=== PATIENT | male | born 1945 | race Caucasian/White ===

== ENCOUNTER → 2017-06-28 11:01 | Outpatient (CLI) | payer MEDICARE, OTHER, SELFPAY ==
[2017-06-28 12:20] LABS: Absolute Lymphocyte Count 1.35 X10^3/ul (0.83-4.51); Absolute Neutrophil Count 5.1 X10^3/uL (2.0-7.7); Basophil# 0.04 X10^3/uL; Basophil% 0.5 % (0-1); Eosinophils% 11.3 % (0-5); Hematocrit 44.8 % (40-54); Hemoglobin 14.7 g/dl (13.0-16.5); Lymphocyte # 1.35 X10^3/ul (4.0); Mean Corp Hgb Conc 32.8 g/gl (32-36); Mean Corpuscular Volume 91.4 fL (80-94); Mean Platelet Vol. 10.6 fl (6.2-12.0); Monocyte# 0.49 X10^3/uL; Monocyte% 6.2 % (0-10); Neutrophil # 5.13 X10^3/uL (2.7-7.7); Neutrophil % 64.7 % (47-70); Platelet Count 319 K/mm3 (150-450); RBC Distribution Width CV 13.9 % (11.6-14.6); White Blood Count 7.9 K/mm3 (4.4-11.0)
[2017-06-28 12:34] LABS: POSITIVE COUNT NO; POSITIVE DIFFERENTIAL NO; POSITIVE MORPHOLOGY NO
[2017-06-28 12:43] LABS: ALB/GLOB Ratio 1.1 RATIO (0.9-2.4); AST(SGOT) 18 U/L (15-37); Alanine Aminotransfer ALT/SGPT 26 U/L (16-61); Albumin, Serum 3.5 g/dL (3.2-5.0); Alkaline Phosphatase 80 U/L (45-117); Anion Gap 9 (5-15); BUN 24 mg/dL (7-18); BUN/Creat Ratio 21.2 RATIO (10-20); Calcium,Total 8.6 mg/dL (8.5-10.1); Chloride 108 mmol/L (98-107); Creatinine, Serum 1.13 mg/dL (0.70-1.30); EST Glomerular Filtration Rate 68 mL/min (>60); Est Glom Filt Rate - Afr Amer 82 mL/min (>60); Globulin 3.2 g/dL (2.2-4.2); Glucose 101 mg/dL (74-106); Potassium 3.7 mmol/L (3.5-5.1); Protein, Total 6.7 g/dL (6.4-8.2); Sodium Level 141 mmol/L (136-145); T4 Free Direct 1.12 ng/dL (0.76-1.46); Thyroid Stim Hormone (TSH) 1.49 uIU/mL (0.358-3.74)
== END ==
PROVIDERS: Family Provider Family Medicine; PCP Family Medicine; Visit Provider Family Medicine
DX: I10 Essential (primary) hypertension (principal); G47.00 Insomnia, unspecified; R50.9 Fever, unspecified
CPT/HCPCS: 36415; 80053; 84439; 84443; 85025

== ENCOUNTER → 2017-07-29 09:53 | Outpatient (CLI) | payer MEDICARE, OTHER, SELFPAY ==
--- NOTE | 2017-07-30 14:41 | PFT ---
INTRODUCTION: The patient is a 72-year-old male currently under the care of Dr. Kessler that presents for pulmonary function testing secondary to a diagnosis of COPD. Respiratory therapy reports good patient effort reports no other concerns. Bronchodilators were used during testing. INTERPRETATION: Forced expiration spirometry demonstrates the presence of a moderate large airways obstructive ventilatory defect. There is no significant response to aerosolized bronchodilators, based upon strict ATS criteria. Spirograms are of good quality and do not plateau indicating slow emptying of the lungs. Body plethysmography was performed and reveals an elevated TLC and RV, indicative of underlying hyperinflation and air-trapping. Diffusing capacity by single breath CO is severely reduced at 32% of predicted. When compared to previous pulmonary function studies dated September 2015 there has been a 25% reduction in the patient's DLCO. IMPRESSION: These pulmonary function studies demonstrate the presence of an irreversible moderate large airways obstructive ventilatory defect with associated hyperinflation, air trapping and worsening diffusing capacity.
== END ==
PROVIDERS: Family Provider Family Medicine; PCP Family Medicine; Visit Provider Internal Medicine Critical Care Medicine
DX: J44.9 Chronic obstructive pulmonary disease, unspecified (principal)
CPT/HCPCS: 94060; 94726; 94729

== ENCOUNTER → 2017-07-30 10:46 | Outpatient (CLI) | payer MEDICARE, OTHER, SELFPAY ==
[2017-07-30 11:00] VITALS: PULSE 105; PULSE 108; PULSE 109; PULSE 111; PULSE 112; PULSE 91; PULSE 93; PULSE 97; O2SAT 90; O2SAT 91; O2SAT 93; O2SAT 95; O2SAT 98
--- NOTE | 2017-07-31 09:21 | WT_ITS ---
PSN 6 Minute Walk Test - 6 Minute Walk Test 6 Minute Walk Test: 6 Minute Walk Test PSN:6-Minute Walk Test Start: 07/30/17 12: 18 Freq: Status: Active Protocol: RESP.6MINW Document 07/30/17 11:00 [facility] [place] (Rec: 07/30/17 12:21 [facility] [place] [place] [id number]) 6 Minute Walk Test Date Performed 07/30/17 Time Performed 11:00 Height 5 ft 7 in Weight: 175 lb Weight in Pounds 175.[address]: Darryn Kessler Assistive device used: None Pre-test Oxygen Delivery Method Room Air Pulse Ox (%) 93 Pulse Rate (60-100 beats/min) 93 Dyspnea Nicole Scale (0-10) 0 Exertion Nicole Scale (6-20) 6 1st minute Oxygen Delivery Method Room Air Pulse Ox (%) 95 Pulse Rate (60-100 beats/min) 97 Number of Rests Taken 0 2nd minute Oxygen Delivery Method Room Air Pulse Ox (%) 90 Pulse Rate (60-100 beats/min) 105 H Number of Rests Taken 0 3rd minute Oxygen Delivery Method Room Air Pulse Ox (%) 90 Pulse Rate (60-100 beats/min) 108 H Number of Rests Taken 0 4th minute Oxygen Delivery Method Room Air Pulse Ox (%) 91 Pulse Rate (60-100 beats/min) 109 H Number of Rests Taken 0 5th minute Oxygen Delivery Method Room Air Pulse Ox (%) 90 Pulse Rate (60-100 beats/min) 111 H Number of Rests Taken 0 6th minute Oxygen Delivery Method Room Air Pulse Ox (%) 91 Pulse Rate (60-100 beats/min) 112 H Number of Rests Taken 0 Post-test Oxygen Delivery Method Room Air Pulse Ox (%) 98 Pulse Rate (60-100 beats/min) 91 Dyspnea Nicole Scale (0-10) 1 Exertion Nicole Scale (6-20) 12 Number of Rests Taken 0 Full Laps Walked 16 Partial Lap, Number of Tiles Walked 34 Total Distance Walked (ft) 978 - Interpretation Interpretation: The patient ambulated 978 feet over the course of 6 minutes beginning on room air without assistive devices or breaks. Pretesting oxygen saturation was noted to be 93% on room air. With ambulation, the anum oxygen saturation was 90%. There was no significant exertional oxygen desaturation. The patient did develop physiologic tachycardia with exertion. - Recommendations Recommendations: There is no indication for the use of supplemental oxygen at this time.
== END ==
PROVIDERS: Family Provider Family Medicine; PCP Family Medicine; Visit Provider Internal Medicine Critical Care Medicine
DX: J44.9 Chronic obstructive pulmonary disease, unspecified (principal)
CPT/HCPCS: 94618

== ENCOUNTER → 2017-08-30 15:17 | Outpatient (CLI) | payer MEDICARE, OTHER, SELFPAY ==
[2017-08-30 17:03] LABS: Absolute Lymphocyte Count 1.51 X10^3/ul (0.83-4.51); Basophil# 0.08 X10^3/uL; Eosinophils% 5.2 % (0-5); Hematocrit 41.9 % (40-54); Lymphocyte # 1.51 X10^3/ul (4.0); Lymphocyte % 19.5 % (19-41); Mean Corp Hgb Conc 33.4 g/gl (32-36); Mean Corpuscular Hgb 29.9 pg (27.0-32.0); Mean Corpuscular Volume 89.5 fL (80-94); Mean Platelet Vol. 11.2 fl (6.2-12.0); Monocyte# 0.76 X10^3/uL; Monocyte% 9.8 % (0-10); Neutrophil # 4.98 X10^3/uL (2.7-7.7); Neutrophil % 64.4 % (47-70); Platelet Count 341 K/mm3 (150-450); RBC Distribution Width CV 13.5 % (11.6-14.6); RBC Distribution Width SD 43.8 fl (35.1-43.9); Red Blood Count 4.68 M/mm3 (4.6-6.2); White Blood Count 7.7 K/mm3 (4.4-11.0)
[2017-08-30 17:06] LABS: POSITIVE COUNT NO; POSITIVE DIFFERENTIAL NO; POSITIVE MORPHOLOGY NO
[2017-09-05 16:06] LABS: Aspirgillus flavus Negative (Neg:<1:1); Aspirgillus fumigatus Negative (Neg:<1:1); Aspirgillus niger Negative (Neg:<1:1)
[2017-09-05 20:07] LABS: Alternaria alternata <0.10 kU/L (Class 0); Bermuda Grass <0.10 kU/L (Class 0); Bluegrass, Kentucky <0.10 kU/L (Class 0); Cat Hair/Dander, Standard <0.10 kU/L (Class 0); D farinae Mite <0.10 kU/L (Class 0); D pteronyssinus <0.10 kU/L (Class 0); Dog Epithelia 0.22 kU/L (Class 0/I); Elm, American White <0.10 kU/L (Class 0); Oak, White <0.10 kU/L (Class 0); Plantain, English <0.10 kU/L (Class 0); Ragweed, Short/Common <0.10 kU/L (Class 0)
[2017-09-06 12:59] LABS: Immunoglobulin E 28 IU/mL (0-100)
[2017-09-06 14:04] LABS: Mouse Urine <0.10 kU/L (Class 0)
== END ==
PROVIDERS: Family Provider Family Medicine; PCP Family Medicine; Visit Provider Nurse Practitioner Acute Care
DX: J45.909 Unspecified asthma, uncomplicated (principal)
CPT/HCPCS: 36415; 82785; 85025; 86003; 86606

== ENCOUNTER 2018-01-12 19:15 | Emergency (ER) | payer MEDICARE, OTHER, SELFPAY ==
[2018-01-12 19:17] VITALS: BP 159/98; PULSE 95; RESP 18; TEMP 36.4; O2SAT 94; BMI 26.6
[2018-01-12 19:26] VITALS: PULSE 89; RESP 17; O2SAT 95
[2018-01-12] MEDS: DiphenhydrAMINE 25 MG Capsule PO (20:16)
[2018-01-12] MEDS: Acetaminophen 500 MG Tablet 1000 MG PO (20:17)
[2018-01-12] MEDS: Diphenoxylate/Atrop 1 Tablet PO (20:17)
--- NOTE | 2018-01-12 20:18 | ED.VISSUMM ---
- ER Visit Summary Date of Service: 01/12/18 Chief Complaint: Bee sting History of Present Illness: The patient is a 72 M multiple bee stings while mowing the lawn outside. States piece came from the ground. Multiple stings, no lip or tongue swelling. No trouble breathing. Has had been stung in the past. Burning sensation. Brought by EMS. 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 Requests Lomotil. Physical Examination: General: Alert and oriented ?3, no acute distress HEENT: Normocephalic, atraumatic. Moist mucosa membranes Neck: supple, nontender. Cardiovascular: Regular rate and rhythm, no murmurs Respiratory: Normal breath sounds, symmetric, no distress Abdomen: Soft, nontender, nondistended Extremities: Nontender, no edema, pulses intact ?4 Neuro: no focal neurological deficits. Skin: Redness with lesions multiple areas right upper scalp left ear right upper arm left proximal forearm left dorsal foot, midthoracic, distal right forearm. There is no stinger present. Test Results: [] Emergency Department Course and Treatment: Patient treated with Tylenol, Benadryl, he requested Lomotil for his short bowel syndrome. He was monitored, no progression of symptoms, multiple reevaluation actually improvement of symptoms. Continue Tylenol Benadryl as needed. Follow-up as an outpatient. Treatment Plan: [] Disposition: Discharge Impression: 1. Multiple bee stings This note was generated with [employer] dictation software. It may contain incorrect words, spelling, and punctuation that were not noted in review of the chart prior to signing ED Disposition - Plan for ED Patient: Disposition: Home or Assisted Living Chief Complaint: Allergic Reaction Diagnosis: Multiple bee stings Instructions: ED Bite Sting Insect Local Allergic React Referrals: Juliano Calabrese MD [Primary Care Provider] - 5-7 Days
[2018-01-12 21:48] VITALS: BP 142/78; PULSE 72; RESP 18; O2SAT 94
== END 2018-01-12 21:50 | disposition home or self-care (01) ==
PROVIDERS: Emergency Provider Emergency Medicine; Family Provider Family Medicine; PCP Family Medicine
DX: T63.441A Toxic effect of venom of bees, accidental (unintentional), initial encounter (principal); Y92.096 Garden or yard of other non-institutional residence as the place of occurrence of the external cause; Z85.038 Personal history of other malignant neoplasm of large intestine; K91.2 Postsurgical malabsorption, not elsewhere classified; I25.2 Old myocardial infarction; I25.10 Atherosclerotic heart disease of native coronary artery without angina pectoris; J44.9 Chronic obstructive pulmonary disease, unspecified; N40.0 Benign prostatic hyperplasia without lower urinary tract symptoms
CPT/HCPCS: 99285

== ENCOUNTER → 2018-05-19 12:19 | Outpatient (CLI) | payer MEDICARE, OTHER, SELFPAY ==
[2018-05-08 12:01] VITALS: BMI 26.6
--- OUTSIDE RECORDS SUMMARY | 2018-07-24 04:21 | XMS RPT_ITS ---
:1945 External Reference #:[id number] Author Organization [employer] Support Name Relationship Address Phone ASTORGA, ANTONINA Unavailable [address] + [place] [address] R Unavailable Unavailable Unavailable ASTORGA, ANTONINA Unavailable [address] + [place] [address] R Unavailable Unavailable Unavailable ASTORGA, ANTONINA Unavailable [address] + [place] [address] R Unavailable Unavailable Unavailable ASTORGA, ANTONINA Unavailable [address] + [place] [address] R Unavailable Unavailable Unavailable ASTORGA, ANTONINA Unavailable [address] + [place] [address] R Unavailable Unavailable Unavailable ASTORGA, ATNONINA Unavailable [address] + [place] [address] R Unavailable Unavailable Unavailable ASTORGA, ANTONINA Unavailable [address] + [place] [address] R Unavailable Unavailable Unavailable ASTORGA, ANTONINA Unavailable [address] + [place] [address] R Unavailable Unavailable Unavailable ASTORGA, ANTONINA Unavailable [address] + [place] [address] R Unavailable Unavailable Unavailable ASTORGA, ANTONINA Unavailable [address] + [place] [address] R Unavailable Unavailable Unavailable ASTORGA, ANTONINA Unavailable [address] + [place] [address] R Unavailable Unavailable Unavailable ASTORGA, ANTONINA Unavailable [address] + [place] [address] R Unavailable Unavailable Unavailable Care Team Providers Name Role Phone Jeremiah Choe Attending Unavailable Guanakito, Juliano Referring Unavailable Lyon, Monalisa Attending Unavailable Lyon, Monalisa Referring Unavailable Guanakito, Juliano Primary Care Unavailable Chceo, Darryn Attending Unavailable Checo, Darryn Referring Unavailable Guanakito, Juliano Primary Care Unavailable Checo, Darryn Attending Unavailable Checo, Darryn Referring Unavailable Guanakito, Juliano Primary Care Unavailable Guanakito, Juliano Attending Unavailable Guanakito, Juliano Referring Unavailable Guanakito, Juliano Primary Care Unavailable Lyon, Monalisa Attending Unavailable Guanakito, Juliano Referring Unavailable Js Arnold D.O. Attending Unavailable Checo, Darryn Referring Unavailable Js Arnold D.O. Attending Unavailable Checo, Darryn Referring Unavailable Lyon, Monalisa Attending Unavailable Guanakito, Juliano Referring Unavailable Lyon, Monalisa Attending Unavailable Lyon, Monalisa Referring Unavailable Guanakito, Juliano Primary Care Unavailable Checo, Darryn Attending Unavailable Guanakito, Juliano Referring Unavailable Guanakito, Juliano Primary Care Unavailable Guanakito, Juliano Primary Care Unavailable Viral Gutiérrez Attending Unavailable PROBLEMS PROBLEMS DATE TYPE CONDITION / CODE ATTENDING STATUS SOURCE 05/08/2018 Unknown R05 - Cough / Choe, Jeremiah Active [place] R05(ICD-10) [facility] Repository 08/30/2017 Unknown J45.909 - Camron, Active [place] Unspecified asthma, [facility] uncomplicated / Hospital J45.909(ICD-10) Repository 08/12/2017 Unknown J44.9 - Chronic Js Arnold, Active [place] obstructive D.O. [facility] pulmonary disease, Hospital unspecified / Repository J44.9(ICD-10) PROCEDURES PROCEDURES No Procedure Records FoundRESULTS RESULTS Observed: 05/19/2018 Status: F Source: [place] CULTURE, SPUTUM 12:22 PM [facility] [place] [facility] Gram Stain Gram Stain 1+ Gram positive cocci 1+ White Blood Cells Resp. Culture Mixed normal respiratory adolph. No Streptococcus pneumoniae, beta-hemolytic Streptococcus or Staphylococcus aureus isolated. Performed By: #### [id number] #### [facility] [address] [place], [place] [address]su[place], [address] URGENT CARE VISIT Observed: 05/08/2018 Status: F Source: [place] REPORT 12:17 PM [facility] [place] [facility] [address] [place] [address] OFFICE VISIT Date of Service: 05/08/18 MR#: [id number] Acct: [id number] Name: BETTE ASTORGA Rep #: [id number] : 1945 Provider: FLORA Choe Age/Sex: 73/M Location: [facility] [place] Status: Signed Intake Vital Signs05/08/18 Body Mass Index (BMI) 26.6 05/08/18 Height 5 ft 8 in Intake Visit Reasons: HOARSE/COUGH/RICHARDS Chief Complaint: horse/ cough Pastry Wrapper Required: No Accompanied by: self Is patient in pain?: No Allergies aspirin Allergy (Verified 05/08/18 12:01) Shortness of breath adhesive Adverse Reaction (Verified 05/08/18 12:01) Rash amoxicillin trihydrate [From Augmentin] Adverse Reaction (Verified 05/08/18 12:01) Other atorvastatin calcium [From Lipitor] Adverse Reaction (Verified 05/08/18 12:01) Unknown doxycycline Adverse Reaction (Verified 05/08/18 12:01) Rash metoprolol succinate [From Toprol XL] Adverse Reaction (Verified 05/08/18 12:01) Rash naproxen [From Naprosyn] Adverse Reaction (Verified 05/08/18 12:01) Shortness of breath paroxetine HCl [From Paxil] Adverse Reaction (Verified 05/08/18 12:01) Unknown potassium clavulanate [From Augmentin] Adverse Reaction (Verified 05/08/18 12:01) Unknown propoxyphene HCl [From Darvon] Adverse Reaction (Verified 05/08/18 12:01) Unknown sertraline HCl [From Zoloft] Adverse Reaction (Verified 05/08/18 12:01) Unknown simvastatin [From Zocor] Adverse Reaction (Verified 05/08/18 12:01) Unknown tiotropium bromide [From Spiriva with HandiHaler] Adverse Reaction (Verified 05/08/18 12:01) Other RUBBING ALCOHOL Adverse Reaction (Uncoded 05/08/18 12:01) Rash Medications Clopidogrel Bisulfate [Plavix] 75 mg PO DAILY 02/14/13 [History Confirmed 05/08/18] Diphenoxylate/Atrop [Lomotil] 2 tab PO 4X/DAY PRN PRN 02/14/13 [History Confirmed 05/08/18] Garlic 1 mg PO DAILY 02/14/13 [History Confirmed 05/08/18] Glucosamine/MSM/Chondroitin A [Glucosamine Chondroit MSM Tab] 1 ea PO DAILY 02/14/13 [History Confirmed 05/08/18] Ipratropium 20 - 100 mcg INHALATION Q6H PRN PRN 02/14/13 [History Confirmed 05/08/18] Lorazepam [Ativan] 2 mg PO QHS PRN PRN 02/14/13 [History Confirmed 05/08/18] Nitroglycerin [Nitrostat] 0.4 mg SUBLINGUAL Q5M PRN 02/14/13 [History Confirmed 05/08/18] Piroxicam [Feldene] 10 mg PO DAILY 02/14/13 [History Confirmed 05/08/18] Verapamil HCl [Verelan Pm] 200 mg PO QHS 02/14/13 [History Confirmed 05/08/18] Ipratropium/Albuterol Respimat [Combivent Respimat Inhal [place]] 1 puff INHALATION PRN PRN 10/30/14 [History Confirmed 05/08/18] Melatonin/Pyridoxine HCl (B6) [Melatonin 10 mg Tablet] 1 ea PO DAILY 11/05/14 [History Confirmed 05/08/18] budesonide 0.5 mg/2 mL suspension for nebulization 0.25 mg INHALATION Q12H 06/11/17 [History Confirmed 05/08/18] formoterol fumarate 20 mcg/2 mL solution for nebulization 2 ml INHALATION Q12H 06/11/17 [History Confirmed 05/08/18] PFSH Medical History Short bowel syndrome (Chronic) BPH (benign prostatic hyperplasia) (Chronic) Personal history of other malignant neoplasm of rectum, rectosigmoid junction, and anus (Chronic) Tachycardia (Chronic) 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 classification (Chronic) History of colon cancer (Chronic) COPD (chronic obstructive pulmonary disease) (Chronic) Dyspnea (Acute) Surgical History Status post laparoscopic colectomy (Resolved) history of right eye surgery (Resolved) History of right inguinal hernia repair (Resolved) History of tonsillectomy (Resolved) History of coronary angioplasty (Chronic) Family History Father Heart disease Social History Smoking Status: Former smoker pack-years: 67 second hand exposure: No alcohol intake: never substance use type: does not use caffeine: Yes Type: coffee Number of servings: 4 what type of physical activity do you participate in: other details: pulmonary rehab frequency: 3-4 times per week HPI HPI Chief Complaint: horse/ cough Details: BETTE ASTORGA, is a 73 M who presents to the office today for since 05/07/2018. He has had occasional phlegm production. He states he has COPD and takes his albuterol daily. He has not any fevers. He is concerned because his voice is becoming hoarse. He denies any wheezing or shortness of breath. ROS Const Constitutional: No chills or fever(s) Eyes Eyes: No change in vision ENT ENT: Positive for hoarseness; no ear pain, sore throat, nasal congestion or nasal discharge Resp Respiratory: Positive for cough Cough: Yes productive (Clear pale yellow sputum) Cardio Cardiology: No chest pain at rest or chest pain with exertion Gastro GI: No abdominal pain, diarrhea, vomiting or nausea/dyspepsia Genitourinary Male: No urinary frequency, urinary urgency or difficulty urinating Musc Musculoskeletal: No back pain or abnormal walking Skin Skin: No rash or change in skin color Neuro Neurology: No confusion, abnormal walking or abnormal speech Psych Psychiatric: No confusion Exam Const General: healthy appearing, no acute distress Orientation: oriented x3, oriented to person, oriented to place, oriented to time [facility] Head: normocephalic Ears: external ears normal, TM's normal bilaterally, EAC's normal Eyes General: appearance normal, both eyes and all related structures Conjunctivae: conjunctivae normal Sclera: sclerae normal Pupils: PERRL Neck Neck: no lymphadenopathy Thyroid: thyroid normal Chest Chest palpation AND inspection: normal inspection of the chest Resp Effort AND Inspection: normal respiratory effort, no cough, no respiratory distress Auscultation: Bilateral: Clear to Auscultation Cardio Rate: regular rate Rhythm: regular rhythm GI Inspection: normal to inspection Auscultation: normal bowel sounds Palpation: no hepatosplenomegaly, no splenomegaly, no masses Skin General: no pallor Rashes: no rashes Nails: no clubbing Neuro General: oriented x3, gait normal Extrem General: normal to inspection, no pedal edema, no calf tenderness, normal gait, no edema, no cyanosis, no clubbing, no calf tenderness bilaterally, no pedal edema Psych Mood: congruent mood Affect: normal affect Speech and Movement: speech and movement normal Assessment AND Plan Problems 1. Cough R05 Plan The patient was reassured that his exam was within normal limits. He had no wheezing rhonchi or crackles to suggest respiratory infection. He was encouraged to begin warm salt water gargles honey lemon juice as needed. Continue his bronchodilator treatments. If fevers develop or symptoms worsen return to the clinic or follow- up with your primary care physician. The patient declined any prescription cough medicine today and preferred to treat his cough with OTC medications Coding Level of Care Code Off vis,est,level 3 Diagnoses Cough R05 05/08/18 1217 <Electronically signed by Jeremiah HINES> Date Jeremiah HINES Cosigner Signature: Date (if applicable) CC: EMERGENCY DEPARTMENT Observed: 01/12/2018 Status: F Source: [place] SUMMARY 9:30 PM [facility] [place] [facility] Medical Records Department [address] [place] [address] Emergency Department Summary 01/12/182017 MR#: [id number] Acct: [id number] Name: BETTE ASTORGA Rep #: [id number] : 1945 72 From: Viral Garcia PCP: Juliano Calabrese MD Status: REG ER - ER Visit Summary Date of Service: 01/12/18 Chief Complaint: Bee sting History of Present Illness: The patient is a 72 M multiple bee stings while mowing the lawn outside. States piece came from the ground. Multiple stings, no lip or tongue swelling. No trouble breathing. Has had been stung in the past. Burning sensation. Brought by EMS. 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 Requests Lomotil. Physical Examination: General: Alert and oriented 3, no acute distress HEENT: Normocephalic, atraumatic. Moist mucosa membranes Neck: supple, nontender. Cardiovascular: Regular rate and rhythm, no murmurs Respiratory: Normal breath sounds, symmetric, no distress Abdomen: Soft, nontender, nondistended Extremities: Nontender, no edema, pulses intact 4 Neuro: no focal neurological deficits. Skin: Redness with lesions multiple areas right upper scalp left ear right upper arm left proximal forearm left dorsal foot, midthoracic, distal right forearm. There is no stinger present. Test Results: [] Emergency Department Course and Treatment: Patient treated with Tylenol, Benadryl, he requested Lomotil for his short bowel syndrome. He was monitored, no progression of symptoms, multiple reevaluation actually improvement of symptoms. Continue Tylenol Benadryl as needed. Follow-up as an outpatient. Treatment Plan: [] Disposition: Discharge Impression: 1. Multiple bee stings This note was generated with Kakoonaation software. It may contain incorrect words, spelling, and punctuation that were not noted in review of the chart prior to signing ED Disposition - Plan for ED Patient: Disposition: Home or Assisted Living Chief Complaint: Allergic Reaction Diagnosis: Multiple bee stings Instructions: ED Bite Sting Insect Local Allergic React Referrals: Juliano Calabrese MD [Primary Care Provider] - 5-7 Days What to do if you have Problems For any increased pain, shortness of breath, bleeding, nausea or vomiting, chest pain, or any unexpected problems, contact your Primary Care Provider. Call [facility] ([phone]) or report to the closest Emergency Room. Call 911 if necessary. 01/12/18 2130 <Electronically signed by Viral Garcia> Date Viral Garcia Cosigner Signature (If Indicated): Date CC: Juliano Calabrese MD PULMONARY VISIT REPORT Observed: 01/10/2018 Status: F Source: [place] 3:03 PM [facility] [place] [facility] [place] [facility] [address] [place] [address] OFFICE VISIT Date of Service: 01/10/18 MR#: [id number] Acct: [id number] Name: BETTE ASTORGA Rep #: [id number] : 1945 Provider: Darryn Kessler MD Age/Sex: 72/M Location: [facility] [place] Status: Signed Assessment AND Plan Problems 1. 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 classification J44.9 2. Moderate persistent asthma with acute exacerbation J45.41 3. 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 Patient does have an allergy to dogs and has multiple dogs at home. Patient is not interested in getting rid of his dogs. Stressed to the patient that using budesonide twice daily may help avoid future exacerbations. Patient voiced understanding. Patient does report snoring at baseline, but has no interest in his sleep workup. Sick policy was reviewed in detail. Signs and symptoms of exacerbation were also reviewed and patient voiced understanding. Patient to use budesonide twice daily. Continue Perforomist HPI 6 M FU: Details: Patient is a 72-year-old male, currently under care of Dr. Calabrese, who presents for evaluation secondary to shortness of breath on exertion. Since last visit, patient denies any ER visits, hospitalizations or prednisone burst. Patient feels subjectively unchanged compared to previous. Patient reports that he does use budesonide and Perforomist, but states that he only uses these in the morning. Patient does not use any evening doses. Patient does have Combivent for rescue, but states he has not used this in quite some time. Patient continues to report some dyspnea on exertion. Patient does not believe this is significantly different compared to previous. Patient denies any environmental exposures including tobacco or noxious chemicals. Patient does report that he has multiple dogs at home and has no intention of getting rid of them. Patient does have a history of aspirin sensitive asthma, but has not used aspirin since age 17. Patient has had multiple nasal polyps removed in the past. Patient uses only Tylenol for pain. Patient continues to report significant snoring and poor sleep. Patient is tired during the day, but states there is no way of wearing CPAP. Testing personally reviewed with the patient Lab work (08/30/2017): Eosinophils 5.2% (WBC 7.7), positive dog allergy at 0.22 and negative Aspergillus antibodies. IgE of 28. Intake Vital Signs01/10/18 Height 5 ft 7 in 01/10/18 Weight: 79.832 kg Intake Visit Reasons: 6 M FU Chief Complaint: Shortness of breath Accompanied by: Family / Other Allergies aspirin Allergy (Verified 01/10/18 13:06) Shortness of breath adhesive Adverse Reaction (Verified 01/10/18 13:06) Rash amoxicillin trihydrate [From Augmentin] Adverse Reaction (Verified 01/10/18 13:06) Other atorvastatin calcium [From Lipitor] Adverse Reaction (Verified 01/10/18 13:06) Unknown doxycycline Adverse Reaction (Verified 01/10/18 13:06) Rash metoprolol succinate [From Toprol XL] Adverse Reaction (Verified 01/10/18 13:06) Rash naproxen [From Naprosyn] Adverse Reaction (Verified 01/10/18 13:06) Shortness of breath paroxetine HCl [From Paxil] Adverse Reaction (Verified 01/10/18 13:06) Unknown potassium clavulanate [From Augmentin] Adverse Reaction (Verified 01/10/18 13:06) Unknown propoxyphene HCl [From Darvon] Adverse Reaction (Verified 01/10/18 13:06) Unknown sertraline HCl [From Zoloft] Adverse Reaction (Verified 01/10/18 13:06) Unknown simvastatin [From Zocor] Adverse Reaction (Verified 01/10/18 13:06) Unknown tiotropium bromide [From Spiriva with HandiHaler] Adverse Reaction (Verified 01/10/18 13:06) Other RUBBING ALCOHOL Adverse Reaction (Uncoded 01/10/18 13:06) Rash Medications Clopidogrel Bisulfate [Plavix] 75 mg PO DAILY 02/14/13 [History Confirmed 01/10/18] Diphenoxylate/Atrop [Lomotil] 2 tab PO 4X/DAY PRN PRN 02/14/13 [History Confirmed 01/10/18] Garlic 1 mg PO DAILY 02/14/13 [History Confirmed 01/10/18] Glucosamine/MSM/Chondroitin A [Glucosamine Chondroit MSM Tab] 1 ea PO DAILY 02/14/13 [History Confirmed 01/10/18] Ipratropium 20 - 100 mcg INHALATION Q6H PRN PRN 02/14/13 [History Confirmed 01/10/18] Lorazepam [Ativan] 2 mg PO QHS PRN PRN 02/14/13 [History Confirmed 01/10/18] Nitroglycerin [Nitrostat] 0.4 mg SUBLINGUAL Q5M PRN 02/14/13 [History Confirmed 01/10/18] Piroxicam [Feldene] 10 mg PO DAILY 02/14/13 [History Confirmed 01/10/18] Verapamil HCl [Verelan Pm] 200 mg PO QHS 02/14/13 [History Confirmed 01/10/18] Ipratropium/Albuterol Respimat [Combivent Respimat Inhal [place]] 1 puff INHALATION PRN PRN 10/30/14 [History Confirmed 01/10/18] Melatonin/Pyridoxine HCl (B6) [Melatonin 10 mg Tablet] 1 ea PO DAILY 11/05/14 [History Confirmed 01/10/18] budesonide 0.5 mg/2 mL suspension for nebulization 0.25 mg INHALATION Q12H 06/11/17 [History Confirmed 01/10/18] formoterol fumarate 20 mcg/2 mL solution for nebulization 2 ml INHALATION Q12H 06/11/17 [History Confirmed 01/10/18] PFSH Medical History Short bowel syndrome (Chronic) BPH (benign prostatic hyperplasia) (Chronic) Personal history of other malignant neoplasm of rectum, rectosigmoid junction, and anus (Chronic) Tachycardia (Chronic) 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 classification (Chronic) History of colon cancer (Chronic) COPD (chronic obstructive pulmonary disease) (Chronic) Dyspnea (Acute) Surgical History Status post laparoscopic colectomy (Resolved) history of right eye surgery (Resolved) History of right inguinal hernia repair (Resolved) History of tonsillectomy (Resolved) History of coronary angioplasty (Chronic) Family History Father Heart disease Social History Smoking Status: Former smoker pack-years: 67 second hand exposure: No alcohol intake: never substance use type: does not use caffeine: Yes Type: coffee Number of servings: 4 what type of physical activity do you participate in: other details: pulmonary rehab frequency: 3-4 times per week Review of Systems Const CONSTITUTIONAL: Negative anorexia, body ache, chills, daytime sleepiness, fever(s), night sweats, oral thrush, stops breathing during sleep, weight loss, sleeping in chair, fatigue, weight loss, weight gain, frequent colds, seasonal allergies, other, headache(s) or orthopnea EETM Ear Nose Throat Mouth: Positive hearing normal; negative hard of hearing, hoarseness, dry mouth in morning, change in vision, itchy eyes, eye pain, swallowing Difficulty, ear pain, nose bleed, headache(s), mouth pain, nasal congestion, nasal discharge, post nasal drip, sinus pain, sinus pressure, sore throat or other Cardio Cardiovascular: Negative chest pain, chest pain at rest, chest pain with activity, irregular heart rhythm, edema, shortness of breath when lying down, palpitations, murmur or other Resp Respiratory: Positive as per HPI and shortness of breath shortness of breath: Positive with activity; negative pain with cough, wheezing, chest congestion, cough, chest tightness, pain on inspiration, inhalers, increase use of rescue inhalers, snoring, apnea or other Gastro Gastrointestional: Negative bloody stools, change in appetite, difficulty swallowing, reflux, hematemesis, melena stool, loose stool, constipation or other Genitourinary: Negative blood in urine, nocturia, pain with urination or other Musc Musculoskeletal: Negative body pain, back pain, neck pain or other Skin/Breast Skin/Breast: Negative dry skin, itching, rash, unusual bruising, breast lump or other Neuro Neurological: Negative restless legs, confusion, weakness or other Psych Psychocological: Negative abnormal sleep pattern, anxiety, thoughts of hurting self/others, hopelessness or other Lymph Lymphatic: Negative easy bleeding, easy bruising, swollen lymph nodes or other Exam Const Constitutional: Positive conversant, cooperative, in no acute respiratory distress, healthy appearing, well developed, well nourished and good hygiene; negative wearing supplemental oxygen or ill appearing Head Head: Positive normocephalic and atraumatic; negative cyanosis of lips/distal nose, frontal sinus tenderness or maxillary sinus tenderness Eyes Eye: Positive clear conjunctiva; negative nystagmus, scleral abnormality or cataract present Ears Ear: Positive hearing normal and external ears normal; negative hard of hearing Nose Nose: Positive external nose normal, septum normal and no nasal discharge; negative epistaxis or nasal polyp Mouth Mouth: Positive oral mucosae normal, no lesions and posterior oropharynx is adequate; negative post nasal drip, malodorous breath or oral thrush present Mallampati Score: II: Mallampati Score Neck Neck: Positive normal visual inspection, full ROM and trachea midline; negative lymphadenopathy or JVD Chest Wall Chest: Positive symmetric chest movement and increased A/P diameter; negative crepitus or tenderness Resp lung sounds: Positive clear to auscultation, diminished, wheeze present on forced exhalation and prolonged expiratory time; negative wheezes, rhonchi, rales, use of accessory muscles or dullness to percussion Cardio Cardiac: Positive regular rate, regular rhythm, S1 normal and S2 normal; negative murmur, rub or gallop GI GI: Positive normal to inspection and normal bowel sounds; negative distended, ascites or epigastric tenderness Genitourinary: Positive deferred Musc Musculoskeletal: Positive steady gait; negative using an assistive device for ambulation, kyphosis or scoliosis Skin Pulmonary Skin Exam: Positive intact; negative rash, lesion, ulcers, erythema or dermal atrophy Pulses Pulse: Yes radial pulses present Extremities Extremities: Yes capillary refill normal, No clubbing, No cyanosis, No edema, No stasis dermatitis Neuro Neurologic: Yes conversant, Yes no focal neuro deficits, Yes normal coordination, Yes normal concentration, Yes cooperative, Yes normal cognition, Yes understands questions Lymph Lymphatic: No lymphadenopathy Psych Appearance: Positive grossly normal Mental Status: Positive mental status grossly normal Mood: Positive congruent mood Affect: Positive normal affect Coding Level of Care Code Off vis,est,level 3 Diagnoses 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 classification J44.9 Moderate persistent asthma with acute exacerbation J45.41 Asthma severity: moderate Asthma persistence: persistent Asthma complication type: with acute exacerbation 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 [place] [address] OFFICE VISIT Date of Service: 08/30/17 MR#: [id number] Acct: [id number] Name: BETTE ASTORGA Rep #: [id number] : 1945 Provider: Monalisa Lyon Age/Sex: 72/M Location: [facility] [place] Status: Signed Assessment AND Plan 1. 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 classification J44.9 Status Chronic FEV1 76% of predicted Plan Appears to be in exacerbation today. Plan to treat with Levaquin and a prednisone taper. Keep previously scheduled routine follow-up with Dr. Kessler in January. No change in maintenance medications at this time. He has been advised to contact the office after 2 days on the antibiotic to give us an update on how he is responding. 2. Moderate persistent asthma with acute exacerbation J45.41 Status Acute Plan In acute exacerbation. Plan to do additional testing to identify if there are any other therapies may be helpful in controlling these frequent exacerbations. Blood work today to be completed consists of a CBC with differential trying to identify possible eosinophilic asthma, and IgE level, Aspergillus antibodies and a Rast test. The patient is agreeable to testing, we will speak by phone after results have returned to continue to develop a plan. Plan Detail Other Orders Orders: Other Medications New: prednisone take 4 tabs for three days, then 3 tabs for three day10 mg PO QDAY s, then 2 tabs for three days, then 1 tab for 3 days HPI hard time breathing: Chief Complaint: Cough HPI Comments Details: This patient presents the office today for an acute visit regarding cough. He is ambulatory, currently on room air. He reports that his symptoms began fairly suddenly on Wednesday. He reports that he got up early Wednesday morning at 4:30 AM to go fishing out on the dye. He finished until 4 PM that day, at that time he became very short of breath and had chest tightness. He reports that he needed to use his rescue inhaler and thought that he may even need to go to the emergency room for evaluation. He did not end up going to the emergency room. He remained compliant with his Perforomist by nebulizer twice daily and his DuoNeb's by nebulizer 3-4 times daily. He reports a cough that is productive of yellow to green sputum. He has wheezing and chest congestion. He denies any fever, chills or body aches. He denies any chest pain, palpitations or hemoptysis. He does report that these exacerbations occur in the spring and in the fall. He states that he has had asthma and allergies all of his life but was last tested for allergies more than 10 years ago. Intake Vital Signs08/30/17 Height 5 ft 7 in 08/30/17 Weight: 182 lb Intake Visit Reasons: hard time breathing Chief Complaint: Shortness of breath Accompanied by: Self Allergies aspirin Allergy (Verified 08/30/17 14:44) Shortness of breath adhesive Adverse Reaction (Verified 08/30/17 14:44) Rash amoxicillin trihydrate [From Augmentin] Adverse Reaction (Verified 08/30/17 14:44) Other atorvastatin calcium [From Lipitor] Adverse Reaction (Verified 08/30/17 14:44) Unknown doxycycline Adverse Reaction (Verified 08/30/17 14:44) Rash metoprolol succinate [From Toprol XL] Adverse Reaction (Verified 08/30/17 14:44) Rash naproxen [From Naprosyn] Adverse Reaction (Verified 08/30/17 14:44) Shortness of breath paroxetine HCl [From Paxil] Adverse Reaction (Verified 08/30/17 14:44) Unknown potassium clavulanate [From Augmentin] Adverse Reaction (Verified 08/30/17 14:44) Unknown propoxyphene HCl [From Darvon] Adverse Reaction (Verified 08/30/17 14:44) Unknown sertraline HCl [From Zoloft] Adverse Reaction (Verified 08/30/17 14:44) Unknown simvastatin [From Zocor] Adverse Reaction (Verified 08/30/17 14:44) Unknown tiotropium bromide [From Spiriva with HandiHaler] Adverse Reaction (Verified 08/30/17 14:44) Other RUBBING ALCOHOL Adverse Reaction (Uncoded 08/30/17 14:44) Rash Medications Clopidogrel Bisulfate [Plavix] 75 mg PO DAILY 02/14/13 [History Confirmed 08/30/17] Diphenoxylate/Atrop [Lomotil] 2 tab PO 4X/DAY PRN PRN 02/14/13 [History Confirmed 08/30/17] Garlic 1 mg PO DAILY 02/14/13 [History Confirmed 08/30/17] Glucosamine/MSM/Chondroitin A [Glucosamine Chondroit MSM Tab] 1 ea PO DAILY 02/14/13 [History Confirmed 08/30/17] Ipratropium 20 - 100 mcg INHALATION Q6H PRN PRN 02/14/13 [History Confirmed 08/30/17] Lorazepam [Ativan] 2 mg PO QHS PRN PRN 02/14/13 [History Confirmed 08/30/17] Nitroglycerin [Nitrostat] 0.4 mg SUBLINGUAL Q5M PRN 02/14/13 [History Confirmed 08/30/17] Piroxicam [Feldene] 10 mg PO DAILY 02/14/13 [History Confirmed 08/30/17] Verapamil HCl [Verelan Pm] 200 mg PO QHS 02/14/13 [History Confirmed 08/30/17] Ipratropium/Albuterol Respimat [Combivent Respimat Inhal [place]] 1 puff INHALATION PRN PRN 10/30/14 [History Confirmed 08/30/17] Melatonin/Pyridoxine HCl (B6) [Melatonin 10 mg Tablet] 1 ea PO DAILY 11/05/14 [History Confirmed 08/30/17] budesonide 0.5 mg/2 mL suspension for nebulization 0.25 mg INHALATION Q12H 06/11/17 [History Confirmed 08/30/17] formoterol fumarate 20 mcg/2 mL solution for nebulization 2 ml INHALATION Q12H 06/11/17 [History Confirmed 08/30/17] levofloxacin 500 mg tablet 500 mg PO Q24H 5 Days #5 tab 08/30/17 [Rx Confirmed 08/30/17] prednisone 10 mg tablet 10 mg PO QDAY #30 tab 08/30/17 [Rx Confirmed 08/30/17] PFSH Medical History Short bowel syndrome (Chronic) BPH (benign prostatic hyperplasia) (Chronic) Personal history of other malignant neoplasm of rectum, rectosigmoid junction, and anus (Chronic) Tachycardia (Chronic) 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 classification (Chronic) History of colon cancer (Chronic) COPD (chronic obstructive pulmonary disease) (Chronic) Dyspnea (Acute) Surgical History Status post laparoscopic colectomy (Resolved) history of right eye surgery (Resolved) History of right inguinal hernia repair (Resolved) History of tonsillectomy (Resolved) History of coronary angioplasty (Chronic) Family History Father Heart disease Social History Smoking Status: Former smoker pack-years: 67 second hand exposure: No alcohol intake: never substance use type: does not use caffeine: Yes Type: coffee Number of servings: 4 what type of physical activity do you participate in: other details: pulmonary rehab frequency: 3-4 times per week FEV1% FEV1%: 76 Review of Systems Const CONSTITUTIONAL: Positive anorexia and chills (Sat. ); negative body ache, daytime sleepiness, fever(s), night sweats, oral thrush, stops breathing during sleep, weight loss, sleeping in chair, fatigue, weight loss, weight gain, frequent colds, seasonal allergies, other, headache(s) or orthopnea EETM Ear Nose Throat Mouth: Positive hoarseness, nasal congestion, nasal discharge and post nasal drip; negative hard of hearing, hearing normal, dry mouth in morning, change in vision, itchy eyes, eye pain, swallowing Difficulty, ear pain, nose bleed, headache(s), mouth pain, sinus pain, sinus pressure, sore throat or other Cardio Cardiovascular: Negative chest pain, chest pain at rest, chest pain with activity, irregular heart rhythm, edema, shortness of breath when lying down, palpitations, murmur or other Resp Respiratory: Positive as per HPI, shortness of breath shortness of breath: Positive with activity and worsening, wheezing, chest congestion, cough cough: Positive productive color: Positive thick, yellow and green, chest tightness and pain on inspiration (feels like my lungs are on fire); negative pain with cough, inhalers, increase use of rescue inhalers, snoring, apnea or other Gastro Gastrointestional: Negative bloody stools, change in appetite, difficulty swallowing, reflux, hematemesis, melena stool, loose stool, constipation or other Genitourinary: Negative blood in urine, nocturia, pain with urination or other Musc Musculoskeletal: Negative body pain, back pain, neck pain or other Skin/Breast Skin/Breast: Negative dry skin, itching, rash, unusual bruising, breast lump or other Neuro Neurological: Negative restless legs, confusion, weakness or other Psych Psychocological: Negative abnormal sleep pattern, anxiety, thoughts of hurting self/others, hopelessness or other Lymph Lymphatic: Negative easy bleeding, easy bruising, swollen lymph nodes or other Exam Const Constitutional: Positive conversant, cooperative, in no acute respiratory distress, healthy appearing, well developed, well nourished and good hygiene Head Head: Positive normocephalic and atraumatic; negative cyanosis of lips/distal nose Eyes Eye: Positive clear conjunctiva and nystagmus; negative scleral abnormality Ears Ear: Positive external ears normal; negative hard of hearing or hearing normal Nose Nose: Positive external nose normal and no nasal discharge; negative epistaxis Mouth Mouth: Positive post nasal drip, oral mucosae normal, no lesions, good dentition and posterior oropharynx is adequate; negative malodorous breath or oral thrush present Mallampati Score: II: Mallampati Score Neck Neck: Positive normal visual inspection, full ROM and trachea midline; negative lymphadenopathy, JVD or tender Chest Wall Chest: Positive symmetric chest movement and increased A/P diameter Resp lung sounds: Positive diminished, prolonged expiratory time and increased work of breathing; negative wheezes, rhonchi, rales, dullness to percussion, wheeze present on forced exhalation or use of accessory muscles Cardio Cardiac: Positive regular rate, regular rhythm, S1 normal and S2 normal; negative murmur GI GI: Positive normal to inspection and normal bowel sounds; negative distended Genitourinary: Positive deferred [facility] Musculoskeletal: Positive steady gait and ROM normal; negative kyphosis or scoliosis Skin Pulmonary Skin Exam: Positive intact; negative rash, lesion, ulcers, erythema, scaly or dermal atrophy Pulses Pulse: Yes pulses normal x4 extremities Extremities Extremities: Yes capillary refill normal, No clubbing, No cyanosis, No edema Neuro Neurologic: Yes conversant, Yes no focal neuro deficits, Yes cooperative, Yes normal cognition, Yes normal coordination, Yes normal concentration, Yes understands questions Lymph Lymphatic: No lymphadenopathy, No tenderness, No cervical adenopathy, No axillary adenopathy Psych Appearance: Positive grossly normal, eye contact and well kempt Mental Status: Positive mental status grossly normal Mood: Positive congruent mood Affect: Positive normal affect Coding Level of Care Code Off vis,est,level 4 Diagnoses 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 classification J44.9 Moderate persistent asthma with acute exacerbation J45.41 Asthma severity: moderate Asthma persistence: persistent Asthma complication type: with acute exacerbation 08/30/17 1553 <Electronically signed by Monalisa Lyon LAMP DEVELOPER-C> Date Monalisa Lyon LAMP DEVELOPER-C Cosigner Signature: Date (if applicable) CC: Juliano Calabrese CBC W/DIFF, AUTOMATED Collected: 08/30/2017 Status: F Source: [place] 3:28 PM [facility] [place] CODE TESTS RESULT OUT OF RANGE REFERENCE UNITS LAB L100.1000 4.4-11.0 K/mm3 Normal WBC 7.7 LAB L100.1200 4.6-6.2 M/mm3 Normal RBC 4.68 LAB L100.1300 13.0-16.5 g/dl Normal HGB 14.0 LAB L100.1400 40-54 % Normal HCT 41.9 LAB L100.1500 80-94 fL Normal MCV 89.5 LAB L100.1600 27.0-32.0 pg Normal MCH 29.9 LAB L100.1700 32-36 g/gl Normal MCHC 33.4 LAB L100.1810 11.6-14.6 % Normal RDW CV 13.5 LAB L100.1820 35.1-43.9 fl Normal RDW SD 43.8 LAB L100.1900 150-450 K/mm3 Normal PLT 341 LAB L100.2000 6.2-12.0 fl Normal MPV 11.2 LAB L100.2100 47-70 % Normal NEUT% 64.4 LAB L100.2200 19-41 % Normal LY% 19.5 LAB L100.2300 0-10 % Normal MONO% 9.8 LAB L100.2400 0-5 % High EO% 5.2 LAB L100.2500 0-1 % Normal BASO% 1.0 LAB L100.2550 0.0-0.9 % Normal IM GRAN % 0.100 Result Comment: IG% - Immature Granulocytes (promyelocytes, myelocytes and metamyelocytes) > 1% indicates that a LEFT SHIFT is Present. LAB L100.2620 2.0-7.7 X10 3/uL Normal Absolute Neut 5.0 LAB L100.2720 0.83-4.51 X10 3/ul Normal Absolute Lymph 1.51 Performed By: #### L100.0100 #### [facility] [address] [place], [address] #### L3200.1600, L3500.3600 #### [facility] (refer to report for specific site) refer to report for address and phone number IMMUNOGLOBULIN E Collected: 08/30/2017 Status: F Source: [place] 3:28 PM [facility] [place] CODE TESTS RESULT OUT OF RANGE REFERENCE UNITS LAB L3200.1600 0-100 IU/mL Normal IMMUNO E 28 Result Comment: Performed at: - [facility] [id number] Net Coordinator: Denis Flores MD, Phone: [phone] Performed By: #### L100.0100 #### [facility] [address] [place], [address] #### L3200.1600, L3500.3600 #### [facility] (refer to report for specific site) refer to report for address and phone number ASPERGILLUS ANTIBODIES Collected: 08/30/2017 Status: F Source: [place] 3:28 PM [facility] [place] TYPE CODE TESTS RESULT OUT OF RANGE REFERENCE UNITS LAB L3500.3700 Neg:<1:1 Asp. Normal fumigatus Negative LAB L3500.3800 Neg:<1:1 Asp. Normal flavus Negative LAB L3500.3900 Neg:<1:1 Asp. Normal niger Negative Performed By: #### L100.0100 #### [facility] [address] [place], [address] #### L3200.1600, L3595.5771 #### [facility] (refer to report for specific site) refer to report for address and phone number ALLERGEN, MINI-RAST Collected: 08/30/2017 Status: F Source: [place] 3:28 PM [facility] [place] TYPE CODE TESTS RESULT OUT OF REFERENCE UNITS RANGE LAB L5500.1001 Class 0 kU/L D PTERONYSSINUS Normal <0.10 LAB L5500.1002 Class 0 kU/L D FARINAE MITE Normal <0.10 LAB L5500.2001 Class 0 kU/L CAT HAIR/DANDER Normal <0.10 LAB L5500.2002 Class 0/I kU/L DOG EPITHELIA High 0.22 LAB L5500.4002 Class 0 kU/L [place] Normal <0.10 LAB L5500.4008 Class 0 kU/L [place], [place] Normal <0.10 LAB L5500.5006 Class 0 kU/L A. ALTERNATA Normal <0.10 LAB L5500.6007 Class 0 kU/L [place], [place] Normal <0.10 LAB L5500.6008 Class 0 kU/L [place],AMER WHITE Normal <0.10 LAB L5500.7001 Class 0 kU/L [place] SH/COM Normal <0.10 LAB L5500.7009 Class 0 kU/L [place],ENGLSH Normal <0.10 LAB L5500.7150 Class 0 kU/L Mouse Urine Normal <0.10 Result Comment: Performed at: [address] [id number] Net Coordinator: Denis Flores MD, Phone: [phone] LAB L5635.4379 . Normal RAST COMMENT Comment Result Comment: Levels of Specific IgE Class Description of Class ----- < 0.10 0 Negative 0.10 - 0.31 0/I Equivocal/Low 0.32 - 0.55 I Low 0.56 - 1.40 II Moderate 1.41 - 3.90 III High 3.91 - 19.00 IV Very High 19.01 - 100.00 V Very High >100.00 Very High Performed By: #### L5500.0300 #### [facility] (refer to report for specific site) refer to report for address and phone number PULMONARY VISIT REPORT Observed: 08/09/2017 Status: F Source: [place] 8:49 AM [facility] [place] [facility] [address] [place] [address] OFFICE VISIT Date of Service: 08/06/17 MR#: [id number] Acct: [id number] Name: BETTE ASTORGA Rep #: [id number] : 1945 Provider: Monalisa Lyon Age/Sex: 72/M Location: [facility] [place] Status: Signed Assessment AND Plan 1. 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 classification J44.9 Status Chronic Plan Stable. He does not appear to be an exacerbation of his COPD today. He does not require antibiotics or prednisone. Testing was reviewed. Continue current maintenance medications. It is possible that if he continues to have exacerbations that we could increase his Performomist nebulizer to twice daily, as well as his budesonide by nebulizer twice daily. He has been encouraged to contact the office if he develops any new or worsening symptoms prior to his follow-up in [address] Kessler. Plan Detail Follow Up 6 Months ([facility]) HPI f/u: Chief Complaint: Shortness of breath HPI Comments Details: He denies any fever, chills or body aches. See complete review of systems. This is a 72 year old very pleasant m, currently under the care of Juliano Calabrese MD, here to follow up on moderately severe chronic obstructive pulmonary disease with a OSCAR index score of 2. BETTE reports being treated with antibiotics and prednisone, back in June. The azithromycin was not effective and therefore he had to be treated with Levaquin, which was effective. He has not been treated in the ED/Urgent care for respiratory problems since the last office visit. Current medications consist of performomist once daily by nebulizer, budesonide once daily by nebulizer, and Combivent rescue inhaler which is being used 3-4 times per month. Medication side effects: negative for sore throat, thrush, hoarseness, mouth lesions, or bleeding from nose or mouth. The patient reports compliance with rinsing mouth out after each use. Currently, he is ambulatory and currently on room air. He denies any cough, sputum production or hemoptysis. He does report occasional wheezing and chest tightness, which is completely relieved by the use of his Combivent rescue inhaler. He continues to complain of shortness of breath on exertion, this has not worsened. He has not experienced any fever, chills or body aches. See complete review of systems. COPD checklist: Last PFTs were done on July 30, 2017 FVC is 111 % of predicted FEV1 is 76 % of predicted FEV1/FVC is 50% of predicted Currently smoking 0 PPD Dyspnea 2 Exacerbations in the past 12 months 2 Last 6 min walk July 30, 2017 he was able to ambulate 978 feet over the course of 6 minutes, did desaturate to 90%, did not require supplemental oxygen Nutrition good Mood good Influenza vaccine current Pneumococcal vaccine current Pulmonary Rehab completed, continues to participate in some more activities at home *The GOLD (Global initiative on Obstructive Lung Disease) divides COPD into 4 categories based on the FEV1: I FEV1/FVC <0.7 and FEV1 <80% II FEV1/FVC <0.7 and FEV1 50-80% III FEV1/FVC <0.7 and FEV1 30-50% IV FEV1/FVC <0.7 and FEV1 <30% (or < 50% with respiratory failure) GOLD additionally stratifies patients by disease severity in order to guide therapy: A FEV1 >50% with few symptoms B FEV1 >50% with frequent symptoms C FEV1 <50% with few symptoms D FEV1 <50% with frequent symptoms Variable points on OSCAR Index 0 1 2 3 Fev1 [] % of predicted 65 50-64 36-49 <35 Distance walked in 6 min >[phone] <149 MMRC dyspnea scale* 0-1 2 3 4 BMI >21 <21 OSCAR Index Score 0-2 2% 6% 19% 3-4 2% 8% 32% 4-6 2% 14% 40% 7-10 5% 31% 80% MMR SCALE Grade Degree of breathlessness related to activities 0 Not troubled by breathlessness except on strenuous exercise Intake Vital Signs08/06/17 Height 5 ft 7 in 08/06/17 Weight: 184 lb Intake Visit Reasons: f/u Accompanied by: self Allergies aspirin Allergy (Verified 06/30/15 11:14) Shortness of breath adhesive Adverse Reaction (Verified 10/30/14 11:14) Rash amoxicillin trihydrate [From Augmentin] Adverse Reaction (Verified 10/30/14 11:14) Other atorvastatin calcium [From Lipitor] Adverse Reaction (Verified 10/30/14 11:14) Unknown doxycycline Adverse Reaction (Verified 10/30/14 11:14) Rash metoprolol succinate [From Toprol XL] Adverse Reaction (Verified 10/30/14 11:14) Rash naproxen [From Naprosyn] Adverse Reaction (Verified 10/30/14 11:14) Shortness of breath paroxetine HCl [From Paxil] Adverse Reaction (Verified 10/30/14 11:14) Unknown potassium clavulanate [From Augmentin] Adverse Reaction (Verified 10/30/14 11:14) Unknown propoxyphene HCl [From Darvon] Adverse Reaction (Verified 10/30/14 11:14) Unknown sertraline HCl [From Zoloft] Adverse Reaction (Verified 10/30/14 11:14) Unknown simvastatin [From Zocor] Adverse Reaction (Verified 10/30/14 11:14) Unknown tiotropium bromide [From Spiriva with HandiHaler] Adverse Reaction (Verified 10/30/14 11:14) Other RUBBING ALCOHOL Adverse Reaction (Uncoded 10/30/14 11:14) Rash Medications Clopidogrel Bisulfate [Plavix] 75 mg PO DAILY 02/14/13 [History Confirmed 10/30/14] Diphenoxylate/Atrop [Lomotil] 2 tab PO 4X/DAY PRN PRN 02/14/13 [History Confirmed 10/30/14] Garlic 1 mg PO DAILY 02/14/13 [History Confirmed 10/30/14] Glucosamine/MSM/Chondroitin A [Glucosamine Chondroit MSM Tab] 1 ea PO DAILY 02/14/13 [History Confirmed 10/30/14] Ipratropium 20 - 100 mcg INHALATION Q6H PRN PRN 02/14/13 [History Confirmed 10/30/14] Lorazepam [Ativan] 2 mg PO QHS PRN PRN 02/14/13 [History Confirmed 10/30/14] Nitroglycerin [Nitrostat] 0.4 mg SUBLINGUAL Q5M PRN 02/14/13 [History Confirmed 10/30/14] Piroxicam [Feldene] 10 mg PO DAILY 02/14/13 [History Confirmed 10/30/14] Verapamil HCl [Verelan Pm] 200 mg PO QHS 02/14/13 [History Confirmed 10/30/14] Ipratropium/Albuterol Respimat [Combivent Respimat Inhal [place]] 1 puff INHALATION PRN PRN 10/30/14 [History Confirmed 10/30/14] Melatonin/Pyridoxine HCl (B6) [Melatonin 10 mg Tablet] 1 ea PO DAILY 11/05/14 [History Confirmed 11/05/14] azithromycin 250 mg tablet 250 mg PO QDAY #6 tab 06/09/17 [Rx] prednisone 10 mg tablet 10 mg PO QDAY #30 tab 06/09/17 [Rx] budesonide 0.5 mg/2 mL suspension for nebulization 0.25 mg INHALATION Q12H 06/11/17 [History Confirmed 06/11/17] formoterol fumarate 20 mcg/2 mL solution for nebulization 2 ml INHALATION Q12H 06/11/17 [History Confirmed 06/11/17] [facility] Medical History Short bowel syndrome (Chronic) BPH (benign prostatic hyperplasia) (Chronic) Personal history of other malignant neoplasm of rectum, rectosigmoid junction, and anus (Chronic) Tachycardia (Chronic) 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 classification (Chronic) History of colon cancer (Chronic) COPD (chronic obstructive pulmonary disease) (Chronic) Dyspnea (Acute) Surgical History Status post laparoscopic colectomy (Resolved) history of right eye surgery (Resolved) History of right inguinal hernia repair (Resolved) History of tonsillectomy (Resolved) History of coronary angioplasty (Chronic) Family History Father Heart disease Social History Smoking Status: Former smoker pack-years: 67 second hand exposure: No alcohol intake: never substance use type: does not use caffeine: Yes Type: coffee Number of servings: 4 what type of physical activity do you participate in: other details: pulmonary rehab frequency: 3-4 times per week Review of Systems Const CONSTITUTIONAL: Positive night sweats; negative anorexia, body ache, chills, daytime sleepiness, fever(s), oral thrush, stops breathing during sleep, weight loss, sleeping in chair, fatigue, weight loss, weight gain, frequent colds, seasonal allergies, other, headache(s) or orthopnea EETM Ear Nose Throat Mouth: Positive hearing normal and post nasal drip; negative hard of hearing, hoarseness, dry mouth in morning, change in vision, itchy eyes, eye pain, swallowing Difficulty, ear pain, nose bleed, headache(s), mouth pain, nasal congestion, nasal discharge, sinus pain, sinus pressure, sore throat or other Cardio Cardiovascular: Negative chest pain, chest pain at rest, chest pain with activity, irregular heart rhythm, edema, shortness of breath when lying down, palpitations, murmur or other Resp Respiratory: Positive as per HPI and shortness of breath shortness of breath: Positive with activity; negative pain with cough, wheezing, chest congestion, cough, chest tightness, pain on inspiration, inhalers, increase use of rescue inhalers, snoring, apnea or other Gastro Gastrointestional: Negative bloody stools, change in appetite, difficulty swallowing, reflux, hematemesis, melena stool, loose stool, constipation or other Genitourinary: Negative blood in urine, nocturia, pain with urination or other Musc Musculoskeletal: Negative body pain, back pain, neck pain or other Skin/Breast Skin/Breast: Negative dry skin, itching, rash, unusual bruising, breast lump or other Neuro Neurological: Negative restless legs, confusion, weakness or other Psych Psychocological: Negative abnormal sleep pattern, anxiety, thoughts of hurting self/others, hopelessness or other Lymph Lymphatic: Negative easy bleeding, easy bruising, swollen lymph nodes or other Exam Const Constitutional: Positive conversant, cooperative, in no acute respiratory distress, well developed, well nourished and good hygiene Head Head: Positive normocephalic and atraumatic; negative cyanosis of lips/distal nose Eyes Eye: Positive clear conjunctiva and nystagmus; negative scleral abnormality Ears Ear: Positive hearing normal; negative hard of hearing Nose Nose: Positive external nose normal and septum normal; negative epistaxis Mouth Mouth: Positive post nasal drip, oral mucosae normal, no lesions, good dentition and posterior oropharynx is adequate; negative malodorous breath or oral thrush present Mallampati Score: II: Mallampati Score Neck Neck: Positive normal visual inspection, full ROM and trachea midline; negative lymphadenopathy, JVD or tender Chest Wall Chest: Positive normal inspection of the chest and symmetric chest movement; negative increased A/P diameter Resp lung sounds: Positive clear to auscultation, diminished, normal respiratory effort and prolonged expiratory time; negative wheezes, rhonchi, rales, dullness to percussion or wheeze present on forced exhalation Cardio Cardiac: Positive regular rate, regular rhythm, S1 normal and S2 normal; negative murmur GI GI: Positive normal to inspection and normal bowel sounds; negative distended Genitourinary: Positive deferred Musc Musculoskeletal: Positive steady gait and ROM normal; negative kyphosis or scoliosis Skin Pulmonary Skin Exam: Positive intact; negative rash, lesion, ulcers, erythema, scaly or dermal atrophy Pulses Pulse: Yes pulses normal x4 extremities Extremities Extremities: Yes capillary refill normal, No clubbing, No cyanosis, No edema Neuro Neurologic: Yes conversant, Yes no focal neuro deficits, Yes cooperative, Yes normal cognition, Yes normal coordination, Yes normal concentration, Yes understands questions Lymph Lymphatic: No lymphadenopathy, No tenderness, No cervical adenopathy, No axillary adenopathy Psych Appearance: Positive grossly normal, eye contact and well kempt Mental Status: Positive mental status grossly normal Mood: Positive congruent mood Affect: Positive normal affect Coding Level of Care Code Off vis,est,level 3 Diagnoses 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 classification J44.9 08/09/17 0849 <Electronically signed by Monalisa ROSS> Date Monalisa ROSS Cosigner Signature: Date (if applicable) CC: Juliano Calabrese 6 MINUTE WALK TEST Observed: 07/31/2017 Status: F Source: [place]O 9:21 AM [facility] [place] Pulmonary Services/Neurology [facility] [place] [address] MR#: [id number] Acct: [id number] Name: BETTE ASTORGA Rep #: [id number] : 1945 72 From: Js Arnold DO Referring Dr: Darryn Kessler MD Date: Ordering Dr: Gabrielle: Kelsie Altman Location: PSN PSN 6 Minute Walk Test - 6 Minute Walk Test 6 Minute Walk Test: 6 Minute Walk Test PSN:6-Minute Walk Test Start: 07/30/17 12:18 Freq: Status: Active Protocol: RESP.6MINW Document 07/30/17 11:00 MEK (Rec: 07/30/17 12:21 MEK [id number]) 6 Minute Walk Test Date Performed 07/30/17 Time Performed 11:00 Height 5 ft 7 in Weight: 175 lb Weight in Pounds 175.[address]: Darryn Kessler Assistive device used: None Pre-test Oxygen Delivery Method Room Air Pulse Ox (%) 93 Pulse Rate (60-100 beats/min) 93 Dyspnea Nicole Scale (0-10) 0 Exertion Nicole Scale (6-20) 6 1st minute Oxygen Delivery Method Room Air Pulse Ox (%) 95 Pulse Rate (60-100 beats/min) 97 Number of Rests Taken 0 2nd minute Oxygen Delivery Method Room Air Pulse Ox (%) 90 Pulse Rate (60-100 beats/min) 105 H Number of Rests Taken 0 3rd minute Oxygen Delivery Method Room Air Pulse Ox (%) 90 Pulse Rate (60-100 beats/min) 108 H Number of Rests Taken 0 4th minute Oxygen Delivery Method Room Air Pulse Ox (%) 91 Pulse Rate (60-100 beats/min) 109 H Number of Rests Taken 0 5th minute Oxygen Delivery Method Room Air Pulse Ox (%) 90 Pulse Rate (60-100 beats/min) 111 H Number of Rests Taken 0 6th minute Oxygen Delivery Method Room Air Pulse Ox (%) 91 Pulse Rate (60-100 beats/min) 112 H Number of Rests Taken 0 Post-test Oxygen Delivery Method Room Air Pulse Ox (%) 98 Pulse Rate (60-100 beats/min) 91 Dyspnea Nicole Scale (0-10) 1 Exertion Nicole Scale (6-20) 12 Number of Rests Taken 0 Full Laps Walked 16 Partial Lap, Number of Tiles Walked 34 Total Distance Walked (ft) 978 - Interpretation Interpretation: The patient ambulated 978 feet over the course of 6 minutes beginning on room air without assistive devices or breaks. Pretesting oxygen saturation was noted to be 93% on room air. With ambulation, the anum oxygen saturation was 90%. There was no significant exertional oxygen desaturation. The patient did develop physiologic tachycardia with exertion. - Recommendations Recommendations: There is no indication for the use of supplemental oxygen at this time. 07/31/17920 <Electronically signed by Js Arnold DO> Date Js Arnold DO CC: Date Dictated: 07/31/17919 Date Transcribed: 07/31/17919 Tugboat Operator: Js Arnold DO Signed PULMONARY FUNCTION Observed: 07/30/2017 Status: F Source: [place] TEST 2:43 PM [facility] [place] [facility] Pulmonary Services/Neurology [address] [place] [address] MR#: [id number] Acct: [id number] Name: BETTE ASTORGA Rep #: [id number] : 1945 72 From: Js Arnold DO Referring Dr: Darryn Kessler MD Status: REG CLI Ordering Dr: Date: Location: [facility] Sex: M C INTRODUCTION: The patient is a 72-year-old male currently under the care of Dr. Kessler that presents for pulmonary function testing secondary to a diagnosis of COPD. Respiratory therapy reports good patient effort reports no other concerns. Bronchodilators were used during testing. INTERPRETATION: Forced expiration spirometry demonstrates the presence of a moderate large airways obstructive ventilatory defect. There is no significant response to aerosolized bronchodilators, based upon strict ATS criteria. Spirograms are of good quality and do not plateau indicating slow emptying of the lungs. Body plethysmography was performed and reveals an elevated TLC and RV, indicative of underlying hyperinflation and air-trapping. Diffusing capacity by single breath CO is severely reduced at 32% of predicted. When compared to previous pulmonary function studies dated September 2015 there has been a 25% reduction in the patient's DLCO. IMPRESSION: These pulmonary function studies demonstrate the presence of an irreversible moderate large airways obstructive ventilatory defect with associated hyperinflation, air trapping and worsening diffusing capacity. 07/30/171442 <Electronically signed by Js Arnold DO> Date Js Arnold DO CC: Darryn Kessler MD; Juliano Calabrese Date Dictated: 07/30/171440 Date Transcribed: 07/30/171440 Tugboat Operator: DARY Signed CBC W/DIFF, AUTOMATED Collected: 06/28/2017 Status: F Source: BAO 11:03 AM [facility] [place] TYPE CODE TESTS RESULT OUT OF RANGE REFERENCE UNITS LAB L100.1000 4.4-11.0 K/mm3 Normal WBC 7.9 LAB L100.1200 4.6-6.2 M/mm3 Normal RBC 4.90 LAB L100.1300 13.0-16.5 g/dl Normal HGB 14.7 LAB L100.1400 40-54 % Normal HCT 44.8 LAB L100.1500 80-94 fL Normal MCV 91.4 LAB L100.1600 27.0-32.0 pg Normal MCH 30.0 LAB L100.1700 32-36 g/gl Normal MCHC 32.8 LAB L100.1810 11.6-14.6 % Normal RDW CV 13.9 LAB L100.1820 35.1-43.9 fl High RDW SD 46.0 LAB L100.1900 150-450 K/mm3 Normal PLT 319 LAB L100.2000 6.2-12.0 fl Normal MPV 10.6 LAB L100.2100 47-70 % Normal NEUT% 64.7 LAB L100.2200 19-41 % Low LY% 17.0 LAB L100.2300 0-10 % Normal MONO% 6.2 LAB L100.2400 0-5 % High EO% 11.3 LAB L100.2500 0-1 % Normal BASO% 0.5 LAB L100.2550 0.0-0.9 % Normal IM GRAN % 0.300 Result Comment: IG% - Immature Granulocytes (promyelocytes, myelocytes and metamyelocytes) > 1% indicates that a LEFT SHIFT is Present. LAB L100.2620 2.0-7.7 X10 3/uL Normal Absolute Neut 5.1 LAB L100.2720 0.83-4.51 X10 3/ul Normal Absolute Lymph 1.35 Performed By: #### L100.0100 #### [facility] [address] [place], [place], [address] COMPREHENSIVE METABOLIC Collected: 06/28/2017 Status: F Source: BAO [facility] 11:03 AM [facility] [place] TYPE CODE TESTS RESULT OUT OF RANGE REFERENCE UNITS LAB L501.0100 74-106 mg/dL Normal GLU 101 Result Comment: Fasting Glucose result from 100 to 125 mg/dL suggests IMPAIRED HOMEOSTASIS per A.D.A. criteria. Please note revised GLUCOSE reference range effective 2017. LAB L501.1000 7-18 mg/dL High BUN 24 LAB L501.1100 0.70-1.30 mg/dL Normal CREAT,SERUM 1.13 Result Comment: The validity of the calculated GFR AND GFRAA in patients over 70 years has not been determined. Clinical correlation is essential. LAB L501.1110 >60 mL/min Normal EST GFR 68 Result Comment: Non- GFR Calc LAB L501.1115 >60 mL/min Normal EST GFR - AA 82 Result Comment: GFR Calc LAB L501.1300 10-20 RATIO High BUN/CRE 21.2 LAB L501.1500 6.4-8.2 g/dL T Normal PROT 6.7 LAB L501.1800 3.2-5.0 g/dL Normal ALB 3.5 LAB L501.1950 2.2-4.2 g/dL Normal GLOB 3.2 LAB L501.2000 0.9-2.4 RATIO Normal A/G 1.1 LAB L501.2200 8.5-10.1 mg/dL CA Normal 8.6 LAB L501.4100 15-37 U/L Normal AST 18 LAB L501.4305 45-117 U/L Normal ALK P 80 LAB L501.4405 16-61 U/L Normal ALT 26 Result Comment: Please note revised ALT reference range effective 2017. LAB L501.4600 0.20-1.00 mg/dL Normal T BILI 0.50 LAB L501.5300 136-145 mmol/L Normal NA 141 LAB L501.5600 3.5-5.1 mmol/L Normal K 3.7 LAB L501.5900 98-107 mmol/L High CL 108 LAB L501.6100 21.0-32.0 mmol/L Normal CO2 24.0 LAB L501.6200 5-15 Normal GAP 9 Performed By: #### L500.4050, L501.9520, L506.0400 #### [facility] [address] [place], [address] THYROID STIM HORMONE Collected: 06/28/2017 Status: F Source: BAO (TSH) 11:03 AM [facility] [place] TYPE CODE TESTS RESULT OUT OF RANGE REFERENCE UNITS LAB L501.9520 0.358-3.74 uIU/mL Normal TSH 1.49 Performed By: #### L500.4050, L501.9520, L506.0400 #### [facility] [address] [place], [address] T4 FREE DIRECT Collected: 06/28/2017 Status: F Source: BAO 11:03 AM [facility] [place] TYPE CODE TESTS RESULT OUT OF RANGE REFERENCE UNITS LAB L506.0400 0.76-1.46 ng/dL Normal T4 FREE 1.12 DIRECT Performed By: #### L500.4050, L501.9520, L506.0400 #### [facility] [address] [place], [place], [address] ALLERGIES ALLERGIES DATE TYPE / CODE NAME / CODE REACTION SEVERITY SOURCE Drug propoxyphene Unknown Unknown [facility] 9 Allergy/493032278( HCl/P739112638(RX [facility]) NORM) Hospital Repository Drug amoxicillin Other Unknown [facility] 9 Allergy/435428018( trihydrate/Y71194 [facility] SNOMED CT) 2707(RXNORM) Hospital Repository Drug potassium Unknown Unknown [facility] 9 Allergy/269801399( clavulanate/F0000 [facility] SNOMED CT) 63492(RXNORM) Hospital Repository Drug metoprolol Rash Unknown [facility] 9 Allergy/601374856( succinate/N463346 [facility] SNOMED CT) 628(RXNORM) Hospital Repository Drug sertraline Unknown Unknown [facility] 9 Allergy/945393906( HCl/A165191539(RX [facility]) NORM) Hospital Repository Drug paroxetine Unknown Unknown [facility] 9 Allergy/013730376( HCl/G585784544(RX [facility]) NORM) Hospital Repository Drug atorvastatin Unknown Unknown [facility] 9 Allergy/573294801( calcium/P26830322 [facility]) 2(RXNORM) Hospital Repository Drug tiotropium Other Unknown [facility] 9 Allergy/542710044( bromide/T06623567 [facility]) 3(RXNORM) Hospital Repository Drug aspirin/Q28110118 Shortness of Unknown [facility] Allergy/685804351( 7(RXNORM) breath [facility]) Hospital Repository Drug naproxen/L5189032 Shortness of Unknown [facility] 9 Allergy/046722224( 80(RXNORM) breath [facility]) Hospital Repository Drug doxycycline/F0060 Rash Unknown [facility] 9 Allergy/711437673( 58922(RXNORM) [facility]) Hospital Repository Drug adhesive/Z6279523 Rash Unknown [facility] 9 Allergy/062613715( 45(RXNORM) [facility]) Hospital Repository Drug simvastatin/F0060 Unknown Unknown [facility] 9 Allergy/918231998( 12016(RXNORM) [facility]) Hospital Repository Miscellaneous RUBBING ALCOHOL Rash Unknown [facility] 9 Allergy/175375576( [facility] SN[facility]) Hospital Repository ENCOUNTERS ENCOUNTERS ADMIT/DISCHARGE ACCOUNT ADMITTING ENCOUNTER LOCATION SOURCE NUMBER CLASS 05/19/2018 [id number] Ambulatory [facility] 4 [facility] ing:LABSPEC Repository 05/08/2018/ [id number] Ambulatory BMSBuilding:B [facility] 6 [facility] Repository 01/12/2018/ [id number] Emergency [facility] 8 4 [facility] ing:ED Repository 01/10/2018/ [id number] Ambulatory BMSBuilding:B [facility] 8 9 [facility] Repository 08/30/2017 [id number] Ambulatory [facility] 2 [facility] ing:LAB Repository 08/30/2017/ [id number] Ambulatory BMSBuilding:B [facility] 8 1 [facility] Hospital Repository 08/06/2017/ [id number] Ambulatory BMSBuilding:B [facility] 8 0 [facility] Repository 07/31/2017 [id number] Ambulatory BMSBuilding:W [facility] 2 [facility] Repository 07/30/2017 [id number] Ambulatory [facility] 5 [facility] ing:PSN Repository 07/30/2017 [id number] Ambulatory BMSBuilding:W [facility] 5 [facility] Repository 07/29/2017 [id number] Ambulatory [facility] 6 [facility] ing:PSN Repository 06/28/2017 [id number] Ambulatory [facility] 4 [facility] ing:BFHLAB Repository PAYERS PAYERS ENCOUNTER GUARANTOR PAYER SUBSCRIBER SOURCE 05/19/2018 BETTE E Primary BETTE E [facility] [id number] Insurance:MEDICARE ABBOTTDOB: [facility] [place]EEK PART A BPolicy Number: [id number] [id number] Repository [place] Date:2018-05-19 72346Hgv: () 05/19/2018 Secondary BETTE E [facility] Insurance:HUMANA ABBOTTDOB[facility] [id number] Hospital Number: Repository [id number] Date:9343-50-01VC[address] [address]IR: 05/19/2018 Tertiary NOT GIVENUNK [facility] Insurance:SELF PAY [facility] Number: Effective Repository Date:2018-05-19 05/08/2018 BETTE E Primary BETTE E [facility] [id number] Insurance:MEDICARE ABBOTTDOB: [facility] [place] PART A BPolicy Number: [id number] [id number] Repository [place] Date:2018-05-08 22955Ljg: () 05/08/2018 Secondary BETTE E [facility] Insurance:HUMANA ABBOTTDOB: [facility] [id number] Hospital Number: Repository [id number] Date:0128-56-20ZQ[address] [address]HK: 05/08/2018 Tertiary NOT GIVENUNK [facility] Insurance:SELF PAY [facility] Number: Effective Repository Date:2018-05-08 01/12/2018 BETTE E Primary BETTE E [facility] [id number] Insurance:MEDICARE ABBOTTDOB: Community [place] PART A BPolicy Number: [id number] [id number] Repository [place] Date:2018-01-12 04284Zvc: () 01/12/2018 Secondary BETTE E [facility] Insurance:HUMANA ABBOTTDOB: [facility] [id number] Hospital Number: Repository [id number] Date:3577-33-73EY[address] [address]KA: 01/12/2018 Tertiary NOT GIVENUNK [facility] Insurance:SELF PAY [facility] Number: Effective Repository Date:2018-01-12 01/10/2018 BETTE E Primary BETTE E [facility] [id number] Insurance:MEDICARE ABBOTTDOB: Community [place] PART A olicy Number: [id number] [id number] Repository [place] Date:2017-08-06 58675Ikj: () 01/10/2018 Secondary BETTE E [facility] Insurance:HUMANA ABBOTTDOB: [facility] [id number] Hospital Number: Repository [id number] Date:0552-24-01PO[address] [address]UW: 01/10/2018 Tertiary NOT GIVENUNK [facility] Insurance:SELF PAY [facility] Number: Effective Repository Date:2017-12-31 08/30/2017 BETTE E Primary BETTE E [facility] [id number] Insurance:MEDICARE ABBOTTDOB: Community [place] PART A olicy Number: [id number] [id number] Repository [place] Date:2017-08-30 723[address]Nuo: () 08/30/2017 Secondary BETTE E [facility] Insurance:HUMANA ABBOTTDOB: [facility] [id number] Hospital Number: Repository [id number] Date:9168-89-28ZJ [address] [address]BA: 08/30/2017 Tertiary NOT GIVENUNK [facility] Insurance:SELF PAY [facility] Number: Effective Repository Date:2017-08-30 08/30/2017 BETTE E Primary BETTE E [facility] [id number] Insurance:MEDICARE ABBOTTDOB: Community [place] PART A BPolicy Number: [id number] [id number] Repository [place] Date:2017-08-30 91821Ipw: () 08/30/2017 Secondary BETTE E [facility] Insurance:HUMANA ABBOTTDOB: [facility] [id number] Number: Repository [id number] Date:6809-45-80QG[address] [address]CW: 08/30/2017 Tertiary NOT GIVENUNK [facility] Insurance:SELF PAY [facility] Number: Effective Repository Date:2017-08-30 08/06/2017 BETTE E Primary BETTE E [facility] [id number] Insurance:MEDICARE ABBOTTDOB: [facility] [place] PART A olicy Number: [id number] [id number] Repository [place] Date:2017-06-29 84746Ppk: () 08/06/2017 Secondary BETTE E [facility] Insurance:HUMANA ABBOTTDOB: [place] [id number] Hospital Number: Repository [id number] Date:0603-70-07ID [address] [place] [address]MM: 08/06/2017 Tertiary NOT GIVENUNK [facility] Insurance:SELF PAY [facility] Number: Effective Repository Date:2017-08-04 07/31/2017 BETTE E Primary BETTE E [facility] [id number] Insurance:MEDICARE ABBOTTDOB: Community [place] PART A olicy Number: [id number] [id number] Repository [place] Date:2016-12-16 732[address]Gzp: () 07/31/2017 Secondary BETTE E [facility] Insurance:HUMANA ABBOTTDOB: [facility] [id number] Hospital Number: Repository [id number] Date:5312-95-74GH[address] [address]TF: 07/31/2017 Tertiary NOT GIVENUNK [facility] Insurance:SELF PAY [facility] Number: Effective Repository Date:2017-07-31 07/30/2017 BETTE E Primary BETTE E [facility] [id number] Insurance:MEDICARE ABBOTTDOB: Community [place] PART A BPolicy Number: [id number] [place] [address] [id number] Repository [place] Date:2016-12-16 15082Orz: () 07/30/2017 Secondary BETTE E [facility] Insurance:HUMANA ABBOTTDOB: [facility] [id number] Hospital Number: Repository [id number] Date:1079-04-04UB[address] [address]SI: 07/30/2017 Tertiary NOT GIVENUNK [facility] Insurance:SELF PAY [facility] Number: Effective Repository Date:2016-12-16 07/30/2017 BETTE E Primary BETTE E [facility] [id number] Insurance:MEDICARE ABBOTTDOB: Community [place] PART A olicy Number: [id number] [facility] [id number] Repository [place] Date:2016-12-16 95489Sgj: () 07/30/2017 Secondary BETTE E [facility] Insurance:HUMANA ABBOTTDOB: [facility] [id number] Hospital Number: Repository [id number] Date:9910-07-22[address] [place] [address]YR: 07/30/2017 Tertiary NOT GIVENUNK [facility] Insurance:SELF PAY [facility] Number: Effective Repository Date:2017-07-30 07/29/2017 Bette E Primary Bette E [facility] [id number] Insurance:MEDICARE AbbottDOB: Community [place] PART A BPolicy Number: [id number] [facility] [id number] Repository [place] Date:2016-12-16 24175Hfw: () 07/29/2017 Secondary Bette E [facility] Insurance:HUMANA AbbottDOB: [facility] [id number] Hospital Number: Repository [id number] Date:5792-82-56PN[address] [address]RB: 07/29/2017 Tertiary NOT GIVENUNK [facility] Insurance:SELF PAY [facility] Number: Effective Repository Date:2016-12-16 06/28/2017 Bette E Primary Bette E [facility] [id number] Insurance:MEDICARE AbbottDOB: Community [place] PART A BPolicy Number: [id number] [facility] [id number] Repository [place] Date:2017-06-28 41736Wen: () 06/28/2017 Secondary Bette E [facility] Insurance:HUMANA AbbottDOB: [facility] [id number] Hospital Number: Repository [id number] Date:7616-42-02XK[address] [address]RH: 06/28/2017 Tertiary NOT GIVENUNK [facility] Insurance:SELF PAY [facility] Number: Effective Repository Date:2017-06-28
== END ==
PROVIDERS: Family Provider Family Medicine; PCP Family Medicine; Referring Provider Nurse Practitioner Acute Care; Visit Provider Nurse Practitioner Acute Care
DX: J47.9 Bronchiectasis, uncomplicated (principal)
CPT/HCPCS: 87070; 87205

== ENCOUNTER → 2018-07-12 13:47 | Outpatient (CLI) | payer MEDICARE, OTHER, SELFPAY ==
[2018-07-04 12:46] VITALS: BMI 26.9
[2018-07-12 15:31] LABS: Absolute Lymphocyte Count 1.09 X10^3/ul (0.83-4.51); Absolute Neutrophil Count 5.8 X10^3/uL (2.0-7.7); Basophil# 0.06 X10^3/uL; Basophil% 0.7 % (0-1); Eosinophil# 1.15 X10^3/uL; Eosinophils% 13.4 % (0-5); Hematocrit 44.9 % (40-54); Hemoglobin 14.9 g/dl (13.0-16.5); Lymphocyte # 1.09 X10^3/ul (4.0); Lymphocyte % 12.7 % (19-41); Mean Corp Hgb Conc 33.2 g/gl (32-36); Mean Corpuscular Hgb 29.5 pg (27.0-32.0); Mean Corpuscular Volume 88.9 fL (80-94); Mean Platelet Vol. 11.2 fl (6.2-12.0); Monocyte# 0.49 X10^3/uL; Monocyte% 5.7 % (0-10); Neutrophil # 5.81 X10^3/uL (2.7-7.7); Neutrophil % 67.4 % (47-70); Platelet Count 277 K/mm3 (150-450); RBC Distribution Width SD 49.2 fl (35.1-43.9); Red Blood Count 5.05 M/mm3 (4.6-6.2); White Blood Count 8.6 K/mm3 (4.4-11.0)
[2018-07-12 16:03] LABS: Hemoglobin A1c 5.5 % (4.2-6.3)
[2018-07-12 16:07] LABS: ALB/GLOB Ratio 1.2 RATIO (0.9-2.4); AST(SGOT) 14 U/L (15-37); Alanine Aminotransfer ALT/SGPT 23 U/L (16-61); Albumin, Serum 3.7 g/dL (3.2-5.0); Alkaline Phosphatase 87 U/L (45-117); Anion Gap 10 (5-15); BUN 22 mg/dL (7-18); BUN/Creat Ratio 15.7 RATIO (10-20); Calcium,Total 9.2 mg/dL (8.5-10.1); Chloride 107 mmol/L (98-107); EST Glomerular Filtration Rate 53 mL/min (>60); Est Glom Filt Rate - Afr Amer 64 mL/min (>60); Glucose 106 mg/dL (74-106); Potassium 3.6 mmol/L (3.5-5.1); Protein, Total 6.7 g/dL (6.4-8.2); Sodium Level 143 mmol/L (136-145); Thyroid Stim Hormone (TSH) 1.61 uIU/mL (0.358-3.74)
[2018-07-12 16:09] LABS: POSITIVE COUNT NO; POSITIVE DIFFERENTIAL NO; POSITIVE MORPHOLOGY NO
== END ==
PROVIDERS: Family Provider Family Medicine; PCP Family Medicine; Visit Provider Family Medicine
DX: I10 Essential (primary) hypertension (principal); R73.01 Impaired fasting glucose
CPT/HCPCS: 36415; 80053; 83036; 84443; 85025

== ENCOUNTER → 2018-07-13 10:00 | Outpatient (CLI) | payer MEDICARE, OTHER, SELFPAY ==
[2018-07-04 12:46] VITALS: BMI 26.9
== END ==
PROVIDERS: Family Provider Family Medicine; PCP Family Medicine; Referring Provider Nurse Practitioner Acute Care; Visit Provider Nurse Practitioner Acute Care
DX: J44.9 Chronic obstructive pulmonary disease, unspecified (principal)
CPT/HCPCS: 94762

== ENCOUNTER → 2019-01-03 10:37 | Outpatient (CLI) | payer MEDICARE, OTHER, SELFPAY ==
[2018-07-04 12:46] VITALS: BMI 26.9
--- NOTE | 2019-01-03 13:42 | PFTCOMP ---
COMPLETE PULMONARY FUNCTION TEST INTERPRETATION Brief HPI: Patient is a 73 year old male, currently under the care of myself, who presents to [facility] for complete pulmonary function tests secondary to diagnosis of COPD. Respiratory therapist reports good effort and reproducible results. Interpretation: Forced expiration spirometry shows a mild large airways obstructive ventilatory defect with an FEV1 of 70% predicted. There is a significant bronchodilator response in FEV1 by strict ATS criteria. Spirograms are of good quality and plateau slowly, indicating slowly emptying areas of the lungs. The respiratory flow volume loop shows decreased expiratory flow rates at all lung volumes consistent with airway obstruction. Lung volumes by body plethysmography show an elevated total lung capacity at 7.55 L, 132% predicted. All other lung volumes are increased symmetrically. Diffusion capacity by carbon monoxide is decreased at 43% predicted. The airway resistance is elevated. Compared to previous pulmonary function tests from 07/29/2017, there is been a significant decrease in FEV1 by 14% and improvement in DLCO by 29%. Impression: Partially reversible mild large airways obstructive ventilatory defect resulting in hyperinflation and a symmetric reduction diffusion capacity. There has been significant change compared to 2018.
== END ==
PROVIDERS: Family Provider Family Medicine; PCP Family Medicine; Referring Provider Nurse Practitioner Acute Care; Visit Provider Nurse Practitioner Acute Care
DX: J44.9 Chronic obstructive pulmonary disease, unspecified (principal)
CPT/HCPCS: 94060; 94726; 94729

== ENCOUNTER 2019-04-10 13:42 | Emergency (ER) | payer MEDICARE, OTHER, SELFPAY ==
[2019-01-10 11:48] VITALS: BMI 26.9
[2019-04-10 13:47] VITALS: BP 165/100; PULSE 97; RESP 24; TEMP 36.4; O2SAT 92; BMI 25.8
--- NOTE | 2019-04-10 14:17 | VDLE_ITS ---
Reason For Study: LLE SWELLING RIGHT LEFT CFV is compressible, spontaneous, phasic, GSV is normal. competent and demonstrates normal CFV is compressible, spontaneous, phasic, augmentation. competent, and demonstrates normal Procedure augmentation. Exam performed portable in ED. FV is compressible, spontaneous, phasic, The exam was diagnostic. competent and demonstrates normal A preliminary report was called and/or faxed augmentation. to DR. Marianna Oropeza @ 2:40 pm. POP V is compressible, spontaneous, phasic, competent and demonstrates normal augmentation. T/P Trunk is compressible. PTV is compressible. LT PerV is compressible. Interpretation Summary Deep veins of the left lower extremity are patent and compressible segmentally. There is no evidence of left lower extremity deep vein thrombosis. Valvular competence appears intact within the proximal deep venous system on the left . The left great saphenous vein appears patent and compressible segmentally. Ordering Physician: Thomas Oropeza Referring Physician: Juliano Calabrese Performed By: Gisela Jones, DAISY, RVT
--- NOTE | 2019-04-10 14:20 | ED.VISSUMM ---
- ER Visit Summary Date of Service: 04/10/19 Chief Complaint: Swelling to his left hand after thumb surgery. Also swelling in his left leg postoperatively. History of Present Illness: The patient is a 73 M 3 of COPD, CAD, ID, stents. Patient also had colon cancer 2007 with a partial colectomy. Patient underwent a left thumb surgery by Dr. Bryce Saldivar in [place] on Wednesday. Patient states he was doing well. His hand felt swollen today and his dressing felt too tight he called our office a sentiment. He also states incidentally that he is noticed swelling in his left leg the last several days. Currently denies any chest pain or shortness of breath. No hemoptysis. No pleuritic pain. Physical Examination: Older male no acute distress. Vital signs are stable afebrile. Pulse ox 92% on room air no signs of hypoxia. No distress. HEENT exam unremarkable. Neck nontender. Lungs clear to auscultation bilaterally. Heart regular rhythm rate about 90 no murmur. Chest were nontender. Abdomen soft nontender. Patient moving all 4 extremities. Neurovascular intact. His left leg has mild swelling. Is asymmetrical compared to the right. Right leg is no swelling at all. The left calf is nontender. No cords. He has normal range of motion of both lower extremities. Normal dorsi plantarflexion. No cellulitis. His left upper extremity was in a short arm splint I removed that. He really has minimal swelling of his hand and forearm. There is minimal bruising. He is a well-healing incision. He also has an orthopedic pin in place. Again no signs of infection. No cellulitis. He is a palpable radial pulse. He has normal cap refill to all digits of his hand. Normal touch sensation. No signs of a compartment syndrome. Left hand is neurovascular intact. Normal postop swelling. Test Results: Noninvasive study of his left lower extremity shows no DVT. Emergency Department Course and Treatment: I took up the patient's dressing his left hand from the surgery appears to be healing nicely. There is no signs of infection. There is only mild swelling and minimal bruising. There is no bleeding or discharge. No cellulitis. The proximal forearm is nontender. There is no axillary lymphadenopathy. I will place a new dressing on his left hand. He was instructed to ice and elevate it. Exam patient is doing well at 1500. [address] place a new well-padded dressing on his left upper extremity. Instructed him to help take care of the wound and ice and elevate. And he will follow-up with his orthopedic surgeon. Currently has no complaints whatsoever. Treatment Plan: Ice and elevate his left hand. Follow-up with his orthopedic physician Dr. Saldivar. Disposition: Discharge Impression: Status post left hand surgery with normal postop swelling Acute left leg swelling of uncertain etiology (no DVT) This note was generated with [employer] dictation software. It may contain incorrect words, spelling, and punctuation that were not noted in review of the chart prior to signing ED Disposition - Plan for ED Patient: Referrals: Juliano Calabrese MD [Primary Care Provider] -
--- NOTE | 2019-04-10 15:03 | ED.DEP ---
ED Disposition - Plan for ED Patient: Disposition: Home or Assisted Living Referrals: Barney Saldivar MD [STAFF PHYSICIAN] - Additional Instructions: Ice and elevate your left hand to decrease pain and swelling. This should progressively improve. Keep the splint dry and clean. Follow-up with Dr. Barney Saldivar for reevaluation of your hand as scheduled. There was no blood clot in your left leg on ultrasound. This should progressively resolve the swelling if not it will need further evaluation.
[2019-04-10 15:13] VITALS: O2SAT 93
== END 2019-04-10 15:14 | disposition home or self-care (01) ==
PROVIDERS: Emergency Provider Emergency Medicine; Family Provider Family Medicine; PCP Family Medicine
DX: M79.89 Other specified soft tissue disorders (principal); I25.10 Atherosclerotic heart disease of native coronary artery without angina pectoris; I25.2 Old myocardial infarction; J44.9 Chronic obstructive pulmonary disease, unspecified; Z95.5 Presence of coronary angioplasty implant and graft; Z85.038 Personal history of other malignant neoplasm of large intestine
CPT/HCPCS: 93971; 99285

== ENCOUNTER 2019-06-29 14:11 | Inpatient (IN) | payer MEDICARE, OTHER, SELFPAY ==
[2019-06-29] VITALS (14 sets, daily range): BP systolic 156–175; BP diastolic 79–114; PULSE 87–912; RESP 16–20; TEMP 36.1–36.8; O2SAT 93–96; BMI 26.6
--- NOTE | 2019-06-29 14:24 | EKG12_ITS ---
Test Reason : SOB Blood Pressure : / mmHG Vent. Rate : 089 BPM Atrial Rate : 089 BPM P-R Int : 160 ms QRS Dur : 088 ms QT Int : 360 ms P-R-T Axes : 061 -26 070 degrees QTc Int : 438 ms Normal sinus rhythm Normal ECG Confirmed by PREMA RODRIGUEZ, BENEDICT ([id number]), video editor CHELSEA HASSAN ([id number]) on 07/03/2019 8:51:51 AM Referred By: DAVID Confirmed By:CHASTITY LLOYD MD
[2019-06-29] MEDS: Ipratropium/Albuterol Sulfate 3 ML AMPUL.NEB INHALATION (14:39)
[2019-06-29 14:53] LABS: Absolute Lymphocyte Count 0.34 X10^3/uL (0.83-4.51); Absolute Neutrophil Count 10.2 X10^3/uL (2.0-7.7); Basophil# 0.03 X10^3/uL; Basophil% 0.3 % (0-1); Eosinophils% 1.8 % (0-5); Hematocrit 42.4 % (40-54); Hemoglobin 13.9 g/dL (13.0-16.5); Lymphocyte # 0.34 X10^3/ul (4.0); Mean Corp Hgb Conc 32.8 g/dL (32-36); Mean Corpuscular Hgb 29.3 pg (27.0-32.0); Mean Corpuscular Volume 89.5 fL (80-94); Mean Platelet Vol. 10.2 fl (6.2-12.0); Monocyte# 0.36 X10^3/uL; Monocyte% 3.2 % (0-10); NRBC Flagged by Analyzer 0 % (0-5); Neutrophil # 10.24 X10^3/uL (2.7-7.7); Neutrophil % 91.1 % (47-70); POSITIVE DIFFERENTIAL YES; Platelet Count 380 K/mm3 (150-450); RBC Distribution Width CV 13.6 % (11.6-14.6); RBC Distribution Width SD 44.6 fl (35.1-43.9); Red Blood Count 4.74 M/mm3 (4.6-6.2); White Blood Count 11.2 K/mm3 (4.4-11.0)
[2019-06-29 14:56] LABS: Differential Indicated SCAN CRITERIA MET
--- NOTE | 2019-06-29 14:58 | RAD_ITS ---
EXAM DESCRIPTION: PA and lateral chest CLINICAL HISTORY: 74 years Male, Dyspnea Dyspnea COMPARISON: Previous chest obtained on 09/26/2014, previous chest obtained on 02/14/2013 FINDINGS: The thorax is intact. The heart and mediastinum appear to be within normal limits. Interstitial infiltrates are seen in the lung bases bilaterally which were previously identified and not significantly changed and most likely represent interstitial fibrosis. Interstitial fibrosis is also seen in peripheral portion of the right upper lobe. Relative radiolucent area is seen in the left upper lobe probably representing centrilobular emphysema. The overall appearance of the chest has not significantly changed when compared with the previous chest CT obtained on 09/26/2014 RAD/Chest PA and Lateral IMPRESSION: Interstitial fibrosis is again identified in both lungs slightly more pronounced on the right. The overall appearance of the chest is unchanged. Electronically Signed: Cody Reza, at 15:41 EST Tel , Service support ,
[2019-06-29 15:06] LABS: Anion Gap 6 (5-15); BUN 29 mg/dL (7-18); BUN/Creat Ratio 22.7 RATIO (10-20); Calcium,Total 9.7 mg/dL (8.5-10.1); Chloride 109 mmol/L (98-107); Creatinine, Serum 1.28 mg/dL (0.70-1.30); EST Glomerular Filtration Rate 58 mL/min (>60); Est Glom Filt Rate - Afr Amer 70 mL/min (>60); Estimated Creatinine Clearance 46.62 ml/min; Glucose 113 mg/dL (74-106); Potassium 3.6 mmol/L (3.5-5.1); Sodium Level 142 mmol/L (136-145)
[2019-06-29 15:11] LABS: Differential Comment SCANNED
[2019-06-29] MEDS: 0.9% Normal Saline 1,000 ML 150 ML IV (15:22)
[2019-06-29] MEDS: MethylPREDNISolone 125 MG/2 ML Vial IV (15:22)
--- NOTE | 2019-06-29 15:27 | HP.PCM_ITS ---
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) BPH (benign prostatic hyperplasia) (Chronic) Personal history of other malignant neoplasm of rectum, rectosigmoid junction, and anus (Chronic) Tachycardia (Chronic) 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 classification (Chronic) FEV1 70% of predicted History of colon cancer (Chronic) History of coronary angioplasty (Chronic) COPD (chronic obstructive pulmonary disease) (Chronic) Medical History: Medical History (Last Reviewed 06/14/19 @ 07:52 by Monalisa Lyon NP-C) Short bowel syndrome (Chronic) K91.2 BPH (benign prostatic hyperplasia) (Chronic) N40.0 Personal history of other malignant neoplasm of rectum, rectosigmoid junction, and anus (Chronic) Z85.048 Tachycardia (Chronic) R00.0 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 FEV1 70% of predicted History of colon cancer (Chronic) Z85.038 COPD (chronic obstructive pulmonary disease) (Chronic) J44.9 Dyspnea (Acute) R06.00 Allergies aspirin Allergy (Verified 06/29/19 14:18) Shortness of breath adhesive Adverse Reaction (Verified 06/29/19 14:18) Rash amoxicillin trihydrate [From Augmentin] Adverse Reaction (Verified 06/29/19 14:18) Other TINGLING ALL OVER atorvastatin calcium [From Lipitor] Adverse Reaction (Verified 06/29/19 14:18) Unknown metoprolol succinate [From Toprol XL] Adverse Reaction (Verified 06/29/19 14:18) Rash naproxen [From Naprosyn] Adverse Reaction (Verified 06/29/19 14:18) Shortness of breath paroxetine HCl [From Paxil] Adverse Reaction (Verified 06/29/19 14:18) Unknown potassium clavulanate [From Augmentin] Adverse Reaction (Verified 06/29/19 14:18) Unknown propoxyphene HCl [From Darvon] Adverse Reaction (Verified 06/29/19 14:18) Unknown sertraline HCl [From Zoloft] Adverse Reaction (Verified 06/29/19 14:18) Unknown simvastatin [From Zocor] Adverse Reaction (Verified 06/29/19 14:18) Unknown tiotropium bromide [From Spiriva with HandiHaler] Adverse Reaction (Verified 06/29/19 14:18) Other SHORT TEMPER RUBBING ALCOHOL Adverse Reaction (Uncoded 06/29/19 14:18) Rash Home Medications: Ambulatory Orders Medication Instructions Recorded Clopidogrel Bisulfate [Plavix] 75 mg PO DAILY 02/14/13 Glucosamine/MSM/Chondroitin A 1 tab PO DAILY 02/14/13 [Glucosamine Chondroit MSM Tab] Piroxicam [Feldene] 10 mg PO DAILY 02/14/13 Ipratropium/Albuterol Respimat 1 puff INHALATION PRN PRN 10/30/14 [Combivent Respimat Inhal [place]] Budesonide 0.25 mg INHALATION Q12H 06/29/19 Cholecalciferol (Vitamin D3) 2,000 unit PO DAILY 06/29/19 [Vitamin D3] Formoterol Fumarate [Perforomist] 2 ml INHALATION Q12H 06/29/19 Garlic 1,000 mg PO DAILY 06/29/19 Lorazepam [Ativan] 1.5 mg PO QHS 06/29/19 Tamsulosin HCl 0.4 mg PO QHS 06/29/19 Verapamil HCl [Verapamil ER] 120 mg PO QHS 06/29/19 Surgical History: Surgical History (Last Reviewed 06/14/19 @ 07:52 by Monalisa Lyon NP-C) Status post laparoscopic colectomy (Resolved) Z90.49 history of right eye surgery (Resolved) History of right inguinal hernia repair (Resolved) Z98.890, Z87.19 History of tonsillectomy (Resolved) Z98.890, Z90.89 History of coronary angioplasty (Chronic) Z98.61 Surgical History: angioplasty, colectomy Smoking Status: Former smoker - Physical Exam Vitals/I&O's: Vital Signs Temp Pulse Resp BP Pulse Ox 97 F L 87 16 174/106 H 94 06/29/19 15:23 06/29/19 15:23 06/29/19 15:23 06/29/19 15:23 06/29/19 15:23 Oxygen Delivery Method Room Air Weight: 170 lb Body Mass Index (BMI) 26.6 Microbiology Past 72 Hours 06/29/19 14:40 Mucosa - Nose Influenza Types A,B Direct FA (WINTER) - Final Influenzae A Laboratory Results 06/29/19 14:40: WBC 11.2 H, RBC 4.74, Hgb 13.9, Hct 42.4, MCV 89.5, MCH 29.3, MCHC 32.8, RDW Std Deviation 44.6 H, RDW Coeff of Kylee 13.6, Plt Count 380, MPV 10.2, Immature Gran % (Auto) 0.600, Neut % (Auto) 91.1 H, Lymph % (Auto) 3.0 L, Beckham % (Auto) 3.2, Eos % (Auto) 1.8, Baso % (Auto) 0.3, Absolute Neuts (auto) 10.2 H, Absolute Lymphs (auto) 0.34 L, Nucleated RBC % 0, Differential Comment SCANNED 06/29/19 14:40: Sodium 142, Potassium 3.6, Chloride 109 H, Carbon Dioxide 27.0, Anion Gap 6, BUN 29 H, Creatinine 1.28, Estim Creat Clear Calc 46.62, Est GFR (MDRD) Af Amer 70, Est GFR (MDRD) Non-Af 58 L, BUN/Creatinine Ratio 22.7 H, Glucose 113 H, Calcium 9.7, Troponin I < 0.015 Current Medications Albuterol Sulfate (Ventolin Aerosols) 2.5 mg INHALATION Q5M RAJ Stop: 06/29/19 15:36 Sodium Chloride () 1,000 mls @ 150 mls/hr IV .Q6H40M ONE Stop: 06/29/19 21:03 Last Admin: 06/29/19 15:22 Dose: 150 mls/hr Documented by: Levofloxacin (Levaquin Iv) 750 mg in 150 mls @ 100 mls/hr IV X1 ONE Stop: 06/29/19 16:47 Assessment/Plan All Active Problems (Last Reviewed 06/14/19 @ 07:52 by KAI SchwartzC) Asthma (Acute) Status post laparoscopic colectomy (Resolved) history of right eye surgery (Resolved) History of right inguinal hernia repair (Resolved) History of tonsillectomy (Resolved) Dyspnea (Acute)
[2019-06-29] MEDS: levoFLOXacin IV 750 MG/150 ML BAG 100 MG IV (15:44)
--- NOTE | 2019-06-29 15:48 | ED.DCSUM_ITS ---
- ER Visit Summary Date of Service: 06/29/19 Chief Complaint: [Shortness of breath] History of Present Illness: The patient is a 74 M [presents the emergency department via EMS for complaint of shortness of breath that started about 5 days ago. Patient has history of COPD as well as asthma. Patient has history of coronary artery disease. He denies any chest pain. Patient states that he is had a runny nose and cough with some green sputum production. He was seen by his primary care physician 3 days ago and started on doxycycline and prednisone. Patient states that he continues to be dyspneic at rest as well as with ambulating and states with walking at home his pulse ox drops into the mid 80s. Patient is on home O2 but just at night he states. 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 Cranial nerves II through XII grossly intact. TMs clear. Mucous membranes moist. No adenopathy. Cardiovascular-regular rate and rhythm without murmur or ectopy Lungs-diminished breath sounds bilaterally. Patient has expiratory wheezes. Patient is tachypneic. No accessory muscle use or retractions. Abdomen-normoactive bowel sounds, soft, nontender, no rebound or rigidity, no peritoneal signs. Extremities-intact ?4, normal range of motion, normal pulses, atraumatic] Test Results: [EKG obtained arrival shows sinus rhythm with a ventricular rate of 89 bpm with no acute ST segment changes. CBC with a ferritin of 811.2, hemoglobin 14, hematocrit 42, platelet 380. Chemistries unremarkable. Troponin was less than 0.15. Influenza was positive for influenza A. Chest x-ray showed interstitial fibrosis otherwise nothing acute] Emergency Department Course and Treatment: [Patient was given DuoNeb aerosol and Solu-Medrol 125 mg IV. Patient was ordered several more albuterol aerosols.] Patient was ordered Levaquin 750 mg IV. Patient started on Tamiflu 75 mg p.o. Treatment Plan: [Admit] Disposition: [Admit] Impression: [COPD exacerbation-failed outpatient therapy Influenza] This note was generated with [employer] software. It may contain incorrect words, spelling, and punctuation that were not noted in review of the chart prior to signing ED Disposition - Plan for ED Patient: Referrals: Juliano Calaberse MD [Primary Care Provider] -
[2019-06-29] MEDS: Oseltamivir Phosphate 75 MG Capsule PO (16:07)
[2019-06-29] MEDS: Albuterol 2.5 MG/3 ML VIAL.NEB. INHALATION ×3 (16:14→19:02)
--- NOTE | 2019-06-29 16:39 | PCM.HP.STD ---
Problem List (1) Hypoxia Status: Chronic Comment: 2 L nasal cannula oxygen with sleep (2) Bronchiectasis Status: Suspected Qualifiers: Bronchiectasis type: uncomplicated Qualified Code(s): J47.9 - Bronchiectasis, uncomplicated (3) Allergy to dog dander Status: Chronic (4) Asthma Status: Chronic Qualifiers: Asthma severity: moderate Asthma persistence: persistent Asthma complication type: uncomplicated Qualified Code(s): J45.40 - Moderate persistent asthma, uncomplicated (5) Status post laparoscopic colectomy Status: Resolved (6) history of right eye surgery Status: Resolved (7) History of right inguinal hernia repair Status: Resolved (8) History of tonsillectomy Status: Resolved (9) Short bowel syndrome Status: Chronic (10) BPH (benign prostatic hyperplasia) Status: Chronic (11) Personal history of other malignant neoplasm of rectum, rectosigmoid junction, and anus Status: Chronic (12) Tachycardia Status: Chronic (13) 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 classification Status: Chronic Comment: FEV1 70% of predicted (14) History of colon cancer Status: Chronic (15) History of coronary angioplasty Status: Chronic (16) COPD (chronic obstructive pulmonary disease) Status: Chronic History of Present Illness Date of Admission: 06/29/19 Chief Complaint: Shortness of breath. The patient is a 74 year old M who presents emergency room due to increased shortness of breath and general malaise. Patient reports his symptoms began on Wednesday with increased shortness of breath, cough productive of yellow/green sputum. He reports intermittent fever, chills. Patient states his primary care provider started him on prednisone and doxycycline 3 days ago with no improvement. He also called his pulmonology office, Dr. Kessler who referred him to ER for further evaluation. He denies chest pain. Patient reports he wears supplemental oxygen at bedtime and as needed. He has not required increased supplemental oxygen. Patient reports he rents out his basement and renters have been sick recently. He has a past medical history of CAD status post stents, BPH, hypertension, COPD with chronic hypoxic respiratory failure, moderate persistent asthma and bronchiectasis. 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 (Chronic) Asthma (Chronic) Short bowel syndrome (Chronic) BPH (benign prostatic hyperplasia) (Chronic) Personal history of other malignant neoplasm of rectum, rectosigmoid junction, and anus (Chronic) Tachycardia (Chronic) 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 classification (Chronic) FEV1 70% of predicted History of colon cancer (Chronic) History of coronary angioplasty (Chronic) COPD (chronic obstructive pulmonary disease) (Chronic) Medical History: Medical History (Last Reviewed 06/14/19 @ 07:52 by Monalisa Lyon NP-C) Short bowel syndrome (Chronic) K91.2 BPH (benign prostatic hyperplasia) (Chronic) N40.0 Personal history of other malignant neoplasm of rectum, rectosigmoid junction, and anus (Chronic) Z85.048 Tachycardia (Chronic) R00.0 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 FEV1 70% of predicted History of colon cancer (Chronic) Z85.038 COPD (chronic obstructive pulmonary disease) (Chronic) J44.9 Dyspnea (Acute) R06.00 Allergies aspirin Allergy (Verified 06/29/19 14:18) Shortness of breath adhesive Adverse Reaction (Verified 06/29/19 14:18) Rash amoxicillin trihydrate [From Augmentin] Adverse Reaction (Verified 06/29/19 14:18) Other TINGLING ALL OVER atorvastatin calcium [From Lipitor] Adverse Reaction (Verified 06/29/19 14:18) Unknown metoprolol succinate [From Toprol XL] Adverse Reaction (Verified 06/29/19 14:18) Rash naproxen [From Naprosyn] Adverse Reaction (Verified 06/29/19 14:18) Shortness of breath paroxetine HCl [From Paxil] Adverse Reaction (Verified 06/29/19 14:18) Unknown potassium clavulanate [From Augmentin] Adverse Reaction (Verified 06/29/19 14:18) Unknown propoxyphene HCl [From Darvon] Adverse Reaction (Verified 06/29/19 14:18) Unknown sertraline HCl [From Zoloft] Adverse Reaction (Verified 06/29/19 14:18) Unknown simvastatin [From Zocor] Adverse Reaction (Verified 06/29/19 14:18) Unknown tiotropium bromide [From Spiriva with HandiHaler] Adverse Reaction (Verified 06/29/19 14:18) Other SHORT TEMPER RUBBING ALCOHOL Adverse Reaction (Uncoded 06/29/19 14:18) Rash Home Medications: Ambulatory Orders Medication Instructions Recorded Clopidogrel Bisulfate [Plavix] 75 mg PO DAILY 02/14/13 Glucosamine/MSM/Chondroitin A 1 tab PO DAILY 02/14/13 [Glucosamine Chondroit MSM Tab] Piroxicam [Feldene] 10 mg PO DAILY 02/14/13 Ipratropium/Albuterol Respimat 1 puff INHALATION PRN PRN 10/30/14 [Combivent Respimat Inhal [place]] Budesonide 0.25 mg INHALATION Q12H 06/29/19 Cholecalciferol (Vitamin D3) 2,000 unit PO DAILY 06/29/19 [Vitamin D3] Formoterol Fumarate [Perforomist] 2 ml INHALATION Q12H 06/29/19 Garlic 1,000 mg PO DAILY 06/29/19 Lorazepam [Ativan] 1.5 mg PO QHS 06/29/19 Tamsulosin HCl 0.4 mg PO QHS 06/29/19 Verapamil HCl [Verapamil ER] 120 mg PO QHS 06/29/19 Surgical History: Surgical History (Last Reviewed 06/14/19 @ 07:52 by CODY Schwartz) Status post laparoscopic colectomy (Resolved) Z90.49 history of right eye surgery (Resolved) History of right inguinal hernia repair (Resolved) Z98.890, Z87.19 History of tonsillectomy (Resolved) Z98.890, Z90.89 History of coronary angioplasty (Chronic) Z98.61 Surgical History: angioplasty, colectomy, - - Left thumb surgery, bilateral anterior ethmoidectomy, bilateral maxillary antrostomy, hernia surgery Psychiatric History: No pertinent psych hx Lives: Spouse/ Significant Other Smoking Status: Former smoker Alcohol: None Drugs: None - *Family History Maternal Family History: Family History (Last Reviewed 06/14/19 @ 07:52 by CODY Schwartz) Father Heart disease History Items: - - Denies known maternal medical history including cardiac history Paternal Family History: Family History (Last Reviewed 06/14/19 @ 07:52 by CODY Schwartz) Father Heart disease Review of Systems Constitutional: Reports: Chills, Fever HEENT: Denies: Head Aches, Sinus Congestion, Sinus Drainage Cardiovascular: Denies: Chest Pain, Palpitations Respiratory: Reports: Cough, Shortness of Breath, Sputum production, Wheezing Gastrointestinal: Denies: Abdominal Pain, Nausea, Vomiting Genitourinary: Denies: Dysuria Musculoskeletal: Denies: Joint Pain, Joint Tenderness Skin: Denies: Rash, Wounds Neurological: Denies: Numbness, Tingling, Focal weakness Psychiatric: Denies: Anxiety, Depression, Homicidal Ideations, Suicidal Ideations Hematologic/ Lymphatic: Denies: Easy Bruising, Easy Bleeding VTE Information - Inpt Only VTE Present on Admission: No VTE Mechan Device Prophylaxis: None VTE Pharm Prophylaxis ordered?: Yes - Physical Exam Vitals/I&O's: Vital Signs Temp Pulse Resp BP Pulse Ox 97.5 F L 114 H 17 162/102 H 93 06/29/19 16:06 06/29/19 16:14 06/29/19 16:14 06/29/19 16:06 06/29/19 16:06 Oxygen Delivery Method Room Air Weight: 170 lb Body Mass Index (BMI) 26.6 General: Alert, Oriented x3, Cooperative HEENT: Atraumatic, PERRLA, EOMI, Normocephalic Oral: Dry Mucosa Neck: Supple, No JVD, Negative Carotid Bruits Lungs: Diminished, Wheezes Cardiovascular: Regular rate, Regular Rhythm, Normal S1, Normal S2, No murmurs Abdomen: Bowel Sounds Present, Soft, Non Tender, Non-Distended Extremities: No clubbing, No cyanosis, No edema, Capillary Refill Less than 3 Seconds Skin: No rashes, No breakdown Musculoskeletal: No Tenderness to Palpation of Joints or Extremities Neurological: Cranial nerves II-XII grossly intact, Neuro grossly intact Psych/Mental Status: Normal Affect, Appropriate Microbiology Past 72 Hours 06/29/19 14:40 Mucosa - Nose Influenza Types A,B Direct FA (WINTER) - Final Influenzae A Laboratory Results 06/29/19 14:40: WBC 11.2 H, RBC 4.74, Hgb 13.9, Hct 42.4, MCV 89.5, MCH 29.3, MCHC 32.8, RDW Std Deviation 44.6 H, RDW Coeff of Kylee 13.6, Plt Count 380, MPV 10.2, Immature Gran % (Auto) 0.600, Neut % (Auto) 91.1 H, Lymph % (Auto) 3.0 L, [place] % (Auto) 3.2, Eos % (Auto) 1.8, Baso % (Auto) 0.3, Absolute Neuts (auto) 10.2 H, Absolute Lymphs (auto) 0.34 L, Nucleated RBC % 0, Differential Comment SCANNED 06/29/19 14:40: Sodium 142, Potassium 3.6, Chloride 109 H, Carbon Dioxide 27.0, Anion Gap 6, BUN 29 H, Creatinine 1.28, Estim Creat Clear Calc 46.62, Est GFR (MDRD) Af Amer 70, Est GFR (MDRD) Non-Af 58 L, BUN/Creatinine Ratio 22.7 H, Glucose 113 H, Calcium 9.7, Troponin I < 0.015 Current Medications Acetaminophen (Tylenol) 650 mg PO Q6H PRN PRN PRN Reason: Pain Score 1-10/Temp > 100.7 F Budesonide (Pulmicort Aerosol) 0.25 mg INHALATION Q12H [facility] Clopidogrel Bisulfate (Plavix) 75 mg PO DAILY [facility] Dextrose (D50w Syringe) 0 gm IV X1 PRN; Protocol PRN Reason: Hypoglycemia Enoxaparin Sodium (Lovenox) 40 mg SC DAILY [facility] Fluticasone Propionate (Flonase Nasal [place]) 2 spray NASAL DAILY [facility] Formoterol Fumarate (Perforomist) 20 mcg INHALATION Q12H [facility] Glucagon () 1 mg IM .X1 PRN PRN Reason: Hypoglycemia Guaifenesin (Mucinex) 1,200 mg PO BID [facility] Sodium Chloride () 1,000 mls @ 150 mls/hr IV .Q6H40M ONE Stop: 06/29/19 21:03 Last Admin: 06/29/19 15:22 Dose: 150 mls/hr Documented by: Levofloxacin (Levaquin Iv) 750 mg in 150 mls @ 100 mls/hr IV X1 ONE Stop: 06/29/19 16:47 Last Admin: 06/29/19 15:44 Dose: 100 mls/hr Documented by: Sodium Chloride () 1,000 mls @ 100 mls/hr IV .Q10H [facility] Stop: 06/30/19 02:09 Levofloxacin (Levaquin Iv) 500 mg in 100 mls @ 100 mls/hr IV Q24 [facility] Stop: 07/04/19 10:59 Lorazepam (Ativan) 1.5 mg PO QHS [facility] Methylprednisolone (Solu-Medrol) 40 mg IV Q8 [facility] Non-Formulary Medication (Cholecalciferol (Vitamin D3) [Vitamin D3]) 2,000 unit PO DAILY [facility] Non-Formulary Medication (Ipratropium/Albuterol Respimat) 1 puff INHALATION PRN PRN PRN Reason: SHORTNESS OF BREATH Non-Formulary Medication (Piroxicam) 10 mg PO DAILY [facility] Non-Formulary Medication (Verapamil Hcl [Verapamil Er]) 120 mg PO QHS [facility] Ondansetron HCl (Zofran) 4 mg IV Q8H PRN PRN PRN Reason: NAUSEA/VOMITING Oxycodone HCl (Oxyir) 5 mg PO Q4H PRN PRN PRN Reason: Pain Score 4-5/10 Tamsulosin HCl (Flomax) 0.4 mg PO QHS [facility] Assessment/Plan All Active Problems (Last Reviewed 06/14/19 @ 07:52 by Monalisa Lyon NP-C) Status post laparoscopic colectomy (Resolved) history of right eye surgery (Resolved) History of right inguinal hernia repair (Resolved) History of tonsillectomy (Resolved) 1. Acute COPD/asthma/bronchiectasis exacerbation secondary to influenza A with chronic hypoxic respiratory failure-rapid influenza positive for influenza A. Initiated on Tamiflu in ER. IV Solu-Medrol. Albuterol and DuoNeb aerosols. Patient wears 2 L nasal cannula nightly and PRN. Continue supplement oxygen to maintain O2 at or above 90%. Walking pulse ox prior to discharge. Send sputum for culture. IV Levaquin empirically. Chest x-ray without focal infiltrate. Mucinex 1200 mg p.o. twice daily. 2. CAD status post stents-denies chest pain. States he refuses to follow-up with cardiology. Continue Plavix. 3. BPH-continue Flomax regimen. 4. Hypertension-elevated on admission, continue verapamil regimen. As needed hydralazine for systolic blood pressure greater than 160. 5. Former tobacco use-quit in 2000. Encourage cessation. DVT prophylaxis-Lovenox subcu. CODE STATUS: DNR CCA, okay with intubation per pulmonary purposes. This patient was seen by CODY Peterson under the supervision of Dr. Gonsalves.
[2019-06-29] MEDS: 0.9% Normal Saline 1,000 ML 100 ML IV (18:13)
[2019-06-29] MEDS: Fluticasone 0.05% 1 SPRAY NASAL.SRY 2 SPRAY NASAL (18:44)
[2019-06-29] MEDS: guaiFENesin 1,200 MG Tablet 1200 MG PO (22:03)
[2019-06-29] MEDS: LORazepam 0.5 MG Tablet 1.5 MG PO (22:04)
[2019-06-29] MEDS: Tamsulosin HCl 0.4 MG Capsule PO (22:04)
[2019-06-29] MEDS: Verapamil SR 240 MG Tablet 120 MG PO (22:06)
[2019-06-29] MEDS: Oseltamivir Phosphate 30 MG Capsule PO (22:08)
[2019-06-30] VITALS (14 sets, daily range): BP systolic 140–178; BP diastolic 83–88; PULSE 80–115; RESP 16–20; TEMP 36.1–36.4; O2SAT 92–97
[2019-06-30] MEDS: 0.9% Saline Lock 10 ML Syringe IV ×4 (06:24→21:36)
[2019-06-30 06:55] LABS: Absolute Lymphocyte Count 0.39 X10^3/uL (0.83-4.51); Absolute Neutrophil Count 7.8 X10^3/uL (2.0-7.7); Basophil# 0.01 X10^3/uL; Basophil% 0.1 % (0-1); Hematocrit 38.6 % (40-54); Hemoglobin 12.7 g/dL (13.0-16.5); Lymphocyte # 0.39 X10^3/ul (4.0); Lymphocyte % 4.6 % (19-41); Mean Corp Hgb Conc 32.9 g/dL (32-36); Mean Corpuscular Hgb 29.3 pg (27.0-32.0); Mean Corpuscular Volume 89.1 fL (80-94); Mean Platelet Vol. 10.5 fl (6.2-12.0); Monocyte# 0.24 X10^3/uL; Monocyte% 2.8 % (0-10); NRBC Flagged by Analyzer 0 % (0-5); Neutrophil # 7.81 X10^3/uL (2.7-7.7); Neutrophil % 91.4 % (47-70); POSITIVE DIFFERENTIAL YES; Platelet Count 344 K/mm3 (150-450); RBC Distribution Width CV 13.5 % (11.6-14.6); RBC Distribution Width SD 44.2 fl (35.1-43.9); Red Blood Count 4.33 M/mm3 (4.6-6.2); White Blood Count 8.5 K/mm3 (4.4-11.0)
[2019-06-30 06:57] LABS: Differential Indicated SCAN CRITERIA MET
[2019-06-30] MEDS: Albuterol 2.5 MG/3 ML VIAL.NEB. INHALATION ×3 (07:04→20:23)
[2019-06-30 07:10] LABS: Anion Gap 8 (5-15); BUN 31 mg/dL (7-18); BUN/Creat Ratio 22.1 RATIO (10-20); Calcium,Total 9.2 mg/dL (8.5-10.1); Chloride 109 mmol/L (98-107); EST Glomerular Filtration Rate 53 mL/min (>60); Est Glom Filt Rate - Afr Amer 64 mL/min (>60); Estimated Creatinine Clearance 42.62 ml/min; Glucose 128 mg/dL (74-106); Potassium 3.8 mmol/L (3.5-5.1); Sodium Level 142 mmol/L (136-145)
[2019-06-30 07:11] LABS: Differential Comment SCANNED
[2019-06-30 07:12] LABS: Platelet Estimate ADEQUATE (ADEQ)
[2019-06-30] MEDS: levoFLOXacin IV 500 MG/100 ML BAG 100 MG IV (08:26)
[2019-06-30] MEDS: Oseltamivir Phosphate 30 MG Capsule PO ×2 (08:33→21:35)
[2019-06-30] MEDS: Fluticasone 0.05% 1 SPRAY NASAL.SRY 2 SPRAY NASAL (08:34)
[2019-06-30] MEDS: guaiFENesin 1,200 MG Tablet 1200 MG PO ×2 (08:34→21:35)
[2019-06-30] MEDS: Clopidogrel Bisulfate 75 MG Tablet PO (08:34)
--- NOTE | 2019-06-30 10:16 | CASEMGMT ---
RN ANDREW CAL[employer]ATION LABORATORY TECHNICIAN CM to room to meet with patient for initial transition planning/care coordination assessment. TREVOR MORALES introduced self and role at [facility]. Pt voices understanding and consents to assessment at this time. Pt sitting up in recliner chair in no distress at this time. Pt is A/O at this time and answers all questions appropriately. Care providers, pharmacy, and demographics verified/updated at this time. PCP: Dr Juliano Calabrese Specialists: Dr Kessler--game operator [facility]erred Pharmacy: [facility] Insurance: [employer] Prescription Benefit: Yes Living Will/HPOA: Has both LW and Healthcare POA, who is his , Shania Appiah. Records of both are on file @ [facility] LNOK: , Shania Appiah. Son, Chun Clements. Also has a daughter who is a resident @ [facility] Living Arrangements: Lives with his in one story home w/one step to enter. Independent with ADL's and IADL's. does most home mgmt tasks. Pt states he does outside/yardwork. Ambulates independently without assistive device. Transportation: Pt states drives self and states no transportation concerns at this time. also drives DME: has the following DME: wears O2 @ 3 L/M @ [facility]. has concentrator that he purchased independently. Does not have portable O2 tanks. Amb pulse ox was just completed by therapy and that he was @ 91% while ambulating. Asked pt, if he does qualify for O2 w/ambulation prior to discharge, what DME company he would want to get portable tanks from. Pt stated, I don't need portable tanks. I know what to do. I have my inhaler and can use that. Pt states no need for further DME at this time. HHC/SNF: No history of SNF or HHC. Denies needs. Pt wishes to return home and states has no concerns with going home at time of discharge. CM to follow for home oxygen needs and any further discharge planning/needs. Pt voices no further concerns/needs at this time. Advised pt to ask for CM if any further questions/concerns/needs arise. Voices understanding. PLAN: Home w/spouse. Follow for any increased Home O2 needs. Iker LIANG RN, CM
--- NOTE | 2019-06-30 11:09 | PN_ITS ---
Vitals/I&O's: Vital Signs Temp Pulse Resp BP Pulse Ox 97.2 F L 100 18 140/85 H 92 06/30/19 08:10 06/30/19 08:10 06/30/19 08:10 06/30/19 08:10 06/30/19 08:10 Oxygen Flow Rate (L/min) 3.5 Oxygen Delivery Method Room Air Weight: 169 lb 15.622 oz Body Mass Index (BMI) 26.6 Intake and Output for Last 24 Hours 06/28/19 06/29/19 06/30/19 23:59 23:59 23:59 Intake Total 932.5 / 1282.5 1811.67 / 1811.67 Output Total 1100 / 1100 Balance 932.5 / 982.5 711.67 / 711.67 Microbiology Past 72 Hours 06/29/19 14:40 Mucosa - Nose Influenza Types A,B Direct FA (WINTER) - Final Influenzae A Laboratory Results 06/29/19 14:40: WBC 11.2 H, RBC 4.74, Hgb 13.9, Hct 42.4, MCV 89.5, MCH 29.3, MCHC 32.8, RDW Std Deviation 44.6 H, RDW Coeff of Kylee 13.6, Plt Count 380, MPV 10.2, Immature Gran % (Auto) 0.600, Neut % (Auto) 91.1 H, Lymph % (Auto) 3.0 L, [place] % (Auto) 3.2, Eos % (Auto) 1.8, Baso % (Auto) 0.3, Absolute Neuts (auto) 10.2 H, Absolute Lymphs (auto) 0.34 L, Nucleated RBC % 0, Differential Comment SCANNED 06/29/19 14:40: Sodium 142, Potassium 3.6, Chloride 109 H, Carbon Dioxide 27.0, Anion Gap 6, BUN 29 H, Creatinine 1.28, Estim Creat Clear Calc 46.62, Est GFR (MDRD) Af Amer 70, Est GFR (MDRD) Non-Af 58 L, BUN/Creatinine Ratio 22.7 H, Glucose 113 H, Calcium 9.7, Troponin I < 0.015 06/30/19 06:15: WBC 8.5, RBC 4.33 L, Hgb 12.7 L, Hct 38.6 L, MCV 89.1, MCH 29.3, MCHC 32.9, RDW Std Deviation 44.2 H, RDW Coeff of Kylee 13.5, Plt Count 344, MPV 10.5, Immature Gran % (Auto) 1.100 H, Neut % (Auto) 91.4 H, Lymph % (Auto) 4.6 L , [place] % (Auto) 2.8, Eos % (Auto) 0.0, Baso % (Auto) 0.1, Absolute Neuts (auto) 7.8 H, Absolute Lymphs (auto) 0.39 L, Nucleated RBC % 0, Differential Comment SCANNED, Platelet Estimate ADEQUATE 06/30/19 06:15: Sodium 142, Potassium 3.8, Chloride 109 H, Carbon Dioxide 25.0, Anion Gap 8, BUN 31 H, Creatinine 1.40 H, Estim Creat Clear Calc 42.62, Est GFR (MDRD) Af Amer 64, Est GFR (MDRD) Non-Af 53 L, BUN/Creatinine Ratio 22.1 H, Glucose 128 H, Calcium 9.2 Current Medications Acetaminophen (Tylenol) 650 mg PO Q6H PRN PRN PRN Reason: Pain Score 1-10/Temp > 100.7 F Albuterol Sulfate (Ventolin Aerosols) 2.5 mg INHALATION Q6HWA.RT [facility] Last Admin: 06/30/19 07:04 Dose: 2.5 mg Documented by: Albuterol/Ipratropium (Duoneb) 3 ml INHALATION Q4H PRN PRN PRN Reason: Shortness of Breath Cholecalciferol (Vitamin D (25mcg)) 2,000 unit PO DAILY [facility] Last Admin: 06/30/19 08:33 Dose: 2,000 unit Documented by: Clopidogrel Bisulfate (Plavix) 75 mg PO DAILY [facility] Last Admin: 06/30/19 08:34 Dose: 75 mg Documented by: Enoxaparin Sodium (Lovenox) 40 mg SC DAILY [facility] Last Admin: 06/30/19 08:34 Dose: Not Given Documented by: Fluticasone Propionate (Flonase Nasal [place]) 2 spray NASAL DAILY [facility] Last Admin: 06/30/19 08:34 Dose: 2 spray Documented by: Glucagon () 1 mg IM .X1 PRN PRN Reason: Hypoglycemia Guaifenesin (Mucinex) 1,200 mg PO BID [facility] Last Admin: 06/30/19 08:34 Dose: 1,200 mg Documented by: Hydralazine HCl (Apresoline Iv) 5 mg IV Q4H PRN PRN PRN Reason: BLOOD PRESSURE Levofloxacin (Levaquin Iv) 500 mg in 100 mls @ 100 mls/hr IV Q24 [facility] Stop: 07/04/19 10:59 Last Admin: 06/30/19 08:26 Dose: 100 mls/hr Documented by: Dextrose (Dextrose 10%-Water) 250 mls @ 999 mls/hr IV .Q16M PRN; Protocol PRN Reason: HYPOGLYCEMIA Sodium Chloride () 250 mls @ 15 mls/hr IV .[id number] PRN PRN Reason: Saline Flush Lorazepam (Ativan) 1.5 mg PO QHS [facility] Last Admin: 06/29/19 22:04 Dose: 1.5 mg Documented by: Methylprednisolone (Solu-Medrol) 40 mg IV Q8 [facility] Last Admin: 06/30/19 06:24 Dose: 40 mg Documented by: Ondansetron HCl (Zofran) 4 mg IV Q8H PRN PRN PRN Reason: NAUSEA/VOMITING Oseltamivir Phosphate (Tamiflu) 30 mg PO BID [facility] Stop: 07/04/19 10:01 Last Admin: 06/30/19 08:33 Dose: 30 mg Documented by: Oxycodone HCl (Oxyir) 5 mg PO Q4H PRN PRN PRN Reason: Pain Score 4-5/10 Piroxicam (Feldene) 10 mg PO QHS [facility] Sodium Chloride () 10 - 40 ml IV UD PRN PRN Reason: SALINE FLUSH Last Admin: 06/30/19 08:27 Dose: 10 ml Documented by: Tamsulosin HCl (Flomax) 0.4 mg PO QHS [facility] Last Admin: 06/29/19 22:04 Dose: 0.4 mg Documented by: Verapamil HCl (Calan Sr) 120 mg PO QHS [facility] Last Admin: 06/29/19 22:06 Dose: 120 mg Documented by: STROKE Vital Signs/Narrative: Vital Signs Temp Pulse Resp BP Pulse Ox 06/30/19 08:10 97.2 F L 100 18 140/85 H 92 06/30/19 07:27 80 Medical Necessity - Tobacco Use Smoking Status: Former smoker Assessment/Plan All Active Problems (Last Reviewed 06/14/19 @ 07:52 by Monalisa Lyon, AISHA-C) Status post laparoscopic colectomy (Resolved) history of right eye surgery (Resolved) History of right inguinal hernia repair (Resolved) History of tonsillectomy (Resolved) PFT January 2019 Forced expiration spirometry shows a mild large airways obstructive ventilatory defect with an FEV1 of 70% predicted. There is a significant bronchodilator response in FEV1 by strict ATS criteria. Spirograms are of good quality and plateau slowly, indicating slowly emptying areas of the lungs. The respiratory flow volume loop shows decreased expiratory flow rates at all lung volumes consistent with airway obstruction. Lung volumes by body plethysmography show an elevated total lung capacity at 7.55 L, 132% predicted. All other lung volumes are increased symmetrically. Diffusion capacity by carbon monoxide is decreased at 43% predicted. The airway resistance is elevated. Compared to previous pulmonary function tests from 07/29/2017, there is been a significant decrease in FEV1 by 14% and improvement in DLCO by 29%. Impression: Partially reversible mild large airways obstructive ventilatory defect resulting in hyperinflation and a symmetric reduction diffusion capacity. There has been significant change compared to 2018.
--- NOTE | 2019-06-30 13:53 | PN_ITS ---
<Dee Lubin - Last Filed: 06/30/19 14:10> Subjective: Patient seen and examined. Reports improvement in breathing. Oxygen remained stable on room air. Continues to have intermittent cough. Patient states his started Tamiflu last evening prophylactically due to exposure. - Physical Exam Vitals/I&O's: Vital Signs Temp Pulse Resp BP Pulse Ox 97 F L 98 18 178/85 H 94 06/30/19 13:25 06/30/19 13:25 06/30/19 13:25 06/30/19 13:25 06/30/19 13:25 Oxygen Flow Rate (L/min) 3.5 Oxygen Delivery Method Room Air Weight: 169 lb 15.622 oz Body Mass Index (BMI) 26.6 Intake and Output for Last 24 Hours 06/28/19 06/29/19 06/30/19 23:59 23:59 23:59 Intake Total 932.5 / 1282.5 2151.67 / 2151.67 Output Total 1100 / 1100 Balance 932.5 / 982.5 1051.67 / 1051.67 General: Alert, Oriented x3, Cooperative HEENT: Atraumatic, PERRLA, EOMI, Normocephalic Oral: Dry Mucosa Neck: Supple, No JVD, Negative Carotid Bruits Lungs: Diminished, Wheezes Cardiovascular: Regular rate, Regular Rhythm, Normal S1, Normal S2, No murmurs Abdomen: Bowel Sounds Present, Soft, Non Tender, Non-Distended Extremities: No clubbing, No cyanosis, No edema, Capillary Refill Less than 3 Seconds Skin: No rashes, No breakdown Musculoskeletal: No Tenderness to Palpation of Joints or Extremities Neurological: Cranial nerves II-XII grossly intact, Neuro grossly intact Psych/Mental Status: Normal Affect, Appropriate Microbiology Past 72 Hours 06/29/19 14:40 Mucosa - Nose Influenza Types A,B Direct FA (WINTER) - Final Influenzae A Laboratory Results 06/29/19 14:40: WBC 11.2 H, RBC 4.74, Hgb 13.9, Hct 42.4, MCV 89.5, MCH 29.3, MCHC 32.8, RDW Std Deviation 44.6 H, RDW Coeff of Kylee 13.6, Plt Count 380, MPV 10.2, Immature Gran % (Auto) 0.600, Neut % (Auto) 91.1 H, Lymph % (Auto) 3.0 L, Saunders % (Auto) 3.2, Eos % (Auto) 1.8, Baso % (Auto) 0.3, Absolute Neuts (auto) 10.2 H, Absolute Lymphs (auto) 0.34 L, Nucleated RBC % 0, Differential Comment SCANNED 06/29/19 14:40: Sodium 142, Potassium 3.6, Chloride 109 H, Carbon Dioxide 27.0, Anion Gap 6, BUN 29 H, Creatinine 1.28, Estim Creat Clear Calc 46.62, Est GFR (MDRD) Af Amer 70, Est GFR (MDRD) Non-Af 58 L, BUN/Creatinine Ratio 22.7 H, Glucose 113 H, Calcium 9.7, Troponin I < 0.015 06/30/19 06:15: WBC 8.5, RBC 4.33 L, Hgb 12.7 L, Hct 38.6 L, MCV 89.1, MCH 29.3, MCHC 32.9, RDW Std Deviation 44.2 H, RDW Coeff of Kylee 13.5, Plt Count 344, MPV 10.5, Immature Gran % (Auto) 1.100 H, Neut % (Auto) 91.4 H, Lymph % (Auto) 4.6 L , Saunders % (Auto) 2.8, Eos % (Auto) 0.0, Baso % (Auto) 0.1, Absolute Neuts (auto) 7.8 H, Absolute Lymphs (auto) 0.39 L, Nucleated RBC % 0, Differential Comment SCANNED, Platelet Estimate ADEQUATE 06/30/19 06:15: Sodium 142, Potassium 3.8, Chloride 109 H, Carbon Dioxide 25.0, Anion Gap 8, BUN 31 H, Creatinine 1.40 H, Estim Creat Clear Calc 42.62, Est GFR (MDRD) Af Amer 64, Est GFR (MDRD) Non-Af 53 L, BUN/Creatinine Ratio 22.1 H, Glucose 128 H, Calcium 9.2 Current Medications Acetaminophen (Tylenol) 650 mg PO Q6H PRN PRN PRN Reason: Pain Score 1-10/Temp > 100.7 F Albuterol Sulfate (Ventolin Aerosols) 2.5 mg INHALATION Q6HWA.RT RAJ Last Admin: 06/30/19 07:04 Dose: 2.5 mg Documented by: Albuterol/Ipratropium (Duoneb) 3 ml INHALATION Q4H PRN PRN PRN Reason: Shortness of Breath Cholecalciferol (Vitamin D (25mcg)) 2,000 unit PO DAILY [facility] Last Admin: 06/30/19 08:33 Dose: 2,000 unit Documented by: Clopidogrel Bisulfate (Plavix) 75 mg PO DAILY [facility] Last Admin: 06/30/19 08:34 Dose: 75 mg Documented by: Enoxaparin Sodium (Lovenox) 40 mg SC DAILY [facility] Last Admin: 06/30/19 08:34 Dose: Not Given Documented by: Fluticasone Propionate (Flonase Nasal Cotton) 2 spray NASAL DAILY [facility] Last Admin: 06/30/19 08:34 Dose: 2 spray Documented by: Glucagon () 1 mg IM .X1 PRN PRN Reason: Hypoglycemia Guaifenesin (Mucinex) 1,200 mg PO BID [facility] Last Admin: 06/30/19 08:34 Dose: 1,200 mg Documented by: Hydralazine HCl (Apresoline Iv) 5 mg IV Q4H PRN PRN PRN Reason: BLOOD PRESSURE Levofloxacin (Levaquin Iv) 500 mg in 100 mls @ 100 mls/hr IV Q24 [facility] Stop: 07/04/19 10:59 Last Infusion: 06/30/19 09:30 Dose: Infused Documented by: Dextrose (Dextrose 10%-Water) 250 mls @ 999 mls/hr IV .Q16M PRN; Protocol PRN Reason: HYPOGLYCEMIA Sodium Chloride () 250 mls @ 15 mls/hr IV .[id number] PRN PRN Reason: Saline Flush Lorazepam (Ativan) 1.5 mg PO QHS [facility] Last Admin: 06/29/19 22:04 Dose: 1.5 mg Documented by: Methylprednisolone (Solu-Medrol) 40 mg IV Q8 [facility] Last Admin: 06/30/19 13:14 Dose: 40 mg Documented by: Ondansetron HCl (Zofran) 4 mg IV Q8H PRN PRN PRN Reason: NAUSEA/VOMITING Oseltamivir Phosphate (Tamiflu) 30 mg PO BID [facility] Stop: 07/04/19 10:01 Last Admin: 06/30/19 08:33 Dose: 30 mg Documented by: Oxycodone HCl (Oxyir) 5 mg PO Q4H PRN PRN PRN Reason: Pain Score 4-5/10 Piroxicam (Feldene) 10 mg PO QHS [facility] Sodium Chloride () 10 - 40 ml IV UD PRN PRN Reason: SALINE FLUSH Last Admin: 06/30/19 13:14 Dose: 10 ml Documented by: Tamsulosin HCl (Flomax) 0.4 mg PO QHS [facility] Last Admin: 06/29/19 22:04 Dose: 0.4 mg Documented by: Verapamil HCl (Calan Sr) 120 mg PO QHS [facility] Last Admin: 06/29/19 22:06 Dose: 120 mg Documented by: Medical Necessity - Tobacco Use Smoking Status: Former smoker Assessment/Plan All Active Problems (Last Reviewed 06/14/19 @ 07:52 by Monalisa Lyon NP-C) Status post laparoscopic colectomy (Resolved) history of right eye surgery (Resolved) History of right inguinal hernia repair (Resolved) History of tonsillectomy (Resolved) 1. Acute COPD/asthma/bronchiectasis exacerbation secondary to influenza A with chronic hypoxic respiratory failure-rapid influenza positive for influenza A. Initiated on Tamiflu in ER, continue renally dosed course. IV Solu-Medrol. Albuterol and DuoNeb aerosols. Patient wears 2 L nasal cannula nightly and PRN. Continue supplement oxygen to maintain O2 at or above 90%. Walking pulse ox prior to discharge. Send sputum for culture. IV Levaquin empirically. Chest x-ray without focal infiltrate. Mucinex 1200 mg p.o. twice daily. Anticipate d ischarge home tomorrow if continued improvement. 2. CAD status post stents-denies chest pain. States he refuses to follow-up with cardiology. Continue Plavix. 3. BPH-continue Flomax regimen. 4. Hypertension-continue verapamil regimen. As needed hydralazine for systolic blood pressure greater than 160. 5. Former tobacco use-quit in 2000. Encourage cessation. DVT prophylaxis-Lovenox subcu. CODE STATUS: DNR CCA, okay with intubation per pulmonary purposes. This patient was seen by CODY Peterson under the supervision of Dr. Figueredo. <Robel Figueredo - Last Filed: 06/30/19 15:14> Subjective: Seen and examined. Patient has influenza A. Admitted with cough, fever and worsening of shortness of breath consistent with COPD exacerbation secondary to influenza A bronchitis. - Physical Exam Vitals/I&O's: Vital Signs Temp Pulse Resp BP Pulse Ox 97 F L 98 18 178/85 H 94 06/30/19 13:25 06/30/19 14:07 06/30/19 13:25 06/30/19 13:25 06/30/19 13:25 Oxygen Flow Rate (L/min) 3.5 Oxygen Delivery Method Room Air Weight: 169 lb 15.622 oz Body Mass Index (BMI) 26.6 Intake and Output for Last 24 Hours 06/28/19 06/29/19 06/30/19 23:59 23:59 23:59 Intake Total 932.5 / 1282.5 2151.67 / 2151.67 Output Total 1100 / 1100 Balance 932.5 / 982.5 1051.67 / 1051.67 General: Alert, Oriented x3, Cooperative HEENT: Atraumatic, PERRLA, EOMI, Normocephalic Neck: Supple, No JVD, Negative Carotid Bruits Lungs: Diminished, Rhonchi, Wheezes Cardiovascular: Regular rate, Regular Rhythm, Normal S1, Normal S2, No murmurs Abdomen: Bowel Sounds Present, Soft, Non Tender Extremities: No edema, Capillary Refill Less than 3 Seconds Skin: No rashes, No breakdown Musculoskeletal: No Tenderness to Palpation of Joints or Extremities, Arthritic Changes Neurological: Cranial nerves II-XII grossly intact, Deep Tendon Reflexes 2+/4 and Symmetrical, Neuro grossly intact, Motor Exam 5/5 strength throughout Psych/Mental Status: Normal Affect, Appropriate Microbiology Past 72 Hours 06/29/19 22:15 Sputum, Expectorated/Coughed Gram Stain - Final 06/29/19 14:40 Mucosa - Nose Influenza Types A,B Direct FA (WINTER) - Final Influenzae A Laboratory Results 06/29/19 14:40: Differential Comment SCANNED 06/30/19 06:15: WBC 8.5, RBC 4.33 L, Hgb 12.7 L, Hct 38.6 L, MCV 89.1, MCH 29.3, MCHC 32.9, RDW Std Deviation 44.2 H, RDW Coeff of Kylee 13.5, Plt Count 344, MPV 10.5, Immature Gran % (Auto) 1.100 H, Neut % (Auto) 91.4 H, Lymph % (Auto) 4.6 L , Saunders % (Auto) 2.8, Eos % (Auto) 0.0, Baso % (Auto) 0.1, Absolute Neuts (auto) 7.8 H, Absolute Lymphs (auto) 0.39 L, Nucleated RBC % 0, Differential Comment SCANNED, Platelet Estimate ADEQUATE 06/30/19 06:15: Sodium 142, Potassium 3.8, Chloride 109 H, Carbon Dioxide 25.0, Anion Gap 8, BUN 31 H, Creatinine 1.40 H, Estim Creat Clear Calc 42.62, Est GFR (MDRD) Af Amer 64, Est GFR (MDRD) Non-Af 53 L, BUN/Creatinine Ratio 22.1 H, Glucose 128 H, Calcium 9.2 Current Medications Acetaminophen (Tylenol) 650 mg PO Q6H PRN PRN PRN Reason: Pain Score 1-10/Temp > 100.7 F Albuterol Sulfate (Ventolin Aerosols) 2.5 mg INHALATION Q6HWA.RT [facility] Last Admin: 06/30/19 13:53 Dose: 2.5 mg Documented by: Albuterol/Ipratropium (Duoneb) 3 ml INHALATION Q4H PRN PRN PRN Reason: Shortness of Breath Cholecalciferol (Vitamin D (25mcg)) 2,000 unit PO DAILY [facility] Last Admin: 06/30/19 08:33 Dose: 2,000 unit Documented by: Clopidogrel Bisulfate (Plavix) 75 mg PO DAILY [facility] Last Admin: 06/30/19 08:34 Dose: 75 mg Documented by: Enoxaparin Sodium (Lovenox) 40 mg SC DAILY [facility] Last Admin: 06/30/19 08:34 Dose: Not Given Documented by: Fluticasone Propionate (Flonase Nasal Cotton) 2 spray NASAL DAILY [facility] Last Admin: 06/30/19 08:34 Dose: 2 spray Documented by: Glucagon () 1 mg IM .X1 PRN PRN Reason: Hypoglycemia Guaifenesin (Mucinex) 1,200 mg PO BID [facility] Last Admin: 06/30/19 08:34 Dose: 1,200 mg Documented by: Hydralazine HCl (Apresoline Iv) 5 mg IV Q4H PRN PRN PRN Reason: BLOOD PRESSURE Levofloxacin (Levaquin Iv) 500 mg in 100 mls @ 100 mls/hr IV Q24 [facility] Stop: 07/04/19 10:59 Last Infusion: 06/30/19 09:30 Dose: Infused Documented by: Dextrose (Dextrose 10%-Water) 250 mls @ 999 mls/hr IV .Q16M PRN; Protocol PRN Reason: HYPOGLYCEMIA Sodium Chloride () 250 mls @ 15 mls/hr IV .[id number] PRN PRN Reason: Saline Flush Lorazepam (Ativan) 1.5 mg PO QHS [facility] Last Admin: 06/29/19 22:04 Dose: 1.5 mg Documented by: Methylprednisolone (Solu-Medrol) 40 mg IV Q8 [facility] Last Admin: 06/30/19 13:14 Dose: 40 mg Documented by: Ondansetron HCl (Zofran) 4 mg IV Q8H PRN PRN PRN Reason: NAUSEA/VOMITING Oseltamivir Phosphate (Tamiflu) 30 mg PO BID [facility] Stop: 07/04/19 10:01 Last Admin: 06/30/19 08:33 Dose: 30 mg Documented by: Oxycodone HCl (Oxyir) 5 mg PO Q4H PRN PRN PRN Reason: Pain Score 4-5/10 Piroxicam (Feldene) 10 mg PO QHS [facility] Sodium Chloride () 10 - 40 ml IV UD PRN PRN Reason: SALINE FLUSH Last Admin: 06/30/19 13:14 Dose: 10 ml Documented by: Tamsulosin HCl (Flomax) 0.4 mg PO QHS [facility] Last Admin: 06/29/19 22:04 Dose: 0.4 mg Documented by: Verapamil HCl (Calan Sr) 120 mg PO QHS [facility] Last Admin: 06/29/19 22:06 Dose: 120 mg Documented by: Assessment/Plan This patient was seen in conjunction with MANAGER MASSAGE DEPARTMENTDee. I have independently interviewed and examined the patient and reviewed pertinent history, examination findings, laboratory and plan of management. I have reviewed the note and agree with the documented findings with the few additional points. In brief, patient is admitted for COPD exacerbation secondary to influenza A bronchitis. Patient has chronic hypoxic respiratory failure and uses 2 L oxygen at night or as needed for exertion. On Tamiflu. On bronchodilator, IV Solu- Medrol, chest. Therapy and incentive spirometry. Hypertension: Blood pressure is elevated on IV hydralazine. Continue verapamil. Patient started on amlodipine 5 mg daily. Other comorbidities as mentioned above including coronary artery status post stents, BPH and hypertension. I have discussed my assessment with MANAGER MASSAGE DEPARTMENTDee and orders have been reviewed. Microbiology Past 72 Hours 06/29/19 22:15 Sputum, Expectorated/Coughed Gram Stain - Final 06/29/19 14:40 Mucosa - Nose Influenza Types A,B Direct FA (WINTER) - Final Influenzae A Laboratory Results 06/30/19 06:15: WBC 8.5, RBC 4.33 L, Hgb 12.7 L, Hct 38.6 L, MCV 89.1, MCH 29.3, MCHC 32.9, RDW Std Deviation 44.2 H, RDW Coeff of Kylee 13.5, Plt Count 344, MPV 10.5, Immature Gran % (Auto) 1.100 H, Neut % (Auto) 91.4 H, Lymph % (Auto) 4.6 L , Saunders % (Auto) 2.8, Eos % (Auto) 0.0, Baso % (Auto) 0.1, Absolute Neuts (auto) 7.8 H, Absolute Lymphs (auto) 0.39 L, Nucleated RBC % 0, Differential Comment SCANNED, Platelet Estimate ADEQUATE 06/30/19 06:15: Sodium 142, Potassium 3.8, Chloride 109 H, Carbon Dioxide 25.0, Anion Gap 8, BUN 31 H, Creatinine 1.40 H, Estim Creat Clear Calc 42.62, Est GFR (MDRD) Af Amer 64, Est GFR (MDRD) Non-Af 53 L, BUN/Creatinine Ratio 22.1 H, Glucose 128 H, Calcium 9.2 Clinical Impression(s) from Imaging Studies Chest X-Ray 06/29/19 14:58 IMPRESSION: Interstitial fibrosis is again identified in both lungs slightly more pronounced on the right. The overall appearance of the chest is unchanged. Code Visit Inpatient E&M: 65677 Subs Hosp L2
[2019-06-30] MEDS: hydrALAZINE 20 MG/ML Vial 10 MG IV (14:07)
[2019-06-30] MEDS: amLODIPine 5 MG Tablet PO (15:13)
[2019-06-30] MEDS: LORazepam 0.5 MG Tablet 1.5 MG PO (21:29)
[2019-06-30] MEDS: Verapamil SR 240 MG Tablet 120 MG PO (21:30)
[2019-06-30] MEDS: Tamsulosin HCl 0.4 MG Capsule PO (21:35)
[2019-07-01] VITALS (7 sets, daily range): BP systolic 143–180; BP diastolic 78–91; PULSE 79–112; RESP 18–20; TEMP 36.3–36.7; O2SAT 93–95
--- NOTE | 2019-07-01 05:21 | NURSING ---
Verbal report given to Sandra MURRAY at this time
[2019-07-01] MEDS: 0.9% Saline Lock 10 ML Syringe IV (05:42)
[2019-07-01] MEDS: Fluticasone 0.05% 1 SPRAY NASAL.SRY 2 SPRAY NASAL (09:57)
[2019-07-01] MEDS: Albuterol 2.5 MG/3 ML VIAL.NEB. INHALATION (10:07)
--- NOTE | 2019-07-01 10:58 | DCINST_ITS ---
You will use the following diet at home:: Cardiac Discharge Activity: Return to Normal Activity Call your doctor if you observe: Shortness of breath, Dizziness, Fainting spells, Chest pain Allergies/Adverse Reactions: Allergies aspirin Allergy (Verified 06/29/19 14:18) Shortness of breath adhesive Adverse Reaction (Verified 06/29/19 14:18) Rash amoxicillin trihydrate [From Augmentin] Adverse Reaction (Verified 06/29/19 14:18) Other TINGLING ALL OVER atorvastatin calcium [From Lipitor] Adverse Reaction (Verified 06/29/19 14:18) Unknown metoprolol succinate [From Toprol XL] Adverse Reaction (Verified 06/29/19 14:18) Rash naproxen [From Naprosyn] Adverse Reaction (Verified 06/29/19 14:18) Shortness of breath paroxetine HCl [From Paxil] Adverse Reaction (Verified 06/29/19 14:18) Unknown potassium clavulanate [From Augmentin] Adverse Reaction (Verified 06/29/19 14:18) Unknown propoxyphene HCl [From Darvon] Adverse Reaction (Verified 06/29/19 14:18) Unknown sertraline HCl [From Zoloft] Adverse Reaction (Verified 06/29/19 14:18) Unknown simvastatin [From Zocor] Adverse Reaction (Verified 06/29/19 14:18) Unknown tiotropium bromide [From Spiriva with HandiHaler] Adverse Reaction (Verified 06/29/19 14:18) Other SHORT TEMPER RUBBING ALCOHOL Adverse Reaction (Uncoded 06/29/19 14:18) Rash Medications to take at Discharge Clopidogrel Bisulfate [Plavix] 75 mg PO DAILY 02/14/13 Glucosamine/MSM/Chondroitin A [Glucosamine Chondroit MSM Tab] 1 tab PO DAILY 02/14/13 Piroxicam [Feldene] 10 mg PO DAILY 02/14/13 Ipratropium/Albuterol Respimat [Combivent Respimat Inhal Fossil] 1 puff INHALATION PRN PRN 10/30/14 Budesonide 0.25 mg INHALATION Q12H 06/29/19 Cholecalciferol (Vitamin D3) [Vitamin D3] 2,000 unit PO DAILY 06/29/19 Formoterol Fumarate [Perforomist] 2 ml INHALATION Q12H 06/29/19 Garlic 1,000 mg PO DAILY 06/29/19 Loperamide [Imodium] 2 mg PO Q2H PRN PRN 06/29/19 Lorazepam [Ativan] 1.5 mg PO QHS 06/29/19 Red Rice Yeast 2 cap PO DAILY 06/29/19 Tamsulosin HCl 0.4 mg PO QHS 06/29/19 Verapamil HCl [Verapamil ER] 120 mg PO QHS 06/29/19 Amlodipine [Norvasc] 10 mg PO DAILY #30 tab 07/01/19 Guaifenesin [Mucinex] 1,200 mg PO BID #60 tab 07/01/19 Levofloxacin [Levaquin] 500 mg PO DAILY #4 tab 07/01/19 Oseltamivir Phosphate [Tamiflu] 30 mg PO BID #7 cap 07/01/19 Prednisone See Taper PO DAILY #30 tab 07/01/19 The following prescriptions were given: Levofloxacin [Levaquin] 500 mg PO DAILY #4 tab Transmission Status: Pending to [address] Guaifenesin [Mucinex] 1,200 mg PO BID #60 tab Transmission Status: Pending to [address] Amlodipine [Norvasc] 10 mg PO DAILY #30 tab Transmission Status: Pending to [address] Prednisone See Taper PO DAILY #30 tab Transmission Status: Pending to [address] Oseltamivir Phosphate [Tamiflu] 30 mg PO BID #7 cap Transmission Status: Pending to [address] Primary Care Physician: Juliano Calabrese MD [Primary Care Provider] - Please follow up with your Primary Care Physician in: 1 Week Test Results: Test results from this visit will be discussed in further detail at your follow-up appointment, if applicable. Please Follow Up With: Darryn Kessler MD When: May see [employer], 2 weeks Proposed Discharge Date: 07/01/19
[2019-07-01] MEDS: guaiFENesin 1,200 MG Tablet 1200 MG PO (11:16)
[2019-07-01] MEDS: Oseltamivir Phosphate 30 MG Capsule PO (11:18)
[2019-07-01] MEDS: Clopidogrel Bisulfate 75 MG Tablet PO (11:18)
[2019-07-01] MEDS: amLODIPine 10 MG Tablet PO (11:22)
--- NOTE | 2019-07-01 13:51 | PCM.DC.SUM ---
<Dee Lubin - Last Filed: 07/01/19 13:54> Discharge Date and Diagnosis Date of Admission: 06/29/19 Date of Discharge: 07/01/19 - Primary Discharge Diagnosis 1. Acute COPD/asthma/bronchiectasis exacerbation secondary to influenza A with chronic hypoxic respiratory failure 2. CAD status post stents 3. BPH 4. Hypertension 5. 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) Asthma (Chronic) Short bowel syndrome (Chronic) BPH (benign prostatic hyperplasia) (Chronic) Personal history of other malignant neoplasm of rectum, rectosigmoid junction, and anus (Chronic) Tachycardia (Chronic) 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 classification (Chronic) FEV1 70% of predicted History of colon cancer (Chronic) History of coronary angioplasty (Chronic) COPD (chronic obstructive pulmonary disease) (Chronic) Hospital Course and Treatment Imaging Results: Diagnostic Data Chest X-Ray 06/29/19 14:58 IMPRESSION: Interstitial fibrosis is again identified in both lungs slightly more pronounced on the right. The overall appearance of the chest is unchanged. Electronically Signed: Cody Reza, at 15:41 EST Tel , Service support , Operations: None Procedures: None Summary of Care Provided: The patient is a 74 year old M admitted 06/29/2019 due to shortness of breath. 1. Acute COPD/asthma/bronchiectasis exacerbation secondary to influenza A with chronic hypoxic respiratory failure-rapid influenza positive for influenza A. Continue Tamiflu to complete renally dosed course. IV Solu-Medrol during admission, transition to prednisone taper. Patient wears 2 L nasal cannula nightly and PRN. Oxygen stable on room air. Continue Levaquin at discharge to complete course empirically. Chest x-ray without focal infiltrate. Mucinex 1200 mg p.o. twice daily. Patient discharged home in stable condition. Continue follow-up with pulmonary medicine in 1 to 2 weeks. 2. CAD status post stents-denies chest pain. States he refuses to follow-up with cardiology. Continue Plavix. 3. BPH-continue Flomax regimen. 4. Hypertension-continue verapamil regimen. Patient's blood pressure above goal during admission and he was initiated on amlodipine 10 mg daily. Continue further outpatient monitoring. 5. Former tobacco use-quit in 2000. Encourage cessation. General: Alert, Oriented x3, Cooperative HEENT: Atraumatic, PERRLA, EOMI, Normocephalic Oral: Dry Mucosa Neck: Supple, No JVD, Negative Carotid Bruits Lungs: Diminished, Wheezes Cardiovascular: Regular rate, Regular Rhythm, Normal S1, Normal S2, No murmurs Abdomen: Bowel Sounds Present, Soft, Non Tender, Non-Distended Extremities: No clubbing, No cyanosis, No edema, Capillary Refill Less than 3 Seconds Skin: No rashes, No breakdown Musculoskeletal: No Tenderness to Palpation of Joints or Extremities Neurological: Cranial nerves II-XII grossly intact, Neuro grossly intact Psych/Mental Status: Normal Affect, Appropriate Patient seen and examined prior to discharge. Physical assessment as noted above. Patient is stable for discharge with follow up recommendations as noted above. This patient was seen by CODY Peterson under the supervision of Dr. Figueredo. - Physical Exam Vitals/I&O's: Vital Signs Temp Pulse Resp BP Pulse Ox 98 F 90 20 H 152/80 H 95 07/01/19 12:35 07/01/19 12:35 07/01/19 12:35 07/01/19 12:35 07/01/19 12:35 Oxygen Flow Rate (L/min) 3 Oxygen Delivery Method Room Air Weight: 169 lb 15.622 oz Body Mass Index (BMI) 26.6 Intake and Output for Last 24 Hours 06/29/19 06/30/19 07/01/19 23:59 23:59 23:59 Intake Total 932.5 / 1282.5 2541.67 / 2541.67 800 / 800 Output Total 1300 / 1300 400 / 400 Balance 932.5 / 982.5 1241.67 / 1241.67 400 / 400 Microbiology Past 72 Hours 06/29/19 22:15 Sputum, Expectorated/Coughed Gram Stain - Final 06/29/19 14:40 Mucosa - Nose Influenza Types A,B Direct FA (WINTER) - Final Influenzae A Discharge Diet: No Restrictions Discharge Activity: Return to Normal Activity Call your doctor if you observe: Shortness of breath, Dizziness, Fainting spells, Chest pain Home Medications: Medications to take at Discharge Clopidogrel Bisulfate [Plavix] 75 mg PO DAILY 02/14/13 Glucosamine/MSM/Chondroitin A [Glucosamine Chondroit MSM Tab] 1 tab PO DAILY 02/14/13 Piroxicam [Feldene] 10 mg PO DAILY 02/14/13 Ipratropium/Albuterol Respimat [Combivent Respimat Inhal [place]] 1 puff INHALATION PRN PRN 10/30/14 Budesonide 0.25 mg INHALATION Q12H 06/29/19 Cholecalciferol (Vitamin D3) [Vitamin D3] 2,000 unit PO DAILY 06/29/19 Formoterol Fumarate [Perforomist] 2 ml INHALATION Q12H 06/29/19 Garlic 1,000 mg PO DAILY 06/29/19 Loperamide [Imodium] 2 mg PO Q2H PRN PRN 06/29/19 Lorazepam [Ativan] 1.5 mg PO QHS 06/29/19 [place] Yeast 2 cap PO DAILY 06/29/19 Tamsulosin HCl 0.4 mg PO QHS 06/29/19 Verapamil HCl [Verapamil ER] 120 mg PO QHS 06/29/19 Amlodipine [Norvasc] 10 mg PO DAILY #30 tab 07/01/19 Guaifenesin [Mucinex] 1,200 mg PO BID #60 tab 07/01/19 Levofloxacin [Levaquin] 500 mg PO DAILY #4 tab 07/01/19 Oseltamivir Phosphate [Tamiflu] 30 mg PO BID #7 cap 07/01/19 Prednisone See Taper PO DAILY #30 tab 07/01/19 Following Prescrptions Were Given to Patient: Levofloxacin [Levaquin] 500 mg PO DAILY #4 tab Transmission Status: Received by [facility] Guaifenesin [Mucinex] 1,200 mg PO BID #60 tab Transmission Status: Received by [facility] Amlodipine [Norvasc] 10 mg PO DAILY #30 tab Transmission Status: Received by [facility] Prednisone See Taper PO DAILY #30 tab Transmission Status: Received by [facility] Oseltamivir Phosphate [Tamiflu] 30 mg PO BID #7 cap Transmission Status: Received by [facility] Primary Care Physician: Juliano Calabrese MD [Primary Care Provider] - Please follow up with your Primary Care Physician in: 1 Week Please Follow Up With: Darryn Kessler MD When: May see ROAD PASSENGER FIRER, 2 weeks Disposition: Home Minutes spent on discharge:: 35 Patient Condition:: Stable Medical Necessity - Tobacco Use Smoking Status: Former smoker Meaningful Use Info Meaningful Use Diagnoses (Choose all that apply): None applicable <Robel Figueredo - Last Filed: 07/01/19 16:16> Discharge Date and Diagnosis - Secondary Discharge Diagnosis Chronic Problems (Last Reviewed 06/14/19 @ 07:52 by Monalisa Lyon NP-C) Hypoxia (Chronic) 2 L nasal cannula oxygen with sleep 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 I have independently interviewed and examined the patient and reviewed pertinent history, examination findings, laboratory and plan of management. I have reviewed the note and agree with the documented findings with the few additional points. In brief, patient is admitted for COPD exacerbation secondary to influenza A bronchitis. Patient has chronic hypoxic respiratory failure and uses 2 L oxygen at night or as needed for exertion. On Tamiflu. On bronchodilator, IV Solu-Medrol, chest. Therapy and incentive spirometry. Hypertension: Blood pressure is elevated on IV hydralazine. Continue verapamil. Patient started on amlodipine 5 mg daily. Other comorbidities as mentioned above including coronary artery status post stents, BPH and hypertension. Chest x-ray was reviewed does not show any focal infiltrate. Discharged on tapering dose of prednisone and Tamiflu and Levaquin for empiric treatment of possible bacterial superinfection bronchitis. Discharge medication reconciliation done. Discharge follow-up instructions completed. Discharge process discussed with the patient and all questions were answered to patient's satisfaction. Total time spent, exact 35 minutes on discharge meds reconciliation, examination, coordination of care with nurses and ancillary staff, review of imaging and blood test and discussion with the patient on follow-up instructions I have discussed my assessment with ROAD PASSENGER FIRERDee and orders have been reviewed. [] Objective: General: Alert, Oriented x3, Cooperative HEENT: Atraumatic, PERRLA, EOMI, Normocephalic Oral: Dry Mucosa Neck: Supple, No JVD, Negative Carotid Bruits Lungs: Air entry mildly diminished. No wheezing or rhonchi. Cardiovascular: Regular rate, Regular Rhythm, Normal S1, Normal S2, No murmurs Abdomen: Bowel Sounds Present, Soft, Non Tender, Non-Distended Extremities: No clubbing, No cyanosis, No edema, Capillary Refill Less than 3 Seconds Skin: No rashes, No breakdown Musculoskeletal: No Tenderness to Palpation of Joints or Extremities Neurological: Cranial nerves II-XII grossly intact, Neuro grossly intact Psych/Mental Status: Normal Affect, Appropriate - Physical Exam Vitals/I&O's: Vital Signs Temp Pulse Resp BP Pulse Ox 98 F 90 20 H 152/80 H 95 07/01/19 12:35 07/01/19 12:35 07/01/19 12:35 07/01/19 12:35 07/01/19 12:35 Oxygen Flow Rate (L/min) 3 Oxygen Delivery Method Room Air Weight: 169 lb 15.622 oz Body Mass Index (BMI) 26.6 Intake and Output for Last 24 Hours 06/29/19 06/30/19 07/01/19 23:59 23:59 23:59 Intake Total 932.5 / 1282.5 2541.67 / 2541.67 800 / 800 Output Total 1300 / 1300 400 / 400 Balance 932.5 / 982.5 1241.67 / 1241.67 400 / 400 Microbiology Past 72 Hours 06/29/19 22:15 Sputum, Expectorated/Coughed Gram Stain - Final 06/29/19 22:15 Sputum, Expectorated/Coughed Respiratory Culture - Preliminary Appears to be normal respiratory adolph. Further studies to follow. 06/29/19 14:40 Mucosa - Nose Influenza Types A,B Direct FA (WINTER) - Final Influenzae A Code Visit Inpatient E&M: 12613 Disch Hosp
--- NOTE | 2019-07-03 15:26 | CASEMGMT ---
RN CM Discharge F/U Phone Call LACE: 11 Strata: 3 Discharge date: 07/01/19 Call date: 07/03/19 Call time: 1527 Duration: 6 minutes Admission dx: COPD exac, influenza A Pt states 'not doing a whole lot better' since discharge and states still coughing up drainage. Pt is speaking in full sentences in no respiratory distress at this time. Pt states no questions regarding discharge instructions or medications at this time. Pt states has f/u appt's scheduled and plans to keep them. Pt states some suggestions for [facility] regarding the way meds/allergies are listed in the computer and this RN CM will pass along to PCU management. Pt voices no further questions/concerns/needs at this time. SStaten RN ANDREW
== END 2019-07-01 12:39 | disposition home or self-care (01) | DRG 192 ==
LOC: ED 14:29 → PCU 16:32
PROVIDERS: Admitting Provider Nurse Practitioner Family; Emergency Provider Emergency Medicine; PCP Family Medicine; Visit Provider Internal Medicine
DX: J47.1 Bronchiectasis with (acute) exacerbation (principal); J10.1 Influenza due to other identified influenza virus with other respiratory manifestations; B95.3 Streptococcus pneumoniae as the cause of diseases classified elsewhere; J45.40 Moderate persistent asthma, uncomplicated; I25.10 Atherosclerotic heart disease of native coronary artery without angina pectoris; Z95.5 Presence of coronary angioplasty implant and graft; N40.0 Benign prostatic hyperplasia without lower urinary tract symptoms; I10 Essential (primary) hypertension; E78.5 Hyperlipidemia, unspecified; F41.9 Anxiety disorder, unspecified; Z87.891 Personal history of nicotine dependence; Z85.048 Personal history of other malignant neoplasm of rectum, rectosigmoid junction, and anus; Z90.49 Acquired absence of other specified parts of digestive tract; Z66 Do not resuscitate; Z79.899 Other long term (current) drug therapy; Z99.81 Dependence on supplemental oxygen; Z79.02 Long term (current) use of antithrombotics/antiplatelets
CPT/HCPCS: 36415; 71046; 80048; 84484; 85025; 87070; 87077; 87186; 87205; 87804; 93005; 94640; 94667; 97162; 97165; 99251; 99285; J7030; A4216; G0463

== ENCOUNTER → 2019-12-05 12:52 | Outpatient (CLI) | payer MEDICARE, OTHER, SELFPAY ==
[2019-07-13 09:17] VITALS: BMI 26.6
--- NOTE | 2019-12-05 14:54 | PFTCOMP_ITS ---
COMPLETE PULMONARY FUNCTION TEST INTERPRETATION Brief HPI: Patient is a 74 year old male, currently under the care of myself, who presents to [facility] for complete pulmonary function tests secondary to diagnosis of COPD. Respiratory therapist reports good effort and reproducible results. Interpretation: Forced expiration spirometry shows a moderate large airways obstructive ventilatory defect with an FEV1 of 64% predicted. There is no significant bronchodilator response by strict ATS criteria. Spirograms are of good quality and plateau slowly, indicating slowly emptying areas of the lungs. The respiratory flow volume loop shows decreased expiratory flow rates at all lung volumes consistent with airway obstruction. Lung volumes by body plethysmography show an elevated total lung capacity at 6.88 L, 120% predicted. All other lung volumes are increased symmetrically. Diffusion capacity by carbon monoxide is decreased at 41% predicted. The airway resistance is normal. Compared to previous pulmonary function tests from 01/03/2019, there has been no significant change. Impression: Irreversible moderate large airways obstructive ventilatory defect with a symmetric reduction diffusing capacity, but no change compared to 2019.
== END ==
PROVIDERS: PCP Family Medicine; Referring Provider Nurse Practitioner Acute Care; Visit Provider Nurse Practitioner Acute Care
DX: J44.9 Chronic obstructive pulmonary disease, unspecified (principal)
CPT/HCPCS: 94060; 94726; 94729

== ENCOUNTER → 2020-01-31 | Outpatient (CLI) | payer MEDICARE, OTHER, SELFPAY ==
[2019-12-11 13:12] VITALS: BMI 26.6
[2020-01-31 15:07] LABS: Bacteria 0 SEEN /hpf (None Seen); Mucous, Urine 0 SEEN /hpf (<or=2+); Red Blood Cells-Urine 0 SEEN /hpf (0-5); Squamous Epithelial Cells - UA 0 SEEN /hpf (0-5)
[2020-01-31 16:46] LABS: Color, Urine Yellow (Yellow); Glucose, Dipstick Normal (Normal); Ketone-Dipstick Negative (Negative); Leukocyte Esterase-Dipstick 25 /ul (Negative); Nitrite-Dipstick Negative (Negative); Occult Blood-Urine Negative /ul (Negative); Protein-Dipstick Negative (Negative); Urine Bilirubin Dipstick Negative (Negative); Urine Clarity Clear (Clear); Urine Urobilinogen Normal (Normal)
[2020-01-31 16:53] LABS: Absolute Lymphocyte Count 1.16 X10^3/uL (0.83-4.51); Absolute Neutrophil Count 5.2 X10^3/uL (2.0-7.7); Basophil% 1.3 % (0-1); Eosinophil# 0.69 X10^3/uL; Eosinophils% 8.8 % (0-5); Hematocrit 37.8 % (40-54); Hemoglobin 11.7 g/dL (13.0-16.5); Lymphocyte # 1.16 X10^3/ul (4.0); Lymphocyte % 14.9 % (19-41); Mean Corpuscular Hgb 26.8 pg (27.0-32.0); Mean Corpuscular Volume 86.7 fL (80-94); Mean Platelet Vol. 10.8 fl (6.2-12.0); Monocyte# 0.59 X10^3/uL; Monocyte% 7.6 % (0-10); NRBC Flagged by Analyzer 0 % (0-5); Neutrophil # 5.24 X10^3/uL (2.7-7.7); Neutrophil % 67.1 % (47-70); Platelet Count 407 K/mm3 (150-450); RBC Distribution Width CV 14.7 % (11.6-14.6); RBC Distribution Width SD 46.8 fl (35.1-43.9); Red Blood Count 4.36 M/mm3 (4.6-6.2); White Blood Count 7.8 K/mm3 (4.4-11.0)
[2020-01-31 17:03] LABS: Anion Gap 3 (5-15); BUN 23 mg/dL (7-18); BUN/Creat Ratio 16.3 RATIO (10-20); Calcium,Total 9.1 mg/dL (8.5-10.1); Chloride 110 mmol/L (98-107); Creatinine, Serum 1.41 mg/dL (0.70-1.30); EST Glomerular Filtration Rate 52 mL/min (>60); Est Glom Filt Rate - Afr Amer 63 mL/min (>60); Glucose 95 mg/dL (74-106); Iron 29 ug/dL (65-175); Potassium 3.6 mmol/L (3.5-5.1); Sodium Level 141 mmol/L (136-145); Thyroid Stim Hormone (TSH) 1.37 uIU/mL (0.358-3.74)
[2020-01-31 17:11] LABS: White Blood Cells 0-5 SEEN /hpf (0-5)
== END | disposition home or self-care (01) ==
LOC: BFHLAB 15:05
PROVIDERS: PCP Family Medicine; Visit Provider Family Medicine
DX: I12.9 Hypertensive chronic kidney disease with stage 1 through stage 4 chronic kidney disease, or unspecified chronic kidney disease (principal); M18.9 Osteoarthritis of first carpometacarpal joint, unspecified; D63.1 Anemia in chronic kidney disease; F41.9 Anxiety disorder, unspecified; R10.9 Unspecified abdominal pain
CPT/HCPCS: 36415; 80048; 81001; 83540; 84443; 85025

== ENCOUNTER → 2020-03-04 13:09 | Outpatient (CLI) | payer MEDICARE, OTHER, SELFPAY ==
[2019-12-11 13:12] VITALS: BMI 26.6
[2020-03-04 13:29] LABS: Absolute Lymphocyte Count 1.31 X10^3/uL (0.83-4.51); Absolute Neutrophil Count 5.6 X10^3/uL (2.0-7.7); Basophil# 0.08 X10^3/uL; Eosinophil# 0.74 X10^3/uL; Eosinophils% 8.9 % (0-5); Hemoglobin 13.1 g/dL (13.0-16.5); Lymphocyte # 1.31 X10^3/ul (4.0); Lymphocyte % 15.8 % (19-41); Mean Corp Hgb Conc 31.2 g/dL (32-36); Mean Corpuscular Hgb 27.3 pg (27.0-32.0); Mean Corpuscular Volume 87.7 fL (80-94); Mean Platelet Vol. 10.9 fl (6.2-12.0); Monocyte# 0.57 X10^3/uL; Monocyte% 6.9 % (0-10); NRBC Flagged by Analyzer 0 % (0-5); Neutrophil # 5.58 X10^3/uL (2.7-7.7); Neutrophil % 67.2 % (47-70); Platelet Count 357 K/mm3 (150-450); RBC Distribution Width CV 14.7 % (11.6-14.6); RBC Distribution Width SD 47.3 fl (35.1-43.9); Red Blood Count 4.79 M/mm3 (4.6-6.2); White Blood Count 8.3 K/mm3 (4.4-11.0)
[2020-03-04 13:39] LABS: Anion Gap 7 (5-15); BUN 17 mg/dL (7-18); BUN/Creat Ratio 11.2 RATIO (10-20); Calcium,Total 9.4 mg/dL (8.5-10.1); Chloride 108 mmol/L (98-107); Creatinine, Serum 1.52 mg/dL (0.70-1.30); EST Glomerular Filtration Rate 48 mL/min (>60); Est Glom Filt Rate - Afr Amer 58 mL/min (>60); Glucose 112 mg/dL (74-106); Iron 37 ug/dL (65-175); Potassium 3.9 mmol/L (3.5-5.1); Sodium Level 143 mmol/L (136-145)
== END ==
PROVIDERS: PCP Family Medicine; Referring Provider Family Medicine; Visit Provider Family Medicine
DX: N18.9 Chronic kidney disease, unspecified (principal); D50.9 Iron deficiency anemia, unspecified
CPT/HCPCS: 36415; 80048; 83540; 85025

== ENCOUNTER → 2020-05-01 15:29 | Outpatient (CLI) | payer MEDICARE, OTHER, SELFPAY ==
[2020-04-22 13:02] VITALS: BMI 25.9
--- NOTE | 2020-05-01 15:32 | CT_ITS ---
STUDY: CT ABDOMEN AND PELVIS WITHOUT CONTRAST REASON FOR EXAM: Male, 75 years old. HX COLON CA IN 2007, EPIGASTRIC PAIN OFF AND ON FOR YEARS. PRIOR APPENDECTOMY,COLON RESECTION AND UMBILICAL RESECTION. COMPARE TO 08/12/2009 RADIATION DOSAGE (If Supplied By Facility): CTDIvol = ( 6.78 ) mGy, DLP = ( 404.50 ) mGycm TECHNIQUE: Transaxial images were obtained from the dome of the diaphragm to the symphysis pubis without oral contrast, and without intravenous contrast. Sagittal and coronal images were reconstructed. Individualized dose optimization techniques were used for this CT. COMPARISON: 08/12/2009 FINDINGS: The visualized lung bases are unremarkable. The visualized portions of the heart are within normal limits. Normal liver. Normal gallbladder and extrahepatic biliary system. Normal spleen. Normal pancreas. Normal bilateral adrenal glands. Normal right kidney. Normal left kidney. There is a small hiatal hernia. Normal small intestine. Suture line in the sigmoid colon. There are surgical clips in the region of the appendix consistent with a prior appendectomy. Interval increase in the size of the aneurysm of the infrarenal abdominal aorta from 3.0 cm diameter 6.0 cm in diameter. Normal inferior vena cava. Normal retroperitoneum. Normal urinary bladder. Small left inguinal hernia containing incarcerated loop of small bowel but without bowel obstruction. Normal osseous structures. CT/Abdomen/Pel W ORAL Cont Only IMPRESSION: 1. No CT evidence of residual, recurrent, or metastatic colonic carcinoma. 2. Interval increase in the abdominal aortic aneurysm from 3.0 cm diameter 6.0 cm in diameter. 3. Small hiatal hernia. 4. Small left inguinal hernia containing a loop small bowel but without bowel obstruction. Electronically Signed: Qamar Bob MD at 7:21 EST Tel , Service support ,
== END ==
PROVIDERS: PCP Internal Medicine; Referring Provider Internal Medicine; Visit Provider Internal Medicine
DX: R10.13 Epigastric pain (principal); Z85.038 Personal history of other malignant neoplasm of large intestine
CPT/HCPCS: 74176

== ENCOUNTER → 2020-05-17 11:00 | Outpatient (CLI) | payer MEDICARE, OTHER, SELFPAY ==
[2020-05-09 15:36] VITALS: BMI 26.3
== END ==
PROVIDERS: PCP Internal Medicine; Referring Provider Internal Medicine; Visit Provider Surgery
DX: Z20.828 Contact with and (suspected) exposure to other viral communicable diseases (principal)
CPT/HCPCS: 87426; C9803

== ENCOUNTER → 2020-05-22 05:46 | Outpatient (CLI) | payer MEDICARE, OTHER, SELFPAY ==
[2020-05-15 08:13] VITALS: BMI 25.3
--- NOTE | 2020-05-22 06:01 | ECHOD_ITS ---
Reason For Study: CAD/ASHD Procedure This was a 2D Doppler, Color Flow transthoracic echocardiogram. Exam performed in department. Left Ventricle Normal LV size. Left ventricular systolic function is normal. The estimated ejection fraction is 55 %. Stage 1 diastolic dysfunction. No regional wall motion abnormalities noted. Right Ventricle Normal RV size. Normal systolic function. Atria Normal left atrium. Normal right atrium. Mitral Valve Mild focal mitral valve calcification of the anterior leaflet. Trivial eccentric mitral valve insufficiency. Tricuspid Valve Normal tricuspid valve. Mild tricuspid valve insufficiency. Pulmonary artery systolic pressure is 30 mmHg. Aortic Valve Trisinus/trileaflet aortic valve. Mild diffuse aortic valve thickening. Pulmonic Valve Normal pulmonic valve. Great Vessels Normal aortic root. The pulmonary artery is normal size. Normal inferior vena cava. Pericardium/Pleural No pericardial effusion. MMode/2D Measurements & Calculations LVIDd: 3.8 cm IVSd: 1.3 cm Ao root diam: 3.0 cm LVIDs: 2.0 cm LVPWd: 0.86 cm RVDd: 3.6 cm FS: 47.6 % LAV(MOD-bp): 25.9 ml LVAd ap4: 25.5 cm2 SV(MOD-sp4): 41.5 ml LAV(MOD-bp) Indexed: 13.9 ml/m2 EDV(MOD-sp4): 68.9 ml LAV(MOD-sp2): 26.2 ml EDV(sp4-el): 70.6 ml LAV(MOD-sp4): 22.1 ml LVAs ap4: 14.5 cm2 ESV(MOD-sp4): 27.4 ml ESV(sp4-el): 27.1 ml EF(MOD-sp4): 60.3 % EF(sp4-el): 61.6 % SV(sp4-el): 43.5 ml LA A4 area: 9.9 cm2 LA dimension(2D): 3.3 cm RA A4 area: 9.6 cm2 Doppler Measurements & Calculations MV E max giovanny: 54.0 cm/sec Lat Peak E' Giovanny: 7.7 cm/sec Med Peak E' Giovanny: 5.4 cm/sec MV A max giovanny: 71.0 cm/sec E/E' lat: 7.0 E/E' med: 10.1 MV E/A: 0.76 Ao V2 max: 125.5 cm/sec LV V1 max: 103.0 cm/sec PA V2 max: 89.3 cm/sec Ao max P.3 mmHg LV V1 max P.2 mmHg Ao V2 mean: 84.0 cm/sec Ao mean P.1 mmHg Ao V2 VTI: 22.8 cm TR max giovanny: 255.0 cm/sec TR max P.0 mmHg Interpretation Summary Normal LV size. Left ventricular systolic function is normal. The estimated ejection fraction is 55 %. Stage 1 diastolic dysfunction. Pulmonary artery systolic pressure is 30 mmHg. Ordering Physician: Christiano Steinberg Referring Physician: Krystyna Sanchez Performed By: Tatiana Espinoza, RDCS, RVT
--- NOTE | 2020-05-22 09:15 | STRESSREP ---
Stress Test Report Pharmacologic myocardial perfusion stress test. 75-year-old man with a history of previous inferior wall myocardial infarction and drug-eluting stent to the LAD, circumflex artery, obtuse marginal branch and the right coronary artery. Stress protocol: Resting EKG demonstrates normal sinus rhythm with a rate of 74 bpm normal intervals are noted resting blood pressure is 124/70 mmHg. 0.4 mg of regadenoson was infused per usual protocol followed by rapid intravenous saline flush injection continuous EKG monitoring was performed. The patient maintained sinus rhythm throughout the recording. The maximum heart rate attained was 97 bpm which was 67% of max impacted heart rate in the maximum workload was 1 metabolic equivalent. At rest there were no ST or T wave changes noted to suggest abnormal flow reserve. The final blood pressure was 136/72 mmHg. The test was terminated due to completion of the protocol. Myocardial perfusion protocol. 11.7 mCi of technetium 99m sestamibi was injected at rest. 0.4 mg of regadenoson was infused per usual protocol. At peak infusion 32.8 mCi of technetium 99m sestamibi was injected stress images were obtained stress and rest images were reconstructed and compared in the short axis vertical long horizontal long axis. Gated images were also obtained Perfusion SPECT analysis: Review of the stress images demonstrate normal perfusion noted in the septum anterior wall and lateral wall. There is a medium to large size defect noted involving the inferior wall on the stress images with improvement in the perfusion size on the resting images suggesting a moderate amount of inferior ischemia. A previous infarct in the inferior wall is also present. Gated SPECT analysis: The gated ejection fraction is 55%. Conclusion: Abnormal pharmacologic myocardial perfusion stress test with evidence of previous inferior infarct. Mid inferior and inferoapical ischemia present. Preserved ejection fraction.
== END ==
PROVIDERS: PCP Internal Medicine; Referring Provider Internal Medicine Cardiovascular Disease; Visit Provider Internal Medicine Cardiovascular Disease
DX: I25.10 Atherosclerotic heart disease of native coronary artery without angina pectoris (principal); Z95.5 Presence of coronary angioplasty implant and graft
CPT/HCPCS: 78452; 93017; 93306; A9500; A4216; J2785

== ENCOUNTER 2020-05-24 06:31 | Day surgery (SDC) | payer MEDICARE, OTHER, SELFPAY ==
[2020-05-15 08:13] VITALS: BMI 25.3
--- NOTE | 2020-05-22 15:12 | RAD_ITS ---
STUDY: X-RAY CHEST REASON FOR EXAM: Male, 75 years old. PT TO HAVE STENT PLACED ON WEDNESDAY, CAD, INFERIOR SD, AAA TECHNIQUE: Frontal and lateral views COMPARISON: 06/29/2019 FINDINGS: The lungs are hyperaerated with mild interstitial prominence. There is no demonstrated pleural abnormality. Normal size heart. Normal mediastinum and nya. Normal visualized pulmonary arteries. Calcified aortic arch and descending thoracic aorta. Normal visualized thoracic spine. Normal visualized ribs, clavicles, and shoulders. There is no demonstrated abnormality of the visualized soft tissue structures of the upper abdomen. RAD/Chest PA and Lateral IMPRESSION: Hyperaeration with interstitial prominence. Electronically Signed: Humberto Hahn DO at 23:05 EST Tel [phone], Service support ,
[2020-05-22 15:17] LABS: Hematocrit 40.5 % (40-54); Hemoglobin 12.7 g/dL (13.0-16.5); Mean Corp Hgb Conc 31.4 g/dL (32-36); Mean Corpuscular Hgb 27.1 pg (27.0-32.0); Mean Corpuscular Volume 86.5 fL (80-94); Mean Platelet Vol. 10.3 fl (6.2-12.0); Platelet Count 397 K/mm3 (150-450); RBC Distribution Width CV 15.1 % (11.6-14.6); RBC Distribution Width SD 48.3 fl (35.1-43.9); Red Blood Count 4.68 M/mm3 (4.6-6.2); White Blood Count 8.3 K/mm3 (4.4-11.0)
[2020-05-22 16:03] LABS: Anion Gap 5 (5-15); BUN 22 mg/dL (7-18); BUN/Creat Ratio 16.1 RATIO (10-20); Calcium,Total 9.4 mg/dL (8.5-10.1); Chloride 108 mmol/L (98-107); Creatinine, Serum 1.37 mg/dL (0.70-1.30); EST Glomerular Filtration Rate 54 mL/min (>60); Est Glom Filt Rate - Afr Amer 65 mL/min (>60); Glucose 96 mg/dL (74-106); Sodium Level 140 mmol/L (136-145)
[2020-05-23 08:59] VITALS: BMI 25.3
--- NOTE | 2020-05-24 08:38 | CL.D_ITS ---
Patient Name: BETTE ASTORGA Study Date: 05/24/2020 Performing: Christiano Steinberg MD Ht: 67 inches 170 cm : 1945 Wt: 161.1 lbs 73 kg Age: 75 Gender: male BSA: 1.84 PROCEDURE(S) PERFORMED [id number]/LV CLINICAL PROFILE AND INDICATIONS Indications: Suspected CAD Heart Failure: None Stress/Imaging Date: 05/22/20ress Test with SPECT MPI: Positive Intermediate Risk CAD Presentations: Stable angina. CONCLUSIONS Severe triple-vessel disease with stenosis noted in the LAD and the previously placed stent, mid repo rt stent of the circumflex artery, [place] left circumflex artery in 2 areas mid and distal, right cor onary artery, totally occluded distal right coronary artery with [id number] collaterals, preserved ejection fraction. RECOMMENDATIONS Surgery consult for coronary revascularization DESCRIPTION OF PROCEDURE The patient arrived to the procedure lab. The risks and benefits of the procedure as well as a full d escription of our services here and current unavailability of surgical backup were fully explained to the patient and/or their significant other prior to the catheterization. The Timeout was completed, verifying the correct patient and procedure. The patient's procedural site was prepped and draped in the usual fashion. Local anesthetic was given subcutaneously to right radial region with Lidocaine 2% . Using a modified Seldinger technique, arterial access was obtained via the right radial artery, a 6 Fr sheath was inserted. Left Coronary Artery selective angiography was performed in multiple views u sing a 5 Fr. 4.0 [place] catheter. Right Coronary Artery selective angiography was then performed in mu ltiple views using a 5 Fr. 4.0 [place] catheter. Left Ventriculography was performed in MOORE projection using a 5 Fr. [place] catheter. LV to AO pullback pressures were then recorded.The arterial sheath was pulled and a TR Band was applied for hemostasis w/ 13ml air CORONARY ANGIOGRAPHY DOMINANCE: Right Dominant LEFT HEART ASSESSMENT Left Ventricular Ejection Fraction: by LV Gram 60 % Normal LV wall motion Normal Left Ventricular systolic function LEFT MAIN: Mild calcification, Non-obstructive LEFT ANTERIOR DESCENDING ARTERY: PROX LAD: Mild luminal irregularities less than 30% MID LAD: Previously placed stent has an instent 80 % restenosis DISTAL LAD: Mild luminal irregularities CIRCUMFLEX ARTERY: PROX CIRC: Previously placed stent is patent, 80 % Stenosis MID CIRC: 95 % Stenosis OM 1: Proximal - Mild luminal irregularities OM 2: Proximal - Mild luminal irregularities OM 3: Mid - 90 % Stenosis RIGHT CORONARY ARTERY: PROX RCA: 95 % Stenosis MID RCA: Previously placed stent has an instent 90 % restenosis RT PLV: is occluded RT PDA: Mid - Mild luminal irregularities COLLATERAL FLOW: Collateral flow from Left to Right COMPLICATIONS No Complications PROCEDURE MEDICATIONS Versed 1 mg IV Fentanyl 50 mcg IV Oxygen: 2 L/min via nasal cannula Heparin diluted in 23cc Heparinized saline. Patient given 10cc IA of this solution. 05/24/2020 08:04: 09 Verapamil 2.5mg, Ntg 100mcgs, 2000 units of Heparin diluted in 23cc Heparinized saline. Patient give n 10cc IA of this solution. 05/24/2020 08:04:09 SUMMARY OF HEMODYNAMIC DATA Time AIR REST ECG 07:04:08 AO 128/64 (85) SA 08:06:27 AO 116/66 (89) 08:08:33 LV 120/7, 14 08:18:32 LV 119/6, 11 08:18:38 LV 122/9, 14 08:19:22 LVp 128/9, 15 08:19:26 AOp 138/66 (96) 08:19:31 08:30:48 Signed By Christiano Steinberg MD On 05/24/2020 08:36:50 Christiano Steinberg MD
== END 2020-05-24 10:30 | disposition home or self-care (01) ==
LOC: CLSP 06:33
PROVIDERS: PCP Internal Medicine; Referring Provider Internal Medicine Cardiovascular Disease; Visit Provider Internal Medicine Cardiovascular Disease
DX: I25.118 Atherosclerotic heart disease of native coronary artery with other forms of angina pectoris (principal); I25.82 Chronic total occlusion of coronary artery; I25.2 Old myocardial infarction; I10 Essential (primary) hypertension; E78.5 Hyperlipidemia, unspecified; I71.4 Abdominal aortic aneurysm, without rupture; J44.9 Chronic obstructive pulmonary disease, unspecified; N40.0 Benign prostatic hyperplasia without lower urinary tract symptoms; Z95.5 Presence of coronary angioplasty implant and graft; Z87.891 Personal history of nicotine dependence; E61.1 Iron deficiency
CPT/HCPCS: 36415; 71046; 80048; 85027; 93458; 99152; 99153; J7040; Q9967; C1769; C1894

== ENCOUNTER → 2020-06-03 13:50 | Outpatient (CLI) | payer MEDICARE, OTHER, SELFPAY ==
[2020-05-28 14:01] VITALS: BMI 25.8
--- NOTE | 2020-06-03 13:53 | CDU_ITS ---
Reason For Study: CAD Rt. Velocities/BP Lt. Velocities/BP Prox CCA 62/9 cm/sec. Prox CCA 70/14 cm/sec. Mid CCA 73/14 cm/sec. Mid CCA 61/18 cm/sec. Dist CCA 58/13 cm/sec. Dist CCA 65/12 cm/sec. Prox ICA 50/12 cm/sec. Prox ICA 167/49 cm/sec. Mid ICA 37/13 cm/sec. Mid ICA 123/38 cm/sec. Dist ICA 49/18 cm/sec. Dist ICA 126/38 cm/sec. Rt. ICA/CCA = .8. Lt. ICA/CCA = 2.6. Prox ECA 74/8 cm/sec. Prox ECA 71/11 cm/sec. Rt. Vert. 42/11 cm/sec. Lt. Vert. 45/18 cm/sec. Right Extracranial There is homogeneous, smooth atherosclerotic plaque noted in the right common carotid artery. There is heterogeneous, smooth atherosclerotic plaque noted in the right internal carotid artery. There is no significant atherosclerotic plaque noted in the right external carotid artery. Antegrade flow is noted in the right vertebral artery. Left Extracranial There is homogeneous, smooth atherosclerotic plaque noted in the left common carotid artery. There is homogeneous, irregular atherosclerotic plaque noted in the left internal carotid artery. The left internal carotid artery is very tortuous. There is homogeneous, smooth atherosclerotic plaque noted in the left external carotid artery. Antegrade flow is noted in the left vertebral artery. Procedure Carotid Duplex 66735. Technically difficult Left ICA due to tortuosity. Exam performed in department. Interpretation Summary Minimal smooth heterogenous plaque at the proximal right internal carotid artery with less than 50% stenosis Less than 50% stenosis right external carotid artery Homogeneous irregular plaque in the proximal left internal carotid. The left internal carotid is noted to be very tortuous with kinking. Velocities are elevated at 167 cm/s peak systolic flow with an end-diastolic velocity of 49. This would be consistent with 50 to 69% stenosis however the tight tortuosity may be artificially elevating this estimation Less than 50% stenosis left external carotid artery Patent and antegrade vertebrals bilaterally Ordering Physician: RODRICK ZAPATA Referring Physician: Krystyna Sanchez Performed By: Edil VILLA RVT, Carrie and Student
--- NOTE | 2020-06-03 14:29 | CT_ITS ---
STUDY: CT CHEST WITHOUT CONTRAST REASON FOR EXAM: Male, 75 years old. Ascending aortic calcification evaluation, smoked 1.5 packs per day x 40 years, quit 25 years ago, hypertension. RADIATION DOSAGE (If Supplied By Facility): CTDIvol = ( 10.08 ) mGy, DLP = ( 372.73 ) mGycm TECHNIQUE: Transaxial imaging was performed without the administration of intravenous contrast material. Multiplanar coronal and sagittal images were reformatted. Individualized dose optimization techniques were used for this CT. COMPARISON: None. FINDINGS: Hyperinflation. There is evidence of the emphysematous changes with bullous formation worse in the upper lobes. Minimal linear scarring at the lung apices. There is no demonstrated pleural abnormality. There are calcifications of the coronary arteries. Minimal anterior pericardial effusion. There are multiple small lymph nodes within the mediastinum, which are normal in size and morphology most compatible with reactive lymph hyperplasia. Normal hilar regions. Normal unenhanced pulmonary arteries. There is atherosclerotic calcification of the aortic arch with tortuosity and elongation of the aortic arch and descending thoracic aorta. Atherosclerotic calcification of the descending thoracic aorta as it becomes the aortic arch. Normal osseous structures. There is no demonstrated abnormality of the visualized upper abdomen. CT/Chest without Contrast IMPRESSION: Hyperinflation. Emphysematous changes with bullous formation worse in the upper lobes. Atherosclerotic calcification of the ascending thoracic aorta as well as the aortic arch and descending thoracic aorta. Electronically Signed: Baljeet Thurman MD at 8:47 EST , Service support ,
== END ==
PROVIDERS: PCP Internal Medicine
DX: I25.10 Atherosclerotic heart disease of native coronary artery without angina pectoris (principal); I71.4 Abdominal aortic aneurysm, without rupture; R09.89 Other specified symptoms and signs involving the circulatory and respiratory systems
CPT/HCPCS: 71250; 93880

== ENCOUNTER → 2020-06-12 14:29 | Outpatient (CLI) | payer MEDICARE, OTHER, SELFPAY ==
[2020-06-12 13:38] VITALS: BMI 25.5
[2020-06-12 15:20] LABS: Hematocrit 39.4 % (40-54); Hemoglobin 12.2 g/dL (13.0-16.5); Mean Corpuscular Hgb 27.1 pg (27.0-32.0); Mean Corpuscular Volume 87.6 fL (80-94); Mean Platelet Vol. 10.3 fl (6.2-12.0); Platelet Count 391 K/mm3 (150-450); RBC Distribution Width CV 14.6 % (11.6-14.6); RBC Distribution Width SD 47.1 fl (35.1-43.9); White Blood Count 7.7 K/mm3 (4.4-11.0)
[2020-06-12 15:55] LABS: ALB/GLOB Ratio 1.2 RATIO (0.9-2.4); AST(SGOT) 13 U/L (15-37); Alanine Aminotransfer ALT/SGPT 16 U/L (16-61); Albumin, Serum 3.8 g/dL (3.2-5.0); Alkaline Phosphatase 90 U/L (45-117); Anion Gap 7 (5-15); BUN 18 mg/dL (7-18); BUN/Creat Ratio 13.7 RATIO (10-20); Calcium,Total 9.6 mg/dL (8.5-10.1); Chloride 106 mmol/L (98-107); Creatinine, Serum 1.31 mg/dL (0.70-1.30); EST Glomerular Filtration Rate 57 mL/min (>60); Est Glom Filt Rate - Afr Amer 68 mL/min (>60); Globulin 3.3 g/dL (2.2-4.2); Glucose 92 mg/dL (74-106); Potassium 3.6 mmol/L (3.5-5.1); Protein, Total 7.1 g/dL (6.4-8.2); Sodium Level 139 mmol/L (136-145)
== END ==
PROVIDERS: PCP Internal Medicine; Referring Provider Surgery; Visit Provider Surgery
DX: I25.10 Atherosclerotic heart disease of native coronary artery without angina pectoris (principal); Z95.5 Presence of coronary angioplasty implant and graft
CPT/HCPCS: 36415; 80053; 85027

== ENCOUNTER → 2020-06-12 15:21 | Outpatient (CLI) | payer MEDICARE, OTHER, SELFPAY ==
[2020-06-12 13:38] VITALS: BMI 25.5
== END ==
PROVIDERS: PCP Internal Medicine; Referring Provider Nurse Practitioner Acute Care; Visit Provider Nurse Practitioner Acute Care
DX: R06.02 Shortness of breath (principal); I25.10 Atherosclerotic heart disease of native coronary artery without angina pectoris; Z95.5 Presence of coronary angioplasty implant and graft
CPT/HCPCS: 36415; 80053; 85027; 87635; C9803; U0005; U0003

== ENCOUNTER 2020-06-25 05:33 | Inpatient (IN) | payer MEDICARE, OTHER, SELFPAY ==
[2020-06-12 13:38] VITALS: BMI 25.5
[2020-06-25] VITALS (19 sets, daily range): BP systolic 101–150; BP diastolic 54–85; PULSE 43–90; RESP 12–26; TEMP 31.7–36.7; O2SAT 93–99; BMI 25.6
[2020-06-25] MEDS: Lactated Ringers 1,000 ML 100 ML IV (06:14)
--- NOTE | 2020-06-25 06:16 | HP.PCM_ITS ---
Problem List (1) Abdominal aortic aneurysm (AAA) greater than 5.5 cm in diameter in male Status: Chronic History and Physical Date of Admission: 06/25/20 Visit Reasons: AAA REPAIR Chief Complaint: discuss AAA Manager Orange Required: No Is patient in pain?: No Allergies aspirin Allergy (Verified 06/12/20 13:39) Shortness of breath adhesive Adverse Reaction (Verified 06/12/20 13:39) Rash amoxicillin trihydrate [From Augmentin] Adverse Reaction (Verified 06/12/20 13:39) Other atorvastatin calcium [From Lipitor] Adverse Reaction (Verified 06/12/20 13:39) Unknown metoprolol succinate [From Toprol XL] Adverse Reaction (Verified 06/12/20 13:39) Rash naproxen [From Naprosyn] Adverse Reaction (Verified 06/12/20 13:39) Shortness of breath paroxetine HCl [From Paxil] Adverse Reaction (Verified 06/12/20 13:39) Unknown potassium clavulanate [From Augmentin] Adverse Reaction (Verified 06/12/20 13:39) Unknown propoxyphene HCl [From Darvon] Adverse Reaction (Verified 06/12/20 13:39) Unknown sertraline HCl [From Zoloft] Adverse Reaction (Verified 06/12/20 13:39) Unknown simvastatin [From Zocor] Adverse Reaction (Verified 06/12/20 13:39) Unknown tiotropium bromide [From Spiriva with HandiHaler] Adverse Reaction (Verified 06/12/20 13:39) Other RUBBING ALCOHOL Adverse Reaction (Uncoded 06/12/20 13:39) Rash Medications Clopidogrel Bisulfate [Plavix] 75 mg PO DAILY 02/14/13 [History Confirmed 06/12/20] Cholecalciferol (Vitamin D3) [Vitamin D3] 2,000 unit PO DAILY 06/29/19 [History Confirmed 06/12/20] Garlic 1,000 mg PO DAILY 06/29/19 [History Confirmed 06/12/20] Loperamide [Imodium] 2 mg PO Q2H PRN PRN 06/29/19 [History Confirmed 06/12/20] Red Rice Yeast 2 cap PO DAILY 06/29/19 [History Confirmed 06/12/20] Verapamil HCl [Verapamil ER] 120 mg PO QHS 06/29/19 [History Confirmed 06/12/20] budesonide 0.5 mg/2 mL suspension for nebulization 0.5 mg INHALATION Q12H #180 ml 07/20/19 [Rx Confirmed 06/12/20] ipratropium 20 mcg-albuterol 100 mcg/actuation mist for inhalation 2 puff INHALATION PRN PRN #4 g 12/11/19 [Rx Confirmed 06/12/20] formoterol fumarate 20 mcg/2 mL solution for nebulization 2 ml INHALATION Q12H #120 ml 01/17/20 [Rx Confirmed 06/12/20] tamsulosin 0.4 mg capsule 0.4 mg PO QHS #90 cap 04/22/20 [Rx Confirmed 06/12/20] fluticasone propionate 50 mcg/actuation nasal spray,suspension 1 spray INTRANASAL BID 05/09/20 [History Confirmed 06/12/20] [place]-3S/Dha/Epa/Fish Oil/D3 [Fish Uib-Ndkeq-8-Vit D Softgel] 1 ea PO DAILY 05/15/20 [History Confirmed 06/12/20] losartan 25 mg tablet 25 mg PO DAILY #60 tab 05/15/20 [Rx Confirmed 06/12/20] lorazepam 0.5 mg tablet 1.5 mg PO QHS PRN 30 Days #90 tab 06/11/20 [Rx Confirmed 06/12/20] [facility] Medical History 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) History of ST elevation myocardial infarction (STEMI) (Resolved 05/27/07) Essential (primary) hypertension (Chronic) Hyperlipidemia (Chronic) Abdominal aortic aneurysm (AAA) greater than 5.5 cm in diameter in male (Chronic) Left inguinal hernia (Chronic) Iron deficiency (Chronic) 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 classification (Chronic) Bronchiectasis (Suspected) Hypoxia (Chronic) Asthma (Chronic) History of colon cancer (Chronic) Insomnia (Chronic) Allergy to dog dander (Chronic) BPH (benign prostatic hyperplasia) (Chronic) COPD (chronic obstructive pulmonary disease) (Chronic) Personal history of other malignant neoplasm of rectum, rectosigmoid junction, and anus (Chronic) Short bowel syndrome (Chronic) Tachycardia (Chronic) Surgical History History of coronary artery stent placement (Resolved 05/30/07) History of heart artery stent (Acute ~06/2020) History of left heart catheterization (Resolved 05/24/20) History of right inguinal hernia repair (Resolved) History of tonsillectomy (Resolved) History of tonsillectomy and adenoidectomy (Resolved) Hx of appendectomy (Resolved) Hx of bilateral cataract extraction (Resolved) Hx of umbilical hernia repair (Resolved) Status post laparoscopic colectomy (Resolved) history of right eye surgery (Resolved) Family History Father Heart disease Hypertension High cholesterol CVA (cerebral vascular accident) Mother Dementia Social History (Updated 06/12/20 @ 13:[address] Sawyer Rodríguez MD) Smoking Status: Former smoker pack-years: 67 second hand exposure: No alcohol intake: never substance use type: does not use caffeine: Yes Type: coffee Number of servings: 4 what type of physical activity do you participate in: other details: pulmonary rehab frequency: 3-4 times per week HPI HPI HPI: BETTE ASTORGA, is a 75 M who presents to the office today for ongoing surgical consultation regarding a infrarenal abdominal aortic aneurysm. The patient was evaluated by Dr. Christiano Steinberg. He was felt to have multivessel atherosclerotic cardiovascular disease. He was referred for coronary bypass surgery. Unfortunately this could not be pursued secondary to a calcific thoracic aorta. On June 07, 2019 at [facility] patient had outpatient coronary catheterization via right radial approach. Coronary stents x5 placed. The patient is on appropriate oral therapy with inability to cease. He has follow-up scheduled on June 17, 2020. He has a history of stage III chronic renal insufficiency. He thinks he has some laboratory yet ordered. He is not aware of how much IV contrast he might of achieved during his diagnostic coronary arteriograms and then follow-up therapeutic coronary arteriograms. He also states that June tends to be a difficult month for him. The cold dry air tends to aggravate his COPD. He states that he has a follow-up appointment with HUMA Schwartz today. The patient has been seen by pulmonology CODY Callahan with the following assessment and recommendations A chest CT scan of June 03, 2020 demonstrated emphysematous cystic changes bilaterally Assessment & Plan 1. Moderate persistent asthma without complication J45.40 Plan No signs of exacerbation of asthma/COPD overlap syndrome today. No change in maintenance medications. No additional testing at this time. Contact the office with any signs of new or worsening symptoms. Follow-up in [address] Kessler. 2. 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 classification J44.9 Plan See assessment and plan for asthma. 3. 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 The patient reports to me today that he has an evaluation for possible open heart surgery for triple bypass. He is asking how his COPD affects his ability to have and recover from open heart surgery. We did discuss the possibility of him having higher requirements of supplemental oxygen following the procedure. We also discussed that he may require ventilation for support longer than typically would be anticipated. He conveys understanding. He was provided with most recent pulmonary function test and walking oximetry to take with him to his consultation. The patient has also had carotid duplex imaging with final results [facility] [address] [place] [address]. [place] [address] Carotid Duplex Ultrasound 06/03/20 1401 MR#: [id number] Name: BETTE ASTORGA [facility] #:[id number] : 1945 75From: Sawyer Rodríguez MD Attending Dr: ABDIEL ZAPATAEMStatus: REG CLI Ordering Dr: ABDIEL ZAPATAEMDate: 06/03/20 Location:CTSex: Admitted: Reason For Study: CAD Rt. Velocities/BP Lt. Velocities/BP Prox CCA 62/9 cm/sec. Prox CCA 70/14 cm/sec. Mid CCA 73/14 cm/sec. Mid CCA 61/18 cm/sec. Dist CCA 58/13 cm/sec. Dist CCA 65/12 cm/sec. Prox ICA 50/12 cm/sec. Prox ICA 167/49 cm/sec. Mid ICA 37/13 cm/sec. Mid ICA 123/38 cm/sec. Dist ICA 49/18 cm/sec. Dist ICA 126/38 cm/sec. Rt. ICA/CCA = .8. Lt. ICA/CCA = 2.6. Prox ECA 74/8 cm/sec. Prox ECA 71/11 cm/sec. Rt. Vert. 42/11 cm/sec. Lt. Vert. 45/18 cm/sec. Right Extracranial There is homogeneous, smooth atherosclerotic plaque noted in the right common carotid artery. There is heterogeneous, smooth atherosclerotic plaque noted in the right internal carotid artery. There is no significant atherosclerotic plaque noted in the right external carotid artery. Antegrade flow is noted in the right vertebral artery. Left Extracranial There is homogeneous, smooth atherosclerotic plaque noted in the left common carotid artery. There is homogeneous, irregular atherosclerotic plaque noted in the left internal carotid artery. The left internal carotid artery is very tortuous. There is homogeneous, smooth atherosclerotic plaque noted in the left external carotid artery. Antegrade flow is noted in the left vertebral artery. Procedure Carotid Duplex 98[address]. Technically difficult Left ICA due to tortuosity. Exam performed in department. Interpretation Summary Minimal smooth heterogenous plaque at the proximal right internal carotid artery with less than 50% stenosis Less than 50% stenosis right external carotid artery Homogeneous irregular plaque in the proximal left internal carotid. The left internal carotid is noted to be very tortuous with kinking. Velocities are elevated at 167 cm/s peak systolic flow with an end-diastolic velocity of 49. This would be consistent with 50 to 69% stenosis however the tight tortuosity may be artificially elevating this estimation Less than 50% stenosis left external carotid artery Patent and antegrade vertebrals bilaterally __ Ordering Physician: RODRICK ZAPATA Referring Physician: Krystyna Sanchez Performed By: Edil VILLA, Shirin SHEFFIELD and Student 06/03/20 5005 Date MyPrevious surgical evaluation notes of May demonstrate the following Intake Visit Reasons: EPIGASTRIC PAIN, ANEMIA, CSCOPE Allergies aspirin Allergy (Verified 05/07/20 13:17) Shortness of breath adhesive Adverse Reaction (Verified 05/07/20 13:17) Rash amoxicillin trihydrate [From Augmentin] Adverse Reaction (Verified 05/07/20 13:17) Other atorvastatin calcium [From Lipitor] Adverse Reaction (Verified 05/07/20 13:17) Unknown metoprolol succinate [From Toprol XL] Adverse Reaction (Verified 05/07/20 13:17) Rash naproxen [From Naprosyn] Adverse Reaction (Verified 05/07/20 13:17) Shortness of breath paroxetine HCl [From Paxil] Adverse Reaction (Verified 05/07/20 13:17) Unknown potassium clavulanate [From Augmentin] Adverse Reaction (Verified 05/07/20 13:17) Unknown propoxyphene HCl [From Darvon] Adverse Reaction (Verified 05/07/20 13:17) Unknown sertraline HCl [From Zoloft] Adverse Reaction (Verified 05/07/20 13:17) Unknown simvastatin [From Zocor] Adverse Reaction (Verified 05/07/20 13:17) Unknown tiotropium bromide [From Spiriva with HandiHaler] Adverse Reaction (Verified 05/07/20 13:17) Other RUBBING ALCOHOL Adverse Reaction (Uncoded 05/07/20 13:17) Rash Medications Clopidogrel Bisulfate [Plavix] 75 mg PO DAILY 02/14/13 [History Confirmed 05/07/20] Cholecalciferol (Vitamin D3) [Vitamin D3] 2,000 unit PO DAILY 06/29/19 [History Confirmed 05/07/20] Garlic 1,000 mg PO DAILY 06/29/19 [History Confirmed 05/07/20] Loperamide [Imodium] 2 mg PO Q2H PRN PRN 06/29/19 [History Confirmed 04/22/20] Red Rice Yeast 2 cap PO DAILY 06/29/19 [History Confirmed 05/07/20] Verapamil HCl [Verapamil ER] 120 mg PO QHS 06/29/19 [History Confirmed 05/07/20] budesonide 0.5 mg/2 mL suspension for nebulization 0.5 mg INHALATION Q12H #180 ml 07/20/19 [Rx Confirmed 05/07/20] ipratropium 20 mcg-albuterol 100 mcg/actuation mist for inhalation 2 puff INHALATION PRN PRN #4 g 12/11/19 [Rx Confirmed 05/07/20] formoterol fumarate 20 mcg/2 mL solution for nebulization 2 ml INHALATION Q12H #120 ml 01/17/20 [Rx Confirmed 05/07/20] tamsulosin 0.4 mg capsule 0.4 mg PO QHS #90 cap 04/22/20 [Rx Confirmed 05/07/20] lorazepam 0.5 mg tablet 1.5 mg PO QHS PRN #45 tab 04/25/20 [Rx Confirmed 05/07/20] PFSH Medical History Hypoxia (Chronic) Bronchiectasis (Suspected) Allergy to dog dander (Chronic) Asthma (Chronic) Short bowel syndrome (Chronic) BPH (benign prostatic hyperplasia) (Chronic) Personal history of other malignant neoplasm of rectum, rectosigmoid junction, and anus (Chronic) Tachycardia (Chronic) 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 classification (Chronic) History of colon cancer (Chronic) COPD (chronic obstructive pulmonary disease) (Chronic) Surgical History Hx of umbilical hernia repair (Acute) Hx of appendectomy (Acute) History of tonsillectomy and adenoidectomy (Acute) Hx of bilateral cataract extraction (Acute) Status post laparoscopic colectomy (Resolved) History of right inguinal hernia repair (Resolved) History of tonsillectomy (Resolved) History of coronary angioplasty (Chronic) Family History Father Heart disease Hypertension High cholesterol CVA (cerebral vascular accident) Mother Dementia Social History (Updated 05/07/20 @ 15:[address] Sawyer oRdríguez MD) second hand exposure: No alcohol intake: never substance use type: does not use caffeine: Yes Type: coffee Number of servings: 4 what type of physical activity do you participate in: other details: pulmonary rehab frequency: 3-4 times per week HPI HPI HPI: BETTE ASTORGA, is a 75 M who presents to the office today for surgical consultation regarding epigastric pain and anemia and newly diagnosed infrarenal abdominal aortic aneurysm. In addition the patient has a left inguinal hernia. The patient is referred by Dr. Sarah Wong and a written copy of my surgical consult and recommendations will be returned to him Patient is somewhat vague about his abdominal complaints. Upon trying to evaluate them he complains of the mid abdominal ache. After much questioning he admits that its been there for quite a period of time. He then states that he had a laparoscopic sigmoid colectomy in 2007 followed by chemoradiation. Claims he then had diarrhea was placed on Lomotil and that aggravated his abdominal discomfort. He states that eating food sometimes improves it. He states that moving his bowels sometimes improves it. He points to the generalized mid abdomen. He denies bright red blood per rectum or melena. He states that sometime ago may be he had some dark stool. He is not had any nausea or vomiting. For over a year he has had a known left inguinal hernia. He was supposed to have a left inguinal hernia repair done by another surgeon a year ago but he did not want to be taken to [facility]. The patient states that that left inguinal hernia has been present for least a year. He is aware that there is bowel involvement. He states that he is able to manipulate some of that back in. He states that it does not assist with his abdominal pain. He states that moving his bowels sometimes improves his abdominal ache. He complains of persistent diarrhea that is occurred ever since 2007 and his colectomy. The patient had a colonoscopy done by Dr. Piotr Laguna September 08, 2018 because of chronic diarrhea and a history of colon cancer. Low surgical anastomosis at 10 cm with some erythema of the colon was identified. Biopsies were obtained but on pathology they were not remarkable. Because of his abdominal pain Dr. Sarah Wong on May 01, 2020 got a oral contrasted abdominal pelvic CT scan. This demonstrates a small hiatal hernia. Evidence of her previous appendectomy. There is a 6 cm infrarenal abdominal aortic aneurysm. There is a left inguinal hernia with small bowel involvement but no evidence of strangulation. As of March 04, 2020 white blood cell count was 8.3 with a hemoglobin of 13.1 and a hematocrit of 42 and a platelet count 357,000 with a normal differential. BUN was 17 and creatinine 1.52 with a estimated GFR of 48. Potassium at that point was 3.9. Patient's had a previous laparoscopic sigmoid colectomy. Previous umbilical herniorrhaphy. Previous right inguinal herniorrhaphy via an open technique History of previous appendectomy In addition he has COPD and BPH and chronic renal insufficiency. [facility] Imaging Services [address] [place] [address] Abdomen/Pel W ORAL Cont Only MR#: [id number] Name: BETTE ASTORGA [facility] #:[id number] : 1945M 75 From: Qamar Bob MD PCP:Dr. Krystyna Sanchez MD Status:REG CLI Study:Abdomen/Pel W ORAL Cont Only Date of Exam:05/01/20 Exam#[id number] Ordering Dr: Sarah Wong MD STUDY: CT ABDOMEN AND PELVIS WITHOUT CONTRAST REASON FOR EXAM: Male, 75 years old. HX COLON CA IN 2007, EPIGASTRIC PAIN OFF AND ON FOR YEARS. PRIOR APPENDECTOMY,COLON RESECTION AND UMBILICAL RESECTION. COMPARE TO 08/12/2009 RADIATION DOSAGE (If Supplied By Facility): CTDIvol = ( 6.78 ) mGy, DLP = ( 404.50 ) mGycm TECHNIQUE: Transaxial images were obtained from the dome of the diaphragm to the symphysis pubis without oral contrast, and without intravenous contrast. Sagittal and coronal images were reconstructed. Individualized dose optimization techniques were used for this CT. COMPARISON: 08/12/2009 FINDINGS: The visualized lung bases are unremarkable. The visualized portions of the heart are within normal limits. Normal liver. Normal gallbladder and extrahepatic biliary system. Normal spleen. Normal pancreas. Normal bilateral adrenal glands. Normal right kidney. Normal left kidney. There is a small hiatal hernia. Normal small intestine. Suture line in the sigmoid colon. There are surgical clips in the region of the appendix consistent with a prior appendectomy. Interval increase in the size of the aneurysm of the infrarenal abdominal aorta from 3.0 cm diameter 6.0 cm in diameter. Normal inferior vena cava. Normal retroperitoneum. Normal urinary bladder. Small left inguinal hernia containing incarcerated loop of small bowel but without bowel obstruction. Normal osseous structures. CT/Abdomen/Pel W ORAL Cont Only IMPRESSION: 1. No CT evidence of residual, recurrent, or metastatic colonic carcinoma. 2. Interval increase in the abdominal aortic aneurysm from 3.0 cm diameter 6.0 cm in diameter. 3. Small hiatal hernia. 4. Small left inguinal hernia containing a loop small bowel but without bowel obstruction. Electronically Signed: Qamar Bob MD at 7:21 EST Tel , Service support , RUN DATE: 05/07/20 [facility], DEPARTMENT OF LABORATORIES PAGE 1 RUN TIME: 1259 Specimen Inquiry [address], [place], [address] PATIENT: BETTE ASTORGA LOC: LAB U #: [id number] : 1945 AGE/SX: 74/M FACILITY: [facility] ROOM: RE03/04/[address]: Dr. Juliano Calabrese MD STATUS:REG CLI BED: DIS: ~ SPEC #: [id number] SOLO: 03/04/20 STATUS: COMP REQ #: [id number] RECD: 03/04/[address]: Dr. Juliano Calabrese MD ENTERED: 03/04/20 [facility] DR: ~ Test Result Flag Adult Reference Range BMP GLU 112 H 74-106 mg/dL Fasting Glucose result from 100 to 125 mg/dL suggests IMPAIRED HOMEOSTASIS per A.D.A. criteria. Please note revised GLUCOSE reference range effective 06/04/2017. BUN 17 7-18 mg/dL CREAT,SERUM 1.52 H 0.70-1.30 mg/dL The validity of the calculated GFR & GFRAA in patients over 70 years has not been determined. Clinical correlation is essential. EST GFR 48 L >60 mL/min Non- GFR Calc EST GFR - AA 58 L >60 mL/min GFR Calc BUN/CRE 11.2 10-20 RATIO CA,Total 9.4 8.5-10.1 mg/dL NA 143 136-145 mmol/L Potassium 3.9 3.5-5.1 mmol/L CL 108 H 98-107 mmol/L CO2 28.0 21.0-32.0 mmol/L GAP 7 5-15 IRON 37 L 65-175 ug/dL HPI HPI HPI: BETTE ASTORGA, is a 75 M who presents to the office today for Exam Const General: cooperative, comfortable, no acute distress Nutritional Appearance: average body habitus Orientation: alert, awake HENCA Head: normal to inspection Neck Neck: normal visual inspection Carotids: normal carotid upstroke, no bruits Lymphatic: no lymphadenopathy noted Chest Other: Increased anterior posterior diameter Resp Auscultation: clear to auscultation bilaterally Other: Diminished respiratory excursion Cardio Rate: regular rate Rhythm: regular rhythm Other: Bilateral radials and brachials 3+. Bilateral femorals 3+ Bilateral popliteals 3+ GI Palpation: soft, no hepatosplenomegaly Other: Well-healed transverse infraumbilical incision from hernia repair. Well- healed vertical incision through the umbilicus for colectomy. Well-healed oblique right groin incision from remote right inguinal hernia repair Aortic aneurysm is palpable in the epigastrium, nontender, pulsatile/expansile Other: Solid right groin Obvious bowel involvement within a sizable left inguinal hernia. Mostly reducible. Nontender. Musc Other: Mild kyphosis Skin General: no rashes or lesions noted Neuro Cognition: normal cognition Extrem General: no calf tenderness Psych Affect: normal affect Assessment & Plan Problems 1. Generalized abdominal pain R10.84 2. Chronic obstructive pulmonary disease, unspecified COPD type J44.9 3. History of malignant neoplasm of colon Z85.038 4. Hx of umbilical hernia repair Z98.890; Z87.19 5. Abdominal aortic aneurysm (AAA) greater than 5.5 cm in diameter in male I71.4 6. Inguinal hernia of left side without obstruction or gangrene K40.90 7. Iron deficiency E61.1 Plan Complex 75-year-old gentleman. Iron deficiency noted March 04, 2020 with an iron level 37. Generalized abdominal pain. History of colon cancer. Left inguinal hernia with small bowel involvement. 6 cm infrarenal abdominal aortic aneurysm. His presentation is complicated by COPD and chronic renal insufficiency and BPH with outlet obstruction. In addition to his other medications he is on clopidogrel. I propose for him a esophagogastroduodenoscopy with possible biopsy or polypec hardeep and colonoscopy with possible biopsy or polypectomy as indicated looking for potential source of his generalized abdominal pain and or iron deficiency. He has had an opportunity to ask and have questions answered. I will leave him on his current medications. I will utilize monitored anesthesia care. The patient states that he had 3 coronary stents placed in 2007 when he had a myocardial infarction and that this was done prior to his colectomy. The patient states that he saw a compressed air pile driver operator maybe once in follow-up. That compressed air pile driver operator recommended that he be placed on a statin medication the patient states that he is intolerant. The patient states for at least the past decade he has not had cardiology follow-up. The patient is interested in obtaining cardiology consultation. We will assist with that referral to the [facility]. The patient does have COPD. He does have ongoing inhaler treatment for that. I believe that he would be a candidate for a abdominal aortic stent graft repair. This could be accomplished under monitored anesthesia care and local anesthetic. Find that he has the small bowel involving the left inguinal hernia. That could be in the future addressed with a left inguinal herniorrhaphy. Pending his ability to undergo a general anesthetic I could consider performing that laparoscopically taking care regarding adhesions located at the umbilicus. Of course a open approach could be undertaken as well. I would certainly want to make sure that all of the bowel got reduced. He has had an opportunity to ask and have questions answered. We will try to coordinate and expedite his care. Copy: Dr. Sarah Rodríguez M.D., F.A.C.S. Coding Level of Care Code 00219 Diagnoses Generalized abdominal pain R10.84 Abdominal location: generalized Chronic obstructive pulmonary disease, unspecified COPD type J44.9 COPD type: unspecified COPD History of malignant neoplasm of colon Z85.038 Hx of umbilical hernia repair Z98.890; Z87.19 Abdominal aortic aneurysm (AAA) greater than 5.5 cm in diameter in male I71.4 Inguinal hernia of left side without obstruction or gangrene K40.90 Iron deficiency E61.1 HPI HPI HPI: BETTE ASTORGA, is a 75 M who presents to the office today for ROS General General: Yes colon cancer; no weight change, appetite, fatigue, breast cancer or weakness HEENT HEENT: Yes eye surgery; no difficulty swallowing, eye injury, swollen glands or hoarseness Endo Endocrine: No thyroid disease, diabetes mellitus, thyroid cancer, Hair loss, heat intolerance or cold intolerance Musc Musculoskeletal: Yes arthritis; no back problems, rheumatoid arthritis, gout or joint pain Cardio Cardiovascular: Yes heart disease, high blood pressure, heart attack and heart stent; no murmur, pacemaker, atrial fibrillation, palpitations, shortness of breat with exertion or chest pain Psych Psychiatric: No depression, anxiety or hearing voices Resp Respiratory: Yes shortness of breath, No sleep apnea, No cough, Yes COPD, Yes asthma, Yes emphysema, No wheezing Gastro Gastrointestinal: No abdominal pain, No nausea or vomiting, Yes diarrhea, No constipation, No blood in stool, No acid reflux, Yes hemorrhoids, No ulcers, No gallbladder problem, No black,tarry stools Jj Hematologic: Yes blood thinners, No blood disorders, No bleeding, No anemia, No blood clots Neuro Neurologic: No weakness Exam Const General: cooperative, comfortable, no acute distress, frail appearing Nutritional Appearance: average body habitus Orientation: alert, awake [facility] Head: normal to inspection Eyes General: appearance normal, both eyes and all related structures Chest Other: Increased anterior posterior diameter Resp Auscultation: clear to auscultation bilaterally Other: Poor respiratory excursion, difficult to hear breath sounds. Cardio Heart Sounds: no murmurs Other: Very distant heart sounds, regular GI Palpation: soft, no hepatosplenomegaly Other: Abdominal aortic aneurysm is palpable there is pulsatile nontender Musc Cervical Spine: normal cervical lordosis Skin Other: Marked ecchymosis bilateral upper extremities noted Neuro Cognition: normal cognition Extrem General: no calf tenderness Psych Affect: normal affect Assessment & Plan Problems 1. Abdominal aortic aneurysm (AAA) greater than 5.5 cm in diameter in male I71.4 2. Left inguinal hernia K40.90 3. Generalized abdominal pain R10.84 Plan After the patient's initial visit I was going to pursue evaluation of his abdominal pain however he now has coronary stents recently placed x5 he is mandatory on clopidogrel therapy he also has a known left inguinal hernia. It would appear however that his infrarenal abdominal aortic aneurysm now takes precedence. It is not clear to me how the diagnostic and therapeutic coronary studies may have affected his chronic stage III renal failure. I recommend that we obtain laboratory today. He does have an appointment with Monalisa Best NP?C today. The patient is complaining that June tends to be a very difficult month for him from a pulmonary standpoint. I will want to obtain laboratory today to assess renal function and CBC. I am recommending to him an attempt at a infrarenal abdominal aortic stent graft repair. He is aware that bilateral groin access will be required. He is aware that a preclosure technique will be utilized. His clopidogrel will not be permitted to be stopped. This places him at increased risk for bleeding. It also places him at increased risk for lack of aneurysm thrombosis subsequent to stent graft placement. He is aware of the technique, benefit, risk and alternatives. No guarantees of success have been offered. We will likely schedule at the very end of June early July trying to avoid the extremely cold weather aggravating his pulmonary situation. He has had an opportunity to ask and have questions answered. We will schedule and proceed at his discretion. We will await his cardiology follow-up June 17 and his pulmonary follow-up today. Copy: Dr. Christiano Steinberg and Dr. Darryn Kessler and Monalisa Lyon NP?C and Dr Krystyna Rodríguez M.D., F.A.C.S. Orders Orders: Comprehensive Metabolic Profil Today Z01.818 CBC-Complete Blood Cnt No Diff Today I25.10, Z01.818 Coding Level of Care Code Off vis,est,level 3 Diagnoses Abdominal aortic aneurysm (AAA) greater than 5.5 cm in diameter in male I71.4 Left inguinal hernia K40.90 Generalized abdominal pain R10.84 ??Abdominal location: generalized I have re-examined the patient. There are no clinical changes since date of exam. Procedure Criteria Procedure Type: Elective COVID Risk Discussion: The surgeon/proceduralist and patient have discussed in detail the risk of exposure to and/or potential harm posed by the COVID-19 virus with having a surgery/procedure at this time versus the risk of delaying the surgery/procedu re. It is not possible to know either the risk of delaying the surgery or procedure or chance of getting an infection with perfect accuracy, but a joint decision was made between the patient and the surgeon/proceduralist to proceed at this time with the scheduled surgery/procedure as indicated on the consent form.
--- NOTE | 2020-06-25 06:39 | OP.PCM_ITS ---
Problem List (1) Abdominal aortic aneurysm (AAA) greater than 5.5 cm in diameter in male Status: Chronic Report of Operation Date of Procedure: 06/25/20 Pre-Operative Diagnosis: Infrarenal abdominal aortic aneurysm Post-Operative Diagnosis: Same Surgery/Procedure Performed:: Left radial arterial line placement. Infrarenal abdominal aortic aneurysm stent graft repair Description of Surgical Findings:: Timeout and informed consent was obtained. At the bedside Mario test performed demonstrating adequate left ulnar flow. The left wrist was gently extended and prepped with Betadine. Under ultrasound guidance the left radial artery was identified. 1% lidocaine was used as a local anesthetic. A total of 1 cc was injected under ultrasound guidance. An Arrow kit 20-gauge Angiocath was inserted into the left radial artery under ultrasound guidance and then simultaneous cylinder wire advancement catheter was easily advanced. It was secured skin with 3-0 silk. Skin was secured to the pressure tubing. OpSite dressing then Mariola wrap applied. No apparent complication. Hand was viable at the completion. Good waveform was obtained. The patient was subsequently taken to the special procedures lab for operative intervention. Timeout and informed consent had been obtained. He underwent monitored anesthesia care. Ancef 2 g given intravenously. The abdomen was sterilely prepped and draped. 1% lidocaine mixed 50-50 with 0.5% Marcaine was used as a local anesthetic. Throughout the procedure total 30 cc was used. Ultrasound was used to inspect each groin. Local was instilled under ultrasound guidance. Singlewall needle was advanced on the left. Wire access obtained. 8 Ethiopian sheath dilator was inserted. 2 Perclose devices were then preclosed. One was angled from 2:00 to 8:00 and the second 1 from 10:00 to 4:00. Having placed those the 6 Ethiopian sheath was reinserted. A similar procedure was performed on the right. I did have to use a stiff 12 micropuncture needle to gain access. Then used a micropuncture sheath upgraded to an 035 J-wire placed the 9 Ethiopian sheath and then as per the left placed 2 Perclose devices in a preclosed technique. I then reinserted the 8 Ethiopian sheath. A marking pigtail catheter was then inserted and using 15 cc a second of 15 cc of diluted contrast and AP aortogram was obtained. Measurements were performed. It was therefore elected to place the 18 Ethiopian sheath on the left and a 14 Ethiopian sheath on the right. Using the pigtail catheter 035 Amplatz wires were inserted. The 18 Ethiopian sheath was subsequently inserted on the left and the 14 sheath on the right both over Amplatz wires. The patient had artery received 8000 units of heparin and then later in the case received additional 1000 units of heparin based upon ACT measurements. I deployed the main body device from the left which was a 28.5 x 14.5 x 12 cm device. This was deployed then repositioned and redeployed to be immediately flush with the left renal artery. Contralateral limb was exposed. Wire access was readily obtained. Pigtail catheter was spun in the main body. Subsequently a unpleasant wire was reinserted and a 23 mm Belfon device by 12 cm was inserted. Retrograde injection had been performed to assure measurements and sizing. That device was deployed. Then I deployed the remainder of the main body device. Placed a 16 x 18 mm valve on the device 10 cm long on the left. Measurement was obtained to assure positioning just shy of the hypogastric as had been done on the right. I then used a 33 mm compliant balloon to set the graft in place. The pigtail was reinserted and a AP aortogram was obtained. Unfortunately this demonstrated what appeared to be a type II leak. The balloon was reinserted and the proximal graft retreated another film was obtained failing to resolve the issues there was felt to be calcified plaque on the right lateral aspect of the aorta approximately preventing a good seal. After discussion I elected to place a 28.5 x 3.3 cm long cuff. That was inserted through the left groin 18 Ethiopian sheath was deployed so as to be flush at the top. It was reballooned. Through the pigtail catheter final aortic image was obtained now demonstrating seemingly absence of the type II leak with now with no filling the main body of the aneurysm. There was a very slight rim of contrast seen with a calcified plaque on the right lateral aspect of the aorta at the proximal seating the graft but this appeared to be contained. I elected not to further balloon the aorta due to the fragility of the patient. Sheaths were removed and the Perclose devices were secured. Actually on each side I had to place a additional Perclose device to obtain hemostasis and obviously I did that before losing wire access. Hemostasis however was achieved bilaterally with good results. He has excellent 3+ bilateral DP pulses. The patient then received 20 mg of protamine. He remained incredibly hemodynamically intact throughout the procedure. He was taken to the recovery area and then will be transferred onto the progressive care unit. Imaging demonstrated a infrarenal abdominal aortic aneurysm with some aneurysmal visible change involving both the right and left common iliac more so on the right with some calcific disease on the left. Subsequent to the final imaging the stent graft appears to be in good position. There is no gross filling of contrast into the aneurysm sac. There is very slight sliver of contrast in the right lateral wall of the aorta at the proximal seal but this appears to be contained. There is flowering of the 23 mm gonzalez bottom in the right common iliac just proximal to the hypogastric. The left common iliac has a similar finding though less dramatic. Specimens none. Drains none. Blood loss 100 cc. No apparent complication Sawyer Rodríguez M.D., F.A.C.S. Type of Anesthesia:: Local MAC Anesthesiologist: Aaron Marie
--- NOTE | 2020-06-25 07:04 | DCINST_ITS ---
Discharge Diet: Light diet - advance as tolerated - if you have questions about your diet instructions, please talk to you doctor. Discharge Activity: May Not Drive - for 1 week or while taking narcotic pain medicine. May shower in (days): 1 Lifting Restrictions: 10 pounds Call your doctor if your incision/area has: Continuous Slow Oozing, Sudden Increased Bleeding, Increased Pain/ Swelling, Increased Redness, Foul Smelling Discharge Call your doctor if you observe: Fever of 101 or Higher Suture Line Care: Avoid Pulling/Pushing, Avoid Pinching/Bending Additional Dressing/Incision Instructions:: May remove the plastic groin dressings in 3 days and may continue to shower and pat dry. No tub baths for one week please Allergies/Adverse Reactions: Allergies aspirin Allergy (Verified 06/25/20 05:37) Shortness of breath adhesive Adverse Reaction (Verified 06/25/20 05:37) Rash amoxicillin trihydrate [From Augmentin] Adverse Reaction (Verified 06/25/20 05:37) Other TINGLING ALL OVER atorvastatin calcium [From Lipitor] Adverse Reaction (Verified 06/25/20 05:37) Unknown metoprolol succinate [From Toprol XL] Adverse Reaction (Verified 06/25/20 05:37) Rash naproxen [From Naprosyn] Adverse Reaction (Verified 06/25/20 05:37) Shortness of breath paroxetine HCl [From Paxil] Adverse Reaction (Verified 06/25/20 05:37) Unknown potassium clavulanate [From Augmentin] Adverse Reaction (Verified 06/25/20 05:37) Unknown propoxyphene HCl [From Darvon] Adverse Reaction (Verified 06/25/20 05:37) Unknown sertraline HCl [From Zoloft] Adverse Reaction (Verified 06/25/20 05:37) Unknown simvastatin [From Zocor] Adverse Reaction (Verified 06/25/20 05:37) Unknown tiotropium bromide [From Spiriva with HandiHaler] Adverse Reaction (Verified 06/25/20 05:37) Other SHORT TEMPER RUBBING ALCOHOL Adverse Reaction (Uncoded 06/25/20 05:37) Rash Medications to take at Discharge Clopidogrel Bisulfate [Plavix] 75 mg PO DAILY 02/14/13 Cholecalciferol (Vitamin D3) [Vitamin D3] 2,000 unit PO DAILY 02/27/20 Garlic 1,000 mg PO DAILY 06/29/19 Loperamide [Imodium] 2 mg PO Q2H PRN PRN 06/29/19 Red Rice Yeast 2 cap PO DAILY 06/29/19 Verapamil HCl [Verapamil ER] 120 mg PO QHS 06/29/19 budesonide 0.5 mg/2 mL suspension for nebulization 0.5 mg INHALATION Q12H #180 ml 07/20/19 ipratropium 20 mcg-albuterol 100 mcg/actuation mist for inhalation 2 puff INHALATION PRN PRN #4 g 12/11/19 formoterol fumarate 20 mcg/2 mL solution for nebulization 2 ml INHALATION Q12H #120 ml 01/17/20 tamsulosin 0.4 mg capsule 0.4 mg PO QHS #90 cap 04/22/20 fluticasone propionate 50 mcg/actuation nasal spray,suspension 1 spray INTRANASAL BID 05/09/20 Tavares-3S/Dha/Epa/Fish Oil/D3 [Fish Eyy-Jacdw-8-Vit D Softgel] 1 ea PO DAILY 05/15/20 lorazepam 0.5 mg tablet 1.5 mg PO QHS PRN 30 Days #90 tab 06/11/20 Losartan Potassium [Cozaar] 25 mg PO DAILY 06/18/20 Primary Care Physician: Krystyna Sanchez MD [Primary Care Provider] - Test Results: Test results from this visit will be discussed in further detail at your follow- up appointment, if applicable. Please Follow Up With: Sawyer Rodríguez MD - [phone] When: Call to make an appointment to be seen in about 10 days.
--- NOTE | 2020-06-25 11:47 | CPS ---
Pulmicort not given, pt wants to take own med & own nebulizer and brought own I.SDoris Lozada RN in room and aware.
--- NOTE | 2020-06-25 14:22 | EKG12_ITS ---
Test Reason : KIANNA Blood Pressure : / mmHG Vent. Rate : 047 BPM Atrial Rate : 047 BPM P-R Int : 146 ms QRS Dur : 084 ms QT Int : 480 ms P-R-T Axes : 051 -31 -48 degrees QTc Int : 424 ms Sinus bradycardia Left axis deviation Abnormal ECG Confirmed by PREMA RODRIGUEZ, BENEDICT ([id number]), order editor CHELSEA HASSAN ([id number]) on 06/26/2020 12:56:36 P M Referred By: Sawyer Rodríguez Confirmed By:CHASTITY LLOYD MD
[2020-06-25] MEDS: Cefazolin 1 GM/50 ML BAG IV (15:57)
[2020-06-25] MEDS: Lactated Ringers 1,000 ML 70 ML IV (15:57)
--- NOTE | 2020-06-25 16:33 | NURSING ---
Pt's bedrest completed at this time, pt ambulated to chair via x2 assist, pt tolerated well, sites remain soft, dsg C/D/I, denies dizziness or abdominal pain.
--- NOTE | 2020-06-25 16:59 | PCM.PN.SRG ---
Subjective: Patient complains of sore throat otherwise no chest pain or shortness of breath. - Physical Exam Vitals/I&O's: Vital Signs Temp Pulse Resp BP Pulse Ox 97.7 F L 52 L 12 150/68 H 97 06/25/20 15:00 06/25/20 16:48 06/25/20 16:48 06/25/20 16:48 06/25/20 16:48 Oxygen Flow Rate (L/min) 2 Oxygen Delivery Method Room Air Weight: 163 lb 9.328 oz Body Mass Index (BMI) 25.6 Intake and Output for Last 24 Hours 06/23/20 06/24/20 06/25/20 23:59 23:59 23:59 Intake Total 1031.67 / 1031.67 Output Total 985 / 985 Balance 46.67 / 46.67 Cardiovascular: - - 3+ bilateral DP pulses Abdomen: Soft, Non Tender Extremities: - - Supple groins nontender Microbiology Past 72 Hours 06/24/20 13:10 Interface Orders SARS-CoV-2 Antigen (Rapid) - Final Laboratory Results 06/25/20 14:20: Troponin I < 0.015 Current Medications Acetaminophen (Acetaminophen 325 Mg Tablet) 650 mg PO Q6H PRN PRN PRN Reason: PAIN Hydrocodone Bitart/Acetaminophen (Hydrocodone Bitartrate/Apap 5/325 Tablet) 1 - 2 tablet PO Q4H PRN PRN PRN Reason: PAIN Albuterol/Ipratropium (Ipratropium/Albuterol Sulfate 3 Ml Ampul.Neb) 3 ml INHALATION Q6H PRN PRN Reason: SHORTNESS OF BREATH Budesonide (Budesonide Respules 0.5 Mg/2 Ml Ampul.Neb.) 0.5 mg INHALATION Q12H.RT [facility] Clopidogrel Bisulfate (Clopidogrel Bisulfate 75 Mg Tablet) 75 mg PO HS RAJ Enoxaparin Sodium (Enoxaparin 40 Mg/0.4 Ml Syringe) 40 mg SC DAILY@0600 [facility] Fluticasone Propionate (Fluticasone 0.05% 1 [place] Nasal.Sry) 1 spray NASAL BID [facility] Last Admin: 06/25/20 13:06 Dose: Not Given Documented by: Formoterol Fumarate (Formoterol Fumarate 20 Mcg/2 Ml) 20 mcg INHALATION BID.RT [facility] Cefazolin Sodium () 1 gm in 50 mls @ 150 mls/hr IV Q8H RAJ Stop: 06/26/20 00:19 Last Infusion: 06/25/20 16:57 Dose: Infused Documented by: Lactated Ringer's () 1,000 mls @ 70 mls/hr IV .[id number] RAJ Last Admin: 06/25/20 15:57 Dose: 70 mls/hr Documented by: Sodium Chloride () 250 mls @ 15 mls/hr IV .[id number] PRN PRN Reason: Saline Flush Sodium Chloride () 250 mls @ 15 mls/hr IV .[id number] PRN PRN Reason: Additional IVPB Infusion Losartan Potassium (Losartan Potassium 25 Mg Tablet) 25 mg PO DAILY RAJ Sodium Chloride (0.9% Saline Lock 10 Ml Syringe) 10 - 40 ml IV UD PRN PRN Reason: SALINE FLUSH Tamsulosin HCl (Tamsulosin Hcl 0.4 Mg Capsule) 0.4 mg PO QHS RAJ Throat Lozenges (Benzocaine/Menthol 1 Lozenge) 2 lozenge MUCOUS MEM Q2H PRN PRN PRN Reason: SORE THROAT Medical Necessity - Tobacco Use Smoking Status: Former smoker Tobacco Use: Non-smoker Assessment/Plan All Active Problems (Last Reviewed 06/12/20 @ 13:50 by Monalisa Lyon [employer], [employer]-C) History of abdominal aortic aneurysm (AAA) repair (Acute ~06/2020) History of ST elevation myocardial infarction (STEMI) (Resolved 05/27/07) History of coronary artery stent placement (Resolved 05/30/07) Patient appears to be very stable. He has been prescribed sore throat lozenge. We will continue to follow. Current heart rate is in the low 60s. He appears stable. Sawyer Rodríguez M.D., F.A.C.S.
[2020-06-25] MEDS: BENZOCAINE/MENTHOL 1 LOZENGE 2 LOZENGE MUCOUS MEM ×2 (17:37→20:10)
--- NOTE | 2020-06-25 18:59 | CON.PCM_ITS ---
Problem List (1) Sinus bradycardia Status: Acute (2) Atherosclerotic heart disease of [place] coronary artery without angina pectoris Status: Chronic (3) History of coronary artery stent placement Status: Resolved Comment: PCI-JIM-Mid RCA w/ 3.5 x 8 mm and 3.5 x 23 mm Cypher Stent 05/27/2007; PCI-JIM-Mid LAD w/ 3.0 x 8 mm and 2.75 x 23 mm Cypher Stent, JIM-Prox LCx w/ 3.5 x 13 mm Cypher Stent and POBA-OM1 05/30/2007 (4) Hyperlipidemia Status: Chronic (5) Essential (primary) hypertension Status: Chronic (6) History of abdominal aortic aneurysm (AAA) repair Status: Acute Reason for Consult Date of Consultation: 06/25/20 History of Present Illness: The patient is a 75 year old white male with a history of CAD, status post PCI, hyperlipidemia, hypertension, now status post AAA repair, who is referred for evaluation of marked sinus bradycardia. The patient has been recently evaluated from a cardiovascular standpoint both noninvasively and invasively. He was referred for evaluation with CABG. However based upon his calcified thoracic aorta he was declined CABG. He was then recommended for further multivessel PCI. He subsequently presented this day for a AAA repair which was performed without obvious adverse event. In the postoperative recovery timeframe he was noted to have evidence of marked sinus bradycardia. This occurred while he was resting/sleeping. He does not recall having any post procedure related chest discomfort or difficulty breathing. He does not recall any obvious palpitations. There is been no report of any near-syncope or syncope. He states at the present time he feels well. He has been up out of bed and then in the chair without difficulty. He has been taking his oral input-liquid diet- without difficulty. [] Past Medical History Allergies/Adverse Reactions: Allergies aspirin Allergy (Verified 06/25/20 05:37) Shortness of breath adhesive Adverse Reaction (Verified 06/25/20 05:37) Rash amoxicillin trihydrate [From Augmentin] Adverse Reaction (Verified 06/25/20 05:37) Other TINGLING ALL OVER atorvastatin calcium [From Lipitor] Adverse Reaction (Verified 06/25/20 05:37) Unknown metoprolol succinate [From Toprol XL] Adverse Reaction (Verified 06/25/20 05:37) Rash naproxen [From Naprosyn] Adverse Reaction (Verified 06/25/20 05:37) Shortness of breath paroxetine HCl [From Paxil] Adverse Reaction (Verified 06/25/20 05:37) Unknown potassium clavulanate [From Augmentin] Adverse Reaction (Verified 06/25/20 05:37) Unknown propoxyphene HCl [From Darvon] Adverse Reaction (Verified 06/25/20 05:37) Unknown sertraline HCl [From Zoloft] Adverse Reaction (Verified 06/25/20 05:37) Unknown simvastatin [From Zocor] Adverse Reaction (Verified 06/25/20 05:37) Unknown tiotropium bromide [From Spiriva with HandiHaler] Adverse Reaction (Verified 06/25/20 05:37) Other SHORT TEMPER RUBBING ALCOHOL Adverse Reaction (Uncoded 06/25/20 05:37) Rash Home Medications: Ambulatory Orders Medication Instructions Recorded Clopidogrel Bisulfate [Plavix] 75 mg PO QHS 02/14/13 Cholecalciferol (Vitamin D3) 2,000 unit PO DAILY 06/29/19 [Vitamin D3] Garlic 1,000 mg PO DAILY 06/29/19 Loperamide [Imodium] 2 mg PO Q2H PRN PRN 06/29/19 Red Rice Yeast 2 cap PO DAILY 06/29/19 Verapamil HCl [Verapamil ER] 120 mg PO QHS 06/29/19 budesonide 0.5 mg/2 mL suspension 0.5 mg INHALATION Q12H #180 ml 07/20/19 for nebulization ipratropium 20 mcg-albuterol 100 2 puff INHALATION PRN PRN #4 g 12/11/19 mcg/actuation mist for inhalation formoterol fumarate 20 mcg/2 mL 2 ml INHALATION Q12H #120 ml 01/17/20 solution for nebulization tamsulosin 0.4 mg capsule 0.4 mg PO QHS #90 cap 04/22/20 fluticasone propionate 50 1 spray INTRANASAL BID 05/09/20 mcg/actuation nasal spray,suspension [place]-3S/Dha/Epa/Fish Oil/D3 [Fish 1 ea PO DAILY 05/15/20 Qmi-Wclhk-9-Vit D Softgel] lorazepam 0.5 mg tablet 1.5 mg PO QHS PRN 30 Days #90 tab 06/11/20 Losartan Potassium [Cozaar] 25 mg PO DAILY 06/18/20 Past Medical History (Chronic Problems): Chronic Problems (Last Reviewed 06/12/20 @ 13:50 by Monalisa Lyon MULTIMEDIA EDITOR, MULTIMEDIA EDITOR-C) Atherosclerotic heart disease of [place] coronary artery without angina pectoris (Chronic) 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) Essential (primary) hypertension (Chronic) Hyperlipidemia (Chronic) Abdominal aortic aneurysm (AAA) greater than 5.5 cm in diameter in male (Chronic) Left inguinal hernia (Chronic) Abdominal pain (Chronic) Iron deficiency (Chronic) 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 classification (Chronic) FEV1 64% of predicted Hypoxia (Chronic) 2 L nasal cannula oxygen with sleep Asthma (Chronic) History of colon cancer (Chronic) Insomnia (Chronic) Surgical History: angioplasty, colectomy, - - Left thumb surgery, bilateral anterior ethmoidectomy, bilateral maxillary antrostomy, hernia surgery Psychiatric History: No pertinent psych hx - *Family History Maternal Family History: Family History (Last Reviewed 06/12/20 @ 13:50 by Monalisa Lyon MULTIMEDIA EDITOR, MULTIMEDIA EDITOR-C) Father Heart disease Hypertension High cholesterol CVA (cerebral vascular accident) Mother Dementia History Items: - Smoking Status: Former smoker Tobacco Use: Non-smoker Review of Systems - Review of Systems General: Denies: Fever, Night Sweats, Fatigue Cardiovascular: Denies: Chest Discomfort, Shortness of Breath, Orthopnea, PND, Peripheral Edema, Palpitations, Lightheadedness, Dizziness, Near Syncope, Syncope Respiratory: Denies: Cough, Sputum Production, Hemoptysis Gastrointestinal: Denies: Hematemesis, Hematochezia, Melena Genitourinary: Denies: Dysuria, Hematuria Skin: Denies: Rash Subjectve: This is a 75-year-old white male who appears to be resting comfortably at the moment in no acute distress. Objective: Vital Signs Temp Pulse Resp BP Pulse Ox 97.2 F L 62 13 143/72 H 93 06/25/20 17:00 06/25/20 17:00 06/25/20 17:00 06/25/20 17:00 06/25/20 17:00 Oxygen Flow Rate (L/min) 2 Oxygen Delivery Method Room Air Weight: 163 lb 9.328 oz Body Mass Index (BMI) 25.6 Intake and Output for Last 24 Hours 06/23/20 06/24/20 06/25/20 23:59 23:59 23:59 Intake Total 1871.67 / 1871.67 Output Total 1275 / 1275 Balance 596.67 / 596.67 General: Awake, Alert, Oriented x 3, Cooperative, No Acute Distress HEENT: Atraumatic, Normocephalic, PERRL, EOMI, Sclera Non Icteric Neck: Supple, Good ROM, No JVD Lungs: Clear to auscultation Cardiovascular: Regular Rhythm, Normal S1, Normal S2 Abdomen: Bowel Sounds Present, Soft Extremities: No edema Neurological: No Focal Motor or Sensory Deficit Psych/Mental Status: Appropriate 06/25/20 14:20: Troponin I < 0.015 06/25/20 16:50: Troponin I < 0.015 Rhythm: Sinus rhythm EKG: Marked sinus bradycardia ECHO: 05/22/2020 Interpretation Summary Normal LV size. Left ventricular systolic function is normal. The estimated ejection fraction is 55 %. Stage 1 diastolic dysfunction. Pulmonary artery systolic pressure is 30 mmHg. Stress Test: 05/22/2020 Stress Test Report Pharmacologic myocardial perfusion stress test. 75-year-old man with a history of previous inferior wall myocardial infarction and drug-eluting stent to the LAD, circumflex artery, obtuse marginal branch and the right coronary artery. Stress protocol: Resting EKG demonstrates normal sinus rhythm with a rate of 74 bpm normal intervals are noted resting blood pressure is 124/70 mmHg. 0.4 mg of regadenoson was infused per usual protocol followed by rapid intravenous saline flush injection continuous EKG monitoring was performed. The patient maintained sinus rhythm throughout the recording. The maximum heart rate attained was 97 bpm which was 67% of max impacted heart rate in the maximum workload was 1 metabolic equivalent. At rest there were no ST or T wave changes noted to suggest abnormal flow reserve. The final blood pressure was 136/72 mmHg. The test was terminated due to completion of the protocol. Myocardial perfusion protocol. 11.7 mCi of technetium 99m sestamibi was injected at rest. 0.4 mg of regadenoson was infused per usual protocol. At peak infusion 32.8 mCi of technetium 99m sestamibi was injected stress images were obtained stress and rest images were reconstructed and compared in the short axis vertical long horizontal long axis. Gated images were also obtained Perfusion SPECT analysis: Review of the stress images demonstrate normal perfusion noted in the septum anterior wall and lateral wall. There is a medium to large size defect noted involving the inferior wall on the stress images with improvement in the perfusion size on the resting images suggesting a moderate amount of inferior ischemia. A previous infarct in the inferior wall is also present. Gated SPECT analysis: The gated ejection fraction is 55%. Conclusion: Abnormal pharmacologic myocardial perfusion stress test with evidence of previous inferior infarct. Mid inferior and inferoapical ischemia present. Preserved ejection fraction. Cardiac Cath: 05/24/2020 CONCLUSIONS Severe triple-vessel disease with stenosis noted in the LAD and the previously placed stent, mid report stent of the circumflex artery, [place] left circumflex artery in 2 areas mid and distal, right coronary artery, totally occluded distal right coronary artery with [id number] collaterals, preserved ejection fraction. RECOMMENDATIONS Surgery consult for coronary revascularization DESCRIPTION OF PROCEDURE The patient arrived to the procedure lab. The risks and benefits of the procedure as well as a full description of our services here and current unavailability of surgical backup were fully explained to the patient and/or their significant other prior to the catheterization. The Timeout was completed, verifying the correct patient and procedure. The patient's procedural site was prepped and draped in the usual fashion. Local anesthetic was given subcutaneously to right radial region with Lidocaine 2%. Using a modified Seldinger technique, arterial access was obtained via the right radial artery, a 6Fr sheath was inserted. Left Coronary Artery selective angiography was performed in multiple views using a 5 Fr. 4.0 [place] catheter. Right Coronary Artery selective angiography was then performed in multiple views using a 5 Fr. 4.0 [place] catheter. Left Ventriculography was performed in MOORE projection using a 5 Fr. Pigtail catheter. LV to AO pullback pressures were then recorded.The arterial sheath was pulled and a TR Band was applied for hemostasis w/ 13ml air CORONARY ANGIOGRAPHY DOMINANCE: Right Dominant LEFT HEART ASSESSMENT Left Ventricular Ejection Fraction: by LV Gram 60 % Normal LV wall motion Normal Left Ventricular systolic function LEFT MAIN: Mild calcification, Non-obstructive LEFT ANTERIOR DESCENDING ARTERY: PROX LAD: Mild luminal irregularities less than 30% MID LAD: Previously placed stent has an instent 80 % restenosis DISTAL LAD: Mild luminal irregularities CIRCUMFLEX ARTERY: PROX CIRC: Previously placed stent is patent, 80 % Stenosis MID CIRC: 95 % Stenosis OM 1: Proximal - Mild luminal irregularities OM 2: Proximal - Mild luminal irregularities OM 3: Mid - 90 % Stenosis RIGHT CORONARY ARTERY: PROX RCA: 95 % Stenosis MID RCA: Previously placed stent has an instent 90 % restenosis RT PLV: is occluded RT PDA: Mid - Mild luminal irregularities COLLATERAL FLOW: Collateral flow from Left to Right Chest CT scan: IMPRESSION: Hyperinflation. Emphysematous changes with bullous formation worse in the upper lobes. Atherosclerotic calcification of the ascending thoracic aorta as well as the aortic arch and descending thoracic aorta. Electronically Signed: Baljeet Thurman MD at 8:47 EST PVS: 06/25/2020 Surgery/Procedure Performed:: Left radial arterial line placement. Infrarenal abdominal aortic aneurysm stent graft repair Assessment/Plan 1. Marked sinus bradycardia The patient was noted to have in his recovery period, reportedly while sleeping, evidence of marked sinus bradycardia. He does not recall any concerning symptoms. There is been no report of any adverse events. His cardiac rate was monitored and his increased spontaneously without any obvious intervention. The present time he will continue to be followed. His rate and rhythm can be followed. His calcium channel antagonist has been placed on temporary hold pending further follow-up evaluation. 2. CAD status post multivessel PCI At the present time the patient does not appear to have any ongoing issues with respect to any evidence of acute coronary syndrome. He will continue risk factor modification medical therapy as deemed appropriate. 3. Hyperlipidemia The patient should continue risk factor evaluation and care/medical therapy. 4. Hypertension Patient's blood pressure will be followed and his medications can be adjusted accordingly. 5. Status post AAA repair The patient is now status post AAA repair. He appears without any obvious adverse cardiovascular event. He will continue to be monitored. He will continue medical management with adjustment as needed. Comment: The patient's case has been discussed and reviewed with the patient and previously with FLORA Suarez. This note was generated using a voice recognition system and there may be incorrect words, spelling or punctuation that were not noted when reviewing the office note prior to saving.
[2020-06-25] MEDS: Acetaminophen 325 MG Tablet 650 MG PO (20:14)
[2020-06-25] MEDS: Tamsulosin HCl 0.4 MG Capsule PO (22:06)
[2020-06-25] MEDS: Clopidogrel Bisulfate 75 MG Tablet PO (22:06)
[2020-06-25] MEDS: Budesonide Respules 0.5 MG/2 ML AMPUL.NEB. INHALATION (22:35)
[2020-06-26] VITALS (7 sets, daily range): BP systolic 135–162; BP diastolic 74–81; PULSE 72–105; RESP 12–18; TEMP 36.2–36.9; O2SAT 92–95
[2020-06-26] MEDS: Cefazolin 1 GM/50 ML BAG IV (00:01)
[2020-06-26] MEDS: Lactated Ringers 1,000 ML 70 ML IV (02:54)
[2020-06-26] MEDS: Acetaminophen 325 MG Tablet 650 MG PO (03:29)
[2020-06-26 06:05] LABS: Absolute Lymphocyte Count 0.72 X10^3/uL (0.83-4.51); Absolute Neutrophil Count 6.9 X10^3/uL (2.0-7.7); Basophil# 0.07 X10^3/uL; Basophil% 0.8 % (0-1); Eosinophil# 0.58 X10^3/uL; Eosinophils% 6.3 % (0-5); Hematocrit 33.2 % (40-54); Hemoglobin 10.7 g/dL (13.0-16.5); Lymphocyte # 0.72 X10^3/ul (4.0); Lymphocyte % 7.8 % (19-41); Mean Corp Hgb Conc 32.2 g/dL (32-36); Mean Corpuscular Hgb 27.9 pg (27.0-32.0); Mean Corpuscular Volume 86.5 fL (80-94); Mean Platelet Vol. 10.5 fl (6.2-12.0); Monocyte# 0.89 X10^3/uL; Monocyte% 9.7 % (0-10); NRBC Flagged by Analyzer 0 % (0-5); Neutrophil # 6.88 X10^3/uL (2.7-7.7); Neutrophil % 74.9 % (47-70); Platelet Count 269 K/mm3 (150-450); RBC Distribution Width CV 14.6 % (11.6-14.6); RBC Distribution Width SD 45.5 fl (35.1-43.9); Red Blood Count 3.84 M/mm3 (4.6-6.2); White Blood Count 9.2 K/mm3 (4.4-11.0)
--- NOTE | 2020-06-26 06:09 | PCM.PN.SRG ---
Patient Problems: Active and Suspected Problems (Last Reviewed 06/12/20 @ 13:50 by Monalisa Lyon PATHOLOGY SECRETARY, PATHOLOGY SECRETARY-C) Sinus bradycardia (Acute) History of abdominal aortic aneurysm (AAA) repair (Acute ~06/2020) Subjective: Appreciate Dr. Rob Cruz's consultation It is likely that the patient's postoperative bradycardia was secondary to anesthetic medications provided. Troponins remain negative. He has remained asymptomatic. He currently has absolutely no complaints. He notes some mild bilateral groin soreness at the percutaneous access sites. He denies any abdominal pain. He is passing flatus. He denies any chest pain or shortness of breath - Physical Exam Vitals/I&O's: Vital Signs Temp Pulse Resp BP Pulse Ox 98.5 F 80 12 136/76 H 93 06/26/20 05:00 06/26/20 05:00 06/26/20 05:00 06/26/20 05:00 06/26/20 05:00 Oxygen Flow Rate (L/min) 2 Oxygen Delivery Method Room Air Weight: 163 lb 9.328 oz Body Mass Index (BMI) 25.6 Intake and Output for Last 24 Hours 06/24/20 06/25/20 06/26/20 23:59 23:59 23:59 Intake Total 2441.67 / 2541.67 1135.5 / 1135.5 Output Total 1750 / 1900 1250 / 1250 Balance 691.67 / 641.67 -114.5 / -114.5 General: Alert, Oriented x3, Cooperative, No apparent distress Lungs: Clear to auscultation Cardiovascular: Regular rate, Regular Rhythm, - - Excellent 3+ bilateral DP pulses Abdomen: Bowel Sounds Present, Soft, Non Tender Extremities: - - Lateral groins clean dry supple mild tenderness Microbiology Past 72 Hours 06/24/20 13:10 Interface Orders SARS-CoV-2 Antigen (Rapid) - Final Laboratory Results 06/25/20 14:20: Troponin I < 0.015 06/25/20 16:50: Troponin I < 0.015 06/25/20 20:33: Troponin I < 0.015 06/26/20 05:40: WBC 9.2, RBC 3.84 L, Hgb 10.7 L, Hct 33.2 L, MCV 86.5, MCH 27.9, MCHC 32.2, RDW Std Deviation 45.5 H, RDW Coeff of Kylee 14.6, Plt Count 269, MPV 10.5, Immature Gran % (Auto) 0.500, Neut % (Auto) 74.9 H, Lymph % (Auto) 7.8 L, Casey % (Auto) 9.7, Eos % (Auto) 6.3 H, Baso % (Auto) 0.8, Absolute Neuts (auto) 6.9, Absolute Lymphs (auto) 0.72 L, Nucleated RBC % 0 06/26/20 05:40: Sodium Pending, Potassium Pending, Chloride Pending, Carbon Dioxide Pending, Anion Gap Pending, BUN Pending, Creatinine Pending, Est GFR (MDRD) Af Amer Pending, Est GFR (MDRD) Non-Af Pending, BUN/Creatinine Ratio Pending, Glucose Pending, Calcium Pending Current Medications Acetaminophen (Acetaminophen 325 Mg Tablet) 650 mg PO Q6H PRN PRN PRN Reason: PAIN Last Admin: 06/26/20 03:29 Dose: 650 mg Documented by: Hydrocodone Bitart/Acetaminophen (Hydrocodone Bitartrate/Apap 5/325 Tablet) 1 - 2 tablet PO Q4H PRN PRN PRN Reason: PAIN Albuterol/Ipratropium (Ipratropium/Albuterol Sulfate 3 Ml Ampul.Neb) 3 ml INHALATION Q6H PRN PRN Reason: SHORTNESS OF BREATH Budesonide (Budesonide Respules 0.5 Mg/2 Ml Ampul.Neb.) 0.5 mg INHALATION BID.RT [facility] Last Admin: 06/25/20 22:35 Dose: 0.5 mg Documented by: Clopidogrel Bisulfate (Clopidogrel Bisulfate 75 Mg Tablet) 75 mg PO HS [facility] Last Admin: 06/25/20 22:06 Dose: 75 mg Documented by: Enoxaparin Sodium (Enoxaparin 40 Mg/0.4 Ml Syringe) 40 mg SC DAILY@0600 [facility] Fluticasone Propionate (Fluticasone 0.05% 1 [place] Nasal.Sry) 1 spray NASAL BID [facility] Last Admin: 06/25/20 22:06 Dose: Not Given Documented by: Formoterol Fumarate (Formoterol Fumarate 20 Mcg/2 Ml) 20 mcg INHALATION BID.RT [facility] Last Admin: 06/25/20 22:22 Dose: 20 mcg Documented by: Lactated Ringer's () 1,000 mls @ 70 mls/hr IV .[id number] Last Admin: 06/26/20 02:54 Dose: 70 mls/hr Documented by: Sodium Chloride () 250 mls @ 15 mls/hr IV .[id number] PRN PRN Reason: Saline Flush Sodium Chloride () 250 mls @ 15 mls/hr IV .[id number] PRN PRN Reason: Additional IVPB Infusion Losartan Potassium (Losartan Potassium 25 Mg Tablet) 25 mg PO DAILY [facility] Sodium Chloride (0.9% Saline Lock 10 Ml Syringe) 10 - 40 ml IV UD PRN PRN Reason: SALINE FLUSH Tamsulosin HCl (Tamsulosin Hcl 0.4 Mg Capsule) 0.4 mg PO QHS [facility] Last Admin: 06/25/20 22:06 Dose: 0.4 mg Documented by: Throat Lozenges (Benzocaine/Menthol 1 Lozenge) 2 lozenge MUCOUS MEM Q2H PRN PRN PRN Reason: SORE THROAT Last Admin: 06/25/20 20:10 Dose: 2 lozenge Documented by: Medical Necessity - Tobacco Use Smoking Status: Former smoker Tobacco Use: Non-smoker Assessment/Plan All Active Problems (Last Reviewed 06/12/20 @ 13:50 by Monalisa Lyon PATHOLOGY SECRETARY, PATHOLOGY SECRETARY-C) Sinus bradycardia (Acute) History of abdominal aortic aneurysm (AAA) repair (Acute ~06/2020) History of ST elevation myocardial infarction (STEMI) (Resolved 05/27/07) History of coronary artery stent placement (Resolved 05/30/07) Labs are pending. Remove Roberto. Mobilize patient. Advance diet. Anticipate discharge today Sawyer Rodríguez M.D., F.A.C.S.
[2020-06-26 06:34] LABS: Anion Gap 6 (5-15); BUN 14 mg/dL (7-18); BUN/Creat Ratio 11.8 RATIO (10-20); Calcium,Total 8.9 mg/dL (8.5-10.1); Chloride 111 mmol/L (98-107); Creatinine, Serum 1.19 mg/dL (0.70-1.30); EST Glomerular Filtration Rate 63 mL/min (>60); Est Glom Filt Rate - Afr Amer 76 mL/min (>60); Estimated Creatinine Clearance 49.37 ml/min; Glucose 93 mg/dL (74-106); Potassium 3.7 mmol/L (3.5-5.1); Sodium Level 143 mmol/L (136-145)
[2020-06-26] MEDS: Enoxaparin 40 MG/0.4 ML Syringe SC (06:51)
[2020-06-26] MEDS: Budesonide Respules 0.5 MG/2 ML AMPUL.NEB. INHALATION (07:08)
--- NOTE | 2020-06-26 07:13 | CPS ---
patient rinsed mouth post treatment.
[2020-06-26] MEDS: Losartan Potassium 25 MG Tablet PO (09:42)
--- NOTE | 2020-06-26 09:45 | CASEMGMT ---
TREVOR MORALES assessment: Face to Face with patient for initial transition planning/care coordination assessment. RN ANDREW introduced self and role at [facility], pt voices understanding and consents to assessment. Pt is sitting up in bed on room air in no distress. Pt is A/Ox4 and answers all questions appropriately at this time. Care providers, pharmacy, and demographics verified. Admitting dx: AAA repair PCP: Laura Specialists: Marcos, vascular surgeon; tiara Kessler; mis Hill Preferred Pharmacy: [facility] Insurance: [facility] A/B, [employer] Prescription Benefit: Yes Living Will/HPOA: Pt has LW/HPOA and they are on file at [facility] at this time. Pt's , Shania Clements, is listed as HPOA but states he wants son, Rob Clements, called first as his is starting to have 'memory issues.' This TREVOR MORALES offered for SW to change HPOA paperwork at this time and pt declined. Rob listed as call first on demographics per pt request at this time. LNOK: Rob Clements, son; Shania Clements, Living Arrangements: Pt states lives with in 1 story home with 2 steps in and states no concerns at home. Pt states is independent with ADL's. Transportation: Pt states drives self and states no transportation concerns. DME/HHC: Pt states has 2 working oxygen concentrators at home as well as a POC. Pt states that he is on 3L at bedtime and bought the POC for SOB while wearing masks in public. Pt states no need for any further DME. Pt states no hx of HHC or SNF in the past. Pt states no concerns with going home at time of discharge. Pt states is retired. Pt states does not smoke cigarettes but does drink a 1/2 beer at bedtime every night. Pt states no further concerns/needs at this time. CM to follow for any further discharge planning/needs. Advised pt to ask for CM if any further questions/concerns/needs arise, voices understanding. Pt Goal: Home Plan: [place]REVOR MORALES
--- NOTE | 2020-06-26 10:18 | PHA.DC.MR ---
Pharmacy Service has performed discharge medication reconciliation for this patient. The patient's discharge medication list was reviewed for discrepancies and discrepancies were resolved. Home Medications Clopidogrel Bisulfate [Plavix] 75 mg PO QHS 02/14/13 Cholecalciferol (Vitamin D3) [Vitamin D3] 2,000 unit PO DAILY 06/29/19 Garlic 1,000 mg PO DAILY 06/29/19 Loperamide [Imodium] 2 mg PO Q2H PRN PRN 06/29/19 Red Rice Yeast 2 cap PO DAILY 06/29/19 Verapamil HCl [Verapamil ER] 120 mg PO QHS 06/29/19 budesonide 0.5 mg/2 mL suspension for nebulization 0.5 mg INHALATION Q12H #180 ml 07/20/19 ipratropium 20 mcg-albuterol 100 mcg/actuation mist for inhalation 2 puff INHALATION PRN PRN #4 g 12/11/19 formoterol fumarate 20 mcg/2 mL solution for nebulization 2 ml INHALATION Q12H #120 ml 01/17/20 tamsulosin 0.4 mg capsule 0.4 mg PO QHS #90 cap 04/22/20 fluticasone propionate 50 mcg/actuation nasal spray,suspension 1 spray INTRANASAL BID 05/09/20 [place]-3S/Dha/Epa/Fish Oil/D3 [Fish Uox-Xzuuw-8-Vit D Softgel] 1 ea PO DAILY 05/15/20 lorazepam 0.5 mg tablet 1.5 mg PO QHS PRN 30 Days #90 tab 06/11/20 Losartan Potassium [Cozaar] 25 mg PO DAILY 06/18/20
== END 2020-06-26 10:54 | disposition home or self-care (01) | DRG 269 ==
LOC: ACINP 05:34 → PCU 11:13
PROVIDERS: Physician Assistant; Admitting Provider Surgery; PCP Internal Medicine; Referring Provider Surgery; Visit Provider Surgery
PROC: 03HY32Z Insertion of Monitoring Device into Upper Artery, Percutaneous Approach (ICD-10-PCS; principal; 2020-06-25 07:00)
DX: I71.4 Abdominal aortic aneurysm, without rupture (principal); N18.30 Chronic kidney disease, stage 3 unspecified; J44.9 Chronic obstructive pulmonary disease, unspecified; I12.9 Hypertensive chronic kidney disease with stage 1 through stage 4 chronic kidney disease, or unspecified chronic kidney disease; I25.10 Atherosclerotic heart disease of native coronary artery without angina pectoris; T41.45XA Adverse effect of unspecified anesthetic, initial encounter; R00.1 Bradycardia, unspecified; Z87.891 Personal history of nicotine dependence; I25.2 Old myocardial infarction; Z95.1 Presence of aortocoronary bypass graft; Z95.5 Presence of coronary angioplasty implant and graft; E78.5 Hyperlipidemia, unspecified; K40.90 Unilateral inguinal hernia, without obstruction or gangrene, not specified as recurrent; Z85.038 Personal history of other malignant neoplasm of large intestine; E61.1 Iron deficiency; Z86.79 Personal history of other diseases of the circulatory system; Z90.49 Acquired absence of other specified parts of digestive tract; N40.0 Benign prostatic hyperplasia without lower urinary tract symptoms
CPT/HCPCS: 34701; 34709; 34713; 36200; 36415; 75625; 80048; 84484; 85025; 87426; 93005; 94640; 99251; C9803; J7040; J7120; Q9967; C1725; C1760; C1769; C1894; G0463

== ENCOUNTER → 2020-08-02 12:31 | Outpatient (CLI) | payer MEDICARE, OTHER, SELFPAY ==
[2020-06-26 11:42] VITALS: BMI 25.6
--- NOTE | 2020-08-02 12:48 | PCM.CR.ITP ---
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, prescence of cornary stent, Personal Learning Style:: Audio/Visual, Written Barriers to Learning: Hearing Impairment, Vision Impairment Stage of change r/t lifestyle modifications:: Action Gave educational material for:: Treating Heart Disease, Emotions & Heart Disease, Stress Management & Relaxation, Sleep Disorders & Heart Disease, How The Heart Works, What it means to have Heart Disease, How Coronary Artery Disease is Diagnosed, Heart Procedures, What Heart Medications Do, Risk Factors & Modifications, Living an Active Life, Nutrition - Education/Goals Individual Counseling: Initial Assessment: Abnormal Cholesterol Levels, High Blood Pressure Cardiac Rehabilitation Goals: 1. Maintain the individual as the primary focus of care. 2. To improve the patient's quality of life. 3. Identification of cardiac risk factors and provide cardiac risk factor management. 4. Enhance the psychosocial status of the patient. 5. Reconditioning enough to allow the patient to resume customary activities. 6. Control symptoms of cardiac disease Personal Goals: Initial Assessment: Improve energy level, Participate in home exercise program, Improve muscle strength and endurance Scale for measuring improvement of personal goals: Enter appropriate number in Comments. 2 = Unchanged. 3 = Slightly Better. 4 = Moderate Improvement. 5 = Met my Goal - Diagnosis & Disease Process Outcomes/Goals: Pt IDs own risk factors & lifestyle modifications by Session 10, Verbalizes symptoms of angina & response by session 3., Pt independently manages Plan/Interventions: Assist Pt to ID & engage in lifestyle modification to reduce CVD risk, Instruct on individual risk factors, Review symptoms of angina & emergency actions, Review secondary diagnosis & identify educational needs. - Safety Referral to Physical Therapy: No Referral to [facility] Case Management: No Fall Risk Assessed:: Yes Assistive Devices:: None Exercise - Initial Assessment - Visit Date of Eval: 08/02/20 Session #:: 0 - Pre-cardiac rehab evaluation Mets: Pre-: >7 METS for 30 minutes by discharge - Physician Prescribed Exercise Modalities: Treadmill, Rower, Airdyne, NuStep Frequency: 3x/week for 12 weeks [36 sessions] Intensity: 60-80% of age predicted maximum heart rate reserve Current METSs:: 3.0 Target Heart Rate:: 94-122 Resting Blood Pressure: 160/90 EKG Type: Sinus Bradycardia - Outcomes & Goals Goals:: Verbalizes understanding of THR, RPE & goal METS by session 6, Documents in home exercise log/reports 30 min aerobic 5 day/wk by DC, Demonstrates accurate pulse taking by DC - Intervention & Plan Exercise Program Goals: Instruct on personal THR & RPE, Instruct on MET level & personal MET goal, Show patient to take own pulse /validate performance until accurate, Instruct on home exercise - Physical Activity Home Exercise Physical Activity - Home Exercise: Safe Exercise, Warm-up, Self-monitoring, Cool-Down, Home Exercise > 30 min Daily, Sitting Time <3 hours/daily - Outcomes & Goals Outcomes/Goals: Demonstrates correct Warm-up/exercise Cool-Down (S3) if = 2.5 METs, Verbalizes symptoms of exercise intolerance by Session 3 (S3), Demonstrate safe equipment use (S3) & follows exercise prescrition (6) - Intervention & Plan Plan/Intervention: Instruct warm-up & cool-down if exercising at > 2 METs, Instruct on symptoms of exercise intolerance & actions to take, Instruct & monitor on saf, Assess intial functional capacity & safety risk Nutrition - Initial Assessment - Program Goals Nutrition Program Goals: LDL <100 optimal. 100 - 129 Near optimal. 130 - 159 Borderline High. 160 - 189 High. Total Cholesterol <200 desirable. 200 - 239 Borderline High. >/= 240 High. HDL < 40 Low >/=60 High. Triglycerides <150 desirable. <199 optimal. VlDL 5 - 40. HgbA1C <7%. BMI <25 Patient has diagnosis of Hyperlipidemia (ICD E78)?: Yes - Visit Date of Assessment:: 08/02/20 Session #:: 0 - Pre-cardiac rehab evaluation - Cholesterol/Lipids Triglycerides (mg/dL): 108 - 06/12/2020 Total Cholesterol (mg/dL): 150 LDL Cholesterol (mg/dL): 129 HDL Cholesterol (mg/dL): 48 Determine presence & major risk factors that modify LDL goal: Hypertension or hypertensive medication, Family history of premature CHD in Male < 55 years: female <65 yearsFa, Age men > 45 years; women >/= 55 years Outcomes/Goals: Pt IDs own risk factors & lifestyle modifications by Session 10, Verbalizes symptoms of angina & response by session 3., Pt independently manages Intervention/Plan: Instruct on personal lipid levels & lipid goals/NCEP guidelines, Instruct on cholesterol Referral to dietitian:: Yes - Diabetes (Other Core Measures) Diabetes Type: Not Applicable - Weight Mgt (Other Care) Not Applicable: Yes Height: 5 ft 7 in Weight:: 162 lb BMI: 25.3 Diagnosis Overweight/Obesity BMI> 30% ICD-10 E66: No Diagnosis High BMI/Morbid Obesity BMI> 35% ICD-10 Z68: No Outcomes/Goals: Pt sets, maintains & shows weight loss goal & trend during rehab Intervention/Plan: Instruct on ideal BMI & set weight loss goal w/patient - Healthy Eating Habits Will attend diet classes:: Yes Outcomes/Goals:: Consume diet rich in vegs,fruits,whole grain/high fiber,fish,lean meat, Limit sat/trans fats,cholesterol & added salts & sugars Intervention/Plan:: Assess current eating habits Medical - Initial Assessment - Visit Date of Eval: 08/02/20 Session #:: 0 - Pre-cardiac rehab evaluation - Medication Compliance Preventative Medication(s):: Aspirin, Clopidogrel/P2Y12 inhibit, Statin/lipid, Beta kimberley H/O mental health issues: depression, anxiety, or addiction?: No Doesn?t believe in the benefits of treatment?: No Believes medications are unnecessary or harmful?: No Has a concern about medication side effects?: No Expresses concern over the cost of medications?: No Outcomes/Goals: Verbalizes medications,desired effect & common side effects @ DC, Pt self-reports following medication regimen, Keeps card in wallet w/medications listed by DC Interventions/plans: Instruct on medication effects & side effects, Review medication list w/patient every two weeks, Instruct importance of taking meds as ordered & assist problem solving - Tobacco Use Tobacco Use: Non-smoker - Hypertension Hypertension Diagnosis:: Hypertension ICD-10 I10 Resting Blood Pressure:: 160/90 Citizen [place] [employer] Hypertension Guidelines: [place] [employer] Hypertension Guidelines. Normal BP Less than 120/80. Elevated BP 120/80. Hypertension Stage 1: BP 130-139/80-89. Hypertesnion Stage 2: BP 140 or higher/90 or higher. Hypertension Crisis: BP higher than 180/120 Outcomes/Goals: Able to verbalize/achieve optimal blood pressure <130/80, Incorporates diet changes & exercise for blood pressure control by DC Interventions/plan: Instruct on optimal blood pressure, hypertension & medications, Instruct on effects of sodium, alcohol, stress, exercise &hypertension - Tobacco Cessation Referral Smoking Cessation Referral:: No Individual Education/Counseling:: No Education Schedule Given:: Yes Psychosocial - Initial Assess - VIsit Date of Eval: 08/02/20 Session #:: 0 - Pre-cardiac rehab evaluation Not Applicable: Yes History of previous Mental disease:: No - Target Goals Target Goals: Assess presence or absence of depression. Using a valid screening tool, maximizes coping skills. Positive support system - Psychosocial Test Tool Used:: Ranjeetans Delfin QOL Cardiac, PHQ-9 Questionnaire phq-9 Severity: Severity. 1-4 Minimal Depression. 5-9 Mild Depression. 10-14 Moderate Depression. 15-19 Moderately Sever Depression. 20-27 Severe Depression. Rule: - Referral to Behavioral Health PS - Interventions: Yes Attend Stress Management Classes, No Referral to Behavioral Health if PHQ-9 score >9:, No Referral to [facility], No Referral to Physician if PHQ-9 if score is 5-9: - Outcomes/Goals: See list Psychosocial Outcomes/Goals:: ID's personal stressors & 2 strategies to manage stress by discharge - Intervention/Plan: See List Interventions/Plan:: Assess stressors,coping strategies & signs of derpression on admission, Instruct/assist pt to develop coping & personal stress Mgt strategies, Instruct patient to recognize signs & symptoms of depression, Instruct patient to recog Patient Health Questionnaire Initial Assessment 1. Little interest or pleasure in doing things: Not at all 2. Feeling down, depressed, or hopeless: Not at all 3. Trouble falling or staying asleep, or sleeping too much: Nearly every day 4. Feeling tired or having little energy: Not at all 5. Poor appetite or overeating: Not at all 6. Feeling bad about yourself -- or that you are a failure or have let yourself or your family down: Not at all 7. Trouble concentrating on things, such as reading the newspaper or watching television: Not at all 8. Moving or speaking so slowly that other people could have noticed. Or the opposite - being so fidgety or restless that you have been moving around a lot more than usual: Not at all 9. Thoughts that you would be better off , or of hurting yourself in some way: Not at all How difficult have these problems made it for you to do your work, take care of things at home, or get along with other people?: Not difficult at all Total Score: 3 DESIRAE-Q SV Test - Statements CAD is a disease of the arteries in the heart: False Examples of risk factors for heart disease: True Angina is chest pain or discomfort: False The benefits of resistance training include: True Eating more meat and dairy products: False Anti-platelet medications such as aspirin are important: True The only effective way to manage stress: False An exercise warm-up slowly increases heart rate: True Prepared, processed foods usually have high sodium: True Depression is common after a heart attack: True The statin medications lower cholesterol: True To control blood pressure, lower the amount of sodium: True If someone gets chest discomfort during walking: False Transfats are partially hydrogenated vegetable oils: True Sleep apnea that is not treated increases the risk: True To control cholesterol, one should become a vegetarian: False Someone knows if he/she is exercising at the right level: True Diabetes cannot be prevented with exercise & health eating: False Stress is a large risk for heart attack: True A diet that can help lower blood pressure is rich in: True - Total Score Total Correct Responses: 18 Self-Efficacy Initial Assessment We would like to know how confident you are in doing certain activities. Please select your confidence level for:: Select your confidence level for the following using the scale 1-10 where 1 is not at all confident and 10 is totally confident. Your score is the average of all 6 responses. Fatigue: How confident are you that you can keep the fatigue caused by your disease from interfering with the things you want to do? Select Number: 9 Physical Discomfort or Pain: How confident are you that you can keep the physical discomfort or pain of your disease from interfering with the things you want to do? Select Number: 9 Emotional Distress: How confident are you that you can keep the emotional distress caused by your disease from interfering with the things you want to do? Select Number: 10 Other Symptoms or Health Problems: How confident are you that you can keep other symptoms or health problems from interfering with the things you want to do? Select Number: 9 Different Tasks and Activities: How confident are you that you can do the different tasks and activities needed to manage your health condition so as to reduce your need to see a doctor? Select Number: 9 Medication: How confident are you that you can do things other than just taking medication to reduce how much your illness affects your everyday life? Select Number: 9 Total Score:: 9 Nutrition Survey - Nutrition Survey Instructions Scoring Instructions: Scoring is as follows: Yes = 1 points. No = 0 point. Patient score that is >/=12 is considered to be at potential nutritional risk and could benefit from a referral to a registered dietitian. - Nutrition Survey Initial Have you lost >10 lbs over the past 2 months without trying?: No Are you following a special diet at home for diabetes, low fat, or low salt?: No Are you interested in meeting with a dietitian for help understanding your diet?: No Do you eat less than 3 meals a day?: Yes Do you eat fatty meats (white, sausage, ribs, etc), fried foods, desserts, large amounts of salad dressings, margarine, butter, or cheese most days?: Yes Do you have food allergies? [Enter types in comment field]: No Do you eat in restaurants more than 3 times a week?: No Do you season food with salt, seasoning salt, or garlic salt?: Yes Do you used canned, boxed, frozen meals, or soups, seasoning packets?: No Total Score:: 3
--- NOTE | 2020-08-02 12:48 | PCM.CR.HP2 ---
CR - History & Physical - General Arrival date:: 08/02/20 Arrival time:: 12:50 Date of Referral:: 07/23/20 Date of CR Evaluation:: 08/02/20 Referring Physician: Dr. Christiano Steinberg Primary Diagnosis: PCI w/coronary stenting, AAA Repair - History of Present Cardiac Event Onset Date: Enter Onset Date of cardiac illnesses in Comment field below Acute Myocardial Infarction within 12 months:: No - [place] 05/30/2007 PTCA or coronary stenting:: Yes - 05/30/2007 and recently 06/07/2020 Type of Symptoms:: Changed PCP, scheduled for CT due to past history and recent abdominal pain. Scheduled with Dr. Rodríguez heart cath was scheduled through Dr Steinberg done prior to surgery. Sent then to [place] due to high risk and had stents done then in 06/2020. Interventions with present event:: Scheduled again in [address] scan. - Medications Home Medications: Ambulatory Orders Medication Instructions Recorded Cholecalciferol (Vitamin D3) 2,000 unit PO DAILY 06/29/19 [Vitamin D3] Garlic 1,000 mg PO DAILY 06/29/19 Loperamide [Imodium] 2 mg PO Q2H PRN PRN 06/29/19 Red Rice Yeast 2 cap PO DAILY 06/29/19 Verapamil HCl [Verapamil ER] 120 mg PO QHS 06/29/19 budesonide 0.5 mg/2 mL suspension 0.5 mg INHALATION Q12H #180 ml 07/20/19 for nebulization ipratropium 20 mcg-albuterol 100 2 puff INHALATION PRN PRN #4 g 12/11/19 mcg/actuation mist for inhalation formoterol fumarate 20 mcg/2 mL 2 ml INHALATION Q12H #120 ml 01/17/20 solution for nebulization tamsulosin 0.4 mg capsule 0.4 mg PO QHS #90 cap 04/22/20 fluticasone propionate 50 1 spray INTRANASAL BID 05/09/20 mcg/actuation nasal spray,suspension [place]-3S/Dha/Epa/Fish Oil/D3 [Fish 1 ea PO DAILY 05/15/20 Gpl-Xfune-0-Vit D Softgel] Losartan Potassium [Cozaar] 25 mg PO DAILY 06/18/20 clopidogrel 75 mg tablet 75 mg PO QHS #90 tab 07/05/20 lorazepam 0.5 mg tablet 1.5 mg PO QHS PRN 30 Days #90 tab 08/02/20 - Allergies Allergies/Adverse Reactions: Allergies aspirin Allergy (Verified 06/25/20 05:37) Shortness of breath adhesive Adverse Reaction (Verified 06/25/20 05:37) Rash amoxicillin trihydrate [From Augmentin] Adverse Reaction (Verified 06/25/20 05:37) Other TINGLING ALL OVER atorvastatin calcium [From Lipitor] Adverse Reaction (Verified 06/25/20 05:37) Unknown metoprolol succinate [From Toprol XL] Adverse Reaction (Verified 06/25/20 05:37) Rash naproxen [From Naprosyn] Adverse Reaction (Verified 06/25/20 05:37) Shortness of breath paroxetine HCl [From Paxil] Adverse Reaction (Verified 06/25/20 05:37) Unknown potassium clavulanate [From Augmentin] Adverse Reaction (Verified 06/25/20 05:37) Unknown propoxyphene HCl [From Darvon] Adverse Reaction (Verified 06/25/20 05:37) Unknown sertraline HCl [From Zoloft] Adverse Reaction (Verified 06/25/20 05:37) Unknown simvastatin [From Zocor] Adverse Reaction (Verified 06/25/20 05:37) Unknown tiotropium bromide [From Spiriva with HandiHaler] Adverse Reaction (Verified 06/25/20 05:37) Other SHORT TEMPER RUBBING ALCOHOL Adverse Reaction (Uncoded 06/25/20 05:37) Rash - Sleep Disorder Evaluation Hx of Sleep Apnea: No Do you snore loudly (louder than talking or can be heard through closed doors)?: Yes - Insomnia. Do you often feel tired/ fatigued/ sleepy during daytime?: Yes Has anyone observed you stop breathing during sleep?: No History of Hypertension (for STOP score): Yes STOP Results: Positive Advanced Directives - Advanced Directives Power of Blender Machine Operator: Yes Living Will: Yes Advance Directives Information Provided: No Advance Directives on File: Yes DNR Order?:: No - MOLST See MOLST form: No Past Medical History - Covid-19 Screening Fever: No - No COVID-19 vaccines to date. Unexplained muscle aches: No Current respiratory symptoms: No Upper respiratory infections symptoms: No Gastro-intestinal symptoms: No Ker-Xeji-Kbfvtb symptoms: No Has tested positive for COVID-19 in last 30 days: No Had contact w/person w/symptoms or Covid-19 (+) last 14 days: No Has High Risk Exposures ID'd by Health dept/Inf Control team: No 65 years or older:: Yes Lives in Assisted Living facility:: No Has a chronic lung disease or moderate to severe asthma:: Yes Has a serious heart condition:: Yes Immunocompromised:: Yes Severely obese (Body Mass Index of 40 or higher):: No Diabetic:: No Has chronic kidney disease undergoing dialysis:: Yes Has liver disease:: No - Past Medical Illness Medical History: Past Medical History (Last Reviewed 06/12/20 @ 13:50 by Monalisa Lyon [employer]ING [employer]LEY REFINISHER, [employer]ING [employer]LEY REFINISHER-C) 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) Onset Date: 05/27/[address] elevation myocardial infarction (STEMI) (Resolved) Onset Date: 05/27/07 I25.2 Essential (primary) hypertension (Chronic) I10 Hyperlipidemia (Chronic) E78.5 Abdominal aortic aneurysm (AAA) greater than 5.5 cm in diameter in male (Chronic) I71.4 Left inguinal hernia (Chronic) K40.90 Iron deficiency (Chronic) E61.1 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 FEV1 64% of predicted Bronchiectasis (Suspected) J47.9 Hypoxia (Chronic) R09.02 2 L nasal cannula oxygen with sleep Asthma (Chronic) J45.909 History of colon cancer (Chronic) Z85.038 Insomnia (Chronic) G47.00 Allergy to dog dander J30.81 BPH (benign prostatic hyperplasia) N40.0 COPD (chronic obstructive pulmonary disease) J44.9 Personal history of other malignant neoplasm of rectum, rectosigmoid junction, and anus Z85.048 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 Coronary stents placed by Dr. Rodriguez @ [place] 06/07/2020 History of heart artery stent Onset Date: ~06/2020 Z95.5 x 5 at [facility] S/P AAA (abdominal aortic aneurysm) repair Onset Date: ~06/2020 Z98.890, Z86.79 History of left heart catheterization Onset Date: 05/24/20 Z98.890 09/30/00, 05/24/2020 History of right inguinal hernia repair Z98.890, Z87.19 History of tonsillectomy Z98.890, Z90.89 History of tonsillectomy and adenoidectomy Z98.890 Hx of appendectomy Z90.49 Hx of bilateral cataract extraction Z98.41, Z98.42 Hx of umbilical hernia repair Z98.890, Z87.19 Status post laparoscopic colectomy Z90.49 history of right eye surgery Surgical History: angioplasty, colectomy, - - Family History Summary Family History: Family History (Last Reviewed 06/12/20 @ 13:50 by Monalisa Lyon B[employer]LING [employer]LEY REFINISHER, B[employer]LEY REFINISHER-C) Father Heart disease Hypertension High cholesterol CVA (cerebral vascular accident) Mother Dementia Social History - Smoking History Smoking Status: Former smoker Years Smokin Packs Smoked per Day: 1 Hx Tobacco Use: No Hx Smoking Exposure: No - Alcohol Use Alcohol Usage: No - Substance Abuse Hx Substance Use: No - Occupation Occupation (List type of work in comments):: Retired - Hobbies, Recreation, Social Activities Hobbies: Sports - fishing, Woodworking - woodcarving and stained glass, Other Recreational Activities: I am able to engage in most, but not all activities Social Environment - Status Marital Status: - Current Living Arrangements Living Environment:: Spouse - Children How many children do you have?: 2 Do any of your children live nearby?: Yes - Safety Do you feel safe in your surroundings?: Yes Review of Systems - Review of Systems Hints: Right click = Denies ([place]). Left click = Reports ([place]) Review of Present Symptoms: Reports: Shortness of Breath with Exertion, Wound Healing, Appetite - Normal, Sleep - Normal. Denies: Shortness of Breath at Rest, Angina, Dizziness/Lightheadedness, Fatigue, Heart Arrhythmia/Irregularities, Appetite - Special Diet, Sexual Changes - Pain Is Patient Pain Free?: Yes Pain Location: none Pain Level: 0/10 Risk Factor Assessment - Chief Complaint Chief Complaint: 75 yr old male patient of Dr. Christiano Steinberg who recently had PCI intervention and coronary stent palcement. Patient then had AAA repair by Dr. Sawyer Rodríguez. - Vital Signs Temperature: 97.2 F Respiratory Rate: 18 Pulse Ox: 96 Blood Pressure: 160/88 - Pulse Pulse Rate: 94 Pulse Rhythm: Regular - Hypertension Blood Pressure Sitting - Left Arm: 160/88 - Blood Cholesterol/Lipids Total Cholesterol (mg/dL) Goal = less than 200 mg/dL: 150 - 06/12/2020 HDL Cholesterol (mg/dL) Goal = less than 40 mg/dL: 48 LDL Cholesterol (mg/dL) Goal = less than 70 mg/dL: 129 Triglycerides (mg/dL) Goal = less than 150 mg/dL: 108 - Diabetes Nutrition Referral for Diabetes: No - Obesity Height: 5 ft 7 in Weight:: 162 lb Weight in Pounds: 162.0 lbs Weight Source: Standing Scale Body Mass Index (BMI): 25.3 Nutritional Referral for Obesity: No - Physical Inactivity Physical Inactivity: Recreational activity - Risk Stratification Risk Guidelines: Lowest Risk: Risk Factor for Smoking, Risk Factor for Dyslipidemia, Risk Factor for Diabetes, Risk Factor for Obesity, Risk Factor for Sedentary Lifestyle, Risk Factor for Depression, Moderate Risk: Risk Factor for Hypertension - For Smoking Smoking Risk Guidelines: Smoking Low Risk: None or quit greater than 6 months ago. Smoking Moderate Risk: Smoker or quit 6 months or less ago. Smoking High Risk: Smoker - For Dyslipidemia Dyslipidemia Risk Guidelines: Low Risk: Moderate Risk: High Risk: 15-25% fat 25.1-29% fat >/= 30% fat. <7% sat fat 7-9% sat fat >9% sat fat. <150 mg chol 150-299 mg chol >/= 300 mg chol. LDL <100 LDL 100-129 LDL >/= 130. Chol/HDL ratio <5.0 Chol/HDL ratio 5.0-6.0 Chol/HDL ratio >6.0. Triglycerides <100 Triglycerides 100-149 Triglycerides >/= 150 - For Diabetes Mellitus Diabetes Risk Guidelines: Diabetes Low Risk: HgA1c <6.5% and/or FBG <120. Diabetes Moderate Risk: HgA1c 6.6-7.9% and/or FBG 120-180. Diabetes High Risk: HgA1c >/= 8% and/or FBG >180 - For Obesity/Overweight Obesity/Overweight Risk Guidelines: Obesity Low Risk: BMI <25.0. Obesity Moderate Risk: BMI 25-29.9. Obesity High Risk: BMI >/= 30.0 - For Hypertension Hypertension Risk Guidelines: Hypertension Low Risk: Systolic <120 and Diastolic <80. Hypertension Moderate Risk: Systolic 120-139 and Diastolic 80-89. Hypertension High Risk: Systolic >/= 140 and Diastolic >/= 90 - For Sedentary Lifestyle Sedentary Lifestyle Risk Guidelines: Sedentary Lifestyle Low Risk: >/= 1,500 kcal/week. Sedentary Lifestyle Moderate Risk: 700-1,499 kcal/week. Sedentary Lifestyle High Risk: < 700 kcal/week - For Depression Depression Risk Guidelines: Depression Low Risk: Not clinically depressed. Depression Moderate Risk: Mildly depressed. Depression High Risk: Clinically depressed - Family History Family History: Family History (Last Reviewed 06/12/20 @ 13:50 by Monalisa Lyon BOWLING ALLEY REFINISHER, BOWLING ALLEY REFINISHER-C) Father Heart disease Hypertension High cholesterol CVA (cerebral vascular accident) Mother Dementia Motivation - Motivation to Participate On a scale of 1 to 10, how prepared are you to commit to attending program?: 10 What do you see as barriers to successfully being able to complete the program?: none What do you see as the benefits of succesfully completing the program? In other words, what do you hope to get out of participating in the program?: healthier, to see what I can accomplish, get back in shape. Pursue ADLs. Are there issues you are dealing with that will interfere with completing the program?: none Do you have a spouse or signficant other, family or friends who will help support you to complete the program?: Yes
[2020-08-02 13:06] VITALS: BP 160/90; BMI 25.3
[2020-08-02 13:22] VITALS: BP 160/88; PULSE 94; RESP 18; TEMP 36.2; O2SAT 96; BMI 25.3
== END ==
PROVIDERS: PCP Internal Medicine; Referring Provider Internal Medicine Cardiovascular Disease; Visit Provider Internal Medicine Cardiovascular Disease
DX: J45.909 Unspecified asthma, uncomplicated (principal); J44.9 Chronic obstructive pulmonary disease, unspecified; E61.1 Iron deficiency; E78.5 Hyperlipidemia, unspecified; I10 Essential (primary) hypertension; Z85.048 Personal history of other malignant neoplasm of rectum, rectosigmoid junction, and anus

== ENCOUNTER 2020-08-30 09:15 | Outpatient (RCR) | payer MEDICARE, OTHER, SELFPAY ==
[2020-08-02 13:06] VITALS: BMI 25.3
[2020-08-02 13:22] VITALS: BMI 25.3
== END 2020-08-30 23:59 ==
LOC: CR 09:15
PROVIDERS: PCP Internal Medicine; Referring Provider Internal Medicine Cardiovascular Disease; Visit Provider Internal Medicine Cardiovascular Disease
DX: I25.10 Atherosclerotic heart disease of native coronary artery without angina pectoris (principal); I25.2 Old myocardial infarction; Z98.890 Other specified postprocedural states; Z95.5 Presence of coronary angioplasty implant and graft
CPT/HCPCS: 93798

== ENCOUNTER 2020-09-27 09:15 | Outpatient (RCR) | payer MEDICARE, OTHER, SELFPAY ==
[2020-08-02 13:06] VITALS: BMI 25.3
[2020-08-09 10:57] VITALS: BMI 24.9
--- NOTE | 2020-09-02 08:10 | PCM.CR.ITP ---
Diagnosis - General Information Admitting Diagnosis: PCI w/coronary stent Exercise - 30-day Assessment - Visit Date of Eval: 09/02/20 Session #:: 9 - Physician Prescribed Exercise Modalities: Treadmill, Airdyne, NuStep Frequency: 3x/week for 12 weeks [36 sessions] Intensity: 60-80% of age predicted maximum heart rate reserve Current METSs:: 4.0 increase from 3.0 Target Heart Rate:: 94-122 Current RPE:: 11-13 Maximum Excercise HR:: 133 Resting Blood Pressure: 128/66 Maximum Exercise Blood Pressure: 180/74 EKG Type: NSR to sinus tachycardia w/rare PACs and occas. PVCs. - Outcomes & Goals Goals:: Verbalizes understanding of THR, RPE & goal METS by session 6, Documents in home exercise log/reports 30 min aerobic 5 day/wk by DC, Demonstrates accurate pulse taking by DC Comment:: Monitoring SpO2 w/exercise due to COPD; SpO2s> 92% on room air. - Intervention & Plan Exercise Program Goals: Instruct on personal THR & RPE, Instruct on MET level & personal MET goal, Show patient to take own pulse /validate performance until accurate, Instruct on home exercise - 30-day Reassessments 30 day Reassessments:: Progressing - Physical Activity Home Exercise Physical Activity - Home Exercise: Safe Exercise, Warm-up, Self-monitoring, Cool-Down, Home Exercise > 30 min Daily, Sitting Time <3 hours/daily - Outcomes & Goals Outcomes/Goals: Demonstrates correct Warm-up/exercise Cool-Down (S3) if = 2.5 METs, Verbalizes symptoms of exercise intolerance by Session 3 (S3), Demonstrate safe equipment use (S3) & follows exercise prescrition (6) - Intervention & Plan Plan/Intervention: Instruct warm-up & cool-down if exercising at > 2 METs, Instruct on symptoms of exercise intolerance & actions to take, Instruct & monitor on saf, Assess intial functional capacity & safety risk - 30-day Reassessments 30 day Reassessments:: Progressing Nutrition - Initial Assessment Nutrition - 30-Day Assessment - Program Goals Nutrition Program Goals: LDL <100 optimal. 100 - 129 Near optimal. 130 - 159 Borderline High. 160 - 189 High. Total Cholesterol <200 desirable. 200 - 239 Borderline High. >/= 240 High. HDL < 40 Low >/=60 High. Triglycerides <150 desirable. <199 optimal. VlDL 5 - 40. HgbA1C <7%. BMI <25 Patient has diagnosis of Hyperlipidemia (ICD E78)?: Yes - Visit Date of Assessment:: 09/02/20 Session #:: 9 - Cholesterol/Lipids Triglycerides (mg/dL): 108 - 11/24/2016 Total Cholesterol (mg/dL): 199 LDL Cholesterol (mg/dL): 129 HDL Cholesterol (mg/dL): 48 Determine presence & major risk factors that modify LDL goal: Hypertension or hypertensive medication, Family history of premature CHD in Male < 55 years: female <65 yearsFa, Age men > 45 years; women >/= 55 years Outcomes/Goals: Pt IDs own risk factors & lifestyle modifications by Session 10, Verbalizes symptoms of angina & response by session 3., Pt independently manages Intervention/Plan: Instruct on personal lipid levels & lipid goals/NCEP guidelines, Instruct on cholesterol Referral to dietitian:: Yes - Medical Nutrition Therapy 30-day Reassessments:: Progressing - Diabetes (Other Core Measures) Diabetes Type: Not Applicable - Weight Mgt (Other Care) Not Applicable: Yes Height: 5 ft 7 in Weight:: 161 lb BMI: 25.2 Diagnosis Overweight/Obesity BMI> 30% ICD-10 E66: No Diagnosis High BMI/Morbid Obesity BMI> 35% ICD-10 Z68: No Outcomes/Goals: Pt sets, maintains & shows weight loss goal & trend during rehab Intervention/Plan: Instruct on ideal BMI & set weight loss goal w/patient 30 day Reassessments:: Met - Healthy Eating Habits Will attend diet classes:: Yes Outcomes/Goals:: Consume diet rich in vegs,fruits,whole grain/high fiber,fish,lean meat, Limit sat/trans fats,cholesterol & added salts & sugars Intervention/Plan:: Assess current eating habits 30-day Reassessments:: Met Nutrition - 60-Day Assessment Nutrition - 90-Day Assessment Nutrition - Final Assessment Medical - Initial Assessment Medical- 30-Day Assessment - Visit Date of Eval: 09/02/20 Session #:: 9 - Medication Compliance Preventative Medication(s):: Aspirin, Clopidogrel/P2Y12 inhibit, Statin/lipid, Beta kimberley H/O mental health issues: depression, anxiety, or addiction?: No Doesn?t believe in the benefits of treatment?: No Believes medications are unnecessary or harmful?: No Has a concern about medication side effects?: No Expresses concern over the cost of medications?: No Outcomes/Goals: Verbalizes medications,desired effect & common side effects @ DC, Pt self-reports following medication regimen, Keeps card in wallet w/medications listed by DC Interventions/plans: Instruct on medication effects & side effects, Review medication list w/patient every two weeks, Instruct importance of taking meds as ordered & assist problem solving 30-day Reassessments:: Progressing - Tobacco Use Tobacco Use: Non-smoker - Hypertension Hypertension Diagnosis:: Hypertension ICD-10 I10 Resting Blood Pressure:: 128/66 [employer] [employer] Hypertension Guidelines: [place] [employer] Hypertension Guidelines. Normal BP Less than 120/80. Elevated BP 120/80. Hypertension Stage 1: BP 130-139/80-89. Hypertesnion Stage 2: BP 140 or higher/90 or higher. Hypertension Crisis: BP higher than 180/120 Peak Exercise Blood Pressure:: 180/74 Outcomes/Goals: Able to verbalize/achieve optimal blood pressure <130/80, Incorporates diet changes & exercise for blood pressure control by DC Interventions/plan: Instruct on optimal blood pressure, hypertension & medications, Instruct on effects of sodium, alcohol, stress, exercise &hypertension 30 day Reassessments:: Progressing - Tobacco Cessation Referral Smoking Cessation Referral:: No Individual Education/Counseling:: No Education Schedule Given:: Yes Medical- 60-Day Assessment Medical- 90-Day Assessment Medical - Final Assessment Psychosocial - Initial Assess Psychosocial - 30-Day Assess - VIsit Date of Eval: 09/02/20 Session #:: 9 Not Applicable: Yes History of previous Mental disease:: No - Psychosocial Test Tool Used:: PHQ-9 Questionnaire phq-9 Severity: Severity. 1-4 Minimal Depression. 5-9 Mild Depression. 10-14 Moderate Depression. 15-19 Moderately Sever Depression. 20-27 Severe Depression. Rule: - Referral to Behavioral Health PS - Interventions: Yes Attend Stress Management Classes, No Referral to Behavioral Health if PHQ-9 score >9:, No Referral to [facility], No Referral to Physician if PHQ-9 if score is 5-9: - Outcomes/Goals: See list Psychosocial Outcomes/Goals:: ID's personal stressors & 2 strategies to manage stress by discharge - Intervention/Plan: See List Interventions/Plan:: Assess stressors,coping strategies & signs of derpression on admission, Instruct/assist pt to develop coping & personal stress Mgt strategies, Instruct patient to recognize signs & symptoms of depression, Instruct patient to recog - 30-day Reassessments: 30 day Reassessments:: Progressing Psychosocial - 60-Day Assess Psychosocial - 90-Day Assess Psychosocial - Final Assessmen Patient Health Questionnaire 30-Day Re-eval Assessment 1. Little interest or pleasure in doing things: Not at all 2. Feeling down, depressed, or hopeless: Not at all 3. Trouble falling or staying asleep, or sleeping too much: More than half the days 4. Feeling tired or having little energy: Not at all 5. Poor appetite or overeating: Not at all 6. Feeling bad about yourself -- or that you are a failure or have let yourself or your family down: Not at all 7. Trouble concentrating on things, such as reading the newspaper or watching television: Not at all 8. Moving or speaking so slowly that other people could have noticed. Or the opposite - being so fidgety or restless that you have been moving around a lot more than usual: Not at all 9. Thoughts that you would be better off , or of hurting yourself in some way: Not at all Total Score: 2 Self-Efficacy 30-Day Re-eval Assessment We would like to know how confident you are in doing certain activities. Please select your confidence level for:: Select your confidence level for the following using the scale 1-10 where 1 is not at all confident and 10 is totally confident. Your score is the average of all 6 responses. Fatigue: How confident are you that you can keep the fatigue caused by your disease from interfering with the things you want to do? Select Number: 9 Physical Discomfort or Pain: How confident are you that you can keep the physical discomfort or pain of your disease from interfering with the things you want to do? Select Number: 9 Emotional Distress: How confident are you that you can keep the emotional distress caused by your disease from interfering with the things you want to do? Select Number: 10 Other Symptoms or Health Problems: How confident are you that you can keep other symptoms or health problems from interfering with the things you want to do? Select Number: 10 Different Tasks and Activities: How confident are you that you can do the different tasks and activities needed to manage your health condition so as to reduce your need to see a doctor? Select Number: 10 Medication: How confident are you that you can do things other than just taking medication to reduce how much your illness affects your everyday life? Select Number: 9 Total Score:: 9 Nutrition Survey
[2020-09-02 08:19] VITALS: BP 128/66; BP 180/74; BMI 25.2
--- NOTE | 2020-10-01 07:28 | PCM.CR.ITP ---
Diagnosis Exercise - 60-day Assessment - Visit Date of Eval: 10/01/20 Session #:: 20 - Physician Prescribed Exercise Modalities: Treadmill, Rower, NuStep Frequency: 3x/week for 12 weeks [36 sessions] Intensity: 60-80% of age predicted maximum heart rate reserve Current METSs:: 4.0 Target Heart Rate:: 94-122 Current RPE:: 12 Maximum Excercise HR:: 124 also we are SpO2 monitoring; indicates SPO2s at 89-90% during exercise. Resting Blood Pressure: 138/62 EKG Type: NSR to sinus tach with occas. PVCs. - Outcomes & Goals Goals:: Verbalizes understanding of THR, RPE & goal METS by session 6, Documents in home exercise log/reports 30 min aerobic 5 day/wk by DC, Demonstrates accurate pulse taking by DC - Intervention & Plan Exercise Program Goals: Instruct on personal THR & RPE, Instruct on MET level & personal MET goal, Show patient to take own pulse /validate performance until accurate, Instruct on home exercise - 30-day Reassessments 30 day Reassessments:: Progressing - Physical Activity Home Exercise Physical Activity - Home Exercise: Safe Exercise, Warm-up, Self-monitoring, Cool-Down, Home Exercise > 30 min Daily, Sitting Time <3 hours/daily - Outcomes & Goals Outcomes/Goals: Demonstrates correct Warm-up/exercise Cool-Down (S3) if = 2.5 METs, Verbalizes symptoms of exercise intolerance by Session 3 (S3), Demonstrate safe equipment use (S3) & follows exercise prescrition (6) - Intervention & Plan Plan/Intervention: Instruct warm-up & cool-down if exercising at > 2 METs, Instruct on symptoms of exercise intolerance & actions to take, Instruct & monitor on saf, Assess intial functional capacity & safety risk - 30-day Reassessments 30 day Reassessments:: Progressing Nutrition - Initial Assessment Nutrition - 30-Day Assessment Nutrition - 60-Day Assessment - Program Goals Nutrition Program Goals: LDL <100 optimal. 100 - 129 Near optimal. 130 - 159 Borderline High. 160 - 189 High. Total Cholesterol <200 desirable. 200 - 239 Borderline High. >/= 240 High. HDL < 40 Low >/=60 High. Triglycerides <150 desirable. <199 optimal. VlDL 5 - 40. HgbA1C <7%. BMI <25 Patient has diagnosis of Hyperlipidemia (ICD E78)?: Yes - Visit Date of Assessment:: 10/01/20 Session #:: 23 - Cholesterol/Lipids Triglycerides (mg/dL): 108 Total Cholesterol (mg/dL): 199 LDL Cholesterol (mg/dL): 129 HDL Cholesterol (mg/dL): 48 Determine presence & major risk factors that modify LDL goal: Hypertension or hypertensive medication, Family history of premature CHD in Male < 55 years: female <65 yearsFa, Age men > 45 years; women >/= 55 years Outcomes/Goals: Pt IDs own risk factors & lifestyle modifications by Session 10, Verbalizes symptoms of angina & response by session 3., Pt independently manages Intervention/Plan: Instruct on personal lipid levels & lipid goals/NCEP guidelines, Instruct on cholesterol Referral to dietitian:: No - Patient declined services 30-day Reassessments:: Progressing - Diabetes (Other Core Measures) Diabetes Type: Not Applicable - Weight Mgt (Other Care) Not Applicable: Yes Height: 5 ft 7 in Weight:: 157 lb BMI: 24.5 Diagnosis Overweight/Obesity BMI> 30% ICD-10 E66: No Diagnosis High BMI/Morbid Obesity BMI> 35% ICD-10 Z68: No Outcomes/Goals: Pt sets, maintains & shows weight loss goal & trend during rehab Intervention/Plan: Instruct on ideal BMI & set weight loss goal w/patient 30 day Reassessments:: Met - Healthy Eating Habits Will attend diet classes:: Yes Outcomes/Goals:: Consume diet rich in vegs,fruits,whole grain/high fiber,fish,lean meat, Limit sat/trans fats,cholesterol & added salts & sugars Intervention/Plan:: Assess current eating habits 30-day Reassessments:: Met - Education Gave educational materials for:: Healthy eating Nutrition - 90-Day Assessment Nutrition - Final Assessment Medical - Initial Assessment Medical- 30-Day Assessment Medical- 60-Day Assessment - Visit Date of Eval: 10/01/20 Session #:: 23 - Medication Compliance Preventative Medication(s):: Aspirin, Clopidogrel/P2Y12 inhibit, Statin/lipid, Beta kimberley H/O mental health issues: depression, anxiety, or addiction?: No Doesn?t believe in the benefits of treatment?: No Believes medications are unnecessary or harmful?: No Has a concern about medication side effects?: No Expresses concern over the cost of medications?: No Outcomes/Goals: Verbalizes medications,desired effect & common side effects @ DC, Pt self-reports following medication regimen, Keeps card in wallet w/medications listed by DC Interventions/plans: Instruct on medication effects & side effects, Review medication list w/patient every two weeks, Instruct importance of taking meds as ordered & assist problem solving 30-day Reassessments:: Met - Tobacco Use Tobacco Use: Non-smoker - Hypertension Hypertension Diagnosis:: Hypertension ICD-10 I10 Resting Blood Pressure:: 138/62 [place] [employer] Hypertension Guidelines: [place] [employer] Hypertension Guidelines. Normal BP Less than 120/80. Elevated BP 120/80. Hypertension Stage 1: BP 130-139/80-89. Hypertesnion Stage 2: BP 140 or higher/90 or higher. Hypertension Crisis: BP higher than 180/120 Peak Exercise Blood Pressure:: 158/68 Outcomes/Goals: Able to verbalize/achieve optimal blood pressure <130/80, Incorporates diet changes & exercise for blood pressure control by DC Interventions/plan: Instruct on optimal blood pressure, hypertension & medications, Instruct on effects of sodium, alcohol, stress, exercise &hypertension 30 day Reassessments:: Met - Tobacco Cessation Referral Smoking Cessation Referral:: No Individual Education/Counseling:: No Education Schedule Given:: Yes Medical- 90-Day Assessment Medical - Final Assessment Psychosocial - Initial Assess Psychosocial - 30-Day Assess Psychosocial - 60-Day Assess - VIsit Date of Eval: 10/01/20 Session #:: 23 Not Applicable: Yes History of previous Mental disease:: No - Psychosocial Test Tool Used:: PHQ-9 Questionnaire phq-9 Severity: Severity. 1-4 Minimal Depression. 5-9 Mild Depression. 10-14 Moderate Depression. 15-19 Moderately Sever Depression. 20-27 Severe Depression. Rule: - Referral to Behavioral Health PS - Interventions: Yes Attend Stress Management Classes, No Referral to Behavioral Health if PHQ-9 score >9:, No Referral to [facility], No Referral to Physician if PHQ-9 if score is 5-9: - Outcomes/Goals: See list Psychosocial Outcomes/Goals:: ID's personal stressors & 2 strategies to manage stress by discharge - Intervention/Plan: See List Interventions/Plan:: Assess stressors,coping strategies & signs of derpression on admission, Instruct/assist pt to develop coping & personal stress Mgt strategies, Instruct patient to recognize signs & symptoms of depression, Instruct patient to recog - 30-day Reassessments: 30 day Reassessments:: Met Psychosocial - 90-Day Assess Psychosocial - Final Assessmen Patient Health Questionnaire 60-Day Re-eval Assessment 1. Little interest or pleasure in doing things: Not at all 2. Feeling down, depressed, or hopeless: Not at all 3. Trouble falling or staying asleep, or sleeping too much: More than half the days 4. Feeling tired or having little energy: Not at all 5. Poor appetite or overeating: Not at all 6. Feeling bad about yourself -- or that you are a failure or have let yourself or your family down: Not at all 7. Trouble concentrating on things, such as reading the newspaper or watching television: Not at all 8. Moving or speaking so slowly that other people could have noticed. Or the opposite - being so fidgety or restless that you have been moving around a lot more than usual: Not at all 9. Thoughts that you would be better off , or of hurting yourself in some way: Not at all Total Score: 2 Self-Efficacy 60-Day Re-eval Assessment We would like to know how confident you are in doing certain activities. Please select your confidence level for:: Select your confidence level for the following using the scale 1-10 where 1 is not at all confident and 10 is totally confident. Your score is the average of all 6 responses. Fatigue: How confident are you that you can keep the fatigue caused by your disease from interfering with the things you want to do? Select Number: 9 Physical Discomfort or Pain: How confident are you that you can keep the physical discomfort or pain of your disease from interfering with the things you want to do? Select Number: 10 Emotional Distress: How confident are you that you can keep the emotional distress caused by your disease from interfering with the things you want to do? Select Number: 10 Other Symptoms or Health Problems: How confident are you that you can keep other symptoms or health problems from interfering with the things you want to do? Select Number: 10 Different Tasks and Activities: How confident are you that you can do the different tasks and activities needed to manage your health condition so as to reduce your need to see a doctor? Select Number: 10 Medication: How confident are you that you can do things other than just taking medication to reduce how much your illness affects your everyday life? Select Number: 10 Total Score:: 9 Nutrition Survey
[2020-10-01 07:34] VITALS: BP 138/62; BP 158/68; BMI 24.5
== END 2020-09-30 23:59 ==
LOC: CR 09:15
PROVIDERS: PCP Internal Medicine; Referring Provider Internal Medicine Cardiovascular Disease; Visit Provider Internal Medicine Cardiovascular Disease
DX: I25.10 Atherosclerotic heart disease of native coronary artery without angina pectoris (principal); I25.2 Old myocardial infarction; Z98.890 Other specified postprocedural states; Z95.5 Presence of coronary angioplasty implant and graft
CPT/HCPCS: 93798

== ENCOUNTER → 2020-10-02 12:46 | Outpatient (CLI) | payer MEDICARE, OTHER, SELFPAY ==
[2020-08-09 10:57] VITALS: BMI 24.9
[2020-09-02 08:19] VITALS: BMI 25.2
[2020-10-01 07:34] VITALS: BMI 24.5
--- NOTE | 2020-10-02 12:59 | CT_ITS ---
STUDY: CTA OF THE ABDOMINAL AORTA AND BILATERAL LOWER EXTREMITIES REASON FOR EXAM: Male, 75 years old. aaa RADIATION DOSAGE (If Supplied By Facility): CTDIvol = ( 31.34 ) mGy, DLP = ( 460.50 ) mGycm TECHNIQUE: Axial CT angiography multi-detector data acquisition was obtained from the to the following intravenous administration of IV 100mL Isovue-370. Axial images and MIP images were reconstructed from the axial data set. Post-processing of the angiographic images was performed, with multiplanar reformation and 3D reconstruction. Individualized dose optimization techniques were used for this CT. TECHNICAL QUALITY: Good COMPARISON: 01 May 2020 Descriptors of Narrowing: None (0%) Mild (< 50%) Moderate (50-70%) Severe (70-90%) Subtotal/Total Occlusion (90-100%) Non-Evaluable (technically non-diagnostic FINDINGS: Infrarenal abdominal aortic aneurysm has been stented with an aorta biiliac endograft. The aneurysm measures 5.8 cm in maximal transverse dimension measured in the coronal plane at the level of the L4 inferior endplate corresponding to the maximal diameter. There is no endoleak on single phase images. Proximal common and external iliac arteries are patent. Internal iliac arteries are atherosclerotic and possibly contains an elevated plaques or chronic short segment dissections. Solid organs are normal. There is no intestinal obstruction. Lung bases are severely emphysematous. Coronary arteries are at least moderately to severely diseased. The small hiatal hernia. Osseous structures are intact. CT/CTA Abdomen W/WO Contrast IMPRESSION: 1. Aortobiiliac stent endograft. 2. Maximal aneurysm diameter 5.8 cm, previously 5.9. Electronically Signed: Wei Aburto MD at 20:27 EDT Tel , Service support ,
[2020-10-02 13:18] LABS: Anion Gap 6 (5-15); BUN 21 mg/dL (7-18); BUN/Creat Ratio 14.8 RATIO (10-20); Calcium,Total 9.3 mg/dL (8.5-10.1); Chloride 109 mmol/L (98-107); Creatinine, Serum 1.42 mg/dL (0.70-1.30); EST Glomerular Filtration Rate 52 mL/min (>60); Est Glom Filt Rate - Afr Amer 62 mL/min (>60); Glucose 114 mg/dL (74-106); Potassium 3.9 mmol/L (3.5-5.1); Sodium Level 142 mmol/L (136-145)
[2020-10-02] MEDS: 0.9% Normal Saline 1,000 ML 999 ML IV (13:29)
[2020-10-02 13:31] VITALS: BP 124/76; PULSE 75; RESP 16; TEMP 36.6; O2SAT 94; BMI 24.5
== END ==
PROVIDERS: PCP Internal Medicine; Referring Provider Surgery; Visit Provider Surgery
DX: I71.4 Abdominal aortic aneurysm, without rupture (principal)
CPT/HCPCS: 36415; 74175; 80048; J7030; Q9967

== ENCOUNTER 2020-10-30 09:15 | Outpatient (RCR) | payer MEDICARE, OTHER, SELFPAY ==
[2020-08-09 10:57] VITALS: BMI 24.9
[2020-09-02 08:19] VITALS: BMI 25.2
[2020-10-01 00:33] VITALS: BP 128/66; BP 180/74
--- NOTE | 2020-10-30 07:09 | PCM.CR.ITP ---
Diagnosis Exercise - 90-day Assessment - Visit Date of Eval: 10/30/20 Session #:: 31 - Physician Prescribed Exercise Modalities: Treadmill, Rower, NuStep Frequency: 3x/week for 12 weeks [36 sessions] Intensity: 60-80% of age predicted maximum heart rate reserve Current METSs:: 4.0 limited by desaturation <90% on room air. Target Heart Rate:: 94-122 Current RPE:: 12-13 Maximum Excercise HR:: 114 Resting Blood Pressure: 130/64 Maximum Exercise Blood Pressure: 140/50 EKG Type: NSR to sinus tach with no ectopy. - Outcomes & Goals Goals:: Verbalizes understanding of THR, RPE & goal METS by session 6, Documents in home exercise log/reports 30 min aerobic 5 day/wk by DC, Demonstrates accurate pulse taking by DC - Intervention & Plan Exercise Program Goals: Instruct on personal THR & RPE, Instruct on MET level & personal MET goal, Show patient to take own pulse /validate performance until accurate, Instruct on home exercise - 30-day Reassessments 30 day Reassessments:: Progressing - Physical Activity Home Exercise Physical Activity - Home Exercise: Safe Exercise, Warm-up, Self-monitoring, Cool-Down, Home Exercise > 30 min Daily, Sitting Time <3 hours/daily - Outcomes & Goals Outcomes/Goals: Demonstrates correct Warm-up/exercise Cool-Down (S3) if = 2.5 METs, Verbalizes symptoms of exercise intolerance by Session 3 (S3), Demonstrate safe equipment use (S3) & follows exercise prescrition (6) - Intervention & Plan Plan/Intervention: Instruct warm-up & cool-down if exercising at > 2 METs, Instruct on symptoms of exercise intolerance & actions to take, Instruct & monitor on saf, Assess intial functional capacity & safety risk - 30-day Reassessments 30 day Reassessments:: Progressing Nutrition - Initial Assessment Nutrition - 30-Day Assessment Nutrition - 60-Day Assessment Nutrition - 90-Day Assessment - Program Goals Nutrition Program Goals: LDL <100 optimal. 100 - 129 Near optimal. 130 - 159 Borderline High. 160 - 189 High. Total Cholesterol <200 desirable. 200 - 239 Borderline High. >/= 240 High. HDL < 40 Low >/=60 High. Triglycerides <150 desirable. <199 optimal. VlDL 5 - 40. HgbA1C <7%. BMI <25 Patient has diagnosis of Hyperlipidemia (ICD E78)?: Yes - Visit Date of Assessment:: 10/30/20 Session #:: 31 - Cholesterol/Lipids Determine presence & major risk factors that modify LDL goal: Hypertension or hypertensive medication, Family history of premature CHD in Male < 55 years: female <65 yearsFa, Age men > 45 years; women >/= 55 years Outcomes/Goals: Pt IDs own risk factors & lifestyle modifications by Session 10, Verbalizes symptoms of angina & response by session 3., Pt independently manages Intervention/Plan: Instruct on personal lipid levels & lipid goals/NCEP guidelines, Instruct on cholesterol Referral to dietitian:: No 30-day Reassessments:: Progressing - Diabetes (Other Core Measures) Diabetes Type: Not Applicable - Weight Mgt (Other Care) Not Applicable: Yes Height: 5 ft 7 in - Weight:: 155 lb BMI: 24.3 Diagnosis Overweight/Obesity BMI> 30% ICD-10 E66: No Diagnosis High BMI/Morbid Obesity BMI> 35% ICD-10 Z68: No Outcomes/Goals: Pt sets, maintains & shows weight loss goal & trend during rehab Intervention/Plan: Instruct on ideal BMI & set weight loss goal w/patient 30 day Reassessments:: Met - Healthy Eating Habits Will attend diet classes:: Yes Outcomes/Goals:: Consume diet rich in vegs,fruits,whole grain/high fiber,fish,lean meat, Limit sat/trans fats,cholesterol & added salts & sugars Intervention/Plan:: Assess current eating habits 30-day Reassessments:: Met Nutrition - Final Assessment Medical - Initial Assessment Medical- 30-Day Assessment Medical- 60-Day Assessment Medical- 90-Day Assessment - Visit Date of Eval: 10/30/20 Session #:: 31 - Medication Compliance Preventative Medication(s):: Aspirin, Clopidogrel/P2Y12 inhibit, Statin/lipid, Beta kimberley H/O mental health issues: depression, anxiety, or addiction?: No Doesn?t believe in the benefits of treatment?: No Believes medications are unnecessary or harmful?: No Has a concern about medication side effects?: No Expresses concern over the cost of medications?: No Outcomes/Goals: Verbalizes medications,desired effect & common side effects @ DC, Pt self-reports following medication regimen, Keeps card in wallet w/medications listed by DC Interventions/plans: Instruct on medication effects & side effects, Review medication list w/patient every two weeks, Instruct importance of taking meds as ordered & assist problem solving 30-day Reassessments:: Met - Tobacco Use Tobacco Use: Non-smoker - Hypertension Hypertension Diagnosis:: Hypertension ICD-10 I10 Resting Blood Pressure:: 130/64 [place] [employer] Hypertension Guidelines: [place] [employer] Hypertension Guidelines. Normal BP Less than 120/80. Elevated BP 120/80. Hypertension Stage 1: BP 130-139/80-89. Hypertesnion Stage 2: BP 140 or higher/90 or higher. Hypertension Crisis: BP higher than 180/120 Peak Exercise Blood Pressure:: 140/50 Outcomes/Goals: Able to verbalize/achieve optimal blood pressure <130/80, Incorporates diet changes & exercise for blood pressure control by DC Interventions/plan: Instruct on optimal blood pressure, hypertension & medications, Instruct on effects of sodium, alcohol, stress, exercise &hypertension 30 day Reassessments:: Progressing - Tobacco Cessation Referral Smoking Cessation Referral:: No Individual Education/Counseling:: No Education Schedule Given:: Yes Medical - Final Assessment Psychosocial - Initial Assess Psychosocial - 30-Day Assess Psychosocial - 60-Day Assess Psychosocial - 90-Day Assess - VIsit Date of Eval: 10/30/20 Session #:: 31 Not Applicable: Yes History of previous Mental disease:: No - Psychosocial Test Tool Used:: PHQ-9 Questionnaire phq-9 Severity: Severity. 1-4 Minimal Depression. 5-9 Mild Depression. 10-14 Moderate Depression. 15-19 Moderately Sever Depression. 20-27 Severe Depression. Rule: - Referral to Behavioral Health PS - Interventions: Yes Attend Stress Management Classes, No Referral to Behavioral Health if PHQ-9 score >9:, No Referral to [facility], No Referral to Physician if PHQ-9 if score is 5-9: - Outcomes/Goals: See list Psychosocial Outcomes/Goals:: ID's personal stressors & 2 strategies to manage stress by discharge - Intervention/Plan: See List Interventions/Plan:: Assess stressors,coping strategies & signs of derpression on admission, Instruct/assist pt to develop coping & personal stress Mgt strategies, Instruct patient to recognize signs & symptoms of depression, Instruct patient to recog - 30-day Reassessments: 30 day Reassessments:: Met Psychosocial - Final Assessmen Patient Health Questionnaire 90-Day Re-eval Assessment 1. Little interest or pleasure in doing things: Not at all 2. Feeling down, depressed, or hopeless: Not at all 3. Trouble falling or staying asleep, or sleeping too much: Not at all 4. Feeling tired or having little energy: Not at all 5. Poor appetite or overeating: Not at all 6. Feeling bad about yourself -- or that you are a failure or have let yourself or your family down: Not at all 7. Trouble concentrating on things, such as reading the newspaper or watching television: Not at all 8. Moving or speaking so slowly that other people could have noticed. Or the opposite - being so fidgety or restless that you have been moving around a lot more than usual: Not at all 9. Thoughts that you would be better off , or of hurting yourself in some way: Not at all How difficult have these problems made it for you to do your work, take care of things at home, or get along with other people?: Not difficult at all Total Score: 0 Self-Efficacy 90-Day Re-eval Assessment We would like to know how confident you are in doing certain activities. Please select your confidence level for:: Select your confidence level for the following using the scale 1-10 where 1 is not at all confident and 10 is totally confident. Your score is the average of all 6 responses. Fatigue: How confident are you that you can keep the fatigue caused by your disease from interfering with the things you want to do? Select Number: 10 Physical Discomfort or Pain: How confident are you that you can keep the physical discomfort or pain of your disease from interfering with the things you want to do? Select Number: 10 Emotional Distress: How confident are you that you can keep the emotional distress caused by your disease from interfering with the things you want to do? Select Number: 10 Other Symptoms or Health Problems: How confident are you that you can keep other symptoms or health problems from interfering with the things you want to do? Select Number: 10 Different Tasks and Activities: How confident are you that you can do the different tasks and activities needed to manage your health condition so as to reduce your need to see a doctor? Select Number: 10 Medication: How confident are you that you can do things other than just taking medication to reduce how much your illness affects your everyday life? Select Number: 10 Total Score:: 10 Nutrition Survey
[2020-10-30 07:14] VITALS: BP 130/64; BP 140/50; BMI 24.3
== END 2020-10-30 23:59 ==
LOC: CR 09:15
PROVIDERS: PCP Internal Medicine; Referring Provider Internal Medicine Cardiovascular Disease; Visit Provider Internal Medicine Cardiovascular Disease
DX: I25.10 Atherosclerotic heart disease of native coronary artery without angina pectoris (principal); I25.2 Old myocardial infarction; Z98.890 Other specified postprocedural states; Z95.5 Presence of coronary angioplasty implant and graft
CPT/HCPCS: 93798

== ENCOUNTER → 2020-11-06 14:20 | Outpatient (CLI) | payer MEDICARE, OTHER, SELFPAY ==
[2020-10-30 07:14] VITALS: BMI 24.3
[2020-11-06 13:50] VITALS: BMI 23.8
[2020-11-06 15:08] LABS: Absolute Lymphocyte Count 0.96 X10^3/uL (0.83-4.51); Absolute Neutrophil Count 5.6 X10^3/uL (2.0-7.7); Basophil# 0.08 X10^3/uL; Eosinophils% 7.8 % (0-5); Hematocrit 36.3 % (40-54); Hemoglobin 11.4 g/dL (13.0-16.5); Lymphocyte # 0.96 X10^3/ul (0.83-4.51); Lymphocyte % 12.5 % (19-41); Mean Corp Hgb Conc 31.4 g/dL (32-36); Mean Corpuscular Hgb 27.1 pg (27.0-32.0); Mean Corpuscular Volume 86.2 fL (80-94); Mean Platelet Vol. 10.5 fl (6.2-12.0); Monocyte# 0.47 X10^3/uL; Monocyte% 6.1 % (0-10); NRBC Flagged by Analyzer 0 % (0-5); Neutrophil # 5.55 X10^3/uL (2.7-7.7); Neutrophil % 72.3 % (47-70); Platelet Count 351 K/mm3 (150-450); RBC Distribution Width CV 15.8 % (11.6-14.6); RBC Distribution Width SD 49.4 fl (35.1-43.9); Red Blood Count 4.21 M/mm3 (4.6-6.2); White Blood Count 7.7 K/mm3 (4.4-11.0)
[2020-11-06 15:37] LABS: ALB/GLOB Ratio 1.1 RATIO (0.9-2.4); AST(SGOT) 10 U/L (15-37); Alanine Aminotransfer ALT/SGPT 14 U/L (16-61); Albumin, Serum 3.5 g/dL (3.2-5.0); Alkaline Phosphatase 81 U/L (45-117); Anion Gap 5 (5-15); BUN 26 mg/dL (7-18); BUN/Creat Ratio 16.4 RATIO (10-20); Calcium,Total 9.4 mg/dL (8.5-10.1); Chloride 108 mmol/L (98-107); Creatinine, Serum 1.59 mg/dL (0.70-1.30); EST Glomerular Filtration Rate 45 mL/min (>60); Est Glom Filt Rate - Afr Amer 55 mL/min (>60); Globulin 3.3 g/dL (2.2-4.2); Glucose 99 mg/dL (74-106); Potassium 4.4 mmol/L (3.5-5.1); Protein, Total 6.8 g/dL (6.4-8.2); Sodium Level 140 mmol/L (136-145)
== END ==
PROVIDERS: PCP Internal Medicine; Referring Provider Internal Medicine; Visit Provider Internal Medicine
DX: R04.0 Epistaxis (principal)
CPT/HCPCS: 36415; 80053; 85025

== ENCOUNTER 2020-11-13 09:30 | Outpatient (RCR) | payer MEDICARE, OTHER, SELFPAY ==
[2020-10-28 06:00] VITALS: BMI 23.8
[2020-10-31 00:25] VITALS: BP 130/64; BP 140/50
== END 2020-11-30 23:59 ==
LOC: CR 09:30
PROVIDERS: PCP Internal Medicine; Referring Provider Internal Medicine Cardiovascular Disease; Visit Provider Internal Medicine Cardiovascular Disease
DX: I25.10 Atherosclerotic heart disease of native coronary artery without angina pectoris (principal); I25.2 Old myocardial infarction; Z98.890 Other specified postprocedural states; Z95.5 Presence of coronary angioplasty implant and graft
CPT/HCPCS: 93798

== ENCOUNTER 2020-11-28 08:00 | Outpatient (RCR) | payer MEDICARE, OTHER, SELFPAY ==
[2020-11-06 13:50] VITALS: BMI 23.8
[2020-11-13 13:48] VITALS: BMI 23.8
== END 2020-11-30 23:59 ==
LOC: CR 08:00
PROVIDERS: PCP Internal Medicine; Visit Provider Internal Medicine Cardiovascular Disease
DX: Z00.00 Encounter for general adult medical examination without abnormal findings (principal)

== ENCOUNTER 2020-12-18 19:59 | Inpatient (IN) | payer MEDICARE, OTHER, SELFPAY ==
[2020-12-18 19:59] VITALS: BP 156/83; PULSE 73; RESP 16; TEMP 36.5; O2SAT 98; BMI 24.4
[2020-12-18 20:03] VITALS: BP 156/83; PULSE 69; RESP 67; TEMP 36.5; O2SAT 97
--- NOTE | 2020-12-18 20:29 | CT_ITS ---
STUDY: CT ABDOMEN AND PELVIS WITH CONTRAST REASON FOR EXAM: Male, 75 years old. Abdominal pain -- IV PO Contrast RADIATION DOSAGE (If Supplied By Facility): CTDIvol = ( 14.04 ) mGy, DLP = ( 708.04 ) mGycm TECHNIQUE: Transaxial images were obtained from the dome of the diaphragm to the symphysis pubis with oral contrast. Oral and amp; IV Gastrografin and amp; 100mL Isovue-370 was administered. Sagittal and coronal images were reconstructed. Individualized dose optimization techniques were used for this CT. COMPARISON: 10/02/20 FINDINGS: Emphysematous changes in the lung bases The visualized portions of the heart are within normal limits. Normal liver. Normal gallbladder and extrahepatic biliary system. Normal spleen. There is diffuse atrophy of the pancreas. Normal bilateral adrenal glands. Normal right kidney. Normal left kidney. Small bilateral nonenhancing renal cysts There is a small hiatal hernia. Multiple loops of dilated small bowel with fluid-filled appearance in the left hemiabdomen and right lower quadrant region. Decompressed distal loops of small bowel however, no discrete transition point. Early small bowel obstruction should be considered a possibility. There are multiple colonic diverticula consistent with diverticulosis. There is non-visualization of the appendix. Aortobiiliac stent graft is noted with infrarenal abdominal aortic aneurysm measuring 5.6 x 6 cm. Normal inferior vena cava. Normal retroperitoneum. Normal urinary bladder. Small amount of pelvic free fluid. Heterogeneous prostate left inguinal hernia containing a knuckle of small bowel however, not the transition point for small bowel obstruction. Normal abdominal wall. Normal osseous structures. CT/Abdomen/Pelvis WITH Contrast IMPRESSION: Dilated loops of small bowel without discrete transition point. Probable early small bowel obstruction. Aortobiiliac stent graft with infrarenal abdominal aortic aneurysm. Left inguinal hernia containing a knuckle of small bowel without evidence of obstruction point. Electronically Signed: Jhoan Garcia DO at 23:13 EDT Tel , Service support ,
[2020-12-18 20:50] LABS: Absolute Lymphocyte Count 0.63 X10^3/uL (0.83-4.51); Absolute Neutrophil Count 8.2 X10^3/uL (2.0-7.7); Eosinophil# 0.37 X10^3/uL; Eosinophils% 3.8 % (0-5); Hematocrit 35.6 % (40-54); Hemoglobin 11.3 g/dL (13.0-16.5); Lymphocyte # 0.63 X10^3/ul (0.83-4.51); Lymphocyte % 6.4 % (19-41); Mean Corp Hgb Conc 31.7 g/dL (32-36); Mean Corpuscular Hgb 27.5 pg (27.0-32.0); Mean Corpuscular Volume 86.6 fL (80-94); Mean Platelet Vol. 10.4 fl (6.2-12.0); Monocyte% 5.1 % (0-10); NRBC Flagged by Analyzer 0 % (0-5); Neutrophil # 8.16 X10^3/uL (2.7-7.7); Neutrophil % 83.4 % (47-70); Platelet Count 373 K/mm3 (150-450); RBC Distribution Width CV 14.7 % (11.6-14.6); Red Blood Count 4.11 M/mm3 (4.6-6.2); White Blood Count 9.8 K/mm3 (4.4-11.0)
[2020-12-18 21:07] LABS: ALB/GLOB Ratio 1.2 RATIO (0.9-2.4); AST(SGOT) 12 U/L (15-37); Alanine Aminotransfer ALT/SGPT 16 U/L (16-61); Albumin, Serum 3.6 g/dL (3.2-5.0); Alkaline Phosphatase 72 U/L (45-117); Anion Gap 7 (5-15); BUN 18 mg/dL (7-18); BUN/Creat Ratio 12.8 RATIO (10-20); Calcium,Total 9.4 mg/dL (8.5-10.1); Chloride 108 mmol/L (98-107); Creatinine, Serum 1.41 mg/dL (0.70-1.30); EST Glomerular Filtration Rate 52 mL/min (>60); Est Glom Filt Rate - Afr Amer 63 mL/min (>60); Estimated Creatinine Clearance 41.67 ml/min; Glucose 99 mg/dL (74-106); Lipase 81 U/L (73-393); Potassium 4.2 mmol/L (3.5-5.1); Protein, Total 6.6 g/dL (6.4-8.2); Sodium Level 140 mmol/L (136-145)
[2020-12-18 21:57] LABS: Bacteria 0 SEEN /hpf (None Seen); Mucous, Urine 0 SEEN /hpf (<or=2+); Red Blood Cells-Urine 0 SEEN /hpf (0-5); Squamous Epithelial Cells - UA 0 SEEN /hpf (0-5); White Blood Cells 0 SEEN /hpf (0-5)
[2020-12-18 21:58] LABS: Color, Urine Yellow (Yellow); Glucose, Dipstick Normal (Normal); Ketone-Dipstick 5 mg/dl (Negative); Leukocyte Esterase-Dipstick Negative /ul (Negative); Nitrite-Dipstick Negative (Negative); Occult Blood-Urine Negative /ul (Negative); Protein-Dipstick Negative (Negative); Specific Gravity, Urine 1.015 (1.002-1.030); Urine Bilirubin Dipstick Negative (Negative); Urine Clarity Clear (Clear); Urine Urobilinogen Normal (Normal)
[2020-12-18] MEDS: 0.9% Normal Saline 1,000 ML 999 ML IV (22:30)
[2020-12-18] MEDS: Ondansetron 4 MG/2 ML Vial IM (22:45)
[2020-12-18 22:47] VITALS: BP 170/92; PULSE 87; RESP 15; TEMP 36.8; O2SAT 96
--- NOTE | 2020-12-18 23:06 | EX.ED.DYSGE1 ---
HPI History of Present Illness Chief Complaint: Nausea/Vomiting/Diarrhea Informant: patient Onset/Context/Timing Onset: Today Context: Gradual Onset Timing: Continuous Quality: Stabbing Location: Epigastrium Worsened by: Nothing Relieved by: Nothing Narrative Narrative: Patient presents with nausea, vomiting, and diarrhea that began today. Patient denies any hematemesis or coffee-ground emesis. Patient states his emesis is just stomach contents. Patient states he had diarrhea earlier today. Patient denies any dysuria or hematuria. Patient denies any melena or hematochezia. Patient admits to some epigastric abdominal pain that became worse today. Patient states the pain is sharp and stabbing. Patient states the pain is worse over the epigastric area but radiates to the bilateral upper quadrants. Patient denies any back pain. Patient denies any fevers or chills. 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, rectosigmoid junction, and anus Short bowel syndrome Sinus bradycardia 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 classification Tachycardia Home Medications Red Rice Yeast 2 cap PO DAILY 06/29/19 [History Last Taken Unknown] cholecalciferol (vitamin D3) 2,000 unit PO DAILY 06/29/19 [History Last Taken 06/28/19] garlic 1,000 mg PO DAILY 06/29/19 [History Last Taken 06/28/19] loperamide [Anti-Diarrheal (loperamide)] 2 mg PO Q2H PRN PRN 06/29/19 [History Last Taken 06/25/20] ipratropium 20 mcg-albuterol 100 mcg/actuation mist for inhalation 2 puff INHALATION PRN PRN #4 g 12/11/19 [Rx Last Taken Unknown] fluticasone propionate 50 mcg/actuation nasal spray,suspension 1 spray INTRANASAL BID 05/09/20 [History Last Taken Unknown] [id number]-epa-fish oil-D3 1 ea PO DAILY 05/15/20 [History Last Taken Unknown] clopidogrel 75 mg tablet 75 mg PO QHS #90 tab 07/05/20 [Rx Last Taken Unknown] losartan 50 mg tablet 50 mg PO DAILY #90 tablet 08/09/20 [Rx Last Taken Unknown] budesonide 0.5 mg/2 mL suspension for nebulization 0.5 mg INHALATION Q12H #180 ml 08/19/20 [Rx Last Taken Unknown] tamsulosin 0.4 mg capsule 0.4 mg PO QHS #90 cap 10/25/20 [Rx Last Taken Unknown] lorazepam 0.5 mg tablet 1.5 mg PO QHS PRN 30 Days #90 tab 10/29/20 [Rx Last Taken Unknown] verapamil 120 mg tablet,extended release 120 mg PO QHS #90 tab 11/25/20 [Rx Last Taken Unknown] formoterol fumarate [Perforomist] 2 ml INHALATION Q12H 12/18/20 [History Last Taken Unknown] Allergy/AdvReac Type Severity Reaction Status Date / Time aspirin Allergy Shortness Verified 12/18/20 20:05 of breath adhesive AdvReac Rash Verified 12/18/20 20:05 amoxicillin trihydrate AdvReac Other Verified 12/18/20 20:05 [From Augmentin] atorvastatin calcium AdvReac Unknown Verified 12/18/20 20:05 [From Lipitor] metoprolol succinate AdvReac Rash Verified 12/18/20 20:05 [From Toprol XL] naproxen [From Naprosyn] AdvReac Shortness Verified 12/18/20 20:05 of breath paroxetine HCl [From Paxil] AdvReac Unknown Verified 12/18/20 20:05 potassium clavulanate AdvReac Unknown Verified 12/18/20 20:05 [From Augmentin] propoxyphene HCl AdvReac Unknown Verified 12/18/20 20:05 [From Darvon] sertraline HCl [From Zoloft] AdvReac Unknown Verified 12/18/20 20:05 simvastatin [From Zocor] AdvReac Unknown Verified 12/18/20 20:05 tiotropium bromide AdvReac Other Verified 12/18/20 20:05 [From Spiriva with HandiHaler] RUBBING ALCOHOL AdvReac Rash Uncoded 12/18/20 20:05 Family History Father Heart disease Hypertension High cholesterol CVA (cerebral vascular accident) Mother Dementia Surgical History History of coronary artery stent placement (06/07/20) History of endovascular stent graft for abdominal aortic aneurysm (AAA) (06/25/20) History of left heart catheterization (05/24/20) history of right eye surgery History of right inguinal hernia repair History of tonsillectomy History of tonsillectomy and adenoidectomy Hx of appendectomy Hx of bilateral cataract extraction Hx of umbilical hernia repair Status post laparoscopic colectomy Social History Smoking Status: Former smoker pack-years: 67 second hand exposure: No alcohol intake: never substance use type: does not use caffeine: Yes Type: coffee Number of servings: 4 what type of physical activity do you participate in: other details: pulmonary rehab frequency: 3-4 times per week ROS ROS ED Constitutional Constitutional ED: Denies chills or fever(s) Eyes Eyes: Denies blurry vision or change in vision ENT ENT ED: Denies rhinorrhea or sore throat Cardiovascular Cardiovascular: Denies chest pain or palpitations Respiratory/Chest Respiratory/Chest: Denies cough or dyspnea Gastrointestinal Gastrointestinal: Reports abdominal pain, diarrhea, nausea and vomiting Genitourinary Genitourinary ED: Denies dysuria or hematuria Musculoskeletal Musculoskeletal: Denies back pain or neck pain Integumentary Denies abscess or rash Neurologic Neurologic: Denies headache(s) or weakness Allergic/Immunologic Allergic/Immunologic ED: Denies mouth swelling or urticaria EXAM Physical Exam Const Vital Signs: 12/18/20 19:59 12/18/20 20:03 12/18/20 22:47 Temperature 97.7 F L 97.7 F L 98.2 F Temperature Source Temporal Temporal Temporal Pulse Rate 73 69 87 Respiratory Rate 16 67 H 15 Respiratory Pattern Blood Pressure 156/83 H 156/83 H 170/92 H Blood Pressure Mean 107 107 118 Pulse Ox 98 97 96 Oxygen Delivery Method Room Air Room Air Room Air 12/18/20 23:51 Temperature Temperature Source Pulse Rate 91 Respiratory Rate 17 Respiratory Pattern Normal Blood Pressure Blood Pressure Mean Pulse Ox Oxygen Delivery Method Positive well nourished and well developed General Appearance ED: well developed HEENT Reports moist mucous membranes Neck supple and no JVD Resp normal respiratory effort and clear to auscultation bilaterally Cardio regular rate, regular rhythm and no murmurs GI normal to inspection, nondistended, normoactive bowel sounds Palpation: soft and tender epigastric, LUQ and RUQ; Negative for guarding or rebound tenderness present Extremity normal to inspection General Extremety ED: Negative for edema or tenderness General Extremity: Negative for edema Neuro oriented x3, CN's II-XII intact bilaterally and no sensory deficits noted Sensorium / Orientation: alert Motor Exam: strength 5/5 throughout Psych mental status grossly normal Skin no rashes or lesions noted MDM MDM MDM Narrative Medical decision making narrative: Patient was given IV fluids. CBC was essentially within normal limits. There is a mild anemia with a hemoglobin of 11.3 hematocrit 35.6. Comprehensive metabolic profile showed a slightly elevated creatinine of 1.41. This is consistent with prior results. Lipase was normal. Urinalysis does not show any evidence of urinary tract infection. CT scan of the abdomen and pelvis was obtained. There are dilated loops of small bowel without discrete transition point. There is a probable early small bowel obstruction. There is a left inguinal hernia containing a knuckle of small bowel without evidence of obstruction. This was interpreted by the radiologist and reviewed by myself. Case was discussed with Dr. Alexis, general surgery on-call. He will see the patient in consultation. He recommended placing an NG tube. This was ordered. Case was discussed with the hospitalist. He will admit the patient to his service. Patient understood and was agreeable with the plan. All questions were answered. Lab Data Attestation: I reviewed the patient's lab results. Labs: Laboratory Results - last 24 hr 12/18/20 12/18/20 12/18/20 20:35 20:35 21:51 WBC 9.8 RBC 4.11 L Hgb 11.3 L Hct 35.6 L MCV 86.6 MCH 27.5 MCHC 31.7 L RDW Std Deviation 47.0 H RDW Coeff of Kylee 14.7 H Plt Count 373 MPV 10.4 Immature Gran % (Auto) 0.300 Neut % (Auto) 83.4 H Lymph % (Auto) 6.4 L [place] % (Auto) 5.1 Eos % (Auto) 3.8 Baso % (Auto) 1.0 Absolute Neuts (auto) 8.2 H Absolute Lymphs (auto) 0.63 L Nucleated RBC % 0 Sodium 140 Potassium 4.2 Chloride 108 H Carbon Dioxide 25.0 Anion Gap 7 BUN 18 Creatinine 1.41 H Estim Creat Clear Calc 41.67 Est GFR (MDRD) Af Amer 63 Est GFR (MDRD) Non-Af 52 L BUN/Creatinine Ratio 12.8 Glucose 99 Calcium 9.4 Total Bilirubin 0.70 AST 12 L ALT 16 Alkaline Phosphatase 72 Total Protein 6.6 Albumin 3.6 Globulin 3.0 Albumin/Globulin Ratio 1.2 Lipase 81 Urine Color Yellow Urine Clarity Clear Urine pH 6.0 Ur Specific [place] 1.015 Urine Protein Negative Urine Glucose (UA) Normal Urine Ketones 5 H Urine Occult Blood Negative Urine Nitrite Negative Urine Bilirubin Negative Urine Urobilinogen Normal Ur Leukocyte Esterase Negative Urine RBC 0 SEEN Urine WBC 0 SEEN Ur Squamous Epith Cells 0 SEEN Urine Bacteria 0 SEEN Urine Mucus 0 SEEN Radiography Diagnostic Testing: Radiology Impression Abdomen/Pelvis CT 12/18/20 20:29 IMPRESSION: Dilated loops of small bowel without discrete transition point. Probable early small bowel obstruction. Aortobiiliac stent graft with infrarenal abdominal aortic aneurysm. Left inguinal hernia containing a knuckle of small bowel without evidence of obstruction point. Electronically Signed: Jhoan Garcia DO at 23:13 EDT Tel , Service support , Discharge Plan Triage Chief Complaint: Nausea/Vomiting/Diarrhea ED Provider: Heri Babb Dx/Rx/DC Orders Clinical Impression: Partial small bowel obstruction Prescriptions: No Action ipratropium-albuterol 20-100 mcg/actuation mist 2 puff INHALATION PRN PRN (Reason: Shortness Of Breath) Qty: 4 RF: 5 fluticasone propionate 50 mcg/actuation spray,suspension 1 spray INTRANASAL BID RF: 0 clopidogrel 75 mg tablet 75 mg PO QHS Qty: 90 RF: 1 losartan 50 mg tablet 50 mg PO DAILY Qty: 90 RF: 3 garlic 1,000 MG capsule 1,000 mg PO DAILY RF: 0 cholecalciferol (vitamin D3) 2,000 UNIT capsule 2,000 unit PO DAILY RF: 0 Red Rice Yeast 2 cap PO DAILY RF: 0 loperamide [Anti-Diarrheal (loperamide)] 2 MG capsule 2 mg PO Q2H PRN PRN (Reason: Diarrhea) RF: 0 [id number]-fish oil-D3 1 EACH capsule 1 ea PO DAILY RF: 0 formoterol fumarate [Perforomist] 20 mcg/2 mL solution for nebulization 2 ml inhalation Q12H RF: 0 budesonide 0.5 mg/2 mL suspension for nebulization 0.5 mg INHALATION Q12H Qty: 180 RF: 6 tamsulosin 0.4 mg capsule 0.4 mg PO QHS Qty: 90 RF: 1 lorazepam 0.5 mg tablet 1.5 mg PO QHS PRN (Reason: sleep) 30 Days Qty: 90 RF: 1 verapamil 120 mg tablet extended release 120 mg PO QHS Qty: 90 RF: 3 Primary Care Provider: Krystyna Sanchez Referrals: Krystyna Sanchez MD [Primary Care Provider] - Disposition Disposition: Acute Care Hospital [facility]
[2020-12-18] MEDS: Ipratropium/Albuterol Sulfate 3 ML AMPUL.NEB INHALATION (23:46)
[2020-12-18 23:51] VITALS: PULSE 91; RESP 17
--- NOTE | 2020-12-18 23:52 | ED.RN ---
patient has conssukt wit general surgery at this time so PO med not given and Dr Babb is aware
[2020-12-19] VITALS (14 sets, daily range): BP systolic 119–171; BP diastolic 59–90; PULSE 78–105; RESP 16–24; TEMP 36.3–37.1; O2SAT 93–100; BMI 24.0
--- NOTE | 2020-12-19 00:12 | HP.PCM.HOS_ITS ---
[facility] - General General Date of Admission: 12/19/20 HPI Narrative BETTE ASTORGA, is a 75 M with a significant history of aortic aneurysm repair in June 2020; multiple MIs with multiple stents; colon cancer status post colectomy, and chemoradiation; and asthma who presents with excruciating persistent nonradiating epigastric pain that started when he woke up on the day of presentation. His pain worsens with leaning forward and improves with leaning backwards. He received some medication by the paramedics and this helped with his pain. Also he received Zofran at the emergent department that helped with his pain. Associated with symptom is nausea and vomiting. Also he reports chronic diarrhea that has been going off since 2007 after colectomy following colon cancer. Earlier this year patient had 5 coronary stents. Reported also in 2007 he had 3 coronary stents. Reported he has a known hernia but because he cannot come off the Plavix the hernia has not been repaired. 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, rectosigmoid junction, and anus Short bowel syndrome Sinus bradycardia 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 classification Tachycardia Home Medications Red Rice Yeast 2 cap PO DAILY 06/29/19 [History Last Taken Unknown] cholecalciferol (vitamin D3) 2,000 unit PO DAILY 06/29/19 [History Last Taken 06/28/19] garlic 1,000 mg PO DAILY 06/29/19 [History Last Taken 06/28/19] loperamide [Anti-Diarrheal (loperamide)] 2 mg PO Q2H PRN PRN 06/29/19 [History Last Taken 06/25/20] ipratropium 20 mcg-albuterol 100 mcg/actuation mist for inhalation 2 puff INHALATION PRN PRN #4 g 12/11/19 [Rx Last Taken Unknown] fluticasone propionate 50 mcg/actuation nasal spray,suspension 1 spray INTRANASAL BID 05/09/20 [History Last Taken Unknown] [id number]-[id number]-vlk-epa-fish oil-D3 1 ea PO DAILY 05/15/20 [History Last Taken Unknown] clopidogrel 75 mg tablet 75 mg PO QHS #90 tab 07/05/20 [Rx Last Taken Unknown] losartan 50 mg tablet 50 mg PO DAILY #90 tablet 08/09/20 [Rx Last Taken Unknown] budesonide 0.5 mg/2 mL suspension for nebulization 0.5 mg INHALATION Q12H #180 ml 08/19/20 [Rx Last Taken Unknown] tamsulosin 0.4 mg capsule 0.4 mg PO QHS #90 cap 10/25/20 [Rx Last Taken Unknown] lorazepam 0.5 mg tablet 1.5 mg PO QHS PRN 30 Days #90 tab 10/29/20 [Rx Last Taken Unknown] verapamil 120 mg tablet,extended release 120 mg PO QHS #90 tab 11/25/20 [Rx Last Taken Unknown] formoterol fumarate [Perforomist] 2 ml INHALATION Q12H 12/18/20 [History Last Taken Unknown] Allergy/AdvReac Type Severity Reaction Status Date / Time aspirin Allergy Shortness Verified 12/18/20 20:05 of breath adhesive AdvReac Rash Verified 12/18/20 20:05 amoxicillin trihydrate AdvReac Other Verified 12/18/20 20:05 [From Augmentin] atorvastatin calcium AdvReac Unknown Verified 12/18/20 20:05 [From Lipitor] metoprolol succinate AdvReac Rash Verified 12/18/20 20:05 [From Toprol XL] naproxen [From Naprosyn] AdvReac Shortness Verified 12/18/20 20:05 of breath paroxetine HCl [From Paxil] AdvReac Unknown Verified 12/18/20 20:05 potassium clavulanate AdvReac Unknown Verified 12/18/20 20:05 [From Augmentin] propoxyphene HCl AdvReac Unknown Verified 12/18/20 20:05 [From Darvon] sertraline HCl [From Zoloft] AdvReac Unknown Verified 12/18/20 20:05 simvastatin [From Zocor] AdvReac Unknown Verified 12/18/20 20:05 tiotropium bromide AdvReac Other Verified 12/18/20 20:05 [From Spiriva with HandiHaler] RUBBING ALCOHOL AdvReac Rash Uncoded 12/18/20 20:05 Family History Father Heart disease Hypertension High cholesterol CVA (cerebral vascular accident) Mother Dementia Surgical History History of coronary artery stent placement (06/07/20) History of endovascular stent graft for abdominal aortic aneurysm (AAA) ( 06/25/20) History of left heart catheterization (05/24/20) history of right eye surgery History of right inguinal hernia repair History of tonsillectomy History of tonsillectomy and adenoidectomy Hx of appendectomy Hx of bilateral cataract extraction Hx of umbilical hernia repair Status post laparoscopic colectomy Social History Smoking Status: Former smoker pack-years: 67 second hand exposure: No alcohol intake: never substance use type: does not use caffeine: Yes Type: coffee Number of servings: 4 what type of physical activity do you participate in: other details: pulmonary rehab frequency: 3-4 times per week ROS ROS Narrative Constitutional: Denies anorexia and change in weight Eyes: Denies blurry vision, change in eye color, change in vision, discharge from eye(s), double vision, erythema, eye pain, loss of vision or other HEENT: Denies abnormal hearing, dysphagia, ear pain, epistaxis, headache(s), hearing loss, nasal congestion, nasal discharge, post nasal drip, sinus pr essure, sore throat or other Cardiovascular: Denies chest pain. Denies dyspnea on exertion, orthopnea and paroxysmal nocturnal dyspnea Respiratory/Chest: Denies cough, excessive phlegm production, shortness of breath with exertion and wheezing Gastrointestinal: Reports epigastric pain; nausea; vomiting and diarrhea. Denies coffee ground emesis and constipation. Denies melena. Denies hematoch ezia. Genitourinary: Denies burning urination, difficulty urinating, dysuria, hematuria, nocturia, urinary frequency, urinary hesitancy, urinary incontinence, urinary urgency or other Musculoskeletal: Denies arthralgias, back pain, joint pain, joint stiffness, joint swelling, myalgias, neck pain or other Neurologic: Denies abnormal gait, abnormal speech, confusion, disequilibrium, dizziness, focal weakness, headache(s), numbness, paresthesias, seizure-like activity, seizures, syncope, tingling, tremor(s) or other Psychiatric: Denies anxiety, depression, homicidal ideation, suicidal ideation or other Endocrinology: Denies change in body appearance, cold intolerance, excessive sweating, heat intolerance, polydipsia, polyuria or other Hematologic/Lymphatic: Denies anemia, easy bleeding, easy bruising, lymphadenopathy or other Integumentary: Denies ulcer on buttocks. Allergic/Immunologic: Denies rhinitis, hives, eczema, asthma or other Vital Signs Vital Signs Vital Signs: 12/18/20 19:59 12/18/20 20:03 12/18/20 22:47 Temperature 97.7 F L 97.7 F L 98.2 F Temperature Source Temporal Temporal Temporal Pulse Rate 73 69 87 Respiratory Rate 16 67 H 15 Respiratory Pattern Blood Pressure 156/83 H 156/83 H 170/92 H Blood Pressure Mean 107 107 118 Pulse Ox 98 97 96 Oxygen Delivery Method Room Air Room Air Room Air 12/18/20 23:51 Temperature Temperature Source Pulse Rate 91 Respiratory Rate 17 Respiratory Pattern Normal Blood Pressure Blood Pressure Mean Pulse Ox Oxygen Delivery Method Weight Weight: 70.7 kg Body Mass Index (BMI) 24.4 Physical Exam Narrative Physical exam: General: Well-nourished, well-developed, no acute distress Head: Normocephalic, atraumatic, no tenderness Eyes: PERRLA, EOMI ENT, no trauma, moist mucous membranes, no rhinorrhea Neck: Nontender, full range of motion, no spinal tenderness, deformities, step-o ff CVS: Regular rate and rhythm Respiratory no acute distress, clear to auscultation bilaterally, chest wall nontender, no wheezing Abdomen: Soft, nontender, nondistended, normal bowel sounds, no masses : Deferred Back: Nontender, no CVA tenderness, no midline spinal tenderness, deformities, step-offs Extremities: Nontender full range of motion, no trauma Skin: Normal color, no trauma, abrasions Neuro: Alert, oriented, cranial nerves II through XII grossly intact. Psychiatry: Normal mood. Normal affect. Not depressed. Not anxious. Results Lab / Micro Data Result Diagrams: 12/18/20 20:35 12/18/20 20:35 Labs: Laboratory Results - last 24 hr 12/18/20 20:35: WBC 9.8, RBC 4.11 L, Hgb 11.3 L, Hct 35.6 L, MCV 86.6, MCH 27.5, MCHC 31.7 L, RDW Std Deviation 47.0 H, RDW Coeff of Kylee 14.7 H, Plt Count 373, MPV 10.4, Immature Gran % (Auto) 0.300, Neut % (Auto) 83.4 H, Lymph % (Auto) 6.4 L, [place] % (Auto) 5.1, Eos % (Auto) 3.8, Baso % (Auto) 1.0, Absolute Neuts (auto) 8.2 H, Absolute Lymphs (auto) 0.63 L, Nucleated RBC % 0 12/18/20 20:35: Sodium 140, Potassium 4.2, Chloride 108 H, Carbon Dioxide 25.0, Anion Gap 7, BUN 18, Creatinine 1.41 H, Estim Creat Clear Calc 41.67, Est GFR (MDRD) Af Amer 63, Est GFR (MDRD) Non-Af 52 L, BUN/Creatinine Ratio 12.8, Glucose 99, Calcium 9.4, Total Bilirubin 0.70, AST 12 L, ALT 16, Alkaline Phosphatase 72, Total Protein 6.6, Albumin 3.6, Globulin 3.0, Albumin/Globulin Ratio 1.2, Lipase 81 12/18/20 21:51: Urine Color Yellow, Urine Clarity Clear, Urine pH 6.0, Ur Specific [place] 1.015, Urine Protein Negative, Urine Glucose (UA) Normal, Urine Ketones 5 H, Urine Occult Blood Negative, Urine Nitrite Negative, Urine Bilirubin Negative, Urine Urobilinogen Normal, Ur Leukocyte Esterase Negative, Urine RBC 0 SEEN, Urine WBC 0 SEEN, Ur Squamous Epith Cells 0 SEEN, Urine Bacteria 0 SEEN, Urine Mucus 0 SEEN Radiology Impression Abdomen/Pelvis CT 12/18/20 20:29 IMPRESSION: Dilated loops of small bowel without discrete transition point. Probable early small bowel obstruction. Aortobiiliac stent graft with infrarenal abdominal aortic aneurysm. Left inguinal hernia containing a knuckle of small bowel without evidence of obstruction point. Electronically Signed: Jhoan Garcia DO at 23:13 EDT Tel , Service support , Assessment & Plan Assessment/Plan (1) Partial small bowel obstruction: (2) History of coronary artery stent placement: PLAN: Partial small bowel obstruction. Impression of abdomen/pelvis CT by radiology: Dilated loops of small bowel without discrete transition point. Probable early small bowel obstruction. Aortoiliac stent graft with infrarenal abdominal aortic aneurysm. Left inguinal hernia containing a knuckle of small bowel without evidence of obstruction point. Abdomen pelvis CT image was independently reviewed and agree with direct interpretation. Emergent department labs reviewed showed normal white counts. Emergency department discussed the case with general surgeon on-call who chris mmended NG tube. NG tube to low intermittent suction ordered. Will begin conservative therapy with n.p.o.; IV fluids ordered. Trend CBC and BMP. History of coronary artery stent placement Patient reports that earlier this year he had 5 stent placed in his coronaries. Nurse communication to give Plavix and clamp NGT. Hypertension Blood pressure is now within goal. Hold home p.o. blood pressure medications. IV Vasotec ordered. As needed IV hydralazine ordered. Asthma Home inhalers continued. CKD stage IIIb Stable DVT prophylaxis: SCD ordered. Charges/Coding Visit Charges Inpatient E&M: 41765 Init Hosp L3
[2020-12-19] MEDS: Lidocaine 2% Jelly 1 APPLIC Tube TOPICAL (00:14)
[2020-12-19] MEDS: Lidocaine 4% 5 ML Ampul 2 ML INHALATION (00:15)
[2020-12-19] MEDS: Oxymetazoline 0.05% 1 SPRAY SPRAY.BTL 2 SPRAY NASAL (00:15)
--- NOTE | 2020-12-19 01:00 | RAD_ITS ---
STUDY: X-RAY - ABDOMEN/PELVIS REASON FOR EXAM: Male, 75 years old. NG Insertion TECHNIQUE: Single AP view of the abdomen / pelvis. COMPARISON: None. FINDINGS: Normal visualized lung bases. NG tube with tip and side-port in the stomach. There is no demonstrated free abdominal air. The visualized liver, spleen and kidneys are grossly normal in size and morphology. Normal soft tissue structures. Normal visualized osseous structures. RAD/Abdomen Single View (Portable) IMPRESSION: NG tube with tip and side-port in the stomach Electronically Signed: Jhoan Garcia DO at 1:16 EDT Tel , Service support ,
[2020-12-19] MEDS: Enalaprilat 1.25 MG/ML Vial IV ×4 (02:30→18:36)
[2020-12-19] MEDS: Lactated Ringers 1,000 ML 75 ML IV ×2 (02:30→17:00)
[2020-12-19] MEDS: 0.9% Saline Lock 10 ML Syringe IV (02:33)
[2020-12-19 06:24] LABS: Absolute Lymphocyte Count 0.56 X10^3/uL (0.83-4.51); Absolute Neutrophil Count 12.2 X10^3/uL (2.0-7.7); Basophil# 0.07 X10^3/uL; Basophil% 0.5 % (0-1); Eosinophil# 0.03 X10^3/uL; Eosinophils% 0.2 % (0-5); Hematocrit 36.4 % (40-54); Hemoglobin 11.4 g/dL (13.0-16.5); Lymphocyte # 0.56 X10^3/ul (0.83-4.51); Lymphocyte % 4.1 % (19-41); Mean Corp Hgb Conc 31.3 g/dL (32-36); Mean Corpuscular Hgb 26.8 pg (27.0-32.0); Mean Corpuscular Volume 85.6 fL (80-94); Mean Platelet Vol. 10.5 fl (6.2-12.0); Monocyte# 0.79 X10^3/uL; Monocyte% 5.8 % (0-10); NRBC Flagged by Analyzer 0 % (0-5); Neutrophil % 88.9 % (47-70); POSITIVE DIFFERENTIAL YES; Platelet Count 367 K/mm3 (150-450); RBC Distribution Width CV 14.8 % (11.6-14.6); RBC Distribution Width SD 46.5 fl (35.1-43.9); Red Blood Count 4.25 M/mm3 (4.6-6.2); White Blood Count 13.7 K/mm3 (4.4-11.0)
[2020-12-19 06:27] LABS: Differential Indicated SCAN CRITERIA MET
[2020-12-19 06:39] LABS: Differential Comment SCANNED
[2020-12-19 06:49] LABS: Anion Gap 7 (5-15); BUN 16 mg/dL (7-18); BUN/Creat Ratio 11.9 RATIO (10-20); Calcium,Total 8.8 mg/dL (8.5-10.1); Chloride 109 mmol/L (98-107); Creatinine, Serum 1.34 mg/dL (0.70-1.30); EST Glomerular Filtration Rate 55 mL/min (>60); Est Glom Filt Rate - Afr Amer 67 mL/min (>60); Estimated Creatinine Clearance 43.85 ml/min; Glucose 110 mg/dL (74-106); Potassium 4.1 mmol/L (3.5-5.1); Sodium Level 139 mmol/L (136-145)
[2020-12-19] MEDS: Ipratropium/Albuterol Sulfate 3 ML AMPUL.NEB INHALATION ×2 (07:46→22:39)
[2020-12-19] MEDS: Budesonide Respules 0.5 MG/2 ML AMPUL.NEB. INHALATION ×2 (07:46→19:45)
--- NOTE | 2020-12-19 09:25 | CASEMGMT ---
TREVOR MORALES Assessment: Face to Face with pt for initial transition planning/care coordination assessment. RN ANDREW introduced self and role at [facility], pt voices understanding and consents to assessment. Pt is A/O x4 and answers all questions appropriately at this time. Pt lying in bed in no distress. Care providers, pharmacy, and demographics verified/updated. Admitting Dx: partial small bowel obstruction PCP:Laura Specialists:tiara Kessler; alycia Steinberg Preferred Pharmacy: [facility] Insurance: [employer] Prescription Benefit: yes LW/HPOA: Pt states he has a LW/DPOA and it is on file at [facility]. His DPOA is his Shania Clements. LNOK: Shania Clements, ; Rob Clements, son Living Arrangements: Pt lives with his in a single story house with one step to enter. Pt reports being I in ADL's and denies concerns at home. Transportation: Pt drives self and denies concerns with transportation. DME/HHC/SNF: Pt has O2 concentrator at home. Denies previous HHC or SNF stays. Pt reports wearing 3L of O2 at hs but is unsure of the name of the company he gets it from. It is not [employer] or [employer]. Pt states no concerns with going home at time of dc. Pt states no further concerns/needs. CM to follow. Advised pt to ask CM if any further question/concerns/needs arise, voices understanding. Pt Goal: Home Plan: Home
--- NOTE | 2020-12-19 09:26 | PCM.HP.STD ---
HPI - General General Date of Admission: 12/19/20 HPI Narrative BETTE ASTORGA, is a 75 M with a complex past medical/past surgical history who presents to [facility] with complaints of nausea and vomiting for 48 hours. Mr. Astorga states he began with diarrhea on 12/16/2020. Due to the frequency, he elected to try some Imodium. However since taking this Imodium he has not passed a stool or flatus. He had several bouts of emesis yesterday and experienced some symptomatic relief following nasogastric tube placement in the emergency department. ED work-up was relatively unremarkable from a biochemical standpoint, however, CT abdomen pelvis did demonstrate some dilated small bowel loops without clear transition point. According to my own read of this imaging the patient does have air demonstrated throughout his rectum and left colon. There is a Bryant's type left inguinal hernia, but Mr. Astorga states this spontaneously reduces when he lies supine. Mr. Astorga's past medical history is notable for coronary artery disease with previous [place]. He had 5 drug-eluting stents placed in June 2020. He currently is on dual antiplatelet therapy for the stents. Dr. Rodríguez performed an EVAR for his infrarenal AAA, but has been awaiting Mr. Astorga's ability to come off his antiplatelet therapy before repairing the known left inguinal hernia. Additionally, Mr. Astorga's abdominal surgical history includes prior appendectomy, prior right inguinal hernia repair, and a laparoscopic low anterior resection for colon cancer. 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 dander Anemia Asthma Atherosclerotic heart disease of grindstone coronary artery without angina pectoris BPH (benign prostatic hyperplasia) Bronchiectasis Cancer Chest pain COPD (chronic obstructive pulmonary disease) Coronary artery disease Epistaxis Essential (primary) hypertension Former smoker History of colon cancer History of ST elevation myocardial infarction (STEMI) (05/27/07) Hyperlipidemia Hypertension Hypoxia Insomnia Iron deficiency Kidney stones Left inguinal hernia Low back pain Myocardial infarct 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) On home oxygen therapy Personal history of other malignant neoplasm of rectum, rectosigmoid junction, and anus Short bowel syndrome Sinus bradycardia 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 classification Tachycardia Home Medications Red Rice Yeast 2 cap PO DAILY 02/27/20 [History Last Taken 12/17/20 17:00] cholecalciferol (vitamin D3) 2,000 unit PO DAILY 06/29/19 [History Last Taken 12/17/20 17:00] garlic 2,000 mg PO DAILY 06/29/19 [History Last Taken 12/17/20 17:00] loperamide [Anti-Diarrheal (loperamide)] 2 mg PO Q2H PRN PRN 06/29/19 [History Last Taken 12/17/20 22:00] ipratropium 20 mcg-albuterol 100 mcg/actuation mist for inhalation 2 puff INHALATION PRN PRN #4 g 12/11/19 [Rx Last Taken Unknown] fluticasone propionate 50 mcg/actuation nasal spray,suspension 1 spray INTRANASAL BID 05/09/20 [History Last Taken Unknown] uzady-3o-den-epa-fish oil-D3 1 ea PO DAILY 05/15/20 [History Last Taken 12/17/20 17:00] clopidogrel 75 mg tablet 75 mg PO QHS #90 tab 07/05/20 [Rx Last Taken 12/17/20 22:00] losartan 50 mg tablet 50 mg PO DAILY #90 tablet 08/09/20 [Rx Last Taken 12/18/20 08:00] budesonide 0.5 mg/2 mL suspension for nebulization 0.5 mg INHALATION Q12H #180 ml 08/19/20 [Rx Last Taken 12/17/20 23:00] tamsulosin 0.4 mg capsule 0.4 mg PO QHS #90 cap 10/25/20 [Rx Last Taken 12/17/20 22:00] lorazepam 0.5 mg tablet 1.5 mg PO QHS PRN 30 Days #90 tab 10/29/20 [Rx Last Taken 12/17/20 22:00] verapamil 120 mg tablet,extended release 120 mg PO QHS #90 tab 11/25/20 [Rx Last Taken 12/17/20 22:00] formoterol fumarate [Perforomist] 2 ml INHALATION Q12H 12/18/20 [History Last Taken 12/17/20 23:00] Allergy/AdvReac Type Severity Reaction Status Date / Time aspirin Allergy Shortness Verified 12/18/20 20:05 of breath adhesive AdvReac Rash Verified 12/18/20 20:05 amoxicillin trihydrate AdvReac Other Verified 12/18/20 20:05 [From Augmentin] atorvastatin calcium AdvReac leg cramps Verified 12/19/20 01:29 [From Lipitor] metoprolol succinate AdvReac Rash Verified 12/18/20 20:05 [From Toprol XL] naproxen [From Naprosyn] AdvReac Shortness Verified 12/18/20 20:05 of breath paroxetine HCl [From Paxil] AdvReac Unknown Verified 12/18/20 20:05 potassium clavulanate AdvReac tingling Verified 12/19/20 01:29 [From Augmentin] all over propoxyphene HCl AdvReac Unknown Verified 12/18/20 20:05 [From Darvon] sertraline HCl [From Zoloft] AdvReac Unknown Verified 12/18/20 20:05 simvastatin [From Zocor] AdvReac Unknown Verified 12/18/20 20:05 tiotropium bromide AdvReac Other Verified 12/18/20 20:05 [From Spiriva with HandiHaler] RUBBING ALCOHOL AdvReac Rash Uncoded 12/18/20 20:05 Family History Father Heart disease Hypertension High cholesterol CVA (cerebral vascular accident) Mother Dementia Surgical History History of coronary artery stent placement (06/07/20) History of endovascular stent graft for abdominal aortic aneurysm (AAA) (06/25/20) History of left heart catheterization (05/24/20) history of right eye surgery History of right inguinal hernia repair History of tonsillectomy History of tonsillectomy and adenoidectomy Hx of appendectomy Hx of bilateral cataract extraction Hx of umbilical hernia repair Status post laparoscopic colectomy Social History Smoking Status: Former smoker pack-years: 67 second hand exposure: No alcohol intake: never substance use type: does not use caffeine: Yes Type: coffee Number of servings: 4 what type of physical activity do you participate in: other details: pulmonary rehab frequency: 3-4 times per week Vital Signs Vital Signs Vital Signs: 12/18/20 19:59 12/18/20 20:03 12/18/20 22:47 Temperature 97.7 F L 97.7 F L 98.2 F Temperature Source Temporal Temporal Temporal Pulse Rate 73 69 87 Respiratory Rate 16 67 H 15 Respiratory Effort Respiratory Pattern Blood Pressure 156/83 H 156/83 H 170/92 H Blood Pressure Mean 107 107 118 Blood Pressure Source Blood Pressure Position Blood Pressure Location Pulse Ox 98 97 96 Oxygen Delivery Method Room Air Room Air Room Air Oxygen Flow Rate (L/min) 12/18/20 23:51 12/19/20 00:24 12/19/20 00:26 Temperature 97.8 F 97.9 F Temperature Source Temporal Oral Pulse Rate 91 96 94 Respiratory Rate 17 16 16 Respiratory Effort Respiratory Pattern Normal Blood Pressure 171/90 H 171/90 H Blood Pressure Mean 117 117 Blood Pressure Source Blood Pressure Position Blood Pressure Location Pulse Ox 95 95 Oxygen Delivery Method Room Air Room Air Oxygen Flow Rate (L/min) 3 12/19/20 01:21 12/19/20 01:50 12/19/20 05:46 Temperature 97.7 F L Temperature Source Oral Pulse Rate 80 98 Respiratory Rate 16 Respiratory Effort Normal Non-Labored Respiratory Pattern Blood Pressure 143/70 H Blood Pressure Mean 94 Blood Pressure Source Monitor Blood Pressure Position Semi-Fowlers Blood Pressure Location Left Arm Pulse Ox 100 Oxygen Delivery Method Nasal Cannula Nasal Cannula Oxygen Flow Rate (L/min) 3 3 12/19/20 06:00 12/19/20 06:38 12/19/20 07:46 Temperature 97.3 F L Temperature Source Oral Pulse Rate 103 H 102 H 84 Respiratory Rate 18 18 Respiratory Effort Respiratory Pattern Blood Pressure 123/73 H Blood Pressure Mean 89 Blood Pressure Source Monitor Blood Pressure Position Semi-Fowlers Blood Pressure Location Left Arm Pulse Ox 94 95 Oxygen Delivery Method Room Air Room Air Oxygen Flow Rate (L/min) Weight Weight: 153 lb 14.122 oz Body Mass Index (BMI) 24.0 Physical Exam Const alert and oriented x3 General Appearance: cooperative Resp normal respiratory effort GI soft to palpation GI Narrative: Left inguinal hernia without small bowel Palpation: tender LLQ (Left lower quadrant tenderness is more prominent in left upper quadrant tenderness) and LUQ and hernia Results Lab / Micro Data Result Diagrams: 12/19/20 05:54 12/19/20 05:54 Labs: Laboratory Results - last 24 hr 12/18/20 20:35: WBC 9.8, RBC 4.11 L, Hgb 11.3 L, Hct 35.6 L, MCV 86.6, MCH 27.5, MCHC 31.7 L, RDW Std Deviation 47.0 H, RDW Coeff of Kylee 14.7 H, Plt Count 373, MPV 10.4, Immature Gran % (Auto) 0.300, Neut % (Auto) 83.4 H, Lymph % (Auto) 6.4 L, Mclennan % (Auto) 5.1, Eos % (Auto) 3.8, Baso % (Auto) 1.0, Absolute Neuts (auto) 8.2 H, Absolute Lymphs (auto) 0.63 L, Nucleated RBC % 0 12/18/20 20:35: Sodium 140, Potassium 4.2, Chloride 108 H, Carbon Dioxide 25.0, Anion Gap 7, BUN 18, Creatinine 1.41 H, Estim Creat Clear Calc 41.67, Est GFR (MDRD) Af Amer 63, Est GFR (MDRD) Non-Af 52 L, BUN/Creatinine Ratio 12.8, Glucose 99, Calcium 9.4, Total Bilirubin 0.70, AST 12 L, ALT 16, Alkaline Phosphatase 72, Total Protein 6.6, Albumin 3.6, Globulin 3.0, Albumin/Globulin Ratio 1.2, Lipase 81 12/18/20 21:51: Urine Color Yellow, Urine Clarity Clear, Urine pH 6.0, Ur Specific [place] 1.015, Urine Protein Negative, Urine Glucose (UA) Normal, Urine Ketones 5 H, Urine Occult Blood Negative, Urine Nitrite Negative, Urine Bilirubin Negative, Urine Urobilinogen Normal, Ur Leukocyte Esterase Negative, Urine RBC 0 SEEN, Urine WBC 0 SEEN, Ur Squamous Epith Cells 0 SEEN, Urine Bacteria 0 SEEN, Urine Mucus 0 SEEN 12/19/20 05:54: WBC 13.7 H, RBC 4.25 L, Hgb 11.4 L, Hct 36.4 L, MCV 85.6, MCH 26.8 L, MCHC 31.3 L, RDW Std Deviation 46.5 H, RDW Coeff of Kylee 14.8 H, Plt Count 367, MPV 10.5, Immature Gran % (Auto) 0.500, Neut % (Auto) 88.9 H, Lymph % (Auto) 4.1 L, Mclennan % (Auto) 5.8, Eos % (Auto) 0.2, Baso % (Auto) 0.5, Absolute Neuts (auto) 12.2 H, Absolute Lymphs (auto) 0.56 L, Nucleated RBC % 0, Differential Comment SCANNED 12/19/20 05:54: Sodium 139, Potassium 4.1, Chloride 109 H, Carbon Dioxide 23.0, Anion Gap 7, BUN 16, Creatinine 1.34 H, Estim Creat Clear Calc 43.85, Est GFR (MDRD) Af Amer 67, Est GFR (MDRD) Non-Af 55 L, BUN/Creatinine Ratio 11.9, Glucose 110 H, Calcium 8.8 Radiology Impression Abdomen/Pelvis CT 12/18/20 20:29 IMPRESSION: Dilated loops of small bowel without discrete transition point. Probable early small bowel obstruction. Aortobiiliac stent graft with infrarenal abdominal aortic aneurysm. Left inguinal hernia containing a knuckle of small bowel without evidence of obstruction point. Electronically Signed: Jhoan Garcia DO at 23:13 EDT Tel , Service support , KUB X-Ray 12/19/20 01:00 IMPRESSION: NG tube with tip and side-port in the stomach Electronically Signed: Jhoan Garcia DO at 1:16 EDT Tel , Service support , Assessment & Plan Assessment/Plan (1) Partial small bowel obstruction: PLAN: ?Continue to proceed with conservative management maintaining nasogastric tube to low intermittent wall suction. Patient was experiencing nausea while clamped. We will plan to proceed with a Gastrografin study this afternoon. ?Patient does have a white count and some left lower quadrant tenderness. Imaging also seems to suggest mild pericolonic haziness in the left colon. I am mildly suspicious for a diverticular flare. (2) Left inguinal hernia: PLAN: No bowel incarceration on exam. Patient confirms he feels it spontaneously reducible when he lies supine. Given this exam, and imaging I do not believe this is because the patient's small bowel obstruction. Charges/Coding Visit Charges Inpatient E&M: 14027 Init Hosp L3
[2020-12-19] MEDS: Acetaminophen 325 MG Tablet 650 MG PO (09:27)
[2020-12-19] MEDS: Clopidogrel Bisulfate 75 MG Tablet PO ×2 (09:27→21:39)
[2020-12-19] MEDS: Ondansetron 4 MG/2 ML Vial IV ×2 (09:32→21:40)
--- NOTE | 2020-12-19 11:45 | CASEMGMT ---
Social Work Note HCPOA and LW are on file at [facility]. SW printed off copies and placed on pt's chart. Puja Serrano AMMONIA TECHNICIAN, HVAC JOURNEYMAN
--- NOTE | 2020-12-19 12:41 | CHAPLAIN ---
Type of Pastoral Visit _x__ Initial Visit ___ Follow-up Visit ___ On-call Visit ___ General Patient Visit ___ Spiritual Assessment ___ Family Conference ___ Bereavement ___ Rapid Response ___ Code Blue ___ Other (describe below) Pastoral Care Referral From _x__ Patient ___ Family ___ Nurse ___ Physician ___ Lasting Machine Operator ___ Assistant Spa Manager ___ Other (describe below) Sacrament/Intervention _x__ Active listening ___ Anointing ___ Episcopalian ___ Bereavement ___ Communion ___ Vicky exploration ___ _x__ Life review ___ Prayer ___ Reconciliation ___ Sacrament of Sick _x__ Supportive presence ___ Wedding ___ Other (describe below) Pastoral Comments
--- NOTE | 2020-12-19 13:50 | RAD_ITS ---
STUDY: GASTROGRAFIN SMALL BOWEL FOLLOW-THROUGH EXAMINATION. REASON FOR EXAM: Male, 75 years old. Partial small bowel obstruction -- with gastrografin through NG tube, IMAGE @ 6, 12, 24 HRS, PER DR. DENIZ MARQUEZ TECHNIQUE: GASTROGRAFIN was introduced through the indwelling nasogastric tube. Delayed imaging was obtained as per order. COMPARISON: None. FINDINGS: Contrast is seen in the colon. Minimally gaseous distention of small bowel loops. There is evidence of endoluminal stent grafting of the abdominal aorta and proximal common iliac arteries. RAD/Small Bowel Series Only IMPRESSION: Contrast is seen throughout the colon. Electronically Signed: Baljeet Thurman MD at 14:05 EDT , Service support ,
[2020-12-19] MEDS: metroNIDAZOLE 500 MG/100 ML BAG 100 MG IV ×2 (13:56→21:42)
--- NOTE | 2020-12-19 16:38 | PN.HOSP_ITS ---
Subjective Subjective Feeling better and reports flatus. Objective Data Objective Data Vital Signs: Vital Signs Temp Pulse Resp BP Pulse Ox 36.8 C 78 16 119/59 L 94 12/19/20 12:40 12/19/20 13:54 12/19/20 12:40 12/19/20 12:40 12/19/20 12:40 Oxygen Flow Rate (L/min) 3 Oxygen Delivery Method Nasal Cannula Weight: 69.8 kg Body Mass Index (BMI) 24.0 Intake & Output: Intake and Output for Last 24 Hours 12/17/20 12/18/20 12/19/20 23:59 23:59 23:59 Intake Total 1000 / 1000 1030.00 / 1030.00 Output Total 400 / 400 Balance 1000 / 1000 630.00 / 630.00 Lab / Micro Data Result Diagrams: 12/19/20 05:54 12/19/20 05:54 Labs: Laboratory Results - last 24 hr 12/18/20 20:35: WBC 9.8, RBC 4.11 L, Hgb 11.3 L, Hct 35.6 L, MCV 86.6, MCH 27.5, MCHC 31.7 L, RDW Std Deviation 47.0 H, RDW Coeff of Kylee 14.7 H, Plt Count 373, MPV 10.4, Immature Gran % (Auto) 0.300, Neut % (Auto) 83.4 H, Lymph % (Auto) 6.4 L, Coleman % (Auto) 5.1, Eos % (Auto) 3.8, Baso % (Auto) 1.0, Absolute Neuts (auto) 8.2 H, Absolute Lymphs (auto) 0.63 L, Nucleated RBC % 0 12/18/20 20:35: Sodium 140, Potassium 4.2, Chloride 108 H, Carbon Dioxide 25.0, Anion Gap 7, BUN 18, Creatinine 1.41 H, Estim Creat Clear Calc 41.67, Est GFR (MDRD) Af Amer 63, Est GFR (MDRD) Non-Af 52 L, BUN/Creatinine Ratio 12.8, Glucose 99, Calcium 9.4, Total Bilirubin 0.70, AST 12 L, ALT 16, Alkaline Phosphatase 72, Total Protein 6.6, Albumin 3.6, Globulin 3.0, Albumin/Globulin Ratio 1.2, Lipase 81 12/18/20 21:51: Urine Color Yellow, Urine Clarity Clear, Urine pH 6.0, Ur Specific [place] 1.015, Urine Protein Negative, Urine Glucose (UA) Normal, Urine Ketones 5 H, Urine Occult Blood Negative, Urine Nitrite Negative, Urine Bilirubin Negative, Urine Urobilinogen Normal, Ur Leukocyte Esterase Negative, Urine RBC 0 SEEN, Urine WBC 0 SEEN, Ur Squamous Epith Cells 0 SEEN, Urine Bact eria 0 SEEN, Urine Mucus 0 SEEN 12/19/20 05:54: WBC 13.7 H, RBC 4.25 L, Hgb 11.4 L, Hct 36.4 L, MCV 85.6, MCH 26.8 L, MCHC 31.3 L, RDW Std Deviation 46.5 H, RDW Coeff of Kylee 14.8 H, Plt Count 367, MPV 10.5, Immature Gran % (Auto) 0.500, Neut % (Auto) 88.9 H, Lymph % (Auto) 4.1 L, Coleman % (Auto) 5.8, Eos % (Auto) 0.2, Baso % (Auto) 0.5, Absolute Neuts (auto) 12.2 H, Absolute Lymphs (auto) 0.56 L, Nucleated RBC % 0, Differential Comment SCANNED 12/19/20 05:54: Sodium 139, Potassium 4.1, Chloride 109 H, Carbon Dioxide 23.0, Anion Gap 7, BUN 16, Creatinine 1.34 H, Estim Creat Clear Calc 43.85, Est GFR (MDRD) Af Amer 67, Est GFR (MDRD) Non-Af 55 L, BUN/Creatinine Ratio 11.9, Glucose 110 H, Calcium 8.8 Radiography Diagnostic Testing: Radiology Impression Abdomen/Pelvis CT 12/18/20 20:29 IMPRESSION: Dilated loops of small bowel without discrete transition point. Probable early small bowel obstruction. Aortobiiliac stent graft with infrarenal abdominal aortic aneurysm. Left inguinal hernia containing a knuckle of small bowel without evidence of obstruction point. Electronically Signed: Jhoan Garcia DO at 23:13 EDT Tel , Service support , KUB X-Ray 12/19/20 01:00 IMPRESSION: NG tube with tip and side-port in the stomach Electronically Signed: Jhoan Garcia DO at 1:16 EDT Tel , Service support , Physical Exam Const alert HEENT head/scalp atraumatic Head and Scalp: normocephalic Resp normal respiratory effort, no retractions, no use of accessory muscles and clear to auscultation bilaterally Cardio regular rate, regular rhythm, S1 normal heart sound and S2 normal heart sound GI GI Narrative: hypoactive BS Extremity normal to inspection Assessment & Plan Assessment/Plan (1) Partial small bowel obstruction: PLAN: 1. pSBO earlier today was feeling better, clamped NGT, but felt worse and placed back on suction. General surgery following Small bowel series ordered 2. CAD Stent placed in June Continue clopidogrel which will need to be continued at least until June 3. VTE prophylaxis with SCDs Charges/Coding Procedures Hospitalists Procedures: Other Procedure - See Report (non billable rounding as pt admitted after midnight.)
[2020-12-19] MEDS: Fluticasone 0.05% 1 SPRAY NASAL.SRY NASAL (17:00)
[2020-12-19] MEDS: BENZOCAINE/MENTHOL 1 LOZENGE MUCOUS MEM (17:09)
[2020-12-19] MEDS: LORazepam 0.5 MG Tablet 1.5 MG PO (21:38)
[2020-12-19] MEDS: Verapamil SR 240 MG Tablet 120 MG PO (21:39)
[2020-12-19] MEDS: Tamsulosin HCl 0.4 MG Capsule PO (21:39)
[2020-12-20 01:00] VITALS: BP 111/46; PULSE 94; RESP 18; TEMP 36.9; O2SAT 94
[2020-12-20] MEDS: Enalaprilat 1.25 MG/ML Vial IV (01:07)
[2020-12-20 06:25] VITALS: BP 104/52; PULSE 84; RESP 16; TEMP 36.6; O2SAT 96
[2020-12-20] MEDS: Lactated Ringers 1,000 ML 75 ML IV (06:28)
[2020-12-20] MEDS: metroNIDAZOLE 500 MG/100 ML BAG 100 MG IV (06:28)
[2020-12-20 06:56] LABS: Absolute Lymphocyte Count 0.96 X10^3/uL (0.83-4.51); Absolute Neutrophil Count 6.9 X10^3/uL (2.0-7.7); Basophil# 0.08 X10^3/uL; Basophil% 0.9 % (0-1); Eosinophil# 0.23 X10^3/uL; Eosinophils% 2.6 % (0-5); Hematocrit 32.8 % (40-54); Lymphocyte # 0.96 X10^3/ul (0.83-4.51); Lymphocyte % 10.8 % (19-41); Mean Corp Hgb Conc 30.5 g/dL (32-36); Mean Corpuscular Hgb 26.8 pg (27.0-32.0); Mean Corpuscular Volume 87.9 fL (80-94); Monocyte# 0.68 X10^3/uL; Monocyte% 7.7 % (0-10); NRBC Flagged by Analyzer 0 % (0-5); Neutrophil # 6.87 X10^3/uL (2.7-7.7); Neutrophil % 77.7 % (47-70); Platelet Count 355 K/mm3 (150-450); RBC Distribution Width CV 15.2 % (11.6-14.6); RBC Distribution Width SD 48.6 fl (35.1-43.9); Red Blood Count 3.73 M/mm3 (4.6-6.2); White Blood Count 8.9 K/mm3 (4.4-11.0)
[2020-12-20 07:22] LABS: Anion Gap 5 (5-15); BUN 21 mg/dL (7-18); BUN/Creat Ratio 13.3 RATIO (10-20); Calcium,Total 8.9 mg/dL (8.5-10.1); Chloride 112 mmol/L (98-107); Creatinine, Serum 1.58 mg/dL (0.70-1.30); EST Glomerular Filtration Rate 46 mL/min (>60); Est Glom Filt Rate - Afr Amer 55 mL/min (>60); Estimated Creatinine Clearance 37.19 ml/min; Glucose 90 mg/dL (74-106); Potassium 3.9 mmol/L (3.5-5.1); Sodium Level 143 mmol/L (136-145)
[2020-12-20] MEDS: Budesonide Respules 0.5 MG/2 ML AMPUL.NEB. INHALATION (07:26)
[2020-12-20 07:27] VITALS: PULSE 102; RESP 20; O2SAT 94
[2020-12-20] MEDS: Ipratropium/Albuterol Sulfate 3 ML AMPUL.NEB INHALATION (07:27)
[2020-12-20 08:45] VITALS: BP 122/62; PULSE 89; RESP 16; TEMP 36.8; O2SAT 92
[2020-12-20] MEDS: Fluticasone 0.05% 1 SPRAY NASAL.SRY NASAL (08:48)
--- NOTE | 2020-12-20 08:58 | PCM.PN.SRG ---
Subjective Subjective He reports that he had return of bowel function yesterday and spent 4 hours in the bathroom.Seen and examined during AM rounds. He states he overall feels much better but still has some mild nausea still lingering. He does ask for diet advancement. Regarding the abdominal pain he commented on yesterday, he says this is largely dissipated and he is back to his baseline mild tenderness. Objective Data Objective Data Vital Signs: Vital Signs Temp Pulse Resp BP Pulse Ox 97.9 F 102 H 20 H 104/52 L 94 12/20/20 06:25 12/20/20 07:27 12/20/20 07:27 12/20/20 06:25 12/20/20 07:27 Oxygen Flow Rate (L/min) 3 Oxygen Delivery Method Room Air Weight: 153 lb 14.122 oz Body Mass Index (BMI) 24.0 Intake & Output: Intake and Output for Last 24 Hours 12/18/20 12/19/20 12/20/20 23:59 23:59 23:59 Intake Total 1000 / 1000 1315.00 / 1315.00 1313.75 / 1313.75 Output Total 650 / 650 200 / 200 Balance 1000 / 1000 665.00 / 665.00 1113.75 / 1113.75 Lab / Micro Data Result Diagrams: 12/20/20 05:50 12/20/20 05:50 Labs: Laboratory Results - last 24 hr 12/20/20 05:50: WBC 8.9, RBC 3.73 L, Hgb 10.0 L, Hct 32.8 L, MCV 87.9, MCH 26.8 L, MCHC 30.5 L, RDW Std Deviation 48.6 H, RDW Coeff of Kylee 15.2 H, Plt Count 355, MPV 11.0, Immature Gran % (Auto) 0.300, Neut % (Auto) 77.7 H, Lymph % (Auto) 10.8 L, [place] % (Auto) 7.7, Eos % (Auto) 2.6, Baso % (Auto) 0.9, Absolute Neuts (auto) 6.9, Absolute Lymphs (auto) 0.96, Nucleated RBC % 0 12/20/20 05:50: Sodium 143, Potassium 3.9, Chloride 112 H, Carbon Dioxide 26.0, Anion Gap 5, BUN 21 H, Creatinine 1.58 H, Estim Creat Clear Calc 37.19, Est GFR (MDRD) Af Amer 55 L, Est GFR (MDRD) Non-Af 46 L, BUN/Creatinine Ratio 13.3, Glucose 90, Calcium 8.9 Physical Exam Const oriented x3 and no apparent distress Constitutional Narrative: Appears relaxed in repose Resp normal respiratory effort GI soft to palpation GI Narrative: Mild tenderness in the mid abdomen. Assessment & Plan Assessment/Plan (1) Partial small bowel obstruction: PLAN: ?Patient had Gastrografin administered yesterday but experienced return of bowel function before his order KUBs could be completed. I asked that one of the studies be performed just to document contrast transit. Indeed, contrast is seen transiting through the entirety of the colon and rectum. Patient's nasogastric tube was removed yesterday and he is tolerating ice chips. Patient is feeling much better today and requesting a diet. ?Advance to a regular diet (ordered) ?If patient is tolerating above, would recommend transitioning antibiotic therapy to p.o. and prescribing a empiric course given concern for possible enteritis/colitis with patient's white count yesterday, abdominal tenderness, and his symptoms of nausea and now diarrhea. Charges/Coding Visit Charges Inpatient E&M: 15196 Subs Hosp L2
--- NOTE | 2020-12-20 11:22 | PCM.DC ---
Discharge Instructions Diet Discharge Diet: Low fat / Low cholesterol (no carbonation) Dressing / Incision Call your doctor if you observe: Fever of 101 or Higher and - (worsening abdominal pain) Follow Up Care Test Results: Test results from this visit will be discussed in further detail at your follow-up appointment, if applicable. Discharge Plan Admission Admit Date/Time: 12/19/20 00:11 Primary Reason for Your Visit: small bowel obstruction Attending Provider: Heri Ewing Primary Care Provider: Krystyna Sanchez Consulting Providers: Torres Smith Discharge Orders/Prescriptions Prescriptions: New ciprofloxacin HCl [Cipro] 500 mg tablet 500 mg PO BID Qty: 10 RF: 0 Continued ipratropium-albuterol 20-100 mcg/actuation mist 2 puff INHALATION PRN PRN (Reason: Shortness Of Breath) Qty: 4 RF: 5 fluticasone propionate 50 mcg/actuation spray,suspension 1 spray INTRANASAL BID RF: 0 clopidogrel 75 mg tablet 75 mg PO QHS Qty: 90 RF: 1 losartan 50 mg tablet 50 mg PO DAILY Qty: 90 RF: 3 cholecalciferol (vitamin D3) 2,000 UNIT capsule 2,000 unit PO DAILY RF: 0 formoterol fumarate [Perforomist] 20 mcg/2 mL solution for nebulization 2 ml inhalation Q12H RF: 0 budesonide 0.5 mg/2 mL suspension for nebulization 0.5 mg INHALATION Q12H Qty: 180 RF: 6 tamsulosin 0.4 mg capsule 0.4 mg PO QHS Qty: 90 RF: 1 lorazepam 0.5 mg tablet 1.5 mg PO QHS PRN (Reason: sleep) 30 Days Qty: 90 RF: 1 verapamil 120 mg tablet extended release 120 mg PO QHS Qty: 90 RF: 3 Discontinued garlic 1,000 MG capsule 2,000 mg PO DAILY RF: 0 Red Rice Yeast 2 cap PO DAILY RF: 0 loperamide [Anti-Diarrheal (loperamide)] 2 MG capsule 2 mg PO Q2H PRN PRN (Reason: Diarrhea) RF: 0 eploj-[id number]-epa-fish oil-D3 1 EACH capsule 1 ea PO DAILY RF: 0 Referrals / Follow Up: Krystyna Sanchez MD [Primary Care Provider] - Within 2 Weeks Disposition Disposition (needs filled in before D/C Order can be placed): Home, Self Care
--- NOTE | 2020-12-20 11:30 | PCM.DC.SUM ---
Providers Date of Admission: 12/19/20 Primary Care Physician: Dr. Krystyna Sanchez MD Consultations 12/19/20 01:25 Consult: General Surgery Routine Consulting Provider: Torres Smith Reason for Consult: partial sbo EMERGENT Consult: No MD Notified: Yes Date Notified: 12/19/20 Time Notified: 07:58 Method of Notification: Text Reason For Visit: PARTIAL SMALL BOWEL OBSTRUCTION Diagnosis Discharge Diagnosis (1) Partial small bowel obstruction: Status: Acute Code(s): K56.600 - Partial intestinal obstruction, unspecified as to cause Medications at Discharge Home Medications cholecalciferol (vitamin D3) 2,000 unit PO DAILY 06/29/19 ipratropium 20 mcg-albuterol 100 mcg/actuation mist for inhalation 2 puff INHALATION PRN PRN #4 g 12/11/19 fluticasone propionate 50 mcg/actuation nasal spray,suspension 1 spray INTRANASAL BID 05/09/20 clopidogrel 75 mg tablet 75 mg PO QHS #90 tab 07/05/20 losartan 50 mg tablet 50 mg PO DAILY #90 tablet 08/09/20 budesonide 0.5 mg/2 mL suspension for nebulization 0.5 mg INHALATION Q12H #180 ml 08/19/20 tamsulosin 0.4 mg capsule 0.4 mg PO QHS #90 cap 10/25/20 lorazepam 0.5 mg tablet 1.5 mg PO QHS PRN 30 Days #90 tab 10/29/20 verapamil 120 mg tablet,extended release 120 mg PO QHS #90 tab 11/25/20 formoterol fumarate [Perforomist] 2 ml INHALATION Q12H 12/18/20 ciprofloxacin HCl [Cipro] 500 mg PO BID #10 tab 12/20/20 Hospital Course Operations None Procedures None Summary of Care Provided Minutes Spent on Discharge: 28 Hospital Course: 75-year-old male presents with abdominal pain. Patient found to have a partial small bowel obstruction. NG tube was placed. Was clamped temporarily but required being put back to suction. Eventually the NG tube was removed and patient is feeling well. Today, the patient's diet was advanced and he tolerated that well. Pt will be discharge with ciprofloxacin for 5 more days. Physical Exam Const alert Resp normal respiratory effort Cardio regular rate, regular rhythm, S1 normal heart sound and S2 normal heart sound GI normal to inspection, nondistended, normoactive bowel sounds, soft to palpation, non-tender and non-distended Extremity normal to inspection Weight / BMI Weight Weight: 69.8 kg Body Mass Index (BMI) 24.0 ABG / Lab / Microbiology Data Result Diagrams: 12/20/20 05:50 12/20/20 05:50 Laboratory: Laboratory Results - last 24 hr 12/20/20 05:50: WBC 8.9, RBC 3.73 L, Hgb 10.0 L, Hct 32.8 L, MCV 87.9, MCH 26.8 L, MCHC 30.5 L, RDW Std Deviation 48.6 H, RDW Coeff of Kylee 15.2 H, Plt Count 355, MPV 11.0, Immature Gran % (Auto) 0.300, Neut % (Auto) 77.7 H, Lymph % (Auto) 10.8 L, [place] % (Auto) 7.7, Eos % (Auto) 2.6, Baso % (Auto) 0.9, Absolute Neuts (auto) 6.9, Absolute Lymphs (auto) 0.96, Nucleated RBC % 0 12/20/20 05:50: Sodium 143, Potassium 3.9, Chloride 112 H, Carbon Dioxide 26.0, Anion Gap 5, BUN 21 H, Creatinine 1.58 H, Estim Creat Clear Calc 37.19, Est GFR (MDRD) Af Amer 55 L, Est GFR (MDRD) Non-Af 46 L, BUN/Creatinine Ratio 13.3, Glucose 90, Calcium 8.9 D/C Instructions Discharge Diet: Low fat / Low cholesterol (no carbonation) Call your doctor if you observe: Fever of 101 or Higher and - (worsening abdominal pain) Meaningful Use Info Meaningful Use Diagnoses (Choose all that apply): None applicable Discharge Plan Admission Admit Date/Time: 12/19/20 00:11 Primary Reason for Your Visit: small bowel obstruction Attending Provider: Heri Ewing Primary Care Provider: Krystyna Sanchez Consulting Providers: Torres Smith Discharge Orders/Prescriptions Prescriptions: New ciprofloxacin HCl [Cipro] 500 mg tablet 500 mg PO BID Qty: 10 RF: 0 Continued ipratropium-albuterol 20-100 mcg/actuation mist 2 puff INHALATION PRN PRN (Reason: Shortness Of Breath) Qty: 4 RF: 5 fluticasone propionate 50 mcg/actuation spray,suspension 1 spray INTRANASAL BID RF: 0 clopidogrel 75 mg tablet 75 mg PO QHS Qty: 90 RF: 1 losartan 50 mg tablet 50 mg PO DAILY Qty: 90 RF: 3 cholecalciferol (vitamin D3) 2,000 UNIT capsule 2,000 unit PO DAILY RF: 0 formoterol fumarate [Perforomist] 20 mcg/2 mL solution for nebulization 2 ml inhalation Q12H RF: 0 budesonide 0.5 mg/2 mL suspension for nebulization 0.5 mg INHALATION Q12H Qty: 180 RF: 6 tamsulosin 0.4 mg capsule 0.4 mg PO QHS Qty: 90 RF: 1 lorazepam 0.5 mg tablet 1.5 mg PO QHS PRN (Reason: sleep) 30 Days Qty: 90 RF: 1 verapamil 120 mg tablet extended release 120 mg PO QHS Qty: 90 RF: 3 Discontinued garlic 1,000 MG capsule 2,000 mg PO DAILY RF: 0 Red Rice Yeast 2 cap PO DAILY RF: 0 loperamide [Anti-Diarrheal (loperamide)] 2 MG capsule 2 mg PO Q2H PRN PRN (Reason: Diarrhea) RF: 0 [id number] oil-D3 1 EACH capsule 1 ea PO DAILY RF: 0 Referrals / Follow Up: Krystyna Sanchez MD [Primary Care Provider] - Within 2 Weeks Disposition Disposition (needs filled in before D/C Order can be placed): Home, Self Care Charges/Coding Visit Charges Inpatient E&M: 61621 Disch Hosp
[2020-12-20 11:55] VITALS: BP 118/55; PULSE 99; RESP 16; TEMP 36.7; O2SAT 92
--- NOTE | 2020-12-20 13:34 | NURSING ---
Spoke with Dr Alexis who requested we do not have pt DC on antibiotic due to his aneurysm, he asked this RN to call [facility] and cancel prescription, also this RN called pt and discussed not taking antibiotic and instead taking probiotic lactobacillus per Dr Alexis request. pt verbalized understanding.
== END 2020-12-20 12:10 | disposition home or self-care (01) | DRG 390 ==
LOC: ED 12-19 00:06 → MS3 12-19 00:39
PROVIDERS: Admitting Provider Hospitalist; Emergency Provider Emergency Medicine; PCP Internal Medicine
DX: K56.600 Partial intestinal obstruction, unspecified as to cause (principal); J44.9 Chronic obstructive pulmonary disease, unspecified; K52.9 Noninfective gastroenteritis and colitis, unspecified; K40.90 Unilateral inguinal hernia, without obstruction or gangrene, not specified as recurrent; I12.9 Hypertensive chronic kidney disease with stage 1 through stage 4 chronic kidney disease, or unspecified chronic kidney disease; N18.32 Chronic kidney disease, stage 3b; E78.00 Pure hypercholesterolemia, unspecified; E78.5 Hyperlipidemia, unspecified; Z95.5 Presence of coronary angioplasty implant and graft; Z90.49 Acquired absence of other specified parts of digestive tract; I25.10 Atherosclerotic heart disease of native coronary artery without angina pectoris; I71.4 Abdominal aortic aneurysm, without rupture; I25.2 Old myocardial infarction; Z79.02 Long term (current) use of antithrombotics/antiplatelets; Z82.49 Family history of ischemic heart disease and other diseases of the circulatory system; Z86.79 Personal history of other diseases of the circulatory system; Z88.6 Allergy status to analgesic agent; Z86.73 Personal history of transient ischemic attack (TIA), and cerebral infarction without residual deficits; Z85.048 Personal history of other malignant neoplasm of rectum, rectosigmoid junction, and anus; Z96.89 Presence of other specified functional implants; Z98.41 Cataract extraction status, right eye; Z98.42 Cataract extraction status, left eye; Z87.891 Personal history of nicotine dependence
CPT/HCPCS: 36415; 74018; 74177; 74250; 80048; 80053; 81001; 83690; 85025; 94640; 99285; J7120; A4216; J0696; J2405

== ENCOUNTER 2020-12-31 08:00 | Outpatient (RCR) | payer SELFPAY ==
[2020-11-13 13:48] VITALS: BMI 23.8
== END 2020-12-31 23:59 ==
LOC: CR 08:00
PROVIDERS: PCP Internal Medicine; Visit Provider Internal Medicine Cardiovascular Disease
DX: Z00.00 Encounter for general adult medical examination without abnormal findings (principal)

== ENCOUNTER 2021-01-02 09:28 | Outpatient (RCR) | payer SELFPAY ==
[2021-01-01 00:40] VITALS: BMI 23.8
== END 2021-01-30 23:59 ==
LOC: CR 09:28
PROVIDERS: PCP Internal Medicine; Visit Provider Internal Medicine Cardiovascular Disease
DX: Z00.00 Encounter for general adult medical examination without abnormal findings (principal)

== ENCOUNTER → 2021-02-26 15:45 | Outpatient (CLI) | payer MEDICARE, OTHER, SELFPAY ==
[2021-02-26 16:40] LABS: Absolute Lymphocyte Count 0.41 X10^3/uL (0.83-4.51); Basophil# 0.03 X10^3/uL; Basophil% 0.5 % (0-1); Hematocrit 35.8 % (40-54); Hemoglobin 11.5 g/dL (13.0-16.5); Lymphocyte # 0.41 X10^3/ul (0.83-4.51); Lymphocyte % 6.3 % (19-41); Mean Corp Hgb Conc 32.1 g/dL (32-36); Mean Corpuscular Hgb 27.1 pg (27.0-32.0); Mean Corpuscular Volume 84.2 fL (80-94); Mean Platelet Vol. 10.6 fl (6.2-12.0); Monocyte# 0.07 X10^3/uL; Monocyte% 1.1 % (0-10); NRBC Flagged by Analyzer 0 % (0-5); Neutrophil # 5.97 X10^3/uL (2.7-7.7); Neutrophil % 91.9 % (47-70); POSITIVE DIFFERENTIAL YES; Platelet Count 420 K/mm3 (150-450); RBC Distribution Width CV 14.8 % (11.6-14.6); RBC Distribution Width SD 45.4 fl (35.1-43.9); Red Blood Count 4.25 M/mm3 (4.6-6.2); White Blood Count 6.5 K/mm3 (4.4-11.0)
[2021-02-26 16:43] LABS: Differential Indicated SCAN CRITERIA MET
[2021-02-26 17:08] LABS: Amphetamine Urine VISTA NEGATIVE (<1000 ng/mL); Barbiturate Urine VISTA NEGATIVE (< 200 ng/mL); Benzodiazepine Urine VISTA NEGATIVE (< 200 ng/mL); Cocaine Urine VISTA NEGATIVE (< 300 ng/mL); Ecstacy Urine VISTA NEGATIVE (< 500 ng/mL); Methadone Urine VISTA NEGATIVE (< 300 ng/mL); PCP Urine VISTA NEGATIVE (< 25 ng/mL); THC Urine VISTA NEGATIVE (< 50 ng/mL); Vista UDS pH Range 6
[2021-02-26 17:33] LABS: Platelet Estimate ADEQUATE (ADEQ); Red Cell Morphology NORM C+C NORMAL (NORM C&C)
== END ==
PROVIDERS: PCP Internal Medicine; Referring Provider Internal Medicine; Visit Provider Internal Medicine
DX: Z51.81 Encounter for therapeutic drug level monitoring (principal); I10 Essential (primary) hypertension
CPT/HCPCS: 36415; 80307; 85025

== ENCOUNTER 2021-03-04 06:12 | Outpatient (RCR) | payer SELFPAY ==
[2021-01-31 00:31] VITALS: BMI 23.8
== END 2021-04-01 23:59 ==
LOC: CR 06:12
PROVIDERS: PCP Internal Medicine; Referring Provider Internal Medicine Cardiovascular Disease; Visit Provider Internal Medicine Cardiovascular Disease
DX: Z00.00 Encounter for general adult medical examination without abnormal findings (principal)

== ENCOUNTER → 2021-04-10 07:42 | Outpatient (CLI) | payer MEDICARE, OTHER, SELFPAY ==
--- NOTE | 2021-04-10 07:44 | AAVD_ITS ---
Reason For Study: AAA Aorta Measurements Aorta Doppler Measurements Proximal aorta measures1.92 x 1.9cm. in cross- Peak systolic flow velocities within the proximal sectional axis. aorta measure 86.0 cm/sec. Proximal aorta measures1.69cm. in longitudinal Peak systolic flow velocities within the mid aorta axis. measure 36.9 cm/sec. Mid aorta measures2.38 x 2.4.cm. in cross- Peak systolic flow velocities within the distal sectional axis. aorta measure 38.7 cm/sec. Mid aorta measures2.29cm. in longitudinal axis. Distal aorta measures4.86 x 5.37cm. in cross- sectional axis. Distal aorta measures4.85cm. in longitudinal axis. Prox graft 1.98 cm in long. Prox limb 1 1.16 x 1.2 x 1.11cm. Prox limb 2 1.13 x 1.17 x 1.02 cm. Mid limb 1 1.34 x 1.29 x 1.33 cm. Mid limb 2 1.16 x 1.25 x 1.23 cm. Dist limb 1 1.39 x 1.3 x 1.19 cm. Dist limb 2 1.2 x 1.23 x 1.31 cm. Left Iliac Artery Left iliac artery measures 1.21 x 1.11 cm. in the cross-sectional axis. Left iliac artery measures 1.14 cm. in the longitudinal axis. Peak systolic velocity in the left iliac artery measures 46.0 cm/sec. Right Iliac Artery Right iliac artery measures 1.0 x 1.07 cm. in the cross-sectional axis. Right iliac artery measures 1.01 cm. in the longitudinal axis. Peak systolic velocity in the right iliac artery measures 67.9 cm/sec. Procedure Aorta IVC Iliac vasculature or bypass grafts 59832. The exam was diagnostic. Exam performed in department. VL/Abd Aortic/IVC Duplex scan Interpretation Summary Infrarenal abdominal aortic stent graft in place with residual aneurysm sac 4.8 6 x 5.37 cm in diameter Left common iliac 1.21 x 1.11 cm in diameter Right common iliac 1 x 1.07 cm in diameter Stent graft limb measurements as noted No arterial flow noted within the aneurysm Ordering Physician: Sawyer Rodríguez Performed By: Calin Meza RVT
== END ==
PROVIDERS: PCP Internal Medicine; Referring Provider Surgery; Visit Provider Surgery
DX: I71.4 Abdominal aortic aneurysm, without rupture (principal)
CPT/HCPCS: 93978

== ENCOUNTER → 2021-04-11 07:46 | Outpatient (CLI) | payer MEDICARE, OTHER, SELFPAY ==
--- NOTE | 2021-04-11 07:48 | CT_ITS ---
STUDY: CTA ABDOMEN/PELVIS WITH CONTRAST REASON FOR EXAM: Male, 75 years old. Follow-up for abdominal aortic aneurysm. Prior left hemicolectomy. RADIATION DOSAGE (If Supplied By Facility): CTDIvol = ( 22.82 ) mGy, DLP = ( 380.76 ) mGycm TECHNIQUE: The examination was performed with the intravenous administration of IV 100mL Isovue-370. Post-processing of the angiographic images was performed, with multiplanar reformation and 3D reconstruction. Individualized dose optimization techniques were used for this CT. COMPARISON: Comparison is made with prior study dated 10/02/2020. FINDINGS: CTA Abdomen T Pelvis Emphysematous changes at the lung bases with evidence of bullous formation more prominent in the right lower lobe. The visualized portions of the heart are within normal limits. Normal liver. Normal gallbladder and extrahepatic biliary system. Normal spleen. Normal pancreas. Normal bilateral adrenal glands. Normal right kidney. 2.1 cm cyst in the lateral aspect of the left kidney. There is a moderate hiatal hernia. Normal small intestine. Prior left hemicolectomy. Patient is status post appendectomy. The patient is status post endoluminal stenting of the distal aorta. The distal limbs are seen within the common iliac arteries bilaterally. There is no evidence of endoluminal leak. The [place] abdominal aorta has a transverse dimension of 5.4 cm. Normal inferior vena cava. Normal retroperitoneum. Distended urinary bladder. Normal abdominal wall. There are diffuse degenerative changes of the visualized lumbar spine. CT/CTA Abdomen W/WO Contrast IMPRESSION: Status post ENDO luminal stenting of the fusiform infrarenal abdominal aortic aneurysm. The endoluminal graft is patent. No evidence of endoluminal leak. Electronically Signed: Baljeet Thurman MD at 12:16 EST , Service support ,
[2021-04-11 08:00] VITALS: BP 143/79; PULSE 85; RESP 16; TEMP 36.4; O2SAT 96; BMI 24.3
[2021-04-11] MEDS: 0.9% Normal Saline 1,000 ML 1000 ML IV (08:10)
== END | disposition home or self-care (01) ==
PROVIDERS: PCP Internal Medicine; Referring Provider Surgery; Visit Provider Surgery
DX: I71.4 Abdominal aortic aneurysm, without rupture (principal); Z90.49 Acquired absence of other specified parts of digestive tract
CPT/HCPCS: 74175; J7030; Q9967; A4216

== ENCOUNTER 2021-05-15 09:50 | Outpatient (CLI) | payer MEDICARE, OTHER, SELFPAY ==
--- NOTE | 2021-05-15 09:53 | CDU_ITS ---
Reason For Study: carotid stenosis Rt. Velocities/BP Lt. Velocities/BP Prox CCA 72.1/8.2 cm/sec. Prox CCA 79.9/14.7 cm/sec. Mid CCA 73.4/12.1 cm/sec. Mid CCA 73.4/14.7 cm/sec. Dist CCA 77.3/13.4 cm/sec. Dist CCA 70.8/14.7 cm/sec. Prox ICA 53.9/8.2 cm/sec. Prox ICA 74.7/22.6 cm/sec. Mid ICA 60.4/14.7 cm/sec. Mid ICA 132.1/42.6 cm/sec. Dist ICA 82.5/25.2 cm/sec. Dist ICA 141.2/37.1 cm/sec. Rt. ICA/CCA = 1.1. Lt. ICA/CCA = 1.9. Prox ECA 72.1/6.9 cm/sec. Prox ECA 83.8/12.1 cm/sec. Rt. Vert. 52.5/13.4 cm/sec. Lt. Vert. 51.3/17.3 cm/sec. Right Extracranial There is homogeneous, smooth atherosclerotic plaque noted in the right common carotid artery. There is heterogeneous, irregular atherosclerotic plaque noted in the right internal carotid artery. There is intimal thickening but no significant atherosclerotic plaque noted in the right external carotid artery. Antegrade flow is noted in the right vertebral artery. Left Extracranial There is homogeneous, smooth atherosclerotic plaque noted in the left common carotid artery. There is homogeneous, smooth atherosclerotic plaque noted in the left internal carotid artery. The left internal carotid artery is very tortuous. There is homogeneous, smooth atherosclerotic plaque noted in the left external carotid artery. Antegrade flow is noted in the left vertebral artery. Procedure Carotid Duplex [id number]. This is a Carotid Duplex examination using B-mode, color flow and specral Doppler. The exam was diagnostic. Exam performed in department. VL/Carotid Duplex Ultrasound Interpretation Summary Minimal heterogenous plaque of the proximal right internal carotid artery with less than 50% stenosis Less than 50% stenosis right external carotid artery Very tortuous left mid internal carotid artery with velocity elevation to as hi gh as 141 cm second peak systolic flow. This would be consistent with 50 to 69% stenosis however th is may be artificially elevated secondary to the kinking Less than 50% stenosis left external carotid artery Patent antegrade vertebral arteries bilaterally No change from the previous examination of June 03, 2020 Ordering Physician: Sawyer Rodríguez Performed By: Calin Meza RVT
== END 2021-05-15 23:59 | disposition short-term general hospital (02) ==
LOC: CVS 09:52
PROVIDERS: PCP Internal Medicine; Referring Provider Surgery; Visit Provider Surgery
DX: I65.23 Occlusion and stenosis of bilateral carotid arteries (principal)
CPT/HCPCS: 93880

== ENCOUNTER 2021-06-19 10:16 | Day surgery (SDC) | payer MEDICARE, OTHER, SELFPAY ==
--- NOTE | 2021-06-18 09:13 | EKG12_ITS ---
Test Reason : PRE OP Blood Pressure : / mmHG Vent. Rate : 077 BPM Atrial Rate : 077 BPM P-R Int : 158 ms QRS Dur : 074 ms QT Int : 372 ms P-R-T Axes : 071 019 -25 degrees QTc Int : 420 ms Normal sinus rhythm Nonspecific T wave abnormality Abnormal ECG Confirmed by TAYLOR RODRIGUEZ, JOSE ([id number]), primer expeditor and drier CHELSEA HASSAN ([id number]) on 06/19/2021 9:09:44 AM Referred By: Sawyer Rodríugez Confirmed By:JOSE VAZQUEZ MD
[2021-06-19] VITALS (9 sets, daily range): BP systolic 101–140; BP diastolic 58–70; PULSE 74–87; RESP 16–20; TEMP 36.2–36.7; O2SAT 95–99; BMI 24.7
--- NOTE | 2021-06-19 10:38 | HP.PCM_ITS ---
History and Physical Date of Admission: 06/19/21 Intake Visit Reasons: CAROTID F/U 05/15, HERNIA Chief Complaint: f/u carotid us and [facility] [employer] Required: No Is patient in pain?: No Allergies aspirin Allergy (Verified 05/20/21 14:22) Shortness of breath adhesive Adverse Reaction (Verified 05/20/21 14:22) Rash amoxicillin trihydrate [From Augmentin] Adverse Reaction (Verified 05/20/21 14:22) Other atorvastatin calcium [From Lipitor] Adverse Reaction (Verified 05/20/21 14:22) leg cramps metoprolol succinate [From Toprol XL] Adverse Reaction (Verified 05/20/21 14:22) Rash naproxen [From Naprosyn] Adverse Reaction (Verified 05/20/21 14:22) Shortness of breath paroxetine HCl [From Paxil] Adverse Reaction (Verified 05/20/21 14:22) Unknown potassium clavulanate [From Augmentin] Adverse Reaction (Verified 05/20/21 14:22) tingling all over propoxyphene HCl [From Darvon] Adverse Reaction (Verified 05/20/21 14:22) Unknown sertraline HCl [From Zoloft] Adverse Reaction (Verified 05/20/21 14:22) Unknown simvastatin [From Zocor] Adverse Reaction (Verified 05/20/21 14:22) Unknown tiotropium bromide [From Spiriva with HandiHaler] Adverse Reaction (Verified 05/20/21 14:22) Other RUBBING ALCOHOL Adverse Reaction (Uncoded 05/20/21 14:22) Rash Medications cholecalciferol (vitamin D3) 2,000 unit PO DAILY 06/29/19 [History Confirmed 05/20/21] ipratropium 20 mcg-albuterol 100 mcg/actuation mist for inhalation 2 puff INHALATION PRN PRN #4 g 12/11/19 [Rx Confirmed 05/20/21] fluticasone propionate 50 mcg/actuation nasal spray,suspension 1 spray INTRANASAL BID 05/09/20 [History Confirmed 05/20/21] budesonide 0.5 mg/2 mL suspension for nebulization 0.5 mg INHALATION Q12H #180 ml 08/19/20 [Rx Confirmed 05/20/21] formoterol fumarate [Perforomist] 2 ml INHALATION Q12H 12/18/20 [History Confirmed 05/20/21] clopidogrel 75 mg tablet 75 mg PO QHS #90 tab 01/07/21 [Rx Confirmed 05/20/21] prednisone 10 mg tablet 10 mg PO QDAY #30 tab 04/03/21 [Rx Confirmed 05/20/21] verapamil 240 mg tablet,extended release 240 mg PO QHS #90 tab 04/10/21 [Rx Confirmed 05/20/21] losartan 100 mg tablet 100 mg PO DAILY #90 tab 04/17/21 [Rx Confirmed 05/20/21] tamsulosin 0.4 mg capsule 0.4 mg PO QHS #90 cap 04/21/21 [Rx Confirmed 05/20/21] lorazepam 0.5 mg tablet 1.5 mg PO QHS PRN 30 Days #90 tab 04/30/21 [Rx Confirmed 05/20/21] PFSH Medical History AAA (abdominal aortic aneurysm) Abdominal aortic aneurysm (AAA) greater than 5.5 cm in diameter in male Alcohol abuse Allergy to dog dander Anemia Asthma 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 BPH (benign prostatic hyperplasia) Bronchiectasis Cancer Chest pain COPD (chronic obstructive pulmonary disease) Coronary artery disease Epistaxis Essential (primary) hypertension Former smoker History of colon cancer History of ST elevation myocardial infarction (STEMI) (05/27/07) Hyperlipidemia Hypertension Hypoxia Insomnia Iron deficiency Kidney stones Left inguinal hernia Low back pain Myocardial infarct 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) On home oxygen therapy Personal history of other malignant neoplasm of rectum, rectosigmoid junction, and anus Short bowel syndrome Sinus bradycardia 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 classification Tachycardia Surgical History History of coronary artery stent placement (06/07/20) History of endovascular stent graft for abdominal aortic aneurysm (AAA) (06/25/20) History of left heart catheterization (05/24/20) history of right eye surgery History of right inguinal hernia repair History of tonsillectomy History of tonsillectomy and adenoidectomy Hx of appendectomy Hx of bilateral cataract extraction Hx of umbilical hernia repair Status post laparoscopic colectomy Family History Father Heart disease Hypertension High cholesterol CVA (cerebral vascular accident) Mother Dementia Social History Smoking Status: Former smoker pack-years: 67 second hand exposure: No alcohol intake: never substance use type: does not use caffeine: Yes Type: coffee Number of servings: 4 what type of physical activity do you participate in: other details: pulmonary rehab frequency: 3-4 times per week HPI HPI HPI: BETTE ASTORGA, is a 76 M who presents to the office today for surgical follow-up of extracranial carotid artery occlusive disease as well as a left inguinal hernia. I have discussed with him that the carotid duplex imaging as noted below suggest 50 to 69% stenosis of the left internal carotid but this could be actually artificially elevated and that he actually could have closer to 50% stenosis. He is asymptomatic. His testing is unchanged from the prior testing of June 03, 2020. The patient is wearing a hernia belt. He continues to have a very symptomatic left inguinal hernia. He is anxiously awaiting repair. May 15, 2021 Reason For Study: carotid stenosis Rt. Velocities/BP Lt. Velocities/BP Prox CCA 72.1/8.2 cm/sec. Prox CCA 79.9/14.7 cm/sec. Mid CCA 73.4/12.1 cm/sec. Mid CCA 73.4/14.7 cm/sec. Dist CCA 77.3/13.4 cm/sec. Dist CCA 70.8/14.7 cm/sec. Prox ICA 53.9/8.2 cm/sec. Prox ICA 74.7/22.6 cm/sec. Mid ICA 60.4/14.7 cm/sec. Mid ICA 132.1/42.6 cm/sec. Dist ICA 82.5/25.2 cm/sec. Dist ICA 141.2/37.1 cm/sec. Rt. ICA/CCA = 1.1. Lt. ICA/CCA = 1.9. Prox ECA 72.1/6.9 cm/sec. Prox ECA 83.8/12.1 cm/sec. Rt. Vert. 52.5/13.4 cm/sec. Lt. Vert. 51.3/17.3 cm/sec. Right Extracranial There is homogeneous, smooth atherosclerotic plaque noted in the right common carotid artery. There is heterogeneous, irregular atherosclerotic plaque noted in the right internal carotid artery. There is intimal thickening but no significant atherosclerotic plaque noted in the right external carotid artery. Antegrade flow is noted in the right vertebral artery. Left Extracranial There is homogeneous, smooth atherosclerotic plaque noted in the left common carotid artery. There is homogeneous, smooth atherosclerotic plaque noted in the left internal carotid artery. The left internal carotid artery is very tortuous. There is homogeneous, smooth atherosclerotic plaque noted in the left external carotid artery. Antegrade flow is noted in the left vertebral artery. Procedure Carotid Duplex 74866. This is a Carotid Duplex examination using B-mode, color flow and specral Doppler. The exam was diagnostic. Exam performed in department. VL/Carotid Duplex Ultrasound Interpretation Summary Minimal heterogenous plaque of the proximal right internal carotid artery with less than 50% stenosis Less than 50% stenosis right external carotid artery Very tortuous left mid internal carotid artery with velocity elevation to as h igh as 141 cm second peak systolic flow. This would be consistent with 50 to 69% stenosis however this may be artificially elevated secondary to the kinking Less than 50% stenosis left external carotid artery Patent antegrade vertebral arteries bilaterally No change from the previous examination of June 03, 2020 Ordering Physician: Sawyer Rodríguez Performed By: Calin Meza RVT 05/15/21 1247Date Sawyer Rodríguez MD My recent note of May 01, 2021 reflects the following HPI: BETTE ASTORGA, is a 76 M who presents to the office today for 2 separate issues. 1 is follow-up of a infrarenal abdominal aortic stent graft repair and the second is a symptomatic left inguinal hernia. As noted below on 04/11/[address] abdomen and pelvis. This demonstrated very good result with resolution of his infrarenal abdominal aortic aneurysm nice placement of the stent graft and now transverse dimension of 5.4 cm down from a preoperative diameter of 6 cm. Patient is very happy with results. He has no abdominal pain. He did have some left groin pain from his left inguinal hernia. He now wears a truss with improvement. He has purchased an old home and is doing renovations. He states that he has been careful with that. He has had no TIAs and stroke or cardiac event in the past 6 months. He did have coronary stents June 2020. He is on clopidogrel therapy. This is causing me to hold off on his elective left inguinal hernia repair My note from 10/28/2020 reflects the following Additional Comments: Probably direct left inguinal hernia. Still reducible. Patient with 5 coronary stents and clopidogrel anticoagulation. At this point with the stents having since been placed June 07, 2020 I do not feel comfortable proceeding with left inguinal surgery. I propose for him at this time CTA of the abdomen evaluating his infrarenal abdominal aortic aneurysm April 2021. I am hopeful that he will be able to see Dr. Christiano Steinberg May 2021. I would then subsequently see him myself with plans toward a Malorie left inguinal herniorrhaphy June 2021 performed under local anesthetic. This is a mesh style repair. I would need to at least briefly have him off his clopidogrel therapy at that time. HPI: BETTE ASTORGA, is a 75 M who presents to the office today for ongoing surgical discussion regarding a left inguinal hernia. On June 25, 2020 I placed a left radial arterial line and then performed an infrarenal abdominal aortic aneurysm stent graft repair with a Arthur excluder main body 28.5 x 14.5 x 12 cm device from the left common femoral artery. On the contralateral side a 23 x 12 mm gonzalez bottom device was placed. A 16 x 18 mm extension was placed on the left. Because of what was felt to be a type II endoleak coming from approximately a 28.5 x 3.3 cm proximal cuff was placed. The patient however presents today regarding a left inguinal hernia. He has had a previous open right inguinal herniorrhaphy per and also had a laparoscopic sigmoid colectomy in 2007 followed by chemoradiation. He has chronic diarrhea. His most recent colonoscopy was 09/08/2018 demonstrating no recurrence.. The patient states that he bled freely during the colectomy and required blood transfusion. 04/11/2021 STUDY: CTA ABDOMEN/PELVIS WITH CONTRAST REASON FOR EXAM: Male, 75 years old. Follow-up for abdominal aortic aneurysm. Prior left hemicolectomy. RADIATION DOSAGE (If Supplied By Facility): CTDIvol = ( 22.82 ) mGy, DLP = ( 380.76 ) mGycm TECHNIQUE: The examination was performed with the intravenous administration of IV 100mL Isovue-370. Post-processing of the angiographic images was performed, with multiplanar reformation and 3D reconstruction. Individualized dose optimization techniques were used for this CT. COMPARISON: Comparison is made with prior study dated 10/02/2020. FINDINGS: CTA Abdomen T Pelvis Emphysematous changes at the lung bases with evidence of bullous formation more prominent in the right lower lobe. The visualized portions of the heart are within normal limits. Normal liver. Normal gallbladder and extrahepatic biliary system. Normal spleen. Normal pancreas. Normal bilateral adrenal glands. Normal right kidney. 2.1 cm cyst in the lateral aspect of the left kidney. There is a moderate hiatal hernia. Normal small intestine. Prior left hemicolectomy. Patient is status post appendectomy. The patient is status post endoluminal stenting of the distal aorta. The distal limbs are seen within the common iliac arteries bilaterally. There is no evidence of endoluminal leak. The pe[place]anga abdominal aorta has a transverse dimension of 5.4 cm. Normal inferior vena cava. Normal retroperitoneum. Distended urinary bladder. Normal abdominal wall. There are diffuse degenerative changes of the visualized lumbar spine. CT/CTA Abdomen W/WO Contrast IMPRESSION: Status post ENDO luminal stenting of the fusiform infrarenal abdominal aortic aneurysm. The endoluminal graft is patent. No evidence of endoluminal leak. Electronically Signed: Baljeet Thurman MD at 12:16 EST , Service support , 12/18/2020 STUDY: GASTROGRAFIN SMALL BOWEL FOLLOW-THROUGH EXAMINATION. REASON FOR EXAM: Male, 75 years old. Partial small bowel obstruction -- with gastrografin through NG tube, IMAGE @ 6, 12, 24 HRS, PER DR. DENIZ MARQUEZ TECHNIQUE: GASTROGRAFIN was introduced through the indwelling nasogastric tube. Delayed imaging was obtained as per order. COMPARISON: None. FINDINGS: Contrast is seen in the colon. Minimally gaseous distention of small bowel loops. There is evidence of endoluminal stent grafting of the abdominal aorta and proximal common iliac arteries. RAD/Small Bowel Series Only IMPRESSION: Contrast is seen throughout the colon. Electronically Signed: Baljeet Thurman MD at 14:05 EDT , Service support , 06/03/2020 Reason For Study: CAD Rt. Velocities/BP Lt. Velocities/BP Prox CCA 62/9 cm/sec. Prox CCA 70/14 cm/sec. Mid CCA 73/14 cm/sec. Mid CCA 61/18 cm/sec. Dist CCA 58/13 cm/sec. Dist CCA 65/12 cm/sec. Prox ICA 50/12 cm/sec. Prox ICA 167/49 cm/sec. Mid ICA 37/13 cm/sec. Mid ICA 123/38 cm/sec. Dist ICA 49/18 cm/sec. Dist ICA 126/38 cm/sec. Rt. ICA/CCA = .8. Lt. ICA/CCA = 2.6. Prox ECA 74/8 cm/sec. Prox ECA 71/11 cm/sec. Rt. Vert. 42/11 cm/sec. Lt. Vert. 45/18 cm/sec. Right Extracranial There is homogeneous, smooth atherosclerotic plaque noted in the right common carotid artery. There is heterogeneous, smooth atherosclerotic plaque noted in the right internal carotid artery. There is no significant atherosclerotic plaque noted in the right external carotid artery. Antegrade flow is noted in the right vertebral artery. Left Extracranial There is homogeneous, smooth atherosclerotic plaque noted in the left common carotid artery. There is homogeneous, irregular atherosclerotic plaque noted in the left internal recio tid artery. The left internal carotid artery is very tortuous. There is homogeneous, smooth atherosclerotic plaque noted in the left external carotid artery. Antegrade flow is noted in the left verteb ral artery. Procedure Carotid Duplex [id number]. Technically difficult Left ICA due to tortuosity. Exam performed in department. Interpretation Summary Minimal smooth heterogenous plaque at the proximal right internal carotid artery with less than 50% stenosis Less than 50% stenosis right external carotid artery Homogeneous irregular plaque in the proximal left internal carotid. The left internal carotid is noted to be very tortuous with kinking. Velocities are elevated at 167 cm/s peak systolic flow with an end-diastolic velocity of 49. This would be consistent with 50 to 69% stenosis however the tight tortuosity may be artificially elevating this estimation Less than 50% stenosis left external carotid artery Patent and antegrade vertebrals bilaterally Ordering Physician: RODRICK ZAPATA Referring Physician: Krystyna Sanchez Performed By: Edil VILLA RVT, Carrie and Student 06/03/20 1625Date Sawyer Rodríguez MD Exam Const General: cooperative, healthy appearing, comfortable and no acute distress Nutritional Appearance: average body habitus Orientation: alert and awake [facility] Head: normal to inspection Resp Effort & Inspection: normal respiratory effort Auscultation: clear to auscultation bilaterally Cardio Other: Bilateral femoral and popliteal pulses are 3+ GI Other: Soft, nontender, aorta is palpable but not expansile or pulsatile Assessment and Plan Assessment and Plan (1) History of endovascular stent graft for abdominal aortic aneurysm (AAA): Status: Resolved Comment: Infrarenal abdominal aortic aneurysm stent graft repair (2) Left inguinal hernia: Status: Acute (3) Carotid stenosis, left: Status: Acute Plan - Dr. Sawyer Rodríguez MD: The patient has had a very successful infrarenal abdominal aortic aneurysm stent graft repair. His clinical exam is unremarkable and he is asymptomatic. His CTA is very solid. I recommend aortic duplex imaging at 1 year The patient had coronary stents placed June 2020. I recommend not ceasing his clopidogrel therapy for 1 year and will delay on his left inguinal hernia repair until we are able to hold the Plavix. Patient is scheduled return to see me June and we will then confer definitively with Dr. Christiano Steinberg that we could temporarily hold his medication. Prior to the patient's aortic stent graft repair he was identified is having 50 to 69% asymptomatic stenosis of his left carotid. June 2021 we will recheck with a carotid duplex exam. June 2021 the patient will return to my office to review his carotid duplex imaging and to assess planning for his Malorie left inguinal herniorrhaphy. He has had an opportunity ask and have questions answered. I appreciate the ongoing opportunity of assisting with the surgical care. Copy: Dr. Krystyna Sanchez and Dr. Christiano Rodríguez M.D., F.A.C.S. ROS General General: Yes fatigue and colon cancer; No weight change, appetite, breast cancer or weakness HEENT HEENT: No difficulty swallowing, eye injury, eye surgery, swollen glands or hoarseness Endo Endocrine: No thyroid disease, diabetes mellitus, thyroid cancer, Hair loss, heat intolerance or cold intolerance Musc Musculoskeletal: Yes arthritis; No back problems, rheumatoid arthritis, gout or joint pain Cardio Cardiovascular: Yes heart disease, high blood pressure and heart attack; No murmur, pacemaker, atrial fibrillation, heart stent, palpitations, shortness of breat with exertion or chest pain Psych Psychiatric: No depression, anxiety or hearing voices Resp Respiratory: No shortness of breath, No sleep apnea, No cough, Yes COPD, Yes asthma, No emphysema and No wheezing Jj Hematologic: Yes blood thinners, No blood disorders, No bleeding, No anemia and No blood clots Neuro Neurologic: No weakness Exam Const General: cooperative and comfortable Nutritional Appearance: average body habitus Orientation: alert and awake [facility] Head: normal to inspection Eyes General: appearance normal, both eyes and all related structures Chest Other: Increased anterior posterior diameter Resp Effort & Inspection: normal respiratory effort Auscultation: clear to auscultation bilaterally Cardio Rate: regular rate Rhythm: regular rhythm GI Palpation: soft and no hepatosplenomegaly Auscultation: normal bowel sounds Other: Right groin solid and intact, sizable but still reducible left inguinal hernia Bilateral testicles descended no mass Skin General: no rashes or lesions noted Neuro General: patient alert and patient awake Extrem General: no calf tenderness Psych Appearance: grossly normal Assessment and Plan Assessment and Plan (1) Carotid stenosis, left: Status: Acute (2) Left inguinal hernia: Status: Acute Plan - Dr. Sawyer Rodríguez MD: I recommend to the patient a Malorie left inguinal herniorrhaphy with mesh. This can be accomplished with monitored anesthesia care and local anesthetic. I described the technique, benefit, risk of alternatives. No guarantees of success have been offered. Carotid duplex imaging follow-up 1 year. I will request that he hold his clopidogrel 3 days preoperatively and likely the day of and after surgery as well. We will contact Dr. Christiano Steinberg to see when timing would be permitted based upon the patient's previous history of coronary stents. The patient has had an opportunity to ask and have questions answered. I appreciate the ongoing opportunity of assisting with the surgical care. Copy: Dr. Christiano Steinberg and Dr. Krystyna Rodríguez, MGayle., F.A.C.S. I have re-examined the patient. There are no clinical changes since date of exam.
--- NOTE | 2021-06-19 10:39 | DCINST_ITS ---
Discharge Instructions Procedure General Surgery Diet Discharge Diet: Light diet - advance as tolerated (if you have questions about your diet instructions, please talk to you doctor.) Activity Discharge Activity: May Not Drive (for 3-5 days or while taking narcotic pain medicine.) May shower in (days): 1 Lifting Restrictions: 10 pounds Dressing / Incision Call your doctor if your incision/area has: Continuous Slow Oozing, Sudden Increased Bleeding, Increased Pain/ Swelling, Increased Redness and Foul Smelling Discharge Call your doctor if you observe: Fever of 101 or Higher Suture Line Care: Avoid Pulling/Pushing and Avoid Pinching/Bending Additional Dressing/Incision Instructions:: Change or remove dressing in 4 days. Leave steri-strips in place for 1 week. Follow Up Care Please Follow Up With: Sawyer Rodríguez MD When: Call [phone] to make an appointment to be seen in about 10 days. Test Results: Test results from this visit will be discussed in further detail at your follow-up appointment, if applicable. Discharge Plan Admission Attending Provider: Sawyer Rodríguez Primary Care Provider: Krystyna Sanchez Discharge Orders/Prescriptions Prescriptions: No Action fluticasone propionate 50 mcg/actuation spray,suspension 1 spray INTRANASAL BID RF: 0 carvedilol 3.125 mg tablet 3.125 mg PO BID Qty: 60 RF: 0 formoterol fumarate [Perforomist] 20 mcg/2 mL solution for nebulization 2 ml inhalation Q12H RF: 0 lorazepam [Ativan] 0.5 mg tablet 1.5 mg PO QHS PRN (Reason: sleep) RF: 0 garlic 2,000 mg Capsule 2,000 mg PO DAILY RF: 0 red yeast rice 600 mg Tablet 1,200 mg PO DAILY RF: 0 clopidogrel 75 mg tablet 75 mg PO QHS Qty: 90 RF: 3 verapamil 240 mg tablet extended release 240 mg PO QHS Qty: 90 RF: 3 losartan 100 mg tablet 100 mg PO DAILY Qty: 90 RF: 3 tamsulosin 0.4 mg capsule 0.4 mg PO QHS Qty: 90 RF: 1 prednisone 10 mg tablet 10 mg PO PRN PRN (Reason: COPD EXACERBATION) Qty: 30 RF: 0 ipratropium-albuterol 20-100 mcg/actuation mist 2 puff INHALATION PRN PRN (Reason: Shortness Of Breath) Qty: 4 RF: 5 levofloxacin 500 mg tablet 500 mg PO Q24H 5 Days Qty: 5 RF: 0 Other Ambulatory Orders: Basic Metabolic Profile (BMP) (Routine) Timeframe: 20210612 Facility: [facility] - Location: Laboratory Ordered By: Dr. Sawyer Rodríguez CBC-Complete Blood Cnt No Diff (Routine) Timeframe: 20210612 Facility: [facility] - Location: Laboratory Ordered By: Dr. Sawyer Rodríguez
[2021-06-19 11:20] LABS: Hematocrit 35.4 % (40-54); Hemoglobin 11.2 g/dL (13.0-16.5); Mean Corp Hgb Conc 31.6 g/dL (32-36); Mean Corpuscular Hgb 26.5 pg (27.0-32.0); Mean Corpuscular Volume 83.9 fL (80-94); Mean Platelet Vol. 10.3 fl (6.2-12.0); Platelet Count 385 K/mm3 (150-450); RBC Distribution Width CV 16.1 % (11.6-14.6); RBC Distribution Width SD 49.5 fl (35.1-43.9); Red Blood Count 4.22 M/mm3 (4.6-6.2); White Blood Count 8.3 K/mm3 (4.4-11.0)
[2021-06-19] MEDS: Lactated Ringers 1,000 ML 15 ML IV ×3 (11:20→15:37)
[2021-06-19 11:34] LABS: Anion Gap 6 (5-15); BUN 34 mg/dL (7-18); BUN/Creat Ratio 21.5 RATIO (10-20); Calcium,Total 9.2 mg/dL (8.5-10.1); Chloride 110 mmol/L (98-107); Creatinine, Serum 1.58 mg/dL (0.70-1.30); EST Glomerular Filtration Rate 45 mL/min (>60); Est Glom Filt Rate - Afr Amer 55 mL/min (>60); Estimated Creatinine Clearance 36.61 ml/min; Glucose 94 mg/dL (74-106); Potassium 3.8 mmol/L (3.5-5.1); Sodium Level 140 mmol/L (136-145)
--- NOTE | 2021-06-19 12:30 | LES_PTH ---
PATIENT: BETTE ASTORGA [place] [facility] [id number] AGE/SX: 76/M ROOM: RE06/19/[address]: Dr. Sawyer Rodríugez MD : 1945 BED: DIS: 06/19/2021 SPEC #: [id number] RECD: 06/20/21 14:55 STATUS: LAUREN PALMA #: [id number] SOLO: 06/19/21 12:[address]: Sawyer Rodríguez DEPT: SURGICAL PATHOLOGY RECD BY: Kathleen Espinosa ENTERED: 06/20/21 09:20 SP TYPE: Lesion OTHR DR: Dr. Krystyna Sanchez MD Tissues: Skin, NOS Procedures: Surgery Specimen Level IV HEADER OPERATION: Inguinal hernia with mesh, removal of left groin lesion PRE-OP DIAGNOSIS: Left inguinal hernia TISSUE SUBMITTED: Left groin lesion MICROSCOPIC DIAGNOSIS Left groin lesion, biopsy: Intradermal nevus. SJ:gabi 06/24/2021 MICROSCOPIC DESCRIPTION Slides are reviewed. GROSS DESCRIPTION Received in fixative is one container labeled with the patient's name and designated left groin lesion. The specimen consists of a piece of padilla-white skin measuring 0.6 x 0.5 x 0.3 cm. The specimen is inked, bisected and submitted entirely in one cassette. / [place]AS[place]:gabi 06/20/2021 TC:1 CPT: 91300
--- NOTE | 2021-06-19 14:29 | PCM.OPRPT ---
Problems Associated Problem List Diagnoses (1) Left inguinal hernia: Report of Operation Date of Procedure: 06/19/21 Pre-Operative Diagnosis: Left inguinal hernia, left groin skin tag Post-Operative Diagnosis: Same Surgery/Procedure Performed:: Malorie left inguinal herniorrhaphy with excision left groin skin tag Bard mesh appreciate keyhole Lot number [id number], reference [id number], expiry date 09/27/2025 Description of Surgical Findings:: Timeout informed consent was obtained. 76-year-old gentleman was taken to the operating placed on table underwent monitored anesthesia care. He received 900 mg of clindamycin intravenously. The left groin was sterilely prepped and draped. 1% lidocaine mixed 50-50 with 0.5% Marcaine was used as a local anesthetic. A total of 33 cc was used. A transverse incision was made in the left groin, sharp dissection was performed so as to identify the external oblique. It was opened in line with the fascia to the external ring. The ileal inguinal nerve identified and protected. Sharp and blunt dissection was used to dissect free the direct and indirect area. An indirect sac was rapidly identified. This was completely dissected free than it was inverted. The transversalis fascia was secured with a running 3-0 Ethibond reapproximating the internal ring. A apron cover Bard keyhole mesh was placed around the internal ring securing the ilioinguinal nerve with the cord structures. The mesh was secured to itself with 3-0 Ethibond the tails were trimmed and placed beneath the external oblique. The mesh was secured to the pubic tubercle shelving edge of Poupart's and aponeurosis of the internal/external oblique with interrupted 3-0 Ethibond. Excellent coverage was achieved. The external oblique was approximated a running 3-0 Vicryl. Subdermal tissues approximated running subicular 4-0 Monocryl. Steri-Strips Telfa OpSite dressing applied. The patient had an exophytic skin tag area that was irritated in the medial left groin area. Local was instilled this was sharply amputated with scissors submitted to specimen and the base was treated with cautery. Sponge and instrument and needle counts were reported to the surgeon to be correct. Specimen skin tag. Drains none. Blood loss minimal. The patient was taken to the recovery area in satisfactory addition without apparent complication Sawyer Rodríguez M.D., F.A.C.S. Surgeon: Sawyer Rodríguez Type of Anesthesia: Local MAC Anesthesiologist: Ryan Islas
--- NOTE | 2021-06-19 16:48 | SUR.PHASEII ---
PATIENT HAD THE URGE TO VOID, HOWEVER HE CAME OUT OF RR AND SAID HE ONLY WENT A SMALL AMOUNT. I BLADDER SCANNED HIM AND I GOT >199. VOIDING TRIALS WILL CONTINUE UNTIL HE CAN EMPTY HIS BLADDER MORE. HE HAS HAD 4 CUPS OF COFFEE AND ONE COKE AND HIS IV IS STILL RUNNING.
== END 2021-06-19 23:59 | disposition home or self-care (01) ==
LOC: SDC 10:18 → AC 10:18
PROVIDERS: Anesthesiology; PCP Internal Medicine; Referring Provider Surgery; Visit Provider Surgery
PROC: (CPT 49505; principal; 2021-06-19 12:15)
DX: K40.90 Unilateral inguinal hernia, without obstruction or gangrene, not specified as recurrent (principal); I71.4 Abdominal aortic aneurysm, without rupture; D23.5 Other benign neoplasm of skin of trunk; I65.23 Occlusion and stenosis of bilateral carotid arteries; I25.10 Atherosclerotic heart disease of native coronary artery without angina pectoris; Z87.891 Personal history of nicotine dependence; R52 Pain, unspecified; Z79.899 Other long term (current) drug therapy
CPT/HCPCS: 49505; 11200; 00830; 80048; 85027; 87426; 88305; 93005; C9803; J7120; C1781; J2405

== ENCOUNTER → 2021-12-29 | Outpatient (CLI) | payer MEDICARE, OTHER, SELFPAY ==
[2021-12-29 15:18] LABS: Amphetamine Urine VISTA NEGATIVE (<1000 ng/mL); Barbiturate Urine VISTA NEGATIVE (< 200 ng/mL); Benzodiazepine Urine VISTA NEGATIVE (< 200 ng/mL); Cocaine Urine VISTA NEGATIVE (< 300 ng/mL); Ecstacy Urine VISTA NEGATIVE (< 500 ng/mL); Methadone Urine VISTA NEGATIVE (< 300 ng/mL); PCP Urine VISTA NEGATIVE (< 25 ng/mL); THC Urine VISTA NEGATIVE (< 50 ng/mL); Vista UDS pH Range 5
== END | disposition home or self-care (01) ==
LOC: LAB 14:13 → LABSPEC 14:24
PROVIDERS: PCP Internal Medicine; Referring Provider Internal Medicine; Visit Provider Internal Medicine
DX: Z51.81 Encounter for therapeutic drug level monitoring (principal)
CPT/HCPCS: 80307; 80346

== ENCOUNTER → 2022-03-25 | Outpatient (CLI) | payer MEDICARE, OTHER, SELFPAY | END | disposition home or self-care (01) | PROVIDERS: PCP Internal Medicine; Referring Provider Internal Medicine; Visit Provider Internal Medicine | DX: Z51.81 Encounter for therapeutic drug level monitoring (principal); F51.01 Primary insomnia ==

== ENCOUNTER 2022-05-01 08:43 | Outpatient (CLI) | payer MEDICARE, OTHER, SELFPAY ==
--- NOTE | 2022-05-01 08:45 | AAVD_ITS ---
Reason For Study: AAA Aorta Measurements Aorta Doppler Measurements Proximal aorta measures2.50cm x 2.73cm. in cross- Peak systolic flow velocities within the proximal sectional axis. aorta measure 33 cm/sec. Proximal aorta measures2.29cm. in longitudinal Peak systolic flow velocities within the mid aorta axis. measure 55 cm/sec. Mid aorta measures3.92cm x 4.35cm. in cross- Peak systolic flow velocities within the distal sectional axis. aorta measure 55 cm/sec. Mid aorta measures3.84cm. in longitudinal axis. Distal aorta measures4.89cm x 5.74cm. in cross- sectional axis. Distal aorta measures4.89cm. in longitudinal axis. Prox graft: 2.22cm x 2.30cm x 2.19cm, 29cm/s Prox limb 1: 1.29cm x 1.41cm x 1.16cm, 55cm/s Prox limb 2: 1.25cm x 1.24cm x 1.23cm, 42cm/s Mid limb 1: 1.46cm x 1.77cm x 1.37cm, 55cm/s Mid limb 2: 1.35cm x 1.53cm x 1.26cm, 56cm/s Dist limb 1: 1.11cm x 1.18cm x 1.20cm, 53cm/s Dist limb 2: 1.43cm x 1.43cm x 1.41cm, 203cm/s. Left Iliac Artery Left iliac artery measures 1.43cm x 1.43 cm. in the cross-sectional axis. Left iliac artery measures 1.41 cm. in the longitudinal axis. Peak systolic velocity in the left iliac artery measures 203 cm/sec. Right Iliac Artery Right iliac artery measures 1.11cm x 1.18 cm. in the cross-sectional axis. Right iliac artery measures 1.20 cm. in the longitudinal axis. Peak systolic velocity in the right iliac artery measures 53 cm/sec. Procedure Aorta IVC Iliac vasculature or bypass grafts [id number]. Exam performed in department. VL/Abd Aortic/IVC Duplex scan Interpretation Summary Maximal diameter of the abdominal aorta 4.89 x 5.74 cm. Evidence of endovascular stent graft in place with patent bilateral limbs with dimensions as noted. Normal to low aortic flow velocity identified. My review of waveforms also suggest normal flow left iliac Endoleak is not identified Previous ultrasound of April 10, 2021 suggested aortic dimensions of 4.86 x 5 .37 Previous abdominal CTA of April 11, 2021 has maximum aortic diameter of 5.8 cm Ordering Physician: Sawyer Rodríguez Referring Physician: Krystyna Sanchez Performed By: Tatiana Espinoza, DAISY, RVT
== END 2022-05-01 23:59 | disposition home or self-care (01) ==
LOC: CVS 08:44
PROVIDERS: PCP Internal Medicine; Visit Provider Surgery
DX: I65.29 Occlusion and stenosis of unspecified carotid artery (principal); I71.40 Abdominal aortic aneurysm, without rupture, unspecified; Z95.828 Presence of other vascular implants and grafts
CPT/HCPCS: 93978

== ENCOUNTER → 2022-05-06 | Outpatient (CLI) | payer MEDICARE, OTHER, SELFPAY ==
--- NOTE | 2022-05-06 09:57 | CDU_ITS ---
Reason For Study: Carotid stenosis Rt. Velocities/BP Lt. Velocities/BP Prox CCA 68.3/6.9 cm/sec. Prox CCA 65.7/11.6 cm/sec. Mid CCA 55.1/11.6 cm/sec. Mid CCA 60.4/12.5 cm/sec. Dist CCA 54.1/10.7 cm/sec. Dist CCA 60.4/15.1 cm/sec. Prox ICA 43.9/10.7 cm/sec. Prox ICA 79.5/20.1 cm/sec. Mid ICA 74.4/20.3 cm/sec. Mid ICA 133.9/27.9 cm/sec. Dist ICA 89.1/23.9 cm/sec. Dist ICA 135.7/37.1 cm/sec. Rt. ICA/CCA = 1.62. Lt. ICA/CCA = 2.25. Prox ECA 61.7/5 cm/sec. Prox ECA 77.9/9 cm/sec. Rt. Vert. 41.3/9.9 cm/sec. Lt. Vert. 49.4/14.5 cm/sec. Right Extracranial There is homogeneous, smooth atherosclerotic plaque noted in the right common carotid artery. There is heterogeneous, irregular atherosclerotic plaque noted in the right internal carotid artery. There is intimal thickening but no significant atherosclerotic plaque noted in the right external carotid artery. Antegrade flow is noted in the right vertebral artery. Left Extracranial There is homogeneous, smooth atherosclerotic plaque noted in the left common carotid artery. There is homogeneous, irregular atherosclerotic plaque noted in the left internal carotid artery. The left internal carotid artery is very tortuous. There is homogeneous, smooth atherosclerotic plaque noted in the left external carotid artery. Antegrade flow is noted in the left vertebral artery. Procedure This is a Carotid Duplex examination using B-mode, color flow and specral Doppler. Carotid Duplex [id number]. Exam performed in department. VL/Carotid Duplex Ultrasound Interpretation Summary Minimal irregular plaque at the proximal right internal carotid artery with les s than 50% stenosis Less than 50% stenosis right external carotid artery Irregular plaque at the left internal carotid artery with a tortuous left inter nal carotid artery noted with 50 to 69% stenosis Less than 50% stenosis left external carotid artery Patent and antegrade vertebral arteries bilaterally No change from the previous examination of May 15, 2021 Ordering Physician: Sawyer Rodríguez Referring Physician: Krystyna Sanchez Performed By: Puja Urena RVT
== END | disposition home or self-care (01) ==
LOC: CVS 09:56
PROVIDERS: PCP Internal Medicine; Referring Provider Surgery; Visit Provider Surgery
DX: I65.22 Occlusion and stenosis of left carotid artery (principal)
CPT/HCPCS: 93880

== ENCOUNTER → 2022-05-19 | Outpatient (CLI) | payer MEDICARE, OTHER, SELFPAY ==
--- NOTE | 2022-05-19 12:50 | CT_ITS ---
STUDY: CTA OF THE ABDOMINAL AORTA. REASON FOR EXAM: Male, 77 years old. AAA REPAIR RADIATION DOSAGE (If Supplied By Facility): CTDIvol = ( 11.31 ) mGy, DLP = ( 209.90 ) mGycm TECHNIQUE: Axial CT angiography multi-detector data acquisition was obtained from the to the following intravenous administration of IV 100mL Isovue-370. Axial images and MIP images were reconstructed from the axial data set. Post-processing of the angiographic images was performed, with multiplanar reformation and 3D reconstruction. Individualized dose optimization techniques were used for this CT. TECHNICAL QUALITY: Good COMPARISON: Comparison is made with prior study dated 04/11/2021. Descriptors of Narrowing: None (0%) Mild (< 50%) Moderate (50-70%) Severe (70-90%) Subtotal/Total Occlusion (90-100%) Non-Evaluable (technically non-diagnostic FINDINGS: Emphysematous changes at the lung bases more pronounced in the right lower lobe. Coronary artery calcification. Abdominal aorta: Atherosclerotic calcification of the abdominal aorta. The [place] [place] abdominal aorta has a transverse dimension of 5.5 cm. Neural thrombus is seen. Endoluminal stent grafting is seen. The iliac limbs are seen. There has been no change. Celiac and superior mesenteric arteries: No demonstrated narrowing. Inferior mesenteric artery: No demonstrated narrowing. Right renal artery(arteries): No demonstrated narrowing. Left renal artery(arteries): No demonstrated narrowing. Sigmoid diverticulosis. Left renal cyst. CT/CTA Abdomen W/WO Contrast IMPRESSION: Stable appearance of the [employer] abdominal aorta with the endoluminal stent grafting. There has been no change. Electronically Signed: Baljeet Thurman MD at 14:30 EST ,
[2022-05-19 13:31] LABS: CREATININE FINGERSTICK 1.1 mg/dL (0.70-1.30); EGFR FINGERSTICK > 60.0000 mL/min (>60)
== END | disposition home or self-care (01) ==
LOC: CT 12:48
PROVIDERS: PCP Internal Medicine; Referring Provider Surgery; Visit Provider Surgery
DX: I25.10 Atherosclerotic heart disease of native coronary artery without angina pectoris (principal); I71.40 Abdominal aortic aneurysm, without rupture, unspecified; I70.0 Atherosclerosis of aorta; R91.8 Other nonspecific abnormal finding of lung field; N28.1 Cyst of kidney, acquired; K57.30 Diverticulosis of large intestine without perforation or abscess without bleeding
CPT/HCPCS: 74175; Q9967

== ENCOUNTER → 2022-07-06 | Outpatient (CLI) | payer MEDICARE, OTHER, SELFPAY ==
[2022-07-06 14:53] LABS: Basophil# 0.09 X10^3/uL; Basophil% 1.1 % (0-1); Eosinophil# 0.77 X10^3/uL; Hematocrit 42.9 % (40-54); Hemoglobin 13.5 g/dL (13.0-16.5); Lymphocyte % 12.9 % (19-41); Mean Corp Hgb Conc 31.5 g/dL (32-36); Mean Corpuscular Hgb 27.4 pg (27.0-32.0); Mean Corpuscular Volume 87.2 fL (80-94); Mean Platelet Vol. 10.8 fl (6.2-12.0); Monocyte# 0.58 X10^3/uL; Monocyte% 6.8 % (0-10); NRBC Flagged by Analyzer 0 % (0-5); Neutrophil # 5.96 X10^3/uL (2.7-7.7); Platelet Count 392 K/mm3 (150-450); RBC Distribution Width CV 15.7 % (11.6-14.6); RBC Distribution Width SD 50.2 fl (35.1-43.9); Red Blood Count 4.92 M/mm3 (4.6-6.2); White Blood Count 8.5 K/mm3 (4.4-11.0)
[2022-07-06 17:17] LABS: ALB/GLOB Ratio 1.1 RATIO (0.9-2.4); AST(SGOT) 14 U/L (15-37); Alanine Aminotransfer ALT/SGPT 24 U/L (16-61); Albumin, Serum 3.6 g/dL (3.2-5.0); Alkaline Phosphatase 88 U/L (45-117); Anion Gap 7 (5-15); BUN 27 mg/dL (7-18); BUN/Creat Ratio 16.8 RATIO (10-20); Calcium,Total 9.6 mg/dL (8.5-10.1); Chloride 104 mmol/L (98-107); Creatinine, Serum 1.61 mg/dL (0.70-1.30); EST Glomerular Filtration Rate 44 mL/min (>60); Est Glom Filt Rate - Afr Amer 54 mL/min (>60); Globulin 3.4 g/dL (2.2-4.2); Glucose 101 mg/dL (74-106); Potassium 4.1 mmol/L (3.5-5.1); Sodium Level 139 mmol/L (136-145)
== END | disposition home or self-care (01) ==
LOC: BIMLAB 13:52
PROVIDERS: PCP Internal Medicine; Referring Provider Internal Medicine; Visit Provider Internal Medicine
DX: J45.40 Moderate persistent asthma, uncomplicated (principal); I10 Essential (primary) hypertension; N40.0 Benign prostatic hyperplasia without lower urinary tract symptoms; Z12.5 Encounter for screening for malignant neoplasm of prostate
CPT/HCPCS: 36415; 80053; 84153; 85025; G0103

== ENCOUNTER 2022-07-25 07:15 | Inpatient (IN) | payer MEDICARE, OTHER, SELFPAY ==
[2022-07-25] VITALS (7 sets, daily range): BP systolic 132–167; BP diastolic 65–100; PULSE 81–95; RESP 14–18; TEMP 35.7–37.3; O2SAT 92–98; BMI 21.7; BMI 23.4
--- NOTE | 2022-07-25 07:19 | CT_ITS ---
INDICATION: diffuse pain -- IV PO Contrast. HISTORY OF COLON RESECTION FROM COLORECTAL CANCER. AAA REPAIR EXAMINATION: CT ABDOMEN AND PELVIS WITHOUT CONTRAST - CT Abdomen And Pelvis W/O Contrast Injection TECHNIQUE: Helically acquired images were obtained of the abdomen and pelvis without oral or IV contrast. A radiation dose optimization technique was used for this scan. IV Contrast dosage and agent: None. Oral contrast: None. COMPARISON: May 09, 2022 FINDINGS: LOWER CHEST: There are emphysematous changes within the visualized lung bases. There is a hiatal hernia. No cardiomegaly or pericardial effusion. The lack of intravenous contrast limits the evaluation of solid visceral organs. LIVER: Homogeneous. No focal mass. GALLBLADDER AND BILIARY TREE: No calcified gallstones. No gallbladder distension or wall edema. No intra- or extrahepatic biliary ductal dilation. PANCREAS: No focal cystic or solid mass. SPLEEN: Normal size without focal cystic or solid mass. ADRENAL GLANDS: No nodules. KIDNEYS AND URETERS: Normal renal size and position. A stable left renal cyst No hydronephrosis. PERITONEUM: No ascites or free air. No other fluid collection. BOWEL: There are fluid-filled dilated loops of small bowel concerning for a small bowel obstruction. There is a moderate amount of stool throughout the colon. There are diverticula arising from the colon. There are sutures visualized within the rectum. LYMPH NODES: No enlarged mesenteric or retroperitoneal lymph nodes. VESSELS: There is a stable infrarenal abdominal aortic aneurysm associated with a biiliac endograft. The aneurysm measures up to 5.5 cm in the transverse dimension. There is no evidence of endoleak. There are peripheral calcifications of the abdominal aorta. URINARY BLADDER: Unremarkable. REPRODUCTIVE ORGANS: The prostate gland is enlarged. ABDOMINAL WALL: No discrete abdominal or pelvic wall hernia. BONES: No lytic or blastic abnormality. CT/Abdomen/Pelvis without Cont IMPRESSION: Small bowel obstruction. Stable infrarenal abdominal aortic aneurysm measuring up to 5.5 cm in the transverse dimension. Enlarged prostate gland. Colonic diverticulosis. Moderate amount of stool throughout the colon. Emphysema. Atherosclerosis. Electronically Signed: Nuha Woodson MD at 10:13 EDT ,
--- NOTE | 2022-07-25 07:20 | ED.VIS.GI ---
HPI HPI - GI History of Present Illness Chief Complaint: Nausea/Vomiting Informant: patient and EMS Abdominal Pain/Flank Pain Onset: Today Context: Gradual Onset Timing: Continuous Quality: Aching Location: Diffuse (Points periumbilical) Current Severity: Moderate Maximum Severity: Moderate Nausea/Vomiting/Emesis GI Symptom: Positive for Nausea and Vomiting Onset: Hours (4) Diarrhea/Melena/Hematochezia GI Symptom: Negative for Diarrhea, Melena or Hematochezia Associated Symptoms Associated Symptoms: Negative for Dysuria, Frequency or Hematuria Narrative Narrative: Patient started having abdominal pain overnight, along with the bloating, followed by vomiting. Has been vomiting significantly over the past 4 hours, called EMS for evaluation here. Lives with his who is not ill. No fevers or chills. No recent travel out of the area or contact with anyone who he knows of who has similar symptoms. He has had multiple abdominal surgeries in the past, the last one was a herniorrhaphy and was sometime last year. He also has had another herniorrhaphy, AAA repair, and colorectal surgery remotely. No diarrhea acutely, last bowel movement was sometime yesterday. [facility] Medical History (Updated 07/25/22 @ 10:[address] Barney Eli MD) AAA (abdominal aortic aneurysm) Abdominal aortic aneurysm (AAA) greater than 5.5 cm in diameter in male Alcohol abuse Allergy to dog dander Anemia Arthritis Asthma Atherosclerotic heart disease of [place] coronary artery without angina pectoris Back pain BPH (benign prostatic hyperplasia) Bronchiectasis Cancer COPD (chronic obstructive pulmonary disease) Easy bruising Elevated PSA Epistaxis Essential (primary) hypertension Excessive bleeding Former smoker History of colon cancer History of ST elevation myocardial infarction (STEMI) (05/27/07) Hyperlipidemia Hypoxia Insomnia Iron deficiency Kidney stones Left inguinal hernia Low back pain Myocardial infarct 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) On home oxygen therapy Personal history of other malignant neoplasm of rectum, rectosigmoid junction, and anus Short bowel syndrome Sinus bradycardia Smoker 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 classification Tachycardia Therapeutic drug monitoring Wears glasses Home Medications fluticasone propionate 50 mcg/actuation nasal spray,suspension 1 spray intranasal BID congestion 05/09/20 [History Last Taken Unknown] garlic 2,000 mg capsule 2,000 mg PO DAILY 06/12/21 [History Last Taken Unknown] ipratropium 20 mcg-albuterol 100 mcg/actuation mist for inhalation 2 puff inhalation PRN PRN Shortness Of Breath #4 grams 06/16/21 [Rx Last Taken 06/19/21] albuterol sulfate 90 mcg/actuation aerosol inhaler (Ventolin HFA) 2 puff inhalation Q4H PRN shortness of breath or wheezing #18 grams 07/02/21 [Rx Last Taken Unknown] formoterol fumarate 20 mcg/2 mL solution for nebulization (Perforomist) 2 ml inhalation Q12H copd #120 mL 12/25/21 [Rx Last Taken Unknown] clopidogrel 75 mg tablet 75 mg PO QHS blood thinner #90 tabs 01/08/22 [Rx Last Taken Unknown] budesonide 0.5 mg/2 mL suspension for nebulization 0.5 mg (2 mL) inhalation Q12H copd #180 mL 03/25/22 [Rx Last Taken Unknown] tamsulosin 0.4 mg capsule 0.4 mg PO QHS prostate #90 caps 04/15/22 [Rx Last Taken Unknown] verapamil 240 mg tablet,extended release 240 mg PO QHS heart #90 tabs 04/28/22 [Rx Last Taken Unknown] ascorbic acid (vitamin C) 1,000 mg capsule 1 g PO DAILY 04/30/22 [History Last Taken Unknown] cholecalciferol (vitamin D3) 250 mcg (10,000 unit) capsule 250 mcg PO DAILY 04/30/22 [History Last Taken Unknown] glutamine 500 mg tablet (L-Glutamine) 500 mg PO BID 04/30/22 [History Last Taken Unknown] glutathione 500 mg capsule mg PO DAILY 04/30/22 [History Last Taken Unknown] lactobacillus combination no.9 4 billion cell capsule (Adult 50 Plus Probiotic) 4,000 mmu cells PO DAILY 04/30/22 [History Last Taken Unknown] magnesium 250 mg tablet 250 mg PO DAILY 04/30/22 [History Last Taken Unknown] multivitamin 2 tab PO DAILY 04/30/22 [History Last Taken Unknown] red yeast rice and coq10 PO 04/30/22 [History Last Taken Unknown] turmeric 400 mg capsule mg PO DAILY 04/30/22 [History Last Taken Unknown] vitamin B complex 1 cap PO DAILY 04/30/22 [History Last Taken Unknown] mirtazapine 15 mg tablet 15 mg PO QHS #30 tabs 06/24/22 [Rx Last Taken Unknown] Valarian root PO 07/06/22 [History Last Taken Unknown] Allergy/AdvReac Type Severity Reaction Status Date / Time aspirin Allergy Shortness Verified 07/06/22 13:20 of breath adhesive AdvReac Rash Verified 07/06/22 13:20 amoxicillin trihydrate AdvReac Other Verified 07/06/22 13:20 [From Augmentin] atorvastatin calcium AdvReac leg cramps Verified 07/06/22 13:20 [From Lipitor] isopropyl alcohol AdvReac Rash Verified 07/06/22 13:20 metoprolol succinate AdvReac Rash Verified 07/06/22 13:20 [From Toprol XL] naproxen [From Naprosyn] AdvReac Shortness Verified 07/06/22 13:20 of breath paroxetine HCl [From Paxil] AdvReac Unknown Verified 07/06/22 13:20 potassium clavulanate AdvReac tingling Verified 07/06/22 13:20 [From Augmentin] all over propoxyphene HCl AdvReac Unknown Verified 07/06/22 13:20 [From Darvon] sertraline HCl [From Zoloft] AdvReac Unknown Verified 07/06/22 13:20 simvastatin [From Zocor] AdvReac Unknown Verified 07/06/22 13:20 tiotropium bromide AdvReac Other Verified 07/06/22 13:20 [From Spiriva with HandiHaler] Family History Father Heart disease Hypertension High cholesterol CVA (cerebral vascular accident) Mother Dementia Surgical History History of coronary artery stent placement (06/07/20) History of endovascular stent graft for abdominal aortic aneurysm (AAA) (06/25/20) History of esophagogastroduodenoscopy (EGD) History of left heart catheterization (05/24/20) History of left inguinal hernia repair (06/2021) history of right eye surgery History of right inguinal hernia repair History of tonsillectomy History of tonsillectomy and adenoidectomy Hx of appendectomy Hx of bilateral cataract extraction Hx of colonoscopy Hx of sinus surgery Hx of thumb surgery Hx of umbilical hernia repair Status post laparoscopic colectomy Social History Smoking Status: Former smoker pack-years: 67 second hand exposure: No alcohol intake: current alcohol intake frequency: other Alcohol type: beer details: Previous nightly drinker. Stopped 2021 substance use type: does not use caffeine: Yes Type: coffee Number of servings: 4 what type of physical activity do you participate in: other details: pulmonary rehab frequency: 3-4 times per week ROS ROS ED Constitutional Constitutional ED: Denies chills or fever(s) Eyes Eyes: Denies change in vision or diplopia ENT ENT ED: Denies rhinorrhea or sore throat Cardiovascular Cardiovascular: Denies chest pain or palpitations Respiratory/Chest Respiratory/Chest: Reports cough; Denies dyspnea Gastrointestinal Gastrointestinal: Reports abdominal pain, bloating, nausea and vomiting; Denies diarrhea Genitourinary Genitourinary ED: Denies dysuria or hematuria Musculoskeletal Musculoskeletal: Denies back pain or neck pain Integumentary Denies abscess or rash Neurologic Neurologic: Denies headache(s), paresthesias or weakness Psychiatric Psychiatric: Denies anxiety or suicidal thoughts EXAM Physical Exam Const Vital Signs: 07/25/22 07:16 07/25/22 09:50 Temperature 96.2 F L Temperature Source Temporal Pulse Rate 95 87 Respiratory Rate 16 16 Blood Pressure 143/100 H 167/81 H Blood Pressure Mean 114 109 Pulse Ox 98 97 Oxygen Delivery Method Room Air Room Air Positive well nourished and well developed General Appearance ED: well developed and NAD HEENT Reports moist mucous membranes normocephalic and atraumatic Eyes PERRL and EOMs intact bilaterally Neck full ROM and supple Resp normal respiratory effort and clear to auscultation bilaterally Resp Narrative: Diminished throughout, symmetric. Conversive in full sentences. Cardio regular rate and regular rhythm Cardio Narrative: Faint heart sounds GI GI Narrative: Distended, soft. Diffusely tender worse throughout the right side negative Andrews. No pulsatile mass. Equal symmetric 2+ dorsalis pedis pulses. No guarding or rebound tenderness. Normal inspection no Tarun sign. Bowel sounds are present but hypoactive. Back/Spine no CVA tenderness General Back: other FROM Extremity normal to inspection General Extremety ED: Negative for edema, pulses abnormal or tenderness General Extremity: Negative for edema or pulses abnormal Neuro oriented x3, CN's II-XII intact bilaterally and no sensory deficits noted Sensorium / Orientation: awake and alert Motor Exam: strength 5/5 throughout Skin no rashes or lesions noted and no wounds MDM MDM MDM Narrative Medical decision making narrative: Labs and urinalysis noted. CT was obtained with oral contrast only, we held on the IV contrast after seeing his low EGFR. He was hydrated, symptoms were treated, still nauseated even after [address] consistent with a small bowel obstruction with movement of the oral contrast very short distance in the small bowel. My interpretation of the CT agrees with that of the radiologist. Discussed with Dr. Zarate, who advises an NG tube being placed which the patient is amenable to given our discussion about it, and she will consult and recommends admission to medicine with his other medical issues. Lab Data Attestation: I reviewed the patient's lab results. Labs: Laboratory Results - last 24 hr 07/25/22 07/25/22 07/25/22 07:22 07:22 09:50 WBC 16.8 H RBC 5.37 Hgb 15.1 Hct 46.9 MCV 87.3 MCH 28.1 MCHC 32.2 RDW Std Deviation 50.4 H RDW Coeff of Kylee 15.8 H Plt Count 435 MPV 10.4 Immature Gran % (Auto) 0.600 Neut % (Auto) 89.5 H Lymph % (Auto) 3.7 L [place] % (Auto) 4.8 Eos % (Auto) 0.8 Baso % (Auto) 0.6 Absolute Neuts (auto) 15.1 H Absolute Lymphs (auto) 0.62 L Nucleated RBC % 0 Sodium 139 Potassium 4.6 Chloride 106 Carbon Dioxide 27.0 Anion Gap 6 BUN 30 H Creatinine 1.79 H Estim Creat Clear Calc 30.36 Est GFR (MDRD) Af Amer 47 L Est GFR (MDRD) Non-Af 39 L BUN/Creatinine Ratio 16.8 Glucose 151 H Calcium 10.5 H Total Bilirubin 0.70 AST 28 ALT 28 Alkaline Phosphatase 97 Total Protein 7.5 Albumin 4.1 Globulin 3.4 Albumin/Globulin Ratio 1.2 Lipase 184 Urine Color Yellow Urine Clarity Clear Urine pH 6.5 Ur Specific [place] 1.015 Urine Protein 30 H Urine Glucose (UA) Normal Urine Ketones Negative Urine Occult Blood Negative Urine Nitrite Negative Urine Bilirubin Negative Urine Urobilinogen Normal Ur Leukocyte Esterase 25 H Urine RBC 0 SEEN Urine WBC 0-5 SEEN Ur Squamous Epith Cells 0 SEEN Urine Bacteria 0 SEEN Urine Mucus 0 SEEN Radiography Diagnostic Testing: Clinical Impression(s) from Imaging Studies Abdomen/Pelvis CT 07/25/22 07:19 IMPRESSION: Small bowel obstruction. Stable infrarenal abdominal aortic aneurysm measuring up to 5.5 cm in the transverse dimension. Enlarged prostate gland. Colonic diverticulosis. Moderate amount of stool throughout the colon. Emphysema. Atherosclerosis. Electronically Signed: Nuha Woodson MD at 10:13 EDT , Discharge Plan Triage Chief Complaint: Nausea/Vomiting ED Provider: Barney Eli Dx/Rx/DC Orders Clinical Impression: Complete small bowel obstruction Prescriptions: No Action fluticasone propionate 50 mcg/actuation spray,suspension 1 spray INTRANASAL BID Rx Instructions: administer into each nostril Valarian root PO multivitamin Tablet 2 tab PO DAILY magnesium 250 mg tablet 250 mg PO DAILY L-Glutamine 500 mg tablet 500 mg PO BID vitamin B complex Capsule 1 cap PO DAILY cholecalciferol (vitamin D3) 250 mcg (10,000 unit) capsule 250 mcg PO DAILY ascorbic acid (vitamin C) 1,000 mg capsule 1 g PO DAILY glutathione 500 mg capsule PO DAILY Adult 50 Plus Probiotic 4 billion cell capsule 4,000 mmu cells PO DAILY Rx Instructions: administer with a meal turmeric 400 mg capsule PO DAILY red yeast rice and coq10 PO Rx Instructions: 1 tab daily, 1215 mg garlic 2,000 mg Capsule 2,000 mg PO DAILY ipratropium-albuterol 20-100 mcg/actuation mist 2 puff INHALATION PRN PRN (Reason: Shortness Of Breath) Qty: 4 5RF albuterol sulfate [Ventolin HFA] 90 mcg/actuation HFA aerosol inhaler 2 puff inhalation Q4H PRN (Reason: shortness of breath or wheezing) Qty: 18 6RF formoterol fumarate [Perforomist] 20 mcg/2 mL solution for nebulization 2 ml inhalation Q12H Qty: 120 11RF clopidogrel 75 mg tablet 75 mg PO QHS Qty: 90 3RF Label Comments: STOPPING 3 DAYS PRIOR budesonide 0.5 mg/2 mL suspension for nebulization 0.5 mg INHALATION Q12H Qty: 180 11RF tamsulosin 0.4 mg capsule 0.4 mg PO QHS Qty: 90 1RF verapamil 240 mg tablet extended release 240 mg PO QHS Qty: 90 3RF mirtazapine 15 mg tablet 15 mg PO QHS Qty: 30 2RF Primary Care Provider: Krystyna Sanchez Referrals: Krystyna Sanchez MD [Primary Care Provider] - Disposition Disposition: Acute Care Hospital [facility]
[2022-07-25] MEDS: Ondansetron 4 MG/2 ML Vial IV (07:27)
[2022-07-25] MEDS: Morphine 4 MG/ML Syringe IV (07:27)
[2022-07-25 07:29] LABS: Absolute Lymphocyte Count 0.62 X10^3/uL (0.83-4.51); Absolute Neutrophil Count 15.1 X10^3/uL (2.0-7.7); Basophil% 0.6 % (0-1); Eosinophil# 0.14 X10^3/uL; Eosinophils% 0.8 % (0-5); Hematocrit 46.9 % (40-54); Hemoglobin 15.1 g/dL (13.0-16.5); Lymphocyte # 0.62 X10^3/ul (0.83-4.51); Lymphocyte % 3.7 % (19-41); Mean Corp Hgb Conc 32.2 g/dL (32-36); Mean Corpuscular Hgb 28.1 pg (27.0-32.0); Mean Corpuscular Volume 87.3 fL (80-94); Mean Platelet Vol. 10.4 fl (6.2-12.0); Monocyte% 4.8 % (0-10); NRBC Flagged by Analyzer 0 % (0-5); Neutrophil # 15.08 X10^3/uL (2.7-7.7); Neutrophil % 89.5 % (47-70); Platelet Count 435 K/mm3 (150-450); RBC Distribution Width CV 15.8 % (11.6-14.6); RBC Distribution Width SD 50.4 fl (35.1-43.9); Red Blood Count 5.37 M/mm3 (4.6-6.2); White Blood Count 16.8 K/mm3 (4.4-11.0)
[2022-07-25 07:49] LABS: ALB/GLOB Ratio 1.2 RATIO (0.9-2.4); AST(SGOT) 28 U/L (15-37); Alanine Aminotransfer ALT/SGPT 28 U/L (16-61); Albumin, Serum 4.1 g/dL (3.2-5.0); Alkaline Phosphatase 97 U/L (45-117); Anion Gap 6 (5-15); BUN 30 mg/dL (7-18); BUN/Creat Ratio 16.8 RATIO (10-20); Calcium,Total 10.5 mg/dL (8.5-10.1); Chloride 106 mmol/L (98-107); Creatinine, Serum 1.79 mg/dL (0.70-1.30); EST Glomerular Filtration Rate 39 mL/min (>60); Est Glom Filt Rate - Afr Amer 47 mL/min (>60); Estimated Creatinine Clearance 30.36 ml/min; Globulin 3.4 g/dL (2.2-4.2); Glucose 151 mg/dL (74-106); Lipase 184 U/L (73-393); Potassium 4.6 mmol/L (3.5-5.1); Protein, Total 7.5 g/dL (6.4-8.2); Sodium Level 139 mmol/L (136-145)
[2022-07-25] MEDS: 0.9% Normal Saline 1,000 ML 200 ML IV ×2 (09:10→13:24)
[2022-07-25 09:59] LABS: Bacteria 0 SEEN /hpf (None Seen); Mucous, Urine 0 SEEN /hpf (<or=2+); Red Blood Cells-Urine 0 SEEN /hpf (0-5); Squamous Epithelial Cells - UA 0 SEEN /hpf (0-5)
[2022-07-25 10:04] LABS: Color, Urine Yellow (Yellow); Glucose, Dipstick Normal (Normal); Ketone-Dipstick Negative (Negative); Leukocyte Esterase-Dipstick 25 /ul (Negative); Nitrite-Dipstick Negative (Negative); Occult Blood-Urine Negative /ul (Negative); Protein-Dipstick 30 mg/dl (Negative); Specific Gravity, Urine 1.015 (1.002-1.030); Urine Bilirubin Dipstick Negative (Negative); Urine Clarity Clear (Clear); Urine Urobilinogen Normal (Normal); Urine pH 6.5 (5.0 - 8.0)
[2022-07-25] MEDS: Metoclopramide 10 MG/2 ML Vial 5 MG IV (10:12)
[2022-07-25 10:13] LABS: White Blood Cells 0-5 SEEN /hpf (0-5)
[2022-07-25] MEDS: HYDROmorphone 1 MG/ML Syringe IV (10:13)
--- NOTE | 2022-07-25 12:00 | RAD_ITS ---
INDICATION: NG Insertion EXAMINATION/TECHNIQUE: X-RAY - XR Abdomen 1 View COMPARISON: CT of the abdomen and pelvis dated July 25, 2022 FINDINGS: BOWEL GAS PATTERN: There is an enteric tube in place terminating within the expected region of the gastric fundus. There are scattered air-fluid levels throughout mildly dilated loops of small bowel consistent with small bowel obstruction documented on recent CT. No bowel or stomach distention. FREE AIR: Not assessed on a single supine view. LOWER CHEST: No acute pathology. BONES AND SOFT TISSUES: There is a bifurcated stent in place RAD/Abdomen Single View (Portable) IMPRESSION: Enteric tube terminating within the expected region of the gastric fundus. Small bowel obstruction. Electronically Signed: Nuha Woodson MD at 12:18 EDT ,
[2022-07-25] MEDS: Oxymetazoline 0.05% 1 SPRAY SPRAY.BTL 2 SPRAY NASAL (12:05)
[2022-07-25] MEDS: Lidocaine 2% Jelly 1 APPLIC Tube 3 APPLIC TOPICAL (12:06)
--- NOTE | 2022-07-25 14:44 | CON.PCM.SX_ITS ---
Assessment & Plan Assessment/Plan (1) Complete small bowel obstruction: PLAN: Patient has passed small amount of flatus and has decreased abdominal pain, suspect that this is partial SBO I have reviewed CT scan - the contrast stops in the 3-4th part of duodenum, he is not on a PPI, will start this Continue NG tube decompression and IV hydration, hopefully no surgery will be required in this hospitalization HPI Consult Data Date of Consult: 07/25/22 HPI Narrative Reason for Consultation: asked to see patient by Dr. Robel Figueredo for bowel obstruction HPI Narrative: BETTE ASTORGA, is a 77 M who presents with nausea/emesis and abdominla pain. CT scan findings from [facility] ED reveals bowel obstruction. However, patient has noted passing flatus, just prior to my encounter. He states that he had epigastric abdominal discomfort (which has been chronic) that kept him up at 2:00 am this morning. He does note trouble sleeping, however, he felt that his abdomen didn't feel right. He noted several bouts of nausea/emesis with this. He denies blood in his emesis; he is not on a PPI regularly. He states that initially in the ED, his pain was 8-9 out of 10 on a scale of 1- 10 with 10 being the worst. Presently he states that he has no pain, unless he moves or if pressure applied to abdomen. He has had bowel obstruction in the past - about 1-2 years ago which resolved with NG tube decompression and IV hydration - over two days. He denies chronic NSAIDs use; he has taken lomotil in the past, but has not in a long time. He has a history of colorectal cancer, s/p resection in 2007. He had a colonoscopy [address] Laguna which was clear. He denies blood in his stools. He has had a remote right inguinal hernia repair, and a left inguinal hernia repair several years ago. He recently had AAA stent placed by Dr. Rodríguez. He notes a recent finding of elevated PSA, evaluation by Dr. Montaño is pending [facility] Medical History AAA (abdominal aortic aneurysm) Abdominal aortic aneurysm (AAA) greater than 5.5 cm in diameter in male Alcohol abuse Allergy to dog dander Anemia Arthritis Asthma Atherosclerotic heart disease of [place] coronary artery without angina pectoris Back pain BPH (benign prostatic hyperplasia) Bronchiectasis Cancer COPD (chronic obstructive pulmonary disease) Easy bruising Elevated PSA Epistaxis Essential (primary) hypertension Excessive bleeding Former smoker History of colon cancer History of ST elevation myocardial infarction (STEMI) (05/27/07) Hyperlipidemia Hypoxia Insomnia Iron deficiency Kidney stones Left inguinal hernia Low back pain Myocardial infarct 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) On home oxygen therapy Personal history of other malignant neoplasm of rectum, rectosigmoid junction, and anus Short bowel syndrome Sinus bradycardia 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 classification Tachycardia Therapeutic drug monitoring Wears glasses Home Medications fluticasone propionate 50 mcg/actuation nasal spray,suspension 1 spray intranasal BID congestion 05/09/20 [History Last Taken 07/24/22] garlic 2,000 mg capsule 2,000 mg PO DAILY 06/12/21 [History Last Taken 07/24/22] albuterol sulfate 90 mcg/actuation aerosol inhaler (Ventolin HFA) 2 puff inhalation Q4H PRN shortness of breath or wheezing #18 grams 07/02/21 [Rx Last Taken Unknown] formoterol fumarate 20 mcg/2 mL solution for nebulization (Perforomist) 2 ml inhalation Q12H copd #120 mL 12/25/21 [Rx Last Taken 07/23/22] clopidogrel 75 mg tablet 75 mg PO QHS blood thinner #90 tabs 01/08/22 [Rx Last Taken 07/24/22] budesonide 0.5 mg/2 mL suspension for nebulization 0.5 mg (2 mL) inhalation Q12H copd #180 mL 03/25/22 [Rx Last Taken 07/23/22] tamsulosin 0.4 mg capsule 0.4 mg PO QHS prostate #90 caps 04/15/22 [Rx Last Taken 07/24/22] verapamil 240 mg tablet,extended release 240 mg PO QHS heart #90 tabs 04/28/22 [Rx Last Taken 07/24/22] ascorbic acid (vitamin C) 1,000 mg capsule 1 g PO DAILY 04/30/22 [History Last Taken 07/24/22] cholecalciferol (vitamin D3) 250 mcg (10,000 unit) capsule 250 mcg PO DAILY 04/30/22 [History Last Taken 07/24/22] glutamine 500 mg tablet (L-Glutamine) 500 mg PO BID 04/30/22 [History Last Taken 07/24/22] glutathione 500 mg capsule 50 mg PO DAILY SUPPLEMENT 04/30/22 [History Last Taken 07/24/22] lactobacillus combination no.9 4 billion cell capsule (Adult 50 Plus Probiotic) 4,000 mmu cells PO DAILY 04/30/22 [History Last Taken 07/24/22] magnesium 250 mg tablet 250 mg PO DAILY 04/30/22 [History Last Taken 07/24/22] multivitamin 2 tab PO DAILY 04/30/22 [History Last Taken 07/24/22] turmeric 400 mg capsule 400 mg PO DAILY SUPPLEMENT 04/30/22 [History Last Taken 07/24/22] vitamin B complex 1 cap PO DAILY 04/30/22 [History Last Taken 07/24/22] mirtazapine 15 mg tablet 15 mg PO QHS #30 tabs 06/24/22 [Rx Last Taken 07/24/22] Allergy/AdvReac Type Severity Reaction Status Date / Time aspirin Allergy Shortness Verified 07/06/22 13:20 of breath adhesive AdvReac Rash Verified 07/06/22 13:20 amoxicillin trihydrate AdvReac Other Verified 07/06/22 13:20 [From Augmentin] atorvastatin calcium AdvReac leg cramps Verified 07/06/22 13:20 [From Lipitor] isopropyl alcohol AdvReac Rash Verified 07/06/22 13:20 metoprolol succinate AdvReac Rash Verified 07/06/22 13:20 [From Toprol XL] naproxen [From Naprosyn] AdvReac Shortness Verified 07/06/22 13:20 of breath paroxetine HCl [From Paxil] AdvReac Unknown Verified 07/06/22 13:20 potassium clavulanate AdvReac tingling Verified 07/06/22 13:20 [From Augmentin] all over propoxyphene HCl AdvReac Unknown Verified 07/06/22 13:20 [From Darvon] sertraline HCl [From Zoloft] AdvReac Unknown Verified 07/06/22 13:20 simvastatin [From Zocor] AdvReac Unknown Verified 07/06/22 13:20 tiotropium bromide AdvReac Other Verified 07/06/22 13:20 [From Spiriva with HandiHaler] Family History Father Heart disease Hypertension High cholesterol CVA (cerebral vascular accident) Mother Dementia Surgical History H/O hernia repair History of coronary artery stent placement (06/07/20) History of endovascular stent graft for abdominal aortic aneurysm (AAA) (06/25/20) History of esophagogastroduodenoscopy (EGD) History of left heart catheterization (05/24/20) History of left inguinal hernia repair (06/2021) history of right eye surgery History of right inguinal hernia repair History of tonsillectomy History of tonsillectomy and adenoidectomy Hx of appendectomy Hx of bilateral cataract extraction Hx of colonoscopy Hx of sinus surgery Hx of thumb surgery Hx of umbilical hernia repair Status post laparoscopic colectomy Social History Smoking Status: Former smoker pack-years: 67 second hand exposure: No alcohol intake: current alcohol intake frequency: other Alcohol type: beer details: Previous nightly drinker. Stopped 2021 substance use type: does not use caffeine: Yes Type: coffee Number of servings: 4 what type of physical activity do you participate in: other details: pulmonary rehab frequency: 3-4 times per week ROS Constitutional Constitutional: Denies fever(s) or weight gain Eyes Eyes: Denies loss of central vision ENT HEENT: Denies dysphagia or epistaxis Cardiovascular Cardiovascular: Denies chest pain at rest Respiratory/Chest Respiratory/Chest: Denies productive cough or shortness of breath at rest Gastrointestinal Gastrointestinal: Reports systems reviewed and no addt'l complaints, except as documented Genitourinary Genitourinary: Reports systems reviewed and no addt'l complaints, except as documented Musculoskeletal Musculoskeletal: Denies abnormal gait Integumentary Integumentary: Denies jaundice Neurologic Neurologic: Denies dizziness Physical Exam Const alert and oriented x3 General Appearance: cooperative HEENT normocephalic HEENT Narrative: has chronic post nasal drip Eyes conjunctivae normal Neck supple Resp normal respiratory effort Effort and Inspection: able to speak in complete sentences Cardio Rate: regular rate GI GI Narrative: soft, protuberant, tympanitic, tender to deep palpation (5 out of 10 pain) -no peritoneal signs Medical Records Data Attestation: I reviewed the patient's medical records Lab / Micro Data Attestation: I reviewed the patient's lab results. Result Diagrams: 07/25/22 07:22 07/25/22 07:22 Labs: Laboratory Results - last 24 hr 07/25/22 07:22: WBC 16.8 H, RBC 5.37, Hgb 15.1, Hct 46.9, MCV 87.3, MCH 28.1, MCHC 32.2, RDW Std Deviation 50.4 H, RDW Coeff of [place] 15.8 H, Plt Count 435, MPV 10.4, Immature Gran % (Auto) 0.600, Neut % (Auto) 89.5 H, Lymph % (Auto) 3.7 L, [place] % (Auto) 4.8, Eos % (Auto) 0.8, Baso % (Auto) 0.6, Absolute Neuts (auto) 15.1 H, Absolute Lymphs (auto) 0.62 L, Nucleated RBC % 0 07/25/22 07:22: Sodium 139, Potassium 4.6, Chloride 106, Carbon Dioxide 27.0, Anion Gap 6, BUN 30 H, Creatinine 1.79 H, Estim Creat Clear Calc 30.36, Est GFR (MDRD) Af Amer 47 L, Est GFR (MDRD) Non-Af 39 L, BUN/Creatinine Ratio 16.8, Glucose 151 H, Calcium 10.5 H, Total Bilirubin 0.70, AST 28, ALT 28, Alkaline Phosphatase 97, Total Protein 7.5, Albumin 4.1, Globulin 3.4, Albumin/Globulin Ratio 1.2, Lipase 184 07/25/22 09:50: Urine Color Yellow, Urine Clarity Clear, Urine pH 6.5, Ur Specific [place] 1.015, Urine Protein 30 H, Urine Glucose (UA) Normal, Urine Ketones Negative, Urine Occult Blood Negative, Urine Nitrite Negative, Urine Bilirubin Negative, Urine Urobilinogen Normal, Ur Leukocyte Esterase 25 H, Urine RBC 0 SEEN, Urine WBC 0-5 SEEN, Ur Squamous Epith Cells 0 SEEN, Urine Bacteria 0 SEEN, Urine Mucus 0 SEEN Radiology Impression Abdomen/Pelvis CT 07/25/22 07:19 IMPRESSION: Small bowel obstruction. Stable infrarenal abdominal aortic aneurysm measuring up to 5.5 cm in the transverse dimension. Enlarged prostate gland. Colonic diverticulosis. Moderate amount of stool throughout the colon. Emphysema. Atherosclerosis. Electronically Signed: Nuha Woodson MD at 10:13 EDT , KUB X-Ray 07/25/22 12:00 IMPRESSION: Enteric tube terminating within the expected region of the gastric fundus. Small bowel obstruction. Electronically Signed: Nuha Woodson MD at 12:18 EDT ,
[2022-07-25] MEDS: 0.9% Saline Lock 10 ML Syringe IV (16:19)
--- NOTE | 2022-07-25 16:54 | HP.PCM.HOS_ITS ---
HPI - General General Date of Admission: 07/25/22 Date of Service: 07/25/22 Chief Complaint: vomiting and Abd pain. HPI Narrative BETTE ASTORGA, is a 77 M who presents w/ distension and vomiting, and called EMS with abdominal pain as well. Pt was having normal bm till yesterday. States this presetnation is similar to one last year when he had a small bowel obstruction. He has hx of colon cancer in 2007 - last colonoscopy in 2020 per patient. He has no bleeding. The patient has felt markedly improved with NGT decompression and pain medicine administration. On admission he had a CT which showed small bowel obstruction with movement of the oral contrast very short distance in the small bowel. Labs with mild hyperglycemia, CKD as prior, elevated WBC to mid teens. He is not a smoker. [facility] Medical History (Updated 07/25/22 @ 17:[address] Nick Maguire MD) AAA (abdominal aortic aneurysm) Abdominal aortic aneurysm (AAA) greater than 5.5 cm in diameter in male Alcohol abuse Allergy to dog dander Anemia Arthritis Asthma Atherosclerotic heart disease of [place] coronary artery without angina pectoris Back pain BPH (benign prostatic hyperplasia) Bronchiectasis Cancer Complete small bowel obstruction COPD (chronic obstructive pulmonary disease) Easy bruising Elevated PSA Epistaxis Essential (primary) hypertension Excessive bleeding Former smoker History of colon cancer History of ST elevation myocardial infarction (STEMI) (05/27/07) Hyperlipidemia Hypoxia Insomnia Iron deficiency Kidney stones Left inguinal hernia Low back pain Myocardial infarct 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) On home oxygen therapy Personal history of other malignant neoplasm of rectum, rectosigmoid junction, and anus Short bowel syndrome Sinus bradycardia 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 classification Tachycardia Therapeutic drug monitoring Wears glasses Home Medications fluticasone propionate 50 mcg/actuation nasal spray,suspension 1 spray intranasal BID congestion 05/09/20 [History Last Taken 07/24/22] garlic 2,000 mg capsule 2,000 mg PO DAILY 06/12/21 [History Last Taken 07/24/22] albuterol sulfate 90 mcg/actuation aerosol inhaler (Ventolin HFA) 2 puff inhalation Q4H PRN shortness of breath or wheezing #18 grams 07/02/21 [Rx Last Taken Unknown] formoterol fumarate 20 mcg/2 mL solution for nebulization (Perforomist) 2 ml inhalation Q12H copd #120 mL 12/25/21 [Rx Last Taken 07/23/22] clopidogrel 75 mg tablet 75 mg PO QHS blood thinner #90 tabs 01/08/22 [Rx Last Taken 07/24/22] budesonide 0.5 mg/2 mL suspension for nebulization 0.5 mg (2 mL) inhalation Q12H copd #180 mL 03/25/22 [Rx Last Taken 07/23/22] tamsulosin 0.4 mg capsule 0.4 mg PO QHS prostate #90 caps 04/15/22 [Rx Last Taken 07/24/22] verapamil 240 mg tablet,extended release 240 mg PO QHS heart #90 tabs 04/28/22 [Rx Last Taken 07/24/22] ascorbic acid (vitamin C) 1,000 mg capsule 1 g PO DAILY 04/30/22 [History Last Taken 07/24/22] cholecalciferol (vitamin D3) 250 mcg (10,000 unit) capsule 250 mcg PO DAILY 04/30/22 [History Last Taken 07/24/22] glutamine 500 mg tablet (L-Glutamine) 500 mg PO BID 04/30/22 [History Last Taken 07/24/22] glutathione 500 mg capsule 50 mg PO DAILY SUPPLEMENT 04/30/22 [History Last Taken 07/24/22] lactobacillus combination no.9 4 billion cell capsule (Adult 50 Plus Probiotic) 4,000 mmu cells PO DAILY 04/30/22 [History Last Taken 07/24/22] magnesium 250 mg tablet 250 mg PO DAILY 04/30/22 [History Last Taken 07/24/22] multivitamin 2 tab PO DAILY 04/30/22 [History Last Taken 07/24/22] turmeric 400 mg capsule 400 mg PO DAILY SUPPLEMENT 04/30/22 [History Last Taken 07/24/22] vitamin B complex 1 cap PO DAILY 04/30/22 [History Last Taken 07/24/22] mirtazapine 15 mg tablet 15 mg PO QHS #30 tabs 06/24/22 [Rx Last Taken 07/24/22] Allergy/AdvReac Type Severity Reaction Status Date / Time aspirin Allergy Shortness Verified 07/06/22 13:20 of breath adhesive AdvReac Rash Verified 07/06/22 13:20 amoxicillin trihydrate AdvReac Other Verified 07/06/22 13:20 [From Augmentin] atorvastatin calcium AdvReac leg cramps Verified 07/06/22 13:20 [From Lipitor] isopropyl alcohol AdvReac Rash Verified 07/06/22 13:20 metoprolol succinate AdvReac Rash Verified 07/06/22 13:20 [From Toprol XL] naproxen [From Naprosyn] AdvReac Shortness Verified 07/06/22 13:20 of breath paroxetine HCl [From Paxil] AdvReac Unknown Verified 07/06/22 13:20 potassium clavulanate AdvReac tingling Verified 07/06/22 13:20 [From Augmentin] all over propoxyphene HCl AdvReac Unknown Verified 07/06/22 13:20 [From Darvon] sertraline HCl [From Zoloft] AdvReac Unknown Verified 07/06/22 13:20 simvastatin [From Zocor] AdvReac Unknown Verified 07/06/22 13:20 tiotropium bromide AdvReac Other Verified 07/06/22 13:20 [From Spiriva with HandiHaler] Family History Father Heart disease Hypertension High cholesterol CVA (cerebral vascular accident) Mother Dementia Surgical History H/O hernia repair History of coronary artery stent placement (06/07/20) History of endovascular stent graft for abdominal aortic aneurysm (AAA) (06/25/20) History of esophagogastroduodenoscopy (EGD) History of left heart catheterization (05/24/20) History of left inguinal hernia repair (06/2021) history of right eye surgery History of right inguinal hernia repair History of tonsillectomy History of tonsillectomy and adenoidectomy Hx of appendectomy Hx of bilateral cataract extraction Hx of colonoscopy Hx of sinus surgery Hx of thumb surgery Hx of umbilical hernia repair Status post laparoscopic colectomy Social History Smoking Status: Former smoker pack-years: 67 second hand exposure: No alcohol intake: current alcohol intake frequency: other Alcohol type: beer details: Previous nightly drinker. Stopped 2021 substance use type: does not use caffeine: Yes Type: coffee Number of servings: 4 what type of physical activity do you participate in: other details: pulmonary rehab frequency: 3-4 times per week Vital Signs Vital Signs Vital Signs: 07/25/22 07:16 07/25/22 09:50 07/25/22 12:40 Temperature 96.2 F L 98 F Temperature Source Temporal Temporal Pulse Rate 95 87 81 Respiratory Rate 16 16 14 Respiratory Effort Blood Pressure 143/100 H 167/81 H 143/78 H Blood Pressure Mean 114 109 99 Blood Pressure Source Blood Pressure Position Blood Pressure Location Pulse Ox 98 97 92 Oxygen Delivery Method Room Air Room Air Room Air 07/25/22 13:06 07/25/22 13:30 07/25/22 16:31 Temperature 97.9 F 99.2 F H Temperature Source Oral Oral Pulse Rate 83 90 85 Respiratory Rate 18 16 Respiratory Effort Normal Blood Pressure 155/85 H 132/65 H Blood Pressure Mean 108 87 Blood Pressure Source Monitor Manual Blood Pressure Position Semi-Fowlers Semi-Fowlers Blood Pressure Location Right Arm Right Arm Pulse Ox 93 93 Oxygen Delivery Method Room Air Room Air Room Air Weight Weight: 149 lb 14.4 oz Body Mass Index (BMI) 23.4 Physical Exam Const alert, no apparent distress and average body habitus HEENT normocephalic and head/scalp atraumatic Eyes PERRL Resp normal respiratory effort GI GI Narrative: no gaurding, mildly distended. NGT in place. No tenderness when i palpated. Auscultation: hyperactive bowel sounds Extremity no clubbing, cyanosis or edema Psych affect normal Results Medical Records Data Attestation: I reviewed the patient's medical records Lab / Micro Data Attestation: I reviewed the patient's lab results. Result Diagrams: 07/25/22 07:22 07/25/22 07:22 Labs: Laboratory Results - last 24 hr 07/25/22 07:22: WBC 16.8 H, RBC 5.37, Hgb 15.1, Hct 46.9, MCV 87.3, MCH 28.1, MCHC 32.2, RDW Std Deviation 50.4 H, RDW Coeff of [place] 15.8 H, Plt Count 435, MPV 10.4, Immature Gran % (Auto) 0.600, Neut % (Auto) 89.5 H, Lymph % (Auto) 3.7 L, [place] % (Auto) 4.8, Eos % (Auto) 0.8, Baso % (Auto) 0.6, Absolute Neuts (auto) 15.1 H, Absolute Lymphs (auto) 0.62 L, Nucleated RBC % 0 07/25/22 07:22: Sodium 139, Potassium 4.6, Chloride 106, Carbon Dioxide 27.0, Anion Gap 6, BUN 30 H, Creatinine 1.79 H, Estim Creat Clear Calc 30.36, Est GFR (MDRD) Af Amer 47 L, Est GFR (MDRD) Non-Af 39 L, BUN/Creatinine Ratio 16.8, Glucose 151 H, Calcium 10.5 H, Total Bilirubin 0.70, AST 28, ALT 28, Alkaline Phosphatase 97, Total Protein 7.5, Albumin 4.1, Globulin 3.4, Albumin/Globulin Ratio 1.2, Lipase 184 07/25/22 09:50: Urine Color Yellow, Urine Clarity Clear, Urine pH 6.5, Ur Specific [place] 1.015, Urine Protein 30 H, Urine Glucose (UA) Normal, Urine Ketones Negative, Urine Occult Blood Negative, Urine Nitrite Negative, Urine Bilirubin Negative, Urine Urobilinogen Normal, Ur Leukocyte Esterase 25 H, Urine RBC 0 SEEN, Urine WBC 0-5 SEEN, Ur Squamous Epith Cells 0 SEEN, Urine Bacteria 0 SEEN, Urine Mucus 0 SEEN Radiology Impression Abdomen/Pelvis CT 07/25/22 07:19 IMPRESSION: Small bowel obstruction. Stable infrarenal abdominal aortic aneurysm measuring up to 5.5 cm in the transverse dimension. Enlarged prostate gland. Colonic diverticulosis. Moderate amount of stool throughout the colon. Emphysema. Atherosclerosis. Electronically Signed: Nuha Woodson MD at 10:13 EDT , KUB X-Ray 07/25/22 12:00 IMPRESSION: Enteric tube terminating within the expected region of the gastric fundus. Small bowel obstruction. 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 Had recent BM in last 24 hours. - Continue NGT and NPO status, IV fluids at 100 per hour, avoid opiates where possible, Appreciate surgery recs. - continue inhalers from home - hold plavix - Hold nonessential meds/vitamins given NGT - BID heparin for Lovenox prophylaxis. - Zofran for nausea - PT - Incentive spirometry - Labs reviewed, trend CBC, BMP, replace electroylytes as needec - He is DNR CCA no intubation, no CPR reviewed at bedside. Charges/Coding Visit Charges Inpatient E&M: 39268 Init Hosp L2
[2022-07-25] MEDS: 0.9% Normal Saline 1,000 ML 100 ML IV (21:59)
[2022-07-25] MEDS: Heparin Injection (Vial) 5,000 UNIT/ML VIAL 5000 UNIT SC (22:03)
[2022-07-25] MEDS: Fluticasone 0.05% 1 SPRAY NASAL.SRY NASAL (22:06)
[2022-07-26 04:41] VITALS: BP 148/91; PULSE 87; RESP 18; TEMP 36.6; O2SAT 96
[2022-07-26 06:28] LABS: Absolute Lymphocyte Count 1.01 X10^3/uL (0.83-4.51); Basophil# 0.09 X10^3/uL; Basophil% 1.1 % (0-1); Eosinophil# 0.52 X10^3/uL; Eosinophils% 6.3 % (0-5); Hematocrit 38.5 % (40-54); Hemoglobin 11.9 g/dL (13.0-16.5); Lymphocyte # 1.01 X10^3/ul (0.83-4.51); Lymphocyte % 12.2 % (19-41); Mean Corp Hgb Conc 30.9 g/dL (32-36); Mean Corpuscular Hgb 27.9 pg (27.0-32.0); Mean Corpuscular Volume 90.4 fL (80-94); Mean Platelet Vol. 10.6 fl (6.2-12.0); Monocyte# 0.67 X10^3/uL; Monocyte% 8.1 % (0-10); NRBC Flagged by Analyzer 0 % (0-5); Neutrophil % 72.1 % (47-70); Platelet Count 339 K/mm3 (150-450); RBC Distribution Width CV 15.9 % (11.6-14.6); Red Blood Count 4.26 M/mm3 (4.6-6.2); White Blood Count 8.3 K/mm3 (4.4-11.0)
[2022-07-26 07:04] LABS: Magnesium 2.1 mg/dL (1.6-2.6); Phosphorus 2.9 mg/dL (2.5-4.9)
[2022-07-26 07:25] VITALS: PULSE 77; RESP 19
--- NOTE | 2022-07-26 07:38 | PCM.PN.HOSP ---
Reason for Visit Reason for Visit: Diagnoses Primary insomnia (07/25/22) Atherosclerotic heart disease of [place] coronary artery without angina pectoris (07/25/22) Abdominal aortic aneurysm, without rupture (07/25/22) Moderate persistent asthma, uncomplicated (07/25/22) Partial intestinal obstruction, unspecified as to cause (07/25/22) Complete intestinal obstruction, unspecified as to cause (07/25/22) Benign prostatic hyperplasia without lower urinary tract symptoms (07/25/22) Personal history of other malignant neoplasm of large intestine (07/25/22) Objective Data Objective Data Vital Signs: Vital Signs Temp Pulse Resp BP Pulse Ox O2 Del Method 98 F 87 18 148/91 H 96 Nasal Cannula 07/26/22 04:41 07/26/22 04:41 07/26/22 04:41 07/26/22 04:41 07/26/22 04:41 07/26/22 04:44 Oxygen Delivery Method Nasal Cannula Weight: 67.993 kg Body Mass Index (BMI) 23.4 Intake & Output: Intake and Output for Last 24 Hours 07/24/22 07/25/22 07/26/22 23:59 23:59 23:59 Intake Total 2270.00 / 2270.00 60 / 60 Output Total 775 / 775 300 / 300 Balance 1495.00 / 1495.00 -240 / -240 Lab / Micro Data Result Diagrams: 07/26/22 06:00 07/25/22 07:22 Labs: Laboratory Results - last 24 hr 07/25/22 07:22: Sodium 139, Potassium 4.6, Chloride 106, Carbon Dioxide 27.0, Anion Gap 6, BUN 30 H, Creatinine 1.79 H, Estim Creat Clear Calc 30.36, Est GFR (MDRD) Af Amer 47 L, Est GFR (MDRD) Non-Af 39 L, BUN/Creatinine Ratio 16.8, Glucose 151 H, Calcium 10.5 H, Total Bilirubin 0.70, AST 28, ALT 28, Alkaline Phosphatase 97, Total Protein 7.5, Albumin 4.1, Globulin 3.4, Albumin/Globulin Ratio 1.2, Lipase 184 07/25/22 09:50: Urine Color Yellow, Urine Clarity Clear, Urine pH 6.5, Ur Specific [place] 1.015, Urine Protein 30 H, Urine Glucose (UA) Normal, Urine Ketones Negative, Urine Occult Blood Negative, Urine Nitrite Negative, Urine Bilirubin Negative, Urine Urobilinogen Normal, Ur Leukocyte Esterase 25 H, Urine RBC 0 SEEN, Urine WBC 0-5 SEEN, Ur Squamous Epith Cells 0 SEEN, Urine Bacteria 0 SEEN, Urine Mucus 0 SEEN 07/26/22 06:00: WBC 8.3, RBC 4.26 L, Hgb 11.9 L, Hct 38.5 L, MCV 90.4, MCH 27.9, MCHC 30.9 L, RDW Std Deviation 52.0 H, RDW Coeff of Kylee 15.9 H, Plt Count 339, MPV 10.6, Immature Gran % (Auto) 0.200, Neut % (Auto) 72.1 H, Lymph % (Auto) 12.2 L, Stark % (Auto) 8.1, Eos % (Auto) 6.3 H, Baso % (Auto) 1.1 H, Absolute Neuts (auto) 6.0, Absolute Lymphs (auto) 1.01, Nucleated RBC % 0 07/26/22 06:00: Phosphorus 2.9, Magnesium 2.1 Radiography Diagnostic Testing: Radiology Impression Abdomen/Pelvis CT 07/25/22 07:19 IMPRESSION: Small bowel obstruction. Stable infrarenal abdominal aortic aneurysm measuring up to 5.5 cm in the transverse dimension. Enlarged prostate gland. Colonic diverticulosis. Moderate amount of stool throughout the colon. Emphysema. Atherosclerosis. Electronically Signed: Nuha Woodson MD at 10:13 EDT Reading Location ID and State: [facility] / [place] Tel , Service support , KUB X-Ray 07/25/22 12:00 IMPRESSION: Enteric tube terminating within the expected region of the gastric fundus. Small bowel obstruction. Electronically Signed: Nuha Woodson MD at 12:18 EDT ,
[2022-07-26] MEDS: Albuterol 2.5 MG/3 ML VIAL.NEB. INHALATION ×2 (07:41→13:02)
[2022-07-26] MEDS: Budesonide Respules 0.5 MG/2 ML AMPUL.NEB. INHALATION (07:41)
[2022-07-26 08:14] LABS: Anion Gap 3 (5-15); BUN 23 mg/dL (7-18); BUN/Creat Ratio 15.2 RATIO (10-20); Calcium,Total 8.7 mg/dL (8.5-10.1); Chloride 112 mmol/L (98-107); Creatinine, Serum 1.51 mg/dL (0.70-1.30); EST Glomerular Filtration Rate 48 mL/min (>60); Est Glom Filt Rate - Afr Amer 58 mL/min (>60); Estimated Creatinine Clearance 37.69 ml/min; Glucose 102 mg/dL (74-106); Sodium Level 142 mmol/L (136-145)
[2022-07-26 08:31] VITALS: O2SAT 95
[2022-07-26] MEDS: 0.9% Normal Saline 1,000 ML 100 ML IV (09:05)
[2022-07-26] MEDS: Fluticasone 0.05% 1 SPRAY NASAL.SRY NASAL (09:05)
[2022-07-26] MEDS: Heparin Injection (Vial) 5,000 UNIT/ML VIAL 5000 UNIT SC (09:05)
[2022-07-26 10:21] VITALS: BP 155/89; PULSE 90; RESP 18; TEMP 37; O2SAT 97
--- NOTE | 2022-07-26 10:43 | DCINST_ITS ---
Discharge Instructions Diet Discharge Diet: - (see below) Activity Discharge Activity: Return to Normal Activity Follow Up Care Test Results: Test results from this visit will be discussed in further detail at your follow- up appointment, if applicable. Discharge Plan Admission Admit Date/Time: 07/25/22 12:07 Attending Provider: Tiki Saldivar Primary Care Provider: Krystyna Sanchez Consulting Providers: Robel Figueredo Instructions Additional Instructions / Restrictions: Follow up with your PCP Advance diet slowly over the next 2-3 days Discharge Orders/Prescriptions Prescriptions: No Action fluticasone propionate 50 mcg/actuation spray,suspension 1 spray INTRANASAL BID Rx Instructions: administer into each nostril multivitamin Tablet 2 tab PO DAILY magnesium 250 mg tablet 250 mg PO DAILY L-Glutamine 500 mg tablet 500 mg PO BID vitamin B complex Capsule 1 cap PO DAILY cholecalciferol (vitamin D3) 250 mcg (10,000 unit) capsule 250 mcg PO DAILY ascorbic acid (vitamin C) 1,000 mg capsule 1 g PO DAILY glutathione 500 mg capsule 50 mg PO DAILY Adult 50 Plus Probiotic 4 billion cell capsule 4,000 mmu cells PO DAILY Rx Instructions: administer with a meal turmeric 400 mg capsule 400 mg PO DAILY garlic 2,000 mg Capsule 2,000 mg PO DAILY albuterol sulfate [Ventolin HFA] 90 mcg/actuation HFA aerosol inhaler 2 puff inhalation Q4H PRN (Reason: shortness of breath or wheezing) Qty: 18 6RF formoterol fumarate [Perforomist] 20 mcg/2 mL solution for nebulization 2 ml inhalation Q12H Qty: 120 11RF clopidogrel 75 mg tablet 75 mg PO QHS Qty: 90 3RF Label Comments: STOPPING 3 DAYS PRIOR budesonide 0.5 mg/2 mL suspension for nebulization 0.5 mg INHALATION Q12H Qty: 180 11RF tamsulosin 0.4 mg capsule 0.4 mg PO QHS Qty: 90 1RF verapamil 240 mg tablet extended release 240 mg PO QHS Qty: 90 3RF mirtazapine 15 mg tablet 15 mg PO QHS Qty: 30 2RF Referrals / Follow Up: Krystyna Sanchez MD [Primary Care Provider] - Disposition Discharge Orders: Discharge Patient (Routine); Ordered 07/26/22 Ordered By: Dr. Marcela Zarate
--- NOTE | 2022-07-26 10:43 | PN.SURG_ITS ---
Subjective Subjective patient feeling much improved denies abdominal pain passing flatus and has had bowel movements Objective Data Objective Data Vital Signs: Vital Signs Temp Pulse Resp BP Pulse Ox O2 Del Method O2 Flow Rate 98.6 F 90 18 155/89 H 97 Room Air 3 07/26/22 10:21 07/26/22 10:21 07/26/22 10:21 07/26/22 10:21 07/26/22 10:21 07/26/22 10:21 07/26/22 08:31 Oxygen Flow Rate (L/min) 3 Oxygen Delivery Method Room Air Weight: 67.993 kg Body Mass Index (BMI) 23.4 Intake & Output: Intake and Output for Last 24 Hours 07/24/22 07/25/22 07/26/22 23:59 23:59 23:59 Intake Total 2270.00 / 2270.00 1195 / 1195 Output Total 775 / 775 300 / 300 Balance 1495.00 / 1495.00 895 / 895 Lab / Micro Data Attestation: I reviewed the patient's lab results. Result Diagrams: 07/26/22 06:00 07/26/22 06:00 Labs: Laboratory Results - last 24 hr 07/26/22 06:00: WBC 8.3, RBC 4.26 L, Hgb 11.9 L, Hct 38.5 L, MCV 90.4, MCH 27.9, MCHC 30.9 L, RDW Std Deviation 52.0 H, RDW Coeff of Kylee 15.9 H, Plt Count 339, MPV 10.6, Immature Gran % (Auto) 0.200, Neut % (Auto) 72.1 H, Lymph % (Auto) 12.2 L, [place] % (Auto) 8.1, Eos % (Auto) 6.3 H, Baso % (Auto) 1.1 H, Absolute Neuts (auto) 6.0, Absolute Lymphs (auto) 1.01, Nucleated RBC % 0 07/26/22 06:00: Phosphorus 2.9, Magnesium 2.1 07/26/22 06:00: Sodium 142, Potassium 4.0, Chloride 112 H, Carbon Dioxide 27.0, Anion Gap 3 L, BUN 23 H, Creatinine 1.51 H, Estim Creat Clear Calc 37.69, Est GFR (MDRD) Af Amer 58 L, Est GFR (MDRD) Non-Af 48 L, BUN/Creatinine Ratio 15.2, Glucose 102, Calcium 8.7 Radiography Diagnostic Testing: Radiology Impression KUB X-Ray 07/25/22 12:00 IMPRESSION: Enteric tube terminating within the expected region of the gastric fundus. Small bowel obstruction. Electronically Signed: Nuha Woodson MD at 12:18 EDT , Physical Exam Const alert and oriented x3 General Appearance: cooperative Neck supple Resp normal respiratory effort Effort and Inspection: able to speak in complete sentences GI GI Narrative: abdomen is soft and benign Assessment & Plan Assessment/Plan (1) Partial bowel obstruction: PLAN: SBO has resolved, will start on full liquids patient can slowly advance diet at home patient to follow up with his PCP for his hypertension and increasing serum creatinine d/c NG tube d/c to home PLAN: Plan see above
[2022-07-26 11:32] VITALS: BP 143/81; PULSE 103; RESP 18; TEMP 36.9; O2SAT 94
--- NOTE | 2022-07-26 11:32 | NURSING ---
Pulled NG tube from pt, tolerated well and will now start on his liquid diet.
--- NOTE | 2022-07-26 12:53 | DS.PCM_ITS ---
Providers Date of Admission: 07/25/22 Date of Discharge: 07/26/22 Primary Care Physician: Dr. Krystyna Sanchez MD Reason For Visit: SBO Diagnosis Discharge Diagnosis (1) Partial bowel obstruction: Status: Acute Code(s): K56.600 - Partial intestinal obstruction, unspecified as to cause Medications at Discharge Home Medications fluticasone propionate 50 mcg/actuation nasal spray,suspension 1 spray intranasal BID congestion 05/09/20 garlic 2,000 mg capsule 2,000 mg PO DAILY 06/12/21 albuterol sulfate 90 mcg/actuation aerosol inhaler (Ventolin HFA) 2 puff inhalation Q4H PRN shortness of breath or wheezing #18 grams 07/02/21 formoterol fumarate 20 mcg/2 mL solution for nebulization (Perforomist) 2 ml inhalation Q12H copd #120 mL 12/25/21 clopidogrel 75 mg tablet 75 mg PO QHS blood thinner #90 tabs 01/08/22 budesonide 0.5 mg/2 mL suspension for nebulization 0.5 mg (2 mL) inhalation Q12H copd #180 mL 03/25/22 tamsulosin 0.4 mg capsule 0.4 mg PO QHS prostate #90 caps 04/15/22 verapamil 240 mg tablet,extended release 240 mg PO QHS heart #90 tabs 04/28/22 ascorbic acid (vitamin C) 1,000 mg capsule 1 g PO DAILY 04/30/22 cholecalciferol (vitamin D3) 250 mcg (10,000 unit) capsule 250 mcg PO DAILY 04/30/22 glutamine 500 mg tablet (L-Glutamine) 500 mg PO BID 04/30/22 glutathione 500 mg capsule 50 mg PO DAILY SUPPLEMENT 04/30/22 lactobacillus combination no.9 4 billion cell capsule (Adult 50 Plus Probiotic) 4,000 mmu cells PO DAILY 04/30/22 magnesium 250 mg tablet 250 mg PO DAILY 04/30/22 multivitamin 2 tab PO DAILY 04/30/22 turmeric 400 mg capsule 400 mg PO DAILY SUPPLEMENT 04/30/22 vitamin B complex 1 cap PO DAILY 04/30/22 mirtazapine 15 mg tablet 15 mg PO QHS #30 tabs 06/24/22 Hospital Course Procedures - (NG tube placement) Summary of Care Provided Minutes Spent on Discharge: 25 Hospital Course: Per HPI: 77 M who presents w/ distension and vomiting, and called EMS with abdominal pain as well. Pt was having normal bm till yesterday. States this presetnation is similar to one last year when he had a small bowel obstruction. He has hx of colon cancer in 2007 - last colonoscopy in 2020 per patient. He has no bleeding. The patient has felt markedly improved with NGT decompression and pain medicine administration. On admission he had a CT which showed small bowel obstruction with movement of the oral contrast very short distance in the small bowel. Labs with mild hyperglycemia, CKD as prior, elevated WBC to mid teens. Interim hx: NG tube placed and pt was made NPO and started on fluids. Surgery evaluated and endorsed it was a partial small bowel obstruction and did not feel he needed surigcal intervention. On day of d/c he was having BMs and passing gas with no nausea or abdominal pain. Surgery d/c'd NG tube and advised d/c on liquid diet and advance as tolerated at home. Pt had no further complaints. Physical Exam Narrative General: Alert, oriented, no apparent distress HEENT: Atraumatic, normocephalic Eyes: Anicteric, normal conjunctiva, extraocular movements grossly intact Neck: Supple Respiratory: Clear to auscultation bilaterally, normal respiratory effort Cardiovascular: Regular rate and rhythm GI: Soft, nontender, nondistended Extremities: No edema Musculoskeletal: Moving all extremities Neuro: No overt focal neurological deficits Skin: No rashes appreciated Psych: Cooperative Weight / BMI Weight Weight: 67.993 kg Body Mass Index (BMI) 23.4 ABG / Lab / Microbiology Data Result Diagrams: 07/26/22 06:00 07/26/22 06:00 Laboratory: Laboratory Results - last 24 hr 07/26/22 06:00: WBC 8.3, RBC 4.26 L, Hgb 11.9 L, Hct 38.5 L, MCV 90.4, MCH 27.9, MCHC 30.9 L, RDW Std Deviation 52.0 H, RDW Coeff of Kylee 15.9 H, Plt Count 339, MPV 10.6, Immature Gran % (Auto) 0.200, Neut % (Auto) 72.1 H, Lymph % (Auto) 12.2 L, [place] % (Auto) 8.1, Eos % (Auto) 6.3 H, Baso % (Auto) 1.1 H, Absolute Neuts (auto) 6.0, Absolute Lymphs (auto) 1.01, Nucleated RBC % 0 07/26/22 06:00: Phosphorus 2.9, Magnesium 2.1 07/26/22 06:00: Sodium 142, Potassium 4.0, Chloride 112 H, Carbon Dioxide 27.0, Anion Gap 3 L, BUN 23 H, Creatinine 1.51 H, Estim Creat Clear Calc 37.69, Est GFR (MDRD) Af Amer 58 L, Est GFR (MDRD) Non-Af 48 L, BUN/Creatinine Ratio 15.2, Glucose 102, Calcium 8.7 D/C Instructions Discharge Diet: - (see below) Meaningful Use Info Meaningful Use Diagnoses (Choose all that apply): None applicable Discharge Plan Admission Admit Date/Time: 07/25/22 12:07 Primary Reason for Your Visit: Partial small bowel obstruction Attending Provider: Tiki Saldivar Primary Care Provider: Krystyna Sanchez Consulting Providers: Robel Figueredo Instructions Patient Instructions: Bowel Obstruction Additional Instructions / Restrictions: Follow up with your PCP Advance diet slowly over the next 2-3 days Discharge Orders/Prescriptions Prescriptions: Continued fluticasone propionate 50 mcg/actuation spray,suspension 1 spray INTRANASAL BID Rx Instructions: administer into each nostril multivitamin Tablet 2 tab PO DAILY magnesium 250 mg tablet 250 mg PO DAILY L-Glutamine 500 mg tablet 500 mg PO BID vitamin B complex Capsule 1 cap PO DAILY cholecalciferol (vitamin D3) 250 mcg (10,000 unit) capsule 250 mcg PO DAILY ascorbic acid (vitamin C) 1,000 mg capsule 1 g PO DAILY glutathione 500 mg capsule 50 mg PO DAILY Adult 50 Plus Probiotic 4 billion cell capsule 4,000 mmu cells PO DAILY Rx Instructions: administer with a meal turmeric 400 mg capsule 400 mg PO DAILY garlic 2,000 mg Capsule 2,000 mg PO DAILY albuterol sulfate [Ventolin HFA] 90 mcg/actuation HFA aerosol inhaler 2 puff inhalation Q4H PRN (Reason: shortness of breath or wheezing) Qty: 18 6RF formoterol fumarate [Perforomist] 20 mcg/2 mL solution for nebulization 2 ml inhalation Q12H Qty: 120 11RF clopidogrel 75 mg tablet 75 mg PO QHS Qty: 90 3RF Label Comments: STOPPING 3 DAYS PRIOR budesonide 0.5 mg/2 mL suspension for nebulization 0.5 mg INHALATION Q12H Qty: 180 11RF tamsulosin 0.4 mg capsule 0.4 mg PO QHS Qty: 90 1RF verapamil 240 mg tablet extended release 240 mg PO QHS Qty: 90 3RF mirtazapine 15 mg tablet 15 mg PO QHS Qty: 30 2RF Referrals / Follow Up: Krystyna Sanchez MD [Primary Care Provider] - Within 1 Week Disposition Disposition (needs filled in before D/C Order can be placed): Home, Self Care Charges/Coding Visit Charges Inpatient E&M: 53381 Disch Hosp
[2022-07-26 13:17] VITALS: PULSE 82; RESP 20
== END 2022-07-26 13:33 | disposition home or self-care (01) | DRG 390 ==
LOC: ED 10:39 → MS3 07-26 06:52
PROVIDERS: Hospitalist; Admitting Provider Internal Medicine; Emergency Provider Emergency Medicine; PCP Internal Medicine; Visit Provider Internal Medicine
DX: K56.600 Partial intestinal obstruction, unspecified as to cause (principal); E78.5 Hyperlipidemia, unspecified; J44.9 Chronic obstructive pulmonary disease, unspecified; I71.43 Infrarenal abdominal aortic aneurysm, without rupture; I25.10 Atherosclerotic heart disease of native coronary artery without angina pectoris; J45.40 Moderate persistent asthma, uncomplicated; N18.2 Chronic kidney disease, stage 2 (mild); I12.9 Hypertensive chronic kidney disease with stage 1 through stage 4 chronic kidney disease, or unspecified chronic kidney disease; Z82.3 Family history of stroke; R73.9 Hyperglycemia, unspecified; F51.01 Primary insomnia; Z87.891 Personal history of nicotine dependence; N40.0 Benign prostatic hyperplasia without lower urinary tract symptoms; Z66 Do not resuscitate; Z95.5 Presence of coronary angioplasty implant and graft; G47.00 Insomnia, unspecified; Z79.51 Long term (current) use of inhaled steroids; Z79.02 Long term (current) use of antithrombotics/antiplatelets; Z85.038 Personal history of other malignant neoplasm of large intestine
CPT/HCPCS: 36415; 74018; 74176; 80048; 80053; 81001; 83690; 83735; 84100; 85025; 94640; 94668; 97161; 99252; 99285; J7030; A4216; G0463; J2405

== ENCOUNTER 2022-07-31 16:15 | Emergency (ER) | payer MEDICARE, OTHER, SELFPAY ==
[2022-07-31 16:16] VITALS: BP 179/97; PULSE 105; RESP 16; TEMP 36.6; O2SAT 98; BMI 23.6
[2022-07-31] MEDS: Diphth,Pertuss(Acell),Tet Vac 0.5 ML Vial IM (16:32)
--- NOTE | 2022-07-31 16:54 | EX.ED.GENINJ ---
HPI <FLORA Melo - Last Filed: 07/31/22 17:23> History of Present Illness Chief Complaint: Laceration Narrative Narrative: Patient presenting today with a laceration on his R index finger that he got when trying to open a can of beans to make chili. He is unsure the last time he had a tetanus shot. Patient is on Plavix. PFSH <FLORA Melo - Last Filed: 07/31/22 17:23> [facility] Medical History AAA (abdominal aortic aneurysm) Abdominal aortic aneurysm (AAA) greater than 5.5 cm in diameter in male Alcohol abuse Allergy to dog dander Anemia Arthritis Asthma Atherosclerotic heart disease of [place] coronary artery without angina pectoris Back pain BPH (benign prostatic hyperplasia) Bronchiectasis Cancer Complete small bowel obstruction COPD (chronic obstructive pulmonary disease) Easy bruising Elevated PSA Epistaxis Essential (primary) hypertension Excessive bleeding Former smoker History of colon cancer History of ST elevation myocardial infarction (STEMI) (05/27/07) Hyperlipidemia Hypoxia Insomnia Iron deficiency Kidney stones Left inguinal hernia Low back pain Myocardial infarct 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) On home oxygen therapy Personal history of other malignant neoplasm of rectum, rectosigmoid junction, and anus Short bowel syndrome Sinus bradycardia 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 classification Tachycardia Therapeutic drug monitoring Wears glasses Home Medications fluticasone propionate 50 mcg/actuation nasal spray,suspension 1 spray intranasal BID congestion 05/09/20 [History Last Taken 07/24/22] garlic 2,000 mg capsule 2,000 mg PO DAILY 06/12/21 [History Last Taken 07/24/22] albuterol sulfate 90 mcg/actuation aerosol inhaler (Ventolin HFA) 2 puff inhalation Q4H PRN shortness of breath or wheezing #18 grams 07/02/21 [Rx Last Taken Unknown] formoterol fumarate 20 mcg/2 mL solution for nebulization (Perforomist) 2 ml inhalation Q12H copd #120 mL 12/25/21 [Rx Last Taken 07/23/22] clopidogrel 75 mg tablet 75 mg PO QHS blood thinner #90 tabs 01/08/22 [Rx Last Taken 07/24/22] budesonide 0.5 mg/2 mL suspension for nebulization 0.5 mg (2 mL) inhalation Q12H copd #180 mL 03/25/22 [Rx Last Taken 07/23/22] tamsulosin 0.4 mg capsule 0.4 mg PO QHS prostate #90 caps 04/15/22 [Rx Last Taken 07/24/22] verapamil 240 mg tablet,extended release 240 mg PO QHS heart #90 tabs 04/28/22 [Rx Last Taken 07/24/22] ascorbic acid (vitamin C) 1,000 mg capsule 1 g PO DAILY 04/30/22 [History Last Taken 07/24/22] cholecalciferol (vitamin D3) 250 mcg (10,000 unit) capsule 250 mcg PO DAILY 04/30/22 [History Last Taken 07/24/22] glutamine 500 mg tablet (L-Glutamine) 500 mg PO BID 04/30/22 [History Last Taken 07/24/22] glutathione 500 mg capsule 50 mg PO DAILY SUPPLEMENT 04/30/22 [History Last Taken 07/24/22] lactobacillus combination no.9 4 billion cell capsule (Adult 50 Plus Probiotic) 4,000 mmu cells PO DAILY 04/30/22 [History Last Taken 07/24/22] magnesium 250 mg tablet 250 mg PO DAILY 04/30/22 [History Last Taken 07/24/22] multivitamin 2 tab PO DAILY 04/30/22 [History Last Taken 07/24/22] turmeric 400 mg capsule 400 mg PO DAILY SUPPLEMENT 04/30/22 [History Last Taken 07/24/22] vitamin B complex 1 cap PO DAILY 04/30/22 [History Last Taken 07/24/22] mirtazapine 15 mg tablet 15 mg PO QHS #30 tabs 06/24/22 [Rx Last Taken 07/24/22] Allergy/AdvReac Type Severity Reaction Status Date / Time aspirin Allergy Shortness Verified 07/31/22 16:18 of breath adhesive AdvReac Rash Verified 07/31/22 16:18 amoxicillin trihydrate AdvReac Other Verified 07/31/22 16:18 [From Augmentin] atorvastatin calcium AdvReac leg cramps Verified 07/31/22 16:18 [From Lipitor] isopropyl alcohol AdvReac Rash Verified 07/31/22 16:18 metoprolol succinate AdvReac Rash Verified 07/31/22 16:18 [From Toprol XL] naproxen [From Naprosyn] AdvReac Shortness Verified 07/31/22 16:18 of breath paroxetine HCl [From Paxil] AdvReac Unknown Verified 07/31/22 16:18 potassium clavulanate AdvReac tingling Verified 07/31/22 16:18 [From Augmentin] all over propoxyphene HCl AdvReac Unknown Verified 07/31/22 16:18 [From Darvon] sertraline HCl [From Zoloft] AdvReac Unknown Verified 07/31/22 16:18 simvastatin [From Zocor] AdvReac Unknown Verified 07/31/22 16:18 tiotropium bromide AdvReac Other Verified 07/31/22 16:18 [From Spiriva with HandiHaler] Family History Father Heart disease Hypertension High cholesterol CVA (cerebral vascular accident) Mother Dementia Surgical History H/O hernia repair History of coronary artery stent placement (06/07/20) History of endovascular stent graft for abdominal aortic aneurysm (AAA) (06/25/20) History of esophagogastroduodenoscopy (EGD) History of left heart catheterization (05/24/20) History of left inguinal hernia repair (06/2021) history of right eye surgery History of right inguinal hernia repair History of tonsillectomy History of tonsillectomy and adenoidectomy Hx of appendectomy Hx of bilateral cataract extraction Hx of colonoscopy Hx of sinus surgery Hx of thumb surgery Hx of umbilical hernia repair Status post laparoscopic colectomy Social History Smoking Status: Former smoker pack-years: 67 second hand exposure: No alcohol intake: current alcohol intake frequency: other Alcohol type: beer details: Previous nightly drinker. Stopped 2021 substance use type: does not use caffeine: Yes Type: coffee Number of servings: 4 what type of physical activity do you participate in: other details: pulmonary rehab frequency: 3-4 times per week ROS <FLORA Melo - Last Filed: 07/31/22 17:23> ROS ED Constitutional Constitutional ED: Denies chills or fever(s) Cardiovascular Cardiovascular: Denies chest pain or palpitations Respiratory/Chest Respiratory/Chest: Denies cough or dyspnea Gastrointestinal Gastrointestinal: Denies abdominal pain, nausea or vomiting Musculoskeletal Musculoskeletal: Denies arthralgias or myalgias Integumentary Reports laceration Neurologic Neurologic: Denies weakness Psychiatric Psychiatric: Denies anxiety, depression, suicidal ideation or suicidal thoughts Hematologic/Lymphatic Hematologic/Lymphatic: Reports easy bleeding EXAM <FLORA Melo - Last Filed: 07/31/22 17:23> Physical Exam Const Vital Signs: 07/31/22 16:16 07/31/22 17:03 Temperature 97.8 F 97.8 F Temperature Source Temporal Pulse Rate 105 H 78 Respiratory Rate 16 16 Blood Pressure 179/97 H 126/78 H Blood Pressure Mean 124 Pulse Ox 98 99 Oxygen Delivery Method Room Air Positive well nourished, well developed and no apparent distress General Appearance ED: well developed HEENT Reports normocephalic and head/scalp atraumatic Mouth ED: Yes moist mucous membranes normal Eyes PERRL and EOMs intact bilaterally Neck full ROM and supple Chest Wall inspection of chest normal Resp normal respiratory effort and clear to auscultation bilaterally Cardio regular rate and regular rhythm GI soft to palpation, non-tender, non-distended and no masses Back/Spine normal ROM and normal to inspection Extremity normal to inspection and full ROM Extremity Narrative: Small linear and superficial laceration to right index finger, radial pulses 2+ and equal bilaterally, good capillary refill, sensation intact Neuro oriented x3, CN's II-XII intact bilaterally, moves all extremities, no focal motor deficits and no sensory deficits noted Sensorium / Orientation: awake and alert Psych mental status grossly normal and thought process normal Skin no rashes or lesions noted and no wounds Skin Narrative: Small 2cm linear superficial laceration to patient's right index finger on the volar surface. <Dr. Nanette Jose MD - Last Filed: 07/31/22 20:23> Physical Exam Const Vital Signs: 07/31/22 16:16 07/31/22 17:03 Temperature 97.8 F 97.8 F Temperature Source Temporal Pulse Rate 105 H 78 Respiratory Rate 16 16 Blood Pressure 179/97 H 126/78 H Blood Pressure Mean 124 Pulse Ox 98 99 Oxygen Delivery Method Room Air MDM <FLORA Melo - Last Filed: 07/31/22 17:23> MDM MDM Narrative Medical decision making narrative: Patient presenting today with a superficial linear 2 cm laceration to his right index finger that he got while trying to open a can of beans. Bleeding was controlled upon arrival. The area was cleaned with chlorhexidine, skin glue was applied, and a bandage was applied. Tetanus was updated. Patient discharged home in stable condition and is comfortable with plan. <Dr. Nanette Jose MD - Last Filed: 07/31/22 20:23> [facility] Treatment and Re-Evaluation Narrative: Patient seen and evaluated with LETY. I personally interviewed and examined the patient. I was involved in all aspects of patient's orders, interpretation of results, and treatment. Patient presents with a superficial laceration to his right index finger. He got this while trying to open a can. He is right-hand dominant. He has good range of motion and denies any paresthesias. Patient sitting upright in bed no acute distress. Head neck examination unremarkable. Heart regular rate and rhythm. Lung sounds are clear. Right upper extremity examination reveals a superficial laceration along the radial aspect of the distal right index finger measuring approximate 2 cm. It has been cleansed and stable Dermabond. He has good cap refill and sensation distally. He has full range of motion of the digit without difficulty. Tetanus update has been provided. Wound care has been discussed. Patient will be discharged to home. Discharge Plan Triage Chief Complaint: Laceration ED Midlevel Provider: Janine Parson ED Provider: Nanette Jose Dx/Rx/DC Orders Clinical Impression: Laceration Instructions: ED Laceration: All Closures Prescriptions: No Action fluticasone propionate 50 mcg/actuation spray,suspension 1 spray INTRANASAL BID Rx Instructions: administer into each nostril multivitamin Tablet 2 tab PO DAILY magnesium 250 mg tablet 250 mg PO DAILY L-Glutamine 500 mg tablet 500 mg PO BID vitamin B complex Capsule 1 cap PO DAILY cholecalciferol (vitamin D3) 250 mcg (10,000 unit) capsule 250 mcg PO DAILY ascorbic acid (vitamin C) 1,000 mg capsule 1 g PO DAILY glutathione 500 mg capsule 50 mg PO DAILY Adult 50 Plus Probiotic 4 billion cell capsule 4,000 mmu cells PO DAILY Rx Instructions: administer with a meal turmeric 400 mg capsule 400 mg PO DAILY garlic 2,000 mg Capsule 2,000 mg PO DAILY albuterol sulfate [Ventolin HFA] 90 mcg/actuation HFA aerosol inhaler 2 puff inhalation Q4H PRN (Reason: shortness of breath or wheezing) Qty: 18 6RF formoterol fumarate [Perforomist] 20 mcg/2 mL solution for nebulization 2 ml inhalation Q12H Qty: 120 11RF clopidogrel 75 mg tablet 75 mg PO QHS Qty: 90 3RF Label Comments: STOPPING 3 DAYS PRIOR budesonide 0.5 mg/2 mL suspension for nebulization 0.5 mg INHALATION Q12H Qty: 180 11RF tamsulosin 0.4 mg capsule 0.4 mg PO QHS Qty: 90 1RF verapamil 240 mg tablet extended release 240 mg PO QHS Qty: 90 3RF mirtazapine 15 mg tablet 15 mg PO QHS Qty: 30 2RF Primary Care Provider: Krystyna Sanchez Referrals: Krystyna Sanchez MD [Primary Care Provider] - As Needed Activity Restrictions/Additional Instructions: The skin glue will dissolve itself, return for any signs of infection. Disposition Disposition: Home, Self Care Discharge Date/Time: 07/31/22 17:04
[2022-07-31 17:03] VITALS: BP 126/78; PULSE 78; RESP 16; TEMP 36.6; O2SAT 99
== END 2022-07-31 17:04 | disposition home or self-care (01) ==
PROVIDERS: Emergency Provider Emergency Medicine; PCP Internal Medicine; Visit Provider Emergency Medicine
DX: S61.210A Laceration without foreign body of right index finger without damage to nail, initial encounter (principal); J44.9 Chronic obstructive pulmonary disease, unspecified; I25.10 Atherosclerotic heart disease of native coronary artery without angina pectoris; Z87.891 Personal history of nicotine dependence; E78.5 Hyperlipidemia, unspecified; I10 Essential (primary) hypertension; Z79.02 Long term (current) use of antithrombotics/antiplatelets; J45.909 Unspecified asthma, uncomplicated; Z79.899 Other long term (current) drug therapy; Z79.51 Long term (current) use of inhaled steroids; N40.0 Benign prostatic hyperplasia without lower urinary tract symptoms; Z95.5 Presence of coronary angioplasty implant and graft; Z23 Encounter for immunization
CPT/HCPCS: 12001; 90471; 90715; 99282

== ENCOUNTER 2022-08-08 14:41 | Emergency (ER) | payer MEDICARE, OTHER, SELFPAY ==
[2022-08-08 14:41] VITALS: BP 158/124; PULSE 122; RESP 24; TEMP 37.3; O2SAT 97; BMI 23.2
--- NOTE | 2022-08-08 15:10 | EX.ED.DYSGE1 ---
HPI History of Present Illness Chief Complaint: Shortness of Breath Detail of Chief Complaint: Fever and chills Informant: patient Onset/Context/Timing Onset: Days (3 days) Narrative Narrative: Patient presents secondary to fever and chills with body aches for the past 3 days. He did not check his temperature at home but states he will get very hot and then break out in a sweat. He reports chronic shortness of breath secondary to asthma and COPD. He does not feel that his breathing has been worse recently. He has not had significant cough. He denies vomiting or diarrhea. He states he has not had much of an appetite but has been drinking Gatorade. [facility] Medical History (Updated 08/08/22 @ 17:[address] Nanette Jose MD) AAA (abdominal aortic aneurysm) Abdominal aortic aneurysm (AAA) greater than 5.5 cm in diameter in male Alcohol abuse Allergy to dog dander Anemia Arthritis Asthma Atherosclerotic heart disease of [place] coronary artery without angina pectoris Back pain BPH (benign prostatic hyperplasia) Bronchiectasis Cancer Complete small bowel obstruction COPD (chronic obstructive pulmonary disease) Coronary artery disease Easy bruising Elevated PSA Epistaxis Essential (primary) hypertension Excessive bleeding Former smoker History of colon cancer History of ST elevation myocardial infarction (STEMI) (05/27/07) Hyperlipidemia Hypoxia Insomnia Iron deficiency Kidney stones Left inguinal hernia Low back pain Myocardial infarct 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) On home oxygen therapy Partial bowel obstruction Personal history of other malignant neoplasm of rectum, rectosigmoid junction, and anus Short bowel syndrome Sinus bradycardia 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 classification Tachycardia Therapeutic drug monitoring Wears glasses Home Medications fluticasone propionate 50 mcg/actuation nasal spray,suspension 1 spray intranasal BID congestion 05/09/20 [History Last Taken 07/24/22] garlic 2,000 mg capsule 2,000 mg PO DAILY 06/12/21 [History Last Taken 07/24/22] albuterol sulfate 90 mcg/actuation aerosol inhaler (Ventolin HFA) 2 puff inhalation Q4H PRN shortness of breath or wheezing #18 grams 07/02/21 [Rx Last Taken Unknown] formoterol fumarate 20 mcg/2 mL solution for nebulization (Perforomist) 2 ml inhalation Q12H copd #120 mL 12/25/21 [Rx Last Taken 07/23/22] clopidogrel 75 mg tablet 75 mg PO QHS blood thinner #90 tabs 01/08/22 [Rx Last Taken 07/24/22] budesonide 0.5 mg/2 mL suspension for nebulization 0.5 mg (2 mL) inhalation Q12H copd #180 mL 03/25/22 [Rx Last Taken 07/23/22] tamsulosin 0.4 mg capsule 0.4 mg PO QHS prostate #90 caps 04/15/22 [Rx Last Taken 07/24/22] verapamil 240 mg tablet,extended release 240 mg PO QHS heart #90 tabs 04/28/22 [Rx Last Taken 07/24/22] ascorbic acid (vitamin C) 1,000 mg capsule 1 g PO DAILY 04/30/22 [History Last Taken 07/24/22] cholecalciferol (vitamin D3) 250 mcg (10,000 unit) capsule 250 mcg PO DAILY 04/30/22 [History Last Taken 07/24/22] glutamine 500 mg tablet (L-Glutamine) 500 mg PO BID 04/30/22 [History Last Taken 07/24/22] glutathione 500 mg capsule 50 mg PO DAILY SUPPLEMENT 04/30/22 [History Last Taken 07/24/22] lactobacillus combination no.9 4 billion cell capsule (Adult 50 Plus Probiotic) 4,000 mmu cells PO DAILY 04/30/22 [History Last Taken 07/24/22] magnesium 250 mg tablet 250 mg PO DAILY 04/30/22 [History Last Taken 07/24/22] multivitamin 2 tab PO DAILY 04/30/22 [History Last Taken 07/24/22] turmeric 400 mg capsule 400 mg PO DAILY SUPPLEMENT 04/30/22 [History Last Taken 07/24/22] vitamin B complex 1 cap PO DAILY 04/30/22 [History Last Taken 07/24/22] mirtazapine 15 mg tablet 15 mg PO QHS #30 tabs 06/24/22 [Rx Last Taken 07/24/22] levofloxacin 750 mg tablet 750 mg PO DAILY #6 tabs 08/08/22 [Rx Last Taken Unknown] prednisone 20 mg tablet 40 mg PO DAILY #8 tabs 08/08/22 [Rx Last Taken Unknown] Allergy/AdvReac Type Severity Reaction Status Date / Time aspirin Allergy Shortness Verified 07/31/22 16:18 of breath adhesive AdvReac Rash Verified 07/31/22 16:18 amoxicillin trihydrate AdvReac Other Verified 07/31/22 16:18 [From Augmentin] atorvastatin calcium AdvReac leg cramps Verified 07/31/22 16:18 [From Lipitor] isopropyl alcohol AdvReac Rash Verified 07/31/22 16:18 metoprolol succinate AdvReac Rash Verified 07/31/22 16:18 [From Toprol XL] naproxen [From Naprosyn] AdvReac Shortness Verified 07/31/22 16:18 of breath paroxetine HCl [From Paxil] AdvReac Unknown Verified 07/31/22 16:18 potassium clavulanate AdvReac tingling Verified 07/31/22 16:18 [From Augmentin] all over propoxyphene HCl AdvReac Unknown Verified 07/31/22 16:18 [From Darvon] sertraline HCl [From Zoloft] AdvReac Unknown Verified 07/31/22 16:18 simvastatin [From Zocor] AdvReac Unknown Verified 07/31/22 16:18 tiotropium bromide AdvReac Other Verified 07/31/22 16:18 [From Spiriva with HandiHaler] Family History Father Heart disease Hypertension High cholesterol CVA (cerebral vascular accident) Mother Dementia Surgical History H/O hernia repair History of coronary artery stent placement (06/07/20) History of endovascular stent graft for abdominal aortic aneurysm (AAA) (06/25/20) History of esophagogastroduodenoscopy (EGD) History of left heart catheterization (05/24/20) History of left inguinal hernia repair (06/2021) history of right eye surgery History of right inguinal hernia repair History of tonsillectomy History of tonsillectomy and adenoidectomy Hx of appendectomy Hx of bilateral cataract extraction Hx of colonoscopy Hx of sinus surgery Hx of thumb surgery Hx of umbilical hernia repair Status post laparoscopic colectomy Social History Smoking Status: Former smoker pack-years: 67 second hand exposure: No alcohol intake: current alcohol intake frequency: other Alcohol type: beer details: Previous nightly drinker. Stopped 2021 substance use type: does not use caffeine: Yes Type: coffee Number of servings: 4 what type of physical activity do you participate in: other details: pulmonary rehab frequency: 3-4 times per week ROS ROS ED Constitutional Constitutional ED: Reports chills, fever(s) and sweats Eyes Eyes: Denies change in vision or discharge from eye(s) ENT ENT ED: Denies discharge from eye(s), rhinorrhea or sore throat Cardiovascular Cardiovascular: Denies chest pain or palpitations Respiratory/Chest Respiratory/Chest: Reports dyspnea; Denies cough Gastrointestinal Gastrointestinal: Denies abdominal pain, diarrhea, nausea or vomiting Genitourinary Genitourinary ED: Denies dysuria Musculoskeletal Musculoskeletal: Reports myalgias; Denies back pain or extremity pain Integumentary Denies Abrasions or rash Neurologic Neurologic: Reports weakness; Denies headache(s) Allergic/Immunologic Allergic/Immunologic ED: Denies lip swelling or urticaria EXAM Physical Exam Const Vital Signs: 08/08/22 14:41 08/08/22 15:04 08/08/22 15:22 Temperature 99.2 F H Temperature Source Temporal Pulse Rate 122 H Respiratory Rate 24 H Respiratory Effort Normal Non-Labored Respiratory Pattern Normal Blood Pressure 158/124 H Blood Pressure Mean 135 Pulse Ox 97 96 Oxygen Delivery Method Room Air Room Air 08/08/22 15:23 08/08/22 16:00 Temperature 100.6 F H Temperature Source Oral Pulse Rate 103 H Respiratory Rate 14 Respiratory Effort Respiratory Pattern Blood Pressure 140/80 H Blood Pressure Mean 100 Pulse Ox 93 Oxygen Delivery Method Room Air Positive well nourished and well developed General Appearance ED: well developed HEENT Reports normocephalic and head/scalp atraumatic Eyes PERRL and EOMs intact bilaterally Neck supple Chest Wall inspection of chest normal and palpation of chest normal Resp normal respiratory effort and clear to auscultation bilaterally Cardio regular rate and regular rhythm GI normal to inspection, nondistended, normoactive bowel sounds Palpation: soft Extremity normal to inspection Neuro oriented x3 Neuro Narrative: No focal neurologic deficit. Sensorium / Orientation: alert Psych mental status grossly normal Skin no rashes or lesions noted MDM MDM MDM Narrative Medical decision making narrative: Patient placed on library monitor. Sepsis work-up initiated. Swab for COVID and influenza obtained. Lab Data Attestation: I reviewed the patient's lab results. Labs: Laboratory Results - last 24 hr 08/08/22 08/08/22 08/08/22 15:12 15:12 15:12 WBC 8.0 RBC 4.89 Hgb 13.9 Hct 43.1 MCV 88.1 MCH 28.4 MCHC 32.3 RDW Std Deviation 49.6 H RDW Coeff of Kylee 15.5 H Plt Count 270 MPV 11.1 Immature Gran % (Auto) 0.400 Neut % (Auto) 79.7 H Lymph % (Auto) 6.3 L [place] % (Auto) 9.9 Eos % (Auto) 3.1 Baso % (Auto) 0.6 Absolute Neuts (auto) 6.4 Absolute Lymphs (auto) 0.50 L Nucleated RBC % 0 Differential Comment SEE COMMENT Platelet Estimate ADEQUATE RBC Morphology NORM C+C PT 14.2 INR 1.1 APTT 33.2 Sodium 136 Potassium 3.6 Chloride 103 Carbon Dioxide 24.0 Anion Gap 9 BUN 20 H Creatinine 1.81 H Estim Creat Clear Calc 31.45 Est GFR (MDRD) Af Amer 47 L Est GFR (MDRD) Non-Af 39 L BUN/Creatinine Ratio 11.0 Glucose 143 H Lactic Acid Calcium 9.4 Total Bilirubin 0.50 AST 20 ALT 21 Alkaline Phosphatase 91 Total Protein 7.1 Albumin 3.6 Globulin 3.5 Albumin/Globulin Ratio 1.0 Urine Color Urine Clarity Urine pH Ur Specific [place] Urine Protein Urine Glucose (UA) Urine Ketones Urine Occult Blood Urine Nitrite Urine Bilirubin Urine Urobilinogen Ur Leukocyte Esterase Urine RBC Urine WBC Ur Squamous Epith Cells Urine Bacteria Urine Mucus 08/08/22 08/08/22 15:12 15:12 WBC RBC Hgb Hct MCV MCH MCHC RDW Std Deviation RDW Coeff of Kylee Plt Count MPV Immature Gran % (Auto) Neut % (Auto) Lymph % (Auto) [place] % (Auto) Eos % (Auto) Baso % (Auto) Absolute Neuts (auto) Absolute Lymphs (auto) Nucleated RBC % Differential Comment Platelet Estimate RBC Morphology PT INR APTT Sodium Potassium Chloride Carbon Dioxide Anion Gap BUN Creatinine Estim Creat Clear Calc Est GFR (MDRD) Af Amer Est GFR (MDRD) Non-Af BUN/Creatinine Ratio Glucose Lactic Acid 1.8 Calcium Total Bilirubin AST ALT Alkaline Phosphatase Total Protein Albumin Globulin Albumin/Globulin Ratio Urine Color Yellow Urine Clarity Clear Urine pH 5.0 Ur Specific [place] 1.025 Urine Protein 30 H Urine Glucose (UA) Normal Urine Ketones 5 H Urine Occult Blood Negative Urine Nitrite Negative Urine Bilirubin Negative Urine Urobilinogen 1 H Ur Leukocyte Esterase 25 H Urine RBC 0 SEEN Urine WBC 0-5 SEEN Ur Squamous Epith Cells 0 SEEN Urine Bacteria 0 SEEN Urine Mucus 0 SEEN Radiography Diagnostic Testing: Clinical Impression(s) from Imaging Studies Chest X-Ray 08/08/22 15:30 IMPRESSION: Similar COPD related changes compared to prior with no evidence of new focal infiltrate. Electronically Signed: Mykel Summers at 16:00 EDT , EKG Initial EKG: Attestation: I personally reviewed and interpreted this EKG as follows: Interpretation: Sinus Tachycardia (Sinus tach at 107 with no acute ischemia.) Treatment and Re-Evaluation :: CBC reveals normal white count with 79% neutrophils. Chemistry studies reveal a BUN of 20 and a creatinine of 1.81. This is only slightly bumped from his baseline. Glucose is 143. LFTs are normal. Lactic acid is normal at 1.8. Urinalysis reveals no sign of infection. Portable chest x-ray per my interpretation reveals COPD changes with no focal infiltrate. Radiology interpretation is reviewed and agrees. Swab for COVID and influenza is negative. Patient's temperature was 100.6 here. He was given Tylenol. Blood and urine cultures have been sent and are pending. Test results are discussed with patient and son at bedside. Patient now states that he did have some increased wheezing. In light of this with his underlying COPD we will treat him with steroids and antibiotics. He has done well with Levaquin in the past per review of pulmonary notes. Patient states that he does not want to stay in the hospital as he needs to care for his . Return instructions are provided and he is aware that if his blood cultures are positive he will receive a phone call and asked to return for IV antibiotics. Discharge Plan Triage Chief Complaint: Shortness of Breath ED Provider: Nanette Jose Dx/Rx/DC Orders Clinical Impression: Fever, COPD exacerbation Instructions: ED COPD Flare, ED Fever Control (Adult) Prescriptions: New prednisone 20 mg tablet 40 mg PO DAILY Qty: 8 0RF levofloxacin 750 mg tablet 750 mg PO DAILY Qty: 6 0RF No Action fluticasone propionate 50 mcg/actuation spray,suspension 1 spray INTRANASAL BID Rx Instructions: administer into each nostril multivitamin Tablet 2 tab PO DAILY magnesium 250 mg tablet 250 mg PO DAILY L-Glutamine 500 mg tablet 500 mg PO BID vitamin B complex Capsule 1 cap PO DAILY cholecalciferol (vitamin D3) 250 mcg (10,000 unit) capsule 250 mcg PO DAILY ascorbic acid (vitamin C) 1,000 mg capsule 1 g PO DAILY glutathione 500 mg capsule 50 mg PO DAILY Adult 50 Plus Probiotic 4 billion cell capsule 4,000 mmu cells PO DAILY Rx Instructions: administer with a meal turmeric 400 mg capsule 400 mg PO DAILY garlic 2,000 mg Capsule 2,000 mg PO DAILY albuterol sulfate [Ventolin HFA] 90 mcg/actuation HFA aerosol inhaler 2 puff inhalation Q4H PRN (Reason: shortness of breath or wheezing) Qty: 18 6RF formoterol fumarate [Perforomist] 20 mcg/2 mL solution for nebulization 2 ml inhalation Q12H Qty: 120 11RF clopidogrel 75 mg tablet 75 mg PO QHS Qty: 90 3RF Label Comments: STOPPING 3 DAYS PRIOR budesonide 0.5 mg/2 mL suspension for nebulization 0.5 mg INHALATION Q12H Qty: 180 11RF tamsulosin 0.4 mg capsule 0.4 mg PO QHS Qty: 90 1RF verapamil 240 mg tablet extended release 240 mg PO QHS Qty: 90 3RF mirtazapine 15 mg tablet 15 mg PO QHS Qty: 30 2RF Primary Care Provider: Krystyna Sanchez Referrals: Krystyna Sanchez MD [Primary Care Provider] - 1 Week Monalisa Lyon NP, NAILER OPERATOR-C [Med Staff - [facility]] - As Needed Disposition Disposition: Home, Self Care
[2022-08-08 15:22] VITALS: O2SAT 96
[2022-08-08 15:22] LABS: Absolute Neutrophil Count 6.4 X10^3/uL (2.0-7.7); Basophil# 0.05 X10^3/uL; Basophil% 0.6 % (0-1); Eosinophil# 0.25 X10^3/uL; Eosinophils% 3.1 % (0-5); Hematocrit 43.1 % (40-54); Hemoglobin 13.9 g/dL (13.0-16.5); Lymphocyte % 6.3 % (19-41); Mean Corp Hgb Conc 32.3 g/dL (32-36); Mean Corpuscular Hgb 28.4 pg (27.0-32.0); Mean Corpuscular Volume 88.1 fL (80-94); Mean Platelet Vol. 11.1 fl (6.2-12.0); Monocyte# 0.79 X10^3/uL; Monocyte% 9.9 % (0-10); NRBC Flagged by Analyzer 0 % (0-5); Neutrophil # 6.35 X10^3/uL (2.7-7.7); Neutrophil % 79.7 % (47-70); POSITIVE DIFFERENTIAL YES; Platelet Count 270 K/mm3 (150-450); RBC Distribution Width CV 15.5 % (11.6-14.6); RBC Distribution Width SD 49.6 fl (35.1-43.9); Red Blood Count 4.89 M/mm3 (4.6-6.2)
[2022-08-08 15:23] VITALS: TEMP 38.1
[2022-08-08 15:28] LABS: Differential Indicated SCAN CRITERIA MET
[2022-08-08] MEDS: 0.9% Normal Saline 1,000 ML 150 ML IV (15:30)
--- NOTE | 2022-08-08 15:30 | RAD_ITS ---
STUDY: X-RAY CHEST REASON FOR EXAM: Male, 77 years old. fever TECHNIQUE: Single AP portable view of the chest. COMPARISON: 22 May 2020 FINDINGS: Bilateral apical bullous changes with chronic basilar interstitial markings similar to prior exam. There is no demonstrated pleural abnormality. Normal size heart. Normal mediastinum and nya. Normal visualized pulmonary arteries. Normal visualized aortic arch and descending thoracic aorta. Normal visualized thoracic spine. Normal visualized ribs, clavicles, and shoulders. There is no demonstrated abnormality of the visualized soft tissue structures of the upper abdomen. RAD/Chest 1 View (Portable) IMPRESSION: Similar COPD related changes compared to prior with no evidence of new focal infiltrate. Electronically Signed: Mykel Summers DO at 16:00 EDT ,
[2022-08-08 15:32] LABS: Bacteria 0 SEEN /hpf (None Seen); Mucous, Urine 0 SEEN /hpf (<or=2+); Red Blood Cells-Urine 0 SEEN /hpf (0-5); Squamous Epithelial Cells - UA 0 SEEN /hpf (0-5)
[2022-08-08 15:37] LABS: Color, Urine Yellow (Yellow); Glucose, Dipstick Normal (Normal); Ketone-Dipstick 5 mg/dl (Negative); Leukocyte Esterase-Dipstick 25 /ul (Negative); Nitrite-Dipstick Negative (Negative); Occult Blood-Urine Negative /ul (Negative); Protein-Dipstick 30 mg/dl (Negative); Specific Gravity, Urine 1.025 (1.002-1.030); Urine Bilirubin Dipstick Negative (Negative); Urine Clarity Clear (Clear); Urine Urobilinogen 1 mg/dl (Normal)
[2022-08-08 15:39] LABS: AST(SGOT) 20 U/L (15-37); Alanine Aminotransfer ALT/SGPT 21 U/L (16-61); Albumin, Serum 3.6 g/dL (3.2-5.0); Alkaline Phosphatase 91 U/L (45-117); Anion Gap 9 (5-15); BUN 20 mg/dL (7-18); Calcium,Total 9.4 mg/dL (8.5-10.1); Chloride 103 mmol/L (98-107); Creatinine, Serum 1.81 mg/dL (0.70-1.30); EST Glomerular Filtration Rate 39 mL/min (>60); Est Glom Filt Rate - Afr Amer 47 mL/min (>60); Estimated Creatinine Clearance 31.45 ml/min; Globulin 3.5 g/dL (2.2-4.2); Glucose 143 mg/dL (74-106); Potassium 3.6 mmol/L (3.5-5.1); Protein, Total 7.1 g/dL (6.4-8.2); Sodium Level 136 mmol/L (136-145)
[2022-08-08 15:44] LABS: White Blood Cells 0-5 SEEN /hpf (0-5)
[2022-08-08 16:00] VITALS: BP 140/80; PULSE 103; RESP 14; O2SAT 93
[2022-08-08 16:08] LABS: International Normalized Ratio 1.1; Partial Thromboplast Time 33.2 Seconds (24.1-36.2); Prothrombin Time (Protime)PT. 14.2 SECONDS (11.7-14.9)
[2022-08-08 16:16] LABS: Platelet Estimate ADEQUATE (ADEQ); Red Cell Morphology NORM C+C NORMAL (NORM C&C)
[2022-08-08] MEDS: Acetaminophen 500 MG Tablet 1000 MG PO (16:17)
[2022-08-08 16:18] LABS: Lactic Acid 1.8 mmol/L (0.4-1.9)
[2022-08-08 17:00] VITALS: BP 127/80; PULSE 97; RESP 16; TEMP 37.7; O2SAT 95
[2022-08-08] MEDS: predniSONE 20 MG Tablet 40 MG PO (18:06)
[2022-08-08] MEDS: levoFLOXacin 750 MG Tablet PO (18:06)
[2022-08-08 18:09] VITALS: PULSE 92; RESP 18; O2SAT 95
== END 2022-08-08 18:10 | disposition home or self-care (01) ==
PROVIDERS: Emergency Provider Emergency Medicine; PCP Internal Medicine; Visit Provider Emergency Medicine
DX: J44.1 Chronic obstructive pulmonary disease with (acute) exacerbation (principal); Z87.891 Personal history of nicotine dependence; R50.9 Fever, unspecified; I10 Essential (primary) hypertension; E78.5 Hyperlipidemia, unspecified; I25.10 Atherosclerotic heart disease of native coronary artery without angina pectoris; Z95.5 Presence of coronary angioplasty implant and graft; Z79.899 Other long term (current) drug therapy; Z79.02 Long term (current) use of antithrombotics/antiplatelets; I25.2 Old myocardial infarction; Z79.51 Long term (current) use of inhaled steroids; N40.0 Benign prostatic hyperplasia without lower urinary tract symptoms; J45.909 Unspecified asthma, uncomplicated
CPT/HCPCS: 71045; 80053; 81001; 83605; 85025; 85610; 85730; 87040; 87086; 87428; 93005; 96360; 96361; 99285; J7030; A4216

== ENCOUNTER → 2022-08-13 | Outpatient (CLI) | payer MEDICARE, OTHER, SELFPAY ==
--- NOTE | 2022-08-13 | PROSBIL_PTH ---
PATIENT: BETTE ASTORGA LOC: [facility] U#:[id number] AGE/SX: 77/M ROOM: RE08/13/[address]: Dr. Aren Montaño MD : 1945 BED: DIS: 08/13/2022 SPEC #: [id number] RECD: 08/14/22 09:41 STATUS: LAUREN RETheron #: [id number] SOLO: 08/13/22 00:[address]: Aren Montaño DEPT: SURGICAL PATHOLOGY RECD BY: Yusef Hackett ENTERED: 08/14/22 09:41 SP TYPE: PROST BX AMINATA DR: Dr. Krystyna Sanchez MD Tissues: A - PROSTATE RIGHT B - PROSTATE RIGHT C - PROSTATE RIGHT D - PROSTATE LEFT E - PROSTATE LEFT F - PROSTATE LEFT Procedures: PROSTATE BX HEADER OPERATION: Prostate biopsy PRE-OP DIAGNOSIS: Elevated PSA TISSUE SUBMITTED: A - Right apex, B - Right mid, C - Right base, D - Left apex, E - Left mid, F - Left base MICROSCOPIC DIAGNOSIS A. Right prostate, apex, core biopsy: Prostatic adenocarcinoma. [place] grade: 5+5=10 Number of cores involved: 1/1 Proportion of tissue involved: ~80% Perineural invasion: Not identified. Greatest tumor length: 0.8 cm B. Right prostate, mid, core biopsy: Prostatic adenocarcinoma. Dinah grade: 4+3=7 Number of cores involved: 2/2 Proportion of tissue involved: >95% Perineural invasion: Not identified. Greatest tumor length: 0.8 cm Focal high-grade prostatic intraepithelial neoplasia (HGPIN). C. Right prostate, base, core biopsy: Prostatic adenocarcinoma. Dinah grade: 5+3=8 Number of cores involved: 1/1 Proportion of tissue involved: 90% Perineural invasion: Not identified. Greatest tumor length: 0.8 cm D. Left prostate, apex, core biopsy: Prostatic adenocarcinoma. Dinah grade: 3+4=7 Number of cores involved: 1/1 Proportion of tissue involved: 70% Perineural invasion: Not identified. Greatest tumor length: 0.7 cm Focal high-grade prostatic intraepithelial neoplasia (HGPIN). E. Left prostate, mid, core biopsy: Prostatic adenocarcinoma. [place] grade: 4+3=7 Number of cores involved: 1/1 Proportion of tissue involved: >80% Perineural invasion: Not identified. Greatest tumor length: 0.8 cm F. Left prostate, base, core biopsy: Prostatic adenocarcinoma. Dinah grade: 4+3=7 Number of cores involved: 1/1 Proportion of tissue involved: 50% Perineural invasion: Not identified. Greatest tumor length: 0.7 cm, discontinuous Focal high-grade prostatic intraepithelial neoplasia (HGPIN). SJ:gabi 08/17/2022 COMMENT Case has been reviewed in consultation with Dr. Hartley who concurs with the above diagnosis. IDC:[email or web address] MICROSCOPIC DESCRIPTION Slides are reviewed. GROSS DESCRIPTION A - Received is one container designated prostate, right apex. The specimen consists of one elongated fragment of light padilla-white soft tissue measuring 1.0 cm in length and 0.1 cm in diameter. The specimen is totally submitted in one cassette. B - Received is one container designated prostate, right mid. The specimen consists of two elongated fragments of light padilla-white soft tissue measuring 0.3 and 0.9 cm in length and 0.1 cm in diameter. The specimen is totally submitted in one cassette. C - Received is one container designated prostate, right base. The specimen consists of one elongated fragment of light padilla-white soft tissue measuring 0.7 cm in length and 0.1 cm in diameter. The specimen is totally submitted in one cassette. D - Received is one container designated prostate, left apex. The specimen consists of one elongated fragment of light padilla-white soft tissue measuring 0.8 cm in length and 0.1 cm in diameter. The specimen is totally submitted in one cassette. E - Received is one container designated prostate, left mid. The specimen consists of one elongated fragment of light padilla-white soft tissue measuring 0.9 cm in length and 0.1 cm in diameter. The specimen is totally submitted in one cassette. F - Received is one container designated prostate, left base. The specimen consists of one elongated fragment of light padilla-white soft tissue measuring 1.0 cm in length and 0.1 cm in diameter. The specimen is totally submitted in one cassette. / YASMANY:gabi 08/14/2022 TC:0 CPT: G0146
== END | disposition home or self-care (01) ==
LOC: LABSPEC 16:21
PROVIDERS: PCP Internal Medicine; Referring Provider Urology; Visit Provider Urology
DX: R97.20 Elevated prostate specific antigen [PSA] (principal)
CPT/HCPCS: 88305; G0416

== ENCOUNTER → 2022-08-18 | Outpatient (CLI) | payer MEDICARE, OTHER, SELFPAY ==
--- NOTE | 2022-08-18 09:05 | NM_ITS ---
CLINICAL: 77-year-old male with recent diagnosis of prostate carcinoma. WHOLE BODY 99m Tc MDP RADIONUCLIDE BONE SCINTIGRAPHY COMPARISON: None available FINDINGS: Following the intravenous administration of 27.1 mCi of 99m Tc MDP, whole body bone images reveal: 1. Increased radiopharmaceutical concentration is defined in the sternoclavicular compartment of the left shoulder, the acromioclavicular compartment both shoulders, the right elbow and wrist articulations, the first sacral segment to the right of midline anteriorly, the knees bilaterally. 2. The remaining skeletal structures are scintigraphically unremarkable with normal-appearing renal images and urinary bladder activity identified. NM/Bone Scan Whole Body IMPRESSION: 1. Degenerative arthritis is expressed in the shoulders bilaterally, the right elbow and wrist, the sacrum and bilateral knee articulations. 2. There is no definitive scintigraphic evidence of diffuse axial skeletal metastatic disease on the current examination. Electronically Signed: Qamar Thao, at 21:26 EDT ,
== END | disposition home or self-care (01) ==
LOC: NM 09:04
PROVIDERS: PCP Internal Medicine; Referring Provider Urology; Visit Provider Urology
DX: R97.20 Elevated prostate specific antigen [PSA] (principal)
CPT/HCPCS: 78306; A9503

== ENCOUNTER → 2022-08-26 | Outpatient (CLI) | payer MEDICARE, OTHER, SELFPAY ==
--- NOTE | 2022-08-26 17:23 | CT_ITS ---
STUDY: CT ABDOMEN AND PELVIS WITH AND WITHOUT CONTRAST REASON FOR EXAM: Male, 77 years old. Newly diagnosed prostate cancer. History of colon carcinoma with surgical treatment. Bilateral inguinal hernia repair. RADIATION DOSAGE (If Supplied By Facility): CTDIvol = ( 17.07 ) mGy, DLP = ( 2127.88 ) mGycm TECHNIQUE: Transaxial images were obtained from the dome of the diaphragm to the symphysis pubis without oral contrast. IV 100mL Isovue-300 was administered. Sagittal and coronal images were reconstructed. Individualized dose optimization techniques were used for this CT. COMPARISON: Comparison is made with prior examination of July 25, 2022. FINDINGS: There is a 4 cm x 2.9 cm bulla in the anterior medial aspect of the right lower lobe abutting the right minor fissure. Coronary artery calcification. Normal liver. Normal gallbladder and extrahepatic biliary system. Normal spleen. Normal pancreas. Normal bilateral adrenal glands. 1.6 m cyst in the upper pole of the right kidney. 2.3 cm cyst in the lateral proximal aspect of the left kidney. There is a small hiatal hernia. Normal small intestine. Moderate amount of fecal material is seen in the colon. Scattered sigmoid diverticula. The patient is status post appendectomy. The patient is status post endoluminal stent grafting of the infrarenal abdominal aortic aneurysm. The distal limbs of the graft is seen in the proximal common iliac arteries bilaterally. This is unchanged. The kiana abdominal aorta has a transverse dimension of 5.6 cm. Atherosclerotic calcification of the kiana abdominal aorta as well as the visceral branches including the right renal artery. Normal inferior vena cava. Normal retroperitoneum. Normal urinary bladder. There is enlargement of the prostate gland. The prostate measures 4.4 cm x 4.5 cm. Calcifications are seen in the central portion. The prostate causes indentation at the bladder base. Normal abdominal wall. There are diffuse degenerative changes of the visualized lumbar spine. CT/CT Abd/Pelvis W/WO Contrast IMPRESSION: Prostatic enlargement with indentation at the bladder base. Stable appearance of the endoluminal stent grafting of the abdominal aortic aneurysm. Emphysematous changes seen in the lung bases. Electronically Signed: Baljeet Thurman MD at 10:09 EDT ,
== END | disposition home or self-care (01) ==
LOC: CT 17:22
PROVIDERS: PCP Internal Medicine; Referring Provider Urology; Visit Provider Urology
DX: R97.20 Elevated prostate specific antigen [PSA] (principal); C61 Malignant neoplasm of prostate
CPT/HCPCS: 74178; Q9967

== ENCOUNTER 2022-10-13 14:40 | Emergency (ER) | payer MEDICARE, OTHER, SELFPAY ==
[2022-10-13 14:41] VITALS: BP 177/93; PULSE 89; RESP 16; TEMP 36; O2SAT 95; BMI 23.5
--- NOTE | 2022-10-13 14:45 | RAD_ITS ---
STUDY: X-RAY RIGHT FOOT, FIRST TOE REASON FOR EXAM: Male, 77 years old. Injury. TECHNIQUE: 3 view(s) of the toe were obtained. COMPARISON: None. FINDINGS: Normal visualized metatarsus. Normal metatarsophalangeal (M.T.P) joint. Normal interphalangeal joints. Normal phalanges and interphalangeal joints. Soft tissue swelling. RAD/Toe(s) Min 2 Views IMPRESSION: Soft tissue swelling. Electronically Signed: Baljeet Thurman MD at 15:00 EDT ,
--- NOTE | 2022-10-13 16:39 | EDS_ITS ---
HPI History of Present Illness Chief Complaint: Lower Extremity Injury Informant: patient Narrative Narrative: Patient complains of middle toe shape change on his right foot. Patient states that about a month ago he accidentally kicked a very heavy coffee table by accident when he went to kick a tennis ball for his dog. He hurt his great toe. It had blood under the nail. That is slowly resolving. That is not bothering him now. But he noticed that his middle toe now has a slight bend in the tip that was not there before. He called the foot and ankle office and [facility] for an appointment and they referred him here to the emergency department. He states it does not hurt. There is no swelling. No redness. No fevers or chills. Nothing really makes it better or worse. [facility] Medical History AAA (abdominal aortic aneurysm) Abdominal aortic aneurysm (AAA) greater than 5.5 cm in diameter in male Alcohol abuse Allergy to dog dander Anemia Arthritis Asthma Atherosclerotic heart disease of [place] coronary artery without angina pectoris Back pain BPH (benign prostatic hyperplasia) Bronchiectasis Cancer Complete small bowel obstruction COPD (chronic obstructive pulmonary disease) Coronary artery disease Easy bruising Elevated PSA Epistaxis Essential (primary) hypertension Excessive bleeding Former smoker History of colon cancer History of ST elevation myocardial infarction (STEMI) (05/27/07) Hyperlipidemia Hypoxia Insomnia Iron deficiency Kidney stones Left inguinal hernia Low back pain Myocardial infarct 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) On home oxygen therapy Partial bowel obstruction Personal history of other malignant neoplasm of rectum, rectosigmoid junction, and anus Prostate CA Short bowel syndrome Sinus bradycardia 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 classification Tachycardia Therapeutic drug monitoring Wears glasses Home Medications fluticasone propionate 50 mcg/actuation nasal spray,suspension 1 spray intranasal BID congestion 05/09/20 [History Last Taken 07/24/22] garlic 2,000 mg capsule 2,000 mg PO DAILY 06/12/21 [History Last Taken 07/24/22] albuterol sulfate 90 mcg/actuation aerosol inhaler (Ventolin HFA) 2 puff inhalation Q4H PRN shortness of breath or wheezing #18 grams 07/02/21 [Rx Last Taken Unknown] formoterol fumarate 20 mcg/2 mL solution for nebulization (Perforomist) 2 ml inhalation Q12H copd #120 mL 12/25/21 [Rx Last Taken 07/23/22] clopidogrel 75 mg tablet 75 mg PO QHS blood thinner #90 tabs 01/08/22 [Rx Last Taken 07/24/22] budesonide 0.5 mg/2 mL suspension for nebulization 0.5 mg (2 mL) inhalation Q12H copd #180 mL 03/25/22 [Rx Last Taken 07/23/22] verapamil 240 mg tablet,extended release 240 mg PO QHS heart #90 tabs 04/28/22 [Rx Last Taken 07/24/22] ascorbic acid (vitamin C) 1,000 mg capsule 1 g PO DAILY 04/30/22 [History Last Taken 07/24/22] cholecalciferol (vitamin D3) 250 mcg (10,000 unit) capsule 250 mcg PO DAILY 04/30/22 [History Last Taken 07/24/22] glutamine 500 mg tablet (L-Glutamine) 500 mg PO BID 04/30/22 [History Last Taken 07/24/22] glutathione 500 mg capsule 50 mg PO DAILY SUPPLEMENT 04/30/22 [History Last Taken 07/24/22] lactobacillus combination no.9 4 billion cell capsule (Adult 50 Plus Probiotic) 4,000 mmu cells PO DAILY 04/30/22 [History Last Taken 07/24/22] magnesium 250 mg tablet 250 mg PO DAILY 04/30/22 [History Last Taken 07/24/22] multivitamin 2 tab PO DAILY 04/30/22 [History Last Taken 07/24/22] turmeric 400 mg capsule 400 mg PO DAILY SUPPLEMENT 04/30/22 [History Last Taken 07/24/22] vitamin B complex 1 cap PO DAILY 04/30/22 [History Last Taken 07/24/22] mirtazapine 15 mg tablet 15 mg PO QHS #90 tabs 08/17/22 [Rx Last Taken Unknown] mirtazapine 7.5 mg tablet 7.5 mg PO QHS #90 tabs 08/17/22 [Rx Last Taken Unknown] tamsulosin 0.4 mg capsule 0.4 mg PO QHS prostate #90 caps 10/13/22 [Rx Last Taken Unknown] Allergy/AdvReac Type Severity Reaction Status Date / Time aspirin Allergy Shortness Verified 10/07/22 13:20 of breath adhesive AdvReac Rash Verified 10/07/22 13:20 amoxicillin trihydrate AdvReac Other Verified 10/07/22 13:20 [From Augmentin] atorvastatin calcium AdvReac leg cramps Verified 10/07/22 13:20 [From Lipitor] isopropyl alcohol AdvReac Rash Verified 10/07/22 13:20 metoprolol succinate AdvReac Rash Verified 10/07/22 13:20 [From Toprol XL] naproxen [From Naprosyn] AdvReac Shortness Verified 10/07/22 13:20 of breath paroxetine HCl [From Paxil] AdvReac Unknown Verified 10/07/22 13:20 potassium clavulanate AdvReac tingling Verified 10/07/22 13:20 [From Augmentin] all over propoxyphene HCl AdvReac Unknown Verified 10/07/22 13:20 [From Darvon] sertraline HCl [From Zoloft] AdvReac Unknown Verified 10/07/22 13:20 simvastatin [From Zocor] AdvReac Unknown Verified 10/07/22 13:20 tiotropium bromide AdvReac Other Verified 10/07/22 13:20 [From Spiriva with HandiHaler] Family History Father Heart disease Hypertension High cholesterol CVA (cerebral vascular accident) Mother Dementia Surgical History H/O hernia repair History of coronary artery stent placement (06/07/20) History of endovascular stent graft for abdominal aortic aneurysm (AAA) (06/25/20) History of esophagogastroduodenoscopy (EGD) History of left heart catheterization (05/24/20) History of left inguinal hernia repair (06/2021) history of right eye surgery History of right inguinal hernia repair History of tonsillectomy History of tonsillectomy and adenoidectomy Hx of appendectomy Hx of bilateral cataract extraction Hx of colonoscopy Hx of sinus surgery Hx of thumb surgery Hx of umbilical hernia repair Status post laparoscopic colectomy Social History Smoking Status: Former smoker pack-years: 67 second hand exposure: No alcohol intake: current alcohol intake frequency: other Alcohol type: beer details: Previous nightly drinker. Stopped 2021 substance use type: does not use caffeine: Yes Type: coffee Number of servings: 4 what type of physical activity do you participate in: other details: pulmonary rehab frequency: 3-4 times per week ROS ROS ED Constitutional Constitutional ED: Denies chills or fever(s) Cardiovascular Cardiovascular: Denies chest pain Musculoskeletal Musculoskeletal: Reports arthralgias Neurologic Neurologic: Denies paresthesias or weakness Hematologic/Lymphatic Hematologic/Lymphatic: Reports easy bleeding and easy bruising Allergic/Immunologic Allergic/Immunologic ED: Denies urticaria EXAM Physical Exam Narrative Exam Narrative: Patient awake alert sitting very comfortably in bed nontoxic in appearance. Breathing is easy and unlabored. Abdomen is nontender and thin soft. Examination of his right foot does have a subungual hematoma that looks old under the right great toe nail. No swelling no deformity no erythema. The middle toe has a slight flexion of the distal phalanx relative to the other. But both flexor and extensor tendons are still intact. He states it did not look this way a few weeks ago. There is again no sign of swelling bruising erythema. No proximal swelling. Const Vital Signs: 10/13/22 14:41 Temperature 96.8 F L Temperature Source Temporal Pulse Rate 89 Respiratory Rate 16 Blood Pressure 177/93 H Blood Pressure Mean 121 Pulse Ox 95 Oxygen Delivery Method Room Air MDM MDM MDM Narrative Medical decision making narrative: My independent interpretation 4 view x-ray of his right toes shows what I am suspicious is a transverse fracture of the distal phalanx of his great toe but this is clinically likely a month old. Final reading by radiology is soft tissue swelling only. I explained that this may be a tendinous injury. There is nothing specifically to do at this time. But he should follow-up with his foot and ankle appointment. Radiography Diagnostic Testing: Clinical Impression(s) from Imaging Studies Toe X-Ray 10/13/22 14:45 IMPRESSION: Soft tissue swelling. Electronically Signed: Baljeet Thurman MD at 15:00 EDT , Discharge Plan Triage Chief Complaint: Lower Extremity Injury ED Provider: Vito Lepe Dx/Rx/DC Orders Clinical Impression: Acquired toe deformity, Closed fracture of right great toe, Hematoma, subungual, great toe, right Instructions: ED Fracture, Toe, Closed Prescriptions: No Action fluticasone propionate 50 mcg/actuation spray,suspension 1 spray INTRANASAL BID Rx Instructions: administer into each nostril multivitamin Tablet 2 tab PO DAILY magnesium 250 mg tablet 250 mg PO DAILY L-Glutamine 500 mg tablet 500 mg PO BID vitamin B complex Capsule 1 cap PO DAILY cholecalciferol (vitamin D3) 250 mcg (10,000 unit) capsule 250 mcg PO DAILY ascorbic acid (vitamin C) 1,000 mg capsule 1 g PO DAILY glutathione 500 mg capsule 50 mg PO DAILY Adult 50 Plus Probiotic 4 billion cell capsule 4,000 mmu cells PO DAILY Rx Instructions: administer with a meal turmeric 400 mg capsule 400 mg PO DAILY garlic 2,000 mg Capsule 2,000 mg PO DAILY albuterol sulfate [Ventolin HFA] 90 mcg/actuation HFA aerosol inhaler 2 puff inhalation Q4H PRN (Reason: shortness of breath or wheezing) Qty: 18 6RF formoterol fumarate [Perforomist] 20 mcg/2 mL solution for nebulization 2 ml inhalation Q12H Qty: 120 11RF clopidogrel 75 mg tablet 75 mg PO QHS Qty: 90 3RF Label Comments: STOPPING 3 DAYS PRIOR budesonide 0.5 mg/2 mL suspension for nebulization 0.5 mg INHALATION Q12H Qty: 180 11RF verapamil 240 mg tablet extended release 240 mg PO QHS Qty: 90 3RF mirtazapine 7.5 mg tablet 7.5 mg PO QHS Qty: 90 3RF Rx Instructions: Take a 15 mg tablet for total nightly dose of 22.5mg QHS mirtazapine 15 mg tablet 15 mg PO QHS Qty: 90 3RF tamsulosin 0.4 mg capsule 0.4 mg PO QHS Qty: 90 1RF Primary Care Provider: Krystyna Sanchez Referrals: Krystyna Sanchez MD [Primary Care Provider] -
[2022-10-13 16:50] VITALS: RESP 18
== END 2022-10-13 16:51 | disposition home or self-care (01) ==
LOC: ED 16:40
PROVIDERS: Emergency Provider Emergency Medicine; PCP Internal Medicine; Visit Provider Emergency Medicine
DX: S92.401A Displaced unspecified fracture of right great toe, initial encounter for closed fracture (principal); J44.9 Chronic obstructive pulmonary disease, unspecified; Z87.891 Personal history of nicotine dependence; I10 Essential (primary) hypertension; I25.10 Atherosclerotic heart disease of native coronary artery without angina pectoris; E78.5 Hyperlipidemia, unspecified; S90.111A Contusion of right great toe without damage to nail, initial encounter; W22.03XA Walked into furniture, initial encounter; M20.61 Acquired deformities of toe(s), unspecified, right foot; J45.909 Unspecified asthma, uncomplicated; Z79.899 Other long term (current) drug therapy; Z79.51 Long term (current) use of inhaled steroids; Z79.02 Long term (current) use of antithrombotics/antiplatelets; Z95.5 Presence of coronary angioplasty implant and graft; Z90.49 Acquired absence of other specified parts of digestive tract
CPT/HCPCS: 73660; 99282

== ENCOUNTER → 2022-10-20 | Outpatient (CLI) | payer MEDICARE, OTHER, SELFPAY ==
--- NOTE | 2022-10-20 11:30 | PET_ITS ---
EXAMINATION: 18 F Pylarify PET-CT HISTORY: A 77-year-old male with history of carcinoma of the prostate and colon presenting for restaging examination. COMPARISON EXAMINATION: None available INDEX LESION SIZE PROMISE SCORE SUV INTERPRETATION Bilateral thoracic perihilum 1 3.9 (max) Quantitative criteria for viable neoplasm are not fulfilled Bilateral hemithorax pulmonary parenchyma, linear 1 2.1 (max) Quantitative criteria for viable neoplasm are not fulfilled Prostate gland, heterogeneous 1 5.1 Quantitative criteria for viable neoplasm are not fulfilled TECHNIQUE: Following the intravenous administration of 9.73 mCi of 18 F Pylarify via the right antecubital fossa, image acquisitions of the head, neck, chest, abdomen and pelvis to the level of the mid thigh at 73 minutes post-tracer distribution reveal: The examination was interpreted using the EANM (Melvin et al., Journal of Nuclear Medicine Molecular Imaging 44:1622, 2017) and PROMISE (Ayden et al., Journal of Nuclear Medicine 59:469, 2018) interpretive criteria. HEIGHT: 67 inches. WEIGHT: 150 lbs. PSMA expression score PROMISE criteria: High (3): SUV ? parotid-salivary gland, intermediate (2): SUV ? liver, low (1): > blood pool, < liver, (0): < blood pool. FINDINGS: Head/Neck: Symmetric radiopharmaceutical concentration is defined in the bilateral parotid and submandibular glands. There is physiologic uptake within the nasal cavity. There is no evidence of abnormal increased tracer concentration within the cranial vault. CHEST: Mild increased radiopharmaceutical concentration is defined in the bilateral thoracic perihilum generating a calculated maximal standard uptake value of 3.9. The PROMISE score is 1. Pertinent chest CT findings are as follows. There is atherosclerotic calcification defined in the thoracic aorta without evidence of dilatation-aneurysm formation. Coronary arterial calcification is observed. A small hiatal hernia is defined. Physiologic uptake is noted within the esophagus. Emphysematous changes are defined in the bilateral upper-mid lung ye. Bilateral axillary soft tissue densities with fatty hilus demonstrate no evidence of increased tracer uptake. Several linear densities are defined in the bilateral hemithorax with a calculated maximal standard uptake value of 2.1. The PROMISE score is 1. Abdomen/Pelvis: Physiologic radiopharmaceutical concentration is otherwise noted in the hepatic and splenic parenchyma, visualized intestinal tract, right and left kidneys, urinary bladder. Mild increased tracer uptake is noted in the prostate bed, diffuse in presentation, with a calculated maximal standard uptake value of 5.1. The PROMISE score is 1. Review of CT of the abdomen and pelvis reveals the following. Cholelithiasis is defined. Atherosclerotic calcification is manifest in the abdominal aorta without evidence of dilatation-aneurysm. Pelvic arterial calcification is encountered. Cortical cyst formation is demonstrated in the left kidney. Right-left inguinal soft tissue densities reveal no evidence of increased tracer uptake. Calcified phlebolith formation is noted in the bilateral lower hemipelvis. Fat containing right and left inguinal hernias are defined. SKELETAL: There are no well-defined sclerotic-lytic changes manifest on review of the appendicular-axial skeletal structures. PET/PET/CT Tumor Base -Thigh Subs IMPRESSION: 1. NEGATIVE EXAMINATION. There is no definitive quantitative scintigraphic evidence of viable neoplasm. 2. Enhanced radiopharmaceutical concentration noted in the bilateral thoracic perihilum, the right-left lung ye, linear in presentation and prostate gland, do not fulfill quantitative criteria for viable neoplasm. (Eimolly et al., Journal of Nuclear Medicine 59:469, 2018). Electronic Signature Qamar Thao, DO Accurate Quantification of SUVs and standardized PROMISE scores for this report are calculated using the exclusive [employer], ([place] Patent No. [id number] [phone] [place] patent [id number] [id number] [id number] ). Standardization and correction of the FDG SUV metric exclusively available with [employer] intellectual property, allow for vendor non-specific objective quantitative sequential FDG PET-CT comparison and otherwise unobtainable optimization of the sensitivity and specificity of the examination. Electronically Signed: Qamar Thao, at 8:00 EDT ,
== END | disposition home or self-care (01) ==
PROVIDERS: PCP Internal Medicine; Referring Provider Urology; Visit Provider Urology
DX: C61 Malignant neoplasm of prostate (principal); R97.20 Elevated prostate specific antigen [PSA]
CPT/HCPCS: 78815; A9595

== ENCOUNTER 2022-11-01 08:09 | Emergency (ER) | payer MEDICARE, OTHER, SELFPAY ==
[2022-11-01 08:10] VITALS: BP 188/111; PULSE 87; RESP 16; TEMP 36.6; O2SAT 96; BMI 23.5
--- NOTE | 2022-11-01 08:22 | EDS_ITS ---
HPI History of Present Illness Chief Complaint: Hypertension Detail of Chief Complaint: Intermittent nonexertional chest pain Informant: patient Onset/Context/Timing Onset: Days Context: Gradual Onset Timing: Intermittent Current Severity: Gone Maximum Severity: Mild Narrative Narrative: 77-year-old male extensive past medical history of prior UT in 2007 he is a cardiac stents 5 placed 2 years ago. History of hypertension and COPD. States he is taking care of his is developing dementia has been quite stressful. He said with distress he intermittently gets anterior chest pain. Not associated with exertion. No shortness of breath. No leg pain or swelling. No history of DVT or PE or risk factors. No recent hospitalization. Currently symptom-free. Also said his blood pressures been running higher than baseline. Prior similar symptoms: No Recent Illness/Hospitalization: No PFSH PFSH Medical History AAA (abdominal aortic aneurysm) Abdominal aortic aneurysm (AAA) greater than 5.5 cm in diameter in male Alcohol abuse Allergy to dog dander Anemia Arthritis Asthma Atherosclerotic heart disease of [place] coronary artery without angina pectoris Back pain BPH (benign prostatic hyperplasia) Bronchiectasis Cancer Complete small bowel obstruction COPD (chronic obstructive pulmonary disease) Coronary artery disease Easy bruising Elevated PSA Epistaxis Essential (primary) hypertension Excessive bleeding Former smoker History of colon cancer History of ST elevation myocardial infarction (STEMI) (05/27/07) Hyperlipidemia Hypoxia Insomnia Iron deficiency Kidney stones Left inguinal hernia Low back pain Myocardial infarct 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) On home oxygen therapy Partial bowel obstruction Personal history of other malignant neoplasm of rectum, rectosigmoid junction, and anus Prostate CA Short bowel syndrome Sinus bradycardia 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 classification Tachycardia Therapeutic drug monitoring Trigger finger Wears glasses Home Medications fluticasone propionate 50 mcg/actuation nasal spray,suspension 1 spray intranasal BID congestion 05/09/20 [History Last Taken 07/24/22] garlic 2,000 mg capsule 2,000 mg PO DAILY 06/12/21 [History Last Taken 07/24/22] albuterol sulfate 90 mcg/actuation aerosol inhaler (Ventolin HFA) 2 puff inhalation Q4H PRN shortness of breath or wheezing #18 grams 07/02/21 [Rx Last Taken Unknown] formoterol fumarate 20 mcg/2 mL solution for nebulization (Perforomist) 2 ml inhalation Q12H copd #120 mL 12/25/21 [Rx Last Taken 07/23/22] clopidogrel 75 mg tablet 75 mg PO QHS blood thinner #90 tabs 01/08/22 [Rx Last Taken 07/24/22] budesonide 0.5 mg/2 mL suspension for nebulization 0.5 mg (2 mL) inhalation Q12H copd #180 mL 03/25/22 [Rx Last Taken 07/23/22] verapamil 240 mg tablet,extended release 240 mg PO QHS heart #90 tabs 04/28/22 [Rx Last Taken 07/24/22] ascorbic acid (vitamin C) 1,000 mg capsule 1 g PO DAILY 04/30/22 [History Last Taken 07/24/22] cholecalciferol (vitamin D3) 250 mcg (10,000 unit) capsule 250 mcg PO DAILY 04/30/22 [History Last Taken 07/24/22] glutamine 500 mg tablet (L-Glutamine) 500 mg PO BID 04/30/22 [History Last Taken 07/24/22] glutathione 500 mg capsule 50 mg PO DAILY SUPPLEMENT 04/30/22 [History Last Taken 07/24/22] lactobacillus combination no.9 4 billion cell capsule (Adult 50 Plus Probiotic) 4,000 mmu cells PO DAILY 04/30/22 [History Last Taken 07/24/22] magnesium 250 mg tablet 250 mg PO DAILY 04/30/22 [History Last Taken 07/24/22] multivitamin 2 tab PO DAILY 04/30/22 [History Last Taken 07/24/22] turmeric 400 mg capsule 400 mg PO DAILY SUPPLEMENT 04/30/22 [History Last Taken 07/24/22] vitamin B complex 1 cap PO DAILY 04/30/22 [History Last Taken 07/24/22] mirtazapine 15 mg tablet 15 mg PO QHS #90 tabs 08/17/22 [Rx Last Taken Unknown] mirtazapine 7.5 mg tablet 7.5 mg PO QHS #90 tabs 08/17/22 [Rx Last Taken Unk nown] tamsulosin 0.4 mg capsule 0.4 mg PO QHS prostate #90 caps 10/13/22 [Rx Last Taken Unknown] levofloxacin 750 mg tablet 750 mg PO Q24H 7 days #7 tabs 10/28/22 [Rx Last Taken Unknown] prednisone 20 mg tablet 60 mg (3 x 20 mg) PO QDAY #15 tabs 10/28/22 [Rx Last Taken Unknown] Allergy/AdvReac Type Severity Reaction Status Date / Time aspirin Allergy Shortness Verified 10/26/22 13:53 of breath adhesive AdvReac Rash Verified 10/26/22 13:53 amoxicillin trihydrate AdvReac Other Verified 10/26/22 13:53 [From Augmentin] atorvastatin calcium AdvReac leg cramps Verified 10/26/22 13:53 [From Lipitor] isopropyl alcohol AdvReac Rash Verified 10/26/22 13:53 metoprolol succinate AdvReac Rash Verified 10/26/22 13:53 [From Toprol XL] naproxen [From Naprosyn] AdvReac Shortness Verified 10/26/22 13:53 of breath paroxetine HCl [From Paxil] AdvReac Unknown Verified 10/26/22 13:53 potassium clavulanate AdvReac tingling Verified 10/26/22 13:53 [From Augmentin] all over propoxyphene HCl AdvReac Unknown Verified 10/26/22 13:53 [From Darvon] sertraline HCl [From Zoloft] AdvReac Unknown Verified 10/26/22 13:53 simvastatin [From Zocor] AdvReac Unknown Verified 10/26/22 13:53 tiotropium bromide AdvReac Other Verified 10/26/22 13:53 [From Spiriva with HandiHaler] Family History Father Heart disease Hypertension High cholesterol CVA (cerebral vascular accident) Mother Dementia Surgical History H/O hernia repair History of coronary artery stent placement (06/07/20) History of endovascular stent graft for abdominal aortic aneurysm (AAA) (06/25/20) History of esophagogastroduodenoscopy (EGD) History of left heart catheterization (05/24/20) History of left inguinal hernia repair (06/2021) history of right eye surgery History of right inguinal hernia repair History of tonsillectomy History of tonsillectomy and adenoidectomy Hx of appendectomy Hx of bilateral cataract extraction Hx of colonoscopy Hx of sinus surgery Hx of thumb surgery Hx of umbilical hernia repair Status post laparoscopic colectomy Social History Smoking Status: Former smoker pack-years: 67 second hand exposure: No alcohol intake: current alcohol intake frequency: other Alcohol type: beer details: Previous nightly drinker. Stopped 2021 substance use type: does not use caffeine: Yes Type: coffee Number of servings: 4 what type of physical activity do you participate in: other details: pulmonary rehab frequency: 3-4 times per week ROS ROS ED ROS Narrative Denies Review of Systems ROS Unobtainable: Denies due to encephalopathy Constitutional Constitutional ED: Denies chills or fever(s) Eyes Eyes: Denies blurry vision ENT ENT ED: Denies ear pain Cardiovascular Cardiovascular: Reports chest pain Respiratory/Chest Respiratory/Chest: Denies cough or dyspnea Gastrointestinal Gastrointestinal: Reports diarrhea; Denies constipation, melena, nausea or vomiting Genitourinary Genitourinary ED: Denies dysuria or hematuria Musculoskeletal Musculoskeletal: Denies arthralgias Integumentary Denies abscess or Abrasions Neurologic Neurologic: Denies headache(s) Psychiatric Psychiatric: Denies anxiety Endocrine Endocrinology: Denies cold intolerance Hematologic/Lymphatic Hematologic/Lymphatic: Reports none Allergic/Immunologic Allergic/Immunologic ED: Denies mouth swelling or tongue swelling EXAM Physical Exam Narrative Exam Narrative: 69-year-old male no acute distress. Vital signs stable. Afebrile. His initial blood pressure was 188/111. When I entered the room he was 182/79. He does not look septic toxic or in any distress. Currently he is not having any chest pain. H EENT exam unremarkable. Neck nontender. Lungs are clear. Heart regular rhythm rate about 80 no murmur. Chest wall nontender. Abdomen is soft and nontender. Moving all 4 extremities. Calves nontender without edema or cords. Equal symmetrical radial pulses. Neurologically is awake alert with no focal motor deficits. Const Vital Signs: 11/01/22 08:10 11/01/22 08:17 11/01/22 10:18 Temperature 97.8 F Temperature Source Oral Pulse Rate 87 81 Respiratory Rate 16 16 Respiratory Effort Normal Respiratory Pattern Normal Blood Pressure 188/111 H 182/99 H Blood Pressure Mean 136 126 Pulse Ox 96 95 Oxygen Delivery Method Room Air Room Air 11/01/22 11:15 11/01/22 11:16 Temperature Temperature Source Pulse Rate 81 Respiratory Rate 18 Respiratory Effort Respiratory Pattern Blood Pressure 113/81 H Blood Pressure Mean 91 Pulse Ox 98 Oxygen Delivery Method Room Air Room Air Positive well nourished and well developed; Negative for obese, cachectic, contractures or unkempt General Appearance ED: well developed and NAD; Negative for unkempt, cachectic, contractures, cyanotic, diaphoretic or pallor Nutritional Appearance: Negative for cachectic or obese HEENT Reports moist mucous membranes; Denies dry mucous membranes Negative for trauma or tenderness Mouth ED: No dry mucous membranes Mouth: No dry mucous membranes Eyes PERRL and EOMs intact bilaterally General Eye ED: Negative for pale conjunctiva, scleral icterus or other Neck no lymphadenopathy, supple and no JVD General: Negative for tenderness Lymph Lymphatic: Negative for other Chest Wall inspection of chest normal and palpation of chest normal Chest: Negative for other Resp normal respiratory effort and clear to auscultation bilaterally Effort and Inspection: Negative for retractions Auscultation: Negative for rales, rhonchi or wheezes Cardio regular rate, regular rhythm, S1 normal heart sound, S2 normal heart sound and no murmurs Palpation: Negative for palpable S3 Rate: Negative for bradycardia Rhythm: Negative for abnormal rhythm GI normal to inspection, nondistended, normoactive bowel sounds, non-tender, non- distended and no masses Inspection: Negative for abdominal distention Auscultation: normoactive bowel sounds Palpation: soft; Negative for tender or guarding Back/Spine no CVA tenderness General Back: Negative for CVA tenderness Cervical Spine: Negative for cervical spine tenderness Thoracic Spine / Upper Back: Negative for thoracic spinal tenderness Lumbar Spine / Lower Back: Negative for lumbar spinal tenderness Extremity normal to inspection General Extremety ED: Negative for edema or tenderness General Extremity: Negative for edema Neuro oriented x3, CN's II-XII intact bilaterally and no sensory deficits noted Sensorium / Orientation: alert; Negative for orientation impaired, lethargic or stuporous Sensory Exam: No sensory level loss detected Motor Exam: strength 5/5 throughout; Negative for general weakness Psych mental status grossly normal Appearance: Negative for unkempt Attitude: No agitated Mood & Affect: Negative for depressed, anxious or tearful Skin no rashes or lesions noted, no wounds and skin turgor normal General Skin Exam: Negative for jaundice or pallor Lesions: No lesion noted Rashes: No rashes noted Trauma: Negative for abrasion Wounds: Negative for wounds noted MDM MDM MDM Narrative Medical decision making narrative: 77-year-old male with atypical nonexertional chest pain and elevated blood pressure. The chest pain does not sound cardiac. Undergo cardiac work-up. We will watch his blood pressure he does not need a acutely lowered at this time. Repeat exam at 1:10 PM patient is doing well. Pain-free. Blood pressure is 171/98. I discussed with both the patient and his son at bedside they did not want to be started on blood pressure medication at this time. He should have follow-up with either his primary care physician or his soil technician Dr. Christiano Steinberg to see if they want to start him on any medications. He said his primary care physician has been talking to them about that. He was on them in the past but his pressure was running too low. Patient will log his blood pressures twice daily and follow-up. He knows to return if feeling worse. History & Record Review Discussion w/independent historian: Patient Lab Data Attestation: I reviewed the patient's lab results. Lab results narrative: CBC unremarkable. White count of 10. H&H 14 and 42. Platelets 345. Chemistries show potassium 3.1 a gap of 5. BUN and creatinine 29 and 1.52. Troponin is 32. Compared to prior all labs these are unremarkable. He has a chronic renal insufficiency. Labs: Laboratory Results - last 24 hr 11/01/22 11:10 WBC 10.4 RBC 4.81 Hgb 14.0 Hct 42.5 MCV 88.4 MCH 29.1 MCHC 32.9 RDW Std Deviation 48.8 H RDW Coeff of Kylee 15.0 H Plt Count 345 MPV 10.3 Immature Gran % (Auto) 0.600 Neut % (Auto) 71.8 H Lymph % (Auto) 16.9 L [place] % (Auto) 8.6 Eos % (Auto) 1.6 Baso % (Auto) 0.5 Absolute Neuts (auto) 7.4 Absolute Lymphs (auto) 1.75 Nucleated RBC % 0 Sodium 142 Potassium 3.1 L Chloride 108 H Carbon Dioxide 29.0 Anion Gap 5 BUN 29 H Creatinine 1.52 H Estim Creat Clear Calc 37.45 Est GFR (MDRD) Af Amer 57 L Est GFR (MDRD) Non-Af 47 L BUN/Creatinine Ratio 19.1 Glucose 88 Calcium 9.5 Troponin I High Sens 32 Radiography Chest X-Ray - ED: 1 View, Read by ED Physician, Read by Radiologist, Heart, Lungs, Mediastinum, Bony Structures, No Acute Disease and Chronic Changes Diagnostic Testing: Clinical Impression(s) from Imaging Studies Chest X-Ray 11/01/22 10:55 IMPRESSION: COPD changes. No active pulmonary disease. Electronically Signed: Mesfin Villarreal MD at 12:11 EDT , Chest x-ray chronic changes. No acute process. Normal cardiac silhouette mediastinum. No infiltrates. Interpreted both by myself and the radiologist. Rhythm Strip Rhythm Strip: Sinus Rhythm Rate: 78 Ectopy: None EKG Initial EKG: Attestation: I personally reviewed and interpreted this EKG as follows: Interpretation: Sinus Rhythm and No Acute Injury Pattern Comments: Normal sinus rhythm rate of 78 no acute signs of UT or ischemia. Discharge Plan Triage Chief Complaint: Hypertension ED Provider: Thomas Oropeza Dx/Rx/DC Orders Clinical Impression: History of renal insufficiency, Chest pain, Hypertension Instructions: ED Chest Pain, Uncertain Cause, ED Hypertension, To Be Confirmed Prescriptions: No Action fluticasone propionate 50 mcg/actuation spray,suspension 1 spray INTRANASAL BID Rx Instructions: administer into each nostril multivitamin Tablet 2 tab PO DAILY magnesium 250 mg tablet 250 mg PO DAILY L-Glutamine 500 mg tablet 500 mg PO BID vitamin B complex Capsule 1 cap PO DAILY cholecalciferol (vitamin D3) 250 mcg (10,000 unit) capsule 250 mcg PO DAILY ascorbic acid (vitamin C) 1,000 mg capsule 1 g PO DAILY glutathione 500 mg capsule 50 mg PO DAILY Adult 50 Plus Probiotic 4 billion cell capsule 4,000 mmu cells PO DAILY Rx Instructions: administer with a meal turmeric 400 mg capsule 400 mg PO DAILY garlic 2,000 mg Capsule 2,000 mg PO DAILY albuterol sulfate [Ventolin HFA] 90 mcg/actuation HFA aerosol inhaler 2 puff inhalation Q4H PRN (Reason: shortness of breath or wheezing) Qty: 18 6RF formoterol fumarate [Perforomist] 20 mcg/2 mL solution for nebulization 2 ml inhalation Q12H Qty: 120 11RF clopidogrel 75 mg tablet 75 mg PO QHS Qty: 90 3RF Patient Comments: STOPPING 3 DAYS PRIOR budesonide 0.5 mg/2 mL suspension for nebulization 0.5 mg INHALATION Q12H Qty: 180 11RF verapamil 240 mg tablet extended release 240 mg PO QHS Qty: 90 3RF mirtazapine 7.5 mg tablet 7.5 mg PO QHS Qty: 90 3RF Rx Instructions: Take a 15 mg tablet for total nightly dose of 22.5mg QHS mirtazapine 15 mg tablet 15 mg PO QHS Qty: 90 3RF tamsulosin 0.4 mg capsule 0.4 mg PO QHS Qty: 90 1RF prednisone 20 mg tablet 60 mg PO QDAY Qty: 15 0RF Rx Instructions: administer with food or milk levofloxacin 750 mg tablet 750 mg PO Q24H 7 Days Qty: 7 0RF Primary Care Provider: Krystyna Sanchez Referrals: Krystyna Sanchez MD [Primary Care Provider] - 1 Week Activity Restrictions/Additional Instructions: Log your blood pressure daily and follow-up with either Dr. Christiano Steinebrg or Dr Sanchez to determine if they want to start you on a blood pressure medication. Disposition Disposition: Home, Self Care
--- NOTE | 2022-11-01 08:55 | EKG12_ITS ---
Test Reason : CP Blood Pressure : / mmHG Vent. Rate : 078 BPM Atrial Rate : 078 BPM P-R Int : 148 ms QRS Dur : 082 ms QT Int : 378 ms P-R-T Axes : 072 -20 073 degrees QTc Int : 430 ms Normal sinus rhythm Septal infarct , age undetermined Abnormal ECG Confirmed by PREMA RODRIGUEZ, BENEDICT ([id number]), photo editor CHELSEA HASSAN ([id number]) on 11/04/2022 11:42:44 AM Referred By: RUBIA Confirmed By:CHASTITY LLOYD MD
--- NOTE | 2022-11-01 09:01 | ED.RN ---
Patient ambulatory to bathroom, gait steady.
[2022-11-01] MEDS: Loperamide 2 MG Capsule PO (10:17)
[2022-11-01 10:18] VITALS: BP 182/99; PULSE 81; RESP 16; O2SAT 95
--- NOTE | 2022-11-01 10:55 | RAD_ITS ---
INDICATION: chest pain EXAMINATION/TECHNIQUE: X-RAY - XR Chest 1 View COMPARISON: 08/08/2022. FINDINGS: LINES/DEVICES: None. LUNGS: COPD changes essentially unchanged. No new infiltrate is seen. No evidence of pleural effusions. MEDIASTINUM AND CARDIOVASCULAR STRUCTURES: Cardiac silhouette not enlarged. Central airways and mediastinal contour are unremarkable. Atherosclerotic calcifications of the aortic arch. BONES AND SOFT TISSUES: Stable soft tissues and osseous structures. RAD/Chest 1 View (Portable) IMPRESSION: COPD changes. No active pulmonary disease. Electronically Signed: Mesfin Villarreal MD at 12:11 EDT ,
[2022-11-01 11:16] VITALS: BP 113/81; PULSE 81; RESP 18; O2SAT 98
[2022-11-01 11:20] LABS: Absolute Lymphocyte Count 1.75 X10^3/uL (0.83-4.51); Absolute Neutrophil Count 7.4 X10^3/uL (2.0-7.7); Basophil# 0.05 X10^3/uL; Basophil% 0.5 % (0-1); Eosinophil# 0.17 X10^3/uL; Eosinophils% 1.6 % (0-5); Hematocrit 42.5 % (40-54); Lymphocyte # 1.75 X10^3/ul (0.83-4.51); Lymphocyte % 16.9 % (19-41); Mean Corp Hgb Conc 32.9 g/dL (32-36); Mean Corpuscular Hgb 29.1 pg (27.0-32.0); Mean Corpuscular Volume 88.4 fL (80-94); Mean Platelet Vol. 10.3 fl (6.2-12.0); Monocyte# 0.89 X10^3/uL; Monocyte% 8.6 % (0-10); NRBC Flagged by Analyzer 0 % (0-5); Neutrophil # 7.44 X10^3/uL (2.7-7.7); Neutrophil % 71.8 % (47-70); Platelet Count 345 K/mm3 (150-450); RBC Distribution Width SD 48.8 fl (35.1-43.9); Red Blood Count 4.81 M/mm3 (4.6-6.2); White Blood Count 10.4 K/mm3 (4.4-11.0)
[2022-11-01 11:39] LABS: Anion Gap 5 (5-15); BUN 29 mg/dL (7-18); BUN/Creat Ratio 19.1 RATIO (10-20); Calcium,Total 9.5 mg/dL (8.5-10.1); Chloride 108 mmol/L (98-107); Creatinine, Serum 1.52 mg/dL (0.70-1.30); EST Glomerular Filtration Rate 47 mL/min (>60); Est Glom Filt Rate - Afr Amer 57 mL/min (>60); Estimated Creatinine Clearance 37.45 ml/min; Glucose 88 mg/dL (74-106); Potassium 3.1 mmol/L (3.5-5.1); Sodium Level 142 mmol/L (136-145); Troponin-I HS 32 pg/mL (3.0-78.0)
[2022-11-01 13:42] VITALS: BP 171/98; PULSE 80; RESP 18; O2SAT 98
== END 2022-11-01 13:43 | disposition home or self-care (01) ==
PROVIDERS: Emergency Provider Emergency Medicine; PCP Internal Medicine; Visit Provider Emergency Medicine
DX: R07.9 Chest pain, unspecified (principal); J44.9 Chronic obstructive pulmonary disease, unspecified; E78.5 Hyperlipidemia, unspecified; Z87.891 Personal history of nicotine dependence; I25.10 Atherosclerotic heart disease of native coronary artery without angina pectoris; I10 Essential (primary) hypertension; I25.2 Old myocardial infarction; Z95.5 Presence of coronary angioplasty implant and graft
CPT/HCPCS: 36415; 71045; 80048; 84484; 85025; 93005; 99285

== ENCOUNTER 2022-11-14 02:06 | Inpatient (IN) | payer MEDICARE, OTHER, SELFPAY ==
[2022-11-14] VITALS (11 sets, daily range): BP systolic 118–159; BP diastolic 69–95; PULSE 65–93; RESP 12–27; TEMP 36.4–36.8; O2SAT 79–97; BMI 24.0; BMI 22.4
--- NOTE | 2022-11-14 02:10 | RAD_ITS ---
INDICATION: chest pain EXAMINATION/TECHNIQUE: X-RAY - XR Chest 1 View COMPARISON: 11/01/2022. FINDINGS: LINES/DEVICES: None. LUNGS: No consolidation or evidence of an effusion. No evidence of edema or a pneumothorax. Severe emphysematous changes. MEDIASTINUM AND CARDIOVASCULAR STRUCTURES: Cardiac silhouette is normal in size and contour. Mediastinum is unremarkable. BONES AND SOFT TISSUES: No acute abnormality. RAD/Chest 1 View (Portable) IMPRESSION: No evidence of acute cardiopulmonary disease. Electronically Signed: Brannon Degroot DO at 2:44 EDT ,
[2022-11-14 02:21] LABS: Absolute Lymphocyte Count 1.74 X10^3/uL (0.83-4.51); Absolute Neutrophil Count 5.8 X10^3/uL (2.0-7.7); Basophil# 0.07 X10^3/uL; Basophil% 0.8 % (0-1); Eosinophil# 0.77 X10^3/uL; Eosinophils% 8.5 % (0-5); Hematocrit 42.6 % (40-54); Lymphocyte # 1.74 X10^3/ul (0.83-4.51); Lymphocyte % 19.2 % (19-41); Mean Corp Hgb Conc 32.9 g/dL (32-36); Mean Corpuscular Hgb 29.4 pg (27.0-32.0); Mean Corpuscular Volume 89.3 fL (80-94); Mean Platelet Vol. 10.2 fl (6.2-12.0); Monocyte# 0.67 X10^3/uL; Monocyte% 7.4 % (0-10); NRBC Flagged by Analyzer 0 % (0-5); Neutrophil # 5.79 X10^3/uL (2.7-7.7); Neutrophil % 63.8 % (47-70); Platelet Count 336 K/mm3 (150-450); RBC Distribution Width CV 15.3 % (11.6-14.6); RBC Distribution Width SD 50.1 fl (35.1-43.9); Red Blood Count 4.77 M/mm3 (4.6-6.2); White Blood Count 9.1 K/mm3 (4.4-11.0)
[2022-11-14 02:46] LABS: Anion Gap 7 (5-15); BUN 23 mg/dL (7-18); BUN/Creat Ratio 12.9 RATIO (10-20); Chloride 106 mmol/L (98-107); Creatinine, Serum 1.78 mg/dL (0.70-1.30); EST Glomerular Filtration Rate 39 mL/min (>60); Est Glom Filt Rate - Afr Amer 48 mL/min (>60); Estimated Creatinine Clearance 31.98 ml/min; Glucose 107 mg/dL (74-106); Potassium 3.5 mmol/L (3.5-5.1); Sodium Level 142 mmol/L (136-145); Troponin-I HS (w/2H Reflex) 47 pg/mL (3.0-78.0)
[2022-11-14 02:57] LABS: Prothrombin Time (Protime)PT. 13.1 SECONDS (11.7-14.9)
[2022-11-14 04:18] LABS: Reflex Troponin-HS? (from REC) Y
[2022-11-14 05:00] LABS: Troponin-I HS 456 pg/mL (3.0-78.0)
--- NOTE | 2022-11-14 05:11 | EDS_ITS ---
HPI History of Present Illness Chief Complaint: Chest Pain Informant: patient and EMS Narrative Narrative: Patient is a 77-year-old male with past medical history of coronary artery disease with previous stents with reported last stent being placed 2 years ago. He also has history of hypertension hyperlipidemia and COPD. Patient states that he was sleeping when he awoke with midsternal chest discomfort described as a pressure. He states there was slight radiation to the left and right but otherwise there is no associated nausea vomiting diaphoresis or shortness of breath. Patient states that this sensation was similar to his previous heart attacks and therefore EMS was called to bring the patient in for evaluation. [facility] Medical History AAA (abdominal aortic aneurysm) Abdominal aortic aneurysm (AAA) greater than 5.5 cm in diameter in male Alcohol abuse Allergy to dog dander Anemia Arthritis Asthma Atherosclerotic heart disease of [place] coronary artery without angina pectoris Back pain BPH (benign prostatic hyperplasia) Bronchiectasis Cancer Complete small bowel obstruction COPD (chronic obstructive pulmonary disease) Coronary artery disease Easy bruising Elevated PSA Epistaxis Essential (primary) hypertension Excessive bleeding Former smoker History of colon cancer History of ST elevation myocardial infarction (STEMI) (05/27/07) Hyperlipidemia Hypoxia Insomnia Iron deficiency Kidney stones Left inguinal hernia Low back pain Myocardial infarct 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) On home oxygen therapy Partial bowel obstruction Personal history of other malignant neoplasm of rectum, rectosigmoid junction, and anus Prostate CA Short bowel syndrome Sinus bradycardia 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 classification Tachycardia Therapeutic drug monitoring Trigger finger Wears glasses Home Medications fluticasone propionate 50 mcg/actuation nasal spray,suspension 1 spray intranasal BID congestion 05/09/20 [History Last Taken 07/24/22] garlic 2,000 mg capsule 2,000 mg PO DAILY 06/12/21 [History Last Taken 07/24/22] albuterol sulfate 90 mcg/actuation aerosol inhaler (Ventolin HFA) 2 puff inhalation Q4H PRN shortness of breath or wheezing #18 grams 07/02/21 [Rx Last Taken Unknown] formoterol fumarate 20 mcg/2 mL solution for nebulization (Perforomist) 2 ml inhalation Q12H copd #120 mL 12/25/21 [Rx Last Taken 07/23/22] clopidogrel 75 mg tablet 75 mg PO QHS blood thinner #90 tabs 01/08/22 [Rx Last Taken 07/24/22] budesonide 0.5 mg/2 mL suspension for nebulization 0.5 mg (2 mL) inhalation Q12H copd #180 mL 03/25/22 [Rx Last Taken 07/23/22] verapamil 240 mg tablet,extended release 240 mg PO QHS heart #90 tabs 04/28/22 [Rx Last Taken 07/24/22] ascorbic acid (vitamin C) 1,000 mg capsule 1 g PO DAILY 04/30/22 [History Last Taken 07/24/22] cholecalciferol (vitamin D3) 250 mcg (10,000 unit) capsule 250 mcg PO DAILY 04/30/22 [History Last Taken 07/24/22] glutamine 500 mg tablet (L-Glutamine) 500 mg PO BID 04/30/22 [History Last Taken 07/24/22] glutathione 500 mg capsule 50 mg PO DAILY SUPPLEMENT 04/30/22 [History Last Take n 07/24/22] lactobacillus combination no.9 4 billion cell capsule (Adult 50 Plus Probiotic) 4,000 mmu cells PO DAILY 04/30/22 [History Last Taken 07/24/22] magnesium 250 mg tablet 250 mg PO DAILY 04/30/22 [History Last Taken 07/24/22] multivitamin 2 tab PO DAILY 04/30/22 [History Last Taken 07/24/22] turmeric 400 mg capsule 400 mg PO DAILY SUPPLEMENT 04/30/22 [History Last Taken 07/24/22] vitamin B complex 1 cap PO DAILY 04/30/22 [History Last Taken 07/24/22] mirtazapine 15 mg tablet 15 mg PO QHS #90 tabs 08/17/22 [Rx Last Taken Unknown] mirtazapine 7.5 mg tablet 7.5 mg PO QHS #90 tabs 08/17/22 [Rx Last Taken Unknown] tamsulosin 0.4 mg capsule 0.4 mg PO QHS prostate #90 caps 10/13/22 [Rx Last Taken Unknown] Allergy/AdvReac Type Severity Reaction Status Date / Time aspirin Allergy Shortness Verified 11/14/22 02:11 of breath adhesive AdvReac Rash Verified 11/14/22 02:11 amoxicillin trihydrate AdvReac Other Verified 11/14/22 02:11 [From Augmentin] atorvastatin calcium AdvReac leg cramps Verified 11/14/22 02:11 [From Lipitor] isopropyl alcohol AdvReac Rash Verified 11/14/22 02:11 metoprolol succinate AdvReac Rash Verified 11/14/22 02:11 [From Toprol XL] naproxen [From Naprosyn] AdvReac Shortness Verified 11/14/22 02:11 of breath paroxetine HCl [From Paxil] AdvReac Unknown Verified 11/14/22 02:11 potassium clavulanate AdvReac tingling Verified 11/14/22 02:11 [From Augmentin] all over propoxyphene HCl AdvReac Unknown Verified 11/14/22 02:11 [From Darvon] sertraline HCl [From Zoloft] AdvReac Unknown Verified 11/14/22 02:11 simvastatin [From Zocor] AdvReac Unknown Verified 11/14/22 02:11 tiotropium bromide AdvReac Other Verified 11/14/22 02:11 [From Spiriva with HandiHaler] Family History Father Heart disease Hypertension High cholesterol CVA (cerebral vascular accident) Mother Dementia Surgical History H/O hernia repair History of coronary artery stent placement (06/07/20) History of endovascular stent graft for abdominal aortic aneurysm (AAA) (06/25/20) History of esophagogastroduodenoscopy (EGD) History of left heart catheterization (05/24/20) History of left inguinal hernia repair (06/2021) history of right eye surgery History of right inguinal hernia repair History of tonsillectomy History of tonsillectomy and adenoidectomy Hx of appendectomy Hx of bilateral cataract extraction Hx of colonoscopy Hx of sinus surgery Hx of thumb surgery Hx of umbilical hernia repair Status post laparoscopic colectomy Social History Smoking Status: Former smoker pack-years: 67 second hand exposure: No alcohol intake: current alcohol intake frequency: other Alcohol type: beer details: Previous nightly drinker. Stopped 2021 substance use type: does not use caffeine: Yes Type: coffee Number of servings: 4 what type of physical activity do you participate in: other details: pulmonary rehab frequency: 3-4 times per week ROS ROS ED Constitutional Constitutional ED: Denies chills or fever(s) ENT ENT ED: Denies sore throat Cardiovascular Cardiovascular: Reports chest pain; Denies palpitations or racing heartbeat Respiratory/Chest Respiratory/Chest: Denies cough or dyspnea Gastrointestinal Gastrointestinal: Denies abdominal pain, diarrhea, nausea or vomiting Genitourinary Genitourinary ED: Denies dysuria Musculoskeletal Musculoskeletal: Denies myalgias Integumentary Denies rash Neurologic Neurologic: Denies headache(s) Hematologic/Lymphatic Hematologic/Lymphatic: Reports easy bleeding and easy bruising EXAM Physical Exam Const Vital Signs: 11/14/22 02:07 11/14/22 02:12 11/14/22 02:13 Temperature 97.6 F L Temperature Source Oral Pulse Rate 90 Respiratory Rate 27 H Respiratory Effort Normal Respiratory Pattern Normal Blood Pressure 159/95 H Blood Pressure Mean 116 Pulse Ox 95 94 Oxygen Delivery Method Room Air Room Air 11/14/22 03:14 11/14/22 04:45 Temperature Temperature Source Pulse Rate 93 71 Respiratory Rate 22 H 16 Respiratory Effort Respiratory Pattern Blood Pressure 118/71 143/69 H Blood Pressure Mean 86 93 Pulse Ox 79 94 Oxygen Delivery Method Room Air Room Air Positive well nourished and well developed General Appearance ED: well developed HEENT HEENT Narrative: Normocephalic atraumatic Eyes PERRL and EOMs intact bilaterally General Eye ED: Negative for scleral icterus Neck supple and no JVD Chest Wall palpation of chest normal Chest Narrative: No bony deformity or crepitance of the chest wall no reproducible pain with palpation. Resp normal respiratory effort Resp Narrative: Breath sounds are diminished throughout with faint expiratory wheeze consistent with history of COPD but no signs of respiratory distress Cardio regular rate and regular rhythm Rate: other Other Details: Radial pulses are plus 2 out of 4 bilaterally are equal and symmetric Carotid pulses equal and symmetric as well GI normal to inspection, nondistended, normoactive bowel sounds, non-tender, non- distended and no masses GI Narrative: No voluntary guarding or rigidity no pulsatile mass or fluid wave Auscultation: normoactive bowel sounds Palpation: soft Extremity normal to inspection Extremity Narrative: No asymmetric edema no pitting edema negative Homans' sign bilaterally Neuro oriented x3 and CN's II-XII intact bilaterally Sensorium / Orientation: alert Psych mental status grossly normal Skin no rashes or lesions noted General Skin Exam: Negative for jaundice MDM MDM MDM Narrative Medical decision making narrative: Patient presented to the ER with stable vitals and reported resolution of his chest pain. He is high risk for an event based on his history of CAD and 8 previous stents. Secondary to this basic blood work was obtained as well as chest x-ray. Chest x-ray revealed no acute lung pathology such as pneumonia pneumothorax or pleural effusion as a cause of his chest discomfort at home. Initial troponin was normal at 47 and EKG revealed just nonspecific ST segment flattening without acute elevation to warrant myocardial infarction. 2-hour delta troponin was obtained based on his significant risk factors and report of spontaneous onset of chest pain at home. Repeat had elevated approximately 400 points to 456 indicating a non-STEMI. Patient was reevaluated at this time and still states that there is no active chest pain. The case was discussed with cardiology on-call and they recommend patient be placed on a heparin drip and s tates that as he has no active chest pain they will most likely cath him on Wednesday. The case was then discussed with the hospitalist as patient will require admission for continued anticoagulation and monitoring and they agreed except the patient for further care at this time. History & Record Review Discussion w/independent historian: EMS personnel and Patient Lab Data Attestation: I reviewed the patient's lab results. Labs: Laboratory Results - last 24 hr 11/14/22 11/14/22 11/14/22 02:10 02:10 02:10 WBC 9.1 RBC 4.77 Hgb 14.0 Hct 42.6 MCV 89.3 MCH 29.4 MCHC 32.9 RDW Std Deviation 50.1 H RDW Coeff of Kylee 15.3 H Plt Count 336 MPV 10.2 Immature Gran % (Auto) 0.300 Neut % (Auto) 63.8 Lymph % (Auto) 19.2 Real % (Auto) 7.4 Eos % (Auto) 8.5 H Baso % (Auto) 0.8 Absolute Neuts (auto) 5.8 Absolute Lymphs (auto) 1.74 Nucleated RBC % 0 PT 13.1 Cancelled INR 1.0 Cancelled APTT 31.6 Sodium 142 Potassium 3.5 Chloride 106 Carbon Dioxide 29.0 Anion Gap 7 BUN 23 H Creatinine 1.78 H Estim Creat Clear Calc 31.98 Est GFR (MDRD) Af Amer 48 L Est GFR (MDRD) Non-Af 39 L BUN/Creatinine Ratio 12.9 Glucose 107 H Calcium 10.0 Magnesium Troponin I High Sens 47 11/14/22 04:10 WBC RBC Hgb Hct MCV MCH MCHC RDW Std Deviation RDW Coeff of Kylee Plt Count MPV Immature Gran % (Auto) Neut % (Auto) Lymph % (Auto) Real % (Auto) Eos % (Auto) Baso % (Auto) Absolute Neuts (auto) Absolute Lymphs (auto) Nucleated RBC % PT INR APTT Sodium Potassium Chloride Carbon Dioxide Anion Gap BUN Creatinine Estim Creat Clear Calc Est GFR (MDRD) Af Amer Est GFR (MDRD) Non-Af BUN/Creatinine Ratio Glucose Calcium Magnesium 2.2 Troponin I High Sens 456 H* Radiography Diagnostic Testing: Clinical Impression(s) from Imaging Studies Chest X-Ray 11/14/22 02:10 IMPRESSION: No evidence of acute cardiopulmonary disease. Electronically Signed: Brannon Degroot DO at 2:44 EDT , Chest x-rays interpreted by the emergency medicine physician reveals no acute infiltrate pneumothorax or pleural effusion Management Discussion w/another healthcare provider: Hospitalist and Monkey Keeper Discharge Plan Dx/Rx/DC Orders Clinical Impression: Acute non-ST elevation myocardial infarction (NSTEMI), Essential (primary) hypertension, Hyperlipidemia, 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 classification Disposition Disposition: Acute Care Hospital [facility] Discharge Date/Time: 11/14/22 06:18
--- NOTE | 2022-11-14 05:12 | HP.PCM.HOS_ITS ---
HPI - General General Date of Admission: 11/14/22 Date of Service: 11/14/22 Chief Complaint: Chest pain. HPI Narrative The patient is a 77 y/o M w/ PMHx: CKD stage III unclear subtype, Hx bowel obstruction, Prostate CA actively undergoing treatments with Dr. Montaño, AAA s/p endovascular repair/stent, Former EtOH abuse, Asthma/COPD w/ chronic hypoxic respiratory failure (3L NC q HS), CAD s/p PCI, BPH, HTN, HLD, CAD s/p PCI x 8 most recently [address] Steinberg who presents to the [facility] ED on 11/14/22 with history of onset midsternal chest pain awakening him from sleep described as a tightness, starting ~ 4 hours prior to ED arrival, rated 10/10 with no diaphoresis, dyspnea, nausea or emesis prompting EMS call. Does report that the day prior to this onset he did have some chest discomfort which came on suddenly while at rest with no associated dyspnea, diaphoresis, nausea or emesis and abated. He does not normally have any chest pain at baseline since his prior PCI necessity. In the ED chest pain resolved. Work-up in the ED included T97.6, heart rate 90, BP 159/95, respiratory rate 27, 95% on room air with most recent vital signs heart rate 71, BP 143/69, respiratory rate 16, 94% on room air, CBC with WBC 9.1, hemoglobin 14, platelet 236 without marked shift, unremarkable coags with INR 1.0, PT 13.1, BMP with BUN/creatinine 23/1.78, glucose 107, troponin initial 47 with repeat delta 457, chest x-ray with no ac david cardiopulmonary findings, EKG upon ED presentation with SR with mild ST segment flattening in the lateral leads. In the ED patient initiated on a heparin drip and case was discussed per ED physician with inkjet operator Dr. Gallegos with noted possible catheterization Wednesday if remain chest pain-free. [facility] Medical History AAA (abdominal aortic aneurysm) Abdominal aortic aneurysm (AAA) greater than 5.5 cm in diameter in male Alcohol abuse Allergy to dog dander Anemia Arthritis Asthma Atherosclerotic heart disease of [place] coronary artery without angina pectoris Back pain BPH (benign prostatic hyperplasia) Bronchiectasis Cancer Complete small bowel obstruction COPD (chronic obstructive pulmonary disease) Coronary artery disease Easy bruising Elevated PSA Epistaxis Essential (primary) hypertension Excessive bleeding Former smoker History of colon cancer History of ST elevation myocardial infarction (STEMI) (05/27/07) Hyperlipidemia Hypoxia Insomnia Iron deficiency Kidney stones Left inguinal hernia Low back pain Myocardial infarct 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) On home oxygen therapy Partial bowel obstruction Personal history of other malignant neoplasm of rectum, rectosigmoid junction, and anus Prostate CA Short bowel syndrome Sinus bradycardia 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 classification Tachycardia Therapeutic drug monitoring Trigger finger Wears glasses Home Medications fluticasone propionate 50 mcg/actuation nasal spray,suspension 1 spray intranasal BID congestion 05/09/20 [History Last Taken 07/24/22] garlic 2,000 mg capsule 2,000 mg PO DAILY 06/12/21 [History Last Taken 07/24/22] albuterol sulfate 90 mcg/actuation aerosol inhaler (Ventolin HFA) 2 puff inhalation Q4H PRN shortness of breath or wheezing #18 grams 07/02/21 [Rx Last Taken Unknown] formoterol fumarate 20 mcg/2 mL solution for nebulization (Perforomist) 2 ml inhalation Q12H copd #120 mL 12/25/21 [Rx Last Taken 07/23/22] clopidogrel 75 mg tablet 75 mg PO QHS blood thinner #90 tabs 01/08/22 [Rx Last Taken 07/24/22] budesonide 0.5 mg/2 mL suspension for nebulization 0.5 mg (2 mL) inhalation Q12H copd #180 mL 03/25/22 [Rx Last Taken 07/23/22] verapamil 240 mg tablet,extended release 240 mg PO QHS heart #90 tabs 04/28/22 [ Rx Last Taken 07/24/22] ascorbic acid (vitamin C) 1,000 mg capsule 1 g PO DAILY 04/30/22 [History Last Taken 07/24/22] cholecalciferol (vitamin D3) 250 mcg (10,000 unit) capsule 250 mcg PO DAILY 04/30/22 [History Last Taken 07/24/22] glutamine 500 mg tablet (L-Glutamine) 500 mg PO BID 04/30/22 [History Last Taken 07/24/22] glutathione 500 mg capsule 50 mg PO DAILY SUPPLEMENT 04/30/22 [History Last Taken 07/24/22] lactobacillus combination no.9 4 billion cell capsule (Adult 50 Plus Probiotic) 4,000 mmu cells PO DAILY 04/30/22 [History Last Taken 07/24/22] magnesium 250 mg tablet 250 mg PO DAILY 04/30/22 [History Last Taken 07/24/22] multivitamin 2 tab PO DAILY 04/30/22 [History Last Taken 07/24/22] turmeric 400 mg capsule 400 mg PO DAILY SUPPLEMENT 04/30/22 [History Last Taken 07/24/22] vitamin B complex 1 cap PO DAILY 04/30/22 [History Last Taken 07/24/22] mirtazapine 15 mg tablet 15 mg PO QHS #90 tabs 08/17/22 [Rx Last Taken Unknown] mirtazapine 7.5 mg tablet 7.5 mg PO QHS #90 tabs 08/17/22 [Rx Last Taken Unknown] tamsulosin 0.4 mg capsule 0.4 mg PO QHS prostate #90 caps 10/13/22 [Rx Last Taken Unknown] Allergy/AdvReac Type Severity Reaction Status Date / Time aspirin Allergy Shortness Verified 11/14/22 02:11 of breath adhesive AdvReac Rash Verified 11/14/22 02:11 amoxicillin trihydrate AdvReac Other Verified 11/14/22 02:11 [From Augmentin] atorvastatin calcium AdvReac leg cramps Verified 11/14/22 02:11 [From Lipitor] isopropyl alcohol AdvReac Rash Verified 11/14/22 02:11 metoprolol succinate AdvReac Rash Verified 11/14/22 02:11 [From Toprol XL] naproxen [From Naprosyn] AdvReac Shortness Verified 11/14/22 02:11 of breath paroxetine HCl [From Paxil] AdvReac Unknown Verified 11/14/22 02:11 potassium clavulanate AdvReac tingling Verified 11/14/22 02:11 [From Augmentin] all over propoxyphene HCl AdvReac Unknown Verified 11/14/22 02:11 [From Darvon] sertraline HCl [From Zoloft] AdvReac Unknown Verified 11/14/22 02:11 simvastatin [From Zocor] AdvReac Unknown Verified 11/14/22 02:11 tiotropium bromide AdvReac Other Verified 11/14/22 02:11 [From Spiriva with HandiHaler] Family History Father Heart disease Hypertension High cholesterol CVA (cerebral vascular accident) Mother Dementia Surgical History H/O hernia repair History of coronary artery stent placement (06/07/20) History of endovascular stent graft for abdominal aortic aneurysm (AAA) (06/25/20) History of esophagogastroduodenoscopy (EGD) History of left heart catheterization (05/24/20) History of left inguinal hernia repair (06/2021) history of right eye surgery History of right inguinal hernia repair History of tonsillectomy History of tonsillectomy and adenoidectomy Hx of appendectomy Hx of bilateral cataract extraction Hx of colonoscopy Hx of sinus surgery Hx of thumb surgery Hx of umbilical hernia repair Status post laparoscopic colectomy Social History Smoking Status: Former smoker pack-years: 67 second hand exposure: No alcohol intake: current alcohol intake frequency: other Alcohol type: beer details: Previous nightly drinker. Stopped 2021 substance use type: does not use caffeine: Yes Type: coffee Number of servings: 4 what type of physical activity do you participate in: other details: pulmonary rehab frequency: 3-4 times per week ROS ROS Narrative Admission Review of Systems: CONSTITUTIONAL: No weight loss, fever, chills, + weakness or fatigue. HEENT: Eyes: No visual loss, blurred vision, double vision or yellow sclerae. Ears, Nose, Throat: No hearing loss, sneezing, congestion, runny nose or sore throat. SKIN: No rash or itching, lesions, wounds. CARDIOVASCULAR: + chest pain, chest pressure or chest discomfort, No palpitations, edema, orthopnea, syncopal events. RESPIRATORY: + Chronic shortness of breath, occasional cough without marked sputum, occasional wheezing, No hemoptysis. GASTROINTESTINAL: No anorexia, nausea, vomiting or diarrhea, abdominal pain, melena, BRBPR. GENITOURINARY: No dysuria, frequency, urgency or retention. NEUROLOGICAL: No headache, dizziness, syncope, paralysis, ataxia, numbness or tingling in the extremities, focal weakness, change in bowel or bladder control, seizure. MUSCULOSKELETAL: + muscle, back pain, joint pain or stiffness. HEMATOLOGIC: + Easy bleeding or bruising. LYMPHATICS: No enlarged nodes. No history of splenectomy. PSYCHIATRIC: No history of depression or anxiety. ENDOCRINOLOGIC: No reports of sweating, cold or heat intolerance. No polyuria or polydipsia. ALLERGIES: No history of asthma, hives, eczema or rhinitis. Vital Signs Vital Signs Vital Signs: 11/14/22 02:07 11/14/22 02:12 11/14/22 02:13 Temperature 97.6 F L Temperature Source Oral Pulse Rate 90 Respiratory Rate 27 H Respiratory Effort Normal Respiratory Pattern Normal Blood Pressure 159/95 H Blood Pressure Mean 116 Pulse Ox 95 94 Oxygen Delivery Method Room Air Room Air 11/14/22 03:14 11/14/22 04:45 Temperature Temperature Source Pulse Rate 93 71 Respiratory Rate 22 H 16 Respiratory Effort Respiratory Pattern Blood Pressure 118/71 143/69 H Blood Pressure Mean 86 93 Pulse Ox 79 94 Oxygen Delivery Method Room Air Room Air Weight Weight: 153 lb 3.54 oz Body Mass Index (BMI) 24.0 Physical Exam Narrative Physical Examination: General: Awake, alert, oriented x 3 and cooperative, seated upright in the ED bed in no apparent distress, chest pain remains resolved. Skin: Normal color, normal turgor, no icterus, no cyanosis. HEENT: AT/NC, EOMI, PERRLA, MMM, no carotid bruits or JVD noted. Lungs: Diminished, greater bases, appropriate effort, no rales, ronchi or wheezing. Heart: Regular rate and rhythm; no gallop, rub audible. Abdomen: Soft, NTTP, ND, normal BS, no HSM. Extremities: No cyanosis, clubbing, or edema. Neurological: Patient awake, alert, oriented as noted, cognitive function intact; pupils equally reactive to light and accommodation, cranial nerves II- XII grossly normal, moving all 4 extremities, no focal deficits, strength mildly to moderately global decrease secondary to acute presentation but improved given chest pain resolution. Psychiatric: Affect appears fatigued, no acute evidence of depressive or anxiety feelings. Results Lab / Micro Data 11/14/22 02:10 11/14/22 02:10 Labs: Laboratory Results - last 24 hr 11/14/22 02:10: WBC 9.1, RBC 4.77, Hgb 14.0, Hct 42.6, MCV 89.3, MCH 29.4, MCHC 32.9, RDW Std Deviation 50.1 H, RDW Coeff of Kylee 15.3 H, Plt Count 336, MPV 10.2, Immature Gran % (Auto) 0.300, Neut % (Auto) 63.8, Lymph % (Auto) 19.2, [place] % (Auto) 7.4, Eos % (Auto) 8.5 H, Baso % (Auto) 0.8, Absolute Neuts (auto) 5.8, Absolute Lymphs (auto) 1.74, Nucleated RBC % 0, PT 13.1, INR 1.0, Sodium 142, Potassium 3.5, Chloride 106, Carbon Dioxide 29.0, Anion Gap 7, BUN 23 H, Creatinine 1.78 H, Estim Creat Clear Calc 31.98, Est GFR (MDRD) Af Amer 48 L, Est GFR (MDRD) Non-Af 39 L, BUN/Creatinine Ratio 12.9, Glucose 107 H, Calcium 10.0, Troponin I High Sens 47 11/14/22 04:10: Troponin I High Sens 456 H* Radiology Impression Chest X-Ray 11/14/22 02:10 IMPRESSION: No evidence of acute cardiopulmonary disease. Electronically Signed: Brannon Degroot DO at 2:44 EDT Reading Location ID and State: [facility] / [place] Tel , Service support , Assessment & Plan Assessment/Plan (1) NSTEMI, initial episode of care: PLAN: Plan The patient is a 77 y/o M w/ PMHx: CKD stage III unclear subtype, Hx bowel obstruction, Prostate CA actively undergoing treatments with Dr. Montaño, AAA s/p endovascular repair/stent, Former EtOH abuse, Asthma/COPD w/ chronic hypoxic respiratory failure (3L NC q HS), CAD s/p PCI, BPH, HTN, HLD, CAD s/p PCI x 8 most recently [address] Steinberg who presents to the [facility] ED on 11/14/22 with history of onset midsternal chest pain awakening him from sleep. #1. Chest Pain w/ Acute NSTEMI: EKG upon ED presentation with SR with mild ST segment flattening in the lateral leads, CXR w/ no acute cardiopulmonary findings. Trop elevated, initial 47 with repeat delta 547. Will admit to PCU, maintain on a monitored bed, continue serial cardiac enzymes and EKGs. Obtain magnesium level upon admission. We will continue heparin drip initiated in the ED. Continue medical management w/ plavix given ASA allergy, not on beta- kimberley is on verapamil, statin intolerant. ECHO requested. Cardiology consulted and aware of case noting potential cardiac catheterization if remains chest pain-free Wednesday. FLP in AM. NG, morphine. #2. Chronic Kidney Disease Stage III, unclear subtype: Admission BUN/Cr 23/ 1.78, baseline renal function primarily 1.4-1.8, repeat BMP in AM. #3. CAD: Status post prior PCI, will continue aspirin, not on beta-kimberley therapy as on verapamil, not on statin secondary to allergy, not on JU inhibitor/ARB per most current list but will clarify. #4. History AAA: Status post prior endovascular repair and graft-stent, continue plavix, hypertensive regimen, not on statin therapy secondary to intolerance. #5. Hypertension: Continue home regimen including verapamil, PRN hydralazine. #6. Hyperlipidemia: Noted statin allergy, FLP in AM. #7. Former alcohol abuse: Previous heavy beer intake, reportedly sober since 2021. #8. Former tobacco use: Encourage continued tobacco cessation. #9. Chronic COPD/asthma with chronic hypoxic respiratory failure: We will continue patient home 3 L nasal cannula supplementation nightly, will maintain on ATC budesonide therapy, PRN albuterol, HOB, IS parameters. #10. History of bowel obstruction: Status post partial colectomy, resolved. #11. BPH: We will continue patient home Flomax home regimen. #12. Anxiety and depression: We will continue patient home mirtazapine regimen, clarifying dose. #13. DVT prophylaxis: Continue heparin drip. #14. CODE status: Patient ROXANA is his son Rob and living will is currently in place. Discussed CODE status at length including difference between FULL code, DNR-CCA and DNR-CC status. Following discussions about the differences in these status, requested DNR-CCA, no intubation status. Advanced Care Planning Face to Face Time: 16 minutes. Admission Evaluation Time spent evaluating chart, patient history, patient evaluation, care planning and discussion with specialists: 60 minutes. Charges/Coding Visit Charges Inpatient E&M: 68455 Init Hosp L2 Procedures Hospitalists Procedures: 97051 Advncd Care Plan 30 Min
--- NOTE | 2022-11-14 05:18 | EKG12_ITS ---
Test Reason : AM EKG Blood Pressure : / mmHG Vent. Rate : 078 BPM Atrial Rate : 078 BPM P-R Int : 162 ms QRS Dur : 104 ms QT Int : 428 ms P-R-T Axes : 057 -60 084 degrees QTc Int : 487 ms Normal sinus rhythm Left axis deviation Septal infarct , age undetermined Abnormal ECG When compared with ECG of 15-NOV-2022 00:13, MANUAL COMPARISON REQUIRED, DATA IS UNCONFIRMED Confirmed by TRACY RODRIGUEZ, ANGELES ([id number]), editor trade journal CHELSEA HASSAN ([id number]) on 11/24/2022 7:14:14 AM Referred By: Delma Gonsalves Confirmed By:ANGELES MOLINA MD
[2022-11-14] MEDS: HEPARIN/D5w 25,000 UNITS 25,000 UNITS/250 ML IV.SOLN. 8 UNITS CONT INF (05:33)
[2022-11-14] MEDS: Heparin Injection (Vial) 5,000 UNIT/ML VIAL 4000 UNIT IV (05:33)
[2022-11-14 05:37] LABS: Magnesium 2.2 mg/dL (1.6-2.6)
[2022-11-14 05:39] LABS: Partial Thromboplast Time 31.6 Seconds (24.1-36.2)
--- NOTE | 2022-11-14 07:13 | ECHOD_ITS ---
Reason For Study: NSTEMI Procedure This was a 2D Doppler, Color Flow transthoracic echocardiogram. Exam performed portable in patient room. Left Ventricle Normal LV size. The estimated ejection fraction is 45 %. Mild to moderate segmental systolic dysfunction (see wall motion). Diastolic function is indeterminate. There are regional wall motion abnormalities as specified. Mid-Anterior : Akinetic. Anterior [place] : Akinetic. Mid-anteroseptal : Akinetic. Septal [place] : Akinetic. Mid-inferoseptal : Akinetic. Right Ventricle Normal RV size. Normal systolic function. Atria Normal left atrium. Prominent eustachian valve. Normal right atrium. Mitral Valve Moderate focal mitral valve calcification of the anterior leaflet. There is no mitral valve stenosis. No mitral valve insufficiency. Tricuspid Valve Normal tricuspid valve. Mild (1+) tricuspid valve insufficiency. Right ventricular systolic pressure estimated to be 37 mmHg. Aortic Valve Trisinus/trileaflet aortic valve. Mild diffuse aortic valve thickening. There is no aortic stenosis. Trivial aortic valve insufficiency. Pulmonic Valve The pulmonic valve is not well visualized. Great Vessels Normal aortic root. Pericardium/Pleural No pericardial effusion. MMode/2D Measurements & Calculations LVIDd: 4.2 cm IVSd: 0.91 cm Ao root diam: 3.1 cm LVIDs: 2.7 cm LVPWd: 0.99 cm RVDd: 3.8 cm FS: 35.3 % LAV(MOD-bp): 36.1 ml LVAd ap4: 27.1 cm2 LVAd ap2: 28.0 cm2 LAV(MOD-bp) Indexed: 19.7 ml/m2 LVLd ap4: 8.1 cm LVLd ap2: 7.9 cm LAV(MOD-sp2): 36.6 ml EDV(MOD-sp4): 75.1 ml EDV(MOD-sp2): 82.1 ml LAV(MOD-sp4): 35.8 ml EDV(sp4-el): 76.8 ml EDV(sp2-el): 84.3 ml LVAs ap4: 18.6 cm2 LVAs ap2: 19.5 cm2 LVLs ap4: 7.4 cm LVLs ap2: 7.1 cm ESV(MOD-sp4): 38.3 ml ESV(MOD-sp2): 44.2 ml ESV(sp4-el): 39.3 ml ESV(sp2-el): 45.6 ml EF(MOD-sp4): 49.0 % EF(MOD-sp2): 46.1 % EF(sp4-el): 48.8 % SV(MOD-sp4): 36.8 ml SV(MOD-sp2): 37.9 ml SV(sp4-el): 37.5 ml LA dimension(2D): 3.1 cm LA A4 area: 14.3 cm2 RA A4 area: 14.3 cm2 TAPSE: 2.7 cm Doppler Measurements & Calculations MV E max giovanny: 67.5 cm/sec Lat Peak E' Giovanny: 9.2 cm/sec Med Peak E' Giovanny: 8.5 cm/sec MV A max giovanny: 97.8 cm/sec E/E' lat: 7.3 E/E' med: 8.0 MV E/A: 0.69 Ao V2 max: 119.2 cm/sec LV V1 max: 105.2 cm/sec PA V2 max: 76.3 cm/sec Ao max P.7 mmHg LV V1 max P.4 mmHg Ao V2 mean: 79.7 cm/sec LV V1 mean P.2 mmHg Ao mean P.9 mmHg LV V1 mean: 68.9 cm/sec Ao V2 VTI: 24.0 cm LV V1 VTI: 21.5 cm AV (velocity ratio): 0.90 TR max giovanny: 291.9 cm/sec TR max P.1 mmHg ECHO/Echo Complete Interpretation Summary Diastolic function is indeterminate. The estimated ejection fraction is 45 %. Mild to moderate segmental systolic dysfunction (see wall motion). Mild (1+) tricuspid valve insufficiency. Right ventricular systolic pressure estimated to be 37 mmHg. Trivial aortic valve insufficiency. Ordering Physician: Delma Gonsalves Referring Physician: Krystyna Sanchez Performed By: Laila Turner RDCS
--- NOTE | 2022-11-14 08:39 | PN.HOSP_ITS ---
Reason for Visit Reason for Visit: Diagnoses Non-ST elevation (NSTEMI) myocardial infarction (11/14/22) Subjective Subjective No further chest pain. Objective Data Objective Data Vital Signs: Vital Signs Temp Pulse Resp BP Pulse Ox O2 Del Method 36.8 C 75 16 150/81 H 96 Room Air 11/14/22 06:29 11/14/22 06:29 11/14/22 06:29 11/14/22 06:29 11/14/22 06:29 11/14/22 06:29 Oxygen Delivery Method Room Air Weight: 68.5 kg Body Mass Index (BMI) 22.4 Intake & Output: Intake and Output for Last 24 Hours 11/12/22 11/13/22 11/14/22 23:59 23:59 23:59 Intake Total 500 / 500 Balance 500 / 500 Lab / Micro Data 11/14/22 02:10 11/14/22 02:10 Labs: Laboratory Results - last 24 hr 11/14/22 02:10: WBC 9.1, RBC 4.77, Hgb 14.0, Hct 42.6, MCV 89.3, MCH 29.4, MCHC 32.9, RDW Std Deviation 50.1 H, RDW Coeff of Kylee 15.3 H, Plt Count 336, MPV 10.2, Immature Gran % (Auto) 0.300, Neut % (Auto) 63.8, Lymph % (Auto) 19.2, [place] % (Auto) 7.4, Eos % (Auto) 8.5 H, Baso % (Auto) 0.8, Absolute Neuts (auto) 5.8, Absolute Lymphs (auto) 1.74, Nucleated RBC % 0, PT 13.1 11/14/22 02:10: PT Cancelled, INR 1.0 11/14/22 02:10: INR Cancelled, APTT 31.6, Sodium 142, Potassium 3.5, Chloride 106, Carbon Dioxide 29.0, Anion Gap 7, BUN 23 H, Creatinine 1.78 H, Estim Creat Clear Calc 31.98, Est GFR (MDRD) Af Amer 48 L, Est GFR (MDRD) Non-Af 39 L, BUN/Creatinine Ratio 12.9, Glucose 107 H, Calcium 10.0, Troponin I High Sens 47 11/14/22 04:10: Magnesium 2.2, Troponin I High Sens 456 H* Radiography Diagnostic Testing: Radiology Impression Chest X-Ray 11/14/22 02:10 IMPRESSION: No evidence of acute cardiopulmonary disease. Electronically Signed: Brannon Degroot DO at 2:44 EDT , Physical Exam Const alert and no apparent distress HEENT head/scalp atraumatic and moist oral mucous membranes Resp normal respiratory effort, no retractions, no use of accessory muscles and clear to auscultation bilaterally Cardio regular rate, regular rhythm, S1 normal heart sound and S2 normal heart sound GI normal to inspection, nondistended, normoactive bowel sounds, soft to palpation, non-tender and non-distended Extremity normal to inspection Assessment & Plan Assessment/Plan (1) NSTEMI, initial episode of care: PLAN: Troponins 456 Echo pending Cards consult TMT: * No ASA given allergy (SOB), no statin given h/o cramps * clopidogrel * heparin gtt * tentative plan for [facility] on 11/16 PLAN: Plan Chronic conditions: * Chronic Kidney Disease Stage III, unclear subtype: Admission BUN/Cr 23/1.78, baseline renal function primarily 1.4-1.8, repeat BMP in AM. * CAD: Status post prior PCI, will continue aspirin, not on beta-kimberley therapy as on verapamil, not on statin secondary to allergy, not on JU inhibitor/ARB per most current list but will clarify. * History AAA: Status post prior endovascular repair and graft-stent, continue plavix, hypertensive regimen, not on statin therapy secondary to intolerance. * Hypertension: Continue home regimen including verapamil, PRN hydralazine. * Hyperlipidemia: Noted statin allergy, FLP in AM. 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 * Former tobacco use: Encourage continued tobacco cessation. * Chronic COPD/asthma with chronic hypoxic respiratory failure: We will continue patient home 3 L nasal cannula supplementation nightly, will maintain on ATC budesonide therapy, PRN albuterol, HOB, IS parameters. * History of bowel obstruction: Status post partial colectomy, resolved. * BPH: We will continue patient home Flomax home regimen. * Anxiety and depression: We will continue patient home mirtazapine regimen, clarifying dose. DVT prophylaxis: Continue heparin drip. CODE status: DNRCCA no intubation Charges/Coding Visit Charges Inpatient E&M: 16859 Subs Hosp L2
[2022-11-14 08:49] LABS: Troponin-I HS 1687 pg/mL (3.0-78.0)
--- NOTE | 2022-11-14 09:40 | CASEMGMT ---
RN ANDREW Face to Face with patient for initial transition planning/care coordination assessment. RN CM introduced self and role at [facility]. Patient lying in bed, alert and oriented. Patient willing to participate in assessment and is able to answer all questions appropriately. Care providers, pharmacy, and demographics verified. Patient wishes to discharge home, denies need for home health at this time. Patient states he has no further needs or concerns at this time. CM to follow for discharge planning needs that may arise. PCP: Laura Specialists: Maryan, special education director; Sabra, urologist; Checo, technical planner; Marcos, surgeon Preferred Pharmacy: [facility] Insurance: [employer], [employer] Prescription Benefit: yes Living Will/HPOA: yes, son Rob Appiah LNOK: , son Living Arrangements: Patient lives with who has dementia, son staying with . Patient lives in a single story home with 3 steps and railing to enter the home. Patient states he is independent at home. Transportation: self, son DME/HHC: Patient has shower chair, rasied toilet, nebuilzer, pusle ox, and home oxygen concentrator that patient has purchased on his own that he wear at . No previous HHC or SNF. Disposition Plan: Patient to discharge home with family support and follow-up plans in place. Puja LIANG, RN, CM
[2022-11-14 10:55] LABS: Partial Thromboplast Time 68.4 Seconds (24.1-36.2)
[2022-11-14 11:08] LABS: Troponin-I HS 2134 pg/mL (3.0-78.0)
[2022-11-14] MEDS: BICALUTAMIDE 50 MG TABLET PO (11:58)
[2022-11-14] MEDS: Calcium Carb/Vitamin D 1 TABLET Tablet 2 TABLET PO ×2 (11:58→18:42)
--- NOTE | 2022-11-14 11:58 | PCM.CONS.C ---
Assessment & Plan Assessment/Plan (1) Atherosclerotic heart disease of [place] coronary artery without angina pectoris: (2) History of coronary artery stent placement: (3) Old inferior wall myocardial infarction: (4) History of endovascular stent graft for abdominal aortic aneurysm (AAA): (5) Essential (primary) hypertension: (6) Hyperlipidemia: (7) 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 classification: (8) Acute non-ST elevation myocardial infarction (NSTEMI): (9) Prostate CA: PLAN: Plan 77-year-old patient Presented with symptoms of chest pain which have been for the last 2 days got worse yesterday and came to the ER at [facility] Early in the morning with symptoms of chest pain And had an EKG as well as evaluation by cardiac marker Which subsequently showed significant elevation of high sensitive troponin I His symptoms of chest pain resolved he does not have any active chest pain This patient has extensive cardiac history he had history of inferior myocardial infarction in 2007 and had a PCI and stenting using drug-eluting stent to the RCA As well he had a PCI and stent to the LAD and circumflex artery. Last cardiac catheterization in May 2020 which showed severe triple-vessel disease and was a high risk patient and decision was made to send him to a tertiary center to evaluate for high risk PCI versus CABG. And he ended up with PCI and stent of the left circumflex artery using drug-eluting stent. As well as a PCI and stent of the mid LAD. On the last angiogram the RCA is totally occluded and recanalized proximal RCA with micro channels. Other medical problem include history of abdominal aortic aneurysm he had an endovascular stent of the AAA. Also patient mention history of allergy to aspirin he was only taking Plavix. No I reviewed the last cardiac catheterization which was in May 24, 2020. And at that time his EF was preserved ejection fraction of 60%. Cardiac care plan and recommendations; This patient with the multiple medical comorbidities. Patient will need further evaluation with cardiac catheterization She has elevated serum creatinine up to 1.78 and I requested nephrology consultation Also will start on IV hydration Bedside echocardiogram showed reduced LV systolic function Ejection fraction in the range of around 40% with distal septal and apical hypokinesia I also discussed the allergy to aspirin Which is a high risk for acute in-stent thrombosis. Patient will need further evaluation with cardiac catheterization due to significant elevated troponins and presentation with chest pain which resolved. Very high risk patient with multiple coronary arteries involving the RCA circumflex LAD Likely the culprit in this case based on the EKG and the echocardiogram is in-stent thrombosis of LAD and patient will be evaluated further by cardiac catheterization by the Dr. Steinberg I requested the library attendant consultation the patient IV hydration with the plan of repeating the BMP and cardiac markers. Explained the need of cardiac catheterization in detail to the patient and family and nursing staff. HPI Consult Data Date of Consult: 11/14/22 HPI Narrative Reason for Consultation: CAD/chest pain/non-STEMI HPI Narrative: BETTE ASTORGA, is a 77 M who presents [facility] Medical History AAA (abdominal aortic aneurysm) Abdominal aortic aneurysm (AAA) greater than 5.5 cm in diameter in male Alcohol abuse Allergy to dog dander Anemia Arthritis Asthma Atherosclerotic heart disease of [place] coronary artery without angina pectoris Back pain BPH (benign prostatic hyperplasia) Bronchiectasis Cancer Complete small bowel obstruction COPD (chronic obstructive pulmonary disease) Coronary artery disease Easy bruising Elevated PSA Epistaxis Essential (primary) hypertension Excessive bleeding Former smoker History of colon cancer History of ST elevation myocardial infarction (STEMI) (05/27/07) Hyperlipidemia Hypoxia Insomnia Iron deficiency Kidney stones Left inguinal hernia Low back pain Myocardial infarct 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) On home oxygen therapy Partial bowel obstruction Personal history of other malignant neoplasm of rectum, rectosigmoid junction, and anus Prostate CA Short bowel syndrome Sinus bradycardia 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 classification Tachycardia Therapeutic drug monitoring Trigger finger Wears glasses Home Medications fluticasone propionate 50 mcg/actuation nasal spray,suspension 1 spray intranasal BID congestion 05/09/20 [History Last Taken 07/24/22] albuterol sulfate 90 mcg/actuation aerosol inhaler (Ventolin HFA) 2 puff inhalation Q4H PRN shortness of breath or wheezing #18 grams 07/02/21 [Rx Last Taken Unknown] formoterol fumarate 20 mcg/2 mL solution for nebulization (Perforomist) 2 ml inhalation Q12H copd #120 mL 12/25/21 [Rx Last Taken 07/23/22] clopidogrel 75 mg tablet 75 mg PO QHS blood thinner #90 tabs 01/08/22 [Rx Last Taken 07/24/22] budesonide 0.5 mg/2 mL suspension for nebulization 0.5 mg (2 mL) inhalation Q12H copd #180 mL 03/25/22 [Rx Last Taken 07/23/22] verapamil 240 mg tablet,extended release 240 mg PO QHS heart #90 tabs 04/28/22 [Rx Last Taken 07/24/22] multivitamin 2 tab PO DAILY 04/30/22 [History Last Taken 07/24/22] mirtazapine 15 mg tablet 15 mg PO QHS #90 tabs 08/17/22 [Rx Last Taken Unknown] mirtazapine 7.5 mg tablet 7.5 mg PO QHS #90 tabs 08/17/22 [Rx Last Taken Unknown] tamsulosin 0.4 mg capsule 0.4 mg PO QHS prostate #90 caps 10/13/22 [Rx Last Taken Unknown] bicalutamide 50 mg tablet 50 mg PO DAILY cancer 11/14/22 [History Last Taken 11/13/22] calcium 325 mg-vit D3 12.5 mcg-zinc 2.75 [id number] tablet (Citracal-D3 Maximum Plus) 2 tab PO BID bone deficiency 11/14/22 [History Last Taken Unknown] Allergy/AdvReac Type Severity Reaction Status Date / Time aspirin Allergy Shortness Verified 11/14/22 02:11 of breath adhesive AdvReac Rash Verified 11/14/22 02:11 amoxicillin trihydrate AdvReac Other Verified 11/14/22 02:11 [From Augmentin] atorvastatin calcium AdvReac leg cramps Verified 11/14/22 02:11 [From Lipitor] isopropyl alcohol AdvReac Rash Verified 11/14/22 02:11 metoprolol succinate AdvReac Rash Verified 11/14/22 02:11 [From Toprol XL] naproxen [From Naprosyn] AdvReac Shortness Verified 11/14/22 02:11 of breath paroxetine HCl [From Paxil] AdvReac Unknown Verified 11/14/22 02:11 potassium clavulanate AdvReac tingling Verified 11/14/22 02:11 [From Augmentin] all over propoxyphene HCl AdvReac Unknown Verified 11/14/22 02:11 [From Darvon] sertraline HCl [From Zoloft] AdvReac Unknown Verified 11/14/22 02:11 simvastatin [From Zocor] AdvReac Unknown Verified 11/14/22 02:11 tiotropium bromide AdvReac Other Verified 11/14/22 02:11 [From Spiriva with HandiHaler] Family History Father Heart disease Hypertension High cholesterol CVA (cerebral vascular accident) Mother Dementia Surgical History H/O hernia repair History of coronary artery stent placement (06/07/20) History of endovascular stent graft for abdominal aortic aneurysm (AAA) (06/25/20) History of esophagogastroduodenoscopy (EGD) History of left heart catheterization (05/24/20) History of left inguinal hernia repair (06/2021) history of right eye surgery History of right inguinal hernia repair History of tonsillectomy History of tonsillectomy and adenoidectomy Hx of appendectomy Hx of bilateral cataract extraction Hx of colonoscopy Hx of sinus surgery Hx of thumb surgery Hx of umbilical hernia repair Status post laparoscopic colectomy Social History Smoking Status: Former smoker pack-years: 67 second hand exposure: No alcohol intake: current alcohol intake frequency: other Alcohol type: beer details: Previous nightly drinker. 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 Risk Stratification Risk Stratification Applicable: Yes Age >/= 65: Yes >/= 3 CAD Risk Factors (HTN, HLD, DM, family hx of CAD, or current smoker): Yes Aspirin Use in the Past 7 Days: No Severe Angina (>/= episodes in 24 hours): Yes EKG ST Changes >/= 0.5mm: Yes Positive Cardiac Marker: Yes ALYSIA Risk Stratification Score: 5 ALYSIA % Risk: 25% Risk Objective Data Vital Signs: Vital Signs Temp Pulse Resp BP Pulse Ox O2 Del Method 98.3 F 75 16 150/81 H 96 Room Air 11/14/22 06:29 11/14/22 06:29 11/14/22 06:29 11/14/22 06:29 11/14/22 11:05 11/14/22 11:05 Oxygen Delivery Method Room Air Weight: 151 lb 0.266 oz Body Mass Index (BMI) 22.4 Intake & Output: Intake and Output for Last 24 Hours 11/12/22 11/13/22 11/14/22 23:59 23:59 23:59 Intake Total 500 / 500 Balance 500 / 500 Lab / Micro Data 11/14/22 02:10 11/14/22 02:10 Labs: Laboratory Results - last 24 hr 11/14/22 02:10: WBC 9.1, RBC 4.77, Hgb 14.0, Hct 42.6, MCV 89.3, MCH 29.4, MCHC 32.9, RDW Std Deviation 50.1 H, RDW Coeff of [place] 15.3 H, Plt Count 336, MPV 10.2, Immature Gran % (Auto) 0.300, Neut % (Auto) 63.8, Lymph % (Auto) 19.2, [place] % (Auto) 7.4, Eos % (Auto) 8.5 H, Baso % (Auto) 0.8, Absolute Neuts (auto) 5.8, Absolute Lymphs (auto) 1.74, Nucleated RBC % 0, PT 13.1 11/14/22 02:10: PT Cancelled, INR 1.0 11/14/22 02:10: INR Cancelled, APTT 31.6, Sodium 142, Potassium 3.5, Chloride 106, Carbon Dioxide 29.0, Anion Gap 7, BUN 23 H, Creatinine 1.78 H, Estim Creat Clear Calc 31.98, Est GFR (MDRD) Af Amer 48 L, Est GFR (MDRD) Non-Af 39 L, BUN/Creatinine Ratio 12.9, Glucose 107 H, Calcium 10.0, Troponin I High Sens 47 11/14/22 04:10: Magnesium 2.2, Troponin I High Sens 456 H* 11/14/22 08:06: Troponin I High Sens 1687 H* 11/14/22 10:34: APTT 68.4 H, Troponin I High Sens 2134 H* Cardiology Labs/Tests 11/14/22 02:10: WBC 9.1, RBC 4.77, Hgb 14.0, Hct 42.6, MCV 89.3, MCH 29.4, MCHC 32.9, Plt Count 336, MPV 10.2, Immature Gran % (Auto) 0.300, Neut % (Auto) 63.8, Lymph % (Auto) 19.2, [place] % (Auto) 7.4, Eos % (Auto) 8.5 H, Baso % (Auto) 0.8, Absolute Neuts (auto) 5.8, Nucleated RBC % 0, PT 13.1 11/14/22 02:10: PT Cancelled, INR 1.0 11/14/22 02:10: INR Cancelled, APTT 31.6, Sodium 142, Potassium 3.5, Chloride 106, Carbon Dioxide 29.0, Anion Gap 7, BUN 23 H, Creatinine 1.78 H, Est GFR (MDRD) Af Amer 48 L, Est GFR (MDRD) Non-Af 39 L, BUN/Creatinine Ratio 12.9, Glucose 107 H, Calcium 10.0 11/14/22 04:10: Magnesium 2.2 11/14/22 10:34: APTT 68.4 H Rhythm: EKG: ECHO: Stress Test: Cardiac Cath: PCI: CT Surgery: Holter monitor: EPS: PPM: CXR: Chest CT Scan: Radiography Diagnostic Testing: Radiology Impression Chest X-Ray 11/14/22 02:10 IMPRESSION: No evidence of acute cardiopulmonary disease. Electronically Signed: Brannon Degroot DO at 2:44 EDT ,
[2022-11-14] MEDS: HEPARIN/D5w 25,000 UNITS 25,000 UNITS/250 ML IV.SOLN. 7 UNITS CONT INF (12:00)
[2022-11-14] MEDS: 0.9% Normal Saline 1,000 ML 75 ML IV (12:01)
[2022-11-14 16:42] LABS: Troponin-I HS 1880 pg/mL (3.0-78.0)
--- NOTE | 2022-11-14 17:56 | CON.PCM.RE_ITS ---
Assessment & Plan Assessment/Plan (1) Chronic kidney disease, stage 3b: (2) Essential (primary) hypertension: (3) Acute non-ST elevation myocardial infarction (NSTEMI): PLAN: Plan Impression/Plan: The patient is a 77-year-old man with past history of hypertension, prostate cancer, PAD, status post endovascular repair of abdominal attic aneurysm, COPD, CAD status post PCI, and CKD. The patient was admitted to the hospital on 11/14/2022 with NSTEMI. Nephrology is following for chronic kidney disease. Chronic kidney disease stage G3b. Baseline serum creatinine has been around 1.5 to 1.8 mg/dL. He presented to the hospital on 11/14/2022 with serum creatinine 1.78 mg/dL which is close to prior baseline. The patient tells me that his renal function is being monitored by PCP. He has not seen automobile assembler in the past. Renal function has been stable for over 5 years per his report. The patient did undergo endovascular repair of AAA approximately 2 years ago and received IV contrast without problems. Recheck renal function again tomorrow. From my standpoint, if renal function remains stable at his usual baseline, the patient should be able to undergo cardiac catheterization without significant risk for contrast associated nephropathy. However, I would recommend limiting contrast load as much as we can. If intervention is needed, I would recommend staging the procedure to minimize contrast load per procedure. Hypertension. BP is reasonably controlled. Continue current dose of verapamil. NSTEMI. Management of CAD is as per hospital medicine and cardiology services. HPI Consult Data Date of Consult: 11/14/22 HPI Narrative Reason for Consultation: CKD. HPI Narrative: The patient is a 77-year-old man with past history of hypertension, prostate cancer, colon cancer, PAD status post endovascular repair of abdominal aortic a neurysm, COPD, CAD status post PCI, and CKD. The patient presented to the hospital on 11/14/2022 with midsternal chest pain which started 2 days prior to presentation. The patient has been diagnosed with NSTEMI. Nephrology is asked see the patient because of CKD in the setting of NSTEMI. The patient may be requiring cardiac catheterization and IV contrast exposure. Baseline serum creatinine has been around 1.4 to 1.8 mg/dL. Serum creatinine on admission is 1.78 mg/dL. The patient denies current chest pain or shortness of breath at rest. He denies nausea, vomiting or anorexia prior to admission. He does have loose bowel movement at baseline because of prior history of colectomy for colon cancer. He denies lower urinary tract symptoms, gross hematuria or dysuria. The patient denies using NSAIDs on a regular basis. Prior to admission, the patient was not on RAAS inhibitor or MRA. He was not on scheduled diuretic either. [facility] Medical History AAA (abdominal aortic aneurysm) Abdominal aortic aneurysm (AAA) greater than 5.5 cm in diameter in male Alcohol abuse Allergy to dog dander Anemia Arthritis Asthma Atherosclerotic heart disease of [place] coronary artery without angina pectoris Back pain BPH (benign prostatic hyperplasia) Bronchiectasis Cancer Complete small bowel obstruction COPD (chronic obstructive pulmonary disease) Coronary artery disease Easy bruising Elevated PSA Epistaxis Essential (primary) hypertension Excessive bleeding Former smoker History of colon cancer History of ST elevation myocardial infarction (STEMI) (05/27/07) Hyperlipidemia Hypoxia Insomnia Iron deficiency Kidney stones Left inguinal hernia Low back pain Myocardial infarct 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) On home oxygen therapy Partial bowel obstruction Personal history of other malignant neoplasm of rectum, rectosigmoid junction, and anus Prostate CA Short bowel syndrome Sinus bradycardia 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 classification Tachycardia Therapeutic drug monitoring Trigger finger Wears glasses Home Medications fluticasone propionate 50 mcg/actuation nasal spray,suspension 1 spray intranasal BID congestion 05/09/20 [History Last Taken 07/24/22] albuterol sulfate 90 mcg/actuation aerosol inhaler (Ventolin HFA) 2 puff inhalation Q4H PRN shortness of breath or wheezing #18 grams 07/02/21 [Rx Last Taken Unknown] formoterol fumarate 20 mcg/2 mL solution for nebulization (Perforomist) 2 ml inhalation Q12H copd #120 mL 12/25/21 [Rx Last Taken 07/23/22] clopidogrel 75 mg tablet 75 mg PO QHS blood thinner #90 tabs 01/08/22 [Rx Last Taken 07/24/22] budesonide 0.5 mg/2 mL suspension for nebulization 0.5 mg (2 mL) inhalation Q12H copd #180 mL 03/25/22 [Rx Last Taken 07/23/22] verapamil 240 mg tablet,extended release 240 mg PO QHS heart #90 tabs 04/28/22 [Rx Last Taken 07/24/22] multivitamin 2 tab PO DAILY 04/30/22 [History Last Taken 07/24/22] mirtazapine 15 mg tablet 15 mg PO QHS #90 tabs 08/17/22 [Rx Last Taken Unknown] mirtazapine 7.5 mg tablet 7.5 mg PO QHS #90 tabs 08/17/22 [Rx Last Taken Un known] tamsulosin 0.4 mg capsule 0.4 mg PO QHS prostate #90 caps 10/13/22 [Rx Last Taken Unknown] bicalutamide 50 mg tablet 50 mg PO DAILY cancer 11/14/22 [History Last Taken 11/13/22] calcium 325 mg-vit D3 12.5 mcg-zinc 2.75 [id number] tablet (Citracal-D3 Maximum Plus) 2 tab PO BID bone deficiency 11/14/22 [History Last Taken Unknown] Allergy/AdvReac Type Severity Reaction Status Date / Time aspirin Allergy Shortness Verified 11/14/22 02:11 of breath adhesive AdvReac Rash Verified 11/14/22 02:11 amoxicillin trihydrate AdvReac Other Verified 11/14/22 02:11 [From Augmentin] atorvastatin calcium AdvReac leg cramps Verified 11/14/22 02:11 [From Lipitor] isopropyl alcohol AdvReac Rash Verified 11/14/22 02:11 metoprolol succinate AdvReac Rash Verified 11/14/22 02:11 [From Toprol XL] naproxen [From Naprosyn] AdvReac Shortness Verified 11/14/22 02:11 of breath paroxetine HCl [From Paxil] AdvReac Unknown Verified 11/14/22 02:11 potassium clavulanate AdvReac tingling Verified 11/14/22 02:11 [From Augmentin] all over propoxyphene HCl AdvReac Unknown Verified 11/14/22 02:11 [From Darvon] sertraline HCl [From Zoloft] AdvReac Unknown Verified 11/14/22 02:11 simvastatin [From Zocor] AdvReac Unknown Verified 11/14/22 02:11 tiotropium bromide AdvReac Other Verified 11/14/22 02:11 [From Spiriva with HandiHaler] Family History Father Heart disease Hypertension High cholesterol CVA (cerebral vascular accident) Mother Dementia Surgical History H/O hernia repair History of coronary artery stent placement (06/07/20) History of endovascular stent graft for abdominal aortic aneurysm (AAA) (06/25/20) History of esophagogastroduodenoscopy (EGD) History of left heart catheterization (05/24/20) History of left inguinal hernia repair (06/2021) history of right eye surgery History of right inguinal hernia repair History of tonsillectomy History of tonsillectomy and adenoidectomy Hx of appendectomy Hx of bilateral cataract extraction Hx of colonoscopy Hx of sinus surgery Hx of thumb surgery Hx of umbilical hernia repair Status post laparoscopic colectomy Social History Smoking Status: Former smoker pack-years: 67 second hand exposure: No alcohol intake: current alcohol intake frequency: other Alcohol type: beer details: Previous nightly drinker. Stopped 2021 substance use type: does not use caffeine: Yes Type: coffee Number of servings: 4 what type of physical activity do you participate in: other details: pulmonary rehab frequency: 3-4 times per week ROS ROS Narrative 02/09 ROS was done, they are otherwise noncontributory to what is already in the HPI. Physical Exam Narrative General: Alert and oriented x3, NAD. HEENT: Normocephalic, atraumatic. Mucous membrane moist without erythema. PER RLA, EOMI. Hearing is intact. Neck: Supple, no JVD. Trachea is midline. No thyromegaly or lymphadenopathy. Cardiovascular: Normal S1, S2. No rubs, murmurs, or gallops. Respiratory: Mild expiratory wheeze diffusely. There is no crackles. Abdomen: Normal bowel sounds, soft, nontender, no guarding or rebound, no organomegaly. Extremities: No clubbing, cyanosis, or edema. Musculoskeletal: Full passive range of motion, no joint swelling. Psychiatric: Normal mood and affect. Skin: Warm and dry, no rash. Neurologic: Cranial nerve II to XII are grossly intact. No focal neurologic deficits. Lab / Micro Data 11/14/22 02:10 11/14/22 02:10 Labs: Laboratory Results - last 24 hr 11/14/22 02:10: WBC 9.1, RBC 4.77, Hgb 14.0, Hct 42.6, MCV 89.3, MCH 29.4, MCHC 32.9, RDW Std Deviation 50.1 H, RDW Coeff of Kylee 15.3 H, Plt Count 336, MPV 10.2, Immature Gran % (Auto) 0.300, Neut % (Auto) 63.8, Lymph % (Auto) 19.2, [place] % (Auto) 7.4, Eos % (Auto) 8.5 H, Baso % (Auto) 0.8, Absolute Neuts (auto) 5.8, Absolute Lymphs (auto) 1.74, Nucleated RBC % 0, PT 13.1 11/14/22 02:10: PT Cancelled, INR 1.0 11/14/22 02:10: INR Cancelled, APTT 31.6, Sodium 142, Potassium 3.5, Chloride 106, Carbon Dioxide 29.0, Anion Gap 7, BUN 23 H, Creatinine 1.78 H, Estim Creat Clear Calc 31.98, Est GFR (MDRD) Af Amer 48 L, Est GFR (MDRD) Non-Af 39 L, BUN/Creatinine Ratio 12.9, Glucose 107 H, Calcium 10.0, Troponin I High Sens 47 11/14/22 04:10: Magnesium 2.2, Troponin I High Sens 456 H* 11/14/22 08:06: Troponin I High Sens 1687 H* 11/14/22 10:34: APTT 68.4 H, Troponin I High Sens 2134 H* 11/14/22 16:01: Troponin I High Sens 1880 H* Radiology Impression Chest X-Ray 11/14/22 02:10 IMPRESSION: No evidence of acute cardiopulmonary disease. Electronically Signed: Brannon Degroot DO at 2:44 EDT , Echocardiogram 11/14/22 07:13 Interpretation Summary Diastolic function is indeterminate. The estimated ejection fraction is 45 %. Mild to moderate segmental systolic dysfunction (see wall motion). Mild (1+) tricuspid valve insufficiency. Right ventricular systolic pressure estimated to be 37 mmHg. Trivial aortic valve insufficiency. Ordering Physician: Delma Gonsalves Referring Physician: Krystyna Sanchez Performed By: Laila Turner, DAISY
[2022-11-14 18:31] LABS: Partial Thromboplast Time 45.4 Seconds (24.1-36.2)
--- NOTE | 2022-11-14 19:09 | CPS ---
Pt took own home aerosol meds
[2022-11-14] MEDS: Tamsulosin HCl 0.4 MG Capsule PO (21:04)
[2022-11-14] MEDS: Mirtazapine 15 MG Tablet 22.5 MG PO (21:04)
[2022-11-14] MEDS: Verapamil SR 240 MG Tablet PO (21:04)
[2022-11-14] MEDS: Loperamide 2 MG Capsule PO (21:04)
[2022-11-14] MEDS: Clopidogrel Bisulfate 75 MG Tablet PO (21:04)
[2022-11-14] MEDS: Fluticasone 0.05% 1 SPRAY NASAL.SRY NASAL (21:05)
[2022-11-15] VITALS (8 sets, daily range): BP systolic 110–148; BP diastolic 72–93; PULSE 75–114; RESP 12–18; TEMP 36.4–37.2; O2SAT 93–96; BMI 21.4
[2022-11-15] MEDS: Nitroglycerin (INPATIENT USE) 0.4 MG TAB.SUBL SL ×2 (00:06→00:14)
--- NOTE | 2022-11-15 00:33 | EKG12_ITS ---
Test Reason : CP Blood Pressure : / mmHG Vent. Rate : 111 BPM Atrial Rate : 111 BPM P-R Int : 160 ms QRS Dur : 088 ms QT Int : 356 ms P-R-T Axes : 065 -60 080 degrees QTc Int : 484 ms Sinus tachycardia Left axis deviation Septal infarct , age undetermined T wave abnormality, consider anterior ischemia Abnormal ECG Confirmed by TRACY RODRIGUEZ, ANGELES ([id number]), news copy editor CHELSEA HASSAN ([id number]) on 11/24/2022 7:22:11 AM Referred By: Delma Gonsalves Confirmed By:ANGELES MOLINA MD
[2022-11-15 00:45] LABS: Partial Thromboplast Time 49.4 Seconds (24.1-36.2)
[2022-11-15 06:55] LABS: Absolute Lymphocyte Count 1.02 X10^3/uL (0.83-4.51); Absolute Neutrophil Count 5.1 X10^3/uL (2.0-7.7); Basophil# 0.08 X10^3/uL; Basophil% 1.1 % (0-1); Eosinophils% 9.4 % (0-5); Hematocrit 40.4 % (40-54); Hemoglobin 13.1 g/dL (13.0-16.5); Lymphocyte # 1.02 X10^3/ul (0.83-4.51); Lymphocyte % 13.7 % (19-41); Mean Corp Hgb Conc 32.4 g/dL (32-36); Mean Corpuscular Volume 89.6 fL (80-94); Mean Platelet Vol. 10.1 fl (6.2-12.0); Monocyte# 0.47 X10^3/uL; Monocyte% 6.3 % (0-10); NRBC Flagged by Analyzer 0 % (0-5); Neutrophil # 5.13 X10^3/uL (2.7-7.7); Neutrophil % 69.1 % (47-70); Platelet Count 280 K/mm3 (150-450); RBC Distribution Width CV 15.3 % (11.6-14.6); RBC Distribution Width SD 50.4 fl (35.1-43.9); Red Blood Count 4.51 M/mm3 (4.6-6.2); White Blood Count 7.4 K/mm3 (4.4-11.0)
[2022-11-15 07:08] LABS: Partial Thromboplast Time 62.9 Seconds (24.1-36.2)
[2022-11-15 07:21] LABS: ALB/GLOB Ratio 1.1 RATIO (0.9-2.4); AST(SGOT) 23 U/L (15-37); Alanine Aminotransfer ALT/SGPT 17 U/L (16-61); Albumin, Serum 3.2 g/dL (3.2-5.0); Alkaline Phosphatase 74 U/L (45-117); Anion Gap 5 (5-15); BUN 18 mg/dL (7-18); BUN/Creat Ratio 12.2 RATIO (10-20); Calcium,Total 9.3 mg/dL (8.5-10.1); Chloride 111 mmol/L (98-107); Cholesterol 196 mg/dL (200); Creatinine, Serum 1.47 mg/dL (0.70-1.30); EST Glomerular Filtration Rate 49 mL/min (>60); Est Glom Filt Rate - Afr Amer 60 mL/min (>60); Estimated Creatinine Clearance 40.07 ml/min; Glucose 104 mg/dL (74-106); High Density Lipoprotein 62 mg/dL; Potassium 3.5 mmol/L (3.5-5.1); Protein, Total 6.2 g/dL (6.4-8.2); Sodium Level 140 mmol/L (136-145); Triglycerides 107 mg/dL; Very Low Density Lipoprotein 21 mg/dL (5-40)
[2022-11-15] MEDS: Calcium Carb/Vitamin D 1 TABLET Tablet 2 TABLET PO ×2 (07:49→18:35)
[2022-11-15] MEDS: BICALUTAMIDE 50 MG TABLET PO (07:49)
--- NOTE | 2022-11-15 08:24 | PN.HOSP_ITS ---
Reason for Visit Reason for Visit: Diagnoses Malignant neoplasm of prostate (11/14/22) Hyperlipidemia, unspecified (11/14/22) Essential (primary) hypertension (11/14/22) Non-ST elevation (NSTEMI) myocardial infarction (11/14/22) Atherosclerotic heart disease of [place] coronary artery without angina pectoris (11/14/22) Old myocardial infarction (11/14/22) Chronic obstructive pulmonary disease, unspecified (11/14/22) Chronic kidney disease, stage 3b (11/14/22) Presence of coronary angioplasty implant and graft (11/14/22) Presence of other vascular implants and grafts (11/14/22) Subjective Subjective Had CP last night. Resolved after 2 NTG. No current CP. Objective Data Objective Data Vital Signs: Vital Signs Temp Pulse Resp BP Pulse Ox O2 Del Method 37.2 C 93 18 110/72 93 Room Air 11/15/22 03:00 11/15/22 03:00 11/15/22 03:00 11/15/22 03:00 11/15/22 03:00 11/15/22 03:00 Oxygen Delivery Method Room Air Weight: 68.5 kg Body Mass Index (BMI) 22.4 Intake & Output: Intake and Output for Last 24 Hours 11/13/22 11/14/22 11/15/22 23:59 23:59 23:59 Intake Total 1635.53 / 1635.53 50.93 / 50.93 Output Total 700 / 1400 1100 / 1100 Balance 935.53 / 235.53 -1049.07 / -1049.07 Lab / Micro Data 11/15/22 06:40 11/15/22 06:40 Labs: Laboratory Results - last 24 hr 11/14/22 08:06: Troponin I High Sens 1687 H* 11/14/22 10:34: APTT 68.4 H, Troponin I High Sens 2134 H* 11/14/22 16:01: Troponin I High Sens 1880 H* 11/14/22 17:55: APTT 45.4 H 11/15/22 00:29: APTT 49.4 H 11/15/22 06:40: WBC 7.4, RBC 4.51 L, Hgb 13.1, Hct 40.4, MCV 89.6, MCH 29.0, MCHC 32.4, RDW Std Deviation 50.4 H, RDW Coeff of Kylee 15.3 H, Plt Count 280, MPV 10.1, Immature Gran % (Auto) 0.400, Neut % (Auto) 69.1, Lymph % (Auto) 13.7 L, [place] % (Auto) 6.3, Eos % (Auto) 9.4 H, Baso % (Auto) 1.1 H, Absolute Neuts (auto) 5.1, Absolute Lymphs (auto) 1.02, Nucleated RBC % 0, APTT 62.9 H, Sodium 140, Potassium 3.5, Chloride 111 H, Carbon Dioxide 24.0, Anion Gap 5, BUN 18, Creatinine 1.47 H, Estim Creat Clear Calc 40.07, Est GFR (MDRD) Af Amer 60, Est GFR (MDRD) Non-Af 49 L, BUN/Creatinine Ratio 12.2, Glucose 104, Calcium 9.3, Total Bilirubin 0.70, AST 23, ALT 17, Alkaline Phosphatase 74, Total Protein 6.2 L, Albumin 3.2, Globulin 3.0, Albumin/Globulin Ratio 1.1, Triglycerides 107, Cholesterol 196, LDL Cholesterol 113, VLDL Cholesterol 21, HDL Cholesterol 62 Radiography Diagnostic Testing: Radiology Impression Echocardiogram 11/14/22 07:13 Interpretation Summary Diastolic function is indeterminate. The estimated ejection fraction is 45 %. Mild to moderate segmental systolic dysfunction (see wall motion). Mild (1+) tricuspid valve insufficiency. Right ventricular systolic pressure estimated to be 37 mmHg. Trivial aortic valve insufficiency. Ordering Physician: Delma Gonsalves Referring Physician: Krystyna Sanchez Performed By: Laila Turner RDCS Physical Exam Const alert and no apparent distress HEENT head/scalp atraumatic and moist oral mucous membranes Resp normal respiratory effort, no retractions, no use of accessory muscles and clear to auscultation bilaterally Cardio regular rate, regular rhythm, S1 normal heart sound and S2 normal heart sound GI normal to inspection, nondistended, normoactive bowel sounds, soft to palpation, non-tender and non-distended Extremity normal to inspection Assessment & Plan Assessment/Plan (1) NSTEMI, initial episode of care: PLAN: Troponins 456 Echo pending Cards consult TMT: * No ASA given allergy (SOB), no statin given h/o cramps * clopidogrel * heparin gtt * tentative plan for [facility] on 11/16 PLAN: Plan Chronic conditions: * Chronic Kidney Disease Stage III, unclear subtype: Admission BUN/Cr 23/1.78, baseline renal function primarily 1.4-1.8, repeat BMP in AM. * CAD: Status post prior PCI, will continue aspirin, not on beta-kimberley therapy as on verapamil, not on statin secondary to allergy, not on JU inhibitor/ARB per most current list but will clarify. * History AAA: Status post prior endovascular repair and graft-stent, continue plavix, hypertensive regimen, not on statin therapy secondary to intolerance. * Hypertension: Continue home regimen including verapamil, PRN hydralazine. * Hyperlipidemia: Noted statin allergy, FLP in AM. 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 * Former tobacco use: Encourage continued tobacco cessation. * Chronic COPD/asthma with chronic hypoxic respiratory failure: We will continue patient home 3 L nasal cannula supplementation nightly, will maintain on ATC budesonide therapy, PRN albuterol, HOB, IS parameters. * History of bowel obstruction: Status post partial colectomy, resolved. * BPH: We will continue patient home Flomax home regimen. * Anxiety and depression: We will continue patient home mirtazapine regimen, clarifying dose. DVT prophylaxis: Continue heparin drip. CODE status: DNRCCA no intubation Charges/Coding Visit Charges Inpatient E&M: 76294 Subs Hosp L2
--- NOTE | 2022-11-15 11:31 | PN.CARD_ITS ---
Subjective Subjective Symptoms reported today No events noted from last night. Appreciate network security officer consult noted Objective Data Vital Signs: Vital Signs Temp Pulse Resp BP Pulse Ox O2 Del Method 97.6 F L 79 12 126/82 H 93 Room Air 11/15/22 09:10 11/15/22 09:10 11/15/22 09:10 11/15/22 09:10 11/15/22 09:10 11/15/22 09:10 Oxygen Delivery Method Room Air Weight: 144 lb 6.444 oz Body Mass Index (BMI) 21.4 Intake & Output: Intake and Output for Last 24 Hours 11/13/22 11/14/22 11/15/22 23:59 23:59 23:59 Intake Total 1635.53 / 1635.53 50.93 / 50.93 Output Total 700 / 1400 1100 / 1100 Balance 935.53 / 235.53 -1049.07 / -1049.07 Lab / Micro Data 11/15/22 06:40 11/15/22 06:40 Labs: Laboratory Results - last 24 hr 11/14/22 16:01: Troponin I High Sens 1880 H* 11/14/22 17:55: APTT 45.4 H 11/15/22 00:29: APTT 49.4 H 11/15/22 06:40: WBC 7.4, RBC 4.51 L, Hgb 13.1, Hct 40.4, MCV 89.6, MCH 29.0, MCHC 32.4, RDW Std Deviation 50.4 H, RDW Coeff of Kylee 15.3 H, Plt Count 280, MPV 10.1, Immature Gran % (Auto) 0.400, Neut % (Auto) 69.1, Lymph % (Auto) 13.7 L, [place] % (Auto) 6.3, Eos % (Auto) 9.4 H, Baso % (Auto) 1.1 H, Absolute Neuts (auto) 5.1, Absolute Lymphs (auto) 1.02, Nucleated RBC % 0, APTT 62.9 H, Sodium 140, Potassium 3.5, Chloride 111 H, Carbon Dioxide 24.0, Anion Gap 5, BUN 18, Creatinine 1.47 H, Estim Creat Clear Calc 40.07, Est GFR (MDRD) Af Amer 60, Est GFR (MDRD) Non-Af 49 L, BUN/Creatinine Ratio 12.2, Glucose 104, Calcium 9.3, Total Bilirubin 0.70, AST 23, ALT 17, Alkaline Phosphatase 74, Total Protein 6.2 L, Albumin 3.2, Globulin 3.0, Albumin/Globulin Ratio 1.1, Triglycerides 107, Cholesterol 196, LDL Cholesterol 113, VLDL Cholesterol 21, HDL Cholesterol 62 Cardiology Labs/Tests 11/14/22 17:55: APTT 45.4 H 11/15/22 00:29: APTT 49.4 H 11/15/22 06:40: WBC 7.4, RBC 4.51 L, Hgb 13.1, Hct 40.4, MCV 89.6, MCH 29.0, MCHC 32.4, Plt Count 280, MPV 10.1, Immature Gran % (Auto) 0.400, Neut % (Auto) 69.1, Lymph % (Auto) 13.7 L, [place] % (Auto) 6.3, Eos % (Auto) 9.4 H, Baso % (Auto) 1.1 H, Absolute Neuts (auto) 5.1, Nucleated RBC % 0, APTT 62.9 H, Sodium 140, Potassium 3.5, Chloride 111 H, Carbon Dioxide 24.0, Anion Gap 5, BUN 18, Creatinine 1.47 H, Est GFR (MDRD) Af Amer 60, Est GFR (MDRD) Non-Af 49 L, BUN/Creatinine Ratio 12.2, Glucose 104, Calcium 9.3, Total Bilirubin 0.70, Triglycerides 107, Cholesterol 196, LDL Cholesterol 113, VLDL Cholesterol 21, HDL Cholesterol 62 Rhythm: EKG: ECHO: Stress Test: Cardiac Cath: PCI: CT Surgery: Holter monitor: EPS: PPM: CXR: Chest CT Scan: Radiography Diagnostic Testing: Radiology Impression Echocardiogram 11/14/22 07:13 Interpretation Summary Diastolic function is indeterminate. The estimated ejection fraction is 45 %. Mild to moderate segmental systolic dysfunction (see wall motion). Mild (1+) tricuspid valve insufficiency. Right ventricular systolic pressure estimated to be 37 mmHg. Trivial aortic valve insufficiency. Ordering Physician: Delma Gonsalves Referring Physician: Krystyna Sanchez Performed By: Laila Turner RDCS Physical Exam Cardio Cardio Narrative: Cardiac exam S1-S2 regular Chest exam clear to auscultation bilateral No lower extremity edema noted Assessment & Plan Assessment/Plan (1) Atherosclerotic heart disease of [place] coronary artery without angina pectoris: (2) Old inferior wall myocardial infarction: (3) History of endovascular stent graft for abdominal aortic aneurysm (AAA): (4) Essential (primary) hypertension: (5) Hyperlipidemia: (6) 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 classification: (7) Acute non-ST elevation myocardial infarction (NSTEMI): PLAN: Plan 77-year-old patient with extensive cardiac history Peripheral vascular disease with endovascular AAA repair/stent Multiple coronary artery stent involving the RCA circumflex and LAD Presented with symptoms of chest pain With non-ST elevation DE, with significant elevation cardiac biomarkers high sensitive troponin Currently on medical therapy with heparin No further episode of chest pain noted Segmental wall motion abnormality with reduced EF around 40% Likely current blood will be in the LAD as he had a distal septal and apical hypokinesia in comparison to previous echocardiogram. Patient also had CKD, seen by network security officer on this admission Cardiac care plan recommendation We will plan for cardiac catheterization tomorrow if renal function is stable By his primary vp publisher development Dr. Steinberg With minimal contrast no left ventriculogram If significant coronary atherosclerosis identified Will stage for elective PCI. Minimize risk of contrast-induced nephropathy We will continue current medical treatment. Also will start on rehydration overnight Plan of cardiac catheterization discussed with the patient and nursing staff.
[2022-11-15] MEDS: HEPARIN/D5w 25,000 UNITS 25,000 UNITS/250 ML IV.SOLN. 9 UNITS CONT INF (13:35)
[2022-11-15] MEDS: 0.9% Saline Lock 10 ML Syringe IV ×2 (13:35→23:40)
[2022-11-15] MEDS: Heparin Injection (Vial) 5,000 UNIT/ML VIAL IV (15:45)
[2022-11-15 17:46] LABS: Bacteria 0 SEEN /hpf (None Seen); Mucous, Urine 0 SEEN /hpf (<or=2+); Red Blood Cells-Urine 0 SEEN /hpf (0-5); Squamous Epithelial Cells - UA 0 SEEN /hpf (0-5); White Blood Cells 0 SEEN /hpf (0-5)
[2022-11-15 17:51] LABS: Color, Urine Yellow (Yellow); Glucose, Dipstick Normal (Normal); Ketone-Dipstick Negative (Negative); Leukocyte Esterase-Dipstick Negative /ul (Negative); Nitrite-Dipstick Negative (Negative); Occult Blood-Urine Negative /ul (Negative); Protein-Dipstick Negative (Negative); Urine Bilirubin Dipstick Negative (Negative); Urine Clarity Clear (Clear); Urine Urobilinogen Normal (Normal); Urine pH 6.5 (5.0 - 8.0)
[2022-11-15] MEDS: Loperamide 2 MG Capsule PO (18:35)
--- NOTE | 2022-11-15 19:39 | PCM.PN.REN ---
Subjective Subjective Following for CKD. The patient denies current chest pain but did have chest pain overnight. Chest pain resolved with nitroglycerin. He denies current shortness of breath. He is scheduled for cardiac catheterization tomorrow. Objective Data Objective Data Vital Signs: Vital Signs Temp Pulse Resp BP Pulse Ox O2 Del Method 97.8 F 80 16 137/79 H 94 Room Air 11/15/22 14:43 11/15/22 14:43 11/15/22 14:43 11/15/22 14:43 11/15/22 14:43 11/15/22 14:43 Oxygen Delivery Method Room Air Weight: 65.5 kg Body Mass Index (BMI) 21.4 Intake & Output: Intake and Output for Last 24 Hours 11/13/22 11/14/22 11/15/22 23:59 23:59 23:59 Intake Total 1635.53 / 1635.53 183.53 / 183.53 Output Total 700 / 1400 1100 / 1100 Balance 935.53 / 235.53 -916.47 / -916.47 Lab / Micro Data 11/15/22 06:40 11/15/22 06:40 Labs: Laboratory Results - last 24 hr 11/15/22 00:29: APTT 49.4 H 11/15/22 06:40: WBC 7.4, RBC 4.51 L, Hgb 13.1, Hct 40.4, MCV 89.6, MCH 29.0, MCHC 32.4, RDW Std Deviation 50.4 H, RDW Coeff of [place] 15.3 H, Plt Count 280, MPV 10.1, Immature Gran % (Auto) 0.400, Neut % (Auto) 69.1, Lymph % (Auto) 13.7 L, [place] % (Auto) 6.3, Eos % (Auto) 9.4 H, Baso % (Auto) 1.1 H, Absolute Neuts (auto) 5.1, Absolute Lymphs (auto) 1.02, Nucleated RBC % 0, APTT 62.9 H, Sodium 140, Potassium 3.5, Chloride 111 H, Carbon Dioxide 24.0, Anion Gap 5, BUN 18, Creatinine 1.47 H, Estim Creat Clear Calc 40.07, Est GFR (MDRD) Af Amer 60, Est GFR (MDRD) Non-Af 49 L, BUN/Creatinine Ratio 12.2, Glucose 104, Calcium 9.3, Total Bilirubin 0.70, AST 23, ALT 17, Alkaline Phosphatase 74, Total Protein 6.2 L, Albumin 3.2, Globulin 3.0, Albumin/Globulin Ratio 1.1, Triglycerides 107, Cholesterol 196, LDL Cholesterol 113, VLDL Cholesterol 21, HDL Cholesterol 62 11/15/22 14:30: APTT 39.0 H 11/15/22 17:35: Urine Color Yellow, Urine Clarity Clear, Urine pH 6.5, Ur Specific [place] 1.010, Urine Protein Negative, Urine Glucose (UA) Normal, Urine Ketones Negative, Urine Occult Blood Negative, Urine Nitrite Negative, Urine Bilirubin Negative, Urine Urobilinogen Normal, Ur Leukocyte Esterase Negative, Urine RBC 0 SEEN, Urine WBC 0 SEEN, Ur Squamous Epith Cells 0 SEEN, Urine Bacteria 0 SEEN, Urine Mucus 0 SEEN Physical Exam Narrative General: Alert and oriented x3, NAD. HEENT: Normocephalic, atraumatic. Mucous membrane moist without erythema. PERRLA, EOMI. Hearing is intact. Neck: Supple, no JVD. Cardiovascular: Normal S1, S2. No rubs, murmurs, or gallops. Respiratory: Mild expiratory wheeze diffusely. There is no crackles. Abdomen: Normal bowel sounds, soft, nontender, no guarding or rebound, no organomegaly. Extremities: No clubbing, cyanosis, or edema. Assessment & Plan Assessment/Plan (1) Chronic kidney disease, stage 3b: (2) Essential (primary) hypertension: (3) Acute non-ST elevation myocardial infarction (NSTEMI): PLAN: Plan Impression/Plan: The patient is a 77-year-old man with past history of hypertension, prostate cancer, PAD status post endovascular repair of abdominal attic aneurysm, COPD, CAD status post PCI, and CKD. The patient was admitted to the hospital on 11/14/2022 with NSTEMI. Nephrology is following for chronic kidney disease. Chronic kidney disease stage G3b. Baseline serum creatinine has been around 1.5 to 1.8 mg/dL. He presented to the hospital on 11/14/2022 with serum creatinine 1.78 mg/dL which is at baseline. The patient tells me that his renal function is being monitored by PCP. He has not seen center punch operator in the past. Renal function has been stable for over 5 years per his report. The patient did undergo endovascular repair of AAA approximately 2 years ago and received IV contrast without problems. Renal function is stable today with serum creatinine of 1.47 mg/dL which is close to usual baseline. Therefore, from nephrology standpoint, he should be safe to proceed with cardiac catheterization. Risk of contrast associated nephropathy should be acceptable. Since the patient is not volume overloaded, I will start IV NS at 100 mL/h after midnight to minimize risk of contrast nephropathy. We should continue IV fluid for 2 to 3 hours after contrast exposure. I would recommend limiting contrast load as much as we can. If intervention is needed, I would recommend staging the procedure to minimize contrast load per procedure. Hypertension. BP is reasonably controlled. Continue current dose of verapamil. NSTEMI. The patient is tentatively scheduled for cardiac catheterization tomorrow on 11/16/2022. Management of CAD is as per hospital medicine and cardiology services.
[2022-11-15] MEDS: Budesonide Respules 0.5 MG/2 ML AMPUL.NEB. INHALATION (19:58)
[2022-11-15] MEDS: Mirtazapine 15 MG Tablet 22.5 MG PO (20:52)
[2022-11-15] MEDS: Clopidogrel Bisulfate 75 MG Tablet PO (20:53)
[2022-11-15] MEDS: Verapamil SR 240 MG Tablet PO (20:53)
[2022-11-15] MEDS: Tamsulosin HCl 0.4 MG Capsule PO (20:53)
[2022-11-15 21:57] LABS: Partial Thromboplast Time 66.1 Seconds (24.1-36.2)
[2022-11-15] MEDS: 0.9% Normal Saline 1,000 ML 100 ML IV (23:40)
[2022-11-16 03:18] LABS: Partial Thromboplast Time 77.4 Seconds (24.1-36.2)
[2022-11-16 03:39] LABS: Albumin, Serum 3.2 g/dL (3.2-5.0); Anion Gap 5 (5-15); BUN 20 mg/dL (7-18); BUN/Creat Ratio 13.6 RATIO (10-20); Calcium,Total 9.5 mg/dL (8.5-10.1); Chloride 112 mmol/L (98-107); Creatinine, Serum 1.47 mg/dL (0.70-1.30); EST Glomerular Filtration Rate 49 mL/min (>60); Est Glom Filt Rate - Afr Amer 60 mL/min (>60); Estimated Creatinine Clearance 38.37 ml/min; Glucose 110 mg/dL (74-106); Phosphorus 3.1 mg/dL (2.5-4.9); Potassium 3.4 mmol/L (3.5-5.1); Sodium Level 140 mmol/L (136-145)
[2022-11-16 04:20] VITALS: BP 106/70; PULSE 90; RESP 18; TEMP 37; O2SAT 93
--- NOTE | 2022-11-16 05:00 | EKG12_ITS ---
Test Reason : CHEST PAIN ADMIN Blood Pressure : / mmHG Vent. Rate : 072 BPM Atrial Rate : 072 BPM P-R Int : 150 ms QRS Dur : 104 ms QT Int : 416 ms P-R-T Axes : 021 -38 065 degrees QTc Int : 455 ms Normal sinus rhythm Left axis deviation Septal infarct , age undetermined Abnormal ECG When compared with ECG of 14-NOV-2022 02:08, MANUAL COMPARISON REQUIRED, DATA IS UNCONFIRMED Confirmed by TRACY RODRIGUEZ, ANGELES ([id number]), video tape editor CHELSEA HASSAN ([id number]) on 11/24/2022 7:22:32 AM Referred By: Delma Gonsalves Confirmed By:ANGELES MOLINA MD
[2022-11-16 05:34] VITALS: BMI 21.5
[2022-11-16] MEDS: 0.9% Normal Saline 1,000 ML 100 ML IV (06:57)
[2022-11-16] MEDS: Potassium Chloride Oral Tablet 20 MEQ 40 MEQ PO (06:57)
[2022-11-16 07:12] VITALS: PULSE 80; RESP 18
--- NOTE | 2022-11-16 07:56 | PN.HOSP_ITS ---
Reason for Visit Reason for Visit: Diagnoses Malignant neoplasm of prostate (11/14/22) Hyperlipidemia, unspecified (11/14/22) Essential (primary) hypertension (11/14/22) Non-ST elevation (NSTEMI) myocardial infarction (11/14/22) Atherosclerotic heart disease of [place] coronary artery without angina pectoris (11/14/22) Old myocardial infarction (11/14/22) Chronic obstructive pulmonary disease, unspecified (11/14/22) Chronic kidney disease, stage 3b (11/14/22) Presence of coronary angioplasty implant and graft (11/14/22) Presence of other vascular implants and grafts (11/14/22) Subjective Subjective had some twinges of chest pain last night. Objective Data Objective Data Vital Signs: Vital Signs Temp Pulse Resp BP Pulse Ox O2 Del Method 37.0 C 80 18 106/70 93 Room Air 11/16/22 04:20 11/16/22 07:12 11/16/22 07:12 11/16/22 04:20 11/16/22 04:20 11/16/22 04:20 Oxygen Delivery Method Room Air Weight: 66 kg Body Mass Index (BMI) 21.5 Intake & Output: Intake and Output for Last 24 Hours 11/14/22 11/15/22 11/16/22 23:59 23:59 23:59 Intake Total 1635.53 / 1635.53 183.53 / 183.53 864.18 / 864.18 Output Total 700 / 1400 1100 / 1100 600 / 600 Balance 935.53 / 235.53 -916.47 / -916.47 264.18 / 264.18 Lab / Micro Data 11/15/22 06:40 11/16/22 03:00 Labs: Laboratory Results - last 24 hr 11/15/22 14:30: APTT 39.0 H 11/15/22 17:35: Urine Color Yellow, Urine Clarity Clear, Urine pH 6.5, Ur Specific [place] 1.010, Urine Protein Negative, Urine Glucose (UA) Normal, Urine Ketones Negative, Urine Occult Blood Negative, Urine Nitrite Negative, Urine Bilirubin Negative, Urine Urobilinogen Normal, Ur Leukocyte Esterase Negative, Urine RBC 0 SEEN, Urine WBC 0 SEEN, Ur Squamous Epith Cells 0 SEEN, Urine Bacteria 0 SEEN, Urine Mucus 0 SEEN 11/15/22 21:30: APTT 66.1 H 11/16/22 03:00: APTT 77.4 H, Sodium 140, Potassium 3.4 L, Chloride 112 H, Carbon Dioxide 23.0, Anion Gap 5, BUN 20 H, Creatinine 1.47 H, Estim Creat Clear Calc 38.37, Est GFR (MDRD) Af Amer 60, Est GFR (MDRD) Non-Af 49 L, BUN/Creatinine Ratio 13.6, Glucose 110 H, Calcium 9.5, Phosphorus 3.1, Albumin 3.2 Physical Exam Const alert and no apparent distress HEENT head/scalp atraumatic and moist oral mucous membranes Resp normal respiratory effort, no retractions, no use of accessory muscles and clear to auscultation bilaterally Cardio regular rate, regular rhythm, S1 normal heart sound and S2 normal heart sound GI normal to inspection, nondistended, normoactive bowel sounds, soft to palpation and non-tender Assessment & Plan Assessment/Plan (1) NSTEMI, initial episode of care: PLAN: Troponins 456 Echo pending Cards consult TMT: * No ASA given allergy (SOB), no statin given h/o cramps * clopidogrel continued. * DW Dr. Yin, due to illness, he would be unable to perform LHC today, but likely tomorrow. Also, he recommended dc heparin gtt. DW patient. Recommended he stay to have LHC 11/17 rather than go home and have it as outpt. He expressed understanding,but will be going home (he cares for his demented ) and follow up as outpt. He understands the risks and advised to return if feeling worse. (2) Hypokalemia: PLAN: replaced today monitor PLAN: Plan Chronic conditions: * Chronic Kidney Disease Stage III, unclear subtype: Admission BUN/Cr 23/1.78, baseline renal function primarily 1.4-1.8, repeat BMP in AM. * CAD: Status post prior PCI, will continue aspirin, not on beta-kimberley therapy as on verapamil, not on statin secondary to allergy, not on JU inhibitor/ARB per most current list but will clarify. * History AAA: Status post prior endovascular repair and graft-stent, continue plavix, hypertensive regimen, not on statin therapy secondary to intolerance. * Hypertension: Continue home regimen including verapamil, PRN hydralazine. * Hyperlipidemia: Noted statin allergy, FLP in AM. 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 * Former tobacco use: Encourage continued tobacco cessation. * Chronic COPD/asthma with chronic hypoxic respiratory failure: We will continue patient home 3 L nasal cannula supplementation nightly, will maintain on ATC budesonide therapy, PRN albuterol, HOB, IS parameters. * History of bowel obstruction: Status post partial colectomy, resolved. * BPH: We will continue patient home Flomax home regimen. * Anxiety and depression: We will continue patient home mirtazapine regimen, clarifying dose. DVT prophylaxis: Continue heparin drip. CODE status: DNRCCA no intubation
[2022-11-16 10:01] LABS: Partial Thromboplast Time 35.8 Seconds (24.1-36.2)
[2022-11-16 10:20] VITALS: BP 122/78; PULSE 81; RESP 18; TEMP 36.7; O2SAT 98
--- NOTE | 2022-11-16 10:55 | DCINST_ITS ---
Discharge Instructions Diet Discharge Diet: Low fat / Low cholesterol Dressing / Incision Call your doctor if you observe: Shortness of breath and Chest pain Follow Up Care Test Results: Test results from this visit will be discussed in further detail at your follow- up appointment, if applicable. Discharge Plan Admission Admit Date/Time: 11/14/22 05:13 Primary Reason for Your Visit: Myocardial infarction. Attending Provider: Heri Ewing Primary Care Provider: Krystyna Sanchez Consulting Providers: Delma Gonsalves; Bethel Gallegos; Good Morse Instructions Additional Instructions / Restrictions: You had a mild myocardial infarction (heart attack). Please follow up with cardiology this week. Return if you have recurrent chest pain. Discharge Orders/Prescriptions Prescriptions: New nitroglycerin 0.4 mg Tablet, Sublingual 0.4 mg sublingual Q5M PRN (Reason: Cardiac/Chest Pain) Qty: 20 0RF Continued fluticasone propionate 50 mcg/actuation spray,suspension 1 spray INTRANASAL BID Rx Instructions: administer into each nostril multivitamin Tablet 2 tab PO DAILY [id number] [Citracal-D3 Maximum Plus] 325 mg-12.5 mcg -2.75 mg tablet 2 tab PO BID bicalutamide 50 mg tablet 50 mg PO DAILY Patient Comments: take 1 tablet by mouth once daily albuterol sulfate [Ventolin HFA] 90 mcg/actuation HFA aerosol inhaler 2 puff inhalation Q4H PRN (Reason: shortness of breath or wheezing) Qty: 18 6RF formoterol fumarate [Perforomist] 20 mcg/2 mL solution for nebulization 2 ml inhalation Q12H Qty: 120 11RF clopidogrel 75 mg tablet 75 mg PO QHS Qty: 90 3RF Patient Comments: STOPPING 3 DAYS PRIOR budesonide 0.5 mg/2 mL suspension for nebulization 0.5 mg INHALATION Q12H Qty: 180 11RF verapamil 240 mg tablet extended release 240 mg PO QHS Qty: 90 3RF mirtazapine 7.5 mg tablet 7.5 mg PO QHS Qty: 90 3RF Rx Instructions: Take a 15 mg tablet for total nightly dose of 22.5mg QHS mirtazapine 15 mg tablet 15 mg PO QHS Qty: 90 3RF tamsulosin 0.4 mg capsule 0.4 mg PO QHS Qty: 90 1RF Referrals / Follow Up: Krystyna Sanchez MD [Primary Care Provider] - Within 2 Weeks Sara Fabian PA [Med Staff - Adv Practice Prof] - 11/20/22 8:30 am Disposition Disposition (needs filled in before D/C Order can be placed): Home, Self Care
[2022-11-16 10:59] VITALS: BP 122/78; PULSE 81; RESP 18; TEMP 36.7; O2SAT 98
--- NOTE | 2022-11-16 11:00 | DS.PCM_ITS ---
Providers Date of Admission: 11/14/22 Primary Care Physician: Dr. Krystyna Sanchez MD Consultations 11/14/22 07:13 Consult: Cardiology Routine Consulting Provider: Bethel Gallegos Reason for Consult: Chest Pain, NSTEMI EMERGENT Consult: No MD Notified: Yes Date Notified: 11/14/22 Time Notified: 05:15 Method of Notification: ED Physician Initiated 11/14/22 10:06 Consult: Nephrology Routine Consulting Provider: Good Morse Reason for Consult: DOMENICA EMERGENT Consult: No Notified: Yes Date Notified: 11/14/22 Time Notified: 10:07 Method of Notification: Answering Service Reason For Visit: CHEST PAIN, NSTEMI Diagnosis Discharge Diagnosis (1) NSTEMI, initial episode of care: Status: Acute Code(s): I21.4 - Non-ST elevation (NSTEMI) myocardial infarction Plan: Troponins 456 Echo pending Cards consult TMT: * No ASA given allergy (SOB), no statin given h/o cramps * clopidogrel continued. * DW Dr. Yin, due to illness, he would be unable to perform LHC today, but likely tomorrow. Also, he recommended dc heparin gtt. DW patient. Recommended he stay to have LHC 11/17 rather than go home and have it as outpt. He expressed understanding,but will be going home (he cares for his demented ) and follow up as outpt. He understands the risks and advised to return if feeling worse. (2) Hypokalemia: Status: Acute Code(s): E87.6 - Hypokalemia Plan: replaced today monitor Plan Chronic conditions: * Chronic Kidney Disease Stage III, unclear subtype: Admission BUN/Cr 25/05.78, baseline renal function primarily 1.4-1.8, repeat BMP in AM. * CAD: Status post prior PCI, will continue aspirin, not on beta-papa therapy as on verapamil, not on statin secondary to allergy, not on SRINIVASA inhibitor/ARB per most current list but will clarify. * History AAA: Status post prior endovascular repair and graft-stent, continue plavix, hypertensive regimen, not on statin therapy secondary to intolerance. * Hypertension: Continue home regimen including verapamil, PRN hydralazine. * Hyperlipidemia: Noted statin allergy, FLP in AM. 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 * Former tobacco use: Encourage continued tobacco cessation. * Chronic COPD/asthma with chronic hypoxic respiratory failure: We will continue patient home 3 L nasal cannula supplementation nightly, will maintain on ATC budesonide therapy, PRN albuterol, HOB, IS parameters. * History of bowel obstruction: Status post partial colectomy, resolved. * BPH: We will continue patient home Flomax home regimen. * Anxiety and depression: We will continue patient home mirtazapine regimen, clarifying dose. DVT prophylaxis: Continue heparin drip. CODE status: DNRCCA no intubation Medications at Discharge Home Medications fluticasone propionate 50 mcg/actuation nasal spray,suspension 1 spray intranasal BID congestion 05/09/20 albuterol sulfate 90 mcg/actuation aerosol inhaler (Ventolin HFA) 2 puff inhalation Q4H PRN shortness of breath or wheezing #18 grams 07/02/21 formoterol fumarate 20 mcg/2 mL solution for nebulization (Perforomist) 2 ml inhalation Q12H copd #120 mL 12/25/21 clopidogrel 75 mg tablet 75 mg PO QHS blood thinner #90 tabs 01/08/22 budesonide 0.5 mg/2 mL suspension for nebulization 0.5 mg (2 mL) inhalation Q12H copd #180 mL 03/25/22 verapamil 240 mg tablet,extended release 240 mg PO QHS heart #90 tabs 04/28/22 multivitamin 2 tab PO DAILY 04/30/22 mirtazapine 15 mg tablet 15 mg PO QHS #90 tabs 08/17/22 mirtazapine 7.5 mg tablet 7.5 mg PO QHS #90 tabs 08/17/22 tamsulosin 0.4 mg capsule 0.4 mg PO QHS prostate #90 caps 10/13/22 bicalutamide 50 mg tablet 50 mg PO DAILY cancer 11/14/22 calcium 325 mg-vit D3 12.5 mcg-zinc 2.75 zd-fetkyk-kyaiviufw tablet (Citracal-D3 Maximum Plus) 2 tab PO BID bone deficiency 11/14/22 nitroglycerin 0.4 mg sublingual tablet 0.4 mg sublingual Q5M PRN Cardiac/Chest Pain #20 tabs 11/16/22 Hospital Course Operations None Procedures 2-D Echocardiogram Summary of Care Provided Minutes Spent on Discharge: 32 Weight / BMI Weight Weight: 66 kg Body Mass Index (BMI) 21.5 ABG / Lab / Microbiology Data 11/15/22 06:40 11/16/22 03:00 Laboratory: Laboratory Results - last 24 hr 11/15/22 14:30: APTT 39.0 H 11/15/22 17:35: Urine Color Yellow, Urine Clarity Clear, Urine pH 6.5, Ur Specific [place] 1.010, Urine Protein Negative, Urine Glucose (UA) Normal, Urine Ketones Negative, Urine Occult Blood Negative, Urine Nitrite Negative, Urine Bilirubin Negative, Urine Urobilinogen Normal, Ur Leukocyte Esterase Negative, Urine RBC 0 SEEN, Urine WBC 0 SEEN, Ur Squamous Epith Cells 0 SEEN, Urine Bacteria 0 SEEN, Urine Mucus 0 SEEN 11/15/22 21:30: APTT 66.1 H 11/16/22 03:00: APTT 77.4 H, Sodium 140, Potassium 3.4 L, Chloride 112 H, Carbon Dioxide 23.0, Anion Gap 5, BUN 20 H, Creatinine 1.47 H, Estim Creat Clear Calc 38.37, Est GFR (MDRD) Af Amer 60, Est GFR (MDRD) Non-Af 49 L, BUN/Creatinine Ratio 13.6, Glucose 110 H, Calcium 9.5, Phosphorus 3.1, Albumin 3.2 11/16/22 09:30: APTT 35.8 D/C Instructions Discharge Diet: Low fat / Low cholesterol Call your doctor if you observe: Shortness of breath and Chest pain Meaningful Use Info Meaningful Use Diagnoses (Choose all that apply): AMI AMI/Post PCI/Angioplasty Aspirin given w/in 24hrs of arrival?: No Reason no aspirin w/in 24hrs of arrival?: Allergy ASA at discharge?: No Reason ASA not ordered:: Allergy Antiplatelet Therapy at Discharge:: Yes Statins at discharge?: No Reason statins not ordered:: Allergy Srinivasa/ARB at discharge?: No Reason Srinivasa/ARB not ordered:: Worsening renal dysfunctn Beta Papa at discharge?: No Reason Beta Papa not ordered:: Allergy Done w/ Acute WI measure.: Yes Documented LVEF (%): 45 Discharge Plan Admission Admit Date/Time: 11/14/22 05:13 Primary Reason for Your Visit: Myocardial infarction. Attending Provider: Heri Ewing Primary Care Provider: Krystyna Sanchez Consulting Providers: Delma Gonsalves; Bethel Gallegos; Good Morse Instructions Additional Instructions / Restrictions: You had a mild myocardial infarction (heart attack). Please follow up with cardiology this week. Return if you have recurrent chest pain. Discharge Orders/Prescriptions Prescriptions: New nitroglycerin 0.4 mg Tablet, Sublingual 0.4 mg sublingual Q5M PRN (Reason: Cardiac/Chest Pain) Qty: 20 0RF Continued fluticasone propionate 50 mcg/actuation spray,suspension 1 spray INTRANASAL BID Rx Instructions: administer into each nostril multivitamin Tablet 2 tab PO DAILY cylqbul-Y0-vxus-copper-felix [Citracal-D3 Maximum Plus] 325 mg-12.5 mcg -2.75 mg tablet 2 tab PO BID bicalutamide 50 mg tablet 50 mg PO DAILY Patient Comments: take 1 tablet by mouth once daily albuterol sulfate [Ventolin HFA] 90 mcg/actuation HFA aerosol inhaler 2 puff inhalation Q4H PRN (Reason: shortness of breath or wheezing) Qty: 18 6RF formoterol fumarate [Perforomist] 20 mcg/2 mL solution for nebulization 2 ml inhalation Q12H Qty: 120 11RF clopidogrel 75 mg tablet 75 mg PO QHS Qty: 90 3RF Patient Comments: STOPPING 3 DAYS PRIOR budesonide 0.5 mg/2 mL suspension for nebulization 0.5 mg INHALATION Q12H Qty: 180 11RF verapamil 240 mg tablet extended release 240 mg PO QHS Qty: 90 3RF mirtazapine 7.5 mg tablet 7.5 mg PO QHS Qty: 90 3RF Rx Instructions: Take a 15 mg tablet for total nightly dose of 22.5mg QHS mirtazapine 15 mg tablet 15 mg PO QHS Qty: 90 3RF tamsulosin 0.4 mg capsule 0.4 mg PO QHS Qty: 90 1RF Referrals / Follow Up: Krystyna Sanchez MD [Primary Care Provider] - Within 2 Weeks Sara Fabian PA [Med Staff - Adv Practice Prof] - 11/20/22 8:30 am Disposition Disposition (needs filled in before D/C Order can be placed): Home, Self Care Charges/Coding Visit Charges Inpatient E&M: 01863 Disch Hosp >30min
--- NOTE | 2022-11-16 11:01 | PCM.PN.REN ---
Subjective Subjective Following for a DOMENICA on CKD Patient resting in bed. Denies any complaints. Objective Data Objective Data Vital Signs: Vital Signs Temp Pulse Resp BP Pulse Ox O2 Del Method 98.6 F 80 18 106/70 93 Room Air 11/16/22 04:20 11/16/22 07:12 11/16/22 07:12 11/16/22 04:20 11/16/22 04:20 11/16/22 10:00 Oxygen Delivery Method Room Air Weight: 66 kg Body Mass Index (BMI) 21.5 Intake & Output: Intake and Output for Last 24 Hours 11/14/22 11/15/22 11/16/22 23:59 23:59 23:59 Intake Total 1635.53 / 1635.53 183.53 / 183.53 864.18 / 864.18 Output Total 700 / 1400 1100 / 1100 600 / 600 Balance 935.53 / 235.53 -916.47 / -916.47 264.18 / 264.18 Lab / Micro Data 11/15/22 06:40 11/16/22 03:00 Labs: Laboratory Results - last 24 hr 11/15/22 14:30: APTT 39.0 H 11/15/22 17:35: Urine Color Yellow, Urine Clarity Clear, Urine pH 6.5, Ur Specific [place] 1.010, Urine Protein Negative, Urine Glucose (UA) Normal, Urine Ketones Negative, Urine Occult Blood Negative, Urine Nitrite Negative, Urine Bilirubin Negative, Urine Urobilinogen Normal, Ur Leukocyte Esterase Negative, Urine RBC 0 SEEN, Urine WBC 0 SEEN, Ur Squamous Epith Cells 0 SEEN, Urine Bacteria 0 SEEN, Urine Mucus 0 SEEN 11/15/22 21:30: APTT 66.1 H 11/16/22 03:00: APTT 77.4 H, Sodium 140, Potassium 3.4 L, Chloride 112 H, Carbon Dioxide 23.0, Anion Gap 5, BUN 20 H, Creatinine 1.47 H, Estim Creat Clear Calc 38.37, Est GFR (MDRD) Af Amer 60, Est GFR (MDRD) Non-Af 49 L, BUN/Creatinine Ratio 13.6, Glucose 110 H, Calcium 9.5, Phosphorus 3.1, Albumin 3.2 11/16/22 09:30: APTT 35.8 Physical Exam Narrative Alert and oriented x3, NAD. Normal S1, S2. No rubs, murmurs, or gallops. Lung sounds clear anteriorly and posteriorly Abdomen soft, nontender No edema edema. Assessment & Plan Assessment/Plan (1) Chronic kidney disease, stage 3b: (2) Essential (primary) hypertension: (3) Acute non-ST elevation myocardial infarction (NSTEMI): PLAN: Plan Impression/Plan: The patient is a 77-year-old man with past history of hypertension, prostate cancer, PAD status post endovascular repair of abdominal attic aneurysm, COPD, CAD status post PCI, and CKD. The patient was admitted to the hospital on 11/14/2022 with NSTEMI. Nephrology is following for chronic kidney disease. Chronic kidney disease stage G3b. Baseline serum creatinine has been around 1.5 to 1.8 mg/dL. He presented to the hospital on 11/14/2022 with serum creatinine 1.78 mg/dL which is at baseline. Patient states renal function is monitored by PCP, he does not follow with nephrology. Renal function has been stable for over 5 years per his report. The patient did undergo endovascular repair of AAA approximately 2 years ago and received IV contrast without problems. Reviewed with patient importance of avoiding NSAIDs. Renal function is stable today with serum creatinine of 1.47 mg/dL again today which is at baseline. Hypertension. BP is reasonably controlled. Continue current dose of verapamil. NSTEMI. Patient was tentatively scheduled for cardiac catheterization for today however procedure has been postponed till tomorrow due to unavailability of vascular ultrasound technologist. Patient has decided to be discharged to home today (he cares for his demented ) and will follow-up with cardiology. -We will arrange for hospital follow-up
--- NOTE | 2022-11-16 11:36 | PHA.DC.MR.R ---
Pharmacy [place] Med Reconciliation Pharmacy Service has performed discharge medication reconciliation for this patient. student education specialist, Niraj, attempted to apprise counselor. However, patient said he has had nitroglycerin before and is familiar with the medication. Patient felt he did not need counseling. Medications reviewed. The patient's discharge medication list was reviewed for discrepancies and discrepancies were resolved. Medications at Discharge Home Medications fluticasone propionate 50 mcg/actuation nasal spray,suspension 1 spray intranasal BID congestion 05/09/20 albuterol sulfate 90 mcg/actuation aerosol inhaler (Ventolin HFA) 2 puff inhalation Q4H PRN shortness of breath or wheezing #18 grams 07/02/21 formoterol fumarate 20 mcg/2 mL solution for nebulization (Perforomist) 2 ml inhalation Q12H copd #120 mL 12/25/21 clopidogrel 75 mg tablet 75 mg PO QHS blood thinner #90 tabs 01/08/22 budesonide 0.5 mg/2 mL suspension for nebulization 0.5 mg (2 mL) inhalation Q12H copd #180 mL 03/25/22 verapamil 240 mg tablet,extended release 240 mg PO QHS heart #90 tabs 04/28/22 multivitamin 2 tab PO DAILY 04/30/22 mirtazapine 15 mg tablet 15 mg PO QHS #90 tabs 08/17/22 mirtazapine 7.5 mg tablet 7.5 mg PO QHS #90 tabs 08/17/22 tamsulosin 0.4 mg capsule 0.4 mg PO QHS prostate #90 caps 10/13/22 bicalutamide 50 mg tablet 50 mg PO DAILY cancer 11/14/22 calcium 325 mg-vit D3 12.5 mcg-zinc 2.75 gg-kdvibo-ogipmsgzh tablet (Citracal-D3 Maximum Plus) 2 tab PO BID bone deficiency 11/14/22 nitroglycerin 0.4 mg sublingual tablet 0.4 mg sublingual Q5M PRN Cardiac/Chest Pain #20 tabs 11/16/22
--- NOTE | 2022-11-16 11:44 | CASEMGMT ---
Patient has order for discharge. RN CM in to discuss discharge needs with patient and son. Patient denies needs at discharge, independent in room. Patient and son had no further questions or concerns at this time.
--- NOTE | 2022-11-16 12:19 | NURSING ---
Patient was discharged home per orders. Telephone numbers provided for rescheduling heart cath. Patient left with son in private car.
--- NOTE | 2022-11-16 15:15 | CHAPLAIN ---
Type of Pastoral Visit _x__ Initial Visit ___ Follow-up Visit ___ On-call Visit ___ General Patient Visit ___ Spiritual Assessment ___ Family Conference ___ Bereavement ___ Rapid Response ___ Code Blue ___ Other (describe below) Pastoral Care Referral From _x__ Patient ___ Family ___ Nurse ___ Physician ___ [place] ___ Rectifying Attendant ___ Other (describe below) Sacrament/Intervention _x__ Active listening ___ Anointing ___ Caodaism ___ Bereavement ___ Communion ___ Vicky exploration ___ ___ Life review _x__ Prayer ___ Reconciliation ___ Sacrament of Sick __x_ Supportive presence ___ Wedding ___ Other (describe below) Pastoral Comments met with patient who was getting ready to leave the hospital; family member/friend was in the room; pt admits to disappointment and frustration as to postponement of his procedure due to doctor's illness; pt is heading home and states he doesn't have the answers he was hoping for and admits to being in a negative frame of mind; listening to concerns and offer of care given; asked pt and friend what they might need or want at this point to have a better experience and they decline needs; gave offer of prayer and patient said 'that is fine but just know that I practice beliefs'; again offered to be available and supportive as needed now and in the future for patient and friend
== END 2022-11-16 12:23 | disposition home or self-care (01) | DRG 281 ==
LOC: ED 05:12 → PCU 05:51
PROVIDERS: Internal Medicine Interventional Cardiology; Internal Medicine Nephrology; Admitting Provider Family Medicine; Emergency Provider Emergency Medicine; PCP Internal Medicine; Referring Provider Family Medicine
DX: I21.4 Non-ST elevation (NSTEMI) myocardial infarction (principal); J96.11 Chronic respiratory failure with hypoxia; C61 Malignant neoplasm of prostate; N18.32 Chronic kidney disease, stage 3b; J44.9 Chronic obstructive pulmonary disease, unspecified; I25.2 Old myocardial infarction; I25.10 Atherosclerotic heart disease of native coronary artery without angina pectoris; I12.9 Hypertensive chronic kidney disease with stage 1 through stage 4 chronic kidney disease, or unspecified chronic kidney disease; E78.5 Hyperlipidemia, unspecified; F32.A Depression, unspecified; F10.10 Alcohol abuse, uncomplicated; E87.6 Hypokalemia; Z66 Do not resuscitate; Z95.5 Presence of coronary angioplasty implant and graft; Z82.3 Family history of stroke; Z79.82 Long term (current) use of aspirin; Z87.891 Personal history of nicotine dependence; Z51.5 Encounter for palliative care; Z79.51 Long term (current) use of inhaled steroids; Z79.02 Long term (current) use of antithrombotics/antiplatelets
CPT/HCPCS: 36415; 71045; 80048; 80053; 80061; 80069; 81001; 83735; 84484; 85025; 85610; 85730; 93005; 93306; 94640; 94668; 99285; J7030; J7040; A4216

== ENCOUNTER → 2022-11-24 | Outpatient (CLI) | payer MEDICARE, OTHER, SELFPAY ==
[2022-11-24 12:04] LABS: PSA,Total- Diagnostic 0.05 ng/mL (0.0-4.0)
== END | disposition home or self-care (01) ==
LOC: LAB 11:07
PROVIDERS: PCP Internal Medicine; Referring Provider Urology; Visit Provider Urology
DX: C61 Malignant neoplasm of prostate (principal)
CPT/HCPCS: 36415; 84153

== ENCOUNTER 2022-11-27 07:20 | Day surgery (SDC) | payer MEDICARE, OTHER, SELFPAY ==
[2022-11-26 07:36] VITALS: BMI 22.3
[2022-11-27 07:48] LABS: Potassium 3.7 mmol/L (3.5-5.1)
--- NOTE | 2022-11-27 09:44 | CL.D_ITS ---
Patient Name: BETTE ASTORGA Study Date: 11/27/2022 Performing: Christiano Steinberg MD Ht: 68 inches 172.72 cm : 1945 Wt: 147 lbs 66.68 kg Age: 77 Gender: male BSA: 1.79 PROCEDURE(S) PERFORMED [id number]-([id number])[facility] CLINICAL PROFILE AND INDICATIONS Indications: Worsening Angina Heart Failure: None CONCLUSIONS Severe burns paiute vessel disease with new stenosis noted in the proximal left anterior descending artery and patent stents noted in the mid LAD and circumflex artery. RECOMMENDATIONS Referred for immediate PCI DESCRIPTION OF PROCEDURE The patient arrived to the procedure lab. The risks and benefits of the procedure as well as a full description of our services here and current unavailability of surgical backup were fully explained to the patient and/or their significant other prior to the catheterization. The Timeout was completed, verifying the correct patient and procedure. The patient's procedural site was prepped and draped in the usual fashion. Local anesthetic was given subcutaneously to right radial region with Lidocaine 2%. Using a modified Seldinger technique, arterial access was obtained via the right radial artery, a 6Fr sheath was inserted. Left Coronary Artery selective angiography was performed in multiple views using a 5 Fr. 4.0 Carpenter catheter. Right Coronary Artery selective angiography was then performed in multiple views using a 5 Fr. 4.0 Carpenter catheter. CORONARY ANGIOGRAPHY DOMINANCE: Co- Dominant LEFT HEART ASSESSMENT Left Ventricular Ejection Fraction: by Echo 45 % Inferior Basal Hypokinesis - Severe LEFT MAIN: Mild calcification LEFT ANTERIOR DESCENDING ARTERY: Proximal 80 to 90% stenosis followed by an area of stenting which is noted to be patent and a first diagonal vessel with 50% stenosis. The distal left anterior descending artery has mild luminal irregularities present. Vtgm-eb-rvhwq collaterals are noted. CIRCUMFLEX ARTERY: Codominant circumflex artery with previously placed stent which is patent. First obtuse marginal branch is noted with moderate stenosis. Ptlo-wc-wosvu collaterals are noted. RIGHT CORONARY ARTERY: PROX RCA: is occluded COLLATERAL FLOW: Collateral flow from Left to Right COMPLICATIONS No Complications PROCEDURE MEDICATIONS Versed 1 mg IV Fentanyl 50 mcg IV Oxygen: 2 L/min via nasal cannula Brilinta 180 mg PO @ 11/27/2022 09:41:15 Heparin given IA 11/27/2022 09:22:52 Verapamil 2.5mg, Ntg 200mcgs, 2000 units of Heparin given IA 11/27/2022 09:22:52 SUMMARY OF HEMODYNAMIC DATA Time AIR REST ECG 07:50:59 AO 108/56 (77) SA 09:24:13 Signed By Christiano Steinberg MD On 11/27/2022 09:43:44 Christiano Steinberg MD
--- NOTE | 2022-11-27 10:54 | CRPHASE1 ---
Patient Communication Patient Information Former Patient:: Phase I and Phase II PHII Cardiac Rehab Discussed with Patient:: Yes Guide to Cardiac Rehab Given to Patient:: Yes Cardiac Rehab Facility Choice List Given to Patient:: Yes Communication to Cardiac Rehab Choice Program [facility] CR PHII:: Communication Given to CR Equipment Or Machinery Cleaner:: Vi Patrick Refer Phase II Cardiac Rehab:: Yes Sessions:: 36 sessions - 3 days/wk, 12 weeks Cardiac Rehabilitation Info Program Information Cardiac Rehabilitation Program Information: Cardiac Rehab The cardiac rehab team at [facility] consists of highly skilled exercise physiologists, nurses, respiratory therapists and physicians working together with you. Our purpose is to help you have a full recovery and achieve the goals you set for yourself. Over the years many of our patients have returned to activities they assumed they would never do again! We can help restore your confidence and motivation to make lifestyle changes that can have a significant impact on your health and quality of life! We can help answer questions and concerns you may have about exercise, lifestyle, medications, diet, stress and anxiety which are common following a hospitalization. WE monitor ECG and vital signs during exercise and discuss your progress with you and report to your physician(s). Cardiac Rehab is proven to help reduce readmissions, improve functional capacity and lower recurrence of problems with your heart. Our Cardiac Rehab program is Certified by the [place] [employer]monary [employer] (AACVPR) and Accredited by the [place] [employer] through our [facility]. You can contact us at . We invite you to call us with your questions or to get started in our program. If you have other questions or concerns be sure to ask your physician/provider during your follow-up visit. WE look forward to seeing you!
--- NOTE | 2022-11-27 10:55 | CRPH1.INSTRU ---
General Education Discussed with Patient CAD and cardiac anatomy and function:: Patient communicates acknowledgment Explanation of diagnoses and procedures:: Patient communicates acknowledgment Sign/Symptoms of [place]:: Patient communicates acknowledgment Antiplatelet therapy: Patient communicates acknowledgment Proper use of NTG-SL: Patient communicates acknowledgment Emergency procedures and activation of EMS: Patient communicates acknowledgment Compliance of all prescribed medications: Patient communicates acknowledgment Smoking Response Code Nicotine/Smoking Response Code:: Patient communicates acknowledgment Dyslipidemia Risk Factors Patient Dyslipidemia Risk Factors Are:: Total Cholesterol, Triglycerides, HDL and LDL Recommendations Recommendations Include:: Lipid profile provided Response Code Dyslipidemia Response Code:: Patient communicates acknowledgment Overweight/Obesity Risk Factors Patient Overweight/Obesity Risk Factors Are:: BMI Normal [24-29 & > 65 years old] Recommendations Recommendations Include:: Exercise 5-7 times/week Response Code Overweight/Obesity:: Patient communicates acknowledgment Hypertension Recommendations Recommendations Include:: Maintain BP <130/85 Response Code Hypertension:: Patient communicates acknowledgment Heart Disease Risk Factors Patient Heart Disease Risk Factors Are:: Previous cardiac event Recommendations Recommendations Include:: Educated family members of their risk and Educated family members of importance of prevention of heart disease Response Code Heart Disease Response Code:: Patient communicates acknowledgment Diabetes Risk Factors Patient Diabetes Risk Factors Are:: No documented hx of diabetes Sedentary Risk Factors Patient Sedentary Risk Factors Are:: Lack of regular exercise Recommendations Recommendations Include:: Aerobic exercise 5-7 times/week for 20-30 minutes continuously, Benefits of regular exercise, Discussed home walking program and Monitored Outpatient Cardiac Rehab Response Code Sedentary Response Code:: Patient communicates acknowledgment
--- NOTE | 2022-11-27 11:51 | CL.I_ITS ---
Patient Name: BETTE ASTORGA Study Date: 11/27/2022 Performing: Ariela Patrick MD Ht: 68 inches 172.72 cm : 1945 Wt: 147 lbs 66.68 kg Age: 77 Gender: male BSA: 1.79 PROCEDURE(S) PERFORMED IC12-(81766/[id number])JMI W/WO PTCA, SINGLE CORONARY ARTERY CLINICAL PROFILE AND CO-MORBIDITIES Indications: Worsening Angina Heart Failure: None CONCLUSIONS Successful JIM to pLAD RECOMMENDATIONS DESCRIPTION OF PROCEDURE The patient arrived to the procedure lab. The risks and benefits of the procedure as well as a full description of our services here and current unavailability of surgical backup were fully explained to the patient and/or their significant other prior to the catheterization. The Timeout was completed, verifying the correct patient and procedure. The patient's procedural site was prepped and draped in the usual fashion. Local anesthetic was given subcutaneously to right radial region with Lidocaine 2% Using a modified Seldinger technique,arterial access was obtained via the right radial artery, a 6Fr sheath was inserted. Left Coronary Artery selective angiography was performed in multiple views using a 5 Fr. 4.0 Distant catheter. Right Coronary Artery selective angiography was then performed in multiple views using a 5 Fr. 4.0 Distant catheter.The images were reviewed and options discussed. A decision was then made to proceed with an Intervention, IVUS or other adjunct procedure. xb3 Guide catheter was inserted and engaged into the LCA. bmw Guide wire was advanced to the LAD. emerge 2.0 x 12 Balloon catheter was advanced across lesion in the LAD, proximal. PTCA balloon inflated at 12 atms for 21 secs. Angiogram performed post balloon dilatation. resolute 2.75 x 15 Drug Eluting stent was advanced across the lesion in the LAD, proximal. Angiogram performed post stent deployment. The arterial sheath was pulled and a TR Band was applied for hemostasis INTERVENTION INFORMATION LESION SITE: LAD (Proximal) Lesion Complexity: High/C, chronic total occlusion: No, lesion at bifurcation: No, thrombus present: No, lesion length: 15 mm, culprit lesion: Yes, Previously treated lesion: No Pre Stenosis: 90 % Pre intervention ALYSIA flow: 3 PROCEDURE: Drug Eluting Stent with pre dilatation. Post Stenosis: 0 % Post intervention ALYSIA flow: 3 Lesion Devices: Astorga .014 190cm BMW Savage Straight Cordis 6 Fr XB3.0 100cm Guide Catheter Kevin Sci EMERGE MR 2.00x12 BALLOON Medtronic Resolute Dewey RX JIM 2.75x15 COMPLICATIONS No Complications PROCEDURE MEDICATIONS Versed 1 mg IV Fentanyl 50 mcg IV Oxygen: 2 L/min via nasal cannula Brilinta 180 mg PO @ 11/27/2022 09:41:15 Heparin given IA 11/27/2022 09:22:52 Verapamil 2.5mg, Ntg 200mcgs, 2000 units of Heparin given IA 11/27/2022 09:22:52 IV Fluids: .9 NaCl IV started @ 100 ml/hr 11/27/2022 11:32:46 SUMMARY OF HEMODYNAMIC DATA Time AIR REST ECG 07:50:59 AO 108/56 (77) SA 09:24:13 Signed By Ariela Patrick MD On 11/27/2022 11:50:36 Ariela Patrick MD
== END 2022-11-27 14:55 | disposition home or self-care (01) ==
PROVIDERS: PCP Internal Medicine; Referring Provider Internal Medicine Cardiovascular Disease; Visit Provider Internal Medicine Cardiovascular Disease
DX: I25.110 Atherosclerotic heart disease of native coronary artery with unstable angina pectoris (principal); J44.9 Chronic obstructive pulmonary disease, unspecified; I70.90 Unspecified atherosclerosis; Z95.5 Presence of coronary angioplasty implant and graft; I25.2 Old myocardial infarction; Z82.49 Family history of ischemic heart disease and other diseases of the circulatory system; E78.5 Hyperlipidemia, unspecified; I25.10 Atherosclerotic heart disease of native coronary artery without angina pectoris; I10 Essential (primary) hypertension; Z95.828 Presence of other vascular implants and grafts; Z87.891 Personal history of nicotine dependence
CPT/HCPCS: 36415; 84132; 92928; 93005; 93454; 99152; 99153; J7040; Q9967; C1725; C1769; C1874; C1887; C1894; C9600; J1327

== ENCOUNTER 2022-11-30 11:19 | Emergency (ER) | payer MEDICARE, OTHER, SELFPAY ==
[2022-11-30] VITALS (13 sets, daily range): BP systolic 132–168; BP diastolic 65–98; PULSE 67–97; RESP 14–24; TEMP 36.1; O2SAT 96–97; BMI 23.0
--- NOTE | 2022-11-30 12:33 | EKG12_ITS ---
Test Reason : RECENT STENTS Blood Pressure : / mmHG Vent. Rate : 078 BPM Atrial Rate : 078 BPM P-R Int : 154 ms QRS Dur : 106 ms QT Int : 376 ms P-R-T Axes : 081 -47 091 degrees QTc Int : 428 ms Normal sinus rhythm Left axis deviation Septal infarct , age undetermined T wave abnormality, consider anterior ischemia Abnormal ECG Confirmed by TRACY RODRIGUEZ, ANGELES ([id number]), editor managing director CHELSEA HASSAN ([id number]) on 12/01/2022 11:02:55 AM Referred By: PATRICIA/SABINA Confirmed By:ANGELES MOLINA MD
--- NOTE | 2022-11-30 12:34 | EDS_ITS ---
HPI History of Present Illness Chief Complaint: General Illness Narrative Narrative: 77-year-old male presenting with shortness of breath. He states he had loaded a couple of gas cans in a couple of propane canisters into the back of the truck and then walked around it and started to have difficulty breathing which lasted for about 15 minutes. He denies any chest pain or chest pressure. He states he is currently feeling better. He relates that he recently had a cardiac stent placed by Dr. Steinberg on 11/27/2022. [facility] Medical History AAA (abdominal aortic aneurysm) Abdominal aortic aneurysm (AAA) greater than 5.5 cm in diameter in male Alcohol abuse Allergy to dog dander Anemia Arthritis Asthma Atherosclerotic heart disease of elem coronary artery without angina pectoris Back pain BPH (benign prostatic hyperplasia) Bronchiectasis Cancer Chronic kidney disease, stage 3b Complete small bowel obstruction COPD (chronic obstructive pulmonary disease) Coronary artery disease Easy bruising Elevated PSA Epistaxis Essential (primary) hypertension Excessive bleeding Former smoker History of colon cancer History of ST elevation myocardial infarction (STEMI) (05/27/07) Hyperlipidemia Hypoxia Insomnia Iron deficiency Kidney stones Left inguinal hernia Low back pain Myocardial infarct 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) On home oxygen therapy Partial bowel obstruction Personal history of other malignant neoplasm of rectum, rectosigmoid junction, and anus Prostate CA Short bowel syndrome Sinus bradycardia 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 classification Tachycardia Therapeutic drug monitoring Trigger finger Wears glasses Home Medications fluticasone propionate 50 mcg/actuation nasal spray,suspension 1 spray intranasal BID congestion 05/09/20 [History Last Taken 07/24/22] albuterol sulfate 90 mcg/actuation aerosol inhaler (Ventolin HFA) 2 puff inhalation Q4H PRN shortness of breath or wheezing #18 grams 07/02/21 [Rx Last Taken Unknown] formoterol fumarate 20 mcg/2 mL solution for nebulization (Perforomist) 2 ml inhalation Q12H copd #120 mL 12/25/21 [Rx Last Taken 11/27/22] budesonide 0.5 mg/2 mL suspension for nebulization 0.5 mg (2 mL) inhalation Q12H copd #180 mL 03/25/22 [Rx Last Taken 11/27/22] verapamil 240 mg tablet,extended release 240 mg PO QHS heart #90 tabs 04/28/22 [Rx Last Taken 07/24/22] multivitamin 2 tab PO DAILY 04/30/22 [History Last Taken 07/24/22] mirtazapine 15 mg tablet 15 mg PO QHS #90 tabs 08/17/22 [Rx Last Taken Unknown] mirtazapine 7.5 mg tablet 7.5 mg PO QHS #90 tabs 08/17/22 [Rx Last Taken Unknown] tamsulosin 0.4 mg capsule 0.4 mg PO QHS prostate #90 caps 10/13/22 [Rx Last Taken Unknown] bicalutamide 50 mg tablet 50 mg PO DAILY cancer 11/14/22 [History Last Taken 11/27/22] calcium 325 mg-vit D3 12.5 mcg-zinc 2.75 [id number] tablet (Citracal-D3 Maximum Plus) 2 tab PO BID bone deficiency 11/14/22 [History Last Taken 11/27/22] nitroglycerin 0.4 mg sublingual tablet 0.4 mg sublingual Q5M PRN Cardiac/Chest Pain #20 tabs 11/16/22 [Rx Last Taken Unknown] isosorbide mononitrate 30 mg tablet,extended release 24 hr 30 mg PO DAILY #30 tabs 11/20/22 [Rx Last Taken 11/27/22] ticagrelor 90 mg tablet 90 mg PO Q12H #60 tabs 11/27/22 [Rx Last Taken Unknown] Allergy/AdvReac Type Severity Reaction Status Date / Time aspirin Allergy Shortness Verified 11/30/22 11:20 of breath adhesive AdvReac Rash Verified 11/30/22 11:20 amoxicillin trihydrate AdvReac Other Verified 11/30/22 11:20 [From Augmentin] atorvastatin calcium AdvReac leg cramps Verified 11/30/22 11:20 [From Lipitor] isopropyl alcohol AdvReac Rash Verified 11/30/22 11:20 metoprolol succinate AdvReac Rash Verified 11/30/22 11:20 [From Toprol XL] naproxen [From Naprosyn] AdvReac Shortness Verified 11/30/22 11:20 of breath paroxetine HCl [From Paxil] AdvReac Unknown Verified 11/30/22 11:20 potassium clavulanate AdvReac tingling Verified 11/30/22 11:20 [From Augmentin] all over propoxyphene HCl AdvReac Unknown Verified 11/30/22 11:20 [From Darvon] sertraline HCl [From Zoloft] AdvReac Unknown Verified 11/30/22 11:20 simvastatin [From Zocor] AdvReac Unknown Verified 11/30/22 11:20 tiotropium bromide AdvReac Other Verified 11/30/22 11:20 [From Spiriva with HandiHaler] Family History Father Heart disease Hypertension High cholesterol CVA (cerebral vascular accident) Mother Dementia Surgical History H/O hernia repair History of coronary artery stent placement (06/07/20) History of endovascular stent graft for abdominal aortic aneurysm (AAA) (06/25/20) History of esophagogastroduodenoscopy (EGD) History of left heart catheterization (05/24/20) History of left inguinal hernia repair (06/2021) history of right eye surgery History of right inguinal hernia repair History of tonsillectomy History of tonsillectomy and adenoidectomy Hx of appendectomy Hx of bilateral cataract extraction Hx of colonoscopy Hx of sinus surgery Hx of thumb surgery Hx of umbilical hernia repair Status post laparoscopic colectomy Social History Smoking Status: Former smoker pack-years: 67 second hand exposure: No alcohol intake: current alcohol intake frequency: other Alcohol type: beer details: Previous nightly drinker. Stopped 2021 substance use type: marijuana caffeine: Yes Type: coffee Number of servings: 4 what type of physical activity do you participate in: other details: pulmonary rehab frequency: 3-4 times per week ROS ROS ED Constitutional Constitutional ED: Denies chills, fever(s) or sweats Eyes Eyes: Denies blurry vision or change in vision ENT ENT ED: Denies ear pain or sore throat Cardiovascular Cardiovascular: Denies chest pain, palpitations or racing heartbeat Respiratory/Chest Respiratory/Chest: Reports dyspnea; Denies cough or sputum Gastrointestinal Gastrointestinal: Denies abdominal pain, constipation, diarrhea, nausea or vomiting Genitourinary Genitourinary ED: Denies dysuria, hematuria or urinary frequency Musculoskeletal Musculoskeletal: Denies arthralgias, myalgias or neck pain Integumentary Denies abscess, Abrasions or rash Neurologic Neurologic: Denies headache(s), paresthesias or weakness Psychiatric Psychiatric: Denies anxiety, depression, suicidal ideation or suicidal thoughts Endocrine Endocrinology: Denies polydipsia or polyuria EXAM Physical Exam Const Vital Signs: 11/30/22 11:21 11/30/22 11:32 11/30/22 11:35 Temperature 97 F L Temperature Source Temporal Pulse Rate 78 88 Respiratory Rate 14 18 Respiratory Pattern Normal Blood Pressure 168/98 H 154/85 H Blood Pressure Mean 121 108 Pulse Ox 97 96 Oxygen Delivery Method Room Air Room Air 11/30/22 12:59 11/30/22 12:59 11/30/22 14:00 Temperature Temperature Source Pulse Rate 75 67 Respiratory Rate 18 16 Respiratory Pattern Blood Pressure 143/97 H 143/65 H Blood Pressure Mean 112 91 Pulse Ox 96 96 Oxygen Delivery Method Room Air Room Air Room Air 11/30/22 15:00 11/30/22 14:09 11/30/22 14:41 Temperature Temperature Source Pulse Rate 82 85 Respiratory Rate 16 24 H Respiratory Pattern Blood Pressure 148/92 H 158/95 H Blood Pressure Mean 110 114 Pulse Ox 96 Oxygen Delivery Method Room Air 11/30/22 14:50 11/30/22 15:00 11/30/22 15:10 Temperature Temperature Source Pulse Rate 89 91 85 Respiratory Rate 19 H 15 14 Respiratory Pattern Blood Pressure 148/92 H Blood Pressure Mean 108 Pulse Ox Oxygen Delivery Method 11/30/22 15:15 11/30/22 15:20 11/30/22 15:30 Temperature Temperature Source Pulse Rate 85 97 85 Respiratory Rate 18 16 20 H Respiratory Pattern Blood Pressure 132/95 H 151/92 H Blood Pressure Mean 107 110 Pulse Ox Oxygen Delivery Method 11/30/22 15:40 Temperature Temperature Source Pulse Rate 89 Respiratory Rate 21 H Respiratory Pattern Blood Pressure Blood Pressure Mean Pulse Ox Oxygen Delivery Method Positive well nourished General Appearance ED: NAD HEENT Reports moist mucous membranes Eyes PERRL and EOMs intact bilaterally Resp normal respiratory effort and clear to auscultation bilaterally Auscultation: Negative for rales, rhonchi or wheezes Cardio regular rate and regular rhythm GI normal to inspection, nondistended, normoactive bowel sounds Back/Spine no CVA tenderness Neuro oriented x3 and CN's II-XII intact bilaterally Sensorium / Orientation: alert Motor Exam: strength 5/5 throughout Psych mental status grossly normal Skin no rashes or lesions noted and no wounds MDM MDM MDM Narrative Medical decision making narrative: Patient presenting with shortness of breath. This lasted about 15 minutes at home for him to recover after lifting some gas cans at some propane cans into the back of his truck. He denies chest pain. He states his blood pressure was in the area of 180/110. He did not rest before he took the blood pressure and it just right after working. His blood pressure here is 168/98. It is improved to 151/92. No headache or focal neurologic deficits. He denies any chest pain or pressure. CBC shows no leukocytosis. Hemoglobin macular stable. Platelets normal. Creatinine slightly elevated at 1.67 today. Potassium slightly low at 3.3. BNP slightly elevated 177.8. Chest x-ray on my interpretation shows finding consistent with COPD. Radiologist interprets this as pulmonary hypertension with COPD findings. High-sensitivity 2016. Delta troponin 17. X- ray with Dr. Evaluate the patient he said he had spoken to Dr. Steinberg's office and they started him on a blood pressure medicine. He is to take this and follow-up with him. Discussed with him that his lab work was ultimately normal. Impression: 1. Dyspnea 2. Dehydration 3. Hypertension Lab Data Labs: Laboratory Results - last 24 hr 11/30/22 11/30/22 11:10 14:26 WBC 8.5 RBC 4.71 Hgb 13.9 Hct 42.4 MCV 90.0 MCH 29.5 MCHC 32.8 RDW Std Deviation 49.1 H RDW Coeff of Kylee 14.9 H Plt Count 423 MPV 11.1 Immature Gran % (Auto) 0.400 Neut % (Auto) 68.1 Lymph % (Auto) 16.3 L Kane % (Auto) 6.4 Eos % (Auto) 8.0 H Baso % (Auto) 0.8 Absolute Neuts (auto) 5.8 Absolute Lymphs (auto) 1.39 Nucleated RBC % 0 Sodium 141 Potassium 3.3 L Chloride 108 H Carbon Dioxide 25.0 Anion Gap 8 BUN 19 H Creatinine 1.67 H Estim Creat Clear Calc 34.08 Est GFR (MDRD) Af Amer 51 L Est GFR (MDRD) Non-Af 42 L BUN/Creatinine Ratio 11.4 Glucose 100 Calcium 9.9 Troponin I High Sens 16 17 B-Natriuretic Peptide 177.8 H Radiography Diagnostic Testing: Clinical Impression(s) from Imaging Studies Chest X-Ray 11/30/22 13:00 IMPRESSION: Hyperinflation. COPD Prominence of the central pulmonary arteries. Stable examination. Electronically Signed: Baljeet Thurman MD at 13:17 EDT , Discharge Plan Triage Chief Complaint: General Illness ED Provider: Joseph Manzano Dx/Rx/DC Orders Instructions: ED Dyspnea Prescriptions: No Action fluticasone propionate 50 mcg/actuation spray,suspension 1 spray INTRANASAL BID Rx Instructions: administer into each nostril multivitamin Tablet 2 tab PO DAILY isosorbide mononitrate 30 mg tablet extended release 24 hr 30 mg PO DAILY Qty: 30 10RF [id number]-[id number]-felix [Citracal-D3 Maximum Plus] 325 mg-12.5 mcg -2.75 mg tablet 2 tab PO BID bicalutamide 50 mg tablet 50 mg PO DAILY Patient Comments: take 1 tablet by mouth once daily nitroglycerin 0.4 mg Tablet, Sublingual 0.4 mg sublingual Q5M PRN (Reason: Cardiac/Chest Pain) Qty: 20 0RF ticagrelor 90 mg tablet 90 mg PO Q12H Qty: 60 2RF albuterol sulfate [Ventolin HFA] 90 mcg/actuation HFA aerosol inhaler 2 puff inhalation Q4H PRN (Reason: shortness of breath or wheezing) Qty: 18 6RF formoterol fumarate [Perforomist] 20 mcg/2 mL solution for nebulization 2 ml inhalation Q12H Qty: 120 11RF budesonide 0.5 mg/2 mL suspension for nebulization 0.5 mg INHALATION Q12H Qty: 180 11RF verapamil 240 mg tablet extended release 240 mg PO QHS Qty: 90 3RF mirtazapine 7.5 mg tablet 7.5 mg PO QHS Qty: 90 3RF Rx Instructions: Take a 15 mg tablet for total nightly dose of 22.5mg QHS mirtazapine 15 mg tablet 15 mg PO QHS Qty: 90 3RF tamsulosin 0.4 mg capsule 0.4 mg PO QHS Qty: 90 1RF Primary Care Provider: Krystyna Sanchez Referrals: Christiano Steinberg MD [Med Staff - Active Staff] - 3-5 Days Krystyna Sanchez MD [Primary Care Provider] - Disposition Disposition: Home, Self Care Discharge Date/Time: 11/30/22 15:47
[2022-11-30 12:47] LABS: Absolute Lymphocyte Count 1.39 X10^3/uL (0.83-4.51); Absolute Neutrophil Count 5.8 X10^3/uL (2.0-7.7); Basophil# 0.07 X10^3/uL; Basophil% 0.8 % (0-1); Eosinophil# 0.68 X10^3/uL; Hematocrit 42.4 % (40-54); Hemoglobin 13.9 g/dL (13.0-16.5); Lymphocyte # 1.39 X10^3/ul (0.83-4.51); Lymphocyte % 16.3 % (19-41); Mean Corp Hgb Conc 32.8 g/dL (32-36); Mean Corpuscular Hgb 29.5 pg (27.0-32.0); Mean Platelet Vol. 11.1 fl (6.2-12.0); Monocyte# 0.55 X10^3/uL; Monocyte% 6.4 % (0-10); NRBC Flagged by Analyzer 0 % (0-5); Neutrophil # 5.82 X10^3/uL (2.7-7.7); Neutrophil % 68.1 % (47-70); Platelet Count 423 K/mm3 (150-450); RBC Distribution Width CV 14.9 % (11.6-14.6); RBC Distribution Width SD 49.1 fl (35.1-43.9); Red Blood Count 4.71 M/mm3 (4.6-6.2); White Blood Count 8.5 K/mm3 (4.4-11.0)
--- NOTE | 2022-11-30 13:00 | RAD_ITS ---
STUDY: X-RAY CHEST REASON FOR EXAM: Male, 77 years old. Chest pain TECHNIQUE: Single AP portable view of the chest. COMPARISON: Comparison is made with prior study dated November 14, 2022. FINDINGS: EKG electrodes are seen. There is hyperinflation of the lungs consistent with chronic obstructive lung disease (COPD). There is no demonstrated pleural abnormality. Normal size heart. Normal mediastinum and nya. There is prominence of the pulmonary hilar arteries without peripheral pulmonary vascular congestion, suggesting pulmonary hypertension. There is atherosclerotic calcification of the aortic arch with tortuosity. There are diffuse degenerative changes of the visualized thoracic spine. Normal visualized ribs, clavicles, and shoulders. There is no demonstrated abnormality of the visualized soft tissue structures of the upper abdomen. RAD/Chest 1 View (Portable) IMPRESSION: Hyperinflation. COPD Prominence of the central pulmonary arteries. Stable examination. Electronically Signed: Baljeet Thurman MD at 13:17 EDT ,
[2022-11-30 13:17] LABS: Anion Gap 8 (5-15); BUN 19 mg/dL (7-18); BUN/Creat Ratio 11.4 RATIO (10-20); Calcium,Total 9.9 mg/dL (8.5-10.1); Chloride 108 mmol/L (98-107); Creatinine, Serum 1.67 mg/dL (0.70-1.30); EST Glomerular Filtration Rate 42 mL/min (>60); Est Glom Filt Rate - Afr Amer 51 mL/min (>60); Estimated Creatinine Clearance 34.08 ml/min; Glucose 100 mg/dL (74-106); Potassium 3.3 mmol/L (3.5-5.1); Sodium Level 141 mmol/L (136-145); Troponin-I HS (w/2H Reflex) 16 pg/mL (3.0-78.0)
[2022-11-30 13:34] LABS: BNP,B-Type NATRIURETIC PEPTIDE 177.8 pg/mL (0-100)
[2022-11-30 14:41] LABS: Reflex Troponin-HS? (from REC) Y
[2022-11-30 15:13] LABS: Troponin-I HS 17 pg/mL (3.0-78.0)
== END 2022-11-30 15:47 | disposition home or self-care (01) ==
PROVIDERS: Emergency Provider Student in an Organized Health Care Education/Training Program; PCP Internal Medicine; Visit Provider Student in an Organized Health Care Education/Training Program
DX: R06.00 Dyspnea, unspecified (principal); J44.9 Chronic obstructive pulmonary disease, unspecified; N18.32 Chronic kidney disease, stage 3b; E86.0 Dehydration; Z95.5 Presence of coronary angioplasty implant and graft; I12.9 Hypertensive chronic kidney disease with stage 1 through stage 4 chronic kidney disease, or unspecified chronic kidney disease; Z87.891 Personal history of nicotine dependence; I25.10 Atherosclerotic heart disease of native coronary artery without angina pectoris; E78.5 Hyperlipidemia, unspecified; Z79.899 Other long term (current) drug therapy; Z79.51 Long term (current) use of inhaled steroids; Z90.49 Acquired absence of other specified parts of digestive tract
CPT/HCPCS: 71045; 80048; 83880; 84484; 85025; 93005; 99285; A4216

== ENCOUNTER → 2022-12-14 | Outpatient (CLI) | payer MEDICARE, OTHER, SELFPAY ==
[2022-12-14 10:36] LABS: Anion Gap 7 (5-15); BUN 25 mg/dL (7-18); BUN/Creat Ratio 10.7 RATIO (10-20); Calcium,Total 10.3 mg/dL (8.5-10.1); Chloride 105 mmol/L (98-107); Creatinine, Serum 2.34 mg/dL (0.70-1.30); EST Glomerular Filtration Rate 29 mL/min (>60); Est Glom Filt Rate - Afr Amer 35 mL/min (>60); Glucose 115 mg/dL (74-106); Potassium 3.6 mmol/L (3.5-5.1); Sodium Level 140 mmol/L (136-145)
== END | disposition home or self-care (01) ==
LOC: LAB 09:48
PROVIDERS: PCP Internal Medicine; Referring Provider Internal Medicine Cardiovascular Disease; Visit Provider Internal Medicine Cardiovascular Disease
DX: Z51.81 Encounter for therapeutic drug level monitoring (principal); Z79.899 Other long term (current) drug therapy
CPT/HCPCS: 36415; 80048

== ENCOUNTER → 2023-02-11 | Outpatient (CLI) | payer MEDICARE, OTHER, SELFPAY ==
--- NOTE | 2023-02-11 10:46 | MRI_ITS ---
MR Prostate WO/W Contrast 02/11/2023 11:20 AM COMPARISON: None CLINICAL HISTORY: 77 yo man with prostate cancer. TECHNIQUE: Axial T1-weighted and high-resolution axial T2-weighted MR images of the pelvis were obtained. Images were acquired for planning of radiation therapy. 13 cc of IV clariscan was used. DISCUSSION: See Impression. MRI/Pelvis W/WO Contrast IMPRESSION: 1) MR imaging scan done for planning of radiation therapy of prostate cancer. 2) Heterogeneous appearance of the gland is at least in part due to the known prostate cancer, as well as being consistent with benign prostatic hyperplasia. 3) No lymphadenopathy or seminal vesicle involvement. Normal bones and bladder. 4) No macroscopic extraprostatic extension. Electronically Signed: Vitaliy Snow MD at 23:06 EDT ,
[2023-02-11 11:27] LABS: CREATININE FINGERSTICK 1.6 mg/dL (0.70-1.30)
== END | disposition home or self-care (01) ==
PROVIDERS: PCP Internal Medicine; Referring Provider Student in an Organized Health Care Education/Training Program; Visit Provider Student in an Organized Health Care Education/Training Program
DX: C61 Malignant neoplasm of prostate (principal)
CPT/HCPCS: 72197; 77014; 77290; A9575; Q9967; A4216

== ENCOUNTER → 2023-04-16 | Outpatient (CLI) | payer MEDICARE, OTHER, SELFPAY ==
[2023-03-29 10:01] VITALS: BMI 24.3
[2023-04-16 11:18] LABS: Hematocrit 42.3 % (40-54); Hemoglobin 13.6 g/dL (13.0-16.5); Mean Corp Hgb Conc 32.2 g/dL (32-36); Mean Corpuscular Hgb 29.8 pg (27.0-32.0); Mean Corpuscular Volume 92.8 fL (80-94); Mean Platelet Vol. 10.7 fl (6.2-12.0); Platelet Count 291 K/mm3 (150-450); RBC Distribution Width CV 13.6 % (11.6-14.6); RBC Distribution Width SD 46.3 fl (35.1-43.9); Red Blood Count 4.56 M/mm3 (4.6-6.2)
[2023-04-16 11:43] LABS: BNP,B-Type NATRIURETIC PEPTIDE 133.4 pg/mL (0-100)
[2023-04-16 11:44] LABS: Anion Gap 7 (5-15); BUN 18 mg/dL (7-18); BUN/Creat Ratio 12.1 RATIO (10-20); Calcium,Total 9.6 mg/dL (8.5-10.1); Chloride 108 mmol/L (98-107); Creatinine, Serum 1.49 mg/dL (0.70-1.30); EST Glomerular Filtration Rate 48 mL/min (>60); Est Glom Filt Rate - Afr Amer 59 mL/min (>60); Glucose 116 mg/dL (74-106); Potassium 3.7 mmol/L (3.5-5.1); Sodium Level 143 mmol/L (136-145)
== END | disposition home or self-care (01) ==
LOC: LAB 10:52
PROVIDERS: PCP Internal Medicine; Referring Provider Nurse Practitioner Gerontology; Visit Provider Nurse Practitioner Gerontology
DX: M25.473 Effusion, unspecified ankle (principal); I50.20 Unspecified systolic (congestive) heart failure; R06.02 Shortness of breath; Z51.81 Encounter for therapeutic drug level monitoring; Z79.899 Other long term (current) drug therapy; D64.9 Anemia, unspecified
CPT/HCPCS: 36415; 80048; 83880; 85027

== ENCOUNTER → 2023-04-21 | Outpatient (CLI) | payer MEDICARE, OTHER, SELFPAY ==
[2023-03-29 10:01] VITALS: BMI 24.3
[2023-04-21 12:23] LABS: Anion Gap 5 (5-15); BUN 16 mg/dL (7-18); BUN/Creat Ratio 9.2 RATIO (10-20); Chloride 103 mmol/L (98-107); Creatinine, Serum 1.73 mg/dL (0.70-1.30); EST Glomerular Filtration Rate 41 mL/min (>60); Est Glom Filt Rate - Afr Amer 49 mL/min (>60); Glucose 133 mg/dL (74-106); Potassium 3.5 mmol/L (3.5-5.1); Sodium Level 139 mmol/L (136-145)
== END | disposition home or self-care (01) ==
LOC: LAB 11:55
PROVIDERS: PCP Internal Medicine; Referring Provider Nurse Practitioner Gerontology; Visit Provider Nurse Practitioner Gerontology
DX: I50.20 Unspecified systolic (congestive) heart failure (principal); M25.473 Effusion, unspecified ankle
CPT/HCPCS: 36415; 80048

== ENCOUNTER → 2023-05-05 | Outpatient (CLI) | payer MEDICARE, OTHER, SELFPAY ==
[2023-03-29 10:01] VITALS: BMI 24.3
--- NOTE | 2023-05-05 09:20 | AAVD_ITS ---
Reason For Study: AAA Aorta Measurements Aorta Doppler Measurements Proximal aorta measures2.38 x 2.47cm. in cross- Peak systolic flow velocities within the proximal sectional axis. aorta measure 56.4 cm/sec. Proximal aorta measures2.35cm. in longitudinal Mid aorta, Limb 1, 65 cm/sec. axis. Mid aorta, Limb 2, 55.1 cm/sec. Prox graft, 2.21 x 2.27 x 2.23 cm. Distal aorta, Limb 1, 36.7 cm/sec. Mid aorta, Limb 1, 1.07 x 1.03 x 1.10 cm. Distal aorta, Limb 2, 36.7 cm/sec. Mid aorta, Limb 2, 1.05 x 1.04 x 1.08 cm. Mid aorta, residual sac, 3.87 x 3.66 x 3.7 cm. Distal aorta, Limb 1, 1.35 x 1.32 x 1.41 cm. Distal aorta, Limb 2, 1.09 x 0.97 x 1.02 cm. Distal aorta, residual sac, 4.25 x 4.59 x 4.3 cm. Left Iliac Artery Left iliac artery measures 1.26 x 1.29 cm. in the cross-sectional axis. Left iliac artery measures 1.30 cm. in the longitudinal axis. Peak systolic velocity in the left iliac artery measures 34.3 cm/sec. Right Iliac Artery Right iliac artery measures 1.30 x 1.28 cm. in the cross-sectional axis. Right iliac artery measures 1.22 cm. in the longitudinal axis. Peak systolic velocity in the right iliac artery measures 53.9 cm/sec. Right iliac artery distal to graft measures 1.96 x 1.95 x 1.97 cm, with a velocity of 200.2 cm/sec. Procedure Aorta IVC Iliac vasculature or bypass grafts [id number]. Exam performed in department. VL/Abd Aortic/IVC Duplex scan Interpretation Summary Residual abdominal aortic aneurysm sac at 3.87 x 3.66 cm in diameter in the mid aorta and 4.25 x 4.59 cm distally Left common neck artery measures 1.26 x 1.29 cm in diameter Right common iliac artery measures 1.3 x 1.28 cm diameter. The right iliac graeme ry distal to the stent graft is ectatic at 1.96 x 1.95 cm in diameter The aortic sac has diminished in size from the previous examination of May 01, 2022 where it measured 4.89 x 5.74. Ordering Physician: Sawyer Rodríguez Referring Physician: Krystyna Sanchez Performed By: Puja Urena RVT
--- OUTSIDE RECORDS SUMMARY | 2023-05-05 10:33 | XMS RPT_ITS | CCD ---
Author Name Unknown Address [address] [place] [address] Organization [facility] Care Team Providers Care [employer] Worker Name Role Phone Lanny Mccall LPN Unavailable Unavailab Dee Cool Unavailable Unavailable Angie Leigh Unavailable Unavailable Angie Leigh Unavailable Unavailable Alessandro Calabrese Primary Care Provider KRYSTYNA SANCHEZ Primary Care Unavailable AREN MCARTHUR Referring Unavailable KRYSTYNA SANCHEZ Primary Care Unavailable AREN MCARTHUR Attending Unavailable Krystyna Sanchez MD Primary Care Provider Allergies Allergy Classification Reported Allergen(s) Allergy Type Date of Onset Reaction(s) Facility (9 sources) Adhesive Tape; Translations: [ADHESIVE TAPE] drug allergy 5 Rash [facility] Work Phone: (8 sources) amoxicillin / clavulanate; Translations: [AUGMENTIN] drug allergy 5 tingling and itching all over [facility] Work Phone: (9 sources) aspirin; Translations: [ASPIRIN] drug allergy 5 causes asthma [facility] Work Phone: (8 sources) atorvastatin drug allergy 5 myalgia [facility] Work Phone: (4 sources) metoprolol drug allergy 5 unknown [facility] Work Phone: (4 sources) metoprolol drug allergy 5 [facility] Work Phone: (4 sources) naproxen drug allergy 5 causes asthma [facility] Work Phone: (4 sources) naproxen drug allergy 5 [facility] Work Phone: (4 sources) PARoxetine drug allergy 5 unknown [facility] Work Phone: (7 sources) PARoxetine; Translations: [PAROXETINE] drug allergy 5 Unknown [facility] Work Phone: (8 sources) propoxyphene; Translations: [DARVON] drug allergy 5 unknown [facility] Work Phone: (8 sources) sertraline drug allergy 5 unknown [facility] Work Phone: (8 sources) simvastatin; Translations: [ZOCOR] drug allergy 5 myalgia [facility] Work Phone: (8 sources) Tetracyclines; Translations: [TETRACYCLINES] allergy to substance 5 unknown [facility] Work Phone: (4 sources) tiotropium drug allergy 5 [facility] Work Phone: (8 sources) RUBBING ALCOHOL; Translations: [RUBBING ALCOHOL] drug allergy 5 rash and villa skin [facility] Work Phone: (4 sources) SPIRIVA HANDIHALER drug allergy 5 gets nasty, mean grumpy [facility] Work Phone: (1 source) Aluminum aspirin Drug Allergy 1 Shortness Of Breath [place] (1 source) Amoxicillin Drug Allergy 1 Other (See Comments) [place] (1 source) atorvastatin Drug Allergy 1 Other (See Comments) [place] (3 sources) Clavulanate; Translations: [CLAVULANIC ACID] Drug Allergy 9 Unknown [place] (1 source) denatured ethanol Drug Allergy 1 Rash [place] (3 sources) Metoprolol; Translations: [METOPROLOL] Drug Allergy 5 Rash, Other (See Comments) [place] (3 sources) Naproxen; Translations: [NAPROXEN] Drug Allergy 5 Shortness Of Breath, Intolerance [place] (1 source) Propoxyphene Drug Allergy 1 [place] (3 sources) Sertraline; Translations: [SERTRALINE HCL] Drug Allergy 5 Intolerance [place] (3 sources) Simvastatin; Translations: [SIMVASTATIN] Drug Allergy 5 Int[place] (1 source) tiotropium Drug Allergy 1 [place] (2 sources) Adhesive agent; Translations: [ADHESIVE] Propensity to adverse reactions to drug (disorder) 9 Rash [facility] (2 sources) atorvastatin; Translations: [ATORVASTATIN] Drug Allergy 5 Intolerance [facility] (2 sources) Doxycycline; Translations: [DOXYCYCLINE] Drug Allergy 7 Rash, Itching [facility] (2 sources) PARoxetine; Translations: [PAROXETINE HCL] Drug Allergy 5 Intolerance [facility] (2 sources) Propoxyphene; Translations: [PROPOXYPHENE HCL] Drug Allergy 5 Intolerance [facility] (2 sources) Sertraline; Translations: [SERTRALINE] Drug Allergy 5 Unknown [facility] (2 sources) tiotropium; Translations: [TIOTROPIUM BROMIDE] Drug Allergy 5 Intolerance [facility] (2 sources) ALCOHOL; Translations: [ALCOHOL] Propensity to adverse reactions to drug (disorder) 9 Hives [facility] (2 sources) AMOXICILLIN-POT CLAVULANATE; Translations: [AMOXICILLIN-POT CLAVULANATE] Propensity to adverse reactions to drug (disorder) 5 Intolerance [facility] (1 source) OTHER; Translations: [OTHER] Propensity to adverse reactions (disorder) 8 [facility] (1 source) Aspirin Drug Allergy 5 Intolerance [facility] Work Phone: (1 source) Environmental allergies [Other] Propensity to adverse reactions 6 [facility] (1 source) tape [Other] Propensity to adverse reactions 8 [facility] Work Phone: Medications Current Medications Medication Drug Class(es) Dates Sig (Normalized) Sig (Original) 1 ml atropine sulfate 0.4 mg/ml injection (1 source) Anticholinergic, Cholinergic Muscarinic Antagonist Start: 06-07-2020 End: 06-07-2020 atropine injection 0.5 mg cholecalciferol 2000 unt oral tablet (1 source) Vitamin D Cholecalciferol 50 MCG (2000 UT) TABS Take 2,000 Units by mouth 0 Active Glucosamine HCl-MSM (GLUCOSAMINE-MSM PO) (1 source) take 2 tablets by mouth twice daily Glucosamine HCl-MSM (GLUCOSAMINE-MSM PO) Take 2 tablets by mouth 2 times daily 0 Active losartan potassium 25 mg oral tablet (1 source) Angiotensin 2 Receptor Papa take 1 tablet by mouth once daily losartan (COZAAR) 25 MG tablet Take 25 mg by mouth daily 0 Active [place]-3 Fatty Acids (OMEGA-3 FISH OIL PO) (1 source) [place]-3 Fatty Ac ids (OMEGA-3 FISH OIL PO) Take by mouth 0 Active Red Yeast Rice Extract (RED YEAST RICE PO) (1 source) take 2 capsules by mouth twice daily Red Yeast Rice Extract (RED YEAST RICE PO) Take 2 capsules by mouth 2 times daily 0 Active 3 ml sodium chloride 9 mg/ml injection (2 sources) Start: 06-07-2020 sodium chloride flush 0.9 % injection 10 mL Completed/Discontinued Medications Medication Drug Class(es) Dates Sig (Normalized) Sig (Original) 120 actuat albuterol 0.1 mg/actuat / ipratropium bromide 0.02 mg/actuat inhalation spray (14 sources) Anticholinergic, beta2-Adrenergic Agonist Start: 10-30-2014 ipratropium 20 mcg-albuterol 100 mcg (COMBIVENT RESPIMAT) 20-100 mcg/actuation inhaler NEEDED 0 10/30/2014 Active Problems Active Problems Problem Classification Problem Date Documented Date Episodic/Chronic Asthma (4 sources) Moderate persistent asthma; Translations: [Moderate persistent asthma, uncomplicated] Onset: 06-12-2014 06-12-2014 Chronic Cancer of colon (1 source) Malignant tumor of colon; Translations: [Malignant neoplasm of colon, unspecified] Onset: 09-21-2007 09-21-2007 Chronic Cancer of rectum and anus (1 source) Malignant tumor of rectum; Translations: [Malignant neoplasm of rectum] Onset: 12-05-2007 03-03-2019 Chronic Cancer of rectum and anus (7 sources) Personal history of other malignant neoplasm of rectum, rectosigmoid junction, and anus; Translations: [History of malignant neoplasm of digestive organ] Onset: 12-21-2012 05-10-2014 Episodic Chronic obstructive pulmonary disease and bronchiectasis (14 sources) Moderate chronic obstructive pulmonary disease; Translations: [Acute exacerbation of chronic obstructive airways disease] Onset: 02-27-2005 12-20-2015 Chronic Coronary atherosclerosis and other heart disease (3 sources) Coronary atherosclerosis; Translations: [Atherosclerotic heart disease of [place] coronary artery without angina pectoris] Onset: 02-27-2005 Chronic Coronary atherosclerosis and other heart disease (1 source) History of placement of stent for coronary artery disease; Translations: [S/P drug eluting coronary stent placement] Episodic Disorders of lipid metabolism (1 source) Hyperlipidemia; Translations: [Other hyperlipidemia] Onset: 02-27-2005 03-03-2019 Chronic Esophageal disorders (1 source) Gastroesophageal reflux disease; Translations: [Gastro-esophageal reflux disease without esophagitis] Onset: 02-27-2005 02-27-2005 Chronic Essential hypertension (1 source) Benign essential hypertension; Translations: [Essential (primary) hypertension] Onset: 02-27-2005 03-03-2019 Chronic Hyperplasia of prostate (1 source) Benign prostatic hypertrophy with outflow obstruction; Translations: [Benign prostatic hyperplasia with lower urinary tract symptoms] Onset: 12-07-2007 12-07-2007 Chronic Osteoarthritis (1 source) Osteoarthrosis of the carpometacarpal joint of the thumb; Translations: [Unilateral primary osteoarthritis of first carpometacarpal joint, left hand] Onset: 03-03-2019 03-03-2019 Chronic Other screening for suspected conditions (not mental disorders or infectious disease) (4 sources) Thallium stress test abnormal; Translations: [Elevated prostate specific antigen [PSA]] Onset: 07-10-2022 06-07-2020 Episodic Other upper respiratory disease (1 source) Allergic rhinitis; Translations: [Allergic rhinitis, unspecified] Onset: 07-29-2006 07-29-2006 Chronic Other upper respiratory infections (1 source) Chronic sinusitis; Translations: [Chronic sinusitis, unspecified] Onset: 07-29-2006 07-29-2006 Chronic Residual codes; unclassified (1 source) Hypoxia; Translations: [Idiopathic sleep related nonobstructive alveolar hypoventilation] Onset: 03-03-2019 03-03-2019 Chronic Secondary malignancies (1 source) Secondary malignant neoplasm of intra-abdominal lymph nodes; Translations: [Secondary and unspecified malignant neoplasm of intra-abdominal lymph nodes] Onset: 12-06-2007 12-06-2007 Chronic Past or Other Problems Problem Classification Problem Date Documented Da te Episodic/Chronic Abdominal hernia (2 sources) Diaphragmatic hernia; Translations: [Diaphragmatic hernia without obstruction or gangrene] Onset: 09-21-2007 09-21-2007 Episodic Cardiac dysrhythmias (4 sources) Tachycardia; Translations: [Tachycardia, unspecified] Onset: 06-12-2014 06-12-2014 Episodic Deficiency and other anemia (1 source) Iron deficiency anemia; Translations: [Iron deficiency anemia, unspecified] Onset: 12-06-2007 12-06-2007 Episodic Gastritis and duodenitis (1 source) Acute gastritis; Translations: [Acute gastritis without bleeding] Onset: 09-21-2007 09-21-2007 Episodic Other gastrointestinal disorders (1 source) Diarrhea; Translations: [Diarrhea, unspecified] Onset: 04-05-2008 04-05-2008 Episodic Residual codes; unclassified (1 source) Insomnia; Translations: [Insomnia, unspecified] Onset: 02-27-2005 02-27-2005 Episodic Results Test Name Value Interpretation Reference Range Facil ity Vital Signs Date Time Vital Sign Value Performing Clinician Facility 07-10-2022 14:26-0500 Body height 170.2 cm Aren Mcarthur PA-C Work Phone: [facility] 07-10-2022 14:26-0500 Body weight 68.04 kg Aren Mcarthur PA-C Work Phone: [facility] 07-10-2022 14:26-0500 Diastolic blood pressure 84 mm[Hg] Aren Mcarthur PA-C Work Phone: [facility] 07-10-2022 14:26-0500 Heart rate 99 /min Aren Mcarthur PA-C Work Phone: [facility] 07-10-2022 14:26-0500 SaO2% (BldA) [Mass fraction] 97 % Aren Mcarthur PA-C Work Phone: [facility] 07-10-2022 14:26-0500 Systolic blood pressure 138 mm[Hg] Aren Mcarthur PA-C Work Phone: [facility] 06-07-2020 15:00-0500 Pulse (Heart Rate) 73 /min [facility] 06-07-2020 15:00-0500 Respiratory Rate 18 /min [facility] 06-07-2020 14:00-0500 BP Diastolic 73 mm[Hg] [facility] [place] 06-07-2020 14:00-0500 BP Systolic 132 mm[Hg] [facility] [place] 06-07-2020 13:30-0500 Pulse Oximetry 95 % [facility] [place] 06-07-2020 09:56-0500 Body Temperature 97.5 [degF] [facility] 06-07-2020 07:46-0500 BMI (Body Mass Index) 25.53 kg/m2 [facility] 06-07-2020 07:46-0500 Body weight 73.94 kg [facility] [place] 06-07-2020 07:46-0500 Height 170.2 cm [facility] [place] 12-16-2016 05:50-0400 BMI (Body Mass Index) 25.47 kg/m2 Lanny Davidnsho CREATIVE DESIGNER [facility] Work Phone: 12-16-2016 05:50-0400 Body Temperature 97.4 [degF] Lanny Yensho CREATIVE DESIGNER [facility] Work Phone: 12-16-2016 05:50-0400 BP Diastolic 83 mm[Hg] Lanny Davidnsho CREATIVE DESIGNER [facility] Work Phone: 12-16-2016 05:50-0400 BP Systolic 137 mm[Hg] Lanny Yensho CREATIVE DESIGNER [facility] Work Phone: 12-16-2016 05:50-0400 Height 173.99 cm Lanny Davidnsho CREATIVE DESIGNER [facility] Work Phone: 12-16-2016 05:50-0400 Pulse (Heart Rate) 73 /min Lanny Davidnsho CREATIVE DESIGNER [facility] Work Phone: 12-16-2016 05:50-0400 Respiratory Rate 18 /min Lanny Davidnsho CREATIVE DESIGNER [facility] Work Phone: 12-16-2016 05:50-0400 Weight 77.11 kg Lanny Davidnsho CREATIVE DESIGNER [facility] Work Phone: 08-28-2016 14:09-0400 BMI (Body Mass Index) 26.07 kg/m2 Angie Leigh [facility] Work Phone: 08-28-2016 14:09-0400 Body Temperature 97.4 [degF] Angie Leigh [facility] Work Phone: 08-28-2016 14:09-0400 BP Diastolic 90 mm[Hg] Angie Leigh [facility] Work Phone: 08-28-2016 14:09-0400 BP Systolic 152 mm[Hg] Angie Leigh [facility] Work Phone: 08-28-2016 14:09-0400 Height 173.99 cm Angie Leigh [facility] Work Phone: 08-28-2016 14:09-0400 Pulse (Heart Rate) 79 /min Angie Leigh [facility] Work Phone: 08-28-2016 14:09-0400 Pulse Oximetry 97 % Angie Leigh [facility] Work Phone: 08-28-2016 14:09-0400 Respiratory Rate 18 /min Angie Leigh [facility] Work Phone: 08-28-2016 14:09-0400 Weight 78.93 kg Angie Leigh [facility] Work Phone: 06-10-2016 11:39-0500 Body Temperature 96.98 [degF] Angie Reese [facility] Work Phone: 06-10-2016 11:39-0500 BSA (Body Surface Area) 1.96 m2 Angie Leigh [facility] Work Phone: 06-10-2016 11:39-0500 Height 173.99 cm Angie Reese [facility] Phone: 06-10-2016 11:39-0500 Weight 80.91 kg Angie Reese [facility] Phone: Encounters Encounter Date Encounter Type Care Provider Facility Start: 07-10-2022 End: 07-11-2022 ambulatory KRYSTYNA SANCHEZ Facility:[facility] Start: 07-10-2022 End: 07-11-2022 ambulatory KRYSTYNA SANCHEZ Facility:[facility] Start: 07-10-2022 End: 07-10-2022 Patient encounter procedure Aren Mcarthur PA-C Work Phone: Urology Procedures Date Procedure Procedure Detail Performing Clinician Start: 07-10-2022 Urnls dip stick/tabl et rgnt auto w/o microscopy Aren Mcarthur PA-C Work Phone: Start: 06-07-2020 Ecg routine ecg w/le ast 12 lds w/i&r Zulma Safjoni Work Phone: Start: 06-07-2020 CARDIAC CATH NURSING LOG 3m Scanning Start: 06-07-2020 End: 06-07-2020 Coagulation time activated Denis patricio Work Phone: Start: 06-07-2020 Catheterization and angiography procedure details panel Denis Rodriguez Work Phone: Start: 06-07-2020 Basic metabolic pane l calcium total Denis Rodriguez Work Phone: Start: 01-29-2016 End: 01-30-2016 Referral to respiratory physician Darryn Kessler Work Phone: Start: 09-10-2015 End: 12-11-2015 Follow Up Appt 3 months Monalisa champion CNP Work Phone: Start: 09-01-2015 End: 12-10-2015 Pulmonary Function Test - complete Darryn Kessler Work Phone: Start: 09-01-2015 End: 12-10-2015 Pulmonary stress test/simple Darryn kong Work Phone: Start: 08-05-2015 End: 08-07-2015 Bacteria sputum culture Monalisa champion CNP Work Phone: Start: 03-12-2015 End: 03-12-2015 Documentation of current medications Darryn Nat Kessler Work Phone: Start: 03-12-2015 End: 12-10-2015 Follow Up Appt 6 months Darryn Nat Kessler Work Phone: Start: 09-11-2014 End: 09-12-2014 Documentation of current medications Darryn Nat Kessler Work Phone: Start: 09-11-2014 End: 12-10-2015 Follow Up Appt 6 months Darryn Nat Kessler Work Phone: Start: 06-12-2014 End: 12-10-2015 Follow Up Appt 3 months Darryn Kessler Work Phone: Start: 06-12-2014 End: 12-10-2015 Pulmonary Fuction Test - complete Darryn Kessler Work Phone: Start: 06-12-2014 End: 12-10-2015 Pulmonary stress test/simple Darryn kong Work Phone: Plan of Treatment Date Care Activity Detail Author Start: 01-30-2029 DTaP/Tdap/Td vaccine (3 - Td) DTaP/Tdap/Td vaccine (3 - Td) [place] Start: 05-03-2022 ADVANCE DIRECTIVE DISCUSSION ADVANCE DIRECTIVE DISCUSSION [facility] Start: 05-03-2022 DEPRESSION ASSESSMENT DEPRESSION ASS ESSMENT [facility] Start: 03-03-2022 DIABETES SCREEN DIABETES SCREEN [facility] Start: 06-07-2021 Creatinine measurement Creatinine mo nitoring [place] Start: 06-07-2021 Potassium monitoring Potassium monit oring [place] Start: 12-24-2020 COVID-19 VACCINE (5 - Booster for Moderna series) COVID-19 VACCINE (5 - Booster for Moderna series) [facility] Start: 06-17-2020 End: 06-17-2020 Office Visit 06/17/2020 Office Visit Cardiology Zulma Martini, CANINE ENFORCEMENT OFFICER - ADULT PSYCHIATRIST [address] [place] [address] [phone] [facility] Start: 06-07-2020 End: 06-07-2021 Basic metabolic 2000 panel Basic Metabolic Panel Lab Routine S/P drug eluting coronary stent placement Coronary artery disease involving [place] coronary artery of [place] heart without angina pectoris Expected: 06/07/2020, Expires: 06/07/2021 [place] Immunizations Immunization Date Immunization Notes Care Provider Robbie linares 05-05-2013 influenza virus vacc ine, unspecified formulation Aren Mcarthur PA-C Work Phone: [facility] 03-29-2012 influenza virus vacc ine, unspecified formulation Aren Mcarthur PA-C Work Phone: [facility] Work Phone: 04-30-2011 influenza virus vacc ine, unspecified formulation Aren Mcarthur PA-C Work Phone: [facility] 03-25-2010 influenza virus vacc ine, unspecified formulation Aren Mcarthur PA-C Work Phone: [facility] Work Phone: 08-03-2009 pneumococcal polysaccharide vaccine, 23 valent Aren Mcarthur PA-C Work Phone: [facility] 02-08-2009 influenza virus vacc ine, unspecified formulation Aren Mcarthur PA-C Work Phone: [facility] Work Phone: 03-09-2008 influenza virus vacc ine, unspecified formulation Aren Mcarthur PA-C Work Phone: [facility] Work Phone: 01-24-2008 tetanus and diphther ia toxoids, adsorbed, preservative free, for adult use (2 Lf of tetanus toxoid and 2 Lf of diphtheria toxoid) Aren Mcarthur PA-C Work Phone: [facility] 04-04-2007 influenza virus vacc ine, unspecified formulation Aren Mcarthur PA-C Work Phone: [facility] Work Phone: 03-01-2006 influenza virus vacc ine, unspecified formulation Aren Mcarthur PA-C Work Phone: [facility] 03-12-2005 influenza virus vacc ine, unspecified formulation Aren Mcarthur PA-C Work Phone: [facility] Work Phone: 02-01-2003 pneumococcal polysaccharide vaccine, 23 valent Aren Mcarthur PA-C Work Phone: [facility] Work Phone: 05-07-1997 diphtheria and tetan us toxoids, adsorbed for pediatric use Aren Mcarthur PA-C Work Phone: [facility] Work Phone: Payers Date Payer Category Payer Private Health Insurance [id number] 2015 Private Health Insurance HU[employer]NA HUMANA MEDICARE SUPPLEMENT [id number] 2015-Present [phone] [address] [address] [place] [address] Indemnity [id number] 2009 Medicare [id number] 2009 Medicare MEDICARE MEDICAR E A AND B [id number] 2009-Present [phone] [address] [address] [place] [address] Medicare [id number] Social History Date Type Detail Facility Start: 05-31-2020 End: 07-10-2022 Tobacco smoking status NHIS Former smoker [facility] Work Phone: End: 01-27-2001 History of tobacco use Current smoker [place] Start: 05-31-2020 End: 07-10-2022 Cigarettes smoked current (pack per day) - Reported [place] Start: 05-31-2020 End: 07-10-2022 Tobacco use and exposure Never used [place] Start: 05-31-2020 Alcohol intake Ex-drinker (finding) [place] Start: 05-27-2020 History SDOH Alcohol Frequency 1 [place] Start: 05-31-2020 History SDOH Alcohol Std Drinks 99 [place], [place] Start: 1945 Sex Assigned At Not on file [place] Exposure to SARS-CoV -2 (event) Not sure [place] End: 01-27-2001 History of tobacco use Cigarette Smoker [facility] Work Phone: Start: 07-10-2022 Alcohol intake Current drinke r of alcohol (finding) [facility] Start: 03-03-2019 Alcohol Comment 1 shot at nigh t before bed [facility] Medical Equipment Procedure Code Equipment Code Equipment Origin al Text Equipment Identifier Dates Wire Felicity .045in Stainless Steel 5.5in Fixation Trocar Smooth Guide - [id number] Start: 04-07-2019 History of Present illness Narrative 07-10-2022 Aren Mcarthur PA-C - 07/10/2022 3:10 PM ESTLasydni Perez - 07/10/2022 2:20 PM EST Note Date & Type Note Facility 07-10-2022 History of Presen t illness Narrative Images from the original note were not included. [facility] NEW PATIENT CLINIC NOTE SERVICE DATE: 07/10/2022 SERVICE TIME: 3:11 PM NAME: Bette Astorga CHIEF COMPLAINT: Elevated PSA HISTORY OF PRESENT ILLNESS: Bette Astorga is a 77 year old male with PMH including CAD, HTN and COPD presenting for New Patient Consult for severely elevated PSA of 158.0 The patient reports he has not LUTS and has no bone pain, I discussed the PSA result and the likelihood of this indicating prostate cancer And further may be metastatic, we discussed testing going forward would be to diagnose prostate cancer by biopsy And then he can decide next steps which usually include Imaging to screen for metastatic disease assuming prostate cancer is found And a referral to Medical Oncology for further treatment discussion IsoPSA ordered on the off chance there is lab error and they will repeat a Total PSA as part of the test LUTS: None Other symptoms: LABS: Testosterone (ng/dL) Date Value 06/11/2008 301 No results found for: TESTFREE No results found for: PSA Hematocrit (%) Date Value 03/03/2019 44.0 11/09/2013 45.6 No results found for: PSA Creatinine Date Value Ref Range Status 03/03/2019 1.20 0.73 - 1.22 mg/dL Final 04/09/2015 1.50 (H) 0.70 - 1.40 mg/dL Final 11/09/2013 1.43 (H) 0.70 - 1.40 mg/dL Final MEDICATIONS: mirtazapine (REMERON) 15 mg tablet Take 15 mg by mouth daily at bedtime. fluticasone (FLONASE) 50 mcg/actuation nasal spray Use 1 Damon in each nostril once daily. verapamil SR (CALAN SR, ISOPTIN SR) 120 mg CR tablet 240 mg once daily. loperamide HCl (IMODIUM) 2 mg tab Take 2 mg by mouth as needed (diarrhea). budesonide (PULMICORT) 0.5 mg/2 mL nebulizer solution Use 0.5 mg via nebulizer twice daily. PERFOROMIST 20 mcg/2 mL nebu Use 20 mcg via nebulizer every 12 hours. tamsulosin ER (FLOMAX) 0.4 mg cp24 Take 0.4 mg by mouth once daily. clopidogrel (PLAVIX) 75 mg tablet Take 1 tablet by mouth once daily. ipratropium-albuterol 20-100 mcg/Puff aero inhaler Inhale 1 Puff as instructed every 6 hours as needed. Garlic ORAL Cap Take one(1) capsule daily. OTC NUTRITIONAL SUPPLEMENT red yeast rice 1200 mg daily ipratropium 20 mcg-albuterol 100 mcg (COMBIVENT RESPIMAT) 20-100 mcg/actuation inhaler NEEDED (Patient not taking: Reported on 07/10/2022) LORazepam (ATIVAN) 0.5 mg tab Take three tablets by mouth at bedtime as needed. (Patient not taking: Reported on 07/10/2022) Zvhwwobkgtu-Evfqxgxzi-Nzl C-Mn (GLUCOSAMINE CHONDROITIN MAXSTR) 500-400 mg cap Take 2 capsules by mouth once daily. (Patient not taking: Reported on 07/10/2022) piroxicam (FELDENE) 10 mg capsule Take 1 capsule by mouth once daily. (Patient not taking: Reported on 07/10/2022) nitroglycerin sublingual (NITROSTAT) 0.4 mg SUBLINGUAL SL tablet Dissolve 1 tablet under the tongue as needed. (Patient not taking: Reported on 05/09/2019 ) PAST MEDICAL HISTORY: PAST MEDICAL HISTORY Diagnosis Date Acute gastritis without mention of hemorrhage Acute myocardial infarction of other specified sites, episode of care unspecified 05/2007 Myocardial Infarction Asthma COPD (chronic obstructive pulmonary disease) (HCC) Diaphragmatic hernia without mention of obstruction or gangrene Fever and other physiologic disturbances of temperature regulation Hemorrhage of gastrointestinal tract, unspecified Malignant neoplasm of colon, unspecified site Obstructive chronic bronchitis with exacerbation (HCC) COPD Other diseases of lung, not elsewhere classified Reflux esophagitis Unspecified chronic bronchitis (HCC) Unspecified sinusitis (chronic) PAST SURGICAL HISTORY: PAST SURGICAL HISTORY Procedure Laterality Date CATARACT EXTRACTION HX Bilateral 2014 COLONOSCOPY FLX DX W/COLLJ SPEC WHEN PFRMD clean anastamosis, some radiation changes COLONOSCOPY FLX DX W/COLLJ SPEC WHEN PFRMD 08/14/09 Colonoscopy [facility] inpt COLONOSCOPY W/BIOPSY SINGLE/MULTIPLE 09/21/07 EGD TRANSORAL BIOPSY SINGLE/MULTIPLE 09/21/07 EXCISION NOSE POLYP(S),SIMPLE age 17 Nasal polypectomy HEMORRHOIDECTOMY NTRNL & XTRNL 1 COLUMN/GROUP HEMMORIDECTOMY INSJ TUNNELED CTR VAD W/SUBQ PORT AGE 5 YR/> 02/08/2008 Left Subclavian LAPS COLECTOMY PRTL W/COLOPXTSTMY LW ANAST 11/15/2007 Low cancer PAST SURGICAL HISTORY OF 2006 umbilical hernia repair PULMONARY FUNCTION TEST 05/10/03 RPR 1ST INGUN HRNA AGE 5 YRS/> REDUCIBLE 11/20/09 Right, sliding SEPTOPLASTY/SUBMUCOUS RESECJ W/WO CARTILAGE GRF Septoplasty TONSILLECTOMY PRIMARY/SECONDARY <AGE 12 Tonsillectomy TRANSCATH STENT ADDN VESSEL,PERCUT 05/30/2007 Transcath stent addn vessel percut- 3 stents TRANSCATH STENT INIT VESSEL,PERCUT 05/27/07 Transcath stent init vessel percut - FAMILY HISTORY: FAMILY HISTORY Problem Relation Age of Onset None Mother Heart Father CABG X4 Diabetes Father Heart Paternal Grandfather DE'S Diabetes Paternal Grandmother Emphysema Maternal Grandfather Heart Maternal Grandmother SOCIAL HISTORY: Social Connections: Not on file REVIEW OF SYSTEMS: GENERAL: No fever, chills, weight loss, or fatigue. ENMT: Negative CARDIOVASCULAR:NO CHEST PAIN, PALPITATIONS, ANKLE EDEMA RESPIRATORY: No chronic cough, wheezing, dyspnea, hemoptysis. GENITOURINARY: SEE HPI MUSCULOSKELETAL:NO CHRONIC BACK PAIN, ARTHRITIS, CHRONIC NECK PAIN SKIN: NO VARICOSE VEINS, RASH, ABNORMAL ITCHING HEME/LYMPH/IMMUNE:Negative for prolonged bleeding, bruising easily or swollen nodes NEUROLOGICAL: NO HEADACHES, NUMBNESS, SEIZURES, STROKE DIABETES: no All other systems reviewed and are negative PHYSICAL EXAMINATION: Blood pressure 138/84, pulse 99, height 170.2 cm (5' 7 ), weight 68 kg (150 lb), SpO2 97 %. GENERAL: WNL nutrition, no deformities, healthy appearing NEURO: Awake, alert and oriented x 3 and Normal gait PSYCH: No signs of depression, anxiety, or agitation ENMT (Ear, Nose, Mouth, Throat): No masses, adenopathy, icterus. Thyroid nonpalpable RESP: NL effort, no retractions or purse-lip breathing. CV: No extremity swelling, varices, edema, pallor, erythema GASTROINTESTINAL: Soft, nontender, nondistended, no masses. HERNIAS: None SKIN: No rash, lesions No palpable lymphadenopathy MUSCULOSKELETAL: Extremities normal. No deformities, edema, clubbing or skin discoloration. PROBLEM LIST REVIEW: Yes LABS: Results for orders placed or performed in visit on 07/10/22 UA DIP, URINE (POC) Result Value Ref Range GLUCOSE UA (POCT) Negative Negative mg/dL BILIRUBIN UA (POCT) Negative Negative KETONE UA (POCT) Negative Negative mg/dL SPECIFIC GRAVITY UA (POCT) 1.020 1.005 - 1.030 HEMOGLOBIN/BLOOD UA (POCT) Negative Negative PH UA (POCT) 5.5 4.5 - 8.0 PROTEIN UA (POCT) Negative Negative mg/dL UROBILINOGEN UA (POCT) 0.2 Normal E.U./dL NITRITE UA (POCT) Negative Negative LEUKOCYTES UA (POCT) Negative Negative COLOR UA (POCT) Yellow CLARITY UA (POCT) Clear PROCEDURES: PVR: 0 ml IMAGING: IMPRESSION/PLAN: 77 year old male with 1. Elevated prostate specific antigen (PSA) - ICD9: 790.93, ICD10: R97.20 > PSA -158.0 > IsoPSA > Biopsy for diagnosis, once confirmed prostate cancer > Bone Scan MRI and referral to Medical Oncology I spent a total of 40 minutes on the date of the service which included preparing to see the patient, face to face patient care, completing clinical documentation, obtaining and/or reviewing separately obtained history, performing a medically appropriate examination, counseling and educating the patient/family/caregiver, ordering medications, tests, or procedures, and care coordination. NTAALY Farley, LORETTA, CECILIA PSA,Total - Annual Screen on 07-06-2022 PSA,TOT SCREEN 158.00 ng/mL High 0.00-4.00 [facility] Comment on above: Result Comment: This test was performed using the TPSA assay method for the [employer] chemistry system. Values obtained with different assay methods cannot be used interchangably. When changing PSA assays in the course of monitoring a patient, additional sequential testing should be carried out to confirm baseline values. Performed By: #### [id number], L500.4050, L100.0100 ####[facility] [id number] [place], [address] documented in this encounter [facility] History of Past illness Narrative 09-09-2015 Note Date & Type Note Facility documented as of this encounter (statuses as of 07/22/2022) [facility] Evaluation note Note Date & Type Note Facility documented in this encounter [facility] Summary Purpose Family History No Family History Records FoundNo Family History Records FoundNo Family History Records Found Advance Directives Documents on File Type Date Recorded Patient Systems Program Manager Expl anation ACP-Advance Directive 06/07/2020 12:00 AM ACP-Power of Marketing Database Consultant 05/31/2020 12:44 PM Latest Code Status on File Code Status Date Activated Date Inactivated Comments Full Code 06/07/2020 10:20 AM Full Code 06/07/2020 7:37 AM 06/07/2020 10:20 AM Reason for Referral Status Reason Specialty Diagnoses / Procedures Referred By Contact Referred To Contact Open Specialty Services Required Cardiac Rehabilitation Diagnoses S/P drug eluting coronary stent placement Coronary artery disease involving [place] coronary artery of [place] heart without angina pectoris Zulma Martini APRN - CNP [address] [facility] [address] [place] [address] Discharge Instructions * Instructions* Zulma Martini APRN - CNP - 06/07/2020 Call your doctor with any medication questions or if you notice any side effects from your medications. If you are unable to fill your medications, please call your Data Processing Supervisor immediately. The office number is located with your follow-up appointment information. Call your doctor if any redness or drainage from the wound site. DO NOT stop taking your medication unless instructed to do so by your doctor. Read the drug information material that were given to you and take medications as instructed by your doctor. New drugs may have been added to your medications, that will strengthen your heart and prevent re-stenosis of the coronary arteries. Drink 6 glasses of water (8 ounces each) over the next 24 hours. Water helps clear the dye from your body. No alcoholic beverages for 24 hours. It may interfere with healing. No exercise or sex for 5 days. Call 911 for chest pain, arm pain, nausea, neck pain, dizziness or unusual sweating AND your pain has not relieved with 2 doses of Nitroglycerin. Call your doctor if a lump at the puncture site enlarges or is larger than marble size. Call your doctor for numbness, tingling, or swelling of the fingers, hand or wrist. Call your doctor for increased area or bruising with discoloration extending into the arm. If bleeding occurs, hold pressure with your thumb against the puncture site and your finger againstthe back of the wrist for 10 minutes, if BLEEDING continues CALL 911. OK to shower. No tub baths, swimming pools or hot tub soaking for three days. Wash site daily with soap and water, dry gently. The healing wound should remain soft and dry. Keepsite clean and dry, no soaking of wrist for three days (no cleaning or dish washing). Remove band aid the day after procedure and leave open to air. No bending of affected wrist for 24 hours. DO NOT lift more than three pounds for 3-5 days[address] driving for 24 hours. GIVE PCI PACKET (FROM PRINTING PRESS MACHINE OPERATOR) TO PATIENT Give Coronary Artery Discharge Booklet PLEASE CALL YOUR HEART DOCTOR IF YOU CANNOT GET YOUR MEDICATIONS. THE NUMBER IS LISTED WITH YOUR FOLLOW-UP APPOINTMENT. Procedure Sedation Instructions 1. If you have received sedation: you must have someone drive you home 2. You should not drive a car, operate machinery, drink alcohol or perform any activity that requires alertness for the rest of the day. The effects of the sedative should be gone by tomorrow. Blood work in 5-7 days, see orders Cardiac Rehab The Cardiac Rehabilitation Team at [facility] consists of highly skilled healthcare professionals, including nurses, physicians, and exercise physiologists all working together to help you return to a healthy, and active lifestyle. As a survivor of heart disease the program is designed to answer all of your questions about the disease through education, activity, monitored exercise, diet modification, and medication adherence. This program is proven to reduce reoccurrence of heart disease and reduce readmission. It is important for you to enroll in the program by attending orientation. For any questions regarding this valuable service please call # [phone] Orientation is available on all Wednesdays at 11:30 am location in the [address] documented in this encounter Assessments Diagnosis S/P drug eluting coronary stent placement- Primary Coronary artery disease involving [place] coronary artery of [place] heart without angina pectoris Abnormal nuclear stress test Other nonspecific abnormal cardiovascular system function study Hospital Course Note Name: Bette Astorga Date of Bi rth: 1945 Date of Admission: 06/07/2020 Date of Discharge: 06/07/2020 Admitting physician: Dr. Denis Rodriguez Discharge Attending: Zulma Martini, Primary Care Physician: ALESSANDRO CALABRESE Review of Systems: Review of Systems Constitutional: Negative for activity change, appetite change, diaphoresis, fatigue and unexpected weight change. HENT: Negative for facial swelling, hearing loss and trouble swallowing. Eyes: Negative for photophobia, discharge and visual disturbance. Respiratory: Negative for cough, chest tightness, shortness of breath, wheezing and stridor. Denies orthopnea Denies PND Cardiovascular: Negative for chest pain, palpitations and leg swelling. Gastrointestinal: Negative for abdominal distention, abdominal pain, blood in stool, constipation, diarrhea, nausea and vomiting. Endocrine: Negative for polydipsia, polyphagia and polyuria. Genitourinary: Negative for difficulty urinating, frequency and urgency. Mus (more content not included)... Additional Source Comments (unrecognized sect ion and content) No Status Records FoundNo Status Records FoundNo Status Records Found INFORMATION SOURCE (unrecogn ized section and content) DATE CREATED AUTHOR AUTHOR'S ORGANIZ ATION 06/12/2020 [facility] DATE CREATED AUTHOR AUTHOR'S ORGANIZ ATION 07/14/2022 [facility] Source Comments (unrecognize d section and content) In the event this informatio n is protected by the Federal Confidentiality of Alcohol and Drug Abuse Patient Records regulations: The Federal rules restrict any use of the information to criminally investigate or prosecute any alcohol or drug abuse patient.[facility] Reason for Visit (unrecogniz ed section and content) Care Teams (unrecognized sec tion and content) FOR RECORDS PERTAINING TO PATIENTS WHO ARE OR HAVE BEEN ENROLLED IN A CHEMICAL DEPENDENCY/SUBSTANCEABUSE PROGRAM, SOME INFORMATION MAY BE OMITTED. This clinical summary was aggregated from multiple sources. Caution should be exercised in using it in the provision of clinical care. This summary normalizes information from multiple sources, and as a consequence, information in this document may materially change the coding, format and clinical context of patient data. In addition, data may be omitted in some cases. CLINICAL DECISIONS SHOULD BE BASED ON THE PRIMARY CLINICAL RECORDS. [employer] [facility]. provides no warranty or guarantee of the accuracy or completeness of information in this document.
== END | disposition home or self-care (01) ==
PROVIDERS: PCP Internal Medicine; Referring Provider Surgery; Visit Provider Surgery
DX: I71.40 Abdominal aortic aneurysm, without rupture, unspecified (principal); I71.21 Aneurysm of the ascending aorta, without rupture
CPT/HCPCS: 93978

== ENCOUNTER → 2023-05-17 | Outpatient (CLI) | payer MEDICARE, OTHER, SELFPAY ==
[2023-03-29 10:01] VITALS: BMI 24.3
--- NOTE | 2023-05-17 12:52 | CDU_ITS ---
Reason For Study: Bilateral Carotid Stenosis Rt. Velocities/BP Lt. Velocities/BP Prox CCA 74.3/14.7 cm/sec. Prox CCA 55.4/11.9 cm/sec. Mid CCA 45.9/12.8 cm/sec. Mid CCA 53.5/11.0 cm/sec. Dist CCA 55.4/12.8 cm/sec. Dist CCA 50.0/13.3 cm/sec. Prox ICA 62.9/15.7 cm/sec. Prox ICA 70.9/22.9 cm/sec. Mid ICA 54.4/18.5 cm/sec. Mid ICA 81.4/25.6 cm/sec. Dist ICA 77.6/25.0 cm/sec. Dist ICA 71.2/25.0 cm/sec. Rt. ICA/CCA = 1.2. Lt. ICA/CCA = 1.5. Prox ECA 57.0/10.0 cm/sec. Prox ECA 66.0/8.4 cm/sec. Rt. Vert. 31.0/8.9 cm/sec. Lt. Vert. 40.7/16.2 cm/sec. Right Extracranial There is homogeneous, smooth atherosclerotic plaque noted in the right common carotid artery. There is heterogeneous, irregular atherosclerotic plaque noted in the right internal carotid artery. There is intimal thickening but no significant atherosclerotic plaque noted in the right external carotid artery. Antegrade flow is noted in the right vertebral artery. Left Extracranial There is homogeneous, smooth atherosclerotic plaque noted in the left common carotid artery. There is heterogeneous, irregular atherosclerotic plaque noted in the left internal carotid artery. The left internal carotid artery is very tortuous. There is homogeneous, smooth atherosclerotic plaque noted in the left external carotid artery. Antegrade flow is noted in the left vertebral artery. VL/Carotid Duplex Ultrasound Interpretation Summary Minimal irregular plaque at the proximal right internal carotid artery with les s than 50% stenosis Less than 50% stenosis right external carotid artery Irregular heterogenous plaque at the proximal left internal carotid artery with significant tortuosity noted but less than 50% stenosis. Less than 50% stenosis left external carotid artery Patent antegrade vertebral arteries bilaterally Findings do not demonstrate the degree of stenosis of the left internal carotid previously identified May 06, 2022 Ordering Physician: Sawyer Rodríguez Referring Physician: Krystyna Sanchez Performed By: Kelton Benavidez RVT
--- OUTSIDE RECORDS SUMMARY | 2023-05-17 13:14 | XMS RPT_ITS | CCD ---
Author Name Unknown Address [address] [place] [address] Organization [facility] Care Team Providers Care Belt Conveyor Drier Name Role Phone Lanny Mccall LPN Unavailable Unavailab Dee Cool Unavailable Unavailable Angie Leigh Unavailable Unavailable Angie Leigh Unavailable Unavailable Alessandro Calabrese Primary Care Provider KRYSTYNA SANCHEZ Primary Care Unavailable AREN MCARTHUR Referring Unavailable KRYSTYNA SANCHEZ Primary Care Unavailable AREN MCARTHUR Attending Unavailable Krystyna Sanchez MD Primary Care Provider [phone] Allergies Allergy Classification Reported Allergen(s) Allergy Type Date of Onset Reaction(s) Facility (9 sources) Adhesive Tape; Translations: [ADHESIVE TAPE] drug allergy 5 Rash [facility] Work Phone: (8 sources) amoxicillin / clavulanate; Translations: [AUGMENTIN] drug allergy 5 tingling and itching all over [facility] Work Phone: (9 sources) aspirin; Translations: [ASPIRIN] drug allergy 5 causes asthma [facility] Work Phone: (8 sources) atorvastatin drug allergy 5 myalgia [facility] Work Phone: (4 sources) metoprolol drug allergy 5 unknown [facility] Work Phone: (4 sources) metoprolol drug allergy 5 [facility] Work Phone: (4 sources) naproxen drug allergy 5 causes asthma [facility] Work Phone: (4 sources) naproxen drug allergy 5 [facility] Work Phone: (4 sources) PARoxetine drug allergy 5 unknown [facility] Work Phone: (7 sources) PARoxetine; Translations: [PAROXETINE] drug allergy 5 Unknown [facility] Work Phone: (8 sources) propoxyphene; Translations: [DARVON] drug allergy 5 unknown [facility] Work Phone: (8 sources) sertraline drug allergy 5 unknown [facility] Work Phone: (8 sources) simvastatin; Translations: [ZOCOR] drug allergy 5 myalgia [facility] Work Phone: (8 sources) Tetracyclines; Translations: [TETRACYCLINES] allergy to substance 5 unknown [facility] Work Phone: (4 sources) tiotropium drug allergy 5 [facility] Work Phone: (8 sources) RUBBING ALCOHOL; Translations: [RUBBING ALCOHOL] drug allergy 5 rash and villa skin [facility] Work Phone: (4 sources) SPIRIVA HANDIHALER drug allergy 5 gets nasty, mean grumpy [facility] Work Phone: (1 source) Aluminum aspirin Drug Allergy 1 Shortness Of Breath [place] (1 source) Amoxicillin Drug Allergy 1 Other (See Comments) [place] (1 source) atorvastatin Drug Allergy 1 Other (See Comments) [place] (3 sources) Clavulanate; Translations: [CLAVULANIC ACID] Drug Allergy 9 Unknown [place] (1 source) denatured ethanol Drug Allergy 1 Rash [place] (3 sources) Metoprolol; Translations: [METOPROLOL] Drug Allergy 5 Rash, Other (See Comments) [place] (3 sources) Naproxen; Translations: [NAPROXEN] Drug Allergy 5 Shortness Of Breath, Intolerance [place] (1 source) Propoxyphene Drug Allergy 1 [place] (3 sources) Sertraline; Translations: [SERTRALINE HCL] Drug Allergy 5 Intolerance [place] (3 sources) Simvastatin; Translations: [SIMVASTATIN] Drug Allergy 5 Intolerance [place] (1 source) tiotropium Drug Allergy 1 [place] (2 sources) Adhesive agent; Translations: [ADHESIVE] Propensity to adverse reactions to drug (disorder) 9 Rash [facility] Repository (2 sources) atorvastatin; Translations: [ATORVASTATIN] Drug Allergy 5 Intolerance [facility] Rep[facility] (2 sources) Doxycycline; Translations: [DOXYCYCLINE] Drug Allergy 7 Rash, Itching [facility] Repository (2 sources) PARoxetine; Translations: [PAROXETINE HCL] Drug Allergy 5 Intolerance [facility] Rep[facility] (2 sources) Propoxyphene; Translations: [PROPOXYPHENE HCL] Drug Allergy 5 Intolerance [facility] (2 sources) Sertraline; Translations: [SERTRALINE] Drug Allergy 5 Unknown [facility] Rep[facility] (2 sources) tiotropium; Translations: [TIOTROPIUM BROMIDE] Drug Allergy 5 Intolerance [facility] Rep[facility] (2 sources) ALCOHOL; Translations: [ALCOHOL] Propensity to adverse reactions to drug (disorder) 9 Hives [facility] Rep[facility] (2 sources) AMOXICILLIN-POT CLAVULANATE; Translations: [AMOXICILLIN-POT CLAVULANATE] Propensity to adverse reactions to drug (disorder) 5 Intolerance [facility] Rep[facility] (1 source) OTHER; Translations: [OTHER] Propensity to adverse reactions (disorder) 8 [facility] (1 source) Aspirin Drug Allergy 5 Intolerance [facility] Work Phone: (1 source) Environmental allergies [Other] Propensity to adverse reactions 6 [facility] (1 source) tape [Other] Propensity to adverse reactions 8 [facility] Work Phone: Medications Current Medications Medication [...] 25 mg by mouth daily 0 Active [place]-3 Fatty Acids (OMEGA-3 FISH OIL PO) (1 source) [place]-3 Fatty Ac ids (OMEGA-3 FISH OIL PO) [...] Coronary atherosclerosis; Translations: [Atherosclerotic heart disease of iroquois coronary artery without angina pectoris] Onset: 02-27-2005 [...] 170.2 cm Aren Mcarthur PA-C Work Phone: [facility] 07-10-2022 14:26-0500 Body weight 68.04 kg Aren Mcarthur PA-C Work Phone: [facility] 07-10-2022 14:26-0500 Diastolic blood pressure 84 mm[Hg] Aren Mcarthur PA-C Work Phone: [facility] 07-10-2022 14:26-0500 Heart rate 99 /min Aren Mcarthur PA-C Work Phone: [facility] 07-10-2022 14:26-0500 SaO2% (BldA) [Mass fraction] 97 % Aren Mcarthur PA-C Work Phone: [facility] 07-10-2022 14:26-0500 Systolic blood pressure 138 mm[Hg] Aren Mcarthur PA-C Work Phone: [facility] 06-07-2020 15:00-0500 Pulse (Heart Rate) 73 /min [facility] 06-07-2020 15:00-0500 Respiratory Rate 18 /min [facility] 06-07-2020 14:00-0500 BP Diastolic 73 mm[Hg] [facility] [place] 06-07-2020 14:00-0500 BP Systolic 132 mm[Hg] [facility] [place] 06-07-2020 13:30-0500 Pulse Oximetry 95 % [facility] [place] 06-07-2020 09:56-0500 Body Temperature 97.5 [degF] [facility] 06-07-2020 07:46-0500 BMI (Body Mass Index) 25.53 kg/m2 [facility] 06-07-2020 07:46-0500 Body weight 73.94 kg [facility] [place] 06-07-2020 07:46-0500 Height 170.2 cm [facility] [place] 12-16-2016 05:50-0400 BMI (Body Mass Index) 25.47 kg/m2 Lanny Davidnsho KNIFE FINISHER [facility] Work Phone: 12-16-2016 05:50-0400 Body Temperature 97.4 [degF] Lanny Yensho KNIFE FINISHER [facility] Work Phone: 12-16-2016 05:50-0400 BP Diastolic 83 mm[Hg] Lanny Davidnsho KNIFE FINISHER [facility] Work Phone: 12-16-2016 05:50-0400 BP Systolic 137 mm[Hg] Lanny Yensho KNIFE FINISHER [facility] Work Phone: 12-16-2016 05:50-0400 Height 173.99 cm Lanny Davidnsho KNIFE FINISHER [facility] Work Phone: 12-16-2016 05:50-0400 Pulse (Heart Rate) 73 /min Lanny Davidnsho KNIFE FINISHER [facility] Work Phone: 12-16-2016 05:50-0400 Respiratory Rate 18 /min Lanny Davidnsho KNIFE FINISHER [facility] Work Phone: 12-16-2016 05:50-0400 Weight 77.11 kg Lanny Davidnsho KNIFE FINISHER [facility] Work Phone: 08-28-2016 14:09-0400 BMI (Body Mass Index) 26.07 kg/m2 Angie Leigh [facility] Work Phone: 08-28-2016 14:09-0400 Body Temperature 97.4 [degF] Angie Leigh [facility] Work Phone: 08-28-2016 14:09-0400 BP Diastolic 90 mm[Hg] Angie Leigh [facility] Work Phone: 08-28-2016 14:09-0400 BP Systolic 152 mm[Hg] Angie Leigh [facility] Work Phone: 08-28-2016 14:09-0400 Height 173.99 cm Angie Leigh [facility] Work Phone: 08-28-2016 14:09-0400 Pulse (Heart Rate) 79 /min Angie Leigh [facility] Work Phone: 08-28-2016 14:09-0400 Pulse Oximetry 97 % Angie Leigh [facility] Work Phone: 08-28-2016 14:09-0400 Respiratory Rate 18 /min Angie Leigh [facility] Work Phone: 08-28-2016 14:09-0400 Weight 78.93 kg Angie Leigh [facility] Work Phone: 06-10-2016 11:39-0500 Body Temperature 96.98 [degF] Angie Reese [facility] Work Phone: 06-10-2016 11:39-0500 BSA (Body Surface Area) 1.96 m2 Angie Leigh [facility] Work Phone: 06-10-2016 11:39-0500 Height 173.99 cm Angie Reese [facility] Phone: 06-10-2016 11:39-0500 Weight 80.91 kg Angie Reese [facility] Phone: Encounters Encounter Date Encounter Type Care Provider Facility Start: 07-10-2022 End: 07-11-2022 ambulatory KRYSTYNA SANCHEZ Facility:[facility] Start: 07-10-2022 End: 07-11-2022 ambulatory KRYSTYNA SANCHEZ Facility:[facility] Start: 07-10-2022 End: 07-10-2022 Patient encounter [...] - Td) DTaP/Tdap/Td vaccine (3 - Td) [place] Start: 05-03-2022 ADVANCE DIRECTIVE DISCUSSION ADVANCE DIRECTIVE DISCUSSION [facility] Start: 05-03-2022 DEPRESSION ASSESSMENT DEPRESSION ASS ESSMENT [facility] Start: 03-03-2022 DIABETES SCREEN DIABETES SCREEN [facility] Start: 06-07-2021 Creatinine measurement Creatinine mo nitoring [place] Start: 06-07-2021 Potassium monitoring Potassium monit oring [place] Start: 12-24-2020 COVID-19 VACCINE (5 - Booster for Moderna series) COVID-19 VACCINE (5 - Booster for Moderna series) [facility] Start: 06-17-2020 End: 06-17-2020 Office Visit 06/17/2020 Office Visit Cardiology Zulma Martini, MASTER OCEAN - HOSTESS CASHIER [address] [place] [address] [phone] [facility] Start: 06-07-2020 End: 06-07-2021 Basic metabolic 2000 panel Basic Metabolic Panel Lab Routine S/P drug eluting coronary stent placement 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 Expected: 06/07/2020, Expires: 06/07/2021 [place] Immunizations Immunization Date Immunization Notes Care Provider Robbie linares 05-05-2013 influenza virus vacc ine, unspecified formulation Aren Mcarthur PA-C Work Phone: [facility] 03-29-2012 influenza virus vacc ine, unspecified formulation Aren Mcarthur PA-C Work Phone: [facility] Work Phone: 04-30-2011 influenza virus vacc ine, unspecified formulation Aren Mcarthur PA-C Work Phone: [facility] 03-25-2010 influenza virus vacc ine, unspecified formulation Aren Mcatrhur PA-C Work Phone: [facility] Work Phone: 08-03-2009 pneumococcal polysaccharide vaccine, 23 valent Aren Mcarthur PA-C Work Phone: [facility] 02-08-2009 influenza virus vacc ine, unspecified formulation Aren Mcarthur PA-C Work Phone: [facility] Work Phone: 03-09-2008 influenza virus vacc ine, unspecified formulation Aren Mcarthur PA-C Work Phone: [facility] Work Phone: 01-24-2008 tetanus and diphther ia toxoids, adsorbed, preservative free, for adult use (2 Lf of tetanus toxoid and 2 Lf of diphtheria toxoid) Aren Mcarthur PA-C Work Phone: [facility] 04-04-2007 influenza virus vacc ine, unspecified formulation Aren Mcarthur PA-C Work Phone: [facility] Work Phone: 03-01-2006 influenza virus vacc ine, unspecified formulation Aren Mcarthur PA-C Work Phone: [facility] 03-12-2005 influenza virus vacc ine, unspecified formulation Aren Mcarthur PA-C Work Phone: [facility] Work Phone: 02-01-2003 pneumococcal polysaccharide vaccine, 23 valent Aren Mcarthur PA-C Work Phone: [facility] Work Phone: 05-07-1997 diphtheria and tetan us toxoids, adsorbed for pediatric use Aren Mcarthur PA-C Work Phone: [facility] Work Phone: Payers Date Payer Category Payer Private Health Insurance [id number] 2015 Private Health Insurance HUMANA HUMANA MEDICARE SUPPLEMENT [id number] 2015-Present [phone] [address] [address] [place] [address] Indemnity [id number] 2009 Medicare [id number] 2009 Medicare MEDICARE MEDICAR E A AND B [id number] 2009-Present [phone] [address] [address] [place] [address] Medicare [id number] Social History Date Type Detail Facility Start: 05-31-2020 End: 07-10-2022 Tobacco smoking status NHIS Former smoker [facility] Work Phone: End: 01-27-2001 History of tobacco use Current smoker [place] Start: 05-31-2020 End: 07-10-2022 Cigarettes smoked current (pack per day) - Reported [place] Start: 05-31-2020 End: 07-10-2022 Tobacco use and exposure Never used [place] Start: 05-31-2020 Alcohol intake Ex-drinker (finding) [place] Start: 05-27-2020 History SDOH Alcohol Frequency 1 [place] Start: 05-31-2020 History SDOH Alcohol Std Drinks 99 [place] Start: 1945 Sex Assigned At Not on file [place] Exposure to SARS-CoV -2 (event) Not sure [place] End: 01-27-2001 History of tobacco use Cigarette Smoker [facility] Work Phone: Start: 07-10-2022 Alcohol intake Current drinke r of alcohol (finding) [facility] Start: 03-03-2019 Alcohol Comment 1 shot at nigh t before bed [facility] Medical Equipment Procedure Code Equipment Code Equipment Origin al Text Equipment Identifier Dates Wire Felicity .045in Stainless Steel 5.5in Fixation Trocar Smooth Guide - [id number] Start: 04-07-2019 History of Present illness Narrative 07-10-2022 Aren Mcarthur PA-C - 07/10/2022 3:10 PM ESTLasydni Perez - 07/10/2022 2:20 PM EST Note Date & Type Note Facility 07-10-2022 History of Presen t illness Narrative Images from the original note were not included. [facility] NEW PATIENT CLINIC NOTE [...] (FLONASE) 50 mcg/actuation nasal spray Use 1 [place] in each nostril once daily. verapamil SR [...] needed. (Patient not taking: Reported on 07/10/2022) Dqrmugsftuq-Qukhjzxlt-Jdb C-Mn (GLUCOSAMINE CHONDROITIN MAXSTR) 500-400 mg cap [...] CABG X4 Diabetes Father Heart Paternal Grandfather UT'S Diabetes Paternal Grandmother Emphysema Maternal Grandfather Heart [...] medications, tests, or procedures, and care coordination. NATALY Farley, LORETTA, CECILIA PSA,Total - Annual Screen on 07-06-2022 PSA,TOT SCREEN 158.00 ng/mL High 0.00-4.00 [facility] Comment on above: Result Comment: This test was performed using the TPSA assay method for the [employer] chemistry system. Values obtained with different assay methods cannot be used interchangably. When changing PSA assays in the course of monitoring a patient, additional sequential testing should be carried out to confirm baseline values. Performed By: #### L501.9910, L500.4050, L100.0100 ####[facility] [id number] [place], [address] documented in this encounter [facility] History of Past illness Narrative 09-09-2015 Note Date & Type Note Facility documented as of this encounter (statuses as of 07/22/2022) [facility] Evaluation note Note Date & Type Note Facility documented in this encounter [facility] Summary Purpose Family History No Family History Records FoundNo Family History Records FoundNo Family History Records Found Advance Directives Documents on File Type Date Recorded Patient Estate And Trust Tax Principal Expl anation ACP-Advance Directive 06/07/2020 12:00 AM ACP-Power of Armature Bander 05/31/2020 12:44 PM Latest Code Status on File Code Status Date Activated Date Inactivated Comments Full Code 06/07/2020 10:20 AM Full Code 06/07/2020 7:37 AM 06/07/2020 10:20 AM Reason for Referral Status Reason Specialty Diagnoses / Procedures Referred By Contact Referred To Contact [facility] Specialty Services Required Cardiac Rehabilitation Diagnoses S/P drug eluting coronary stent placement 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 [address] [place] [address] Discharge Instructions * Instructions* Zulma Martini APRN - CNP - 06/07/2020 Call your doctor with any medication questions or if you notice any side effects from your medications. If you are unable to fill your medications, please call your Avionics Installer immediately. The office number is located with [...] for 24 hours. GIVE PCI PACKET (FROM AGRICULTURAL SALES REPRESENTATIVE) TO PATIENT Give Coronary Artery Discharge Booklet [...] Cardiac Rehab The Cardiac Rehabilitation Team at 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 Abnormal nuclear stress [...] DATE CREATED AUTHOR AUTHOR'S ORGANIZ ATION 06/12/2020 [facility] DATE CREATED AUTHOR AUTHOR'S ORGANIZ ATION 07/14/2022 [facility] Source Comments (unrecognize d section and content) In the event this informatio n is protected by the Federal Confidentiality of Alcohol and Drug Abuse Patient Records regulations: The Federal rules restrict any use of the information to criminally investigate or prosecute any alcohol or drug abuse patient.[facility] Reason for Visit (unrecogniz ed section [...] BE BASED ON THE PRIMARY CLINICAL RECORDS. [employer] [facility]. provides no warranty or guarantee of the accuracy or completeness of information in this document.
== END | disposition home or self-care (01) ==
LOC: CVS 12:51
PROVIDERS: PCP Internal Medicine; Referring Provider Surgery; Visit Provider Surgery
DX: I65.22 Occlusion and stenosis of left carotid artery (principal)
CPT/HCPCS: 93880

== ENCOUNTER → 2023-08-10 | Outpatient (CLI) | payer MEDICARE, OTHER, SELFPAY ==
[2023-03-29 10:01] VITALS: BMI 24.3
[2023-08-10 15:48] LABS: PSA,Total- Diagnostic < 0.01 ng/mL (0.0-4.0)
== END | disposition home or self-care (01) ==
LOC: LAB 13:30
PROVIDERS: PCP Internal Medicine; Referring Provider Urology; Visit Provider Urology
DX: C61 Malignant neoplasm of prostate (principal)
CPT/HCPCS: 36415; 84153

== ENCOUNTER → 2023-10-20 | Outpatient (CLI) | payer MEDICARE, OTHER, SELFPAY ==
[2023-03-29 10:01] VITALS: BMI 24.3
[2023-10-20 15:41] LABS: Absolute Neutrophil Count 5.9 X10^3/uL (2.0-7.7); Basophil# 0.07 X10^3/uL; Basophil% 0.9 % (0-1); Eosinophil# 0.49 X10^3/uL; Eosinophils% 6.1 % (0-5); Hematocrit 41.6 % (40-54); Hemoglobin 13.8 g/dL (13.0-16.5); Lymphocyte % 12.5 % (19-41); Mean Corp Hgb Conc 33.2 g/dL (32-36); Mean Corpuscular Hgb 31.8 pg (27.0-32.0); Mean Corpuscular Volume 95.9 fL (80-94); Mean Platelet Vol. 10.8 fl (6.2-12.0); Monocyte# 0.56 X10^3/uL; NRBC Flagged by Analyzer 0 % (0-5); Neutrophil # 5.88 X10^3/uL (2.7-7.7); Neutrophil % 73.4 % (47-70); Platelet Count 347 K/mm3 (150-450); RBC Distribution Width CV 12.7 % (11.6-14.6); RBC Distribution Width SD 45.1 fl (35.1-43.9); Red Blood Count 4.34 M/mm3 (4.6-6.2)
[2023-10-20 16:40] LABS: ALB/GLOB Ratio 1.4 RATIO (0.9-2.4); AST(SGOT) 19 U/L (15-37); Alanine Aminotransfer ALT/SGPT 15 U/L (16-61); Alkaline Phosphatase 94 U/L (45-117); Anion Gap 8 (5-15); BUN 23 mg/dL (7-18); BUN/Creat Ratio 15.5 RATIO (10-20); Chloride 102 mmol/L (98-107); Cholesterol 194 mg/dL (200); Creatinine, Serum 1.48 mg/dL (0.70-1.30); EST Glomerular Filtration Rate 49 mL/min (>60); Est Glom Filt Rate - Afr Amer 59 mL/min (>60); Globulin 2.9 g/dL (2.2-4.2); Glucose 95 mg/dL (74-106); High Density Lipoprotein 80 mg/dL; Potassium 3.2 mmol/L (3.5-5.1); Protein, Total 6.9 g/dL (6.4-8.2); Sodium Level 138 mmol/L (136-145); Triglycerides 116 mg/dL; Very Low Density Lipoprotein 23 mg/dL (5-40)
== END | disposition home or self-care (01) ==
LOC: BIMLAB 13:29
PROVIDERS: PCP Internal Medicine; Referring Provider Internal Medicine; Visit Provider Internal Medicine
DX: I10 Essential (primary) hypertension (principal)
CPT/HCPCS: 36415; 80053; 80061; 85025

== ENCOUNTER → 2023-10-28 | Outpatient (CLI) | payer MEDICARE, OTHER, SELFPAY ==
[2023-03-29 10:01] VITALS: BMI 24.3
[2023-10-28 15:32] LABS: Anion Gap 9 (5-15); BUN 30 mg/dL (7-18); BUN/Creat Ratio 16.9 RATIO (10-20); Calcium,Total 9.3 mg/dL (8.5-10.1); Chloride 103 mmol/L (98-107); Creatinine, Serum 1.78 mg/dL (0.70-1.30); EST Glomerular Filtration Rate 39 mL/min (>60); Est Glom Filt Rate - Afr Amer 48 mL/min (>60); Glucose 103 mg/dL (74-106); Potassium 3.2 mmol/L (3.5-5.1); Sodium Level 139 mmol/L (136-145)
== END | disposition home or self-care (01) ==
LOC: BIMLAB 13:55
PROVIDERS: PCP Internal Medicine; Referring Provider Internal Medicine; Visit Provider Internal Medicine
DX: E87.6 Hypokalemia (principal)
CPT/HCPCS: 36415; 80048

== ENCOUNTER → 2023-11-09 | Outpatient (CLI) | payer MEDICARE, OTHER, SELFPAY ==
[2023-03-29 10:01] VITALS: BMI 24.3
== END | disposition home or self-care (01) ==
LOC: PSN 06:50
PROVIDERS: PCP Internal Medicine; Referring Provider Nurse Practitioner Acute Care; Visit Provider Nurse Practitioner Acute Care
DX: J44.9 Chronic obstructive pulmonary disease, unspecified (principal)
CPT/HCPCS: 94060; 94726; 94729

== ENCOUNTER → 2023-11-15 | Outpatient (CLI) | payer MEDICARE, OTHER, SELFPAY ==
[2023-03-29 10:01] VITALS: BMI 24.3
[2023-11-15 15:42] LABS: PSA,Total- Diagnostic < 0.01 ng/mL (0.0-4.0)
== END | disposition home or self-care (01) ==
LOC: BIMLAB 13:56
PROVIDERS: PCP Internal Medicine; Visit Provider Nurse Practitioner
DX: C61 Malignant neoplasm of prostate (principal)
CPT/HCPCS: 36415; 84153

== ENCOUNTER → 2024-02-29 | Outpatient (CLI) | payer MEDICARE, OTHER, SELFPAY ==
[2024-02-28 10:04] VITALS: BMI 24.3
[2024-02-29 13:46] LABS: PSA,Total- Diagnostic < 0.01 ng/mL (0.0-4.0)
== END | disposition home or self-care (01) ==
PROVIDERS: PCP Internal Medicine; Referring Provider Urology; Visit Provider Urology
DX: C61 Malignant neoplasm of prostate (principal)
CPT/HCPCS: 36415; 84153

== ENCOUNTER → 2024-03-23 | Outpatient (CLI) | payer MEDICARE, OTHER, SELFPAY ==
[2024-02-28 10:04] VITALS: BMI 24.3
[2024-03-23 15:11] LABS: Absolute Lymphocyte Count 1.28 X10^3/uL (0.83-4.51); Absolute Neutrophil Count 6.7 X10^3/uL (2.0-7.7); Basophil# 0.07 X10^3/uL; Basophil% 0.8 % (0-1); Eosinophil# 0.12 X10^3/uL; Eosinophils% 1.3 % (0-5); Hemoglobin 13.8 g/dL (13.0-16.5); Lymphocyte # 1.28 X10^3/ul (0.83-4.51); Lymphocyte % 14.3 % (19-41); Mean Corp Hgb Conc 33.7 g/dL (32-36); Mean Corpuscular Hgb 33.3 pg (27.0-32.0); Monocyte# 0.75 X10^3/uL; Monocyte% 8.4 % (0-10); NRBC Flagged by Analyzer 0 % (0-5); Neutrophil # 6.69 X10^3/uL (2.7-7.7); Neutrophil % 74.9 % (47-70); Platelet Count 401 K/mm3 (150-450); RBC Distribution Width CV 14.6 % (11.6-14.6); RBC Distribution Width SD 53.2 fl (35.1-43.9); Red Blood Count 4.14 M/mm3 (4.6-6.2); White Blood Count 8.9 K/mm3 (4.4-11.0)
== END | disposition home or self-care (01) ==
LOC: BIMLAB 13:21
PROVIDERS: PCP Internal Medicine; Referring Provider Nurse Practitioner Acute Care; Visit Provider Nurse Practitioner Acute Care
DX: K62.5 Hemorrhage of anus and rectum (principal)
CPT/HCPCS: 36415; 85025

== ENCOUNTER 2024-04-11 13:25 | Emergency (ER) | payer MEDICARE, OTHER, SELFPAY ==
[2024-02-28 10:04] VITALS: BMI 24.3
[2024-04-11 13:28] VITALS: BP 149/85; PULSE 101; RESP 20; TEMP 36.4; O2SAT 96; BMI 21.7
[2024-04-11 13:38] VITALS: O2SAT 97
--- NOTE | 2024-04-11 13:48 | EKG12_ITS ---
Test Reason : SOB Blood Pressure : */* mmHG Vent. Rate : 82 BPM Atrial Rate : 82 BPM P-R Int : 142 ms QRS Dur : 94 ms QT Int : 392 ms P-R-T Axes : 74 -45 76 degrees QTcB Int : 457 ms Sinus rhythm with occasional Premature ventricular complexes Left axis deviation Septal infarct (cited on or before 01-Nov-2022) Abnormal ECG Confirmed by TRACY RODRIGUEZ, ANGELES ([id number]), technical editor RACIEL GUTIÉRREZ ([id number]) on 04/12/2024 11:42:03 AM Referred By: Confirmed By: ANGELES MOLINA MD
[2024-04-11 14:07] LABS: Absolute Lymphocyte Count 0.79 X10^3/uL (0.83-4.51); Absolute Neutrophil Count 8.8 X10^3/uL (2.0-7.7); Basophil# 0.07 X10^3/uL; Basophil% 0.7 % (0-1); Eosinophils% 0.9 % (0-5); Hematocrit 38.4 % (40-54); Hemoglobin 13.5 g/dL (13.0-16.5); Lymphocyte # 0.79 X10^3/ul (0.83-4.51); Lymphocyte % 7.4 % (19-41); Mean Corp Hgb Conc 35.2 g/dL (32-36); Mean Corpuscular Hgb 34.5 pg (27.0-32.0); Mean Corpuscular Volume 98.2 fL (80-94); Mean Platelet Vol. 9.3 fl (6.2-12.0); Monocyte# 0.78 X10^3/uL; Monocyte% 7.4 % (0-10); NRBC Flagged by Analyzer 0 % (0-5); Neutrophil # 8.83 X10^3/uL (2.7-7.7); Neutrophil % 83.2 % (47-70); Platelet Count 325 K/mm3 (150-450); RBC Distribution Width CV 14.8 % (11.6-14.6); RBC Distribution Width SD 53.6 fl (35.1-43.9); Red Blood Count 3.91 M/mm3 (4.6-6.2); White Blood Count 10.6 K/mm3 (4.4-11.0)
[2024-04-11] MEDS: Ipratropium/Albuterol Sulfate 3 ML AMPUL.NEB INHALATION (14:09)
[2024-04-11] MEDS: Albuterol 2.5 MG/3 ML VIAL.NEB. INHALATION ×3 (14:09)
[2024-04-11 14:10] VITALS: PULSE 83; RESP 16
--- NOTE | 2024-04-11 14:18 | RAD_ITS ---
STUDY: X-RAY CHEST REASON FOR EXAM: Male, 78 years old. Shortness of breath, chest tightness TECHNIQUE: PA and lateral views of the chest. COMPARISON: Comparison is made with prior study dated November 30, 2022. FINDINGS: EKG electrodes are seen. There is hyperinflation of the lungs consistent with chronic obstructive lung disease (COPD). Stable increased markings at the lung bases slightly worse on the left side suggestive of scarring. There is no demonstrated pleural abnormality. Normal size heart. Normal mediastinum and nya. There is prominence of the pulmonary hilar arteries without peripheral pulmonary vascular congestion, suggesting pulmonary hypertension. There is atherosclerotic calcification of the aortic arch with tortuosity. Normal visualized thoracic spine. Normal visualized ribs, clavicles, and shoulders. There is no demonstrated abnormality of the visualized soft tissue structures of the upper abdomen. RAD/Chest PA and Lateral IMPRESSION: Hyperinflation and COPD. Findings suggest some bibasilar scarring more prominent at the left lung base. Electronically Signed: Baljeet Thurman MD at 14:46 EST ,
[2024-04-11 14:24] LABS: ALB/GLOB Ratio 1.2 RATIO (0.9-2.4); AST(SGOT) 17 U/L (15-37); Alanine Aminotransfer ALT/SGPT 13 U/L (16-61); Albumin, Serum 3.3 g/dL (3.2-5.0); Alkaline Phosphatase 73 U/L (45-117); Anion Gap 8 (5-15); BUN 34 mg/dL (7-18); BUN/Creat Ratio 20.7 RATIO (10-20); Calcium,Total 9.4 mg/dL (8.5-10.1); Chloride 107 mmol/L (98-107); Creatinine, Serum 1.64 mg/dL (0.70-1.30); EST Glomerular Filtration Rate 43 mL/min (>60); Est Glom Filt Rate - Afr Amer 52 mL/min (>60); Estimated Creatinine Clearance 32.41 ml/min; Globulin 2.8 g/dL (2.2-4.2); Glucose 104 mg/dL (74-106); Potassium 2.9 mmol/L (3.5-5.1); Protein, Total 6.1 g/dL (6.4-8.2); Sodium Level 141 mmol/L (136-145); Troponin-I HS (w/2H Reflex) 11 pg/mL (3.0-78.0)
[2024-04-11 15:27] VITALS: BP 153/79; PULSE 74; RESP 16; O2SAT 94
--- NOTE | 2024-04-11 15:37 | EDS_ITS ---
HPI History of Present Illness Chief Complaint: Shortness of Breath Detail of Chief Complaint: Increased shortness of breath from baseline Informant: patient Onset/Context/Timing Onset: Days (History of chronic dyspnea and dyspnea on exertion that is worse past couple of days) Context: gradual Timing: Continuous and Waxes and wanes Quality: Positive for Dyspnea on exertion and Wheezing (Completed a burst of prednisone 1 to 2 weeks ago.); Negative for Orthopnea or PND Current Severity: Mild Maximum Severity: Moderate Worsened by: Exertion; Not Worsened By Lying flat or Coughing Relieved by: Nothing Associated Symptoms cough, rhinorrhea, post nasal drip and clear sputum; Negative for ear pain, fever, sore throat, subjective, chills or sweats Chest Pain: Positive for None Narrative Narrative: Patient 78-year-old male. He has history of COPD with bronchospasm, heart failure with reduced ejection fraction, atherosclerotic heart disease with placement of multiple stents, non-STEMI, iron deficiency anemia, hypertension with a personal history of malignant neoplasm of the large intestine. He has chronic diarrhea due to partial colectomy. He has had diarrhea since 2007. He also has history of endovascular stent for abdominal aortic aneurysm. He contacted his wholesale loan processor to recommend he come to the emergency room because of increased sputum production and shortness of breath. He is dyspnea with activity that is worse compared to baseline. He denies fever or chills. He has chronic rhinorrhea and congestion. He does have a cough productive of clear- colored sputum. This is unusual for him. He denies fever or chills. He denies history of VTE. He denies leg pain, swelling discoloration. He denies black or maroon-colored stool. He is on an antithrombotic, Plavix 75 mg daily. He is not on an anticoagulant. PE Risk Factors: Negative for Cancer, OCP + Smoking + > 35, Prior DVT or PE, Recent immobilization, Recent surgery or Recent travel Prior similar symptoms: Yes Recent Illness/Hospitalization: No PFSH PFSH Medical History Preoperative evaluation to rule out surgical contraindication Asthmatic bronchitis with exacerbation Nocturia Malignant neoplasm of colon, unspecified Heart disease Emphysema, unspecified Anxiety Frequency of micturition Chronic kidney disease, stage 3b Trigger finger Prostate CA Partial bowel obstruction Complete small bowel obstruction Elevated PSA Therapeutic drug monitoring Wears glasses Arthritis Easy bruising Excessive bleeding Back pain On home oxygen therapy Asthma Anemia Cancer Alcohol abuse Kidney stones Former smoker AAA (abdominal aortic aneurysm) Myocardial infarct Coronary artery disease Low back pain Epistaxis Sinus bradycardia Left inguinal hernia Essential (primary) hypertension Hyperlipidemia Atherosclerotic heart disease of [place] coronary artery without 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) History of ST elevation myocardial infarction (STEMI) (05/27/07) Insomnia Iron deficiency Abdominal aortic aneurysm (AAA) greater than 5.5 cm in diameter in male Hypoxia Bronchiectasis Allergy to dog dander Short bowel syndrome BPH (benign prostatic hyperplasia) Personal history of other malignant neoplasm of rectum, rectosigmoid junction, and anus Tachycardia 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 classification History of colon cancer COPD (chronic obstructive pulmonary disease) Home Medications ?Medication ?Instructions ?Recorded ?Last Taken ?Type fluticasone propionate 50 1 spray intranasal BID congestion 05/09/20 07/24/22 History mcg/actuation nasal spray,suspension albuterol sulfate 90 mcg/actuation 2 puff inhalation Q4H PRN 07/02/21 Unknown Rx aerosol inhaler (Ventolin HFA) shortness of breath or wheezing #18 grams nitroglycerin 0.4 mg sublingual 0.4 mg sublingual Q5M PRN 11/16/22 Unknown Rx tablet Cardiac/Chest Pain #20 tabs leuprolide (3 month) 22.5 mg (3 22.5 mg subcut [id number] 12/07/22 Unknown History month) subcutaneous syringe ([employer]) Disability Placard #1 ea 02/11/23 Unknown Rx verapamil 240 mg tablet,extended 240 mg PO QHS heart #90 tabs 05/05/23 Unknown Rx release formoterol fumarate 20 mcg/2 mL 2 ml inhalation Q12H copd #120 mL 05/06/23 Unknown Rx solution for nebulization (Perforomist) budesonide 0.5 mg/2 mL suspension 0.5 mg (2 mL) inhalation Q12H #180 07/02/23 Unknown Rx for nebulization mL tamsulosin 0.4 mg capsule 0.4 mg PO BID prostate #180 caps 10/18/23 Unknown Rx ipratropium 20 mcg-albuterol 100 1 puff inhalation Q6H #4 grams 12/08/23 Unknown Rx mcg/actuation mist for inhalation (Combivent Respimat) isosorbide mononitrate 30 mg 30 mg PO DAILY #30 TABLETS 12/10/23 Unknown Rx tablet,extended release 24 hr furosemide 40 mg tablet 40 mg PO DAILY PRN edema #30 tabs 12/13/23 Unknown Rx clopidogrel 75 mg tablet 75 mg PO DAILY #90 tabs 02/10/24 Unknown Rx hydrocortisone 2.5 % topical cream 1 applic AL QD-BID PRN rectal 03/21/24 Unknown Rx with perineal applicator bleeding #30 grams doxycycline monohydrate 100 mg 100 mg PO BID #14 CAPSULES 04/11/24 Unknown Rx capsule prednisone 10 mg tablet 10 mg PO UD #33 tabs 04/11/24 Unknown Rx Allergy/AdvReac Type Severity Reaction Status Date / Time aspirin Allergy Shortness Verified 04/11/24 13:28 of breath adhesive AdvReac Rash Verified 04/11/24 13:28 amoxicillin trihydrate (From AdvReac Other Verified 04/11/24 13:28 Augmentin) atorvastatin calcium (From AdvReac leg cramps Verified 04/11/24 13:28 Lipitor) isopropyl alcohol AdvReac Rash Verified 04/11/24 13:28 metoprolol succinate (From AdvReac Rash Verified 04/11/24 13:28 Toprol XL) naproxen (From Naprosyn) AdvReac Shortness Verified 04/11/24 13:28 of breath paroxetine HCl (From Paxil) AdvReac Unknown Verified 04/11/24 13:28 potassium clavulanate (From AdvReac tingling Verified 04/11/24 13:28 Augmentin) all over propoxyphene HCl (From AdvReac Unknown Verified 04/11/24 13:28 Darvon) sertraline HCl (From Zoloft) AdvReac Unknown Verified 04/11/24 13:28 simvastatin (From Zocor) AdvReac Unknown Verified 04/11/24 13:28 tiotropium bromide (From AdvReac Other Verified 04/11/24 13:28 Spiriva with HandiHaler) Family History Father Heart disease Hypertension High cholesterol CVA (cerebral vascular accident) Mother Dementia Surgical History H/O hernia repair History of left inguinal hernia repair (06/2021) Hx of thumb surgery History of esophagogastroduodenoscopy (EGD) Hx of colonoscopy Hx of sinus surgery History of endovascular stent graft for abdominal aortic aneurysm (AAA) (06/25/20) History of left heart catheterization (05/24/20) History of coronary artery stent placement (11/27/22) Hx of umbilical hernia repair Hx of appendectomy History of tonsillectomy and adenoidectomy Hx of bilateral cataract extraction Status post laparoscopic colectomy history of right eye surgery History of right inguinal hernia repair History of tonsillectomy Social History Smoking Status: Former smoker pack-years: 67 second hand exposure: No alcohol intake: former details: Previous nightly drinker. Stopped 2021 substance use type: marijuana caffeine: Yes Type: coffee Number of servings: 4 what type of physical activity do you participate in: other details: pulmonary rehab frequency: 3-4 times per week additional social history: Has had blood transfusion ROS ROS ED Constitutional Constitutional ED: Denies chills, fever(s), sweats or weight loss Eyes Eyes: Denies blurry vision or change in vision ENT ENT ED: Reports rhinorrhea; Denies ear pain or sore throat Cardiovascular Cardiovascular: Denies chest pain, orthopnea, palpitations, paroxysmal nocturnal dyspnea or racing heartbeat Respiratory/Chest Respiratory/Chest: Reports cough, dyspnea, dyspnea on exertion and sputum; Denies orthopnea or paroxysmal nocturnal dyspnea Gastrointestinal Gastrointestinal: Reports diarrhea; Denies abdominal pain, nausea or vomiting Genitourinary Genitourinary ED: Denies dysuria, hematuria or urinary frequency Musculoskeletal Musculoskeletal: Denies arthralgias or myalgias Integumentary Denies rash Neurologic Neurologic: Denies headache(s) or paresthesias Endocrine Endocrinology: Denies cold intolerance or heat intolerance Hematologic/Lymphatic Hematologic/Lymphatic: Denies easy bleeding or easy bruising EXAM Physical Exam Const Vital Signs: 04/11/24 13:28 04/11/24 13:38 04/11/24 14:10 Temperature 97.5 F L Temperature Source Oral Pulse Rate 101 H 83 Respiratory Rate 20 H 16 Respiratory Effort Short of Breath Respiratory Depth Shallow Respiratory Pattern Tachypnea Normal Blood Pressure 149/85 H Blood Pressure Mean 106 Pulse Ox 96 Oxygen Delivery Method Room Air Room Air 04/11/24 15:27 Temperature Temperature Source Pulse Rate 74 Respiratory Rate 16 Respiratory Effort Respiratory Depth Respiratory Pattern Blood Pressure 153/79 H Blood Pressure Mean 103 Pulse Ox 94 Oxygen Delivery Method Room Air Positive well nourished and well developed Constitutional Narrative: Patient appears slightly dyspneic. General Appearance ED: well developed; Negative for pallor HEENT Reports moist mucous membranes HEENT Narrative: Head is atraumatic and normocephalic. Ears normal. Nares patent. Posterior pharynx is normal. Eyes PERRL and EOMs intact bilaterally General Eye ED: Negative for pale conjunctiva or scleral icterus Neck no lymphadenopathy, supple, no meningeal signs and no JVD Resp normal respiratory effort and No clear to auscultation bilaterally Resp Narrative: Patient has bilateral expiratory wheezing with increased expiratory phase and decreased air movement bilaterally. Cardio regular rate, regular rhythm, S1 normal heart sound, S2 normal heart sound and no murmurs GI non-tender, non-distended and no masses GI Narrative: There is no palp pulsatile mass or abdominal bruit. Auscultation: normoactive bowel sounds Palpation: soft Back/Spine no CVA tenderness Extremity Extremity Narrative: There is no asymmetry, swelling, discoloration, leg vein distention, palpable cords or tenderness along the distribution of the deep venous system. Neuro oriented x3 and CN's II-XII intact bilaterally Sensorium / Orientation: alert Speech: speech normal Psych mental status grossly normal Skin no wounds and skin turgor normal General Skin Exam: Negative for jaundice or pallor MDM MDM MDM Narrative Medical decision making narrative: Differential diagnosis would include exacerbation of COPD with bronchospasm due to viral versus bacterial infection. Will obtain chest x-ray to assess for pneumonia. Doubt pneumothorax. Patient's history is not consistent with PE. He does report chest tightness. This is not related to change in position or exertion. This may be due to his COPD. Will obtain troponin to assess for cardiac etiology. History & Record Review Additional record(s) reviewed:: Prior outpatient record (Note authored by Monalisa Best for pulmonary visit for COPD/asthma. Seen by his PCP October for hypertension.), Prior ED visit, Prior labs and Other (Seen by Dr. Marshall Alva for primary malignant neoplasm of the prostate with high risk of recurrence due to [place] score of 8-10.) Lab Data Attestation: I reviewed the patient's lab results. Lab results narrative: White count is normal with slight shift of 83% segs. H&H is unremarkable. Indices are slightly elevated. BUN and creatinine are 34 and 1.64 with an estimated GFR of 43. This is close to his baseline. Glucose is normal. CO2 and anion gap are normal. First troponin is 11. 2-hour troponin is pending. Repeat troponin is 11 with a delta of 0. Suspect the chest tightness was due to his COPD exacerbation. Since he has sputum which is not normal for him he was placed on a short course of doxycycline as well as prednisone taper. Labs: Laboratory Results - last 24 hr 04/11/24 04/11/24 13:58 16:04 WBC 10.6 RBC 3.91 L Hgb 13.5 Hct 38.4 L MCV 98.2 H MCH 34.5 H MCHC 35.2 RDW Std Deviation 53.6 H RDW Coeff of Kylee 14.8 H Plt Count 325 MPV 9.3 Immature Gran % (Auto) 0.400 Neut % (Auto) 83.2 H Lymph % (Auto) 7.4 L [place] % (Auto) 7.4 Eos % (Auto) 0.9 Baso % (Auto) 0.7 Absolute Neuts (auto) 8.8 H Absolute Lymphs (auto) 0.79 L Nucleated RBC % 0 Sodium 141 Potassium 2.9 L Chloride 107 Carbon Dioxide 27.0 Anion Gap 8 BUN 34 H Creatinine 1.64 H Estim Creat Clear Calc 32.41 Est GFR (MDRD) Af Amer 52 L Est GFR (MDRD) Non-Af 43 L BUN/Creatinine Ratio 20.7 H Glucose 104 Calcium 9.4 Total Bilirubin 1.00 AST 17 ALT 13 L Alkaline Phosphatase 73 Troponin I High Sens 11 11 Total Protein 6.1 L Albumin 3.3 Globulin 2.8 Albumin/Globulin Ratio 1.2 Radiography Chest X-Ray - ED: 2 View and Read by ED Physician (Chronic changes with hyperaeration. Cardiac silhouette and size normal. There is probably atelectasis versus scarring lower lung ye. There is no obvious infiltrate. There is no effusion. This is dependently reviewed interpreted by me.) Diagnostic Testing: Clinical Impression(s) from Imaging Studies Chest X-Ray 04/11/24 14:18 IMPRESSION: Hyperinflation and COPD. Findings suggest some bibasilar scarring more prominent at the left lung base. Electronically Signed: Baljeet Thurman MD at 14:46 EST , Discharge Plan Triage Chief Complaint: Shortness of Breath ED Provider: Xavi Almonte Dx/Rx/DC Orders Clinical Impression: Acute exacerbation of chronic obstructive pulmonary disease, HFrEF (heart failure with reduced ejection fraction), History of endovascular stent graft for abdominal aortic aneurysm, Atherosclerotic heart disease of [place] coronary artery without angina pectoris, Acute bronchospasm, Bronchitis, Chronic dyspnea, Stage 3 chronic kidney disease Instructions: ED COPD Flare Prescriptions: New prednisone 10 mg tablet 10 mg PO UD Qty: 33 0RF Rx Instructions: Take 4 tablets daily for 3 days, then 3 daily for 3 days, then 2 daily for 3 days, then 1 a day for 3 days then 1 QOD for 3 doses. doxycycline monohydrate 100 mg capsule 100 mg PO BID Qty: 14 0RF No Action fluticasone propionate 50 mcg/actuation spray,suspension 1 spray INTRANASAL BID Rx Instructions: administer into each nostril Eligard (3 month) 22.5 mg syringe 22.5 mg subcut [id number] hydrocortisone 2.5 % cream with perineal applicator 1 applic AL QD-BID PRN (Reason: rectal bleeding) Qty: 30 0RF nitroglycerin 0.4 mg Tablet, Sublingual 0.4 mg sublingual Q5M PRN (Reason: Cardiac/Chest Pain) Qty: 20 0RF albuterol sulfate [Ventolin HFA] 90 mcg/actuation HFA aerosol inhaler 2 puff inhalation Q4H PRN (Reason: shortness of breath or wheezing) Qty: 18 6RF (DME) Disability Placard See Rx Instructions .ROUTE .MEDSUPPLY Qty: 1 0RF Rx Instructions: [id number] verapamil 240 mg tablet extended release 240 mg PO QHS Qty: 90 3RF formoterol fumarate [Perforomist] 20 mcg/2 mL solution for nebulization 2 ml inhalation Q12H Qty: 120 11RF budesonide 0.5 mg/2 mL suspension for nebulization 0.5 mg INHALATION Q12H Qty: 180 11RF tamsulosin 0.4 mg capsule 0.4 mg PO BID Qty: 180 1RF Rx Instructions: take one tab PO bid Combivent Respimat 20-100 mcg/actuation mist 1 puff inhalation Q6H Qty: 4 11RF isosorbide mononitrate 30 mg tablet extended release 24 hr 30 mg PO DAILY Qty: 30 11RF furosemide 40 mg tablet 40 mg PO DAILY PRN (Reason: edema) Qty: 30 6RF clopidogrel 75 mg tablet 75 mg PO DAILY Qty: 90 3RF Primary Care Provider: Krystyna Sanchez Referrals: Krystyna Sanchez MD [Primary Care Provider] - Print Language: Luxembourgish Disposition Disposition: Home, Self Care
[2024-04-11 16:02] LABS: Reflex Troponin-HS? (from REC) Y
[2024-04-11 16:38] LABS: Troponin-I HS 11 pg/mL (3.0-78.0)
[2024-04-11 17:00] VITALS: BP 145/62; PULSE 72; RESP 15; TEMP 36.6; O2SAT 98
== END 2024-04-11 17:11 | disposition home or self-care (01) ==
PROVIDERS: Emergency Provider Emergency Medicine; PCP Internal Medicine; Visit Provider Emergency Medicine
DX: J44.1 Chronic obstructive pulmonary disease with (acute) exacerbation (principal); I13.0 Hypertensive heart and chronic kidney disease with heart failure and stage 1 through stage 4 chronic kidney disease, or unspecified chronic kidney disease; I50.22 Chronic systolic (congestive) heart failure; N18.30 Chronic kidney disease, stage 3 unspecified; D50.9 Iron deficiency anemia, unspecified; Z79.02 Long term (current) use of antithrombotics/antiplatelets; K52.9 Noninfective gastroenteritis and colitis, unspecified; I25.10 Atherosclerotic heart disease of native coronary artery without angina pectoris; E78.5 Hyperlipidemia, unspecified; Z87.891 Personal history of nicotine dependence; R09.82 Postnasal drip; J98.01 Acute bronchospasm; F12.90 Cannabis use, unspecified, uncomplicated; Z95.5 Presence of coronary angioplasty implant and graft; Z85.038 Personal history of other malignant neoplasm of large intestine; Z85.46 Personal history of malignant neoplasm of prostate; I25.2 Old myocardial infarction
CPT/HCPCS: 71046; 80053; 84484; 85025; 93005; 94640; 99284; A4216

== ENCOUNTER → 2024-04-19 | Outpatient (CLI) | payer MEDICARE, OTHER, SELFPAY ==
[2024-02-28 10:04] VITALS: BMI 24.3
[2024-04-19 16:01] LABS: Anion Gap 6 (5-15); BUN 30 mg/dL (7-18); Calcium,Total 9.8 mg/dL (8.5-10.1); Chloride 102 mmol/L (98-107); Creatinine, Serum 1.67 mg/dL (0.70-1.30); EST Glomerular Filtration Rate 42 mL/min (>60); Est Glom Filt Rate - Afr Amer 51 mL/min (>60); Glucose 93 mg/dL (74-106); Potassium 2.8 mmol/L (3.5-5.1); Sodium Level 140 mmol/L (136-145)
== END | disposition home or self-care (01) ==
LOC: BIMLAB 13:18
PROVIDERS: PCP Internal Medicine; Referring Provider Internal Medicine; Visit Provider Internal Medicine
DX: E87.6 Hypokalemia (principal)
CPT/HCPCS: 36415; 80048

== ENCOUNTER 2024-04-30 10:06 | Emergency (ER) | payer MEDICARE, OTHER, SELFPAY ==
[2024-02-28 10:04] VITALS: BMI 24.3
[2024-04-30 10:07] VITALS: BP 176/90; PULSE 89; RESP 18; TEMP 36.7; O2SAT 97; BMI 22.1
[2024-04-30 10:14] VITALS: BP 153/95; PULSE 88; RESP 18; O2SAT 98
--- NOTE | 2024-04-30 10:15 | EX.ED.DYSGE1 ---
HPI History of Present Illness Chief Complaint: Shortness of Breath [facility] Medical History (Updated 04/30/24 @ 12:[address] Faizan Dotson, DO) BPH (benign prostatic hyperplasia) Preoperative evaluation to rule out surgical contraindication Asthmatic bronchitis with exacerbation Nocturia Malignant neoplasm of colon, unspecified Heart disease Emphysema, unspecified Anxiety Frequency of micturition Chronic kidney disease, stage 3b Trigger finger Prostate CA Partial bowel obstruction Complete small bowel obstruction Elevated PSA Therapeutic drug monitoring Wears glasses Arthritis Easy bruising Excessive bleeding Back pain On home oxygen therapy Asthma Anemia Cancer Alcohol abuse Kidney stones Former smoker AAA (abdominal aortic aneurysm) Myocardial infarct Coronary artery disease Low back pain Epistaxis Sinus bradycardia Left inguinal hernia Essential (primary) hypertension Hyperlipidemia Atherosclerotic heart disease of [place] coronary artery without 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) History of ST elevation myocardial infarction (STEMI) (05/27/07) Insomnia Iron deficiency Abdominal aortic aneurysm (AAA) greater than 5.5 cm in diameter in male Hypoxia Bronchiectasis Allergy to dog dander Short bowel syndrome Personal history of other malignant neoplasm of rectum, rectosigmoid junction, and anus Tachycardia 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 classification History of colon cancer COPD (chronic obstructive pulmonary disease) Home Medications ?Medication ?Instructions ?Recorded ?Last Taken ?Type fluticasone propionate 50 1 spray intranasal BID congestion 05/09/20 07/24/22 History mcg/actuation nasal spray,suspension albuterol sulfate 90 mcg/actuation 2 puff inhalation Q4H PRN 07/02/21 Unknown Rx aerosol inhaler (Ventolin HFA) shortness of breath or wheezing #18 grams nitroglycerin 0.4 mg sublingual 0.4 mg sublingual Q5M PRN 11/16/22 Unknown Rx tablet Cardiac/Chest Pain #20 tabs leuprolide (3 month) 22.5 mg (3 22.5 mg subcut [id number] 12/07/22 Unknown History month) subcutaneous syringe (Korin) Disability Placard #1 ea 02/11/23 Unknown Rx verapamil 240 mg tablet,extended 240 mg PO QHS heart #90 tabs 05/05/23 Unknown Rx release formoterol fumarate 20 mcg/2 mL 2 ml inhalation Q12H copd #120 mL 05/06/23 Unknown Rx solution for nebulization (Perforomist) budesonide 0.5 mg/2 mL suspension 0.5 mg (2 mL) inhalation Q12H #180 07/02/23 Unknown Rx for nebulization mL tamsulosin 0.4 mg capsule 0.4 mg PO BID prostate #180 caps 10/18/23 Unknown Rx ipratropium 20 mcg-albuterol 100 1 puff inhalation Q6H #4 grams 12/08/23 Unknown Rx mcg/actuation mist for inhalation (Combivent Respimat) isosorbide mononitrate 30 mg 30 mg PO DAILY #30 TABLETS 12/10/23 Unknown Rx tablet,extended release 24 hr furosemide 40 mg tablet 40 mg PO DAILY PRN edema #30 tabs 12/13/23 Unknown Rx clopidogrel 75 mg tablet 75 mg PO DAILY #90 tabs 02/10/24 Unknown Rx hydrocortisone 2.5 % topical cream 1 applic NC QD-BID PRN rectal 03/21/24 Unknown Rx with perineal applicator bleeding #30 grams prednisone 50 mg tablet 50 mg PO DAILY #5 tabs 04/30/24 Unknown Rx Allergy/AdvReac Type Severity Reaction Status Date / Time aspirin Allergy Shortness Verified 04/30/24 10:09 of breath adhesive AdvReac Rash Verified 04/30/24 10:09 amoxicillin trihydrate (From AdvReac Other Verified 04/30/24 10:09 Augmentin) atorvastatin calcium (From AdvReac leg cramps Verified 04/30/24 10:09 Lipitor) isopropyl alcohol AdvReac Rash Verified 04/30/24 10:09 metoprolol succinate (From AdvReac Rash Verified 04/30/24 10:09 Toprol XL) naproxen (From Naprosyn) AdvReac Shortness Verified 04/30/24 10:09 of breath paroxetine HCl (From Paxil) AdvReac Unknown Verified 04/30/24 10:09 potassium clavulanate (From AdvReac tingling Verified 04/30/24 10:09 Augmentin) all over propoxyphene HCl (From AdvReac Unknown Verified 04/30/24 10:09 Darvon) sertraline HCl (From Zoloft) AdvReac Unknown Verified 04/30/24 10:09 simvastatin (From Zocor) AdvReac Unknown Verified 04/30/24 10:09 tiotropium bromide (From AdvReac Other Verified 04/30/24 10:09 Spiriva with HandiHaler) Family History Father Heart disease Hypertension High cholesterol CVA (cerebral vascular accident) Mother Dementia Surgical History H/O hernia repair History of left inguinal hernia repair (06/2021) Hx of thumb surgery History of esophagogastroduodenoscopy (EGD) Hx of colonoscopy Hx of sinus surgery History of endovascular stent graft for abdominal aortic aneurysm (AAA) (06/25/20) History of left heart catheterization (05/24/20) History of coronary artery stent placement (11/27/22) Hx of umbilical hernia repair Hx of appendectomy History of tonsillectomy and adenoidectomy Hx of bilateral cataract extraction Status post laparoscopic colectomy history of right eye surgery History of right inguinal hernia repair History of tonsillectomy Social History Smoking Status: Former smoker pack-years: 67 second hand exposure: No alcohol intake: former details: Previous nightly drinker. Stopped 2021 substance use type: marijuana caffeine: Yes Type: coffee Number of servings: 4 what type of physical activity do you participate in: other details: pulmonary rehab frequency: 3-4 times per week additional social history: Has had blood transfusion EXAM Physical Exam Const Vital Signs: 04/30/24 10:07 04/30/24 10:14 04/30/24 11:20 Temperature 98.1 F Temperature Source Oral Pulse Rate 89 88 84 Respiratory Rate 18 18 16 Respiratory Pattern Normal Blood Pressure 176/90 H 153/95 H Blood Pressure Mean 118 114 Pulse Ox 97 98 Oxygen Delivery Method Room Air Room Air 04/30/24 11:43 Temperature Temperature Source Pulse Rate 84 Respiratory Rate 16 Respiratory Pattern Blood Pressure 159/109 H Blood Pressure Mean 125 Pulse Ox 95 Oxygen Delivery Method Room Air MDM MDM MDM Narrative Medical decision making narrative: HISTORY OF PRESENT ILLNESS: 79-year-old M Here for shortness of breath. Notes he wears 3 L at home. Notes he also has some bright red blood per rectum that he attributes to hemorrhoid. States that he is always short of breath but has had chest congestion for the last 3 days. No sick contacts. The patient denies recent surgery in the last 4 weeks or immobilization in the last 3 days, denies previous diagnosis of DVT or PE, hemoptysis, unilateral leg swelling or malignancy with treatment the last 6 months or palliative. No estrogen use noted. Does not feel sick. Denies leg swelling. Notes he used his inhaler prior to arrival which provided some relief of chest tightness. He denies ana chest pain. Denies palpitations. REVIEW OF SYSTEMS: Pertinent positives: Shortness of breath, Chest congestion, wheezing, cough, bright red blood per rectum Pertinent negatives: Leg swelling, chest pain, PHYSICAL EXAM: Nursing triage notes reviewed, Vital signs reviewed Constitutional: please see mdm HENT: MMM Eyes: Pupils equal round and reactive to light, Extraocular muscles intact Neck: No stridor, no JVD, full neck ROM Lungs: Prolonged expiratory phase of respiration, bilateral wheezing. no increased work of breathing, no conversational dyspnea, no accessory muscle use, no nasal flaring. No respiratory distress noted Heart: Regular rate and rhythm, No murmurs, No rubs and No gallops, 2+ distal pulses (radial, femoral, posterior tibial) in all extremities Abdomen: Soft, there is no tenderness, rigidity, rebound or guarding, no obvious peritoneal signs, no palpable pulsatile abdominal masses, no auscultated abdominal bruit : No CVAT Extremities: No edema Neuro: No new focal neurological deficits, cranial nerves II through XII intact, 5/5 strength in all present extremities. Intact sensation to light touch in all present extremities, 2+ reflexes bilateral patella tendons. Skin: No rash or lesions noted rectal: Performed rn staff RN in the room showed no active bleeding, showed hemorrhoid at 3 o'clock position MEDICAL DECISION MAKING: Chief Complaint: External records reviewed: Reviewed last GI visit from March Factors affecting care: CAD status post stents, COPD on home oxygen, prostate cancer, CKD, prior blood per rectum Social determinants of health: Tobacco abuse History obtained from others: none Consults: none [facility] Narrative: The patient was initially hemodynamically stable, afebrile and nontoxic-appearing saturating at 98% on room air. Exam with prolonged expiratory phase, bilateral wheezes consistent with COPD exacerbation. I considered the following differential diagnosis: Pneumonia, viral illness, CHF, ACS, arrhythmia, anemia, PE I obtained a broad lab and imaging workup to further elucidate the etiology of the patient's complaints. While considered pulmonary embolism as a potential etiology the patient had a low risk Wells score, he had no stigmata of VTE and as such have a low suspicion for PE. No indication for D-dimer or CTA of the chest at this time. Clinically the patient's exam is most consistent with a COPD exacerbation as I treat empirically with a DuoNeb breathing treatment and Solu-Medrol ALL IMAGES (IF OBTAINED) HAVE BEEN PERSONALLY REVIEWED AND INTERPRETED BY MYSELF. EKG with normal sinus rhythm rate of 77, left axis deviation, normal intervals, QTc 463, no STEMI BNP within the limit suggestive no increased volume, CHF, increased ventricular stretch CBC with mild anemia (not significantly changed from baseline), no leukocytosis to suggest a STEMI inflammation, no thrombocytopenia BMP without significant electrolyte disturbances, no sign of endorgan hypoperfusion or metabolic acidosis, no DOMENICA High-sensitivity troponin is negative, no evidence of myocardial ischemia I have personally reviewed the patient's chest x-ray. Chest x-ray consistent with COPD. No obvious pneumonia. The synthesis of the patient's history, physical exam, labs images suggest likely COPD exacerbation. While the patient did display mild anemia I do not suspect his bleeding hemorrhoid is significant because of shortness of breath given focal lung findings and history of COPD. Will encourage continued breathing treatments at home and give a short course of steroids. Patient ready has home oxygen as such I feel safe with him being discharged. Strict return precautions were discussed. The patient and/or family, caregivers express understanding. The patient and/or family, caregivers agrees with the plan. Shared decision making: I will have a discussion with the patient and or visitors regarding risk/benefits of further testing or admission. They will be made aware of of the risk/benefits inherent in this decision they will be given the opportunity to voice understanding. Total critical care time today provided was at least 0 minutes. This excludes separately billable procedures. Critical care time (if documented) is secondary to the patient having high probability of clinically significant/life threatening deterioration in the patient's condition which required my urgent intervention. Impression: 1. Dyspnea 2. Bright red blood per rectum 3. Hemorrhoid 4. Anemia 5. COPD exacerbation Dispo: Discharge home This note was generated with Digital Lumens dictation software. It may contain incorrect words, spelling, and punctuation that were not noted in review of the chart prior to signing. Lab Data Labs: Laboratory Results - last 24 hr 04/30/24 10:54 WBC 10.2 RBC 3.68 L Hgb 12.7 L Hct 37.8 L MCV 102.7 H MCH 34.5 H MCHC 33.6 RDW Std Deviation 55.5 H RDW Coeff of Kylee 14.6 Plt Count 335 MPV 9.0 Immature Gran % (Auto) 0.700 Neut % (Auto) 84.0 H Lymph % (Auto) 6.2 L [place] % (Auto) 5.9 Eos % (Auto) 2.7 Baso % (Auto) 0.5 Absolute Neuts (auto) 8.6 H Absolute Lymphs (auto) 0.63 L Nucleated RBC % 0 Sodium 141 Potassium 3.5 Chloride 106 Carbon Dioxide 27.0 Anion Gap 8 BUN 20 H Creatinine 1.42 H Estim Creat Clear Calc 37.73 Est GFR (MDRD) Af Amer 62 Est GFR (MDRD) Non-Af 51 L BUN/Creatinine Ratio 14.1 Glucose 114 H Calcium 9.3 Troponin I High Sens 8 B-Natriuretic Peptide 73.3 Radiography Diagnostic Testing: Clinical Impression(s) from Imaging Studies Chest X-Ray 04/30/24 11:00 IMPRESSION: COPD with chronic scarring. Small irregular pulmonary nodules or scars in the upper lobe; recommend follow-up CT. Electronically Signed: Shantell Walsh MD at 11:32 EST , Discharge Plan Triage Chief Complaint: Shortness of Breath ED Provider: Faizan Dotson Dx/Rx/DC Orders Clinical Impression: COPD exacerbation Instructions: Discharge Instructions: COPD Prescriptions: New prednisone 50 mg tablet 50 mg PO DAILY Qty: 5 0RF No Action fluticasone propionate 50 mcg/actuation spray,suspension 1 spray INTRANASAL BID Rx Instructions: administer into each nostril Eligard (3 month) 22.5 mg syringe 22.5 mg subcut [id number] hydrocortisone 2.5 % cream with perineal applicator 1 applic NC QD-BID PRN (Reason: rectal bleeding) Qty: 30 0RF nitroglycerin 0.4 mg Tablet, Sublingual 0.4 mg sublingual Q5M PRN (Reason: Cardiac/Chest Pain) Qty: 20 0RF albuterol sulfate [Ventolin HFA] 90 mcg/actuation HFA aerosol inhaler 2 puff inhalation Q4H PRN (Reason: shortness of breath or wheezing) Qty: 18 6RF (DME) Disability Placard See Rx Instructions .ROUTE .MEDSUPPLY Qty: 1 0RF Rx Instructions: [id number] verapamil 240 mg tablet extended release 240 mg PO QHS Qty: 90 3RF formoterol fumarate [Perforomist] 20 mcg/2 mL solution for nebulization 2 ml inhalation Q12H Qty: 120 11RF budesonide 0.5 mg/2 mL suspension for nebulization 0.5 mg INHALATION Q12H Qty: 180 11RF tamsulosin 0.4 mg capsule 0.4 mg PO BID Qty: 180 1RF Rx Instructions: take one tab PO bid Combivent Respimat 20-100 mcg/actuation mist 1 puff inhalation Q6H Qty: 4 11RF isosorbide mononitrate 30 mg tablet extended release 24 hr 30 mg PO DAILY Qty: 30 11RF furosemide 40 mg tablet 40 mg PO DAILY PRN (Reason: edema) Qty: 30 6RF clopidogrel 75 mg tablet 75 mg PO DAILY Qty: 90 3RF Primary Care Provider: Krystyna Sanchez Referrals: Krystyna Sanchez MD [Primary Care Provider] - Activity Restrictions/Additional Instructions: Thank you for trusting us with your care today! Your x-ray and labs are reassuring. Suspect you are suffering from a COPD exacerbation. Please prednisone as prescribed. Please return to the emergency department if your symptoms change or worsen. Please follow with your primary care physician for further outpatient evaluation and management. Print Language: Swedish Disposition Disposition: Home, Self Care Discharge Date/Time: 04/30/24 12:57
--- NOTE | 2024-04-30 10:43 | EKG12_ITS ---
Test Reason : Blood Pressure : */* mmHG Vent. Rate : 77 BPM Atrial Rate : 77 BPM P-R Int : 154 ms QRS Dur : 100 ms QT Int : 410 ms P-R-T Axes : 77 -43 69 degrees QTcB Int : 463 ms Normal sinus rhythm Left axis deviation Incomplete right bundle branch block Septal infarct , age undetermined Abnormal ECG Confirmed by TRACY RODRIGUEZ, ANGELES ([id number]), news video editor CHELSEA HASSAN ([id number]) on 05/01/2024 10:48:20 AM Referred By: NATHANAEL Confirmed By: ANGELES MOLINA MD
[2024-04-30] MEDS: MethylPREDNISolone 125 MG/2 ML Vial IV (10:56)
--- NOTE | 2024-04-30 11:00 | RAD_ITS ---
HISTORY: SOB, cough r/o PNA. TECHNIQUE: XR Chest 1 View. COMPARISON: 04/11/2024. FINDINGS: CARDIOMEDIASTINAL BORDERS: Cardiac silhouette within normal limits in size. Mediastinal contour also unchanged with calcification of the aortic knob. LUNGS: Chronic hyperinflation with mild bibasilar scarring. Small irregular nodular opacities in the upper lobes again seen PLEURA: No pleural effusion or pneumothorax seen. OSSEOUS STRUCTURES: Unremarkable. RAD/Chest 1 View (Portable) IMPRESSION: COPD with chronic scarring. Small irregular pulmonary nodules or scars in the upper lobe; recommend follow-up CT. Electronically Signed: Shantell Walsh MD at 11:32 EST ,
[2024-04-30 11:09] LABS: Absolute Lymphocyte Count 0.63 X10^3/uL (0.83-4.51); Absolute Neutrophil Count 8.6 X10^3/uL (2.0-7.7); Basophil# 0.05 X10^3/uL; Basophil% 0.5 % (0-1); Eosinophil# 0.28 X10^3/uL; Eosinophils% 2.7 % (0-5); Hematocrit 37.8 % (40-54); Hemoglobin 12.7 g/dL (13.0-16.5); Lymphocyte # 0.63 X10^3/ul (0.83-4.51); Lymphocyte % 6.2 % (19-41); Mean Corp Hgb Conc 33.6 g/dL (32-36); Mean Corpuscular Hgb 34.5 pg (27.0-32.0); Mean Corpuscular Volume 102.7 fL (80-94); Monocyte% 5.9 % (0-10); NRBC Flagged by Analyzer 0 % (0-5); Neutrophil # 8.61 X10^3/uL (2.7-7.7); Platelet Count 335 K/mm3 (150-450); RBC Distribution Width CV 14.6 % (11.6-14.6); RBC Distribution Width SD 55.5 fl (35.1-43.9); Red Blood Count 3.68 M/mm3 (4.6-6.2); White Blood Count 10.2 K/mm3 (4.4-11.0)
[2024-04-30] MEDS: Ipratropium/Albuterol Sulfate 3 ML AMPUL.NEB INHALATION (11:13)
[2024-04-30 11:20] VITALS: PULSE 84; RESP 16
[2024-04-30 11:34] LABS: Anion Gap 8 (5-15); BUN 20 mg/dL (7-18); BUN/Creat Ratio 14.1 RATIO (10-20); Calcium,Total 9.3 mg/dL (8.5-10.1); Chloride 106 mmol/L (98-107); Creatinine, Serum 1.42 mg/dL (0.70-1.30); EST Glomerular Filtration Rate 51 mL/min (>60); Est Glom Filt Rate - Afr Amer 62 mL/min (>60); Estimated Creatinine Clearance 37.73 ml/min; Glucose 114 mg/dL (74-106); Potassium 3.5 mmol/L (3.5-5.1); Sodium Level 141 mmol/L (136-145); Troponin-I HS 8 pg/mL (3.0-78.0)
[2024-04-30 11:43] VITALS: BP 159/109; PULSE 84; RESP 16; O2SAT 95
[2024-04-30 11:45] LABS: BNP,B-Type NATRIURETIC PEPTIDE 73.3 pg/mL (0-100)
== END 2024-04-30 12:57 | disposition home or self-care (01) ==
PROVIDERS: Emergency Provider Emergency Medicine; PCP Internal Medicine; Visit Provider Emergency Medicine
DX: R06.00 Dyspnea, unspecified (principal); J44.1 Chronic obstructive pulmonary disease with (acute) exacerbation; I12.9 Hypertensive chronic kidney disease with stage 1 through stage 4 chronic kidney disease, or unspecified chronic kidney disease; I25.10 Atherosclerotic heart disease of native coronary artery without angina pectoris; N18.9 Chronic kidney disease, unspecified; D64.9 Anemia, unspecified; K64.9 Unspecified hemorrhoids; E78.5 Hyperlipidemia, unspecified; Z87.891 Personal history of nicotine dependence; Z95.5 Presence of coronary angioplasty implant and graft; I25.2 Old myocardial infarction; Z85.038 Personal history of other malignant neoplasm of large intestine
CPT/HCPCS: 71045; 80048; 83880; 84484; 85025; 87631; 93005; 94640; 96374; 99285

== ENCOUNTER → 2024-05-04 | Outpatient (CLI) | payer MEDICARE, OTHER, SELFPAY ==
[2024-02-28 10:04] VITALS: BMI 24.3
--- NOTE | 2024-05-04 07:49 | AAVD_ITS ---
Reason For Study: HX AAA w/ Endo repair Aorta Measurements Proximal aorta measures1.67 x 1.64cm. in longitudinal axis. Proximal aorta measures1.66cm. in cross-sectional axis. Mid aorta measures2.82 x 2.65cm. in cross- sectional axis. Mid aorta measures2.71cm. in longitudinal axis. Endograft noted at Mid / Dist AO Residual AAA measures approximately 4.54cm x 4.18cm Rt Limb Prox Trans - 1.20cm x 1.21cm Rt Limb Prox Long - 1.20cm Rt Limb Prox PSV - 65.0 cm/s Rt Limb Dist Trans - 1.59cm x 1.49cm Rt Limb Dist Long - 1.48cm Rt Limb Dist PSV - 37.0 cm/s Lt Limb Prox Trans - 1.34cm x 1.20cm Lt Limb Prox Long - 1.26cm Lt Limb Prox PSV - 25.6 cm/s Lt Limb Dist Trans - 1.40cm x 1.42cm Lt Limb Dist Long - 1.35cm Lt Limb Dist PSV - 41.2 cm/s. Left Iliac Artery Left iliac artery measures 1.54 x 1.47 cm. in the cross-sectional axis. Left iliac artery measures 1.49 cm. in the longitudinal axis. Peak systolic velocity in the left iliac artery measures 45.7 cm/sec. Lt EIA PSV - 218.6 cm/s. Right Iliac Artery Right iliac artery measures 2.23 x 2.02 cm. in the cross-sectional axis. Right iliac artery measures 1.98 cm. in the longitudinal axis. Peak systolic velocity in the right iliac artery measures 115.4 cm/sec. Rt EIA PSV = 193.7cm/s. Procedure Aorta IVC Iliac vasculature or bypass grafts [id number]. The exam was diagnostic. Exam performed in department. VL/Abd Aortic/IVC Duplex scan Interpretation Summary Patent aortic endograft with normal velocities throughout. Residual aneurysm sac 4.54 cm with no endoleak visualized. Ordering Physician: Tracy Klein Referring Physician: Krystyna Sanchez Performed By: Kelton Benavidez RVT
--- NOTE | 2024-05-04 07:49 | CDU_ITS ---
Reason For Study: Stenosis Rt. Velocities/BP Lt. Velocities/BP Prox CCA 59.8/8.8 cm/sec. Prox CCA 63.3/6.6 cm/sec. Mid CCA 44.7/10.7 cm/sec. Mid CCA 41.5/9.2 cm/sec. Dist CCA 40.9/10.7 cm/sec. Dist CCA 44.1/11.9 cm/sec. Prox ICA 45.0/12.8 cm/sec. Prox ICA 32.3/10.4 cm/sec. Mid ICA 81.8/29.0 cm/sec. Mid ICA 51.4/13.5 cm/sec. Dist ICA 65.1/22.2 cm/sec. Dist ICA 83.7/21.7 cm/sec. Rt. ICA/CCA = 1.8. Lt. ICA/CCA = 2.0. Prox ECA 53.2/6.0 cm/sec. Prox ECA 54.6/8.4 cm/sec. Rt. Vert. 36.7/7.5 cm/sec. Lt. Vert. 49.4/15.9 cm/sec. Right Extracranial There is intimal thickening but no significant atherosclerotic plaque noted in the right common carotid artery. There is heterogeneous, irregular atherosclerotic plaque noted in the right internal carotid artery. There is intimal thickening but no significant atherosclerotic plaque noted in the right external carotid artery. Antegrade flow is noted in the right vertebral artery. Left Extracranial There is intimal thickening but no significant atherosclerotic plaque noted in the left common carotid artery. There is heterogeneous, irregular atherosclerotic plaque noted in the left internal carotid artery. The left internal carotid artery is very tortuous. There is homogeneous, irregular atherosclerotic plaque noted in the left external carotid artery. Antegrade flow is noted in the left vertebral artery. Procedure Carotid Duplex [id number]. This is a Carotid Duplex examination using B-mode, color flow and specral Doppler. Exam performed in department. VL/Carotid Duplex Ultrasound Interpretation Summary Mild (<50%) stenosis right extracranial internal carotid. Mild (<50%) stenosis left extracranial internal carotid. Patent and antegrade vertebrals bilaterally. Ordering Physician: Heri Williamson Referring Physician: Krystyna Sanchez Performed By: Kelton Benavidez RVT and Student
== END | disposition home or self-care (01) ==
LOC: CVS 07:49
PROVIDERS: PCP Internal Medicine; Referring Provider Surgery; Visit Provider Surgery
DX: I65.22 Occlusion and stenosis of left carotid artery (principal); Z95.828 Presence of other vascular implants and grafts
CPT/HCPCS: 93880; 93978

== ENCOUNTER → 2024-06-06 | Outpatient (CLI) | payer MEDICARE, OTHER, SELFPAY ==
[2024-02-28 10:04] VITALS: BMI 24.3
--- NOTE | 2024-06-06 13:16 | CT_ITS ---
PROCEDURE: CHEST WITHOUT CONTRAST REASON FOR EXAM: COPD, asthma, prostate cancer. TECHNIQUE: Chest CT without contrast. COMPARISON: None. FINDINGS: Hardware: None. Lymph nodes: No mediastinal hilar or axillary lymphadenopathy. Heart and Vasculature: Normal size. Coronary artery calcifications. Coronary artery stenting. [id number] thoracic aortic atherosclerosis. Coronary Artery Calcifications: Lungs and Airways: Severe centrilobular emphysema. Right upper lobe 7 mm pulmonary nodule with mild spiculation (axial image 22 of 136). Pleura: No pleural effusion. No pneumothorax. Upper Abdomen: Partially visualized abdominal aortic stent. Partially visualized left kidney cyst. Right kidney upper pole cyst. Bones: Bone windows are unremarkable. CT/Chest without Contrast IMPRESSION: Right upper lobe 7 mm pulmonary nodule with mild spiculation. Consider PET-CT. Severe centrilobular emphysema. One or more dose reduction techniques were used (e.g., Automated exposure contr ol, adjustment of the mA and/or kV according to patient size, use of iterative reconstruction technique). Reading Location: [id number]
== END | disposition home or self-care (01) ==
LOC: CT 13:16
PROVIDERS: PCP Nurse Practitioner Family; Referring Provider Nurse Practitioner Family; Visit Provider Nurse Practitioner Family
DX: R91.8 Other nonspecific abnormal finding of lung field (principal)
CPT/HCPCS: 71250

== ENCOUNTER 2024-07-18 11:49 | Day surgery (SDC) | payer MEDICARE, OTHER, SELFPAY ==
[2024-02-28 10:04] VITALS: BMI 24.3
--- NOTE | 2024-07-17 14:33 | PAT.ANE_ITS ---
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 When Was Last Pacemaker Check QUESTION #4 FULL TEXT: You/Your Family Experience fever (hyperthermia) with Anesthesia Last Oral Intake Last Oral intake: Last Oral Intake NPO since Meds taken in AM with sips of water? Meds patient instructed to take am of surgery PONV PONV - furniture installer: PONV - furniture installer Female No 07/17/24 13:20 HX of Motion Sickness Yes 07/17/24 13:20 HX of N/V After Surgery No 07/17/24 13:20 Non-Smoker Yes 07/17/24 13:20 Duration of Surgery greater No 07/17/24 13:20 than 60 minutes Number of Risk Factors 2 07/17/24 13:20 PONV Score Moderate Risk 07/17/24 13:20 Height & Weight Height & Weight: Anesthesia: Height & Weight Height 5 ft 7 in 06/14/24 08:22 Respiratory Assessment Respiratory Assessment - furniture installer: Respiratory Tract Infection Hx - furniture installer Hx Respiratory Tract Infection No 07/17/24 13:20 STOP Sleep Apnea STOP Sleep Apnea - furniture installer: STOP Sleep Apnea - furniture installer Hx Hypertension Yes 07/17/24 13:20 Hx Sleep Apnea Yes: 3L O2 AT NIGHT 07/17/24 13:20 CPAP No 07/17/24 13:20 BIPAP No 07/17/24 13:20 Do you snore loudly (louder than talking or can be heard Do you often feel tired/ fatigued/ sleepy during daytime? Has anyone observed you stop breathing during sleep? STOP Results Positive 07/17/24 13:20 QUESTION #5 FULL TEXT : Do you snore loudly (louder than talking or can be heard through closed doors)? 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 Specify any problems Hx of Preganancy in last 3 N/A 07/17/24 13:20 Months Nurse Filling Out Transfusion NBUCHER 07/17/24 13:20 & Questions: Date: 07/17/24 07/17/24 13:20 Time: 07/17/24 13:20 Patient unable to answer at this time (ie. confused, unrespo /Reproduction History /Reproductive History - furniture installer: /Reproductive Hx- furniture installer Hx Now No 07/17/24 13:20 Gestational Age (in weeks): EDC: Hx Hx Para Hx Section SAB No 07/17/24 13:20 PFSH Medical History (Updated 07/17/24 @ 13:30 by Blanca Adrian) Marijuana use Prostate disease Shortness of breath on exertion Preoperative evaluation to rule out surgical contraindication Asthmatic bronchitis with exacerbation Nocturia Malignant neoplasm of colon, unspecified Heart disease Emphysema, unspecified Anxiety Frequency of micturition Chronic kidney disease, stage 3b Trigger finger Prostate CA Partial bowel obstruction Complete small bowel obstruction Elevated PSA Therapeutic drug monitoring Wears glasses Arthritis Easy bruising Excessive bleeding Back pain On home oxygen therapy Asthma Anemia Cancer Alcohol abuse Kidney stones Former smoker AAA (abdominal aortic aneurysm) Myocardial infarct Coronary artery disease Low back pain Epistaxis Sinus bradycardia Left inguinal hernia Essential (primary) hypertension Hyperlipidemia Atherosclerotic heart disease of [place] coronary artery without 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) History of ST elevation myocardial infarction (STEMI) (05/27/07) Insomnia Iron deficiency Abdominal aortic aneurysm (AAA) greater than 5.5 cm in diameter in male Hypoxia Bronchiectasis Allergy to dog dander Short bowel syndrome BPH (benign prostatic hyperplasia) Personal history of other malignant neoplasm of rectum, rectosigmoid junction, a nd anus Tachycardia 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 classification History of colon cancer COPD (chronic obstructive pulmonary disease) Home Medications ?Medication ?Instructions ?Recorded ?Last Taken ?Type albuterol sulfate 90 mcg/actuation 2 puff inhalation Q 4H PRN 07/02/21 Unknown Rx aerosol inhaler (Ventolin HFA) shortness of breath or wheezing #18 grams nitroglycerin 0.4 mg sublingual 0.4 mg sublingual Q5M PRN 11/16/22 Unknown Rx tablet Cardiac/Chest Pain #20 tabs Disability Placard #1 ea 02/11/23 Unknown Rx formoterol fumarate 20 mcg/2 mL 2 ml inhalation Q12H c opd #120 mL 05/06/23 Unknown Rx solution for nebulization (Perforomist) ipratropium 20 mcg-albuterol 100 1 puff inhalation Q6H #4 grams 12/08/23 Unknown Rx mcg/actuation mist for inhalation (Combivent Respimat) isosorbide mononitrate 30 mg 30 mg PO DAILY #30 TABLET S 12/10/23 Unknown Rx tablet,extended release 24 hr furosemide 40 mg tablet 40 mg PO DAILY PRN edema #30 tabs 12/13/23 Unknown Rx clopidogrel 75 mg tablet 75 mg PO DAILY #90 tabs 01/31 Unknown Rx verapamil 240 mg tablet,extended 240 mg PO QHS heart # 90 tabs 05/05/24 Unknown Rx release tamsulosin 0.4 mg capsule 0.4 mg PO BID prostate #180 caps 05/22/24 Unknown Rx budesonide 0.5 mg/2 mL suspension 0.5 mg (2 mL) inhala tion Q12H #180 06/14/24 Unknown Rx for nebulization mL Allergy/AdvReac Type Severity Reaction Status Date / Time aspirin Allergy Shortness Verified 07/17/24 13:15 of breath adhesive AdvReac Rash Verified 07/17/24 13:15 amoxicillin trihydrate (From AdvReac Other Verified 07/17/24 13:15 Augmentin) atorvastatin calcium (From AdvReac leg cramps Verified 07/17/24 13:15 Lipitor) isopropyl alcohol AdvReac Rash Verified 07/17/24 13:15 metoprolol succinate (From AdvReac Rash Verified 07/17/24 13:15 Toprol XL) naproxen (From Naprosyn) AdvReac Shortness Verified 07/17/24 13:15 of breath paroxetine HCl (From Paxil) AdvReac Unknown Verified 07/17/24 13:15 potassium clavulanate (From AdvReac tingling Verified 07/17/24 13:15 Augmentin) all over propoxyphene HCl (From AdvReac Unknown Verified 07/17/24 13:15 Darvon) sertraline HCl (From Zoloft) AdvReac Unknown Verified 07/17/24 13:15 simvastatin (From Zocor) AdvReac Unknown Verified 07/17/24 13:15 tiotropium bromide (From AdvReac Other Verified 07/17/24 13:15 Spiriva with HandiHaler) Family History Father Heart disease Hypertension High cholesterol CVA (cerebral vascular accident) Mother Dementia Surgical History (Updated 07/17/24 @ 13:30 by Blanca Adrian) H/O hernia repair History of left inguinal hernia repair (06/2021) Hx of thumb surgery History of esophagogastroduodenoscopy (EGD) Hx of colonoscopy Hx of sinus surgery History of endovascular stent graft for abdominal aortic aneurysm (AAA) (06/25/20) History of left heart catheterization (05/24/20) History of coronary artery stent placement (11/27/22) Hx of umbilical hernia repair Hx of appendectomy History of tonsillectomy and adenoidectomy Hx of bilateral cataract extraction Status post laparoscopic colectomy history of right eye surgery History of right inguinal hernia repair History of tonsillectomy Social History Smoking Status: Former smoker pack-years: 67 second hand exposure: No alcohol intake: former details: Previous nightly drinker. Stopped 2021 substance use type: marijuana caffeine: Yes Type: coffee Number of servings: 4 what type of physical activity do you participate in: other details: pulmonary rehab frequency: 3-4 times per week additional social history: Has had blood transfusion Audit: Pertinent Findings Pertinent Findings EKG Perinent findings: April 30, 2024. Normal sinus rhythm. Left axis deviation. Incomplete right bundle branch block. Septal infarct, age undetermined. Stress test pertinent findings: May 22, 2020. Ejection fraction 55%. Previous inferior infarct. Mid inferior and inferior apical ischemia present. Echo (EF%) pertinent findings: November 14, 2022. Ejection fraction is 45%. Right ventricular systolic pressure is 37 mmHg. No aortic stenosis is noted. Heart catheterization pertinent findings: November 27, 2022. Left ventricular ejection fraction is equal to 45%. Severe [place] vessel disease with new stenosis noted in the proximal left anterior descending artery and patent stents noted in the mid LAD and circumflex artery. Referred for immediate PCI. November 27, 2022. Intervention includes JIM to the proximal LAD Consult pertinent findings: August 03, 2023. Arturo ROSS. 1. Atherosclerotic heart disease of [place] coronary arteries without angina pectoris. Patient has a history of coronary artery disease with recent stent pl acement to his proximal LAD. He appears stable at this time. Continue Plavix and isosorbide. 2. Heart failure with reduced ejection fraction-most recent echo from November 14, 2022 demonstrated ejection fraction 45%. Stable at this time. 3. Hypertension well-controlled at this time. 4. Status post endovascular stent graft for abdominal aortic aneurysm-stable on last CT. Additional pertinent findings: Carotid duplex. May 04, 2024. Mild (less than 50%) stenosis of the right extracranial internal carotid. Mild ((less than 50% less) stenosis of the left extracranial internal carotid. Patent and antegrade vertebrals bilaterally. Recommendation Anesthesia Recommendation Anesthesia recommendation: OPTIMIZED for anesthesia
[2024-07-18] VITALS (9 sets, daily range): BP systolic 99–157; BP diastolic 56–84; PULSE 15–90; RESP 14–18; TEMP 36.3–37.2; O2SAT 95–98; BMI 21.1
--- NOTE | 2024-07-18 12:36 | PCM.PRE.AN2 ---
ASA Classification* ASA Classification ASA Classification: 3 (Patient is a COPD-er, given duonebs in preop. He has an EXTENSIVE cardiac history. Please keep BP within 20% of his starting. ) Assessment & Plan Anesthesia* Anesthesia Assessment Anesthesia Assessment: Discussed sedation and/or anesthesia options, risks, benefits, and alternatives with patient/parents/legal guardian/POA. Questions invited. The patient/parents/legal guardian/POA seems to understand and agrees to proceed with anesthesia plan. Reviewed the physical assessment, medical history, allergy history and patient home medications list prior to surgery/procedure/anesthetic and documented any changes. Performed airway and anesthesia risk assessments. Anesthesia Type Anesthesia Type: General History Source History Obtained from:: Patient and Chart Anesthesia Focused Assessment* Temperature: 97.8 F Pulse Rate: 90 Blood Pressure: 154/84 Respiratory Rate: 16 Pulse Ox: 96 Oxygen Delivery Method: Nasal Cannula Oxygen Flow Rate (L/min): 3 Airway Assessment Mouth opens: >3 cm Mallampati Score: II Teeth Condition: Chipped/Broken (poor dentition) and Missing (many missing) Focused Labs Anesthesia Preop lab: CBC WBC 10.2 K/mm3 (4.4-11.0) 04/30/24 10:54 04/30/24 RBC 3.68 M/mm3 (4.6-6.2) L 04/30/24 10:54 04/30/24 Hgb 12.7 g/dL (13.0-16.5) L 04/30/24 10:54 04/30/24 Hct 37.8 % (40-54) L 04/30/24 10:54 04/30/24 Plt Count 335 K/mm3 (150-450) 04/30/24 10:54 04/30/24 CHEMISTRY Potassium 3.5 mmol/L (3.5-5.1) 04/30/24 10:54 04/30/24 Sodium 141 mmol/L (136-145) 04/30/24 10:54 04/30/24 Magnesium 2.2 mg/dL (1.6-2.6) 11/14/22 04:10 11/14/22 Phosphorus 3.1 mg/dL (2.5-4.9) 11/16/22 03:00 11/16/22 BUN 20 mg/dL (7-18) H 04/30/24 10:54 04/30/24 Creatinine 1.42 mg/dL (0.70-1.30) H 04/30/24 10:54 04/30/24 Glucose 114 mg/dL (74-106) H 04/30/24 10:54 04/30/24 TSH 1.37 uIU/mL (0.358-3.74) 01/31/20 15:05 01/31/20 COAG PT 13.1 SECONDS (11.7-14.9) 11/14/22 02:10 11/14/22 Pre-Assessment Diagnosis/Proposed Procedure Planned Operative Procedure(s): CSCOPE Anesthesia History 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 When Was Last Pacemaker Check QUESTION #4 FULL TEXT: You/Your Family Experience fever (hyperthermia) with Anesthesia Last Oral Intake Last Oral intake: Last Oral Intake NPO since :07/18/24 12:21 Meds taken in AM with sips of No 07/18/24 12:21 water? Meds patient instructed to take am of surgery PONV PONV - fabrication welder: PONV - fabrication welder Female No 07/17/24 13:20 HX of Motion Sickness Yes 07/17/24 13:20 HX of N/V After Surgery No 07/17/24 13:20 Non-Smoker Yes 07/17/24 13:20 Duration of Surgery greater No 07/17/24 13:20 than 60 minutes Number of Risk Factors 2 07/17/24 13:20 PONV Score Moderate Risk 07/17/24 13:20 Height & Weight Height & Weight: Anesthesia: Height & Weight Height 5 ft 7 in 07/18/24 12:21 Weight: 61.1 kg 07/18/24 12:21 Body Mass Index (BMI) 21.1 07/18/24 12:21 Respiratory Assessment Respiratory Assessment - fabrication welder: Respiratory Tract Infection Hx - fabrication welder Hx Respiratory Tract Infection No 07/17/24 13:20 STOP Sleep Apnea STOP Sleep Apnea - fabrication welder: STOP Sleep Apnea - fabrication welder Hx Hypertension Yes 07/17/24 13:20 Hx Sleep Apnea Yes: 3L O2 AT NIGHT 07/17/24 13:20 CPAP No 07/17/24 13:20 BIPAP No 07/17/24 13:20 Do you snore loudly (louder than talking or can be heard Do you often feel tired/ fatigued/ sleepy during daytime? Has anyone observed you stop breathing during sleep? STOP Results Positive 07/17/24 13:20 QUESTION #5 FULL TEXT : Do you snore loudly (louder than talking or can be heard through closed doors)? 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 Specify any problems Hx of Preganancy in last 3 N/A 07/17/24 13:20 Months Nurse Filling Out Transfusion NBUCHER 07/17/24 13:20 & Questions: Date: 07/17/24 07/17/24 13:20 Time: :25 07/17/24 13:20 Patient unable to answer at this time (ie. confused, unrespo /Reproduction History /Reproductive History - fabrication welder: /Reproductive Hx- fabrication welder Hx Now No 07/17/24 13:20 Gestational Age (in weeks): EDC: Hx Hx Para Hx Section SAB No 07/17/24 13:20 [facility] Medical History (Updated 07/17/24 @ 13:30 by Blanca Adrian) Marijuana use Prostate disease Shortness of breath on exertion Preoperative evaluation to rule out surgical contraindication Asthmatic bronchitis with exacerbation Nocturia Malignant neoplasm of colon, unspecified Heart disease Emphysema, unspecified Anxiety Frequency of micturition Chronic kidney disease, stage 3b Trigger finger Prostate CA Partial bowel obstruction Complete small bowel obstruction Elevated PSA Therapeutic drug monitoring Wears glasses Arthritis Easy bruising Excessive bleeding Back pain On home oxygen therapy Asthma Anemia Cancer Alcohol abuse Kidney stones Former smoker AAA (abdominal aortic aneurysm) Myocardial infarct Coronary artery disease Low back pain Epistaxis Sinus bradycardia Left inguinal hernia Essential (primary) hypertension Hyperlipidemia Atherosclerotic heart disease of [place] coronary artery without 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) History of ST elevation myocardial infarction (STEMI) (05/27/07) Insomnia Iron deficiency Abdominal aortic aneurysm (AAA) greater than 5.5 cm in diameter in male Hypoxia Bronchiectasis Allergy to dog dander Short bowel syndrome BPH (benign prostatic hyperplasia) Personal history of other malignant neoplasm of rectum, rectosigmoid junction, and anus Tachycardia 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 classification History of colon cancer COPD (chronic obstructive pulmonary disease) Home Medications ?Medication ?Instructions ?Recorded ?Last Taken ?Type albuterol sulfate 90 mcg/actuation 2 puff inhalation Q4H PRN 07/02/21 Unknown Rx aerosol inhaler (Ventolin HFA) shortness of breath or wheezing #18 grams nitroglycerin 0.4 mg sublingual 0.4 mg sublingual Q5M PRN 11/16/22 Unknown Rx tablet Cardiac/Chest Pain #20 tabs Disability Placard #1 ea 02/11/23 Unknown Rx formoterol fumarate 20 mcg/2 mL 2 ml inhalation Q12H copd #120 mL 05/06/23 Unknown Rx solution for nebulization (Perforomist) ipratropium 20 mcg-albuterol 100 1 puff inhalation Q6H #4 grams 12/08/23 Unknown Rx mcg/actuation mist for inhalation (Combivent Respimat) isosorbide mononitrate 30 mg 30 mg PO DAILY #30 TABLETS 12/10/23 Unknown Rx tablet,extended release 24 hr furosemide 40 mg tablet 40 mg PO DAILY PRN edema #30 tabs 12/13/23 Unknown Rx clopidogrel 75 mg tablet 75 mg PO DAILY #90 tabs 02/10/24 07/12/24 Rx verapamil 240 mg tablet,extended 240 mg PO QHS heart #90 tabs 05/05/24 Unknown Rx release tamsulosin 0.4 mg capsule 0.4 mg PO BID prostate #180 caps 05/22/24 Unknown Rx budesonide 0.5 mg/2 mL suspension 0.5 mg (2 mL) inhalation Q12H #180 06/14/24 Unknown Rx for nebulization mL Allergy/AdvReac Type Severity Reaction Status Date / Time aspirin Allergy Shortness Verified 07/18/24 12:19 of breath adhesive AdvReac Rash Verified 07/18/24 12:19 amoxicillin trihydrate (From AdvReac Other Verified 07/18/24 12:19 Augmentin) atorvastatin calcium (From AdvReac leg cramps Verified 07/18/24 12:19 Lipitor) isopropyl alcohol AdvReac Rash Verified 07/18/24 12:19 metoprolol succinate (From AdvReac Rash Verified 07/18/24 12:19 Toprol XL) naproxen (From Naprosyn) AdvReac Shortness Verified 07/18/24 12:19 of breath paroxetine HCl (From Paxil) AdvReac Unknown Verified 07/18/24 12:19 potassium clavulanate (From AdvReac tingling Verified 07/18/24 12:19 Augmentin) all over propoxyphene HCl (From AdvReac Unknown Verified 07/18/24 12:19 Darvon) sertraline HCl (From Zoloft) AdvReac Unknown Verified 07/18/24 12:19 simvastatin (From Zocor) AdvReac Unknown Verified 07/18/24 12:19 tiotropium bromide (From AdvReac Other Verified 07/18/24 12:19 Spiriva with HandiHaler) Family History Father Heart disease Hypertension High cholesterol CVA (cerebral vascular accident) Mother Dementia Surgical History (Updated 07/17/24 @ 13:30 by Blanca Adrian) H/O hernia repair History of left inguinal hernia repair (06/2021) Hx of thumb surgery History of esophagogastroduodenoscopy (EGD) Hx of colonoscopy Hx of sinus surgery History of endovascular stent graft for abdominal aortic aneurysm (AAA) (06/25/20) History of left heart catheterization (05/24/20) History of coronary artery stent placement (11/27/22) Hx of umbilical hernia repair Hx of appendectomy History of tonsillectomy and adenoidectomy Hx of bilateral cataract extraction Status post laparoscopic colectomy history of right eye surgery History of right inguinal hernia repair History of tonsillectomy Social History Smoking Status: Former smoker pack-years: 67 second hand exposure: No alcohol intake: former details: Previous nightly drinker. Stopped 2021 substance use type: marijuana caffeine: Yes Type: coffee Number of servings: 4 what type of physical activity do you participate in: other details: pulmonary rehab frequency: 3-4 times per week additional social history: Has had blood transfusion Review of Systems (Anesthesia) ROS Narrative System reviewed and no additional complaints, except as documented. Physical Exam Const alert, oriented x3 and average body habitus Resp normal respiratory effort and normal air movement Effort and Inspection: labored and actively coughing Auscultation: wheezes Cardio regular rate, regular rhythm, no murmurs and diaphoretic
[2024-07-18] MEDS: Ipratropium/Albuterol Sulfate 3 ML AMPUL.NEB INHALATION (12:48)
--- NOTE | 2024-07-18 13:00 | COLBX_PTH ---
PATIENT: BETTE ASTORGA LOC: [facility] U#:[id number] AGE/SX: 79/M ROOM: RE07/18/[address]: Dr. Faraz Gonzáles DO : 1945 BED: DIS: 07/18/2024 SPEC #: [id number] RECD: 07/19/24 09:24 STATUS: LAUREN MINERVA #: [id number] SOLO: 07/18/24 13:[address]: Faraz Gonzáles DEPT: SURGICAL PATHOLOGY RECD BY: Prem Romero ENTERED: 07/19/24 09:24 SP TYPE: COLON BX AMINATA DR: Jeremiah Mckeon, TELLER VAULT-C Tissues: A - COLON BIOPSY B - COLON BIOPSY Procedures: Surgery Specimen Level IV HEADER OPERATION: Colonoscopy with biopsies PRE-OP DIAGNOSIS: Rectal bleeding, personal history of other malignant neoplasm of large intestine, abdominal pain TISSUE SUBMITTED: A- Hepatic flexure polyp biopsy, B- Sigmoid polyp biopsy MICROSCOPIC DIAGNOSIS A. Hepatic flexure polyp, biopsy:Tubular adenomaB. Sigmoid polyp, biopsy:Tubular adenomaMarianna Coulter MD, 07/24/2024 MICROSCOPIC DESCRIPTION Slides are reviewed. GROSS DESCRIPTION A. Received in fixative is one container labeled with the patient's name and designated Hepatic flexure polyp biopsy. The specimen consists of multiple irregular fragments of light padilla soft tissue that in aggregate measure 1.1 x 0.5 x 0.2 cm. The specimen is totally submitted in one cassette. B. Received in fixative is one container labeled with the patient's name and designated Sigmoid polyp biopsy. The specimen consists of one irregular fragment of light padilla soft tissue that measures 0.5 x 0.2 x 0.1 cm. The specimen is totally submitted in one cassette. MS/mr 07/19/2024 CPT:24286r2, TC:1
--- NOTE | 2024-07-18 14:23 | HP.PCM_ITS ---
HPI - General General Date of Admission: 07/18/24 Date of Service: 07/18/24 Chief Complaint: lower GI bleeding HPI Narrative 78y/o male presents for evaluation and treatment of lower GI bleeding. His PMH is significant for CAD, MIx2, cardiac stent x9 on plavix, moderate COPD with bronchiectasis complicated by chronic hypoxic respiratory failure, CKD3b, prostate CA, colon CA (2007). He complaints of BRBPR with BM for the past 6-8 weeks. He is also experiencing intermittent generalized abdominal pain and a 15lb weight loss in the past six months. He does have supplemental oxygen and uses as needed. He routinely uses 3 L/min with sleep. - 9 cardiac stents - on plavix - CAD, MIx2 - denies any h/o CVA - prep-H has helped slow down the rectal bleeding - the bleeding has been ongoing for the past 6-8 weeks - bleeding at times can be minimal and other times can be quite a bit - bleeding is only with a BM - he is straining to have a BM - he does experience intermittent generalized abdominal pain - denies any rectal pain - reports he had colon resection in 2007 for colon CA - with dietary modifications diarrhea resolved in the past 6 months - reports he had diarrhea from 2007 until recently - he is now exercising and weight lifting - has noticed some increase in SOB reports he almost cancelled appt today because of SOB - states he is planning on following up with pulmonology - c/o fatigue - reports he has dizziness only with bending over - reports this is not new - denies any palpitations - O2 primarily at HS only - his last colonoscopy was with Dr. Cardona - cannot remember when this was - weight loss 15lbs in the past 6 months - lives alone - now in assisted living - currently on hormone injections for prostate CA [facility]VIX [facility] Medical History Marijuana use Prostate disease Shortness of breath on exertion Preoperative evaluation to rule out surgical contraindication Asthmatic bronchitis with exacerbation Nocturia Malignant neoplasm of colon, unspecified Heart disease Emphysema, unspecified Anxiety Frequency of micturition Chronic kidney disease, stage 3b Trigger finger Prostate CA Partial bowel obstruction Complete small bowel obstruction Elevated PSA Therapeutic drug monitoring Wears glasses Arthritis Easy bruising Excessive bleeding Back pain On home oxygen therapy Asthma Anemia Cancer Alcohol abuse Kidney stones Former smoker AAA (abdominal aortic aneurysm) Myocardial infarct Coronary artery disease Low back pain Epistaxis Sinus bradycardia Left inguinal hernia Essential (primary) hypertension Hyperlipidemia Atherosclerotic heart disease of [place] coronary artery without 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) History of ST elevation myocardial infarction (STEMI) (05/27/07) Insomnia Iron deficiency Abdominal aortic aneurysm (AAA) greater than 5.5 cm in diameter in male Hypoxia Bronchiectasis Allergy to dog dander Short bowel syndrome BPH (benign prostatic hyperplasia) Personal history of other malignant neoplasm of rectum, rectosigmoid junction, and anus Tachycardia 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 classification History of colon cancer COPD (chronic obstructive pulmonary disease) Home Medications ?Medication ?Instructions ?Recorded ?Last Taken ?Type albuterol sulfate 90 mcg/actuation 2 puff inhalation Q 4H PRN 07/02/21 Unknown Rx aerosol inhaler (Ventolin HFA) shortness of breath or wheezing #18 grams nitroglycerin 0.4 mg sublingual 0.4 mg sublingual Q5M PRN 11/16/22 Unknown Rx tablet Cardiac/Chest Pain #20 tabs Disability Placard #1 ea 02/11/23 Unknown Rx formoterol fumarate 20 mcg/2 mL 2 ml inhalation Q12H c opd #120 mL 05/06/23 Unknown Rx solution for nebulization (Perforomist) ipratropium 20 mcg-albuterol 100 1 puff inhalation Q6H #4 grams 12/08/23 Unknown Rx mcg/actuation mist for inhalation (Combivent Respimat) isosorbide mononitrate 30 mg 30 mg PO DAILY #30 TABLET S 12/10/23 Unknown Rx tablet,extended release 24 hr furosemide 40 mg tablet 40 mg PO DAILY PRN edema #30 tabs 12/13/23 Unknown Rx clopidogrel 75 mg tablet 75 mg PO DAILY #90 tabs 10 024 07/12/24 Rx verapamil 240 mg tablet,extended 240 mg PO QHS heart # 90 tabs 05/05/24 Unknown Rx release tamsulosin 0.4 mg capsule 0.4 mg PO BID prostate #180 caps 05/22/24 Unknown Rx budesonide 0.5 mg/2 mL suspension 0.5 mg (2 mL) inhala tion Q12H #180 06/14/24 Unknown Rx for nebulization mL Allergy/AdvReac Type Severity Reaction Status Date / Time aspirin Allergy Shortness Verified 07/18/24 12:19 of breath adhesive AdvReac Rash Verified 07/18/24 12:19 amoxicillin trihydrate (From AdvReac Other Verified 07/18/24 12:19 Augmentin) atorvastatin calcium (From AdvReac leg cramps Verified 07/18/24 12:19 Lipitor) isopropyl alcohol AdvReac Rash Verified 07/18/24 12:19 metoprolol succinate (From AdvReac Rash Verified 07/18/24 12:19 Toprol XL) naproxen (From Naprosyn) AdvReac Shortness Verified 07/18/24 12:19 of breath paroxetine HCl (From Paxil) AdvReac Unknown Verified 07/18/24 12:19 potassium clavulanate (From AdvReac tingling Verified 07/18/24 12:19 Augmentin) all over propoxyphene HCl (From AdvReac Unknown Verified 07/18/24 12:19 Darvon) sertraline HCl (From Zoloft) AdvReac Unknown Verified 07/18/24 12:19 simvastatin (From Zocor) AdvReac Unknown Verified 07/18/24 12:19 tiotropium bromide (From AdvReac Other Verified 07/18/24 12:19 Spiriva with HandiHaler) Family History Father Heart disease Hypertension High cholesterol CVA (cerebral vascular accident) Mother Dementia Surgical History H/O hernia repair History of left inguinal hernia repair (06/2021) Hx of thumb surgery History of esophagogastroduodenoscopy (EGD) Hx of colonoscopy Hx of sinus surgery History of endovascular stent graft for abdominal aortic aneurysm (AAA) (06/25/20) History of left heart catheterization (05/24/20) History of coronary artery stent placement (11/27/22) Hx of umbilical hernia repair Hx of appendectomy History of tonsillectomy and adenoidectomy Hx of bilateral cataract extraction Status post laparoscopic colectomy history of right eye surgery History of right inguinal hernia repair History of tonsillectomy Social History Smoking Status: Former smoker pack-years: 67 second hand exposure: No alcohol intake: former details: Previous nightly drinker. Stopped 2021 substance use type: marijuana caffeine: Yes Type: coffee Number of servings: 4 what type of physical activity do you participate in: other details: pulmonary rehab frequency: 3-4 times per week additional social history: Has had blood transfusion ROS Constitutional Constitutional: Denies fatigue, fever(s), poor appetite, weight gain or weight loss Gastrointestinal Gastrointestinal: Denies belching, bloating, change in bowel habits, change in stool character, chewing difficulty, coffee ground emesis, constipation, cramping, diarrhea, dyspepsia, dysphagia, early satiety, excessive flatus, fecal incontinence, heartburn, hematemesis, hematochezia, hemorrhoids, loose stools, melena, nausea, odynophagia, rectal bleeding, tenesmus, vomiting or weight changes Vital Signs Vital Signs Vital Signs: 07/18/24 12:21 07/18/24 12:21 07/18/24 12:38 Temperature 97.8 F 97.8 F Temperature Source Temporal Pulse Rate 90 90 Respiratory Rate 16 16 Respiratory Pattern Normal Blood Pressure 154/84 H 154/84 H Blood Pressure Mean 107 Blood Pressure Source Monitor Blood Pressure Position Sitting Blood Pressure Location Left Arm Pulse Ox 96 96 Oxygen Delivery Method Room Air Nasal Cannula Oxygen Flow Rate (L/min) 3 Weight Weight: 134 lb 11.239 oz Body Mass Index (BMI) 21.1 Physical Exam Const alert, oriented x3, no apparent distress and healthy appearing General Appearance: cooperative GI normal to inspection, nondistended, normoactive bowel sounds, soft to palpation, non-tender and non-distended Percussion: normal to percussion Rectal Exam: deferred Assessment & Plan Assessment/Plan (1) Personal history of other malignant neoplasm of large intestine: (2) Rectal bleeding: PLAN: Assessment and Plan Assessment and Plan (1) Rectal bleeding: Status: Acute (2) Personal history of other malignant neoplasm of large intestine: Status: Acute (3) Abdominal pain: Status: Acute Qualifiers: Abdominal location: generalized Qualified Code(s): R10.84 - Generalized abdominal pain Orders: Orders CBC W/Diff, Automated Today K62.5 - Hemorrhage of anus and rectum Colonoscopy Today Medications: New hydrocortisone 2.5% 1 applic [place] QD-BID PRN 30 grams 0RF rectal bleeding Plan 78y/o male presents for consultation with complaints of a bleeding hemorrhoid. His PMH is significant for CAD, MIx2, cardiac stent x9 on plavix, moderate COPD with bronchiectasis complicated by chronic hypoxic respiratory failure, CKD3b, prostate CA, colon CA (2007). He complaints of BRBPR with BM for the past 6-8 weeks. He is also experiencing intermittent generalized abdominal pain and a 15lb weight loss in the past six months. He does endorse worsening SOB and fatigue; denies any palpitations. I have ordered a CBC to be completed today and scheduled colonoscopy, pending cardiac and pulmonary clearance. If unable to obtain clearance will proceed with unsedated Sigmoidoscopy. 1. CBC today 2. Colonoscopy if cleared from a cardiac and pulmonary standpoint 3. Obtain clearance to hold Plavix 4. If unable to proceed safely with colonoscopy - will change to unsedated Sigmoidoscopy
--- NOTE | 2024-07-18 14:59 | PCM.POST.ANE ---
Anesthesia: Postop Eval I Current Vital Signs Temperature: 97.4 F Pulse Rate: 15 Blood Pressure: 124/74 Respiratory Rate: 14 Pulse Ox: 98 Oxygen Delivery Method: Room Air Assessment Airway patent: Yes Spontaneous unlabored respirations: Yes Mental status: Awake nausea: No Vomiting: No Anesthesia Complication: No Fluid Hydration Crystalloid volume administer (ml): 10 Total IV fluid infused: 10 Progress Note Anesthesia document: Postop Eval 1 completed: Yes
--- NOTE | 2024-07-18 15:00 | OP.CCLET_ITS ---
07/18/2024 Jeremiah Mckeon [facility], Senior Web Designer-c Re : Colonoscopy procedure for Andrey Clements Dear Mike This procedure was performed on Thursday, July 18, 2024. My impressions and recommendations are as follows: Impressions : - Two 7 mm polyps in the sigmoid colon and at the hepatic flexure, removed with a cold biopsy forceps. Resected and retrieved. - Diverticulosis in the recto-sigmoid colon, in the sigmoid colon, in the descending colon, at the splenic flexure and in the transverse colon. - Patent end-to-end colo-colonic anastomosis. - Multiple non-bleeding colonic angiodysplastic lesions. Recommendations : - Discharge patient to home. - Resume previous diet. - Continue present medications. - Await pathology results. - Repeat colonoscopy. My findings are described in the full procedure note, which is enclosed. If I can be of further assistance, please feel free to contact me at . Sincerely, Faraz Gonzáles, 07/18/2024 2:59:42 PM This report has been signed electronically.
--- NOTE | 2024-07-18 15:00 | OP.COLON_ITS ---
Patient Name: Andrey Clements Procedure Date: 07/18/2024 2:15 PM Date of : 1945 Age: 79 Procedure: Colonoscopy Indications: Hematochezia Providers: Faraz Gonzáles DO Referring MD: Jeremiah Mckeon [facility], Learning Disabled Teacher-c Medicines: Monitored Anesthesia Care Patient Profile: This is an 79 year old male. Refer to note in patient chart for documentation of history and physical. Last Colonoscopy: 10 years ago. Complications: No immediate complications. Procedure: Pre-Anesthesia Assessment: - Prior to the procedure, a History and Physical was performed, and patient medications and allergies were reviewed. The patient is competent. The risks and benefits of the procedure and the sedation options and risks were discussed with the patient. All questions were answered and informed consent was obtained. Patient identification and proposed procedure were verified by the physician in the pre-procedure area. Mental Status Examination: alert and oriented. Airway Examination: normal oropharyngeal airway and neck mobility. Respiratory Examination: clear to auscultation. CV Examination: normal. Prophylactic Antibiotics: The patient does not require prophylactic antibiotics. Prior Anticoagulants: The patient has taken no anticoagulant or antiplatelet agents. ASA Grade Assessment: II - A patient with mild systemic disease. After reviewing the risks and benefits, the patient was deemed in satisfactory condition to undergo the procedure. The anesthesia plan was to use monitored anesthesia care (MAC). Immediately prior to administration of medications, the patient was re-assessed for adequacy to receive sedatives. The heart rate, respiratory rate, oxygen saturations, blood pressure, adequacy of pulmonary ventilation, and response to care were monitored throughout the procedure. The physical status of the patient was re-assessed after the procedure. After I obtained informed consent, the scope was passed under direct vision. Throughout the procedure, the patient's blood pressure, pulse, and oxygen saturations were monitored continuously. The colonoscope was introduced through the anus and advanced to the cecum, identified by appendiceal orifice and ileocecal valve. The colonoscopy was performed without difficulty. The patient tolerated the procedure well. The quality of the bowel preparation was adequate. The ileocecal valve, appendiceal orifice, and rectum were photographed. Scope In: 2:43:06 PM Scope Withdrawal Time 0 hours 6 minutes 52 seconds Scope Out: 2:52:25 PM Total Procedure Duration Time 0 hours 9 minutes 19 seconds Findings: The perianal and digital rectal examinations were normal. Two sessile polyps were found in the sigmoid colon and hepatic flexure. The polyps were 7 mm in size. These polyps were removed with a cold biopsy forceps. Resection and retrieval were complete. Verification of patient identification for the specimen was done. Estimated blood loss was minimal. Multiple small and large-mouthed diverticula were found in the recto-sigmoid colon, sigmoid colon, descending colon, splenic flexure and transverse colon. There was evidence of a prior end-to-end colo-colonic anastomosis in the sigmoid colon. This was patent. Multiple large localized angiodysplastic lesions without bleeding were found in the rectum. Impression: - Two 7 mm polyps in the sigmoid colon and at the hepatic flexure, removed with a cold biopsy forceps. Resected and retrieved. - Diverticulosis in the recto-sigmoid colon, in the sigmoid colon, in the descending colon, at the splenic flexure and in the transverse colon. - Patent end-to-end colo-colonic anastomosis. - Multiple non-bleeding colonic angiodysplastic lesions. Recommendation: - Discharge patient to home. - Resume previous diet. - Continue present medications. - Await pathology results. - Repeat colonoscopy. Procedure Code(s): --- Professional --- 59903, Colonoscopy, flexible; with biopsy, single or multiple CPT copyright 2021 [employer]. All rights reserved. The codes documented in this report are preliminary and upon concrete mixer review may be revised to meet current compliance requirements. Faraz Gonzáles DO 07/18/2024 2:59:42 PM This report has been signed electronically. Number of Addenda: 0 Note Initiated On: 07/18/2024 2:15 PM
--- NOTE | 2024-07-18 15:23 | POSTOPAN2_ITS ---
Anesthesia Postop Eval I Sum Postop Eval Completion status Anesthesia document: Postop Eval 1 completed: Yes Anesthesia Postop Eval I Summary Anesthesia Postop Eval I Summary: Anesthesia Postop Eval I: Assessment Summary Airway patent Yes 07/18/24 15:02 MEDICAL DONATION PROFESSIONAL.HBARR Spontaneous unlabored Yes 07/18/24 15:02 MEDICAL DONATION PROFESSIONAL.HBARR respirations Mental status Awake 07/18/24 15:02 MEDICAL DONATION PROFESSIONAL.HBARR nausea No 07/18/24 15:02 MEDICAL DONATION PROFESSIONAL.HBARR Vomiting No 07/18/24 15:02 MEDICAL DONATION PROFESSIONAL.HBARR Anesthesia Postop Eval I: Fluid Summary Crystalloid volume administer 10 07/18/24 15:02 MEDICAL DONATION PROFESSIONAL.HBARR (ml) Colloids volume administered ( ml) Blood Product volume administered (ml) Total IV fluid infused 10 07/18/24 15:02 MEDICAL DONATION PROFESSIONAL.HBARR Anesthesia Postop Eval I: Summary Notes Anesthesia Complication No 07/18/24 15:02 MEDICAL DONATION PROFESSIONAL.HBARR Anesthesia Complication Comment: Post-operative progress note Anesthesia: Postop Eval II Evaluation Mental status: Awake Pain Level: 0 nausea: No Vomiting: No Complications Anesthesia Complication: No
--- NOTE | 2024-07-18 15:23 | PCM.POSTANE2 ---
Anesthesia Postop Eval I Sum Postop Eval Completion status Anesthesia document: Postop Eval 1 completed: Yes Anesthesia Postop Eval I Summary Anesthesia Postop Eval I Summary: Anesthesia Postop Eval I: Assessment Summary Airway patent Yes 07/18/24 15:02 SALES ACCOUNT COORDINATOR.HBARR Spontaneous unlabored Yes 07/18/24 15:02 SALES ACCOUNT COORDINATOR.HBARR respirations Mental status Awake 07/18/24 15:02 SALES ACCOUNT COORDINATOR.HBARR nausea No 07/18/24 15:02 SALES ACCOUNT COORDINATOR.HBARR Vomiting No 07/18/24 15:02 SALES ACCOUNT COORDINATOR.HBARR Anesthesia Postop Eval I: Fluid Summary Crystalloid volume administer 10 07/18/24 15:02 SALES ACCOUNT COORDINATOR.HBARR (ml) Colloids volume administered ( ml) Blood Product volume administered (ml) Total IV fluid infused 10 07/18/24 15:02 SALES ACCOUNT COORDINATOR.HBARR Anesthesia Postop Eval I: Summary Notes Anesthesia Complication No 07/18/24 15:02 SALES ACCOUNT COORDINATOR.HBARR Anesthesia Complication Comment: Post-operative progress note Anesthesia: Postop Eval II Evaluation Mental status: Awake Pain Level: 0 nausea: No Vomiting: No Complications Anesthesia Complication: No
== END 2024-07-18 15:57 | disposition home or self-care (01) ==
LOC: EN 11:50 → AC 11:52
PROVIDERS: PCP Nurse Practitioner Family; Referring Provider Nurse Practitioner Family; Visit Provider Internal Medicine Gastroenterology
PROC: 0DJD8ZZ Inspection of Lower Intestinal Tract, Via Natural or Artificial Opening Endoscopic (ICD-10-PCS; CPT 45378; principal; 2024-07-18 12:55)
DX: K55.20 Angiodysplasia of colon without hemorrhage (principal); J96.11 Chronic respiratory failure with hypoxia; J44.9 Chronic obstructive pulmonary disease, unspecified; C61 Malignant neoplasm of prostate; N18.32 Chronic kidney disease, stage 3b; K63.5 Polyp of colon; K57.30 Diverticulosis of large intestine without perforation or abscess without bleeding; I25.10 Atherosclerotic heart disease of native coronary artery without angina pectoris; I12.9 Hypertensive chronic kidney disease with stage 1 through stage 4 chronic kidney disease, or unspecified chronic kidney disease; Z95.5 Presence of coronary angioplasty implant and graft; R10.84 Generalized abdominal pain; E78.5 Hyperlipidemia, unspecified; Z87.891 Personal history of nicotine dependence; K62.5 Hemorrhage of anus and rectum; R53.83 Other fatigue; I25.2 Old myocardial infarction; Z90.49 Acquired absence of other specified parts of digestive tract; F12.90 Cannabis use, unspecified, uncomplicated; Z85.038 Personal history of other malignant neoplasm of large intestine
CPT/HCPCS: 45380; 88305; 93005; A4216

== ENCOUNTER → 2024-07-26 | Outpatient (CLI) | payer MEDICARE, OTHER, SELFPAY ==
[2024-02-28 10:04] VITALS: BMI 24.3
[2024-07-26 12:48] LABS: Absolute Lymphocyte Count 1.15 X10^3/uL (0.83-4.51); Absolute Neutrophil Count 5.3 X10^3/uL (2.0-7.7); Basophil% 1.3 % (0-1); Eosinophil# 0.45 X10^3/uL; Hematocrit 40.6 % (40-54); Lymphocyte # 1.15 X10^3/ul (0.83-4.51); Lymphocyte % 15.3 % (19-41); Mean Corp Hgb Conc 34.5 g/dL (32-36); Mean Corpuscular Hgb 32.5 pg (27.0-32.0); Mean Corpuscular Volume 94.2 fL (80-94); Mean Platelet Vol. 10.5 fl (6.2-12.0); Monocyte# 0.48 X10^3/uL; Monocyte% 6.4 % (0-10); NRBC Flagged by Analyzer 0 % (0-5); Neutrophil # 5.32 X10^3/uL (2.7-7.7); Neutrophil % 70.6 % (47-70); Platelet Count 380 K/mm3 (150-450); RBC Distribution Width CV 12.2 % (11.6-14.6); RBC Distribution Width SD 42.5 fl (35.1-43.9); Red Blood Count 4.31 M/mm3 (4.6-6.2); White Blood Count 7.5 K/mm3 (4.4-11.0)
[2024-07-26 13:02] LABS: Anion Gap 16 (5-15); BUN 30 mg/dL (4-19); BUN/Creat Ratio 19.8 RATIO (10-20); Calcium,Total 9.8 mg/dL (7.6-11.0); Carbon Dioxide 25.6 mmol/L (21.0-32.0); Chloride 101 mmol/L (98-108); EST Glomerular Filtration Rate 47 (>60); Glucose 93 mg/dL (70-99); Potassium 3.3 mmol/L (3.3-5.1); Sodium Level 142 mmol/L (133-145)
== END | disposition home or self-care (01) ==
LOC: BIMLAB 10:56
PROVIDERS: Internal Medicine; PCP Nurse Practitioner Family; Referring Provider Nurse Practitioner Acute Care; Visit Provider Nurse Practitioner Acute Care
DX: E87.6 Hypokalemia (principal); D64.9 Anemia, unspecified
CPT/HCPCS: 36415; 80048; 85025

== ENCOUNTER 2024-07-27 09:41 | Observation (INO) | payer MEDICARE, OTHER, SELFPAY ==
[2024-02-28 10:04] VITALS: BMI 24.3
[2024-07-27] VITALS (9 sets, daily range): BP systolic 141–162; BP diastolic 69–92; PULSE 76–97; RESP 16–20; TEMP 36.3–37.3; O2SAT 92–98; BMI 22.5; BMI 20.8
[2024-07-27] MEDS: 0.9% Normal Saline (1000mL) 1,000 ML 999 ML IV (10:29)
[2024-07-27 10:41] LABS: Absolute Lymphocyte Count 1.02 X10^3/uL (0.83-4.51); Absolute Neutrophil Count 5.6 X10^3/uL (2.0-7.7); Basophil# 0.09 X10^3/uL; Basophil% 1.2 % (0-1); Eosinophil# 0.46 X10^3/uL; Hematocrit 38.4 % (40-54); Hemoglobin 13.5 g/dL (13.0-16.5); Lymphocyte # 1.02 X10^3/ul (0.83-4.51); Lymphocyte % 13.4 % (19-41); Mean Corp Hgb Conc 35.2 g/dL (32-36); Mean Corpuscular Hgb 32.8 pg (27.0-32.0); Mean Corpuscular Volume 93.4 fL (80-94); Mean Platelet Vol. 9.9 fl (6.2-12.0); Monocyte# 0.42 X10^3/uL; Monocyte% 5.5 % (0-10); NRBC Flagged by Analyzer 0 % (0-5); Neutrophil # 5.61 X10^3/uL (2.7-7.7); Neutrophil % 73.6 % (47-70); Platelet Count 380 K/mm3 (150-450); RBC Distribution Width CV 12.5 % (11.6-14.6); RBC Distribution Width SD 42.6 fl (35.1-43.9); Red Blood Count 4.11 M/mm3 (4.6-6.2); White Blood Count 7.6 K/mm3 (4.4-11.0)
--- NOTE | 2024-07-27 11:06 | EDS_ITS ---
HPI History of Present Illness Chief Complaint: GI Bleed Narrative Narrative: Chief complaint and HPI: 79-year-old male with history of CAD status post PCI on Plavix, prostate cancer status post radiation and currently on hormonal therapy with Dr. Montaño, previous GI bleed, previous colon cancer status post colonic resection presents for evaluation of GI bleed. Patient states he recently had a colonoscopy by Dr. Gonzáles. States he was told that his colon was burned from the radiation. Patient states that since his colon resection he has been having diarrhea for years. He states he had increased diarrhea yesterday. Today he noticed a large blood clot in his depends and states he had 2 more bowel movements that had blood in them. Patient endorses to drinking alcohol to help him sleep. States this has been going on for months. States he woke up at 6 AM today and took 6 shots of whiskey to help him go back to sleep. He denies any fever, chills, shortness of breath, chest pain, abdominal pain, nausea, vomiting, dysuria. Review of systems: See HPI Medications: As listed on the chart Allergies: As listed on the chart PFSH: Per chart Vital signs: As listed on the chart. Reviewed. Physical exam: Gen: A&O x3, NAD Head: Normocephalic, atraumatic Eyes: No sclera icterus, conjunctiva clear, PERRL, EOMI ENT: Moist mucous membranes Neck: Trachea midline, No JVD CV: RRR, no murmurs, no peripheral edema Resp: Lungs CTA BL, no w/r/c GI: Abd soft, non-distended, non-tender, no r/r/g Rectal: Normal external examination. No evidence of hemorrhoids or fissures. Normal tone and sensation. No masses, fluctuance, or tenderness. No pain out of proportion. Brown stool on the glove. Musc: Full ROM, no deformity Skin: Warm, dry Neuro: Alert, oriented, grossly intact, sensation intact Psych: Cooperative, appropriate mood and affect [facility] Medical History Marijuana use Prostate disease Shortness of breath on exertion Preoperative evaluation to rule out surgical contraindication Asthmatic bronchitis with exacerbation Nocturia Malignant neoplasm of colon, unspecified Heart disease Emphysema, unspecified Anxiety Frequency of micturition Chronic kidney disease, stage 3b Trigger finger Prostate CA Partial bowel obstruction Complete small bowel obstruction Elevated PSA Therapeutic drug monitoring Wears glasses Arthritis Easy bruising Excessive bleeding Back pain On home oxygen therapy Asthma Anemia Cancer Alcohol abuse Kidney stones Former smoker AAA (abdominal aortic aneurysm) Myocardial infarct Coronary artery disease Low back pain Epistaxis Sinus bradycardia Left inguinal hernia Essential (primary) hypertension Hyperlipidemia Atherosclerotic heart disease of [place] coronary artery without 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) History of ST elevation myocardial infarction (STEMI) (05/27/07) Insomnia Iron deficiency Abdominal aortic aneurysm (AAA) greater than 5.5 cm in diameter in male Hypoxia Bronchiectasis Allergy to dog dander Short bowel syndrome BPH (benign prostatic hyperplasia) Personal history of other malignant neoplasm of rectum, rectosigmoid junction, and anus Tachycardia 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 classification History of colon cancer COPD (chronic obstructive pulmonary disease) Home Medications ?Medication ?Instructions ?Recorded ?Last Taken ?Type albuterol sulfate 90 mcg/actuation 2 puff inhalation Q 4H PRN 07/02/21 Unknown Rx aerosol inhaler (Ventolin HFA) shortness of breath or wheezing #18 grams nitroglycerin 0.4 mg sublingual 0.4 mg sublingual Q5M PRN 11/16/22 Unknown Rx tablet Cardiac/Chest Pain #20 tabs Disability Placard #1 ea 02/11/23 Unknown Rx formoterol fumarate 20 mcg/2 mL 2 ml inhalation Q12H c opd #120 mL 05/06/23 Unknown Rx solution for nebulization (Perforomist) ipratropium 20 mcg-albuterol 100 1 puff inhalation Q6H #4 grams 12/08/23 Unknown Rx mcg/actuation mist for inhalation (Combivent Respimat) isosorbide mononitrate 30 mg 30 mg PO DAILY #30 TABLET S 12/10/23 Unknown Rx tablet,extended release 24 hr furosemide 40 mg tablet 40 mg PO DAILY PRN edema #30 tabs 12/13/23 Unknown Rx clopidogrel 75 mg tablet 75 mg PO DAILY #90 tabs 01/31 007/12/24 Rx verapamil 240 mg tablet,extended 240 mg PO QHS heart # 90 tabs 05/05/24 Unknown Rx release tamsulosin 0.4 mg capsule 0.4 mg PO BID prostate #180 caps 05/22/24 Unknown Rx budesonide 0.5 mg/2 mL suspension 0.5 mg (2 mL) inhala tion Q12H #180 06/14/24 Unknown Rx for nebulization mL Allergy/AdvReac Type Severity Reaction Status Date / Time aspirin Allergy Shortness Verified 07/27/24 09:43 of breath adhesive AdvReac Rash Verified 07/27/24 09:43 amoxicillin trihydrate (From AdvReac Other Verified 07/27/24 09:43 Augmentin) atorvastatin calcium (From AdvReac leg cramps Verified 07/27/24 09:43 Lipitor) isopropyl alcohol AdvReac Rash Verified 07/27/24 09:43 metoprolol succinate (From AdvReac Rash Verified 07/27/24 09:43 Toprol XL) naproxen (From Naprosyn) AdvReac Shortness Verified 07/27/24 09:43 of breath paroxetine HCl (From Paxil) AdvReac Unknown Verified 07/27/24 09:43 potassium clavulanate (From AdvReac tingling Verified 07/27/24 09:43 Augmentin) all over propoxyphene HCl (From AdvReac Unknown Verified 07/27/24 09:43 Darvon) sertraline HCl (From Zoloft) AdvReac Unknown Verified 07/27/24 09:43 simvastatin (From Zocor) AdvReac Unknown Verified 07/27/24 09:43 tiotropium bromide (From AdvReac Other Verified 07/27/24 09:43 Spiriva with HandiHaler) Family History Father Heart disease Hypertension High cholesterol CVA (cerebral vascular accident) Mother Dementia Surgical History H/O hernia repair History of left inguinal hernia repair (06/2021) Hx of thumb surgery History of esophagogastroduodenoscopy (EGD) Hx of colonoscopy Hx of sinus surgery History of endovascular stent graft for abdominal aortic aneurysm (AAA) (06/25/20) History of left heart catheterization (05/24/20) History of coronary artery stent placement (11/27/22) Hx of umbilical hernia repair Hx of appendectomy History of tonsillectomy and adenoidectomy Hx of bilateral cataract extraction Status post laparoscopic colectomy history of right eye surgery History of right inguinal hernia repair History of tonsillectomy Social History Smoking Status: Former smoker pack-years: 67 second hand exposure: No alcohol intake: former details: Previous nightly drinker. Stopped 2021 substance use type: marijuana caffeine: Yes Type: coffee Number of servings: 4 what type of physical activity do you participate in: other details: pulmonary rehab frequency: 3-4 times per week additional social history: Has had blood transfusion EXAM Physical Exam Const Vital Signs: 07/27/24 09:43 07/27/24 11:26 07/27/24 12:06 Temperature 98.1 F Temperature Source Axillary Pulse Rate 91 76 89 Respiratory Rate 17 20 H 16 Respiratory Pattern Normal Blood Pressure 141/82 H 161/69 H Blood Pressure Mean 101 99 Pulse Ox 93 98 Oxygen Delivery Method Room Air 07/27/24 14:00 07/27/24 15:43 Temperature 97.3 F L Temperature Source Pulse Rate 78 78 Respiratory Rate 16 16 Respiratory Pattern Blood Pressure 146/78 H 146/78 H Blood Pressure Mean 100 100 Pulse Ox 98 98 Oxygen Delivery Method MDM MDM MDM Narrative Medical decision making narrative: 79-year-old male with history of CAD status post PCI on Plavix, prostate cancer status post radiation and currently on hormonal therapy with Dr. Montaño, previous GI bleed, previous colon cancer status post colonic resection presents for evaluation of GI bleed. Patient endorses drinking alcohol to help him sleep. He has no interest in detox although this was offered. On chart review, patient had a colonoscopy with Dr. Gonzáles on 07/18. He had polyps removed. Diverticulosis. Multiple nonbleeding colonic angiodysplastic lesions. Differential diagnosis includes but is not limited to colitis, bleeding from angiodysplastic lesions, electrolyte abnormality, alcohol intoxication, anemia. NS bolus ordered. Abdominal pain workup ordered including CT abdomen and pelvis. Patient states he is post to receive a DuoNeb in the morning at home. He was requesting one. This was ordered. Not endorsing shortness of breath. CBC without leukocytosis or anemia. Patient is not actively vomiting at this time patient is not actively vomiting at this time. CMP with dehydration. Patient has hypokalemia of 3.2 and an anion gap of 17. His bicarb is normal. He is at his baseline CKD/renal insufficiency. I suspect that his anion gap is secondary to dehydration and his alcohol use. Lactic acid 4.1. Again, suspect that this is secondary to dehydration and alcohol use. Another NS bolus ordered making a total 2 L. Will check lactic acid after fluids. Ethanol level 127. UA negative for UTI. CT abdomen pelvis shows no acute gastrointestinal hemorrhage. Wall thickening of the gastroesophageal junction and gastric cardia region with a small subserosal fluid collection posteriorly at the gastroesophageal junction. A Justyna-Cross tear, ulceration, or neoplasm are possible considerations. Small hiatal hernia is also noted. Recommend endoscopic evaluation. There is mild diffuse wall thickening of the rectosigmoid colon, possibly due to infectious or inflammatory proctocolitis. Remote prior resection with anastomosis with chronic thickening. On reevaluation, patient is still not endorsing any abdominal pain. He states that he has not been nauseous or vomiting. Given CT abdomen pelvis, GI, Dr. Gonzáles was consulted. Given that patient has no abdominal pain or nausea and vomiting suspect that the fluid collection is incidental and does not correspond with the read from the radiologist clinically. Dr. Gonzáles does not suspect infectious etiology for the proctocolitis. Likely secondary to his dehydration and alcohol abuse causing bleeding. No need for antibiotics. Patient okay to discharge home from his perspective and follow-up outpatient. Patient and his son were updated over the results and the plan. Son and patient are unhappy with their care with GI. Asking to speak with patient advocacy. Dr. Gonzáles was made aware and patient advocacy informed. They spoke to the patient. Repeat lactic acid was performed after fluids. Lactic acid increasing to 4.8. Patient again is denying any abdominal pain, nausea, vomiting. His vitals are stable. He is not having any GI hemorrhage. At this point in time, no clear etiology for patient's lactic acid however patient will warrant admission. Maintenance fluids started. He confirmed understanding the plan. I spoke with hospitalist service, Dr. Saldivar. She accepted admission. I respoke with Dr. Gonzáles, no concern from GI perspective. Impression: 1. GI bleed secondary to low flow state with known radiation proctocolitis 2. Lactic acidosis of unknown etiology 3. Alcohol intoxication with alcohol abuse Lab Data Labs: Laboratory Results - last 24 hr 07/27/24 07/27/24 07/27/24 10:20 13:20 13:28 WBC 7.6 RBC 4.11 L Hgb 13.5 Hct 38.4 L MCV 93.4 MCH 32.8 H MCHC 35.2 RDW Std Deviation 42.6 RDW Coeff of Kylee 12.5 Plt Count 380 MPV 9.9 Immature Gran % (Auto) 0.300 Neut % (Auto) 73.6 H Lymph % (Auto) 13.4 L [place] % (Auto) 5.5 Eos % (Auto) 6.0 H Baso % (Auto) 1.2 H Absolute Neuts (auto) 5.6 Absolute Lymphs (auto) 1.02 Nucleated RBC % 0 Sodium 143 Potassium 3.2 L Chloride 102 Carbon Dioxide 24.1 Anion Gap 17 H BUN 33 H Creatinine 1.51 H Estim Creat Clear Calc 36.04 L Est GFR (MDRD) Non-Af 46 L BUN/Creatinine Ratio 21.7 H Glucose 84 Lactic Acid 4.1 H* 4.8 H* Calcium 9.8 Total Bilirubin 0.56 AST 27 ALT 15 Alkaline Phosphatase 74 Total Protein 6.5 Albumin 4.3 Globulin 2.2 Albumin/Globulin Ratio 1.9 Lipase 47 Urine Color Yellow Urine Clarity Clear Urine pH 6.0 Ur Specific Hoffman 1.015 Urine Protein 15 H Urine Glucose (UA) Normal Urine Ketones 5 H Urine Occult Blood Negative Urine Nitrite Negative Urine Bilirubin Negative Urine Urobilinogen Normal Ur Leukocyte Esterase Negative Urine RBC 0 SEEN Urine WBC 0 SEEN Ur Squamous Epith Cells 0 SEEN Urine Bacteria 0 SEEN Urine Mucus 0 SEEN Ethyl Alcohol 127.0 H Radiography Diagnostic Testing: Clinical Impression(s) from Imaging Studies Abdomen/Pelvis CT 07/27/24 12:22 IMPRESSION: 1. No acute gastrointestinal hemorrhage identified within the limits of this venous phase exam. 2. Wall thickening at the gastroesophageal junction and gastric cardia region with a small subserosal fluid collection posteriorly at the gastroesophageal junction. A Justyna-Cross tear, ulceration or neoplasm are possible considerations. A small hiatal hernia is also noted. Endoscopic evaluation is recommended. 3. Mild diffuse wall thickening of the rectosigmoid colon, possibly due to infectious or inflammatory proctocolitis. 4. Remote prior partial colonic resection at the rectosigmoid junction with chronic soft tissue thickening of the presacral region. 5. Mild colonic diverticulosis. 6. Other chronic findings in the body of the report. Reading Location: [facility] Discharge Plan Disposition Disposition: Acute Care Hospital [facility] Discharge Date/Time: 07/27/24 16:35
[2024-07-27 11:20] LABS: Lipase 47 U/L (13-75)
[2024-07-27] MEDS: Ipratropium/Albuterol Sulfate 3 ML AMPUL.NEB INHALATION (11:24)
[2024-07-27 11:34] LABS: Lactic Acid 4.1 mmol/L (0.0-2.0)
[2024-07-27 11:39] LABS: ALB/GLOB Ratio 1.9 RATIO (0.9-2.4); AST(SGOT) 27 U/L (<=37); Alanine Aminotransfer ALT/SGPT 15 U/L (<=46); Albumin, Serum 4.3 g/dL (3.4-4.8); Alkaline Phosphatase 74 U/L (40-129); Anion Gap 17 (5-15); BUN 33 mg/dL (4-19); BUN/Creat Ratio 21.7 RATIO (10-20); Calcium,Total 9.8 mg/dL (7.6-11.0); Carbon Dioxide 24.1 mmol/L (21.0-32.0); Chloride 102 mmol/L (98-108); Creatinine, Serum 1.51 mg/dL (0.70-1.20); EST Glomerular Filtration Rate 46 (>60); Estimated Creatinine Clearance 36.04 ml/min (50-250); Globulin 2.2 g/dL (2.2-4.2); Glucose 84 mg/dL (70-99); Potassium 3.2 mmol/L (3.3-5.1); Protein, Total 6.5 g/dL (5.9-8.4); Sodium Level 143 mmol/L (133-145); Total Bilirubin 0.56 mg/dL (0.00-1.30)
[2024-07-27] MEDS: 0.9% Normal Saline (1000mL) 1,000 ML 1000 ML IV (12:21)
--- NOTE | 2024-07-27 12:22 | CT_ITS ---
PROCEDURE: ABDOMEN/PELVIS W IV CONT ONLY 07/27/2024 REASON FOR EXAM: GI BLEED TECHNIQUE: Abdomen and pelvis CT with intravenous contrast. Coronal and Sagittal reconstruction series were provided. One or more dose reduction techniques were used (e.g., Automated exposure control, adjustment of the mA and/or kV according to patient size, use of iterative reconstruction technique. COMPARISON: 08/26/2022 FINDINGS: Lower chest: Emphysematous disease present in the lung bases. Liver: There is a small hypodense lesion along the falciform ligament measuring 1.2 cm, which was seen on the previous exam, likely a small hemangioma. Biliary/gallbladder: Unremarkable. Pancreas: Unremarkable. Spleen: Unremarkable. Adrenal glands: Unremarkable. Kidneys: Multiple bilateral renal cysts are present. There is mild bilateral renal atrophy. Gastrointestinal/peritoneum: A small hiatal hernia is present.There is wall thickening at the gastroesophageal junction and gastric cardia region with a small amount of subserosal fluid seen at the posterior gastroesophageal junction, seen on image 17 of series 2.. Wall thickening is also present at the rectosigmoid colon diffusely. There is a surgical anastomosis at the rectosigmoid junction from a previous partial colonic resection. Presacral soft tissue thickening is present in this region, as seen on image 80 of series 2, which appear similar from the previous exam. Mild colonic diverticulosis is present. No acute gastrointestinal hemorrhage is visualized within the limits of this venous phase contrast enhanced exam. Prior appendectomy.No free air or free fluid. Vascular: Infrarenal aortic aneurysm status post aorto bi-iliac stent graft repair. The excluded aneurysm sac measures 4.8 x 4.3 cm in diameter and previously measured 5.7 x 4.8 cm. There are moderate scattered atherosclerotic calcifications. Lymph nodes: No enlarged lymph nodes by CT size criteria. Pelvic organs: Brachytherapy seeds present in the prostate gland. Bladder: Unremarkable. Bones: Unremarkable. Soft tissues: Unremarkable. CT/Abdomen/Pelvis W IV Cont ONLY IMPRESSION: 1. No acute gastrointestinal hemorrhage identified within the limits of this ve nous phase exam. 2. Wall thickening at the gastroesophageal junction and gastric cardia region w ith a small subserosal fluid collection posteriorly at the gastroesophageal junction. A Justyna-Cross tear, ulceration or neoplasm are possible considerations. A small hiatal hernia is also noted. Endoscopic evaluation is recommended. 3. Mild diffuse wall thickening of the rectosigmoid colon, possibly due to infe ctious or inflammatory proctocolitis. 4. Remote prior partial colonic resection at the rectosigmoid junction with chr onic soft tissue thickening of the presacral region. 5. Mild colonic diverticulosis. 6. Other chronic findings in the body of the report. Reading [facility]
[2024-07-27 13:23] LABS: Bacteria 0 SEEN /hpf (None Seen); Mucous, Urine 0 SEEN /hpf (<or=2+); Squamous Epithelial Cells - UA 0 SEEN /hpf (0-5); White Blood Cells 0 SEEN /hpf (0-5)
[2024-07-27 13:27] LABS: Color, Urine Yellow (Yellow); Glucose, Dipstick Normal (Normal); Ketone-Dipstick 5 mg/dl (Negative); Leukocyte Esterase-Dipstick Negative /ul (Negative); Nitrite-Dipstick Negative (Negative); Occult Blood-Urine Negative /ul (Negative); Protein-Dipstick 15 mg/dl (Negative); Specific Gravity, Urine 1.015 (1.002-1.030); Urine Bilirubin Dipstick Negative (Negative); Urine Clarity Clear (Clear); Urine Urobilinogen Normal (Normal)
[2024-07-27 13:42] LABS: Red Blood Cells-Urine 0 SEEN /hpf (0-5)
[2024-07-27 14:24] LABS: Lactic Acid 4.8 mmol/L (0.0-2.0)
[2024-07-27] MEDS: Potassium Chloride Oral Soln 20 MEQ/15 ML UDC 40 MEQ PO (14:30)
--- NOTE | 2024-07-27 16:08 | PCM.HP.STD ---
HPI - General General Date of Admission: 07/27/24 Date of Service: 07/27/24 Chief Complaint: Diarrhea and blood in stool HPI Narrative BETTE ASTORGA, is a 79M with history of coronary artery disease status post PCI on Plavix, prostate cancer status post radiation and current hormonal therapy with Dr. Montaño, previous colon cancer status post colon resection, previous GI bleed presented to [facility] ED 07/27/2024 for evaluation of repeat GI bleed. He recently had colonoscopy by Dr. Gonzáles and patient states he was told his colon was burned from radiation. Since his colon resection years ago he has been having diarrhea and notes that yesterday his diarrhea increased and he noted a large blood clot in his depends today with 2 further bowel movements that have blood in them. Patient has also been drinking alcohol daily to help him sleep and has been doing so for months. States he woke up at 6 AM today and took 6 shots of whiskey to help him go back to sleep. In the ED patient with heart rate of 91 and blood pressure 141/82, respiratory rate 17 with pulse ox of 93%. Patient's hemoglobin 13.5, yesterday was 14, presently at baseline but is FOBT positive. Additionally creatinine 1.51 which seems to be at baseline and potassium of 3.2. Lactic acid also elevated at 4.1 without trend of 4.8. Patient had CT of the abdomen and pelvis in the ED which showed no acute hemorrhage identified but wall thickening at the GE junction and gastric cardia with small subserosal fluid collection posteriorly, Justyna-Cross tear and ulceration or neoplasm are considerations. Patient also with mild diffuse wall thickening of the rectosigmoid colon, possibly due to infectious or inflammatory proctocolitis. GI contacted and it was felt that patient's dehydration and diarrhea were irritating his known lesions and that patient is stable and no acute inpatient management needed from a GI standpoint, vitally stable, hemoglobin stable. It was recommended the patient follow-up outpatient. Hospitalist contacted for admission for patient's dehydration and elevated lactic acid. Patient evaluated at bedside and he does report he has frequent diarrhea and has been having blood in his stool since before March, he has very poor p.o. intake both food and liquids but is continued to take his Lasix as prescribed for leg swelling, usually takes about 2 shots at bedtime but over this past week drank about 1/5, denies any day drinking, denies any history of alcohol withdraw or adverse symptoms if he does not drink. Reports he chronically has some abdominal tenderness centrally and this is unchanged, no nausea or vomiting, no urinary symptoms. [facility] Medical History Marijuana use Prostate disease Shortness of breath on exertion Preoperative evaluation to rule out surgical contraindication Asthmatic bronchitis with exacerbation Nocturia Malignant neoplasm of colon, unspecified Heart disease Emphysema, unspecified Anxiety Frequency of micturition Chronic kidney disease, stage 3b Trigger finger Prostate CA Partial bowel obstruction Complete small bowel obstruction Elevated PSA Therapeutic drug monitoring Wears glasses Arthritis Easy bruising Excessive bleeding Back pain On home oxygen therapy Asthma Anemia Cancer Alcohol abuse Kidney stones Former smoker AAA (abdominal aortic aneurysm) Myocardial infarct Coronary artery disease Low back pain Epistaxis Sinus bradycardia Left inguinal hernia Essential (primary) hypertension Hyperlipidemia Atherosclerotic heart disease of [place] coronary artery without 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) History of ST elevation myocardial infarction (STEMI) (05/27/07) Insomnia Iron deficiency Abdominal aortic aneurysm (AAA) greater than 5.5 cm in diameter in male Hypoxia Bronchiectasis Allergy to dog dander Short bowel syndrome BPH (benign prostatic hyperplasia) Personal history of other malignant neoplasm of rectum, rectosigmoid junction, and anus Tachycardia 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 classification History of colon cancer COPD (chronic obstructive pulmonary disease) Home Medications ?Medication ?Instructions ?Recorded ?Last Taken ?Type albuterol sulfate 90 mcg/actuation 2 puff inhalation Q4H PRN 07/02/21 Unknown Rx aerosol inhaler (Ventolin HFA) shortness of breath or wheezing #18 grams nitroglycerin 0.4 mg sublingual 0.4 mg sublingual Q5M PRN 11/16/22 Unknown Rx tablet Cardiac/Chest Pain #20 tabs Disability Placard #1 ea 02/11/23 Unknown Rx formoterol fumarate 20 mcg/2 mL 2 ml inhalation Q12H copd #120 mL 05/06/23 Unknown Rx solution for nebulization (Perforomist) ipratropium 20 mcg-albuterol 100 1 puff inhalation Q6H #4 grams 12/08/23 Unknown Rx mcg/actuation mist for inhalation (Combivent Respimat) isosorbide mononitrate 30 mg 30 mg PO DAILY #30 TABLETS 12/10/23 Unknown Rx tablet,extended release 24 hr furosemide 40 mg tablet 40 mg PO DAILY PRN edema #30 tabs 12/13/23 Unknown Rx clopidogrel 75 mg tablet 75 mg PO DAILY #90 tabs 02/10/24 07/12/24 Rx verapamil 240 mg tablet,extended 240 mg PO QHS heart #90 tabs 05/05/24 Unknown Rx release tamsulosin 0.4 mg capsule 0.4 mg PO BID prostate #180 caps 05/22/24 Unknown Rx budesonide 0.5 mg/2 mL suspension 0.5 mg (2 mL) inhalation Q12H #180 06/14/24 Unknown Rx for nebulization mL Allergy/AdvReac Type Severity Reaction Status Date / Time aspirin Allergy Shortness Verified 07/27/24 09:43 of breath adhesive AdvReac Rash Verified 07/27/24 09:43 amoxicillin trihydrate (From AdvReac Other Verified 07/27/24 09:43 Augmentin) atorvastatin calcium (From AdvReac leg cramps Verified 07/27/24 09:43 Lipitor) isopropyl alcohol AdvReac Rash Verified 07/27/24 09:43 metoprolol succinate (From AdvReac Rash Verified 07/27/24 09:43 Toprol XL) naproxen (From Naprosyn) AdvReac Shortness Verified 07/27/24 09:43 of breath paroxetine HCl (From Paxil) AdvReac Unknown Verified 07/27/24 09:43 potassium clavulanate (From AdvReac tingling Verified 07/27/24 09:43 Augmentin) all over propoxyphene HCl (From AdvReac Unknown Verified 07/27/24 09:43 Darvon) sertraline HCl (From Zoloft) AdvReac Unknown Verified 07/27/24 09:43 simvastatin (From Zocor) AdvReac Unknown Verified 07/27/24 09:43 tiotropium bromide (From AdvReac Other Verified 07/27/24 09:43 Spiriva with HandiHaler) Family History Father Heart disease Hypertension High cholesterol CVA (cerebral vascular accident) Mother Dementia Surgical History H/O hernia repair History of left inguinal hernia repair (06/2021) Hx of thumb surgery History of esophagogastroduodenoscopy (EGD) Hx of colonoscopy Hx of sinus surgery History of endovascular stent graft for abdominal aortic aneurysm (AAA) (06/25/20) History of left heart catheterization (05/24/20) History of coronary artery stent placement (11/27/22) Hx of umbilical hernia repair Hx of appendectomy History of tonsillectomy and adenoidectomy Hx of bilateral cataract extraction Status post laparoscopic colectomy history of right eye surgery History of right inguinal hernia repair History of tonsillectomy Social History Smoking Status: Former smoker pack-years: 67 second hand exposure: No alcohol intake: former details: Previous nightly drinker. Stopped 2021 substance use type: marijuana caffeine: Yes Type: coffee Number of servings: 4 what type of physical activity do you participate in: other details: pulmonary rehab frequency: 3-4 times per week additional social history: Has had blood transfusion ROS ROS Narrative General: Denies fever/chills HENT: Denies headache, denies stuffy nose, denies sore throat but does wake up and notes he has a lot of mucus production but this is not new EYES: Denies changes in vision Resp: Denies cough, some chronic shortness of breath with the COPD Cardiac: Denies chest pain GI: Reports some chronic abdominal pain with no change from baseline, has continued to have diarrhea, noted some further blood in stool today, he is unsure if he has had any more since coming to the ED as he has a depends on, no nausea : Denies changes in urination Extremity: Gets some intermittent swelling in lower extremities MSK: Denies weakness Neuro: Denies any numbness/tingling Heme: Easy bruising Skin: Denies rashes Psychiatric: No complaints voiced Vital Signs Vital Signs Vital Signs: 07/27/24 09:43 07/27/24 11:26 07/27/24 12:06 Temperature 98.1 F Temperature Source Axillary Pulse Rate 91 76 89 Respiratory Rate 17 20 H 16 Respiratory Pattern Normal Blood Pressure 141/82 H 161/69 H Blood Pressure Mean 101 99 Pulse Ox 93 98 Oxygen Delivery Method Room Air 07/27/24 14:00 07/27/24 15:43 Temperature 97.3 F L Temperature Source Pulse Rate 78 78 Respiratory Rate 16 16 Respiratory Pattern Blood Pressure 146/78 H 146/78 H Blood Pressure Mean 100 100 Pulse Ox 98 98 Oxygen Delivery Method Weight Weight: 65.3 kg Body Mass Index (BMI) 22.5 Results Lab / Micro Data 07/27/24 10:20 07/27/24 10:20 Labs: Laboratory Results - last 24 hr 07/27/24 10:20: WBC 7.6, RBC 4.11 L, Hgb 13.5, Hct 38.4 L, MCV 93.4, MCH 32.8 H, MCHC 35.2, RDW Std Deviation 42.6, RDW Coeff of Kylee 12.5, Plt Count 380, MPV 9.9, Immature Gran % (Auto) 0.300, Neut % (Auto) 73.6 H, Lymph % (Auto) 13.4 L, Slope % (Auto) 5.5, Eos % (Auto) 6.0 H, Baso % (Auto) 1.2 H, Absolute Neuts (auto) 5.6, Absolute Lymphs (auto) 1.02, Nucleated RBC % 0, Sodium 143, Potassium 3.2 L, Chloride 102, Carbon Dioxide 24.1, Anion Gap 17 H, BUN 33 H, Creatinine 1.51 H, Estim Creat Clear Calc 36.04 L, Est GFR (MDRD) Non-Af 46 L, BUN/Creatinine Ratio 21.7 H, Glucose 84, Lactic Acid 4.1 H*, Calcium 9.8, Total Bilirubin 0.56, AST 27, ALT 15, Alkaline Phosphatase 74, Total Protein 6.5, Albumin 4.3, Globulin 2.2, Albumin/Globulin Ratio 1.9, Lipase 47, Ethyl Alcohol 127.0 H 07/27/24 13:20: Urine Color Yellow, Urine Clarity Clear, Urine pH 6.0, Ur Specific [place] 1.015, Urine Protein 15 H, Urine Glucose (UA) Normal, Urine Ketones 5 H, Urine Occult Blood Negative, Urine Nitrite Negative, Urine Bilirubin Negative, Urine Urobilinogen Normal, Ur Leukocyte Esterase Negative, Urine RBC 0 SEEN, Urine WBC 0 SEEN, Ur Squamous Epith Cells 0 SEEN, Urine Bacteria 0 SEEN, Urine Mucus 0 SEEN 07/27/24 13:28: Lactic Acid 4.8 H* Micro: Microbiology 07/27/24 10:12 Stool Stool Occult Blood (WINTER) - Final Occult Blood Positive Imaging Radiology Impression Abdomen/Pelvis CT 07/27/24 12:22 IMPRESSION: 1. No acute gastrointestinal hemorrhage identified within the limits of this venous phase exam. 2. Wall thickening at the gastroesophageal junction and gastric cardia region with a small subserosal fluid collection posteriorly at the gastroesophageal junction. A Justyna-Cross tear, ulceration or neoplasm are possible considerations. A small hiatal hernia is also noted. Endoscopic evaluation is recommended. 3. Mild diffuse wall thickening of the rectosigmoid colon, possibly due to infectious or inflammatory proctocolitis. 4. Remote prior partial colonic resection at the rectosigmoid junction with chronic soft tissue thickening of the presacral region. 5. Mild colonic diverticulosis. 6. Other chronic findings in the body of the report. Reading [facility] Assessment & Plan Assessment/Plan (1) Elevated lactic acid level: (2) Dehydration: PLAN: Plan # Elevated lactic acid and dehydration -Patient reports very poor p.o. intake on top of diarrhea and taking Lasix -Appears clinically dehydrated -Initial lactic acid 4.3 and up trended to 4.8, patient on IV fluids -Will recheck BMP, initial BMP with a gap of 17 however bicarb within normal limits -Also check VBG -Will repeat lactic acid later for further assessment as well # Blood per rectum in setting of chronic changes from radiation and partial colonic resection in 2007 for colon cancer - CT of the abdomen and pelvis in the ED which showed no acute hemorrhage identified but wall thickening at the GE junction with mild diffuse wall thickening of the rectosigmoid colon -ED 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 Per report it was felt that patient's bleeding was from his diarrhea and dehydration and that this can be followed up outpatient as it was part of his chronic problems that are being managed -Hemoglobin was 13.5 which is his baseline -Continue home PPI -Will continue home Plavix unless significant drop or significant bleeding necessitating inpatient GI consult -Expect patient's hemoglobin will decrease tomorrow given he is receiving IV fluids, if drop is out of proportion or patient having significant blood per rectum could consider recontacting GI to assess for any updated recommendations. -Repeat hemoglobin in the a.m. or sooner if there are concerns for increased bleeding # Alcohol abuse -EtOH 127 in the ED -Patient reports he drinks nightly -Denies any history of withdrawal or DTs or withdrawal symptoms if he does not drink -Did drink somewhat more this week compared to usual -CIWA with as needed Ativan -Thiamine and folate #Hypokalemia -Replace -Repeat in the AM # CKD stage III a -Appears to be at baseline -Avoid nephrotoxic agents -Daily BMPs # History of borderline EF -In 2022 patient's EF was estimated at 45% with wall motion abnormalities, unable to assess diastolic function -Daily weights, I's and O's -Will hydrate cautiously -Appears patient is feeling Imdur so we will continue, will need to verify if patient is on verapamil prior to continuing # COPD -Continue home inhalers -Albuterol as needed # History of coronary artery disease status post PCI -History of 9 stents -On home Plavix # Prostate cancer status post radiation and currently on hormonal therapy -Follows with Dr. Montaño #Chronic BPH with obstruction -Continue home medications #DVT ppx: SCDs Tiki Saldivar MD Charges/Coding Visit Charges Inpatient E&M: 31208 Init Hosp L2
[2024-07-27] MEDS: 0.9% Normal Saline (1000mL) 1,000 ML 75 ML IV (16:19)
[2024-07-27] MEDS: 0.9% Normal Saline (1000mL) 1,000 ML 50 ML IV (17:00)
[2024-07-27 17:39] LABS: Blood Gas Specimen Type VEN; O2 Delivery Device Not entered; SITE vein; VBG BASE EXCESS -2 mmol/L (-1.0-3.5); VBG Bicarbonate 22 mmol/L (22-26); VBG PO2 31 mmHg (25-40); VBG SO2 67 % (50-70); VBG TCO2 23 mmol/L (23-33); VBG pCO2 28.1 mmHg (41-51)
--- NOTE | 2024-07-27 17:47 | CASEMGMT ---
Care Management Face to Face with patient for initial transition planning/care coordination assessment in the ED.? 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 Patient alert and oriented. Patient willing to participate in assessment and is able to answer all questions appropriately.? Care providers, pharmacy, and demographics verified. Admitting Diagnosis: GI Bleed Other diagnosis history: prostate disease, heart disease, arthritis, PCP: Mike Specialists: ?Maryan Lyon Proana Preferred [facility]acy: [facility] Insurance: ?Medicare Prescription Benefit: yes Living Will/HPOA: ?LW and HPOA on file LNOK: Rbo Bailey Living Arrangements: Patient lives alone in a 1 story home, 3 steps to enter. Patient reports to being independent with ADLs and IADLs. Transportation: patient drives DME: walk in shower, cane, walker HHC: none SNF/Rehab: none Community Resources: none Behavioral Health History: denies Patient goals: Patient wishes to discharge home, denies need for home health care at this time. Patient denies any further needs or concerns at this time. Disposition Plan: admission to acute; RN CM/SW to follow for discharge planning needs that may arise. Chrystal Roberts, CRYPTANALYST, BOBBIN WINDER TENDER
[2024-07-27 18:52] LABS: Anion Gap 18 (5-15); BUN 3 mg/dL (4-19); BUN/Creat Ratio 2.2 RATIO (10-20); Calcium,Total 8.5 mg/dL (7.6-11.0); Carbon Dioxide 17.7 mmol/L (21.0-32.0); Chloride 107 mmol/L (98-108); Creatinine, Serum 1.31 mg/dL (0.70-1.20); EST Glomerular Filtration Rate 55 (>60); Estimated Creatinine Clearance 38.36 ml/min (50-250); Glucose 54 mg/dL (70-99); Potassium 3.8 mmol/L (3.3-5.1); Sodium Level 143 mmol/L (133-145)
[2024-07-27] MEDS: Albuterol 2.5 MG/3 ML VIAL.NEB. INHALATION (19:56)
[2024-07-27] MEDS: Budesonide Respules 0.5 MG/2 ML AMPUL.NEB. INHALATION (19:57)
[2024-07-27 20:23] LABS: Lactic Acid 1.9 mmol/L (0.0-2.0)
[2024-07-27 20:27] LABS: Allen Test Positive; Base Excess -2 mmol/L (-2 to +2); Bicarbonate 22.4 mmol/L (22-26); Blood Gas Specimen Type ART; Mode Not entered; O2 Delivery Device Room Air; PO2 68 mmHG (75-100); SITE L Radial; SO2 94 % (95-99); Total Carbon Dioxide 23 mmol/L; pCO2 32.4 mmHg (35-45); pH 7.45 (7.35-7.45)
[2024-07-27 23:46] LABS: Bedside Glucose 139 mg/dL (74-106)
[2024-07-28 04:14] VITALS: BP 160/83; PULSE 77; RESP 18; TEMP 36.4; O2SAT 99
[2024-07-28 06:00] VITALS: BMI 20.8
[2024-07-28 06:24] LABS: Bedside Glucose 94 mg/dL (74-106)
[2024-07-28 06:39] LABS: Absolute Lymphocyte Count 0.98 X10^3/uL (0.83-4.51); Absolute Neutrophil Count 5.4 X10^3/uL (2.0-7.7); Basophil# 0.09 X10^3/uL; Basophil% 1.2 % (0-1); Eosinophil# 0.51 X10^3/uL; Eosinophils% 6.6 % (0-5); Hematocrit 35.9 % (40-54); Hemoglobin 12.6 g/dL (13.0-16.5); Lymphocyte # 0.98 X10^3/ul (0.83-4.51); Lymphocyte % 12.7 % (19-41); Mean Corp Hgb Conc 35.1 g/dL (32-36); Mean Corpuscular Hgb 32.6 pg (27.0-32.0); Mean Platelet Vol. 9.9 fl (6.2-12.0); Monocyte# 0.67 X10^3/uL; Monocyte% 8.7 % (0-10); NRBC Flagged by Analyzer 0 % (0-5); Neutrophil # 5.43 X10^3/uL (2.7-7.7); Neutrophil % 70.4 % (47-70); Platelet Count 323 K/mm3 (150-450); RBC Distribution Width CV 12.4 % (11.6-14.6); RBC Distribution Width SD 42.3 fl (35.1-43.9); Red Blood Count 3.86 M/mm3 (4.6-6.2); White Blood Count 7.7 K/mm3 (4.4-11.0)
[2024-07-28 06:48] LABS: International Normalized Ratio 1.1; Prothrombin Time (Protime)PT. 14.2 SECONDS (11.7-14.9)
[2024-07-28] MEDS: Budesonide Respules 0.5 MG/2 ML AMPUL.NEB. INHALATION (07:08)
[2024-07-28] MEDS: Albuterol 2.5 MG/3 ML VIAL.NEB. INHALATION ×2 (07:08→13:36)
[2024-07-28 07:09] VITALS: PULSE 100; RESP 18; O2SAT 91
[2024-07-28 07:32] LABS: Magnesium 1.7 mg/dL (1.5-2.2)
[2024-07-28 07:47] LABS: ALB/GLOB Ratio 2.2 RATIO (0.9-2.4); AST(SGOT) 28 U/L (<=37); Alanine Aminotransfer ALT/SGPT 15 U/L (<=46); Albumin, Serum 3.9 g/dL (3.4-4.8); Alkaline Phosphatase 65 U/L (40-129); Anion Gap 12 (5-15); BUN 19 mg/dL (4-19); BUN/Creat Ratio 15.5 RATIO (10-20); Calcium,Total 9.3 mg/dL (7.6-11.0); Carbon Dioxide 23.3 mmol/L (21.0-32.0); Chloride 106 mmol/L (98-108); Creatinine, Serum 1.19 mg/dL (0.70-1.20); EST Glomerular Filtration Rate 62 (>60); Globulin 1.8 g/dL (2.2-4.2); Glucose 89 mg/dL (70-99); Potassium 3.5 mmol/L (3.3-5.1); Protein, Total 5.7 g/dL (5.9-8.4); Sodium Level 141 mmol/L (133-145); Total Bilirubin 0.73 mg/dL (0.00-1.30)
[2024-07-28 09:00] VITALS: O2SAT 93
[2024-07-28] MEDS: Tamsulosin HCl 0.4 MG Capsule PO (09:01)
[2024-07-28] MEDS: Clopidogrel Bisulfate 75 MG Tablet PO (09:01)
[2024-07-28] MEDS: Isosorbide Mononitrate 30 MG Tablet PO (09:02)
[2024-07-28 10:11] VITALS: BP 152/88; PULSE 102; RESP 16; TEMP 36.3; O2SAT 93
--- NOTE | 2024-07-28 11:06 | CASEMGMT ---
Social Work- SW met with pt and pt son, Rob, to complete SDOH assessment. SW introduced self and role; pt agreeable to meeting. Pt agreeable to son being present. Pt reports that his dies in June and he is now living on a much smaller income of $16,500. Pt and bought the home a few years ago and there is already a reverse mortgage on the home and pt credit card has a high balance. Pt son is concerned that in the next 6-12 months that pt will financially be forced to move from his home. Pt reports that he is doing a debt relief program and hopes to remain in the home. Pt reports that he is uncertain if utilities and food will be a concern moving forward, but they have not been a concern in the past. Pt reports that he drives and owns his own car. Pt cites no safety concerns. Pt declines wanting grief support. Pt declines delivered meals. Pt is open to information on [employer] for utilities assistance and [facility] referral. SW also provided [facility] and food resources, as well as [facility] [employer]. Pt has a 2 year old dog that he acquired as a puppy that keeps him moving and gives him a sense of purpose. Pt reports 3 steps into home and 12 stairs to the basement and reports that he has no concerns about ability to navigate stairs. Pt son reports that he does not come does not come down to visit pt often, as he lives and works out of town, but shared that he is going to make an effort to visit at least once per month. Pt and pt son report no other concerns at this time. LISA Tobar
[2024-07-28 12:25] LABS: Bedside Glucose 129 mg/dL (74-106)
[2024-07-28 12:34] LABS: Hematocrit 37.9 % (40-54); Hemoglobin 13.1 g/dL (13.0-16.5)
--- NOTE | 2024-07-28 12:57 | PCM.DC ---
Discharge Instructions Diet Discharge Diet: Low fat / Low cholesterol DC O2, CPAP, BIPAP needs Home O2 Discharge instructions: No Dressing / Incision Discharge Activity: Return to Normal Activity Dressing / Incision Call your doctor if you observe: Fever of 101 or Higher, Shortness of breath, Dizziness, Fainting spells, Swelling in the ankles, Chest pain and Increased palpitations (irregular heartbeat) Follow Up Care Test Results: Test results from this visit will be discussed in further detail at your follow-up appointment, if applicable. Discharge Plan Admission Admit Date/Time: 07/27/24 16:08 Attending Provider: Rhys Fontana Primary Care Provider: Jeremiah Mckeon Consulting Providers: Tiki Saldivar Discharge Orders/Prescriptions Prescriptions: Continued nitroglycerin 0.4 mg Tablet, Sublingual 0.4 mg sublingual Q5M PRN (Reason: Cardiac/Chest Pain) Qty: 20 0RF (DME) Disability Placard See Rx Instructions .ROUTE .MEDSUPPLY Qty: 1 0RF Rx Instructions: [id number] formoterol fumarate [Perforomist] 20 mcg/2 mL solution for nebulization 2 ml inhalation Q12H Qty: 120 11RF isosorbide mononitrate 30 mg tablet extended release 24 hr 30 mg PO DAILY Qty: 30 11RF furosemide 40 mg tablet 40 mg PO DAILY PRN (Reason: edema) Qty: 30 6RF clopidogrel 75 mg tablet 75 mg PO DAILY Qty: 90 3RF verapamil 240 mg tablet extended release 240 mg PO QHS Qty: 90 3RF tamsulosin 0.4 mg capsule 0.4 mg PO BID Qty: 180 1RF Rx Instructions: take one tab PO bid budesonide 0.5 mg/2 mL suspension for nebulization 0.5 mg inhalation Q12H Qty: 180 11RF Referrals / Follow Up: Marian Rodriguez PA [Med Staff - Adv Practice Prof] - 08/02/24 10:00 am Jeremiah Mckeon, [employer] [Primary Care Provider] - Within 1 Week Disposition Disposition (needs filled in before D/C Order can be placed): Home, Self Care
[2024-07-28 13:36] VITALS: PULSE 98; RESP 18; O2SAT 91
--- NOTE | 2024-07-28 13:59 | PCM.DC.SUM ---
Providers Date of Admission: 07/27/24 Primary Care Physician: KAI BurkC Reason For Visit: LACTIC ACID ELEVATION AND DEHYDRATION Diagnosis Discharge Diagnosis (1) Elevated lactic acid level: Status: Acute Code(s): R79.89 - Other specified abnormal findings of blood chemistry (2) Dehydration: Status: Acute Code(s): E86.0 - Dehydration Medications at Discharge Home Medications nitroglycerin 0.4 mg sublingual tablet 0.4 mg sublingual Q5M PRN Cardiac/Chest Pain #20 tabs 11/16/22 Disability Placard #1 ea 02/11/23 formoterol fumarate 20 mcg/2 mL solution for nebulization (Perforomist) 2 ml inhalation Q12H copd #120 mL 05/06/23 isosorbide mononitrate 30 mg tablet,extended release 24 hr 30 mg PO DAILY heart #30 TABLETS 12/10/23 furosemide 40 mg tablet 40 mg PO DAILY PRN edema #30 tabs 12/13/23 clopidogrel 75 mg tablet 75 mg PO DAILY anti platelet #90 tabs 02/10/24 verapamil 240 mg tablet,extended release 240 mg PO QHS heart #90 tabs 05/05/24 tamsulosin 0.4 mg capsule 0.4 mg PO BID prostate #180 caps 05/22/24 budesonide 0.5 mg/2 mL suspension for nebulization 0.5 mg (2 mL) inhalation Q12H breathing #180 mL 06/14/24 Hospital Course Operations None Procedures None Summary of Care Provided Minutes Spent on Discharge: 38 Hospital Course: Per HPI: BETTE ASTORGA, is a 79M with history of coronary artery disease status post PCI on Plavix, prostate cancer status post radiation and current hormonal therapy with Dr. Montaño, previous colon cancer status post colon resection, previous GI bleed presented to [facility] ED 07/27/2024 for evaluation of repeat GI bleed. He recently had colonoscopy by Dr. Gonzáles and patient states he was told his colon was burned from radiation. Since his colon resection years ago he has been having diarrhea and notes that yesterday his diarrhea increased and he noted a large blood clot in his depends today with 2 further bowel movements that have blood in them. Patient has also been drinking alcohol daily to help him sleep and has been doing so for months. States he woke up at 6 AM today and took 6 shots of whiskey to help him go back to sleep. In the ED patient with heart rate of 91 and blood pressure 141/82, respiratory rate 17 with pulse ox of 93%. Patient's hemoglobin 13.5, yesterday was 14, presently at baseline but is FOBT positive. Additionally creatinine 1.51 which seems to be at baseline and potassium of 3.2. Lactic acid also elevated at 4.1 without trend of 4.8. Patient had CT of the abdomen and pelvis in the ED which showed no acute hemorrhage identified but wall thickening at the GE junction and gastric cardia with small subserosal fluid collection posteriorly, Justyna-Cross tear and ulceration or neoplasm are considerations. Patient also with mild diffuse wall thickening of the rectosigmoid colon, possibly due to infectious or inflammatory proctocolitis. GI contacted and it was felt that patient's dehydration and diarrhea were irritating his known lesions and that patient is stable and no acute inpatient management needed from a GI standpoint, vitally stable, hemoglobin stable. It was recommended the patient follow-up outpatient. Hospitalist contacted for admission for patient's dehydration and elevated lactic acid. Patient evaluated at bedside and he does report he has frequent diarrhea and has been having blood in his stool since before March, he has very poor p.o. intake both food and liquids but is continued to take his Lasix as prescribed for leg swelling, usually takes about 2 shots at bedtime but over this past week drank about 1/5, denies any day drinking, denies any history of alcohol withdraw or adverse symptoms if he does not drink. Reports he chronically has some abdominal tenderness centrally and this is unchanged, no nausea or vomiting, no urinary symptoms. Hospital Course: 1. Bright red blood per rectum status post radiation and partial colonic resection as well as history of internal and external hemorrhoids?79-year-old male presented to the hospital with recurrent bright red blood per rectum. He was concerned given the amount however he did not develop any significant anemia, his hemoglobin dropped after liter fluid to 12.6, and on recheck on the day of discharge it was 13.1. The admitting physician had discussed the case with GI who did not feel that the patient warranted any significant inpatient evaluation. I discussed the case with the patient as well as his son and expressed the possibility of discharge today they both expressed understanding of the risks and benefits of going home and are okay with going home if he is stable which she is. I was able to get him an appointment with GI on 08/02/2024 and recommend outpatient follow-up with his PCP to monitor his hemoglobin. He did just have a colonoscopy on 07/18/2024 with 2 segmented polyps as well as multiple nonbleeding colonic AVMs. 2. Alcohol abuse?his recently and since that time he has been drinking fairly heavily however the son says that he has gotten rid of all the alcohol in the house, CIWA scores here in the hospital been 0. I continue to encourage alcohol cessation. 3. CKD 3, COPD, CAD status post stent, prostate cancer s/p radiation currently on hormonal therapy, chronic BPH with obstruction, history of colon cancer are chronic medical conditions which complicate his care. His home medications were continued where appropriate Physical Exam Narrative General: Alert, Oriented x3, Cooperative, No apparent distress HEENT: Atraumatic, PERRLA, EOMI, Normocephalic Oral: Moist Mucosa Neck: Supple, No JVD Lungs: Diminished, Normal air movement, No rhonchi, No wheeze, No rales Cardiovascular: Regular rate, Regular Rhythm, Normal S1, Normal S2, No murmurs Abdomen: Soft, Non Tender, Non-Distended, No Hepato-splenomegaly Extremities: No edema, Capillary Refill Less than 3 Seconds Skin: No rashes, No breakdown Musculoskeletal: No Tenderness to Palpation of Joints or Extremities Neurological: No focal neurological deficits, Motor Exam 5/5 strength throughout, Sensory exam intact to light touch and pain Psych/Mental Status: Normal Affect, Appropriate Weight / BMI Weight Weight: 133 lb 2.547 oz Body Mass Index (BMI) 20.8 ABG / Lab / Microbiology Data 07/28/24 12:20 07/28/24 06:18 Laboratory: Laboratory Results - last 24 hr 07/27/24 13:28: Lactic Acid 4.8 H* 07/27/24 17:25: Sodium 143, Potassium 3.8, Chloride 107, Carbon Dioxide 17.7 L, Anion Gap 18 H, BUN 3 L, Creatinine 1.31 H, Estim Creat Clear Calc 38.36 L, Est GFR (MDRD) Non-Af 55 L, BUN/Creatinine Ratio 2.2 L, Glucose 54 L, Calcium 8.5 07/27/24 19:05: Lactic Acid 1.9 07/27/24 22:02: POC Glucose 139 H 07/28/24 06:06: POC Glucose 94 07/28/24 06:18: WBC 7.7, RBC 3.86 L, Hgb 12.6 L, Hct 35.9 L, MCV 93.0, MCH 32.6 H, MCHC 35.1, RDW Std Deviation 42.3, RDW Coeff of Kylee 12.4, Plt Count 323, MPV 9.9, Immature Gran % (Auto) 0.400, Neut % (Auto) 70.4 H, Lymph % (Auto) 12.7 L, Camp % (Auto) 8.7, Eos % (Auto) 6.6 H, Baso % (Auto) 1.2 H, Absolute Neuts (auto) 5.4, Absolute Lymphs (auto) 0.98, Nucleated RBC % 0, PT 14.2, INR 1.1, Sodium 141, Potassium 3.5, Chloride 106, Carbon Dioxide 23.3, Anion Gap 12, BUN 19, Creatinine 1.19, Estim Creat Clear Calc 42.30 L, Est GFR (MDRD) Non-Af 62, BUN/Creatinine Ratio 15.5, Glucose 89, Calcium 9.3, Magnesium 1.7, Total Bilirubin 0.73, AST 28, ALT 15, Alkaline Phosphatase 65, Total Protein 5.7 L, Albumin 3.9, Globulin 1.8 L, Albumin/Globulin Ratio 2.2, TSH 2.440 07/28/24 12:07: POC Glucose 129 H 07/28/24 12:20: Hgb 13.1, Hct 37.9 L Microbiology: Microbiology 07/27/24 10:12 Stool Stool Occult Blood (WINTER) - Final Occult Blood Positive ABG: ABG 07/27/24 07/27/24 17:36 20:23 Specimen Type STEPHANIE ART Sample Site vein L Radial pH 7.45 Bicarbonate Actual 22.4 Total CO2 23 Base Excess -2 O2 Saturation 94 L O2 % 21.0 ABG pCO2 32.4 L ABG pO2 68 L Mario Test Positive VBG pH 7.50 H VBG pO2 31 VBG HCO3 22 VBG Total CO2 23 VBG O2 Sat (Calc) 67 VBG Base Excess -2 L POC Mix VBG pCO2 Pt Tmp 28.1 L O2 Delivery Device Not entered Room Air Vent Mode Not entered Clinical Comments D/C Instructions Discharge Diet: Low fat / Low cholesterol Call your doctor if you observe: Fever of 101 or Higher, Shortness of breath, Dizziness, Fainting spells, Swelling in the ankles, Chest pain and Increased palpitations (irregular heartbeat) DC O2, CPAP, BIPAP Needs Home O2 Discharge instructions: No Meaningful Use Info Meaningful Use Meaningful Use Diagnoses (Choose all that apply): None applicable Ischemic Stroke Statin Dosing Therapy Reference: STATIN DOSE THERAPY REFERENCE: * Patients > 75 years receive moderate or high dose statin therapy. * Patients 75 years or YOUNGER should receive HIGH intensity statin dose unless contraindicated. You will be required to document reason for non-treatment if statin daily dose does not meet guidelines. HIGH DOSE STATIN THERAPY DAILY Atorvastatin > than or = to 40 mg Rosuvastatin > than or = to 20 mg Amlodipine + Atorvastatin > than or = to 2.5/40 mg Ezetimibe + Simvastatin 10/80 mg Simvastatin 80mg Discharge Plan Admission Admit Date/Time: 07/27/24 16:08 Attending Provider: Rhys Fontana Primary Care Provider: Jeremiah Mckeon Consulting Providers: Tiki Saldivar Discharge Orders/Prescriptions Prescriptions: Continued nitroglycerin 0.4 mg Tablet, Sublingual 0.4 mg sublingual Q5M PRN (Reason: Cardiac/Chest Pain) Qty: 20 0RF (DME) Disability Placard See Rx Instructions .ROUTE .MEDSUPPLY Qty: 1 0RF Rx Instructions: [id number] formoterol fumarate [Perforomist] 20 mcg/2 mL solution for nebulization 2 ml inhalation Q12H Qty: 120 11RF isosorbide mononitrate 30 mg tablet extended release 24 hr 30 mg PO DAILY Qty: 30 11RF furosemide 40 mg tablet 40 mg PO DAILY PRN (Reason: edema) Qty: 30 6RF clopidogrel 75 mg tablet 75 mg PO DAILY Qty: 90 3RF verapamil 240 mg tablet extended release 240 mg PO QHS Qty: 90 3RF tamsulosin 0.4 mg capsule 0.4 mg PO BID Qty: 180 1RF Rx Instructions: take one tab PO bid budesonide 0.5 mg/2 mL suspension for nebulization 0.5 mg inhalation Q12H Qty: 180 11RF Referrals / Follow Up: Marian Rodriguez PA [Med Staff - Adv Practice Prof] - 08/02/24 10:00 am Jeremiah Mckeon, [employer] [Primary Care Provider] - Within 1 Week Disposition Disposition (needs filled in before D/C Order can be placed): Home, Self Care Charges/Coding Visit Charges Inpatient E&M: 63691 Disch Hosp >30min
[2024-07-28 14:51] VITALS: BP 151/90; PULSE 102; RESP 16; TEMP 36.8; O2SAT 93
== END 2024-07-28 12:59 | disposition home or self-care (01) ==
LOC: ED 16:07 → PCU 16:27
PROVIDERS: Admitting Provider Internal Medicine; Emergency Provider Surgery; PCP Nurse Practitioner Family; Visit Provider Family Medicine
DX: E86.0 Dehydration (principal); J43.9 Emphysema, unspecified; C61 Malignant neoplasm of prostate; N18.31 Chronic kidney disease, stage 3a; R74.02 Elevation of levels of lactic acid dehydrogenase [LDH]; K92.1 Melena; I25.10 Atherosclerotic heart disease of native coronary artery without angina pectoris; K44.9 Diaphragmatic hernia without obstruction or gangrene; M79.89 Other specified soft tissue disorders; E87.6 Hypokalemia; R19.7 Diarrhea, unspecified; N40.1 Benign prostatic hyperplasia with lower urinary tract symptoms; N13.8 Other obstructive and reflux uropathy; F10.129 Alcohol abuse with intoxication, unspecified; Y90.6 Blood alcohol level of 120-199 mg/100 ml; I12.9 Hypertensive chronic kidney disease with stage 1 through stage 4 chronic kidney disease, or unspecified chronic kidney disease; E78.5 Hyperlipidemia, unspecified; I25.2 Old myocardial infarction; Z79.02 Long term (current) use of antithrombotics/antiplatelets; Z79.899 Other long term (current) drug therapy; Z92.3 Personal history of irradiation; Z87.891 Personal history of nicotine dependence; Z85.038 Personal history of other malignant neoplasm of large intestine; Z90.49 Acquired absence of other specified parts of digestive tract
CPT/HCPCS: 36415; 36600; 74177; 80048; 80053; 81001; 82077; 82274; 82803; 82962; 83605; 83690; 83735; 84443; 85014; 85018; 85025; 85610; 94640; 94668; 96360; 96361; 97802; 99221; 99285; Q9967; A4216; G0378

== ENCOUNTER → 2024-08-02 | Outpatient (CLI) | payer MEDICARE, OTHER, SELFPAY ==
[2024-02-28 10:04] VITALS: BMI 24.3
[2024-08-02 12:00] LABS: Absolute Lymphocyte Count 0.92 X10^3/uL (0.83-4.51); Absolute Neutrophil Count 4.7 X10^3/uL (2.0-7.7); Basophil# 0.07 X10^3/uL; Eosinophil# 0.64 X10^3/uL; Eosinophils% 9.4 % (0-5); Hematocrit 37.9 % (40-54); Hemoglobin 12.7 g/dL (13.0-16.5); Lymphocyte # 0.92 X10^3/ul (0.83-4.51); Lymphocyte % 13.5 % (19-41); Mean Corp Hgb Conc 33.5 g/dL (32-36); Mean Corpuscular Hgb 32.1 pg (27.0-32.0); Mean Corpuscular Volume 95.7 fL (80-94); Mean Platelet Vol. 10.3 fl (6.2-12.0); Monocyte# 0.47 X10^3/uL; Monocyte% 6.9 % (0-10); NRBC Flagged by Analyzer 0 % (0-5); Neutrophil # 4.73 X10^3/uL (2.7-7.7); Neutrophil % 69.1 % (47-70); Platelet Count 315 K/mm3 (150-450); RBC Distribution Width CV 12.5 % (11.6-14.6); RBC Distribution Width SD 43.5 fl (35.1-43.9); Red Blood Count 3.96 M/mm3 (4.6-6.2); White Blood Count 6.8 K/mm3 (4.4-11.0)
== END | disposition home or self-care (01) ==
LOC: LAB 10:46
PROVIDERS: PCP Nurse Practitioner Family; Referring Provider Nurse Practitioner Acute Care; Visit Provider Nurse Practitioner Acute Care
DX: D64.9 Anemia, unspecified (principal)
CPT/HCPCS: 36415; 85025

== ENCOUNTER → 2024-08-03 | Outpatient (CLI) | payer MEDICARE, OTHER, SELFPAY ==
[2024-02-28 10:04] VITALS: BMI 24.3
[2024-08-03 19:51] LABS: ALB/GLOB Ratio 2.1 RATIO (0.9-2.4); AST(SGOT) 24 U/L (<=37); Alanine Aminotransfer ALT/SGPT 21 U/L (<=46); Albumin, Serum 4.1 g/dL (3.4-4.8); Alkaline Phosphatase 65 U/L (40-129); Anion Gap 11 (5-15); BUN 15 mg/dL (4-19); BUN/Creat Ratio 11.4 RATIO (10-20); Calcium,Total 9.8 mg/dL (7.6-11.0); Carbon Dioxide 24.5 mmol/L (21.0-32.0); Chloride 106 mmol/L (98-108); Creatinine, Serum 1.31 mg/dL (0.70-1.20); EST Glomerular Filtration Rate 55 (>60); Globulin 1.9 g/dL (2.2-4.2); Glucose 103 mg/dL (70-99); Potassium 4.1 mmol/L (3.3-5.1); Sodium Level 141 mmol/L (133-145); Total Bilirubin 0.52 mg/dL (0.00-1.30)
== END | disposition home or self-care (01) ==
LOC: VSLAB 11:39
PROVIDERS: PCP Nurse Practitioner Family
DX: E87.20 Acidosis, unspecified (principal)
CPT/HCPCS: 36415; 80053

== ENCOUNTER 2024-08-09 16:26 | Inpatient (IN) | payer MEDICARE, OTHER, SELFPAY ==
[2024-02-28 10:04] VITALS: BMI 24.3
[2024-08-09 16:28] VITALS: BP 162/95; PULSE 77; RESP 14; TEMP 36.6; O2SAT 97; BMI 20.4
[2024-08-09 17:09] LABS: Absolute Neutrophil Count 5.9 X10^3/uL (2.0-7.7); Basophil# 0.07 X10^3/uL; Basophil% 0.9 % (0-1); Eosinophil# 0.38 X10^3/uL; Eosinophils% 4.8 % (0-5); Hematocrit 37.9 % (40-54); Hemoglobin 12.9 g/dL (13.0-16.5); Lymphocyte % 11.4 % (19-41); Mean Corpuscular Hgb 32.2 pg (27.0-32.0); Mean Corpuscular Volume 94.5 fL (80-94); Mean Platelet Vol. 10.1 fl (6.2-12.0); Monocyte% 7.6 % (0-10); NRBC Flagged by Analyzer 0 % (0-5); Neutrophil % 74.9 % (47-70); Platelet Count 340 K/mm3 (150-450); RBC Distribution Width CV 12.1 % (11.6-14.6); RBC Distribution Width SD 42.2 fl (35.1-43.9); Red Blood Count 4.01 M/mm3 (4.6-6.2); White Blood Count 7.9 K/mm3 (4.4-11.0)
[2024-08-09 17:28] VITALS: BP 172/87; PULSE 88; RESP 16; O2SAT 97
[2024-08-09 17:39] LABS: International Normalized Ratio 1.1
[2024-08-09 17:40] LABS: Partial Thromboplast Time 26.6 Seconds (24.1-36.2)
[2024-08-09 18:00] VITALS: BP 174/90; PULSE 68; RESP 14; O2SAT 96
[2024-08-09 18:07] LABS: Anion Gap 12 (5-15); BUN 24 mg/dL (4-19); BUN/Creat Ratio 16.9 RATIO (10-20); Calcium,Total 9.8 mg/dL (7.6-11.0); Carbon Dioxide 21.6 mmol/L (21.0-32.0); Chloride 103 mmol/L (98-108); Creatinine, Serum 1.44 mg/dL (0.70-1.20); EST Glomerular Filtration Rate 49 (>60); Estimated Creatinine Clearance 34.23 ml/min (50-250); Glucose 106 mg/dL (70-99); Potassium 3.6 mmol/L (3.3-5.1); Sodium Level 136 mmol/L (133-145)
[2024-08-09 18:09] VITALS: BP 174/90; PULSE 68; RESP 14; TEMP 36.6; O2SAT 96
--- NOTE | 2024-08-09 18:25 | EDS_ITS ---
HPI HPI - GI History of Present Illness Chief Complaint: GI Bleed Informant: patient Narrative Narrative: Recurrent bright red blood per rectum for last 5 days. 4-5 a day noting clots. He is on Plavix no other antiplatelets or anticoagulants. No abdominal pain. On and off symptoms for the past few months. He is seeing GI Dr. Friend had a colonoscopy July 18 reporting to me told his colon was fried from radiation therapy. History of prostate cancer he states last radiation 6 to 8 months ago. He states there were lesions that had discussion of cauterization however states had not gone back in. He states sometimes he did have bright red blood per rectum daily sometimes every other day however the frequency has increased over the last few days. No lightheaded symptoms. He left 2 messages with GI office and did not get a call back. Prior similar symptoms: Yes PFSH PFS Medical History GI bleed Marijuana use Prostate disease Shortness of breath on exertion Preoperative evaluation to rule out surgical contraindication Asthmatic bronchitis with exacerbation Nocturia Malignant neoplasm of colon, unspecified Heart disease Emphysema, unspecified Anxiety Frequency of micturition Chronic kidney disease, stage 3b Trigger finger Prostate CA Partial bowel obstruction Complete small bowel obstruction Elevated PSA Therapeutic drug monitoring Wears glasses Arthritis Easy bruising Excessive bleeding Back pain On home oxygen therapy Asthma Anemia Cancer Alcohol abuse Kidney stones Former smoker AAA (abdominal aortic aneurysm) Myocardial infarct Coronary artery disease Low back pain Epistaxis Sinus bradycardia Left inguinal hernia Essential (primary) hypertension Hyperlipidemia Atherosclerotic heart disease of marshall coronary artery without 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) History of ST elevation myocardial infarction (STEMI) (05/27/07) Insomnia Iron deficiency Abdominal aortic aneurysm (AAA) greater than 5.5 cm in diameter in male Hypoxia Bronchiectasis Allergy to dog dander Short bowel syndrome BPH (benign prostatic hyperplasia) Personal history of other malignant neoplasm of rectum, rectosigmoid junction, and anus Tachycardia 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 classification History of colon cancer COPD (chronic obstructive pulmonary disease) Home Medications ?Medication ?Instructions ?Recorded ?Last Taken ?Type Disability Placard #1 ea 02/11/23 Unknown Rx formoterol fumarate 20 mcg/2 mL 2 ml inhalation Q12H c opd #120 mL 05/06/23 08/08/24 Rx solution for nebulization (Perforomist) isosorbide mononitrate 30 mg 30 mg PO DAILY heart #30 TABLETS 12/10/23 08/08/24 Rx tablet,extended release 24 hr furosemide 40 mg tablet 40 mg PO DAILY PRN edema #30 tabs 12/13/23 Unknown Rx clopidogrel 75 mg tablet 75 mg PO DAILY anti platelet #90 02/10/24 08/08/24 Rx tabs verapamil 240 mg tablet,extended 240 mg PO QHS heart # 90 tabs 05/05/24 08/08/24 Rx release tamsulosin 0.4 mg capsule 0.4 mg PO BID prostate #180 caps 05/22/24 08/09/24 Rx budesonide 0.5 mg/2 mL suspension 0.5 mg (2 mL) inhala tion Q12H 06/14/24 08/08/24 Rx for nebulization breathing #180 mL hydrocortisone acetate 25 mg 25 mg WI QHS proctitis #1 2 ea 08/02/24 08/08/24 Rx rectal suppository (Anusol-HC) Allergy/AdvReac Type Severity Reaction Status Date / Time aspirin Allergy Shortness Verified 08/09/24 16:30 of breath adhesive AdvReac Rash Verified 08/09/24 16:30 amoxicillin trihydrate (From AdvReac Other Verified 08/09/24 16:30 Augmentin) atorvastatin calcium (From AdvReac leg cramps Verified 08/09/24 16:30 Lipitor) isopropyl alcohol AdvReac Rash Verified 08/09/24 16:30 metoprolol succinate (From AdvReac Rash Verified 08/09/24 16:30 Toprol XL) naproxen (From Naprosyn) AdvReac Shortness Verified 08/09/24 16:30 of breath paroxetine HCl (From Paxil) AdvReac Unknown Verified 08/09/24 16:30 potassium clavulanate (From AdvReac tingling Verified 08/09/24 16:30 Augmentin) all over propoxyphene HCl (From AdvReac Unknown Verified 08/09/24 16:30 Darvon) sertraline HCl (From Zoloft) AdvReac Unknown Verified 08/09/24 16:30 simvastatin (From Zocor) AdvReac Unknown Verified 08/09/24 16:30 tiotropium bromide (From AdvReac Other Verified 08/09/24 16:30 Spiriva with HandiHaler) Family History Father Heart disease Hypertension High cholesterol CVA (cerebral vascular accident) Mother Dementia Surgical History History of coronary artery stent placement H/O hernia repair History of left inguinal hernia repair (06/2021) Hx of thumb surgery History of esophagogastroduodenoscopy (EGD) Hx of colonoscopy Hx of sinus surgery History of endovascular stent graft for abdominal aortic aneurysm (AAA) (06/25/20) History of left heart catheterization (05/24/20) History of coronary artery stent placement (11/27/22) Hx of umbilical hernia repair Hx of appendectomy History of tonsillectomy and adenoidectomy Hx of bilateral cataract extraction Status post laparoscopic colectomy history of right eye surgery History of right inguinal hernia repair History of tonsillectomy Social History Smoking Status: Former smoker pack-years: 67 second hand exposure: No alcohol intake: former details: Previous nightly drinker. Stopped 2021 substance use type: marijuana caffeine: Yes Type: coffee Number of servings: 4 what type of physical activity do you participate in: weight training and other details: pulmonary rehab frequency: 3-4 times per week additional social history: Has had blood transfusion [facility] ED Constitutional Constitutional ED: Denies chills, fever(s) or sweats ENT ENT ED: Denies sore throat Cardiovascular Cardiovascular: Denies chest pain, leg edema, palpitations or racing heartbeat Respiratory/Chest Respiratory/Chest: Denies cough, dyspnea or dyspnea on exertion Gastrointestinal Gastrointestinal: Reports other Details: Bright red blood per rectum ; Denies abdominal pain, diarrhea, nausea or vomiting Genitourinary Genitourinary ED: Denies dysuria, hematuria or urinary frequency Musculoskeletal Musculoskeletal: Denies back pain, extremity pain or neck pain Integumentary Denies rash or wounds Neurologic Neurologic: Denies headache(s), paresthesias or weakness EXAM Physical Exam Const Vital Signs: 08/09/24 16:28 08/09/24 17:28 Temperature 98 F Temperature Source Oral Pulse Rate 77 88 Respiratory Rate 14 16 Blood Pressure 162/95 H 172/87 H Blood Pressure Mean 117 115 Pulse Ox 97 97 Oxygen Delivery Method Room Air Room Air Positive well nourished and well developed General Appearance ED: well developed and NAD; Negative for pallor HEENT Reports moist mucous membranes normocephalic and atraumatic Eyes General Eye ED: Yes normal appearance of both eyes; Negative for pale conjunctiva Neck full ROM Chest Wall Chest: Negative for tenderness Resp normal respiratory effort and normal air movement Effort and Inspection: symmetric chest movement; Negative for respiratory distress Cardio regular rate, regular rhythm and no murmurs Peripheral Pulses: pulses 2+ throughout GI normal to inspection, nondistended, normoactive bowel sounds and non-tender Palpation: Negative for guarding or rebound tenderness present Extremity normal to inspection General Extremety ED: Negative for edema or tenderness General Extremity: Negative for edema Neuro oriented x3 and no sensory deficits noted Sensorium / Orientation: awake and alert Skin no rashes or lesions noted and no wounds General Skin Exam: Negative for pallor MDM MDM MDM Narrative Medical decision making narrative: Interventions / MDM: Differential diagnosis: Bright red blood per rectum, colonic angiodysplasias Diagnosis considered but do not suspect: N/A My EKG interpretation: N/A Imaging independently reviewed and interpreted by myself: N/A External documents reviewed: Colonoscopy report from July 18, 2024 2 polypectomies, multiple large areas of angiodysplasias nonbleeding per report. Test considered but not ordered:N/A ED course: Vital stable nontoxic no clinical pallor. Labs were checked for evaluation. Hemoglobin 12.9. Reviewing records colonoscopy multiple large nonbleeding angiodysplasia likely source of rebleed. I discussed with GI DrNeville Gonzáles, would like admission to medicine with bowel prep. He will likely plan recolonoscopy with intervention as needed. [place] score is 14. I discussed with hospitalist Dr. Fontana for admission to the medical floor. Re-evaluation: stable Disposition discussed with patient/family/significant other: Patient Case discussed with consulting clinician: N/A This note was generated with Currensee dictation software. It may contain incorrect words, spelling, and punctuation that were not noted in checking the note before signing. Lab Data Attestation: I reviewed the patient's lab results. Labs: Laboratory Results - last 24 hr 08/09/24 17:00 WBC 7.9 RBC 4.01 L Hgb 12.9 L Hct 37.9 L MCV 94.5 H MCH 32.2 H MCHC 34.0 RDW Std Deviation 42.2 RDW Coeff of Kylee 12.1 Plt Count 340 MPV 10.1 Immature Gran % (Auto) 0.400 Neut % (Auto) 74.9 H Lymph % (Auto) 11.4 L Walton % (Auto) 7.6 Eos % (Auto) 4.8 Baso % (Auto) 0.9 Absolute Neuts (auto) 5.9 Absolute Lymphs (auto) 0.90 Nucleated RBC % 0 PT 14.0 INR 1.1 APTT 26.6 Sodium 136 Potassium 3.6 Chloride 103 Carbon Dioxide 21.6 Anion Gap 12 BUN 24 H Creatinine 1.44 H Estim Creat Clear Calc 34.23 L Est GFR (MDRD) Non-Af 49 L BUN/Creatinine Ratio 16.9 Glucose 106 H Calcium 9.8 Blood Type O POSITIVE Antibody Screen NEGATIVE Discharge Plan Dx/Rx/DC Orders Clinical Impression: Rectal bleeding, Angiodysplasia of colon Disposition Disposition: Acute Care Hospital [facility] Discharge Date/Time: 08/09/24 18:54
--- NOTE | 2024-08-09 19:03 | HP.PCM.HOS_ITS ---
[facility] - General General Date of Admission: 08/09/24 HPI Narrative BETTE ASTORGA, is a 79 M who presents to the hospital with chronic GI bleed. He presented today because he was having recurrence of his lower GI bleeding. He has a history of AVMs as well as hemorrhoids and was admitted at the end of July with this issue. Hemoglobin had stabilized at that point so he was discharged home with outpatient follow-up with GI. They evaluated him and his hemoglobin at that time was 12.7 which was on 08/02/2024. Around that visit he says that his bleeding had essentially resolved and then 2 nights ago he noticed bright red blood again per his rectum. No lightheadedness or dizziness, and no increased pallor. Denies any abdominal pain. Because he was having increased frequency of bowel movements he took Imodium so yesterday he had no bleeding however this morning he had significant clot burden with his bowel movement and therefore presented to the hospital. Hemoglobin today is 12.9, and he is hemodynamically very stable. We discussed likelihood that these are AVMs and that they will be a chronic burden and will likely never resolve however the ED physician did discuss the case with gastroenterology who recommended admission for colonoscopy tomorrow. [facility] Medical History (Updated 08/09/24 @ 18:[address] Viral Gutiérrez DO) GI bleed Marijuana use Prostate disease Shortness of breath on exertion Preoperative evaluation to rule out surgical contraindication Asthmatic bronchitis with exacerbation Nocturia Malignant neoplasm of colon, unspecified Heart disease Emphysema, unspecified Anxiety Frequency of micturition Chronic kidney disease, stage 3b Trigger finger Prostate CA Partial bowel obstruction Complete small bowel obstruction Elevated PSA Therapeutic drug monitoring Wears glasses Arthritis Easy bruising Excessive bleeding Back pain On home oxygen therapy Asthma Anemia Cancer Alcohol abuse Kidney stones Former smoker AAA (abdominal aortic aneurysm) Myocardial infarct Coronary artery disease Low back pain Epistaxis Sinus bradycardia Left inguinal hernia Essential (primary) hypertension Hyperlipidemia Atherosclerotic heart disease of [place] coronary artery without 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) History of ST elevation myocardial infarction (STEMI) (05/27/07) Insomnia Iron deficiency Abdominal aortic aneurysm (AAA) greater than 5.5 cm in diameter in male Hypoxia Bronchiectasis Allergy to dog dander Short bowel syndrome BPH (benign prostatic hyperplasia) Personal history of other malignant neoplasm of rectum, rectosigmoid junction, and anus Tachycardia 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 classification History of colon cancer COPD (chronic obstructive pulmonary disease) Home Medications ?Medication ?Instructions ?Recorded ?Last Taken ?Type Disability Placard #1 ea 02/11/23 Unknown Rx formoterol fumarate 20 mcg/2 mL 2 ml inhalation Q12H c opd #120 mL 05/06/23 08/08/24 Rx solution for nebulization (Perforomist) isosorbide mononitrate 30 mg 30 mg PO DAILY heart #30 TABLETS 12/10/23 08/08/24 Rx tablet,extended release 24 hr furosemide 40 mg tablet 40 mg PO DAILY PRN edema #30 tabs 12/13/23 Unknown Rx clopidogrel 75 mg tablet 75 mg PO DAILY anti platelet #90 02/10/24 08/08/24 Rx tabs verapamil 240 mg tablet,extended 240 mg PO QHS heart # 90 tabs 05/05/24 08/08/24 Rx release tamsulosin 0.4 mg capsule 0.4 mg PO BID prostate #180 caps 05/22/24 08/09/24 Rx budesonide 0.5 mg/2 mL suspension 0.5 mg (2 mL) inhala tion Q12H 06/14/24 08/08/24 Rx for nebulization breathing #180 mL hydrocortisone acetate 25 mg 25 mg CA QHS proctitis #1 2 ea 08/02/24 08/08/24 Rx rectal suppository (Anusol-HC) Allergy/AdvReac Type Severity Reaction Status Date / Time aspirin Allergy Shortness Verified 08/09/24 16:30 of breath adhesive AdvReac Rash Verified 08/09/24 16:30 amoxicillin trihydrate (From AdvReac Other Verified 08/09/24 16:30 Augmentin) atorvastatin calcium (From AdvReac leg cramps Verified 08/09/24 16:30 Lipitor) isopropyl alcohol AdvReac Rash Verified 08/09/24 16:30 metoprolol succinate (From AdvReac Rash Verified 08/09/24 16:30 Toprol XL) naproxen (From Naprosyn) AdvReac Shortness Verified 08/09/24 16:30 of breath paroxetine HCl (From Paxil) AdvReac Unknown Verified 08/09/24 16:30 potassium clavulanate (From AdvReac tingling Verified 08/09/24 16:30 Augmentin) all over propoxyphene HCl (From AdvReac Unknown Verified 08/09/24 16:30 Darvon) sertraline HCl (From Zoloft) AdvReac Unknown Verified 08/09/24 16:30 simvastatin (From Zocor) AdvReac Unknown Verified 08/09/24 16:30 tiotropium bromide (From AdvReac Other Verified 08/09/24 16:30 Spiriva with HandiHaler) Family History Father Heart disease Hypertension High cholesterol CVA (cerebral vascular accident) Mother Dementia Surgical History History of coronary artery stent placement H/O hernia repair History of left inguinal hernia repair (06/2021) Hx of thumb surgery History of esophagogastroduodenoscopy (EGD) Hx of colonoscopy Hx of sinus surgery History of endovascular stent graft for abdominal aortic aneurysm (AAA) (06/25/20) History of left heart catheterization (05/24/20) History of coronary artery stent placement (11/27/22) Hx of umbilical hernia repair Hx of appendectomy History of tonsillectomy and adenoidectomy Hx of bilateral cataract extraction Status post laparoscopic colectomy history of right eye surgery History of right inguinal hernia repair History of tonsillectomy Social History Smoking Status: Former smoker pack-years: 67 second hand exposure: No alcohol intake: former details: Previous nightly drinker. Stopped 2021 substance use type: marijuana caffeine: Yes Type: coffee Number of servings: 4 what type of physical activity do you participate in: weight training and other details: pulmonary rehab frequency: 3-4 times per week additional social history: Has had blood transfusion ROS Constitutional Constitutional: Denies chills, fatigue, fever(s) or malaise Eyes Eyes: Denies blurry vision ENT HEENT: Denies headache(s) or nasal discharge Cardiovascular Cardiovascular: Denies chest pain, dyspnea on exertion or syncope Respiratory/Chest Respiratory/Chest: Denies cough, shortness of breath at rest or shortness of breath with exertion Gastrointestinal Gastrointestinal: Reports hematochezia; Denies constipation, diarrhea, nausea or vomiting Genitourinary Genitourinary: Denies dysuria Neurologic Neurologic: Denies focal weakness, numbness or tremor(s) Psychiatric Psychiatric: Denies anxiety or depression Vital Signs Vital Signs Vital Signs: 08/09/24 16:28 08/09/24 17:28 08/09/24 18:00 Temperature 98 F Temperature Source Oral Pulse Rate 77 88 68 Respiratory Rate 14 16 14 Blood Pressure 162/95 H 172/87 H 174/90 H Blood Pressure Mean 117 115 118 Pulse Ox 97 97 96 Oxygen Delivery Method Room Air Room Air Room Air 08/09/24 18:09 Temperature 98 F Temperature Source Pulse Rate 68 Respiratory Rate 14 Blood Pressure 174/90 H Blood Pressure Mean 118 Pulse Ox 96 Oxygen Delivery Method Weight Weight: 130 lb 6.4 oz Body Mass Index (BMI) 20.4 Physical Exam Narrative General: Alert, Oriented x3, Cooperative, No apparent distress HEENT: Atraumatic, PERRLA, EOMI, Normocephalic Oral: Moist Mucosa Neck: Supple, No JVD Lungs: Diminished, Normal air movement, No rhonchi, No wheeze, No rales Cardiovascular: Regular rate, Regular Rhythm, Normal S1, Normal S2, No murmurs Abdomen: Soft, Non Tender, Non-Distended, No Hepato-splenomegaly Extremities: No edema, Capillary Refill Less than 3 Seconds Skin: No rashes, No breakdown Musculoskeletal: No Tenderness to Palpation of Joints or Extremities Neurological: No focal neurological deficits, Motor Exam 5/5 strength throughout, Sensory exam intact to light touch and pain Psych/Mental Status: Normal Affect, Appropriate Results Lab / Micro Data 08/09/24 17:00 08/09/24 17:00 Labs: Laboratory Results - last 24 hr 08/09/24 17:00: WBC 7.9, RBC 4.01 L, Hgb 12.9 L, Hct 37.9 L, MCV 94.5 H, MCH 32.2 H, MCHC 34.0, RDW Std Deviation 42.2, RDW Coeff of Kyle[place] 12.1, Plt Count 340, MPV 10.1, Immature Gran % (Auto) 0.400, Neut % (Auto) 74.9 H, Lymph % (Auto) 11.4 L, [place] % (Auto) 7.6, Eos % (Auto) 4.8, Baso % (Auto) 0.9, Absolute Neuts (auto) 5.9, Absolute Lymphs (auto) 0.90, Nucleated RBC % 0, PT 14.0, INR 1.1, APTT 26.6, Sodium 136, Potassium 3.6, Chloride 103, Carbon Dioxide 21.6, Anion Gap 12, BUN 24 H, Creatinine 1.44 H, Estim Creat Clear Calc 34.23 L, Est GFR (MDRD) Non-Af 49 L, BUN/Creatinine Ratio 16.9, Glucose 106 H, Calcium 9.8, Blood Type O POSITIVE, Antibody Screen NEGATIVE Assessment & Plan Assessment/Plan (1) Angiodysplasia of colon: PLAN: Plan 1. Angiodysplasia of his colon with chronic lower GI bleeding ? Repeat hemoglobin in the morning ? Continue with prep for possible colonoscopy tomorrow ? Will hold his Plavix ? This is complicated by the fact that he has had radiation for prostate cancer and has some history of radiation proctitis he also has a history of internal/external hemorrhoids. 2. CAD status post stents/essential HTN ? Will have to discuss the continuation of Plavix and antiplatelets on discharge, does appear his stents were in 2022 ? Continue with his home blood pressure medication ? Will monitor make adjustments as necessary 3. BPH ? Stable ? Continue with Flomax DVT: SCDs 60 minutes was spent on direct patient care, including documentation as well as chart review and collaboration with colleagues Charges/Coding Visit Charges Inpatient E&M: 86416 Init Hosp L2
[2024-08-09 19:50] VITALS: BP 179/101; PULSE 80; RESP 18; TEMP 36.6; O2SAT 96; BMI 21.0
--- NOTE | 2024-08-09 20:34 | CON.PCM.GI_ITS ---
HPI Consult Data Date of Consult: 08/09/24 HPI Narrative Reason for Consultation: GI bleed HPI Narrative: BETTE ASTORGA, is a 79 M who presents with recurrent bright red blood per rectum for last 5 days. Patient complains of 4-5 a day noting clots. He is on Plavix no other antiplatelets or anticoagulants. He denies any abdominal pain. He says that his symptoms are on and off symptoms for the past few months. He had a colonoscopy July 18 and a display radiation proctitis. He has a history of prostate cancer he states last radiation 6 to 8 months ago. He states sometimes he did have bright red blood per rectum daily sometimes every other day however the frequency has increased over the last few days. No lightheaded symptoms. [facility] History GI bleed Marijuana use Prostate disease Shortness of breath on exertion Preoperative evaluation to rule out surgical contraindication Asthmatic bronchitis with exacerbation Nocturia Malignant neoplasm of colon, unspecified Heart disease Emphysema, unspecified Anxiety Frequency of micturition Chronic kidney disease, stage 3b Trigger finger Prostate CA Partial bowel obstruction Complete small bowel obstruction Elevated PSA Therapeutic drug monitoring Wears glasses Arthritis Easy bruising Excessive bleeding Back pain On home oxygen therapy Asthma Anemia Cancer Alcohol abuse Kidney stones Former smoker AAA (abdominal aortic aneurysm) Myocardial infarct Coronary artery disease Low back pain Epistaxis Sinus bradycardia Left inguinal hernia Essential (primary) hypertension Hyperlipidemia Atherosclerotic heart disease of [place] coronary artery without 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) History of ST elevation myocardial infarction (STEMI) (05/27/07) Insomnia Iron deficiency Abdominal aortic aneurysm (AAA) greater than 5.5 cm in diameter in male Hypoxia Bronchiectasis Allergy to dog dander Short bowel syndrome BPH (benign prostatic hyperplasia) Personal history of other malignant neoplasm of rectum, rectosigmoid junction, and anus Tachycardia 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 classification History of colon cancer COPD (chronic obstructive pulmonary disease) Home Medications ?Medication ?Instructions ?Recorded ?Last Taken ?Type Disability Placard #1 ea 02/11/23 Unknown Rx formoterol fumarate 20 mcg/2 mL 2 ml inhalation Q12H c opd #120 mL 05/06/23 08/08/24 Rx solution for nebulization (Perforomist) isosorbide mononitrate 30 mg 30 mg PO DAILY heart #30 TABLETS 12/10/23 08/08/24 Rx tablet,extended release 24 hr furosemide 40 mg tablet 40 mg PO DAILY PRN edema #30 tabs 12/13/23 Unknown Rx clopidogrel 75 mg tablet 75 mg PO DAILY anti platelet #90 02/10/24 08/08/24 Rx tabs verapamil 240 mg tablet,extended 240 mg PO QHS heart # 90 tabs 05/05/24 08/08/24 Rx release tamsulosin 0.4 mg capsule 0.4 mg PO BID prostate #180 caps 05/22/24 08/09/24 Rx budesonide 0.5 mg/2 mL suspension 0.5 mg (2 mL) inhala tion Q12H 06/14/24 08/08/24 Rx for nebulization breathing #180 mL hydrocortisone acetate 25 mg 25 mg ID QHS proctitis #1 2 ea 08/02/24 08/08/24 Rx rectal suppository (Anusol-HC) Allergy/AdvReac Type Severity Reaction Status Date / Time aspirin Allergy Shortness Verified 08/09/24 16:30 of breath adhesive AdvReac Rash Verified 08/09/24 16:30 amoxicillin trihydrate (From AdvReac Other Verified 08/09/24 16:30 Augmentin) atorvastatin calcium (From AdvReac leg cramps Verified 08/09/24 16:30 Lipitor) isopropyl alcohol AdvReac Rash Verified 08/09/24 16:30 metoprolol succinate (From AdvReac Rash Verified 08/09/24 16:30 Toprol XL) naproxen (From Naprosyn) AdvReac Shortness Verified 08/09/24 16:30 of breath paroxetine HCl (From Paxil) AdvReac Unknown Verified 08/09/24 16:30 potassium clavulanate (From AdvReac tingling Verified 08/09/24 16:30 Augmentin) all over propoxyphene HCl (From AdvReac Unknown Verified 08/09/24 16:30 Darvon) sertraline HCl (From Zoloft) AdvReac Unknown Verified 08/09/24 16:30 simvastatin (From Zocor) AdvReac Unknown Verified 08/09/24 16:30 tiotropium bromide (From AdvReac Other Verified 08/09/24 16:30 Spiriva with HandiHaler) Family History Father Heart disease Hypertension High cholesterol CVA (cerebral vascular accident) Mother Dementia Surgical History History of coronary artery stent placement H/O hernia repair History of left inguinal hernia repair (06/2021) Hx of thumb surgery History of esophagogastroduodenoscopy (EGD) Hx of colonoscopy Hx of sinus surgery History of endovascular stent graft for abdominal aortic aneurysm (AAA) (06/25/20) History of left heart catheterization (05/24/20) History of coronary artery stent placement (11/27/22) Hx of umbilical hernia repair Hx of appendectomy History of tonsillectomy and adenoidectomy Hx of bilateral cataract extraction Status post laparoscopic colectomy history of right eye surgery History of right inguinal hernia repair History of tonsillectomy Social History Smoking Status: Former smoker pack-years: 67 second hand exposure: No alcohol intake: former details: Previous nightly drinker. Stopped 2021 substance use type: marijuana caffeine: Yes Type: coffee Number of servings: 4 what type of physical activity do you participate in: weight training and other details: pulmonary rehab frequency: 3-4 times per week additional social history: Has had blood transfusion ROS Constitutional Constitutional: Denies fatigue, fever(s), poor appetite, weight gain or weight loss Gastrointestinal Gastrointestinal: Denies belching, bloating, change in bowel habits, change in stool character, chewing difficulty, coffee ground emesis, constipation, cramping, diarrhea, dyspepsia, dysphagia, early satiety, excessive flatus, fecal incontinence, heartburn, hematemesis, hematochezia, hemorrhoids, loose stools, melena, nausea, odynophagia, rectal bleeding, tenesmus, vomiting or weight changes Physical Exam Narrative General: Alert, Oriented x3, Cooperative, No apparent distress HEENT: Atraumatic, PERRLA, EOMI, Normocephalic Oral: Moist Mucosa Neck: Supple, No JVD Lungs: Diminished, Normal air movement, No rhonchi, No wheeze, No rales Cardiovascular: Regular rate, Regular Rhythm, Normal S1, Normal S2, No murmurs Abdomen: Soft, Non Tender, Non-Distended, No Hepato-splenomegaly Extremities: No edema, Capillary Refill Less than 3 Seconds Skin: No rashes, No breakdown Musculoskeletal: No Tenderness to Palpation of Joints or Extremities Neurological: No focal neurological deficits, Motor Exam 5/5 strength throughout, Sensory exam intact to light touch and pain Psych/Mental Status: Normal Affect, Appropriate Lab / Micro Data 08/09/24 17:00 08/09/24 17:00 Labs: Laboratory Results - last 24 hr 08/09/24 17:00: WBC 7.9, RBC 4.01 L, Hgb 12.9 L, Hct 37.9 L, MCV 94.5 H, MCH 32.2 H, MCHC 34.0, RDW Std Deviation 42.2, RDW Coeff of Kylee 12.1, Plt Count 340, MPV 10.1, Immature Gran % (Auto) 0.400, Neut % (Auto) 74.9 H, Lymph % (Auto) 11.4 L, [place] % (Auto) 7.6, Eos % (Auto) 4.8, Baso % (Auto) 0.9, Absolute Neuts (auto) 5.9, Absolute Lymphs (auto) 0.90, Nucleated RBC % 0, PT 14.0, INR 1.1, APTT 26.6, Sodium 136, Potassium 3.6, Chloride 103, Carbon Dioxide 21.6, Anion Gap 12, BUN 24 H, Creatinine 1.44 H, Estim Creat Clear Calc 34.23 L, Est GFR (MDRD) Non-Af 49 L, BUN/Creatinine Ratio 16.9, Glucose 106 H, Calcium 9.8, Blood Type O POSITIVE, Antibody Screen NEGATIVE Assessment & Plan Assessment/Plan (1) Personal history of other malignant neoplasm of large intestine: (2) Rectal bleeding: PLAN: Assessment and Plan Assessment and Plan (1) Rectal bleeding: Status: Acute (2) Personal history of other malignant neoplasm of large intestine: Status: Acute (3) Abdominal pain: Status: Acute Qualifiers: Abdominal location: generalized Qualified Code(s): R10.84 - Generalized abdominal pain Orders: Orders CBC W/Diff, Automated Today K62.5 - Hemorrhage of anus and rectum Colonoscopy Today Medications: New h g Plan 79-year-old with lower GI bleeding. His PMH is significant for CAD, MIx2, cardiac stent x9 on plavix, moderate COPD with bronchiectasis complicated by chronic hypoxic respiratory failure, CKD3b, prostate CA, colon CA (2007). He complaints of BRBPR with BM for the past 6-8 weeks. The plan will be for colonoscopy tomorrow with treatment of angiodysplastic lesions. During his last colonoscopy he was not clean and had a lot of stool in his rectum. This did not allow for total treatment of his rectum. Charges/Coding Visit Charges Inpatient E&M: 39151 Init Hosp L3
[2024-08-09] MEDS: Bisacodyl 5 MG Tablet 20 MG PO (20:40)
[2024-08-09] MEDS: Tamsulosin HCl 0.4 MG Capsule PO (20:40)
[2024-08-09] MEDS: Hydrocortisone 25 MG Suppository RC (20:42)
[2024-08-09] MEDS: Verapamil SR 240 MG Tablet PO (20:42)
[2024-08-09 22:40] VITALS: BP 151/88; PULSE 79; RESP 16; TEMP 36.9; O2SAT 96
[2024-08-09] MEDS: Polyethylene Glycol 3350 BOWEL PREP PO (22:42)
[2024-08-10] VITALS (13 sets, daily range): BP systolic 114–155; BP diastolic 59–88; PULSE 70–98; RESP 16–20; TEMP 36.2–36.8; O2SAT 94–98
[2024-08-10] MEDS: Fluticasone 0.05% 1 SPRAY NASAL.SRY NASAL ×2 (02:18→21:09)
[2024-08-10 04:58] LABS: Absolute Lymphocyte Count 0.66 X10^3/uL (0.83-4.51); Absolute Neutrophil Count 6.5 X10^3/uL (2.0-7.7); Basophil# 0.08 X10^3/uL; Eosinophil# 0.36 X10^3/uL; Eosinophils% 4.4 % (0-5); Hematocrit 34.4 % (40-54); Hemoglobin 11.7 g/dL (13.0-16.5); Lymphocyte # 0.66 X10^3/ul (0.83-4.51); Lymphocyte % 8.1 % (19-41); Mean Platelet Vol. 10.4 fl (6.2-12.0); Monocyte# 0.56 X10^3/uL; Monocyte% 6.8 % (0-10); NRBC Flagged by Analyzer 0 % (0-5); Neutrophil % 79.5 % (47-70); Platelet Count 330 K/mm3 (150-450); RBC Distribution Width CV 12.1 % (11.6-14.6); Red Blood Count 3.66 M/mm3 (4.6-6.2); White Blood Count 8.2 K/mm3 (4.4-11.0)
[2024-08-10 06:13] LABS: Anion Gap 14 (5-15); BUN 20 mg/dL (4-19); Calcium,Total 9.7 mg/dL (7.6-11.0); Carbon Dioxide 19.5 mmol/L (21.0-32.0); Chloride 107 mmol/L (98-108); Creatinine, Serum 1.27 mg/dL (0.70-1.20); EST Glomerular Filtration Rate 57 (>60); Estimated Creatinine Clearance 39.96 ml/min (50-250); Glucose 119 mg/dL (70-99); Potassium 3.5 mmol/L (3.3-5.1); Sodium Level 140 mmol/L (133-145)
[2024-08-10] MEDS: Budesonide Respules 0.5 MG/2 ML AMPUL.NEB. INHALATION ×2 (07:00→19:55)
--- NOTE | 2024-08-10 07:42 | EKG12_ITS ---
Test Reason : PRE OP Blood Pressure : */* mmHG Vent. Rate : 87 BPM Atrial Rate : 87 BPM P-R Int : 160 ms QRS Dur : 82 ms QT Int : 364 ms P-R-T Axes : 75 -38 49 degrees QTcB Int : 438 ms Normal sinus rhythm Left axis deviation Septal infarct (cited on or before 01-Nov-2022) Abnormal ECG When compared with ECG of 18-Jul-2024 12:30, Questionable change in initial forces of Septal leads Confirmed by TRACY RODRIGUEZ, ANGELES ([id number]), editor managing director CHELSEA HASSAN ([id number]) on 08/10/2024 12:49:04 PM Referred By: Confirmed By: ANGELES MOLINA MD
[2024-08-10] MEDS: 0.9% Saline Lock 10 ML Syringe IV (13:59)
--- NOTE | 2024-08-10 14:07 | PCM.PRE.AN2 ---
ASA Classification* ASA Classification ASA Classification: 3 Assessment & Plan Anesthesia* Anesthesia Assessment Anesthesia Assessment: Discussed sedation and/or anesthesia options, risks, benefits, and alternatives with patient/parents/legal guardian/POA. Questions invited. The patient/parents/legal guardian/POA seems to understand and agrees to proceed with anesthesia plan. Reviewed the physical assessment, medical history, allergy history and patient home medications list prior to surgery/procedure/anesthetic and documented any changes. Performed airway and anesthesia risk assessments. Anesthesia Type Anesthesia Type: MAC History Source History Obtained from:: Patient and Chart Anesthesia Focused Assessment* Temperature: 97.5 F Pulse Rate: 70 Blood Pressure: 145/86 Respiratory Rate: 16 Pulse Ox: 97 Oxygen Delivery Method: Room Air Oxygen Flow Rate (L/min): 3 Airway Assessment Mouth opens: >3 cm Mallampati Score: IV Teeth Condition: Chipped/Broken (Patient has several broken teeth. They are all tight.) Neck Range of motion (ROM): Full ROM Focused Labs Anesthesia Preop lab: CBC WBC 8.2 K/mm3 (4.4-11.0) 08/10/24 04:02 08/10/24 RBC 3.66 M/mm3 (4.6-6.2) L 08/10/24 04:02 08/10/24 Hgb 11.7 g/dL (13.0-16.5) L 08/10/24 04:02 08/10/24 Hct 34.4 % (40-54) L 08/10/24 04:02 08/10/24 Plt Count 330 K/mm3 (150-450) 08/10/24 04:02 08/10/24 CHEMISTRY Potassium 3.5 mmol/L (3.3-5.1) 08/10/24 04:02 08/10/24 Sodium 140 mmol/L (133-145) 08/10/24 04:02 08/10/24 Magnesium 1.7 mg/dL (1.5-2.2) 07/28/24 06:18 07/28/24 Phosphorus 3.1 mg/dL (2.5-4.9) 11/16/22 03:00 11/16/22 BUN 20 mg/dL (4-19) H 08/10/24 04:02 08/10/24 Creatinine 1.27 mg/dL (0.70-1.20) H 08/10/24 04:02 08/10/24 Glucose 119 mg/dL (70-99) H 08/10/24 04:02 08/10/24 POC Glucose 129 mg/dL (74-106) H 07/28/24 12:07 07/28/24 TSH 2.440 uIU/mL (0.300-4.200) 07/28/24 06:18 07/28/24 COAG PT 14.0 SECONDS (11.7-14.9) 08/09/24 17:00 08/09/24 Pre-Assessment Diagnosis/Proposed Procedure Planned Operative Procedure(s): Colonoscopy with control of bleeding. 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 When Was Last Pacemaker Check QUESTION #4 FULL TEXT: You/Your Family Experience fever (hyperthermia) with Anesthesia Last Oral Intake Last Oral intake: Last Oral Intake NPO since Meds taken in AM with sips of water? Meds patient instructed to take am of surgery Any additional information?: Yes NPO since: 02:00 (Patient finished his prep at 2 AM.) Meds taken in AM with sips of water?: No PONV PONV - school clerk: PONV - school clerk Female HX of Motion Sickness HX of N/V After Surgery Non-Smoker Duration of Surgery greater than 60 minutes Number of Risk Factors PONV Score Height & Weight Height & Weight: Anesthesia: Height & Weight Height 5 ft 7 in 08/10/24 13:17 Weight: 60.9 kg 08/10/24 13:17 Body Mass Index (BMI) 21.0 08/09/24 19:50 Respiratory Assessment Respiratory Assessment - school clerk: Respiratory Tract Infection Hx - school clerk Hx Respiratory Tract Infection No 08/10/24 02:22 STOP Sleep Apnea STOP Sleep Apnea - school clerk: STOP Sleep Apnea - school clerk Hx Hypertension Yes 08/09/24 19:50 Hx Sleep Apnea Yes: 3L O2 AT NIGHT 08/09/24 19:50 CPAP No 08/09/24 19:50 BIPAP No 08/09/24 19:50 Do you snore loudly (louder than talking or can be heard Do you often feel tired/ fatigued/ sleepy during daytime? Has anyone observed you stop breathing during sleep? STOP Results Positive 08/09/24 19:50 QUESTION #5 FULL TEXT : Do you snore loudly (louder than talking or can be heard through closed doors)? 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 Specify any problems Hx of Preganancy in last 3 N/A 08/09/24 19:50 Months Nurse Filling Out Transfusion FSTEINER 08/09/24 19:50 & Questions: Date: 08/09/24 08/09/24 19:50 Time: 19:52 08/09/24 19:50 Patient unable to answer at this time (ie. confused, unrespo /Reproduction History /Reproductive History - school clerk: /Reproductive Hx- school clerk Hx Now No 08/10/24 02:22 Gestational Age (in weeks): EDC: Hx Hx Para Hx Section SAB No 08/10/24 02:22 Active Medications Active Medications: Current Medications Generic Name Dose Route Start Last Admin Trade Name Freq PRN Reason Stop Dose Admin Albuterol Sulfate 2.5 mg 08/10/24 02:02 Albuterol 2.5 Mg/3 Ml Vial.Neb. INHALATION Q2H PRN PRN Asthma Budesonide 0.5 mg 08/09/24 19:57 08/10/24 07:00 Budesonide Respules 0.5 Mg/2 Ml Ampul.Neb. INHALATION 0.5 mg BID.RT RAJ Administration Fluticasone Propionate 1 spray 08/10/24 02:02 08/10/24 02:18 Fluticasone 0.05% 1 [place] Nasal.Sry NASAL 1 spray BID PRN PRN Administration CONGESTION Furosemide 40 mg 08/09/24 19:57 Furosemide 40 Mg Tablet PO DAILY PRN edema Protocol Hydrocortisone Acetate 25 mg 08/09/24 22:00 08/09/24 20:42 Hydrocortisone 25 Mg Suppository RC 25 mg QHS RAJ Administration Sodium Chloride 100 mls @ 15 mls/hr 08/09/24 20:02 IV .Q6H40M PRN Saline Flush Sodium Chloride 100 mls @ 15 mls/hr 08/09/24 20:02 IV .Q6H40M PRN Additional IVPB Infusion Isosorbide Mononitrate 30 mg 08/10/24 10:00 Isosorbide Mononitrate 30 Mg Tablet PO DAILY [facility] Protocol Sodium Chloride 10 - 40 ml 08/09/24 20:02 08/10/24 13:59 0.9% Saline Lock 10 Ml Syringe IV 10 ml UD PRN Administration SALINE FLUSH Tamsulosin HCl 0.4 mg 08/09/24 22:00 08/10/24 09:59 Tamsulosin Hcl 0.4 Mg Capsule PO Not Given BID [facility] Verapamil HCl 240 mg 08/09/24 22:00 08/09/24 20:42 Verapamil Sr 240 Mg Tablet PO 240 mg QHS RAJ Administration Protocol [facility] Medical History GI bleed Marijuana use Prostate disease Shortness of breath on exertion Preoperative evaluation to rule out surgical contraindication Asthmatic bronchitis with exacerbation Nocturia Malignant neoplasm of colon, unspecified Heart disease Emphysema, unspecified Anxiety Frequency of micturition Chronic kidney disease, stage 3b Trigger finger Prostate CA Partial bowel obstruction Complete small bowel obstruction Elevated PSA Therapeutic drug monitoring Wears glasses Arthritis Easy bruising Excessive bleeding Back pain On home oxygen therapy Asthma Anemia Cancer Alcohol abuse Kidney stones Former smoker AAA (abdominal aortic aneurysm) Myocardial infarct Coronary artery disease Low back pain Epistaxis Sinus bradycardia Left inguinal hernia Essential (primary) hypertension Hyperlipidemia Atherosclerotic heart disease of [place] coronary artery without 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) History of ST elevation myocardial infarction (STEMI) (05/27/07) Insomnia Iron deficiency Abdominal aortic aneurysm (AAA) greater than 5.5 cm in diameter in male Hypoxia Bronchiectasis Allergy to dog dander Short bowel syndrome BPH (benign prostatic hyperplasia) Personal history of other malignant neoplasm of rectum, rectosigmoid junction, and anus Tachycardia 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 classification History of colon cancer COPD (chronic obstructive pulmonary disease) Home Medications ?Medication ?Instructions ?Recorded ?Last Taken ?Type Disability Placard #1 ea 02/11/23 Unknown Rx formoterol fumarate 20 mcg/2 mL 2 ml inhalation Q12H copd #120 mL 05/06/23 08/08/24 Rx solution for nebulization (Perforomist) isosorbide mononitrate 30 mg 30 mg PO DAILY heart #30 TABLETS 12/10/23 08/08/24 Rx tablet,extended release 24 hr furosemide 40 mg tablet 40 mg PO DAILY PRN edema #30 tabs 12/13/23 Unknown Rx clopidogrel 75 mg tablet 75 mg PO DAILY anti platelet #90 02/10/24 08/08/24 Rx tabs verapamil 240 mg tablet,extended 240 mg PO QHS heart #90 tabs 05/05/24 08/08/24 Rx release tamsulosin 0.4 mg capsule 0.4 mg PO BID prostate #180 caps 05/22/24 08/09/24 Rx budesonide 0.5 mg/2 mL suspension 0.5 mg (2 mL) inhalation Q12H 06/14/24 08/08/24 Rx for nebulization breathing #180 mL hydrocortisone acetate 25 mg 25 mg SD QHS proctitis #12 ea 08/02/24 08/08/24 Rx rectal suppository (Anusol-HC) Allergy/AdvReac Type Severity Reaction Status Date / Time aspirin Allergy Shortness Verified 08/09/24 16:30 of breath adhesive AdvReac Rash Verified 08/09/24 16:30 amoxicillin trihydrate (From AdvReac Other Verified 08/09/24 16:30 Augmentin) atorvastatin calcium (From AdvReac leg cramps Verified 08/09/24 16:30 Lipitor) isopropyl alcohol AdvReac Rash Verified 08/09/24 16:30 metoprolol succinate (From AdvReac Rash Verified 08/09/24 16:30 Toprol XL) naproxen (From Naprosyn) AdvReac Shortness Verified 08/09/24 16:30 of breath paroxetine HCl (From Paxil) AdvReac Unknown Verified 08/09/24 16:30 potassium clavulanate (From AdvReac tingling Verified 08/09/24 16:30 Augmentin) all over propoxyphene HCl (From AdvReac Unknown Verified 08/09/24 16:30 Darvon) sertraline HCl (From Zoloft) AdvReac Unknown Verified 08/09/24 16:30 simvastatin (From Zocor) AdvReac Unknown Verified 08/09/24 16:30 tiotropium bromide (From AdvReac Other Verified 08/09/24 16:30 Spiriva with HandiHaler) Family History Father Heart disease Hypertension High cholesterol CVA (cerebral vascular accident) Mother Dementia Surgical History History of coronary artery stent placement H/O hernia repair History of left inguinal hernia repair (06/2021) Hx of thumb surgery History of esophagogastroduodenoscopy (EGD) Hx of colonoscopy Hx of sinus surgery History of endovascular stent graft for abdominal aortic aneurysm (AAA) (06/25/20) History of left heart catheterization (05/24/20) History of coronary artery stent placement (11/27/22) Hx of umbilical hernia repair Hx of appendectomy History of tonsillectomy and adenoidectomy Hx of bilateral cataract extraction Status post laparoscopic colectomy history of right eye surgery History of right inguinal hernia repair History of tonsillectomy Social History Smoking Status: Former smoker pack-years: 67 second hand exposure: No alcohol intake: former details: Previous nightly drinker. Stopped 2021 substance use type: marijuana caffeine: Yes Type: coffee Number of servings: 4 what type of physical activity do you participate in: weight training and other details: pulmonary rehab frequency: 3-4 times per week additional social history: Has had blood transfusion Review of Systems (Anesthesia) ROS Narrative System reviewed and no additional complaints, except as documented.
--- NOTE | 2024-08-10 14:30 | COLBX_PTH ---
PATIENT: BETTE ASTORGA LOC: MS3 U#:[id number] AGE/SX: 79/M ROOM: [facility] [place] RE08/10/[address]: Dr. Tiki Saldivar MD : 1945 BED: 1 DIS: 08/11/2024 SPEC #: [id number] RECD: 08/11/24 07:53 STATUS: LAUREN PALMA #: [id number] SOLO: 08/10/24 14:[address]: Faraz Gonzáles DEPT: SURGICAL PATHOLOGY RECD BY: Kathleen Espinosa ENTERED: 08/11/24 08:05 SP TYPE: COLON BX OTHR DR: MD Dr. Tiki Torres MD Mark Yoder, SMALL OFFSET PRINTER-C Tissues: A - Transverse colon Procedures: Surgery Specimen Level IV HEADER OPERATION: Colonoscopy, APC, polypectomy PRE-OP DIAGNOSIS: Rectal bleeding, personal history of other malignant neoplasm of large intestine, abdominal pain TISSUE SUBMITTED: A- Transverse polyp MICROSCOPIC DIAGNOSIS A. Transverse colon, polyp, biopsy: * Tubulovillous adenoma, multiple fragments. MICROSCOPIC DESCRIPTION Slides are reviewed. GROSS DESCRIPTION A. Received in formalin in a container labeled with the patient's name, date of , and transverse polyp are multiple padilla-pink fragments of mucosal tissue measuring 1.0 x 0.7 x 0.2 cm in aggregate. Submitted in toto in A1. B 08/20/2024 CPT:02978
--- NOTE | 2024-08-10 14:52 | PCM.PN.BLA ---
Progress Note Patient did have some bleeding with the prep. He received soapsuds enemas. Physical Exam Narrative General: Alert, Oriented x3, Cooperative, No apparent distress HEENT: Atraumatic, PERRLA, EOMI, Normocephalic Oral: Moist Mucosa Neck: Supple, No JVD Lungs: Diminished, Normal air movement, No rhonchi, No wheeze, No rales Cardiovascular: Regular rate, Regular Rhythm, Normal S1, Normal S2, No murmurs Abdomen: Soft, Non Tender, Non-Distended, No Hepato-splenomegaly Extremities: No edema, Capillary Refill Less than 3 Seconds Skin: No rashes, No breakdown Musculoskeletal: No Tenderness to Palpation of Joints or Extremities Neurological: No focal neurological deficits, Motor Exam 5/5 strength throughout, Sensory exam intact to light touch and pain Psych/Mental Status: Normal Affect, Appropriate Assessment & Plan Assessment/Plan (1) Personal history of other malignant neoplasm of large intestine: (2) Rectal bleeding: PLAN: Assessment and Plan Assessment and Plan (1) Rectal bleeding: Status: Acute (2) Personal history of other malignant neoplasm of large intestine: Status: Acute (3) Abdominal pain: Status: Acute Qualifiers: Abdominal location: generalized Qualified Code(s): R10.84 - Generalized abdominal pain Orders: Orders CBC W/Diff, Automated Today K62.5 - Hemorrhage of anus and rectum Colonoscopy Today Medications: New h g Plan 79-year-old with lower GI bleeding. His PMH is significant for CAD, MIx2, cardiac stent x9 on plavix, moderate COPD with bronchiectasis complicated by chronic hypoxic respiratory failure, CKD3b, prostate CA, colon CA (2007). He complaints of BRBPR with BM for the past 6-8 weeks. The plan will be for colonoscopy tomorrow with treatment of angiodysplastic lesions. During his last colonoscopy he was not clean and had a lot of stool in his rectum. This did not allow for total treatment of his rectum. Visit Charges Inpatient E&M: 66622 [facility] L3
--- NOTE | 2024-08-10 15:31 | PCM.POST.ANE ---
Anesthesia: Postop Eval I Current Vital Signs Temperature: 97.2 F Pulse Rate: 81 Blood Pressure: 115/59 Respiratory Rate: 16 Pulse Ox: 96 Oxygen Delivery Method: Room Air Assessment Airway patent: Yes Spontaneous unlabored respirations: Yes Mental status: Awake and Calm nausea: No Vomiting: No Anesthesia Complication: No Fluid Hydration Crystalloid volume administer (ml): 40 Total IV fluid infused: 40 Progress Note Anesthesia document: Postop Eval 1 completed: Yes
--- NOTE | 2024-08-10 15:37 | OP.CCLET_ITS ---
08/10/2024 Jeremiah Mckeon [facility], Machine Stoppage Frequency Checker-c Re : Colonoscopy procedure for Andrey Clements Dear Mike This procedure was performed on August. My impressions and recommendations are as follows: Impressions : - Preparation of the colon was fair. - Multiple bleeding colonic angiodysplastic lesions. Treated with argon plasma coagulation (APC). - Stricture in the recto-sigmoid colon. - One 8 mm polyp in the transverse colon, removed with a hot snare. Resected and retrieved. - Stool in the rectum, in the recto-sigmoid colon, in the sigmoid colon, in the transverse colon and in the cecum. Recommendations : - Return patient to hospital [facility]. - Resume regular diet. - Continue present medications. - Await pathology results. - Repeat colonoscopy is recommended. The colonoscopy date will be determined after pathology results from today's exam become available for review. My findings are described in the full procedure note, which is enclosed. If I can be of further assistance, please feel free to contact me at . Sincerely, Faraz Gonzáles, 08/10/2024 3:36:44 PM This report has been signed electronically.
--- NOTE | 2024-08-10 15:37 | OP.COLON_ITS ---
Patient Name: Andrey Clements Procedure Date: 08/10/2024 2:57 PM Date of : 1945 Age: 79 Procedure: Colonoscopy Indications: Hematochezia Providers: Faraz Gonzáles DO Medicines: Monitored Anesthesia Care Patient Profile: This is an 79 year old male. Refer to note in patient chart for documentation of history and physical. Last Colonoscopy: within the past 3 years. Complications: No immediate complications. Procedure: Pre-Anesthesia Assessment: - Prior to the procedure, a History and Physical was performed, and patient medications and allergies were reviewed. The patient is competent. The risks and benefits of the procedure and the sedation options and risks were discussed with the patient. All questions were answered and informed consent was obtained. Patient identification and proposed procedure were verified by the physician in the pre-procedure area. Mental Status Examination: alert and oriented. Airway Examination: normal oropharyngeal airway and neck mobility. Respiratory Examination: clear to auscultation. CV Examination: normal. Prophylactic Antibiotics: The patient does not require prophylactic antibiotics. Prior Anticoagulants: The patient has taken no anticoagulant or antiplatelet agents except for NSAID medication. ASA Grade Assessment: II - A patient with mild systemic disease. After reviewing the risks and benefits, the patient was deemed in satisfactory condition to undergo the procedure. The anesthesia plan was to use monitored anesthesia care (MAC). Immediately prior to administration of medications, the patient was re-assessed for adequacy to receive sedatives. The heart rate, respiratory rate, oxygen saturations, blood pressure, adequacy of pulmonary ventilation, and response to care were monitored throughout the procedure. The physical status of the patient was re-assessed after the procedure. After I obtained informed consent, the scope was passed under direct vision. Throughout the procedure, the patient's blood pressure, pulse, and oxygen saturations were monitored continuously. The pediatric colonoscope was introduced through the anus and advanced to the cecum, identified by appendiceal orifice and ileocecal valve. The colonoscopy was performed without difficulty. The patient tolerated the procedure well. The quality of the bowel preparation was fair. The ileocecal valve, appendiceal orifice, and rectum were photographed. Scope In: 3:02:19 PM Scope Withdrawal Time 0 hours 13 minutes 39 seconds Scope Out: 3:19:56 PM Total Procedure Duration Time 0 hours 17 minutes 37 seconds Findings: The perianal and digital rectal examinations were normal. Multiple large localized angiodysplastic lesions with bleeding were found in the rectum and in the recto-sigmoid colon. Coagulation for hemostasis using argon plasma at 0.3 liters/minute and 20 earl was successful. Estimated blood loss was minimal. A benign-appearing, intrinsic severe stenosis measuring 4 cm (in length) x 8 mm (inner diameter) was found in the recto-sigmoid colon and was traversed. An 8 mm polyp was found in the transverse colon. The polyp was sessile. The polyp was removed with a hot snare. Resection and retrieval were complete. Verification of patient identification for the specimen was done. Estimated blood loss was minimal. Stool was found in the rectum, in the recto-sigmoid colon, in the sigmoid colon, in the transverse colon and in the cecum. Impression: - Preparation of the colon was fair. - Multiple bleeding colonic angiodysplastic lesions. Treated with argon plasma coagulation (APC). - Stricture in the recto-sigmoid colon. - One 8 mm polyp in the transverse colon, removed with a hot snare. Resected and retrieved. - Stool in the rectum, in the recto-sigmoid colon, in the sigmoid colon, in the transverse colon and in the cecum. Recommendation: - Return patient to hospital weiner. - Resume regular diet. - Continue present medications. - Await pathology results. - Repeat colonoscopy is recommended. The colonoscopy date will be determined after pathology results from today's exam become available for review. Procedure Code(s): --- Professional --- 46104, 59, Colonoscopy, flexible; with control of bleeding, any method 11725, Colonoscopy, flexible; with removal of tumor(s), polyp(s), or other lesion(s) by snare technique CPT copyright 2021 [employer]. All rights reserved. The codes documented in this report are preliminary and upon grades 6 through 8 teacher review may be revised to meet current compliance requirements. Faraz Gonzáles DO 08/10/2024 3:36:44 PM This report has been signed electronically. Number of Addenda: 0 Note Initiated On: 08/10/2024 2:57 PM
--- NOTE | 2024-08-10 15:49 | CHAPLAIN ---
Type of Pastoral Visit ___ Initial Visit ___ Follow-up Visit ___ On-call Visit ___ General Patient Visit ___ Spiritual Assessment ___ Family Conference ___ Bereavement ___ Rapid Response ___ Code Blue ___ Other (describe below) Pastoral Care Referral From ___ Patient ___ Family ___ Nurse ___ Physician ___ Song And Dance Performer ___ Roof Shingler ___ Other (describe below) Sacrament/Intervention ___ Active listening ___ Anointing ___ Caodaism ___ Bereavement ___ Communion ___ Vicky exploration ___ ___ Life review ___ Prayer ___ Reconciliation ___ Sacrament of Sick ___ Supportive presence ___ Wedding ___ Other (describe below) Pastoral Comments patient and bed were out of the room; left a calling card
--- NOTE | 2024-08-10 16:17 | CASEMGMT ---
Met with patient to complete ZAMORA form. ZAMORA form explained to patient who voiced understanding and signed form. Original form placed in pt?s chart and copy provided to patient. Porsha Farnsworth, Discharge Planning Asst
[2024-08-10] MEDS: Tamsulosin HCl 0.4 MG Capsule PO ×2 (16:36→21:10)
--- NOTE | 2024-08-10 16:50 | CASEMGMT ---
TREVOR MORALES NOTE: TREVOR CM to room. Pt resting in bed. Introduced self and role. Pt states he has been up independent in room. He wears O2 @ HS @ 3 L/M & states this was ordered by Dr Kessler. He states he goes to [facility] and sees Monalisa Lyon NP. He purchased a concentrator from [employer] years ago and that is what he uses @ HS. He does not wear O2 during the day. Pt denies having any discharge needs or concerns. Iker CAMERONN TREVOR CM
--- NOTE | 2024-08-10 17:08 | PCM.PN.HOSP ---
Reason for Visit Reason for Visit: Diagnoses Angiodysplasia of colon without hemorrhage (08/09/24) Hemorrhage of anus and rectum (08/09/24) Personal history of other malignant neoplasm of large intestine (08/09/24) Subjective Subjective Patient underwent colonoscopy today which showed multiple bleeding angiodysplastic lesions which were treated with APC and 1 polyp, patient tolerated procedure well, this a.m. prior to procedure patient reported feeling fair overall with no new or acute complaints Objective Data Objective Data Vital Signs: Vital Signs Temp Pulse Resp BP Pulse Ox O2 Del Method O2 Flow Rate 97.8 F 70 16 137/82 H 98 Room Air 3 08/10/24 15:58 08/10/24 15:58 08/10/24 15:58 08/10/24 15:58 08/10/24 15:58 08/10/24 15:58 08/10/24 14:09 Oxygen Flow Rate (L/min) 3 Oxygen Delivery Method Room Air Weight: 60.9 kg Body Mass Index (BMI) 21.0 Intake & Output: Intake and Output for Last 24 Hours 08/08/24 08/09/24 08/10/24 23:59 23:59 23:59 Intake Total 1800 / 1800 Output Total 350 / 350 Balance 1450 / 1450 Medical Nutrition Assessment Dietitian: Malnutrition Criteria Met Start: 08/10/24 13:37 Freq: Status: Active Protocol: Document 08/10/24 13:37 RMA (Rec: 08/10/24 13:37 RMA [id number]) Nutrition Malnutrition Evidence of Yes Malnutrition Exists Malnutrition ( Chronic moderate): Evidenced By Suboptimal Energy Intake (Moderate),Weight Loss ( Moderate) Intake Problem Inadequate Oral Intake Etiology related to altered GI function/bleed Signs/Symptoms as evidenced by NPO Status Active Problem Clinical Problem Acute Disease or Injury Related Malnutrition Etiology moderate protein-calorie malnutrition in the context of chronic disease/debility related to inadequate oral/ energy intake and increased energy expenditure Signs/Symptoms as evidenced by ~10% unintentional weight loss x 1 year and ~5% unintentional weight loss x 2-3 months and Po meeting less than 75% estimated nutrition needs x past 3-6 months Status Active Problem Recommendation Dietitian Recommend advance diet as needed to Transitional s/p Recommendations/ colonoscopy with goal of liberalized regular diet as Changes tolerated. Will add ONS as diet advanced from NPO to support weight gain and repletion of energy/protein. Lab / Micro Data 08/10/24 04:02 08/10/24 04:02 Labs: Laboratory Results - last 24 hr 08/09/24 17:00: WBC 7.9, RBC 4.01 L, Hgb 12.9 L, Hct 37.9 L, MCV 94.5 H, MCH 32.2 H, MCHC 34.0, RDW Std Deviation 42.2, RDW Coeff of Kylee 12.1, Plt Count 340, MPV 10.1, Immature Gran % (Auto) 0.400, Neut % (Auto) 74.9 H, Lymph % (Auto) 11.4 L, Taliaferro % (Auto) 7.6, Eos % (Auto) 4.8, Baso % (Auto) 0.9, Absolute Neuts (auto) 5.9, Absolute Lymphs (auto) 0.90, Nucleated RBC % 0, PT 14.0, INR 1.1, APTT 26.6, Sodium 136, Potassium 3.6, Chloride 103, Carbon Dioxide 21.6, Anion Gap 12, BUN 24 H, Creatinine 1.44 H, Estim Creat Clear Calc 34.23 L, Est GFR (MDRD) Non-Af 49 L, BUN/Creatinine Ratio 16.9, Glucose 106 H, Calcium 9.8, Blood Type O POSITIVE, Antibody Screen NEGATIVE 08/10/24 04:02: WBC 8.2, RBC 3.66 L, Hgb 11.7 L, Hct 34.4 L, MCV 94.0, MCH 32.0, MCHC 34.0, RDW Std Deviation 42.0, RDW Coeff of Kylee 12.1, Plt Count 330, MPV 10.4, Immature Gran % (Auto) 0.200, Neut % (Auto) 79.5 H, Lymph % (Auto) 8.1 L, Taliaferro % (Auto) 6.8, Eos % (Auto) 4.4, Baso % (Auto) 1.0, Absolute Neuts (auto) 6.5, Absolute Lymphs (auto) 0.66 L, Nucleated RBC % 0, Sodium 140, Potassium 3.5, Chloride 107, Carbon Dioxide 19.5 L, Anion Gap 14, BUN 20 H, Creatinine 1.27 H, Estim Creat Clear Calc 39.96 L, Est GFR (MDRD) Non-Af 57 L, BUN/Creatinine Ratio 16.0, Glucose 119 H, Calcium 9.7 Physical Exam Narrative General: Alert, oriented, no apparent distress HEENT: Atraumatic, normocephalic Eyes: Anicteric, normal conjunctiva, extraocular movements grossly intact Neck: Supple Respiratory: Slight increased work of breathing without any overt wheezes or rhonchi Cardiovascular: Regular rate and rhythm GI: Soft, nontender, nondistended Extremities: No edema Musculoskeletal: Moving all extremities Neuro: No overt focal neurological deficits Skin: No rashes appreciated Psych: Cooperative Assessment & Plan Assessment/Plan (1) Angiodysplasia of colon: PLAN: Plan 1. Angiodysplasia of his colon with chronic lower GI bleeding ? Repeat hemoglobin in the morning ? Continue with prep for possible colonoscopy tomorrow ? Will hold his Plavix ? This is complicated by the fact that he has had radiation for prostate cancer and has some history of radiation proctitis he also has a history of internal/external hemorrhoids. -08/10: Patient underwent colonoscopy with multiple bleeding angiodysplastic lesions treated with APC and removal of a polyp, discussed with GI, patient started on Plavix tonight and if doing well can likely DC home tomorrow 2. CAD status post stents/essential HTN ? Will have to discuss the continuation of Plavix and antiplatelets on discharge, does appear his stents were in 2022 ? Continue with his home blood pressure medication ? Will monitor make adjustments as necessary -08/10: Resuming Plavix tonight 3. BPH ? Stable ? Continue with Flomax -08/10: No present concerns DVT: SCDs Time spent in the patient's overall evaluation,decision-making process, review of diagnostic data, adjustment of management, discussion with other providers, nursing nursing and ancillary staff involved in patient's care documentation, 36 Minutes Charges/Coding Visit Charges Inpatient E&M: 82436 Subs Hosp L2
[2024-08-10] MEDS: Clopidogrel Bisulfate 75 MG Tablet PO (18:23)
--- NOTE | 2024-08-10 19:16 | PCM.POSTANE2 ---
Anesthesia Postop Eval I Sum Postop Eval Completion status Anesthesia document: Postop Eval 1 completed: Yes Anesthesia Postop Eval I Summary Anesthesia Postop Eval I Summary: Anesthesia Postop Eval I: Assessment Summary Airway patent Yes 08/10/24 15:32 [email or web address] Spontaneous unlabored Yes 08/10/24 15:32 [email or web address] respirations Mental status Awake,Calm 08/10/24 15:32 [email or web address] nausea No 08/10/24 15:32 [email or web address] Vomiting No 08/10/24 15:32 [email or web address] Anesthesia Postop Eval I: Fluid Summary Crystalloid volume administer 40 08/10/24 15:32 [email or web address] (ml) Colloids volume administered ( ml) Blood Product volume administered (ml) Total IV fluid infused 40 08/10/24 15:32 [email or web address] Anesthesia Postop Eval I: Summary Notes Anesthesia Complication No 08/10/24 15:32 [email or web address] Anesthesia Complication Comment: Post-operative progress note Anesthesia: Postop Eval II Evaluation Mental status: Awake and Calm Pain Level: 0 nausea: No Vomiting: No Complications Anesthesia Complication: No
--- NOTE | 2024-08-10 19:19 | NURSING ---
Patient refused stop positive continuous pulse ox protocol.
[2024-08-10] MEDS: Albuterol 2.5 MG/3 ML VIAL.NEB. INHALATION (19:55)
[2024-08-10] MEDS: Verapamil SR 240 MG Tablet PO (21:10)
[2024-08-10] MEDS: Hydrocortisone 25 MG Suppository RC (21:11)
[2024-08-11 03:06] VITALS: BP 122/76; PULSE 78; RESP 16; TEMP 36.4; O2SAT 96
[2024-08-11] MEDS: Albuterol 2.5 MG/3 ML VIAL.NEB. INHALATION (06:50)
[2024-08-11] MEDS: Budesonide Respules 0.5 MG/2 ML AMPUL.NEB. INHALATION (06:51)
[2024-08-11 06:53] VITALS: PULSE 87; RESP 16
[2024-08-11] MEDS: Isosorbide Mononitrate 30 MG Tablet PO (08:45)
[2024-08-11] MEDS: Clopidogrel Bisulfate 75 MG Tablet PO (08:45)
[2024-08-11] MEDS: Tamsulosin HCl 0.4 MG Capsule PO (08:46)
[2024-08-11 08:50] VITALS: BP 139/73; PULSE 94; RESP 18; TEMP 36.6; O2SAT 97
--- NOTE | 2024-08-11 10:45 | CASEMGMT ---
TREVOR MORALES Assessment: Face to Face with pt for initial transition planning/care coordination assessment. RN ANDREW introduced self and role at [facility], pt voices understanding and consents to assessment. Pt is A&O x4 and answers all questions appropriately at this time. Pt lying in bed on RA in no distress. Care providers, pharmacy, and demographics verified/updated. Admitting Dx: GIB Strata Score: 3 PCP:Jeremiah Mckeon [facility] Specialists:Nasir pulconsuelo; Sabra, uro; Friend, GI Preferred [facility] Benef[facility]: yes LNOK: Rob Clements, son Living Arrangements: Pt lives alone in a single story home with 3 steps to enter with a rail. Pt reports he is I in ADL/IADLs and denies concerns at home. Transportation: Pt drives self and denies concerns with transportation. DME:pox, O2 concentrator HHC/SNF: Denies hx of Pt states no concerns with going home at time of dc. Pt states no further concerns/needs. CM to follow. Advised pt to ask CM if any further questions/concerns/needs arise, voices understanding. Pt Goal: Home Plan: Home Billy MURRAY CM Handoff given to TREVOR MORALES MS3
--- NOTE | 2024-08-11 12:32 | DCINST_ITS ---
Discharge Instructions Diet Discharge Diet: Light diet - advance as tolerated DC O2, CPAP, BIPAP needs Home O2 Discharge instructions: No Dressing / Incision Discharge Activity: - (Increase activity as tolerated) Follow Up Care Test Results: Test results from this visit will be discussed in further detail at your follow- up appointment, if applicable. Discharge Plan Admission Admit Date/Time: 08/10/24 17:09 Primary Reason for Your Visit: Blood in stool Attending Provider: Tiki Saldivar Primary Care Provider: Jeremiah Mckeon [facility] Consulting Providers: Rhys Fontana Instructions Patient Instructions: ED Fall Prevention Additional Instructions / Restrictions: DISCHARGE INSTRUCTIONS PLEASE READ *Please take this with you to your next doctors appointment* -You will need to follow-up with Dr. Gonzáles with GI in his office upon discharge. Please call his office to schedule an appointment (ph. [phone]) -You will need a repeat colonoscopy in the future however the date will be determined based on the results of today's exam, this can be coordinated and further discussed through your GI doctor's office -Please call your primary care provider's office upon discharge to schedule a hospital follow up within 1 week. -For any concerning signs or symptoms please call 911 or proceed to the nearest emergency department Discharge Orders/Prescriptions Prescriptions: Continued Combivent Respimat 20-100 mcg/actuation mist 2 puff INHALATION Q6H PRN (Reason: shortness of breath or wheezing) (DME) Disability Placard See Rx Instructions .ROUTE .MEDSUPPLY Qty: 1 0RF Rx Instructions: [id number]/12/2028 formoterol fumarate [Perforomist] 20 mcg/2 mL solution for nebulization 2 ml inhalation Q12H Qty: 120 11RF isosorbide mononitrate 30 mg tablet extended release 24 hr 30 mg PO DAILY Qty: 30 11RF furosemide 40 mg tablet 40 mg PO DAILY PRN (Reason: edema) Qty: 30 6RF clopidogrel 75 mg tablet 75 mg PO DAILY Qty: 90 3RF verapamil 240 mg tablet extended release 240 mg PO QHS Qty: 90 3RF tamsulosin 0.4 mg capsule 0.4 mg PO BID Qty: 180 1RF Rx Instructions: take one tab PO bid budesonide 0.5 mg/2 mL suspension for nebulization 0.5 mg inhalation Q12H Qty: 180 11RF Referrals / Follow Up: Faraz Gonzáles DO [Med Staff - Active Staff] - ( -You will need to follow-up with Dr. Gonzáles with GI in his office upon discharge. Please call his office to schedule an appointment (ph. [phone])) Jeremiah Mckeon, SALES OPERATIONS ANALYST-C [Primary Care Provider] - In 1 Week Disposition Disposition (needs filled in before D/C Order can be placed): Home, Self Care
--- NOTE | 2024-08-11 12:36 | PCM.DC.SUM ---
Providers Date of Admission: 08/10/24 Date of Discharge: 08/11/24 Primary Care Physician: CODY Burk Consultations 08/09/24 19:57 Consult: Gastroenterology Routine Consulting Provider: Chris G[facility] Reason for Consult: Chronic gi bleed EMERGENT Consult: No MD Notified: Yes Date Notified: 08/09/24 Time Notified: 18:01 Method of Notification: ED Physician Initiated Reason For Visit: GI BLEED Diagnosis Discharge Diagnosis (1) Angiodysplasia of colon: Status: Acute Code(s): K55.20 - Angiodysplasia of colon without hemorrhage Plan 1. Angiodysplasia of his colon with chronic lower GI bleeding 2. CAD status post stents/essential HTN 3. BPH Medications at Discharge Home Medications Disability Placard #1 ea 02/11/23 formoterol fumarate 20 mcg/2 mL solution for nebulization (Perforomist) 2 ml inhalation Q12H copd #120 mL 05/06/23 isosorbide mononitrate 30 mg tablet,extended release 24 hr 30 mg PO DAILY heart #30 TABLETS 12/10/23 furosemide 40 mg tablet 40 mg PO DAILY PRN edema #30 tabs 12/13/23 clopidogrel 75 mg tablet 75 mg PO DAILY anti platelet #90 tabs 02/10/24 verapamil 240 mg tablet,extended release 240 mg PO QHS heart #90 tabs 05/05/24 tamsulosin 0.4 mg capsule 0.4 mg PO BID prostate #180 caps 05/22/24 budesonide 0.5 mg/2 mL suspension for nebulization 0.5 mg (2 mL) inhalation Q12H breathing #180 mL 06/14/24 ipratropium 20 mcg-albuterol 100 mcg/actuation mist for inhalation (Combivent Respimat) 2 puff inhalation Q6H PRN shortness of breath or wheezing 08/11/24 Hospital Course Procedures - (Colonoscopy) Summary of Care Provided Minutes Spent on Discharge: 32 Hospital Course: BETTE ASTORGA, is a 79M with history of coronary artery disease status post PCI on Plavix, prostate cancer status post radiation and current hormonal therapy with Dr. Montaño, previous colon cancer status post colon resection, previous GI bleed presented to [facility] ED/01/25 due to recurrence of lower GI bleeding. Has a history of bleeding due to angioplastic lesions and noted 2 days prior to discharge symptoms that it almost completely resolved began again and he noticed bright red blood per rectum. Patient hemodynamically stable with hemoglobin of 12.9 on presentation however given these repeated episodes ED discussed with gastroenterology who recommended admitting patient for colonoscopy in the a.m. Patient admitted and underwent colonoscopy/03/27 which showed multiple bleeding cholangitic induced blastic lesions treated with laser and an 8 mm polyp in the transverse colon that was removed with a hot snare. Discussed with GI and patient was placed back on Plavix that night, patient the next day denied having any further bleeding and was overall feeling well and wanted to go home. Discharge instructions as followed: -Would recommend lab work (CBC) to check your hemoglobin (blood count) in 2 to 3 days through your primary care physician's office. Please call their office upon discharge to obtain order for lab work. -You will need to follow-up with Dr. Gonzáles with GI in his office upon discharge. Please call his office to schedule an appointment (ph. [phone]) -You will need a repeat colonoscopy in the future however the date will be determined based on the results of today's exam, this can be coordinated and further discussed through your GI doctor's office -Please call your primary care provider's office upon discharge to schedule a hospital follow up within 1 week. -For any concerning signs or symptoms please call 911 or proceed to the nearest emergency department Physical Exam Narrative General: Alert, oriented, no apparent distress HEENT: Atraumatic, normocephalic Eyes: Anicteric, normal conjunctiva, extraocular movements grossly intact Neck: Supple Respiratory: No significant wheezes or rhonchi, no significant increase in respiratory effort Cardiovascular: Regular rate GI: Soft, nontender, nondistended Extremities: No edema Musculoskeletal: Moving all extremities Neuro: No overt focal neurological deficits Skin: No rashes appreciated Psych: Cooperative Medical Records Data Medical Nutrition Assessment Dietitian: Malnutrition Criteria Met Start: 08/10/24 13:37 Freq: Status: Active Protocol: Document 08/10/24 13:37 RMA (Rec: 08/10/24 13:37 RMA [id number]) Nutrition Malnutrition Evidence of Yes Malnutrition Exists Malnutrition ( Chronic moderate): Evidenced By Suboptimal Energy Intake (Moderate),Weight Loss ( Moderate) Intake Problem Inadequate Oral Intake Etiology related to altered GI function/bleed Signs/Symptoms as evidenced by NPO Status Active Problem Clinical Problem Acute Disease or Injury Related Malnutrition Etiology moderate protein-calorie malnutrition in the context of chronic disease/debility related to inadequate oral/ energy intake and increased energy expenditure Signs/Symptoms as evidenced by ~10% unintentional weight loss x 1 year and ~5% unintentional weight loss x 2-3 months and Po meeting less than 75% estimated nutrition needs x past 3-6 months Status Active Problem Recommendation Dietitian Recommend advance diet as needed to Transitional s/p Recommendations/ colonoscopy with goal of liberalized regular diet as Changes tolerated. Will add ONS as diet advanced from NPO to support weight gain and repletion of energy/protein. Weight / BMI Weight Weight: 60.9 kg Body Mass Index (BMI) 21.0 ABG / Lab / Microbiology Data 08/10/24 04:02 08/10/24 04:02 D/C Instructions Discharge Diet: Light diet - advance as tolerated DC O2, CPAP, BIPAP Needs Home O2 Discharge instructions: No Meaningful Use Info Meaningful Use Meaningful Use Diagnoses (Choose all that apply): None applicable Ischemic Stroke Statin Dosing Therapy Reference: STATIN DOSE THERAPY REFERENCE: * Patients > 75 years receive moderate or high dose statin therapy. * Patients 75 years or YOUNGER should receive HIGH intensity statin dose unless contraindicated. You will be required to document reason for non-treatment if statin daily dose does not meet guidelines. HIGH DOSE STATIN THERAPY DAILY Atorvastatin > than or = to 40 mg Rosuvastatin > than or = to 20 mg Amlodipine + Atorvastatin > than or = to 2.5/40 mg Ezetimibe + Simvastatin 10/80 mg Simvastatin 80mg Discharge Plan Admission Admit Date/Time: 08/10/24 17:09 Primary Reason for Your Visit: Blood in stool Attending Provider: Tiki Saldviar Primary Care Provider: Jeremiah Mckeon [facility] Consulting Providers: Rhys Fontana Instructions Patient Instructions: ED Fall Prevention Additional Instructions / Restrictions: DISCHARGE INSTRUCTIONS PLEASE READ *Please take this with you to your next doctors appointment* -Would recommend lab work (CBC) to check your hemoglobin (blood count) in 2 to 3 days through your primary care physician's office. Please call their office upon discharge to obtain order for lab work. -You will need to follow-up with Dr. Gonzáles with GI in his office upon discharge. Please call his office to schedule an appointment (ph. [phone]) -You will need a repeat colonoscopy in the future however the date will be determined based on the results of today's exam, this can be coordinated and further discussed through your GI doctor's office -Please call your primary care provider's office upon discharge to schedule a hospital follow up within 1 week. -For any concerning signs or symptoms please call 911 or proceed to the nearest emergency department Discharge Orders/Prescriptions Prescriptions: Continued Combivent Respimat 20-100 mcg/actuation mist 2 puff INHALATION Q6H PRN (Reason: shortness of breath or wheezing) (DME) Disability Placard See Rx Instructions .ROUTE .MEDSUPPLY Qty: 1 0RF Rx Instructions: [id number]/12/2028 formoterol fumarate [Perforomist] 20 mcg/2 mL solution for nebulization 2 ml inhalation Q12H Qty: 120 11RF isosorbide mononitrate 30 mg tablet extended release 24 hr 30 mg PO DAILY Qty: 30 11RF furosemide 40 mg tablet 40 mg PO DAILY PRN (Reason: edema) Qty: 30 6RF clopidogrel 75 mg tablet 75 mg PO DAILY Qty: 90 3RF verapamil 240 mg tablet extended release 240 mg PO QHS Qty: 90 3RF tamsulosin 0.4 mg capsule 0.4 mg PO BID Qty: 180 1RF Rx Instructions: take one tab PO bid budesonide 0.5 mg/2 mL suspension for nebulization 0.5 mg inhalation Q12H Qty: 180 11RF Referrals / Follow Up: Faraz Gonzáles DO [[facility] Staff - Active Staff] - ( -You will need to follow-up with Dr. Gonzáles with GI in his office upon discharge. Please call his office to schedule an appointment (ph. [phone])) Jeremiah Mckeon, HOME CARE CONSULTANT-C [Primary Care Provider] - In 1 Week Disposition Disposition (needs filled in before D/C Order can be placed): Home, Self Care Charges/Coding Visit Charges Inpatient E&M: 93432 Disch Hosp >30min
--- NOTE | 2024-08-11 12:37 | DCINST_ITS ---
Discharge Instructions Diet Discharge Diet: Light diet - advance as tolerated DC O2, CPAP, BIPAP needs Home O2 Discharge instructions: No Follow Up Care Test Results: Test results from this visit will be discussed in further detail at your follow- up appointment, if applicable. Discharge Plan Admission Admit Date/Time: 08/10/24 17:09 Primary Reason for Your Visit: Blood in stool Attending Provider: Tiki Saldivar Primary Care Provider: Jeremiah Mckeon [facility] Consulting Providers: Rhys Fontana Instructions Patient Instructions: ED Fall Prevention Additional Instructions / Restrictions: DISCHARGE INSTRUCTIONS PLEASE READ *Please take this with you to your next doctors appointment* -Would recommend lab work (CBC) to check your hemoglobin (blood count) in 2 to 3 days through your primary care physician's office. Please call their office upon discharge to obtain order for lab work. -You will need to follow-up with Dr. Gonzáles with GI in his office upon discharge. Please call his office to schedule an appointment (ph. [phone]) -You will need a repeat colonoscopy in the future however the date will be determined based on the results of today's exam, this can be coordinated and further discussed through your GI doctor's office -Please call your primary care provider's office upon discharge to schedule a hospital follow up within 1 week. -For any concerning signs or symptoms please call 911 or proceed to the nearest emergency department Discharge Orders/Prescriptions Prescriptions: Continued Combivent Respimat 20-100 mcg/actuation mist 2 puff INHALATION Q6H PRN (Reason: shortness of breath or wheezing) (DME) Disability Placard See Rx Instructions .ROUTE .MEDSUPPLY Qty: 1 0RF Rx Instructions: [id number]/12/2028 formoterol fumarate [Perforomist] 20 mcg/2 mL solution for nebulization 2 ml inhalation Q12H Qty: 120 11RF isosorbide mononitrate 30 mg tablet extended release 24 hr 30 mg PO DAILY Qty: 30 11RF furosemide 40 mg tablet 40 mg PO DAILY PRN (Reason: edema) Qty: 30 6RF clopidogrel 75 mg tablet 75 mg PO DAILY Qty: 90 3RF verapamil 240 mg tablet extended release 240 mg PO QHS Qty: 90 3RF tamsulosin 0.4 mg capsule 0.4 mg PO BID Qty: 180 1RF Rx Instructions: take one tab PO bid budesonide 0.5 mg/2 mL suspension for nebulization 0.5 mg inhalation Q12H Qty: 180 11RF Referrals / Follow Up: Faraz Gonzáles DO [Med Staff - Active Staff] - ( -You will need to follow-up with Dr. Gonzáles with GI in his office upon discharge. Please call his office to schedule an appointment (ph. [phone])) Jeremiah Mckeon, MARINE STEAM FITTER HELPER-C [Primary Care Provider] - In 1 Week Disposition Disposition (needs filled in before D/C Order can be placed): Home, Self Care
--- NOTE | 2024-08-11 13:45 | PHA.DC.MR.R ---
Pharmacy [place] Med Reconciliation Pharmacy Service has performed discharge medication reconciliation for this patient. The patient's discharge medication list was reviewed for discrepancies and discrepancies were resolved. Medications at Discharge Home Medications Disability Placard #1 ea 02/11/23 formoterol fumarate 20 mcg/2 mL solution for nebulization (Perforomist) 2 ml inhalation Q12H copd #120 mL 05/06/23 isosorbide mononitrate 30 mg tablet,extended release 24 hr 30 mg PO DAILY heart #30 TABLETS 12/10/23 furosemide 40 mg tablet 40 mg PO DAILY PRN edema #30 tabs 12/13/23 clopidogrel 75 mg tablet 75 mg PO DAILY anti platelet #90 tabs 02/10/24 verapamil 240 mg tablet,extended release 240 mg PO QHS heart #90 tabs 05/05/24 tamsulosin 0.4 mg capsule 0.4 mg PO BID prostate #180 caps 05/22/24 budesonide 0.5 mg/2 mL suspension for nebulization 0.5 mg (2 mL) inhalation Q12H breathing #180 mL 06/14/24 ipratropium 20 mcg-albuterol 100 mcg/actuation mist for inhalation (Combivent Respimat) 2 puff inhalation Q6H PRN shortness of breath or wheezing 08/11/24
--- NOTE | 2024-08-11 14:24 | CHAPLAIN ---
Type of Pastoral Visit _x__ Initial Visit ___ Follow-up Visit ___ On-call Visit ___ General Patient Visit ___ Spiritual Assessment ___ Family Conference ___ Bereavement ___ Rapid Response ___ Code Blue ___ Other (describe below) Pastoral Care Referral From _x__ Patient ___ Family ___ Nurse ___ Physician ___ Account Clerk ___ Stucco Laborer ___ Other (describe below) Sacrament/Intervention _x__ Active listening ___ Anointing ___ Scientologist ___ Bereavement ___ Communion ___ Vicky exploration ___ ___ Life review ___ Prayer ___ Reconciliation ___ Sacrament of Sick ___ Supportive presence ___ Wedding ___ Other (describe below) Pastoral Comments patient was just hoping to leave today and stated that he had no concerns or needs; pt says that he has a ride home and will call them as soon as he gets the word on discharge
== END 2024-08-11 12:51 | disposition home or self-care (01) | DRG 378 ==
LOC: ED 17:59 → MS3 18:06
PROVIDERS: Internal Medicine Gastroenterology; Admitting Provider Family Medicine; Emergency Provider Emergency Medicine; PCP Nurse Practitioner Family; Visit Provider Internal Medicine
PROC: 0DJD8ZZ Inspection of Lower Intestinal Tract, Via Natural or Artificial Opening Endoscopic (ICD-10-PCS; CPT 45378; principal; 2024-08-10 14:25)
DX: K55.21 Angiodysplasia of colon with hemorrhage (principal); E44.0 Moderate protein-calorie malnutrition; D68.32 Hemorrhagic disorder due to extrinsic circulating anticoagulants; J96.11 Chronic respiratory failure with hypoxia; N18.32 Chronic kidney disease, stage 3b; J44.9 Chronic obstructive pulmonary disease, unspecified; I12.9 Hypertensive chronic kidney disease with stage 1 through stage 4 chronic kidney disease, or unspecified chronic kidney disease; E78.5 Hyperlipidemia, unspecified; I25.10 Atherosclerotic heart disease of native coronary artery without angina pectoris; K63.5 Polyp of colon; I25.2 Old myocardial infarction; F12.90 Cannabis use, unspecified, uncomplicated; Z87.891 Personal history of nicotine dependence; Z79.02 Long term (current) use of antithrombotics/antiplatelets; N40.0 Benign prostatic hyperplasia without lower urinary tract symptoms; Z79.51 Long term (current) use of inhaled steroids; Z95.5 Presence of coronary angioplasty implant and graft; Z79.891 Long term (current) use of opiate analgesic; Z85.038 Personal history of other malignant neoplasm of large intestine; Z85.46 Personal history of malignant neoplasm of prostate; Z68.21 Body mass index [BMI] 21.0-21.9, adult
CPT/HCPCS: 36415; 80048; 85025; 85610; 85730; 86850; 86900; 86901; 88305; 93005; 94640; 97802; 99285; C1889; A4216; J2405

== ENCOUNTER → 2024-08-31 | Outpatient (CLI) | payer MEDICARE, OTHER, SELFPAY ==
[2024-02-28 10:04] VITALS: BMI 24.3
--- NOTE | 2024-08-31 13:20 | CT_ITS ---
PROCEDURE: CHEST WITHOUT CONTRAST ([facility]), 08/31/2024 REASON FOR EXAM: SPICULATED 7 MM NODULE HIGH RISK PT TECHNIQUE: CT chest was performed without IV contrast. Multiplanar reformats were generated. RADIATION DOSE SUMMARY: CTDlvol: 5.75 mGy DLP: 211.51 mGycm One or more dose reduction techniques were used (e.g., Automated exposure control, adjustment of the mA and/or kV according to patient size, use of iterative reconstruction technique). COMPARISON: 06/06/2024 FINDINGS: Note that evaluation of the vasculature, nya, and soft tissues is limited in the absence of IV contrast. Heart/pericardium: Severe three-vessel coronary atherosclerosis and/or stents. Mild aortic and mitral annular calcification.. Trace pericardial fluid, similar to slightly increased. Aorta: Severe diffuse atherosclerosis. 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 Focal fusiform ectasia of the mid descending thoracic aorta to 3.3 x 3.5 cm. Minimally imaged abdominal aorta demonstrates at least borderline mild aneurysmal dilatation to 3.0 x 2.9 cm, grossly similar to 10/20/2022 where visualized. Pulmonary arteries: Normal in caliber. Lymph nodes: Unremarkable. Lungs/pleura: Severe emphysema with hyperinflation. Biapical pleural/parenchymal scarring. Similar index RIGHT apical nodule measuring 7 x 6 mm (series 4, image 24). Similar irregular 6 x 4 mm superior segment LEFT lower lobe nodule (image 33). Both are probably unchanged from 10/20/2022 allowing for technical differences. Airways: Unremarkable. Chest wall: Atrophic thyroid.. Upper abdomen: Grossly unremarkable. Musculoskeletal: Unremarkable. CT/Chest without Contrast IMPRESSION: 1. Severe emphysema. Nodules up to 7 mm in the RIGHT lung apex are probably un changed from 10/20/2022 allowing for technical differences. 2. 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 Consider CTA for complete visualization/characterization. 3. Additional description as above. Reading Location: [id number]
[2024-08-31 15:33] LABS: PSA,Total- Diagnostic < 0.02 ng/mL (0.00-4.00)
== END | disposition home or self-care (01) ==
PROVIDERS: PCP Nurse Practitioner Family; Referring Provider Nurse Practitioner Acute Care; Visit Provider Nurse Practitioner Acute Care
DX: C61 Malignant neoplasm of prostate (principal); R91.8 Other nonspecific abnormal finding of lung field
CPT/HCPCS: 36415; 71250; 84153

== ENCOUNTER 2025-01-06 16:08 | Emergency (ER) | payer MEDICARE, OTHER, SELFPAY ==
[2024-02-28 10:04] VITALS: BMI 24.3
[2025-01-06 16:09] VITALS: BP 154/85; PULSE 106; RESP 18; TEMP 36.2; O2SAT 98; BMI 21.2
--- OUTSIDE RECORDS SUMMARY | 2025-01-06 17:12 | XMS RPT_ITS | CCD ---
Author Organization [facility] Inform ion Partnership [facility] Care Team Providers Care Biostatistics Manager Name Role Phone Lanny Mccall LPN Unavailable Unavailab Dee Cool Unavailable Unavailable Angie Leigh Unavailable Unavailable Angie Leigh Unavailable Unavailable Juliano Calabrese Primary Care Provider Dr. Spenser Sanchez Primary Care Provider [phone] Dr. Spenser Sanchez Attending Provider [phone] Dr. Spenser Sanchez Referring Provider [phone] Dr. Darryn Kessler Attending Provider Alexis CATALYST RECOVERY OPERATOR, CATALYST RECOVERY OPERATOR-C Cody Salazar Attending Provider Dr. Spenser Sanchez Primary Care Provider [phone] Dr. Spenser Sanchez Attending Provider [phone] Dr. Spenser Sanchez Referring Provider [phone] Alexis CATALYST RECOVERY OPERATOR, CATALYST RECOVERY OPERATOR-C Coyd Salazar Attending Provider Camron CATALYST RECOVERY OPERATOR, CATALYST RECOVERY OPERATOR-C Monalisa Attending Provider Camron CATALYST RECOVERY OPERATOR, CATALYST RECOVERY OPERATOR-C Monalisa Referring Provider Dr. Spenser Sanchez Primary Care Provider [phone] Dr. Spenser Sanchez Attending Provider [phone] Dr. Spenser Sanchez Referring Provider [phone] FLORA Coto Attending Provider Unavailab Dr. Sawyer Stone Attending Provider Dr. Spenser Sanchez Primary Care Provider [phone] Dr. Sawyer Rodríguez Referring Provider Camron CATALYST RECOVERY OPERATOR, CATALYST RECOVERY OPERATOR-C Monalisa Attending Provider [phone] Alexis CATALYST RECOVERY OPERATOR, CATALYST RECOVERY OPERATOR-C Cody Salazar Attending Provider SPENSER SANCHEZ Primary Care Unavailable AREN MCARTHUR Referring Unavailable SPENSER SANCHEZ Primary Care Unavailable AREN MCARTHUR Attending Unavailable Spenser Sanchez MD Primary Care Provider [phone] Laura, Dr. Greenwood Primary Care Provider [phone] Laura, Dr. Greenwood Attending Provider [phone] Dr. Spenser Sanchez Referring Provider [phone] FLORA Coto Attending Provider Unavailab Dr. Sawyer Stone Attending Provider Dr. Sawyer Rodríguez Referring Provider Camron CATALYST RECOVERY OPERATOR, CATALYST RECOVERY OPERATOR-C Monalisa Attending Provider [phone] Alexis CATALYST RECOVERY OPERATOR, CATALYST RECOVERY OPERATOR-C Cody Salazar Attending Provider Dr. Barney Eli Emergency Provider Dr. Robel Figueredo Admit Provider Dr. Robel Figueredo Other Provider Dr. Nick Maguire Attending Provider Dr. Tiki Saldivar Attending Provider Dr. Tiki Saldivar Other Provider Dr. Spenser Sanchez Primary Care Provider [phone] Dr. Spenser Sanchez Referring Provider [phone] Dr. Spenser Sanchez Attending Provider [phone] Dr. Spenser Sanchez Primary Care Provider [phone] 0) Dr. Spenser Sanchez Referring Provider [phone] Dr. Sawyer Rodríguez Attending Provider Dr. Sawyer Rodríguez Referring Provider Laura, Dr. Greenwood Primary Care Provider [phone] [phone] Laura, Dr. Greenwood Attending Provider [phone] Laura, Dr. Greenwood Referring Provider [phone] Dr. Yifan Heard Attending Provider [phone] Dr. Christiano Steinberg Attending Provider [phone] Laura, Dr. Greenwood Primary Care Provider [phone] [phone] Laura, Dr. Greenwood Attending Provider [phone] Oleghdestiny, Dr. Greenwood Referring Provider [phone] Dr. Darryn Kessler Attending Provider Laura, Dr. Greenwood Primary Care Provider [phone] [phone] Dr. Barney Eli Emergency Provider Dr. Robel Figueredo Admit Provider Dr. Robel Figueredo Other Provider Dr. Nick Maguire Attending Provider Dr. Tiki Saldivar Attending Provider Dr. Tiki Saldivar Other Provider Dr. Spenser Sanchez Attending Provider [phone] Laura, Dr. Greenwood Referring Provider [phone])2 Dr. Yifan Heard Attending Provider [phone] Dr. Christiano Steinberg Attending Provider Dr. Darryn Kessler Attending Provider Dr. Rafa Hernandez Emergency Provider Dr. Delma Gonsalves Admit Provider Dr. Delma Gonsalves Referring Provider Dr. Delma Gonsalves Other Provider Dr. Heri Ewing Other Provider Dr. Bethel Gallegos Attending Provider Rosy, Dr. Hugo Other Provider Dr. Good Morse Other Provider Dr. Heri Ewing Attending Provider Dr. Spenser Sanchez Primary Care Provider Dr. Rafa Hernandez Emergency Provider Dr. Delma Gonsalves Admit Provider Dr. Delma Gonsalves Referring Provider Dr. Delma Gonsalves Other Provider Dr. Heri Ewing Other Provider Dr. Bethel Gallegos Attending Provider Rosy, Dr. Hugo Other Provider Dr. Good Morse Other Provider Dr. Heri Ewing Attending Provider Rui HINES, PA Sara Iglesias Attending Provider TOMY Yepez Attending Provider Unavailable Dr. Marshall Briscoe Attending Provider Arturo LEONARD, CODY Reyes Attending Provider Dr. Spenser Sanchez Primary Care Provider [phone] Dr. Spenser Sanchez Referring Provider [phone] Dr. Aren Montaño Referring Provider [phone] Nestor HINES, PA Phi Iglesias Attending Provider Dr. Spenser Sanchez Primary Care Provider [phone] Dr. Spenser Sanchez Referring Provider [phone] Dr. Christiano Steinberg Attending Provider Dr. Marshall Briscoe Attending Provider Dr. Marshall Briscoe Referring Provider Nestor HINES, FLORA Iglesias Attending Provider Dr. Yifan Heard Attending Provider Dr. Spenser Sanchez Attending Provider [phone] Dr. Sawyer Rodríguez Attending Provider Marcos, Dr. Sawyer Craig Referring Provider Dr. Spenser Sanchez Primary Care Provider Dr. Spenser Sanchez Referring Provider [phone] Camron CATALYST RECOVERY OPERATOR, CATALYST RECOVERY OPERATOR-C Monalisa Attending Provider Dr. Spenser Sanchez Primary Care Provider [phone] Dr. Spenser Sanchez Attending Provider [phone] Dr. Spenser Sanchez Referring Provider [phone] Ceceline, Dr. Sawyer Craig Attending Provider Marcos, Dr. Sawyer Craig Referring Provider Camron CATALYST RECOVERY OPERATOR, CATALYST RECOVERY OPERATOR-C Monalisa Attending Provider Dr. Yifan Heard Attending Provider Arturo CATALYST RECOVERY OPERATOR, CATALYST RECOVERY OPERATOR-C Amy Attending Provider Dr. Spenser Sanchez MD Primary Care Provider Laura RODRIGUEZ, Dr. Greenwood Referring Provider Torres CATALYST RECOVERY OPERATOR-CNanette Attending Provider Torres CATALYST RECOVERY OPERATOR-CNanette Referring Provider Gage RODRIGUEZ, Dr. Hurley Attending Provider Gage RODRIGUEZ, Dr. Hurley Emergency Provider Laura RODRIGUEZ, Dr. Greenwood Attending Provider Bruno LEONARD-CTiffanie Attending Provider Dr. Faizan Dotson DO Attending Provider Dr. Faizan Dotson DO Emergency Provider Teri RODRIGUEZ, Dr. Liriano Attending Provider Teri RODRIGUEZ, Dr. Liriano Referring Provider Latoya PA, Tracy Other Provider Latoya PA, Tracy Referring Provider Latoya PA, Tracy Attending Provider Bruno CATALYST RECOVERY OPERATOR-C, Tiffanie Iglesias Referring Provider Mike CATALYST RECOVERY OPERATOR-C, Jeremiah Primary Care Provider Camron CATALYST RECOVERY OPERATOR-C, Monalisa Attending Provider Nivia HOLBROOK, Dr. Ruth Attending Provider Mike CATALYST RECOVERY OPERATOR-C, Jeremiah Referring Provider Nivia HOLBROOK, Dr. Ruth Other Provider Laura RORDIGUEZ, Dr. Greenwood Primary Care Provider Laura RODRIGUEZ, Dr. Greenwood Referring Provider Maryan RODRIGUEZ, Dr. Alvarado Attending Provider Maryan RODRIGUEZ, Dr. Alvarado Referring Provider Torres CATALYST RECOVERY OPERATOR-C, Nanette Attending Provider Torres CATALYST RECOVERY OPERATOR-C, Nanette Referring Provider Dr. Devon Reagan DO Emergency Provider Yariel RODRIGUEZ, Dr. Fairbanks Admit Provider Yariel RODRIGUEZ, Dr. Fairbanks Attending Provider Yariel RODRIGUEZ, Dr. Fairbanks Other Provider Addi RODRIGUEZ, Dr. hRys Bah Attending Provider Addi RODRIGUEZ, Dr. Rhys Bah Other Provider Marylin RODRIGUEZ, Dr. Saha Attending Provider Marylin RODRIGUEZ, Dr. Saha Referring Provider Mustapha CATALYST RECOVERY OPERATOR-C, Addy Attending Provider Marla HOLBROOK, Dr. Stratton Emergency Provider [phone] Addi RODRIGUEZ, Dr. Rhys Bah Admit Provider Laura RODRIGUEZ, Dr. Greenwood Primary Care Provider Marla HOLBROOK, Dr. Stratton Emergency Provider Addi RODRIGUEZ, Dr. Rhys Bah Admit Provider Yariel RODRIGUEZ, Dr. Fairbanks Attending Provider Laura RODRIGUEZ, Dr. Greenwood Primary Care Provider Laura RODRIGUEZ, Dr. Greenwood Referring Provider Bruno CATALYST RECOVERY OPERATOR-C, Tiffanie Iglesias Attending Provider Addi RODRIGUEZ, Dr. Rhys Bah Referring Provider Bruno CATALYST RECOVERY OPERATOR-C, Tiffanie Iglesias Other Provider Camron CATALYST RECOVERY OPERATOR-CMonalisa Referring Provider Sabra RODRIGUEZ, Dr. Aren Madera Other Provider Laura RODRIGUEZ, Dr. Greenwood Referring Provider [facility] [place] Primary Care Unavailable Tiffanie Carr Referring Unavailable Tiffanie Carr Attending Unavailable Oleghe, Efewongbe Primary Care Unavailable Radha Ramirez Attending Unavailable Oleghe, Efewongbe Attending Unavailable Oleghe, Efewongbe Primary Care Unavailable Oleghe, Efewongbe Referring Unavailable Rhys Fontana Attending Unavailable Tiki Saldivar Consulting Unavailable Tiki Saldivar Admitting Unavailable [facility], Jeremiah Primary Care Unavailable Oleghe, Efewongbe Primary Care Unavailable Xavi Almonte Attending Unavailable Oleghe, Efewongbe Primary Care Unavailable Nanette Macdonald Referring Unavailable Nanette Macdonald Attending Unavailable Oleghe, Efewongbe Primary Care Unavailable Aren Montaño Referring Unavailable Aren Montaño Attending Unavailable Klein, Tracy Attending Unavailable Oleghe, Efewongbe Primary Care Unavailable Oleghe, Efewongbe Referring Unavailable Oleghe, Efewongbe Referring Unavailable Oleghe, Efewongbe Primary Care Unavailable Fidelia Tabares Attending Unavailable Klein, Tracy Referring Unavailable Teri, Heri Attending Unavailable Oleghe, Efewongbe Primary Care Unavailable Oleghe, Efewongbe Primary Care Unavailable Js Arnold Attending Unavailable Monalisa Lyon NP Referring Unavailable Mckeon [facility], Jeremiah Primary Care Unavailable Nanette Macdonald Attending Unavailable Nanette Macdonald Referring Unavailable Monalisa Lyon NP Attending Unavailable Oleghe, Efewongbe Referring Unavailable Oleghe, Efewongbe Primary Care Unavailable Oleghe, Efewongbe Attending Unavailable Faizan Dotson Attending Unavailable Oleghe, Efewongbe Primary Care Unavailable Oleghe, Efewongbe Referring Unavailable Oleghe, Efewongbe Primary Care Unavailable Amy Morris NP Attending Unavailable Oleghe, Efewongbe Referring Unavailable Oleghe, Efewongbe Primary Care Unavailable Tiffanie Carr Attending Unavailable Oleghe, Efewongbe Referring Unavailable Mckeon [facility], Jeremiah Primary Care Unavailable Monalisa Lyon NP Attending Unavailable Oleghe, Efewongbe Attending Unavailable Oleghe, Efewongbe Primary Care Unavailable Oleghe, Efewongbe Referring Unavailable Oleghe, Efewongbe Primary Care Unavailable Oleghe, Efewongbe Attending Unavailable Oleghe, Efewongbe Referring Unavailable Oleghe, Efewongbe Referring Unavailable Oleghe, Efewongbe Primary Care Unavailable Oleghe, Efewongbe Attending Unavailable Klein, Tracy Consulting Unavailable Teri, Heri Referring Unavailable [place], Heri Attending Unavailable Oleghe, Efewongbe Primary Care Unavailable Oleghe, Efewongbe Referring Unavailable Oleghe, Efewongbe Primary Care Unavailable Nanette Macdonald Attending Unavailable Oleghe, Efewongbe Referring Unavailable Oleghe, Efewongbe Primary Care Unavailable Monalisa Lyon NP Attending Unavailable Maryan, Christiano Attending Unavailable Maryan, [place] Referring Unavailable Mckeon [facility], Jeremiah Primary Care Unavailable Mckeon [facility], Jeremiah Primary Care Unavailable Friend, Faraz Consulting Unavailable Friend, Faraz Attending Unavailable Mckeon [facility], Jeremiah Referring Unavailable Kotsonis, Rhys F Attending Unavailable Saldivar, Tiki Consulting Unavailable Saldivar, Tiki Admitting Unavailable Mckeon [facility], Jeremiah Primary Care Unavailable Kotsonis, Rhys F Consulting Unavailable Saldivar, Tiki Attending Unavailable Mckeon [facility], Jeremiah Primary Care Unavailable Mckeon [facility], Jeremiah Referring Unavailable Nanette Macdonald Attending Unavailable Mckeon [facility], Jeremiah Referring Unavailable Mckeon [facility], Jeremiah Primary Care Unavailable Camron LEONARD, Monalisa Attending Unavailable Mckeon [facility], Jeremiah Primary Care Unavailable Nanette Macdonald Attending Unavailable Nanette Macdonald Referring Unavailable Kotsonis, Rhys F Consulting Unavailable Kotsonis, Rhys F Admitting Unavailable Saldivar, Tiki Attending Unavailable Mckeon [facility], Jeremiah Primary Care Unavailable Tiffanie Carr Consulting Unavailable Mckeon [facility], Jeremiah Primary Care Unavailable Camron CATALYST RECOVERY OPERATOR, Monalisa Attending Unavailable Camron LEONARD, Monalisa Referring Unavailable Aren Montaño Consulting Unavailable Mckeon [facility], Jeremiah Primary Care Unavailable Beam VSCAddy Attending Unavailable Nivia, Faraz Attending Unavailable Mckeon [facility], Jeremiah Primary Care Unavailable Maryan, Christiano Attending Unavailable Maryan, Christiano Referring Unavailable Mckeon [facility], Jeremiah Primary Care Unavailable SailorsYifan Referring Unavailable SailorsYifan Attending Unavailable Mckeon [facility], Jeremiah Primary Care Unavailable Kotsonis, Rhys F Consulting Unavailable Kotsonis, Rhys F Admitting Unavailable Saldivar, Tiki Attending Unavailable Mckeon [facility], Jeremiah Primary Care Unavailable Saldivar, Tiki Consulting Unavailable Kotsonis, Rhys F Consulting Unavailable Kotsonis, Rhys F Admitting Unavailable Saldivar, Tiki Attending Unavailable Mckeon [facility], Jeremiah Primary Care Unavailable Saldivar, Tiki Consulting Unavailable Kotsonis, Rhys F Referring Unavailable Nivia, Faraz Attending Unavailable Kotsonis, Rhys F Attending Unavailable Mckeon [facility], Jeremiah Referring Unavailable Friend, Faraz Attending Unavailable Mckeon [facility], Jeermiah Primary Care Unavailable Allergies Allergy Classification Reported Allergen(s) Allergy Type Date of Onset Reaction(s) Facility (9 sources) Adhesive Tape; Translations: [ADHESIVE TAPE] drug allergy 5 Rash [facility] Work Phone: (8 sources) amoxicillin / clavulanate; Translations: [AUGMENTIN] drug allergy 5 tingling and itching all over [facility] Work Phone: (9 sources) aspirin; Translations: [ASPIRIN] drug allergy 5 causes asthma [facility] Work Phone: (8 sources) atorvastatin drug allergy 5 myalgia [facility] Work Phone: (4 sources) metoprolol drug allergy 5 unknown [facility] Work Phone: (4 sources) metoprolol drug allergy 5 [facility] Work Phone: (4 sources) naproxen drug allergy 5 causes asthma [facility] Work Phone: (4 sources) naproxen drug allergy 5 [facility] Work Phone: (4 sources) PARoxetine drug allergy 5 unknown [facility] Work Phone: (7 sources) PARoxetine; Translations: [PAROXETINE] drug allergy 5 Unknown [facility] Work Phone: (8 sources) propoxyphene; Translations: [DARVON] drug allergy 5 unknown [facility] Work Phone: (8 sources) sertraline drug allergy 5 unknown [facility] Work Phone: (8 sources) simvastatin; Translations: [ZOCOR] drug allergy 5 myalgia [facility] Work Phone: (8 sources) Tetracyclines; Translations: [TETRACYCLINES] allergy to substance 5 unknown [facility] Work Phone: (4 sources) tiotropium drug allergy 5 [facility] Work Phone: (8 sources) RUBBING ALCOHOL; Translations: [RUBBING ALCOHOL] drug allergy 5 rash and salazar skin [facility] Work Phone: (4 sources) SPIRIVA HANDIHALER drug allergy 5 gets nasty, mean grumpy [facility] Work Phone: (1 source) Aluminum aspirin Drug Allergy 1 Shortness Of Breath [place], [place] (1 source) Amoxicillin Drug Allergy 1 Other (See Comments) [place], [place] (20 sources) atorvastatin; Translations: [atorvastatin calcium] Drug Allergy 1 Other (See Comments) [place], [place] (3 sources) Clavulanate; Translations: [CLAVULANIC ACID] Drug Allergy 9 Unknown [place], [place] (1 source) denatured ethanol Drug Allergy 1 Rash [place] (3 sources) Metoprolol; Translations: [METOPROLOL] Drug Allergy 5 Rash, Other (See Comments) [place] (20 sources) Naproxen; Translations: [NAPROXEN] Drug Allergy 5 Shortness Of Breath, Intolerance [place] (1 source) Propoxyphene Drug Allergy 1 [place] (20 sources) Sertraline; Translations: [SERTRALINE HCL] Drug Allergy 5 Intolerance [place] (20 sources) Simvastatin; Translations: [SIMVASTATIN] Drug Allergy 5 Intolerance [place] (1 source) tiotropium Drug Allergy 1 [place] (20 sources) Adhesive agent; Translations: [ADHESIVE] Propensity to adverse reactions [address] [facility] (20 sources) Amoxicillin; Translations: [amoxicillin trihydrate] Drug Allergy [address] [facility] (20 sources) Aspirin Drug Allergy [address] [facility] (20 sources) Isopropyl Alcohol Drug Allergy [address] [facility] (20 sources) Metoprolol; Translations: [metoprolol succinate] Drug Allergy [address] [facility] (20 sources) PARoxetine; Translations: [PAROXETINE HCL] Drug Allergy [address] [facility] (20 sources) Propoxyphene; Translations: [PROPOXYPHENE HCL] Drug Allergy [address] [facility] (20 sources) tiotropium; Translations: [TIOTROPIUM BROMIDE] Drug Allergy [address] [facility] (20 sources) potassium clavulanate; Translations: [potassium clavulanate] Propensity to adverse reactions 2 tingling all over [facility] (2 sources) atorvastatin; Translations: [ATORVASTATIN] Drug Allergy 5 Intolerance [facility] (2 sources) Doxycycline; Translations: [DOXYCYCLINE] Drug Allergy 7 Rash, Itching [facility] (2 sources) Sertraline; Translations: [SERTRALINE] Drug Allergy 5 Unknown [facility] (2 sources) ALCOHOL; Translations: [ALCOHOL] Propensity to adverse reactions to drug (disorder) 9 Hives [facility] (2 sources) AMOXICILLIN-POT CLAVULANATE; Translations: [AMOXICILLIN-POT CLAVULANATE] Propensity to adverse reactions to drug (disorder) 5 Intolerance [facility] (1 source) OTHER; Translations: [OTHER] Propensity to adverse reactions (disorder) 8 [facility] (1 source) Environmental allergies [Other] Propensity to adverse reactions 6 [facility] (1 source) tape [Other] Propensity to adverse reactions 8 [facility] Work Phone: (1 source) Aspirin Drug Allergy [address] [facility] (1 source) Isopropyl Alcohol Drug Allergy [address] [facility] (1 source) Naproxen Drug Allergy [address] [facility] (1 source) Simvastatin Drug Allergy [address] [facility] Rep[facility] Medications Current Medications Medication Drug Class(es) Dates Sig (Normalized) Sig (Original) 1 ml atropine sulfate 0.4 mg/ml injection (1 source) Anticholinergic, Cholinergic Muscarinic Antagonist Start: 06-07-2020 End: 06-07-2020 atropine injection 0.5 mg Yzupins-M6-Lotz-Co pper-Felix (Citracal-D3 Maximum Plus) 325 mg-12.5 mcg -2.75 mg tablet (9 sources) Start: 11-14-2022 take 2 tablets by mouth twice daily Beipvez-V4-Rrgd-C opper-Felix (Citracal-D3 Maximum Plus) 325 mg-12.5 mcg -2.75 mg tablet Active 2 TABLET PO TWICE A DAY November 13, 2022 11:00pm Start: 11-14-2022 take 2 tablets by mo [facility] twice daily Dmudaqd-R1-Fhys-Copper-Felix (Citracal- D3 Maximum Plus) 325 mg-12.5 mcg -2.75 mg tablet Active 2 TABLET PO TWICE A DAY November 14, 2022 12:00am cholecalciferol 0.25 mg oral capsule (14 sources) Vitamin D Start: 04-30-2022 take 250 ug by mouth once daily Cholecalciferol (Vitamin D3) Active 250 MCG PO DAILY April 30, 2022 1:00am Cholecalciferol 50 MCG (1999) TABS Take 2,000 Units by mouth 0 Active Disability Placard (6 sources) Start: 02-11-2023 Disability Laurent card Active 0 .ROUTE .MEDSUPPLY February 10, 2023 11:00pm [id number] Start: 02-11-2023 Disability Laurent card Active 0 .ROUTE .MEDSUPPLY February 11, 2023 12:00am [id number] Formoterol Fumarate (Perforomist) 20 mcg/2 mL solution for nebulization (20 sources) Start: 05-06-2023 take 1 mL by inhalation every twelve hours Formoterol Fumarate (Perforomist) 20 mcg/2 mL solution for nebulization Active 2 ML INHALATION Q12H May 06, 2023 2:26pm Start: 05-06-2023 take 1 mL by inhalat ion every twelve hours Formoterol Fumarate (Perforomist) 20 mcg/2 mL solution for nebulization Active 2 ML INHALATION Q12H May 06, 2023 1:26pm Start: 05-05-2023 End: 05-06-2023 take 1 mL by inhalation every twelve hours Formoterol Fumarate (Perforomist) 20 mcg/2 mL solution for nebulization Discontinued 2 ML INHALATION Q12H 120 May 05, 2023 11:16am May 06, 2023 2:26pm Start: 05-05-2023 End: 05-06-2023 take 1 mL by inhalation every twelve hours Formoterol Fumarate (Perforomist) 20 mcg/2 mL solution for nebulization Discontinued 2 ML INHALATION Q12H May 05, 2023 10:16am May 06, 2023 1:26pm Start: 12-25-2021 End: 05-05-2023 take 1 mL by inhalation every twelve hours Formoterol Fumarate (Perforomist) 20 mcg/2 mL solution for nebulization Discontinued 2 ML INHALATION Q12H December 25, 2021 3:18pm May 05, 2023 11:17am Start: 12-25-2021 End: 05-05-2023 take 1 mL by inhalation every twelve hours Formoterol Fumarate (Perforomist) 20 mcg/2 mL solution for nebulization Discontinued 2 ML INHALATION Q12H December 25, 2021 2:18pm May 05, 2023 10:17am Start: 12-25-2021 take 1 mL by inhalat ion every twelve hours Formoterol Fumarate (Perforomist) 20 mcg/2 mL solution for nebulization Active 2 ML INHALATION Q12H December 25, 2021 2:18pm Start: 12-25-2021 take 1 mL by inhalat ion every twelve hours Formoterol Fumarate (Perforomist) 20 mcg/2 mL solution for nebulization Active 2 ML INHALATION Q12H December 25, 2021 3:18pm Start: 12-18-2020 End: 12-25-2021 take 1 mL by inhalation every twelve hours Formoterol Fumarate (Perforomist) 20 mcg/2 mL solution for nebulization Discontinued 2 ML INHALATION Q12H December 18, 2020 7:06pm December 25, 2021 2:19pm Start: 12-18-2020 End: 12-25-2021 take 1 mL by inhalation every twelve hours Formoterol Fumarate (Perforomist) 20 mcg/2 mL solution for nebulization Discontinued 2 ML INHALATION Q12H December 18, 2020 8:06pm December 25, 2021 3:19pm Glucosamine HCl-MSM (GLUCOSAMINE-MSM PO) (1 source) take 2 tablets by mouth twice daily Glucosamine HCl-MSM (GLUCOSAMINE-MSM PO) Take 2 tablets by mouth 2 times daily 0 Active 24 hr isosorbide mononitrate 30 mg extended release oral tablet (20 sources) Nitrate Vasodilator Start: End: Lactobacillus Combination No.9 (Adult 50 Plus Probiotic) 4 billion cell capsule (13 sources) Start: take 4 capsules by mouth once daily Lactobacillus Combination No.9 (Adult 50 Plus Probiotic) 4 billion cell capsule Active 4000 MMU CELLS PO DAILY April 30, 2022 1:00am administer with a meal Start: 04-30-2022 take 4 capsules by m outh once daily Lactobacillus Combination No.9 (Adult 50 Plus Probiotic) 4 billion cell capsule Active 4000 MMU CELLS PO DAILY April 30, 2022 12:00am administer with a meal Magnesium (20 sources) Start: 12-02-2022 take 250 mg by mouth once daily Magnesium Active 250 MG PO DAILY December 01, 2022 11:00pm Start: 12-02-2022 take 250 mg by mouth once osmani y Magnesium Active 250 MG PO DAILY December 02, 2022 12:00am Start: 04-30-2022 take 250 mg by mouth once osmani y Magnesium Active 250 MG PO DAILY April 30, 2022 1:00am Start: 04-30-2022 take 250 mg by mouth once osmani y Magnesium Active 250 MG PO DAILY April 30, 2022 12:00am Dos Rios-3 Fatty Acids (OMEGA-3 FISH OIL PO) (1 source) Dos Rios-3 Fatty Ac ids (OMEGA-3 FISH OIL PO) Take by mouth 0 Active red yeast rice and coq10 (4 sources) Start: 04-30-2022 take 1 tablet by mouth once daily red yeast rice and coq10 Active PO April 30, 2022 12:00am 1 tab daily, 1215 mg Red Yeast Rice Extract (RED YEAST RICE PO) (1 source) take 2 capsules by mouth twice daily Red Yeast Rice Extract (RED YEAST RICE PO) Take 2 capsules by mouth 2 times daily 0 Active 3 ml sodium chloride 9 mg/ml injection (2 sources) Start: 06-07-2020 sodium chloride flush 0.9 % injection 10 mL Turmeric extract (13 sources) Start: 04-30-2022 take 400 mg by mouth once daily Turmeric Active 400 MG PO DAILY April 30, 2022 1:00am Start: 04-30-2022 take 1 mg by mouth once daily Turmeric Active MG PO DAILY April 30, 2022 12:00am Valarian root (1 source) Start: 07-06-2022 Valarian root Active PO July 06, 2022 12:00am (20 sources) Start: 09-27-2024 Start: 08-02-2024 End: 08-11-2024 Start: 08-02-2024 Start: 05-06-2023 End: 09-27-2024 Start: 05-06-2023 Start: 05-05-2023 End: 05-06-2023 Start: 02-11-2023 Start: 12-02-2022 End: 08-03-2023 Start: 12-02-2022 End: 01-07-2024 Start: 12-02-2022 End: 08-03-2023 Start: 12-02-2022 End: 08-03-2023 Start: 11-14-2022 End: 03-21-2024 Start: 11-14-2022 Start: 04-30-2022 End: 08-03-2023 Start: 04-30-2022 Start: 12-25-2021 End: 05-05-2023 Start: 12-25-2021 Start: 12-18-2020 End: 12-25-2021 Start: 05-15-2020 End: 12-20-2020 Start: 06-29-2019 End: 12-20-2020 Completed/Discontinued Medications Medication Drug Class(es) Dates Sig (Normalized) Sig (Original) acetaminophen 325 mg / HYDROcodone bitartrate 5 mg oral tablet (20 sources) Opioid Agonist Start: 06-20-2021 End: 06-23-2021 Start: 06-20-2021 End: 06-23-2021 take 1 tablet by mouth every six hours Hydrocodone-Acetaminophen Discontinued 1 TABLET PO EVERY 6 HOURS 02 02June 20, 2021 June 23, 2021 1:03am Start: 06-20-2021 End: 06-23-2021 [id number] 200 actuat albuter ol 0.09 mg/actuat metered dose inhaler (20 sources) beta2-Adrenergic Agonist Start: 07-02-2021 End: 07-27-2024 Start: 07-02-2021 take 1 puff(s) by in halation every four hours Albuterol Sulfate (Ventolin Hfa) 90 mcg/actuation HFA aerosol inhaler Active 2 PUFF INHALATION Q4H July 02, 2021 1:00am Start: 07-02-2021 120 actuat albuterol 0.1 mg/actuat / ipratropium bromide 0.02 mg/actuat inhalation spray (20 sources) Anticholinergic, beta2-Adrenergic Agonist Start: 08-11-2024 End: 09-27-2024 Start: 12-08-2023 End: 07-27-2024 Start: 10-30-2014 End: 06-16-2021 Start: 10-30-2014 End: 06-16-2021 Ipratropium-Albuterol Discon tinued 2 PUFF INHALATION NEEDED December 11, 2019 1:16pm June 16, 2021 12:12pm Start: 10-30-2014 End: 06-16-2021 take 20-100 ug by in halation every four hours as needed albuterol-ipratropium (COMBIVENT RESPIMAT) 20-100 MCG/ACT AERS inhaler Inhale 1 puff into the lungs every 4 hours as needed for Wheezing 0 Active COMBIVENT RESPIM AT 20-100 MCG/ACT AERS prn IPRATROPIUM-ALBUTEROL [id number] Monalisa Lyon EDUCATIONAL COORDINATOR COMBIVENT RESPIM AT 20-100 MCG/ACT AERS prn IPRATROPIUM-ALBUTEROL [id number] Monalisa Lyon EDUCATIONAL COORDINATOR COMBIVENT RESPIM AT 20-100 MCG/ACT AERS prn IPRATROPIUM-ALBUTEROL [id number] Latonya Gant LPN Comment on above: NEEDED amLODIPine 5 mg oral tablet (20 sources) Dihydropyridine Calcium Channel Kimberley Start: 12-01-2022 End: 03-21-2024 Start: 07-01-2019 End: 04-22-2020 ARFORMOTEROL TARTRATE (8 sources) beta2-Adrenergic Agonist Start: 09-18-2015 BROVA NA 15 MCG/2ML NEBU 1 ampule twice daily ARFORMOTEROL TARTRATE [id number] Monalisa Lyon EDUCATIONAL COORDINATOR Start: 09-18-2015 End: 12-11-2015 BROVANA 15 MCG/2ML NEBU 1 am pule twice daily ARFORMOTEROL TARTRATE [id number] Dee Barahona ascorbic acid 500 mg oral ca psule (20 sources) Vitamin C Start: 12-02-2022 End: 08-03-2023 Start: 04-30-2022 take 1 g by mouth once daily A scorbic Acid (Vitamin C) Active 1 GM PO DAILY April 30, 2022 1:00am Start: 04-30-2022 take 1 g by mouth once daily A scorbic Acid (Vitamin C) Active 1 GM PO DAILY April 30, 2022 12:00am azithromycin 250 mg oral tab let (20 sources) Macrolide Antimicrobial Start: 01-26-2024 End: 03-21-2024 Start: 02-16-2023 End: 04-19-2023 Start: 01-17-2019 End: 01-19-2019 Start: 01-17-2019 End: 01-19-2019 take 250 mg by mouth once daily Azithromycin Discontinued 250 MG PO daily January 17, 2019 12:00am January 19, 2019 10:34am Start: 06-09-2017 End: 08-30-2017 Start: 06-09-2017 End: 08-30-2017 take 250 mg by mouth once daily Azithromycin Discontinued 250 MG PO daily June 09, 2017 1:00am August 30, 2017 2:49pm Start: 08-28-2016 End: 12-16-2016 AZITHROMYCIN 250 MG TABS 2 t ablets by mouth today and then 1 tablet daily for the next 4 days AZITHROMYCIN [id number] Angei Leigh bempedoic acid 180 mg / ezetimibe 10 mg oral tablet (14 sources) Dietary Cholesterol Absorption Inhibitor Start: 01-12-2023 End: 08-03-2023 Start: 01-12-2023 End: 08-03-2023 take 1 tablet by mouth once daily Bempedoic Acid-Ezetimibe Discontinued 1 TABLET PO DAILY 60 January 12, 2023 12:00am August 03, 2023 2:31pm bicalutamide 50 mg oral tabl et (18 sources) Androgen Receptor Inhibitor Start: 11-14-2022 End: 03-21-2024 budesonide 0.25 mg/ml inhala tion suspension (20 sources) Corticosteroid Start: 08-06-2021 End: 06-14-2024 Start: 08-06-2021 End: 07-02-2023 take 0.5 mg by inhalation every twelve hours Budesonide Discontinued 0.5 MG INHALATION Q12H 180 July 02, 2023 11:21am July 02, 2023 12:04pm Start: 06-11-2017 End: 08-19-2020 Start: 06-11-2017 End: 08-19-2020 take 0.5 mg by inhalation every twelve hours Budesonide Discontinued 0.5 MG INHALATION Q12H 180 July 20, 2019 2:15pm August 19, 2020 10:59am Start: 06-11-2017 End: 07-20-2019 take 0.25 mg by inhalation every twelve hours Budesonide Discontinued 0.25 MG INHALATION Q12H 60 May 31, 2019 11:17am June 13, 2019 12:37pm Start: 04-11-2015 budesonide (PU LMICORT) 0.5 mg/2 mL nebulizer solution Use 0.5 mg via nebulizer twice daily. 0 04/11/2015 Active Start: 12-19-2014 BUDESONIDE 0.5 MG/2ML SUSP INH BID BUDESONIDE [id number] Dee Almeiad LPN Start: 12-19-2014 BUDESONIDE 0.5 MG/2ML SUSP INH daily BUDESONIDE [id number] Darryn Kessler Comment on above: Use 0.5 mg via nebul izer twice daily. carvedilol 3.125 mg oral tab let (20 sources) alpha-Adrenergic Kimberley, beta-Adrenergic Kimberley Start: 05-26-2021 End: 12-29-2021 Start: 05-26-2021 End: 05-26-2021 chondroitin sulfates 400 mg / glucosamine hydrochloride 500 mg oral capsule (5 sources) Start: 09-30-2012 take 2 capsules by mouth once daily Plsuqpvkapn-Rbtaoymif-Tlz C-Mn (GLUCOSAMINE CHONDROITIN MAXSTR) 500-400 mg cap Take 2 capsules by mouth once daily. 0 09/30/2012 Active take 1 tablet by mouth once [facility] GLUCOSAMINE-CHONDROITIN 500-400 MG CAPS One tablet by mouth daily GLUCOSAMINE-CHONDROITIN [id number] Gabriel Galdamez Comment on above: Take 2 capsules by [facility] once daily. chondroitin sulfates 400 mg / glucosamine hydrochloride 500 mg / methylsulfonylmethane 83 mg oral tablet (20 sources) Start: 02-14-2013 End: 04-22-2020 Start: 02-14-2013 End: 04-22-2020 take 1 tablet by mouth once daily Glucosamine Gdo-Fka-Kcdyxhktwn Discontinued 1 TABLET PO DAILY February 14, 2013 12:00am April 22, 2020 1:59pm Start: 02-14-2013 End: 04-22-2020 ciprofloxacin 500 mg oral tablet (20 sources) Quinolone Antimicrobial Start: 12-20-2020 End: 12-25-2020 SOD PICOSULFATE-MAG OX-CIT ACD (4 sources) Start: 05-10-2014 End: 05-11-2014 PREPOPIK 10-3.5-12 MG-GM-GM PACK use as per instructions SOD PICOSULFATE-MAG OX-CIT ACD [id number] Marcela Zarate clopidogrel 75 mg oral tablet (20 sources) P2Y12 Platelet Inhibitor Start: 12-28-2022 End: 02-10-2024 Start: 02-14-2013 End: 11-27-2022 Comment on above: Take [address] [facility] once daily. DIPHENOXYLATE-ATROPINE (8 sources) End: 06-12-2014 DIPHENATOL 2.5-0.025 MG TABS two tabs every 6 hrs as needed DIPHENOXYLATE-ATROPINE [id number] Darryn Kessler DIPHENATOL 2.5-0 .025 MG TABS two tabs every 6 hrs as needed DIPHENOXYLATE-ATROPINE [id number] Gabriel Galdamez doxycycline monohydrate 100 mg oral capsule (8 sources) Tetracycline-class Drug Start: 04-11-2024 End: 04-19-2024 fluticasone propionate 0.05 mg/actuat metered dose nasal spray (20 sources) Corticosteroid Start: 05-09-2020 End: 07-17-2024 Start: 05-09-2020 take 1 spray(s) nasa l route twice daily Fluticasone Propionate Active 1 SPRAY INTRANASAL TWICE A DAY May 09, 2020 1:00am administer into each nostril Start: 08-05-2015 take 2 spray(s) nasa l route once daily as needed FLUTICASONE PROPIONATE 50 MCG/ACT SUSP two sprays each nostril daily as needed FLUTICASONE PROPIONATE [id number] Dee Barahona take 1 spray(s) nasa l route once daily fluticasone (FLONASE) 50 mcg/actuation nasal spray Use 1 [place] in each nostril once daily. 0 Active take 1 spray(s) nasa l route once daily fluticasone (FLONASE) 50 MCG/ACT nasal spray 1 spray by Each Nostril route daily 0 Active Comment on above: Use 1 [place] in each nostril once daily. FLUTICASONE-SALME TEROL (12 sources) Corticosteroid, beta2-Adrenergic Agonist Start: 09-10-2015 take 1 puff(s) by inhalation twice daily ADVAIR DISKUS 250-50 MCG/DOSE AEPB 1 puff INH BID FLUTICASONE-SALMETERO L [id number] Monalisa Lyon CNP Start: 09-10-2015 End: 09-11-2015 take 1 puff(s) by inhalation twice daily ADVAIR DISKUS 250-50 MCG/DOSE AEPB 1 puff INH BID FLUTICASONE-SALMETEROL [id number] Monalisa Lyon EDUCATIONAL COORDINATOR ADVAIR DISKUS 25 0-50 MCG/DOSE AEPB 1 puff q d FLUTICASONE-SALMETEROL [id number] Latonya Gant LPN formoterol fumarate 0.01 mg/ ml inhalation solution (20 sources) beta2-Adrenergic Agonist Start: 06-11-2017 End: 12-18-2020 Start: 06-11-2017 End: 12-18-2020 take 1 mL by inhalation every twelve hours Formoterol Fumarate Discontinued 2 ML INHALATION Q12H 120 January 17, 2020 9:10am December 18, 2020 8:06pm Start: 06-11-2017 End: 12-18-2020 Start: 04-12-2015 PERFOROMIST 20 mcg/2 mL nebu Use 20 mcg via nebulizer every 12 hours. 0 04/12/2015 Active Start: 12-19-2014 PERFOROMIST 20 MCG/2ML NEBU INH daily FORMOTEROL FUMARATE [id number] Darryn Kessler Start: 12-19-2014 PERFOROMIST 20 MCG/2ML NEBU INH daily FORMOTEROL FUMARATE [id number] Monalisa Lyon EDUCATIONAL COORDINATOR Start: 12-19-2014 PERFOROMIST 20 MCG/2ML NEBU INH BID FORMOTEROL FUMARATE [id number] Dee Almeida LPN Start: 12-19-2014 PERFOROMIST 20 MCG/2ML NEBU INH BID FORMOTEROL FUMARATE [id number] Monalisa Lyon EDUCATIONAL COORDINATOR Start: 12-19-2014 PERFOROMIST 20 MCG/2ML NEBU INH BID FORMOTEROL FUMARATE [id number] Darryn Kessler Comment on above: Use 20 mcg via nebul izer every 12 hours. MOMETASONE FURO-FORMOTEROL FUM (16 sources) Corticosteroid, beta2-Adrenergic Agonist Start: 06-12-2014 End: 12-07-2014 DULERA 100-5 MCG/ACT AERO 1 puff a day MOMETASONE FURO-FORMOTEROL FUM [id number] Latonya Gant LPN Start: 06-12-2014 DULERA 100-5 M CG/ACT AERO 1 puff a day MOMETASONE FURO-FORMOTEROL FUM [id number] Darryn Kessler DULERA 100-5 MCG /ACT AERO 1 puff bid MOMETASONE FURO-FORMOTEROL FUM [id number] Darryn Kessler End: 03-12-2015 DULERA 100-5 MCG/ACT AERO 1 puff bid MOMETASONE FURO-FORMOTEROL FUM [id number] Latonya Gant LPN furosemide 40 mg oral tablet (20 sources) Loop Diuretic Start: 12-01-2022 End: 12-13-2023 Garlic (20 sources) Non-Standardized Food Allergenic Extract Start: 12-02-2022 End: 08-03-2023 Start: 12-02-2022 End: 08-03-2023 take 2000 mg by mouth once daily Garlic Discontinued 2000 MG PO DAILY December 02, 2022 12:00am August 03, 2023 2:30pm Start: 12-02-2022 take 2000 mg by mout h once daily Garlic Active 2000 MG PO DAILY December 01, 2022 11:00pm Start: 12-02-2022 take 2000 mg by mout h once daily Garlic Active 2000 MG PO DAILY December 02, 2022 12:00am Start: 06-12-2021 take 2000 mg by mout h once daily Garlic Active 2000 MG PO DAILY June 12, 2021 12:00am Start: 06-12-2021 take 2000 mg by mout h once daily Garlic Active 2000 MG PO DAILY June 12, 2021 1:00am Start: 06-29-2019 End: 12-20-2020 Start: 06-29-2019 End: 12-20-2020 take 2000 mg by mouth once daily Garlic Discontinued 2000 MG PO DAILY June 29, 2019 12:00am December 20, 2020 10:24am Start: 06-29-2019 End: 12-20-2020 take 2000 mg by mouth once daily Garlic Discontinued 2000 MG PO DAILY June 29, 2019 1:00am December 20, 2020 11:24am Start: 05-07-2016 take 1 tablet by kevin th once daily GARLIC 2000 MG TBEC One tablet by mouth daily GARLIC [id number] Dee Miller Juan Pablo HUITRON Start: 06-06-2010 take 1 capsule recta l route once daily Garlic ORAL Cap Indications: Malignant neoplasm of colon, unspecified site , Malignant neoplasm of rectum (HCC) , Unspecified vitamin D deficiency Take one(1) capsule daily. 0 06/06/2010 Active Garlic 1000 MG C APS Take 1,000 mg by mouth 0 Active Comment on above: Take one(1) capsule daily. glutamine 500 mg oral capsul e (20 sources) Amino Acid Start: 12-02-2022 End: 08-03-2023 Start: 04-30-2022 take 1 tablet by kevin th twice daily Glutamine (L-Glutamine) 500 mg tablet Active 500 MG PO TWICE A DAY April 30, 2022 1:00am Glutathione (20 sources) Start: 12-02-2022 End: 08-03-2023 Glutathione Discontinued MG PO December 02, 2022 12:00am August 03, 2023 2:30pm Start: 12-02-2022 Glutathione Ac tive MG PO December 01, 2022 11:00pm Start: 12-02-2022 Glutathione Ac tive MG PO December 02, 2022 12:00am Start: 04-30-2022 take 50 mg by mouth once daily Glutathione Active 50 MG PO DAILY April 30, 2022 1:00am Start: 04-30-2022 take 1 mg by mouth once daily Glutathione Active MG PO DAILY April 30, 2022 12:00am 12 hr guaiFENesin 1200 mg ex tended release oral tablet (20 sources) Start: 07-01-2019 End: 04-22-2020 hydrALAZINE hydrochloride 50 mg oral tablet (20 sources) Arteriolar Vasodilator Start: 04-30-2022 End: 05-10-2022 Start: 04-30-2022 End: 05-10-2022 take 25-50 mg by mouth at bedtime Hydralazine Discontinued 25 - 50 MG PO AT BEDTIME April 30, 2022 1:00am May 10, 2022 7:56pm hydrocortisone 25 mg/ml topi martina cream (8 sources) Corticosteroid Start: 03-21-2024 End: 07-17-2024 hydrOXYzine pamoate 25 mg or al capsule (20 sources) Antihistamine Start: 06-02-2022 End: 07-06-2022 Start: 06-02-2022 End: 07-06-2022 Hydroxyzine Pamoate Disconti nued 50 MG PO AT BEDTIME June 02, 2022 1:00am July 06, 2022 2:47pm Take with 25mg capsule. Start: 06-02-2022 End: 07-06-2022 Start: 05-11-2022 End: 07-06-2022 Start: 05-11-2022 End: 07-06-2022 take 25 mg by mouth at bedtime Hydroxyzine Pamoate Dis continued 25 MG PO AT BEDTIME June 02, 2022 12:30pm July 06, 2022 2:47pm Start: 05-11-2022 End: 07-06-2022 Start: 05-10-2022 End: 05-11-2022 Start: 05-10-2022 End: 05-11-2022 take 50 mg by mouth at bedtime Hydroxyzine Pamoate Dis continued 50 MG PO AT BEDTIME May 10, 2022 1:00am May 11, 2022 11:45am Start: 05-10-2022 End: 05-11-2022 ipratropium-albuterol 20-100 mcg/Puff aero inhaler (1 source) Start: 04-21-2013 take 1 puff(s) by inhalation every six hours as needed ipratropium-albuterol 20-100 mcg/Puff aero inhaler Inhale 1 Puff as instructed every 6 hours as needed. 1 Package 3 04/21/2013 Active Comment on above: Inhale 1 Puff as ins tructed every 6 hours as needed. Lactobacillus Combination No.4 (Probiotic) 3 billion cell capsule (7 sources) Start: 12-02-2022 End: 08-03-2023 take 3 capsules by mouth once daily Lactobacillus Combination No.4 (Probiotic) 3 billion cell capsule Discontinued 3000 MMU CELLS PO DAILY December 02, 2022 12:00am August 03, 2023 2:31pm administer with a meal Start: 12-02-2022 take 3 capsules by m outh once daily Lactobacillus Combination No.4 (Probiotic) 3 billion cell capsule Active 3000 MMU CELLS PO DAILY December 01, 2022 11:00pm administer with a meal Start: 12-02-2022 take 3 capsules by m outh once daily Lactobacillus Combination No.4 (Probiotic) 3 billion cell capsule Active 3000 MMU CELLS PO DAILY December 02, 2022 12:00am administer with a meal 0.375 ml leuprolide acetate 60 mg/ml prefilled syringe (15 sources) Gonadotropin Releasing Hormone Receptor Agonist Start: 12-07-2022 End: 07-17-2024 Start: 12-07-2022 Leuprolide (3 Month) (Eligard (3 Month)) 22.5 mg syringe Active 22.5 MG SC every 3 months December 07, 2022 12:00am levoFLOXacin 750 mg oral tab let (20 sources) Quinolone Antimicrobial Start: 10-28-2022 End: 11-04-2022 Start: 08-08-2022 End: 10-07-2022 Start: 08-08-2022 End: 10-07-2022 take 750 mg by mouth once daily Levofloxacin Discontin ued 750 MG PO DAILY August 08, 2022 12:00am October 07, 2022 1:21pm Start: 06-16-2021 End: 06-21-2021 Start: 04-03-2021 End: 04-08-2021 Start: 07-01-2019 End: 12-11-2019 Start: 07-01-2019 End: 12-11-2019 take 500 mg by mouth once daily Levofloxacin Discontin ued 500 MG PO DAILY July 01, 2019 1:00am December 11, 2019 1:05pm Start: 01-19-2019 End: 01-24-2019 Start: 05-12-2018 End: 05-19-2018 Start: 08-30-2017 End: 09-04-2017 Start: 06-14-2017 End: 06-21-2017 Start: 08-12-2015 End: 09-10-2015 LEVAQUIN 750 MG TABS 1 tab d ialy for 5 days LEVOFLOXACIN [id number] Monalisa Lyon CNP Start: 08-05-2015 End: 12-16-2016 take 1 tablet by mouth once daily LEVAQUIN 500 MG TABS One tablet PO daily LEVOFLOXACIN [id number] Dee Almeida LPN loperamide hydrochloride 2 m g oral capsule (20 sources) Opioid Agonist Start: 06-29-2019 End: 12-20-2020 loperamide HCl ( IMODIUM) 2 mg tab Take 2 mg by mouth as needed (diarrhea). 0 Active Comment on above: Take 2 mg by mouth a s needed (diarrhea). LORazepam 0.5 mg oral tablet (20 sources) Benzodiazepine Start: 3 End: 3 take 2 tablets by mouth at bedtime Lorazepam (Ativan) 0.5 mg tablet Discontinued 1 MG PO AT BEDTIME May 08, 2022 4:20pm June 02, 2022 12:30pm Start: 04-02-2021 End: 06-17-2022 Start: 04-02-2021 End: 06-12-2021 take 1.5 mg by mouth at bedtime Lorazepam Discontinued 1.5 MG PO AT BEDTIME April 30, 2021 2:04pm May 26, 2021 2:58pm Start: 06-11-2020 End: 03-29-2021 Start: 06-11-2020 End: 03-29-2021 take 1.5 mg by mouth at bedtime Lorazepam Discontinued 1.5 MG PO AT BEDTIME February 27, 2021 2:32pm March 29, 2021 1:01am Start: 06-29-2019 End: 06-08-2020 Start: 06-29-2019 End: 06-08-2020 take 1.5 mg by mouth at bedtime Lorazepam Discontinued 1.5 MG PO AT BEDTIME April 25, 2020 1:00am May 09, 2020 5:21pm Start: 05-07-2016 take 1 tablet by kevin th three times daily ATIVAN 0.5 MG TABS One tablet by mouth three times daily LORAZEPAM [id number] Dee Miller Juan Pablo HUITRON Start: 04-10-2014 End: 05-08-2022 take 3 tablets by mouth at bedtime Lorazepam (Ativan) 0.5 mg tablet Discontinued 1.5 MG PO AT BEDTIME April 07, 2022 4:51pm May 08, 2022 4:22pm take 1 tablet by kevin th once daily LORAZEPAM 1 MG TABS One tablet by mouth daily LORAZEPAM [id number] Monalisa Lyon CNP Comment on above: Take three tablets b y mouth at bedtime as needed. losartan potassium 100 mg or al tablet (20 sources) Angiotensin 2 Receptor Kimberley Start: 04-17-2021 End: 12-29-2021 Start: 04-17-2021 End: 12-29-2021 take 50 mg by mouth twice daily Losartan Discontinued 50 MG PO TWICE A DAY July 21, 2021 10:07am December 29, 2021 2:59pm Start: 08-09-2020 End: 04-17-2021 Start: 08-09-2020 End: 03-04-2021 take 50 mg by mouth once daily Losartan Discontinued 5 0 MG PO DAILY August 09, 2020 11:19am March 04, 2021 11:01am Start: 08-09-2020 End: 04-17-2021 take 100 mg by mouth once daily Losartan Discontinued 100 MG PO DAILY March 17, 2021 2:13pm April 17, 2021 2:35pm Start: 05-15-2020 End: 08-09-2020 mirtazapine 15 mg oral table t (20 sources) Start: 04-19-2024 End: 04-30-2024 Start: 08-17-2022 End: 08-03-2023 Start: 06-24-2022 End: 03-21-2024 Start: 06-17-2022 End: 06-24-2022 Start: 06-17-2022 End: 06-24-2022 take 7.5 mg by mouth at bedtime Mirtazapine Discontinu ed 7.5 MG PO AT BEDTIME June 17, 2022 1:00am June 24, 2022 1:58pm Comment on above: Take 15 mg by mouth daily at bedtime. montelukast 10 mg oral tablet (10 sources) Leukotriene Receptor Antagonist Start: 4 End: 4 Multivitamin preparation (20 sources) Start: 2 End: 4 take 2 tablets by mouth once daily Multivitamin Discontinued 2 TABLET PO DAILY April 30, 2022 1:00am August 03, 2023 2:31pm Start: 04-30-2022 take 2 tablets by mo [facility] once daily Multivitamin Active 2 TABLET PO DAILY April 30, 2022 1:00am Start: 04-30-2022 take 2 tablets by mo [facility] once daily Multivitamin Active 2 TABLET PO DAILY April 30, 2022 12:00am nitroglycerin 0.4 mg subling ual tablet (20 sources) Nitrate Vasodilator Start: 11-16-2022 End: 08-02-2024 Start: 11-16-2022 Nitroglycerin Active 0.4 MG SL Q5M November 16, 2022 12:00am Start: 11-16-2022 Start: 12-11-2010 nitroglycerin sublingual (NITROSTAT) 0.4 mg SUBLINGUAL SL tablet Dissolve 1 tablet under the tongue as needed. 1 Bottle of 25 3 12/11/2010 Active End: 05-07-2016 NITROSTAT 0.4 MG SUBL as nee ded NITROGLYCERIN [id number] Monalisa Lyon EDUCATIONAL COORDINATOR Comment on above: Dissolve 1 tablet un camelia the tongue as needed. TIOTROPIUM BROMIDE-OLODATEROL (8 sources) Anticholinergic, beta2-Adrenergic Agonist Start: 09-10-2015 STIOLTO RESPIMAT 2.5-2.5 MCG/ACT AERS 2 puffs daily TIOTROPIUM BROMIDE-OLODATEROL [id number] Monalisa Lyon EDUCATIONAL COORDINATOR Start: 09-10-2015 End: 12-11-2015 STIOLTO RESPIMAT 2.5-2.5 MCG /ACT AERS 2 puffs daily TIOTROPIUM BROMIDE-OLODATEROL [id number] Dee Barahona Yvpio-1k-Hvu-Epa-Fish Oil-D3 (20 sources) Start: 05-15-2020 End: 12-20-2020 Uxddb-5l-Hng-Epa-Fish Oil-D3 Discontinued 1 EACH PO DAILY May 15, 2020 12:00am December 20, 2020 10:24am Start: 05-15-2020 End: 12-20-2020 Epaqz-6j-Eln-Epa-Fish Oil-D3 Discontinued 1 EACH PO DAILY May 15, 2020 1:00am December 20, 2020 11:24am oseltamivir 30 mg oral capsule (20 sources) Neuraminidase Inhibitor Start: 07-01-2019 End: 04-22-2020 OTC NUTRITIONAL SUPPLEMENT (1 source) Start: 03-01-2009 OT NUTRITIONA L SUPPLEMENT red yeast rice 1200 mg daily 0 03/01/2009 Active Comment on above: red yeast rice 1200 mg daily piroxicam 10 mg oral capsule (20 sources) Nonsteroidal Anti-inflammatory Drug Start: 08-12-2012 End: 04-22-2020 Comment on above: Take 1 capsule by [facility] once daily. potassium chloride 20 meq extended release oral tablet (16 sources) Start: 04-19-2024 End: 04-30-2024 Start: 10-20-2023 End: 01-07-2024 predniSONE 50 mg oral tablet (20 sources) Corticosteroid Start: 04-30-2024 End: 06-14-2024 Start: 01-21-2024 End: 04-30-2024 Start: 12-24-2022 End: 05-12-2023 Start: 10-28-2022 End: 11-10-2022 Start: 08-08-2022 End: 10-07-2022 Start: 08-08-2022 End: 10-07-2022 take 40 mg by mouth once daily Prednisone Discontinued 40 MG PO DAILY August 08, 2022 12:00am October 07, 2022 1:21pm Start: 02-25-2021 End: 04-30-2022 Start: 10-16-2020 End: 11-06-2020 Start: 07-01-2019 End: 12-11-2019 Start: 01-17-2019 End: 06-13-2019 Start: 05-12-2018 End: 01-10-2019 Start: 06-09-2017 End: 01-10-2018 Start: 08-28-2016 End: 09-09-2016 PREDNISONE 10 MG TABS Take 4 tabs by mouth for 3 days, then 3 tabs by mouth for 3 days, then 2 tabs by mourth for 3 days, then 1 tab by mouth for 3 days. PREDNISONE [id number] Monalisa Lyon EDUCATIONAL COORDINATOR Start: 05-07-2016 End: 05-19-2016 PREDNISONE 10 MG TABS Take 4 tabs by mouth for 3 days, then 3 tabs by mouth for 3 days, then 2 tabs by mourth for 3 days, then 1 tab by mouth for 3 days. PREDNISONE [id number] Monalisa Lyon EDUCATIONAL COORDINATOR Start: 02-14-2016 End: 02-26-2016 PREDNISONE 10 MG TABS Take 4 tabs by mouth for 3 days, then 3 tabs by mouth for 3 days, then 2 tabs by mourth for 3 days, then 1 tab by mouth for 3 days. PREDNISONE [id number] Monalisa Lyon EDUCATIONAL COORDINATOR Start: 08-05-2015 End: 08-26-2015 PREDNISONE 10 MG TABS Take 4 tabs by mouth for 3 days, then 3 tabs by mouth for 3 days, then 2 tabs by mourth for 3 days, then 1 tab by mouth for 3 days. [facility] [id number] Monalisa Lyon EDUCATIONAL COORDINATOR Red Rice Yeast (20 sources) Start: 06-29-2019 End: 12-20-2020 take 2 capsules by mouth once daily Red Rice Yeast Discontinued 2 CAP PO DAILY June 29, 2019 12:00am December 20, 2020 10:24am Start: 06-29-2019 End: 12-20-2020 take 2 capsules by mouth once daily Red Rice Yeast Discontinued 2 CAP PO DAILY June 29, 2019 1:00am December 20, 2020 11:24am red yeast rice 600 mg oral t ablet (20 sources) Start: 06-12-2021 End: 04-30-2022 Start: 05-07-2016 take 1 capsule by mo [facility] once daily RED YEAST RICE CAPS 1000 mg po once daily RED YEAST RICE EXTRACT CAPS [id number] Dee Angela Almeida LPN tamsulosin hydrochloride 0.4 mg oral capsule (20 sources) alpha-Adrenergic Kimberley Start: 06-29-2019 End: 05-22-2024 Start: 10-08-2014 End: 10-13-2022 take 0.4 mg by mouth at bedtime Tamsulosin Discontinue d 0.4 MG PO AT BEDTIME April 15, 2022 12:49pm October 13, 2022 12:00pm Comment on above: Take 0.4 mg by mouth once daily. ticagrelor 90 mg oral tablet (17 sources) Start: 11-27-2022 End: 12-28-2022 ubidecarenone 75 mg oral cap bean (14 sources) Start: 12-18-2022 End: 08-03-2023 verapamil hydrochloride 240 mg extended release oral tablet (20 sources) Calcium Channel Kimberley Start: 04-10-2021 End: 05-05-2024 Start: 04-10-2021 End: 05-05-2023 take 240 mg by mouth at bedtime Verapamil Discontinued 240 MG PO AT BEDTIME April 29, 2023 11:58am May 05, 2023 1:57pm Start: 04-10-2021 End: 04-28-2022 Start: 06-29-2019 End: 04-10-2021 take 120 mg by mouth at bedtime Verapamil Discontinued 120 MG PO AT BEDTIME November 25, 2020 8:20am April 10, 2021 9:31am Start: 02-27-2019 End: 04-10-2021 verapamil (CALAN ) 120 MG tablet Take 120 mg by mouth 0 Active take 1 tablet by kevin th once daily in the evening VERELAN PM 200 MG [id number] One tablet by mouth daily VERAPAMIL HCL [id number] Dee Almeida OUTSEWER take 1 tablet by kevin th once daily in the evening VERELAN PM 200 MG [id number] One tablet by mouth daily VERAPAMIL HCL [id number] Monalisa Lyon EDUCATIONAL COORDINATOR take 1 tablet by kevin th once daily in the evening VERELAN PM 200 MG [id number] One tablet by mouth daily VERAPAMIL HCL [id number] Gabriel Kaufman Denice Comment on above: 240 mg once daily. Vitamin B Complex (20 sources) Start: 12-02-2022 End: 08-03-2023 take 1 tablet by mouth once daily Vitamin B Complex Discontinued 1 TABLET PO DAILY December 02, 2022 12:00am August 03, 2023 2:31pm Start: 12-02-2022 take 1 tablet by mouth once da buzz Vitamin B Complex Active 1 TABLET PO DAILY December 01, 2022 11:00pm Start: 12-02-2022 take 1 tablet by mouth once da buzz Vitamin B Complex Active 1 TABLET PO DAILY December 02, 2022 12:00am Start: 04-30-2022 take 1 capsule by mo uth once daily Vitamin B Complex Active 1 CAP PO DAILY April 30, 2022 1:00am Start: 04-30-2022 take 1 capsule by mo uth once daily Vitamin B Complex Active 1 CAP PO DAILY April 30, 2022 12:00am Problems Active Problems Problem Classification Problem Date Documented Da te Episodic/Chronic Abdominal hernia (20 sources) Left inguinal hernia ; Translations: [Unilateral inguinal hernia, without obstruction or gangrene, not specified as recurrent] Onset: 8 10-01-2021 Episodic Abdominal pain (20 sources) Abdominal pain; Translations: [Unspecified abdominal pain] Onset: 5 08-08-2020 Episodic Acquired foot deformities (20 sources) Acquired deformity of toe; Translations: [Acquired deformities of toe(s), unspecified, unspecified foot] 10-21-2022 Episodic Acute myocardial infarction (20 sources) Myocardial infarction; Translations: [Non-ST elevation (NSTEMI) myocardial infarction] Onset: 3 11-14-2022 Chronic Anal and rectal conditions (8 sources) Radiation proctitis; Translations: [Radiation proctitis] 08-02-2024 Episodic Aortic; peripheral; and visceral artery aneurysms (20 sources) Abdominal aortic aneurysm; Translations: [Abdominal aortic aneurysm, without rupture] 10-01-2021 Chronic Asthma (20 sources) Moderate persistent asthma; Translations: [Asthma] Onset: 5 06-12-2014 Chronic Cancer of colon (1 source) Malignant tumor of colon; Translations: [Malignant neoplasm of colon, unspecified] Onset: 8 09-21-2007 Chronic Cancer of colon (20 sources) History of malignant neoplasm of colon; Translations: [Personal history of other malignant neoplasm of large intestine] Onset: 5 06-11-2017 Episodic Cancer of prostate (20 sources) Malignant tumor of prostate; Translations: [Malignant neoplasm of prostate] Onset: 5 10-07-2022 Chronic Cancer of rectum and anus (1 source) Malignant tumor of rectum; Translations: [Malignant neoplasm of rectum] Onset: 8 03-03-2019 Chronic Cancer of rectum and anus (7 sources) Personal history of other malignant neoplasm of rectum, rectosigmoid junction, and anus; Translations: [History of malignant neoplasm of digestive organ] Onset: 3 05-10-2014 Episodic Cardiac dysrhythmias (20 sources) Tachycardia; Translations: [Sinus bradycardia] Onset: 5 06-12-2014 Episodic Chronic kidney disease (20 sources) Chronic kidney disease stage 3B ; Translations: [Stage 3b chronic kidney disease] 11-14-2022 Chronic Chronic obstructive pulmonary disease and bronchiectasis (20 sources) Moderate chronic obstructive pulmonary disease; Translations: [Acute exacerbation of chronic obstructive airways disease] Onset: 5 12-20-2015 Chronic Chronic obstructive pulmonary disease and bronchiectasis (8 sources) Bronchitis; Translations: [Bronchitis, not specified as acute or chronic] 04-19-2024 Episodic Congestive heart failure; nonhypertensive (20 sources) Heart failure with reduced ejection fraction; Translations: [Unspecified systolic (congestive) heart failure] 12-18-2022 Chronic Coronary atherosclerosis and other heart disease (20 sources) Coronary atherosclerosis; Translations: [History of acute ST segment elevation myocardial infarction] Onset: 5 Chronic Deficiency and other anemia (13 sources) Anemia; Translations: [Anemia, unspecified] 2023 Episodic Deficiency and other anemia (1 source) Anemia, unspecified; Translations: [Anemia, unspecified] Onset: 5 Episodic Disorders of lipid metabolism (20 sources) Hyperlipidemia; Translations: [Hyperlipidemia, unspecified] Onset: 5 Chronic Esophageal disorders (1 source) Gastroesophageal reflux disease; Translations: [Gastro-esophageal reflux disease without esophagitis] Onset: 5 02-27-2005 Chronic Essential hypertension (20 sources) Essential hypertension; Translations: [Essential (primary) hypertension] Onset: 5 Chronic Fever of unknown origin (20 sources) Fever; Translations: [Fever, unspecified] 08-08-2022 Episodic Fluid and electrolyte disorders (20 sources) Hypokalemia; Translations: [Hypokalemia] Onset: 5 11-16-2022 Episodic Fracture of lower limb (20 sources) Closed fracture of great toe; Translations: [Displaced unspecified fracture of right great toe, initial encounter for closed fracture] 10-21-2022 Episodic Gastrointestinal hemorrhage (20 sources) Rectal hemorrhage; Translations: [Hemorrhage of anus and rectum] Onset: 5 03-21-2024 Episodic Genitourinary symptoms and ill-defined conditions (20 sources) History of renal insufficiency; Translations: [Personal history of other diseases of urinary system] 11-01-2022 Episodic Hyperplasia of prostate (20 sources) Benign prostatic hyperplasia; Translations: [Benign prostatic hyperplasia without lower urinary tract symptoms] Onset: 8 07-06-2022 Chronic Intestinal obstruction without hernia (20 sources) Partial obstruction of small bowel; Translations: [Partial intestinal obstruction, unspecified as to cause] 12-28-2020 Episodic Nonspecific chest pain (20 sources) Chest pain; Translations: [Chest pain, unspecified] 11-01-2022 Episodic Nutritional deficiencies (20 sources) Iron deficiency; Translations: [Iron deficiency] 05-14-2020 Episodic Occlusion or stenosis of precerebral arteries (20 sources) Left carotid artery stenosis; Translations: [Occlusion and stenosis of left carotid artery] Onset: 5 Chronic Open wounds of head; neck; and trunk (20 sources) Laceration - injury; Translations: [Laceration] 07-31-2022 Episodic Osteoarthritis (1 source) Osteoarthrosis of the carpometacarpal joint of the thumb; Translations: [Unilateral primary osteoarthritis of first carpometacarpal joint, left hand] Onset: 9 03-03-2019 Chronic Other aftercare (20 sources) Patient encounter status; Translations: [Encounter for therapeutic drug level monitoring] 12-29-2021 Episodic Other aftercare (5 sources) Encounter for therapeutic drug level monitoring; Translations: [Encounter for therapeutic drug monitoring] Episodic Other aftercare (8 sources) Long-term current use of diuretic; Translations: [Encounter for therapeutic drug level monitoring] 12-01-2022 Episodic Other circulatory disease (20 sources) History of endovascular stent graft for repair of abdominal aortic aneurysm; Translations: [Presence of other vascular implants and grafts] Onset: 1 08-08-2020 Chronic Other circulatory disease (20 sources) Presence of other vascular implants and grafts; Translations: [Blood vessel replaced by other means] Onset: 1 Chronic Other connective tissue disease (20 sources) Triggering of digit; Translations: [Trigger finger, unspecified finger] 10-16-2022 Episodic Other connective tissue disease (7 sources) Trigger finger, unspecified finger; Translations: [Trigger finger (acquired)] 10-26-2022 Episodic Other connective tissue disease (6 sources) Trigger finger, right middle finger; Translations: [Trigger finger (acquired)] 04-14-2023 Episodic Other connective tissue disease (6 sources) Trigger finger, right ring finger; Translations: [Trigger finger (acquired)] 04-14-2023 Episodic Other gastrointestinal disorders (7 sources) Vascular ectasia of colon; Translations: [Angiodysplasia of colon without hemorrhage] 08-09-2024 Episodic Other gastrointestinal disorders (1 source) Angiodysplasia of colon without hemorrhage; Translations: [Angiodysplasia of colon without hemorrhage] Onset: 5 Episodic Other lower respiratory disease (20 sources) Hypoxia; Translations: [Hypoxemia] 05-07-2020 Episodic Other lower respiratory disease (15 sources) Dyspnea; Translations: [Shortness of breath] 12-18-2022 Episodic Other lower respiratory disease (16 sources) Multiple nodules of lung; Translations: [Other nonspecific abnormal finding of lung field] 05-04-2024 Episodic Other non-traumatic joint disorders (13 sources) Swollen ankle region; Translations: [Effusion, unspecified ankle] 2023 Episodic Other screening for suspected conditions (not mental disorders or infectious disease) (20 sources) Thallium stress test abnormal; Translations: [Raised prostate specific antigen] Onset: 3 06-07-2020 Episodic Other upper respiratory disease (1 source) Allergic rhinitis; Translations: [Allergic rhinitis, unspecified] Onset: 7 07-29-2006 Chronic Other upper respiratory disease (20 sources) Bleeding from nose; Translations: [Epistaxis] 10-01-2021 Episodic Other upper respiratory disease (8 sources) Acute bronchospasm; Translations: [Acute bronchospasm] 04-19-2024 Episodic Other upper respiratory infections (1 source) Chronic sinusitis; Translations: [Chronic sinusitis, unspecified] Onset: 7 07-29-2006 Chronic Residual codes; unclassified (1 source) Hypoxia; Translations: [Idiopathic sleep related nonobstructive alveolar hypoventilation] Onset: 9 03-03-2019 Chronic Residual codes; unclassified (20 sources) Insomnia; Translations: [Insomnia, unspecified] Onset: 5 02-26-2021 Episodic Residual codes; unclassified (20 sources) Insomnia, unspecified; Translations: [Insomnia, unspecified] Episodic Residual codes; unclassified (11 sources) Other specified postprocedural states; Translations: [Personal history of surgery to other organs] Episodic Secondary malignancies (1 source) Secondary malignant neoplasm of intra-abdominal lymph nodes; Translations: [Secondary and unspecified malignant neoplasm of intra-abdominal lymph nodes] Onset: 8 12-06-2007 Chronic Spondylosis; intervertebral disc disorders; other back problems (20 sources) Low back pain; Translations: [Low back pain] 10-01-2021 Episodic Superficial injury; contusion (20 sources) Subungual hematoma of great toe of right foot; Translations: [Contusion of right great toe with damage to nail, initial encounter] 10-21-2022 Episodic Unclassified (1 source) Acidosis, unspecified; Translations: [Acidosis, unspecified] Onset: Past or Other Problems Problem Classification Problem Date Documented Da te Episodic/Chronic Coronary atherosclerosis and other heart disease (2 sources) History of placement of stent for coronary artery disease; Translations: [Presence of coronary angioplasty implant and graft] Onset: 06-07-2020 11-16-2022 Episodic Deficiency and other anemia (1 source) Iron deficiency anemia; Translations: [Iron deficiency anemia, unspecified] Onset: 12-06-2007 12-06-2007 Episodic Gastritis and duodenitis (1 source) Acute gastritis; Translations: [Acute gastritis without bleeding] Onset: 09-21-2007 09-21-2007 Episodic Other gastrointestinal disorders (1 source) Diarrhea; Translations: [Diarrhea, unspecified] Onset: 04-05-2008 04-05-2008 Episodic Other lower respiratory disease (7 sources) Shortness of breath; Translations: [Shortness of breath] Onset: 05-12-2024 12-18-2022 Episodic Other lower respiratory disease (9 sources) Other forms of dyspnea; Translations: [Chronic dyspnea] Onset: 05-25-2024 04-19-2024 Episodic Other lower respiratory disease (1 source) Other nonspecific abnormal finding of lung field; Translations: [Other nonspecific abnormal finding of lung field] Onset: 06-23-2024 Episodic Results Test Name Value Interpretation Reference Range Facility Pulmonary Visit Reporton Pulmonary Visit Report Normal [facility] Chest without Contraston Chest without Contrast Normal [facility] PSA,Total- Diagnosticon 05-0 PSA, DIAGNOSTIC < 0.02 Normal 0.00-4.[address] [facility] Comment on above: Result Comment: This test was performed using the [employer] tPSAmethod. Measured values of a patient??sample can varydepending on the testing procedure used. PSA valuesdetermined on patient samples by different testingprocedures cannot be used interchangeably. If there is achange in PSA assays while monitoring therapy, sequentialtesting should be performed to confirm baseline values. Performed By: #### L 504.5150 ####[facility] [address] [place], [address] Basic Metabolic Profile (BMP )on 08-12-2024 BUN Normal 4-[address] [facility] Comment on above: Result Comment: Canc elled via OM: Order cancelled - Patient discharged Performed By: #### L 500.2500, L100.0100 ####[facility] [address] [place], [address] BUN/CRE Normal 10-[address] [facility] Comment on above: Result Comment: Canc elled via OM: Order cancelled - Patient discharged Performed By: #### L 500.2500, L100.0100 ####[facility] [address] [place], [address] Calcium Normal 7.6-11.[address] [facility] Comment on above: Result Comment: Canc elled via OM: Order cancelled - Patient discharged Performed By: #### L 500.2500, L100.0100 ####[facility] [address] [place], [address] CL Normal 98-[address] [facility] Comment on above: Result Comment: Canc elled via OM: Order cancelled - Patient discharged Performed By: #### L 500.2500, L100.0100 ####[facility] [address] [place], [address] CO2 Normal 21.0-32.[address] [facility] Comment on above: Result Comment: Canc elled via OM: Order cancelled - Patient discharged Performed By: #### L 500.2500, L100.0100 ####[facility] [address] [place], [address] CREAT,SERUM Normal 0.70-1.[address] [facility] Comment on above: Result Comment: Canc elled via OM: Order cancelled - Patient discharged Performed By: #### L 500.2500, L100.0100 ####[facility] [address] [place], [address] eGFR Normal >[address] [facility] Comment on above: Result Comment: Canc elled via OM: Order cancelled - Patient discharged Performed By: #### L 500.2500, L100.0100 ####[facility] [address] [place], [address] GAP Normal 5-[address] [facility] Comment on above: Result Comment: Canc elled via OM: Order cancelled - Patient discharged Performed By: #### L 500.2500, L100.0100 ####[facility] [address] [place], [address] GLU Normal 70-[address] [facility] Comment on above: Result Comment: Canc elled via OM: Order cancelled - Patient discharged Performed By: #### L 500.2500, L100.0100 ####[facility] [address] [place], [address] Potassium Normal 3.3-5.[address] [facility] Comment on above: Result Comment: Canc elled via OM: Order cancelled - Patient discharged Performed By: #### L 500.2500, L100.0100 ####[facility] [address] [place], [address] Basic Metabolic Profile (BMP) Normal 133-[address] [facility] Comment on above: Result Comment: Canc elled via OM: Order cancelled - Patient discharged Performed By: #### L 500.2500, L100.0100 ####[facility] [address] [place], [address] CBC W/Diff, Automatedon 08-01 Absolute Neut Normal 2.0-7.[address] [facility] Comment on above: Result Comment: Canc elled via OM: Order cancelled - Patient discharged Performed By: #### L 500.2500, L100.0100 ####[facility] [address] [place], [address] HCT Normal 40-[address] [facility] Comment on above: Result Comment: Canc elled via OM: Order cancelled - Patient discharged Performed By: #### L 500.2500, L100.0100 ####[facility] [address] [place], [address] HGB Normal 13.0-16.[address] [facility] Comment on above: Result Comment: Canc elled via OM: Order cancelled - Patient discharged Performed By: #### L 500.2500, L100.0100 ####[facility] [address] [place], [address] MCH Normal 27.0-32.[address] [facility] Comment on above: Result Comment: Canc elled via OM: Order cancelled - Patient discharged Performed By: #### L 500.2500, L100.0100 ####[facility] [address] [place], [address] MCHC Normal 32-[address] [facility] Comment on above: Result Comment: Canc elled via OM: Order cancelled - Patient discharged Performed By: #### L 500.2500, L100.0100 ####[facility] [address] [place], [address] MCV Normal 80-[address] [facility] Comment on above: Result Comment: Canc elled via OM: Order cancelled - Patient discharged Performed By: #### L 500.2500, L100.0100 ####[facility] [address] [place], [address] NEUT% Normal 47-[address] [facility] Comment on above: Result Comment: Canc elled via OM: Order cancelled - Patient discharged Performed By: #### L 500.2500, L100.0100 ####[facility] [address] [place], [address] PLT Normal 150-[address] [facility] Comment on above: Result Comment: Canc elled via OM: Order cancelled - Patient discharged Performed By: #### L 500.2500, L100.0100 ####[facility] [address] [place], [address] RBC Normal 4.6-6.[address] [facility] Comment on above: Result Comment: Canc elled via OM: Order cancelled - Patient discharged Performed By: #### L 500.2500, L100.0100 ####[facility] [address] [place], [address] RDW CV Normal 11.6-14.[address] [facility] Comment on above: Result Comment: Canc elled via OM: Order cancelled - Patient discharged Performed By: #### L 500.2500, L100.0100 ####[facility] [address] [place], [address] RDW SD Normal 35.1-43.[address] [facility] Comment on above: Result Comment: Canc elled via OM: Order cancelled - Patient discharged Performed By: #### L 500.2500, L100.0100 ####[facility] [address] [place], [address] WBC Normal 4.4-11.[address] [facility] Comment on above: Result Comment: Canc elled via OM: Order cancelled - Patient discharged Performed By: #### L 500.2500, L100.0100 ####[facility] [address] [place], [address] Discharge Instructionon 08-01 Discharge Instruction Normal [facility] Discharge Instruction Normal [facility] 12 Lead EKGon 08-10-2024 12 Lead EKG Normal [facility] Absolute lymphocyte countOrd ered By: Rhys Fontana on 08-10-2024 Lymphocytes Auto (Unsp spec) [#/Vol] 0.66 10*3/uL Low 0.83-4.[address] [facility] Absolute neutrophil countOrd ered By: Rhys Fontana on 08-10-2024 Absolute neutrophil count 6.5 X10^3/uL 2.0-7.[address] [facility] Anion gap [Moles/Vol]Ordered By: Rhys Fontana on 08-10-2024 Anion gap in Serum or Plasma 14 09-[address] [facility] Anion gap in Serum or Plasma Ordered By: Rhys Fontana on 08-10-2024 Anion gap [Moles/Vol] 14 mmol/L 09-14 [facility] Automated lymphocyte count a s percentage of total leukocytesOrdered By: Rhys Fontana on 08-10-2024 Lymphocytes/100 WBC Auto (Unsp spec) 8.1 % Low [facility] BUN/creatinine ratioOrdered By: Rhys Fontana on 08-10-2024 Urea nitrogen/Creatinine [Mass ratio] 16.0 mg/mg 02-[address] [facility] BUN/creatinine ratio 16.0 RATIO 02-19 [facility] Basic Metabolic Profile (BMP )on 08-10-2024 BUN/CRE 16.0 RATIO Normal 02-[address] [facility] Comment on above: Performed By: #### L 500.2500, L100.0100 ####[facility] [address] [place], [address] Calcium [Mass/Vol] 9.7 mg/dL Normal 7.6-11.0 [facility] Comment on above: Performed By: #### L 500.2500, L100.0100 ####[facility] [address] [place], [address] Chloride [Moles/Vol] 107 mmol/L Normal 98-108 [facility] Comment on above: Performed By: #### L 500.2500, L100.0100 ####[facility] [address] [place], [address] CO2 [Moles/Vol] 19.5 mmol/L Low 21.0-32.[address] [facility] Comment on above: Performed By: #### L 500.2500, L100.0100 ####[facility] [address] [place], [address] Creatinine [Mass/Vol] 1.27 mg/dL High 0.70-1.20 [facility] Comment on above: Performed By: #### L 500.2500, L100.0100 ####[facility] [address] [place], [address] ECRCL 39.96 ml/min Low 50-[address] [facility] Comment on above: Performed By: #### L 500.2500, L100.0100 ####[facility] [address] [place], [address] GAP 14 Normal 5-[address] [facility] Comment on above: Performed By: #### L 500.2500, L100.0100 ####[facility] [address] [place], [address] GFR/1.73 sq M.predicted among non-blacks MDRD (S/P/Bld) [Vol rate/Area] 57 mL/min/{1.73_m2} Low >[address] [facility] Comment on above: Result Comment: mL/m in/1.73m2 CKD-EPI Creatinine Equation (2020) Performed By: #### L 500.2500, L100.0100 ####[facility] [address] [place], [address] Glucose [Mass/Vol] 119 mg/dL High 70-99 [facility] Comment on above: Performed By: #### L 500.2500, L100.0100 ####[facility] [address] [place], [address] Potassium [Moles/Vol] 3.5 mmol/L Normal 3.3-5.1 [facility] Comment on above: Performed By: #### L 500.2500, L100.0100 ####[facility] [address] [place], [address] Sodium [Moles/Vol] 140 mmol/L Normal 133-145 [facility] Comment on above: Performed By: #### L 500.2500, L100.0100 ####[facility] [address] [place], [address] Urea nitrogen [Mass/Vol] 20 mg/dL High 4-[address] [facility] Comment on above: Performed By: #### L 500.2500, L100.0100 ####[facility] [address] [place], [address] Basophil percentageOrdered B y: Rhys Fontana on 08-10-2024 Basophils/100 WBC (Bld) 1.0 % 0-1 [facility] Basophil percentage 1.0 % 0-1 [facility] CBC W/Diff, Automatedon 08-01 0-2024 Absolute Lymph 0.66 X10 3/uL Low 0.83-4.[address] [facility] Comment on above: Performed By: #### L 500.2500, L100.0100 ####[facility] [address] [place], [address] Absolute Neut 6.5 X10 3/uL Normal 2.0-7.[address] [facility] Comment on above: Performed By: #### L 500.2500, L100.0100 ####[facility] [address] [place], [address] Basophils/100 WBC (Bld) 1.0 % Normal 0-1 [facility] Comment on above: Performed By: #### L 500.2500, L100.0100 ####[facility] [address] [place], [address] Eosinophils/100 WBC (Bld) 4.4 % Normal 0-[address] [facility] Comment on above: Performed By: #### L 500.2500, L100.0100 ####[facility] [address] [place], [address] Erythrocyte distribution width (RBC) [Ratio] 12.1 % Normal 11.6-14.[address] [facility] Comment on above: Performed By: #### L 500.2500, L100.0100 ####[facility] [address] [place], [address] Hematocrit (Bld) [Volume fraction] 34.4 % Low 40-[address] [facility] Comment on above: Performed By: #### L 500.2500, L100.0100 ####[facility] [address] [place], [address] Hemoglobin (Bld) [Mass/Vol] 11.7 g/dL Low 13.0-16.[address] [facility] Comment on above: Performed By: #### L 500.2500, L100.0100 ####[facility] [address] [place], [address] IG% 0.200 Normal 0.0-0.[address] [facility] Comment on above: Result Comment: IG% - Immature Granulocytes (promyelocytes, myelocytes andmetamyelocytes) > 1% indicates that a LEFT SHIFT is Present. Performed By: #### L 500.2500, L100.0100 ####[facility] [address] [place], [address] Lymphocytes/100 WBC (Bld) 8.1 % Low 19-[address] [facility] Comment on above: Performed By: #### L 500.2500, L100.0100 ####[facility] [address] [place], [address] MCH (RBC) [Entitic mass] 32.0 pg Normal 27.0-32.[address] [facility] Comment on above: Performed By: #### L 500.2500, L100.0100 ####[facility] [address] [place], [address] MCHC (RBC) [Mass/Vol] 34.0 g/dL Normal 32-36 [facility] Comment on above: Performed By: #### L 500.2500, L100.0100 ####[facility] [address] [place], [address] MCV (RBC) [Entitic vol] 94.0 fL Normal 80-94 [facility] Comment on above: Performed By: #### L 500.2500, L100.0100 ####[facility] [address] [place], [address] Monocytes/100 WBC (Bld) 6.8 % Normal 0-10 [facility] Comment on above: Performed By: #### L 500.2500, L100.0100 ####[facility] [address] [place], [address] Neutrophils/100 WBC (Bld) 79.5 % High 47-[address] [facility] Comment on above: Performed By: #### L 500.2500, L100.0100 ####[facility] [address] [place], [address] Nucleated RBC (Bld) [#/Vol] 0 10*3/uL Normal 0-[address] [facility] Comment on above: Performed By: #### L 500.2500, L100.0100 ####[facility] [address] [place], [address] Platelet mean volume (Bld) [Entitic vol] 10.4 fL Normal 6.2-12.[address] [facility] Comment on above: Performed By: #### L 500.2500, L100.0100 ####[facility] [address] [place], [address] Platelets (Bld) [#/Vol] 330 10*3/uL Normal 150-[address] [facility] Comment on above: Performed By: #### L 500.2500, L100.0100 ####[facility] [address] [place], [address] RBC (Bld) [#/Vol] 3.66 10*6/uL Low 4.6-6.2 [facility] Comment on above: Performed By: #### L 500.2500, L100.0100 ####[facility] [address] [place], [address] RDW SD 42.0 fl Normal 35.1-43.[address] [facility] Comment on above: Performed By: #### L 500.2500, L100.0100 ####[facility] [address] [place], [address] WBC (Bld) [#/Vol] 8.2 10*3/uL Normal 4.4-11.0 [facility] Comment on above: Performed By: #### L 500.2500, L100.0100 ####[facility] [address] [place], [address] Calcium [Mass/Vol]Ordered By : Rhys Fontana on 08-10-2024 Serum or plasma calcium measurement (mass/volume) 9.7 mg/dL 7.6-11.[address] [facility] Carbon dioxide, total [Moles /volume] in Central venous bloodOrdered By: Rhys Fontana on 08-10-2024 CO2 [Moles/Vol] 19.5 mmol/L Low 21.0-32.[address] [facility] Carbon dioxide, total [Moles/volume] in Central venous blood 19.5 mmol/L Low 21.0-32.[address] [facility] Chloride assayOrdered By: Jasmyne Fontana on 08-10-2024 Chloride [Moles/Vol] 107 mmol/L 98-108 [facility] Chloride assay 107 mmol/L 98-[address] [facility] Colonoscopy Reporton 025 Colonoscopy Report Normal [facility] Creatinine [Mass/Vol]Ordered By: Rhys Fontana on 08-10-2024 Serum creatinine measurement (mass/volume) 1.27 mg/dL High 0.70-1.[address] [facility] Electrocardiogram reportOrde red By: Christiano Steinberg on 08-10-2024 [address] [facility] Work Phone: [phone] Eosinophil percentageOrdered By: Rhys Fontana on 08-10-2024 Eosinophils/100 WBC (Bld) 4.4 % 0-[address] [facility] Eosinophil percentage 4.4 % 0-5 [facility] Erythrocyte distribution wid th (RBC) [Ratio]Ordered By: Rhys Fontana on 08-10-2024 Erythrocyte distribution width ratio 12.1 % 11.6-14.[address] [facility] Erythrocyte distribution width standard deviation 42.0 fl 35.1-43.[address] [facility] Erythrocyte distribution wid th ratioOrdered By: Rhys Fontana on 08-10-2024 Erythrocyte distribution width (RBC) [Ratio] 12.1 % 11.6-14.[address] [facility] Erythrocyte distribution wid th standard deviationOrdered By: Rhys Fontana on 08-10-2024 Erythrocyte distribution width (RBC) [Ratio] 42.0 fl 35.1-43.[address] [facility] Estimation of creatinine terry aranceOrdered By: Rhys Fontana on 08-10-2024 Estimation of creatinine clearance 39.96 ml/min Low 50-[address] [facility] GFR/1.73 sq M.predicted giorgi g non-blacks MDRD (S/P/Bld) [Vol rate/Area]Ordered By: Rhys Fontana on 08-10-2024 Glomerular filtration rate (GFR) estimation/1.73 sq m using serum, plasma, or whole b 57 Low >[address] [facility] Glomerular filtration rate ( GFR) estimation/1.73 sq m using serum, plasma, or whole bOrdered By: Rhys Fontana on 08-10-2024 GFR/1.73 sq M.predicted among non-blacks MDRD (S/P/Bld) [Vol rate/Area] 57 mL/min/{1.73_m2} Low >[address] [facility] Glucose [Mass/Vol]Ordered By : Rhys Fontana on 08-10-2024 Serum glucose measurement (mass/volume) 119 mg/dL High 70-[address] [facility] Hematocrit Auto (Bld) [Volum e fraction]Ordered By: Rhys Fontana on 08-10-2024 Hematocrit (Bld) [Volume fraction] 34.4 % Low 40-[address] [facility] Automated blood hematocrit (percentage) 34.4 % Low 40-[address] [facility] Hemoglobin measurementOrdere d By: Rhys Fontana on 08-10-2024 Hemoglobin (Bld) [Mass/Vol] 11.7 g/dL Low 13.0-16.[address] [facility] Hemoglobin measurement 11.7 g/dL Low 13.0-16.5 [facility] Immature granulocytes/100 WB C Auto (Bld)Ordered By: Rhys Fontana on 08-10-2024 Immature granulocytes/100 WBC (Bld) 0.200 % 0.0-0.[address] [facility] Automated immature granulocyte percentage 0.200 % 0.0-0.[address] [facility] Lymphocytes Auto (Unsp spec) [#/Vol]Ordered By: Rhys Fontana on 08-10-2024 Absolute lymphocyte count 0.66 X10^3/uL Low 0.83-4.[address] [facility] Lymphocytes/100 WBC Auto (Un sp spec)Ordered By: Rhys Fontana on 08-10-2024 Automated lymphocyte count as percentage of total leukocytes 8.1 % Low 19-[address] [facility] MCV (RBC) [Entitic vol]Order ed By: Rhys Fontana on 08-10-2024 MCV (mean corpuscular volume) determination 94.0 fL 80-[address] [facility] MCV (mean corpuscular volume ) determinationOrdered By: Rhys Fontana on 08-10-2024 MCV (RBC) [Entitic vol] 94.0 fL 80-94 [facility] MR/POSTOP.ANEon 08-10-2024 MR/POSTOP.ANE Normal [facility] MR/[id number] 08-10-2024 MR/POSTOPAN2 Normal [facility] Mean corpuscular hemoglobin (MCH) determinationOrdered By: Rhys Fontana on 08-10-2024 MCH (RBC) [Entitic mass] 32.0 pg 27.0-32.[address] [facility] Mean corpuscular hemoglobin (MCH) determination 32.0 pg 27.0-32.[address] [facility] Mean corpuscular hemoglobin concentration (MCHC) determinationOrdered By: Rhys Fontana on 08-10-2024 Mean corpuscular hemoglobin concentration (MCHC) determination 34.0 g/dL 32-[address] [facility] Mean platelet volume determi nationOrdered By: Rhys Fontana on 08-10-2024 Mean platelet volume determination 10.4 fl 6.2-12.[address] [facility] Monocyte percentageOrdered B y: Rhys Fontana on 08-10-2024 Monocytes/100 WBC (Bld) 6.8 % 0-10 [facility] Monocyte percentage 6.8 % 0-10 [facility] Neutrophil percentageOrdered By: Rhys Fontana on 08-10-2024 Neutrophils/100 WBC (Bld) 79.5 % High 47-[address] [facility] Neutrophil percentage 79.5 % High 47-70 [facility] Nucleated red blood cell per centageOrdered By: Rhys Fontana on 08-10-2024 Nucleated red blood cell percentage 0 % 0-[address] [facility] Platelet countOrdered By: Jasmyne Fontana on 08-10-2024 Platelets (Bld) [#/Vol] 330 10*3/uL 150-[address] [facility] Platelet count 330 K/mm3 150-[address] [facility] Potassium (Unsp spec) [Mass/ Vol]Ordered By: Rhys Fontana on 08-10-2024 Potassium measurement (mass/volume) 3.5 mmol/L 3.3-5.[address] [facility] Potassium measurement (mass/ volume)Ordered By: Rhys Fontana on 08-10-2024 Potassium (Unsp spec) [Mass/Vol] 3.5 mmol/L 3.3-5.[address] [facility] RBC Auto (Bld) [#/Vol]Ordere d By: Rhys Fnotana on 08-10-2024 RBC (Bld) [#/Vol] 3.66 10*6/uL Low 4.6-6.2 [facility] Automated blood erythrocyte count 3.66 M/mm3 Low 4.6-6.[address] [facility] Serum creatinine measurement (mass/volume)Ordered By: Rhys Fontana on 08-10-2024 Creatinine [Mass/Vol] 1.27 mg/dL High 0.70-1.20 [facility] Serum glucose measurement (m ass/volume)Ordered By: Rhys Fontana on 08-10-2024 Glucose [Mass/Vol] 119 mg/dL High 70-99 [facility] Serum or plasma calcium jenna urement (mass/volume)Ordered By: Rhys Fontana on 08-10-2024 Calcium [Mass/Vol] 9.7 mg/dL 7.6-11.0 [facility] Serum or plasma urea nitroge n measurement (mass/volume)Ordered By: Rhys Fontana on 08-10-2024 Urea nitrogen [Mass/Vol] 20 mg/dL High 08-[address] [facility] Sodium levelOrdered By: Ivan Fontana on 08-10-2024 Sodium [Moles/Vol] 140 mmol/L 133-145 [facility] Sodium level 140 mmol/L 133-[address] [facility] Surgery Specimen Level Vinayak 08-10-2024 Surgery Specimen Level IV Normal [facility] Comment on above: Performed By: #### P SUIV ####[facility] [address] [place], [place], [id number] Urea nitrogen [Mass/Vol]Orde red By: Rhys Fontana on 08-10-2024 Serum or plasma urea nitrogen measurement (mass/volume) 20 mg/dL High 08-[address] [facility] White blood cell (WBC) count Ordered By: Rhys Fontana on 08-10-2024 WBC (Bld) [#/Vol] 8.2 10*3/uL 4.4-11.0 [facility] White blood cell (WBC) count 8.2 K/mm3 4.4-11.[address] [facility] Absolute neutrophil countOrd ered By: Viral Gutiérrez on 08-09-2024 Absolute neutrophil count 5.9 X10^3/uL 2.0-7.[address] [facility] Activated partial thrombopla stin time (aPTT) in platelet poor plasma by coagulation aOrdered By: Viral Gutiérrez on 08-09-2024 aPTT Coag (PPP) [Time] 26.6 s 24.1-36.2 [facility] Anion gap [Moles/Vol]Ordered By: Viral Gutiérrez on 08-09-2024 Anion gap in Serum or Plasma 12 5-[address] [facility] BUN/creatinine ratioOrdered By: Viral Gutiérrez on 08-09-2024 BUN/creatinine ratio 16.9 RATIO 10-20 [facility] Basic Metabolic Profile (BMP )on 08-09-2024 BUN/CRE 16.9 RATIO Normal -[address] [facility] Comment on above: Performed By: #### L 500.2500, L100.0100, L300.4310, BTS, L300.3900 ####[facility] [address] [place], [address] Calcium [Mass/Vol] 9.8 mg/dL Normal 7.6-11.0 [facility] Comment on above: Performed By: #### L 500.2500, L100.0100, L300.4310, BTS, L300.3900 ####[facility] [address] [place], [address] Chloride [Moles/Vol] 103 mmol/L Normal 98-108 [facility] Comment on above: Performed By: #### L 500.2500, L100.0100, L300.4310, BTS, L300.3900 ####[facility] [address] [place], [address] CO2 [Moles/Vol] 21.6 mmol/L Normal 21.0-32.[address] [facility] Comment on above: Performed By: #### L 500.2500, L100.0100, L300.4310, BTS, L300.3900 ####[facility] [address] [place], [address] Creatinine [Mass/Vol] 1.44 mg/dL High 0.70-1.20 [facility] Comment on above: Performed By: #### L 500.2500, L100.0100, L300.4310, BTS, L300.3900 ####[facility] [address] [place], [address] ECRCL 34.23 ml/min Low 50-[address] [facility] Comment on above: Performed By: #### L 500.2500, L100.0100, L300.4310, BTS, L300.3900 ####[facility] [address] [place], [address] GAP 12 Normal 5-[address] [facility] Comment on above: Performed By: #### L 500.2500, L100.0100, L300.4310, BTS, L300.3900 ####[facility] [address] [place], [address] GFR/1.73 sq M.predicted among non-blacks MDRD (S/P/Bld) [Vol rate/Area] 49 mL/min/{1.73_m2} Low >[address] [facility] Comment on above: Result Comment: mL/m in/1.73m2 CKD-EPI Creatinine Equation (2020) Performed By: #### L 500.2500, L100.0100, L300.4310, BTS, L300.3900 ####[facility] [address] [place], [address] Glucose [Mass/Vol] 106 mg/dL High 70-99 [facility] Comment on above: Performed By: #### L 500.2500, L100.0100, L300.4310, BTS, L300.3900 ####[facility] [address] [place], [address] Potassium [Moles/Vol] 3.6 mmol/L Normal 3.3-5.1 [facility] Comment on above: Performed By: #### L 500.2500, L100.0100, L300.4310, BTS, L300.3900 ####[facility] [address] [place], [address] Sodium [Moles/Vol] 136 mmol/L Normal 133-145 [facility] Comment on above: Performed By: #### L 500.2500, L100.0100, L300.4310, BTS, L300.3900 ####[facility] [address] [place], [address] Urea nitrogen [Mass/Vol] 24 mg/dL High 4-[address] [facility] Comment on above: Performed By: #### L 500.2500, L100.0100, L300.4310, BTS, L300.3900 ####[facility] [address] [place], [address] Basophil percentageOrdered B y: Viral Marla on 08-09-2024 Basophil percentage 0.9 % 0-1 [facility] CBC W/Diff, Automatedon Absolute Lymph 0.90 X10 3/uL Normal 0.83-4.[address] [facility] Comment on above: Performed By: #### L 500.2500, L100.0100, L300.4310, BTS, L300.3900 ####[facility] [address] [place], [address] Absolute Neut 5.9 X10 3/uL Normal 2.0-7.[address] [facility] Comment on above: Performed By: #### L 500.2500, L100.0100, L300.4310, BTS, L300.3900 ####[facility] [address] [place], [address] Basophils/100 WBC (Bld) 0.9 % Normal 0-1 [facility] Comment on above: Performed By: #### L 500.2500, L100.0100, L300.4310, BTS, L300.3900 ####[facility] [address] [place], [address] Eosinophils/100 WBC (Bld) 4.8 % Normal 0-[address] [facility] Comment on above: Performed By: #### L 500.2500, L100.0100, L300.4310, BTS, L300.3900 ####[facility] [address] [place], [address] Erythrocyte distribution width (RBC) [Ratio] 12.1 % Normal 11.6-14.[address] [facility] Comment on above: Performed By: #### L 500.2500, L100.0100, L300.4310, BTS, L300.3900 ####[facility] [address] [place], [address] Hematocrit (Bld) [Volume fraction] 37.9 % Low 40-[address] [facility] Comment on above: Performed By: #### L 500.2500, L100.0100, L300.4310, BTS, L300.3900 ####[facility] [address] [place], [address] Hemoglobin (Bld) [Mass/Vol] 12.9 g/dL Low 13.0-16.[address] [facility] Comment on above: Performed By: #### L 500.2500, L100.0100, L300.4310, BTS, L300.3900 ####[facility] [address] [place], [address] IG% 0.400 Normal 0.0-0.[address] [facility] Comment on above: Result Comment: IG% - Immature Granulocytes (promyelocytes, myelocytes andmetamyelocytes) > 1% indicates that a LEFT SHIFT is Present. Performed By: #### L 500.2500, L100.0100, L300.4310, BTS, L300.3900 ####[facility] [address] [place], [address] Lymphocytes/100 WBC (Bld) 11.4 % Low 19-[address] [facility] Comment on above: Performed By: #### L 500.2500, L100.0100, L300.4310, BTS, L300.3900 ####[facility] [address] [place], [address] MCH (RBC) [Entitic mass] 32.2 pg High 27.0-32.[address] [facility] Comment on above: Performed By: #### L 500.2500, L100.0100, L300.4310, BTS, L300.3900 ####[facility] [address] [place], [address] MCHC (RBC) [Mass/Vol] 34.0 g/dL Normal 32-36 [facility] Comment on above: Performed By: #### L 500.2500, L100.0100, L300.4310, BTS, L300.3900 ####[facility] [address] [place], [address] MCV (RBC) [Entitic vol] 94.5 fL High 80-94 [facility] Comment on above: Performed By: #### L 500.2500, L100.0100, L300.4310, BTS, L300.3900 ####[facility] [address] [place], [address] Monocytes/100 WBC (Bld) 7.6 % Normal 0-10 [facility] Comment on above: Performed By: #### L 500.2500, L100.0100, L300.4310, BTS, L300.3900 ####[facility] [address] [place], [address] Neutrophils/100 WBC (Bld) 74.9 % High 47-[address] [facility] Comment on above: Performed By: #### L 500.2500, L100.0100, L300.4310, BTS, L300.3900 ####[facility] [address] [place], [address] Nucleated RBC (Bld) [#/Vol] 0 10*3/uL Normal 0-[address] [facility] Comment on above: Performed By: #### L 500.2500, L100.0100, L300.4310, BTS, L300.3900 ####[facility] [address] [place], [address] Platelet mean volume (Bld) [Entitic vol] 10.1 fL Normal 6.2-12.[address] [facility] Comment on above: Performed By: #### L 500.2500, L100.0100, L300.4310, BTS, L300.3900 ####[facility] [address] [place], [address] Platelets (Bld) [#/Vol] 340 10*3/uL Normal 150-[address] [facility] Comment on above: Performed By: #### L 500.2500, L100.0100, L300.4310, BTS, L300.3900 ####[facility] [address] [place], [address] RBC (Bld) [#/Vol] 4.01 10*6/uL Low 4.6-6.2 [facility] Comment on above: Performed By: #### L 500.2500, L100.0100, L300.4310, BTS, L300.3900 ####[facility] [address] [place], [address] RDW SD 42.2 fl Normal 35.1-43.[address] [facility] Comment on above: Performed By: #### L 500.2500, L100.0100, L300.4310, BTS, L300.3900 ####[facility] [address] [place], [address] WBC (Bld) [#/Vol] 7.9 10*3/uL Normal 4.4-11.0 [facility] Comment on above: Performed By: #### L 500.2500, L100.0100, L300.4310, BTS, L300.3900 ####[facility] [address] [place], [address] Calcium [Mass/Vol]Ordered By : Viral Gutiérrez on 08-09-2024 Serum or plasma calcium measurement (mass/volume) 9.8 mg/dL 7.6-11.[address] [facility] Carbon dioxide, total [Moles /volume] in Central venous bloodOrdered By: Viral Gutiérrez on 08-09-2024 Carbon dioxide, total [Moles/volume] in Central venous blood 21.6 mmol/L 21.0-32.[address] [facility] Chloride assayOrdered By: Arun Gutiérrez on 08-09-2024 Chloride assay 103 mmol/L 98-[address] [facility] Creatinine [Mass/Vol]Ordered By: Viral Gutiérrez on 08-09-2024 Serum creatinine measurement (mass/volume) 1.44 mg/dL High 0.70-1.[address] [facility] Emergency Department Summary on 08-09-2024 Emergency Department Summary Normal [facility] Eosinophil percentageOrdered By: Viral Gutiérrez on 08-09-2024 Eosinophil percentage 4.8 % 0-5 [facility] Erythrocyte distribution wid th (RBC) [Ratio]Ordered By: Viral Gutiérrez on 08-09-2024 Erythrocyte distribution width ratio 12.1 % 11.6-14.[address] [facility] Erythrocyte distribution width standard deviation 42.2 fl 35.1-43.[address] [facility] Estimation of creatinine terry aranceOrdered By: Viral Gutiérrez on 08-09-2024 Estimation of creatinine clearance 34.23 ml/min Low 50-[address] [facility] GFR/1.73 sq M.predicted giorgi g non-blacks MDRD (S/P/Bld) [Vol rate/Area]Ordered By: Viral Gutiérrez on 08-09-2024 Glomerular filtration rate (GFR) estimation/1.73 sq m using serum, plasma, or whole b 49 Low >[address] [facility] Glucose [Mass/Vol]Ordered By : Viral Gutiérrez on 08-09-2024 Serum glucose measurement (mass/volume) 106 mg/dL High 70-[address] [facility] H AND P Exam - [place] 08-09-2024 H&P Exam - Hospitalist Normal [facility] Hematocrit Auto (Bld) [Volum e fraction]Ordered By: Viral Gutiérrez on 08-09-2024 Automated blood hematocrit (percentage) 37.9 % Low 40-[address] [facility] Hemoglobin measurementOrdere d By: Viral Gutiérrez on 08-09-2024 Hemoglobin measurement 12.9 g/dL Low 13.0-16.5 [facility] Immature granulocytes/100 WB C Auto (Bld)Ordered By: Viral Gutiérrez on 08-09-2024 Automated immature granulocyte percentage 0.400 % 0.0-0.[address] [facility] International normalized rat io (INR) calculationOrdered By: Viral Gutiérrez on 08-09-2024 International normalized ratio (INR) calculation 1.[address] [facility] Lymphocytes Auto (Unsp spec) [#/Vol]Ordered By: Viral Gutiérrez on 08-09-2024 Absolute lymphocyte count 0.90 X10^3/uL 0.83-4.[address] [facility] Lymphocytes/100 WBC Auto (Un sp spec)Ordered By: Viral Gutiérrez on 08-09-2024 Automated lymphocyte count as percentage of total leukocytes 11.4 % Low 19-[address] [facility] MCV (RBC) [Entitic vol]Order ed By: Viral Gutiérrez on 08-09-2024 MCV (mean corpuscular volume) determination 94.5 fL High 80-[address] [facility] MR/CON.PCM.GIon 08-09-2024 MR/CON.PCM.GI Normal [facility] Mean corpuscular hemoglobin (MCH) determinationOrdered By: Viral Gutiérrez on 08-09-2024 Mean corpuscular hemoglobin (MCH) determination 32.2 pg High 27.0-32.[address] [facility] Mean corpuscular hemoglobin concentration (MCHC) determinationOrdered By: Viral Gutiérrez on 08-09-2024 Mean corpuscular hemoglobin concentration (MCHC) determination 34.0 g/dL 32-[address] [facility] Mean platelet volume determi nationOrdered By: Viral Le on 08-09-2024 Mean platelet volume determination 10.1 fl 6.2-12.[address] [facility] Monocyte percentageOrdered B y: Viral Le on 08-09-2024 Monocyte percentage 7.6 % 0-10 [facility] Neutrophil percentageOrdered By: Viral Le on 08-09-2024 Neutrophil percentage 74.9 % High 47-70 [facility] Nucleated red blood cell per centageOrdered By: Viral Gutiérrez on 08-09-2024 Nucleated red blood cell percentage 0 % 0-[address] [facility] Partial Thromboplast Timeon 08-09-2024 aPTT Coag (Bld) [Time] 26.6 s Normal 24.1-36.2 [facility] Comment on above: Performed By: #### L 500.2500, L100.0100, L300.4310, BTS, L300.3900 ####[facility] [address] [place], [place], [id number] Platelet countOrdered By: Arun Gutiérrez on 08-09-2024 Platelet count 340 K/mm3 150-[address] [facility] Potassium (Unsp spec) [Mass/ Vol]Ordered By: Viral Le on 08-09-2024 Potassium measurement (mass/volume) 3.6 mmol/L 3.3-5.[address] [facility] Prothrombin Time w/INRon INR Coag (PPP) [Relative time] 1.1 {INR} Normal [facility] Comment on above: Performed By: #### L 500.2500, L100.0100, L300.4310, BTS, L300.3900 ####[facility] [address] [place], [address] Prothrombin timeOrdered By: Viral Le on 08-09-2024 PT Coag (PPP) [Time] 14.0 s Normal 11.7-14.9 [facility] Comment on above: Performed By: #### L 500.2500, L100.0100, L300.4310, BTS, L300.3900 ####[facility] [address] [place], [place], [id number] Prothrombin time 14.0 SECONDS 11.7-14.9 [facility] RBC Auto (Bld) [#/Vol]Ordere d By: Viral Gutiérrez on 08-09-2024 Automated blood erythrocyte count 4.01 M/mm3 Low 4.6-6.[address] [facility] Sodium levelOrdered By: Viral Gutiérrez on 08-09-2024 Sodium level 136 mmol/L 133-[address] [facility] Type AND Screenon 08-09-2024 ABO and Rh group Nom (Bld) Blood group O Rh(D) positive Normal [facility] Comment on above: Order Comment: HGI Performed By: #### L 500.2500, L100.0100, L300.4310, BTS, L300.3900 ####[facility] [address] [place], [place], [id number] Urea nitrogen [Mass/Vol]Orde red By: Viral Gutiérrez on 08-09-2024 Serum or plasma urea nitrogen measurement (mass/volume) 24 mg/dL High 4-[address] [facility] White blood cell (WBC) count Ordered By: Viral Gutiérrez on 08-09-2024 White blood cell (WBC) count 7.9 K/mm3 4.4-11.[address] [facility] aPTT Coag (PPP) [Time]Ordere d By: Viral Gutiérrez on 08-09-2024 Activated partial thromboplastin time (aPTT) in platelet poor plasma by coagulation a 26.6 Seconds 24.1-36.[address] [facility] ALP [Catalytic activity/Vol] Ordered By: Addy Luciano on 08-03-2024 Serum or plasma alkaline phosphatase measurement 65 U/L 40-[address] [facility] ALT [Catalytic activity/Vol] Ordered By: Addy Beam on 08-03-2024 Serum or plasma alanine aminotransferase (ALT) measurement 21 U/L <[address] [facility] Albumin [Mass/Vol]Ordered By : Addy Luciano on 08-03-2024 Serum or plasma albumin measurement (mass/volume) 4.1 g/dL 3.4-4.[address] [facility] Albumin/Globulin [Mass ratio ]Ordered By: Addy Luciano on 08-03-2024 Serum or plasma albumin/globulin mass ratio 2.1 RATIO 0.9-2.[address] [facility] Anion gap [Moles/Vol]Ordered By: Addy Luciano on 08-03-2024 Anion gap in Serum or Plasma 11 5-[address] [facility] Anion gap in Serum or Plasma Ordered By: Addy Luciano on 08-03-2024 Anion gap [Moles/Vol] 11 mmol/L - [facility] BUN/creatinine ratioOrdered By: Addy Luciano on 08-03-2024 Urea nitrogen/Creatinine [Mass ratio] 11.4 mg/mg - [facility] BUN/creatinine ratio 11.4 RATIO - [facility] Bilirubin, totalOrdered By: Addy Luciano on 08-03-2024 Bilirubin [Mass/Vol] 0.52 mg/dL 0.00-1.30 [facility] Bilirubin, total 0.52 mg/dL 0.00-1.[address] [facility] Calcium [Mass/Vol]Ordered By : Addy Luciano on 08-03-2024 Serum or plasma calcium measurement (mass/volume) 9.8 mg/dL 7.6-11.[address] [facility] Carbon dioxide, total [Moles /volume] in Central venous bloodOrdered By: Addy Luciano on 08-03-2024 CO2 [Moles/Vol] 24.5 mmol/L 21.0-32.[address] [facility] Carbon dioxide, total [Moles/volume] in Central venous blood 24.5 mmol/L 21.0-32.[address] [facility] Chloride assayOrdered By: Javier Luciano on 08-03-2024 Chloride [Moles/Vol] 106 mmol/L 98-108 [facility] Chloride assay 106 mmol/L 98-[address] [facility] Comprehensive Metabolic Prof ilon 08-03-2024 Albumin [Mass/Vol] 4.1 g/dL Normal 3.4-4.8 [facility] Comment on above: Performed By: #### L 229.6922 ####[facility] [address] [place], [address] Albumin/Globulin [Mass ratio] 2.1 {ratio} Normal 0.9-2.[address] [facility] Comment on above: Performed By: #### L 500.4050 ####[facility] [address] [place], [address] ALK PHOS 65 U/L Normal 40-[address] [facility] Comment on above: Performed By: #### L 500.4050 ####[facility] [address] [place], [address] ALT [Catalytic activity/Vol] 21 U/L Normal <=[address] [facility] Comment on above: Performed By: #### L 500.4050 ####[facility] [address] [place], [address] AST [Catalytic activity/Vol] 24 U/L Normal <=[address] [facility] Comment on above: Performed By: #### L 500.4050 ####[facility] [address] [place], [address] Bilirubin [Mass/Vol] 0.52 mg/dL Normal 0.00-1.30 [facility] Comment on above: Performed By: #### L 500.4050 ####[facility] [address] [place], [address] BUN/CRE 11.4 RATIO Normal 10-[address] [facility] Comment on above: Performed By: #### L 500.4050 ####[facility] [address] [place], [address] Calcium [Mass/Vol] 9.8 mg/dL Normal 7.6-11.0 [facility] Comment on above: Performed By: #### L 500.4050 ####[facility] [address] [place], [address] Chloride [Moles/Vol] 106 mmol/L Normal 98-108 [facility] Comment on above: Performed By: #### L 500.4050 ####[facility] [address] [place], [address] CO2 [Moles/Vol] 24.5 mmol/L Normal 21.0-32.[address] [facility] Comment on above: Performed By: #### L 500.4050 ####[facility] [address] [place], [address] Creatinine [Mass/Vol] 1.31 mg/dL High 0.70-1.20 [facility] Comment on above: Performed By: #### L 500.4050 ####[facility] [address] [place], [address] GAP 11 Normal 5-[address] [facility] Comment on above: Performed By: #### L 500.4050 ####[facility] [address] [place], [address] GFR/1.73 sq M.predicted among non-blacks MDRD (S/P/Bld) [Vol rate/Area] 55 mL/min/{1.73_m2} Low >[address] [facility] Comment on above: Result Comment: mL/m in/1.73m2 CKD-EPI Creatinine Equation (2020) Performed By: #### L 500.4050 ####[facility] [address] [place], [address] Globulin (S) [Mass/Vol] 1.9 g/dL Low 2.2-4.2 [facility] Comment on above: Performed By: #### L 500.4050 ####[facility] [address] [place], [address] Glucose [Mass/Vol] 103 mg/dL High 70-99 [facility] Comment on above: Performed By: #### L 500.4050 ####[facility] [address] [place], [address] Potassium [Moles/Vol] 4.1 mmol/L Normal 3.3-5.1 [facility] Comment on above: Performed By: #### L 500.4050 ####[facility] [address] [place], [address] Sodium [Moles/Vol] 141 mmol/L Normal 133-145 [facility] Comment on above: Performed By: #### L 500.4050 ####[facility] [address] [place], [address] T PROT 6.0 g/dL Normal 5.9-8.[address] [facility] Comment on above: Performed By: #### L 500.4050 ####[facility] [address] [place], [address] Urea nitrogen [Mass/Vol] 15 mg/dL Normal 4-[address] [facility] Comment on above: Performed By: #### L 500.4050 ####[facility] [address] [place], [address] Creatinine [Mass/Vol]Ordered By: Addy Luciano on 08-03-2024 Serum creatinine measurement (mass/volume) 1.31 mg/dL High 0.70-1.[address] [facility] GFR/1.73 sq M.predicted giorgi g non-blacks MDRD (S/P/Bld) [Vol rate/Area]Ordered By: Marcelalun Beam on 08-03-2024 Glomerular filtration rate (GFR) estimation/1.73 sq m using serum, plasma, or whole b 55 Low >[address] [facility] Glomerular filtration rate ( GFR) estimation/1.73 sq m using serum, plasma, or whole bOrdered By: Marcelalun Beam on 08-03-2024 GFR/1.73 sq M.predicted among non-blacks MDRD (S/P/Bld) [Vol rate/Area] 55 mL/min/{1.73_m2} Low >[address] [facility] Glucose [Mass/Vol]Ordered By : Addy Luciano on 08-03-2024 Serum glucose measurement (mass/volume) 103 mg/dL High 70-[address] [facility] No Panel InformationOrdered By: Addy Luciano on 08-03-2024 24 U/L <[address] [facility] Potassium (Unsp spec) [Mass/ Vol]Ordered By: Addy Luciano on 08-03-2024 Potassium measurement (mass/volume) 4.1 mmol/L 3.3-5.[address] [facility] Potassium measurement (mass/ volume)Ordered By: Addy Luciano on 08-03-2024 Potassium (Unsp spec) [Mass/Vol] 4.1 mmol/L 3.3-5.[address] [facility] Serum creatinine measurement (mass/volume)Ordered By: Addy Luciano on 08-03-2024 Creatinine [Mass/Vol] 1.31 mg/dL High 0.70-1.20 [facility] Serum globulin measurementOr dered By: Addy Luciano on 08-03-2024 Globulin (S) [Mass/Vol] 1.9 g/dL Low 2.2-4.2 [facility] Serum globulin measurement 1.9 g/dL Low 2.2-4.[address] [facility] Serum glucose measurement (m ass/volume)Ordered By: Addy Luciano on 08-03-2024 Glucose [Mass/Vol] 103 mg/dL High 70-99 [facility] Serum or plasma alanine ugalde otransferase (ALT) measurementOrdered By: Addy Luciano on 08-03-2024 ALT [Catalytic activity/Vol] 21 U/L <[address] [facility] Serum or plasma albumin jenna urement (mass/volume)Ordered By: Addy Luciano on 08-03-2024 Albumin [Mass/Vol] 4.1 g/dL 3.4-4.8 [facility] Serum or plasma albumin/glob ulin mass ratioOrdered By: Addy Luciano on 08-03-2024 Albumin/Globulin [Mass ratio] 2.1 {ratio} 0.9-2.[address] [facility] Serum or plasma alkaline melida sphatase measurementOrdered By: Addy Beam on 08-03-2024 ALP [Catalytic activity/Vol] 65 U/L 40-[address] [facility] Serum or plasma calcium jenna urement (mass/volume)Ordered By: Zebulun Beam on 08-03-2024 Calcium [Mass/Vol] 9.8 mg/dL 7.6-11.0 [facility] Serum or plasma urea nitroge n measurement (mass/volume)Ordered By: Zebulun Beam on 08-03-2024 Urea nitrogen [Mass/Vol] 15 mg/dL 08-[address] [facility] Sodium levelOrdered By: Javierbu evgeny Beam on 08-03-2024 Sodium [Moles/Vol] 141 mmol/L 133-145 [facility] Sodium level 141 mmol/L 133-[address] [facility] Total proteinOrdered By: Dharmesh ulun Beam on 08-03-2024 Protein [Mass/Vol] 6.0 g/dL 5.9-8.4 [facility] Total protein 6.0 g/dL 5.9-8.[address] [facility] Urea nitrogen [Mass/Vol]Orde red By: Javierbulun Beam on 08-03-2024 Serum or plasma urea nitrogen measurement (mass/volume) 15 mg/dL 08-[address] [facility] Absolute lymphocyte countOrd ered By: Nanette Macdonald on 08-02-2024 Lymphocytes Auto (Unsp spec) [#/Vol] 0.92 10*3/uL 0.83-4.[address] [facility] Absolute neutrophil countOrd ered By: Nanette Macdonald on 08-02-2024 Absolute neutrophil count 4.7 X10^3/uL 2.0-7.[address] [facility] Automated blood erythrocyte countOrdered By: Nanette Macdonald on 08-02-2024 RBC (Bld) [#/Vol] 3.96 10*6/uL Low 4.6-6.2 [facility] Comment on above: Performed By: #### L 100.0100 ####[facility] [address] [place], [address] Automated blood hematocrit ( percentage)Ordered By: Nanette Macdonald on 08-02-2024 Hematocrit (Bld) [Volume fraction] 37.9 % Low 40-[address] [facility] Comment on above: Performed By: #### L 100.0100 ####[facility] [address] [place], [address] Automated lymphocyte count a s percentage of total leukocytesOrdered By: Nanette Macdonald on 08-02-2024 Lymphocytes/100 WBC Auto (Unsp spec) 13.5 % Low 19-[address] [facility] Basophil percentageOrdered B y: Nanette Macdonald on 08-02-2024 Basophils/100 WBC (Bld) 1.0 % Normal 0-1 [facility] Comment on above: Performed By: #### L 100.0100 ####[facility] [address] [place], [address] Basophil percentage 1.0 % 0-1 [facility] CBC W/Diff, Automatedon 04-0 Absolute Lymph 0.92 X10 3/uL Normal 0.83-4.[address] [facility] Comment on above: Performed By: #### L 100.0100 ####[facility] [address] [place], [address] Absolute Neut 4.7 X10 3/uL Normal 2.0-7.[address] [facility] Comment on above: Performed By: #### L 100.0100 ####[facility] [address] [place], [address] IG% 0.100 Normal 0.0-0.[address] [facility] Comment on above: Result Comment: IG% - Immature Granulocytes (promyelocytes, myelocytes andmetamyelocytes) > 1% indicates that a LEFT SHIFT is Present. Performed By: #### L 100.0100 ####[facility] [address] [place], [address] Lymphocytes/100 WBC (Bld) 13.5 % Low 19-[address] [facility] Comment on above: Performed By: #### L 100.0100 ####[facility] [address] [place], [address] MCHC (RBC) [Mass/Vol] 33.5 g/dL Normal 32-36 [facility] Comment on above: Performed By: #### L 100.0100 ####[facility] [address] [place], [address] Nucleated RBC (Bld) [#/Vol] 0 10*3/uL Normal 0-[address] [facility] Comment on above: Performed By: #### L 100.0100 ####[facility] [address] [place], [address] Platelet mean volume (Bld) [Entitic vol] 10.3 fL Normal 6.2-12.[address] [facility] Comment on above: Performed By: #### L 100.0100 ####[facility] [address] [place], [address] RDW SD 43.5 fl Normal 35.1-43.[address] [facility] Comment on above: Performed By: #### L 100.0100 ####[facility] [address] [place], [address] Eosinophil percentageOrdered By: Nnaette Macdonald on 08-02-2024 Eosinophils/100 WBC (Bld) 9.4 % High 0-[address] [facility] Comment on above: Performed By: #### L 100.0100 ####[facility] [address] [place], [address] Eosinophil percentage 9.4 % High 0-5 [facility] Erythrocyte distribution wid th (RBC) [Ratio]Ordered By: Nanette Macdonald on 08-02-2024 Erythrocyte distribution width ratio 12.5 % 11.6-14.[address] [facility] Erythrocyte distribution width standard deviation 43.5 fl 35.1-43.[address] [facility] Erythrocyte distribution wid th ratioOrdered By: Nanette Macdonald on 08-02-2024 Erythrocyte distribution width (RBC) [Ratio] 12.5 % Normal 11.6-14.[address] [facility] Comment on above: Performed By: #### L 100.0100 ####[facility] [address] [place], [place], [id number] Erythrocyte distribution wid th standard deviationOrdered By: Nanette Macdonald on 08-02-2024 Erythrocyte distribution width (RBC) [Ratio] 43.5 fl 35.1-43.[address] [facility] Gastroenterology Visit Repor ton 08-02-2024 Gastroenterology Visit Report Normal [facility] Hematocrit Auto (Bld) [Volum e fraction]Ordered By: Nanette Macdonald on 08-02-2024 Automated blood hematocrit (percentage) 37.9 % Low 40-[address] [facility] Hemoglobin measurementOrdere d By: Nanette Macdonald on 08-02-2024 Hemoglobin (Bld) [Mass/Vol] 12.7 g/dL Low 13.0-16.[address] [facility] Comment on above: Performed By: #### L 100.0100 ####[facility] [address] [place], [place], [id number] Hemoglobin measurement 12.7 g/dL Low 13.0-16.5 [facility] Immature granulocytes/100 WB C Auto (Bld)Ordered By: Nanette Macdonald on 08-02-2024 Immature granulocytes/100 WBC (Bld) 0.100 % 0.0-0.[address] [facility] Automated immature granulocyte percentage 0.100 % 0.0-0.[address] [facility] Lymphocytes Auto (Unsp spec) [#/Vol]Ordered By: Nanette Macdonald on 08-02-2024 Absolute lymphocyte count 0.92 X10^3/uL 0.83-4.[address] [facility] Lymphocytes/100 WBC Auto (Un sp spec)Ordered By: Nanette Macdonald on 08-02-2024 Automated lymphocyte count as percentage of total leukocytes 13.5 % Low 19-[address] [facility] MCV (RBC) [Entitic vol]Order ed By: Nanette Macdonald on 08-02-2024 MCV (mean corpuscular volume) determination 95.7 fL High 80-[address] [facility] MCV (mean corpuscular volume ) determinationOrdered By: Nanette Macdonald on 08-02-2024 MCV (RBC) [Entitic vol] 95.7 fL High 80-94 [facility] Comment on above: Performed By: #### L 100.0100 ####[facility] [address] [place], [address] Mean corpuscular hemoglobin (MCH) determinationOrdered By: Nanette Macdonald on 08-02-2024 MCH (RBC) [Entitic mass] 32.1 pg High 27.0-32.[address] [facility] Comment on above: Performed By: #### L 100.0100 ####[facility] [address] [place], [address] Mean corpuscular hemoglobin (MCH) determination 32.1 pg High 27.0-32.[address] [facility] Mean corpuscular hemoglobin concentration (MCHC) determinationOrdered By: Nanette Macdonald on 08-02-2024 Mean corpuscular hemoglobin concentration (MCHC) determination 33.5 g/dL 32-[address] [facility] Mean platelet volume determi nationOrdered By: Nanette Macdonald on 08-02-2024 Mean platelet volume determination 10.3 fl 6.2-12.[address] [facility] Monocyte percentageOrdered B y: Nanette Macdonald on 08-02-2024 Monocytes/100 WBC (Bld) 6.9 % Normal 0-10 [facility] Comment on above: Performed By: #### L 100.0100 ####[facility] [address] [place], [address] Monocyte percentage 6.9 % 0-10 [facility] Neutrophil percentageOrdered By: Nanette Macdonald on 08-02-2024 Neutrophils/100 WBC (Bld) 69.1 % Normal 47-[address] [facility] Comment on above: Performed By: #### L 100.0100 ####[facility] [address] [place], [address] Neutrophil percentage 69.1 % 47-70 [facility] Nucleated red blood cell per centageOrdered By: Nanette Macdonald on 08-02-2024 Nucleated red blood cell percentage 0 % 0-[address] [facility] Platelet countOrdered By: Serjio Macdonald on 08-02-2024 Platelets (Bld) [#/Vol] 315 10*3/uL Normal 150-[address] [facility] Comment on above: Performed By: #### L 100.0100 ####[facility] [id number] [place], [address] Platelet count 315 K/mm3 150-[address] [facility] RBC Auto (Bld) [#/Vol]Ordere d By: Nanette Macdonald on 08-02-2024 Automated blood erythrocyte count 3.96 M/mm3 Low 4.6-6.[address] [facility] White blood cell (WBC) count Ordered By: Nanette Macdonald on 08-02-2024 WBC (Bld) [#/Vol] 6.8 10*3/uL Normal 4.4-11.0 [facility] Comment on above: Performed By: #### L 100.0100 ####[facility] [address] [facility] [place], [address] White blood cell (WBC) count 6.8 K/mm3 4.4-11.[address] [facility] ALP [Catalytic activity/Vol] Ordered By: Tiki Saldivar on 07-28-2024 Serum or plasma alkaline phosphatase measurement 65 U/L 40-[address] [facility] ALT [Catalytic activity/Vol] Ordered By: Tiki Saldivar on 07-28-2024 Serum or plasma alanine aminotransferase (ALT) measurement 15 U/L <[address] [facility] Absolute lymphocyte countOrd ered By: Tiki Saldivar on 07-28-2024 Lymphocytes Auto (Unsp spec) [#/Vol] 0.98 10*3/uL 0.83-4.[address] [facility] Absolute neutrophil countOrd ered By: Tiki Saldivar on 07-28-2024 Absolute neutrophil count 5.4 X10^3/uL 2.0-7.[address] [facility] Albumin [Mass/Vol]Ordered By : Tiki Saldivar on 07-28-2024 Serum or plasma albumin measurement (mass/volume) 3.9 g/dL 3.4-4.[address] [facility] Albumin/Globulin [Mass ratio ]Ordered By: Tiki Saldivar on 07-28-2024 Serum or plasma albumin/globulin mass ratio 2.2 RATIO 0.9-2.[address] [facility] Anion gap [Moles/Vol]Ordered By: Tiki Saldivar on 07-28-2024 Anion gap in Serum or Plasma 12 5-[address] [facility] Anion gap in Serum or Plasma Ordered By: Tiki Saldivar on 07-28-2024 Anion gap [Moles/Vol] 12 mmol/L 5- [facility] Automated lymphocyte count a s percentage of total leukocytesOrdered By: Tiki Saldivar on 07-28-2024 Lymphocytes/100 WBC Auto (Unsp spec) 12.7 % Low 19-[address] [facility] BUN/creatinine ratioOrdered By: Tiki Saldivar on 07-28-2024 Urea nitrogen/Creatinine [Mass ratio] 15.5 mg/mg 10-[address] [facility] BUN/creatinine ratio 15.5 RATIO 10-20 [facility] Basophil percentageOrdered B y: Tiki Saldivar on 07-28-2024 Basophils/100 WBC (Bld) 1.2 % High 0-1 [facility] Basophil percentage 1.2 % High 0-1 [facility] Bedside Glucoseon 07-28-2024 FINGERSTICK GLU 129 mg/dL High 74-[address] [facility] Comment on above: Result Comment: XU CHOWDARYENT OF PATIENT CARE PER NURSING PROTOCOL Performed By: #### L 501.080 ####[facility] [address] [place], [place], [id number] FINGERSTICK GLU 94 mg/dL Normal 74-[address] [facility] Comment on above: Result Comment: XU CHOWDARYENT OF PATIENT CARE PER NURSING PROTOCOL Performed By: #### L 501.080 ####[facility] [address] [place], [place], [id number] Bilirubin, totalOrdered By: Tiki Saldivar on 07-28-2024 Bilirubin [Mass/Vol] 0.73 mg/dL 0.00-1.30 [facility] Bilirubin, total 0.73 mg/dL 0.00-1.[address] [facility] CBC W/Diff, Automatedon 07-02 Absolute Lymph 0.98 X10 3/uL Normal 0.83-4.[address] [facility] Comment on above: Performed By: #### L 300.3900, L501.9520, L100.0100, L500.4050, L501.5200 ####[facility] [address] [place], [address] Absolute Neut 5.4 X10 3/uL Normal 2.0-7.[address] [facility] Comment on above: Performed By: #### L 300.3900, L501.9520, L100.0100, L500.4050, L501.5200 ####[facility] [address] [place], [address] Basophils/100 WBC (Bld) 1.2 % High 0-1 [facility] Comment on above: Performed By: #### L 300.3900, L501.9520, L100.0100, L500.4050, L501.5200 ####[facility] [address] [place], [address] Eosinophils/100 WBC (Bld) 6.6 % High 0-[address] [facility] Comment on above: Performed By: #### L 300.3900, L501.9520, L100.0100, L500.4050, L501.5200 ####[facility] [address] [place], [address] Erythrocyte distribution width (RBC) [Ratio] 12.4 % Normal 11.6-14.[address] [facility] Comment on above: Performed By: #### L 300.3900, L501.9520, L100.0100, L500.4050, L501.5200 ####[facility] [address] [place], [address] Hematocrit (Bld) [Volume fraction] 35.9 % Low 40-[address] [facility] Comment on above: Performed By: #### L 300.3900, L501.9520, L100.0100, L500.4050, L501.5200 ####[facility] [address] [place], [address] Hemoglobin (Bld) [Mass/Vol] 12.6 g/dL Low 13.0-16.[address] [facility] Comment on above: Performed By: #### L 300.3900, L501.9520, L100.0100, L500.4050, L501.5200 ####[facility] [address] [place], [address] IG% 0.400 Normal 0.0-0.[address] [facility] Comment on above: Result Comment: IG% - Immature Granulocytes (promyelocytes, myelocytes andmetamyelocytes) > 1% indicates that a LEFT SHIFT is Present. Performed By: #### L 300.3900, L501.9520, L100.0100, L500.4050, L501.5200 ####[facility] [address] [place], [address] Lymphocytes/100 WBC (Bld) 12.7 % Low 19-[address] [facility] Comment on above: Performed By: #### L 300.3900, L501.9520, L100.0100, L500.4050, L501.5200 ####[facility] [address] [place], [address] MCH (RBC) [Entitic mass] 32.6 pg High 27.0-32.[address] [facility] Comment on above: Performed By: #### L 300.3900, L501.9520, L100.0100, L500.4050, L501.5200 ####[facility] [address] [place], [address] MCHC (RBC) [Mass/Vol] 35.1 g/dL Normal 32-36 [facility] Comment on above: Performed By: #### L 300.3900, L501.9520, L100.0100, L500.4050, L501.5200 ####[facility] [address] [place], [address] MCV (RBC) [Entitic vol] 93.0 fL Normal 80-94 [facility] Comment on above: Performed By: #### L 300.3900, L501.9520, L100.0100, L500.4050, L501.5200 ####[facility] [address] [place], [address] Monocytes/100 WBC (Bld) 8.7 % Normal 0-10 [facility] Comment on above: Performed By: #### L 300.3900, L501.9520, L100.0100, L500.4050, L501.5200 ####[facility] [address] [place], [address] Neutrophils/100 WBC (Bld) 70.4 % High 47-[address] [facility] Comment on above: Performed By: #### L 300.3900, L501.9520, L100.0100, L500.4050, L501.5200 ####[facility] [address] [place], [address] Nucleated RBC (Bld) [#/Vol] 0 10*3/uL Normal 0-[address] [facility] Comment on above: Performed By: #### L 300.3900, L501.9520, L100.0100, L500.4050, L501.5200 ####[facility] [address] [place], [address] Platelet mean volume (Bld) [Entitic vol] 9.9 fL Normal 6.2-12.[address] [facility] Comment on above: Performed By: #### L 300.3900, L501.9520, L100.0100, L500.4050, L501.5200 ####[facility] [address] [place], [address] Platelets (Bld) [#/Vol] 323 10*3/uL Normal 150-[address] [facility] Comment on above: Performed By: #### L 300.3900, L501.9520, L100.0100, L500.4050, L501.5200 ####[facility] [address] [place], [address] RBC (Bld) [#/Vol] 3.86 10*6/uL Low 4.6-6.2 [facility] Comment on above: Performed By: #### L 300.3900, L501.9520, L100.0100, L500.4050, L501.5200 ####[facility] [address] [place], [address] RDW SD 42.3 fl Normal 35.1-43.[address] [facility] Comment on above: Performed By: #### L 300.3900, L501.9520, L100.0100, L500.4050, L501.5200 ####[facility] [address] [place], [address] WBC (Bld) [#/Vol] 7.7 10*3/uL Normal 4.4-11.0 [facility] Comment on above: Performed By: #### L 300.3900, L501.9520, L100.0100, L500.4050, L501.5200 ####[facility] [address] [place], [address] Calcium [Mass/Vol]Ordered By : Tiki Saldivar on 07-28-2024 Serum or plasma calcium measurement (mass/volume) 9.3 mg/dL 7.6-11.[address] [facility] Carbon dioxide, total [Moles /volume] in Central venous bloodOrdered By: Tiki Saldivar on 07-28-2024 CO2 [Moles/Vol] 23.3 mmol/L 21.0-32.[address] [facility] Carbon dioxide, total [Moles/volume] in Central venous blood 23.3 mmol/L 21.0-32.[address] [facility] Chloride assayOrdered By: Flora Saldivar on 07-28-2024 Chloride [Moles/Vol] 106 mmol/L 98-108 [facility] Chloride assay 106 mmol/L 98-[address] [facility] Comprehensive Metabolic Prof ilon 07-28-2024 Albumin [Mass/Vol] 3.9 g/dL Normal 3.4-4.8 [facility] Comment on above: Performed By: #### L 300.3900, L501.9520, L100.0100, L500.4050, L501.5200 ####[facility] [address] [place], [address] Albumin/Globulin [Mass ratio] 2.2 {ratio} Normal 0.9-2.[address] [facility] Comment on above: Performed By: #### L 300.3900, L501.9520, L100.0100, L500.4050, L501.5200 ####[facility] [address] [place], [address] ALK PHOS 65 U/L Normal 40-[address] [facility] Comment on above: Performed By: #### L 300.3900, L501.9520, L100.0100, L500.4050, L501.5200 ####[facility] [address] [place], [address] ALT [Catalytic activity/Vol] 15 U/L Normal <=[address] [facility] Comment on above: Performed By: #### L 300.3900, L501.9520, L100.0100, L500.4050, L501.5200 ####[facility] [address] [place], [address] AST [Catalytic activity/Vol] 28 U/L Normal <=[address] [facility] Comment on above: Performed By: #### L 300.3900, L501.9520, L100.0100, L500.4050, L501.5200 ####[facility] [address] [place], [address] Bilirubin [Mass/Vol] 0.73 mg/dL Normal 0.00-1.30 [facility] Comment on above: Performed By: #### L 300.3900, L501.9520, L100.0100, L500.4050, L501.5200 ####[facility] [address] [place], [address] BUN/CRE 15.5 RATIO Normal 10-[address] [facility] Comment on above: Performed By: #### L 300.3900, L501.9520, L100.0100, L500.4050, L501.5200 ####[facility] [address] [place], [address] Calcium [Mass/Vol] 9.3 mg/dL Normal 7.6-11.0 [facility] Comment on above: Performed By: #### L 300.3900, L501.9520, L100.0100, L500.4050, L501.5200 ####[facility] [address] [place], [address] Chloride [Moles/Vol] 106 mmol/L Normal 98-108 [facility] Comment on above: Performed By: #### L 300.3900, L501.9520, L100.0100, L500.4050, L501.5200 ####[facility] [address] [place], [address] CO2 [Moles/Vol] 23.3 mmol/L Normal 21.0-32.[address] [facility] Comment on above: Performed By: #### L 300.3900, L501.9520, L100.0100, L500.4050, L501.5200 ####[facility] [address] [place], [address] Creatinine [Mass/Vol] 1.19 mg/dL Normal 0.70-1.20 [facility] Comment on above: Performed By: #### L 300.3900, L501.9520, L100.0100, L500.4050, L501.5200 ####[facility] [address] [place], [address] ECRCL 42.30 ml/min Low 50-[address] [facility] Comment on above: Performed By: #### L 300.3900, L501.9520, L100.0100, L500.4050, L501.5200 ####[facility] [address] [place], [address] GAP 12 Normal 5-[address] [facility] Comment on above: Performed By: #### L 300.3900, L501.9520, L100.0100, L500.4050, L501.5200 ####[facility] [address] [place], [address] GFR/1.73 sq M.predicted among non-blacks MDRD (S/P/Bld) [Vol rate/Area] 62 mL/min/{1.73_m2} Normal >[address] [facility] Comment on above: Result Comment: mL/m in/1.73m2 CKD-EPI Creatinine Equation (2020) Performed By: #### L 300.3900, L501.9520, L100.0100, L500.4050, L501.5200 ####[facility] [address] [place], [address] Globulin (S) [Mass/Vol] 1.8 g/dL Low 2.2-4.2 [facility] Comment on above: Performed By: #### L 300.3900, L501.9520, L100.0100, L500.4050, L501.5200 ####[facility] [address] [place], [address] Glucose [Mass/Vol] 89 mg/dL Normal 70-99 [facility] Comment on above: Performed By: #### L 300.3900, L501.9520, L100.0100, L500.4050, L501.5200 ####[facility] [address] [place], [address] Potassium [Moles/Vol] 3.5 mmol/L Normal 3.3-5.1 [facility] Comment on above: Performed By: #### L 300.3900, L501.9520, L100.0100, L500.4050, L501.5200 ####[facility] [address] [place], [address] Sodium [Moles/Vol] 141 mmol/L Normal 133-145 [facility] Comment on above: Performed By: #### L 300.3900, L501.9520, L100.0100, L500.4050, L501.5200 ####[facility] [address] [place], [address] T PROT 5.7 g/dL Low 5.9-8.[address] [facility] Comment on above: Performed By: #### L 300.3900, L501.9520, L100.0100, L500.4050, L501.5200 ####[facility] [address] [place], [address] Urea nitrogen [Mass/Vol] 19 mg/dL Normal 4-[address] [facility] Comment on above: Performed By: #### L 300.3900, L501.9520, L100.0100, L500.4050, L501.5200 ####[facility] [address] [place], [address] Creatinine [Mass/Vol]Ordered By: Tiki Saldivar on 07-28-2024 Serum creatinine measurement (mass/volume) 1.19 mg/dL 0.70-1.[address] [facility] Discharge Instructionon 07-02 Discharge Instruction Normal [facility] Eosinophil percentageOrdered By: Tiki Saldivar on 07-28-2024 Eosinophils/100 WBC (Bld) 6.6 % High 0-[address] [facility] Eosinophil percentage 6.6 % High 0-5 [facility] Erythrocyte distribution wid th (RBC) [Ratio]Ordered By: Tiki Saldivar on 07-28-2024 Erythrocyte distribution width ratio 12.4 % 11.6-14.[address] [facility] Erythrocyte distribution wid th ratioOrdered By: Tiki Saldivar on 07-28-2024 Erythrocyte distribution width (RBC) [Ratio] 12.4 % 11.6-14.[address] [facility] Erythrocyte distribution wid th standard deviationOrdered By: Tiki Saldivar on 07-28-2024 Erythrocyte distribution width (RBC) [Ratio] 42.3 fl 35.1-43.[address] [facility] Erythrocyte distribution width standard deviation 42.3 fl 35.1-43.[address] [facility] Estimation of creatinine terry aranceOrdered By: Tiki Saldivar on 07-28-2024 Estimation of creatinine clearance 42.30 ml/min Low 50-[address] [facility] GFR/1.73 sq M.predicted giorgi g non-blacks MDRD (S/P/Bld) [Vol rate/Area]Ordered By: Tiki Saldivar on 07-28-2024 Glomerular filtration rate (GFR) estimation/1.73 sq m using serum, plasma, or whole b 62 >[address] [facility] Glomerular filtration rate ( GFR) estimation/1.73 sq m using serum, plasma, or whole bOrdered By: Tiki Saldivar on 07-28-2024 GFR/1.73 sq M.predicted among non-blacks MDRD (S/P/Bld) [Vol rate/Area] 62 mL/min/{1.73_m2} >60 [facility] Glucose [Mass/Vol]Ordered By : Tiki Saldivar on 07-28-2024 Serum glucose measurement (mass/volume) 89 mg/dL 70-[address] [facility] Glucose measurement at bedsi deOrdered By: Rhys Fontana on 07-28-2024 Glucose [Mass/Vol] 129 mg/dL High 74-106 [facility] Glucose measurement at bedside 129 mg/dL High 74-[address] [facility] HH, Hemoglobin AND Hematocri ton 07-28-2024 Hematocrit (Bld) [Volume fraction] 37.9 % Low 40-[address] [facility] Comment on above: Performed By: #### L 100.0600 ####[facility] [address] [facility] [place], [place], [id number] Hemoglobin (Bld) [Mass/Vol] 13.1 g/dL Normal 13.0-16.[address] [facility] Comment on above: Performed By: #### L 100.0600 ####[facility] [address] [place], [address] Hematocrit Auto (Bld) [Volum e fraction]Ordered By: Rhys Fontana on 07-28-2024 Hematocrit (Bld) [Volume fraction] 37.9 % Low 40-[address] [facility] Automated blood hematocrit (percentage) 37.9 % Low 40-[address] [facility] Hemoglobin measurementOrdere d By: Rhys Fontana on 07-28-2024 Hemoglobin (Bld) [Mass/Vol] 13.1 g/dL 13.0-16.[address] [facility] Hemoglobin measurement 13.1 g/dL 13.0-16.5 [facility] Immature granulocytes/100 WB C Auto (Bld)Ordered By: Tiki Saldivar on 07-28-2024 Immature granulocytes/100 WBC (Bld) 0.400 % 0.0-0.[address] [facility] Automated immature granulocyte percentage 0.400 % 0.0-0.[address] [facility] International normalized rat io (INR) calculationOrdered By: Tiki Saldivar on 07-28-2024 International normalized ratio (INR) calculation 1.[address] [facility] Lymphocytes Auto (Unsp spec) [#/Vol]Ordered By: Tiki Saldivar on 07-28-2024 Absolute lymphocyte count 0.98 X10^3/uL 0.83-4.[address] [facility] Lymphocytes/100 WBC Auto (Un sp spec)Ordered By: Tiki Saldivar on 07-28-2024 Automated lymphocyte count as percentage of total leukocytes 12.7 % Low 19-[address] [facility] MCV (RBC) [Entitic vol]Order ed By: Tiki Saldivar on 07-28-2024 MCV (mean corpuscular volume) determination 93.0 fL 80-[address] [facility] MCV (mean corpuscular volume ) determinationOrdered By: Tiki Saldivar on 07-28-2024 MCV (RBC) [Entitic vol] 93.0 fL 80-94 [facility] Magnesiumon 07-28-2024 Magnesium [Mass/Vol] 1.7 mg/dL Normal 1.5-2.2 [facility] Comment on above: Performed By: #### L 300.3900, L501.9520, L100.0100, L500.4050, L501.5200 ####[facility] [address] [place], [address] Magnesium (Unsp spec) [Mass/ Vol]Ordered By: Tiki Saldivar on 07-28-2024 Magnesium measurement (mass/volume) 1.7 mg/dL 1.5-2.[address] [facility] Magnesium measurement (mass/ volume)Ordered By: Tiki Saldivar on 07-28-2024 Magnesium (Unsp spec) [Mass/Vol] 1.7 mg/dL 1.5-2.[address] [facility] Mean corpuscular hemoglobin (MCH) determinationOrdered By: Tiki Saldivar on 07-28-2024 MCH (RBC) [Entitic mass] 32.6 pg High 27.0-32.[address] [facility] Mean corpuscular hemoglobin (MCH) determination 32.6 pg High 27.0-32.[address] [facility] Mean corpuscular hemoglobin concentration (MCHC) determinationOrdered By: Tiki Saldivar on 07-28-2024 Mean corpuscular hemoglobin concentration (MCHC) determination 35.1 g/dL 32-[address] [facility] Mean platelet volume determi nationOrdered By: Tiki Saldivar on 07-28-2024 Mean platelet volume determination 9.9 fl 6.2-12.[address] [facility] Monocyte percentageOrdered B y: Tiki Saldivar on 07-28-2024 Monocytes/100 WBC (Bld) 8.7 % 0-10 [facility] Monocyte percentage 8.7 % 0-10 [facility] Neutrophil percentageOrdered By: Tiki Saldivar on 07-28-2024 Neutrophils/100 WBC (Bld) 70.4 % High 47-[address] [facility] Neutrophil percentage 70.4 % High 47-70 [facility] No Panel InformationOrdered By: Tiki Saldivar on 07-28-2024 28 U/L <[address] [facility] Nucleated red blood cell per centageOrdered By: Tiki Saldivar on 07-28-2024 Nucleated red blood cell percentage 0 % 0-[address] [facility] Platelet countOrdered By: Flora Saldivar on 07-28-2024 Platelets (Bld) [#/Vol] 323 10*3/uL 150-[address] [facility] Platelet count 323 K/mm3 150-[address] [facility] Potassium (Unsp spec) [Mass/ Vol]Ordered By: Tiki Saldivar on 07-28-2024 Potassium measurement (mass/volume) 3.5 mmol/L 3.3-5.[address] [facility] Potassium measurement (mass/ volume)Ordered By: Tiki Saldivar on 07-28-2024 Potassium (Unsp spec) [Mass/Vol] 3.5 mmol/L 3.3-5.[address] [facility] Prothrombin Time w/INRon INR Coag (PPP) [Relative time] 1.1 {INR} Normal [facility] Comment on above: Performed By: #### L 300.3900, L501.9520, L100.0100, L500.4050, L501.5200 ####[facility] [address] [place], [place], [id number] PT Coag (PPP) [Time] 14.2 s Normal 11.7-14.9 [facility] Comment on above: Performed By: #### L 300.3900, L501.9520, L100.0100, L500.4050, L501.5200 ####[facility] [address] [place], [address] Prothrombin timeOrdered By: Tiki Saldivar on 07-28-2024 PT Coag (PPP) [Time] 14.2 s 11.7-14.9 [facility] Prothrombin time 14.2 SECONDS 11.7-14.9 [facility] RBC Auto (Bld) [#/Vol]Ordere d By: Tiki Saldivar on 07-28-2024 RBC (Bld) [#/Vol] 3.86 10*6/uL Low 4.6-6.2 [facility] Automated blood erythrocyte count 3.86 M/mm3 Low 4.6-6.[address] [facility] Serum creatinine measurement (mass/volume)Ordered By: Tiki Saldivar on 07-28-2024 Creatinine [Mass/Vol] 1.19 mg/dL 0.70-1.20 [facility] Serum globulin measurementOr dered By: Tiki Saldivar on 07-28-2024 Globulin (S) [Mass/Vol] 1.8 g/dL Low 2.2-4.2 [facility] Serum globulin measurement 1.8 g/dL Low 2.2-4.[address] [facility] Serum glucose measurement (m ass/volume)Ordered By: Tiki Saldivar on 07-28-2024 Glucose [Mass/Vol] 89 mg/dL 70-99 [facility] Serum or plasma alanine ugalde otransferase (ALT) measurementOrdered By: Tiki Saldivar on 07-28-2024 ALT [Catalytic activity/Vol] 15 U/L <[address] [facility] Serum or plasma albumin jenna urement (mass/volume)Ordered By: Tiki Saldivar on 07-28-2024 Albumin [Mass/Vol] 3.9 g/dL 3.4-4.8 [facility] Serum or plasma albumin/glob ulin mass ratioOrdered By: Tiki Saldivar on 07-28-2024 Albumin/Globulin [Mass ratio] 2.2 {ratio} 0.9-2.[address] [facility] Serum or plasma alkaline melida sphatase measurementOrdered By: Tiki Saldivar on 07-28-2024 ALP [Catalytic activity/Vol] 65 U/L 40-[address] [facility] Serum or plasma calcium jenna urement (mass/volume)Ordered By: Tiki Saldivar on 07-28-2024 Calcium [Mass/Vol] 9.3 mg/dL 7.6-11.0 [facility] Serum or plasma urea nitroge n measurement (mass/volume)Ordered By: Tiki Saldivar on 07-28-2024 Urea nitrogen [Mass/Vol] 19 mg/dL 08-[address] [facility] Sodium levelOrdered By: Kirsten Saldivar on 07-28-2024 Sodium [Moles/Vol] 141 mmol/L 133-145 [facility] Sodium level 141 mmol/L 133-[address] [facility] TSH DL <= 0.005 mIU/L QnOrde red By: Tiki Saldivar on 07-28-2024 TSH Qn 2.440 uIU/mL 0.300-4.[address] [facility] Serum or plasma thyroid stimulating hormone (TSH) measurement by high sensitivity met 2.440 uIU/mL 0.300-4.[address] [facility] Thyroid Stim Hormone (TSH)on 07-28-2024 TSH 2.440 uIU/mL Normal 0.300-4.[address] [facility] Comment on above: Performed By: #### L 300.3900, L501.9520, L100.0100, L500.4050, L501.5200 ####[facility] [address] [place], [place], [id number] Total proteinOrdered By: Tho Saldivar on 07-28-2024 Protein [Mass/Vol] 5.7 g/dL Low 5.9-8.4 [facility] Total protein 5.7 g/dL Low 5.9-8.[address] [facility] Urea nitrogen [Mass/Vol]Orde red By: Tiki Saldivar on 07-28-2024 Serum or plasma urea nitrogen measurement (mass/volume) 19 mg/dL 08-[address] [facility] White blood cell (WBC) count Ordered By: Tiki Saldivar on 07-28-2024 WBC (Bld) [#/Vol] 7.7 10*3/uL 4.4-11.0 [facility] White blood cell (WBC) count 7.7 K/mm3 4.4-11.[address] [facility] ALP [Catalytic activity/Vol] Ordered By: Devon Reagan on 07-27-2024 Serum or plasma alkaline phosphatase measurement 74 U/L 40-[address] [facility] ALT [Catalytic activity/Vol] Ordered By: Devon Reagan on 07-27-2024 Serum or plasma alanine aminotransferase (ALT) measurement 15 U/L <[address] [facility] Abdomen/Pelvis W IV Cont ONL Yon 07-27-2024 Abdomen/Pelvis W IV Cont ONLY Normal [facility] Absolute neutrophil countOrd ered By: Devonjose Reagan on 07-27-2024 Absolute neutrophil count 5.6 X10^3/uL 2.0-7.[address] [facility] Albumin [Mass/Vol]Ordered By : [facility] 07-27-[facility]24 Serum or plasma albumin measurement (mass/volume) 4.3 g/dL 3.4-4.[address] [facility] Albumin/Globulin [Mass ratio ]Ordered By: [facility] on 07-27-2024 Serum or plasma albumin/globulin mass ratio 1.9 RATIO 0.9-2.[address] [facility] Alcohol, Blood (Medical)-Ser umon 07-27-2024 SERUM ETOH 127.0 mg/dL High <=10.[address] [facility] Comment on above: Result Comment: This test is for medical purposes only. The legaldefinition of intoxication varies according to local law. Performed By: #### L 501.9100 ####[facility] [address] [place], [address] Anion gap [Moles/Vol]Ordered By: Devon Reagan on 07-27-2024 Anion gap in Serum or Plasma 17 High 5-[address] [facility] Arterial patency Wrist arter y --pre arterial punctureOrdered By: Tiki Saldivar on 07-27-2024 Assessment of wrist artery patency prior to arterial puncture Positive [facility] Assessment of wrist artery p atency prior to arterial punctureOrdered By: Tiki Saldivar on 07-27-2024 Arterial patency Wrist artery --pre arterial puncture Positive [facility] BUN/creatinine ratioOrdered By: Devon Reagan on 07-27-2024 BUN/creatinine ratio 21.7 RATIO High 10-20 [facility] Base excess Calc (BldV) [Mol es/Vol]Ordered By: Tiki Saldivar on 07-27-2024 Blood base excess determination -2 mmol/L -2-[address] [facility] Venous blood base excess measurement -2 mmol/L Low -1.0-3.[address] [facility] Basic Metabolic Profile (BMP )on 07-27-2024 BUN/CRE 2.2 RATIO Low 10-[address] [facility] Comment on above: Performed By: #### L 500.2500 ####[facility] [address] [place], [address] Calcium [Mass/Vol] 8.5 mg/dL Normal 7.6-11.0 [facility] Comment on above: Performed By: #### L 500.2500 ####[facility] [address] [place], [address] Chloride [Moles/Vol] 107 mmol/L Normal 98-108 [facility] Comment on above: Performed By: #### L 500.2500 ####[facility] [address] [place], [address] CO2 [Moles/Vol] 17.7 mmol/L Low 21.0-32.[address] [facility] Comment on above: Performed By: #### L 500.2500 ####[facility] [address] [place], [address] Creatinine [Mass/Vol] 1.31 mg/dL High 0.70-1.20 [facility] Comment on above: Performed By: #### L 500.2500 ####[facility] [address] [place], [address] ECRCL 38.36 ml/min Low 50-[address] [facility] Comment on above: Performed By: #### L 500.2500 ####[facility] [address] [place], [address] GAP 18 High 5-[address] [facility] Comment on above: Performed By: #### L 500.2500 ####[facility] [address] [place], [address] GFR/1.73 sq M.predicted among non-blacks MDRD (S/P/Bld) [Vol rate/Area] 55 mL/min/{1.73_m2} Low >[address] [facility] Comment on above: Result Comment: mL/m in/1.73m2 CKD-EPI Creatinine Equation (2020) Performed By: #### L 500.2500 ####[facility] [address] [place], [address] Glucose [Mass/Vol] 54 mg/dL Low 70-99 [facility] Comment on above: Performed By: #### L 500.2500 ####[facility] [address] [place], [address] Potassium [Moles/Vol] 3.8 mmol/L Normal 3.3-5.1 [facility] Comment on above: Performed By: #### L 500.2500 ####[facility] [address] [place], [address] Sodium [Moles/Vol] 143 mmol/L Normal 133-145 [facility] Comment on above: Performed By: #### L 500.2500 ####[facility] [address] [place], [address] Urea nitrogen [Mass/Vol] 3 mg/dL Low 4-[address] [facility] Comment on above: Performed By: #### L 500.2500 ####[facility] [address] [place], [address] Basophil percentageOrdered B y: Devon Reagan on 03-27-2025 Basophil percentage 1.2 % High 0-1 [facility] Bedside Glucoseon 07-27-2024 FINGERSTICK GLU 139 mg/dL High 74-[address] [facility] Comment on above: Result Comment: XU TRIMBLE OF PATIENT CARE PER NURSING PROTOCOL Performed By: #### L 501.080 ####[facility] [address] [place], [address] Bilirubin Test strip Ql (U)O rdered By: Devon Reagan on 07-27-2024 Bilirubin Ql (U) Negative Negative [facility] Bilirubin, totalOrdered By: Devon Reagan on 07-27-2024 Bilirubin, total 0.56 mg/dL 0.00-1.[address] [facility] Blood Gases by CPSon 025 ROYER TEST Positive Normal [facility] Comment on above: Performed By: #### L 9000.0800 ####[facility] [address] [place], [address] Base excess Calc (Bld) [Moles/Vol] -2 mmol/L Normal -2 to +[address] [facility] Comment on above: Performed By: #### L 9000.0800 ####[facility] [address] [place], [address] Blood Gas Type ART Normal [facility] Comment on above: Performed By: #### L 9000.0800 ####[facility] [address] [place], [address] CO2 [Moles/Vol] 23 mmol/L Normal [facility] Comment on above: Performed By: #### L 9000.0800 ####[facility] [address] [place], [address] HCO3 (Bld) [Moles/Vol] 22.4 mmol/L Normal 22-26 [facility] Comment on above: Performed By: #### L 9000.0800 ####[facility] [address] [place], [address] Mode Not entered Normal [facility] Comment on above: Performed By: #### L 9000.0800 ####[facility] [address] [place], [address] O2 Delivery Dev Room Air Normal [facility] Comment on above: Performed By: #### L 9000.0800 ####[facility] [address] [place], [address] pCO2 32.4 mmHg Low 35-[address] [facility] Comment on above: Performed By: #### L 9000.0800 ####[facility] [address] [place], [address] pH (Bld) 7.45 [pH] Normal 7.35-7.[address] [facility] Comment on above: Performed By: #### L 9000.0800 ####[facility] [address] [place], [address] PO2 68 mmHG Low 75-[address] [facility] Comment on above: Performed By: #### L 9000.0800 ####[facility] [address] [place], [address] SITE L Radial Normal [facility] Comment on above: Performed By: #### L 9000.0800 ####[facility] [address] [place], [address] SO2 94 Low 95-[address] [facility] Comment on above: Performed By: #### L 9000.0800 ####[facility] [address] [place], [address] Blood base excess determinat ionOrdered By: Tiki Saldivar on 07-27-2024 Base excess Calc (BldV) [Moles/Vol] -2 mmol/L -2-[address] [facility] Blood bicarbonate measuremen tOrdered By: Tiki Saldivar on 07-27-2024 HCO3 (Bld) [Moles/Vol] 22.4 mmol/L [facility] Blood bicarbonate measurement 22.4 mmol/L [facility] CBC W/Diff, Automatedon 07-02 Absolute Lymph 1.02 X10 3/uL Normal 0.83-4.[address] [facility] Comment on above: Performed By: #### L 503.6005, L501.2450, L500.4050, L100.0100 ####[facility] [address] [place], [address] Absolute Neut 5.6 X10 3/uL Normal 2.0-7.[address] [facility] Comment on above: Performed By: #### L 503.6005, L501.2450, L500.4050, L100.0100 ####[facility] [address] [place], [address] Basophils/100 WBC (Bld) 1.2 % High 0-1 [facility] Comment on above: Performed By: #### L 503.6005, L501.2450, L500.4050, L100.0100 ####[facility] [address] [place], [address] Eosinophils/100 WBC (Bld) 6.0 % High 0-[address] [facility] Comment on above: Performed By: #### L 503.6005, L501.2450, L500.4050, L100.0100 ####[facility] [address] [place], [address] Erythrocyte distribution width (RBC) [Ratio] 12.5 % Normal 11.6-14.[address] [facility] Comment on above: Performed By: #### L 503.6005, L501.2450, L500.4050, L100.0100 ####[facility] [address] [place], [address] Hematocrit (Bld) [Volume fraction] 38.4 % Low 40-[address] [facility] Comment on above: Performed By: #### L 503.6005, L501.2450, L500.4050, L100.0100 ####[facility] [address] [place], [address] Hemoglobin (Bld) [Mass/Vol] 13.5 g/dL Normal 13.0-16.[address] [facility] Comment on above: Performed By: #### L 503.6005, L501.2450, L500.4050, L100.0100 ####[facility] [address] [place], [address] IG% 0.300 Normal 0.0-0.[address] [facility] Comment on above: Result Comment: IG% - Immature Granulocytes (promyelocytes, myelocytes andmetamyelocytes) > 1% indicates that a LEFT SHIFT is Present. Performed By: #### L 503.6005, L501.2450, L500.4050, L100.0100 ####[facility] [address] [place], [address] Lymphocytes/100 WBC (Bld) 13.4 % Low 19-[address] [facility] Comment on above: Performed By: #### L 503.6005, L501.2450, L500.4050, L100.0100 ####[facility] [address] [place], [address] MCH (RBC) [Entitic mass] 32.8 pg High 27.0-32.[address] [facility] Comment on above: Performed By: #### L 503.6005, L501.2450, L500.4050, L100.0100 ####[facility] [address] [place], [address] MCHC (RBC) [Mass/Vol] 35.2 g/dL Normal 32-36 [facility] Comment on above: Performed By: #### L 503.6005, L501.2450, L500.4050, L100.0100 ####[facility] [address] [place], [address] MCV (RBC) [Entitic vol] 93.4 fL Normal 80-94 [facility] Comment on above: Performed By: #### L 503.6005, L501.2450, L500.4050, L100.0100 ####[facility] [address] [place], [address] Monocytes/100 WBC (Bld) 5.5 % Normal 0-10 [facility] Comment on above: Performed By: #### L 503.6005, L501.2450, L500.4050, L100.0100 ####[facility] [address] [place], [address] Neutrophils/100 WBC (Bld) 73.6 % High 47-[address] [facility] Comment on above: Performed By: #### L 503.6005, L501.2450, L500.4050, L100.0100 ####[facility] [address] [place], [address] Nucleated RBC (Bld) [#/Vol] 0 10*3/uL Normal 0-[address] [facility] Comment on above: Performed By: #### L 503.6005, L501.2450, L500.4050, L100.0100 ####[facility] [address] [place], [address] Platelet mean volume (Bld) [Entitic vol] 9.9 fL Normal 6.2-12.[address] [facility] Comment on above: Performed By: #### L 503.6005, L501.2450, L500.4050, L100.0100 ####[facility] [address] [place], [address] Platelets (Bld) [#/Vol] 380 10*3/uL Normal 150-[address] [facility] Comment on above: Performed By: #### L 503.6005, L501.2450, L500.4050, L100.0100 ####[facility] [address] [place], [address] RBC (Bld) [#/Vol] 4.11 10*6/uL Low 4.6-6.2 [facility] Comment on above: Performed By: #### L 503.6005, L501.2450, L500.4050, L100.0100 ####[facility] [address] [place], [address] RDW SD 42.6 fl Normal 35.1-43.[address] [facility] Comment on above: Performed By: #### L 503.6005, L501.2450, L500.4050, L100.0100 ####[facility] [address] [place], [address] WBC (Bld) [#/Vol] 7.6 10*3/uL Normal 4.4-11.0 [facility] Comment on above: Performed By: #### L 503.6005, L501.2450, L500.4050, L100.0100 ####[facility] [address] [place], [address] CO2 (BldV) [Moles/Vol]Ordere d By: Tiki Saldivar on 07-27-2024 CO2 [Moles/Vol] 23 mmol/L - [facility] Venous blood total carbon dioxide measurement 23 mmol/L [facility] CO2 (BldV) [Partial pressure ]Ordered By: Tiki Saldivar on 07-27-2024 Venous blood partial pressure of carbon dioxide measurement 28.1 mmHg Low 41-[address] [facility] Calcium [Mass/Vol]Ordered By : Devon Reagan on 07-27-2024 Serum or plasma calcium measurement (mass/volume) 9.8 mg/dL 7.6-11.[address] [facility] Carbon dioxide, total [Moles /volume] in Central venous bloodOrdered By: Devon Reagan on 07-27-2024 Carbon dioxide, total [Moles/volume] in Central venous blood 24.1 mmol/L 21.0-32.[address] [facility] Chloride assayOrdered By: Asael Reagan on 07-27-2024 Chloride assay 102 mmol/L 98-[address] [facility] Clarity (U)Ordered By: Devon Reagan on 07-27-2024 Urine clarity Clear Clear [facility] Color (U)Ordered By: Devon Crabtree on 07-27-2024 Urine color determination Yellow Yellow [facility] Comprehensive Metabolic Prof ilon 07-27-2024 Albumin [Mass/Vol] 4.3 g/dL Normal 3.4-4.8 [facility] Comment on above: Performed By: #### L 503.6005, L501.2450, L500.4050, L100.0100 ####[facility] [address] [place], [address] Albumin/Globulin [Mass ratio] 1.9 {ratio} Normal 0.9-2.[address] [facility] Comment on above: Performed By: #### L 503.6005, L501.2450, L500.4050, L100.0100 ####[facility] [address] [place], [address] ALK PHOS 74 U/L Normal 40-[address] [facility] Comment on above: Performed By: #### L 503.6005, L501.2450, L500.4050, L100.0100 ####[facility] [address] [place], [address] ALT [Catalytic activity/Vol] 15 U/L Normal <=[address] [facility] Comment on above: Performed By: #### L 503.6005, L501.2450, L500.4050, L100.0100 ####[facility] [address] [place], [address] AST [Catalytic activity/Vol] 27 U/L Normal <=[address] [facility] Comment on above: Performed By: #### L 503.6005, L501.2450, L500.4050, L100.0100 ####[facility] [address] [place], [address] Bilirubin [Mass/Vol] 0.56 mg/dL Normal 0.00-1.30 [facility] Comment on above: Performed By: #### L 503.6005, L501.2450, L500.4050, L100.0100 ####[facility] [address] [place], [address] BUN/CRE 21.7 RATIO High 10-[address] [facility] Comment on above: Performed By: #### L 503.6005, L501.2450, L500.4050, L100.0100 ####[facility] [address] [place], [address] Calcium [Mass/Vol] 9.8 mg/dL Normal 7.6-11.0 [facility] Comment on above: Performed By: #### L 503.6005, L501.2450, L500.4050, L100.0100 ####[facility] [address] [place], [address] Chloride [Moles/Vol] 102 mmol/L Normal 98-108 [facility] Comment on above: Performed By: #### L 503.6005, L501.2450, L500.4050, L100.0100 ####[facility] [address] [place], [address] CO2 [Moles/Vol] 24.1 mmol/L Normal 21.0-32.[address] [facility] Comment on above: Performed By: #### L 503.6005, L501.2450, L500.4050, L100.0100 ####[facility] [address] [place], [address] Creatinine [Mass/Vol] 1.51 mg/dL High 0.70-1.20 [facility] Comment on above: Performed By: #### L 503.6005, L501.2450, L500.4050, L100.0100 ####[facility] [address] [place], [address] ECRCL 36.04 ml/min Low 50-[address] [facility] Comment on above: Performed By: #### L 503.6005, L501.2450, L500.4050, L100.0100 ####[facility] [address] [place], [address] GAP 17 High 5-[address] [facility] Comment on above: Performed By: #### L 503.6005, L501.2450, L500.4050, L100.0100 ####[facility] [address] [place], [address] GFR/1.73 sq M.predicted among non-blacks MDRD (S/P/Bld) [Vol rate/Area] 46 mL/min/{1.73_m2} Low >[address] [facility] Comment on above: Result Comment: mL/m in/1.73m2 CKD-EPI Creatinine Equation (2020) Performed By: #### L 503.6005, L501.2450, L500.4050, L100.0100 ####[facility] [address] [place], [address] Globulin (S) [Mass/Vol] 2.2 g/dL Normal 2.2-4.2 [facility] Comment on above: Performed By: #### L 503.6005, L501.2450, L500.4050, L100.0100 ####[facility] [address] [place], [address] Glucose [Mass/Vol] 84 mg/dL Normal 70-99 [facility] Comment on above: Performed By: #### L 503.6005, L501.2450, L500.4050, L100.0100 ####[facility] [address] [place], [address] Potassium [Moles/Vol] 3.2 mmol/L Low 3.3-5.1 [facility] Comment on above: Performed By: #### L 503.6005, L501.2450, L500.4050, L100.0100 ####[facility] [address] [place], [address] Sodium [Moles/Vol] 143 mmol/L Normal 133-145 [facility] Comment on above: Performed By: #### L 503.6005, L501.2450, L500.4050, L100.0100 ####[facility] [address] [place], [address] T PROT 6.5 g/dL Normal 5.9-8.[address] [facility] Comment on above: Performed By: #### L 503.6005, L501.2450, L500.4050, L100.0100 ####[facility] [address] [place], [address] Urea nitrogen [Mass/Vol] 33 mg/dL High 4-[address] [facility] Comment on above: Performed By: #### L 503.6005, L501.2450, L500.4050, L100.0100 ####[facility] [address] [place], [address] Creatinine [Mass/Vol]Ordered By: Devon Reagan on 07-27-2024 Serum creatinine measurement (mass/volume) 1.51 mg/dL High 0.70-1.[address] [facility] Determination of fraction of inspired oxygenOrdered By: Tiki Saldivar on 07-27-2024 Determination of fraction of inspired oxygen 21.[address] [facility] Emergency Department Summary on 07-27-2024 Emergency Department Summary Normal [facility] Eosinophil percentageOrdered By: Devon Reagan on 07-27-2024 Eosinophil percentage 6.0 % High 0-5 [facility] Erythrocyte distribution wid th (RBC) [Entitic vol]Ordered By: Devon Quintero on 07-27-2024 Erythrocyte distribution width standard deviation 42.6 fl 35.1-43.[address] [facility] Erythrocyte distribution wid th (RBC) [Ratio]Ordered By: Devon Reagan on 07-27-2024 Erythrocyte distribution width ratio 12.5 % 11.6-14.[address] [facility] Estimation of creatinine terry aranceOrdered By: Devon Reagan on 07-27-2024 Estimation of creatinine clearance 36.04 ml/min Low 50-[address] [facility] Ethanol [Mass/Vol]Ordered By : Devon Reagan on 07-27-2024 Serum or plasma ethanol measurement (mass/volume) 127.0 mg/dL High <10.[address] [facility] GFR/1.73 sq M.predicted giorgi g non-blacks MDRD (S/P/Bld) [Vol rate/Area]Ordered By: Deovn Reagan on 07-27-2024 Glomerular filtration rate (GFR) estimation/1.73 sq m using serum, plasma, or whole b 46 Low >[address] [facility] Glucose [Mass/Vol]Ordered By : Devon Reagan on 07-27-2024 Serum glucose measurement (mass/volume) 84 mg/dL 70-[address] [facility] H AND P Exam - Hospitaliston 07-27-2024 H&P Exam - Hospitalist Normal [facility] Hematocrit Auto (Bld) [Volum e fraction]Ordered By: Devon Reagan on 07-27-2024 Automated blood hematocrit (percentage) 38.4 % Low 40-[address] [facility] Hemoglobin measurementOrdere d By: Devon Reagan on 07-27-2024 Hemoglobin measurement 13.5 g/dL 13.0-16.5 [facility] Immature granulocytes/100 WB C Auto (Bld)Ordered By: Devon Reagan on 07-27-2024 Automated immature granulocyte percentage 0.300 % 0.0-0.[address] [facility] Ketones Test strip Ql (U)Ord ered By: Devon Reagan on 07-27-2024 Ketones Ql (U) 5 mg/dl High Negative [facility] Urine ketones detection by test strip 5 mg/dl High Negative [facility] Lactic Acidon 07-27-2024 Lactate [Moles/Vol] 1.9 mmol/L Normal 0.0-2.0 [facility] Comment on above: Order Comment: Y Performed By: #### L 503.6005 ####[facility] [address] [place], [place], [phone] Lactate [Moles/Vol] 4.8 mmol/L Invalid Interpretation Code 0.0-2.[address] [facility] Comment on above: Order Comment: Y Result Comment: Crit ical Result(s) Called at 1424 : by: NANO PANTOJA. ??Results read back by same. Performed By: #### L 503.6005 ####[facility] [address] [place], [place], [phone] Lactate [Moles/Vol] 4.1 mmol/L Invalid Interpretation Code 0.0-2.[address] [facility] Comment on above: Order Comment: Y Result Comment: Crit ical Result(s) Called at 1121: by: NANO MCCORMICK.??Results read back by same.Critical Result(s) Called at: by:??[facility] AMENDED REPORT 07/27/24 1134 LACTIC ACID previously reported as: 4.1 *H mmol/LCritical Result(s) Called at 1121: by: NANO MCCORMICK.??Results read back by same. Performed By: #### L 503.6005, L501.2450, L500.4050, L100.0100 ####[facility] [address] [facility] [address] [place], [place], [phone] Lactic acid measurementOrder ed By: Tiki Saldivar on 07-27-2024 Lactic acid measurement 1.9 mmol/L 0.0-2.0 [facility] Lactic acid measurementOrder ed By: Devon Reagan on 07-27-2024 Lactic acid measurement 4.8 mmol/L High 0.0-2.0 [facility] Lipaseon 07-27-2024 Lipase [Catalytic activity/Vol] 47 U/L Normal 13-[address] [facility] Comment on above: Result Comment: José cuellar note:LIPASE revised reference range effective 22.New Lipase methodology. Expected to produce lower valuesthan the previous assay method.NEW Reference Range: 13 - 75 U/L Performed By: #### L 503.6005, L501.2450, L500.4050, L100.0100 ####[facility] [address] [facility] [place], [address] Lipase measurementOrdered By : Devon Reagan on 07-27-2024 Lipase measurement 47 U/L 13-75 [facility] Lower GI hemoglobin IA Ql (S tl)Ordered By: Devon Reagan on 07-27-2024 Stool gastrointestinal hemoglobin detection by immunologic method Positive Abnormal [facility] Lymphocytes Auto (Unsp spec) [#/Vol]Ordered By: Devon Reagan on 07-27-2024 Absolute lymphocyte count 1.02 X10^3/uL 0.83-4.[address] [facility] Lymphocytes/100 WBC Auto (Un sp spec)Ordered By: Devon Reagan on 07-27-2024 Automated lymphocyte count as percentage of total leukocytes 13.4 % Low 19-[address] [facility] MCV (RBC) [Entitic vol]Order ed By: Devon Reagan on 07-27-2024 MCV (mean corpuscular volume) determination 93.4 fL 80-[address] [facility] Mean corpuscular hemoglobin (MCH) determinationOrdered By: Devon Reagan on 07-27-2024 Mean corpuscular hemoglobin (MCH) determination 32.8 pg High 27.0-32.[address] [facility] Mean corpuscular hemoglobin concentration (MCHC) determinationOrdered By: Devon Reagan on 07-27-2024 Mean corpuscular hemoglobin concentration (MCHC) determination 35.2 g/dL 32-[address] [facility] Mean platelet volume determi nationOrdered By: Devon Reagan on 07-27-2024 Mean platelet volume determination 9.9 fl 6.2-12.[address] [facility] Measurement, pHOrdered By: Aquilino Saldivar on 07-27-2024 pH (Unsp spec) 7.45 [pH] 7.35-7.[address] [facility] Monocyte percentageOrdered B y: Devon Reagan on 07-27-2024 Monocyte percentage 5.5 % 0-10 [facility] Mucus LM Ql (Urine sed)Order ed By: Devon Reagan on 07-27-2024 Mucus Ql (Urine sed) 0 SEEN /hpf [facility] Neutrophil percentageOrdered By: Devon Reagan on 07-27-2024 Neutrophil percentage 73.6 % High 47-70 [facility] Nitrite Test strip Ql (U)Ord ered By: Devon Reagan on 07-27-2024 Nitrite Ql (U) Negative Negative [facility] No Panel InformationOrdered By: Tiki Saldivar on 07-27-[address] [facility] L Radial [facility] Not entered [facility] Room Air [facility] See comment [facility] No Panel InformationOrdered By: Devon Reagan on 07-27-2024 27 U/L <[address] [facility] Nucleated red blood cell per centageOrdered By: Devon Reagan on 07-27-2024 Nucleated red blood cell percentage 0 % 0-[address] [facility] Oxygen (BldV) [Partial press ure]Ordered By: Tiki Saldivar on 07-27-2024 Venous blood partial pressure of oxygen measurement 31 mmHg 25-[address] [facility] Oxygen saturation measuremen tOrdered By: Tiki Saldivar on 07-27-2024 Oxygen saturation measurement 94 % Low 95-[address] [facility] Partial pressure of carbon d ioxide measurementOrdered By: Tiki Saldivar on 07-27-2024 Partial pressure of carbon dioxide measurement 32.4 mmHg Low 35-[address] [facility] Partial pressure of oxygen m easurementOrdered By: Tiki Saldivar on 07-27-2024 Partial pressure of oxygen measurement 68 mmHG Low 75-[address] [facility] Platelet countOrdered By: Asael Reagan on 07-27-2024 Platelet count 380 K/mm3 150-[address] [facility] Potassium (Unsp spec) [Mass/ Vol]Ordered By: Devon Reagan on 07-27-2024 Potassium measurement (mass/volume) 3.2 mmol/L Low 3.3-5.[address] [facility] Protein Test strip Ql (U)Ord ered By: Devon Reagan on 07-27-2024 Protein Ql (U) 15 mg/dl High Negative [facility] Urine protein assay by test strip, semi-quantitative 15 mg/dl High Negative [facility] RBC Auto (Bld) [#/Vol]Ordere d By: Devon Reagan on 07-27-2024 Automated blood erythrocyte count 4.11 M/mm3 Low 4.6-6.[address] [facility] Serum globulin measurementOr dered By: Devon Reagan on 07-27-2024 Serum globulin measurement 2.2 g/dL 2.2-4.[address] [facility] Serum or plasma ethanol jenna urement (mass/volume)Ordered By: Devon Quintero on 07-27-2024 Ethanol [Mass/Vol] 127.0 mg/dL High <10.1 [facility] Sodium levelOrdered By: Moncho Reagan on 07-27-2024 Sodium level 143 mmol/L 133-[address] [facility] Specific gravity (U) [Rel de nsity]Ordered By: Devon Reagan on 07-27-2024 Urine specific gravity measurement 1.015 1.002-1.[address] [facility] Squamous epithelial cells de tection in urine sediment by light microscopyOrdered By: Devon Reagan on 07-27-2024 Epithelial cells.squamous LM Ql (Urine sed) 0 SEEN /hpf 0-[address] [facility] Stool Occult Blood iFOBon STOB Positive Normal [facility] Comment on above: Performed By: #### M 100.7900 ####[facility] [address] [place] [phone] Stool gastrointestinal hemog lobin detection by immunologic methodOrdered By: Devon Reagan on 07-27-2024 Lower GI hemoglobin IA Ql (Stl) Positive Abnormal [facility] Total carbon dioxide measure mentOrdered By: Tiki Saldivar on 07-27-2024 CO2 [Moles/Vol] 23 mmol/L [facility] Total carbon dioxide measurement 23 mmol/L [facility] Total proteinOrdered By: Kevin Reagan on 07-27-2024 Total protein 6.5 g/dL 5.9-8.[address] [facility] Urea nitrogen [Mass/Vol]Orde red By: Devon Reagan on 07-27-2024 Serum or plasma urea nitrogen measurement (mass/volume) 33 mg/dL High 4-[address] [facility] Urinalysis, Completeon 07-27 RBC 0 SEEN Normal 0-[address] [facility] Comment on above: Order Comment: ESTRELLA CTOR TO SPECIFY Performed By: #### L 400.0001 ####[facility] [address] [facility] [phone] BACTERIA 0 SEEN Normal None Seen [facility] Comment on above: Order Comment: ESTRELLA CTOR TO SPECIFY Performed By: #### L 400.0001 ####[facility] [address] [facility] [phone] EPI,SQUAMOUS 0 SEEN Normal 0-[address] [facility] Comment on above: Order Comment: COLLE CTOR TO SPECIFY Performed By: #### L 400.0001 ####[facility] [address] [place], [address] Mucus Ql (Urine sed) 0 SEEN Normal [facility] Comment on above: Order Comment: ESTRELLA CTOR TO SPECIFY Performed By: #### L 400.0001 ####[facility] [address] [place], [address] WBC 0 SEEN Normal 0-[address] [facility] Comment on above: Order Comment: ESTRELLA CTOR TO SPECIFY Performed By: #### L 400.0001 ####[facility] [address] [place], [place], [phone] Urine clarityOrdered By: Kevin Reagan on 07-27-2024 Clarity (U) Clear Clear [facility] Urine color determinationOrd ered By: Devon Reagan on 07-27-2024 Color (U) Yellow Yellow [facility] Urine glucose detectionOrder ed By: Devon Reagan on 07-27-2024 Glucose Ql (U) Normal mg/dl Normal [facility] Urine glucose detection Normal mg/dl Normal [facility] Urine leukocyte esterase det ection by dipstickOrdered By: Devon Reagan on 07-27-2024 Leukocyte esterase Test strip Ql (U) Negative Negative [facility] Urine pHOrdered By: Devon Onofre on 07-27-2024 pH (U) 6.0 [pH] 5.0 - 8.[address] [facility] Urine sediment bacteria coun t by microscopy (number/high power field)Ordered By: Devon Reagan on 07-27-2024 Bacteria LM.HPF (Urine sed) [#/Area] 0 /[HPF] None Seen [facility] Urine specific gravity measu rementOrdered By: Devon Reagan on 07-27-2024 Specific gravity (U) [Rel density] 1.015 1.002-1.[address] [facility] Urine total bilirubin detect ion by test stripOrdered By: Devon Reagan on 07-27-2024 Urine total bilirubin detection by test strip Negative Negative [facility] Urine urobilinogen measureme ntOrdered By: Devon Reagan on 07-27-2024 Urobilinogen Ql (U) Normal mg/dl Normal [facility] Venous Blood Gason 5 Blood Gas Type STEPHANIE Normal [facility] Comment on above: Performed By: #### L 9000.0810 ####[facility] [address] [place], [address] CO2 [Moles/Vol] 23 mmol/L Normal 23-[address] [facility] Comment on above: Performed By: #### L 9000.0810 ####[facility] [address] [place], [address] Comment Normal 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 Performed By: #### L 9000.0810 ####[facility] [address] [place], [address] FI02 21.[address] [facility] Comment on above: Performed By: #### L 9000.0810 ####[facility] [address] [place], [address] HCO3 (Bld) [Moles/Vol] 22 mmol/L Normal 22-26 [facility] Comment on above: Performed By: #### L 9000.0810 ####[facility] [address] [place], [address] O2 Delivery Dev Not entered [facility] Comment on above: Performed By: #### L 9000.0810 ####[facility] [address] [place], [address] SITE vein Normal [facility] Comment on above: Performed By: #### L 9000.0810 ####[facility] [address] [place], [address] VBG BE -2 mmol/L Low -1.0-3.[address] [facility] Comment on above: Performed By: #### L 9000.0810 ####[facility] [address] [place], [place], [phone] VBG pCO2 28.1 mmHg Low 41-[address] [facility] Comment on above: Performed By: #### L 9000.0810 ####[facility] [address] [facility] [phone] VBG pH 7.50 High 7.32-7.[address] [facility] Comment on above: Performed By: #### L 9000.0810 ####[facility] [address] [place], [place], [phone] VBG PO2 31 mmHg Normal 25-[address] [facility] Comment on above: Performed By: #### L 9000.0810 ####[facility] [address] [place], [place], [phone] VBG SO2 67 Normal 50-[address] [facility] Comment on above: Performed By: #### L 9000.0810 ####[facility] [address] [place], [place], [phone] Venous blood base excess tianna surementOrdered By: Tiki Saldivar on 07-27-2024 Base excess Calc (BldV) [Moles/Vol] -2 mmol/L Low -1.0-3.[address] [facility] Venous blood bicarbonate tianna surementOrdered By: Tiki Saldivar on 07-27-2024 HCO3 (Bld) [Moles/Vol] 22 mmol/L 22- [facility] Venous blood bicarbonate measurement 22 mmol/L -[address] [facility] Venous blood oxygen saturati on measurementOrdered By: Tiki Saldivar on 07-27-2024 Venous blood oxygen saturation measurement 67 % 50-[address] [facility] Venous blood pH measurementO rdered By: Tiki Saldivar on 07-27-2024 pH (BldV) 7.50 [pH] High 7.32-7.[address] [facility] Venous blood partial pressur e of carbon dioxide measurementOrdered By: Tiki Saldivar on 07-27-2024 CO2 (BldV) [Partial pressure] 28.1 mm[Hg] Low 41-[address] [facility] Venous blood partial pressur e of oxygen measurementOrdered By: Tiki Saldivar on 07-27-2024 Oxygen (BldV) [Partial pressure] 31 mm[Hg] 25-[address] [facility] White blood cell (WBC) count Ordered By: Devon Reagan on 07-27-2024 White blood cell (WBC) count 7.6 K/mm3 4.4-11.[address] [facility] White blood cell countOrdere d By: Devon Reagan on 07-27-2024 White blood cell count 0 SEEN /hpf 0-5 [facility] White blood cell count 0 SEEN /hpf [facility] pH (BldV)Ordered By: Tiki craig on 07-27-2024 Venous blood pH measurement 7.50 High 7.32-7.[address] [facility] pH (U)Ordered By: Deovn Royal on 07-27-2024 Urine pH 6.0 5.0 - 8.[address] [facility] pH (Unsp spec)Ordered By: Flora Saldivar on 07-27-2024 Measurement, pH 7.45 7.35-7.[address] [facility] Absolute lymphocyte countOrd ered By: Nanette Macdonald on 07-26-2024 Lymphocytes Auto (Unsp spec) [#/Vol] 1.15 10*3/uL 0.83-4.[address] [facility] Absolute neutrophil countOrd ered By: Nanette Macdonald on 07-26-2024 Absolute neutrophil count 5.3 X10^3/uL 2.0-7.[address] [facility] Anion gap [Moles/Vol]Ordered By: Spenser Sanchez on 07-26-2024 Anion gap in Serum or Plasma 16 High 5-[address] [facility] Anion gap in Serum or Plasma Ordered By: Spenser Sanchez on 07-26-2024 Anion gap [Moles/Vol] 16 mmol/L High 5-15 [facility] Automated lymphocyte count a s percentage of total leukocytesOrdered By: Nanette Macdonald on 07-26-2024 Lymphocytes/100 WBC Auto (Unsp spec) 15.3 % Low 19-[address] [facility] BUN/creatinine ratioOrdered By: Spenser Rappdeiondestiny on 07-26-2024 Urea nitrogen/Creatinine [Mass ratio] 19.8 mg/mg 10-[address] [facility] BUN/creatinine ratio 19.8 RATIO 10- [facility] Basic Metabolic Profile (BMP )on 07-26-2024 BUN/CRE 19.8 RATIO Normal 10-[address] [facility] Comment on above: Performed By: #### L 500.2500 ####[facility] [address] [place], [address] Calcium [Mass/Vol] 9.8 mg/dL Normal 7.6-11.0 [facility] Comment on above: Performed By: #### L 500.2500 ####[facility] [address] [place], [address] Chloride [Moles/Vol] 101 mmol/L Normal 98-108 [facility] Comment on above: Performed By: #### L 500.2500 ####[facility] [address] [place], [address] CO2 [Moles/Vol] 25.6 mmol/L Normal 21.0-32.[address] [facility] Comment on above: Performed By: #### L 500.2500 ####[facility] [address] [place], [address] Creatinine [Mass/Vol] 1.50 mg/dL High 0.70-1.20 [facility] Comment on above: Performed By: #### L 500.2500 ####[facility] [address] [place], [address] GAP 16 High 5-[address] [facility] Comment on above: Performed By: #### L 500.2500 ####[facility] [address] [place], [address] GFR/1.73 sq M.predicted among non-blacks MDRD (S/P/Bld) [Vol rate/Area] 47 mL/min/{1.73_m2} Low >[address] [facility] Comment on above: Result Comment: mL/m in/1.73m2 CKD-EPI Creatinine Equation (2020) Performed By: #### L 500.2500 ####[facility] [address] [place], [address] Glucose [Mass/Vol] 93 mg/dL Normal 70-99 [facility] Comment on above: Performed By: #### L 500.2500 ####[facility] [address] [place], [address] Potassium [Moles/Vol] 3.3 mmol/L Normal 3.3-5.1 [facility] Comment on above: Performed By: #### L 500.2500 ####[facility] [address] [place], [address] Sodium [Moles/Vol] 142 mmol/L Normal 133-145 [facility] Comment on above: Performed By: #### L 500.2500 ####[facility] [address] [place], [address] Urea nitrogen [Mass/Vol] 30 mg/dL High 4-[address] [facility] Comment on above: Performed By: #### L 500.2500 ####[facility] [address] [place], [address] Basophil percentageOrdered B y: Nanette Macdonald on 07-26-2024 Basophils/100 WBC (Bld) 1.3 % High 0-1 [facility] Basophil percentage 1.3 % High 0-1 [facility] CBC W/Diff, Automatedon 07-02 Absolute Lymph 1.15 X10 3/uL Normal 0.83-4.[address] [facility] Comment on above: Performed By: #### L 100.0100 ####[facility] [address] [place], [address] Absolute Neut 5.3 X10 3/uL Normal 2.0-7.[address] [facility] Comment on above: Performed By: #### L 100.0100 ####[facility] [address] [place], [address] Basophils/100 WBC (Bld) 1.3 % High 0-1 [facility] Comment on above: Performed By: #### L 100.0100 ####[facility] [address] [place], [address] Eosinophils/100 WBC (Bld) 6.0 % High 0-[address] [facility] Comment on above: Performed By: #### L 100.0100 ####[facility] [address] [place], [address] Erythrocyte distribution width (RBC) [Ratio] 12.2 % Normal 11.6-14.[address] [facility] Comment on above: Performed By: #### L 100.0100 ####[facility] [address] [place], [address] Hematocrit (Bld) [Volume fraction] 40.6 % Normal 40-[address] [facility] Comment on above: Performed By: #### L 100.0100 ####[facility] [address] [place], [address] Hemoglobin (Bld) [Mass/Vol] 14.0 g/dL Normal 13.0-16.[address] [facility] Comment on above: Performed By: #### L 100.0100 ####[facility] [address] [place], [address] IG% 0.400 Normal 0.0-0.[address] [facility] Comment on above: Result Comment: IG% - Immature Granulocytes (promyelocytes, myelocytes andmetamyelocytes) > 1% indicates that a LEFT SHIFT is Present. Performed By: #### L 100.0100 ####[facility] [address] [place], [address] Lymphocytes/100 WBC (Bld) 15.3 % Low 19-[address] [facility] Comment on above: Performed By: #### L 100.0100 ####[facility] [address] [place], [address] MCH (RBC) [Entitic mass] 32.5 pg High 27.0-32.[address] [facility] Comment on above: Performed By: #### L 100.0100 ####[facility] [address] [place], [address] MCHC (RBC) [Mass/Vol] 34.5 g/dL Normal 32-36 [facility] Comment on above: Performed By: #### L 100.0100 ####[facility] [address] [place], [address] MCV (RBC) [Entitic vol] 94.2 fL High 80-94 [facility] Comment on above: Performed By: #### L 100.0100 ####[facility] [address] [place], [address] Monocytes/100 WBC (Bld) 6.4 % Normal 0-10 [facility] Comment on above: Performed By: #### L 100.0100 ####[facility] [address] [place], [address] Neutrophils/100 WBC (Bld) 70.6 % High 47-[address] [facility] Comment on above: Performed By: #### L 100.0100 ####[facility] [address] [place], [address] Nucleated RBC (Bld) [#/Vol] 0 10*3/uL Normal 0-[address] [facility] Comment on above: Performed By: #### L 100.0100 ####[facility] [address] [place], [address] Platelet mean volume (Bld) [Entitic vol] 10.5 fL Normal 6.2-12.[address] [facility] [address] [facility] Comment on above: Performed By: #### L 100.0100 ####[facility] [address] [place], [address] Platelets (Bld) [#/Vol] 380 10*3/uL Normal 150-[address] [facility] Comment on above: Performed By: #### L 100.0100 ####[facility] [address] [place], [address] RBC (Bld) [#/Vol] 4.31 10*6/uL Low 4.6-6.2 [facility] Comment on above: Performed By: #### L 100.0100 ####[facility] [address] [place], [address] RDW SD 42.5 fl Normal 35.1-43.[address] [facility] Comment on above: Performed By: #### L 100.0100 ####[facility] [address] [place], [address] WBC (Bld) [#/Vol] 7.5 10*3/uL Normal 4.4-11.0 [facility] Comment on above: Performed By: #### L 100.0100 ####[facility] [address] [place], [address] Calcium [Mass/Vol]Ordered By : Spenser Sanchez on 07-26-2024 Serum or plasma calcium measurement (mass/volume) 9.8 mg/dL 7.6-11.[address] [facility] Carbon dioxide, total [Moles /volume] in Central venous bloodOrdered By: Spenser Sanchez on 07-26-2024 CO2 [Moles/Vol] 25.6 mmol/L 21.0-32.[address] [facility] Carbon dioxide, total [Moles/volume] in Central venous blood 25.6 mmol/L 21.0-32.[address] [facility] Chloride assayOrdered By: Olaf Sanchez on 07-26-2024 Chloride [Moles/Vol] 101 mmol/L 98-108 [facility] Chloride assay 101 mmol/L 98-[address] [facility] Creatinine [Mass/Vol]Ordered By: Spenser Sanchez on 07-26-2024 Serum creatinine measurement (mass/volume) 1.50 mg/dL High 0.70-1.[address] [facility] Eosinophil percentageOrdered By: Nanette Macdonald on 07-26-2024 Eosinophils/100 WBC (Bld) 6.0 % High 0-[address] [facility] Eosinophil percentage 6.0 % High 0-5 [facility] Erythrocyte distribution wid th (RBC) [Ratio]Ordered By: Nanette Macdonald on 07-26-2024 Erythrocyte distribution width ratio 12.2 % 11.6-14.[address] [facility] Erythrocyte distribution wid th ratioOrdered By: Nanette Macdonald on 07-26-2024 Erythrocyte distribution width (RBC) [Ratio] 12.2 % 11.6-14.[address] [facility] Erythrocyte distribution wid th standard deviationOrdered By: Nanette Macdonald on 07-26-2024 Erythrocyte distribution width (RBC) [Ratio] 42.5 fl 35.1-43.[address] [facility] Erythrocyte distribution width standard deviation 42.5 fl 35.1-43.[address] [facility] GFR/1.73 sq M.predicted giorgi g non-blacks MDRD (S/P/Bld) [Vol rate/Area]Ordered By: Spenser Sanchez on 07-26-2024 Glomerular filtration rate (GFR) estimation/1.73 sq m using serum, plasma, or whole b 47 Low >[address] [facility] Glomerular filtration rate ( GFR) estimation/1.73 sq m using serum, plasma, or whole bOrdered By: Spenser Sanchez on 07-26-2024 GFR/1.73 sq M.predicted among non-blacks MDRD (S/P/Bld) [Vol rate/Area] 47 mL/min/{1.73_m2} Low >[address] [facility] Glucose [Mass/Vol]Ordered By : Spenser Sanchez on 07-26-2024 Serum glucose measurement (mass/volume) 93 mg/dL 70-[address] [facility] Hematocrit Auto (Bld) [Volum e fraction]Ordered By: Nanette Macdonald on 07-26-2024 Hematocrit (Bld) [Volume fraction] 40.6 % 40-[address] [facility] Automated blood hematocrit (percentage) 40.6 % 40-[address] [facility] Hemoglobin measurementOrdere d By: Nanette Macdonald on 07-26-2024 Hemoglobin (Bld) [Mass/Vol] 14.0 g/dL 13.0-16.[address] [facility] Hemoglobin measurement 14.0 g/dL 13.0-16.5 [facility] Immature granulocytes/100 WB C Auto (Bld)Ordered By: Nanette Macdonald on 07-26-2024 Immature granulocytes/100 WBC (Bld) 0.400 % 0.0-0.[address] [facility] Automated immature granulocyte percentage 0.400 % 0.0-0.[address] [facility] Lymphocytes Auto (Unsp spec) [#/Vol]Ordered By: Nanette Macdonald on 07-26-2024 Absolute lymphocyte count 1.15 X10^3/uL 0.83-4.[address] [facility] Lymphocytes/100 WBC Auto (Un sp spec)Ordered By: Nanette Macdonald on 07-26-2024 Automated lymphocyte count as percentage of total leukocytes 15.3 % Low 19-[address] [facility] MCV (RBC) [Entitic vol]Order ed By: Nanette Macdonald on 07-26-2024 MCV (mean corpuscular volume) determination 94.2 fL High 80-[address] [facility] MCV (mean corpuscular volume ) determinationOrdered By: Nanette Macdonald on 07-26-2024 MCV (RBC) [Entitic vol] 94.2 fL High 80-94 [facility] Mean corpuscular hemoglobin (MCH) determinationOrdered By: Nanette Macdonald on 07-26-2024 MCH (RBC) [Entitic mass] 32.5 pg High 27.0-32.[address] [facility] Mean corpuscular hemoglobin (MCH) determination 32.5 pg High 27.0-32.[address] [facility] Mean corpuscular hemoglobin concentration (MCHC) determinationOrdered By: Nanette Macdonald on 07-26-2024 Mean corpuscular hemoglobin concentration (MCHC) determination 34.5 g/dL 32-[address] [facility] Mean platelet volume determi nationOrdered By: Nanette Macdonald on 07-26-2024 Mean platelet volume determination 10.5 fl 6.2-12.[address] [facility] Monocyte percentageOrdered B y: Nanette Macdonald on 07-26-2024 Monocytes/100 WBC (Bld) 6.4 % 0-10 [facility] Monocyte percentage 6.4 % 0-10 [facility] Neutrophil percentageOrdered By: Nanette Macdonald on 07-26-2024 Neutrophils/100 WBC (Bld) 70.6 % High 47-[address] [facility] Neutrophil percentage 70.6 % High 47-70 [facility] Nucleated red blood cell per centageOrdered By: Nanette Macdonald on 07-26-2024 Nucleated red blood cell percentage 0 % 0-[address] [facility] Platelet countOrdered By: Serjio Macdonald on 07-26-2024 Platelets (Bld) [#/Vol] 380 10*3/uL 150-[address] [facility] Platelet count 380 K/mm3 150-[address] [facility] Potassium (Unsp spec) [Mass/ Vol]Ordered By: Spenser Sanchez on 07-26-2024 Potassium measurement (mass/volume) 3.3 mmol/L 3.3-5.[address] [facility] Potassium measurement (mass/ volume)Ordered By: Spenser Sanchez on 07-26-2024 Potassium (Unsp spec) [Mass/Vol] 3.3 mmol/L 3.3-5.[address] [facility] RBC Auto (Bld) [#/Vol]Ordere d By: Nanette Macdonald on 07-26-2024 RBC (Bld) [#/Vol] 4.31 10*6/uL Low 4.6-6.2 [facility] Automated blood erythrocyte count 4.31 M/mm3 Low 4.6-6.[address] [facility] Serum creatinine measurement (mass/volume)Ordered By: Spenser Sanchez on 07-26-2024 Creatinine [Mass/Vol] 1.50 mg/dL High 0.70-1.20 [facility] Serum glucose measurement (m ass/volume)Ordered By: Spenser Sanchez on 07-26-2024 Glucose [Mass/Vol] 93 mg/dL 70-99 [facility] Serum or plasma calcium jenna urement (mass/volume)Ordered By: Spenser Sanchez on 07-26-2024 Calcium [Mass/Vol] 9.8 mg/dL 7.6-11.0 [facility] Serum or plasma urea nitroge n measurement (mass/volume)Ordered By: Spenser Sanchez on 07-26-2024 Urea nitrogen [Mass/Vol] 30 mg/dL High 08-[address] [facility] Sodium levelOrdered By: Quincy herndonsebas Laura on 07-26-2024 Sodium [Moles/Vol] 142 mmol/L 133-145 [facility] Sodium level 142 mmol/L 133-[address] [facility] Urea nitrogen [Mass/Vol]Orde red By: Spenser Sanchez on 07-26-2024 Serum or plasma urea nitrogen measurement (mass/volume) 30 mg/dL High - [facility] White blood cell (WBC) count Ordered By: Nanette Macdonald on 07-26-2024 WBC (Bld) [#/Vol] 7.5 10*3/uL 4.4-11.0 [facility] White blood cell (WBC) count 7.5 K/mm3 4.4-11.[address] [facility] Colonoscopy Reporton 025 Colonoscopy Report Normal [facility] MR/POSTOP.ANEon 07-18-2024 MR/POSTOP.ANE Normal [facility] MR/[id number] 07-18-2024 MR/POSTOPAN2 Normal [facility] Surgery Specimen Level Vinayak 07-18-2024 Surgery Specimen Level IV Normal [facility] Comment on above: Performed By: #### P SUIV ####[facility] [address] [place], [address] MR/PAT.ANEon 07-17-2024 MR/PAT.ANE Normal [facility] Pulmonary Visit Reporton Pulmonary Visit Report Normal [facility] Chest without Contraston Chest without Contrast Normal [facility] MR/BMS.BVSon 05-11-2024 MR/BMS.BVS Normal [facility] Abd Aortic/IVC Duplex scanon 05-04-2024 Abd Aortic/IVC Duplex scan Normal [facility] Carotid Duplex Ultrasoundon 05-04-2024 Carotid Duplex Ultrasound Normal [facility] 12 Lead EKGon 04-30-2024 12 Lead EKG Normal [facility] Absolute neutrophil countOrd ered By: Faizan Dotson on 04-30-2024 Absolute neutrophil count 8.6 X10^3/uL High 2.0-7.[address] [facility] BNP (brain natriuretic pepti de measurement)Ordered By: Faizan Dotson on 04-30-2024 BNP (brain natriuretic peptide measurement) 73.3 pg/mL 0-[address] [facility] BNP,B-Type NATRIURETIC PEPTI Cooper 04-30-2024 Natriuretic peptide B (Bld) [Mass/Vol] 73.3 pg/mL Normal 0-[address] [facility] Comment on above: Performed By: #### L 503.6620, L500.2500, L100.0100, L501.4020 ####[facility] [address] [place], [address] Basic Metabolic Profile (BMP )on 04-30-2024 BUN/CRE 14.1 RATIO Normal 10-[address] [facility] Comment on above: Order Comment: 'TROP ' Serial specimen #1, #2 or #3: 1 Performed By: #### L 503.6620, L500.2500, L100.0100, L501.4020 ####[facility] [address] [place], [address] CA,Total 9.3 mg/dL Normal 8.5-10.[address] [facility] Comment on above: Order Comment: 'TROP ' Serial specimen #1, #2 or #3: 1 Performed By: #### L 503.6620, L500.2500, L100.0100, L501.4020 ####[facility] [address] [place], [address] Chloride [Moles/Vol] 106 mmol/L Normal 98-107 [facility] Comment on above: Order Comment: 'TROP ' Serial specimen #1, #2 or #3: 1 Performed By: #### L 503.6620, L500.2500, L100.0100, L501.4020 ####[facility] [address] [place], [address] CO2 [Moles/Vol] 27.0 mmol/L Normal 21.0-32.[address] [facility] Comment on above: Order Comment: 'TROP ' Serial specimen #1, #2 or #3: 1 Performed By: #### L 503.6620, L500.2500, L100.0100, L501.4020 ####[facility] [address] [place], [address] Creatinine [Mass/Vol] 1.42 mg/dL High 0.70-1.30 [facility] Comment on above: Order Comment: 'TROP ' Serial specimen #1, #2 or #3: 1 Result Comment: The validity of the calculated GFR GFRAA in patients over70 years has not been determined. Clinical correlation isessential. Performed By: #### L 503.6620, L500.2500, L100.0100, L501.4020 ####[facility] [address] [place], [address] ECRCL 37.73 ml/min Normal [facility] Comment on above: Order Comment: 'TROP ' Serial specimen #1, #2 or #3: 1 Performed By: #### L 503.6620, L500.2500, L100.0100, L501.4020 ####[facility] [address] [place], [address] EST GFR - AA 62 mL/min Normal >[address] [facility] Comment on above: Order Comment: 'TROP ' Serial specimen #1, #2 or #3: 1 Result Comment: Afri can Bahraini GFR Calc Performed By: #### L 503.6620, L500.2500, L100.0100, L501.4020 ####[facility] [address] [place], [address] GAP 8 Normal 5-[address] [facility] Comment on above: Order Comment: 'TROP ' Serial specimen #1, #2 or #3: 1 Performed By: #### L 503.6620, L500.2500, L100.0100, L501.4020 ####[facility] [address] [place], [address] GFR/1.73 sq M.predicted among non-blacks MDRD (S/P/Bld) [Vol rate/Area] 51 mL/min/{1.73_m2} Low >[address] [facility] Comment on above: Order Comment: 'TROP ' Serial specimen #1, #2 or #3: 1 Result Comment: Non- GFR Calc Performed By: #### L 503.6620, L500.2500, L100.0100, L501.4020 ####[facility] [address] [place], [address] Glucose [Mass/Vol] 114 mg/dL High 74-106 [facility] Comment on above: Order Comment: 'TROP ' Serial specimen #1, #2 or #3: 1 Result Comment: Fast ing Glucose result from 100 to 125 mg/dLsuggests IMPAIRED HOMEOSTASIS per A.D.A. criteria. Performed By: #### L 503.6620, L500.2500, L100.0100, L501.4020 ####[facility] [address] [place], [address] Potassium [Moles/Vol] 3.5 mmol/L Normal 3.5-5.1 [facility] Comment on above: Order Comment: 'TROP ' Serial specimen #1, #2 or #3: 1 Performed By: #### L 503.6620, L500.2500, L100.0100, L501.4020 ####[facility] [address] [place], [address] Sodium [Moles/Vol] 141 mmol/L Normal 136-145 [facility] Comment on above: Order Comment: 'TROP ' Serial specimen #1, #2 or #3: 1 Performed By: #### L 503.6620, L500.2500, L100.0100, L501.4020 ####[facility] [address] [place], [address] Urea nitrogen [Mass/Vol] 20 mg/dL High 7-[address] [facility] Comment on above: Order Comment: 'TROP ' Serial specimen #1, #2 or #3: 1 Performed By: #### L 503.6620, L500.2500, L100.0100, L501.4020 ####[facility] [address] [place], [address] Basophil percentageOrdered B y: Faizan Dotson on 04-30-2024 Basophil percentage 0.5 % 0-1 [facility] Blood urea nitrogen (BUN)/cr eatinine ratioOrdered By: Faizan Dotson on 04-30-2024 Blood urea nitrogen (BUN)/creatinine ratio 14.1 RATIO 10-[address] [facility] CBC W/Diff, Automatedon - Absolute Lymph 0.63 X10 3/uL Low 0.83-4.[address] [facility] Comment on above: Performed By: #### L 503.6620, L500.2500, L100.0100, L501.4020 ####[facility] [address] [place], [address] Absolute Neut 8.6 X10 3/uL High 2.0-7.[address] [facility] Comment on above: Performed By: #### L 503.6620, L500.2500, L100.0100, L501.4020 ####[facility] [address] [place], [address] Basophils/100 WBC (Bld) 0.5 % Normal 0-1 [facility] Comment on above: Performed By: #### L 503.6620, L500.2500, L100.0100, L501.4020 ####[facility] [address] [place], [address] Eosinophils/100 WBC (Bld) 2.7 % Normal 0-[address] [facility] Comment on above: Performed By: #### L 503.6620, L500.2500, L100.0100, L501.4020 ####[facility] [address] [place], [address] Erythrocyte distribution width (RBC) [Ratio] 14.6 % Normal 11.6-14.[address] [facility] Comment on above: Performed By: #### L 503.6620, L500.2500, L100.0100, L501.4020 ####[facility] [address] [place], [address] Hematocrit (Bld) [Volume fraction] 37.8 % Low 40-[address] [facility] Comment on above: Performed By: #### L 503.6620, L500.2500, L100.0100, L501.4020 ####[facility] [address] [place], [address] Hemoglobin (Bld) [Mass/Vol] 12.7 g/dL Low 13.0-16.[address] [facility] Comment on above: Performed By: #### L 503.6620, L500.2500, L100.0100, L501.4020 ####[facility] [address] [place], [address] IG% 0.700 Normal 0.0-0.[address] [facility] Comment on above: Result Comment: IG% - Immature Granulocytes (promyelocytes, myelocytes andmetamyelocytes) > 1% indicates that a LEFT SHIFT is Present. Performed By: #### L 503.6620, L500.2500, L100.0100, L501.4020 ####[facility] [address] [place], [address] Lymphocytes/100 WBC (Bld) 6.2 % Low 19-[address] [facility] Comment on above: Performed By: #### L 503.6620, L500.2500, L100.0100, L501.4020 ####[facility] [address] [place], [address] MCH (RBC) [Entitic mass] 34.5 pg High 27.0-32.[address] [facility] Comment on above: Performed By: #### L 503.6620, L500.2500, L100.0100, L501.4020 ####[facility] [address] [place], [address] MCHC (RBC) [Mass/Vol] 33.6 g/dL Normal 32-36 [facility] Comment on above: Performed By: #### L 503.6620, L500.2500, L100.0100, L501.4020 ####[facility] [address] [place], [address] MCV (RBC) [Entitic vol] 102.7 fL High 80-94 [facility] Comment on above: Performed By: #### L 503.6620, L500.2500, L100.0100, L501.4020 ####[facility] [address] [place], [address] Monocytes/100 WBC (Bld) 5.9 % Normal 0-10 [facility] Comment on above: Performed By: #### L 503.6620, L500.2500, L100.0100, L501.4020 ####[facility] [address] [place], [address] Neutrophils/100 WBC (Bld) 84.0 % High 47-[address] [facility] Comment on above: Performed By: #### L 503.6620, L500.2500, L100.0100, L501.4020 ####[facility] [address] [place], [address] Nucleated RBC (Bld) [#/Vol] 0 10*3/uL Normal 0-[address] [facility] Comment on above: Performed By: #### L 503.6620, L500.2500, L100.0100, L501.4020 ####[facility] [address] [place], [address] Platelet mean volume (Bld) [Entitic vol] 9.0 fL Normal 6.2-12.[address] [facility] Comment on above: Performed By: #### L 503.6620, L500.2500, L100.0100, L501.4020 ####[facility] [address] [place], [address] Platelets (Bld) [#/Vol] 335 10*3/uL Normal 150-[address] [facility] Comment on above: Performed By: #### L 503.6620, L500.2500, L100.0100, L501.4020 ####[facility] [address] [place], [address] RBC (Bld) [#/Vol] 3.68 10*6/uL Low 4.6-6.2 [facility] Comment on above: Performed By: #### L 503.6620, L500.2500, L100.0100, L501.4020 ####[facility] [address] [place], [address] RDW SD 55.5 fl High 35.1-43.[address] [facility] Comment on above: Performed By: #### L 503.6620, L500.2500, L100.0100, L501.4020 ####[facility] [address] [place], [address] WBC (Bld) [#/Vol] 10.2 10*3/uL Normal 4.4-11.0 [facility] Comment on above: Performed By: #### L 503.6620, L500.2500, L100.0100, L501.4020 ####[facility] [address] [place], [address] Calcium [Mass/Vol]Ordered By : Faizan Dotson on 04-30-2024 Serum or plasma calcium measurement (mass/volume) 9.3 mg/dL 8.5-10.[address] [facility] Carbon dioxide measurementOr dered By: Faizan Dotson on 04-30-2024 Carbon dioxide measurement 27.0 mmol/L 21.0-32.[address] [facility] Chest 1 View (Portable)on Chest 1 View (Portable) Normal [facility] Chloride measurementOrdered By: Faizan Dotson on 04-30-2024 Chloride measurement 106 mmol/L 98-107 [facility] Creatinine [Mass/Vol]Ordered By: Faizan Dotson on 04-30-2024 Serum or plasma creatinine measurement (mass/volume) 1.42 mg/dL High 0.70-1.[address] [facility] Emergency Department Summary on 04-30-2024 Emergency Department Summary Normal [facility] Eosinophil percentageOrdered By: Faizan Dotson on 04-30-2024 Eosinophil percentage 2.7 % 0-5 [facility] Erythrocyte distribution wid th (RBC) [Ratio]Ordered By: Faizan Dotson on 04-30-2024 Erythrocyte distribution width ratio 14.6 % 11.6-14.[address] [facility] Erythrocyte distribution wid th standard deviationOrdered By: Faizan Dotson on 04-30-2024 Erythrocyte distribution width standard deviation 55.5 fl High 35.1-43.[address] [facility] Estimated glomerular filtrat ion rate (GFR) AmericanOrdered By: Faizan Dotson on 04-30-2024 Estimated glomerular filtration rate (GFR) 62 mL/min >[address] [facility] Estimation of creatinine terry aranceOrdered By: Faizan Dotson on 04-30-2024 Estimation of creatinine clearance 37.73 ml/min [facility] Glomerular filtration rate ( GFR) estimationOrdered By: Faizan Dotson on 04-30-2024 Glomerular filtration rate (GFR) estimation 51 mL/min Low >[address] [facility] Glucose measurementOrdered B y: Faizan Dotson on 04-30-2024 Glucose measurement 114 mg/dL High 74-106 [facility] Hematocrit Auto (Bld) [Volum e fraction]Ordered By: Faizan Dotson on 04-30-2024 Automated blood hematocrit (percentage) 37.8 % Low 40-[address] [facility] Hemoglobin measurementOrdere d By: Faizan Dotson on 04-30-2024 Hemoglobin measurement 12.7 g/dL Low 13.0-16.5 [facility] Immature granulocytes/100 WB C Auto (Bld)Ordered By: Faizan Dotson on 04-30-2024 Automated immature granulocyte percentage 0.700 % 0.0-0.[address] [facility] L501.4020on 04-30-2024 TROPONIN-I HS 8 pg/mL Normal 3.0-78.[address] [facility] Comment on above: Order Comment: 'TROP ' Serial specimen #1, #2 or #3: 1 Result Comment: José cuellar Note: New Test Units and Gender Specific Reference Ranges. For more information see Policy Stat Procedure [place] High Sensitivity Troponin (TNIH) and attachments. Performed By: #### L 503.6620, L500.2500, L100.0100, L501.4020 ####[facility] [address] [facility] [place], [address] Lymphocytes Auto (Unsp spec) [#/Vol]Ordered By: Faizan Dotson on 04-30-2024 Absolute lymphocyte count 0.63 X10^3/uL Low 0.83-4.[address] [facility] Lymphocytes/100 WBC Auto (Un sp spec)Ordered By: Faizan Dotson on 04-30-2024 Automated lymphocyte count as percentage of total leukocytes 6.2 % Low 19-[address] [facility] M100.678on 04-30-2024 M100.678 Pending SARS-CoV-2 (COVID 19) Negative INFLUENZA A Negative INFLUENZA B Negative RSV PCR Negative Normal [facility] Comment on above: Performed By: #### M [address] ####[facility] [address] [place], [address] MCV (RBC) [Entitic vol]Order ed By: Faizan Dotson on 04-30-2024 MCV (mean corpuscular volume) determination 102.7 fL High 80-[address] [facility] Mean corpuscular hemoglobin (MCH) determinationOrdered By: Faizan Dotson on 04-30-2024 Mean corpuscular hemoglobin (MCH) determination 34.5 pg High 27.0-32.[address] [facility] Mean corpuscular hemoglobin concentration (MCHC) determinationOrdered By: Faizan Dotson on 04-30-2024 Mean corpuscular hemoglobin concentration (MCHC) determination 33.6 g/dL 32-[address] [facility] Mean platelet volume determi nationOrdered By: Faizan Dotson on 04-30-2024 Mean platelet volume determination 9.0 fl 6.2-12.[address] [facility] Monocyte percentageOrdered B y: Faizan Dotson on 04-30-2024 Monocyte percentage 5.9 % 0-10 [facility] Neutrophil percentageOrdered By: Faizan Dotson on 04-30-2024 Neutrophil percentage 84.0 % High 47-70 [facility] Nucleated red blood cell per centageOrdered By: Faizan Dotson on 04-30-2024 Nucleated red blood cell percentage 0 % 0-[address] [facility] Platelet countOrdered By: angel Dotson on 04-30-2024 Platelet count 335 K/mm3 150-[address] [facility] Potassium measurementOrdered By: Faizan Dotson on 04-30-2024 Potassium measurement 3.5 mmol/L 3.5-5.1 [facility] RBC Auto (Bld) [#/Vol]Ordere d By: Faizan Dotson on 04-30-2024 Automated blood erythrocyte count 3.68 M/mm3 Low 4.6-6.[address] [facility] Serum anion gap measurementO rdered By: Faizan Dotson on 04-30-2024 Serum anion gap measurement 8 5-[address] [facility] Sodium levelOrdered By: Jay Dotson on 04-30-2024 Sodium level 141 mmol/L 136-[address] [facility] Troponin IOrdered By: Faizan Dotson on 04-30-2024 Troponin I 8 pg/mL 3.0-78.[address] [facility] Urea nitrogen [Mass/Vol]Orde red By: Faizan Dotson on 04-30-2024 Serum or plasma urea nitrogen measurement (mass/volume) 20 mg/dL High -[address] [facility] White blood cell (WBC) count Ordered By: Faizan Dotson on 04-30-2024 White blood cell (WBC) count 10.2 K/mm3 4.4-11.[address] [facility] Office Visit Reporton 2023 Office Visit Report Normal [facility] Basic Metabolic Profile (BMP )on 04-19-2024 BUN/CRE 18.0 RATIO Normal - [facility] Comment on above: Performed By: #### L 500.2500 ####[facility] [address] [place], [address] CA,Total 9.8 mg/dL Normal 8.5-10.[address] [facility] Comment on above: Performed By: #### L 500.2500 ####[facility] [address] [place], [address] Chloride [Moles/Vol] 102 mmol/L Normal 98-107 [facility] Comment on above: Performed By: #### L 500.2500 ####[facility] [address] [place], [address] CO2 [Moles/Vol] 32.0 mmol/L Normal 21.0-32.[address] [facility] Comment on above: Performed By: #### L 500.2500 ####[facility] [address] [place], [address] Creatinine [Mass/Vol] 1.67 mg/dL High 0.70-1.30 [facility] Comment on above: Result Comment: The validity of the calculated GFR GFRAA in patients over70 years has not been determined. Clinical correlation isessential. Performed By: #### L 500.2500 ####[facility] [address] [place], [address] EST GFR - AA 51 mL/min Low >[address] [facility] Comment on above: Result Comment: Afri can Bahraini GFR Calc Performed By: #### L 500.2500 ####[facility] [address] [place], [address] GAP 6 Normal 5-[address] [facility] Comment on above: Performed By: #### L 500.2500 ####[facility] [address] [place], [address] GFR/1.73 sq M.predicted among non-blacks MDRD (S/P/Bld) [Vol rate/Area] 42 mL/min/{1.73_m2} Low >[address] [facility] Comment on above: Result Comment: Non- GFR Calc Performed By: #### L 500.2500 ####[facility] [address] [place], [address] Glucose [Mass/Vol] 93 mg/dL Normal 74-106 [facility] Comment on above: Performed By: #### L 500.2500 ####[facility] [address] [place], [address] Potassium [Moles/Vol] 2.8 mmol/L Low 3.5-5.1 [facility] Comment on above: Performed By: #### L 500.2500 ####[facility] [address] [place], [address] Sodium [Moles/Vol] 140 mmol/L Normal 136-145 [facility] Comment on above: Performed By: #### L 500.2500 ####[facility] [address] [place], [place], [address] Urea nitrogen [Mass/Vol] 30 mg/dL High -[address] [facility] Comment on above: Performed By: #### L 500.2500 ####[facility] [address] [place], [address] Blood urea nitrogen (BUN)/cr eatinine ratioOrdered By: Spenser Sanchez on 04-19-2024 Blood urea nitrogen (BUN)/creatinine ratio 18.0 RATIO 10-[address] [facility] Calcium [Mass/Vol]Ordered By : Spenser Sanchez on 04-19-2024 Serum or plasma calcium measurement (mass/volume) 9.8 mg/dL 8.5-10.[address] [facility] Carbon dioxide measurementOr dered By: Spenser Sanchez on 04-19-2024 Carbon dioxide measurement 32.0 mmol/L 21.0-32.[address] [facility] Chloride measurementOrdered By: Spenser Sanchez on 04-19-2024 Chloride measurement 102 mmol/L 98-107 [facility] Creatinine [Mass/Vol]Ordered By: Spenser Sanchez on 04-19-2024 Serum or plasma creatinine measurement (mass/volume) 1.67 mg/dL High 0.70-1.[address] [facility] Estimated glomerular filtrat ion rate (GFR) AmericanOrdered By: Spenser Sanchez on 04-19-2024 Estimated glomerular filtration rate (GFR) 51 mL/min Low >[address] [facility] Glomerular filtration rate ( GFR) estimationOrdered By: Spenser Sanchez on 04-19-2024 Glomerular filtration rate (GFR) estimation 42 mL/min Low >[address] [facility] Glucose measurementOrdered B y: Spenser Sanchez on 04-19-2024 Glucose measurement 93 mg/dL 74-106 [facility] Internal Medicine Office Vis iton 04-19-2024 Internal Medicine Office Visit Normal [facility] Potassium measurementOrdered By: Spenser Sanchez on 04-19-2024 Potassium measurement 2.8 mmol/L Low 3.5-5.1 [facility] Serum anion gap measurementO rdered By: Spenser Sanchez on 04-19-2024 Serum anion gap measurement 6 5-[address] [facility] Sodium levelOrdered By: Quincy pendletondestiny Laura on 04-19-2024 Sodium level 140 mmol/L 136-[address] [facility] Urea nitrogen [Mass/Vol]Orde red By: Spenser Sanchez on 04-19-2024 Serum or plasma urea nitrogen measurement (mass/volume) 30 mg/dL High 7-[address] [facility] 12 Lead EKGon 04-11-2024 12 Lead EKG Normal [facility] ALP [Catalytic activity/Vol] Ordered By: Xavi Almonte on 04-11-2024 Serum or plasma alkaline phosphatase measurement 73 U/L 45-[address] [facility] ALT [Catalytic activity/Vol] Ordered By: Xavi Almonte on 04-11-2024 Serum or plasma alanine aminotransferase (ALT) measurement 13 U/L Low 16-[address] [facility] Absolute neutrophil countOrd ered By: Xavi Almonte on 04-11-2024 Absolute neutrophil count 8.8 X10^3/uL High 2.0-7.[address] [facility] Albumin [Mass/Vol]Ordered By : Xavi Almonte on 04-11-2024 Serum or plasma albumin measurement (mass/volume) 3.3 g/dL 3.2-5.[address] [facility] Albumin to globulin ratioOrd ered By: Xavi Almonte on 04-11-2024 Albumin to globulin ratio 1.2 RATIO 0.9-2.[address] [facility] Automated lymphocyte count a s percentage of total leukocytesOrdered By: Xavi Almonte on 04-11-2024 Automated lymphocyte count as percentage of total leukocytes 7.4 % 0-[address] [facility] Basophil percentageOrdered B y: Xavi Almonte on 04-11-2024 Basophil percentage 0.7 % 0-1 [facility] Bilirubin, totalOrdered By: Xavi Almonte on 04-11-2024 Bilirubin, total 1.00 mg/dL 0.20-1.[address] [facility] Blood urea nitrogen (BUN)/cr eatinine ratioOrdered By: Xavi Almonte on 04-11-2024 Blood urea nitrogen (BUN)/creatinine ratio 20.7 RATIO High 10-[address] [facility] CBC W/Diff, Automatedon 12-1 0-2024 Absolute Lymph 0.79 X10 3/uL Low 0.83-4.[address] [facility] Comment on above: Performed By: #### L 100.0100, L501.5425, L500.4050 ####[facility] [address] [place], [address] Absolute Neut 8.8 X10 3/uL High 2.0-7.[address] [facility] Comment on above: Performed By: #### L 100.0100, L501.5425, L500.4050 ####[facility] [address] [place], [address] Basophils/100 WBC (Bld) 0.7 % Normal 0-1 [facility] Comment on above: Performed By: #### L 100.0100, L501.5425, L500.4050 ####[facility] [address] [place], [address] Eosinophils/100 WBC (Bld) 0.9 % Normal 0-[address] [facility] Comment on above: Performed By: #### L 100.0100, L501.5425, L500.4050 ####[facility] [address] [place], [address] Erythrocyte distribution width (RBC) [Ratio] 14.8 % High 11.6-14.[address] [facility] Comment on above: Performed By: #### L 100.0100, L501.5425, L500.4050 ####[facility] [address] [place], [address] Hematocrit (Bld) [Volume fraction] 38.4 % Low 40-[address] [facility] Comment on above: Performed By: #### L 100.0100, L501.5425, L500.4050 ####[facility] [address] [place], [address] Hemoglobin (Bld) [Mass/Vol] 13.5 g/dL Normal 13.0-16.[address] [facility] Comment on above: Performed By: #### L 100.0100, L501.5425, L500.4050 ####[facility] [address] [place], [address] IG% 0.400 Normal 0.0-0.[address] [facility] Comment on above: Result Comment: IG% - Immature Granulocytes (promyelocytes, myelocytes andmetamyelocytes) > 1% indicates that a LEFT SHIFT is Present. Performed By: #### L 100.0100, L501.5425, L500.4050 ####[facility] [address] [place], [address] Lymphocytes/100 WBC (Bld) 7.4 % Low 19-[address] [facility] Comment on above: Performed By: #### L 100.0100, L501.5425, L500.4050 ####[facility] [address] [place], [address] MCH (RBC) [Entitic mass] 34.5 pg High 27.0-32.[address] [facility] Comment on above: Performed By: #### L 100.0100, L501.5425, L500.4050 ####[facility] [address] [place], [address] MCHC (RBC) [Mass/Vol] 35.2 g/dL Normal 32-36 [facility] Comment on above: Performed By: #### L 100.0100, L501.5425, L500.4050 ####[facility] [address] [place], [address] MCV (RBC) [Entitic vol] 98.2 fL High 80-94 [facility] Comment on above: Performed By: #### L 100.0100, L501.5425, L500.4050 ####[facility] [address] [place], [address] Monocytes/100 WBC (Bld) 7.4 % Normal 0-10 [facility] Comment on above: Performed By: #### L 100.0100, L501.5425, L500.4050 ####[facility] [address] [place], [address] Neutrophils/100 WBC (Bld) 83.2 % High 47-[address] [facility] Comment on above: Performed By: #### L 100.0100, L501.5425, L500.4050 ####[facility] [address] [place], [address] Nucleated RBC (Bld) [#/Vol] 0 10*3/uL Normal 0-[address] [facility] Comment on above: Performed By: #### L 100.0100, L501.5425, L500.4050 ####[facility] [address] [place], [address] Platelet mean volume (Bld) [Entitic vol] 9.3 fL Normal 6.2-12.[address] [facility] Comment on above: Performed By: #### L 100.0100, L501.5425, L500.4050 ####[facility] [address] [place], [address] Platelets (Bld) [#/Vol] 325 10*3/uL Normal 150-[address] [facility] Comment on above: Performed By: #### L 100.0100, L501.5425, L500.4050 ####[facility] [address] [place], [address] RBC (Bld) [#/Vol] 3.91 10*6/uL Low 4.6-6.2 [facility] Comment on above: Performed By: #### L 100.0100, L501.5425, L500.4050 ####[facility] [address] [place], [address] RDW SD 53.6 fl High 35.1-43.[address] [facility] Comment on above: Performed By: #### L 100.0100, L501.5425, L500.4050 ####[facility] [address] [place], [address] WBC (Bld) [#/Vol] 10.6 10*3/uL Normal 4.4-11.0 [facility] Comment on above: Performed By: #### L 100.0100, L501.5425, L500.4050 ####[facility] [address] [place], [address] Calcium [Mass/Vol]Ordered By : Xavi Almonte on 04-11-2024 Serum or plasma calcium measurement (mass/volume) 9.4 mg/dL 8.5-10.[address] [facility] Carbon dioxide measurementOr dered By: Xavi Almonte on 04-11-2024 Carbon dioxide measurement 27.0 mmol/L 21.0-32.[address] [facility] Chest PA and Lateralon 04-11 Chest PA and Lateral Normal [facility] Chloride measurementOrdered By: Xavi Almonte on 04-11-2024 Chloride measurement 107 mmol/L 98-107 [facility] Comprehensive Metabolic Prof ilon 04-11-2024 Albumin [Mass/Vol] 3.3 g/dL Normal 3.2-5.0 [facility] Comment on above: Order Comment: 1Y Performed By: #### L 100.0100, L501.5425, L500.4050 ####[facility] [address] [place], [address] Albumin/Globulin [Mass ratio] 1.2 {ratio} Normal 0.9-2.[address] [facility] Comment on above: Order Comment: 1Y Performed By: #### L 100.0100, L501.5425, L500.4050 ####[facility] [address] [place], [address] ALK P 73 U/L Normal 45-[address] [facility] Comment on above: Order Comment: 1Y Performed By: #### L 100.0100, L501.5425, L500.4050 ####[facility] [address] [place], [address] ALT [Catalytic activity/Vol] 13 U/L Low 16-[address] [facility] Comment on above: Order Comment: 1Y Performed By: #### L 100.0100, L501.5425, L500.4050 ####[facility] [address] [place], [address] AST [Catalytic activity/Vol] 17 U/L Normal 15-[address] [facility] Comment on above: Order Comment: 1Y Performed By: #### L 100.0100, L501.5425, L500.4050 ####[facility] [address] [place], [address] Bilirubin [Mass/Vol] 1.00 mg/dL Normal 0.20-1.00 [facility] Comment on above: Order Comment: 1Y Result Comment: For patients on eltrombopag therapy, use of Dimension Chinle TBIL is not recommended. Performed By: #### L 100.0100, L501.5425, L500.4050 ####[facility] [address] [place], [address] BUN/CRE 20.7 RATIO High 10-[address] [facility] Comment on above: Order Comment: 1Y Performed By: #### L 100.0100, L501.5425, L500.4050 ####[facility] [address] [place], [address] CA,Total 9.4 mg/dL Normal 8.5-10.[address] [facility] Comment on above: Order Comment: 1Y Performed By: #### L 100.0100, L501.5425, L500.4050 ####[facility] [address] [place], [address] Chloride [Moles/Vol] 107 mmol/L Normal 98-107 [facility] Comment on above: Order Comment: 1Y Performed By: #### L 100.0100, L501.5425, L500.4050 ####[facility] [address] [place], [address] CO2 [Moles/Vol] 27.0 mmol/L Normal 21.0-32.[address] [facility] Comment on above: Order Comment: 1Y Performed By: #### L 100.0100, L501.5425, L500.4050 ####[facility] [address] [place], [address] Creatinine [Mass/Vol] 1.64 mg/dL High 0.70-1.30 [facility] Comment on above: Order Comment: 1Y Result Comment: The validity of the calculated GFR GFRAA in patients over70 years has not been determined. Clinical correlation isessential. Performed By: #### L 100.0100, L501.5425, L500.4050 ####[facility] [address] [place], [address] ECRCL 32.41 ml/min Normal [facility] Comment on above: Order Comment: 1Y Performed By: #### L 100.0100, L501.5425, L500.4050 ####[facility] [address] [place], [address] EST GFR - AA 52 mL/min Low >[address] [facility] Comment on above: Order Comment: 1Y Result Comment: Afri can Bahraini GFR Calc Performed By: #### L 100.0100, L501.5425, L500.4050 ####[facility] [address] [place], [address] GAP 8 Normal 5-[address] [facility] Comment on above: Order Comment: 1Y Performed By: #### L 100.0100, L501.5425, L500.4050 ####[facility] [address] [place], [address] GFR/1.73 sq M.predicted among non-blacks MDRD (S/P/Bld) [Vol rate/Area] 43 mL/min/{1.73_m2} Low >[address] [facility] Comment on above: Order Comment: 1Y Result Comment: Non- GFR Calc Performed By: #### L 100.0100, L501.5425, L500.4050 ####[facility] [address] [place], [address] Globulin (S) [Mass/Vol] 2.8 g/dL Normal 2.2-4.2 [facility] Comment on above: Order Comment: 1Y Performed By: #### L 100.0100, L501.5425, L500.4050 ####[facility] [address] [place], [address] Glucose [Mass/Vol] 104 mg/dL Normal 74-106 [facility] Comment on above: Order Comment: 1Y Result Comment: Fast ing Glucose result from 100 to 125 mg/dLsuggests IMPAIRED HOMEOSTASIS per A.D.A. criteria. Performed By: #### L 100.0100, L501.5425, L500.4050 ####[facility] [address] [place], [address] Potassium [Moles/Vol] 2.9 mmol/L Low 3.5-5.1 [facility] Comment on above: Order Comment: 1Y Performed By: #### L 100.0100, L501.5425, L500.4050 ####[facility] [address] [place], [address] Sodium [Moles/Vol] 141 mmol/L Normal 136-145 [facility] Comment on above: Order Comment: 1Y Performed By: #### L 100.0100, L501.5425, L500.4050 ####[facility] [address] [place], [address] T PROT 6.1 g/dL Low 6.4-8.[address] [facility] Comment on above: Order Comment: 1Y Performed By: #### L 100.0100, L501.5425, L500.4050 ####[facility] [address] [place], [address] Urea nitrogen [Mass/Vol] 34 mg/dL High 7-[address] [facility] Comment on above: Order Comment: 1Y Performed By: #### L 100.0100, L501.5425, L500.4050 ####[facility] [address] [place], [address] Creatinine [Mass/Vol]Ordered By: Xavi Almonte on 04-11-2024 Serum or plasma creatinine measurement (mass/volume) 1.64 mg/dL High 0.70-1.[address] [facility] Emergency Department Summary on 04-11-2024 Emergency Department Summary Normal [facility] Eosinophil percentageOrdered By: Xavi Almonte on 04-11-2024 Eosinophil percentage 0.9 % 0-5 [facility] Erythrocyte distribution wid th (RBC) [Ratio]Ordered By: Xavi Almonte on 04-11-2024 Erythrocyte distribution width ratio 14.8 % High 11.6-14.[address] [facility] Erythrocyte distribution wid th standard deviationOrdered By: Xavi Almonte on 04-11-2024 Erythrocyte distribution width standard deviation 53.6 fl High 35.1-43.[address] [facility] Estimated glomerular filtrat ion rate (GFR) AmericanOrdered By: Xavi Almonte on 04-11-2024 Estimated glomerular filtration rate (GFR) 52 mL/min Low >[address] [facility] Estimation of creatinine terry aranceOrdered By: Xavi Almonte on 04-11-2024 Estimation of creatinine clearance 32.41 ml/min [facility] Glomerular filtration rate ( GFR) estimationOrdered By: Xavimonisha Almonte on 04-11-2024 Glomerular filtration rate (GFR) estimation 43 mL/min Low >[address] [facility] Glucose measurementOrdered B y: Xavi Almonte on 04-11-2024 Glucose measurement 104 mg/dL 74-106 [facility] Hematocrit Auto (Bld) [Volum e fraction]Ordered By: Xavimonisha Almonte on 04-11-2024 Automated blood hematocrit (percentage) 38.4 % Low 40-[address] [facility] Hemoglobin measurementOrdere d By: Xavimonisha Almonte on 04-11-2024 Hemoglobin measurement 13.5 g/dL 13.0-16.5 [facility] Immature granulocytes/100 WB C Auto (Bld)Ordered By: Xavi Almonte on 04-11-2024 Automated immature granulocyte percentage 0.400 % 0.0-0.[address] [facility] L501.4020on 04-11-2024 TROPONIN-I HS 11 pg/mL Normal 3.0-78.[address] [facility] Comment on above: Result Comment: Plea se Note: New Test Units and Gender Specific Reference Ranges. For more information see Policy Stat Procedure Chinle High Sensitivity Troponin (TNIH) and attachments. Performed By: #### L 501.4020 ####[facility] [address] [facility] [place], [address] L501.5425on 04-11-2024 TROPONIN-I HS 11 pg/mL Normal 3.0-78.[address] [facility] Comment on above: Order Comment: 1Y Result Comment: Plea se Note: New Test Units and Gender Specific Reference Ranges. For more information see Policy Stat Procedure Chinle High Sensitivity Troponin (TNIH) and attachments. Performed By: #### L 100.0100, L501.5425, L500.4050 ####[facility] [address] [facility] [place], [address] Lymphocytes Auto (Unsp spec) [#/Vol]Ordered By: Xavimonisha Mjeiao on 04-11-2024 Absolute lymphocyte count 0.79 X10^3/uL Low 0.83-4.[address] [facility] MCV (RBC) [Entitic vol]Order ed By: Xavi Almonte on 04-11-2024 MCV (mean corpuscular volume) determination 98.2 fL High 80-[address] [facility] Mean corpuscular hemoglobin (MCH) determinationOrdered By: Xavi Almonte on 04-11-2024 Mean corpuscular hemoglobin (MCH) determination 34.5 pg High 27.0-32.[address] [facility] Mean corpuscular hemoglobin concentration (MCHC) determinationOrdered By: Xavi Almonte on 04-11-2024 Mean corpuscular hemoglobin concentration (MCHC) determination 35.2 g/dL 32-[address] [facility] Mean platelet volume determi nationOrdered By: Xavi Almonte on 04-11-2024 Mean platelet volume determination 9.3 fl 6.2-12.[address] [facility] Neutrophil percentageOrdered By: Xavi Almonte on 04-11-2024 Neutrophil percentage 83.2 % High 47-70 [facility] No Panel InformationOrdered By: Xavi Mejiao on 04-11-2024 17 U/L 15-[address] [facility] Nucleated red blood cell per centageOrdered By: Xavi Almonte on 04-11-2024 Nucleated red blood cell percentage 0 % 0-[address] [facility] Platelet countOrdered By: Manpreet Almonte on 04-11-2024 Platelet count 325 K/mm3 150-[address] [facility] Potassium measurementOrdered By: Xavi Almonte on 04-11-2024 Potassium measurement 2.9 mmol/L Low 3.5-5.1 [facility] RBC Auto (Bld) [#/Vol]Ordere d By: Xavi Almonte on 04-11-2024 Automated blood erythrocyte count 3.91 M/mm3 Low 4.6-6.[address] [facility] Serum anion gap measurementO rdered By: Xavi Almonte on 04-11-2024 Serum anion gap measurement 8 5-[address] [facility] Serum globulin measurementOr dered By: Xavi Almonte on 04-11-2024 Serum globulin measurement 2.8 g/dL 2.2-4.[address] [facility] Sodium levelOrdered By: Xavi Almonte on 04-11-2024 Sodium level 141 mmol/L 136-[address] [facility] Total proteinOrdered By: Xavi Almonte on 04-11-2024 Total protein 6.1 g/dL Low 6.4-8.[address] [facility] Troponin IOrdered By: Xavi reddy on 04-11-2024 Troponin I 11 pg/mL 3.0-78.[address] [facility] Urea nitrogen [Mass/Vol]Orde red By: Xavi Almonte on 04-11-2024 Serum or plasma urea nitrogen measurement (mass/volume) 34 mg/dL High 7-[address] [facility] White blood cell (WBC) count Ordered By: Xavi Almonte on 04-11-2024 White blood cell (WBC) count 10.6 K/mm3 4.4-11.[address] [facility] Absolute neutrophil countOrd ered By: Nanette Macdonald on 03-23-2024 Absolute neutrophil count 6.7 X10^3/uL 2.0-7.[address] [facility] Basophil percentageOrdered B y: Nanette Macdonald on 03-23-2024 Basophil percentage 0.8 % 0-1 [facility] CBC W/Diff, Automatedon 03-04 Absolute Lymph 1.28 X10 3/uL Normal 0.83-4.[address] [facility] Comment on above: Performed By: #### L 100.0100 ####[facility] [address] [facility] [place], [address] Absolute Neut 6.7 X10 3/uL Normal 2.0-7.[address] [facility] Comment on above: Performed By: #### L 100.0100 ####[facility] [address] [place], [address] Basophils/100 WBC (Bld) 0.8 % Normal 0-1 [facility] Comment on above: Performed By: #### L 100.0100 ####[facility] [address] [place], [address] Eosinophils/100 WBC (Bld) 1.3 % Normal 0-[address] [facility] Comment on above: Performed By: #### L 100.0100 ####[facility] [address] [place], [address] Erythrocyte distribution width (RBC) [Ratio] 14.6 % Normal 11.6-14.[address] [facility] Comment on above: Performed By: #### L 100.0100 ####[facility] [address] [place], [address] Hematocrit (Bld) [Volume fraction] 41.0 % Normal 40-[address] [facility] Comment on above: Performed By: #### L 100.0100 ####[facility] [address] [place], [address] Hemoglobin (Bld) [Mass/Vol] 13.8 g/dL Normal 13.0-16.[address] [facility] Comment on above: Performed By: #### L 100.0100 ####[facility] [address] [place], [address] IG% 0.300 Normal 0.0-0.[address] [facility] Comment on above: Result Comment: IG% - Immature Granulocytes (promyelocytes, myelocytes andmetamyelocytes) > 1% indicates that a LEFT SHIFT is Present. Performed By: #### L 100.0100 ####[facility] [address] [place], [address] Lymphocytes/100 WBC (Bld) 14.3 % Low 19-[address] [facility] Comment on above: Performed By: #### L 100.0100 ####[facility] [address] [place], [address] MCH (RBC) [Entitic mass] 33.3 pg High 27.0-32.[address] [facility] Comment on above: Performed By: #### L 100.0100 ####[facility] [address] [place], [address] MCHC (RBC) [Mass/Vol] 33.7 g/dL Normal 32-36 [facility] Comment on above: Performed By: #### L 100.0100 ####[facility] [address] [place], [address] MCV (RBC) [Entitic vol] 99.0 fL High 80-94 [facility] Comment on above: Performed By: #### L 100.0100 ####[facility] [address] [place], [address] Monocytes/100 WBC (Bld) 8.4 % Normal 0-10 [facility] Comment on above: Performed By: #### L 100.0100 ####[facility] [address] [place], [address] Neutrophils/100 WBC (Bld) 74.9 % High 47-[address] [facility] Comment on above: Performed By: #### L 100.0100 ####[facility] [address] [place], [address] Nucleated RBC (Bld) [#/Vol] 0 10*3/uL Normal 0-[address] [facility] Comment on above: Performed By: #### L 100.0100 ####[facility] [address] [place], [address] Platelet mean volume (Bld) [Entitic vol] 10.0 fL Normal 6.2-12.[address] [facility] Comment on above: Performed By: #### L 100.0100 ####[facility] [address] [place], [address] Platelets (Bld) [#/Vol] 401 10*3/uL Normal 150-[address] [facility] Comment on above: Performed By: #### L 100.0100 ####[facility] [address] [place], [address] RBC (Bld) [#/Vol] 4.14 10*6/uL Low 4.6-6.2 [facility] Comment on above: Performed By: #### L 100.0100 ####[facility] [address] [place], [address] RDW SD 53.2 fl High 35.1-43.[address] [facility] Comment on above: Performed By: #### L 100.0100 ####[facility] [address] [place], [address] WBC (Bld) [#/Vol] 8.9 10*3/uL Normal 4.4-11.0 [facility] Comment on above: Performed By: #### L 100.0100 ####[facility] [address] [place], [place], [address] Eosinophil percentageOrdered By: Nanette Macdonald on 03-23-2024 Eosinophil percentage 1.3 % 0-5 [facility] Erythrocyte distribution wid th (RBC) [Entitic vol]Ordered By: Nanette Macdonald on 03-23-2024 Erythrocyte distribution width standard deviation 53.2 fl High 35.1-43.[address] [facility] Erythrocyte distribution wid th (RBC) [Ratio]Ordered By: Nanette Macdonald on 03-23-2024 Erythrocyte distribution width ratio 14.6 % 11.6-14.[address] [facility] Hematocrit Auto (Bld) [Volum e fraction]Ordered By: Nanette Macdonald on 03-23-2024 Automated blood hematocrit (percentage) 41.0 % 40-[address] [facility] Hemoglobin measurementOrdere d By: Nanette Macdonald on 03-23-2024 Hemoglobin measurement 13.8 g/dL 13.0-16.5 [facility] Immature granulocytes/100 WB C Auto (Bld)Ordered By: Nanette Macdonald on 03-23-2024 Automated immature granulocyte percentage 0.300 % 0.0-0.[address] [facility] Lymphocytes Auto (Unsp spec) [#/Vol]Ordered By: Nanette Macdonald on 03-23-2024 Absolute lymphocyte count 1.28 X10^3/uL 0.83-4.[address] [facility] Lymphocytes/100 WBC Auto (Un sp spec)Ordered By: Nanette Macdonald on 03-23-2024 Automated lymphocyte count as percentage of total leukocytes 14.3 % Low 19-[address] [facility] MCV (RBC) [Entitic vol]Order ed By: Nanette Macdonald on 03-23-2024 MCV (mean corpuscular volume) determination 99.0 fL High 80-[address] [facility] Mean corpuscular hemoglobin (MCH) determinationOrdered By: Nanette Macdonald on 03-23-2024 Mean corpuscular hemoglobin (MCH) determination 33.3 pg High 27.0-32.[address] [facility] Mean corpuscular hemoglobin concentration (MCHC) determinationOrdered By: Nanette Macdonald on 03-23-2024 Mean corpuscular hemoglobin concentration (MCHC) determination 33.7 g/dL 32-[address] [facility] Mean platelet volume determi nationOrdered By: Nanette Macdonald on 03-23-2024 Mean platelet volume determination 10.0 fl 6.2-12.[address] [facility] Monocyte percentageOrdered B y: Nanette Macdonald on 03-23-2024 Monocyte percentage 8.4 % 0-10 [facility] Neutrophil percentageOrdered By: Nanette Macdonald on 03-23-2024 Neutrophil percentage 74.9 % High 47-70 [facility] Nucleated red blood cell per centageOrdered By: Nanette Macdonald on 03-23-2024 Nucleated red blood cell percentage 0 % 0-[address] [facility] Platelet countOrdered By: Serjio Macdonald on 03-23-2024 Platelet count 401 K/mm3 150-[address] [facility] RBC Auto (Bld) [#/Vol]Ordere d By: Nanette Macdonald on 03-23-2024 Automated blood erythrocyte count 4.14 M/mm3 Low 4.6-6.[address] [facility] White blood cell (WBC) count Ordered By: Nanette Macdonald on 03-23-2024 White blood cell (WBC) count 8.9 K/mm3 4.4-11.[address] [facility] Gastroenterology Visit Repor ton 03-21-2024 Gastroenterology Visit Report Normal [facility] PSA,Total- Diagnosticon 10-2 PSA, DIAGNOSTIC < 0.01 Normal 0.0-4.[address] [facility] Comment on above: Result Comment: This test was performed using the TPSA assay method for theDimension chemistry system. Values obtained with differentassay methods cannot be used interchangably.When changing PSA assays in the course of monitoring apatient, additional sequential testing should be carriedout to confirm baseline values. Performed By: #### L 501.9940 ####[facility] [address] [place], [address] Pulmonary Visit Reporton Pulmonary Visit Report Normal [facility] PSA,Total- Diagnosticon 10-31 PSA, DIAGNOSTIC < 0.01 Normal 0.0-4.[address] [facility] Comment on above: Result Comment: This test was performed using the TPSA assay method for theDimension chemistry system. Values obtained with differentassay methods cannot be used interchangably.When changing PSA assays in the course of monitoring apatient, additional sequential testing should be carriedout to confirm baseline values. Performed By: #### L 501.9940 ####[facility] [address] [place], [address] Basic Metabolic Profile (BMP )on 10-28-2023 BUN/CRE 16.9 RATIO Normal 10-[address] [facility] Comment on above: Performed By: #### L 500.2500 ####[facility] [address] [place], [address] CA,Total 9.3 mg/dL Normal 8.5-10.[address] [facility] Comment on above: Performed By: #### L 500.2500 ####[facility] [address] [place], [address] Chloride [Moles/Vol] 103 mmol/L Normal 98-107 [facility] Comment on above: Performed By: #### L 500.2500 ####[facility] [address] [place], [address] CO2 [Moles/Vol] 27.0 mmol/L Normal 21.0-32.[address] [facility] Comment on above: Performed By: #### L 500.2500 ####[facility] [address] [place], [address] Creatinine [Mass/Vol] 1.78 mg/dL High 0.70-1.30 [facility] Comment on above: Result Comment: The validity of the calculated GFR GFRAA in patients over70 years has not been determined. Clinical correlation isessential. Performed By: #### L 500.2500 ####[facility] [address] [place], [address] EST GFR - AA 48 mL/min Low >[address] [facility] Comment on above: Result Comment: Afri can Bahraini GFR Calc Performed By: #### L 500.2500 ####[facility] [address] [place], [address] GAP 9 Normal 5-[address] [facility] Comment on above: Performed By: #### L 500.2500 ####[facility] [address] [place], [address] GFR/1.73 sq M.predicted among non-blacks MDRD (S/P/Bld) [Vol rate/Area] 39 mL/min/{1.73_m2} Low >[address] [facility] Comment on above: Result Comment: Non- GFR Calc Performed By: #### L 500.2500 ####[facility] [address] [place], [address] Glucose [Mass/Vol] 103 mg/dL Normal 74-106 [facility] Comment on above: Result Comment: Fast ing Glucose result from 100 to 125 mg/dLsuggests IMPAIRED HOMEOSTASIS per A.D.A. criteria. Performed By: #### L 500.2500 ####[facility] [address] [place], [address] Potassium [Moles/Vol] 3.2 mmol/L Low 3.5-5.1 [facility] Comment on above: Performed By: #### L 500.2500 ####[facility] [address] [place], [address] Sodium [Moles/Vol] 139 mmol/L Normal 136-145 [facility] Comment on above: Performed By: #### L 500.2500 ####[facility] [address] [place], [address] Urea nitrogen [Mass/Vol] 30 mg/dL High 7-[address] [facility] Comment on above: Performed By: #### L 500.2500 ####[facility] [address] [place], [address] Office Visit Reporton 10-27- 2023 Office Visit Report Normal [facility] CBC W/Diff, Automatedon 10-01 Absolute Lymph 1.00 X10 3/uL Normal 0.83-4.[address] [facility] Comment on above: Performed By: #### L 500.4050, L500.4100, L100.0100 ####[facility] [address] [place], [address] Absolute Neut 5.9 X10 3/uL Normal 2.0-7.[address] [facility] Comment on above: Performed By: #### L 500.4050, L500.4100, L100.0100 ####[facility] [address] [place], [address] Basophils/100 WBC (Bld) 0.9 % Normal 0-1 [facility] Comment on above: Performed By: #### L 500.4050, L500.4100, L100.0100 ####[facility] [address] [place], [address] Eosinophils/100 WBC (Bld) 6.1 % High 0-[address] [facility] Comment on above: Performed By: #### L 500.4050, L500.4100, L100.0100 ####[facility] [address] [place], [address] Erythrocyte distribution width (RBC) [Ratio] 12.7 % Normal 11.6-14.[address] [facility] Comment on above: Performed By: #### L 500.4050, L500.4100, L100.0100 ####[facility] [address] [place], [address] Hematocrit (Bld) [Volume fraction] 41.6 % Normal 40-[address] [facility] Comment on above: Performed By: #### L 500.4050, L500.4100, L100.0100 ####[facility] [address] [place], [address] Hemoglobin (Bld) [Mass/Vol] 13.8 g/dL Normal 13.0-16.[address] [facility] Comment on above: Performed By: #### L 500.4050, L500.4100, L100.0100 ####[facility] [address] [place], [address] IG% 0.100 Normal 0.0-0.[address] [facility] Comment on above: Result Comment: IG% - Immature Granulocytes (promyelocytes, myelocytes andmetamyelocytes) > 1% indicates that a LEFT SHIFT is Present. Performed By: #### L 500.4050, L500.4100, L100.0100 ####[facility] [address] [place], [address] Lymphocytes/100 WBC (Bld) 12.5 % Low 19-[address] [facility] Comment on above: Performed By: #### L 500.4050, L500.4100, L100.0100 ####[facility] [address] [place], [address] MCH (RBC) [Entitic mass] 31.8 pg Normal 27.0-32.[address] [facility] Comment on above: Performed By: #### L 500.4050, L500.4100, L100.0100 ####[facility] [address] [place], [address] MCHC (RBC) [Mass/Vol] 33.2 g/dL Normal 32-36 [facility] Comment on above: Performed By: #### L 500.4050, L500.4100, L100.0100 ####[facility] [address] [place], [address] MCV (RBC) [Entitic vol] 95.9 fL High 80-94 [facility] Comment on above: Performed By: #### L 500.4050, L500.4100, L100.0100 ####[facility] [address] [place], [address] Monocytes/100 WBC (Bld) 7.0 % Normal 0-10 [facility] Comment on above: Performed By: #### L 500.4050, L500.4100, L100.0100 ####[facility] [address] [place], [address] Neutrophils/100 WBC (Bld) 73.4 % High 47-[address] [facility] Comment on above: Performed By: #### L 500.4050, L500.4100, L100.0100 ####[facility] [address] [place], [address] Nucleated RBC (Bld) [#/Vol] 0 10*3/uL Normal 0-[address] [facility] Comment on above: Performed By: #### L 500.4050, L500.4100, L100.0100 ####[facility] [address] [place], [address] Platelet mean volume (Bld) [Entitic vol] 10.8 fL Normal 6.2-12.[address] [facility] Comment on above: Performed By: #### L 500.4050, L500.4100, L100.0100 ####[facility] [address] [place], [address] Platelets (Bld) [#/Vol] 347 10*3/uL Normal 150-[address] [facility] Comment on above: Performed By: #### L 500.4050, L500.4100, L100.0100 ####[facility] [address] [place], [address] RBC (Bld) [#/Vol] 4.34 10*6/uL Low 4.6-6.2 [facility] Comment on above: Performed By: #### L 500.4050, L500.4100, L100.0100 ####[facility] [address] [place], [address] RDW SD 45.1 fl High 35.1-43.[address] [facility] Comment on above: Performed By: #### L 500.4050, L500.4100, L100.0100 ####[facility] [address] [place], [address] WBC (Bld) [#/Vol] 8.0 10*3/uL Normal 4.4-11.0 [facility] Comment on above: Performed By: #### L 500.4050, L500.4100, L100.0100 ####[facility] [address] [place], [address] Comprehensive Metabolic Prof nhon 10-20-2023 Albumin [Mass/Vol] 4.0 g/dL Normal 3.2-5.0 [facility] Comment on above: Performed By: #### L 500.4050, L500.4100, L100.0100 ####[facility] [address] [place], [address] Albumin/Globulin [Mass ratio] 1.4 {ratio} Normal 0.9-2.[address] [facility] Comment on above: Performed By: #### L 500.4050, L500.4100, L100.0100 ####[facility] [address] [place], [address] ALK P 94 U/L Normal 45-[address] [facility] Comment on above: Performed By: #### L 500.4050, L500.4100, L100.0100 ####[facility] [address] [place], [address] ALT [Catalytic activity/Vol] 15 U/L Low 16-[address] [facility] Comment on above: Performed By: #### L 500.4050, L500.4100, L100.0100 ####[facility] [address] [place], [address] AST [Catalytic activity/Vol] 19 U/L Normal 15-[address] [facility] Comment on above: Performed By: #### L 500.4050, L500.4100, L100.0100 ####[facility] [address] [place], [address] Bilirubin [Mass/Vol] 0.80 mg/dL Normal 0.20-1.00 [facility] Comment on above: Result Comment: For patients on eltrombopag therapy, use of Dimension [place] TBIL is not recommended. Performed By: #### L 500.4050, L500.4100, L100.0100 ####[facility] [address] [place], [address] BUN/CRE 15.5 RATIO Normal 10-[address] [facility] Comment on above: Performed By: #### L 500.4050, L500.4100, L100.0100 ####[facility] [address] [place], [address] CA,Total 10.0 mg/dL Normal 8.5-10.[address] [facility] Comment on above: Performed By: #### L 500.4050, L500.4100, L100.0100 ####[facility] [address] [place], [address] Chloride [Moles/Vol] 102 mmol/L Normal 98-107 [facility] Comment on above: Performed By: #### L 500.4050, L500.4100, L100.0100 ####[facility] [address] [place], [address] CO2 [Moles/Vol] 28.0 mmol/L Normal 21.0-32.[address] [facility] Comment on above: Performed By: #### L 500.4050, L500.4100, L100.0100 ####[facility] [address] [place], [address] Creatinine [Mass/Vol] 1.48 mg/dL High 0.70-1.30 [facility] Comment on above: Result Comment: The validity of the calculated GFR GFRAA in patients over70 years has not been determined. Clinical correlation isessential. Performed By: #### L 500.4050, L500.4100, L100.0100 ####[facility] [address] [place], [address] EST GFR - AA 59 mL/min Low >[address] [facility] Comment on above: Result Comment: Afri can Bahraini GFR Calc Performed By: #### L 500.4050, L500.4100, L100.0100 ####[facility] [address] [place], [address] GAP 8 Normal 5-[address] [facility] Comment on above: Performed By: #### L 500.4050, L500.4100, L100.0100 ####[facility] [address] [place], [address] GFR/1.73 sq M.predicted among non-blacks MDRD (S/P/Bld) [Vol rate/Area] 49 mL/min/{1.73_m2} Low >[address] [facility] Comment on above: Result Comment: Non- GFR Calc Performed By: #### L 500.4050, L500.4100, L100.0100 ####[facility] [address] [place], [address] Globulin (S) [Mass/Vol] 2.9 g/dL Normal 2.2-4.2 [facility] Comment on above: Performed By: #### L 500.4050, L500.4100, L100.0100 ####[facility] [address] [place], [address] Glucose [Mass/Vol] 95 mg/dL Normal 74-106 [facility] Comment on above: Performed By: #### L 500.4050, L500.4100, L100.0100 ####[facility] [address] [place], [address] Potassium [Moles/Vol] 3.2 mmol/L Low 3.5-5.1 [facility] Comment on above: Performed By: #### L 500.4050, L500.4100, L100.0100 ####[facility] [address] [place], [address] Sodium [Moles/Vol] 138 mmol/L Normal 136-145 [facility] Comment on above: Performed By: #### L 500.4050, L500.4100, L100.0100 ####[facility] [address] [place], [address] T PROT 6.9 g/dL Normal 6.4-8.[address] [facility] Comment on above: Performed By: #### L 500.4050, L500.4100, L100.0100 ####[facility] [address] [place], [address] Urea nitrogen [Mass/Vol] 23 mg/dL High 7-[address] [facility] Comment on above: Performed By: #### L 500.4050, L500.4100, L100.0100 ####[facility] [address] [place], [address] Internal Medicine Office Vis iton 10-20-2023 Internal Medicine Office Visit Normal [facility] Lipid Profileon 10-20-2023 Cholesterol [Mass/Vol] 194 mg/dL Normal 200 [facility] Comment on above: Result Comment: <200 mg/dL Desirable 200-240 mg/dL Borderline >240 mg/dL High Risk Performed By: #### L 500.4050, L500.4100, L100.0100 ####[facility] [address] [place], [address] Cholesterol in HDL [Mass/Vol] 80 mg/dL Normal [facility] Comment on above: Result Comment: The drugs N-Acetylcysteine and Metamizole may falselydepress this assay. Reference Range HDL <40 mg/dL Low HDL Cholesterol HDL >or= 60 mg/dL High HDL Cholesterol Performed By: #### L 500.4050, L500.4100, L100.0100 ####[facility] [address] [place], [address] Cholesterol in LDL [Mass/Vol] 91 mg/dL Normal 0-[address] [facility] Comment on above: Performed By: #### L 500.4050, L500.4100, L100.0100 ####[facility] [address] [place], [address] Cholesterol in VLDL [Mass/Vol] 23 mg/dL Normal 5-[address] [facility] Comment on above: Performed By: #### L 500.4050, L500.4100, L100.0100 ####[facility] [address] [place], [address] Triglyceride [Mass/Vol] 116 mg/dL Normal [facility] Comment on above: Result Comment: The drugs N-Acetylcysteine and Metamizole may falselydepress this assay.Serum Triglycerides Reference Interval Normal <150 mg/dL Borderline high 150 - 199 mg/dL High 200 - 499 mg/dL Very High > or = 500 mg/dL Performed By: #### L 500.4050, L500.4100, L100.0100 ####[facility] [address] [place], [address] Basophil percentageOrdered B y: Aren Alvaresano on 08-10-2023 Basophil percentage < 0.01 ng/mL 0.0-4.0 [facility] Comment on above: This test was perfor med using the TPSA assay method for theT-System chemistry system. Values obtained with differentassay methods cannot be used interchangably.When changing PSA assays in the course of monitoring apatient, additional sequential testing should be carriedout to confirm baseline values. Basophil percentageOrdered B y: Amy Morris on 04-21-2023 Chloride [Moles/Vol] 103 mmol/L 98-107 [facility] Glucose [Mass/Vol] 133 mg/dL 74-106 [facility] Comment on above: Fasting Glucose resu lt greater than or equal to 126 mg/dL suggests DIABETES MELLITUS per A.D.A. criteria. Potassium [Moles/Vol] 3.5 mmol/L 3.5-5.1 [facility] Sodium [Moles/Vol] 139 mmol/L 136-145 [facility] Laboratory - Chemistry and C hemistry - challengeOrdered By: Amy Morris on 04-21-2023 CO2 [Moles/Vol] 31.0 mmol/L 21.0-32.[address] [facility] Urea nitrogen/Creatinine [Mass ratio] 9.2 mg/mg 02-[address] [facility] No Panel InformationOrdered By: Amy Morris on 04-21-2023 Estimated GFR (MDRD) Amer 49 mL/min >[address] [facility] Comment on above: GFR Calc Estimated GFR (MDRD) Non-Af Amer 41 mL/min >[address] [facility] Comment on above: Non- GFR Calc Serum or plasma calcium jenna urement (mass/volume)Ordered By: Amy Morris on 04-21-2023 Calcium [Mass/Vol] 10.0 mg/dL 8.5-10.1 [facility] Serum or plasma creatinine m easurement (mass/volume)Ordered By: Amy Morris on 04-21-2023 Creatinine [Mass/Vol] 1.73 mg/dL 0.70-1.30 [facility] Comment on above: The validity of the calculated GFR & GFRAA in patients over 70 years has not been determined. Clinical correlation is essential. Serum or plasma urea nitroge n measurement (mass/volume)Ordered By: Amy Morris on 04-21-2023 Urea nitrogen [Mass/Vol] 16 mg/dL 7-[address] [facility] Thin prep Papanicolaou smear with manual screeningOrdered By: Amy Morris on 04-21-2023 Thin prep Papanicolaou smear with manual screening 5 5-[address] [facility] Basophil percentageOrdered B y: Amy Morris on 2023 Chloride [Moles/Vol] 108 mmol/L 98-107 [facility] Glucose [Mass/Vol] 116 mg/dL 74-106 [facility] Comment on above: Fasting Glucose resu lt from 100 to 125 mg/dL suggests IMPAIRED HOMEOSTASIS per A.D.A. criteria. Potassium [Moles/Vol] 3.7 mmol/L 3.5-5.1 [facility] Sodium [Moles/Vol] 143 mmol/L 136-145 [facility] WBC (Bld) [#/Vol] 7.0 10*3/uL 4.4-11.0 [facility] Blood erythrocytes count (nu mber/volume)Ordered By: Amy Morris on 2023 RBC (Bld) [#/Vol] 4.56 10*6/uL 4.6-6.2 [facility] Blood hemoglobin measurement (mass/volume)Ordered By: Amy Morris on 2023 Hemoglobin (Bld) [Mass/Vol] 13.6 g/dL 13.0-16.[address] [facility] Blood platelet mean volumeOr dered By: Amy Morris on 2023 Platelet mean volume (Bld) [Entitic vol] 10.7 fL 6.2-12.[address] [facility] Determination of erythrocyte mean corpuscular volume (MCV)Ordered By: Amy Morris on 2023 MCV (RBC) [Entitic vol] 92.8 fL 80-94 [facility] Hematocrit Auto (Bld) [Volum e fraction]Ordered By: Amy Morris on 2023 Hematocrit (Bld) [Volume fraction] 42.3 % 40-[address] [facility] Laboratory - Chemistry and C hemistry - challengeOrdered By: Amy Morris on 2023 CO2 [Moles/Vol] 28.0 mmol/L 21.0-32.[address] [facility] Natriuretic peptide B (Bld) [Mass/Vol] 133.4 pg/mL 0-[address] [facility] Urea nitrogen/Creatinine [Mass ratio] 12.1 mg/mg 10-[address] [facility] Laboratory - Hematology and Cell countsOrdered By: Amy Morris on 2023 Erythrocyte distribution width (RBC) [Entitic vol] 46.3 fL 35.1-43.[address] [facility] Erythrocyte distribution width (RBC) [Ratio] 13.6 % 11.6-14.[address] [facility] MCH (RBC) [Entitic mass] 29.8 pg 27.0-32.[address] [facility] MCHC Auto (RBC) [Mass/Vol]Or dered By: Amy Morris on 2023 MCHC (RBC) [Mass/Vol] 32.2 g/dL 32-36 [facility] No Panel InformationOrdered By: Amy Morris on 2023 Estimated GFR (MDRD) Amer 59 mL/min >[address] [facility] Comment on above: GFR Calc Estimated GFR (MDRD) Non-Af Amer 48 mL/min >[address] [facility] Comment on above: Non- GFR Calc Platelets bldOrdered By: Mike Morris on 2023 Platelets (Bld) [#/Vol] 291 10*3/uL 150-[address] [facility] Serum or plasma calcium jenna urement (mass/volume)Ordered By: Amy Morris on 2023 Calcium [Mass/Vol] 9.6 mg/dL 8.5-10.1 [facility] Serum or plasma creatinine m easurement (mass/volume)Ordered By: Amy Morris on 2023 Creatinine [Mass/Vol] 1.49 mg/dL 0.70-1.30 [facility] Comment on above: The validity of the calculated GFR & GFRAA in patients over 70 years has not been determined. Clinical correlation is essential. Serum or plasma urea nitroge n measurement (mass/volume)Ordered By: Amy Morris on 2023 Urea nitrogen [Mass/Vol] 18 mg/dL -[address] [facility] Thin prep Papanicolaou smear with manual screeningOrdered By: Amy Morris on 2023 Thin prep Papanicolaou smear with manual screening 7 -[address] [facility] Basophil percentageOrdered B y: Marshall Briscoe on 02-11-2023 Creatinine [Mass/Vol] 1.6 mg/dL 0.70-1.30 [facility] Laboratory - Chemistry and C hemistry - challengeOrdered By: Marshall Briscoe on 02-11-2023 GFR/1.73 sq M.predicted among non-blacks MDRD (S/P/Bld) [Vol rate/Area] 44.0000 mL/min/{1.73_m2} >[address] [facility] Basophil percentageOrdered B y: Christiano Steinberg on 12-14-2022 Chloride [Moles/Vol] 105 mmol/L 98-107 [facility] Glucose [Mass/Vol] 115 mg/dL 74-106 [facility] Comment on above: Fasting Glucose resu lt from 100 to 125 mg/dL suggests IMPAIRED HOMEOSTASIS per A.D.A. criteria. Potassium [Moles/Vol] 3.6 mmol/L 3.5-5.1 [facility] Sodium [Moles/Vol] 140 mmol/L 136-145 [facility] Laboratory - Chemistry and C hemistry - challengeOrdered By: Christiano Steinberg on 12-14-2022 CO2 [Moles/Vol] 28.0 mmol/L 21.0-32.[address] [facility] Urea nitrogen/Creatinine [Mass ratio] 10.7 mg/mg 10-[address] [facility] No Panel InformationOrdered By: Christiano Steinberg on 12-14-2022 Estimated GFR (MDRD) Amer 35 mL/min >[address] [facility] Comment on above: GFR Calc Estimated GFR (MDRD) Non-Af Amer 29 mL/min >[address] [facility] Comment on above: Non- GFR Calc Serum or plasma calcium jenna urement (mass/volume)Ordered By: Christiano Maryan on 12-14-2022 Calcium [Mass/Vol] 10.3 mg/dL 8.5-10.1 [facility] Serum or plasma creatinine m easurement (mass/volume)Ordered By: Christiano Maryan on 12-14-2022 Creatinine [Mass/Vol] 2.34 mg/dL 0.70-1.30 [facility] Comment on above: The validity of the calculated GFR & GFRAA in patients over 70 years has not been determined. Clinical correlation is essential. Serum or plasma urea nitroge n measurement (mass/volume)Ordered By: Christiano [facility] on 12-14-2022 Urea nitrogen [Mass/Vol] 25 mg/dL 7-[address] [facility] Thin prep Papanicolaou smear with manual screeningOrdered By: Christiano Maryan on 12-14-2022 Thin prep Papanicolaou smear with manual screening 7 5-[address] [facility] Absolute lymphocyte countOrd ered By: Joseph Manzano on 11-30-2022 Lymphocytes Auto (Unsp spec) [#/Vol] 1.39 10*3/uL 0.83-4.[address] [facility] Basophil percentageOrdered B y: Joseph Manzano on 11-30-2022 Basophils/100 WBC (Bld) 0.8 % 0-1 [facility] Chloride [Moles/Vol] 108 mmol/L 98-107 [facility] Eosinophils/100 WBC (Bld) 8.0 % 0-[address] [facility] Glucose [Mass/Vol] 100 mg/dL 74-106 [facility] Comment on above: Fasting Glucose resu lt from 100 to 125 mg/dL suggests IMPAIRED HOMEOSTASIS per A.D.A. criteria. Neutrophils (Bld) [#/Vol] 5.8 10*3/uL 2.0-7.[address] [facility] Neutrophils/100 WBC (Bld) 68.1 % 47-[address] [facility] Potassium [Moles/Vol] 3.3 mmol/L 3.5-5.1 [facility] Sodium [Moles/Vol] 141 mmol/L 136-145 [facility] WBC (Bld) [#/Vol] 8.5 10*3/uL 4.4-11.0 [facility] Blood erythrocytes count (nu mber/volume)Ordered By: Joseph Manzano on 11-30-2022 RBC (Bld) [#/Vol] 4.71 10*6/uL 4.6-6.2 [facility] Blood hemoglobin measurement (mass/volume)Ordered By: Joseph Manzano on 11-30-2022 Hemoglobin (Bld) [Mass/Vol] 13.9 g/dL 13.0-16.[address] [facility] Blood lymphocytes/100 leukoc ytesOrdered By: Joseph Manzano on 11-30-2022 Lymphocytes/100 WBC (Bld) 16.3 % 19-[address] [facility] Blood monocytes/100 leukocyt esOrdered By: Joseph Manzano on 11-30-2022 Monocytes/100 WBC (Bld) 6.4 % 0-10 [facility] Blood platelet mean volumeOr dered By: Joseph Manzano on 11-30-2022 Platelet mean volume (Bld) [Entitic vol] 11.1 fL 6.2-12.[address] [facility] Determination of erythrocyte mean corpuscular volume (MCV)Ordered By: Joseph Manzano on 11-30-2022 MCV (RBC) [Entitic vol] 90.0 fL 80-94 [facility] Hematocrit Auto (Bld) [Volum e fraction]Ordered By: Joseph Manzano on 11-30-2022 Hematocrit (Bld) [Volume fraction] 42.4 % 40-[address] [facility] Laboratory - Chemistry and C hemistry - challengeOrdered By: Joseph Manzano on 11-30-2022 CO2 [Moles/Vol] 25.0 mmol/L 21.0-32.[address] [facility] Natriuretic peptide B (Bld) [Mass/Vol] 177.8 pg/mL 0-[address] [facility] Urea nitrogen/Creatinine [Mass ratio] 11.4 mg/mg 10-[address] [facility] Laboratory - Hematology and Cell countsOrdered By: Joseph Manzano on 11-30-2022 Erythrocyte distribution width (RBC) [Entitic vol] 49.1 fL 35.1-43.[address] [facility] Erythrocyte distribution width (RBC) [Ratio] 14.9 % 11.6-14.[address] [facility] Immature granulocytes/100 WBC (Bld) 0.400 % 0.0-0.[address] [facility] Comment on above: IG% - Immature Granu locytes (promyelocytes, myelocytes and metamyelocytes) > 1% indicates that a LEFT SHIFT is Present. MCH (RBC) [Entitic mass] 29.5 pg 27.0-32.[address] [facility] Nucleated RBC/100 WBC (Bld) [Ratio] 0 % 0-[address] [facility] MCHC Auto (RBC) [Mass/Vol]Or dered By: Joseph Manzano on 11-30-2022 MCHC (RBC) [Mass/Vol] 32.8 g/dL 32-36 [facility] No Panel InformationOrdered By: Joseph Manzano on 11-30-2022 Troponin I High Sensitivity 17 pg/mL 3.0-78.[address] [facility] Comment on above: Please Note: New Nayeli t Units and Gender Specific Reference Ranges. For more information see Policy Stat Procedure [place] High Sensitivity Troponin (TNIH) and attachments. Estimated Creatinine Clearance Calc 34.08 ml/min [facility] Estimated GFR (MDRD) Amer 51 mL/min >[address] [facility] Comment on above: GFR Calc Estimated GFR (MDRD) Non-Af Amer 42 mL/min >[address] [facility] Comment on above: Non- GFR Calc Platelets bldOrdered By: Kvng Manzano on 11-30-2022 Platelets (Bld) [#/Vol] 423 10*3/uL 150-[address] [facility] Serum or plasma calcium jenna urement (mass/volume)Ordered By: Joseph Manzano on 11-30-2022 Calcium [Mass/Vol] 9.9 mg/dL 8.5-10.1 [facility] Serum or plasma creatinine m easurement (mass/volume)Ordered By: Joseph Manzano on 11-30-2022 Creatinine [Mass/Vol] 1.67 mg/dL 0.70-1.30 [facility] Comment on above: The validity of the calculated GFR & GFRAA in patients over 70 years has not been determined. Clinical correlation is essential. Serum or plasma urea nitroge n measurement (mass/volume)Ordered By: Joseph Manzano on 11-30-2022 Urea nitrogen [Mass/Vol] 19 mg/dL 7-[address] [facility] Thin prep Papanicolaou smear with manual screeningOrdered By: Joseph Manzano on 11-30-2022 Thin prep Papanicolaou smear with manual screening 8 5-[address] [facility] Basophil percentageOrdered B y: Christianojacey Steinberg on 11-27-2022 Potassium [Moles/Vol] 3.7 mmol/L 3.5-5.1 [facility] No Panel InformationOrdered By: Aren Montaño on 11-24-2022 Prostate Specific Antigen Total 0.05 ng/mL 0.0-4.[address] [facility] Comment on above: This test was perfor med using the TPSA assay method for theT-System chemistry system. Values obtained with differentassay methods cannot be used interchangably.When changing PSA assays in the course of monitoring apatient, additional sequential testing should be carriedout to confirm baseline values. Basophil percentageOrdered B y: Bethel Gallegos on 11-16-2022 Basophil percentage 110 mg/dL 74-106 [facility] Basophil percentage 140 mmol/L 136-145 [facility] Basophil percentage 3.4 mmol/L 3.5-5.1 [facility] Basophil percentage 112 mmol/L 98-107 [facility] Chloride [Moles/Vol] 112 mmol/L 98-107 [facility] Glucose [Mass/Vol] 110 mg/dL 74-106 [facility] Comment on above: Fasting Glucose resu lt from 100 to 125 mg/dL suggests IMPAIRED HOMEOSTASIS per A.D.A. criteria. Potassium [Moles/Vol] 3.4 mmol/L 3.5-5.1 [facility] Sodium [Moles/Vol] 140 mmol/L 136-145 [facility] Basophil percentageOrdered B y: Good Morse on 11-16-2022 Basophil percentage 3.1 mg/dL 2.5-4.9 [facility] Laboratory - Chemistry and C hemistry - challengeOrdered By: Bethel Gallegos on 11-16-2022 CO2 [Moles/Vol] 23.0 mmol/L 21.0-32.[address] [facility] Urea nitrogen/Creatinine [Mass ratio] 13.6 mg/mg 02-[address] [facility] Laboratory - CoagulationOrde red By: Bethel Gallegos on 11-16-2022 aPTT Coag (Bld) [Time] 35.8 s 24.1-36.2 [facility] No Panel InformationOrdered By: Bethel Gallegos on 11-16-2022 35.8 Seconds 24.1-36.[address] [facility] Estimated Creatinine Clearance Calc 38.37 ml/min [facility] Estimated GFR (MDRD) Amer 60 mL/min >[address] [facility] Comment on above: GFR Calc Estimated GFR (MDRD) Non-Af Amer 49 mL/min >[address] [facility] Comment on above: Non- GFR Calc 49 mL/min >[address] [facility] 60 mL/min >[address] [facility] 38.37 ml/min [facility] 13.6 RATIO 02-[address] [facility] 23.0 mmol/L 21.0-32.[address] [facility] Serum or plasma albumin jenna urement (mass/volume)Ordered By: Good Morse on 11-16-2022 Albumin [Mass/Vol] 3.2 g/dL 3.2-5.0 [facility] Serum or plasma calcium jenna urement (mass/volume)Ordered By: Bethel Gallegos on 11-16-2022 Calcium [Mass/Vol] 9.5 mg/dL 8.5-10.1 [facility] Serum or plasma creatinine m easurement (mass/volume)Ordered By: Bethel Gallegos on 11-16-2022 Creatinine [Mass/Vol] 1.47 mg/dL 0.70-1.30 [facility] Comment on above: The validity of the calculated GFR & GFRAA in patients over 70 years has not been determined. Clinical correlation is essential. Serum or plasma urea nitroge n measurement (mass/volume)Ordered By: Bethel Gallegos on 11-16-2022 Urea nitrogen [Mass/Vol] 20 mg/dL 11-[address] [facility] Thin prep Papanicolaou smear with manual screeningOrdered By: Bethel Gallegos on 11-16-2022 Thin prep Papanicolaou smear with manual screening 5 5-[address] [facility] Absolute lymphocyte countOrd ered By: Delma White on 11-15-2022 Lymphocytes Auto (Unsp spec) [#/Vol] 1.02 10*3/uL 0.83-4.[address] [facility] Basophil percentageOrdered B y: Good Heathichitr on 11-15-2022 Basophil percentage 0 SEEN /hpf 0-5 [facility] Basophil percentageOrdered B y: Delma White on 11-15-2022 Basophil percentage 6.2 g/dL 6.4-8.2 [facility] Basophil percentage 0.70 mg/dL 0.20-1.00 [facility] Basophil percentage 196 mg/dL <200 [facility] Basophil percentage 107 mg/dL <199 [facility] Basophils (Bld) [#/Vol] 7.4 10*3/uL 4.4-11.[address] [facility] Basophils (Bld) [#/Vol] 5.1 10*3/uL 2.0-7.[address] [facility] Basophils/100 WBC (Bld) 69.1 % 47-70 [facility] Basophils/100 WBC (Bld) 9.4 % 0-5 [facility] Basophils/100 WBC (Bld) 1.1 % 0-1 [facility] Bilirubin [Mass/Vol] 0.70 mg/dL 0.20-1.00 [facility] Comment on above: For patients on eltr ombopag therapy, use of Dimension [place] TBIL is not recommended. Cholesterol [Mass/Vol] 196 mg/dL <200 [facility] Comment on above: <200 mg/dL Desirable 200-240 mg/dL Borderline >240 mg/dL High Risk Eosinophils/100 WBC (Bld) 9.4 % 0-[address] [facility] Neutrophils (Bld) [#/Vol] 5.1 10*3/uL 2.0-7.[address] [facility] Neutrophils/100 WBC (Bld) 69.1 % 47-[address] [facility] Protein [Mass/Vol] 6.2 g/dL 6.4-8.2 [facility] Triglyceride [Mass/Vol] 107 mg/dL <199 [facility] Comment on above: The drugs N-Acetylcy steine and Metamizole may falsely depress this assay.Serum Triglycerides Reference Interval Normal <150 mg/dL Borderline high 150 - 199 mg/dL High 200 - 499 mg/dL Very High > or = 500 mg/dL WBC (Bld) [#/Vol] 7.4 10*3/uL 4.4-11.0 [facility] Bilirubin Test strip Ql (U)O rdered By: Good Morse on 11-15-2022 Bilirubin Ql (U) Negative Negative [facility] Blood erythrocytes count (nu mber/volume)Ordered By: Delma Gonsalves on 11-15-2022 RBC (Bld) [#/Vol] 4.51 10*6/uL 4.6-6.2 [facility] Blood hemoglobin measurement (mass/volume)Ordered By: Delma Gonsalves on 11-15-2022 Hemoglobin (Bld) [Mass/Vol] 13.1 g/dL 13.0-16.[address] [facility] Blood lymphocytes/100 leukoc ytesOrdered By: Delma Gonsalves on 11-15-2022 Lymphocytes/100 WBC (Bld) 13.7 % 19-[address] [facility] Blood monocytes/100 leukocyt esOrdered By: Delma Gonsalves on 11-15-2022 Monocytes/100 WBC (Bld) 6.3 % 0-10 [facility] Blood platelet mean volumeOr dered By: Delma Gonsalves on 11-15-2022 Platelet mean volume (Bld) [Entitic vol] 10.1 fL 6.2-12.[address] [facility] Determination of erythrocyte mean corpuscular volume (MCV)Ordered By: Delma Gonsalves on 11-15-2022 MCV (RBC) [Entitic vol] 89.6 fL 80-94 [facility] Hematocrit Auto (Bld) [Volum e fraction]Ordered By: Delma Gonsalves on 11-15-2022 Hematocrit (Bld) [Volume fraction] 40.4 % 40-[address] [facility] Ketones Test strip Ql (U)Ord ered By: Good Morse on 11-15-2022 Ketones Ql (U) Negative Negative [facility] Laboratory - Chemistry and C hemistry - challengeOrdered By: Delma Gonsalves on 11-15-2022 ALP [Catalytic activity/Vol] 74 U/L 45-[address] [facility] ALT [Catalytic activity/Vol] 17 U/L [facility] Globulin (S) [Mass/Vol] 3.0 g/dL 2.2-4.2 [facility] Laboratory - Hematology and Cell countsOrdered By: Delma Major on 11-15-2022 Erythrocyte distribution width (RBC) [Entitic vol] 50.4 fL 35.1-43.[address] [facility] Erythrocyte distribution width (RBC) [Ratio] 15.3 % 11.6-14.[address] [facility] Immature granulocytes/100 WBC (Bld) 0.400 % 0.0-0.[address] [facility] Comment on above: IG% - Immature Granu locytes (promyelocytes, myelocytes and metamyelocytes) > 1% indicates that a LEFT SHIFT is Present. MCH (RBC) [Entitic mass] 29.0 pg 27.0-32.[address] [facility] Nucleated RBC/100 WBC (Bld) [Ratio] 0 % 0-[address] [facility] MCHC Auto (RBC) [Mass/Vol]Or dered By: Delma Gonsalves on 11-15-2022 MCHC (RBC) [Mass/Vol] 32.4 g/dL 32-36 [facility] Mucus LM Ql (Urine sed)Order ed By: Good Morse on 11-15-2022 Mucus Ql (Urine sed) 0 SEEN /hpf [facility] Nitrite Test strip Ql (U)Ord ered By: Good Morse on 11-15-2022 Nitrite Ql (U) Negative Negative [facility] No Panel InformationOrdered By: Delma Gonsalves on 11-15-2022 29.0 pg 27.0-32.[address] [facility] 15.3 % 11.6-14.[address] [facility] 50.4 fl 35.1-43.[address] [facility] 0.400 % 0.0-0.[address] [facility] 0 % 0-[address] [facility] 3.0 g/dL 2.2-4.[address] [facility] 74 U/L 45-[address] [facility] 17 U/L - [facility] Platelets bldOrdered By: Aut umn White on 11-15-2022 Platelets (Bld) [#/Vol] 280 10*3/uL 150-[address] [facility] Protein Test strip Ql (U)Ord ered By: Good Morse on 11-15-2022 Protein Ql (U) Negative Negative [facility] Serum or plasma albumin/glob ulin mass ratioOrdered By: Delma Gonsalves on 11-15-2022 Albumin/Globulin [Mass ratio] 1.1 {ratio} 0.9-2.[address] [facility] Serum or plasma cholesterol in HDL measurement (mass/volume)Ordered By: Delma Gonsalves on 11-15-2022 Cholesterol in HDL [Mass/Vol] 62 mg/dL >[address] [facility] Comment on above: The drugs N-Acetylcy steine and Metamizole may falsely depress this assay. Reference Range HDL <40 mg/dL Low HDL Cholesterol HDL >or= 60 mg/dL High HDL Cholesterol Serum or plasma cholesterol in VLDL measurement (mass/volume)Ordered By: Delma Gonsalves on 11-15-2022 Cholesterol in VLDL [Mass/Vol] 21 mg/dL 5-[address] [facility] Serum or plasma low density lipoprotein (LDL) cholesterol measurement (mass/volume)Ordered By: Delma Gonsalves on 11-15-2022 Cholesterol in LDL [Mass/Vol] 113 mg/dL 0-[address] [facility] Squamous epithelial cells de tection in urine sediment by light microscopyOrdered By: oGod Morse on 11-15-2022 Epithelial cells.squamous LM Ql (Urine sed) 0 SEEN /hpf 0-[address] [facility] Thin prep Papanicolaou smear with manual screeningOrdered By: Delma Gonsalves on 11-15-2022 Thin prep Papanicolaou smear with manual screening 23 U/L 15-[address] [facility] Urine blood detectionOrdered By: Good Morse on 11-15-2022 RBC Ql (U) Negative Negative [facility] RBC Ql (U) 0 SEEN /hpf 0-[address] [facility] Urine clarityOrdered By: Courtney Morse on 11-15-2022 Clarity (U) Clear Clear [facility] Urine color determinationOrd ered By: Good Morse on 11-15-2022 Color (U) Yellow Yellow [facility] Urine glucose detectionOrder ed By: Good Morse on 11-15-2022 Glucose Ql (U) Normal mg/dl Normal [facility] Urine leukocyte esterase det ection by dipstickOrdered By: Good Morse on 11-15-2022 Leukocyte esterase Test strip Ql (U) Negative Negative [facility] Urine pHOrdered By: Devin Morse on 11-15-2022 pH (U) 6.5 [pH] 5.0 - 8.[address] [facility] Urine sediment bacteria coun t by microscopy (number/high power field)Ordered By: Good Morse on 11-15-2022 Bacteria LM.HPF (Urine sed) [#/Area] 0 /[HPF] None Seen [facility] Urine specific gravity measu rementOrdered By: [facility] Morse on 11-15-2022 Specific gravity (U) [Rel density] 1.010 1.002-1.[address] [facility] Urobilinogen Auto test strip Ql (U)Ordered By: Good Morse on 11-15-2022 Urobilinogen Ql (U) Normal mg/dl Normal [facility] Absolute lymphocyte countOrd ered By: Rafa Hernandez on 11-14-2022 Lymphocytes Auto (Unsp spec) [#/Vol] 1.74 10*3/uL 0.83-4.[address] [facility] Basophil percentageOrdered B y: Rafa Hernandez on 11-14-2022 Basophils/100 WBC (Bld) 0.8 % 0-1 [facility] Chloride [Moles/Vol] 106 mmol/L 98-107 [facility] Eosinophils/100 WBC (Bld) 8.5 % 0-[address] [facility] Glucose [Mass/Vol] 107 mg/dL 74-106 [facility] Comment on above: Fasting Glucose resu lt from 100 to 125 mg/dL suggests IMPAIRED HOMEOSTASIS per A.D.A. criteria. Neutrophils (Bld) [#/Vol] 5.8 10*3/uL 2.0-7.[address] [facility] Neutrophils/100 WBC (Bld) 63.8 % 47-[address] [facility] Potassium [Moles/Vol] 3.5 mmol/L 3.5-5.1 [facility] Sodium [Moles/Vol] 142 mmol/L 136-145 [facility] WBC (Bld) [#/Vol] 9.1 10*3/uL 4.4-11.0 [facility] Blood erythrocytes count (nu mber/volume)Ordered By: Rafa Hernandez on 11-14-2022 RBC (Bld) [#/Vol] 4.77 10*6/uL 4.6-6.2 [facility] Blood hemoglobin measurement (mass/volume)Ordered By: Rafa Hernandez on 11-14-2022 Hemoglobin (Bld) [Mass/Vol] 14.0 g/dL 13.0-16.[address] [facility] Blood lymphocytes/100 leukoc ytesOrdered By: Rafa Hernandez on 11-14-2022 Lymphocytes/100 WBC (Bld) 19.2 % 19-[address] [facility] Blood monocytes/100 leukocyt esOrdered By: Rafa Hernandez on 11-14-2022 Monocytes/100 WBC (Bld) 7.4 % 0-10 [facility] Blood platelet mean volumeOr dered By: Rafa Hernandez on 11-14-2022 Platelet mean volume (Bld) [Entitic vol] 10.2 fL 6.2-12.[address] [facility] Determination of erythrocyte mean corpuscular volume (MCV)Ordered By: Rafa Hernandez on 11-14-2022 MCV (RBC) [Entitic vol] 89.3 fL 80-94 [facility] Hematocrit Auto (Bld) [Volum e fraction]Ordered By: Rafa Hernandez on 11-14-2022 Hematocrit (Bld) [Volume fraction] 42.6 % 40-[address] [facility] INR in Blood by Coagulation assayOrdered By: Rafa Hernandez on 11-14-2022 INR Coag (Bld) [Relative time] 1.0 {INR} [facility] Laboratory - Chemistry and C hemistry - challengeOrdered By: Delma Gonsalves on 11-14-2022 Magnesium [Mass/Vol] 2.2 mg/dL 1.6-2.6 [facility] Laboratory - Chemistry and C hemistry - challengeOrdered By: Rafa Hernandez on 11-14-2022 CO2 [Moles/Vol] 29.0 mmol/L 21.0-32.[address] [facility] Urea nitrogen/Creatinine [Mass ratio] 12.9 mg/mg 10-[address] [facility] Laboratory - CoagulationOrde red By: Rafa Hernandez on 11-14-2022 aPTT Coag (Bld) [Time] 31.6 s 24.1-36.2 [facility] PT Coag (PPP) [Time] 13.1 s 11.7-14.9 [facility] Laboratory - Hematology and Cell countsOrdered By: Rafa Hernandez on 11-14-2022 Erythrocyte distribution width (RBC) [Entitic vol] 50.1 fL 35.1-43.[address] [facility] Erythrocyte distribution width (RBC) [Ratio] 15.3 % 11.6-14.[address] [facility] Immature granulocytes/100 WBC (Bld) 0.300 % 0.0-0.[address] [facility] Comment on above: IG% - Immature Granu locytes (promyelocytes, myelocytes and metamyelocytes) > 1% indicates that a LEFT SHIFT is Present. MCH (RBC) [Entitic mass] 29.4 pg 27.0-32.[address] [facility] Nucleated RBC/100 WBC (Bld) [Ratio] 0 % 0-[address] [facility] MCHC Auto (RBC) [Mass/Vol]Or dered By: Rafa Hernandez on 11-14-2022 MCHC (RBC) [Mass/Vol] 32.9 g/dL 32-36 [facility] No Panel InformationOrdered By: Bethel Gallegos on 11-14-2022 Troponin I High Sensitivity 1880 pg/mL 3.0-78.[address] [facility] Comment on above: Critical Result(s) C alled at: 16:40:34 11/14/2022 by: Barbara CHRIS. Results read back by same. Please Note: New Test Units and Gender Specific Reference Ranges. For more information see Policy Stat Procedure [place] High Sensitivity Troponin (TNIH) and attachments. 1880 pg/mL 3.0-78.[address] [facility] No Panel InformationOrdered By: Rafa Hernandez on 11-14-2022 Troponin I High Sensitivity 456 pg/mL 3.0-78.[address] [facility] Comment on above: Critical Result(s) C alled at: 04:44:11 11/14/2022 by: VENTURA SALAZAR. [facility] Results read back by same. Please Note: New Test Units and Gender Specific Reference Ranges. For more information see Policy Stat Procedure [place] High Sensitivity Troponin (TNIH) and attachments. Estimated Creatinine Clearance Calc 31.98 ml/min [facility] Estimated GFR (MDRD) Amer 48 mL/min >[address] [facility] Comment on above: GFR Calc Estimated GFR (MDRD) Non-Af Amer 39 mL/min >[address] [facility] Comment on above: Non- GFR Calc 13.1 SECONDS 11.7-14.[address] [facility] No Panel InformationOrdered By: Delma Gonsalves on 11-14-2022 2.2 mg/dL 1.6-2.[address] [facility] Platelets bldOrdered By: Leo Hernandez on 11-14-2022 Platelets (Bld) [#/Vol] 336 10*3/uL 150-[address] [facility] Serum or plasma calcium jenna urement (mass/volume)Ordered By: Rafa Hernandez on 11-14-2022 Calcium [Mass/Vol] 10.0 mg/dL 8.5-10.1 [facility] Serum or plasma creatinine m easurement (mass/volume)Ordered By: Rafa Hernandez on 11-14-2022 Creatinine [Mass/Vol] 1.78 mg/dL 0.70-1.30 [facility] Comment on above: The validity of the calculated GFR & GFRAA in patients over 70 years has not been determined. Clinical correlation is essential. Serum or plasma urea nitroge n measurement (mass/volume)Ordered By: Rafa Hernandez on 11-14-2022 Urea nitrogen [Mass/Vol] 23 mg/dL 7-[address] [facility] Thin prep Papanicolaou smear with manual screeningOrdered By: Rafa Hernandez on 11-14-2022 Thin prep Papanicolaou smear with manual screening 7 - [facility] Absolute lymphocyte countOrd ered By: Thomas Oropeza on 11-01-2022 Lymphocytes Auto (Unsp spec) [#/Vol] 1.75 10*3/uL 0.83-4.[address] [facility] Basophil percentageOrdered B y: Thomas Oropeza on 11-01-2022 Basophil percentage 88 mg/dL 74-106 [facility] Basophil percentage 142 mmol/L 136-145 [facility] Basophil percentage 3.1 mmol/L 3.5-5.1 [facility] Basophil percentage 108 mmol/L 98-107 [facility] Basophils (Bld) [#/Vol] 10.4 10*3/uL 4.4-11.[address] [facility] Basophils (Bld) [#/Vol] 7.4 10*3/uL 2.0-7.[address] [facility] Basophils/100 WBC (Bld) 0.5 % 0-1 [facility] Basophils/100 WBC (Bld) 71.8 % 47-70 [facility] Basophils/100 WBC (Bld) 1.6 % 0-5 [facility] Chloride [Moles/Vol] 108 mmol/L 98-107 [facility] Eosinophils/100 WBC (Bld) 1.6 % 0-[address] [facility] Glucose [Mass/Vol] 88 mg/dL 74-106 [facility] Neutrophils (Bld) [#/Vol] 7.4 10*3/uL 2.0-7.[address] [facility] Neutrophils/100 WBC (Bld) 71.8 % 47-[address] [facility] Potassium [Moles/Vol] 3.1 mmol/L 3.5-5.1 [facility] Sodium [Moles/Vol] 142 mmol/L 136-145 [facility] WBC (Bld) [#/Vol] 10.4 10*3/uL 4.4-11.0 [facility] Blood erythrocytes count (nu mber/volume)Ordered By: Thomas Oropeza on 11-01-2022 RBC (Bld) [#/Vol] 4.81 10*6/uL 4.6-6.2 [facility] Blood hemoglobin measurement (mass/volume)Ordered By: Thomas Oropeza on 11-01-2022 Hemoglobin (Bld) [Mass/Vol] 14.0 g/dL 13.0-16.[address] [facility] Blood lymphocytes/100 leukoc ytesOrdered By: Thomas Oropeza on 11-01-2022 Lymphocytes/100 WBC (Bld) 16.9 % 19-[address] [facility] Blood monocytes/100 leukocyt esOrdered By: Thomas Oropeza on 11-01-2022 Monocytes/100 WBC (Bld) 8.6 % 0-10 [facility] Blood platelet mean volumeOr dered By: Thomas Oropeza on 11-01-2022 Platelet mean volume (Bld) [Entitic vol] 10.3 fL 6.2-12.[address] [facility] Determination of erythrocyte mean corpuscular volume (MCV)Ordered By: Thomas Oropeza on 11-01-2022 MCV (RBC) [Entitic vol] 88.4 fL 80-94 [facility] Hematocrit Auto (Bld) [Volum e fraction]Ordered By: Thomas Oropeza on 11-01-2022 Hematocrit (Bld) [Volume fraction] 42.5 % 40-[address] [facility] Laboratory - Chemistry and C hemistry - challengeOrdered By: Thomas Oropeza on 11-01-2022 CO2 [Moles/Vol] 29.0 mmol/L 21.0-32.[address] [facility] Urea nitrogen/Creatinine [Mass ratio] 19.1 mg/mg 10-[address] [facility] Laboratory - Hematology and Cell countsOrdered By: Thomas Oropeza on 11-01-2022 Erythrocyte distribution width (RBC) [Entitic vol] 48.8 fL 35.1-43.[address] [facility] Erythrocyte distribution width (RBC) [Ratio] 15.0 % 11.6-14.[address] [facility] Immature granulocytes/100 WBC (Bld) 0.600 % 0.0-0.[address] [facility] Comment on above: IG% - Immature Granu locytes (promyelocytes, myelocytes and metamyelocytes) > 1% indicates that a LEFT SHIFT is Present. MCH (RBC) [Entitic mass] 29.1 pg 27.0-32.[address] [facility] Nucleated RBC/100 WBC (Bld) [Ratio] 0 % 0-[address] [facility] MCHC Auto (RBC) [Mass/Vol]Or dered By: Thomas Oropeza on 11-01-2022 MCHC (RBC) [Mass/Vol] 32.9 g/dL 32-36 [facility] No Panel InformationOrdered By: Thomas Oropeza on 11-01-2022 Estimated Creatinine Clearance Calc 37.45 ml/min [facility] Estimated GFR (MDRD) Amer 57 mL/min >[address] [facility] Comment on above: GFR Calc Estimated GFR (MDRD) Non-Af Amer 47 mL/min >[address] [facility] Comment on above: Non- GFR Calc Troponin I High Sensitivity 32 pg/mL 3.0-78.[address] [facility] Comment on above: Please Note: New Nayeli t Units and Gender Specific Reference Ranges. For more information see Policy Stat Procedure [place] High Sensitivity Troponin (TNIH) and attachments. 29.1 pg 27.0-32.[address] [facility] 15.0 % 11.6-14.[address] [facility] 48.8 fl 35.1-43.[address] [facility] 0.600 % 0.0-0.[address] [facility] 0 % 0-[address] [facility] 47 mL/min >[address] [facility] 57 mL/min >[address] [facility] 37.45 ml/min [facility] 19.1 RATIO 10-[address] [facility] 32 pg/mL 3.0-78.[address] [facility] 29.0 mmol/L 21.0-32.[address] [facility] Platelets bldOrdered By: Benitez Oropeza on 11-01-2022 Platelets (Bld) [#/Vol] 345 10*3/uL 150-[address] [facility] Serum or plasma calcium jenna urement (mass/volume)Ordered By: Thomas Oropeza on 11-01-2022 Calcium [Mass/Vol] 9.5 mg/dL 8.5-10.1 [facility] Serum or plasma creatinine m easurement (mass/volume)Ordered By: Thomas Oropeza on 11-01-2022 Creatinine [Mass/Vol] 1.52 mg/dL 0.70-1.30 [facility] Comment on above: The validity of the calculated GFR & GFRAA in patients over 70 years has not been determined. Clinical correlation is essential. Serum or plasma urea nitroge n measurement (mass/volume)Ordered By: Thomas Oropeza on 11-01-2022 Urea nitrogen [Mass/Vol] 29 mg/dL 7-[address] [facility] Thin prep Papanicolaou smear with manual screeningOrdered By: Thomas Oropeaz on 11-01-2022 Thin prep Papanicolaou smear with manual screening 5 5-[address] [facility] Laboratory - Microbiology an d Antimicrobial susceptibilityOrdered By: Dr. Jose on 08-14-2022 Bacteria identified Cx Nom (Bld) No growth in [address] [facility] Bacteria identified Cx Nom (Bld) No growth in [address] [facility] Culture, urineOrdered By: Dr Neville Jose on 08-10-2022 Bacteria identified Cx Nom (U) Culture exhibits no growth. [facility] Absolute lymphocyte countOrd ered By: Dr. Jose on 08-08-2022 Lymphocytes Auto (Unsp spec) [#/Vol] 0.50 10*3/uL 0.83-4.[address] [facility] Basophil percentageOrdered B y: Dr. Jose on 08-08-2022 Basophil percentage 0-5 SEEN /hpf 0-5 [facility] Basophils/100 WBC (Bld) 0.6 % 0-1 [facility] Bilirubin [Mass/Vol] 0.50 mg/dL 0.20-1.00 [facility] Comment on above: For patients on eltr ombopag therapy, use of Dimension [place] TBIL is not recommended. Chloride [Moles/Vol] 103 mmol/L 98-107 [facility] Eosinophils/100 WBC (Bld) 3.1 % 0-[address] [facility] Glucose [Mass/Vol] 143 mg/dL 74-106 [facility] Comment on above: Fasting Glucose resu lt greater than or equal to 126 mg/dL suggests DIABETES MELLITUS per A.D.A. criteria. Lactate [Moles/Vol] 1.8 mmol/L 0.4-2.0 [facility] Neutrophils (Bld) [#/Vol] 6.4 10*3/uL 2.0-7.[address] [facility] Neutrophils/100 WBC (Bld) 79.7 % 47-[address] [facility] Potassium [Moles/Vol] 3.6 mmol/L 3.5-5.1 [facility] Protein [Mass/Vol] 7.1 g/dL 6.4-8.2 [facility] Sodium [Moles/Vol] 136 mmol/L 136-145 [facility] WBC (Bld) [#/Vol] 8.0 10*3/uL 4.4-11.0 [facility] Basophil percentageOrdered B y: Nanette Jose on 08-08-2022 Basophil percentage 143 mg/dL 74-106 [facility] Basophil percentage 7.1 g/dL 6.4-8.2 [facility] Basophil percentage 0.50 mg/dL 0.20-1.00 [facility] Basophil percentage 136 mmol/L 136-145 [facility] Basophil percentage 3.6 mmol/L 3.5-5.1 [facility] Basophil percentage 103 mmol/L 98-107 [facility] Basophil percentage 1.8 mmol/L 0.4-2.0 [facility] Basophils (Bld) [#/Vol] 8.0 10*3/uL 4.4-11.[address] [facility] Basophils (Bld) [#/Vol] 6.4 10*3/uL 2.0-7.[address] [facility] Basophils/100 WBC (Bld) 79.7 % 47-70 [facility] Basophils/100 WBC (Bld) 3.1 % 0-5 [facility] Bilirubin Test strip Ql (U)O rdered By: Dr. Jose on 08-08-2022 Bilirubin Ql (U) Negative Negative [facility] Blood erythrocytes count (nu mber/volume)Ordered By: Dr. oJse on 08-08-2022 RBC (Bld) [#/Vol] 4.89 10*6/uL 4.6-6.2 [facility] Blood hemoglobin measurement (mass/volume)Ordered By: Dr. Jose on 08-08-2022 Hemoglobin (Bld) [Mass/Vol] 13.9 g/dL 13.0-16.[address] [facility] Blood lymphocytes/100 leukoc ytesOrdered By: Dr. Jose on 08-08-2022 Lymphocytes/100 WBC (Bld) 6.3 % 19-[address] [facility] Blood manual differential co mment interpretation (narrative result)Ordered By: Dr. Jose on 08-08-2022 Manual differential comment Odin (Bld) [Interp] SEE COMMENT [facility] Comment on above: LYMPHOPENIA NOTED Blood monocytes/100 leukocyt esOrdered [address]: [address] Jose on 08-08-2022 Monocytes/100 WBC (Bld) 9.9 % 0-10 [facility] Blood platelet adequacy dete ction by light microscopyOrdered By: Dr. Jose on 08-08-2022 Platelets LM Ql (Bld) ADEQUATE ADEQ [facility] Blood platelet mean volumeOr dered By: Dr. Jose on 08-08-2022 Platelet mean volume (Bld) [Entitic vol] 11.1 fL 6.2-12.[address] [facility] Culture, urineOrdered By: Serjio Jose on 08-08-2022 Bacteria identified Cx Nom (U) Culture exhibits no growth. [facility] Determination of erythrocyte mean corpuscular volume (MCV)Ordered By: Dr. Jose on 08-08-2022 MCV (RBC) [Entitic vol] 88.1 fL 80-94 [facility] Hematocrit Auto (Bld) [Volum e fraction]Ordered By: Dr. Jose on 08-08-2022 Hematocrit (Bld) [Volume fraction] 43.1 % 40-[address] [facility] INR in Blood by Coagulation assayOrdered By: Dr. Jose on 08-08-2022 INR Coag (Bld) [Relative time] 1.1 {INR} [facility] Influenza virus A and B and SARS-CoV-2 (COVID-19) Ag panel - Upper respiratory specimOrdered By: Nanette Jose on 08-08-2022 SARS-CoV-2 (COVID-19) RNA CHUY+probe Ql (Resp) [facility] Influenza virus A and B and SARS-CoV-2 (COVID-19) Ag panel - Upper respiratory specimOrdered By: Dr. Jose on 08-08-2022 SARS-CoV-2 (COVID-19) RNA CHUY+probe Ql (Resp) [facility] Ketones Test strip Ql (U)Ord ered By: Dr. Jose on 08-08-2022 Ketones Ql (U) 5 mg/dl Negative [facility] Laboratory - Chemistry and C hemistry - challengeOrdered By: Dr. Jose on 08-08-2022 ALP [Catalytic activity/Vol] 91 U/L 45-[address] [facility] ALT [Catalytic activity/Vol] 21 U/L 16-[address] [facility] CO2 [Moles/Vol] 24.0 mmol/L 21.0-32.[address] [facility] Globulin (S) [Mass/Vol] 3.5 g/dL 2.2-4.2 [facility] Urea nitrogen/Creatinine [Mass ratio] 11.0 mg/mg 10-[address] [facility] Laboratory - CoagulationOrde red By: Dr. Jose on 08-08-2022 aPTT Coag (Bld) [Time] 33.2 s 24.1-36.2 [facility] PT Coag (PPP) [Time] 14.2 s 11.7-14.9 [facility] Laboratory - Hematology and Cell countsOrdered By: Dr. Jose on 08-08-2022 Erythrocyte distribution width (RBC) [Entitic vol] 49.6 fL 35.1-43.[address] [facility] Erythrocyte distribution width (RBC) [Ratio] 15.5 % 11.6-14.[address] [facility] Immature granulocytes/100 WBC (Bld) 0.400 % 0.0-0.[address] [facility] Comment on above: IG% - Immature Granu locytes (promyelocytes, myelocytes and metamyelocytes) > 1% indicates that a LEFT SHIFT is Present. MCH (RBC) [Entitic mass] 28.4 pg 27.0-32.[address] [facility] Nucleated RBC/100 WBC (Bld) [Ratio] 0 % 0-[address] [facility] Laboratory - Microbiology an d Antimicrobial susceptibilityOrdered By: Nanette Jose on 08-08-2022 Bacteria identified Cx Nom (Bld) No growth in [address] [facility] MCHC Auto (RBC) [Mass/Vol]Or dered By: Dr. Jose on 08-08-2022 MCHC (RBC) [Mass/Vol] 32.3 g/dL 32-36 [facility] Mucus LM Ql (Urine sed)Order ed By: Dr. Jose on 08-08-2022 Mucus Ql (Urine sed) 0 SEEN /hpf [facility] Nitrite Test strip Ql (U)Ord ered By: Dr. Jose on 08-08-2022 Nitrite Ql (U) Negative Negative [facility] No Panel InformationOrdered By: Nanette Joes on 08-08-2022 No growth in 5 days. [facility] 28.4 pg 27.0-32.[address] [facility] 15.5 % 11.6-14.[address] [facility] 49.6 fl 35.1-43.[address] [facility] 0.400 % 0.0-0.[address] [facility] 0 % 0-[address] [facility] 14.2 SECONDS 11.7-14.[address] [facility] 33.2 Seconds 24.1-36.[address] [facility] 39 mL/min >[address] [facility] 47 mL/min >[address] [facility] 31.45 ml/min [facility] 11.0 RATIO 10-[address] [facility] 3.5 g/dL 2.2-4.[address] [facility] [address] [facility] 91 U/L 45-[address] [facility] 21 U/L 16-[address] [facility] 24.0 mmol/L 21.0-32.[address] [facility] No Panel InformationOrdered By: Dr. Jose on 08-08-2022 Estimated Creatinine Clearance Calc 31.45 ml/min [facility] Estimated GFR (MDRD) Amer 47 mL/min >[address] [facility] Comment on above: GFR Calc Estimated GFR (MDRD) Non-Af Amer 39 mL/min >[address] [facility] Comment on above: Non- GFR Calc Platelets bldOrdered By: Dr. Jose on 08-08-2022 Platelets (Bld) [#/Vol] 270 10*3/uL 150-[address] [facility] Protein Test strip Ql (U)Ord ered By: Dr. Jose on 08-08-2022 Protein Ql (U) 30 mg/dl Negative [facility] RBC morphologyOrdered By: Dr Neville Jose on 08-08-2022 RBC morphology finding Nom (Bld) NORM C+C NORMAL NORM C&C [facility] Serum or plasma albumin jenna urement (mass/volume)Ordered By: Dr. Jose on 08-08-2022 Albumin [Mass/Vol] 3.6 g/dL 3.2-5.0 [facility] Serum or plasma albumin/glob ulin mass ratioOrdered By: Dr. Jose on 08-08-2022 Albumin/Globulin [Mass ratio] 1.0 {ratio} 0.9-2.[address] [facility] Serum or plasma calcium jenna urement (mass/volume)Ordered By: Dr. Jose on 08-08-2022 Calcium [Mass/Vol] 9.4 mg/dL 8.5-10.1 [facility] Serum or plasma creatinine m easurement (mass/volume)Ordered By: Dr. Jose on 08-08-2022 Creatinine [Mass/Vol] 1.81 mg/dL 0.70-1.30 [facility] Comment on above: The validity of the calculated GFR & GFRAA in patients over 70 years has not been determined. Clinical correlation is essential. Serum or plasma urea nitroge n measurement (mass/volume)Ordered By: Dr. Jose on 08-08-2022 Urea nitrogen [Mass/Vol] 20 mg/dL 7-[address] [facility] Squamous epithelial cells de tection in urine sediment by light microscopyOrdered By: Dr. Jose on 08-08-2022 Epithelial cells.squamous LM Ql (Urine sed) 0 SEEN /hpf 0-[address] [facility] Thin prep Papanicolaou smear with manual screeningOrdered By: Dr. Jose on 08-08-2022 Thin prep Papanicolaou smear with manual screening 20 U/L 15-[address] [facility] Thin prep Papanicolaou smear with manual screening 9 5-[address] [facility] Urine blood detectionOrdered By: Dr. Jose on 08-08-2022 RBC Ql (U) Negative Negative [facility] RBC Ql (U) 0 SEEN /hpf 0-[address] [facility] Urine clarityOrdered By: Dr. Jose on 08-08-2022 Clarity (U) Clear Clear [facility] Urine color determinationOrd ered By: Dr. Jose on 08-08-2022 Color (U) Yellow Yellow [facility] Urine glucose detectionOrder ed By: Dr. Jose on 08-08-2022 Glucose Ql (U) Normal mg/dl Normal [facility] Urine leukocyte esterase det ection by dipstickOrdered By: Dr. Jose on 08-08-2022 Leukocyte esterase Test strip Ql (U) 25 /ul Negative [facility] Urine pHOrdered By: Dr. Jade palacios on 08-08-2022 pH (U) 5.0 [pH] 5.0 - 8.[address] [facility] Urine sediment bacteria coun t by microscopy (number/high power field)Ordered By: Dr. Jose on 08-08-2022 Bacteria LM.HPF (Urine sed) [#/Area] 0 /[HPF] None Seen [facility] Urine specific gravity measu rementOrdered By: Dr. Jose on 08-08-2022 Specific gravity (U) [Rel density] 1.025 1.002-1.[address] [facility] Urobilinogen Auto test strip Ql (U)Ordered By: Dr. Jose on 08-08-2022 Urobilinogen Ql (U) 1 mg/dl Normal [facility] Absolute lymphocyte countOrd ered By: Nick Maguire on 07-26-2022 Lymphocytes Auto (Unsp spec) [#/Vol] 1.01 10*3/uL 0.83-4.[address] [facility] Basophil percentageOrdered B y: Nick Maguire on 07-26-2022 Basophil percentage 2.9 mg/dL 2.5-4.9 [facility] Basophils (Bld) [#/Vol] 8.3 10*3/uL 4.4-11.[address] [facility] Basophils (Bld) [#/Vol] 6.0 10*3/uL 2.0-7.[address] [facility] Basophils/100 WBC (Bld) 1.1 % 0-1 [facility] Basophils/100 WBC (Bld) 72.1 % 47-70 [facility] Basophils/100 WBC (Bld) 6.3 % 0-5 [facility] Eosinophils/100 WBC (Bld) 6.3 % 0-[address] [facility] Neutrophils (Bld) [#/Vol] 6.0 10*3/uL 2.0-7.[address] [facility] Neutrophils/100 WBC (Bld) 72.1 % 47-[address] [facility] WBC (Bld) [#/Vol] 8.3 10*3/uL 4.4-11.0 [facility] Basophil percentageOrdered B y: Tiki Saldivar on 07-26-2022 Basophil percentage 102 mg/dL 74-106 [facility] Basophil percentage 142 mmol/L 136-145 [facility] Basophil percentage 4.0 mmol/L 3.5-5.1 [facility] Basophil percentage 112 mmol/L 98-107 [facility] Basophil percentageOrdered B y: Dr. Saldivar on 07-26-2022 Chloride [Moles/Vol] 112 mmol/L 98-107 [facility] Glucose [Mass/Vol] 102 mg/dL 74-106 [facility] Comment on above: Fasting Glucose resu lt from 100 to 125 mg/dL suggests IMPAIRED HOMEOSTASIS per A.D.A. criteria. Potassium [Moles/Vol] 4.0 mmol/L 3.5-5.1 [facility] Sodium [Moles/Vol] 142 mmol/L 136-145 [facility] Blood erythrocytes count (nu mber/volume)Ordered By: Nick Maguire on 07-26-2022 RBC (Bld) [#/Vol] 4.26 10*6/uL 4.6-6.2 [facility] Blood hemoglobin measurement (mass/volume)Ordered By: Nick Maguire on 07-26-2022 Hemoglobin (Bld) [Mass/Vol] 11.9 g/dL 13.0-16.[address] [facility] Blood lymphocytes/100 leukoc ytesOrdered By: Nick Maguire on 07-26-2022 Lymphocytes/100 WBC (Bld) 12.2 % 19-[address] [facility] Blood monocytes/100 leukocyt esOrdered By: Nick Maguire on 07-26-2022 Monocytes/100 WBC (Bld) 8.1 % 0-10 [facility] Blood platelet mean volumeOr dered By: Nick Maguire on 07-26-2022 Platelet mean volume (Bld) [Entitic vol] 10.6 fL 6.2-12.[address] [facility] Determination of erythrocyte mean corpuscular volume (MCV)Ordered By: Nick Maguire on 07-26-2022 MCV (RBC) [Entitic vol] 90.4 fL 80-94 [facility] Hematocrit Auto (Bld) [Volum e fraction]Ordered By: Nick Maguire on 07-26-2022 Hematocrit (Bld) [Volume fraction] 38.5 % 40-[address] [facility] Laboratory - Chemistry and C hemistry - challengeOrdered By: Dr. Saldivar on 07-26-2022 CO2 [Moles/Vol] 27.0 mmol/L 21.0-32.[address] [facility] Urea nitrogen/Creatinine [Mass ratio] 15.2 mg/mg 10-[address] [facility] Laboratory - Chemistry and C hemistry - challengeOrdered By: Nick Maguire on 07-26-2022 Magnesium [Mass/Vol] 2.1 mg/dL 1.6-2.6 [facility] Laboratory - Hematology and Cell countsOrdered By: Nick Maguire on 07-26-2022 Erythrocyte distribution width (RBC) [Entitic vol] 52.0 fL 35.1-43.[address] [facility] Erythrocyte distribution width (RBC) [Ratio] 15.9 % 11.6-14.[address] [facility] Immature granulocytes/100 WBC (Bld) 0.200 % 0.0-0.[address] [facility] Comment on above: IG% - Immature Granu locytes (promyelocytes, myelocytes and metamyelocytes) > 1% indicates that a LEFT SHIFT is Present. MCH (RBC) [Entitic mass] 27.9 pg 27.0-32.[address] [facility] Nucleated RBC/100 WBC (Bld) [Ratio] 0 % 0-[address] [facility] MCHC Auto (RBC) [Mass/Vol]Or dered By: Nick Maguire on 07-26-2022 MCHC (RBC) [Mass/Vol] 30.9 g/dL 32-36 [facility] No Panel InformationOrdered By: Dr. Saldivar on 07-26-2022 Estimated Creatinine Clearance Calc 37.69 ml/min [facility] Estimated GFR (MDRD) Amer 58 mL/min >[address] [facility] Comment on above: GFR Calc Estimated GFR (MDRD) Non-Af Amer 48 mL/min >[address] [facility] Comment on above: Non- GFR Calc No Panel InformationOrdered By: Nick Maguire on 07-26-2022 27.9 pg 27.0-32.[address] [facility] 15.9 % 11.6-14.[address] [facility] 52.0 fl 35.1-43.[address] [facility] 0.200 % 0.0-0.[address] [facility] 0 % 0-[address] [facility] 2.1 mg/dL 1.6-2.[address] [facility] No Panel InformationOrdered By: Tiki Saldivar on 07-26-2022 48 mL/min >[address] [facility] 58 mL/min >[address] [facility] 37.69 ml/min [facility] 15.2 RATIO 10-[address] [facility] 27.0 mmol/L 21.0-32.[address] [facility] Platelets bldOrdered By: Jasmyn Maguire on 07-26-2022 Platelets (Bld) [#/Vol] 339 10*3/uL 150-[address] [facility] Serum or plasma calcium jenna urement (mass/volume)Ordered By: Dr. Saldivar on 07-26-2022 Calcium [Mass/Vol] 8.7 mg/dL 8.5-10.1 [facility] Serum or plasma creatinine m easurement (mass/volume)Ordered By: Dr. Saldivar on 07-26-2022 Creatinine [Mass/Vol] 1.51 mg/dL 0.70-1.30 [facility] Comment on above: The validity of the calculated GFR & GFRAA in patients over 70 years has not been determined. Clinical correlation is essential. Serum or plasma urea nitroge n measurement (mass/volume)Ordered By: Dr. Saldivar on 07-26-2022 Urea nitrogen [Mass/Vol] 23 mg/dL 7-[address] [facility] Thin prep Papanicolaou smear with manual screeningOrdered By: Dr. Saldivar on 07-26-2022 Thin prep Papanicolaou smear with manual screening 3 5-[address] [facility] Absolute lymphocyte countOrd ered By: Dr. Eli on 07-25-2022 Lymphocytes Auto (Unsp spec) [#/Vol] 0.62 10*3/uL 0.83-4.[address] [facility] Basophil percentageOrdered B y: Dr. Eli on 07-25-2022 Basophil percentage 0-5 SEEN /hpf 0-5 [facility] Basophils/100 WBC (Bld) 0.6 % 0-1 [facility] Bilirubin [Mass/Vol] 0.70 mg/dL 0.20-1.00 [facility] Comment on above: For patients on eltr ombopag therapy, use of Dimension [place] TBIL is not recommended. Chloride [Moles/Vol] 106 mmol/L 98-107 [facility] Eosinophils/100 WBC (Bld) 0.8 % 0-[address] [facility] Glucose [Mass/Vol] 151 mg/dL 74-106 [facility] Comment on above: Fasting Glucose resu lt greater than or equal to 126 mg/dL suggests DIABETES MELLITUS per A.D.A. criteria. Neutrophils (Bld) [#/Vol] 15.1 10*3/uL 2.0-7.[address] [facility] Neutrophils/100 WBC (Bld) 89.5 % 47-[address] [facility] Potassium [Moles/Vol] 4.6 mmol/L 3.5-5.1 [facility] Protein [Mass/Vol] 7.5 g/dL 6.4-8.2 [facility] Sodium [Moles/Vol] 139 mmol/L 136-145 [facility] WBC (Bld) [#/Vol] 16.8 10*3/uL 4.4-11.0 [facility] Basophil percentageOrdered B y: Barney Eli on 07-25-2022 Basophil percentage 7.5 g/dL 6.4-8.2 [facility] Basophil percentage 0.70 mg/dL 0.20-1.00 [facility] Bilirubin Test strip Ql (U)O rdered By: Dr. Eli on 07-25-2022 Bilirubin Ql (U) Negative Negative [facility] Blood erythrocytes count (nu mber/volume)Ordered By: Dr. Eli on 07-25-2022 RBC (Bld) [#/Vol] 5.37 10*6/uL 4.6-6.2 [facility] Blood hemoglobin measurement (mass/volume)Ordered By: Dr. Eli on 07-25-2022 Hemoglobin (Bld) [Mass/Vol] 15.1 g/dL 13.0-16.[address] [facility] Blood lymphocytes/100 leukoc ytesOrdered By: Dr. Eli on 07-25-2022 Lymphocytes/100 WBC (Bld) 3.7 % 19-[address] [facility] Blood monocytes/100 leukocyt esOrdered By: Dr. Eli on 07-25-2022 Monocytes/100 WBC (Bld) 4.8 % 0-10 [facility] Blood platelet mean volumeOr dered By: Dr. Eli on 07-25-2022 Platelet mean volume (Bld) [Entitic vol] 10.4 fL 6.2-12.[address] [facility] Determination of erythrocyte mean corpuscular volume (MCV)Ordered By: Dr. Eli on 07-25-2022 MCV (RBC) [Entitic vol] 87.3 fL 80-94 [facility] Hematocrit Auto (Bld) [Volum e fraction]Ordered By: Dr. Eli on 07-25-2022 Hematocrit (Bld) [Volume fraction] 46.9 % 40-[address] [facility] Ketones Test strip Ql (U)Ord ered By: Dr. Eli on 07-25-2022 Ketones Ql (U) Negative Negative [facility] Laboratory - Chemistry and C hemistry - challengeOrdered By: Dr. Eli on 07-25-2022 ALP [Catalytic activity/Vol] 97 U/L 45-[address] [facility] ALT [Catalytic activity/Vol] 28 U/L 16-[address] [facility] CO2 [Moles/Vol] 27.0 mmol/L 21.0-32.[address] [facility] Globulin (S) [Mass/Vol] 3.4 g/dL 2.2-4.2 [facility] Lipase [Catalytic activity/Vol] 184 U/L 73-[address] [facility] Urea nitrogen/Creatinine [Mass ratio] 16.8 mg/mg 10-[address] [facility] Laboratory - Hematology and Cell countsOrdered By: Dr. Eli on 07-25-2022 Erythrocyte distribution width (RBC) [Entitic vol] 50.4 fL 35.1-43.[address] [facility] Erythrocyte distribution width (RBC) [Ratio] 15.8 % 11.6-14.[address] [facility] Immature granulocytes/100 WBC (Bld) 0.600 % 0.0-0.[address] [facility] Comment on above: IG% - Immature Granu locytes (promyelocytes, myelocytes and metamyelocytes) > 1% indicates that a LEFT SHIFT is Present. MCH (RBC) [Entitic mass] 28.1 pg 27.0-32.[address] [facility] Nucleated RBC/100 WBC (Bld) [Ratio] 0 % 0-[address] [facility] MCHC Auto (RBC) [Mass/Vol]Or dered By: Dr. Eli on 07-25-2022 MCHC (RBC) [Mass/Vol] 32.2 g/dL 32-36 [facility] Mucus LM Ql (Urine sed)Order ed By: Dr. Eli on 07-25-2022 Mucus Ql (Urine sed) 0 SEEN /hpf [facility] Nitrite Test strip Ql (U)Ord ered By: Dr. Eli on 07-25-2022 Nitrite Ql (U) Negative Negative [facility] No Panel InformationOrdered By: Dr. Eli on 07-25-2022 Estimated Creatinine Clearance Calc 30.36 ml/min [facility] Estimated GFR (MDRD) Amer 47 mL/min >[address] [facility] Comment on above: GFR Calc Estimated GFR (MDRD) Non-Af Amer 39 mL/min >[address] [facility] Comment on above: Non- GFR Calc No Panel InformationOrdered By: Barney Eli on 07-25-2022 3.4 g/dL 2.2-4.[address] [facility] 184 U/L 73-[address] [facility] 97 U/L 45-[address] [facility] 28 U/L 16-[address] [facility] Platelets bldOrdered By: Dr. Eli on 07-25-2022 Platelets (Bld) [#/Vol] 435 10*3/uL 150-[address] [facility] Protein Test strip Ql (U)Ord ered By: Dr. Eli on 07-25-2022 Protein Ql (U) 30 mg/dl Negative [facility] Serum or plasma albumin jenna urement (mass/volume)Ordered By: Dr. Eli on 07-25-2022 Albumin [Mass/Vol] 4.1 g/dL 3.2-5.0 [facility] Serum or plasma albumin/glob ulin mass ratioOrdered By: Dr. Eli on 07-25-2022 Albumin/Globulin [Mass ratio] 1.2 {ratio} 0.9-2.[address] [facility] Serum or plasma calcium jenna urement (mass/volume)Ordered By: Dr. Eli on 07-25-2022 Calcium [Mass/Vol] 10.5 mg/dL 8.5-10.1 [facility] Serum or plasma creatinine m easurement (mass/volume)Ordered By: Dr. Eli on 07-25-2022 Creatinine [Mass/Vol] 1.79 mg/dL 0.70-1.30 [facility] Comment on above: The validity of the calculated GFR & GFRAA in patients over 70 years has not been determined. Clinical correlation is essential. Serum or plasma urea nitroge n measurement (mass/volume)Ordered By: Dr. Eli on 07-25-2022 Urea nitrogen [Mass/Vol] 30 mg/dL 7-[address] [facility] Squamous epithelial cells de tection in urine sediment by light microscopyOrdered By: Dr. Eli on 07-25-2022 Epithelial cells.squamous LM Ql (Urine sed) 0 SEEN /hpf 0-[address] [facility] Thin prep Papanicolaou smear with manual screeningOrdered By: Dr. Eli on 07-25-2022 Thin prep Papanicolaou smear with manual screening 28 U/L 15-[address] [facility] Thin prep Papanicolaou smear with manual screening 6 5-[address] [facility] Urine blood detectionOrdered By: Dr. Eli on 07-25-2022 RBC Ql (U) Negative Negative [facility] RBC Ql (U) 0 SEEN /hpf 0-[address] [facility] Urine clarityOrdered By: Dr. Eli on 07-25-2022 Clarity (U) Clear Clear [facility] Urine color determinationOrd ered By: Dr. Eli on 07-25-2022 Color (U) Yellow Yellow [facility] Urine glucose detectionOrder ed By: Dr. Eli on 07-25-2022 Glucose Ql (U) Normal mg/dl Normal [facility] Urine leukocyte esterase det ection by dipstickOrdered By: Dr. Eli on 07-25-2022 Leukocyte esterase Test strip Ql (U) 25 /ul Negative [facility] Urine pHOrdered By: Dr. Cristiano urbano on 07-25-2022 pH (U) 6.5 [pH] 5.0 - 8.[address] [facility] Urine sediment bacteria coun t by microscopy (number/high power field)Ordered By: Dr. Eli on 07-25-2022 Bacteria LM.HPF (Urine sed) [#/Area] 0 /[HPF] None Seen [facility] Urine specific gravity measu rementOrdered By: Dr. Eli on 07-25-2022 Specific gravity (U) [Rel density] 1.015 1.002-1.[address] [facility] Urobilinogen Auto test strip Ql (U)Ordered By: Dr. Eli on 07-25-2022 Urobilinogen Ql (U) Normal mg/dl Normal [facility] CNPNon 07-14-2022 CNPN Telephone (UROLWS) BETTE CLEMENTS ([id number]) 1945 M Date Time Provider Department 07/14/22 AREN MCARTHUR During your visit today, we recorded the following information about you: Aren Mcarthur PA-C 07/14/2022 9:56 AM Signed Please let patient know his repeat PSA Is > 100.00 and the IsoPSA was not performed due to high PSA A prostate biopsy is the recommend next step to diagnosis prostate cancer. Let me know if he wishes to go forward with biopsy [place] or [place] I did already talk in detail about this being a possibility so he was knows but was going to think about it. Aren Mcarthur, [facility] [place], CECILIA Carter LPN 07/14/2022 11:03 AM Signed Called patient. Verified name and date of . Patient informed and verbalizes understanding. States he has thought about it and wants to use Dr. Merida with [facility]. Reports his health is poor and is followed primarily by providers at [facility]. Lyubov Carter LPN Allergies As of Date: 07/14/2022 Noted Allergy Reaction PAROXETINE 05/10/2014 16 - Unknown Comments: From Paxil SERTRALINE 05/10/2014 16 - Unknown Comments: From Zoloft ALCOHOL 06/04/2008 4 - Hives Comments: Rubbing alcohol ASPIRIN 01/06/2005 5 - Intolerance Comments: WHEEZE AUGMENTIN (AMOXICILLIN-POT CLAVUL*01/06/2005 5 - Intolerance Comments: tingling all over CLAVULANIC ACID 01/10/2019 16 - Unknown Comments: From Augmentin DARVON (PROPOXYPHENE HCL) 01/06/2005 5 - Intolerance DOXYCYCLINE 07/13/2006 2 - Rash 9 - Itching Environmental allergies [Other] 02/22/2006 Comments: Cats, molds LIPITOR (ATORVASTATIN) 01/06/2005 5 - Intolerance NAPROSYN (NAPROXEN) 01/06/2005 5 - Intolerance PAXIL (PAROXETINE HCL) 01/06/2005 5 - Intolerance SPIRIVA WITH HANDIHALER (TIOTROPI*01/06/2005 5 - Intolerance Comments: IRRITABLE,DEPRESSED tape [Other] 02/17/2008 TOPROL XL (METOPROLOL) 01/06/2005 2 - Rash Comments: RASH ZOCOR (SIMVASTATIN) 01/06/2005 5 - Intolerance ZOLOFT (SERTRALINE HCL) 01/06/2005 5 - Intolerance ADHESIVE 01/10/2019 2 - Rash Date Reviewed: 07/10/2022 Reviewed by: Charla Perez - Fully Assessed Reason for Visit: Results [95] Orders [681] Primary Visit Diagnosis:Elevated prostate specific antigen (PSA) [R97.20] Order(s):PROSTATE BIOPSY BLADE [[id number]] Order #: [id number] Prescriptions as of 07/14/2022 - mirtazapine (REMERON) 15 mg tablet Take 15 mg by mouth daily at bedtime. - ipratropium 20 mcg-albuterol 100 mcg (COMBIVENT RESPIMAT) 20-100 mcg/actuation inhaler NEEDED - fluticasone (FLONASE) 50 mcg/actuation nasal spray Use 1 Wrens in each nostril once daily. - verapamil SR (CALAN SR, ISOPTIN SR) 120 mg CR tablet 240 mg once daily. - loperamide HCl (IMODIUM) 2 mg tab Take 2 mg by mouth as needed (diarrhea). - budesonide (PULMICORT) 0.5 mg/2 mL nebulizer solution Use 0.5 mg via nebulizer twice daily. - PERFOROMIST 20 mcg/2 mL nebu Use 20 mcg via nebulizer every 12 hours. - tamsulosin ER (FLOMAX) 0.4 mg cp24 Take 0.4 mg by mouth once daily. - LORazepam (ATIVAN) 0.5 mg tab Take three tablets by mouth at bedtime as needed. - clopidogrel (PLAVIX) 75 mg tablet Take 1 tablet by mouth once daily. - ipratropium-albuterol 20-100 mcg/Puff aero inhaler Inhale 1 Puff as instructed every 6 hours as needed. - Szufmwmltzc-Yuhyvxkbt-K it C-Mn (GLUCOSAMINE CHONDROITIN MAXSTR) 500-400 mg cap Take 2 capsules by mouth once daily. - piroxicam (FELDENE) 10 mg capsule Take 1 capsule by mouth once daily. - nitroglycerin sublingual (NITROSTAT) 0.4 mg SUBLINGUAL SL tablet Dissolve 1 tablet under the tongue as needed. - Garlic ORAL Cap Take one(1) capsule daily. - OTC NUTRITIONAL SUPPLEMENT red yeast rice 1200 mg daily Problem List As Of Date 07/14/2022 Noted Resolved COPD (chronic obstructive pulmonary disease) (H*02/27/2005 Coronary atherosclerosis [I25.10] 02/27/2005 BENIGN HYPERTENSION [I10] 02/27/2005 Other hyperlipidemia [E78.49] 02/27/2005 ESOPHAGEAL REFLUX [K21.9] 02/27/2005 INSOMNIA NOS [G47.00] 02/27/2005 Unspecified hypertrophic and atrophic condition*02/27/2006 06/12/2010 ALLERGIC RHINITIS NOS [J30.9] 07/29/2006 CHRONIC SINUSITIS NOS [J32.9] 07/29/2006 Abdominal Pain, Right Lower Quadrant [R10.31] 08/09/2007 12/10/2009 Reflux esophagitis [K21.00] 06/12/2010 MALIGNANT NEOPLASM COLON NOS [C18.9] 09/21/2007 ACUTE GASTRITIS W/O HEMORRHAGE [K29.00] 09/21/2007 DIAPHRAGMATIC HERNIA [K44.9] 09/21/2007 MALIGNANT NEOPL RECTUM [C20] 12/05/2007 Renal failure, unspecified [N19] 12/06/2007 06/15/2011 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 Normal [facility] ISOPSA ASSAY FOR UROLOGY USE ONLYon 07-13-2022 Interpretation IsoPSA test was not performed, as the test has not been validated in patients with tPSA >100.0ng/mL. Test Performed by [facility] [employer], [address] [place] [id number] [place] [address] IsoPSA Not performed [facility] TPSA Results >100.0 [facility] ISOPSA ASSAY FOR UROLOGY USE ONLYon 07-10-2022 INTERPRETATION Normal [facility] Comment on above: Order Comment: Speci men Type: BLOOD SPECIMEN Ordering Facility: [facility] Address: [address] [place] [address] Result Comment: IsoP SA test was not performed, as the test has not been validated in patients with tPSA >100.0ng/mL. Test Performed by [facility], [employer], [address] [place] [address] Performed By: #### I SOPSA #### [facility] CLIA [id number] [address] [place] [address] AVE [place] [id number] ISOPSA INDEX Not performed Normal [facility] Comment on above: Order Comment: Speci men Type: BLOOD SPECIMEN Ordering Facility: [facility] Address: [address] [place] [address] Performed By: #### I SOPSA #### [facility] CLIA [id number] [address] [place] [address] [address] [place], [place] [id number] TPSA RESULTS >100.0 Normal [facility] Comment on above: Order Comment: Speci men Type: BLOOD SPECIMEN Ordering Facility: [facility] Address: [address] [place] [address] Performed By: #### I SOPSA #### [facility] CLIA [id number] [address] [facility] [place] [address] UA DIP, URINE (POC)on 2022 BILIRUBIN UA (POCT) Negative Negative [facility] CLARITY UA (POCT) Clear [facility] COLOR UA (POCT) Yellow [facility] GLUCOSE UA (POCT) Negative Negative mg/dL [facility] HEMOGLOBIN/BLOOD UA (POCT) Negative Negative [facility] KETONE UA (POCT) Negative Negative mg/dL [facility] LEUKOCYTES UA (POCT) Negative Negative [facility] NITRITE UA (POCT) Negative Negative [facility] PH UA (POCT) 5.5 4.5 - 8.0 [facility] Protein Ql (U) Negative Negative mg/dL [facility] SPECIFIC GRAVITY UA (POCT) 1.020 1.005 - 1.030 [facility] UROBILINOGEN UA (POCT) 0.2 E.U./dL Dolores l E.U./dL [facility] Absolute lymphocyte countOrd ered By: Dr. Sanchez on 07-06-2022 Lymphocytes Auto (Unsp spec) [#/Vol] 1.10 10*3/uL 0.83-4.[address] [facility] Basophil percentageOrdered B y: Dr. Sanchez on 07-06-2022 Basophils/100 WBC (Bld) 1.1 % 0-1 [facility] Bilirubin [Mass/Vol] 0.60 mg/dL 0.20-1.00 [facility] Comment on above: For patients on eltr ombopag therapy, use of Dimension Chinle TBIL is not recommended. Chloride [Moles/Vol] 104 mmol/L 98-107 [facility] Eosinophils/100 WBC (Bld) 9.0 % 0-[address] [facility] Glucose [Mass/Vol] 101 mg/dL 74-106 [facility] Comment on above: Fasting Glucose resu lt from 100 to 125 mg/dL suggests IMPAIRED HOMEOSTASIS per A.D.A. criteria. Neutrophils (Bld) [#/Vol] 6.0 10*3/uL 2.0-7.[address] [facility] Neutrophils/100 WBC (Bld) 70.0 % 47-[address] [facility] Potassium [Moles/Vol] 4.1 mmol/L 3.5-5.1 [facility] Protein [Mass/Vol] 7.0 g/dL 6.4-8.2 [facility] Sodium [Moles/Vol] 139 mmol/L 136-145 [facility] WBC (Bld) [#/Vol] 8.5 10*3/uL 4.4-11.0 [facility] Blood erythrocytes count (nu mber/volume)Ordered By: Dr. Sanchez on 07-06-2022 RBC (Bld) [#/Vol] 4.92 10*6/uL 4.6-6.2 [facility] Blood hemoglobin measurement (mass/volume)Ordered By: Dr. Sanchez on 07-06-2022 Hemoglobin (Bld) [Mass/Vol] 13.5 g/dL 13.0-16.[address] [facility] Blood lymphocytes/100 leukoc ytesOrdered By: Dr. Sanchez on 07-06-2022 Lymphocytes/100 WBC (Bld) 12.9 % 19-[address] [facility] Blood monocytes/100 leukocyt esOrdered By: Dr. Sanchez on 07-06-2022 Monocytes/100 WBC (Bld) 6.8 % 0-10 [facility] Blood platelet mean volumeOr dered By: Dr. Sanchez on 07-06-2022 Platelet mean volume (Bld) [Entitic vol] 10.8 fL 6.2-12.[address] [facility] Determination of erythrocyte mean corpuscular volume (MCV)Ordered By: Dr. Sanchez on 07-06-2022 MCV (RBC) [Entitic vol] 87.2 fL 80-94 [facility] Hematocrit Auto (Bld) [Volum e fraction]Ordered By: Dr. Sanchez on 07-06-2022 Hematocrit (Bld) [Volume fraction] 42.9 % 40-[address] [facility] Laboratory - Chemistry and C hemistry - challengeOrdered By: Dr. Sanchez on 07-06-2022 ALP [Catalytic activity/Vol] 88 U/L 45-[address] [facility] ALT [Catalytic activity/Vol] 24 U/L 16-[address] [facility] CO2 [Moles/Vol] 28.0 mmol/L 21.0-32.0 [facility] Globulin (S) [Mass/Vol] 3.4 g/dL 2.2-4.2 [facility] Urea nitrogen/Creatinine [Mass ratio] 16.8 mg/mg 10-[address] [facility] Laboratory - Hematology and Cell countsOrdered By: Dr. Sanchez on 07-06-2022 Erythrocyte distribution width (RBC) [Entitic vol] 50.2 fL 35.1-43.[address] [facility] Erythrocyte distribution width (RBC) [Ratio] 15.7 % 11.6-14.[address] [facility] Immature granulocytes/100 WBC (Bld) 0.200 % 0.0-0.[address] [facility] Comment on above: IG% - Immature Granu locytes (promyelocytes, myelocytes and metamyelocytes) > 1% indicates that a LEFT SHIFT is Present. MCH (RBC) [Entitic mass] 27.4 pg 27.0-32.[address] [facility] Nucleated RBC/100 WBC (Bld) [Ratio] 0 % 0-[address] [facility] MCHC Auto (RBC) [Mass/Vol]Or dered By: Dr. Sanchez on 07-06-2022 MCHC (RBC) [Mass/Vol] 31.5 g/dL 32-36 [facility] No Panel InformationOrdered By: Dr. Sanchez on 07-06-2022 Estimated GFR (MDRD) Amer 54 mL/min >[address] [facility] Comment on above: GFR Calc Estimated GFR (MDRD) Non-Af Amer 44 mL/min >[address] [facility] Comment on above: Non- GFR Calc Prostate Specific Antigen Screen 158.00 ng/mL 0.00-4.[address] [facility] Comment on above: This test was perfor med using the TPSA assay method for the[employer] chemistry system. Values obtained with differentassay methods cannot be used interchangably.When changing PSA assays in the course of monitoring apatient, additional sequential testing should be carriedout to confirm baseline values. Platelets bldOrdered By: Dr. Sanchez on 07-06-2022 Platelets (Bld) [#/Vol] 392 10*3/uL 150-[address] [facility] Serum or plasma albumin jenna urement (mass/volume)Ordered By: Dr. Sanchez on 07-06-2022 Albumin [Mass/Vol] 3.6 g/dL 3.2-5.0 [facility] Serum or plasma albumin/glob ulin mass ratioOrdered By: Dr. Sanchez on 07-06-2022 Albumin/Globulin [Mass ratio] 1.1 {ratio} 0.9-2.[address] [facility] Serum or plasma calcium jenna urement (mass/volume)Ordered By: Dr. Sanchez on 07-06-2022 Calcium [Mass/Vol] 9.6 mg/dL 8.5-10.1 [facility] Serum or plasma creatinine m easurement (mass/volume)Ordered By: Dr. Sanchez on 07-06-2022 Creatinine [Mass/Vol] 1.61 mg/dL 0.70-1.30 [facility] Comment on above: The validity of the calculated GFR & GFRAA in patients over 70 years has not been determined. Clinical correlation is essential. Serum or plasma urea nitroge n measurement (mass/volume)Ordered By: Dr. Sanchez on 07-06-2022 Urea nitrogen [Mass/Vol] 27 mg/dL 7-[address] [facility] Thin prep Papanicolaou smear with manual screeningOrdered By: Dr. Sanchez on 07-06-2022 Thin prep Papanicolaou smear with manual screening 14 U/L 15-[address] [facility] Thin prep Papanicolaou smear with manual screening 7 5-[address] [facility] Basophil percentageOrdered B y: Dr. Rodríguez on 05-19-2022 Creatinine [Mass/Vol] 1.1 mg/dL 0.70-1.30 [facility] No Panel InformationOrdered By: Dr. Rodríguez on 05-19-2022 Bedside Estimated GFR (eGFR) > 60.0000 mL/min >[address] [facility] No Panel InformationOrdered By: Dr. Sanchez on 03-25-2022 Miscellaneous Test See comment [facility] Comment on above: TEST RESULT LIMITSBe nzodiazepine Conf, MS, UR Benzodiazepines Negative [id number] TESTING PERFORMED AT [facility]. ORIGINAL REPORT ON FILE IN LAB CONTAINS ADDITIONAL TEST SITE INFORMATION. Laboratory - Drug toxicology on 12-29-2021 Amphetamines Ql (U) Negative <1000 ng/mL [facility] Work Phone: Benzodiazepines Ql (U) Negative < 200 ng/mL [facility] Work Phone: Cannabinoids Screen Ql (U) Negative < 50 ng/mL [facility] Work Phone: Cocaine Ql (U) Negative < 300 ng/mL [facility] Work Phone: Opiates Ql (U) Negative < 300 ng/mL [facility] Work Phone: No Panel Informationon 12-29 MDMA (Ecstasy) Screen Negative < 500 ng/mL [facility] Work Phone: Urine Barbiturates Screen Negative < 200 ng/mL [facility] Work Phone: Urine Drug Screen Comment [facility] Work Phone: Comment on above: CONFIRMATORY TESTING FOR ALL POSITIVE URINE DRUG SCREENRESULTS WILL ONLY BE SENT OUT UPON PHYSICIAN ORDER. VISTA Urine Drug Screen methods provide only preliminaryanalytical test results. A more specific alternate chemicalmethod must be used in order to obtain a confirmedanalytical result. Gas chromatography/mass spectrometery(GC/MS) is the preferred confirmatory method. Clinicalconsideration and professional judgement should be appliedto any drug of abuse test result, particularly whenpreliminary positive results are used. URINE TCA TESTING MUST BE ORDERED SEPARATELY. USE TESTMNEMONIC: [facility] Urine Methadone Screen Negative < 300 ng/mL [facility] Work Phone: Urine Benzodiazepine Confirmation Negative [id number] [facility] Work Phone: Comment on above: Performed at: [facility] Mandeep kincaid [facility] [id number] [place], [place] [id number] Director: Belle Alicea PhD, Phone: [phone] Urine phencyclidine (PCP) de tectionon 12-29-2021 Phencyclidine Ql (U) Negative < 25 ng/mL [facility] Work Phone: ACT,Whole Bloodon 06-07-2020 ACT,Whole Blood 202 s High 90-134 [facility] Comment on above: Result Comment: ACTB O Performed by [employer] ID: [id number] [place], [place] ACT testing is not intended for patients taking aprotonin, patients with hematocrits of <20% or >55%, patients using other types of anticoagulation medications, and patients with Lupus Anticoagulant. Performed By: #### A CTBO #### [facility] [employer] [address] [address] ACT,Whole Blood 271 s High 90-134 [facility] Comment on above: Result Comment: ACTB O Performed by [email or web address] ID: [id number] [place], [place] ACT testing is not intended for patients taking aprotonin, patients with hematocrits of <20% or >55%, patients using other types of anticoagulation medications, and patients with Lupus Anticoagulant. Performed By: #### A CTBO #### [facility] [employer] [address] [address] Activated clotting timeon Activated Clotting Time 202 s High 90 - 134 s [facility] [place] Comment on above: ACTBO Performed by [email or web address] ID: [id number] [place], [place] ACT testing is not intended for patients taking aprotonin, patients with hematocrits of <20% or >55%, patients using other types of anticoagulation medications, and patients with Lupus Anticoagulant. Activated Clotting Time 271 s High 90 - 134 s [facility], [place] Comment on above: ACTBO Performed by [email or web address] ID: [id number] [place], [place] ACT testing is not intended for patients taking aprotonin, patients with hematocrits of <20% or >55%, patients using other types of anticoagulation medications, and patients with Lupus Anticoagulant. Basic Metabolic Panelon 02-0 Anion gap [Moles/Vol] 10 Normal [facility] Comment on above: Performed By: #### B MP3 #### [facility] [address] [place], [place] Calcium [Mass/Vol] 9.7 mg/dL Normal 8.4-10.4 [facility] Comment on above: Performed By: #### B MP3 #### [facility] [address] [place], [place] CO2 [Moles/Vol] 25 mmol/L Normal 22-30 [facility] Comment on above: Performed By: #### B MP3 #### [facility] [address] [place], [place] Glucose [Mass/Vol] 121 mg/dL High 70-100 [facility] Comment on above: Performed By: #### B MP3 #### [facility] [address] [place], [place] Urea nitrogen [Mass/Vol] 22 mg/dL High 7-20 [facility] Comment on above: Performed By: #### B MP3 #### [facility] [address] [place], [place] Creatinine [Mass/Vol] 1.30 mg/dL High 0.52-1.25 [facility] Comment on above: Performed By: #### B MP3 #### [facility] [address] [place], [place] GFR/1.73 sq M predicted among blacks MDRD (S/P/Bld) [Vol rate/Area] 61.4 mL/min/{1.73_m2} Normal >60 [facility] Comment on above: Performed By: #### B MP3 #### [facility] [address] [place], [place] GFR/1.73 sq M predicted among non-blacks MDRD (S/P/Bld) [Vol rate/Area] 52.9 mL/min/{1.73_m2} Abnormal >60 [facility] Comment on above: Result Comment: KDIG O guidelines provide the following GFR categories: Stage GFR(ml/min/1.73 m2) Terms G1 >=90 Normal or high G2 60-89 Mildly decreased* G3a 45-59 Mildly to moderately decreased G3b 30-44 Moderately to severely decreased G4 15-29 Severely decreased G5 <15 Kidney failure *Relative to young adult level. In the absence of evidence of kidney damage, neither GFR category G1 nor G2 fulfill the criteria for CKD. The CKD-EPI equation is validated in individuals 18 years of age and older. Currently the best equation for estimating glomerular filtration rate (GFR) from serum creatinine in children is the Bedside Lowe equation. It is less accurate in patients with extremes of muscle mass, restriction of dietary protein, ingestion of creatine, extra-renal metabolism of creatinine, or treatment with medications that affect renal tubular creatinine secretion. Performed By: #### B MP3 #### [address] [place], [place] Chloride [Moles/Vol] 107 mmol/L Normal 98-107 [facility] Comment on above: Performed By: #### B MP3 #### [address] Potassium [Moles/Vol] 3.6 mmol/L Normal 3.5-5.1 [place], [place] Comment on above: Performed By: #### B MP3 #### [address] Sodium [Moles/Vol] 142 mmol/L Normal 135-145 [place], [place] Comment on above: Performed By: #### B MP3 #### [address] Anion gap [Moles/Vol] 10 mmol/L [facility], [place] Calcium [Mass/Vol] 9.7 mg/dL 8.4 - 10. 4 mg/dL [place], [place] Chloride [Moles/Vol] 107 mmol/L 98 - 10 7 mmol/L [place], [place] CO2 [Moles/Vol] 25 mmol/L 22 - 30 mmol/L [place] Creatinine [Mass/Vol] 1.3 mg/dL High 0.52 - 1.25 mg/dL [place], [place] EGFR IF NonAfrican [place]raini 52.9 mL/min Abnormal >60 [place], [place] Comment on above: KDIGO guidelines pro vide the following GFR categories: Stage GFR(ml/min/1.73 m2) Terms G1 >=90 Normal or high G2 60-89 Mildly decreased* G3a 45-59 Mildly to moderately decreased G3b 30-44 Moderately to severely decreased G4 15-29 Severely decreased G5 <15 Kidney failure *Relative to young adult level. In the absence of evidence of kidney damage, neither GFR category G1 nor G2 fulfill the criteria for CKD. The CKD-EPI equation is validated in individuals 18 years of age and older. Currently the best equation for estimating glomerular filtration rate (GFR) from serum creatinine in children is the Bedside Lowe equation. It is less accurate in patients with extremes of muscle mass, restriction of dietary protein, ingestion of creatine, extra-renal metabolism of creatinine, or treatment with medications that affect renal tubular creatinine secretion. GFR/1.73 sq M predicted among blacks MDRD (S/P/Bld) [Vol rate/Area] 61.4 mL/min/{1.73_m2} >60 [place], [place] Glucose [Mass/Vol] 121 mg/dL High 70 - 100 mg/dL [place] Interpretation and review of laboratory results Abnormal [place] Urea nitrogen [Mass/Vol] 22 mg/dL High 7 - 20 mg/dL [place], [place] Test Performed by [facility], [address] [place] [id number] [place], [place] Diagnostic Cardiac Keg Raiser Procedureon 06-07-2020 [facility] -- CARDIAC CATHETERIZATION Patient: Bette Clements Procedure Date: 06/07/2020 : 1945 Age: 75 Gender: M Patient Type: Outpatient Procedure physician: Denis Rodriguez MD Fellow: Referring Physician: Christiano Steinberg William, MD Espinal, Eric, MD -- INDICATIONS: Atherosclerotic coronary artery disease. Previous stent. Positive stress echocardiogram. Calcified Ascending Aorta. [ [LEFT]] -- Procedures performed: # Right coronary angiography. # Left coronary angiography. # Percutaneous intervention on the 90% stenosis in the distal left circumflex. Balloon angioplasty. Balloon angioplasty. Stent placement. # Percutaneous intervention on the 80% stenosis in the left circumflex posterolateral extension. Stent placement. # Percutaneous intervention on the 70% stenosis in the mid left circumflex. Stent placement. # Percutaneous intervention on the 90% restenosis in the mid LAD. Balloon angioplasty. Stent placement. Stent placement. -- SUMMARY: 1. LAD: Prior intervention: stent in the mid LAD. Mid-vessel lesion: The diagnostic study demonstrated a diffuse, 90%restenosisin the previous stent. Stent placement was performed, with balloon angioplasty, resulting in an excellent angiographic appearance (see 4th lesion intervention). Following intervention, there is a residual 0% stenosis with ALYSIA grade 3 flow (brisk flow). 2. Left circumflex: Prior intervention: stent in the proximal left circumflex. The stented segment is patent. Distal vessel lesion: The diagnostic study demonstrated a tubular, 90%stenosis. Stent placement was performed, with balloon angioplasty, resulting in an excellent angiographic appearance (see 1st lesion intervention). Following intervention, there is a residual 0% stenosis with ALYSIA grade 3 flow (brisk flow). Mid-vessel lesion: The diagnostic study demonstrated a discrete, 70%stenosis. Stent placement was performed, resulting in an excellent angiographic appearance (see 3rd lesion intervention). Following intervention, there is a residual 0% stenosis with ALYSIA grade 3 flow (brisk flow). 3. LCx posterolateral extension: Lesion: The diagnostic study demonstrated a tubular, 80%stenosis. Stent placement was performed, resulting in an excellent angiographic appearance (see 2nd lesion intervention). Following intervention, there is a residual 0% stenosis with ALYSIA grade 3 flow (brisk flow). 4. Right coronary: Proximal vessel lesion: There is a 100% stenosis. IMPRESSIONS: 1. Succesful steting of the proximal, mid and distal CIRC ( 3.5 mm, 3.0 mm, and 2.75 mm) 2. Successful stenting of the mid LAD within a previous stent and beyond the stent ( 2.75 mm- 2.5 mm) 3. DECONTAMINATION TECHNICIAN of the RCA with recanalized proximal RCA with micro channels ( nuclear study suggest infarct in the inferior wall) RECOMMENDATIONS: 1. Elective AAA stent-graft. 2. Continue Plavix indefinitely ( ASA true allergy) -- -- LABS, PRIOR TESTS, PROCEDURES, and SURGERY: Catheterization with coronary intervention (08/03/2007). -- PROCEDURE IN DETAIL: Study status: Cardiac cath: elective. Consent: The risks, benefits, and alternatives to the procedure and sedation wer e explained to the patient and informed consent was obtained. Fluorosco py time: Fluoroscopy time: 24.4 min. Fluoroscopy dose: Fluoroscopy do se: 36.7 cGy. Location: Catheterization laboratory. PROCEDURE: 1. Initial setup. The patient was brought to the laboratory. A baseline ECG was recorded. Intravenous access was obtained. Surface ECG leads, blood pressure measurements, and pulse oximetric signals were monitored. 2. Skin preparation. The planned puncture sites were prepped and draped in the usual sterile manner. 3. Local anesthesia. 1% lidocaine was administered. 4. Right radial artery access. A 6Fr/10cm Glidesheath Slender sheath was advanced into the vessel. 5. Selective right coronary angiography. A 5Fr x 100cm JR4 catheter was advanced into the right coronary vessel ostium under fluoroscopic guidance. Contrast was injected. Images were obtained in multiple projections. 6. Selective left coronary angiography. A catheter was advanced into the left coronary vessel ostium under fluoroscopic guidance. Contrast was injected. Images were obtained in multiple projections. 7. A stent was placed in the stenosis in the mid circumflex. See detailed description below (1st lesion intervention). 8. A stent was placed in the stenosis in the distal circumflex. See detailed description below (2nd lesion intervention). 9. A stent was placed in the stenosis in the proximal circumflex. See detailed description below (3rd lesion intervention). 10. A stent was placed in the stenosis in the mid LAD. See detailed description below (4th lesion intervention). 11. ACT was 202 sec. 12. Right radial artery hemostasis. Mechanical compression was applied. 1st lesion intervention: Percutaneous intervention on the 90% stenosis in the distal left circumflex. 1. Guider placement: a 6Fr x 100cm Launcher EBU3.5 guiding catheter was placed. 2. A .014/190cm Hi-Torque Floppy II wire was placed across the lesion. 3. Balloon angioplasty. A 1.5 mm (D) x 15 mm (L), Mini Trek RX balloon was employed. The balloon was placed across the lesion and given two inflations with a maximum inflation pressure of 20 paula. 4. Balloon angioplasty. A 2.5 mm (D) x 15 mm (L), Trek RX balloon was employed. The balloon was placed across the lesion and given two inflations with a maximum inflation pressure of 12 paula. 5. Guider placement: a 6Fr GuideLiner guiding catheter was placed. 6. Stent placement. A 3 mm (D) x 18 mm (L), Xience Payal RX (drug eluting) stent was used. The stent was advanced across the lesion and deployed with a single inflation and a maximum pressure of 20 paula. 2nd lesion intervention: Percutaneous intervention on the 80% stenosis in the left circumflex posterolateral extension. Stent placement. A 2.75 mm (D) x 15 mm (L), X ience Payal RX (drug eluting) stent was used. The stent was advanced ac ross the lesion and deployed with a single inflation and a maximum press ure of 20 paula. 3rd lesion intervention: Percutaneous intervention on the 70% stenosis in the mid left circumflex. Stent placement. A 3.5 mm (D) x 8 mm (L), Xience Payal RX (drug eluting) stent was used. The stent was advanced across the lesion and deployed with a single inflation and a maximum pressure of 20 paula. 4th lesion intervention: Percutaneous intervention on the 90% restenosis in the mid LAD. 1. A .014/190cm Hi-Torque Floppy II wire was placed across the lesion. 2. Balloon angioplasty. A 2.5 mm (D) x 15 mm (L), Trek RX balloon was employed. The balloon was placed across the lesion and given two inflations with a maximum inflation pressure of 20 paula. 3. Stent placement. A 2.75 mm (D) x 33 mm (L), Xience Payal RX (drug eluting) stent was used. The stent was advanced across the lesion and deployed with a single inflation and a maximum pressure of 20 paula. 4. Stent placement. A 2.5 mm (D) x 12 mm (L), Xience Payal RX (drug eluting) stent was used. The stent was advanced across the lesion and deployed with a single inflation and a maximum pressure of 20 paula. STUDY COMPLETION: All catheters inserted during the procedure were removed. The patient tolerated the procedure well and was discharged fro m the lab. There were no complications. Administered medications: Hep reba, 5000units, IV, HEPARIN. Verapamil (Isoptin, Calan, Covera), 2.5mg , intra-arterially, VERAPAMIL. Nitroglycerin, 500mcg, into the coronary artery, NITROGLYCERIN (IC). Contrast: 1. ISOVUE 300MG/CC 217 ml (tot al dose). -- CORONARY ARTERIES: The coronary circulation is co-dominant. The left main bifurcates normally into the LAD and circumflex. LAD: Prior intervention: stent in the mid LAD. Mid-vessel lesion: The diagnostic study demonstrated a diffuse, 90%restenosisin the previous st ent. This lesion appears consistent with atherosclerotic disease. There is ALYSIA grade 3 flow (brisk flow) across the lesion. The distal vessel s upplies a moderate-sized vascular territory. Stent placement was perfor med, with balloon angioplasty, resulting in an excellent angiographic ap pearance (see 4th lesion intervention). Following intervention, there is a residual 0% stenosis with ALYSIA grade 3 flow (brisk flow). Left circumflex: Prior intervention: stent in the proximal left circumflex. The stented segment is patent. Distal vessel lesion: The di agnostic study demonstrated a tubular, 90%stenosis. This lesion appears irregularly contoured and consistent with atherosclerotic disease. There is ALYSIA grade 2 flow (partial perfusion) across the lesion. The distal vessel supplies a large vascular territory. Stent placement was perform ed, with balloon angioplasty, resulting in an excellent angiographic jamilah earance (see 1st lesion intervention). Following intervention, there is a residual 0% stenosis with ALYSIA grade 3 flow (brisk flow). Mid-vessel lesion: The diagnostic study demonstrated a discrete, 70%stenosis. This lesion appears eccentric and consistent with atherosclerotic disease. Th ere is ALYSIA grade 3 flow (brisk flow) across the lesion. The distal vess el supplies a large vascular territory. Stent placement was performed, resulting in an excellent angiographic appearance (see 3rd lesion interv ention). Following intervention, there is a residual 0% stenosis with TI MD grade 3 flow (brisk flow). LCx posterolateral extension: Lesion: The diagnostic study demonstrated a tubular, 80%stenosis. This lesion appears irregularly contoured and co nsistent with atherosclerotic disease. There is ALYSIA grade 3 flow (brisk flow) across the lesion. The distal vessel supplies a moderate-sized va scular territory. Stent placement was performed, resulting in an excell ent angiographic appearance (see 2nd lesion intervention). Following int ervention, there is a residual 0% stenosis with ALYSIA grade 3 flow (brisk flow). Right coronary: Proximal vessel lesion: There is a 100% stenosis. HEMODYNAMICS: + ---+ --+ +Stage description +Condition1:Room Air -+ + ---+ --+ +Arterial pressure s/d (m)+120/73 (95) + + ---+ --+ Prepared and electronically signed by Denis Rodriguez MD 06/07/2020 11:22 [facility], [facility] Incoming Cardiology Results From Merge/Halinaany - 06/07/2020 11:22 AM EST [facility] -- CARDIAC CATHETERIZATION Patient: Bette Clements Procedure Date: 06/07/2020 : 1945 Age: 75 Gender: M Patient Type: Outpatient Procedure physician: Denis Rodriguez MD Fellow: Referring Physician: Christiano Steinberg William, MD Espinal, Eric, MD -- INDICATIONS: Atherosclerotic coronary artery disease. Previous stent. Positive stress echocardiogram. Calcified Ascending Aorta. [ [LEFT]] -- Procedures performed: # Right coronary angiography. # Left coronary angiography. # Percutaneous intervention on the 90% stenosis in the distal left circumflex. Balloon angioplasty. Balloon angioplasty. Stent placement. # Percutaneous intervention on the 80% stenosis in the left circumflex posterolateral extension. Stent placement. # Percutaneous intervention on the 70% stenosis in the mid left circumflex. Stent placement. # Percutaneous intervention on the 90% restenosis in the mid LAD. Balloon angioplasty. Stent placement. Stent placement. -- SUMMARY: 1. LAD: Prior intervention: stent in the mid LAD. Mid-vessel lesion: The diagnostic study demonstrated a diffuse, 90%restenosisin the previous stent. Stent placement was performed, with balloon angioplasty, resulting in an excellent angiographic appearance (see 4th lesion intervention). Following intervention, there is a residual 0% stenosis with ALYSIA grade 3 flow (brisk flow). 2. Left circumflex: Prior intervention: stent in the proximal left circumflex. The stented segment is patent. Distal vessel lesion: The diagnostic study demonstrated a tubular, 90%stenosis. Stent placement was performed, with balloon angioplasty, resulting in an excellent angiographic appearance (see 1st lesion intervention). Following intervention, there is a residual 0% stenosis with ALYSIA grade 3 flow (brisk flow). Mid-vessel lesion: The diagnostic study demonstrated a discrete, 70%stenosis. Stent placement was performed, resulting in an excellent angiographic appearance (see 3rd lesion intervention). Following intervention, there is a residual 0% stenosis with ALYSIA grade 3 flow (brisk flow). 3. LCx posterolateral extension: Lesion: The diagnostic study demonstrated a tubular, 80%stenosis. Stent placement was performed, resulting in an excellent angiographic appearance (see 2nd lesion intervention). Following intervention, there is a residual 0% stenosis with ALYSIA grade 3 flow (brisk flow). 4. Right coronary: Proximal vessel lesion: There is a 100% stenosis. IMPRESSIONS: 1. Succesful steting of the proximal, mid and distal CIRC ( 3.5 mm, 3.0 mm, and 2.75 mm) 2. Successful stenting of the mid LAD within a previous stent and beyond the stent ( 2.75 mm- 2.5 mm) 3. DECONTAMINATION TECHNICIAN of the RCA with recanalized proximal RCA with micro channels ( nuclear study suggest infarct in the inferior wall) RECOMMENDATIONS: 1. Elective AAA stent-graft. 2. Continue Plavix indefinitely ( ASA true allergy) -- -- LABS, PRIOR TESTS, PROCEDURES, and SURGERY: Catheterization with coronary intervention (08/03/2007). -- PROCEDURE IN DETAIL: Study status: Cardiac cath: elective. Consent: The risks, benefits, and alternatives to the procedure and sedation wer e explained to the patient and informed consent was obtained. Fluorosco py time: Fluoroscopy time: 24.4 min. Fluoroscopy dose: Fluoroscopy do se: 36.7 cGy. Location: Catheterization laboratory. PROCEDURE: 1. Initial setup. The patient was brought to the laboratory. A baseline ECG was recorded. Intravenous access was obtained. Surface ECG leads, blood pressure measurements, and pulse oximetric signals were monitored. 2. Skin preparation. The planned puncture sites were prepped and draped in the usual sterile manner. 3. Local anesthesia. 1% lidocaine was administered. 4. Right radial artery access. A 6Fr/10cm Glidesheath Slender sheath was advanced into the vessel. 5. Selective right coronary angiography. A 5Fr x 100cm JR4 catheter was advanced into the right coronary vessel ostium under fluoroscopic guidance. Contrast was injected. Images were obtained in multiple projections. 6. Selective left coronary angiography. A catheter was advanced into the left coronary vessel ostium under fluoroscopic guidance. Contrast was injected. Images were obtained in multiple projections. 7. A stent was placed in the stenosis in the mid circumflex. See detailed description below (1st lesion intervention). 8. A stent was placed in the stenosis in the distal circumflex. See detailed description below (2nd lesion intervention). 9. A stent was placed in the stenosis in the proximal circumflex. See detailed description below (3rd lesion intervention). 10. A stent was placed in the stenosis in the mid LAD. See detailed description below (4th lesion intervention). 11. ACT was 202 sec. 12. Right radial artery hemostasis. Mechanical compression was applied. 1st lesion intervention: Percutaneous intervention on the 90% stenosis in the distal left circumflex. 1. Guider placement: a 6Fr x 100cm Launcher EBU3.5 guiding catheter was placed. 2. A .014/190cm Hi-Torque Floppy II wire was placed across the lesion. 3. Balloon angioplasty. A 1.5 mm (D) x 15 mm (L), Mini Trek RX balloon was employed. The balloon was placed across the lesion and given two inflations with a maximum inflation pressure of 20 paula. 4. Balloon angioplasty. A 2.5 mm (D) x 15 mm (L), Trek RX balloon was employed. The balloon was placed across the lesion and given two inflations with a maximum inflation pressure of 12 paula. 5. Guider placement: a 6Fr GuideLiner guiding catheter was placed. 6. Stent placement. A 3 mm (D) x 18 mm (L), Xience Payal RX (drug eluting) stent was used. The stent was advanced across the lesion and deployed with a single inflation and a maximum pressure of 20 paula. 2nd lesion intervention: Percutaneous intervention on the 80% stenosis in the left circumflex posterolateral extension. Stent placement. A 2.75 mm (D) x 15 mm (L), X ience Payal RX (drug eluting) stent was used. The stent was advanced ac ross the lesion and deployed with a single inflation and a maximum press ure of 20 paula. 3rd lesion intervention: Percutaneous intervention on the 70% stenosis in the mid left circumflex. Stent placement. A 3.5 mm (D) x 8 mm (L), Xience Payal RX (drug eluting) stent was used. The stent was advanced across the lesion and deployed with a single inflation and a maximum pressure of 20 paula. 4th lesion intervention: Percutaneous intervention on the 90% restenosis in the mid LAD. 1. A .014/190cm Hi-Torque Floppy II wire was placed across the lesion. 2. Balloon angioplasty. A 2.5 mm (D) x 15 mm (L), Trek RX balloon was employed. The balloon was placed across the lesion and given two inflations with a maximum inflation pressure of 20 paula. 3. Stent placement. A 2.75 mm (D) x 33 mm (L), Xience Payal RX (drug eluting) stent was used. The stent was advanced across the lesion and deployed with a single inflation and a maximum pressure of 20 paula. 4. Stent placement. A 2.5 mm (D) x 12 mm (L), Xience Payal RX (drug eluting) stent was used. The stent was advanced across the lesion and deployed with a single inflation and a maximum pressure of 20 paula. STUDY COMPLETION: All catheters inserted during the procedure were removed. The patient tolerated the procedure well and was discharged fro m the lab. There were no complications. Administered medications: Hep reba, 5000units, IV, HEPARIN. Verapamil (Isoptin, Calan, Covera), 2.5mg , intra-arterially, VERAPAMIL. Nitroglycerin, 500mcg, into the coronary artery, NITROGLYCERIN (IC). Contrast: 1. ISOVUE 300MG/CC 217 ml (tot al dose). -- CORONARY ARTERIES: The coronary circulation is co-dominant. The left main bifurcates normally into the LAD and circumflex. LAD: Prior intervention: stent in the mid LAD. Mid-vessel lesion: The diagnostic study demonstrated a diffuse, 90%restenosisin the previous st ent. This lesion appears consistent with atherosclerotic disease. There is ALYSIA grade 3 flow (brisk flow) across the lesion. The distal vessel s upplies a moderate-sized vascular territory. Stent placement was perfor med, with balloon angioplasty, resulting in an excellent angiographic ap pearance (see 4th lesion intervention). Following intervention, there is a residual 0% stenosis with ALYSIA grade 3 flow (brisk flow). Left circumflex: Prior intervention: stent in the proximal left circumflex. The stented segment is patent. Distal vessel lesion: The di agnostic study demonstrated a tubular, 90%stenosis. This lesion appears irregularly contoured and consistent with atherosclerotic disease. There is ALYSIA grade 2 flow (partial perfusion) across the lesion. The distal vessel supplies a large vascular territory. Stent placement was perform ed, with balloon angioplasty, resulting in an excellent angiographic jamilah earance (see 1st lesion intervention). Following intervention, there is a residual 0% stenosis with ALYSIA grade 3 flow (brisk flow). Mid-vessel lesion: The diagnostic study demonstrated a discrete, 70%stenosis. This lesion appears eccentric and consistent with atherosclerotic disease. Th ere is ALYSIA grade 3 flow (brisk flow) across the lesion. The distal vess el supplies a large vascular territory. Stent placement was performed, resulting in an excellent angiographic appearance (see 3rd lesion interv ention). Following intervention, there is a residual 0% stenosis with TI MD grade 3 flow (brisk flow). LCx posterolateral extension: Lesion: The diagnostic study demonstrated a tubular, 80%stenosis. This lesion appears irregularly contoured and co nsistent with atherosclerotic disease. There is ALYSIA grade 3 flow (brisk flow) across the lesion. The distal vessel supplies a moderate-sized va scular territory. Stent placement was performed, resulting in an excell ent angiographic appearance (see 2nd lesion intervention). Following int ervention, there is a residual 0% stenosis with ALYSIA grade 3 flow (brisk flow). Right coronary: Proximal vessel lesion: There is a 100% stenosis. HEMODYNAMICS: + ---+ --+ +Stage description +Condition1:Room Air -+ + ---+ --+ +Arterial pressure s/d (m)+120/73 (95) + + ---+ --+ Prepared and electronically signed by Denis Rodriguez MD 06/07/2020 11:22 [place], [place] Otheron 06-07-2020 Interpretation and review of laboratory results Abnormal [place], [place] Test Performed by [facility], [address] [place] [id number] [place], [place] CNTHERAPYon 06-20-2019 CNTHERAPY OT/PT/Speech Visit ([facility]) BETTE CLEMENTS ([id number]) 1945 M Date Time Provider Department 06/20/19 1:45 PM KIKI MCKEE (OT[facility] Date Time Provider Department Center 06/20/2019 1:45 PM [id number] MCKEE *[facility] Reason for Visit: OT Discharge [750] Primary Visit Diagnosis:Primary osteoarthritis of first carpometacarpal joint of left hand [M18.12] Allergies As of Date: 06/20/2019 Noted Allergy Reaction ALCOHOL 06/04/2008 4 - Hives Comments: Rubbing alcohol ASPIRIN 01/06/2005 5 - Intolerance Comments: WHEEZE AUGMENTIN (AMOXICILLIN-POT CLAVUL*01/06/2005 5 - Intolerance Comments: tingling all over DARVON (PROPOXYPHENE HCL) 01/06/2005 5 - Intolerance DOXYCYCLINE 07/13/2006 2 - Rash 9 - Itching Environmental allergies [Other] 02/22/2006 Comments: Cats, molds LIPITOR (ATORVASTATIN) 01/06/2005 5 - Intolerance NAPROSYN (NAPROXEN) 01/06/2005 5 - Intolerance PAXIL (PAROXETINE HCL) 01/06/2005 5 - Intolerance SPIRIVA WITH HANDIHALER (TIOTROPI*01/06/2005 5 - Intolerance Comments: IRRITABLE,DEPRESSED tape [Other] 02/17/2008 TOPROL XL (METOPROLOL) 01/06/2005 2 - Rash Comments: RASH ZOCOR (SIMVASTATIN) 01/06/2005 5 - Intolerance ZOLOFT (SERTRALINE HCL) 01/06/2005 5 - Intolerance Date Reviewed: 06/01/2019 Reviewed by: Barney Saldivar - Fully Assessed Prescriptions as of 06/20/2019 Sig: HYDROCODONE 5 MG-ACETAMINOPHE* take 1 tablet by mouth every * Patient not taking: Reported on 06/19/2019 VERAPAMIL ER (SR) 120 MG TABL* once daily. LOPERAMIDE 2 MG TABLET Take 2 mg by mouth as needed * BUDESONIDE 0.5 MG/2 ML SUSPEN* Use 0.5 mg via nebulizer twic* PERFOROMIST 20 MCG/2 ML SOLUT* Use 20 mcg via nebulizer ever* TAMSULOSIN 0.4 MG CAPSULE Take 0.4 mg by mouth once glenis* LORAZEPAM 0.5 MG TABLET Take three tablets by mouth a* CLOPIDOGREL 75 MG TABLET Take 1 tablet by mouth once d* IPRATROPIUM 20 MCG-ALBUTEROL * Inhale 1 Puff as instructed e* NOEJYWMWFIL-[id number]-Y IT C-M* Take 2 capsules by mouth once* PIROXICAM 10 MG CAPSULE Take 1 capsule by mouth once * NITROGLYCERIN 0.4 MG SUBLINGU* Dissolve 1 tablet under the t* Patient not taking: Reported on 05/09/2019 GARLIC CAPSULE Take one(1) capsule daily. OTC NUTRITIONAL SUPPLEMENT red yeast rice 1200 mg daily Progress Notes: Kikidean Mckee OT/L 06/20/2019 2:09 PM Signed Episode Visit Count: 5 Therapist That Will Oversee The Plan Of Care: Venu Swanson Start of Care Date: 04/07/19 Onset Date: 04/07/19 Plan of Care Certification Date: 05/09/19 Patient Identified by Name and Date of : Yes REHABILITATION AND SPORTS THERAPY OCCUPATIONAL THERAPY DISCONTINUANCE OF CARE PLAN OF CARE UPDATE: Assessment: Bette Clements is discontinued from Occupational Therapy services due to goal achievement and maximal benefit.. Patient was seen for 5 visits from Start of Care Date: 04/07/19 to 06/20/2019 and treatment included: Therapeutic exercise, Self-nursing home management, Modalities and Custom orthosis fabrication. Patient will report a good understanding of diagnosis and OT recommendations for progression of program MET Patient will demonstrate independence with ongoing home exercise program MET Patient will increase AROM of left wrist and thumb to WNL in order to be able to perform all prehension needed for independent performance of fine motor activities MET Patient will independently demonstrate correct application of wrist/thumb orthosis and verbalize understanding of proper wear/care by end of session.MET Patient will report a good understanding of edema control techniques MET Patient will independently demonstrate scar massage/management in order to decrease scar adherence by discharge MET SUBJECTIVE: s/p CMC arthroplasty Pt reports he got injections in his hand and it feels much better, no longer using splint or having any issues with use of hand Pain: Pain Pain Level: 0 Pain Location: Wrist - Left;Thumb - Left PROMIS Scales T-scores: mean of general population = 50. 5 points is clinically meaningfully difference Percentiles provide an indication of how the patient's score ranks in relation to the general population. Higher percentile rankings indicate better function/quality of life. 50th percentile is the average of the general population and indicates half of respondents had a worse score. T-scores: mean of general population = 50. 5 points is clinically meaningfully difference Percentiles provide an indication of how the patient's score ranks in relation to the general population. Higher percentile rankings indicate better function/quality of life. 50th percentile is the average of the general population and indicates half of respondents had a worse score. OBJECTIVE MEASURES WITH LEVEL OF FUNCTION: Hand Wrist AROM: Left Limitation Thumb AROM: Left Limitation Strength: Highway Inspector Position 2;Pinch Meter Hand Strength L Highway Inspector Position 2 (lbs): 60 lbs L Lateral Pinch (lbs): 11 lbs L Tripod/ 3 Jaw Davion (lbs): 12.5 lbs L Tip Pinch (lbs): 10 lbs UE AROM L Wrist Extension: 65 Degrees L Wrist Flexion: 60 Degrees L Wrist Radial Deviation: 25 Degrees L Wrist Ulnar Deviation: 30 Degrees Hand AROM L Thumb MP Flexion : 44 Degrees L Thumb IP Flexion : 62 Degrees L Thumb Radial Abduction: 80 Degrees L Thumb Palmar Abduction: 65 Degrees TREATMENT: Therapeutic Exercise: 1: wrist flex/ext deviation 2: thumb flex/ext rad and palmar abduction and opposition 3: with medium soft putty bariatric program coordinator digit ext roll digit flexion and tripod pinch and lateral pinch 4: educated pt oin continued joint protection for thumb as well has hand Skilled Intervention: Patient was educated in proper exercise technique and purpose for exercises. Skilled judgment was provided in selection of appropriate interventions. Modalities: Fluidotherapy Body Region Treated - Fluidotherapy: left hand Patient Position: seated Temperature: 106 Minute(s): 10 Activity 1: AROM Wrist and thumb See flowsheet for details regarding treatment. Skilled Intervention: Proper administration and selection of modality based on clinical presentation, deficits, and needs. Patient response monitored throughout treatment. Billing: [place]: Therapeutic Exercise (39984): 1:1 time:30 minutes (2 units: 23-37 mins) Fluidotherapy (72213) 1 unit(s) Total time: 40 minutes Kiki Mckee OT/ELVA Normal [facility] PROGRESSon 06-20-2019 PROGRESS HNO ID: [id number] Author: Kiki Mckee Service: ? Author Type: Occupational Therapist Type: Progress Notes Filed: 06/20/2019 2:09 PM Note Text: Episode Visit Count: 5 Therapist That Will Oversee The Plan Of Care: Venu Swanson Start of Care Date: 04/07/19 Onset Date: 04/07/19 Plan of Care Certification Date: 05/09/19 Patient Identified by Name and Date of : Yes REHABILITATION AND SPORTS THERAPY OCCUPATIONAL THERAPY DISCONTINUANCE OF CARE PLAN OF CARE UPDATE: Assessment: Bette Clements is discontinued from Occupational Therapy services due to goal achievement and maximal benefit.. Patient was seen for 5 visits from Start of Care Date: 04/07/19 to 06/20/2019 and treatment included: Therapeutic exercise, Self-nursing home management, Modalities and Custom orthosis fabrication. Patient will report a good understanding of diagnosis and OT recommendations for progression of program MET Patient will demonstrate independence with ongoing home exercise program MET Patient will increase AROM of left wrist and thumb to WNL in order to be able to perform all prehension needed for independent performance of fine motor activities MET Patient will independently demonstrate correct application of wrist/thumb orthosis and verbalize understanding of proper wear/care by end of session.MET Patient will report a good understanding of edema control techniques MET Patient will independently demonstrate scar massage/management in order to decrease scar adherence by discharge MET SUBJECTIVE: s/p CMC arthroplasty Pt reports he got injections in his hand and it feels much better, no longer using splint or having any issues with use of hand Pain: Pain Pain Level: 0 Pain Location: Wrist - Left;Thumb - Left PROMIS Scales T-scores: mean of general population = 50. 5 points is clinically meaningfully difference Percentiles provide an indication of how the patient's score ranks in relation to the general population. Higher percentile rankings indicate better function/quality of life. 50th percentile is the average of the general population and indicates half of respondents had a worse score. T-scores: mean of general population = 50. 5 points is clinically meaningfully difference Percentiles provide an indication of how the patient's score ranks in relation to the general population. Higher percentile rankings indicate better function/quality of life. 50th percentile is the average of the general population and indicates half of respondents had a worse score. OBJECTIVE MEASURES WITH LEVEL OF FUNCTION: Hand Wrist AROM: Left Limitation Thumb AROM: Left Limitation Strength: Highway Inspector Position 2;Pinch Meter Hand Strength L Highway Inspector Position 2 (lbs): 60 lbs L Lateral Pinch (lbs): 11 lbs L Tripod/ 3 Jaw Davion (lbs): 12.5 lbs L Tip Pinch (lbs): 10 lbs UE AROM L Wrist Extension: 65 Degrees L Wrist Flexion: 60 Degrees L Wrist Radial Deviation: 25 Degrees L Wrist Ulnar Deviation: 30 Degrees Hand AROM L Thumb MP Flexion : 44 Degrees L Thumb IP Flexion : 62 Degrees L Thumb Radial Abduction: 80 Degrees L Thumb Palmar Abduction: 65 Degrees TREATMENT: Therapeutic Exercise: 1: wrist flex/ext deviation 2: thumb flex/ext rad and palmar abduction and opposition 3: with medium soft putty bariatric program coordinator digit ext roll digit flexion and tripod pinch and lateral pinch 4: educated pt oin continued joint protection for thumb as well has hand Skilled Intervention: Patient was educated in proper exercise technique and purpose for exercises. Skilled judgment was provided in selection of appropriate interventions. Modalities: Fluidotherapy Body Region Treated - Fluidotherapy: left hand Patient Position: seated Temperature: 106 Minute(s): 10 Activity 1: AROM Wrist and thumb See flowsheet for details regarding treatment. Skilled Intervention: Proper administration and selection of modality based on clinical presentation, deficits, and needs. Patient response monitored throughout treatment. Billing: [place]: Therapeutic Exercise ([id number]): 1:1 time:30 minutes (2 units: 23-37 mins) Fluidotherapy ([id number]) 1 unit(s) Total time: 40 minutes Kiki Mckee OT/[facility] CNTHERAPYon 05-30-2019 CNTHERAPY OT[facility]PT[facility]ech [facility] BETTE CLEMENTS ([id number]) 1945 M Date Time Provider Department 05/30/19 1:45 PM KIKI MCKEE () [facility] Date Time Provider Department Center 05/30/2019 1:45 PM [id number] MCKEE [facility] [504] Primary Visit Diagnosis:Primary osteoarthritis of first carpometacarpal joint of left hand [M18.12] Allergies As of Date: 05/30/2019 Noted Allergy Reaction ALCOHOL 06/04/2008 4 - Hives Comments: Rubbing alcohol ASPIRIN 01/06/2005 5 - Intolerance Comments: WHEEZE AUGMENTIN (AMOXICILLIN-POT CLAVUL*01/06/2005 5 - Intolerance Comments: tingling all over DARVON (PROPOXYPHENE HCL) 01/06/2005 5 - Intolerance DOXYCYCLINE 07/13/2006 2 - Rash 9 - Itching Environmental allergies [Other] 02/22/2006 Comments: Cats, molds LIPITOR (ATORVASTATIN) 01/06/2005 5 - Intolerance NAPROSYN (NAPROXEN) 01/06/2005 5 - Intolerance PAXIL (PAROXETINE HCL) 01/06/2005 5 - Intolerance SPIRIVA WITH HANDIHALER (TIOTROPI*01/06/2005 5 - Intolerance Comments: IRRITABLE,DEPRESSED tape [Other] 02/17/2008 TOPROL XL (METOPROLOL) 01/06/2005 2 - Rash Comments: RASH ZOCOR (SIMVASTATIN) 01/06/2005 5 - Intolerance ZOLOFT (SERTRALINE HCL) 01/06/2005 5 - Intolerance Date Reviewed: 05/13/2019 Reviewed by: Barney Saldivar - Fully Assessed Prescriptions as of 05/30/2019 Sig: VERAPAMIL ER (SR) 120 MG TABL* once daily. LOPERAMIDE 2 MG TABLET Take 2 mg by mouth as needed * BUDESONIDE 0.5 MG/2 ML SUSPEN* Use 0.5 mg via nebulizer twic* PERFOROMIST 20 MCG/2 ML SOLUT* Use 20 mcg via nebulizer ever* TAMSULOSIN 0.4 MG CAPSULE Take 0.4 mg by mouth once glenis* LORAZEPAM 0.5 MG TABLET Take three tablets by mouth a* CLOPIDOGREL 75 MG TABLET Take 1 tablet by mouth once d* IPRATROPIUM 20 MCG-ALBUTEROL * Inhale 1 Puff as instructed e* [id number] IT C-M* Take 2 capsules by mouth once* PIROXICAM 10 MG CAPSULE Take 1 capsule by mouth once * NITROGLYCERIN 0.4 MG SUBLINGU* Dissolve 1 tablet under the t* Patient not taking: Reported on 05/09/2019 GARLIC CAPSULE Take one(1) capsule daily. OTC NUTRITIONAL SUPPLEMENT red yeast rice 1200 mg daily Progress Notes: Kiki Mckee OT/Mandeep 05/30/2019 3:20 PM Signed Episode Visit Count: 4 Therapist That Will Oversee The Plan Of Care: Venu Swanson Start of Care Date: 04/07/19 Onset Date: 04/07/19 Plan of Care Certification Date: 05/09/19 Patient Identified by Name and Date of : Yes REHABILITATION AND SPORTS THERAPY OCCUPATIONAL THERAPY TREATMENT NOTE ASSESSMENT: Bette Clements demonstrated difficulty with strength and stiffness. The patient will continue to benefit from continued skilled occupational therapy for exercises modalities and education PLAN FOR NEXT VISIT: progress report continue with fluido and BTE SUBJECTIVE: Pt complaining from stiffness today and some discomfort on ulnar side of hand Pain: Pain Pain Level: 2 Pain Location: Wrist - Left;Thumb - Left OBJECTIVE MEASURES WITH LEVEL OF FUNCTION: Hand Strength: Highway Inspector Position 2;Pinch Meter Hand Strength R Highway Inspector Position 2 (lbs): [address] Inspector Position 2 (lbs): 55 lbs R Lateral Pinch (lbs): 18 lbs R Tripod/ 3 Jaw Davion (lbs): 23 lbs R Tip Pinch (lbs): 17.5 lbs L Lateral Pinch (lbs): 10 lbs L Tripod/ 3 Jaw Davion (lbs): 8 lbs L Tip Pinch (lbs): 9 lbs TREATMENT: Therapeutic Exercise: 1: wrist flex/ext deviation 2: thumb flex/ext rad and palmar abduction and opposition 3: pt weaning out of splint 4: scar massage 5: BTE (see record of treatment in scanned medical records) Skilled Intervention: Patient was educated in proper exercise technique and purpose for exercises. Skilled judgment was provided in selection of appropriate interventions. Modalities: Fluidotherapy Body Region Treated - Fluidotherapy: left hand Patient Position: seated Temperature: 110 Minute(s): 10 Activity 1: AROM Wrist and thumb See flowsheet for details regarding treatment. Skilled Intervention: Proper administration and selection of modality based on clinical presentation, deficits, and needs. Patient response monitored throughout treatment. Billing: Mildred: Therapeutic Exercise ([id number]): 1:1 time:35 minutes (2 units: 23-37 mins) Fluidotherapy ([id number]) 1 unit(s) Total time: 45 minutes Kiki Mckee OT/ELVA [facility] PROGRESSon 05-30-2019 PROGRESS HNO ID: [id number] Author: Kiki (Alisha Mckee Service: ? Author Type: Occupational Therapist Type: Progress Notes Filed: 05/30/2019 3:20 PM Note Text: Episode Visit Count: 4 Therapist That Will Oversee The Plan Of Care: Venu Swanson Start of Care Date: 04/07/19 Onset Date: 04/07/19 Plan of Care Certification Date: 05/09/19 Patient Identified by Name and Date of : Yes REHABILITATION AND SPORTS THERAPY OCCUPATIONAL THERAPY TREATMENT NOTE ASSESSMENT: Bette Clements demonstrated difficulty with strength and stiffness. The patient will continue to benefit from continued skilled occupational therapy for exercises modalities and education PLAN FOR NEXT VISIT: progress report continue with fluido and BTE SUBJECTIVE: Pt complaining from stiffness today and some discomfort on ulnar side of hand Pain: Pain Pain Level: 2 Pain Location: Wrist - Left;Thumb - Left OBJECTIVE MEASURES WITH LEVEL OF FUNCTION: Hand Strength: Highway Inspector Position 2;Pinch Meter Hand Strength R Highway Inspector Position 2 (lbs): [address] Inspector Position 2 (lbs): 55 lbs R Lateral Pinch (lbs): 18 lbs R Tripod/ 3 Jaw Davion (lbs): 23 lbs R Tip Pinch (lbs): 17.5 lbs L Lateral Pinch (lbs): 10 lbs L Tripod/ 3 Jaw Davion (lbs): 8 lbs L Tip Pinch (lbs): 9 lbs TREATMENT: Therapeutic Exercise: 1: wrist flex/ext deviation 2: thumb flex/ext rad and palmar abduction and opposition 3: pt weaning out of splint 4: scar massage 5: BTE (see record of treatment in scanned medical records) Skilled Intervention: Patient was educated in proper exercise technique and purpose for exercises. Skilled judgment was provided in selection of appropriate interventions. Modalities: Fluidotherapy Body Region Treated - Fluidotherapy: left hand Patient Position: seated Temperature: 110 Minute(s): 10 Activity 1: AROM Wrist and thumb See flowsheet for details regarding treatment. Skilled Intervention: Proper administration and selection of modality based on clinical presentation, deficits, and needs. Patient response monitored throughout treatment. Billing: Melendrez: Therapeutic Exercise ([id number]): 1:1 time:35 minutes (2 units: 23-37 mins) Fluidotherapy (74860) 1 unit(s) Total time: 45 minutes [facility]-2019 CNTHERAPY OT/PT/Speech Visit ([facility]) BETTE CLEMENTS ([id number]) 1945 M Date Time Provider Department 05/23/19 1:45 PM [facility] Date Time Provider Department Center 05/23/2019 1:45 PM [id number]: [facility] [504] Primary Visit Diagnosis:Primary osteoarthritis of first carpometacarpal joint of left hand [M18.12] Allergies As of Date: 05/23/2019 Noted Allergy Reaction ALCOHOL 06/04/2008 4 - Hives Comments: Rubbing alcohol ASPIRIN 01/06/2005 5 - Intolerance Comments: WHEEZE AUGMENTIN (AMOXICILLIN-POT CLAVUL*01/06/2005 5 - Intolerance Comments: tingling all over DARVON (PROPOXYPHENE HCL) 01/06/2005 5 - Intolerance DOXYCYCLINE 07/13/2006 2 - Rash 9 - Itching Environmental allergies [Other] 02/22/2006 Comments: Cats, molds LIPITOR (ATORVASTATIN) 01/06/2005 5 - Intolerance NAPROSYN (NAPROXEN) 01/06/2005 5 - Intolerance PAXIL (PAROXETINE HCL) 01/06/2005 5 - Intolerance SPIRIVA WITH HANDIHALER (TIOTROPI*01/06/2005 5 - Intolerance Comments: IRRITABLE,DEPRESSED tape [Other] 02/17/2008 TOPROL XL (METOPROLOL) 01/06/2005 2 - Rash Comments: RASH ZOCOR (SIMVASTATIN) 01/06/2005 5 - Intolerance ZOLOFT (SERTRALINE HCL) 01/06/2005 5 - Intolerance Date Reviewed: 05/13/2019 Reviewed by: Barney Saldivar - Fully Assessed Prescriptions as of 05/23/2019 Sig: VERAPAMIL ER (SR) 120 MG TABL* once daily. LOPERAMIDE 2 MG TABLET Take 2 mg by mouth as needed * BUDESONIDE 0.5 MG/2 ML SUSPEN* Use 0.5 mg via nebulizer twic* PERFOROMIST 20 MCG/2 ML SOLUT* Use 20 mcg via nebulizer ever* TAMSULOSIN 0.4 MG CAPSULE Take 0.4 mg by mouth once glenis* LORAZEPAM 0.5 MG TABLET Take three tablets by mouth a* CLOPIDOGREL 75 MG TABLET Take 1 tablet by mouth once d* IPRATROPIUM 20 MCG-ALBUTEROL * Inhale 1 Puff as instructed e* [id number] IT C-M* Take 2 capsules by mouth once* PIROXICAM 10 MG CAPSULE Take 1 capsule by mouth once * NITROGLYCERIN 0.4 MG SUBLINGU* Dissolve 1 tablet under the t* Patient not taking: Reported on 05/09/2019 GARLIC CAPSULE Take one(1) capsule daily. OTC NUTRITIONAL SUPPLEMENT red yeast rice 1200 mg daily Progress Notes: Kiki Mckee OT/Mandeep 05/23/2019 2:05 PM Signed Episode Visit Count: 3 Therapist That Will Oversee The Plan Of Care: Venu Swanson Start of Care Date: 04/07/19 Onset Date: 04/07/19 Plan of Care Certification Date: 05/09/19 Patient Identified by Name and Date of : Yes REHABILITATION AND SPORTS THERAPY OCCUPATIONAL THERAPY TREATMENT NOTE ASSESSMENT: Bette Clements demonstrated difficulty with strength. The patient will continue to benefit from continued skilled occupational therapy for education exercises and modalities PLAN FOR NEXT VISIT: reassess strength progress as able SUBJECTIVE: Pt reports hand is improving was able to open breathing treatment for the first time Pain: Pain Pain Level: 2 OBJECTIVE MEASURES WITH LEVEL OF FUNCTION: TREATMENT: Therapeutic Exercise: 1: wrist flex/ext deviation 2: thumb flex/ext rad and palmar abduction and opposition 3: pt weaning out of splint 4: scar massage 5: soft putty bariatric program coordinator digit extension roll digit flexion and tripod pinch Skilled Intervention: Patient was educated in proper exercise technique and purpose for exercises. Skilled judgment was provided in selection of appropriate interventions. Provided written instruction for home exercise program to facilitate proper performance and compliance. Modalities: Fluidotherapy Body Region Treated - Fluidotherapy: left hand Patient Position: seated Temperature: 110 Minute(s): 10 Activity 1: AROM Wrist and thumb See flowsheet for details regarding treatment. Skilled Intervention: Proper administration and selection of modality based on clinical presentation, deficits, and needs. Patient response monitored throughout treatment. Billing: Mildred: Therapeutic Exercise ([id number]): 1:1 time:30 minutes (2 units: 23-37 mins) Fluidotherapy (18458) 1 unit(s) Total time: 40 minutes Kiki Mckee OT/ELVA Annotated image of OT HAND THERAPUTTY EXERCISES PG 1 last updated by Kiki Mckee on 05/23/2019 1:47 PM Annotated image of OT HAND THERAPUTTY EXERCISES PG 2 last updated by Kiki Mckee on 05/23/2019 1:47 PM [facility] PROGRESSon 05-23-2019 PROGRESS HNO ID: [id number] Author: Kiki Mckee Service: ? Author Type: Occupational Therapist Type: Progress Notes Filed: 05/23/2019 2:05 PM Note Text: Episode Visit Count: 3 Therapist That Will Oversee The Plan Of Care: Venu Swanson Start of Care Date: 04/07/19 Onset Date: 04/07/19 Plan of Care Certification Date: 05/09/19 Patient Identified by Name and Date of : Yes REHABILITATION AND SPORTS THERAPY OCCUPATIONAL THERAPY TREATMENT NOTE ASSESSMENT: Bette Clements demonstrated difficulty with strength. The patient will continue to benefit from continued skilled occupational therapy for education exercises and modalities PLAN FOR NEXT VISIT: reassess strength progress as able SUBJECTIVE: Pt reports hand is improving was able to open breathing treatment for the first time Pain: Pain Pain Level: 2 OBJECTIVE MEASURES WITH LEVEL OF FUNCTION: TREATMENT: Therapeutic Exercise: 1: wrist flex/ext deviation 2: thumb flex/ext rad and palmar abduction and opposition 3: pt weaning out of splint 4: scar massage 5: soft putty bariatric program coordinator digit extension roll digit flexion and tripod pinch Skilled Intervention: Patient was educated in proper exercise technique and purpose for exercises. Skilled judgment was provided in selection of appropriate interventions. Provided written instruction for home exercise program to facilitate proper performance and compliance. Modalities: Fluidotherapy Body Region Treated - Fluidotherapy: left hand Patient Position: seated Temperature: 110 Minute(s): 10 Activity 1: AROM Wrist and thumb See flowsheet for details regarding treatment. Skilled Intervention: Proper administration and selection of modality based on clinical presentation, deficits, and needs. Patient response monitored throughout treatment. Billing: Mildred: Therapeutic Exercise ([id number]): 1:1 time:30 minutes (2 units: 23-37 mins) Fluidotherapy (33216) 1 unit(s) Total time: 40 minutes Kiki Mckee OT/[facility] CNTHERAPYon 05-16-2019 CNTHERAPY OT/PT/Speech Visit (OTC) BETTE CLEMENTS ([id number]) 1945 M Date Time Provider Department 05/16/19 1:45 PM KIKI MCKEE (OT) [facility] Date Time Provider Department Center 05/16/2019 1:45 PM [id number] MCKEE [facility] Reason for Visit: Occupational Therapy [504] Primary Visit Diagnosis:Primary osteoarthritis of first carpometacarpal joint of left hand [M18.12] Allergies As of Date: 05/16/2019 Noted Allergy Reaction ALCOHOL 06/04/2008 4 - Hives Comments: Rubbing alcohol ASPIRIN 01/06/2005 5 - Intolerance Comments: WHEEZE AUGMENTIN (AMOXICILLIN-POT CLAVUL*01/06/2005 5 - Intolerance Comments: tingling all over DARVON (PROPOXYPHENE HCL) 01/06/2005 5 - Intolerance DOXYCYCLINE 07/13/2006 2 - Rash 9 - Itching Environmental allergies [Other] 02/22/2006 Comments: Cats, molds LIPITOR (ATORVASTATIN) 01/06/2005 5 - Intolerance NAPROSYN (NAPROXEN) 01/06/2005 5 - Intolerance PAXIL (PAROXETINE HCL) 01/06/2005 5 - Intolerance SPIRIVA WITH HANDIHALER (TIOTROPI*01/06/2005 5 - Intolerance Comments: IRRITABLE,DEPRESSED tape [Other] 02/17/2008 TOPROL XL (METOPROLOL) 01/06/2005 2 - Rash Comments: RASH ZOCOR (SIMVASTATIN) 01/06/2005 5 - Intolerance ZOLOFT (SERTRALINE HCL) 01/06/2005 5 - Intolerance Date Reviewed: 05/13/2019 Reviewed by: Barney Saldivar - Fully Assessed Prescriptions as of 05/16/2019 Sig: VERAPAMIL ER (SR) 120 MG TABL* once daily. LOPERAMIDE 2 MG TABLET Take 2 mg by mouth as needed * BUDESONIDE 0.5 MG/2 ML SUSPEN* Use 0.5 mg via nebulizer twic* PERFOROMIST 20 MCG/2 ML SOLUT* Use 20 mcg via nebulizer ever* TAMSULOSIN 0.4 MG CAPSULE Take 0.4 mg by mouth once glenis* LORAZEPAM 0.5 MG TABLET Take three tablets by mouth a* CLOPIDOGREL 75 MG TABLET Take 1 tablet by mouth once d* IPRATROPIUM 20 MCG-ALBUTEROL * Inhale 1 Puff as instructed e* [id number] IT C-M* Take 2 capsules by mouth once* PIROXICAM 10 MG CAPSULE Take 1 capsule by mouth once * NITROGLYCERIN 0.4 MG SUBLINGU* Dissolve 1 tablet under the t* Patient not taking: Reported on 05/09/2019 GARLIC CAPSULE Take one(1) capsule daily. OTC NUTRITIONAL SUPPLEMENT red yeast rice 1200 mg daily Progress Notes: Kiki Mckee OT/Mandeep 05/16/2019 2:28 PM Signed Episode Visit Count: 2 Therapist That Will Oversee The Plan Of Care: Venu Swanson Start of Care Date: 04/07/19 Onset Date: 04/07/19 Plan of Care Certification Date: 05/09/19 Patient Identified by Name and Date of : Yes REHABILITATION AND SPORTS THERAPY OCCUPATIONAL THERAPY TREATMENT NOTE ASSESSMENT: Bette Clements demonstrated difficulty with heavy use of hand strength. The patient will continue to benefit from continued skilled occupational therapy for exercises education and modalities PLAN FOR NEXT VISIT: putty exercises SUBJECTIVE: Pt reports he has been taking splint off some only has no pain at rest Pain: Pain Pain Level: 0(up to a 4 with activity) OBJECTIVE MEASURES WITH LEVEL OF FUNCTION: TREATMENT: Therapeutic Exercise: 1: wrist flex/ext deviation 2: thumb flex/ext rad and palmar abduction and opposition 3: adjusted splint to increase comfort 4: educated in weaning self out of splint more using during heavier activities 5: soft sponge order picker bariatric program coordinator an manipulate 6: 1# weight wrist flex, ext dev and sup pro x 10 each Skilled Intervention: Patient was educated in proper exercise technique and purpose for exercises. Skilled judgment was provided in selection of appropriate interventions. Modalities: Fluidotherapy Body Region Treated - Fluidotherapy: left hand Patient Position: seated Temperature: 110 Minute(s): 10 Activity 1: AROM Wrist and thumb See flowsheet for details regarding treatment. Skilled Intervention: Proper administration and selection of modality based on clinical presentation, deficits, and needs. Patient response monitored throughout treatment. Billing: Mildred: Therapeutic Exercise ([id number]): 1:1 time:30 minutes (2 units: 23-37 mins) Fluidotherapy (05814) 1 unit(s) Total time: 40 minutes Kiki Mckee OT/ELVA Annotated image of MARGUERITE HAND WRIST STRENGTHENING last updated by Kiki Mckee on 05/16/2019 2:11 PM Normal [facility] PROGRESSon 05-16-2019 PROGRESS HNO ID: [id number] Author: Kiki Mckee Service: ? Author Type: Occupational Therapist Type: Progress Notes Filed: 05/16/2019 2:28 PM Note Text: Episode Visit Count: 2 Therapist That Will Oversee The Plan Of Care: Venu Swanson Start of Care Date: 04/07/19 Onset Date: 04/07/19 Plan of Care Certification Date: 05/09/19 Patient Identified by Name and Date of : Yes REHABILITATION AND SPORTS THERAPY OCCUPATIONAL THERAPY TREATMENT NOTE ASSESSMENT: Bette Clements demonstrated difficulty with heavy use of hand strength. The patient will continue to benefit from continued skilled occupational therapy for exercises education and modalities PLAN FOR NEXT VISIT: putty exercises SUBJECTIVE: Pt reports he has been taking splint off some only has no pain at rest Pain: Pain Pain Level: 0(up to a 4 with activity) OBJECTIVE MEASURES WITH LEVEL OF FUNCTION: TREATMENT: Therapeutic Exercise: 1: wrist flex/ext deviation 2: thumb flex/ext rad and palmar abduction and opposition 3: adjusted splint to increase comfort 4: educated in weaning self out of splint more using during heavier activities 5: soft sponge order picker bariatric program coordinator an manipulate 6: 1# weight wrist flex, ext dev and sup pro x 10 each Skilled Intervention: Patient was educated in proper exercise technique and purpose for exercises. Skilled judgment was provided in selection of appropriate interventions. Modalities: Fluidotherapy Body Region Treated - Fluidotherapy: left hand Patient Position: seated Temperature: 110 Minute(s): 10 Activity 1: AROM Wrist and thumb See flowsheet for details regarding treatment. Skilled Intervention: Proper administration and selection of modality based on clinical presentation, deficits, and needs. Patient response monitored throughout treatment. Billing: [place]: Therapeutic Exercise ([id number]): 1:1 time:30 minutes (2 units: 23-37 mins) Fluidotherapy (84630) 1 unit(s) Total time: 40 minutes Kiki Mckee OT/[facility] CNTHERAPYon 05-09-2019 CNTHERAPY OT/PT/Speech Visit (OTC) BETTE CLEMENTS ([id number]) 1945 M Date Time Provider Department 05/09/19 1:45 PM KIKI MCKEE (OT) [facility] Date Time Provider Department Center 05/09/2019 1:45 PM [id number] MCKEE [facility] Reason for Visit: OT EVAL [748] Visit Diagnosis:Primary osteoarthritis of first carpometacarpal joint of left hand [M18.12] Allergies As of Date: 05/09/2019 Noted Allergy Reaction ALCOHOL 06/04/2008 4 - Hives Comments: Rubbing alcohol ASPIRIN 01/06/2005 5 - Intolerance Comments: WHEEZE AUGMENTIN (AMOXICILLIN-POT CLAVUL*01/06/2005 5 - Intolerance Comments: tingling all over DARVON (PROPOXYPHENE HCL) 01/06/2005 5 - Intolerance DOXYCYCLINE 07/13/2006 2 - Rash 9 - Itching Environmental allergies [Other] 02/22/2006 Comments: Cats, molds LIPITOR (ATORVASTATIN) 01/06/2005 5 - Intolerance NAPROSYN (NAPROXEN) 01/06/2005 5 - Intolerance PAXIL (PAROXETINE HCL) 01/06/2005 5 - Intolerance SPIRIVA WITH HANDIHALER (TIOTROPI*01/06/2005 5 - Intolerance Comments: IRRITABLE,DEPRESSED tape [Other] 02/17/2008 TOPROL XL (METOPROLOL) 01/06/2005 2 - Rash Comments: RASH ZOCOR (SIMVASTATIN) 01/06/2005 5 - Intolerance ZOLOFT (SERTRALINE HCL) 01/06/2005 5 - Intolerance Date Reviewed: 05/09/2019 Reviewed by: Barney Saldivar - Fully Assessed Prescriptions as of 05/09/2019 Sig: VERAPAMIL ER (SR) 120 MG TABL* once daily. LOPERAMIDE 2 MG TABLET Take 2 mg by mouth as needed * BUDESONIDE 0.5 MG/2 ML SUSPEN* Use 0.5 mg via nebulizer twic* PERFOROMIST 20 MCG/2 ML SOLUT* Use 20 mcg via nebulizer ever* TAMSULOSIN 0.4 MG CAPSULE Take 0.4 mg by mouth once glenis* LORAZEPAM 0.5 MG TABLET Take three tablets by mouth a* CLOPIDOGREL 75 MG TABLET Take 1 tablet by mouth once d* IPRATROPIUM 20 MCG-ALBUTEROL * Inhale 1 Puff as instructed e* [id number] IT C-M* Take 2 capsules by mouth once* PIROXICAM 10 MG CAPSULE Take 1 capsule by mouth once * NITROGLYCERIN 0.4 MG SUBLINGU* Dissolve 1 tablet under the t* Patient not taking: Reported on 05/09/2019 GARLIC CAPSULE Take one(1) capsule daily. OTC NUTRITIONAL SUPPLEMENT red yeast rice 1200 mg daily Progress Notes: Kiki Mckee OT/L 05/09/2019 3:57 PM Signed Episode Visit Count: 1 Therapist That Will Oversee The Plan Of Care: Venu Swanson Start of Care Date: 04/07/19 Onset Date: 04/07/19 Plan of Care Certification Date: 05/09/19 Patient Identified by Name and Date of : Yes [facility] REHABILITATION AND SPORTS THERAPY OCCUPATIONAL THERAPY EVALUATION PLAN OF CARE: Assessment: Bette Clements presents with the diagnosis of s/p CMC arthroplasty. He presents with impairments of AROM edema and strength. He may benefit from skilled occupational therapy services to improve function. Prognosis: Good Good due to: current objective clinical presentation Goals for Episode of Care created on 04/07/19 through 08/08/19 Patient will report a good understanding of diagnosis and OT recommendations for progression of program Patient will demonstrate independence with ongoing home exercise program Patient will increase AROM of left wrist and thumb to WNL in order to be able to perform all prehension needed for independent performance of fine motor activities Patient will independently demonstrate correct application of wrist/thumb orthosis and verbalize understanding of proper wear/care by end of session. Patient will report a good understanding of edema control techniques Patient will independently demonstrate scar massage/management in order to decrease scar adherence by discharge Planned Interventions, Frequency, and Duration: Current Frequency: 1x/week Duration: 12 weeks Total Number of Visits Planned: 12 Planned Treatment Interventions: Custom orthosis fabrication;Therapeutic exercise;Manual therapy;Self-nursing home management;ModalitiesFl uidotherapy PLAN FOR NEXT VISIT: trial fluido soft sponge Patient demonstrates good understanding of plan of care and treatment. The above goals and plan of care were discussed and agreed upon by patient/family. SUBJECTIVE: Bette Clements is a 74 year old male seen today for s/p CMC arthroplasty Functional Limitations: gripping;weight bearing;dressing;groomi ng Prior Level of Function: Independent without limitations Intake Information: Prescription present Previous Treatment: None Pain: Pain Pain Level: 0(5 at worst ) Pain Location: Wrist - Left;Thumb - Left Post Treatment Pain Post Treatment Pain Level: No Change Post Treatment Pain Location: Thumb - Left;Wrist - Left PROMIS Scales T-scores: mean of general population = 50. 5 points is clinically meaningfully difference Percentiles provide an indication of how the patient's score ranks in relation to the general population. Higher percentile rankings indicate better function/quality of life. 50th percentile is the average of the general population and indicates half of respondents had a worse score. T-scores: mean of general population = 50. 5 points is clinically meaningfully difference Percentiles provide an indication of how the patient's score ranks in relation to the general population. Higher percentile rankings indicate better function/quality of life. 50th percentile is the average of the general population and indicates half of respondents had a worse score. OBJECTIVE MEASURES WITH LEVEL OF FUNCTION: Hand Skin / Wound: Scar Scar: Tender;Mild adherance Edema Location: left wrist Edema Description: Mild Edema Measurements: Wrist (DWC) (cm) R Wrist (DWC) (cm): 17.3 L Wrist (DWC) (cm): 18.3 Shoulder AROM: WFL Elbow AROM: WFL Wrist AROM: Bilateral Limitation Right Hand AROM: WFL Left Hand AROM: WFL Thumb AROM: Bilateral Limitation Sensation: Reports tingling or numbness(in DRSN) UE AROM R Wrist Extension: 75 Degrees R Wrist Flexion: 75 Degrees R Wrist Radial Deviation: 25 Degrees R Wrist Ulnar Deviation: 45 Degrees L Wrist Extension: 50 Degrees L Wrist Flexion: 30 Degrees L Wrist Radial Deviation: 25 Degrees L Wrist Ulnar Deviation: 20 Degrees Hand AROM R Thumb MP Flexion : 55 Degrees R Thumb IP Flexion : 59 Degrees R Thumb Radial Abduction: 90 Degrees R Thumb Palmar Abduction: 85 Degrees L Thumb MP Flexion : 24 Degrees L Thumb IP Flexion : 52 Degrees L Thumb Radial Abduction: 80 Degrees L Thumb Palmar Abduction: 60 Degrees Education: Education Learning Preferences: Demonstration;Explanati on Barriers: None Learning/educational needs: Procedure / Surgery;Home exercise program;Plan of Care;Brace Fit Education Provided: Yes, see treatment interventions for education provided Education Provided To: Patient Education Mode/Type: Demonstration;Explanati on/Discussion;Literatur e/Printed Materials Response to Education/Teach Back: States/Identifies;Retur n Demonstration TREATMENT: Evaluation Evaluation Therapeutic Exercise: 1: wrist flex/ext deviation 2: thumb flex/ext rad and palmar abduction and opposition 3: fabricated forearm based thumb spica splint instructed in wear schedule and precautions 4: scar massage Skilled Intervention: Patient was educated in proper exercise technique and purpose for exercises. Skilled judgment was provided in selection of appropriate interventions. Self-Senior Care Management: 1: instructed in surgery and activity precautions 2: instructed in use of heat and or ice with precautions Skilled Intervention: Skilled judgment in the selection of proper modification for activity of daily living/home management based on clinical presentation, deficits, and needs. Billing: [place]: Evaluation - Moderate Complexity (86459) Self Care / Home Management (28334): 1:1 time:10 minutes (1 unit: 8-22 mins) Therapeutic Exercise (60674): 1:1 time:10 minutes (1 unit: 8-22 mins) Custom made forearm based thumb spica splint Total time: 55 minutes Kiki Mckee OT/ELVA Annotated image of OT HAND POST-OP EX'S [id number] last updated by Kiki Mckee on 05/09/2019 2:17 PM Annotated image of OT HAND TENDON GLIDING THUMB EX'S last updated by Kiki Mckee on 05/09/2019 2:17 PM Normal [facility] PROGRESSon 05-09-2019 PROGRESS HNO ID: [id number] Author: Kiki Mckee Service: ? Author Type: Occupational Therapist Type: Progress Notes Filed: 05/09/2019 3:57 PM Note Text: Episode Visit Count: 1 Therapist That Will Oversee The Plan Of Care: Venu Swanson Start of Care Date: 04/07/19 Onset Date: 04/07/19 Plan of Care Certification Date: 05/09/19 Patient Identified by Name and Date of : Yes [facility] OCCUPATIONAL THERAPY EVALUATION PLAN OF CARE: Assessment: Bette Clements presents with the diagnosis of s/p CMC arthroplasty. He presents with impairments of AROM edema and strength. He may benefit from skilled occupational therapy services to improve function. Prognosis: Good Good due to: current objective clinical presentation Goals for Episode of Care created on 04/07/19 through 08/08/19 Patient will report a good understanding of diagnosis and OT recommendations for progression of program Patient will demonstrate independence with ongoing home exercise program Patient will increase AROM of left wrist and thumb to WNL in order to be able to perform all prehension needed for independent performance of fine motor activities Patient will independently demonstrate correct application of wrist/thumb orthosis and verbalize understanding of proper wear/care by end of session. Patient will report a good understanding of edema control techniques Patient will independently demonstrate scar massage/management in order to decrease scar adherence by discharge Planned Interventions, Frequency, and Duration: Current Frequency: 1x/week Duration: 12 weeks Total Number of Visits Planned: 12 Planned Treatment Interventions: Custom orthosis fabrication;Therapeutic exercise;Manual therapy;Self-nursing home management;ModalitiesFl uidotherapy PLAN FOR NEXT VISIT: trial fluido soft sponge Patient demonstrates good understanding of plan of care and treatment. The above goals and plan of care were discussed and agreed upon by patient/family. SUBJECTIVE: Bette Clements is a 74 year old male seen today for s/p CMC arthroplasty Functional Limitations: gripping;weight bearing;dressing;groomi ng Prior Level of Function: Independent without limitations Intake Information: Prescription present Previous Treatment: None Pain: Pain Pain Level: 0(5 at worst ) Pain Location: Wrist - Left;Thumb - Left Post Treatment Pain Post Treatment Pain Level: No Change Post Treatment Pain Location: Thumb - Left;Wrist - Left PROMIS Scales T-scores: mean of general population = 50. 5 points is clinically meaningfully difference Percentiles provide an indication of how the patient's score ranks in relation to the general population. Higher percentile rankings indicate better function/quality of life. 50th percentile is the average of the general population and indicates half of respondents had a worse score. T-scores: mean of general population = 50. 5 points is clinically meaningfully difference Percentiles provide an indication of how the patient's score ranks in relation to the general population. Higher percentile rankings indicate better function/quality of life. 50th percentile is the average of the general population and indicates half of respondents had a worse score. OBJECTIVE MEASURES WITH LEVEL OF FUNCTION: Hand Skin / Wound: Scar Scar: Tender;Mild adherance Edema Location: left wrist Edema Description: Mild Edema Measurements: Wrist (DWC) (cm) R Wrist (DWC) (cm): 17.3 L Wrist (DWC) (cm): 18.3 Shoulder AROM: WFL Elbow AROM: WFL Wrist AROM: Bilateral Limitation Right Hand AROM: WFL Left Hand AROM: WFL Thumb AROM: Bilateral Limitation Sensation: Reports tingling or numbness(in DRSN) UE AROM R Wrist Extension: 75 Degrees R Wrist Flexion: 75 Degrees R Wrist Radial Deviation: 25 Degrees R Wrist Ulnar Deviation: 45 Degrees L Wrist Extension: 50 Degrees L Wrist Flexion: 30 Degrees L Wrist Radial Deviation: 25 Degrees L Wrist Ulnar Deviation: 20 Degrees Hand AROM R Thumb MP Flexion : 55 Degrees R Thumb IP Flexion : 59 Degrees R Thumb Radial Abduction: 90 Degrees R Thumb Palmar Abduction: 85 Degrees L Thumb MP Flexion : 24 Degrees L Thumb IP Flexion : 52 Degrees L Thumb Radial Abduction: 80 Degrees L Thumb Palmar Abduction: 60 Degrees Education: Education Learning Preferences: Demonstration;Explanati on Barriers: None Learning/educational needs: Procedure / Surgery;Home exercise program;Plan of Care;Brace Fit Education Provided: Yes, see treatment interventions for education provided Education Provided To: Patient Education Mode/Type: Demonstration;Explanati on/Discussion;Literatur e/Printed Materials Response to Education/Teach Back: States/Identifies;Retur n Demonstration TREATMENT: Evaluation Evaluation Therapeutic Exercise: 1: wrist flex/ext deviation 2: thumb flex/ext rad and palmar abduction and opposition 3: fabricated forearm based thumb spica splint instructed in wear schedule and precautions 4: scar massage Skilled Intervention: Patient was educated in proper exercise technique and purpose for exercises. Skilled judgment was provided in selection of appropriate interventions. Self-Senior Care Management: 1: instructed in surgery and activity precautions 2: instructed in use of heat and or ice with precautions Skilled Intervention: Skilled judgment in the selection of proper modification for activity of daily living/home management based on clinical presentation, deficits, and needs. Billing: [place]: Evaluation - Moderate Complexity (53718) Self Care / Home Management (98349): 1:1 time:10 minutes (1 unit: 8-22 mins) Therapeutic Exercise (37038): 1:1 time:10 minutes (1 unit: 8-22 mins) Custom made forearm based thumb spica splint Total time: 55 minutes Kiki Mckee OT/ELVA Normal [facility] PROGRESS HNO ID: [id number] Author: LISSETTE Morrison (Ct) Service: ? Author Type: Clinical Diabetes Specialist Type: Progress Notes Filed: 05/09/2019 12:57 PM Note Text: NAME:Bette Clements DATE: May 09, 2019 [facility]#: [id number] Upper Extremity X-Ray(s): Hand, left COMPLETED TECH ID SIGN: MAXWELL CULP [facility] XR HAND 3V PA/LAT/OBL LTon 0 05-09-2019 XR HAND 3V PA/LAT/OBL LT * * *Final Repo rt* * * DATE OF EXAM: May 09 2019 12:56PM MDO [id number] - XR HAND 3V PA/LAT/OBL LT / PROCEDURE REASON: M18.12-Primary osteoarthritis of first carpometacarpal joint of left hand * * * * Physician Interpretation * * * * History: Prior osteoarthritis of the first CMC joint of the left hand FINDINGS: AP, lateral, and oblique left hand are compared to prior study of 02/28/2019. Patient has had interval resectioning of the left trapezium. Mild soft tissue calcification is seen adjacent distal aspect of the navicular. Small distal navicular subchondral cyst noted. The bones are osteopenic. No acute bony process is seen. IMPRESSION: Postsurgical change, as described. No acute process. Commercial Sewing Instructor: TENZIN Transcribe Date/Time: May 09 2019 2:14P Dictated by : JIMMY GUTIERREZ MD This examination was interpreted and the report reviewed and electronically signed by: JIMMY GUTIERREZ MD on May 09 2019 2:15PM EST [id number] [facility] ANES Eliezer 04-07-2019 ANES POST HNO ID: [id number] Author: Rhys Velazquez MD Service: Anesthesiology Author Type: Anesthesiologist Type: Anesthesia PostOp Filed: 04/07/2019 10:35 AM Note Text: POST ANESTHESIA EVALUATION NOTE SERVICE DATE: 04/07/2019 SERVICE TIME: 1035 : 1944 Vitals: 04/07/19 0623 04/07/19 0938 Temp: 36.3 ?C (97.3 ?F) 36.7 ?C (98.1 ?F) 04/07/19 0938 04/07/19 0945 04/07/19 1000 04/07/19 1015 BP: 135/72 141/78 137/79 138/82 04/07/19 0938 04/07/19 0945 04/07/19 1000 04/07/19 1015 Pulse: 90 87 75 66 04/07/19 0938 04/07/19 0945 04/07/19 1000 04/07/19 1015 Resp: 16 17 13 12 04/07/19 0938 04/07/19 0945 04/07/19 1000 04/07/19 1015 SpO2: 94% 95% 90% 92% Validated Vital Signs: Yes POST ANES STATUS: No apparent anesthetic complications. The patient is appropriately hydrated with stable respiratory and cardiovascular status. Patient has safe and adequate airway control. The patient has appropriate pain relief and no significant post operative nausea or vomiting. The patient has achieved baseline mental status. Intra-Operative Events: No Significant Anesthesia Events Further assessment by Anesthesia Service: None Other Remarks: SIGNATURE: Rhys Velazquez MD PATIENT NAME: Bette Clements DATE: April 07, 2019 TIME: 10:35 AM PAGER/CONTACT #: [facility] ANES PREOPon 04-07-2019 ANES PREOP HNO ID: [id number] Author: Rhys Velazquez MD Service: Anesthesiology Author Type: Anesthesiologist Type: Anesthesia PreOp Filed: 04/07/2019 6:59 AM Note Text: ANESTHESIOLOGY DAY OF SURGERY NOTE SERVICE DATE: 04/07/2019 SERVICE TIME: 654 : 1944 Procedure(s) (LRB): ARTHROPLASTY WRIST INTERPOSITION INTERCARPAL OR CARPOMETACARPAL (Left) Surgeon(s): Barney Saldivar Estimated body mass index is 26.46 kg/m? as calculated from the following: Height as of this encounter: 170.2 cm (5' 7.01). Weight as of this encounter: 76.7 kg (169 lb). Most recent hematocrit and potassium results: Hematocrit 44.0 03/03/2019 Potassium 3.8 03/03/2019 ANES DOS/PREOP NOTE: Vitals: 04/07/19 0623 BP: 182/96 Pulse: 104 Resp: 16 Temp: 36.3 ?C (97.3 ?F) TempSrc: Temporal Artery SpO2: 93% Weight: 76.7 kg (169 lb) Height: 170.2 cm (5' 7.01) ACTIVE PROBLEM LIST Copd (Chronic Obstructive Pulmonary Disease) (Hcc) Coronary Atherosclerosis Essential Hypertension, Benign Other Hyperlipidemia Esophageal Reflux Insomnia, Unspecified Allergic Rhinitis, Cause Unspecified Unspecified Sinusitis (Chronic) Malignant Neoplasm of Colon, Unspecified Site Acute Gastritis Without Mention of Hemorrhage Diaphragmatic Hernia Without Mention of Obstruction Or Gangrene Malignant Neoplasm of Rectum (Hcc) 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) Iron Deficiency Anemia, Unspecified Hypertrophy of Prostate With Urinary Obstruction and Other Lower Urinary Tract Symptoms (Luts) Diarrhea Inguinal Hernia H/O Malignant Neoplasm of Rectum Personal History of Rectal Cancer Primary Osteoarthritis of First Carpometacarpal Joint of Left Hand Nocturnal Hypoxemia PAST MEDICAL HISTORY Diagnosis Date - Acute gastritis without mention of hemorrhage - Acute myocardial infarction of other specified sites, episode of care unspecified 05/2007 Myocardial Infarction - Asthma - COPD (chronic obstructive pulmonary disease) (HCC) - Diaphragmatic hernia without mention of obstruction or gangrene - Fever and other physiologic disturbances of temperature regulation - Hemorrhage of gastrointestinal tract, unspecified - Malignant neoplasm of colon, unspecified site - Obstructive chronic bronchitis with exacerbation (HCC) COPD - Other diseases of lung, not elsewhere classified - Reflux esophagitis - Unspecified chronic bronchitis (HCC) - Unspecified sinusitis (chronic) PAST SURGICAL HISTORY Procedure Laterality Date - COLONOSCOP W/ OR W/O [facility] SPEC clean anastamosis, some radiation changes - COLONOSCOP W/ OR W/O [facility] SPEC 08/14/09 Colonoscopy [facility] inpt - COLONOSCOPY W/BX 09/21/07 - EGD W/O [facility] SPECIMEN W/BX 09/21/07 - EXCISION NOSE POLYP(S),SIMPLE age 17 Nasal polypectomy - HEMORRHOIDECT INTER/EXTER SIMP HEMMORIDECTOMY - LAP COLECTOMY W COLOPROCTOST 11/15/2007 Low cancer - PAST SURGICAL HISTORY OF 2006 umbilical hernia repair - PULMONARY FUNCTION TEST 05/10/03 - REMOVAL OF TONSILS,<12 Y/O Tonsillectomy - REPAIR ING HERNIA,5+Y/O,REDUCIBL 11/20/09 Right, sliding - REPAIR OF NASAL SEPTUM Septoplasty - TRANSCATH STENT ADDN VESSEL,PERCUT 05/30/2007 Transcath stent addn vessel percut- 3 stents - TRANSCATH STENT INIT VESSEL,PERCUT 05/27/07 Transcath stent init vessel percut - - TUNNEL VAD W SUB Q PORT >=5 02/08/2008 Left Subclavian FAMILY HISTORY Problem Relation Age of Onset - None Mother - Heart Father CABG X4 - Diabetes Father - Heart Paternal Grandfather MD'S - Diabetes Paternal Grandmother - Emphysema Maternal Grandfather - Heart Maternal Grandmother Social History: Social History Tobacco Use - Smoking status: Former Smoker Packs/day: 1.00 Years: 45.00 Pack years: 45.00 Types: Cigarettes Last attempt to quit: 01/27/2001 Years since quittin.2 - Smokeless tobacco: Never Used Substance Use Topics - Alcohol use: Yes Comment: 1 shot at night before bed - Drug use: No No current facility-administered medications on file prior to encounter. Current Outpatient Medications on File Prior to Encounter Medication Sig - budesonide (PULMICORT) 0.5 mg/2 mL nebulizer solution Use 0.5 mg via nebulizer twice daily. - PERFOROMIST 20 mcg/2 mL nebu Use 20 mcg via nebulizer every 12 hours. - tamsulosin ER (FLOMAX) 0.4 mg cp24 Take 0.4 mg by mouth once daily. - LORazepam (ATIVAN) 0.5 mg tab Take three tablets by mouth at bedtime as needed. - clopidogrel (PLAVIX) 75 mg tablet Take 1 tablet by mouth once daily. - ipratropium-albuterol 20-100 mcg/Puff aero inhaler Inhale 1 Puff as instructed every 6 hours as needed. - Vymiixaauna-Jneeoijxv-Z it C-Mn (GLUCOSAMINE CHONDROITIN MAXSTR) 500-400 mg cap Take 2 capsules by mouth once daily. - piroxicam (FELDENE) 10 mg capsule Take 1 capsule by mouth once daily. - nitroglycerin sublingual (NITROSTAT) 0.4 mg SUBLINGUAL SL tablet Dissolve 1 tablet under the tongue as needed. (Patient not taking: Reported on 03/03/2019 ) - Garlic ORAL Cap Take one(1) capsule daily. - OTC NUTRITIONAL SUPPLEMENT red yeast rice 1200 mg daily Current Facility-Administered Medications Medication Dose Route Frequency Provider Last Rate Last Dose - lidocaine 10 mg/mL (1 %) 1-2 mg injection (XYLOCAINE) 0.1-0.2 mL INTRADERMAL PRN Shirley (Pa) Vetovitz - lactated ringers infusion 5-30 mL/hr INTRAVENOUS CONTINUOUS Shirley (Pa) Vetovitz 30 mL/hr at 04/07/19 0630 30 mL/hr at 04/07/19 0630 - clindamycin iv piggyback 600 mg in D5W 50 mL (CLEOCIN) 600 mg INTRAVENOUS Pre-Op Once Shirley Villarreal (Pa) - midazolam (PF) 2 mg injection (VERSED) 2 mg INTRAVENOUS ONCE Dio Whalenosman Allergies: ALLERGIES Allergen Reactions - Alcohol Hives Rubbing alcohol - Aspirin Intolerance WHEEZE - Augmentin [Amoxicil* Intolerance tingling all over - Darvon [Propoxyphen* Intolerance - Doxycycline Rash, Itching - Environmental Aller* Cats, molds - Lipitor [Atorvastat* Intolerance - Naprosyn [Naproxen] Intolerance - Paxil [Paroxetine H* Intolerance - Spiriva With Handih* Intolerance IRRITABLE,DEPRESSED - Tape [Other] - Toprol Xl [Metoprol* Rash RASH - Zocor [Simvastatin] Intolerance - Zoloft [Sertraline * Intolerance DOS EXAM: Adequate NPO status: Yes Anesthetic risks, benefits, alternatives, personnel and consent discussed: Yes Patient agrees to proceed: Yes Previous Anesthesia: No history of adverse event. Airway Assessment: MP 2; Neck ROM: Full ROM without neurologic symptoms; Airway Evaluation: Griffin Present Symptoms of Sleep Apnea: Snoring, Hypertension, Age over 50 (73 year old) and Male gender Dentition: Teeth intact Poor dentition Additional Physical Exam: Lungs: Patient health status unchanged since recent history and physical. See history and physical for exam findings. Cardiac: Patient health status unchanged since recent history and physical. See history and physical for exam findings. Blood Products: Not anticipated for this procedure. Anesthetic Plan: MAC with Sedation and Standard ASA Monitors Pain Management Plan: Parenteral or Oral and Peripheral Nerve Block ASA Class: 3 Other Medical Problems: IBS, pt okay to take home Rx Chronic Beta Kimberley medication administered within 24 hours: N/A I have interviewed and examined the patient. I have reviewed the medical record and/or the pre-anesthesia evaluation, pertinent labs, and test results. Significant changes in the patient's condition since the History and Physical, not otherwise documented in primary service progress notes: No This contains updated information obtained within 48 hours of Surgery/Procedure. SIGNATURE: Rhys Velazquez MD PATIENT NAME: Bette Clements DATE: April 07, 2019 TIME: 6:57 AM CSN: [id number] [facility] NURSING PROGon 04-07-2019 NURSING PROG HNO ID: [id number] Author: Morena (Rn) TREVOR Henry Service: ? Author Type: Registered Nurse Type: Nursing Progress Note Filed: 04/07/2019 8:48 AM Note Text: Dr. Velazquez at bedside for Left Axillary nerve block. RN at bedside, pt monitored throughout, BP 162/92 Pulse 76 Temp 36.3 ?C (97.3 ?F) (Temporal Artery) Resp 16 Ht 170.2 cm (5' 7.01) Wt 76.7 kg (169 lb) SpO2 95% BMI 26.46 kg/m? .Pt tolerated procedure without difficulty. [facility] OPERATIVE NOon 04-07-2019 OPERATIVE NO HNO ID: [id number] Author: Barney Saldivar Service: Orthopaedic Surgery Author Type: Physician Type: Operative Report Filed: 04/07/2019 11:21 AM Note Text: OPERATIVE/PROCEDURE REPORT ? LOG ID: [id number] Surgery/Procedure Date: 04/07/2019 Incision/Procedure Start Time: 7:58 AM Incision Close/Procedure End Time: 9:32 AM Surgeon(s)/Proceduralis t(s) and Trimmer Press Clippings(s): Surgeon(s) and Role: * Barney Saldivar - Primary Physician Trimmer Press Clippings: Shirley Villarreal (Pa) ? Procedure(s): Left thumb, CMC arthroplasty with ligament reconstruction and tendon interposition, palmaris longus. Pinning of MCP joint. ? Anesthesia: General with regional. ? Procedure Details: PROCEDURE:? On 04/07/2019, the patient was identified in the preoperative area and? marked on the Left thumb accordingly.?Patient had a regional block placed per? the anesthetic team.? Pt. Received 2 g of Ancef within one hour of incision or tourniquet. Patient was placed in a supine position and placed an arm? board on the effected limb.? A well padded tourniquet was applied and set at 250 mmHg.? An appropriate time out was conducted and all were in agreement. Signed?consent form was on the chart and images were available for viewing. The upper extremity was then exsanguinated with an Esmarch bandage and the? tourniquet was applied at 250 mmHg.? A longitudinal incision was identified over? the dorsal portion of the CMC joint.? I made the incision approximately 3 cm, centered over this.? Furthermore, a palmar incision was marked over the palmaris longus tendon at the? flexure crease of the wrist.? Superficial skin incision was made with a 15 blade and this was? then bluntly dissected with Littler scissors.? I was able to identify the branches of the radial? sensory nerve and these were identified and protected with retraction throughout? the case.? I then came down through the interval of the APL and EPB tendons and? came directly down to the periosteum and divided the capsule over the top of the? joint, coming down on the trapezium.? The radial artery was identified clearly in? the proximal portion of the incision and protected throughout the case with a? Ragnell retractor.? I then painstakingly dissected the soft tissues off the? trapezium and identified all the borders of the bone including the surrounding? joint spaces.? The CMC joint showed no cartilage and sclerotic, irregular surfaces, bone on bone appearance. Large osteophytes in the gutter between first and second metacarpal heads as well as a giant piece on the most radial side of the bone. Once the soft tissues were appropriately released from the? trapezium protecting the adjacent cartilage and soft tissues, I used a? reciprocating saw to place a scored cross in the bone quartering it.? I then? finished the osteotomies with a 1/4-inch osteotome.? I then removed, in a? piecemeal fashion, the trapezium while protecting the underlying FCR tendon.? This? was identified and shown to be in continuity.? I placed a 3-0 Tevdek suture? through the volar capsule.? I then focused my attention on preparing? the site for the tendon graft.? Starting on the dorsal surface of the thumb with? my exiting point just slightly on the volar side of the base of the metacarpal,? sequential drill bits were used to fashion the tunnel for the graft and to re-create the beak ligament.? The? positioning was to my liking and the tunnel and the joint were copiously irrigated? to remove any bony debris.? Then focused my attention on the palmar incision which? was made again superficially with a 15 blade.? The central superficial vein was? identified and ligated with bipolar, and the palmaris longus tendon was identified? and freed of any of its soft tissue adhesions.? A whip stitch was placed with a 3-? 0 Maxon suture and the tendon was divided at the wrist crease and a tendon? stripper was then passed atraumatically, retrieving an excellent palmaris graft.? Some of the muscle portion was appropriately cleaned off, and then passed the? graft around the FCR tendon in the trapeziectomy site, bringing it up through the? drill hole, affectively recreating the beak ligament.? This was tied upon itself? and secured in place with the Tevdek suture.? A number of [id number] from? the tendon were secured, and the remaining portion of the tendon was rolled into? an anchovy and secured nicely down in the trapeziectomy site, successfully? interposing the tendon and securing it in place with the previously placed Tevdek? suture in the volar capsule.? This showed a nice suspension with recreation of the? beak ligament and interposition to my liking.? Due to his 30-40 degrees of hyperextension at the MCP joint, I elected to pin the joint temporarily. A 0.045 k wire was selected. Using fluoroscopy, the MCP joint was pinned with slight flexion at the joint. Images confirmed appropriate positioning and hardware. The pin was bent and cut, with a cap placed. At this time, the tourniquet was? taken down and hemostasis was observed with bipolar electrocautery.? The wounds were? copiously irrigated with normal saline and we began our closure.? I closed? the redundant dorsal capsule, in a vest over pants fashion with with 3-0 Biosyn?sutures.? Again, the radial sensory nerve was identified and shown? to be in continuity at the end of the case, and I closed down the subcutaneous? tissues over the joint with buried 3-0 Biosyn suture.? Final skin closure was? completed with a 4-0 Biosyn subcuticular weave both on the dorsal side and the? palmar incisions.? Steri-Strips, Xeroform gauze, sterile 4 x 4, Webril padding,? and a well positioned thumb spica splint with the IP joint free, which was secured? with a light Mariola wrap and Ju bandage.? There were no complications during the? procedure.? Patient was safely awoken after we placed a light soft bandage on the? shoulder, and she was taken to the Postoperative Suite in stable condition. ? Pre-Op/Pre-Procedure Diagnosis: Left thumb, CMC osteoarthritis, subsequent. Hyper laxity of the left MCP joint. ? Post-Op/Post-Procedure Diagnosis: same Estimated Blood Loss: 0 ml ? Specimens: None ? Implantable Devices: None ? Drains: None ? Complications: None ? ? PARTICIPATION IN SURGERY/PROCEDURE: I performed the procedure with assistance. There were no residents or fellows available. customer support assistant was important and patient transport, positioning the patient and arm board and tourniquet application. Soft tissue retraction throughout the case and manual manipulation of the thumb. Assistance with drilling and suture management. Passing of the tendon graft, final skin closure and splint and bandage application. SIGNATURE: Barney Saldivar MD PATIENT NAME: Bette Clements DATE: April 07, 2019 TIME: 11:14 AM PAGER/CONTACT #: [facility] PT EDon 04-07-2019 PT ED HNO ID: [id number] Author: Mikie Cary RN Service: Nursing Author Type: Registered Nurse Type: Patient Education Filed: 04/07/2019 10:36 AM Note Text: POST OP LEARNING RESPONSE INSTRUCTION PROVIDED TO: Patient and family member METHOD OF INSTRUCTION: Written instruction - handouts Verbal instruction PATIENT / FAMILY RESPONSE: Verbalizes understanding of: POST-OPERATIVE INSTRUCTIONS-Correct actions to take to reduce postoperative complications FOLLOW-UP PLAN: Recommend - Recommend continued instruction and follow up as directed SUPPLEMENTAL MATERIAL: None REFERRAL (RECOMMENDATION): None Electronically Signed By: Mikie Cary RN In Department: [facility] SURGERY [facility] PT ED HNO ID: [id number] Author: Mikie Cary RN Service: Nursing Author Type: Registered Nurse Type: Patient Education Filed: 04/07/2019 6:15 AM Note Text: PRE OP LEARNING ASSESSMENT PROCEDURE/SURGERY: SURGERY: ARTHROPLASTY WRIST INTERPOSITION INTERCARPAL OR CARPOMETACARPAL READINESS TO LEARN COGNITIVE ABILITY: Alert and oriented MOTIVATION TO LEARN: Eager FAMILY SUPPORT: High - Very involved in pt care PATIENT LEARNS BEST BY: Written Instruction - Hand-outs Verbal Instruction FACTORS AFFECTING LEARNING: None PHYSICAL LIMITATIONS AFFECTING LEARNING: None Electronically Signed By: Mikie Cary RN In Department: [facility] SURGERY [facility] XR FLUOROSCOPYon 04-07-2019 XR FLUOROSCOPY * * *Final Report* * * DATE OF EXAM: Apr 07 2019 9:30AM MDR [id number] - XR FLUOROSCOPY / PROCEDURE REASON: ARTHROPLASTY LEFT WRIST FOR OSTEOARTHRITIS OF 1ST CMC JOINT * * * * Physician Interpretation * * * * Study: Pain management. XR FLUOROSCOPY HISTORY: Indication: ARTHROPLASTY LEFT WRIST FOR OSTEOARTHRITIS OF 1ST CMC JOINT LEFT WRIST TECHNIQUE: Fluoroscopic Radiation Summary: Plane A, Air Kerma: 7.3 mGy Dose Area Product (DAP): 0.0 mGy*cm^2 Fluoro time: 0:18 min:sec Images obtained: 2 Spot film images under fluoroscopic guidance. Images were stored in a permanent archive. Comparison: NONE. RESULT: Findings: 2 spot film images obtained over the tip of the needle projects over the first metacarpal phalangeal area. There are severe degenerative changes in the first metacarpal carpal joint noted. See procedural note in Epic for further discussion. IMPRESSION: As discussed above Commercial Sewing Instructor: TENZIN Transcribe Date/Time: Apr 07 2019 10:43A Dictated by : CHELE GASCA DO This examination was interpreted and the report reviewed and electronically signed by: CHELE GASCA DO on Apr 07 2019 10:44AM EST [id number] [facility] NURSING PROGon 03-06-2019 NURSING PROG HNO ID: [id number] Author: Jeri (Rn) TREVOR Pagan Service: ? Author Type: Registered Nurse Type: Nursing Progress Note Filed: 04/06/2019 7:27 AM Note Text: PACC Nurse Progress Note History AND Physical: PACC Visit Date: 03/03/19 Original HANDP Date: N/A ED visit Date: N/A Outside HANDP Scanned Date: N/A Labs Within Last 6 Months: CBC: Date 03/03/19 within acceptable limits BMP/CMP: Date 03/03/19 glucose 107 Imaging Within Last 12 Months: X-ray left hand 02/18 Cardiac Testing: EKG in last 12 Months: Yes: Date: 03/03/19, Comment: NORMAL SINUS RHYTHM LEFT AXIS DEVIATION NONSPECIFIC T WAVE ABNORMALITY BMI Percentile (PEDS): N/A Risk Assessment: N/A Anesthesia Review: N/A Narrative: N/A Pre-op Considerations: Plavix hold 5 days GERD Chart Check: COMPLETED Gisela Cornejo RN March 06, 2019 3:22 PM Addendum: Surgery rescheduled related to in the family History AND Physical: PACC Visit Date: 03/27/19 No new test ordered during PACC visit Narrative: Per HPI: COPD-follows with Pulmonary- Dr. Lee Kessler last office visit 01/10/19-see care everywhere under summarization, CAD-stents 2007-on Plavix Pre op consideration: Per telephone encounter done 03/27/19-okay to continue Feldene, okay to stop Plavix 5 days before surgery; expected last dose 04/01/19. Chart check Complete Jeri Pagan RN April 06, 2019 7:20 AM [facility] HOSPon 02-28-2019 HOSP Patient:Bette Clements MRN: Height:5' 7(1.702 m) Weight:169 lb (76.658 kg) Outpatient Medications as of 04/07/19: verapamil SR (CALAN SR, ISOPTIN SR) 120 mg CR tablet Loperamide HCl (IMODIUM A-D) 2 mg tab budesonide (PULMICORT) 0.5 mg/2 mL nebulizer solution PERFOROMIST 20 mcg/2 mL nebu tamsulosin ER (FLOMAX) 0.4 mg cp24 LORazepam (ATIVAN) 0.5 mg tab clopidogrel (PLAVIX) 75 mg tablet ipratropium-albuterol 20-100 mcg/Puff aero inhaler Pkgsdaxzgig-Gysvlkrze-W it C-Mn (GLUCOSAMINE CHONDROITIN MAXSTR) 500-400 mg cap piroxicam (FELDENE) 10 mg capsule nitroglycerin sublingual (NITROSTAT) 0.4 mg SUBLINGUAL SL tablet Garlic ORAL Cap OTC NUTRITIONAL SUPPLEMENT Admission/Clinic Administered Medications as of 04/07/19: lidocaine 10 mg/mL (1 %) 1-2 mg injection (XYLOCAINE) lactated ringers infusion clindamycin iv piggyback 600 mg in D5W 50 mL (CLEOCIN) midazolam (PF) 2 mg injection (VERSED) Problem List: COPD (chronic obstructive pulmonary disease) (HCC) [J44.9] Coronary atherosclerosis [I25.10] Essential hypertension, benign [I10] Other hyperlipidemia [E78.49] Esophageal reflux [K21.9] Insomnia, unspecified [G47.00] Allergic rhinitis, cause unspecified [J30.9] Unspecified sinusitis (chronic) [J32.9] Malignant neoplasm of colon, unspecified site [C18.9] Acute gastritis without mention of hemorrhage [K29.00] Diaphragmatic hernia without mention of obstruction or gangrene [K44.9] Malignant neoplasm of rectum (HCC) [C20] 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] Iron deficiency anemia, unspecified [D50.9] Hypertrophy of prostate with urinary obstruction and other lower urinary tract symptoms (LUTS) [N40.1] Diarrhea [R19.7] Inguinal hernia [K40.90] H/O malignant neoplasm of rectum [Z85.048] Personal history of rectal cancer [Z85.048] Primary osteoarthritis of first carpometacarpal joint of left hand [M18.12] Nocturnal hypoxemia [G47.34] Allergies: Alcohol Aspirin Augmentin [Amoxicillin-Pot Clavulanate] Darvon [Propoxyphene Hcl] Doxycycline Environmental allergies [Other] Lipitor [Atorvastatin] Naprosyn [Naproxen] Paxil [Paroxetine Hcl] Spiriva With Handihaler [Tiotropium [place]] tape [Other] Toprol Xl [Metoprolol] Zocor [Simvastatin] Zoloft [Sertraline Hcl] Date Verified: 04/07/19 Lab Values No results within the last 30 days for the following basenames: K,HCT Progress Notes (PRE ANES BAO): Alicia Luque APRN.CNP 03/27/2019 3:13 PM Signed Pt seen again for pre-testing today and just want to clarify AC instructions. I see Dr. Saldivar had instructed pt to hold Plavix for 5 days prior to surgery, but pt is intolerant of ASA (h/o cardiac stents, 2007). He does take daily Feldene for h/o fever of unknown origin since the s. It appears you were ok him staying on this for surgery prior to the previous cancellation. Charla Perez Ma 03/28/2019 9:26 AM Signed Alicia Castro (Aisha) Rebel Uribe 7 minutes ago (9:14 AM) Can you notify pt he can continue his Feldene pre-operatively and stop the Plavix 5 days prior to surgery as directed. Routing comment Shirley Valencia) Phil Castro (Aisha) Rebel 16 hours ago (4:25 PM) Yes, he can stay on his Feldene. Thanks, Shirley Pt notified of instructions and verbalized understanding. Charla Perez Ma Progress Notes ([facility]): Ronna Chu RN 03/24/2019 10:40 AM Signed Pt. scheduled for OT at [place] post -op CMC arthroplasty instead of [facility] , and appt. rescheduled fro 05-09-18 in [place]. Called pt. to notify him, and appointment reminders mailed to pt. Ronna Chu RN 03/24/2019 10:45 AM Signed [facility] notified that pt. no longer needs OT appt. [facility] PROGRESSon 02-28-2019 PROGRESS HNO ID: [id number] Author: LISSETTE Morrison (Ct) Service: ? Author Type: Clinical Diabetes Specialist Type: Progress Notes Filed: 02/28/2019 1:16 PM Note Text: NAME:Bette Clements DATE: February 28, 2019 CCF#: [id number] Upper Extremity X-Ray(s): Hand, left COMPLETED TECH ID SIGN: MAXWELL CULP [facility] XR HAND 3V PA/LAT/OBL LTon 1 XR HAND 3V PA/LAT/OBL LT * * *Final Repo rt* * * DATE OF EXAM: Feb 28 2019 1:18PM ALEISHA [id number] - XR HAND 3V PA/LAT/OBL LT / PROCEDURE REASON: [id number] * * * * Physician Interpretation * * * * Left hand radiograph HISTORY: 73 years old Clinical information: Pain PAIN CMC--TRIGGER FINGERS TECHNIQUE: Images: XR HAND 3V PA/LAT/OBL LT Comparison: None. RESULT: Findings: Osteophyte formation subjacent to the first CMC joint. Radial subluxation of the first metacarpal. Degenerative cyst formation involving the distal scaphoid. Osteophyte formation subjacent to the interphalangeal joint of the thumb. No erosions are seen. No chondrocalcinosis. IMPRESSION: Osteoarthrosis. No evidence of an inflammatory arthropathy. Commercial Sewing Instructor: TENZIN Transcribe Date/Time: Feb 28 2019 3:56P Dictated by : FRANCES RIBEIRO MD This examination was interpreted and the report reviewed and electronically signed by: FRANCES RIBEIRO MD on Feb 28 2019 3:57PM EST [id number] [facility] Office Visit: COPDon 017 Documentation of current medications (procedure) Done Invalid Interpretation Code [facility] Work Phone: Fall risk assessment No Invalid Interpretation Code [facility] Work Phone: Tobacco smoking status NHIS Never Invalid Interpretation Code [facility] Work Phone: Tobacco use CP Former smoker Invalid Interpretation Code [facility] Work Phone: Office Visit: [facility] 08-28-2016 Documentation of current medications (procedure) Done Invalid Interpretation Code [facility] Work Phone: Tobacco smoking status [facility] Never Invalid Interpretation Code [facility] Work Phone: Tobacco use [facility] Former smoker Invalid Interpretation Code [facility] Work Phone: Append: Pulmonary Rehab refe rralon 04-10-2016 Clinical consultation report (record artifact) [id number] Invalid Interpretation Code [facility] Work Phone: Office Visit: COP[facility] 016 Smoking cessation education (procedure) yes Invalid Interpretation Code [facility] Work Phone: Microbiology: Culture, Sputu mon 08-07-2015 Bacteria sputum culture . Invalid Interpretation Code [facility] Work Phone: Vital Signs Date Time Vital Sign Value Performing Clinician Facility 09-27-2024 08:28-0400 Body mass index (BMI) [Ratio] 20.7 kg/m2 Tiffanie Carr [employer] RECOVERY OPERATOR-C Work Phone: [facility] 09-27-2024 08:28-0400 Body temperature 96.7 [degF] Tiffanie Carr CATALYST RECOVERY OPERATOR-C Work Phone: [facility] 09-27-2024 08:28-0400 Body weight 59.87 kg Tiffanie Carr CATALYST RECOVERY OPERATOR-C Work Phone: [facility] 09-27-2024 08:28-0400 Diastolic blood pressure 88 mm[Hg] Tiffanie Carr CATALYST RECOVERY OPERATOR-C Work Phone: [facility] 09-27-2024 08:28-0400 Heart rate 83 /min Tiffanie Carr CATALYST RECOVERY OPERATOR-C Work Phone: [facility] 09-27-2024 08:28-0400 Respiratory rate 18 /min Tiffanie Bruno CATALYST RECOVERY OPERATOR-C Work Phone: [facility] 09-27-2024 08:28-0400 SaO2% (BldA) [Mass fraction] 97 % Tiffanie Quinner CATALYST RECOVERY OPERATOR-C Work Phone: [facility] 09-27-2024 08:28-0400 Systolic blood pressure 142 mm[Hg] Tiffanie Carr CATALYST RECOVERY OPERATOR-C Work Phone: [facility] 08-11-2024 08:50-0400 Body temperature 97.8 [degF] Dr. Spenser Sanchez MD Work Phone: [facility] 08-11-2024 08:50-0400 Diastolic blood pressure 73 mm[Hg] Dr. Spenser Sanchez MD Work Phone: [facility] 08-11-2024 08:50-0400 Heart rate 94 /min Dr. Spenser Sanchez MD Work Phone: [facility] 08-11-2024 08:50-0400 Respiratory rate 18 /min Dr. Spenser Sanchez MD Work Phone: [facility] 08-11-2024 08:50-0400 SaO2% (BldA) [Mass fraction] 97 % Dr. Spenser Sanchez MD Work Phone: [facility] 08-11-2024 08:50-0400 Systolic blood pressure 139 mm[Hg] Dr. Spenser Sanchez MD Work Phone: [facility] 08-11-2024 03:09-0400 Inhaled oxygen flow rate 3 L/min Dr. Spenser Sanchez MD Work Phone: [facility] 08-10-2024 13:17-0400 Body height 170.[address] Spenser Sanchez MD Work Phone: [facility] 08-10-2024 13:17-0400 Body weight 60.[address] Spenser Sanchez MD Work Phone: [facility] 08-09-2024 19:50-0400 Body mass index (BMI) [Ratio] 21 kg/m2 Dr. Spenser Sanchez MD Work Phone: [facility] 08-09-2024 18:09-0400 Body temperature 98 [degF] Dr. Spenser Sanchez MD Work Phone: [facility] 08-09-2024 18:09-0400 Diastolic blood pressure 90 mm[Hg] Dr. Spenser Sanchez MD Work Phone: [facility] 08-09-2024 18:09-0400 Heart rate 68 /min Dr. Spenser Sanchez MD Work Phone: [facility] 08-09-2024 18:09-0400 Respiratory rate 14 /min Dr. Spenser Sanchez MD Work Phone: [facility] 08-09-2024 18:09-0400 SaO2% (BldA) [Mass fraction] 96 % Dr. Spenser Sanchez MD Work Phone: [facility] 08-09-2024 18:09-0400 Systolic blood pressure 174 mm[Hg] Dr. Spenser Sanchez MD Work Phone: [facility] 08-09-2024 16:28-0400 Body height 170.[address] Spenser Sanchez MD Work Phone: [facility] 08-09-2024 16:28-0400 Body mass index (BMI) [Ratio] 20.4 kg/m2 Dr. Spenser Sanchez MD Work Phone: [facility] 08-09-2024 16:28-0400 Body weight 59.[address] Spenser Sanchez MD Work Phone: [facility] 08-02-2024 10:13-0400 Body mass index (BMI) [Ratio] 21.7 kg/m2 Dr. Spenser Sanchez MD Work Phone: [facility] 08-02-2024 10:13-0400 Body weight 62.[address] Spenser Sanchez MD Work Phone: [facility] 08-02-2024 10:13-0400 Diastolic blood pressure 80 mm[Hg] Dr. Spenser Sanchez MD Work Phone: [facility] 08-02-2024 10:13-0400 Heart rate 86 /min Dr. Spenser Sanchez MD Work Phone: [facility] 08-02-2024 10:13-0400 Respiratory rate 20 /min Dr. Spenser Sanchez MD Work Phone: [facility] 08-02-2024 10:13-0400 SaO2% (BldA) [Mass fraction] 95 % Dr. Spenser Sanchez MD Work Phone: [facility] 08-02-2024 10:13-0400 Systolic blood pressure 144 mm[Hg] Dr. Spenser Sanchez MD Work Phone: [facility] 07-28-2024 14:51-0400 Body temperature 98.2 [degF] Dr. Spenser Sanchez MD Work Phone: [facility] 07-28-2024 14:51-0400 Diastolic blood pressure 90 mm[Hg] Dr. Spenser Sanchez MD Work Phone: [facility] 07-28-2024 14:51-0400 Heart rate 102 /min Dr. Spenser Sanchez MD Work Phone: [facility] 07-28-2024 14:51-0400 Respiratory rate 16 /min Dr. Spenser Sanchez MD Work Phone: [facility] 07-28-2024 14:51-0400 SaO2% (BldA) [Mass fraction] 93 % Dr. Spenser Sanchez MD Work Phone: [facility] 07-28-2024 14:51-0400 Systolic blood pressure 151 mm[Hg] Dr. Spenser Sanchez MD Work Phone: [facility] 07-28-2024 12:13-0400 Body height 170.[address] Spenser Sanchez MD Work Phone: [facility] 07-28-2024 12:13-0400 Body weight 60.[address] Spenser Sanchez MD Work Phone: [facility] 07-28-2024 06:00-0400 Body mass index (BMI) [Ratio] 20.8 kg/m2 Dr. Spenser Sanchez MD Work Phone: [facility] 07-28-2024 04:14-0400 Inhaled oxygen flow rate 3 L/min Dr. Spenser Sanchez MD Work Phone: [facility] 07-27-2024 15:43-0400 Body temperature 97.3 [degF] Dr. Spenser Sanchez MD Work Phone: [facility] 07-27-2024 15:43-0400 Diastolic blood pressure 78 mm[Hg] Dr. Spenser Sanchez MD Work Phone: [facility] 07-27-2024 15:43-0400 Heart rate 78 /min Dr. Spenser Sanchez MD Work Phone: [facility] 07-27-2024 15:43-0400 Respiratory rate 16 /min Dr. Spenser Sanchez MD Work Phone: [facility] 07-27-2024 15:43-0400 SaO2% (BldA) [Mass fraction] 98 % Dr. Spenser Sanchez MD Work Phone: [facility] 07-27-2024 15:43-0400 Systolic blood pressure 146 mm[Hg] Dr. Spenser Sanchez MD Work Phone: [facility] 07-27-2024 09:43-0400 Body height 170.[address] Spenser Sanchez MD Work Phone: [facility] 07-27-2024 09:43-0400 Body mass index (BMI) [Ratio] 22.5 kg/m2 Dr. Spenser Sanchez MD Work Phone: [facility] 07-27-2024 09:43-0400 Body weight 65.[address] Spenser Sanchez MD Work Phone: [facility] 07-18-2024 15:30-0400 Body temperature 99 [degF] Dr. Spenser Sanchez MD Work Phone: [facility] 07-18-2024 15:30-0400 Diastolic blood pressure 80 mm[Hg] Dr. Spenser Sanchez MD Work Phone: [facility] 07-18-2024 15:30-0400 Heart rate 68 /min Dr. Spenser Sanchez MD Work Phone: [facility] 07-18-2024 15:30-0400 Respiratory rate 18 /min Dr. Spenser Sanchez MD Work Phone: [facility] 07-18-2024 15:30-0400 SaO2% (BldA) [Mass fraction] 95 % Dr. Spenser Sanchez MD Work Phone: [facility] 07-18-2024 15:30-0400 Systolic blood pressure 157 mm[Hg] Dr. Spenser Sanchez MD Work Phone: [facility] 07-18-2024 12:38-0400 Inhaled oxygen flow rate 3 L/min Dr. Spenser Sanchez MD Work Phone: [facility] 07-18-2024 12:21-0400 Body height 170.[address] Spenser Sanchez MD Work Phone: [facility] 07-18-2024 12:21-0400 Body mass index (BMI) [Ratio] 21.1 kg/m2 Dr. Spenser Sanchez MD Work Phone: [facility] 07-18-2024 12:21-0400 Body weight 61.[address] Spenser Sanchez MD Work Phone: [facility] 06-14-2024 08:22-0500 Body mass index (BMI) [Ratio] 22.2 kg/m2 Dr. Spenser Sanchez MD Work Phone: [facility] 06-14-2024 08:22-0500 Body temperature 96.1 [degF] Dr. Spenser Sanchez MD Work Phone: [facility] 06-14-2024 08:22-0500 Body weight 64.[address] Spenser Sanchez MD Work Phone: [facility] 06-14-2024 08:22-0500 Diastolic blood pressure 80 mm[Hg] Dr. Spenser Sanchez MD Work Phone: [facility] 06-14-2024 08:22-0500 Heart rate 84 /min Dr. Spenser Sanchez MD Work Phone: [facility] 06-14-2024 08:22-0500 Respiratory rate 18 /min Dr. Spenser Sanchez MD Work Phone: [facility] 06-14-2024 08:22-0500 SaO2% (BldA) [Mass fraction] 97 % Dr. Spenser Sanchez MD Work Phone: [facility] 06-14-2024 08:22-0500 Systolic blood pressure 149 mm[Hg] Dr. Spenser Sanchez MD Work Phone: [facility] 05-11-2024 11:17-0500 Body temperature 97.7 [degF] Dr. Spenser Sanchez MD Work Phone: [facility] 05-11-2024 11:17-0500 Body weight 65.[address] Spenser Sanchez MD Work Phone: [facility] 05-11-2024 11:17-0500 Diastolic blood pressure 92 mm[Hg] Dr. Spenser Sanchez MD Work Phone: [facility] 05-11-2024 11:17-0500 Heart rate 103 /min Dr. Spenser Sanchez MD Work Phone: [facility] 05-11-2024 11:17-0500 Respiratory rate 16 /min Dr. Spenser Sanchez MD Work Phone: [facility] 05-11-2024 11:17-0500 SaO2% (BldA) [Mass fraction] 92 % Dr. Spenser Sanchez MD Work Phone: [facility] 05-11-2024 11:17-0500 Systolic blood pressure 152 mm[Hg] Dr. Spenser Sanchez MD Work Phone: [facility] 04-30-2024 11:43-0500 Diastolic blood pressure 109 mm[Hg] Dr. Spenser Sanchez MD Work Phone: [facility] 04-30-2024 11:43-0500 Heart rate 84 /min Dr. Spenser Sanchez MD Work Phone: [facility] 04-30-2024 11:43-0500 Respiratory rate 16 /min Dr. Spenser Sanchez MD Work Phone: [facility] 04-30-2024 11:43-0500 SaO2% (BldA) [Mass fraction] 95 % Dr. Spenser Sanhcez MD Work Phone: [facility] 04-30-2024 11:43-0500 Systolic blood pressure 159 mm[Hg] Dr. Spenser Sanchez MD Work Phone: [facility] 04-30-2024 10:07-0500 Body mass index (BMI) [Ratio] 22.1 kg/m2 Dr. Spenser Sanchez MD Work Phone: [facility] 04-30-2024 10:07-0500 Body temperature 98.1 [degF] Dr. Spenser Sanchez MD Work Phone: [facility] 04-30-2024 10:07-0500 Body weight 64.[address] Spenser Sanchez MD Work Phone: [facility] 04-21-2024 09:28-0500 Heart rate 114 /min Dr. Spenser Sanchez MD Work Phone: [facility] 04-21-2024 09:28-0500 SaO2% (BldA) [Mass fraction] 95 % Dr. Spenser Sanchez MD Work Phone: [facility] 04-21-2024 09:22-0500 Body temperature 95.1 [degF] Dr. Spenser Sanchez MD Work Phone: [facility] 04-21-2024 09:22-0500 Body weight 62.[address] Spenser Sanchez MD Work Phone: [facility] 04-21-2024 09:22-0500 Diastolic blood pressure 80 mm[Hg] Dr. Spenser Sanchez MD Work Phone: [facility] 04-21-2024 09:22-0500 Respiratory rate 20 /min Dr. Spenser Sanchez MD Work Phone: [facility] 04-21-2024 09:22-0500 Systolic blood pressure 172 mm[Hg] Dr. Spenser Sanchez MD Work Phone: [facility] 04-19-2024 12:57-0500 Body mass index (BMI) [Ratio] 21.9 kg/m2 Dr. Spenser Sanchez MD Work Phone: [facility] 04-19-2024 12:57-0500 Body temperature 97.9 [degF] Dr. Spenser Sanchez MD Work Phone: [facility] 04-19-2024 12:57-0500 Body weight 63.[address] Spenser Sanchez MD Work Phone: [facility] 04-19-2024 12:57-0500 Diastolic blood pressure 80 mm[Hg] Dr. Spenser Sanchez MD Work Phone: [facility] 04-19-2024 12:57-0500 Heart rate 100 /min Dr. Spenser Sanchez MD Work Phone: [facility] 04-19-2024 12:57-0500 Respiratory rate 16 /min Dr. Spenser Sanchez MD Work Phone: [facility] 04-19-2024 12:57-0500 SaO2% (BldA) [Mass fraction] 95 % Dr. Spenser Sanchez MD Work Phone: [facility] 04-19-2024 12:57-0500 Systolic blood pressure 138 mm[Hg] Dr. Spenser Sanchez MD Work Phone: [facility] 04-11-2024 17:00-0500 Body temperature 97.8 [degF] Dr. Spenser Sanchez MD Work Phone: [facility] 04-11-2024 17:00-0500 Diastolic blood pressure 62 mm[Hg] Dr. Spenser Sanchez MD Work Phone: [facility] 04-11-2024 17:00-0500 Heart rate 72 /min Dr. Spenser Sanchez MD Work Phone: [facility] 04-11-2024 17:00-0500 Respiratory rate 15 /min Dr. Spenser Sanchez MD Work Phone: [facility] 04-11-2024 17:00-0500 SaO2% (BldA) [Mass fraction] 98 % Dr. Spenser Sanchez MD Work Phone: [facility] 04-11-2024 17:00-0500 Systolic blood pressure 145 mm[Hg] Dr. Spenser Sanchez MD Work Phone: [facility] 04-11-2024 13:28-0500 Body mass index (BMI) [Ratio] 21.7 kg/m2 Dr. Spenser Sanchez MD Work Phone: [facility] 04-11-2024 13:28-0500 Body weight 62.[address] Spenser Sanchez MD Work Phone: [facility] 03-21-2024 13:40-0500 Body temperature 98.6 [degF] Dr. Spenser Sanchze MD Work Phone: [facility] 03-21-2024 13:40-0500 Body weight 62.[address] Spenser Sanchez MD Work Phone: [facility] 03-21-2024 13:40-0500 Diastolic blood pressure 74 mm[Hg] Dr. Spenser Sanchez MD Work Phone: [facility] 03-21-2024 13:40-0500 Heart rate 98 /min Dr. Spenser Sanchez MD Work Phone: [facility] 03-21-2024 13:40-0500 Respiratory rate 18 /min Dr. Spenser Sanchez MD Work Phone: [facility] 03-21-2024 13:40-0500 SaO2% (BldA) [Mass fraction] 95 % Dr. Spenser Sanchez MD Work Phone: [facility] 03-21-2024 13:40-0500 Systolic blood pressure 132 mm[Hg] Dr. Spenser Sanchez MD Work Phone: [facility] 08-03-2023 13:57-0400 Body height 170.[address] Spenser Sanchez Work Phone: [facility] 08-03-2023 13:57-0400 Body mass index (BMI) [Ratio] 23 kg/m2 Dr. Spenser Sanchez Work Phone: [facility] 08-03-2023 13:57-0400 Body weight 66.[address] Spenser Sanchez Work Phone: [facility] 08-03-2023 13:57-0400 Diastolic blood pressure 69 mm[Hg] Dr. Spenser Sanchez Work Phone: [facility] 08-03-2023 13:57-0400 Heart rate 93 /min Dr. Spenser Sanchez Work Phone: [facility] 08-03-2023 13:57-0400 Respiratory rate 18 /min Dr. Spenser Sanchez Work Phone: [facility] 08-03-2023 13:57-0400 SaO2% (BldA) [Mass fraction] 94 % Dr. Spenser Sanchez Work Phone: [facility] 08-03-2023 13:57-0400 Systolic blood pressure 106 mm[Hg] Dr. Spenser Sanchez Work Phone: [facility] 05-12-2023 08:17-0500 Body height 170.[address] Spenser Sanchez Work Phone: [facility] 05-12-2023 08:17-0500 Body mass index (BMI) [Ratio] 22.7 kg/m2 Dr. Spenser Sanchez Work Phone: [facility] 05-12-2023 08:17-0500 Body temperature 94.2 [degF] Dr. Spenser Sanchez Work Phone: [facility] 05-12-2023 08:17-0500 Body weight 65.[address] Spenser Sanchez Work Phone: [facility] 05-12-2023 08:17-0500 Diastolic blood pressure 78 mm[Hg] Dr. Spenser Sanchez Work Phone: [facility] 05-12-2023 08:17-0500 Heart rate 86 /min Dr. Spenser Sanchez Work Phone: [facility] 05-12-2023 08:17-0500 Respiratory rate 18 /min Dr. Spenser Sanchez Work Phone: [facility] 05-12-2023 08:17-0500 SaO2% (BldA) [Mass fraction] 96 % Dr. Spenser Sanchez Work Phone: [facility] 05-12-2023 08:17-0500 Systolic blood pressure 137 mm[Hg] Dr. Spenser Sanchez Work Phone: [facility] 05-10-2023 09:35-0500 Body height 170.[address] Spenser Sanchez Work Phone: [facility] 05-10-2023 09:35-0500 Body mass index (BMI) [Ratio] 23.4 kg/m2 Dr. Spenser Sanchez Work Phone: [facility] 05-10-2023 09:35-0500 Body temperature 96 [degF] Dr. Spenser Sanchez Work Phone: [facility] 05-10-2023 09:35-0500 Body weight 67.[address] Spenser Sanchez Work Phone: [facility] 05-10-2023 09:35-0500 Diastolic blood pressure 75 mm[Hg] Dr. Spenser Sanchez Work Phone: [facility] 05-10-2023 09:35-0500 Heart rate 87 /min Dr. Spenser Sanchez Work Phone: [facility] 05-10-2023 09:35-0500 Respiratory rate 20 /min Dr. Spenser Sanchez Work Phone: [facility] 05-10-2023 09:35-0500 SaO2% (BldA) [Mass fraction] 91 % Dr. Spenser Sanchez Work Phone: [facility] 05-10-2023 09:35-0500 Systolic blood pressure 149 mm[Hg] Dr. Spenser Sanchez Work Phone: [facility] 04-19-2023 13:04-0500 Body height 170.[address] Spenser Sanchez Work Phone: [facility] 04-19-2023 13:04-0500 Body mass index (BMI) [Ratio] 22.8 kg/m2 Dr. Spenser Sanchez Work Phone: [facility] 04-19-2023 13:04-0500 Body temperature 97.9 [degF] Dr. Spenser Sanchez Work Phone: [facility] 04-19-2023 13:04-0500 Body weight 66.[address] Spenser Sanchez Work Phone: [facility] 04-19-2023 13:04-0500 Diastolic blood pressure 70 mm[Hg] Dr. Spenser Sanchez Work Phone: [facility] 04-19-2023 13:04-0500 Heart rate 86 /min Dr. Spenser Sanchez Work Phone: [facility] 04-19-2023 13:04-0500 Respiratory rate 14 /min Dr. Spenser Sanchez Work Phone: [facility] 04-19-2023 13:04-0500 SaO2% (BldA) [Mass fraction] 96 % Dr. Spenser Sanchez Work Phone: [facility] 04-19-2023 13:04-0500 Systolic blood pressure 120 mm[Hg] Dr. Spenser Sanchez Work Phone: [facility] 04-13-2023 13:33-0500 Body mass index (BMI) [Ratio] 23.3 kg/m2 Dr. Spenser Sanchez Work Phone: [facility] 04-13-2023 13:33-0500 Body temperature 97.2 [degF] Dr. Spenser Sanchez Work Phone: [facility] 04-13-2023 13:33-0500 Body weight 67.[address] Spenser Sanchez Work Phone: [facility] 04-13-2023 13:33-0500 Diastolic blood pressure 78 mm[Hg] Dr. Spenser Sanchez Work Phone: [facility] 04-13-2023 13:33-0500 Heart rate 81 /min Dr. Spenser Sanchez Work Phone: [facility] 04-13-2023 13:33-0500 Respiratory rate 16 /min Dr. Spenser Sanchez Work Phone: [facility] 04-13-2023 13:33-0500 SaO2% (BldA) [Mass fraction] 93 % Dr. Spenser Sanchez Work Phone: [facility] 04-13-2023 13:33-0500 Systolic blood pressure 144 mm[Hg] Dr. Spenser Sanchez Work Phone: [facility] 03-16-2023 14:54-0500 Body mass index (BMI) [Ratio] 23 kg/m2 Dr. Spenser Sanchez Work Phone: [facility] 03-16-2023 14:54-0500 Body temperature 97 [degF] Dr. Spenser Sanchez Work Phone: [facility] 03-16-2023 14:54-0500 Body weight 66.[address] Spenser Sanchez Work Phone: [facility] 03-16-2023 14:54-0500 Diastolic blood pressure 73 mm[Hg] Dr. Spenser Sanchez Work Phone: [facility] 03-16-2023 14:54-0500 Heart rate 77 /min Dr. Spenser Sanchez Work Phone: [facility] 03-16-2023 14:54-0500 Respiratory rate 16 /min Dr. Spenser Sanchez Work Phone: [facility] 03-16-2023 14:54-0500 SaO2% (BldA) [Mass fraction] 93 % Dr. Spenser Sanchez Work Phone: [facility] 03-16-2023 14:54-0500 Systolic blood pressure 169 mm[Hg] Dr. Spenser Sanchez Work Phone: [facility] 03-09-2023 14:54-0500 Body mass index (BMI) [Ratio] 23.2 kg/m2 Dr. Spenser Sanchez Work Phone: [facility] 03-09-2023 14:54-0500 Body temperature 97.2 [degF] Dr. Spenser Sanchez Work Phone: [facility] 03-09-2023 14:54-0500 Body weight 67.[address] Spenser Sanchez Work Phone: [facility] 03-09-2023 14:54-0500 Diastolic blood pressure 82 mm[Hg] Dr. Spenser Sanchez Work Phone: [facility] 03-09-2023 14:54-0500 Heart rate 73 /min Dr. Spenser Sanchez Work Phone: [facility] 03-09-2023 14:54-0500 Respiratory rate 16 /min Dr. Spenser Sanchez Work Phone: [facility] 03-09-2023 14:54-0500 SaO2% (BldA) [Mass fraction] 95 % Dr. Spenser Sancehz Work Phone: [facility] 03-09-2023 14:54-0500 Systolic blood pressure 139 mm[Hg] Dr. Spenser Sanchez Work Phone: [facility] 03-02-2023 14:57-0400 Body mass index (BMI) [Ratio] 23.2 kg/m2 Dr. Spenser Sanchez Work Phone: [facility] 03-02-2023 14:57-0400 Body temperature 97.4 [degF] Dr. Spenser Sanchez Work Phone: [facility] 03-02-2023 14:57-0400 Body weight 67.[address] Spenser Sanchez Work Phone: [facility] 03-02-2023 14:57-0400 Diastolic blood pressure 79 mm[Hg] Dr. Spenser Sanchez Work Phone: [facility] 03-02-2023 14:57-0400 Heart rate 88 /min Dr. Spenser Sanchez Work Phone: [facility] 03-02-2023 14:57-0400 Respiratory rate 18 /min Dr. Spenser Sanchez Work Phone: [facility] 03-02-2023 14:57-0400 SaO2% (BldA) [Mass fraction] 95 % Dr. Spenser Sanchez Work Phone: [facility] 03-02-2023 14:57-0400 Systolic blood pressure 172 mm[Hg] Dr. Spenser Sanchez Work Phone: [facility] 02-23-2023 14:56-0400 Body mass index (BMI) [Ratio] 22.7 kg/m2 Dr. Spenser Sanchez Work Phone: [facility] 02-23-2023 14:56-0400 Body temperature 97.2 [degF] Dr. Spenser Sanchez Work Phone: [facility] 02-23-2023 14:56-0400 Body weight 65.[address] Spenser Sanchez Work Phone: [facility] 02-23-2023 14:56-0400 Diastolic blood pressure 83 mm[Hg] Dr. Spenser Sanchez Work Phone: [facility] 02-23-2023 14:56-0400 Heart rate 72 /min Dr. Spenser Sanchez Work Phone: [facility] 02-23-2023 14:56-0400 Respiratory rate 16 /min Dr. Spenser Sanchez Work Phone: [facility] 02-23-2023 14:56-0400 SaO2% (BldA) [Mass fraction] 94 % Dr. Spenser Sanchez Work Phone: [facility] 02-23-2023 14:56-0400 Systolic blood pressure 171 mm[Hg] Dr. Spenser Sanchez Work Phone: [facility] 02-16-2023 12:08-0400 Body height 170.[address] Spenser Sanchez Work Phone: [facility] 02-16-2023 12:08-0400 Body mass index (BMI) [Ratio] 22.7 kg/m2 Dr. Spenser Sanchez Work Phone: [facility] 02-16-2023 12:08-0400 Body temperature 97.8 [degF] Dr. Spenser Sanchez Work Phone: [facility] 02-16-2023 12:08-0400 Body weight 65.[address] Spenser Sanchez Work Phone: [facility] 02-16-2023 12:08-0400 Diastolic blood pressure 71 mm[Hg] Dr. Spenser Sanchez Work Phone: [facility] 02-16-2023 12:08-0400 Heart rate 95 /min Dr. Spenser Sanchez Work Phone: [facility] 02-16-2023 12:08-0400 Respiratory rate 20 /min Dr. Spenser Sanchez Work Phone: [facility] 02-16-2023 12:08-0400 SaO2% (BldA) [Mass fraction] 91 % Dr. Spenser Sanchez Work Phone: [facility] 02-16-2023 12:08-0400 Systolic blood pressure 147 mm[Hg] Dr. Spenser Sanchez Work Phone: [facility] 01-12-2023 14:24-0400 Body mass index (BMI) [Ratio] 23.1 kg/m2 Dr. Spenser Sanchez Work Phone: [facility] 01-12-2023 14:24-0400 Body weight 67.[address] Spenser Sanchez Work Phone: [facility] 01-12-2023 14:24-0400 Diastolic blood pressure 73 mm[Hg] Dr. Spenser Sanchez Work Phone: [facility] 01-12-2023 14:24-0400 Heart rate 83 /min Dr. Spenser Sanchez Work Phone: [facility] 01-12-2023 14:24-0400 Respiratory rate 20 /min Dr. Spenser Sanchez Work Phone: [facility] 01-12-2023 14:24-0400 Systolic blood pressure 139 mm[Hg] Dr. Spenser Sanchez Work Phone: [facility] 12-22-2022 13:33-0400 Body mass index (BMI) [Ratio] 22.8 kg/m2 Dr. Spenser Sanchez Work Phone: [facility] 12-22-2022 13:33-0400 Body temperature 97 [degF] Dr. Spenser Sanchez Work Phone: [facility] 12-22-2022 13:33-0400 Body weight 66.[address] Spenser Sanchez Work Phone: [facility] 12-22-2022 13:33-0400 Diastolic blood pressure 78 mm[Hg] Dr. Spenser Sanchez Work Phone: [facility] 12-22-2022 13:33-0400 Heart rate 90 /min Dr. Spenser Sanchez Work Phone: [facility] 12-22-2022 13:33-0400 Respiratory rate 18 /min Dr. Spenser Sanchez Work Phone: [facility] 12-22-2022 13:33-0400 SaO2% (BldA) [Mass fraction] 93 % Dr. Spenser Sanchez Work Phone: [facility] 12-22-2022 13:33-0400 Systolic blood pressure 143 mm[Hg] Dr. Spenser Sanchez Work Phone: [facility] 12-18-2022 08:29-0400 Body height 170.[address] Spenser Sanchez Work Phone: [facility] 12-18-2022 08:29-0400 Body mass index (BMI) [Ratio] 23 kg/m2 Dr. Spenser Sanchez Work Phone: [facility] 12-18-2022 08:29-0400 Body weight 66.[address] Spenser Sanchez Work Phone: [facility] 12-18-2022 08:29-0400 Diastolic blood pressure 78 mm[Hg] Dr. Spenser Sanchez Work Phone: [facility] 12-18-2022 08:29-0400 Heart rate 86 /min Dr. Spenser Sanchez Work Phone: [facility] 12-18-2022 08:29-0400 Respiratory rate 18 /min Dr. Spenser Sanchez Work Phone: [facility] 12-18-2022 08:29-0400 SaO2% (BldA) [Mass fraction] 96 % Dr. Spenser Sanchez Work Phone: [facility] 12-18-2022 08:29-0400 Systolic blood pressure 138 mm[Hg] Dr. Spenser Sanchez Work Phone: [facility] 12-07-2022 14:23-0400 Body mass index (BMI) [Ratio] 22.7 kg/m2 Dr. Spenser Sanchez Work Phone: [facility] 12-07-2022 14:23-0400 Body temperature 97 [degF] Dr. Spenser Sanchez Work Phone: [facility] 12-07-2022 14:23-0400 Body weight 65.[address] Spenser Sanchez Work Phone: [facility] 12-07-2022 14:23-0400 Diastolic blood pressure 74 mm[Hg] Dr. Spenser Sanchez Work Phone: [facility] 12-07-2022 14:23-0400 Heart rate 84 /min Dr. Spenser Sanchez Work Phone: [facility] 12-07-2022 14:23-0400 Respiratory rate 18 /min Dr. Spenser Sanchez Work Phone: [facility] 12-07-2022 14:23-0400 SaO2% (BldA) [Mass fraction] 92 % Dr. Spenser Sanchez Work Phone: [facility] 12-07-2022 14:23-0400 Systolic blood pressure 135 mm[Hg] Dr. Spenser Sanchez Work Phone: [facility] 11-30-2022 15:40-0400 Heart rate 89 /min Dr. Spenser Sanchez Work Phone: [facility] 11-30-2022 15:40-0400 Respiratory rate 21 /min Dr. Spenser Sanchez Work Phone: [facility] 11-30-2022 15:30-0400 Diastolic blood pressure 92 mm[Hg] Dr. Spenser Sanchez Work Phone: [facility] 11-30-2022 15:30-0400 Systolic blood pressure 151 mm[Hg] Dr. Spenser Sanchez Work Phone: [facility] 11-30-2022 11:32-0400 Diastolic blood pressure 85 mm[Hg] Dr. Spenser Sanchez Work Phone: [facility] 11-30-2022 11:32-0400 Heart rate 88 /min Dr. Spenser Sanchez Work Phone: [facility] 11-30-2022 11:32-0400 Respiratory rate 18 /min Dr. Spenser Sanchez Work Phone: [facility] 11-30-2022 11:32-0400 SaO2% (BldA) [Mass fraction] 96 % Dr. Spenser Sanchez Work Phone: [facility] 11-30-2022 11:32-0400 Systolic blood pressure 154 mm[Hg] Dr. Spenser Sanchez Work Phone: [facility] 11-30-2022 11:21-0400 Body height 170.[address] Spenser Sanchez Work Phone: [facility] 11-30-2022 11:21-0400 Body mass index (BMI) [Ratio] 23 kg/m2 Dr. Spenser Sanchez Work Phone: [facility] 11-30-2022 11:21-0400 Body temperature 97 [degF] Dr. Spenser Sanchez Work Phone: [facility] 11-30-2022 11:21-0400 Body weight 66.[address] Spenser Sanchez Work Phone: [facility] 11-27-2022 07:48-0400 Body height 172.[address] Spenser Sanchez Work Phone: [facility] 11-27-2022 07:48-0400 Body weight 66.[address] Spenser Sanchez Work Phone: [facility] 11-26-2022 07:36-0400 Body mass index (BMI) [Ratio] 22.3 kg/m2 Dr. Spenser Sanchez Work Phone: [facility] 11-20-2022 08:26-0400 Body mass index (BMI) [Ratio] 21.7 kg/m2 Dr. Spenser Sanchez Work Phone: [facility] 11-20-2022 08:26-0400 Body weight 66.[address] Spenser Sanchez Work Phone: [facility] 11-20-2022 08:26-0400 Diastolic blood pressure 54 mm[Hg] Dr. Spenser Sanchez Work Phone: [facility] 11-20-2022 08:26-0400 Heart rate 82 /min Dr. Spenser Sanchez Work Phone: [facility] 11-20-2022 08:26-0400 Respiratory rate 16 /min Dr. Spenser Sanchez Work Phone: [facility] 11-20-2022 08:26-0400 Systolic blood pressure 135 mm[Hg] Dr. Spenser Sanchez Work Phone: [facility] 11-16-2022 10:59-0400 Body temperature 98.1 [degF] Dr. Spenser Sanchez Work Phone: [facility] 11-16-2022 10:59-0400 Diastolic blood pressure 78 mm[Hg] Dr. Spenser Sanchez Work Phone: [facility] 11-16-2022 10:59-0400 Heart rate 81 /min Dr. Spenser Sanchez Work Phone: [facility] 11-16-2022 10:59-0400 Respiratory rate 18 /min Dr. Spenser Sanchez Work Phone: [facility] 11-16-2022 10:59-0400 SaO2% (BldA) [Mass fraction] 98 % Dr. Spenser Sanchez Work Phone: [facility] 11-16-2022 10:59-0400 Systolic blood pressure 122 mm[Hg] Dr. Spenser Sanchez Work Phone: [facility] 11-16-2022 05:34-0400 Body mass index (BMI) [Ratio] 21.5 kg/m2 Dr. Spenser Sanchez Work Phone: [facility] 11-16-2022 05:34-0400 Body weight [address] Spenser Sanchez Work Phone: [facility] 11-14-2022 06:29-0400 Body height 175.[address] Spenser Sanchez Work Phone: [facility] 11-14-2022 05:35-0400 Body temperature 97.9 [degF] Dr. Spenser Sanchez Work Phone: [facility] 11-14-2022 05:35-0400 Diastolic blood pressure 69 mm[Hg] Dr. Spenser Sanchez Work Phone: [facility] 11-14-2022 05:35-0400 Heart rate 65 /min Dr. Spenser Sanchez Work Phone: [facility] 11-14-2022 05:35-0400 Respiratory rate 14 /min Dr. Spenser Sanchez Work Phone: [facility] 11-14-2022 05:35-0400 SaO2% (BldA) [Mass fraction] 95 % Dr. Spenser Sanchez Work Phone: [facility] 11-14-2022 05:35-0400 Systolic blood pressure 143 mm[Hg] Dr. Spenser Sanchez Work Phone: [facility] 11-14-2022 02:07-0400 Body height 170.[address] Spenser Sancehz Work Phone: [facility] 11-14-2022 02:07-0400 Body mass index (BMI) [Ratio] 24 kg/m2 Dr. Spenser Sanchez Work Phone: [facility] 11-14-2022 02:07-0400 Body weight 69.[address] Spenser Sanchez Work Phone: [facility] 11-10-2022 06:14-0400 Body mass index (BMI) [Ratio] 23.5 kg/m2 Dr. Spenser Sanchez Work Phone: [facility] 11-10-2022 06:14-0400 Body temperature 97.2 [degF] Dr. Spenser Sanchez Work Phone: [facility] 11-10-2022 06:14-0400 Body weight 68.[address] Spenser Sanchez Work Phone: [facility] 11-10-2022 06:14-0400 Diastolic blood pressure 76 mm[Hg] Dr. Spenser Sanchez Work Phone: [facility] 11-10-2022 06:14-0400 Heart rate 91 /min Dr. Spenser Sanchez Work Phone: [facility] 11-10-2022 06:14-0400 Respiratory rate 18 /min Dr. Spenser Sanchez Work Phone: [facility] 11-10-2022 06:14-0400 SaO2% (BldA) [Mass fraction] 95 % Dr. Spenser Sanchez Work Phone: [facility] 11-10-2022 06:14-0400 Systolic blood pressure 137 mm[Hg] Dr. Spenser Sanchez Work Phone: [facility] 11-01-2022 13:42-0400 Diastolic blood pressure 98 mm[Hg] Dr. Spenser Sanchez Work Phone: [facility] 11-01-2022 13:42-0400 Heart rate 80 /min Dr. Spenser Sanchez Work Phone: [facility] 11-01-2022 13:42-0400 Respiratory rate 18 /min Dr. Spenser Sanchez Work Phone: [facility] 11-01-2022 13:42-0400 SaO2% (BldA) [Mass fraction] 98 % Dr. Spenser Sanchez Work Phone: [facility] 11-01-2022 13:42-0400 Systolic blood pressure 171 mm[Hg] Dr. Spenser Sanchez Work Phone: [facility] 11-01-2022 08:10-0400 Body height 170.[address] Spenser Sanchez Work Phone: [facility] 11-01-2022 08:10-0400 Body mass index (BMI) [Ratio] 23.5 kg/m2 Dr. Spenser Sanchez Work Phone: [facility] 11-01-2022 08:10-0400 Body temperature 97.8 [degF] Dr. Spenser Sanchez Work Phone: [facility] 11-01-2022 08:10-0400 Body weight 68.[address] Spenser Sanchez Work Phone: [facility] 10-26-2022 13:52-0400 Body mass index (BMI) [Ratio] 23.8 kg/m2 Dr. Spenser Sanchez Work Phone: [facility] 10-26-2022 13:52-0400 Body weight 68.[address] Spenser Sanchez Work Phone: [facility] 10-13-2022 16:50-0400 Respiratory rate 18 /min Dr. Spenser Sanchez Work Phone: [facility] 10-13-2022 14:41-0400 Body mass index (BMI) [Ratio] 23.5 kg/m2 Dr. Spenser Sanchez Work Phone: [facility] 10-13-2022 14:41-0400 Body temperature 96.8 [degF] Dr. Spenser Sanchez Work Phone: [facility] 10-13-2022 14:41-0400 Body weight 68.[address] Spenser Sanchez Work Phone: [facility] 10-13-2022 14:41-0400 Diastolic blood pressure 93 mm[Hg] Dr. Spenser Sanchez Work Phone: [facility] 10-13-2022 14:41-0400 Heart rate 89 /min Dr. Spenser Sanchez Work Phone: [facility] 10-13-2022 14:41-0400 SaO2% (BldA) [Mass fraction] 95 % Dr. Spenser Sanchez Work Phone: [facility] 10-13-2022 14:41-0400 Systolic blood pressure 177 mm[Hg] Dr. Spenser Sanchez Work Phone: [facility] 10-07-2022 13:24-0400 Body mass index (BMI) [Ratio] 23.6 kg/m2 Dr. Spenser Sanchez Work Phone: [facility] 10-07-2022 13:24-0400 Body temperature 97.8 [degF] Dr. Spenser Sanchez Work Phone: [facility] 10-07-2022 13:24-0400 Body weight 68.[address] Spenser Sanchez Work Phone: [facility] 10-07-2022 13:24-0400 Diastolic blood pressure 72 mm[Hg] Dr. Spenser Sanchez Work Phone: [facility] 10-07-2022 13:24-0400 Heart rate 81 /min Dr. Spenser Sanchez Work Phone: [facility] 10-07-2022 13:24-0400 Respiratory rate 16 /min Dr. Spenser Sanchez Work Phone: [facility] 10-07-2022 13:24-0400 SaO2% (BldA) [Mass fraction] 97 % Dr. Spenser Sanchez Work Phone: [facility] 10-07-2022 13:24-0400 Systolic blood pressure 138 mm[Hg] Dr. Spenser Sanchez Work Phone: [facility] 08-08-2022 18:09-0400 Heart rate 92 /min Dr. Spenser Sanchez Work Phone: [facility] 08-08-2022 18:09-0400 Respiratory rate 18 /min Dr. Spenser Sanchez Work Phone: [facility] 08-08-2022 18:09-0400 SaO2% (BldA) [Mass fraction] 95 % Dr. Spenser Sanchez Work Phone: [facility] 08-08-2022 17:00-0400 Body temperature 100 [degF] Dr. Spenser Sanchez Work Phone: [facility] 08-08-2022 17:00-0400 Diastolic blood pressure 80 mm[Hg] Dr. Spenser Sanchez Work Phone: [facility] 08-08-2022 17:00-0400 Systolic blood pressure 127 mm[Hg] Dr. Spenser Sanchez Work Phone: [facility] 08-08-2022 14:41-0400 Body height 170.[address] Spenser Sanchez Work Phone: [facility] 08-08-2022 14:41-0400 Body mass index (BMI) [Ratio] 23.2 kg/m2 Dr. Spenser Sanchez Work Phone: [facility] 08-08-2022 14:41-0400 Body weight 67.[address] Spenser Sanchez Work Phone: [facility] 07-31-2022 17:03-0400 Body temperature 97.8 [degF] Dr. Spenser Sacnhez Work Phone: [facility] 07-31-2022 17:03-0400 Diastolic blood pressure 78 mm[Hg] Dr. Spenser Sanchez Work Phone: [facility] 07-31-2022 17:03-0400 Heart rate 78 /min Dr. Spenser Sanchez Work Phone: [facility] 07-31-2022 17:03-0400 Respiratory rate 16 /min Dr. Spenser Sanchez Work Phone: [facility] 07-31-2022 17:03-0400 SaO2% (BldA) [Mass fraction] 99 % Dr. Spenser Sanchez Work Phone: [facility] 07-31-2022 17:03-0400 Systolic blood pressure 126 mm[Hg] Dr. Spenser Sanchez Work Phone: [facility] 07-31-2022 16:16-0400 Body height 170.[address] Spenser Sanchez Work Phone: [facility] 07-31-2022 16:16-0400 Body mass index (BMI) [Ratio] 23.6 kg/m2 Dr. Spenser Sanchez Work Phone: [facility] 07-31-2022 16:16-0400 Body weight 68.[address] Spenser Sanchez Work Phone: [facility] 07-26-2022 13:17-0400 Heart rate 82 /min Dr. Spenser Sanchez Work Phone: [facility] 07-26-2022 13:17-0400 Respiratory rate 20 /min Dr. Spenser Sanchez Work Phone: [facility] 07-26-2022 11:32-0400 Body temperature 98.5 [degF] Dr. Spenser Sanchez Work Phone: [facility] 07-26-2022 11:32-0400 Diastolic blood pressure 81 mm[Hg] Dr. Spenser Sanchez Work Phone: [facility] 07-26-2022 11:32-0400 SaO2% (BldA) [Mass fraction] 94 % Dr. Spenser Sanchez Work Phone: [facility] 07-26-2022 11:32-0400 Systolic blood pressure 143 mm[Hg] Dr. Spenser Sanchez Work Phone: [facility] 07-26-2022 08:31-0400 Inhaled oxygen flow rate 3 L/min Dr. Spenser Sanchez Work Phone: [facility] 07-25-2022 13:06-0400 Body height 170.[address] Spenser Sanchez Work Phone: [facility] 07-25-2022 13:06-0400 Body mass index (BMI) [Ratio] 23.4 kg/m2 Dr. Spenser Sanchez Work Phone: [facility] 07-25-2022 13:06-0400 Body weight 67.[address] Spenser Sanchez Work Phone: [facility] 07-25-2022 12:40-0400 Body temperature 98 [degF] Dr. Spenser Sanchez Work Phone: [facility] 07-25-2022 12:40-0400 Diastolic blood pressure 78 mm[Hg] Dr. Spenser Sanchez Work Phone: [facility] 07-25-2022 12:40-0400 Heart rate 81 /min Dr. Spenser Sanchez Work Phone: [facility] 07-25-2022 12:40-0400 Respiratory rate 14 /min Dr. Spenser Sanchez Work Phone: [facility] 07-25-2022 12:40-0400 SaO2% (BldA) [Mass fraction] 92 % Dr. Spenser Sanchez Work Phone: [facility] 07-25-2022 12:40-0400 Systolic blood pressure 143 mm[Hg] Dr. Spenser Sanchez Work Phone: [facility] 07-25-2022 07:16-0400 Body height 170.[address] Spenser Sanchez Work Phone: [facility] 07-25-2022 07:16-0400 Body mass index (BMI) [Ratio] 21.7 kg/m2 Dr. Spenser Sanchez Work Phone: [facility] 07-25-2022 07:16-0400 Body weight 63.[address] Spenser Sanchez Work Phone: [facility] 07-10-2022 14:26-0500 Body height 170.2 cm Aren Mcarthur PA-C Work Phone: [facility] 07-10-2022 14:26-0500 Body weight 68.04 kg Aren Mcarthur PA-C Work Phone: [facility] 07-10-2022 14:26-0500 Diastolic blood pressure 84 mm[Hg] Aren Mcarthur PA-C Work Phone: [facility] 07-10-2022 14:26-0500 Heart rate 99 /min Aren Mcarthur PA-C Work Phone: [facility] 07-10-2022 14:26-0500 SaO2% (BldA) [Mass fraction] 97 % Aren Mcarthur PA-C Work Phone: [facility] 07-10-2022 14:26-0500 Systolic blood pressure 138 mm[Hg] Aren Mcarthur PA-C Work Phone: [facility] 07-06-2022 13:23-0500 Body height 170.[address] Spenser Sanchez Work Phone: [facility] 07-06-2022 13:23-0500 Body mass index (BMI) [Ratio] 23.1 kg/m2 Dr. Spenser Sanchez Work Phone: [facility] 07-06-2022 13:23-0500 Body temperature 97.2 [degF] Dr. Spenser Sanchez Work Phone: [facility] 07-06-2022 13:23-0500 Body weight 67.[address] Spenser Sanchez Work Phone: [facility] 07-06-2022 13:23-0500 Diastolic blood pressure 88 mm[Hg] Dr. Spenser Sanchez Work Phone: [facility] 07-06-2022 13:23-0500 Heart rate 91 /min Dr. Spenser Sanchez Work Phone: [facility] 07-06-2022 13:23-0500 Respiratory rate 14 /min Dr. Spenser Sanchez Work Phone: [facility] 07-06-2022 13:23-0500 SaO2% (BldA) [Mass fraction] 95 % Dr. Spenser Sanchez Work Phone: [facility] 07-06-2022 13:23-0500 Systolic blood pressure 162 mm[Hg] Dr. Spenser Sanchez Work Phone: [facility] 06-30-2022 14:00-0500 Body mass index (BMI) [Ratio] 23.5 kg/m2 Dr. Spenser Sanchez Work Phone: [facility] 06-30-2022 14:00-0500 Body weight 68.[address] Spenser Sanchez Work Phone: [facility] 06-30-2022 14:00-0500 Diastolic blood pressure 82 mm[Hg] Dr. Spenser Sanchez Work Phone: [facility] 06-30-2022 14:00-0500 Heart rate 81 /min Dr. Spenser Sanchez Work Phone: [facility] 06-30-2022 14:00-0500 Respiratory rate 18 /min Dr. Spenser Sanchez Work Phone: [facility] 06-30-2022 14:00-0500 SaO2% (BldA) [Mass fraction] 94 % Dr. Spenser Sanchez Work Phone: [facility] 06-30-2022 14:00-0500 Systolic blood pressure 148 mm[Hg] Dr. Spenser Sanchez Work Phone: [facility] 06-17-2022 13:20-0500 Body mass index (BMI) [Ratio] 23 kg/m2 Dr. Spenser Sanchez Work Phone: [facility] 06-17-2022 13:20-0500 Body temperature 97.6 [degF] Dr. Spenser Sanchez Work Phone: [facility] 06-17-2022 13:20-0500 Body weight 66.[address] Spenser Sanchez Work Phone: [facility] 06-17-2022 13:20-0500 Diastolic blood pressure 80 mm[Hg] Dr. Spenser Sanchez Work Phone: [facility] 06-17-2022 13:20-0500 Heart rate 75 /min Dr. Spenser Sanchez Work Phone: [facility] 06-17-2022 13:20-0500 Respiratory rate 16 /min Dr. Spenser Sanchez Work Phone: [facility] 06-17-2022 13:20-0500 SaO2% (BldA) [Mass fraction] 97 % Dr. Spenser Sanchez Work Phone: [facility] 06-17-2022 13:20-0500 Systolic blood pressure 142 mm[Hg] Dr. Spenser Sanchez Work Phone: [facility] 05-20-2022 07:08-0500 Body height 170.[address] Spenser Sanchez Work Phone: [facility] 05-20-2022 07:08-0500 Body mass index (BMI) [Ratio] 23.3 kg/m2 Dr. Spenser Sanchez Work Phone: [facility] 05-20-2022 07:08-0500 Body temperature 97.5 [degF] Dr. Spenser Sanchez Work Phone: [facility] 05-20-2022 07:08-0500 Body weight 67.[address] Spenser Sanchez Work Phone: [facility] 05-20-2022 07:08-0500 Diastolic blood pressure 80 mm[Hg] Dr. Spenser Sanchez Work Phone: [facility] 05-20-2022 07:08-0500 Heart rate 79 /min Dr. Spenser Sanchez Work Phone: [facility] 05-20-2022 07:08-0500 Respiratory rate 18 /min Dr. Spenser Sanchez Work Phone: [facility] 05-20-2022 07:08-0500 SaO2% (BldA) [Mass fraction] 97 % Dr. Spenser Sanchez Work Phone: [facility] 05-20-2022 07:08-0500 Systolic blood pressure 145 mm[Hg] Dr. Spenser aSnchez Work Phone: [facility] 04-30-2022 14:10-0500 Body height 170.[address] Spenser Sanchez Work Phone: [facility] Work Phone: 04-30-2022 14:10-0500 Body mass index (BMI) [Ratio] 23.3 kg/m2 Dr. Spenser Sanchez Work Phone: [facility] 04-30-2022 14:10-0500 Body temperature 97.7 [degF] Dr. Spenser Sanchez Work Phone: [facility] 04-30-2022 14:10-0500 Body weight 67.[address] Spenser Sanchez Work Phone: [facility] 04-30-2022 14:10-0500 Diastolic blood pressure 62 mm[Hg] Dr. Spenser Sanchez Work Phone: [facility] 04-30-2022 14:10-0500 Heart rate 77 /min Dr. Spenser Sanchez Work Phone: [facility] 04-30-2022 14:10-0500 Respiratory rate 16 /min Dr. Spenser Sanchez Work Phone: [facility] 04-30-2022 14:10-0500 SaO2% (BldA) [Mass fraction] 97 % Dr. Spenser Sanchez Work Phone: [facility] 04-30-2022 14:10-0500 Systolic blood pressure 122 mm[Hg] Dr. Spenser Sanchez Work Phone: [facility] 03-25-2022 15:38-0500 Body height 170.[address] Spenser Sanchez Work Phone: [facility] Work Phone: 03-25-2022 15:38-0500 Body mass index (BMI) [Ratio] 23.3 kg/m2 Dr. Spenser Sanchez Work Phone: [facility] 03-25-2022 15:38-0500 Body temperature 96.6 [degF] Dr. Spenser Sanchez Work Phone: [facility] 03-25-2022 15:38-0500 Body weight 67.[address] Spenser Sanchez Work Phone: [facility] 03-25-2022 15:38-0500 Diastolic blood pressure 60 mm[Hg] Dr. Spenser Sanchez Work Phone: [facility] 03-25-2022 15:38-0500 Heart rate 84 /min Dr. Spenser Sanchez Work Phone: [facility] 03-25-2022 15:38-0500 Respiratory rate 16 /min Dr. Spenser Sanchez Work Phone: [facility] 03-25-2022 15:38-0500 SaO2% (BldA) [Mass fraction] 96 % Dr. Spenser Sanchez Work Phone: [facility] 03-25-2022 15:38-0500 Systolic blood pressure 130 mm[Hg] Dr. Spenser Sanchez Work Phone: [facility] 12-29-2021 14:35-0400 Body height 170.[address] Spenser Sanchez Work Phone: [facility] Work Phone: 12-29-2021 14:35-0400 Body mass index (BMI) [Ratio] 23.1 kg/m2 Dr. Spenser Sanchez Work Phone: [facility] Work Phone: 12-29-2021 14:35-0400 Body weight 67.[address] Spenser Sanchez Work Phone: [facility] Work Phone: 12-29-2021 14:35-0400 Diastolic blood pressure 57 mm[Hg] Dr. Spenser Sanchez Work Phone: [facility] Work Phone: 12-29-2021 14:35-0400 Heart rate 74 /min Dr. Spenser Sanchez Work Phone: [facility] Work Phone: 12-29-2021 14:35-0400 Respiratory rate 16 /min Dr. Spenser Sanchez Work Phone: [facility] Work Phone: 12-29-2021 14:35-0400 Systolic blood pressure 102 mm[Hg] Dr. Spenser Sanchez Work Phone: [facility] Work Phone: 12-29-2021 13:33-0400 Body mass index (BMI) [Ratio] 23.1 kg/m2 Dr. Spenser Sanchez Work Phone: [facility] Work Phone: 12-29-2021 13:33-0400 Body temperature 96.8 [degF] Dr. Spenser Sanchez Work Phone: [facility] Work Phone: 12-29-2021 13:33-0400 Body weight 67.[address] Spenser Sanchez Work Phone: [facility] Work Phone: 12-29-2021 13:33-0400 Diastolic blood pressure 62 mm[Hg] Dr. Spenser Sanchez Work Phone: [facility] Work Phone: 12-29-2021 13:33-0400 Heart rate 94 /min Dr. Spenser Sanchez Work Phone: [facility] Work Phone: 12-29-2021 13:33-0400 Respiratory rate 16 /min Dr. Spenser Sanchez Work Phone: [facility] Work Phone: 12-29-2021 13:33-0400 SaO2% (BldA) [Mass fraction] 95 % Dr. Spenser Sanchez Work Phone: [facility] Work Phone: 12-29-2021 13:33-0400 Systolic blood pressure 132 mm[Hg] Dr. Spenser Sanchez Work Phone: [facility] Work Phone: 11-11-2021 13:04-0400 Body mass index (BMI) [Ratio] 22.8 kg/m2 Dr. Spenser Sanchez Work Phone: [facility] Work Phone: 11-11-2021 13:04-0400 Body temperature 98.6 [degF] Dr. Spenser Sanchez Work Phone: [facility] Work Phone: 11-11-2021 13:04-0400 Body weight 66.[address] Spenser Sanchez Work Phone: [facility] Work Phone: 11-11-2021 13:04-0400 Diastolic blood pressure 56 mm[Hg] Dr. Spenser Sanchez Work Phone: [facility] Work Phone: 11-11-2021 13:04-0400 Heart rate 64 /min Dr. Spenser Sanchez Work Phone: [facility] Work Phone: 11-11-2021 13:04-0400 Respiratory rate 17 /min Dr. Spenser Sanchez Work Phone: [facility] Work Phone: 11-11-2021 13:04-0400 SaO2% (BldA) [Mass fraction] 97 % Dr. Spenser Sanchez Work Phone: [facility] Work Phone: 11-11-2021 13:04-0400 Systolic blood pressure 124 mm[Hg] Dr. Spenser Sanchez Work Phone: [facility] Work Phone: 09-24-2021 13:31-0400 Body temperature 97.3 [degF] Dr. Spenser Sanchez Work Phone: [facility] Work Phone: 09-24-2021 13:31-0400 Body weight 67.[address] Spenser Sanchez Work Phone: [facility] Work Phone: 09-24-2021 13:31-0400 Diastolic blood pressure 70 mm[Hg] Dr. Spenser Sanchez Work Phone: [facility] Work Phone: 09-24-2021 13:31-0400 Heart rate 79 /min Dr. Spenser Sanchez Work Phone: [facility] Work Phone: 09-24-2021 13:31-0400 Respiratory rate 16 /min Dr. Spenser Sanchez Work Phone: [facility] Work Phone: 09-24-2021 13:31-0400 SaO2% (BldA) [Mass fraction] 96 % Dr. Spenser Sanchez Work Phone: [facility] Work Phone: 09-24-2021 13:31-0400 Systolic blood pressure 113 mm[Hg] Dr. Spenser Sanchez Work Phone: [facility] Work Phone: 06-07-2020 15:00-0500 Pulse (Heart Rate) 73 /min [facility], [place] 06-07-2020 15:00-0500 Respiratory Rate 18 /min [facility], [place] 06-07-2020 14:00-0500 BP Diastolic 73 mm[Hg] [facility] , [place] 06-07-2020 14:00-0500 BP Systolic 132 mm[Hg] [facility] , [place] 06-07-2020 13:30-0500 Pulse Oximetry 95 % [facility] , [place] 06-07-2020 09:56-0500 Body Temperature 97.5 [degF] [facility] [place] 06-07-2020 07:46-0500 BMI (Body Mass Index) 25.53 kg/m2 [facility] [place] 06-07-2020 07:46-0500 Body weight 73.94 kg Denis [facility] , [place] 06-07-2020 07:46-0500 Height 170.2 cm [facility] , [place] 12-16-2016 05:50-0400 BMI (Body Mass Index) 25.47 kg/m2 Lanny Yensho [facility] [facility] Work Phone: 12-16-2016 05:50-0400 Body Temperature 97.4 [degF] Lanny Yensho [facility] Work Phone: 12-16-2016 05:50-0400 BP Diastolic 83 mm[Hg] Lanny Yensho [facility] Work Phone: 12-16-2016 05:50-0400 BP Systolic 137 mm[Hg] Lanny Yensho [facility] Work Phone: 12-16-2016 05:50-0400 Height 173.99 cm Lanny Yensho [facility] Work Phone: 12-16-2016 05:50-0400 Pulse (Heart Rate) 73 /min Lanny Yensho [facility] [place] Work Phone: 12-16-2016 05:50-0400 Respiratory Rate 18 /min Lanny Yensho [facility] Work Phone: 12-16-2016 05:50-0400 Weight 77.11 kg Lanny Yensho [facility] Work Phone: 08-28-2016 14:09-0400 BMI (Body Mass Index) 26.07 kg/m2 Angie Leigh [facility] Work Phone: 08-28-2016 14:09-0400 Body Temperature 97.4 [degF] Angie Leigh [facility] [place] Work Phone: 08-28-2016 14:09-0400 BP Diastolic 90 mm[Hg] Angie Reese [facility] Work Phone: 08-28-2016 14:09-0400 BP Systolic 152 mm[Hg] Angie Reese [facility] Work Phone: 08-28-2016 14:09-0400 Height 173.99 cm Angie Reese [facility] Work Phone: 08-28-2016 14:09-0400 Pulse (Heart Rate) 79 /min Angie Leigh [facility] Work Phone: 08-28-2016 14:09-0400 Pulse Oximetry 97 % Angie Leigh [facility] Work Phone: 08-28-2016 14:09-0400 Respiratory Rate 18 /min Angie Reese [facility] Work Phone: 08-28-2016 14:09-0400 Weight 78.93 kg Angie Leigh [facility] Work Phone: 06-10-2016 11:39-0500 Body Temperature 96.98 [degF] Angie Leigh [facility] Work Phone: 06-10-2016 11:39-0500 BSA (Body Surface Area) 1.96 m2 Angie Leigh [facility] Work Phone: 06-10-2016 11:39-0500 Height 173.99 cm Angie Leigh [facility] Work Phone: 06-10-2016 11:39-0500 Weight 80.91 kg Angie Reese [facility] Work Phone: Encounters Encounter Date Encounter Type Care Provider Facility Start: 09-27-2024 End: 09-27-2024 Monalisa Lyon [employer]-C -[facility] Work Phone: Start: 09-27-2024 End: 09-27-2024 ambulatory Tiffanie Carr [employer]ATOR-C Work Phone: [facility] Work Phone: Start: 08-31-2024 End: 08-31-[address] Spenser Sanchez MD Work Phone: [facility] Work Phone: Start: 08-31-2024 End: 08-31-2024 Monalisa Lyon NP-C -[facility] [place] Work Phone: Start: 08-31-2024 End: 08-31-2024 ambulatory Tiffanie Carr Facility:[facility] Start: 08-11-2024 Dr. Tiki Saldivar MD -[facility] Work Phone: Start: 08-10-2024 ambulatory [facility] [facility] ility:[facility] Start: 08-10-2024 End: 08-11-2024 Evaluation and management of inpatient Dr. Spenser Sanchez MD Work Phone: [facility] Work Phone: Start: 08-10-2024 End: 08-11-2024 Dr. Tiki Saldivar MD -Medical Surgical 3 Work Phone: Start: 08-10-2024 Faraz Gonz[facility]les [facility] Start: 08-10-2024 End: 08-10-2024 ambulatory Christiano Steinberg Facility:[facility] Start: 08-10-2024 End: 08-10-2024 Dr. Christiano Steinberg MD -[facility] Work Phone: Start: 08-09-2024 Faraz Gonzáles DO [facility] Start: 08-09-2024 Dr. Rhys Fontana MD -[facility] Work Phone: Start: 08-09-2024 ambulatory Rhys Fontana Fac ility:[facility] Start: 08-09-[address] Quincy Sanchez MD Work Phone: [facility] Work Phone: Start: 08-09-2024 Dr. Rhys Fontana MD -Medical Surgical 3 Work Phone: Start: 08-03-2024 End: 08-03-2024 Addy QUINNC -Laboratory, [place]ylah hCildress Start: 08-02-2024 End: 08-02-2024 Nanette ROSS -[facility] Work Phone: Start: 08-02-2024 End: 08-03-2024 ambulatory [facility] Facility:[facility] Start: 08-02-2024 End: 08-02-2024 ambulatory [facility] Facility:[facility] Start: 07-28-2024 Dr. Rhys Fontana MD -[facility] Work Phone: Start: 07-27-2024 End: 07-28-2024 ambulatory Rhys Fontana Facility:[facility] Start: 07-27-2024 End: 07-28-[address] Spenser Sanchez MD Work Phone: [facility] Work Phone: Start: 07-27-2024 End: 07-28-2024 Dr. Tiki Saldivar MD -[facility] Work Phone: Start: 07-26-2024 End: 07-26-[address] Spenser Sanchez MD Work Phone: [facility] Work Phone: Start: 07-26-2024 End: 07-26-2024 Nanette QUINNC -Laboratory, TAW[place] Start: 07-26-2024 End: 07-26-2024 ambulatory [facility] Facility:[facility] Start: 07-18-2024 ambulatory [facility] Facility :[facility] Start: 07-18-2024 Faraz Gonzáles DO -[facility] Start: 07-18-2024 End: 07-18-[address] Spenser Sanchez MD Work Phone: 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 -[facility] Work Phone: Start: 06-14-2024 End: 06-14-2024 ambulatory Spenser Sanchez Facility:[facility] Start: 06-06-2024 End: 06-06-2024 AISHA Carr -[facility] Work Phone: Start: 06-06-2024 End: 06-06-2024 ambulatory [facility] Facility:[facility] Start: 05-11-2024 End: 05-11-2024 Tracy Klein ME -[facility] Work Phone: Start: 05-11-2024 End: 05-11-2024 ambulatory Tracy Klein Facility:[facility] Start: 05-04-2024 ambulatory Tracy Klein Facility:[facility] Start: 05-04-2024 End: 05-04-2024 Dr. Heri Williamosn MD -[facility] Start: 05-04-2024 End: 05-04-2024 ambulatory Tracy Klein Facility:[facility] Start: 04-30-2024 End: 04-30-2024 Dr. Faizan Dotson DO -Emergency Department Work Phone: Start: 04-30-2024 End: 04-30-2024 Emergency department patient visit Faizan Dotson Facility:[facility] Start: 04-21-2024 End: 04-21-2024 AISHA Carr -[facility] Work Phone: Start: 04-21-2024 End: 04-21-2024 [facility]ulatory [facility] Start: 04-19-2024 End: 04-19-2024 Dr. Spenser Sanchez MD -[facility] Work Phone: Start: 04-19-2024 End: 04-19-2024 ambulatory [facility] Start: 04-19-2024 End: 04-19-2024 ambulatory [facility] Facility:[facility] Start: 04-11-2024 End: 04-11-2024 Dr. Xavi Almonte MD -Emergency [facility] t Work Phone: Start: 04-11-2024 End: 04-11-2024 Emergency department patient visit [facility] Facility:[facility] Start: 03-23-2024 End: 03-23-2024 Nanette ROSS -Laboratory, BERYL Start: 03-23-2024 End: 03-23-2024 ambulatory [facility] Facility:[facility] Start: 03-21-2024 End: 03-21-2024 Nanette ROSS -[facility] Work Phone: Start: 03-21-2024 End: 03-21-2024 ambulatory [facility] Start: 02-29-2024 End: 02-29-2024 ambulatory [facility] Start: 02-02-2024 ambulatory [facility] Fac[facility] ty:[facility] Start: 01-07-2024 End: 01-07-2024 [facility] Start: 11-15-2023 End: 11-15-2023 ambulatory [facility] Start: 11-09-2023 End: 11-09-2023 [facility] Start: 10-28-2023 End: 10-28-2023 ambulatory Efewongbe Oleghe Facility:[facility] Start: 10-28-2023 End: 10-28-2023 ambulatory [facility]ett[facility] branchbrittney Rappdestiny Facility:[facility] Start: 10-20-2023 End: 10-20-2023 ambulatory Spenser Sanchez Facility:[facility] Start: 10-20-2023 End: 10-20-2023 ambulatory [facility] Facility:[facility] Start: 08-10-2023 End: 08-10-[address] Spenser Sanchez Work Phone: [facility] Work Phone: Start: 08-10-2023 End: 08-10-[address] Spenser Sanchez Work Phone: [facility]-Laboratory Work Phone: Start: 08-03-2023 End: 08-03-[address] Spenser Sanchez Work Phone: [facility] Work Phone: Start: 05-19-2023 End: 05-19-[address] Spenser Sanchez Work Phone: [facility] Work Phone: Start: 05-17-2023 Non-patient / Non-visit Dr. Spenser Sanchez Work Phone: [facility] Start: 05-17-2023 End: 05-17-[address] Spenser Sanchez Work Phone: [facility] Work Phone: Start: 05-17-2023 End: 05-17-[address] Spenser Sanchez Work Phone: [facility]-Cardiovascular Services Work Phone: Start: 05-12-2023 End: 05-12-[address] Spenser Sanchez Work Phone: [facility]-Pulmonary Medicine [facility] Work Phone: Start: 05-10-2023 End: 05-10-[address] Spenser Sanchez Work Phone: [facility] Work Phone: Start: 05-05-2023 Non-patient / Non-visit Dr. Spenser Sanchez Work Phone: [facility] Start: 05-05-2023 End: 05-05-[address] Spenser Sanchez Work Phone: [facility] Work Phone: Start: 05-05-2023 End: 05-05-[address] Spenser Sanchez Work Phone: [facility]-Cardiovascular Services Work Phone: Start: 04-21-2023 End: 04-21-[address] Spenser Sancehz Work Phone: [facility] Work Phone: Start: 04-21-2023 End: 04-21-[address] Spenser Sanchez Work Phone: [facility]-Laboratory Work Phone: Start: 04-19-[address] Spenser Sanchez Work Phone: [facility] Start: 04-19-2023 End: 04-19-2023 Emergency department patient visit Dr. Spenser Sanchez Work Phone: [facility] Start: 04-19-2023 End: 04-19-[address] Spenser Sanchez Work Phone: [facility] Internal Medicine Work Phone: Start: 2023 End: [address] Spenser Sanchez Work Phone: [facility] Work Phone: Start: 2023 End: [address] Spenser Sanchez Work Phone: [facility]-Laboratory Work Phone: Start: 04-14-2023 End: 04-14-[address] Spenser Sanchez Work Phone: [facility] Work Phone: Start: 04-13-2023 End: 04-13-[address] Spenser Sanchez Work Phone: [facility] Work Phone: Start: 03-19-[address] Surya Sanchez Work Phone: [facility]-Radiation Oncology Start: 03-19-2023 Non-patient / Non-visit Dr. Spenser Sanchez Work Phone: [facility] Work Phone: Start: 03-16-2023 End: 03-16-[address] Spenser Sanchez Work Phone: [facility] Work Phone: Start: 03-09-2023 End: 03-09-[address] Spenser Sanchez Work Phone: [facility] Work Phone: Start: 03-02-2023 End: 03-02-[address] Spenser Sanchez Work Phone: [facility] Work Phone: Start: 02-23-2023 End: 02-23-[address] Spenser Sanchez Work Phone: [facility] Work Phone: Start: 02-19-2023 Non-patient / Non-visit Dr. Spenser Sanchez Work Phone: [facility] Start: 02-16-2023 End: 02-16-[address] Spenser Sanchez Work Phone: [facility] Work Phone: Start: 02-11-2023 Non-patient / Non-visit Dr. Spenser Sanchez Work Phone: [facility] Start: 02-11-[address] Surya Sanchez Work Phone: [facility]-Radiation Oncology Start: 02-11-2023 End: 02-11-[address] Spenser Sanchez Work Phone: [facility] Work Phone: Start: 02-11-2023 End: 02-11-[address] Spenser Sanchez Work Phone: [facility] Work Phone: Start: 01-12-2023 End: 01-12-[address] Spenser Sanchez Work Phone: [facility] Work Phone: Start: 12-22-2022 End: 12-22-[address] Spenser Sanchez Work Phone: [facility] Work Phone: Start: 12-18-2022 End: 12-18-[address] Spenser Sanchez Work Phone: [facility] Work Phone: Start: 12-14-2022 End: 12-14-[address] Spenser Sanchez Work Phone: [facility] Work Phone: Start: 12-14-2022 End: 12-14-[address] Spenser Sanchez Work Phone: [facility]-Laboratory Work Phone: Start: 12-07-2022 End: 12-07-[address] Spenser Sanchez Work Phone: [facility] Work Phone: Start: 12-02-2022 Non-patient / Non-visit Dr. Spenser Sanchez Work Phone: [facility] Work Phone: Start: 12-01-2022 Non-patient / Non-visit Dr. Spenser Sanchez Work Phone: [facility] Start: 11-30-2022 End: 11-30-2022 Emergency department patient visit Dr. Spenser Sanchez Work Phone: [facility]-Emergency Department Work Phone: Start: 11-27-2022 End: 11-27-2022 Admission to same day surgery center Dr. Spenser Sanchez Work Phone: [facility]-Keg Raiser/Special Procedures Work Phone: Start: 11-27-2022 End: 11-27-[address] Spenser Sanchez Work Phone: [facility] Work Phone: Start: 11-24-2022 End: 11-24-[address] Spenser Sanchez Work Phone: [facility] Work Phone: Start: 11-24-2022 End: 11-24-[address] Spenser Sanchez Work Phone: [facility]-Laboratory Work Phone: Start: 11-20-2022 End: 11-20-[address] Spenser Sanchez Work Phone: [facility] Work Phone: Start: 11-16-2022 Non-patient / Non-visit Dr. Spenser Sanchez Work Phone: [facility] Work Phone: Start: 11-16-2022 Dr. Spenser Sanchez Work Phone: [facility] Work Phone: Start: 11-16-2022 End: 11-16-2022 Non-patient / Non-visit Dr. Spenser Sanchez Work Phone: [facility] Work Phone: Start: 11-15-2022 Non-patient / Non-visit Dr. Spenser Sanchez Work Phone: [facility] Start: 11-15-2022 Dr. Spenser Sancehz Work Phone: [facility] Start: 11-15-2022 Non-patient / Non-visit Dr. Spenser Sanchez Work Phone: [facility] Work Phone: Start: 11-15-2022 Dr. Spenser Sanchez Work Phone: [facility] Work Phone: Start: 11-14-2022 Non-patient / Non-visit Dr. Spenser Sanchez Work Phone: [facility] Start: 11-14-2022 Dr. Spenser Sanchez Work Phone: [facility] Start: 11-14-2022 End: 11-16-2022 Evaluation and management of inpatient Dr. Spenser Sanchez Work Phone: [facility] Work Phone: Start: 11-14-2022 End: 11-16-2022 Dr. Spenser Sanchez Work Phone: [facility] Work Phone: Start: 11-10-2022 End: 11-10-[address] [facility] Work Phone: Start: 11-10-2022 End: 11-10-2022 Dr. [facility]enser Sanchez [facility] Work Phone: Start: 11-01-2022 End: 11-01-2022 Emergency department patient [facility] Start: 11-01-2022 End: 11-01-2022 Dr. [facility]ens[facility] Start: 10-26-2022 End: 10-26-[address] Spenser Sanchez Work Phone: [facility] Work Phone: Start: 10-26-2022 End: 10-26-2022 Dr. Spenser Sanchez Work Phone: [facility] Work Phone: Start: 10-20-2022 End: 10-20-[address] Spenser Sanchez Work Phone: [facility] Start: 10-20-2022 End: 10-20-2022 Dr. Spenser Sanchez Work Phone: [facility] Start: 10-13-2022 End: 10-13-2022 Emergency department patient visit Dr. Spenser Sanchez Work Phone: [facility]-Emergency Department Work Phone: Start: 10-13-2022 End: 10-13-2022 Dr. Spenser Sanchez Work Phone: [facility]-Emergency Department Work Phone: Start: 10-07-2022 End: 10-07-[address] Spenser Sanchez Work Phone: [facility] Internal Medicine Work Phone: Start: 10-07-2022 End: 10-07-2022 Dr. Spenser Sanchez Work Phone: [facility] Internal Medicine Work Phone: Start: 08-26-2022 End: 08-26-[address] Spenser Sanchez Work Phone: [facility] Work Phone: Start: 08-26-2022 End: 08-26-[address] Spenser Sanchez Work Phone: [facility] Start: 08-26-2022 End: 08-26-2022 Dr. Spenser Sanchez Work Phone: [facility] Work Phone: Start: 08-18-2022 End: 08-18-[address] Spenser Sanchez Work Phone: [facility] Work Phone: Start: 08-18-2022 End: 08-18-[address] Spenser Sanchez Work Phone: [facility] Start: 08-18-2022 End: 08-18-2022 Dr. Spenser Sanchez Work Phone: [facility] Work Phone: Start: 08-13-2022 End: 08-13-[address] Spenser Sanchez Work Phone: [facility] Work Phone: Start: 08-13-2022 End: 08-13-[address] Spenser Sanchez Work Phone: [facility]-Laboratory, Specimen Start: 08-13-2022 End: 08-13-2022 Dr. Spenser Sanchez [facility] Work [facility]: Start: 08-08-2022 End: 08-08-2022 Emergency department patient visit Dr. Spenser Sanchez Work Phone: [facility]-Emergency Department Start: 08-08-2022 End: 08-08-2022 Dr. Spenser Sanchez Work Phone: [facility]-Emergency Department Work Phone: Start: 07-31-2022 End: 07-31-2022 Emergency department patient visit Dr. Spenser Sanchez Work Phone: [facility]-Emergency Department Start: 07-31-2022 End: 07-31-2022 Dr. Spenser Sanchez Work Phone: [facility]-Emergency Department Work Phone: Start: 07-26-2022 Non-patient / Non-visit Dr. Spenser Sanchez Work Phone: [facility] Start: 07-26-2022 Dr. Spenser Sanchez Work Phone: [facility] Work Phone: Start: 07-25-2022 End: 07-26-2022 Evaluation and management of inpatient Dr. Spenser Sanchez Work Phone: [facility] Surgical 3 Start: 07-25-2022 End: 07-26-2022 Dr. Spenser Sanchez Work Phone: [facility] Work Phone: Start: 07-25-2022 Non-patient / Non-visit Dr. Spenser Sanchez Work Phone: [facility] Start: 07-25-2022 Dr. Spenser Sanchez Work Phone: [facility] Work Phone: Start: 07-25-2022 End: 07-26-2022 Evaluation and management of inpatient Dr. Spenser Sanchez Work Phone: [facility] Surgical 3 Start: 07-10-2022 End: 07-11-2022 ambulatory EFEWONGBE B OLEGHE Facility:[facility] Start: 07-10-2022 End: 07-11-2022 ambulatory EFEWONGBE B OLEGHE Facility:[facility] Start: 07-10-2022 End: 07-10-2022 Patient encounter procedure Aren Mcarthur PA-C Work Phone: Urology Comment on above: Elevated prostate sp ecific antigen (PSA) (Primary Dx); Atherosclerosis of coronary artery of [place] heart without angina pectoris, unspecified vessel or lesion type; Personal history of rectal cancer; Chronic obstructive pulmonary disease, unspecified COPD type (HCC) Start: 07-06-2022 End: 07-06-[address] Spenser Sanchez Work Phone: [facility] Work Phone: Start: 07-06-2022 End: 07-06-[address] Spenser Sanchez Work Phone: [facility] Internal Medicine Start: 06-30-2022 End: 06-30-[address] Spenser Sanchez Work Phone: [facility] Start: 06-17-2022 End: 06-17-[address] Spenser Sanchez Work Phone: [facility] Internal Medicine Start: 05-20-2022 End: 05-20-[address] Spenser Sanchez [facility] Start: 05-19-2022 End: 05-19-[address] Spenser Sanchez Work Phone: [facility] Work Phone: Start: 05-19-2022 End: 05-19-[address] Spenser Sanchez Work Phone: [facility] Start: 05-06-2022 Non-patient / Non-visit Dr. Spenser Sanchez Work Phone: [facility] Start: 05-06-2022 End: 05-06-[address] Spenser Sanchez Work Phone: [facility] Work Phone: Start: 05-06-2022 End: 05-06-[address] Spenser Sanchez [facility] Start: 05-05-2022 End: 05-05-[address] Spenser Sanchez Work Phone: [facility] Start: 05-01-2022 Non-patient / Non-visit Dr. Spenser Sanchez Work Phone: [facility] Start: 05-01-2022 End: 05-01-[address] Spenser Sanchez Work Phone: [facility] Work Phone: Start: 05-01-2022 End: 05-01-[address] Spenser Sanchez [facility] Start: 04-30-2022 End: 04-30-[address] Spenser Sanchez Work Phone: [facility] Medicine Start: 04-21-2022 End: 04-21-[address] Spenser Sanchez Work Phone: [facility] Medicine Start: 03-25-2022 End: 03-25-[address] Spenser Sanchez Work Phone: [facility] Work Phone: Start: 03-25-2022 End: 03-25-[address] Spenser Sanchez Work Phone: [facility] Internal Medicine Start: 03-06-2022 End: 03-06-[address] Spenser Sanchez [facility] Start: 12-29-2021 End: 12-29-[address] Spenser Sanchez Work Phone: [facility] Start: 12-29-2021 End: 12-29-[address] Spenser Sanchez Work Phone: [facility] Work Phone: Start: 12-29-2021 End: 12-29-[address] Spenser Sanchez Work Phone: [facility] Internal [facility] Start: 11-11-2021 End: 11-11-[address] Spenser Sanchez Work Phone: [facility] Start: 09-24-2021 End: 09-24-[address] Spenser Sanchez Work Phone: [facility] Start: 06-07-2020 End: 06-07-2020 Subsequent hospital visit by physician Denis Rdoriguez Work Phone: [facility] Keg Raiser Comment on above: S/P drug eluting cor onary stent placement (Primary Dx); Coronary artery disease involving [place] coronary artery of [place] heart without angina pectoris Procedures Date Procedure Procedure Detail Performing Clinician Start: 08-31-2024 Assay of prostate specific antigen total Dr. Spenser Sanchez MD Work Phone: Start: 08-31-2024 CT of chest without contrast Dr. Spenser Sanchez MD Work Phone: Start: 08-10-[address] Spenser Sanchez MD Work Phone: Start: 08-10-2024 Blood count smear mcrscp w/mnl difrntl wbc count Dr. Spneser Sanchez MD Work Phone: Start: 08-10-[address] Spenser Sanchez MD Work Phone: Start: 08-10-2024 Mean corpuscular hemoglobin concentration determination Dr. Spenser Sanchez MD Work Phone: Start: 08-10-2024 Nucleated red blood cell count procedure Dr. Spenser Sanchez MD Work Phone: Start: 08-10-2024 Platelet mean volume determination Dr. Spenser Sanchez MD Work Phone: Start: 08-09-2024 Calculation of international normalized ratio Dr. Spenser Sanchez MD Work Phone: Start: 08-02-2024 Blood count smear mcrscp w/mnl difrntl wbc count Dr. Spenser Sanchez MD Work Phone: Start: 08-02-2024 Mean corpuscular hemoglobin concentration determination Dr. Spenser Sanchez MD Work Phone: Start: 08-02-2024 Nucleated red blood cell count procedure Dr. Spenser Sanchez MD Work Phone: Start: 08-02-2024 Platelet mean volume determination Dr. Spenser Sanchez MD Work Phone: Start: 07-28-2024 Blood count smear mcrscp w/mnl difrntl wbc count Dr. Spenser Sanchez MD Work Phone: Start: 07-28-2024 Calculation of international normalized ratio Dr. Spenser Sanchez MD Work Phone: Start: 07-28-[address] Spenser Sanchez MD Work Phone: Start: 07-28-2024 Mean corpuscular hemoglobin concentration determination Dr. Spenser Sanchez MD Work Phone: Start: 07-28-2024 Nucleated red blood cell count procedure Dr. Spenser Sanchez MD Work Phone: Start: 07-28-2024 Platelet mean volume determination Dr. Spenser Sanchez MD Work Phone: Start: 07-27-2024 Carbon dioxide measurement, partial pressure Dr. Spenser Sanchez MD Work Phone: Start: 07-27-2024 Gases blood o2 saturation only direct jenna Dr. Spenser Sanchez MD Work Phone: Start: 07-27-2024 Measurement of partial pressure of oxygen in blood Dr. Spenser Sanchez MD Work Phone: Start: 07-27-[address] Spenser Sanchez MD Work Phone: Start: 07-27-[address] Spenser Sanchez MD Work Phone: Start: 07-27-2024 Venous oxygen saturation measurement Dr. Spenser Sanchez MD Work Phone: Start: 07-27-2024 Measurement of occult blood in stool specimen using immunoassay Dr. Spenser Sanchez MD Work Phone: Start: 07-27-2024 Urine microscopy: red cells Dr. Jodi Sanchez MD Work Phone: Start: 07-27-2024 Urnls dip stick/tablet reagent auto microscopy Dr. Spenser Sanchez MD Work Phone: Start: 07-27-2024 Computed tomography of abdomen and pelvis with intravenous contrast Dr. Spenser Sanchez MD Work Phone: Start: 07-27-[address] Spenser Sanchez MD Work Phone: Start: 07-26-2024 Blood count smear mcrscp w/mnl difrntl wbc count Dr. Spenser Sanchez MD Work Phone: Start: 07-26-2024 Mean corpuscular hemoglobin concentration determination Dr. Spenser Sanchez MD Work Phone: Start: 07-26-2024 Nucleated red blood cell count procedure Dr. Spenser Sanchez MD Work Phone: Start: 07-26-2024 Platelet mean volume determination Dr. Spenser Sanchez MD Work Phone: Start: 07-18-[address] Spenser Sanchez MD Work Phone: Start: 06-06-2024 CT of chest without contrast Dr. Spenser Sanchez MD Work Phone: Start: 04-30-2024 Dr. Spenser Sanchez MD Work Phone: Start: 04-30-2024 Plain chest X-ray Dr. Spenser Sanchez MD Work Phone: Start: 04-11-2024 X-ray of chest, PA and lateral views Dr. Spenser Sanchez MD Work Phone: Start: 02-11-2023 MRI of pelvis with contrast Dr. Jodi Sanchez Work Phone: Start: 11-30-2022 Plain chest X-ray Dr. Spenser Sanchez Work Phone: Start: 11-27-2022 History of placement of stent for coronary artery disease History of coronary artery stent placement Dr. Spenser Sanchez Work Phone: Start: 11-14-2022 Plain chest X-ray Dr. Spenser Sanchez Work Phone: Start: 11-01-2022 Plain chest X-ray Dr. Spenser Sanchez Work Phone: Start: 10-26-2022 Plain x-ray of hand Dr. Spenser Sanchez Work Phone: Start: 10-20-2022 PET study for localization of tumor Dr. Spenser Sanchez Work Phone: Start: 10-13-2022 Plain X-ray of toe Dr. Spenser Sanchez Work Phone: Start: 08-26-2022 Computed tomography of abdomen and pelvis with contrast Dr. Spenser Sanchez Work Phone: Start: 08-18-2022 Radionuclide whole body bone study Dr. Spenser Sanchez Work Phone: Start: 08-08-2022 Plain chest X-ray Dr. Spenser Sanchez Work Phone: Start: 08-08-2022 Bacteria identified in Blood by Culture Dr. Spenser Sanchez Work Phone: Start: 08-08-2022 SARS-CoV-2 & FLU Antigen (Rapid) Dr. Spenser Sanchez Work Phone: Start: 08-08-[address] Spenser Sanchez Work Phone: Start: 08-08-2022 Dr. Spenser Sanchez Work Phone: Start: 07-25-2022 Plain X-ray abdomen Dr. Spenser Sanchez Work Phone: Start: 07-25-2022 CT of abdomen and pelvis without contrast Dr. Spenser Sanchez Work Phone: Start: 07-10-2022 Urnls dip stick/tablet rgnt auto w/o microscopy Aren Mcarthur PA-C Work Phone: Start: 05-19-2022 CT of abdominal vascular structures Dr. Spenser Sanchez Work Phone: Start: 06-07-2020 History of placement of stent for coronary artery disease History of coronary artery stent placement Dr. Spenser Sanchez Work Phone: Start: 06-07-2020 Ecg routine ecg w/least 12 lds w/i&r Zulma Martini Work Phone: Start: 06-07-2020 CARDIAC CATH NURSING LOG 3m Scanning Start: 06-07-2020 End: 06-07-2020 Coagulation time activated Denis patricio Work Phone: Start: 06-07-2020 Catheterization and angiography procedure details panel Denis Rodriguez Work Phone: Start: 06-07-2020 Basic metabolic panel calcium total Denis Rodriguez Work Phone: Start: 01-29-2016 End: 01-30-2016 Referral to respiratory physician Darryn Nat Kessler Work Phone: Start: 09-10-2015 End: 12-11-2015 Follow Up Appt 3 months Monalisa champion CNP Work Phone: Start: 09-01-2015 End: 12-10-2015 Pulmonary Function Test - complete Darryn Kessler [employer] Phone: Start: 09-01-2015 End: 12-10-2015 Pulmonary stress test/simple Darryn Kessler Work Phone: Start: 08-05-2015 End: 08-07-2015 Bacteria sputum culture Monalisa champion CNP Work Phone: Start: 03-12-2015 End: 03-12-2015 Documentation of current medications Darryn Kessler [employer] Phone: Start: 03-12-2015 End: 12-10-2015 Follow Up Appt 6 months Darryn Kessler [employer] Phone: Start: 09-11-2014 End: 09-12-2014 Documentation of current medications Darryn Kessler [employer] Phone: Start: 09-11-2014 End: 12-10-2015 Follow Up Appt 6 months Darryn Kessler [employer] Phone: Start: 06-12-2014 End: 12-10-2015 Follow Up Appt 3 months Darryn Kessler [employer] Phone: Start: 06-12-2014 End: 12-10-2015 Pulmonary Fuction Test - complete Darryn Kessler Work Phone: Start: 06-12-2014 End: 12-10-2015 Pulmonary stress test/simple Darryn Kessler Work Phone: Bacteria identified in Blood by Culture Dr. Spenser Sanchez Work Phone: History of repair of inguinal hernia History of left inguinal hernia repair Dr. Spenser Sanchez Work Phone: Urine culture Dr. Spenser Sanchez Work Phone: Plan of Treatment Date Care Activity Detail Author Start: 01-30-2029 DTaP/Tdap/Td vaccine (3 - Td) DTaP/Tdap/Td vaccine (3 - Td) [place], [place] Start: 10-18-2024 ambulatory Facility:[facility] Start: 08-11-2024 Patient discharge [facility] Start: 08-10-2024 Admission procedure [facility] Start: 08-09-2024 Following clinical p athway protocol [facility] Start: 08-09-2024 Ambulation without limitation [facility] Start: 08-09-2024 Assessment of risk o f venous thromboembolism [facility] Start: 08-09-2024 Inhalation therapy procedure [facility] Start: 08-09-2024 Insertion of cathete r into peripheral vein [facility] Start: 08-09-2024 Providing care accor ding to standard [facility] Start: 08-09-2024 Referral to gastroen terology service [facility] Start: 08-09-2024 [facility] Start: 08-09-2024 Verification routine [facility] Start: 08-09-2024 Admission procedure [facility] Start: 08-09-2024 Hospital admission, emergency, from emergency room, medical nature [facility] Start: 08-09-2024 [facility] Start: 08-09-2024 Patient referral to dietitian [facility] Start: 08-09-2024 [facility] Start: 07-28-2024 Patient discharge [facility] Start: 07-28-2024 Oxygen therapy [facility] Start: 07-27-2024 End: 07-27-[address] [facility] Start: 07-27-2024 Care regimes management [facility] Start: 07-27-2024 Notification of physician [facility] Start: 07-27-2024 Application of inter mittent pneumatic compression device [facility] Start: 07-27-2024 Following clinical p athway protocol [facility] Start: 07-27-2024 Assessment of risk o f venous thromboembolism [facility] Start: 07-27-2024 Incentive spirometry [facility] Start: 07-27-2024 Insertion of cathete r into peripheral vein [facility] Start: 07-27-2024 Measuring intake and output [facility] Start: 07-27-2024 Providing care accor ding to standard [facility] Start: 07-27-2024 Provision of activit y privileges [facility] Start: 07-27-2024 Referral to service [facility] Start: 07-27-2024 [facility] Start: 07-27-2024 Verification routine [facility] Start: 07-27-2024 Admission procedure [facility] Start: 07-27-2024 Hospital admission, emergency, from emergency room, medical nature [facility] Start: 07-27-2024 Gas panel - Venous blood [facility] Start: 07-27-2024 Consultation [facility] Start: 07-27-2024 Inhalation therapy procedure [facility] Start: 07-27-2024 Patient referral to dietitian [facility] Start: 07-18-2024 Colonoscopy w/biopsy single/multiple [facility] Start: 07-18-2024 Electrocardiographic procedure [facility] Start: 07-18-2024 Patient discharge [facility] Start: 04-30-2024 [facility] Start: 04-11-2024 [facility] Start: 12-01-2022 Patient referral [facility] Work Phone: Start: 11-30-2022 End: 11-30-2022 Electrocardiographic procedure [facility] Start: 11-30-2022 Plain chest X-ray Chest 1 View (Portable) [facility] Start: 11-30-2022 [facility] Start: 11-30-2022 Blood chemistry [facility] Start: 11-30-2022 Brain natriuretic pe ptide measurement [facility] Start: 11-30-2022 [facility] Start: 11-27-2022 Cardiac rehabilitati on - phase [address] [facility] Start: 11-27-2022 Cardiac rehabilitati on - phase [address] [facility] Start: 11-27-2022 Patient discharge [facility] Start: 11-17-2022 Blood chemistry [facility] Start: 11-16-2022 Patient discharge [facility] Start: 11-16-2022 Catheterization of left heart [facility] Start: 11-15-2022 [facility] Start: 11-15-2022 [facility] Start: 11-14-2022 Referral to apron cleaner [facility] Start: 11-14-2022 Following clinical p athway protocol [facility] Start: 11-14-2022 Assessment of risk o f venous thromboembolism [facility] Start: 11-14-2022 Incentive spirometry [facility] Start: 11-14-2022 Inhalation therapy procedure [facility] Start: 11-14-2022 Insertion of cathete r into peripheral vein [facility] Start: 11-14-2022 Introduction of urin festus catheter [facility] Start: 11-14-2022 Measuring intake and output [facility] Start: 11-14-2022 Providing care accor ding to standard [facility] Start: 11-14-2022 Provision of activit y privileges [facility] Start: 11-14-2022 Referral to nursing unit clerk [facility] Start: 11-14-2022 Referral to service [facility] Start: 11-14-2022 Tobacco use cessatio n education [facility] Start: 11-14-2022 [facility] Start: 11-14-2022 Verification routine [facility] Start: 11-14-2022 Electrocardiographic procedure [facility] Start: 11-14-2022 Admission procedure [facility] Start: 11-14-2022 [facility] Start: 11-01-2022 [facility] Start: 08-08-2022 End: 08-08-2022 Blood culture [facility] Start: 08-08-2022 End: 08-08-[address] [facility] Start: 08-03-2022 Blood chemistry [facility] Start: 08-02-[address] [facility] Start: 08-01-20[address] Blood [address] [facility] Start: 07-31-2022 Simple repair scalp/neck/ax/genit/trunk 2.5cm/< [facility] Start: 07-31-2022 Blood chemistry [facility] Start: 07-30-[address] [facility] Start: 07-30-2022 [facility] Start: 07-29-20[address] Blood chemistry [facility] Start: 07-29-2022 [facility] Start: 07-28-[address] [facility] Start: 07-28-2022 [facility] Start: 07-27-[address] [facility] Start: 07-27-2022 [facility] Start: 07-26-2022 Patient discharge [facility] Start: 07-26-2022 [facility] Start: 07-25-2022 Admission procedure [facility] Start: 07-25-2022 Incentive spirometry [facility] Start: 07-25-2022 Assessment of risk o f venous thromboembolism [facility] Start: 07-25-2022 Catheterization of vein [facility] Start: 07-25-2022 Insertion of cathete r into peripheral vein [facility] Start: 07-25-2022 Providing care accor ding to standard [facility] Start: 07-25-2022 Referral to service [facility] Start: 07-25-2022 End: 07-25-[address] [facility] Start: 07-25-2022 Following clinical p athway protocol [facility] Start: 07-25-2022 Inhalation therapy procedure [facility] Start: 05-03-2022 ADVANCE DIRECTIVE DISCUSSION A DVANCE DIRECTIVE DISCUSSION [facility] Start: 05-03-2022 DEPRESSION ASSESSMENT DEPRESSION ASS ESSMENT [facility] Start: 03-03-2022 DIABETES SCREEN DIABETES SCREEN [facility] Start: 06-07-2021 [facility] [place] Start: 06-07-2021 Potassium monitoring Potassium monit [facility] [place] Start: 12-24-2020 COVID-19 VACCINE (5 - Booster for Moderna series) COVID-19 VACCINE (5 - Booster for Moderna series) [facility] Start: 06-17-2020 End: 06-17-2020 Office Visit 06/17/2020 Office Visit Cardiology Zulma Martini, [employer]URAL ELECTR[employer]ICATION ENGINEER - EDUCATIONAL COORDINATOR [address] [address] [phone] [facility] Start: 06-07-2020 End: 06-07-2021 Basic metabolic 2000 panel Basic Metabolic Panel Lab Routine S/P drug eluting coronary stent placement Coronary artery disease involving [place] coronary artery of [place] heart without angina pectoris Expected: 06/07/2020, Expires: 06/07/2021 [place], [place] Comment on above: Expected: 06/07/2020 , Expires: 06/07/2021 Start: 04-29-2020 Shingles Vaccine (2 of 2) Mari gles Vaccine (2 of 2) [place], [place] Start: 01-23-2018 Urine microalbumin profile DTA P,TDAP,TD (3 - Tdap) [facility] Start: 07-01-2017 End: 12-16-2016 Pulmonary Function Test - complete Pulmonary Function Test - complete [facility] Work Phone: Start: 07-01-2017 End: 12-16-2016 Pulmonary stress test/simple Pulmonary stress testing; simple (eg, 6-minute walk) [facility] Work Phone: Start: 06-21-2017 End: 06-21-2017 Appointment [facility] Work Phone: Start: 12-16-2016 End: 12-16-2016 Appointment Appointment [facility] Work Phone: Start: 12-16-2016 End: 12-16-2016 [facility] Work Phone: Start: 12-16-2016 End: 12-16-2016 Follow Up Appt 6 months Follow Up Appt 6 months [facility] Work Phone: Start: 08-28-2016 End: 08-28-2016 Appointment Appointment [facility] Work Phone: Start: 06-10-2016 End: 06-10-2016 [facility] BWDe[facility] Work Phone: Start: 06-10-2016 End: 06-10-2016 Follow Up Appt 6 months Follow Up Appt 6 months [facility] Work Phone: Start: 04-09-2016 Hepatitis B surface antibody level LDL CHOLESTEROL [facility] Start: 01-29-2016 End: 02-03-2016 [facility], [address], [place], [address] [facility] Work Phone: Start: 12-11-2015 End: 12-11-2015 [facility] Work Phone: Start: 12-11-2015 End: 12-11-2015 Follow Up Appt 6 months Follow Up Appt 6 months [facility] Work Phone: Start: 09-10-2015 End: 12-11-2015 Follow Up Appt 3 months Follow Up Appt 3 months [facility] Work Phone: Start: 09-01-2015 End: 12-10-2015 Pulmonary Function Test - complete Pulmonary Function Test - complete [facility] Work Phone: Start: 09-01-2015 End: 12-10-2015 Pulmonary stress test/simple Pulmonary stress testing; simple (eg, 6-minute walk) [facility] Work Phone: Start: 08-05-2015 End: 08-07-2015 Bacteria sputum culture *CUSP - Culture Sputum [facility] Work Phone: Start: 03-12-2015 End: 12-10-2015 Follow Up Appt 6 months Follow Up Appt 6 months [facility] Work Phone: Start: 09-11-2014 End: 12-10-2015 Follow Up Appt 6 months Follow Up Appt 6 months [facility] Work Phone: Start: 06-12-2014 End: 12-10-2015 Follow Up Appt 3 months Follow Up Appt 3 months [facility] Work Phone: Start: 06-12-2014 End: 12-10-2015 Pulmonary Fuction Test - complete Pulmonary Fuction Test - complete [facility] Phone: Start: 06-12-2014 End: 12-10-2015 Pulmonary stress test/simple Pulmonary stress testing; simple (eg, 6-minute walk) [facility] Phone: Start: 05-10-2014 End: 05-10-2014 Diagnostic colonoscopy Colonoscopy [facility] Phone: Start: 08-03-2010 PNEUMOCOCCAL: 65+ (2 - PCV) PN EUMOCOCCAL: 65+ (2 - PCV) [facility] Start: 1994 SHINGRIX VACCINE (1 of 2) MARI GRIX VACCINE (1 of 2) [facility] Start: 1962 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 Anion gap measurement [facility] Bacteria identified in Blood by Culture Blood Culture [facility] Bacteria identified in Urine by Culture Urine Culture [facility] Blood chemistry [facility] BUN/Creatinine ratio [facility] BUN/Creatinine ratio [facility] Calcium [Mass/volume ] in Serum or Plasma [facility] Calcium [Mass/volume ] in Serum or Plasma [facility] Carbon dioxide, tota l [Moles/volume] in Central venous blood [facility] Carbon dioxide, tota l [Moles/volume] in Serum or Plasma [facility] Chloride [Moles/volu me] in Serum or Plasma [facility] Colonoscopy [facility] Continuous pulse oximetry [facility] Creatinine [Mass/vol ume] in Serum or Plasma [facility] Creatinine [Moles/vo lume] in Serum or Plasma [facility] CT Chest WO contrast [facility] CTA Abdominal vessel s WO and W contrast IV [facility] Work Phone: Doppler ultrasonogra phy of aorta [facility] Doppler ultrasonogra phy of aorta [facility] EKG [address] [facility] Comment on above: Daily until disconti nued starting 06/07/2020, 1 completed Glucose [Mass/volume ] in Serum or Plasma [facility] Glucose [Mass/volume ] in Serum or Plasma [facility] Measurement of renal function [facility] Measurement of renal function [facility] Oxygen therapy [Mini [facility] Data Set] Initiate Oxygen Therapy Protocol Res[facility] Care Routine [facility] until [facility]: Daily until disconti nued starting 06/07/2020 Patient Education [facility] Work Phone: Patient referral [facility] Work Phone: Potassium [Moles/vol ume] in Serum or Plasma [facility] Potassium measurement [facility] Procedure [facility] Work Phone: Serum chloride measurement [facility] Sodium [Moles/volume ] in Serum or Plasma [facility] Sodium measurement [facility] Urea nitrogen [Mass/ volume] in Serum or Plasma [facility] Urea nitrogen [Mass/ volume] in Serum or Plasma [facility] US Carotid arteries [facility] Immunizations Immunization Date Immunization Notes Care Provider Fa vijay 07-31-2022 tetanus toxoid, redu debora diphtheria toxoid, and acellular pertussis vaccine, adsorbed Dr. Spenser Sanchez Work Phone: [facility] 03-06-2022 influenza, injectabl e, quadrivalent, preservative free Dr. Spenser Sanchez Work Phone: [facility] 03-06-2022 influenza, seasonal, injectable Dr. Spenser Sanchez Work Phone: [facility] 03-25-2021 influenza, injectabl e, quadrivalent, preservative free Dr. Spenser Sanchez MD Work Phone: [facility] 03-25-[address] Spenser Sanchez MD Work Phone: [facility] 10-29-2020 Covid (Moderna) Dr. Jodi Sanchez Work Phone: [facility] 10-01-2020 Covid (Moderna) Dr. Jodi Sanchez Work Phone: [facility] 09-11-2020 Covid (Moderna) Dr. Jodi Sanchez MD Work Phone: [facility] 08-14-2020 Covnm (Moderna) Dr. Jodi Sanchez MD Work Phone: [facility] 04-02-[address] Spenser Sanchez Work Phone: [facility] 03-04-2020 Influenza, injectabl e, Madin [place] Canine Kidney, preservative free, quadrivalent Dr. Spenser Sanchez MD Work Phone: [facility] 03-04-[address] Spenser Sanchez MD Work Phone: [facility] 03-13-2019 influenza, injectabl e, quadrivalent, preservative free Dr. Spenser Sanchez Work Phone: [facility] 03-13-2019 influenza, seasonal, injectable Dr. Spenser Sanchez Work Phone: [facility] [facility] 03-07-2019 Influenza, injectabl e, Madin Ariadna Canine Kidney, preservative free, quadrivalent Dr. Spenser Sanchez MD Work Phone: [facility] 01-30-2019 pneumococcal polysaccharide vaccine, [address] Spenser Sanchez MD Work Phone: [facility] 01-30-2019 tetanus toxoid, redu debora diphtheria toxoid, and acellular pertussis vaccine, adsorbed Dr. Spenser Sanchez MD Work Phone: [facility] 03-20-2015 influenza, injectabl e, quadrivalent, preservative free Dr. Spenser Sanchez MD Work Phone: [facility] 02-05-2015 pneumococcal conjuga te vaccine, [address] Spenser Sanchez MD Work Phone: [facility] 03-06-2014 influenza, injectabl e, quadrivalent, preservative free Dr. Spenser Sanchez MD Work Phone: [facility] 05-05-2013 influenza virus vacc ine, unspecified formulation Aren Mcarthur PA-C Work Phone: [facility] 02-05-2013 pneumococcal conjuga te vaccine, [address] Spenser Sanchez MD Work Phone: [facility] 03-29-2012 influenza virus vacc ine, unspecified formulation Aren Mcatrhur PA-C Work Phone: [facility] Work Phone: 04-30-2011 influenza virus vacc ine, unspecified formulation Aren Mcarthur PA-C Work Phone: [facility] 03-25-2010 influenza virus vacc ine, unspecified formulation Aren Mcarthur PA-C Work Phone: [facility] Work Phone: 08-03-2009 pneumococcal polysaccharide vaccine, 23 valent Aren Mcarthur PA-C Work Phone: [facility] 02-08-2009 influenza virus vacc ine, unspecified formulation Aren Mcarthur PA-C Work Phone: [facility] Work Phone: 03-09-2008 influenza virus vacc ine, unspecified formulation Aren Mcarthur PA-C Work Phone: [facility] Work Phone: 01-24-2008 tetanus and diphther ia toxoids, adsorbed, preservative free, for adult use (2 Lf of tetanus toxoid and 2 Lf of diphtheria toxoid) Aren Mcarthur PA-C Work Phone: [facility] 04-04-2007 influenza virus vacc ine, unspecified formulation Aren Mcarthur PA-C Work Phone: [facility] Work Phone: 03-01-2006 influenza virus vacc ine, unspecified formulation Aren Mcarthur PA-C Work Phone: [facility] 03-12-2005 influenza virus vacc ine, unspecified formulation Aren Mcarthur PA-C Work Phone: [facility] Work Phone: 02-01-2003 pneumococcal polysaccharide vaccine, 23 valent Aren Mcarthur PA-C Work Phone: [facility] Work Phone: 05-07-1997 diphtheria and tetan us toxoids, adsorbed for pediatric use Aren Mcarthur PA-C Work Phone: [facility] Work Phone: Payers Date Payer Category Payer Self-pay [id number] 2015 Private Health Insurance [id number] 2015 Private Health Insurance HUMANA HUMANA MEDICARE SUPPLEMENT [id number] 2015-Present [phone] [address] [address] [place] [address] Indemnity [id number] 2009 Medicare [id number] 2009 Medicare MEDICARE MEDICAR E A AND B [id number] 2009-Present [phone] [address] [address] [place] [address] Medicare [id number] .[id number] Unknown [id number] 2.16.840.1.638362.3.579 .2.462 Unknown [id number] 2.16.840.1.694005.3.579 .2.462 Unknown [id number] 2.16.840.1.970955.3.579 .2.462 Unknown [id number] 2.16.840.1.179892.3.579 .2.462 Unknown [id number] 2.16.840.1.703215.3.579 .2.462 Unknown [id number] 2.16.840.1.863461.3.579 .2.462 Unknown [id number] 2.16.840.1.677788.3.579 .2.462 Unknown [id number] 2.16.840.1.385548.3.579 .2.462 Unknown [id number] 2.16.840.1.499899.3.579 .2.462 Unknown [id number] 2.16.840.1.552928.3.579 .2.462 Unknown [id number] 2.16.840.1.662059.3.579 .2.462 Unknown [id number] 2.16.840.1.392654.3.579 .2.462 Unknown [id number] 2.16.840.1.397779.3.579 .2.462 Unknown [id number] 2.16.840.1.422180.3.579 .2.462 Unknown [id number] 2.16.840.1.823812.3.579 .2.462 Unknown [id number] 2.16.840.1.677033.3.579 .2.462 Unknown [id number] 2.16.840.1.982867.3.579 .2.462 Unknown [id number] 2.16.840.1.897947.3.579 .2.462 Unknown [id number] 2.16.840.1.397519.3.579 .2.462 Unknown [id number] 2.16.840.1.291925.3.579 .2.462 Unknown [id number] 2.16.840.1.851303.3.579 .2.462 Unknown [id number] 2.16.840.1.955739.3.579 .2.462 Unknown [id number] 2.16.840.1.790286.3.579 .2.462 Unknown [id number] 2.840.1.676301.3.579 .2.462 Unknown [id number] 2.16840.1.131060.3.579 .2.462 Unknown [id number] 2.840.1.859309.3.579 .2.462 Unknown [id number] 2.16.840.1.139222.3.579 .2.462 Unknown [id number] 2.16.840.1.017242.3.579 .2.462 Unknown [id number] 2.16.840.1.696711.3.579 .2.462 Unknown [id number] 2.16.840.1.341340.3.579 .2.462 Unknown [id number] 2.840.1.725255.3.579 .2.462 Unknown [id number] 2.16.840.1.972781.3.579 .2.462 Unknown [id number] 2.16.840.1.102428.3.579 .2.462 Unknown [id number] 2.16.840.1.006022.3.579 .2.462 Unknown [id number] 2.16.840.1.693892.3.579 .2.462 Unknown [id number] 2.16.840.1.613293.3.579 .2.462 Unknown [id number] 2.16.840.1.839492.3.579 .2.462 Unknown [id number] 2.16.840.1.194079.3.579 .2.462 Unknown [id number] 2.16.840.1.307294.3.579 .2.462 Unknown [id number] 2.16.840.1.498031.3.579 .2.462 Unknown [id number] 2.16.840.1.599918.3.579 .2.462 Unknown [id number] 2.16.840.1.701222.3.579 .2.462 Unknown [id number] 2.16.840.1.863909.3.579 .2.462 Social History Date Type Detail Facility Start: 05-31-2020 End: 08-09-2024 Tobacco smoking status NHIS Former smoker [facility] Work Phone: End: 01-27-2001 History of tobacco use Current smoker [place] Start: 05-31-2020 End: 07-10-2022 Cigarettes smoked current (pack per day) - Reported [place] Start: 05-31-2020 End: 07-10-2022 Tobacco use and exposure Never used [place] Start: 05-31-2020 Alcohol intake Ex-drinker (finding) [place] Start: 05-27-2020 History SDOH Alcohol Frequency 1 [place] Start: 05-31-2020 History SDOH Alcohol Std Drinks 99 [place], [place] Start: 1945 Sex Assigned At Not on file [place] Exposure to SARS-CoV -2 (event) Not sure [place] Start: 12-29-2021 End: 08-03-2023 Tobacco smoking status NHIS Unknown if ever smoked [facility] Start: 08-31-2020 Rare [facility] Start: 08-31-2020 None [facility] Start: 06-29-2019 Spouse/ Signif icant Other [facility] Start: 08-31-2020 Non-smoker [facility] Start: 1945 Sex Assigned At Male [facility] End: 01-27-2001 History of tobacco use Cigarette Smoker [facility] Work Phone: Start: 07-10-2022 Alcohol intake Current drinke r of alcohol (finding) [facility] Start: 03-03-2019 Alcohol Comment 1 shot at nigh t before bed [facility] Start: 07-18-2024 End: 08-11-2024 Sex Male (finding) [facility] Medical Equipment Procedure Code Equipment Code Equipment Origin al Text Equipment Identifier Dates Repair, hernia, inguinal, with mesh insertion ([id number]) [id number] FDA Start: 06-19-2021 Wire Felicity .045in Stainless Steel 5.5in Fixation Trocar Smooth Guide - [id number] Start: 04-07-2019 ([id number] FDA Start: 11-27-2022 Goals Date Patient Goal Desired Activity /State Functional Status Date Assessment Result Facility 08-11-2024 Functional status Up ad teri [facility] Work Phone: 07-28-2024 Functional status Standby Assist [facility] Work Phone: 11-16-2022 Functional status Up ad teri [facility] Work Phone: 07-26-2022 Functional status Ambulates;Bathroom Priv ilege [facility] Work Phone: Mental Status Date Assessment Result Facility 08-11-2024 Cognitive function Voice/Name [facility] Work Phone: 07-28-2024 Cognitive function Voice/Name [facility] Work Phone: 07-18-2024 Cognitive function Awake;Alert;Appropriat e [facility] Work Phone: 07-18-2024 Cognitive function Voice/Name [facility] Work Phone: 11-30-2022 Cognitive function Level Of Cons ciousness Awake;Alert;Appropriate [facility] Work Phone: 11-16-2022 Cognitive function Appropriate;[facility] Work Phone: 11-15-2022 Cognitive function Voice/Name [facility] Work Phone: 11-14-2022 Cognitive function Voice/Name [facility] Work Phone: 11-01-2022 Cognitive function Aw[facility]: 08-08-2022 Cognitive function Awake;Alert;[facility] Work Phone: 07-26-2022 Cognitive function Appropriate;[facility] Work Phone: Clinical Notes 09-09-2015 to 09-01-2024 Note Date & Type Note Facility 09-01-2024 Radiology Diagnostic study note [facility] 08-11-2024 Note [facility] 08-10-2024 Consult note Note Date/Time August 11, 2024 12:51pm [facility] Medical Records Department [address] [facility] [address] Anesthesia Postop Eval II 08/10/241915 MR#: [id number] Acct: [id number] Name: BETTE CLEMENTS Rep #:[id number] : 1945 79 From: Saroj Richards MD PCP: CODY Burk Status:ADM IN Y Race: C Location: [place] [address] Anesthesia Postop Eval I Sum Postop Eval Completion status Anesthesia document: Postop Eval 1 completed: Yes Anesthesia Postop Eval I Summary Anesthesia Postop Eval I Summary: Anesthesia Postop Eval I: Assessment Summary Airway patent Yes 08/10/24 15:32 [email or web address] Spontaneous unlabored Yes 08/10/24 15:32 [email or web address] respirations Mental status Awake,Calm 08/10/24 15:32 [email or web address] nausea No 08/10/24 15:32 [email or web address] Vomiting No 08/10/24 15:32 [email or web address] Anesthesia Postop Eval I: Fluid Summary Crystalloid volume administer 40 08/10/24 15:32 [email or web address] (ml) Colloids volume administered ( ml) Blood Product volume administered (ml) Total IV fluid infused 40 08/10/24 15:32 [email or web address] Anesthesia Postop Eval I: Summary Notes Anesthesia Complication No 08/10/24 15:32 [email or web address] Anesthesia Complication Comment: Post-operative progress note Anesthesia: Postop Eval II Evaluation Mental status: Awake and Calm Pain Level: 0 nausea: No Vomiting: No Complications Anesthesia Complication: No 08/10/241915 <Electronically signed by Saroj anguiano MD> Date _ Saroj Richards MD Cosigner Signature: Date CC: ~ Signed [facility] Work Phone: 1(731) 132-931804-10-2025 Progress note Author Tiki Saldivar [facility] Note Date/Time August 10, 2024 5:[address] [facility] Medical Records Department [address] [place] [id number] Progress Note - Hospitalist 08/10/24 1708 MR#: [id number] Acct: [id number] Name: BETTE CLEMENTS Rep #:[id number] : 1945 79 From: Tiki Saldivar MD PCP: Jeremiah Mckeon NP-C Status:ADM KISHORE Location: [place] [address] Reason for Visit Reason for Visit: Diagnoses Angiodysplasia of colon without hemorrhage (08/09/24) Hemorrhage of anus and rectum (08/09/24) Personal history of other malignant neoplasm of large intestine (08/09/24) Subjective Subjective Patient underwent colonoscopy today which showed multiple bleeding angiodysplastic lesions which were treated with APC and 1 polyp, patient tolerated procedure well, this a.m. prior to procedure patient reported feeling fair overall with no new or acute complaints Objective Data Objective Data Vital Signs: Vital Signs Temp Pulse Resp BP Pulse Ox O2 Del Method O2 Flow Rate 97.8 F 70 16 137/82 H 98 Room Air 3 08/10/24 15:58 08/10/24 15:58 08/10/24 15:58 08/10/24 15:58 08/10/24 15:58 08/10/24 15:58 08/10/24 14:09 Oxygen Flow Rate (L/min) 3 Oxygen Delivery Method Room Air Weight: 60.9 kg Body Mass Index (BMI) 21.0 Intake & Output: Intake and Output for Last 24 Hours 08/08/24 08/09/24 08/10/24 23:59 23:59 23:59 Intake Total 1800 / 1800 Output Total 350 / 350 Balance 1450 / 1450 Medical Nutrition Assessment Dietitian: Malnutrition Criteria Met Start: 08/10/24 13:37 Freq: Status: Active Protocol: Document 08/10/24 13:37 RMA (Rec: 08/10/24 13:37 RMA [id number]) Nutrition Malnutrition Evidence of Yes Malnutrition Exists Malnutrition ( Chronic moderate): Evidenced By Suboptimal Energy Intake (Moderate),Weight Loss ( Moderate) Intake Problem Inadequate Oral Intake Etiology related to altered GI function/bleed Signs/Symptoms as evidenced by NPO Status Active Problem Clinical Problem Acute Disease or Injury Related Malnutrition Etiology moderate protein-calorie malnutrition in the context of chronic disease/debility related to inadequate oral/ energy intake and increased energy expenditure Signs/Symptoms as evidenced by ~10% unintentional weight loss x 1 year and ~5% unintentional weight loss x 2-3 months and Po meeting less than 75% estimated nutrition needs x past 3-6 months Status Active Problem Recommendation Dietitian Recommend advance diet as needed to Transitional s/p Recommendations/ colonoscopy with goal of liberalized regular diet as Changes tolerated. Will add ONS as diet advanced from NPO to support weight gain and repletion of energy/protein. Lab / Micro Data 08/10/24 04:02 08/10/24 04:02 Labs: Laboratory Results - last 24 hr 08/09/24 17:00: WBC 7.9, RBC 4.01 L, Hgb 12.9 L, Hct 37.9 L, MCV 94.5 H, MCH 32.2 H, MCHC 34.0, RDW Std Deviation 42.2, RDW Coeff of Kylee 12.1, Plt Count 340,MPV 10.1, Immature Gran % (Auto) 0.400, Neut % (Auto) 74.9 H, Lymph % (Auto) 11.4 L, Clare % (Auto) 7.6, Eos % (Auto) 4.8, Baso % (Auto) 0.9, Absolute Neuts (auto) 5.9, Absolute Lymphs (auto) 0.90, Nucleated RBC % 0, PT 14.0, INR 1.1, APTT 26.6, Sodium 136, Potassium 3.6, Chloride 103, Carbon Dioxide 21.6, Anion Gap 12, BUN 24 H, Creatinine 1.44 H, Estim Creat Clear Calc 34.23 L, Est GFR (MDRD) Non-Af 49 L, BUN/Creatinine Ratio 16.9, Glucose 106 H, Calcium 9.8, BloodType O POSITIVE, Antibody Screen NEGATIVE 08/10/24 04:02: WBC 8.2, RBC 3.66 L, Hgb 11.7 L, Hct 34.4 L, MCV 94.0, MCH 32.0,MCHC 34.0, RDW Std Deviation 42.0, RDW Coeff of Kylee 12.1, Plt Count 330, MPV 10.4, Immature Gran % (Auto) 0.200, Neut % (Auto) 79.5 H, Lymph % (Auto) 8.1 L, Clare % (Auto) 6.8, Eos % (Auto) 4.4, Baso % (Auto) 1.0, Absolute Neuts (auto) 6.5, Absolute Lymphs (auto) 0.66 L, Nucleated RBC % 0, Sodium 140, Potassium 3.5, Chloride 107, Carbon Dioxide 19.5 L, Anion Gap 14, BUN 20 H, Creatinine 1.27 H, Estim Creat Clear Calc 39.96 L, Est GFR (MDRD) Non-Af 57 L, BUN/Creatinine Ratio 16.0, Glucose 119 H, Calcium 9.7 Physical Exam Narrative General: Alert, oriented, no apparent distress HEENT: Atraumatic, normocephalic Eyes: Anicteric, normal conjunctiva, extraocular movements grossly intact Neck: Supple Respiratory: Slight increased work of breathing without any overt wheezes or rhonchi Cardiovascular: Regular rate and rhythm GI: Soft, nontender, nondistended Extremities: No edema Musculoskeletal: Moving all extremities Neuro: No overt focal neurological deficits Skin: No rashes appreciated Psych: Cooperative Assessment & Plan Assessment/Plan (1) Angiodysplasia of colon: PLAN: Plan 1. Angiodysplasia of his colon with chronic lower GI bleeding ? Repeat hemoglobin in the morning ? Continue with prep for possible colonoscopy tomorrow ? Will hold his Plavix ? This is complicated by the fact that he has had radiation for prostate cancer and has some history of radiation proctitis he also has a history of internal/external hemorrhoids. -08/10: Patient underwent colonoscopy with multiple bleeding angiodysplastic lesions treated with APC and removal of a polyp, discussed with GI, patient started on Plavix tonight and if doing well can likely DC home tomorrow 2. CAD status post stents/essential HTN ? Will have to discuss the continuation of Plavix and antiplatelets on discharge, does appear his stents were in 2022 ? Continue with his home blood pressure medication ? Will monitor make adjustments as necessary -08/10: Resuming Plavix tonight 3. BPH ? Stable ? Continue with Flomax -08/10: No present concerns DVT: SCDs Time spent in the patient's overall evaluation,decision-making process, review of diagnostic data, adjustment of management, discussion with other providers, nursing nursing and ancillary staff involved in patient's care documentation, 36Minutes Charges/Coding Visit Charges Inpatient E&M: 26975 Subs Hosp L2 08/10/24 1712 <Electronically signed by Tiki Saldivar MD> Cosigner Signature (if applicable): CC: ~ Signed [facility] Work Phone: 1(676) 420-808504-10-2025 Consult note Author Ryan Islas [facility] Note Date/Time August 10, 2024 3:3 2pm [facility] Medical Records Department [address] [place] [address] Anesthesia Postop Eval I 08/10/24 1531 MR#: [id number] Acct: [id number] Name: BETTE CLEMENTS Rep #:[id number] : 1945 79 From: Ryan Islas PCP: CODY Burk Status:ADM KISHORE Y Race: C Location: [place] [address] Anesthesia: Postop Eval I Current Vital Signs Temperature: 97.2 F Pulse Rate: 81 Blood Pressure: 115/59 Respiratory Rate: 16 Pulse Ox: 96 Oxygen Delivery Method: Room Air Assessment Airway patent: Yes Spontaneous unlabored respirations: Yes Mental status: Awake and Calm nausea: No Vomiting: No Anesthesia Complication: No Fluid Hydration Crystalloid volume administer (ml): 40 Total IV fluid infused: 40 Progress Note Anesthesia document: Postop Eval 1 completed: Yes 08/10/24 7122 <Electronically signed by Ryan Islas > Date _ Ryan Amezquita Signature: Date CC: ~ Signed [facility] Work Phone: 1(167) 887-863804-10-2025 Progress note Author Faraz Friend 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 He received soapsuds enemas. Physical Exam Narrative General: Alert, Oriented x3, Cooperative, No apparent distress HEENT: Atraumatic, PERRLA, EOMI, Normocephalic Oral: Moist Mucosa Neck: Supple, No JVD Lungs: Diminished, Normal air movement, No rhonchi, No wheeze, No rales Cardiovascular: Regular rate, Regular Rhythm, Normal S1, Normal S2, No murmurs Abdomen: Soft, Non Tender, Non-Distended, No Hepato-splenomegaly Extremities: No edema, Capillary Refill Less than 3 Seconds Skin: No rashes, No breakdown Musculoskeletal: No Tenderness to Palpation of Joints or Extremities Neurological: No focal neurological deficits, Motor Exam 5/5 strength throughout, Sensory exam intact to light touch and pain Psych/Mental Status: Normal Affect, Appropriate Assessment & Plan Assessment/Plan (1) Personal history of other malignant neoplasm of large intestine: (2) Rectal bleeding: PLAN: Assessment and Plan Assessment and Plan (1) Rectal bleeding: Status: Acute (2) Personal history of other malignant neoplasm of large intestine: Status: Acute (3) Abdominal pain: Status: Acute Qualifiers: Abdominal location: generalized Qualified Code(s): R10.84 - Generalizedabdominal pain Orders: Orders CBC W/Diff, Automated Today K62.5 - Hemorrhage of anus and rectum Colonoscopy Today Medications: New h g Plan 79-year-old with lower GI bleeding. His PMH is significant for CAD, MIx2, cardiac stent x9 on plavix, moderate COPD with bronchiectasis complicated by chronic hypoxic respiratory failure, CKD3b, prostate CA, colon CA (2007). He complaints of BRBPR with BM for the past 6-8 weeks. The plan will be for colonoscopy tomorrow with treatment of angiodysplastic lesions. During his lastcolonoscopy he was not clean and had a lot of stool in his rectum. This did notallow for total treatment of his rectum. Visit Charges Inpatient E&M: 92984 Subs Hosp L3 08/10/24 2791 <Electronically signed by Faraz Gonzáles DO> Faraz Gonzáles DO Cosigner Signature (if applicable): CC: ~ Signed [facility] Work Phone: 1(139) 241-970104-10-2025 Consult note Author Saroj Richards [facility] Note Date/Time August 10, 2024 2:1 6pm [facility] Medical Records Department [address] [place] [address] Pre-Anesthesia Evaluation 08/10/24 1407 MR#: [id number] Acct: [id number] Name: BETTE CLEMENTS Rep #:[id number] : 1945 79 From: Saroj Richards MD PCP: KAI BurkC Status:ADM KISHORE Y Race: C Location: [place]304 -1 ASA Classification* ASA Classification ASA Classification: 3 Assessment & Plan Anesthesia* Anesthesia Assessment Anesthesia Assessment: Discussed sedation and/or anesthesia options, risks, benefits, and alternatives with patient/parents/legal guardian/POA. Questions invited. The patient/parents/legal guardian/POA seems to understand and agrees to proceedwith anesthesia plan. Reviewed the physical assessment, medical history, allergy history and patient home medications list prior to surgery/procedure/anesthetic and documented any changes. Performed airway and anesthesia risk assessments. Anesthesia Type Anesthesia Type: MAC History Source History Obtained from:: Patient and Chart Anesthesia Focused Assessment* Temperature: 97.5 F Pulse Rate: 70 Blood Pressure: 145/86 Respiratory Rate: 16 Pulse Ox: 97 Oxygen Delivery Method: Room Air Oxygen Flow Rate (L/min): 3 Airway Assessment Mouth opens: >3 cm Mallampati Score: IV Teeth Condition: Chipped/Broken (Patient has several broken teeth. They are alltight.) Neck Range of motion (ROM): Full ROM Focused Labs Anesthesia Preop lab: CBC WBC 8.2 K/mm3 (4.4-11.0) 08/10/24 04:02 08/10/24 RBC 3.66 M/mm3 (4.6-6.2) L 08/10/24 04:02 08/10/24 Hgb 11.7 g/dL (13.0-16.5) L 08/10/24 04:02 5 Hct 34.4 % (40-54) L 08/10/24 04:02 08/10/24 Plt Count 330 K/mm3 (150-450) 08/10/24 04:02 08/10/24 CHEMISTRY Potassium 3.5 mmol/L (3.3-5.1) 08/10/24 04:02 08/10/24 Sodium 140 mmol/L (133-145) 08/10/24 04:02 08/10/24 Magnesium 1.7 mg/dL (1.5-2.2) 07/28/24 06:18 07/28/24 Phosphorus 3.1 mg/dL (2.5-4.9) 11/16/22 03:00 11/16/22 BUN 20 mg/dL (4-19) H 08/10/24 04:02 08/10/24 Creatinine 1.27 mg/dL (0.70-1.20) H 08/10/24 04:02 Glucose 119 mg/dL (70-99) H 08/10/24 04:02 08/10/24 POC Glucose 129 mg/dL (74-106) H 07/28/24 12:07 07/28/24 TSH 2.440 uIU/mL (0.300-4.200) 07/28/24 06:18 07/02 12/25 COAG PT 14.0 SECONDS (11.7-14.9) 08/09/24 17:00 Pre-Assessment Diagnosis/Proposed Procedure Planned Operative Procedure(s): Colonoscopy with control of bleeding. Anesthesia History Anesthesia History - manager urology: Anesthesia History - manager urology Hx Hospitalization No 07/17/24 13:20 Any Problems With Anesthesia No 08/10/24 02:22 Cholinesterase deficiency No 08/10/24 02:22 You/Your Family Experience No 08/10/24 02:22 fever (hyperthermia) with Relationship Recent Exposure to Contagious No 08/10/24 02:22 Disease Does patient have nerve No 08/10/24 02:22 stimulator Patient instructed to have No 08/10/24 02:22 device shut off --Does patient have Pacemaker or ICD? When Was Last Pacemaker Check QUESTION #4 FULL TEXT: You/Your Family Experience fever (hyperthermia) with Anesthesia Last Oral Intake Last Oral intake: Last Oral Intake NPO since Meds taken in AM with sips of water? Meds patient instructed to take am of surgery Any additional information?: Yes NPO since: 02:00 (Patient finished his prep at 2 AM.) Meds taken in AM with sips of water?: No PONV PONV - manager urology: PONV - manager urology Female HX of Motion Sickness HX of N/V After Surgery Non-Smoker Duration of Surgery greater than 60 minutes Number of Risk Factors PONV Score Height & Weight Height & Weight: Anesthesia: Height & Weight Height 5 ft 7 in 08/10/24 13:17 Weight: 60.9 kg 08/10/24 13:17 Body Mass Index (BMI) 21.0 08/09/24 19:50 Respiratory Assessment Respiratory Assessment - manager urology: Respiratory Tract Infection Hx - manager urology Hx Respiratory Tract Infection No 08/10/24 02:22 STOP Sleep Apnea STOP Sleep Apnea - manager urology: STOP Sleep Apnea - manager urology Hx Hypertension Yes 08/09/24 19:50 Hx Sleep Apnea Yes: 3L O2 AT NIGHT 08/09/24 19:50 CPAP No 08/09/24 19:50 BIPAP No 08/09/24 19:50 Do you snore loudly (louder than talking or can be heard Do you often feel tired/ fatigued/ sleepy during daytime? Has anyone observed you stop breathing during sleep? STOP Results Positive 08/09/24 19:50 QUESTION #5 FULL TEXT : Do you snore loudly (louder than talking or can be heard through closed doors)? 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 Specify any problems Hx of Preganancy in last 3 N/A 08/09/24 19:50 Months Nurse Filling Out Transfusion FSTEINER 08/09/24 19:50 & Questions: Date: 08/09/24 08/09/24 19:50 Time: 19:52 08/09/24 19:50 Patient unable to answer at this time (ie. confused, unrespo /Reproduction History /Reproductive History - manager urology: /Reproductive Hx- manager urology Hx Now No 08/10/24 02:22 Gestational Age (in weeks): EDC: Hx Hx Para Hx Section SAB No 08/10/24 02:22 Active Medications Active Medications: Current Medications Generic Name Dose Route Start Last Admin Trade Name Freq PRN Reason Stop Dose Admin Albuterol Sulfate 2.5 mg 08/10/24 02:02 Albuterol 2.5 Mg/3 Ml Vial.Neb. INHALATION Q2H PRN PRN Asthma Budesonide 0.5 mg 08/09/24 19:57 08/10/24 07:00 Budesonide Respules 0.5 Mg/2 Ml Ampul.Neb. INHALATION 0.5 mg BID.RT RAJ Administration Fluticasone Propionate 1 spray 08/10/24 02:02 08/10/24 02:18 Fluticasone 0.05% 1 Wrens Nasal.Sry NASAL 1 spray BID PRN PRN Administration CONGESTION Furosemide 40 mg 08/09/24 19:57 Furosemide 40 Mg Tablet PO DAILY PRN edema Protocol Hydrocortisone Acetate 25 mg 08/09/24 22:00 08/09/24 20:42 Hydrocortisone 25 Mg Suppository RC 25 mg QHS RAJ Administration Sodium Chloride 100 mls @ 15 mls/hr 08/09/24 20:02 IV .Q6H40M PRN Saline Flush Sodium Chloride 100 mls @ 15 mls/hr 08/09/24 20:02 IV .Q6H40M PRN Additional IVPB Infusion Isosorbide Mononitrate 30 mg 08/10/24 10:00 Isosorbide Mononitrate 30 Mg Tablet PO DAILY [facility] Protocol Sodium Chloride 10 - 40 ml 08/09/24 20:02 08/10/24 13:59 0.9% Saline Lock 10 Ml Syringe IV 10 ml UD PRN Administration SALINE FLUSH Tamsulosin HCl 0.4 mg 08/09/24 22:00 08/10/24 09:59 Tamsulosin Hcl 0.4 Mg Capsule PO Not Given BID [facility] Verapamil HCl 240 mg 08/09/24 22:00 08/09/24 20:42 Verapamil Sr 240 Mg Tablet PO 240 mg QHS [facility] Administration Protocol [facility] Medical History GI bleed Marijuana use Prostate disease Shortness of breath on exertion Preoperative evaluation to rule out surgical contraindication Asthmatic bronchitis with exacerbation Nocturia Malignant neoplasm of colon, unspecified Heart disease Emphysema, unspecified Anxiety Frequency of micturition Chronic kidney disease, stage 3b Trigger finger Prostate CA Partial bowel obstruction Complete small bowel obstruction Elevated PSA Therapeutic drug monitoring Wears glasses Arthritis Easy bruising Excessive bleeding Back pain On home oxygen therapy Asthma Anemia Cancer Alcohol abuse Kidney stones Former smoker AAA (abdominal aortic aneurysm) Myocardial infarct Coronary artery disease Low back pain Epistaxis Sinus bradycardia Left inguinal hernia Essential (primary) hypertension Hyperlipidemia 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) History of ST elevation myocardial infarction (STEMI) (05/27/07) Insomnia Iron deficiency Abdominal aortic aneurysm (AAA) greater than 5.5 cm in diameter in male Hypoxia Bronchiectasis Allergy to dog dander Short bowel syndrome BPH (benign prostatic hyperplasia) Personal history of other malignant neoplasm of rectum, rectosigmoid junction, and anus Tachycardia 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 classification History of colon cancer COPD (chronic obstructive pulmonary disease) Home Medications ?Medication ?Instructions ?Recorded ?Last Taken ?Type Disability Placard #1 ea 02/11/23 Unknown Rx formoterol fumarate 20 mcg/2 mL 2 ml inhalation Q12H c opd #120 mL 05/06/23 08/08/24 Rx solution for nebulization (Perforomist) isosorbide mononitrate 30 mg 30 mg PO DAILY heart #30 TABLETS 12/10/23 08/08/24 Rx tablet,extended release 24 hr furosemide 40 mg tablet 40 mg PO DAILY PRN edema #30 tabs 12/13/23 Unknown Rx clopidogrel 75 mg tablet 75 mg PO DAILY anti platelet #90 02/10/24 08/08/24 Rx tabs verapamil 240 mg tablet,extended 240 mg PO QHS heart # 90 tabs 05/05/24 08/08/24 Rx release tamsulosin 0.4 mg capsule 0.4 mg PO BID prostate #180 caps 05/22/24 08/09/24 Rx budesonide 0.5 mg/2 mL suspension 0.5 mg (2 mL) inhala tion Q12H 06/14/24 08/08/24 Rx for nebulization breathing #180 mL hydrocortisone acetate 25 mg 25 mg ME QHS proctitis #1 2 ea 08/02/24 08/08/24 Rx rectal suppository (Anusol-HC) Allergy/AdvReac Type Severity Reaction Status Date / Time aspirin Allergy Shortness Verified 08/09/24 16:30 of breath adhesive AdvReac Rash Verified 08/09/24 16:30 amoxicillin trihydrate (From AdvReac Other Verified 08/09/24 16:30 Augmentin) atorvastatin calcium (From AdvReac leg cramps Verified 08/09/24 16:30 Lipitor) isopropyl alcohol AdvReac Rash Verified 08/09/24 16:30 metoprolol succinate (From AdvReac Rash Verified 08/09/24 16:30 Toprol XL) naproxen (From Naprosyn) AdvReac Shortness Verified 08/09/24 16:30 of breath paroxetine HCl (From Paxil) AdvReac Unknown Verified 08/09/24 16:30 potassium clavulanate (From AdvReac tingling Verified 08/09/24 16:30 Augmentin) all over propoxyphene HCl (From AdvReac Unknown Verified 08/09/24 16:30 Darvon) sertraline HCl (From Zoloft) AdvReac Unknown Verified 08/09/24 16:30 simvastatin (From Zocor) AdvReac Unknown Verified 08/09/24 16:30 tiotropium bromide (From AdvReac Other Verified 08/09/24 16:30 Spiriva with HandiHaler) Family History Father Heart disease Hypertension High cholesterol CVA (cerebral vascular accident) Mother Dementia Surgical History History of coronary artery stent placement H/O hernia repair History of left inguinal hernia repair (06/2021) Hx of thumb surgery History of esophagogastroduodenoscopy (EGD) Hx of colonoscopy Hx of sinus surgery History of endovascular stent graft for abdominal aortic aneurysm (AAA) (06/25/20) History of left heart catheterization (05/24/20) History of coronary artery stent placement (11/27/22) Hx of umbilical hernia repair Hx of appendectomy History of tonsillectomy and adenoidectomy Hx of bilateral cataract extraction Status post laparoscopic colectomy history of right eye surgery History of right inguinal hernia repair History of tonsillectomy Social History Smoking Status: Former smoker pack-years: 67 second hand exposure: No alcohol intake: former details: Previous nightly drinker. Stopped 2021 substance use type: marijuana caffeine: Yes Type: coffee Number of servings: 4 what type of physical activity do you participate in: weight training and otherdetails: pulmonary rehab frequency: 3-4 times per week additional social history: Has had blood transfusion Review of Systems (Anesthesia) ROS Narrative System reviewed and no additional complaints, except as documented. 08/10/24 1416 <Electronically signed by Saroj anguiano MD> Date _ Saroj Jacomeignakira Signature: Date CC: ~ Signed [facility] Work Phone: [phone]) 468-703004-10-2025 Procedure [facility] 08-10-2024 Procedure [facility]04-10-2025 Discharge summary Author Viral Gutiérrez [facility] Note Date/Time August 09, 2024 11:0 3pm [facility] Medical Records Department [address] [place] [address] Emergency Department Summary 08/09/24 MR#: [id number] Acct: [id number] Name: BETTE CLEMENTS Rep #:[id number] : 1945 79 From: Viral Garcia PCP: Jeremiah Mckeon NP-C Status:ADM KISHORE Location: [place] [address] HPI HPI - GI History of Present Illness Chief Complaint: GI Bleed Informant: patient Narrative Narrative: Recurrent bright red blood per rectum for last 5 days. 4-5 a day noting clots. He is on Plavix no other antiplatelets or anticoagulants. No abdominal pain. On and off symptoms for the past few months. He is seeing GI Dr. Friend had a colonoscopy July 18 reporting to me told his colon was fried from radiation therapy. History of prostate cancer he states last radiation 6 to 8 months ago. He states there were lesions that had discussion of cauterization however states had not gone back in. He states sometimes he did have bright red bloodper rectum daily sometimes every other day however the frequency has increased over the last few days. No lightheaded symptoms. He left 2 messages with GI office and did not get a call back. Prior similar symptoms: Yes [facility] Medical History GI bleed Marijuana use Prostate disease Shortness of breath on exertion Preoperative evaluation to rule out surgical contraindication Asthmatic bronchitis with exacerbation Nocturia Malignant neoplasm of colon, unspecified Heart disease Emphysema, unspecified Anxiety Frequency of micturition Chronic kidney disease, stage 3b Trigger finger Prostate CA Partial bowel obstruction Complete small bowel obstruction Elevated PSA Therapeutic drug monitoring Wears glasses Arthritis Easy bruising Excessive bleeding Back pain On home oxygen therapy Asthma Anemia Cancer Alcohol abuse Kidney stones Former smoker AAA (abdominal aortic aneurysm) Myocardial infarct Coronary artery disease Low back pain Epistaxis Sinus bradycardia Left inguinal hernia Essential (primary) hypertension Hyperlipidemia 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) History of ST elevation myocardial infarction (STEMI) (05/27/07) Insomnia Iron deficiency Abdominal aortic aneurysm (AAA) greater than 5.5 cm in diameter in male Hypoxia Bronchiectasis Allergy to dog dander Short bowel syndrome BPH (benign prostatic hyperplasia) Personal history of other malignant neoplasm of rectum, rectosigmoid junction, and anus Tachycardia 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 classification History of colon cancer COPD (chronic obstructive pulmonary disease) Home Medications ?Medication ?Instructions ?Recorded ?Last Taken ?Type Disability Placard #1 ea 02/11/23 Unknown Rx formoterol fumarate 20 mcg/2 mL 2 ml inhalation Q12H c opd #120 mL 05/06/23 08/08/24 Rx solution for nebulization (Perforomist) isosorbide mononitrate 30 mg 30 mg PO DAILY heart #30 TABLETS 12/10/23 08/08/24 Rx tablet,extended release 24 hr furosemide 40 mg tablet 40 mg PO DAILY PRN edema #30 tabs 12/13/23 Unknown Rx clopidogrel 75 mg tablet 75 mg PO DAILY anti platelet #90 02/10/24 08/08/24 Rx tabs verapamil 240 mg tablet,extended 240 mg PO QHS heart # 90 tabs 05/05/24 08/08/24 Rx release tamsulosin 0.4 mg capsule 0.4 mg PO BID prostate #180 caps 05/22/24 08/09/24 Rx budesonide 0.5 mg/2 mL suspension 0.5 mg (2 mL) inhala tion Q12H 06/14/24 08/08/24 Rx for nebulization breathing #180 mL hydrocortisone acetate 25 mg 25 mg ME QHS proctitis #1 2 ea 08/02/24 08/08/24 Rx rectal suppository (Anusol-HC) Allergy/AdvReac Type Severity Reaction Status Date / Time aspirin Allergy Shortness Verified 08/09/24 16:30 of breath adhesive AdvReac Rash Verified 08/09/24 16:30 amoxicillin trihydrate (From AdvReac Other Verified 08/09/24 16:30 Augmentin) atorvastatin calcium (From AdvReac leg cramps Verified 08/09/24 16:30 Lipitor) isopropyl alcohol AdvReac Rash Verified 08/09/24 16:30 metoprolol succinate (From AdvReac Rash Verified 08/09/24 16:30 Toprol XL) naproxen (From Naprosyn) AdvReac Shortness Verified 08/09/24 16:30 of breath paroxetine HCl (From Paxil) AdvReac Unknown Verified 08/09/24 16:30 potassium clavulanate (From AdvReac tingling Verified 08/09/24 16:30 Augmentin) all over propoxyphene HCl (From AdvReac Unknown Verified 08/09/24 16:30 Darvon) sertraline HCl (From Zoloft) AdvReac Unknown Verified 08/09/24 16:30 simvastatin (From Zocor) AdvReac Unknown Verified 08/09/24 16:30 tiotropium bromide (From AdvReac Other Verified 08/09/24 16:30 Spiriva with HandiHaler) Family History Father Heart disease Hypertension High cholesterol CVA (cerebral vascular accident) Mother Dementia Surgical History History of coronary artery stent placement H/O hernia repair History of left inguinal hernia repair (06/2021) Hx of thumb surgery History of esophagogastroduodenoscopy (EGD) Hx of colonoscopy Hx of sinus surgery History of endovascular stent graft for abdominal aortic aneurysm (AAA) (06/25/20) History of left heart catheterization (05/24/20) History of coronary artery stent placement (11/27/22) Hx of umbilical hernia repair Hx of appendectomy History of tonsillectomy and adenoidectomy Hx of bilateral cataract extraction Status post laparoscopic colectomy history of right eye surgery History of right inguinal hernia repair History of tonsillectomy Social History Smoking Status: Former smoker pack-years: 67 second hand exposure: No alcohol intake: former details: Previous nightly drinker. Stopped 2021 substance use type: marijuana caffeine: Yes Type: coffee Number of servings: 4 what type of physical activity do you participate in: weight training and otherdetails: pulmonary rehab frequency: 3-4 times per week additional social history: Has had blood transfusion ROS ROS ED Constitutional Constitutional ED: Denies chills, fever(s) or sweats ENT ENT ED: Denies sore throat Cardiovascular Cardiovascular: Denies chest pain, leg edema, palpitations or racing heartbeat Respiratory/Chest Respiratory/Chest: Denies cough, dyspnea or dyspnea on exertion Gastrointestinal Gastrointestinal: Reports other Details: Bright red blood per rectum ; Denies abdominal pain, diarrhea, nausea or vomiting Genitourinary Genitourinary ED: Denies dysuria, hematuria or urinary frequency Musculoskeletal Musculoskeletal: Denies back pain, extremity pain or neck pain Integumentary Denies rash or wounds Neurologic Neurologic: Denies headache(s), paresthesias or weakness EXAM Physical Exam Const Vital Signs: 08/09/24 16:28 08/09/24 17:28 Temperature 98 F Temperature Source Oral Pulse Rate 77 88 Respiratory Rate 14 16 Blood Pressure 162/95 H 172/87 H Blood Pressure Mean 117 115 Pulse Ox 97 97 Oxygen Delivery Method Room Air Room Air Positive well nourished and well developed General Appearance ED: well developed and NAD; Negative for pallor HEENT Reports moist mucous membranes normocephalic and atraumatic Eyes General Eye ED: Yes normal appearance of both eyes; Negative for pale conjunctiva Neck full ROM Chest Wall Chest: Negative for tenderness Resp normal respiratory effort and normal air movement Effort and Inspection: symmetric chest movement; Negative for respiratory distress Cardio regular rate, regular rhythm and no murmurs Peripheral Pulses: pulses 2+ throughout GI normal to inspection, nondistended, normoactive bowel sounds and non-tender Palpation: Negative for guarding or rebound tenderness present Extremity normal to inspection General Extremety ED: Negative for edema or tenderness General Extremity: Negative for edema Neuro oriented x3 and no sensory deficits noted Sensorium / Orientation: awake and alert Skin no rashes or lesions noted and no wounds General Skin Exam: Negative for pallor MDM MDM MDM Narrative Medical decision making narrative: Interventions / MDM: Differential diagnosis: Bright red blood per rectum, colonic angiodysplasias Diagnosis considered but do not suspect: N/A My EKG interpretation: N/A Imaging independently reviewed and interpreted by myself: N/A External documents reviewed: Colonoscopy report from July 18, 2024 2 polypectomies, multiple large areas of angiodysplasias nonbleeding per report. Test considered but not ordered:N/A ED course: Vital stable nontoxic no clinical pallor. Labs were checked for evaluation. Hemoglobin 12.9. Reviewing records colonoscopy multiple large nonbleeding angiodysplasia likely source of rebleed. I discussed with GI DrNeville Gonzáles, would like admission to medicine with bowel prep. He will likely plan recolonoscopy with intervention as needed. Beauregard score is 14. I discussed with hospitalist Dr. Fontana for admission to the medical floor. Re-evaluation: stable Disposition discussed with patient/family/significant other: Patient Case discussed with consulting clinician: N/A This note was generated with Nuroa dictation software. It may contain incorrectwords, spelling, and punctuation that were not noted in checking the note beforesigning. Lab Data Attestation: I reviewed the patient's lab results. Labs: Laboratory Results - last 24 hr 08/09/24 17:00 WBC 7.9 RBC 4.01 L Hgb 12.9 L Hct 37.9 L MCV 94.5 H MCH 32.2 H MCHC 34.0 RDW Std Deviation 42.2 RDW Coeff of Kylee 12.1 Plt Count 340 MPV 10.1 Immature Gran % (Auto) 0.400 Neut % (Auto) 74.9 H Lymph % (Auto) 11.4 L Clare % (Auto) 7.6 Eos % (Auto) 4.8 Baso % (Auto) 0.9 Absolute Neuts (auto) 5.9 Absolute Lymphs (auto) 0.90 Nucleated RBC % 0 PT 14.0 INR 1.1 APTT 26.6 Sodium 136 Potassium 3.6 Chloride 103 Carbon Dioxide 21.6 Anion Gap 12 BUN 24 H Creatinine 1.44 H Estim Creat Clear Calc 34.23 L Est GFR (MDRD) Non-Af 49 L BUN/Creatinine Ratio 16.9 Glucose 106 H Calcium 9.8 Blood Type O POSITIVE Antibody Screen NEGATIVE Discharge Plan Dx/Rx/DC Orders Clinical Impression: Rectal bleeding, Angiodysplasia of colon Disposition Disposition: Acute Care Hospital [facility] Discharge Date/Time: 08/09/24 18:54 What to do if you have Problems For any increased pain, shortness of breath, bleeding, nausea or vomiting, chestpain, or any unexpected problems, contact your Primary Care Provider. Call [facility] ([phone]) or report to the closest Emergency Room. Call 911 if necessary. 08/09/242302 <Electronically signed by Viral Garcia> Cosigner Signature (if applicable): CC: CODY Mckeon ~ Signed [facility] Work Phone: [phone]) 168-846804-09-2025 Consult note Author Faraz Friend [facility] Note Date/Time August 09, 2024 8:38 pm [facility] Medical Records Department [address] [place] [id number] Consultation - GI 08/09/242033 MR#: [id number] Acct: [id number] Name: BETTE CLEMENTS Rep #:[id number] : 1945 79 From: Faraz Gonzáles DO PCP: CODY Burk Status:ADM KISHORE Location: [place] [address] HPI Consult Data Date of Consult: 08/09/24 HPI Narrative Reason for Consultation: GI bleed HPI Narrative: BETTE CLEMENTS, is a 79 M who presents with recurrent bright red blood per rectum for last 5 days. Patient complains of 4-5 a day noting clots. He is on Plavix no other antiplatelets or anticoagulants. He denies any abdominal pain. He says that his symptoms are on and off symptoms for the past few months. He had a colonoscopy July 18 and a display radiation proctitis. He has a history of prostate cancer he states last radiation 6 to 8 months ago. He states sometimes he did have bright red blood per rectum daily sometimes every other day however the frequency has increased over the last few days. No lightheaded symptoms. [facility] Medical History GI bleed Marijuana use Prostate disease Shortness of breath on exertion Preoperative evaluation to rule out surgical contraindication Asthmatic bronchitis with exacerbation Nocturia Malignant neoplasm of colon, unspecified Heart disease Emphysema, unspecified Anxiety Frequency of micturition Chronic kidney disease, stage 3b Trigger finger Prostate CA Partial bowel obstruction Complete small bowel obstruction Elevated PSA Therapeutic drug monitoring Wears glasses Arthritis Easy bruising Excessive bleeding Back pain On home oxygen therapy Asthma Anemia Cancer Alcohol abuse Kidney stones Former smoker AAA (abdominal aortic aneurysm) Myocardial infarct Coronary artery disease Low back pain Epistaxis Sinus bradycardia Left inguinal hernia Essential (primary) hypertension Hyperlipidemia 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) History of ST elevation myocardial infarction (STEMI) (05/27/07) Insomnia Iron deficiency Abdominal aortic aneurysm (AAA) greater than 5.5 cm in diameter in male Hypoxia Bronchiectasis Allergy to dog dander Short bowel syndrome BPH (benign prostatic hyperplasia) Personal history of other malignant neoplasm of rectum, rectosigmoid junction, and anus Tachycardia 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 classification History of colon cancer COPD (chronic obstructive pulmonary disease) Home Medications ?Medication ?Instructions ?Recorded ?Last Taken ?Type Disability Placard #1 ea 02/11/23 Unknown Rx formoterol fumarate 20 mcg/2 mL 2 ml inhalation Q12H c opd #120 mL 05/06/23 08/08/24 Rx solution for nebulization (Perforomist) isosorbide mononitrate 30 mg 30 mg PO DAILY heart #30 TABLETS 12/10/23 08/08/24 Rx tablet,extended release 24 hr furosemide 40 mg tablet 40 mg PO DAILY PRN edema #30 tabs 12/13/23 Unknown Rx clopidogrel 75 mg tablet 75 mg PO DAILY anti platelet #90 02/10/24 08/08/24 Rx tabs verapamil 240 mg tablet,extended 240 mg PO QHS heart # 90 tabs 05/05/24 08/08/24 Rx release tamsulosin 0.4 mg capsule 0.4 mg PO BID prostate #180 caps 05/22/24 08/09/24 Rx budesonide 0.5 mg/2 mL suspension 0.5 mg (2 mL) inhala tion Q12H 06/14/24 08/08/24 Rx for nebulization breathing #180 mL hydrocortisone acetate 25 mg 25 mg ME QHS proctitis #1 2 ea 08/02/24 08/08/24 Rx rectal suppository (Anusol-HC) Allergy/AdvReac Type Severity Reaction Status Date / Time aspirin Allergy Shortness Verified 08/09/24 16:30 of breath adhesive AdvReac Rash Verified 08/09/24 16:30 amoxicillin trihydrate (From AdvReac Other Verified 08/09/24 16:30 Augmentin) atorvastatin calcium (From AdvReac leg cramps Verified 08/09/24 16:30 Lipitor) isopropyl alcohol AdvReac Rash Verified 08/09/24 16:30 metoprolol succinate (From AdvReac Rash Verified 08/09/24 16:30 Toprol XL) naproxen (From Naprosyn) AdvReac Shortness Verified 08/09/24 16:30 of breath paroxetine HCl (From Paxil) AdvReac Unknown Verified 08/09/24 16:30 potassium clavulanate (From AdvReac tingling Verified 08/09/24 16:30 Augmentin) all over propoxyphene HCl (From AdvReac Unknown Verified 08/09/24 16:30 Darvon) sertraline HCl (From Zoloft) AdvReac Unknown Verified 08/09/24 16:30 simvastatin (From Zocor) AdvReac Unknown Verified 08/09/24 16:30 tiotropium bromide (From AdvReac Other Verified 08/09/24 16:30 Spiriva with HandiHaler) Family History Father Heart disease Hypertension High cholesterol CVA (cerebral vascular accident) Mother Dementia Surgical History History of coronary artery stent placement H/O hernia repair History of left inguinal hernia repair (06/2021) Hx of thumb surgery History of esophagogastroduodenoscopy (EGD) Hx of colonoscopy Hx of sinus surgery History of endovascular stent graft for abdominal aortic aneurysm (AAA) (06/25/20) History of left heart catheterization (05/24/20) History of coronary artery stent placement (11/27/22) Hx of umbilical hernia repair Hx of appendectomy History of tonsillectomy and adenoidectomy Hx of bilateral cataract extraction Status post laparoscopic colectomy history of right eye surgery History of right inguinal hernia repair History of tonsillectomy Social History Smoking Status: Former smoker pack-years: 67 second hand exposure: No alcohol intake: former details: Previous nightly drinker. Stopped 2021 substance use type: marijuana caffeine: Yes Type: coffee Number of servings: 4 what type of physical activity do you participate in: weight training and otherdetails: pulmonary rehab frequency: 3-4 times per week additional social history: Has had blood transfusion ROS Constitutional Constitutional: Denies fatigue, fever(s), poor appetite, weight gain or weight loss Gastrointestinal Gastrointestinal: Denies belching, bloating, change in bowel habits, change in stool character, chewing difficulty, coffee ground emesis, constipation, cramping, diarrhea, dyspepsia, dysphagia, early satiety, excessive flatus, fecalincontinence, heartburn, hematemesis, hematochezia, hemorrhoids, loose stools, melena, nausea, odynophagia, rectal bleeding, tenesmus, vomiting or weight changes Physical Exam Narrative General: Alert, Oriented x3, Cooperative, No apparent distress HEENT: Atraumatic, PERRLA, EOMI, Normocephalic Oral: Moist Mucosa Neck: Supple, No JVD Lungs: Diminished, Normal air movement, No rhonchi, No wheeze, No rales Cardiovascular: Regular rate, Regular Rhythm, Normal S1, Normal S2, No murmurs Abdomen: Soft, Non Tender, Non-Distended, No Hepato-splenomegaly Extremities: No edema, Capillary Refill Less than 3 Seconds Skin: No rashes, No breakdown Musculoskeletal: No Tenderness to Palpation of Joints or Extremities Neurological: No focal neurological deficits, Motor Exam 5/5 strength throughout, Sensory exam intact to light touch and pain Psych/Mental Status: Normal Affect, Appropriate Lab / Micro Data 08/09/24 17:00 08/09/24 17:00 Labs: Laboratory Results - last 24 hr 08/09/24 17:00: WBC 7.9, RBC 4.01 L, Hgb 12.9 L, Hct 37.9 L, MCV 94.5 H, MCH 32.2 H, MCHC 34.0, RDW Std Deviation 42.2, RDW Coeff of Kylee 12.1, Plt Count 340,MPV 10.1, Immature Gran % (Auto) 0.400, Neut % (Auto) 74.9 H, Lymph % (Auto) 11.4 L, Clare % (Auto) 7.6, Eos % (Auto) 4.8, Baso % (Auto) 0.9, Absolute Neuts (auto) 5.9, Absolute Lymphs (auto) 0.90, Nucleated RBC % 0, PT 14.0, INR 1.1, APTT 26.6, Sodium 136, Potassium 3.6, Chloride 103, Carbon Dioxide 21.6, Anion Gap 12, BUN 24 H, Creatinine 1.44 H, Estim Creat Clear Calc 34.23 L, Est GFR (MDRD) Non-Af 49 L, BUN/Creatinine Ratio 16.9, Glucose 106 H, Calcium 9.8, BloodType O POSITIVE, Antibody Screen NEGATIVE Assessment & Plan Assessment/Plan (1) Personal history of other malignant neoplasm of large intestine: (2) Rectal bleeding: PLAN: Assessment and Plan Assessment and Plan (1) Rectal bleeding: Status: Acute (2) Personal history of other malignant neoplasm of large intestine: Status: Acute (3) Abdominal pain: Status: Acute Qualifiers: Abdominal location: generalized Qualified Code(s): R10.84 - Generalizedabdominal pain Orders: Orders CBC W/Diff, Automated Today K62.5 - Hemorrhage of anus and rectum Colonoscopy Today Medications: New h g Plan 79-year-old with lower GI bleeding. His PMH is significant for CAD, MIx2, cardiac stent x9 on plavix, moderate COPD with bronchiectasis complicated by chronic hypoxic respiratory failure, CKD3b, prostate CA, colon CA (2007). He complaints of BRBPR with BM for the past 6-8 weeks. The plan will be for colonoscopy tomorrow with treatment of angiodysplastic lesions. During his lastcolonoscopy he was not clean and had a lot of stool in his rectum. This did notallow for total treatment of his rectum. Charges/Coding Visit Charges Inpatient E&M: 44242 Init Hosp L3 08/09/242037 <Electronically signed by Faraz Gonzáles DO> Cosigner Signature (if applicable): CC: CODY Mckeon~ Signed [facility] Work Phone: 1(365) 174-271504-09-2025 History and physical note Author Rhys Fontana [facility] Note Date/Time August 09, 2024 7:10 pm [facility] Medical Records Department [address] [place] [address] H&P Exam - Hospitalist 08/09/24 1903 MR#: [id number] Acct: [id number] Name: BETTE CLEMENTS Rep #:[id number] : 1945 79 From: Rhys fallon MD PCP: CODY Burk Status:ADM KISHORE Location: [place] [address] HPI - General General Date of Admission: 08/09/24 HPI Narrative BETTE CLEMENTS, is a 79 M who presents to the hospital with chronic GI bleed. He presented today because he was having recurrence of his lower GI bleeding. He has a history of AVMs as well as hemorrhoids and was admitted at the end of July with this issue. Hemoglobin had stabilized at that point so he was discharged home with outpatient follow-up with GI. They evaluated him and his hemoglobin at that time was 12.7 which was on 08/02/2024. Around that visit he says that his bleeding had essentially resolved and then 2 nights ago he noticedbright red blood again per his rectum. No lightheadedness or dizziness, and no increased pallor. Denies any abdominal pain. Because he was having increased frequency of bowel movements he took Imodium so yesterday he had no bleeding however this morning he had significant clot burden with his bowel movement and therefore presented to the hospital. Hemoglobin today is 12.9, and he is hemodynamically very stable. We discussed likelihood that these are AVMs and that they will be a chronic burden and will likely never resolve however the ED physician did discuss the case with gastroenterology who recommended admission for colonoscopy tomorrow. [facility] Medical History (Updated 08/09/24 @ 18:[address] Viral Gutiérrez DO) GI bleed Marijuana use Prostate disease Shortness of breath on exertion Preoperative evaluation to rule out surgical contraindication Asthmatic bronchitis with exacerbation Nocturia Malignant neoplasm of colon, unspecified Heart disease Emphysema, unspecified Anxiety Frequency of micturition Chronic kidney disease, stage 3b Trigger finger Prostate CA Partial bowel obstruction Complete small bowel obstruction Elevated PSA Therapeutic drug monitoring Wears glasses Arthritis Easy bruising Excessive bleeding Back pain On home oxygen therapy Asthma Anemia Cancer Alcohol abuse Kidney stones Former smoker AAA (abdominal aortic aneurysm) Myocardial infarct Coronary artery disease Low back pain Epistaxis Sinus bradycardia Left inguinal hernia Essential (primary) hypertension Hyperlipidemia 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) History of ST elevation myocardial infarction (STEMI) (05/27/07) Insomnia Iron deficiency Abdominal aortic aneurysm (AAA) greater than 5.5 cm in diameter in male Hypoxia Bronchiectasis Allergy to dog dander Short bowel syndrome BPH (benign prostatic hyperplasia) Personal history of other malignant neoplasm of rectum, rectosigmoid junction, and anus Tachycardia 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 classification History of colon cancer COPD (chronic obstructive pulmonary disease) Home Medications ?Medication ?Instructions ?Recorded ?Last Taken ?Type Disability Placard #1 ea 02/11/23 Unknown Rx formoterol fumarate 20 mcg/2 mL 2 ml inhalation Q12H c opd #120 mL 05/06/23 08/08/24 Rx solution for nebulization (Perforomist) isosorbide mononitrate 30 mg 30 mg PO DAILY heart #30 TABLETS 12/10/23 08/08/24 Rx tablet,extended release 24 hr furosemide 40 mg tablet 40 mg PO DAILY PRN edema #30 tabs 12/13/23 Unknown Rx clopidogrel 75 mg tablet 75 mg PO DAILY anti platelet #90 02/10/24 08/08/24 Rx tabs verapamil 240 mg tablet,extended 240 mg PO QHS heart # 90 tabs 05/05/24 08/08/24 Rx release tamsulosin 0.4 mg capsule 0.4 mg PO BID prostate #180 caps 05/22/24 08/09/24 Rx budesonide 0.5 mg/2 mL suspension 0.5 mg (2 mL) inhala tion Q12H 06/14/24 08/08/24 Rx for nebulization breathing #180 mL hydrocortisone acetate 25 mg 25 mg ME QHS proctitis #1 2 ea 08/02/24 08/08/24 Rx rectal suppository (Anusol-HC) Allergy/AdvReac Type Severity Reaction Status Date / Time aspirin Allergy Shortness Verified 08/09/24 16:30 of breath adhesive AdvReac Rash Verified 08/09/24 16:30 amoxicillin trihydrate (From AdvReac Other Verified 08/09/24 16:30 Augmentin) atorvastatin calcium (From AdvReac leg cramps Verified 08/09/24 16:30 Lipitor) isopropyl alcohol AdvReac Rash Verified 08/09/24 16:30 metoprolol succinate (From AdvReac Rash Verified 08/09/24 16:30 Toprol XL) naproxen (From Naprosyn) AdvReac Shortness Verified 08/09/24 16:30 of breath paroxetine HCl (From Paxil) AdvReac Unknown Verified 08/09/24 16:30 potassium clavulanate (From AdvReac tingling Verified 08/09/24 16:30 Augmentin) all over propoxyphene HCl (From AdvReac Unknown Verified 08/09/24 16:30 Darvon) sertraline HCl (From Zoloft) AdvReac Unknown Verified 08/09/24 16:30 simvastatin (From Zocor) AdvReac Unknown Verified 08/09/24 16:30 tiotropium bromide (From AdvReac Other Verified 08/09/24 16:30 Spiriva with HandiHaler) Family History Father Heart disease Hypertension High cholesterol CVA (cerebral vascular accident) Mother Dementia Surgical History History of coronary artery stent placement H/O hernia repair History of left inguinal hernia repair (06/2021) Hx of thumb surgery History of esophagogastroduodenoscopy (EGD) Hx of colonoscopy Hx of sinus surgery History of endovascular stent graft for abdominal aortic aneurysm (AAA) (06/25/20) History of left heart catheterization (05/24/20) History of coronary artery stent placement (11/27/22) Hx of umbilical hernia repair Hx of appendectomy History of tonsillectomy and adenoidectomy Hx of bilateral cataract extraction Status post laparoscopic colectomy history of right eye surgery History of right inguinal hernia repair History of tonsillectomy Social History Smoking Status: Former smoker pack-years: 67 second hand exposure: No alcohol intake: former details: Previous nightly drinker. Stopped 2021 substance use type: marijuana caffeine: Yes Type: coffee Number of servings: 4 what type of physical activity do you participate in: weight training and otherdetails: pulmonary rehab frequency: 3-4 times per week additional social history: Has had blood transfusion ROS Constitutional Constitutional: Denies chills, fatigue, fever(s) or malaise Eyes Eyes: Denies blurry vision ENT HEENT: Denies headache(s) or nasal discharge Cardiovascular Cardiovascular: Denies chest pain, dyspnea on exertion or syncope Respiratory/Chest Respiratory/Chest: Denies cough, shortness of breath at rest or shortness of breath with exertion Gastrointestinal Gastrointestinal: Reports hematochezia; Denies constipation, diarrhea, nausea orvomiting Genitourinary Genitourinary: Denies dysuria Neurologic Neurologic: Denies focal weakness, numbness or tremor(s) Psychiatric Psychiatric: Denies anxiety or depression Vital Signs Vital Signs Vital Signs: 08/09/24 16:28 08/09/24 17:28 08/09/24 18:00 Temperature 98 F Temperature Source Oral Pulse Rate 77 88 68 Respiratory Rate 14 16 14 Blood Pressure 162/95 H 172/87 H 174/90 H Blood Pressure Mean 117 115 118 Pulse Ox 97 97 96 Oxygen Delivery Method Room Air Room Air Room Air 08/09/24 18:09 Temperature 98 F Temperature Source Pulse Rate 68 Respiratory Rate 14 Blood Pressure 174/90 H Blood Pressure Mean 118 Pulse Ox 96 Oxygen Delivery Method Weight Weight: 130 lb 6.4 oz Body Mass Index (BMI) 20.4 Physical Exam Narrative General: Alert, Oriented x3, Cooperative, No apparent distress HEENT: Atraumatic, PERRLA, EOMI, Normocephalic Oral: Moist Mucosa Neck: Supple, No JVD Lungs: Diminished, Normal air movement, No rhonchi, No wheeze, No rales Cardiovascular: Regular rate, Regular Rhythm, Normal S1, Normal S2, No murmurs Abdomen: Soft, Non Tender, Non-Distended, No Hepato-splenomegaly Extremities: No edema, Capillary Refill Less than 3 Seconds Skin: No rashes, No breakdown Musculoskeletal: No Tenderness to Palpation of Joints or Extremities Neurological: No focal neurological deficits, Motor Exam 5/5 strength throughout, Sensory exam intact to light touch and pain Psych/Mental Status: Normal Affect, Appropriate Results Lab / Micro Data 08/09/24 17:00 08/09/24 17:00 Labs: Laboratory Results - last 24 hr 08/09/24 17:00: WBC 7.9, RBC 4.01 L, Hgb 12.9 L, Hct 37.9 L, MCV 94.5 H, MCH 32.2 H, MCHC 34.0, RDW Std Deviation 42.2, RDW Coeff of Kylee 12.1, Plt Count 340,MPV 10.1, Immature Gran % (Auto) 0.400, Neut % (Auto) 74.9 H, Lymph % (Auto) 11.4 L, Clare % (Auto) 7.6, Eos % (Auto) 4.8, Baso % (Auto) 0.9, Absolute Neuts (auto) 5.9, Absolute Lymphs (auto) 0.90, Nucleated RBC % 0, PT 14.0, INR 1.1, APTT 26.6, Sodium 136, Potassium 3.6, Chloride 103, Carbon Dioxide 21.6, Anion Gap 12, BUN 24 H, Creatinine 1.44 H, Estim Creat Clear Calc 34.23 L, Est GFR (MDRD) Non-Af 49 L, BUN/Creatinine Ratio 16.9, Glucose 106 H, Calcium 9.8, BloodType O POSITIVE, Antibody Screen NEGATIVE Assessment & Plan Assessment/Plan (1) Angiodysplasia of colon: PLAN: Plan 1. Angiodysplasia of his colon with chronic lower GI bleeding ? Repeat hemoglobin in the morning ? Continue with prep for possible colonoscopy tomorrow ? Will hold his Plavix ? This is complicated by the fact that he has had radiation for prostate cancer and has some history of radiation proctitis he also has a history of internal/external hemorrhoids. 2. CAD status post stents/essential HTN ? Will have to discuss the continuation of Plavix and antiplatelets on discharge, does appear his stents were in 2022 ? Continue with his home blood pressure medication ? Will monitor make adjustments as necessary 3. BPH ? Stable ? Continue with Flomax DVT: SCDs 60 minutes was spent on direct patient care, including documentation as well as chart review and collaboration with colleagues Charges/Coding Visit Charges Inpatient E&M: 15299 Init Hosp L2 08/09/241909 <Electronically signed by Rhys Fontana MD> Cosigner Signature (if applicable): CC: [employer] RECOVERY OPERATOR-C Jeremiah Mckeon; Dr. Rhys Fontana MD~ Signed [facility] Work Phone: 1(239) 943-596003-28-2025 Discharge summary Author Rhys Fontana [facility] Note Date/Time July 28, 2024 12: 59pm [facility] Medical Records Department [address] [place] [address] Instructions for Home/Discharge Instructions 07/28/24 1257 MR#: [id number] Acct: [id number] Name: BETTE CLEMENTS Rep #:[id number] : 1945 79 From: Rhys fallon MD PCP: CODY Burk Status:ADM KISHORE Discharge Instructions Diet Discharge Diet: Low fat / Low cholesterol DC O2, CPAP, BIPAP needs Home O2 Discharge instructions: No Dressing / Incision Discharge Activity: Return to Normal Activity Dressing / Incision Call your doctor if you observe: Fever of 101 or Higher, Shortness of breath, Dizziness, Fainting spells, Swelling in the ankles, Chest pain and Increased palpitations (irregular heartbeat) Follow Up Care Test Results: Test results from this visit will be discussed in further detail at your follow- up appointment, if applicable. Discharge Plan Admission Admit Date/Time: 07/27/24 16:08 Attending Provider: Rhys Fontana Primary Care Provider: Jeremiah Mckeon [facility] Consulting Providers: Tiki Saldivar Discharge Orders/Prescriptions Prescriptions: Continued nitroglycerin 0.4 mg Tablet, Sublingual 0.4 mg sublingual Q5M PRN (Reason: Cardiac/Chest Pain) Qty: 20 0RF (DME) Disability Placard See Rx Instructions .ROUTE .MEDSUPPLY Qty: 1 0RF Rx Instructions: [id number] formoterol fumarate [Perforomist] 20 mcg/2 mL solution for nebulization 2 ml inhalation Q12H Qty: 120 11RF isosorbide mononitrate 30 mg tablet extended release 24 hr 30 mg PO DAILY Qty: 30 11RF furosemide 40 mg tablet 40 mg PO DAILY PRN (Reason: edema) Qty: 30 6RF clopidogrel 75 mg tablet 75 mg PO DAILY Qty: 90 3RF verapamil 240 mg tablet extended release 240 mg PO QHS Qty: 90 3RF tamsulosin 0.4 mg capsule 0.4 mg PO BID Qty: 180 1RF Rx Instructions: take one tab PO bid budesonide 0.5 mg/2 mL suspension for nebulization 0.5 mg inhalation Q12H Qty: 180 11RF Referrals / Follow Up: Marian Rodriguez PA [Med Staff - Adv Practice Prof] - 08/02/24 10:00 am Jeremiah Mckeon, AISHA-C [Primary Care Provider] - Within 1 Week Disposition Disposition (needs filled in before D/C Order can be placed): Home, Self Care 07/28/24 1300<Electronically signed by Rhys Fontana MD>Rhys Fontana MD CC: CAT[employer] RECOVERY OPERATOR-C Jeremiah Mckeon; Dr. Tiki Saldivar MD ~ Signed [facility] Work Phone: 1(498) 989-297803-28-2025 [facility]03-27-2025 Discharge summary Author Devon Reagan [facility] Note Date/Time July 27, 2024 5:1 5pm [facility] Medical Records Department [address] [place] [address] Emergency Department Summary 07/27/24 MR#: [id number] Acct: [id number] Name: BETTE CLEMENTS Rep #:[id number] : 1945 79 From: Devon huff DO PCP: CODY Burk Status:ADM KISHORE Location: [place] [address] HPI History of Present Illness Chief Complaint: GI Bleed Narrative Narrative: Chief complaint and HPI: 79-year-old male with history of CAD status post PCI onPlavix, prostate cancer status post radiation and currently on hormonal therapy with Dr. Montaño, previous GI bleed, previous colon cancer status post colonic resection presents for evaluation of GI bleed. Patient states he recently had a colonoscopy by Dr. Gonzáles. States he was told that his colon was burned from the radiation. Patient states that since his colon resection he has been having diarrhea for years. He states he had increased diarrhea yesterday. Today he noticed a large blood clot in his depends and states he had 2 more bowel movements that had blood in them. Patient endorses to drinking alcohol tohelp him sleep. States this has been going on for months. States he woke up at6 AM today and took 6 shots of whiskey to help him go back to sleep. He denies any fever, chills, shortness of breath, chest pain, abdominal pain, nausea, vomiting, dysuria. Review of systems: See HPI Medications: As listed on the chart Allergies: As listed on the chart PFSH: Per chart Vital signs: As listed on the chart. Reviewed. Physical exam: Gen: A&O x3, NAD Head: Normocephalic, atraumatic Eyes: No sclera icterus, conjunctiva clear, PERRL, EOMI ENT: Moist mucous membranes Neck: Trachea midline, No JVD CV: RRR, no murmurs, no peripheral edema Resp: Lungs CTA BL, no w/r/c GI: Abd soft, non-distended, non-tender, no r/r/g Rectal: Normal external examination. No evidence of hemorrhoids or fissures. Normal tone and sensation. No masses, fluctuance, or tenderness. No pain out of proportion. Brown stool on the glove. Musc: Full ROM, no deformity Skin: Warm, dry Neuro: Alert, oriented, grossly intact, sensation intact Psych: Cooperative, appropriate mood and affect [facility] Medical History Marijuana use Prostate disease Shortness of breath on exertion Preoperative evaluation to rule out surgical contraindication Asthmatic bronchitis with exacerbation Nocturia Malignant neoplasm of colon, unspecified Heart disease Emphysema, unspecified Anxiety Frequency of micturition Chronic kidney disease, stage 3b Trigger finger Prostate CA Partial bowel obstruction Complete small bowel obstruction Elevated PSA Therapeutic drug monitoring Wears glasses Arthritis Easy bruising Excessive bleeding Back pain On home oxygen therapy Asthma Anemia Cancer Alcohol abuse Kidney stones Former smoker AAA (abdominal aortic aneurysm) Myocardial infarct Coronary artery disease Low back pain Epistaxis Sinus bradycardia Left inguinal hernia Essential (primary) hypertension Hyperlipidemia 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) History of ST elevation myocardial infarction (STEMI) (05/27/07) Insomnia Iron deficiency Abdominal aortic aneurysm (AAA) greater than 5.5 cm in diameter in male Hypoxia Bronchiectasis Allergy to dog dander Short bowel syndrome BPH (benign prostatic hyperplasia) Personal history of other malignant neoplasm of rectum, rectosigmoid junction, and anus Tachycardia 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 classification History of colon cancer COPD (chronic obstructive pulmonary disease) Home Medications ?Medication ?Instructions ?Recorded ?Last Taken ?Type albuterol sulfate 90 mcg/actuation 2 puff inhalation Q 4H PRN 07/02/21 Unknown Rx aerosol inhaler (Ventolin HFA) shortness of breath or wheezing #18 grams nitroglycerin 0.4 mg sublingual 0.4 mg sublingual Q5M PRN 11/16/22 Unknown Rx tablet Cardiac/Chest Pain #20 tabs Disability Placard #1 ea 02/11/23 Unknown Rx formoterol fumarate 20 mcg/2 mL 2 ml inhalation Q12H c opd #120 mL 05/06/23 Unknown Rx solution for nebulization (Perforomist) ipratropium 20 mcg-albuterol 100 1 puff inhalation Q6H #4 grams 12/08/23 Unknown Rx mcg/actuation mist for inhalation (Combivent Respimat) isosorbide mononitrate 30 mg 30 mg PO DAILY #30 TABLET S 12/10/23 Unknown Rx tablet,extended release 24 hr furosemide 40 mg tablet 40 mg PO DAILY PRN edema #30 tabs 12/13/23 Unknown Rx clopidogrel 75 mg tablet 75 mg PO DAILY #90 tabs 10/ 024 07/12/24 Rx verapamil 240 mg tablet,extended 240 mg PO QHS heart # 90 tabs 05/05/24 Unknown Rx release tamsulosin 0.4 mg capsule 0.4 mg PO BID prostate #180 caps 05/22/24 Unknown Rx budesonide 0.5 mg/2 mL suspension 0.5 mg (2 mL) inhala tion Q12H #180 06/14/24 Unknown Rx for nebulization mL Allergy/AdvReac Type Severity Reaction Status Date / Time aspirin Allergy Shortness Verified 07/27/24 09:43 of breath adhesive AdvReac Rash Verified 07/27/24 09:43 amoxicillin trihydrate (From AdvReac Other Verified 07/27/24 09:43 Augmentin) atorvastatin calcium (From AdvReac leg cramps Verified 07/27/24 09:43 Lipitor) isopropyl alcohol AdvReac Rash Verified 07/27/24 09:43 metoprolol succinate (From AdvReac Rash Verified 07/27/24 09:43 Toprol XL) naproxen (From Naprosyn) AdvReac Shortness Verified 07/27/24 09:43 of breath paroxetine HCl (From Paxil) AdvReac Unknown Verified 07/27/24 09:43 potassium clavulanate (From AdvReac tingling Verified 07/27/24 09:43 Augmentin) all over propoxyphene HCl (From AdvReac Unknown Verified 07/27/24 09:43 Darvon) sertraline HCl (From Zoloft) AdvReac Unknown Verified 07/27/24 09:43 simvastatin (From Zocor) AdvReac Unknown Verified 07/27/24 09:43 tiotropium bromide (From AdvReac Other Verified 07/27/24 09:43 Spiriva with HandiHaler) Family History Father Heart disease Hypertension High cholesterol CVA (cerebral vascular accident) Mother Dementia Surgical History H/O hernia repair History of left inguinal hernia repair (06/2021) Hx of thumb surgery History of esophagogastroduodenoscopy (EGD) Hx of colonoscopy Hx of sinus surgery History of endovascular stent graft for abdominal aortic aneurysm (AAA) (06/25/20) History of left heart catheterization (05/24/20) History of coronary artery stent placement (11/27/22) Hx of umbilical hernia repair Hx of appendectomy History of tonsillectomy and adenoidectomy Hx of bilateral cataract extraction Status post laparoscopic colectomy history of right eye surgery History of right inguinal hernia repair History of tonsillectomy Social History Smoking Status: Former smoker pack-years: 67 second hand exposure: No alcohol intake: former details: Previous nightly drinker. Stopped 2021 substance use type: marijuana caffeine: Yes Type: coffee Number of servings: 4 what type of physical activity do you participate in: other details: pulmonary rehab frequency: 3-4 times per week additional social history: Has had blood transfusion EXAM Physical Exam Const Vital Signs: 07/27/24 09:43 07/27/24 11:26 07/27/24 12:06 Temperature 98.1 F Temperature Source Axillary Pulse Rate 91 76 89 Respiratory Rate 17 20 H 16 Respiratory Pattern Normal Blood Pressure 141/82 H 161/69 H Blood Pressure Mean 101 99 Pulse Ox 93 98 Oxygen Delivery Method Room Air 07/27/24 14:00 07/27/24 15:43 Temperature 97.3 F L Temperature Source Pulse Rate 78 78 Respiratory Rate 16 16 Respiratory Pattern Blood Pressure 146/78 H 146/78 H Blood Pressure Mean 100 100 Pulse Ox 98 98 Oxygen Delivery Method MDM MDM MDM Narrative Medical decision making narrative: 79-year-old male with history of CAD status post PCI on Plavix, prostate cancer status post radiation and currently on hormonal therapy with Dr. Montaño, previous GI bleed, previous colon cancer status post colonic resection presents for evaluation of GI bleed. Patient endorses drinking alcohol to help him sleep. He has no interest in detox although this was offered. On chart review, patient had a colonoscopy with Dr. Gonzáles on 07/18. He had polyps removed. Diverticulosis. Multiple nonbleeding colonic angiodysplastic lesions. Differential diagnosis includes but is not limited to colitis, bleeding from angiodysplastic lesions, electrolyte abnormality, alcohol intoxication, anemia. NS bolus ordered. Abdominal pain workup ordered including CT abdomen and pelvis. Patient states he is post to receive a DuoNeb in the morning at home. He was requesting one. This was ordered. Not endorsing shortness of breath. CBC without leukocytosis or anemia. Patient is not actively vomiting at this time patient is not actively vomiting at this time. CMP with dehydration. Patient has hypokalemia of 3.2 and an anion gap of 17. His bicarb is normal. He is at his baseline CKD/renal insufficiency. I suspect that his anion gap is secondary to dehydration and his alcohol use. Lactic acid 4.1. Again, suspect that this is secondary to dehydration and alcohol use. Another NS bolus orderedmaking a total 2 L. Will check lactic acid after fluids. Ethanol level 127. UA negative for UTI. CT abdomen pelvis shows no acute gastrointestinal hemorrhage. Wall thickening of the gastroesophageal junction and gastric cardiaregion with a small subserosal fluid collection posteriorly at the gastroesophageal junction. A Justyna-Cross tear, ulceration, or neoplasm are possible considerations. Small hiatal hernia is also noted. Recommend endoscopic evaluation. There is mild diffuse wall thickening of the rectosigmoid colon, possibly due to infectious or inflammatory proctocolitis. Remote prior resection with anastomosis with chronic thickening. On reevaluation, patient is still not endorsing any abdominal pain. He states thathe has not been nauseous or vomiting. Given CT abdomen pelvis, GI, Dr. Gonzáles was consulted. Given that patient has no abdominal pain or nausea and vomiting suspect that the fluid collection is incidental and does not correspond with theread from the radiologist clinically. Dr. Gonzáles does not suspect infectious etiology for the proctocolitis. Likely secondary to his dehydration and alcoholabuse causing bleeding. No need for antibiotics. Patient okay to discharge home from his perspective and follow-up outpatient. Patient and his son were updated over the results and the plan. Son and patient are unhappy with their care with GI. Asking to speak with patient advocacy. Dr. Gonzáles was made awareand patient advocacy informed. They spoke to the patient. Repeat lactic acid was performed after fluids. Lactic acid increasing to 4.8. Patient again is denying any abdominal pain, nausea, vomiting. His vitals are stable. He is nothaving any GI hemorrhage. At this point in time, no clear etiology for patient's lactic acid however patient will warrant admission. Maintenance fluids started. He confirmed understanding the plan. I spoke with hospitalist service, Dr. Saldivar. She accepted admission. I respoke with Dr. Gonzáles, no concern from GI perspective. Impression: 1. GI bleed secondary to low flow state with known radiation proctocolitis 2. Lactic acidosis of unknown etiology 3. Alcohol intoxication with alcohol abuse Lab Data Labs: Laboratory Results - last 24 hr 07/27/24 07/27/24 07/27/24 10:20 13:20 13:28 WBC 7.6 RBC 4.11 L Hgb 13.5 Hct 38.4 L MCV 93.4 MCH 32.8 H MCHC 35.2 RDW Std Deviation 42.6 RDW Coeff of Kylee 12.5 Plt Count 380 MPV 9.9 Immature Gran % (Auto) 0.300 Neut % (Auto) 73.6 H Lymph % (Auto) 13.4 L Clare % (Auto) 5.5 Eos % (Auto) 6.0 H Baso % (Auto) 1.2 H Absolute Neuts (auto) 5.6 Absolute Lymphs (auto) 1.02 Nucleated RBC % 0 Sodium 143 Potassium 3.2 L Chloride 102 Carbon Dioxide 24.1 Anion Gap 17 H BUN 33 H Creatinine 1.51 H Estim Creat Clear Calc 36.04 L Est GFR (MDRD) Non-Af 46 L BUN/Creatinine Ratio 21.7 H Glucose 84 Lactic Acid 4.1 H* 4.8 H* Calcium 9.8 Total Bilirubin 0.56 AST 27 ALT 15 Alkaline Phosphatase 74 Total Protein 6.5 Albumin 4.3 Globulin 2.2 Albumin/Globulin Ratio 1.9 Lipase 47 Urine Color Yellow Urine Clarity Clear Urine pH 6.0 Ur Specific [place] 1.015 Urine Protein 15 H Urine Glucose (UA) Normal Urine Ketones 5 H Urine Occult Blood Negative Urine Nitrite Negative Urine Bilirubin Negative Urine Urobilinogen Normal Ur Leukocyte Esterase Negative Urine RBC 0 SEEN Urine WBC 0 SEEN Ur Squamous Epith Cells 0 SEEN Urine Bacteria 0 SEEN Urine Mucus 0 SEEN Ethyl Alcohol 127.0 H Radiography Diagnostic Testing: Clinical Impression(s) from Imaging Studies Abdomen/Pelvis CT 07/27/24 12:22 IMPRESSION: 1. No acute gastrointestinal hemorrhage identified within the limits of this venous phase exam. 2. Wall thickening at the gastroesophageal junction and gastric cardia region with a small subserosal fluid collection posteriorly at the gastroesophageal junction. A Justyna-Cross tear, ulceration or neoplasm are possible considerations. A small hiatal hernia is also noted. Endoscopic evaluation is recommended. 3. Mild diffuse wall thickening of the rectosigmoid colon, possibly due to infectious or inflammatory proctocolitis. 4. Remote prior partial colonic resection at the rectosigmoid junction with chronic soft tissue thickening of the presacral region. 5. Mild colonic diverticulosis. 6. Other chronic findings in the body of the report. Reading Location: [facility] Discharge Plan Disposition Disposition: Acute Care Hospital [facility] Discharge Date/Time: 07/27/24 16:35 What to do if you have Problems For any increased pain, shortness of breath, bleeding, nausea or vomiting, chestpain, or any unexpected problems, contact your Primary Care Provider. Call [employer] [facility] ([phone]) or report to the closest Emergency Room. Call 911 if necessary. 07/27/24 1715 <Electronically signed by Devon Reagan DO> Cosigner Signature (if applicable): CC: CODY Mckeon ~ Signed [facility] Work Phone: 1(238) 939-106603-27-2025 History and physical note Author Tiki Saldivar [facility] Note Date/Time July 27, 2024 4:3 5pm [facility] Medical Records Department [address] [place] [address] H&P Exam - Hospitalist 07/27/24 1608 MR#: [id number] Acct: [id number] Name: BETTE CLEMENTS Rep #:[id number] : 1945 79 From: Tiki Saldivar MD PCP: CODY Burk Status:ADM KISHORE Location: [place] [address] HPI - General General Date of Admission: 07/27/24 Date of Service: 07/27/24 Chief Complaint: Diarrhea and blood in stool HPI Narrative BETTE CLEMENTS, is a 79M with history of coronary artery disease status post PCI onPlavix, prostate cancer status post radiation and current hormonal therapy with Dr. Montaño, previous colon cancer status post colon resection, previous GI bleedpresented to [facility] ED 07/27/2024 for evaluation of repeat GIbleed. He recently had colonoscopy by Dr. Gonzáles and patient states he was toldhis colon was burned from radiation. Since his colon resection years ago he has been having diarrhea and notes that yesterday his diarrhea increased and he noted a large blood clot in his depends today with 2 further bowel movements that have blood in them. Patient has also been drinking alcohol daily to help him sleep and has been doing so for months. States he woke up at 6 AM today andtook 6 shots of whiskey to help him go back to sleep. In the ED patient with heart rate of 91 and blood pressure 141/82, respiratory rate 17 with pulse ox of93%. Patient's hemoglobin 13.5, yesterday was 14, presently at baseline but is FOBT positive. Additionally creatinine 1.51 which seems to be at baseline and potassium of 3.2. Lactic acid also elevated at 4.1 without trend of 4.8. Patient had CT of the abdomen and pelvis in the ED which showed no acute hemorrhage identified but wall thickening at the GE junction and gastric cardia with small subserosal fluid collection posteriorly, Justyna-Cross tear and ulceration or neoplasm are considerations. Patient also with mild diffuse wall thickening of the rectosigmoid colon, possibly due to infectious or inflammatoryproctocolitis. GI contacted and it was felt that patient's dehydration and diarrhea were irritating his known lesions and that patient is stable and no acute inpatient management needed from a GI standpoint, vitally stable, hemoglobin stable. It was recommended the patient follow-up outpatient. Hospitalist contacted for admission for patient's dehydration and elevated lactic acid. Patient evaluated at bedside and he does report he has frequent diarrhea and has been having blood in his stool since before March, he has very poor p.o. intake both food and liquids but is continued to take his Lasix as prescribed for leg swelling, usually takes about 2 shots at bedtime but over this past week drank about 1/5, denies any day drinking, denies any history of alcohol withdraw or adverse symptoms if he does not drink. Reports he chronically has some abdominal tenderness centrally and this is unchanged, no nausea or vomiting, no urinary symptoms. [facility] Medical History Marijuana use Prostate disease Shortness of breath on exertion Preoperative evaluation to rule out surgical contraindication Asthmatic bronchitis with exacerbation Nocturia Malignant neoplasm of colon, unspecified Heart disease Emphysema, unspecified Anxiety Frequency of micturition Chronic kidney disease, stage 3b Trigger finger Prostate CA Partial bowel obstruction Complete small bowel obstruction Elevated PSA Therapeutic drug monitoring Wears glasses Arthritis Easy bruising Excessive bleeding Back pain On home oxygen therapy Asthma Anemia Cancer Alcohol abuse Kidney stones Former smoker AAA (abdominal aortic aneurysm) Myocardial infarct Coronary artery disease Low back pain Epistaxis Sinus bradycardia Left inguinal hernia Essential (primary) hypertension Hyperlipidemia 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) History of ST elevation myocardial infarction (STEMI) (05/27/07) Insomnia Iron deficiency Abdominal aortic aneurysm (AAA) greater than 5.5 cm in diameter in male Hypoxia Bronchiectasis Allergy to dog dander Short bowel syndrome BPH (benign prostatic hyperplasia) Personal history of other malignant neoplasm of rectum, rectosigmoid junction, and anus Tachycardia 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 classification History of colon cancer COPD (chronic obstructive pulmonary disease) Home Medications ?Medication ?Instructions ?Recorded ?Last Taken ?Type albuterol sulfate 90 mcg/actuation 2 puff inhalation Q 4H PRN 07/02/21 Unknown Rx aerosol inhaler (Ventolin HFA) shortness of breath or wheezing #18 grams nitroglycerin 0.4 mg sublingual 0.4 mg sublingual Q5M PRN 11/16/22 Unknown Rx tablet Cardiac/Chest Pain #20 tabs Disability Placard #1 ea 02/11/23 Unknown Rx formoterol fumarate 20 mcg/2 mL 2 ml inhalation Q12H c opd #120 mL 05/06/23 Unknown Rx solution for nebulization (Perforomist) ipratropium 20 mcg-albuterol 100 1 puff inhalation Q6H #4 grams 12/08/23 Unknown Rx mcg/actuation mist for inhalation (Combivent Respimat) isosorbide mononitrate 30 mg 30 mg PO DAILY #30 TABLET S 12/10/23 Unknown Rx tablet,extended release 24 hr furosemide 40 mg tablet 40 mg PO DAILY PRN edema #30 tabs 12/13/23 Unknown Rx clopidogrel 75 mg tablet 75 mg PO DAILY #90 tabs 1007/12/24 Rx verapamil 240 mg tablet,extended 240 mg PO QHS heart # 90 tabs 05/05/24 Unknown Rx release tamsulosin 0.4 mg capsule 0.4 mg PO BID prostate #180 caps 05/22/24 Unknown Rx budesonide 0.5 mg/2 mL suspension 0.5 mg (2 mL) inhala tion Q12H #180 06/14/24 Unknown Rx for nebulization mL Allergy/AdvReac Type Severity Reaction Status Date / Time aspirin Allergy Shortness Verified 07/27/24 09:43 of breath adhesive AdvReac Rash Verified 07/27/24 09:43 amoxicillin trihydrate (From AdvReac Other Verified 07/27/24 09:43 Augmentin) atorvastatin calcium (From AdvReac leg cramps Verified 07/27/24 09:43 Lipitor) isopropyl alcohol AdvReac Rash Verified 07/27/24 09:43 metoprolol succinate (From AdvReac Rash Verified 07/27/24 09:43 Toprol XL) naproxen (From Naprosyn) AdvReac Shortness Verified 07/27/24 09:43 of breath paroxetine HCl (From Paxil) AdvReac Unknown Verified 07/27/24 09:43 potassium clavulanate (From AdvReac tingling Verified 07/27/24 09:43 Augmentin) all over propoxyphene HCl (From AdvReac Unknown Verified 07/27/24 09:43 Darvon) sertraline HCl (From Zoloft) AdvReac Unknown Verified 07/27/24 09:43 simvastatin (From Zocor) AdvReac Unknown Verified 07/27/24 09:43 tiotropium bromide (From AdvReac Other Verified 07/27/24 09:43 Spiriva with HandiHaler) Family History Father Heart disease Hypertension High cholesterol CVA (cerebral vascular accident) Mother Dementia Surgical History H/O hernia repair History of left inguinal hernia repair (06/2021) Hx of thumb surgery History of esophagogastroduodenoscopy (EGD) Hx of colonoscopy Hx of sinus surgery History of endovascular stent graft for abdominal aortic aneurysm (AAA) (06/25/20) History of left heart catheterization (05/24/20) History of coronary artery stent placement (11/27/22) Hx of umbilical hernia repair Hx of appendectomy History of tonsillectomy and adenoidectomy Hx of bilateral cataract extraction Status post laparoscopic colectomy history of right eye surgery History of right inguinal hernia repair History of tonsillectomy Social History Smoking Status: Former smoker pack-years: 67 second hand exposure: No alcohol intake: former details: Previous nightly drinker. Stopped 2021 substance use type: marijuana caffeine: Yes Type: coffee Number of servings: 4 what type of physical activity do you participate in: other details: pulmonary rehab frequency: 3-4 times per week additional social history: Has had blood transfusion ROS ROS Narrative General: Denies fever/chills HENT: Denies headache, denies stuffy nose, denies sore throat but does wake up and notes he has a lot of mucus production but this is not new EYES: Denies changes in vision Resp: Denies cough, some chronic shortness of breath with the COPD Cardiac: Denies chest pain GI: Reports some chronic abdominal pain with no change from baseline, has continued to have diarrhea, noted some further blood in stool today, he is unsure if he has had any more since coming to the ED as he has a depends on, no nausea : Denies changes in urination Extremity: Gets some intermittent swelling in lower extremities MSK: Denies weakness Neuro: Denies any numbness/tingling Heme: Easy bruising Skin: Denies rashes Psychiatric: No complaints voiced Vital Signs Vital Signs Vital Signs: 07/27/24 09:43 07/27/24 11:26 07/27/24 12:06 Temperature 98.1 F Temperature Source Axillary Pulse Rate 91 76 89 Respiratory Rate 17 20 H 16 Respiratory Pattern Normal Blood Pressure 141/82 H 161/69 H Blood Pressure Mean 101 99 Pulse Ox 93 98 Oxygen Delivery Method Room Air 07/27/24 14:00 07/27/24 15:43 Temperature 97.3 F L Temperature Source Pulse Rate 78 78 Respiratory Rate 16 16 Respiratory Pattern Blood Pressure 146/78 H 146/78 H Blood Pressure Mean 100 100 Pulse Ox 98 98 Oxygen Delivery Method Weight Weight: 65.3 kg Body Mass Index (BMI) 22.5 Results Lab / Micro Data 07/27/24 10:20 07/27/24 10:20 Labs: Laboratory Results - last 24 hr 07/27/24 10:20: WBC 7.6, RBC 4.11 L, Hgb 13.5, Hct 38.4 L, MCV 93.4, MCH 32.8 H,MCHC 35.2, RDW Std Deviation 42.6, RDW Coeff of Kylee 12.5, Plt Count 380, MPV 9.9, Immature Gran % (Auto) 0.300, Neut % (Auto) 73.6 H, Lymph % (Auto) 13.4 L, Clare % (Auto) 5.5, Eos % (Auto) 6.0 H, Baso % (Auto) 1.2 H, Absolute Neuts (auto) 5.6, Absolute Lymphs (auto) 1.02, Nucleated RBC % 0, Sodium 143, Potassium 3.2 L, Chloride 102, Carbon Dioxide 24.1, Anion Gap 17 H, BUN 33 H, Creatinine 1.51 H, Estim Creat Clear Calc 36.04 L, Est GFR (MDRD) Non-Af 46 L, BUN/Creatinine Ratio 21.7 H, Glucose 84, Lactic Acid 4.1 H*, Calcium 9.8, Total Bilirubin 0.56, AST 27, ALT 15, Alkaline Phosphatase 74, Total Protein 6.5, Albumin 4.3, Globulin 2.2, Albumin/Globulin Ratio 1.9, Lipase 47, Ethyl Alcohol 127.0 H 07/27/24 13:20: Urine Color Yellow, Urine Clarity Clear, Urine pH 6.0, Ur Specific [place] 1.015, Urine Protein 15 H, Urine Glucose (UA) Normal, Urine Ketones 5 H, Urine Occult Blood Negative, Urine Nitrite Negative, Urine Bilirubin Negative, Urine Urobilinogen Normal, Ur Leukocyte Esterase Negative, Urine RBC 0 SEEN, Urine WBC 0 SEEN, Ur Squamous Epith Cells 0 SEEN, Urine Bacteria 0 SEEN, Urine Mucus 0 SEEN 07/27/24 13:28: Lactic Acid 4.8 H* Micro: Microbiology 07/27/24 10:12 Stool Stool Occult Blood (WINTER) - Final Occult Blood Positive Imaging Radiology Impression Abdomen/Pelvis CT 07/27/24 12:22 IMPRESSION: 1. No acute gastrointestinal hemorrhage identified within the limits of this venous phase exam. 2. Wall thickening at the gastroesophageal junction and gastric cardia region with a small subserosal fluid collection posteriorly at the gastroesophageal junction. A Justyna-Cross tear, ulceration or neoplasm are possible considerations. A small hiatal hernia is also noted. Endoscopic evaluation is recommended. 3. Mild diffuse wall thickening of the rectosigmoid colon, possibly due to infectious or inflammatory proctocolitis. 4. Remote prior partial colonic resection at the rectosigmoid junction with chronic soft tissue thickening of the presacral region. 5. Mild colonic diverticulosis. 6. Other chronic findings in the body of the report. Reading Location: [facility] Assessment & Plan Assessment/Plan (1) Elevated lactic acid level: (2) Dehydration: PLAN: Plan # Elevated lactic acid and dehydration -Patient reports very poor p.o. intake on top of diarrhea and taking Lasix -Appears clinically dehydrated -Initial lactic acid 4.3 and up trended to 4.8, patient on IV fluids -Will recheck BMP, initial BMP with a gap of 17 however bicarb within normal limits -Also check VBG -Will repeat lactic acid later for further assessment as well # Blood per rectum in setting of chronic changes from radiation and partial colonic resection in 2007 for colon cancer - CT of the abdomen and pelvis in the ED which showed no acute hemorrhage identified but wall thickening at the GE junction with mild diffuse wall thickening of the rectosigmoid colon -ED physician discussed with patient's carbon brush maker, patient just had colonoscopy 07/18/2024 with two 7 mm polyps removed and multiple nonbleeding colonic angiodysplastic lesions. Per report it was felt that patient's bleedingwas from his diarrhea and dehydration and that this can be followed up outpatient as it was part of his chronic problems that are being managed -Hemoglobin was 13.5 which is his baseline -Continue home PPI -Will continue home Plavix unless significant drop or significant bleeding necessitating inpatient GI consult -Expect patient's hemoglobin will decrease tomorrow given he is receiving IV fluids, if drop is out of proportion or patient having significant blood per rectum could consider recontacting GI to assess for any updated recommendations. -Repeat hemoglobin in the a.m. or sooner if there are concerns for increased bleeding # Alcohol abuse -EtOH 127 in the ED -Patient reports he drinks nightly -Denies any history of withdrawal or DTs or withdrawal symptoms if he does not drink -Did drink somewhat more this week compared to usual -CIWA with as needed Ativan -Thiamine and folate #Hypokalemia -Replace -Repeat in the AM # CKD stage III a -Appears to be at baseline -Avoid nephrotoxic agents -Daily BMPs # History of borderline EF -In 2022 patient's EF was estimated at 45% with wall motion abnormalities, unable to assess diastolic function -Daily weights, I's and O's -Will hydrate cautiously -Appears patient is feeling Imdur so we will continue, will need to verify if patient is on verapamil prior to continuing # COPD -Continue home inhalers -Albuterol as needed # History of coronary artery disease status post PCI -History of 9 stents -On home Plavix # Prostate cancer status post radiation and currently on hormonal therapy -Follows with Dr. Montaño #Chronic BPH with obstruction -Continue home medications #DVT ppx: SCDs Tiki Saldivar MD Charges/Coding Visit Charges Inpatient E&M: 26769 Init Hosp L2 07/27/24 1635 <Electronically signed by Tiki Saldivar MD> Cosigner Signature (if applicable): CC: [employer]OV[employer] OPERATOR-C Jeremiah Mckeon; Dr. Tiki Saldivar MD~ Signed [facility] Work Phone: [phone]) [phone] Radiology Diagnostic study [facility]03-18-2025 Procedure [facility]03-18-2025 Procedure [facility]03-18-2025 Consult note Author Sinan Parmar [facility] Note Date/Time July 18, 2024 12: 40pm [facility] Medical Records Department [address] [facility] [place] [address] Pre-Anesthesia Evaluation 07/18/24 1236 MR#: [id number] Acct: [id number] Name: BETTE CLEMENTS Rep #:[id number] : 1945 79 From: Sinan Parmar MD PCP: CODY Burk Status:REG SDC Y Race: C Location: [place] [address] ASA Classification* ASA Classification ASA Classification: 3 (Patient is a COPD-er, given duonebs in preop. He has an EXTENSIVE cardiac history. Please keep BP within 20% of his starting. ) Assessment & Plan Anesthesia* Anesthesia Assessment Anesthesia Assessment: Discussed sedation and/or anesthesia options, risks, benefits, and alternatives with patient/parents/legal guardian/POA. Questions invited. The patient/parents/legal guardian/POA seems to understand and agrees to proceedwith anesthesia plan. Reviewed the physical assessment, medical history, allergy history and patient home medications list prior to surgery/procedure/anesthetic and documented any changes. Performed airway and anesthesia risk assessments. Anesthesia Type Anesthesia Type: General History Source History Obtained from:: Patient and Chart Anesthesia Focused Assessment* Temperature: 97.8 F Pulse Rate: 90 Blood Pressure: 154/84 Respiratory Rate: 16 Pulse Ox: 96 Oxygen Delivery Method: Nasal Cannula Oxygen Flow Rate (L/min): 3 Airway Assessment Mouth opens: >3 cm Mallampati Score: II Teeth Condition: Chipped/Broken (poor dentition) and Missing (many missing) Focused Labs Anesthesia Preop lab: CBC WBC 10.2 K/mm3 (4.4-11.0) 04/30/24 10:54 04/30/24 RBC 3.68 M/mm3 (4.6-6.2) L 04/30/24 10:54 04/30/24 Hgb 12.7 g/dL (13.0-16.5) L 04/30/24 10:54 4 Hct 37.8 % (40-54) L 04/30/24 10:54 04/30/24 Plt Count 335 K/mm3 (150-450) 04/30/24 10:54 04/30/24 CHEMISTRY Potassium 3.5 mmol/L (3.5-5.1) 04/30/24 10:54 04/30/24 Sodium 141 mmol/L (136-145) 04/30/24 10:54 04/30/24 Magnesium 2.2 mg/dL (1.6-2.6) 11/14/22 04:10 11/14/22 Phosphorus 3.1 mg/dL (2.5-4.9) 11/16/22 03:00 11/16/22 BUN 20 mg/dL (7-18) H 04/30/24 10:54 04/30/24 Creatinine 1.42 mg/dL (0.70-1.30) H 04/30/24 10:54 Glucose 114 mg/dL (74-106) H 04/30/24 10:54 04/30/24 TSH 1.37 uIU/mL (0.358-3.74) 01/31/20 15:05 COAG PT 13.1 SECONDS (11.7-14.9) 11/14/22 02:10 Pre-Assessment Diagnosis/Proposed Procedure Planned Operative Procedure(s): CSCOPE Anesthesia History Anesthesia History - manager urology: Anesthesia History - manager urology Hx Hospitalization No 07/17/24 13:20 Any Problems With Anesthesia Yes: DURING AAA PROCEDURE PT 07/17/24 13:20 WOKE UP Cholinesterase deficiency No 07/17/24 13:20 You/Your Family Experience No 07/17/24 13:20 fever (hyperthermia) with Relationship Recent Exposure to Contagious No 07/18/24 12:21 Disease Does patient have nerve No 07/17/24 13:20 stimulator Patient instructed to have device shut off --Does patient have Pacemaker No 07/18/24 12:21 or ICD? When Was Last Pacemaker Check QUESTION #4 FULL TEXT: You/Your Family Experience fever (hyperthermia) with Anesthesia Last Oral Intake Last Oral intake: Last Oral Intake NPO since 09:30 07/18/24 12:21 Meds taken in AM with sips of No 07/18/24 12:21 water? Meds patient instructed to take am of surgery PONV PONV - manager urology: PONV - manager urology Female No 07/17/24 13:20 HX of Motion Sickness Yes 07/17/24 13:20 HX of N/V After Surgery No 07/17/24 13:20 Non-Smoker Yes 07/17/24 13:20 Duration of Surgery greater No 07/17/24 13:20 than 60 minutes Number of Risk Factors 2 07/17/24 13:20 PONV Score Moderate Risk 07/17/24 13:20 Height & Weight Height & Weight: Anesthesia: Height & Weight Height 5 ft 7 in 07/18/24 12:21 Weight: 61.1 kg 07/18/24 12:21 Body Mass Index (BMI) 21.1 07/18/24 12:21 Respiratory Assessment Respiratory Assessment - manager urology: Respiratory Tract Infection Hx - manager urology Hx Respiratory Tract Infection No 07/17/24 13:20 STOP Sleep Apnea STOP Sleep Apnea - manager urology: STOP Sleep Apnea - manager urology Hx Hypertension Yes 07/17/24 13:20 Hx Sleep Apnea Yes: 3L O2 AT NIGHT 07/17/24 13:20 CPAP No 07/17/24 13:20 BIPAP No 07/17/24 13:20 Do you snore loudly (louder than talking or can be heard Do you often feel tired/ fatigued/ sleepy during daytime? Has anyone observed you stop breathing during sleep? STOP Results Positive 07/17/24 13:20 QUESTION #5 FULL TEXT : Do you snore loudly (louder than talking or can be heard through closed doors)? 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 Specify any problems Hx of Preganancy in last 3 N/A 07/17/24 13:20 Months Nurse Filling Out Transfusion NBUCHER 07/17/24 13:20 & Questions: Date: 07/17/24 07/17/24 13:20 Time: 07/17/24 13:20 Patient unable to answer at this time (ie. confused, unrespo /Reproduction History /Reproductive History - manager urology: /Reproductive Hx- manager urology Hx Now No 07/17/24 13:20 Gestational Age (in weeks): EDC: Hx Hx Para Hx Section SAB No 07/17/24 13:20 PFS Medical History (Updated 07/17/24 @ 13:30 by Blanca Adrian) Marijuana use Prostate disease Shortness of breath on exertion Preoperative evaluation to rule out surgical contraindication Asthmatic bronchitis with exacerbation Nocturia Malignant neoplasm of colon, unspecified Heart disease Emphysema, unspecified Anxiety Frequency of micturition Chronic kidney disease, stage 3b Trigger finger Prostate CA Partial bowel obstruction Complete small bowel obstruction Elevated PSA Therapeutic drug monitoring Wears glasses Arthritis Easy bruising Excessive bleeding Back pain On home oxygen therapy Asthma Anemia Cancer Alcohol abuse Kidney stones Former smoker AAA (abdominal aortic aneurysm) Myocardial infarct Coronary artery disease Low back pain Epistaxis Sinus bradycardia Left inguinal hernia Essential (primary) hypertension Hyperlipidemia 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) History of ST elevation myocardial infarction (STEMI) (05/27/07) Insomnia Iron deficiency Abdominal aortic aneurysm (AAA) greater than 5.5 cm in diameter in male Hypoxia Bronchiectasis Allergy to dog dander Short bowel syndrome BPH (benign prostatic hyperplasia) Personal history of other malignant neoplasm of rectum, rectosigmoid junction, and anus Tachycardia 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 classification History of colon cancer COPD (chronic obstructive pulmonary disease) Home Medications ?Medication ?Instructions ?Recorded ?Last Taken ?Type albuterol sulfate 90 mcg/actuation 2 puff inhalation Q 4H PRN 07/02/21 Unknown Rx aerosol inhaler (Ventolin HFA) shortness of breath or wheezing #18 grams nitroglycerin 0.4 mg sublingual 0.4 mg sublingual Q5M PRN 11/16/22 Unknown Rx tablet Cardiac/Chest Pain #20 tabs Disability Placard #1 ea 02/11/23 Unknown Rx formoterol fumarate 20 mcg/2 mL 2 ml inhalation Q12H c opd #120 mL 05/06/23 Unknown Rx solution for nebulization (Perforomist) ipratropium 20 mcg-albuterol 100 1 puff inhalation Q6H #4 grams 12/08/23 Unknown Rx mcg/actuation mist for inhalation (Combivent Respimat) isosorbide mononitrate 30 mg 30 mg PO DAILY #30 TABLET S 12/10/23 Unknown Rx tablet,extended release 24 hr furosemide 40 mg tablet 40 mg PO DAILY PRN edema #30 tabs 12/13/23 Unknown Rx clopidogrel 75 mg tablet 75 mg PO DAILY #90 tabs 01/3107/12/24 Rx verapamil 240 mg tablet,extended 240 mg PO QHS heart # 90 tabs 05/05/24 Unknown Rx release tamsulosin 0.4 mg capsule 0.4 mg PO BID prostate #180 caps 05/22/24 Unknown Rx budesonide 0.5 mg/2 mL suspension 0.5 mg (2 mL) inhala tion Q12H #180 06/14/24 Unknown Rx for nebulization mL Allergy/AdvReac Type Severity Reaction Status Date / Time aspirin Allergy Shortness Verified 07/18/24 12:19 of breath adhesive AdvReac Rash Verified 07/18/24 12:19 amoxicillin trihydrate (From AdvReac Other Verified 07/18/24 12:19 Augmentin) atorvastatin calcium (From AdvReac leg cramps Verified 07/18/24 12:19 Lipitor) isopropyl alcohol AdvReac Rash Verified 07/18/24 12:19 metoprolol succinate (From AdvReac Rash Verified 07/18/24 12:19 Toprol XL) naproxen (From Naprosyn) AdvReac Shortness Verified 07/18/24 12:19 of breath paroxetine HCl (From Paxil) AdvReac Unknown Verified 07/18/24 12:19 potassium clavulanate (From AdvReac tingling Verified 07/18/24 12:19 Augmentin) all over propoxyphene HCl (From AdvReac Unknown Verified 07/18/24 12:19 Darvon) sertraline HCl (From Zoloft) AdvReac Unknown Verified 07/18/24 12:19 simvastatin (From Zocor) AdvReac Unknown Verified 07/18/24 12:19 tiotropium bromide (From AdvReac Other Verified 07/18/24 12:19 Spiriva with HandiHaler) Family History Father Heart disease Hypertension High cholesterol CVA (cerebral vascular accident) Mother Dementia Surgical History (Updated 07/17/24 @ 13:30 by Blanca Adrian) H/O hernia repair History of left inguinal hernia repair (06/2021) Hx of thumb surgery History of esophagogastroduodenoscopy (EGD) Hx of colonoscopy Hx of sinus surgery History of endovascular stent graft for abdominal aortic aneurysm (AAA) (06/25/20) History of left heart catheterization (05/24/20) History of coronary artery stent placement (11/27/22) Hx of umbilical hernia repair Hx of appendectomy History of tonsillectomy and adenoidectomy Hx of bilateral cataract extraction Status post laparoscopic colectomy history of right eye surgery History of right inguinal hernia repair History of tonsillectomy Social History Smoking Status: Former smoker pack-years: 67 second hand exposure: No alcohol intake: former details: Previous nightly drinker. Stopped 2021 substance use type: marijuana caffeine: Yes Type: coffee Number of servings: 4 what type of physical activity do you participate in: other details: pulmonary rehab frequency: 3-4 times per week additional social history: Has had blood transfusion Review of Systems (Anesthesia) ROS Narrative System reviewed and no additional complaints, except as documented. Physical Exam Const alert, oriented x3 and average body habitus Resp normal respiratory effort and normal air movement Effort and Inspection: labored and actively coughing Auscultation: wheezes Cardio regular rate, regular rhythm, no murmurs and diaphoretic 07/18/24 1240 <Electronically signed by Sinan Parmar MD> Date _ Sinan Parmar MD [facility] Signature: Date CC: ~ Signed [facility] Work Phone: 1(291) 655-132003-18-2025 [facility]02-12-2025 Evaluation note* Diagnosis Onset Date Resolution Status Admit Date Multiple nodules of lung acute June 14, 2024 1:41pm Hypoxia chronic June 14, 2024 1:41pm Stage 2 moderate COPD by GOL D classification chronic June 14 1:41pm Personal history of other malignant neoplasm of large intestine inactive July 18, 2024 11:49am Rectal bleeding inactive July 11:49am Dehydration acute July 27, 025 4:08pm Elevated lactic acid level resolved July 27, 2024 4:08pm Abnormal abdominal CT scan acute August 02, 2024 9:53am Radiation proctitis acute August 02, 2024 9:53am Rectal bleeding inactive August 9:53am Angiodysplasia of colon acute A pri2024 5:09pm Personal history of other malignant neoplasm of large intestine inactive August 10, 2024 5:09pm Rectal bleeding inactive August 5:09pm [facility] Work Phone: 1(120) 260-724501-09-2025 Evaluation note* Diagnosis Onset Date Resolution Status Admit Date Carotid stenosis, left acute Ja nuary 2024 10:53am History of endovascular sten t graft for abdominal aortic aneurysm acute May 11 10:53am Multiple nodules of lung acute June 14, 2024 1:41pm Hypoxia chronic June 14, 2024 1:41pm Stage 2 moderate COPD by GOL D classification chronic June 14 025 1:41pm Personal history of other malignant neoplasm of large intestine inactive July 18, 2024 11:49am Rectal bleeding inactive July 11:49am Dehydration acute July 27, 025 4:08pm Elevated lactic acid level resolved July 27, 2024 4:08pm Abnormal abdominal CT scan acute August 02, 2024 9:53am Radiation proctitis acute August 02, 2024 9:53am Rectal bleeding inactive August 9:53am Angiodysplasia of colon acute A pri2024 5:09pm Personal history of other malignant neoplasm of large intestine inactive August 10, 2024 5:09pm Rectal bleeding inactive August 5:09pm [facility] Work Phone: 1(340) 444-728312-18-2024 Evaluation note* Diagnosis Onset Date Resolution Status Admit Date BPH (benign prostatic hyperplasia) chronic April 19, 024 12:55pm COPD (chronic obstructive pulmonary disease) chronic April 12:55pm Hypertension chronic April 12:55pm Insomnia chronic April 19, 2024 12:55pm Hypokalemia resolved April 12:55pm Carotid stenosis, left acute [facility] 2024 10:53am History of endovascular sten t graft for abdominal aortic aneurysm acute May 11 10:53am Multiple nodules of lung acute June 14, 2024 1:41pm Hypoxia chronic June 14, 2024 1:41pm Stage 2 moderate COPD by GOL D classification chronic June 14 025 1:41pm Personal history of other malignant neoplasm of large intestine acute July 18, 2024 11:49am Rectal bleeding acute July 11:49am Dehydration acute July 27 025 4:08pm Elevated lactic acid level acute July 27, 2024 4:08pm [facility] Work Phone: 1(950) 454-528712-18-2024 Evaluation note* Diagnosis Onset Date Resolution Status Admit Date BPH (benign prostatic hyperplasia) chronic April 19, 2 024 12:55pm COPD (chronic obstructive pulmonary disease) chronic April 12:55pm Hypertension chronic April 12:55pm Insomnia chronic April 19, 2024 12:55pm Hypokalemia resolved April 12:55pm Carotid stenosis, left acute [facility] 2024 10:53am History of endovascular sten t graft for abdominal aortic aneurysm acute May 11 10:53am Multiple nodules of lung acute June 14, 2024 1:41pm Hypoxia chronic June 14, 2024 1:41pm Stage 2 moderate COPD by GOL D classification chronic June 14 1:41pm Personal history of other malignant neoplasm of large intestine acute July 18, 2024 11:49am Rectal bleeding acute July 11:49am Dehydration acute July 27 4:08pm Elevated lactic acid level resolved July 27, 2024 4:08pm Abnormal abdominal CT scan acute August 02, 2024 9:53am Radiation proctitis acute August 02, 2024 9:53am Rectal bleeding acute August 9:53am [facility] Work Phone: 1(578) 541-103612-18-2024 Evaluation note* Diagnosis Onset Date Resolution Status Admit Date BPH (benign prostatic hyperplasia) chronic April 19, 024 12:55pm COPD (chronic obstructive pulmonary disease) chronic April 12:55pm Hypertension chronic April 12:55pm Insomnia chronic April 19, 2024 12:55pm Hypokalemia resolved April 12:55pm Carotid stenosis, left acute [facility] 2024 10:53am History of endovascular sten t graft for abdominal aortic aneurysm acute May 11 10:53am Multiple nodules of lung acute June 14, 2024 1:41pm Hypoxia chronic June 14, 2024 1:41pm Stage 2 moderate COPD by GOL D classification chronic June 14 1:41pm Personal history of other malignant neoplasm of large intestine acute July 18, 2024 11:49am Rectal bleeding acute July 11:49am Dehydration acute July 27 025 4:08pm Elevated lactic acid level resolved July 27, 2024 4:08pm Abnormal abdominal CT scan acute August 02, 2024 9:53am Radiation proctitis acute August 02, 2024 9:53am Rectal bleeding acute August 9:53am Angiodysplasia of colon acute A pril 2024 5:09pm Personal history of other malignant neoplasm of large intestine acute August 10, 2024 5:09pm Rectal bleeding acute August 5:09pm [facility] Work Phone: 1(259) 422-843612-15-2024 Consult note Author Sinan Parmar [facility] Note Date/Time July 18, 2024 3:5 7pm [facility] Medical Records Department [address] [place] [address] Anesthesia Postop Eval II 07/18/24 1523 MR#: [id number] Acct: [id number] Name: BETTE CLEMENTS Rep #:[id number] : 1945 79 From: Sinan Parmar MD PCP: CODY Burk Status:REG SDC Y Race: C Location: [place] [address] Anesthesia Postop Eval I Sum Postop Eval Completion status Anesthesia document: Postop Eval 1 completed: Yes Anesthesia Postop Eval I Summary Anesthesia Postop Eval I Summary: Anesthesia Postop Eval I: Assessment Summary Airway patent Yes 07/18/24 15:02 [employer] Spontaneous unlabored Yes 07/18/24 15:02 [employer] respirations Mental status Awake 07/18/24 15:02 [employer] nausea No 07/18/24 15:02 [employer] Vomiting No 07/18/24 15:02 [employer] Anesthesia Postop Eval I: Fluid Summary Crystalloid volume administer 10 07/18/24 15:02 [employer]HB[employer] (ml) Colloids volume administered ( ml) Blood Product volume administered (ml) Total IV fluid infused 10 07/18/24 15:02 [employer]HB[employer] Anesthesia Postop Eval I: Summary Notes Anesthesia Complication No 07/18/24 15:02 [employer]HB[employer] Anesthesia Complication Comment: Post-operative progress note Anesthesia: Postop Eval II Evaluation Mental status: Awake Pain Level: 0 nausea: No Vomiting: No Complications Anesthesia Complication: No 07/18/24 1523 <Electronically signed by Sinan Parmar MD> Date _ Sinan Parmar MD Cosigner Signature: Date CC: ~ Signed [facility] Work Phone: 1(899) 325-205311-19-2024 Evaluation note* Diagnosis Onset Date Resolution Status Admit Date Abdominal pain acute March 032023 1:25pm Personal history of other malignant neoplasm of large intestine acute March 21, 2 024 1:25pm Rectal bleeding acute March 21, 2024 1:25pm BPH (benign prostatic hyperplasia) chronic April 19, 2 024 12:55pm COPD (chronic obstructive pulmonary disease) chronic April 12:55pm Hypertension chronic April 12:55pm Insomnia chronic April 19, 2024 12:55pm Hypokalemia resolved April 12:55pm Carotid stenosis, left acute Ja [facility] 2024 10:53am History of endovascular sten t graft for abdominal aortic aneurysm acute May 11 10:53am Multiple nodules of lung acute June 14, 2024 1:41pm Hypoxia chronic June 14, 2024 1:41pm Stage 2 moderate COPD by GOL D classification chronic June 14, 2 025 1:41pm Personal history of other malignant neoplasm of large intestine acute July 18, 2024 11:49am Rectal bleeding acute July 11:49am [facility] Work Phone: 1(982) 396-766307-17-2023 Progress note Author Heri Ewing [facility] November 16, 2022 10:55am Note Date/Time November 16, 2022 7:[address] [facility] Medical Records Department [address] [place] [id number] Progress Note - Hospitalist 11/16/22 0756 MR#: [id number] Acct: [id number] Name: BETTE CLEMENTS Rep #:[id number] : 1945 77 From: Heri Ewing DO PCP: Dr. Spenser Sanchez MD Status:A DM IN Location: [place] [id number] Reason for Visit Reason for Visit: Diagnoses Malignant neoplasm of prostate (11/14/22) Hyperlipidemia, unspecified (11/14/22) Essential (primary) hypertension (11/14/22) Non-ST elevation (NSTEMI) myocardial infarction (11/14/22) Atherosclerotic heart disease of [place] coronary artery without angina pectoris (11/14/22) Old myocardial infarction (11/14/22) Chronic obstructive pulmonary disease, unspecified (11/14/22) Chronic kidney disease, stage 3b (11/14/22) Presence of coronary angioplasty implant and graft (11/14/22) Presence of other vascular implants and grafts (11/14/22) Subjective Subjective had some twinges of chest pain last night. Objective Data Objective Data Vital Signs: Vital Signs Temp Pulse Resp BP Pulse Ox O2 Del Method 37.0 C 80 18 106/70 93 Room Air 11/16/22 04:20 11/16/22 07:12 11/16/22 07:12 11/16/22 04:20 11/16/22 04:20 11/16/22 04:20 Oxygen Delivery Method Room Air Weight: 66 kg Body Mass Index (BMI) 21.5 Intake & Output: Intake and Output for Last 24 Hours 11/14/22 11/15/22 11/16/22 23:59 23:59 23:59 Intake Total 1635.53 / 1635.53 183.53 / 183.53 864.18 / 864.18 Output Total 700 / 1400 1100 / 1100 600 / 600 Balance 935.53 / 235.53 -916.47 / -916.47 264.18 / 264.18 Lab / Micro Data 11/15/22 06:40 11/16/22 03:00 Labs: Laboratory Results - last 24 hr 11/15/22 14:30: APTT 39.0 H 11/15/22 17:35: Urine Color Yellow, Urine Clarity Clear, Urine pH 6.5, Ur Specific [place] 1.010, Urine Protein Negative, Urine Glucose (UA) Normal, UrineKetones Negative, Urine Occult Blood Negative, Urine Nitrite Negative, Urine Bilirubin Negative, Urine Urobilinogen Normal, Ur Leukocyte Esterase Negative, Urine RBC 0 SEEN, Urine WBC 0 SEEN, Ur Squamous Epith Cells 0 SEEN, Urine Bacteria 0 SEEN, Urine Mucus 0 SEEN 11/15/22 21:30: APTT 66.1 H 11/16/22 03:00: APTT 77.4 H, Sodium 140, Potassium 3.4 L, Chloride 112 H, CarbonDioxide 23.0, Anion Gap 5, BUN 20 H, Creatinine 1.47 H, Estim Creat Clear Calc 38.37, Est GFR (MDRD) Af Amer 60, Est GFR (MDRD) Non-Af 49 L, BUN/Creatinine Ratio 13.6, Glucose 110 H, Calcium 9.5, Phosphorus 3.1, Albumin 3.2 Physical Exam Const alert and no apparent distress HEENT head/scalp atraumatic and moist oral mucous membranes Resp normal respiratory effort, no retractions, no use of accessory muscles and clearto auscultation bilaterally Cardio regular rate, regular rhythm, S1 normal heart sound and S2 normal heart sound GI normal to inspection, nondistended, normoactive bowel sounds, soft to palpation and non-tender Assessment & Plan Assessment/Plan (1) NSTEMI, initial episode of care: PLAN: Troponins 456 Echo pending Cards consult TMT: * No ASA given allergy (SOB), no statin given h/o cramps * clopidogrel continued. * DW Dr. Yin, due to illness, he would be unable to perform LHC today, but likely tomorrow. Also, he recommended dc heparin gtt. DW patient. Recommended he stay to have LHC 11/17 rather than go home and have it as outpt. He expressed understanding,but will be going home (he cares for his demented ) and follow up as outpt. He understands the risks and advised to return if feeling worse. (2) Hypokalemia: PLAN: replaced today monitor PLAN: Plan Chronic conditions: * Chronic Kidney Disease Stage III, unclear subtype: Admission BUN/Cr 23/1.78, baseline renal function primarily 1.4-1.8, repeat BMP in AM. * CAD: Status post prior PCI, will continue aspirin, not on beta-kimberley therapy as on verapamil, not on statin secondary to allergy, not on JU inhibitor/ARB per most current list but will clarify. * History AAA: Status post prior endovascular repair and graft-stent, continue plavix, hypertensive regimen, not on statin therapy secondary to intolerance. * Hypertension: Continue home regimen including verapamil, PRN hydralazine. * Hyperlipidemia: Noted statin allergy, FLP in AM. 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 * Former tobacco use: Encourage continued tobacco cessation. * Chronic COPD/asthma with chronic hypoxic respiratory failure: We will continue patient home 3 L nasal cannula supplementation nightly, will maintain on ATC budesonide therapy, PRN albuterol, HOB, IS parameters. * History of bowel obstruction: Status post partial colectomy, resolved. * BPH: We will continue patient home Flomax home regimen. * Anxiety and depression: We will continue patient home mirtazapine regimen, clarifying dose. DVT prophylaxis: Continue heparin drip. CODE status: DNRCCA no intubation 11/16/22 1055 <Electronically signed by Heri Ewing DO> Cosigner Signature (if applicable): CC: ~ Signed [facility] Work Phone: 1(814) 833-258307-16-2023 Progress note Author Good olmedo [facility] November 15, 2022 7:56pm Note Date/Time November 15, 2022 7:[address] [facility] Medical Records Department [address] [place] [address] Progress Note - Nephrology 11/15/221938 MR#: [id number] Acct: [id number] Name: BETTE CLEMENTS Rep #:[id number] : 1945 77 From: Good barfield MD PCP: Dr. Spenser Sanchez MD Status:A DM IN Location: [place] [address] Subjective Subjective Following for CKD. The patient denies current chest pain but did have chest pain overnight. Chest pain resolved with nitroglycerin. He denies current shortness of breath. He is scheduled for cardiac catheterization tomorrow. Objective Data Objective Data Vital Signs: Vital Signs Temp Pulse Resp BP Pulse Ox O2 Del Method 97.8 F 80 16 137/79 H 94 Room Air 11/15/22 14:43 11/15/22 14:43 11/15/22 14:43 11/15/22 14:43 11/15/22 14:43 11/15/22 14:43 Oxygen Delivery Method Room Air Weight: 65.5 kg Body Mass Index (BMI) 21.4 Intake & Output: Intake and Output for Last 24 Hours 11/13/22 11/14/22 11/15/22 23:59 23:59 23:59 Intake Total 1635.53 / 1635.53 183.53 / 183.53 Output Total 700 / 1400 1100 / 1100 Balance 935.53 / 235.53 -916.47 / -916.47 Lab / Micro Data 11/15/22 06:40 11/15/22 06:40 Labs: Laboratory Results - last 24 hr 11/15/22 00:29: APTT 49.4 H 11/15/22 06:40: WBC 7.4, RBC 4.51 L, Hgb 13.1, Hct 40.4, MCV 89.6, MCH 29.0, MCHC 32.4, RDW Std Deviation 50.4 H, RDW Coeff of Kylee 15.3 H, Plt Count 280, MPV10.1, Immature Gran % (Auto) 0.400, Neut % (Auto) 69.1, Lymph % (Auto) 13.7 L, Clare % (Auto) 6.3, Eos % (Auto) 9.4 H, Baso % (Auto) 1.1 H, Absolute Neuts (auto) 5.1, Absolute Lymphs (auto) 1.02, Nucleated RBC % 0, APTT 62.9 H, Sodium 140, Potassium 3.5, Chloride 111 H, Carbon Dioxide 24.0, Anion Gap 5, BUN 18, Creatinine 1.47 H, Estim Creat Clear Calc 40.07, Est GFR (MDRD) Af Amer 60, Est GFR (MDRD) Non-Af 49 L, BUN/Creatinine Ratio 12.2, Glucose 104, Calcium 9.3, Total Bilirubin 0.70, AST 23, ALT 17, Alkaline Phosphatase 74, Total Protein 6.2L, Albumin 3.2, Globulin 3.0, Albumin/Globulin Ratio 1.1, Triglycerides 107, Cholesterol 196, LDL Cholesterol 113, VLDL Cholesterol 21, HDL Cholesterol 62 11/15/22 14:30: APTT 39.0 H 11/15/22 17:35: Urine Color Yellow, Urine Clarity Clear, Urine pH 6.5, Ur Specific [place] 1.010, Urine Protein Negative, Urine Glucose (UA) Normal, UrineKetones Negative, Urine Occult Blood Negative, Urine Nitrite Negative, Urine Bilirubin Negative, Urine Urobilinogen Normal, Ur Leukocyte Esterase Negative, Urine RBC 0 SEEN, Urine WBC 0 SEEN, Ur Squamous Epith Cells 0 SEEN, Urine Bacteria 0 SEEN, Urine Mucus 0 SEEN Physical Exam Narrative General: Alert and oriented x3, NAD. HEENT: Normocephalic, atraumatic. Mucous membrane moist without erythema. PERRLA, EOMI. Hearing is intact. Neck: Supple, no JVD. Cardiovascular: Normal S1, S2. No rubs, murmurs, or gallops. Respiratory: Mild expiratory wheeze diffusely. There is no crackles. Abdomen: Normal bowel sounds, soft, nontender, no guarding or rebound, no organomegaly. Extremities: No clubbing, cyanosis, or edema. Assessment & Plan Assessment/Plan (1) Chronic kidney disease, stage 3b: (2) Essential (primary) hypertension: (3) Acute non-ST elevation myocardial infarction (NSTEMI): PLAN: Plan Impression/Plan: The patient is a 77-year-old man with past history of hypertension, prostate cancer, PAD status post endovascular repair of abdominal attic aneurysm, COPD, CAD status post PCI, and CKD. The patient was admitted to the hospital on 11/14/2022 with NSTEMI. Nephrology is following for chronic kidney disease. Chronic kidney disease stage G3b. Baseline serum creatinine has been around 1.5 to 1.8 mg/dL. He presented to the hospital on 11/14/2022 with serum creatinine 1.78 mg/dL whichis at baseline. The patient tells me that his renal function is being monitored by PCP. He has not seen apron cleaner in the past. Renal function has been stable for over 5 years per his report. The patient did undergo endovascular repair of AAA approximately 2 years ago andreceived IV contrast without problems. Renal function is stable today with serum creatinine of 1.47 mg/dL which is close to usual baseline. Therefore, from nephrology standpoint, he should be safe to proceed with cardiaccatheterization. Risk of contrast associated nephropathy should be acceptable. Since the patient is not volume overloaded, I will start IV NS at 100 mL/h aftermidnight to minimize risk of contrast nephropathy. We should continue IV fluid for 2 to 3 hours after contrast exposure. I would recommend limiting contrast load as much as we can. If intervention is needed, I would recommend staging the procedure to minimize contrast load per procedure. Hypertension. BP is reasonably controlled. Continue current dose of verapamil. NSTEMI. The patient is tentatively scheduled for cardiac catheterization tomorrow on 11/16/2022. Management of CAD is as per hospital medicine and cardiology services. 11/15/221955 <Electronically signed by Good Morse MD> Cosigner Signature (if applicable): CC: ~ Signed [facility] Work Phone: [phone] 883-131207-16-2023 Progress note Author Heri Ewing [facility] November 15, 2022 12:33pm Note Date/Time November 15, 2022 8:26 am [facility] Medical Records Department [address] [place] [id number] Progress Note - Hospitalist 11/15/22823 MR#: [id number] Acct: [id number] Name: BETTE CLEMENTS Rep #:[id number] : 1945 77 From: Heri Ewing DO PCP: Dr. Spenser Sanchez MD Status:A DM IN Location: [place] [address] Reason for Visit Reason for Visit: Diagnoses Malignant neoplasm of prostate (11/14/22) Hyperlipidemia, unspecified (11/14/22) Essential (primary) hypertension (11/14/22) Non-ST elevation (NSTEMI) myocardial infarction (11/14/22) Atherosclerotic heart disease of [place] coronary artery without angina pectoris (11/14/22) Old myocardial infarction (11/14/22) Chronic obstructive pulmonary disease, unspecified (11/14/22) Chronic kidney disease, stage 3b (11/14/22) Presence of coronary angioplasty implant and graft (11/14/22) Presence of other vascular implants and grafts (11/14/22) Subjective Subjective Had CP last night. Resolved after 2 NTG. No current CP. Objective Data Objective Data Vital Signs: Vital Signs Temp Pulse Resp BP Pulse Ox O2 Del Method 37.2 C 93 18 110/72 93 Room Air 11/15/22 03:00 11/15/22 03:00 11/15/22 03:00 11/15/22 03:00 11/15/22 03:00 11/15/22 03:00 Oxygen Delivery Method Room Air Weight: 68.5 kg Body Mass Index (BMI) 22.4 Intake & Output: Intake and Output for Last 24 Hours 11/13/22 11/14/22 11/15/22 23:59 23:59 23:59 Intake Total 1635.53 / 1635.53 50.93 / 50.93 Output Total 700 / 1400 1100 / 1100 Balance 935.53 / 235.53 -1049.07 / -1049.07 Lab / Micro Data 11/15/22 06:40 11/15/22 06:40 Labs: Laboratory Results - last 24 hr 11/14/22 08:06: Troponin I High Sens 1687 H* 11/14/22 10:34: APTT 68.4 H, Troponin I High Sens 2134 H* 11/14/22 16:01: Troponin I High Sens 1880 H* 11/14/22 17:55: APTT 45.4 H 11/15/22 00:29: APTT 49.4 H 11/15/22 06:40: WBC 7.4, RBC 4.51 L, Hgb 13.1, Hct 40.4, MCV 89.6, MCH 29.0, MCHC 32.4, RDW Std Deviation 50.4 H, RDW Coeff of Kylee 15.3 H, Plt Count 280, MPV10.1, Immature Gran % (Auto) 0.400, Neut % (Auto) 69.1, Lymph % (Auto) 13.7 L, Clare % (Auto) 6.3, Eos % (Auto) 9.4 H, Baso % (Auto) 1.1 H, Absolute Neuts (auto) 5.1, Absolute Lymphs (auto) 1.02, Nucleated RBC % 0, APTT 62.9 H, Sodium 140, Potassium 3.5, Chloride 111 H, Carbon Dioxide 24.0, Anion Gap 5, BUN 18, Creatinine 1.47 H, Estim Creat Clear Calc 40.07, Est GFR (MDRD) Af Amer 60, Est GFR (MDRD) Non-Af 49 L, BUN/Creatinine Ratio 12.2, Glucose 104, Calcium 9.3, Total Bilirubin 0.70, AST 23, ALT 17, Alkaline Phosphatase 74, Total Protein 6.2L, Albumin 3.2, Globulin 3.0, Albumin/Globulin Ratio 1.1, Triglycerides 107, Cholesterol 196, LDL Cholesterol 113, VLDL Cholesterol 21, HDL Cholesterol 62 Radiography Diagnostic Testing: Radiology Impression Echocardiogram 11/14/22 07:13 Interpretation Summary Diastolic function is indeterminate. The estimated ejection fraction is 45 %. Mild to moderate segmental systolic dysfunction (see wall motion). Mild (1+) tricuspid valve insufficiency. Right ventricular systolic pressure estimated to be 37 mmHg. Trivial aortic valve insufficiency. Ordering Physician: Delma Gonsalves Referring Physician: Spenser Sanchez Performed By: Laila Turner, DAISY Physical Exam Const alert and no apparent distress HEENT head/scalp atraumatic and moist oral mucous membranes Resp normal respiratory effort, no retractions, no use of accessory muscles and clearto auscultation bilaterally Cardio regular rate, regular rhythm, S1 normal heart sound and S2 normal heart sound GI normal to inspection, nondistended, normoactive bowel sounds, soft to palpation,non-tender and non-distended Extremity normal to inspection Assessment & Plan Assessment/Plan (1) NSTEMI, initial episode of care: PLAN: Troponins 456 Echo pending Cards consult TMT: * No ASA given allergy (SOB), no statin given h/o cramps * clopidogrel * heparin gtt * tentative plan for [facility] on 11/16 PLAN: Plan Chronic conditions: * Chronic Kidney Disease Stage III, unclear subtype: Admission BUN/Cr 23/1.78, baseline renal function primarily 1.4-1.8, repeat BMP in AM. * CAD: Status post prior PCI, will continue aspirin, not on beta-kimberley therapy as on verapamil, not on statin secondary to allergy, not on JU inhibitor/ARB per most current list but will clarify. * History AAA: Status post prior endovascular repair and graft-stent, continue plavix, hypertensive regimen, not on statin therapy secondary to intolerance. * Hypertension: Continue home regimen including verapamil, PRN hydralazine. * Hyperlipidemia: Noted statin allergy, FLP in AM. 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 * Former tobacco use: Encourage continued tobacco cessation. * Chronic COPD/asthma with chronic hypoxic respiratory failure: We will continue patient home 3 L nasal cannula supplementation nightly, will maintain on ATC budesonide therapy, PRN albuterol, HOB, IS parameters. * History of bowel obstruction: Status post partial colectomy, resolved. * BPH: We will continue patient home Flomax home regimen. * Anxiety and depression: We will continue patient home mirtazapine regimen, clarifying dose. DVT prophylaxis: Continue heparin drip. CODE status: DNRCCA no intubation Charges/Coding Visit Charges Inpatient E&M: 06976 Subs Hosp L2 11/15/22 1233 <Electronically signed by Heri Ewing DO> Cosigner Signature (if applicable): CC: ~ Signed [facility] Work Phone: 1(603) 621-392107-16-2023 Progress note Author Bethel Gallegos [facility] November 15, 2022 12:20pm Note Date/Time November 15, 2022 11:[address] [facility] Medical Records Department [address] [place] [address] Progress Note - Cardiology 11/15/22 1131 MR#: [id number] Acct: [id number] Name: BETTE CLEMENTS Rep #:[id number] : 1945 77 From: Bethel aGllegos MD PCP: Dr. Spenser Sanchez MD Status:A DM IN Location: [place] [address] Subjective Subjective Symptoms reported today No events noted from last night. Appreciate apron cleaner consult noted Objective Data Vital Signs: Vital Signs Temp Pulse Resp BP Pulse Ox O2 Del Method 97.6 F L 79 12 126/82 H 93 Room Air 11/15/22 09:10 11/15/22 09:10 11/15/22 09:10 11/15/22 09:10 11/15/22 09:10 11/15/22 09:10 Oxygen Delivery Method Room Air Weight: 144 lb 6.444 oz Body Mass Index (BMI) 21.4 Intake & Output: Intake and Output for Last 24 Hours 11/13/22 11/14/2223 23:59 23:59 23:59 Intake Total 1635.53 / 1635.53 50.93 / 50.93 Output Total 700 / 1400 1100 / 1100 Balance 935.53 / 235.53 -1049.07 / -1049.07 Lab / Micro Data 11/15/22 06:40 11/15/22 06:40 Labs: Laboratory Results - last 24 hr 11/14/22 16:01: Troponin I High Sens 1880 H* 11/14/22 17:55: APTT 45.4 H 11/15/22 00:29: APTT 49.4 H 11/15/22 06:40: WBC 7.4, RBC 4.51 L, Hgb 13.1, Hct 40.4, MCV 89.6, MCH 29.0, MCHC 32.4, RDW Std Deviation 50.4 H, RDW Coeff of Kylee 15.3 H, Plt Count 280, MPV10.1, Immature Gran % (Auto) 0.400, Neut % (Auto) 69.1, Lymph % (Auto) 13.7 L, Clare % (Auto) 6.3, Eos % (Auto) 9.4 H, Baso % (Auto) 1.1 H, Absolute Neuts (auto) 5.1, Absolute Lymphs (auto) 1.02, Nucleated RBC % 0, APTT 62.9 H, Sodium 140, Potassium 3.5, Chloride 111 H, Carbon Dioxide 24.0, Anion Gap 5, BUN 18, Creatinine 1.47 H, Estim Creat Clear Calc 40.07, Est GFR (MDRD) Af Amer 60, Est GFR (MDRD) Non-Af 49 L, BUN/Creatinine Ratio 12.2, Glucose 104, Calcium 9.3, Total Bilirubin 0.70, AST 23, ALT 17, Alkaline Phosphatase 74, Total Protein 6.2L, Albumin 3.2, Globulin 3.0, Albumin/Globulin Ratio 1.1, Triglycerides 107, Cholesterol 196, LDL Cholesterol 113, VLDL Cholesterol 21, HDL Cholesterol 62 Cardiology Labs/Tests 11/14/22 17:55: APTT 45.4 H 11/15/22 00:29: APTT 49.4 H 11/15/22 06:40: WBC 7.4, RBC 4.51 L, Hgb 13.1, Hct 40.4, MCV 89.6, MCH 29.0, MCHC 32.4, Plt Count 280, MPV 10.1, Immature Gran % (Auto) 0.400, Neut % (Auto) 69.1, Lymph % (Auto) 13.7 L, Clare % (Auto) 6.3, Eos % (Auto) 9.4 H, Baso % (Auto) 1.1 H, Absolute Neuts (auto) 5.1, Nucleated RBC % 0, APTT 62.9 H, Sodium 140, Potassium 3.5, Chloride 111 H, Carbon Dioxide 24.0, Anion Gap 5, BUN 18, Creatinine 1.47 H, Est GFR (MDRD) Af Amer 60, Est GFR (MDRD) Non-Af 49 L, BUN/Creatinine Ratio 12.2, Glucose 104, Calcium 9.3, Total Bilirubin 0.70, Triglycerides 107, Cholesterol 196, LDL Cholesterol 113, VLDL Cholesterol 21, HDL Cholesterol 62 Rhythm: EKG: ECHO: Stress Test: Cardiac Cath: PCI: CT Surgery: Holter monitor: EPS: PPM: CXR: Chest CT Scan: Radiography Diagnostic Testing: Radiology Impression Echocardiogram 11/14/22 07:13 Interpretation Summary Diastolic function is indeterminate. The estimated ejection fraction is 45 %. Mild to moderate segmental systolic dysfunction (see wall motion). Mild (1+) tricuspid valve insufficiency. Right ventricular systolic pressure estimated to be 37 mmHg. Trivial aortic valve insufficiency. Ordering Physician: Delma Gonsalves Referring Physician: Spenser Sanchez Performed By: Laila Turner RDCS Physical Exam Cardio Cardio Narrative: Cardiac exam S1-S2 regular Chest exam clear to auscultation bilateral No lower extremity edema noted Assessment & Plan Assessment/Plan (1) Atherosclerotic heart disease of [place] coronary artery without angina pectoris: (2) Old inferior wall myocardial infarction: (3) History of endovascular stent graft for abdominal aortic aneurysm (AAA): (4) Essential (primary) hypertension: (5) Hyperlipidemia: (6) 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 classification: (7) Acute non-ST elevation myocardial infarction (NSTEMI): PLAN: Plan 77-year-old patient with extensive cardiac history Peripheral vascular disease with endovascular AAA repair/stent Multiple coronary artery stent involving the RCA circumflex and LAD Presented with symptoms of chest pain With non-ST elevation MD, with significant elevation cardiac biomarkers high sensitive troponin Currently on medical therapy with heparin No further episode of chest pain noted Segmental wall motion abnormality with reduced EF around 40% Likely current blood will be in the LAD as he had a distal septal and apical hypokinesia in comparison to previous echocardiogram. Patient also had CKD, seen by apron cleaner on this admission Cardiac care plan recommendation We will plan for cardiac catheterization tomorrow if renal function is stable By his primary nursing unit clerk Dr. Steinberg With minimal contrast no left ventriculogram If significant coronary atherosclerosis identified Will stage for elective PCI. Minimize risk of contrast-induced nephropathy We will continue current medical treatment. Also will start on rehydration overnight Plan of cardiac catheterization discussed with the patient and nursing staff. 11/15/22 1220 <Electronically signed by Bethel Gallegos MD> Cosigner Signature (if applicable): CC: ~ Signed [facility] Work Phone: [phone] 128-394407-15-2023 Consult note Author Good Mensah tr [facility] November 14, 2022 7:31pm Note Date/Time November 14, 2022 6:[address] [facility] Medical Records Department [address] [place] [id number] Consultation - Nephrology 11/14/22 3420 MR#: [id number] Acct: [id number] Name: BETTE CLEMENTS Rep #:[id number] : 1945 77 From: Good barfield MD PCP: Dr. Spenser Sanchez MD Status:A DM IN Location: [facility] [id number] Assessment & Plan Assessment/Plan (1) Chronic kidney disease, stage 3b: (2) Essential (primary) hypertension: (3) Acute non-ST elevation myocardial infarction (NSTEMI): PLAN: Plan Impression/Plan: The patient is a 77-year-old man with past history of hypertension, prostate cancer, PAD, status post endovascular repair of abdominal attic aneurysm, COPD, CAD status post PCI, and CKD. The patient was admitted to the hospital on 11/14/2022 with NSTEMI. Nephrology is following for chronic kidney disease. Chronic kidney disease stage G3b. Baseline serum creatinine has been around 1.5 to 1.8 mg/dL. He presented to the hospital on 11/14/2022 with serum creatinine 1.78 mg/dL whichis close to prior baseline. The patient tells me that his renal function is being monitored by PCP. He has not seen apron cleaner in the past. Renal function has been stable for over 5 years per his report. The patient did undergo endovascular repair of AAA approximately 2 years ago andreceived IV contrast without problems. Recheck renal function again tomorrow. From my standpoint, if renal function remains stable at his usual baseline, the patient should be able to undergo cardiac catheterization without significant risk for contrast associated nephropathy. However, I would recommend limiting contrast load as much as we can. If intervention is needed, I would recommend staging the procedure to minimize contrast load per procedure. Hypertension. BP is reasonably controlled. Continue current dose of verapamil. NSTEMI. Management of CAD is as per hospital medicine and cardiology services. HPI Consult Data Date of Consult: 11/14/22 HPI Narrative Reason for Consultation: CKD. HPI Narrative: The patient is a 77-year-old man with past history of hypertension, prostate cancer, colon cancer, PAD status post endovascular repair of abdominal aortic aneurysm, COPD, CAD status post PCI, and CKD. The patient presented to the hospital on 11/14/2022 with midsternal chest pain which started 2 days prior to presentation. The patient has been diagnosed withNSTEMI. Nephrology is asked see the patient because of CKD in the setting of NSTEMI. The patient may be requiring cardiac catheterization and IV contrast exposure. Baseline serum creatinine has been around 1.4 to 1.8 mg/dL. Serum creatinine onadmission is 1.78 mg/dL. The patient denies current chest pain or shortness of breath at rest. He deniesnausea, vomiting or anorexia prior to admission. He does have loose bowel movement at baseline because of prior history of colectomy for colon cancer. Hedenies lower urinary tract symptoms, gross hematuria or dysuria. The patient denies using NSAIDs on a regular basis. Prior to admission, the patient was not on RAAS inhibitor or MRA. He was not onscheduled diuretic either. [facility] Medical History AAA (abdominal aortic aneurysm) Abdominal aortic aneurysm (AAA) greater than 5.5 cm in diameter in male Alcohol abuse Allergy to dog dander Anemia Arthritis Asthma Atherosclerotic heart disease of [place] coronary artery without angina pectoris Back pain BPH (benign prostatic hyperplasia) Bronchiectasis Cancer Complete small bowel obstruction COPD (chronic obstructive pulmonary disease) Coronary artery disease Easy bruising Elevated PSA Epistaxis Essential (primary) hypertension Excessive bleeding Former smoker History of colon cancer History of ST elevation myocardial infarction (STEMI) (05/27/07) Hyperlipidemia Hypoxia Insomnia Iron deficiency Kidney stones Left inguinal hernia Low back pain Myocardial infarct 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) On home oxygen therapy Partial bowel obstruction Personal history of other malignant neoplasm of rectum, rectosigmoid junction, and anus Prostate CA Short bowel syndrome Sinus bradycardia 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 classification Tachycardia Therapeutic drug monitoring Trigger finger Wears glasses Home Medications fluticasone propionate 50 mcg/actuation nasal spray,suspension 1 spray intranasal BID congestion 05/09/20 [History Last Taken 07/24/22] albuterol sulfate 90 mcg/actuation aerosol inhaler (Ventolin HFA) 2 puff inhalation Q4H PRN shortness of breath or wheezing #18 grams 07/02/21 [Rx Last Taken Unknown] formoterol fumarate 20 mcg/2 mL solution for nebulization (Perforomist) 2 ml inhalation Q12H copd #120 mL 12/25/21 [Rx Last Taken 07/23/22] clopidogrel 75 mg tablet 75 mg PO QHS blood thinner #90 tabs 01/08/22 [Rx Last Taken 07/24/22] budesonide 0.5 mg/2 mL suspension for nebulization 0.5 mg (2 mL) inhalation S21Liwrv #180 mL 03/25/22 [Rx Last Taken 07/23/22] verapamil 240 mg tablet,extended release 240 mg PO QHS heart #90 tabs 04/28/22 [Rx Last Taken 07/24/22] multivitamin 2 tab PO DAILY 04/30/22 [History Last Taken 07/24/22] mirtazapine 15 mg tablet 15 mg PO QHS #90 tabs 08/17/22 [Rx Last Taken Unknown] mirtazapine 7.5 mg tablet 7.5 mg PO QHS #90 tabs 08/17/22 [Rx Last Taken Unknown] tamsulosin 0.4 mg capsule 0.4 mg PO QHS prostate #90 caps 10/13/22 [Rx Last Taken Unknown] bicalutamide 50 mg tablet 50 mg PO DAILY cancer 11/14/22 [History Last Taken 11/13/22] calcium 325 mg-vit D3 12.5 mcg-zinc 2.75 te-turmwn-ljvgykamb tablet (Citracal-P6Ytsfhgs Plus) 2 tab PO BID bone deficiency 11/14/22 [History Last Taken Unknown] Allergy/AdvReac Type Severity Reaction Status Date / Time aspirin Allergy Shortness Verified 11/14/22 02:11 of breath adhesive AdvReac Rash Verified 11/14/22 02:11 amoxicillin trihydrate AdvReac Other Verified 11/14/22 02:11 [From Augmentin] atorvastatin calcium AdvReac leg cramps Verified 11/14/22 02:11 [From Lipitor] isopropyl alcohol AdvReac Rash Verified 11/14/22 02:11 metoprolol succinate AdvReac Rash Verified 11/14/22 02:11 [From Toprol XL] naproxen [From Naprosyn] AdvReac Shortness Verified 11/14/22 02:11 of breath paroxetine HCl [From Paxil] AdvReac Unknown Verified 11/14/22 02:11 potassium clavulanate AdvReac tingling Verified 11/14/22 02:11 [From Augmentin] all over propoxyphene HCl AdvReac Unknown Verified 11/14/22 02:11 [From Darvon] sertraline HCl [From Zoloft] AdvReac Unknown Verified 11/14/22 02:11 simvastatin [From Zocor] AdvReac Unknown Verified 11/14/22 02:11 tiotropium bromide AdvReac Other Verified 11/14/22 02:11 [From Spiriva with HandiHaler] Family History Father Heart disease Hypertension High cholesterol CVA (cerebral vascular accident) Mother Dementia Surgical History H/O hernia repair History of coronary artery stent placement (06/07/20) History of endovascular stent graft for abdominal aortic aneurysm (AAA) (06/25/20) History of esophagogastroduodenoscopy (EGD) History of left heart catheterization (05/24/20) History of left inguinal hernia repair (06/2021) history of right eye surgery History of right inguinal hernia repair History of tonsillectomy History of tonsillectomy and adenoidectomy Hx of appendectomy Hx of bilateral cataract extraction Hx of colonoscopy Hx of sinus surgery Hx of thumb surgery Hx of umbilical hernia repair Status post laparoscopic colectomy Social History Smoking Status: Former smoker pack-years: 67 second hand exposure: No alcohol intake: current alcohol intake frequency: other Alcohol type: beer details: Previous nightly drinker. Stopped 2021 substance use type: does not use caffeine: Yes Type: coffee Number of servings: 4 what type of physical activity do you participate in: other details: pulmonary rehab frequency: 3-4 times per week ROS ROS Narrative 02/09 ROS was done, they are otherwise noncontributory to what is already in theHPI. Physical Exam Narrative General: Alert and oriented x3, NAD. HEENT: Normocephalic, atraumatic. Mucous membrane moist without erythema. PERRLA, EOMI. Hearing is intact. Neck: Supple, no JVD. Trachea is midline. No thyromegaly or lymphadenopathy. Cardiovascular: Normal S1, S2. No rubs, murmurs, or gallops. Respiratory: Mild expiratory wheeze diffusely. There is no crackles. Abdomen: Normal bowel sounds, soft, nontender, no guarding or rebound, no organomegaly. Extremities: No clubbing, cyanosis, or edema. Musculoskeletal: Full passive range of motion, no joint swelling. Psychiatric: Normal mood and affect. Skin: Warm and dry, no rash. Neurologic: Cranial nerve II to XII are grossly intact. No focal neurologic deficits. Lab / Micro Data 11/14/22 02:10 11/14/22 02:10 Labs: Laboratory Results - last 24 hr 11/14/22 02:10: WBC 9.1, RBC 4.77, Hgb 14.0, Hct 42.6, MCV 89.3, MCH 29.4, MCHC 32.9, RDW Std Deviation 50.1 H, RDW Coeff of Kylee 15.3 H, Plt Count 336, MPV 10.2, Immature Gran % (Auto) 0.300, Neut % (Auto) 63.8, Lymph % (Auto) 19.2, Clare % (Auto) 7.4, Eos % (Auto) 8.5 H, Baso % (Auto) 0.8, Absolute Neuts (auto) 5.8, Absolute Lymphs (auto) 1.74, Nucleated RBC % 0, PT 13.1 11/14/22 02:10: PT Cancelled, INR 1.0 11/14/22 02:10: INR Cancelled, APTT 31.6, Sodium 142, Potassium 3.5, Chloride 106, Carbon Dioxide 29.0, Anion Gap 7, BUN 23 H, Creatinine 1.78 H, Estim Creat Clear Calc 31.98, Est GFR (MDRD) Af Amer 48 L, Est GFR (MDRD) Non-Af 39 L, BUN/Creatinine Ratio 12.9, Glucose 107 H, Calcium 10.0, Troponin I High Sens 47 11/14/22 04:10: Magnesium 2.2, Troponin I High Sens 456 H* 11/14/22 08:06: Troponin I High Sens 1687 H* 11/14/22 10:34: APTT 68.4 H, Troponin I High Sens 2134 H* 11/14/22 16:01: Troponin I High Sens 1880 H* Radiology Impression Chest X-Ray 11/14/22 02:10 IMPRESSION: No evidence of acute cardiopulmonary disease. Electronically Signed: Brannon Degroot DO at 2:44 EDT , Echocardiogram 11/14/22 07:13 Interpretation Summary Diastolic function is indeterminate. The estimated ejection fraction is 45 %. Mild to moderate segmental systolic dysfunction (see wall motion). Mild (1+) tricuspid valve insufficiency. Right ventricular systolic pressure estimated to be 37 mmHg. Trivial aortic valve insufficiency. Ordering Physician: Delma Gonsalves Referring Physician: Spenser Sanchez Performed By: Laila Turner RDCS 11/14/221930 <Electronically signed by Good Morse MD> Cosigner Signature (if applicable): CC: Dr. Delma Gonsalves MD; Dr. Spenser Sanchez MD; Dr. Bethel Gallegos MD; Dr.Natthavat Mini MD~ Signed [facility] Work Phone: [phone] 280-844807-15-2023 Consult note Author [facility] November 14, 2022 12:18pm Note Date/Time November 14, 2022 12:[address] [facility] Medical Records Department [address] [place] [id number] Consultation - Cardiology 11/14/22 1158 MR#: [id number] Acct: [id number] Name: BETTE CLEMENTS Rep #:[id number] : 1945 77 From: Bethel Gallegos MD PCP: Dr. Spenser Sanchez MD Status:A DM IN [facility] Assessment & Plan Assessment/Plan (1) Atherosclerotic heart disease of [place] coronary artery without angina pectoris: (2) History of coronary artery stent placement: (3) Old inferior wall myocardial infarction: (4) History of endovascular stent graft for abdominal aortic aneurysm (AAA): (5) Essential (primary) hypertension: (6) Hyperlipidemia: (7) 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 classification: (8) Acute non-ST elevation myocardial infarction (NSTEMI): (9) Prostate CA: PLAN: Plan 77-year-old patient Presented with symptoms of chest pain which have been for the last 2 days got worse yesterday and came to the ER at [facility] Early in the morning with symptoms of chest pain And had an EKG as well as evaluation by cardiac marker Which subsequently showed significant elevation of high sensitive troponin I His symptoms of chest pain resolved he does not have any active chest pain This patient has extensive cardiac history he had history of inferior myocardialinfarction in 2007 and had a PCI and stenting using drug-eluting stent to the RCA As well he had a PCI and stent to the LAD and circumflex artery. Last cardiac catheterization in May 2020 which showed severe triple-vessel disease and was a high risk patient and decision was made to send him to a tertiary center to evaluate for high risk PCI versus CABG. And he ended up with PCI and stent ofthe left circumflex artery using drug-eluting stent. As well as a PCI and stentof the mid LAD. On the last angiogram the RCA is totally occluded and recanalized proximal RCA with micro channels. Other medical problem include history of abdominal aortic aneurysm he had an endovascular stent of the AAA. Also patient mention history of allergy to aspirin he was only taking Plavix. No I reviewed the last cardiac catheterization which was in May 24, 2020. And at that time his EF was preserved ejection fraction of 60%. Cardiac care plan and recommendations; This patient with the multiple medical comorbidities. Patient will need further evaluation with cardiac catheterization She has elevated serum creatinine up to 1.78 and I requested nephrology consultation Also will start on IV hydration Bedside echocardiogram showed reduced LV systolic function Ejection fraction in the range of around 40% with distal septal and apical hypokinesia I also discussed the allergy to aspirin Which is a high risk for acute in-stent thrombosis. Patient will need further evaluation with cardiac catheterization due to significant elevated troponins and presentation with chest pain which resolved. Very high risk patient with multiple coronary arteries involving the RCA circumflex LAD Likely the culprit in this case based on the EKG and the echocardiogram is in- stent thrombosis of LAD and patient will be evaluated further by cardiac catheterization by the Dr. Steinberg I requested the apron cleaner consultation the patient IV hydration with the planof repeating the BMP and cardiac markers. Explained the need of cardiac catheterization in detail to the patient and family and nursing staff. HPI Consult Data Date of Consult: 11/14/22 HPI Narrative Reason for Consultation: CAD/chest pain/non-STEMI HPI Narrative: BETTE CLEMENTS, is a 77 M who presents [facility] Medical History AAA (abdominal aortic aneurysm) Abdominal aortic aneurysm (AAA) greater than 5.5 cm in diameter in male Alcohol abuse Allergy to dog dander Anemia Arthritis Asthma Atherosclerotic heart disease of [place] coronary artery without angina pectoris Back pain BPH (benign prostatic hyperplasia) Bronchiectasis Cancer Complete small bowel obstruction COPD (chronic obstructive pulmonary disease) Coronary artery disease Easy bruising Elevated PSA Epistaxis Essential (primary) hypertension Excessive bleeding Former smoker History of colon cancer History of ST elevation myocardial infarction (STEMI) (05/27/07) Hyperlipidemia Hypoxia Insomnia Iron deficiency Kidney stones Left inguinal hernia Low back pain Myocardial infarct 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) On home oxygen therapy Partial bowel obstruction Personal history of other malignant neoplasm of rectum, rectosigmoid junction, and anus Prostate CA Short bowel syndrome Sinus bradycardia 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 classification Tachycardia Therapeutic drug monitoring Trigger finger Wears glasses Home Medications fluticasone propionate 50 mcg/actuation nasal spray,suspension 1 spray intranasal BID congestion 05/09/20 [History Last Taken 07/24/22] albuterol sulfate 90 mcg/actuation aerosol inhaler (Ventolin HFA) 2 puff inhalation Q4H PRN shortness of breath or wheezing #18 grams 07/02/21 [Rx Last Taken Unknown] formoterol fumarate 20 mcg/2 mL solution for nebulization (Perforomist) 2 ml inhalation Q12H copd #120 mL 12/25/21 [Rx Last Taken 07/23/22] clopidogrel 75 mg tablet 75 mg PO QHS blood thinner #90 tabs 01/08/22 [Rx Last Taken 07/24/22] budesonide 0.5 mg/2 mL suspension for nebulization 0.5 mg (2 mL) inhalation [id number] #180 mL 03/25/22 [Rx Last Taken 07/23/22] verapamil 240 mg tablet,extended release 240 mg PO QHS heart #90 tabs 04/28/22 [Rx Last Taken 07/24/22] multivitamin 2 tab PO DAILY 04/30/22 [History Last Taken 07/24/22] mirtazapine 15 mg tablet 15 mg PO QHS #90 tabs 08/17/22 [Rx Last Taken Unknown] mirtazapine 7.5 mg tablet 7.5 mg PO QHS #90 tabs 08/17/22 [Rx Last Taken Unknown] tamsulosin 0.4 mg capsule 0.4 mg PO QHS prostate #90 caps 10/13/22 [Rx Last Taken Unknown] bicalutamide 50 mg tablet 50 mg PO DAILY cancer 11/14/22 [History Last Taken 11/13/22] calcium 325 mg-vit D3 12.5 mcg-zinc 2.75 [id number] tablet (Citracal-[id number] Plus) 2 tab PO BID bone deficiency 11/14/22 [History Last Taken Unknown] Allergy/AdvReac Type Severity Reaction Status Date / Time aspirin Allergy Shortness Verified 11/14/22 02:11 of breath adhesive AdvReac Rash Verified 11/14/22 02:11 amoxicillin trihydrate AdvReac Other Verified 11/14/22 02:11 [From Augmentin] atorvastatin calcium AdvReac leg cramps Verified 11/14/22 02:11 [From Lipitor] isopropyl alcohol AdvReac Rash Verified 11/14/22 02:11 metoprolol succinate AdvReac Rash Verified 11/14/22 02:11 [From Toprol XL] naproxen [From Naprosyn] AdvReac Shortness Verified 11/14/22 02:11 of breath paroxetine HCl [From Paxil] AdvReac Unknown Verified 11/14/22 02:11 potassium clavulanate AdvReac tingling Verified 11/14/22 02:11 [From Augmentin] all over propoxyphene HCl AdvReac Unknown Verified 11/14/22 02:11 [From Darvon] sertraline HCl [From Zoloft] AdvReac Unknown Verified 11/14/22 02:11 simvastatin [From Zocor] AdvReac Unknown Verified 11/14/22 02:11 tiotropium bromide AdvReac Other Verified 11/14/22 02:11 [From Spiriva with HandiHaler] Family History Father Heart disease Hypertension High cholesterol CVA (cerebral vascular accident) Mother Dementia Surgical History H/O hernia repair History of coronary artery stent placement (06/07/20) History of endovascular stent graft for abdominal aortic aneurysm (AAA) (06/25/20) History of esophagogastroduodenoscopy (EGD) History of left heart catheterization (05/24/20) History of left inguinal hernia repair (06/2021) history of right eye surgery History of right inguinal hernia repair History of tonsillectomy History of tonsillectomy and adenoidectomy Hx of appendectomy Hx of bilateral cataract extraction Hx of colonoscopy Hx of sinus surgery Hx of thumb surgery Hx of umbilical hernia repair Status post laparoscopic colectomy Social History Smoking Status: Former smoker pack-years: 67 second hand exposure: No alcohol intake: current alcohol intake frequency: other Alcohol type: beer details: Previous nightly drinker. Stopped 2021 substance use type: does not use caffeine: Yes Type: coffee Number of servings: 4 what type of physical activity do you participate in: other details: pulmonary rehab frequency: 3-4 times per week ROS ROS Narrative 14 point review of system is unremarkable Apart from the current presentation with symptoms of chest pain With elevated cardiac biomarker, chest pain resolved on medical therapy Physical Exam Cardio Cardio Narrative: Patient seen and evaluated at bedside Along with the nursing staff Family at bedside He denied symptoms of chest pain/chest pain resolved campus monitor normal sinus rhythm Cardiac exam S1-S2 is regular Chest exam clear to auscultation bilateral Examination lower extremity no lower extremity edema., Pedal pulses palpable. Risk Stratification Risk Stratification Applicable: Yes Age >/= 65: Yes >/= 3 CAD Risk Factors (HTN, HLD, DM, family hx of CAD, or current smoker): Yes Aspirin Use in the Past 7 Days: No Severe Angina (>/= episodes in 24 hours): Yes EKG ST Changes >/= 0.5mm: Yes Positive Cardiac Marker: Yes ALYSIA Risk Stratification Score: 5 ALYSIA % Risk: 25% Risk Objective Data Vital Signs: Vital Signs Temp Pulse Resp BP Pulse Ox O2 Del Method 98.3 F 75 16 150/81 H 96 Room Air 11/14/22 06:29 11/14/22 06:29 11/14/22 06:29 11/14/22 06:29 11/14/22 11:05 11/14/22 11:05 Oxygen Delivery Method Room Air Weight: 151 lb 0.266 oz Body Mass Index (BMI) 22.4 Intake & Output: Intake and Output for Last 24 Hours 11/12/22 11/13/22 11/14/22 23:59 23:59 23:59 Intake Total 500 / 500 Balance 500 / 500 Lab / Micro Data 11/14/22 02:10 11/14/22 02:10 Labs: Laboratory Results - last 24 hr 11/14/22 02:10: WBC 9.1, RBC 4.77, Hgb 14.0, Hct 42.6, MCV 89.3, MCH 29.4, MCHC 32.9, RDW Std Deviation 50.1 H, RDW Coeff of Kylee 15.3 H, Plt Count 336, MPV 10.2, Immature Gran % (Auto) 0.300, Neut % (Auto) 63.8, Lymph % (Auto) 19.2, Clare % (Auto) 7.4, Eos % (Auto) 8.5 H, Baso % (Auto) 0.8, Absolute Neuts (auto) 5.8, Absolute Lymphs (auto) 1.74, Nucleated RBC % 0, PT 13.1 11/14/22 02:10: PT Cancelled, INR 1.0 11/14/22 02:10: INR Cancelled, APTT 31.6, Sodium 142, Potassium 3.5, Chloride 106, Carbon Dioxide 29.0, Anion Gap 7, BUN 23 H, Creatinine 1.78 H, Estim Creat Clear Calc 31.98, Est GFR (MDRD) Af Amer 48 L, Est GFR (MDRD) Non-Af 39 L, BUN/Creatinine Ratio 12.9, Glucose 107 H, Calcium 10.0, Troponin I High Sens 47 11/14/22 04:10: Magnesium 2.2, Troponin I High Sens 456 H* 11/14/22 08:06: Troponin I High Sens 1687 H* 11/14/22 10:34: APTT 68.4 H, Troponin I High Sens 2134 H* Cardiology Labs/Tests 11/14/22 02:10: WBC 9.1, RBC 4.77, Hgb 14.0, Hct 42.6, MCV 89.3, MCH 29.4, MCHC 32.9, Plt Count 336, MPV 10.2, Immature Gran % (Auto) 0.300, Neut % (Auto) 63.8,Lymph % (Auto) 19.2, Clare % (Auto) 7.4, Eos % (Auto) 8.5 H, Baso % (Auto) 0.8, Absolute Neuts (auto) 5.8, Nucleated RBC % 0, PT 13.1 11/14/22 02:10: PT Cancelled, INR 1.0 11/14/22 02:10: INR Cancelled, APTT 31.6, Sodium 142, Potassium 3.5, Chloride 106, Carbon Dioxide 29.0, Anion Gap 7, BUN 23 H, Creatinine 1.78 H, Est GFR (MDRD) Af Amer 48 L, Est GFR (MDRD) Non-Af 39 L, BUN/Creatinine Ratio 12.9, Glucose 107 H, Calcium 10.0 11/14/22 04:10: Magnesium 2.2 11/14/22 10:34: APTT 68.4 H Rhythm: EKG: ECHO: Stress Test: Cardiac Cath: PCI: CT Surgery: Holter monitor: EPS: PPM: CXR: Chest CT Scan: Radiography Diagnostic Testing: Radiology Impression Chest X-Ray 11/14/22 02:10 IMPRESSION: No evidence of acute cardiopulmonary disease. Electronically Signed: Brannon Degroot DO at 2:44 EDT Reading Location ID and State: [facility] / [place] Tel , Service support , 11/14/22 1218 <Electronically signed by Bethel Gallegos MD> Cosigner Signature (if applicable): CC: Dr. Delma Gonsalves MD; Dr. Spenser Sanchez MD; Dr. Bethel Gallegos MD; Dr.Natthavat Mini MD~ Signed [facility] Work Phone: 1(335) 815-339907-15-2023 Evaluation note* Diagnosis Onset Date Resolution Status Insomnia chronic Trigger finger acute Acute non-ST elevation myoca rdial infarction (NSTEMI) November 14, 2022 acute Atherosclerotic heart diseas e of [place] coronary artery without angina pectoris acute NSTEMI, initial episode of care acute History of endovascular sten t graft for abdominal aortic aneurysm (AAA) June 25, 2020 resolved Hypokalemia resolved Acute non-ST elevation myoca rdial infarction (NSTEMI) November 14, 2022 acute Atherosclerotic heart diseas e of [place] coronary artery without angina pectoris acute History of endovascular sten t graft for abdominal aortic aneurysm (AAA) June 25, 2020 resolved [id number] acute Acute non-ST elevation myoca rdial infarction (NSTEMI) November 14, 2022 acute Atherosclerotic heart diseas e of [place] coronary artery without angina pectoris acute SOB (shortness of breath) ac [place] History of endovascular sten t graft for abdominal aortic aneurysm (AAA) June 25, [address] [facility] Work Phone: 1(130) 742-600207-15-2023 Evaluation note* Diagnosis Onset Date Resolution Status Trigger finger acute Acute non-ST elevation myoca rdial infarction (NSTEMI) November 14, 2022 acute Atherosclerotic heart diseas e of [place] coronary artery without angina pectoris acute NSTEMI, initial episode of care acute History of endovascular sten t graft for abdominal aortic aneurysm (AAA) June 25, 2020 resolved Hypokalemia resolved Acute non-ST elevation myoca rdial infarction (NSTEMI) November 14, 2022 acute Atherosclerotic heart diseas e of [place] coronary artery without angina pectoris acute History of endovascular sten t graft for abdominal aortic aneurysm (AAA) June 25, 2020 resolved [id number] acute Atherosclerotic heart diseas e of [place] coronary artery without angina pectoris acute HFrEF (heart failure with re duced ejection fraction) acute SOB (shortness of breath) ac [place] History of endovascular sten t graft for abdominal aortic aneurysm (AAA) June 25, 2020 resolved [id number] acute Atherosclerotic heart diseas e of [place] coronary artery without angina pectoris acute HFrEF (heart failure with re duced ejection fraction) acute SOB (shortness of breath) ac [place] History of endovascular sten t graft for abdominal aortic aneurysm (AAA) June 25, 2020 resolved Asthmatic bronchitis with exacerbation acute [facility] Work Phone: 1(783) 824-312607-15-2023 Progress note Author Heri Ewing [facility] November 14, 2022 11:48am Note Date/Time November 14, 2022 8:45 am [facility] Medical Records Department [address] [place] [address] Progress Note - Hospitalist 11/14/22 0839 MR#: [id number] Acct: [id number] Name: BETTE CLEMENTS Rep #:[id number] : 1945 77 From: Heri Ewing DO PCP: Dr. Spenser Sanchez MD Status:A DM IN Location: [place] [address] Reason for Visit Reason for Visit: Diagnoses Non-ST elevation (NSTEMI) myocardial infarction (11/14/22) Subjective Subjective No further chest pain. Objective Data Objective Data Vital Signs: Vital Signs Temp Pulse Resp BP Pulse Ox O2 Del Method 36.8 C 75 16 150/81 H 96 Room Air 11/14/22 06:29 11/14/22 06:29 11/14/22 06:29 11/14/22 06:29 11/14/22 06:29 11/14/22 06:29 Oxygen Delivery Method Room Air Weight: 68.5 kg Body Mass Index (BMI) 22.4 Intake & Output: Intake and Output for Last 24 Hours 11/12/22 11/13/22 11/14/22 23:59 23:59 23:59 Intake Total 500 / 500 Balance 500 / 500 Lab / Micro Data 11/14/22 02:10 11/14/22 02:10 Labs: Laboratory Results - last 24 hr 11/14/22 02:10: WBC 9.1, RBC 4.77, Hgb 14.0, Hct 42.6, MCV 89.3, MCH 29.4, MCHC 32.9, RDW Std Deviation 50.1 H, RDW Coeff of Kylee 15.3 H, Plt Count 336, MPV 10.2, Immature Gran % (Auto) 0.300, Neut % (Auto) 63.8, Lymph % (Auto) 19.2, Clare % (Auto) 7.4, Eos % (Auto) 8.5 H, Baso % (Auto) 0.8, Absolute Neuts (auto) 5.8, Absolute Lymphs (auto) 1.74, Nucleated RBC % 0, PT 13.1 11/14/22 02:10: PT Cancelled, INR 1.0 11/14/22 02:10: INR Cancelled, APTT 31.6, Sodium 142, Potassium 3.5, Chloride 106, Carbon Dioxide 29.0, Anion Gap 7, BUN 23 H, Creatinine 1.78 H, Estim Creat Clear Calc 31.98, Est GFR (MDRD) Af Amer 48 L, Est GFR (MDRD) Non-Af 39 L, BUN/Creatinine Ratio 12.9, Glucose 107 H, Calcium 10.0, Troponin I High Sens 47 11/14/22 04:10: Magnesium 2.2, Troponin I High Sens 456 H* Radiography Diagnostic Testing: Radiology Impression Chest X-Ray 11/14/22 02:10 IMPRESSION: No evidence of acute cardiopulmonary disease. Electronically Signed: Brannon Degroot, DO at 2:44 EDT , Physical Exam Const alert and no apparent distress HEENT head/scalp atraumatic and moist oral mucous membranes Resp normal respiratory effort, no retractions, no use of accessory muscles and clearto auscultation bilaterally Cardio regular rate, regular rhythm, S1 normal heart sound and S2 normal heart sound GI normal to inspection, nondistended, normoactive bowel sounds, soft to palpation,non-tender and non-distended Extremity normal to inspection Assessment & Plan Assessment/Plan (1) NSTEMI, initial episode of care: PLAN: Troponins 456 Echo pending Cards consult TMT: * No ASA given allergy (SOB), no statin given h/o cramps * clopidogrel * heparin gtt * tentative plan for [facility] on 11/16 PLAN: Plan Chronic conditions: * Chronic Kidney Disease Stage III, unclear subtype: Admission BUN/Cr 23/1.78, baseline renal function primarily 1.4-1.8, repeat BMP in AM. * CAD: Status post prior PCI, will continue aspirin, not on beta-kimberley therapy as on verapamil, not on statin secondary to allergy, not on JU inhibitor/ARB per most current list but will clarify. * History AAA: Status post prior endovascular repair and graft-stent, continue plavix, hypertensive regimen, not on statin therapy secondary to intolerance. * Hypertension: Continue home regimen including verapamil, PRN hydralazine. * Hyperlipidemia: Noted statin allergy, FLP in AM. 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 * Former tobacco use: Encourage continued tobacco cessation. * Chronic COPD/asthma with chronic hypoxic respiratory failure: We will continue patient home 3 L nasal cannula supplementation nightly, will maintain on ATC budesonide therapy, PRN albuterol, HOB, IS parameters. * History of bowel obstruction: Status post partial colectomy, resolved. * BPH: We will continue patient home Flomax home regimen. * Anxiety and depression: We will continue patient home mirtazapine regimen, clarifying dose. DVT prophylaxis: Continue heparin drip. CODE status: DNRCCA no intubation Charges/Coding Visit Charges Inpatient E&M: 26192 Subs Hosp L2 11/14/22 1148 <Electronically signed by Heri Ewing DO> Cosigner Signature (if applicable): CC: ~ Signed [facility] Work Phone: 1(909) 328-425107-15-2023 Discharge summary Author Rafa Hernandez [facility] November 14, 2022 7:09am Note Date/Time November 14, 2022 5:13 am [facility] Medical Records Department [address] [place] [id number] Emergency Department Summary 11/14/22 MR#: [id number] Acct: [id number] Name: BETTE CLEMENTS Rep #:[id number] : 1945 77 From: Rafa Hernandez DO PCP: Dr. Spenser Sanchez MD Status:A DM IN Location: [address] History of Present Illness Chief Complaint: Chest Pain Informant: patient and EMS Narrative Narrative: Patient is a 77-year-old male with past medical history of coronary artery disease with previous stents with reported last stent being placed 2 years ago. He also has history of hypertension hyperlipidemia and COPD. Patient states that he was sleeping when he awoke with midsternal chest discomfort described asa pressure. He states there was slight radiation to the left and right but otherwise there is no associated nausea vomiting diaphoresis or shortness of breath. Patient states that this sensation was similar to his previous heart attacks and therefore EMS was called to bring the patient in for evaluation. [facility] Medical History AAA (abdominal aortic aneurysm) Abdominal aortic aneurysm (AAA) greater than 5.5 cm in diameter in male Alcohol abuse Allergy to dog dander Anemia Arthritis Asthma Atherosclerotic heart disease of [place] coronary artery without angina pectoris Back pain BPH (benign prostatic hyperplasia) Bronchiectasis Cancer Complete small bowel obstruction COPD (chronic obstructive pulmonary disease) Coronary artery disease Easy bruising Elevated PSA Epistaxis Essential (primary) hypertension Excessive bleeding Former smoker History of colon cancer History of ST elevation myocardial infarction (STEMI) (05/27/07) Hyperlipidemia Hypoxia Insomnia Iron deficiency Kidney stones Left inguinal hernia Low back pain Myocardial infarct 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) On home oxygen therapy Partial bowel obstruction Personal history of other malignant neoplasm of rectum, rectosigmoid junction, and anus Prostate CA Short bowel syndrome Sinus bradycardia 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 classification Tachycardia Therapeutic drug monitoring Trigger finger Wears glasses Home Medications fluticasone propionate 50 mcg/actuation nasal spray,suspension 1 spray intranasal BID congestion 05/09/20 [History Last Taken 07/24/22] garlic 2,000 mg capsule 2,000 mg PO DAILY 06/12/21 [History Last Taken 07/24/22] albuterol sulfate 90 mcg/actuation aerosol inhaler (Ventolin HFA) 2 puff inhalation Q4H PRN shortness of breath or wheezing #18 grams 07/02/21 [Rx Last Taken Unknown] formoterol fumarate 20 mcg/2 mL solution for nebulization (Perforomist) 2 ml inhalation Q12H copd #120 mL 12/25/21 [Rx Last Taken 07/23/22] clopidogrel 75 mg tablet 75 mg PO QHS blood thinner #90 tabs 01/08/22 [Rx Last Taken 07/24/22] budesonide 0.5 mg/2 mL suspension for nebulization 0.5 mg (2 mL) inhalation [id number] #180 mL 03/25/22 [Rx Last Taken 07/23/22] verapamil 240 mg tablet,extended release 240 mg PO QHS heart #90 tabs 04/28/22 [Rx Last Taken 07/24/22] ascorbic acid (vitamin C) 1,000 mg capsule 1 g PO DAILY 04/30/22 [History Last Taken 07/24/22] cholecalciferol (vitamin D3) 250 mcg (10,000 unit) capsule 250 mcg PO DAILY 04/30/22 [History Last Taken 07/24/22] glutamine 500 mg tablet (L-Glutamine) 500 mg PO BID 04/30/22 [History Last Taken 07/24/22] glutathione 500 mg capsule 50 mg PO DAILY SUPPLEMENT 04/30/22 [History Last Taken 07/24/22] lactobacillus combination no.9 4 billion cell capsule (Adult 50 Plus Probiotic) 4,000 mmu cells PO DAILY 04/30/22 [History Last Taken 07/24/22] magnesium 250 mg tablet 250 mg PO DAILY 04/30/22 [History Last Taken 07/24/22] multivitamin 2 tab PO DAILY 04/30/22 [History Last Taken 07/24/22] turmeric 400 mg capsule 400 mg PO DAILY SUPPLEMENT 04/30/22 [History Last Taken 07/24/22] vitamin B complex 1 cap PO DAILY 04/30/22 [History Last Taken 07/24/22] mirtazapine 15 mg tablet 15 mg PO QHS #90 tabs 08/17/22 [Rx Last Taken Unknown] mirtazapine 7.5 mg tablet 7.5 mg PO QHS #90 tabs 08/17/22 [Rx Last Taken Unknown] tamsulosin 0.4 mg capsule 0.4 mg PO QHS prostate #90 caps 10/13/22 [Rx Last Taken Unknown] Allergy/AdvReac Type Severity Reaction Status Date / Time aspirin Allergy Shortness Verified 11/14/22 02:11 of breath adhesive AdvReac Rash Verified 11/14/22 02:11 amoxicillin trihydrate AdvReac Other Verified 11/14/22 02:11 [From Augmentin] atorvastatin calcium AdvReac leg cramps Verified 11/14/22 02:11 [From Lipitor] isopropyl alcohol AdvReac Rash Verified 11/14/22 02:11 metoprolol succinate AdvReac Rash Verified 11/14/22 02:11 [From Toprol XL] naproxen [From Naprosyn] AdvReac Shortness Verified 11/14/22 02:11 of breath paroxetine HCl [From Paxil] AdvReac Unknown Verified 11/14/22 02:11 potassium clavulanate AdvReac tingling Verified 11/14/22 02:11 [From Augmentin] all over propoxyphene HCl AdvReac Unknown Verified 11/14/22 02:11 [From Darvon] sertraline HCl [From Zoloft] AdvReac Unknown Verified 11/14/22 02:11 simvastatin [From Zocor] AdvReac Unknown Verified 11/14/22 02:11 tiotropium bromide AdvReac Other Verified 11/14/22 02:11 [From Sp[facility] with [employer]] Family History Father Heart disease Hypertension High cholesterol CVA (cerebral vascular accident) Mother Dementia Surgical History H/O hernia repair History of coronary artery stent placement (06/07/20) History of endovascular stent graft for abdominal aortic aneurysm (AAA) (06/25/20) History of esophagogastroduodenoscopy (EGD) History of left heart catheterization (05/24/20) History of left inguinal hernia repair (06/2021) history of right eye surgery History of right inguinal hernia repair History of tonsillectomy History of tonsillectomy and adenoidectomy Hx of appendectomy Hx of bilateral cataract extraction Hx of colonoscopy Hx of sinus surgery Hx of thumb surgery Hx of umbilical hernia repair Status post laparoscopic colectomy Social History Smoking Status: Former smoker pack-years: 67 second hand exposure: No alcohol intake: current alcohol intake frequency: other Alcohol type: beer details: Previous nightly drinker. Stopped 2021 substance use type: does not use caffeine: Yes Type: coffee Number of servings: 4 what type of physical activity do you participate in: other details: pulmonary rehab frequency: 3-4 times per week ROS ROS ED Constitutional Constitutional ED: Denies chills or fever(s) ENT ENT ED: Denies sore throat Cardiovascular Cardiovascular: Reports chest pain; Denies palpitations or racing heartbeat Respiratory/Chest Respiratory/Chest: Denies cough or dyspnea Gastrointestinal Gastrointestinal: Denies abdominal pain, diarrhea, nausea or vomiting Genitourinary Genitourinary ED: Denies dysuria Musculoskeletal Musculoskeletal: Denies myalgias Integumentary Denies rash Neurologic Neurologic: Denies headache(s) Hematologic/Lymphatic Hematologic/Lymphatic: Reports easy bleeding and easy bruising EXAM Physical Exam Const Vital Signs: 11/14/22 02:07 11/14/22 02:12 11/14/22 02:13 Temperature 97.6 F L Temperature Source Oral Pulse Rate 90 Respiratory Rate 27 H Respiratory Effort Normal Respiratory Pattern Normal Blood Pressure 159/95 H Blood Pressure Mean 116 Pulse Ox 95 94 Oxygen Delivery Method Room Air Room Air 11/14/22 03:14 11/14/22 04:45 Temperature Temperature Source Pulse Rate 93 71 Respiratory Rate 22 H 16 Respiratory Effort Respiratory Pattern Blood Pressure 118/71 143/69 H Blood Pressure Mean 86 93 Pulse Ox 79 94 Oxygen Delivery Method Room Air Room Air Positive well nourished and well developed General Appearance ED: well developed HEENT HEENT Narrative: Normocephalic atraumatic Eyes PERRL and EOMs intact bilaterally General Eye ED: Negative for scleral icterus Neck supple and no JVD Chest Wall palpation of chest normal Chest Narrative: No bony deformity or crepitance of the chest wall no reproducible pain with palpation. Resp normal respiratory effort Resp Narrative: Breath sounds are diminished throughout with faint expiratory wheeze consistent with history of COPD but no signs of respiratory distress Cardio regular rate and regular rhythm Rate: other Other Details: Radial pulses are plus 2 out of 4 bilaterally are equal and symmetric Carotid pulses equal and symmetric as well GI normal to inspection, nondistended, normoactive bowel sounds, non-tender, non-distended and no masses GI Narrative: No voluntary guarding or rigidity no pulsatile mass or fluid wave Auscultation: normoactive bowel sounds Palpation: soft Extremity normal to inspection Extremity Narrative: No asymmetric edema no pitting edema negative Homans' sign bilaterally Neuro oriented x3 and CN's II-XII intact bilaterally Sensorium / Orientation: alert Psych mental status grossly normal Skin no rashes or lesions noted General Skin Exam: Negative for jaundice MDM MDM MDM Narrative Medical decision making narrative: Patient presented to the ER with stable vitals and reported resolution of his chest pain. He is high risk for an event based on his history of CAD and 8 previous stents. Secondary to this basic blood work was obtained as well as chest x-ray. Chest x- ray revealed no acute lung pathology such as pneumonia pneumothorax or pleural effusion as a cause of his chest discomfort at home. Initial troponin was normal at 47 and EKG revealed just nonspecific ST segment flattening without acute elevation to warrant myocardial infarction. 2-hour delta troponin was obtained based on his significant risk factors and report of spontaneous onset of chest pain at home. Repeat had elevated approximately 400 points to 456 indicating a non-STEMI. Patient was reevaluated at this time and still states that there is no active chest pain. The case was discussed with cardiology on-call and they recommend patient be placed on a heparin drip and states that as he has no active chest pain they will most likely cath him on Wednesday. The case was then discussed with the hospitalist as patient will require admission for continued anticoagulation and monitoring and they agreed except the patient for further care at this time. History & Record Review Discussion w/independent historian: EMS personnel and Patient Lab Data Attestation: I reviewed the patient's lab results. Labs: Laboratory Results - last 24 hr 11/14/22 11/14/22 11/14/22 02:10 02:10 02:10 WBC 9.1 RBC 4.77 Hgb 14.0 Hct 42.6 MCV 89.3 MCH 29.4 MCHC 32.9 RDW Std Deviation 50.1 H RDW Coeff of Kylee 15.3 H Plt Count 336 MPV 10.2 Immature Gran % (Auto) 0.300 Neut % (Auto) 63.8 Lymph % (Auto) 19.2 Clare % (Auto) 7.4 Eos % (Auto) 8.5 H Baso % (Auto) 0.8 Absolute Neuts (auto) 5.8 Absolute Lymphs (auto) 1.74 Nucleated RBC % 0 PT 13.1 Cancelled INR 1.0 Cancelled APTT 31.6 Sodium 142 Potassium 3.5 Chloride 106 Carbon Dioxide 29.0 Anion Gap 7 BUN 23 H Creatinine 1.78 H Estim Creat Clear Calc 31.98 Est GFR (MDRD) Af Amer 48 L Est GFR (MDRD) Non-Af 39 L BUN/Creatinine Ratio 12.9 Glucose 107 H Calcium 10.0 Magnesium Troponin I High Sens 47 11/14/22 04:10 WBC RBC Hgb Hct MCV MCH MCHC RDW Std Deviation RDW Coeff of Kylee Plt Count MPV Immature Gran % (Auto) Neut % (Auto) Lymph % (Auto) Clare % (Auto) Eos % (Auto) Baso % (Auto) Absolute Neuts (auto) Absolute Lymphs (auto) Nucleated RBC % PT INR APTT Sodium Potassium Chloride Carbon Dioxide Anion Gap BUN Creatinine Estim Creat Clear Calc Est GFR (MDRD) Af Amer Est GFR (MDRD) Non-Af BUN/Creatinine Ratio Glucose Calcium Magnesium 2.2 Troponin I High Sens 456 H* Radiography Diagnostic Testing: Clinical Impression(s) from Imaging Studies Chest X-Ray 11/14/22 02:10 IMPRESSION: No evidence of acute cardiopulmonary disease. Electronically Signed: Brannon Degroot DO at 2:44 EDT Reading Location ID and State: [facility] / [place] Tel , Service support , Chest x-rays interpreted by the emergency medicine physician reveals no acute infiltrate pneumothorax or pleural effusion Management Discussion w/another healthcare provider: Hospitalist and Authorization Rep Discharge Plan Dx/Rx/DC Orders Clinical Impression: Acute non-ST elevation myocardial infarction (NSTEMI), Essential (primary) hypertension, Hyperlipidemia, 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 classification Disposition Disposition: Acute Care Hospital [facility] Discharge Date/Time: 11/14/22 06:18 What to do if you have Problems For any increased pain, shortness of breath, bleeding, nausea or vomiting, chestpain, or any unexpected problems, contact your Primary Care Provider. Call [facility] ([phone]) or report to the closest Emergency Room. Call 911 if necessary. 11/14/22 0709 <Electronically signed by Rafa Hernandez DO> Cosigner Signature (if applicable): CC: Dr. Spenser Sanchez MD ~ Signed [facility] Work Phone: 1(183) 204-309207-15-2023 History and physical note Author Delma Gonsalves [facility] November 14, 2022 6:15am Note Date/Time November 14, 2022 5:15 am [facility] Medical Records Department [address] [place] [id number] H&P Exam - Hospitalist 11/14/22 0512 MR#: [id number] Acct: [id number] Name: BETTE CLEMENTS Rep #:[id number] : 1945 77 From: Delma Gonsalves MD PCP: Dr. Spenser Sanchez MD Status:A DM IN Location: [place] [address] HPI - General General Date of Admission: 11/14/22 Date of Service: 11/14/22 Chief Complaint: Chest pain. HPI Narrative The patient is a 77 y/o M w/ PMHx: CKD stage III unclear subtype, Hx bowel obstruction, Prostate CA actively undergoing treatments with Dr. Montaño, AAA s/pendovascular repair/stent, Former EtOH abuse, Asthma/COPD w/ chronic hypoxic respiratory failure (3L NC q HS), CAD s/p PCI, BPH, HTN, HLD, CAD s/p PCI x 8 most recently [address] Steinberg who presents to the [facility] ED on 11/14/22 with history of onset midsternal chest pain awakening him from sleep described as a tightness, starting ~ 4 hours prior to ED arrival, rated 10/10 with no diaphoresis, dyspnea, nausea or emesis prompting EMS call. Does report that the day prior to this onset he did have some chest discomfort which came onsuddenly while at rest with no associated dyspnea, diaphoresis, nausea or emesisand abated. He does not normally have any chest pain at baseline since his prior PCI necessity. In the ED chest pain resolved. Work-up in the ED included T97.6, heart rate 90, BP 159/95, respiratory rate 27, 95% on room air with most recent vital signs heart rate 71, BP 143/69, respiratory rate 16, 94% on room air, CBC with WBC 9.1, hemoglobin 14, platelet 236 without marked shift, unremarkable coags with INR 1.0, PT 13.1, BMP with BUN/creatinine 23/1.78, glucose 107, troponin initial 47 with repeat delta 457, chest x-ray with no acute cardiopulmonary findings, EKG upon ED presentation with SR with mild ST segment flattening in the lateral leads. In the ED patient initiated on a heparin drip and case was discussed per ED physician with nursing unit clerk Dr. Henson noted possible catheterization Wednesday if remain chest pain-free. [facility] Medical History AAA (abdominal aortic aneurysm) Abdominal aortic aneurysm (AAA) greater than 5.5 cm in diameter in male Alcohol abuse Allergy to dog dander Anemia Arthritis Asthma Atherosclerotic heart disease of [place] coronary artery without angina pectoris Back pain BPH (benign prostatic hyperplasia) Bronchiectasis Cancer Complete small bowel obstruction COPD (chronic obstructive pulmonary disease) Coronary artery disease Easy bruising Elevated PSA Epistaxis Essential (primary) hypertension Excessive bleeding Former smoker History of colon cancer History of ST elevation myocardial infarction (STEMI) (05/27/07) Hyperlipidemia Hypoxia Insomnia Iron deficiency Kidney stones Left inguinal hernia Low back pain Myocardial infarct 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) On home oxygen therapy Partial bowel obstruction Personal history of other malignant neoplasm of rectum, rectosigmoid junction, and anus Prostate CA Short bowel syndrome Sinus bradycardia 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 classification Tachycardia Therapeutic drug monitoring Trigger finger Wears glasses Home Medications fluticasone propionate 50 mcg/actuation nasal spray,suspension 1 spray intranasal BID congestion 05/09/20 [History Last Taken 07/24/22] garlic 2,000 mg capsule 2,000 mg PO DAILY 06/12/21 [History Last Taken 07/24/22] albuterol sulfate 90 mcg/actuation aerosol inhaler (Ventolin HFA) 2 puff inhalation Q4H PRN shortness of breath or wheezing #18 grams 07/02/21 [Rx Last Taken Unknown] formoterol fumarate 20 mcg/2 mL solution for nebulization (Perforomist) 2 ml inhalation Q12H copd #120 mL 12/25/21 [Rx Last Taken 07/23/22] clopidogrel 75 mg tablet 75 mg PO QHS blood thinner #90 tabs 01/08/22 [Rx Last Taken 07/24/22] budesonide 0.5 mg/2 mL suspension for nebulization 0.5 mg (2 mL) inhalation [id number] #180 mL 03/25/22 [Rx Last Taken 07/23/22] verapamil 240 mg tablet,extended release 240 mg PO QHS heart #90 tabs 04/28/22 [Rx Last Taken 07/24/22] ascorbic acid (vitamin C) 1,000 mg capsule 1 g PO DAILY 04/30/22 [History Last Taken 07/24/22] cholecalciferol (vitamin D3) 250 mcg (10,000 unit) capsule 250 mcg PO DAILY 04/30/22 [History Last Taken 07/24/22] glutamine 500 mg tablet (L-Glutamine) 500 mg PO BID 04/30/22 [History Last Taken 07/24/22] glutathione 500 mg capsule 50 mg PO DAILY SUPPLEMENT 04/30/22 [History Last Taken 07/24/22] lactobacillus combination no.9 4 billion cell capsule (Adult 50 Plus Probiotic) 4,000 mmu cells PO DAILY 04/30/22 [History Last Taken 07/24/22] magnesium 250 mg tablet 250 mg PO DAILY 04/30/22 [History Last Taken 07/24/22] multivitamin 2 tab PO DAILY 04/30/22 [History Last Taken 07/24/22] turmeric 400 mg capsule 400 mg PO DAILY SUPPLEMENT 04/30/22 [History Last Taken 07/24/22] vitamin B complex 1 cap PO DAILY 04/30/22 [History Last Taken 07/24/22] mirtazapine 15 mg tablet 15 mg PO QHS #90 tabs 08/17/22 [Rx Last Taken Unknown] mirtazapine 7.5 mg tablet 7.5 mg PO QHS #90 tabs 08/17/22 [Rx Last Taken Unknown] tamsulosin 0.4 mg capsule 0.4 mg PO QHS prostate #90 caps 10/13/22 [Rx Last Taken Unknown] Allergy/AdvReac Type Severity Reaction Status Date / Time aspirin Allergy Shortness Verified 11/14/22 02:11 of breath adhesive AdvReac Rash Verified 11/14/22 02:11 amoxicillin trihydrate AdvReac Other Verified 11/14/22 02:11 [From Augmentin] atorvastatin calcium AdvReac leg cramps Verified 11/14/22 02:11 [From Lipitor] isopropyl alcohol AdvReac Rash Verified 11/14/22 02:11 metoprolol succinate AdvReac Rash Verified 11/14/22 02:11 [From Toprol XL] naproxen [From Naprosyn] AdvReac Shortness Verified 11/14/22 02:11 of breath paroxetine HCl [From Paxil] AdvReac Unknown Verified 11/14/22 02:11 potassium clavulanate AdvReac tingling Verified 11/14/22 02:11 [From Augmentin] all over propoxyphene HCl AdvReac Unknown Verified 11/14/22 02:11 [From Darvon] sertraline HCl [From Zoloft] AdvReac Unknown Verified 11/14/22 02:11 simvastatin [From Zocor] AdvReac Unknown Verified 11/14/22 02:11 tiotropium bromide AdvReac Other Verified 11/14/22 02:11 [From Spiriva with HandiHaler] Family History Father Heart disease Hypertension High cholesterol CVA (cerebral vascular accident) Mother Dementia Surgical History H/O hernia repair History of coronary artery stent placement (06/07/20) History of endovascular stent graft for abdominal aortic aneurysm (AAA) (06/25/20) History of esophagogastroduodenoscopy (EGD) History of left heart catheterization (05/24/20) History of left inguinal hernia repair (06/2021) history of right eye surgery History of right inguinal hernia repair History of tonsillectomy History of tonsillectomy and adenoidectomy Hx of appendectomy Hx of bilateral cataract extraction Hx of colonoscopy Hx of sinus surgery Hx of thumb surgery Hx of umbilical hernia repair Status post laparoscopic colectomy Social History Smoking Status: Former smoker pack-years: 67 second hand exposure: No alcohol intake: current alcohol intake frequency: other Alcohol type: beer details: Previous nightly drinker. Stopped 2021 substance use type: does not use caffeine: Yes Type: coffee Number of servings: 4 what type of physical activity do you participate in: other details: pulmonary rehab frequency: 3-4 times per week ROS ROS Narrative Admission Review of Systems: CONSTITUTIONAL: No weight loss, fever, chills, + weakness or fatigue. HEENT: Eyes: No visual loss, blurred vision, double vision or yellow sclerae. Ears, Nose, Throat: No hearing loss, sneezing, congestion, runny nose or sore throat. SKIN: No rash or itching, lesions, wounds. CARDIOVASCULAR: + chest pain, chest pressure or chest discomfort, No palpitations, edema, orthopnea, syncopal events. RESPIRATORY: + Chronic shortness of breath, occasional cough without marked sputum, occasional wheezing, No hemoptysis. GASTROINTESTINAL: No anorexia, nausea, vomiting or diarrhea, abdominal pain, melena, BRBPR. GENITOURINARY: No dysuria, frequency, urgency or retention. NEUROLOGICAL: No headache, dizziness, syncope, paralysis, ataxia, numbness or tingling in the extremities, focal weakness, change in bowel or bladder control,seizure. MUSCULOSKELETAL: + muscle, back pain, joint pain or stiffness. HEMATOLOGIC: + Easy bleeding or bruising. LYMPHATICS: No enlarged nodes. No history of splenectomy. PSYCHIATRIC: No history of depression or anxiety. ENDOCRINOLOGIC: No reports of sweating, cold or heat intolerance. No polyuria orpolydipsia. ALLERGIES: No history of asthma, hives, eczema or rhinitis. Vital Signs Vital Signs Vital Signs: 11/14/22 02:07 11/14/22 02:12 11/14/22 02:13 Temperature 97.6 F L Temperature Source Oral Pulse Rate 90 Respiratory Rate 27 H Respiratory Effort Normal Respiratory Pattern Normal Blood Pressure 159/95 H Blood Pressure Mean 116 Pulse Ox 95 94 Oxygen Delivery Method Room Air Room Air 11/14/22 03:14 11/14/22 04:45 Temperature Temperature Source Pulse Rate 93 71 Respiratory Rate 22 H 16 Respiratory Effort Respiratory Pattern Blood Pressure 118/71 143/69 H Blood Pressure Mean 86 93 Pulse Ox 79 94 Oxygen Delivery Method Room Air Room Air Weight Weight: 153 lb 3.54 oz Body Mass Index (BMI) 24.0 Physical Exam Narrative Physical Examination: General: Awake, alert, oriented x 3 and cooperative, seated upright in the ED bed in no apparent distress, chest pain remains resolved. Skin: Normal color, normal turgor, no icterus, no cyanosis. HEENT: AT/NC, EOMI, PERRLA, MMM, no carotid bruits or JVD noted. Lungs: Diminished, greater bases, appropriate effort, no rales, ronchi or wheezing. Heart: Regular rate and rhythm; no gallop, rub audible. Abdomen: Soft, NTTP, ND, normal BS, no HSM. Extremities: No cyanosis, clubbing, or edema. Neurological: Patient awake, alert, oriented as noted, cognitive function intact; pupils equally reactive to light and accommodation, cranial nerves II-XII grossly normal, moving all 4 extremities, no focal deficits, strength mildlyto moderately global decrease secondary to acute presentation but improved givenchest pain resolution. Psychiatric: Affect appears fatigued, no acute evidence of depressive or anxietyfeelings. Results Lab / Micro Data 11/14/22 02:10 11/14/22 02:10 Labs: Laboratory Results - last 24 hr 11/14/22 02:10: WBC 9.1, RBC 4.77, Hgb 14.0, Hct 42.6, MCV 89.3, MCH 29.4, MCHC 32.9, RDW Std Deviation 50.1 H, RDW Coeff of Kylee 15.3 H, Plt Count 336, MPV 10.2, Immature Gran % (Auto) 0.300, Neut % (Auto) 63.8, Lymph % (Auto) 19.2, Clare % (Auto) 7.4, Eos % (Auto) 8.5 H, Baso % (Auto) 0.8, Absolute Neuts (auto) 5.8, Absolute Lymphs (auto) 1.74, Nucleated RBC % 0, PT 13.1, INR 1.0, Sodium 142, Potassium 3.5, Chloride 106, Carbon Dioxide 29.0, Anion Gap 7, BUN 23 H, Creatinine 1.78 H, Estim Creat Clear Calc 31.98, Est GFR (MDRD) Af Amer 48 L, Est GFR (MDRD) Non-Af 39 L, BUN/Creatinine Ratio 12.9, Glucose 107 H, Calcium 10.0, Troponin I High Sens 47 11/14/22 04:10: Troponin I High Sens 456 H* Radiology Impression Chest X-Ray 11/14/22 02:10 IMPRESSION: No evidence of acute cardiopulmonary disease. Electronically Signed: Brannon Degroot DO at 2:44 EDT , Assessment & Plan Assessment/Plan (1) NSTEMI, initial episode of care: PLAN: Plan The patient is a 77 y/o M w/ PMHx: CKD stage III unclear subtype, Hx bowel obstruction, Prostate CA actively undergoing treatments with Dr. Montaño, AAA s/pendovascular repair/stent, Former EtOH abuse, Asthma/COPD w/ chronic hypoxic respiratory failure (3L NC q HS), CAD s/p PCI, BPH, HTN, HLD, CAD s/p PCI x 8 most recently [address] Steinberg who presents to the [facility] ED on 11/14/22 with history of onset midsternal chest pain awakening him from sleep. #1. Chest Pain w/ Acute NSTEMI: EKG upon ED presentation with SR with mild ST segment flattening in the lateral leads, CXR w/ no acute cardiopulmonary findings. Trop elevated, initial 47 with repeat delta 547. Will admit to PCU, maintain on a monitored bed, continue serial cardiac enzymes and EKGs. Obtain magnesium level upon admission. We will continue heparin drip initiated in the ED. Continue medical management w/ plavix given ASA allergy, not on beta-kimberley is on verapamil, statin intolerant. ECHO requested. Cardiology consultedand aware of case noting potential cardiac catheterization if remains chest pain-free Wednesday. FLP in AM. NG, morphine. #2. Chronic Kidney Disease Stage III, unclear subtype: Admission BUN/Cr 23/1.78, baseline renal function primarily 1.4-1.8, repeat BMP in AM. #3. CAD: Status post prior PCI, will continue aspirin, not on beta-kimberley therapy as on verapamil, not on statin secondary to allergy, not on JU inhibitor/ARB per most current list but will clarify. #4. History AAA: Status post prior endovascular repair and graft-stent, continue plavix, hypertensive regimen, not on statin therapy secondary to intolerance. #5. Hypertension: Continue home regimen including verapamil, PRN hydralazine. #6. Hyperlipidemia: Noted statin allergy, FLP in AM. #7. Former alcohol abuse: Previous heavy beer intake, reportedly sober since 2021. #8. Former tobacco use: Encourage continued tobacco cessation. #9. Chronic COPD/asthma with chronic hypoxic respiratory failure: We will continue patient home 3 L nasal cannula supplementation nightly, will maintain on ATC budesonide therapy, PRN albuterol, HOB, IS parameters. #10. History of bowel obstruction: Status post partial colectomy, resolved. #11. BPH: We will continue patient home Flomax home regimen. #12. Anxiety and depression: We will continue patient home mirtazapine regimen,clarifying dose. #13. DVT prophylaxis: Continue heparin drip. #14. CODE status: Patient ROXANA is his son Khadijah and living will is currently in place. Discussed CODE status at length including difference between FULL code, DNR-CCA and DNR-CC status. Following discussions about the differences in these status, requested DNR-CCA, no intubation status. Advanced Care Planning Face to Face Time: 16 minutes. Admission Evaluation Time spent evaluating chart, patient history, patient evaluation, care planning and discussion with specialists: 60 minutes. Charges/Coding Visit Charges Inpatient E&M: 99201 Init Hosp L2 Procedures Hospitalists Procedures: 62623 Advncd Care Plan 30 Min 11/14/22 0614 <Electronically signed by Delma Gonsalves MD> Cosigner Signature (if applicable): CC: Dr. Delma Gonsalves MD; Dr. Spenser Sanchez MD~ Signed ADDENDUM by Dr. Delma Gonsalves MD on 11/14/22 at 0615 Addendum Prostate cancer: Clarification, patient has ongoing current treatment with Dr. Montaño, and has upcoming repeat PSA with reevaluation on 11/30/2022 reportedly having an injection x1. 11/14/22 0615<Electronically signed by Delma Gonsalves MD> Cosigner Signature (if applicable): cc: Dr. Delma Gonsalves MD; Dr. Spenser Sanchez MD ~* Signed [facility] Work Phone: 1(912) 645-434107-02-2023 Discharge summary Author Thomas Oropeza [facility] November 01, 2022 1:22pm Note Date/Time November 01, 2022 8:27a [facility] Medical Records Department [address] [place] [address] Emergency Department Summary 11/01/22 MR#: [id number] Acct: [id number] Name: BETTE CLEMENTS Rep #:[id number] : 1945 77 From: Thomas Oropeza MD PCP: Dr. Spenser Sanchez MD Status:R EG ER Location: ED HPI History of Present Illness Chief Complaint: Hypertension Detail of Chief Complaint: Intermittent nonexertional chest pain Informant: patient Onset/Context/Timing Onset: Days Context: Gradual Onset Timing: Intermittent Current Severity: Gone Maximum Severity: Mild Narrative Narrative: 77-year-old male extensive past medical history of prior MD in 2007 he is a cardiac stents 5 placed 2 years ago. History of hypertension and COPD. States he is taking care of his is developing dementia has been quite stressful. He said with distress he intermittently gets anterior chest pain. Not associated with exertion. No shortness of breath. No leg pain or swelling. Nohistory of DVT or PE or risk factors. No recent hospitalization. Currently symptom-free. Also said his blood pressures been running higher than baseline. Prior similar symptoms: No Recent Illness/Hospitalization: No PFSH PFSH Medical History AAA (abdominal aortic aneurysm) Abdominal aortic aneurysm (AAA) greater than 5.5 cm in diameter in male Alcohol abuse Allergy to dog dander Anemia Arthritis Asthma Atherosclerotic heart disease of [place] coronary artery without angina pectoris Back pain BPH (benign prostatic hyperplasia) Bronchiectasis Cancer Complete small bowel obstruction COPD (chronic obstructive pulmonary disease) Coronary artery disease Easy bruising Elevated PSA Epistaxis Essential (primary) hypertension Excessive bleeding Former smoker History of colon cancer History of ST elevation myocardial infarction (STEMI) (05/27/07) Hyperlipidemia Hypoxia Insomnia Iron deficiency Kidney stones Left inguinal hernia Low back pain Myocardial infarct 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) On home oxygen therapy Partial bowel obstruction Personal history of other malignant neoplasm of rectum, rectosigmoid junction, and anus Prostate CA Short bowel syndrome Sinus bradycardia 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 classification Tachycardia Therapeutic drug monitoring Trigger finger Wears glasses Home Medications fluticasone propionate 50 mcg/actuation nasal spray,suspension 1 spray intranasal BID congestion 05/09/20 [History Last Taken 07/24/22] garlic 2,000 mg capsule 2,000 mg PO DAILY 06/12/21 [History Last Taken 07/24/22] albuterol sulfate 90 mcg/actuation aerosol inhaler (Ventolin HFA) 2 puff inhalation Q4H PRN shortness of breath or wheezing #18 grams 07/02/21 [Rx Last Taken Unknown] formoterol fumarate 20 mcg/2 mL solution for nebulization (Perforomist) 2 ml inhalation Q12H copd #120 mL 12/25/21 [Rx Last Taken 07/23/22] clopidogrel 75 mg tablet 75 mg PO QHS blood thinner #90 tabs 01/08/22 [Rx Last Taken 07/24/22] budesonide 0.5 mg/2 mL suspension for nebulization 0.5 mg (2 mL) inhalation [id number] #180 mL 03/25/22 [Rx Last Taken 07/23/22] verapamil 240 mg tablet,extended release 240 mg PO QHS heart #90 tabs 04/28/22 [Rx Last Taken 07/24/22] ascorbic acid (vitamin C) 1,000 mg capsule 1 g PO DAILY 04/30/22 [History Last Taken 07/24/22] cholecalciferol (vitamin D3) 250 mcg (10,000 unit) capsule 250 mcg PO DAILY 04/30/22 [History Last Taken 07/24/22] glutamine 500 mg tablet (L-Glutamine) 500 mg PO BID 04/30/22 [History Last Taken 07/24/22] glutathione 500 mg capsule 50 mg PO DAILY SUPPLEMENT 04/30/22 [History Last Taken 07/24/22] lactobacillus combination no.9 4 billion cell capsule (Adult 50 Plus Probiotic) 4,000 mmu cells PO DAILY 04/30/22 [History Last Taken 07/24/22] magnesium 250 mg tablet 250 mg PO DAILY 04/30/22 [History Last Taken 07/24/22] multivitamin 2 tab PO DAILY 04/30/22 [History Last Taken 07/24/22] turmeric 400 mg capsule 400 mg PO DAILY SUPPLEMENT 04/30/22 [History Last Taken 07/24/22] vitamin B complex 1 cap PO DAILY 04/30/22 [History Last Taken 07/24/22] mirtazapine 15 mg tablet 15 mg PO QHS #90 tabs 08/17/22 [Rx Last Taken Unknown] mirtazapine 7.5 mg tablet 7.5 mg PO QHS #90 tabs 08/17/22 [Rx Last Taken Unknown] tamsulosin 0.4 mg capsule 0.4 mg PO QHS prostate #90 caps 10/13/22 [Rx Last Taken Unknown] levofloxacin 750 mg tablet 750 mg PO Q24H 7 days #7 tabs 10/28/22 [Rx Last Taken Unknown] prednisone 20 mg tablet 60 mg (3 x 20 mg) PO QDAY #15 tabs 10/28/22 [Rx Last Taken Unknown] Allergy/AdvReac Type Severity Reaction Status Date / Time aspirin Allergy Shortness Verified 10/26/22 13:53 of breath adhesive AdvReac Rash Verified 10/26/22 13:53 amoxicillin trihydrate AdvReac Other Verified 10/26/22 13:53 [From Augmentin] atorvastatin calcium AdvReac leg cramps Verified 10/26/22 13:53 [From Lipitor] isopropyl alcohol AdvReac Rash Verified 10/26/22 13:53 metoprolol succinate AdvReac Rash Verified 10/26/22 13:53 [From Toprol XL] naproxen [From Naprosyn] AdvReac Shortness Verified 10/26/22 13:53 of breath paroxetine HCl [From Paxil] AdvReac Unknown Verified 10/26/22 13:53 potassium clavulanate AdvReac tingling Verified 10/26/22 13:53 [From Augmentin] all over propoxyphene HCl AdvReac Unknown Verified 10/26/22 13:53 [From Darvon] sertraline HCl [From Zoloft] AdvReac Unknown Verified 10/26/22 13:53 simvastatin [From Zocor] AdvReac Unknown Verified 10/26/22 13:53 tiotropium bromide AdvReac Other Verified 10/26/22 13:53 [From Spiriva with HandiHaler] Family History Father Heart disease Hypertension High cholesterol CVA (cerebral vascular accident) Mother Dementia Surgical History H/O hernia repair History of coronary artery stent placement (06/07/20) History of endovascular stent graft for abdominal aortic aneurysm (AAA) (06/25/20) History of esophagogastroduodenoscopy (EGD) History of left heart catheterization (05/24/20) History of left inguinal hernia repair (06/2021) history of right eye surgery History of right inguinal hernia repair History of tonsillectomy History of tonsillectomy and adenoidectomy Hx of appendectomy Hx of bilateral cataract extraction Hx of colonoscopy Hx of sinus surgery Hx of thumb surgery Hx of umbilical hernia repair Status post laparoscopic colectomy Social History Smoking Status: Former smoker pack-years: 67 second hand exposure: No alcohol intake: current alcohol intake frequency: other Alcohol type: beer details: Previous nightly drinker. Stopped 2021 substance use type: does not use caffeine: Yes Type: coffee Number of servings: 4 what type of physical activity do you participate in: other details: pulmonary rehab frequency: 3-4 times per week ROS ROS ED ROS Narrative Denies Review of Systems ROS Unobtainable: Denies due to encephalopathy Constitutional Constitutional ED: Denies chills or fever(s) Eyes Eyes: Denies blurry vision ENT ENT ED: Denies ear pain Cardiovascular Cardiovascular: Reports chest pain Respiratory/Chest Respiratory/Chest: Denies cough or dyspnea Gastrointestinal Gastrointestinal: Reports diarrhea; Denies constipation, melena, nausea or vomiting Genitourinary Genitourinary ED: Denies dysuria or hematuria Musculoskeletal Musculoskeletal: Denies arthralgias Integumentary Denies abscess or Abrasions Neurologic Neurologic: Denies headache(s) Psychiatric Psychiatric: Denies anxiety Endocrine Endocrinology: Denies cold intolerance Hematologic/Lymphatic Hematologic/Lymphatic: Reports none Allergic/Immunologic Allergic/Immunologic ED: Denies mouth swelling or tongue swelling EXAM Physical Exam Narrative Exam Narrative: 69-year-old male no acute distress. Vital signs stable. Afebrile. His initialblood pressure was 188/111. When I entered the room he was 182/79. He does notlook septic toxic or in any distress. Currently he is not having any chest pain. H EENT exam unremarkable. Neck nontender. Lungs are clear. Heart regular rhythm rate about 80 no murmur. Chest wall nontender. Abdomen is soft and nontender. Moving all 4 extremities. Calves nontender without edema or cords. Equal symmetrical radial pulses. Neurologically is awake alert with no focal motor deficits. Const Vital Signs: 11/01/22 08:10 11/01/22 08:17 11/01/22 10:18 Temperature 97.8 F Temperature Source Oral Pulse Rate 87 81 Respiratory Rate 16 16 Respiratory Effort Normal Respiratory Pattern Normal Blood Pressure 188/111 H 182/99 H Blood Pressure Mean 136 126 Pulse Ox 96 95 Oxygen Delivery Method Room Air Room Air 11/01/22 11:15 11/01/22 11:16 Temperature Temperature Source Pulse Rate 81 Respiratory Rate 18 Respiratory Effort Respiratory Pattern Blood Pressure 113/81 H Blood Pressure Mean 91 Pulse Ox 98 Oxygen Delivery Method Room Air Room Air Positive well nourished and well developed; Negative for obese, cachectic, contractures or unkempt General Appearance ED: well developed and NAD; Negative for unkempt, cachectic, contractures, cyanotic, diaphoretic or pallor Nutritional Appearance: Negative for cachectic or obese HEENT Reports moist mucous membranes; Denies dry mucous membranes Negative for trauma or tenderness Mouth ED: No dry mucous membranes Mouth: No dry mucous membranes Eyes PERRL and EOMs intact bilaterally General Eye ED: Negative for pale conjunctiva, scleral icterus or other Neck no lymphadenopathy, supple and no JVD General: Negative for tenderness Lymph Lymphatic: Negative for other Chest Wall inspection of chest normal and palpation of chest normal Chest: Negative for other Resp normal respiratory effort and clear to auscultation bilaterally Effort and Inspection: Negative for retractions Auscultation: Negative for rales, rhonchi or wheezes Cardio regular rate, regular rhythm, S1 normal heart sound, S2 normal heart sound and no murmurs Palpation: Negative for palpable S3 Rate: Negative for bradycardia Rhythm: Negative for abnormal rhythm GI normal to inspection, nondistended, normoactive bowel sounds, non-tender, non-distended and no masses Inspection: Negative for abdominal distention Auscultation: normoactive bowel sounds Palpation: soft; Negative for tender or guarding Back/Spine no CVA tenderness General Back: Negative for CVA tenderness Cervical Spine: Negative for cervical spine tenderness Thoracic Spine / Upper Back: Negative for thoracic spinal tenderness Lumbar Spine / Lower Back: Negative for lumbar spinal tenderness Extremity normal to inspection General Extremety ED: Negative for edema or tenderness General Extremity: Negative for edema Neuro oriented x3, CN's II-XII intact bilaterally and no sensory deficits noted Sensorium / Orientation: alert; Negative for orientation impaired, lethargic or stuporous Sensory Exam: No sensory level loss detected Motor Exam: strength 5/5 throughout; Negative for general weakness Psych mental status grossly normal Appearance: Negative for unkempt Attitude: No agitated Mood & Affect: Negative for depressed, anxious or tearful Skin no rashes or lesions noted, no wounds and skin turgor normal General Skin Exam: Negative for jaundice or pallor Lesions: No lesion noted Rashes: No rashes noted Trauma: Negative for abrasion Wounds: Negative for wounds noted MDM MDM MDM Narrative Medical decision making narrative: 77-year-old male with atypical nonexertional chest pain and elevated blood pressure. The chest pain does not sound cardiac. Undergo cardiac work-up. We will watch his blood pressure he does not need a acutely lowered at this time. Repeat exam at 1:10 PM patient is doing well. Pain-free. Blood pressure is 171/98. I discussed with both the patient and his son at bedside they did not want to be started on blood pressure medication at this time. He should have follow-up with either his primary care physician or his nursing unit clerk Dr. Christiano Steinberg to see if they want to start him on any medications. He said his primary care physician has been talking to them about that. He was on them in the past but his pressure was running too low. Patient will log his blood pressures twice daily and follow-up. He knows to return if feeling worse. History & Record Review Discussion w/independent historian: Patient Lab Data Attestation: I reviewed the patient's lab results. Lab results narrative: CBC unremarkable. White count of 10. H&H 14 and 42. Platelets 345. Chemistries show potassium 3.1 a gap of 5. BUN and creatinine 29 and 1.52. Troponin is 32. Compared to prior all labs these are unremarkable. He has a chronic renal insufficiency. Labs: Laboratory Results - last 24 hr 11/01/22 11:10 WBC 10.4 RBC 4.81 Hgb 14.0 Hct 42.5 MCV 88.4 MCH 29.1 MCHC 32.9 RDW Std Deviation 48.8 H RDW Coeff of Kylee 15.0 H Plt Count 345 MPV 10.3 Immature Gran % (Auto) 0.600 Neut % (Auto) 71.8 H Lymph % (Auto) 16.9 L Clare % (Auto) 8.6 Eos % (Auto) 1.6 Baso % (Auto) 0.5 Absolute Neuts (auto) 7.4 Absolute Lymphs (auto) 1.75 Nucleated RBC % 0 Sodium 142 Potassium 3.1 L Chloride 108 H Carbon Dioxide 29.0 Anion Gap 5 BUN 29 H Creatinine 1.52 H Estim Creat Clear Calc 37.45 Est GFR (MDRD) Af Amer 57 L Est GFR (MDRD) Non-Af 47 L BUN/Creatinine Ratio 19.1 Glucose 88 Calcium 9.5 Troponin I High Sens 32 Radiography Chest X-Ray - ED: 1 View, Read by ED Physician, Read by Radiologist, Heart, Lungs, Mediastinum, Bony Structures, No Acute Disease and Chronic Changes Diagnostic Testing: Clinical Impression(s) from Imaging Studies Chest X-Ray 11/01/22 10:55 IMPRESSION: COPD changes. No active pulmonary disease. Electronically Signed: Mesfin Villarreal MD at 12:11 EDT , Chest x-ray chronic changes. No acute process. Normal cardiac silhouette mediastinum. No infiltrates. Interpreted both by myself and the radiologist. Rhythm Strip Rhythm Strip: Sinus Rhythm Rate: 78 Ectopy: None EKG Initial EKG: Attestation: I personally reviewed and interpreted this EKG as follows: Interpretation: Sinus Rhythm and No Acute Injury Pattern Comments: Normal sinus rhythm rate of 78 no acute signs of MD or ischemia. Discharge Plan Triage Chief Complaint: Hypertension ED Provider: Thomas Oropeza Dx/Rx/DC Orders Clinical Impression: History of renal insufficiency, Chest pain, Hypertension Instructions: ED Chest Pain, Uncertain Cause, ED Hypertension, To Be Confirmed Prescriptions: No Action fluticasone propionate 50 mcg/actuation spray,suspension 1 spray INTRANASAL BID Rx Instructions: administer into each nostril multivitamin Tablet 2 tab PO DAILY magnesium 250 mg tablet 250 mg PO DAILY L-Glutamine 500 mg tablet 500 mg PO BID vitamin B complex Capsule 1 cap PO DAILY cholecalciferol (vitamin D3) 250 mcg (10,000 unit) capsule 250 mcg PO DAILY ascorbic acid (vitamin C) 1,000 mg capsule 1 g PO DAILY glutathione 500 mg capsule 50 mg PO DAILY Adult 50 Plus Probiotic 4 billion cell capsule 4,000 mmu cells PO DAILY Rx Instructions: administer with a meal turmeric 400 mg capsule 400 mg PO DAILY garlic 2,000 mg Capsule 2,000 mg PO DAILY albuterol sulfate [Ventolin HFA] 90 mcg/actuation HFA aerosol inhaler 2 puff inhalation Q4H PRN (Reason: shortness of breath or wheezing) Qty: 18 6RF formoterol fumarate [Perforomist] 20 mcg/2 mL solution for nebulization 2 ml inhalation Q12H Qty: 120 11RF clopidogrel 75 mg tablet 75 mg PO QHS Qty: 90 3RF Patient Comments: STOPPING 3 DAYS PRIOR budesonide 0.5 mg/2 mL suspension for nebulization 0.5 mg INHALATION Q12H Qty: 180 11RF verapamil 240 mg tablet extended release 240 mg PO QHS Qty: 90 3RF mirtazapine 7.5 mg tablet 7.5 mg PO QHS Qty: 90 3RF Rx Instructions: Take a 15 mg tablet for total nightly dose of 22.5mg QHS mirtazapine 15 mg tablet 15 mg PO QHS Qty: 90 3RF tamsulosin 0.4 mg capsule 0.4 mg PO QHS Qty: 90 1RF prednisone 20 mg tablet 60 mg PO QDAY Qty: 15 0RF Rx Instructions: administer with food or milk levofloxacin 750 mg tablet 750 mg PO Q24H 7 Days Qty: 7 0RF Primary Care Provider: Spenser Sanchez Referrals: Spenser Sanchez MD [Primary Care Provider] - 1 Week Activity Restrictions/Additional Instructions: Log your blood pressure daily and follow-up with either Dr. Christiano Steinberg or Dr Sanchez to determine if they want to start you on a blood pressure medication. Disposition Disposition: Home, Self Care What to do if you have Problems For any increased pain, shortness of breath, bleeding, nausea or vomiting, chestpain, or any unexpected problems, contact your Primary Care Provider. Call [facility] ([phone]) or report to the closest Emergency Room. Call 911 if necessary. 11/01/22 1322 <Electronically signed by Thomas Oropeza MD> Cosigner Signature (if applicable): CC: Dr. Spenser Sanchez MD ~ Signed [facility] Work Phone: 1(504) 706-523303-26-[address] Zarate [facility] July 26, 2022 10:57am Note Date/Time July 26, 2022 10: 43am [facility] Medical Records Department [address] [place] [address] Progress Note - Surgery 07/26/22 1043 MR#: [id number] Acct: [id number] Name: BETTE CLEMENTS Rep #:[id number] : 1945 77 From: Marcela Zarate MD PCP: Dr. Spenser Sanchez MD Status:A DM IN Location: [place]3 TB461-6 Subjective Subjective patient feeling much improved denies abdominal pain passing flatus and has had bowel movements Objective Data Objective Data Vital Signs: Vital Signs Temp Pulse Resp BP Pulse Ox O2 Del Method O2 Flow Rate 98.6 F 90 18 155/89 H 97 Room Air 3 07/26/22 10:21 07/26/22 10:21 07/26/22 10:21 07/26/22 10:21 07/26/22 10:21 07/26/22 10:21 07/26/22 08:31 Oxygen Flow Rate (L/min) 3 Oxygen Delivery Method Room Air Weight: 67.993 kg Body Mass Index (BMI) 23.4 Intake & Output: Intake and Output for Last 24 Hours 07/24/22 07/25/22 07/26/22 23:59 23:59 23:59 Intake Total 2270.00 / 2270.00 1195 / 1195 Output Total 775 / 775 300 / 300 Balance 1495.00 / 1495.00 895 / 895 Lab / Micro Data Attestation: I reviewed the patient's lab results. Result Diagrams: 07/26/22 06:00 07/26/22 06:00 Labs: Laboratory Results - last 24 hr 07/26/22 06:00: WBC 8.3, RBC 4.26 L, Hgb 11.9 L, Hct 38.5 L, MCV 90.4, MCH 27.9,MCHC 30.9 L, RDW Std Deviation 52.0 H, RDW Coeff of Kylee 15.9 H, Plt Count 339, MPV 10.6, Immature Gran % (Auto) 0.200, Neut % (Auto) 72.1 H, Lymph % (Auto) 12.2 L, Clare % (Auto) 8.1, Eos % (Auto) 6.3 H, Baso % (Auto) 1.1 H, Absolute Neuts (auto) 6.0, Absolute Lymphs (auto) 1.01, Nucleated RBC % 0 07/26/22 06:00: Phosphorus 2.9, Magnesium 2.1 07/26/22 06:00: Sodium 142, Potassium 4.0, Chloride 112 H, Carbon Dioxide 27.0, Anion Gap 3 L, BUN 23 H, Creatinine 1.51 H, Estim Creat Clear Calc 37.69, Est GFR (MDRD) Af Amer 58 L, Est GFR (MDRD) Non-Af 48 L, BUN/Creatinine Ratio 15.2, Glucose 102, Calcium 8.7 Radiography Diagnostic Testing: Radiology Impression KUB X-Ray 07/25/22 12:00 IMPRESSION: Enteric tube terminating within the expected region of the gastric fundus. Small bowel obstruction. Electronically Signed: Nuha Woodson MD at 12:18 EDT , Physical Exam Const alert and oriented x3 General Appearance: cooperative Neck supple Resp normal respiratory effort Effort and Inspection: able to speak in complete sentences GI GI Narrative: abdomen is soft and benign Assessment & Plan Assessment/Plan (1) Partial bowel obstruction: PLAN: SBO has resolved, will start on full liquids patient can slowly advance diet at home patient to follow up with his PCP for his hypertension and increasing serum creatinine d/c NG tube d/c to home PLAN: Plan see above 07/26/22 1057 <Electronically signed by Marcela Zarate MD> Cosigner Signature (if applicable): CC: ~ Signed [facility] Work Phone: 1(113) 441-316203-26-[address] Zarate [facility] July 26, 2022 10:44am Note Date/Time July 26, 2022 10: 44am [facility] Medical Records Department [address] [place] [id number] Instructions for Home/Discharge Instructions 07/26/22 1043 MR#: [id number] Acct: [id number] Name: BETTE CLEMENTS Rep #:[id number] : 1945 77 From: Marcela Zarate MD PCP: Dr. Spenser Sanchez MD Status:A DM IN Discharge Instructions Diet Discharge Diet: - (see below) Activity Discharge Activity: Return to Normal Activity Follow Up Care Test Results: Test results from this visit will be discussed in further detail at your follow- up appointment, if applicable. Discharge Plan Admission Admit Date/Time: 07/25/22 12:07 Attending Provider: Tiki Saldivar Primary Care Provider: Spenser Sanchez Consulting Providers: Robel Figueredo Instructions Additional Instructions / Restrictions: Follow up with your PCP Advance diet slowly over the next 2-3 days Discharge Orders/Prescriptions Prescriptions: No Action fluticasone propionate 50 mcg/actuation spray,suspension 1 spray INTRANASAL BID Rx Instructions: administer into each nostril multivitamin Tablet 2 tab PO DAILY magnesium 250 mg tablet 250 mg PO DAILY L-Glutamine 500 mg tablet 500 mg PO BID vitamin B complex Capsule 1 cap PO DAILY cholecalciferol (vitamin D3) 250 mcg (10,000 unit) capsule 250 mcg PO DAILY ascorbic acid (vitamin C) 1,000 mg capsule 1 g PO DAILY glutathione 500 mg capsule 50 mg PO DAILY Adult 50 Plus Probiotic 4 billion cell capsule 4,000 mmu cells PO DAILY Rx Instructions: administer with a meal turmeric 400 mg capsule 400 mg PO DAILY garlic 2,000 mg Capsule 2,000 mg PO DAILY albuterol sulfate [Ventolin HFA] 90 mcg/actuation HFA aerosol inhaler 2 puff inhalation Q4H PRN (Reason: shortness of breath or wheezing) Qty: 18 6RF formoterol fumarate [Perforomist] 20 mcg/2 mL solution for nebulization 2 ml inhalation Q12H Qty: 120 11RF clopidogrel 75 mg tablet 75 mg PO QHS Qty: 90 3RF Label Comments: STOPPING 3 DAYS PRIOR budesonide 0.5 mg/2 mL suspension for nebulization 0.5 mg INHALATION Q12H Qty: 180 11RF tamsulosin 0.4 mg capsule 0.4 mg PO QHS Qty: 90 1RF verapamil 240 mg tablet extended release 240 mg PO QHS Qty: 90 3RF mirtazapine 15 mg tablet 15 mg PO QHS Qty: 30 2RF Referrals / Follow Up: Spenser Sanchez MD [Primary Care Provider] - Disposition Discharge Orders: Discharge Patient (Routine); Ordered 07/26/22 Ordered By: Dr. Marcela Zarate 07/26/22 1044<Electronically signed by Marcela Zarate MD>Marcela Zarate MD CC: Dr. Spenser Sanchez MD; Dr. Robel Figueredo MD ~ Signed [facility] Work Phone: [phone]) 930-374703-25-[address] Eli [facility] July 25, 2022 5:24pm Note Date/Time July 25, 2022 7:2 4am [facility] Medical Records Department [address] [place] [id number] Emergency Department Summary 07/25/22 MR#: [id number] Acct: [id number] Name: BETTE CLEMENTS Destiny Rep #:[id number] : 1945 77 From: Barney Eli MD PCP: Dr. Efewongbe Oleghe, MD Status:A DM IN Location: MS3 [id number] HPI HPI - GI History of Present Illness Chief Complaint: Nausea/Vomiting Informant: patient and EMS Abdominal Pain/Flank Pain Onset: Today Context: Gradual Onset Timing: Continuous Quality: Aching Location: Diffuse (Points periumbilical) Current Severity: Moderate Maximum Severity: Moderate Nausea/Vomiting/Emesis GI Symptom: Positive for Nausea and Vomiting Onset: Hours (4) Diarrhea/Melena/Hematochezia GI Symptom: Negative for Diarrhea, Melena or Hematochezia Associated Symptoms Associated Symptoms: Negative for Dysuria, Frequency or Hematuria Narrative Narrative: Patient started having abdominal pain overnight, along with the bloating, followed by vomiting. Has been vomiting significantly over the past 4 hours, called EMS for evaluation here. Lives with his who is not ill. No fevers or chills. No recent travel out of the area or contact with anyone who he knowsof who has similar symptoms. He has had multiple abdominal surgeries in the past, the last one was a herniorrhaphy and was sometime last year. He also has had another herniorrhaphy, AAA repair, and colorectal surgery remotely. No diarrhea acutely, last bowel movement was sometime yesterday. [facility] Medical History (Updated 07/25/22 @ 10:[address] Barney Eli MD) AAA (abdominal aortic aneurysm) Abdominal aortic aneurysm (AAA) greater than 5.5 cm in diameter in male Alcohol abuse Allergy to dog dander Anemia Arthritis Asthma Atherosclerotic heart disease of [place] coronary artery without angina pectoris Back pain BPH (benign prostatic hyperplasia) Bronchiectasis Cancer COPD (chronic obstructive pulmonary disease) Easy bruising Elevated PSA Epistaxis Essential (primary) hypertension Excessive bleeding Former smoker History of colon cancer History of ST elevation myocardial infarction (STEMI) (05/27/07) Hyperlipidemia Hypoxia Insomnia Iron deficiency Kidney stones Left inguinal hernia Low back pain Myocardial infarct 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) On home oxygen therapy Personal history of other malignant neoplasm of rectum, rectosigmoid junction, and anus Short bowel syndrome Sinus bradycardia Smoker 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 classification Tachycardia Therapeutic drug monitoring Wears glasses Home Medications fluticasone propionate 50 mcg/actuation nasal spray,suspension 1 spray intranasal BID congestion 05/09/20 [History Last Taken Unknown] garlic 2,000 mg capsule 2,000 mg PO DAILY 06/12/21 [History Last Taken Unknown] ipratropium 20 mcg-albuterol 100 mcg/actuation mist for inhalation 2 puff inhalation PRN PRN Shortness Of Breath #4 grams 06/16/21 [Rx Last Taken 06/19/21] albuterol sulfate 90 mcg/actuation aerosol inhaler (Ventolin HFA) 2 puff inhalation Q4H PRN shortness of breath or wheezing #18 grams 07/02/21 [Rx Last Taken Unknown] formoterol fumarate 20 mcg/2 mL solution for nebulization (Perforomist) 2 ml inhalation Q12H copd #120 mL 12/25/21 [Rx Last Taken Unknown] clopidogrel 75 mg tablet 75 mg PO QHS blood thinner #90 tabs 01/08/22 [Rx Last Taken Unknown] budesonide 0.5 mg/2 mL suspension for nebulization 0.5 mg (2 mL) inhalation O30Killq #180 mL 03/25/22 [Rx Last Taken Unknown] tamsulosin 0.4 mg capsule 0.4 mg PO QHS prostate #90 caps 04/15/22 [Rx Last Taken Unknown] verapamil 240 mg tablet,extended release 240 mg PO QHS heart #90 tabs 04/28/22 [Rx Last Taken Unknown] ascorbic acid (vitamin C) 1,000 mg capsule 1 g PO DAILY 04/30/22 [History Last Taken Unknown] cholecalciferol (vitamin D3) 250 mcg (10,000 unit) capsule 250 mcg PO DAILY 04/30/22 [History Last Taken Unknown] glutamine 500 mg tablet (L-Glutamine) 500 mg PO BID 04/30/22 [History Last Taken Unknown] glutathione 500 mg capsule mg PO DAILY 04/30/22 [History Last Taken Unknown] lactobacillus combination no.9 4 billion cell capsule (Adult 50 Plus Probiotic) 4,000 mmu cells PO DAILY 04/30/22 [History Last Taken Unknown] magnesium 250 mg tablet 250 mg PO DAILY 04/30/22 [History Last Taken Unknown] multivitamin 2 tab PO DAILY 04/30/22 [History Last Taken Unknown] red yeast rice and coq10 PO 04/30/22 [History Last Taken Unknown] turmeric 400 mg capsule mg PO DAILY 04/30/22 [History Last Taken Unknown] vitamin B complex 1 cap PO DAILY 04/30/22 [History Last Taken Unknown] mirtazapine 15 mg tablet 15 mg PO QHS #30 tabs 06/24/22 [Rx Last Taken Unknown] Valarian root PO 07/06/22 [History Last Taken Unknown] Allergy/AdvReac Type Severity Reaction Status Date / Time aspirin Allergy Shortness Verified 07/06/22 13:20 of breath adhesive AdvReac Rash Verified 07/06/22 13:20 amoxicillin trihydrate AdvReac Other Verified 07/06/22 13:20 [From Augmentin] atorvastatin calcium AdvReac leg cramps Verified 07/06/22 13:20 [From Lipitor] isopropyl alcohol AdvReac Rash Verified 07/06/22 13:20 metoprolol succinate AdvReac Rash Verified 07/06/22 13:20 [From Toprol XL] naproxen [From Naprosyn] AdvReac Shortness Verified 07/06/22 13:20 of breath paroxetine HCl [From Paxil] AdvReac Unknown Verified 07/06/22 13:20 potassium clavulanate AdvReac tingling Verified 07/06/22 13:20 [From Augmentin] all over propoxyphene HCl AdvReac Unknown Verified 07/06/22 13:20 [From Darvon] sertraline HCl [From Zoloft] AdvReac Unknown Verified 07/06/22 13:20 simvastatin [From Zocor] AdvReac Unknown Verified 07/06/22 13:20 tiotropium bromide AdvReac Other Verified 07/06/22 13:20 [From Spiriva with HandiHaler] Family History Father Heart disease Hypertension High cholesterol CVA (cerebral vascular accident) Mother Dementia Surgical History History of coronary artery stent placement (06/07/20) History of endovascular stent graft for abdominal aortic aneurysm (AAA) (06/25/20) History of esophagogastroduodenoscopy (EGD) History of left heart catheterization (05/24/20) History of left inguinal hernia repair (06/2021) history of right eye surgery History of right inguinal hernia repair History of tonsillectomy History of tonsillectomy and adenoidectomy Hx of appendectomy Hx of bilateral cataract extraction Hx of colonoscopy Hx of sinus surgery Hx of thumb surgery Hx of umbilical hernia repair Status post laparoscopic colectomy Social History Smoking Status: Former smoker pack-years: 67 second hand exposure: No alcohol intake: current alcohol intake frequency: other Alcohol type: beer details: Previous nightly drinker. Stopped 2021 substance use type: does not use caffeine: Yes Type: coffee Number of servings: 4 what type of physical activity do you participate in: other details: pulmonary rehab frequency: 3-4 times per week ROS ROS ED Constitutional Constitutional ED: Denies chills or fever(s) Eyes Eyes: Denies change in vision or diplopia ENT ENT ED: Denies rhinorrhea or sore throat Cardiovascular Cardiovascular: Denies chest pain or palpitations Respiratory/Chest Respiratory/Chest: Reports cough; Denies dyspnea Gastrointestinal Gastrointestinal: Reports abdominal pain, bloating, nausea and vomiting; Denies diarrhea Genitourinary Genitourinary ED: Denies dysuria or hematuria Musculoskeletal Musculoskeletal: Denies back pain or neck pain Integumentary Denies abscess or rash Neurologic Neurologic: Denies headache(s), paresthesias or weakness Psychiatric Psychiatric: Denies anxiety or suicidal thoughts EXAM Physical Exam Const Vital Signs: 07/25/22 07:16 07/25/22 09:50 Temperature 96.2 F L Temperature Source Temporal Pulse Rate 95 87 Respiratory Rate 16 16 Blood Pressure 143/100 H 167/81 H Blood Pressure Mean 114 109 Pulse Ox 98 97 Oxygen Delivery Method Room Air Room Air Positive well nourished and well developed General Appearance ED: well developed and NAD HEENT Reports moist mucous membranes normocephalic and atraumatic Eyes PERRL and EOMs intact bilaterally Neck full ROM and supple Resp normal respiratory effort and clear to auscultation bilaterally Resp Narrative: Diminished throughout, symmetric. Conversive in full sentences. Cardio regular rate and regular rhythm Cardio Narrative: Faint heart sounds GI GI Narrative: Distended, soft. Diffusely tender worse throughout the right side negative Andrews. No pulsatile mass. Equal symmetric 2+ dorsalis pedis pulses. No guarding or rebound tenderness. Normal inspection no [place] sign. Bowel soundsare present but hypoactive. Back/Spine no CVA tenderness General Back: other FROM Extremity normal to inspection General Extremety ED: Negative for edema, pulses abnormal or tenderness General Extremity: Negative for edema or pulses abnormal Neuro oriented x3, CN's II-XII intact bilaterally and no sensory deficits noted Sensorium / Orientation: awake and alert Motor Exam: strength 5/5 throughout Skin no rashes or lesions noted and no wounds MDM MDM MDM Narrative Medical decision making narrative: Labs and urinalysis noted. CT was obtained with oral contrast only, we held on the IV contrast after seeing his low EGFR. He was hydrated, symptoms were treated, still nauseated even after [address] consistent with a small bowel obstruction with movement of the oral contrast very short distancein the small bowel. My interpretation of the CT agrees with that of the radiologist. Discussed with Dr. Zarate, who advises an NG tube being placed whichthe patient is amenable to given our discussion about it, and she will consult and recommends admission to medicine with his other medical issues. Lab Data Attestation: I reviewed the patient's lab results. Labs: Laboratory Results - last 24 hr 07/25/22 07/25/22 07/25/22 07:22 07:22 09:50 WBC 16.8 H RBC 5.37 Hgb 15.1 Hct 46.9 MCV 87.3 MCH 28.1 MCHC 32.2 RDW Std Deviation 50.4 H RDW Coeff of Kylee 15.8 H Plt Count 435 MPV 10.4 Immature Gran % (Auto) 0.600 Neut % (Auto) 89.5 H Lymph % (Auto) 3.7 L Clare % (Auto) 4.8 Eos % (Auto) 0.8 Baso % (Auto) 0.6 Absolute Neuts (auto) 15.1 H Absolute Lymphs (auto) 0.62 L Nucleated RBC % 0 Sodium 139 Potassium 4.6 Chloride 106 Carbon Dioxide 27.0 Anion Gap 6 BUN 30 H Creatinine 1.79 H Estim Creat Clear Calc 30.36 Est GFR (MDRD) Af Amer 47 L Est GFR (MDRD) Non-Af 39 L BUN/Creatinine Ratio 16.8 Glucose 151 H Calcium 10.5 H Total Bilirubin 0.70 AST 28 ALT 28 Alkaline Phosphatase 97 Total Protein 7.5 Albumin 4.1 Globulin 3.4 Albumin/Globulin Ratio 1.2 Lipase 184 Urine Color Yellow Urine Clarity Clear Urine pH 6.5 Ur Specific [place] 1.015 Urine Protein 30 H Urine Glucose (UA) Normal Urine Ketones Negative Urine Occult Blood Negative Urine Nitrite Negative Urine Bilirubin Negative Urine Urobilinogen Normal Ur Leukocyte Esterase 25 H Urine RBC 0 SEEN Urine WBC 0-5 SEEN Ur Squamous Epith Cells 0 SEEN Urine Bacteria 0 SEEN Urine Mucus 0 SEEN Radiography Diagnostic Testing: Clinical Impression(s) from Imaging Studies Abdomen/Pelvis CT 07/25/22 07:19 IMPRESSION: Small bowel obstruction. Stable infrarenal abdominal aortic aneurysm measuring up to 5.5 cm in the transverse dimension. Enlarged prostate gland. Colonic diverticulosis. Moderate amount of stool throughout the colon. Emphysema. Atherosclerosis. Electronically Signed: Nuha Woodson MD at 10:13 EDT , Discharge Plan Triage Chief Complaint: Nausea/Vomiting ED Provider: Barney Eli Dx/Rx/DC Orders Clinical Impression: Complete small bowel obstruction Prescriptions: No Action fluticasone propionate 50 mcg/actuation spray,suspension 1 spray INTRANASAL BID Rx Instructions: administer into each nostril Valarian root PO multivitamin Tablet 2 tab PO DAILY magnesium 250 mg tablet 250 mg PO DAILY L-Glutamine 500 mg tablet 500 mg PO BID vitamin B complex Capsule 1 cap PO DAILY cholecalciferol (vitamin D3) 250 mcg (10,000 unit) capsule 250 mcg PO DAILY ascorbic acid (vitamin C) 1,000 mg capsule 1 g PO DAILY glutathione 500 mg capsule PO DAILY Adult 50 Plus Probiotic 4 billion cell capsule 4,000 mmu cells PO DAILY Rx Instructions: administer with a meal turmeric 400 mg capsule PO DAILY red yeast rice and coq10 PO Rx Instructions: 1 tab daily, 1215 mg garlic 2,000 mg Capsule 2,000 mg PO DAILY ipratropium-albuterol 20-100 mcg/actuation mist 2 puff INHALATION PRN PRN (Reason: Shortness Of Breath) Qty: 4 5RF albuterol sulfate [Ventolin HFA] 90 mcg/actuation HFA aerosol inhaler 2 puff inhalation Q4H PRN (Reason: shortness of breath or wheezing) Qty: 18 6RF formoterol fumarate [Perforomist] 20 mcg/2 mL solution for nebulization 2 ml inhalation Q12H Qty: 120 11RF clopidogrel 75 mg tablet 75 mg PO QHS Qty: 90 3RF Label Comments: STOPPING 3 DAYS PRIOR budesonide 0.5 mg/2 mL suspension for nebulization 0.5 mg INHALATION Q12H Qty: 180 11RF tamsulosin 0.4 mg capsule 0.4 mg PO QHS Qty: 90 1RF verapamil 240 mg tablet extended release 240 mg PO QHS Qty: 90 3RF mirtazapine 15 mg tablet 15 mg PO QHS Qty: 30 2RF Primary Care Provider: Spenser Sanchez Referrals: Spenser Sanchez MD [Primary Care Provider] - Disposition Disposition: Acute Care Hospital [facility] What to do if you have Problems For any increased pain, shortness of breath, bleeding, nausea or vomiting, chestpain, or any unexpected problems, contact your Primary Care Provider. Call [facility] ([phone]) or report to the closest Emergency Room. Call 911 if necessary. 07/25/22 1724 <Electronically signed by Barney Eli MD> Cosigner Signature (if applicable): CC: Dr. Spenser Sanchez MD ~ Signed [facility] Work Phone: 1(849) 196-866103-25-2023 History and physical note Author Nick Maguire [facility] July 25, 2022 5:06pm Note Date/Time July 25, 2022 5:[address] [facility] Medical Records Department [address] [place] [id number] H&P Exam - Hospitalist 07/25/22 1654 MR#: [id number] Acct: [id number] Name: BETTE CLEMENTS Rep #:[id number] : 1945 77 From: Nick Maguire MD PCP: Dr. Spenser Sanchez MD Status:A DM IN Location: [place] [id number] HPI - General General Date of Admission: 07/25/22 Date of Service: 07/25/22 Chief Complaint: vomiting and Abd pain. HPI Narrative BETTE CLEMENTS, is a 77 M who presents w/ distension and vomiting, and called EMS with abdominal pain as well. Pt was having normal bm till yesterday. States thispresetnation is similar to one last year when he had a small bowel obstruction. He has hx of colon cancer in 2007 - last colonoscopy in 2020 per patient. He hasno bleeding. The patient has felt markedly improved with NGT decompression and pain medicine administration. On admission he had a CT which showed small bowel obstruction with movement of the oral contrast very short distance in the small bowel. Labs with mild hyperglycemia, CKD as prior, elevated WBC to mid teens. He is not a smoker. [facility] Medical History (Updated 07/25/22 @ 17:[address] Nick Maguire MD) AAA (abdominal aortic aneurysm) Abdominal aortic aneurysm (AAA) greater than 5.5 cm in diameter in male Alcohol abuse Allergy to dog dander Anemia Arthritis Asthma Atherosclerotic heart disease of [place] coronary artery without angina pectoris Back pain BPH (benign prostatic hyperplasia) Bronchiectasis Cancer Complete small bowel obstruction COPD (chronic obstructive pulmonary disease) Easy bruising Elevated PSA Epistaxis Essential (primary) hypertension Excessive bleeding Former smoker History of colon cancer History of ST elevation myocardial infarction (STEMI) (05/27/07) Hyperlipidemia Hypoxia Insomnia Iron deficiency Kidney stones Left inguinal hernia Low back pain Myocardial infarct 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) On home oxygen therapy Personal history of other malignant neoplasm of rectum, rectosigmoid junction, and anus Short bowel syndrome Sinus bradycardia 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 classification Tachycardia Therapeutic drug monitoring Wears glasses Home Medications fluticasone propionate 50 mcg/actuation nasal spray,suspension 1 spray intranasal BID congestion 05/09/20 [History Last Taken 07/24/22] garlic 2,000 mg capsule 2,000 mg PO DAILY 06/12/21 [History Last Taken 07/24/22] albuterol sulfate 90 mcg/actuation aerosol inhaler (Ventolin HFA) 2 puff inhalation Q4H PRN shortness of breath or wheezing #18 grams 07/02/21 [Rx Last Taken Unknown] formoterol fumarate 20 mcg/2 mL solution for nebulization (Perforomist) 2 ml inhalation Q12H copd #120 mL 12/25/21 [Rx Last Taken 07/23/22] clopidogrel 75 mg tablet 75 mg PO QHS blood thinner #90 tabs 01/08/22 [Rx Last Taken 07/24/22] budesonide 0.5 mg/2 mL suspension for nebulization 0.5 mg (2 mL) inhalation P48Oprvy #180 mL 03/25/22 [Rx Last Taken 07/23/22] tamsulosin 0.4 mg capsule 0.4 mg PO QHS prostate #90 caps 04/15/22 [Rx Last Taken 07/24/22] verapamil 240 mg tablet,extended release 240 mg PO QHS heart #90 tabs 04/28/22 [Rx Last Taken 07/24/22] ascorbic acid (vitamin C) 1,000 mg capsule 1 g PO DAILY 04/30/22 [History Last Taken 07/24/22] cholecalciferol (vitamin D3) 250 mcg (10,000 unit) capsule 250 mcg PO DAILY 04/30/22 [History Last Taken 07/24/22] glutamine 500 mg tablet (L-Glutamine) 500 mg PO BID 04/30/22 [History Last Taken 07/24/22] glutathione 500 mg capsule 50 mg PO DAILY SUPPLEMENT 04/30/22 [History Last Taken 07/24/22] lactobacillus combination no.9 4 billion cell capsule (Adult 50 Plus Probiotic) 4,000 mmu cells PO DAILY 04/30/22 [History Last Taken 07/24/22] magnesium 250 mg tablet 250 mg PO DAILY 04/30/22 [History Last Taken 07/24/22] multivitamin 2 tab PO DAILY 04/30/22 [History Last Taken 07/24/22] turmeric 400 mg capsule 400 mg PO DAILY SUPPLEMENT 04/30/22 [History Last Taken 07/24/22] vitamin B complex 1 cap PO DAILY 04/30/22 [History Last Taken 07/24/22] mirtazapine 15 mg tablet 15 mg PO QHS #30 tabs 06/24/22 [Rx Last Taken 07/24/22] Allergy/AdvReac Type Severity Reaction Status Date / Time aspirin Allergy Shortness Verified 07/06/22 13:20 of breath adhesive AdvReac Rash Verified 07/06/22 13:20 amoxicillin trihydrate AdvReac Other Verified 07/06/22 13:20 [From Augmentin] atorvastatin calcium AdvReac leg cramps Verified 07/06/22 13:20 [From Lipitor] isopropyl alcohol AdvReac Rash Verified 07/06/22 13:20 metoprolol succinate AdvReac Rash Verified 07/06/22 13:20 [From Toprol XL] naproxen [From Naprosyn] AdvReac Shortness Verified 07/06/22 13:20 of breath paroxetine HCl [From Paxil] AdvReac Unknown Verified 07/06/22 13:20 potassium clavulanate AdvReac tingling Verified 07/06/22 13:20 [From Augmentin] all over propoxyphene HCl AdvReac Unknown Verified 07/06/22 13:20 [From Darvon] sertraline HCl [From Zoloft] AdvReac Unknown Verified 07/06/22 13:20 simvastatin [From Zocor] AdvReac Unknown Verified 07/06/22 13:20 tiotropium bromide AdvReac Other Verified 07/06/22 13:20 [From Spiriva with HandiHaler] Family History Father Heart disease Hypertension High cholesterol CVA (cerebral vascular accident) Mother Dementia Surgical History H/O hernia repair History of coronary artery stent placement (06/07/20) History of endovascular stent graft for abdominal aortic aneurysm (AAA) (06/25/20) History of esophagogastroduodenoscopy (EGD) History of left heart catheterization (05/24/20) History of left inguinal hernia repair (06/2021) history of right eye surgery History of right inguinal hernia repair History of tonsillectomy History of tonsillectomy and adenoidectomy Hx of appendectomy Hx of bilateral cataract extraction Hx of colonoscopy Hx of sinus surgery Hx of thumb surgery Hx of umbilical hernia repair Status post laparoscopic colectomy Social History Smoking Status: Former smoker pack-years: 67 second hand exposure: No alcohol intake: current alcohol intake frequency: other Alcohol type: beer details: Previous nightly drinker. Stopped 2021 substance use type: does not use caffeine: Yes Type: coffee Number of servings: 4 what type of physical activity do you participate in: other details: pulmonary rehab frequency: 3-4 times per week Vital Signs Vital Signs Vital Signs: 07/25/22 07:16 07/25/22 09:50 07/25/22 12:40 Temperature 96.2 F L 98 F Temperature Source Temporal Temporal Pulse Rate 95 87 81 Respiratory Rate 16 16 14 Respiratory Effort Blood Pressure 143/100 H 167/81 H 143/78 H Blood Pressure Mean 114 109 99 Blood Pressure Source Blood Pressure Position Blood Pressure Location Pulse Ox 98 97 92 Oxygen Delivery Method Room Air Room Air Room Air 07/25/22 13:06 07/25/22 13:30 07/25/22 16:31 Temperature 97.9 F 99.2 F H Temperature Source Oral Oral Pulse Rate 83 90 85 Respiratory Rate 18 16 Respiratory Effort Normal Blood Pressure 155/85 H 132/65 H Blood Pressure Mean 108 87 Blood Pressure Source Monitor Manual Blood Pressure Position Semi-Fowlers Semi-Fowlers Blood Pressure Location Right Arm Right Arm Pulse Ox 93 93 Oxygen Delivery Method Room Air Room Air Room Air Weight Weight: 149 lb 14.4 oz Body Mass Index (BMI) 23.4 Physical Exam Const alert, no apparent distress and average body habitus HEENT normocephalic and head/scalp atraumatic Eyes PERRL Resp normal respiratory effort GI GI Narrative: no gaurding, mildly distended. NGT in place. No tenderness when i palpated. Auscultation: hyperactive bowel sounds Extremity no clubbing, cyanosis or edema Psych affect normal Results Medical Records Data Attestation: I reviewed the patient's medical records Lab / Micro Data Attestation: I reviewed the patient's lab results. Result Diagrams: 07/25/22 07:22 07/25/22 07:22 Labs: Laboratory Results - last 24 hr 07/25/22 07:22: WBC 16.8 H, RBC 5.37, Hgb 15.1, Hct 46.9, MCV 87.3, MCH 28.1, MCHC 32.2, RDW Std Deviation 50.4 H, RDW Coeff of Kylee 15.8 H, Plt Count 435, MPV10.4, Immature Gran % (Auto) 0.600, Neut % (Auto) 89.5 H, Lymph % (Auto) 3.7 L, Clare % (Auto) 4.8, Eos % (Auto) 0.8, Baso % (Auto) 0.6, Absolute Neuts (auto) 15.1 H, Absolute Lymphs (auto) 0.62 L, Nucleated RBC % 0 07/25/22 07:22: Sodium 139, Potassium 4.6, Chloride 106, Carbon Dioxide 27.0, Anion Gap 6, BUN 30 H, Creatinine 1.79 H, Estim Creat Clear Calc 30.36, Est GFR (MDRD) Af Amer 47 L, Est GFR (MDRD) Non-Af 39 L, BUN/Creatinine Ratio 16.8, Glucose 151 H, Calcium 10.5 H, Total Bilirubin 0.70, AST 28, ALT 28, Alkaline Phosphatase 97, Total Protein 7.5, Albumin 4.1, Globulin 3.4, Albumin/Globulin Ratio 1.2, Lipase 184 07/25/22 09:50: Urine Color Yellow, Urine Clarity Clear, Urine pH 6.5, Ur Specific [place] 1.015, Urine Protein 30 H, Urine Glucose (UA) Normal, Urine Ketones Negative, Urine Occult Blood Negative, Urine Nitrite Negative, Urine Bilirubin Negative, Urine Urobilinogen Normal, Ur Leukocyte Esterase 25 H, UrineRBC 0 SEEN, Urine WBC 0-5 SEEN, Ur Squamous Epith Cells 0 SEEN, Urine Bacteria 0SEEN, Urine Mucus 0 SEEN Radiology Impression Abdomen/Pelvis CT 07/25/22 07:19 IMPRESSION: Small bowel obstruction. Stable infrarenal abdominal aortic aneurysm measuring up to 5.5 cm in the transverse dimension. Enlarged prostate gland. Colonic diverticulosis. Moderate amount of stool throughout the colon. Emphysema. Atherosclerosis. Electronically Signed: Nuha Woodson MD at 10:13 EDT , KUB X-Ray 07/25/22 12:00 IMPRESSION: Enteric tube terminating within the expected region of the gastric fundus. Small bowel obstruction. 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 Had recent BM in last 24 hours. - Continue NGT and NPO status, IV fluids at 100 per hour, avoid opiates where possible, Appreciate surgery recs. - continue inhalers from home - hold plavix - Hold nonessential meds/vitamins given NGT - BID heparin for Lovenox prophylaxis. - Zofran for nausea - PT - Incentive spirometry - Labs reviewed, trend CBC, BMP, replace electroylytes as needec - He is DNR CCA no intubation, no CPR reviewed at bedside. Charges/Coding Visit Charges Inpatient E&M: 04085 Init Hosp L2 07/25/22 1706 <Electronically signed by Nick Maguire MD> Cosigner Signature (if applicable): CC: Dr. Spenser Sanchez MD; Nick Maguire MD~ Signed [facility] Work Phone: 1(205) 264-351803-25-[address] Zarate [facility] July 25, 2022 2:57pm Note Date/Time July 25, 2022 2:5 5pm [facility] Medical Records Department [address] [place] [address] Consultation - Surgical 07/25/22 1444 MR#: [id number] Acct: [id number] Name: BETTE CLEMENTS Rep #:[id number] : 1945 77 From: Marcela Zarate MD PCP: Dr. Spenser Sanchez MD Status:A DM IN Location: [facility] [id number] Assessment & Plan Assessment/Plan (1) Complete small bowel obstruction: PLAN: Patient has passed small amount of flatus and has decreased abdominal pain, suspect that this is partial SBO I have reviewed CT scan - the contrast stops in the 3-4th part of duodenum, he is not on a PPI, will start this Continue NG tube decompression and IV hydration, hopefully no surgery will be required in this hospitalization HPI Consult Data Date of Consult: 07/25/22 HPI Narrative Reason for Consultation: asked to see patient by Dr. Robel Figueredo for bowel obstruction HPI Narrative: BETTE CLEMENTS, is a 77 M who presents with nausea/emesis and abdominla pain. CT scan findings from [facility] ED reveals bowel obstruction. However, patient has noted passing flatus, just prior to my encounter. He states that he had epigastric abdominal discomfort (which has been chronic) that kept him up at 2:00 am this morning. He does note trouble sleeping, however, he felt that his abdomen didn't feel right. He noted several bouts of nausea/emesis with this. He denies blood in his emesis; he is not on a PPI regularly. He states that initially in the ED, his pain was 8-9 out of 10 on a scale of 1- 10 with 10 being the worst. Presently he states that he has no pain, unless he moves or if pressure applied to abdomen. He has had bowel obstruction in the past - about 1-2 years ago which resolved with NG tube decompression and IV hydration - over two days. He denies chronic NSAIDs use; he has taken lomotil in the past, but has not in along time. He has a history of colorectal cancer, s/p resection in 2007. He had a colonoscopy [address] Laguna which was clear. He denies blood in his stools. He has had a remote right inguinal hernia repair, and a left inguinal hernia repair several years ago. He recently had AAA stent placed by Dr. Rodríguez. He notes a recent finding of elevated PSA, evaluation by Dr. Montaño is pending [facility] Medical History AAA (abdominal aortic aneurysm) Abdominal aortic aneurysm (AAA) greater than 5.5 cm in diameter in male Alcohol abuse Allergy to dog dander Anemia Arthritis Asthma Atherosclerotic heart disease of [place] coronary artery without angina pectoris Back pain BPH (benign prostatic hyperplasia) Bronchiectasis Cancer COPD (chronic obstructive pulmonary disease) Easy bruising Elevated PSA Epistaxis Essential (primary) hypertension Excessive bleeding Former smoker History of colon cancer History of ST elevation myocardial infarction (STEMI) (05/27/07) Hyperlipidemia Hypoxia Insomnia Iron deficiency Kidney stones Left inguinal hernia Low back pain Myocardial infarct 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) On home oxygen therapy Personal history of other malignant neoplasm of rectum, rectosigmoid junction, and anus Short bowel syndrome Sinus bradycardia 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 classification Tachycardia Therapeutic drug monitoring Wears glasses Home Medications fluticasone propionate 50 mcg/actuation nasal spray,suspension 1 spray intranasal BID congestion 05/09/20 [History Last Taken 07/24/22] garlic 2,000 mg capsule 2,000 mg PO DAILY 06/12/21 [History Last Taken 07/24/22] albuterol sulfate 90 mcg/actuation aerosol inhaler (Ventolin HFA) 2 puff inhalation Q4H PRN shortness of breath or wheezing #18 grams 07/02/21 [Rx Last Taken Unknown] formoterol fumarate 20 mcg/2 mL solution for nebulization (Perforomist) 2 ml inhalation Q12H copd #120 mL 12/25/21 [Rx Last Taken 07/23/22] clopidogrel 75 mg tablet 75 mg PO QHS blood thinner #90 tabs 01/08/22 [Rx Last Taken 07/24/22] budesonide 0.5 mg/2 mL suspension for nebulization 0.5 mg (2 mL) inhalation [id number] #180 mL 03/25/22 [Rx Last Taken 07/23/22] tamsulosin 0.4 mg capsule 0.4 mg PO QHS prostate #90 caps 04/15/22 [Rx Last Taken 07/24/22] verapamil 240 mg tablet,extended release 240 mg PO QHS heart #90 tabs 04/28/22 [Rx Last Taken 07/24/22] ascorbic acid (vitamin C) 1,000 mg capsule 1 g PO DAILY 04/30/22 [History Last Taken 07/24/22] cholecalciferol (vitamin D3) 250 mcg (10,000 unit) capsule 250 mcg PO DAILY 04/30/22 [History Last Taken 07/24/22] glutamine 500 mg tablet (L-Glutamine) 500 mg PO BID 04/30/22 [History Last Taken 07/24/22] glutathione 500 mg capsule 50 mg PO DAILY SUPPLEMENT 04/30/22 [History Last Taken 07/24/22] lactobacillus combination no.9 4 billion cell capsule (Adult 50 Plus Probiotic) 4,000 mmu cells PO DAILY 04/30/22 [History Last Taken 07/24/22] magnesium 250 mg tablet 250 mg PO DAILY 04/30/22 [History Last Taken 07/24/22] multivitamin 2 tab PO DAILY 04/30/22 [History Last Taken 07/24/22] turmeric 400 mg capsule 400 mg PO DAILY SUPPLEMENT 04/30/22 [History Last Taken 07/24/22] vitamin B complex 1 cap PO DAILY 04/30/22 [History Last Taken 07/24/22] mirtazapine 15 mg tablet 15 mg PO QHS #30 tabs 06/24/22 [Rx Last Taken 07/24/22] Allergy/AdvReac Type Severity Reaction Status Date / Time aspirin Allergy Shortness Verified 07/06/22 13:20 of breath adhesive AdvReac Rash Verified 07/06/22 13:20 amoxicillin trihydrate AdvReac Other Verified 07/06/22 13:20 [From Augmentin] atorvastatin calcium AdvReac leg cramps Verified 07/06/22 13:20 [From Lipitor] isopropyl alcohol AdvReac Rash Verified 07/06/22 13:20 metoprolol succinate AdvReac Rash Verified 07/06/22 13:20 [From Toprol XL] naproxen [From Naprosyn] AdvReac Shortness Verified 07/06/22 13:20 of breath paroxetine HCl [From Paxil] AdvReac Unknown Verified 07/06/22 13:20 potassium clavulanate AdvReac tingling Verified 07/06/22 13:20 [From Augmentin] all over propoxyphene HCl AdvReac Unknown Verified 07/06/22 13:20 [From Darvon] sertraline HCl [From Zoloft] AdvReac Unknown Verified 07/06/22 13:20 simvastatin [From Zocor] AdvReac Unknown Verified 07/06/22 13:20 tiotropium bromide AdvReac Other Verified 07/06/22 13:20 [From Spiriva with HandiHaler] Family History Father Heart disease Hypertension High cholesterol CVA (cerebral vascular accident) Mother Dementia Surgical History H/O hernia repair History of coronary artery stent placement (06/07/20) History of endovascular stent graft for abdominal aortic aneurysm (AAA) (06/25/20) History of esophagogastroduodenoscopy (EGD) History of left heart catheterization (05/24/20) History of left inguinal hernia repair (06/2021) history of right eye surgery History of right inguinal hernia repair History of tonsillectomy History of tonsillectomy and adenoidectomy Hx of appendectomy Hx of bilateral cataract extraction Hx of colonoscopy Hx of sinus surgery Hx of thumb surgery Hx of umbilical hernia repair Status post laparoscopic colectomy Social History Smoking Status: Former smoker pack-years: 67 second hand exposure: No alcohol intake: current alcohol intake frequency: other Alcohol type: beer details: Previous nightly drinker. Stopped 2021 substance use type: does not use caffeine: Yes Type: coffee Number of servings: 4 what type of physical activity do you participate in: other details: pulmonary rehab frequency: 3-4 times per week ROS Constitutional Constitutional: Denies fever(s) or weight gain Eyes Eyes: Denies loss of central vision ENT HEENT: Denies dysphagia or epistaxis Cardiovascular Cardiovascular: Denies chest pain at rest Respiratory/Chest Respiratory/Chest: Denies productive cough or shortness of breath at rest Gastrointestinal Gastrointestinal: Reports systems reviewed and no addt'l complaints, except as documented Genitourinary Genitourinary: Reports systems reviewed and no addt'l complaints, except as documented Musculoskeletal Musculoskeletal: Denies abnormal gait Integumentary Integumentary: Denies jaundice Neurologic Neurologic: Denies dizziness Physical Exam Const alert and oriented x3 General Appearance: cooperative HEENT normocephalic HEENT Narrative: has chronic post nasal drip Eyes conjunctivae normal Neck supple Resp normal respiratory effort Effort and Inspection: able to speak in complete sentences Cardio Rate: regular rate GI GI Narrative: soft, protuberant, tympanitic, tender to deep palpation (5 out of 10 pain) -no peritoneal signs Medical Records Data Attestation: I reviewed the patient's medical records Lab / Micro Data Attestation: I reviewed the patient's lab results. Result Diagrams: 07/25/22 07:22 07/25/22 07:22 Labs: Laboratory Results - last 24 hr 07/25/22 07:22: WBC 16.8 H, RBC 5.37, Hgb 15.1, Hct 46.9, MCV 87.3, MCH 28.1, MCHC 32.2, RDW Std Deviation 50.4 H, RDW Coeff of Kylee 15.8 H, Plt Count 435, MPV10.4, Immature Gran % (Auto) 0.600, Neut % (Auto) 89.5 H, Lymph % (Auto) 3.7 L, Clare % (Auto) 4.8, Eos % (Auto) 0.8, Baso % (Auto) 0.6, Absolute Neuts (auto) 15.1 H, Absolute Lymphs (auto) 0.62 L, Nucleated RBC % 0 07/25/22 07:22: Sodium 139, Potassium 4.6, Chloride 106, Carbon Dioxide 27.0, Anion Gap 6, BUN 30 H, Creatinine 1.79 H, Estim Creat Clear Calc 30.36, Est GFR (MDRD) Af Amer 47 L, Est GFR (MDRD) Non-Af 39 L, BUN/Creatinine Ratio 16.8, Glucose 151 H, Calcium 10.5 H, Total Bilirubin 0.70, AST 28, ALT 28, Alkaline Phosphatase 97, Total Protein 7.5, Albumin 4.1, Globulin 3.4, Albumin/Globulin Ratio 1.2, Lipase 184 07/25/22 09:50: Urine Color Yellow, Urine Clarity Clear, Urine pH 6.5, Ur Specific [place] 1.015, Urine Protein 30 H, Urine Glucose (UA) Normal, Urine Ketones Negative, Urine Occult Blood Negative, Urine Nitrite Negative, Urine Bilirubin Negative, Urine Urobilinogen Normal, Ur Leukocyte Esterase 25 H, UrineRBC 0 SEEN, Urine WBC 0-5 SEEN, Ur Squamous Epith Cells 0 SEEN, Urine Bacteria 0SEEN, Urine Mucus 0 SEEN Radiology Impression Abdomen/Pelvis CT 07/25/22 07:19 IMPRESSION: Small bowel obstruction. Stable infrarenal abdominal aortic aneurysm measuring up to 5.5 cm in the transverse dimension. Enlarged prostate gland. Colonic diverticulosis. Moderate amount of stool throughout the colon. Emphysema. Atherosclerosis. Electronically Signed: Nuha Woodson MD at 10:13 EDT , KUB X-Ray 07/25/22 12:00 IMPRESSION: Enteric tube terminating within the expected region of the gastric fundus. Small bowel obstruction. Electronically Signed: Nuha Woodson MD at 12:18 EDT , 07/25/22 1457 <Electronically signed by Marcela Zarate MD> Cosigner Signature (if applicable): CC: Dr. Spenser Sanchez MD~ Signed [facility] Work Phone: 1(930) 825-493803-10-2023 History of Present illness Narrative* Aren Mcarthur PA-C - 07/10/2022 3:10 PM EST Images from the original note were not included. [facility] [place] [facility] NEW PATIENT CLINIC NOTE SERVICE DATE: 07/10/2022 SERVICE TIME: 3:11 PM NAME: Bette Clements CHIEF COMPLAINT: Elevated PSA HISTORY OF PRESENT ILLNESS: Bette Clements is a 77 year old male with PMH including CAD, HTN and COPD presenting for New PatientConsult for severely elevated PSA of 158.0 The [...] repeat a Total PSA as part of thetest LUTS: None Other symptoms: LABS: Testosterone (ng/dL) [...] (FLONASE) 50 mcg/actuation nasal spray Use 1 W[place] in each nostril once daily. verapamil SR [...] needed. (Patient not taking: Reported on 07/10/2022) Lgnvckvxlzz-Aijogfipk-Fsg C-Mn (GLUCOSAMINE CHONDROITIN MAXSTR) 500-400 mg cap Take 2 capsules by mouth once daily. (Patient not taking: Reported on 07/10/2022) piroxicam (FELDENE) 10 mg capsule Take 1 capsule by mouth once daily. (Patient not taking: Reportedon 07/10/2022) nitroglycerin sublingual (NITROSTAT) 0.4 mg SUBLINGUAL SL tablet Dissolve 1 tablet under the tongueas needed. (Patient not taking: Reported on 05/09/2019 [...] CABG X4 Diabetes Father Heart Paternal Grandfather MD'S Diabetes Paternal Grandmother Emphysema Maternal Grandfather Heart [...] 138/84, pulse 99, height 170.2 cm (5' 7), weight 68 kg (150 lb), SpO2 97 [...] medically appropriate examination, counseling and educating the pat ient/family/caregiver, ordering medications, tests, or procedures, and care coordination. NATALY Farley, MT, CECILIA * Charla Perez - 07/10/2022 2:20 PM EST PSA,Total - Annual Screen on 07-06-2022 PSA,TOT SCREEN 158.00 ng/mL High 0.00-4.[address] [facility] Comment on above: Result Comment: This test was performed using the TPSAassay method for the T-System chemistry system. Values obtained with different assay methods cannot be used interchangably. When changing PSA assays in the course of monitoring a patient, additional sequential testing should be carried out to confirm baseline values. Performed By: #### L501.9910, L500.4050, L100.0100 ####[facility] [id number] [place], [place], [id number] documented in this encounterAs[facility] Evaluation note* Diagnosis Onset Date Resolution Status Insomnia chronic Carotid stenosis, left acute History of left inguinal hernia repair acute History of endovascular sten t graft for abdominal aortic aneurysm (AAA) June 25, 2020 resolved Asthma chronic 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 Insomnia chronic Atherosclerotic heart diseas e of [place] coronary artery without angina pectoris chronic Essential (primary) hypertension chronic Hyperlipidemia chronic History of endovascular sten t graft for abdominal aortic aneurysm (AAA) June 25, 2020 resolved BPH (benign prostatic hyperplasia) chronic Essential (primary) hypertension chronic Insomnia chronic Complete small bowel obstruction acute [facility] Work Phone: 1(775) 506-151702-23-2021 Evaluation note* Diagnosis Onset Date Resolution Status Insomnia chronic Carotid stenosis, left acute History of left inguinal hernia repair acute History of endovascular sten t graft for abdominal aortic aneurysm (AAA) June 25, 2020 resolved Asthma chronic 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 Insomnia chronic Atherosclerotic heart diseas e of [place] coronary artery without angina pectoris chronic Essential (primary) hypertension chronic Hyperlipidemia chronic History of endovascular sten t graft for abdominal aortic aneurysm (AAA) June 25, 2020 resolved BPH (benign prostatic hyperplasia) chronic Essential (primary) hypertension chronic Insomnia chronic Partial bowel obstruction ac [place] AAA (abdominal aortic aneurysm) chronic Asthma chronic BPH (benign prostatic hyperplasia) chronic 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 Work Phone: 1(605) 284-995202-23-2021 Evaluation note* Diagnosis Onset Date Resolution Status Carotid stenosis, left acute History of left inguinal hernia repair acute History of endovascular sten t graft for abdominal aortic aneurysm (AAA) June 25, 2020 resolved 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 Atherosclerotic heart diseas e of [place] coronary artery without angina pectoris chronic Essential (primary) hypertension chronic Hyperlipidemia chronic History of endovascular sten t graft for abdominal aortic aneurysm (AAA) June 25, 2020 resolved Essential (primary) hypertension chronic [facility] Work Phone: 1(471) 879-774912-15-2019 Consult note Author Amrita Novak [facility] Note Date/Time July 18, 2024 3:0 2pm [facility] Medical Records Department [address] [place] [address] Anesthesia Postop Eval I 07/18/24 1459 MR#: [id number] Acct: [id number] Name: BETTE CLEMENTS Rep #:[id number] : 1945 79 From: Amrita Novak CRNA PCP: CODY Burk Status[place] [facility] [place] Race: C Location: [place] [address] Anesthesia: Postop Eval I Current Vital Signs Temperature: 97.4 F Pulse Rate: 15 Blood Pressure: 124/74 Respiratory Rate: 14 Pulse Ox: 98 Oxygen Delivery Method: Room Air Assessment Airway patent: Yes Spontaneous unlabored respirations: Yes Mental status: Awake nausea: No Vomiting: No Anesthesia Complication: No Fluid Hydration Crystalloid volume administer (ml): 10 Total IV fluid infused: 10 Progress Note Anesthesia document: Postop Eval 1 completed: Yes 07/18/24 1502 <Electronically signed by Amrita MILLAN NA> Date _ Amrita Novak CRNA Cosigner Signature: Date CC: ~ Signed [facility] Work Phone: [phone]) [phone] History of Past illness Narrative* Problem Noted Date Resolved Date Skin lesion 09/09/2015 03/03/2019 Other affections of shoulder region, not elsewhere classified 03/05/2009 06/15/2011 Renal failure, unspecified 12/06/200706/15 Abdominal pain, right lower quadrant 08/09/2007 12/10/2009 Unspecified hypertrophic and atrophic condition of skin 02/27/2006 06/12/2010 Reflux esophagitis 06/12/2010 documented as of this encounter (statuses as of 07/22/2022) [facility] note Author Allison Mckeon [facility] November 16, 2022 11:37am Note Date/Time November 16, 2022 11:3 7am [facility] Medical Records Department [address] [place] [address] Counseling Note - Pharmacy 11/16/22 1136 MR#: [id number] Acct: [id number] Name: BETTE CLEMENTS Rep #:[id number] : 1945 77 From: Allison Mckeon PCP: Dr. Spenser Sanchez MD Status:A DM IN Location: [place] [id number] 1 Pharmacy [place] Med Reconciliation Pharmacy Service has performed discharge medication reconciliation for this patient. extractor operator, Niraj, attempted to herb counselor. However, patient said he has had nitroglycerin before and is familiar with the medication. Patient felt he did not need counseling. Medications reviewed. The patient's discharge medication list was reviewed for discrepancies and discrepancies were resolved. Medications at Discharge Home Medications fluticasone propionate 50 mcg/actuation nasal spray,suspension 1 spray intranasal BID congestion 05/09/20 albuterol sulfate 90 mcg/actuation aerosol inhaler (Ventolin HFA) 2 puff inhalation Q4H PRN shortness of breath or wheezing #18 grams 07/02/21 formoterol fumarate 20 mcg/2 mL solution for nebulization (Perforomist) 2 ml inhalation Q12H copd #120 mL 12/25/21 clopidogrel 75 mg tablet 75 mg PO QHS blood thinner #90 tabs 01/08/22 budesonide 0.5 mg/2 mL suspension for nebulization 0.5 mg (2 mL) inhalation [id number] #180 mL 03/25/22 verapamil 240 mg tablet,extended release 240 mg PO QHS heart #90 tabs 04/28/22 multivitamin 2 tab PO DAILY 04/30/22 mirtazapine 15 mg tablet 15 mg PO QHS #90 tabs 08/17/22 mirtazapine 7.5 mg tablet 7.5 mg PO QHS #90 tabs 08/17/22 tamsulosin 0.4 mg capsule 0.4 mg PO QHS prostate #90 caps 10/13/22 bicalutamide 50 mg tablet 50 mg PO DAILY cancer 11/14/22 calcium 325 mg-vit D3 12.5 mcg-zinc 2.75 yj-bxarlr-nxtshjdwx tablet (Citracal-Y6Wbidobf Plus) 2 tab PO BID bone deficiency 11/14/22 nitroglycerin 0.4 mg sublingual tablet 0.4 mg sublingual Q5M PRN Cardiac/Chest Pain #20 tabs 11/16/22 11/16/22 1137 <Electronically signed by Allison Mckeon> Date _ Allison Mckeon Cosigner Signature (if applicable): Date CC: ~ Signed [facility] Work Phone: Discharqx summary Author Dr. Saldivar [facility] July 26, 2022 12:53pm Note Date/Time July 26, 2022 12: 52pm [facility] Medical Records Department [address] [place] [address] Instructions for Home/Discharge Instructions 07/26/22 1251 MR#: [id number] Acct: [id number] Name: BETTE CLEMENTS Rep #:[id number] : 1945 77 From: Tiki Saldivar MD PCP: Dr. Spenser Sanchez MD Status:A DM IN Discharge Instructions Diet Discharge Diet: - (see below) Follow Up Care Test Results: Test results from this visit will be discussed in further detail at your follow- up appointment, if applicable. Discharge Plan Admission Admit Date/Time: 07/25/22 12:07 Primary Reason for Your Visit: Part small bowel obstruction Attending Provider: Tiki Saldivar Primary Care Provider: Spenser Sanchez Consulting Providers: Robel Figueredo Instructions Patient Instructions: Bowel Obstruction Additional Instructions / Restrictions: Follow up with your PCP Advance diet slowly over the next 2-3 days Discharge Orders/Prescriptions Prescriptions: Continued fluticasone propionate 50 mcg/actuation spray,suspension 1 spray INTRANASAL BID Rx Instructions: administer into each nostril multivitamin Tablet 2 tab PO DAILY magnesium 250 mg tablet 250 mg PO DAILY L-Glutamine 500 mg tablet 500 mg PO BID vitamin B complex Capsule 1 cap PO DAILY cholecalciferol (vitamin D3) 250 mcg (10,000 unit) capsule 250 mcg PO DAILY ascorbic acid (vitamin C) 1,000 mg capsule 1 g PO DAILY glutathione 500 mg capsule 50 mg PO DAILY Adult 50 Plus Probiotic 4 billion cell capsule 4,000 mmu cells PO DAILY Rx Instructions: administer with a meal turmeric 400 mg capsule 400 mg PO DAILY garlic 2,000 mg Capsule 2,000 mg PO DAILY albuterol sulfate [Ventolin HFA] 90 mcg/actuation HFA aerosol inhaler 2 puff inhalation Q4H PRN (Reason: shortness of breath or wheezing) Qty: 18 6RF formoterol fumarate [Perforomist] 20 mcg/2 mL solution for nebulization 2 ml inhalation Q12H Qty: 120 11RF clopidogrel 75 mg tablet 75 mg PO QHS Qty: 90 3RF Label Comments: STOPPING 3 DAYS PRIOR budesonide 0.5 mg/2 mL suspension for nebulization 0.5 mg INHALATION Q12H Qty: 180 11RF tamsulosin 0.4 mg capsule 0.4 mg PO QHS Qty: 90 1RF verapamil 240 mg tablet extended release 240 mg PO QHS Qty: 90 3RF mirtazapine 15 mg tablet 15 mg PO QHS Qty: 30 2RF Referrals / Follow Up: Spenser Sanchez MD [Primary Care Provider] - Within 1 Week Disposition Disposition (needs filled in before D/C Order can be placed): Home, Self Care 07/26/22 3986<Electronically signed by Tiki Saldivar MD>Tiki Saldivar MD CC: Dr. Spenser Sanchez MD; Dr. Robel Figueredo MD ~ Signed [facility] Work Phone: Discharge summary Author Heri Ewing [facility] November 16, 2022 11:00am Note Date/Time November 16, 2022 10:[address] [facility] Medical Records Department [address] [place] [address] Instructions for Home/Discharge Instructions 11/16/22 1055 MR#: [id number] Acct: [id number] Name: BETTE CLEMENTS Rep #:[id number] : 1945 77 From: Heri Ewing DO PCP: Dr. Spenser Sanchez MD Status:A DM IN Discharge Instructions Diet Discharge Diet: Low fat / Low cholesterol Dressing / Incision Call your doctor if you observe: Shortness of breath and Chest pain Follow Up Care Test Results: Test results from this visit will be discussed in further detail at your follow- up appointment, if applicable. Discharge Plan Admission Admit Date/Time: 11/14/22 05:13 Primary Reason for Your Visit: Myocardial infarction. Attending Provider: Heri Ewing Primary Care Provider: Spenser Sanchez Consulting Providers: Delma Gonsalves; Bethel Gallegos; Good Morse Instructions Additional Instructions / Restrictions: You had a mild myocardial infarction (heart attack). Please follow up with cardiology this week. Return if you have recurrent chest pain. Discharge Orders/Prescriptions Prescriptions: New nitroglycerin 0.4 mg Tablet, Sublingual 0.4 mg sublingual Q5M PRN (Reason: Cardiac/Chest Pain) Qty: 20 0RF Continued fluticasone propionate 50 mcg/actuation spray,suspension 1 spray INTRANASAL BID Rx Instructions: administer into each nostril multivitamin Tablet 2 tab PO DAILY vlzinek-B3-gtsw-copper-felix [Citracal-D3 Maximum Plus] 325 mg-12.5 mcg -2.75mg tablet 2 tab PO BID bicalutamide 50 mg tablet 50 mg PO DAILY Patient Comments: take 1 tablet by mouth once daily albuterol sulfate [Ventolin HFA] 90 mcg/actuation HFA aerosol inhaler 2 puff inhalation Q4H PRN (Reason: shortness of breath or wheezing) Qty: 18 6RF formoterol fumarate [Perforomist] 20 mcg/2 mL solution for nebulization 2 ml inhalation Q12H Qty: 120 11RF clopidogrel 75 mg tablet 75 mg PO QHS Qty: 90 3RF Patient Comments: STOPPING 3 DAYS PRIOR budesonide 0.5 mg/2 mL suspension for nebulization 0.5 mg INHALATION Q12H Qty: 180 11RF verapamil 240 mg tablet extended release 240 mg PO QHS Qty: 90 3RF mirtazapine 7.5 mg tablet 7.5 mg PO QHS Qty: 90 3RF Rx Instructions: Take a 15 mg tablet for total nightly dose of 22.5mg QHS mirtazapine 15 mg tablet 15 mg PO QHS Qty: 90 3RF tamsulosin 0.4 mg capsule 0.4 mg PO QHS Qty: 90 1RF Referrals / Follow Up: Spenser Sanchez MD [Primary Care Provider] - Within 2 Weeks Sara Fabian PA [Med Staff - [facility] Prof] - 11/20/22 8:30 am Disposition Disposition (needs filled in before D/C Order can be placed): Home, Self Care 11/16/22 1100<Electronically signed by Heri Ewing DO>Heri Ewing DO CC: Dr. Demla Gonsalves MD; Dr. Spenser Sanchez MD; Dr. Bethel Gallegos MD; Dr.Natthavat Mini MD ~ Signed [facility] Work Phone: Discharge summary [facility] November 16, 2022 11:01am Note Date/Time November 16, 2022 11:[address] [facility] Medical Records Department [address] [place] [address] Discharge Summary 11/16/22 1100 MR#: [id number] Acct: [id number] Name: BETTE CLEMENTS Rep #:[id number] : 1945 77 From: Heri Ewing DO PCP: Dr. Spenser Sanchez MD Status:A DM IN Location: [place] [id number]- Providers Date of Admission: 11/14/22 Primary Care Physician: Dr. Spenser Sanchez MD Consultations 11/14/22 07:13 Consult: Cardiology Routine Consulting Provider: Bethel Gallegos Reason for Consult: Chest Pain, NSTEMI EMERGENT Consult: No Notified: Yes Date Notified: 11/14/22 Time Notified: 05:15 Method of Notification: ED Physician Initiated 11/14/22 10:06 Consult: Nephrology Routine Consulting Provider: Good Morse Reason for Consult: DOMENICA EMERGENT Consult: No Notified: Yes Date Notified: 11/14/22 Time Notified: 10:07 Method of Notification: Answering Service Reason For Visit: CHEST PAIN, NSTEMI Diagnosis Discharge Diagnosis (1) NSTEMI, initial episode of care: Status: Acute Code(s): I21.4 - Non-ST elevation (NSTEMI) myocardial infarction Plan: Troponins 456 Echo pending Cards consult TMT: * No ASA given allergy (SOB), no statin given h/o cramps * clopidogrel continued. * DW Dr. Yin, due to illness, he would be unable to perform LHC today, but likely tomorrow. Also, he recommended dc heparin gtt. DW patient. Recommended he stay to have LHC 11/17 rather than go home and have it as outpt. He expressed understanding,but will be going home (he cares for his demented ) and follow up as outpt. He understands the risks and advised to return if feeling worse. (2) Hypokalemia: Status: Acute Code(s): E87.6 - Hypokalemia Plan: replaced today monitor Plan Chronic conditions: * Chronic Kidney Disease Stage III, unclear subtype: Admission BUN/Cr 23/1.78, baseline renal function primarily 1.4-1.8, repeat BMP in AM. * CAD: Status post prior PCI, will continue aspirin, not on beta-kimberley therapy as on verapamil, not on statin secondary to allergy, not on JU inhibitor/ARB per most current list but will clarify. * History AAA: Status post prior endovascular repair and graft-stent, continue plavix, hypertensive regimen, not on statin therapy secondary to intolerance. * Hypertension: Continue home regimen including verapamil, PRN hydralazine. * Hyperlipidemia: Noted statin allergy, FLP in AM. 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 * Former tobacco use: Encourage continued tobacco cessation. * Chronic COPD/asthma with chronic hypoxic respiratory failure: We will continue patient home 3 L nasal cannula supplementation nightly, will maintain on ATC budesonide therapy, PRN albuterol, HOB, IS parameters. * History of bowel obstruction: Status post partial colectomy, resolved. * BPH: We will continue patient home Flomax home regimen. * Anxiety and depression: We will continue patient home mirtazapine regimen, clarifying dose. DVT prophylaxis: Continue heparin drip. CODE status: DNRCCA no intubation Medications at Discharge Home Medications fluticasone propionate 50 mcg/actuation nasal spray,suspension 1 spray intranasal BID congestion 05/09/20 albuterol sulfate 90 mcg/actuation aerosol inhaler (Ventolin HFA) 2 puff inhalation Q4H PRN shortness of breath or wheezing #18 grams 07/02/21 formoterol fumarate 20 mcg/2 mL solution for nebulization (Perforomist) 2 ml inhalation Q12H copd #120 mL 12/25/21 clopidogrel 75 mg tablet 75 mg PO QHS blood thinner #90 tabs 01/08/22 budesonide 0.5 mg/2 mL suspension for nebulization 0.5 mg (2 mL) inhalation [id number] #180 mL 03/25/22 verapamil 240 mg tablet,extended release 240 mg PO QHS heart #90 tabs 04/28/22 multivitamin 2 tab PO DAILY 04/30/22 mirtazapine 15 mg tablet 15 mg PO QHS #90 tabs 08/17/22 mirtazapine 7.5 mg tablet 7.5 mg PO QHS #90 tabs 08/17/22 tamsulosin 0.4 mg capsule 0.4 mg PO QHS prostate #90 caps 10/13/22 bicalutamide 50 mg tablet 50 mg PO DAILY cancer 11/14/22 calcium 325 mg-vit D3 12.5 mcg-zinc 2.75 pb-lraeer-ezkxvsfek tablet (Citracal-V2Idmnxyv Plus) 2 tab PO BID bone deficiency 11/14/22 nitroglycerin 0.4 mg sublingual tablet 0.4 mg sublingual Q5M PRN Cardiac/Chest Pain #20 tabs 11/16/22 Hospital Course Operations None Procedures 2-D Echocardiogram Summary of Care Provided Minutes Spent on Discharge: 32 Weight / BMI Weight Weight: 66 kg Body Mass Index (BMI) 21.5 ABG / Lab / Microbiology Data 11/15/22 06:40 11/16/22 03:00 Laboratory: Laboratory Results - last 24 hr 11/15/22 14:30: APTT 39.0 H 11/15/22 17:35: Urine Color Yellow, Urine Clarity Clear, Urine pH 6.5, Ur Specific [place] 1.010, Urine Protein Negative, Urine Glucose (UA) Normal, Urine Ketones Negative, Urine Occult Blood Negative, Urine Nitrite Negative, Urine Bilirubin Negative, Urine Urobilinogen Normal, Ur Leukocyte Esterase Negative, Urine RBC 0 SEEN, Urine WBC 0 SEEN, Ur Squamous Epith Cells 0 SEEN, Urine Bacteria 0 SEEN, Urine Mucus 0 SEEN 11/15/22 21:30: APTT 66.1 H 11/16/22 03:00: APTT 77.4 H, Sodium 140, Potassium 3.4 L, Chloride 112 H, CarbonDioxide 23.0, Anion Gap 5, BUN 20 H, Creatinine 1.47 H, Estim Creat Clear Calc 38.37, Est GFR (MDRD) Af Amer 60, Est GFR (MDRD) Non-Af 49 L, BUN/Creatinine Ratio 13.6, Glucose 110 H, Calcium 9.5, Phosphorus 3.1, Albumin 3.2 11/16/22 09:30: APTT 35.8 D/C Instructions Discharge Diet: Low fat / Low cholesterol Call your doctor if you observe: Shortness of breath and Chest pain Meaningful Use Info Meaningful Use Diagnoses (Choose all that apply): AMI AMI/Post PCI/Angioplasty Aspirin given w/in 24hrs of arrival?: No Reason no aspirin w/in 24hrs of arrival?: Allergy ASA at discharge?: No Reason ASA not ordered:: Allergy Antiplatelet Therapy at Discharge:: Yes Statins at discharge?: No Reason statins not ordered:: Allergy Ju/ARB at discharge?: No Reason Ju/ARB not ordered:: Worsening renal dysfunctn Beta Kimberley at discharge?: No Reason Beta Kimberley not ordered:: Allergy Done w/ Acute MD measure.: Yes Documented LVEF (%): 45 Discharge Plan Admission Admit Date/Time: 11/14/22 05:13 Primary Reason for Your Visit: Myocardial infarction. Attending Provider: Heri Ewing Primary Care Provider: Spenser Sanchez Consulting Providers: Delma Gonsalves; Bethel Gallegos; Good Morse Instructions Additional Instructions / Restrictions: You had a mild myocardial infarction (heart attack). Please follow up with cardiology this week. Return if you have recurrent chest pain. Discharge Orders/Prescriptions Prescriptions: New nitroglycerin 0.4 mg Tablet, Sublingual 0.4 mg sublingual Q5M PRN (Reason: Cardiac/Chest Pain) Qty: 20 0RF Continued fluticasone propionate 50 mcg/actuation spray,suspension 1 spray INTRANASAL BID Rx Instructions: administer into each nostril multivitamin Tablet 2 tab PO DAILY [id number]-[id number]-copper-felix [Citracal-D3 Maximum Plus] 325 mg-12.5 mcg -2.75mg tablet 2 tab PO BID bicalutamide 50 mg tablet 50 mg PO DAILY Patient Comments: take 1 tablet by mouth once daily albuterol sulfate [Ventolin HFA] 90 mcg/actuation HFA aerosol inhaler 2 puff inhalation Q4H PRN (Reason: shortness of breath or wheezing) Qty: 18 6RF formoterol fumarate [Perforomist] 20 mcg/2 mL solution for nebulization 2 ml inhalation Q12H Qty: 120 11RF clopidogrel 75 mg tablet 75 mg PO QHS Qty: 90 3RF Patient Comments: STOPPING 3 DAYS PRIOR budesonide 0.5 mg/2 mL suspension for nebulization 0.5 mg INHALATION Q12H Qty: 180 11RF verapamil 240 mg tablet extended release 240 mg PO QHS Qty: 90 3RF mirtazapine 7.5 mg tablet 7.5 mg PO QHS Qty: 90 3RF Rx Instructions: Take a 15 mg tablet for total nightly dose of 22.5mg QHS mirtazapine 15 mg tablet 15 mg PO QHS Qty: 90 3RF tamsulosin 0.4 mg capsule 0.4 mg PO QHS Qty: 90 1RF Referrals / Follow Up: Spenser Sanchez MD [Primary Care Provider] - Within 2 Weeks Sara Fabian PA [Med Staff - [facility] Practice Prof] - 11/20/22 8:30 am Disposition Disposition (needs filled in before D/C Order can be placed): Home, Self Care Charges/Coding Visit Charges Inpatient E&M: 65428 Disch Hosp >30min 11/16/22 1101 <Electronically signed by Heri Ewing DO> Cosigner Signature (if applicable): CC: Dr. Spenser Sanchez MD; Dr. Heri Ewing DO~ Signed [facility] Work Phone: Discharge summary Author Rhys Fontana [facility] Note Date/Time July 28, 2024 2:1 2pm [facility] Medical Records Department [address] [place] [address] Discharge Summary 07/28/24 1359 MR#: [id number] Acct: [id number] Name: BETTE CLEMETNS Rep #:[id number] : 1945 79 From: Rhys fallon MD PCP: CODY Burk Status:ADM KISHORE Location: [place] [address] Providers Date of Admission: 07/27/24 Primary Care Physician: CODY Burk Reason For Visit: LACTIC ACID ELEVATION AND DEHYDRATION Diagnosis Discharge Diagnosis (1) Elevated lactic acid level: Status: Acute Code(s): R79.89 - Other specified abnormal findings of blood chemistry (2) Dehydration: Status: Acute Code(s): E86.0 - Dehydration Medications at Discharge Home Medications nitroglycerin 0.4 mg sublingual tablet 0.4 mg sublingual Q5M PRN Cardiac/Chest Pain #20 tabs 11/16/22 Disability Placard #1 ea 02/11/23 formoterol fumarate 20 mcg/2 mL solution for nebulization (Perforomist) 2 ml inhalation Q12H copd #120 mL 05/06/23 isosorbide mononitrate 30 mg tablet,extended release 24 hr 30 mg PO DAILY heart #30 TABLETS 12/10/23 furosemide 40 mg tablet 40 mg PO DAILY PRN edema #30 tabs 12/13/23 clopidogrel 75 mg tablet 75 mg PO DAILY anti platelet #90 tabs 02/10/24 verapamil 240 mg tablet,extended release 240 mg PO QHS heart #90 tabs 05/05/24 tamsulosin 0.4 mg capsule 0.4 mg PO BID prostate #180 caps 05/22/24 budesonide 0.5 mg/2 mL suspension for nebulization 0.5 mg (2 mL) inhalation [id number] #180 mL 06/14/24 Hospital Course Operations None Procedures None Summary of Care Provided Minutes Spent on Discharge: 38 Hospital Course: Per HPI: BETTE CLEMENTS, is a 79M with history of coronary artery disease status post PCI on Plavix, prostate cancer status post radiation and current hormonal therapy with Dr. Montaño, previous colon cancer status post colon resection, previous GI bleed presented to [facility] ED 07/27/2024 for evaluation of repeat GI bleed. He recently had colonoscopy by Dr. Gonzáles and patient states he was told his colon was burned from radiation. Since his colon resection years ago he has been having diarrhea and notes that yesterday his diarrhea increased and he noted a large blood clot in his depends today with2 further bowel movements that have blood in them. Patient has also been drinking alcohol daily to help him sleep and has been doing so for months. States he woke up at 6 AM today and took 6 shots of whiskey to help him go back to sleep. In the ED patient with heart rate of 91 and blood pressure 141/82, respiratory rate 17 with pulse ox of 93%. Patient's hemoglobin 13.5, yesterday was 14, presently at baseline but is FOBT positive. Additionally creatinine 1.51 which seems to be at baseline and potassium of 3.2. Lactic acid also elevated at 4.1 without trend of 4.8. Patient had CT of the abdomen and pelvis in the ED which showed no acute hemorrhage identified but wall thickening at theGE junction and gastric cardia with small subserosal fluid collection posteriorly, Justyna-Cross tear and ulceration or neoplasm are considerations. Patient also with mild diffuse wall thickening of the rectosigmoid colon, possibly due to infectious or inflammatory proctocolitis. GI contacted and it was felt that patient's dehydration and diarrhea were irritating his known lesions and that patient is stable and no acute inpatient management needed froma GI standpoint, vitally stable, hemoglobin stable. It was recommended the patient follow-up outpatient. Hospitalist contacted for admission for patient'sdehydration and elevated lactic acid. Patient evaluated at bedside and he does report he has frequent diarrhea and has been having blood in his stool since before March, he has very poor p.o. intake both food and liquids but is continued to take his Lasix as prescribed for leg swelling, usually takes about 2 shots at bedtime but over this past week drank about 1/5, denies any day drinking, denies any history of alcohol withdraw or adverse symptoms if he does not drink. Reports he chronically has some abdominal tenderness centrally and this is unchanged, no nausea or vomiting, no urinary symptoms. Hospital Course: 1. Bright red blood per rectum status post radiation and partial colonic resection as well as history of internal and external hemorrhoids?79-year-old male presented to the hospital with recurrent bright red blood per rectum. He was concerned given the amount however he did not develop any significant anemia, his hemoglobin dropped after liter fluid to 12.6, and on recheck on the day of discharge it was 13.1. The admitting physician had discussed the case with GI who did not feel that the patient warranted any significant inpatient evaluation. I discussed the case with the patient as well as his son and expressed the possibility of discharge today they both expressed understanding of the risks and benefits of going home and are okay with going home if he is stable which she is. I was able to get him an appointment with GI on 08/02/2024 and recommend outpatient follow-up with his PCP to monitor his hemoglobin. He did just have a colonoscopy on 07/18/2024 with 2 segmented polyps as well as multiple nonbleeding colonic AVMs. 2. Alcohol abuse?his recently and since that time he has been drinking fairly heavily however the son says that he has gotten rid of all the alcohol in the house, CIWA scores here in the hospital been 0. I continue to encourage alcohol cessation. 3. CKD 3, COPD, CAD status post stent, prostate cancer s/p radiation currently on hormonal therapy, chronic BPH with obstruction, history of colon cancer are chronic medical conditions which complicate his care. His home medications werecontinued where appropriate Physical Exam Narrative General: Alert, Oriented x3, Cooperative, No apparent distress HEENT: Atraumatic, PERRLA, EOMI, Normocephalic Oral: Moist Mucosa Neck: Supple, No JVD Lungs: Diminished, Normal air movement, No rhonchi, No wheeze, No rales Cardiovascular: Regular rate, Regular Rhythm, Normal S1, Normal S2, No murmurs Abdomen: Soft, Non Tender, Non-Distended, No Hepato-splenomegaly Extremities: No edema, Capillary Refill Less than 3 Seconds Skin: No rashes, No breakdown Musculoskeletal: No Tenderness to Palpation of Joints or Extremities Neurological: No focal neurological deficits, Motor Exam 5/5 strength throughout, Sensory exam intact to light touch and pain Psych/Mental Status: Normal Affect, Appropriate Weight / BMI Weight Weight: 133 lb 2.547 oz Body Mass Index (BMI) 20.8 ABG / Lab / Microbiology Data 07/28/24 12:20 07/28/24 06:18 Laboratory: Laboratory Results - last 24 hr 07/27/24 13:28: Lactic Acid 4.8 H* 07/27/24 17:25: Sodium 143, Potassium 3.8, Chloride 107, Carbon Dioxide 17.7 L, Anion Gap 18 H, BUN 3 L, Creatinine 1.31 H, Estim Creat Clear Calc 38.36 L, Est GFR (MDRD) Non-Af 55 L, BUN/Creatinine Ratio 2.2 L, Glucose 54 L, Calcium 8.5 07/27/24 19:05: Lactic Acid 1.9 07/27/24 22:02: POC Glucose 139 H 07/28/24 06:06: POC Glucose 94 07/28/24 06:18: WBC 7.7, RBC 3.86 L, Hgb 12.6 L, Hct 35.9 L, MCV 93.0, MCH 32.6 H, MCHC 35.1, RDW Std Deviation 42.3, RDW Coeff of Kylee 12.4, Plt Count 323, MPV 9.9, Immature Gran % (Auto) 0.400, Neut % (Auto) 70.4 H, Lymph % (Auto) 12.7 L, Clare % (Auto) 8.7, Eos % (Auto) 6.6 H, Baso % (Auto) 1.2 H, Absolute Neuts (auto) 5.4, Absolute Lymphs (auto) 0.98, Nucleated RBC % 0, PT 14.2, INR 1.1, Sodium 141, Potassium 3.5, Chloride 106, Carbon Dioxide 23.3, Anion Gap 12, BUN 19, Creatinine 1.19, Estim Creat Clear Calc 42.30 L, Est GFR (MDRD) Non-Af 62, BUN/Creatinine Ratio 15.5, Glucose 89, Calcium 9.3, Magnesium 1.7, Total Bilirubin 0.73, AST 28, ALT 15, Alkaline Phosphatase 65, Total Protein 5.7 L, Albumin 3.9, Globulin 1.8 L, Albumin/Globulin Ratio 2.2, TSH 2.440 07/28/24 12:07: POC Glucose 129 H 07/28/24 12:20: Hgb 13.1, Hct 37.9 L Microbiology: Microbiology 07/27/24 10:12 Stool Stool Occult Blood (WINTER) - Final Occult Blood Positive ABG: ABG 07/27/24 07/27/24 17:36 20:23 Specimen Type STEPHANIE ART Sample Site vein L Radial pH 7.45 Bicarbonate Actual 22.4 Total CO2 23 Base Excess -2 O2 Saturation 94 L O2 % 21.0 ABG pCO2 32.4 L ABG pO2 68 L Royer Test Positive VBG pH 7.50 H VBG pO2 31 VBG HCO3 22 VBG Total CO2 23 VBG O2 Sat (Calc) 67 VBG Base Excess -2 L POC Mix VBG pCO2 Pt Tmp 28.1 L O2 Delivery Device Not entered Room Air Vent Mode Not entered Clinical Comments D/C Instructions Discharge Diet: Low fat / Low cholesterol Call your doctor if you observe: Fever of 101 or Higher, Shortness of breath, Dizziness, Fainting spells, Swelling in the ankles, Chest pain and Increased palpitations (irregular heartbeat) DC O2, CPAP, BIPAP Needs Home O2 Discharge instructions: No Meaningful Use Info Meaningful Use Meaningful Use Diagnoses (Choose all that apply): None applicable Ischemic Stroke Statin Dosing Therapy Reference: STATIN DOSE THERAPY REFERENCE: * Patients > 75 years receive moderate or high dose statin therapy. * Patients 75 years or YOUNGER should receive HIGH intensity statin dose unless contraindicated. You will be required to document reason for non-treatment if statin daily dose does not meet guidelines. HIGH DOSE STATIN THERAPY DAILY Atorvastatin > than or = to 40 mg Rosuvastatin > than or = to 20 mg Amlodipine + Atorvastatin > than or = to 2.5/40 mg Ezetimibe + Simvastatin 10/80 mg Simvastatin 80mg Discharge Plan Admission Admit Date/Time: 07/27/24 16:08 Attending Provider: Rhys Fontana Primary Care Provider: Jeremiah Mckeon Consulting Providers: Tiki Saldivar Discharge Orders/Prescriptions Prescriptions: Continued nitroglycerin 0.4 mg Tablet, Sublingual 0.4 mg sublingual Q5M PRN (Reason: Cardiac/Chest Pain) Qty: 20 0RF (DME) Disability Placard See Rx Instructions .ROUTE .MEDSUPPLY Qty: 1 0RF Rx Instructions: [id number] formoterol fumarate [Perforomist] 20 mcg/2 mL solution for nebulization 2 ml inhalation Q12H Qty: 120 11RF isosorbide mononitrate 30 mg tablet extended release 24 hr 30 mg PO DAILY Qty: 30 11RF furosemide 40 mg tablet 40 mg PO DAILY PRN (Reason: edema) Qty: 30 6RF clopidogrel 75 mg tablet 75 mg PO DAILY Qty: 90 3RF verapamil 240 mg tablet extended release 240 mg PO QHS Qty: 90 3RF tamsulosin 0.4 mg capsule 0.4 mg PO BID Qty: 180 1RF Rx Instructions: take one tab PO bid budesonide 0.5 mg/2 mL suspension for nebulization 0.5 mg inhalation Q12H Qty: 180 11RF Referrals / Follow Up: Marian Rodriguez PA [Med Staff - Adv Practice Prof] - 08/02/24 10:00 am Jeremiah Mckeon, [employer] OPERATOR-C [Primary Care Provider] - Within 1 Week Disposition Disposition (needs filled in before D/C Order can be placed): Home, Self Care Charges/Coding Visit Charges Inpatient E&M: 35923 Disch Hosp >30min 07/28/24 1412 <Electronically signed by Rhys Fontana MD> Cosigner Signature (if applicable): CC: CODY Mckeon; Dr. Rhys Fontana MD~ Signed [facility] Work Phone: Discharge summary Author Tiki Saldivar [facility] Note Date/Time August 11, 2024 12: 36pm [facility] Medical Records Department [address] [place] [address] Instructions for Home/Discharge Instructions 08/11/24 1232 MR#: [id number] Acct: [id number] Name: BETTE CLEMENTS Rep #:[id number] : 1945 79 From: Tiki Saldivar MD PCP: CODY Burk Status:ADM IN Discharge Instructions Diet Discharge Diet: Light diet - advance as tolerated DC O2, CPAP, BIPAP needs Home O2 Discharge instructions: No Dressing / Incision Discharge Activity: - (Increase activity as tolerated) Follow Up Care Test Results: Test results from this visit will be discussed in further detail at your follow- up appointment, if applicable. Discharge Plan Admission Admit Date/Time: 08/10/24 17:09 Primary Reason for Your Visit: Blood in stool Attending Provider: Tiki Saldivar Primary Care Provider: Jeremiah Mckeon [facility] Consulting Providers: Rhys Fontana Instructions Patient Instructions: ED Fall Prevention Additional Instructions / Restrictions: DISCHARGE INSTRUCTIONS PLEASE READ *Please take this with you to your next doctors appointment* -You will need to follow-up with Dr. Gonzáles with GI in his office upon discharge. Please call his office to schedule an appointment (ph. [phone]) -You will need a repeat colonoscopy in the future however the date will be determined based on the results of today's exam, this can be coordinated and further discussed through your GI doctor's office -Please call your primary care provider's office upon discharge to schedule a hospital follow up within 1 week. -For any concerning signs or symptoms please call 911 or proceed to the nearest emergency department Discharge Orders/Prescriptions Prescriptions: Continued Combivent Respimat 20-100 mcg/actuation mist 2 puff INHALATION Q6H PRN (Reason: shortness of breath or wheezing) (DME) Disability Placard See Rx Instructions .ROUTE .MEDSUPPLY Qty: 1 0RF Rx Instructions: [id number]/2028 formoterol fumarate [Perforomist] 20 mcg/2 mL solution for nebulization 2 ml inhalation Q12H Qty: 120 11RF isosorbide mononitrate 30 mg tablet extended release 24 hr 30 mg PO DAILY Qty: 30 11RF furosemide 40 mg tablet 40 mg PO DAILY PRN (Reason: edema) Qty: 30 6RF clopidogrel 75 mg tablet 75 mg PO DAILY Qty: 90 3RF verapamil 240 mg tablet extended release 240 mg PO QHS Qty: 90 3RF tamsulosin 0.4 mg capsule 0.4 mg PO BID Qty: 180 1RF Rx Instructions: take one tab PO bid budesonide 0.5 mg/2 mL suspension for nebulization 0.5 mg inhalation Q12H Qty: 180 11RF Referrals / Follow Up: Faraz Gonzáles DO [Med Staff - Active Staff] - ( -You will need to follow-up with Dr. Gonzáles with GI in his office upon discharge. Please call his office to schedule an appointment (ph. [phone])) Jeremiah Mckeon NP-C [Primary Care Provider] - In 1 Week Disposition Disposition (needs filled in before D/C Order can be placed): Home, Self Care 08/11/24 1236<Electronically signed by Tiki aSldivar MD>Tiki Saldivar MD CC: KAIC Jeremiah Mckeon; Dr. Rhys Fontana MD ~ Signed [facility] Work Phone: Discharge summary Author Tiki Saldivar [facility] Note Date/Time August 11, 2024 12: 38pm [facility] Medical Records Department [address] [place] [id number] Instructions for Home/Discharge Instructions 08/11/24 1237 MR#: [id number] Acct: [id number] Name: BETTE CLEMENTS Rep #:[id number] : 1945 79 From: Tiki Saldivar MD PCP: CODY Burk Status:ADM IN Discharge Instructions Diet Discharge Diet: Light diet - advance as tolerated DC O2, CPAP, BIPAP needs Home O2 Discharge instructions: No Follow Up Care Test Results: Test results from this visit will be discussed in further detail at your follow- up appointment, if applicable. Discharge Plan Admission Admit Date/Time: 08/10/24 17:09 Primary Reason for Your Visit: Blood in stool Attending Provider: Tiki Saldivar Primary Care Provider: Jeremiah Mckeon Consulting Providers: Rhys Fontana Instructions Patient Instructions: ED Fall Prevention Additional Instructions / Restrictions: DISCHARGE INSTRUCTIONS PLEASE READ *Please take this with you to your next doctors appointment* -Would recommend lab work (CBC) to check your hemoglobin (blood count) in 2 to 3days through your primary care physician's office. Please call their office upon discharge to obtain order for lab work. -You will need to follow-up with Dr. Gonzáles with GI in his office upon discharge. Please call his office to schedule an appointment (ph. [phone]) -You will need a repeat colonoscopy in the future however the date will be determined based on the results of today's exam, this can be coordinated and further discussed through your GI doctor's office -Please call your primary care provider's office upon discharge to schedule a hospital follow up within 1 week. -For any concerning signs or symptoms please call 911 or proceed to the nearest emergency department Discharge Orders/Prescriptions Prescriptions: Continued Combivent Respimat 20-100 mcg/actuation mist 2 puff INHALATION Q6H PRN (Reason: shortness of breath or wheezing) (DME) Disability Placard See Rx Instructions .ROUTE .MEDSUPPLY Qty: 1 0RF Rx Instructions: [id number]/12/2028 formoterol fumarate [Perforomist] 20 mcg/2 mL solution for nebulization 2 ml inhalation Q12H Qty: 120 11RF isosorbide mononitrate 30 mg tablet extended release 24 hr 30 mg PO DAILY Qty: 30 11RF furosemide 40 mg tablet 40 mg PO DAILY PRN (Reason: edema) Qty: 30 6RF clopidogrel 75 mg tablet 75 mg PO DAILY Qty: 90 3RF verapamil 240 mg tablet extended release 240 mg PO QHS Qty: 90 3RF tamsulosin 0.4 mg capsule 0.4 mg PO BID Qty: 180 1RF Rx Instructions: take one tab PO bid budesonide 0.5 mg/2 mL suspension for nebulization 0.5 mg inhalation Q12H Qty: 180 11RF Referrals / Follow Up: Faraz Gonzáles DO [[facility] Staff - Active Staff] - ( -You will need to follow-up with Dr. Gonzáles with GI in his office upon discharge. Please call his office to schedule an appointment (ph. [phone])) Jeremiah Mckeon, [employer] OPERATOR-C [Primary Care Provider] - In 1 Week Disposition Disposition (needs filled in before D/C Order can be placed): Home, Self Care 08/11/24 1238<Electronically signed by Tiki Saldivar MD>Tiki Saldivar MD CC: KAIC Jeremiah Mckeon; Dr. Rhys Fontana MD ~ Signed 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 Work Phone: Evaluation note* Diagnosis Onset Date Resolution Status Asthma chronic Essential (primary) hypertension chronic Insomnia chronic Atherosclerotic heart diseas e of [place] coronary artery without angina pectoris chronic Essential (primary) hypertension chronic Hyperlipidemia chronic History of endovascular sten t graft for abdominal aortic aneurysm (AAA) June 25, 2020 resolved Therapeutic drug monitoring acute Essential (primary) hypertension chronic Insomnia chronic [facility] Work Phone: Evaluation note* Diagnosis Onset Date Resolution Status Therapeutic drug monitoring acute Essential (primary) hypertension chronic Insomnia chronic Insomnia chronic Carotid stenosis, left acute History of left inguinal hernia repair acute History of endovascular sten t graft for abdominal aortic aneurysm (AAA) June 25, [address] 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 Work Phone: Evaluation note* Diagnosis Elevated prostate specific antigen (PSA)- Primary Atherosclerosis of coronary artery of [place] heart without angina pectoris, unspecified vessel or lesion type Personal history of rectal cancer Personal history of malignant neoplasm of rectum, rectosigmoid junction, and anus Chronic obstructive pulmonary disease, unspecified COPD type (HCC) [facility] Onset Date Resolution Status Essential (primary) hypertension chronic Insomnia chronic Insomnia chronic Essential (primary) hypertension chronic Insomnia chronic Prostate CA chronic Trigger finger acute 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 Acute non-ST elevation myoca rdial infarction (NSTEMI) acute Chronic kidney disease, stage 3b acute Hypokalemia acute NSTEMI, initial episode of care acute Atherosclerotic heart diseas e of [place] coronary artery without angina pectoris chronic Essential (primary) hypertension chronic History of coronary artery stent placement June chronic Hyperlipidemia chronic 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, 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 Prostate CA chronic 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 Work Phone: Evaluation note* Diagnosis Onset Date Resolution Status Insomnia chronic Trigger finger acute Acute non-ST elevation myoca rdial infarction (NSTEMI) acute NSTEMI, initial episode of care acute History of endovascular sten t graft for abdominal aortic aneurysm (AAA) June 25, 2020 resolved Hypokalemia resolved Acute non-ST elevation myoca rdial infarction (NSTEMI) acute History of endovascular sten t graft for abdominal aortic aneurysm (AAA) June 25, [address] [facility] Work Phone: Evaluation note* Diagnosis Onset Date Resolution Status Atherosclerotic heart diseas e of [place] coronary artery without angina pectoris acute HFrEF (heart failure with re duced ejection fraction) acute SOB (shortness of breath) ac [place] History of endovascular sten t graft for abdominal aortic aneurysm (AAA) June 25, 2020 resolved Asthmatic bronchitis with exacerbation acute [id number] acute [id number] acute [id number] acute [id number]-[id number] acute [id number]-[id number] acute Trigger finger, right middle finger acute Trigger finger, right ring finger acute Preoperative evaluation to r ule out surgical contraindication acute Prostate CA acute Hypertension chronic Insomnia chronic [facility] Work Phone: Evaluation note* Diagnosis Onset Date Resolution Status Atherosclerotic heart diseas e of [place] coronary artery without angina pectoris acute HFrEF (heart failure with re duced ejection fraction) acute SOB (shortness of breath) ac [place] History of endovascular sten t graft for abdominal aortic aneurysm (AAA) June 25, 2020 resolved Asthmatic bronchitis with exacerbation acute [id number] acute [id number] acute CED-[id number] acute UTN-[id number] acute JCO-[id number] acute Trigger finger, right middle finger acute Trigger finger, right ring finger acute Preoperative evaluation to r ule out surgical contraindication acute Prostate CA acute Hypertension chronic Insomnia chronic Carotid stenosis, left acute History of endovascular sten t graft for abdominal aortic aneurysm acute [facility] Work Phone: Evaluation note* Diagnosis Onset Date Resolution Status Asthmatic bronchitis with exacerbation acute [id number] acute [id number] acute OXY-[id number] acute DCU-[id number] acute KQS-[id number] acute Trigger finger, right middle finger acute Trigger finger, right ring finger acute Preoperative evaluation to r ule out surgical contraindication acute Prostate CA acute Hypertension chronic Insomnia chronic Carotid stenosis, left acute History of endovascular sten t graft for abdominal aortic aneurysm acute Bronchiectasis chronic Trigger finger, right middle finger acute Trigger finger, right ring finger acute [facility] Work Phone: Evaluation note* Diagnosis Onset Date Resolution Status Preoperative evaluation to r ule out surgical contraindication acute Prostate CA acute Hypertension chronic Insomnia chronic Carotid stenosis, left acute History of endovascular sten t graft for abdominal aortic aneurysm acute Bronchiectasis chronic Trigger finger, right middle finger acute Trigger finger, right ring finger acute Atherosclerotic heart diseas e of [place] coronary artery without angina pectoris acute HFrEF (heart failure with re duced ejection fraction) acute History of endovascular sten t graft for abdominal aortic aneurysm (AAA) June 25, [address] [facility] Work Phone: History and physical note Author Delma Gonsalves [facility] November 14, 2022 6:15am Note Date/Time November 14, 2022 5:[address] [facility] Medical Records Department [address] [place] [address] H&P Exam - Hospitalist 11/14/22 0512 MR#: [id number] Acct: [id number] Name: BETTE CLEMENTS Rep #:[id number] : 1945 77 From: Delma Gonsalves MD PCP: Dr. Spenser Sanchez MD Status:A DM IN Location: [place] [id number] HPI - General General Date of Admission: 11/14/22 Date of Service: 11/14/22 Chief Complaint: Chest pain. HPI Narrative The patient is a 77 y/o M w/ PMHx: CKD stage III unclear subtype, Hx bowel obstruction, Prostate CA actively undergoing treatments with Dr. Montaño, AAA s/pendovascular repair/stent, Former EtOH abuse, Asthma/COPD w/ chronic hypoxic respiratory failure (3L NC q HS), CAD s/p PCI, BPH, HTN, HLD, CAD s/p PCI x 8 most recently [address] Steinberg who presents to the [facility] ED on 11/14/22 with history of onset midsternal chest pain awakening him from sleep described as a tightness, starting ~ 4 hours prior to ED arrival, rated 10/10 with no diaphoresis, dyspnea, nausea or emesis prompting EMS call. Does report that the day prior to this onset he did have some chest discomfort which came onsuddenly while at rest with no associated dyspnea, diaphoresis, nausea or emesisand abated. He does not normally have any chest pain at baseline since his prior PCI necessity. In the ED chest pain resolved. Work-up in the ED included T97.6, heart rate 90, BP 159/95, respiratory rate 27, 95% on room air with most recent vital signs heart rate 71, BP 143/69, respiratory rate 16, 94% on room air, CBC with WBC 9.1, hemoglobin 14, platelet 236 without marked shift, unremarkable coags with INR 1.0, PT 13.1, BMP with BUN/creatinine 23/1.78, glucose 107, troponin initial 47 with repeat delta 457, chest x-ray with no acute cardiopulmonary findings, EKG upon ED presentation with SR with mild ST segment flattening in the lateral leads. In the ED patient initiated on a heparin drip and case was discussed per ED physician with nursing unit clerk Dr. Henson noted possible catheterization Wednesday if remain chest pain-free. [facility] Medical History AAA (abdominal aortic aneurysm) Abdominal aortic aneurysm (AAA) greater than 5.5 cm in diameter in male Alcohol abuse Allergy to dog dander Anemia Arthritis Asthma Atherosclerotic heart disease of [place] coronary artery without angina pectoris Back pain BPH (benign prostatic hyperplasia) Bronchiectasis Cancer Complete small bowel obstruction COPD (chronic obstructive pulmonary disease) Coronary artery disease Easy bruising Elevated PSA Epistaxis Essential (primary) hypertension Excessive bleeding Former smoker History of colon cancer History of ST elevation myocardial infarction (STEMI) (05/27/07) Hyperlipidemia Hypoxia Insomnia Iron deficiency Kidney stones Left inguinal hernia Low back pain Myocardial infarct 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) On home oxygen therapy Partial bowel obstruction Personal history of other malignant neoplasm of rectum, rectosigmoid junction, and anus Prostate CA Short bowel syndrome Sinus bradycardia 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 classification Tachycardia Therapeutic drug monitoring Trigger finger Wears glasses Home Medications fluticasone propionate 50 mcg/actuation nasal spray,suspension 1 spray intranasal BID congestion 05/09/20 [History Last Taken 07/24/22] garlic 2,000 mg capsule 2,000 mg PO DAILY 06/12/21 [History Last Taken 07/24/22] albuterol sulfate 90 mcg/actuation aerosol inhaler (Ventolin HFA) 2 puff inhalation Q4H PRN shortness of breath or wheezing #18 grams 07/02/21 [Rx Last Taken Unknown] formoterol fumarate 20 mcg/2 mL solution for nebulization (Perforomist) 2 ml inhalation Q12H copd #120 mL 12/25/21 [Rx Last Taken 07/23/22] clopidogrel 75 mg tablet 75 mg PO QHS blood thinner #90 tabs 01/08/22 [Rx Last Taken 07/24/22] budesonide 0.5 mg/2 mL suspension for nebulization 0.5 mg (2 mL) inhalation I30Irnfu #180 mL 03/25/22 [Rx Last Taken 07/23/22] verapamil 240 mg tablet,extended release 240 mg PO QHS heart #90 tabs 04/28/22 [Rx Last Taken 07/24/22] ascorbic acid (vitamin C) 1,000 mg capsule 1 g PO DAILY 04/30/22 [History Last Taken 07/24/22] cholecalciferol (vitamin D3) 250 mcg (10,000 unit) capsule 250 mcg PO DAILY 04/30/22 [History Last Taken 07/24/22] glutamine 500 mg tablet (L-Glutamine) 500 mg PO BID 04/30/22 [History Last Taken 07/24/22] glutathione 500 mg capsule 50 mg PO DAILY SUPPLEMENT 04/30/22 [History Last Taken 07/24/22] lactobacillus combination no.9 4 billion cell capsule (Adult 50 Plus Probiotic) 4,000 mmu cells PO DAILY 04/30/22 [History Last Taken 07/24/22] magnesium 250 mg tablet 250 mg PO DAILY 04/30/22 [History Last Taken 07/24/22] multivitamin 2 tab PO DAILY 04/30/22 [History Last Taken 07/24/22] turmeric 400 mg capsule 400 mg PO DAILY SUPPLEMENT 04/30/22 [History Last Taken 07/24/22] vitamin B complex 1 cap PO DAILY 04/30/22 [History Last Taken 07/24/22] mirtazapine 15 mg tablet 15 mg PO QHS #90 tabs 08/17/22 [Rx Last Taken Unknown] mirtazapine 7.5 mg tablet 7.5 mg PO QHS #90 tabs 08/17/22 [Rx Last Taken Unknown] tamsulosin 0.4 mg capsule 0.4 mg PO QHS prostate #90 caps 10/13/22 [Rx Last Taken Unknown] Allergy/AdvReac Type Severity Reaction Status Date / Time aspirin Allergy Shortness Verified 11/14/22 02:11 of breath adhesive AdvReac Rash Verified 11/14/22 02:11 amoxicillin trihydrate AdvReac Other Verified 11/14/22 02:11 [From Augmentin] atorvastatin calcium AdvReac leg cramps Verified 11/14/22 02:11 [From Lipitor] isopropyl alcohol AdvReac Rash Verified 11/14/22 02:11 metoprolol succinate AdvReac Rash Verified 11/14/22 02:11 [From Toprol XL] naproxen [From Naprosyn] AdvReac Shortness Verified 11/14/22 02:11 of breath paroxetine HCl [From Paxil] AdvReac Unknown Verified 11/14/22 02:11 potassium clavulanate AdvReac tingling Verified 11/14/22 02:11 [From Augmentin] all over propoxyphene HCl AdvReac Unknown Verified 11/14/22 02:11 [From Darvon] sertraline HCl [From Zoloft] AdvReac Unknown Verified 11/14/22 02:11 simvastatin [From Zocor] AdvReac Unknown Verified 11/14/22 02:11 tiotropium bromide AdvReac Other Verified 11/14/22 02:11 [From Spiriva with HandiHaler] Family History Father Heart disease Hypertension High cholesterol CVA (cerebral vascular accident) Mother Dementia Surgical History H/O hernia repair History of coronary artery stent placement (06/07/20) History of endovascular stent graft for abdominal aortic aneurysm (AAA) (06/25/20) History of esophagogastroduodenoscopy (EGD) History of left heart catheterization (05/24/20) History of left inguinal hernia repair (06/2021) history of right eye surgery History of right inguinal hernia repair History of tonsillectomy History of tonsillectomy and adenoidectomy Hx of appendectomy Hx of bilateral cataract extraction Hx of colonoscopy Hx of sinus surgery Hx of thumb surgery Hx of umbilical hernia repair Status post laparoscopic colectomy Social History Smoking Status: Former smoker pack-years: 67 second hand exposure: No alcohol intake: current alcohol intake frequency: other Alcohol type: beer details: Previous nightly drinker. Stopped 2021 substance use type: does not use caffeine: Yes Type: coffee Number of servings: 4 what type of physical activity do you participate in: other details: pulmonary rehab frequency: 3-4 times per week ROS ROS Narrative Admission Review of Systems: CONSTITUTIONAL: No weight loss, fever, chills, + weakness or fatigue. HEENT: Eyes: No visual loss, blurred vision, double vision or yellow sclerae. Ears, Nose, Throat: No hearing loss, sneezing, congestion, runny nose or sore throat. SKIN: No rash or itching, lesions, wounds. CARDIOVASCULAR: + chest pain, chest pressure or chest discomfort, No palpitations, edema, orthopnea, syncopal events. RESPIRATORY: + Chronic shortness of breath, occasional cough without marked sputum, occasional wheezing, No hemoptysis. GASTROINTESTINAL: No anorexia, nausea, vomiting or diarrhea, abdominal pain, melena, BRBPR. GENITOURINARY: No dysuria, frequency, urgency or retention. NEUROLOGICAL: No headache, dizziness, syncope, paralysis, ataxia, numbness or tingling in the extremities, focal weakness, change in bowel or bladder control,seizure. MUSCULOSKELETAL: + muscle, back pain, joint pain or stiffness. HEMATOLOGIC: + Easy bleeding or bruising. LYMPHATICS: No enlarged nodes. No history of splenectomy. PSYCHIATRIC: No history of depression or anxiety. ENDOCRINOLOGIC: No reports of sweating, cold or heat intolerance. No polyuria orpolydipsia. ALLERGIES: No history of asthma, hives, eczema or rhinitis. Vital Signs Vital Signs Vital Signs: 11/14/22 02:07 11/14/22 02:12 11/14/22 02:13 Temperature 97.6 F L Temperature Source Oral Pulse Rate 90 Respiratory Rate 27 H Respiratory Effort Normal Respiratory Pattern Normal Blood Pressure 159/95 H Blood Pressure Mean 116 Pulse Ox 95 94 Oxygen Delivery Method Room Air Room Air 11/14/22 03:14 11/14/22 04:45 Temperature Temperature Source Pulse Rate 93 71 Respiratory Rate 22 H 16 Respiratory Effort Respiratory Pattern Blood Pressure 118/71 143/69 H Blood Pressure Mean 86 93 Pulse Ox 79 94 Oxygen Delivery Method Room Air Room Air Weight Weight: 153 lb 3.54 oz Body Mass Index (BMI) 24.0 Physical Exam Narrative Physical Examination: General: Awake, alert, oriented x 3 and cooperative, seated upright in the ED bed in no apparent distress, chest pain remains resolved. Skin: Normal color, normal turgor, no icterus, no cyanosis. HEENT: AT/NC, EOMI, PERRLA, MMM, no carotid bruits or JVD noted. Lungs: Diminished, greater bases, appropriate effort, no rales, ronchi or wheezing. Heart: Regular rate and rhythm; no gallop, rub audible. Abdomen: Soft, NTTP, ND, normal BS, no HSM. Extremities: No cyanosis, clubbing, or edema. Neurological: Patient awake, alert, oriented as noted, cognitive function intact; pupils equally reactive to light and accommodation, cranial nerves II-XII grossly normal, moving all 4 extremities, no focal deficits, strength mildlyto moderately global decrease secondary to acute presentation but improved givenchest pain resolution. Psychiatric: Affect appears fatigued, no acute evidence of depressive or anxietyfeelings. Results Lab / Micro Data 11/14/22 02:10 11/14/22 02:10 Labs: Laboratory Results - last 24 hr 11/14/22 02:10: WBC 9.1, RBC 4.77, Hgb 14.0, Hct 42.6, MCV 89.3, MCH 29.4, MCHC 32.9, RDW Std Deviation 50.1 H, RDW Coeff of Kylee 15.3 H, Plt Count 336, MPV 10.2, Immature Gran % (Auto) 0.300, Neut % (Auto) 63.8, Lymph % (Auto) 19.2, Clare % (Auto) 7.4, Eos % (Auto) 8.5 H, Baso % (Auto) 0.8, Absolute Neuts (auto) 5.8, Absolute Lymphs (auto) 1.74, Nucleated RBC % 0, PT 13.1, INR 1.0, Sodium 142, Potassium 3.5, Chloride 106, Carbon Dioxide 29.0, Anion Gap 7, BUN 23 H, Creatinine 1.78 H, Estim Creat Clear Calc 31.98, Est GFR (MDRD) Af Amer 48 L, Est GFR (MDRD) Non-Af 39 L, BUN/Creatinine Ratio 12.9, Glucose 107 H, Calcium 10.0, Troponin I High Sens 47 11/14/22 04:10: Troponin I High Sens 456 H* Radiology Impression Chest X-Ray 11/14/22 02:10 IMPRESSION: No evidence of acute cardiopulmonary disease. Electronically Signed: Brannon Degroot DO at 2:44 EDT , Assessment & Plan Assessment/Plan (1) NSTEMI, initial episode of care: PLAN: Plan The patient is a 77 y/o M w/ PMHx: CKD stage III unclear subtype, Hx bowel obstruction, Prostate CA actively undergoing treatments with Dr. Montaño, AAA s/pendovascular repair/stent, Former EtOH abuse, Asthma/COPD w/ chronic hypoxic respiratory failure (3L NC q HS), CAD s/p PCI, BPH, HTN, HLD, CAD s/p PCI x 8 most recently [address] Steinberg who presents to the [facility] ED on 11/14/22 with history of onset midsternal chest pain awakening him from sleep. #1. Chest Pain w/ Acute NSTEMI: EKG upon ED presentation with SR with mild ST segment flattening in the lateral leads, CXR w/ no acute cardiopulmonary findings. Trop elevated, initial 47 with repeat delta 547. Will admit to PCU, maintain on a monitored bed, continue serial cardiac enzymes and EKGs. Obtain magnesium level upon admission. We will continue heparin drip initiated in the ED. Continue medical management w/ plavix given ASA allergy, not on beta-kimberley is on verapamil, statin intolerant. ECHO requested. Cardiology consultedand aware of case noting potential cardiac catheterization if remains chest pain-free Wednesday. FLP in AM. NG, morphine. #2. Chronic Kidney Disease Stage III, unclear subtype: Admission BUN/Cr /1.78, baseline renal function primarily 1.4-1.8, repeat BMP in AM. #3. CAD: Status post prior PCI, will continue aspirin, not on beta-kimberley therapy as on verapamil, not on statin secondary to allergy, not on JU inhibitor/ARB per most current list but will clarify. #4. History AAA: Status post prior endovascular repair and graft-stent, continue plavix, hypertensive regimen, not on statin therapy secondary to intolerance. #5. Hypertension: Continue home regimen including verapamil, PRN hydralazine. #6. Hyperlipidemia: Noted statin allergy, FLP in AM. #7. Former alcohol abuse: Previous heavy beer intake, reportedly sober since 2021. #8. Former tobacco use: Encourage continued tobacco cessation. #9. Chronic COPD/asthma with chronic hypoxic respiratory failure: We will continue patient home 3 L nasal cannula supplementation nightly, will maintain on ATC budesonide therapy, PRN albuterol, HOB, IS parameters. #10. History of bowel obstruction: Status post partial colectomy, resolved. #11. BPH: We will continue patient home Flomax home regimen. #12. Anxiety and depression: We will continue patient home mirtazapine regimen,clarifying dose. #13. DVT prophylaxis: Continue heparin drip. #14. CODE status: Patient ROXANA is his son Khadijah and living will is currently in place. Discussed CODE status at length including difference between FULL code, DNR-CCA and DNR-CC status. Following discussions about the differences in these status, requested DNR-CCA, no intubation status. Advanced Care Planning Face to Face Time: 16 minutes. Admission Evaluation Time spent evaluating chart, patient history, patient evaluation, care planning and discussion with specialists: 60 minutes. Charges/Coding Visit Charges Inpatient E&M: 76921 Init Hosp L2 Procedures Hospitalists Procedures: 44428 Advncd Care Plan 30 Min 11/14/22 0614 <Electronically signed by Delma Gonsalves MD> Cosigner Signature (if applicable): CC: Dr. Delma Gonsalves MD; Dr. Spenser Sanchez MD~ Signed ADDENDUM by Dr. Delma Gonsalves MD on 11/14/22 at 0615 Addendum Prostate cancer: Clarification, patient has ongoing current treatment with Dr. Montaño, and has upcoming repeat PSA with reevaluation on 11/30/2022 reportedly having an injection x1. 11/14/22 0615<Electronically signed by Delma Gonsalves MD> Cosigner Signature (if applicable): cc: Dr. Delma Gonsalves MD; Dr. Spenser Sanchez MD ~* Signed [facility] Work Phone: History and physical note Author Faraz Friend [facility] Note Date/Time July 18, 2024 2:2 6pm [facility] Medical Records Department [address] [place] [address] History & Physical Exam 07/18/24 1423 MR#: [id number] Acct: [id number] Name: BETTE CLEMENTS Destiny Rep #:[id number] : 1945 79 From: Faraz Gonzáles DO PCP: Jeremiah Mckeon, [employer]ATOR-C [place] [facility] [place] [address] HPI - General General Date of Admission: 07/18/24 Date of Service: 07/18/24 Chief Complaint: lower GI bleeding HPI Narrative 78y/o male presents for evaluation and treatment of lower GI bleeding. His PMHis significant for CAD, MIx2, cardiac stent x9 on plavix, moderate COPD with bronchiectasis complicated by chronic hypoxic respiratory failure, CKD3b, prostate CA, colon CA (2007). He complaints of BRBPR with BM for the past 6-8 weeks. He is also experiencing intermittent generalized abdominal pain and a 15lb weight loss in the past six months. He does have supplemental oxygen and uses as needed. He routinely uses 3 L/min with sleep. - 9 cardiac stents - on plavix - CAD, MIx2 - denies any h/o CVA - prep-H has helped slow down the rectal bleeding - the bleeding has been ongoing for the past 6-8 weeks - bleeding at times can be minimal and other times can be quite a bit - bleeding is only with a BM - he is straining to have a BM - he does experience intermittent generalized abdominal pain - denies any rectal pain - reports he had colon resection in 2007 for colon CA - with dietary modifications diarrhea resolved in the past 6 months - reports hehad diarrhea from 2007 until recently - he is now exercising and weight lifting - has noticed some increase in SOB reports he almost cancelled appt today because of SOB - states he is planning on following up with pulmonology - c/o fatigue - reports he has dizziness only with bending over - reports this is not new - denies any palpitations - O2 primarily at HS only - his last colonoscopy was with Dr. Cardona - cannot remember when this was - weight loss 15lbs in the past 6 months - lives alone - now in assisted living - currently on hormone injections for prostate CA PLAV[facility] Medical History Marijuana use Prostate disease Shortness of breath on exertion Preoperative evaluation to rule out surgical contraindication Asthmatic bronchitis with exacerbation Nocturia Malignant neoplasm of colon, unspecified Heart disease Emphysema, unspecified Anxiety Frequency of micturition Chronic kidney disease, stage 3b Trigger finger Prostate CA Partial bowel obstruction Complete small bowel obstruction Elevated PSA Therapeutic drug monitoring Wears glasses Arthritis Easy bruising Excessive bleeding Back pain On home oxygen therapy Asthma Anemia Cancer Alcohol abuse Kidney stones Former smoker AAA (abdominal aortic aneurysm) Myocardial infarct Coronary artery disease Low back pain Epistaxis Sinus bradycardia Left inguinal hernia Essential (primary) hypertension Hyperlipidemia 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) History of ST elevation myocardial infarction (STEMI) (05/27/07) Insomnia Iron deficiency Abdominal aortic aneurysm (AAA) greater than 5.5 cm in diameter in male Hypoxia Bronchiectasis Allergy to dog dander Short bowel syndrome BPH (benign prostatic hyperplasia) Personal history of other malignant neoplasm of rectum, rectosigmoid junction, and anus Tachycardia 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 classification History of colon cancer COPD (chronic obstructive pulmonary disease) Home Medications ?Medication ?Instructions ?Recorded ?Last Taken ?Type albuterol sulfate 90 mcg/actuation 2 puff inhalation Q 4H PRN 07/02/21 Unknown Rx aerosol inhaler (Ventolin HFA) shortness of breath or wheezing #18 grams nitroglycerin 0.4 mg sublingual 0.4 mg sublingual Q5M PRN 11/16/22 Unknown Rx tablet Cardiac/Chest Pain #20 tabs Disability Placard #1 ea 02/11/23 Unknown Rx formoterol fumarate 20 mcg/2 mL 2 ml inhalation Q12H c opd #120 mL 05/06/23 Unknown Rx solution for nebulization (Perforomist) ipratropium 20 mcg-albuterol 100 1 puff inhalation Q6H #4 grams 12/08/23 Unknown Rx mcg/actuation mist for inhalation (Combivent Respimat) isosorbide mononitrate 30 mg 30 mg PO DAILY #30 TABLET S 12/10/23 Unknown Rx tablet,extended release 24 hr furosemide 40 mg tablet 40 mg PO DAILY PRN edema #30 tabs 12/13/23 Unknown Rx clopidogrel 75 mg tablet 75 mg PO DAILY #90 tabs 01/3107/12/24 Rx verapamil 240 mg tablet,extended 240 mg PO QHS heart # 90 tabs 05/05/24 Unknown Rx release tamsulosin 0.4 mg capsule 0.4 mg PO BID prostate #180 caps 05/22/24 Unknown Rx budesonide 0.5 mg/2 mL suspension 0.5 mg (2 mL) inhala tion Q12H #180 06/14/24 Unknown Rx for nebulization mL Allergy/AdvReac Type Severity Reaction Status Date / Time aspirin Allergy Shortness Verified 07/18/24 12:19 of breath adhesive AdvReac Rash Verified 07/18/24 12:19 amoxicillin trihydrate (From AdvReac Other Verified 07/18/24 12:19 Augmentin) atorvastatin calcium (From AdvReac leg cramps Verified 07/18/24 12:19 Lipitor) isopropyl alcohol AdvReac Rash Verified 07/18/24 12:19 metoprolol succinate (From AdvReac Rash Verified 07/18/24 12:19 Toprol XL) naproxen (From Naprosyn) AdvReac Shortness Verified 07/18/24 12:19 of breath paroxetine HCl (From Paxil) AdvReac Unknown Verified 07/18/24 12:19 potassium clavulanate (From AdvReac tingling Verified 07/18/24 12:19 Augmentin) all over propoxyphene HCl (From AdvReac Unknown Verified 07/18/24 12:19 Darvon) sertraline HCl (From Zoloft) AdvReac Unknown Verified 07/18/24 12:19 simvastatin (From Zocor) AdvReac Unknown Verified 07/18/24 12:19 tiotropium bromide (From AdvReac Other Verified 07/18/24 12:19 Spiriva with HandiHaler) Family History Father Heart disease Hypertension High cholesterol CVA (cerebral vascular accident) Mother Dementia Surgical History H/O hernia repair History of left inguinal hernia repair (06/2021) Hx of thumb surgery History of esophagogastroduodenoscopy (EGD) Hx of colonoscopy Hx of sinus surgery History of endovascular stent graft for abdominal aortic aneurysm (AAA) (06/25/20) History of left heart catheterization (05/24/20) History of coronary artery stent placement (11/27/22) Hx of umbilical hernia repair Hx of appendectomy History of tonsillectomy and adenoidectomy Hx of bilateral cataract extraction Status post laparoscopic colectomy history of right eye surgery History of right inguinal hernia repair History of tonsillectomy Social History Smoking Status: Former smoker pack-years: 67 second hand exposure: No alcohol intake: former details: Previous nightly drinker. Stopped 2021 substance use type: marijuana caffeine: Yes Type: coffee Number of servings: 4 what type of physical activity do you participate in: other details: pulmonary rehab frequency: 3-4 times per week additional social history: Has had blood transfusion ROS Constitutional Constitutional: Denies fatigue, fever(s), poor appetite, weight gain or weight loss Gastrointestinal Gastrointestinal: Denies belching, bloating, change in bowel habits, change in stool character, chewing difficulty, coffee ground emesis, constipation, cramping, diarrhea, dyspepsia, dysphagia, early satiety, excessive flatus, fecalincontinence, heartburn, hematemesis, hematochezia, hemorrhoids, loose stools, melena, nausea, odynophagia, rectal bleeding, tenesmus, vomiting or weight changes Vital Signs Vital Signs Vital Signs: 07/18/24 12:21 07/18/24 12:21 07/18/24 12:38 Temperature 97.8 F 97.8 F Temperature Source Temporal Pulse Rate 90 90 Respiratory Rate 16 16 Respiratory Pattern Normal Blood Pressure 154/84 H 154/84 H Blood Pressure Mean 107 Blood Pressure Source Monitor Blood Pressure Position Sitting Blood Pressure Location Left Arm Pulse Ox 96 96 Oxygen Delivery Method Room Air Nasal Cannula Oxygen Flow Rate (L/min) 3 Weight Weight: 134 lb 11.239 oz Body Mass Index (BMI) 21.1 Physical Exam Const alert, oriented x3, no apparent distress and healthy appearing General Appearance: cooperative GI normal to inspection, nondistended, normoactive bowel sounds, soft to palpation,non-tender and non-distended Percussion: normal to percussion Rectal Exam: deferred Assessment & Plan Assessment/Plan (1) Personal history of other malignant neoplasm of large intestine: (2) Rectal bleeding: PLAN: Assessment and Plan Assessment and Plan (1) Rectal bleeding: Status: Acute (2) Personal history of other malignant neoplasm of large intestine: Status: Acute (3) Abdominal pain: Status: Acute Qualifiers: Abdominal location: generalized Qualified Code(s): R10.84 - Generalizedabdominal pain Orders: Orders CBC W/Diff, Automated Today K62.5 - Hemorrhage of anus and rectum Colonoscopy Today Medications: New hydrocortisone 2.5% 1 applic ME QD-BID PRN 30 grams 0RF rectal bleeding Plan 78y/o male presents for consultation with complaints of a bleeding hemorrhoid. His PMH is significant for CAD, MIx2, cardiac stent x9 on plavix, moderate COPD with bronchiectasis complicated by chronic hypoxic respiratory failure, CKD3b, prostate CA, colon CA (2007). He complaints of BRBPR with BM for the past 6-8 weeks. He is also experiencing intermittent generalized abdominal pain and a 15lb weight loss in the past six months. He does endorse worsening SOB and fatigue; denies any palpitations. I have ordered a CBC to be completed today andscheduled colonoscopy, pending cardiac and pulmonary clearance. If unable to obtain clearance will proceed with unsedated Sigmoidoscopy. 1. CBC today 2. Colonoscopy if cleared from a cardiac and pulmonary standpoint 3. Obtain clearance to hold Plavix 4. If unable to proceed safely with colonoscopy - will change to unsedated Sigmoidoscopy 07/18/24 1426 <Electronically signed by Faraz Gonzáles DO> Cosigner Signature (if applicable): CC: CODY Mckeon; Faraz Gonzáles DO~ Signed [facility] Work Phone: History and physical note Author Tiki Saldivar [facility] Note Date/Time July 27, 2024 4:3 5pm [facility] Medical Records Department [address] [place] [id number] H&P Exam - Hospitalist 07/27/24 1608 MR#: [id number] Acct: [id number] Name: BETTE CLEMENTS Rep #:[id number] : 1945 79 From: Tiki Saldivar MD PCP: CODY Burk Status:ADM KISHORE Location: [place] [address] HPI - General General Date of Admission: 07/27/24 Date of Service: 07/27/24 Chief Complaint: Diarrhea and blood in stool HPI Narrative BETTE CLEMENTS, is a 79M with history of coronary artery disease status post PCI onPlavix, prostate cancer status post radiation and current hormonal therapy with Dr. Montaño, previous colon cancer status post colon resection, previous GI bleedpresented to [facility] ED 07/27/2024 for evaluation of repeat GIbleed. He recently had colonoscopy by Dr. Gonzáles and patient states he was toldhis colon was burned from radiation. Since his colon resection years ago he has been having diarrhea and notes that yesterday his diarrhea increased and he noted a large blood clot in his depends today with 2 further bowel movements that have blood in them. Patient has also been drinking alcohol daily to help him sleep and has been doing so for months. States he woke up at 6 AM today andtook 6 shots of whiskey to help him go back to sleep. In the ED patient with heart rate of 91 and blood pressure 141/82, respiratory rate 17 with pulse ox of93%. Patient's hemoglobin 13.5, yesterday was 14, presently at baseline but is FOBT positive. Additionally creatinine 1.51 which seems to be at baseline and potassium of 3.2. Lactic acid also elevated at 4.1 without trend of 4.8. Patient had CT of the abdomen and pelvis in the ED which showed no acute hemorrhage identified but wall thickening at the GE junction and gastric cardia with small subserosal fluid collection posteriorly, Justyna-Cross tear and ulceration or neoplasm are considerations. Patient also with mild diffuse wall thickening of the rectosigmoid colon, possibly due to infectious or inflammatoryproctocolitis. GI contacted and it was felt that patient's dehydration and diarrhea were irritating his known lesions and that patient is stable and no acute inpatient management needed from a GI standpoint, vitally stable, hemoglobin stable. It was recommended the patient follow-up outpatient. Hospitalist contacted for admission for patient's dehydration and elevated lactic acid. Patient evaluated at bedside and he does report he has frequent diarrhea and has been having blood in his stool since before March, he has very poor p.o. intake both food and liquids but is continued to take his Lasix as prescribed for leg swelling, usually takes about 2 shots at bedtime but over this past week drank about 1/5, denies any day drinking, denies any history of alcohol withdraw or adverse symptoms if he does not drink. Reports he chronically has some abdominal tenderness centrally and this is unchanged, no nausea or vomiting, no urinary symptoms. [facility] Medical History Marijuana use Prostate disease Shortness of breath on exertion Preoperative evaluation to rule out surgical contraindication Asthmatic bronchitis with exacerbation Nocturia Malignant neoplasm of colon, unspecified Heart disease Emphysema, unspecified Anxiety Frequency of micturition Chronic kidney disease, stage 3b Trigger finger Prostate CA Partial bowel obstruction Complete small bowel obstruction Elevated PSA Therapeutic drug monitoring Wears glasses Arthritis Easy bruising Excessive bleeding Back pain On home oxygen therapy Asthma Anemia Cancer Alcohol abuse Kidney stones Former smoker AAA (abdominal aortic aneurysm) Myocardial infarct Coronary artery disease Low back pain Epistaxis Sinus bradycardia Left inguinal hernia Essential (primary) hypertension Hyperlipidemia 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) History of ST elevation myocardial infarction (STEMI) (05/27/07) Insomnia Iron deficiency Abdominal aortic aneurysm (AAA) greater than 5.5 cm in diameter in male Hypoxia Bronchiectasis Allergy to dog dander Short bowel syndrome BPH (benign prostatic hyperplasia) Personal history of other malignant neoplasm of rectum, rectosigmoid junction, and anus Tachycardia 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 classification History of colon cancer COPD (chronic obstructive pulmonary disease) Home Medications ?Medication ?Instructions ?Recorded ?Last Taken ?Type albuterol sulfate 90 mcg/actuation 2 puff inhalation Q 4H PRN 07/02/21 Unknown Rx aerosol inhaler (Ventolin HFA) shortness of breath or wheezing #18 grams nitroglycerin 0.4 mg sublingual 0.4 mg sublingual Q5M PRN 11/16/22 Unknown Rx tablet Cardiac/Chest Pain #20 tabs Disability Placard #1 ea 02/11/23 Unknown Rx formoterol fumarate 20 mcg/2 mL 2 ml inhalation Q12H c opd #120 mL 05/06/23 Unknown Rx solution for nebulization (Perforomist) ipratropium 20 mcg-albuterol 100 1 puff inhalation Q6H #4 grams 12/08/23 Unknown Rx mcg/actuation mist for inhalation (Combivent Respimat) isosorbide mononitrate 30 mg 30 mg PO DAILY #30 TABLET S 12/10/23 Unknown Rx tablet,extended release 24 hr furosemide 40 mg tablet 40 mg PO DAILY PRN edema #30 tabs 12/13/23 Unknown Rx clopidogrel 75 mg tablet 75 mg PO DAILY #90 tabs 01/3107/12/24 Rx verapamil 240 mg tablet,extended 240 mg PO QHS heart # 90 tabs 05/05/24 Unknown Rx release tamsulosin 0.4 mg capsule 0.4 mg PO BID prostate #180 caps 05/22/24 Unknown Rx budesonide 0.5 mg/2 mL suspension 0.5 mg (2 mL) inhala tion Q12H #180 06/14/24 Unknown Rx for nebulization mL Allergy/AdvReac Type Severity Reaction Status Date / Time aspirin Allergy Shortness Verified 07/27/24 09:43 of breath adhesive AdvReac Rash Verified 07/27/24 09:43 amoxicillin trihydrate (From AdvReac Other Verified 07/27/24 09:43 Augmentin) atorvastatin calcium (From AdvReac leg cramps Verified 07/27/24 09:43 Lipitor) isopropyl alcohol AdvReac Rash Verified 07/27/24 09:43 metoprolol succinate (From AdvReac Rash Verified 07/27/24 09:43 Toprol XL) naproxen (From Naprosyn) AdvReac Shortness Verified 07/27/24 09:43 of breath paroxetine HCl (From Paxil) AdvReac Unknown Verified 07/27/24 09:43 potassium clavulanate (From AdvReac tingling Verified 07/27/24 09:43 Augmentin) all over propoxyphene HCl (From AdvReac Unknown Verified 07/27/24 09:43 Darvon) sertraline HCl (From Zoloft) AdvReac Unknown Verified 07/27/24 09:43 simvastatin (From Zocor) AdvReac Unknown Verified 07/27/24 09:43 tiotropium bromide (From AdvReac Other Verified 07/27/24 09:43 Spiriva with HandiHaler) Family History Father Heart disease Hypertension High cholesterol CVA (cerebral vascular accident) Mother Dementia Surgical History H/O hernia repair History of left inguinal hernia repair (06/2021) Hx of thumb surgery History of esophagogastroduodenoscopy (EGD) Hx of colonoscopy Hx of sinus surgery History of endovascular stent graft for abdominal aortic aneurysm (AAA) (06/25/20) History of left heart catheterization (05/24/20) History of coronary artery stent placement (11/27/22) Hx of umbilical hernia repair Hx of appendectomy History of tonsillectomy and adenoidectomy Hx of bilateral cataract extraction Status post laparoscopic colectomy history of right eye surgery History of right inguinal hernia repair History of tonsillectomy Social History Smoking Status: Former smoker pack-years: 67 second hand exposure: No alcohol intake: former details: Previous nightly drinker. Stopped 2021 substance use type: marijuana caffeine: Yes Type: coffee Number of servings: 4 what type of physical activity do you participate in: other details: pulmonary rehab frequency: 3-4 times per week additional social history: Has had blood transfusion ROS ROS Narrative General: Denies fever/chills HENT: Denies headache, denies stuffy nose, denies sore throat but does wake up and notes he has a lot of mucus production but this is not new EYES: Denies changes in vision Resp: Denies cough, some chronic shortness of breath with the COPD Cardiac: Denies chest pain GI: Reports some chronic abdominal pain with no change from baseline, has continued to have diarrhea, noted some further blood in stool today, he is unsure if he has had any more since coming to the ED as he has a depends on, no nausea : Denies changes in urination Extremity: Gets some intermittent swelling in lower extremities MSK: Denies weakness Neuro: Denies any numbness/tingling Heme: Easy bruising Skin: Denies rashes Psychiatric: No complaints voiced Vital Signs Vital Signs Vital Signs: 07/27/24 09:43 07/27/24 11:26 07/27/24 12:06 Temperature 98.1 F Temperature Source Axillary Pulse Rate 91 76 89 Respiratory Rate 17 20 H 16 Respiratory Pattern Normal Blood Pressure 141/82 H 161/69 H Blood Pressure Mean 101 99 Pulse Ox 93 98 Oxygen Delivery Method Room Air 07/27/24 14:00 07/27/24 15:43 Temperature 97.3 F L Temperature Source Pulse Rate 78 78 Respiratory Rate 16 16 Respiratory Pattern Blood Pressure 146/78 H 146/78 H Blood Pressure Mean 100 100 Pulse Ox 98 98 Oxygen Delivery Method Weight Weight: 65.3 kg Body Mass Index (BMI) 22.5 Results Lab / Micro Data 07/27/24 10:20 07/27/24 10:20 Labs: Laboratory Results - last 24 hr 07/27/24 10:20: WBC 7.6, RBC 4.11 L, Hgb 13.5, Hct 38.4 L, MCV 93.4, MCH 32.8 H,MCHC 35.2, RDW Std Deviation 42.6, RDW Coeff of [place] 12.5, Plt Count 380, MPV 9.9, Immature Gran % (Auto) 0.300, Neut % (Auto) 73.6 H, Lymph % (Auto) 13.4 L, [place] % (Auto) 5.5, Eos % (Auto) 6.0 H, Baso % (Auto) 1.2 H, Absolute Neuts (auto) 5.6, Absolute Lymphs (auto) 1.02, Nucleated RBC % 0, Sodium 143, Potassium 3.2 L, Chloride 102, Carbon Dioxide 24.1, Anion Gap 17 H, BUN 33 H, Creatinine 1.51 H, Estim Creat Clear Calc 36.04 L, Est GFR (MDRD) Non-Af 46 L, BUN/Creatinine Ratio 21.7 H, Glucose 84, Lactic Acid 4.1 H*, Calcium 9.8, Total Bilirubin 0.56, AST 27, ALT 15, Alkaline Phosphatase 74, Total Protein 6.5, Albumin 4.3, Globulin 2.2, Albumin/Globulin Ratio 1.9, Lipase 47, Ethyl Alcohol 127.0 H 07/27/24 13:20: Urine Color Yellow, Urine Clarity Clear, Urine pH 6.0, Ur Specific [place] 1.015, Urine Protein 15 H, Urine Glucose (UA) Normal, Urine Ketones 5 H, Urine Occult Blood Negative, Urine Nitrite Negative, Urine Bilirubin Negative, Urine Urobilinogen Normal, Ur Leukocyte Esterase Negative, Urine RBC 0 SEEN, Urine WBC 0 SEEN, Ur Squamous Epith Cells 0 SEEN, Urine Bacteria 0 SEEN, Urine Mucus 0 SEEN 07/27/24 13:28: Lactic Acid 4.8 H* Micro: Microbiology 07/27/24 10:12 Stool Stool Occult Blood (WINTER) - Final Occult Blood Positive Imaging Radiology Impression Abdomen/Pelvis CT 07/27/24 12:22 IMPRESSION: 1. No acute gastrointestinal hemorrhage identified within the limits of this venous phase exam. 2. Wall thickening at the gastroesophageal junction and gastric cardia region with a small subserosal fluid collection posteriorly at the gastroesophageal junction. A Justyna-Cross tear, ulceration or neoplasm are possible considerations. A small hiatal hernia is also noted. Endoscopic evaluation is recommended. 3. Mild diffuse wall thickening of the rectosigmoid colon, possibly due to infectious or inflammatory proctocolitis. 4. Remote prior partial colonic resection at the rectosigmoid junction with chronic soft tissue thickening of the presacral region. 5. Mild colonic diverticulosis. 6. Other chronic findings in the body of the report. [facility] Assessment & Plan Assessment/Plan (1) Elevated lactic acid level: (2) Dehydration: PLAN: Plan # Elevated lactic acid and dehydration -Patient reports very poor p.o. intake on top of diarrhea and taking Lasix -Appears clinically dehydrated -Initial lactic acid 4.3 and up trended to 4.8, patient on IV fluids -Will recheck BMP, initial BMP with a gap of 17 however bicarb within normal limits -Also check VBG -Will repeat lactic acid later for further assessment as well # Blood per rectum in setting of chronic changes from radiation and partial colonic resection in 2007 for colon cancer - CT of the abdomen and pelvis in the ED which showed no acute hemorrhage identified but wall thickening at the GE junction with mild diffuse wall thickening of the rectosigmoid colon -ED physician discussed with patient's carbon brush maker, patient just had colonoscopy 07/18/2024 with two 7 mm polyps removed and multiple nonbleeding colonic angiodysplastic lesions. Per report it was felt that patient's bleedingwas from his diarrhea and dehydration and that this can be followed up outpatient as it was part of his chronic problems that are being managed -Hemoglobin was 13.5 which is his baseline -Continue home PPI -Will continue home Plavix unless significant drop or significant bleeding necessitating inpatient GI consult -Expect patient's hemoglobin will decrease tomorrow given he is receiving IV fluids, if drop is out of proportion or patient having significant blood per rectum could consider recontacting GI to assess for any updated recommendations. -Repeat hemoglobin in the a.m. or sooner if there are concerns for increased bleeding # Alcohol abuse -EtOH 127 in the ED -Patient reports he drinks nightly -Denies any history of withdrawal or DTs or withdrawal symptoms if he does not drink -Did drink somewhat more this week compared to usual -CIWA with as needed Ativan -Thiamine and folate #Hypokalemia -Replace -Repeat in the AM # CKD stage III a -Appears to be at baseline -Avoid nephrotoxic agents -Daily BMPs # History of borderline EF -In 2022 patient's EF was estimated at 45% with wall motion abnormalities, unable to assess diastolic function -Daily weights, I's and O's -Will hydrate cautiously -Appears patient is feeling Imdur so we will continue, will need to verify if patient is on verapamil prior to continuing # COPD -Continue home inhalers -Albuterol as needed # History of coronary artery disease status post PCI -History of 9 stents -On home Plavix # Prostate cancer status post radiation and currently on hormonal therapy -Follows with Dr. Montaño #Chronic BPH with obstruction -Continue home medications #DVT ppx: SCDs Tiki Saldivar MD Charges/Coding Visit Charges Inpatient E&M: 05863 Init Hosp L2 07/27/24 1635 <Electronically signed by Tiki Saldivar MD> Cosigner Signature (if applicable): CC: [employer] RECOV[employer] OPERATOR-Agapito Mckeon; Dr. Tiki Saldivar MD~ Signed [facility] Work Phone: Hospital Discharge instructions Additional Instructions The skin glue will dissolve itself, return for any signs of infection.[facility] Work Phone: Hospital Discharge instructions Additional Instructions Log your blood pressure daily and follow-up with either Dr. Christiano Steinberg or Dr Sanchez to determine if they want to start you on a blood pressure medication.[facility] Work Phone: Progress note Author Nano Long [facility] November 16, 2022 11:07am Note Date/Time November 16, 2022 11:[address] [facility] Medical Records Department [address] [place] [address] Progress Note - Nephrology 11/16/22 1101 MR#: [id number] Acct: [id number] Name: BETTE CLEMENTS Rep #:[id number] : 1945 77 From: Nano dominguez [employer]OVERY OPERATOR-C PCP: Dr. Spenser Sanchez MD Status:A DM IN Location: [place] [id number]- [id number] Subjective Subjective Following for a DOMENICA on CKD Patient resting in bed. Denies any complaints. Objective Data Objective Data Vital Signs: Vital Signs Temp Pulse Resp BP Pulse Ox O2 Del Method 98.6 F 80 18 106/70 93 Room Air 11/16/22 04:20 11/16/22 07:12 11/16/22 07:12 11/16/22 04:20 11/16/22 04:20 11/16/22 10:00 Oxygen Delivery Method Room Air Weight: 66 kg Body Mass Index (BMI) 21.5 Intake & Output: Intake and Output for Last 24 Hours 11/14/22 11/15/22 11/16/22 23:59 23:59 23:59 Intake Total 1635.53 / 1635.53 183.53 / 183.53 864.18 / 864.18 Output Total 700 / 1400 1100 / 1100 600 / 600 Balance 935.53 / 235.53 -916.47 / -916.47 264.18 / 264.18 Lab / Micro Data 11/15/22 06:40 11/16/22 03:00 Labs: Laboratory Results - last 24 hr 11/15/22 14:30: APTT 39.0 H 11/15/22 17:35: Urine Color Yellow, Urine Clarity Clear, Urine pH 6.5, Ur Specific [place] 1.010, Urine Protein Negative, Urine Glucose (UA) Normal, UrineKetones Negative, Urine Occult Blood Negative, Urine Nitrite Negative, Urine Bilirubin Negative, Urine Urobilinogen Normal, Ur Leukocyte Esterase Negative, Urine RBC 0 SEEN, Urine WBC 0 SEEN, Ur Squamous Epith Cells 0 SEEN, Urine Bacteria 0 SEEN, Urine Mucus 0 SEEN 11/15/22 21:30: APTT 66.1 H 11/16/22 03:00: APTT 77.4 H, Sodium 140, Potassium 3.4 L, Chloride 112 H, CarbonDioxide 23.0, Anion Gap 5, BUN 20 H, Creatinine 1.47 H, Estim Creat Clear Calc 38.37, Est GFR (MDRD) Af Amer 60, Est GFR (MDRD) Non-Af 49 L, BUN/Creatinine Ratio 13.6, Glucose 110 H, Calcium 9.5, Phosphorus 3.1, Albumin 3.2 11/16/22 09:30: APTT 35.8 Physical Exam Narrative Alert and oriented x3, NAD. Normal S1, S2. No rubs, murmurs, or gallops. Lung sounds clear anteriorly and posteriorly Abdomen soft, nontender No edema edema. Assessment & Plan Assessment/Plan (1) Chronic kidney disease, stage 3b: (2) Essential (primary) hypertension: (3) Acute non-ST elevation myocardial infarction (NSTEMI): PLAN: Plan Impression/Plan: The patient is a 77-year-old man with past history of hypertension, prostate cancer, PAD status post endovascular repair of abdominal attic aneurysm, COPD, CAD status post PCI, and CKD. The patient was admitted to the hospital on 11/14/2022 with NSTEMI. Nephrology is following for chronic kidney disease. Chronic kidney disease stage G3b. Baseline serum creatinine has been around 1.5 to 1.8 mg/dL. He presented to the hospital on 11/14/2022 with serum creatinine 1.78 mg/dL whichis at baseline. Patient states renal function is monitored by PCP, he does not follow with nephrology. Renal function has been stable for over 5 years per his report. The patient did undergo endovascular repair of AAA approximately 2 years ago andreceived IV contrast without problems. Reviewed with patient importance of avoiding NSAIDs. Renal function is stable today with serum creatinine of 1.47 mg/dL again today which is at baseline. Hypertension. BP is reasonably controlled. Continue current dose of verapamil. NSTEMI. Patient was tentatively scheduled for cardiac catheterization for today however procedure has been postponed till tomorrow due to unavailability of nursing unit clerk. Patient has decided to be discharged to home today (he cares for his demented ) and will follow-up with cardiology. -We will arrange for hospital follow-up 11/16/22 1107 <Electronically signed by Nano ROSS> Cosigner Signature (if applicable): CC: ~ Signed [facility] Work Phone: Reason for referral (narrative)No reason for referral information availableWCleveland Clinic Work Phone: Summary Purpose Family History No Family History Records Found Relationship Condition Age at Onset Recorded Date/T bull father Cardiac disease Unknown Hypertension Unknown High blood cholesterol Unknown Cerebrovascular accident (CVA) Unknown mother Dementia Unknown Advance Directives No Advanced Directives Records FoundDocuments on File Type Date Recorded Patient Stars Specialist Expl anation ACP-Advance Directive 06/07/2020 12:00 AM ACP-Power of Throat Cutter 05/31/2020 12:44 PM Latest Code Status on File Code Status Date Activated Date Inactivated Comments Full Code 06/07/2020 10:20 AM Full Code 06/07/2020 7:37 AM 06/07/2020 10:20 AM Advance Directive Response Recorded Date/ Time Advance Directives Yes June 12:42pm Living Will Yes June 12 11:55am Power of Throat Cutter Yes June 12, 2021 11:55am Advance Directive Response Recorded Date/ Time Advance Directives Yes June 11:42am Living Will Yes June 12 10:55am Power of Throat Cutter Yes June 12, 2021 10:55am Advance Directive Response Recorded Date/ Time Name of Medical Power of Throat Cutter belkis pedraza khadijah clements July 25, 2022 7:21am Advance Directives Yes June 12:42pm Living Will Yes July 25, 2022 7:21am Power of Throat Cutter Yes July 25 7:21am Advance Directive Response Recorded Date/ Time Name of Medical Power of Throat Cutter Khadijah Balderas July 25, 2022 1:07pm Advance Directives Yes June 12:42pm Living Will Yes July 25, 2022 1:07pm Power of Throat Cutter Yes July 25 1:07pm Advance Directive Response Recorded Date/ Time Name of Medical Power of Throat Cutter Khadijah Balderas July 25, 2022 1:07pm Advance Directives Yes June 12:42pm Living Will No July 31, 2022 4:24pm Power of Throat Cutter No July 31 4:24pm Advance Directive Response Recorded Date/ Time Name of Medical Power of Throat Cutter Khadijah Balderas July 25, 2022 1:07pm Name of Medical Power of Throat Cutter milo lucio August 08, 2022 3:03pm Advance Directives Yes June 12:42pm Living Will Yes August 08, 2022 3:03pm Power of Throat Cutter Yes August 08 3:03pm Advance Directive Response Recorded Date/ Time Name of Medical Power of Throat Cutter Khadijah Bette July 25, 2022 1:07pm Name of Medical Power of Throat Cutter khadijah, son August 08, 2022 3:03pm Name of Medical Power of Throat Cutter Khadijah Clements November 01, 2022 8:13am Advance Directives Yes June 12:42pm Living Will Yes November 01, 2022 8 :13am Power of Throat Cutter Yes November 01, 2022 8:13am Advance Directive Response Recorded Date/ Time Name of Medical Power of Throat Cutter Khadijah Bette July 25, 2022 1:07pm Name of Medical Power of Throat Cutter khadijah, milo August 08, 2022 3:03pm Name of Medical Power of Throat Cutter Khadijah Clements November 01, 2022 8:13am Name of Medical Power of Throat Cutter ana November 14, 2022 2:11am Advance Directives Yes June 12:42pm Living Will Yes November 14, 2022 2:11am Power of Throat Cutter Yes November 14 2:11am Advance Directive Response Recorded Date/ Time Name of Medical Power of Throat Cutter Khadijahvan Balderas July 25, 2022 1:07pm Name of Medical Power of Throat Cutter khadijah, milo August 08, 2022 3:03pm Name of Medical Power of Throat Cutter Khadijah Clements November 01, 2022 8:13am Name of Medical Power of Throat Cutter Khadijah Clements November 14, 2022 6:29am Advance Directives Yes June 12:42pm Living Will Yes November 14, 2022 6:29am Power of Throat Cutter Yes November 14 6:29am Advance Directive Response Recorded Date/ Time Name of Medical Power of Throat Cutter khadijah, milo August 08, 2022 3:03pm Name of Medical Power of Throat Cutter Khadijah Clements November 01, 2022 8:13am Name of Medical Power of Throat Cutter Khadijah Clements November 14, 2022 6:29am Advance Directives on File Yes November 27, 2022 7:48am Name of Medical Power of Throat Cutter Khadijah Clements-s on November 27, 2022 7:48am Advance Directives Yes November 27 7:48am Living Will Yes November 27, 2022 7:48am Power of Throat Cutter Yes November 27 7:48am Advance Directive Response Recorded Date/ Time Name of Medical Power of Throat Cutter milo lucio August 08, 2022 3:03pm Name of Medical Power of Throat Cutter Khadijah Clements November 01, 2022 8:13am Name of Medical Power of Throat Cutter Khadijah Clements November 14, 2022 6:29am Advance Directives on File Yes November 27, 2022 7:48am Name of Medical Power of Throat Cutter Khadijah Clements-s on November 27, 2022 7:48am Name of Medical Power of Throat Cutter KHADIJAH November 30, 2022 11:31am Advance Directives Yes November 27 7:48am Living Will Yes November 30, 2022 11:31am Power of Throat Cutter Yes November 30 11:31am Advance Directive Response Recorded Date/ Time Name of Medical Power of Throat Cutter Khadijah Clements November 01, 2022 8:13am Name of Medical Power of Throat Cutter Khadijah Clements November 14, 2022 6:29am Advance Directives on File Yes November 27, 2022 7:48am Name of Medical Power of Throat Cutter Khadijah Clements-s on November 27, 2022 7:48am Name of Medical Power of Throat Cutter KHADIJAH November 30, 2022 11:31am Advance Directives Yes November 27 7:48am Living Will Yes November 30, 2022 11:31am Power of Throat Cutter Yes November 30 11:31am Advance Directive Response Recorded Date/ Time Advance Directives Yes March 10:01am Living Will Yes March 29 10:01am Power of Throat Cutter Yes March 29, 2023 10:01am Advance Directive Response Recorded Date/ Time Advance Directives Yes March 11:01am Living Will Yes March 29, 023 11:01am Power of Throat Cutter Yes March 29, 2023 11:01am Advance Directive Response Recorded Date/ Time Living Will Yes March 29 023 11:01am Power of Throat Cutter Yes March 29, 2023 11:01am Living Will Yes February 27 10:04am Power of Throat Cutter Yes February 28, 2024 10:04am Advance Directives Yes February 28, 2024 10:04am Living Will No April 30 11:11am Power of Throat Cutter No April 30, 2024 11:11am Living Will Yes July 17, 2024 1:20pm Power of Throat Cutter Yes July 17 1:20pm Name of Medical Power of Throat Cutter ON FILE July 17, 2024 1:20pm Living Will Yes April 11 024 2:38pm Power of Throat Cutter Yes April 11, 2024 2:38pm Name of Medical Power of Throat Cutter VIVEK CLEMENTS April 11, 2024 2:38pm Advance Directive Response Recorded Date/ Time Living Will Yes March 29 11:01am Do you have a Healthcare Power of Throat Cutter? Yes March 29, 2023 11:01am Living Will Yes February 27 10:04am Do you have a Healthcare Power of Throat Cutter? Yes February 28, 2024 10:04am Advance Directives Yes February 28, 2024 10:04am Living Will No April 30 11:11am Do you have a Healthcare Power of Throat Cutter? No April 30, 2024 11:11am Living Will Yes July 17, 2024 1:20pm Do you have a Healthcare Power of Throat Cutter? Yes July 17, 2024 1:20pm Name of Medical Power of Throat Cutter ON FILE July 17, 2024 1:20pm Living Will Yes April 11 024 2:38pm Do you have a Healthcare Power of Throat Cutter? Yes April 11, 2024 2:38pm Name of Medical Power of Throat Cutter VIVEK CLEMENTS April 11, 2024 2:38pm Living Will No July 27, 2024 9:48am Do you have a Healthcare Power of Throat Cutter? No July 27, 2024 9:48am Advance Directive Response Recorded Date/ Time Living Will Yes March 29 11:01am Do you have a Healthcare Power of Throat Cutter? Yes November 27th, 2023 11:01am Living Will Yes February 27 10:04am Do you have a Healthcare Power of Throat Cutter? Yes February 28, 2024 10:04am Advance Directives Yes February 28, 2024 10:04am Living Will No April 30 11:11am Do you have a Healthcare Power of Throat Cutter? No April 30, 2024 11:11am Living Will Yes July 17, 2024 1:20pm Do you have a Healthcare Power of Throat Cutter? Yes July 17, 2024 1:20pm Name of Medical Power of Throat Cutter ON FILE July 17, 2024 1:20pm Living Will Yes April 11 2:38pm Do you have a Healthcare Power of Throat Cutter? Yes April 11, 2024 2:38pm Name of Medical Power of Throat Cutter VIVEK CLEMENTS April 11, 2024 2:38pm Living Will Yes July 27, 2024 5:11pm Do you have a Healthcare Power of Throat Cutter? Yes July 27, 2024 5:11pm Name of Medical Power of Throat Cutter Khadijah Clements July 27, 2024 5:11pm Advance Directive Response Recorded Date/ Time Living Will Yes March 29 11:01am Do you have a Healthcare Power of Throat Cutter? Yes March 29, 2023 11:01am Living Will Yes February 27 10:04am Do you have a Healthcare Power of Throat Cutter? Yes February 28, 2024 10:04am Advance Directives Yes February 28, 2024 10:04am Living Will No April 30 11:11am Do you have a Healthcare Power of Throat Cutter? No April 30, 2024 11:11am Living Will Yes July 17, 2024 1:20pm Do you have a Healthcare Power of Throat Cutter? Yes July 17, 2024 1:20pm Name of Medical Power of Throat Cutter ON FILE July 17, 2024 1:20pm Living Will Yes April 11 2:38pm Do you have a Healthcare Power of Throat Cutter? Yes April 11, 2024 2:38pm Name of Medical Power of Throat Cutter VIVEK CLEMENTS April 11, 2024 2:38pm Living Will Yes July 27, 2024 5:11pm Do you have a Healthcare Power of Throat Cutter? Yes July 27, 2024 5:11pm Name of Medical Power of Throat Cutter Khadijah Clements July 27, 2024 5:11pm Living Will Yes August 09, 2024 4:36pm Do you have a Healthcare Power of Throat Cutter? Yes August 09, 2024 4:36pm Name of Medical Power of Throat Cutter ? August 09, 2024 4:36pm Advance Directive Response Recorded Date/ Time Living Will Yes March 29 11:01am Do you have a Healthcare Power of Throat Cutter? Yes March 29, 2023 11:01am Living Will Yes February 27 10:04am Do you have a Healthcare Power of Throat Cutter? Yes February 28, 2024 10:04am Advance Directives Yes February 28, 2024 10:04am Living Will No April 30 11:11am Do you have a Healthcare Power of Throat Cutter? No April 30, 2024 11:11am Living Will Yes July 17, 2024 1:20pm Do you have a Healthcare Power of Throat Cutter? Yes July 17, 2024 1:20pm Name of Medical Power of Throat Cutter ON FILE July 17, 2024 1:20pm Living Will Yes July 27, 2024 5:11pm Do you have a Healthcare Power of Throat Cutter? Yes July 27, 2024 5:11pm Name of Medical Power of Throat Cutter Khadijah Clements July 27, 2024 5:11pm Living Will Yes August 09, 2024 7:50pm Do you have a Healthcare Power of Throat Cutter? Yes August 09, 2024 7:50pm Name of Medical Power of Throat Cutter ? August 09, 2024 7:50pm Advance Directive Response Recorded Date/ Time Living Will Yes March 29 11:01am Do you have a Healthcare Power of Throat Cutter? Yes March 29, 2023 11:01am Living Will Yes February 27 10:04am Do you have a Healthcare Power of Throat Cutter? Yes February 28, 2024 10:04am Advance Directives Yes February 28, 2024 10:04am Living Will Yes July 17, 2024 1:20pm Do you have a Healthcare Power of Throat Cutter? Yes July 17, 2024 1:20pm Name of Medical Power of Throat Cutter ON FILE July 17, 2024 1:20pm Living Will Yes July 27, 2024 5:11pm Do you have a Healthcare Power of Throat Cutter? Yes July 27, 2024 5:11pm Name of Medical Power of Throat Cutter Khadijah Clements July 27, 2024 5:11pm Living Will Yes August 09, 2024 7:50pm Do you have a Healthcare Power of Throat Cutter? Yes August 09, 2024 7:50pm Name of Medical Power of Throat Cutter ? August 09, 2024 7:50pm Advance Directive Response Recorded Date/ Time Living Will Yes March 29 11:01am Do you have a Healthcare Power of Throat Cutter? Yes March 29, 2023 11:01am Living Will Yes July 17, 2024 1:20pm Do you have a Healthcare Power of Throat Cutter? Yes July 17, 2024 1:20pm Name of Medical Power of Throat Cutter ON FILE July 17, 2024 1:20pm Living Will Yes July 27, 2024 5:11pm Do you have a Healthcare Power of Throat Cutter? Yes July 27, 2024 5:11pm Name of Medical Power of Throat Cutter Khadijah Clements July 27, 2024 5:11pm Living Will Yes August 09, 2024 7:50pm Do you have a Healthcare Power of Throat Cutter? Yes August 09, 2024 7:50pm Name of Medical Power of Throat Cutter ? August 09, 2024 7:50pm Advance Directives Yes February 28, 2024 10:04am Reason for Referral Status Reason Specialty Diagnoses / Procedures Referred By Contact Referred To Contact Open Specialty Services Required Cardiac Rehabilitation Diagnoses S/P drug eluting coronary stent placement Coronary artery disease involving [place] coronary artery of [place] heart without angina pectoris Zulma Martini APRN - CNP [address] [place] [id number] Discharge Instructions * Instructions* Zulma Martini APRN - CNP - 06/07/2020 Call your doctor with any medication questions or if you notice any side effects from your medications. If you are unable to fill your medications, please call your Lpc immediately. The office number is located with [...] for 24 hours. GIVE PCI PACKET (FROM KNIFE GRINDER) TO PATIENT Give Coronary Artery Discharge Booklet [...] Cardiac Rehab The Cardiac Rehabilitation Team at [facility] system consists of highly skilled healthcare professionals, including [...] regarding this valuable service please call # [phone] Orientation is available on all Wednesdays at 11:30 am location in the [address] documented in this encounter Assessments Diagnosis S/P drug eluting coronary stent placement- Primary Coronary artery disease involving [place] coronary artery of [place] heart without angina pectoris Abnormal nuclear stress test Other nonspecific abnormal cardiovascular system function study Hospital Course Note Name: Bette Clements Date of Bi rth: 1945 Date of Admission: 06/07/2020 Date of Discharge: 06/07/2020 Admitting physician: Dr. Denis Rodriguez Discharge Attending: Zulma Martini, Primary Care Physician: JULIANO CALABRESE Review of Systems: Review of Systems [...] and urgency. Mus (more content not included)... Chief Complaint and Reason for Visit Chief Complaint 3 M FU 6 M FU 3 M FU EORDER 6 M FU Reason for Visit Coronary artery dise ase Essential (primary) hypertension Insomnia Asthma 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 classification Asthma Essential (primary) hypertension Insomnia Atherosclerotic heart disease of [place] coronary artery without angina pectoris Essential (primary) hypertension Hyperlipidemia History of endovascular stent graft for abdominal aortic aneurysm (AAA) Chief Complaint 3 M FU EORDER 6 M FU injection-Flu 3 M FU Reason for Visit Asthma Essential (primary) hypertension Insomnia Atherosclerotic heart disease of [place] coronary artery without angina pectoris Essential (primary) hypertension Hyperlipidemia History of endovascular stent graft for abdominal aortic aneurysm (AAA) Therapeutic drug monitoring Essential (primary) hypertension Insomnia Chief Complaint injection-Flu 3 M FU 2 WEEK PILL COUNT DISCUSS MEDICATION CAROTID STENOSIS CAROTID US 12/30 Occlusion and stenosis of left carotid artery Reason for Visit Therapeutic drug mon itoring Essential (primary) hypertension Insomnia Insomnia Carotid stenosis, left History of left inguinal hernia repair History of endovascular stent graft for abdominal aortic aneurysm (AAA) Chief Complaint injection-Flu 3 M FU 2 WEEK PILL COUNT DISCUSS MEDICATION CAROTID STENOSIS CAROTID US 12/30 Occlusion and stenosis of left carotid artery AAA 6 M FU Reason for Visit Therapeutic drug mon itoring Essential (primary) hypertension Insomnia Insomnia Carotid stenosis, left History of left inguinal hernia repair History of endovascular stent graft for abdominal aortic aneurysm (AAA) Asthma 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 classification Chief Complaint 3 M FU 2 WEEK PILL COUNT DISCUSS MEDICATION CAROTID STENOSIS CAROTID US 12/30 Occlusion and stenosis of left carotid artery AAA 6 M FU SLEEPING ISSUES 6 M FU 3 M FU Reason for Visit Therapeutic drug mon itoring Essential (primary) hypertension Insomnia Insomnia Carotid stenosis, left History of left inguinal hernia repair History of endovascular stent graft for abdominal aortic aneurysm (AAA) Asthma 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 classification Insomnia Atherosclerotic heart disease of [place] coronary artery without angina pectoris Essential (primary) hypertension Hyperlipidemia History of endovascular stent graft for abdominal aortic aneurysm (AAA) BPH (benign prostatic hyperplasia) Essential (primary) hypertension Insomnia Chief Complaint 2 WEEK PILL COUNT DISCUSS MEDICATION CAROTID STENOSIS CAROTID US 12/30 Occlusion and stenosis of left carotid artery AAA 6 M FU SLEEPING ISSUES 6 M FU 3 M FU SBO Reason for Visit Insomnia Carotid stenosis, left History of left inguinal hernia repair History of endovascular stent graft for abdominal aortic aneurysm (AAA) Asthma 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 classification Insomnia Atherosclerotic heart disease of [place] coronary artery without angina pectoris Essential (primary) hypertension Hyperlipidemia History of endovascular stent graft for abdominal aortic aneurysm (AAA) BPH (benign prostatic hyperplasia) Essential (primary) hypertension Insomnia Complete small bowel obstruction Chief Complaint 2 WEEK PILL COUNT DISCUSS MEDICATION CAROTID STENOSIS CAROTID US 12/30 Occlusion and stenosis of left carotid artery AAA 6 M FU SLEEPING ISSUES 6 M FU 3 M FU SBO SBO Reason for Visit Insomnia Carotid stenosis, left History of left inguinal hernia repair History of endovascular stent graft for abdominal aortic aneurysm (AAA) Asthma 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 classification Insomnia Atherosclerotic heart disease of [place] coronary artery without angina pectoris Essential (primary) hypertension Hyperlipidemia History of endovascular stent graft for abdominal aortic aneurysm (AAA) BPH (benign prostatic hyperplasia) Essential (primary) hypertension Insomnia Partial bowel obstruction AAA (abdominal aortic aneurysm) Asthma BPH (benign prostatic hyperplasia) Coronary artery disease History of colon cancer Insomnia Chief Complaint 2 WEEK PILL COUNT DISCUSS MEDICATION CAROTID STENOSIS CAROTID US 12/30 Occlusion and stenosis of left carotid artery AAA 6 M FU SLEEPING ISSUES 6 M FU 3 M FU SBO SBO SBO LAC Reason for Visit Insomnia Carotid stenosis, left History of left inguinal hernia repair History of endovascular stent graft for abdominal aortic aneurysm (AAA) Asthma 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 classification Insomnia Atherosclerotic heart disease of [place] coronary artery without angina pectoris Essential (primary) hypertension Hyperlipidemia History of endovascular stent graft for abdominal aortic aneurysm (AAA) BPH (benign prostatic hyperplasia) Essential (primary) hypertension Insomnia Partial bowel obstruction AAA (abdominal aortic aneurysm) Asthma BPH (benign prostatic hyperplasia) Coronary artery disease History of colon cancer Insomnia Chief Complaint 2 WEEK PILL COUNT DISCUSS MEDICATION CAROTID STENOSIS CAROTID US 12/30 Occlusion and stenosis of left carotid artery AAA 6 M FU SLEEPING ISSUES 6 M FU 3 M FU SBO SBO SBO LAC SOB Reason for Visit Carotid stenosis, le ft History of left inguinal hernia repair History of endovascular stent graft for abdominal aortic aneurysm (AAA) 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 classification Atherosclerotic heart disease of [place] coronary artery without angina pectoris Essential (primary) hypertension Hyperlipidemia History of endovascular stent graft for abdominal aortic aneurysm (AAA) Essential (primary) hypertension Chief Complaint DISCUSS MEDICATION CAROTID STENOSIS CAROTID US 12/30 Occlusion and stenosis of left carotid artery AAA 6 M FU SLEEPING ISSUES 6 M FU 3 M FU SBO SBO SBO LAC SOB ELEVATED PSA Reason for Visit Carotid stenosis, le ft History of left inguinal hernia repair History of endovascular stent graft for abdominal aortic aneurysm (AAA) 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 classification Atherosclerotic heart disease of [place] coronary artery without angina pectoris Essential (primary) hypertension Hyperlipidemia History of endovascular stent graft for abdominal aortic aneurysm (AAA) Essential (primary) hypertension Chief Complaint CAROTID US 12/30 Occlusion and stenosis of left carotid artery AAA 6 M FU SLEEPING ISSUES 6 M FU 3 M FU SBO SBO SBO LAC SOB ELEVATED PSA PROSTATE CA Reason for Visit Carotid stenosis, le ft History of left inguinal hernia repair History of endovascular stent graft for abdominal aortic aneurysm (AAA) 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 classification Atherosclerotic heart disease of [place] coronary artery without angina pectoris Essential (primary) hypertension Hyperlipidemia History of endovascular stent graft for abdominal aortic aneurysm (AAA) Essential (primary) hypertension Chief Complaint 3 M FU SBO SBO SBO LAC SOB ELEVATED PSA PROSTATE CA 3 M FU R 3RD TOE INJURY MALIGNANT NEOPLASM OF PROSTATE RIGHT HAND room 1 hypertension Reason for Visit Essential (primary) hypertension Insomnia Insomnia Essential (primary) hypertension Insomnia Prostate CA Trigger finger Chief Complaint SBO SBO SBO LAC SOB ELEVATED PSA PROSTATE CA 3 M FU R 3RD TOE INJURY MALIGNANT NEOPLASM OF PROSTATE RIGHT HAND room 1 hypertension 6 M FU CHEST PAIN, NSTEMI Reason for Visit Insomnia Essential (primary) hypertension Insomnia Prostate CA Trigger finger 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 classification NSTEMI, initial episode of care Chief Complaint SBO SBO SBO LAC SOB ELEVATED PSA PROSTATE CA 3 M FU R 3RD TOE INJURY MALIGNANT NEOPLASM OF PROSTATE RIGHT HAND room 1 hypertension 6 M FU CHEST PAIN, NSTEMI CHEST PAIN, NSTEMI CHEST PAIN, NSTEMI CHEST PAIN, NSTEMI CHEST PAIN, NSTEMI Reason for Visit Insomnia Essential (primary) hypertension Insomnia Prostate CA Trigger finger 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 classification Acute non-ST elevation myocardial infarction (NSTEMI) Chronic kidney disease, stage 3b Hypokalemia NSTEMI, initial episode of care Atherosclerotic heart disease of [place] coronary artery without angina pectoris Essential (primary) hypertension History of coronary artery stent placement Hyperlipidemia Old inferior wall myocardial infarction Prostate CA 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 classification History of endovascular stent graft for abdominal aortic aneurysm (AAA) Chief Complaint LAC SOB ELEVATED PSA PROSTATE CA 3 M FU R 3RD TOE INJURY MALIGNANT NEOPLASM OF PROSTATE RIGHT HAND room 1 hypertension 6 M FU CHEST PAIN, NSTEMI CHEST PAIN, NSTEMI CHEST PAIN, NSTEMI CHEST PAIN, NSTEMI CHEST PAIN, NSTEMI S/P [facility] NSTEMI 11/16/22 NSTEMI Reason for Visit Insomnia Trigger finger Acute non-ST elevation myocardial infarction (NSTEMI) NSTEMI, initial episode of care History of endovascular stent graft for abdominal aortic aneurysm (AAA) Hypokalemia Acute non-ST elevation myocardial infarction (NSTEMI) History of endovascular stent graft for abdominal aortic aneurysm (AAA) Chief Complaint SOB ELEVATED PSA PROSTATE CA 3 M FU R 3RD TOE INJURY MALIGNANT NEOPLASM OF PROSTATE RIGHT HAND room 1 hypertension 6 M FU CHEST PAIN, NSTEMI CHEST PAIN, NSTEMI CHEST PAIN, NSTEMI CHEST PAIN, NSTEMI CHEST PAIN, NSTEMI S/P H NSTEMI 11/16/22 NSTEMI GENERAL ILLNESS Reason for Visit Insomnia Trigger finger Acute non-ST elevation myocardial infarction (NSTEMI) NSTEMI, initial episode of care History of endovascular stent graft for abdominal aortic aneurysm (AAA) Hypokalemia Acute non-ST elevation myocardial infarction (NSTEMI) History of endovascular stent graft for abdominal aortic aneurysm (AAA) Chief Complaint PROSTATE CA 3 M FU R 3RD TOE INJURY MALIGNANT NEOPLASM OF PROSTATE RIGHT HAND room 1 hypertension 6 M FU CHEST PAIN, NSTEMI CHEST PAIN, NSTEMI CHEST PAIN, NSTEMI CHEST PAIN, NSTEMI AM EKG CHEST PAIN, NSTEMI S/P [facility] NSTEMI 11/16/22 NSTEMI GENERAL ILLNESS Amb Documentation CONSULT - PROSTATE EORDER S/P [facility] PCI 11/27/22 Reason for Visit Insomnia Trigger finger Acute non-ST elevation myocardial infarction (NSTEMI) Atherosclerotic heart disease of [place] coronary artery without angina pectoris NSTEMI, initial episode of care History of endovascular stent graft for abdominal aortic aneurysm (AAA) Hypokalemia Acute non-ST elevation myocardial infarction (NSTEMI) Atherosclerotic heart disease of [place] coronary artery without angina pectoris History of endovascular stent graft for abdominal aortic aneurysm (AAA) [id number] Acute non-ST elevation myocardial infarction (NSTEMI) Atherosclerotic heart disease of [place] coronary artery without angina pectoris SOB (shortness of breath) History of endovascular stent graft for abdominal aortic aneurysm (AAA) Chief Complaint MALIGNANT NEOPLASM O F PROSTATE RIGHT HAND room 1 hypertension 6 M FU CHEST PAIN, NSTEMI CHEST PAIN, NSTEMI CHEST PAIN, NSTEMI CHEST PAIN, NSTEMI AM EKG CHEST PAIN, NSTEMI S/P [facility] NSTEMI 11/16/22 NSTEMI GENERAL ILLNESS Amb Documentation CONSULT - PROSTATE EORDER S/P [facility] PCI 11/27/22 DISCUSS TX 1 Y FU Malignant neoplasm of prostate . HEAD COLD/SINUS CONCERNS Reason for Visit Trigger finger Acute non-ST elevation myocardial infarction (NSTEMI) Atherosclerotic heart disease of [place] coronary artery without angina pectoris NSTEMI, initial episode of care History of endovascular stent graft for abdominal aortic aneurysm (AAA) Hypokalemia Acute non-ST elevation myocardial infarction (NSTEMI) Atherosclerotic heart disease of [place] coronary artery without angina pectoris History of endovascular stent graft for abdominal aortic aneurysm (AAA) [id number] Atherosclerotic heart disease of [place] coronary artery without angina pectoris HFrEF (heart failure with reduced ejection fraction) SOB (shortness of breath) History of endovascular stent graft for abdominal aortic aneurysm (AAA) [id number] Atherosclerotic heart disease of [place] coronary artery without angina pectoris HFrEF (heart failure with reduced ejection fraction) SOB (shortness of breath) History of endovascular stent graft for abdominal aortic aneurysm (AAA) Asthmatic bronchitis with exacerbation Chief Complaint 1 Y FU Malignant neoplasm of prostate HEAD COLD/SINUS CONCERNS OTV OTV OTV OTV Amb Documentation . 1 MONTH F/U POST RT PROSTATE RIGHT HAND E ORDERS 6 m fu/surgery clearance INT LABS Reason for Visit Atherosclerotic hear t disease of [place] coronary artery without angina pectoris HFrEF (heart failure with reduced ejection fraction) SOB (shortness of breath) History of endovascular stent graft for abdominal aortic aneurysm (AAA) Asthmatic bronchitis with exacerbation [id number] Trigger finger, right middle finger Trigger finger, right ring finger Preoperative evaluation to rule out surgical contraindication Prostate CA Hypertension Insomnia Chief Complaint 1 Y FU Malignant neoplasm of prostate HEAD COLD/SINUS CONCERNS OTV OTV OTV OTV Amb Documentation . 1 MONTH F/U POST RT PROSTATE RIGHT HAND E ORDERS 6 m fu/surgery clearance INT LABS Aneurysm of the ascending aorta, without rupture ROUTINE VASCULAR - AAA Reason for Visit Atherosclerotic hear t disease of [place] coronary artery without angina pectoris HFrEF (heart failure with reduced ejection fraction) SOB (shortness of breath) History of endovascular stent graft for abdominal aortic aneurysm (AAA) Asthmatic bronchitis with exacerbation [id number] Trigger finger, right middle finger Trigger finger, right ring finger Preoperative evaluation to rule out surgical contraindication Prostate CA Hypertension Insomnia Carotid stenosis, left History of endovascular stent graft for abdominal aortic aneurysm Chief Complaint Malignant neoplasm o f prostate HEAD COLD/SINUS CONCERNS OTV OTV OTV OTV Amb Documentation . 1 MONTH F/U POST RT PROSTATE RIGHT HAND E ORDERS 6 m fu/surgery clearance INT LABS Aneurysm of the ascending aorta, without rupture ROUTINE VASCULAR - AAA 6 M FU STENOSIS OF LEFT CAROTID ARTERY right hand Reason for Visit Asthmatic bronchitis with exacerbation [id number] Trigger finger, right middle finger Trigger finger, right ring finger Preoperative evaluation to rule out surgical contraindication Prostate CA Hypertension Insomnia Carotid stenosis, left History of endovascular stent graft for abdominal aortic aneurysm Bronchiectasis Trigger finger, right middle finger Trigger finger, right ring finger Chief Complaint 6 m fu/surgery clear ance INT LABS Aneurysm of the ascending aorta, without rupture ROUTINE VASCULAR - AAA 6 M FU STENOSIS OF LEFT CAROTID ARTERY right hand 6 M FU Reason for Visit Preoperative evaluat ion to rule out surgical contraindication Prostate CA Hypertension Insomnia Carotid stenosis, left History of endovascular stent graft for abdominal aortic aneurysm Bronchiectasis Trigger finger, right middle finger Trigger finger, right ring finger Atherosclerotic heart disease of [place] coronary artery without angina pectoris HFrEF (heart failure with reduced ejection fraction) History of endovascular stent graft for abdominal aortic aneurysm (AAA) Chief Complaint Admit Date Bleeding hemorrhoid March 21, 2024 1:25pm sob April 11, 2024 1:25pm 6 M FU April 19, 2024 12:55pm walk test April 21, 2024 8:56am sob April 30, 2024 10:06am AAA CAROTID STENOSIS May 04, 2024 7 :47am Establish Care, New pt from Dr. Marcos myles 2024 10:53am Other nonspecific abnormal finding of [place] June 06, 2024 1:14pm 5 m fu June 14, 2024 1:41pm Reason for Visit Admit Date Abdominal pain March 21, 2024 1:25pm Personal history of other ma lignant neoplasm of large intestine March 21, 2024 1:25pm Rectal bleeding March 21, 2024 1:25pm BPH (benign prostatic hyperplasia) Decem 2023 12:55pm COPD (chronic obstructive pulmonary dise ase) April 19, 2024 12:55pm Hypertension April 19, 2024 12:55pm Insomnia April 19, 2024 12:55pm Hypokalemia April 19, 2024 12:55pm Carotid stenosis, left May 11, 2024 10:53am History of endovascular sten t graft for abdominal aortic aneurysm May 11, 2024 10:53am Multiple nodules of lung June 14, 2024 1:41pm Hypoxia June 14, 2024 1:41pm 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 June 14, 2024 1:41pm Personal history of other ma lignant neoplasm of large intestine July 18, 2024 11:49am Rectal bleeding July 18, 2024 11: 49am Chief Complaint Admit Date sob April 11, 2024 1:25pm 6 M FU April 19, 2024 12:55pm walk test April 21, 2024 8:56am sob April 30, 2024 10:06am AAA CAROTID STENOSIS May 04, 2024 7 :47am Establish Care, New pt from Dr. Marcos Rasmussen [facility] 2024 10:53am Other nonspecific abnormal finding of [place] June 06, 2024 1:14pm 5 m fu June 14, 2024 1:41pm PREOP July 18, 2024 12: 30pm LACTIC ACID ELEVATION AND DEHYDRATION [facility] 2024 4:08pm Reason for Visit Admit Date BPH (benign prostatic hyperplasia) Decem 2023 12:55pm COPD (chronic obstructive pulmonary dise ase) April 19, 2024 12:55pm Hypertension April 19, 2024 12:55pm Insomnia April 19, 2024 12:55pm Hypokalemia April 19, 2024 12:55pm Carotid stenosis, left May 11, 2024 10:53am History of endovascular sten t graft for abdominal aortic aneurysm May 11, 2024 10:53am Multiple nodules of lung June 14, 2024 1:41pm Hypoxia June 14, 2024 1:41pm 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 June 14, 2024 1:41pm Personal history of other ma lignant neoplasm of large intestine July 18, 2024 11:49am Rectal bleeding July 18, 2024 11: 49am Dehydration July 27, 2024 4:0 8pm Elevated lactic acid level July 27, 2 025 4:08pm Chief Complaint Admit Date sob April 11, 2024 1:25pm 6 M FU April 19, 2024 12:55pm walk test April 21, 2024 8:56am sob April 30, 2024 10:06am AAA CAROTID STENOSIS May 04, 2024 7 :47am Establish Care, New pt from Dr. Marcos myles 2024 10:53am Other nonspecific abnormal finding of [facility] June 06, 2024 1:14pm 5 m fu June 14, 2024 1:41pm PREOP July 18, 2024 12: 30pm LACTIC ACID ELEVATION AND DEHYDRATION [facility] 2024 4:08pm LACTIC ACID ELEVATION AND DEHYDRATION [facility] 2024 1:59pm Chief Complaint Admit Date sob April 11, 2024 1:25pm 6 M FU April 19, 2024 12:55pm walk test April 21, 2024 8:56am sob April 30, 2024 10:06am AAA CAROTID STENOSIS May 04, 2024 7 :47am Bety Castano, New pt from Dr. Marcos myles 2024 10:53am Other nonspecific abnormal finding of [facility] June 06, 2024 1:14pm 5 m June 14, 2024 1:41pm Rectal bleeding July 18, 2024 7:0 0am PREOP July 18, 2024 12: 30pm LACTIC ACID ELEVATION AND DEHYDRATION [facility] 2024 4:08pm LACTIC ACID ELEVATION AND DEHYDRATION [facility] 2024 1:59pm Hospital August 02, 2024 9:53 am E-ORDER August 02, 2024 10:4 5am GI BLEED August 09, 2024 5:58 pm Reason for Visit Admit Date BPH (benign prostatic hyperplasia) Decem 2023 12:55pm COPD (chronic obstructive pulmonary dise ase) April 19, 2024 12:55pm Hypertension April 19, 2024 12:55pm Insomnia April 19, 2024 12:55pm Hypokalemia April 19, 2024 12:55pm Carotid stenosis, left May 11, 2024 10:53am History of endovascular sten t graft for abdominal aortic aneurysm May 11, 2024 10:53am Multiple nodules of lung June 14, 2024 1:41pm Hypoxia June 14, 2024 1:41pm 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 June 14, 2024 1:41pm Personal history of other ma lignant neoplasm of large intestine July 18, 2024 11:49am Rectal bleeding July 18, 2024 11: 49am Dehydration July 27, 2024 4:0 8pm Elevated lactic acid level July 27, 4:08pm Abnormal abdominal CT scan August 02 9:53am Radiation proctitis August 02, 2024 9:53 am Rectal bleeding August 02, 2024 9:53 am Chief Complaint Admit Date 6 M FU April 19, 2024 12:55pm walk test April 21, 2024 8:56am sob April 30, 2024 10:06am AAA CAROTID STENOSIS May 04, 2024 7 :47am Establish Care, New pt from Dr. Marcos myles 2024 10:53am Other nonspecific abnormal finding of [place] June 06, 2024 1:14pm 5 m fu June 14, 2024 1:41pm Rectal bleeding July 18, 2024 7:0 0am PREOP July 18, 2024 12: 30pm LACTIC ACID ELEVATION AND DEHYDRATION [facility] 2024 4:08pm LACTIC ACID ELEVATION AND DEHYDRATION [facility] 2024 1:59pm Hospital August 02, 2024 9:53 am E-ORDER August 02, 2024 10:4 5am GI BLEED August 09, 2024 7:03 pm GI BLEED August 09, 2024 8:34 pm GI BLEED August 10, 2024 2:5 2pm GI BLEED August 10, 2024 5:0 8pm GI BLEED August 10, 2024 5:0 9pm Reason for Visit Admit Date BPH (benign prostatic hyperplasia) Decem 2023 12:55pm COPD (chronic obstructive pulmonary dise ase) April 19, 2024 12:55pm Hypertension April 19, 2024 12:55pm Insomnia April 19, 2024 12:55pm Hypokalemia April 19, 2024 12:55pm Carotid stenosis, left May 11, 2024 10:53am History of endovascular sten t graft for abdominal aortic aneurysm May 11, 2024 10:53am Multiple nodules of lung June 14, 2024 1:41pm Hypoxia June 14, 2024 1:41pm 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 June 14, 2024 1:41pm Personal history of other ma lignant neoplasm of large intestine July 18, 2024 11:49am Rectal bleeding July 18, 2024 11: 49am Dehydration July 27, 2024 4:0 8pm Elevated lactic acid level July 27 4:08pm Abnormal abdominal CT scan August 02 9:53am Radiation proctitis August 02, 2024 9:53 am Rectal bleeding August 02, 2024 9:53 am Angiodysplasia of colon August 10, 2024 5:09pm Personal history of other ma lignant neoplasm of large intestine August 10, 2024 5:09pm Rectal bleeding August 10, 2024 5:0 9pm Chief Complaint Admit Date Establish Care, New pt from Dr. Marcos myles 2024 10:53am Other nonspecific abnormal finding of [facility] June 06, 2024 1:14pm 5 [facility] June 14, 2024 1:41pm Rectal bleeding July 18, 2024 7:0 0am PREOP July 18, 2024 12: 30pm LACTIC ACID ELEVATION AND DEHYDRATION [facility] 2024 4:08pm LACTIC ACID ELEVATION AND DEHYDRATION [facility] 2024 1:59pm Hospital August 02, 2024 9:53 am E-ORDER August 02, 2024 10:4 5am GI BLEED August 09, 2024 7:03 pm GI BLEED August 09, 2024 8:34 pm PREOP August 10, 2024 7:5 1am GI BLEED August 10, 2024 2:5 2pm GI BLEED August 10, 2024 5:0 8pm GI BLEED August 10, 2024 5:0 9pm GI BLEED August 11, 2024 12: 36pm Other nonspecific abnormal finding of [facility] August 31, 2024 1:20pm Reason for Visit Admit Date Carotid stenosis, left May 11, 2024 10:53am History of endovascular sten t graft for abdominal aortic aneurysm May 11, 2024 10:53am Multiple nodules of lung June 14, 2024 1:41pm Hypoxia June 14, 2024 1:41pm 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 June 14, 2024 1:41pm Personal history of other ma lignant neoplasm of large intestine July 18, 2024 11:49am Rectal bleeding July 18, 2024 11: 49am Dehydration July 27, 2024 4:0 8pm Elevated lactic acid level July 27, 2 025 4:08pm Abnormal abdominal CT scan August 02 9:53am Radiation proctitis August 02, 2024 9:53 am Rectal bleeding August 02, 2024 9:53 am Angiodysplasia of colon August 10, 2024 5:09pm Personal history of other ma lignant neoplasm of large intestine August 10, 2024 5:09pm Rectal bleeding August 10, 2024 5:0 9pm Chief Complaint Admit Date Other nonspecific abnormal finding of [facility] June 06, 2024 1:14pm 5 m fu June 14, 2024 1:41pm Rectal bleeding July 18, 2024 7:0 0am PREOP July 18, 2024 12: 30pm LACTIC ACID ELEVATION AND DEHYDRATION [facility] 2024 4:08pm LACTIC ACID ELEVATION AND DEHYDRATION [facility] 2024 1:59pm Hospital August 02, 2024 9:53 am E-ORDER August 02, 2024 10:4 5am GI BLEED August 09, 2024 7:03 pm GI BLEED August 09, 2024 8:34 pm PREOP August 10, 2024 7:5 1am GI BLEED August 10, 2024 2:5 2pm GI BLEED August 10, 2024 5:0 8pm GI BLEED August 10, 2024 5:0 9pm GI BLEED August 11, 2024 12: 36pm Other nonspecific abnormal finding of [facility] August 31, 2024 1:20pm 3 M FU September 27, 2024 2:06p m Reason for Visit Admit Date Multiple nodules of lung June 14, 2024 1:41pm Hypoxia June 14, 2024 1:41pm 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 June 14, 2024 1:41pm Personal history of other ma lignant neoplasm of large intestine July 18, 2024 11:49am Rectal bleeding July 18, 2024 11: 49am Dehydration July 27, 2024 4:0 8pm Elevated lactic acid level July 27, 025 4:08pm Abnormal abdominal CT scan August 02 9:53am Radiation proctitis August 02, 2024 9:53 am Rectal bleeding August 02, 2024 9:53 am Angiodysplasia of colon August 10, 2024 5:09pm Personal history of other ma lignant neoplasm of large intestine August 10, 2024 5:09pm Rectal bleeding August 10, 2024 5:0 9pm Additional Source Comments (unrecognized sect ion and content) No Status Records FoundNo Status Records FoundNo Status Records FoundNo Status Records Found INFORMATION SOURCE (unrecogn ized section and content) DATE CREATED AUTHOR 06/21/2019 [facility] DATE CREATED AUTHOR AUTHOR'S ORGANIZ ATION 06/12/2020 [facility] DATE CREATED AUTHOR AUTHOR'S ORGANIZ ATION 07/14/2022 [facility] DATE CREATED AUTHOR AUTHOR'S ORGANIZ ATION 10/03/2024 [facility] Goals (unrecognized section and content) Goals may be documented in a n alternate sectionGoals may be documented in an alternate sectionGoals may be documented in an alternate sectionGoals may be documented in an alternate sectionGoals may be documented in an alternate sectionGoals may be documented in an alternate sectionGoals may be documented in an alternate sectionGoals may be documented in an alternate sectionGoals may be documented in an alternate sectionGoals may be documented in an alternate sectionGoals may be documented in an alternate sectionGoals may be documented in an alternate sectionGoals may be documented in an alternate section Care Teams (unrecognized sec tion and content) Team Status: Active Member Role Status Dates Dr. Juliano Calabrese MD Family Provider Active Dr. Spenser Sanchez MD Primary Care Provider Active Team Status: Inactive Member Role Status Dates Dr. Spenser Sanchez MD Primary Care Provider, Refer ring Provider Active Monalisa Lyon CATALYST RECOVERY OPERATOR, CATALYST RECOVERY OPERATOR-C Attending Provider Active Team Status: Inactive Member Role Status Dates Dr. Spenser Sanchez MD Primary Care P bryon, Attending Provider, Referring Provider Active Team Status: Inactive Member Role Status Dates Dr. Spenser Sanchez MD Primary Care Provider Active Monalisa Lyon NP, CATALYST RECOVERY OPERATOR-C Attending Provider, Referrin g Provider Active Team Status: Inactive Member Role Status Dates Dr. Spenser Sanchez MD Primary Care Provider, Refer ring Provider Active Dr. Sawyer Rodríguez MD Attending Provider Active Team Status: Inactive Member Role Status Dates Dr. Spenser Sanchez MD Primary Care Provider, Refer ring Provider Active FLORA Szymanski Attending Provider Active Team Status: Active Member Role Status Dates Dr. Spenser Sanchez MD Primary Care Provider Active Dr. Sawyer Rodríguez MD Attending Provider Active Team Status: Inactive Member Role Status Dates Dr. Spenser Sanchez MD Primary Care Provider Active Dr. Sawyer Rodríguez MD Attending Provider Active Team Status: Active Member Role Status Dates Dr. Spenser Sanchez MD Primary Care Provider Active Dr. Sawyer Rodríguez MD Attending Provider, Referring Provider Active Team Status: Inactive Member Role Status Dates Dr. Spenser Sanchez MD Primary Care Provider Active Dr. Sawyer Rodríguez MD Attending Provider, Referring Provider Active Team Status: Inactive Member Role Status Dates Dr. Spenser Sanchez MD Primary Care Provider, Refer ring Provider Active Cody Espinoza CATALYST RECOVERY OPERATOR, CATALYST RECOVERY OPERATOR-C Attending Provider Active Biostatistics Manager Relationship Specialty Start Date End Date Spenser Sanchez MD [address] [place] [address] PCP - General Internal Medicine 07/10/22 Team Status: Active Member Role Status Dates Dr. Spenser Sanchez MD Primary Care Provider Active Dr. Barney Eli MD Emergency Provider Active Dr. Robel Figueredo MD Admit Provider, Attending Provi camelia Active Team Status: Active Member Role Status Dates Dr. Spenser Sanchez MD Primary Care Provider Active Dr. Barney Eli MD Emergency Provider Active Dr. Robel Figueredo MD Admit Provider, Other Provider Active Dr. Nick Maguire MD Attending Provider Active Team Status: Inactive Member Role Status Dates Dr. Spenser Sanchez MD Primary Care Provider Active Dr. Barney Eli MD Emergency Provider Active Dr. Robel Figueredo MD Admit Provider, Other Provider Active Dr. Tiki Saldivar MD Attending Provider Active Team Status: Active Member Role Status Dates Dr. Spenser Sanchez MD Primary Care Provider Active Dr. Barney Eli MD Emergency Provider Active Dr. Robel Figueredo MD Admit Provider, Other Provider Active Dr. Tiki Saldivar MD Attending Provider, Other Provid er Active Team Status: Inactive Member Role Status Dates Dr. Spenser Sanchez MD Primary Care Provider Active Dr. Nanette Jose MD Emergency Provider Active Team Status: Inactive Member Role Status Dates Dr. Spenser Sanchez MD Primary Care Provider Active Dr. Nanette Jose MD Attending Provider, Emergency Provider Active Team Status: Active Member Role Status Dates Dr. Spenser Sanchez MD Primary Care Provider Active Dr. rAen Montaño MD Attending Provider, Referr ing Provider Active Team Status: Inactive Member Role Status Dates Dr. Spenser Sanchez MD Primary Care Provider Active Dr. Aren Montaño MD Attending Provider, Referr ing Provider Active Team Status: Inactive Member Role Status Dates Dr. Spenser Sanchez MD Primary Care Provider, Refer ring Provider Active Dr. Yifan Heard DO Attending Provider Active Team Status: Inactive Member Role Status Dates Dr. Spenser Sanchez MD Primary Care Provider Active Dr. Christiano Steinberg MD Attending Provider Active Team Status: Inactive Member Role Status Dates Dr. Spenser Sanchez MD Primary Care Provider Active Dr. Vito Lepe MD Attending Provider, Emergency Provider Active Team Status: Inactive Member Role Status Dates Dr. Spenser Sanchez MD Primary Care Provider Active Dr. Thomas Oropeza MD Emergency Provider Active Team Status: Inactive Member Role Status Dates Dr. Spenser Sanchez MD Primary Care Provider, Refer ring Provider Active Dr. Darryn Kessler MD Attending Provider Active Team Status: Inactive Member Role Status Dates Dr. Spenser Sanchez MD Primary Care Provider Active Dr. Thomas Oropeza MD Attending Provider, Emergency Pro vider Active Team Status: Active Member Role Status Dates Dr. Spenser Sanchez MD Primary Care Provider Active Dr. Rafa Hernandez DO Emergency Provider Active Dr. Delma Gonsalves MD Admit Provider, Attending Provider, Referring Provider Active Team Status: Active Member Role Status Dates Dr. Spenser Sanchez MD Primary Care Provider Active Dr. Rafa Hernandez , Emergency Provider Active Dr. Delma Gonsalves MD Admit Provider, Referring Provider, Other Provider Active Dr. Heri Ewing , DO Other Provider Active Dr. Bethel Gallegos MD Attending Provider, Other Provid er Active Dr. Good Morse MD Other Provider Active Team Status: Active Member Role Status Dates Dr. Spenser Sanchez MD Primary Care Provider Active Dr. Rafa Hernandez DO Emergency Provider Active Dr. Delma Gonsalves MD Admit Provider, Referring Provider, Other Provider Active Dr. Heri Ewing DO Attending Provider, Other Provid er Active Dr. Bethel Gallegos MD Other Provider Active Dr. Good Morse MD Other Provider Active Team Status: Inactive Member Role Status Dates Dr. Spenser Sanchez MD Primary Care Provider Active Dr. Rafa Hernandez DO Emergency Provider Active Dr. Delma Gonsalves MD Admit Provider, Referring Provider, Other Provider Active Dr. Heri Ewing DO Attending Provider Active Dr. Bethel Gallegos MD Other Provider Active Dr. Good Morse MD Other Provider Active Team Status: Active Member Role Status Dates Dr. Spenser Sanchez MD Primary Care Provider Active Dr. Rafa Hernandez DO Emergency Provider Active Dr. Delma Gonsalves MD Admit Provider, Other Provider Active Dr. Heri Ewing DO Attending Provider, Other Provid er Active Dr. Bethel Gallegos MD Other Provider Active Dr. Good Morse MD Other Provider Active Team Status: Inactive Member Role Status Dates Dr. Spenser Sanchez MD Primary Care Provider, Refer ring Provider Active Sara Fabian PA, PA Attending Provider Active Team Status: Inactive Member Role Status Dates Dr. Spenser Sanchez MD Primary Care Provider Active Dr. Christiano Steinberg MD Attending Provider, Referring Pro vider Active Team Status: Active Member Role Status Dates Dr. Spenser Sanchez MD Primary Care Provider Active Dr. Joseph Manzano DO Emergency Provider Active Team Status: Inactive Member Role Status Dates Dr. Spenser Sanchez MD Primary Care Provider, Refer ring Provider Active Amy Morris CATALYST RECOVERY OPERATOR, CATALYST RECOVERY OPERATOR-C Attending Provider Active Team Status: Active Member Role Status Dates Dr. Spenser Sanchez MD Primary Care Provider Active Dr. Christiano Steinberg MD Attending Provider Active Team Status: Inactive Member Role Status Dates Dr. Spenser Sanchez MD Primary Care Provider, Refer ring Provider Active Dr. Marshall Briscoe DO Attending Provider Active Team Status: Active Member Role Status Dates Dr. Spenser Sanchez MD Primary Care Provider Active Nadiya Yepez LPN Attending Provider Active Team Status: Active Member Role Status Dates Dr. Spenser Sanchez MD Primary Care Provider Active Dr. Christiano Steinebrg MD Attending Provider Active Dr. Delma Gonsalves MD Referring Provider Active Team Status: Inactive Member Role Status Dates Dr. Spenser Sanchez MD Primary Care Provider Active Dr. Joseph Manzano DO Attending Provider, Emergency Provider Active Team Status: Inactive Member Role Status Dates Dr. Spenser Sanchez MD Primary Care Provider, Refer ring Provider Active Dr. Christiano Steinberg MD Attending Provider Active Team Status: Inactive Member Role Status Dates Dr. Spenser Sanchez MD Primary Care Provider Active Dr. Marshall Briscoe DO Attending Provider Active Dr. Aren Montaño MD Referring Provider Active Team Status: Active Member Role Status Dates Dr. Spenser Sanchez MD Primary Care Provider Active Dr. Marshall Briscoe DO Attending Provider Active Team Status: Inactive Member Role Status Dates Dr. Spenser Sanchez MD Primary Care Provider, Refer ring Provider Active Phi Baez PA, PA Attending Provider Active Team Status: Inactive Member Role Status Dates Dr. Spenser Sanchez MD Primary Care Provider Active Dr. Marshall Briscoe DO Attending Provider, Referring P rovider Active Team Status: Active Member Role Status Dates Dr. Spenser Sanchez MD Primary Care Provider Active Dr. Marshall Briscoe DO Attending Provider, Referring P rovider Active Team Status: Inactive Member Role Status Dates Dr. Spenser Sanchez MD Primary Care Provider Active Amy Morris CATALYST RECOVERY OPERATOR, CATALYST RECOVERY OPERATOR-C Attending Provider, Referring P rovider Active Team Status: Active Member Role Status Dates Dr. Spenser Sanchez MD Primary Care Provider Active Amy Morris CATALYST RECOVERY OPERATOR, CATALYST RECOVERY OPERATOR-C Attending Provider, Referring P rovider Active Team Status: Active Member Role Status Dates Jeremiah DELACRUZ, CATALYST RECOVERY OPERATOR-C Primary Care Provider Active Team Status: Inactive Member Role Status Dates Dr. Spenser Sanchez MD Primary Care Provider Active Start: March 21, 2024 End: March 21, 2024 Dr. Spenser Sanchez MD Referring Provider Active Start: March 21, 2024 End: March 21, 2024 CODY Orozco Attending Provider Active Start: March 21, 2024 End: March 21, 2024 Team Status: Inactive Member Role Status Dates Dr. Spenser Sanchez MD Primary Care Provider Active Start: March 23, 2024 End: March 23, 2024 Nanette Macdonald NP-C Attending Provider Active Start: March 23, 2024 End: March 23, 2024 CODY Orozco Referring Provider Active Start: March 23, 2024 End: March 23, 2024 Team Status: Inactive Member Role Status Dates Dr. Spenser Sanchez MD Primary Care Provider Active Start: April 11, 2024 End: April 11, 2024 Dr. Xavi Almonte MD Attending Provider Active Sta rt: April 11, 2024 End: April 11, 2024 Dr. Xavi Almonte MD Emergency Provider Active Sta rt: April 11, 2024 End: April 11, 2024 Team Status: Inactive Member Role Status Dates Dr. Spenser Sanchez MD Primary Care Provider Active Start: April 19, 2024 End: April 19, 2024 Dr. Spenser Sanchez MD Attending Provider Active Start: April 19, 2024 End: April 19, 2024 Dr. Spenser Sanchez MD Referring Provider Active Start: April 19, 2024 End: April 19, 2024 Team Status: Inactive Member Role Status Dates Dr. Spenser Sanchez MD Primary Care Provider Active Start: April 21, 2024 End: April 21, 2024 Dr. Spenser Sanchez MD Referring Provider Active Start: April 21, 2024 End: April 21, 2024 KAI BootheC Attending Provider Active Start: April 21, 2024 End: April 21, 2024 Team Status: Inactive Member Role Status Dates Dr. Spenser Sanchez MD Primary Care Provider Active Start: April 30, 2024 End: April 30, 2024 Dr. Faizan Dotson DO Attending Provider Active Start: April 30, 2024 End: April 30, 2024 Dr. Faizan Dotson DO Emergency Provider Active Start: April 30, 2024 End: April 30, 2024 Team Status: Inactive Member Role Status Dates Dr. Spenser Sanchez MD Primary Care Provider Active Start: May 04, 2024 End: May 04, 2024 Dr. Heri Williamson MD Attending Provider Active S tart: May 04, 2024 End: May 04, 2024 Dr. Heri Williamson MD Referring Provider Active S tart: May 04, 2024 End: May 04, 2024 FLORA Holland Other Provider Active Start: 2024 End: May 04, 2024 Team Status: Active Member Role Status Dates Dr. Spenser Sanchez MD Primary Care Provider Active Start: May 04, 2024 Dr. Heri Williamson MD Attending Provider Active S tart: May 04, 2024 FLORA Holland Referring Provider Active Star t: May 04, 2024 Team Status: Inactive Member Role Status Dates Dr. Spenser Sanchez MD Primary Care Provider Active Start: May 11, 2024 End: May 11, 2024 Dr. Spenser Sanchez MD Referring Provider Active Start: May 11, 2024 End: May 11, 2024 FLORA Holland Attending Provider Active Star t: May 11, 2024 End: May 11, 2024 Team Status: Inactive Member Role Status Dates Tiffanie Carr NP-C Attending Provider Active Start: June 06, 2024 End: June 06, 2024 Tiffanie Carr NP-C Referring Provider Active Start: June 06, 2024 End: June 06, 2024 Jeremiah DELACRUZ, CATALYST RECOVERY OPERATOR-C Primary Care Provider Active Start: June 06, 2024 End: June 06, 2024 Team Status: Inactive Member Role Status Dates Dr. Spenser Sanchez MD Referring Provider Active Start: June 14, 2024 End: June 14, 2024 Monalisa Lyon NP, CATALYST RECOVERY OPERATOR-C Attending Provider Active Start: June 14, 2024 End: June 14, 2024 Jeremiah DELACRUZ, CATALYST RECOVERY OPERATOR-C Primary Care Provider Active Start: June 14, 2024 End: June 14, 2024 Team Status: Inactive Member Role Status Dates Dr. Faraz Gonzáles DO Attending Provider Active Start: July 18, 2024 End: July 18, 2024 Jeremiah Lider VSC, CATALYST RECOVERY OPERATOR-C Primary Care Provider Active Start: July 18, 2024 End: July 18, 2024 Jeremiah Lider VSC, CATALYST RECOVERY OPERATOR-C Referring Provider Active S tart: July 18, 2024 End: July 18, 2024 Team Status: Active Member Role Status Dates Dr. Faraz Gonzáles DO Attending Provider Active Start: July 18, 2024 Dr. Faraz Gonzáles DO Other Provider Active St art: July 18, 2024 Jeremiah Lider VSC, CATALYST RECOVERY OPERATOR-C Primary Care Provider Active Start: July 18, 2024 Jeremiah LiNoyolaC, CATALYST RECOVERY OPERATOR-C Referring Provider Active S tart: July 18, 2024 Team Status: Active Member Role Status Dates Jeremiah MckeonNoyolaC, CATALYST RECOVERY OPERATOR-C Primary Care Provider Active Start: July 18, 2024 End: July 18, 2024 Dr. Christiano Steinberg MD Attending Provider Active S tart: July 18, 2024 End: July 18, 2024 Dr. Christiano Steinberg MD Referring Provider Active S tart: July 18, 2024 End: July 18, 2024 Team Status: Active Member Role Status Dates Jeremiah Mckeon VSC, CATALYST RECOVERY OPERATOR-C Primary Care Provider Active Start: July 26, 2024 Nanette Macdonald NP-C Attending Provider Active Start: July 26, 2024 Nanette Macdonald NP-C Referring Provider Active Start: July 26, 2024 Team Status: Active Member Role Status Dates Jeremiah Mckeon VSC, CATALYST RECOVERY OPERATOR-C Primary Care Provider Active Start: July 27, 2024 Dr. Devon Reagan , DO Emergency Provider Activ e Start: July 27, 2024 Dr. Tiki Saldivar MD Admit Provider Active Star t: July 27, 2024 Dr. Tiki Saldivar MD Attending Provider Active Start: July 27, 2024 Team Status: Inactive Member Role Status Dates Jeremiah Lider VSC, CATALYST RECOVERY OPERATOR-C Primary Care Provider Active Start: July 27, 2024 End: July 28, 2024 Dr. Devon Reagan , DO Emergency Provider Activ e Start: July 27, 2024 End: July 28, 2024 Dr. Tiki Saldivar MD Admit Provider Active Star t: July 27, 2024 End: July 28, 2024 Dr. Tiki Saldivar MD Other Provider Active Star t: July 27, 2024 End: July 28, 2024 Dr. Rhys Fontana MD Attending Provider Active Start: July 27, 2024 End: July 28, 2024 Team Status: Active Member Role Status Dates Jeremiah Mckeon VSC, CATALYST RECOVERY OPERATOR-C Primary Care Provider Active Start: July 28, 2024 Dr. Devon Reagan DO Emergency Provider Activ e Start: July 28, 2024 Dr. Tiki Saldivar MD Admit Provider Active Star t: July 28, 2024 Dr. Tiki Saldivar MD Other Provider Active Star t: July 28, 2024 Dr. Rhys Fontana MD Attending Provider Active Start: July 28, 2024 Dr. Rhys Fontana MD Other Provider Active Start: July 28, 2024 Team Status: Inactive Member Role Status Dates Jeremiah Mckeon VSC, CATALYST RECOVERY OPERATOR-C Primary Care Provider Active Start: July 26, 2024 End: July 26, 2024 Nanette Macdonald NP-C Attending Provider Active Start: July 26, 2024 End: July 26, 2024 Nanette Macdonald NP-C Referring Provider Active Start: July 26, 2024 End: July 26, 2024 Team Status: Active Member Role Status Dates Jeremiah Mckeon VSC, CATALYST RECOVERY OPERATOR-C Primary Care Provider Active Start: July 18, 2024 Dr. Yifan Coulter MD Attending Provider Active Start: July 18, 2024 Dr. Yifan Coulter MD Referring Provider Active Start: July 18, 2024 Team Status: Inactive Member Role Status Dates Jeremiah Mckeon VSC, CATALYST RECOVERY OPERATOR-C Primary Care Provider Active Start: August 02, 2024 End: August 02, 2024 Jeremiah STAPLESC, CATALYST RECOVERY OPERATOR-C Referring Provider Active S tart: August 02, 2024 End: August 02, 2024 Nanette Macdonald NP-C Attending Provider Active Start: August 02, 2024 End: August 02, 2024 Team Status: Inactive Member Role Status Dates Jeremiah Mckeon VSC, CATALYST RECOVERY OPERATOR-C Primary Care Provider Active Start: August 02, 2024 End: August 02, 2024 Nanette Torres , CATALYST RECOVERY OPERATOR-C Attending Provider Active Start: August 02, 2024 End: August 02, 2024 Nanette Macdonald CATALYST RECOVERY OPERATOR-C Referring Provider Active Start: August 02, 2024 End: August 02, 2024 Team Status: Inactive Member Role Status Dates Jeremiah Mckeon VSC, CATALYST RECOVERY OPERATOR-C Primary Care Provider Active Start: August 03, 2024 End: August 03, 2024 Addy Luciano VSC, CATALYST RECOVERY OPERATOR-C Attending Provider Active Start: August 03, 2024 End: August 03, 2024 Team Status: Active Member Role Status Dates Jeremiah Mckeon VSC, CATALYST RECOVERY OPERATOR-C Primary Care Provider Active Start: August 09, 2024 Dr. Viral Gutiérrez DO Emergency Provider Active Start : August 09, 2024 Dr. Rhys Fontana MD Admit Provider Active Start: August 09, 2024 Dr. Rhys Fontana MD Attending Provider Active Start: August 09, 2024 Team Status: Active Member Role Status Dates Jeremiah Mckeon VSC, CATALYST RECOVERY OPERATOR-C Primary Care Provider Active Start: August 09, 2024 Dr. Viral Gutiérrez DO Emergency Provider Active Start : August 09, 2024 Dr. Rhys Fontana MD Admit Provider Active Start: August 09, 2024 Dr. Rhys Fontana MD Attending Provider Active Start: August 09, 2024 Dr. Rhys Fontana MD Other Provider Active Start: August 09, 2024 Team Status: Active Member Role Status Dates Jeremiah Mckeon VSC, CATALYST RECOVERY OPERATOR-C Primary Care Provider Active Start: August 09, 2024 Dr. Viral Gutiérrez DO Emergency Provider Active Start : August 09, 2024 Dr. Rhys Fontana MD Admit Provider Active Start: August 09, 2024 Dr. Rhys Fontana MD Other Provider Active Start: August 09, 2024 Dr. Faraz Gonzáles DO Attending Provider Active Start: August 09, 2024 Team Status: Active Member Role Status Dates Jeremiah Mckeon VSC, CATALYST RECOVERY OPERATOR-C Primary Care Provider Active Start: August 10, 2024 Dr. Viral Gutiérrez DO Emergency Provider Active Start : August 10, 2024 Dr. Rhys Fontana MD Admit Provider Active Start: August 10, 2024 Dr. Rhys Fontana MD Other Provider Active Start: August 10, 2024 Dr. Tiki Saldivar MD Other Provider Active Star t: August 10, 2024 Dr. Faraz Gonzáles DO Attending Provider Active Start: August 10, 2024 Team Status: Active Member Role Status Dates Jeremiah Mike DELACRUZ, CATALYST RECOVERY OPERATOR-C Primary Care Provider Active Start: August 10, 2024 Dr. Viral Gutiérrez DO Emergency Provider Active Start : August 10, 2024 Dr. Rhys Fontana MD Admit Provider Active Start: August 10, 2024 Dr. Rhys Fontana MD Other Provider Active Start: August 10, 2024 Dr. Tiki Saldivar MD Attending Provider Active Start: August 10, 2024 Dr. Tiki Saldivar MD Other Provider Active Star t: August 10, 2024 Team Status: Inactive Member Role Status Dates Jeremiah Mike VSC, CATALYST RECOVERY OPERATOR-C Primary Care Provider Active Start: August 10, 2024 End: August 11, 2024 Dr. Viral Gutiérrez DO Emergency Provider Active Start : August 10, 2024 End: August 11, 2024 Dr. Rhys Fontana MD Admit Provider Active Start: August 10, 2024 End: August 11, 2024 Dr. Rhys Fontana MD Other Provider Active Start: August 10, 2024 End: August 11, 2024 Dr. Tiki Saldivar MD Attending Provider Active Start: August 10, 2024 End: August 11, 2024 Team Status: Active Member Role Status Dates Jeremiah Mike DELACRUZ, CATALYST RECOVERY OPERATOR-C Primary Care Provider Active Start: August 09, 2024 Dr. Viral Gutiérrez DO Emergency Provider Active Start : August 09, 2024 Dr. Rhys Fontana MD Admit Provider Active Start: August 09, 2024 Dr. Rhys Fontana MD Referring Provider Active Start: August 09, 2024 Dr. Rhys Fontana MD Other Provider Active Start: August 09, 2024 Dr. Faraz Gonzáles DO Attending Provider Active Start: August 09, 2024 Team Status: Active Member Role Status Dates Jeremiah Mike VSC, CATALYST RECOVERY OPERATOR-C Primary Care Provider Active Start: August 10, 2024 End: August 10, 2024 Dr. Christiano Steinberg MD Attending Provider Active S tart: August 10, 2024 End: August 10, 2024 Dr. Christiano Steinberg MD Referring Provider Active S tart: August 10, 2024 End: August 10, 2024 Team Status: Active Member Role Status Dates Jeremiah Mike STAPLESC, CATALYST RECOVERY OPERATOR-C Primary Care Provider Active Start: August 10, 2024 Dr. Viral Gutiérrez DO Emergency Provider Active Start : August 10, 2024 Dr. Rhys Fontana MD Admit Provider Active Start: August 10, 2024 Dr. Rhys Fontana MD Referring Provider Active Start: August 10, 2024 Dr. Rhys Fontana MD Other Provider Active Start: August 10, 2024 Dr. Tiki Saldivar MD Other Provider Active Star t: August 10, 2024 Dr. Faraz Gonzáles DO Attending Provider Active Start: August 10, 2024 Team Status: Active Member Role Status Dates Jeremiah Mike DELACRUZ, CATALYST RECOVERY OPERATOR-C Primary Care Provider Active Start: August 11, 2024 Dr. Viral Gutiérrez DO Emergency Provider Active Start : August 11, 2024 Dr. Rhys Fontana MD Admit Provider Active Start: August 11, 2024 Dr. Rhys Fontana MD Other Provider Active Start: August 11, 2024 Dr. Tiki Saldivar MD Attending Provider Active Start: August 11, 2024 Dr. Tiki Saldivar MD Other Provider Active Star t: August 11, 2024 Team Status: Inactive Member Role Status Dates Jeremiah Mike VSC, CATALYST RECOVERY OPERATOR-C Primary Care Provider Active Start: August 31, 2024 End: August 31, 2024 KAI BootheC Other Provider Active St art: August 31, 2024 End: August 31, 2024 Monalisa Lyon CATALYST RECOVERY OPERATOR, CATALYST RECOVERY OPERATOR-C Attending Provider Active Start: August 31, 2024 End: August 31, 2024 Monalisa Lyon CATALYST RECOVERY OPERATOR, CATALYST RECOVERY OPERATOR-C Referring Provider Active Start: August 31, 2024 End: August 31, 2024 Dr. Aren Montaño MD Other Provider Active Start: August 31, 2024 End: August 31, 2024 Team Status: Inactive Member Role Status Dates Jeremiah Mike VSC, CATALYST RECOVERY OPERATOR-C Primary Care Provider Active Start: September 27, 2024 End: September 27, 2024 Jeremiah DELACRUZ, CATALYST RECOVERY OPERATOR-C Referring Provider Active S tart: September 27, 2024 End: September 27, 2024 Monalisa Lyon CATALYST RECOVERY OPERATOR, CATALYST RECOVERY OPERATOR-C Attending Provider Active Start: September 27, 2024 End: September 27, 2024 Source Comments (unrecognize d section and content) In the event this informatio n is protected by the Federal Confidentiality of Alcohol and Drug Abuse Patient Records regulations: The Federal rules restrict any use of the information to criminally investigate or prosecute any alcohol or drug abuse patient.[facility] Reason for Visit (unrecogniz ed section and content) Reason Comments PSA Consult FOR RECORDS PERTAINING TO PATIENTS WHO ARE [...] BE BASED ON THE PRIMARY CLINICAL RECORDS. [facility]. provides no warranty or guarantee of the accuracy or completeness of information in this document.
== END 2025-01-06 17:06 | disposition left against medical advice (07) ==
LOC: ED 17:08 → MS3 17:18
PROVIDERS: PCP Nurse Practitioner Family
DX: Z53.21 Procedure and treatment not carried out due to patient leaving prior to being seen by health care provider (principal)

== ENCOUNTER 2025-01-07 09:33 | Emergency (ER) | payer MEDICARE, OTHER, SELFPAY ==
[2024-02-28 10:04] VITALS: BMI 24.3
[2025-01-07 09:34] VITALS: BP 174/76; PULSE 73; RESP 16; TEMP 36.1; O2SAT 99; BMI 20.1
--- NOTE | 2025-01-07 09:48 | EDS_ITS ---
HPI History of Present Illness Chief Complaint: Other, Pain/Inj Detail of Chief Complaint: Arthralgias Informant: patient Narrative Narrative: 79-year-old male has a longstanding history of polyarthritis, he states has been worse for the past 3 weeks or so, he states his PCP put him on a prednisone taper that worked really well until he ran out 2 days ago now he is in a lot of severe pain again. The most affected joints are as follows: Left shoulder, right wrist, right hip, both knees, both ankles. He denies any systemic symptoms such as fevers, chills, redness, warmth, swelling, or dyspnea. He has a history of COPD, that has been stable recently. He denies injury. He states it is much worse in the mornings, and much better in the evening even if he is not on the prednisone. [facility] Medical History Personal history of other malignant neoplasm of large intestine Rectal bleeding GI bleed Marijuana use Prostate disease Shortness of breath on exertion Preoperative evaluation to rule out surgical contraindication Asthmatic bronchitis with exacerbation Nocturia Malignant neoplasm of colon, unspecified Heart disease Emphysema, unspecified Anxiety Frequency of micturition Chronic kidney disease, stage 3b Trigger finger Prostate CA Partial bowel obstruction Complete small bowel obstruction Elevated PSA Therapeutic drug monitoring Wears glasses Arthritis Easy bruising Excessive bleeding Back pain On home oxygen therapy Asthma Anemia Cancer Alcohol abuse Kidney stones Former smoker AAA (abdominal aortic aneurysm) Myocardial infarct Coronary artery disease Low back pain Epistaxis Sinus bradycardia Left inguinal hernia Essential (primary) hypertension Hyperlipidemia Atherosclerotic heart disease of [place] coronary artery without 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) History of ST elevation myocardial infarction (STEMI) (05/27/07) Insomnia Iron deficiency Abdominal aortic aneurysm (AAA) greater than 5.5 cm in diameter in male Hypoxia Bronchiectasis Allergy to dog dander Short bowel syndrome BPH (benign prostatic hyperplasia) Personal history of other malignant neoplasm of rectum, rectosigmoid junction, and anus Tachycardia 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 classification History of colon cancer COPD (chronic obstructive pulmonary disease) Home Medications ?Medication ?Instructions ?Recorded ?Last Taken ?Type Disability Placard #1 ea 02/11/23 Unknown Rx furosemide 40 mg tablet 40 mg PO DAILY PRN edema #30 tabs 12/13/23 Unknown Rx clopidogrel 75 mg tablet 75 mg PO DAILY anti platelet #90 02/10/24 08/08/24 Rx tabs verapamil 240 mg tablet,extended 240 mg PO QHS heart # 90 tabs 05/05/24 08/08/24 Rx release tamsulosin 0.4 mg capsule 0.4 mg PO BID prostate #180 caps 05/22/24 08/09/24 Rx budesonide 0.5 mg/2 mL suspension 0.5 mg inhalation Q1 2H PRN 10/16/24 Unknown History for nebulization breathing isosorbide mononitrate 30 mg 30 mg PO QHS heart Unknown History tablet,extended release 24 hr formoterol fumarate 20 mcg/2 mL 2 ml inhalation Q12H # 120 mL 10/26/24 Unknown Rx solution for nebulization (Perforomist) tiotropium 2.5 mcg-olodaterol 2.5 2 inh inhalation SHANNON LY #4 grams 11/08/24 Unknown Rx mcg/actuation mist for inhalation (Stiolto Respimat) meloxicam 7.5 mg tablet 7.5 mg PO DAILY PRN pain #4 tabs 01/07/25 Unknown Rx prednisone 10 mg tablet 10 mg PO DAILY #58 TABLETS 0 01/07/25 Unknown Rx Allergy/AdvReac Type Severity Reaction Status Date / Time aspirin Allergy Shortness Verified 01/07/25 09:36 of breath adhesive AdvReac Rash Verified 01/07/25 09:36 amoxicillin trihydrate (From AdvReac Other Verified 01/07/25 09:36 Augmentin) atorvastatin calcium (From AdvReac leg cramps Verified 01/07/25 09:36 Lipitor) isopropyl alcohol AdvReac Rash Verified 01/07/25 09:36 metoprolol succinate (From AdvReac Rash Verified 01/07/25 09:36 Toprol XL) naproxen (From Naprosyn) AdvReac Shortness Verified 01/07/25 09:36 of breath paroxetine HCl (From Paxil) AdvReac Unknown Verified 01/07/25 09:36 potassium clavulanate (From AdvReac tingling Verified 01/07/25 09:36 Augmentin) all over propoxyphene HCl (From AdvReac Unknown Verified 01/07/25 09:36 Darvon) sertraline HCl (From Zoloft) AdvReac Unknown Verified 01/07/25 09:36 simvastatin (From Zocor) AdvReac Unknown Verified 01/07/25 09:36 tiotropium bromide (From AdvReac Other Verified 01/07/25 09:36 Spiriva with HandiHaler) Family History Father Heart disease Hypertension High cholesterol CVA (cerebral vascular accident) Mother Dementia Surgical History History of coronary artery stent placement H/O hernia repair History of left inguinal hernia repair (06/2021) Hx of thumb surgery History of esophagogastroduodenoscopy (EGD) Hx of colonoscopy Hx of sinus surgery History of endovascular stent graft for abdominal aortic aneurysm (AAA) (06/25/20) History of left heart catheterization (05/24/20) History of coronary artery stent placement (11/27/22) Hx of umbilical hernia repair Hx of appendectomy History of tonsillectomy and adenoidectomy Hx of bilateral cataract extraction Status post laparoscopic colectomy history of right eye surgery History of right inguinal hernia repair History of tonsillectomy Social History housing: house Smoking Status: Former smoker pack-years: 67 second hand exposure: No alcohol intake: former details: Previous nightly drinker. Stopped 2021 substance use type: marijuana caffeine: Yes Type: coffee Number of servings: 4 what type of physical activity do you participate in: weight training and other details: pulmonary rehab frequency: 3-4 times per week additional social history: Has had blood transfusion ROS ROS ED Constitutional Constitutional ED: Denies chills or fever(s) Eyes Eyes: Denies change in vision or diplopia ENT ENT ED: Denies rhinorrhea or sore throat Cardiovascular Cardiovascular: Denies chest pain or palpitations Respiratory/Chest Respiratory/Chest: Denies cough or dyspnea Gastrointestinal Gastrointestinal: Denies abdominal pain, diarrhea, nausea or vomiting Genitourinary Genitourinary ED: Denies dysuria or hematuria Musculoskeletal Musculoskeletal: Reports arthralgias and back pain; Denies neck pain Integumentary Denies abscess or rash Neurologic Neurologic: Denies headache(s), paresthesias or weakness Psychiatric Psychiatric: Denies anxiety or suicidal thoughts EXAM Physical Exam Const Vital Signs: 01/07/25 09:34 01/07/25 09:47 Temperature 97 F L Temperature Source Temporal Pulse Rate 73 Respiratory Rate 16 Respiratory Effort Normal Non-Labored Respiratory Pattern Normal Blood Pressure 174/76 H Blood Pressure Mean 108 Pulse Ox 99 Oxygen Delivery Method Room Air Positive well nourished and well developed General Appearance ED: well developed and NAD HEENT Reports moist mucous membranes normocephalic and atraumatic Eyes PERRL and EOMs intact bilaterally Neck full ROM and supple Resp normal respiratory effort and clear to auscultation bilaterally Cardio regular rate, regular rhythm and no murmurs GI non-distended Back/Spine no CVA tenderness General Back: other FROM Extremity normal to inspection Extremity Narrative: Limited range of motion of affected joints due to pain. Left shoulder seems to be the most painful for him to move even when I move it passively with internal/external rotation patient was wincing in pain. There is no excessive warmth or erythema over the joint or deformity. I can passively range all joints of both lower extremities without any significant difficulty. He has a Velcro splint on his right wrist. He is neurovascular intact distally throughout all 4 extremities and is able to walk but with pain. General Extremety ED: Negative for edema, pulses abnormal or tenderness General Extremity: Negative for edema or pulses abnormal Neuro oriented x3, CN's II-XII intact bilaterally and no sensory deficits noted Sensorium / Orientation: awake and alert Motor Exam: strength 5/5 throughout Skin no rashes or lesions noted and no wounds MDM MDM MDM Narrative Medical decision making narrative: This patient symptoms are concerning for rheumatoid arthritis. He just finished a 2-week plus prednisone taper 2 days ago and he states he is scheduled to see his primary care provider 2 days from now when he expects to get a lot of testing. I advised him it would be better for him to wait until after the testing is performed to start the prednisone, in the meantime I offered prescription analgesics, he does not want anything narcotic including tramadol, I am going to put him on just several days worth of meloxicam since he has a history of some mild renal insufficiency according to old labs, for pain. I am also giving him a prescription for prednisone and encouraged him to try to wait until after he sees his primary care provider to start it. Discharge Plan Triage Chief Complaint: Other, Pain/Inj ED Provider: Barney Eli Dx/Rx/DC Orders Clinical Impression: Polyarthritis Instructions: Polyarthritis, ED Rheumatoid Arthritis Prescriptions: New prednisone 10 mg tablet 10 mg PO DAILY Qty: 58 0RF Rx Instructions: 4 po qd x 7 days, 3 po qd x 4d, 2 po qd x 3 days, 1 po qd x 3 days meloxicam 7.5 mg tablet 7.5 mg PO DAILY PRN (Reason: pain) Qty: 4 0RF No Action isosorbide mononitrate 30 mg tablet extended release 24 hr 30 mg PO QHS budesonide 0.5 mg/2 mL suspension for nebulization 0.5 mg inhalation Q12H PRN (Reason: breathing) (DME) Disability Placard See Rx Instructions .ROUTE .MEDSUPPLY Qty: 1 0RF Rx Instructions: [id number] furosemide 40 mg tablet 40 mg PO DAILY PRN (Reason: edema) Qty: 30 6RF clopidogrel 75 mg tablet 75 mg PO DAILY Qty: 90 3RF verapamil 240 mg tablet extended release 240 mg PO QHS Qty: 90 3RF tamsulosin 0.4 mg capsule 0.4 mg PO BID Qty: 180 1RF Rx Instructions: take one tab PO bid formoterol fumarate [Perforomist] 20 mcg/2 mL solution for nebulization 2 ml inhalation Q12H Qty: 120 11RF Stiolto Respimat 2.5-2.5 mcg/actuation mist 2 inh inhalation DAILY Qty: 4 2RF Primary Care Provider: Jeremiah Mckeon Referrals: Jeremiah Mckeon, [employer] [Primary Care Provider] - [facility] appointment Print Language: Slovak Disposition Disposition: Home, Self Care
[2025-01-07 10:05] VITALS: BP 150/79; PULSE 73; RESP 16; TEMP 36.1; O2SAT 99
--- OUTSIDE RECORDS SUMMARY | 2025-01-07 10:07 | XMS RPT_ITS | CCD ---
Author Organization [facility] Care Team Providers Care Gl Accountant Name Role Phone Lanny Mccall LPN Unavailable Unavailab Dee Cool Unavailable Unavailable Angie Leigh Unavailable Unavailable Angie Leigh Unavailable Unavailable Juliano Calabrese Primary Care Provider Dr. Spenser Sanchez Primary Care Provider [phone] Dr. Spenser Sanchez Attending Provider [phone] Dr. Spenser Sanchez Referring Provider [phone] Dr. Darryn Kessler Attending Provider Alexis HAM PASSER, HAM PASSER-C Cody Salazar Attending Provider Dr. Spenser Sanchez Primary Care Provider [phone] Dr. Spenser Sanchez Attending Provider [phone] Dr. Spenser Sanchez Referring Provider Alexis HAM PASSER, HAM PASSER-C Cody Salazar Attending Provider Camron HAM PASSER, HAM PASSER-C Monalisa Attending Provider Camron HAM PASSER, HAM PASSER-C Monalisa Referring Provider Dr. Spenser Sanchez Primary Care Provider [phone] Dr. Spenser Sanchez Attending Provider [phone] Dr. Spenser Sanchez Referring Provider [phone] FLORA Coto Attending Provider Unavailab Dr. Sawyer Stone Attending Provider [phone] Dr. Spenser Sanchez Primary Care Provider [phone] Dr. Sawyer Rodríguez Referring Provider Camron HAM PASSER, HAM PASSER-C Monalisa Attending Provider [phone] Alexis HAM PASSER, HAM PASSER-C Cody Salazar Attending Provider SPENSER SANCHEZ Primary Care Unavailable AREN MCARTHUR Referring Unavailable SPENSER SANCHEZ Primary Care Unavailable AREN MCARTHUR Attending Unavailable Spenser Sanchez MD Primary Care Provider [phone] Laura, Dr. Greenwood Primary Care Provider [phone] Laura, Dr. Greenwood Attending Provider [phone] Dr. Spenser Sanchez Referring Provider [phone] FLORA Coto Attending Provider Unavailab Dr. Sawyer Stone Attending Provider Dr. Sawyer Rodríguez Referring Provider Camron HAM PASSER, HAM PASSER-C Monalisa Attending Provider [phone] Alexis HAM PASSER, HAM PASSER-C Cody Salazar Attending Provider Dr. Barney Eli Emergency Provider Dr. Robel Figueredo Admit Provider Dr. Robel Figueredo Other Provider Dr. Nick Maguire Attending Provider Dr. Tiki Saldivar Attending Provider Dr. Tiki Saldivar Other Provider Dr. Spenser Sanchez Primary Care Provider [phone] Dr. Spenser Sanchez Referring Provider [phone] Dr. Spenser Sanchez Attending Provider [phone] Dr. Spenser Sanchez Primary Care Provider [phone] Laura, Dr. Greenwood Referring Provider [phone] Dr. Sawyer Rodríguez Attending Provider Dr. Sawyer Rodríguez Referring Provider Laura, Dr. Greenwood Primary Care Provider [phone] Laura, Dr. Greenwood Attending Provider [phone] Oleghdestiny, Dr. Greenwood Referring Provider [phone] Dr. Yifan Heard Attending Provider [phone] Dr. Christiano Steinberg Attending Provider Laura, Dr. Greenwood Primary Care Provider [phone] Oleghdestiny, Dr. Greenwood Attending Provider [phone] Oleghdestiny, Dr. Greenwood Referring Provider [phone] Dr. Darryn Kessler Attending Provider Laura, Dr. Greenwood Primary Care Provider [phone] Dr. Barney Eli Emergency Provider Dr. Robel Figueredo Admit Provider Terell, Dr. Huston Other Provider Dr. Nick Maguire Attending Provider [...] Other Provider Dr. Bethel Gallegos Attending Provider Dr. Bethel Gallegos Other Provider Dr. Good Morse Other Provider Dr. Heri Ewing Attending Provider Dr. Spenser Sanchez Primary Care Provider [phone] Dr. Rafa Hernandez Emergency Provider Dr. Delma Gonsalves Admit Provider Dr. Delma Gonsalves Referring Provider Dr. Delma Gonsalves Other Provider Dr. Heri Ewing Other Provider Rosy, Dr. Hugo Attending Provider Rosy, Dr. Hugo Other Provider Dr. Good Morse Other Provider Dr. Heri Ewing Attending Provider Rui HINES, PA Sara Iglesias Attending Provider TOMY Yepez Attending Provider Unavailable Dr. Marshall Briscoe Attending Provider Arturo LEONARD, CODY Reyes Attending Provider Dr. Spenser Sanchez Primary Care Provider [phone] Dr. Spenser Sanchez Referring Provider [phone] Dr. Aren Montaño Referring Provider Nestor HINES, PA Phi Iglesias Attending Provider Dr. Spenser Sanchez Primary Care Provider [phone] Dr. Spenser Sanchez Referring Provider [phone] Dr. Christiano Steinberg Attending Provider Dr. Marshall Briscoe Attending Provider Dr. Marshall Briscoe Referring Provider Nestor HINES, PA Phi Iglesias Attending Provider Dr. Yifan Heard Attending Provider Dr. Spenser Sanchez Attending Provider [phone] Marcos, Dr. Sawyer Craig Attending Provider Marcos, Dr. Sawyer Craig Referring Provider Dr. Spenser Sanchez Primary Care Provider [phone] Dr. Spenser Sanchez Referring Provider [phone] Camron HAM PASSER, HAM PASSER-C Monalisa Attending Provider Dr. Spenser Sanchez Primary Care Provider [phone] Dr. Spenser Sanchez Attending Provider [phone] Dr. Spenser Sanchez Referring Provider [phone] Marcos, Dr. Sawyer Craig Attending Provider Marcos, Dr. Sawyer Craig Referring Provider Camron HAM PASSER, HAM PASSER-C Monalisa Attending Provider Dr. Yifan Heard Attending Provider Arturo HAM PASSER, HAM PASSER-C Amy Attending Provider Dr. Spenser Sanchez MD Primary Care Provider Dr. Spenser Sanchez MD Referring Provider Torres HAM PASSER-CNanette Attending Provider Torres HAM PASSER-CNanette Referring Provider Dr. Xavi Almonte MD Attending Provider Dr. Xavi Almonte MD Emergency Provider Dr. Spenser Sanchez MD Attending Provider Bruno LEONARD-CTiffanie Attending Provider Dr. Faizan Dotson DO Attending Provider Dr. Faizan Dotson DO Emergency Provider Teri RODRIGUEZ, Dr. Liriano Attending Provider [phone] Teri RODRIGUEZ, Dr. Liriano Referring Provider [phone] Latoya PA, Tracy Other Provider Latoya PA, Tracy Referring Provider Latoya PA, Tracy Attending Provider Bruno HAM PASSER-C, Tiffanie Iglesias Referring Provider Mike HAM PASSER-C, Jeremiah Primary Care Provider Camron HAM PASSER-C, Monalisa Attending Provider Nivia HOLBROOK, Dr. Ruth Attending Provider Mike HAM PASSER-C, Jeremiah Referring Provider Nivia HOLBROOK, Dr. Ruth Other Provider Laura RODRIGUEZ, Dr. Greenwood Primary Care Provider Laura RODRIGUEZ, Dr. Greenwood Referring Provider Maryan RODRIGUEZ, Dr. Alvarado Attending Provider Maryan RODRIGUEZ, Dr. Alvarado Referring Provider Torres HAM PASSER-C, Nanette Attending Provider Torres HAM PASSER-CNanette Referring Provider Tez HOLBROOK, Dr. Osorio Emergency Provider Yariel RODRIGUEZ, Dr. Fairbanks Admit Provider Yariel RODRIGUEZ, Dr. Fairbanks Attending Provider Dr. Tiki Saldivar MD Other Provider Addi RODRIGUEZ, Dr. Rhys Bah Attending Provider Addi RODRIGUEZ, Dr. Rhys Bah Other Provider Marylin RODRIGUEZ, Dr. Saha Attending Provider Marylin RODRIGUEZ, Dr. Saha Referring Provider Mustapha HAM PASSER-C, Addy Attending Provider Marla HOLBROOK, Dr. Stratton Emergency Provider [phone] Addi RODRIGUEZ, Dr. Rhys Bah Admit Provider Laura RODRIGUEZ, Dr. Greenwood Primary Care Provider Marla HOLBROOK, Dr. Stratton Emergency Provider [phone] Addi RODRIGUEZ, Dr. Rhys Bah Admit Provider Yariel RODRIGUEZ, Dr. Fairbanks Attending Provider Laura RODRIGUEZ, Dr. Greenwood Primary Care Provider Laura RODRIGUEZ, Dr. Greenwood Referring Provider Bruno HAM PASSER-C, Tifafnie Iglesias Attending Provider Addi RODRIGUEZ, Dr. Rhys Bah Referring Provider Bruno LEONARD-CTiffanie Other Provider [phone] Camron HAM PASSER-CMonalisa Referring Provider Sabra RODRIGUEZ, Dr. Aren Madera Other Provider Laura RODRIGUEZ, Dr. Greenwood Referring Provider [facility] [place] Primary Care Unavailable Tiffanie Carr Referring Unavailable Tiffanie Carr Attending Unavailable Oleghe, Efewongbe Primary Care Unavailable Radha Ramirez Attending Unavailable Oleghe, Efewongbe Attending Unavailable Oleghe, Efewongbe Primary Care Unavailable Oleghe, Efewongbe Referring Unavailable Rhys Fontana Attending Unavailable Tiki Saldivar Consulting Unavailable Tiki Saldivar Admitting Unavailable Mckeon [facility], Jeremiah Primary Care Unavailable Oleghe, Efewongbe Primary Care Unavailable Manpreet Almonteo Attending Unavailable Oleghe, Efewongbe Primary Care Unavailable Nanette Macdonald Referring Unavailable Nanette Macdonald Attending Unavailable Oleghe, Efewongbe Primary Care Unavailable Aren Montaño Referring Unavailable Aren Montaño Attending Unavailable Tracy Klein Attending Unavailable Oleghe, Efewongbe Primary Care Unavailable Oleghe, Efewongbe Referring Unavailable Oleghe, Efewongbe Referring Unavailable Oleghe, Efewongbe Primary Care Unavailable Fidelia Tabares Attending Unavailable Latoya Tracy Referring Unavailable [place] Heri Attending Unavailable Oleghe, Efewongbe Primary Care Unavailable Oleghe, Efewongbe Primary Care Unavailable Js Arnold Attending Unavailable Monalisa Lyon NP Referring Unavailable Mckeon [facility], Jeremiah Primary Care [...] Primary Care Unavailable Oleghe, Efewongbe Attending Unavailable Latoya Tracy Consulting Unavailable [place], Heri Referring Unavailable Heri Williamson Attending Unavailable Oleghe, Efewongbe Primary Care Unavailable Oleghe, Efewongbe Referring Unavailable Oleghe, Efewongbe Primary Care Unavailable Nanette Macdonald Attending Unavailable Oleghe, Efewongbe Referring Unavailable Oleghe, Efewongbe Primary Care Unavailable Monalisa Lyon NP Attending Unavailable Christiano Steinberg Attending Unavailable Maryan [place] Referring Unavailable Mckeon VSC, Jeremiah Primary Care Unavailable Mckeon VSC, Jeremiah Primary Care Unavailable Friend, Faraz Consulting Unavailable Friend Faraz Attending Unavailable Mckeon VS, Jeremiah Referring Unavailable Kotsonis, Rhys F Attending Unavailable Saldivar, Tiki Consulting Unavailable Saldivar Tiki Admitting Unavailable Mckeon VSC, Jeremiah Primary Care Unavailable Kotsonis, Rhys F Consulting Unavailable Saldivar, Tiki Attending Unavailable Mckeon VSC, Jeremiah Primary Care Unavailable Mckeon VSC, Jeremiah Referring Unavailable Nanette Macdonald Attending Unavailable Mckeon VSC, Jeremiah Referring Unavailable Mckeon VSC, Jeremiah Primary Care Unavailable Monalisa Lyon NP Attending Unavailable Mckeon VSC, Jeremiah Primary Care Unavailable Nanette Macdonald Attending Unavailable Nanette Macdonald Referring Unavailable Kotsonis, Rhys F Consulting Unavailable Kotsonis, Rhys F Admitting Unavailable Yariel, Tiki Attending Unavailable Mckeon VSC, Jeremiah Primary Care Unavailable Tiffanie Carr Consulting Unavailable Mckeon VSC, Jeremiah Primary Care Unavailable Camron LEONARD, Monalisa Attending Unavailable Monalisa Lyon NP Referring Unavailable Aren Montaño Consulting Unavailable Mckeon VSC, Jeremiah Primary Care Unavailable Beam VSC, Addy Attending Unavailable Friend, Faraz Attending Unavailable Mckeon VSC, Jeremiah Primary Care Unavailable Jorge A Steinbergril Attending Unavailable Maryan, Christiano Referring Unavailable Mckeon [...] Friend, Faraz Attending Unavailable Mckeon VSC, Jeremiah Primary Care Unavailable Mckeon HAM PASSER-C, Jeremiah Primary Care Provider [phone] Mike HAM PASSER-C, Jeremiah Referring Provider Camron HAM PASSER-CMonalisa Attending Provider Provider, Ed Physician Emergency Provider Unavai lable Allergies Allergy Classification Reported Allergen(s) Allergy Type Date of Onset Reaction(s) Facility (9 sources) Adhesive Tape; Translations: [ADHESIVE TAPE] drug allergy 5 Rash [facility] Work Phone: (8 sources) amoxicillin / clavulanate; Translations: [AUGMENTIN] drug allergy 5 tingling and itching all over [facility] Work Phone: (9 sources) aspirin; Translations: [ASPIRIN] drug allergy 5 causes asthma [facility] Work Phone: (8 sources) atorvastatin drug allergy 5 myalgia [facility] Work Phone: (4 sources) metoprolol drug allergy 5 unknown [facility] Work Phone: (4 sources) metoprolol drug allergy 5 [facility] Work Phone: (4 sources) naproxen drug allergy 5 causes asthma [facility] Work Phone: (4 sources) naproxen drug allergy 5 [facility] Work Phone: (4 sources) PARoxetine drug allergy 5 unknown [facility] Work Phone: (7 sources) PARoxetine; Translations: [PAROXETINE] drug allergy 5 Unknown [facility] Work Phone: (8 sources) propoxyphene; Translations: [DARVON] drug allergy 5 unknown [facility] Work Phone: (8 sources) sertraline drug allergy 5 unknown [facility] Work Phone: (8 sources) simvastatin; Translations: [ZOCOR] drug allergy 5 myalgia [facility] Work Phone: (8 sources) Tetracyclines; Translations: [TETRACYCLINES] allergy to substance 5 unknown [facility] Work Phone: (4 sources) tiotropium drug allergy 5 [facility] Work Phone: (8 sources) RUBBING ALCOHOL; Translations: [RUBBING ALCOHOL] drug allergy 5 rash and salazar skin [facility] Work Phone: (4 sources) SPIRIVA HANDIHALER drug allergy 5 gets nasty, mean grumpy [facility] Work Phone: (1 source) Aluminum aspirin Drug Allergy 1 Shortness Of Breath [place], [place] (1 source) Amoxicillin Drug Allergy 1 Other (See Comments) [place], [place] (20 sources) atorvastatin; Translations: [atorvastatin calcium] Drug Allergy 1 Other (See Comments) [place] (3 sources) Clavulanate; Translations: [CLAVULANIC ACID] Drug Allergy 9 Unknown [place] (1 source) denatured ethanol Drug Allergy 1 Rash [place] (3 sources) Metoprolol; Translations: [METOPROLOL] Drug Allergy 5 Rash, Other (See Comments) [place] (20 sources) Naproxen; Translations: [NAPROXEN] Drug Allergy 5 Shortness Of Breath, Intolerance [place] (1 source) Propoxyphene Drug Allergy 1 [place] (20 sources) Sertraline; Translations: [SERTRALINE HCL] Drug Allergy 5 Intolerance [place] (20 sources) Simvastatin; Translations: [SIMVASTATIN] Drug Allergy 5 Intolerance [place] (1 source) tiotropium Drug Allergy 1 [place] (20 sources) Adhesive agent; Translations: [ADHESIVE] Propensity to adverse reactions 9 Rash [facility] (20 sources) Amoxicillin; Translations: [amoxicillin trihydrate] Drug Allergy 2 Other [facility] Comment on above: TINGLING ALL OVER (20 sources) Aspirin Drug Allergy 5 Intolerance [facility] Comment on above: ASTHMA (20 sources) Isopropyl Alcohol Drug Allergy 2 Rash [facility] (20 sources) Metoprolol; Translations: [metoprolol succinate] Drug Allergy 2 Rash [facility] (20 sources) PARoxetine; Translations: [PAROXETINE HCL] Drug Allergy 5 Intolerance [facility] (20 sources) Propoxyphene; Translations: [PROPOXYPHENE HCL] Drug Allergy 5 Intolerance [facility] (20 sources) tiotropium; Translations: [TIOTROPIUM BROMIDE] Drug Allergy 5 Intolerance [facility] Comment on above: SHORT TEMPER (20 sources) potassium clavulanate; Translations: [potassium clavulanate] Propensity to adverse reactions 2 tingling all over [facility] (2 sources) atorvastatin; Translations: [ATORVASTATIN] Drug Allergy 5 Intolerance [facility] Repository (2 sources) Doxycycline; Translations: [DOXYCYCLINE] Drug Allergy 7 Rash, Itching [facility] Rep[facility] (2 sources) Sertraline; Translations: [SERTRALINE] Drug Allergy 5 Unknown [facility] (2 sources) ALCOHOL; Translations: [ALCOHOL] Propensity to adverse reactions to drug (disorder) 9 Hives [facility] (2 sources) AMOXICILLIN-POT CLAVULANATE; Translations: [AMOXICILLIN-POT CLAVULANATE] Propensity to adverse reactions to drug (disorder) 5 Intolerance [facility] Rep[facility] (1 source) OTHER; Translations: [OTHER] Propensity to adverse reactions (disorder) 8 [facility] (1 source) Environmental allergies [Other] Propensity to adverse reactions 6 [facility] (1 source) tape [Other] Propensity to adverse reactions 8 [facility] Work Phone: (1 source) Aspirin Drug Allergy 5 [facility] (1 source) Isopropyl Alcohol Drug Allergy 5 [facility] (1 source) Naproxen Drug Allergy 5 [facility] (1 source) Simvastatin Drug Allergy 5 [facility] Rep[facility] Medications Current Medications Medication Drug Class(es) Dates Sig (Normalized) Sig (Original) 1 ml atropine sulfate 0.4 mg/ml injection (1 source) Anticholinergic, Cholinergic Muscarinic Antagonist Start: 06-07-2020 End: 06-07-2020 atropine injection 0.5 mg cholecalciferol 0.25 mg oral capsule (14 sources) Vitamin D Start: 04-30-2022 take 250 ug by mouth once daily Cholecalciferol (Vitamin D3) Active 250 MCG PO DAILY April 30, 2022 1:00am Cholecalciferol 50 MCG (1999) TABS Take 2,000 Units by mouth 0 Active Disability Placard (8 sources) Start: 02-11-2023 Disability Laurent card Active 0 .ROUTE .MEDSUPPLY 1 0 February 11, 2023 12:00am chronic respiratory distress J96.10 [id number] Start: 02-11-2023 Disability Laurent card Active 0 .ROUTE .MEDSUPPLY 1 February 10, 2023 11:00pm [id number] Start: 02-11-2023 Disability Laurent card Active 0 .ROUTE .MEDSUPPLY February 11, 2023 12:00am [id number] Formoterol Fumarate (Perforomist) 20 mcg/2 mL solution for nebulization (20 sources) Start: 10-26-2024 take 1 mL by inhalation every twelve hours Formoterol Fumarate (Perforomist) 20 mcg/2 mL solution for nebulization Active 2 mL INHALATION Q12H 120 11 October 26, 2024 9:09am 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 classification Chronic obstructive pulmonary disease, unspecified Start: 10-26-2024 End: 10-26-2024 take 1 mL by inhalation every twelve hours Formoterol Fumarate (Perforomist) 20 mcg/2 mL solution for nebulization Discontinued 2 mL INHALATION Q12H 120 October 26, 2024 8:15am October 26, 2024 9:09am 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 classification Chronic obstructive pulmonary disease, unspecified Start: 10-16-2024 End: 10-26-2024 take 1 mL by inhalation every twelve hours as needed for chronic obstructive pulmonary disease Formoterol Fumarate (Perforomist) 20 mcg/2 mL solution for nebulization Discontinued 2 mL INHALATION Q12H as needed for copd October 16, 2024 12:00am October 26, 2024 8:17am Start: 09-27-2024 End: 10-16-2024 take 1 mL by inhalation every twelve hours Formoterol Fumarate (Perforomist) 20 mcg/2 mL solution for nebulization Discontinued 2 mL INHALATION Q12H 120 September 27, 2024 2:32pm October 16, 2024 1:15pm Asthma Moderate persistent asthma, uncomplicated copd Start: 05-06-2023 End: 09-27-2024 take 1 mL by inhalation every twelve hours Formoterol Fumarate (Perforomist) 20 mcg/2 mL solution for nebulization Discontinued 2 mL INHALATION Q12H 120 May 06, 2023 2:26pm September 27, 2024 2:33pm Asthma Moderate persistent asthma, uncomplicated copd Start: 05-06-2023 take 1 mL by inhalat ion every twelve hours Formoterol Fumarate (Perforomist) 20 mcg/2 mL solution for nebulization Active 2 ML INHALATION Q12H May 06, 2023 2:26pm Start: 05-06-2023 take 1 mL by inhalat ion every twelve hours Formoterol Fumarate (Perforomist) 20 mcg/2 mL solution for nebulization Active 2 ML INHALATION Q12H 120 May 06, 2023 1:26pm Start: 05-05-2023 End: 05-06-2023 take 1 mL by inhalation every twelve hours Formoterol Fumarate (Perforomist) 20 mcg/2 mL solution for nebulization Discontinued 2 mL INHALATION Q12H 120 May 05, 2023 11:16am May 06, 2023 2:26pm Asthma Moderate persistent asthma, uncomplicated copd Start: 05-05-2023 End: 05-06-2023 take 1 mL [...] ML INHALATION Q12H 120 May 05, 2023 10:16am May 06, 2023 1:26pm Start: 12-25-2021 End: 05-05-2023 take 1 mL by inhalation every twelve hours Formoterol Fumarate (Perforomist) 20 mcg/2 mL solution for nebulization Discontinued 2 mL INHALATION Q12H 120 December 25, 2021 3:18pm May 05, 2023 11:17am Asthma Moderate persistent asthma, uncomplicated copd Start: 12-25-2021 End: 05-05-2023 take 1 mL by inhalation every twelve hours Formoterol Fumarate (Perforomist) 20 mcg/2 mL solution for nebulization Discontinued 2 ML INHALATION Q12H 120 December 25, 2021 3:18pm May 05, 2023 [...] for nebulization Active 2 ML INHALATION Q12H 120 December 25, 2021 2:18pm Start: 12-25-2021 take 1 mL by inhalat ion every twelve hours Formoterol Fumarate (Perforomist) 20 mcg/2 mL solution for nebulization Active 2 ML INHALATION Q12H December 25, 2021 3:18pm Start: 12-18-2020 End: 12-25-2021 take 1 mL by inhalation every twelve hours Formoterol Fumarate (Perforomist) 20 mcg/2 mL solution for nebulization Discontinued 2 mL INHALATION Q12H December 18, 2020 8:06pm December 25, 2021 3:19pm copd Start: 12-18-2020 End: 12-25-2021 take 1 mL [...] by mouth 2 times daily 0 Active Lactobacillus Combination No.9 (Adult 50 Plus Probiotic) 4 billion cell capsule (13 sources) Start: 04-30-2022 take 4 capsules by mouth once daily [...] 30, 2022 12:00am administer with a meal Tiotropium-Olodaterol (10 sources) Anticholinergic, beta2-Adrenergic Agonist Start: 11-08-2024 Tiotropium-Olodaterol (Stiolto Respimat) 2.5-2.5 mcg/actuation mist Active 2 NMA INHALATION DAILY 4 2 November 08, 2024 12:00am Start: 09-10-2015 STIOLTO RESPIM AT 2.5-2.5 MCG/ACT AERS 2 puffs daily TIOTROPIUM BROMIDE-OLODATEROL [id number] Monalisa Lyon CNP Start: 09-10-2015 End: 12-11-2015 STIOLTO RESPIMAT 2.5-2.5 MCG /ACT AERS 2 puffs daily TIOTROPIUM BROMIDE-OLODATEROL [id number] Dee Barahona Flippin-3 Fatty Acids (OMEGA-3 FISH OIL PO) (1 source) Flippin-3 Fatty Ac ids (OMEGA-3 FISH OIL PO) [...] sources) Opioid Agonist Start: 06-20-2021 End: 06-23-2021 Hydrocodone-Acetami nophen 5-325 mg tablet Discontinued 1 {tbl} PO EVERY 6 HOURS as needed for pain 10 3 0 June 20, 2021 June 22, 2021 1:00am June 23, 2021 1:03am Left inguinal hernia Start: 06-20-2021 End: 06-23-2021 Start: 06-20-2021 End: 06-23-2021 take 1 tablet by mouth every six hours Hydrocodone-Acetaminophen Discontinued 1 TABLET PO EVERY 6 HOURS 10 3 June 20, 2021 June 23, 2021 1:03am Start: 06-20-2021 End: 06-23-2021 [id number] 200 actuat albuterol 0.09 mg/actuat metered dose inhaler (20 sources) beta2-Adrenergic Agonist Start: 07-02-2021 End: 07-27-2024 Albuterol Sulfate (Ventolin Hfa) 90 mcg/actuation HFA aerosol inhaler Discontinued 2 NMA INHALATION Q4H as needed for shortness of breath or wheezing 18 July 02, 2021 1:00am July 27, 2024 5:24pm Start: 07-02-2021 End: 07-27-2024 Start: 07-02-2021 take 1 puff(s) by in halation every four hours Albuterol Sulfate (Ventolin Hfa) 90 mcg/actuation HFA aerosol inhaler Active 2 PUFF INHALATION Q4H July 02, 2021 1:00am Start: 07-02-2021 120 actuat albuterol 0.1 mg/actuat / ipratropium bromide 0.02 mg/actuat inhalation spray (20 sources) Anticholinergic, beta2-Adrenergic Agonist Start: 08-11-2024 End: 09-27-2024 take 20-100 ug by inhalation every six hours as needed Ipratropium-Albuterol (Combivent Respimat) 20-100 mcg/actuation mist Discontinued 2 NMA INHALATION EVERY 6 HOURS as needed for shortness of breath or wheezing 4 August 15, 2024 3:57pm September 27, 2024 2:27pm Asthma Mild intermittent asthma, uncomplicated Start: 08-11-2024 End: 09-27-2024 Start: 12-08-2023 End: 07-27-2024 take 20-100 ug by inhalation every six hours Ipratropium-Albuterol (Combivent Respimat) 20-100 mcg/actuation mist Discontinued 1 NMA INHALATION EVERY 6 HOURS 4 December 08, 2023 12:00am July 27, 2024 5:25pm Start: 12-08-2023 End: 07-27-2024 Start: 10-30-2014 End: 06-16-2021 Ipratropium-Albuterol 20-100 mcg/actuation mist Discontinued 2 NMA INHALATION NEEDED as needed for Shortness Of Breath 4 December 11, 2019 1:16pm June 16, 2021 12:12pm Start: 10-30-2014 End: 06-16-2021 Ipratropium-Albuterol Discon tinued 2 PUFF INHALATION NEEDED 4 December 11, 2019 1:16pm June 16, 2021 12:12pm Start: 10-30-2014 End: 06-16-2021 take 20-100 ug by in halation every four hours as needed albuterol-ipratropium (COMBIVENT RESPIMAT) 20-100 MCG/ACT AERS inhaler Inhale 1 puff into the lungs every 4 hours as needed for Wheezing 0 Active COMBIVENT RESPIM AT 20-100 MCG/ACT AERS prn IPRATROPIUM-ALBUTEROL [id number] Monalisa Lyon CAUSTIC STRENGTH INSPECTOR COMBIVENT RESPIM AT 20-100 MCG/ACT AERS prn IPRATROPIUM-ALBUTEROL [id number] Monalisa Lyon CAUSTIC STRENGTH INSPECTOR COMBIVENT RESPIM AT 20-100 MCG/ACT AERS prn IPRATROPIUM-ALBUTEROL [id number] Latonya Gant LPN Comment on above: NEEDED amLODIPine 5 mg oral tablet (20 sources) Dihydropyridine Calcium Channel Kimberley Start: 12-02-19 End: 03-21-20 24 take 1 tablet by mouth once daily Amlodipine 5 mg tablet Discontinued 5 mg PO DAILY 90 December 01, 2022 12:00am March 21, 2024 2:28pm Ok to take with Verapamil per Dr. Steinberg Start: 07-01-2019 End: 04-22-2020 take 1 tablet by mouth once daily Amlodipine 10 MG tablet Discontinued 10 mg PO DAILY 30 0 July 01, 2019 1:00am April 22, 2020 1:57pm ARFORMOTEROL TARTRATE (8 sources) beta2-Adrenergic Agonist Start: 09-18-2015 BROVA NA 15 MCG/2ML NEBU 1 ampule twice daily ARFORMOTEROL TARTRATE [id number] Monalisa Lyon CAUSTIC STRENGTH INSPECTOR Start: 09-18-2015 End: 12-11-2015 BROVANA 15 MCG/2ML NEBU 1 am pule twice daily ARFORMOTEROL TARTRATE [id number] Dee Louisannmariealberta ascorbic acid 500 mg oral capsule (20 sources) Vitamin C Start: 12-02-2022 End: 08-03-2023 take 2 capsules by mouth once daily Ascorbic Acid (Vitamin C) 500 mg capsule Discontinued 1000 mg PO .QD December 02, 2022 12:00am August 03, 2023 2:30pm Start: 12-02-2022 End: 08-03-2023 Start: 04-30-2022 take 1 g by mouth once daily A scorbic Acid (Vitamin C) Active 1 GM PO DAILY April 30, 2022 1:00am Start: 04-30-2022 take 1 g by mouth once daily A scorbic Acid (Vitamin C) Active 1 GM PO DAILY April 30, 2022 12:00am azithromycin 250 mg oral tablet (20 sources) Macrolide Antimicrobial Start: 01-26-2024 End: 03-21-2024 take 2-5 tablets by mouth once daily Azithromycin 250 mg tablet Discontinued 0 PO .COMPLEX 6 0 January 26, 2024 2:03pm March 21, 2024 2:28pm take 500 mg today (day 1), then 250 mg for 4 days (days 2-5) PO Start: 02-16-2023 End: 04-19-2023 Azithromycin 250 mg tablet Discontinued 250 mg PO daily 12 February 16, 2023 12:00am April 19, 2023 2:03pm 2 tablets today, then 1 tablet daily on days 2 through 11 Start: 01-17-2019 End: 01-19-2019 take 1 tablet by mouth once daily Azithromycin 250 mg tablet Discontinued 250 mg PO daily 6 0 January 17, 2019 12:00am January 19, 2019 10:34am Start: 06-09-2017 End: 08-30-2017 take 1 tablet by mouth once daily Azithromycin 250 mg tablet Discontinued 250 mg PO daily 6 0 June 09, 2017 1:00am August 30, 2017 2:49pm Start: 08-28-2016 End: 12-16-2016 AZITHROMYCIN 250 MG TABS 2 t ablets by mouth today and then 1 tablet daily for the next 4 days AZITHROMYCIN [id number] Angie Leigh bempedoic acid 180 mg / ezetimibe 10 mg oral tablet (16 sources) Dietary Cholesterol Absorption Inhibitor Start: 01-12-2023 End: 08-03-2023 Bempedoic Acid-Ezetimibe 180-10 mg tablet Discontinued 1 {tbl} PO DAILY 60 2 January 12, 2023 12:00am August 03, 2023 2:31pm Start: 01-12-2023 End: 08-03-2023 Start: 01-12-2023 End: 08-03-2023 take 1 tablet by mouth once daily Bempedoic Acid-Ezetimibe Discontinued 1 TABLET PO DAILY 60 January 12, 2023 12:00am August 03, 2023 2:31pm bicalutamide 50 mg oral tablet (20 sources) Androgen Receptor Inhibitor Start: 11-14-2022 End: 03-21-2024 take 1 tablet by mouth once daily Bicalutamide 50 mg tablet Discontinued 50 mg PO DAILY November 14, 2022 12:00am March 21, 2024 2:28pm cancer budesonide 0.25 mg/ml inhalation suspension (20 sources) Corticosteroid Start: 08-06-2021 End: 10-16-2024 take 0.5 mg by inhalation every twelve hours Budesonide 0.5 mg/2 mL suspension for nebulization Discontinued 0.5 mg INHALATION Q12H 180 June 14, 2024 2:59pm October 16, 2024 1:15pm Chronic obstructive pulmonary disease Chronic obstructive pulmonary disease, unspecified breathing Start: 08-06-2021 End: 06-14-2024 Start: 06-11-2017 End: 08-19-2020 take 0.5 mg by inhalation every twelve hours Budesonide 0.5 mg/2 mL suspension for nebulization Discontinued 0.5 mg INHALATION Q12H 180 July 20, 2019 2:15pm August 19, 2020 10:59am copd Start: 06-11-2017 End: 07-20-2019 take 0.25 mg by inhalation every twelve hours Budesonide 0.5 mg/2 mL suspension for nebulization Discontinued 0.25 mg INHALATION Q12H 60 May 31, 2019 11:17am June 13, 2019 12:37pm Start: 06-11-2017 End: 08-19-2020 Start: 04-11-2015 budesonide (PU LMICORT) 0.5 mg/2 mL nebulizer solution Use 0.5 mg via nebulizer twice daily. 0 04/11/2015 Active Start: 12-19-2014 BUDESONIDE 0.5 MG/2ML SUSP INH BID BUDESONIDE [id number] Dee Miller Juan Pablo COULTERN Start: 12-19-2014 BUDESONIDE 0.5 MG/2ML SUSP INH daily BUDESONIDE [id number] Darryn Kessler Comment on above: Use 0.5 mg via nebul izer twice daily. Mslctyb-U7-Gzkj-Coppe r-Felix (Citracal-D3 Maximum Plus) 325 mg-12.5 mcg -2.75 mg tablet (11 sources) Start: 11-14-2022 End: 03-21-2024 Phcvxba-G9-Xkkk-Copper-Ma cheyenne (Citracal-D3 Maximum Plus) 325 mg-12.5 mcg -2.75 mg tablet Discontinued 2 {tbl} PO TWICE A DAY November 14, 2022 12:00am March 21, 2024 2:29pm bone deficiency Start: 11-14-2022 take 2 tablets by [facility] twice daily Xfdknhf-P1-Lazi-Copper-Felix (Citracal- D3 Maximum Plus) 325 mg-12.5 mcg -2.75 mg tablet Active 2 TABLET PO TWICE A DAY November 13, 2022 11:00pm Start: 11-14-2022 take 2 tablets by [facility] twice daily Gsvtqcc-V5-Mrye-Copper-Felix (Citracal- D3 Maximum Plus) 325 mg-12.5 mcg -2.75 mg tablet Active 2 TABLET PO TWICE A DAY November 14, 2022 12:00am carvedilol 3.125 mg oral tablet (20 sources) alpha-Adrenergic Kimberley, beta-Adrenergic Kimberley Start: 05-26-2021 End: 12-29-2021 take 1 tablet by mouth twice daily at mealtime Carvedilol 3.125 mg tablet Discontinued 3.125 mg PO TWICE A DAY 60 0 August 22, 2021 3:43pm December 29, 2021 2:59pm must administer with a meal/food Start: 05-26-2021 End: 05-26-2021 take 1 tablet by mouth twice daily at mealtime Carvedilol 6.25 mg tablet Discontinued 6.25 mg PO TWICE A DAY 60 0 May 26, 2021 1:00am May 26, 2021 3:01pm must administer with a meal/food chondroitin sulfates 400 mg / glucosamine hydrochloride 500 mg oral capsule (5 sources) Start: 09-30-2012 take 2 capsules by mouth once daily Pxkvuqqxujv-Gxbmwwylq-Pvj C-Mn (GLUCOSAMINE CHONDROITIN MAXSTR) 500-400 mg cap Take 2 capsules by mouth once daily. 0 09/30/2012 Active take 1 tablet by mouth once osmani y [facility] GLUCOSAMINE-CHONDROITIN 500-400 MG CAPS One tablet by mouth daily GLUCOSAMINE-CHONDROITIN [id number] Gabriel Galdamez Comment on above: Take 2 capsules by m out once daily. chondroitin sulfates 400 mg / glucosamine hydrochloride 500 mg / methylsulfonylmethane 83 mg oral tablet (20 sources) Start: 02-15-20 End: 04-22-20 take 1 tablet by mouth once daily Glucosamine Fzs-Hvh-Ngehwtiqzq 1 EACH tablet Discontinued 1 {tbl} PO DAILY February 14, 2013 12:00am April 22, 2020 1:59pm supplement Start: 02-14-2013 End: 04-22-2020 Start: 02-14-2013 End: 04-22-2020 take 1 tablet by mouth once daily Glucosamine Lwn-Pzv-Kswitnztto Discontinued 1 TABLET PO DAILY February 14, 2013 12:00am April 22, 2020 1:59pm Start: 02-14-2013 End: 04-22-2020 ciprofloxacin 500 mg oral tablet (20 sources) Quinolone Antimicrobial Start: 12-20-2020 End: 12-25-2020 take 1 tablet by mouth twice daily Ciprofloxacin Hcl (Cipro) 500 mg tablet Discontinued 500 mg PO TWICE A DAY 10 0 December 20, 2020 12:00am December 25, 2020 1:40pm SOD PICOSULFATE-MAG OX-CIT ACD (4 sources) Start: 05-10-2014 End: 05-11-2014 PREPOPIK 10-3.5-12 MG-GM-GM PACK use as per instructions SOD PICOSULFATE-MAG OX-CIT ACD [id number] Marcela Iglesias Elliot clopidogrel 75 mg oral tablet (20 sources) [id number] Platelet Inhibitor Start: 12-28-2022 End: 02-10-2024 take 1 tablet by mouth once daily Clopidogrel 75 mg tablet Discontinued 75 mg PO DAILY 90 3 December 06, 2023 9:11am February 10, 2024 1:53pm Start: 02-14-2013 End: 11-27-2022 take 1 tablet by mouth at bedtime Clopidogrel 75 mg tablet Discontinued 75 mg PO AT BEDTIME 90 3 January 08, 2022 1:20pm November 27, 2022 10:23am blood thinner Comment on above: Take 1 tablet by kevin th once daily. DIPHENOXYLATE-ATROPINE (8 sources) End: 06-12-2014 DIPHENATOL 2.5-0.025 MG TABS two tabs every 6 hrs as needed DIPHENOXYLATE-ATROPINE [id number] Darryn Kessler DIPHENATOL 2.5-0 .025 MG TABS two tabs every 6 hrs as needed DIPHENOXYLATE-ATROPINE [id number] Gabriel Galdamez doxycycline monohydrate 100 mg oral capsule (10 sources) Tetracycline-class Drug Start: 04-11-2024 End: 04-19-2024 take 1 capsule by mouth twice daily Doxycycline Monohydrate 100 mg capsule Discontinued 100 mg PO TWICE A DAY 14 0 April 11, 2024 1:00am April 19, 2024 1:57pm fluticasone propionate 0.05 mg/actuat metered dose nasal spray (20 sources) Corticosteroid Start: 05-09-2020 End: 07-17-2024 Fluticasone Propionate 50 mcg/actuation spray,suspension Discontinued 1 NMA INTRANASAL TWICE A DAY May 09, 2020 1:00am July 17, 2024 1:17pm congestion administer into each nostril Start: 05-09-2020 End: 07-17-2024 Start: 05-09-2020 take 1 spray(s) nasa l route twice daily Fluticasone Propionate Active 1 SPRAY INTRANASAL TWICE A DAY May 09, 2020 1:00am administer into each nostril Start: 08-05-2015 take 2 spray(s) nasa l route once daily as needed FLUTICASONE PROPIONATE 50 MCG/ACT SUSP two sprays each nostril daily as needed FLUTICASONE PROPIONATE [id number] Dee Dixon Missyjaime take 1 spray(s) nasa l route once daily fluticasone (FLONASE) 50 mcg/actuation nasal spray Use 1 [place] in each nostril once daily. 0 Active take 1 spray(s) nasa l route once daily fluticasone (FLONASE) 50 MCG/ACT nasal spray 1 spray by Each Nostril route daily 0 Active Comment on above: Use 1 [place] in each nostril once daily. FLUTICASONE-SALME TEROL (12 sources) Corticosteroid, beta2-Adrenergic Agonist Start: 09-10-2015 take 1 puff(s) by inhalation twice daily ADVAIR DISKUS 250-50 MCG/DOSE AEPB 1 puff INH BID FLUTICASONE-SALMETERO L [id number] Monalisa Lyon CNP Start: 09-10-2015 End: 09-11-2015 take 1 puff(s) by inhalation twice daily ADVAIR DISKUS 250-50 MCG/DOSE AEPB 1 puff INH BID FLUTICASONE-SALMETEROL [id number] Monalisa Lyon CAUSTIC STRENGTH INSPECTOR ADVAIR DISKUS 25 0-50 MCG/DOSE AEPB 1 puff q d FLUTICASONE-SALMETEROL [id number] Latonya Gant LPN formoterol fumarate 0.01 mg/ml inhalation solution (20 sources) beta2-Adrenergic Agonist Start: 06-11-2017 End: 12-18-2020 take 1 mL by inhalation every twelve hours Formoterol Fumarate 20 mcg/2 mL solution for nebulization Discontinued 2 mL INHALATION Q12H 120 6 January 17, 2020 9:10am December 18, 2020 8:06pm copd Start: 06-11-2017 End: 12-18-2020 Start: 06-11-2017 End: [...] 20 MCG/2ML NEBU INH daily FORMOTEROL FUMARATE [id number] Darryn Kessler Start: 12-19-2014 PERFOROMIST 20 MCG/2ML NEBU INH daily FORMOTEROL FUMARATE [id number] Monalisa Lyon CAUSTIC STRENGTH INSPECTOR Start: 12-19-2014 PERFOROMIST 20 MCG/2ML NEBU INH BID FORMOTEROL FUMARATE [id number] Dee Almeida PRIMARY CLASS TEACHER Start: 12-19-2014 PERFOROMIST 20 MCG/2ML NEBU INH BID FORMOTEROL FUMARATE [id number] Monalisa Lyon CAUSTIC STRENGTH INSPECTOR Start: 12-19-2014 PERFOROMIST 20 MCG/2ML NEBU INH BID FORMOTEROL FUMARATE [id number] Darryn Kessler Comment on above: Use 20 mcg via nebul izer every 12 hours. MOMETASONE FURO-FORMOTEROL FUM (16 sources) Corticosteroid, beta2-Adrenergic Agonist Start: 06-12-2014 End: 12-07-2014 DULERA 100-5 MCG/ACT AERO 1 puff a day MOMETASONE FURO-FORMOTEROL FUM [id number] Latonya Gant PRIMARY CLASS TEACHER Start: 06-12-2014 DULERA 100-5 M CG/ACT AERO 1 puff a day MOMETASONE FURO-FORMOTEROL FUM [id number] Darryn Kessler DULERA 100-5 MCG /ACT AERO 1 puff bid MOMETASONE FURO-FORMOTEROL FUM [id number] Darryn Kessler End: 03-12-2015 DULERA 100-5 MCG/ACT AERO 1 puff bid MOMETASONE FURO-FORMOTEROL FUM [id number] Latonya Kaufman Stalin PRIMARY CLASS TEACHER furosemide 40 mg oral tablet (20 sources) Loop Diuretic Start: 12-01-2022 End: 12-13-2023 take 1 tablet by mouth once daily as needed for edema Furosemide 40 mg tablet Discontinued 40 mg PO DAILY as needed for edema 01 04April 16, 2023 2:15pm December 13, 2023 3:02pm Garlic (20 sources) Non-Standardized Food Allergenic Extract Start: 12-02-2022 End: 08-03-2023 take 2 capsules by mouth once daily Garlic 1,000 mg capsule Discontinued 2000 mg PO DAILY December 02, 2022 12:00am August 03, 2023 2:30pm Start: 12-02-2022 End: 08-03-2023 Start: 12-02-2022 End: 08-03-2023 take 2000 mg by mouth once daily Garlic Discontinued 2 000 MG PO DAILY December 02, 2022 12:00am August 03, 2023 2:30pm Start: 12-02-2022 take 2000 mg by mouth once [place] Garlic Active 2000 MG PO DAILY December 01, 2022 11:00pm Start: 12-02-2022 take 2000 mg by mouth once [place] ly Garlic Active 2000 MG PO DAILY December 02, 2022 12:00am Start: 06-12-2021 take 2000 mg by mouth once glenis ly Garlic Active 2000 MG PO DAILY June 12, 2021 12:00am Start: 06-12-2021 take 2000 mg by mouth once glenis ly Garlic Active 2000 MG PO DAILY June 12, 2021 1:00am Start: 06-29-2019 End: 12-20-2020 take 2 capsules by mouth once daily Garlic 1,000 MG capsule Discontinued 2000 mg PO DAILY June 29, 2019 1:00am December 20, 2020 11:24am supplement Start: 06-29-2019 End: 12-20-2020 Start: 06-29-2019 End: 12-20-2020 take 2000 mg by mouth once daily Garlic Discontinued 2 000 MG PO DAILY June 29, 2019 12:00am December 20, 2020 10:24am Start: 06-29-2019 End: 12-20-2020 take 2000 mg by mouth once daily Garlic Discontinued 2 000 MG PO DAILY June 29, 2019 1:00am December 20, 2020 11:24am Start: 05-07-2016 take 1 tablet by kevin th once daily GARLIC 2000 MG TBEC One tablet by mouth daily GARLIC [id number] Dee Almeida TOMY Start: 06-06-2010 take 1 capsule recta l route once daily Garlic ORAL Cap Indications: Malignant neoplasm of colon, unspecified site , Malignant neoplasm of rectum (HCC) , Unspecified vitamin D deficiency Take one(1) capsule daily. 0 06/06/2010 Active Garlic 1000 MG C APS Take 1,000 mg by mouth 0 Active Comment on above: Take one(1) capsule daily. glutamine 500 mg oral capsule (20 sources) Amino Acid Start: 12-02-2022 End: 08-03-2023 take 1 capsule by mouth once daily Glutamine (L-Glutamine) 500 mg capsule Discontinued 500 mg PO DAILY December 02, 2022 12:00am August 03, 2023 2:30pm Start: 04-30-2022 take 1 tablet by kevin twice daily Glutamine (L-Glutamine) 500 mg tablet Active 500 MG PO TWICE A DAY April 30, 2022 1:00am glutathione 50 mg oral table t (20 sources) Start: 12-02-2022 End: 08-03-2023 Glutathione 50 mg capsule Discontinued mg PO December 02, 2022 12:00am August 03, 2023 2:30pm Start: 12-02-2022 End: 08-03-2023 Glutathione Discontinued MG [...] 2022 12:00am 12 hr guaiFENesin 1200 mg extended release oral tablet (20 sources) Start: 07-01-2019 End: 04-22-2020 take 1 tablet by mouth twice daily Guaifenesin 1,200 MG tablet Discontinued 1200 mg PO TWICE A DAY 60 0 July 01, 2019 1:00am April 22, 2020 1:59pm hydrALAZINE hydrochloride 50 mg oral tablet (20 sources) Arteriolar Vasodilator Start: 04-30-2022 End: 05-10-2022 take 25-50 mg by mouth at bedtime Hydralazine 50 mg tablet Discontinued 25 - 50 mg PO AT BEDTIME 30 April 30, 2022 1:00am May 10, 2022 7:56pm Start: 04-30-2022 End: 05-10-2022 Start: 04-30-2022 End: 05-10-2022 take 25-50 mg by mouth at bedtime Hydralazine Discontinued 25 - 50 MG PO AT BEDTIME April 30, 2022 1:00am May 10, 2022 7:56pm hydrocortisone 25 mg/ml topical cream (10 sources) Corticosteroid Start: 03-21-2024 End: 07-17-2024 Hydrocortisone 2.5 % cream with perineal applicator Discontinued 1 NMA RC 1 to 2 times per day as needed for rectal bleeding 30 March 21, 2024 1:00am July 17, 2024 1:18pm Hydrocortisone Acetate (Anusol-Hc) 25 mg suppository (2 sources) Start: 08-02-2024 End: 08-11-2024 Hydrocortisone Acetate (Anusol-Hc) 25 mg suppository Discontinued 25 mg RC AT BEDTIME 12 August 02, 2024 12:00am August 11, 2024 9:46am proctitis hydrOXYzine pamoate 25 mg oral capsule (20 sources) Antihistamine Start: 06-02-2022 End: 07-06-2022 Hydroxyzine Pamoate 50 mg capsule Discontinued 50 mg PO AT BEDTIME 30 June 02, 2022 1:00am July 06, 2022 2:47pm sleep Take with 25mg capsule. Start: 06-02-2022 End: 07-06-2022 Start: 06-02-2022 End: 07-06-2022 Start: 05-11-2022 End: 07-06-2022 take 1 capsule by mouth at bedtime as needed for sleep Hydroxyzine Pamoate 25 mg capsule Discontinued 25 mg PO AT BEDTIME as needed for sleep 14 June 02, 2022 12:30pm July 06, 2022 2:47pm Start: 05-11-2022 End: 07-06-2022 Start: 05-11-2022 End: 07-06-2022 Start: 05-10-2022 End: 05-11-2022 take 1 capsule by mouth at bedtime as needed for anxiety Hydroxyzine Pamoate 50 mg capsule Discontinued 50 mg PO AT BEDTIME as needed for anxiety 30 0 May 10, 2022 1:00am May 11, 2022 11:45am Start: 05-10-2022 End: 05-11-2022 Start: 05-10-2022 End: 05-11-2022 ipratropium-albuterol 20-100 mcg/Puff aero inhaler (1 source) Start: 04-21-2013 take 1 puff(s) by inhalation every six hours as needed ipratropium-albuterol 20-100 mcg/Puff aero inhaler Inhale 1 Puff as instructed every 6 hours as needed. 1 Package 3 04/21/2013 Active Comment on above: Inhale 1 Puff as ins tructed every 6 hours as needed. 24 hr isosorbide mononitrate 30 mg extended release oral tablet (20 sources) Nitrate Vasodilator Start: 11-20-2022 End: 10-16-2024 take 1 tablet by mouth once daily, then take 1 tablet by mouth every twenty-four hours Isosorbide Mononitrate 30 mg tablet extended release 24 hr Discontinued 30 mg PO DAILY 30 December 10, 2023 1:04pm October 16, 2024 1:15pm heart Lactobacillus Combination No.4 (Probiotic) 3 billion cell capsule (9 sources) Start: 12-02-2022 End: 08-03-2023 take 3 capsules by mouth once daily Lactobacillus Combination No.4 (Probiotic) 3 billion cell capsule Discontinued 3000 NMA PO DAILY December 02, 2022 12:00am August 03, 2023 2:31pm administer with a meal Start: 12-02-2022 End: 08-03-2023 take 3 capsules [...] ml leuprolide acetate 60 mg/ml prefilled syringe (17 sources) Gonadotropin Releasing Hormone Receptor Agonist Start: 12-07-2022 End: 07-17-2024 Leuprolide (3 Month) (Eligard (3 Month)) 22.5 mg syringe Discontinued 22.5 mg SC every 3 months December 07, 2022 12:00am July 17, 2024 1:19pm Start: 12-07-2022 End: 07-17-2024 levoFLOXacin 750 mg oral tablet (20 sources) Quinolone Antimicrobial Start: 10-28-2022 End: 11-04-2022 take 1 tablet by mouth every twenty-four hours Levofloxacin 750 mg tablet Discontinued 750 mg PO Q24H 7 7 0 October 28, 2022 12:00am November 03, 2022 12:00am November 04, 2022 12:03am Start: 08-08-2022 End: 10-07-2022 take 1 tablet by mouth once daily Levofloxacin 750 mg tablet Discontinued 750 mg PO DAILY 6 0 August 08, 2022 12:00am October 07, 2022 1:21pm Start: 08-08-2022 End: 10-07-2022 Start: 06-16-2021 End: 06-21-2021 take 1 tablet by mouth every twenty-four hours Levofloxacin 500 mg tablet Discontinued 500 mg PO Q24H 5 5 0 June 16, 2021 1:00am June 20, 2021 1:00am June 21, 2021 1:05am Start: 04-03-2021 End: 04-08-2021 take 1 tablet by mouth every twenty-four hours Levofloxacin 500 mg tablet Discontinued 500 mg PO Q24H 5 5 0 April 03, 2021 1:00am April 07, 2021 1:00am April 08, 2021 1:01am Start: 07-01-2019 End: 12-11-2019 take 1 tablet by mouth once daily Levofloxacin 500 MG tablet Discontinued 500 mg PO DAILY 4 0 July 01, 2019 1:00am December 11, 2019 1:05pm Start: 07-01-2019 End: 12-11-2019 Start: 01-19-2019 End: 01-24-2019 take 1 tablet by mouth every twenty-four hours Levofloxacin (Levaquin) 500 mg tablet Discontinued 500 mg PO Q24H 5 5 0 January 19, 2019 12:00am January 23, 2019 12:00am January 24, 2019 12:08am Start: 05-12-2018 End: 05-19-2018 take 1 tablet by mouth every twenty-four hours Levofloxacin (Levaquin) 750 mg tablet Discontinued 750 mg PO Q24H 7 7 0 May 12, 2018 1:00am May 18, 2018 1:00am May 19, 2018 1:06am Start: 08-30-2017 End: 09-04-2017 take 1 tablet by mouth every twenty-four hours Levofloxacin (Levaquin) 500 mg tablet Discontinued 500 mg PO Q24H 5 5 0 August 30, 2017 12:00am September 03, 2017 12:00am September 04, 2017 12:08am Start: 06-14-2017 End: 06-21-2017 take 1 tablet by mouth every twenty-four hours Levofloxacin (Levaquin) 500 mg tablet Discontinued 500 mg PO Q24H 7 7 0 June 14, 2017 1:00am June 20, 2017 1:00am June 21, 2017 1:07am Start: 08-12-2015 End: 09-10-2015 LEVAQUIN 750 MG TABS 1 tab d ialy for 5 days LEVOFLOXACIN [id number] Monalisa Lyon CNP Start: 08-05-2015 End: 12-16-2016 take 1 tablet by mouth once daily LEVAQUIN 500 MG TABS One tablet PO daily LEVOFLOXACIN [id number] Dee Almeida LPN loperamide hydrochloride 2 mg oral capsule (20 sources) Opioid Agonist Start: 06-29-2019 End: 12-20-2020 take 1 capsule by mouth every two hours as needed for diarrhea Loperamide (Anti-Diarrheal (Loperamide)) 2 MG capsule Discontinued 2 mg PO EVERY 2 HOURS NEEDED as needed for Diarrhea June 29, 2019 1:00am December 20, 2020 11:24am short bowel syndrome loperamide HCl ( IMODIUM) 2 mg tab Take 2 mg by mouth as needed (diarrhea). 0 Active Comment on above: Take 2 mg by mouth a s needed (diarrhea). LORazepam 0.5 mg oral tablet (20 sources) Benzodiazepine Start: 3 End: 3 take 2 tablets by mouth at bedtime as needed for sleep Lorazepam (Ativan) 0.5 mg tablet Discontinued 1 mg PO AT BEDTIME as needed for sleep 42 0 May 08, 2022 4:20pm June 02, 2022 12:30pm Insomnia Primary insomnia Start: 04-02-2021 End: 06-17-2022 take 0.5-1 mg by mouth at bedtime as needed for sleep Lorazepam (Ativan) 0.5 mg tablet Discontinued 0.5 - 1 mg PO AT BEDTIME as needed for sleep 14 0 June 02, 2022 12:24pm June 17, 2022 2:18pm Insomnia Primary insomnia Start: 04-02-2021 End: 06-12-2021 take 1.5 mg by mouth at bedtime Lorazepam Discontinued 1.5 MG PO AT BEDTIME 90 April 30, 2021 2:04pm May 26, 2021 2:58pm Start: 06-11-2020 End: 03-29-2021 Start: 06-11-2020 End: 03-29-2021 take 1.5 mg by mouth at bedtime Lorazepam Discontinued 1.5 MG PO AT BEDTIME 90 February 27, 2021 2:32pm March 29, 2021 1:01am Start: 06-29-2019 End: 06-08-2020 Start: 06-29-2019 End: 06-08-2020 take 1.5 mg by mouth at bedtime Lorazepam Discontinued 1.5 MG PO AT BEDTIME April 25, 2020 1:00am May 09, 2020 5:21pm Start: 05-07-2016 take 1 tablet by kevin th three times daily ATIVAN 0.5 MG TABS One tablet by mouth three times daily LORAZEPAM [id number] Dee Almeida LPN Start: 04-10-2014 End: 05-08-2022 take 3 tablets by mouth at bedtime as needed for sleep Lorazepam (Ativan) 0.5 mg tablet Discontinued 1.5 mg PO AT BEDTIME as needed for sleep April 07, 2022 4:51pm May 08, 2022 4:22pm Insomnia Primary insomnia take 1 tablet by kevin once daily LORAZEPAM 1 MG TABS One tablet by mouth daily LORAZEPAM [id number] Monalisa Lyon CNP Comment on above: Take three tablets b y mouth at bedtime as needed. losartan potassium 100 mg oral tablet (20 sources) Angiotensin 2 Receptor Kimberley Start: 07-21-2021 End: 12-29-2021 Losartan 100 mg tablet Discontinued 50 mg PO TWICE A DAY July 21, 2021 10:07am December 29, 2021 2:59pm Start: 04-17-2021 End: 12-29-2021 take 1 tablet by mouth once daily Losartan 100 mg tablet Discontinued 100 mg PO DAILY 90 April 17, 2021 1:00am July 21, 2021 10:08am Start: 04-17-2021 End: 12-29-2021 take 50 mg by mouth twice daily Losartan Discontinued 50 MG PO TWICE A DAY July 21, 2021 10:07am December 29, 2021 2:59pm Start: 03-17-2021 End: 04-17-2021 take 2 tablets by mouth once daily Losartan 50 mg tablet Discontinued 100 mg PO DAILY 90 March 17, 2021 2:13pm April 17, 2021 2:35pm bp Start: 03-04-2021 End: 03-17-2021 Losartan 50 mg tablet Discon tinued 75 mg PO DAILY 90 March 04, 2021 11:01am March 17, 2021 2:14pm bp Start: 08-09-2020 End: 03-04-2021 take 1 tablet by mouth once daily Losartan 50 mg tablet Discontinued 50 mg PO DAILY August 09, 2020 11:19am March 04, 2021 11:01am bp Start: 08-09-2020 End: 04-17-2021 Start: 08-09-2020 End: 04-17-2021 take 100 mg by mouth once daily Losartan Discontinued 100 MG PO DAILY March 17, 2021 2:13pm April 17, 2021 2:35pm Start: 05-15-2020 End: 08-09-2020 take 1 tablet by mouth once daily Losartan 25 MG tablet Discontinued 25 mg PO DAILY June 18, 2020 3:47pm August 09, 2020 11:20am bp Magnesium (20 sources) Start: 12-02-2022 End: 01-07-2024 take 1 tablet by mouth once daily Magnesium 250 mg tablet Discontinued 250 mg PO DAILY December 02, 2022 12:00am January 07, 2024 1:13pm Start: 12-02-2022 take 250 mg by mouth [...] MG PO DAILY April 30, 2022 12:00am mirtazapine 15 mg oral tablet (20 sources) Start: 04-19-2024 End: 04-30-2024 take 1 tablet by mouth at bedtime Mirtazapine 15 mg tablet Discontinued 15 mg PO AT BEDTIME 90 April 19, 2024 3:08pm April 30, 2024 11:10am Start: 08-17-2022 End: 08-03-2023 take 2 tablets by mouth once daily, then take 3 tablets by mouth once daily at bedtime Mirtazapine 7.5 mg tablet Discontinued 7.5 mg PO AT BEDTIME 90 August 17, 2022 12:00am August 03, 2023 2:31pm Take a 15 mg tablet for total nightly dose of 22.5mg QHS Start: 06-24-2022 End: 03-21-2024 take 1 tablet by mouth at bedtime Mirtazapine 15 mg tablet Discontinued 15 mg PO AT BEDTIME 90 December 29, 2023 12:50pm March 21, 2024 2:31pm Start: 06-17-2022 End: 06-24-2022 take 1 tablet by mouth at bedtime Mirtazapine 7.5 mg tablet Discontinued 7.5 mg PO AT BEDTIME 30 June 17, 2022 1:00am June 24, 2022 1:58pm Start: 06-17-2022 End: 06-24-2022 Comment on above: Take 15 mg by mouth daily at bedtime. 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 Start: 4 End: 4 take 1 tablet by mouth once daily in the evening Montelukast 10 mg tablet Discontinued 10 mg PO EVERY EVENING May 12, 2023 1:00am January 07, 2024 1:13pm Multivitamin preparation (20 sources) Start: End: take 2 tablets by mouth once daily Multivitamin Discontinued 2 TABLET PO DAILY April 30, 2022 1:00am August 03, 2023 2:31pm Start: 04-30-2022 take 2 tablets by mo uth once daily Multivitamin Active 2 TABLET PO DAILY April 30, 2022 1:00am Start: 04-30-2022 take 2 tablets by mo uth once daily Multivitamin Active 2 TABLET PO DAILY April 30, 2022 12:00am Multivitamin tablet (2 sources) Start: 04-30-2022 End: 08-03-2023 Multivitamin tablet Discontinued 2 {tbl} PO DAILY April 30, 2022 1:00am August 03, 2023 2:31pm nitroglycerin 0.4 mg sublingual tablet (20 sources) Nitrate Vasodilator Start: 11-16-2022 End: 08-02-2024 Nitroglycerin 0.4 mg Tablet, Sublingual Discontinued 0.4 mg SL Q5M as needed for Cardiac/Chest Pain November 16, 2022 12:00am August 02, 2024 10:09am Start: 11-16-2022 End: 08-02-2024 Start: 11-16-2022 Nitroglycerin Active 0.4 MG SL Q5M November 16, 2022 12:00am Start: 11-16-2022 Start: 12-11-2010 nitroglycerin sublingual (NITROSTAT) 0.4 mg SUBLINGUAL SL tablet Dissolve 1 tablet under the tongue as needed. 1 Bottle of 25 3 12/11/2010 Active End: 05-07-2016 NITROSTAT 0.4 MG SUBL as nee ded NITROGLYCERIN [id number] Monalisa Lyon CNP Comment on above: Dissolve 1 tablet un camelia the tongue as needed. Sufib-0o-Sbl-Epa-Fish Oil-D3 (20 sources) Start: 05-15-2020 End: 12-20-2020 Qxohm-6y-Tbn-Epa-Fish Oil-D3 Discontinued 1 EACH PO DAILY May 15, 2020 12:00am December 20, 2020 10:24am Start: 05-15-2020 End: 12-20-2020 Fognq-1s-Air-Epa-Fish Oil-D3 Discontinued 1 EACH PO DAILY May 15, 2020 1:00am December 20, 2020 11:24am Xnpaf-3i-Ywl-Epa-Fish Oil-D3 1 EACH capsule (2 sources) Start: 05-15-2020 End: 12-20-2020 take 1 capsule by mouth once daily Bscbw-4y-Ukj-Epa-Fish Oil-D3 1 EACH capsule Discontinued 1 NMA PO DAILY May 15, 2020 1:00am December 20, 2020 11:24am supplement oseltamivir 30 mg oral capsule (20 sources) Neuraminidase Inhibitor Start: 07-01-2019 End: 04-22-2020 take 1 capsule by mouth twice daily Oseltamivir 30 MG capsule Discontinued 30 mg PO TWICE A DAY 7 0 July 01, 2019 1:00am April 22, 2020 1:52pm OTC NUTRITIONAL SUPPLEMENT (1 source) Start: 03-01-2009 OTC NUTRITIONAL SUPPLEMENT red yeast rice 1200 mg daily 0 03/01/2009 Active Comment on above: red yeast rice 1200 mg daily piroxicam 10 mg oral capsule (20 sources) Nonsteroidal Anti-inflammator y Drug Start: 08-12-2012 End: 04-22-2020 take 1 capsule by mouth once daily Piroxicam 10 MG capsule Discontinued 10 mg PO DAILY February 14, 2013 12:00am April 22, 2020 1:58pm anti inflammatory Comment on above: Take 1 capsule by [facility] once daily. potassium chloride 20 meq extended release oral tablet (20 sources) Start: 04-19-2024 End: 04-30-2024 Potassium Chloride 20 mEq tablet extended release Discontinued 20 meq PO TWICE A DAY 90 2 April 19, 2024 1:00am April 30, 2024 11:10am Take 40 twice daily x 5 days then 20 twice daily Start: 10-20-2023 End: 01-07-2024 take 1 tablet by mouth once daily Potassium Chloride 20 mEq tablet extended release Discontinued 20 meq PO DAILY 30 October 20, 2023 12:00am January 07, 2024 1:13pm predniSONE 50 mg oral tablet (20 sources) Corticosteroid Start: 04-30-2024 End: 06-14-2024 take 1 tablet by mouth once daily Prednisone 50 mg tablet Discontinued 50 mg PO DAILY 5 April 30, 2024 1:00am June 14, 2024 2:46pm Start: 01-21-2024 End: 04-30-2024 Prednisone 10 mg tablet Discontinued 10 mg PO daily 30 March 21, 2024 1:00am April 10, 2024 4:21pm take 4 tabs for three days, then 3 tabs for three days, then 2 tabs for three days, then 1 tab for 3 days Start: 12-24-2022 End: 05-12-2023 Prednisone 10 mg tablet Discontinued 10 mg PO daily 30 December 24, 2022 12:00am May 12, 2023 2:43pm take 4 tabs for three days, then 3 tabs for three days, then 2 tabs for three days, then 1 tab for 3 days Start: 10-28-2022 End: 11-10-2022 take 3 tablets by mouth once daily at mealtime Prednisone 20 mg tablet Discontinued 60 mg PO daily 15 October 28, 2022 12:00am November 10, 2022 1:42pm administer with food or milk Start: 10-28-2022 End: 11-10-2022 Start: 08-08-2022 End: 10-07-2022 take 2 tablets by mouth once daily Prednisone 20 mg tablet Discontinued 40 mg PO DAILY 8 August 08, 2022 12:00am October 07, 2022 1:21pm Start: 08-08-2022 End: 10-07-2022 Start: 08-08-2022 End: 10-07-2022 take 40 mg by mouth once daily Prednisone Discontinued 40 MG PO DAILY August 08, 2022 12:00am October 07, 2022 1:21pm Start: 02-25-2021 End: 04-30-2022 Prednisone 10 mg tablet Discontinued 10 mg PO NEEDED as needed for COPD EXACERBATION 30 June 16, 2021 12:11pm April 30, 2022 3:04pm take 4 tabs for three days, then 3 tabs for three days, then 2 tabs for three days, then 1 tab for 3 days Start: 10-16-2020 End: 11-06-2020 Prednisone 10 mg tablet Discontinued 10 mg PO daily 30 0 October 16, 2020 12:00am November 06, 2020 1:48pm take 4 tabs for three days, then 3 tabs for three days, then 2 tabs for three days, then 1 tab for 3 days Start: 07-01-2019 End: 12-11-2019 Prednisone 10 mg tablet Discontinued 10 mg PO daily 30 0 July 04, 2019 1:00am December 11, 2019 1:06pm take 4 tabs for three days, then 3 tabs for three days, then 2 tabs for three days, then 1 tab for 3 days Start: 07-01-2019 End: 07-04-2019 Prednisone 10 MG tablet Discontinued 0 mg PO DAILY July 01, 2019 1:00am July 04, 2019 3:58pm Please contact the information source for Taper Schedule details. Start: 01-17-2019 End: 06-13-2019 Prednisone 10 mg tablet Discontinued 10 mg PO daily 30 0 January 17, 2019 12:00am June 13, 2019 12:10pm take 4 tabs for three days, then 3 tabs for three days, then 2 tabs for three days, then 1 tab for 3 days Start: 05-12-2018 End: 01-10-2019 Prednisone 10 mg tablet Discontinued 10 mg PO daily 30 0 May 19, 2018 1:00am January 10, 2019 11:15am take 4 tabs for three days, then 3 tabs for three days, then 2 tabs for three days, then 1 tab for 3 days Start: 06-09-2017 End: 01-10-2018 Prednisone 10 mg tablet Discontinued 10 mg PO daily 30 0 August 30, 2017 12:00am January 10, 2018 1:07pm take 4 tabs for three days, then 3 tabs for three days, then 2 tabs for three days, then 1 tab for 3 days Start: 08-28-2016 End: 09-09-2016 PREDNISONE 10 MG TABS Take 4 tabs by mouth for 3 days, then 3 tabs by mouth for 3 days, then 2 tabs by mourth for 3 days, then 1 tab by mouth for 3 days. PREDNISONE [id number] Monalisa Lyon [facility] Start: 05-07-2016 End: 05-19-2016 PREDNISONE 10 MG TABS Take 4 tabs by mouth for 3 days, then 3 tabs by mouth for 3 days, then 2 tabs by mourth for 3 days, then 1 tab by mouth for 3 days. PREDNISONE [id number] Monalisa Lyon [facility] Start: 02-14-2016 End: 02-26-2016 PREDNISONE 10 MG TABS Take 4 tabs by mouth for 3 days, then 3 tabs by mouth for 3 days, then 2 tabs by mourth for 3 days, then 1 tab by mouth for 3 days. PREDNISONE [id number] Monalisa Lyon [facility] Start: 08-05-2015 End: 08-26-2015 PREDNISONE 10 MG TABS Take 4 tabs by mouth for 3 days, then 3 tabs by mouth for 3 days, then 2 tabs by mourth for 3 days, then 1 tab by mouth for 3 days. PREDNISONE [id number] Monalisa [facility] Red Rice Yeast (20 sources) Start: 06-29-2019 End: 12-20-2020 Red Rice Yeast Discontinued 2 NMA PO DAILY June 29, 2019 1:00am December 20, 2020 11:24am cholesterol Start: 06-29-2019 End: 12-20-2020 take 2 capsules by mouth once daily Red Rice Yeast Discontinued 2 CAP PO DAILY June 29, 2019 12:00am December 20, 2020 10:24am Start: 06-29-2019 End: 12-20-2020 take 2 capsules by mouth once daily Red Rice Yeast Discontinued 2 CAP PO DAILY June 29, 2019 1:00am December 20, 2020 11:24am red yeast rice 600 mg oral tablet (20 sources) Start: 06-12-2021 End: 04-30-2022 take 1 tablet by mouth once daily Red Yeast Rice 600 mg Tablet Discontinued 1200 mg PO DAILY June 12, 2021 1:00am April 30, 2022 3:05pm Start: 06-12-2021 End: 04-30-2022 Start: 05-07-2016 take 1 capsule by mo [facility] once daily RED YEAST RICE CAPS 1000 mg po once daily RED YEAST RICE EXTRACT CAPS [id number] 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 ticagrelor 90 mg oral tablet (19 sources) Start: 3 End: 3 take 1 tablet by mouth every twelve hours Ticagrelor 90 mg tablet Discontinued 90 mg PO Q12H 60 2 November 27, 2022 12:00am December 28, 2022 9:38am ubidecarenone 75 mg oral capsule (16 sources) Start: 3 End: 4 Coenzyme Q10 (Ultra Coq10) 75 mg capsule Discontinued 75 mg PO DAILY December 18, 2022 12:00am August 03, 2023 2:30pm verapamil hydrochloride 240 mg extended release oral tablet (20 sources) Calcium Channel Kimberley Start: End: 5 take 1 tablet by mouth at bedtime Verapamil 240 mg tablet extended release Discontinued 240 mg PO AT BEDTIME 90 May 05, 2023 1:57pm May 05, 2024 12:58pm heart Start: 04-10-2021 End: 05-05-2024 Start: 04-10-2021 End: 04-28-2022 Start: 06-29-2019 End: 04-10-2021 take 1 tablet by mouth at bedtime Verapamil 120 mg tablet extended release Discontinued 120 mg PO AT BEDTIME 90 3 November 25, 2020 8:20am April 10, 2021 9:31am heart Start: 02-27-2019 End: 04-10-2021 verapamil (CALAN ) 120 MG tablet Take 120 mg by mouth 0 Active take 1 tablet by kevin th once daily in the evening VERELAN PM 200 MG [id number] One tablet by mouth daily VERAPAMIL HCL [id number] 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 [...] CAP PO DAILY April 30, 2022 12:00am Vitamin B Complex tablet (2 sources) Start: 12-02-2022 End: 08-03-2023 Vitamin B Complex tablet Dis continued 1 {tbl} PO DAILY December 02, 2022 12:00am August 03, 2023 2:31pm Problems Active Problems Problem Classification Problem Date Documented Date Episodic/Chronic Abdominal hernia (20 sources) Left inguinal hernia ; Translations: [Unilateral inguinal hernia, without obstruction or gangrene, not specified as recurrent] Onset: 09-21-19 08 10-01-2021 Episodic Comment on above: left Abdominal pain (20 sources) Abdominal pain; Translations: [Unspecified abdominal pain] Onset: 08-10-19 25 08-08-2020 Episodic Acquired foot deformities (20 sources) Acquired deformity of toe; Translations: [Acquired deformities of toe(s), unspecified, unspecified foot] 10-21-2022 Episodic Acute myocardial infarction (20 sources) Myocardial infarction; Translations: [Non-ST elevation (NSTEMI) myocardial infarction] Onset: 11-15-19 23 11-14-2022 Chronic Anal and rectal conditions (10 sources) Radiation proctitis; Translations: [Radiation proctitis] 08-02-2024 Episodic Aortic; peripheral; and visceral artery aneurysms (20 sources) Abdominal aortic aneurysm; Translations: [Abdominal aortic aneurysm, without rupture] 10-01-2021 Chronic Asthma (20 sources) Moderate persistent asthma; Translations: [Asthma] Onset: 06-12-19 15 06-12-2014 Chronic Cancer of colon (1 source) Malignant tumor of colon; Translations: [Malignant neoplasm of colon, unspecified] Onset: 09-21-19 08 09-21-2007 Chronic Cancer of colon (20 sources) History of malignant neoplasm of colon; Translations: [Personal history of other malignant neoplasm of large intestine] Onset: 08-25-19 25 06-11-2017 Episodic Cancer of prostate (20 sources) Malignant tumor of prostate; Translations: [Malignant neoplasm of prostate] Onset: 09-09-19 25 10-07-2022 Chronic Cancer of rectum and anus (1 source) Malignant tumor of rectum; Translations: [Malignant neoplasm of rectum] Onset: 12-05-19 08 03-03-2019 Chronic Cancer of rectum and anus (7 sources) Personal history of other malignant neoplasm of rectum, rectosigmoid junction, and anus; Translations: [History of malignant neoplasm of digestive organ] Onset: 12-22-19 13 05-10-2014 Episodic Cardiac dysrhythmias (20 sources) Tachycardia; Translations: [Sinus bradycardia] Onset: 06-12-19 15 06-12-2014 Episodic Chronic kidney disease (20 sources) Chronic kidney disease stage 3B ; Translations: [Stage 3b chronic kidney disease] 11-14-2022 Chronic Chronic obstructive pulmonary disease and bronchiectasis (20 sources) Moderate chronic obstructive pulmonary disease; Translations: [Acute exacerbation of chronic obstructive airways disease] Onset: 02-28-20 12-20-2015 Chronic Comment on above: FEV1 59% of predicte d Chronic obstructive pulmonary disease and bronchiectasis (10 sources) Bronchitis; Translations: [Bronchitis, not specified as acute or chronic] 04-19-2024 Episodic Congestive heart failure; nonhypertensive (20 sources) Heart failure with reduced ejection fraction; Translations: [Unspecified systolic (congestive) heart failure] 12-18-2022 Chronic Coronary atherosclerosis and other heart disease (20 sources) Coronary atherosclerosis; Translations: [History of acute ST segment elevation myocardial infarction] Onset: 02-28-20 05 Chronic Comment on above: PCI-JIM-Mid RCA 05/27; PCI-JIM-Mid LAD, JIM-Prox LCx and POBA-OM1 05/30/2007; XLC-Xwlf-UGS, JIM-Mid LCx, and LCx Posterior lateral extension ; JIM-ISR-Mid LAD 06/07/20;JIM-Resolute [place] 2.49V64vi to proximal LAD -11/27/2022. Deficiency and other anemia (15 sources) Anemia; Translations: [Anemia, unspecified] 2023 Episodic Comment on above: borderline Deficiency and other anemia (1 source) Anemia, unspecified; Translations: [Anemia, unspecified] Onset: 08-08-19 Episodic Disorders of lipid metabolism (20 sources) Hyperlipidemia; Translations: [Hyperlipidemia, unspecified] Onset: 02-28-20 05 Chronic Esophageal disorders (1 source) Gastroesophageal reflux disease; Translations: [Gastro-esophageal reflux disease without esophagitis] Onset: 02-28-20 05 02-27-2005 Chronic Essential hypertension (20 sources) Essential hypertension; Translations: [Essential (primary) hypertension] Onset: 02-28-20 05 Chronic Fever of unknown origin (20 sources) Fever; Translations: [Fever, unspecified] 08-08-2022 Episodic Fluid and electrolyte disorders (20 sources) Hypokalemia; Translations: [Hypokalemia] Onset: 07-29-19 25 11-16-2022 Episodic Fracture of lower limb (20 sources) Closed fracture of great toe; Translations: [Displaced unspecified fracture of right great toe, initial encounter for closed fracture] 10-21-2022 Episodic Gastrointestinal hemorrhage (20 sources) Rectal hemorrhage; Translations: [Hemorrhage of anus and rectum] Onset: 08-25-19 25 03-21-2024 Episodic Genitourinary symptoms and ill-defined conditions (20 sources) History of renal insufficiency; Translations: [Personal history of other diseases of urinary system] 11-01-2022 Episodic Hyperplasia of prostate (20 sources) Benign prostatic hyperplasia; Translations: [Benign prostatic hyperplasia without lower urinary tract symptoms] Onset: 12-07-19 08 07-06-2022 Chronic Intestinal obstruction without hernia (20 [...] and stenosis of left carotid artery] Onset: 06-08-19 Chronic Open wounds of head; neck; and trunk (20 sources) Laceration - injury; Translations: [Laceration] 07-31-2022 Episodic Osteoarthritis (1 source) Osteoarthrosis of the carpometacarpal joint of the thumb; Translations: [Unilateral primary osteoarthritis of first carpometacarpal joint, left hand] Onset: 03-03-2003-03-2019 Chronic Other aftercare (20 sources) Patient encounter status; Translations: [Encounter for therapeutic drug level monitoring] 12-29-2021 Episodic Other aftercare (5 sources) Encounter for therapeutic drug level monitoring; Translations: [Encounter for therapeutic drug monitoring] Episodic Other aftercare (10 sources) Long-term current use of diuretic; Translations: [Encounter for therapeutic drug level monitoring] 12-01-2022 Episodic Other circulatory disease (20 sources) History of endovascular stent graft for repair of abdominal aortic aneurysm; Translations: [Presence of other vascular implants and grafts] Onset: 06-25-1908-08-2020 Chronic Comment on above: Infrarenal abdominal aortic aneurysm stent graft repair Other circulatory disease (20 sources) Presence of other vascular implants and grafts; Translations: [Blood vessel replaced by other means] Onset: 06-25-19 Chronic Other connective tissue disease (20 sources) [...] finger (acquired)] 04-14-2023 Episodic Other gastrointestinal disorders (9 sources) Vascular ectasia of colon; Translations: [Angiodysplasia of colon without hemorrhage] 08-09-2024 Episodic Other gastrointestinal disorders (1 source) Angiodysplasia of colon without hemorrhage; Translations: [Angiodysplasia of colon without hemorrhage] Onset: 08-25-19 Episodic Other lower respiratory disease (20 sources) Hypoxia; Translations: [Hypoxemia] 05-07-2020 Episodic Comment on above: 3 L nasal cannula ox ygen with sleep Other lower respiratory disease (17 sources) Dyspnea; Translations: [Shortness of breath] 12-18-2022 Episodic Other lower respiratory disease (11 sources) Other forms of dyspnea; Translations: [Chronic dyspnea] Onset: 05-25-19 25 04-19-2024 Episodic Other lower respiratory disease (20 sources) Multiple nodules of lung; Translations: [Other nonspecific abnormal finding of lung field] 05-04-2024 Episodic Other non-traumatic joint disorders (15 sources) Swollen ankle region; Translations: [Effusion, unspecified ankle] 2023 Episodic Other screening for suspected conditions (not mental disorders or infectious disease) (20 sources) Thallium stress test abnormal; Translations: [Raised prostate specific antigen] Onset: 07-11-19 23 06-07-2020 Episodic Comment on above: Wall thickening at t he gastroesophageal junction and gastric cardia region with a small subserosal fluid collectionposteriorly at the gastroesophageal junction. Other upper respiratory disease (1 source) Allergic rhinitis; Translations: [Allergic rhinitis, unspecified] Onset: 07-30-19 07 07-29-2006 Chronic Other upper respiratory disease (20 sources) Bleeding from nose; Translations: [Epistaxis] 10-01-2021 Episodic Other upper respiratory disease (10 sources) Acute bronchospasm; Translations: [Acute bronchospasm] 04-19-2024 Episodic Other upper respiratory infections (1 source) Chronic sinusitis; Translations: [Chronic sinusitis, unspecified] Onset: 07-30-19 07 07-29-2006 Chronic Residual codes; unclassified (1 source) Hypoxia; Translations: [Idiopathic sleep related nonobstructive alveolar hypoventilation] Onset: 03-03-20 19 03-03-2019 Chronic Residual codes; unclassified (20 sources) Insomnia; Translations: [Insomnia, unspecified] Onset: 02-28-20 05 02-26-2021 Episodic Residual codes; unclassified (20 sources) Insomnia, unspecified; Translations: [Insomnia, unspecified] Episodic Residual codes; unclassified (11 sources) Other specified postprocedural states; Translations: [Personal history of surgery to other organs] Episodic Secondary malignancies (1 source) Secondary malignant neoplasm of intra-abdominal lymph nodes; Translations: [Secondary and unspecified malignant neoplasm of intra-abdominal lymph nodes] Onset: 12-06-1912-06-2007 Chronic Spondylosis; intervertebral disc disorders; other back problems (20 sources) Low back pain; Translations: [Low back pain] 10-01-2021 Episodic Superficial injury; contusion (20 sources) Subungual hematoma of great toe of right foot; Translations: [Contusion of right great toe with damage to nail, initial encounter] 10-21-2022 Episodic Unclassified (1 source) Acidosis, unspecified; Translations: [Acidosis, unspecified] Onset: 08-09-19 Past or Other Problems Problem Classification Problem [...] 05-12-2024 12-18-2022 Episodic Other lower respiratory disease (1 source) Other nonspecific abnormal finding of lung field; Translations: [Other nonspecific abnormal finding of lung field] Onset: 06-23-2024 Episodic Results Test Name Value Interpretation Reference Range Facility Pulmonary Visit Reporton Pulmonary Visit Report Normal [facility] Chest without Contraston Chest without Contrast Normal [facility] PSA,Total- Diagnosticon 05-0 PSA, DIAGNOSTIC < 0.02 Normal 0.00-4.00 [facility] Comment on above: Result Comment: This test was performed using the [employer] tPSAmethod. Measured values of a patient??sample can varydepending on the testing procedure used. PSA valuesdetermined on patient samples by different testingprocedures cannot be used interchangeably. If there is achange in PSA assays while monitoring therapy, sequentialtesting should be performed to confirm baseline values. Performed By: #### L [id number] ####[facility] [address] [place], [address] Basic Metabolic Profile (BMP )on 08-12-2024 BUN Normal 4-19 [facility] Comment on above: Result Comment: Canc elled via OM: Order cancelled - Patient discharged Performed By: #### L 500.2500, L100.0100 ####[facility] [address] [place], [address] BUN/CRE Normal 10-20 [facility] Comment on above: Result Comment: Canc elled via OM: Order cancelled - Patient discharged Performed By: #### L 500.2500, L100.0100 ####[facility] [address] [place], [address] Calcium Normal 7.6-11.0 [facility] Comment on above: Result Comment: Canc elled via OM: Order cancelled - Patient discharged Performed By: #### L 500.2500, L100.0100 ####[facility] [address] [place], [address] CL Normal 98-108 [facility] Comment on above: Result Comment: Canc elled via OM: Order cancelled - Patient discharged Performed By: #### L 500.2500, L100.0100 ####[facility] [address] [place], [address] CO2 Normal 21.0-32.0 [facility] Comment on above: Result Comment: Canc elled via OM: Order cancelled - Patient discharged Performed By: #### L 500.2500, L100.0100 ####[facility] [address] [place], [address] CREAT,SERUM Normal 0.70-1.20 [facility] Comment on above: Result Comment: Canc elled via OM: Order cancelled - Patient discharged Performed By: #### L 500.2500, L100.0100 ####[facility] [address] [place], [address] eGFR Normal >60 [facility] Comment on above: Result Comment: Canc elled via OM: Order cancelled - Patient discharged Performed By: #### L 500.2500, L100.0100 ####[facility] [address] [place], [address] GAP Normal 5-15 [facility] Comment on above: Result Comment: Canc elled via OM: Order cancelled - Patient discharged Performed By: #### L 500.2500, L100.0100 ####[facility] [address] [place], [address] GLU Normal 70-99 [facility] Comment on above: Result Comment: Canc elled via OM: Order cancelled - Patient discharged Performed By: #### L 500.2500, L100.0100 ####[facility] [address] [place], [address] Potassium Normal 3.3-5.1 [facility] Comment on above: Result Comment: Canc elled via OM: Order cancelled - Patient discharged Performed By: #### L 500.2500, L100.0100 ####[facility] [address] [place], [address] Basic Metabolic Profile (BMP) Normal 133-145 [facility] Comment on above: Result Comment: Canc elled via OM: Order cancelled - Patient discharged Performed By: #### L 500.2500, L100.0100 ####[facility] [address] [place], [address] CBC W/Diff, Automatedon 04- Absolute Neut Normal 2.0-7.7 [facility] Comment on above: Result Comment: Canc elled via OM: Order cancelled - Patient discharged Performed By: #### L 500.2500, L100.0100 ####[facility] [address] [place], [address] HCT Normal 40-54 [facility] Comment on above: Result Comment: Canc elled via OM: Order cancelled - Patient discharged Performed By: #### L 500.2500, L100.0100 ####[facility] [address] [place], [address] HGB Normal 13.0-16.5 [facility] Comment on above: Result Comment: Canc elled via OM: Order cancelled - Patient discharged Performed By: #### L 500.2500, L100.0100 ####[facility] [address] [place], [address] MCH Normal 27.0-32.0 [facility] Comment on above: Result Comment: Canc elled via OM: Order cancelled - Patient discharged Performed By: #### L 500.2500, L100.0100 ####[facility] [address] [place], [address] MCHC Normal 32-36 [facility] Comment on above: Result Comment: Canc elled via OM: Order cancelled - Patient discharged Performed By: #### L 500.2500, L100.0100 ####[facility] [address] [place], [address] MCV Normal 80-94 [facility] Comment on above: Result Comment: Canc elled via OM: Order cancelled - Patient discharged Performed By: #### L 500.2500, L100.0100 ####[facility] [address] [place], [address] NEUT% Normal 47-70 [facility] Comment on above: Result Comment: Canc elled via OM: Order cancelled - Patient discharged Performed By: #### L 500.2500, L100.0100 ####[facility] [address] [place], [address] PLT Normal 150-450 [facility] Comment on above: Result Comment: Canc elled via OM: Order cancelled - Patient discharged Performed By: #### L 500.2500, L100.0100 ####[facility] [address] [place], [address] RBC Normal 4.6-6.2 [facility] Comment on above: Result Comment: Canc elled via OM: Order cancelled - Patient discharged Performed By: #### L 500.2500, L100.0100 ####[facility] [address] [place], [address] RDW CV Normal 11.6-14.6 [facility] Comment on above: Result Comment: Canc elled via OM: Order cancelled - Patient discharged Performed By: #### L 500.2500, L100.0100 ####[facility] [address] [place], [address] RDW SD Normal 35.1-43.9 [facility] Comment on above: Result Comment: Canc elled via OM: Order cancelled - Patient discharged Performed By: #### L 500.2500, L100.0100 ####[facility] [address] [place], [place], [address] WBC Normal 4.4-11.0 [facility] Comment on above: Result Comment: Canc elled via OM: Order cancelled - Patient discharged Performed By: #### L 500.2500, L100.0100 ####[facility] [address] [place], [place], [address] Discharge Instructionon 08-01 Discharge Instruction Normal [facility] Discharge Instruction Normal [facility] 12 Lead EKGon 08-10-2024 12 Lead EKG Normal [facility] Absolute lymphocyte countOrd ered By: Rhys Fontana on 08-10-2024 Lymphocytes Auto (Unsp spec) [#/Vol] 0.66 10*3/uL Low 0.83-4.51 [facility] Absolute neutrophil countOrd ered By: Rhys Fontana on 08-10-2024 Absolute neutrophil count 6.5 X10^3/uL 2.0-7.7 [facility] Anion gap [Moles/Vol]Ordered By: Rhys Fontana on 08-10-2024 Anion gap in Serum or Plasma 14 09-14 [facility] Anion gap in Serum or Plasma Ordered By: Rhys Fontana on 08-10-2024 Anion gap [Moles/Vol] 14 mmol/L 09-[address] [facility] Automated lymphocyte count a s percentage of total leukocytesOrdered By: Rhys Fontana on 08-10-2024 Lymphocytes/100 WBC Auto (Unsp spec) 8.1 % Low 19-41 [facility] BUN/creatinine ratioOrdered By: Rhys Fontana on 08-10-2024 Urea nitrogen/Creatinine [Mass ratio] 16.0 mg/mg 02-19 [facility] BUN/creatinine ratio 16.0 RATIO - [facility] Basic Metabolic Profile (BMP )on 08-10-2024 BUN/CRE 16.0 RATIO Normal 02-19 [facility] Comment on above: Performed By: #### L 500.2500, L100.0100 ####[facility] [address] [place], [address] Calcium [Mass/Vol] 9.7 mg/dL Normal 7.6-11.0 [facility] Comment on above: Performed By: #### L 500.2500, L100.0100 ####[facility] [address] [place], [address] Chloride [Moles/Vol] 107 mmol/L Normal 98-108 [facility] Comment on above: Performed By: #### L 500.2500, L100.0100 ####[facility] [address] [place], [address] CO2 [Moles/Vol] 19.5 mmol/L Low 21.0-32.0 [facility] Comment on above: Performed By: #### L 500.2500, L100.0100 ####[facility] [address] [place], [address] Creatinine [Mass/Vol] 1.27 mg/dL High 0.70-1.[address] [facility] Comment on above: Performed By: #### L 500.2500, L100.0100 ####[facility] [address] [place], [address] ECRCL 39.96 ml/min Low 50-250 [facility] Comment on above: Performed By: #### L 500.2500, L100.0100 ####[facility] [address] [place], [address] GAP 14 Normal 5-15 [facility] Comment on above: Performed By: #### L 500.2500, L100.0100 ####[facility] [address] [place], [address] GFR/1.73 sq M.predicted among non-blacks MDRD (S/P/Bld) [Vol rate/Area] 57 mL/min/{1.73_m2} Low >60 [facility] Comment on above: Result Comment: mL/m in/1.73m2 CKD-EPI Creatinine Equation (2020) Performed By: #### L 500.2500, L100.0100 ####[facility] [address] [place], [address] Glucose [Mass/Vol] 119 mg/dL High 70-99 [facility] Comment on above: Performed By: #### L 500.2500, L100.0100 ####[facility] [address] [place], [address] Potassium [Moles/Vol] 3.5 mmol/L Normal 3.3-5.[address] [facility] Comment on above: Performed By: #### L 500.2500, L100.0100 ####[facility] [address] [place], [address] Sodium [Moles/Vol] 140 mmol/L Normal 133-145 [facility] Comment on above: Performed By: #### L 500.2500, L100.0100 ####[facility] [address] [place], [address] Urea nitrogen [Mass/Vol] 20 mg/dL High 4-19 [facility] Comment on above: Performed By: #### L 500.2500, L100.0100 ####[facility] [address] [place], [address] Basophil percentageOrdered B y: Rhyszac Fontana on 08-10-2024 Basophils/100 WBC (Bld) 1.0 % 0-1 [facility] Basophil percentage 1.0 % 0-1 [facility] CBC W/Diff, Automatedon 08-01 Absolute Lymph 0.66 X10 3/uL Low 0.83-4.51 [facility] Comment on above: Performed By: #### L 500.2500, L100.0100 ####[facility] [address] [place], [address] Absolute Neut 6.5 X10 3/uL Normal 2.0-7.7 [facility] Comment on above: Performed By: #### L 500.2500, L100.0100 ####[facility] [address] [place], [address] Basophils/100 WBC (Bld) 1.0 % Normal 0-1 [facility] Comment on above: Performed By: #### L 500.2500, L100.0100 ####[facility] [address] [place], [address] Eosinophils/100 WBC (Bld) 4.4 % Normal 0-5 [facility] Comment on above: Performed By: #### L 500.2500, L100.0100 ####[facility] [address] [place], [address] Erythrocyte distribution width (RBC) [Ratio] 12.1 % Normal 11.6-14.6 [facility] Comment on above: Performed By: #### L 500.2500, L100.0100 ####[facility] [address] [place], [address] Hematocrit (Bld) [Volume fraction] 34.4 % Low 40-54 [facility] Comment on above: Performed By: #### L 500.2500, L100.0100 ####[facility] [address] [place], [address] Hemoglobin (Bld) [Mass/Vol] 11.7 g/dL Low 13.0-16.5 [facility] Comment on above: Performed By: #### L 500.2500, L100.0100 ####[facility] [address] [place], [address] IG% 0.200 Normal 0.0-0.9 [facility] Comment on above: Result Comment: IG% - Immature Granulocytes (promyelocytes, myelocytes andmetamyelocytes) > 1% indicates that a LEFT SHIFT is Present. Performed By: #### L 500.2500, L100.0100 ####[facility] [address] [place], [address] Lymphocytes/100 WBC (Bld) 8.1 % Low 19-41 [facility] Comment on above: Performed By: #### L 500.2500, L100.0100 ####[facility] [address] [place], [address] MCH (RBC) [Entitic mass] 32.0 pg Normal 27.0-32.0 [facility] Comment on above: Performed By: #### L 500.2500, L100.0100 ####[facility] [address] [place], [address] MCHC (RBC) [Mass/Vol] 34.0 g/dL Normal 32-[address] [facility] Comment on above: Performed By: #### L 500.2500, L100.0100 ####[facility] [address] [place], [address] MCV (RBC) [Entitic vol] 94.0 fL Normal 80-94 [facility] Comment on above: Performed By: #### L 500.2500, L100.0100 ####[facility] [address] [place], [address] Monocytes/100 WBC (Bld) 6.8 % Normal 0-10 [facility] Comment on above: Performed By: #### L 500.2500, L100.0100 ####[facility] [address] [place], [address] Neutrophils/100 WBC (Bld) 79.5 % High 47-70 [facility] Comment on above: Performed By: #### L 500.2500, L100.0100 ####[facility] [address] [place], [address] Nucleated RBC (Bld) [#/Vol] 0 10*3/uL Normal 0-5 [facility] Comment on above: Performed By: #### L 500.2500, L100.0100 ####[facility] [address] [place], [address] Platelet mean volume (Bld) [Entitic vol] 10.4 fL Normal 6.2-12.0 [facility] Comment on above: Performed By: #### L 500.2500, L100.0100 ####[facility] [address] [place], [address] Platelets (Bld) [#/Vol] 330 10*3/uL Normal 150-450 [facility] Comment on above: Performed By: #### L 500.2500, L100.0100 ####[facility] [address] [place], [address] RBC (Bld) [#/Vol] 3.66 10*6/uL Low 4.6-6.2 [facility] Comment on above: Performed By: #### L 500.2500, L100.0100 ####[facility] [address] [place], [address] RDW SD 42.0 fl Normal 35.1-43.9 [facility] Comment on above: Performed By: #### L 500.2500, L100.0100 ####[facility] [address] [place], [address] WBC (Bld) [#/Vol] 8.2 10*3/uL Normal 4.4-11.0 [facility] Comment on above: Performed By: #### L 500.2500, L100.0100 ####[facility] [address] [place], [address] Calcium [Mass/Vol]Ordered By : Rhys Fontana on 08-10-2024 Serum or plasma calcium measurement (mass/volume) 9.7 mg/dL 7.6-11.0 [facility] Carbon dioxide, total [Moles /volume] in Central venous bloodOrdered By: Rhys Fontana on 08-10-2024 CO2 [Moles/Vol] 19.5 mmol/L Low 21.0-32.0 [facility] Carbon dioxide, total [Moles/volume] in Central venous blood 19.5 mmol/L Low 21.0-32.0 [facility] Chloride assayOrdered By: Jasmyne Fontana on 08-10-2024 Chloride [Moles/Vol] 107 mmol/L 98-108 [facility] Chloride assay 107 mmol/L 98-108 [facility] Colonoscopy Reporton 025 Colonoscopy Report Normal [facility] Creatinine [Mass/Vol]Ordered By: Rhys Fontana on 08-10-2024 Serum creatinine measurement (mass/volume) 1.27 mg/dL High 0.70-1.20 [facility] Electrocardiogram reportOrde red By: Christiano Steinberg on 08-10-2024 EKG study [facility] Work Phone: Eosinophil percentageOrdered By: Rhys Fontana on 08-10-2024 Eosinophils/100 WBC (Bld) 4.4 % 0-5 [facility] Eosinophil percentage 4.4 % 0-[address] [facility] Erythrocyte distribution wid th (RBC) [Ratio]Ordered By: Rhys Fontana on 08-10-2024 Erythrocyte distribution width ratio 12.1 % 11.6-14.6 [facility] Erythrocyte distribution width standard deviation 42.0 fl 35.1-43.9 [facility] Erythrocyte distribution wid th ratioOrdered By: Rhys Fontana on 08-10-2024 Erythrocyte distribution width (RBC) [Ratio] 12.1 % 11.6-14.6 [facility] Erythrocyte distribution wid th standard deviationOrdered By: Rhys Fontana on 08-10-2024 Erythrocyte distribution width (RBC) [Ratio] 42.0 fl 35.1-43.9 [facility] Estimation of creatinine terry aranceOrdered By: Rhys Fontana on 08-10-2024 Estimation of creatinine clearance 39.96 ml/min Low 50-250 [facility] GFR/1.73 sq M.predicted giorgi g non-blacks MDRD (S/P/Bld) [Vol rate/Area]Ordered By: Rhys Fontana on 08-10-2024 Glomerular filtration rate (GFR) estimation/1.73 sq m using serum, plasma, or whole b 57 Low >60 [facility] Glomerular filtration rate ( GFR) estimation/1.73 sq m using serum, plasma, or whole bOrdered By: Rhys Fontana on 08-10-2024 GFR/1.73 sq M.predicted among non-blacks MDRD (S/P/Bld) [Vol rate/Area] 57 mL/min/{1.73_m2} Low >60 [facility] Glucose [Mass/Vol]Ordered By : Rhys Fontana on 08-10-2024 Serum glucose measurement (mass/volume) 119 mg/dL High 70-99 [facility] Hematocrit Auto (Bld) [Volum e fraction]Ordered By: Rhys Fontana on 08-10-2024 Hematocrit (Bld) [Volume fraction] 34.4 % Low 40-54 [facility] Automated blood hematocrit (percentage) 34.4 % Low 40-54 [facility] Hemoglobin measurementOrdere d By: Rhys Fontana on 08-10-2024 Hemoglobin (Bld) [Mass/Vol] 11.7 g/dL Low 13.0-16.5 [facility] Hemoglobin measurement 11.7 g/dL Low 13.0-16.5 [facility] Immature granulocytes/100 WB C Auto (Bld)Ordered By: Rhys Fontana on 08-10-2024 Immature granulocytes/100 WBC (Bld) 0.200 % 0.0-0.9 [facility] Automated immature granulocyte percentage 0.200 % 0.0-0.9 [facility] Lymphocytes Auto (Unsp spec) [#/Vol]Ordered By: Rhys Fontana on 08-10-2024 Absolute lymphocyte count 0.66 X10^3/uL Low 0.83-4.51 [facility] Lymphocytes/100 WBC Auto (Un sp spec)Ordered By: Rhys Fontana on 08-10-2024 Automated lymphocyte count as percentage of total leukocytes 8.1 % Low 19-41 [facility] MCV (RBC) [Entitic vol]Order ed By: Rhys Fontana on 08-10-2024 MCV (mean corpuscular volume) determination 94.0 fL 80-94 [facility] MCV (mean corpuscular volume ) determinationOrdered By: Rhys Fontana on 08-10-2024 MCV (RBC) [Entitic vol] 94.0 fL 80-94 [facility] MR/POSTOP.ANEon 08-10-2024 MR/POSTOP.ANE Normal [facility] MR/YSZFEOHW6zh 08-10-2024 MR/POSTOPAN2 Normal [facility] Mean corpuscular hemoglobin (MCH) determinationOrdered By: Rhys Fontana on 08-10-2024 MCH (RBC) [Entitic mass] 32.0 pg 27.0-32.0 [facility] Mean corpuscular hemoglobin (MCH) determination 32.0 pg 27.0-32.0 [facility] Mean corpuscular hemoglobin concentration (MCHC) determinationOrdered By: Rhys Fontana on 08-10-2024 Mean corpuscular hemoglobin concentration (MCHC) determination 34.0 g/dL 32-36 [facility] Mean platelet volume determi nationOrdered By: Rhys Fontana on 08-10-2024 Mean platelet volume determination 10.4 fl 6.2-12.0 [facility] Monocyte percentageOrdered B y: Rhys Fontana on 08-10-2024 Monocytes/100 WBC (Bld) 6.8 % 0-10 [facility] Monocyte percentage 6.8 % 0-10 [facility] Neutrophil percentageOrdered By: Rhys Fontana on 08-10-2024 Neutrophils/100 WBC (Bld) 79.5 % High 47-70 [facility] Neutrophil percentage 79.5 % High 47-[address] [facility] Nucleated red blood cell per centageOrdered By: Rhys Fontana on 08-10-2024 Nucleated red blood cell percentage 0 % 0-5 [facility] Platelet countOrdered By: Jasmyne Fontana on 08-10-2024 Platelets (Bld) [#/Vol] 330 10*3/uL 150-450 [facility] Platelet count 330 K/mm3 150-450 [facility] Potassium (Unsp spec) [Mass/ Vol]Ordered By: Rhys Fontana on 08-10-2024 Potassium measurement (mass/volume) 3.5 mmol/L 3.3-5.1 [facility] Potassium measurement (mass/ volume)Ordered By: Rhys Fontana on 08-10-2024 Potassium (Unsp spec) [Mass/Vol] 3.5 mmol/L 3.3-5.1 [facility] RBC Auto (Bld) [#/Vol]Ordere d By: Rhys Fontana on 08-10-2024 RBC (Bld) [#/Vol] 3.66 10*6/uL Low 4.6-6.2 [facility] Automated blood erythrocyte count 3.66 M/mm3 Low 4.6-6.2 [facility] Serum creatinine measurement (mass/volume)Ordered By: Rhys Fontana on 08-10-2024 Creatinine [Mass/Vol] 1.27 mg/dL High 0.70-1.[address] [facility] Serum glucose measurement (m ass/volume)Ordered By: Rhys Fontana on 08-10-2024 Glucose [Mass/Vol] 119 mg/dL High 70-99 [facility] Serum or plasma calcium jenna urement (mass/volume)Ordered By: Rhys Fontana on 08-10-2024 Calcium [Mass/Vol] 9.7 mg/dL 7.6-11.0 [facility] Serum or plasma urea nitroge n measurement (mass/volume)Ordered By: Rhys Fontana on 08-10-2024 Urea nitrogen [Mass/Vol] 20 mg/dL High 4-19 [facility] Sodium levelOrdered By: Ivan Fontana on 08-10-2024 Sodium [Moles/Vol] 140 mmol/L 133-145 [facility] Sodium level 140 mmol/L 133-145 [facility] Surgery Specimen Level Vinayak 08-10-2024 Surgery Specimen Level IV Normal [facility] Comment on above: Performed By: #### P SUIV ####[facility] [address] [place], [place], [id number] Urea nitrogen [Mass/Vol]Orde red By: Rhys Fontana on 08-10-2024 Serum or plasma urea nitrogen measurement (mass/volume) 20 mg/dL High 4-19 [facility] White blood cell (WBC) count Ordered By: Rhys Fontana on 08-10-2024 WBC (Bld) [#/Vol] 8.2 10*3/uL 4.4-11.0 [facility] White blood cell (WBC) count 8.2 K/mm3 4.4-11.0 [facility] Absolute neutrophil countOrd ered By: Viral Gutiérrez on 08-09-2024 Absolute neutrophil count 5.9 X10^3/uL 2.0-7.7 [facility] Activated partial thrombopla stin time (aPTT) in platelet poor plasma by coagulation aOrdered By: Viral Gutiérrez on 08-09-2024 aPTT Coag (PPP) [Time] 26.6 s 24.1-36.2 [facility] Anion gap [Moles/Vol]Ordered By: Viral Gutiérrez on 08-09-2024 Anion gap in Serum or Plasma 12 5-15 [facility] BUN/creatinine ratioOrdered By: Viral Gutiérrez on 08-09-2024 BUN/creatinine ratio 16.9 RATIO 10-20 [facility] Basic Metabolic Profile (BMP )on 08-09-2024 BUN/CRE 16.9 RATIO Normal - [facility] Comment on above: Performed By: #### L 500.2500, L100.0100, L300.4310, BTS, L300.3900 ####[facility] [address] [place], [address] Calcium [Mass/Vol] 9.8 mg/dL Normal 7.6-11.0 [facility] Comment on above: Performed By: #### L 500.2500, L100.0100, L300.4310, BTS, L300.3900 ####[facility] [address] [place], [address] Chloride [Moles/Vol] 103 mmol/L Normal 98-108 [facility] Comment on above: Performed By: #### L 500.2500, L100.0100, L300.4310, BTS, L300.3900 ####[facility] [address] [place], [address] CO2 [Moles/Vol] 21.6 mmol/L Normal 21.0-32.0 [facility] Comment on above: Performed By: #### L 500.2500, L100.0100, L300.4310, BTS, L300.3900 ####[facility] [address] [place], [address] Creatinine [Mass/Vol] 1.44 mg/dL High 0.70-1.[address] [facility] Comment on above: Performed By: #### L 500.2500, L100.0100, L300.4310, BTS, L300.3900 ####[facility] [address] [place], [address] ECRCL 34.23 ml/min Low 50-250 [facility] Comment on above: Performed By: #### L 500.2500, L100.0100, L300.4310, BTS, L300.3900 ####[facility] [address] [place], [address] GAP 12 Normal 5-15 [facility] Comment on above: Performed By: #### L 500.2500, L100.0100, L300.4310, BTS, L300.3900 ####[facility] [address] [place], [address] GFR/1.73 sq M.predicted among non-blacks MDRD (S/P/Bld) [Vol rate/Area] 49 mL/min/{1.73_m2} Low >60 [facility] Comment on above: Result Comment: mL/m in/1.73m2 CKD-EPI Creatinine Equation (2020) Performed By: #### L 500.2500, L100.0100, L300.4310, BTS, L300.3900 ####[facility] [address] [place], [address] Glucose [Mass/Vol] 106 mg/dL High 70-99 [facility] Comment on above: Performed By: #### L 500.2500, L100.0100, L300.4310, BTS, L300.3900 ####[facility] [address] [place], [address] Potassium [Moles/Vol] 3.6 mmol/L Normal 3.3-5.[address] [facility] Comment on above: Performed By: #### L 500.2500, L100.0100, L300.4310, BTS, L300.3900 ####[facility] [address] [place], [address] Sodium [Moles/Vol] 136 mmol/L Normal 133-145 [facility] Comment on above: Performed By: #### L 500.2500, L100.0100, L300.4310, BTS, L300.3900 ####[facility] [address] [place], [address] Urea nitrogen [Mass/Vol] 24 mg/dL High 4-19 [facility] Comment on above: Performed By: #### L 500.2500, L100.0100, L300.4310, BTS, L300.3900 ####[facility] [address] [place], [address] Basophil percentageOrdered B y: Viral Gutiérrez on 08-09-2024 Basophil percentage 0.9 % 0-1 [facility] CBC W/Diff, Automatedon 04-0 9-2024 Absolute Lymph 0.90 X10 3/uL Normal 0.83-4.51 [facility] Comment on above: Performed By: #### L 500.2500, L100.0100, L300.4310, BTS, L300.3900 ####[facility] [address] [place], [address] Absolute Neut 5.9 X10 3/uL Normal 2.0-7.7 [facility] Comment on above: Performed By: #### L 500.2500, L100.0100, L300.4310, BTS, L300.3900 ####[facility] [address] [place], [address] Basophils/100 WBC (Bld) 0.9 % Normal 0-1 [facility] Comment on above: Performed By: #### L 500.2500, L100.0100, L300.4310, BTS, L300.3900 ####[facility] [address] [place], [address] Eosinophils/100 WBC (Bld) 4.8 % Normal 0-5 [facility] Comment on above: Performed By: #### L 500.2500, L100.0100, L300.4310, BTS, L300.3900 ####[facility] [address] [place], [address] Erythrocyte distribution width (RBC) [Ratio] 12.1 % Normal 11.6-14.6 [facility] Comment on above: Performed By: #### L 500.2500, L100.0100, L300.4310, BTS, L300.3900 ####[facility] [address] [place], [address] Hematocrit (Bld) [Volume fraction] 37.9 % Low 40-54 [facility] Comment on above: Performed By: #### L 500.2500, L100.0100, L300.4310, BTS, L300.3900 ####[facility] [address] [place], [address] Hemoglobin (Bld) [Mass/Vol] 12.9 g/dL Low 13.0-16.5 [facility] Comment on above: Performed By: #### L 500.2500, L100.0100, L300.4310, BTS, L300.3900 ####[facility] [address] [place], [address] IG% 0.400 Normal 0.0-0.9 [facility] Comment on above: Result Comment: IG% - Immature Granulocytes (promyelocytes, myelocytes andmetamyelocytes) > 1% indicates that a LEFT SHIFT is Present. Performed By: #### L 500.2500, L100.0100, L300.4310, BTS, L300.3900 ####[facility] [address] [place], [address] Lymphocytes/100 WBC (Bld) 11.4 % Low 19-41 [facility] Comment on above: Performed By: #### L 500.2500, L100.0100, L300.4310, BTS, L300.3900 ####[facility] [address] [place], [address] MCH (RBC) [Entitic mass] 32.2 pg High 27.0-32.0 [facility] Comment on above: Performed By: #### L 500.2500, L100.0100, L300.4310, BTS, L300.3900 ####[facility] [address] [place], [address] MCHC (RBC) [Mass/Vol] 34.0 g/dL Normal 32-[address] [facility] Comment on above: Performed By: #### L 500.2500, L100.0100, L300.4310, BTS, L300.3900 ####[facility] [address] [place], [address] MCV (RBC) [Entitic vol] 94.5 fL High 80-94 [facility] Comment on above: Performed By: #### L 500.2500, L100.0100, L300.4310, BTS, L300.3900 ####[facility] [address] [place], [address] Monocytes/100 WBC (Bld) 7.6 % Normal 0-10 [facility] Comment on above: Performed By: #### L 500.2500, L100.0100, L300.4310, BTS, L300.3900 ####[facility] [address] [place], [address] Neutrophils/100 WBC (Bld) 74.9 % High 47-70 [facility] Comment on above: Performed By: #### L 500.2500, L100.0100, L300.4310, BTS, L300.3900 ####[facility] [address] [place], [address] Nucleated RBC (Bld) [#/Vol] 0 10*3/uL Normal 0-5 [facility] Comment on above: Performed By: #### L 500.2500, L100.0100, L300.4310, BTS, L300.3900 ####[facility] [address] [place], [address] Platelet mean volume (Bld) [Entitic vol] 10.1 fL Normal 6.2-12.0 [facility] Comment on above: Performed By: #### L 500.2500, L100.0100, L300.4310, BTS, L300.3900 ####[facility] [address] [place], [address] Platelets (Bld) [#/Vol] 340 10*3/uL Normal 150-450 [facility] Comment on above: Performed By: #### L 500.2500, L100.0100, L300.4310, BTS, L300.3900 ####[facility] [address] [place], [address] RBC (Bld) [#/Vol] 4.01 10*6/uL Low 4.6-6.2 [facility] Comment on above: Performed By: #### L 500.2500, L100.0100, L300.4310, BTS, L300.3900 ####[facility] [address] [place], [address] RDW SD 42.2 fl Normal 35.1-43.9 [facility] Comment on above: Performed By: #### L 500.2500, L100.0100, L300.4310, BTS, L300.3900 ####[facility] [address] [place], [address] WBC (Bld) [#/Vol] 7.9 10*3/uL Normal 4.4-11.0 [facility] Comment on above: Performed By: #### L 500.2500, L100.0100, L300.4310, BTS, L300.3900 ####[facility] [address] [place], [address] Calcium [Mass/Vol]Ordered By : Viral Gutiérrez on 08-09-2024 Serum or plasma calcium measurement (mass/volume) 9.8 mg/dL 7.6-11.0 [facility] Carbon dioxide, total [Moles /volume] in Central venous bloodOrdered By: Viral Gutiérrez on 08-09-2024 Carbon dioxide, total [Moles/volume] in Central venous blood 21.6 mmol/L 21.0-32.0 [facility] Chloride assayOrdered By: Arun Gutiérrez on 08-09-2024 Chloride assay 103 mmol/L 98-108 [facility] Creatinine [Mass/Vol]Ordered By: Viral Gutiérrez on 08-09-2024 Serum creatinine measurement (mass/volume) 1.44 mg/dL High 0.70-1.20 [facility] Emergency Department Summary on 08-09-2024 Emergency Department Summary Normal [facility] Eosinophil percentageOrdered By: Viral Gutiérrez on 08-09-2024 Eosinophil percentage 4.8 % 0-[address] [facility] Erythrocyte distribution wid th (RBC) [Ratio]Ordered By: Viral Gutiérrez on 08-09-2024 Erythrocyte distribution width ratio 12.1 % 11.6-14.6 [facility] Erythrocyte distribution width standard deviation 42.2 fl 35.1-43.9 [facility] Estimation of creatinine terry aranceOrdered By: Viral Gutiérrez on 08-09-2024 Estimation of creatinine clearance 34.23 ml/min Low 50-250 [facility] GFR/1.73 sq M.predicted giorgi g non-blacks MDRD (S/P/Bld) [Vol rate/Area]Ordered By: Viral Gutiérrez on 08-09-2024 Glomerular filtration rate (GFR) estimation/1.73 sq m using serum, plasma, or whole b 49 Low >60 [facility] Glucose [Mass/Vol]Ordered By : Viral Gutiérrez on 08-09-2024 Serum glucose measurement (mass/volume) 106 mg/dL High 70-99 [facility] H AND P Exam - Hospitaliston 08-09-2024 H&P Exam - Hospitalist Normal [facility] Hematocrit Auto (Bld) [Volum e fraction]Ordered By: Viral Gutiérrez on 08-09-2024 Automated blood hematocrit (percentage) 37.9 % Low 40-54 [facility] Hemoglobin measurementOrdere d By: Viral Gutiérrez on 08-09-2024 Hemoglobin measurement 12.9 g/dL Low 13.0-16.5 [facility] Immature granulocytes/100 WB C Auto (Bld)Ordered By: Viral Gutiérrez on 08-09-2024 Automated immature granulocyte percentage 0.400 % 0.0-0.9 [facility] International normalized rat io (INR) calculationOrdered By: Viral Gutiérrez on 08-09-2024 International normalized ratio (INR) calculation 1.1 [facility] Lymphocytes Auto (Unsp spec) [#/Vol]Ordered By: Viral Gutiérrez on 08-09-2024 Absolute lymphocyte count 0.90 X10^3/uL 0.83-4.51 [facility] Lymphocytes/100 WBC Auto (Un sp spec)Ordered By: Viral Gutiérrez on 08-09-2024 Automated lymphocyte count as percentage of total leukocytes 11.4 % Low 19-41 [facility] MCV (RBC) [Entitic vol]Order ed By: Viral Gutiérrez on 08-09-2024 MCV (mean corpuscular volume) determination 94.5 fL High 80-94 [facility] MR/CON.PCM.GIon 08-09-2024 MR/CON.PCM.GI Normal [facility] Mean corpuscular hemoglobin (MCH) determinationOrdered By: Viral Gutiérrez on 08-09-2024 Mean corpuscular hemoglobin (MCH) determination 32.2 pg High 27.0-32.0 [facility] Mean corpuscular hemoglobin concentration (MCHC) determinationOrdered By: Viral Gutiérrez on 08-09-2024 Mean corpuscular hemoglobin concentration (MCHC) determination 34.0 g/dL 32-36 [facility] Mean platelet volume determi nationOrdered By: Viral Gutiérrez on 08-09-2024 Mean platelet volume determination 10.1 fl 6.2-12.0 [facility] Monocyte percentageOrdered B y: Viral Gutiérrez on 08-09-2024 Monocyte percentage 7.6 % 0-10 [facility] Neutrophil percentageOrdered By: Viral Gutiérrez on 08-09-2024 Neutrophil percentage 74.9 % High 47-[address] [facility] Nucleated red blood cell per centageOrdered By: Viral Gutiérrez on 08-09-2024 Nucleated red blood cell percentage 0 % 0-5 [facility] Partial Thromboplast Timeon 08-09-2024 aPTT Coag (Bld) [Time] 26.6 s Normal 24.1-36.2 [facility] Comment on above: Performed By: #### L 500.2500, L100.0100, L300.4310, BTS, L300.3900 ####[facility] [address] [place], [place], [id number] Platelet countOrdered By: Arun Gutiérrez on 08-09-2024 Platelet count 340 K/mm3 150-450 [facility] Potassium (Unsp spec) [Mass/ Vol]Ordered By: Viral Gutiérrez on 08-09-2024 Potassium measurement (mass/volume) 3.6 mmol/L 3.3-5.1 [facility] Prothrombin Time w/INRon INR Coag (PPP) [Relative time] 1.1 {INR} Normal [facility] Comment on above: Performed By: #### L 500.2500, L100.0100, L300.4310, BTS, L300.3900 ####[facility] [address] [place], [address] Prothrombin timeOrdered By: Viral Gutiérrez on 08-09-2024 PT Coag (PPP) [Time] 14.0 s Normal 11.7-14.9 [facility] Comment on above: Performed By: #### L 500.2500, L100.0100, L300.4310, BTS, L300.3900 ####[facility] [address] [place], [address] Prothrombin time 14.0 SECONDS 11.7-14.9 [facility] RBC Auto (Bld) [#/Vol]Ordere d By: Viral Gutiérrez on 08-09-2024 Automated blood erythrocyte count 4.01 M/mm3 Low 4.6-6.2 [facility] Sodium levelOrdered By: Viral Gutiérrez on 08-09-2024 Sodium level 136 mmol/L 133-145 [facility] Type AND Screenon 08-09-2024 ABO and Rh group Nom (d) Blood group O Rh(D) positive Normal [facility] Comment on above: Order Comment: HGI Performed By: #### L 500.2500, L100.0100, L300.4310, BTS, L300.3900 ####[facility] [address] [place], [address] Urea nitrogen [Mass/Vol]Orde red By: Viral Gutiérrez on 08-09-2024 Serum or plasma urea nitrogen measurement (mass/volume) 24 mg/dL High 4-19 [facility] White blood cell (WBC) count Ordered By: Viral Gutiérrez on 08-09-2024 White blood cell (WBC) count 7.9 K/mm3 4.4-11.0 [facility] aPTT Coag (PPP) [Time]Ordere d By: Viral Gutiérrez on 08-09-2024 Activated partial thromboplastin time (aPTT) in platelet poor plasma by coagulation a 26.6 Seconds 24.1-36.2 [facility] ALP [Catalytic activity/Vol] Ordered By: Javierbulun Beam on 08-03-2024 Serum or plasma alkaline phosphatase measurement 65 U/L 40-129 [facility] ALT [Catalytic activity/Vol] Ordered By: Zebulun Beam on 08-03-2024 Serum or plasma alanine aminotransferase (ALT) measurement 21 U/L <47 [facility] Albumin [Mass/Vol]Ordered By : Zebulun Beam on 08-03-2024 Serum or plasma albumin measurement (mass/volume) 4.1 g/dL 3.4-4.8 [facility] Albumin/Globulin [Mass ratio ]Ordered By: bulun Beam on 08-03-2024 Serum or plasma albumin/globulin mass ratio 2.1 RATIO 0.9-2.4 [facility] Anion gap [Moles/Vol]Ordered By: Zebulun Beam on 08-03-2024 Anion gap in Serum or Plasma 11 5- [facility] Anion gap in Serum or Plasma Ordered By: Zebulun Beam on 08-03-2024 Anion gap [Moles/Vol] 11 mmol/L 5- [facility] BUN/creatinine ratioOrdered By: Zebulun Beam on 08-03-2024 Urea nitrogen/Creatinine [Mass ratio] 11.4 mg/mg 10- [facility] BUN/creatinine ratio 11.4 RATIO 02-19 [facility] Bilirubin, totalOrdered By: Zebulun Beam on 08-03-2024 Bilirubin [Mass/Vol] 0.52 mg/dL 0.00-1.30 [facility] Bilirubin, total 0.52 mg/dL 0.00-1.30 [facility] Calcium [Mass/Vol]Ordered By : Addy Luciano on 08-03-2024 Serum or plasma calcium measurement (mass/volume) 9.8 mg/dL 7.6-11.0 [facility] Carbon dioxide, total [Moles /volume] in Central venous bloodOrdered By: Addy Luciano on 08-03-2024 CO2 [Moles/Vol] 24.5 mmol/L 21.0-32.0 [facility] Carbon dioxide, total [Moles/volume] in Central venous blood 24.5 mmol/L 21.0-32.0 [facility] Chloride assayOrdered By: Javier Luciano on 08-03-2024 Chloride [Moles/Vol] 106 mmol/L 98-108 [facility] Chloride assay 106 mmol/L 98-108 [facility] Comprehensive Metabolic Prof ilon 08-03-2024 Albumin [Mass/Vol] 4.1 g/dL Normal 3.4-4.8 [facility] Comment on above: Performed By: #### L 500.4050 ####[facility] [address] [place], [address] Albumin/Globulin [Mass ratio] 2.1 {ratio} Normal 0.9-2.4 [facility] Comment on above: Performed By: #### L 500.4050 ####[facility] [address] [place], [address] ALK PHOS 65 U/L Normal 40-129 [facility] Comment on above: Performed By: #### L 500.4050 ####[facility] [address] [place], [address] ALT [Catalytic activity/Vol] 21 U/L Normal <=46 [facility] Comment on above: Performed By: #### L 500.4050 ####[facility] [address] [place], [address] AST [Catalytic activity/Vol] 24 U/L Normal <=37 [facility] Comment on above: Performed By: #### L 500.4050 ####[facility] [address] [place], [address] Bilirubin [Mass/Vol] 0.52 mg/dL Normal 0.00-1.30 [facility] Comment on above: Performed By: #### L 500.4050 ####[facility] [address] [place], [address] BUN/CRE 11.4 RATIO Normal 10-20 [facility] Comment on above: Performed By: #### L 500.4050 ####[facility] [address] [place], [address] Calcium [Mass/Vol] 9.8 mg/dL Normal 7.6-11.0 [facility] Comment on above: Performed By: #### L 500.4050 ####[facility] [address] [place], [address] Chloride [Moles/Vol] 106 mmol/L Normal 98-108 [facility] Comment on above: Performed By: #### L 500.4050 ####[facility] [address] [place], [address] CO2 [Moles/Vol] 24.5 mmol/L Normal 21.0-32.0 [facility] Comment on above: Performed By: #### L 500.4050 ####[facility] [address] [place], [address] Creatinine [Mass/Vol] 1.31 mg/dL High 0.70-1.[address] [facility] Comment on above: Performed By: #### L 500.4050 ####[facility] [address] [place], [address] GAP 11 Normal 5-15 [facility] Comment on above: Performed By: #### L 500.4050 ####[facility] [address] [place], [address] GFR/1.73 sq M.predicted among non-blacks MDRD (S/P/Bld) [Vol rate/Area] 55 mL/min/{1.73_m2} Low >60 [facility] Comment on above: Result Comment: mL/m in/1.73m2 CKD-EPI Creatinine Equation (2020) Performed By: #### L 500.4050 ####[facility] [address] [place], [address] Globulin (S) [Mass/Vol] 1.9 g/dL Low 2.2-4.2 [facility] Comment on above: Performed By: #### L 500.4050 ####[facility] [address] [place], [address] Glucose [Mass/Vol] 103 mg/dL High 70-99 [facility] Comment on above: Performed By: #### L 500.4050 ####[facility] [address] [place], [address] Potassium [Moles/Vol] 4.1 mmol/L Normal 3.3-5.[address] [facility] Comment on above: Performed By: #### L 500.4050 ####[facility] [address] [place], [address] Sodium [Moles/Vol] 141 mmol/L Normal 133-145 [facility] Comment on above: Performed By: #### L 500.4050 ####[facility] [address] [place], [address] T PROT 6.0 g/dL Normal 5.9-8.4 [facility] Comment on above: Performed By: #### L 500.4050 ####[facility] [address] [place], [address] Urea nitrogen [Mass/Vol] 15 mg/dL Normal 4-19 [facility] Comment on above: Performed By: #### L 500.4050 ####[facility] [address] [place], [address] Creatinine [Mass/Vol]Ordered By: Addy Luciano on 08-03-2024 Serum creatinine measurement (mass/volume) 1.31 mg/dL High 0.70-1.20 [facility] GFR/1.73 sq M.predicted giorgi g non-blacks MDRD (S/P/Bld) [Vol rate/Area]Ordered By: Addy Luciano on 08-03-2024 Glomerular filtration rate (GFR) estimation/1.73 sq m using serum, plasma, or whole b 55 Low >60 [facility] Glomerular filtration rate ( GFR) estimation/1.73 sq m using serum, plasma, or whole bOrdered By: Addy Luciano on 08-03-2024 GFR/1.73 sq M.predicted among non-blacks MDRD (S/P/Bld) [Vol rate/Area] 55 mL/min/{1.73_m2} Low >60 [facility] Glucose [Mass/Vol]Ordered By : Addy Luciano on 08-03-2024 Serum glucose measurement (mass/volume) 103 mg/dL High 70-99 [facility] No Panel InformationOrdered By: Addy Luciano on 08-03-2024 24 U/L <38 [facility] Potassium (Unsp spec) [Mass/ Vol]Ordered By: bethanyvan Luciano on 08-03-2024 Potassium measurement (mass/volume) 4.1 mmol/L 3.3-5.1 [facility] Potassium measurement (mass/ volume)Ordered By: Marcelavan Luciano on 08-03-2024 Potassium (Unsp spec) [Mass/Vol] 4.1 mmol/L 3.3-5.1 [facility] Serum creatinine measurement (mass/volume)Ordered By: Addy Luciano on 08-03-2024 Creatinine [Mass/Vol] 1.31 mg/dL High 0.70-1.[address] [facility] Serum globulin measurementOr dered By: Addy Luciano on 08-03-2024 Globulin (S) [Mass/Vol] 1.9 g/dL Low 2.2-4.2 [facility] Serum globulin measurement 1.9 g/dL Low 2.2-4.2 [facility] Serum glucose measurement (m ass/volume)Ordered By: Addy Luciano on 08-03-2024 Glucose [Mass/Vol] 103 mg/dL High 70-99 [facility] Serum or plasma alanine ugalde otransferase (ALT) measurementOrdered By: Addy Beam on 08-03-2024 ALT [Catalytic activity/Vol] 21 U/L <47 [facility] Serum or plasma albumin jenna urement (mass/volume)Ordered By: Addy Beam on 08-03-2024 Albumin [Mass/Vol] 4.1 g/dL 3.4-4.8 [facility] Serum or plasma albumin/glob ulin mass ratioOrdered By: Addy Beam on 08-03-2024 Albumin/Globulin [Mass ratio] 2.1 {ratio} 0.9-2.4 [facility] Serum or plasma alkaline melida sphatase measurementOrdered By: Addy Luciano on 08-03-2024 ALP [Catalytic activity/Vol] 65 U/L 40-129 [facility] Serum or plasma calcium jenna urement (mass/volume)Ordered By: Addy Luciano on 08-03-2024 Calcium [Mass/Vol] 9.8 mg/dL 7.6-11.0 [facility] Serum or plasma urea nitroge n measurement (mass/volume)Ordered By: Addy Beam on 08-03-2024 Urea nitrogen [Mass/Vol] 15 mg/dL 4-19 [facility] Sodium levelOrdered By: Marcela Luciano on 08-03-2024 Sodium [Moles/Vol] 141 mmol/L 133-145 [facility] Sodium level 141 mmol/L 133-145 [facility] Total proteinOrdered By: Dharmesh Luciano on 08-03-2024 Protein [Mass/Vol] 6.0 g/dL 5.9-8.4 [facility] Total protein 6.0 g/dL 5.9-8.4 [facility] Urea nitrogen [Mass/Vol]Orde red By: Addy Luciano on 08-03-2024 Serum or plasma urea nitrogen measurement (mass/volume) 15 mg/dL 4-19 [facility] Absolute lymphocyte countOrd ered By: Nanette Macdonald on 08-02-2024 Lymphocytes Auto (Unsp spec) [#/Vol] 0.92 10*3/uL 0.83-4.51 [facility] Absolute neutrophil countOrd ered By: Nanette Macdonald on 08-02-2024 Absolute neutrophil count 4.7 X10^3/uL 2.0-7.7 [facility] Automated blood erythrocyte countOrdered By: Nanette Macdonald on 08-02-2024 RBC (Bld) [#/Vol] 3.96 10*6/uL Low 4.6-6.2 [facility] Comment on above: Performed By: #### L 100.0100 ####[facility] [address] [place], [place], [id number] Automated blood hematocrit ( percentage)Ordered By: Nanette Macdonald on 08-02-2024 Hematocrit (Bld) [Volume fraction] 37.9 % Low 40-54 [facility] Comment on above: Performed By: #### L 100.0100 ####[facility] [address] [place], [place], [id number] Automated lymphocyte count a s percentage of total leukocytesOrdered By: Nanette Macdonald on 08-02-2024 Lymphocytes/100 WBC Auto (Unsp spec) 13.5 % Low 19-41 [facility] Basophil percentageOrdered B y: Nanette Macdonald on 08-02-2024 Basophils/100 WBC (Bld) 1.0 % Normal 0-1 [facility] Comment on above: Performed By: #### L 100.0100 ####[facility] [address] [place], [place], [id number] Basophil percentage 1.0 % 0-1 [facility] CBC W/Diff, Automatedon Absolute Lymph 0.92 X10 3/uL Normal 0.83-4.51 [facility] Comment on above: Performed By: #### L 100.0100 ####[facility] [address] [place], [address] Absolute Neut 4.7 X10 3/uL Normal 2.0-7.7 [facility] Comment on above: Performed By: #### L 100.0100 ####[facility] [address] [place], [address] IG% 0.100 Normal 0.0-0.9 [facility] Comment on above: Result Comment: IG% - Immature Granulocytes (promyelocytes, myelocytes andmetamyelocytes) > 1% indicates that a LEFT SHIFT is Present. Performed By: #### L 100.0100 ####[facility] [address] [place], [address] Lymphocytes/100 WBC (Bld) 13.5 % Low 19-41 [facility] Comment on above: Performed By: #### L 100.0100 ####[facility] [address] [place], [address] MCHC (RBC) [Mass/Vol] 33.5 g/dL Normal 32-[address] [facility] Comment on above: Performed By: #### L 100.0100 ####[facility] [address] [place], [address] Nucleated RBC (Bld) [#/Vol] 0 10*3/uL Normal 0-5 [facility] Comment on above: Performed By: #### L 100.0100 ####[facility] [address] [place], [address] Platelet mean volume (Bld) [Entitic vol] 10.3 fL Normal 6.2-12.0 [facility] Comment on above: Performed By: #### L 100.0100 ####[facility] [address] [place], [address] RDW SD 43.5 fl Normal 35.1-43.9 [facility] Comment on above: Performed By: #### L 100.0100 ####[facility] [address] [place], [address] Eosinophil percentageOrdered By: Nanette Macdonald on 08-02-2024 Eosinophils/100 WBC (Bld) 9.4 % High 0-5 [facility] Comment on above: Performed By: #### L 100.0100 ####[facility] [address] [place], [address] Eosinophil percentage 9.4 % High 0-[address] [facility] Erythrocyte distribution wid th (RBC) [Ratio]Ordered By: Nanette Macdonald on 08-02-2024 Erythrocyte distribution width ratio 12.5 % 11.6-14.6 [facility] Erythrocyte distribution width standard deviation 43.5 fl 35.1-43.9 [facility] Erythrocyte distribution wid th ratioOrdered By: Nanette Macdonald on 08-02-2024 Erythrocyte distribution width (RBC) [Ratio] 12.5 % Normal 11.6-14.6 [facility] Comment on above: Performed By: #### L 100.0100 ####[facility] [address] [place], [place], [phone] Erythrocyte distribution wid th standard deviationOrdered By: Nanette Macdonald on 08-02-2024 Erythrocyte distribution width (RBC) [Ratio] 43.5 fl 35.1-43.9 [facility] Gastroenterology Visit Repor ton 08-02-2024 Gastroenterology Visit Report Normal [facility] Hematocrit Auto (Bld) [Volum e fraction]Ordered By: Nanette Macdonald on 08-02-2024 Automated blood hematocrit (percentage) 37.9 % Low 40-54 [facility] Hemoglobin measurementOrdere d By: Nanette Macdonald on 08-02-2024 Hemoglobin (Bld) [Mass/Vol] 12.7 g/dL Low 13.0-16.5 [facility] Comment on above: Performed By: #### L 100.0100 ####[facility] [address] [place], [place], [phone] Hemoglobin measurement 12.7 g/dL Low 13.0-16.5 [facility] Immature granulocytes/100 WB C Auto (Bld)Ordered By: Nanette Macdonald on 08-02-2024 Immature granulocytes/100 WBC (Bld) 0.100 % 0.0-0.9 [facility] Automated immature granulocyte percentage 0.100 % 0.0-0.9 [facility] Lymphocytes Auto (Unsp spec) [#/Vol]Ordered By: Nanette Macdonald on 08-02-2024 Absolute lymphocyte count 0.92 X10^3/uL 0.83-4.51 [facility] Lymphocytes/100 WBC Auto (Un sp spec)Ordered By: Nanette Macdonald on 08-02-2024 Automated lymphocyte count as percentage of total leukocytes 13.5 % Low 19-41 [facility] MCV (RBC) [Entitic vol]Order ed By: Nanette Macdonald on 08-02-2024 MCV (mean corpuscular volume) determination 95.7 fL High 80-94 [facility] MCV (mean corpuscular volume ) determinationOrdered By: Nanette Macdonald on 08-02-2024 MCV (RBC) [Entitic vol] 95.7 fL High 80-94 [facility] Comment on above: Performed By: #### L 100.0100 ####[facility] [address] [place], [place], [phone]([phone] Mean corpuscular hemoglobin (MCH) determinationOrdered By: Nanette Macdonald on 08-02-2024 MCH (RBC) [Entitic mass] 32.1 pg High 27.0-32.0 [facility] Comment on above: Performed By: #### L 100.0100 ####[facility] [address] [facility] [place], [address] Mean corpuscular hemoglobin (MCH) determination 32.1 pg High 27.0-32.0 [facility] Mean corpuscular hemoglobin concentration (MCHC) determinationOrdered By: Nanette Macdonald on 08-02-2024 Mean corpuscular hemoglobin concentration (MCHC) determination 33.5 g/dL 32-36 [facility] Mean platelet volume determi nationOrdered By: Nanette Macdonald on 08-02-2024 Mean platelet volume determination 10.3 fl 6.2-12.0 [facility] Monocyte percentageOrdered B y: Nanette Macdonald on 08-02-2024 Monocytes/100 WBC (Bld) 6.9 % Normal 0-10 [facility] Comment on above: Performed By: #### L 100.0100 ####[facility] [address] [place], [place], [id number] Monocyte percentage 6.9 % 0-10 [facility] Neutrophil percentageOrdered By: Nanette Macdonald on 08-02-2024 Neutrophils/100 WBC (Bld) 69.1 % Normal 47-70 [facility] Comment on above: Performed By: #### L 100.0100 ####[facility] [address] [place], [place], [phone] Neutrophil percentage 69.1 % 47-[address] [facility] Nucleated red blood cell per centageOrdered By: Nanette Macdonald on 08-02-2024 Nucleated red blood cell percentage 0 % 0-5 [facility] Platelet countOrdered By: Serjio Macdonald on 08-02-2024 Platelets (Bld) [#/Vol] 315 10*3/uL Normal 150-450 [facility] Comment on above: Performed By: #### L 100.0100 ####[facility] [address] [place], [place], [phone] Platelet count 315 K/mm3 150-450 [facility] RBC Auto (Bld) [#/Vol]Ordere d By: Nanette Macdonald on 08-02-2024 Automated blood erythrocyte count 3.96 M/mm3 Low 4.6-6.2 [facility] White blood cell (WBC) count Ordered By: Nanette Macdonald on 08-02-2024 WBC (Bld) [#/Vol] 6.8 10*3/uL Normal 4.4-11.0 [facility] Comment on above: Performed By: #### L 100.0100 ####[facility] [address] [place], [address] White blood cell (WBC) count 6.8 K/mm3 4.4-11.0 [facility] ALP [Catalytic activity/Vol] Ordered By: Tiki Saldivar on 07-28-2024 Serum or plasma alkaline phosphatase measurement 65 U/L 40-129 [facility] ALT [Catalytic activity/Vol] Ordered By: Tiki Saldivar on 07-28-2024 Serum or plasma alanine aminotransferase (ALT) measurement 15 U/L <47 [facility] Absolute lymphocyte countOrd ered By: Tiki Saldivar on 07-28-2024 Lymphocytes Auto (Unsp spec) [#/Vol] 0.98 10*3/uL 0.83-4.51 [facility] Absolute neutrophil countOrd ered By: Tiki Saldivar on 07-28-2024 Absolute neutrophil count 5.4 X10^3/uL 2.0-7.7 [facility] Albumin [Mass/Vol]Ordered By : Tiki Saldivar on 07-28-2024 Serum or plasma albumin measurement (mass/volume) 3.9 g/dL 3.4-4.8 [facility] Albumin/Globulin [Mass ratio ]Ordered By: Tiki Saldivar on 07-28-2024 Serum or plasma albumin/globulin mass ratio 2.2 RATIO 0.9-2.4 [facility] Anion gap [Moles/Vol]Ordered By: Tiki Saldivar on 07-28-2024 Anion gap in Serum or Plasma 12 5-15 [facility] Anion gap in Serum or Plasma Ordered By: Tiki Saldivar on 07-28-2024 Anion gap [Moles/Vol] 12 mmol/L 5-[address] [facility] Automated lymphocyte count a s percentage of total leukocytesOrdered By: Tiki Saldivar on 07-28-2024 Lymphocytes/100 WBC Auto (Unsp spec) 12.7 % Low 19-41 [facility] BUN/creatinine ratioOrdered By: Tiki Saldivar on 07-28-2024 Urea nitrogen/Creatinine [Mass ratio] 15.5 mg/mg 10-20 [facility] BUN/creatinine ratio 15.5 RATIO 10-20 [facility] Basophil percentageOrdered B y: Tiki Saldivar on 07-28-2024 Basophils/100 WBC (Bld) 1.2 % High 0-1 [facility] Basophil percentage 1.2 % High 0-1 [facility] Bedside Glucoseon 07-28-2024 FINGERSTICK GLU 129 mg/dL High 74-106 [facility] Comment on above: Result Comment: XU GEMENT OF PATIENT CARE PER NURSING PROTOCOL Performed By: #### L 501.080 ####[facility] [address] [place], [address] FINGERSTICK GLU 94 mg/dL Normal 74-106 [facility] Comment on above: Result Comment: XU GEMENT OF PATIENT CARE PER NURSING PROTOCOL Performed By: #### L 501.080 ####[facility] [address] [place], [address] Bilirubin, totalOrdered By: Tiki Saldivar on 07-28-2024 Bilirubin [Mass/Vol] 0.73 mg/dL 0.00-1.30 [facility] Bilirubin, total 0.73 mg/dL 0.00-1.30 [facility] CBC W/Diff, Automatedon 07-02 Absolute Lymph 0.98 X10 3/uL Normal 0.83-4.51 [facility] Comment on above: Performed By: #### L 300.3900, L501.9520, L100.0100, L500.4050, L501.5200 ####[facility] [address] [place], [address] Absolute Neut 5.4 X10 3/uL Normal 2.0-7.7 [facility] Comment on above: Performed By: #### L 300.3900, L501.9520, L100.0100, L500.4050, L501.5200 ####[facility] [address] [place], [address] Basophils/100 WBC (Bld) 1.2 % High 0-1 [facility] Comment on above: Performed By: #### L 300.3900, L501.9520, L100.0100, L500.4050, L501.5200 ####[facility] [address] [place], [address] Eosinophils/100 WBC (Bld) 6.6 % High 0-5 [facility] Comment on above: Performed By: #### L 300.3900, L501.9520, L100.0100, L500.4050, L501.5200 ####[facility] [address] [place], [address] Erythrocyte distribution width (RBC) [Ratio] 12.4 % Normal 11.6-14.6 [facility] Comment on above: Performed By: #### L 300.3900, L501.9520, L100.0100, L500.4050, L501.5200 ####[facility] [address] [place], [address] Hematocrit (Bld) [Volume fraction] 35.9 % Low 40-54 [facility] Comment on above: Performed By: #### L 300.3900, L501.9520, L100.0100, L500.4050, L501.5200 ####[facility] [address] [place], [address] Hemoglobin (Bld) [Mass/Vol] 12.6 g/dL Low 13.0-16.5 [facility] Comment on above: Performed By: #### L 300.3900, L501.9520, L100.0100, L500.4050, L501.5200 ####[facility] [address] [place], [address] IG% 0.400 Normal 0.0-0.9 [facility] Comment on above: Result Comment: IG% - Immature Granulocytes (promyelocytes, myelocytes andmetamyelocytes) > 1% indicates that a LEFT SHIFT is Present. Performed By: #### L 300.3900, L501.9520, L100.0100, L500.4050, L501.5200 ####[facility] [address] [place], [address] Lymphocytes/100 WBC (Bld) 12.7 % Low 19-41 [facility] Comment on above: Performed By: #### L 300.3900, L501.9520, L100.0100, L500.4050, L501.5200 ####[facility] [address] [place], [address] MCH (RBC) [Entitic mass] 32.6 pg High 27.0-32.0 [facility] Comment on above: Performed By: #### L 300.3900, L501.9520, L100.0100, L500.4050, L501.5200 ####[facility] [address] [place], [address] MCHC (RBC) [Mass/Vol] 35.1 g/dL Normal 32-[address] [facility] Comment on above: Performed By: #### L 300.3900, L501.9520, L100.0100, L500.4050, L501.5200 ####[facility] [address] [place], [address] MCV (RBC) [Entitic vol] 93.0 fL Normal 80-94 [facility] Comment on above: Performed By: #### L 300.3900, L501.9520, L100.0100, L500.4050, L501.5200 ####[facility] [address] [place], [address] Monocytes/100 WBC (Bld) 8.7 % Normal 0-10 [facility] Comment on above: Performed By: #### L 300.3900, L501.9520, L100.0100, L500.4050, L501.5200 ####[facility] [address] [place], [address] Neutrophils/100 WBC (Bld) 70.4 % High 47-70 [facility] Comment on above: Performed By: #### L 300.3900, L501.9520, L100.0100, L500.4050, L501.5200 ####[facility] [address] [place], [address] Nucleated RBC (Bld) [#/Vol] 0 10*3/uL Normal 0-5 [facility] Comment on above: Performed By: #### L 300.3900, L501.9520, L100.0100, L500.4050, L501.5200 ####[facility] [address] [place], [address] Platelet mean volume (Bld) [Entitic vol] 9.9 fL Normal 6.2-12.0 [facility] Comment on above: Performed By: #### L 300.3900, L501.9520, L100.0100, L500.4050, L501.5200 ####[facility] [address] [place], [address] Platelets (Bld) [#/Vol] 323 10*3/uL Normal 150-450 [facility] Comment on above: Performed By: #### L 300.3900, L501.9520, L100.0100, L500.4050, L501.5200 ####[facility] [address] [place], [address] RBC (Bld) [#/Vol] 3.86 10*6/uL Low 4.6-6.2 [facility] Comment on above: Performed By: #### L 300.3900, L501.9520, L100.0100, L500.4050, L501.5200 ####[facility] [address] [place], [address] RDW SD 42.3 fl Normal 35.1-43.9 [facility] Comment on above: Performed By: #### L 300.3900, L501.9520, L100.0100, L500.4050, L501.5200 ####[facility] [address] [place] [place], [address] WBC (Bld) [#/Vol] 7.7 10*3/uL Normal 4.4-11.0 [facility] Comment on above: Performed By: #### L 300.3900, L501.9520, L100.0100, L500.4050, L501.5200 ####[facility] [address] [place], [address] Calcium [Mass/Vol]Ordered By : Tiki Saldivar on 07-28-2024 Serum or plasma calcium measurement (mass/volume) 9.3 mg/dL 7.6-11.0 [facility] Carbon dioxide, total [Moles /volume] in Central venous bloodOrdered By: Tiki Saldivar on 07-28-2024 CO2 [Moles/Vol] 23.3 mmol/L 21.0-32.0 [facility] Carbon dioxide, total [Moles/volume] in Central venous blood 23.3 mmol/L 21.0-32.0 [facility] Chloride assayOrdered By: Flora Saldivar on 07-28-2024 Chloride [Moles/Vol] 106 mmol/L 98-108 [facility] Chloride assay 106 mmol/L 98-108 [facility] Comprehensive Metabolic Prof ilon 07-28-2024 Albumin [Mass/Vol] 3.9 g/dL Normal 3.4-4.8 [facility] Comment on above: Performed By: #### L 300.3900, L501.9520, L100.0100, L500.4050, L501.5200 ####[facility] [address] [place], [address] Albumin/Globulin [Mass ratio] 2.2 {ratio} Normal 0.9-2.4 [facility] Comment on above: Performed By: #### L 300.3900, L501.9520, L100.0100, L500.4050, L501.5200 ####[facility] [address] [place], [address] ALK PHOS 65 U/L Normal 40-129 [facility] Comment on above: Performed By: #### L 300.3900, L501.9520, L100.0100, L500.4050, L501.5200 ####[facility] [address] [place], [address] ALT [Catalytic activity/Vol] 15 U/L Normal <=46 [facility] Comment on above: Performed By: #### L 300.3900, L501.9520, L100.0100, L500.4050, L501.5200 ####[facility] [address] [place], [address] AST [Catalytic activity/Vol] 28 U/L Normal <=37 [facility] Comment on above: Performed By: #### L 300.3900, L501.9520, L100.0100, L500.4050, L501.5200 ####[facility] [address] [place], [address] Bilirubin [Mass/Vol] 0.73 mg/dL Normal 0.00-1.30 [facility] Comment on above: Performed By: #### L 300.3900, L501.9520, L100.0100, L500.4050, L501.5200 ####[facility] [address] [place], [address] BUN/CRE 15.5 RATIO Normal 10-20 [facility] Comment on above: Performed By: #### L 300.3900, L501.9520, L100.0100, L500.4050, L501.5200 ####[facility] [address] [place], [address] Calcium [Mass/Vol] 9.3 mg/dL Normal 7.6-11.0 [facility] Comment on above: Performed By: #### L 300.3900, L501.9520, L100.0100, L500.4050, L501.5200 ####[facility] [address] [place], [address] Chloride [Moles/Vol] 106 mmol/L Normal 98-108 [facility] Comment on above: Performed By: #### L 300.3900, L501.9520, L100.0100, L500.4050, L501.5200 ####[facility] [address] [place], [address] CO2 [Moles/Vol] 23.3 mmol/L Normal 21.0-32.0 [facility] Comment on above: Performed By: #### L 300.3900, L501.9520, L100.0100, L500.4050, L501.5200 ####[facility] [address] [place], [address] Creatinine [Mass/Vol] 1.19 mg/dL Normal 0.70-1.[address] [facility] Comment on above: Performed By: #### L 300.3900, L501.9520, L100.0100, L500.4050, L501.5200 ####[facility] [address] [place], [address] ECRCL 42.30 ml/min Low 50-250 [facility] Comment on above: Performed By: #### L 300.3900, L501.9520, L100.0100, L500.4050, L501.5200 ####[facility] [address] [place], [address] GAP 12 Normal 5-15 [facility] Comment on above: Performed By: #### L 300.3900, L501.9520, L100.0100, L500.4050, L501.5200 ####[facility] [address] [place], [address] GFR/1.73 sq M.predicted among non-blacks MDRD (S/P/Bld) [Vol rate/Area] 62 mL/min/{1.73_m2} Normal >60 [facility] Comment on above: Result Comment: mL/m in/1.73m2 CKD-EPI Creatinine Equation (2020) Performed By: #### L 300.3900, L501.9520, L100.0100, L500.4050, L501.5200 ####[facility] [address] [place], [address] Globulin (S) [Mass/Vol] 1.8 g/dL Low 2.2-4.2 [facility] Comment on above: Performed By: #### L 300.3900, L501.9520, L100.0100, L500.4050, L501.5200 ####[facility] [address] [place], [address] Glucose [Mass/Vol] 89 mg/dL Normal 70-99 [facility] Comment on above: Performed By: #### L 300.3900, L501.9520, L100.0100, L500.4050, L501.5200 ####[facility] [address] [place], [address] Potassium [Moles/Vol] 3.5 mmol/L Normal 3.3-5.[address] [facility] Comment on above: Performed By: #### L 300.3900, L501.9520, L100.0100, L500.4050, L501.5200 ####[facility] [address] [place], [address] Sodium [Moles/Vol] 141 mmol/L Normal 133-145 [facility] Comment on above: Performed By: #### L 300.3900, L501.9520, L100.0100, L500.4050, L501.5200 ####[facility] [address] [place], [address] T PROT 5.7 g/dL Low 5.9-8.4 [facility] Comment on above: Performed By: #### L 300.3900, L501.9520, L100.0100, L500.4050, L501.5200 ####[facility] [address] [place], [address] Urea nitrogen [Mass/Vol] 19 mg/dL Normal 4-19 [facility] Comment on above: Performed By: #### L 300.3900, L501.9520, L100.0100, L500.4050, L501.5200 ####[facility] [address] [place], [address] Creatinine [Mass/Vol]Ordered By: Tiki Saldivar on 07-28-2024 Serum creatinine measurement (mass/volume) 1.19 mg/dL 0.70-1.20 [facility] Discharge Instructionon 07-02 Discharge Instruction Normal [facility] Eosinophil percentageOrdered By: Tiki Saldivar on 07-28-2024 Eosinophils/100 WBC (Bld) 6.6 % High 0-5 [facility] Eosinophil percentage 6.6 % High 0-[address] [facility] Erythrocyte distribution wid th (RBC) [Ratio]Ordered By: Tiki Saldivar on 07-28-2024 Erythrocyte distribution width ratio 12.4 % 11.6-14.6 [facility] Erythrocyte distribution wid th ratioOrdered By: Tiki Saldivar on 07-28-2024 Erythrocyte distribution width (RBC) [Ratio] 12.4 % 11.6-14.6 [facility] Erythrocyte distribution wid th standard deviationOrdered By: Tiki Saldivar on 07-28-2024 Erythrocyte distribution width (RBC) [Ratio] 42.3 fl 35.1-43.9 [facility] Erythrocyte distribution width standard deviation 42.3 fl 35.1-43.9 [facility] Estimation of creatinine terry aranceOrdered By: Tiki Saldivar on 07-28-2024 Estimation of creatinine clearance 42.30 ml/min Low 50-250 [facility] GFR/1.73 sq M.predicted giorgi g non-blacks MDRD (S/P/Bld) [Vol rate/Area]Ordered By: Tiki Saldivar on 07-28-2024 Glomerular filtration rate (GFR) estimation/1.73 sq m using serum, plasma, or whole b 62 >60 [facility] Glomerular filtration rate ( GFR) estimation/1.73 sq m using serum, plasma, or whole bOrdered By: Tiki Saldivar on 07-28-2024 GFR/1.73 sq M.predicted among non-blacks MDRD (S/P/Bld) [Vol rate/Area] 62 mL/min/{1.73_m2} >60 [facility] Glucose [Mass/Vol]Ordered By : Tiki Saldivar on 07-28-2024 Serum glucose measurement (mass/volume) 89 mg/dL 70-99 [facility] Glucose measurement at bedsi deOrdered By: Rhys Fontana on 07-28-2024 Glucose [Mass/Vol] 129 mg/dL High 74-106 [facility] Glucose measurement at bedside 129 mg/dL High 74-106 [facility] HH, Hemoglobin AND Hematocri ton 07-28-2024 Hematocrit (Bld) [Volume fraction] 37.9 % Low 40-54 [facility] Comment on above: Performed By: #### L 100.0600 ####[facility] [address] [place], [place], [address] Hemoglobin (Bld) [Mass/Vol] 13.1 g/dL Normal 13.0-16.5 [facility] Comment on above: Performed By: #### L 100.0600 ####[facility] [address] [place], [address] Hematocrit Auto (Bld) [Volum e fraction]Ordered By: Rhys Fontana on 07-28-2024 Hematocrit (Bld) [Volume fraction] 37.9 % Low 40-54 [facility] Automated blood hematocrit (percentage) 37.9 % Low 40-54 [facility] Hemoglobin measurementOrdere d By: Rhys Fontana on 07-28-2024 Hemoglobin (Bld) [Mass/Vol] 13.1 g/dL 13.0-16.5 [facility] Hemoglobin measurement 13.1 g/dL 13.0-16.5 [facility] Immature granulocytes/100 WB C Auto (Bld)Ordered By: Tiki Saldivar on 07-28-2024 Immature granulocytes/100 WBC (Bld) 0.400 % 0.0-0.9 [facility] Automated immature granulocyte percentage 0.400 % 0.0-0.9 [facility] International normalized rat io (INR) calculationOrdered By: Tiki Saldivar on 07-28-2024 International normalized ratio (INR) calculation 1.1 [facility] Lymphocytes Auto (Unsp spec) [#/Vol]Ordered By: Tiki Saldivar on 07-28-2024 Absolute lymphocyte count 0.98 X10^3/uL 0.83-4.51 [facility] Lymphocytes/100 WBC Auto (Un sp spec)Ordered By: Tiki Saldivar on 07-28-2024 Automated lymphocyte count as percentage of total leukocytes 12.7 % Low 19-41 [facility] MCV (RBC) [Entitic vol]Order ed By: Tiki Saldivar on 07-28-2024 MCV (mean corpuscular volume) determination 93.0 fL 80-94 [facility] MCV (mean corpuscular volume ) determinationOrdered By: Tiki Saldivar on 07-28-2024 MCV (RBC) [Entitic vol] 93.0 fL 80-94 [facility] Magnesiumon 07-28-2024 Magnesium [Mass/Vol] 1.7 mg/dL Normal 1.5-2.2 [facility] Comment on above: Performed By: #### L 300.3900, L501.9520, L100.0100, L500.4050, L501.5200 ####[facility] [address] [place], [place], [address] Magnesium (Unsp spec) [Mass/ Vol]Ordered By: Tiki Saldivar on 07-28-2024 Magnesium measurement (mass/volume) 1.7 mg/dL 1.5-2.2 [facility] Magnesium measurement (mass/ volume)Ordered By: Tiki Saldivar on 07-28-2024 Magnesium (Unsp spec) [Mass/Vol] 1.7 mg/dL 1.5-2.2 [facility] Mean corpuscular hemoglobin (MCH) determinationOrdered By: Tiki Saldivar on 07-28-2024 MCH (RBC) [Entitic mass] 32.6 pg High 27.0-32.0 [facility] Mean corpuscular hemoglobin (MCH) determination 32.6 pg High 27.0-32.0 [facility] Mean corpuscular hemoglobin concentration (MCHC) determinationOrdered By: Tiki Saldivar on 07-28-2024 Mean corpuscular hemoglobin concentration (MCHC) determination 35.1 g/dL 32-36 [facility] Mean platelet volume determi nationOrdered By: Tiki Saldivar on 07-28-2024 Mean platelet volume determination 9.9 fl 6.2-12.0 [facility] Monocyte percentageOrdered B y: Tiki Saldivar on 07-28-2024 Monocytes/100 WBC (Bld) 8.7 % 0-10 [facility] Monocyte [facility] 8.7 % 0-10 [facility] Neutrophil percentageOrdered By: Tiki Saldivar on 07-28-2024 Neutrophils/100 WBC (Bld) 70.4 % High 47-70 [facility] Neutrophil percentage 70.4 % High 47-[address] [facility] No Panel InformationOrdered By: Tiki Saldivar on 07-28-2024 28 U/L <38 [facility] Nucleated red blood cell per centageOrdered By: Tiki Saldivar on 07-28-2024 Nucleated red blood cell percentage 0 % 0-5 [facility] Platelet countOrdered By: Flora Saldivar on 07-28-2024 Platelets (Bld) [#/Vol] 323 10*3/uL 150-450 [facility] Platelet count 323 K/mm3 150-450 [facility] Potassium (Unsp spec) [Mass/ Vol]Ordered By: Tiki Saldivar on 07-28-2024 Potassium measurement (mass/volume) 3.5 mmol/L 3.3-5.1 [facility] Potassium measurement (mass/ volume)Ordered By: Tiki Saldivar on 07-28-2024 Potassium (Unsp spec) [Mass/Vol] 3.5 mmol/L 3.3-5.1 [facility] Prothrombin Time w/INRon INR Coag (PPP) [Relative time] 1.1 {INR} Normal [facility] Comment on above: Performed By: #### L 300.3900, L501.9520, L100.0100, L500.4050, L501.5200 ####[facility] [address] [place], [place], [address] PT Coag (PPP) [Time] 14.2 s Normal 11.7-14.9 [facility] Comment on above: Performed By: #### L 300.3900, L501.9520, L100.0100, L500.4050, L501.5200 ####[facility] [address] [place], [place], [address] Prothrombin timeOrdered By: Tiki Saldivar on 07-28-2024 PT Coag (PPP) [Time] 14.2 s 11.7-14.9 [facility] Prothrombin time 14.2 SECONDS 11.7-14.9 [facility] RBC Auto (Bld) [#/Vol]Ordere d By: Tiki Saldivar on 07-28-2024 RBC (Bld) [#/Vol] 3.86 10*6/uL Low 4.6-6.2 [facility] Automated blood erythrocyte count 3.86 M/mm3 Low 4.6-6.2 [facility] Serum creatinine measurement (mass/volume)Ordered By: Tiki Saldivar on 07-28-2024 Creatinine [Mass/Vol] 1.19 mg/dL 0.70-1.[address] [facility] Serum globulin measurementOr dered By: Tiki Saldivar on 07-28-2024 Globulin (S) [Mass/Vol] 1.8 g/dL Low 2.2-4.2 [facility] Serum globulin measurement 1.8 g/dL Low 2.2-4.2 [facility] Serum glucose measurement (m ass/volume)Ordered By: Tiki Saldivar on 07-28-2024 Glucose [Mass/Vol] 89 mg/dL 70-99 [facility] Serum or plasma alanine ugalde otransferase (ALT) measurementOrdered By: Tiki Saldivar on 07-28-2024 ALT [Catalytic activity/Vol] 15 U/L <47 [facility] Serum or plasma albumin jenna urement (mass/volume)Ordered By: Tiki Saldivar on 07-28-2024 Albumin [Mass/Vol] 3.9 g/dL 3.4-4.8 [facility] Serum or plasma albumin/glob ulin mass ratioOrdered By: Tiki Saldivar on 07-28-2024 Albumin/Globulin [Mass ratio] 2.2 {ratio} 0.9-2.4 [facility] Serum or plasma alkaline melida sphatase measurementOrdered By: Tiki Saldivar on 07-28-2024 ALP [Catalytic activity/Vol] 65 U/L 40-129 [facility] Serum or plasma calcium jenna urement (mass/volume)Ordered By: Tiki Saldivar on 07-28-2024 Calcium [Mass/Vol] 9.3 mg/dL 7.6-11.0 [facility] Serum or plasma urea nitroge n measurement (mass/volume)Ordered By: Tiki Saldivar on 07-28-2024 Urea nitrogen [Mass/Vol] 19 mg/dL 4-19 [facility] Sodium levelOrdered By: Kirsten Saldivar on 07-28-2024 Sodium [Moles/Vol] 141 mmol/L 133-145 [facility] Sodium level 141 mmol/L 133-145 [facility] TSH DL <= 0.005 mIU/L QnOrde red By: Tiki Saldivar on 07-28-2024 TSH Qn 2.440 uIU/mL 0.300-4.200 [facility] Serum or plasma thyroid stimulating hormone (TSH) measurement by high sensitivity met 2.440 uIU/mL 0.300-4.200 [facility] Thyroid Stim Hormone (TSH)on 07-28-2024 TSH 2.440 uIU/mL Normal 0.300-4.200 [facility] Comment on above: Performed By: #### L 300.3900, L501.9527, L100.0100, L500.0908, L501.520 ####[facility] [address] [place], [address] Total proteinOrdered By: Tho Saldivar on 07-28-2024 Protein [Mass/Vol] 5.7 g/dL Low 5.9-8.4 [facility] Total protein 5.7 g/dL Low 5.9-8.4 [facility] Urea nitrogen [Mass/Vol]Orde red By: Tiki Saldivar on 07-28-2024 Serum or plasma urea nitrogen measurement (mass/volume) 19 mg/dL 4-19 [facility] White blood cell (WBC) count Ordered By: Tiki Saldivar on 07-28-2024 WBC (Bld) [#/Vol] 7.7 10*3/uL 4.4-11.0 [facility] White blood cell (WBC) count 7.7 K/mm3 4.4-11.0 [facility] ALP [Catalytic activity/Vol] Ordered By: Devon Reagan on 07-27-2024 Serum or plasma alkaline phosphatase measurement 74 U/L 40-129 [facility] ALT [Catalytic activity/Vol] Ordered By: Devon Reagan on 07-27-2024 Serum or plasma alanine aminotransferase (ALT) measurement 15 U/L <47 [facility] Abdomen/Pelvis W IV Cont ONL Yon 07-27-2024 Abdomen/Pelvis W IV Cont ONLY Normal [facility] Absolute neutrophil countOrd ered By: Devon Reagan on 07-27-2024 Absolute neutrophil count 5.6 X10^3/uL 2.0-7.7 [facility] Albumin [Mass/Vol]Ordered By : Devon Reagan on 07-27-2024 Serum or plasma albumin measurement (mass/volume) 4.3 g/dL 3.4-4.8 [facility] Albumin/Globulin [Mass ratio ]Ordered By: Devon Reagan on 07-27-2024 Serum or plasma albumin/globulin mass ratio 1.9 RATIO 0.9-2.4 [facility] Alcohol, Blood (Medical)-Ser umon 07-27-2024 SERUM ETOH 127.0 mg/dL High <=10.0 [facility] Comment on above: Result Comment: This test is for medical purposes only. The legaldefinition of intoxication varies according to local law. Performed By: #### L 501.9100 ####[facility] [address] [place], [place], [phone] Anion gap [Moles/Vol]Ordered By: Devon Reagan on 07-27-2024 Anion gap in Serum or Plasma 17 High 5-15 [facility] Arterial patency Wrist arter y --pre arterial punctureOrdered By: Tiki Saldivar on 07-27-2024 Assessment of wrist artery patency prior to arterial puncture Positive [facility] Assessment of wrist artery p atency prior to arterial punctureOrdered By: Tiki Saldivar on 07-27-2024 Arterial patency Wrist artery --pre arterial puncture Positive [facility] BUN/creatinine ratioOrdered By: Devon Reagan on 07-27-2024 BUN/creatinine ratio 21.7 RATIO High 10-20 [facility] Base excess Calc (BldV) [Mol es/Vol]Ordered By: Tiki Saldivar on 07-27-2024 Blood base excess determination -2 mmol/L -2-2 [facility] Venous blood base excess measurement -2 mmol/L Low -1.0-3.5 [facility] Basic Metabolic Profile (BMP )on 07-27-2024 BUN/CRE 2.2 RATIO Low 10-20 [facility] Comment on above: Performed By: #### L 500.2500 ####[facility] [address] [place], [place], [phone] Calcium [Mass/Vol] 8.5 mg/dL Normal 7.6-11.0 [facility] Comment on above: Performed By: #### L 500.2500 ####[facility] [address] [place] [place], [address] Chloride [Moles/Vol] 107 mmol/L Normal 98-108 [facility] Comment on above: Performed By: #### L 500.2500 ####[facility] [address] [place], [address] CO2 [Moles/Vol] 17.7 mmol/L Low 21.0-32.0 [facility] Comment on above: Performed By: #### L 500.2500 ####[facility] [address] [place], [address] Creatinine [Mass/Vol] 1.31 mg/dL High 0.70-1.[address] [facility] Comment on above: Performed By: #### L 500.2500 ####[facility] [address] [place], [address] ECRCL 38.36 ml/min Low 50-250 [facility] Comment on above: Performed By: #### L 500.2500 ####[facility] [address] [place], [address] GAP 18 High 5-15 [facility] Comment on above: Performed By: #### L 500.2500 ####[facility] [address] [place], [address] GFR/1.73 sq M.predicted among non-blacks MDRD (S/P/Bld) [Vol rate/Area] 55 mL/min/{1.73_m2} Low >60 [facility] Comment on above: Result Comment: mL/m in/1.73m2 CKD-EPI Creatinine Equation (2020) Performed By: #### L 500.2500 ####[facility] [address] [place], [address] Glucose [Mass/Vol] 54 mg/dL Low 70-99 [facility] Comment on above: Performed By: #### L 500.2500 ####[facility] [address] [place], [address] Potassium [Moles/Vol] 3.8 mmol/L Normal 3.3-5.[address] [facility] Comment on above: Performed By: #### L 500.2500 ####[facility] [address] [place], [place], [phone] Sodium [Moles/Vol] 143 mmol/L Normal 133-145 [facility] Comment on above: Performed By: #### L 500.2500 ####[facility] [address] [place], [place], [phone] Urea nitrogen [Mass/Vol] 3 mg/dL Low 4-19 [facility] Comment on above: Performed By: #### L 500.2500 ####[facility] [address] [place], [place], [phone] Basophil percentageOrdered B y: Devon Reagan on 07-27-2024 Basophil percentage 1.2 % High 0-1 [facility] Bedside Glucoseon 07-27-2024 FINGERSTICK GLU 139 mg/dL High 74-106 [facility] Comment on above: Result Comment: XU TRIMBLE OF PATIENT CARE PER NURSING PROTOCOL Performed By: #### L 501.080 ####[facility] [address] [place], [place], [phone] Bilirubin Test strip Ql (U)O rdered By: Devon Reagan on 07-27-2024 Bilirubin Ql (U) Negative Negative [facility] Bilirubin, totalOrdered By: Devon Reagan on 07-27-2024 Bilirubin, total 0.56 mg/dL 0.00-1.30 [facility] Blood Gases by CPSon 025 ROYER TEST Positive Normal [facility] Comment on above: Performed By: #### L 9000.0800 ####[facility] [address] [place], [place], [id number] Base excess Calc (Bld) [Moles/Vol] -2 mmol/L Normal -2 to +2 [facility] Comment on above: Performed By: #### L 9000.0800 ####[facility] [address] [place], [address] Blood Gas Type ART Normal [facility] Comment on above: Performed By: #### L 9000.0800 ####[facility] [address] [place], [address] CO2 [Moles/Vol] 23 mmol/L Normal [facility] Comment on above: Performed By: #### L 9000.0800 ####[facility] [address] [place], [address] HCO3 (Bld) [Moles/Vol] 22.4 mmol/L Normal 22-26 [facility] Comment on above: Performed By: #### L 9000.0800 ####[facility] [address] [place], [address] Mode Not entered Normal [facility] Comment on above: Performed By: #### L 9000.0800 ####[facility] [address] [place], [address] O2 Delivery Dev Room Air Normal [facility] Comment on above: Performed By: #### L 9000.0800 ####[facility] [address] [place], [address] pCO2 32.4 mmHg Low 35-45 [facility] Comment on above: Performed By: #### L 9000.0800 ####[facility] [address] [place], [address] pH (Bld) 7.45 [pH] Normal 7.35-7.45 [facility] Comment on above: Performed By: #### L 9000.0800 ####[facility] [address] [place], [address] PO2 68 mmHG Low 75-100 [facility] Comment on above: Performed By: #### L 9000.0800 ####[facility] [address] [place], [address] SITE L Radial Normal [facility] Comment on above: Performed By: #### L 9000.0800 ####[facility] [address] [place], [address] SO2 94 Low 95-99 [facility] Comment on above: Performed By: #### L 9000.0800 ####[facility] [address] [place], [address] Blood base excess determinat ionOrdered By: Tiki Saldivar on 07-27-2024 Base excess Calc (BldV) [Moles/Vol] -2 mmol/L -2-2 [facility] Blood bicarbonate measuremen tOrdered By: Tiki Saldivar on 07-27-2024 HCO3 (Bld) [Moles/Vol] 22.4 mmol/L [facility] Blood bicarbonate measurement 22.4 mmol/L [facility] CBC W/Diff, Automatedon 07-02 Absolute Lymph 1.02 X10 3/uL Normal 0.83-4.51 [facility] Comment on above: Performed By: #### L 503.6005, L501.2450, L500.4050, L100.0100 ####[facility] [address] [place], [address] Absolute Neut 5.6 X10 3/uL Normal 2.0-7.7 [facility] Comment on above: Performed By: #### L 503.6005, L501.2450, L500.4050, L100.0100 ####[facility] [address] [place], [address] Basophils/100 WBC (Bld) 1.2 % High 0-1 [facility] Comment on above: Performed By: #### L 503.6005, L501.2450, L500.4050, L100.0100 ####[facility] [address] [place], [address] Eosinophils/100 WBC (Bld) 6.0 % High 0-5 [facility] Comment on above: Performed By: #### L 503.6005, L501.2450, L500.4050, L100.0100 ####[facility] [address] [place], [address] Erythrocyte distribution width (RBC) [Ratio] 12.5 % Normal 11.6-14.6 [facility] Comment on above: Performed By: #### L 503.6005, L501.2450, L500.4050, L100.0100 ####[facility] [address] [place], [address] Hematocrit (Bld) [Volume fraction] 38.4 % Low 40-54 [facility] Comment on above: Performed By: #### L 503.6005, L501.2450, L500.4050, L100.0100 ####[facility] [address] [place], [address] Hemoglobin (Bld) [Mass/Vol] 13.5 g/dL Normal 13.0-16.5 [facility] Comment on above: Performed By: #### L 503.6005, L501.2450, L500.4050, L100.0100 ####[facility] [address] [place], [address] IG% 0.300 Normal 0.0-0.9 [facility] Comment on above: Result Comment: IG% - Immature Granulocytes (promyelocytes, myelocytes andmetamyelocytes) > 1% indicates that a LEFT SHIFT is Present. Performed By: #### L 503.6005, L501.2450, L500.4050, L100.0100 ####[facility] [address] [place], [address] Lymphocytes/100 WBC (Bld) 13.4 % Low 19-41 [facility] Comment on above: Performed By: #### L 503.6005, L501.2450, L500.4050, L100.0100 ####[facility] [address] [place], [address] MCH (RBC) [Entitic mass] 32.8 pg High 27.0-32.0 [facility] Comment on above: Performed By: #### L 503.6005, L501.2450, L500.4050, L100.0100 ####[facility] [address] [place], [address] MCHC (RBC) [Mass/Vol] 35.2 g/dL Normal 32-[address] [facility] Comment on above: Performed By: #### L 503.6005, L501.2450, L500.4050, L100.0100 ####[facility] [address] [place], [address] MCV (RBC) [Entitic vol] 93.4 fL Normal 80-94 [facility] Comment on above: Performed By: #### L 503.6005, L501.2450, L500.4050, L100.0100 ####[facility] [address] [place], [address] Monocytes/100 WBC (Bld) 5.5 % Normal 0-10 [facility] Comment on above: Performed By: #### L 503.6005, L501.2450, L500.4050, L100.0100 ####[facility] [address] [place], [address] Neutrophils/100 WBC (Bld) 73.6 % High 47-70 [facility] Comment on above: Performed By: #### L 503.6005, L501.2450, L500.4050, L100.0100 ####[facility] [address] [place], [address] Nucleated RBC (Bld) [#/Vol] 0 10*3/uL Normal 0-5 [facility] Comment on above: Performed By: #### L 503.6005, L501.2450, L500.4050, L100.0100 ####[facility] [address] [place], [address] Platelet mean volume (Bld) [Entitic vol] 9.9 fL Normal 6.2-12.0 [facility] Comment on above: Performed By: #### L 503.6005, L501.2450, L500.4050, L100.0100 ####[facility] [address] [place], [address] Platelets (Bld) [#/Vol] 380 10*3/uL Normal 150-450 [facility] Comment on above: Performed By: #### L 503.6005, L501.2450, L500.4050, L100.0100 ####[facility] [address] [place], [address] RBC (Bld) [#/Vol] 4.11 10*6/uL Low 4.6-6.2 [facility] Comment on above: Performed By: #### L 503.6005, L501.2450, L500.4050, L100.0100 ####[facility] [address] [place], [address] RDW SD 42.6 fl Normal 35.1-43.9 [facility] Comment on above: Performed By: #### L 503.6005, L501.2450, L500.4050, L100.0100 ####[facility] [address] [place], [address] WBC (Bld) [#/Vol] 7.6 10*3/uL Normal 4.4-11.0 [facility] Comment on above: Performed By: #### L 503.6005, L501.2450, L500.4050, L100.0100 ####[facility] [address] [place], [address] CO2 (BldV) [Moles/Vol]Ordere d By: Tiki Saldivar on 07-27-2024 CO2 [Moles/Vol] 23 mmol/L - [facility] Venous blood total carbon dioxide measurement 23 mmol/L [facility] CO2 (BldV) [Partial pressure ]Ordered By: Tiki Saldivar on 07-27-2024 Venous blood partial pressure of carbon dioxide measurement 28.1 mmHg Low 41-51 [facility] Calcium [Mass/Vol]Ordered By : Devon Reagan on 07-27-2024 Serum or plasma calcium measurement (mass/volume) 9.8 mg/dL 7.6-11.0 [facility] Carbon dioxide, total [Moles /volume] in Central venous bloodOrdered By: Devon Reagan on 07-27-2024 Carbon dioxide, total [Moles/volume] in Central venous blood 24.1 mmol/L 21.0-32.0 [facility] Chloride assayOrdered By: Asael Reagan on 07-27-2024 Chloride assay 102 mmol/L 98-108 [facility] Clarity (U)Ordered By: Devon Reagan on 07-27-2024 Urine clarity Clear Clear [facility] Color (U)Ordered By: Devon Crabtree on 07-27-2024 Urine color determination Yellow Yellow [facility] Comprehensive Metabolic Prof ilon 07-27-2024 Albumin [Mass/Vol] 4.3 g/dL Normal 3.4-4.8 [facility] Comment on above: Performed By: #### L 503.6005, L501.2450, L500.4050, L100.0100 ####[facility] [address] [place], [address] Albumin/Globulin [Mass ratio] 1.9 {ratio} Normal 0.9-2.4 [facility] Comment on above: Performed By: #### L 503.6005, L501.2450, L500.4050, L100.0100 ####[facility] [address] [place], [address] ALK PHOS 74 U/L Normal 40-129 [facility] Comment on above: Performed By: #### L 503.6005, L501.2450, L500.4050, L100.0100 ####[facility] [address] [place], [address] ALT [Catalytic activity/Vol] 15 U/L Normal <=46 [facility] Comment on above: Performed By: #### L 503.6005, L501.2450, L500.4050, L100.0100 ####[facility] [address] [place], [address] AST [Catalytic activity/Vol] 27 U/L Normal <=37 [facility] Comment on above: Performed By: #### L 503.6005, L501.2450, L500.4050, L100.0100 ####[facility] [address] [place], [address] Bilirubin [Mass/Vol] 0.56 mg/dL Normal 0.00-1.30 [facility] Comment on above: Performed By: #### L 503.6005, L501.2450, L500.4050, L100.0100 ####[facility] [address] [place], [address] BUN/CRE 21.7 RATIO High 10-20 [facility] Comment on above: Performed By: #### L 503.6005, L501.2450, L500.4050, L100.0100 ####[facility] [address] [place], [address] Calcium [Mass/Vol] 9.8 mg/dL Normal 7.6-11.0 [facility] Comment on above: Performed By: #### L 503.6005, L501.2450, L500.4050, L100.0100 ####[facility] [address] [place], [address] Chloride [Moles/Vol] 102 mmol/L Normal 98-108 [facility] Comment on above: Performed By: #### L 503.6005, L501.2450, L500.4050, L100.0100 ####[facility] [address] [place], [address] CO2 [Moles/Vol] 24.1 mmol/L Normal 21.0-32.0 [facility] Comment on above: Performed By: #### L 503.6005, L501.2450, L500.4050, L100.0100 ####[facility] [address] [place], [address] Creatinine [Mass/Vol] 1.51 mg/dL High 0.70-1.[address] [facility] Comment on above: Performed By: #### L 503.6005, L501.2450, L500.4050, L100.0100 ####[facility] [address] [place], [address] ECRCL 36.04 ml/min Low 50-250 [facility] Comment on above: Performed By: #### L 503.6005, L501.2450, L500.4050, L100.0100 ####[facility] [address] [place], [address] GAP 17 High 5-15 [facility] Comment on above: Performed By: #### L 503.6005, L501.2450, L500.4050, L100.0100 ####[facility] [address] [place], [address] GFR/1.73 sq M.predicted among non-blacks MDRD (S/P/Bld) [Vol rate/Area] 46 mL/min/{1.73_m2} Low >60 [facility] Comment on above: Result Comment: mL/m in/1.73m2 CKD-EPI Creatinine Equation (2020) Performed By: #### L 503.6005, L501.2450, L500.4050, L100.0100 ####[facility] [address] [place], [address] Globulin (S) [Mass/Vol] 2.2 g/dL Normal 2.2-4.2 [facility] Comment on above: Performed By: #### L 503.6005, L501.2450, L500.4050, L100.0100 ####[facility] [address] [place], [address] Glucose [Mass/Vol] 84 mg/dL Normal 70-99 [facility] Comment on above: Performed By: #### L 503.6005, L501.2450, L500.4050, L100.0100 ####[facility] [address] [place], [address] Potassium [Moles/Vol] 3.2 mmol/L Low 3.3-5.[address] [facility] Comment on above: Performed By: #### L 503.6005, L501.2450, L500.4050, L100.0100 ####[facility] [address] [place], [address] Sodium [Moles/Vol] 143 mmol/L Normal 133-145 [facility] Comment on above: Performed By: #### L 503.6005, L501.2450, L500.4050, L100.0100 ####[facility] [address] [place], [address] T PROT 6.5 g/dL Normal 5.9-8.4 [facility] Comment on above: Performed By: #### L 503.6005, L501.2450, L500.4050, L100.0100 ####[facility] [address] [place], [address] Urea nitrogen [Mass/Vol] 33 mg/dL High 4-19 [facility] Comment on above: Performed By: #### L 503.6005, L501.2450, L500.4050, L100.0100 ####[facility] [address] [place], [address] Creatinine [Mass/Vol]Ordered By: Dveon Reagan on 07-27-2024 Serum creatinine measurement (mass/volume) 1.51 mg/dL High 0.70-1.20 [facility] Determination of fraction of inspired oxygenOrdered By: Tiki Saldivar on 07-27-2024 Determination of fraction of inspired oxygen 21.0 [facility] Emergency Department Summary on 07-27-2024 Emergency Department Summary Normal [facility] Eosinophil percentageOrdered By: Devon Reagan on 07-27-2024 Eosinophil percentage 6.0 % High 0-[address] [facility] Erythrocyte distribution wid th (RBC) [Entitic vol]Ordered By: Devon Quintero on 07-27-2024 Erythrocyte distribution width standard deviation 42.6 fl 35.1-43.9 [facility] Erythrocyte distribution wid th (RBC) [Ratio]Ordered By: Devon Reagan on 07-27-2024 Erythrocyte distribution width ratio 12.5 % 11.6-14.6 [facility] Estimation of creatinine terry aranceOrdered By: Devon Reagan on 07-27-2024 Estimation of creatinine clearance 36.04 ml/min Low 50-250 [facility] Ethanol [Mass/Vol]Ordered By : Devon Reagan on 07-27-2024 Serum or plasma ethanol measurement (mass/volume) 127.0 mg/dL High <10.1 [facility] GFR/1.73 sq M.predicted giorgi g non-blacks MDRD (S/P/Bld) [Vol rate/Area]Ordered By: Devon Reagan on 07-27-2024 Glomerular filtration rate (GFR) estimation/1.73 sq m using serum, plasma, or whole b 46 Low >60 [facility] Glucose [Mass/Vol]Ordered By : Devon Reagan on 07-27-2024 Serum glucose measurement (mass/volume) 84 mg/dL 70-99 [facility] H AND P Exam - Hospitaliston 07-27-2024 H&P Exam - Hospitalist Normal [facility] Hematocrit Auto (Bld) [Volum e fraction]Ordered By: Devonjose Reagan on 07-27-2024 Automated blood hematocrit (percentage) 38.4 % Low 40-54 [facility] Hemoglobin measurementOrdere d By: Devon Reagan on 07-27-2024 Hemoglobin measurement 13.5 g/dL 13.0-16.5 [facility] Immature granulocytes/100 WB C Auto (Bld)Ordered By: Devon Tez on 07-27-2024 Automated immature granulocyte percentage 0.300 % 0.0-0.9 [facility] Ketones Test strip Ql (U)Ord ered By: Devonjose Reagan on 07-27-2024 Ketones Ql (U) 5 mg/dl High Negative [facility] Urine ketones detection by test strip 5 mg/dl High Negative [facility] Lactic Acidon 07-27-2024 Lactate [Moles/Vol] 1.9 mmol/L Normal 0.0-2.0 [facility] Comment on above: Order Comment: Y Performed By: #### L 503.6002 ####[facility] [address] [place], [place], [id number] Lactate [Moles/Vol] 4.8 mmol/L Invalid Interpretation Code 0.0-2.0 [facility] Comment on above: Order Comment: Y Result Comment: Crit ical Result(s) Called at 1424 : by: NANO PANTOJA. ??Results read back by same. Performed By: #### L 503.6005 ####[facility] [address] [place], [address] Lactate [Moles/Vol] 4.1 mmol/L Invalid Interpretation Code 0.0-2.0 [facility] Comment on above: Order Comment: Y Result Comment: Crit ical Result(s) Called at 1121: by: NANO MCCORMICK.??Results read back by same.Critical Result(s) Called at: by:??Results read back bysame. AMENDED REPORT 07/27/24 1134 LACTIC ACID previously reported as: 4.1 *H mmol/LCritical Result(s) Called at 1121: by: NANO MCCORMICK.??Results read back by same. Performed By: #### L 503.6005, L501.2450, L500.4050, L100.0100 ####[facility] [address] [place], [address] Lactic acid measurementOrder ed By: Tiki Saldivar on 07-27-2024 Lactic acid measurement 1.9 mmol/L 0.0-2.0 [facility] Lactic acid measurementOrder ed By: Devon Reagan on 07-27-2024 Lactic acid measurement 4.8 mmol/L High 0.0-2.0 [facility] Lipaseon 07-27-2024 Lipase [Catalytic activity/Vol] 47 U/L Normal 13-75 [facility] Comment on above: Result Comment: José cuellar note:LIPASE revised reference range effective 22.New Lipase methodology. Expected to produce lower valuesthan the previous assay method.NEW Reference Range: 13 - 75 U/L Performed By: #### L 503.6005, L501.2450, L500.4050, L100.0100 ####[facility] [address] [place], [address] Lipase measurementOrdered By : Devon Reagan on 07-27-2024 Lipase measurement 47 U/L 13-75 [facility] Lower GI hemoglobin IA Ql (S tl)Ordered By: Devon Reagan on 07-27-2024 Stool gastrointestinal hemoglobin detection by immunologic method Positive Abnormal [facility] Lymphocytes Auto (Unsp spec) [#/Vol]Ordered By: Devon Reagan on 07-27-2024 Absolute lymphocyte count 1.02 X10^3/uL 0.83-4.51 [facility] Lymphocytes/100 WBC Auto (Un sp spec)Ordered By: Devon Reagan on 07-27-2024 Automated lymphocyte count as percentage of total leukocytes 13.4 % Low 19-41 [facility] MCV (RBC) [Entitic vol]Order ed By: Devon Reagan on 07-27-2024 MCV (mean corpuscular volume) determination 93.4 fL 80-94 [facility] Mean corpuscular hemoglobin (MCH) determinationOrdered By: Devon Reagan on 07-27-2024 Mean corpuscular hemoglobin (MCH) determination 32.8 pg High 27.0-32.0 [facility] Mean corpuscular hemoglobin concentration (MCHC) determinationOrdered By: Devon Reagan on 07-27-2024 Mean corpuscular hemoglobin concentration (MCHC) determination 35.2 g/dL 32-36 [facility] Mean platelet volume determi nationOrdered By: Devon Reagan on 07-27-2024 Mean platelet volume determination 9.9 fl 6.2-12.0 [facility] Measurement, pHOrdered By: Aquilino Saldivar on 07-27-2024 pH (Unsp spec) 7.45 [pH] 7.35-7.45 [facility] Monocyte percentageOrdered B y: Devon Reagan on 07-27-2024 Monocyte percentage 5.5 % 0-10 [facility]l (Urine sed)Order ed By: Devon Reagan on 07-27-2024 Mucus Ql (Urine sed) 0 SEEN /hpf [facility] Neutrophil percentageOrdered By: Devon Reagan on 07-27-2024 Neutrophil percentage 73.6 % High 47-[address] [facility] Nitrite Test strip Ql (U)Ord ered By: Devon Reagan on 07-27-2024 Nitrite Ql (U) Negative Negative [facility] No Panel InformationOrdered By: Tiki Saldivar on 07-27-2024 ART [facility] L Radial [facility] Not entered [facility] Room Air [facility] See comment [facility] No Panel InformationOrdered By: Devon Reagan on 07-27-2024 27 U/L <38 [facility] Nucleated red blood cell per centageOrdered By: Devon Reagan on 07-27-2024 Nucleated red blood cell percentage 0 % 0-5 [facility] Oxygen (BldV) [Partial press ure]Ordered By: Tiki Saldivar on 07-27-2024 Venous blood partial pressure of oxygen measurement 31 mmHg 25-40 [facility] Oxygen saturation measuremen tOrdered By: Tiki Saldivar on 07-27-2024 Oxygen saturation measurement 94 % Low 95-99 [facility] Partial pressure of carbon d ioxide measurementOrdered By: Tiki Saldivar on 07-27-2024 Partial pressure of carbon dioxide measurement 32.4 mmHg Low 35-45 [facility] Partial pressure of oxygen m easurementOrdered By: Tiki Saldivar on 07-27-2024 Partial pressure of oxygen measurement 68 mmHG Low 75-100 [facility] Platelet countOrdered By: Asael Reagan on 07-27-2024 Platelet count 380 K/mm3 150-450 [facility] Potassium (Unsp spec) [Mass/ Vol]Ordered By: Devon Reagan on 07-27-2024 Potassium measurement (mass/volume) 3.2 mmol/L Low 3.3-5.1 [facility] Protein Test strip Ql (U)Ord ered By: Devon Reagan on 07-27-2024 Protein Ql (U) 15 mg/dl High Negative [facility] Urine protein assay by test strip, semi-quantitative 15 mg/dl High Negative [facility] RBC Auto (Bld) [#/Vol]Ordere d By: Devon Reagan on 07-27-2024 Automated blood erythrocyte count 4.11 M/mm3 Low 4.6-6.2 [facility] Serum globulin measurementOr dered By: Devon Reagan on 07-27-2024 Serum globulin measurement 2.2 g/dL 2.2-4.2 [facility] Serum or plasma ethanol jenna urement (mass/volume)Ordered By: Devon Quintero on 07-27-2024 Ethanol [Mass/Vol] 127.0 mg/dL High <10.1 [facility] Sodium levelOrdered By: Moncho Reagan on 07-27-2024 Sodium level 143 mmol/L 133-145 [facility] Specific gravity (U) [Rel de nsity]Ordered By: Devon Reagan on 07-27-2024 Urine specific gravity measurement 1.015 1.002-1.030 [facility] Squamous epithelial cells de tection in urine sediment by light microscopyOrdered By: Devon Reagan on 07-27-2024 Epithelial cells.squamous LM Ql (Urine sed) 0 SEEN /hpf 0-5 [facility] Stool Occult Blood iFOBon STOB Positive Normal [facility] Comment on above: Performed By: #### M 100.7900 ####[facility] [address] [place], [place], [id number] Stool gastrointestinal hemog lobin detection by immunologic methodOrdered By: Devon Reagan on 07-27-2024 Lower GI hemoglobin IA Ql (Stl) Positive Abnormal [facility] Total carbon dioxide measure mentOrdered By: Tiki Saldivar on 07-27-2024 CO2 [Moles/Vol] 23 mmol/L [facility] Total carbon dioxide measurement 23 mmol/L [facility] Total proteinOrdered By: Kevin Reagan on 07-27-2024 Total protein 6.5 g/dL 5.9-8.4 [facility] Urea nitrogen [Mass/Vol]Orde red By: Devon Reagan on 07-27-2024 Serum or plasma urea nitrogen measurement (mass/volume) 33 mg/dL High 4-19 [facility] Urinalysis, Completeon 07-27 RBC 0 SEEN Normal 0-5 [facility] Comment on above: Order Comment: ESTRELLA CTOR TO SPECIFY Performed By: #### L 400.0001 ####[facility] [address] [place], [address] BACTERIA 0 SEEN Normal None Seen [facility] Comment on above: Order Comment: ESTRELLA CTOR TO SPECIFY Performed By: #### L 400.0001 ####[facility] [address] [place], [address] EPI,SQUAMOUS 0 SEEN Normal 0-5 [facility] Comment on above: Order Comment: ESTRELLA CTOR TO SPECIFY Performed By: #### L 400.0001 ####[facility] [address] [place], [address] Mucus Ql (Urine sed) 0 SEEN Normal [facility] Comment on above: Order Comment: ESTRELLA CTOR TO SPECIFY Performed By: #### L 400.0001 ####[facility] [address] [place], [address] WBC 0 SEEN Normal 0-[address] [place] [address] Comment on above: Order Comment: ESTRELLA CTOR TO SPECIFY Performed By: #### L 400.0001 ####[facility] [address] [place], [address] Urine clarityOrdered By: Kevin Reagan on 07-27-2024 Clarity (U) Clear Clear [facility] Urine color determinationOrd ered By: Devon Reagan on 07-27-2024 Color (U) Yellow Yellow [facility] Urine glucose detectionOrder ed By: Devon Reagan on 07-27-2024 Glucose Ql (U) Normal mg/dl Normal [facility] Urine glucose detection Normal mg/dl Normal [facility] Urine leukocyte esterase det ection by dipstickOrdered By: Devon Reagan on 07-27-2024 Leukocyte esterase Test strip Ql (U) Negative Negative [facility] Urine pHOrdered By: Devon Onofre on 07-27-2024 pH (U) 6.0 [pH] 5.0 - 8.0 [facility] Urine sediment bacteria coun t by microscopy (number/high power field)Ordered By: Devon Reagan on 07-27-2024 Bacteria LM.HPF (Urine sed) [#/Area] 0 /[HPF] None Seen [facility] Urine specific gravity measu rementOrdered By: [place] MaddieIngrid on 07-27-2024 Specific gravity (U) [Rel density] 1.015 1.002-1.030 [facility] Urine total bilirubin detect ion by test stripOrdered By: Devonjose Reagan on 07-27-2024 Urine total bilirubin detection by test strip Negative Negative [facility] Urine urobilinogen measureme ntOrdered By: Devon Reagan on 07-27-2024 Urobilinogen Ql (U) Normal mg/dl Normal [facility] Venous Blood Gason Blood Gas Type STEPHANIE Normal [facility] Comment on above: Performed By: #### L 9000.0810 ####[facility] [address] [place], [place], [id number] CO2 [Moles/Vol] 23 mmol/L Normal 23-33 [facility] Comment on above: Performed By: #### L 9000.0810 ####[facility] [address] [place], [place], [id number] Comment Normal [facility] Comment on above: Result Comment: Draw n on room air per manufacturing lab technician. Performed By: #### L 9000.0810 ####[facility] [address] [place], [address] FI02 21.0 Normal [facility] Comment on above: Performed By: #### L 9000.0810 ####[facility] [address] [place], [address] HCO3 (Bld) [Moles/Vol] 22 mmol/L Normal 22-26 [facility] Comment on above: Performed By: #### L 9000.0810 ####[facility] [address] [place], [address] O2 Delivery Dev Not entered Normal [facility] Comment on above: Performed By: #### L 9000.0810 ####[facility] [address] [place], [address] SITE vein Normal [facility] Comment on above: Performed By: #### L 9000.0810 ####[facility] [address] [place], [address] VBG BE -2 mmol/L Low -1.0-3.5 [facility] Comment on above: Performed By: #### L 9000.0810 ####[facility] [address] [place], [address] VBG pCO2 28.1 mmHg Low 41-51 [facility] Comment on above: Performed By: #### L 9000.0810 ####[facility] [address] [place], [address] VBG pH 7.50 High 7.32-7.42 [facility] Comment on above: Performed By: #### L 9000.0810 ####[facility] [address] [place], [address] VBG PO2 31 mmHg Normal 25-40 [facility] Comment on above: Performed By: #### L 9000.0810 ####[facility] [address] [place], [address] VBG SO2 67 Normal 50-70 [facility] Comment on above: Performed By: #### L 9000.0810 ####[facility] [address] [place], [address] Venous blood base excess tianna surementOrdered By: Tiki Saldivar on 07-27-2024 Base excess Calc (BldV) [Moles/Vol] -2 mmol/L Low -1.0-3.5 [facility] Venous blood bicarbonate tianna surementOrdered By: Tiki Saldivar on 07-27-2024 HCO3 (Bld) [Moles/Vol] 22 mmol/L [facility] Venous blood bicarbonate measurement 22 mmol/L [facility] Venous blood oxygen saturati on measurementOrdered By: Tiki Saldivar on 07-27-2024 Venous blood oxygen saturation measurement 67 % 50-70 [facility] Venous blood pH measurementO rdered By: Tiki Saldivar on 07-27-2024 pH (BldV) 7.50 [pH] High 7.32-7.42 [facility] Venous blood partial pressur e of carbon dioxide measurementOrdered By: Tiki Saldivar on 07-27-2024 CO2 (BldV) [Partial pressure] 28.1 mm[Hg] Low 41-51 [facility] Venous blood partial pressur e of oxygen measurementOrdered By: Tiki Saldivar on 07-27-2024 Oxygen (BldV) [Partial pressure] 31 mm[Hg] 25-40 [facility] White blood cell (WBC) count Ordered By: Devon Reagan on 07-27-2024 White blood cell (WBC) count 7.6 K/mm3 4.4-11.0 [facility] White blood cell countOrdere d By: Devon Reagan on 07-27-2024 White blood cell count 0 SEEN /hpf 0-5 [facility] White blood cell count 0 SEEN /hpf [facility] pH (BldV)Ordered By: Tiki craig on 07-27-2024 Venous blood pH measurement 7.50 High 7.32-7.42 [facility] pH (U)Ordered By: Devon Royal on 07-27-2024 Urine pH 6.0 5.0 - 8.0 [facility] pH (Unsp spec)Ordered By: Flora Saldivar on 07-27-2024 Measurement, pH 7.45 7.35-7.45 [facility] Absolute lymphocyte countOrd ered By: Nanette Macdonald on 07-26-2024 Lymphocytes Auto (Unsp spec) [#/Vol] 1.15 10*3/uL 0.83-4.51 [facility] Absolute neutrophil countOrd ered By: Nanette Macdonald on 07-26-2024 Absolute neutrophil count 5.3 X10^3/uL 2.0-7.7 [facility] Anion gap [Moles/Vol]Ordered By: Spenser Sanchez on 07-26-2024 Anion gap in Serum or Plasma 16 High 5-15 [facility] Anion gap in Serum or Plasma Ordered By: Spenser Sanchez on 07-26-2024 Anion gap [Moles/Vol] 16 mmol/L High 5-[address] [facility] Automated lymphocyte count a s percentage of total leukocytesOrdered By: Nanette Macdonald on 07-26-2024 Lymphocytes/100 WBC Auto (Unsp spec) 15.3 % Low 19-41 [facility] BUN/creatinine ratioOrdered By: Spenser Sanchez on 07-26-2024 Urea nitrogen/Creatinine [Mass ratio] 19.8 mg/mg 10-20 [facility] BUN/creatinine ratio 19.8 RATIO 10-20 [facility] Basic Metabolic Profile (BMP )on 07-26-2024 BUN/CRE 19.8 RATIO Normal 10-20 [facility] Comment on above: Performed By: #### L 500.2500 ####[facility] [address] [facility] [address] Calcium [Mass/Vol] 9.8 mg/dL Normal 7.6-11.0 [facility] Comment on above: Performed By: #### L 500.2500 ####[facility] [address] [place], [address] Chloride [Moles/Vol] 101 mmol/L Normal 98-108 [facility] Comment on above: Performed By: #### L 500.2500 ####[facility] [address] [place], [address] CO2 [Moles/Vol] 25.6 mmol/L Normal 21.0-32.0 [facility] Comment on above: Performed By: #### L 500.2500 ####[facility] [address] [place], [address] Creatinine [Mass/Vol] 1.50 mg/dL High 0.70-1.[address] [facility] Comment on above: Performed By: #### L 500.2500 ####[facility] [address] [place], [address] GAP 16 High 5-15 [facility] Comment on above: Performed By: #### L 500.2500 ####[facility] [address] [place], [address] GFR/1.73 sq M.predicted among non-blacks MDRD (S/P/Bld) [Vol rate/Area] 47 mL/min/{1.73_m2} Low >60 [facility] Comment on above: Result Comment: mL/m in/1.73m2 CKD-EPI Creatinine Equation (2020) Performed By: #### L 500.2500 ####[facility] [address] [place], [address] Glucose [Mass/Vol] 93 mg/dL Normal 70-99 [facility] Comment on above: Performed By: #### L 500.2500 ####[facility] [address] [place], [address] Potassium [Moles/Vol] 3.3 mmol/L Normal 3.3-5.[address] [facility] Comment on above: Performed By: #### L 500.2500 ####[facility] [address] [place], [address] Sodium [Moles/Vol] 142 mmol/L Normal 133-145 [facility] Comment on above: Performed By: #### L 500.2500 ####[facility] [address] [place], [address] Urea nitrogen [Mass/Vol] 30 mg/dL High 4-19 [facility] Comment on above: Performed By: #### L 500.2500 ####[facility] [address] [place], [address] Basophil percentageOrdered B y: Nanette Macdonald on 07-26-2024 Basophils/100 WBC (Bld) 1.3 % High 0-1 [facility] Basophil percentage 1.3 % High 0-1 [facility] CBC W/Diff, Automatedon 07-02 Absolute Lymph 1.15 X10 3/uL Normal 0.83-4.51 [facility] Comment on above: Performed By: #### L 100.0100 ####[facility] [address] [place], [address] Absolute Neut 5.3 X10 3/uL Normal 2.0-7.7 [facility] Comment on above: Performed By: #### L 100.0100 ####[facility] [address] [place], [address] Basophils/100 WBC (Bld) 1.3 % High 0-1 [facility] Comment on above: Performed By: #### L 100.0100 ####[facility] [address] [place], [address] Eosinophils/100 WBC (Bld) 6.0 % High 0-5 [facility] Comment on above: Performed By: #### L 100.0100 ####[facility] [address] [place], [address] Erythrocyte distribution width (RBC) [Ratio] 12.2 % Normal 11.6-14.6 [facility] Comment on above: Performed By: #### L 100.0100 ####[facility] [address] [place], [address] Hematocrit (Bld) [Volume fraction] 40.6 % Normal 40-54 [facility] Comment on above: Performed By: #### L 100.0100 ####[facility] [address] [place], [address] Hemoglobin (Bld) [Mass/Vol] 14.0 g/dL Normal 13.0-16.5 [facility] Comment on above: Performed By: #### L 100.0100 ####[facility] [address] [place], [address] IG% 0.400 Normal 0.0-0.9 [facility] Comment on above: Result Comment: IG% - Immature Granulocytes (promyelocytes, myelocytes andmetamyelocytes) > 1% indicates that a LEFT SHIFT is Present. Performed By: #### L 100.0100 ####[facility] [address] [place], [address] Lymphocytes/100 WBC (Bld) 15.3 % Low 19-41 [facility] Comment on above: Performed By: #### L 100.0100 ####[facility] [address] [place], [address] MCH (RBC) [Entitic mass] 32.5 pg High 27.0-32.0 [facility] Comment on above: Performed By: #### L 100.0100 ####[facility] [address] [place], [address] MCHC (RBC) [Mass/Vol] 34.5 g/dL Normal 32-[address] [facility] Comment on above: Performed By: #### L 100.0100 ####[facility] [address] [place], [address] MCV (RBC) [Entitic vol] 94.2 fL High 80-94 [facility] Comment on above: Performed By: #### L 100.0100 ####[facility] [address] [place], [address] Monocytes/100 WBC (Bld) 6.4 % Normal 0-10 [facility] Comment on above: Performed By: #### L 100.0100 ####[facility] [address] [place], [address] Neutrophils/100 WBC (Bld) 70.6 % High 47-70 [facility] Comment on above: Performed By: #### L 100.0100 ####[facility] [address] [place], [address] Nucleated RBC (Bld) [#/Vol] 0 10*3/uL Normal 0-5 [facility] Comment on above: Performed By: #### L 100.0100 ####[facility] [address] [place], [address] Platelet mean volume (Bld) [Entitic vol] 10.5 fL Normal 6.2-12.0 [facility] Comment on above: Performed By: #### L 100.0100 ####[facility] [address] [place], [address] Platelets (Bld) [#/Vol] 380 10*3/uL Normal 150-450 [facility] Comment on above: Performed By: #### L 100.0100 ####[facility] [address] [place], [address] RBC (Bld) [#/Vol] 4.31 10*6/uL Low 4.6-6.2 [facility] Comment on above: Performed By: #### L 100.0100 ####[facility] [address] [place], [address] RDW SD 42.5 fl Normal 35.1-43.9 [facility] Comment on above: Performed By: #### L 100.0100 ####[facility] [address] [place] [place], [address] WBC (Bld) [#/Vol] 7.5 10*3/uL Normal 4.4-11.0 [facility] Comment on above: Performed By: #### L 100.0100 ####[facility] [address] [place] [place], [address] Calcium [Mass/Vol]Ordered By : Spenser Sanchez on 07-26-2024 Serum or plasma calcium measurement (mass/volume) 9.8 mg/dL 7.6-11.0 [facility] Carbon dioxide, total [Moles /volume] in Central venous bloodOrdered By: Spenser Sanchez on 07-26-2024 CO2 [Moles/Vol] 25.6 mmol/L 21.0-32.0 [facility] Carbon dioxide, total [Moles/volume] in Central venous blood 25.6 mmol/L 21.0-32.0 [facility] Chloride assayOrdered By: Olaf Sanchez on 07-26-2024 Chloride [Moles/Vol] 101 mmol/L 98-108 [facility] Chloride assay 101 mmol/L 98-108 [facility] Creatinine [Mass/Vol]Ordered By: Spenser Sanchez on 07-26-2024 Serum creatinine measurement (mass/volume) 1.50 mg/dL High 0.70-1.20 [facility] Eosinophil percentageOrdered By: Nanette Macdonald on 07-26-2024 Eosinophils/100 WBC (Bld) 6.0 % High 0-5 [facility] Eosinophil percentage 6.0 % High 0-[address] [facility] Erythrocyte distribution wid th (RBC) [Ratio]Ordered By: Nanette Macdonald on 07-26-2024 Erythrocyte distribution width ratio 12.2 % 11.6-14.6 [facility] Erythrocyte distribution wid th ratioOrdered By: Nanette Macdonald on 07-26-2024 Erythrocyte distribution width (RBC) [Ratio] 12.2 % 11.6-14.6 [facility] Erythrocyte distribution wid th standard deviationOrdered By: Nanette Macdonald on 07-26-2024 Erythrocyte distribution width (RBC) [Ratio] 42.5 fl 35.1-43.9 [facility] Erythrocyte distribution width standard deviation 42.5 fl 35.1-43.9 [facility] GFR/1.73 sq M.predicted giorgi g non-blacks MDRD (S/P/Bld) [Vol rate/Area]Ordered By: Spenser Sanchez on 07-26-2024 Glomerular filtration rate (GFR) estimation/1.73 sq m using serum, plasma, or whole b 47 Low >60 [facility] Glomerular filtration rate ( GFR) estimation/1.73 sq m using serum, plasma, or whole bOrdered By: Spenser Sanchez on 07-26-2024 GFR/1.73 sq M.predicted among non-blacks MDRD (S/P/Bld) [Vol rate/Area] 47 mL/min/{1.73_m2} Low >60 [facility] Glucose [Mass/Vol]Ordered By : Spenser Sanchez on 07-26-2024 Serum glucose measurement (mass/volume) 93 mg/dL 70-99 [facility] Hematocrit Auto (Bld) [Volum e fraction]Ordered By: Nanette Macdonald on 07-26-2024 Hematocrit (Bld) [Volume fraction] 40.6 % 40-54 [facility] Automated blood hematocrit (percentage) 40.6 % 40-54 [facility] Hemoglobin measurementOrdere d By: Nanette Macdonald on 07-26-2024 Hemoglobin (Bld) [Mass/Vol] 14.0 g/dL 13.0-16.5 [facility] Hemoglobin measurement 14.0 g/dL 13.0-16.5 [facility] Immature granulocytes/100 WB C Auto (Bld)Ordered By: Nanette Macdonald on 07-26-2024 Immature granulocytes/100 WBC (Bld) 0.400 % 0.0-0.9 [facility] Automated immature granulocyte percentage 0.400 % 0.0-0.9 [facility] Lymphocytes Auto (Unsp spec) [#/Vol]Ordered By: Nanette Macdonald on 07-26-2024 Absolute lymphocyte count 1.15 X10^3/uL 0.83-4.51 [facility] Lymphocytes/100 WBC Auto (Un sp spec)Ordered By: Nanette Macdonald on 07-26-2024 Automated lymphocyte count as percentage of total leukocytes 15.3 % Low 19-41 [facility] MCV (RBC) [Entitic vol]Order ed By: Nanette Macdonald on 07-26-2024 MCV (mean corpuscular volume) determination 94.2 fL High 80-94 [facility] MCV (mean corpuscular volume ) determinationOrdered By: Nanette Macdonald on 07-26-2024 MCV (RBC) [Entitic vol] 94.2 fL High 80-94 [facility] Mean corpuscular hemoglobin (MCH) determinationOrdered By: Nanette Macdonald on 07-26-2024 MCH (RBC) [Entitic mass] 32.5 pg High 27.0-32.0 [facility] Mean corpuscular hemoglobin (MCH) determination 32.5 pg High 27.0-32.0 [facility] Mean corpuscular hemoglobin concentration (MCHC) determinationOrdered By: Nanette Macdonald on 07-26-2024 Mean corpuscular hemoglobin concentration (MCHC) determination 34.5 g/dL 32-36 [facility] Mean platelet volume determi nationOrdered By: Nanette Macdonald on 07-26-2024 Mean platelet volume determination 10.5 fl 6.2-12.0 [facility] Monocyte percentageOrdered B y: Nanette Macdonald on 07-26-2024 Monocytes/100 WBC (Bld) 6.4 % 0-10 [facility] Monocyte percentage 6.4 % 0-10 [facility] Neutrophil percentageOrdered By: Nanette Macdonald on 07-26-2024 Neutrophils/100 WBC (Bld) 70.6 % High 47-70 [facility] Neutrophil percentage 70.6 % High 47-[address] [facility] Nucleated red blood cell per centageOrdered By: Nanette Macdonald on 07-26-2024 Nucleated red blood cell percentage 0 % 0-5 [facility] Platelet countOrdered By: Serjio Macdonald on 07-26-2024 Platelets (Bld) [#/Vol] 380 10*3/uL 150-450 [facility] Platelet count 380 K/mm3 150-450 [facility] Potassium (Unsp spec) [Mass/ Vol]Ordered By: Spenser Sanchez on 07-26-2024 Potassium measurement (mass/volume) 3.3 mmol/L 3.3-5.1 [facility] Potassium measurement (mass/ volume)Ordered By: Spenser Sanchez on 07-26-2024 Potassium (Unsp spec) [Mass/Vol] 3.3 mmol/L 3.3-5.1 [facility] RBC Auto (Bld) [#/Vol]Ordere d By: Nanette Macdonald on 07-26-2024 RBC (Bld) [#/Vol] 4.31 10*6/uL Low 4.6-6.2 [facility] Automated blood erythrocyte count 4.31 M/mm3 Low 4.6-6.2 [facility] Serum creatinine measurement (mass/volume)Ordered By: Spenser Sanchez on 07-26-2024 Creatinine [Mass/Vol] 1.50 mg/dL High 0.70-1.[address] [facility] Serum glucose measurement (m ass/volume)Ordered By: Spenser Sanchez on 07-26-2024 Glucose [Mass/Vol] 93 mg/dL 70-99 [facility] Serum or plasma calcium jenna urement (mass/volume)Ordered By: Spenser Sanchez on 07-26-2024 Calcium [Mass/Vol] 9.8 mg/dL 7.6-11.0 [facility] Serum or plasma urea nitroge n measurement (mass/volume)Ordered By: Spenser Sanchez on 07-26-2024 Urea nitrogen [Mass/Vol] 30 mg/dL High 08-19 [facility] Sodium levelOrdered By: Quincy Sanchez on 07-26-2024 Sodium [Moles/Vol] 142 mmol/L 133-145 [facility] Sodium level 142 mmol/L 133-145 [facility] Urea nitrogen [Mass/Vol]Orde red By: Spenser Sanchez on 07-26-2024 Serum or plasma urea nitrogen measurement (mass/volume) 30 mg/dL High - [facility] White blood cell (WBC) count Ordered By: Nanette Macdonald on 07-26-2024 WBC (Bld) [#/Vol] 7.5 10*3/uL 4.4-11.0 [facility] White blood cell (WBC) count 7.5 K/mm3 4.4-11.0 [facility] Colonoscopy Reporton Colonoscopy Report Normal [facility] MR/POSTOP.ANEon 07-18-2024 MR/POSTOP.ANE Normal [facility] MR/[id number] 07-18-2024 MR/POSTOPAN2 Normal [facility] Surgery Specimen Level Vinayak 07-18-2024 Surgery Specimen Level IV Normal [facility] Comment on above: Performed By: #### P SUIV ####[facility] [address] [place], [address] MR/PAT.ANEon 07-17-2024 MR/PAT.ANE Normal [facility] Pulmonary Visit Reporton Pulmonary Visit Report Normal [facility] Chest without Contraston Chest without Contrast Normal [facility] MR/BMS.BVSon 05-11-2024 MR/BMS.BVS Normal [facility] Abd Aortic/IVC Duplex scanon 05-04-2024 Abd Aortic/IVC Duplex scan Normal [facility] Carotid Duplex Ultrasoundon 05-04-2024 Carotid Duplex Ultrasound Normal [facility] 12 Lead EKGon 04-30-2024 12 Lead EKG Normal [facility] Absolute neutrophil countOrd ered By: Faizan Dotson on 04-30-2024 Absolute neutrophil count 8.6 X10^3/uL High 2.0-7.7 [facility] BNP (brain natriuretic pepti de measurement)Ordered By: Faizan Dotson on 04-30-2024 BNP (brain natriuretic peptide measurement) 73.3 pg/mL 0-100 [facility] BNP,B-Type NATRIURETIC PEPTI Cooper 04-30-2024 Natriuretic peptide B (Bld) [Mass/Vol] 73.3 pg/mL Normal 0-100 [facility] Comment on above: Performed By: #### L 503.6620, L500.2500, L100.0100, L501.4020 ####[facility] [address] [place], [address] Basic Metabolic Profile (BMP )on 04-30-2024 BUN/CRE 14.1 RATIO Normal 10-20 [facility] Comment on above: Order Comment: 'TROP ' Serial specimen #1, #2 or #3: 1 Performed By: #### L 503.6620, L500.2500, L100.0100, L501.4020 ####[facility] [address] [place], [address] CA,Total 9.3 mg/dL Normal 8.5-10.1 [facility] Comment on above: Order Comment: 'TROP ' Serial specimen #1, #2 or #3: 1 Performed By: #### L 503.6620, L500.2500, L100.0100, L501.4020 ####[facility] [address] [place], [address] Chloride [Moles/Vol] 106 mmol/L Normal 98-107 [facility] Comment on above: Order Comment: 'TROP ' Serial specimen #1, #2 or #3: 1 Performed By: #### L 503.6620, L500.2500, L100.0100, L501.4020 ####[facility] [address] [place], [address] CO2 [Moles/Vol] 27.0 mmol/L Normal 21.0-32.0 [facility] Comment on above: Order Comment: 'TROP ' Serial specimen #1, #2 or #3: 1 Performed By: #### L 503.6620, L500.2500, L100.0100, L501.4020 ####[facility] [address] [place], [address] Creatinine [Mass/Vol] 1.42 mg/dL High 0.70-1.[address] [facility] Comment on above: Order Comment: 'TROP ' Serial specimen #1, #2 or #3: 1 Result Comment: The validity of the calculated GFR GFRAA in patients over70 years has not been determined. Clinical correlation isessential. Performed By: #### L 503.6620, L500.2500, L100.0100, L501.4020 ####[facility] [address] [place], [address] ECRCL 37.73 ml/min Normal [facility] Comment on above: Order Comment: 'TROP ' Serial specimen #1, #2 or #3: 1 Performed By: #### L 503.6620, L500.2500, L100.0100, L501.4020 ####[facility] [address] [place], [address] EST GFR - AA 62 mL/min Normal >60 [facility] Comment on above: Order Comment: 'TROP ' Serial specimen #1, #2 or #3: 1 Result Comment: Afri can Jordanian GFR Calc Performed By: #### L 503.6620, L500.2500, L100.0100, L501.4020 ####[facility] [address] [place], [address] GAP 8 Normal 5-15 [facility] Comment on above: Order Comment: 'TROP ' Serial specimen #1, #2 or #3: 1 Performed By: #### L 503.6620, L500.2500, L100.0100, L501.4020 ####[facility] [address] [place], [address] GFR/1.73 sq M.predicted among non-blacks MDRD (S/P/Bld) [Vol rate/Area] 51 mL/min/{1.73_m2} Low >60 [facility] Comment on above: Order Comment: 'TROP ' Serial specimen #1, #2 or #3: 1 Result Comment: Non- GFR Calc Performed By: #### L 503.6620, L500.2500, L100.0100, L501.4020 ####[facility] [address] [place], [address] Glucose [Mass/Vol] 114 mg/dL High 74-106 [facility] Comment on above: Order Comment: 'TROP ' Serial specimen #1, #2 or #3: 1 Result Comment: Fast ing Glucose result from 100 to 125 mg/dLsuggests IMPAIRED HOMEOSTASIS per A.D.A. criteria. Performed By: #### L 503.6620, L500.2500, L100.0100, L501.4020 ####[facility] [address] [place], [address] Potassium [Moles/Vol] 3.5 mmol/L Normal 3.5-5.[address] [facility] Comment on above: Order Comment: 'TROP ' Serial specimen #1, #2 or #3: 1 Performed By: #### L 503.6620, L500.2500, L100.0100, L501.4020 ####[facility] [address] [place], [address] Sodium [Moles/Vol] 141 mmol/L Normal 136-145 [facility] Comment on above: Order Comment: 'TROP ' Serial specimen #1, #2 or #3: 1 Performed By: #### L 503.6620, L500.2500, L100.0100, L501.4020 ####[facility] [address] [place], [address] Urea nitrogen [Mass/Vol] 20 mg/dL High 7-18 [facility] Comment on above: Order Comment: 'TROP ' Serial specimen #1, #2 or #3: 1 Performed By: #### L 503.6620, L500.2500, L100.0100, L501.4020 ####[facility] [address] [place], [address] Basophil percentageOrdered B y: Faizan Dotson on 04-30-2024 Basophil percentage 0.5 % 0-1 [facility] Blood urea nitrogen (BUN)/cr eatinine ratioOrdered By: Faizan Dotson on 04-30-2024 Blood urea nitrogen (BUN)/creatinine ratio 14.1 RATIO 02-19 [facility] CBC W/Diff, Automatedon - Absolute Lymph 0.63 X10 3/uL Low 0.83-4.51 [facility] Comment on above: Performed By: #### L 503.6620, L500.2500, L100.0100, L501.4020 ####[facility] [address] [place], [address] Absolute Neut 8.6 X10 3/uL High 2.0-7.7 [facility] Comment on above: Performed By: #### L 503.6620, L500.2500, L100.0100, L501.4020 ####[facility] [address] [place], [address] Basophils/100 WBC (Bld) 0.5 % Normal 0-1 [facility] Comment on above: Performed By: #### L 503.6620, L500.2500, L100.0100, L501.4020 ####[facility] [address] [place], [address] Eosinophils/100 WBC (Bld) 2.7 % Normal 0-5 [facility] Comment on above: Performed By: #### L 503.6620, L500.2500, L100.0100, L501.4020 ####[facility] [address] [place], [address] Erythrocyte distribution width (RBC) [Ratio] 14.6 % Normal 11.6-14.6 [facility] Comment on above: Performed By: #### L 503.6620, L500.2500, L100.0100, L501.4020 ####[facility] [address] [place], [address] Hematocrit (Bld) [Volume fraction] 37.8 % Low 40-54 [facility] Comment on above: Performed By: #### L 503.6620, L500.2500, L100.0100, L501.4020 ####[facility] [address] [place], [address] Hemoglobin (Bld) [Mass/Vol] 12.7 g/dL Low 13.0-16.5 [facility] Comment on above: Performed By: #### L 503.6620, L500.2500, L100.0100, L501.4020 ####[facility] [address] [place], [address] IG% 0.700 Normal 0.0-0.9 [facility] Comment on above: Result Comment: IG% - Immature Granulocytes (promyelocytes, myelocytes andmetamyelocytes) > 1% indicates that a LEFT SHIFT is Present. Performed By: #### L 503.6620, L500.2500, L100.0100, L501.4020 ####[facility] [address] [place], [address] Lymphocytes/100 WBC (Bld) 6.2 % Low 19-41 [facility] Comment on above: Performed By: #### L 503.6620, L500.2500, L100.0100, L501.4020 ####[facility] [address] [place], [address] MCH (RBC) [Entitic mass] 34.5 pg High 27.0-32.0 [facility] Comment on above: Performed By: #### L 503.6620, L500.2500, L100.0100, L501.4020 ####[facility] [address] [place], [address] MCHC (RBC) [Mass/Vol] 33.6 g/dL Normal 32-[address] [facility] Comment on above: Performed By: #### L 503.6620, L500.2500, L100.0100, L501.4020 ####[facility] [address] [place], [address] MCV (RBC) [Entitic vol] 102.7 fL High 80-94 [facility] Comment on above: Performed By: #### L 503.6620, L500.2500, L100.0100, L501.4020 ####[facility] [address] [place], [address] Monocytes/100 WBC (Bld) 5.9 % Normal 0-10 [facility] Comment on above: Performed By: #### L 503.6620, L500.2500, L100.0100, L501.4020 ####[facility] [address] [place], [address] Neutrophils/100 WBC (Bld) 84.0 % High 47-70 [facility] Comment on above: Performed By: #### L 503.6620, L500.2500, L100.0100, L501.4020 ####[facility] [address] [place], [address] Nucleated RBC (Bld) [#/Vol] 0 10*3/uL Normal 0-5 [facility] Comment on above: Performed By: #### L 503.6620, L500.2500, L100.0100, L501.4020 ####[facility] [address] [place], [address] Platelet mean volume (Bld) [Entitic vol] 9.0 fL Normal 6.2-12.0 [facility] Comment on above: Performed By: #### L 503.6620, L500.2500, L100.0100, L501.4020 ####[facility] [address] [place], [address] Platelets (Bld) [#/Vol] 335 10*3/uL Normal 150-450 [facility] Comment on above: Performed By: #### L 503.6620, L500.2500, L100.0100, L501.4020 ####[facility] [address] [place], [address] RBC (Bld) [#/Vol] 3.68 10*6/uL Low 4.6-6.2 [facility] Comment on above: Performed By: #### L 503.6620, L500.2500, L100.0100, L501.4020 ####[facility] [address] [place], [address] RDW SD 55.5 fl High 35.1-43.9 [facility] Comment on above: Performed By: #### L 503.6620, L500.2500, L100.0100, L501.4020 ####[facility] [address] [place], [address] WBC (Bld) [#/Vol] 10.2 10*3/uL Normal 4.4-11.0 [facility] Comment on above: Performed By: #### L 503.6620, L500.2500, L100.0100, L501.4020 ####[facility] [address] [place], [address] Calcium [Mass/Vol]Ordered By : Faizan Dotson on 04-30-2024 Serum or plasma calcium measurement (mass/volume) 9.3 mg/dL 8.5-10.1 [facility] Carbon dioxide measurementOr dered By: Faizan Dotson on 04-30-2024 Carbon dioxide measurement 27.0 mmol/L 21.0-32.0 [facility] Chest 1 View (Portable)on Chest 1 View (Portable) Normal [facility] Chloride measurementOrdered By: Faizan Dotson on 04-30-2024 Chloride measurement 106 mmol/L 98-107 [facility] Creatinine [Mass/Vol]Ordered By: Faizan Dotson on 04-30-2024 Serum or plasma creatinine measurement (mass/volume) 1.42 mg/dL High 0.70-1.30 [facility] Emergency Department Summary on 04-30-2024 Emergency Department Summary Normal [facility] Eosinophil percentageOrdered By: Faizan Dotson on 04-30-2024 Eosinophil percentage 2.7 % 0-[address] [facility] Erythrocyte distribution wid th (RBC) [Ratio]Ordered By: Faizan Dotson on 04-30-2024 Erythrocyte distribution width ratio 14.6 % 11.6-14.6 [facility] Erythrocyte distribution wid th standard deviationOrdered By: Faizan Dotson on 04-30-2024 Erythrocyte distribution width standard deviation 55.5 fl High 35.1-43.9 [facility] Estimated glomerular filtrat ion rate (GFR) AmericanOrdered By: Faizan Dotson on 04-30-2024 Estimated glomerular filtration rate (GFR) 62 mL/min >60 [facility] Estimation of creatinine terry aranceOrdered By: Faizan Dotson on 04-30-2024 Estimation of creatinine clearance 37.73 ml/min [facility] Glomerular filtration rate ( GFR) estimationOrdered By: Faizan Dotson on 04-30-2024 Glomerular filtration rate (GFR) estimation 51 mL/min Low >60 [facility] Glucose measurementOrdered B y: Faizan Dotson on 04-30-2024 Glucose measurement 114 mg/dL High 74-106 [facility] Hematocrit Auto (Bld) [Volum e fraction]Ordered By: Faizan Dotson on 04-30-2024 Automated blood hematocrit (percentage) 37.8 % Low 40-54 [facility] Hemoglobin measurementOrdere d By: Faizan Dotson on 04-30-2024 Hemoglobin measurement 12.7 g/dL Low 13.0-16.5 [facility] Immature granulocytes/100 WB C Auto (Bld)Ordered By: Faizan Dotson on 04-30-2024 Automated immature granulocyte percentage 0.700 % 0.0-0.9 [facility] L501.4020on 04-30-2024 TROPONIN-I HS 8 pg/mL Normal 3.0-78.0 [facility] Comment on above: Order Comment: 'TROP ' Serial specimen #1, #2 or #3: 1 Result Comment: Plelynne cuellar Note: New Test Units and Gender Specific Reference Ranges. For more information see Policy Stat Procedure [place] High Sensitivity Troponin (TNIH) and attachments. Performed By: #### L 503.6620, L500.2500, L100.0100, L501.4020 ####[facility] [address] [place], [address] Lymphocytes Auto (Unsp spec) [#/Vol]Ordered By: Faizan Dotson on 04-30-2024 Absolute lymphocyte count 0.63 X10^3/uL Low 0.83-4.51 [facility] Lymphocytes/100 WBC Auto (Un sp spec)Ordered By: Faizan Dotson on 04-30-2024 Automated lymphocyte count as percentage of total leukocytes 6.2 % Low 19-41 [facility] M100.678on 04-30-2024 M100.678 Pending SARS-CoV-2 (COVID 19) Negative INFLUENZA A Negative INFLUENZA B Negative RSV PCR Negative Normal [facility] Comment on above: Performed By: #### M 100.678 ####[facility] [address] [place], [place], [address] MCV (RBC) [Entitic vol]Order ed By: Faizan Dotson on 04-30-2024 MCV (mean corpuscular volume) determination 102.7 fL High 80-94 [facility] Mean corpuscular hemoglobin (MCH) determinationOrdered By: Faizan Dotson on 04-30-2024 Mean corpuscular hemoglobin (MCH) determination 34.5 pg High 27.0-32.0 [facility] Mean corpuscular hemoglobin concentration (MCHC) determinationOrdered By: Faizan Dotson on 04-30-2024 Mean corpuscular hemoglobin concentration (MCHC) determination 33.6 g/dL 32-36 [facility] Mean platelet volume determi nationOrdered By: Faizan Dotson on 04-30-2024 Mean platelet volume determination 9.0 fl 6.2-12.0 [facility] Monocyte percentageOrdered B y: Faizan Dotson on 04-30-2024 Monocyte percentage 5.9 % 0-10 [facility] Neutrophil percentageOrdered By: Faizan Dotson on 04-30-2024 Neutrophil percentage 84.0 % High 47-[address] [facility] Nucleated red blood cell per centageOrdered By: Faizan Dotson on 04-30-2024 Nucleated red blood cell percentage 0 % 0-5 [facility] Platelet countOrdered By: Rell Dotson on 04-30-2024 Platelet count 335 K/mm3 150-450 [facility] Potassium measurementOrdered By: Faizan Dotson on 04-30-2024 Potassium measurement 3.5 mmol/L 3.5-5.[address] [facility] RBC Auto (Bld) [#/Vol]Ordere d By: Faizan Dotson on 04-30-2024 Automated blood erythrocyte count 3.68 M/mm3 Low 4.6-6.2 [facility] Serum anion gap measurementO rdered By: Faizan Dotson on 04-30-2024 Serum anion gap measurement 8 5-15 [facility] Sodium levelOrdered By: Jay Dotson on 04-30-2024 Sodium level 141 mmol/L 136-145 [facility] Troponin IOrdered By: Faizan Dotson on 04-30-2024 Troponin I 8 pg/mL 3.0-78.0 [facility] Urea nitrogen [Mass/Vol]Orde red By: Faizan Dotson on 04-30-2024 Serum or plasma urea nitrogen measurement (mass/volume) 20 mg/dL High -18 [facility] White blood cell (WBC) count Ordered By: Faizan Dotson on 04-30-2024 White blood cell (WBC) count 10.2 K/mm3 4.4-11.0 [facility] Office Visit Reporton 2023 Office Visit Report Normal [facility] Basic Metabolic Profile (BMP )on 04-19-2024 BUN/CRE 18.0 RATIO Normal - [facility] Comment on above: Performed By: #### L 500.2500 ####[facility] [address] [place], [address] CA,Total 9.8 mg/dL Normal 8.5-10.1 [facility] Comment on above: Performed By: #### L 500.2500 ####[facility] [address] [place], [address] Chloride [Moles/Vol] 102 mmol/L Normal 98-107 [facility] Comment on above: Performed By: #### L 500.2500 ####[facility] [address] [place], [address] CO2 [Moles/Vol] 32.0 mmol/L Normal 21.0-32.0 [facility] Comment on above: Performed By: #### L 500.2500 ####[facility] [address] [place], [address] Creatinine [Mass/Vol] 1.67 mg/dL High 0.70-1.[address] [facility] Comment on above: Result Comment: The validity of the calculated GFR GFRAA in patients over70 years has not been determined. Clinical correlation isessential. Performed By: #### L 500.2500 ####[facility] [address] [place], [address] EST GFR - AA 51 mL/min Low >60 [facility] Comment on above: Result Comment: Afri can Jordanian GFR Calc Performed By: #### L 500.2500 ####[facility] [address] [place], [address] GAP 6 Normal 5-15 [facility] Comment on above: Performed By: #### L 500.2500 ####[facility] [address] [place], [address] GFR/1.73 sq M.predicted among non-blacks MDRD (S/P/Bld) [Vol rate/Area] 42 mL/min/{1.73_m2} Low >60 [facility] Comment on above: Result Comment: Non- GFR Calc Performed By: #### L 500.2500 ####[facility] [address] [place], [address] Glucose [Mass/Vol] 93 mg/dL Normal 74-106 [facility] Comment on above: Performed By: #### L 500.2500 ####[facility] [address] [place], [address] Potassium [Moles/Vol] 2.8 mmol/L Low 3.5-5.[address] [facility] Comment on above: Performed By: #### L 500.2500 ####[facility] [address] [place], [address] Sodium [Moles/Vol] 140 mmol/L Normal 136-145 [facility] Comment on above: Performed By: #### L 500.2500 ####[facility] [address] [place], [address] Urea nitrogen [Mass/Vol] 30 mg/dL High 7-18 [facility] Comment on above: Performed By: #### L 500.2500 ####[facility] [address] [place], [address] Blood urea nitrogen (BUN)/cr eatinine ratioOrdered By: Spenser Sanchez on 04-19-2024 Blood urea nitrogen (BUN)/creatinine ratio 18.0 RATIO 10-20 [facility] Calcium [Mass/Vol]Ordered By : Spenser Sanchez on 04-19-2024 Serum or plasma calcium measurement (mass/volume) 9.8 mg/dL 8.5-10.1 [facility] Carbon dioxide measurementOr dered By: Spenser Sanchez on 04-19-2024 Carbon dioxide measurement 32.0 mmol/L 21.0-32.0 [facility] Chloride measurementOrdered By: Spenser Sanchez on 04-19-2024 Chloride measurement 102 mmol/L 98-107 [facility] Creatinine [Mass/Vol]Ordered By: Spenser Sanchez on 04-19-2024 Serum or plasma creatinine measurement (mass/volume) 1.67 mg/dL High 0.70-1.30 [facility] Estimated glomerular filtrat ion rate (GFR) AmericanOrdered By: Spenser Sanchez on 04-19-2024 Estimated glomerular filtration rate (GFR) 51 mL/min Low >60 [facility] Glomerular filtration rate ( GFR) estimationOrdered By: Spenser Sanchez on 04-19-2024 Glomerular filtration rate (GFR) estimation 42 mL/min Low >60 [facility] Glucose measurementOrdered B y: Spenser Sanchez on 04-19-2024 Glucose measurement 93 mg/dL 74-106 [facility] Internal Medicine Office Vis iton 04-19-2024 Internal Medicine Office Visit Normal [facility] Potassium measurementOrdered By: Spenser Sanchez on 04-19-2024 Potassium measurement 2.8 mmol/L Low 3.5-5.[address] [facility] Serum anion gap measurementO rdered By: Spenser Sanchez on 04-19-2024 Serum anion gap measurement 6 5-15 [facility] Sodium levelOrdered By: Quincy Sanchez on 04-19-2024 Sodium level 140 mmol/L 136-145 [facility] Urea nitrogen [Mass/Vol]Orde red By: Spenser Sanchez on 04-19-2024 Serum or plasma urea nitrogen measurement (mass/volume) 30 mg/dL High 7-18 [facility] 12 Lead EKGon 04-11-2024 12 Lead EKG Normal [facility] ALP [Catalytic activity/Vol] Ordered By: Xavi Almonte on 04-11-2024 Serum or plasma alkaline phosphatase measurement 73 U/L 45-117 [facility] ALT [Catalytic activity/Vol] Ordered By: Xavi Almonte on 04-11-2024 Serum or plasma alanine aminotransferase (ALT) measurement 13 U/L Low 16-61 [facility] Absolute neutrophil countOrd ered By: Xavi Almonte on 04-11-2024 Absolute neutrophil count 8.8 X10^3/uL High 2.0-7.7 [facility] Albumin [Mass/Vol]Ordered By : Xavi Almonte on 04-11-2024 Serum or plasma albumin measurement (mass/volume) 3.3 g/dL 3.2-5.0 [facility] Albumin to globulin ratioOrd ered By: Xavi Almonte on 04-11-2024 Albumin to globulin ratio 1.2 RATIO 0.9-2.4 [facility] Automated lymphocyte count a s percentage of total leukocytesOrdered By: Xavi Almonte on 04-11-2024 Automated lymphocyte count as percentage of total leukocytes 7.4 % 0- [facility] Basophil percentageOrdered B y: Xavi Almonte on 04-11-2024 Basophil percentage 0.7 % 0- [facility] Bilirubin, totalOrdered By: Xavi Almonte on 04-11-2024 Bilirubin, total 1.00 mg/dL 0.20-1.00 [facility] Blood urea nitrogen (BUN)/cr eatinine ratioOrdered By: Xavi Almonte on 04-11-2024 Blood urea nitrogen (BUN)/creatinine ratio 20.7 RATIO High 10-20 [facility] CBC W/Diff, Automatedon 04-02 Absolute Lymph 0.79 X10 3/uL Low 0.83-4.51 [facility] Comment on above: Performed By: #### L 100.0100, L501.5425, L500.4050 ####[facility] [address] [place], [address] Absolute Neut 8.8 X10 3/uL High 2.0-7.7 [facility] Comment on above: Performed By: #### L 100.0100, L501.5425, L500.4050 ####[facility] [address] [place], [address] Basophils/100 WBC (Bld) 0.7 % Normal 0-1 [facility] Comment on above: Performed By: #### L 100.0100, L501.5425, L500.4050 ####[facility] [address] [place], [address] Eosinophils/100 WBC (Bld) 0.9 % Normal 0-5 [facility] Comment on above: Performed By: #### L 100.0100, L501.5425, L500.4050 ####[facility] [address] [place], [address] Erythrocyte distribution width (RBC) [Ratio] 14.8 % High 11.6-14.6 [facility] Comment on above: Performed By: #### L 100.0100, L501.5425, L500.4050 ####[facility] [address] [place], [address] Hematocrit (Bld) [Volume fraction] 38.4 % Low 40-54 [facility] Comment on above: Performed By: #### L 100.0100, L501.5425, L500.4050 ####[facility] [address] [place], [address] Hemoglobin (Bld) [Mass/Vol] 13.5 g/dL Normal 13.0-16.5 [facility] Comment on above: Performed By: #### L 100.0100, L501.5425, L500.4050 ####[facility] [address] [place], [address] IG% 0.400 Normal 0.0-0.9 [facility] Comment on above: Result Comment: IG% - Immature Granulocytes (promyelocytes, myelocytes andmetamyelocytes) > 1% indicates that a LEFT SHIFT is Present. Performed By: #### L 100.0100, L501.5425, L500.4050 ####[facility] [address] [place], [address] Lymphocytes/100 WBC (Bld) 7.4 % Low 19-41 [facility] Comment on above: Performed By: #### L 100.0100, L501.5425, L500.4050 ####[facility] [address] [place], [address] MCH (RBC) [Entitic mass] 34.5 pg High 27.0-32.0 [facility] Comment on above: Performed By: #### L 100.0100, L501.5425, L500.4050 ####[facility] [address] [place], [address] MCHC (RBC) [Mass/Vol] 35.2 g/dL Normal 32-[address] [facility] Comment on above: Performed By: #### L 100.0100, L501.5425, L500.4050 ####[facility] [address] [place], [address] MCV (RBC) [Entitic vol] 98.2 fL High 80-94 [facility] Comment on above: Performed By: #### L 100.0100, L501.5425, L500.4050 ####[facility] [address] [place], [address] Monocytes/100 WBC (Bld) 7.4 % Normal 0-10 [facility] Comment on above: Performed By: #### L 100.0100, L501.5425, L500.4050 ####[facility] [address] [place], [address] Neutrophils/100 WBC (Bld) 83.2 % High 47-70 [facility] Comment on above: Performed By: #### L 100.0100, L501.5425, L500.4050 ####[facility] [address] [place], [address] Nucleated RBC (Bld) [#/Vol] 0 10*3/uL Normal 0-5 [facility] Comment on above: Performed By: #### L 100.0100, L501.5425, L500.4050 ####[facility] [address] [place], [address] Platelet mean volume (Bld) [Entitic vol] 9.3 fL Normal 6.2-12.0 [facility] Comment on above: Performed By: #### L 100.0100, L501.5425, L500.4050 ####[facility] [address] [place], [address] Platelets (Bld) [#/Vol] 325 10*3/uL Normal 150-450 [facility] Comment on above: Performed By: #### L 100.0100, L501.5425, L500.4050 ####[facility] [address] [place], [address] RBC (Bld) [#/Vol] 3.91 10*6/uL Low 4.6-6.2 [facility] Comment on above: Performed By: #### L 100.0100, L501.5425, L500.4050 ####[facility] [address] [place], [address] RDW SD 53.6 fl High 35.1-43.9 [facility] Comment on above: Performed By: #### L 100.0100, L501.5425, L500.4050 ####[facility] [address] [place], [address] WBC (Bld) [#/Vol] 10.6 10*3/uL Normal 4.4-11.0 [facility] Comment on above: Performed By: #### L 100.0100, L501.5425, L500.4050 ####[facility] [address] [place], [address] Calcium [Mass/Vol]Ordered By : Xavi Almonte on 04-11-2024 Serum or plasma calcium measurement (mass/volume) 9.4 mg/dL 8.5-10.1 [facility] Carbon dioxide measurementOr dered By: Xavimonisha Almonte on 04-11-2024 Carbon dioxide measurement 27.0 mmol/L 21.0-32.0 [facility] Chest PA and Lateralon 04-11 Chest PA and Lateral Normal [facility] Chloride measurementOrdered By: Xavi Almonte on 04-11-2024 Chloride measurement 107 mmol/L 98-107 [facility] Comprehensive Metabolic Prof ilon 04-11-2024 Albumin [Mass/Vol] 3.3 g/dL Normal 3.2-5.0 [facility] Comment on above: Order Comment: 1Y Performed By: #### L 100.0100, L501.5425, L500.4050 ####[facility] [address] [place], [address] Albumin/Globulin [Mass ratio] 1.2 {ratio} Normal 0.9-2.4 [facility] Comment on above: Order Comment: 1Y Performed By: #### L 100.0100, L501.5425, L500.4050 ####[facility] [address] [place], [address] ALK P 73 U/L Normal 45-117 [facility] Comment on above: Order Comment: 1Y Performed By: #### L 100.0100, L501.5425, L500.4050 ####[facility] [address] [place], [address] ALT [Catalytic activity/Vol] 13 U/L Low 16-61 [facility] Comment on above: Order Comment: 1Y Performed By: #### L 100.0100, L501.5425, L500.4050 ####[facility] [address] [place], [address] AST [Catalytic activity/Vol] 17 U/L Normal 15-37 [facility] Comment on above: Order Comment: 1Y Performed By: #### L 100.0100, L501.5425, L500.4050 ####[facility] [address] [place], [address] Bilirubin [Mass/Vol] 1.00 mg/dL Normal 0.20-1.00 [facility] Comment on above: Order Comment: 1Y Result Comment: For patients on eltrombopag therapy, use of Dimension [place] TBIL is not recommended. Performed By: #### L 100.0100, L501.5425, L500.4050 ####[facility] [address] [place], [address] BUN/CRE 20.7 RATIO High 10-20 [facility] Comment on above: Order Comment: 1Y Performed By: #### L 100.0100, L501.5425, L500.4050 ####[facility] [address] [place], [address] CA,Total 9.4 mg/dL Normal 8.5-10.1 [facility] Comment on above: Order Comment: 1Y Performed By: #### L 100.0100, L501.5425, L500.4050 ####[facility] [address] [place], [address] Chloride [Moles/Vol] 107 mmol/L Normal 98-107 [facility] Comment on above: Order Comment: 1Y Performed By: #### L 100.0100, L501.5425, L500.4050 ####[facility] [address] [place], [address] CO2 [Moles/Vol] 27.0 mmol/L Normal 21.0-32.0 [facility] Comment on above: Order Comment: 1Y Performed By: #### L 100.0100, L501.5425, L500.4050 ####[facility] [address] [place], [address] Creatinine [Mass/Vol] 1.64 mg/dL High 0.70-1.[address] [facility] Comment on above: Order Comment: 1Y Result Comment: The validity of the calculated GFR GFRAA in patients over70 years has not been determined. Clinical correlation isessential. Performed By: #### L 100.0100, L501.5425, L500.4050 ####[facility] [address] [place], [address] ECRCL 32.41 ml/min Normal [facility] Comment on above: Order Comment: 1Y Performed By: #### L 100.0100, L501.5425, L500.4050 ####[facility] [address] [place], [address] EST GFR - AA 52 mL/min Low >60 [facility] Comment on above: Order Comment: 1Y Result Comment: Afri can Jordanian GFR Calc Performed By: #### L 100.0100, L501.5425, L500.4050 ####[facility] [address] [place], [address] GAP 8 Normal 5-15 [facility] Comment on above: Order Comment: 1Y Performed By: #### L 100.0100, L501.5425, L500.4050 ####[facility] [address] [place], [address] GFR/1.73 sq M.predicted among non-blacks MDRD (S/P/Bld) [Vol rate/Area] 43 mL/min/{1.73_m2} Low >60 [facility] Comment on above: Order Comment: 1Y Result Comment: Non- GFR Calc Performed By: #### L 100.0100, L501.5425, L500.4050 ####[facility] [address] [place], [address] Globulin (S) [Mass/Vol] 2.8 g/dL Normal 2.2-4.2 [facility] Comment on above: Order Comment: 1Y Performed By: #### L 100.0100, L501.5425, L500.4050 ####[facility] [address] [place], [address] Glucose [Mass/Vol] 104 mg/dL Normal 74-106 [facility] Comment on above: Order Comment: 1Y Result Comment: Fast ing Glucose result from 100 to 125 mg/dLsuggests IMPAIRED HOMEOSTASIS per A.D.A. criteria. Performed By: #### L 100.0100, L501.5425, L500.4050 ####[facility] [address] [place], [address] Potassium [Moles/Vol] 2.9 mmol/L Low 3.5-5.[address] [facility] Comment on above: Order Comment: 1Y Performed By: #### L 100.0100, L501.5425, L500.4050 ####[facility] [address] [place], [address] Sodium [Moles/Vol] 141 mmol/L Normal 136-145 [facility] Comment on above: Order Comment: 1Y Performed By: #### L 100.0100, L501.5425, L500.4050 ####[facility] [address] [place], [address] T PROT 6.1 g/dL Low 6.4-8.2 [facility] Comment on above: Order Comment: 1Y Performed By: #### L 100.0100, L501.5425, L500.4050 ####[facility] [address] [place], [address] Urea nitrogen [Mass/Vol] 34 mg/dL High 7-18 [facility] Comment on above: Order Comment: 1Y Performed By: #### L 100.0100, L501.5425, L500.4050 ####[facility] [address] [place], [address] Creatinine [Mass/Vol]Ordered By: Xavi Almonte on 04-11-2024 Serum or plasma creatinine measurement (mass/volume) 1.64 mg/dL High 0.70-1.30 [facility] Emergency Department Summary on 04-11-2024 Emergency Department Summary Normal [facility] Eosinophil percentageOrdered By: Xavimonisha Almonte on 04-11-2024 Eosinophil percentage 0.9 % 0-[address] [facility] Erythrocyte distribution wid th (RBC) [Ratio]Ordered By: Xavimonisha Almonte on 04-11-2024 Erythrocyte distribution width ratio 14.8 % High 11.6-14.6 [facility] Erythrocyte distribution wid th standard deviationOrdered By: Xavimonisha Almonte on 04-11-2024 Erythrocyte distribution width standard deviation 53.6 fl High 35.1-43.9 [facility] Estimated glomerular filtrat ion rate (GFR) AmericanOrdered By: Xavi Almonte on 04-11-2024 Estimated glomerular filtration rate (GFR) 52 mL/min Low >60 [facility] Estimation of creatinine terry aranceOrdered By: Xavimonisha Almonte on 04-11-2024 Estimation of creatinine clearance 32.41 ml/min [facility] Glomerular filtration rate ( GFR) estimationOrdered By: Xavi Almonte on 04-11-2024 Glomerular filtration rate (GFR) estimation 43 mL/min Low >60 [facility] Glucose measurementOrdered B y: Xavi Almonte on 04-11-2024 Glucose measurement 104 mg/dL 74-106 [facility] Hematocrit Auto (Bld) [Volum e fraction]Ordered By: Xavi Almonte on 04-11-2024 Automated blood hematocrit (percentage) 38.4 % Low 40-54 [facility] Hemoglobin measurementOrdere d By: Xavi Almonte on 04-11-2024 Hemoglobin measurement 13.5 g/dL 13.0-16.5 [facility] Immature granulocytes/100 WB C Auto (Bld)Ordered By: Xavimonisha Almonte on 04-11-2024 Automated immature granulocyte percentage 0.400 % 0.0-0.9 [facility] L501.4020on 04-11-2024 TROPONIN-I HS 11 pg/mL Normal 3.0-78.0 [facility] Comment on above: Result Comment: Plea Note: New Test Units and Gender Specific Reference Ranges. For more information see Policy Stat Procedure [place] High Sensitivity Troponin (TNIH) and attachments. Performed By: #### L 501.4020 ####[facility] [address] [place], [address] L501.5425on 04-11-2024 TROPONIN-I HS 11 pg/mL Normal 3.0-78.0 [facility] Comment on above: Order Comment: 1Y Result Comment: José cuellar Note: New Test Units and Gender Specific Reference Ranges. For more information see Policy Stat Procedure [place] High Sensitivity Troponin (TNIH) and attachments. Performed By: #### L 100.0100, L501.5425, L500.4050 ####[facility] [address] [place], [address] Lymphocytes Auto (Unsp spec) [#/Vol]Ordered By: Xavi Almonte on 04-11-2024 Absolute lymphocyte count 0.79 X10^3/uL Low 0.83-4.51 [facility] MCV (RBC) [Entitic vol]Order ed By: Xavi Almonte on 04-11-2024 MCV (mean corpuscular volume) determination 98.2 fL High 80-94 [facility] Mean corpuscular hemoglobin (MCH) determinationOrdered By: Xavi Almonte on 04-11-2024 Mean corpuscular hemoglobin (MCH) determination 34.5 pg High 27.0-32.0 [facility] Mean corpuscular hemoglobin concentration (MCHC) determinationOrdered By: Xavi Almonte on 04-11-2024 Mean corpuscular hemoglobin concentration (MCHC) determination 35.2 g/dL 32-36 [facility] Mean platelet volume determi nationOrdered By: Xavimonisha Almonte on 04-11-2024 Mean platelet volume determination 9.3 fl 6.2-12.0 [facility] Neutrophil percentageOrdered By: Xavi Almonte on 04-11-2024 Neutrophil percentage 83.2 % High 47-[address] [facility] No Panel InformationOrdered By: Xavi Almonte on 04-11-2024 17 U/L 15-37 [facility] Nucleated red blood cell per centageOrdered By: Xavi Almonte on 04-11-2024 Nucleated red blood cell percentage 0 % 0-5 [facility] Platelet countOrdered By: Ug o Almonte on 04-11-2024 Platelet count 325 K/mm3 150-450 [facility] Potassium measurementOrdered By: Xavi Almonte on 04-11-2024 Potassium measurement 2.9 mmol/L Low 3.5-5.[address] [facility] RBC Auto (Bld) [#/Vol]Ordere d By: Xavi Almonte on 04-11-2024 Automated blood erythrocyte count 3.91 M/mm3 Low 4.6-6.2 [facility] Serum anion gap measurementO rdered By: Xavi Almonte on 04-11-2024 Serum anion gap measurement 8 5-15 [facility] Serum globulin measurementOr dered By: Xavi Almonte on 04-11-2024 Serum globulin measurement 2.8 g/dL 2.2-4.2 [facility] Sodium levelOrdered By: Xavi Almonte on 04-11-2024 Sodium level 141 mmol/L 136-145 [facility] Total proteinOrdered By: Xavi Almonte on 04-11-2024 Total protein 6.1 g/dL Low 6.4-8.2 [facility] Troponin IOrdered By: Xavi Ga llo on 04-11-2024 Troponin I 11 pg/mL 3.0-78.0 [facility] Urea nitrogen [Mass/Vol]Orde red By: Xavi Almonte on 04-11-2024 Serum or plasma urea nitrogen measurement (mass/volume) 34 mg/dL High 7-18 [facility] White blood cell (WBC) count Ordered By: Xavi Almonte on 04-11-2024 White blood cell (WBC) count 10.6 K/mm3 4.4-11.0 [facility] Absolute neutrophil countOrd ered By: Nanette Macdonald on 03-23-2024 Absolute neutrophil count 6.7 X10^3/uL 2.0-7.7 [facility] Basophil percentageOrdered B y: Nanette Macdonald on 03-23-2024 Basophil percentage 0.8 % 0-1 [facility] CBC W/Diff, Automatedon 03-04 Absolute Lymph 1.28 X10 3/uL Normal 0.83-4.51 [facility] Comment on above: Performed By: #### L 100.0100 ####[facility] [address] [place], [address] Absolute Neut 6.7 X10 3/uL Normal 2.0-7.7 [facility] Comment on above: Performed By: #### L 100.0100 ####[facility] [address] [place], [address] Basophils/100 WBC (Bld) 0.8 % Normal 0-1 [facility] Comment on above: Performed By: #### L 100.0100 ####[facility] [address] [place], [address] Eosinophils/100 WBC (Bld) 1.3 % Normal 0-5 [facility] Comment on above: Performed By: #### L 100.0100 ####[facility] [address] [place], [address] Erythrocyte distribution width (RBC) [Ratio] 14.6 % Normal 11.6-14.6 [facility] Comment on above: Performed By: #### L 100.0100 ####[facility] [address] [place], [address] Hematocrit (Bld) [Volume fraction] 41.0 % Normal 40-54 [facility] Comment on above: Performed By: #### L 100.0100 ####[facility] [address] [place], [address] Hemoglobin (Bld) [Mass/Vol] 13.8 g/dL Normal 13.0-16.5 [facility] Comment on above: Performed By: #### L 100.0100 ####[facility] [address] [place], [address] IG% 0.300 Normal 0.0-0.9 [facility] Comment on above: Result Comment: IG% - Immature Granulocytes (promyelocytes, myelocytes andmetamyelocytes) > 1% indicates that a LEFT SHIFT is Present. Performed By: #### L 100.0100 ####[facility] [address] [place], [address] Lymphocytes/100 WBC (Bld) 14.3 % Low 19-41 [facility] Comment on above: Performed By: #### L 100.0100 ####[facility] [address] [place], [address] MCH (RBC) [Entitic mass] 33.3 pg High 27.0-32.0 [facility] Comment on above: Performed By: #### L 100.0100 ####[facility] [address] [place], [address] MCHC (RBC) [Mass/Vol] 33.7 g/dL Normal 32-[address] [facility] Comment on above: Performed By: #### L 100.0100 ####[facility] [address] [place], [address] MCV (RBC) [Entitic vol] 99.0 fL High 80-94 [facility] Comment on above: Performed By: #### L 100.0100 ####[facility] [address] [place], [address] Monocytes/100 WBC (Bld) 8.4 % Normal 0-10 [facility] Comment on above: Performed By: #### L 100.0100 ####[facility] [address] [place], [address] Neutrophils/100 WBC (Bld) 74.9 % High 47-70 [facility] Comment on above: Performed By: #### L 100.0100 ####[facility] [address] [place], [address] Nucleated RBC (Bld) [#/Vol] 0 10*3/uL Normal 0-5 [facility] Comment on above: Performed By: #### L 100.0100 ####[facility] [address] [place], [address] Platelet mean volume (Bld) [Entitic vol] 10.0 fL Normal 6.2-12.0 [facility] Comment on above: Performed By: #### L 100.0100 ####[facility] [address] [place], [address] Platelets (Bld) [#/Vol] 401 10*3/uL Normal 150-450 [facility] Comment on above: Performed By: #### L 100.0100 ####[facility] [address] [place], [address] RBC (Bld) [#/Vol] 4.14 10*6/uL Low 4.6-6.2 [facility] Comment on above: Performed By: #### L 100.0100 ####[facility] [address] [place], [address] RDW SD 53.2 fl High 35.1-43.9 [facility] Comment on above: Performed By: #### L 100.0100 ####[facility] [address] [place], [address] WBC (Bld) [#/Vol] 8.9 10*3/uL Normal 4.4-11.0 [facility] Comment on above: Performed By: #### L 100.0100 ####[facility] [address] [place], [address] Eosinophil percentageOrdered By: Nanette Macdonald on 03-23-2024 Eosinophil percentage 1.3 % 0-[address] [facility] Erythrocyte distribution wid th (RBC) [Entitic vol]Ordered By: Nanette Macdonald on 03-23-2024 Erythrocyte distribution width standard deviation 53.2 fl High 35.1-43.9 [facility] Erythrocyte distribution wid th (RBC) [Ratio]Ordered By: Nanette Macdonald on 03-23-2024 Erythrocyte distribution width ratio 14.6 % 11.6-14.6 [facility] Hematocrit Auto (Bld) [Volum e fraction]Ordered By: Nanette Macdonald on 03-23-2024 Automated blood hematocrit (percentage) 41.0 % 40-54 [facility] Hemoglobin measurementOrdere d By: Nanette Macdonald on 03-23-2024 Hemoglobin measurement 13.8 g/dL 13.0-16.5 [facility] Immature granulocytes/100 WB C Auto (Bld)Ordered By: Nanette Macdonald on 03-23-2024 Automated immature granulocyte percentage 0.300 % 0.0-0.9 [facility] Lymphocytes Auto (Unsp spec) [#/Vol]Ordered By: Nanette Macdonald on 03-23-2024 Absolute lymphocyte count 1.28 X10^3/uL 0.83-4.51 [facility] Lymphocytes/100 WBC Auto (Un sp spec)Ordered By: Nanette Macdonald on 03-23-2024 Automated lymphocyte count as percentage of total leukocytes 14.3 % Low 19-41 [facility] MCV (RBC) [Entitic vol]Order ed By: Nanette Macdonald on 03-23-2024 MCV (mean corpuscular volume) determination 99.0 fL High 80-94 [facility] Mean corpuscular hemoglobin (MCH) determinationOrdered By: Nanette Macdonald on 03-23-2024 Mean corpuscular hemoglobin (MCH) determination 33.3 pg High 27.0-32.0 [facility] Mean corpuscular hemoglobin concentration (MCHC) determinationOrdered By: Nanette Macdonald on 03-23-2024 Mean corpuscular hemoglobin concentration (MCHC) determination 33.7 g/dL 32-36 [facility] Mean platelet volume determi nationOrdered By: Nanette Macdonald on 03-23-2024 Mean platelet volume determination 10.0 fl 6.2-12.0 [facility] Monocyte percentageOrdered B y: Nanette Macdonald on 03-23-2024 Monocyte percentage 8.4 % 0-10 [facility] Neutrophil percentageOrdered By: Nanette Macdonald on 03-23-2024 Neutrophil percentage 74.9 % High 47-[address] [facility] Nucleated red blood cell per centageOrdered By: Nanette Macdonald on 03-23-2024 Nucleated red blood cell percentage 0 % 0-5 [facility] Platelet countOrdered By: Serjio Macdonald on 03-23-2024 Platelet count 401 K/mm3 150-450 [facility] RBC Auto (Bld) [#/Vol]Ordere d By: Nanette Macdonald on 03-23-2024 Automated blood erythrocyte count 4.14 M/mm3 Low 4.6-6.2 [facility] White blood cell (WBC) count Ordered By: Nanette Macdonald on 03-23-2024 White blood cell (WBC) count 8.9 K/mm3 4.4-11.0 [facility] Gastroenterology Visit Repor ton 03-21-2024 Gastroenterology Visit Report Normal [facility] PSA,Total- Diagnosticon - PSA, DIAGNOSTIC < 0.01 Normal 0.0-4.0 [facility] Comment on above: Result Comment: This test was performed using the TPSA assay method for theEnvie de Fraisesmension chemistry system. Values obtained with differentassay methods cannot be used interchangably.When changing PSA assays in the course of monitoring apatient, additional sequential testing should be carriedout to confirm baseline values. Performed By: #### L 501.9940 ####[facility] [address] [place], [place], [address] Pulmonary Visit Reporton Pulmonary Visit Report Normal [facility] PSA,Total- Diagnosticon 10-31 PSA, DIAGNOSTIC < 0.01 Normal 0.0-4.0 [facility] Comment on above: Result Comment: This test was performed using the TPSA assay method for theDimension chemistry system. Values obtained with differentassay methods cannot be used interchangably.When changing PSA assays in the course of monitoring apatient, additional sequential testing should be carriedout to confirm baseline values. Performed By: #### L 501.9940 ####[facility] [address] [place], [address] Basic Metabolic Profile (BMP )on 10-28-2023 BUN/CRE 16.9 RATIO Normal 10-20 [facility] Comment on above: Performed By: #### L 500.2500 ####[facility] [address] [place], [address] CA,Total 9.3 mg/dL Normal 8.5-10.1 [facility] Comment on above: Performed By: #### L 500.2500 ####[facility] [address] [place], [address] Chloride [Moles/Vol] 103 mmol/L Normal 98-107 [facility] Comment on above: Performed By: #### L 500.2500 ####[facility] [address] [place], [address] CO2 [Moles/Vol] 27.0 mmol/L Normal 21.0-32.0 [facility] Comment on above: Performed By: #### L 500.2500 ####[facility] [address] [place], [address] Creatinine [Mass/Vol] 1.78 mg/dL High 0.70-1.[address] [facility] Comment on above: Result Comment: The validity of the calculated GFR GFRAA in patients over70 years has not been determined. Clinical correlation isessential. Performed By: #### L 500.2500 ####[facility] [address] [place], [address] EST GFR - AA 48 mL/min Low >60 [facility] Comment on above: Result Comment: Afri can Jordanian GFR Calc Performed By: #### L 500.2500 ####[facility] [address] [place], [address] GAP 9 Normal 5-15 [facility] Comment on above: Performed By: #### L 500.2500 ####[facility] [address] [place], [address] GFR/1.73 sq M.predicted among non-blacks MDRD (S/P/Bld) [Vol rate/Area] 39 mL/min/{1.73_m2} Low >60 [facility] Comment on above: Result Comment: Non- GFR Calc Performed By: #### L 500.2500 ####[facility] [address] [place], [address] Glucose [Mass/Vol] 103 mg/dL Normal 74-106 [facility] Comment on above: Result Comment: Fast ing Glucose result from 100 to 125 mg/dLsuggests IMPAIRED HOMEOSTASIS per A.D.A. criteria. Performed By: #### L 500.2500 ####[facility] [address] [place], [address] Potassium [Moles/Vol] 3.2 mmol/L Low 3.5-5.[address] [facility] Comment on above: Performed By: #### L 500.2500 ####[facility] [address] [place], [address] Sodium [Moles/Vol] 139 mmol/L Normal 136-145 [facility] Comment on above: Performed By: #### L 500.2500 ####[facility] [address] [place], [address] Urea nitrogen [Mass/Vol] 30 mg/dL High 7-18 [facility] Comment on above: Performed By: #### L 500.2500 ####[facility] [address] [place], [address] Office Visit Reporton 2023 Office Visit Report Normal [facility] CBC W/Diff, Automatedon 10-01 Absolute Lymph 1.00 X10 3/uL Normal 0.83-4.51 [facility] Comment on above: Performed By: #### L 500.4050, L500.4100, L100.0100 ####[facility] [address] [place], [address] Absolute Neut 5.9 X10 3/uL Normal 2.0-7.7 [facility] Comment on above: Performed By: #### L 500.4050, L500.4100, L100.0100 ####[facility] [address] [place], [address] Basophils/100 WBC (Bld) 0.9 % Normal 0-1 [facility] Comment on above: Performed By: #### L 500.4050, L500.4100, L100.0100 ####[facility] [address] [place], [address] Eosinophils/100 WBC (Bld) 6.1 % High 0-5 [facility] Comment on above: Performed By: #### L 500.4050, L500.4100, L100.0100 ####[facility] [address] [place], [address] Erythrocyte distribution width (RBC) [Ratio] 12.7 % Normal 11.6-14.6 [facility] Comment on above: Performed By: #### L 500.4050, L500.4100, L100.0100 ####[facility] [address] [place], [address] Hematocrit (Bld) [Volume fraction] 41.6 % Normal 40-54 [facility] Comment on above: Performed By: #### L 500.4050, L500.4100, L100.0100 ####[facility] [address] [place], [address] Hemoglobin (Bld) [Mass/Vol] 13.8 g/dL Normal 13.0-16.5 [facility] Comment on above: Performed By: #### L 500.4050, L500.4100, L100.0100 ####[facility] [address] [place], [address] IG% 0.100 Normal 0.0-0.9 [facility] Comment on above: Result Comment: IG% - Immature Granulocytes (promyelocytes, myelocytes andmetamyelocytes) > 1% indicates that a LEFT SHIFT is Present. Performed By: #### L 500.4050, L500.4100, L100.0100 ####[facility] [address] [place], [address] Lymphocytes/100 WBC (Bld) 12.5 % Low 19-41 [facility] Comment on above: Performed By: #### L 500.4050, L500.4100, L100.0100 ####[facility] [address] [place], [address] MCH (RBC) [Entitic mass] 31.8 pg Normal 27.0-32.0 [facility] Comment on above: Performed By: #### L 500.4050, L500.4100, L100.0100 ####[facility] [address] [place], [address] MCHC (RBC) [Mass/Vol] 33.2 g/dL Normal 32-[address] [facility] Comment on above: Performed By: #### L 500.4050, L500.4100, L100.0100 ####[facility] [address] [place], [address] MCV (RBC) [Entitic vol] 95.9 fL High 80-94 [facility] Comment on above: Performed By: #### L 500.4050, L500.4100, L100.0100 ####[facility] [address] [place], [address] Monocytes/100 WBC (Bld) 7.0 % Normal 0-10 [facility] Comment on above: Performed By: #### L 500.4050, L500.4100, L100.0100 ####[facility] [address] [place], [address] Neutrophils/100 WBC (Bld) 73.4 % High 47-70 [facility] Comment on above: Performed By: #### L 500.4050, L500.4100, L100.0100 ####[facility] [address] [place], [address] Nucleated RBC (Bld) [#/Vol] 0 10*3/uL Normal 0-5 [facility] Comment on above: Performed By: #### L 500.4050, L500.4100, L100.0100 ####[facility] [address] [place], [address] Platelet mean volume (Bld) [Entitic vol] 10.8 fL Normal 6.2-12.0 [facility] Comment on above: Performed By: #### L 500.4050, L500.4100, L100.0100 ####[facility] [address] [place], [address] Platelets (Bld) [#/Vol] 347 10*3/uL Normal 150-450 [facility] Comment on above: Performed By: #### L 500.4050, L500.4100, L100.0100 ####[facility] [address] [place], [address] RBC (Bld) [#/Vol] 4.34 10*6/uL Low 4.6-6.2 [facility] Comment on above: Performed By: #### L 500.4050, L500.4100, L100.0100 ####[facility] [address] [place], [address] RDW SD 45.1 fl High 35.1-43.9 [facility] Comment on above: Performed By: #### L 500.4050, L500.4100, L100.0100 ####[facility] [address] [place], [address] WBC (Bld) [#/Vol] 8.0 10*3/uL Normal 4.4-11.0 [facility] Comment on above: Performed By: #### L 500.4050, L500.4100, L100.0100 ####[facility] [address] [place], [address] Comprehensive Metabolic Prof ilon 10-20-2023 Albumin [Mass/Vol] 4.0 g/dL Normal 3.2-5.0 [facility] Comment on above: Performed By: #### L 500.4050, L500.4100, L100.0100 ####[facility] [address] [place], [address] Albumin/Globulin [Mass ratio] 1.4 {ratio} Normal 0.9-2.4 [facility] Comment on above: Performed By: #### L 500.4050, L500.4100, L100.0100 ####[facility] [address] [place], [address] ALK P 94 U/L Normal 45-117 [facility] Comment on above: Performed By: #### L 500.4050, L500.4100, L100.0100 ####[facility] [address] [place], [address] ALT [Catalytic activity/Vol] 15 U/L Low 16-61 [facility] Comment on above: Performed By: #### L 500.4050, L500.4100, L100.0100 ####[facility] [address] [place], [address] AST [Catalytic activity/Vol] 19 U/L Normal 15-37 [facility] Comment on above: Performed By: #### L 500.4050, L500.4100, L100.0100 ####[facility] [address] [place], [address] Bilirubin [Mass/Vol] 0.80 mg/dL Normal 0.20-1.00 [facility] Comment on above: Result Comment: For patients on eltrombopag therapy, use of Dimension [place] TBIL is not recommended. Performed By: #### L 500.4050, L500.4100, L100.0100 ####[facility] [address] [place], [address] BUN/CRE 15.5 RATIO Normal 10-20 [facility] Comment on above: Performed By: #### L 500.4050, L500.4100, L100.0100 ####[facility] [address] [place], [address] CA,Total 10.0 mg/dL Normal 8.5-10.1 [facility] Comment on above: Performed By: #### L 500.4050, L500.4100, L100.0100 ####[facility] [address] [place], [address] Chloride [Moles/Vol] 102 mmol/L Normal 98-107 [facility] Comment on above: Performed By: #### L 500.4050, L500.4100, L100.0100 ####[facility] [address] [place], [address] CO2 [Moles/Vol] 28.0 mmol/L Normal 21.0-32.0 [facility] Comment on above: Performed By: #### L 500.4050, L500.4100, L100.0100 ####[facility] [address] [place], [address] Creatinine [Mass/Vol] 1.48 mg/dL High 0.70-1.[address] [facility] Comment on above: Result Comment: The validity of the calculated GFR GFRAA in patients over70 years has not been determined. Clinical correlation isessential. Performed By: #### L 500.4050, L500.4100, L100.0100 ####[facility] [address] [place], [address] EST GFR - AA 59 mL/min Low >60 [facility] Comment on above: Result Comment: Afri can Jordanian GFR Calc Performed By: #### L 500.4050, L500.4100, L100.0100 ####[facility] [address] [place], [address] GAP 8 Normal 5-15 [facility] Comment on above: Performed By: #### L 500.4050, L500.4100, L100.0100 ####[facility] [address] [place], [address] GFR/1.73 sq M.predicted among non-blacks MDRD (S/P/Bld) [Vol rate/Area] 49 mL/min/{1.73_m2} Low >60 [facility] Comment on above: Result Comment: Non- GFR Calc Performed By: #### L 500.4050, L500.4100, L100.0100 ####[facility] [address] [place], [address] Globulin (S) [Mass/Vol] 2.9 g/dL Normal 2.2-4.2 [facility] Comment on above: Performed By: #### L 500.4050, L500.4100, L100.0100 ####[facility] [address] [place], [address] Glucose [Mass/Vol] 95 mg/dL Normal 74-106 [facility] Comment on above: Performed By: #### L 500.4050, L500.4100, L100.0100 ####[facility] [address] [place], [address] Potassium [Moles/Vol] 3.2 mmol/L Low 3.5-5.[address] [facility] Comment on above: Performed By: #### L 500.4050, L500.4100, L100.0100 ####[facility] [address] [place], [address] Sodium [Moles/Vol] 138 mmol/L Normal 136-145 [facility] Comment on above: Performed By: #### L 500.4050, L500.4100, L100.0100 ####[facility] [address] [place], [address] T PROT 6.9 g/dL Normal 6.4-8.2 [facility] Comment on above: Performed By: #### L 500.4050, L500.4100, L100.0100 ####[facility] [address] [place], [address] Urea nitrogen [Mass/Vol] 23 mg/dL High 7-18 [facility] Comment on above: Performed By: #### L 500.4050, L500.4100, L100.0100 ####[facility] [address] [place], [address] Internal Medicine Office Vis iton 10-20-2023 Internal Medicine Office Visit Normal [facility] Lipid Profileon 10-20-2023 Cholesterol [Mass/Vol] 194 mg/dL Normal 200 [facility] Comment on above: Result Comment: <200 mg/dL Desirable 200-240 mg/dL Borderline >240 mg/dL High Risk Performed By: #### L 500.4050, L500.4100, L100.0100 ####[facility] [address] [place], [address] Cholesterol in HDL [Mass/Vol] 80 mg/dL Normal [facility] Comment on above: Result Comment: The drugs N-Acetylcysteine and Metamizole may falselydepress this assay. Reference Range HDL <40 mg/dL Low HDL Cholesterol HDL >or= 60 mg/dL High HDL Cholesterol Performed By: #### L 500.4050, L500.4100, L100.0100 ####[facility] [address] [place], [address] Cholesterol in LDL [Mass/Vol] 91 mg/dL Normal 0-130 [facility] Comment on above: Performed By: #### L 500.4050, L500.4100, L100.0100 ####[facility] [address] [place], [address] Cholesterol in VLDL [Mass/Vol] 23 mg/dL Normal 5-40 [facility] Comment on above: Performed By: #### L 500.4050, L500.4100, L100.0100 ####[facility] [address] [place], [address] Triglyceride [Mass/Vol] 116 mg/dL Normal [facility] Comment on above: Result Comment: The drugs N-Acetylcysteine and Metamizole may falselydepress this assay.Serum Triglycerides Reference Interval Normal <150 mg/dL Borderline high 150 - 199 mg/dL High 200 - 499 mg/dL Very High > or = 500 mg/dL Performed By: #### L 500.4050, L500.4100, L100.0100 ####[facility] [address] [place], [address] Basophil percentageOrdered B y: Aren Montaño on 08-10-2023 Basophil percentage < 0.01 ng/mL 0.0-4.[address] [facility] Comment on above: This test was perfor med using the TPSA assay method [facility]. Values obtained with differentassay methods cannot be used interchangably.When changing PSA assays in the course of monitoring apatient, additional sequential testing should be carriedout to confirm baseline values. Basophil percentageOrdered B y: Amy Morris on 04-21-2023 Chloride [Moles/Vol] 103 mmol/L 98-107 [facility] Glucose [Mass/Vol] 133 mg/dL 74-106 [facility] Comment on above: Fasting Glucose resu lt greater than or equal to 126 mg/dL suggests DIABETES MELLITUS per A.D.A. criteria. Potassium [Moles/Vol] 3.5 mmol/L 3.5-5.[address] [facility] Sodium [Moles/Vol] 139 mmol/L 136-145 [facility] Laboratory - Chemistry and C hemistry - challengeOrdered By: Amy Morris on 04-21-2023 CO2 [Moles/Vol] 31.0 mmol/L 21.0-32.0 [facility] Urea nitrogen/Creatinine [Mass ratio] 9.2 mg/mg 10 [facility] No Panel InformationOrdered By: Amy Morris on 04-21-2023 Estimated GFR (MDRD) Amer 49 mL/min >60 [facility] Comment on above: GFR Calc Estimated GFR (MDRD) Non-Af Amer 41 mL/min >60 [facility] Comment on above: Non- GFR Calc Serum or plasma calcium jenna urement (mass/volume)Ordered By: Amy Morris on 04-21-2023 Calcium [Mass/Vol] 10.0 mg/dL 8.5-10.1 [facility] Serum or plasma creatinine m easurement (mass/volume)Ordered By: Amy Morris on 04-21-2023 Creatinine [Mass/Vol] 1.73 mg/dL 0.70-1.[address] [facility] Comment on above: The validity of the calculated GFR & GFRAA in patients over 70 years has not been determined. Clinical correlation is essential. Serum or plasma urea nitroge n measurement (mass/volume)Ordered By: Amy Morris on 04-21-2023 Urea nitrogen [Mass/Vol] 16 mg/dL 7-18 [facility] Thin prep Papanicolaou smear with manual screeningOrdered By: Amy Morris on 04-21-2023 Thin prep Papanicolaou smear with manual screening 5 5-15 [facility] Basophil percentageOrdered B y: Amy Morris on 2023 Chloride [Moles/Vol] 108 mmol/L 98-107 [facility] Glucose [Mass/Vol] 116 mg/dL 74-106 [facility] Comment on above: Fasting Glucose resu lt from 100 to 125 mg/dL suggests IMPAIRED HOMEOSTASIS per A.D.A. criteria. Potassium [Moles/Vol] 3.7 mmol/L 3.5-5.[address] [facility] Sodium [Moles/Vol] 143 mmol/L 136-145 [facility] WBC (Bld) [#/Vol] 7.0 10*3/uL 4.4-11.0 [facility] Blood erythrocytes count (nu mber/volume)Ordered By: Amy Morris on 2023 RBC (Bld) [#/Vol] 4.56 10*6/uL 4.6-6.2 [facility] Blood hemoglobin measurement (mass/volume)Ordered By: Amy Morris on 2023 Hemoglobin (Bld) [Mass/Vol] 13.6 g/dL 13.0-16.5 [facility] Blood platelet mean volumeOr dered By: Amy Morris on 2023 Platelet mean volume (Bld) [Entitic vol] 10.7 fL 6.2-12.0 [facility] Determination of erythrocyte mean corpuscular volume (MCV)Ordered By: Amy Morris on 2023 MCV (RBC) [Entitic vol] 92.8 fL 80-94 [facility] Hematocrit Auto (Bld) [Volum e fraction]Ordered By: Amy Morris on 2023 Hematocrit (Bld) [Volume fraction] 42.3 % 40-54 [facility] Laboratory - Chemistry and C hemistry - challengeOrdered By: Amy Morris on 2023 CO2 [Moles/Vol] 28.0 mmol/L 21.0-32.0 [facility] Natriuretic peptide B (Bld) [Mass/Vol] 133.4 pg/mL 0-100 [facility] Urea nitrogen/Creatinine [Mass ratio] 12.1 mg/mg 10-20 [facility] - Hematology and Cell countsOrdered By: Amy Morris on 2023 Erythrocyte distribution width (RBC) [Entitic vol] 46.3 fL 35.1-43.9 [facility] Erythrocyte distribution width (RBC) [Ratio] 13.6 % 11.6-14.6 [facility] MCH (RBC) [Entitic mass] 29.8 pg 27.0-32.0 [facility] [Mass/Vol]Or dered By: Amy Morris on 2023 MCHC (RBC) [Mass/Vol] 32.2 g/dL 32-[address] [facility] No Panel InformationOrdered By: Amy Morirs on 2023 Estimated GFR (MDRD) Amer 59 mL/min >60 [facility] Comment on above: GFR Calc Estimated GFR (MDRD) Non-Af Amer 48 mL/min >60 [facility] Comment on above: Non- GFR Calc Platelets bldOrdered By: Mike Morris on 2023 Platelets (Bld) [#/Vol] 291 10*3/uL 150-450 [facility] Serum or plasma calcium jenna urement (mass/volume)Ordered By: Amy Morris on 2023 Calcium [Mass/Vol] 9.6 mg/dL 8.5-10.1 [facility] Serum or plasma creatinine m easurement (mass/volume)Ordered By: Amy Morris on 2023 Creatinine [Mass/Vol] 1.49 mg/dL 0.70-1.[address] [facility] Comment on above: The validity of the calculated GFR & GFRAA in patients over 70 years has not been determined. Clinical correlation is essential. Serum or plasma urea nitroge n measurement (mass/volume)Ordered By: Amy Morris on 2023 Urea nitrogen [Mass/Vol] 18 mg/dL 7-18 [facility] Thin prep Papanicolaou smear with manual screeningOrdered By: Amy Morris on 2023 Thin prep Papanicolaou smear with manual screening 7 -15 [facility] Basophil percentageOrdered B y: Marshall Briscoe on 02-11-2023 Creatinine [Mass/Vol] 1.6 mg/dL 0.70-1.[address] [facility] Laboratory - Chemistry and C hemistry - challengeOrdered By: Marshall Briscoe on 02-11-2023 GFR/1.73 sq M.predicted among non-blacks MDRD (S/P/Bld) [Vol rate/Area] 44.0000 mL/min/{1.73_m2} >60 [facility] Basophil percentageOrdered B y: [place] Maryan on 12-14-2022 Chloride [Moles/Vol] 105 mmol/L 98-107 [facility] Glucose [Mass/Vol] 115 mg/dL 74-106 [facility] Comment on above: Fasting Glucose resu lt from 100 to 125 mg/dL suggests IMPAIRED HOMEOSTASIS per A.D.A. criteria. Potassium [Moles/Vol] 3.6 mmol/L 3.5-5.[address] [facility] Sodium [Moles/Vol] 140 mmol/L 136-145 [facility] Laboratory - Chemistry and C hemistry - challengeOrdered By: Christiano Steinberg on 12-14-2022 CO2 [Moles/Vol] 28.0 mmol/L 21.0-32.0 [facility] Urea nitrogen/Creatinine [Mass ratio] 10.7 mg/mg 10-20 [facility] No Panel InformationOrdered By: Christiano Steinberg on 12-14-2022 Estimated GFR (MDRD) Amer 35 mL/min >60 [facility] Comment on above: GFR Calc Estimated GFR (MDRD) Non-Af Amer 29 mL/min >60 [facility] Comment on above: Non- GFR Calc Serum or plasma calcium jenna urement (mass/volume)Ordered By: Christiano Steinberg on 12-14-2022 Calcium [Mass/Vol] 10.3 mg/dL 8.5-10.1 [facility] Serum or plasma creatinine m easurement (mass/volume)Ordered By: Christiano Steinberg on 12-14-2022 Creatinine [Mass/Vol] 2.34 mg/dL 0.70-1.[address] [facility] Comment on above: The validity of the calculated GFR & GFRAA in patients over 70 years has not been determined. Clinical correlation is essential. Serum or plasma urea nitroge n measurement (mass/volume)Ordered By: Christiano Steinberg on 12-14-2022 Urea nitrogen [Mass/Vol] 25 mg/dL 11-17 [facility] Thin prep Papanicolaou smear with manual screeningOrdered By: Christiano Steinberg on 12-14-2022 Thin prep Papanicolaou smear with manual screening 7 - [facility] Absolute lymphocyte countOrd ered By: Joseph Manzano on 11-30-2022 Lymphocytes Auto (Unsp spec) [#/Vol] 1.39 10*3/uL 0.83-4.51 [facility] Basophil percentageOrdered B y: Joseph Manzano on 11-30-2022 Basophils/100 WBC (Bld) 0.8 % 0-1 [facility] Chloride [Moles/Vol] 108 mmol/L 98-107 [facility] Eosinophils/100 WBC (Bld) 8.0 % 0-5 [facility] Glucose [Mass/Vol] 100 mg/dL 74-106 [facility] Comment on above: Fasting Glucose resu lt from 100 to 125 mg/dL suggests IMPAIRED HOMEOSTASIS per A.D.A. criteria. Neutrophils (Bld) [#/Vol] 5.8 10*3/uL 2.0-7.7 [facility] Neutrophils/100 WBC (Bld) 68.1 % 47-70 [facility] Potassium [Moles/Vol] 3.3 mmol/L 3.5-5.[address] [facility] Sodium [Moles/Vol] 141 mmol/L 136-145 [facility] WBC (Bld) [#/Vol] 8.5 10*3/uL 4.4-11.0 [facility] Blood erythrocytes count (nu mber/volume)Ordered By: Joseph Manzano on 11-30-2022 RBC (Bld) [#/Vol] 4.71 10*6/uL 4.6-6.2 [facility] Blood hemoglobin measurement (mass/volume)Ordered By: Joseph Manzano on 11-30-2022 Hemoglobin (Bld) [Mass/Vol] 13.9 g/dL 13.0-16.5 [facility] Blood lymphocytes/100 leukoc ytesOrdered By: Joseph Manzano on 11-30-2022 Lymphocytes/100 WBC (Bld) 16.3 % 19-41 [facility] Blood monocytes/100 leukocyt esOrdered By: Joseph Manzano on 11-30-2022 Monocytes/100 WBC (Bld) 6.4 % 0-10 [facility] Blood platelet mean volumeOr dered By: Joseph Manzano on 11-30-2022 Platelet mean volume (Bld) [Entitic vol] 11.1 fL 6.2-12.0 [facility] Determination of erythrocyte mean corpuscular volume (MCV)Ordered By: Joseph Manzano on 11-30-2022 MCV (RBC) [Entitic vol] 90.0 fL 80-94 [facility] Hematocrit Auto (Bld) [Volum e fraction]Ordered By: Joseph Manzano on 11-30-2022 Hematocrit (Bld) [Volume fraction] 42.4 % 40-54 [facility] - Chemistry and C hemistry - challengeOrdered By: Joseph Manzano on 11-30-2022 CO2 [Moles/Vol] 25.0 mmol/L 21.0-32.0 [facility] Natriuretic peptide B (Bld) [Mass/Vol] 177.8 pg/mL 0-100 [facility] Urea nitrogen/Creatinine [Mass ratio] 11.4 mg/mg 10-20 [facility] - Hematology and Cell countsOrdered By: Joseph Manzano on 11-30-2022 Erythrocyte distribution width (RBC) [Entitic vol] 49.1 fL 35.1-43.9 [facility] Erythrocyte distribution width (RBC) [Ratio] 14.9 % 11.6-14.6 [facility] Immature granulocytes/100 WBC (Bld) 0.400 % 0.0-0.9 [facility] Comment on above: IG% - Immature Granu locytes (promyelocytes, myelocytes and metamyelocytes) > 1% indicates that a LEFT SHIFT is Present. MCH (RBC) [Entitic mass] 29.5 pg 27.0-32.0 [facility] Nucleated RBC/100 WBC (Bld) [Ratio] 0 % 0-5 [facility] MCHC Auto (RBC) [Mass/Vol]Or dered By: Joseph Manzano on 11-30-2022 MCHC (RBC) [Mass/Vol] 32.8 g/dL 32-[address] [facility] No Panel InformationOrdered By: Joseph Manzano on 11-30-2022 Troponin I High Sensitivity 17 pg/mL 3.0-78.0 [facility] Comment on above: Please Note: New Nayeli t Units and Gender Specific Reference Ranges. For more information see Policy Stat Procedure [place] High Sensitivity Troponin (TNIH) and attachments. Estimated Creatinine Clearance Calc 34.08 ml/min [facility] Estimated GFR (MDRD) Amer 51 mL/min >60 [facility] Comment on above: GFR Calc Estimated GFR (MDRD) Non-Af Amer 42 mL/min >60 [facility] Comment on above: Non- GFR Calc Platelets bldOrdered By: Kvng Manzano on 11-30-2022 Platelets (Bld) [#/Vol] 423 10*3/uL 150-450 [facility] Serum or plasma calcium jenna urement (mass/volume)Ordered By: Joseph Manzano on 11-30-2022 Calcium [Mass/Vol] 9.9 mg/dL 8.5-10.1 [facility] Serum or plasma creatinine m easurement (mass/volume)Ordered By: Joseph Manzano on 11-30-2022 Creatinine [Mass/Vol] 1.67 mg/dL 0.70-1.[address] [facility] Comment on above: The validity of the calculated GFR & GFRAA in patients over 70 years has not been determined. Clinical correlation is essential. Serum or plasma urea nitroge n measurement (mass/volume)Ordered By: Joseph Manzano on 11-30-2022 Urea nitrogen [Mass/Vol] 19 mg/dL 7-18 [facility] Thin prep Papanicolaou smear with manual screeningOrdered By: Joseph Manzano on 11-30-2022 Thin prep Papanicolaou smear with manual screening 8 5-15 [facility] Basophil percentageOrdered B y: Christiano Steinberg on 11-27-2022 Potassium [Moles/Vol] 3.7 mmol/L 3.5-5.[address] [facility] No Panel InformationOrdered By: Aren Montaño on 11-24-2022 Prostate Specific Antigen Total 0.05 ng/mL 0.0-4.0 [facility] Comment on above: This test was perfor med using the TPSA assay method [facility]. Values obtained with differentassay methods cannot be used interchangably.When changing PSA assays in the course of monitoring apatient, additional sequential testing should be carriedout to confirm baseline values. Basophil percentageOrdered B y: Bethel Gallegos on 11-16-2022 Basophil percentage 110 mg/dL 74-106 [facility] Basophil percentage 140 mmol/L 136-145 [facility] Basophil percentage 3.4 mmol/L 3.5-5.1 [facility] Basophil percentage 112 mmol/L 98-107 [facility] Chloride [Moles/Vol] 112 mmol/L 98-107 [facility] Glucose [Mass/Vol] 110 mg/dL 74-106 [facility] Comment on above: Fasting Glucose resu lt from 100 to 125 mg/dL suggests IMPAIRED HOMEOSTASIS per A.D.A. criteria. Potassium [Moles/Vol] 3.4 mmol/L 3.5-5.[address] [facility] Sodium [Moles/Vol] 140 mmol/L 136-145 [facility] Basophil percentageOrdered B y: Good Morse on 11-16-2022 Basophil percentage 3.1 mg/dL 2.5-4.9 [facility] - Chemistry and C hemistry - challengeOrdered By: Bethel Gallegos on 11-16-2022 CO2 [Moles/Vol] 23.0 mmol/L 21.0-32.0 [facility] Urea nitrogen/Creatinine [Mass ratio] 13.6 mg/mg 10- [facility] - CoagulationOrde red By: Bethel Gallegos on 11-16-2022 aPTT Coag (Bld) [Time] 35.8 s 24.1-36.2 [facility] No Panel InformationOrdered By: Bethel Gallegos on 11-16-2022 35.8 Seconds 24.1-36.2 [facility] Estimated Creatinine Clearance Calc 38.37 ml/min [facility] Estimated GFR (MDRD) Amer 60 mL/min >60 [facility] Comment on above: GFR Calc Estimated GFR (MDRD) Non-Af Amer 49 mL/min >60 [facility] Comment on above: Non- GFR Calc 49 mL/min >60 [facility] 60 mL/min >60 [facility] 38.37 ml/min [facility] 13.6 RATIO 10- [facility] 23.0 mmol/L 21.0-32.0 [facility] Serum or plasma albumin jenna urement (mass/volume)Ordered By: Good Morse on 11-16-2022 Albumin [Mass/Vol] 3.2 g/dL 3.2-5.0 [facility] Serum or plasma calcium jenna urement (mass/volume)Ordered By: Bethel Gallegos on 11-16-2022 Calcium [Mass/Vol] 9.5 mg/dL 8.5-10.1 [facility] Serum or plasma creatinine m easurement (mass/volume)Ordered By: Bethel Gallegos on 11-16-2022 Creatinine [Mass/Vol] 1.47 mg/dL 0.70-1.[address] [facility] Comment on above: The validity of the calculated GFR & GFRAA in patients over 70 years has not been determined. Clinical correlation is essential. Serum or plasma urea nitroge n measurement (mass/volume)Ordered By: Bethel Gallegos on 11-16-2022 Urea nitrogen [Mass/Vol] 20 mg/dL 7-18 [facility] Thin prep Papanicolaou smear with manual screeningOrdered By: Brijeshedward Gallegos on 11-16-2022 Thin prep Papanicolaou smear with manual screening 5 5-15 [facility] Absolute lymphocyte countOrd ered By: Delma Gonsalves on 11-15-2022 Lymphocytes Auto (Unsp spec) [#/Vol] 1.02 10*3/uL 0.83-4.51 [facility] Basophil percentageOrdered B y: Good Mensahhonorio on 11-15-2022 Basophil percentage 0 SEEN /hpf 0-5 [facility] Basophil percentageOrdered B y: Delma Gonsalves on 11-15-2022 Basophil percentage 6.2 g/dL 6.4-8.2 [facility] Basophil percentage 0.70 mg/dL 0.20-1.00 [facility] Basophil percentage 196 mg/dL <200 [facility] Basophil percentage 107 mg/dL <199 [facility] Basophils (Bld) [#/Vol] 7.4 10*3/uL 4.4-11.0 [facility] Basophils (Bld) [#/Vol] 5.1 10*3/uL 2.0-7.7 [facility] Basophils/100 WBC (Bld) 69.1 % 47-70 [facility] Basophils/100 WBC (Bld) 9.4 % 0-5 [facility] Basophils/100 WBC (Bld) 1.1 % 0-1 [facility] Bilirubin [Mass/Vol] 0.70 mg/dL 0.20-1.00 [facility] Comment on above: For patients on eltr ombopag therapy, use of Dimension [place] TBIL is not recommended. Cholesterol [Mass/Vol] 196 mg/dL <200 [facility] Comment on above: <200 mg/dL Desirable 200-240 mg/dL Borderline >240 mg/dL High Risk Eosinophils/100 WBC (Bld) 9.4 % 0-5 [facility] Neutrophils (Bld) [#/Vol] 5.1 10*3/uL 2.0-7.7 [facility] Neutrophils/100 WBC (Bld) 69.1 % 47-70 [facility] Protein [Mass/Vol] 6.2 g/dL 6.4-8.2 [facility] Triglyceride [Mass/Vol] 107 mg/dL <199 [facility] Comment on above: The drugs N-Acetylcy steine and Metamizole may falsely depress this assay.Serum Triglycerides Reference Interval Normal <150 mg/dL Borderline high 150 - 199 mg/dL High 200 - 499 mg/dL Very High > or = 500 mg/dL WBC (Bld) [#/Vol] 7.4 10*3/uL 4.4-11.0 [facility] Bilirubin Test strip Ql (U)O rdered By: Good Morse on 11-15-2022 Bilirubin Ql (U) Negative Negative [facility] Blood erythrocytes count (nu mber/volume)Ordered By: Delma Gonsalves on 11-15-2022 RBC (Bld) [#/Vol] 4.51 10*6/uL 4.6-6.2 [facility] Blood hemoglobin measurement (mass/volume)Ordered By: Delma Gonsalves on 11-15-2022 Hemoglobin (Bld) [Mass/Vol] 13.1 g/dL 13.0-16.5 [facility] Blood lymphocytes/100 leukoc ytesOrdered By: Delma Gonsalves on 11-15-2022 Lymphocytes/100 WBC (Bld) 13.7 % 19-41 [facility] Blood monocytes/100 leukocyt esOrdered By: Delma Gonsalves on 11-15-2022 Monocytes/100 WBC (Bld) 6.3 % 0-10 [facility] Blood platelet mean volumeOr dered By: Delma Gonsalves on 11-15-2022 Platelet mean volume (Bld) [Entitic vol] 10.1 fL 6.2-12.0 [facility] Determination of erythrocyte mean corpuscular volume (MCV)Ordered By: Delma Gonsalves on 11-15-2022 MCV (RBC) [Entitic vol] 89.6 fL 80-94 [facility] Hematocrit Auto (Bld) [Volum e fraction]Ordered By: Delma Major on 11-15-2022 Hematocrit (Bld) [Volume fraction] 40.4 % 40-54 [facility] Ketones Test strip Ql (U)Ord ered By: Good Morse on 11-15-2022 Ketones Ql (U) Negative Negative [facility] - Chemistry and C hemistry - challengeOrdered By: Delma Gonsalves on 11-15-2022 ALP [Catalytic activity/Vol] 74 U/L 45-117 [facility] ALT [Catalytic activity/Vol] 17 U/L 16-61 [facility] Globulin (S) [Mass/Vol] 3.0 g/dL 2.2-4.2 [facility] - Hematology and Cell countsOrdered By: Delma Gonsalves on 11-15-2022 Erythrocyte distribution width (RBC) [Entitic vol] 50.4 fL 35.1-43.9 [facility] Erythrocyte distribution width (RBC) [Ratio] 15.3 % 11.6-14.6 [facility] Immature granulocytes/100 WBC (Bld) 0.400 % 0.0-0.9 [facility] Comment on above: IG% - Immature Granu locytes (promyelocytes, myelocytes and metamyelocytes) > 1% indicates that a LEFT SHIFT is Present. MCH (RBC) [Entitic mass] 29.0 pg 27.0-32.0 [facility] Nucleated RBC/100 WBC (Bld) [Ratio] 0 % 0-5 [facility] MCHC Auto (RBC) [Mass/Vol]Or dered By: Delma Gonsalves on 11-15-2022 MCHC (RBC) [Mass/Vol] 32.4 g/dL 32-[address] [facility] Mucus LM Ql (Urine sed)Order ed By: Good Morse on 11-15-2022 Mucus Ql (Urine sed) 0 SEEN /hpf [facility] Nitrite Test strip Ql (U)Ord ered By: Good Morse on 11-15-2022 Nitrite Ql (U) Negative Negative [facility] No Panel InformationOrdered By: eDlma Gonsalves on 11-15-2022 29.0 pg 27.0-32.0 [facility] 15.3 % 11.6-14.6 [facility] 50.4 fl 35.1-43.9 [facility] 0.400 % 0.0-0.9 [facility] 0 % 0-5 [facility] 3.0 g/dL 2.2-4.2 [facility] 74 U/L 45-117 [facility] 17 U/L 16-61 [facility] Platelets bldOrdered By: Babar Gonsalves on 11-15-2022 Platelets (Bld) [#/Vol] 280 10*3/uL 150-450 [facility] Protein Test strip Ql (U)Ord ered By: Good Morse on 11-15-2022 Protein Ql (U) Negative Negative [facility] Serum or plasma albumin/glob ulin mass ratioOrdered By: Delma Gonsalves on 11-15-2022 Albumin/Globulin [Mass ratio] 1.1 {ratio} 0.9-2.4 [facility] Serum or plasma cholesterol in HDL measurement (mass/volume)Ordered By: Delma Gonsalves on 11-15-2022 Cholesterol in HDL [Mass/Vol] 62 mg/dL >40 [facility] Comment on above: The drugs N-Acetylcy steine and Metamizole may falsely depress this assay. Reference Range HDL <40 mg/dL Low HDL Cholesterol HDL >or= 60 mg/dL High HDL Cholesterol Serum or plasma cholesterol in VLDL measurement (mass/volume)Ordered By: Delma Gonsalves on 11-15-2022 Cholesterol in VLDL [Mass/Vol] 21 mg/dL 5-40 [facility] Serum or plasma low density lipoprotein (LDL) cholesterol measurement (mass/volume)Ordered By: Delma Gonsalves on 11-15-2022 Cholesterol in LDL [Mass/Vol] 113 mg/dL 0-130 [facility] Squamous epithelial cells de tection in urine sediment by light microscopyOrdered By: Good Morse on 11-15-2022 Epithelial cells.squamous LM Ql (Urine sed) 0 SEEN /hpf 0-5 [facility] Thin prep Papanicolaou smear with manual screeningOrdered By: Delma White on 11-15-2022 Thin prep Papanicolaou smear with manual screening 23 U/L 15-37 [facility] Urine blood detectionOrdered By: Good Morse on 11-15-2022 RBC Ql (U) Negative Negative [facility] RBC Ql (U) 0 SEEN /hpf 0-5 [facility] Urine clarityOrdered By: Courtney Morse on 11-15-2022 Clarity (U) Clear Clear [facility] Urine color determinationOrd ered By: Good Morse on 11-15-2022 Color (U) Yellow Yellow [facility] Urine glucose detectionOrder ed By: Good Morse on 11-15-2022 Glucose Ql (U) Normal mg/dl Normal [facility] Urine leukocyte esterase det ection by dipstickOrdered By: Good Morse on 11-15-2022 Leukocyte esterase Test strip Ql (U) Negative Negative [facility] Urine pHOrdered By: Devin Morse on 11-15-2022 pH (U) 6.5 [pH] 5.0 - 8.0 [facility] Urine sediment bacteria coun t by microscopy (number/high power field)Ordered By: Good Morse on 11-15-2022 Bacteria LM.HPF (Urine sed) [#/Area] 0 /[HPF] None Seen [facility] Urine specific gravity measu rementOrdered By: Good Morse on 11-15-2022 Specific gravity (U) [Rel density] 1.010 1.002-1.030 [facility] Urobilinogen Auto test strip Ql (U)Ordered By: Good Morse on 11-15-2022 Urobilinogen Ql (U) Normal mg/dl Normal [facility] Absolute lymphocyte countOrd ered By: Rafa Hernandez on 11-14-2022 Lymphocytes Auto (Unsp spec) [#/Vol] 1.74 10*3/uL 0.83-4.51 [facility] Basophil percentageOrdered B y: Rafa Hernandez on 11-14-2022 Basophils/100 WBC (Bld) 0.8 % 0-1 [facility] Chloride [Moles/Vol] 106 mmol/L 98-107 [facility] Eosinophils/100 WBC (Bld) 8.5 % 0-5 [facility] Glucose [Mass/Vol] 107 mg/dL 74-106 [facility] Comment on above: Fasting Glucose resu lt from 100 to 125 mg/dL suggests IMPAIRED HOMEOSTASIS per A.D.A. criteria. Neutrophils (Bld) [#/Vol] 5.8 10*3/uL 2.0-7.7 [facility] Neutrophils/100 WBC (Bld) 63.8 % 47-70 [facility] Potassium [Moles/Vol] 3.5 mmol/L 3.5-5.[address] [facility] Sodium [Moles/Vol] 142 mmol/L 136-145 [facility] WBC (Bld) [#/Vol] 9.1 10*3/uL 4.4-11.0 [facility] Blood erythrocytes count (nu mber/volume)Ordered By: Rafa Hernandez on 11-14-2022 RBC (Bld) [#/Vol] 4.77 10*6/uL 4.6-6.2 [facility] Blood hemoglobin measurement (mass/volume)Ordered By: Rafa Hernandez on 11-14-2022 Hemoglobin (Bld) [Mass/Vol] 14.0 g/dL 13.0-16.5 [facility] Blood lymphocytes/100 leukoc ytesOrdered By: Rafa Hernandez on 11-14-2022 Lymphocytes/100 WBC (Bld) 19.2 % 19-41 [facility] Blood monocytes/100 leukocyt esOrdered By: Rafa Hernandez on 11-14-2022 Monocytes/100 WBC (Bld) 7.4 % 0-10 [facility] Blood platelet mean volumeOr dered By: Rafa Hernandez on 11-14-2022 Platelet mean volume (Bld) [Entitic vol] 10.2 fL 6.2-12.0 [facility] Determination of erythrocyte mean corpuscular volume (MCV)Ordered By: Rafa Hernandez on 11-14-2022 MCV (RBC) [Entitic vol] 89.3 fL 80-94 [facility] Hematocrit Auto (Bld) [Volum e fraction]Ordered By: Rafa Hernandez on 11-14-2022 Hematocrit (Bld) [Volume fraction] 42.6 % 40-54 [facility] INR in Blood by Coagulation assayOrdered By: Rafa Hernandez on 11-14-2022 INR Coag (Bld) [Relative time] 1.0 {INR} [facility] - Chemistry and C hemistry - challengeOrdered By: Delma Gonsalves on 11-14-2022 Magnesium [Mass/Vol] 2.2 mg/dL 1.6-2.6 [facility] - Chemistry and C hemistry - challengeOrdered By: Rafa Hernandez on 11-14-2022 CO2 [Moles/Vol] 29.0 mmol/L 21.0-32.0 [facility] Urea nitrogen/Creatinine [Mass ratio] 12.9 mg/mg 10-20 [facility] - CoagulationOrde red By: Rafa Hernandez on 11-14-2022 aPTT Coag (Bld) [Time] 31.6 s 24.1-36.2 [facility] PT Coag (PPP) [Time] 13.1 s 11.7-14.9 [facility] - Hematology and Cell countsOrdered By: Rafa Hernandez on 11-14-2022 Erythrocyte distribution width (RBC) [Entitic vol] 50.1 fL 35.1-43.9 [facility] Erythrocyte distribution width (RBC) [Ratio] 15.3 % 11.6-14.6 [facility] Immature granulocytes/100 WBC (Bld) 0.300 % 0.0-0.9 [facility] Comment on above: IG% - Immature Granu locytes (promyelocytes, myelocytes and metamyelocytes) > 1% indicates that a LEFT SHIFT is Present. MCH (RBC) [Entitic mass] 29.4 pg 27.0-32.0 [facility] Nucleated RBC/100 WBC (Bld) [Ratio] 0 % 0-5 [facility] MCHC Auto (RBC) [Mass/Vol]Or dered By: Rafa Hernandez on 11-14-2022 MCHC (RBC) [Mass/Vol] 32.9 g/dL 32-[address] [facility] No Panel InformationOrdered By: Bethel Gallegso on 11-14-2022 Troponin I High Sensitivity 1880 pg/mL 3.0-78.0 [facility] Comment on above: Critical Result(s) C alled at: 16:40:34 11/14/2022 by: Barbara CHRIS. Results read back by same. Please Note: New Test Units and Gender Specific Reference Ranges. For more information see Policy Stat Procedure [place] High Sensitivity Troponin (TNIH) and attachments. 1880 pg/mL 3.0-78.0 [facility] No Panel InformationOrdered By: Rafa Hernandez on 11-14-2022 Troponin I High Sensitivity 456 pg/mL 3.0-78.0 [facility] Comment on above: Critical Result(s) C alled at: 04:44:11 11/14/2022 by: VENTURA SALAZAR. TO KARENA Results read back by same. Please Note: New Test Units and Gender Specific Reference Ranges. For more information see Policy Stat Procedure [place] High Sensitivity Troponin (TNIH) and attachments. Estimated Creatinine Clearance Calc 31.98 ml/min [facility] Estimated GFR (MDRD) Amer 48 mL/min >60 [facility] Comment on above: GFR Calc Estimated GFR (MDRD) Non-Af Amer 39 mL/min >60 [facility] Comment on above: Non- GFR Calc 13.1 SECONDS 11.7-14.9 [facility] No Panel InformationOrdered By: Delma Gonsalves on 11-14-2022 2.2 mg/dL 1.6-2.6 [facility] Platelets bldOrdered By: Leo Hernandez on 11-14-2022 Platelets (Bld) [#/Vol] 336 10*3/uL 150-450 [facility] Serum or plasma calcium jenna urement (mass/volume)Ordered By: Rafa Hernandez on 11-14-2022 Calcium [Mass/Vol] 10.0 mg/dL 8.5-10.1 [facility] Serum or plasma creatinine m easurement (mass/volume)Ordered By: Rafa Hernandez on 11-14-2022 Creatinine [Mass/Vol] 1.78 mg/dL 0.70-1.[address] [facility] Comment on above: The validity of the calculated GFR & GFRAA in patients over 70 years has not been determined. Clinical correlation is essential. Serum or plasma urea nitroge n measurement (mass/volume)Ordered By: Rafa Hernandez on 11-14-2022 Urea nitrogen [Mass/Vol] 23 mg/dL 7-18 [facility] Thin prep Papanicolaou smear with manual screeningOrdered By: Rafa Hernandez on 11-14-2022 Thin prep Papanicolaou smear with manual screening 7 5-15 [facility] Absolute lymphocyte countOrd ered By: Thomas Oropeza on 11-01-2022 Lymphocytes Auto (Unsp spec) [#/Vol] 1.75 10*3/uL 0.83-4.51 [facility] Basophil percentageOrdered B y: Thomas Oropeza on 11-01-2022 Basophil percentage 88 mg/dL 74-106 [facility] Basophil percentage 142 mmol/L 136-145 [facility] Basophil percentage 3.1 mmol/L 3.5-5.1 [facility] Basophil percentage 108 mmol/L 98-107 [facility] Basophils (Bld) [#/Vol] 10.4 10*3/uL 4.4-11.0 [facility] Basophils (Bld) [#/Vol] 7.4 10*3/uL 2.0-7.7 [facility] Basophils/100 WBC (Bld) 0.5 % 0-1 [facility] Basophils/100 WBC (Bld) 71.8 % 47-70 [facility] Basophils/100 WBC (Bld) 1.6 % 0-5 [facility] Chloride [Moles/Vol] 108 mmol/L 98-107 [facility] Eosinophils/100 WBC (Bld) 1.6 % 0-5 [facility] Glucose [Mass/Vol] 88 mg/dL 74-106 [facility] Neutrophils (Bld) [#/Vol] 7.4 10*3/uL 2.0-7.7 [facility] Neutrophils/100 WBC (Bld) 71.8 % 47-70 [facility] Potassium [Moles/Vol] 3.1 mmol/L 3.5-5.[address] [facility] Sodium [Moles/Vol] 142 mmol/L 136-145 [facility] WBC (Bld) [#/Vol] 10.4 10*3/uL 4.4-11.0 [facility] Blood erythrocytes count (nu mber/volume)Ordered By: Thomas Oropeza on 11-01-2022 RBC (Bld) [#/Vol] 4.81 10*6/uL 4.6-6.2 [facility] Blood hemoglobin measurement (mass/volume)Ordered By: Thomas Oropeza on 11-01-2022 Hemoglobin (Bld) [Mass/Vol] 14.0 g/dL 13.0-16.5 [facility] Blood lymphocytes/100 leukoc ytesOrdered By: Thomas Oropeza on 11-01-2022 Lymphocytes/100 WBC (Bld) 16.9 % 19-41 [facility] Blood monocytes/100 leukocyt esOrdered By: Thomas Oropeza on 11-01-2022 Monocytes/100 WBC (Bld) 8.6 % 0-10 [facility] Blood platelet mean volumeOr dered By: Thomas Oropeza on 11-01-2022 Platelet mean volume (Bld) [Entitic vol] 10.3 fL 6.2-12.0 [facility] Determination of erythrocyte mean corpuscular volume (MCV)Ordered By: Thomas Oropeza on 11-01-2022 MCV (RBC) [Entitic vol] 88.4 fL 80-94 [facility] Hematocrit Auto (Bld) [Volum e fraction]Ordered By: Thomas Oropeza on 11-01-2022 Hematocrit (Bld) [Volume fraction] 42.5 % 40-54 [facility] - Chemistry and C hemistry - challengeOrdered By: Thomas Oropeza on 11-01-2022 CO2 [Moles/Vol] 29.0 mmol/L 21.0-32.0 [facility] Urea nitrogen/Creatinine [Mass ratio] 19.1 mg/mg 10-20 [facility] - Hematology and Cell countsOrdered By: Thomas Oropeza on 11-01-2022 Erythrocyte distribution width (RBC) [Entitic vol] 48.8 fL 35.1-43.9 [facility] Erythrocyte distribution width (RBC) [Ratio] 15.0 % 11.6-14.6 [facility] Immature granulocytes/100 WBC (Bld) 0.600 % 0.0-0.9 [facility] Comment on above: IG% - Immature Granu locytes (promyelocytes, myelocytes and metamyelocytes) > 1% indicates that a LEFT SHIFT is Present. MCH (RBC) [Entitic mass] 29.1 pg 27.0-32.0 [facility] Nucleated RBC/100 WBC (Bld) [Ratio] 0 % 0-5 [facility] MCHC Auto (RBC) [Mass/Vol]Or dered By: Thomas Oropeza on 11-01-2022 MCHC (RBC) [Mass/Vol] 32.9 g/dL 32-[address] [facility] No Panel InformationOrdered By: Thomas Oropeza on 11-01-2022 Estimated Creatinine Clearance Calc 37.45 ml/min [facility] Estimated GFR (MDRD) Amer 57 mL/min >60 [facility] Comment on above: GFR Calc Estimated GFR (MDRD) Non-Af Amer 47 mL/min >60 [facility] Comment on above: Non- GFR Calc Troponin I High Sensitivity 32 pg/mL 3.0-78.0 [facility] Comment on above: Please Note: New Nayeli t Units and Gender Specific Reference Ranges. For more information see Policy Stat Procedure [place] High Sensitivity Troponin (TNIH) and attachments. 29.1 pg 27.0-32.0 [facility] 15.0 % 11.6-14.6 [facility] 48.8 fl 35.1-43.9 [facility] 0.600 % 0.0-0.9 [facility] 0 % 0-5 [facility] 47 mL/min >60 [facility] 57 mL/min >60 [facility] 37.45 ml/min [facility] 19.1 RATIO 10- [facility] 32 pg/mL 3.0-78.0 [facility] 29.0 mmol/L 21.0-32.0 [facility] Platelets bldOrdered By: Benitez Oropeza on 11-01-2022 Platelets (Bld) [#/Vol] 345 10*3/uL 150-450 [facility] Serum or plasma calcium jenna urement (mass/volume)Ordered By: Thomas Oropeza on 11-01-2022 Calcium [Mass/Vol] 9.5 mg/dL 8.5-10.1 [facility] Serum or plasma creatinine m easurement (mass/volume)Ordered By: Thomas Oropeza on 11-01-2022 Creatinine [Mass/Vol] 1.52 mg/dL 0.70-1.[address] [facility] Comment on above: The validity of the calculated GFR & GFRAA in patients over 70 years has not been determined. Clinical correlation is essential. Serum or plasma urea nitroge n measurement (mass/volume)Ordered By: Thomas Oropeza on 11-01-2022 Urea nitrogen [Mass/Vol] 29 mg/dL 7-18 [facility] Thin prep Papanicolaou smear with manual screeningOrdered By: Thomas Oropeza on 11-01-2022 Thin prep Papanicolaou smear with manual screening 5 5-15 [facility] - Microbiology an d Antimicrobial susceptibilityOrdered By: Dr. Jose on 08-14-2022 Bacteria identified Cx Nom (Bld) No growth in 5 days. [facility] Bacteria identified Cx Nom (Bld) No growth in 5 days. [facility] Culture, urineOrdered By: Dr Neville Jose on 08-10-2022 Bacteria identified Cx Nom (U) Culture exhibits no growth. [facility] Absolute lymphocyte countOrd ered By: Dr. Jose on 08-08-2022 Lymphocytes Auto (Unsp spec) [#/Vol] 0.50 10*3/uL 0.83-4.51 [facility] Basophil percentageOrdered B y: Dr. Jose on 08-08-2022 Basophil percentage 0-5 SEEN /hpf 0-5 [facility] Basophils/100 WBC (Bld) 0.6 % 0-1 [facility] Bilirubin [Mass/Vol] 0.50 mg/dL 0.20-1.00 [facility] Comment on above: For patients on eltr ombopag therapy, use of Dimension [place] TBIL is not recommended. Chloride [Moles/Vol] 103 mmol/L 98-107 [facility] Eosinophils/100 WBC (Bld) 3.1 % 0-5 [facility] Glucose [Mass/Vol] 143 mg/dL 74-106 [facility] Comment on above: Fasting Glucose resu lt greater than or equal to 126 mg/dL suggests DIABETES MELLITUS per A.D.A. criteria. Lactate [Moles/Vol] 1.8 mmol/L 0.4-2.0 [facility] Neutrophils (Bld) [#/Vol] 6.4 10*3/uL 2.0-7.7 [facility] Neutrophils/100 WBC (Bld) 79.7 % 47-70 [facility] Potassium [Moles/Vol] 3.6 mmol/L 3.5-5.[address] [facility] Protein [Mass/Vol] 7.1 g/dL 6.4-8.2 [facility] Sodium [Moles/Vol] 136 mmol/L 136-145 [facility] WBC (Bld) [#/Vol] 8.0 10*3/uL 4.4-11.0 [facility] Basophil percentageOrdered B y: Nanette Jose on 08-08-2022 Basophil percentage 143 mg/dL 74-106 [facility] Basophil percentage 7.1 g/dL 6.4-8.2 [facility] Basophil percentage 0.50 mg/dL 0.20-1.00 [facility] Basophil percentage 136 mmol/L 136-145 [facility] Basophil percentage 3.6 mmol/L 3.5-5.1 [facility] Basophil percentage 103 mmol/L 98-107 [facility] Basophil percentage 1.8 mmol/L 0.4-2.0 [facility] Basophils (Bld) [#/Vol] 8.0 10*3/uL 4.4-11.0 [facility] Basophils (Bld) [#/Vol] 6.4 10*3/uL 2.0-7.7 [facility] Basophils/100 WBC (Bld) 79.7 % 47-70 [facility] Basophils/100 WBC (Bld) 3.1 % 0-5 [facility] Bilirubin Test strip Ql (U)O rdered By: Dr. Jose on 08-08-2022 Bilirubin Ql (U) Negative Negative [facility] Blood erythrocytes count (nu mber/volume)Ordered By: Dr. Jose on 08-08-2022 RBC (Bld) [#/Vol] 4.89 10*6/uL 4.6-6.2 [facility] Blood hemoglobin measurement (mass/volume)Ordered By: Dr. Jose on 08-08-2022 Hemoglobin (Bld) [Mass/Vol] 13.9 g/dL 13.0-16.5 [facility] Blood lymphocytes/100 leukoc ytesOrdered By: Dr. Jose on 08-08-2022 Lymphocytes/100 WBC (Bld) 6.3 % 19-41 [facility] Blood manual differential co mment interpretation (narrative result)Ordered By: Dr. Jose on 08-08-2022 Manual differential comment Odin (Bld) [Interp] SEE COMMENT [facility] Comment on above: LYMPHOPENIA NOTED Blood monocytes/100 leukocyt esOrdered By: [address] Jose on 08-08-2022 Monocytes/100 WBC (Bld) 9.9 % 0-10 [facility] Blood platelet adequacy dete ction by light microscopyOrdered By: Dr. Jose on 08-08-2022 Platelets LM Ql (Bld) ADEQUATE ADEQ [facility] Blood platelet mean volumeOr dered By: Dr. Jose on 08-08-2022 Platelet mean volume (Bld) [Entitic vol] 11.1 fL 6.2-12.0 [facility] Culture, urineOrdered By: Serjio Jose on 08-08-2022 Bacteria identified Cx Nom (U) Culture exhibits no growth. [facility] Determination of erythrocyte mean corpuscular volume (MCV)Ordered By: Dr. Jose on 08-08-2022 MCV (RBC) [Entitic vol] 88.1 fL 80-94 [facility] Hematocrit Auto (Bld) [Volum e fraction]Ordered By: Dr. Jose on 08-08-2022 Hematocrit (Bld) [Volume fraction] 43.1 % 40-54 [facility] INR in Blood by Coagulation assayOrdered By: Dr. Jose on 08-08-2022 INR Coag (Bld) [Relative time] 1.1 {INR} [facility] Influenza virus A and B and SARS-CoV-2 (COVID-19) Ag panel - Upper respiratory specimOrdered By: Nanette Jose on 08-08-2022 SARS-CoV-2 (COVID-19) RNA CHUY+probe Ql (Resp) [facility] Influenza virus A and B and SARS-CoV-2 (COVID-19) Ag panel - Upper respiratory specimOrdered By: Dr. Jose on 08-08-2022 SARS-CoV-2 (COVID-19) RNA CHUY+probe Ql (Resp) [facility] Ketones Test strip Ql (U)Ord ered By: Dr. Jose on 08-08-2022 Ketones Ql (U) 5 mg/dl Negative [facility] Laboratory - Chemistry and C hemistry - challengeOrdered By: Dr. Jose on 08-08-2022 ALP [Catalytic activity/Vol] 91 U/L 45-117 [facility] ALT [Catalytic activity/Vol] 21 U/L 16-61 [facility] CO2 [Moles/Vol] 24.0 mmol/L 21.0-32.0 [facility] Globulin (S) [Mass/Vol] 3.5 g/dL 2.2-4.2 [facility] Urea nitrogen/Creatinine [Mass ratio] 11.0 mg/mg 10-20 [facility] Laboratory - CoagulationOrde red By: Dr. Jose on 08-08-2022 aPTT Coag (Bld) [Time] 33.2 s 24.1-36.2 [facility] PT Coag (PPP) [Time] 14.2 s 11.7-14.9 [facility] Laboratory - Hematology and Cell countsOrdered By: Dr. Jose on 08-08-2022 Erythrocyte distribution width (RBC) [Entitic vol] 49.6 fL 35.1-43.9 [facility] Erythrocyte distribution width (RBC) [Ratio] 15.5 % 11.6-14.6 [facility] Immature granulocytes/100 WBC (Bld) 0.400 % 0.0-0.9 [facility] Comment on above: IG% - Immature Granu locytes (promyelocytes, myelocytes and metamyelocytes) > 1% indicates that a LEFT SHIFT is Present. MCH (RBC) [Entitic mass] 28.4 pg 27.0-32.0 [facility] Nucleated RBC/100 WBC (Bld) [Ratio] 0 % 0-5 [facility] - Microbiology an d Antimicrobial susceptibilityOrdered By: Nanette Jose on 08-08-2022 Bacteria identified Cx Nom (Bld) No growth in 5 days. [facility] MCHC Auto (RBC) [Mass/Vol]Or dered By: Dr. Jose on 08-08-2022 MCHC (RBC) [Mass/Vol] 32.3 g/dL 32-[address] [facility] Mucus LM Ql (Urine sed)Order ed By: Dr. Jose on 08-08-2022 Mucus Ql (Urine sed) 0 SEEN /hpf [facility] Nitrite Test strip Ql (U)Ord ered By: Dr. Jose on 08-08-2022 Nitrite Ql (U) Negative Negative [facility] No Panel InformationOrdered By: Nanette Jose on 08-08-2022 No growth in 5 days. [facility] 28.4 pg 27.0-32.0 [facility] 15.5 % 11.6-14.6 [facility] 49.6 fl 35.1-43.9 [facility] 0.400 % 0.0-0.9 [facility] 0 % 0-5 [facility] 14.2 SECONDS 11.7-14.9 [facility] 33.2 Seconds 24.1-36.2 [facility] 39 mL/min >60 [facility] 47 mL/min >60 [facility] 31.45 ml/min [facility] 11.0 RATIO 10-20 [facility] 3.5 g/dL 2.2-4.2 [facility] 91 U/L 45-117 [facility] 21 U/L 16-61 [facility] 24.0 mmol/L 21.0-32.0 [facility] No Panel InformationOrdered By: Dr. Jose on 08-08-2022 Estimated Creatinine Clearance Calc 31.45 ml/min [facility] Estimated GFR (MDRD) Amer 47 mL/min >60 [facility] Comment on above: GFR Calc Estimated GFR (MDRD) Non-Af Amer 39 mL/min >60 [facility] Comment on above: Non- GFR Calc Platelets bldOrdered By: Dr. Jose on 08-08-2022 Platelets (Bld) [#/Vol] 270 10*3/uL 150-450 [facility] Protein Test strip Ql (U)Ord ered By: Dr. Jose on 08-08-2022 Protein Ql (U) 30 mg/dl Negative [facility] RBC morphologyOrdered By: Dr Neville Jose on 08-08-2022 RBC morphology finding Nom (Bld) NORM C+C NORMAL NORM C&C [facility] Serum or plasma albumin jenna urement (mass/volume)Ordered By: Dr. Jose on 08-08-2022 Albumin [Mass/Vol] 3.6 g/dL 3.2-5.0 [facility] Serum or plasma albumin/glob ulin mass ratioOrdered By: Dr. Jose on 08-08-2022 Albumin/Globulin [Mass ratio] 1.0 {ratio} 0.9-2.4 [facility] Serum or plasma calcium jenna urement (mass/volume)Ordered By: Dr. Jose on 08-08-2022 Calcium [Mass/Vol] 9.4 mg/dL 8.5-10.1 [facility] Serum or plasma creatinine m easurement (mass/volume)Ordered By: Dr. Jose on 08-08-2022 Creatinine [Mass/Vol] 1.81 mg/dL 0.70-1.[address] [facility] Comment on above: The validity of the calculated GFR & GFRAA in patients over 70 years has not been determined. Clinical correlation is essential. Serum or plasma urea nitroge n measurement (mass/volume)Ordered By: Dr. Jose on 08-08-2022 Urea nitrogen [Mass/Vol] 20 mg/dL 7-18 [facility] Squamous epithelial cells de tection in urine sediment by light microscopyOrdered By: Dr. Jose on 08-08-2022 Epithelial cells.squamous LM Ql (Urine sed) 0 SEEN /hpf 0-5 [facility] Thin prep Papanicolaou smear with manual screeningOrdered By: Dr. Jose on 08-08-2022 Thin prep Papanicolaou smear with manual screening 20 U/L 15-37 [facility] Thin prep Papanicolaou smear with manual screening 9 5-15 [facility] Urine blood detectionOrdered By: Dr. Jose on 08-08-2022 RBC Ql (U) Negative Negative [facility] RBC Ql (U) 0 SEEN /hpf 0-5 [facility] Urine clarityOrdered By: Dr. Jose on 08-08-2022 Clarity (U) Clear Clear [facility] Urine color determinationOrd ered By: Dr. Jose on 08-08-2022 Color (U) Yellow Yellow [facility] Urine glucose detectionOrder ed By: Dr. Jose on 08-08-2022 Glucose Ql (U) Normal mg/dl Normal [facility] Urine leukocyte esterase det ection by dipstickOrdered By: Dr. Jose on 08-08-2022 Leukocyte esterase Test strip Ql (U) 25 /ul Negative [facility] Urine pHOrdered By: Dr. Jade dixon on 08-08-2022 pH (U) 5.0 [pH] 5.0 - 8.0 [facility] Urine sediment bacteria coun t by microscopy (number/high power field)Ordered By: Dr. Jose on 08-08-2022 Bacteria LM.HPF (Urine sed) [#/Area] 0 /[HPF] None Seen [facility] Urine specific gravity measu rementOrdered By: Dr. Jose on 08-08-2022 Specific gravity (U) [Rel density] 1.025 1.002-1.030 [facility] Urobilinogen Auto test strip Ql (U)Ordered By: Dr. Jose on 08-08-2022 Urobilinogen Ql (U) 1 mg/dl Normal [facility] Absolute lymphocyte countOrd ered By: Nick Maguire on 07-26-2022 Lymphocytes Auto (Unsp spec) [#/Vol] 1.01 10*3/uL 0.83-4.51 [facility] Basophil percentageOrdered B y: Nick Maguire on 07-26-2022 Basophil percentage 2.9 mg/dL 2.5-4.9 [facility] Basophils (Bld) [#/Vol] 8.3 10*3/uL 4.4-11.0 [facility] Basophils (Bld) [#/Vol] 6.0 10*3/uL 2.0-7.7 [facility] Basophils/100 WBC (Bld) 1.1 % 0-1 [facility] Basophils/100 WBC (Bld) 72.1 % 47-70 [facility] Basophils/100 WBC (Bld) 6.3 % 0-5 [facility] Eosinophils/100 WBC (Bld) 6.3 % 0-5 [facility] Neutrophils (Bld) [#/Vol] 6.0 10*3/uL 2.0-7.7 [facility] Neutrophils/100 WBC (Bld) 72.1 % 47-70 [facility] WBC (Bld) [#/Vol] 8.3 10*3/uL 4.4-11.0 [facility] Basophil percentageOrdered B y: Tiki Saldivar on 07-26-2022 Basophil percentage 102 mg/dL 74-106 [facility] Basophil percentage 142 mmol/L 136-145 [facility] Basophil percentage 4.0 mmol/L 3.5-5.1 [facility] Basophil percentage 112 mmol/L 98-107 [facility] Basophil percentageOrdered B y: Dr. Saldivar on 07-26-2022 Chloride [Moles/Vol] 112 mmol/L 98-107 [facility] Glucose [Mass/Vol] 102 mg/dL 74-106 [facility] Comment on above: Fasting Glucose resu lt from 100 to 125 mg/dL suggests IMPAIRED HOMEOSTASIS per A.D.A. criteria. Potassium [Moles/Vol] 4.0 mmol/L 3.5-5.[address] [facility] Sodium [Moles/Vol] 142 mmol/L 136-145 [facility] Blood erythrocytes count (nu mber/volume)Ordered By: Nick Maguire on 07-26-2022 RBC (Bld) [#/Vol] 4.26 10*6/uL 4.6-6.2 [facility] Blood hemoglobin measurement (mass/volume)Ordered By: Nick Maguire on 07-26-2022 Hemoglobin (Bld) [Mass/Vol] 11.9 g/dL 13.0-16.5 [facility] Blood lymphocytes/100 leukoc ytesOrdered By: Nick Maguire on 07-26-2022 Lymphocytes/100 WBC (Bld) 12.2 % 19-41 [facility] Blood monocytes/100 leukocyt esOrdered By: Nick Maguire on 07-26-2022 Monocytes/100 WBC (Bld) 8.1 % 0-10 [facility] Blood platelet mean volumeOr dered By: Nick Maguire on 07-26-2022 Platelet mean volume (Bld) [Entitic vol] 10.6 fL 6.2-12.0 [facility] Determination of erythrocyte mean corpuscular volume (MCV)Ordered By: Nick Maguire on 07-26-2022 MCV (RBC) [Entitic vol] 90.4 fL 80-94 [facility] Hematocrit Auto (Bld) [Volum e fraction]Ordered By: Nick Maguire on 07-26-2022 Hematocrit (Bld) [Volume fraction] 38.5 % 40-54 [facility] Laboratory - Chemistry and C hemistry - challengeOrdered By: Dr. Saldivar on 07-26-2022 CO2 [Moles/Vol] 27.0 mmol/L 21.0-32.0 [facility] Urea nitrogen/Creatinine [Mass ratio] 15.2 mg/mg 10-20 [facility] - Chemistry and C hemistry - challengeOrdered By: Nick Maguire on 07-26-2022 Magnesium [Mass/Vol] 2.1 mg/dL 1.6-2.6 [facility] - Hematology and Cell countsOrdered By: Nick Maguire on 07-26-2022 Erythrocyte distribution width (RBC) [Entitic vol] 52.0 fL 35.1-43.9 [facility] Erythrocyte distribution width (RBC) [Ratio] 15.9 % 11.6-14.6 [facility] Immature granulocytes/100 WBC (Bld) 0.200 % 0.0-0.9 [facility] Comment on above: IG% - Immature Granu locytes (promyelocytes, myelocytes and metamyelocytes) > 1% indicates that a LEFT SHIFT is Present. MCH (RBC) [Entitic mass] 27.9 pg 27.0-32.0 [facility] Nucleated RBC/100 WBC (Bld) [Ratio] 0 % 0-5 [facility] MCHC Auto (RBC) [Mass/Vol]Or dered By: Nick Maguire on 07-26-2022 MCHC (RBC) [Mass/Vol] 30.9 g/dL 32-[address] [facility] No Panel InformationOrdered By: Dr. Saldivar on 07-26-2022 Estimated Creatinine Clearance Calc 37.69 ml/min [facility] Estimated GFR (MDRD) Amer 58 mL/min >60 [facility] Comment on above: GFR Calc Estimated GFR (MDRD) Non-Af Amer 48 mL/min >60 [facility] Comment on above: Non- GFR Calc No Panel InformationOrdered By: Nick Maguire on 07-26-2022 27.9 pg 27.0-32.0 [facility] 15.9 % 11.6-14.6 [facility] 52.0 fl 35.1-43.9 [facility] 0.200 % 0.0-0.9 [facility] 0 % 0-5 [facility] 2.1 mg/dL 1.6-2.6 [facility] No Panel InformationOrdered By: Tiki Saldivar on 07-26-2022 48 mL/min >60 [facility] 58 mL/min >60 [facility] 37.69 ml/min [facility] 15.2 RATIO 10-20 [facility] 27.0 mmol/L 21.0-32.0 [facility] Platelets bldOrdered By: Jasmyn Maguire on 07-26-2022 Platelets (Bld) [#/Vol] 339 10*3/uL 150-450 [facility] Serum or plasma calcium jenna urement (mass/volume)Ordered By: Dr. Saldivar on 07-26-2022 Calcium [Mass/Vol] 8.7 mg/dL 8.5-10.1 [facility] Serum or plasma creatinine m easurement (mass/volume)Ordered By: Dr. Saldivar on 07-26-2022 Creatinine [Mass/Vol] 1.51 mg/dL 0.70-1.[address] [facility] Comment on above: The validity of the calculated GFR & GFRAA in patients over 70 years has not been determined. Clinical correlation is essential. Serum or plasma urea nitroge n measurement (mass/volume)Ordered By: Dr. Saldivar on 07-26-2022 Urea nitrogen [Mass/Vol] 23 mg/dL 7-18 [facility] Thin prep Papanicolaou smear with manual screeningOrdered By: Dr. Saldivar on 07-26-2022 Thin prep Papanicolaou smear with manual screening 3 5-15 [facility] Absolute lymphocyte countOrd ered By: Dr. Eli on 07-25-2022 Lymphocytes Auto (Unsp spec) [#/Vol] 0.62 10*3/uL 0.83-4.51 [facility] Basophil percentageOrdered B y: Dr. Eli on 07-25-2022 Basophil percentage 0-5 SEEN /hpf 0-5 [facility] Basophils/100 WBC (Bld) 0.6 % 0-1 [facility] Bilirubin [Mass/Vol] 0.70 mg/dL 0.20-1.00 [facility] Comment on above: For patients on eltr ombopag therapy, use of Dimension [place] TBIL is not recommended. Chloride [Moles/Vol] 106 mmol/L 98-107 [facility] Eosinophils/100 WBC (Bld) 0.8 % 0-5 [facility] Glucose [Mass/Vol] 151 mg/dL 74-106 [facility] Comment on above: Fasting Glucose resu lt greater than or equal to 126 mg/dL suggests DIABETES MELLITUS per A.D.A. criteria. Neutrophils (Bld) [#/Vol] 15.1 10*3/uL 2.0-7.7 [facility] Neutrophils/100 WBC (Bld) 89.5 % 47-70 [facility] Potassium [Moles/Vol] 4.6 mmol/L 3.5-5.[address] [facility] Protein [Mass/Vol] 7.5 g/dL 6.4-8.2 [facility] Sodium [Moles/Vol] 139 mmol/L 136-145 [facility] WBC (Bld) [#/Vol] 16.8 10*3/uL 4.4-11.0 [facility] Basophil percentageOrdered B y: Barney Eli on 07-25-2022 Basophil percentage 7.5 g/dL 6.4-8.2 [facility] Basophil percentage 0.70 mg/dL 0.20-1.00 [facility] Bilirubin Test strip Ql (U)O rdered By: Dr. Eli on 07-25-2022 Bilirubin Ql (U) Negative Negative [facility] Blood erythrocytes count (nu mber/volume)Ordered By: Dr. Eli on 07-25-2022 RBC (Bld) [#/Vol] 5.37 10*6/uL 4.6-6.2 [facility] Blood hemoglobin measurement (mass/volume)Ordered By: Dr. Eli on 07-25-2022 Hemoglobin (Bld) [Mass/Vol] 15.1 g/dL 13.0-16.5 [facility] Blood lymphocytes/100 leukoc ytesOrdered By: Dr. Eli on 07-25-2022 Lymphocytes/100 WBC (Bld) 3.7 % 19-41 [facility] Blood monocytes/100 leukocyt esOrdered By: Dr. Eli on 07-25-2022 Monocytes/100 WBC (Bld) 4.8 % 0-10 [facility] Blood platelet mean volumeOr dered By: Dr. Eli on 07-25-2022 Platelet mean volume (Bld) [Entitic vol] 10.4 fL 6.2-12.0 [facility] Determination of erythrocyte mean corpuscular volume (MCV)Ordered By: Dr. Eli on 07-25-2022 MCV (RBC) [Entitic vol] 87.3 fL 80-94 [facility] Hematocrit Auto (Bld) [Volum e fraction]Ordered By: Dr. Eli on 07-25-2022 Hematocrit (Bld) [Volume fraction] 46.9 % 40-54 [facility] Ketones Test strip Ql (U)Ord ered By: Dr. Eli on 07-25-2022 Ketones Ql (U) Negative Negative [facility] Laboratory - Chemistry and C hemistry - challengeOrdered By: Dr. Eli on 07-25-2022 ALP [Catalytic activity/Vol] 97 U/L 45-117 [facility] ALT [Catalytic activity/Vol] 28 U/L 16-61 [facility] CO2 [Moles/Vol] 27.0 mmol/L 21.0-32.0 [facility] Globulin (S) [Mass/Vol] 3.4 g/dL 2.2-4.2 [facility] Lipase [Catalytic activity/Vol] 184 U/L 73-393 [facility] Urea nitrogen/Creatinine [Mass ratio] 16.8 mg/mg 10-20 [facility] - Hematology and Cell countsOrdered By: Dr. Eli on 07-25-2022 Erythrocyte distribution width (RBC) [Entitic vol] 50.4 fL 35.1-43.9 [facility] Erythrocyte distribution width (RBC) [Ratio] 15.8 % 11.6-14.6 [facility] Immature granulocytes/100 WBC (Bld) 0.600 % 0.0-0.9 [facility] Comment on above: IG% - Immature Granu locytes (promyelocytes, myelocytes and metamyelocytes) > 1% indicates that a LEFT SHIFT is Present. MCH (RBC) [Entitic mass] 28.1 pg 27.0-32.0 [facility] Nucleated RBC/100 WBC (Bld) [Ratio] 0 % 0-5 [facility] MCHC Auto (RBC) [Mass/Vol]Or dered By: Dr. Eli on 07-25-2022 MCHC (RBC) [Mass/Vol] 32.2 g/dL 32-[address] [facility] Mucus LM Ql (Urine sed)Order ed By: Dr. Eli on 07-25-2022 Mucus Ql (Urine sed) 0 SEEN /hpf [facility] Nitrite Test strip Ql (U)Ord ered By: Dr. Eli on 07-25-2022 Nitrite Ql (U) Negative Negative [facility] No Panel InformationOrdered By: Dr. Eli on 07-25-2022 Estimated Creatinine Clearance Calc 30.36 ml/min [facility] Estimated GFR (MDRD) Amer 47 mL/min >60 [facility] Comment on above: GFR Calc Estimated GFR (MDRD) Non-Af Amer 39 mL/min >60 [facility] Comment on above: Non- GFR Calc No Panel InformationOrdered By: Barney Eli on 07-25-2022 3.4 g/dL 2.2-4.2 [facility] 184 U/L 73-393 [facility] 97 U/L 45-117 [facility] 28 U/L 16-61 [facility] Platelets bldOrdered By: Dr. Eli on 07-25-2022 Platelets (Bld) [#/Vol] 435 10*3/uL 150-450 [facility] Protein Test strip Ql (U)Ord ered By: Dr. Eli on 07-25-2022 Protein Ql (U) 30 mg/dl Negative [facility] Serum or plasma albumin jenna urement (mass/volume)Ordered By: Dr. Eli on 07-25-2022 Albumin [Mass/Vol] 4.1 g/dL 3.2-5.0 [facility] Serum or plasma albumin/glob ulin mass ratioOrdered By: Dr. Eli on 07-25-2022 Albumin/Globulin [Mass ratio] 1.2 {ratio} 0.9-2.4 [facility] Serum or plasma calcium jenna urement (mass/volume)Ordered By: Dr. Eli on 07-25-2022 Calcium [Mass/Vol] 10.5 mg/dL 8.5-10.1 [facility] Serum or plasma creatinine m easurement (mass/volume)Ordered By: Dr. Eli on 07-25-2022 Creatinine [Mass/Vol] 1.79 mg/dL 0.70-1.[address] [facility] Comment on above: The validity of the calculated GFR & GFRAA in patients over 70 years has not been determined. Clinical correlation is essential. Serum or plasma urea nitroge n measurement (mass/volume)Ordered By: Dr. Eli on 07-25-2022 Urea nitrogen [Mass/Vol] 30 mg/dL 7-18 [facility] Squamous epithelial cells de tection in urine sediment by light microscopyOrdered By: Dr. Eli on 07-25-2022 Epithelial cells.squamous LM Ql (Urine sed) 0 SEEN /hpf 0-5 [facility] Thin prep Papanicolaou smear with manual screeningOrdered By: Dr. Eli on 07-25-2022 Thin prep Papanicolaou smear with manual screening 28 U/L 15-37 [facility] Thin prep Papanicolaou smear with manual screening 6 5-15 [facility] Urine blood detectionOrdered By: Dr. Eli on 07-25-2022 RBC Ql (U) Negative Negative [facility] RBC Ql (U) 0 SEEN /hpf 0-5 [facility] Urine clarityOrdered By: Dr. Eli on 07-25-2022 Clarity (U) Clear Clear [facility] Urine color determinationOrd ered By: Dr. Eli on 07-25-2022 Color (U) Yellow Yellow [facility] Urine glucose detectionOrder ed By: Dr. Eli on 07-25-2022 Glucose Ql (U) Normal mg/dl Normal [facility] Urine leukocyte esterase det ection by dipstickOrdered By: Dr. Eli on 07-25-2022 Leukocyte esterase Test strip Ql (U) 25 /ul Negative [facility] Urine pHOrdered By: Dr. Cristiano urbano on 07-25-2022 pH (U) 6.5 [pH] 5.0 - 8.0 [facility] Urine sediment bacteria coun t by microscopy (number/high power field)Ordered By: Dr. Eli on 07-25-2022 Bacteria LM.HPF (Urine sed) [#/Area] 0 /[HPF] None Seen [facility] Urine specific gravity measu rementOrdered By: Dr. Eli on 07-25-2022 Specific gravity (U) [Rel density] 1.015 1.002-1.030 [facility] Urobilinogen Auto test strip Ql (U)Ordered By: Dr. Eli on 07-25-2022 Urobilinogen Ql (U) Normal mg/dl Normal [facility] CNPNon 07-14-2022 [facility] ([facility] BETTE CLEMENTS ([id number]) 1945 M Date Time Provider Department 07/14/22 [...] he wishes to go forward with biopsy [place] or [place] I did already talk in detail about this being a possibility so he was knows but was going to think about it. Aren Mcarthur, [place], [place], CECILIA Carter LPN 07/14/2022 11:03 AM Signed Called patient. Verified name and date of . Patient informed and verbalizes understanding. States he has thought about it and wants to use Dr. Merida with [facility]. Reports his health is poor and is followed primarily by providers at [facility]. Lyubov Raul HUITRON Allergies As of Date: 07/14/2022 Noted Allergy [...] specific antigen (PSA) [R97.20] Order(s):PROSTATE BIOPSY BLADE [[id number]] Order #: [id number] Prescriptions as of 07/14/2022 - mirtazapine (REMERON) 15 mg tablet Take 15 mg by mouth daily at bedtime. - ipratropium 20 mcg-albuterol 100 mcg (COMBIVENT RESPIMAT) 20-100 mcg/actuation inhaler NEEDED - fluticasone (FLONASE) 50 mcg/actuation nasal spray Use 1 [place] in each nostril once daily. - verapamil [...] instructed every 6 hours as needed. - Vjenmmqxlnm-Dzvnctgfk-A it C-Mn (GLUCOSAMINE CHONDROITIN MAXSTR) 500-400 mg [...] [Z85.048] 0 (more content not included)... Normal [facility] ISOPSA ASSAY FOR UROLOGY USE ONLYon 07-13-2022 Interpretation IsoPSA test was not performed, as the test has not been validated in patients with tPSA >100.0ng/mL. Test Performed by [employer], [address] [place] [id number] [facility] IsoPSA Not performed [facility] TPSA Results >100.0 [facility] ISOPSA ASSAY FOR UROLOGY USE ONLYon 07-10-2022 INTERPRETATION Normal [facility] Comment on above: Order Comment: Speci men Type: BLOOD SPECIMEN Ordering Facility: [facility] Address: [address] [place] [id number] Result Comment: IsoP SA test was not performed, as the test has not been validated in patients with tPSA >100.0ng/mL. Test Performed by [employer], [id number] [address] Performed By: #### I SOPSA #### [facility] CLIA [id number] [facility] [facility] [place] [id number] ISOPSA INDEX Not performed Normal [facility] Comment on above: Order Comment: Speci men Type: BLOOD SPECIMEN Ordering Facility: [facility] Address: [address] [place] [address] Performed By: #### I SOPSA #### [employer] [facility] CLIA [id number] [address] [place], [place] [address] [place] [id number] TPSA RESULTS >100.0 Normal [facility] Comment on above: Order Comment: Speci men Type: BLOOD SPECIMEN Ordering Facility: [facility] Address: [address] [place] [address] Performed By: #### I SOPSA #### [facility] CLIA [id number] [address] [place], [place] [id number] UA DIP, URINE (POC)on 2022 BILIRUBIN UA (POCT) Negative Negative [facility] CLARITY UA (POCT) Clear [facility] COLOR UA (POCT) Yellow [facility] GLUCOSE UA (POCT) Negative Negative mg/dL [facility] HEMOGLOBIN/BLOOD UA (POCT) Negative Negative [facility] KETONE UA (POCT) Negative Negative mg/dL [facility] LEUKOCYTES UA (POCT) Negative Negative [facility] NITRITE UA (POCT) Negative Negative [facility] PH UA (POCT) 5.5 4.5 - 8.0 [facility] Protein Ql (U) Negative Negative mg/dL [facility] SPECIFIC GRAVITY UA (POCT) 1.020 1.005 - 1.030 [facility] UROBILINOGEN UA (POCT) 0.2 E.U./dL Dolores l E.U./dL [facility] Absolute lymphocyte countOrd ered By: Dr. Sanchez on 07-06-2022 Lymphocytes Auto (Unsp spec) [#/Vol] 1.10 10*3/uL 0.83-4.51 [facility] Basophil percentageOrdered B y: Dr. Sanchez on 07-06-2022 Basophils/100 WBC (Bld) 1.1 % 0-1 [facility] Bilirubin [Mass/Vol] 0.60 mg/dL 0.20-1.00 [facility] Comment on above: For patients on eltr ombopag therapy, use of Dimension [place] TBIL is not recommended. Chloride [Moles/Vol] 104 mmol/L 98-107 [facility] Eosinophils/100 WBC (Bld) 9.0 % 0-5 [facility] Glucose [Mass/Vol] 101 mg/dL 74-106 [facility] Comment on above: Fasting Glucose resu lt from 100 to 125 mg/dL suggests IMPAIRED HOMEOSTASIS per A.D.A. criteria. Neutrophils (Bld) [#/Vol] 6.0 10*3/uL 2.0-7.7 [facility] Neutrophils/100 WBC (Bld) 70.0 % 47-70 [facility] Potassium [Moles/Vol] 4.1 mmol/L 3.5-5.[address] [facility] Protein [Mass/Vol] 7.0 g/dL 6.4-8.2 [facility] Sodium [Moles/Vol] 139 mmol/L 136-145 [facility] WBC (Bld) [#/Vol] 8.5 10*3/uL 4.4-11.0 [facility] Blood erythrocytes count (nu mber/volume)Ordered By: Dr. Sanchez on 07-06-2022 RBC (Bld) [#/Vol] 4.92 10*6/uL 4.6-6.2 [facility] Blood hemoglobin measurement (mass/volume)Ordered By: Dr. Sanchez on 07-06-2022 Hemoglobin (Bld) [Mass/Vol] 13.5 g/dL 13.0-16.5 [facility] Blood lymphocytes/100 leukoc ytesOrdered By: Dr. Sanchez on 07-06-2022 Lymphocytes/100 WBC (Bld) 12.9 % 19-41 [facility] Blood monocytes/100 leukocyt esOrdered By: Dr. Sanchez on 07-06-2022 Monocytes/100 WBC (Bld) 6.8 % 0-10 [facility] Blood platelet mean volumeOr dered By: Dr. Sanchez on 07-06-2022 Platelet mean volume (Bld) [Entitic vol] 10.8 fL 6.2-12.0 [facility] Determination of erythrocyte mean corpuscular volume (MCV)Ordered By: Dr. Sanchez on 07-06-2022 MCV (RBC) [Entitic vol] 87.2 fL 80-94 [facility] Hematocrit Auto (Bld) [Volum e fraction]Ordered By: Dr. Sanchez on 07-06-2022 Hematocrit (Bld) [Volume fraction] 42.9 % 40-54 [facility] - Chemistry and C hemistry - challengeOrdered By: Dr. Sanchez on 07-06-2022 ALP [Catalytic activity/Vol] 88 U/L 45-117 [facility] ALT [Catalytic activity/Vol] 24 U/L 16-61 [facility] CO2 [Moles/Vol] 28.0 mmol/L 21.0-32.0 [facility] Globulin (S) [Mass/Vol] 3.4 g/dL 2.2-4.2 [facility] Urea nitrogen/Creatinine [Mass ratio] 16.8 mg/mg 10-20 [facility] - Hematology and Cell countsOrdered By: Dr. Sanchez on 07-06-2022 Erythrocyte distribution width (RBC) [Entitic vol] 50.2 fL 35.1-43.9 [facility] Erythrocyte distribution width (RBC) [Ratio] 15.7 % 11.6-14.6 [facility] Immature granulocytes/100 WBC (Bld) 0.200 % 0.0-0.9 [facility] Comment on above: IG% - Immature Granu locytes (promyelocytes, myelocytes and metamyelocytes) > 1% indicates that a LEFT SHIFT is Present. MCH (RBC) [Entitic mass] 27.4 pg 27.0-32.0 [facility] Nucleated RBC/100 WBC (Bld) [Ratio] 0 % 0-5 [facility] MCHC Auto (RBC) [Mass/Vol]Or dered By: Dr. Sanchez on 07-06-2022 MCHC (RBC) [Mass/Vol] 31.5 g/dL 32-[address] [facility] No Panel InformationOrdered By: Dr. Sanchez on 07-06-2022 Estimated GFR (MDRD) Amer 54 mL/min >60 [facility] Comment on above: GFR Calc Estimated GFR (MDRD) Non-Af Amer 44 mL/min >60 [facility] Comment on above: Non- GFR Calc Prostate Specific Antigen Screen 158.00 ng/mL 0.00-4.00 [facility] Comment on above: This test was perfor med using the TPSA assay method for theTrot chemistry system. Values obtained with differentassay methods cannot be used interchangably.When changing PSA assays in the course of monitoring apatient, additional sequential testing should be carriedout to confirm baseline values. Platelets bldOrdered By: Dr. Sanchez on 07-06-2022 Platelets (Bld) [#/Vol] 392 10*3/uL 150-450 [facility] Serum or plasma albumin jenna urement (mass/volume)Ordered By: Dr. Sanchez on 07-06-2022 Albumin [Mass/Vol] 3.6 g/dL 3.2-5.0 [facility] Serum or plasma albumin/glob ulin mass ratioOrdered By: Dr. Sanchez on 07-06-2022 Albumin/Globulin [Mass ratio] 1.1 {ratio} 0.9-2.4 [facility] Serum or plasma calcium jenna urement (mass/volume)Ordered By: Dr. Sanchez on 07-06-2022 Calcium [Mass/Vol] 9.6 mg/dL 8.5-10.1 [facility] Serum or plasma creatinine m easurement (mass/volume)Ordered By: Dr. Sanchez on 07-06-2022 Creatinine [Mass/Vol] 1.61 mg/dL 0.70-1.[address] [facility] Comment on above: The validity of the calculated GFR & GFRAA in patients over 70 years has not been determined. Clinical correlation is essential. Serum or plasma urea nitroge n measurement (mass/volume)Ordered By: Dr. Sanchez on 07-06-2022 Urea nitrogen [Mass/Vol] 27 mg/dL 7-18 [facility] Thin prep Papanicolaou smear with manual screeningOrdered By: Dr. Sanchez on 07-06-2022 Thin prep Papanicolaou smear with manual screening 14 U/L 15-37 [facility] Thin prep Papanicolaou smear with manual screening 7 5-15 [facility] Basophil percentageOrdered B y: Dr. Rodríguez on 05-19-2022 Creatinine [Mass/Vol] 1.1 mg/dL 0.70-1.[address] [facility] No Panel InformationOrdered By: Dr. Rodríguez on 05-19-2022 Bedside Estimated GFR (eGFR) > 60.0000 mL/min >60 [facility] No Panel InformationOrdered By: Dr. Sanchez on 03-25-2022 Miscellaneous Test See comment [facility] Comment on above: TEST RESULT LIMITSBe nzodiazepine Conf, MS, UR Benzodiazepines Negative Saktnb=300 TESTING PERFORMED AT [facility]. ORIGINAL REPORT ON FILE IN LAB CONTAINS ADDITIONAL TEST SITE INFORMATION. Laboratory - Drug toxicology on 12-29-2021 Amphetamines Ql (U) Negative <1000 ng/mL [facility] Work Phone: Benzodiazepines Ql (U) Negative < 200 ng/mL [facility] Work Phone: Cannabinoids Screen Ql (U) Negative < 50 ng/mL [facility] Work Phone: Cocaine Ql (U) Negative < 300 ng/mL [facility] Work Phone: Opiates Ql (U) Negative < 300 ng/mL [facility] Work Phone: No Panel Informationon 12-29 MDMA (Ecstasy) Screen Negative < 500 ng/mL [facility] Work Phone: Urine Barbiturates Screen Negative < 200 ng/mL [facility] Work Phone: Urine Drug Screen Comment [facility] Work Phone: Comment on above: CONFIRMATORY [...] Urine Methadone Screen Negative < 300 ng/mL [facility] Work Phone: Urine Benzodiazepine Confirmation Negative Dekxsa=[phone] [facility] Work Phone: Comment on above: Performed at: [facility] [id number] [place], [place] [id number] Director: Belle Alicea PhD, Phone: [phone] Urine phencyclidine (PCP) de tectionon 12-29-2021 Phencyclidine Ql (U) Negative < 25 ng/mL [facility] Work Phone: ACT,Whole Bloodon 06-07-2020 ACT,Whole Blood 202 s High 90-134 [facility] Comment on above: Result Comment: ACTB O Performed by [employer] ID: [id number] [place], [place] ACT testing is not intended for patients taking aprotonin, patients with hematocrits of <20% or >55%, patients using other types of anticoagulation medications, and patients with Lupus Anticoagulant. Performed By: #### A CTBO #### [facility] [employer] [address] [place] [id number] ACT,Whole Blood 271 s High 90-134 [facility] Comment on above: Result Comment: ACTB O Performed by [employer] ID: [id number] [place], [place] ACT testing is not intended for patients taking aprotonin, patients with hematocrits of <20% or >55%, patients using other types of anticoagulation medications, and patients with Lupus Anticoagulant. Performed By: #### A CTBO #### [facility] [address] [place] [address] Activated clotting timeon Activated Clotting Time 202 s High 90 - 134 s [place], [place] Comment on above: ACTBO Performed by [employer] ID: [id number] [place], [place] ACT testing is not intended for patients taking aprotonin, patients with hematocrits of <20% or >55%, patients using other types of anticoagulation medications, and patients with Lupus Anticoagulant. Activated Clotting Time 271 s High 90 - 134 s [place], [place] Comment on above: ACTBO Performed by [employer] ID: [id number] [place], [place] ACT testing is not intended for patients taking aprotonin, patients with hematocrits of <20% or >55%, patients using other types of anticoagulation medications, and patients with Lupus Anticoagulant. Basic Metabolic Panelon Anion gap [Moles/Vol] 10 Normal [facility] Comment on above: Performed By: #### B MP3 #### [facility] [address], [place] Calcium [Mass/Vol] 9.7 mg/dL Normal 8.4-10.4 [facility] Comment on above: Performed By: #### B MP3 #### [facility] [address] [place] [address] CO2 [Moles/Vol] 25 mmol/L Normal 22-30 [facility] Comment on above: Performed By: #### B MP3 #### [facility] [address] [place] [address] Glucose [Mass/Vol] 121 mg/dL High 70-100 [facility] Comment on above: Performed By: #### B MP3 #### [facility] [address] [place] [address] Urea nitrogen [Mass/Vol] 22 mg/dL High 7-20 [facility] Comment on above: Performed By: #### B MP3 #### [facility] [address] [place] [address] Creatinine [Mass/Vol] 1.30 mg/dL High 0.52-1.25 [facility] Comment on above: Performed By: #### B MP3 #### [facility] [address] [place] [address] GFR/1.73 sq M predicted among blacks MDRD (S/P/Bld) [Vol rate/Area] 61.4 mL/min/{1.73_m2} Normal >60 [facility] Comment on above: Performed By: #### B MP3 #### [facility] [address] [place] [address] GFR/1.73 sq M predicted among non-blacks MDRD (S/P/Bld) [Vol rate/Area] 52.9 mL/min/{1.73_m2} Abnormal >60 [facility] Comment on above: Result Comment: KDIG O [...] secretion. Performed By: #### B MP3 #### [facility] [address], [place] Chloride [Moles/Vol] 107 mmol/L Normal 98-107 [facility] Comment on above: Performed By: #### B MP3 #### [facility] [address] [place] [address] Potassium [Moles/Vol] 3.6 mmol/L Normal 3.5-5.1 [place], [place] Comment on above: Performed By: #### B MP3 #### [facility] [address] [place], [place] Sodium [Moles/Vol] 142 mmol/L Normal 135-145 [place], [place] Comment on above: Performed By: #### B MP3 #### [facility] [address], [place] Anion gap [Moles/Vol] 10 mmol/L [place], [place] Calcium [Mass/Vol] 9.7 mg/dL 8.4 - 10. 4 mg/dL [place], [place] Chloride [Moles/Vol] 107 mmol/L 98 - 10 7 mmol/L [place] CO2 [Moles/Vol] 25 mmol/L 22 - 30 mmol/L [place] Creatinine [Mass/Vol] 1.3 mg/dL High 0.52 - 1.25 mg/dL [place], [place] EGFR IF NonAfrican Jordanian 52.9 mL/min Abnormal >60 [place], [place] Comment on above: KDIGO guidelines pro [...] MDRD (S/P/Bld) [Vol rate/Area] 61.4 mL/min/{1.73_m2} >60 [place], [place] Glucose [Mass/Vol] 121 mg/dL High 70 - 100 mg/dL [place], [place] Interpretation and review of laboratory results Abnormal [place], [place] Urea nitrogen [Mass/Vol] 22 mg/dL High 7 - 20 mg/dL [place], [place] Test Performed by [facility], [address] [place] [address] [place], [place] Diagnostic Cardiac Lather Apprentice Procedureon 06-07-2020 [facility] -- CARDIAC CATHETERIZATION Patient: Bette Clements [...] stent ( 2.75 mm- 2.5 mm) 3. FOUNTAIN PEN TURNER of the RCA with recanalized proximal RCA [...] is a residual 0% stenosis with TI MT grade 3 flow (brisk flow). LCx posterolateral [...] signed by Denis Rodriguez MD 06/07/2020 11:22 [facility] [place] Kevin Owen Incoming Cardiology Results From Mono/Richard - 06/07/2020 11:22 AM EST [facility] -- CARDIAC CATHETERIZATION Patient: Bette [...] stent ( 2.75 mm- 2.5 mm) 3. FOUNTAIN PEN TURNER of the RCA with recanalized proximal RCA [...] is a residual 0% stenosis with TI MT grade 3 flow (brisk flow). LCx posterolateral [...] signed by Denis Rodriguez MD 06/07/2020 11:22 [facility] 06-07-2020 Interpretation and review of laboratory results Abnormal [facility] Test Performed by [facility], [address] [place] [address] [facility] TEO RO CNTHERAPYon 06-20-2019 CNTHERAPY OT/PT/Speech Visit ([facility]) BETTE CLEMENTS ([id number]) 1945 M Date Time Provider Department 06/20/19 1:45 PM KIKI MCKEE (OT) [facility] Date Time Provider Department Center 06/20/2019 1:45 PM [id number] MCKEE *[facility] Reason for Visit: OT Discharge [750] Primary [...] * Inhale 1 Puff as instructed e* [id number]-RFJRWGVDM-Y IT C-M* Take 2 capsules by mouth once* PIROXICAM 10 MG CAPSULE Take 1 capsule by mouth once * NITROGLYCERIN 0.4 MG SUBLINGU* Dissolve 1 tablet under the t* Patient not taking: Reported on 05/09/2019 GARLIC CAPSULE Take one(1) capsule daily. OTC NUTRITIONAL SUPPLEMENT red yeast rice 1200 mg daily Progress Notes: Kiki Mckee OT/Mandeep 06/20/2019 2:09 PM Signed Episode Visit Count: [...] to 06/20/2019 and treatment included: Therapeutic exercise, Self-snf management, Modalities and Custom orthosis fabrication. Patient [...] Left Limitation Thumb AROM: Left Limitation Strength: Wharf Builder Position 2;Pinch Meter Hand Strength L Wharf Builder Position 2 (lbs): 60 lbs L Lateral [...] and opposition 3: with medium soft putty renderer digit ext roll digit flexion and tripod [...] monitored throughout treatment. Billing: Mildred: Therapeutic Exercise (09004): 1:1 time:30 minutes (2 units: 23-37 mins) Fluidotherapy (01666) 1 unit(s) Total time: 40 minutes Kiki Mckee OT/KATH Normal [facility] PROGRESSon 06-20-2019 PROGRESS HNO ID: [id number] Author: Kiki Mckee Service: ? Author Type: [...] to 06/20/2019 and treatment included: Therapeutic exercise, Self-snf management, Modalities and Custom orthosis fabrication. Patient [...] Left Limitation Thumb AROM: Left Limitation Strength: Wharf Builder Position 2;Pinch Meter Hand Strength L Wharf Builder Position 2 (lbs): 60 lbs L Lateral [...] and opposition 3: with medium soft putty renderer digit ext roll digit flexion and tripod [...] monitored throughout treatment. Billing: Mildred: Therapeutic Exercise (96619): 1:1 time:30 minutes (2 units: 23-37 mins) Fluidotherapy (57039) 1 unit(s) Total time: 40 minutes Kiki Mckee OT/[facility] CNTHERAPYon 05-30-2019 CNTHERAPY OT/PT/Speech Visit ([facility]) BETTE CLEMENTS ([id number]) 1945 M Date Time Provider Department 05/30/19 1:45 PM KIKI MCKEE (OT) [facility] Date Time Provider Department Center 05/30/2019 1:45 PM [id number] [facility]CK[facility] Reason for Visit: Occupational Therapy [504] Primary [...] * Inhale 1 Puff as instructed e* GYNTRKOZEDS-IRSPBRUKO-G IT C-M* Take 2 capsules by mouth [...] MEASURES WITH LEVEL OF FUNCTION: Hand Strength: Wharf Builder Position 2;Pinch Meter Hand Strength R Wharf Builder Position 2 (lbs): 82 lbs L Wharf Builder Position 2 (lbs): 55 lbs R Lateral [...] monitored throughout treatment. Billing: Mildred: Therapeutic Exercise (06197): 1:1 time:35 minutes (2 units: 23-37 mins) Fluidotherapy (01038) 1 unit(s) Total time: 45 minutes Kiki Mckee OT/KATHHT Normal [facility] PROGRESSon 05-30-2019 PROGRESS HNO ID: [id number] Author: Kiki Mckee Service: ? Author Type: [...] MEASURES WITH LEVEL OF FUNCTION: Hand Strength: Wharf Builder Position 2;Pinch Meter Hand Strength R Wharf Builder Position 2 (lbs): 82 lbs L Wharf Builder Position 2 (lbs): 55 lbs R Lateral [...] needs. Patient response monitored throughout treatment. Billing: Whately: Therapeutic Exercise (25454): 1:1 time:35 minutes (2 units: 23-37 mins) Fluidotherapy (77040) 1 unit(s) Total time: 45 minutes Kiki Mckee OT/[facility] CNTHERAPYon 05-23-2019 CNTHERAPY OT/PT/Speech Visit ([facility]) BETTE CLEMENTS ([id number]) 1945 M Date Time Provider Department 05/23/19 1:45 PM KIIK MCKEE (OT) [facility] Date Time Provider Department Center 05/23/2019 1:45 PM [id number] MCKEE [facility] Reason for Visit: Occupational Therapy [504] Primary [...] * Inhale 1 Puff as instructed e* XUWNFGNULLS-DGKCGZLJI-A IT C-M* Take 2 capsules by mouth [...] splint 4: scar massage 5: soft putty renderer digit extension roll digit flexion and tripod [...] needs. Patient response monitored throughout treatment. Billing: Levy: Therapeutic Exercise (04399): 1:1 time:30 minutes (2 units: 23-37 mins) Fluidotherapy (40428) 1 unit(s) Total time: 40 minutes Kiki Mckee OT/ELVA Annotated image of MARGUERITE HAND THERAPUTTY EXERCISES PG 1 last updated by Kiki Mckee on 05/23/2019 1:47 PM Annotated image of OT HAND THERAPUTTY EXERCISES PG 2 last updated by Kiki Mckee on 05/23/2019 1:47 PM [facility] PROGRESSon 05-23-2019 PROGRESS HNO ID: [id number] Author: Kiki Mckee Service: ? Author Type: [...] splint 4: scar massage 5: soft putty renderer digit extension roll digit flexion and tripod [...] monitored throughout treatment. Billing: Mildred: Therapeutic Exercise (61179): 1:1 time:30 minutes (2 units: 23-37 mins) Fluidotherapy (16510) 1 unit(s) Total time: 40 minutes Kiki Mckee OT/OLMAN [facility] CNTHERAPYon 05-16-2019 CNTHERAPY OT/PT/Speech Visit ([facility]) BETTE CLEMENTS ([id number]) 1945 M Date Time Provider Department 05/16/19 1:45 PM KIKI MCKEE (OT) [facility] Date Time Provider Department Center 05/16/2019 1:45 PM [id number] MCKEE [facility] Reason for Visit: Occupational Therapy [504] Primary [...] * Inhale 1 Puff as instructed e* QKMGMNKYHXS-LDMTUORSG-T IT C-M* Take 2 capsules by mouth once* PIROXICAM 10 MG CAPSULE Take 1 capsule by mouth once * NITROGLYCERIN 0.4 MG SUBLINGU* Dissolve 1 tablet under the t* Patient not taking: Reported on 05/09/2019 GARLIC CAPSULE Take one(1) capsule daily. OTC NUTRITIONAL SUPPLEMENT red yeast rice 1200 mg daily Progress Notes: Kiki Mckee, OT/L 05/16/2019 2:28 PM Signed Episode Visit Count: [...] using during heavier activities 5: soft sponge roller picker renderer an manipulate 6: 1# weight wrist flex, [...] needs. Patient response monitored throughout treatment. Billing: Levy: Therapeutic Exercise (60750): 1:1 time:30 minutes (2 units: 23-37 mins) Fluidotherapy (33414) 1 unit(s) Total time: 40 minutes Kiki Mckee OT/LCHT Annotated image of OT HAND WRIST STRENGTHENING last updated by Kiki Mckee on 05/16/2019 2:11 PM [facility] PROGRESSon 05-16-2019 PROGRESS HNO ID: [id number] Author: Kiki Mckee Service: ? Author Type: [...] using during heavier activities 5: soft sponge roller picker renderer an manipulate 6: 1# weight wrist flex, [...] needs. Patient response monitored throughout treatment. Billing: Whately: Therapeutic Exercise (44649): 1:1 time:30 minutes (2 units: 23-37 mins) Fluidotherapy (70127) 1 unit(s) Total time: 40 minutes Kiki Mckee OT/[facility] CNTHERAPYon 05-09-2019 CNTHERAPY OT/PT/Speech Visit ([facility]) BETTE CLEMENTS ([id number]) 1945 M Date Time Provider Department 05/09/19 1:45 PM KIKI MCKEE (OT) [facility] Date Time Provider Department Center 05/09/2019 1:45 PM [id number] MCKEE [facility] Reason for Visit: OT EVAL [748] Visit [...] * Inhale 1 Puff as instructed e* XXHRAIUFZDA-GATFOFEWG-I IT C-M* Take 2 capsules by mouth [...] That Will Oversee The Plan Of Care: eVnu Swanson Start of Care Date: 04/07/19 Onset Date: 04/07/19 Plan of Care Certification Date: 05/09/19 Patient Identified by Name and Date of : Yes [facility] OCCUPATIONAL THERAPY EVALUATION [...] Planned Treatment Interventions: Custom orthosis fabrication;Therapeutic exercise;Manual therapy;Self-snf management;ModalitiesFl uidotherapy PLAN FOR NEXT VISIT: trial [...] was provided in selection of appropriate interventions. Self-Jail Management: 1: instructed in surgery and activity precautions 2: instructed in use of heat and or ice with precautions Skilled Intervention: Skilled judgment in the selection of proper modification for activity of daily living/home management based on clinical presentation, deficits, and needs. Billing: Mildred: Evaluation - Moderate Complexity (96887) Self Care / Home Management (15627): 1:1 time:10 minutes (1 unit: 8-22 mins) Therapeutic Exercise (72431): 1:1 time:10 minutes (1 unit: 8-22 mins) Custom made forearm based thumb spica splint Total time: 55 minutes Kiki Mckee OT/ELVA Annotated image of OT HAND POST-OP EX'S PG4-WRIST last updated by Kiki Mckee on 05/09/2019 2:17 PM Annotated image of OT HAND TENDON GLIDING THUMB EX'S last updated by Kiki Mckee on 05/09/2019 2:17 PM [facility] PROGRESSon 05-09-2019 PROGRESS HNO ID: [id number] Author: Kiki Mckee Service: ? Author Type: Occupational Therapist Type: Progress Notes Filed: 05/09/2019 3:57 PM Note Text: Episode Visit Count: 1 Therapist That Will Oversee The Plan Of Care: Venu Swanson Start of Care Date: 04/07/19 Onset Date: 04/07/19 Plan of Care Certification Date: 05/09/19 Patient Identified by Name and Date of : Yes [facility] OCCUPATIONAL THERAPY EVALUATION [...] Planned Treatment Interventions: Custom orthosis fabrication;Therapeutic exercise;Manual therapy;Self-snf management;ModalitiesFl uidotherapy PLAN FOR NEXT VISIT: trial fluido soft sponge Patient demonstrates good understanding of plan of care and treatment. The above goals and plan of care were discussed and agreed upon by patient/family. SUBJECTIVE: Bette Clemetns is a 74 year old male seen [...] was provided in selection of appropriate interventions. Self-Jail Management: 1: instructed in surgery and activity precautions 2: instructed in use of heat and or ice with precautions Skilled Intervention: Skilled judgment in the selection of proper modification for activity of daily living/home management based on clinical presentation, deficits, and needs. Billing: Whately: Evaluation - Moderate Complexity (75240) Self Care / Home Management (22753): 1:1 time:10 minutes (1 unit: 8-22 mins) Therapeutic Exercise (36538): 1:1 time:10 minutes (1 unit: 8-22 mins) Custom made forearm based thumb spica splint Total time: 55 minutes Kiki Mckee OT/OLMAN [facility] PROGRESS HNO ID: [id number] Author: Karolina Nelson) LISSETTE Culp Service: ? Author Type: Clinical Hydrogen Power Plant Manager Type: Progress Notes Filed: 05/09/2019 12:57 PM Note Text: NAME:Bette Destiny Clements DATE: May 09, 2019 [facility]#: [id number] Upper Extremity X-Ray(s): Hand, left COMPLETED TECH ID SIGN: KAROLINA CULP [facility] XR HAND 3V PA/LAT/OBL LTon 0 05-09-2019 XR HAND 3V PA/LAT/OBL LT * * *Final Repo rt* * * DATE OF EXAM: May 09 2019 12:56PM ALEISHA 5345 - XR HAND 3V PA/LAT/OBL [...] Postsurgical change, as described. No acute process. Design Assembler: TENZIN Transcribe Date/Time: May 09 2019 2:14P Dictated by : JIMMY GUTIERREZ MD This examination was interpreted and the report reviewed and electronically signed by: JIMMY GUTIERREZ MD on May 09 2019 2:15PM EST [id number] [facility] ANES Eliezer 04-07-2019 ANES POST HNO ID: [id number] Author: Rhys Velazquez MD Service: Anesthesiology Author [...] 07, 2019 TIME: 10:35 AM PAGER/CONTACT #: [facility] ANES PREOPon 04-07-2019 ANES PREOP HNO ID: [id number] Author: Rhys Velazquez MD Service: Anesthesiology Author [...] Laterality Date - COLONOSCOP W/ OR W/O [facility] SPEC clean anastamosis, some radiation changes - COLONOSCOP W/ OR W/O [facility] SPEC 08/14/09 Colonoscopy [facility] inpt - COLONOSCOPY W/BX 09/21/07 - EGD W/O [facility] SPECIMEN W/BX 09/21/07 - EXCISION NOSE POLYP(S),SIMPLE [...] - Diabetes Father - Heart Paternal Grandfather MT'S - Diabetes Paternal Grandmother - Emphysema Maternal [...] instructed every 6 hours as needed. - Vmdvkmigzih-Nwfjxobzv-T it C-Mn (GLUCOSAMINE CHONDROITIN MAXSTR) 500-400 mg [...] (CLEOCIN) 600 mg INTRAVENOUS Pre-Op Once Shirley ([place]) Vetovitz - midazolam (PF) 2 mg injection (VERSED) 2 mg INTRAVENOUS ONCE Dio Schwarz Allergies: ALLERGIES Allergen Reactions - Alcohol Hives [...] April 07, 2019 TIME: 6:57 AM CSN: [id number] [facility] NURSING PROGon 04-07-2019 NURSING PROG HNO ID: [id number] Author: Morena (Rn) TREVOR Henry Service: ? [...] 26.46 kg/m? .Pt tolerated procedure without difficulty. [facility] OPERATIVE NOon 04-07-2019 OPERATIVE NO HNO ID: [id number] Author: Barney Saldivar Service: Orthopaedic Surgery Author Type: Physician Type: Operative Report Filed: 04/07/2019 11:21 AM Note Text: OPERATIVE/PROCEDURE REPORT ? LOG ID: [id number] Surgery/Procedure Date: 04/07/2019 Incision/Procedure Start Time: 7:58 AM Incision Close/Procedure End Time: 9:32 AM Surgeon(s)/Proceduralis t(s) and Solar Sales Rep(s): Surgeon(s) and Role: * Barney Saldivar - Primary Physician Solar Sales Rep: Shirley Villarreal (Pa) ? Procedure(s): Left thumb, [...] with the Tevdek suture.? A number of [id number] from? the tendon were secured, and the [...] There were no residents or fellows available. nurse's assistant was important and patient transport, positioning the patient and arm board and tourniquet application. Soft tissue retraction throughout the case and manual manipulation of the thumb. Assistance with drilling and suture management. Passing of the tendon graft, final skin closure and splint and bandage application. SIGNATURE: Barney Saldivar MD PATIENT NAME: Bette Clements DATE: April 07, 2019 TIME: 11:14 AM PAGER/CONTACT #: [facility] PT EDon 04-07-2019 PT ED HNO ID: [id number] Author: Mikie Correa) TREVOR Cary Service: Nursing Author Type: Registered Nurse Type: [...] Signed By: Mikie Cary RN In Department: [facility] SUR[facility] PT ED HNO ID: [id number] Author: Mikie (Rn) TREVOR Cary Service: Nursing Author Type: Registered Nurse Type: [...] Signed By: Mikie Cary RN In Department: [facility] XR FLUOROSCOPYon 04-07-2019 XR FLUOROSCOPY * * *Final Report* * * DATE OF EXAM: Apr 07 2019 9:30AM [facility] 5513 - XR FLUOROSCOPY / PROCEDURE REASON: [...] for further discussion. IMPRESSION: As discussed above Design Assembler: TENZIN Transcribe Date/Time: Apr 07 2019 10:43A Dictated by : CHELE GASCA DO This examination was interpreted and the report reviewed and electronically signed by: CHELE GASCA DO on Apr 07 2019 10:44AM EST [id number] [facility] NURSING PROGon 03-06-2019 NURSING PROG HNO ID: [id number] Author: Jeri (Rn) TREVOR Pagan Service: ? [...] Pagan RN April 06, 2019 7:20 AM [facility] HOSPon 02-28-2019 HOSP Patient:Bette Clements MRN: Height:5' [...] mg tablet ipratropium-albuterol 20-100 mcg/Puff aero inhaler Jytpyizbpzz-Ezafomohe-Q it C-Mn (GLUCOSAMINE CHONDROITIN MAXSTR) 500-400 mg [...] Paxil [Paroxetine Hcl] Spiriva With Handihaler [Tiotropium [place]] tape [Other] Toprol Xl [Metoprolol] Zocor [Simvastatin] [...] h/o fever of unknown origin since the . It appears you were ok him staying on this for surgery prior to the previous cancellation. Charla Perez Ma 03/28/2019 9:26 AM Signed Alicia Castro (Aisha) Rebel Uribe 7 minutes ago (9:14 AM) Can you notify pt he can continue his Feldene pre-operatively and stop the Plavix 5 days prior to surgery as directed. Routing comment Shirley (Flora) Phil Castro (Aisha) Rebel 16 hours ago (4:25 PM) Yes, he can stay on his Feldene. Thanks, Shirley Pt notified of instructions and verbalized understanding. Charla Perez Ma Progress Notes ([facility]): Ronna Chu RN 03/24/2019 10:40 AM Signed Pt. scheduled for OT at [place] post -op [facility] arthroplasty instead of [facility] , and appt. rescheduled fro 05-09-18 in [place]. Called pt. to notify him, and appointment reminders mailed to pt. Ronna Chu RN 03/24/2019 10:45 AM Signed [facility] notified that pt. no longer needs OT appt. Normal [facility] PROGRESSon 02-28-2019 PROGRESS HNO ID: [id number] Author: LISSETTE Morrison (Ct) Service: ? Author Type: Clinical [employer] Power Plant Manager Type: Progress Notes Filed: 02/28/2019 1:16 PM Note Text: NAME:Bette Clements DATE: February 28, 2019 [facility]#: [id number] Upper Extremity X-Ray(s): Hand, left COMPLETED TECH ID SIGN: KAROLINA CULP [facility] XR HAND 3V PA/LAT/OBL LTon 1 XR HAND 3V PA/LAT/OBL LT * * *Final Repo rt* * * DATE OF EXAM: Feb 28 2019 1:18PM ALEISHA 5345 - XR HAND 3V PA/LAT/OBL LT / PROCEDURE REASON: [id number] * * * * Physician Interpretation * [...] Osteoarthrosis. No evidence of an inflammatory arthropathy. Design Assembler: PSCMelisa Transcribe Date/Time: Feb 28 2019 3:56P Dictated by : FRANCES RIBEIRO MD This examination was interpreted and the report reviewed and electronically signed by: FRANCES RIBEIRO MD on Feb 28 2019 3:57PM EST [id number] [facility] Office Visit: COPDon 017 Documentation of current medications (procedure) Done Invalid Interpretation Code [facility] Work Phone: Fall risk assessment No Invalid Interpretation Code [facility] Work Phone: Tobacco smoking status [facility] Never Invalid Interpretation Code [facility] Work Phone: Tobacco use [facility] Former smoker Invalid Interpretation Code [facility] Work Phone: Office Visit: shortness of b reathon 08-28-2016 Documentation of current medications (procedure) Done Invalid Interpretation Code [facility] Work Phone: Tobacco smoking status [facility] Never Invalid Interpretation Code [facility] Work Phone: Tobacco use [facility] Former smoker Invalid Interpretation Code [facility] Work Phone: Append: Pulmonary Rehab refe rralon 04-10-2016 Clinical consultation report (record artifact) [id number] Invalid Interpretation Code [facility] Work Phone: Office Visit: COPDon 016 Smoking cessation education (procedure) yes Invalid Interpretation Code [facility] Work Phone: Microbiology: Culture, Sputu mon 08-07-2015 Bacteria sputum culture . Invalid Interpretation Code [facility] Work Phone: Vital Signs Date Time Vital Sign Value Performing Clinician Facility 01-06-2025 16:09-0400 Body height 170.18 cm Jeremiah Mckeon [facility] Work Phone: 0(501)030-345959 [place] [address] 01-06-2025 16:09-0400 Body mass index (BMI) [Ratio] 21.2 kg/m2 Jeremiah Mckeon [facility] Work Phone: 3(820)341-497959 [place] [address] 01-06-2025 16:09-0400 Body temperature 97.1 [degF] Jeremiah Mckeon [facility] Work Phone: 8(978)202-999659 [place] [address] 01-06-2025 16:09-0400 Body weight 61.55 kg Jeremiah Mckeon [facility] Work Phone: 9(198)183-590659 [place] [address] 01-06-2025 16:09-0400 Diastolic blood pressure 85 mm[Hg] Jeremiah Mckeon [facility] Work Phone: 7(162)989-885759 [place] [address] 01-06-2025 16:09-0400 Heart rate 106 /min Jeremiah Mckeon [facility] Work Phone: 1(179)667-942359 [place] [address] 01-06-2025 16:09-0400 Respiratory rate 18 /min Jeremiah Mckeon [facility] Work Phone: 6(566)101-794359 [place] [address] 01-06-2025 16:09-0400 SaO2% (BldA) [Mass fraction] 98 % Jeremiah Mckeon [facility] Work Phone: 3(716)726-844659 [place] [address] 01-06-2025 16:09-0400 Systolic blood pressure 154 mm[Hg] Jeremiah Mckeon [facility] Work Phone: 1(106)160-445859 [place] [address] 09-27-2024 08:28-0400 Body mass index (BMI) [Ratio] 20.7 kg/m2 Tiffanie Carr [facility] Work Phone: [facility] 09-27-2024 08:28-0400 Body temperature 96.7 [degF] Tiffanie Carr [facility] Work Phone: [facility] 09-27-2024 08:28-0400 Body weight 59.87 kg Tiffanie Carr [facility] Work Phone: [facility] 09-27-2024 08:28-0400 Diastolic blood pressure 88 mm[Hg] Tiffanie Carr [facility] Work Phone: [facility] 09-27-2024 08:28-0400 Heart rate 83 /min Tiffanie Carr [facility] Work Phone: [facility] 09-27-2024 08:28-0400 Respiratory rate 18 /min Tiffanie Carr [facility] Work Phone: [facility] 09-27-2024 08:28-0400 SaO2% (BldA) [Mass fraction] 97 % Tiffanie Carr [facility] Work Phone: [facility] 09-27-2024 08:28-0400 Systolic blood pressure 142 mm[Hg] Tiffanie Carr [facility] Work Phone: [facility] 08-11-2024 08:50-0400 Body temperature 97.8 [degF] Dr. Spenser Sanchez MD Work Phone: [facility] 08-11-2024 08:50-0400 Diastolic blood pressure 73 mm[Hg] Dr. Spenser Sanchez MD Work Phone: [facility] 08-11-2024 08:50-0400 Heart rate 94 /min Dr. Spenser Sanchez MD Work Phone: [facility] 08-11-2024 08:50-0400 Respiratory rate 18 /min Dr. Spenser Sanchez MD Work Phone: [facility] 08-11-2024 08:50-0400 SaO2% (BldA) [Mass fraction] 97 % Dr. Spenser Sanchez MD Work Phone: [facility] 08-11-2024 08:50-0400 Systolic blood pressure 139 mm[Hg] Dr. Spenser Sanchez MD Work Phone: [facility] 08-11-2024 03:09-0400 Inhaled oxygen flow rate 3 L/min Dr. Spenser Sanchez MD Work Phone: [facility] 08-10-2024 13:17-0400 Body height 170.[address] Spenser Sanchez MD Work Phone: [facility] 08-10-2024 13:17-0400 Body weight 60.[address] Spenser Sanchez MD Work Phone: [facility] 08-09-2024 19:50-0400 Body mass index (BMI) [Ratio] 21 kg/m2 Dr. Spenser Sanchez MD Work Phone: [facility] 08-09-2024 18:09-0400 Body temperature 98 [degF] Dr. Spenser Sanchez MD Work Phone: [facility] 08-09-2024 18:09-0400 Diastolic blood pressure 90 mm[Hg] Dr. Spenser Sanchez MD Work Phone: [facility] 08-09-2024 18:09-0400 Heart rate 68 /min Dr. Spenser Sanchez MD Work Phone: [facility] 08-09-2024 18:09-0400 Respiratory rate 14 /min Dr. Spenser Sanchez MD Work Phone: [facility] 08-09-2024 18:09-0400 SaO2% (BldA) [Mass fraction] 96 % Dr. Spenser Sanchez MD Work Phone: [facility] 08-09-2024 18:09-0400 Systolic blood pressure 174 mm[Hg] Dr. Spenser Sanchez MD Work Phone: [facility] 08-09-2024 16:28-0400 Body height 170.[address] Spenser Sanchez MD Work Phone: [facility] 08-09-2024 16:28-0400 Body mass index (BMI) [Ratio] 20.4 kg/m2 Dr. Spenser Sanchez MD Work Phone: [facility] 08-09-2024 16:28-0400 Body weight 59.[address] Spenser Sanchez MD Work Phone: [facility] 08-02-2024 10:13-0400 Body mass index (BMI) [Ratio] 21.7 kg/m2 Dr. Spenser Sanchez MD Work Phone: [facility] 08-02-2024 10:13-0400 Body weight 62.[address] Spenser Sanchez MD Work Phone: [facility] 08-02-2024 10:13-0400 Diastolic blood pressure 80 mm[Hg] Dr. Spenser Sanchez MD Work Phone: [facility] 08-02-2024 10:13-0400 Heart rate 86 /min Dr. Spenser Sanchez MD Work Phone: [facility] 08-02-2024 10:13-0400 Respiratory rate 20 /min Dr. Spenser Sanchez MD Work Phone: [facility] 08-02-2024 10:13-0400 SaO2% (BldA) [Mass fraction] 95 % Dr. Spenser Sanchez MD Work Phone: [facility] 08-02-2024 10:13-0400 Systolic blood pressure 144 mm[Hg] Dr. Spenser Sanchez MD Work Phone: [facility] 07-28-2024 14:51-0400 Body temperature 98.2 [degF] Dr. Spenser Sanchez MD Work Phone: [facility] 07-28-2024 14:51-0400 Diastolic blood pressure 90 mm[Hg] Dr. Spenser Sanchez MD Work Phone: [facility] 07-28-2024 14:51-0400 Heart rate 102 /min Dr. Spenser Sanchez MD Work Phone: [facility] 07-28-2024 14:51-0400 Respiratory rate 16 /min Dr. Spenser Sanchez MD Work Phone: [facility] 07-28-2024 14:51-0400 SaO2% (BldA) [Mass fraction] 93 % Dr. Spenser Sanchez MD Work Phone: [facility] 07-28-2024 14:51-0400 Systolic blood pressure 151 mm[Hg] Dr. Spenser Sanchez MD Work Phone: [facility] 07-28-2024 12:13-0400 Body height 170.[address] Spenser Sanchez MD Work Phone: [facility] 07-28-2024 12:13-0400 Body weight 60.[address] Spenser Sanchez MD Work Phone: [facility] 07-28-2024 06:00-0400 Body mass index (BMI) [Ratio] 20.8 kg/m2 Dr. Spenser Sanchez MD Work Phone: [facility] 07-28-2024 04:14-0400 Inhaled oxygen flow rate 3 L/min Dr. Spenser Sanchez MD Work Phone: [facility] 07-27-2024 15:43-0400 Body temperature 97.3 [degF] Dr. Spenser Sanchez MD Work Phone: [facility] 07-27-2024 15:43-0400 Diastolic blood pressure 78 mm[Hg] Dr. Spenser Sanchez MD Work Phone: [facility] 07-27-2024 15:43-0400 Heart rate 78 /min Dr. Spenser Sanchez MD Work Phone: [facility] 07-27-2024 15:43-0400 Respiratory rate 16 /min Dr. Spenser Sanchez MD Work Phone: [facility] 07-27-2024 15:43-0400 SaO2% (BldA) [Mass fraction] 98 % Dr. Spenser Sanchez MD Work Phone: [facility] 07-27-2024 15:43-0400 Systolic blood pressure 146 mm[Hg] Dr. Spenser Sanchez MD Work Phone: [facility] 07-27-2024 09:43-0400 Body height 170.[address] Spenser Sanchez MD Work Phone: [facility] 07-27-2024 09:43-0400 Body mass index (BMI) [Ratio] 22.5 kg/m2 Dr. Spenser Sanchez MD Work Phone: [facility] 07-27-2024 09:43-0400 Body weight 65.[address] Spenser Sanchez MD Work Phone: [facility] 07-18-2024 15:30-0400 Body temperature 99 [degF] Dr. Spenser Sanchez MD Work Phone: [facility] 07-18-2024 15:30-0400 Diastolic blood pressure 80 mm[Hg] Dr. Spenser Sanchez MD Work Phone: [facility] 07-18-2024 15:30-0400 Heart rate 68 /min Dr. Spenser Sanchez MD Work Phone: [facility] 07-18-2024 15:30-0400 Respiratory rate 18 /min Dr. Spenser Sanchez MD Work Phone: [facility] 07-18-2024 15:30-0400 SaO2% (BldA) [Mass fraction] 95 % Dr. Spenser Sanchez MD Work Phone: [facility] 07-18-2024 15:30-0400 Systolic blood pressure 157 mm[Hg] Dr. Spenser Sanchez MD Work Phone: [facility] 07-18-2024 12:38-0400 Inhaled oxygen flow rate 3 L/min Dr. Spenser Sanchez MD Work Phone: [facility] 07-18-2024 12:21-0400 Body height 170.[address] Spenser Sanchez MD Work Phone: [facility] 07-18-2024 12:21-0400 Body mass index (BMI) [Ratio] 21.1 kg/m2 Dr. Spenser Sanchez MD Work Phone: [facility] 07-18-2024 12:21-0400 Body weight 61.[address] Spenser Sanchez MD Work Phone: [facility] 06-14-2024 08:22-0500 Body mass index (BMI) [Ratio] 22.2 kg/m2 Dr. Spenser Sanchez MD Work Phone: [facility] 06-14-2024 08:22-0500 Body temperature 96.1 [degF] Dr. Spenser Sanchez MD Work Phone: [facility] 06-14-2024 08:22-0500 Body weight 64.[address] Spenser Sanchez MD Work Phone: [facility] 06-14-2024 08:22-0500 Diastolic blood pressure 80 mm[Hg] Dr. Spenser Sanchez MD Work Phone: [facility] 06-14-2024 08:22-0500 Heart rate 84 /min Dr. Spenser Sanchez MD Work Phone: [facility] 06-14-2024 08:22-0500 Respiratory rate 18 /min Dr. Spenser Sanchez MD Work Phone: [facility] 06-14-2024 08:22-0500 SaO2% (BldA) [Mass fraction] 97 % Dr. Spenser Sanchez MD Work Phone: [facility] 06-14-2024 08:22-0500 Systolic blood pressure 149 mm[Hg] Dr. Spenser Sanchez MD Work Phone: [facility] 05-11-2024 11:17-0500 Body temperature 97.7 [degF] Dr. Spenser Sanchez MD Work Phone: [facility] 05-11-2024 11:17-0500 Body weight 65.[address] Spenser Sanchez MD Work Phone: [facility] 05-11-2024 11:17-0500 Diastolic blood pressure 92 mm[Hg] Dr. Spenser Sanchez MD Work Phone: [facility] 05-11-2024 11:17-0500 Heart rate 103 /min Dr. Spenser Sanchez MD Work Phone: [facility] 05-11-2024 11:17-0500 Respiratory rate 16 /min Dr. Spenser Sanchez MD Work Phone: [facility] 05-11-2024 11:17-0500 SaO2% (BldA) [Mass fraction] 92 % Dr. Spenser Sanchez MD Work Phone: [facility] 05-11-2024 11:17-0500 Systolic blood pressure 152 mm[Hg] Dr. Spenser Sanchez MD Work Phone: [facility] 04-30-2024 11:43-0500 Diastolic blood pressure 109 mm[Hg] Dr. Spenser Sanchez MD Work Phone: [facility] 04-30-2024 11:43-0500 Heart rate 84 /min Dr. Spenser Sanchez MD Work Phone: [facility] 04-30-2024 11:43-0500 Respiratory rate 16 /min Dr. Spenser Sanchez MD Work Phone: [facility] 04-30-2024 11:43-0500 SaO2% (BldA) [Mass fraction] 95 % Dr. Spenser Sanchez MD Work Phone: [facility] 04-30-2024 11:43-0500 Systolic blood pressure 159 mm[Hg] Dr. Spenser Sanchez MD Work Phone: [facility] 04-30-2024 10:07-0500 Body mass index (BMI) [Ratio] 22.1 kg/m2 Dr. Spenser Sanchez MD Work Phone: [facility] 04-30-2024 10:07-0500 Body temperature 98.1 [degF] Dr. Spenser Sanchez MD Work Phone: [facility] 04-30-2024 10:07-0500 Body weight 64.[address] Spenser Sanchez MD Work Phone: [facility] 04-21-2024 09:28-0500 Heart rate 114 /min Dr. Spenser Sanchez MD Work Phone: [facility] 04-21-2024 09:28-0500 SaO2% (BldA) [Mass fraction] 95 % Dr. Spenser Sanchez MD Work Phone: [facility] 04-21-2024 09:22-0500 Body temperature 95.1 [degF] Dr. Spenser Sanchez MD Work Phone: [facility] 04-21-2024 09:22-0500 Body weight 62.[address] Spenser Sanchez MD Work Phone: [facility] 04-21-2024 09:22-0500 Diastolic blood pressure 80 mm[Hg] Dr. Spenser Sanchez MD Work Phone: [facility] 04-21-2024 09:22-0500 Respiratory rate 20 /min Dr. Spenser Sanchez MD Work Phone: [facility] 04-21-2024 09:22-0500 Systolic blood pressure 172 mm[Hg] Dr. Spenser Sanchez MD Work Phone: [facility] 04-19-2024 12:57-0500 Body mass index (BMI) [Ratio] 21.9 kg/m2 Dr. Spenser Sanchez MD Work Phone: [facility] 04-19-2024 12:57-0500 Body temperature 97.9 [degF] Dr. Spenser Sanchez MD Work Phone: [facility] 04-19-2024 12:57-0500 Body weight 63.[address] Spenser Sanchez MD Work Phone: [facility] 04-19-2024 12:57-0500 Diastolic blood pressure 80 mm[Hg] Dr. Spenser Sanchez MD Work Phone: [facility] 04-19-2024 12:57-0500 Heart rate 100 /min Dr. Spenser Sanchez MD Work Phone: [facility] 04-19-2024 12:57-0500 Respiratory rate 16 /min Dr. Spenser Sanchez MD Work Phone: [facility] 04-19-2024 12:57-0500 SaO2% (BldA) [Mass fraction] 95 % Dr. Spenser Sanchez MD Work Phone: [facility] 04-19-2024 12:57-0500 Systolic blood pressure 138 mm[Hg] Dr. Spenser Sanchez MD Work Phone: [facility] 04-11-2024 17:00-0500 Body temperature 97.8 [degF] Dr. Spenser Sanchez MD Work Phone: [facility] 04-11-2024 17:00-0500 Diastolic blood pressure 62 mm[Hg] Dr. Spenser Sanchez MD Work Phone: [facility] 04-11-2024 17:00-0500 Heart rate 72 /min Dr. Spenser Sanchez MD Work Phone: [facility] 04-11-2024 17:00-0500 Respiratory rate 15 /min Dr. Spenser Sanchez MD Work Phone: [facility] 04-11-2024 17:00-0500 SaO2% (BldA) [Mass fraction] 98 % Dr. Spenser Sanchez MD Work Phone: [facility] 04-11-2024 17:00-0500 Systolic blood pressure 145 mm[Hg] Dr. Spenser Sanchez MD Work Phone: [facility] 04-11-2024 13:28-0500 Body mass index (BMI) [Ratio] 21.7 kg/m2 Dr. Spenser Sanchez MD Work Phone: [facility] 04-11-2024 13:28-0500 Body weight 62.[address] Spenser Sanchez MD Work Phone: [facility] 03-21-2024 13:40-0500 Body temperature 98.6 [degF] Dr. Spenser Sanchez MD Work Phone: [facility] 03-21-2024 13:40-0500 Body weight 62.[address] Spenser Sanchez MD Work Phone: [facility] 03-21-2024 13:40-0500 Diastolic blood pressure 74 mm[Hg] Dr. Spenser Sanchez MD Work Phone: [facility] 03-21-2024 13:40-0500 Heart rate 98 /min Dr. Spenser Sanchez MD Work Phone: [facility] 03-21-2024 13:40-0500 Respiratory rate 18 /min Dr. Spenser Sanchez MD Work Phone: [facility] 03-21-2024 13:40-0500 SaO2% (BldA) [Mass fraction] 95 % Dr. Spenser Sanchez MD Work Phone: [facility] 03-21-2024 13:40-0500 Systolic blood pressure 132 mm[Hg] Dr. Spenser Sanchez MD Work Phone: [facility] 08-03-2023 13:57-0400 Body height 170.[address] Spenser Sanchez Work Phone: [facility] 08-03-2023 13:57-0400 Body mass index (BMI) [Ratio] 23 kg/m2 Dr. Spenser Sanchez Work Phone: [facility] 08-03-2023 13:57-0400 Body weight 66.[address] Spenser Sanchez Work Phone: [facility] 08-03-2023 13:57-0400 Diastolic blood pressure 69 mm[Hg] Dr. Spenser Sanchez Work Phone: [facility] 08-03-2023 13:57-0400 Heart rate 93 /min Dr. Spenser Sanchez Work Phone: [facility] 08-03-2023 13:57-0400 Respiratory rate 18 /min Dr. Spenser Sanchez Work Phone: [facility] 08-03-2023 13:57-0400 SaO2% (BldA) [Mass fraction] 94 % Dr. Spenser Sanchez Work Phone: [facility] 08-03-2023 13:57-0400 Systolic blood pressure 106 mm[Hg] Dr. Spenser Sanchez Work Phone: [facility] 05-12-2023 08:17-0500 Body height 170.[address] Spenser Sanchez Work Phone: [facility] 05-12-2023 08:17-0500 Body mass index (BMI) [Ratio] 22.7 kg/m2 Dr. Spenser Sanchez Work Phone: [facility] 05-12-2023 08:17-0500 Body temperature 94.2 [degF] Dr. Spenser Sanchez Work Phone: [facility] 05-12-2023 08:17-0500 Body weight 65.[address] Spenser Sanchez Work Phone: [facility] 05-12-2023 08:17-0500 Diastolic blood pressure 78 mm[Hg] Dr. Spenser Sanchez Work Phone: [facility] 05-12-2023 08:17-0500 Heart rate 86 /min Dr. Spenser Sanchez Work Phone: [facility] 05-12-2023 08:17-0500 Respiratory rate 18 /min Dr. Spenser Sanchez Work Phone: [facility] 05-12-2023 08:17-0500 SaO2% (BldA) [Mass fraction] 96 % Dr. Spenser Sanchez Work Phone: [facility] 05-12-2023 08:17-0500 Systolic blood pressure 137 mm[Hg] Dr. Spenser Sanchez Work Phone: [facility] 05-10-2023 09:35-0500 Body height 170.[address] Spenser Sanchez Work Phone: [facility] 05-10-2023 09:35-0500 Body mass index (BMI) [Ratio] 23.4 kg/m2 Dr. Spenser Sanchez Work Phone: [facility] 05-10-2023 09:35-0500 Body temperature 96 [degF] Dr. Spenser Sanchez Work Phone: [facility] 05-10-2023 09:35-0500 Body weight 67.[address] Spenser Sanchez Work Phone: [facility] 05-10-2023 09:35-0500 Diastolic blood pressure 75 mm[Hg] Dr. Spenser Sanchez Work Phone: [facility] 05-10-2023 09:35-0500 Heart rate 87 /min Dr. Spenser Sanchez Work Phone: [facility] 05-10-2023 09:35-0500 Respiratory rate 20 /min Dr. Spenser Sanchez Work Phone: [facility] 05-10-2023 09:35-0500 SaO2% (BldA) [Mass fraction] 91 % Dr. Spenser Sanchez Work Phone: [facility] 05-10-2023 09:35-0500 Systolic blood pressure 149 mm[Hg] Dr. Spenser Sanchez Work Phone: [facility] 04-19-2023 13:04-0500 Body height 170.[address] Spenser Sanchez Work Phone: [facility] 04-19-2023 13:04-0500 Body mass index (BMI) [Ratio] 22.8 kg/m2 Dr. Spenser Sanchez Work Phone: [facility] 04-19-2023 13:04-0500 Body temperature 97.9 [degF] Dr. Spenser Sanchez Work Phone: [facility] 04-19-2023 13:04-0500 Body weight 66.[address] Spenser Sanchez Work Phone: [facility] 04-19-2023 13:04-0500 Diastolic blood pressure 70 mm[Hg] Dr. Spenser Sanchez Work Phone: [facility] 04-19-2023 13:04-0500 Heart rate 86 /min Dr. Spenser Sanchez Work Phone: [facility] 04-19-2023 13:04-0500 Respiratory rate 14 /min Dr. Spenser Sanchez Work Phone: [facility] 04-19-2023 13:04-0500 SaO2% (BldA) [Mass fraction] 96 % Dr. Spenser Sanchez Work Phone: [facility] 04-19-2023 13:04-0500 Systolic blood pressure 120 mm[Hg] Dr. Spenser Sanchez Work Phone: [facility] 04-13-2023 13:33-0500 Body mass index (BMI) [Ratio] 23.3 kg/m2 Dr. Spenser Sanchez Work Phone: [facility] 04-13-2023 13:33-0500 Body temperature 97.2 [degF] Dr. Spenser Sanchez Work Phone: [facility] 04-13-2023 13:33-0500 Body weight 67.[address] Spenser Sanchez Work Phone: [facility] 04-13-2023 13:33-0500 Diastolic blood pressure 78 mm[Hg] Dr. Spenser Sanchez Work Phone: [facility] 04-13-2023 13:33-0500 Heart rate 81 /min Dr. Spenser Sanchez Work Phone: [facility] 04-13-2023 13:33-0500 Respiratory rate 16 /min Dr. Spenser Sanchez Work Phone: [facility] 04-13-2023 13:33-0500 SaO2% (BldA) [Mass fraction] 93 % Dr. Spenser Sanchez Work Phone: [facility] 04-13-2023 13:33-0500 Systolic blood pressure 144 mm[Hg] Dr. Spenser Sanchez Work Phone: [facility] 03-16-2023 14:54-0500 Body mass index (BMI) [Ratio] 23 kg/m2 Dr. Spenser Sanchez Work Phone: [facility] 03-16-2023 14:54-0500 Body temperature 97 [degF] Dr. Spenser Sanchez Work Phone: [facility] 03-16-2023 14:54-0500 Body weight 66.[address] Spenser Sanchez Work Phone: [facility] 03-16-2023 14:54-0500 Diastolic blood pressure 73 mm[Hg] Dr. Spenser Sanchez Work Phone: [facility] 03-16-2023 14:54-0500 Heart rate 77 /min Dr. Spenser Sanchez Work Phone: [facility] 03-16-2023 14:54-0500 Respiratory rate 16 /min Dr. Spenser Sanchez Work Phone: [facility] 03-16-2023 14:54-0500 SaO2% (BldA) [Mass fraction] 93 % Dr. Spenser Sanchez Work Phone: [facility] 03-16-2023 14:54-0500 Systolic blood pressure 169 mm[Hg] Dr. Spenser Sanchez Work Phone: [facility] 03-09-2023 14:54-0500 Body mass index (BMI) [Ratio] 23.2 kg/m2 Dr. Spenser Sanchez Work Phone: [facility] 03-09-2023 14:54-0500 Body temperature 97.2 [degF] Dr. Spenser Sanchez Work Phone: [facility] 03-09-2023 14:54-0500 Body weight 67.[address] Spenser Sanchez Work Phone: [facility] 03-09-2023 14:54-0500 Diastolic blood pressure 82 mm[Hg] Dr. Spenser Sanchez Work Phone: [facility] 03-09-2023 14:54-0500 Heart rate 73 /min Dr. Spenser Sanchez Work Phone: [facility] 03-09-2023 14:54-0500 Respiratory rate 16 /min Dr. Spenser Sanchez Work Phone: [facility] 03-09-2023 14:54-0500 SaO2% (BldA) [Mass fraction] 95 % Dr. Spenser Sanchez Work Phone: [facility] 03-09-2023 14:54-0500 Systolic blood pressure 139 mm[Hg] Dr. Spenser Sanchez Work Phone: [facility] 03-02-2023 14:57-0400 Body mass index (BMI) [Ratio] 23.2 kg/m2 Dr. Spenser Sanchez Work Phone: [facility] 03-02-2023 14:57-0400 Body temperature 97.4 [degF] Dr. Spenser Sanchez Work Phone: [facility] 03-02-2023 14:57-0400 Body weight 67.[address] Spenser Sanchez Work Phone: [facility] 03-02-2023 14:57-0400 Diastolic blood pressure 79 mm[Hg] Dr. Spenser Sanchez Work Phone: [facility] 03-02-2023 14:57-0400 Heart rate 88 /min Dr. Spenser Sanchez Work Phone: [facility] 03-02-2023 14:57-0400 Respiratory rate 18 /min Dr. Spenser Sanchez Work Phone: [facility] 03-02-2023 14:57-0400 SaO2% (BldA) [Mass fraction] 95 % Dr. Spenser Sanchez Work Phone: [facility] 03-02-2023 14:57-0400 Systolic blood pressure 172 mm[Hg] Dr. Spenser Sanchez Work Phone: [facility] 02-23-2023 14:56-0400 Body mass index (BMI) [Ratio] 22.7 kg/m2 Dr. Spenser Sanchez Work Phone: [facility] 02-23-2023 14:56-0400 Body temperature 97.2 [degF] Dr. Spenser Sanchez Work Phone: [facility] 02-23-2023 14:56-0400 Body weight 65.[address] Spenser Sanchez Work Phone: [facility] 02-23-2023 14:56-0400 Diastolic blood pressure 83 mm[Hg] Dr. Spenser Sanchez Work Phone: [facility] 02-23-2023 14:56-0400 Heart rate 72 /min Dr. Spenser Sanchez Work Phone: [facility] 02-23-2023 14:56-0400 Respiratory rate 16 /min Dr. Spenser Sanchez Work Phone: [facility] 02-23-2023 14:56-0400 SaO2% (BldA) [Mass fraction] 94 % Dr. Spenser Sanchez Work Phone: [facility] 02-23-2023 14:56-0400 Systolic blood pressure 171 mm[Hg] Dr. Spenser Sanchez Work Phone: [facility] 02-16-2023 12:08-0400 Body height 170.[address] Spenser Sanchez Work Phone: [facility] 02-16-2023 12:08-0400 Body mass index (BMI) [Ratio] 22.7 kg/m2 Dr. Spenser Sanchez Work Phone: [facility] 02-16-2023 12:08-0400 Body temperature 97.8 [degF] Dr. Spenser Sanchez Work Phone: [facility] 02-16-2023 12:08-0400 Body weight 65.[address] Spneser Sanchez Work Phone: [facility] 02-16-2023 12:08-0400 Diastolic blood pressure 71 mm[Hg] Dr. Spenser Sanchez Work Phone: [facility] 02-16-2023 12:08-0400 Heart rate 95 /min Dr. Spenser Sanchez Work Phone: [facility] 02-16-2023 12:08-0400 Respiratory rate 20 /min Dr. Spenser Sanchez Work Phone: [facility] 02-16-2023 12:08-0400 SaO2% (BldA) [Mass fraction] 91 % Dr. Spenser Sanchez Work Phone: [facility] 02-16-2023 12:08-0400 Systolic blood pressure 147 mm[Hg] Dr. Spenser Sanchez Work Phone: [facility] 01-12-2023 14:24-0400 Body mass index (BMI) [Ratio] 23.1 kg/m2 Dr. Spenser Sanchez Work Phone: [facility] 01-12-2023 14:24-0400 Body weight 67.[address] Spenser Sanchez Work Phone: [facility] 01-12-2023 14:24-0400 Diastolic blood pressure 73 mm[Hg] Dr. Spenser Sanchez Work Phone: [facility] 01-12-2023 14:24-0400 Heart rate 83 /min Dr. Spenser Sanchez Work Phone: [facility] 01-12-2023 14:24-0400 Respiratory rate 20 /min Dr. Spenser Sanchez Work Phone: [facility] 01-12-2023 14:24-0400 Systolic blood pressure 139 mm[Hg] Dr. Spenser Sanchez Work Phone: [facility] 12-22-2022 13:33-0400 Body mass index (BMI) [Ratio] 22.8 kg/m2 Dr. Spenser Sanchez Work Phone: [facility] 12-22-2022 13:33-0400 Body temperature 97 [degF] Dr. Spenser Sanchez Work Phone: [facility] 12-22-2022 13:33-0400 Body weight 66.[address] Spenser Sanchez Work Phone: [facility] 12-22-2022 13:33-0400 Diastolic blood pressure 78 mm[Hg] Dr. Spenser Sanchez Work Phone: [facility] 12-22-2022 13:33-0400 Heart rate 90 /min Dr. Spenser Sanchez Work Phone: [facility] 12-22-2022 13:33-0400 Respiratory rate 18 /min Dr. Spenser Sanchez Work Phone: [facility] 12-22-2022 13:33-0400 SaO2% (BldA) [Mass fraction] 93 % Dr. Spenser Sanchez Work Phone: [facility] 12-22-2022 13:33-0400 Systolic blood pressure 143 mm[Hg] Dr. Spenser Sanchez Work Phone: [facility] 12-18-2022 08:29-0400 Body height 170.[address] Spenser Sanchez Work Phone: [facility] 12-18-2022 08:29-0400 Body mass index (BMI) [Ratio] 23 kg/m2 Dr. Spenser Sanchez Work Phone: [facility] 12-18-2022 08:29-0400 Body weight 66.[address] Spenser Sanchez Work Phone: [facility] 12-18-2022 08:29-0400 Diastolic blood pressure 78 mm[Hg] Dr. Spenser Sanchez Work Phone: [facility] 12-18-2022 08:29-0400 Heart rate 86 /min Dr. Spenser Sanchez Work Phone: [facility] 12-18-2022 08:29-0400 Respiratory rate 18 /min Dr. Spenser Sanchez Work Phone: [facility] 12-18-2022 08:29-0400 SaO2% (BldA) [Mass fraction] 96 % Dr. Spenser Sanchez Work Phone: [facility] 12-18-2022 08:29-0400 Systolic blood pressure 138 mm[Hg] Dr. Spenser Sanchez Work Phone: [facility] 12-07-2022 14:23-0400 Body mass index (BMI) [Ratio] 22.7 kg/m2 Dr. Spenser Sanchez Work Phone: [facility] 12-07-2022 14:23-0400 Body temperature 97 [degF] Dr. Spenser Sanchez Work Phone: [facility] 12-07-2022 14:23-0400 Body weight 65.[address] Spenser Sanchez Work Phone: [facility] 12-07-2022 14:23-0400 Diastolic blood pressure 74 mm[Hg] Dr. Spenser Sanchez Work Phone: [facility] 12-07-2022 14:23-0400 Heart rate 84 /min Dr. Spenser Sanchez Work Phone: [facility] 12-07-2022 14:23-0400 Respiratory rate 18 /min Dr. Spenser Sanchez Work Phone: [facility] 12-07-2022 14:23-0400 SaO2% (BldA) [Mass fraction] 92 % Dr. Spenser Sanchez Work Phone: [facility] 12-07-2022 14:23-0400 Systolic blood pressure 135 mm[Hg] Dr. Spenser Sanchez Work Phone: [facility] 11-30-2022 15:40-0400 Heart rate 89 /min Dr. Spenser Sanchez Work Phone: [facility] 11-30-2022 15:40-0400 Respiratory rate 21 /min Dr. Spenser Sanchez Work Phone: [facility] 11-30-2022 15:30-0400 Diastolic blood pressure 92 mm[Hg] Dr. Spenser Sanchez Work Phone: [facility] 11-30-2022 15:30-0400 Systolic blood pressure 151 mm[Hg] Dr. Spenser Sanchez Work Phone: [facility] 11-30-2022 11:32-0400 Diastolic blood pressure 85 mm[Hg] Dr. Spenser Sanchez Work Phone: [facility] 11-30-2022 11:32-0400 Heart rate 88 /min Dr. Spenser Sanchez Work Phone: [facility] 11-30-2022 11:32-0400 Respiratory rate 18 /min Dr. Spenser Sanchez Work Phone: [facility] 11-30-2022 11:32-0400 SaO2% (BldA) [Mass fraction] 96 % Dr. Spenser Sanchez Work Phone: [facility] 11-30-2022 11:32-0400 Systolic blood pressure 154 mm[Hg] Dr. Spenser Sanchez Work Phone: [facility] 11-30-2022 11:21-0400 Body height 170.[address] Spenser Sanchez Work Phone: [facility] 11-30-2022 11:21-0400 Body mass index (BMI) [Ratio] 23 kg/m2 Dr. Spenser Sanchez Work Phone: [facility] 11-30-2022 11:21-0400 Body temperature 97 [degF] Dr. Spenser Sanchez Work Phone: [facility] 11-30-2022 11:21-0400 Body weight 66.[address] Spenser Sanchez Work Phone: [facility] 11-27-2022 07:48-0400 Body height 172.[address] Spenser Sanchez Work Phone: [facility] 11-27-2022 07:48-0400 Body weight 66.[address] Spenser Sanchez Work Phone: [facility] 11-26-2022 07:36-0400 Body mass index (BMI) [Ratio] 22.3 kg/m2 Dr. Spenser Sanchez Work Phone: [facility] 11-20-2022 08:26-0400 Body mass index (BMI) [Ratio] 21.7 kg/m2 Dr. Spenser Sanchez Work Phone: [facility] 11-20-2022 08:26-0400 Body weight 66.[address] Spenser Sanchez Work Phone: [facility] 11-20-2022 08:26-0400 Diastolic blood pressure 54 mm[Hg] Dr. Spenser Sanchez Work Phone: [facility] 11-20-2022 08:26-0400 Heart rate 82 /min Dr. Spenser Sanchez Work Phone: [facility] 11-20-2022 08:26-0400 Respiratory rate 16 /min Dr. Spenser Sanchez Work Phone: [facility] 11-20-2022 08:26-0400 Systolic blood pressure 135 mm[Hg] Dr. Spenser Sanchez Work Phone: [facility] 11-16-2022 10:59-0400 Body temperature 98.1 [degF] Dr. Spenser Sanchez Work Phone: [facility] 11-16-2022 10:59-0400 Diastolic blood pressure 78 mm[Hg] Dr. Spenser Sanchez Work Phone: [facility] 11-16-2022 10:59-0400 Heart rate 81 /min Dr. Spenser Sanchez Work Phone: [facility] 11-16-2022 10:59-0400 Respiratory rate 18 /min Dr. Spenser Sanchez Work Phone: [facility] 11-16-2022 10:59-0400 SaO2% (BldA) [Mass fraction] 98 % Dr. Spenser Sanchez Work Phone: [facility] 11-16-2022 10:59-0400 Systolic blood pressure 122 mm[Hg] Dr. Spenser Sanchez Work Phone: [facility] 11-16-2022 05:34-0400 Body mass index (BMI) [Ratio] 21.5 kg/m2 Dr. Spenser Sanchez Work Phone: [facility] 11-16-2022 05:34-0400 Body weight [address] Spenser Sanchez Work Phone: [facility] 11-14-2022 06:29-0400 Body height 175.[address] Spenser Sanchez Work Phone: [facility] 11-14-2022 05:35-0400 Body temperature 97.9 [degF] Dr. Spenser Sanchez Work Phone: [facility] 11-14-2022 05:35-0400 Diastolic blood pressure 69 mm[Hg] Dr. Spenser Sanchez Work Phone: [facility] 11-14-2022 05:35-0400 Heart rate 65 /min Dr. Spenser Sanchez Work Phone: [facility] 11-14-2022 05:35-0400 Respiratory rate 14 /min Dr. Spenser Sanchez Work Phone: [facility] 11-14-2022 05:35-0400 SaO2% (BldA) [Mass fraction] 95 % Dr. Spenser Sanchez Work Phone: [facility] 11-14-2022 05:35-0400 Systolic blood pressure 143 mm[Hg] Dr. Spenser Sanchez Work Phone: [facility] 11-14-2022 02:07-0400 Body height 170.[address] Spenser Sanchez Work Phone: [facility] 11-14-2022 02:07-0400 Body mass index (BMI) [Ratio] 24 kg/m2 Dr. Spenser Sanchez Work Phone: [facility] 11-14-2022 02:07-0400 Body weight 69.[address] Spenser Sanchez Work Phone: [facility] 11-10-2022 06:14-0400 Body mass index (BMI) [Ratio] 23.5 kg/m2 Dr. Spenser Sanchez Work Phone: [facility] 11-10-2022 06:14-0400 Body temperature 97.2 [degF] Dr. Spenser Sanchez Work Phone: [facility] 11-10-2022 06:14-0400 Body weight 68.[address] Spenser Sanchez Work Phone: [facility] 11-10-2022 06:14-0400 Diastolic blood pressure 76 mm[Hg] Dr. Spenser Sanchez Work Phone: [facility] 11-10-2022 06:14-0400 Heart rate 91 /min Dr. Spenser Sanchez Work Phone: [facility] 11-10-2022 06:14-0400 Respiratory rate 18 /min Dr. Spenser Sanchez Work Phone: [facility] 11-10-2022 06:14-0400 SaO2% (BldA) [Mass fraction] 95 % Dr. Spenser Sanchez Work Phone: [facility] 11-10-2022 06:14-0400 Systolic blood pressure 137 mm[Hg] Dr. Spenser Sanchez Work Phone: [facility] 11-01-2022 13:42-0400 Diastolic blood pressure 98 mm[Hg] Dr. Spenser Sanchez Work Phone: [facility] 11-01-2022 13:42-0400 Heart rate 80 /min Dr. Spenser Sanchez Work Phone: [facility] 11-01-2022 13:42-0400 Respiratory rate 18 /min Dr. Spenser Sanchez Work Phone: [facility] 11-01-2022 13:42-0400 SaO2% (BldA) [Mass fraction] 98 % Dr. Spenser Sanchez Work Phone: [facility] 11-01-2022 13:42-0400 Systolic blood pressure 171 mm[Hg] Dr. Spenser Sanchez Work Phone: [facility] 11-01-2022 08:10-0400 Body height 170.[address] Spenser Sanchez Work Phone: [facility] 11-01-2022 08:10-0400 Body mass index (BMI) [Ratio] 23.5 kg/m2 Dr. Spenser Sanchez Work Phone: [facility] 11-01-2022 08:10-0400 Body temperature 97.8 [degF] Dr. Spenser Sanchez Work Phone: [facility] 11-01-2022 08:10-0400 Body weight 68.[address] Spenser Sanchez Work Phone: [facility] 10-26-2022 13:52-0400 Body mass index (BMI) [Ratio] 23.8 kg/m2 Dr. Spenser Sanchez Work Phone: [facility] 10-26-2022 13:52-0400 Body weight 68.[address] Spenser Sanchez Work Phone: [facility] 10-13-2022 16:50-0400 Respiratory rate 18 /min Dr. Spenser Sanchez Work Phone: [facility] 10-13-2022 14:41-0400 Body mass index (BMI) [Ratio] 23.5 kg/m2 Dr. Spenser Sanchez Work Phone: [facility] 10-13-2022 14:41-0400 Body temperature 96.8 [degF] Dr. Spenser Sanchez Work Phone: [facility] 10-13-2022 14:41-0400 Body weight 68.[address] Spenser Sanchez Work Phone: [facility] 10-13-2022 14:41-0400 Diastolic blood pressure 93 mm[Hg] Dr. Spenser Sanchez Work Phone: [facility] 10-13-2022 14:41-0400 Heart rate 89 /min Dr. Spenser Sanchez Work Phone: [facility] 10-13-2022 14:41-0400 SaO2% (BldA) [Mass fraction] 95 % Dr. Spenser Sanchez Work Phone: [facility] 10-13-2022 14:41-0400 Systolic blood pressure 177 mm[Hg] Dr. Spenser Sanchez Work Phone: [facility] 10-07-2022 13:24-0400 Body mass index (BMI) [Ratio] 23.6 kg/m2 Dr. Spenser Sanchez Work Phone: [facility] 10-07-2022 13:24-0400 Body temperature 97.8 [degF] Dr. Spenser Sanchez Work Phone: [facility] 10-07-2022 13:24-0400 Body weight 68.[address] Spenser Sanchez Work Phone: [facility] 10-07-2022 13:24-0400 Diastolic blood pressure 72 mm[Hg] Dr. Spenser Sanchez Work Phone: [facility] 10-07-2022 13:24-0400 Heart rate 81 /min Dr. Spenser Sanchez Work Phone: [facility] 10-07-2022 13:24-0400 Respiratory rate 16 /min Dr. Spenser Sanchez Work Phone: [facility] 10-07-2022 13:24-0400 SaO2% (BldA) [Mass fraction] 97 % Dr. Spenser Sanchez Work Phone: [facility] 10-07-2022 13:24-0400 Systolic blood pressure 138 mm[Hg] Dr. Spenser Sanchez Work Phone: [facility] 08-08-2022 18:09-0400 Heart rate 92 /min Dr. Spenser Sanchez Work Phone: [facility] 08-08-2022 18:09-0400 Respiratory rate 18 /min Dr. Spenser Sanchez Work Phone: [facility] 08-08-2022 18:09-0400 SaO2% (BldA) [Mass fraction] 95 % Dr. Spenser Sanchez Work Phone: [facility] 08-08-2022 17:00-0400 Body temperature 100 [degF] Dr. Spenser Sanchez Work Phone: [facility] 08-08-2022 17:00-0400 Diastolic blood pressure 80 mm[Hg] Dr. Spenser Sanchez Work Phone: [facility] 08-08-2022 17:00-0400 Systolic blood pressure 127 mm[Hg] Dr. Spenser Sanchez Work Phone: [facility] 08-08-2022 14:41-0400 Body height 170.[address] Spenser Sanchez Work Phone: [facility] 08-08-2022 14:41-0400 Body mass index (BMI) [Ratio] 23.2 kg/m2 Dr. Spenser Sanchez Work Phone: [facility] 08-08-2022 14:41-0400 Body weight 67.[address] Spenser Sanchez Work Phone: [facility] 07-31-2022 17:03-0400 Body temperature 97.8 [degF] Dr. Spenser Sanchez Work Phone: [facility] 07-31-2022 17:03-0400 Diastolic blood pressure 78 mm[Hg] Dr. Spenser Sanchez Work Phone: [facility] 07-31-2022 17:03-0400 Heart rate 78 /min Dr. Spenser Sanchez Work Phone: [facility] 07-31-2022 17:03-0400 Respiratory rate 16 /min Dr. Spenser Sanchez Work Phone: [facility] 07-31-2022 17:03-0400 SaO2% (BldA) [Mass fraction] 99 % Dr. Spenser Sanchez Work Phone: [facility] 07-31-2022 17:03-0400 Systolic blood pressure 126 mm[Hg] Dr. Spenser Sanchez Work Phone: [facility] 07-31-2022 16:16-0400 Body height 170.[address] Spenser Sanchez Work Phone: [facility] 07-31-2022 16:16-0400 Body mass index (BMI) [Ratio] 23.6 kg/m2 Dr. Spenser Sanchez Work Phone: [facility] 07-31-2022 16:16-0400 Body weight 68.[address] Spenser Sanchez Work Phone: [facility] 07-26-2022 13:17-0400 Heart rate 82 /min Dr. Spenser Sanchez Work Phone: [facility] 07-26-2022 13:17-0400 Respiratory rate 20 /min Dr. Spenser Sanchez Work Phone: [facility] 07-26-2022 11:32-0400 Body temperature 98.5 [degF] Dr. Spenser Sanchez Work Phone: [facility] 07-26-2022 11:32-0400 Diastolic blood pressure 81 mm[Hg] Dr. Spenser Sanchez Work Phone: [facility] 07-26-2022 11:32-0400 SaO2% (BldA) [Mass fraction] 94 % Dr. Spenser Sanchez Work Phone: [facility] 07-26-2022 11:32-0400 Systolic blood pressure 143 mm[Hg] Dr. Spenser Sanchez Work Phone: [facility] 07-26-2022 08:31-0400 Inhaled oxygen flow rate 3 L/min Dr. Spenser Sanchez Work Phone: [facility] 07-25-2022 13:06-0400 Body height 170.[address] Spenser Sanchez Work Phone: [facility] 07-25-2022 13:06-0400 Body mass index (BMI) [Ratio] 23.4 kg/m2 Dr. Spenser Sanchez Work Phone: [facility] 07-25-2022 13:06-0400 Body weight 67.[address] Spenser Sanchez Work Phone: [facility] 07-25-2022 12:40-0400 Body temperature 98 [degF] Dr. Spenser Sanchez Work Phone: [facility] 07-25-2022 12:40-0400 Diastolic blood pressure 78 mm[Hg] Dr. Spenser Sanchez Work Phone: [facility] 07-25-2022 12:40-0400 Heart rate 81 /min Dr. Spenser Sanchez Work Phone: [facility] 07-25-2022 12:40-0400 Respiratory rate 14 /min Dr. Spenser Sanchez Work Phone: [facility] 07-25-2022 12:40-0400 SaO2% (BldA) [Mass fraction] 92 % Dr. Spenser Sanchez Work Phone: [facility] 07-25-2022 12:40-0400 Systolic blood pressure 143 mm[Hg] Dr. Spenser Sanchez Work Phone: [facility] 07-25-2022 07:16-0400 Body height 170.[address] Spenser Sanchez Work Phone: [facility] 07-25-2022 07:16-0400 Body mass index (BMI) [Ratio] 21.7 kg/m2 Dr. Spenser Sanchez Work Phone: [facility] 07-25-2022 07:16-0400 Body weight 63.[address] Spenser Sanchez Work Phone: [facility] 07-10-2022 14:26-0500 Body height 170.2 cm Aren Mcarthur PA-C Work Phone: [facility] 07-10-2022 14:26-0500 Body weight 68.04 kg Aren Mcarthur PA-C Work Phone: [facility] 07-10-2022 14:26-0500 Diastolic blood pressure 84 mm[Hg] Aren Mcarthur PA-C Work Phone: [facility] 07-10-2022 14:26-0500 Heart rate 99 /min Aren Mcarthur PA-C Work Phone: [facility] 07-10-2022 14:26-0500 SaO2% (BldA) [Mass fraction] 97 % Aren Mcarthur PA-C Work Phone: [facility] 07-10-2022 14:26-0500 Systolic blood pressure 138 mm[Hg] Aren Mcarthur PA-C Work Phone: [facility] 07-06-2022 13:23-0500 Body height 170.[address] Spenser Sanchez Work Phone: [facility] 07-06-2022 13:23-0500 Body mass index (BMI) [Ratio] 23.1 kg/m2 Dr. Spenser Sanchez Work Phone: [facility] 07-06-2022 13:23-0500 Body temperature 97.2 [degF] Dr. Spenser Sanchez Work Phone: [facility] 07-06-2022 13:23-0500 Body weight 67.[address] Spenser Sanchez Work Phone: [facility] 07-06-2022 13:23-0500 Diastolic blood pressure 88 mm[Hg] Dr. Spenser Sanchez Work Phone: [facility] 07-06-2022 13:23-0500 Heart rate 91 /min Dr. Spenser Sanchez Work Phone: [facility] 07-06-2022 13:23-0500 Respiratory rate 14 /min Dr. Spenser Sanchez Work Phone: [facility] 07-06-2022 13:23-0500 SaO2% (BldA) [Mass fraction] 95 % Dr. Spenser Sanchez Work Phone: [facility] 07-06-2022 13:23-0500 Systolic blood pressure 162 mm[Hg] Dr. Spenser Sanchez Work Phone: [facility] 06-30-2022 14:00-0500 Body mass index (BMI) [Ratio] 23.5 kg/m2 Dr. Spenser Sanchez Work Phone: [facility] 06-30-2022 14:00-0500 Body weight 68.[address] Spenser Sanchez Work Phone: [facility] 06-30-2022 14:00-0500 Diastolic blood pressure 82 mm[Hg] Dr. Spenser Sanchez Work Phone: [facility] 06-30-2022 14:00-0500 Heart rate 81 /min Dr. Spenser Sanchez Work Phone: [facility] 06-30-2022 14:00-0500 Respiratory rate 18 /min Dr. Spenser Sanchez Work Phone: [facility] 06-30-2022 14:00-0500 SaO2% (BldA) [Mass fraction] 94 % Dr. Spenser Sanchez Work Phone: [facility] 06-30-2022 14:00-0500 Systolic blood pressure 148 mm[Hg] Dr. Spensre Sanchez Work Phone: [facility] 06-17-2022 13:20-0500 Body mass index (BMI) [Ratio] 23 kg/m2 Dr. Spenser Sanchez Work Phone: [facility] 06-17-2022 13:20-0500 Body temperature 97.6 [degF] Dr. Spenser Sanchez Work Phone: [facility] 06-17-2022 13:20-0500 Body weight 66.[address] Spenser Sanchez Work Phone: [facility] 06-17-2022 13:20-0500 Diastolic blood pressure 80 mm[Hg] Dr. Spenser Sanchez Work Phone: [facility] 06-17-2022 13:20-0500 Heart rate 75 /min Dr. Spenser Sanchez Work Phone: [facility] 06-17-2022 13:20-0500 Respiratory rate 16 /min Dr. Spenser Sanchez Work Phone: [facility] 06-17-2022 13:20-0500 SaO2% (BldA) [Mass fraction] 97 % Dr. Spenser Sanchez Work Phone: [facility] 06-17-2022 13:20-0500 Systolic blood pressure 142 mm[Hg] Dr. Spenser Sanchez Work Phone: [facility] 05-20-2022 07:08-0500 Body height 170.[address] Spenser Sanchez Work Phone: [facility] 05-20-2022 07:08-0500 Body mass index (BMI) [Ratio] 23.3 kg/m2 Dr. Spenser Sanchez Work Phone: [facility] 05-20-2022 07:08-0500 Body temperature 97.5 [degF] Dr. Spenser Sanchez Work Phone: [facility] 05-20-2022 07:08-0500 Body weight 67.[address] Spenser Sanchez Work Phone: [facility] 05-20-2022 07:08-0500 Diastolic blood pressure 80 mm[Hg] Dr. Spenser Sanchez Work Phone: [facility] 05-20-2022 07:08-0500 Heart rate 79 /min Dr. Spenser Sanchez Work Phone: [facility] 05-20-2022 07:08-0500 Respiratory rate 18 /min Dr. Spenser Sanchez Work Phone: [facility] 05-20-2022 07:08-0500 SaO2% (BldA) [Mass fraction] 97 % Dr. Spenser Sanchez Work Phone: [facility] 05-20-2022 07:08-0500 Systolic blood pressure 145 mm[Hg] Dr. Spenser Sanchez Work Phone: [facility] 04-30-2022 14:10-0500 Body height 170.[address] Spenser Sanchez Work Phone: [facility] Work Phone: 04-30-2022 14:10-0500 Body mass index (BMI) [Ratio] 23.3 kg/m2 Dr. Spenser Sanchez Work Phone: [facility] 04-30-2022 14:10-0500 Body temperature 97.7 [degF] Dr. Spenser Sanchez Work Phone: [facility] 04-30-2022 14:10-0500 Body weight 67.[address] Spenser Sanchez Work Phone: [facility] 04-30-2022 14:10-0500 Diastolic blood pressure 62 mm[Hg] Dr. Spenser Sanchez Work Phone: [facility] 04-30-2022 14:10-0500 Heart rate 77 /min Dr. Spenser Sanchez Work Phone: [facility] 04-30-2022 14:10-0500 Respiratory rate 16 /min Dr. Spenser Sanchez Work Phone: [facility] 04-30-2022 14:10-0500 SaO2% (BldA) [Mass fraction] 97 % Dr. Spenser Sanchez Work Phone: [facility] 04-30-2022 14:10-0500 Systolic blood pressure 122 mm[Hg] Dr. Spenser Sanchez Work Phone: [facility] 03-25-2022 15:38-0500 Body height 170.[address] Spenser Sanchez Work Phone: [facility] Work Phone: 03-25-2022 15:38-0500 Body mass index (BMI) [Ratio] 23.3 kg/m2 Dr. Spenser Sanchez Work Phone: [facility] 03-25-2022 15:38-0500 Body temperature 96.6 [degF] Dr. Spenser Sanchez Work Phone: [facility] 03-25-2022 15:38-0500 Body weight 67.[address] Spenser Sanchez Work Phone: [facility] 03-25-2022 15:38-0500 Diastolic blood pressure 60 mm[Hg] Dr. Spenser Sanchez Work Phone: [facility] 03-25-2022 15:38-0500 Heart rate 84 /min Dr. Spenser Sanchez Work Phone: [facility] 03-25-2022 15:38-0500 Respiratory rate 16 /min Dr. Spenser Sanchez Work Phone: [facility] 03-25-2022 15:38-0500 SaO2% (BldA) [Mass fraction] 96 % Dr. Spenser Sanchez Work Phone: [facility] 03-25-2022 15:38-0500 Systolic blood pressure 130 mm[Hg] Dr. Spenser Sanchez Work Phone: [facility] 12-29-2021 14:35-0400 Body height 170.[address] Spenser Sanchez Work Phone: [facility] Work Phone: 12-29-2021 14:35-0400 Body mass index (BMI) [Ratio] 23.1 kg/m2 Dr. Spenser Sanchez Work Phone: [facility] Work Phone: 12-29-2021 14:35-0400 Body weight 67.[address] Spenser Sanchez Work Phone: [facility] Work Phone: 12-29-2021 14:35-0400 Diastolic blood pressure 57 mm[Hg] Dr. Spenser Sanchez Work Phone: [facility] Work Phone: 12-29-2021 14:35-0400 Heart rate 74 /min Dr. Spenser Sanchez Work Phone: [facility] Work Phone: 12-29-2021 14:35-0400 Respiratory rate 16 /min Dr. Spenser Sanchez Work Phone: [facility] Work Phone: 12-29-2021 14:35-0400 Systolic blood pressure 102 mm[Hg] Dr. Spenser Sanchez Work Phone: [facility] Work Phone: 12-29-2021 13:33-0400 Body mass index (BMI) [Ratio] 23.1 kg/m2 Dr. Spenser Sanchez Work Phone: [facility] Work Phone: 12-29-2021 13:33-0400 Body temperature 96.8 [degF] Dr. Spenser Sanchez Work Phone: [facility] Work Phone: 12-29-2021 13:33-0400 Body weight 67.[address] Spenser Sanchez Work Phone: [facility] Work Phone: 12-29-2021 13:33-0400 Diastolic blood pressure 62 mm[Hg] Dr. Spenser Sanchez Work Phone: [facility] Work Phone: 12-29-2021 13:33-0400 Heart rate 94 /min Dr. Spenser Sanchez Work Phone: [facility] Work Phone: 12-29-2021 13:33-0400 Respiratory rate 16 /min Dr. Spenser Sanchez Work Phone: [facility] Work Phone: 12-29-2021 13:33-0400 SaO2% (BldA) [Mass fraction] 95 % Dr. Spenser Sanchez Work Phone: [facility] Work Phone: 12-29-2021 13:33-0400 Systolic blood pressure 132 mm[Hg] Dr. Spenser Sanchez Work Phone: [facility] Work Phone: 11-11-2021 13:04-0400 Body mass index (BMI) [Ratio] 22.8 kg/m2 Dr. Spenser Sanchez Work Phone: [facility] Work Phone: 11-11-2021 13:04-0400 Body temperature 98.6 [degF] Dr. Spenser Sanchez Work Phone: [facility] Work Phone: 11-11-2021 13:04-0400 Body weight 66.[address] Spenser Sanchez Work Phone: [facility] Work Phone: 11-11-2021 13:04-0400 Diastolic blood pressure 56 mm[Hg] Dr. Spenser Sanchez Work Phone: [facility] Work Phone: 11-11-2021 13:04-0400 Heart rate 64 /min Dr. Spenser Sanchez Work Phone: [facility] Work Phone: 11-11-2021 13:04-0400 Respiratory rate 17 /min Dr. Spenser Sanchez Work Phone: [facility] Work Phone: 11-11-2021 13:04-0400 SaO2% (BldA) [Mass fraction] 97 % Dr. Spenser Sanchez Work Phone: [facility] Work Phone: 11-11-2021 13:04-0400 Systolic blood pressure 124 mm[Hg] Dr. Spenser Sanchez Work Phone: [facility] Work Phone: 09-24-2021 13:31-0400 Body temperature 97.3 [degF] Dr. Spenser Sanchez Work Phone: [facility] Work Phone: 09-24-2021 13:31-0400 Body weight 67.[address] Spenser Sanchez Work Phone: [facility] Work Phone: 09-24-2021 13:31-0400 Diastolic blood pressure 70 mm[Hg] Dr. Spenser Sanchez Work Phone: [facility] Work Phone: 09-24-2021 13:31-0400 Heart rate 79 /min Dr. Spenser Sanchez Work Phone: [facility] Work Phone: 09-24-2021 13:31-0400 Respiratory rate 16 /min Dr. Spenser Sanchez Work Phone: [facility] Work Phone: 09-24-2021 13:31-0400 SaO2% (BldA) [Mass fraction] 96 % Dr. Spenser Sanchez Work Phone: [facility] Work Phone: 09-24-2021 13:31-0400 Systolic blood pressure 113 mm[Hg] Dr. Spenser Sanchez Work Phone: [facility] Work Phone: 06-07-2020 15:00-0500 Pulse (Heart Rate) 73 /min [facility], [place] 06-07-2020 15:00-0500 Respiratory Rate 18 /min [facility], [place] 06-07-2020 14:00-0500 BP Diastolic 73 mm[Hg] [facility] , [place] 06-07-2020 14:00-0500 BP Systolic 132 mm[Hg] [facility] , [place] 06-07-2020 13:30-0500 Pulse Oximetry 95 % [facility] , [place] 06-07-2020 09:56-0500 Body Temperature 97.5 [degF] [facility], [place] 06-07-2020 07:46-0500 BMI (Body Mass Index) 25.53 kg/m2 [facility], [place] 06-07-2020 07:46-0500 Body weight 73.94 kg [facility] , [place] 06-07-2020 07:46-0500 Height 170.2 cm [facility] , [place] 12-16-2016 05:50-0400 BMI (Body Mass Index) 25.47 kg/m2 Lanny Tariqho PRIMARY CLASS TEACHER [facility] [place] Work Phone: 12-16-2016 05:50-0400 Body Temperature 97.4 [degF] Lanny Yensho PRIMARY CLASS TEACHER [facility] [place] Work Phone: 12-16-2016 05:50-0400 BP Diastolic 83 mm[Hg] Lanny Yensho PRIMARY CLASS TEACHER [facility] [place] Work Phone: 12-16-2016 05:50-0400 BP Systolic 137 mm[Hg] Lanny Yensho PRIMARY CLASS TEACHER [facility] [place] Work Phone: 12-16-2016 05:50-0400 Height 173.99 cm Lanny Yensho PRIMARY CLASS TEACHER [facility] [place] Work Phone: 12-16-2016 05:50-0400 Pulse (Heart Rate) 73 /min Lanny Yensho PRIMARY CLASS TEACHER [facility] [place] Work Phone: 12-16-2016 05:50-0400 Respiratory Rate 18 /min Lanny Yensho PRIMARY CLASS TEACHER [facility] [employer] Phone: 12-16-2016 05:50-0400 Weight 77.11 kg Lanny Mccall LPN [facility] [place] Work Phone: 08-28-2016 14:09-0400 BMI (Body Mass Index) 26.07 kg/m2 Angie Leigh [facility] [place] Work Phone: 08-28-2016 14:09-0400 Body Temperature 97.4 [degF] Angie Reese [facility] [place] Work Phone: 08-28-2016 14:09-0400 BP Diastolic 90 mm[Hg] Angie Reese [facility] [place] Work Phone: 08-28-2016 14:09-0400 BP Systolic 152 mm[Hg] Angie Reese [facility] [place] Work Phone: 08-28-2016 14:09-0400 Height 173.99 cm Angie Reese [facility] [place] Work Phone: 08-28-2016 14:09-0400 Pulse (Heart Rate) 79 /min Angie Leigh [facility] [place] Work Phone: 08-28-2016 14:09-0400 Pulse Oximetry 97 % Angie Reese [facility] [place] Work Phone: 08-28-2016 14:09-0400 Respiratory Rate 18 /min Angie Leigh [facility] [place] Work Phone: 08-28-2016 14:09-0400 Weight 78.93 kg Angie Reese [facility] [place] Work Phone: 06-10-2016 11:39-0500 Body Temperature 96.98 [degF] Angie Reese [facility] [place] Work Phone: 06-10-2016 11:39-0500 BSA (Body Surface Area) 1.96 m2 Angie Leigh [facility] [place] Work Phone: 06-10-2016 11:39-0500 Height 173.99 cm Angie Reese [facility] [place] Work Phone: 06-10-2016 11:39-0500 Weight 80.91 kg Angie Leigh [facility] [place] Work Phone: Encounters Encounter Date Encounter Type Care Provider Facility Start: 01-06-2025 End: 01-06-2025 Emergency department patient visit Jeremiah Lider [facility] Work Phone: -Emergency Department Work Phone: Start: 09-27-2024 End: 09-27-2024 Patient encounter procedure Monalisa Lyon [facility] -[facility] Work Phone: Start: 09-27-2024 End: 09-27-2024 Monalisa Lyon [facility] -[facility] Work Phone: Start: 09-27-2024 End: 09-27-2024 ambulatory Tiffanie Carr [facility] Work Phone: [facility] Work Phone: Start: 08-31-2024 End: 08-31-[address] Spenser Sanchez MD Work Phone: [facility] Work Phone: Start: 08-31-2024 End: 08-31-2024 Monalisa Lyon NP-C -Cat Scan, [facility] Work Phone: Start: 08-31-2024 End: 08-31-2024 ambulatory Tiffanie Carr Facility:[facility] Start: 08-11-2024 Dr. Tiki Saldivar MD -[facility] Work Phone: Start: 08-10-2024 ambulatory Rhys Fontana Fac ility:[facility] Start: 08-10-2024 End: 08-11-2024 Evaluation and management of inpatient Dr. Spenser Sanchez MD Work Phone: [facility] Work Phone: Start: 08-10-2024 End: 08-11-2024 Dr. Tiki Saldivar MD -Medical Surgical 3 Work Phone: Start: 08-10-2024 Faraznarcisa Gonzáles [facility] Start: 08-10-2024 End: 08-10-2024 ambulatory Christiano Steinberg Facility:[facility] Start: 08-10-2024 End: 08-10-2024 Dr. Christiano Steinberg MD -[facility] Work Phone: Start: 08-09-2024 [facility]isa [facility] Start: 08-09-2024 Dr. Rhys Fontana MD -[place] [facility] Work Phone: Start: 08-09-2024 ambulatory Rhys Fontana Fac ility:[facility] Start: 08-09-[address] Quincy Sanchez MD Work Phone: [facility] Work Phone: Start: 08-09-2024 Dr. Rhys Fontana MD -Medical Surgical 3 Work Phone: Start: 08-03-2024 End: 08-03-2024 Addy Luciano [facility] -Laboratory [facility] Start: 08-02-2024 End: 08-02-2024 Nanette Macdonald [facility] -[facility] Work Phone: Start: 08-02-2024 End: 08-03-[address] [facility] Facility:[facility] Start: 08-02-2024 End: 08-02-[address] [facility] Facility:[facility] Start: 07-28-2024 Dr. Rhys Fontana MD -[place] [facility] Work Phone: Start: 07-27-2024 End: 07-28-2024 ambulatory Rhys Fontana Facility:[facility] Start: 07-27-2024 End: 07-28-[address] Spenser Sanchez MD Work Phone: [facility] Work Phone: Start: 07-27-2024 End: 07-28-2024 Dr. Tiki Saldivar MD -[facility] Work Phone: Start: 07-26-2024 End: 07-26-[address] Spenser Sanchez MD Work Phone: [facility] Work Phone: Start: 07-26-2024 End: 07-26-2024 Nanette Macdonald [facility] -Laboratory, [place] Start: 07-26-2024 End: 07-26-[address] [facility] Facility:[facility] Start: 07-18-[address] [facility] Facility :[facility] Start: 07-18-2024 Faraz Gonzáles DO -[facility] Start: 07-18-2024 End: 07-18-[address] Spenser Sanchez MD Work Phone: [facility] Work Phone: Start: 07-18-2024 End: 07-18-2024 Faraznarcisa Gonzáles DO -Endoscopy Work Phone: Start: 06-14-2024 End: 06-14-2024 Monalisa Lyon [facility] -[facility] Work Phone: Start: 06-14-2024 End: 06-14-2024 ambulatory Spenser Sanchez Facility:[facility] Start: 06-06-2024 End: 06-06-2024 AISHA Carr -Cat Jad, [facility] Work Phone: Start: 06-06-2024 End: 06-06-[address] [facility] Facility:[facility] Start: 05-11-2024 End: 05-11-2024 Tracy HINES -[facility] Work Phone: Start: 05-11-2024 End: 05-11-2024 ambulatory Tracy Klein Facility[facility] Start: 05-04-2024 [facility] Start: 05-04-2024 End: 05-04-2024 Dr. Heri Williamson MD -[facility] Start: 05-04-2024 End: 05-04-[address] [facility] Facility:[facility] Start: 04-30-2024 End: 04-30-2024 Dr. Faizan Dotson DO -Emergency Department Work Phone: Start: 04-30-2024 End: 04-30-2024 Emergency department patient visit Faizan Dotson Facility:[facility] Start: 04-21-2024 End: 04-21-2024 AISHA Carr [facility] Work Phone: Start: 04-21-2024 End: 04-21-2024 ambulatory [facility] Facility:[facility] Start: 04-19-2024 End: 04-19-2024 Dr. Spenser Sanchez MD -[facility] Work Phone: Start: 04-19-2024 End: 04-19-2024 ambulatory [facility] Facility:[facility] Start: 04-19-2024 End: 04-19-2024 ambulatory [facility] Facility:[facility] Start: 04-11-2024 End: 04-11-2024 Dr. [facility]te [facility] Work [facility] Start: 04-11-2024 End: 04-11-2024 Emergency department patient visit [facility] Facility[facility] Start: 03-23-2024 End: 03-23-2024 Nanette ROSS -Laboratory, [place] Start: 03-23-2024 End: 03-23-2024 ambulatory [facility] Facility:[facility] Start: 03-21-2024 End: 03-21-2024 Nanette ROSS -[facility] Work Phone: Start: 03-21-2024 End: 03-21-2024 ambulatory Efewongbe Oleghe Facility:[facility] Start: 02-29-2024 End: 02-29-2024 ambulatory Efewongbe Olee Facility:[facility] Start: 02-02-2024 ambulatory Efewongbe Oleghe Facili ty:[facility] Start: 01-07-2024 End: 01-07-2024 ambulatory Efewongbe Oleghe Facility:[facility] Start: 11-15-2023 End: 11-15-2023 [facility] Start: 11-09-2023 End: 11-09-2023 ambulatory Efewongbe Olee Facility:[facility] Start: 10-28-2023 End: 10-28-2023 [facility] Start: 10-28-2023 End: 10-28-2023 [facility]ulatory [facility] Start: 10-20-2023 End: 10-20-2023 [facility] Start: 10-20-2023 End: 10-20-2023 ambulatory [facility] Start: 08-10-2023 End: 08-10-[address] Spenser Sanchez Work Phone: [facility] Work Phone: Start: 08-10-2023 End: 08-10-[address] Spenser Sanchez Work Phone: [facility]-Laboratory Work Phone: Start: 08-03-2023 End: 08-03-[address] Spenser Sanchez Work Phone: [facility] Work Phone: Start: 05-19-2023 End: 05-19-[address] Spenser Sanchez Work Phone: [facility] Work Phone: Start: 05-17-2023 Non-patient / Non-visit Dr. Spenser Sanchez Work Phone: [facility] Start: 05-17-2023 End: 05-17-[address] Spenser Sanchez Work Phone: [facility] Work Phone: Start: 05-17-2023 End: 05-17-[address] [facility] Start: 05-12-2023 End: 05-12-[address] [facility]ens[facility] Sanchez [facility] Work Phone: Start: 05-10-2023 End: 05-10-[address] Spenser Sanchez Work Phone: [facility] Work Phone: Start: 05-05-2023 Non-patient / Non-visit Dr. Spenser Sanchez Work Phone: [facility] Start: 05-05-2023 End: 05-05-[address] Spenser Sanchez Work Phone: [facility] Work Phone: Start: 05-05-2023 End: 05-05-[address] [facility] Work [facility] Start: 04-21-2023 End: 04-21-[address] Spenser Sanchez Work Phone: [facility] Work Phone: Start: 04-21-2023 End: 04-21-[address] Spenser Sanchez Work Phone: [facility]-Laboratory Work Phone: Start: 04-19-[address] Spenser Sanchez Work Phone: [facility] Start: 04-19-2023 End: 04-19-2023 Emergency department patient visit Dr. Spenser Sanchez Work Phone: [facility] Start: 04-19-2023 End: 04-19-[address] Spenser Sanchez Work Phone: [facility] Work Phone: Start: 2023 End: [address] Spenser Sanchez Work Phone: [facility] Work Phone: Start: 2023 End: [address] Spenser Sanchez Work Phone: [facility]-Laboratory Work Phone: Start: 04-14-2023 End: 04-14-[address] Spenser Sanchez Work Phone: [facility] Work Phone: Start: 04-13-2023 End: 04-13-[address] Spenser Sanchez Work Phone: [facility] Work Phone: Start: 03-19-[address] Surya Sanchez Work Phone: [facility]-Radiation Oncology Start: 03-19-2023 Non-patient / Non-visit Dr. Spenser Sanchez Work Phone: [facility] Work Phone: Start: 03-16-2023 End: 03-16-[address] Spenser Sanchez Work Phone: [facility] Work Phone: Start: 03-09-2023 End: 03-09-[address] Spenser Sanchez Work Phone: [facility] Work Phone: Start: 03-02-2023 End: 03-02-[address] Spenser Sanchez Work Phone: [facility] Work Phone: Start: 02-23-2023 End: 02-23-[address] Spenser Sanchez Work Phone: [facility] Work Phone: Start: 02-19-2023 Non-patient / Non-visit Dr. Spenser Sanchez Work Phone: [facility] Start: 02-16-2023 End: 02-16-[address] Spenser Sanchez Work Phone: [facility] Work Phone: Start: 02-11-2023 Non-patient / Non-visit Dr. Spenser Sanchez Work Phone: [facility] Start: 02-11-[address] Surya Sanchez Work Phone: [facility] Start: 02-11-2023 End: 02-11-[address] Spenser Sanchez Work Phone: [facility] Work Phone: Start: 02-11-2023 End: 02-11-[address] Spenser Sanchez Work Phone: [facility] Work Phone: Start: 01-12-2023 End: 01-12-[address] Spenser Sanchez Work Phone: [facility] Work Phone: Start: 12-22-2022 End: 12-22-[address] Spenser Sanchez Work Phone: [facility] Work Phone: Start: 12-18-2022 End: 12-18-[address] Spenser Sanchez Work Phone: [facility] Work Phone: Start: 12-14-2022 End: 12-14-[address] Spenser Sanchez Work Phone: [facility] Work Phone: Start: 12-14-2022 End: 12-14-[address] Spenser Sanchez Work Phone: [facility]-Laboratory Work Phone: Start: 12-07-2022 End: 12-07-[address] Spenser Sanchez Work Phone: [facility] Work Phone: Start: 12-02-2022 Non-patient / Non-visit Dr. Spenser Sanchez Work Phone: [facility] Work Phone: Start: 12-01-2022 Non-patient / Non-visit Dr. Spenser Sanchez Work Phone: [facility] Start: 11-30-2022 End: 11-30-2022 Emergency department patient visit Dr. Spenser Sanchez Work Phone: [facility]-Emergency Department Work Phone: Start: 11-27-2022 End: 11-27-2022 Admission to same day surgery center Dr. Spenser Sanchez Work Phone: [facility]/Special Procedures Work Phone: Start: 11-27-2022 End: 11-27-[address] Spenser Sanchez Work Phone: [facility] Work Phone: Start: 11-24-2022 End: 11-24-[address] Spenser Sanchez Work Phone: [facility] Work Phone: Start: 11-24-2022 End: 11-24-[address] Spenser Sanchez Work Phone: [facility]-Laboratory Work Phone: Start: 11-20-2022 End: 11-20-[address] Spenser Sanchez Work Phone: [facility] Work Phone: Start: 11-16-2022 Non-patient / Non-visit Dr. Spenser Sanchez Work Phone: [facility] Work Phone: Start: 11-16-2022 Dr. Spenser Sanchez Work Phone: [facility] Work Phone: Start: 11-16-2022 End: 11-16-2022 Non-patient / Non-visit Dr. Spenser Sanchez Work Phone: [facility] Work Phone: Start: 11-15-2022 Non-patient / Non-visit Dr. Spenser Sanchez Work Phone: [facility] Start: 11-15-2022 Dr. Spenser Sanchez Work Phone: [facility] Start: 11-15-2022 Non-patient / Non-visit Dr. Spenser Sanchez Work Phone: [facility] Work Phone: Start: 11-15-2022 Dr. Spenser Sanchez Work Phone: [facility] Work Phone: Start: 11-14-2022 Non-patient / Non-visit Dr. Spenser Sanchez Work Phone: [facility] Start: 11-14-2022 Dr. Spenser Sanchez Work Phone: [facility] Start: 11-14-2022 End: 11-16-2022 Evaluation and management of inpatient Dr. Spenser Sanchez Work Phone: [facility] Work Phone: Start: 11-14-2022 End: 11-16-2022 Dr. Spenser Sanchez Work Phone: [facility] Work Phone: Start: 11-10-2022 End: 11-10-[address] [facility]enser Sanchez [facility] Work Phone: Start: 11-10-2022 End: 11-10-2022 Dr. Spenser Sanchez Work Phone: [facility] Work Phone: Start: 11-01-2022 End: 11-01-2022 Emergency department patient [facility]ens[facility] Start: 11-01-2022 End: 11-01-2022 Dr. Spenser Sanchez Work Phone: [facility]-Emergency Department Work Phone: Start: 10-26-2022 End: 10-26-[address] Spenser Sanchez Work Phone: [facility] Work Phone: Start: 10-26-2022 End: 10-26-2022 Dr. Spenser Sanchez Work Phone: [facility] Work Phone: Start: 10-20-2022 End: 10-20-[address] Spenser Sanchez Work Phone: [facility] Start: 10-20-2022 End: 10-20-2022 Dr. Spenser Sanchez Work Phone: [facility] Start: 10-13-2022 End: 10-13-2022 Emergency department patient visit Dr. Spenser Sanchez Work Phone: [facility]-Emergency Department Work Phone: Start: 10-13-2022 End: 10-13-2022 Dr. Spenser Sanchez Work Phone: [facility] Work Phone: Start: 10-07-2022 End: 10-07-[address] Spenser Sanchez Work Phone: [facility] Work Phone: Start: 10-07-2022 End: 10-07-2022 Dr. Spenser Sanchez Work Phone: [facility] Work Phone: Start: 08-26-2022 End: 08-26-[address] Spenser Sanchez Work Phone: [facility] Work Phone: Start: 08-26-2022 End: 08-26-[address] Spenser Sanchez Work Phone: [facility] Start: 08-26-2022 End: 08-26-2022 Dr. Spenser Sanchez Work Phone: [facility] Work Phone: Start: 08-18-2022 End: 08-18-[address] Spenser Sanchez Work Phone: [facility] Work Phone: Start: 08-18-2022 End: 08-18-2022 Patient encounter procedure Dr. Spenser Sanchez Work Phone: [facility] Start: 08-18-2022 End: 08-18-2022 Dr. Spenser Sanchez Work Phone: [facility] Work Phone: Start: 08-13-2022 End: 08-13-[address] Spenser Sanchez Work Phone: [facility] Work Phone: Start: 08-13-2022 End: 08-13-[address] Spenser Sanchez Work Phone: [facility] Specimen Start: 08-13-2022 End: 08-13-2022 Dr. [facility] Start: 08-08-2022 End: 08-08-2022 Emergency department patient visit Dr. Spenesr Sanchez Work Phone: [facility] Start: 08-08-2022 End: 08-08-2022 Dr. Spenser Sanchez Work Phone: [facility] Work Phone: Start: 07-31-2022 End: 07-31-2022 Emergency department patient visit Dr. Spenser Sanchez Work Phone: [facility] Start: 07-31-2022 End: 07-31-2022 Dr. Spenser Sanchez Work Phone: [facility] Work Phone: Start: 07-26-2022 Non-patient / Non-visit Dr. Spenser Sanchez Work Phone: [facility] Start: 07-26-2022 Dr. Spenser Sanchez Work Phone: [facility] Work Phone: Start: 07-25-2022 End: 07-26-2022 Evaluation and management of inpatient Dr. Spenser Sanchez Work Phone: [facility] 3 Start: 07-25-2022 End: 07-26-2022 Dr. Spenser Sanchez Work Phone: [facility] Work Phone: Start: 07-25-2022 Non-patient / Non-visit Dr. Spenser Sanchez Work Phone: [facility] Start: 07-25-2022 Dr. Spenser Sanchez Work Phone: [facility] Work Phone: Start: 07-25-2022 End: 07-26-2022 Evaluation and management of inpatient Dr. Spenser Sanchez Work Phone: [facility] 3 Start: 07-10-2022 End: 07-11-2022 ambulatory SPENSER SANCHEZ Facility:[facility] Start: 07-10-2022 End: 07-11-2022 ambulatory SPENSER SANCHEZ Facility:[facility] Start: 07-10-2022 End: 07-10-2022 Patient encounter procedure Aren Mcarthur PA-C Work Phone: Urology Comment on above: Elevated prostate sp ecific antigen (PSA) (Primary Dx); Atherosclerosis of coronary artery of yurok heart without angina pectoris, unspecified vessel or lesion type; Personal history of rectal cancer; Chronic obstructive pulmonary disease, unspecified COPD type (HCC) Start: 07-06-2022 End: 07-06-[address] Spenser Sanchez Work Phone: [facility] Work Phone: Start: 07-06-2022 End: 07-06-[address] Spenser Sanchez Work Phone: [facility] Start: 06-30-2022 End: 06-30-[address] Spenser Sanchez Work Phone: [facility] Start: 06-17-2022 End: 06-17-[address] Spenser Sanchez Work Phone: [facility] Start: 05-20-2022 End: 05-20-[address] Spens[facility] Sanchez [facility] Start: 05-19-2022 End: 05-19-[address] Spenser Sanchez Work Phone: [facility] Work Phone: Start: 05-19-2022 End: 05-19-[address] Spenser Sanchze Work Phone: [facility] Start: 05-06-2022 Non-patient / Non-visit Dr. Spenser Sanchez Work Phone: [facility] Start: 05-06-2022 End: 05-06-[address] Spenser Sanchez Work Phone: [facility] Work Phone: Start: 05-06-2022 End: 05-06-[address] [facility] Start: 05-05-2022 End: 05-05-[address] Spenser Sanchez Work Phone: [facility] Start: 05-01-2022 Non-patient / Non-visit Dr. Spenser Sanchez Work Phone: [facility] Start: 05-01-2022 End: 05-01-[address] Spenser Sanchez Work Phone: [facility] Work Phone: Start: 05-01-2022 End: 05-01-[address] [facility] Start: 04-30-2022 End: 04-30-[address] Spenser Sanchez Work Phone: [facility] Start: 04-21-2022 End: 04-21-[address] Spenser Sanchez Work Phone: [facility] Start: 03-25-2022 End: 03-25-[address] Spenser Sanchez Work Phone: [facility] Work Phone: Start: 03-25-2022 End: 03-25-[address] Spenser Sanchez Work Phone: [facility] Start: 03-06-2022 End: 03-06-[address] Spenser Sanchez Work Phone: [facility] Start: 12-29-2021 End: 12-29-[address] Spenser Sanchez Work Phone: [facility] Start: 12-29-2021 End: 12-29-[address] Spenser Sanchez Work Phone: [facility] Work Phone: Start: 12-29-2021 End: 12-29-[address] Spenser Sanchez Work Phone: [facility] Start: 11-11-2021 End: 11-11-[address] Spenser Sanchez Work Phone: [facility] Start: 09-24-2021 End: 09-24-[address] Spenser Sanchez Work Phone: [facility] Start: 06-07-2020 End: 06-07-2020 Subsequent hospital visit by physician Denis Rodriguez Work Phone: [facility] Lather Apprentice Comment on above: S/P drug eluting cor onary stent placement (Primary Dx); Coronary artery disease involving yurok coronary artery of yurok heart without angina pectoris Procedures Date Procedure Procedure Detail Performing Clinician Start: 08-31-2024 Assay of prostate sp ecific antigen total Dr. Spenser Snachez MD Work Phone: Start: 08-31-2024 CT of chest without contrast Dr. Spenser Sanchez MD Work Phone: Start: 08-10-[address] Cate Sanchez MD Work Phone: Start: 08-10-2024 Blood count smear mc rscp w/mnl difrntl wbc count Dr. Spenser Sanchez MD Work Phone: Start: 08-10-2024 Estimated [...] Work Phone: Start: 08-02-2024 Blood count smear mc rscp w/mnl difrntl wbc count Dr. Spenser Sanchez MD Work Phone: Start: 08-02-2024 Mean corpuscular hemoglobin concentration determination Dr. Spenser Sanchez MD Work Phone: Start: 08-02-2024 Nucleated red blood cell count procedure Dr. Spenser Sanchez MD Work Phone: Start: 08-02-2024 Platelet mean volume determination Dr. Spenser Sanchez MD Work Phone: Start: 07-28-2024 Blood count smear mc rscp w/mnl difrntl wbc count Dr. Spenser Sanchez [...] Work Phone: Start: 07-27-2024 Gases blood o2 satur ation only direct jenna Dr. Spenser Sanchez MD Work Phone: Start: 07-27-2024 Measurement of parti al pressure of oxygen in blood Dr. Spenser Sanchez MD Work Phone: Start: 07-27-[address] Olaf Sanchez MD Work Phone: Start: 07-27-[address] Spenser Sanchez MD Work Phone: Start: 07-27-2024 Venous oxygen satura tion measurement Dr. Spenser Sanchez MD Work Phone: Start: 07-27-2024 Measurement of occul t blood in stool specimen using immunoassay Dr. Spenser Sanchez MD Work Phone: Start: 07-27-2024 Urine microscopy: re d cells Dr. Spenser Sanchez MD Work Phone: Start: 07-27-2024 Urnls dip stick/tabl et reagent auto microscopy Dr. Spenser Sanchez MD Work Phone: Start: 07-27-2024 Computed tomography of abdomen and pelvis with intravenous contrast Dr. Spenser Sanchez MD Work Phone: Start: 07-27-2024 [address] lipa se measurement Dr. Spenser Sanchez MD Work Phone: Start: 07-26-2024 Blood count smear mc rscp w/mnl difrntl wbc count Dr. Spenser Sanchez MD Work Phone: Start: 07-26-2024 Mean corpuscular hemoglobin concentration determination Dr. Spenser Sanchez MD Work Phone: Start: 07-26-2024 Nucleated red blood cell count procedure Dr. Spenser Sanchez MD Work Phone: Start: 07-26-2024 Platelet mean volume determination Dr. Spenser Sanchez MD Work Phone: Start: 07-18-[address] Cate Sanchez MD Work Phone: Start: 06-06-2024 CT of chest without contrast Dr. Spenser Sanchez MD Work Phone: Start: 04-30-2024 Dr. Cate Sanchez MD Work Phone: Start: 04-30-2024 Plain chest X-ray Dr. Destiny Sanchez MD Work Phone: Start: 04-11-2024 X-ray of chest, PA a nd lateral views Dr. Spenser Sanchez MD Work Phone: Start: 02-11-2023 MRI of pelvis with contrast Dr. Spenser Sanchez Work Phone: Start: 11-30-2022 Plain chest X-ray Dr. Destiny Sanchez Work Phone: Start: 11-27-2022 History of placement of stent for coronary artery disease History of coronary artery stent placement Dr. Spenser Sanchez Work Phone: Comment on above: PCI-JIM-Mid RCA w/ 3 .5 x 8 mm and 3.5 x 23 mm Cypher Stent 05/27/2007; PCI-JIM-Mid LAD w/ 3.0 x 8 mm and 2.75 x 23 mm Cypher Stent, IJM-Prox LCx w/ 3.5 x 13 mm Cypher Stent and POBA-OM1 05/30/2007; MRX-Nqjt-LWD w/ 3.0 x 18 mm, JIM-Mid LCx w/ 3.5 x 18 mm, and LCx Posterior lateral extension w/ 2.75 x 15 mm Xience Payal Stents; JIM-ISR-Mid LAD w/ 2.75 x 33 mm and 2.5 x 12 mm Xience Payal Stents 06/07/20;JIM-Resolute Dewey [id number] to proximal LAD -11/27/2022. Start: 11-14-2022 Plain chest X-ray Dr. Destiny Sanchez Work Phone: Start: 11-01-2022 Plain chest X-ray Dr. Destiny Sanchez Work Phone: Start: 10-26-2022 Plain x-ray of hand Dr. Spenser Sanchez Work Phone: Start: 10-20-2022 PET study for locali zation of tumor Dr. Spenser Sanchez Work Phone: Start: 10-13-2022 Plain X-ray of toe Dr. Spenser Sanchez Work Phone: Start: 08-26-2022 Computed tomography of abdomen and pelvis with contrast Dr. Spenser Sanchez Work Phone: Start: 08-18-2022 Radionuclide whole b ivonne bone study Dr. Spenser Sanchez Work Phone: Start: 08-08-2022 Plain chest X-ray Dr. Destiny Sanchez Work Phone: Start: 08-08-2022 Bacteria identified in Blood by Culture Dr. Spenser Sanchez Work Phone: Start: 08-08-2022 SARS-CoV-2 & FLU Ant igen (Rapid) Dr. Spenser Sanchez Work Phone: Start: 08-08-[address] Surya Sanchez Work Phone: Start: 08-08-2022 Dr. Cate Sanchez Work Phone: Start: 07-25-2022 Plain X-ray abdomen Dr. Spenser Sanchez Work Phone: Start: 07-25-2022 CT of abdomen and pe lvis without contrast Dr. Spenser Sanchez Work Phone: Start: 07-10-2022 Urnls dip stick/tabl et rgnt auto w/o microscopy Aren HINES-Agapito Work Phone: Start: 05-19-2022 CT of abdominal vasc ular structures Dr. Spenser Sanchez Work Phone: Start: 06-07-2020 History of placement of stent for coronary artery disease History of coronary artery stent placement Dr. Spenser Sanchez Work Phone: Start: 06-07-2020 Ecg routine ecg w/le ast 12 lds w/i&r Zulma Martini Work Phone: Start: 06-07-2020 CARDIAC CATH NURSING LOG 3m Scanning Start: 06-07-2020 End: 06-07-2020 Coagulation time activated Denis Melisa Mcclulough sheng Work Phone: Start: 06-07-2020 Catheterization and angiography procedure details panel Denis Rodriguez Work Phone: Start: 06-07-2020 Basic metabolic pane l calcium total Denis Rodriguez Work Phone: Start: 01-29-2016 End: 01-30-2016 Referral to respiratory physician Darryn Kessler Work Phone: Start: 09-10-2015 End: 12-11-2015 Follow Up Appt 3 months Monalisa champion CAUSTIC STRENGTH INSPECTOR Work Phone: Start: 09-01-2015 End: 12-10-2015 Pulmonary Function Test - complete Darryn Kessler Work Phone: Start: 09-01-2015 End: 12-10-2015 Pulmonary stress test/simple Darryn Kessler Work Phone: Start: 08-05-2015 End: 08-07-2015 Bacteria sputum culture Monalisa champion CAUSTIC STRENGTH INSPECTOR Work Phone: Start: 03-12-2015 End: 03-12-2015 Documentation of current medications Darryn Kessler Work Phone: Start: 03-12-2015 End: 12-10-2015 Follow Up Appt 6 months Darryn Kessler Work Phone: Start: 09-11-2014 End: 09-12-2014 Documentation of current medications Darryn Kessler Work Phone: Start: 09-11-2014 End: 12-10-2015 Follow Up Appt 6 months Darryn Kessler Work Phone: Start: 06-12-2014 [...] - Td) DTaP/Tdap/Td vaccine (3 - Td) [place], [place] Start: 10-18-2024 ambulatory Facility:[facility] Start: 08-11-2024 [facility] Start: 08-10-2024 Admission procedure [facility] Start: 08-09-2024 Following clinical p athway protocol [facility] Start: 08-09-2024 Ambulation without limitation [facility] Start: 08-09-2024 Assessment of risk o f venous thromboembolism [facility] Start: 08-09-2024 Inhalation therapy procedure [facility] Start: 08-09-2024 Insertion of cathete r into peripheral vein [facility] Start: 08-09-2024 Providing care accor ding to [facility] Start: 08-09-2024 Referral to gastroen terology service [facility] Start: 08-09-2024 [facility] Start: 08-09-2024 Verification routine [facility] Start: 08-09-2024 Admission procedure [facility] Start: 08-09-2024 Hospital admission, emergency, from emergency room, medical nature [facility] Start: 08-09-2024 [facility] Start: 08-09-2024 Patient referral to dietitian [facility] Start: 08-09-2024 [facility] Start: 07-28-2024 Patient discharge [facility] Start: 07-28-2024 Oxygen therapy [facility] Start: 07-27-2024 End: 07-27-2024 [facility] Start: 07-27-2024 Care regimes management [facility] Start: 07-27-2024 Notification of physician [facility] Start: 07-27-2024 Application of inter mittent pneumatic compression device [facility] Start: 07-27-2024 Following clinical p athway protocol [facility] Start: 07-27-2024 Assessment of risk o f venous thromboembolism [facility] Start: 07-27-2024 Incentive spirometry [facility] Start: 07-27-2024 Insertion of cathete r into peripheral vein [facility] Start: 07-27-2024 Measuring intake and output [facility] Start: 07-27-2024 Providing care accor ding to [facility] Start: 07-27-2024 Provision of activit y privileges [facility] Start: 07-27-2024 Referral to service [facility] Start: 07-27-2024 [facility] Start: 07-27-2024 Verification routine [facility] Start: 07-27-2024 Admission procedure [facility] Start: 07-27-2024 Hospital admission, emergency, from emergency room, medical nature [facility] Start: 07-27-2024 Gas panel - Venous blood [facility] Start: 07-27-2024 Consultation [facility] Start: 07-27-2024 Inhalation therapy procedure [facility] Start: 07-27-2024 Patient referral to dietitian [facility] Start: 07-18-2024 Colonoscopy w/biopsy single/multiple [facility] Start: 07-18-2024 Electrocardiographic procedure [facility] Start: 07-18-2024 Patient discharge [facility] Start: 04-30-2024 [facility] Start: 04-11-2024 [facility] Start: 12-01-2022 Patient referral [facility] Work Phone: Start: 11-30-2022 End: 11-30-2022 Electrocardiographic procedure [facility] Start: 11-30-2022 Plain chest X-ray Chest 1 View (Portable) [facility] Start: 11-30-2022 [facility] Start: 11-30-2022 Blood chemistry [facility] Start: 11-30-2022 Brain natriuretic pe ptide measurement [facility] Start: 11-30-2022 [facility] Start: 11-27-2022 Cardiac rehabilitati on - phase 1 [facility] Start: 11-27-2022 Cardiac rehabilitati on - phase 2 [facility] Start: 11-27-2022 Patient discharge [facility] Start: 11-17-2022 Blood chemistry [facility] Start: 11-16-2022 Patient discharge [facility] Start: 11-16-2022 Catheterization of left heart [facility] Start: 11-15-2022 [facility] Start: 11-15-2022 [facility] Start: 11-14-2022 Referral to gear straightener [facility] Start: 11-14-2022 Following clinical p athway protocol [facility] Start: 11-14-2022 Assessment of risk o f venous thromboembolism [facility] Start: 11-14-2022 Incentive spirometry [facility] Start: 11-14-2022 Inhalation therapy procedure [facility] Start: 11-14-2022 Insertion of cathete r into peripheral vein [facility] Start: 11-14-2022 Introduction of urin festus catheter [facility] Start: 11-14-2022 Measuring intake and output [facility] Start: 11-14-2022 Providing care accor ding to standard [facility] Start: 11-14-2022 Provision of activit y privileges [facility] Start: 11-14-2022 Referral to feather duster winder [facility] Start: 11-14-2022 Referral to service [facility] Start: 11-14-2022 Tobacco use cessatio n education [facility] Start: 11-14-2022 [facility] Start: 11-14-2022 Verification routine [facility] Start: 11-14-2022 Electrocardiographic procedure [facility] Start: 11-14-2022 Admission procedure [facility] Start: 11-14-2022 [facility] Start: 11-01-2022 [facility] Start: 08-08-2022 End: 08-08-2022 Blood culture [facility] Start: 08-08-2022 End: 08-08-2022 [facility] Start: 08-03-2022 Blood chemistry [facility] Start: 08-02-2022 Blood chemistry [facility] Start: 08-01-2022 Blood chemistry [facility] Start: 07-31-2022 Simple repair scalp/neck/ax/genit/trunk 2.5cm/< [facility] Start: 07-31-2022 Blood chemistry [facility] Start: 07-30-2022 Blood chemistry [facility] Start: 07-30-2022 [facility] Start: 07-29-2022 Blood chemistry [facility] Start: 07-29-2022 [facility] Start: 07-28-2022 Blood chemistry [facility] Start: 07-28-2022 [facility] Start: 07-27-2022 Blood chemistry [facility] Start: 07-27-2022 [facility] Start: 07-26-2022 Patient discharge [facility] Start: 07-26-2022 [facility] Start: 07-25-2022 Admission procedure [facility] Start: 07-25-2022 Incentive spirometry [facility] Start: 07-25-2022 Assessment of risk o f venous thromboembolism [facility] Start: 07-25-2022 Catheterization of vein [facility] Start: 07-25-2022 Insertion of cathete r into peripheral vein [facility] Start: 07-25-2022 Providing care accor ding to standard [facility] Start: 07-25-2022 Referral to service [facility] Start: 07-25-2022 End: 07-25-2022 [facility] Start: 07-25-2022 Following clinical p athway protocol [facility] Start: 07-25-2022 Inhalation therapy procedure [facility] Start: 05-03-2022 ADVANCE DIRECTIVE DISCUSSION A DVANCE DIRECTIVE DISCUSSION [facility] Start: 05-03-2022 DEPRESSION ASSESSMENT DEPRESSION ASS ESSMENT [facility] Start: 03-03-2022 DIABETES SCREEN [facility]ABET[facility]CREEN [facility] Start: 06-07-2021 Creatinine measurement Creatinine mo nitoring [place], [place] Start: 06-07-2021 Potassium monitoring Potassium monit oring [place] Start: 12-24-2020 COVID-19 VACCINE (5 - Booster for Moderna series) COVID-19 VACCINE (5 - Booster for Moderna series) [facility] Start: 06-17-2020 End: 06-17-2020 Office Visit 06/17/2020 Office Visit Cardiology Zulma Martini, THEATER TECHNICIAN - CAUSTIC STRENGTH INSPECTOR [address] [place] [address] [place] [address] [id number] [facility] Start: 06-07-2020 End: 06-07-2021 Basic metabolic 2000 panel Basic Metabolic Panel Lab Routine S/P drug eluting coronary stent placement Coronary artery disease involving yurok coronary artery of yurok heart without angina pectoris Expected: 06/07/2020, Expires: 06/07/2021 [place] Comment on above: Expected: 06/07/2020 , Expires: 06/07/2021 Start: 04-29-2020 Shingles Vaccine (2 of 2) Mari gles Vaccine (2 of 2) [place], [place] Start: 01-23-2018 Urine microalbumin profile DTA P,TDAP,TD (3 - Tdap) [facility] Start: 07-01-2017 End: 12-16-2016 Pulmonary Function Test - complete Pulmonary Function Test - complete [facility] Work Phone: Start: 07-01-2017 End: 12-16-2016 Pulmonary stress test/simple Pulmonary stress testing; simple (eg, 6-minute walk) [facility] Work Phone: Start: 06-21-2017 End: 06-21-2017 Appointment [facility] Work Phone: Start: 12-16-2016 End: 12-16-2016 Appointment Appointment [facility] Work Phone: Start: 12-16-2016 End: 12-16-2016 [facility] Work Phone: Start: 12-16-2016 End: 12-16-2016 Follow Up Appt 6 months Follow Up Appt 6 months [facility] Work Phone: Start: 08-28-2016 End: 08-28-2016 Appointment Appointment [facility] Work Phone: Start: 06-10-2016 End: 06-10-2016 BWA BWA [facility] Work Phone: Start: 06-10-2016 End: 06-10-2016 Follow Up Appt 6 months Follow Up Appt 6 months [facility] Work Phone: Start: 04-09-2016 Hepatitis B surface antibody level LDL CHOLESTEROL [facility] Start: 01-29-2016 End: 02-03-2016 Pulmonary Rehab [facility], [address], [place], [address] [facility] Work Phone: Start: 12-11-2015 End: 12-11-2015 [facility] Phone: Start: 12-11-2015 End: 12-11-2015 Follow Up Appt 6 months Follow Up Appt 6 months [facility] Phone: Start: 09-10-2015 End: 12-11-2015 Follow Up Appt 3 months Follow Up Appt 3 months [facility] Phone: Start: 09-01-2015 End: 12-10-2015 Pulmonary Function Test - complete Pulmonary Function Test - complete [facility] Phone: Start: 09-01-2015 End: 12-10-2015 Pulmonary stress test/simple Pulmonary stress testing; simple (eg, 6-minute walk) [facility] Phone: Start: 08-05-2015 End: 08-07-2015 Bacteria sputum culture *CUSP - Culture Sputum [facility] Phone: Start: 03-12-2015 End: 12-10-2015 Follow Up Appt 6 months Follow Up Appt 6 months [facility] Phone: Start: 09-11-2014 End: 12-10-2015 Follow Up Appt 6 months Follow Up Appt 6 months [facility] Phone: Start: 06-12-2014 End: 12-10-2015 Follow Up Appt 3 months Follow Up Appt 3 months [facility] Phone: Start: 06-12-2014 End: 12-10-2015 Pulmonary Fuction Test - complete Pulmonary Fuction Test - complete [facility] Phone: Start: 06-12-2014 End: 12-10-2015 Pulmonary stress test/simple Pulmonary stress testing; simple (eg, 6-minute walk) [facility] Phone: Start: 05-10-2014 End: 05-10-2014 Diagnostic colonoscopy Colonoscopy [facility] Work Phone: Start: 08-03-2010 PNEUMOCOCCAL: 65+ (2 - PCV) PN EUMOCOCCAL: 65+ (2 - PCV) [facility] Start: 1994 SHINGRIX VACCINE (1 of 2) MARI GRIX VACCINE (1 of 2) [facility] Start: 1962 ANNUAL PCP TEAM BEHAVIORAL MODIFICATION ASSISTANT [place] DISEASE VISIT ANNUAL PCP TEAM CHRONIC DISEASE VISIT [facility] Start: 1963 BP CONTROLLED (<130/80) BP CON TROLLED (<130/80) [facility] Start: 1962 HEPATITIS [facility] Start: 1963 SPIROMETRY SPIROMETRY [facility] Start: 1960 COVID-19 Vaccine (1 of 2) COVI D-19 Vaccine (1 of 2) [place], [place] Start: 1944 Hepatitis C screening Hepatitis C [facility] [place] Anion gap in Serum or Plasma [facility] Anion gap measurement [facility] Bacteria identified in Blood by Culture Blood Culture [facility] Bacteria identified in Urine by Culture Urine Culture [facility] Blood chemistry [facility] BUN/Creatinine ratio [facility] BUN/Creatinine ratio [facility] Calcium [Mass/volume ] in Serum or Plasma [facility] Calcium [Mass/volume ] in Serum or Plasma [facility] Carbon dioxide, tota l [Moles/volume] in Central venous blood [facility] Carbon dioxide, tota l [Moles/volume] in Serum or Plasma [facility] Chloride [Moles/volu me] in Serum or Plasma [facility] Colonoscopy [facility] Continuous pulse oximetry [facility] Creatinine [Mass/vol ume] in Serum or Plasma [facility] Creatinine [Moles/vo lume] in Serum or Plasma [facility] CT Chest WO contrast [facility] CTA Abdominal vessel s WO and W contrast IV [facility] Work Phone: Doppler ultrasonogra phy of aorta [facility] Doppler ultrasonogra phy of aorta [facility] EKG 12 lead [facility], [place] Comment on above: Daily until disconti nued starting 06/07/2020, 1 completed Glucose [Mass/volume ] in Serum or Plasma [facility] Glucose [Mass/volume ] in Serum or Plasma [facility] Measurement of renal function [facility] Measurement of renal function [facility] Oxygen therapy [[facility] Data Set] Initiate Oxygen Therapy Protocol Respiratory Care Routine Daily until discontinued starting 06/07/2020 [facility], [place] Comment on above: Daily until disconti nued starting 06/07/2020 Patient Education [facility] Work Phone: Patient referral [facility] Work Phone: Potassium [Moles/vol ume] in Serum or Plasma [facility] Potassium measurement [facility] Procedure [facility] Work Phone: Serum chloride measurement [facility] Sodium [Moles/volume ] in Serum or Plasma [facility] Sodium measurement [facility] Urea nitrogen [Mass/ volume] in Serum or Plasma [facility] Urea nitrogen [Mass/ volume] in Serum or Plasma [facility] US Carotid arteries [facility] Immunizations Immunization Date Immunization Notes Care Provider Fa cility 07-31-2022 tetanus toxoid, redu debora diphtheria toxoid, and acellular pertussis vaccine, adsorbed Dr. Spenser Sanchez Work Phone: [facility] 03-06-2022 influenza, injectabl e, quadrivalent, preservative free Dr. Spenser Sanchez Work Phone: [facility] 03-06-2022 influenza, seasonal, injectable Dr. Spenser Sanchez Work Phone: [facility] 03-25-2021 influenza, injectabl e, quadrivalent, preservative free Dr. Spenser Sanchez MD Work Phone: [facility] 03-25-[address] Spenser Sanchez MD Work Phone: [facility] 10-29-2020 Covid (Moderna) Dr. Jodi Sanchez Work Phone: [facility] 10-01-2020 Covid (Moderna) Dr. Jodi Sanchez Work Phone: [facility] 09-11-2020 Nilda (Moderna) Dr. Jodi Sanchez MD Work Phone: [facility] 08-14-2020 Nilda (Moderna) Dr. Jodi Sanchez MD Work Phone: [phone] [place] [address] 04-02-[address] Spenser Sanchez Work Phone: [facility] 03-04-2020 Influenza, injectabl e, Madin [place] Canine Kidney, preservative free, quadrivalent Dr. Spenser Sanchez MD Work Phone: [facility] 03-04-[address] Spenser Sanchez MD Work Phone: [facility] 03-13-2019 influenza, injectabl e, quadrivalent, preservative free Dr. Spenser Sanchez Work Phone: [facility] 03-13-2019 influenza, seasonal, injectable Dr. Spenser Sanchez Work Phone: [facility] 03-07-2019 Influenza, injectabl e, Madin [place] Canine Kidney, preservative free, quadrivalent Dr. Spenser Sanchez MD Work Phone: [facility] 01-30-2019 pneumococcal polysaccharide vaccine, [address] Spenser Sanchez MD Work Phone: [facility] 01-30-2019 tetanus toxoid, redu debora diphtheria toxoid, and acellular pertussis vaccine, adsorbed Dr. Spenser Sanchez MD Work Phone: [facility] 03-20-2015 influenza, injectabl e, quadrivalent, preservative free Dr. Spenser Sanchez MD Work Phone: [facility] 02-05-2015 pneumococcal conjuga te vaccine, [address] Spenser Sanchez MD Work Phone: [facility] 03-06-2014 influenza, injectabl e, quadrivalent, preservative free Dr. Spenser Sanchez MD Work Phone: [facility] 05-05-2013 influenza virus vacc ine, unspecified formulation Aren Mcarthur PA-C Work Phone: [facility] 02-05-2013 pneumococcal conjuga te vaccine, [address] Spenser Sanchez MD Work Phone: [facility] 03-29-2012 influenza virus vacc ine, unspecified formulation Aren Mcarthur PA-C Work Phone: [facility] Work Phone: 04-30-2011 influenza virus vacc ine, unspecified formulation Aren Mcarthur PA-C Work Phone: [facility] 03-25-2010 influenza virus vacc ine, unspecified formulation Aren Mcarthur PA-C Work Phone: [facility] Work Phone: 08-03-2009 pneumococcal polysaccharide vaccine, 23 valent Aren Mcarthur PA-C Work Phone: [facility] 02-08-2009 influenza virus vacc ine, unspecified formulation Aren Mcarthur PA-C Work Phone: [facility] Work Phone: 03-09-2008 influenza virus vacc ine, unspecified formulation Aren Mcarthur PA-C Work Phone: [facility] Work Phone: 01-24-2008 tetanus and diphther ia toxoids, adsorbed, preservative free, for adult use (2 Lf of tetanus toxoid and 2 Lf of diphtheria toxoid) Aren Mcarthur PA-C Work Phone: [facility] 04-04-2007 influenza virus vacc ine, unspecified formulation Aren Mcarthur PA-C Work Phone: [facility] Work Phone: 03-01-2006 influenza virus vacc ine, unspecified formulation Aren Mcarthur PA-C Work Phone: [facility] 03-12-2005 influenza virus vacc ine, unspecified formulation Aren Calvooney PA-C Work Phone: [facility] Work Phone: 02-01-2003 pneumococcal polysaccharide vaccine, 23 valent Aren Mcarthur PA-C Work Phone: [facility] Work Phone: 05-07-1997 diphtheria and tetan us toxoids, adsorbed for pediatric use Aren Mcarthur PA-C Work Phone: [facility] Work Phone: Payers Date Payer Category Payer Self-pay [id number] 2015 Private Health Insurance [id number] 2015 Private Health Insurance HUMANA HUMANA MEDICARE SUPPLEMENT [id number] 2015-Present [phone] [address] [address] [place] [address] Indemnity [id number] 2009 Medicare [id number] .[id number] 2009 Medicare MEDICARE MEDICAR E A AND B [id number] 2009-Present [phone] [address] [address] [place] [address] Medicare [id number] .[id number] Unknown [id number] 2.16.840.1.553624.3.579 .2.462 Unknown [id number] 2.16.840.1.430137.3.579 .2.462 Unknown [id number] 2.16.840.1.442640.3.579 .2.462 Unknown [id number] 2.16.840.1.255078.3.579 .2.462 Unknown [id number] 2.16.840.1.499201.3.579 .2.462 Unknown [id number] 2.16.840.1.341285.3.579 .2.462 Unknown [id number] 2.16.840.1.571351.3.579 .2.462 Unknown [id number] 2.16.840.1.449312.3.579 .2.462 Unknown [id number] 2.16.840.1.661480.3.579 .2.462 Unknown [id number] 2.16.840.1.722795.3.579 .2.462 Unknown [id number] 2.16.840.1.301843.3.579 .2.462 Unknown [id number] 2.16.840.1.420587.3.579 .2.462 Unknown [id number] 2.16.840.1.258585.3.579 .2.462 Unknown [id number] 2.16.840.1.723300.3.579 .2.462 Unknown [id number] 2.16.840.1.368606.3.579 .2.462 Unknown [id number] 2.16.840.1.892555.3.579 .2.462 Unknown [id number] 2.16.840.1.359209.3.579 .2.462 Unknown [id number] 2.16.840.1.363702.3.579 .2.462 Unknown [id number] 2.16.840.1.638538.3.579 .2.462 Unknown [id number] 2.16.840.1.889415.3.579 .2.462 Unknown [id number] 2.16.840.1.495016.3.579 .2.462 Unknown [id number] 2.16.840.1.015605.3.579 .2.462 Unknown [id number] 2.16840.1.325728.3.579 .2.462 Unknown [id number] 2.16.840.1.742637.3.579 .2.462 Unknown [id number] 2.840.1.826286.3.579 .2.462 Unknown [id number] 2.840.1.546539.3.579 .2.462 Unknown [id number] 2.840.1.685075.3.579 .2.462 Unknown [id number] 2.840.1.852427.3.579 .2.462 Unknown [id number] 2.840.1.613593.3.579 .2.462 Unknown [id number] 2.840.1.971509.3.579 .2.462 Unknown [id number] 2.840.1.295727.3.579 .2.462 Unknown [id number] 2.840.1.300037.3.579 .2.462 Unknown [id number] 2.840.1.874628.3.579 .2.462 Unknown [id number] .840.1.811675.3.579 .2.462 Unknown [id number] 2.840.1.560528.3.579 .2.462 Unknown [id number] 2.840.1.616613.3.579 .2.462 Unknown [id number] 2.840.1.868900.3.579 .2.462 Unknown [id number] 2.840.1.842301.3.579 .2.462 Unknown [id number] 2.840.1.422500.3.579 .2.462 Unknown [id number] 2.16.840.1.104889.3.579 .2.462 Unknown [id number] 2.16.840.1.440308.3.579 .2.462 Unknown [id number] 2.16.840.1.109784.3.579 .2.462 Unknown [id number] 2.16.840.1.440484.3.579 .2.462 Social History Date Type Detail Facility Start: 05-31-2020 End: 08-09-2024 Tobacco smoking status NHIS Former smoker [facility] Work Phone: End: 01-27-2001 History of tobacco use Current smoker [place] Start: 05-31-2020 End: 07-10-2022 Cigarettes smoked current (pack per day) - Reported [place] Start: 05-31-2020 End: 07-10-2022 Tobacco use and exposure Never used [place] Start: 05-31-2020 Alcohol intake Ex-drinker (finding) [place] Start: 05-27-2020 History SDOH Alcohol Frequency 1 [place] Start: 05-31-2020 History SDOH Alcohol Std Drinks 99 [place], [place] Start: 1945 Sex Assigned At Not on file M [place], [place] Exposure to SARS-CoV -2 (event) Not sure [place] Start: 12-29-2021 End: 08-03-2023 Tobacco smoking status ALIS Unknown if ever smoked [facility] Start: 08-31-2020 Rare [facility] Start: 08-31-2020 None [facility] Start: 06-29-2019 Spouse/ Signif icant Other [facility] Start: 08-31-2020 Non-smoker [facility] Start: 1945 Sex Assigned At Male W [facility] End: 01-27-2001 History of tobacco use Cigarette Smoker [facility] Work Phone: Start: 07-10-2022 Alcohol intake Current drinke r of alcohol (finding) [facility] Start: 03-03-2019 Alcohol Comment 1 shot at nigh t before bed [facility] Start: 07-18-2024 End: 08-11-2024 Sex Male (finding) [facility] Medical Equipment Procedure Code Equipment Code Equipment Origin al Text Equipment Identifier Dates Repair, hernia, inguinal, with mesh insertion [id number]) [id number] FDA Start: 06-19-2021 Wire Felicity .045in Stainless Steel 5.5in Fixation Trocar Smooth Guide - [id number] Start: 04-07-2019 [id number] FDA Start: 11-27-2022 Goals Date Patient Goal Desired Activity /State Functional Status Date Assessment Result Facility 08-11-2024 Functional status Up ad teri [facility] Work Phone: 07-28-2024 Functional status Standby Assist [facility] Work Phone: 11-16-2022 Functional status Up ad teri [facility] Work Phone: 07-26-2022 Functional status Ambulates;Bathroom Priv ilege [facility] Work Phone: Mental Status Date Assessment Result Facility 08-11-2024 Cognitive function Voice/Name [facility] Work Phone: 07-28-2024 Cognitive function Voice/Name [facility] Work Phone: 07-18-2024 Cognitive function Awake;Alert;Appropriat e [facility] Work Phone: 07-18-2024 Cognitive function Voice/Name [facility] Work Phone: 11-30-2022 Cognitive function Level Of Cons ciousness Awake;Alert;Appropriate [facility] Work Phone: 11-16-2022 Cognitive function Appropriate;Cooperativ e [facility] Work Phone: 11-15-2022 Cognitive function Voice/Name [facility] Work Phone: 11-14-2022 Cognitive function Voice/Name [facility] Work Phone: 11-01-2022 Cognitive function Awake;Alert;[facility] Work Phone: 08-08-2022 Cognitive function Awake;Alert;[facility] Work Phone: 07-26-2022 Cognitive function Appropriate;Cooperativ [facility] Work Phone: Clinical Notes 09-09-2015 to 09-27-2024 Note Date & Type Note Facility 09-27-2024 Evaluation note Diagnosis Onset Date Resolution Hypoxia chronic September 27, 2024 2:06pm Multiple nodules of lung chronic September 27, 2024 2:06pm 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 September 27 2:06pm [facility] Work Phone: 1(764) 261-809305-02-2025 Radiology Diagnostic study [facility]04-11-2025 [facility]04-10-2025 Consult note Author Saroj [facility] Note Date/Time August 11, 2024 12: 51pm [facility] Medical Records Department [address] [place] [address] Anesthesia Postop Eval II 08/10/241915 MR#: [id number] Acct: [id number] Name: BETTE CLEMENTS Rep #:[id number] : 1945 79 From: Saroj Richards MD PCP: CODY Burk Status:ADM IN Y Race: C Location: [place] [address] -1 Anesthesia Postop Eval I Sum Postop Eval [...] MD Cosigner Signature: Date CC: ~ Signed [facility] Work Phone: 1(747) 589-427104-10-2025 Progress note Author Tiki Sladivar [facility] Note Date/Time August 10, 2024 5:1 2pm [facility] Medical Records Department [address] [place] [address] Progress Note - Hospitalist 08/10/24 1708 MR#: [id number] Acct: [id number] Name: BETTE CLEMENTS Rep #:[id number] : 1945 79 From: Tiki Saldivar MD PCP: CODY Burk Status:ADM KISHORE Location: [place] [address] Reason for Visit Reason for Visit: Diagnoses [...] 08/10/24 13:37 RMA (Rec: 08/10/24 13:37 RMA [id number]) Nutrition Malnutrition Evidence of Yes Malnutrition Exists [...] 74.9 H, Lymph % (Auto) 11.4 L, [place] % (Auto) 7.6, Eos % (Auto) 4.8, [...] 79.5 H, Lymph % (Auto) 8.1 L, [place] % (Auto) 6.8, Eos % (Auto) 4.4, [...] documentation, 36Minutes Charges/Coding Visit Charges Inpatient E&M: 83377 Subs Hosp L2 08/10/24 1712 <Electronically signed by Tiki Saldivar MD> Cosigner Signature (if applicable): CC: ~ Signed [facility] Work Phone: 1(139) 342-412604-10-2025 Consult note Author Ryan Islas [facility] Note Date/Time August 10, 2024 3:3 2pm [facility] Medical Records Department [address] [place] [address] Anesthesia Postop Eval I 08/10/24 1531 MR#: [id number] Acct: [id number] Name: BETTE CLEMENTS Rep #:[id number] : 1945 79 From: Ryan Islas PCP: KAI BurkC Status:ADM KISHORE Y Race: C Location: MS3 MS304 -1 Anesthesia: Postop Eval I Current Vital Signs [...] document: Postop Eval 1 completed: Yes 08/10/24 6062 <Electronically signed by Ryan Islas > Date _ Ryan Amezquita Signature: Date CC: ~ Signed [facility] Work Phone: 1(950) 957-238304-10-2025 Progress note Author Faraz Friend [facility] Note Date/Time August 10, 2024 2:5 3pm [facility] Medical Records Department [address] [place] [address] Progress Note 08/10/24 1452 MR#: [id number] Acct: [id number] Name: BETTE CLEMENTS Rep #:[id number] : 1945 79 From: Faraz Gonzáles DO PCP: Jeremiah Mckeon NP-C Status:ADM KISHORE [facility] Note Patient did have some bleeding [...] of his rectum. Visit Charges Inpatient E&M: 07569 Subs Hosp L3 08/10/24 8411 <Electronically signed by Faraz Gonzáles DO> Faraz Gonzáles DO Cosigner Signature (if applicable): CC: ~ Signed [facility] Work Phone: 1(347) 801-732904-10-2025 Consult note Author Saroj Richards [facility] Note Date/Time August 10, 2024 2:1 6pm [facility] Medical Records Department [address] [place] [address] Pre-Anesthesia Evaluation 08/10/24 1407 MR#: [id number] Acct: [id number] Name: BETTE CLEMENTS Rep #:[id number] : 1945 79 From: Saroj Richards MD PCP: CODY Burk Status:ADM KISHORE Y Race: C Location: DC3 [place]304 -1 ASA Classification* ASA Classification ASA [...] of bleeding. 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 helper Hx Hospitalization No 07/17/24 13:20 Any Problems [...] sips of water?: No PONV PONV - dope house operator helper: PONV - dope house operator helper Female HX of Motion Sickness HX of N/V After Surgery Non-Smoker Duration of Surgery greater than 60 minutes Number of Risk Factors PONV Score Height & Weight Height & Weight: Anesthesia: Height & Weight Height 5 ft 7 in 08/10/24 13:17 Weight: 60.9 kg 08/10/24 13:17 Body Mass Index (BMI) 21.0 08/09/24 19:50 Respiratory Assessment Respiratory Assessment - dope house operator helper: Respiratory Tract Infection Hx - dope house operator helper Hx Respiratory Tract Infection No 08/10/24 02:22 STOP Sleep Apnea STOP Sleep Apnea - dope house operator helper: STOP Sleep Apnea - dope house operator helper Hx Hypertension Yes 08/09/24 19:50 Hx Sleep [...] Tobacco Use History Tobacco Use History - dope house operator helper: Tobacco Use History - dope house operator helper Tobacco Use Non-smoker 02/28/24 10:04 Smoking Status Former smoker 08/09/24 19:50 Hx Tobacco Use No 08/09/24 19:50 Years Smoking Packs Smoked per Day Smoking Cessation Date was No - quit smoking greater 08/09/24 19:50 within the last 15 years than 15 years ago Hx Smoking Cessation Date 05/03/00 08/09/24 19:50 Hx Smoking Cessation Counseling Hematologic Medial History Hematologic Hx - 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 house operator helper: 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 Hx of Blood Transfusion Yes 08/09/24 19:50 [...] confused, unrespo /Reproduction History /Reproductive History - dope house operator helper: /Reproductive Hx- dope house operator helper Hx Now No 08/10/24 02:22 Gestational Age [...] 08/10/24 02:02 08/10/24 02:18 Fluticasone 0.05% 1 [place] Nasal.Sry NASAL 1 spray BID PRN PRN [...] Isosorbide Mononitrate 30 Mg Tablet PO DAILY [facility] Protocol Sodium Chloride 10 - 40 ml 08/09/24 20:02 08/10/24 13:59 0.9% Saline Lock 10 Ml Syringe IV 10 ml UD PRN Administration SALINE FLUSH Tamsulosin HCl 0.4 mg 08/09/24 22:00 08/10/24 09:59 Tamsulosin Hcl 0.4 Mg Capsule PO Not Given BID [facility] Verapamil HCl 240 mg 08/09/24 22:00 08/09/24 20:42 Verapamil Sr 240 Mg Tablet PO 240 mg QHS RAJ Administration Protocol [facility] Medical History GI bleed Marijuana use Prostate [...] (primary) hypertension Hyperlipidemia 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 Old inferior [...] mL hydrocortisone acetate 25 mg 25 mg LA QHS proctitis #1 2 ea 08/02/24 08/08/24 [...] Saroj Jacomeignakira Signature: Date CC: ~ Signed [facility] Work Phone: 1(993) 395-151704-10-2025 Procedure [facility] 08-10-2024 Procedure [facility]04-10-2025 Discharge summary Author Viral Gutiérrez [facility] Note Date/Time August 09, 2024 11:0 3pm [facility] Medical Records Department [address] [place] [address] Emergency Department Summary 08/09/24 MR#: [id number] Acct: [id number] Name: BETTE CLEMENTS Rep #:[id number] : 1945 79 From: Viral Garcia PCP: CODY Burk Status:ADM KISHORE Location: [place] [address] HPI HPI - GI History of Present Illness Chief Complaint: GI Bleed Informant: patient Narrative Narrative: Recurrent bright red blood per rectum for last 5 days. 4-5 a day noting clots. He is on Plavix no other antiplatelets or anticoagulants. No abdominal pain. On and off symptoms for the past few months. He is seeing GI DrNeville Friend had a colonoscopy July 18 reporting [...] a call back. Prior similar symptoms: Yes PFSH [facility] Medical History GI bleed Marijuana use Prostate [...] (primary) hypertension Hyperlipidemia 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 Old inferior [...] mL hydrocortisone acetate 25 mg 25 mg LA QHS proctitis #1 2 ea 08/02/24 08/08/24 [...] source of rebleed. I discussed with GI Dr. Nivia, would like admission to medicine with bowel prep. He will likely plan recolonoscopy with intervention as needed. Haywood score is 14. I discussed with hospitalist Dr. Fontana for admission to the medical floor. Re-evaluation: stable Disposition discussed with patient/family/significant other: Patient Case discussed with consulting clinician: N/A This note was generated with Accessbio dictation software. It may contain incorrectwords, spelling, [...] 74.9 H Lymph % (Auto) 11.4 L [place] % (Auto) 7.6 Eos % (Auto) 4.8 [...] of colon Disposition Disposition: Acute Care Hospital [facility] Discharge Date/Time: 08/09/24 18:54 What to do if you have Problems For any increased pain, shortness of breath, bleeding, nausea or vomiting, chestpain, or any unexpected problems, contact your Primary Care Provider. Call [facility] ([phone]) or report to the closest Emergency Room. Call 911 if necessary. 08/09/242302 <Electronically signed by Viral Garcia> Cosigner Signature (if applicable): CC: CODY Mckeon ~ Signed [facility] Work Phone: 1(424) 213-714204-09-2025 Consult note Author Faraz Friend [facility] Note Date/Time August 09, 2024 8:38 pm [facility] Medical Records Department [address] [place] [address] Consultation - GI 08/09/242033 MR#: [id number] Acct: [id number] Name: BETTE CLEMENTS Rep #:[id number] : 1945 79 From: Faraz Gonzáles DO PCP: CODY Burk Status:ADM KISHORE Location: [place] [address] HPI Consult Data Date of Consult: 08/09/24 [...] the last few days. No lightheaded symptoms. [facility] Medical History GI bleed Marijuana use Prostate [...] (primary) hypertension Hyperlipidemia 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 Old inferior [...] mL hydrocortisone acetate 25 mg 25 mg LA QHS proctitis #1 2 ea 08/02/24 08/08/24 [...] 74.9 H, Lymph % (Auto) 11.4 L, [place] % (Auto) 7.6, Eos % (Auto) 4.8, [...] his rectum. Charges/Coding Visit Charges Inpatient E&M: 20049 Init Hosp L3 08/09/242037 <Electronically signed by Faraz Gonzáles DO> Cosigner Signature (if applicable): CC: CODY Mckeon~ Signed [facility] Work Phone: 1(536) 311-492304-09-2025 History and physical note Author Rhys Fontana [facility] Note Date/Time August 09, 2024 7:10 pm [facility] Medical Records Department [address] [facility] [place] [address] H&P Exam - Hospitalist 08/09/24 1903 MR#: [id number] Acct: [id number] Name: BETTE CLEMENTS Rep #:[id number] : 1945 79 From: Rhys fallon MD PCP: CODY Burk Status:ADM KISHORE Location: [facility] [id number] HPI - General General Date of Admission: [...] gastroenterology who recommended admission for colonoscopy tomorrow. [facility] Medical History (Updated 08/09/24 @ 18:32 by [...] (primary) hypertension Hyperlipidemia 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 Old inferior [...] mL hydrocortisone acetate 25 mg 25 mg LA QHS proctitis #1 2 ea 08/02/24 08/08/24 [...] 74.9 H, Lymph % (Auto) 11.4 L, [place] % (Auto) 7.6, Eos % (Auto) 4.8, [...] with colleagues Charges/Coding Visit Charges Inpatient E&M: 41871 Init Hosp L2 08/09/241909 <Electronically signed by Rhys Fontana MD> Cosigner Signature (if applicable): CC: HAM PASSER-C Jeremiah Mckeon; Dr. Rhys Fontana MD~ Signed [facility] Work Phone: 1(609) 130-726403-28-2025 Discharge summary Author Rhys Fontana [facility] Note Date/Time July 28, 2024 12: 59pm [facility] Medical Records Department [address] [place] [address] Instructions for Home/Discharge Instructions 07/28/24 1257 MR#: [id number] Acct: [id number] Name: BETTE CLEMENTS Rep #:[id number] : 1945 79 From: Rhys fallon MD [...] Rhys Fontana Primary Care Provider: Jeremiah Mckeon [facility] Consulting Providers: Tiki Saldivar Discharge Orders/Prescriptions Prescriptions: Continued nitroglycerin 0.4 mg Tablet, Sublingual 0.4 mg sublingual Q5M PRN (Reason: Cardiac/Chest Pain) Qty: 20 0RF (DME) Disability Placard See Rx Instructions .ROUTE .MEDSUPPLY Qty: 1 0RF Rx Instructions: sounzgx1902/12/2028 formoterol fumarate [Perforomist] 20 mcg/2 mL solution [...] Practice Prof] - 08/02/24 10:00 am Jeremiah Mckeon NP-C [Primary Care Provider] - Within 1 Week Disposition Disposition (needs filled in before D/C Order can be placed): Home, Self Care 07/28/24 1300<Electronically signed by Rhys Fontana MD>Rhys Fontana MD CC: CODY Mckeon; Dr. Tiki Saldivar MD ~ Signed [facility] Work Phone: 1(328) 558-481403-28-2025 [facility]03-27-2025 Discharge summary Author Devon Reagan [facility] Note Date/Time July 27, 2024 5:1 5pm [facility] Medical Records Department [address] [place] [address] Emergency Department Summary 07/27/24 MR#: [id number] Acct: [id number] Name: BETTE CLEMENTS Rep #:[id number] : 1945 79 From: Devon huff DO PCP: CODY Burk Status:ADM KISHORE Location: [place] [address] HPI History of Present Illness Chief Complaint: [...] intact Psych: Cooperative, appropriate mood and affect [facility] Medical History Marijuana use Prostate disease Shortness [...] (primary) hypertension Hyperlipidemia 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 Old inferior [...] 73.6 H Lymph % (Auto) 13.4 L [place] % (Auto) 5.5 Eos % (Auto) 6.0 [...] Clarity Clear Urine pH 6.0 Ur Specific [place] 1.015 Urine Protein 15 H Urine Glucose [...] Discharge Plan Disposition Disposition: Acute Care Hospital [facility] Discharge Date/Time: 07/27/24 16:35 What to do if you have Problems For any increased pain, shortness of breath, bleeding, nausea or vomiting, chestpain, or any unexpected problems, contact your Primary Care Provider. Call [facility] ([phone]) or report to the closest Emergency Room. Call 911 if necessary. 07/27/245 <Electronically signed by Devon Reagan DO> Cosigner Signature (if applicable): CC: CODY Mckeon ~ Signed [facility] Work Phone: 1(181) 861-582303-27-2025 History and physical note Author Tiki Saldivar [facility] Note Date/Time July 27, 2024 4:3 5pm [facility] Medical Records Department [address] [place] [address] H&P Exam - Hospitalist 07/27/24 1608 MR#: [id number] Acct: [id number] Name: BETTE CLEMENTS Rep #:[id number] : 1945 79 From: Tiki Saldivar MD PCP: CODY Burk Status:ADM KISHORE Location: [place] [address] HPI - General General Date of Admission: 07/27/24 Date of Service: 07/27/24 Chief Complaint: Diarrhea and blood in stool HPI Narrative BETTE CLEMENTS, is a 79M with history of coronary artery disease status post PCI onPlavix, prostate cancer status post radiation and current hormonal therapy with Dr. Montaño, previous colon cancer status post colon resection, previous GI bleed[facility] 07/27/2024 for evaluation of repeat [...] no nausea or vomiting, no urinary symptoms. 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 Tiki Saldiavr MD~ Signed [facility] Work Phone: 1(164) 741-550503-27-2025 Radiology Diagnostic study [facility]03-18-2025 Procedure [facility]03-18-2025 Procedure [facility]03-18-2025 Consult note Author Sinan Parmar [facility] Note Date/Time July 18, 2024 12: 40pm [facility] Medical Records Department [address] [place] [address] Pre-Anesthesia Evaluation 07/18/24 1236 MR#: [id number] Acct: [id number] Name: BETTE CLEMENTS Rep #:[id number] : 1945 79 From: Sinan Parmar MD PCP: CODY Burk Status:REG SDC Y Race: C Location: [place] [address] ASA Classification* ASA Classification ASA Classification: 3 [...] Preop lab: CBC WBC 10.2 K/mm3 (4.4-11.0) 1229/24 10:54 04/30/24 RBC 3.68 M/mm3 (4.6-6.2) L [...] Procedure(s): CSCOPE 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 helper Hx Hospitalization No 07/17/24 13:20 Any Problems [...] take am of surgery PONV PONV - dope house operator helper: PONV - dope house operator helper Female No 07/17/24 13:20 HX of Motion [...] 07/18/24 12:21 Respiratory Assessment Respiratory Assessment - dope house operator helper: Respiratory Tract Infection Hx - dope house operator helper Hx Respiratory Tract Infection No 07/17/24 13:20 STOP Sleep Apnea STOP Sleep Apnea - dope house operator helper: STOP Sleep Apnea - dope house operator helper Hx Hypertension Yes 07/17/24 13:20 Hx Sleep [...] Tobacco Use History Tobacco Use History - dope house operator helper: Tobacco Use History - dope house operator helper Tobacco Use Non-smoker 02/28/24 10:04 Smoking Status Former smoker 07/17/24 13:20 Hx Tobacco Use No 07/17/24 13:20 Years Smoking Packs Smoked per Day Smoking Cessation Date was No - quit smoking greater 07/17/24 13:20 within the last 15 years than 15 years ago Hx Smoking Cessation Date 05/03/00 07/17/24 13:20 Hx Smoking Cessation Counseling Hematologic Medial History Hematologic Hx - dope house operator helper: Hematologic 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 Hx of Blood Transfusion Yes 07/17/24 13:20 [...] confused, unrespo /Reproduction History /Reproductive History - dope house operator helper: /Reproductive Hx- dope house operator helper Hx Now No 07/17/24 13:20 Gestational Age (in weeks): EDC: Hx Hx Para Hx Section SAB No 07/17/24 13:20 [facility] Medical History (Updated 07/17/24 @ 13:30 by [...] (primary) hypertension Hyperlipidemia 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 Old inferior [...] MD Cosigner Signature: Date CC: ~ Signed [facility] Work Phone: 1(377) 419-618203-18-2025 [facility]02-12-2025 Evaluation note* Diagnosis Onset Date Resolution Status [...] August 9:53am Angiodysplasia of colon acute A 2024 5:09pm Personal history of other malignant neoplasm of large intestine inactive August 10, 2024 5:09pm Rectal bleeding inactive August 5:09pm [facility] Work Phone: 1(805) 181-453901-09-2025 Evaluation note* Diagnosis Onset Date Resolution Status [...] bleeding inactive July 11:49am Dehydration acute July 27 025 [...] 2024 5:09pm Rectal bleeding inactive August 5:09pm [facility] Work Phone: 1(990) 330-128112-18-2024 Evaluation note* Diagnosis Onset Date Resolution Status Admit Date BPH (benign prostatic hyperplasia) chronic April 19, 024 12:55pm COPD (chronic obstructive pulmonary disease) chronic April 12:55pm Hypertension chronic April 12:55pm Insomnia chronic April 19, 2024 12:55pm Hypokalemia resolved April 12:55pm Carotid stenosis, left acute [facility] 2024 10:53am History of endovascular sten t [...] acid level acute July 27, 2024 4:08pm [facility] Work Phone: 1(955) 571-924912-18-2024 Evaluation note* Diagnosis Onset Date Resolution Status Admit Date BPH (benign prostatic hyperplasia) chronic April 19, 2 024 12:55pm COPD (chronic obstructive pulmonary disease) chronic April 12:55pm Hypertension chronic April 12:55pm Insomnia chronic April 19, 2024 12:55pm Hypokalemia resolved April 12:55pm Carotid stenosis, left acute [facility] 2024 10:53am History of endovascular sten t [...] 2024 9:53am Rectal bleeding acute August 9:53am [facility] Work Phone: 1(605) 667-243412-18-2024 Evaluation note* Diagnosis Onset Date Resolution Status Admit Date BPH (benign prostatic hyperplasia) chronic April 19, 024 12:55pm COPD (chronic obstructive pulmonary disease) chronic April 12:55pm Hypertension chronic April 12:55pm Insomnia chronic April 19, 2024 12:55pm Hypokalemia resolved April 12:55pm Carotid stenosis, left acute [facility] 2024 10:53am History of endovascular sten t [...] 2024 5:09pm Rectal bleeding acute August 5:09pm [facility] Work Phone: 1(802) 303-280912-15-2024 Consult note Author Sinan Parmar [facility] Note Date/Time July 18, 2024 3:5 7pm [facility] Medical Records Department [address] [facility] [place] [address] Anesthesia Postop Eval II 07/18/24 1523 MR#: [id number] Acct: [id number] Name: BETTE CLEMENTS Rep #:[id number] : 1945 79 From: Sinan Parmar MD PCP: CODY Burk Status:REG [facility] Y Race: C Location: [place] [address] Anesthesia Postop Eval I Sum Postop Eval Completion status Anesthesia document: Postop Eval 1 completed: Yes Anesthesia Postop Eval I Summary Anesthesia Postop Eval I Summary: Anesthesia Postop Eval I: Assessment Summary Airway patent Yes 07/18/24 15:02 FOOT SETTER.HBARR Spontaneous unlabored Yes 07/18/24 15:02 FOOT SETTER.HBARR respirations Mental status Awake 07/18/24 15:02 FOOT SETTER.HBARR nausea No 07/18/24 15:02 FOOT SETTER.HBARR Vomiting No 07/18/24 15:02 FOOT SETTER.HBARR Anesthesia Postop Eval I: Fluid Summary Crystalloid volume administer 10 07/18/24 15:02 FOOT SETTER.HBARR (ml) Colloids volume administered ( ml) Blood Product volume administered (ml) Total IV fluid infused 10 07/18/24 15:02 FOOT SETTER.HBARR Anesthesia Postop Eval I: Summary Notes Anesthesia Complication No 07/18/24 15:02 FOOT SETTER.HBARR Anesthesia Complication Comment: Post-operative progress note Anesthesia: Postop Eval II Evaluation Mental status: Awake Pain Level: 0 nausea: No Vomiting: No Complications Anesthesia Complication: No 07/18/24 1523 <Electronically signed by Sinan Parmar MD> Date _ Sinan Parmar MD Cosigner Signature: Date CC: ~ Signed [facility] Work Phone: 1(155) 942-778211-19-2024 Evaluation note* Diagnosis Onset Date Resolution Status Admit Date Abdominal pain acute March 032023 1:25pm Personal history of other malignant neoplasm of large intestine acute March 21, 024 1:25pm Rectal bleeding acute March 21, 2024 1:25pm BPH (benign prostatic hyperplasia) chronic April 19 2 024 12:55pm COPD (chronic obstructive pulmonary disease) chronic April 12:55pm Hypertension chronic April 12:55pm Insomnia chronic April 19, 2024 12:55pm Hypokalemia resolved April 12:55pm Carotid stenosis, left acute [facility] 2024 10:53am History of endovascular sten t [...] 2024 11:49am Rectal bleeding acute July 11:49am [facility] Work Phone: 1([phone]) 178-630107-17-2023 Progress note Author Heri Ewing [facility] November 16, 2022 10:55am Note Date/Time November 16, 2022 7:57 am [facility] Medical Records Department [address] [facility] [place] [address] Progress Note - Hospitalist 11/16/22 0756 MR#: [id number] Acct: [id number] Name: BETTE CLEMENTS Rep #:[id number] : 1945 77 From: Heri Ewing DO PCP: Dr. 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 Spenser Sanchez MD Status:A DM IN Location: [place] [address] Subjective Subjective Following for CKD. The patient [...] (Auto) 69.1, Lymph % (Auto) 13.7 L, [place] % (Auto) 6.3, Eos % (Auto) 9.4 [...] Clarity Clear, Urine pH 6.5, Ur Specific [place] 1.010, Urine Protein Negative, Urine Glucose (UA) [...] monitored by PCP. He has not seen gear straightener in the past. Renal function has been [...] Cosigner Signature (if applicable): CC: ~ Signed [facility] Work Phone: 1(947) 358-911307-16-2023 Progress note Author Heri Ewing [facility] November 15, 2022 12:33pm Note Date/Time November 15, 2022 8:26 am [facility] Medical Records Department [address] [place] [address] Progress Note - Hospitalist 11/15/22823 MR#: [id number] Acct: [id number] Name: BETTE CLEMENTS Rep #:[id number] : 1945 77 From: Heri Ewing DO PCP: Dr. 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 (11/14/22) Old [...] (Auto) 69.1, Lymph % (Auto) 13.7 L, [place] % (Auto) 6.3, Eos % (Auto) 9.4 [...] * heparin gtt * tentative plan for [facility] on 11/16 PLAN: Plan Chronic conditions: * [...] no intubation Charges/Coding Visit Charges Inpatient E&M: 64948 Subs Hosp L2 11/15/22 1233 <Electronically signed by Heri Ewing DO> Cosigner Signature (if applicable): CC: ~ Signed [facility] Work Phone: 1(483) 809-600807-16-2023 Progress note Author Bethel Gallegos [facility] November 15, 2022 12:20pm Note Date/Time November 15, 2022 11:3 8am [facility] Medical Records Department [address] [place] [address] Progress Note - Cardiology 11/15/22 1131 MR#: [id number] Acct: [id number] Name: BETTE CLEMENTS Rep #:[id number] : 1945 77 From: Bethel Gallegos MD PCP: Dr. Spenser Sanchez MD Status:A DM IN Location: [place] [address] Subjective Subjective Symptoms reported today No events noted from last night. 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 Patient also had CKD, seen by gear straightener on this admission Cardiac care plan recommendation We will plan for cardiac catheterization tomorrow if renal function is stable By his primary feather duster winder Dr. Steinberg With minimal contrast no left ventriculogram If significant coronary atherosclerosis identified Will stage for elective PCI. Minimize risk of contrast-induced nephropathy We will continue current medical treatment. Also will start on rehydration overnight Plan of cardiac catheterization discussed with the patient and nursing staff. 11/15/22 1220 <Electronically signed by Bethel Gallegos MD> Cosigner Signature (if applicable): CC: ~ Signed [facility] Work Phone: 1([phone]) 596-289107-15-2023 Consult note Author Good Mensah tr [facility] November 14, 2022 7:31pm Note Date/Time November 14, 2022 6:05 pm [facility] Medical Records Department [address] [place] [address] Consultation - Nephrology 11/14/22 1756 MR#: [id number] Acct: [id number] Name: BETTE CLEMENTS Rep #:[id number] : 1945 77 From: Good barfield MD PCP: Dr. Spenser Sanchez MD Status:A DM IN Location: [facility] [id number] Assessment & Plan Assessment/Plan (1) Chronic [...] monitored by PCP. He has not seen gear straightener in the past. Renal function has been [...] MRA. He was not onscheduled diuretic either. 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 Physical Exam Narrative General: Alert and oriented [...] % (Auto) 63.8, Lymph % (Auto) 19.2, [place] % (Auto) 7.4, Eos % (Auto) 8.5 [...] Physician: Spenser Sanchez Performed By: Laila Turner, [facility] 11/14/221930 <Electronically signed by Good Morse MD> Cosigner Signature (if applicable): CC: Dr. Delma Gonsalves MD; Dr. Spenser Sanchez MD; Dr. Bethel Gallegos MD; Dr.Natthavat Mini MD~ Signed [facility] Work Phone: [phone] Consult note Author [facility] November 14, 2022 12:18pm Note Date/Time November 14, 2022 12:1 0pm [facility] Medical Records Department [address] [place] [address] Consultation - Cardiology 11/14/22 1158 MR#: [id number] Acct: [id number] Name: CLEMENTSMARYT Destiny Rep #:[id number] : 1945 77 From: Bethel Gallegos MD PCP: Dr. 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 Steinberg I requested the gear straightener consultation the patient IV hydration with the planof repeating the BMP and cardiac markers. Explained the need of cardiac catheterization in detail to the patient and family and nursing staff. 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 Back pain [...] for nebulization 0.5 mg (2 mL) inhalation N02Nloin #180 mL 03/25/22 [Rx Last Taken 07/23/22] [...] calcium 325 mg-vit D3 12.5 mcg-zinc 2.75 io-solflp-thgbbhglv tablet (Citracal-T3Cgingfj Plus) 2 tab PO BID bone deficiency [...] denied symptoms of chest pain/chest pain resolved surveillance monitor normal sinus rhythm Cardiac exam S1-S2 [...] and Output for Last 24 Hours 11/12/22 11/13/2223 23:59 23:59 23:59 Intake Total 500 / [...] % (Auto) 63.8, Lymph % (Auto) 19.2, [place] % (Auto) 7.4, Eos % (Auto) 8.5 [...] Neut % (Auto) 63.8,Lymph % (Auto) 19.2, [place] % (Auto) 7.4, Eos % (Auto) 8.5 [...] 2:44 EDT Reading Location ID and State: [facility] / [place] Tel , Service support , 11/14/22 1218 <Electronically signed by Bethel Gallegos MD> Cosigner Signature (if applicable): CC: Dr. Delma Gonsalves MD; Dr. Spenser Sanchez MD; Dr. Bethel Gallegos MD; Dr.Natthavat Mini MD~ Signed [facility] Work Phone: 1([phone]) 266-771407-15-2023 Evaluation note* Diagnosis Onset Date Resolution Status Insomnia chronic Trigger finger acute Acute non-ST elevation myoca rdial infarction (NSTEMI) November 14, 2022 acute Atherosclerotic heart diseas e of yurok coronary artery without angina pectoris acute NSTEMI, initial episode of care acute History of endovascular sten t graft for abdominal aortic aneurysm (AAA) June 25, 2020 resolved Hypokalemia resolved Acute non-ST elevation myoca rdial infarction (NSTEMI) November 14, 2022 acute Atherosclerotic heart diseas e of yurok coronary artery without angina pectoris acute History of endovascular sten t graft for abdominal aortic aneurysm (AAA) June 25, 2020 resolved [id number] acute Acute non-ST elevation myoca rdial infarction (NSTEMI) November 14, 2022 acute Atherosclerotic heart diseas e of yurok coronary artery without angina pectoris acute SOB (shortness of breath) ac [place] History of endovascular sten t graft for abdominal aortic aneurysm (AAA) June 25, 2020 resolved [facility] Work Phone: 1(278) 904-337107-15-2023 Evaluation note* Diagnosis Onset Date Resolution Status Trigger finger acute Acute non-ST elevation myoca rdial infarction (NSTEMI) November 14, 2022 acute Atherosclerotic heart diseas e of yurok coronary artery without angina pectoris acute NSTEMI, initial episode of care acute History of endovascular sten t graft for abdominal aortic aneurysm (AAA) June 25, 2020 resolved Hypokalemia resolved Acute non-ST elevation myoca rdial infarction (NSTEMI) November 14, 2022 acute Atherosclerotic heart diseas e of yurok coronary artery without angina pectoris acute History of endovascular sten t graft for abdominal aortic aneurysm (AAA) June 25, 2020 resolved [id number] acute Atherosclerotic heart diseas e of yurok coronary artery without angina pectoris acute HFrEF (heart failure with re duced ejection fraction) acute SOB (shortness of breath) ac [place] History of endovascular sten t graft for abdominal aortic aneurysm (AAA) June 25, 2020 resolved [id number] acute Atherosclerotic heart diseas e of yurok coronary artery without angina pectoris acute HFrEF (heart failure with re duced ejection fraction) acute SOB (shortness of breath) ac [place] History of endovascular sten t graft for abdominal aortic aneurysm (AAA) June 25, 2020 resolved Asthmatic bronchitis with exacerbation acute [facility] Work Phone: 1(413) 675-322507-15-2023 Progress note Author Heri Ewing [facility] November 14, 2022 11:48am Note Date/Time November 14, 2022 8:45 am [facility] Medical Records Department [facility] [place] [address] Progress Note - Hospitalist 11/14/22 0839 MR#: [id number] Acct: [id number] Name: BETTE CLEMENTS Rep #:[id number] : 1945 77 From: Heri Ewing DO PCP: Dr. Spenser Sanchez MD Status:A DM IN Location: [place] [address] Reason for Visit Reason for Visit: Diagnoses [...] % (Auto) 63.8, Lymph % (Auto) 19.2, [place] % (Auto) 7.4, Eos % (Auto) 8.5 [...] of acute cardiopulmonary disease. Electronically Signed: Brannon DegrootDO at 2:44 EDT , Physical Exam Const [...] * heparin gtt * tentative plan for [facility] on 11/16 PLAN: Plan Chronic conditions: * [...] no intubation Charges/Coding Visit Charges Inpatient E&M: 50329 Subs Hosp L2 11/14/22 1148 <Electronically signed by Heri Ewing DO> Cosigner Signature (if applicable): CC: ~ Signed [facility] Work Phone: 1([phone]) 683-339307-15-2023 Discharge summary [facility] November 14, 2022 7:09am Note Date/Time November 14, 2022 5:13 am [facility] Medical Records Department [address] [place] [address] Emergency Department Summary 11/14/22 MR#: [id number] Acct: [id number] Name: BETTE CLEMENTS Rep #:[id number] : 1945 77 From: Rafa Hernandez DO PCP: Dr. Spenser Sanchez MD Status:A DM IN Location: [address] History of Present Illness Chief Complaint: [...] to bring the patient in for evaluation. [facility] Medical History AAA (abdominal aortic aneurysm) Abdominal aortic aneurysm (AAA) greater than 5.5 cm in diameter in male Alcohol abuse Allergy to dog dander Anemia Arthritis Asthma 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 Back pain [...] for nebulization 0.5 mg (2 mL) inhalation D99Xyzgv #180 mL 03/25/22 [Rx Last Taken 07/23/22] [...] % (Auto) 63.8 Lymph % (Auto) 19.2 [place] % (Auto) 7.4 Eos % (Auto) 8.5 [...] (Auto) Neut % (Auto) Lymph % (Auto) [place] % (Auto) Eos % (Auto) Baso % [...] acute cardiopulmonary disease. Electronically Signed: Brannon Degroot at 2:44 EDT , Chest x-rays interpreted by the emergency medicine physician reveals no acute infiltrate pneumothorax or pleural effusion Management Discussion w/another healthcare provider: Hospitalist and Car Whacker Discharge Plan Dx/Rx/DC Orders Clinical Impression: Acute non-ST elevation myocardial infarction (NSTEMI), Essential (primary) hypertension, Hyperlipidemia, 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 classification Disposition Disposition: Acute Care Hospital [facility] Discharge Date/Time: 11/14/22 06:18 What to do if you have Problems For any increased pain, shortness of breath, bleeding, nausea or vomiting, chestpain, or any unexpected problems, contact your Primary Care Provider. Call [facility] ([phone]) or report to the closest Emergency Room. Call 911 if necessary. 11/14/22 07 <Electronically signed by Rafa Hernandez DO> Cosigner Signature (if applicable): CC: Dr. Spenser Sanchez MD ~ Signed [facility] Work Phone: 1(862) 999-702107-15-2023 History and physical note Author Delma Gonsalves [facility] November 14, 2022 6:15am Note Date/Time November 14, 2022 5:15 am [facility] Medical Records Department [address] [place] [address] H&P Exam - Hospitalist 11/14/22 0512 MR#: [id number] Acct: [id number] Name: BETTE CLEMENTS Rep #:[id number] : 1945 77 From: Delma Gonsalves MD PCP: Dr. Spenser Sanchez MD Status:A DM IN Location: [facility] [id number] HPI - General General Date of [...] with Dr. Steinberg who presents to the [facility] ED on 11/14/22 with history of onset [...] case was discussed per ED physician with feather duster winder Dr. Henson noted possible catheterization Wednesday if remain chest pain-free. [facility] Medical History AAA (abdominal aortic aneurysm) Abdominal aortic aneurysm (AAA) greater than 5.5 cm in diameter in male Alcohol abuse Allergy to dog dander Anemia Arthritis Asthma 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 Back pain [...] for nebulization 0.5 mg (2 mL) inhalation G23Rbxms #180 mL 03/25/22 [Rx Last Taken 07/23/22] [...] % (Auto) 63.8, Lymph % (Auto) 19.2, [place] % (Auto) 7.4, Eos % (Auto) 8.5 [...] 2:44 EDT Reading Location ID and State: [facility] / [place] Tel , Service support , Assessment & Plan Assessment/Plan (1) NSTEMI, [...] with Dr. Steinberg who presents to the [facility] ED on 11/14/22 with history of onset [...] 60 minutes. Charges/Coding Visit Charges Inpatient E&M: 61395 Init Hosp L2 Procedures Hospitalists Procedures: 37760 Advncd Care Plan 30 Min 11/14/22 0614 <Electronically signed by Dlema Gonsalves MD> Cosigner Signature (if applicable): CC: [...] MD; Dr. Spenser Sanchez MD ~* Signed [facility] Work Phone: 1(352) 238-920407-02-2023 Discharge summary Author Thomas Oropeza [facility] November 01, 2022 1:22pm Note Date/Time November 01, 2022 8:27a [facility] Medical Records Department [address] [place] [address] Emergency Department Summary 11/01/22 MR#: [id number] Acct: [id number] Name: BETTE CLEMENTS Rep #:[id number] : 1945 77 From: Thomas Oropeza MD PCP: Dr. Spenser Sanchez MD Status:R EG ER Location: ED HPI History of Present Illness Chief Complaint: Hypertension Detail of Chief Complaint: Intermittent nonexertional chest pain Informant: patient Onset/Context/Timing Onset: Days Context: Gradual Onset Timing: Intermittent Current Severity: Gone Maximum Severity: Mild Narrative Narrative: 77-year-old male extensive past medical history of prior MT in 2007 he is a cardiac stents [...] similar symptoms: No Recent Illness/Hospitalization: No PFSH PFS Medical History AAA (abdominal aortic aneurysm) Abdominal aortic aneurysm (AAA) greater than 5.5 cm in diameter in male Alcohol abuse Allergy to dog dander Anemia Arthritis Asthma 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 Back pain [...] for nebulization 0.5 mg (2 mL) inhalation Z81Ebhmu #180 mL 03/25/22 [Rx Last Taken 07/23/22] [...] either his primary care physician or 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 Christiano Steinberg to see if they [...] 71.8 H Lymph % (Auto) 16.9 L [place] % (Auto) 8.6 Eos % (Auto) 1.6 [...] rate of 77 no acute signs of MT or ischemia. Discharge Plan Triage Chief Complaint: [...] your Primary Care Provider. Call [facility] ([phone]) or report to the closest Emergency Room. Call 911 if necessary. 11/01/22 1322 <Electronically signed by Thomas Oropeza MD> Cosigner Signature (if applicable): CC: Dr. Spenser Sanchez MD ~ Signed [facility] Work Phone: 1(352) 964-293303-26-[address] Zarate [facility] July 26, 2022 10:57am Note Date/Time July 26, 2022 10: 43am [facility] Medical Records Department [address] [place] [address] Progress Note - Surgery 07/26/22 1043 MR#: [id number] Acct: [id number] Name: BETTE CLEMENTS Rep #:[id number] : 1945 77 From: Marcela Zarate MD PCP: Dr. Spenser Sanchez MD Status:A DM IN Location: DC3 [id number] Subjective Subjective patient feeling much improved denies abdominal pain passing flatus and has had bowel movements Objective Data Objective Data Vital Signs: Vital Signs Temp Pulse Resp BP Pulse Ox O2 Del Method O2 Flow Rate 98.6 F 90 18 155/89 H 97 Room Air 3 07/26/22 10:21 07/26/22 10:21 07/26/22 10:21 07/26/22 10:21 07/26/22 10:07/26/22 10:07/26/22 08:31 Oxygen Flow Rate (L/min) 3 Oxygen [...] 72.1 H, Lymph % (Auto) 12.2 L, [place] % (Auto) 8.1, Eos % (Auto) 6.3 [...] Cosigner Signature (if applicable): CC: ~ Signed [facility] Work Phone: [phone]) 862-354603-26-[address] Zarate [facility] July 26, 2022 10:44am Note Date/Time July 26, 2022 10: 44am [facility] Medical Records Department [address] [place] [address] Instructions for Home/Discharge Instructions 07/26/22 1043 MR#: [id number] Acct: [id number] Name: BETTE CLEMENTS Rep #:[id number] : 1945 77 From: Marcela Zarate MD [...] MD; Dr. Robel Figueredo MD ~ Signed [facility] Work Phone: 1(978) 702-897003-25-[address] Eli [facility] July 25, 2022 5:24pm Note Date/Time July 25, 2022 7:2 4am [facility] Medical Records Department [address] [place] [address] Emergency Department Summary 07/25/22 MR#: [id number] Acct: [id number] Name: BETTE CLEMENTS Rep #:[id number] : 1945 77 From: Barney Eli MD PCP: Dr. Spenser Sanchez MD Status:A DM IN Location: [facility] CG983-8 HPI HPI - GI History of Present [...] acutely, last bowel movement was sometime yesterday. [facility] Medical History (Updated 07/25/22 @ 10:[address] Barney Eli MD) AAA (abdominal aortic aneurysm) Abdominal aortic aneurysm (AAA) greater than 5.5 cm in diameter in male Alcohol abuse Allergy to dog dander Anemia Arthritis Asthma 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 Back pain [...] for nebulization 0.5 mg (2 mL) inhalation L89Ayogx #180 mL 03/25/22 [Rx Last Taken Unknown] [...] guarding or rebound tenderness. Normal inspection no Tarun sign. Bowel soundsare present but hypoactive. Back/Spine [...] 89.5 H Lymph % (Auto) 3.7 L [place] % (Auto) 4.8 Eos % (Auto) 0.8 [...] Clarity Clear Urine pH 6.5 Ur Specific [place] 1.015 Urine Protein 30 H Urine Glucose [...] Provider] - Disposition Disposition: Acute Care Hospital [facility] What to do if you have Problems For any increased pain, shortness of breath, bleeding, nausea or vomiting, chestpain, or any unexpected problems, contact your Primary Care Provider. Call [facility] ([phone]) or report to the closest Emergency Room. Call 911 if necessary. 07/25/22 1724 <Electronically signed by Barney Eli MD> Cosigner Signature (if applicable): CC: Dr. Spenser Sanchez MD ~ Signed [facility] Work Phone: [phone]) 447-514803-25-2023 History and physical note Author Nick Maguire [facility] July 25, 2022 5:06pm Note Date/Time July 25, 2022 5:0 6pm [facility] Medical Records Department [address] [place] [address] H&P Exam - Hospitalist 07/25/22 1654 MR#: [id number] Acct: [id number] Name: BETTE CLEMENTS Rep #:[id number] : 1945 77 From: Nick Maguire MD PCP: Dr. Spenser Sanchez MD Status:A DM IN Location: [facility] [id number] HPI - General General Date of Admission: [...] mid teens. He is not a smoker. [facility] Medical History (Updated 07/25/22 @ 17:[address] Nick Maguire MD) AAA (abdominal aortic aneurysm) Abdominal aortic aneurysm (AAA) greater than 5.5 cm in diameter in male Alcohol abuse Allergy to dog dander Anemia Arthritis Asthma 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 Back pain [...] for nebulization 0.5 mg (2 mL) inhalation W89Nrwwr #180 mL 03/25/22 [Rx Last Taken 07/23/22] [...] 89.5 H, Lymph % (Auto) 3.7 L, [place] % (Auto) 4.8, Eos % (Auto) 0.8, [...] Clarity Clear, Urine pH 6.5, Ur Specific [place] 1.015, Urine Protein 30 H, Urine Glucose [...] at bedside. Charges/Coding Visit Charges Inpatient E&M: 51428 Init Hosp L2 07/25/22 1706 <Electronically signed by Nick Maguire MD> Cosigner Signature (if applicable): CC: Dr. Spenser Sanchez MD; Nick Maguire MD~ Signed [facility] Work Phone: [phone]) 438-961103-25-[address] Zarate [facility] July 25, 2022 2:57pm Note Date/Time July 25, 2022 2:5 5pm [facility] Medical Records Department [address] [place] [address] Consultation - Surgical 07/25/22 1444 MR#: [id number] Acct: [id number] Name: BETTE CLEMENTS Rep #:[id number] : 1945 77 From: Marcela Zarate MD PCP: Dr. Spenser Sanchez MD Status:A DM IN Location: [place] 520691-1 Assessment & Plan Assessment/Plan (1) Complete small [...] and abdominla pain. CT scan findings from [facility] ED reveals bowel obstruction. However, patient has [...] PSA, evaluation by Dr. Montaño is pending [facility] Medical History AAA (abdominal aortic aneurysm) Abdominal aortic aneurysm (AAA) greater than 5.5 cm in diameter in male Alcohol abuse Allergy to dog dander Anemia Arthritis Asthma 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 Back pain [...] for nebulization 0.5 mg (2 mL) inhalation K37Kzqhk #180 mL 03/25/22 [Rx Last Taken 07/23/22] [...] 89.5 H, Lymph % (Auto) 3.7 L, [place] % (Auto) 4.8, Eos % (Auto) 0.8, [...] Clarity Clear, Urine pH 6.5, Ur Specific [place] 1.015, Urine Protein 30 H, Urine Glucose [...] Woodson MD at 12:18 EDT , 07/25/22 7487 <Electronically signed by Marcela Zarate MD> Cosigner Signature (if applicable): CC: Dr. Spenser Sanchez MD~ Signed [facility] Work Phone: [phone]) 763-728103-10-2023 History of Present illness Narrative* Aren Mcarthur PA-C - 07/10/2022 3:10 PM EST Images from the original note were not included. REPLACED BY [facility] NEW PATIENT CLINIC NOTE [...] (FLONASE) 50 mcg/actuation nasal spray Use 1 [place] in each nostril once daily. verapamil SR [...] needed. (Patient not taking: Reported on 07/10/2022) Jqmkyzlvjww-Uyanuodep-Fma C-Mn (GLUCOSAMINE CHONDROITIN MAXSTR) 500-400 mg cap [...] CABG X4 Diabetes Father Heart Paternal Grandfather MT'S Diabetes Paternal Grandmother Emphysema Maternal Grandfather Heart [...] medications, tests, or procedures, and care coordination. Aren Mcarthur, NATALY, MT, CECILIA * Charla Perez - 07/10/2022 2:20 PM EST PSA,Total - Annual Screen on 07-06-2022 PSA,TOT SCREEN 158.00 ng/mL High 0.00-4.00 [facility] Comment on above: Result Comment: This test was performed using the TPSAassay method for the Trot chemistry system. Values obtained with different assay methods cannot be used interchangably. When changing PSA assays in the course of monitoring a patient, additional sequential testing should be carried out to confirm baseline values. Performed By: #### L501.9910, L500.4050, L100.0100 ####[facility] [address] 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 Insomnia chronic Atherosclerotic heart diseas e of [place] coronary artery without angina pectoris chronic Essential (primary) hypertension chronic Hyperlipidemia chronic History of endovascular sten t graft for abdominal aortic aneurysm (AAA) June 25, 2020 resolved BPH (benign prostatic hyperplasia) chronic Essential (primary) hypertension chronic Insomnia chronic Complete small bowel obstruction acute [facility] Work Phone: [phone]) 637-451202-23-2021 Evaluation note* Diagnosis Onset Date Resolution Status Insomnia chronic Carotid stenosis, left acute History of left inguinal hernia repair acute History of endovascular sten t graft for abdominal aortic aneurysm (AAA) June 25, 2020 resolved Asthma chronic 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 Insomnia chronic Atherosclerotic heart diseas e of [place] coronary artery without angina pectoris chronic Essential (primary) hypertension chronic Hyperlipidemia chronic History of endovascular sten t graft for abdominal aortic aneurysm (AAA) June 25, 2020 resolved BPH (benign prostatic hyperplasia) chronic Essential (primary) hypertension chronic Insomnia chronic Partial bowel obstruction ac [place] AAA (abdominal aortic aneurysm) chronic Asthma chronic BPH (benign prostatic hyperplasia) chronic Coronary artery disease director compensation [place] History of colon cancer director compensation [place] Insomnia chronic [facility] Work Phone: [phone]) [phone] Evaluation note* Diagnosis Onset Date Resolution Status Carotid stenosis, left acute History of left inguinal hernia repair acute History of endovascular sten t graft for abdominal aortic aneurysm (AAA) June 25, 2020 resolved 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 Essential (primary) hypertension chronic Hyperlipidemia chronic History of endovascular sten t graft for abdominal aortic aneurysm (AAA) June 25, 2020 resolved Essential (primary) hypertension chronic [facility] Work Phone: 1(681) 444-311212-15-2019 Consult note Author Amrita Novak [facility] Note Date/Time July 18, 2024 3:0 2pm [facility] Medical Records Department [address] [place] [address] Anesthesia Postop Eval I 07/18/24 1459 MR#: [id number] Acct: [id number] Name: BETTE CLEMENTS Rep #:[id number] : 1945 79 From: Amrita Novak CRNA PCP: CODY Burk Status:REG [facility] Y Race: C Location: [place] [address] Anesthesia: Postop Eval I Current Vital Signs [...] Amrita MILLAN NA> Date _ Amrita Novak FOOT SETTER Cosigner Signature: Date CC: ~ Signed [facility] Work Phone: [phone]) 630-363905-09-2016 History of Past illness Narrative* Problem Noted Date Resolved Date Skin lesion 09/09/2015 03/03/2019 Other affections of shoulder region, not elsewhere classified 03/05/2009 06/15/2011 Renal failure, unspecified 12/06/200706/15 Abdominal pain, right lower quadrant 08/09/2007 12/10/2009 Unspecified hypertrophic and atrophic condition of skin 02/27/2006 06/12/2010 Reflux esophagitis 06/12/2010 documented as of this encounter (statuses as of 07/22/2022) [facility] note Author Allison Mckeon [facility] November 16, 2022 11:37am Note Date/Time November 16, 2022 11:3 7am [facility] Medical Records Department [address] [place] [address] Counseling Note - Pharmacy 11/16/22 1136 MR#: [id number] Acct: [id number] Name: BETTE CLEMENTS Rep #:[id number] : 1945 77 From: Allison Mckeon PCP: Dr. Spenser Sanchez MD Status:A DM IN Location: [place] [id number] [place] Med Reconciliation Pharmacy Service has performed discharge medication reconciliation for this patient. student ambassador, Niraj, attempted to veterans' counselor. However, patient said he has had [...] for nebulization 0.5 mg (2 mL) inhalation Q97Aqzsa #180 mL 03/25/22 verapamil 240 mg tablet,extended [...] calcium 325 mg-vit D3 12.5 mcg-zinc 2.75 xz-zglait-vhhovbytw tablet (Citracal-O9Efibivu Plus) 2 tab PO BID bone deficiency 11/14/22 nitroglycerin 0.4 mg sublingual tablet 0.4 mg sublingual Q5M PRN Cardiac/Chest Pain #20 tabs 11/16/22 11/16/22 1137 <Electronically signed by Allison Mckeon> Date _ Allison Mckeon Cosigner Signature (if applicable): Date CC: ~ Signed [facility] Work Phone: Discharge summary Author Dr. Saldivar [facility] July 26, 2022 12:53pm Note Date/Time July 26, 2022 12: 52pm [facility] Medical Records Department [address] [place] [address] Instructions for Home/Discharge Instructions 07/26/22 1251 MR#: [id number] Acct: [id number] Name: BETTE CLEMENTS Rep #:[id number] : 1945 77 From: Tiki Saldivar MD [...] can be placed): Home, Self Care 07/26/22 0630<Electronically signed by Tiki Saldivar MD>Tiki Saldivar MD CC: Dr. Spenser Sanchez MD; Dr. Robel Figueredo MD ~ Signed [facility] Work Phone: Discharge summary Author Heri Ewing [facility] November 16, 2022 11:00am Note Date/Time November 16, 2022 10:5 7am [facility] Medical Records Department [address] [place] [address] Instructions for Home/Discharge Instructions 11/16/22 1055 MR#: [id number] Acct: [id number] Name: BETTE CLEMENTS Rep #:[id number] : 1945 77 From: Heri Ewing DO [...] nostril multivitamin Tablet 2 tab PO DAILY otnlqem-Q1-bgwp-copper-felix [Citracal-D3 Maximum Plus] 325 mg-12.5 mcg -2.75mg [...] Weeks Sara Fabian PA [Med Staff - [facility]] - 11/20/22 8:30 am Disposition Disposition (needs filled in before D/C Order can be placed): Home, Self Care 11/16/22 1100<Electronically signed by Heri Ewing DO>Heri Ewing DO CC: Dr. Delma Gonsalves MD; Dr. Spenser Sanchez MD; Dr. Bethel Gallegos MD; Dr.Natthavat Mini MD ~ Signed [facility] Work Phone: Discharge summary Author Heri [facility] November 16, 2022 11:01am Note Date/Time November 16, 2022 11:0 1am [facility] Medical Records Department [address] [place] [address] Discharge Summary 11/16/22 1100 MR#: [id number] Acct: [id number] Name: BETTE CLEMENTS Rep #:[id number] : 1945 77 From: Heri wEing DO PCP: Dr. Spenser Sanchez MD Status:A DM IN Location: [place] [address] Providers Date of Admission: 11/14/22 Primary Care [...] given h/o cramps * clopidogrel continued. * MELINDA Yin, due to illness, he would be [...] for nebulization 0.5 mg (2 mL) inhalation K87Iehwb #180 mL 03/25/22 verapamil 240 mg tablet,extended [...] calcium 325 mg-vit D3 12.5 mcg-zinc 2.75 bt-sionjz-apbijlwkk tablet (Citracal-K9Jikobjn Plus) 2 tab PO BID bone deficiency [...] Clarity Clear, Urine pH 6.5, Ur Specific [place] 1.010, Urine Protein Negative, Urine Glucose (UA) [...] Kimberley not ordered:: Allergy Done w/ Acute MT measure.: Yes Documented LVEF (%): 45 Discharge [...] nostril multivitamin Tablet 2 tab PO DAILY pmxhvws-M7-bjsi-copper-felix [Citracal-D3 Maximum Plus] 325 mg-12.5 mcg -2.75mg [...] Weeks Sara Fabian PA [Med Staff - [facility]] - 11/20/22 8:30 am Disposition Disposition (needs filled in before D/C Order can be placed): Home, Self Care Charges/Coding Visit Charges Inpatient E&M: 64295 Disch Hosp >30min 11/16/22 1101 <Electronically signed by Heri Ewing DO> Cosigner Signature (if applicable): CC: Dr. Spenser Sanchez MD; Dr. Heri Ewing DO~ Signed [facility] Work Phone: Discharge summary Author Rhys Fontana [facility] Note Date/Time July 28, 2024 2:1 2pm [facility] Medical Records Department [address] [facility] [place] [address] Discharge Summary 07/28/24 1359 MR#: [id number] Acct: [id number] Name: BETTE CLEMENTS Rep #:[id number] : 1945 79 From: Rhys fallon MD PCP: CODY Burk Status:ADM KISHORE Location: [place] [address] Providers Date of Admission: 07/27/24 Primary Care [...] for nebulization 0.5 mg (2 mL) inhalation M16Dgcgqgliiy #180 mL 06/14/24 Hospital Course Operations None Procedures None Summary of Care Provided Minutes Spent on Discharge: 38 Hospital Course: Per HPI: BETTE CLEMENTS, is a 79M with history of coronary artery disease status post PCI on Plavix, prostate cancer status post radiation and current hormonal therapy with Dr. Montaño, previous colon cancer status post colon resection, previous GI bleed presented to [facility] ED 07/27/2024 for evaluation of repeat [...] 70.4 H, Lymph % (Auto) 12.7 L, [place] % (Auto) 8.7, Eos % (Auto) 6.6 [...] .ROUTE .MEDSUPPLY Qty: 1 0RF Rx Instructions: epwuxcx4102/12/2028 formoterol fumarate [Perforomist] 20 mcg/2 mL solution [...] Prof] - 08/02/24 10:00 am Jeremiah Mckeon, HAM PASSER-C [Primary Care Provider] - Within 1 Week Disposition Disposition (needs filled in before D/C Order can be placed): Home, Self Care Charges/Coding Visit Charges Inpatient E&M: 07806 Disch Hosp >30min 07/28/24 1412 <Electronically signed by Rhys Fontana MD> Cosigner Signature (if applicable): CC: CODY Mckeon; Dr. Rhys Fontana MD~ Signed [facility] Work Phone: Discharge summary Author Tiki Saldivar [facility] Note Date/Time August 11, 2024 12: 36pm [facility] Medical Records Department [address] [place] [address] Instructions for Home/Discharge Instructions 08/11/24 1232 MR#: [id number] Acct: [id number] Name: BETTE CLEMENTS Rep #:[id number] : 1945 79 From: Tiki Saldivar MD [...] Tiki Saldivar Primary Care Provider: Jeremiah Mckeon [facility] Consulting Providers: Rhys Fontana Instructions Patient Instructions: ED Fall Prevention Additional Instructions / Restrictions: DISCHARGE INSTRUCTIONS PLEASE READ *Please take this with you to your next doctors appointment* -You will need to follow-up with Dr. Gonzáles with GI in his office upon discharge. Please call his office to schedule an appointment (ph. [phone]) -You will need a repeat colonoscopy in [...] .ROUTE .MEDSUPPLY Qty: 1 0RF Rx Instructions: awehzfi1302/12/2028 formoterol fumarate [Perforomist] 20 mcg/2 mL solution [...] his office to schedule an appointment (ph. [phone])) Jeremiah Mckeon, HAM PASSER-C [Primary Care Provider] - In 1 Week Disposition Disposition (needs filled in before D/C Order can be placed): Home, Self Care 08/11/24 1236<Electronically signed by Tiki Saldivar MD>Tiki Saldivar MD CC: HAM PASSER-C Jeremiah Mckeon; Dr. Rhys Fontana MD ~ Signed [facility] Work Phone: Discharge summary Author Tiki Saldivar [facility] Note Date/Time August 11, 2024 12: 38pm [facility] Medical Records Department [address] [place] [address] Instructions for Home/Discharge Instructions 08/11/24 1237 MR#: [id number] Acct: [id number] Name: BETTE CLEMENTS Rep #:[id number] : 1945 79 From: Tiki Saldivar MD [...] his office to schedule an appointment (ph. [phone]) -You will need a repeat colonoscopy in [...] .ROUTE .MEDSUPPLY Qty: 1 0RF Rx Instructions: [id number]/12/2028 formoterol fumarate [Perforomist] 20 mcg/2 mL solution [...] Referrals / Follow Up: Faraz Gonzáles DO [[facility] Staff - Active Staff] - ( -You will need to follow-up with Dr. Gonzáles with GI in his office upon discharge. Please call his office to schedule an appointment (ph. [phone])) Jeremiah Mckeon, HAM PASSER-C [Primary Care Provider] - In 1 Week Disposition Disposition (needs filled in before D/C Order can be placed): Home, Self Care 08/11/24 1238<Electronically signed by Tiki Saldivar MD>Tiki Saldivar MD CC: AISHA-Agapito Mckeon; Dr. 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 Asthma chronic Essential (primary) hypertension chronic Insomnia chronic Atherosclerotic heart diseas e of [place] coronary artery without angina pectoris chronic Essential (primary) hypertension chronic Hyperlipidemia chronic History of endovascular sten t graft for abdominal aortic aneurysm (AAA) June 25, 2020 resolved [facility] Work Phone: Evaluation note* Diagnosis Onset Date Resolution Status Asthma chronic Essential (primary) hypertension chronic Insomnia chronic Atherosclerotic heart diseas e of [place] coronary artery without angina pectoris chronic Essential (primary) hypertension chronic Hyperlipidemia chronic History of endovascular sten t graft for abdominal aortic aneurysm (AAA) June 25, 2020 resolved Therapeutic drug monitoring acute Essential (primary) hypertension chronic Insomnia chronic [facility] Work Phone: Evaluation note* Diagnosis Onset Date Resolution Status Therapeutic drug monitoring acute Essential (primary) hypertension chronic Insomnia chronic Insomnia chronic Carotid stenosis, left acute History of left inguinal hernia repair acute History of endovascular sten t graft for abdominal aortic aneurysm (AAA) June 25, 2020 resolved [facility] Work Phone: Evaluation note* Diagnosis Onset Date Resolution Status Therapeutic drug monitoring acute Essential (primary) hypertension chronic Insomnia chronic Insomnia chronic Carotid stenosis, left acute History of left inguinal hernia repair acute History of endovascular sten t graft for abdominal aortic aneurysm (AAA) June 25, 2020 resolved Asthma chronic 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 [facility] Work Phone: Evaluation note* Diagnosis Onset [...] Insomnia chronic Atherosclerotic heart diseas e of [place] coronary artery without angina pectoris chronic Essential (primary) hypertension chronic Hyperlipidemia chronic History of endovascular sten t graft for abdominal aortic aneurysm (AAA) June 25, 2020 resolved BPH (benign prostatic hyperplasia) chronic Essential (primary) hypertension chronic Insomnia chronic [facility] Work Phone: Evaluation note* Diagnosis Elevated prostate specific antigen (PSA)- Primary Atherosclerosis of coronary artery of [place] heart without angina pectoris, unspecified vessel or lesion type Personal history of rectal cancer Personal history of malignant neoplasm of rectum, rectosigmoid junction, and anus Chronic obstructive pulmonary disease, unspecified COPD type (HCC) [facility] Onset Date Resolution Status Essential (primary) hypertension chronic Insomnia chronic Insomnia chronic Essential (primary) hypertension chronic Insomnia chronic Prostate CA chronic Trigger finger acute [facility] Work Phone: Evaluation note* Diagnosis Onset Date Resolution Status Insomnia chronic Essential (primary) hypertension chronic Insomnia chronic Prostate CA chronic Trigger finger acute 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 NSTEMI, initial episode of care acute [facility] Work Phone: Evaluation note* Diagnosis Onset Date Resolution Status Insomnia chronic Essential (primary) hypertension chronic Insomnia chronic Prostate CA chronic Trigger finger acute 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 Acute non-ST elevation myoca rdial infarction (NSTEMI) acute Chronic kidney disease, stage 3b acute Hypokalemia acute NSTEMI, initial episode of care acute Atherosclerotic heart diseas e of [place] coronary artery without angina pectoris chronic Essential (primary) hypertension chronic History of coronary artery stent placement June chronic Hyperlipidemia chronic 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, 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 Prostate CA chronic 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 History of endovascular sten t graft for abdominal aortic aneurysm (AAA) June 25, 2020 resolved [facility] Work Phone: Evaluation note* Diagnosis Onset [...] aortic aneurysm (AAA) June 25, 2020 resolved [facility] Work Phone: Evaluation note* Diagnosis Onset Date Resolution Status Atherosclerotic heart diseas e of [place] coronary artery without angina pectoris acute HFrEF (heart failure with re duced ejection fraction) acute SOB (shortness of breath) ac [place] History of endovascular sten t graft for abdominal aortic aneurysm (AAA) June 25, 2020 resolved Asthmatic bronchitis with exacerbation acute [id number] acute RYQ-[id number] acute CZW-VEUU-[id number] acute ZJG-CFBD-[id number] acute YBJ-[id number] acute Trigger finger, right middle finger acute Trigger finger, right ring finger acute Preoperative evaluation to r ule out surgical contraindication acute Prostate CA acute Hypertension chronic Insomnia chronic [facility] Work Phone: Evaluation note* Diagnosis Onset Date Resolution Status Atherosclerotic heart diseas e of [place] coronary artery without angina pectoris acute HFrEF (heart failure with re duced ejection fraction) acute SOB (shortness of breath) ac [place] History of endovascular sten t graft for abdominal aortic aneurysm (AAA) June 25, 2020 resolved Asthmatic bronchitis with exacerbation acute UAP-[id number] acute IYY-ESVH-[id number] acute BHZ-PTQT-[id number] acute GRU-VOAS-[id number] acute IFF-RSHB-[id number] acute Trigger finger, right middle finger acute Trigger finger, right ring finger acute Preoperative evaluation to r ule out surgical contraindication acute Prostate CA acute Hypertension chronic Insomnia chronic Carotid stenosis, left acute History of endovascular sten t graft for abdominal aortic aneurysm acute [facility] Work Phone: Evaluation note* Diagnosis Onset Date Resolution Status Asthmatic bronchitis with exacerbation acute MQY-[id number] acute TPQ-CNCL-[id number] acute KFY-MVDX-[id number] acute GRF-TILV-7969151704 acute AUY-MHRD-[id number] acute Trigger finger, right middle finger acute Trigger finger, right ring finger acute Preoperative evaluation to r ule out surgical contraindication acute Prostate CA acute Hypertension chronic Insomnia chronic Carotid stenosis, left acute History of endovascular sten t graft for abdominal aortic aneurysm acute Bronchiectasis chronic Trigger finger, right middle finger acute Trigger finger, right ring finger acute [facility] Work Phone: Evaluation note* Diagnosis Onset Date Resolution Status Preoperative evaluation to r ule out surgical contraindication acute Prostate CA acute Hypertension chronic Insomnia chronic Carotid stenosis, left acute History of endovascular sten t graft for abdominal aortic aneurysm acute Bronchiectasis chronic Trigger finger, right middle finger acute Trigger finger, right ring finger acute Atherosclerotic heart diseas e of [place] coronary artery without angina pectoris acute HFrEF (heart failure with re duced ejection fraction) acute History of endovascular sten t graft for abdominal aortic aneurysm (AAA) June 25, 2020 resolved [facility] Work Phone: History and physical note Author Delma Gonsalves [facility] November 14, 2022 6:15am Note Date/Time November 14, 2022 5:15 am [facility] Medical Records Department [address] [place] [address] H&P Exam - Hospitalist 11/14/22 0512 MR#: [id number] Acct: [id number] Name: BETTE CLEMENTS Rep #:[id number] : 1945 77 From: Delma Gonsalves MD PCP: Dr. Spenser Sanchez MD Status:A DM IN Location: [place] [address] HPI - General General Date of Admission: [...] with Dr. Steinberg who presents to the [facility] ED on 11/14/22 with history of onset [...] case was discussed per ED physician with feather duster winder Dr. Henson noted possible catheterization Wednesday if remain chest pain-free. 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 Steinberg who presents to the [facility] ED on 11/14/22 with history of onset [...] 60 minutes. Charges/Coding Visit Charges Inpatient E&M: 35319 Init Hosp L2 Procedures Hospitalists Procedures: 53612 Advncd Care Plan 30 Min 11/14/22 0614 <Electronically signed by Delma Gonsalves MD> Cosigner Signature (if applicable): CC: Dr. Delma Gonsalves MD; Dr. Spenser Sancehz MD~ Signed ADDENDUM by Dr. Delma Gonsalves MD on 11/14/22 at 0615 Addendum Prostate cancer: Clarification, patient has ongoing current treatment with Dr. Montaño, and has upcoming repeat PSA with reevaluation on 11/30/2022 reportedly having an injection x1. 11/14/22 0615<Electronically signed by Delma Gonsalves MD> Cosigner Signature (if applicable): cc: Dr. Delma Gonsalves MD; Dr. Spenser Sanchez MD ~* Signed [facility] Work Phone: History and physical note Author Faraz Gonzáles [facility] Note Date/Time July 18, 2024 2:2 6pm [facility] Medical Records Department [address] [place] [address] History & Physical Exam 07/18/24 1423 MR#: [id number] Acct: [id number] Name: BETTE CLEMENTS Rep #:[id number] : 1945 79 From: Faraz Gonzáles DO PCP: CODY Burk Status:[place] [facility] [place] Location: [facility] HPI - General General Date of Admission: [...] on hormone injections for prostate CA PLAVIX 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 Old inferior [...] Today Medications: New hydrocortisone 2.5% 1 applic LA QD-BID PRN 30 grams 0RF rectal bleeding [...] CC: CODY Mckeon; Faraz Gonzáles DO~ Signed [facility] Work Phone: History and physical note Author Tiki Saldivar [facility] Note Date/Time July 27, 2024 4:3 5pm [facility] Medical Records Department [address] [place] [address] H&P Exam - Hospitalist 07/27/24 1608 MR#: [id number] Acct: [id number] Name: BETTE CLEMENTS Rep #:[id number] : 1945 79 From: Tiki Saldivar MD PCP: CODY Burk Status:ADM [place] Location: [place] [address] HPI - General General Date of Admission: 07/27/24 Date of Service: 07/27/24 Chief Complaint: Diarrhea and blood in stool HPI Narrative BETTE CLEMENTS, is a 79M with history of coronary artery disease status post PCI onPlavix, prostate cancer status post radiation and current hormonal therapy with Dr. Montaño, previous colon cancer status post colon resection, previous [facility] for evaluation of repeat [...] no nausea or vomiting, no urinary symptoms. 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 Old inferior [...] 73.6 H, Lymph % (Auto) 13.4 L, [place] % (Auto) 5.5, Eos % (Auto) 6.0 [...] Clarity Clear, Urine pH 6.0, Ur Specific [place] 1.015, Urine Protein 15 H, Urine Glucose [...] the body of the report. 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 Tiki Saldivar MD~ Signed [facility] Work Phone: Hospital Discharge instructions Additional Instructions The skin glue will dissolve itself, return for any signs of infection.[facility] Work Phone: Hospital Discharge instructions Additional Instructions Log your blood pressure daily and follow-up with either Dr. Christiano Steinberg or Dr Sanhcez to determine if they want to start you on a blood pressure medication.[facility] Work Phone: Progress note Author Nano Long [facility] November 16, 2022 11:07am Note Date/Time November 16, 2022 11:0 7am [facility] Medical Records Department [address] [place] [address] Progress Note - Nephrology 11/16/22 1101 MR#: [id number] Acct: [id number] Name: BETTE CLEMENTS Rep #:[id number] : 1945 77 From: Nano dominguez HAM PASSER-C PCP: Dr. Spenser Sanchez MD Status:A DM IN Location: [place] [address] Subjective Subjective Following for a DOMENICA [...] Clarity Clear, Urine pH 6.5, Ur Specific [place] 1.010, Urine Protein Negative, Urine Glucose (UA) [...] postponed till tomorrow due to unavailability of feather duster winder. Patient has decided to be discharged to home today (he cares for his demented ) and will follow-up with cardiology. 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 Expl 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 ACP-Advance Directive 06/07/2020 12:00 AM ACP-Power of Peanut Cleaner 05/31/2020 12:44 PM Latest Code Status on File Code Status Date Activated Date Inactivated Comments Full Code 06/07/2020 10:20 AM Full Code 06/07/2020 7:37 AM 06/07/2020 10:20 AM Advance Directive Response Recorded Date/ Time Advance Directives Yes June 12:42pm Living Will Yes June 12 11:55am Power of Peanut Cleaner Yes June 12, 2021 11:55am Advance Directive Response Recorded Date/ Time Advance Directives Yes June 11:42am Living Will Yes June 12 10:55am Power of Peanut Cleaner Yes June 12, 2021 10:55am Advance Directive Response Recorded Date/ Time Name of Medical Power of Peanut Cleaner belkis lucio clements July 25, 2022 7:21am Advance Directives Yes June 12:42pm Living Will Yes July 25, 2022 7:21am Power of Peanut Cleaner Yes July 25 7:21am Advance Directive Response Recorded Date/ Time Name of Medical Power of Peanut Cleaner Khadijah Balderas July 25, 2022 1:07pm Advance Directives Yes June 12:42pm Living Will Yes July 25, 2022 1:07pm Power of Peanut Cleaner Yes July 25 1:07pm Advance Directive Response Recorded Date/ Time Name of Medical Power of Peanut Cleaner Khadijah Balderas July 25, 2022 1:07pm Advance Directives Yes June 12:42pm Living Will No July 31, 2022 4:24pm Power of Peanut Cleaner No July 31 4:24pm Advance Directive Response Recorded Date/ Time Name of Medical Power of Peanut Cleaner hKadijah Balderas July 25, 2022 1:07pm Name of Medical Power of Peanut Cleaner khadijah milo August 08, 2022 3:03pm Advance Directives Yes June 12:42pm Living Will Yes August 08, 2022 3:03pm Power of Peanut Cleaner Yes August 08 3:03pm Advance Directive Response Recorded Date/ Time Name of Medical Power of Peanut Cleaner Khadijah Bette July 25, 2022 1:07pm Name of Medical Power of Peanut Cleaner khadijah, son August 08, 2022 3:03pm Name of Medical Power of Peanut Cleaner Khadijah Clements November 01, 2022 8:13am Advance Directives Yes June 12:42pm Living Will Yes November 01, 2022 8 :13am Power of Peanut Cleaner Yes November 01, 2022 8:13am Advance Directive Response Recorded Date/ Time Name of Medical Power of Peanut Cleaner Khadijah Bette July 25, 2022 1:07pm Name of Medical Power of Peanut Cleaner khadijah, son August 08, 2022 3:03pm Name of Medical Power of Peanut Cleaner Khadijah Clements November 01, 2022 8:13am Name of Medical Power of Peanut Cleaner ana November 14, 2022 2:11am Advance Directives Yes June 12:42pm Living Will Yes November 14, 2022 2:11am Power of Peanut Cleaner Yes November 14 2:11am Advance Directive Response Recorded Date/ Time Name of Medical Power of Peanut Cleaner Khadijah Bette July 25, 2022 1:07pm Name of Medical Power of Peanut Cleaner khadijah, milo August 08, 2022 3:03pm Name of Medical Power of Peanut Cleaner Khadijah Clements November 01, 2022 8:13am Name of Medical Power of Peanut Cleaner Khadijah Clements November 14, 2022 6:29am Advance Directives Yes June 12:42pm Living Will Yes November 14, 2022 6:29am Power of Peanut Cleaner Yes November 14 6:29am Advance Directive Response Recorded Date/ Time Name of Medical Power of Peanut Cleaner khadijah, son August 08, 2022 3:03pm Name of Medical Power of Peanut Cleaner Khadijah Clements November 01, 2022 8:13am Name of Medical Power of Peanut Cleaner Khadijah Clements November 14, 2022 6:29am Advance Directives on File Yes November 27, 2022 7:48am Name of Medical Power of Peanut Cleaner Khadijah Clements-s on November 27, 2022 7:48am Advance Directives Yes November 27 7:48am Living Will Yes November 27, 2022 7:48am Power of Peanut Cleaner Yes November 27 7:48am Advance Directive Response Recorded Date/ Time Name of Medical Power of Peanut Cleaner milo lucio August 08, 2022 3:03pm Name of Medical Power of Peanut Cleaner Khadijah Clements November 01, 2022 8:13am Name of Medical Power of Peanut Cleaner Khadijah Clements November 14, 2022 6:29am Advance Directives on File Yes November 27, 2022 7:48am Name of Medical Power of Peanut Cleaner Khadijah Clements-s on November 27, 2022 7:48am Name of Medical Power of Peanut Cleaner KHADIJAH November 30, 2022 11:31am Advance Directives Yes November 27 7:48am Living Will Yes November 30, 2022 11:31am Power of Peanut Cleaner Yes November 30 11:31am Advance Directive Response Recorded Date/ Time Name of Medical Power of Peanut Cleaner Khadijah Clements November 01, 2022 8:13am Name of Medical Power of Peanut Cleaner Khadijah Clements November 14, 2022 6:29am Advance Directives on File Yes November 27, 2022 7:48am Name of Medical Power of Peanut Cleaner Khadijah Clements-s on November 27, 2022 7:48am Name of Medical Power of Peanut Cleaner KHADIJAH November 30, 2022 11:31am Advance Directives Yes November 27 7:48am Living Will Yes November 30, 2022 11:31am Power of Peanut Cleaner Yes November 30 11:31am Advance Directive Response Recorded Date/ Time Advance Directives Yes March 10:01am Living Will Yes March 29, 023 10:01am Power of Peanut Cleaner Yes March 29, 2023 10:01am Advance Directive Response Recorded Date/ Time Advance Directives Yes March 11:01am Living Will Yes March 29, 023 11:01am Power of Peanut Cleaner Yes March 29, 2023 11:01am Advance Directive Response Recorded Date/ Time Living Will Yes March 29, 023 11:01am Power of Peanut Cleaner Yes March 29, 2023 11:01am Living Will Yes February 27 10:04am Power of Peanut Cleaner Yes February 28, 2024 10:04am Advance Directives Yes February 28, 2024 10:04am Living Will No April 30 11:11am Power of Peanut Cleaner No April 30, 2024 11:11am Living Will Yes July 17, 2024 1:20pm Power of Peanut Cleaner Yes July 17 1:20pm Name of Medical Power of Peanut Cleaner ON FILE July 17, 2024 1:20pm Living Will Yes April 11 024 2:38pm Power of Peanut Cleaner Yes April 11, 2024 2:38pm Name of Medical Power of Peanut Cleaner VIVEK CLEMENTS April 11, 2024 2:38pm Advance Directive Response Recorded Date/ Time Living Will Yes March 29 11:01am Do you have a Healthcare Power of Peanut Cleaner? Yes March 29, 2023 11:01am Living Will Yes February 27 10:04am Do you have a Healthcare Power of Peanut Cleaner? Yes February 28, 2024 10:04am Advance Directives Yes February 28, 2024 10:04am Living Will No April 30 11:11am Do you have a Healthcare Power of Peanut Cleaner? No April 30, 2024 11:11am Living Will Yes July 17, 2024 1:20pm Do you have a Healthcare Power of Peanut Cleaner? Yes July 17, 2024 1:20pm Name of Medical Power of Peanut Cleaner ON FILE July 17, 2024 1:20pm Living Will Yes April 11 024 2:38pm Do you have a Healthcare Power of Peanut Cleaner? Yes April 11, 2024 2:38pm Name of Medical Power of Peanut Cleaner VIVEK CLEMENTS April 11, 2024 2:38pm Living Will No July 27, 2024 9:48am Do you have a Healthcare Power of Peanut Cleaner? No July 27, 2024 9:48am Advance Directive Response Recorded Date/ Time Living Will Yes March 29 11:01am Do you have a Healthcare Power of Peanut Cleaner? Yes March 29, 2023 11:01am Living Will Yes February 27 10:04am Do you have a Healthcare Power of Peanut Cleaner? Yes February 28, 2024 10:04am Advance Directives Yes February 28, 2024 10:04am Living Will No April 30 11:11am Do you have a Healthcare Power of Peanut Cleaner? No April 30, 2024 11:11am Living Will Yes July 17, 2024 1:20pm Do you have a Healthcare Power of Peanut Cleaner? Yes July 17, 2024 1:20pm Name of Medical Power of Peanut Cleaner ON FILE July 17, 2024 1:20pm Living Will Yes April 11 2:38pm Do you have a Healthcare Power of Peanut Cleaner? Yes April 11, 2024 2:38pm Name of Medical Power of Peanut Cleaner VIVEK CLEMENTS April 11, 2024 2:38pm Living Will Yes July 27, 2024 5:11pm Do you have a Healthcare Power of Peanut Cleaner? Yes July 27, 2024 5:11pm Name of Medical Power of Peanut Cleaner Khadijah Clements July 27, 2024 5:11pm Advance Directive Response Recorded Date/ Time Living Will Yes March 29 11:01am Do you have a Healthcare Power of Peanut Cleaner? Yes March 29, 2023 11:01am Living Will Yes February 27 10:04am Do you have a Healthcare Power of Peanut Cleaner? Yes February 28, 2024 10:04am Advance Directives Yes February 28, 2024 10:04am Living Will No April 30 11:11am Do you have a Healthcare Power of Peanut Cleaner? No April 30, 2024 11:11am Living Will Yes July 17, 2024 1:20pm Do you have a Healthcare Power of Peanut Cleaner? Yes July 17, 2024 1:20pm Name of Medical Power of Peanut Cleaner ON FILE July 17, 2024 1:20pm Living Will Yes April 11 2:38pm Do you have a Healthcare Power of Peanut Cleaner? Yes April 11, 2024 2:38pm Name of Medical Power of Peanut Cleaner VIVEK CLEMENTS April 11, 2024 2:38pm Living Will Yes July 27, 2024 5:11pm Do you have a Healthcare Power of Peanut Cleaner? Yes July 27, 2024 5:11pm Name of Medical Power of Peanut Cleaner Khadijahvan Clements July 27, 2024 5:11pm Living Will Yes August 09, 2024 4:36pm Do you have a Healthcare Power of Peanut Cleaner? Yes August 09, 2024 4:36pm Name of Medical Power of Peanut Cleaner ? August 09, 2024 4:36pm Advance Directive Response Recorded Date/ Time Living Will Yes March 29 11:01am Do you have a Healthcare Power of Peanut Cleaner? Yes March 29, 2023 11:01am Living Will Yes February 27 10:04am Do you have a Healthcare Power of Peanut Cleaner? Yes February 28, 2024 10:04am Advance Directives Yes February 28, 2024 10:04am Living Will No April 30 11:11am Do you have a Healthcare Power of Peanut Cleaner? No April 30, 2024 11:11am Living Will Yes July 17, 2024 1:20pm Do you have a Healthcare Power of Peanut Cleaner? Yes July 17, 2024 1:20pm Name of Medical Power of Peanut Cleaner ON FILE July 17, 2024 1:20pm Living Will Yes July 27, 2024 5:11pm Do you have a Healthcare Power of Peanut Cleaner? Yes July 27, 2024 5:11pm Name of Medical Power of Peanut Cleaner Khadijah Clements July 27, 2024 5:11pm Living Will Yes August 09, 2024 7:50pm Do you have a Healthcare Power of Peanut Cleaner? Yes August 09, 2024 7:50pm Name of Medical Power of Peanut Cleaner ? August 09, 2024 7:50pm Advance Directive Response Recorded Date/ Time Living Will Yes March 29 11:01am Do you have a Healthcare Power of Peanut Cleaner? Yes March 29, 2023 11:01am Living Will Yes February 27 10:04am Do you have a Healthcare Power of Peanut Cleaner? Yes February 28, 2024 10:04am Advance Directives Yes February 28, 2024 10:04am Living Will Yes July 17, 2024 1:20pm Do you have a Healthcare Power of Peanut Cleaner? Yes July 17, 2024 1:20pm Name of Medical Power of Peanut Cleaner ON FILE July 17, 2024 1:20pm Living Will Yes July 27, 2024 5:11pm Do you have a Healthcare Power of Peanut Cleaner? Yes July 27, 2024 5:11pm Name of Medical Power of Peanut Cleaner Khadijah Clements July 27, 2024 5:11pm Living Will Yes August 09, 2024 7:50pm Do you have a Healthcare Power of Peanut Cleaner? Yes August 09, 2024 7:50pm Name of Medical Power of Peanut Cleaner ? August 09, 2024 7:50pm Advance Directive Response Recorded Date/ Time Living Will Yes March 29 11:01am Do you have a Healthcare Power of Peanut Cleaner? Yes March 29, 2023 11:01am Living Will Yes July 17, 2024 1:20pm Do you have a Healthcare Power of Peanut Cleaner? Yes July 17, 2024 1:20pm Name of Medical Power of Peanut Cleaner ON FILE July 17, 2024 1:20pm Living Will Yes July 27, 2024 5:11pm Do you have a Healthcare Power of Peanut Cleaner? Yes July 27, 2024 5:11pm Name of Medical Power of Peanut Cleaner Khadijah Clements July 27, 2024 5:11pm Living Will Yes August 09, 2024 7:50pm Do you have a Healthcare Power of Peanut Cleaner? Yes August 09, 2024 7:50pm Name of Medical Power of Peanut Cleaner ? August 09, 2024 7:50pm Advance Directives Yes February 28, 2024 10:04am Advance Directive Response Recorded Date/ Time Advance Directives Yes February 28, 2024 10:04am Reason for Referral Status Reason Specialty Diagnoses / Procedures Referred By Contact Referred To Contact Open Specialty Services Required Cardiac Rehabilitation Diagnoses S/P drug eluting coronary stent placement Coronary artery disease involving yurok coronary artery of yurok heart without angina pectoris Zulma Martini APRN - CNP [address] [place] [id number] Discharge Instructions * Instructions* Zulma Martini APRN - CNP - 06/07/2020 Call your doctor with any medication questions or if you notice any side effects from your medications. If you are unable to fill your medications, please call your [employer] [facility] immediately. The office number is located with [...] for 24 hours. 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 Essential (primary) hypertension Hyperlipidemia History of endovascular stent graft for abdominal aortic aneurysm (AAA) Chief Complaint 3 M FU EORDER 6 M FU injection-Flu 3 M FU Reason for Visit Asthma Essential (primary) hypertension Insomnia 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 Essential (primary) [...] GOLD classification Insomnia 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 Essential (primary) [...] GOLD classification Insomnia 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 Essential (primary) [...] GOLD classification Insomnia 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 Essential (primary) [...] GOLD classification Insomnia 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 Essential (primary) [...] by GOLD classification 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 Essential (primary) [...] by GOLD classification 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 Essential (primary) [...] by GOLD classification 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 Essential (primary) [...] episode of care 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 Essential (primary) [...] CHEST PAIN, NSTEMI CHEST PAIN, NSTEMI S/P [facility] NSTEMI 11/16/22 NSTEMI Reason for Visit Insomnia [...] CHEST PAIN, NSTEMI CHEST PAIN, NSTEMI S/P [facility] NSTEMI 11/16/22 NSTEMI GENERAL ILLNESS Reason for [...] NSTEMI AM EKG CHEST PAIN, NSTEMI S/P [facility] NSTEMI 11/16/22 NSTEMI GENERAL ILLNESS Amb Documentation CONSULT - PROSTATE EORDER S/P [facility] PCI 11/27/22 Reason for Visit Insomnia Trigger finger Acute non-ST elevation myocardial infarction (NSTEMI) 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 NSTEMI, initial episode of care History of endovascular stent graft for abdominal aortic aneurysm (AAA) Hypokalemia Acute non-ST elevation myocardial infarction (NSTEMI) 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 History of endovascular stent graft for abdominal aortic aneurysm (AAA) [id number] Acute non-ST elevation myocardial infarction (NSTEMI) 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 HFrEF (heart failure with reduced ejection fraction) SOB (shortness of breath) History of endovascular stent graft for abdominal aortic aneurysm (AAA) [id number] 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 HFrEF (heart [...] for Visit Atherosclerotic hear t disease of yurok coronary artery without angina pectoris HFrEF (heart failure with reduced ejection fraction) SOB (shortness of breath) History of endovascular stent graft for abdominal aortic aneurysm (AAA) Asthmatic bronchitis with exacerbation [id number] Trigger finger, right middle finger Trigger finger, [...] for Visit Atherosclerotic hear t disease of yurok coronary artery without angina pectoris HFrEF (heart failure with reduced ejection fraction) SOB (shortness of breath) History of endovascular stent graft for abdominal aortic aneurysm (AAA) Asthmatic bronchitis with exacerbation [id number] Trigger finger, right middle finger Trigger finger, [...] Reason for Visit Asthmatic bronchitis with exacerbation [id number] Trigger finger, right middle finger Trigger finger, [...] right ring finger 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 Marcos Rasmussen [facility] 2024 10:53am Other nonspecific abnormal finding of [facility] June 06, 2024 1:14pm 5 m fu June 14, 2024 1:41pm PREOP July 18, 2024 12: 30pm LACTIC ACID ELEVATION AND DEHYDRATION [facility] 2024 4:08pm Reason for Visit Admit Date [...] 2024 10:53am Other nonspecific abnormal finding of [facility] June 06, 2024 1:14pm 5 m fu June 14, 2024 1:41pm PREOP July 18, 2024 12: 30pm LACTIC ACID ELEVATION AND DEHYDRATION [facility] 2024 4:08pm LACTIC ACID ELEVATION AND DEHYDRATION [facility] 2024 1:59pm Chief Complaint Admit Date sob April 11, 2024 1:25pm 6 M FU April 19, 2024 12:55pm walk test April 21, 2024 8:56am sob April 30, 2024 10:06am AAA CAROTID STENOSIS May 04, 2024 7 :47am Bety Castano, New pt from Dr. Marcos myles 2024 10:53am Other nonspecific abnormal finding of [facility] June 06, 2024 1:14pm 5 m fu June 14, 2024 1:41pm Rectal bleeding July 18, 2024 7:0 0am PREOP July 18, 2024 12: 30pm LACTIC ACID ELEVATION AND DEHYDRATION [facility] 2024 4:08pm LACTIC ACID ELEVATION AND DEHYDRATION [facility] 2024 1:59pm Hospital FU August 02, 2024 9:53 am E-ORDER August [...] 12: 30pm LACTIC ACID ELEVATION AND DEHYDRATION [facility] 2024 4:08pm LACTIC ACID ELEVATION AND DEHYDRATION [facility] 2024 1:59pm Hospital August 02, 2024 9:53 [...] 2024 10:53am Other nonspecific abnormal finding of [facility] June 06, 2024 1:14pm 5 m June 14, 2024 1:41pm Rectal bleeding July 18, 2024 7:0 0am PREOP July 18, 2024 12: 30pm LACTIC ACID ELEVATION AND DEHYDRATION [facility] 2024 4:08pm LACTIC ACID ELEVATION AND DEHYDRATION [facility] 2024 1:59pm Hospital August 02, 2024 9:53 [...] 12: 36pm Other nonspecific abnormal finding of [facility] August 31, 2024 1:20pm Reason for Visit [...] 8pm Elevated lactic acid level July 27 025 4:08pm Abnormal abdominal CT scan August 02 9:53am Radiation proctitis August 02, 2024 9:53 am Rectal bleeding August 02, 2024 9:53 am Angiodysplasia of colon August 10, 2024 5:09pm Personal history of other ma lignant neoplasm of large intestine August 10, 2024 5:09pm Rectal bleeding August 10, 2024 5:0 9pm Chief Complaint Admit Date Other nonspecific abnormal finding of [facility] June 06, 2024 1:14pm 5 m fu June 14, 2024 1:41pm Rectal bleeding July 18, 2024 7:0 0am PREOP July 18, 2024 12: 30pm LACTIC ACID ELEVATION AND DEHYDRATION [facility] 2024 4:08pm LACTIC ACID ELEVATION AND DEHYDRATION [facility] 2024 1:59pm Hospital August 02, 2024 9:53 [...] 12: 36pm Other nonspecific abnormal finding of [facility] August 31, 2024 1:20pm 3 M FU [...] 2024 5:0 9pm Chief Complaint Admit Date 3 M FU September 27, 2024 2:06p m pain January 06, 2025 4:08pm Reason for Visit Admit Date Hypoxia September 27, 2024 2:06p m Multiple nodules of lung September 27, 2024 2:06pm 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 September 27, 2024 2:06pm Additional Source Comments (unrecognized sect ion and content) No Status Records FoundNo Status Records FoundNo Status Records FoundNo Status Records Found INFORMATION SOURCE (unrecogn ized section and content) DATE CREATED AUTHOR 06/21/2019 [facility] DATE CREATED AUTHOR AUTHOR'S ORGANIZ ATION 06/12/2020 [facility] DATE CREATED AUTHOR AUTHOR'S ORGANIZ ATION 07/14/2022 [facility] DATE CREATED AUTHOR AUTHOR'S ORGANIZ ATION 10/03/2024 [facility] Goals (unrecognized section and content) Goals may [...] Provider, Refer ring Provider Active Monalisa Lyon HAM PASSER, HAM PASSER-C Attending Provider Active Team Status: Inactive Member Role Status Dates Dr. Spenser Sanchez MD Primary Care Aquilino slater, Attending Provider, Referring Provider Active Team Status: Inactive Member Role Status Dates Dr. Spenser Sanchez MD Primary Care Provider Active Monalisa Lyon HAM PASSER, HAM PASSER-C Attending Provider, Referrin g Provider Active Team [...] Provider, Refer ring Provider Active Cody Espinoza HAM PASSER, HAM PASSER-C Attending Provider Active Gl Accountant Relationship Specialty Start Date End Date Spenser Sanchez MD [address] [place] [address] PCP - General Internal Medicine 07/10/22 Team [...] Provider, Refer ring Provider Active Dr. Yifan Haerd DO Attending Provider Active Team Status: Inactive [...] Other Provider Active Dr. Heri Ewing DO Other Provider Active Dr. Bethel Gallegos MD Attending Provider, Other Provid er Active Dr. Good Morse MD Other Provider Active Team Status: Active Member Role Status Dates Dr. Spenser Sanchez MD Primary Care Provider Active Dr. Rafa Hernandez DO Emergency Provider Active Dr. Dlema Gonsalves MD Admit Provider, Referring Provider, Other [...] Primary Care Provider Active Dr. Joseph Manzano , Emergency Provider Active Team Status: Inactive Member Role Status Dates Dr. Spenser Sanchez MD Primary Care Provider, Refer ring Provider Active Amy Morris HAM PASSER, HAM PASSER-C Attending Provider Active Team Status: Active Member [...] Dr. Christiano Steinberg MD Attending Provider Active Dr. Delma Gonsalves [...] MD Primary Care Provider Active Amy Morris HAM PASSER, HAM PASSER-C Attending Provider, Referring P rovider Active Team Status: Active Member Role Status Dates Dr. Spenser Sanchez MD Primary Care Provider Active Amy Morris NP, HAM PASSER-C Attending Provider, Referring Aquilino slater Active Team Status: Active Member Role Status Dates Jeremiah DELACRUZ, HAM PASSER-C Primary Care Provider Active Team Status: Inactive Member Role Status Dates Dr. Spenser Sanchez MD Primary Care Provider Active Start: March 21, 2024 End: March 21, 2024 Dr. Spenser Sanchez MD Referring Provider Active Start: March 21, 2024 End: March 21, 2024 Nanette Macdonald NP-C Attending Provider Active Start: March 21, 2024 End: March 21, 2024 Team Status: Inactive Member Role Status Dates Dr. Spenser Sanchez MD Primary Care Provider Active Start: March 23, 2024 End: March 23, 2024 Nanette Macdonald NP-C Attending Provider Active Start: March 23, 2024 End: March 23, 2024 Nanette Macdonald NP-C Referring Provider Active Start: March 23, 2024 [...] April 21, 2024 End: April 21, 2024 Tiffanie Carr NP-C Attending Provider Active Start: April 21, 2024 [...] 2024 FLORA Holland Other Provider Active Start: an2024 End: May 04, 2024 Team Status: Active [...] Team Status: Inactive Member Role Status Dates CODY Boothe Attending Provider Active Start: June 06, 2024 End: June 06, 2024 CODY Boothe Referring Provider Active Start: June 06, 2024 End: June 06, 2024 Jeremiah DELACRUZ HAM PASSER-C Primary Care Provider Active Start: June 06, 2024 End: June 06, 2024 Team Status: Inactive Member Role Status Dates Dr. Spenser Sanchez MD Referring Provider Active Start: June 14, 2024 End: June 14, 2024 Monalisa Lyon HAM PASSER, HAM PASSER-C Attending Provider Active Start: June 14, 2024 End: June 14, 2024 Jeremiah STAPLESC, HAM PASSER-C Primary Care Provider Active Start: June 14, 2024 End: June 14, 2024 Team Status: Inactive Member Role Status Dates Dr. Faraz Gonzáles DO Attending Provider Active Start: July 18, 2024 End: July 18, 2024 Jeremiah STAPLESC, HAM PASSER-C Primary Care Provider Active Start: July 18, 2024 End: July 18, 2024 Jeremiah DELACRUZ, HAM PASSER-C Referring Provider Active S tart: July 18, 2024 End: July 18, 2024 Team Status: Active Member Role Status Dates Dr. Faraz Gonzáles DO Attending Provider Active Start: July 18, 2024 Dr. Faraz Gonzáles DO Other Provider Active St art: July 18, 2024 Jeremiah DELACRUZ, HAM PASSER-C Primary Care Provider Active Start: July 18, 2024 Jeremiah DELACRUZ, HAM PASSER-C Referring Provider Active S tart: July 18, 2024 Team Status: Active Member Role Status Dates Jeremiah DELACRUZ, HAM PASSER-C Primary Care Provider Active Start: July 18, 2024 End: July 18, 2024 Dr. Christiano Steinberg MD Attending Provider Active S tart: July 18, 2024 End: July 18, 2024 Dr. Christiano Steinberg MD Referring Provider Active S tart: July 18, 2024 End: July 18, 2024 Team Status: Active Member Role Status Dates Jeremiah DELACRUZ, HAM PASSER-C Primary Care Provider Active Start: July 26, 2024 Nanette Macdonald NP-C Attending Provider Active Start: July 26, 2024 Nanette Macdonald NP-C Referring Provider Active Start: July 26, 2024 Team Status: Active Member Role Status Dates Jeremiah DELACRUZ, HAM PASSER-C Primary Care Provider Active Start: July 27, 2024 Dr. Devon Reagan DO Emergency Provider Activ e Start: July 27, 2024 Dr. Tiki Saldivar MD Admit Provider Active Star t: July 27, 2024 Dr. Tiki Saldivar MD Attending Provider Active Start: July 27, 2024 Team Status: Inactive Member Role Status Dates Jeremiah Mike VSC, HAM PASSER-C Primary Care Provider Active Start: July 27, [...] Status: Active Member Role Status Dates Jeremiah STAPLESC, HAM PASSER-C Primary Care Provider Active Start: July 28, 2024 Dr. Devon Reagan , DO Emergency Provider Activ e Start: July 28, 2024 Dr. Tiki Saldivar MD Admit Provider Active Star t: July 28, 2024 Dr. Tiki Saldivar MD Other Provider Active Star t: July 28, 2024 Dr. hRys Fontana MD Attending Provider Active Start: July 28, 2024 Dr. Rhys Fontana MD Other Provider Active Start: July 28, 2024 Team Status: Inactive Member Role Status Dates Jeremiah Mike VSC, HAM PASSER-C Primary Care Provider Active Start: July 26, 2024 End: July 26, 2024 Nanette Macdonald NP-C Attending Provider Active Start: July 26, 2024 End: July 26, 2024 CODY Orozco Referring Provider Active Start: July 26, 2024 End: July 26, 2024 Team Status: Active Member Role Status Dates Jeremiah Mckeon VSC, HAM PASSER-C Primary Care Provider Active Start: July 18, 2024 Dr. Yifan Coulter MD Attending Provider Active Start: July 18, 2024 Dr. Yifan Coulter MD Referring Provider Active Start: July 18, 2024 Team Status: Inactive Member Role Status Dates Jeremiah Mckeon VSC, HAM PASSER-C Primary Care Provider Active Start: August 02, 2024 End: August 02, 2024 Jeremiah Mckeon VSC, HAM PASSER-C Referring Provider Active S tart: August 02, 2024 End: August 02, 2024 Nanette Macdonald HAM PASSER-C Attending Provider Active Start: August 02, 2024 End: August 02, 2024 Team Status: Inactive Member Role Status Dates Jeremiah Mckeon VSC, HAM PASSER-C Primary Care Provider Active Start: August 02, 2024 End: August 02, 2024 Nanette Macdonald HAM PASSER-C Attending Provider Active Start: August 02, 2024 End: August 02, 2024 Nanette Macdonald HAM PASSER-C Referring Provider Active Start: August 02, 2024 End: August 02, 2024 Team Status: Inactive Member Role Status Dates Jeremiah Mckeon VSC, HAM PASSER-C Primary Care Provider Active Start: August 03, 2024 End: August 03, 2024 Addy STAPLESC, HAM PASSER-C Attending Provider Active Start: August 03, 2024 End: August 03, 2024 Team Status: Active Member Role Status Dates Jeremaih Mckeon VSC, HAM PASSER-C Primary Care Provider Active Start: August 09, 2024 Dr. Viral Gutiérrez DO Emergency Provider Active Start : August 09, 2024 Dr. Rhys Fontana MD Admit Provider Active Start: August 09, 2024 Dr. Rhys Fontana MD Attending Provider Active Start: August 09, 2024 Team Status: Active Member Role Status Dates Jeremiah Mckeon VSC, HAM PASSER-C Primary Care Provider Active Start: August 09, 2024 Dr. Viral Gutiérrez DO Emergency Provider Active Start : August 09, 2024 Dr. Rhys Fontana MD Admit Provider Active Start: August 09, 2024 Dr. Rhys Fontana MD Attending Provider Active Start: August 09, 2024 Dr. Rhys Fontana MD Other Provider Active Start: August 09, 2024 Team Status: Active Member Role Status Dates Jeremiah Mckeon VSC, HAM PASSER-C Primary Care Provider Active Start: August 09, 2024 Dr. Viral Gutiérrez DO Emergency Provider Active Start : August 09, 2024 Dr. Rhys Fontana MD Admit Provider Active Start: August 09, 2024 Dr. Rhys Fontana MD Other Provider Active Start: August 09, 2024 Dr. Faraz Gonzáles DO Attending Provider Active Start: August 09, 2024 Team Status: Active Member Role Status Dates Jeremiah Mike VSC, HAM PASSER-C Primary Care Provider Active Start: August 10, [...] Member Role Status Dates Jeremiah Mike VSC, HAM PASSER-C Primary Care Provider Active Start: August 10, [...] Member Role Status Dates Jeremiah Mike VSC, HAM PASSER-C Primary Care Provider Active Start: August 10, [...] Member Role Status Dates Jeremiah Mike VSC, HAM PASSER-C Primary Care Provider Active Start: August 09, [...] Status: Active Member Role Status Dates Jeremiah Lider VSC, HAM PASSER-C Primary Care Provider Active Start: August 10, 2024 End: August 10, 2024 Dr. Christiano Steinberg MD Attending Provider Active S tart: August 10, 2024 End: August 10, 2024 Dr. Christiano Steinberg MD Referring Provider Active S tart: August 10, 2024 End: August 10, 2024 Team Status: Active Member Role Status Dates Jeremiah Mike VSC, HAM PASSER-C Primary Care Provider Active Start: August 10, [...] Status: Active Member Role Status Dates Jeremiah Lider VSC, HAM PASSER-C Primary Care Provider Active Start: August 11, [...] Member Role Status Dates Jeremiah Lider VSC, HAM PASSER-C Primary Care Provider Active Start: August 31, 2024 End: August 31, 2024 Tiffanie Carr HAM PASSER-C Other Provider Active St art: August 31, 2024 End: August 31, 2024 Monalisa Lyon HAM PASSER, HAM PASSER-C Attending Provider Active Start: August 31, 2024 End: August 31, 2024 Monalisa Lyon HAM PASSER, HAM PASSER-C Referring Provider Active Start: August 31, 2024 End: August 31, 2024 Dr. Aren Montaño MD Other Provider Active Start: August 31, 2024 End: August 31, 2024 Team Status: Inactive Member Role Status Dates Jeremiah Mckeon VSC, HAM PASSER-C Primary Care Provider Active Start: September 27, 2024 End: September 27, 2024 Jeremiah STAPLESC, HAM PASSER-C Referring Provider Active S tart: September 27, 2024 End: September 27, 2024 Monalisa Lyon HAM PASSER, HAM PASSER-C Attending Provider Active Start: September 27, 2024 End: September 27, 2024 Team Status: Active Member Role/Relationship Status Dates Jeremiah Mckeon VSC, HAM PASSER-C Primary Care Provider Active Team Status: Inactive Member Role/Relationship Status Dates Jeremiah Mckeon VSC, HAM PASSER-C Primary Care Provider Active Start: September 27, 2024 End: September 27, 2024 Jeremiah Mckeon VSC, HAM PASSER-C Referring Provider Active S tart: September 27, 2024 End: September 27, 2024 Monalisa Lyon HAM PASSER, HAM PASSER-C Attending Provider Active Start: September 27, 2024 End: September 27, 2024 Team Status: Inactive Member Role/Relationship Status Dates Jeremiah Mckeon VSC, HAM PASSER-C Primary Care Provider Active Start: January 06, 2025 End: January 06, 2025 Ed Physician Provider Emergency Provider Active Start: January 06, 2025 End: January 06, 2025 Source Comments (unrecognize d section and content) In the event this informatio n is protected by the Federal Confidentiality of Alcohol and Drug Abuse Patient Records regulations: The Federal rules restrict any use of the information to criminally investigate or prosecute any alcohol or drug abuse patient.[facility] Reason for Visit (unrecogniz ed section [...] BE BASED ON THE PRIMARY CLINICAL RECORDS. [facility] [employer] [facility]. provides no warranty or guarantee of the accuracy or completeness of information in this document.
== END 2025-01-07 10:06 | disposition home or self-care (01) ==
LOC: ED 10:01
PROVIDERS: Emergency Provider Emergency Medicine; PCP Nurse Practitioner Family; Visit Provider Emergency Medicine
DX: M13.0 Polyarthritis, unspecified (principal); J43.9 Emphysema, unspecified; N18.32 Chronic kidney disease, stage 3b; I25.10 Atherosclerotic heart disease of native coronary artery without angina pectoris; E78.5 Hyperlipidemia, unspecified; Z87.891 Personal history of nicotine dependence; I12.9 Hypertensive chronic kidney disease with stage 1 through stage 4 chronic kidney disease, or unspecified chronic kidney disease
CPT/HCPCS: 99283

== ENCOUNTER → 2025-01-12 | Outpatient (CLI) | payer MEDICARE, OTHER, SELFPAY ==
[2024-02-28 10:04] VITALS: BMI 24.3
[2025-01-12 10:44] LABS: Hematocrit 36.6 % (40-54); Hemoglobin 12.1 g/dL (13.0-16.5); Immature Granulocytes Count 0.050 X10^3/uL (0.0-0.0); Mean Corp Hgb Conc 33.1 g/dL (32-36); Mean Corpuscular Volume 88.0 fL (80-94); Mean Platelet Vol. 9.3 fl (6.2-12.0); NRBC Flagged by Analyzer 0 % (0-5); Platelet Count 407 K/mm3 (150-450); RBC Distribution Width CV 14.5 % (11.6-14.6); RBC Distribution Width SD 45.7 fl (35.1-43.9); Red Blood Count 4.16 M/mm3 (4.6-6.2); White Blood Count 10.6 K/mm3 (4.4-11.0)
[2025-01-12 12:05] LABS: AST(SGOT) 11 U/L (<=37); Alanine Aminotransfer ALT/SGPT 7 U/L (<=46); Albumin, Serum 3.7 g/dL (3.4-4.8); Alkaline Phosphatase 91 U/L (40-129); Anion Gap 13 (5-15); BUN 23 mg/dL (4-19); BUN/Creat Ratio 19.3 RATIO (10-20); Calcium,Total 9.5 mg/dL (7.6-11.0); Carbon Dioxide 21.1 mmol/L (21.0-32.0); Chloride 105 mmol/L (98-108); Globulin 2.6 g/dL (2.2-4.2); Glucose 120 mg/dL (70-99); Potassium 3.8 mmol/L (3.3-5.1)
[2025-01-12 12:54] LABS: CRP 91.10 mg/L (0.0-3.0)
[2025-01-15 16:08] LABS: Anti-Chromatin <0.2 AI (0.0-0.9); Anti-Jo <0.2 AI (0.0-0.9); Anti-dsDNA Ab <1 IU/mL (0-9); SJOGREN'S Anti-SS-A test < 0.2 AI (0.0-0.9); SJOGREN'S Anti-SS-B test < 0.2 AI (0.0-0.9)
== END | disposition home or self-care (01) ==
LOC: LAB 09:12
PROVIDERS: PCP Nurse Practitioner Family
DX: M25.50 Pain in unspecified joint (principal)
CPT/HCPCS: 36415; 80053; 85025; 85652; 86140; 86200; 86225; 86235; 86431

== ENCOUNTER → 2025-02-20 | Outpatient (CLI) | payer MEDICARE, OTHER, SELFPAY ==
[2024-02-28 10:04] VITALS: BMI 24.3
[2025-02-20 12:13] LABS: Hematocrit 36.1 % (40-54); Hemoglobin 11.6 g/dL (13.0-16.5); Immature Granulocytes Count 0.070 X10^3/uL (0.0-0.0); Mean Corp Hgb Conc 32.1 g/dL (32-36); Mean Corpuscular Volume 89.6 fL (80-94); Mean Platelet Vol. 9.4 fl (6.2-12.0); NRBC Flagged by Analyzer 0 % (0-5); POSITIVE COUNT YES; POSITIVE DIFFERENTIAL YES; RBC Distribution Width CV 14.5 % (11.6-14.6); RBC Distribution Width SD 47.5 fl (35.1-43.9); Red Blood Count 4.03 M/mm3 (4.6-6.2); White Blood Count 12.8 K/mm3 (4.4-11.0)
[2025-02-20 13:24] LABS: Differential Indicated SCAN CRITERIA MET; Platelet Count 798 K/mm3 (150-450)
[2025-02-20 14:12] LABS: AST(SGOT) 11 U/L (<=37); Alanine Aminotransfer ALT/SGPT 7 U/L (<=46); Albumin, Serum 3.5 g/dL (3.4-4.8); Alkaline Phosphatase 66 U/L (40-129); Anion Gap 13 (5-15); BUN 28 mg/dL (4-19); BUN/Creat Ratio 16.2 RATIO (10-20); CRP 88.90 mg/L (0.0-3.0); Calcium,Total 9.9 mg/dL (7.6-11.0); Carbon Dioxide 27.6 mmol/L (21.0-32.0); Chloride 97 mmol/L (98-108); Globulin 2.9 g/dL (2.2-4.2); Glucose 119 mg/dL (70-99); Potassium 3.1 mmol/L (3.3-5.1)
[2025-02-21 14:52] LABS: PSA,Total- Diagnostic < 0.02 ng/mL (0.00-4.00)
== END | disposition home or self-care (01) ==
PROVIDERS: PCP Nurse Practitioner Family
DX: M25.50 Pain in unspecified joint (principal); C61 Malignant neoplasm of prostate; D75.839 Thrombocytosis, unspecified
CPT/HCPCS: 36415; 80053; 84153; 85025; 85652; 86140

== ENCOUNTER → 2025-02-21 | Outpatient (CLI) | payer MEDICARE, OTHER, SELFPAY ==
[2024-02-28 10:04] VITALS: BMI 24.3
[2025-02-21 09:32] LABS: Hematocrit 35.4 % (40-54); Hemoglobin 11.7 g/dL (13.0-16.5); Immature Granulocytes Count 0.060 X10^3/uL (0.0-0.0); Mean Corp Hgb Conc 33.1 g/dL (32-36); Mean Corpuscular Volume 88.5 fL (80-94); Mean Platelet Vol. 8.9 fl (6.2-12.0); NRBC Flagged by Analyzer 0 % (0-5); POSITIVE COUNT YES; Platelet Count 787 K/mm3 (150-450); RBC Distribution Width CV 14.4 % (11.6-14.6); RBC Distribution Width SD 46.3 fl (35.1-43.9); Red Blood Count 4.00 M/mm3 (4.6-6.2); White Blood Count 11.6 K/mm3 (4.4-11.0)
[2025-02-21 09:34] LABS: Differential Indicated SCAN CRITERIA MET
== END | disposition home or self-care (01) ==
LOC: PAVLAB 09:13
PROVIDERS: PCP Nurse Practitioner Family
DX: D75.839 Thrombocytosis, unspecified (principal)
CPT/HCPCS: 36415; 85025

== ENCOUNTER → 2025-03-06 | Outpatient (CLI) | payer MEDICARE, OTHER, SELFPAY ==
[2024-02-28 10:04] VITALS: BMI 24.3
[2025-03-06 10:04] LABS: PSA,Total- Diagnostic < 0.02 ng/mL (0.00-4.00)
== END | disposition home or self-care (01) ==
LOC: PAVLAB 08:31
PROVIDERS: PCP Nurse Practitioner Family; Referring Provider Nurse Practitioner; Visit Provider Nurse Practitioner
DX: C61 Malignant neoplasm of prostate (principal)
CPT/HCPCS: 36415; 84153

== ENCOUNTER → 2025-03-20 | Outpatient (CLI) | payer MEDICARE, OTHER, SELFPAY ==
[2024-02-28 10:04] VITALS: BMI 24.3
[2025-03-20 17:25] LABS: Anion Gap 12 (5-15); BUN 21 mg/dL (4-19); BUN/Creat Ratio 12.4 RATIO (10-20); Calcium,Total 9.8 mg/dL (7.6-11.0); Carbon Dioxide 23.2 mmol/L (21.0-32.0); Chloride 104 mmol/L (98-108); Glucose 111 mg/dL (70-99); Potassium 4.1 mmol/L (3.3-5.1)
--- OUTSIDE RECORDS SUMMARY | 2025-03-20 18:29 | XMS RPT_ITS | CCD ---
Author Organization [facility] [place] Inform ion Partnership [facility] Care Team Providers Care Frame Cleaner Name Role Phone Lanny Mccall LPN Unavailable Unavailab Dee Cool Unavailable Unavailable Angie Leigh Unavailable Unavailable Angie Leigh Unavailable Unavailable Alessandro Calabrese Primary Care Provider Dr. Spenser Sanchez Primary Care Provider [phone] Dr. Spenser Sanchez Attending Provider [phone] Dr. Spenser Sanchez Referring Provider [phone] Dr. Darryn Kessler Attending Provider Alexis MEDICATION CARE MANAGER, MEDICATION CARE MANAGER-C Cody Salazar Attending Provider Dr. Spenser Sanchez Primary Care Provider [phone] Dr. Spenser Sanchez Attending Provider [phone] Dr. Spenser Sanchez Referring Provider [phone] Alexis MEDICATION CARE MANAGER, MEDICATION CARE MANAGER-C Cody Salazar Attending Provider Camron MEDICATION CARE MANAGER, MEDICATION CARE MANAGER-C Monalisa Attending Provider Camron MEDICATION CARE MANAGER, MEDICATION CARE MANAGER-C Monalisa Referring Provider Dr. Spenser Sanchez Primary Care Provider [phone] Dr. Spenser Sanchez Attending Provider [phone] Dr. Spenser Sanchez Referring Provider [phone] FLORA Coto Attending Provider Unavailab Dr. Sawyer Stone Attending Provider Dr. Spenser Sanchez Primary Care Provider [phone] Dr. Sawyer Rodríguez Referring Provider Camron MEDICATION CARE MANAGER, MEDICATION CARE MANAGER-C Monalisa Attending Provider [phone] Alexis MEDICATION CARE MANAGER, MEDICATION CARE MANAGER-C Cody Salazar Attending Provider SPENSER SANCHEZ Primary Care Unavailable URIAH MCARTHUR Referring Unavailable SPENSER SANCHEZ Primary Care Unavailable URIAH MCARTHUR Attending Unavailable Spenser Sanchez MD Primary Care Provider [phone] Laura, Dr. Gerenwood Primary Care Provider [phone] Laura, Dr. Greenwood Attending Provider [phone] Dr. Spenser Sanchez Referring Provider [phone] FLORA Coto Attending Provider Unavailab Dr. Sawyer Stone Attending Provider Dr. Sawyer Rodríguez Referring Provider Camron MEDICATION CARE MANAGER, MEDICATION CARE MANAGER-C Monalisa Attending Provider [phone] Alexis MEDICATION CARE MANAGER, MEDICATION CARE MANAGER-C Cody Salazar Attending Provider Dr. Barney Eli [...] Provider Dr. Darryn Kessler Attending Provider Dr. Rfaa Hernandez Emergency Provider Dr. Delma Gonsalves Admit [...] [phone] Dr. Aren Montaño Referring Provider [phone] Nestor HINES, PA Phi Iglesias Attending Provider [...] Spenser Sanchez Referring Provider [phone] Camron MEDICATION CARE MANAGER, MEDICATION CARE MANAGER-C Monalisa Attending Provider Dr. Spenser Sanchez Primary Care Provider [phone] Dr. Spenser Sanchez Attending Provider [phone] Dr. Spenser Sanchez Referring Provider [phone] Ceceline, Dr. Sawyer Craig Attending Provider Marcos, Dr. Sawyer Craig Referring Provider Camron MEDICATION CARE MANAGER, MEDICATION CARE MANAGER-C Monalisa Attending Provider Dr. Yifan Heard Attending Provider Arturo MEDICATION CARE MANAGER, MEDICATION CARE MANAGER-C Amy Attending Provider Dr. Spenser Sanchez MD Primary Care Provider Laura RODRIGUEZ, Dr. Greenwood Referring Provider Torres MEDICATION CARE MANAGER-CNanette Attending Provider Torres MEDICATION CARE MANAGER-CNanette Referring Provider Gage RODRIGUEZ, Dr. Hurley Attending [...] Provider Latoya PA, Tracy Attending Provider Bruno MEDICATION CARE MANAGER-C, Tiffanie Iglesias Referring Provider Mike MEDICATION CARE MANAGER-C, Jeremiah Primary Care Provider Camron MEDICATION CARE MANAGER-C, Mnoalisa Attending Provider Nivia HOLBROOK, Dr. Ruth Attending Provider Mike MEDICATION CARE MANAGER-C, Jeremiah Referring Provider Nivia HOLBROOK, Dr. Ruth Other Provider Laura RODRIGUEZ, Dr. Greenwood Primary Care Provider Laura RODRIGUEZ, Dr. Greenwood Referring Provider Maryan RODRIGUEZ, Dr. Alvarado Attending Provider Maryan RODRIGUEZ, Dr. Alvarado Referring Provider Torres MEDICATION CARE MANAGER-C, Nanette Attending Provider Torres MEDICATION CARE MANAGER-C, Nanette Referring Provider Dr. Devon Reagan DO Emergency Provider Yariel RODRIGUEZ, Dr. Fairbanks Admit Provider Yariel RODRIGUEZ, Dr. Fairbanks Attending Provider Yariel RODRIGUEZ, Dr. Fairbanks Other Provider Addi RODRIGUEZ, Dr. Rhys Bah Attending Provider Addi RODRIGUEZ, Dr. Rhys Bah Other Provider Marylin RODRIGUEZ, Dr. Saha Attending Provider Marylin RODRIGUEZ, Dr. Saha Referring Provider Mustapha MEDICATION CARE MANAGER-C, Javierbuevgeny Attending Provider Marla HOLBROOK, Dr. Stratton Emergency Provider Addi RODRIGUEZ, Dr. Rhys Bah Admit Provider Laura RODRIGUEZ, Dr. Greenwood Primary Care Provider Marla HOLBROOK, Dr. Stratton Emergency Provider Addi RODRIGUEZ, Dr. Rhys Bah Admit Provider Yariel RODRIGUEZ, Dr. Fairbanks Attending Provider Laura RODRIGUEZ, Dr. Greenwood Primary Care Provider Laura RODRIGUEZ, Dr. Greenwood Referring Provider Rufenakira MEDICATION CARE MANAGER-C, Tiffanie Iglesias Attending Provider Addi RODRIGUEZ, Dr. Rhys Bah Referring Provider Rufener MEDICATION CARE MANAGER-C, Tiffanie Iglesias Other Provider Camron MEDICATION CARE MANAGER-C, Monalisa Referring Provider Sabra RODRIGUEZ, Dr. Aren Madera Other Provider Laura RODRIGUEZ, Dr. Greenwood Referring Provider Mckeon MEDICATION CARE MANAGER-C, Jeremiah Primary Care Provider Mckeon MEDICATION CARE MANAGER-C, Jeremiah Referring Provider Lyon MEDICATION CARE MANAGER-C, Monalisa Attending Provider Provider, Ed Physician Emergency Provider Hannah Eli MD, Dr. Corley Emergency Provider Phi Rosen Attending Provider Mckeon MEDICATION CARE MANAGER-C, Jeremiah Primary Care Physician Provider, Ed Physician Attending Physician Flaquito mclaughlin Provider, Ed Physician Emergency Department Phys eric Eli MD, Dr. Corley Attending Physician Sreedhar RODRIGUEZ, Dr. Corley Emergency Department Phys ician Mckeon MEDICATION CARE MANAGER-C, Jeremiah Referring Provider Phi Rosen Attending Physician [phone] Beam MEDICATION CARE MANAGER-CAddy Attending Physician Beam MEDICATION CARE MANAGER-CAddy Referring Provider Faraz Gonzáles Attending Unavailable Mckeon VSC, Jeremiah Referring Unavailable Mckeon VSC, Jeremiah Primary Care Unavailable Marshall Briscoe Attending Unavailable Marshall Briscoe Referring Unavailable Oleghe, Efewongbe Primary Care Unavailable Nanette Macdonald Attending Unavailable Oleghe, Efewongbe Referring Unavailable Oleghe, Efewongbe Primary Care Unavailable Nanette Macdonald Referring Unavailable Nanette Macdonald Attending Unavailable Oleghe, Efewongbe Primary Care Unavailable Mckeon VSC, Jeremiah Primary Care Unavailable Christiano Steinberg Attending Unavailable Maryan, [place] Referring Unavailable Mckeon VSC, Jeremiah Primary Care Unavailable Vivien Steinbergl Attending Unavailable Maryan, Christiano Referring Unavailable Mckeon VSC, Jeremiah Primary Care Unavailable Yifan Coulter Attending Unavailable Yifan Coulter Referring Unavailable Rhys Fontana Attending Unavailable Mckeon VSC, Jeremiah Primary Care Unavailable Tiki Saldivar Consulting Unavailable Tiki Saldivar Admitting Unavailable Rhys Fontana Consulting Unavailable Tracy Klein Referring Unavailable Oleghe, Efewongbe Primary Care Unavailable Heri Williamson Attending Unavailable Faraz Gonzáles Attending Unavailable Mckeon VSC, Jeremiah Referring Unavailable Mckeon VSC, Jeremiah Primary Care Unavailable Faraz Gonzáles Consulting Unavailable Oleghe, Efewongbe Referring Unavailable Mckeon VSC, Jeremiah Primary Care Unavailable Monalisa Lyon NP Attending Unavailable Oleghe, Efewongbe Referring Unavailable Oleghe, Efewongbe Primary Care Unavailable Tracy Klein Attending Unavailable Oleghe, Efewongbe Referring Unavailable Oleghe, Efewongbe Primary Care Unavailable Tiffanie Carr Attending Unavailable Oleghe, Efewongbe Attending Unavailable Oleghe, Efewongbe Referring Unavailable Oleghe, Efewongbe Primary Care Unavailable Nanette Macdonald Attending Unavailable Nantete Macdonald Referring Unavailable Mckeon VSC, Jeremiah Primary Care Unavailable Oleghe, Efewongbe Primary Care Unavailable Faizan Dotson Attending Unavailable Oleghe, Efewongbe Primary Care Unavailable Xavi Almonte Attending Unavailable Mckeon VSC, Jeremiah Primary Care Unavailable Tiffanie Carr Attending Unavailable Tiffanie Carr Referring Unavailable Tracy Klein Consulting Unavailable Oleghe, Efewongbe Primary Care Unavailable Heri Williamson Attending Unavailable Heri Williamson Referring Unavailable Oleghe, Efewongbe Referring Unavailable Oleghe, Efewongbe Primary Care Unavailable Oleghe, Efewongbe Attending Unavailable Tiki Saldivar Attending Unavailable Kotsonis, Rhys F Consulting Unavailable Kotsonis, Rhys F Admitting Unavailable Mckeon VSC, Jeremiah Primary Care Unavailable Tiki Saldivar Attending Unavailable Mckeon VSC, Jeremiah Primary Care Unavailable Provider, Ed Physician Attending Unavailab le Mckeon VSC, Jeremiah Primary Care Unavailable Monalisa Lyon NP Referring Unavailable Camron LEONARD, Monalisa Attending Unavailable Tiffanie Carr Consulting Unavailable Aren Montaño Consulting Unavailable Radha Ramirez Attending Unavailable Radha Ramirez Referring Unavailable Mckeon VSC, Jeremiah Primary Care Unavailable Aren Montaño Consulting Unavailable Faraz Gonzáles Attending Unavailable Mckeon VSC, Jeremiah Primary Care Unavailable Kotsonis, Rhys F Admitting Unavailable Kotsonis, Rhys F Consulting Unavailable Mckeon VSC, Jeremiah Primary Care Unavailable Tiki Saldivar Attending Unavailable Tiki Saldivar Consulting Unavailable Kotsonis, Rhys F Admitting Unavailable Kotsonis, Rhys F Consulting Unavailable Mckeon VSC, Jeremiah Primary Care Unavailable Tiki Saldivar Attending Unavailable Tiki Saldivar Consulting Unavailable Faraz Gonzáles Attending Unavailable Kotsonis, Rhys F Referring Unavailable Nanette Macdonald Attending Unavailable Mckeon VSC, Jeremiah Referring Unavailable Mckeon VSC, Jeremiah Primary Care Unavailable Mckeon VSC, Jeremiah Primary Care Unavailable Elva Flores Attending Unavailable Beam, [place] Referring Unavailable Mckeon VSC, Jeremiah Referring Unavailable Phi Rosen Attending Unavailable Mckeon VSC, Jeremiah Primary Care Unavailable Mckeon VSC, Jeremiah Referring Unavailable Mckeon VSC, Jeremiah Primary Care Unavailable Monalisa Lyon NP Attending Unavailable Beam VSC, Addy Attending Unavailable Beam VSC, Addy Referring Unavailable Mckeon VSC, Jeremiah Primary Care Unavailable Beam VSC, Zebulun Attending Unavailable Beam VSC, Zebulun Referring Unavailable Mckeon VSC, Jeremiah Primary Care Unavailable Mckeon VSC, Jeremiah Primary Care Unavailable Beam VSC, Zebulun Attending Unavailable Nanette Macdonald Attending Unavailable Nanette Macdonald Referring Unavailable Mckeon VSC, Jeremiah Primary Care Unavailable Barney Eli Attending Unavailable Mckeon VSC, Jeremiah Primary Care Unavailable Mckeon VSC, Jeremiah Primary Care Unavailable Beam, Dharmesh Attending Unavailable Beam, Dharmesh Referring Unavailable Mckeon VSC, Jeremiah Primary Care Unavailable Beam VSC, Zebulun Attending Unavailable Beam VSC, Zebulun Referring Unavailable Rhys Fontana Attending Unavailable Mckeon VSC, Jeremiah Primary Care Unavailable Cheryl Merrill Attending Unavailable Rhys Fontana Attending Unavailable Mckeon VSC, Jeremiah Primary Care Unavailable Tiki Saldivar Consulting Unavailable Tiki Saldivar Admitting Unavailable Allergies Allergy Classification Reported Allergen(s) Allergy Type Date of Onset Reaction(s) Facility (9 sources) Adhesive Tape; Translations: [ADHESIVE TAPE] drug allergy 5 Rash [facility] Work Phone: (8 sources) amoxicillin / clavulanate; Translations: [AUGMENTIN] drug allergy 5 tingling and itching all over [facility] Work Phone: (9 sources) aspirin; Translations: [ASPIRIN] drug allergy 5 causes asthma [facility] Work Phone: (8 sources) atorvastatin drug allergy 5 myalgia [facility] Work Phone: (4 sources) metoprolol drug allergy 5 unknown [facility] Work Phone: (4 sources) metoprolol drug allergy 5 [facility] Work Phone: (4 sources) naproxen drug allergy 5 causes asthma [facility] Work Phone: (4 sources) naproxen drug allergy 5 [facility] Work Phone: (4 sources) PARoxetine drug allergy 5 unknown [facility] Work Phone: (7 sources) PARoxetine; Translations: [PAROXETINE] drug allergy 5 Unknown [facility] Work Phone: (8 sources) propoxyphene; Translations: [DARVON] drug allergy 5 unknown [facility] Work Phone: (8 sources) sertraline drug allergy 5 unknown [facility] Work Phone: (8 sources) simvastatin; Translations: [ZOCOR] drug allergy 5 myalgia [facility] Work Phone: (8 sources) Tetracyclines; Translations: [TETRACYCLINES] allergy to substance 5 unknown [facility] Work Phone: (4 sources) tiotropium drug allergy 5 [facility] Work Phone: (8 sources) RUBBING ALCOHOL; Translations: [RUBBING ALCOHOL] drug allergy 5 rash and doss skin [facility] Work Phone: (4 sources) SPIRIVA HANDIHALER drug allergy 5 gets nasty, mean grumpy [facility] Work Phone: (1 source) Aluminum aspirin Drug Allergy 1 Shortness Of Breath [place], [place] (1 source) Amoxicillin Drug Allergy 1 Other (See Comments) [place] (20 sources) atorvastatin; Translations: [atorvastatin calcium] Drug Allergy 1 Other (See Comments) [place] (3 sources) Clavulanate; Translations: [CLAVULANIC ACID] Drug Allergy 9 Unknown [place] (1 source) denatured ethanol Drug Allergy 1 Rash [place] (3 sources) Metoprolol; Translations: [METOPROLOL] Drug Allergy 5 Rash, Other (See Comments) [place] (20 sources) Naproxen; Translations: [NAPROXEN] Drug Allergy 5 Shortness Of Breath, Intolerance [place] (1 source) Propoxyphene Drug Allergy 1 [place] (20 sources) Sertraline; Translations: [SERTRALINE HCL] Drug Allergy 5 Intolerance [place] (20 sources) Simvastatin; Translations: [SIMVASTATIN] Drug Allergy 5 Intolerance [place] (1 source) tiotropium Drug Allergy 1 [place] (20 sources) Adhesive agent; Translations: [ADHESIVE] Propensity to adverse reactions 9 Rash [facility] (20 sources) Amoxicillin; Translations: [amoxicillin trihydrate] Drug Allergy 2 Other [facility] Comment on above: TINGLING ALL OVER (20 sources) Aspirin Drug Allergy 5 Intolerance [facility] Comment on above: ASTHMA (20 sources) Isopropyl Alcohol Drug Allergy 2 Rash [facility] (20 sources) Metoprolol; Translations: [metoprolol succinate] Drug Allergy 2 [facility] (20 sources) PARoxetine; Translations: [PAROXETINE HCL] Drug Allergy 5 Intolerance [facility] (20 sources) Propoxyphene; Translations: [PROPOXYPHENE HCL] Drug Allergy 5 Intolerance [facility] (20 sources) tiotropium; Translations: [TIOTROPIUM BROMIDE] Drug Allergy 5 Intolerance [facility] Comment on above: SHORT TEMPER (20 sources) potassium clavulanate; Translations: [potassium clavulanate] Propensity to adverse reactions 2 tingling all over [facility] (2 sources) atorvastatin; Translations: [ATORVASTATIN] Drug Allergy 5 Intolerance [facility] (2 sources) Doxycycline; Translations: [DOXYCYCLINE] Drug Allergy 7 Rash, Itching [facility] (2 sources) Sertraline; Translations: [SERTRALINE] Drug Allergy 5 Unknown [facility] (2 sources) ALCOHOL; Translations: [ALCOHOL] Propensity to adverse reactions to drug (disorder) 9 Hives [facility] (2 sources) AMOXICILLIN-POT CLAVULANATE; Translations: [AMOXICILLIN-POT CLAVULANATE] Propensity to adverse reactions to drug (disorder) 5 Intolerance [facility] (1 source) OTHER; Translations: [OTHER] Propensity to adverse reactions (disorder) 8 [facility] (1 source) Environmental allergies [Other] Propensity to adverse reactions 6 [facility] (1 source) tape [Other] Propensity to adverse reactions 8 [facility] Work Phone: (1 source) Aspirin Drug Allergy 5 [facility] (1 source) Iodine Drug Allergy 5 [facility] (1 source) Isopropyl Alcohol Drug Allergy 5 [facility] (1 source) Naproxen Drug Allergy 5 [facility] (1 source) Simvastatin Drug Allergy 5 [facility] Medications Current Medications Medication Drug Class(es) [...] April 30, 2022 1:00am Cholecalciferol 50 MCG (1999 UT) TABS Take 2,000 Units by mouth 0 Active Disability Placard (11 sources) Start: 02-11-2023 Disability Laurent card Active 0 .ROUTE .MEDSUPPLY 1 0 February 11, 2023 12:00am chronic respiratory distress J96.10 [id number] Start: 02-11-2023 Disability Laurent card Active 0 .ROUTE .MEDSUPPLY February 10, 2023 11:00pm [id number] Start: 02-11-2023 Disability Laurent card Active 0 .ROUTE .MEDSUPPLY February 11, 2023 12:00am [id number] doxycycline monohydrate 100 mg oral capsule (15 sources) Tetracycline-class Drug Start: 01-08-2025 take 1 capsule b y mouth twice daily Start: 04-11-2024 End: 04-19-2024 take 1 capsule by mouth twice daily Doxycycline Monohydrate 100 mg capsule Discontinued 100 mg PO TWICE A DAY 14 0 April 11, 2024 1:00am April 19, 2024 1:57pm Formoterol Fumarate (Perforomist) 20 mcg/2 mL solution for nebulization (20 sources) Start: 10-26-2024 take 1 mL by inhalation every twelve hours Formoterol Fumarate (Perforomist) 20 mcg/2 mL solution for nebulization Active 2 mL INHALATION Q12H 120 October 26, 2024 9:09am Stage 2 moderate [...] persistent asthma, uncomplicated copd Start: 05-06-2023 End: 05-28-2025 take 1 mL by inhalation every twelve [...] 2 ML INHALATION Q12H May 05, 2023 11:16am May 06, 2023 [...] nebulization Discontinued 2 ML INHALATION Q12H December 252 3:18pm May 05, 2023 11:17am Start: 12-25-2021 End: 05-05-2023 take 1 mL by inhalation every twelve hours Formoterol Fumarate (Perforomist) 20 mcg/2 mL solution for nebulization Discontinued 2 ML INHALATION Q12H 120 December 25, 2021 2:18pm May 05, 2023 [...] 30, 2022 12:00am administer with a meal Bristol-3 Fatty Acids (OMEGA-3 FISH OIL PO) (1 source) Bristol-3 Fatty Ac ids (OMEGA-3 FISH OIL PO) Take by mouth 0 Active predniSONE 10 mg oral tablet (20 sources) Corticosteroid Start: 01-07-2025 take 4 tablets by mouth once daily, then take 3 tablets by mouth once daily, then take 2 tablets by mouth once daily, then take 1 tablet by mouth once daily Start: 04-30-2024 End: 06-14-2024 take 1 tablet by mouth once daily Prednisone 50 mg tablet Discontinued 50 mg PO DAILY 5 0 April 30, 2024 1:00am June 14, 2024 2:46pm Start: 01-21-2024 End: 04-30-2024 Prednisone 10 mg tablet Discontinued 10 mg PO daily 30 0 March 21, 2024 1:00am April 10, 2024 4:21pm take 4 tabs for three days, then 3 tabs for three days, then 2 tabs for three days, then 1 tab for 3 days Start: 12-24-2022 End: 05-12-2023 Prednisone 10 mg tablet Discontinued 10 mg PO daily 30 0 December 24, 2022 12:00am May 12, 2023 2:43pm take 4 tabs for three days, then 3 tabs for three days, then 2 tabs for three days, then 1 tab for 3 days Start: 10-28-2022 End: 11-10-2022 take 3 tablets by mouth once daily at mealtime Prednisone 20 mg tablet Discontinued 60 mg PO daily 15 0 October 28, 2022 12:00am November 10, 2022 1:42pm administer with food or milk Start: 10-28-2022 End: 11-10-2022 Start: 08-08-2022 End: 10-07-2022 take 2 tablets by mouth once daily Prednisone 20 mg tablet Discontinued 40 mg PO DAILY 8 0 August 08, 2022 12:00am October 07, [...] tablet Discontinued 10 mg PO daily 30 October 16, 2020 12:00am November 06, 2020 1:48pm take 4 tabs for three days, then 3 tabs for three days, then 2 tabs for three days, then 1 tab for 3 days Start: 07-01-2019 End: 12-11-2019 Prednisone 10 mg tablet Discontinued 10 mg PO daily 30 July 04, 2019 1:00am December 11, 2019 1:06pm take 4 tabs for three days, then 3 tabs for three days, then 2 tabs for three days, then 1 tab for 3 days Start: 07-01-2019 End: 07-04-2019 Prednisone 10 MG tablet Discontinued 0 mg PO DAILY Taper: Frequency: DAILY@0800 Days: 3 Hours: 0 Dose: 40 Frequency: DAILY@0800 Days: 3 Hours: 0 Dose: 30 Frequency: DAILY@0800 Days: 3 Hours: 0 Dose: 20 Frequency: DAILY@0800 Days: 3 Hours: 0 Dose: 10 July 01, 2019 1:00am July 04, 2019 [...] tab by mouth for 3 days. PREDNISONE [id number] Monalisa Lyon [facility] Start: 05-07-2016 End: 05-19-2016 PREDNISONE 10 MG TABS Take 4 tabs by mouth for 3 days, then 3 tabs by mouth for 3 days, then 2 tabs by mourth for 3 days, then 1 tab by mouth for 3 days. PREDNISONE [id number] Monalisa Castro [facility] Start: 02-14-2016 End: 02-26-2016 PREDNISONE 10 MG TABS Take 4 tabs by mouth for 3 days, then 3 tabs by mouth for 3 days, then 2 tabs by mourth for 3 days, then 1 tab by mouth for 3 days. PREDNISONE [id number] Monalisa S [facility] Start: 08-05-2015 End: 08-26-2015 PREDNISONE 10 MG TABS Take 4 tabs by mouth for 3 days, then 3 tabs by mouth for 3 days, then 2 tabs by mourth for 3 days, then 1 tab by mouth for 3 days. [facility] [id number] [facility] rice and coq10 (4 sources) [...] mg/ml injection (2 sources) Start: 06-07-2020 sodium chlorid e flush 0.9 % injection 10 mL Turmeric [...] 23, 2021 1:03am Start: 06-20-2021 End: 06-23-2021 [id number] 200 actuat albuterol 0.09 mg/actuat metered dose inhaler (20 sources) beta2-Adrenergic Agonist Start: 07-02-2021 End: 07-27-2024 Albuterol Sulfate (Ventolin Hfa) 90 mcg/actuation HFA aerosol inhaler Discontinued 2 NMA INHALATION Q4H as needed for shortness of breath or wheezing 18 6 July 02, 2021 1:00am July 27, 2024 [...] RESPIM AT 20-100 MCG/ACT AERS prn IPRATROPIUM-ALBUTEROL [id number] Monalisa Lyon [facility] HOME PARAPROFESSIONAL COMBIVENT RESPIM AT 20-100 MCG/ACT AERS prn IPRATROPIUM-ALBUTEROL [id number] Monalisa Lyon GROUP HOME PARAPROFESSIONAL COMBIVENT RESPIM AT 20-100 MCG/ACT AERS prn IPRATROPIUM-ALBUTEROL [id number] Latonya Gant LPN Comment on above: NEEDED amLODIPine 5 mg oral tablet (20 sources) Dihydropyridine Calcium Channel Kimberley Start: 12-02-19 End: 03-21-20 24 take 1 tablet by mouth once daily Amlodipine 5 mg tablet Discontinued 5 mg PO DAILY 90 3 December 01, 2022 12:00am March 21, 2024 [...] NEBU 1 ampule twice daily ARFORMOTEROL TARTRATE [id number] Monalisa Castro Camron LYLE Start: 09-18-2015 End: 12-11-2015 BROVANA 15 MCG/2ML NEBU 1 am pule twice daily ARFORMOTEROL TARTRATE [id number] Dee Barahona ascorbic acid 500 mg oral capsule (20 [...] tablet Discontinued 250 mg PO daily 6 January 17, 2019 12:00am January 19, 2019 10:34am Start: 06-09-2017 End: 08-30-2017 take 1 tablet by mouth once daily Azithromycin 250 mg tablet Discontinued 250 mg PO daily 6 0 June 09, 2017 1:00am August 30, 2017 2:49pm Start: 08-28-2016 End: 12-16-2016 AZITHROMYCIN 250 MG TABS 2 t ablets by mouth today and then 1 tablet daily for the next 4 days AZITHROMYCIN [id number] Angie Leigh bempedoic acid 180 mg / ezetimibe 10 mg oral tablet (19 sources) Dietary Cholesterol Absorption Inhibitor Start: 01-12-2023 [...] nebulization Discontinued 0.25 mg INHALATION Q12H 60 6 May 31, 2019 11:17am June 13, 2019 12:37pm Start: 06-11-2017 End: 08-19-2020 Start: 04-11-2015 budesonide (PU LMICORT) 0.5 mg/2 mL nebulizer solution Use 0.5 mg via nebulizer twice daily. 0 04/11/2015 Active Start: 12-19-2014 BUDESONIDE 0.5 MG/2ML SUSP INH BID BUDESONIDE [id number] Dee Almeida BACTERIOLOGIST SOIL Start: 12-19-2014 BUDESONIDE 0.5 MG/2ML SUSP INH daily BUDESONIDE [id number] Darryn Kessler Comment on above: Use 0.5 mg via nebul izer twice daily. Tanmqop-G5-Nrhh-Coppe r-Odalys (Citracal-D3 Maximum Plus) 325 mg-12.5 mcg -2.75 mg tablet (14 sources) Start: 11-14-2022 End: 03-21-2024 Rmnvdxe-K2-Nxgd-Copper-Ma cheyenne (Citracal-D3 Maximum Plus) 325 mg-12.5 mcg -2.75 mg tablet Discontinued 2 {tbl} PO TWICE A DAY November 14, 2022 12:00am March 21, 2024 2:29pm bone deficiency Start: 11-14-2022 take 2 tablets by [facility] twice daily Snumshe-Z6-Nwzc-Copper-Odalys (Citracal- D3 Maximum Plus) 325 mg-12.5 mcg -2.75 mg tablet Active 2 TABLET PO TWICE A DAY November 13, 2022 11:00pm Start: 11-14-2022 take 2 tablets by [facility] twice daily Bxwvppb-M8-Bkyw-Copper-Odalys (Citracal- D3 Maximum Plus) 325 mg-12.5 mcg [...] take 2 capsules by mouth once daily Ywwvgrnfpog-Jktkqvggi-Dpz C-Mn (GLUCOSAMINE CHONDROITIN MAXSTR) 500-400 mg cap Take 2 capsules by mouth once daily. 0 09/30/2012 Active take 1 tablet by mouth once [facility] GLUCOSAMINE-CHONDROITIN 500-400 MG CAPS One tablet by mouth daily GLUCOSAMINE-CHONDROITIN [id number] Gabriel Galdamez Comment on above: Take 2 capsules by m out once daily. chondroitin sulfates 400 mg / glucosamine hydrochloride 500 mg / methylsulfonylmethane 83 mg oral tablet (20 sources) Start: 02-15-20 13 End: 04-22-20 take 1 tablet by mouth once daily Glucosamine Vrq-Icc-Lzohgrytxk 1 EACH tablet Discontinued 1 {tbl} PO DAILY February 14, 2013 12:00am April 22, 2020 1:59pm supplement Start: 02-14-2013 End: 04-22-2020 Start: 02-14-2013 End: 04-22-2020 take 1 tablet by mouth once daily Glucosamine Xyk-Dxb-Hlhxckqrwb Discontinued 1 TABLET PO DAILY February 14, [...] as per instructions SOD PICOSULFATE-MAG OX-CIT ACD [id number] Marcela Zarate clopidogrel 75 mg oral tablet [...] tabs every 6 hrs as needed DIPHENOXYLATE-ATROPINE [id number] Darryn Kessler DIPHENATOL 2.5-0 .025 MG TABS two tabs every 6 hrs as needed DIPHENOXYLATE-ATROPINE [id number] Gabriel Galdamez fluticasone propionate 0.05 mg/actuat metered dose nasal [...] each nostril daily as needed FLUTICASONE PROPIONATE [id number] Dee Barahona take 1 spray(s) [facility] route once daily fluticasone (FLONASE) 50 mcg/actuation nasal spray Use 1 [place] in each nostril once daily. 0 Active take 1 spray(s) nasa l route once daily fluticasone (FLONASE) 50 MCG/ACT nasal spray 1 spray by Each Nostril route daily 0 Active Comment on above: Use 1 [place] in each nostril once daily. FLUTICASONE-SALME TEROL (12 sources) Corticosteroid, beta2-Adrenergic Agonist Start: 09-10-2015 take 1 puff(s) by inhalation twice daily ADVAIR DISKUS 250-50 MCG/DOSE AEPB 1 puff INH BID FLUTICASONE-SALMETERO L [id number] Monalisa Lyon CNP Start: 09-10-2015 End: 09-11-2015 take 1 puff(s) by inhalation twice daily ADVAIR DISKUS 250-50 MCG/DOSE AEPB 1 puff INH BID FLUTICASONE-SALMETEROL [id number] Monalisa Lyon CNP ADVAIR DISKUS 25 0-50 MCG/DOSE AEPB 1 puff q d FLUTICASONE-SALMETEROL [id number] Latonya Gant LPN formoterol fumarate 0.01 mg/ml inhalation solution (20 sources) beta2-Adrenergic Agonist Start: 06-11-2017 End: 10-26-2024 take 1 mL by inhalation every twelve hours Formoterol Fumarate (Perforomist) 20 mcg/2 mL solution for nebulization Discontinued 2 mL INHALATION Q12H 120 October 26, 2024 8:15am October 26, 2024 9:09am 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 classification Chronic obstructive pulmonary disease, unspecified Start: 06-11-2017 End: 12-18-2020 Start: 06-11-2017 End: [...] 20 MCG/2ML NEBU INH daily FORMOTEROL FUMARATE [id number] Darryn Kessler Start: 12-19-2014 PERFOROMIST 20 MCG/2ML NEBU INH daily FORMOTEROL FUMARATE [id number] Monalisa Lyon [employer] PARAPROFESSIONAL Start: 12-19-2014 PERFOROMIST 20 MCG/2ML NEBU INH BID FORMOTEROL FUMARATE [id number] Dee Hernandesiesha Almeida BACTERIOLOGIST SOIL Start: 12-19-2014 PERFOROMIST 20 MCG/2ML NEBU INH BID FORMOTEROL FUMARATE [id number] Monalisa Lyon [employer] PARAPROFESSIONAL Start: 12-19-2014 PERFOROMIST 20 MCG/2ML NEBU INH BID FORMOTEROL FUMARATE [id number] Darryn Kessler Comment on above: Use 20 mcg via nebul izer every 12 hours. MOMETASONE FURO-FORMOTEROL FUM (16 sources) Corticosteroid, beta2-Adrenergic Agonist Start: 06-12-2014 End: 12-07-2014 DULERA 100-5 MCG/ACT AERO 1 puff a day MOMETASONE FURO-FORMOTEROL FUM [id number] Latonya Gant LPN Start: 06-12-2014 DULERA 100-5 M CG/ACT AERO 1 puff a day MOMETASONE FURO-FORMOTEROL FUM [id number] Darryn Kessler DULERA 100-5 MCG /ACT AERO 1 puff bid MOMETASONE FURO-FORMOTEROL FUM [id number] Darryn Kessler End: 03-12-2015 DULERA 100-5 MCG/ACT AERO 1 puff bid MOMETASONE FURO-FORMOTEROL FUM [id number] Latonya Gant LPN furosemide 40 mg oral [...] TBEC One tablet by mouth daily GARLIC [id number] Dee Almeida LPN Start: 06-06-2010 take 1 capsule recta l [...] - 50 mg PO AT BEDTIME 30 0 April 30, 2022 1:00am May 10, 2022 7:56pm Start: 04-30-2022 End: 05-10-2022 Start: 04-30-2022 End: 05-10-2022 take 25-50 mg by mouth at bedtime Hydralazine Discontinued 25 - 50 MG PO AT BEDTIME April 30, 2022 1:00am May 10, 2022 7:56pm hydrocortisone acetate 25 mg rectal suppository (14 sources) Corticosteroid Start: 08-02-2024 End: 08-11-2024 Hydrocortisone Acetate (Anusol-Hc) 25 mg suppository Discontinued 25 mg RC AT BEDTIME 12 August 02, 2024 12:00am August 11, 2024 9:46am proctitis Start: 03-21-2024 End: 07-17-2024 Hydrocortisone 2.5 % cream w ith perineal applicator Discontinued 1 NMA RC 1 to 2 times per day as needed for rectal bleeding March 21, 2024 1:00am July 17, 2024 1:18pm Hydrocortisone Acetate (Anusol-Hc) 25 mg suppository (4 sources) Start: 08-02-2024 End: 08-11-2024 Hydrocortisone Acetate [...] Combination No.4 (Probiotic) 3 billion cell capsule (12 sources) Start: 12-02-2022 End: 08-03-2023 take 3 [...] ml leuprolide acetate 60 mg/ml prefilled syringe (20 sources) Gonadotropin Releasing Hormone Receptor Agonist Start: [...] tab d ialy for 5 days LEVOFLOXACIN [id number] Monalisa Lyon CNP Start: 08-05-2015 End: 12-16-2016 take 1 tablet by mouth once daily LEVAQUIN 500 MG TABS One tablet PO daily LEVOFLOXACIN [id number] Dee Almeida LPN loperamide hydrochloride 2 mg [...] tablet by mouth three times daily LORAZEPAM [id number] Dee Almeida LPN Start: 04-10-2014 End: 05-08-2022 take 3 tablets by mouth at bedtime as needed for sleep Lorazepam (Ativan) 0.5 mg tablet Discontinued 1.5 mg PO AT BEDTIME as needed for sleep 90 0 April 07, 2022 4:51pm May 08, 2022 4:22pm Insomnia Primary insomnia take 1 tablet by kevin th once daily LORAZEPAM 1 MG TABS One tablet by mouth daily LORAZEPAM [id number] Monalisa Lyon [employer]ROFESSIONAL Comment on above: Take three tablets b [...] mg tablet Discontinued 100 mg PO DAILY April 17, 2021 1:00am July 21, 2021 10:08am Start: 04-17-2021 End: 12-29-2021 take 50 mg by mouth twice daily Losartan Discontinued 50 MG PO TWICE A DAY July 21, 2021 10:07am December 29, 2021 2:59pm Start: 03-17-2021 End: 04-17-2021 take 2 tablets by mouth once daily Losartan 50 mg tablet Discontinued 100 mg PO DAILY March 17, 2021 2:13pm April 17, 2021 2:35pm bp Start: 03-04-2021 End: 03-17-2021 Losartan 50 mg tablet Discon tinued 75 mg PO DAILY March 04, 2021 11:01am March 17, 2021 [...] MG PO DAILY April 30, 2022 12:00am meloxicam 7.5 mg oral tablet (3 sources) Nonsteroidal Anti-inflammatory Drug Start: 01-07-2025 End: 01-08-2025 take 1 tablet by mouth once daily as needed for pain Meloxicam 7.5 mg tablet Discontinued 7.5 mg PO DAILY as needed for pain 4 0 January 07, 2025 9:54am January 08, 2025 3:37pm mirtazapine 15 mg oral tablet (20 sources) [...] at bedtime. montelukast 10 mg oral tablet (15 sources) Leukotriene Receptor Antagonist Start: 4 End: 4 take 1 tablet by mouth once daily in the evening Montelukast 10 mg tablet Discontinued 10 mg PO EVERY EVENING 90 May 12, 2023 1:00am January 07, 2024 [...] DAILY April 30, 2022 12:00am Multivitamin tablet (5 sources) Start: 04-30-2022 End: 08-03-2023 Multivitamin tablet [...] 0.4 MG SUBL as nee ded NITROGLYCERIN [id number] Monalisa Lyon [employer]ROFESSIONAL Comment on above: Dissolve 1 tablet un camelia the tongue as needed. Tiotropium-Olodaterol (13 sources) Anticholinergic, beta2-Adrenergic Agonist Start: 11-08-2024 End: 01-08-2025 Tiotropium-Olodaterol (Stiolto Respimat) 2.5-2.5 mcg/actuation mist Discontinued 2 NMA INHALATION DAILY 4 November 08, 2024 12:00am January 08, 2025 3:38pm Start: 11-08-2024 Tiotropium-Olo daterol (Stiolto Respimat) 2.5-2.5 mcg/actuation mist Active 2 NMA INHALATION DAILY 4 November 08, 2024 12:00am Start: 09-10-2015 STIOLTO RESPIM AT 2.5-2.5 MCG/ACT AERS 2 puffs daily TIOTROPIUM BROMIDE-OLODATEROL [id number] Monalisa Lyon [employer] PARAPROFESSIONAL Start: 09-10-2015 End: 12-11-2015 STIOLTO RESPIMAT 2.5-2.5 MCG /ACT AERS 2 puffs daily TIOTROPIUM BROMIDE-OLODATEROL [id number] Dee Barahona Geief-4w-Krh-Epa-Fish Oil-D3 (20 sources) Start: 05-15-2020 End: 12-20-2020 Ildlh-1d-Ien-Epa-Fish Oil-D3 Discontinued 1 EACH PO DAILY May 15, 2020 12:00am December 20, 2020 10:24am Start: 05-15-2020 End: 12-20-2020 Vsvzp-3h-Jhg-Epa-Fish Oil-D3 Discontinued 1 EACH PO DAILY May 15, 2020 1:00am December 20, 2020 11:24am Cykqe-7t-Hwx-Epa-Fish Oil-D3 1 EACH capsule (5 sources) Start: 05-15-2020 End: 12-20-2020 take 1 capsule by mouth once daily Obdug-1a-Tce-Epa-Fish Oil-D3 1 EACH capsule Discontinued 1 NMA [...] Comment on above: Take 1 capsule by [facility] once daily. potassium chloride 20 [...] 20, 2023 12:00am January 07, 2024 1:13pm Red Rice Yeast (20 sources) Start: 06-29-2019 [...] Start: 05-07-2016 take 1 capsule by mo [facility] once daily RED YEAST RICE CAPS 1000 mg po once daily RED YEAST RICE EXTRACT CAPS [id number] Dee Gutiérrezach BACTERIOLOGIST SOIL tamsulosin hydrochloride 0.4 mg oral capsule (20 [...] once daily. ticagrelor 90 mg oral tablet (20 sources) Start: 3 End: 3 take 1 tablet by mouth every twelve hours Ticagrelor 90 mg tablet Discontinued 90 mg PO Q12H 60 2 November 27, 2022 12:00am December 28, 2022 9:38am ubidecarenone 75 mg oral capsule (19 sources) Start: 3 End: 4 Coenzyme Q10 (Ultra Coq10) 75 mg capsule Discontinued 75 mg PO DAILY December 18, 2022 12:00am August 03, 2023 2:30pm verapamil hydrochloride 240 mg extended release oral tablet (20 sources) Calcium Channel Kimberley Start: 1 End: take 1 tablet by mouth at bedtime [...] in the evening VERELAN PM 200 MG [id number] One tablet by mouth daily VERAPAMIL HCL [id number] Dee Hernandesiesha Almeida LPN take 1 tablet by kevin th once daily in the evening VERELAN PM 200 MG [id number] One tablet by mouth daily VERAPAMIL HCL [id number] Monalisa Lyon CNP take 1 tablet by kevin th once daily in the evening VERELAN PM 200 MG [id number] One tablet by mouth daily VERAPAMIL HCL [id number] Gabriel Galdamez Comment on above: 240 mg [...] 30, 2022 12:00am Vitamin B Complex tablet (5 sources) Start: 12-02-2022 End: 08-03-2023 Vitamin B Complex tablet Dis continued 1 {tbl} PO DAILY December 02, 2022 12:00am August 03, 2023 2:31pm Problems Active Problems Problem Classification Problem Date Documented Date Episodic/Chronic Abdominal hernia (20 sources) Left inguinal hernia ; Translations: [Unilateral inguinal hernia, without obstruction or gangrene, not specified as recurrent] Onset: 09-21-19 08 10-01-2021 Episodic Comment on above: left Acquired foot deformities (20 sources) Acquired deformity of toe; Translations: [Acquired deformities of toe(s), unspecified, unspecified foot] 10-21-2022 Episodic Acute myocardial infarction (20 sources) Myocardial infarction; Translations: [Non-ST elevation (NSTEMI) myocardial infarction] Onset: 11-15-19 23 11-14-2022 Chronic Anal and rectal conditions (13 sources) Radiation proctitis; Translations: [Radiation proctitis] 08-02-2024 Episodic Aortic; peripheral; and visceral artery aneurysms (20 sources) Abdominal aortic aneurysm; Translations: [Abdominal aortic aneurysm, without rupture] 10-01-2021 Chronic Asthma (20 sources) Moderate persistent asthma; Translations: [Asthma] Onset: 06-12-19 15 06-12-2014 Chronic Doss (5 sources) Partial thickness burn of skin of finger; Translations: [Burn of second degree of single left finger (nail) except thumb, initial encounter] Onset: 01-09-20 25 01-08-2025 Episodic Cancer of colon (1 source) Malignant tumor of colon; Translations: [Malignant neoplasm of colon, unspecified] Onset: 09-21-19 08 09-21-2007 Chronic Cancer of prostate (20 sources) Malignant tumor [...] of chronic obstructive airways disease] Onset: 02-28-20 05 12-20-2015 Chronic Comment on above: FEV1 59% of predicte d Chronic obstructive pulmonary disease and bronchiectasis (13 sources) Bronchitis; Translations: [Bronchitis, not specified as acute or chronic] 04-19-2024 Episodic Congestive heart failure; nonhypertensive (20 sources) Heart failure with reduced ejection fraction; Translations: [Unspecified systolic (congestive) heart failure] 12-18-2022 Chronic Coronary atherosclerosis and other heart disease (20 sources) Coronary atherosclerosis; Translations: [History of acute ST segment elevation myocardial infarction] Onset: 02-28-20 Chronic Comment on above: PCI-JIM-Mid RCA 05/27; PCI-JIM-Mid LAD, JIM-Prox LCx and POBA-OM1 05/30/2007; DCL-Brri-NIF, JIM-Mid LCx, and LCx Posterior lateral extension ; JIM-ISR-Mid LAD 06/07/20;JIM-Resolute Dewey 2.11N35bm to proximal LAD -11/27/2022. Deficiency and other anemia (18 sources) Anemia; Translations: [Anemia, unspecified] 2023 Episodic Comment on above: borderline Disorders of lipid metabolism (20 sources) Hyperlipidemia; Translations: [Hyperlipidemia, unspecified] Onset: 02-28-20 Chronic Esophageal disorders (1 source) Gastroesophageal reflux disease; Translations: [Gastro-esophageal reflux disease without esophagitis] Onset: 02-28-20 05 02-27-2005 Chronic Essential hypertension (20 sources) Essential hypertension; Translations: [Essential (primary) hypertension] Onset: 02-28-20 05 Chronic Fever of unknown origin (20 sources) Fever; Translations: [Fever, unspecified] 08-08-2022 Episodic Fracture of lower limb (20 sources) Closed fracture of great toe; Translations: [Displaced unspecified fracture of right great toe, initial encounter for closed fracture] 10-21-2022 Episodic Genitourinary symptoms and ill-defined conditions (20 [...] for therapeutic drug monitoring] Episodic Other aftercare (13 sources) Long-term current use of diuretic; Translations: [...] finger (acquired)] 04-14-2023 Episodic Other gastrointestinal disorders (12 sources) Vascular ectasia of colon; Translations: [Angiodysplasia of colon without hemorrhage] 08-09-2024 Episodic Other lower respiratory disease (20 sources) Hypoxia; Translations: [Hypoxemia] 05-07-2020 Episodic Comment on above: 3 L nasal cannula ox ygen with sleep Other lower respiratory disease (20 sources) Dyspnea; Translations: [Shortness of breath] 12-18-2022 Episodic Other lower respiratory disease (20 sources) Multiple nodules of lung; Translations: [Other nonspecific abnormal finding of lung field] 05-04-2024 Episodic Other non-traumatic joint disorders (3 sources) Polyarthropathy; Translations: [Polyarthritis, unspecified] 01-07-2025 Chronic Other non-traumatic joint disorders (1 source) Polyarthritis, unspecified; Translations: [Polyarthritis, unspecified] Onset: 01-12-20 Chronic Other non-traumatic joint disorders (18 sources) Swollen ankle region; Translations: [Effusion, unspecified ankle] 2023 Episodic Other non-traumatic joint disorders (1 source) Pain in unspecified joint; Translations: [Pain in unspecified joint] Onset: 02-27-20 Episodic Other screening for suspected conditions (not [...] [Epistaxis] 10-01-2021 Episodic Other upper respiratory disease (13 sources) Acute bronchospasm; Translations: [Acute bronchospasm] 04-19-2024 Episodic Other upper respiratory infections (1 source) Chronic sinusitis; Translations: [Chronic sinusitis, unspecified] Onset: 07-30-19 07 07-29-2006 Chronic Residual codes; unclassified (1 source) Hypoxia; Translations: [Idiopathic sleep related nonobstructive alveolar hypoventilation] Onset: 03-03-20 19 03-03-2019 Chronic Residual codes; unclassified (20 sources) Insomnia; Translations: [Insomnia, unspecified] Onset: 02-28-2002-26-2021 Episodic Residual codes; unclassified (20 sources) Insomnia, unspecified; Translations: [Insomnia, unspecified] Episodic Residual codes; unclassified (11 sources) Other specified postprocedural states; Translations: [Personal history of surgery to other organs] Episodic Residual codes; unclassified (1 source) Procedure and treatment not carried out due to patient leaving prior to being seen by health care provider; Translations: [Procedure and treatment not carried out due to patient leaving prior to being seen by health care provider] Onset: 01-12-20 Episodic Secondary malignancies (1 source) Secondary malignant neoplasm of intra-abdominal lymph nodes; Translations: [Secondary and unspecified malignant neoplasm of intra-abdominal lymph nodes] Onset: 12-06-19 08 12-06-2007 Chronic Spondylosis; intervertebral disc disorders; other back problems (20 sources) Low back pain; Translations: [Low back pain] 10-01-2021 Episodic Superficial injury; contusion (20 sources) Subungual hematoma of great toe of right foot; Translations: [Contusion of right great toe with damage to nail, initial encounter] 10-21-2022 Episodic Unclassified (1 source) Thrombocytosis, unspecified; Translations: [Thrombocytosis, unspecified] Onset: 02-27-20 Unclassified (1 source) Acidosis, unspecified; Translations: [Acidosis, unspecified] Onset: 08-09-19 Past or Other Problems Problem Classification Problem Date Documented Da te Episodic/Chronic Abdominal pain (20 sources) Abdominal pain; Translations: [Unspecified abdominal pain] Onset: 08-09-2024 08-08-2020 Episodic Cancer of colon (20 sources) History of malignant neoplasm of colon; Translations: [Personal history of other malignant neoplasm of large intestine] Onset: 08-24-2024 06-11-2017 Episodic Coronary atherosclerosis and other heart disease (2 sources) History of placement of stent for coronary artery disease; Translations: [Presence of coronary angioplasty implant and graft] Onset: 06-07-2020 11-16-2022 Episodic Deficiency and other anemia (1 source) Iron deficiency anemia; Translations: [Iron deficiency anemia, unspecified] Onset: 12-06-2007 12-06-2007 Episodic Deficiency and other anemia (1 source) Anemia, unspecified; Translations: [Anemia, unspecified] Onset: 08-07-2024 Episodic Fluid and electrolyte disorders (20 sources) Hypokalemia; Translations: [Hypokalemia] Onset: 07-28-2024 11-16-2022 Episodic Gastritis and duodenitis (1 source) Acute gastritis; Translations: [Acute gastritis without bleeding] Onset: 09-21-2007 09-21-2007 Episodic Gastrointestinal hemorrhage (20 sources) Rectal hemorrhage; Translations: [Hemorrhage of anus and rectum] Onset: 08-24-2024 03-21-2024 Episodic Other gastrointestinal disorders (1 source) Diarrhea; Translations: [Diarrhea, unspecified] Onset: 04-05-2008 04-05-2008 Episodic Other gastrointestinal disorders (1 source) Angiodysplasia of colon without hemorrhage; Translations: [Angiodysplasia of colon without hemorrhage] Onset: 08-24-2024 Episodic Other lower respiratory disease (7 sources) Shortness of breath; Translations: [Shortness of breath] Onset: 05-12-2024 12-18-2022 Episodic Other lower respiratory disease (14 sources) Other forms of dyspnea; Translations: [Chronic dyspnea] Onset: 05-25-2024 04-19-2024 Episodic Other lower respiratory disease (1 source) Other nonspecific abnormal finding of lung field; Translations: [Other nonspecific abnormal finding of lung field] Onset: 06-23-2024 Episodic Results Test Name Value Interpretation Reference Range Facility PSA,Total- Diagnosticon 11-0 PSA, DIAGNOSTIC < 0.02 Normal 0.00-4.00 [facility] Comment on above: Result Comment: This test was performed using the Stupeflix tPSAmethod. Measured values of a patient??sample can varydepending on the testing procedure used. PSA valuesdetermined on patient samples by different testingprocedures cannot be used interchangeably. If there is achange in PSA assays while monitoring therapy, sequentialtesting should be performed to confirm baseline values. Performed By: #### L 501.9940 ####[facility] [address] [place], [address] CBC W/Diff, Automatedon 10-2 8-2024 Absolute Lymph 1.25 X10 3/uL Normal 0.83-4.51 [facility] Comment on above: Performed By: #### L 100.0100 ####[facility] [address] [place], [address] Absolute Neut 10.1 X10 3/uL High 2.0-7.7 [facility] Comment on above: Performed By: #### L 100.0100 ####[facility] [address] [place], [address] Basophils/100 WBC (Bld) 0.7 % Normal 0-1 [facility] Comment on above: Performed By: #### L 100.0100 ####[facility] [address] [place], [address] Eosinophils/100 WBC (Bld) 1.9 % Normal 0-5 [facility] Comment on above: Performed By: #### L 100.0100 ####[facility] [address] [place], [address] Erythrocyte distribution width (RBC) [Ratio] 14.6 % Normal 11.6-14.6 [facility] Comment on above: Performed By: #### L 100.0100 ####[facility] [address] [place], [address] Hematocrit (Bld) [Volume fraction] 34.7 % Low 40-54 [facility] Comment on above: Performed By: #### L 100.0100 ####[facility] [address] [place], [address] Hemoglobin (Bld) [Mass/Vol] 11.6 g/dL Low 13.0-16.5 [facility] Comment on above: Performed By: #### L 100.0100 ####[facility] [address] [place], [address] IG% 0.600 Normal 0.0-0.9 [facility] Comment on above: Result Comment: IG% - Immature Granulocytes (promyelocytes, myelocytes andmetamyelocytes) > 1% indicates that a LEFT SHIFT is Present. Performed By: #### L 100.0100 ####[facility] [address] [place], [address] Lymphocytes/100 WBC (Bld) 9.8 % Low 19-41 [facility] Comment on above: Performed By: #### L 100.0100 ####[facility] [address] [place], [address] MCH (RBC) [Entitic mass] 29.7 pg Normal 27.0-32.0 [facility] Comment on above: Performed By: #### L 100.0100 ####[facility] [address] [place], [address] MCHC (RBC) [Mass/Vol] 33.4 g/dL Normal 32-36 [facility] Comment on above: Performed By: #### L 100.0100 ####[facility] [address] [place], [address] MCV (RBC) [Entitic vol] 89.0 fL Normal 80-94 [facility] Comment on above: Performed By: #### L 100.0100 ####[facility] [address] [place], [address] Monocytes/100 WBC (Bld) 7.9 % Normal 0-10 [facility] Comment on above: Performed By: #### L 100.0100 ####[facility] [address] [place], [address] Neutrophils/100 WBC (Bld) 79.1 % High 47-70 [facility] Comment on above: Performed By: #### L 100.0100 ####[facility] [address] [place], [address] Nucleated RBC (Bld) [#/Vol] 0 10*3/uL Normal 0-5 [facility] Comment on above: Performed By: #### L 100.0100 ####[facility] [address] [place], [address] Platelet mean volume (Bld) [Entitic vol] 8.6 fL Normal 6.2-12.0 [facility] Comment on above: Performed By: #### L 100.0100 ####[facility] [address] [place], [address] Platelets (Bld) [#/Vol] 651 10*3/uL High 150-450 [facility] Comment on above: Performed By: #### L 100.0100 ####[facility] [address] [place], [address] RBC (Bld) [#/Vol] 3.90 10*6/uL Low 4.6-6.2 [facility] Comment on above: Performed By: #### L 100.0100 ####[facility] [address] [place], [address] RDW SD 48.1 fl High 35.1-43.9 [facility] Comment on above: Performed By: #### L 100.0100 ####[facility] [address] [place], [address] WBC (Bld) [#/Vol] 12.7 10*3/uL High 4.4-11.0 [facility] Comment on above: Performed By: #### L 100.0100 ####[facility] [address] [place], [address] Oncology Visit Reporton 02-01 Oncology Visit Report Normal [facility] CBC W/Diff, Automatedon 02-01 PATH REV Reviewed Normal [facility] Comment on above: Result Comment: MILD LEUKOCYTOSIS WITH NEUTROPHILIA LYMPHOPENIA.NORMOCYTIC ANEMIA WITH ANISOCYTOSIS.MODERATE THROMBOCYTOSIS.Jessica Juan, DO 02/21/2025 AMENDED REPORT 02/22/25 0836 PATH REV previously reported as: August carroll Performed By: #### L 100.0100, L501.9940, L500.4050, L101.9900, L501.6710 ####[facility] [address] [place], [place], [id number] CBC W/Diff, Automatedon 02-01 PLT EST MOD INC Normal ADEQ [facility] Comment on above: Performed By: #### L 100.0100 ####[facility] [address] [place], [place], [id number] PSA,Total- Diagnosticon 02-01 PSA, DIAGNOSTIC < 0.02 Normal 0.00-4.00 [facility] Comment on above: Order Comment: PSAD ADDED ON BY MANDI AT 1335 ON 02/21/2025 Result Comment: This test was performed using the [employer] tPSAmethod. Measured values of a patient??sample can varydepending on the testing procedure used. PSA valuesdetermined on patient samples by different testingprocedures cannot be used interchangeably. If there is achange in PSA assays while monitoring therapy, sequentialtesting should be performed to confirm baseline values. Performed By: #### L 100.0100, L501.9940, L500.4050, L101.9900, L501.6710 ####[facility] [address] [place], [address] CRPon 02-20-2025 C-REACTIVE PROT 88.90 mg/L High 0.0-3.0 [facility] Comment on above: Performed By: #### L 100.0100, L501.9940, L500.4050, L101.9900, L501.6710 ####[facility] [address] [place], [address] Comprehensive Metabolic Prof ilon 02-20-2025 Albumin [Mass/Vol] 3.5 g/dL Normal 3.4-4.8 [facility] Comment on above: Performed By: #### L 100.0100, L501.9940, L500.4050, L101.9900, L501.6710 ####[facility] [address] [place], [address] Albumin/Globulin [Mass ratio] 1.2 {ratio} Normal 0.9-2.4 [facility] Comment on above: Performed By: #### L 100.0100, L501.9940, L500.4050, L101.9900, L501.6710 ####[facility] [address] [place], [address] ALK PHOS 66 U/L Normal 40-129 [facility] Comment on above: Performed By: #### L 100.0100, L501.9940, L500.4050, L101.9900, L501.6710 ####[facility] [address] [place], [address] ALT [Catalytic activity/Vol] 7 U/L Normal <=46 [facility] Comment on above: Performed By: #### L 100.0100, L501.9940, L500.4050, L101.9900, L501.6710 ####[facility] [address] [place], [address] AST [Catalytic activity/Vol] 11 U/L Normal <=37 [facility] Comment on above: Performed By: #### L 100.0100, L501.9940, L500.4050, L101.9900, L501.6710 ####[facility] [address] [place], [address] Bilirubin [Mass/Vol] 0.43 mg/dL Normal 0.00-1.30 [facility] Comment on above: Performed By: #### L 100.0100, L501.9940, L500.4050, L101.9900, L501.6710 ####[facility] [address] [place], [address] BUN/CRE 16.2 RATIO Normal 10-20 [facility] Comment on above: Performed By: #### L 100.0100, L501.9940, L500.4050, L101.9900, L501.6710 ####[facility] [address] [place], [address] Calcium [Mass/Vol] 9.9 mg/dL Normal 7.6-11.0 [facility] Comment on above: Performed By: #### L 100.0100, L501.9940, L500.4050, L101.9900, L501.6710 ####[facility] [address] [place], [address] Chloride [Moles/Vol] 97 mmol/L Low 98-108 [facility] Comment on above: Performed By: #### L 100.0100, L501.9940, L500.4050, L101.9900, L501.6710 ####[facility] [address] [place], [address] CO2 [Moles/Vol] 27.6 mmol/L Normal 21.0-32.0 [facility] Comment on above: Performed By: #### L 100.0100, L501.9940, L500.4050, L101.9900, L501.6710 ####[facility] [address] [place], [address] Creatinine [Mass/Vol] 1.74 mg/dL High 0.70-1.20 [facility] Comment on above: Performed By: #### L 100.0100, L501.9940, L500.4050, L101.9900, L501.6710 ####[facility] [address] [place], [address] GAP 13 Normal 5-15 [facility] Comment on above: Performed By: #### L 100.0100, L501.9940, L500.4050, L101.9900, L501.6710 ####[facility] [address] [place], [address] GFR/1.73 sq M.predicted among non-blacks MDRD (S/P/Bld) [Vol rate/Area] 39 mL/min/{1.73_m2} Low >60 [facility] Comment on above: Result Comment: mL/m in/1.73m2 CKD-EPI Creatinine Equation (2020) Performed By: #### L 100.0100, L501.9940, L500.4050, L101.9900, L501.6710 ####[facility] [address] [place], [address] Globulin (S) [Mass/Vol] 2.9 g/dL Normal 2.2-4.2 [facility] Comment on above: Performed By: #### L 100.0100, L501.9940, L500.4050, L101.9900, L501.6710 ####[facility] [address] [place], [address] Glucose [Mass/Vol] 119 mg/dL High 70-99 [facility] Comment on above: Performed By: #### L 100.0100, L501.9940, L500.4050, L101.9900, L501.6710 ####[facility] [address] [place], [address] Potassium [Moles/Vol] 3.1 mmol/L Low 3.3-5.1 [facility] Comment on above: Performed By: #### L 100.0100, L501.9940, L500.4050, L101.9900, L501.6710 ####[facility] [address] [place], [address] Sodium [Moles/Vol] 138 mmol/L Normal 133-145 [facility] Comment on above: Performed By: #### L 100.0100, L501.9940, L500.4050, L101.9900, L501.6710 ####[facility] [address] [place], [address] T PROT 6.4 g/dL Normal 5.9-8.4 [facility] Comment on above: Performed By: #### L 100.0100, L501.9940, L500.4050, L101.9900, L501.6710 ####[facility] [address] [place], [address] Urea nitrogen [Mass/Vol] 28 mg/dL High 4-19 [facility] Comment on above: Performed By: #### L 100.0100, L501.9940, L500.4050, L101.9900, L501.6710 ####[facility] [address] [place], [address] Erythrocyte Sed Rateon 02-20 SED RATE 19 mm/hr Normal 0-20 [facility] Comment on above: Performed By: #### L 100.0100, L501.9940, L500.4050, L101.9900, L501.6710 ####[facility] [address] [place], [address] SIMI Comprehensive Panelon ANTI-DNA (DS)AB <1 Normal 0-9 [facility] Comment on above: Result Comment: Nega tive <5 Equivocal 5 - 9 Positive >9 Performed By: #### L 4600.0100, L505.7010, L500.4050, L101.9900, L100.0100, L3100.5440, L501.6710 ####[facility] [address] [place], [place], [phone]) ANTI-SS-A < 0.2 Normal 0.0-0.9 [facility] Comment on above: Performed By: #### L 4600.0100, L505.7010, L500.4050, L101.9900, L100.0100, L3100.5440, L501.6710 ####[facility] [address] [place], [place], [phone] ANTI-SS-B < 0.2 Normal 0.0-0.9 [facility] Comment on above: Performed By: #### L 4600.0100, L505.7010, L500.4050, L101.9900, L100.0100, L3100.5440, L501.6710 ####[facility] [address] [place], [address] CCP IgG Antibodieson 025 CCP IgG Ab. 7 units Normal 0-19 [facility] Comment on above: Result Comment: Nega tive <20 Weak positive 20 - 39 Moderate positive 40 - 59 Strong positive >59Performed at: [facility] [address] [id number] Director: Piotr Luo PhD, Phone: [phone] Performed By: #### L 4600.0100, L505.7010, L500.4050, L101.9900, L100.0100, L3100.5440, L501.6710 ####[facility] [address] [place], [place], [phone] Absolute lymphocyte countOrd ered By: Addy Luciano on 01-12-2025 Lymphocytes Auto (Unsp spec) [#/Vol] 1.12 10*3/uL 0.83-4.51 [facility] Absolute neutrophil countOrd ered By: [facility] on 01-12-2025 Neutrophils (Bld) [#/Vol] 8.3 10*3/uL High 2.0-7.7 [facility] Anion gap in Serum or Plasma Ordered By: [facility] on 01-12-2025 Anion gap [Moles/Vol] 13 mmol/L 5-15 [facility] Automated lymphocyte count a s percentage of total leukocytesOrdered By: [facility] on 01-12-2025 Lymphocytes/100 WBC Auto (Unsp spec) 10.6 % Low 19-41 [facility] BUN/creatinine ratioOrdered By: [facility] on 01-12-2025 Urea nitrogen/Creatinine [Mass ratio] 19.3 mg/mg 10-20 [facility] Basophil percentageOrdered B y: [facility] on 01-12-2025 Basophils/100 WBC (Bld) 0.8 % 0-1 [facility] Bilirubin, totalOrdered By: [facility] on 01-12-2025 Bilirubin [Mass/Vol] 0.65 mg/dL 0.00-1.30 [facility] CBC W/Diff, Automatedon 01-01 Absolute Lymph 1.12 X10 3/uL Normal 0.83-4.51 [facility] Comment on above: Performed By: #### L 4600.0100, L505.7010, L500.4050, L101.9900, L100.0100, L3100.5440, L501.6710 ####[facility] [address] [place], [address] Absolute Neut 8.3 X10 3/uL High 2.0-7.7 [facility] Comment on above: Performed By: #### L 4600.0100, L505.7010, L500.4050, L101.9900, L100.0100, L3100.5440, L501.6710 ####[facility] [address] [place], [address] Basophils/100 WBC (Bld) 0.8 % Normal 0-1 [facility] Comment on above: Performed By: #### L 4600.0100, L505.7010, L500.4050, L101.9900, L100.0100, L3100.5440, L501.6710 ####[facility] [address] [place], [address] Eosinophils/100 WBC (Bld) 3.4 % Normal 0-5 [facility] Comment on above: Performed By: #### L 4600.0100, L505.7010, L500.4050, L101.9900, L100.0100, L3100.5440, L501.6710 ####[facility] [address] [place], [address] Erythrocyte distribution width (RBC) [Ratio] 14.5 % Normal 11.6-14.6 [facility] Comment on above: Performed By: #### L 4600.0100, L505.7010, L500.4050, L101.9900, L100.0100, L3100.5440, L501.6710 ####[facility] [address] [place], [address] Hematocrit (Bld) [Volume fraction] 36.6 % Low 40-54 [facility] Comment on above: Performed By: #### L 4600.0100, L505.7010, L500.4050, L101.9900, L100.0100, L3100.5440, L501.6710 ####[facility] [address] [place], [address] Hemoglobin (Bld) [Mass/Vol] 12.1 g/dL Low 13.0-16.5 [facility] Comment on above: Performed By: #### L 4600.0100, L505.7010, L500.4050, L101.9900, L100.0100, L3100.5440, L501.6710 ####[facility] [address] [place], [address] IG% 0.500 Normal 0.0-0.9 [facility] Comment on above: Result Comment: IG% - Immature Granulocytes (promyelocytes, myelocytes andmetamyelocytes) > 1% indicates that a LEFT SHIFT is Present. Performed By: #### L 4600.0100, L505.7010, L500.4050, L101.9900, L100.0100, L3100.5440, L501.6710 ####[facility] [address] [place], [address] Lymphocytes/100 WBC (Bld) 10.6 % Low 19-41 [facility] Comment on above: Performed By: #### L 4600.0100, L505.7010, L500.4050, L101.9900, L100.0100, L3100.5440, L501.6710 ####[facility] [address] [place], [address] MCH (RBC) [Entitic mass] 29.1 pg Normal 27.0-32.0 [facility] Comment on above: Performed By: #### L 4600.0100, L505.7010, L500.4050, L101.9900, L100.0100, L3100.5440, L501.6710 ####[facility] [address] [place], [address] MCHC (RBC) [Mass/Vol] 33.1 g/dL Normal 32-36 [facility] Comment on above: Performed By: #### L 4600.0100, L505.7010, L500.4050, L101.9900, L100.0100, L3100.5440, L501.6710 ####[facility] [address] [place], [address] MCV (RBC) [Entitic vol] 88.0 fL Normal 80-94 [facility] Comment on above: Performed By: #### L 4600.0100, L505.7010, L500.4050, L101.9900, L100.0100, L3100.5440, L501.6710 ####[facility] [address] [place], [address] Monocytes/100 WBC (Bld) 6.1 % Normal 0-10 [facility] Comment on above: Performed By: #### L 4600.0100, L505.7010, L500.4050, L101.9900, L100.0100, L3100.5440, L501.6710 ####[facility] [address] [place], [address] Neutrophils/100 WBC (Bld) 78.6 % High 47-70 [facility] Comment on above: Performed By: #### L 4600.0100, L505.7010, L500.4050, L101.9900, L100.0100, L3100.5440, L501.6710 ####[facility] [address] [place], [address] Nucleated RBC (Bld) [#/Vol] 0 10*3/uL Normal 0-5 [facility] Comment on above: Performed By: #### L 4600.0100, L505.7010, L500.4050, L101.9900, L100.0100, L3100.5440, L501.6710 ####[facility] [address] [place], [address] Platelet mean volume (Bld) [Entitic vol] 9.3 fL Normal 6.2-12.0 [facility] Comment on above: Performed By: #### L 4600.0100, L505.7010, L500.4050, L101.9900, L100.0100, L3100.5440, L501.6710 ####[facility] [address] [place], [address] Platelets (Bld) [#/Vol] 407 10*3/uL Normal 150-450 [facility] Comment on above: Performed By: #### L 4600.0100, L505.7010, L500.4050, L101.9900, L100.0100, L3100.5440, L501.6710 ####[facility] [address] [place], [address] RBC (Bld) [#/Vol] 4.16 10*6/uL Low 4.6-6.2 [facility] Comment on above: Performed By: #### L 4600.0100, L505.7010, L500.4050, L101.9900, L100.0100, L3100.5440, L501.6710 ####[facility] [address] [place], [address] RDW SD 45.7 fl High 35.1-43.9 [facility] Comment on above: Performed By: #### L 4600.0100, L505.7010, L500.4050, L101.9900, L100.0100, L3100.5440, L501.6710 ####[facility] [address] [place], [address] WBC (Bld) [#/Vol] 10.6 10*3/uL Normal 4.4-11.0 [facility] Comment on above: Performed By: #### L 4600.0100, L505.7010, L500.4050, L101.9900, L100.0100, L3100.5440, L501.6710 ####[facility] [address] [place], [address] CRPon 01-12-2025 C-REACTIVE PROT 91.10 mg/L High 0.0-3.0 [facility] Comment on above: Performed By: #### L 4600.0100, L505.7010, L500.4050, L101.9900, L100.0100, L3100.5440, L501.6710 ####[facility] [address] [place], [address] Carbon dioxide, total [Moles /volume] in Central venous bloodOrdered By: Addy Luciano on 01-12-2025 CO2 [Moles/Vol] 21.1 mmol/L 21.0-32.0 [facility] Chloride assayOrdered By: Javier Luciano on 01-12-2025 Chloride [Moles/Vol] 105 mmol/L 98-108 [facility] Comprehensive Metabolic Prof ilon 01-12-2025 Albumin [Mass/Vol] 3.7 g/dL Normal 3.4-4.8 [facility] Comment on above: Performed By: #### L 4600.0100, L505.7010, L500.4050, L101.9900, L100.0100, L3100.5440, L501.6710 ####[facility] [address] [place], [address] Albumin/Globulin [Mass ratio] 1.4 {ratio} Normal 0.9-2.4 [facility] Comment on above: Performed By: #### L 4600.0100, L505.7010, L500.4050, L101.9900, L100.0100, L3100.5440, L501.6710 ####[facility] [address] [place], [address] ALK PHOS 91 U/L Normal 40-129 [facility] Comment on above: Performed By: #### L 4600.0100, L505.7010, L500.4050, L101.9900, L100.0100, L3100.5440, L501.6710 ####[facility] [address] [place], [address] ALT [Catalytic activity/Vol] 7 U/L Normal <=46 [facility] Comment on above: Performed By: #### L 4600.0100, L505.7010, L500.4050, L101.9900, L100.0100, L3100.5440, L501.6710 ####[facility] [address] [place], [address] AST [Catalytic activity/Vol] 11 U/L Normal <=37 [facility] Comment on above: Performed By: #### L 4600.0100, L505.7010, L500.4050, L101.9900, L100.0100, L3100.5440, L501.6710 ####[facility] [address] [place], [address] Bilirubin [Mass/Vol] 0.65 mg/dL Normal 0.00-1.30 [facility] Comment on above: Performed By: #### L 4600.0100, L505.7010, L500.4050, L101.9900, L100.0100, L3100.5440, L501.6710 ####[facility] [address] [place], [address] BUN/CRE 19.3 RATIO Normal 10-20 [facility] Comment on above: Performed By: #### L 4600.0100, L505.7010, L500.4050, L101.9900, L100.0100, L3100.5440, L501.6710 ####[facility] [address] [place], [address] Calcium [Mass/Vol] 9.5 mg/dL Normal 7.6-11.0 [facility] Comment on above: Performed By: #### L 4600.0100, L505.7010, L500.4050, L101.9900, L100.0100, L3100.5440, L501.6710 ####[facility] [address] [place], [address] Chloride [Moles/Vol] 105 mmol/L Normal 98-108 [facility] Comment on above: Performed By: #### L 4600.0100, L505.7010, L500.4050, L101.9900, L100.0100, L3100.5440, L501.6710 ####[facility] [address] [place], [address] CO2 [Moles/Vol] 21.1 mmol/L Normal 21.0-32.0 [facility] Comment on above: Performed By: #### L 4600.0100, L505.7010, L500.4050, L101.9900, L100.0100, L3100.5440, L501.6710 ####[facility] [address] [place], [place], [phone]) Creatinine [Mass/Vol] 1.20 mg/dL Normal 0.70-1.20 [facility] Comment on above: Performed By: #### L 4600.0100, L505.7010, L500.4050, L101.9900, L100.0100, L3100.5440, L501.6710 ####[facility] [address] [place], [place], [id number] GAP 13 Normal 5-15 [facility] Comment on above: Performed By: #### L 4600.0100, L505.7010, L500.4050, L101.9900, L100.0100, L3100.5440, L501.6710 ####[facility] [address] [place], [address] GFR/1.73 sq M.predicted among non-blacks MDRD (S/P/Bld) [Vol rate/Area] 61 mL/min/{1.73_m2} Normal >60 [facility] Comment on above: Result Comment: mL/m in/1.73m2 CKD-EPI Creatinine Equation (2020) Performed By: #### L 4600.0100, L505.7010, L500.4050, L101.9900, L100.0100, L3100.5440, L501.6710 ####[facility] [address] [place], [address] Globulin (S) [Mass/Vol] 2.6 g/dL Normal 2.2-4.2 [facility] Comment on above: Performed By: #### L 4600.0100, L505.7010, L500.4050, L101.9900, L100.0100, L3100.5440, L501.6710 ####[facility] [address] [place], [address] Glucose [Mass/Vol] 120 mg/dL High 70-99 [facility] Comment on above: Performed By: #### L 4600.0100, L505.7010, L500.4050, L101.9900, L100.0100, L3100.5440, L501.6710 ####[facility] [address] [place], [address] Potassium [Moles/Vol] 3.8 mmol/L Normal 3.3-5.1 [facility] Comment on above: Performed By: #### L 4600.0100, L505.7010, L500.4050, L101.9900, L100.0100, L3100.5440, L501.6710 ####[facility] [address] [place], [address] Sodium [Moles/Vol] 139 mmol/L Normal 133-145 [facility] Comment on above: Performed By: #### L 4600.0100, L505.7010, L500.4050, L101.9900, L100.0100, L3100.5440, L501.6710 ####[facility] [address] [place], [place], [id number] T PROT 6.3 g/dL Normal 5.9-8.4 [facility] Comment on above: Performed By: #### L 4600.0100, L505.7010, L500.4050, L101.9900, L100.0100, L3100.5440, L501.6710 ####[facility] [address] [place], [address] Urea nitrogen [Mass/Vol] 23 mg/dL High 4-19 [facility] Comment on above: Performed By: #### L 4600.0100, L505.7010, L500.4050, L101.9900, L100.0100, L3100.5440, L501.6710 ####[facility] [address] [place], [place], [id number] Eosinophil percentageOrdered By: Zebulun Beam on 01-12-2025 Eosinophils/100 WBC (Bld) 3.4 % 0-5 [facility] [facility] Erythrocyte Sed Rateon 01-12 SED RATE 31 mm/hr High 0-20 [facility] Comment on above: Performed By: #### L 4600.0100, L505.7010, L500.4050, L101.9900, L100.0100, L3100.5440, L501.6710 ####[facility] [address] [place], [place], [id number] Erythrocyte distribution wid th ratioOrdered By: Zebulun Beam on 01-12-2025 Erythrocyte distribution width (RBC) [Ratio] 14.5 % 11.6-14.6 [facility] Erythrocyte distribution wid th standard deviationOrdered By: Zebulun Beam on 01-12-2025 Erythrocyte distribution width (RBC) [Ratio] 45.7 fl High 35.1-43.9 [facility] Erythrocyte sedimentation ra teOrdered By: Zebulun Beam on 01-12-2025 ESR (Bld) [Velocity] 31 mm/h High 0-20 [facility] Glomerular filtration rate ( GFR) estimation/1.73 sq m using serum, plasma, or whole bOrdered By: Addy Luciano on 01-12-2025 GFR/1.73 sq M.predicted among non-blacks MDRD (S/P/Bld) [Vol rate/Area] 61 mL/min/{1.73_m2} >60 [facility] Comment on above: mL/min/1.73m2 CKD-EP I Creatinine Equation (2020) Hematocrit Auto (Bld) [Volum e fraction]Ordered By: Addy Luciano on 01-12-2025 Hematocrit (Bld) [Volume fraction] 36.6 % Low 40-54 [facility] Hemoglobin measurementOrdere d By: Addy Luciano on 01-12-2025 Hemoglobin (Bld) [Mass/Vol] 12.1 g/dL Low 13.0-16.5 [facility] Immature granulocytes/100 WB C Auto (Bld)Ordered By: Addy Luciano on 01-12-2025 Immature granulocytes/100 WBC (Bld) 0.500 % 0.0-0.9 [facility] Comment on above: IG% - Immature Granu locytes (promyelocytes, myelocytes and metamyelocytes) > 1% indicates that a LEFT SHIFT is Present. Laboratory - Chemistry and C hemistry - challengeOrdered By: Addy Luciano on 01-12-2025 AST [Catalytic activity/Vol] 11 U/L <38 [facility] MCV (mean corpuscular volume ) determinationOrdered By: Addy Luciano on 01-12-2025 MCV (RBC) [Entitic vol] 88.0 fL 80-94 [facility] Mean corpuscular hemoglobin (MCH) determinationOrdered By: Addy Luciano on 01-12-2025 MCH (RBC) [Entitic mass] 29.1 pg 27.0-32.0 [facility] Mean corpuscular hemoglobin concentration (MCHC) determinationOrdered By: Addy Luciano on 01-12-2025 MCHC (RBC) [Mass/Vol] 33.1 g/dL 32-36 [facility] Mean platelet volume determi nationOrdered By: Zebulun Beam on 01-12-2025 Platelet mean volume (Bld) [Entitic vol] 9.3 fL 6.2-12.0 [facility] Monocyte percentageOrdered B y: Zebulun Beam on 01-12-2025 Monocytes/100 WBC (Bld) 6.1 % 0-10 [facility] Neutrophil percentageOrdered By: Zebulun Beam on 01-12-2025 Neutrophils/100 WBC (Bld) 78.6 % High 47-70 [facility] Nucleated red blood cell per centageOrdered By: Zebulun Beam on 01-12-2025 Nucleated RBC/100 WBC (Bld) [Ratio] 0 % 0-5 [facility] Platelet countOrdered By: Javier bergerun Beam on 01-12-2025 Platelets (Bld) [#/Vol] 407 10*3/uL 150-450 [facility] Potassium measurement (mass/ volume)Ordered By: Addy Beam on 01-12-2025 Potassium (Unsp spec) [Mass/Vol] 3.8 mmol/L 3.3-5.1 [facility] RBC Auto (Bld) [#/Vol]Ordere d By: Marcelalun Beam on 01-12-2025 RBC (Bld) [#/Vol] 4.16 10*6/uL Low 4.6-6.2 [facility] Rheumatoid Factoron 01-13-20 25 RHEUMATOID FAC 10.5 IU/mL Normal <15 [facility] Comment on above: Performed By: #### L 4600.0100, L505.7010, L500.4050, L101.9900, L100.0100, L3100.5440, L501.6710 ####[facility] [address] [place], [address] Serum DNA double strand anti body assay (units/volume)Ordered By: Addy Luciano on 01-12-2025 DNA double strand Ab Qn (S) [IU]/mL 0-9 [facility] Comment on above: Negative <5 Equivoca l 5 - 9 Positive >9 Serum Scl-70 antibody assay (units/volume)Ordered By: Addy Luciano on 01-12-2025 SCL-70 extractable nuclear Ab Qn (S) <0.2 AI 0.0-0.9 [facility] Comment on above: Previous reported re sult: TNP AIEdited by: DELGADO on 01/15/25:1608 AMENDED REPORT 01/15/25 1608 ANTISCLER previously reported as: Test not performed Serum creatinine measurement (mass/volume)Ordered By: Addy Luciano on 01-12-2025 Creatinine [Mass/Vol] 1.20 mg/dL 0.70-1.20 [facility] Serum globulin measurementOr dered By: Addy Luciano on 01-12-2025 Globulin (S) [Mass/Vol] 2.6 g/dL 2.2-4.2 [facility] Serum glucose measurement (m ass/volume)Ordered By: Addy Luciano on 01-12-2025 Glucose [Mass/Vol] 120 mg/dL High 70-99 [facility] Serum or plasma C reactive p rotein measurement (mass/volume)Ordered By: Addy Luciano on 01-12-2025 CRP [Mass/Vol] 91.10 mg/L High 0.0-3.0 [facility] Serum or plasma alanine ugalde otransferase (ALT) measurementOrdered By: Addy Luciano on 01-12-2025 ALT [Catalytic activity/Vol] 7 U/L <47 [facility] Serum or plasma albumin jenna urement (mass/volume)Ordered By: Addy Luciano on 01-12-2025 Albumin [Mass/Vol] 3.7 g/dL 3.4-4.8 [facility] Serum or plasma albumin/glob ulin mass ratioOrdered By: Marcelavan Luciano on 01-12-2025 Albumin/Globulin [Mass ratio] 1.4 {ratio} 0.9-2.4 [facility] Serum or plasma alkaline melida sphatase measurementOrdered By: Marcelavan Luciano on 01-12-2025 ALP [Catalytic activity/Vol] 91 U/L 40-129 [facility] Serum or plasma calcium jenna urement (mass/volume)Ordered By: Addy Luciano on 01-12-2025 Calcium [Mass/Vol] 9.5 mg/dL 7.6-11.0 [facility] Serum or plasma cyclic citru llinated peptide IgG antibody assay (units/volume)Ordered By: Addy Luciano on 01-12-2025 Cyclic citrullinated peptide IgG Qn 7 units 0-19 [facility] Comment on above: Negative <20 Weak po sitive 20 - 39 Moderate positive 40 - 59 Strong positive >59Performed at: [facility] [address] [id number] Director: Piotr Luo PhD, Phone: [phone] Serum or plasma urea nitroge n measurement (mass/volume)Ordered By: Addy Luciano on 01-12-2025 Urea nitrogen [Mass/Vol] 23 mg/dL High 4-19 [facility] Serum rheumatoid factor dete ctionOrdered By: Addy Luciano on 01-12-2025 Rheumatoid factor Ql (S) 10.5 IU/mL <15 [facility] Sodium levelOrdered By: Marcela Luciano on 01-12-2025 Sodium [Moles/Vol] 139 mmol/L 133-145 [facility] Total proteinOrdered By: Dharmesh ulwillie Luciano on 01-12-2025 Protein [Mass/Vol] 6.3 g/dL 5.9-8.4 [facility] White blood cell (WBC) count Ordered By: Addy Luciano on 01-12-2025 WBC (Bld) [#/Vol] 10.6 10*3/uL 4.4-11.0 [facility] Urgent Care Visit Reporton 0 01-08-2025 Urgent Care Visit Report Normal [facility] Emergency Department Summary on 01-07-2025 Emergency Department Summary Normal [facility] Pulmonary Visit Reporton Pulmonary Visit Report Normal [facility] Chest without Contraston Chest without Contrast Normal [facility] PSA,Total- Diagnosticon 05 PSA, DIAGNOSTIC < 0.02 Normal 0.00-4.00 [facility] Comment on above: Result Comment: This test was performed using the Pee Digiscend tPSAmethod. Measured values of a patient??sample can varydepending on the testing procedure used. PSA valuesdetermined on patient samples by different testingprocedures cannot be used interchangeably. If there is achange in PSA assays while monitoring therapy, sequentialtesting should be performed to confirm baseline values. Performed By: #### L 501.9940 ####[facility] [address] [place], [address] Basic Metabolic Profile (BMP )on 08-12-2024 BUN Normal 4-19 [facility] Comment on above: Result Comment: Canc elled via OM: Order cancelled - Patient discharged Performed By: #### L 500.2500, L100.0100 ####[facility] [address] [place], [address] BUN/CRE Normal 10-20 [facility] Comment on above: Result Comment: Canc elled via OM: Order cancelled - Patient discharged Performed By: #### L 500.2500, L100.0100 ####[facility] [address] [place], [address] Calcium Normal 7.6-11.0 [facility] Comment on above: Result Comment: Canc elled via OM: Order cancelled - Patient discharged Performed By: #### L 500.2500, L100.0100 ####[facility] [address] [place], [address] CL Normal 98-108 [facility] Comment on above: Result Comment: Canc elled via OM: Order cancelled - Patient discharged Performed By: #### L 500.2500, L100.0100 ####[facility] [address] [place], [address] CO2 Normal 21.0-32.0 [facility] Comment on above: Result Comment: Canc elled via OM: Order cancelled - Patient discharged Performed By: #### L 500.2500, L100.0100 ####[facility] [address] [place], [address] CREAT,SERUM Normal 0.70-1.20 [facility] Comment on above: Result Comment: Canc elled via OM: Order cancelled - Patient discharged Performed By: #### L 500.2500, L100.0100 ####[facility] [address] [place], [address] eGFR Normal >60 [facility] Comment on above: Result Comment: Canc elled via OM: Order cancelled - Patient discharged Performed By: #### L 500.2500, L100.0100 ####[facility] [address] [place], [address] GAP Normal 5-15 [facility] Comment on above: Result Comment: Canc elled via OM: Order cancelled - Patient discharged Performed By: #### L 500.2500, L100.0100 ####[facility] [address] [place], [address] GLU Normal 70-99 [facility] Comment on above: Result Comment: Canc elled via OM: Order cancelled - Patient discharged Performed By: #### L 500.2500, L100.0100 ####[facility] [address] [place], [address] Potassium Normal 3.3-5.1 [facility] Comment on above: Result Comment: Canc elled via OM: Order cancelled - Patient discharged Performed By: #### L 500.2500, L100.0100 ####[facility] [address] [place], [address] Basic Metabolic Profile (BMP) Normal 133-145 [facility] Comment on above: Result Comment: Canc elled via OM: Order cancelled - Patient discharged Performed By: #### L 500.2500, L100.0100 ####[facility] [address] [place], [address] CBC W/Diff, Automatedon 04- Absolute Neut Normal 2.0-7.7 [facility] Comment on above: Result Comment: Canc elled via OM: Order cancelled - Patient discharged Performed By: #### L 500.2500, L100.0100 ####[facility] [address] [place], [address] HCT Normal 40-54 [facility] Comment on above: Result Comment: Canc elled via OM: Order cancelled - Patient discharged Performed By: #### L 500.2500, L100.0100 ####[facility] [address] [place], [address] HGB Normal 13.0-16.5 [facility] Comment on above: Result Comment: Canc elled via OM: Order cancelled - Patient discharged Performed By: #### L 500.2500, L100.0100 ####[facility] [address] [place], [address] MCH Normal 27.0-32.0 [facility] Comment on above: Result Comment: Canc elled via OM: Order cancelled - Patient discharged Performed By: #### L 500.2500, L100.0100 ####[facility] [address] [place], [address] MCHC Normal 32-36 [facility] Comment on above: Result Comment: Canc elled via OM: Order cancelled - Patient discharged Performed By: #### L 500.2500, L100.0100 ####[facility] [address] [place], [address] MCV Normal 80-94 [facility] Comment on above: Result Comment: Canc elled via OM: Order cancelled - Patient discharged Performed By: #### L 500.2500, L100.0100 ####[facility] [address] [place], [address] NEUT% Normal 47-70 [facility] Comment on above: Result Comment: Canc elled via OM: Order cancelled - Patient discharged Performed By: #### L 500.2500, L100.0100 ####[facility] [address] [place], [address] PLT Normal 150-450 [facility] Comment on above: Result Comment: Canc elled via OM: Order cancelled - Patient discharged Performed By: #### L 500.2500, L100.0100 ####[facility] [address] [place], [address] RBC Normal 4.6-6.2 [facility] Comment on above: Result Comment: Canc elled via OM: Order cancelled - Patient discharged Performed By: #### L 500.2500, L100.0100 ####[facility] [address] [place], [address] RDW CV Normal 11.6-14.6 [facility] Comment on above: Result Comment: Canc elled via OM: Order cancelled - Patient discharged Performed By: #### L 500.2500, L100.0100 ####[facility] [address] [place], [address] RDW SD Normal 35.1-43.9 [facility] Comment on above: Result Comment: Canc elled via OM: Order cancelled - Patient discharged Performed By: #### L 500.2500, L100.0100 ####[facility] [address] [place], [address] WBC Normal 4.4-11.0 [facility] Comment on above: Result Comment: Canc elled via OM: Order cancelled - Patient discharged Performed By: #### L 500.2500, L100.0100 ####[facility] [address] [place], [address] Discharge Instructionon 08-01 Discharge Instruction Normal [facility] Discharge Instruction Normal [facility] 12 Lead EKGon 08-10-2024 12 Lead EKG Normal [facility] Absolute lymphocyte countOrd ered By: Rhys Fontana on 08-10-2024 Lymphocytes Auto (Unsp spec) [#/Vol] 0.66 10*3/uL Low 0.83-4.51 [facility] Absolute neutrophil countOrd ered By: Rhys Fontana on 08-10-2024 Absolute neutrophil count 6.5 X10^3/uL 2.0-7.7 [facility] Anion gap [Moles/Vol]Ordered By: Rhys Fontana on 08-10-2024 Anion gap in Serum or Plasma 14 - [facility] Anion gap in Serum or Plasma Ordered By: Rhys Fontana on 08-10-2024 Anion gap [Moles/Vol] 14 mmol/L 09-14 [facility] Automated lymphocyte count a s percentage of total leukocytesOrdered By: Rhys Fontana on 08-10-2024 Lymphocytes/100 WBC Auto (Unsp spec) 8.1 % Low 19-41 [facility] BUN/creatinine ratioOrdered By: Rhys Fontana on 08-10-2024 Urea nitrogen/Creatinine [Mass ratio] 16.0 mg/mg - [facility] BUN/creatinine ratio 16.0 [facility] Basic Metabolic Profile (BMP )on 08-10-2024 BUN/CRE 16.0 [facility] Normal - [facility] Comment on above: Performed By: #### L 100.0100, L500.2500 ####[facility] [address] [place], [address] Calcium [Mass/Vol] 9.7 mg/dL Normal 7.6-11.0 [facility] Comment on above: Performed By: #### L 100.0100, L500.2500 ####[facility] [address] [place], [address] Chloride [Moles/Vol] 107 mmol/L Normal 98-108 [facility] Comment on above: Performed By: #### L 100.0100, L500.2500 ####[facility] [address] [place], [address] CO2 [Moles/Vol] 19.5 mmol/L Low 21.0-32.0 [facility] Comment on above: Performed By: #### L 100.0100, L500.2500 ####[facility] [address] [place], [address] Creatinine [Mass/Vol] 1.27 mg/dL High 0.70-1.20 [facility] Comment on above: Performed By: #### L 100.0100, L500.2500 ####[facility] [address] [place], [address] ECRCL 39.96 ml/min Low 50-250 [facility] Comment on above: Performed By: #### L 100.0100, L500.2500 ####[facility] [address] [place], [address] GAP 14 Normal 5-15 [facility] Comment on above: Performed By: #### L 100.0100, L500.2500 ####[facility] [address] [place], [address] GFR/1.73 sq M.predicted among non-blacks MDRD (S/P/Bld) [Vol rate/Area] 57 mL/min/{1.73_m2} Low >60 [facility] Comment on above: Result Comment: mL/m in/1.73m2 CKD-EPI Creatinine Equation (2020) Performed By: #### L 100.0100, L500.2500 ####[facility] [address] [place], [address] Glucose [Mass/Vol] 119 mg/dL High 70-99 [facility] Comment on above: Performed By: #### L 100.0100, L500.2500 ####[facility] [address] [place], [address] Potassium [Moles/Vol] 3.5 mmol/L Normal 3.3-5.1 [facility] Comment on above: Performed By: #### L 100.0100, L500.2500 ####[facility] [address] [place], [address] Sodium [Moles/Vol] 140 mmol/L Normal 133-145 [facility] Comment on above: Performed By: #### L 100.0100, L500.2500 ####[facility] [address] [place], [address] Urea nitrogen [Mass/Vol] 20 mg/dL High 4-19 [facility] Comment on above: Performed By: #### L 100.0100, L500.2500 ####[facility] [address] [place], [address] Basophil percentageOrdered B y: Rhys Fontana on 08-10-2024 Basophils/100 WBC (Bld) 1.0 % 0-1 [facility] Basophil percentage 1.0 % 0-1 [facility] CBC W/Diff, Automatedon 08-01 0-2024 Absolute Lymph 0.66 X10 3/uL Low 0.83-4.51 [facility] Comment on above: Performed By: #### L 100.0100, L500.2500 ####[facility] [address] [place], [address] Absolute Neut 6.5 X10 3/uL Normal 2.0-7.7 [facility] Comment on above: Performed By: #### L 100.0100, L500.2500 ####[facility] [address] [place], [address] Basophils/100 WBC (Bld) 1.0 % Normal 0-1 [facility] Comment on above: Performed By: #### L 100.0100, L500.2500 ####[facility] [address] [place], [address] Eosinophils/100 WBC (Bld) 4.4 % Normal 0-5 [facility] Comment on above: Performed By: #### L 100.0100, L500.2500 ####[facility] [address] [place], [address] Erythrocyte distribution width (RBC) [Ratio] 12.1 % Normal 11.6-14.6 [facility] Comment on above: Performed By: #### L 100.0100, L500.2500 ####[facility] [address] [place], [address] Hematocrit (Bld) [Volume fraction] 34.4 % Low 40-54 [facility] Comment on above: Performed By: #### L 100.0100, L500.2500 ####[facility] [address] [place], [address] Hemoglobin (Bld) [Mass/Vol] 11.7 g/dL Low 13.0-16.5 [facility] Comment on above: Performed By: #### L 100.0100, L500.2500 ####[facility] [address] [place], [address] IG% 0.200 Normal 0.0-0.9 [facility] Comment on above: Result Comment: IG% - Immature Granulocytes (promyelocytes, myelocytes andmetamyelocytes) > 1% indicates that a LEFT SHIFT is Present. Performed By: #### L 100.0100, L500.2500 ####[facility] [address] [place], [address] Lymphocytes/100 WBC (Bld) 8.1 % Low 19-41 [facility] Comment on above: Performed By: #### L 100.0100, L500.2500 ####[facility] [address] [place], [address] MCH (RBC) [Entitic mass] 32.0 pg Normal 27.0-32.0 [facility] Comment on above: Performed By: #### L 100.0100, L500.2500 ####[facility] [address] [place], [address] MCHC (RBC) [Mass/Vol] 34.0 g/dL Normal 32-36 [facility] Comment on above: Performed By: #### L 100.0100, L500.2500 ####[facility] [address] [place], [address] MCV (RBC) [Entitic vol] 94.0 fL Normal 80-94 [facility] Comment on above: Performed By: #### L 100.0100, L500.2500 ####[facility] [address] [place], [address] Monocytes/100 WBC (Bld) 6.8 % Normal 0-10 [facility] Comment on above: Performed By: #### L 100.0100, L500.2500 ####[facility] [address] [place], [address] Neutrophils/100 WBC (Bld) 79.5 % High 47-70 [facility] Comment on above: Performed By: #### L 100.0100, L500.2500 ####[facility] [address] [place], [address] Nucleated RBC (Bld) [#/Vol] 0 10*3/uL Normal 0-5 [facility] Comment on above: Performed By: #### L 100.0100, L500.2500 ####[facility] [address] [place], [address] Platelet mean volume (Bld) [Entitic vol] 10.4 fL Normal 6.2-12.0 [facility] Comment on above: Performed By: #### L 100.0100, L500.2500 ####[facility] [address] [place], [address] Platelets (Bld) [#/Vol] 330 10*3/uL Normal 150-450 [facility] Comment on above: Performed By: #### L 100.0100, L500.2500 ####[facility] [address] [place], [address] RBC (Bld) [#/Vol] 3.66 10*6/uL Low 4.6-6.2 [facility] Comment on above: Performed By: #### L 100.0100, L500.2500 ####[facility] [address] [place], [address] RDW SD 42.0 fl Normal 35.1-43.9 [facility] Comment on above: Performed By: #### L 100.0100, L500.2500 ####[facility] [address] [place], [address] WBC (Bld) [#/Vol] 8.2 10*3/uL Normal 4.4-11.0 [facility] Comment on above: Performed By: #### L 100.0100, L500.2500 ####[facility] [address] [place], [address] Calcium [Mass/Vol]Ordered By : Rhys Fontana on 08-10-2024 Serum or plasma calcium measurement (mass/volume) 9.7 mg/dL 7.6-11.0 [facility] Carbon dioxide, total [Moles /volume] in Central venous bloodOrdered By: Rhys Fontana on 08-10-2024 CO2 [Moles/Vol] 19.5 mmol/L Low 21.0-32.0 [facility] Carbon dioxide, total [Moles/volume] in Central venous blood 19.5 mmol/L Low 21.0-32.0 [facility] Chloride assayOrdered By: Jasmyne Fontana on 08-10-2024 Chloride [Moles/Vol] 107 mmol/L 98-108 [facility] Chloride assay 107 mmol/L 98-108 [facility] Colonoscopy Reporton 025 Colonoscopy Report Normal [facility] Creatinine [Mass/Vol]Ordered By: Rhys Fontana on 08-10-2024 Serum creatinine measurement (mass/volume) 1.27 mg/dL High 0.70-1.20 [facility] Electrocardiogram reportOrde red By: Christiano Steinberg on 08-10-2024 EKG study [facility] Work Phone: [phone] Eosinophil percentageOrdered By: Rhys Fontana on 08-10-2024 Eosinophils/100 WBC (Bld) 4.4 % 0-5 [facility] Eosinophil percentage 4.4 % 0-5 [facility] Erythrocyte distribution wid th (RBC) [Ratio]Ordered By: Rhys Fontana on 08-10-2024 Erythrocyte distribution width ratio 12.1 % 11.6-14.6 [facility] Erythrocyte distribution width standard deviation 42.0 fl 35.1-43.9 [facility] Erythrocyte distribution wid th ratioOrdered By: Rhys Fontana on 08-10-2024 Erythrocyte distribution width (RBC) [Ratio] 12.1 % 11.6-14.6 [facility] Erythrocyte distribution wid th standard deviationOrdered By: Rhys Fontana on 08-10-2024 Erythrocyte distribution width (RBC) [Ratio] 42.0 fl 35.1-43.9 [facility] Estimation of creatinine terry aranceOrdered By: Rhys Fontana on 08-10-2024 Estimation of creatinine clearance 39.96 ml/min Low 50-250 [facility] GFR/1.73 sq M.predicted giorgi g non-blacks MDRD (S/P/Bld) [Vol rate/Area]Ordered By: Rhys Fontana on 08-10-2024 Glomerular filtration rate (GFR) estimation/1.73 sq m using serum, plasma, or whole b 57 Low >60 [facility] Glomerular filtration rate ( GFR) estimation/1.73 sq m using serum, plasma, or whole bOrdered By: Rhys Fontana on 08-10-2024 GFR/1.73 sq M.predicted among non-blacks MDRD (S/P/Bld) [Vol rate/Area] 57 mL/min/{1.73_m2} Low >60 [facility] Glucose [Mass/Vol]Ordered By : Rhys Fontana on 08-10-2024 Serum glucose measurement (mass/volume) 119 mg/dL High 70-99 [facility] Hematocrit Auto (Bld) [Volum e fraction]Ordered By: Rhys Fontana on 08-10-2024 Hematocrit (Bld) [Volume fraction] 34.4 % Low 40-54 [facility] Automated blood hematocrit (percentage) 34.4 % Low 40-54 [facility] Hemoglobin measurementOrdere d By: Rhys Fontana on 08-10-2024 Hemoglobin (Bld) [Mass/Vol] 11.7 g/dL Low 13.0-16.5 [facility] Hemoglobin measurement 11.7 g/dL Low 13.0-16.5 [facility] Immature granulocytes/100 WB C Auto (Bld)Ordered By: Rhys Fontana on 08-10-2024 Immature granulocytes/100 WBC (Bld) 0.200 % 0.0-0.9 [facility] Automated immature granulocyte percentage 0.200 % 0.0-0.9 [facility] Lymphocytes Auto (Unsp spec) [#/Vol]Ordered By: Rhys Fontana on 08-10-2024 Absolute lymphocyte count 0.66 X10^3/uL Low 0.83-4.51 [facility] Lymphocytes/100 WBC Auto (Un sp spec)Ordered By: Rhys Fontana on 08-10-2024 Automated lymphocyte count as percentage of total leukocytes 8.1 % Low 19-41 [facility] MCV (RBC) [Entitic vol]Order ed By: Rhys Fontana on 08-10-2024 MCV (mean corpuscular volume) determination 94.0 fL 80-94 [facility] MCV (mean corpuscular volume ) determinationOrdered By: Rhys Fontana on 08-10-2024 MCV (RBC) [Entitic vol] 94.0 fL 80-94 [facility] MR/POSTOP.ANEon 08-10-2024 MR/POSTOP.ANE Normal [facility] MR/BOBABPJF7jr 08-10-2024 MR/POSTOPAN2 Normal [facility] Mean corpuscular hemoglobin (MCH) determinationOrdered By: Rhys Fontana on 08-10-2024 MCH (RBC) [Entitic mass] 32.0 pg 27.0-32.0 [facility] Mean corpuscular hemoglobin (MCH) determination 32.0 pg 27.0-32.0 [facility] Mean corpuscular hemoglobin concentration (MCHC) determinationOrdered By: Rhys Fontana on 08-10-2024 Mean corpuscular hemoglobin concentration (MCHC) determination 34.0 g/dL 32-36 [facility] Mean platelet volume determi nationOrdered By: Rhys Fontana on 08-10-2024 Mean platelet volume determination 10.4 fl 6.2-12.0 [facility] Monocyte percentageOrdered B y: Rhys Fontana on 08-10-2024 Monocytes/100 WBC (Bld) 6.8 % 0-10 [facility] Monocyte percentage 6.8 % 0-10 [facility] Neutrophil percentageOrdered By: Rhys Fontana on 08-10-2024 Neutrophils/100 WBC (Bld) 79.5 % High 47-70 [facility] Neutrophil percentage 79.5 % High 47-70 [facility] Nucleated red blood cell per centageOrdered By: Rhys Fontana on 08-10-2024 Nucleated red blood cell percentage 0 % 0-5 [facility] Platelet countOrdered By: Jasmyne Fontana on 08-10-2024 Platelets (Bld) [#/Vol] 330 10*3/uL 150-450 [facility] Platelet count 330 K/mm3 150-450 [facility] Potassium (Unsp spec) [Mass/ Vol]Ordered By: Rhys Fontana on 08-10-2024 Potassium measurement (mass/volume) 3.5 mmol/L 3.3-5.1 [facility] Potassium measurement (mass/ volume)Ordered By: Rhys Fontana on 08-10-2024 Potassium (Unsp spec) [Mass/Vol] 3.5 mmol/L 3.3-5.1 [facility] RBC Auto (Bld) [#/Vol]Ordere d By: Rhys Fontana on 08-10-2024 RBC (Bld) [#/Vol] 3.66 10*6/uL Low 4.6-6.2 [facility] Automated blood erythrocyte count 3.66 M/mm3 Low 4.6-6.2 [facility] Serum creatinine measurement (mass/volume)Ordered By: Rhys Fontana on 08-10-2024 Creatinine [Mass/Vol] 1.27 mg/dL High 0.70-1.20 [facility] Serum glucose measurement (m ass/volume)Ordered By: Rhys Fontana on 08-10-2024 Glucose [Mass/Vol] 119 mg/dL High 70-99 [facility] Serum or plasma calcium jenna urement (mass/volume)Ordered By: Rhys Fontana on 08-10-2024 Calcium [Mass/Vol] 9.7 mg/dL 7.6-11.0 [facility] Serum or plasma urea nitroge n measurement (mass/volume)Ordered By: Rhys Fontana on 08-10-2024 Urea nitrogen [Mass/Vol] 20 mg/dL High 08-19 [facility] Sodium levelOrdered By: Ivan Fontana on 08-10-2024 Sodium [Moles/Vol] 140 mmol/L 133-145 [facility] Sodium level 140 mmol/L 133-145 [facility] Surgery Specimen Level Vinayak 08-10-2024 Surgery Specimen Level IV Normal [facility] Comment on above: Performed By: #### P SUIV ####[facility] [address] [place], [place], [address] Urea nitrogen [Mass/Vol]Orde red By: Rhys Fontana on 08-10-2024 Serum or plasma urea nitrogen measurement (mass/volume) 20 mg/dL High 08-19 [facility] White blood cell (WBC) count Ordered By: Rhys Fontana on 08-10-2024 WBC (Bld) [#/Vol] 8.2 10*3/uL 4.4-11.0 [facility] White blood cell (WBC) count 8.2 K/mm3 4.4-11.0 [facility] Absolute neutrophil countOrd ered By: Viral Gutiérrez on 08-09-2024 Absolute neutrophil count 5.9 X10^3/uL 2.0-7.7 [facility] Activated partial thrombopla stin time (aPTT) in platelet poor plasma by coagulation aOrdered By: Viral Gutiérrez on 08-09-2024 aPTT Coag (PPP) [Time] 26.6 s 24.1-36.2 [facility] Anion gap [Moles/Vol]Ordered By: Viral Gutiérrez on 08-09-2024 Anion gap in Serum or Plasma 12 5-15 [facility] BUN/creatinine ratioOrdered By: Viral Gutiérrez on 08-09-2024 BUN/creatinine ratio 16.9 RATIO 10-20 [facility] Basic Metabolic Profile (BMP )on 08-09-2024 BUN/CRE 16.9 RATIO Normal 10-20 [facility] Comment on above: Performed By: #### L 500.2500, L100.0100, L300.4310, BTS, L300.3900 ####[facility] [address] [place], [address] Calcium [Mass/Vol] 9.8 mg/dL Normal 7.6-11.0 [facility] Comment on above: Performed By: #### L 500.2500, L100.0100, L300.4310, BTS, L300.3900 ####[facility] [address] [place], [address] Chloride [Moles/Vol] 103 mmol/L Normal 98-108 [facility] Comment on above: Performed By: #### L 500.2500, L100.0100, L300.4310, BTS, L300.3900 ####[facility] [address] [place], [address] CO2 [Moles/Vol] 21.6 mmol/L Normal 21.0-32.0 [facility] Comment on above: Performed By: #### L 500.2500, L100.0100, L300.4310, BTS, L300.3900 ####[facility] [address] [place], [address] Creatinine [Mass/Vol] 1.44 mg/dL High 0.70-1.20 [facility] Comment on above: Performed By: #### L 500.2500, L100.0100, L300.4310, BTS, L300.3900 ####[facility] [address] [place], [address] ECRCL 34.23 ml/min Low 50-250 [facility] Comment on above: Performed By: #### L 500.2500, L100.0100, L300.4310, BTS, L300.3900 ####[facility] [address] [place], [address] GAP 12 Normal 5-15 [facility] Comment on above: Performed By: #### L 500.2500, L100.0100, L300.4310, BTS, L300.3900 ####[facility] [address] [place], [address] GFR/1.73 sq M.predicted among non-blacks MDRD (S/P/Bld) [Vol rate/Area] 49 mL/min/{1.73_m2} Low >60 [facility] Comment on above: Result Comment: mL/m in/1.73m2 CKD-EPI Creatinine Equation (2020) Performed By: #### L 500.2500, L100.0100, L300.4310, BTS, L300.3900 ####[facility] [address] [place], [address] Glucose [Mass/Vol] 106 mg/dL High 70-99 [facility] Comment on above: Performed By: #### L 500.2500, L100.0100, L300.4310, BTS, L300.3900 ####[facility] [address] [place], [address] Potassium [Moles/Vol] 3.6 mmol/L Normal 3.3-5.1 [facility] Comment on above: Performed By: #### L 500.2500, L100.0100, L300.4310, BTS, L300.3900 ####[facility] [address] [place], [address] Sodium [Moles/Vol] 136 mmol/L Normal 133-145 [facility] Comment on above: Performed By: #### L 500.2500, L100.0100, L300.4310, BTS, L300.3900 ####[facility] [address] [place], [address] Urea nitrogen [Mass/Vol] 24 mg/dL High 4-19 [facility] Comment on above: Performed By: #### L 500.2500, L100.0100, L300.4310, BTS, L300.3900 ####[facility] [address] [place], [address] Basophil percentageOrdered B y: Viral Gutiérrez on 08-09-2024 Basophil percentage 0.9 % 0-1 [facility] CBC W/Diff, Automatedon Absolute Lymph 0.90 X10 3/uL Normal 0.83-4.51 [facility] Comment on above: Performed By: #### L 500.2500, L100.0100, L300.4310, BTS, L300.3900 ####[facility] [address] [place], [address] Absolute Neut 5.9 X10 3/uL Normal 2.0-7.7 [facility] Comment on above: Performed By: #### L 500.2500, L100.0100, L300.4310, BTS, L300.3900 ####[facility] [address] [place], [address] Basophils/100 WBC (Bld) 0.9 % Normal 0-1 [facility] Comment on above: Performed By: #### L 500.2500, L100.0100, L300.4310, BTS, L300.3900 ####[facility] [address] [place], [address] Eosinophils/100 WBC (Bld) 4.8 % Normal 0-5 [facility] Comment on above: Performed By: #### L 500.2500, L100.0100, L300.4310, BTS, L300.3900 ####[facility] [address] [place], [address] Erythrocyte distribution width (RBC) [Ratio] 12.1 % Normal 11.6-14.6 [facility] Comment on above: Performed By: #### L 500.2500, L100.0100, L300.4310, BTS, L300.3900 ####[facility] [address] [place], [address] Hematocrit (Bld) [Volume fraction] 37.9 % Low 40-54 [facility] Comment on above: Performed By: #### L 500.2500, L100.0100, L300.4310, BTS, L300.3900 ####[facility] [address] [place], [address] Hemoglobin (Bld) [Mass/Vol] 12.9 g/dL Low 13.0-16.5 [facility] Comment on above: Performed By: #### L 500.2500, L100.0100, L300.4310, BTS, L300.3900 ####[facility] [address] [place], [address] IG% 0.400 Normal 0.0-0.9 [facility] Comment on above: Result Comment: IG% - Immature Granulocytes (promyelocytes, myelocytes andmetamyelocytes) > 1% indicates that a LEFT SHIFT is Present. Performed By: #### L 500.2500, L100.0100, L300.4310, BTS, L300.3900 ####[facility] [address] [place], [address] Lymphocytes/100 WBC (Bld) 11.4 % Low 19-41 [facility] Comment on above: Performed By: #### L 500.2500, L100.0100, L300.4310, BTS, L300.3900 ####[facility] [address] [place], [address] MCH (RBC) [Entitic mass] 32.2 pg High 27.0-32.0 [facility] Comment on above: Performed By: #### L 500.2500, L100.0100, L300.4310, BTS, L300.3900 ####[facility] [address] [place], [address] MCHC (RBC) [Mass/Vol] 34.0 g/dL Normal 32-36 [facility] Comment on above: Performed By: #### L 500.2500, L100.0100, L300.4310, BTS, L300.3900 ####[facility] [address] [place], [address] MCV (RBC) [Entitic vol] 94.5 fL High 80-94 [facility] Comment on above: Performed By: #### L 500.2500, L100.0100, L300.4310, BTS, L300.3900 ####[facility] [address] [place], [address] Monocytes/100 WBC (Bld) 7.6 % Normal 0-10 [facility] Comment on above: Performed By: #### L 500.2500, L100.0100, L300.4310, BTS, L300.3900 ####[facility] [address] [place], [address] Neutrophils/100 WBC (Bld) 74.9 % High 47-70 [facility] Comment on above: Performed By: #### L 500.2500, L100.0100, L300.4310, BTS, L300.3900 ####[facility] [address] [place], [address] Nucleated RBC (Bld) [#/Vol] 0 10*3/uL Normal 0-5 [facility] Comment on above: Performed By: #### L 500.2500, L100.0100, L300.4310, BTS, L300.3900 ####[facility] [address] [place], [address] Platelet mean volume (Bld) [Entitic vol] 10.1 fL Normal 6.2-12.0 [facility] Comment on above: Performed By: #### L 500.2500, L100.0100, L300.4310, BTS, L300.3900 ####[facility] [address] [place], [address] Platelets (Bld) [#/Vol] 340 10*3/uL Normal 150-450 [facility] Comment on above: Performed By: #### L 500.2500, L100.0100, L300.4310, BTS, L300.3900 ####[facility] [address] [place], [address] RBC (Bld) [#/Vol] 4.01 10*6/uL Low 4.6-6.2 [facility] Comment on above: Performed By: #### L 500.2500, L100.0100, L300.4310, BTS, L300.3900 ####[facility] [address] [place], [address] RDW SD 42.2 fl Normal 35.1-43.9 [facility] Comment on above: Performed By: #### L 500.2500, L100.0100, L300.4310, BTS, L300.3900 ####[facility] [address] [place], [address] WBC (Bld) [#/Vol] 7.9 10*3/uL Normal 4.4-11.0 [facility] Comment on above: Performed By: #### L 500.2500, L100.0100, L300.4310, BTS, L300.3900 ####[facility] [address] [place], [address] Calcium [Mass/Vol]Ordered By : Viral Gutiérrez on 08-09-2024 Serum or plasma calcium measurement (mass/volume) 9.8 mg/dL 7.6-11.0 [facility] Carbon dioxide, total [Moles /volume] in Central venous bloodOrdered By: Viral Gutiérrez on 08-09-2024 Carbon dioxide, total [Moles/volume] in Central venous blood 21.6 mmol/L 21.0-32.0 [facility] Chloride assayOrdered By: Arun Gutiérrez on 08-09-2024 Chloride assay 103 mmol/L 98-108 [facility] Creatinine [Mass/Vol]Ordered By: Viral Gutiérrez on 08-09-2024 Serum creatinine measurement (mass/volume) 1.44 mg/dL High 0.70-1.20 [facility] Emergency Department Summary on 08-09-2024 Emergency Department Summary Normal [facility] Eosinophil percentageOrdered By: Viral Gutiérrez on 08-09-2024 Eosinophil percentage 4.8 % 0-5 [facility] Erythrocyte distribution wid th (RBC) [Ratio]Ordered By: Viral Gutiérrez on 08-09-2024 Erythrocyte distribution width ratio 12.1 % 11.6-14.6 [facility] Erythrocyte distribution width standard deviation 42.2 fl 35.1-43.9 [facility] Estimation of creatinine terry aranceOrdered By: Viral Gutiérrez on 08-09-2024 Estimation of creatinine clearance 34.23 ml/min Low 50-250 [facility] GFR/1.73 sq M.predicted giorgi g non-blacks MDRD (S/P/Bld) [Vol rate/Area]Ordered By: Viral Gutiérrez on 08-09-2024 Glomerular filtration rate (GFR) estimation/1.73 sq m using serum, plasma, or whole b 49 Low >60 [facility] Glucose [Mass/Vol]Ordered By : Viral Gutiérrez on 08-09-2024 Serum glucose measurement (mass/volume) 106 mg/dL High 70-99 [facility] H AND P Exam - Hospitaliston 08-09-2024 H&P Exam - Hospitalist Normal [facility] Hematocrit Auto (Bld) [Volum e fraction]Ordered By: Viral Gutiérrez on 08-09-2024 Automated blood hematocrit (percentage) 37.9 % Low 40-54 [facility] Hemoglobin measurementOrdere d By: Viral Gutiérrez on 08-09-2024 Hemoglobin measurement 12.9 g/dL Low 13.0-16.5 [facility] Immature granulocytes/100 WB C Auto (Bld)Ordered By: Viral Gutiérrez on 08-09-2024 Automated immature granulocyte percentage 0.400 % 0.0-0.9 [facility] International normalized rat io (INR) calculationOrdered By: Viral Gutiérrez on 08-09-2024 International normalized ratio (INR) calculation 1.1 [facility] Lymphocytes Auto (Unsp spec) [#/Vol]Ordered By: Viral Gutiérrez on 08-09-2024 Absolute lymphocyte count 0.90 X10^3/uL 0.83-4.51 [facility] Lymphocytes/100 WBC Auto (Un sp spec)Ordered By: Viral Gutiérrez on 08-09-2024 Automated lymphocyte count as percentage of total leukocytes 11.4 % Low 19-41 [facility] MCV (RBC) [Entitic vol]Order ed By: Viral Gutiérrez on 08-09-2024 MCV (mean corpuscular volume) determination 94.5 fL High 80-94 [facility] MR/CON.PCM.GIon 08-09-2024 MR/CON.PCM.GI Normal [facility] Mean corpuscular hemoglobin (MCH) determinationOrdered By: Viral Gutiérrez on 08-09-2024 Mean corpuscular hemoglobin (MCH) determination 32.2 pg High 27.0-32.0 [facility] Mean corpuscular hemoglobin concentration (MCHC) determinationOrdered By: Viral Gutiérrez on 08-09-2024 Mean corpuscular hemoglobin concentration (MCHC) determination 34.0 g/dL 32-36 [facility] Mean platelet volume determi nationOrdered By: Viral Gutiérrez on 08-09-2024 Mean platelet volume determination 10.1 fl 6.2-12.0 [facility] Monocyte percentageOrdered B y: Viral Gutiérrez on 08-09-2024 Monocyte percentage 7.6 % 0-10 [facility] Neutrophil percentageOrdered By: Viral Gutiérrez on 08-09-2024 Neutrophil percentage 74.9 % High 47-70 [facility] Nucleated red blood cell per centageOrdered By: Viral Gutiérrez on 08-09-2024 Nucleated red blood cell percentage 0 % 0-5 [facility] Partial Thromboplast Timeon 08-09-2024 aPTT Coag (Bld) [Time] 26.6 s Normal 24.1-36.2 [facility] Comment on above: Performed By: #### L 500.2500, L100.0100, L300.4310, BTS, L300.3900 ####[facility] [address] [place], [place], [id number] Platelet countOrdered By: Arun Gutiérrez on 08-09-2024 Platelet count 340 K/mm3 150-450 [facility] Potassium (Unsp spec) [Mass/ Vol]Ordered By: Viral Gutiérrez on 08-09-2024 Potassium measurement (mass/volume) 3.6 mmol/L 3.3-5.1 [facility] Prothrombin Time w/INRon INR Coag (PPP) [Relative time] 1.1 {INR} Normal [facility] Comment on above: Performed By: #### L 500.2500, L100.0100, L300.4310, BTS, L300.3900 ####[facility] [address] [place], [address] Prothrombin timeOrdered By: Viral Gutiérrez on 08-09-2024 PT Coag (PPP) [Time] 14.0 s Normal 11.7-14.9 [facility] Comment on above: Performed By: #### L 500.2500, L100.0100, L300.4310, BTS, L300.3900 ####[facility] [address] [place], [address] Prothrombin time 14.0 SECONDS 11.7-14.9 [facility] RBC Auto (Bld) [#/Vol]Ordere d By: Viral Gutiérrez on 08-09-2024 Automated blood erythrocyte count 4.01 M/mm3 Low 4.6-6.2 [facility] Sodium levelOrdered By: Viral Gutiérrez on 08-09-2024 Sodium level 136 mmol/L 133-145 [facility] Type AND Screenon 08-09-2024 ABO and Rh group Nom (Bld) Blood group O Rh(D) positive Normal [facility] Comment on above: Order Comment: HGI Performed By: #### L 500.2500, L100.0100, L300.4310, BTS, L300.3900 ####[facility] [address] [place], [place], [id number] Urea nitrogen [Mass/Vol]Orde red By: Viral Gutiérrez on 08-09-2024 Serum or plasma urea nitrogen measurement (mass/volume) 24 mg/dL High 4-19 [facility] White blood cell (WBC) count Ordered By: Viral Gutiérrez on 08-09-2024 White blood cell (WBC) count 7.9 K/mm3 4.4-11.0 [facility] aPTT Coag (PPP) [Time]Ordere d By: Viral Gutiérrez on 08-09-2024 Activated partial thromboplastin time (aPTT) in platelet poor plasma by coagulation a 26.6 Seconds 24.1-36.2 [facility] ALP [Catalytic activity/Vol] Ordered By: Addy Luciano on 08-03-2024 Serum or plasma alkaline phosphatase measurement 65 U/L 40-129 [facility] ALT [Catalytic activity/Vol] Ordered By: Addy Luciano on 08-03-2024 Serum or plasma alanine aminotransferase (ALT) measurement 21 U/L <47 [facility] Albumin [Mass/Vol]Ordered By : Zebethanylun Beam on 08-03-2024 Serum or plasma albumin measurement (mass/volume) 4.1 g/dL 3.4-4.8 [facility] Albumin/Globulin [Mass ratio ]Ordered By: Zebulun Beam on 08-03-2024 Serum or plasma albumin/globulin mass ratio 2.1 RATIO 0.9-2.4 [facility] Anion gap [Moles/Vol]Ordered By: Zebulun Beam on 08-03-2024 Anion gap in Serum or Plasma 11 5- [facility] Anion gap in Serum or Plasma Ordered By: Zebethanylun Beam on 08-03-2024 Anion gap [Moles/Vol] 11 mmol/L 09-14 [facility] BUN/creatinine ratioOrdered By: Addy Beam on 08-03-2024 Urea nitrogen/Creatinine [Mass ratio] 11.4 mg/mg 10- [facility] BUN/creatinine ratio 11.4 RATIO 10-20 [facility] Bilirubin, totalOrdered By: Addy Beam on 08-03-2024 Bilirubin [Mass/Vol] 0.52 mg/dL 0.00-1.30 [facility] Bilirubin, total 0.52 mg/dL 0.00-1.30 [facility] Calcium [Mass/Vol]Ordered By : Marcelalun Beam on 08-03-2024 Serum or plasma calcium measurement (mass/volume) 9.8 mg/dL 7.6-11.0 [facility] Carbon dioxide, total [Moles /volume] in Central venous bloodOrdered By: Zebethanylun Beam on 08-03-2024 CO2 [Moles/Vol] 24.5 mmol/L 21.0-32.0 [facility] Carbon dioxide, total [Moles/volume] in Central venous blood 24.5 mmol/L 21.0-32.0 [facility] Chloride assayOrdered By: Javier Luciano on 08-03-2024 Chloride [Moles/Vol] 106 mmol/L 98-108 [facility] Chloride assay 106 mmol/L 98-108 [facility] Comprehensive Metabolic Prof ilon 08-03-2024 Albumin [Mass/Vol] 4.1 g/dL Normal 3.4-4.8 [facility] Comment on above: Performed By: #### L 500.4050 ####[facility] [address] [place], [address] Albumin/Globulin [Mass ratio] 2.1 {ratio} Normal 0.9-2.4 [facility] Comment on above: Performed By: #### L 500.4050 ####[facility] [address] [place], [address] ALK PHOS 65 U/L Normal 40-129 [facility] Comment on above: Performed By: #### L 500.4050 ####[facility] [address] [place], [address] ALT [Catalytic activity/Vol] 21 U/L Normal <=46 [facility] Comment on above: Performed By: #### L 500.4050 ####[facility] [address] [place], [address] AST [Catalytic activity/Vol] 24 U/L Normal <=37 [facility] Comment on above: Performed By: #### L 500.4050 ####[facility] [address] [place], [address] Bilirubin [Mass/Vol] 0.52 mg/dL Normal 0.00-1.30 [facility] Comment on above: Performed By: #### L 500.4050 ####[facility] [address] [place], [address] BUN/CRE 11.4 RATIO Normal 10-20 [facility] Comment on above: Performed By: #### L 500.4050 ####[facility] [address] [place], [address] Calcium [Mass/Vol] 9.8 mg/dL Normal 7.6-11.0 [facility] Comment on above: Performed By: #### L 500.4050 ####[facility] [address] [place], [address] Chloride [Moles/Vol] 106 mmol/L Normal 98-108 [facility] Comment on above: Performed By: #### L 500.4050 ####[facility] [address] [place], [address] CO2 [Moles/Vol] 24.5 mmol/L Normal 21.0-32.0 [facility] Comment on above: Performed By: #### L 500.4050 ####[facility] [address] [place], [address] Creatinine [Mass/Vol] 1.31 mg/dL High 0.70-1.20 [facility] Comment on above: Performed By: #### L 500.4050 ####[facility] [address] [place], [address] GAP 11 Normal 5-15 [facility] Comment on above: Performed By: #### L 500.4050 ####[facility] [address] [place], [address] GFR/1.73 sq M.predicted among non-blacks MDRD (S/P/Bld) [Vol rate/Area] 55 mL/min/{1.73_m2} Low >60 [facility] Comment on above: Result Comment: mL/m in/1.73m2 CKD-EPI Creatinine Equation (2020) Performed By: #### L 500.4050 ####[facility] [address] [place], [address] Globulin (S) [Mass/Vol] 1.9 g/dL Low 2.2-4.2 [facility] Comment on above: Performed By: #### L 500.4050 ####[facility] [address] [place], [address] Glucose [Mass/Vol] 103 mg/dL High 70-99 [facility] Comment on above: Performed By: #### L 500.4050 ####[facility] [address] [place], [address] Potassium [Moles/Vol] 4.1 mmol/L Normal 3.3-5.1 [facility] Comment on above: Performed By: #### L 500.4050 ####[facility] [address] [place], [address] Sodium [Moles/Vol] 141 mmol/L Normal 133-145 [facility] Comment on above: Performed By: #### L 500.4050 ####[facility] [address] [place], [address] T PROT 6.0 g/dL Normal 5.9-8.4 [facility] Comment on above: Performed By: #### L 500.4050 ####[facility] [address] [place], [address] Urea nitrogen [Mass/Vol] 15 mg/dL Normal 4-19 [facility] Comment on above: Performed By: #### L 500.4050 ####[facility] [address] [place], [address] Creatinine [Mass/Vol]Ordered By: Addy Luciano on 08-03-2024 Serum creatinine measurement (mass/volume) 1.31 mg/dL High 0.70-1.20 [facility] GFR/1.73 sq M.predicted giorgi g non-blacks MDRD (S/P/Bld) [Vol rate/Area]Ordered By: Addy Luciano on 08-03-2024 Glomerular filtration rate (GFR) estimation/1.73 sq m using serum, plasma, or whole b 55 Low >60 [facility] Glomerular filtration rate ( GFR) estimation/1.73 sq m using serum, plasma, or whole bOrdered By: Addy Luciano on 08-03-2024 GFR/1.73 sq M.predicted among non-blacks MDRD (S/P/Bld) [Vol rate/Area] 55 mL/min/{1.73_m2} Low >60 [facility] Glucose [Mass/Vol]Ordered By : Addy Luciano on 08-03-2024 Serum glucose measurement (mass/volume) 103 mg/dL High 70-99 [facility] No Panel InformationOrdered By: Addy Luciano on 08-03-2024 24 U/L <38 [facility] Potassium (Unsp spec) [Mass/ Vol]Ordered By: Addy Luciano on 08-03-2024 Potassium measurement (mass/volume) 4.1 mmol/L 3.3-5.1 [facility] Potassium measurement (mass/ volume)Ordered By: Addy Luciano on 08-03-2024 Potassium (Unsp spec) [Mass/Vol] 4.1 mmol/L 3.3-5.1 [facility] Serum creatinine measurement (mass/volume)Ordered By: Addy Luciano on 08-03-2024 Creatinine [Mass/Vol] 1.31 mg/dL High 0.70-1.20 [facility] Serum globulin measurementOr dered By: Addy Luciano on 08-03-2024 Globulin (S) [Mass/Vol] 1.9 g/dL Low 2.2-4.2 [facility] Serum globulin measurement 1.9 g/dL Low 2.2-4.2 [facility] Serum glucose measurement (m ass/volume)Ordered By: Addy Luciano on 08-03-2024 Glucose [Mass/Vol] 103 mg/dL High 70-99 [facility] Serum or plasma alanine ugalde otransferase (ALT) measurementOrdered By: Addy Luciano on 08-03-2024 ALT [Catalytic activity/Vol] 21 U/L <47 [facility] Serum or plasma albumin jenna urement (mass/volume)Ordered By: Addy Luciano on 08-03-2024 Albumin [Mass/Vol] 4.1 g/dL 3.4-4.8 [facility] Serum or plasma albumin/glob ulin mass ratioOrdered By: Addy Luciano on 08-03-2024 Albumin/Globulin [Mass ratio] 2.1 {ratio} 0.9-2.4 [facility] Serum or plasma alkaline melida sphatase measurementOrdered By: Zebulun Beam on 08-03-2024 ALP [Catalytic activity/Vol] 65 U/L 40-129 [facility] Serum or plasma calcium jenna urement (mass/volume)Ordered By: Zebulun Beam on 08-03-2024 Calcium [Mass/Vol] 9.8 mg/dL 7.6-11.0 [facility] Serum or plasma urea nitroge n measurement (mass/volume)Ordered By: Zebulun Beam on 08-03-2024 Urea nitrogen [Mass/Vol] 15 mg/dL 08-19 [facility] Sodium levelOrdered By: Zebu evgeny Beam on 08-03-2024 Sodium [Moles/Vol] 141 mmol/L 133-145 [facility] Sodium level 141 mmol/L 133-145 [facility] Total proteinOrdered By: Dharmesh Luciano on 08-03-2024 Protein [Mass/Vol] 6.0 g/dL 5.9-8.4 [facility] Total protein 6.0 g/dL 5.9-8.4 [facility] Urea nitrogen [Mass/Vol]Orde red By: Zebulun Beam on 08-03-2024 Serum or plasma urea nitrogen measurement (mass/volume) 15 mg/dL 08-19 [facility] Absolute lymphocyte countOrd ered By: Nanette Macdonald on 08-02-2024 Lymphocytes Auto (Unsp spec) [#/Vol] 0.92 10*3/uL 0.83-4.51 [facility] Absolute neutrophil countOrd ered By: Nanette Macdonald on 08-02-2024 Absolute neutrophil count 4.7 X10^3/uL 2.0-7.7 [facility] Automated blood erythrocyte countOrdered By: Nanette Macdonald on 08-02-2024 RBC (Bld) [#/Vol] 3.96 10*6/uL Low 4.6-6.2 [facility] Comment on above: Performed By: #### L 100.0100 ####[facility] [address] [place], [address] Automated blood hematocrit ( percentage)Ordered By: Nanette Macdonald on 08-02-2024 Hematocrit (Bld) [Volume fraction] 37.9 % Low 40-54 [facility] Comment on above: Performed By: #### L 100.0100 ####[facility] [address] [place], [address] Automated lymphocyte count a s percentage of total leukocytesOrdered By: Nanette Macdonald on 08-02-2024 Lymphocytes/100 WBC Auto (Unsp spec) 13.5 % Low 19-41 [facility] Basophil percentageOrdered B y: Nanette Macdonald on 08-02-2024 Basophils/100 WBC (Bld) 1.0 % Normal 0-1 [facility] Comment on above: Performed By: #### L 100.0100 ####[facility] [address] [place], [address] Basophil percentage 1.0 % 0-1 [facility] CBC W/Diff, Automatedon 04-0 -2024 Absolute Lymph 0.92 X10 3/uL Normal 0.83-4.51 [facility] Comment on above: Performed By: #### L 100.0100 ####[facility] [address] [place], [address] Absolute Neut 4.7 X10 3/uL Normal 2.0-7.7 [facility] Comment on above: Performed By: #### L 100.0100 ####[facility] [address] [place], [address] IG% 0.100 Normal 0.0-0.9 [facility] Comment on above: Result Comment: IG% - Immature Granulocytes (promyelocytes, myelocytes andmetamyelocytes) > 1% indicates that a LEFT SHIFT is Present. Performed By: #### L 100.0100 ####[facility] [address] [place], [address] Lymphocytes/100 WBC (Bld) 13.5 % Low 19-41 [facility] Comment on above: Performed By: #### L 100.0100 ####[facility] [address] [place], [address] MCHC (RBC) [Mass/Vol] 33.5 g/dL Normal 32-36 [facility] Comment on above: Performed By: #### L 100.0100 ####[facility] [address] [place], [address] Nucleated RBC (Bld) [#/Vol] 0 10*3/uL Normal 0-5 [facility] Comment on above: Performed By: #### L 100.0100 ####[facility] [address] [place], [address] Platelet mean volume (Bld) [Entitic vol] 10.3 fL Normal 6.2-12.0 [facility] Comment on above: Performed By: #### L 100.0100 ####[facility] [address] [place], [address] RDW SD 43.5 fl Normal 35.1-43.9 [facility] Comment on above: Performed By: #### L 100.0100 ####[facility] [address] [place], [address] Eosinophil percentageOrdered By: Nanette Macdonald on 08-02-2024 Eosinophils/100 WBC (Bld) 9.4 % High 0-5 [facility] Comment on above: Performed By: #### L 100.0100 ####[facility] [address] [place], [address] Eosinophil percentage 9.4 % High 0-5 [facility] Erythrocyte distribution wid th (RBC) [Ratio]Ordered By: Nanette Macdonald on 08-02-2024 Erythrocyte distribution width ratio 12.5 % 11.6-14.6 [facility] [facility] Erythrocyte distribution width standard deviation 43.5 fl 35.1-43.9 [facility] Erythrocyte distribution wid th ratioOrdered By: Nanette Macdonald on 08-02-2024 Erythrocyte distribution width (RBC) [Ratio] 12.5 % Normal 11.6-14.6 [facility] Comment on above: Performed By: #### L 100.0100 ####[facility] [address] [place], [place], [id number] Erythrocyte distribution wid th standard deviationOrdered By: Nanette Macdonald on 08-02-2024 Erythrocyte distribution width (RBC) [Ratio] 43.5 fl 35.1-43.9 [facility] Gastroenterology Visit Repor ton 08-02-2024 Gastroenterology Visit Report Normal [facility] Hematocrit Auto (Bld) [Volum e fraction]Ordered By: Nanette Macdonald on 08-02-2024 Automated blood hematocrit (percentage) 37.9 % Low 40-54 [facility] Hemoglobin measurementOrdere d By: Nanette Macdonald on 08-02-2024 Hemoglobin (Bld) [Mass/Vol] 12.7 g/dL Low 13.0-16.5 [facility] Comment on above: Performed By: #### L 100.0100 ####[facility] [address] [place], [place], [address] Hemoglobin measurement 12.7 g/dL Low 13.0-16.5 [facility] Immature granulocytes/100 WB C Auto (Bld)Ordered By: Nanette Macdonald on 08-02-2024 Immature granulocytes/100 WBC (Bld) 0.100 % 0.0-0.9 [facility] Automated immature granulocyte percentage 0.100 % 0.0-0.9 [facility] Lymphocytes Auto (Unsp spec) [#/Vol]Ordered By: Nanette Macdonald on 08-02-2024 Absolute lymphocyte count 0.92 X10^3/uL 0.83-4.51 [facility] Lymphocytes/100 WBC Auto (Un sp spec)Ordered By: Nanette Macdonald on 08-02-2024 Automated lymphocyte count as percentage of total leukocytes 13.5 % Low 19-41 [facility] MCV (RBC) [Entitic vol]Order ed By: Nanette Macdonald on 08-02-2024 MCV (mean corpuscular volume) determination 95.7 fL High 80-94 [facility] MCV (mean corpuscular volume ) determinationOrdered By: Nanette Macdonald on 08-02-2024 MCV (RBC) [Entitic vol] 95.7 fL High 80-94 [facility] Comment on above: Performed By: #### L 100.0100 ####[facility] [address] [facility] [id number] Mean corpuscular hemoglobin (MCH) determinationOrdered By: Nanette Macdonald on 08-02-2024 MCH (RBC) [Entitic mass] 32.1 pg High 27.0-32.0 [facility] Comment on above: Performed By: #### L 100.0100 ####[facility] [address] [place], [place], [address] Mean corpuscular hemoglobin (MCH) determination 32.1 pg High 27.0-32.0 [facility] Mean corpuscular hemoglobin concentration (MCHC) determinationOrdered By: Nanette Macdonald on 08-02-2024 Mean corpuscular hemoglobin concentration (MCHC) determination 33.5 g/dL 32-36 [facility] Mean platelet volume determi nationOrdered By: Nanette Macdonald on 08-02-2024 Mean platelet volume determination 10.3 fl 6.2-12.0 [facility] Monocyte percentageOrdered B y: Nanette Macdonald on 08-02-2024 Monocytes/100 WBC (Bld) 6.9 % Normal 0-10 [facility] Comment on above: Performed By: #### L 100.0100 ####[facility] [address] [place], [place], [id number] Monocyte percentage 6.9 % 0-10 [facility] Neutrophil percentageOrdered By: Nanette Macdonald on 08-02-2024 Neutrophils/100 WBC (Bld) 69.1 % Normal 47-70 [facility] Comment on above: Performed By: #### L 100.0100 ####[facility] [address] [place], [address] Neutrophil percentage 69.1 % 47-70 [facility] Nucleated red blood cell per centageOrdered By: Nanette Macdonald on 08-02-2024 Nucleated red blood cell percentage 0 % 0-5 [facility] Platelet countOrdered By: Serjio Macdonald on 08-02-2024 Platelets (Bld) [#/Vol] 315 10*3/uL Normal 150-450 [facility] Comment on above: Performed By: #### L 100.0100 ####[facility] [address] [place], [place], [phone]) Platelet count 315 K/mm3 150-450 [facility] RBC Auto (Bld) [#/Vol]Ordere d By: Nanette Macdonald on 08-02-2024 Automated blood erythrocyte count 3.96 M/mm3 Low 4.6-6.2 [facility] White blood cell (WBC) count Ordered By: Nanette Macdonald on 08-02-2024 WBC (Bld) [#/Vol] 6.8 10*3/uL Normal 4.4-11.0 [facility] Comment on above: Performed By: #### L 100.0100 ####[facility] [address] [facility] [place], [address] White blood cell (WBC) count 6.8 K/mm3 4.4-11.0 [facility] ALP [Catalytic activity/Vol] Ordered By: Tiki Saldivar on 07-28-2024 Serum or plasma alkaline phosphatase measurement 65 U/L 40-129 [facility] ALT [Catalytic activity/Vol] Ordered By: Tiki Saldivar on 07-28-2024 Serum or plasma alanine aminotransferase (ALT) measurement 15 U/L <47 [facility] Absolute lymphocyte countOrd ered By: Tiki Saldivar on 07-28-2024 Lymphocytes Auto (Unsp spec) [#/Vol] 0.98 10*3/uL 0.83-4.51 [facility] Absolute neutrophil countOrd ered By: Tiki Saldivar on 07-28-2024 Absolute neutrophil count 5.4 X10^3/uL 2.0-7.7 [facility] Albumin [Mass/Vol]Ordered By : Tiki Saldivar on 07-28-2024 Serum or plasma albumin measurement (mass/volume) 3.9 g/dL 3.4-4.8 [facility] Albumin/Globulin [Mass ratio ]Ordered By: Tiki Saldivar on 07-28-2024 Serum or plasma albumin/globulin mass ratio 2.2 RATIO 0.9-2.4 [facility] Anion gap [Moles/Vol]Ordered By: Tiki Saldivar on 07-28-2024 Anion gap in Serum or Plasma 12 5-15 [facility] Anion gap in Serum or Plasma Ordered By: Tiki Saldivar on 07-28-2024 Anion gap [Moles/Vol] 12 mmol/L - [facility] Automated lymphocyte count a s percentage of total leukocytesOrdered By: Tiki Saldivar on 07-28-2024 Lymphocytes/100 WBC Auto (Unsp spec) 12.7 % Low 19-41 [facility] BUN/creatinine ratioOrdered By: Tiki Saldivar on 07-28-2024 Urea nitrogen/Creatinine [Mass ratio] 15.5 mg/mg 10-20 [facility] BUN/creatinine ratio 15.5 RATIO 10-20 [facility] Basophil percentageOrdered B y: Tiki Saldivar on 07-28-2024 Basophils/100 WBC (Bld) 1.2 % High 0-1 [facility] Basophil percentage 1.2 % High 0-1 [facility] Bedside Glucoseon 07-28-2024 FINGERSTICK GLU 129 mg/dL High 74-106 [facility] Comment on above: Result Comment: XU GEMENT OF PATIENT CARE PER NURSING PROTOCOL Performed By: #### L 501.080 ####[facility] [address] [facility] [address] FINGERSTICK GLU 94 mg/dL Normal 74-106 [facility] Comment on above: Result Comment: XU GEMENT OF PATIENT CARE PER NURSING PROTOCOL Performed By: #### L 501.080 ####[facility] [address] [place], [address] Bilirubin, totalOrdered By: Tiki Saldivar on 07-28-2024 Bilirubin [Mass/Vol] 0.73 mg/dL 0.00-1.30 [facility] Bilirubin, total 0.73 mg/dL 0.00-1.30 [facility] CBC W/Diff, Automatedon 07-02 Absolute Lymph 0.98 X10 3/uL Normal 0.83-4.51 [facility] Comment on above: Performed By: #### L 300.3900, L501.9520, L100.0100, L500.4050, L501.5200 ####[facility] [address] [place], [address] Absolute Neut 5.4 X10 3/uL Normal 2.0-7.7 [facility] Comment on above: Performed By: #### L 300.3900, L501.9520, L100.0100, L500.4050, L501.5200 ####[facility] [address] [place], [address] Basophils/100 WBC (Bld) 1.2 % High 0-1 [facility] Comment on above: Performed By: #### L 300.3900, L501.9520, L100.0100, L500.4050, L501.5200 ####[facility] [address] [place], [address] Eosinophils/100 WBC (Bld) 6.6 % High 0-5 [facility] Comment on above: Performed By: #### L 300.3900, L501.9520, L100.0100, L500.4050, L501.5200 ####[facility] [address] [place], [address] Erythrocyte distribution width (RBC) [Ratio] 12.4 % Normal 11.6-14.6 [facility] Comment on above: Performed By: #### L 300.3900, L501.9520, L100.0100, L500.4050, L501.5200 ####[facility] [address] [place], [address] Hematocrit (Bld) [Volume fraction] 35.9 % Low 40-54 [facility] Comment on above: Performed By: #### L 300.3900, L501.9520, L100.0100, L500.4050, L501.5200 ####[facility] [address] [place], [address] Hemoglobin (Bld) [Mass/Vol] 12.6 g/dL Low 13.0-16.5 [facility] Comment on above: Performed By: #### L 300.3900, L501.9520, L100.0100, L500.4050, L501.5200 ####[facility] [address] [place], [address] IG% 0.400 Normal 0.0-0.9 [facility] Comment on above: Result Comment: IG% - Immature Granulocytes (promyelocytes, myelocytes andmetamyelocytes) > 1% indicates that a LEFT SHIFT is Present. Performed By: #### L 300.3900, L501.9520, L100.0100, L500.4050, L501.5200 ####[facility] [address] [place], [address] Lymphocytes/100 WBC (Bld) 12.7 % Low 19-41 [facility] Comment on above: Performed By: #### L 300.3900, L501.9520, L100.0100, L500.4050, L501.5200 ####[facility] [address] [place], [address] MCH (RBC) [Entitic mass] 32.6 pg High 27.0-32.0 [facility] Comment on above: Performed By: #### L 300.3900, L501.9520, L100.0100, L500.4050, L501.5200 ####[facility] [address] [place], [address] MCHC (RBC) [Mass/Vol] 35.1 g/dL Normal 32-36 [facility] Comment on above: Performed By: #### L 300.3900, L501.9520, L100.0100, L500.4050, L501.5200 ####[facility] [address] [place], [address] MCV (RBC) [Entitic vol] 93.0 fL Normal 80-94 [facility] Comment on above: Performed By: #### L 300.3900, L501.9520, L100.0100, L500.4050, L501.5200 ####[facility] [address] [place], [address] Monocytes/100 WBC (Bld) 8.7 % Normal 0-10 [facility] Comment on above: Performed By: #### L 300.3900, L501.9520, L100.0100, L500.4050, L501.5200 ####[facility] [address] [place], [address] Neutrophils/100 WBC (Bld) 70.4 % High 47-70 [facility] Comment on above: Performed By: #### L 300.3900, L501.9520, L100.0100, L500.4050, L501.5200 ####[facility] [address] [place], [address] Nucleated RBC (Bld) [#/Vol] 0 10*3/uL Normal 0-5 [facility] Comment on above: Performed By: #### L 300.3900, L501.9520, L100.0100, L500.4050, L501.5200 ####[facility] [address] [place], [address] Platelet mean volume (Bld) [Entitic vol] 9.9 fL Normal 6.2-12.0 [facility] Comment on above: Performed By: #### L 300.3900, L501.9520, L100.0100, L500.4050, L501.5200 ####[facility] [address] [place], [address] Platelets (Bld) [#/Vol] 323 10*3/uL Normal 150-450 [facility] Comment on above: Performed By: #### L 300.3900, L501.9520, L100.0100, L500.4050, L501.5200 ####[facility] [address] [place], [address] RBC (Bld) [#/Vol] 3.86 10*6/uL Low 4.6-6.2 [facility] Comment on above: Performed By: #### L 300.3900, L501.9520, L100.0100, L500.4050, L501.5200 ####[facility] [address] [place], [address] RDW SD 42.3 fl Normal 35.1-43.9 [facility] Comment on above: Performed By: #### L 300.3900, L501.9520, L100.0100, L500.4050, L501.5200 ####[facility] [address] [place], [address] WBC (Bld) [#/Vol] 7.7 10*3/uL Normal 4.4-11.0 [facility] Comment on above: Performed By: #### L 300.3900, L501.9520, L100.0100, L500.4050, L501.5200 ####[facility] [address] [place], [address] Calcium [Mass/Vol]Ordered By : Tiki Saldivar on 07-28-2024 Serum or plasma calcium measurement (mass/volume) 9.3 mg/dL 7.6-11.0 [facility] Carbon dioxide, total [Moles /volume] in Central venous bloodOrdered By: Tiki Saldivar on 07-28-2024 CO2 [Moles/Vol] 23.3 mmol/L 21.0-32.0 [facility] Carbon dioxide, total [Moles/volume] in Central venous blood 23.3 mmol/L 21.0-32.0 [facility] Chloride assayOrdered By: Flora Saldivar on 07-28-2024 Chloride [Moles/Vol] 106 mmol/L 98-108 [facility] Chloride assay 106 mmol/L 98-108 [facility] Comprehensive Metabolic Prof ilon 07-28-2024 Albumin [Mass/Vol] 3.9 g/dL Normal 3.4-4.8 [facility] Comment on above: Performed By: #### L 300.3900, L501.9520, L100.0100, L500.4050, L501.5200 ####[facility] [address] [place], [address] Albumin/Globulin [Mass ratio] 2.2 {ratio} Normal 0.9-2.4 [facility] Comment on above: Performed By: #### L 300.3900, L501.9520, L100.0100, L500.4050, L501.5200 ####[facility] [address] [place], [address] ALK PHOS 65 U/L Normal 40-129 [facility] Comment on above: Performed By: #### L 300.3900, L501.9520, L100.0100, L500.4050, L501.5200 ####[facility] [address] [place], [address] ALT [Catalytic activity/Vol] 15 U/L Normal <=46 [facility] Comment on above: Performed By: #### L 300.3900, L501.9520, L100.0100, L500.4050, L501.5200 ####[facility] [address] [place], [address] AST [Catalytic activity/Vol] 28 U/L Normal <=37 [facility] Comment on above: Performed By: #### L 300.3900, L501.9520, L100.0100, L500.4050, L501.5200 ####[facility] [address] [place], [address] Bilirubin [Mass/Vol] 0.73 mg/dL Normal 0.00-1.30 [facility] Comment on above: Performed By: #### L 300.3900, L501.9520, L100.0100, L500.4050, L501.5200 ####[facility] [address] [place], [address] BUN/CRE 15.5 RATIO Normal 10-20 [facility] Comment on above: Performed By: #### L 300.3900, L501.9520, L100.0100, L500.4050, L501.5200 ####[facility] [address] [place], [address] Calcium [Mass/Vol] 9.3 mg/dL Normal 7.6-11.0 [facility] Comment on above: Performed By: #### L 300.3900, L501.9520, L100.0100, L500.4050, L501.5200 ####[facility] [address] [place], [address] Chloride [Moles/Vol] 106 mmol/L Normal 98-108 [facility] Comment on above: Performed By: #### L 300.3900, L501.9520, L100.0100, L500.4050, L501.5200 ####[facility] [address] [place], [address] CO2 [Moles/Vol] 23.3 mmol/L Normal 21.0-32.0 [facility] Comment on above: Performed By: #### L 300.3900, L501.9520, L100.0100, L500.4050, L501.5200 ####[facility] [address] [place], [address] Creatinine [Mass/Vol] 1.19 mg/dL Normal 0.70-1.20 [facility] Comment on above: Performed By: #### L 300.3900, L501.9520, L100.0100, L500.4050, L501.5200 ####[facility] [address] [place], [address] ECRCL 42.30 ml/min Low 50-250 [facility] Comment on above: Performed By: #### L 300.3900, L501.9520, L100.0100, L500.4050, L501.5200 ####[facility] [address] [place], [address] GAP 12 Normal 5-15 [facility] Comment on above: Performed By: #### L 300.3900, L501.9520, L100.0100, L500.4050, L501.5200 ####[facility] [address] [place], [address] GFR/1.73 sq M.predicted among non-blacks MDRD (S/P/Bld) [Vol rate/Area] 62 mL/min/{1.73_m2} Normal >60 [facility] Comment on above: Result Comment: mL/m in/1.73m2 CKD-EPI Creatinine Equation (2020) Performed By: #### L 300.3900, L501.9520, L100.0100, L500.4050, L501.5200 ####[facility] [address] [place], [address] Globulin (S) [Mass/Vol] 1.8 g/dL Low 2.2-4.2 [facility] Comment on above: Performed By: #### L 300.3900, L501.9520, L100.0100, L500.4050, L501.5200 ####[facility] [address] [place], [address] Glucose [Mass/Vol] 89 mg/dL Normal 70-99 [facility] Comment on above: Performed By: #### L 300.3900, L501.9520, L100.0100, L500.4050, L501.5200 ####[facility] [address] [place], [address] Potassium [Moles/Vol] 3.5 mmol/L Normal 3.3-5.1 [facility] Comment on above: Performed By: #### L 300.3900, L501.9520, L100.0100, L500.4050, L501.5200 ####[facility] [address] [place], [address] Sodium [Moles/Vol] 141 mmol/L Normal 133-145 [facility] Comment on above: Performed By: #### L 300.3900, L501.9520, L100.0100, L500.4050, L501.5200 ####[facility] [address] [place], [address] T PROT 5.7 g/dL Low 5.9-8.4 [facility] Comment on above: Performed By: #### L 300.3900, L501.9520, L100.0100, L500.4050, L501.5200 ####[facility] [address] [place], [address] Urea nitrogen [Mass/Vol] 19 mg/dL Normal 4-19 [facility] Comment on above: Performed By: #### L 300.3900, L501.9520, L100.0100, L500.4050, L501.5200 ####[facility] [address] [place], [address] Creatinine [Mass/Vol]Ordered By: Tiki Saldivar on 07-28-2024 Serum creatinine measurement (mass/volume) 1.19 mg/dL 0.70-1.20 [facility] Discharge Instructionon 07-02 Discharge Instruction Normal [facility] Eosinophil percentageOrdered By: Tiki Saldivar on 07-28-2024 Eosinophils/100 WBC (Bld) 6.6 % High 0-5 [facility] Eosinophil percentage 6.6 % High 0-5 [facility] Erythrocyte distribution wid th (RBC) [Ratio]Ordered By: Tiki Saldivar on 07-28-2024 Erythrocyte distribution width ratio 12.4 % 11.6-14.6 [facility] Erythrocyte distribution wid th ratioOrdered By: Tiki Saldivar on 07-28-2024 Erythrocyte distribution width (RBC) [Ratio] 12.4 % 11.6-14.6 [facility] Erythrocyte distribution wid th standard deviationOrdered By: Tiki Saldivar on 07-28-2024 Erythrocyte distribution width (RBC) [Ratio] 42.3 fl 35.1-43.9 [facility] Erythrocyte distribution width standard deviation 42.3 fl 35.1-43.9 [facility] Estimation of creatinine terry aranceOrdered By: Tiki Saldivar on 07-28-2024 Estimation of creatinine clearance 42.30 ml/min Low 50-250 [facility] GFR/1.73 sq M.predicted giorgi g non-blacks MDRD (S/P/Bld) [Vol rate/Area]Ordered By: Tiki Saldivar on 07-28-2024 Glomerular filtration rate (GFR) estimation/1.73 sq m using serum, plasma, or whole b 62 >60 [facility] Glomerular filtration rate ( GFR) estimation/1.73 sq m using serum, plasma, or whole bOrdered By: Tiki Saldivar on 07-28-2024 GFR/1.73 sq M.predicted among non-blacks MDRD (S/P/Bld) [Vol rate/Area] 62 mL/min/{1.73_m2} >60 [facility] Glucose [Mass/Vol]Ordered By : Tiki Saldivar on 07-28-2024 Serum glucose measurement (mass/volume) 89 mg/dL 70-99 [facility] Glucose measurement at bedsi deOrdered By: Rhys Fontana on 07-28-2024 Glucose [Mass/Vol] 129 mg/dL High 74-106 [facility] Glucose measurement at bedside 129 mg/dL High 74-106 [facility] HH, Hemoglobin AND Hematocri ton 07-28-2024 Hematocrit (Bld) [Volume fraction] 37.9 % Low 40-54 [facility] Comment on above: Performed By: #### L 100.0600 ####[facility] [address] [place], [address] Hemoglobin (Bld) [Mass/Vol] 13.1 g/dL Normal 13.0-16.5 [facility] Comment on above: Performed By: #### L 100.0600 ####[facility] [address] [place], [address] Hematocrit Auto (Bld) [Volum e fraction]Ordered By: Rhys Fontana on 07-28-2024 Hematocrit (Bld) [Volume fraction] 37.9 % Low 40-54 [facility] Automated blood hematocrit (percentage) 37.9 % Low 40-54 [facility] Hemoglobin measurementOrdere d By: Rhys Fontana on 07-28-2024 Hemoglobin (Bld) [Mass/Vol] 13.1 g/dL 13.0-16.5 [facility] Hemoglobin measurement 13.1 g/dL 13.0-16.5 [facility] Immature granulocytes/100 WB C Auto (Bld)Ordered By: Tiki Saldivar on 07-28-2024 Immature granulocytes/100 WBC (Bld) 0.400 % 0.0-0.9 [facility] Automated immature granulocyte percentage 0.400 % 0.0-0.9 [facility] International normalized rat io (INR) calculationOrdered By: Tiki Saldivar on 07-28-2024 International normalized ratio (INR) calculation 1.1 [facility] Lymphocytes Auto (Unsp spec) [#/Vol]Ordered By: Tiki Saldivar on 07-28-2024 Absolute lymphocyte count 0.98 X10^3/uL 0.83-4.51 [facility] Lymphocytes/100 WBC Auto (Un sp spec)Ordered By: Tiki Saldivar on 07-28-2024 Automated lymphocyte count as percentage of total leukocytes 12.7 % Low 19-41 [facility] MCV (RBC) [Entitic vol]Order ed By: Tiki Saldivar on 07-28-2024 MCV (mean corpuscular volume) determination 93.0 fL 80-94 [facility] MCV (mean corpuscular volume ) determinationOrdered By: Tiki Saldivar on 07-28-2024 MCV (RBC) [Entitic vol] 93.0 fL 80-94 [facility] Magnesiumon 07-28-2024 Magnesium [Mass/Vol] 1.7 mg/dL Normal 1.5-2.2 [facility] Comment on above: Performed By: #### L 300.3900, L501.9520, L100.0100, L500.4050, L501.5200 ####[facility] [address] [place], [place], [id number] Magnesium (Unsp spec) [Mass/ Vol]Ordered By: Tiki Saldivar on 07-28-2024 Magnesium measurement (mass/volume) 1.7 mg/dL 1.5-2.2 [facility] Magnesium measurement (mass/ volume)Ordered By: Tiki Saldivar on 07-28-2024 Magnesium (Unsp spec) [Mass/Vol] 1.7 mg/dL 1.5-2.2 [facility] Mean corpuscular hemoglobin (MCH) determinationOrdered By: Tiki Saldivar on 07-28-2024 MCH (RBC) [Entitic mass] 32.6 pg High 27.0-32.0 [facility] Mean corpuscular hemoglobin (MCH) determination 32.6 pg High 27.0-32.0 [facility] Mean corpuscular hemoglobin concentration (MCHC) determinationOrdered By: Tiki Saldivar on 07-28-2024 Mean corpuscular hemoglobin concentration (MCHC) determination 35.1 g/dL 32-36 [facility] Mean platelet volume determi nationOrdered By: Tiki Saldivar on 07-28-2024 Mean platelet volume determination 9.9 fl 6.2-12.0 [facility] Monocyte percentageOrdered B y: Tiki Saldivar on 07-28-2024 Monocytes/100 WBC (Bld) 8.7 % 0-10 [facility] Monocyte percentage 8.7 % 0-10 [facility] Neutrophil percentageOrdered By: Tiki Saldivar on 07-28-2024 Neutrophils/100 WBC (Bld) 70.4 % High 47-70 [facility] Neutrophil percentage 70.4 % High 47-70 [facility] No Panel InformationOrdered By: Tiki Saldivar on 07-28-2024 28 U/L <38 [facility] Nucleated red blood cell per centageOrdered By: Tiki Saldivar on 07-28-2024 Nucleated red blood cell percentage 0 % 0-5 [facility] Platelet countOrdered By: Flora Saldivar on 07-28-2024 Platelets (Bld) [#/Vol] 323 10*3/uL 150-450 [facility] Platelet count 323 K/mm3 150-450 [facility] Potassium (Unsp spec) [Mass/ Vol]Ordered By: Tiki Saldivar on 07-28-2024 Potassium measurement (mass/volume) 3.5 mmol/L 3.3-5.1 [facility] Potassium measurement (mass/ volume)Ordered By: Tiki Saldivar on 07-28-2024 Potassium (Unsp spec) [Mass/Vol] 3.5 mmol/L 3.3-5.1 [facility] Prothrombin Time w/INRon INR Coag (PPP) [Relative time] 1.1 {INR} Normal [facility] Comment on above: Performed By: #### L 300.3900, L501.9520, L100.0100, L500.4050, L501.5200 ####[facility] [address] [place], [place], [id number] PT Coag (PPP) [Time] 14.2 s Normal 11.7-14.9 [facility] Comment on above: Performed By: #### L 300.0580, L501.3873, L100.0100, L500.4510, L501.5200 ####[facility] [address] [place], [address] Prothrombin timeOrdered By: Tiki Saldivar on 07-28-2024 PT Coag (PPP) [Time] 14.2 s 11.7-14.9 [facility] Prothrombin time 14.2 SECONDS 11.7-14.9 [facility] RBC Auto (Bld) [#/Vol]Ordere d By: Tiki Saldivar on 07-28-2024 RBC (Bld) [#/Vol] 3.86 10*6/uL Low 4.6-6.2 [facility] Automated blood erythrocyte count 3.86 M/mm3 Low 4.6-6.2 [facility] Serum creatinine measurement (mass/volume)Ordered By: Tiki Saldivar on 07-28-2024 Creatinine [Mass/Vol] 1.19 mg/dL 0.70-1.20 [facility] Serum globulin measurementOr dered By: Tiki Saldivar on 07-28-2024 Globulin (S) [Mass/Vol] 1.8 g/dL Low 2.2-4.2 [facility] Serum globulin measurement 1.8 g/dL Low 2.2-4.2 [facility] Serum glucose measurement (m ass/volume)Ordered By: Tiki Saldivar on 07-28-2024 Glucose [Mass/Vol] 89 mg/dL 70-99 [facility] Serum or plasma alanine ugalde otransferase (ALT) measurementOrdered By: Tiki Saldivar on 07-28-2024 ALT [Catalytic activity/Vol] 15 U/L <47 [facility] Serum or plasma albumin jenna urement (mass/volume)Ordered By: Tiki Saldivar on 07-28-2024 Albumin [Mass/Vol] 3.9 g/dL 3.4-4.8 [facility] Serum or plasma albumin/glob ulin mass ratioOrdered By: Tiki Saldivar on 07-28-2024 Albumin/Globulin [Mass ratio] 2.2 {ratio} 0.9-2.4 [facility] Serum or plasma alkaline melida sphatase measurementOrdered By: Tiki Saldivar on 07-28-2024 ALP [Catalytic activity/Vol] 65 U/L 40-129 [facility] Serum or plasma calcium jenna urement (mass/volume)Ordered By: Tiki Saldivar on 07-28-2024 Calcium [Mass/Vol] 9.3 mg/dL 7.6-11.0 [facility] Serum or plasma urea nitroge n measurement (mass/volume)Ordered By: Tiki Saldivar on 07-28-2024 Urea nitrogen [Mass/Vol] 19 mg/dL - [facility] Sodium levelOrdered By: Kirsten Saldivar on 07-28-2024 Sodium [Moles/Vol] 141 mmol/L 133-145 [facility] Sodium level 141 mmol/L 133-145 [facility] TSH DL <= 0.005 mIU/L QnOrde red By: Tiki Saldivar on 07-28-2024 TSH Qn 2.440 uIU/mL 0.300-4.200 [facility] Serum or plasma thyroid stimulating hormone (TSH) measurement by high sensitivity met 2.440 uIU/mL 0.300-4.200 [facility] Thyroid Stim Hormone (TSH)on 07-28-2024 TSH 2.440 uIU/mL Normal 0.300-4.200 [facility] Comment on above: Performed By: #### L 300.3900, L501.9520, L100.0100, L500.4050, L501.5200 ####[facility] [address] [place], [address] Total proteinOrdered By: Tho Saldivar on 07-28-2024 Protein [Mass/Vol] 5.7 g/dL Low 5.9-8.4 [facility] Total protein 5.7 g/dL Low 5.9-8.4 [facility] Urea nitrogen [Mass/Vol]Orde red By: Tiki Saldivar on 07-28-2024 Serum or plasma urea nitrogen measurement (mass/volume) 19 mg/dL - [facility] White blood cell (WBC) count Ordered By: Tiki Saldivar on 07-28-2024 WBC (Bld) [#/Vol] 7.7 10*3/uL 4.4-11.0 [facility] White blood cell (WBC) count 7.7 K/mm3 4.4-11.0 [facility] ALP [Catalytic activity/Vol] Ordered By: Devon Reagan on 07-27-2024 Serum or plasma alkaline phosphatase measurement 74 U/L 40-129 [facility] ALT [Catalytic activity/Vol] Ordered By: Devon Reagan on 07-27-2024 Serum or plasma alanine aminotransferase (ALT) measurement 15 U/L <47 [facility] Abdomen/Pelvis W IV Cont ONL Yon 07-27-2024 Abdomen/Pelvis W IV Cont ONLY Normal [facility] Absolute neutrophil countOrd ered By: Devon Reagan on 07-27-2024 Absolute neutrophil count 5.6 X10^3/uL 2.0-7.7 [facility] Albumin [Mass/Vol]Ordered By : Devon Reagan on 07-27-2024 Serum or plasma albumin measurement (mass/volume) 4.3 g/dL 3.4-4.8 [facility] Albumin/Globulin [Mass ratio ]Ordered By: Devon Reagan on 07-27-2024 Serum or plasma albumin/globulin mass ratio 1.9 RATIO 0.9-2.4 [facility] Alcohol, Blood (Medical)-Ser umon 07-27-2024 SERUM ETOH 127.0 mg/dL High <=10.0 [facility] Comment on above: Result Comment: This test is for medical purposes only. The legaldefinition of intoxication varies according to local law. Performed By: #### L 501.9100 ####[facility] [address] [place], [address] Anion gap [Moles/Vol]Ordered By: Devon Reagan on 07-27-2024 Anion gap in Serum or Plasma 17 High 5-15 [facility] Arterial patency Wrist arter y --pre arterial punctureOrdered By: Tiki Saldivar on 07-27-2024 Assessment of wrist artery patency prior to arterial puncture Positive [facility] Assessment of wrist artery p atency prior to arterial punctureOrdered By: Tiki Saldivar on 07-27-2024 Arterial patency Wrist artery --pre arterial puncture Positive [facility] BUN/creatinine ratioOrdered By: Devon Reagan on 07-27-2024 BUN/creatinine ratio 21.7 RATIO High 10-20 [facility] Base excess Calc (BldV) [Mol es/Vol]Ordered By: Tiki Saldivar on 07-27-2024 Blood base excess determination -2 mmol/L -2-2 [facility] Venous blood base excess measurement -2 mmol/L Low -1.0-3.5 [facility] Basic Metabolic Profile (BMP )on 07-27-2024 BUN/CRE 2.2 RATIO Low 10-20 [facility] Comment on above: Performed By: #### L 500.2500 ####[facility] [address] [facility] [address] Calcium [Mass/Vol] 8.5 mg/dL Normal 7.6-11.0 [facility] Comment on above: Performed By: #### L 500.2500 ####[facility] [address] [place], [address] Chloride [Moles/Vol] 107 mmol/L Normal 98-108 [facility] Comment on above: Performed By: #### L 500.2500 ####[facility] [address] [place], [address] CO2 [Moles/Vol] 17.7 mmol/L Low 21.0-32.0 [facility] Comment on above: Performed By: #### L 500.2500 ####[facility] [address] [place], [address] Creatinine [Mass/Vol] 1.31 mg/dL High 0.70-1.20 [facility] Comment on above: Performed By: #### L 500.2500 ####[facility] [address] [place], [address] ECRCL 38.36 ml/min Low 50-250 [facility] Comment on above: Performed By: #### L 500.2500 ####[facility] [address] [place], [address] GAP 18 High 5-15 [facility] Comment on above: Performed By: #### L 500.2500 ####[facility] [address] [place], [address] GFR/1.73 sq M.predicted among non-blacks MDRD (S/P/Bld) [Vol rate/Area] 55 mL/min/{1.73_m2} Low >60 [facility] Comment on above: Result Comment: mL/m in/1.73m2 CKD-EPI Creatinine Equation (2020) Performed By: #### L 500.2500 ####[facility] [address] [place], [address] Glucose [Mass/Vol] 54 mg/dL Low 70-99 [facility] Comment on above: Performed By: #### L 500.2500 ####[facility] [address] [place], [address] Potassium [Moles/Vol] 3.8 mmol/L Normal 3.3-5.1 [facility] Comment on above: Performed By: #### L 500.2500 ####[facility] [address] [place], [address] Sodium [Moles/Vol] 143 mmol/L Normal 133-145 [facility] Comment on above: Performed By: #### L 500.2500 ####[facility] [address] [place], [address] Urea nitrogen [Mass/Vol] 3 mg/dL Low 4-19 [facility] Comment on above: Performed By: #### L 500.2500 ####[facility] [address] [place], [address] Basophil percentageOrdered B y: Devon AtkinsAnshulIngrid on 07-27-2024 Basophil percentage 1.2 % High 0-1 [facility] Bedside Glucoseon 07-27-2024 FINGERSTICK GLU 139 mg/dL High 74-106 [facility] Comment on above: Result Comment: XU TRIMBLE OF PATIENT CARE PER NURSING PROTOCOL Performed By: #### L 501.080 ####[facility] [address] [place], [address] Bilirubin Test strip Ql (U)O rdered By: Devon Glezgett on 07-27-2024 Bilirubin Ql (U) Negative Negative [facility] Bilirubin, totalOrdered By: Dveonjose Glezgett on 07-27-2024 Bilirubin, total 0.56 mg/dL 0.00-1.30 [facility] Blood Gases by CPSon 025 ROYER TEST Positive Normal [facility] Comment on above: Performed By: #### L 9000.0800 ####[facility] [address] [place], [address] Base excess Calc (Bld) [Moles/Vol] -2 mmol/L Normal -2 to +2 [facility] Comment on above: Performed By: #### L 9000.0800 ####[facility] [address] [place], [address] Blood Gas Type ART Normal [facility] Comment on above: Performed By: #### L 9000.0800 ####[facility] [address] [place], [address] CO2 [Moles/Vol] 23 mmol/L Normal [facility] Comment on above: Performed By: #### L 9000.0800 ####[facility] [address] [place], [address] HCO3 (Bld) [Moles/Vol] 22.4 mmol/L Normal 22-26 [facility] Comment on above: Performed By: #### L 9000.0800 ####[facility] [address] [place], [address] Mode Not entered Normal [facility] Comment on above: Performed By: #### L 9000.0800 ####[facility] [address] [place], [address] O2 Delivery Dev Room Air Normal [facility] Comment on above: Performed By: #### L 9000.0800 ####[facility] [address] [place], [address] pCO2 32.4 mmHg Low 35-45 [facility] Comment on above: Performed By: #### L 9000.0800 ####[facility] [address] [place], [address] pH (Bld) 7.45 [pH] Normal 7.35-7.45 [facility] Comment on above: Performed By: #### L 9000.0800 ####[facility] [address] [place], [address] PO2 68 mmHG Low 75-100 [facility] Comment on above: Performed By: #### L 9000.0800 ####[facility] [address] [place], [address] SITE L Radial Normal [facility] Comment on above: Performed By: #### L 9000.0800 ####[facility] [address] [place], [address] SO2 94 Low 95-99 [facility] Comment on above: Performed By: #### L 9000.0800 ####[facility] [address] [place], [address] Blood base excess determinat ionOrdered By: Tiki Saldivar on 07-27-2024 Base excess Calc (BldV) [Moles/Vol] -2 mmol/L -2-2 [facility] Blood bicarbonate measuremen tOrdered By: Tiki Saldivar on 07-27-2024 HCO3 (Bld) [Moles/Vol] 22.4 mmol/L [facility] Blood bicarbonate measurement 22.4 mmol/L [facility] CBC W/Diff, Automatedon 07-02 Absolute Lymph 1.02 X10 3/uL Normal 0.83-4.51 [facility] Comment on above: Performed By: #### L 503.6005, L501.2450, L100.0100, L500.4050 ####[facility] [address] [place], [address] Absolute Neut 5.6 X10 3/uL Normal 2.0-7.7 [facility] Comment on above: Performed By: #### L 503.6005, L501.2450, L100.0100, L500.4050 ####[facility] [address] [place], [address] Basophils/100 WBC (Bld) 1.2 % High 0-1 [facility] Comment on above: Performed By: #### L 503.6005, L501.2450, L100.0100, L500.4050 ####[facility] [address] [place], [address] Eosinophils/100 WBC (Bld) 6.0 % High 0-5 [facility] Comment on above: Performed By: #### L 503.6005, L501.2450, L100.0100, L500.4050 ####[facility] [address] [place], [address] Erythrocyte distribution width (RBC) [Ratio] 12.5 % Normal 11.6-14.6 [facility] Comment on above: Performed By: #### L 503.6005, L501.2450, L100.0100, L500.4050 ####[facility] [address] [place], [address] Hematocrit (Bld) [Volume fraction] 38.4 % Low 40-54 [facility] Comment on above: Performed By: #### L 503.6005, L501.2450, L100.0100, L500.4050 ####[facility] [address] [place], [address] Hemoglobin (Bld) [Mass/Vol] 13.5 g/dL Normal 13.0-16.5 [facility] Comment on above: Performed By: #### L 503.6005, L501.2450, L100.0100, L500.4050 ####[facility] [address] [place], [address] IG% 0.300 Normal 0.0-0.9 [facility] Comment on above: Result Comment: IG% - Immature Granulocytes (promyelocytes, myelocytes andmetamyelocytes) > 1% indicates that a LEFT SHIFT is Present. Performed By: #### L 503.6005, L501.2450, L100.0100, L500.4050 ####[facility] [address] [place], [address] Lymphocytes/100 WBC (Bld) 13.4 % Low 19-41 [facility] Comment on above: Performed By: #### L 503.6005, L501.2450, L100.0100, L500.4050 ####[facility] [address] [place], [address] MCH (RBC) [Entitic mass] 32.8 pg High 27.0-32.0 [facility] Comment on above: Performed By: #### L 503.6005, L501.2450, L100.0100, L500.4050 ####[facility] [address] [place], [address] MCHC (RBC) [Mass/Vol] 35.2 g/dL Normal 32-36 [facility] Comment on above: Performed By: #### L 503.6005, L501.2450, L100.0100, L500.4050 ####[facility] [address] [place], [address] MCV (RBC) [Entitic vol] 93.4 fL Normal 80-94 [facility] Comment on above: Performed By: #### L 503.6005, L501.2450, L100.0100, L500.4050 ####[facility] [address] [place], [address] Monocytes/100 WBC (Bld) 5.5 % Normal 0-10 [facility] Comment on above: Performed By: #### L 503.6005, L501.2450, L100.0100, L500.4050 ####[facility] [address] [place], [address] Neutrophils/100 WBC (Bld) 73.6 % High 47-70 [facility] Comment on above: Performed By: #### L 503.6005, L501.2450, L100.0100, L500.4050 ####[facility] [address] [place], [address] Nucleated RBC (Bld) [#/Vol] 0 10*3/uL Normal 0-5 [facility] Comment on above: Performed By: #### L 503.6005, L501.2450, L100.0100, L500.4050 ####[facility] [address] [place], [address] Platelet mean volume (Bld) [Entitic vol] 9.9 fL Normal 6.2-12.0 [facility] Comment on above: Performed By: #### L 503.6005, L501.2450, L100.0100, L500.4050 ####[facility] [address] [place], [address] Platelets (Bld) [#/Vol] 380 10*3/uL Normal 150-450 [facility] Comment on above: Performed By: #### L 503.6005, L501.2450, L100.0100, L500.4050 ####[facility] [address] [place], [address] RBC (Bld) [#/Vol] 4.11 10*6/uL Low 4.6-6.2 [facility] Comment on above: Performed By: #### L 503.6005, L501.2450, L100.0100, L500.4050 ####[facility] [address] [place], [address] RDW SD 42.6 fl Normal 35.1-43.9 [facility] Comment on above: Performed By: #### L 503.6005, L501.2450, L100.0100, L500.4050 ####[facility] [address] [place], [address] WBC (Bld) [#/Vol] 7.6 10*3/uL Normal 4.4-11.0 [facility] Comment on above: Performed By: #### L 503.6005, L501.2450, L100.0100, L500.4050 ####[facility] [address] [place], [address] CO2 (BldV) [Moles/Vol]Ordere d By: Tiki Saldivar on 07-27-2024 CO2 [Moles/Vol] 23 mmol/L - [facility] Venous blood total carbon dioxide measurement 23 mmol/L - [facility] CO2 (BldV) [Partial pressure ]Ordered By: Tiki Saldivar on 07-27-2024 Venous blood partial pressure of carbon dioxide measurement 28.1 mmHg Low 41-51 [facility] Calcium [Mass/Vol]Ordered By : Devon Reagan on 07-27-2024 Serum or plasma calcium measurement (mass/volume) 9.8 mg/dL 7.6-11.0 [facility] Carbon dioxide, total [Moles /volume] in Central venous bloodOrdered By: Devon Reagan on 07-27-2024 Carbon dioxide, total [Moles/volume] in Central venous blood 24.1 mmol/L 21.0-32.0 [facility] Chloride assayOrdered By: Asael Reagan on 07-27-2024 Chloride assay 102 mmol/L 98-108 [facility] Clarity (U)Ordered By: Devon Reagan on 07-27-2024 Urine clarity Clear Clear [facility] Color (U)Ordered By: Devon Crabtree on 07-27-2024 Urine color determination Yellow Yellow [facility] Comprehensive Metabolic Prof ilon 07-27-2024 Albumin [Mass/Vol] 4.3 g/dL Normal 3.4-4.8 [facility] Comment on above: Performed By: #### L 503.6005, L501.2450, L100.0100, L500.4050 ####[facility] [address] [place], [address] Albumin/Globulin [Mass ratio] 1.9 {ratio} Normal 0.9-2.4 [facility] Comment on above: Performed By: #### L 503.6005, L501.2450, L100.0100, L500.4050 ####[facility] [address] [place], [address] ALK PHOS 74 U/L Normal 40-129 [facility] Comment on above: Performed By: #### L 503.6005, L501.2450, L100.0100, L500.4050 ####[facility] [address] [place], [address] ALT [Catalytic activity/Vol] 15 U/L Normal <=46 [facility] Comment on above: Performed By: #### L 503.6005, L501.2450, L100.0100, L500.4050 ####[facility] [address] [place], [address] AST [Catalytic activity/Vol] 27 U/L Normal <=37 [facility] Comment on above: Performed By: #### L 503.6005, L501.2450, L100.0100, L500.4050 ####[facility] [address] [place], [address] Bilirubin [Mass/Vol] 0.56 mg/dL Normal 0.00-1.30 [facility] Comment on above: Performed By: #### L 503.6005, L501.2450, L100.0100, L500.4050 ####[facility] [address] [place], [address] BUN/CRE 21.7 RATIO High 10-20 [facility] Comment on above: Performed By: #### L 503.6005, L501.2450, L100.0100, L500.4050 ####[facility] [address] [place], [address] Calcium [Mass/Vol] 9.8 mg/dL Normal 7.6-11.0 [facility] Comment on above: Performed By: #### L 503.6005, L501.2450, L100.0100, L500.4050 ####[facility] [address] [place], [address] Chloride [Moles/Vol] 102 mmol/L Normal 98-108 [facility] Comment on above: Performed By: #### L 503.6005, L501.2450, L100.0100, L500.4050 ####[facility] [address] [place], [address] CO2 [Moles/Vol] 24.1 mmol/L Normal 21.0-32.0 [facility] Comment on above: Performed By: #### L 503.6005, L501.2450, L100.0100, L500.4050 ####[facility] [address] [place], [address] Creatinine [Mass/Vol] 1.51 mg/dL High 0.70-1.20 [facility] Comment on above: Performed By: #### L 503.6005, L501.2450, L100.0100, L500.4050 ####[facility] [address] [place], [address] ECRCL 36.04 ml/min Low 50-250 [facility] Comment on above: Performed By: #### L 503.6005, L501.2450, L100.0100, L500.4050 ####[facility] [address] [place], [address] GAP 17 High 5-15 [facility] Comment on above: Performed By: #### L 503.6005, L501.2450, L100.0100, L500.4050 ####[facility] [address] [place], [address] GFR/1.73 sq M.predicted among non-blacks MDRD (S/P/Bld) [Vol rate/Area] 46 mL/min/{1.73_m2} Low >60 [facility] Comment on above: Result Comment: mL/m in/1.73m2 CKD-EPI Creatinine Equation (2020) Performed By: #### L 503.6005, L501.2450, L100.0100, L500.4050 ####[facility] [address] [place], [address] Globulin (S) [Mass/Vol] 2.2 g/dL Normal 2.2-4.2 [facility] Comment on above: Performed By: #### L 503.6005, L501.2450, L100.0100, L500.4050 ####[facility] [address] [place], [address] Glucose [Mass/Vol] 84 mg/dL Normal 70-99 [facility] Comment on above: Performed By: #### L 503.6005, L501.2450, L100.0100, L500.4050 ####[facility] [address] [place], [address] Potassium [Moles/Vol] 3.2 mmol/L Low 3.3-5.1 [facility] Comment on above: Performed By: #### L 503.6005, L501.2450, L100.0100, L500.4050 ####[facility] [address] [place], [address] Sodium [Moles/Vol] 143 mmol/L Normal 133-145 [facility] Comment on above: Performed By: #### L 503.6005, L501.2450, L100.0100, L500.4050 ####[facility] [address] [place], [address] T PROT 6.5 g/dL Normal 5.9-8.4 [facility] Comment on above: Performed By: #### L 503.6005, L501.2450, L100.0100, L500.4050 ####[facility] [address] [place], [address] Urea nitrogen [Mass/Vol] 33 mg/dL High 4-19 [facility] Comment on above: Performed By: #### L 503.6005, L501.2450, L100.0100, L500.4050 ####[facility] [address] [place], [address] Creatinine [Mass/Vol]Ordered By: Devon Reagan on 07-27-2024 Serum creatinine measurement (mass/volume) 1.51 mg/dL High 0.70-1.20 [facility] Determination of fraction of inspired oxygenOrdered By: Tiki Saldivar on 07-27-2024 Determination of fraction of inspired oxygen 21.0 [facility] Emergency Department Summary on 07-27-2024 Emergency Department Summary Normal [facility] Eosinophil percentageOrdered By: Devon Reagan on 07-27-2024 Eosinophil percentage 6.0 % High 0-5 [facility] Erythrocyte distribution wid th (RBC) [Entitic vol]Ordered By: Left Hand Maddie Quintero on 07-27-2024 Erythrocyte distribution width standard deviation 42.6 fl 35.1-43.9 [facility] Erythrocyte distribution wid th (RBC) [Ratio]Ordered By: Devonjose Reagan on 07-27-2024 Erythrocyte distribution width ratio 12.5 % 11.6-14.6 [facility] Estimation of creatinine terry aranceOrdered By: Devon Reagan on 07-27-2024 Estimation of creatinine clearance 36.04 ml/min Low 50-250 [facility] Ethanol [Mass/Vol]Ordered By : Devon Reagan on 07-27-2024 Serum or plasma ethanol measurement (mass/volume) 127.0 mg/dL High <10.1 [facility] GFR/1.73 sq M.predicted giorgi g non-blacks MDRD (S/P/Bld) [Vol rate/Area]Ordered By: Devon Reagan on 07-27-2024 Glomerular filtration rate (GFR) estimation/1.73 sq m using serum, plasma, or whole b 46 Low >60 [facility] Glucose [Mass/Vol]Ordered By : Devon Reagan on 07-27-2024 Serum glucose measurement (mass/volume) 84 mg/dL 70-99 [facility] H AND P Exam - Hospitaliston 07-27-2024 H&P Exam - Hospitalist Normal [facility] Hematocrit Auto (Bld) [Volum e fraction]Ordered By: Devon Reagan on 07-27-2024 Automated blood hematocrit (percentage) 38.4 % Low 40-54 [facility] Hemoglobin measurementOrdere d By: Devon Mottat on 07-27-2024 Hemoglobin measurement 13.5 g/dL 13.0-16.5 [facility] Immature granulocytes/100 WB C Auto (Bld)Ordered By: Devon [facility] on 07-27-2024 Automated immature granulocyte percentage 0.300 % 0.0-0.9 [facility] Ketones Test strip Ql (U)Ord ered By: Devonjose Mottat on 07-27-2024 Ketones Ql (U) 5 mg/dl High Negative [facility] Urine ketones detection by test strip 5 mg/dl High Negative [facility] Lactic Acidon 07-27-2024 Lactate [Moles/Vol] 1.9 mmol/L Normal 0.0-2.0 [facility] Comment on above: Order Comment: Y Performed By: #### L 503.6005 ####[facility] [address] [place], [place], [phone] Lactate [Moles/Vol] 4.8 mmol/L Invalid Interpretation Code 0.0-2.0 [facility] Comment on above: Order Comment: Y Result Comment: Crit ical Result(s) Called at 1424 : by: NANO PANTOJA. ??Results read back by same. Performed By: #### L 503.6005 ####[facility] [address] [facility] [place], [address] Lactate [Moles/Vol] 4.1 mmol/L Invalid Interpretation Code 0.0-2.0 [facility] Comment on above: Order Comment: Y Result Comment: Crit ical Result(s) Called at 1121: by: NANO MCCORMICK.??Results read back by same.Critical Result(s) Called at: by:??Results read back bygeneral [facility]. AMENDED REPORT 07/27/24 1134 LACTIC ACID previously reported as: 4.1 *H mmol/LCritical Result(s) Called at 1121: by: NANO BOWSERGEISINGER MEDICAL CENTERLEDA.??Results read back by same. Performed By: #### L 503.6005, L501.2450, L100.0100, L500.4050 ####[facility] [address] [place], [place], [id number] Lactic acid measurementOrder ed By: Tiki Saldivar on 07-27-2024 Lactic acid measurement 1.9 mmol/L 0.0-2.0 [facility] [facility] Lactic acid measurementOrder ed By: Devon Reagan on 07-27-2024 Lactic acid measurement 4.8 mmol/L High 0.0-2.0 W [facility] Lipaseon 07-27-2024 Lipase [Catalytic activity/Vol] 47 U/L Normal 13-75 [facility] Comment on above: Result Comment: José cuellar note:LIPASE revised reference range effective 22.New Lipase methodology. Expected to produce lower valuesthan the previous assay method.NEW Reference Range: 13 - 75 U/L Performed By: #### L 503.6005, L501.2450, L100.0100, L500.4050 ####[facility] [address] [place], [place], [address] Lipase measurementOrdered By : Devon Reagan on 07-27-2024 Lipase measurement 47 U/L 13-75 [facility] Lower GI hemoglobin IA Ql (S tl)Ordered By: Devon Reagan on 07-27-2024 Stool gastrointestinal hemoglobin detection by immunologic method Positive Abnormal [facility] Lymphocytes Auto (Unsp spec) [#/Vol]Ordered By: Devon Reagan on 07-27-2024 Absolute lymphocyte count 1.02 X10^3/uL 0.83-4.51 [facility] Lymphocytes/100 WBC Auto (Un sp spec)Ordered By: Devon Reagan on 07-27-2024 Automated lymphocyte count as percentage of total leukocytes 13.4 % Low 19-41 [facility] MCV (RBC) [Entitic vol]Order ed By: Devon Reagan on 07-27-2024 MCV (mean corpuscular volume) determination 93.4 fL 80-94 [facility] Mean corpuscular hemoglobin (MCH) determinationOrdered By: Devon Reagan on 07-27-2024 Mean corpuscular hemoglobin (MCH) determination 32.8 pg High 27.0-32.0 [facility] Mean corpuscular hemoglobin concentration (MCHC) determinationOrdered By: Devon Reagan on 07-27-2024 Mean corpuscular hemoglobin concentration (MCHC) determination 35.2 g/dL 32-36 [facility] Mean platelet volume determi nationOrdered By: Devon Reagan on 07-27-2024 Mean platelet volume determination 9.9 fl 6.2-12.0 [facility] Measurement, pHOrdered By: Aquilino Saldivar on 07-27-2024 pH (Unsp spec) 7.45 [pH] 7.35-7.45 [facility] Monocyte percentageOrdered B y: Devon Reagan on 07-27-2024 Monocyte percentage 5.5 % 0-10 [facility] Mucus LM Ql (Urine sed)Order ed By: Devon Reagan on 07-27-2024 Mucus Ql (Urine sed) 0 SEEN /hpf [facility] Neutrophil percentageOrdered By: Devon Reagan on 07-27-2024 Neutrophil percentage 73.6 % High 47-70 [facility] Nitrite Test strip Ql (U)Ord ered By: Devon Reagan on 07-27-2024 Nitrite Ql (U) Negative Negative [facility] No Panel InformationOrdered By: Tiki Saldivar on 07-27-2024 ART [facility] L Radial [facility] Not entered [facility] Room Air [facility] See comment [facility] No Panel InformationOrdered By: Devon Reagan on 07-27-2024 27 U/L <38 [facility] Nucleated red blood cell per centageOrdered By: Devon Reagan on 07-27-2024 Nucleated red blood cell percentage 0 % 0-5 [facility] Oxygen (BldV) [Partial press ure]Ordered By: Tiki Saldivar on 07-27-2024 Venous blood partial pressure of oxygen measurement 31 mmHg 25-40 [facility] Oxygen saturation measuremen tOrdered By: Tiki Saldivar on 07-27-2024 Oxygen saturation measurement 94 % Low 95-99 [facility] Partial pressure of carbon d ioxide measurementOrdered By: Tiki Saldivar on 07-27-2024 Partial pressure of carbon dioxide measurement 32.4 mmHg Low 35-45 [facility] Partial pressure of oxygen m easurementOrdered By: Tiki Saldivar on 07-27-2024 Partial pressure of oxygen measurement 68 mmHG Low 75-100 [facility] Platelet countOrdered By: Asael Reagan on 07-27-2024 Platelet count 380 K/mm3 150-450 [facility] Potassium (Unsp spec) [Mass/ Vol]Ordered By: Devon Reagan on 07-27-2024 Potassium measurement (mass/volume) 3.2 mmol/L Low 3.3-5.1 [facility] Protein Test strip Ql (U)Ord ered By: Devon Reagan on 07-27-2024 Protein Ql (U) 15 mg/dl High Negative [facility] Urine protein assay by test strip, semi-quantitative 15 mg/dl High Negative [facility] RBC Auto (Bld) [#/Vol]Ordere d By: Devon Reagan on 07-27-2024 Automated blood erythrocyte count 4.11 M/mm3 Low 4.6-6.2 [facility] Serum globulin measurementOr dered By: Devon Reagan on 07-27-2024 Serum globulin measurement 2.2 g/dL 2.2-4.2 [facility] Serum or plasma ethanol jenna urement (mass/volume)Ordered By: Devon Quintero on 07-27-2024 Ethanol [Mass/Vol] 127.0 mg/dL High <10.1 [facility] Sodium levelOrdered By: Moncho Reagan on 07-27-2024 Sodium level 143 mmol/L 133-145 [facility] Specific gravity (U) [Rel de nsity]Ordered By: Devon Reagan on 07-27-2024 Urine specific gravity measurement 1.015 1.002-1.030 [facility] Squamous epithelial cells de tection in urine sediment by light microscopyOrdered By: Devon Reagan on 07-27-2024 Epithelial cells.squamous LM Ql (Urine sed) 0 SEEN /hpf 0-5 [facility] Stool Occult Blood iFOBon STOB Positive Normal [facility] Comment on above: Performed By: #### M 100.7900 ####[facility] [address] [place], [address] Stool gastrointestinal hemog lobin detection by immunologic methodOrdered By: Devon Reagan on 07-27-2024 Lower GI hemoglobin IA Ql (Stl) Positive Abnormal [facility] Total carbon dioxide measure mentOrdered By: Tiki Saldivar on 07-27-2024 CO2 [Moles/Vol] 23 mmol/L [facility] Total carbon dioxide measurement 23 mmol/L [facility] Total proteinOrdered By: Kevin Reagan on 07-27-2024 Total protein 6.5 g/dL 5.9-8.4 [facility] Urea nitrogen [Mass/Vol]Orde red By: Devon Reagan on 07-27-2024 Serum or plasma urea nitrogen measurement (mass/volume) 33 mg/dL High 4-19 [facility] Urinalysis, Completeon 07-27 RBC 0 SEEN Normal 0-5 [facility] Comment on above: Order Comment: ESTRELLA CTOR TO SPECIFY Performed By: #### L 400.0001 ####[facility] [address] [place], [place], [id number] BACTERIA 0 SEEN Normal None Seen [facility] Comment on above: Order Comment: ESTRELLA CTOR TO SPECIFY Performed By: #### L 400.0001 ####[facility] [address] [place], [place], [id number] EPI,SQUAMOUS 0 SEEN Normal 0-5 [facility] Comment on above: Order Comment: ESTRELLA CTOR TO SPECIFY Performed By: #### L 400.0001 ####[facility] [address] [place], [place], [id number] Mucus Ql (Urine sed) 0 SEEN Normal [facility] Comment on above: Order Comment: ESTRELLA CTOR TO SPECIFY Performed By: #### L 400.0001 ####[facility] [address] [place], [address] WBC 0 SEEN Normal 0-5 [facility] Comment on above: Order Comment: ESTRELLA CTOR TO SPECIFY Performed By: #### L 400.0001 ####[facility] [address] [place], [place], [id number] Urine clarityOrdered By: Kevin Reagan on 07-27-2024 Clarity (U) Clear Clear [facility] Urine color determinationOrd ered By: Devon Reagan on 07-27-2024 Color (U) Yellow Yellow [facility] Urine glucose detectionOrder ed By: Devon Reagan on 07-27-2024 Glucose Ql (U) Normal mg/dl Normal [facility] Urine glucose detection Normal mg/dl Normal [facility] Urine leukocyte esterase det ection by dipstickOrdered By: Devon Reagan on 07-27-2024 Leukocyte esterase Test strip Ql (U) Negative Negative [facility] Urine pHOrdered By: Devon Onofre on 07-27-2024 pH (U) 6.0 [pH] 5.0 - 8.0 [facility] Urine sediment bacteria coun t by microscopy (number/high power field)Ordered By: Devon Reagan on 07-27-2024 Bacteria LM.HPF (Urine sed) [#/Area] 0 /[HPF] None Seen [facility] Urine specific gravity measu rementOrdered By: Devon Reagan on 07-27-2024 Specific gravity (U) [Rel density] 1.015 1.002-1.030 [facility] Urine total bilirubin detect ion by test stripOrdered By: Devon Reagan on 07-27-2024 Urine total bilirubin detection by test strip Negative Negative [facility] Urine urobilinogen measureme ntOrdered By: Devon Reagan on 07-27-2024 Urobilinogen Ql (U) Normal mg/dl Normal [facility] Venous Blood Gason Blood Gas Type STEPHANIE Normal [facility] Comment on above: Performed By: #### L 9000.0810 ####[facility] [address] [place], [address] CO2 [Moles/Vol] 23 mmol/L Normal 23-33 [facility] Comment on above: Performed By: #### L 9000.0810 ####[facility] [address] 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 Performed By: #### L 900.0810 ####[facility] [address] [place], [address] FI02 21.0 Normal [facility] Comment on above: Performed By: #### L 9000.0810 ####[facility] [address] [place], [address] HCO3 (Bld) [Moles/Vol] 22 mmol/L Normal 22-26 [facility] Comment on above: Performed By: #### L 9000.0810 ####[facility] [address] [place], [address] O2 Delivery Dev Not entered Normal [facility] Comment on above: Performed By: #### L 9000.0810 ####[facility] [address] [place], [address] SITE vein Normal [facility] Comment on above: Performed By: #### L 9000.0810 ####[facility] [address] [place], [address] VBG BE -2 mmol/L Low -1.0-3.5 [facility] Comment on above: Performed By: #### L 9000.0810 ####[facility] [address] [place], [address] VBG pCO2 28.1 mmHg Low 41-51 [facility] Comment on above: Performed By: #### L 9000.0810 ####[facility] [address] [place], [address] VBG pH 7.50 High 7.32-7.42 [facility] Comment on above: Performed By: #### L 9000.0810 ####[facility] [address] [place], [address] VBG PO2 31 mmHg Normal 25-40 [facility] Comment on above: Performed By: #### L 9000.0810 ####[facility] [address] [place], [address] VBG SO2 67 Normal 50-70 [facility] Comment on above: Performed By: #### L 9000.0810 ####[facility] [address] [place], [address] Venous blood base excess tianna surementOrdered By: Tiki Saldivar on 07-27-2024 Base excess Calc (BldV) [Moles/Vol] -2 mmol/L Low -1.0-3.5 [facility] Venous blood bicarbonate tianna surementOrdered By: Tiki Saldivar on 07-27-2024 HCO3 (Bld) [Moles/Vol] 22 mmol/L - [facility] Venous blood bicarbonate measurement 22 mmol/L [facility] Venous blood oxygen saturati on measurementOrdered By: Tiki Saldivar on 07-27-2024 Venous blood oxygen saturation measurement 67 % 50-70 [facility] Venous blood pH measurementO rdered By: Tiki Saldivar on 07-27-2024 pH (BldV) 7.50 [pH] High 7.32-7.42 [facility] Venous blood partial pressur e of carbon dioxide measurementOrdered By: Tiki Saldivar on 07-27-2024 CO2 (BldV) [Partial pressure] 28.1 mm[Hg] Low 41-51 [facility] Venous blood partial pressur e of oxygen measurementOrdered By: Tiki Saldivar on 07-27-2024 Oxygen (BldV) [Partial pressure] 31 mm[Hg] 25-40 [facility] White blood cell (WBC) count Ordered By: Devon Reagan on 07-27-2024 White blood cell (WBC) count 7.6 K/mm3 4.4-11.0 [facility] White blood cell countOrdere d By: Devon Reagan on 07-27-2024 White blood cell count 0 SEEN /hpf 0-5 W [facility] White blood cell count 0 SEEN /hpf W [facility] pH (BldV)Ordered By: Tiki craig on 07-27-2024 Venous blood pH measurement 7.50 High 7.32-7.42 [facility] pH (U)Ordered By: Devon Royal on 07-27-2024 Urine pH 6.0 5.0 - 8.0 [facility] pH (Unsp spec)Ordered By: Flora Saldivar on 07-27-2024 Measurement, pH 7.45 7.35-7.45 [facility] Absolute lymphocyte countOrd ered By: Nanette Macdonald on 07-26-2024 Lymphocytes Auto (Unsp spec) [#/Vol] 1.15 10*3/uL 0.83-4.51 [facility] Absolute neutrophil countOrd ered By: Nanette Macdonald on 07-26-2024 Absolute neutrophil count 5.3 X10^3/uL 2.0-7.7 [facility] Anion gap [Moles/Vol]Ordered By: Spenser Sanchez on 07-26-2024 Anion gap in Serum or Plasma 16 High 5-15 [facility] Anion gap in Serum or Plasma Ordered By: Spenser Sanchez on 07-26-2024 Anion gap [Moles/Vol] 16 mmol/L High 5-15 [facility] Automated lymphocyte count a s percentage of total leukocytesOrdered By: Nanette Macdonald on 07-26-2024 Lymphocytes/100 WBC Auto (Unsp spec) 15.3 % Low 19-41 [facility] BUN/creatinine ratioOrdered By: Spenser Sanchez on 07-26-2024 Urea nitrogen/Creatinine [Mass ratio] 19.8 mg/mg - [facility] BUN/creatinine ratio 19.8 RATIO 10- [facility] Basic Metabolic Profile (BMP )on 07-26-2024 BUN/CRE 19.8 RATIO Normal - [facility] Comment on above: Performed By: #### L 500.2500 ####[facility] [address] [place], [address] Calcium [Mass/Vol] 9.8 mg/dL Normal 7.6-11.0 [facility] Comment on above: Performed By: #### L 500.2500 ####[facility] [address] [place], [address] Chloride [Moles/Vol] 101 mmol/L Normal 98-108 [facility] Comment on above: Performed By: #### L 500.2500 ####[facility] [address] [place], [address] CO2 [Moles/Vol] 25.6 mmol/L Normal 21.0-32.0 [facility] Comment on above: Performed By: #### L 500.2500 ####[facility] [address] [place], [address] Creatinine [Mass/Vol] 1.50 mg/dL High 0.70-1.20 [facility] Comment on above: Performed By: #### L 500.2500 ####[facility] [address] [place], [address] GAP 16 High 5-15 [facility] Comment on above: Performed By: #### L 500.2500 ####[facility] [address] [place], [address] GFR/1.73 sq M.predicted among non-blacks MDRD (S/P/Bld) [Vol rate/Area] 47 mL/min/{1.73_m2} Low >60 [facility] Comment on above: Result Comment: mL/m in/1.73m2 CKD-EPI Creatinine Equation (2020) Performed By: #### L 500.2500 ####[facility] [address] [place], [address] Glucose [Mass/Vol] 93 mg/dL Normal 70-99 [facility] Comment on above: Performed By: #### L 500.2500 ####[facility] [address] [place], [address] Potassium [Moles/Vol] 3.3 mmol/L Normal 3.3-5.1 [facility] Comment on above: Performed By: #### L 500.2500 ####[facility] [address] [place], [address] Sodium [Moles/Vol] 142 mmol/L Normal 133-145 [facility] Comment on above: Performed By: #### L 500.2500 ####[facility] [address] [place], [address] Urea nitrogen [Mass/Vol] 30 mg/dL High 4-19 [facility] Comment on above: Performed By: #### L 500.2500 ####[facility] [address] [place], [address] Basophil percentageOrdered B y: Nanette Macdonald on 07-26-2024 Basophils/100 WBC (Bld) 1.3 % High 0-1 [facility] Basophil percentage 1.3 % High 0-1 [facility] CBC W/Diff, Automatedon - Absolute Lymph 1.15 X10 3/uL Normal 0.83-4.51 [facility] Comment on above: Performed By: #### L 100.0100 ####[facility] [address] [place], [address] Absolute Neut 5.3 X10 3/uL Normal 2.0-7.7 [facility] Comment on above: Performed By: #### L 100.0100 ####[facility] [address] [place], [address] Basophils/100 WBC (Bld) 1.3 % High 0-1 [facility] Comment on above: Performed By: #### L 100.0100 ####[facility] [address] [place], [address] Eosinophils/100 WBC (Bld) 6.0 % High 0-5 [facility] Comment on above: Performed By: #### L 100.0100 ####[facility] [address] [place], [address] Erythrocyte distribution width (RBC) [Ratio] 12.2 % Normal 11.6-14.6 [facility] Comment on above: Performed By: #### L 100.0100 ####[facility] [address] [place], [address] Hematocrit (Bld) [Volume fraction] 40.6 % Normal 40-54 [facility] Comment on above: Performed By: #### L 100.0100 ####[facility] [address] [place], [address] Hemoglobin (Bld) [Mass/Vol] 14.0 g/dL Normal 13.0-16.5 [facility] Comment on above: Performed By: #### L 100.0100 ####[facility] [address] [place], [address] IG% 0.400 Normal 0.0-0.9 [facility] Comment on above: Result Comment: IG% - Immature Granulocytes (promyelocytes, myelocytes andmetamyelocytes) > 1% indicates that a LEFT SHIFT is Present. Performed By: #### L 100.0100 ####[facility] [address] [place], [address] Lymphocytes/100 WBC (Bld) 15.3 % Low 19-41 [facility] Comment on above: Performed By: #### L 100.0100 ####[facility] [address] [place], [address] MCH (RBC) [Entitic mass] 32.5 pg High 27.0-32.0 [facility] Comment on above: Performed By: #### L 100.0100 ####[facility] [address] [place], [address] MCHC (RBC) [Mass/Vol] 34.5 g/dL Normal 32-36 [facility] Comment on above: Performed By: #### L 100.0100 ####[facility] [address] [place], [address] MCV (RBC) [Entitic vol] 94.2 fL High 80-94 [facility] Comment on above: Performed By: #### L 100.0100 ####[facility] [address] [place], [address] Monocytes/100 WBC (Bld) 6.4 % Normal 0-10 [facility] Comment on above: Performed By: #### L 100.0100 ####[facility] [address] [place], [address] Neutrophils/100 WBC (Bld) 70.6 % High 47-70 [facility] Comment on above: Performed By: #### L 100.0100 ####[facility] [address] [place], [address] Nucleated RBC (Bld) [#/Vol] 0 10*3/uL Normal 0-5 [facility] Comment on above: Performed By: #### L 100.0100 ####[facility] [address] [place], [address] Platelet mean volume (Bld) [Entitic vol] 10.5 fL Normal 6.2-12.0 [facility] Comment on above: Performed By: #### L 100.0100 ####[facility] [address] [place], [address] Platelets (Bld) [#/Vol] 380 10*3/uL Normal 150-450 [facility] Comment on above: Performed By: #### L 100.0100 ####[facility] [address] [place], [address] RBC (Bld) [#/Vol] 4.31 10*6/uL Low 4.6-6.2 [facility] Comment on above: Performed By: #### L 100.0100 ####[facility] [address] [place], [address] RDW SD 42.5 fl Normal 35.1-43.9 [facility] Comment on above: Performed By: #### L 100.0100 ####[facility] [address] [place], [address] WBC (Bld) [#/Vol] 7.5 10*3/uL Normal 4.4-11.0 [facility] Comment on above: Performed By: #### L 100.0100 ####[facility] [address] [place], [address] Calcium [Mass/Vol]Ordered By : Spenser Sanchez on 07-26-2024 Serum or plasma calcium measurement (mass/volume) 9.8 mg/dL 7.6-11.0 [facility] Carbon dioxide, total [Moles /volume] in Central venous bloodOrdered By: Spenser Sanchez on 07-26-2024 CO2 [Moles/Vol] 25.6 mmol/L 21.0-32.0 [facility] Carbon dioxide, total [Moles/volume] in Central venous blood 25.6 mmol/L 21.0-32.0 [facility] Chloride assayOrdered By: Olaf Sanchez on 07-26-2024 Chloride [Moles/Vol] 101 mmol/L 98-108 [facility] Chloride assay 101 mmol/L 98-108 [facility] Creatinine [Mass/Vol]Ordered By: Spenser Sanchez on 07-26-2024 Serum creatinine measurement (mass/volume) 1.50 mg/dL High 0.70-1.20 [facility] Eosinophil percentageOrdered By: Nanette Macdonald on 07-26-2024 Eosinophils/100 WBC (Bld) 6.0 % High 0-5 [facility] Eosinophil percentage 6.0 % High 0-5 [facility] Erythrocyte distribution wid th (RBC) [Ratio]Ordered By: Nanette Macdonald on 07-26-2024 Erythrocyte distribution width ratio 12.2 % 11.6-14.6 [facility] Erythrocyte distribution wid th ratioOrdered By: Nanette Macdonald on 07-26-2024 Erythrocyte distribution width (RBC) [Ratio] 12.2 % 11.6-14.6 [facility] Erythrocyte distribution wid th standard deviationOrdered By: Nanette Macdonald on 07-26-2024 Erythrocyte distribution width (RBC) [Ratio] 42.5 fl 35.1-43.9 [facility] Erythrocyte distribution width standard deviation 42.5 fl 35.1-43.9 [facility] GFR/1.73 sq M.predicted giorgi g non-blacks MDRD (S/P/Bld) [Vol rate/Area]Ordered By: Spenser Sanchez on 07-26-2024 Glomerular filtration rate (GFR) estimation/1.73 sq m using serum, plasma, or whole b 47 Low >60 [facility] Glomerular filtration rate ( GFR) estimation/1.73 sq m using serum, plasma, or whole bOrdered By: Spenser Sanchez on 07-26-2024 GFR/1.73 sq M.predicted among non-blacks MDRD (S/P/Bld) [Vol rate/Area] 47 mL/min/{1.73_m2} Low >60 [facility] Glucose [Mass/Vol]Ordered By : Spenser Sanchez on 07-26-2024 Serum glucose measurement (mass/volume) 93 mg/dL 70-99 [facility] Hematocrit Auto (Bld) [Volum e fraction]Ordered By: Nanette Macdonald on 07-26-2024 Hematocrit (Bld) [Volume fraction] 40.6 % 40-54 [facility] Automated blood hematocrit (percentage) 40.6 % 40-54 [facility] Hemoglobin measurementOrdere d By: Nanette Macdonald on 07-26-2024 Hemoglobin (Bld) [Mass/Vol] 14.0 g/dL 13.0-16.5 [facility] Hemoglobin measurement 14.0 g/dL 13.0-16.5 [facility] Immature granulocytes/100 WB C Auto (Bld)Ordered By: Nanette Macdonald on 07-26-2024 Immature granulocytes/100 WBC (Bld) 0.400 % 0.0-0.9 [facility] Automated immature granulocyte percentage 0.400 % 0.0-0.9 [facility] Lymphocytes Auto (Unsp spec) [#/Vol]Ordered By: Nanette Macdonald on 07-26-2024 Absolute lymphocyte count 1.15 X10^3/uL 0.83-4.51 [facility] Lymphocytes/100 WBC Auto (Un sp spec)Ordered By: Nanette Macdonald on 07-26-2024 Automated lymphocyte count as percentage of total leukocytes 15.3 % Low 19-41 [facility] MCV (RBC) [Entitic vol]Order ed By: Nanette Macdonald on 07-26-2024 MCV (mean corpuscular volume) determination 94.2 fL High 80-94 [facility] MCV (mean corpuscular volume ) determinationOrdered By: Nanette Macdonald on 07-26-2024 MCV (RBC) [Entitic vol] 94.2 fL High 80-94 [facility] Mean corpuscular hemoglobin (MCH) determinationOrdered By: Nanette Macdonald on 07-26-2024 MCH (RBC) [Entitic mass] 32.5 pg High 27.0-32.0 [facility] Mean corpuscular hemoglobin (MCH) determination 32.5 pg High 27.0-32.0 [facility] Mean corpuscular hemoglobin concentration (MCHC) determinationOrdered By: Nanette Macdonald on 07-26-2024 Mean corpuscular hemoglobin concentration (MCHC) determination 34.5 g/dL 32-36 [facility] Mean platelet volume determi nationOrdered By: Nanette Macdonald on 07-26-2024 Mean platelet volume determination 10.5 fl 6.2-12.0 [facility] Monocyte percentageOrdered B y: Nanette Macdonald on 07-26-2024 Monocytes/100 WBC (Bld) 6.4 % 0-10 [facility] Monocyte percentage 6.4 % 0-10 [facility] Neutrophil percentageOrdered By: Nanette Macdonald on 07-26-2024 Neutrophils/100 WBC (Bld) 70.6 % High 47-70 [facility] Neutrophil percentage 70.6 % High 47-70 [facility] Nucleated red blood cell per centageOrdered By: Nanette Macdonald on 07-26-2024 Nucleated red blood cell percentage 0 % 0-5 [facility] Platelet countOrdered By: Serjio Macdonald on 07-26-2024 Platelets (Bld) [#/Vol] 380 10*3/uL 150-450 [facility] Platelet count 380 K/mm3 150-450 [facility] Potassium (Unsp spec) [Mass/ Vol]Ordered By: Spenser Sanchez on 07-26-2024 Potassium measurement (mass/volume) 3.3 mmol/L 3.3-5.1 [facility] Potassium measurement (mass/ volume)Ordered By: Spenser Sanchez on 07-26-2024 Potassium (Unsp spec) [Mass/Vol] 3.3 mmol/L 3.3-5.1 [facility] RBC Auto (Bld) [#/Vol]Ordere d By: Nanette Macdonald on 07-26-2024 RBC (Bld) [#/Vol] 4.31 10*6/uL Low 4.6-6.2 [facility] Automated blood erythrocyte count 4.31 M/mm3 Low 4.6-6.2 [facility] Serum creatinine measurement (mass/volume)Ordered By: Spenser Sanchez on 07-26-2024 Creatinine [Mass/Vol] 1.50 mg/dL High 0.70-1.20 [facility] Serum glucose measurement (m ass/volume)Ordered By: Spenser Sanchez on 07-26-2024 Glucose [Mass/Vol] 93 mg/dL 70-99 [facility] Serum or plasma calcium jenna urement (mass/volume)Ordered By: Spenser Sanchez on 07-26-2024 Calcium [Mass/Vol] 9.8 mg/dL 7.6-11.0 [facility] Serum or plasma urea nitroge n measurement (mass/volume)Ordered By: Spenser Sanchez on 07-26-2024 Urea nitrogen [Mass/Vol] 30 mg/dL High 08-19 [facility] Sodium levelOrdered By: Quincy Sanchez on 07-26-2024 Sodium [Moles/Vol] 142 mmol/L 133-145 [facility] Sodium level 142 mmol/L 133-145 [facility] Urea nitrogen [Mass/Vol]Orde red By: Spenser Sanchez on 07-26-2024 Serum or plasma urea nitrogen measurement (mass/volume) 30 mg/dL High 08-19 [facility] White blood cell (WBC) count Ordered By: Nanette Macdonald on 07-26-2024 WBC (Bld) [#/Vol] 7.5 10*3/uL 4.4-11.0 [facility] White blood cell (WBC) count 7.5 K/mm3 4.4-11.0 [facility] Colonoscopy Reporton 025 Colonoscopy Report Normal [facility] MR/POSTOP.ANEon 07-18-2024 MR/POSTOP.ANE Normal [facility] MR/CCIQUFDE0it 07-18-2024 MR/POSTOPAN2 Normal [facility] Surgery Specimen Level Vinayak 07-18-2024 Surgery Specimen Level IV Normal [facility] Comment on above: Performed By: #### P SUIV ####[facility] [address] [place], [place], [id number] MR/PAT.ANEon 07-17-2024 MR/PAT.ANE Normal [facility] Pulmonary Visit Reporton Pulmonary Visit Report Normal [facility] Chest without Contraston Chest without Contrast Normal [facility] MR/BMS.BVSon 05-11-2024 MR/BMS.BVS Normal [facility] Abd Aortic/IVC Duplex scanon 05-04-2024 Abd Aortic/IVC Duplex scan Normal [facility] Carotid Duplex Ultrasoundon 05-04-2024 Carotid Duplex Ultrasound Normal [facility] 12 Lead EKGon 04-30-2024 12 Lead EKG Normal [facility] Absolute neutrophil countOrd ered By: Faizan Dotson on 04-30-2024 Absolute neutrophil count 8.6 X10^3/uL High 2.0-7.7 [facility] BNP (brain natriuretic pepti de measurement)Ordered By: Faizan Dotson on 04-30-2024 BNP (brain natriuretic peptide measurement) 73.3 pg/mL 0-100 [facility] BNP,B-Type NATRIURETIC PEPTI Cooper 04-30-2024 Natriuretic peptide B (Bld) [Mass/Vol] 73.3 pg/mL Normal 0-100 [facility] Comment on above: Performed By: #### L 501.4020, L503.6620, L500.2500, L100.0100 ####[facility] [address] [place], [address] Basic Metabolic Profile (BMP )on 04-30-2024 BUN/CRE 14.1 RATIO Normal 10-20 [facility] Comment on above: Order Comment: 'TROP ' Serial specimen #1, #2 or #3: 1 Performed By: #### L 501.4020, L503.6620, L500.2500, L100.0100 ####[facility] [address] [place], [address] CA,Total 9.3 mg/dL Normal 8.5-10.1 [facility] Comment on above: Order Comment: 'TROP ' Serial specimen #1, #2 or #3: 1 Performed By: #### L 501.4020, L503.6620, L500.2500, L100.0100 ####[facility] [address] [place], [address] Chloride [Moles/Vol] 106 mmol/L Normal 98-107 [facility] Comment on above: Order Comment: 'TROP ' Serial specimen #1, #2 or #3: 1 Performed By: #### L 501.4020, L503.6620, L500.2500, L100.0100 ####[facility] [address] [place], [address] CO2 [Moles/Vol] 27.0 mmol/L Normal 21.0-32.0 [facility] Comment on above: Order Comment: 'TROP ' Serial specimen #1, #2 or #3: 1 Performed By: #### L 501.4020, L503.6620, L500.2500, L100.0100 ####[facility] [address] [place], [address] Creatinine [Mass/Vol] 1.42 mg/dL High 0.70-1.30 [facility] Comment on above: Order Comment: 'TROP ' Serial specimen #1, #2 or #3: 1 Result Comment: The validity of the calculated GFR GFRAA in patients over70 years has not been determined. Clinical correlation isessential. Performed By: #### L 501.4020, L503.6620, L500.2500, L100.0100 ####[facility] [address] [place], [address] ECRCL 37.73 ml/min Normal [facility] Comment on above: Order Comment: 'TROP ' Serial specimen #1, #2 or #3: 1 Performed By: #### L 501.4020, L503.6620, L500.2500, L100.0100 ####[facility] [address] [place], [address] EST GFR - AA 62 mL/min Normal >60 [facility] Comment on above: Order Comment: 'TROP ' Serial specimen #1, #2 or #3: 1 Result Comment: Afri can [place] GFR Calc Performed By: #### L 501.4020, L503.6620, L500.2500, L100.0100 ####[facility] [address] [place], [address] GAP 8 Normal 5-15 [facility] Comment on above: Order Comment: 'TROP ' Serial specimen #1, #2 or #3: 1 Performed By: #### L 501.4020, L503.6620, L500.2500, L100.0100 ####[facility] [address] [place], [address] GFR/1.73 sq M.predicted among non-blacks MDRD (S/P/Bld) [Vol rate/Area] 51 mL/min/{1.73_m2} Low >60 [facility] Comment on above: Order Comment: 'TROP ' Serial specimen #1, #2 or #3: 1 Result Comment: Non- GFR Calc Performed By: #### L 501.4020, L503.6620, L500.2500, L100.0100 ####[facility] [address] [place], [address] Glucose [Mass/Vol] 114 mg/dL High 74-106 [facility] Comment on above: Order Comment: 'TROP ' Serial specimen #1, #2 or #3: 1 Result Comment: Fast ing Glucose result from 100 to 125 mg/dLsuggests IMPAIRED HOMEOSTASIS per A.D.A. criteria. Performed By: #### L 501.4020, L503.6620, L500.2500, L100.0100 ####[facility] [address] [place], [address] Potassium [Moles/Vol] 3.5 mmol/L Normal 3.5-5.1 [facility] Comment on above: Order Comment: 'TROP ' Serial specimen #1, #2 or #3: 1 Performed By: #### L 501.4020, L503.6620, L500.2500, L100.0100 ####[facility] [address] [place], [address] Sodium [Moles/Vol] 141 mmol/L Normal 136-145 [facility] Comment on above: Order Comment: 'TROP ' Serial specimen #1, #2 or #3: 1 Performed By: #### L 501.4020, L503.6620, L500.2500, L100.0100 ####[facility] [address] [place], [address] Urea nitrogen [Mass/Vol] 20 mg/dL High 7-18 [facility] Comment on above: Order Comment: 'TROP ' Serial specimen #1, #2 or #3: 1 Performed By: #### L 501.4020, L503.6620, L500.2500, L100.0100 ####[facility] [address] [place], [address] Basophil percentageOrdered B y: Faizan Dotson on 04-30-2024 Basophil percentage 0.5 % 0-1 [facility] Blood urea nitrogen (BUN)/cr eatinine ratioOrdered By: Faizan Dotson on 04-30-2024 Blood urea nitrogen (BUN)/creatinine ratio 14.1 RATIO 10-20 [facility] CBC W/Diff, Automatedon 04-03 Absolute Lymph 0.63 X10 3/uL Low 0.83-4.51 [facility] Comment on above: Performed By: #### L 501.4020, L503.6620, L500.2500, L100.0100 ####[facility] [address] [place], [address] Absolute Neut 8.6 X10 3/uL High 2.0-7.7 [facility] Comment on above: Performed By: #### L 501.4020, L503.6620, L500.2500, L100.0100 ####[facility] [address] [place], [address] Basophils/100 WBC (Bld) 0.5 % Normal 0-1 [facility] Comment on above: Performed By: #### L 501.4020, L503.6620, L500.2500, L100.0100 ####[facility] [address] [place], [address] Eosinophils/100 WBC (Bld) 2.7 % Normal 0-5 [facility] Comment on above: Performed By: #### L 501.4020, L503.6620, L500.2500, L100.0100 ####[facility] [address] [place], [address] Erythrocyte distribution width (RBC) [Ratio] 14.6 % Normal 11.6-14.6 [facility] Comment on above: Performed By: #### L 501.4020, L503.6620, L500.2500, L100.0100 ####[facility] [address] [place], [address] Hematocrit (Bld) [Volume fraction] 37.8 % Low 40-54 [facility] Comment on above: Performed By: #### L 501.4020, L503.6620, L500.2500, L100.0100 ####[facility] [address] [place], [address] Hemoglobin (Bld) [Mass/Vol] 12.7 g/dL Low 13.0-16.5 [facility] Comment on above: Performed By: #### L 501.4020, L503.6620, L500.2500, L100.0100 ####[facility] [address] [place], [address] IG% 0.700 Normal 0.0-0.9 [facility] Comment on above: Result Comment: IG% - Immature Granulocytes (promyelocytes, myelocytes andmetamyelocytes) > 1% indicates that a LEFT SHIFT is Present. Performed By: #### L 501.4020, L503.6620, L500.2500, L100.0100 ####[facility] [address] [place], [address] Lymphocytes/100 WBC (Bld) 6.2 % Low 19-41 [facility] Comment on above: Performed By: #### L 501.4020, L503.6620, L500.2500, L100.0100 ####[facility] [address] [place], [address] MCH (RBC) [Entitic mass] 34.5 pg High 27.0-32.0 [facility] Comment on above: Performed By: #### L 501.4020, L503.6620, L500.2500, L100.0100 ####[facility] [address] [place], [address] MCHC (RBC) [Mass/Vol] 33.6 g/dL Normal 32-36 [facility] Comment on above: Performed By: #### L 501.4020, L503.6620, L500.2500, L100.0100 ####[facility] [address] [place], [address] MCV (RBC) [Entitic vol] 102.7 fL High 80-94 [facility] Comment on above: Performed By: #### L 501.4020, L503.6620, L500.2500, L100.0100 ####[facility] [address] [place], [address] Monocytes/100 WBC (Bld) 5.9 % Normal 0-10 [facility] Comment on above: Performed By: #### L 501.4020, L503.6620, L500.2500, L100.0100 ####[facility] [address] [place], [address] Neutrophils/100 WBC (Bld) 84.0 % High 47-70 [facility] Comment on above: Performed By: #### L 501.4020, L503.6620, L500.2500, L100.0100 ####[facility] [address] [place], [address] Nucleated RBC (Bld) [#/Vol] 0 10*3/uL Normal 0-5 [facility] Comment on above: Performed By: #### L 501.4020, L503.6620, L500.2500, L100.0100 ####[facility] [address] [place], [address] Platelet mean volume (Bld) [Entitic vol] 9.0 fL Normal 6.2-12.0 [facility] Comment on above: Performed By: #### L 501.4020, L503.6620, L500.2500, L100.0100 ####[facility] [address] [place], [address] Platelets (Bld) [#/Vol] 335 10*3/uL Normal 150-450 [facility] Comment on above: Performed By: #### L 501.4020, L503.6620, L500.2500, L100.0100 ####[facility] [address] [place], [address] RBC (Bld) [#/Vol] 3.68 10*6/uL Low 4.6-6.2 [facility] Comment on above: Performed By: #### L 501.4020, L503.6620, L500.2500, L100.0100 ####[facility] [address] [place], [address] RDW SD 55.5 fl High 35.1-43.9 [facility] Comment on above: Performed By: #### L 501.4020, L503.6620, L500.2500, L100.0100 ####[facility] [address] [place], [address] WBC (Bld) [#/Vol] 10.2 10*3/uL Normal 4.4-11.0 [facility] Comment on above: Performed By: #### L 501.4020, L503.6620, L500.2500, L100.0100 ####[facility] [address] [place], [address] Calcium [Mass/Vol]Ordered By : Faizan Dotson on 04-30-2024 Serum or plasma calcium measurement (mass/volume) 9.3 mg/dL 8.5-10.1 [facility] Carbon dioxide measurementOr dered By: Faizan Dotson on 04-30-2024 Carbon dioxide measurement 27.0 mmol/L 21.0-32.0 [facility] Chest 1 View (Portable)on Chest 1 View (Portable) Normal [facility] Chloride measurementOrdered By: Faizan Dotson on 04-30-2024 Chloride measurement 106 mmol/L 98-107 [facility] Creatinine [Mass/Vol]Ordered By: Faizan Dotson on 04-30-2024 Serum or plasma creatinine measurement (mass/volume) 1.42 mg/dL High 0.70-1.30 [facility] Emergency Department Summary on 04-30-2024 Emergency Department Summary Normal [facility] Eosinophil percentageOrdered By: Faizan Dotson on 04-30-2024 Eosinophil percentage 2.7 % 0-5 [facility] Erythrocyte distribution wid th (RBC) [Ratio]Ordered By: Faizan Dotson on 04-30-2024 Erythrocyte distribution width ratio 14.6 % 11.6-14.6 [facility] Erythrocyte distribution wid th standard deviationOrdered By: Faizan Dotson on 04-30-2024 Erythrocyte distribution width standard deviation 55.5 fl High 35.1-43.9 [facility] Estimated glomerular filtrat ion rate (GFR) AmericanOrdered By: Faizan Dotson on 04-30-2024 Estimated glomerular filtration rate (GFR) 62 mL/min >60 [facility] Estimation of creatinine terry aranceOrdered By: Faizan Dotson on 04-30-2024 Estimation of creatinine clearance 37.73 ml/min [facility] Glomerular filtration rate ( GFR) estimationOrdered By: Faizan Dotson on 04-30-2024 Glomerular filtration rate (GFR) estimation 51 mL/min Low >60 [facility] Glucose measurementOrdered B y: Faizan Dotson on 04-30-2024 Glucose measurement 114 mg/dL High 74-106 [facility] Hematocrit Auto (Bld) [Volum e fraction]Ordered By: Faizan Dotson on 04-30-2024 Automated blood hematocrit (percentage) 37.8 % Low 40-54 [facility] Hemoglobin measurementOrdere d By: Faizan Dotson on 04-30-2024 Hemoglobin measurement 12.7 g/dL Low 13.0-16.5 [facility] Immature granulocytes/100 WB C Auto (Bld)Ordered By: Faizan Dotson on 04-30-2024 Automated immature granulocyte percentage 0.700 % 0.0-0.9 [facility] L501.4020on 04-30-2024 TROPONIN-I HS 8 pg/mL Normal 3.0-78.0 [facility] Comment on above: Order Comment: 'TROP ' Serial specimen #1, #2 or #3: 1 Result Comment: Plea se Note: New Test Units and Gender Specific Reference Ranges. For more information see Policy Stat Procedure [place] High Sensitivity Troponin (TNIH) and attachments. Performed By: #### L 501.4020, L503.6620, L500.2500, L100.0100 ####[facility] [address] [place], [place], [id number] Lymphocytes Auto (Unsp spec) [#/Vol]Ordered By: Faizan Dotson on 04-30-2024 Absolute lymphocyte count 0.63 X10^3/uL Low 0.83-4.51 [facility] Lymphocytes/100 WBC Auto (Un sp spec)Ordered By: Faizan Dotson on 04-30-2024 Automated lymphocyte count as percentage of total leukocytes 6.2 % Low 19-41 [facility] M100.678on 04-30-2024 M100.678 Pending SARS-CoV-2 (COVID 19) Negative INFLUENZA A Negative INFLUENZA B Negative RSV PCR Negative Normal [facility] Comment on above: Performed By: #### M 100.678 ####[facility] [address] [place], [address] MCV (RBC) [Entitic vol]Order ed By: Faizan Dotson on 04-30-2024 MCV (mean corpuscular volume) determination 102.7 fL High 80-94 [facility] Mean corpuscular hemoglobin (MCH) determinationOrdered By: Faizan Dotson on 04-30-2024 Mean corpuscular hemoglobin (MCH) determination 34.5 pg High 27.0-32.0 [facility] Mean corpuscular hemoglobin concentration (MCHC) determinationOrdered By: Faizan Dotson on 04-30-2024 Mean corpuscular hemoglobin concentration (MCHC) determination 33.6 g/dL 32-36 [facility] Mean platelet volume determi nationOrdered By: Faizan Dotson on 04-30-2024 Mean platelet volume determination 9.0 fl 6.2-12.0 [facility] Monocyte percentageOrdered B y: Faizan Dotson on 04-30-2024 Monocyte percentage 5.9 % 0-10 [facility] Neutrophil percentageOrdered By: Faizan Dotson on 04-30-2024 Neutrophil percentage 84.0 % High 47-70 [facility] Nucleated red blood cell per centageOrdered By: Faizan Dotson on 04-30-2024 Nucleated red blood cell percentage 0 % 0-5 [facility] Platelet countOrdered By: Rell Dotson on 04-30-2024 Platelet count 335 K/mm3 150-450 [facility] Potassium measurementOrdered By: Faizan Dotson on 04-30-2024 Potassium measurement 3.5 mmol/L 3.5-5.1 [facility] RBC Auto (Bld) [#/Vol]Ordere d By: Faizan Dotson on 04-30-2024 Automated blood erythrocyte count 3.68 M/mm3 Low 4.6-6.2 [facility] Serum anion gap measurementO rdered By: Faizan Dotson on 04-30-2024 Serum anion gap measurement 8 5-15 [facility] Sodium levelOrdered By: Jay Dotson on 04-30-2024 Sodium level 141 mmol/L 136-145 [facility] Troponin IOrdered By: Faizan Dotson on 04-30-2024 Troponin I 8 pg/mL 3.0-78.0 [facility] Urea nitrogen [Mass/Vol]Orde red By: Faizan Dotson on 04-30-2024 Serum or plasma urea nitrogen measurement (mass/volume) 20 mg/dL High - [facility] White blood cell (WBC) count Ordered By: Faizan Dotson on 04-30-2024 White blood cell (WBC) count 10.2 K/mm3 4.4-11.0 [facility] Office Visit Reporton 2023 Office Visit Report Normal [facility] Basic Metabolic Profile (BMP )on 04-19-2024 BUN/CRE 18.0 RATIO Normal - [facility] Comment on above: Performed By: #### L 500.2500 ####[facility] [address] [place], [address] CA,Total 9.8 mg/dL Normal 8.5-10.1 [facility] Comment on above: Performed By: #### L 500.2500 ####[facility] [address] [place], [address] Chloride [Moles/Vol] 102 mmol/L Normal 98-107 [facility] Comment on above: Performed By: #### L 500.2500 ####[facility] [address] [place], [address] CO2 [Moles/Vol] 32.0 mmol/L Normal 21.0-32.0 [facility] Comment on above: Performed By: #### L 500.2500 ####[facility] [address] [place], [address] Creatinine [Mass/Vol] 1.67 mg/dL High 0.70-1.30 [facility] Comment on above: Result Comment: The validity of the calculated GFR GFRAA in patients over70 years has not been determined. Clinical correlation isessential. Performed By: #### L 500.2500 ####[facility] [address] [place], [address] EST GFR - AA 51 mL/min Low >60 [facility] Comment on above: Result Comment: Afri can [place] GFR Calc Performed By: #### L 500.2500 ####[facility] [address] [place], [address] GAP 6 Normal 5-15 [facility] Comment on above: Performed By: #### L 500.2500 ####[facility] [address] [place], [address] GFR/1.73 sq M.predicted among non-blacks MDRD (S/P/Bld) [Vol rate/Area] 42 mL/min/{1.73_m2} Low >60 [facility] Comment on above: Result Comment: Non- GFR Calc Performed By: #### L 500.2500 ####[facility] [address] [place], [address] Glucose [Mass/Vol] 93 mg/dL Normal 74-106 [facility] Comment on above: Performed By: #### L 500.2500 ####[facility] [address] [place], [address] Potassium [Moles/Vol] 2.8 mmol/L Low 3.5-5.1 [facility] Comment on above: Performed By: #### L 500.2500 ####[facility] [address] [place], [address] Sodium [Moles/Vol] 140 mmol/L Normal 136-145 [facility] Comment on above: Performed By: #### L 500.2500 ####[facility] [address] [place], [address] Urea nitrogen [Mass/Vol] 30 mg/dL High 7-18 [facility] Comment on above: Performed By: #### L 500.2500 ####[facility] [address] [place], [address] Blood urea nitrogen (BUN)/cr eatinine ratioOrdered By: Spenser Sanchez on 04-19-2024 Blood urea nitrogen (BUN)/creatinine ratio 18.0 RATIO 10-20 [facility] Calcium [Mass/Vol]Ordered By : Spenser Sanchez on 04-19-2024 Serum or plasma calcium measurement (mass/volume) 9.8 mg/dL 8.5-10.1 [facility] Carbon dioxide measurementOr dered By: Spenser Sanchez on 04-19-2024 Carbon dioxide measurement 32.0 mmol/L 21.0-32.0 [facility] Chloride measurementOrdered By: Spenser Sanchez on 04-19-2024 Chloride measurement 102 mmol/L 98-107 [facility] Creatinine [Mass/Vol]Ordered By: Spenser Sanchez on 04-19-2024 Serum or plasma creatinine measurement (mass/volume) 1.67 mg/dL High 0.70-1.30 [facility] Estimated glomerular filtrat ion rate (GFR) AmericanOrdered By: Spenser Sanchez on 04-19-2024 Estimated glomerular filtration rate (GFR) 51 mL/min Low >60 [facility] Glomerular filtration rate ( GFR) estimationOrdered By: Spenser Sanchez on 04-19-2024 Glomerular filtration rate (GFR) estimation 42 mL/min Low >60 [facility] Glucose measurementOrdered B y: Spenser Sanchez on 04-19-2024 Glucose measurement 93 mg/dL 74-106 [facility] Internal Medicine Office Vis no 04-19-2024 Internal Medicine Office Visit Normal [facility] Potassium measurementOrdered By: Spenser Sanchez on 04-19-2024 Potassium measurement 2.8 mmol/L Low 3.5-5.1 [facility] Serum anion gap measurementO rdered By: Spenser Sanchez on 04-19-2024 Serum anion gap measurement 6 5-15 [facility] Sodium levelOrdered By: Quincy pendletondestiny Laura on 04-19-2024 Sodium level 140 mmol/L 136-145 [facility] Urea nitrogen [Mass/Vol]Orde red By: Spenser Sanchez on 04-19-2024 Serum or plasma urea nitrogen measurement (mass/volume) 30 mg/dL High 7-18 [facility] 12 Lead EKGon 04-11-2024 12 Lead EKG Normal [facility] ALP [Catalytic activity/Vol] Ordered By: Xavi Almonte on 04-11-2024 Serum or plasma alkaline phosphatase measurement 73 U/L 45-117 [facility] ALT [Catalytic activity/Vol] Ordered By: Xavi Almonte on 04-11-2024 Serum or plasma alanine aminotransferase (ALT) measurement 13 U/L Low 16-61 [facility] Absolute neutrophil countOrd ered By: Xavi Almonte on 04-11-2024 Absolute neutrophil count 8.8 X10^3/uL High 2.0-7.7 [facility] Albumin [Mass/Vol]Ordered By : Xavimonisha Almonte on 04-11-2024 Serum or plasma albumin measurement (mass/volume) 3.3 g/dL 3.2-5.0 [facility] Albumin to globulin ratioOrd ered By: Xavi Almonte on 04-11-2024 Albumin to globulin ratio 1.2 RATIO 0.9-2.4 [facility] Automated lymphocyte count a s percentage of total leukocytesOrdered By: Xavi Almonte on 04-11-2024 Automated lymphocyte count as percentage of total leukocytes 7.4 % 0-10 [facility] Basophil percentageOrdered B y: Xavi Almonte on 04-11-2024 Basophil percentage 0.7 % 0-1 [facility] Bilirubin, totalOrdered By: Xavi Almonte on 04-11-2024 Bilirubin, total 1.00 mg/dL 0.20-1.00 [facility] Blood urea nitrogen (BUN)/cr eatinine ratioOrdered By: Xavi Almonte on 04-11-2024 Blood urea nitrogen (BUN)/creatinine ratio 20.7 RATIO High 10-20 [facility] CBC W/Diff, Automatedon 04-02-2023 Absolute Lymph 0.79 X10 3/uL Low 0.83-4.51 [facility] Comment on above: Performed By: #### L 100.0100, L501.5425, L500.4050 ####[facility] [address] [place], [address] Absolute Neut 8.8 X10 3/uL High 2.0-7.7 [facility] Comment on above: Performed By: #### L 100.0100, L501.5425, L500.4050 ####[facility] [address] [place], [address] Basophils/100 WBC (Bld) 0.7 % Normal 0-1 [facility] Comment on above: Performed By: #### L 100.0100, L501.5425, L500.4050 ####[facility] [address] [place], [address] Eosinophils/100 WBC (Bld) 0.9 % Normal 0-5 [facility] Comment on above: Performed By: #### L 100.0100, L501.5425, L500.4050 ####[facility] [address] [place], [address] Erythrocyte distribution width (RBC) [Ratio] 14.8 % High 11.6-14.6 [facility] Comment on above: Performed By: #### L 100.0100, L501.5425, L500.4050 ####[facility] [address] [place], [address] Hematocrit (Bld) [Volume fraction] 38.4 % Low 40-54 [facility] Comment on above: Performed By: #### L 100.0100, L501.5425, L500.4050 ####[facility] [address] [place], [address] Hemoglobin (Bld) [Mass/Vol] 13.5 g/dL Normal 13.0-16.5 [facility] Comment on above: Performed By: #### L 100.0100, L501.5425, L500.4050 ####[facility] [address] [place], [address] IG% 0.400 Normal 0.0-0.9 [facility] Comment on above: Result Comment: IG% - Immature Granulocytes (promyelocytes, myelocytes andmetamyelocytes) > 1% indicates that a LEFT SHIFT is Present. Performed By: #### L 100.0100, L501.5425, L500.4050 ####[facility] [address] [place], [address] Lymphocytes/100 WBC (Bld) 7.4 % Low 19-41 [facility] Comment on above: Performed By: #### L 100.0100, L501.5425, L500.4050 ####[facility] [address] [place], [address] MCH (RBC) [Entitic mass] 34.5 pg High 27.0-32.0 [facility] Comment on above: Performed By: #### L 100.0100, L501.5425, L500.4050 ####[facility] [address] [place], [address] MCHC (RBC) [Mass/Vol] 35.2 g/dL Normal 32-36 [facility] Comment on above: Performed By: #### L 100.0100, L501.5425, L500.4050 ####[facility] [address] [place], [address] MCV (RBC) [Entitic vol] 98.2 fL High 80-94 [facility] Comment on above: Performed By: #### L 100.0100, L501.5425, L500.4050 ####[facility] [address] [place], [address] Monocytes/100 WBC (Bld) 7.4 % Normal 0-10 [facility] Comment on above: Performed By: #### L 100.0100, L501.5425, L500.4050 ####[facility] [address] [place], [address] Neutrophils/100 WBC (Bld) 83.2 % High 47-70 [facility] Comment on above: Performed By: #### L 100.0100, L501.5425, L500.4050 ####[facility] [address] [place], [address] Nucleated RBC (Bld) [#/Vol] 0 10*3/uL Normal 0-5 [facility] Comment on above: Performed By: #### L 100.0100, L501.5425, L500.4050 ####[facility] [address] [place], [address] Platelet mean volume (Bld) [Entitic vol] 9.3 fL Normal 6.2-12.0 [facility] Comment on above: Performed By: #### L 100.0100, L501.5425, L500.4050 ####[facility] [address] [place], [address] Platelets (Bld) [#/Vol] 325 10*3/uL Normal 150-450 [facility] Comment on above: Performed By: #### L 100.0100, L501.5425, L500.4050 ####[facility] [address] [place], [address] RBC (Bld) [#/Vol] 3.91 10*6/uL Low 4.6-6.2 [facility] Comment on above: Performed By: #### L 100.0100, L501.5425, L500.4050 ####[facility] [address] [place], [address] RDW SD 53.6 fl High 35.1-43.9 [facility] Comment on above: Performed By: #### L 100.0100, L501.5425, L500.4050 ####[facility] [address] [place], [address] WBC (Bld) [#/Vol] 10.6 10*3/uL Normal 4.4-11.0 [facility] Comment on above: Performed By: #### L 100.0100, L501.5425, L500.4050 ####[facility] [address] [place], [address] Calcium [Mass/Vol]Ordered By : Xavi Almonte on 04-11-2024 Serum or plasma calcium measurement (mass/volume) 9.4 mg/dL 8.5-10.1 [facility] Carbon dioxide measurementOr dered By: Xavi Almonte on 04-11-2024 Carbon dioxide measurement 27.0 mmol/L 21.0-32.0 [facility] Chest PA and Lateralon 04-11 Chest PA and Lateral Normal [facility] Chloride measurementOrdered By: Xavi Almonte on 04-11-2024 Chloride measurement 107 mmol/L 98-107 [facility] Comprehensive Metabolic Prof ilon 04-11-2024 Albumin [Mass/Vol] 3.3 g/dL Normal 3.2-5.0 [facility] Comment on above: Order Comment: 1Y Performed By: #### L 100.0100, L501.5425, L500.4050 ####[facility] [address] [place], [address] Albumin/Globulin [Mass ratio] 1.2 {ratio} Normal 0.9-2.4 [facility] Comment on above: Order Comment: 1Y Performed By: #### L 100.0100, L501.5425, L500.4050 ####[facility] [address] [place], [address] ALK P 73 U/L Normal 45-117 [facility] Comment on above: Order Comment: 1Y Performed By: #### L 100.0100, L501.5425, L500.4050 ####[facility] [address] [place], [address] ALT [Catalytic activity/Vol] 13 U/L Low 16-61 [facility] Comment on above: Order Comment: 1Y Performed By: #### L 100.0100, L501.5425, L500.4050 ####[facility] [address] [place], [address] AST [Catalytic activity/Vol] 17 U/L Normal 15-37 [facility] Comment on above: Order Comment: 1Y Performed By: #### L 100.0100, L501.5425, L500.4050 ####[facility] [address] [place], [address] Bilirubin [Mass/Vol] 1.00 mg/dL Normal 0.20-1.00 [facility] Comment on above: Order Comment: 1Y Result Comment: For patients on eltrombopag therapy, use of Dimension [place] TBIL is not recommended. Performed By: #### L 100.0100, L501.5425, L500.4050 ####[facility] [address] [place], [address] BUN/CRE 20.7 RATIO High 10-20 [facility] Comment on above: Order Comment: 1Y Performed By: #### L 100.0100, L501.5425, L500.4050 ####[facility] [address] [place], [address] CA,Total 9.4 mg/dL Normal 8.5-10.1 [facility] Comment on above: Order Comment: 1Y Performed By: #### L 100.0100, L501.5425, L500.4050 ####[facility] [address] [place], [address] Chloride [Moles/Vol] 107 mmol/L Normal 98-107 [facility] Comment on above: Order Comment: 1Y Performed By: #### L 100.0100, L501.5425, L500.4050 ####[facility] [address] [place], [address] CO2 [Moles/Vol] 27.0 mmol/L Normal 21.0-32.0 [facility] Comment on above: Order Comment: 1Y Performed By: #### L 100.0100, L501.5425, L500.4050 ####[facility] [address] [place], [address] Creatinine [Mass/Vol] 1.64 mg/dL High 0.70-1.30 [facility] Comment on above: Order Comment: 1Y Result Comment: The validity of the calculated GFR GFRAA in patients over70 years has not been determined. Clinical correlation isessential. Performed By: #### L 100.0100, L501.5425, L500.4050 ####[facility] [address] [place], [address] ECRCL 32.41 ml/min Normal [facility] Comment on above: Order Comment: 1Y Performed By: #### L 100.0100, L501.5425, L500.4050 ####[facility] [address] [place], [address] EST GFR - AA 52 mL/min Low >60 [facility] Comment on above: Order Comment: 1Y Result Comment: Afri can [place] GFR Calc Performed By: #### L 100.0100, L501.5425, L500.4050 ####[facility] [address] [place], [address] GAP 8 Normal 5-15 [facility] Comment on above: Order Comment: 1Y Performed By: #### L 100.0100, L501.5425, L500.4050 ####[facility] [address] [place], [address] GFR/1.73 sq M.predicted among non-blacks MDRD (S/P/Bld) [Vol rate/Area] 43 mL/min/{1.73_m2} Low >60 [facility] Comment on above: Order Comment: 1Y Result Comment: Non- GFR Calc Performed By: #### L 100.0100, L501.5425, L500.4050 ####[facility] [address] [place], [address] Globulin (S) [Mass/Vol] 2.8 g/dL Normal 2.2-4.2 [facility] Comment on above: Order Comment: 1Y Performed By: #### L 100.0100, L501.5425, L500.4050 ####[facility] [address] [place], [address] Glucose [Mass/Vol] 104 mg/dL Normal 74-106 [facility] Comment on above: Order Comment: 1Y Result Comment: Fast ing Glucose result from 100 to 125 mg/dLsuggests IMPAIRED HOMEOSTASIS per A.D.A. criteria. Performed By: #### L 100.0100, L501.5425, L500.4050 ####[facility] [address] [place], [address] Potassium [Moles/Vol] 2.9 mmol/L Low 3.5-5.1 [facility] Comment on above: Order Comment: 1Y Performed By: #### L 100.0100, L501.5425, L500.4050 ####[facility] [address] [place], [address] Sodium [Moles/Vol] 141 mmol/L Normal 136-145 [facility] Comment on above: Order Comment: 1Y Performed By: #### L 100.0100, L501.5425, L500.4050 ####[facility] [address] [place], [address] T PROT 6.1 g/dL Low 6.4-8.2 [facility] Comment on above: Order Comment: 1Y Performed By: #### L 100.0100, L501.5425, L500.4050 ####[facility] [address] [place], [address] Urea nitrogen [Mass/Vol] 34 mg/dL High 7-18 [facility] Comment on above: Order Comment: 1Y Performed By: #### L 100.0100, L501.5425, L500.4050 ####[facility] [address] [place], [address] Creatinine [Mass/Vol]Ordered By: Xavi Almonte on 04-11-2024 Serum or plasma creatinine measurement (mass/volume) 1.64 mg/dL High 0.70-1.30 [facility] Emergency Department Summary on 04-11-2024 Emergency Department Summary Normal [facility] Eosinophil percentageOrdered By: Xavi Almonte on 04-11-2024 Eosinophil percentage 0.9 % 0-5 [facility] Erythrocyte distribution wid th (RBC) [Ratio]Ordered By: Xavi Amlonte on 04-11-2024 Erythrocyte distribution width ratio 14.8 % High 11.6-14.6 [facility] Erythrocyte distribution wid th standard deviationOrdered By: Xavimonisha Almonte on 04-11-2024 Erythrocyte distribution width standard deviation 53.6 fl High 35.1-43.9 [facility] Estimated glomerular filtrat ion rate (GFR) AmericanOrdered By: Xavi Almonte on 04-11-2024 Estimated glomerular filtration rate (GFR) 52 mL/min Low >60 [facility] Estimation of creatinine terry aranceOrdered By: Xavi Almonte on 04-11-2024 Estimation of creatinine clearance 32.41 ml/min [facility] Glomerular filtration rate ( GFR) estimationOrdered By: Xavimonisha Almonte on 04-11-2024 Glomerular filtration rate (GFR) estimation 43 mL/min Low >60 [facility] Glucose measurementOrdered B y: Xaviomnisha Almonte on 04-11-2024 Glucose measurement 104 mg/dL 74-106 [facility] Hematocrit Auto (Bld) [Volum e fraction]Ordered By: Xavimonisha Almonte on 04-11-2024 Automated blood hematocrit (percentage) 38.4 % Low 40-54 [facility] Hemoglobin measurementOrdere d By: Xavimonisha Almonte on 04-11-2024 Hemoglobin measurement 13.5 g/dL 13.0-16.5 [facility] Immature granulocytes/100 WB C Auto (Bld)Ordered By: Xavimonisha Almonte on 04-11-2024 Automated immature granulocyte percentage 0.400 % 0.0-0.9 [facility] L501.4020on 04-11-2024 TROPONIN-I HS 11 pg/mL Normal 3.0-78.0 [facility] Comment on above: Result Comment: Plea se Note: New Test Units and Gender Specific Reference Ranges. For more information see Policy Stat Procedure [place] High Sensitivity Troponin (TNIH) and attachments. Performed By: #### L 501.4020 ####[facility] [address] [place], [place], [address] L501.5425on 04-11-2024 TROPONIN-I HS 11 pg/mL Normal 3.0-78.0 [facility] Comment on above: Order Comment: 1Y Result Comment: Plea se Note: New Test Units and Gender Specific Reference Ranges. For more information see Policy Stat Procedure [place] High Sensitivity Troponin (TNIH) and attachments. Performed By: #### L 100.0100, L501.5425, L500.4050 ####[facility] [address] [place], [address] Lymphocytes Auto (Unsp spec) [#/Vol]Ordered By: Xavi Almonte on 04-11-2024 Absolute lymphocyte count 0.79 X10^3/uL Low 0.83-4.51 [facility] MCV (RBC) [Entitic vol]Order ed By: Xavi Almonte on 04-11-2024 MCV (mean corpuscular volume) determination 98.2 fL High 80-94 [facility] Mean corpuscular hemoglobin (MCH) determinationOrdered By: Xavi Almonte on 04-11-2024 Mean corpuscular hemoglobin (MCH) determination 34.5 pg High 27.0-32.0 [facility] Mean corpuscular hemoglobin concentration (MCHC) determinationOrdered By: Xavi Almonte on 04-11-2024 Mean corpuscular hemoglobin concentration (MCHC) determination 35.2 g/dL 32-36 [facility] Mean platelet volume determi nationOrdered By: Xavi Almonte on 04-11-2024 Mean platelet volume determination 9.3 fl 6.2-12.0 [facility] Neutrophil percentageOrdered By: Xavi Almonte on 04-11-2024 Neutrophil percentage 83.2 % High 47-70 [facility] No Panel InformationOrdered By: Xavi Almonte on 04-11-2024 17 U/L 15-37 [facility] Nucleated red blood cell per centageOrdered By: Xavi Almonte on 04-11-2024 Nucleated red blood cell percentage 0 % 0-5 [facility] Platelet countOrdered By: Ug monisha Mejiao on 04-11-2024 Platelet count 325 K/mm3 150-450 [facility] Potassium measurementOrdered By: Xavi Almonte on 04-11-2024 Potassium measurement 2.9 mmol/L Low 3.5-5.1 [facility] RBC Auto (Bld) [#/Vol]Ordere d By: Xavi Almonte on 04-11-2024 Automated blood erythrocyte count 3.91 M/mm3 Low 4.6-6.2 [facility] Serum anion gap measurementO rdered By: Xavi Almonte on 04-11-2024 Serum anion gap measurement 8 5-15 [facility] Serum globulin measurementOr dered By: Xavi Almonte on 04-11-2024 Serum globulin measurement 2.8 g/dL 2.2-4.2 [facility] Sodium levelOrdered By: Xavi Almonte on 04-11-2024 Sodium level 141 mmol/L 136-145 [facility] Total proteinOrdered By: Xavi Almonte on 04-11-2024 Total protein 6.1 g/dL Low 6.4-8.2 [facility] Troponin IOrdered By: Xavi Ga llo on 04-11-2024 Troponin I 11 pg/mL 3.0-78.0 [facility] Urea nitrogen [Mass/Vol]Orde red By: Xavi Almonte on 04-11-2024 Serum or plasma urea nitrogen measurement (mass/volume) 34 mg/dL High 7-18 [facility] White blood cell (WBC) count Ordered By: Xavi Almonte on 04-11-2024 White blood cell (WBC) count 10.6 K/mm3 4.4-11.0 [facility] Absolute neutrophil countOrd ered By: Nanette Macdonald on 03-23-2024 Absolute neutrophil count 6.7 X10^3/uL 2.0-7.7 [facility] Basophil percentageOrdered B y: Nanette Macdonald on 03-23-2024 Basophil percentage 0.8 % 0-1 [facility] CBC W/Diff, Automatedon 03-04 Absolute Lymph 1.28 X10 3/uL Normal 0.83-4.51 [facility] Comment on above: Performed By: #### L 100.0100 ####[facility] [address] [place], [address] Absolute Neut 6.7 X10 3/uL Normal 2.0-7.7 [facility] Comment on above: Performed By: #### L 100.0100 ####[facility] [address] [place], [address] Basophils/100 WBC (Bld) 0.8 % Normal 0-1 [facility] Comment on above: Performed By: #### L 100.0100 ####[facility] [address] [place], [address] Eosinophils/100 WBC (Bld) 1.3 % Normal 0-5 [facility] Comment on above: Performed By: #### L 100.0100 ####[facility] [address] [place], [address] Erythrocyte distribution width (RBC) [Ratio] 14.6 % Normal 11.6-14.6 [facility] Comment on above: Performed By: #### L 100.0100 ####[facility] [address] [place], [address] Hematocrit (Bld) [Volume fraction] 41.0 % Normal 40-54 [facility] Comment on above: Performed By: #### L 100.0100 ####[facility] [address] [place], [address] Hemoglobin (Bld) [Mass/Vol] 13.8 g/dL Normal 13.0-16.5 [facility] Comment on above: Performed By: #### L 100.0100 ####[facility] [address] [place], [address] IG% 0.300 Normal 0.0-0.9 [facility] Comment on above: Result Comment: IG% - Immature Granulocytes (promyelocytes, myelocytes andmetamyelocytes) > 1% indicates that a LEFT SHIFT is Present. Performed By: #### L 100.0100 ####[facility] [address] [place], [address] Lymphocytes/100 WBC (Bld) 14.3 % Low 19-41 [facility] Comment on above: Performed By: #### L 100.0100 ####[facility] [address] [place], [address] MCH (RBC) [Entitic mass] 33.3 pg High 27.0-32.0 [facility] Comment on above: Performed By: #### L 100.0100 ####[facility] [address] [place], [address] MCHC (RBC) [Mass/Vol] 33.7 g/dL Normal 32-36 [facility] Comment on above: Performed By: #### L 100.0100 ####[facility] [address] [place], [address] MCV (RBC) [Entitic vol] 99.0 fL High 80-94 [facility] Comment on above: Performed By: #### L 100.0100 ####[facility] [address] [place], [address] Monocytes/100 WBC (Bld) 8.4 % Normal 0-10 [facility] Comment on above: Performed By: #### L 100.0100 ####[facility] [address] [place], [address] Neutrophils/100 WBC (Bld) 74.9 % High 47-70 [facility] Comment on above: Performed By: #### L 100.0100 ####[facility] [address] [place], [address] Nucleated RBC (Bld) [#/Vol] 0 10*3/uL Normal 0-5 [facility] Comment on above: Performed By: #### L 100.0100 ####[facility] [address] [place], [address] Platelet mean volume (Bld) [Entitic vol] 10.0 fL Normal 6.2-12.0 [facility] Comment on above: Performed By: #### L 100.0100 ####[facility] [address] [place], [address] Platelets (Bld) [#/Vol] 401 10*3/uL Normal 150-450 [facility] Comment on above: Performed By: #### L 100.0100 ####[facility] [address] [place], [address] RBC (Bld) [#/Vol] 4.14 10*6/uL Low 4.6-6.2 [facility] Comment on above: Performed By: #### L 100.0100 ####[facility] [address] [place], [address] RDW SD 53.2 fl High 35.1-43.9 [facility] Comment on above: Performed By: #### L 100.0100 ####[facility] [address] [place], [address] WBC (Bld) [#/Vol] 8.9 10*3/uL Normal 4.4-11.0 [facility] Comment on above: Performed By: #### L 100.0100 ####[facility] [address] [place], [address] Eosinophil percentageOrdered By: Nanette Macdonald on 03-23-2024 Eosinophil percentage 1.3 % 0-5 [facility] Erythrocyte distribution wid th (RBC) [Entitic vol]Ordered By: Nanette Macdonald on 03-23-2024 Erythrocyte distribution width standard deviation 53.2 fl High 35.1-43.9 [facility] Erythrocyte distribution wid th (RBC) [Ratio]Ordered By: Nanette Macdonald on 03-23-2024 Erythrocyte distribution width ratio 14.6 % 11.6-14.6 [facility] Hematocrit Auto (Bld) [Volum e fraction]Ordered By: Nanette Macdonald on 03-23-2024 Automated blood hematocrit (percentage) 41.0 % 40-54 [facility] Hemoglobin measurementOrdere d By: Nanette Macdonald on 03-23-2024 Hemoglobin measurement 13.8 g/dL 13.0-16.5 [facility] Immature granulocytes/100 WB C Auto (Bld)Ordered By: Nanette Macdonald on 03-23-2024 Automated immature granulocyte percentage 0.300 % 0.0-0.9 [facility] Lymphocytes Auto (Unsp spec) [#/Vol]Ordered By: Nanette Macdonald on 03-23-2024 Absolute lymphocyte count 1.28 X10^3/uL 0.83-4.51 [facility] Lymphocytes/100 WBC Auto (Un sp spec)Ordered By: Nanette Macdonald on 03-23-2024 Automated lymphocyte count as percentage of total leukocytes 14.3 % Low 19-41 [facility] MCV (RBC) [Entitic vol]Order ed By: Nanette Macdonald on 03-23-2024 MCV (mean corpuscular volume) determination 99.0 fL High 80-94 [facility] Mean corpuscular hemoglobin (MCH) determinationOrdered By: Nanette Macdonald on 03-23-2024 Mean corpuscular hemoglobin (MCH) determination 33.3 pg High 27.0-32.0 [facility] Mean corpuscular hemoglobin concentration (MCHC) determinationOrdered By: Nanette Macdonald on 03-23-2024 Mean corpuscular hemoglobin concentration (MCHC) determination 33.7 g/dL 32-36 [facility] Mean platelet volume determi nationOrdered By: Nanette Macdonald on 03-23-2024 Mean platelet volume determination 10.0 fl 6.2-12.0 [facility] Monocyte percentageOrdered B y: Nanette Macdonald on 03-23-2024 Monocyte percentage 8.4 % 0-10 [facility] Neutrophil percentageOrdered By: Nanette Macdonald on 03-23-2024 Neutrophil percentage 74.9 % High 47-70 [facility] Nucleated red blood cell per centageOrdered By: Nanette Macdonald on 03-23-2024 Nucleated red blood cell percentage 0 % 0-5 [facility] Platelet countOrdered By: Serjio Macdonald on 03-23-2024 Platelet count 401 K/mm3 150-450 [facility] RBC Auto (Bld) [#/Vol]Ordere d By: Nanette Macdonald on 03-23-2024 Automated blood erythrocyte count 4.14 M/mm3 Low 4.6-6.2 [facility] White blood cell (WBC) count Ordered By: Nanette Macdonald on 03-23-2024 White blood cell (WBC) count 8.9 K/mm3 4.4-11.0 [facility] Gastroenterology Visit Repor ton 11-19-2024 Gastroenterology Visit Report Normal [facility] Basophil percentageOrdered B y: Aren Montaño on 08-10-2023 Basophil percentage < 0.01 ng/mL 0.0-4.0 [facility] Comment on above: This test was perfor med using the TPSA assay method for thesmsPREP chemistry system. Values obtained with differentassay methods cannot be used interchangably.When changing PSA assays in the course of monitoring apatient, additional sequential testing should be carriedout to confirm baseline values. Basophil percentageOrdered B y: Amy Morris on 04-21-2023 Chloride [Moles/Vol] 103 mmol/L 98-107 [facility] Glucose [Mass/Vol] 133 mg/dL 74-106 [facility] Comment on above: Fasting Glucose resu lt greater than or equal to 126 mg/dL suggests DIABETES MELLITUS per A.D.A. criteria. Potassium [Moles/Vol] 3.5 mmol/L 3.5-5.1 [facility] Sodium [Moles/Vol] 139 mmol/L 136-145 [facility] Laboratory - Chemistry and C hemistry - challengeOrdered By: Amy Morris on 04-21-2023 CO2 [Moles/Vol] 31.0 mmol/L 21.0-32.0 [facility] Urea nitrogen/Creatinine [Mass ratio] 9.2 mg/mg 02-19 [facility] No Panel InformationOrdered By: Amy Morris on 04-21-2023 Estimated GFR (MDRD) Amer 49 mL/min >60 [facility] Comment on above: GFR Calc Estimated GFR (MDRD) Non-Af Amer 41 mL/min >60 [facility] Comment on above: Non- GFR Calc Serum or plasma calcium jenna urement (mass/volume)Ordered By: Amy Morris on 04-21-2023 Calcium [Mass/Vol] 10.0 mg/dL 8.5-10.1 [facility] Serum or plasma creatinine m easurement (mass/volume)Ordered By: Amy Morris on 04-21-2023 Creatinine [Mass/Vol] 1.73 mg/dL 0.70-1.30 [facility] Comment on above: The validity of the calculated GFR & GFRAA in patients over 70 years has not been determined. Clinical correlation is essential. Serum or plasma urea nitroge n measurement (mass/volume)Ordered By: Amy Morris on 04-21-2023 Urea nitrogen [Mass/Vol] 16 mg/dL 7-18 [facility] Thin prep Papanicolaou smear with manual screeningOrdered By: Amy Morris on 04-21-2023 Thin prep Papanicolaou smear with manual screening 5 5-15 [facility] Basophil percentageOrdered B y: Amy Morris on 2023 Chloride [Moles/Vol] 108 mmol/L 98-107 [facility] Glucose [Mass/Vol] 116 mg/dL 74-106 [facility] Comment on above: Fasting Glucose resu lt from 100 to 125 mg/dL suggests IMPAIRED HOMEOSTASIS per A.D.A. criteria. Potassium [Moles/Vol] 3.7 mmol/L 3.5-5.1 [facility] Sodium [Moles/Vol] 143 mmol/L 136-145 [facility] WBC (Bld) [#/Vol] 7.0 10*3/uL 4.4-11.0 [facility] Blood erythrocytes count (nu mber/volume)Ordered By: Amy Morris on 2023 RBC (Bld) [#/Vol] 4.56 10*6/uL 4.6-6.2 [facility] Blood hemoglobin measurement (mass/volume)Ordered By: Amy Morris on 2023 Hemoglobin (Bld) [Mass/Vol] 13.6 g/dL 13.0-16.5 [facility] Blood platelet mean volumeOr dered By: Amy Morris on 2023 Platelet mean volume (Bld) [Entitic vol] 10.7 fL 6.2-12.0 [facility] Determination of erythrocyte mean corpuscular volume (MCV)Ordered By: Amy Morris on 2023 MCV (RBC) [Entitic vol] 92.8 fL 80-94 [facility] Hematocrit Auto (Bld) [Volum e fraction]Ordered By: Amy Morris on 2023 Hematocrit (Bld) [Volume fraction] 42.3 % 40-54 [facility] Laboratory - Chemistry and C hemistry - challengeOrdered By: Amy Morris on 2023 CO2 [Moles/Vol] 28.0 mmol/L 21.0-32.0 [facility] Natriuretic peptide B (Bld) [Mass/Vol] 133.4 pg/mL 0-100 [facility] Urea nitrogen/Creatinine [Mass ratio] 12.1 mg/mg 10-20 [facility] Laboratory - Hematology and Cell countsOrdered By: Amy Morris on 2023 Erythrocyte distribution width (RBC) [Entitic vol] 46.3 fL 35.1-43.9 [facility] Erythrocyte distribution width (RBC) [Ratio] 13.6 % 11.6-14.6 [facility] MCH (RBC) [Entitic mass] 29.8 pg 27.0-32.0 [facility] MCHC Auto (RBC) [Mass/Vol]Or dered By: Amy Morris on 2023 MCHC (RBC) [Mass/Vol] 32.2 g/dL 32-36 [facility] No Panel InformationOrdered By: Amy Morris on 2023 Estimated GFR (MDRD) Amer 59 mL/min >60 [facility] Comment on above: GFR Calc Estimated GFR (MDRD) Non-Af Amer 48 mL/min >60 [facility] Comment on above: Non- GFR Calc Platelets bldOrdered By: Mike Morris on 2023 Platelets (Bld) [#/Vol] 291 10*3/uL 150-450 [facility] Serum or plasma calcium jenna urement (mass/volume)Ordered By: Amy Morris on 2023 Calcium [Mass/Vol] 9.6 mg/dL 8.5-10.1 [facility] Serum or plasma creatinine m easurement (mass/volume)Ordered By: Amy Morris on 2023 Creatinine [Mass/Vol] 1.49 mg/dL 0.70-1.30 [facility] Comment on above: The validity of the calculated GFR & GFRAA in patients over 70 years has not been determined. Clinical correlation is essential. Serum or plasma urea nitroge n measurement (mass/volume)Ordered By: Amy Morris on 2023 Urea nitrogen [Mass/Vol] 18 mg/dL 7-18 [facility] Thin prep Papanicolaou smear with manual screeningOrdered By: Amy Morris on 2023 Thin prep Papanicolaou smear with manual screening 7 -15 [facility] Basophil percentageOrdered B y: Marshall Briscoe on 02-11-2023 Creatinine [Mass/Vol] 1.6 mg/dL 0.70-1.30 [facility] Laboratory - Chemistry and C hemistry - challengeOrdered By: Marshall Briscoe on 02-11-2023 GFR/1.73 sq M.predicted among non-blacks MDRD (S/P/Bld) [Vol rate/Area] 44.0000 mL/min/{1.73_m2} >60 [facility] Basophil percentageOrdered B y: Christiano Steinberg on 12-14-2022 Chloride [Moles/Vol] 105 mmol/L 98-107 [facility] Glucose [Mass/Vol] 115 mg/dL 74-106 [facility] Comment on above: Fasting Glucose resu lt from 100 to 125 mg/dL suggests IMPAIRED HOMEOSTASIS per A.D.A. criteria. Potassium [Moles/Vol] 3.6 mmol/L 3.5-5.1 [facility] Sodium [Moles/Vol] 140 mmol/L 136-145 [facility] Laboratory - Chemistry and C hemistry - challengeOrdered By: Christiano Steinberg on 12-14-2022 CO2 [Moles/Vol] 28.0 mmol/L 21.0-32.0 [facility] Urea nitrogen/Creatinine [Mass ratio] 10.7 mg/mg 10-20 [facility] No Panel InformationOrdered By: Christiano Steinberg on 12-14-2022 Estimated GFR (MDRD) Amer 35 mL/min >60 [facility] Comment on above: GFR Calc Estimated GFR (MDRD) Non-Af Amer 29 mL/min >60 [facility] Comment on above: Non- GFR Calc Serum or plasma calcium jenna urement (mass/volume)Ordered By: Christiano Steinberg on 12-14-2022 Calcium [Mass/Vol] 10.3 mg/dL 8.5-10.1 [facility] Serum or plasma creatinine m easurement (mass/volume)Ordered By: Christiano Vazquezori on 12-14-2022 Creatinine [Mass/Vol] 2.34 mg/dL 0.70-1.30 [facility] Comment on above: The validity of the calculated GFR & GFRAA in patients over 70 years has not been determined. Clinical correlation is essential. Serum or plasma urea nitroge n measurement (mass/volume)Ordered By: [facility] Urea nitrogen [Mass/Vol] 25 mg/dL 7-18 [facility] Thin prep Papanicolaou smear with manual screeningOrdered By: Christiano Maryan on 12-14-2022 Thin prep Papanicolaou smear with manual screening 7 5-15 [facility] Absolute lymphocyte countOrd ered By: Joseph Manzano on 11-30-2022 Lymphocytes Auto (Unsp spec) [#/Vol] 1.39 10*3/uL 0.83-4.51 [facility] Basophil percentageOrdered B y: Joseph Manzano on 11-30-2022 Basophils/100 WBC (Bld) 0.8 % 0-1 [facility] Chloride [Moles/Vol] 108 mmol/L 98-107 [facility] Eosinophils/100 WBC (Bld) 8.0 % 0-5 [facility] Glucose [Mass/Vol] 100 mg/dL 74-106 [facility] Comment on above: Fasting Glucose resu lt from 100 to 125 mg/dL suggests IMPAIRED HOMEOSTASIS per A.D.A. criteria. Neutrophils (Bld) [#/Vol] 5.8 10*3/uL 2.0-7.7 [facility] Neutrophils/100 WBC (Bld) 68.1 % 47-70 [facility] Potassium [Moles/Vol] 3.3 mmol/L 3.5-5.1 [facility] Sodium [Moles/Vol] 141 mmol/L 136-145 [facility] WBC (Bld) [#/Vol] 8.5 10*3/uL 4.4-11.0 [facility] Blood erythrocytes count (nu mber/volume)Ordered By: Joseph Manzano on 11-30-2022 RBC (Bld) [#/Vol] 4.71 10*6/uL 4.6-6.2 [facility] Blood hemoglobin measurement (mass/volume)Ordered By: Joseph Manzano on 11-30-2022 Hemoglobin (Bld) [Mass/Vol] 13.9 g/dL 13.0-16.5 [facility] Blood lymphocytes/100 leukoc ytesOrdered By: Joseph Manzano on 11-30-2022 Lymphocytes/100 WBC (Bld) 16.3 % 19-41 [facility] Blood monocytes/100 leukocyt esOrdered By: Joseph Manzano on 11-30-2022 Monocytes/100 WBC (Bld) 6.4 % 0-10 [facility] Blood platelet mean volumeOr dered By: Joseph Manzano on 11-30-2022 Platelet mean volume (Bld) [Entitic vol] 11.1 fL 6.2-12.0 [facility] Determination of erythrocyte mean corpuscular volume (MCV)Ordered By: Joseph Manzano on 11-30-2022 MCV (RBC) [Entitic vol] 90.0 fL 80-94 [facility] Hematocrit Auto (Bld) [Volum e fraction]Ordered By: Joseph Manzano on 11-30-2022 Hematocrit (Bld) [Volume fraction] 42.4 % 40-54 [facility] Laboratory - Chemistry and C hemistry - challengeOrdered By: Joseph Manzano on 11-30-2022 CO2 [Moles/Vol] 25.0 mmol/L 21.0-32.0 [facility] Natriuretic peptide B (Bld) [Mass/Vol] 177.8 pg/mL 0-100 [facility] Urea nitrogen/Creatinine [Mass ratio] 11.4 mg/mg 10-20 [facility] Laboratory - Hematology and Cell countsOrdered By: Joseph Manzano on 11-30-2022 Erythrocyte distribution width (RBC) [Entitic vol] 49.1 fL 35.1-43.9 [facility] Erythrocyte distribution width (RBC) [Ratio] 14.9 % 11.6-14.6 [facility] Immature granulocytes/100 WBC (Bld) 0.400 % 0.0-0.9 [facility] Comment on above: IG% - Immature Granu locytes (promyelocytes, myelocytes and metamyelocytes) > 1% indicates that a LEFT SHIFT is Present. MCH (RBC) [Entitic mass] 29.5 pg 27.0-32.0 [facility] Nucleated RBC/100 WBC (Bld) [Ratio] 0 % [facility] [Mass/Vol]Or dered By: Joseph Manzano on 11-30-2022 MCHC (RBC) [Mass/Vol] 32.8 g/dL 32-36 [facility] No Panel InformationOrdered By: Joseph Manzano on 11-30-2022 Troponin I High Sensitivity 17 pg/mL 3.0-78.0 [facility] Comment on above: Please Note: New Nayeli t Units and Gender Specific Reference Ranges. For more information see Policy Stat Procedure [place] High Sensitivity Troponin (TNIH) and attachments. Estimated Creatinine Clearance Calc 34.08 ml/min [facility] Estimated GFR (MDRD) Amer 51 mL/min >60 [facility] Comment on above: GFR Calc Estimated GFR (MDRD) Non-Af Amer 42 mL/min >60 [facility] Comment on above: Non- GFR Calc Platelets bldOrdered By: Kvng Manzano on 11-30-2022 Platelets (Bld) [#/Vol] 423 10*3/uL 150-450 [facility] Serum or plasma calcium jenna urement (mass/volume)Ordered By: Joseph Manzano on 11-30-2022 Calcium [Mass/Vol] 9.9 mg/dL 8.5-10.1 [facility] Serum or plasma creatinine m easurement (mass/volume)Ordered By: Joseph Manzano on 11-30-2022 Creatinine [Mass/Vol] 1.67 mg/dL 0.70-1.30 [facility] Comment on above: The validity of the calculated GFR & GFRAA in patients over 70 years has not been determined. Clinical correlation is essential. Serum or plasma urea nitroge n measurement (mass/volume)Ordered By: Joseph Manzano on 11-30-2022 Urea nitrogen [Mass/Vol] 19 mg/dL 7-18 [facility] Thin prep Papanicolaou smear with manual screeningOrdered By: Joseph Manzano on 11-30-2022 Thin prep Papanicolaou smear with manual screening 8 5-15 [facility] Basophil percentageOrdered B y: Christiano Maryan on 11-27-2022 Potassium [Moles/Vol] 3.7 mmol/L 3.5-5.1 [facility] No Panel InformationOrdered By: Aren Montaño on 11-24-2022 Prostate Specific Antigen Total 0.05 ng/mL 0.0-4.0 [facility] Comment on above: This test was perfor med using the TPSA assay method for thesmsPREP chemistry system. Values obtained with differentassay methods cannot be used interchangably.When changing PSA assays in the course of monitoring apatient, additional sequential testing should be carriedout to confirm baseline values. Basophil percentageOrdered B y: Bethel Gallegos on 11-16-2022 Basophil percentage 110 mg/dL 74-106 [facility] Basophil percentage 140 mmol/L 136-145 [facility] Basophil percentage 3.4 mmol/L 3.5-5.1 [facility] Basophil percentage 112 mmol/L 98-107 [facility] Chloride [Moles/Vol] 112 mmol/L 98-107 [facility] Glucose [Mass/Vol] 110 mg/dL 74-106 [facility] Comment on above: Fasting Glucose resu lt from 100 to 125 mg/dL suggests IMPAIRED HOMEOSTASIS per A.D.A. criteria. Potassium [Moles/Vol] 3.4 mmol/L 3.5-5.1 [facility] Sodium [Moles/Vol] 140 mmol/L 136-145 [facility] Basophil percentageOrdered B y: Good Morse on 11-16-2022 Basophil percentage 3.1 mg/dL 2.5-4.9 [facility] Laboratory - Chemistry and C hemistry - challengeOrdered By: Bethel Gallegos on 11-16-2022 CO2 [Moles/Vol] 23.0 mmol/L 21.0-32.0 [facility] Urea nitrogen/Creatinine [Mass ratio] 13.6 mg/mg 10-20 [facility] Laboratory - CoagulationOrde red By: Bethel Gallegos on 11-16-2022 aPTT Coag (Bld) [Time] 35.8 s 24.1-36.2 [facility] No Panel InformationOrdered By: Bethel Gallegos on 07-17-2023 35.8 Seconds 24.1-36.2 [facility] Estimated Creatinine Clearance Calc 38.37 ml/min [facility] Estimated GFR (MDRD) Amer 60 mL/min >60 [facility] Comment on above: GFR Calc Estimated GFR (MDRD) Non-Af Amer 49 mL/min >60 [facility] Comment on above: Non- GFR Calc 49 mL/min >60 [facility] 60 mL/min >60 [facility] 38.37 ml/min [facility] 13.6 RATIO 10-20 [facility] 23.0 mmol/L 21.0-32.0 [facility] Serum or plasma albumin jenna urement (mass/volume)Ordered By: Good Morse on 11-16-2022 Albumin [Mass/Vol] 3.2 g/dL 3.2-5.0 [facility] Serum or plasma calcium jenna urement (mass/volume)Ordered By: Bethel Gallegos on 11-16-2022 Calcium [Mass/Vol] 9.5 mg/dL 8.5-10.1 [facility] Serum or plasma creatinine m easurement (mass/volume)Ordered By: Bethel Gallegos on 11-16-2022 Creatinine [Mass/Vol] 1.47 mg/dL 0.70-1.30 [facility] Comment on above: The validity of the calculated GFR & GFRAA in patients over 70 years has not been determined. Clinical correlation is essential. Serum or plasma urea nitroge n measurement (mass/volume)Ordered By: Bethel Gallegos on 11-16-2022 Urea nitrogen [Mass/Vol] 20 mg/dL 7-18 [facility] Thin prep Papanicolaou smear with manual screeningOrdered By: Bethel Gallegos on 11-16-2022 Thin prep Papanicolaou smear with manual screening 5 5-15 [facility] Absolute lymphocyte countOrd ered By: Delma Gonsalves on 11-15-2022 Lymphocytes Auto (Unsp spec) [#/Vol] 1.02 10*3/uL 0.83-4.51 [facility] Basophil percentageOrdered B y: Good Morse on 11-15-2022 Basophil percentage 0 SEEN /hpf 0-5 [facility] Basophil percentageOrdered B y: Delma Gonsalves on 11-15-2022 Basophil percentage 6.2 g/dL 6.4-8.2 [facility] Basophil percentage 0.70 mg/dL 0.20-1.00 [facility] Basophil percentage 196 mg/dL <200 [facility] Basophil percentage 107 mg/dL <199 [facility] Basophils (Bld) [#/Vol] 7.4 10*3/uL 4.4-11.0 [facility] Basophils (Bld) [#/Vol] 5.1 10*3/uL 2.0-7.7 [facility] Basophils/100 WBC (Bld) 69.1 % 47-70 [facility] Basophils/100 WBC (Bld) 9.4 % 0-5 [facility] Basophils/100 WBC (Bld) 1.1 % 0-1 [facility] Bilirubin [Mass/Vol] 0.70 mg/dL 0.20-1.00 [facility] Comment on above: For patients on eltr ombopag therapy, use of Dimension [place] TBIL is not recommended. Cholesterol [Mass/Vol] 196 mg/dL <200 [facility] Comment on above: <200 mg/dL Desirable 200-240 mg/dL Borderline >240 mg/dL High Risk Eosinophils/100 WBC (Bld) 9.4 % 0-5 [facility] Neutrophils (Bld) [#/Vol] 5.1 10*3/uL 2.0-7.7 [facility] Neutrophils/100 WBC (Bld) 69.1 % 47-70 [facility] Protein [Mass/Vol] 6.2 g/dL 6.4-8.2 [facility] Triglyceride [Mass/Vol] 107 mg/dL <199 [facility] Comment on above: The drugs N-Acetylcy steine and Metamizole may falsely depress this assay.Serum Triglycerides Reference Interval Normal <150 mg/dL Borderline high 150 - 199 mg/dL High 200 - 499 mg/dL Very High > or = 500 mg/dL WBC (Bld) [#/Vol] 7.4 10*3/uL 4.4-11.0 [facility] Bilirubin Test strip Ql (U)O rdered By: Good Morse on 11-15-2022 Bilirubin Ql (U) Negative Negative [facility] Blood erythrocytes count (nu mber/volume)Ordered By: Delma Gonsalves on 11-15-2022 RBC (Bld) [#/Vol] 4.51 10*6/uL 4.6-6.2 [facility] Blood hemoglobin measurement (mass/volume)Ordered By: Delma Gonsalves on 11-15-2022 Hemoglobin (Bld) [Mass/Vol] 13.1 g/dL 13.0-16.5 [facility] Blood lymphocytes/100 leukoc ytesOrdered By: Delma Gonsalves on 11-15-2022 Lymphocytes/100 WBC (Bld) 13.7 % 19-41 [facility] Blood monocytes/100 leukocyt esOrdered By: Delma Gonsalves on 11-15-2022 Monocytes/100 WBC (Bld) 6.3 % 0-10 [facility] Blood platelet mean volumeOr dered By: Delma Gonsalves on 11-15-2022 Platelet mean volume (Bld) [Entitic vol] 10.1 fL 6.2-12.0 [facility] Determination of erythrocyte mean corpuscular volume (MCV)Ordered By: Delma Gonsalves on 11-15-2022 MCV (RBC) [Entitic vol] 89.6 fL 80-94 [facility] Hematocrit Auto (Bld) [Volum e fraction]Ordered By: Delma Gonsalves on 11-15-2022 Hematocrit (Bld) [Volume fraction] 40.4 % 40-54 [facility] Ketones Test strip Ql (U)Ord ered By: Good Morse on 11-15-2022 Ketones Ql (U) Negative Negative [facility] Laboratory - Chemistry and C hemistry - challengeOrdered By: Delma Gonsalves on 11-15-2022 ALP [Catalytic activity/Vol] 74 U/L 45-117 [facility] ALT [Catalytic activity/Vol] 17 U/L 16-61 [facility] Globulin (S) [Mass/Vol] 3.0 g/dL 2.2-4.2 [facility] Laboratory - Hematology and Cell countsOrdered By: Delma Gonsalves on 11-15-2022 Erythrocyte distribution width (RBC) [Entitic vol] 50.4 fL 35.1-43.9 [facility] Erythrocyte distribution width (RBC) [Ratio] 15.3 % 11.6-14.6 [facility] Immature granulocytes/100 WBC (Bld) 0.400 % 0.0-0.9 [facility] Comment on above: IG% - Immature Granu locytes (promyelocytes, myelocytes and metamyelocytes) > 1% indicates that a LEFT SHIFT is Present. MCH (RBC) [Entitic mass] 29.0 pg 27.0-32.0 [facility] Nucleated RBC/100 WBC (Bld) [Ratio] 0 % 0-5 [facility] MCHC Auto (RBC) [Mass/Vol]Or dered By: Delma Gonsalves on 11-15-2022 MCHC (RBC) [Mass/Vol] 32.4 g/dL 32-36 [facility] Mucus LM Ql (Urine sed)Order ed By: Good Morse on 11-15-2022 Mucus Ql (Urine sed) 0 SEEN /hpf [facility] Nitrite Test strip Ql (U)Ord ered By: Good Morse on 11-15-2022 Nitrite Ql (U) Negative Negative [facility] No Panel InformationOrdered By: Delma Gonsalves on 11-15-2022 29.0 pg 27.0-32.0 [facility] 15.3 % 11.6-14.6 [facility] 50.4 fl 35.1-43.9 [facility] 0.400 % 0.0-0.9 [facility] 0 % 0-5 [facility] 3.0 g/dL 2.2-4.2 [facility] 74 U/L 45-117 [facility] 17 U/L 16-61 [facility] Platelets bldOrdered By: Babar Gonsalves on 11-15-2022 Platelets (Bld) [#/Vol] 280 10*3/uL 150-450 [facility] Protein Test strip Ql (U)Ord ered By: Good Morse on 11-15-2022 Protein Ql (U) Negative Negative [facility] Serum or plasma albumin/glob ulin mass ratioOrdered By: Delma Gonsalves on 11-15-2022 Albumin/Globulin [Mass ratio] 1.1 {ratio} 0.9-2.4 [facility] Serum or plasma cholesterol in HDL measurement (mass/volume)Ordered By: Delma Gonsalves on 11-15-2022 Cholesterol in HDL [Mass/Vol] 62 mg/dL >40 [facility] Comment on above: The drugs N-Acetylcy steine and Metamizole may falsely depress this assay. Reference Range HDL <40 mg/dL Low HDL Cholesterol HDL >or= 60 mg/dL High HDL Cholesterol Serum or plasma cholesterol in VLDL measurement (mass/volume)Ordered By: Delma Gonsalves on 11-15-2022 Cholesterol in VLDL [Mass/Vol] 21 mg/dL 5-40 [facility] Serum or plasma low density lipoprotein (LDL) cholesterol measurement (mass/volume)Ordered By: Delma Gonsalves on 11-15-2022 Cholesterol in LDL [Mass/Vol] 113 mg/dL 0-130 [facility] Squamous epithelial cells de tection in urine sediment by light microscopyOrdered By: Good Morse on 11-15-2022 Epithelial cells.squamous LM Ql (Urine sed) 0 SEEN /hpf 0-5 [facility] Thin prep Papanicolaou smear with manual screeningOrdered By: Delma Gonsalves on 11-15-2022 Thin prep Papanicolaou smear with manual screening 23 U/L 15-37 [facility] Urine blood detectionOrdered By: Good Morse on 11-15-2022 RBC Ql (U) Negative Negative [facility] RBC Ql (U) 0 SEEN /hpf 0-5 [facility] Urine clarityOrdered By: Courtney Morse on 11-15-2022 Clarity (U) Clear Clear [facility] Urine color determinationOrd ered By: Good Morse on 11-15-2022 Color (U) Yellow Yellow [facility] Urine glucose detectionOrder ed By: Good Morse on 11-15-2022 Glucose Ql (U) Normal mg/dl Normal [facility] Urine leukocyte esterase det ection by dipstickOrdered By: Good Morse on 11-15-2022 Leukocyte esterase Test strip Ql (U) Negative Negative [facility] Urine pHOrdered By: Devin Morse on 11-15-2022 pH (U) 6.5 [pH] 5.0 - 8.0 [facility] Urine sediment bacteria coun t by microscopy (number/high power field)Ordered By: Good Morse on 11-15-2022 Bacteria LM.HPF (Urine sed) [#/Area] 0 /[HPF] None Seen [facility] Urine specific gravity measu rementOrdered By: [facility] on 11-15-2022 Specific gravity (U) [Rel density] 1.010 1.002-1.030 [facility] Urobilinogen Auto test strip Ql (U)Ordered By: [facility] on 11-15-2022 Urobilinogen Ql (U) Normal mg/dl Normal [facility] Absolute lymphocyte countOrd ered By: Rafa Hernandez on 11-14-2022 Lymphocytes Auto (Unsp spec) [#/Vol] 1.74 10*3/uL 0.83-4.51 [facility] Basophil percentageOrdered B y: Rafa Hernandez on 11-14-2022 Basophils/100 WBC (Bld) 0.8 % 0-1 [facility] Chloride [Moles/Vol] 106 mmol/L 98-107 [facility] Eosinophils/100 WBC (Bld) 8.5 % 0-5 [facility] Glucose [Mass/Vol] 107 mg/dL 74-106 [facility] Comment on above: Fasting Glucose resu lt from 100 to 125 mg/dL suggests IMPAIRED HOMEOSTASIS per A.D.A. criteria. Neutrophils (Bld) [#/Vol] 5.8 10*3/uL 2.0-7.7 [facility] Neutrophils/100 WBC (Bld) 63.8 % 47-70 [facility] Potassium [Moles/Vol] 3.5 mmol/L 3.5-5.1 [facility] Sodium [Moles/Vol] 142 mmol/L 136-145 [facility] WBC (Bld) [#/Vol] 9.1 10*3/uL 4.4-11.0 [facility] Blood erythrocytes count (nu mber/volume)Ordered By: Rafa Hernandez on 11-14-2022 RBC (Bld) [#/Vol] 4.77 10*6/uL 4.6-6.2 [facility] Blood hemoglobin measurement (mass/volume)Ordered By: Rafa Hernandez on 11-14-2022 Hemoglobin (Bld) [Mass/Vol] 14.0 g/dL 13.0-16.5 [facility] Blood lymphocytes/100 leukoc ytesOrdered By: Rafa Hernandez on 11-14-2022 Lymphocytes/100 WBC (Bld) 19.2 % 19-41 [facility] Blood monocytes/100 leukocyt esOrdered By: Rafa Hernandez on 11-14-2022 Monocytes/100 WBC (Bld) 7.4 % 0-10 [facility] Blood platelet mean volumeOr dered By: Rafa Hernandez on 11-14-2022 Platelet mean volume (Bld) [Entitic vol] 10.2 fL 6.2-12.0 [facility] Determination of erythrocyte mean corpuscular volume (MCV)Ordered By: Rafa Hernandez on 11-14-2022 MCV (RBC) [Entitic vol] 89.3 fL 80-94 [facility] Hematocrit Auto (Bld) [Volum e fraction]Ordered By: Rafa Hernandez on 11-14-2022 Hematocrit (Bld) [Volume fraction] 42.6 % 40-54 [facility] INR in Blood by Coagulation assayOrdered By: Rafa Hernandez on 11-14-2022 INR Coag (Bld) [Relative time] 1.0 {INR} [facility] Laboratory - Chemistry and C hemistry - challengeOrdered By: Delma Gonsalves on 11-14-2022 Magnesium [Mass/Vol] 2.2 mg/dL 1.6-2.6 [facility] Laboratory - Chemistry and C hemistry - challengeOrdered By: Rafa Hernandez on 11-14-2022 CO2 [Moles/Vol] 29.0 mmol/L 21.0-32.0 [facility] Urea nitrogen/Creatinine [Mass ratio] 12.9 mg/mg 10-20 [facility] Laboratory - CoagulationOrde red By: Rafa Hernandez on 11-14-2022 aPTT Coag (Bld) [Time] 31.6 s 24.1-36.2 [facility] PT Coag (PPP) [Time] 13.1 s 11.7-14.9 [facility] Laboratory - Hematology and Cell countsOrdered By: Rafa Hernandez on 11-14-2022 Erythrocyte distribution width (RBC) [Entitic vol] 50.1 fL 35.1-43.9 [facility] Erythrocyte distribution width (RBC) [Ratio] 15.3 % 11.6-14.6 [facility] Immature granulocytes/100 WBC (Bld) 0.300 % 0.0-0.9 [facility] Comment on above: IG% - Immature Granu locytes (promyelocytes, myelocytes and metamyelocytes) > 1% indicates that a LEFT SHIFT is Present. MCH (RBC) [Entitic mass] 29.4 pg 27.0-32.0 [facility] Nucleated RBC/100 WBC (Bld) [Ratio] 0 % 0-5 [facility] MCHC Auto (RBC) [Mass/Vol]Or dered By: Rafa Hernandez on 11-14-2022 MCHC (RBC) [Mass/Vol] 32.9 g/dL 32-36 [facility] No Panel InformationOrdered By: Bethel Gallegos on 11-14-2022 Troponin I High Sensitivity 1880 pg/mL 3.0-78.0 [facility] Comment on above: Critical Result(s) C alled at: 16:40:34 11/14/2022 by: Barbara CHRIS. Results read back by same. Please Note: New Test Units and Gender Specific Reference Ranges. For more information see Policy Stat Procedure [place] High Sensitivity Troponin (TNIH) and attachments. 1880 pg/mL 3.0-78.0 [facility] No Panel InformationOrdered By: Rafa Hernandez on 11-14-2022 Troponin I High Sensitivity 456 pg/mL 3.0-78.0 [facility] Comment on above: Critical Result(s) C alled at: 04:44:11 11/14/2022 by: VENTURA DOSS. TO KARENA Results read back by same. Please Note: New Test Units and Gender Specific Reference Ranges. For more information see Policy Stat Procedure [place] High Sensitivity Troponin (TNIH) and attachments. Estimated Creatinine Clearance Calc 31.98 ml/min [facility] Estimated GFR (MDRD) Amer 48 mL/min >60 [facility] Comment on above: GFR Calc Estimated GFR (MDRD) Non-Af Amer 39 mL/min >60 [facility] Comment on above: Non- GFR Calc 13.1 SECONDS 11.7-14.9 [facility] No Panel InformationOrdered By: Delma White on 11-14-2022 2.2 mg/dL 1.6-2.6 [facility] Platelets bldOrdered By: Leo Hernandez on 11-14-2022 Platelets (Bld) [#/Vol] 336 10*3/uL 150-450 [facility] Serum or plasma calcium jenna urement (mass/volume)Ordered By: Rafa Hernandez on 11-14-2022 Calcium [Mass/Vol] 10.0 mg/dL 8.5-10.1 [facility] Serum or plasma creatinine m easurement (mass/volume)Ordered By: Rafa Hernandez on 11-14-2022 Creatinine [Mass/Vol] 1.78 mg/dL 0.70-1.30 [facility] Comment on above: The validity of the calculated GFR & GFRAA in patients over 70 years has not been determined. Clinical correlation is essential. Serum or plasma urea nitroge n measurement (mass/volume)Ordered By: Rafa Hernandez on 11-14-2022 Urea nitrogen [Mass/Vol] 23 mg/dL 7-18 [facility] Thin prep Papanicolaou smear with manual screeningOrdered By: Rafa Hernandez on 11-14-2022 Thin prep Papanicolaou smear with manual screening 7 - [facility] Absolute lymphocyte countOrd ered By: Thomas Oropeza on 11-01-2022 Lymphocytes Auto (Unsp spec) [#/Vol] 1.75 10*3/uL 0.83-4.51 [facility] Basophil percentageOrdered B y: Thomas Oropeza on 11-01-2022 Basophil percentage 88 mg/dL 74-106 [facility] Basophil percentage 142 mmol/L 136-145 [facility] Basophil percentage 3.1 mmol/L 3.5-5.1 [facility] Basophil percentage 108 mmol/L 98-107 [facility] Basophils (Bld) [#/Vol] 10.4 10*3/uL 4.4-11.0 [facility] Basophils (Bld) [#/Vol] 7.4 10*3/uL 2.0-7.7 [facility] Basophils/100 WBC (Bld) 0.5 % 0-1 [facility] Basophils/100 WBC (Bld) 71.8 % 47-70 [facility] Basophils/100 WBC (Bld) 1.6 % 0-5 [facility] Chloride [Moles/Vol] 108 mmol/L 98-107 [facility] Eosinophils/100 WBC (Bld) 1.6 % 0-5 [facility] Glucose [Mass/Vol] 88 mg/dL 74-106 [facility] Neutrophils (Bld) [#/Vol] 7.4 10*3/uL 2.0-7.7 [facility] Neutrophils/100 WBC (Bld) 71.8 % 47-70 [facility] Potassium [Moles/Vol] 3.1 mmol/L 3.5-5.1 [facility] Sodium [Moles/Vol] 142 mmol/L 136-145 [facility] WBC (Bld) [#/Vol] 10.4 10*3/uL 4.4-11.0 [facility] Blood erythrocytes count (nu mber/volume)Ordered By: Thomas Oropeza on 11-01-2022 RBC (Bld) [#/Vol] 4.81 10*6/uL 4.6-6.2 [facility] Blood hemoglobin measurement (mass/volume)Ordered By: Thomas Oropeza on 11-01-2022 Hemoglobin (Bld) [Mass/Vol] 14.0 g/dL 13.0-16.5 [facility] Blood lymphocytes/100 leukoc ytesOrdered By: Thomas Oropeza on 11-01-2022 Lymphocytes/100 WBC (Bld) 16.9 % 19-41 [facility] Blood monocytes/100 leukocyt esOrdered By: Thomas Oropeza on 11-01-2022 Monocytes/100 WBC (Bld) 8.6 % 0-10 [facility] Blood platelet mean volumeOr dered By: Thomas Oropeza on 11-01-2022 Platelet mean volume (Bld) [Entitic vol] 10.3 fL 6.2-12.0 [facility] Determination of erythrocyte mean corpuscular volume (MCV)Ordered By: Thomas Oropeza on 11-01-2022 MCV (RBC) [Entitic vol] 88.4 fL 80-94 [facility] Hematocrit Auto (Bld) [Volum e fraction]Ordered By: Thomas Oropeza on 11-01-2022 Hematocrit (Bld) [Volume fraction] 42.5 % 40-54 [facility] Laboratory - Chemistry and C hemistry - challengeOrdered By: Thomas Oropeza on 11-01-2022 CO2 [Moles/Vol] 29.0 mmol/L 21.0-32.0 [facility] Urea nitrogen/Creatinine [Mass ratio] 19.1 mg/mg 10-20 [facility] Laboratory - Hematology and Cell countsOrdered By: Thomas Oropeza on 11-01-2022 Erythrocyte distribution width (RBC) [Entitic vol] 48.8 fL 35.1-43.9 [facility] Erythrocyte distribution width (RBC) [Ratio] 15.0 % 11.6-14.6 [facility] Immature granulocytes/100 WBC (Bld) 0.600 % 0.0-0.9 [facility] Comment on above: IG% - Immature Granu locytes (promyelocytes, myelocytes and metamyelocytes) > 1% indicates that a LEFT SHIFT is Present. MCH (RBC) [Entitic mass] 29.1 pg 27.0-32.0 [facility] Nucleated RBC/100 WBC (Bld) [Ratio] 0 % 0-5 [facility] MCHC Auto (RBC) [Mass/Vol]Or dered By: Thomas Oropeza on 11-01-2022 MCHC (RBC) [Mass/Vol] 32.9 g/dL 32-36 [facility] No Panel InformationOrdered By: Thomas Oropeza on 11-01-2022 Estimated Creatinine Clearance Calc 37.45 ml/min [facility] Estimated GFR (MDRD) Amer 57 mL/min >60 [facility] Comment on above: GFR Calc Estimated GFR (MDRD) Non-Af Amer 47 mL/min >60 [facility] Comment on above: Non- GFR Calc Troponin I High Sensitivity 32 pg/mL 3.0-78.0 [facility] Comment on above: Please Note: New Nayeli t Units and Gender Specific Reference Ranges. For more information see Policy Stat Procedure [place] High Sensitivity Troponin (TNIH) and attachments. 29.1 pg 27.0-32.0 [facility] 15.0 % 11.6-14.6 [facility] 48.8 fl 35.1-43.9 [facility] 0.600 % 0.0-0.9 [facility] 0 % 0-5 [facility] 47 mL/min >60 [facility] 57 mL/min >60 [facility] 37.45 ml/min [facility] 19.1 RATIO 10-20 [facility] 32 pg/mL 3.0-78.0 [facility] 29.0 mmol/L 21.0-32.0 [facility] Platelets bldOrdered By: Benitez Oropeza on 11-01-2022 Platelets (Bld) [#/Vol] 345 10*3/uL 150-450 [facility] Serum or plasma calcium jenna urement (mass/volume)Ordered By: Thomas Oropeza on 11-01-2022 Calcium [Mass/Vol] 9.5 mg/dL 8.5-10.1 [facility] Serum or plasma creatinine m easurement (mass/volume)Ordered By: Thomas Oropeza on 11-01-2022 Creatinine [Mass/Vol] 1.52 mg/dL 0.70-1.30 [facility] Comment on above: The validity of the calculated GFR & GFRAA in patients over 70 years has not been determined. Clinical correlation is essential. Serum or plasma urea nitroge n measurement (mass/volume)Ordered By: Thomas Oropeza on 11-01-2022 Urea nitrogen [Mass/Vol] 29 mg/dL 7-18 [facility] Thin prep Papanicolaou smear with manual screeningOrdered By: Thomas Oropeza on 11-01-2022 Thin prep Papanicolaou smear with manual screening 5 5-15 [facility] [facility] - Microbiology an d Antimicrobial susceptibilityOrdered By: Dr. Jose on 08-14-2022 Bacteria identified Cx Nom (Bld) No growth in 5 days. [facility] Bacteria identified Cx Nom (Bld) No growth in 5 days. [facility] Culture, urineOrdered By: Dr Neville Jose on 08-10-2022 Bacteria identified Cx Nom (U) Culture exhibits no growth. [facility] Absolute lymphocyte countOrd ered By: Dr. Jose on 08-08-2022 Lymphocytes Auto (Unsp spec) [#/Vol] 0.50 10*3/uL 0.83-4.51 [facility] Basophil percentageOrdered B y: Dr. Jose on 08-08-2022 Basophil percentage 0-5 SEEN /hpf 0-5 [facility] Basophils/100 WBC (Bld) 0.6 % 0-1 [facility] Bilirubin [Mass/Vol] 0.50 mg/dL 0.20-1.00 [facility] Comment on above: For patients on eltr ombopag therapy, use of Dimension [place] TBIL is not recommended. Chloride [Moles/Vol] 103 mmol/L 98-107 [facility] Eosinophils/100 WBC (Bld) 3.1 % 0-5 [facility] Glucose [Mass/Vol] 143 mg/dL 74-106 [facility] Comment on above: Fasting Glucose resu lt greater than or equal to 126 mg/dL suggests DIABETES MELLITUS per A.D.A. criteria. Lactate [Moles/Vol] 1.8 mmol/L 0.4-2.0 [facility] Neutrophils (Bld) [#/Vol] 6.4 10*3/uL 2.0-7.7 [facility] Neutrophils/100 WBC (Bld) 79.7 % 47-70 [facility] Potassium [Moles/Vol] 3.6 mmol/L 3.5-5.1 [facility] Protein [Mass/Vol] 7.1 g/dL 6.4-8.2 [facility] Sodium [Moles/Vol] 136 mmol/L 136-145 [facility] WBC (Bld) [#/Vol] 8.0 10*3/uL 4.4-11.0 [facility] Basophil percentageOrdered B y: Nanette Jose on 08-08-2022 Basophil percentage 143 mg/dL 74-106 [facility] Basophil percentage 7.1 g/dL 6.4-8.2 [facility] Basophil percentage 0.50 mg/dL 0.20-1.00 [facility] Basophil percentage 136 mmol/L 136-145 [facility] Basophil percentage 3.6 mmol/L 3.5-5.1 [facility] Basophil percentage 103 mmol/L 98-107 [facility] Basophil percentage 1.8 mmol/L 0.4-2.0 [facility] Basophils (Bld) [#/Vol] 8.0 10*3/uL 4.4-11.0 [facility] Basophils (Bld) [#/Vol] 6.4 10*3/uL 2.0-7.7 [facility] Basophils/100 WBC (Bld) 79.7 % 47-70 [facility] Basophils/100 WBC (Bld) 3.1 % 0-5 [facility] Bilirubin Test strip Ql (U)O rdered By: Dr. Jose on 08-08-2022 Bilirubin Ql (U) Negative Negative [facility] Blood erythrocytes count (nu mber/volume)Ordered By: Dr. Jose on 08-08-2022 RBC (Bld) [#/Vol] 4.89 10*6/uL 4.6-6.2 [facility] Blood hemoglobin measurement (mass/volume)Ordered By: Dr. Jose on 08-08-2022 Hemoglobin (Bld) [Mass/Vol] 13.9 g/dL 13.0-16.5 [facility] Blood lymphocytes/100 leukoc ytesOrdered By: Dr. Jose on 08-08-2022 Lymphocytes/100 WBC (Bld) 6.3 % 19-41 [facility] Blood manual differential co mment interpretation (narrative result)Ordered By: Dr. Jose on 08-08-2022 Manual differential comment Odin (Bld) [Interp] SEE COMMENT [facility] Comment on above: LYMPHOPENIA NOTED Blood monocytes/100 leukocyt esOrdered [address]: [address] Jose on 08-08-2022 Monocytes/100 WBC (Bld) 9.9 % 0-10 [facility] Blood platelet adequacy dete ction by light microscopyOrdered By: Dr. Jose on 08-08-2022 Platelets LM Ql (Bld) ADEQUATE ADEQ [facility] Blood platelet mean volumeOr dered By: Dr. Jose on 08-08-2022 Platelet mean volume (Bld) [Entitic vol] 11.1 fL 6.2-12.0 [facility] Culture, urineOrdered By: Serjio Jose on 08-08-2022 Bacteria identified Cx Nom (U) Culture exhibits no growth. [facility] Determination of erythrocyte mean corpuscular volume (MCV)Ordered By: Dr. Jose on 08-08-2022 MCV (RBC) [Entitic vol] 88.1 fL 80-94 [facility] Hematocrit Auto (Bld) [Volum e fraction]Ordered By: Dr. Jose on 08-08-2022 Hematocrit (Bld) [Volume fraction] 43.1 % 40-54 [facility] INR in Blood by Coagulation assayOrdered By: Dr. Jose on 08-08-2022 INR Coag (Bld) [Relative time] 1.1 {INR} [facility] Influenza virus A and B and SARS-CoV-2 (COVID-19) Ag panel - Upper respiratory specimOrdered By: Nanette Jose on 08-08-2022 SARS-CoV-2 (COVID-19) RNA CHUY+probe Ql (Resp) [facility] Influenza virus A and B and SARS-CoV-2 (COVID-19) Ag panel - Upper respiratory specimOrdered By: Dr. Jose on 08-08-2022 SARS-CoV-2 (COVID-19) RNA CHUY+probe Ql (Resp) [facility] Ketones Test strip Ql (U)Ord ered By: Dr. Jose on 08-08-2022 Ketones Ql (U) 5 mg/dl Negative [facility] Laboratory - Chemistry and C hemistry - challengeOrdered By: Dr. Jose on 08-08-2022 ALP [Catalytic activity/Vol] 91 U/L 45-117 [facility] ALT [Catalytic activity/Vol] 21 U/L 16-61 [facility] CO2 [Moles/Vol] 24.0 mmol/L 21.0-32.0 [facility] Globulin (S) [Mass/Vol] 3.5 g/dL 2.2-4.2 [facility] Urea nitrogen/Creatinine [Mass ratio] 11.0 mg/mg 10-20 [facility] Laboratory - CoagulationOrde red By: Dr. Jose on 08-08-2022 aPTT Coag (Bld) [Time] 33.2 s 24.1-36.2 [facility] PT Coag (PPP) [Time] 14.2 s 11.7-14.9 [facility] Laboratory - Hematology and Cell countsOrdered By: Dr. Jose on 08-08-2022 Erythrocyte distribution width (RBC) [Entitic vol] 49.6 fL 35.1-43.9 [facility] Erythrocyte distribution width (RBC) [Ratio] 15.5 % 11.6-14.6 [facility] Immature granulocytes/100 WBC (Bld) 0.400 % 0.0-0.9 [facility] Comment on above: IG% - Immature Granu locytes (promyelocytes, myelocytes and metamyelocytes) > 1% indicates that a LEFT SHIFT is Present. MCH (RBC) [Entitic mass] 28.4 pg 27.0-32.0 [facility] Nucleated RBC/100 WBC (Bld) [Ratio] 0 % 0-5 [facility] Laboratory - Microbiology an d Antimicrobial susceptibilityOrdered By: Nanette Jose on 08-08-2022 Bacteria identified Cx Nom (Bld) No growth in 5 days. [facility] MCHC Auto (RBC) [Mass/Vol]Or dered By: Dr. Jose on 08-08-2022 MCHC (RBC) [Mass/Vol] 32.3 g/dL 32-36 [facility] Mucus LM Ql (Urine sed)Order ed By: Dr. Jose on 08-08-2022 Mucus Ql (Urine sed) 0 SEEN /hpf [facility] Nitrite Test strip Ql (U)Ord ered By: Dr. Jose on 08-08-2022 Nitrite Ql (U) Negative Negative [facility] No Panel InformationOrdered By: Nanette Jose on 08-08-2022 No growth in 5 days. [facility] 28.4 pg 27.0-32.0 [facility] 15.5 % 11.6-14.6 [facility] 49.6 fl 35.1-43.9 [facility] 0.400 % 0.0-0.9 [facility] 0 % 0-5 [facility] 14.2 SECONDS 11.7-14.9 [facility] 33.2 Seconds 24.1-36.2 [facility] 39 mL/min >60 [facility] 47 mL/min >60 [facility] 31.45 ml/min [facility] 11.0 RATIO 10-20 [facility] 3.5 g/dL 2.2-4.2 [facility] 91 U/L 45-117 [facility] 21 U/L 16-61 [facility] 24.0 mmol/L 21.0-32.0 [facility] No Panel InformationOrdered By: Dr. Jose on 08-08-2022 Estimated Creatinine Clearance Calc 31.45 ml/min [facility] Estimated GFR (MDRD) Amer 47 mL/min >60 [facility] Comment on above: GFR Calc Estimated GFR (MDRD) Non-Af Amer 39 mL/min >60 [facility] Comment on above: Non- GFR Calc Platelets bldOrdered By: Dr. Jose on 08-08-2022 Platelets (Bld) [#/Vol] 270 10*3/uL 150-450 [facility] Protein Test strip Ql (U)Ord ered By: Dr. Jose on 08-08-2022 Protein Ql (U) 30 mg/dl Negative [facility] RBC morphologyOrdered By: Dr Neville Jose on 08-08-2022 RBC morphology finding Nom (Bld) NORM C+C NORMAL NORM C&C [facility] Serum or plasma albumin jenna urement (mass/volume)Ordered By: Dr. Jose on 08-08-2022 Albumin [Mass/Vol] 3.6 g/dL 3.2-5.0 [facility] Serum or plasma albumin/glob ulin mass ratioOrdered By: Dr. Jose on 08-08-2022 Albumin/Globulin [Mass ratio] 1.0 {ratio} 0.9-2.4 [facility] Serum or plasma calcium jenna urement (mass/volume)Ordered By: Dr. Jose on 08-08-2022 Calcium [Mass/Vol] 9.4 mg/dL 8.5-10.1 [facility] Serum or plasma creatinine m easurement (mass/volume)Ordered By: Dr. Jose on 08-08-2022 Creatinine [Mass/Vol] 1.81 mg/dL 0.70-1.30 [facility] Comment on above: The validity of the calculated GFR & GFRAA in patients over 70 years has not been determined. Clinical correlation is essential. Serum or plasma urea nitroge n measurement (mass/volume)Ordered By: Dr. Jose on 08-08-2022 Urea nitrogen [Mass/Vol] 20 mg/dL 7-18 [facility] Squamous epithelial cells de tection in urine sediment by light microscopyOrdered By: Dr. Jose on 08-08-2022 Epithelial cells.squamous LM Ql (Urine sed) 0 SEEN /hpf 0-5 [facility] Thin prep Papanicolaou smear with manual screeningOrdered By: Dr. Jose on 08-08-2022 Thin prep Papanicolaou smear with manual screening 20 U/L 15-37 [facility] Thin prep Papanicolaou smear with manual screening 9 5-15 [facility] Urine blood detectionOrdered By: Dr. Jose on 08-08-2022 RBC Ql (U) Negative Negative [facility] RBC Ql (U) 0 SEEN /hpf 0-5 [facility] Urine clarityOrdered By: Dr. Jose on 08-08-2022 Clarity (U) Clear Clear [facility] Urine color determinationOrd ered By: Dr. Jose on 08-08-2022 Color (U) Yellow Yellow [facility] Urine glucose detectionOrder ed By: Dr. Jose on 08-08-2022 Glucose Ql (U) Normal mg/dl Normal [facility] Urine leukocyte esterase det ection by dipstickOrdered By: Dr. Jose on 08-08-2022 Leukocyte esterase Test strip Ql (U) 25 /ul Negative [facility] Urine pHOrdered By: Dr. Jade palacios on 08-08-2022 pH (U) 5.0 [pH] 5.0 - 8.0 [facility] Urine sediment bacteria coun t by microscopy (number/high power field)Ordered By: Dr. Jose on 08-08-2022 Bacteria LM.HPF (Urine sed) [#/Area] 0 /[HPF] None Seen [facility] Urine specific gravity measu rementOrdered By: Dr. Jose on 08-08-2022 Specific gravity (U) [Rel density] 1.025 1.002-1.030 [facility] Urobilinogen Auto test strip Ql (U)Ordered By: Dr. Jose on 08-08-2022 Urobilinogen Ql (U) 1 mg/dl Normal [facility] Absolute lymphocyte countOrd ered By: Nick Maguire on 07-26-2022 Lymphocytes Auto (Unsp spec) [#/Vol] 1.01 10*3/uL 0.83-4.51 [facility] Basophil percentageOrdered B y: Nick Maguire on 07-26-2022 Basophil percentage 2.9 mg/dL 2.5-4.9 [facility] Basophils (Bld) [#/Vol] 8.3 10*3/uL 4.4-11.0 [facility] Basophils (Bld) [#/Vol] 6.0 10*3/uL 2.0-7.7 [facility] Basophils/100 WBC (Bld) 1.1 % 0-1 [facility] Basophils/100 WBC (Bld) 72.1 % 47-70 [facility] Basophils/100 WBC (Bld) 6.3 % 0-5 [facility] Eosinophils/100 WBC (Bld) 6.3 % 0-5 [facility] Neutrophils (Bld) [#/Vol] 6.0 10*3/uL 2.0-7.7 [facility] Neutrophils/100 WBC (Bld) 72.1 % 47-70 [facility] WBC (Bld) [#/Vol] 8.3 10*3/uL 4.4-11.0 [facility] Basophil percentageOrdered B y: Tiki Saldivar on 07-26-2022 Basophil percentage 102 mg/dL 74-106 [facility] Basophil percentage 142 mmol/L 136-145 [facility] Basophil percentage 4.0 mmol/L 3.5-5.1 [facility] Basophil percentage 112 mmol/L 98-107 [facility] Basophil percentageOrdered B y: Dr. Saldivar on 07-26-2022 Chloride [Moles/Vol] 112 mmol/L 98-107 [facility] Glucose [Mass/Vol] 102 mg/dL 74-106 [facility] Comment on above: Fasting Glucose resu lt from 100 to 125 mg/dL suggests IMPAIRED HOMEOSTASIS per A.D.A. criteria. Potassium [Moles/Vol] 4.0 mmol/L 3.5-5.1 [facility] Sodium [Moles/Vol] 142 mmol/L 136-145 [facility] Blood erythrocytes count (nu mber/volume)Ordered By: Nick Maguire on 07-26-2022 RBC (Bld) [#/Vol] 4.26 10*6/uL 4.6-6.2 [facility] Blood hemoglobin measurement (mass/volume)Ordered By: Nick Maguire on 07-26-2022 Hemoglobin (Bld) [Mass/Vol] 11.9 g/dL 13.0-16.5 [facility] Blood lymphocytes/100 leukoc ytesOrdered By: Nick Maguire on 07-26-2022 Lymphocytes/100 WBC (Bld) 12.2 % 19-41 [facility] Blood monocytes/100 leukocyt esOrdered By: Nick Maguire on 07-26-2022 Monocytes/100 WBC (Bld) 8.1 % 0-10 [facility] Blood platelet mean volumeOr dered By: Nick Maguire on 07-26-2022 Platelet mean volume (Bld) [Entitic vol] 10.6 fL 6.2-12.0 [facility] Determination of erythrocyte mean corpuscular volume (MCV)Ordered By: Nick Maguire on 07-26-2022 MCV (RBC) [Entitic vol] 90.4 fL 80-94 [facility] Hematocrit Auto (Bld) [Volum e fraction]Ordered By: Nick Maguire on 07-26-2022 Hematocrit (Bld) [Volume fraction] 38.5 % 40-54 [facility] Laboratory - Chemistry and C hemistry - challengeOrdered By: Dr. Saldivar on 07-26-2022 CO2 [Moles/Vol] 27.0 mmol/L 21.0-32.0 [facility] Urea nitrogen/Creatinine [Mass ratio] 15.2 mg/mg 10-20 [facility] Laboratory - Chemistry and C hemistry - challengeOrdered By: Nick Maguire on 07-26-2022 Magnesium [Mass/Vol] 2.1 mg/dL 1.6-2.6 [facility] Laboratory - Hematology and Cell countsOrdered By: Nick Maguire on 07-26-2022 Erythrocyte distribution width (RBC) [Entitic vol] 52.0 fL 35.1-43.9 [facility] Erythrocyte distribution width (RBC) [Ratio] 15.9 % 11.6-14.6 [facility] Immature granulocytes/100 WBC (Bld) 0.200 % 0.0-0.9 [facility] Comment on above: IG% - Immature Granu locytes (promyelocytes, myelocytes and metamyelocytes) > 1% indicates that a LEFT SHIFT is Present. MCH (RBC) [Entitic mass] 27.9 pg 27.0-32.0 [facility] Nucleated RBC/100 WBC (Bld) [Ratio] 0 % 0-5 [facility] MCHC Auto (RBC) [Mass/Vol]Or dered By: Nick Maguire on 07-26-2022 MCHC (RBC) [Mass/Vol] 30.9 g/dL 32-36 [facility] No Panel InformationOrdered By: Dr. Saldivar on 07-26-2022 Estimated Creatinine Clearance Calc 37.69 ml/min [facility] Estimated GFR (MDRD) Amer 58 mL/min >60 [facility] Comment on above: GFR Calc Estimated GFR (MDRD) Non-Af Amer 48 mL/min >60 [facility] Comment on above: Non- GFR Calc No Panel InformationOrdered By: Nick Maguire on 07-26-2022 27.9 pg 27.0-32.0 [facility] 15.9 % 11.6-14.6 [facility] 52.0 fl 35.1-43.9 [facility] 0.200 % 0.0-0.9 [facility] 0 % 0-5 [facility] 2.1 mg/dL 1.6-2.6 [facility] No Panel InformationOrdered By: Tiki Saldivar on 07-26-2022 48 mL/min >60 [facility] 58 mL/min >60 [facility] 37.69 ml/min [facility] 15.2 RATIO 10-20 [facility] 27.0 mmol/L 21.0-32.0 [facility] Platelets bldOrdered By: Jasmyn Maguire on 07-26-2022 Platelets (Bld) [#/Vol] 339 10*3/uL 150-450 [facility] Serum or plasma calcium jenna urement (mass/volume)Ordered By: Dr. Saldivar on 07-26-2022 Calcium [Mass/Vol] 8.7 mg/dL 8.5-10.1 [facility] Serum or plasma creatinine m easurement (mass/volume)Ordered By: Dr. Saldivar on 07-26-2022 Creatinine [Mass/Vol] 1.51 mg/dL 0.70-1.30 [facility] Comment on above: The validity of the calculated GFR & GFRAA in patients over 70 years has not been determined. Clinical correlation is essential. Serum or plasma urea nitroge n measurement (mass/volume)Ordered By: Dr. Saldivar on 07-26-2022 Urea nitrogen [Mass/Vol] 23 mg/dL 7-18 [facility] Thin prep Papanicolaou smear with manual screeningOrdered By: Dr. Saldivar on 07-26-2022 Thin prep Papanicolaou smear with manual screening 3 5-15 [facility] Absolute lymphocyte countOrd ered By: Dr. Eli on 07-25-2022 Lymphocytes Auto (Unsp spec) [#/Vol] 0.62 10*3/uL 0.83-4.51 [facility] Basophil percentageOrdered B y: Dr. Eli on 07-25-2022 Basophil percentage 0-5 SEEN /hpf 0-5 [facility] Basophils/100 WBC (Bld) 0.6 % 0-1 [facility] Bilirubin [Mass/Vol] 0.70 mg/dL 0.20-1.00 [facility] Comment on above: For patients on eltr ombopag therapy, use of Dimension [place] TBIL is not recommended. Chloride [Moles/Vol] 106 mmol/L 98-107 [facility] Eosinophils/100 WBC (Bld) 0.8 % 0-5 [facility] Glucose [Mass/Vol] 151 mg/dL 74-106 [facility] Comment on above: Fasting Glucose resu lt greater than or equal to 126 mg/dL suggests DIABETES MELLITUS per A.D.A. criteria. Neutrophils (Bld) [#/Vol] 15.1 10*3/uL 2.0-7.7 [facility] Neutrophils/100 WBC (Bld) 89.5 % 47-70 [facility] Potassium [Moles/Vol] 4.6 mmol/L 3.5-5.1 [facility] Protein [Mass/Vol] 7.5 g/dL 6.4-8.2 [facility] Sodium [Moles/Vol] 139 mmol/L 136-145 [facility] WBC (Bld) [#/Vol] 16.8 10*3/uL 4.4-11.0 [facility] Basophil percentageOrdered B y: Barney Eli on 07-25-2022 Basophil percentage 7.5 g/dL 6.4-8.2 [facility] Basophil percentage 0.70 mg/dL 0.20-1.00 [facility] Bilirubin Test strip Ql (U)O rdered By: Dr. Eli on 07-25-2022 Bilirubin Ql (U) Negative Negative [facility] Blood erythrocytes count (nu mber/volume)Ordered By: Dr. Eli on 07-25-2022 RBC (Bld) [#/Vol] 5.37 10*6/uL 4.6-6.2 [facility] Blood hemoglobin measurement (mass/volume)Ordered By: Dr. Eli on 07-25-2022 Hemoglobin (Bld) [Mass/Vol] 15.1 g/dL 13.0-16.5 [facility] Blood lymphocytes/100 leukoc ytesOrdered By: Dr. Eli on 07-25-2022 Lymphocytes/100 WBC (Bld) 3.7 % 19-41 [facility] Blood monocytes/100 leukocyt esOrdered By: Dr. Eli on 07-25-2022 Monocytes/100 WBC (Bld) 4.8 % 0-10 [facility] Blood platelet mean volumeOr dered By: Dr. Eli on 07-25-2022 Platelet mean volume (Bld) [Entitic vol] 10.4 fL 6.2-12.0 [facility] Determination of erythrocyte mean corpuscular volume (MCV)Ordered By: Dr. Eli on 07-25-2022 MCV (RBC) [Entitic vol] 87.3 fL 80-94 [facility] Hematocrit Auto (Bld) [Volum e fraction]Ordered By: Dr. Eli on 07-25-2022 Hematocrit (Bld) [Volume fraction] 46.9 % 40-54 [facility] Ketones Test strip Ql (U)Ord ered By: Dr. Eli on 07-25-2022 Ketones Ql (U) Negative Negative [facility] Laboratory - Chemistry and C hemistry - challengeOrdered By: Dr. Eli on 07-25-2022 ALP [Catalytic activity/Vol] 97 U/L 45-117 [facility] ALT [Catalytic activity/Vol] 28 U/L 16-61 [facility] CO2 [Moles/Vol] 27.0 mmol/L 21.0-32.0 [facility] Globulin (S) [Mass/Vol] 3.4 g/dL 2.2-4.2 [facility] Lipase [Catalytic activity/Vol] 184 U/L 73-393 [facility] Urea nitrogen/Creatinine [Mass ratio] 16.8 mg/mg 10-20 [facility] Laboratory - Hematology and Cell countsOrdered By: Dr. Eli on 07-25-2022 Erythrocyte distribution width (RBC) [Entitic vol] 50.4 fL 35.1-43.9 [facility] Erythrocyte distribution width (RBC) [Ratio] 15.8 % 11.6-14.6 [facility] Immature granulocytes/100 WBC (Bld) 0.600 % 0.0-0.9 [facility] Comment on above: IG% - Immature Granu locytes (promyelocytes, myelocytes and metamyelocytes) > 1% indicates that a LEFT SHIFT is Present. MCH (RBC) [Entitic mass] 28.1 pg 27.0-32.0 [facility] Nucleated RBC/100 WBC (Bld) [Ratio] 0 % 0-5 [facility] MCHC Auto (RBC) [Mass/Vol]Or dered By: Dr. Eli on 07-25-2022 MCHC (RBC) [Mass/Vol] 32.2 g/dL 32-36 [facility] Mucus LM Ql (Urine sed)Order ed By: Dr. Eli on 07-25-2022 Mucus Ql (Urine sed) 0 SEEN /hpf [facility] Nitrite Test strip Ql (U)Ord ered By: Dr. Eli on 07-25-2022 Nitrite Ql (U) Negative Negative [facility] No Panel InformationOrdered By: Dr. Eli on 07-25-2022 Estimated Creatinine Clearance Calc 30.36 ml/min [facility] Estimated GFR (MDRD) Amer 47 mL/min >60 [facility] Comment on above: GFR Calc Estimated GFR (MDRD) Non-Af Amer 39 mL/min >60 [facility] Comment on above: Non- GFR Calc No Panel InformationOrdered By: Barney Eli on 07-25-2022 3.4 g/dL 2.2-4.2 [facility] 184 U/L 73-393 [facility] 97 U/L 45-117 [facility] 28 U/L 16-61 [facility] Platelets bldOrdered By: Dr. Eli on 07-25-2022 Platelets (Bld) [#/Vol] 435 10*3/uL 150-450 [facility] Protein Test strip Ql (U)Ord ered By: Dr. Eli on 07-25-2022 Protein Ql (U) 30 mg/dl Negative [facility] Serum or plasma albumin jenna urement (mass/volume)Ordered By: Dr. Eli on 07-25-2022 Albumin [Mass/Vol] 4.1 g/dL 3.2-5.0 [facility] Serum or plasma albumin/glob ulin mass ratioOrdered By: Dr. Eli on 07-25-2022 Albumin/Globulin [Mass ratio] 1.2 {ratio} 0.9-2.4 [facility] Serum or plasma calcium jenna urement (mass/volume)Ordered By: Dr. Eli on 07-25-2022 Calcium [Mass/Vol] 10.5 mg/dL 8.5-10.1 [facility] Serum or plasma creatinine m easurement (mass/volume)Ordered By: Dr. Eli on 07-25-2022 Creatinine [Mass/Vol] 1.79 mg/dL 0.70-1.30 [facility] Comment on above: The validity of the calculated GFR & GFRAA in patients over 70 years has not been determined. Clinical correlation is essential. Serum or plasma urea nitroge n measurement (mass/volume)Ordered By: Dr. Eli on 07-25-2022 Urea nitrogen [Mass/Vol] 30 mg/dL 7-18 [facility] Squamous epithelial cells de tection in urine sediment by light microscopyOrdered By: Dr. Eli on 07-25-2022 Epithelial cells.squamous LM Ql (Urine sed) 0 SEEN /hpf 0-5 [facility] Thin prep Papanicolaou smear with manual screeningOrdered By: Dr. Eli on 07-25-2022 Thin prep Papanicolaou smear with manual screening 28 U/L 15-37 [facility] Thin prep Papanicolaou smear with manual screening 6 5-15 [facility] Urine blood detectionOrdered By: Dr. Eli on 07-25-2022 RBC Ql (U) Negative Negative [facility] RBC Ql (U) 0 SEEN /hpf 0-5 [facility] Urine clarityOrdered By: Dr. Eli on 07-25-2022 Clarity (U) Clear Clear [facility] Urine color determinationOrd ered By: Dr. Eli on 07-25-2022 Color (U) Yellow Yellow [facility] Urine glucose detectionOrder ed By: Dr. Eli on 07-25-2022 Glucose Ql (U) Normal mg/dl Normal [facility] Urine leukocyte esterase det ection by dipstickOrdered By: Dr. Eli on 07-25-2022 Leukocyte esterase Test strip Ql (U) 25 /ul Negative [facility] Urine pHOrdered By: Dr. Cristiano urbano on 07-25-2022 pH (U) 6.5 [pH] 5.0 - 8.0 [facility] Urine sediment bacteria coun t by microscopy (number/high power field)Ordered By: Dr. Eli on 07-25-2022 Bacteria LM.HPF (Urine sed) [#/Area] 0 /[HPF] None Seen [facility] Urine specific gravity measu rementOrdered By: Dr. Eli on 07-25-2022 Specific gravity (U) [Rel density] 1.015 1.002-1.030 [facility] Urobilinogen Auto test strip Ql (U)Ordered By: Dr. Eli on 07-25-2022 Urobilinogen Ql (U) Normal mg/dl Normal [facility] CNPNon 07-14-2022 CNPN Telephone (UROLWS) BETTE CLEMENTS ([id number]) 1945 M Date Time Provider Department 07/14/22 URIAH MCARTHUR UROLWS During your visit today, we recorded the following information about you: Uriah Mcarthur PA-C 07/14/2022 9:56 AM Signed Please let patient know his repeat PSA Is > 100.00 and the IsoPSA was not performed due to high PSA A prostate biopsy is the recommend next step to diagnosis prostate cancer. Let me know if he wishes to go forward with biopsy [place] or [place] I did already talk in detail about this being a possibility so he was knows but was going to think about it. Uriah Mcarthur, [place], [place], CECILIA Cartre LPN 07/14/2022 11:03 AM Signed Called patient. Verified name and date of . Patient informed and verbalizes understanding. States he has thought about it and wants to use Dr. Meirda with [facility]. Reports his health is poor and is followed primarily by providers at [facility]. Lyubov Carter LPN Allergies As of [...] specific antigen (PSA) [R97.20] Order(s):PROSTATE BIOPSY BLADE [[id number]] Order #: [id number] Prescriptions as of 07/14/2022 - mirtazapine (REMERON) 15 mg tablet Take 15 mg by mouth daily at bedtime. - ipratropium 20 mcg-albuterol 100 mcg (COMBIVENT RESPIMAT) 20-100 mcg/actuation inhaler NEEDED - fluticasone (FLONASE) 50 mcg/actuation nasal spray Use 1 [place] in each nostril once daily. - verapamil [...] instructed every 6 hours as needed. - Cyppqpuxdfc-Yhdpiphio-Y it C-Mn (GLUCOSAMINE CHONDROITIN MAXSTR) 500-400 mg [...] [Z85.048] 0 (more content not included)... Normal [facility] ISOPSA ASSAY FOR UROLOGY USE ONLYon 07-13-2022 Interpretation IsoPSA test was not performed, as the test has not been validated in patients with tPSA >100.0ng/mL. Test Performed by [facility], [address] [place], [place] [id number] [facility] IsoPSA Not performed [facility] TPSA Results >100.0 [facility] ISOPSA ASSAY FOR UROLOGY USE ONLYon 07-10-2022 INTERPRETATION Normal [facility] Comment on above: Order Comment: Speci men Type: BLOOD SPECIMEN Ordering Facility: [facility] Address: [address] [place] [address] Result Comment: IsoP SA test was not performed, as the test has not been validated in patients with tPSA >100.0ng/mL. Test Performed by [facility], [address] [place], [place] [id number] Performed By: #### I SOPSA #### [facility] CLIA [id number] [address] [place], [place] [address] [place] [id number] ISOPSA INDEX Not performed Normal [facility] Comment on above: Order Comment: Speci men Type: BLOOD SPECIMEN Ordering Facility: [facility] Address: [address] [place] [address] Performed By: #### I SOPSA #### [facility] CLIA [id number] [address] [place], [place] [address] [place] [id number] TPSA RESULTS >100.0 Normal [facility] Comment on above: Order Comment: Speci men Type: BLOOD SPECIMEN Ordering Facility: [facility] Address: [address] [place] [address] Performed By: #### I SOPSA #### [facility] CLIA [id number] [address] [place], [place] [address] [place] [id number] UA DIP, URINE (POC)on 2022 BILIRUBIN UA (POCT) Negative Negative [facility] CLARITY UA (POCT) Clear [facility] COLOR UA (POCT) Yellow [facility] GLUCOSE UA (POCT) Negative Negative mg/dL [facility] HEMOGLOBIN/BLOOD UA (POCT) Negative Negative [facility] KETONE UA (POCT) Negative Negative mg/dL [facility] LEUKOCYTES UA (POCT) Negative Negative [facility] NITRITE UA (POCT) Negative Negative [facility] PH UA (POCT) 5.5 4.5 - 8.0 [facility] Protein Ql (U) Negative Negative mg/dL [facility] SPECIFIC GRAVITY UA (POCT) 1.020 1.005 - 1.030 [facility] UROBILINOGEN UA (POCT) 0.2 E.U./dL Dolores l E.U./dL [facility] Absolute lymphocyte countOrd ered By: Dr. Sanchez on 07-06-2022 Lymphocytes Auto (Unsp spec) [#/Vol] 1.10 10*3/uL 0.83-4.51 [facility] Basophil percentageOrdered B y: Dr. Sanchez on 07-06-2022 Basophils/100 WBC (Bld) 1.1 % 0-1 [facility] Bilirubin [Mass/Vol] 0.60 mg/dL 0.20-1.00 [facility] Comment on above: For patients on eltr ombopag therapy, use of Dimension [place] TBIL is not recommended. Chloride [Moles/Vol] 104 mmol/L 98-107 [facility] Eosinophils/100 WBC (Bld) 9.0 % 0-5 [facility] Glucose [Mass/Vol] 101 mg/dL 74-106 [facility] Comment on above: Fasting Glucose resu lt from 100 to 125 mg/dL suggests IMPAIRED HOMEOSTASIS per A.D.A. criteria. Neutrophils (Bld) [#/Vol] 6.0 10*3/uL 2.0-7.7 [facility] Neutrophils/100 WBC (Bld) 70.0 % 47-70 [facility] Potassium [Moles/Vol] 4.1 mmol/L 3.5-5.1 [facility] Protein [Mass/Vol] 7.0 g/dL 6.4-8.2 [facility] Sodium [Moles/Vol] 139 mmol/L 136-145 [facility] WBC (Bld) [#/Vol] 8.5 10*3/uL 4.4-11.0 [facility] Blood erythrocytes count (nu mber/volume)Ordered By: Dr. Sanchez on 07-06-2022 RBC (Bld) [#/Vol] 4.92 10*6/uL 4.6-6.2 [facility] Blood hemoglobin measurement (mass/volume)Ordered By: Dr. Sanchez on 07-06-2022 Hemoglobin (Bld) [Mass/Vol] 13.5 g/dL 13.0-16.5 [facility] Blood lymphocytes/100 leukoc ytesOrdered By: Dr. Sanchez on 07-06-2022 Lymphocytes/100 WBC (Bld) 12.9 % 19-41 [facility] Blood monocytes/100 leukocyt esOrdered By: Dr. Sanchez on 07-06-2022 Monocytes/100 WBC (Bld) 6.8 % 0-10 [facility] Blood platelet mean volumeOr dered By: Dr. Sanchez on 07-06-2022 Platelet mean volume (Bld) [Entitic vol] 10.8 fL 6.2-12.0 [facility] Determination of erythrocyte mean corpuscular volume (MCV)Ordered By: Dr. Sanchez on 07-06-2022 MCV (RBC) [Entitic vol] 87.2 fL 80-94 [facility] Hematocrit Auto (Bld) [Volum e fraction]Ordered By: Dr. Sanchez on 07-06-2022 Hematocrit (Bld) [Volume fraction] 42.9 % 40-54 [facility] Laboratory - Chemistry and C hemistry - challengeOrdered By: Dr. Sanchez on 07-06-2022 ALP [Catalytic activity/Vol] 88 U/L 45-117 [facility] ALT [Catalytic activity/Vol] 24 U/L 16-61 [facility] CO2 [Moles/Vol] 28.0 mmol/L 21.0-32.0 [facility] Globulin (S) [Mass/Vol] 3.4 g/dL 2.2-4.2 [facility] Urea nitrogen/Creatinine [Mass ratio] 16.8 mg/mg 10-20 [facility] Laboratory - Hematology and Cell countsOrdered By: Dr. Sanchez on 07-06-2022 Erythrocyte distribution width (RBC) [Entitic vol] 50.2 fL 35.1-43.9 [facility] Erythrocyte distribution width (RBC) [Ratio] 15.7 % 11.6-14.6 [facility] Immature granulocytes/100 WBC (Bld) 0.200 % 0.0-0.9 [facility] Comment on above: IG% - Immature Granu locytes (promyelocytes, myelocytes and metamyelocytes) > 1% indicates that a LEFT SHIFT is Present. MCH (RBC) [Entitic mass] 27.4 pg 27.0-32.0 [facility] Nucleated RBC/100 WBC (Bld) [Ratio] 0 % 0-5 [facility] MCHC Auto (RBC) [Mass/Vol]Or dered By: Dr. Sanchez on 07-06-2022 MCHC (RBC) [Mass/Vol] 31.5 g/dL 32-36 [facility] No Panel InformationOrdered By: Dr. Sanchez on 07-06-2022 Estimated GFR (MDRD) Amer 54 mL/min >60 [facility] Comment on above: GFR Calc Estimated GFR (MDRD) Non-Af Amer 44 mL/min >60 [facility] Comment on above: Non- GFR Calc Prostate Specific Antigen Screen 158.00 ng/mL 0.00-4.00 [facility] Comment on above: This test was perfor med using the TPSA assay method for thesmsPREP chemistry system. Values obtained with differentassay methods cannot be used interchangably.When changing PSA assays in the course of monitoring apatient, additional sequential testing should be carriedout to confirm baseline values. Platelets bldOrdered By: Dr. Sanchez on 07-06-2022 Platelets (Bld) [#/Vol] 392 10*3/uL 150-450 [facility] Serum or plasma albumin jenna urement (mass/volume)Ordered By: Dr. Sanchez on 07-06-2022 Albumin [Mass/Vol] 3.6 g/dL 3.2-5.0 [facility] Serum or plasma albumin/glob ulin mass ratioOrdered By: Dr. Sanchez on 07-06-2022 Albumin/Globulin [Mass ratio] 1.1 {ratio} 0.9-2.4 [facility] Serum or plasma calcium jenna urement (mass/volume)Ordered By: Dr. Sanchez on 07-06-2022 Calcium [Mass/Vol] 9.6 mg/dL 8.5-10.1 [facility] Serum or plasma creatinine m easurement (mass/volume)Ordered By: Dr. Sanchez on 07-06-2022 Creatinine [Mass/Vol] 1.61 mg/dL 0.70-1.30 [facility] Comment on above: The validity of the calculated GFR & GFRAA in patients over 70 years has not been determined. Clinical correlation is essential. Serum or plasma urea nitroge n measurement (mass/volume)Ordered By: Dr. Sanchez on 07-06-2022 Urea nitrogen [Mass/Vol] 27 mg/dL 7-18 [facility] Thin prep Papanicolaou smear with manual screeningOrdered By: Dr. Sanchez on 07-06-2022 Thin prep Papanicolaou smear with manual screening 14 U/L 1537 [facility] Thin prep Papanicolaou smear with manual screening 7 5-15 [facility] Basophil percentageOrdered B y: Dr. Rodríguez on 05-19-2022 Creatinine [Mass/Vol] 1.1 mg/dL 0.70-1.30 [facility] No Panel InformationOrdered By: Dr. Rodríguez on 05-19-2022 Bedside Estimated GFR (eGFR) > 60.0000 mL/min >60 [facility] No Panel InformationOrdered By: Dr. Sanchez on 03-25-2022 Miscellaneous Test See comment [facility] Comment on above: TEST RESULT LIMITSBe nzodiazepine Conf, MS, UR Benzodiazepines Negative Jqrbfa=300 TESTING PERFORMED AT [facility]. ORIGINAL REPORT ON FILE IN LAB CONTAINS ADDITIONAL TEST SITE INFORMATION. Laboratory - Drug toxicology on 12-29-2021 Amphetamines Ql (U) Negative <1000 ng/mL [facility] Work Phone: Benzodiazepines Ql (U) Negative < 200 ng/mL [facility] Work Phone: Cannabinoids Screen Ql (U) Negative < 50 ng/mL [facility] Work Phone: Cocaine Ql (U) Negative < 300 ng/mL [facility] Work Phone: Opiates Ql (U) Negative < 300 ng/mL [facility] Work Phone: No Panel Informationon 12-29 MDMA (Ecstasy) Screen Negative < 500 ng/mL [facility] Work Phone: Urine Barbiturates Screen Negative < 200 ng/mL [facility] Work Phone: Urine Drug Screen Comment [facility] Work Phone: Comment on above: CONFIRMATORY TESTING [...] Methadone Screen Negative < 300 ng/mL [facility] Work Phone: Urine Benzodiazepine Confirmation Negative Bzeamk=209 [facility] Work Phone: Comment on above: Performed at: - [facility] OTS [id number] [facility], [place], [place] [id number] Director: Belle Alicea PhD, Phone: [phone] Urine phencyclidine (PCP) de tectionon 12-29-2021 Phencyclidine Ql (U) Negative < 25 ng/mL [facility] Work Phone: ACT,Whole Bloodon 06-07-2020 ACT,Whole Blood 202 s High 90-134 [facility] Comment on above: Result Comment: ACTB O Performed by [employer] Elite[employer]IA ID: [id number] [place], [place] ACT testing is not intended for patients taking aprotonin, patients with hematocrits of <20% or >55%, patients using other types of anticoagulation medications, and patients with Lupus Anticoagulant. Performed By: #### A CTBO #### [facility] [address] [place] [address] ACT,Whole Blood 271 s High 90-134 [facility] Comment on above: Result Comment: ACTB O Performed by [employer] ID: [id number] [place], [place] ACT testing is not intended for patients taking aprotonin, patients with hematocrits of <20% or >55%, patients using other types of anticoagulation medications, and patients with Lupus Anticoagulant. Performed By: #### A CTBO #### [facility] [address] [place] [address] Activated clotting timeon Activated Clotting Time 202 s High 90 - 134 s [place], [place] Comment on above: ACTBO Performed by [employer] ID: [id number] [place], [place] ACT testing is not intended for patients taking aprotonin, patients with hematocrits of <20% or >55%, patients using other types of anticoagulation medications, and patients with Lupus Anticoagulant. Activated Clotting Time 271 s High 90 - 134 s [place], [place] Comment on above: ACTBO Performed by [employer] ID: [id number] [place], [place] ACT testing is not intended for patients taking aprotonin, patients with hematocrits of <20% or >55%, patients using other types of anticoagulation medications, and patients with Lupus Anticoagulant. Basic Metabolic Panelon Anion gap [Moles/Vol] 10 Normal [facility] Comment on above: Performed By: #### B MP3 #### [facility] [address] [place] [address] Calcium [Mass/Vol] 9.7 mg/dL Normal 8.4-10.4 [facility] Comment on above: Performed By: #### B MP3 #### [facility] [address] [place] [address] CO2 [Moles/Vol] 25 mmol/L Normal 22-30 [facility] Comment on above: Performed By: #### B MP3 #### [facility] [address] [place] [address] Glucose [Mass/Vol] 121 mg/dL High 70-100 [facility] Comment on above: Performed By: #### B MP3 #### [facility] [address] [place] [address] Urea nitrogen [Mass/Vol] 22 mg/dL High 7-20 [facility] Comment on above: Performed By: #### B MP3 #### [facility] [address] [place], [place] Creatinine [Mass/Vol] 1.30 mg/dL High 0.52-1.25 [facility] Comment on above: Performed By: #### B MP3 #### [facility] [address] [place] [address] GFR/1.73 sq M predicted among blacks MDRD (S/P/Bld) [Vol rate/Area] 61.4 mL/min/{1.73_m2} Normal >60 [facility] Comment on above: Performed By: #### B MP3 #### [facility] [address] [place] [address] GFR/1.73 sq M predicted among non-blacks MDRD (S/P/Bld) [Vol rate/Area] 52.9 mL/min/{1.73_m2} Abnormal >60 [facility] Comment on above: Result Comment: KDIG [...] secretion. Performed By: #### B MP3 #### [facility] [address] [place] [address] Chloride [Moles/Vol] 107 mmol/L Normal 98-107 [facility] Comment on above: Performed By: #### B MP3 #### [facility] [address] [place] [address] Potassium [Moles/Vol] 3.6 mmol/L Normal 3.5-5.1 [place], [place] Comment on above: Performed By: #### B MP3 #### [place] [address] [place] [address] Sodium [Moles/Vol] 142 mmol/L Normal 135-145 [place], [place] Comment on above: Performed By: #### B MP3 #### [place] [address] [place] [address] Anion gap [Moles/Vol] 10 mmol/L [place], [place] Calcium [Mass/Vol] 9.7 mg/dL 8.4 - 10. 4 mg/dL [place], [place] Chloride [Moles/Vol] 107 mmol/L 98 - 10 7 mmol/L [place] CO2 [Moles/Vol] 25 mmol/L 22 - 30 mmol/L [place] Creatinine [Mass/Vol] 1.3 mg/dL High 0.52 - 1.25 mg/dL [place], [place] EGFR IF NonAfrican [place] Islander 52.9 mL/min Abnormal >60 [place] Comment on above: KDIGO guidelines pro [...] MDRD (S/P/Bld) [Vol rate/Area] 61.4 mL/min/{1.73_m2} >60 [place] Glucose [Mass/Vol] 121 mg/dL High 70 - 100 mg/dL [place] Interpretation and review of laboratory results Abnormal [place] Urea nitrogen [Mass/Vol] 22 mg/dL High 7 - 20 mg/dL [place] Test Performed by [facility], [address] [place] [address] [place], [place] Diagnostic Cardiac Dye Mixer Procedureon 06-07-2020 [facility] -- CARDIAC CATHETERIZATION Patient: Bette [...] stent ( 2.75 mm- 2.5 mm) 3. CLEAT BLANKER of the RCA with recanalized proximal RCA [...] is a residual 0% stenosis with TI MN grade 3 flow (brisk flow). LCx posterolateral [...] signed by Denis Rodriguez MD 06/07/2020 11:22 [facility] Incoming Cardiology Results From Mono/Richard - 06/07/2020 11:22 AM EST [facility] -- CARDIAC CATHETERIZATION Patient: Bette [...] stent ( 2.75 mm- 2.5 mm) 3. CLEAT BLANKER of the RCA with recanalized proximal RCA [...] is a residual 0% stenosis with TI MN grade 3 flow (brisk flow). LCx posterolateral [...] signed by Denis Rodriguez MD 06/07/2020 11:22 [facility]2020 Interpretation and review of laboratory results Abnormal [facility] Test Performed by [facility], [address] [place] [address] [facility] 06-20-2019 CNTHERAPY OT/PT/Speech Visit ([facility]) BETTE CLEMENTS ([id number]) 1945 M Date Time Provider Department 06/20/19 1:45 PM [facility] Provider Department Center 06/20/2019 1:45 PM [id number] MCKEE [facility]: [facility] Discharge [...] * Inhale 1 Puff as instructed e* [id number] IT C-M* Take 2 capsules by mouth once* PIROXICAM 10 MG CAPSULE Take 1 capsule by mouth once * NITROGLYCERIN 0.4 MG SUBLINGU* Dissolve 1 tablet under the t* Patient not taking: Reported on 05/09/2019 GARLIC CAPSULE Take one(1) capsule daily. OTC NUTRITIONAL SUPPLEMENT red yeast rice 1200 mg daily Progress Notes: Moises Mckee OT/Mandeep 06/20/2019 2:09 PM Signed Episode [...] to 06/20/2019 and treatment included: Therapeutic exercise, Self-senior living management, Modalities and Custom orthosis fabrication. 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 Billing: Mildred: Therapeutic Exercise (77338): 1:1 time:30 minutes (2 units: 23-37 mins) Fluidotherapy (62837) 1 unit(s) Total time: 40 minutes Moises Mckee OT/LCHT Normal [facility] PROGRESSon 06-20-2019 PROGRESS HNO ID: [id number] Author: Moises Mckee Service: ? Author Type: Occupational Therapist [...] to 06/20/2019 and treatment included: Therapeutic exercise, Self-senior living management, Modalities and Custom orthosis fabrication. Patient [...] Left Limitation Thumb AROM: Left Limitation Strength: Platinum Smith Position 2;Pinch Meter Hand Strength L Platinum Smith Position 2 (lbs): 60 lbs L Lateral [...] and opposition 3: with medium soft putty director of enterprise applications digit ext roll digit flexion and tripod [...] needs. Patient response monitored throughout treatment. Billing: [place]: Therapeutic Exercise (98033): 1:1 time:30 minutes (2 units: 23-37 mins) Fluidotherapy (97579) 1 unit(s) Total time: 40 minutes Moises Mckee OT/[facility] CNTHERAPYon 05-30-2019 CNTHERAPY OT/PT/Speech Visit ([facility]) BETTE CLEMENTS ([id number]) 1945 M Date Time Provider Department 05/30/19 1:45 PM MOISES MCKEE (OT) [facility] Date Time Provider Department Center 05/30/2019 1:45 PM [id number] MCKEE [facility] Reason for Visit: Occupational Therapy [...] * Inhale 1 Puff as instructed e* [id number] IT C-M* Take 2 capsules by mouth once* PIROXICAM 10 MG CAPSULE Take 1 capsule by mouth once * NITROGLYCERIN 0.4 MG SUBLINGU* Dissolve 1 tablet under the t* Patient not taking: Reported on 05/09/2019 GARLIC CAPSULE Take one(1) capsule daily. OTC NUTRITIONAL SUPPLEMENT red yeast rice 1200 mg daily Progress Notes: Moises Mckee OT/Mandeep 05/30/2019 3:20 PM Signed Episode [...] MEASURES WITH LEVEL OF FUNCTION: Hand Strength: Platinum Smith Position 2;Pinch Meter Hand Strength R Platinum Smith Position 2 (lbs): 82 lbs L Platinum Smith Position 2 (lbs): 55 lbs R Lateral [...] monitored throughout treatment. Billing: [place]red: Therapeutic Exercise (39108): 1:1 time:35 minutes (2 units: 23-37 mins) Fluidotherapy (59407) 1 unit(s) Total time: 45 minutes Moises Mckee OT/ELVA Normal [facility] PROGRESSon 05-30-2019 PROGRESS HNO ID: [id number] Author: Moises Mckee Service: ? Author Type: Occupational Therapist [...] MEASURES WITH LEVEL OF FUNCTION: Hand Strength: Platinum Smith Position 2;Pinch Meter Hand Strength R Platinum Smith Position 2 (lbs): 82 lbs L Platinum Smith Position 2 (lbs): 55 lbs R Lateral [...] monitored throughout treatment. Billing: Mildred: Therapeutic Exercise (92298): 1:1 time:35 minutes (2 units: 23-37 mins) Fluidotherapy (18213) 1 unit(s) Total time: 45 minutes Moises Mckee, OT/LCHT [facility] CNTHERAPYon 05-23-2019 CNTHERAPY OT/PT/Speech Visit ([facility]) BETTE CLEMENTS ([id number]) 1945 M Date Time Provider Department 05/23/19 1:45 PM MOISES MCKEE (OT) [facility] Date Time Provider Department Center 05/23/2019 1:45 PM [id number] MCKEE *[facility] Reason for Visit: Occupational Therapy [...] * Inhale 1 Puff as instructed e* JFHLEYLKEFK-EUJCQQQFZ-E IT C-M* Take 2 capsules by mouth once* PIROXICAM 10 MG CAPSULE Take 1 capsule by mouth once * NITROGLYCERIN 0.4 MG SUBLINGU* Dissolve 1 tablet under the t* Patient not taking: Reported on 05/09/2019 GARLIC CAPSULE Take one(1) capsule daily. 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 Billing: Levy: Therapeutic Exercise (76807): 1:1 time:30 minutes (2 units: 23-37 mins) Fluidotherapy (75444) 1 unit(s) Total time: 40 minutes JOSE Flower Annotated image of OT HAND THERAPUTTY EXERCISES PG 1 last updated by Moises Mckee on 05/23/2019 1:47 PM Annotated image of OT HAND THERAPUTTY EXERCISES PG 2 last updated by Moises Mckee on 05/23/2019 1:47 PM [facility] PROGRESSon 05-23-2019 PROGRESS HNO ID: [id number] Author: Moises Mckee Service: ? Author Type: Occupational Therapist [...] splint 4: scar massage 5: soft putty director of enterprise applications digit extension roll digit flexion and tripod [...] needs. Patient response monitored throughout treatment. Billing: [place]: Therapeutic Exercise (60578): 1:1 time:30 minutes (2 units: 23-37 mins) Fluidotherapy (49361) 1 unit(s) Total time: 40 minutes Moises Mckee OT/[facility] CNTHERAPYon 05-16-2019 CNTHERAPY OT/PT/Speech Visit ([facility]) BETTE CLEMENTS ([id number]) 1945 M Date Time Provider Department 05/16/19 1:45 PM MOISES MCKEE (OT) [facility] Date Time Provider Department Center 05/16/2019 1:45 PM [id number] [facility]CK[facility] for Visit: [facility]ational Therapy [...] * Inhale 1 Puff as instructed e* BTYRTHZNEPR-EDPAHGXHL-V IT C-M* Take 2 capsules by mouth once* PIROXICAM 10 MG CAPSULE Take 1 capsule by mouth once * NITROGLYCERIN 0.4 MG SUBLINGU* Dissolve 1 tablet under the t* Patient not taking: Reported on 05/09/2019 GARLIC CAPSULE Take one(1) capsule daily. 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 Patient response monitored throughout treatment. Billing: [place]: Therapeutic Exercise (05779): 1:1 time:30 minutes (2 units: 23-37 mins) Fluidotherapy (90557) 1 unit(s) Total time: 40 minutes Moises Mckee OT/ELVA Annotated image of MARGUERITE HAND WRIST STRENGTHENING last updated by Moises Mckee on 05/16/2019 2:11 PM Normal [facility] PROGRESSon 05-16-2019 PROGRESS HNO ID: [id number] Author: Moises Mckee Service: ? 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 Billing: Mildred: Therapeutic Exercise (82903): 1:1 time:30 minutes (2 units: 23-37 mins) Fluidotherapy (49976) 1 unit(s) Total time: 40 minutes Moises Mckee OT/[facility] CNTHERAPYon 05-09-2019 CNTHERAPY OT/PT/Speech Visit (OTC) BETTE CLEMENTS ([id number]) 1945 M Date Time Provider Department 05/09/19 1:45 PM MOISES MCKEE (OT) [facility] Date Time Provider Department Center 05/09/2019 1:45 PM [id number] MCKEE [facility] Reason for Visit: OT EVAL [748] Visit [...] * Inhale 1 Puff as instructed e* GQBIPOKHDSF-MIQGEEZVG-X IT C-M* Take 2 capsules by mouth once* PIROXICAM 10 MG CAPSULE Take 1 capsule by mouth once * NITROGLYCERIN 0.4 MG SUBLINGU* Dissolve 1 tablet under the t* Patient not taking: Reported on 05/09/2019 GARLIC CAPSULE Take one(1) capsule daily. OTC NUTRITIONAL SUPPLEMENT red yeast rice 1200 mg daily Progress Notes: Moises Mckee OT/Mandeep 05/09/2019 3:57 PM Signed Episode Visit Count: 1 Therapist That Will Oversee The Plan Of Care: Venu Swanson Start of Care Date: 04/07/19 Onset Date: 04/07/19 Plan of Care Certification Date: 05/09/19 Patient Identified by Name and Date of : Yes [facility] OCCUPATIONAL THERAPY EVALUATION [...] Planned Treatment Interventions: Custom orthosis fabrication;Therapeutic exercise;Manual therapy;Self-senior living management;ModalitiesFl uidotherapy PLAN FOR NEXT VISIT: trial [...] was provided in selection of appropriate interventions. Self-Custodial Management: 1: instructed in surgery and activity precautions 2: instructed in use of heat and or ice with precautions Skilled Intervention: Skilled judgment in the selection of proper modification for activity of daily living/home management based on clinical presentation, deficits, and needs. Billing: [place]: Evaluation - Moderate Complexity (15719) Self Care / Home Management (40030): 1:1 time:10 minutes (1 unit: 8-22 mins) Therapeutic Exercise (20455): 1:1 time:10 minutes (1 unit: 8-22 mins) Custom made forearm based thumb spica splint Total time: 55 minutes Moises Mckee OT/ELVA Annotated image of OT HAND POST-OP EX'S PG4-WRIST last updated by Moises Mckee on 05/09/2019 2:17 PM Annotated image of OT HAND TENDON GLIDING THUMB EX'S last updated by Moises Mckee on 05/09/2019 2:17 PM [facility] PROGRESSon 05-09-2019 PROGRESS HNO ID: [id number] Author: Moises Mckee Service: ? Author Type: Occupational Therapist Type: Progress Notes Filed: 05/09/2019 3:57 PM Note Text: Episode Visit Count: 1 Therapist That Will Oversee The Plan Of Care: Venu Swanson Start of Care Date: 04/07/19 Onset Date: 04/07/19 Plan of Care Certification Date: 05/09/19 Patient Identified by Name and Date of : Yes [facility] OCCUPATIONAL [...] Planned Treatment Interventions: Custom orthosis fabrication;Therapeutic exercise;Manual therapy;Self-senior living management;ModalitiesFl uidotherapy PLAN FOR NEXT VISIT: trial [...] was provided in selection of appropriate interventions. Self-Custodial Management: 1: instructed in surgery and activity precautions 2: instructed in use of heat and or ice with precautions Skilled Intervention: Skilled judgment in the selection of proper modification for activity of daily living/home management based on clinical presentation, deficits, and needs. Billing: [place]: Evaluation - Moderate Complexity (82419) Self Care / Home Management (04046): 1:1 time:10 minutes (1 unit: 8-22 mins) Therapeutic Exercise (62917): 1:1 time:10 minutes (1 unit: 8-22 mins) Custom made forearm based thumb spica splint Total time: 55 minutes Moises Mckee OT/[facility] PROGRESS HNO ID: [id number] Author: LISSETTE Morrison (Ct) Service: ? Author Type: Clinical Circus Roustabout Type: Progress Notes Filed: 05/09/2019 12:57 PM Note Text: NAME:Bette Clements DATE: May 09, 2019 CCF#: [id number] Upper Extremity X-Ray(s): Hand, left COMPLETED TECH ID SIGN: MAXWELL CULP [facility] XR HAND 3V PA/LAT/OBL LTon 0 05-09-2019 [...] Postsurgical change, as described. No acute process. Projects Manager: PSCB Transcribe Date/Time: May 09 2019 2:14P Dictated by : JIMMY GUTIERREZ MD This examination was interpreted and the report reviewed and electronically signed by: JIMYM GUTIERREZ MD on May 09 2019 2:15PM EST [id number] [facility] ANES Eliezer 04-07-2019 ANES POST HNO ID: [id number] Author: Rhys Velazquez MD Service: Anesthesiology Author Type: Anesthesiologist Type: Anesthesia PostOp Filed: 04/07/2019 10:35 AM Note Text: POST ANESTHESIA EVALUATION NOTE SERVICE DATE: 04/07/2019 SERVICE TIME: 103 : 1945 Vitals: 04/07/1924 04/07/19 0938 Temp: 36.3 ?C (97.3 ?F) [...] 07, 2019 TIME: 10:35 AM PAGER/CONTACT #: [facility] ANES PREOPon 04-07-2019 ANES PREOP HNO ID: [id number] Author: Rhys Velazquez MD Service: Anesthesiology Author [...] Laterality Date - COLONOSCOP W/ OR W/O [facility] SPEC clean anastamosis, some radiation changes - COLONOSCOP W/ OR W/O [facility] SPEC 08/14/09 Colonoscopy [facility] inpt - COLONOSCOPY W/BX 09/21/07 - EGD W/O [facility] SPECIMEN W/BX 09/21/07 - EXCISION NOSE [...] - Diabetes Father - Heart Paternal Grandfather MN'S - Diabetes Paternal Grandmother - Emphysema Maternal [...] instructed every 6 hours as needed. - Hvepmnykjzj-Mzsepmnax-F it C-Mn (GLUCOSAMINE CHONDROITIN MAXSTR) 500-400 mg [...] April 07, 2019 TIME: 6:57 AM CSN: [id number] [facility] NURSING PROGon 04-07-2019 NURSING PROG HNO ID: [id number] Author: Morena (Rn) TREVOR Henry Service: ? [...] 26.46 kg/m? .Pt tolerated procedure without difficulty. [facility] OPERATIVE NOon 04-07-2019 OPERATIVE NO HNO ID: [id number] Author: Barney Saldivar Service: Orthopaedic Surgery Author Type: Physician Type: Operative Report Filed: 04/07/2019 11:21 AM Note Text: OPERATIVE/PROCEDURE REPORT ? LOG ID: [id number] Surgery/Procedure Date: 04/07/2019 Incision/Procedure Start Time: 7:58 AM Incision Close/Procedure End Time: 9:32 AM Surgeon(s)/Proceduralis t(s) and Learning Developer(s): Surgeon(s) and Role: * Barney Saldivar - Primary Physician Learning Developer: Shirley Villarreal (Pa) ? Procedure(s): Left thumb, [...] with the Tevdek suture.? A number of fajycw-uz-utgyka from? the tendon were secured, and the [...] There were no residents or fellows available. assistant statistician was important and patient transport, positioning the patient and arm board and tourniquet application. Soft tissue retraction throughout the case and manual manipulation of the thumb. Assistance with drilling and suture management. Passing of the tendon graft, final skin closure and splint and bandage application. SIGNATURE: Barney Saldivar MD PATIENT NAME: Bette Clements DATE: April 07, 2019 TIME: 11:14 AM PAGER/CONTACT #: [facility] PT EDon 04-07-2019 PT ED HNO ID: [id number] Author: Mikie Correa) TREVOR Cary Service: Nursing [...] Signed By: Mikie Cary RN In Department: [facility] SURGERY [facility] PT ED HNO ID: [id number] Author: Mikie Correa) TREVOR Cary Service: Nursing [...] Signed By: Mikie Cary RN In Department: [facility]GERY [facility] XR FLUOROSCOPYon 04-07-2019 XR FLUOROSCOPY * * *Final Report* * * DATE OF EXAM: Apr 07 2019 9:30AM [facility] 5513 - XR FLUOROSCOPY / PROCEDURE [...] for further discussion. IMPRESSION: As discussed above Projects Manager: PSCB Transcribe Date/Time: Apr 07 2019 10:43A Dictated by : CHELE GASCA DO This examination was interpreted and the report reviewed and electronically signed by: CHELE GASCA DO on Apr 07 2019 10:44AM EST [id number] [facility] NURSING PROGon 03-06-2019 NURSING PROG HNO ID: [id number] Author: Jeri (Rn) TREVOR Pagan Service: ? [...] 5 days GERD Chart Check: COMPLETED Gisela Corneoj RN March 06, 2019 3:22 PM Addendum: [...] Pagan RN April 06, 2019 7:20 AM [facility] HOSPon 02-28-2019 HOSP Patient:Bette Clements MRN: Height:5' [...] mg tablet ipratropium-albuterol 20-100 mcg/Puff aero inhaler Idbrdxybfzj-Qaucycjqp-F it C-Mn (GLUCOSAMINE CHONDROITIN MAXSTR) 500-400 mg [...] Paxil [Paroxetine Hcl] Spiriva With Handihaler [Tiotropium [place]] tape [Other] Toprol Xl [Metoprolol] Zocor [Simvastatin] Zoloft [Sertraline Hcl] Date Verified: 04/07/19 Lab Values No results within the last 30 days for the following basenames: K,HCT Progress Notes (PRE ANES BAO): Alicia Luuqe APRN.VALDO 03/27/2019 3:13 PM Signed Pt seen again [...] Perez Ma 03/28/2019 9:26 AM Signed Alicia Uribe 7 minutes ago (9:14 AM) Can you notify pt he can continue his Feldene pre-operatively and stop the Plavix 5 days prior to surgery as directed. Routing comment Shirley (Flora) Phil Luque 16 hours ago (4:25 PM) Yes, he can stay on his Feldene. Thanks, Shirley Pt notified of instructions and verbalized understanding. Charla Perez Ma Progress Notes ([facility]): Ronna Chu RN 03/24/2019 10:40 AM Signed Pt. scheduled for OT at [place] post -op [facility] arthroplasty instead of [facility] , and appt. rescheduled fro 05-09-18 in [place]. Called pt. to notify him, and appointment reminders mailed to pt. Ronna Chu RN 03/24/2019 10:45 AM Signed [facility] notified that pt. no longer needs OT appt. [facility] PROGRESSon 02-28-2019 PROGRESS HNO ID: [id number] Author: Maxwell (Ct) LISSETTE Culp Service: ? Author Type: Clinical Circus Roustabout Type: Progress Notes Filed: 02/28/2019 1:16 PM Note Text: NAME:Bette Clements DATE: February 28, 2019 CCF#: [id number] Upper Extremity X-Ray(s): Hand, left COMPLETED TECH ID SIGN: MAXWELL CULP [facility] XR HAND 3V PA/LAT/OBL LTon 1 XR HAND 3V PA/LAT/OBL LT * * *Final Repo rt* * * DATE OF EXAM: Feb 28 2019 1:18PM ALEISHA 5345 - XR HAND 3V PA/LAT/OBL LT / PROCEDURE REASON: [id number] * * * * Physician Interpretation * [...] Osteoarthrosis. No evidence of an inflammatory arthropathy. Projects Manager: TENZIN Transcribe Date/Time: Feb 28 2019 3:56P Dictated by : FRANCES RIBEIRO MD This examination was interpreted and the report reviewed and electronically signed by: FRANCES RIBEIRO MD on Feb 28 2019 3:57PM EST [id number] [facility] Office Visit: [facility] 017 Documentation of current medications (procedure) Done Invalid Interpretation Code [facility] Work Phone: Fall risk assessment No Invalid Interpretation Code [facility] Work Phone: Tobacco smoking status OHIS Never Invalid Interpretation Code [facility] Work Phone: Tobacco use [facility] Former smoker Invalid Interpretation Code [facility] Work Phone: Office Visit: [facility] 08-28-2016 Documentation of current medications (procedure) Done Invalid Interpretation Code [facility] Work Phone: Tobacco smoking status NHIS Never Invalid Interpretation Code [facility] Work Phone: Tobacco use [facility] Former smoker Invalid Interpretation Code [facility] Work Phone: Append: Pulmonary Rehab refe rralon 04-10-2016 Clinical consultation report (record artifact) [id number] Invalid Interpretation Code [facility] Work Phone: Office Visit: [facility] 016 Smoking cessation education (procedure) yes Invalid Interpretation Code [facility] Work Phone: Microbiology: Culture, Sputu mon 08-07-2015 Bacteria sputum culture . Invalid Interpretation Code [facility] Work Phone: Vital Signs Date Time Vital Sign Value Performing Clinician Facility 01-08-2025 15:38-0400 Body height 170.18 cm Jeremiah Mckeon MEDICATION CARE MANAGER-C Work Phone: [facility] 01-08-2025 15:38-0400 Body mass index (BMI) [Ratio] 21.2 kg/m2 Jeremiah Mckeon MEDICATION CARE MANAGER-C Work Phone: [facility] 01-08-2025 15:38-0400 Body temperature 97.7 [degF] Jeremiah Mckeon MEDICATION CARE MANAGER-C Work Phone: [facility] 01-08-2025 15:38-0400 Body weight 61.68 kg Jeremiah Mckeon MEDICATION CARE MANAGER-C Work Phone: [facility] 01-08-2025 15:38-0400 Diastolic blood pressure 70 mm[Hg] Jeremiah Mckeon MEDICATION CARE MANAGER-C Work Phone: 4(676)[phone] [place] [address] 01-08-2025 15:38-0400 Heart rate 99 /min Jeremiah Mckeon MEDICATION CARE MANAGER-C Work Phone: 8(477)[phone] [place] [address] 01-08-2025 15:38-0400 SaO2% (BldA) [Mass fraction] 98 % Jeremiah Mckeon MEDICATION CARE MANAGER-C Work Phone: 1(003)391-651424 [place] [address] 01-08-2025 15:38-0400 Systolic blood pressure 152 mm[Hg] Jeremiah Mckeon MEDICATION CARE MANAGER-C Work Phone: 4(790)004-518724 [place] [address] 01-07-2025 10:05-0400 Body temperature 97 [degF] Jeremiah Mckeon MEDICATION CARE MANAGER-C Work Phone: 5(735)[phone] [place] [address] 01-07-2025 10:05-0400 Diastolic blood pressure 79 mm[Hg] Jeremiah Mckeon MEDICATION CARE MANAGER-C Work Phone: 0(199)[phone] [place] [address] 01-07-2025 10:05-0400 Heart rate 73 /min Jeremiah Mckeon MEDICATION CARE MANAGER-C Work Phone: 1(964)392-251624 [place] [address] 01-07-2025 10:05-0400 Respiratory rate 16 /min Jeremiah Mckeon MEDICATION CARE MANAGER-C Work Phone: 2(186)244-153224 [place] [address] 01-07-2025 10:05-0400 SaO2% (BldA) [Mass fraction] 99 % Jeremiah Mckeon MEDICATION CARE MANAGER-C Work Phone: 9(516)102-931224 [place] [address] 01-07-2025 10:05-0400 Systolic blood pressure 150 mm[Hg] Jeremiah Mckeon MEDICATION CARE MANAGER-C Work Phone: 1(282)271-755224 [place] [address] 01-07-2025 09:34-0400 Body height 170.18 cm Jeremiah Mckeon MEDICATION CARE MANAGER-C Work Phone: 3(241)626-802924 [place] [address] 01-07-2025 09:34-0400 Body mass index (BMI) [Ratio] 20.1 kg/m2 Jeremiah Mckeon MEDICATION CARE MANAGER-C Work Phone: 2(510)122-909224 [place] [address] 01-07-2025 09:34-0400 Body weight 58.4 kg Jeremiah Mckeon MEDICATION CARE MANAGER-C Work Phone: 6(004)504-88[address] [place] [address] 01-06-2025 16:09-0400 Body height 170.18 cm Jeremiah Mckeon MEDICATION CARE MANAGER-C Work Phone: 9(271)406-209057 [place] [address] 01-06-2025 16:09-0400 Body mass index (BMI) [Ratio] 21.2 kg/m2 Jeremiah Mckeon MEDICATION CARE MANAGER-C Work Phone: 5(768)492-348924 [place] [address] 01-06-2025 16:09-0400 Body temperature 97.1 [degF] Jeremiah Mckeon MEDICATION CARE MANAGER-C Work Phone: 3(328)729-333924 [place] [address] 01-06-2025 16:09-0400 Body weight 61.55 kg Jeremiah Mckeon MEDICATION CARE MANAGER-C Work Phone: 7(720)212-465524 [place] [address] 01-06-2025 16:09-0400 Diastolic blood pressure 85 mm[Hg] Jeremiah Mckeon MEDICATION CARE MANAGER-C Work Phone: 6(780)551-351424 [place] [address] 01-06-2025 16:09-0400 Heart rate 106 /min Jeremiah Mckeon MEDICATION CARE MANAGER-C Work Phone: 3(152)438-420424 [place] [address] 01-06-2025 16:09-0400 Respiratory rate 18 /min Jeremiah Mckeon MEDICATION CARE MANAGER-C Work Phone: 9(725)704-358024 [place] [address] 01-06-2025 16:09-0400 SaO2% (BldA) [Mass fraction] 98 % Jeremiah Mckeon MEDICATION CARE MANAGER-C Work Phone: [phone])734-415724 [place] [address] 01-06-2025 16:09-0400 Systolic blood pressure 154 mm[Hg] Jeremiah Mckeon MEDICATION CARE MANAGER-C Work Phone: 5(184)817-097224 [place] [address] 09-27-2024 08:28-0400 Body mass index (BMI) [Ratio] 20.7 kg/m2 Tiffanie Carr MEDICATION CARE MANAGER-C Work Phone: [facility] 09-27-2024 08:28-0400 Body temperature 96.7 [degF] Tiffanie Carr MEDICATION CARE MANAGER-C Work Phone: [facility] 09-27-2024 08:28-0400 Body weight 59.87 kg Tiffanie Carr MEDICATION CARE MANAGER-C Work Phone: [facility] 09-27-2024 08:28-0400 Diastolic blood pressure 88 mm[Hg] Tiffanie Carr MEDICATION CARE MANAGER-C Work Phone: [facility] 09-27-2024 08:28-0400 Heart rate 83 /min Tiffanie Suareznancy MEDICATION CARE MANAGER-C Work Phone: [facility] 09-27-2024 08:28-0400 Respiratory rate 18 /min Tiffanie Quinnakira MEDICATION CARE MANAGER-C Work Phone: [facility] 09-27-2024 08:28-0400 SaO2% (BldA) [Mass fraction] 97 % Tiffanie Quinnakira MEDICATION CARE MANAGER-C Work Phone: [facility] 09-27-2024 08:28-0400 Systolic blood pressure 142 mm[Hg] Tiffanie Quinnakira MEDICATION CARE MANAGER-C Work Phone: [facility] 08-11-2024 08:50-0400 Body temperature 97.8 [degF] Dr. Spenser Sanchez MD Work Phone: [facility] 08-11-2024 08:50-0400 Diastolic blood pressure 73 mm[Hg] Dr. Spenser Sanchez MD Work Phone: [facility] 08-11-2024 08:50-0400 Heart rate 94 /min Dr. Spenser Sanchez MD Work Phone: [facility] 08-11-2024 08:50-0400 Respiratory rate 18 /min Dr. Spenser Sanchez MD Work Phone: [facility] 08-11-2024 08:50-0400 SaO2% (BldA) [Mass fraction] 97 % Dr. Spenser Sanchez MD Work Phone: [facility] 08-11-2024 08:50-0400 Systolic blood pressure 139 mm[Hg] Dr. Spenser Sanchez MD Work Phone: [facility] 08-11-2024 03:09-0400 Inhaled oxygen flow rate 3 L/min Dr. Spenser Sanchez MD Work Phone: [facility] 08-10-2024 13:17-0400 Body height 170.[address] Spenser Sanchez MD Work Phone: [facility] 08-10-2024 13:17-0400 Body weight 60.[address] Spenser Sanchez MD Work Phone: [facility] 08-09-2024 19:50-0400 Body mass index (BMI) [Ratio] 21 kg/m2 Dr. Spenser Sanchez MD Work Phone: [facility] 08-09-2024 18:09-0400 Body temperature 98 [degF] Dr. Spenser Sanchez MD Work Phone: [facility] 08-09-2024 18:09-0400 Diastolic blood pressure 90 mm[Hg] Dr. Spenser Sanchez MD Work Phone: [facility] 08-09-2024 18:09-0400 Heart rate 68 /min Dr. Spenser Sanchez MD Work Phone: [facility] 08-09-2024 18:09-0400 Respiratory rate 14 /min Dr. Spenser Sanchez MD Work Phone: [facility] 08-09-2024 18:09-0400 SaO2% (BldA) [Mass fraction] 96 % Dr. Spenser Sanchez MD Work Phone: [facility] 08-09-2024 18:09-0400 Systolic blood pressure 174 mm[Hg] Dr. Spenser Sanchez MD Work Phone: [facility] 08-09-2024 16:28-0400 Body height 170.[address] Spenser Sanchez MD Work Phone: [facility] 08-09-2024 16:28-0400 Body mass index (BMI) [Ratio] 20.4 kg/m2 Dr. Spenser Sanchez MD Work Phone: [facility] [facility] 08-09-2024 16:28-0400 Body weight 59.[address] Spenser Sanchez MD Work Phone: [facility] 08-02-2024 10:13-0400 Body mass index (BMI) [Ratio] 21.7 kg/m2 Dr. Spenser Sanchez MD Work Phone: [facility] 08-02-2024 10:13-0400 Body weight 62.[address] Spenser Sanchez MD Work Phone: [facility] 08-02-2024 10:13-0400 Diastolic blood pressure 80 mm[Hg] Dr. Spenser Sanchez MD Work Phone: [facility] 08-02-2024 10:13-0400 Heart rate 86 /min Dr. Spenser Sanchez MD Work Phone: [facility] 08-02-2024 10:13-0400 Respiratory rate 20 /min Dr. Spenser Sanchez MD Work Phone: [facility] 08-02-2024 10:13-0400 SaO2% (BldA) [Mass fraction] 95 % Dr. Spenser Sanchez MD Work Phone: [facility] 08-02-2024 10:13-0400 Systolic blood pressure 144 mm[Hg] Dr. Spenser Sanchez MD Work Phone: [facility] 07-28-2024 14:51-0400 Body temperature 98.2 [degF] Dr. Spenser Sanchez MD Work Phone: [facility] 07-28-2024 14:51-0400 Diastolic blood pressure 90 mm[Hg] Dr. Spenser Sanchez MD Work Phone: [facility] 07-28-2024 14:51-0400 Heart rate 102 /min Dr. Spenser Sanchez MD Work Phone: [facility] 07-28-2024 14:51-0400 Respiratory rate 16 /min Dr. Spenser Sanchez MD Work Phone: [facility] 07-28-2024 14:51-0400 SaO2% (BldA) [Mass fraction] 93 % Dr. Spenser Sanchez MD Work Phone: [facility] 07-28-2024 14:51-0400 Systolic blood pressure 151 mm[Hg] Dr. Spenser Sanchez MD Work Phone: [facility] 07-28-2024 12:13-0400 Body height 170.[address] Spenser Sanchez MD Work Phone: [facility] 07-28-2024 12:13-0400 Body weight 60.[address] Spenser Sanchez MD Work Phone: [facility] 07-28-2024 06:00-0400 Body mass index (BMI) [Ratio] 20.8 kg/m2 Dr. Spenser Sanchez MD Work Phone: [facility] 07-28-2024 04:14-0400 Inhaled oxygen flow rate 3 L/min Dr. Spenser Sanchez MD Work Phone: [facility] 07-27-2024 15:43-0400 Body temperature 97.3 [degF] Dr. Spenser Sanchez MD Work Phone: [facility] 07-27-2024 15:43-0400 Diastolic blood pressure 78 mm[Hg] Dr. Spenser Sanchez MD Work Phone: [facility] 07-27-2024 15:43-0400 Heart rate 78 /min Dr. Spenser Sanchez MD Work Phone: [facility] 07-27-2024 15:43-0400 Respiratory rate 16 /min Dr. Spenser Sanchez MD Work Phone: [facility] 07-27-2024 15:43-0400 SaO2% (BldA) [Mass fraction] 98 % Dr. Spenser Sanchez MD Work Phone: [facility] 07-27-2024 15:43-0400 Systolic blood pressure 146 mm[Hg] Dr. Spenser Sanchez MD Work Phone: [facility] 07-27-2024 09:43-0400 Body height 170.[address] Spenser Sanchez MD Work Phone: [facility] 07-27-2024 09:43-0400 Body mass index (BMI) [Ratio] 22.5 kg/m2 Dr. Spenser Sanchez MD Work Phone: [facility] 07-27-2024 09:43-0400 Body weight 65.[address] Spenser Sanchez MD Work Phone: [facility] 07-18-2024 15:30-0400 Body temperature 99 [degF] Dr. Spenser Sanchez MD Work Phone: [facility] 07-18-2024 15:30-0400 Diastolic blood pressure 80 mm[Hg] Dr. Spenser Sanchez MD Work Phone: [facility] 07-18-2024 15:30-0400 Heart rate 68 /min Dr. Spenser Sanchez MD Work Phone: [facility] 07-18-2024 15:30-0400 Respiratory rate 18 /min Dr. Spenser Sanchez MD Work Phone: [facility] 07-18-2024 15:30-0400 SaO2% (BldA) [Mass fraction] 95 % Dr. Spenser Sanchez MD Work Phone: [facility] 07-18-2024 15:30-0400 Systolic blood pressure 157 mm[Hg] Dr. Spenser Sanchez MD Work Phone: [facility] 07-18-2024 12:38-0400 Inhaled oxygen flow rate 3 L/min Dr. Spenser Sanchez MD Work Phone: [facility] 07-18-2024 12:21-0400 Body height 170.[address] Spenser Sanchez MD Work Phone: [facility] 07-18-2024 12:21-0400 Body mass index (BMI) [Ratio] 21.1 kg/m2 Dr. Spenser Sanchez MD Work Phone: [facility] 07-18-2024 12:21-0400 Body weight 61.[address] Spenser Sanchez MD Work Phone: [facility] 06-14-2024 08:22-0500 Body mass index (BMI) [Ratio] 22.2 kg/m2 Dr. Spenser Sanchez MD Work Phone: [facility] 06-14-2024 08:22-0500 Body temperature 96.1 [degF] Dr. Spenser Sanchez MD Work Phone: [facility] 06-14-2024 08:22-0500 Body weight 64.[address] Spenser Sanchez MD Work Phone: [facility] 06-14-2024 08:22-0500 Diastolic blood pressure 80 mm[Hg] Dr. Spenser Sanchez MD Work Phone: [facility] 06-14-2024 08:22-0500 Heart rate 84 /min Dr. Spenser Sanchez MD Work Phone: [facility] 06-14-2024 08:22-0500 Respiratory rate 18 /min Dr. Spenser Sanchez MD Work Phone: [facility] 06-14-2024 08:22-0500 SaO2% (BldA) [Mass fraction] 97 % Dr. Spenser Sanchez MD Work Phone: [facility] 06-14-2024 08:22-0500 Systolic blood pressure 149 mm[Hg] Dr. Spenser Sanchez MD Work Phone: [facility] 05-11-2024 11:17-0500 Body temperature 97.7 [degF] Dr. Spenser Sanchez MD Work Phone: [facility] 05-11-2024 11:17-0500 Body weight 65.[address] Spenser Sanchez MD Work Phone: [facility] 05-11-2024 11:17-0500 Diastolic blood pressure 92 mm[Hg] Dr. Spenser Sanchez MD Work Phone: [facility] 05-11-2024 11:17-0500 Heart rate 103 /min Dr. Spenser Sanchez MD Work Phone: [facility] 05-11-2024 11:17-0500 Respiratory rate 16 /min Dr. Spenser Sanchez MD Work Phone: [facility] 05-11-2024 11:17-0500 SaO2% (BldA) [Mass fraction] 92 % Dr. Spenser Sanchez MD Work Phone: [facility] 05-11-2024 11:17-0500 Systolic blood pressure 152 mm[Hg] Dr. Spenser Sanchez MD Work Phone: [facility] 04-30-2024 11:43-0500 Diastolic blood pressure 109 mm[Hg] Dr. Spenser Sanchez MD Work Phone: [facility] 04-30-2024 11:43-0500 Heart rate 84 /min Dr. Spenser Sanchez MD Work Phone: [facility] 04-30-2024 11:43-0500 Respiratory rate 16 /min Dr. Spenser Sanchez MD Work Phone: [facility] 04-30-2024 11:43-0500 SaO2% (BldA) [Mass fraction] 95 % Dr. Spenser Sanchez MD Work Phone: [facility] 04-30-2024 11:43-0500 Systolic blood pressure 159 mm[Hg] Dr. Spenser Sanchez MD Work Phone: [facility] 04-30-2024 10:07-0500 Body mass index (BMI) [Ratio] 22.1 kg/m2 Dr. Spenser Sanchez MD Work Phone: [facility] 04-30-2024 10:07-0500 Body temperature 98.1 [degF] Dr. Spenser Sanchez MD Work Phone: [facility] 04-30-2024 10:07-0500 Body weight 64.[address] Spenser Sanchez MD Work Phone: [facility] 04-21-2024 09:28-0500 Heart rate 114 /min Dr. Spenser Sanchez MD Work Phone: [facility] 04-21-2024 09:28-0500 SaO2% (BldA) [Mass fraction] 95 % Dr. Spenser Sanchez MD Work Phone: [facility] 04-21-2024 09:22-0500 Body temperature 95.1 [degF] Dr. Spenser Sanchez MD Work Phone: [facility] 04-21-2024 09:22-0500 Body weight 62.[address] Spenser Sanchez MD Work Phone: [facility] 04-21-2024 09:22-0500 Diastolic blood pressure 80 mm[Hg] Dr. Spenser Sanchez MD Work Phone: [facility] 04-21-2024 09:22-0500 Respiratory rate 20 /min Dr. Spenser Sanchez MD Work Phone: [facility] 04-21-2024 09:22-0500 Systolic blood pressure 172 mm[Hg] Dr. Spenser Sanchez MD Work Phone: [facility] 04-19-2024 12:57-0500 Body mass index (BMI) [Ratio] 21.9 kg/m2 Dr. Spenser Sanchez MD Work Phone: [facility] 04-19-2024 12:57-0500 Body temperature 97.9 [degF] Dr. Spenser Sanchez MD Work Phone: [facility] 04-19-2024 12:57-0500 Body weight 63.[address] Spenser Sanchez MD Work Phone: [facility] 04-19-2024 12:57-0500 Diastolic blood pressure 80 mm[Hg] Dr. Spenser Sanchez MD Work Phone: [facility] 04-19-2024 12:57-0500 Heart rate 100 /min Dr. Spenser Sanchez MD Work Phone: [facility] 04-19-2024 12:57-0500 Respiratory rate 16 /min Dr. Spenser Sanchez MD Work Phone: [facility] 04-19-2024 12:57-0500 SaO2% (BldA) [Mass fraction] 95 % Dr. Spenser Sanchez MD Work Phone: [facility] 04-19-2024 12:57-0500 Systolic blood pressure 138 mm[Hg] Dr. Spenser Sanchez MD Work Phone: [facility] 04-11-2024 17:00-0500 Body temperature 97.8 [degF] Dr. Spenser Sanchez MD Work Phone: [facility] 04-11-2024 17:00-0500 Diastolic blood pressure 62 mm[Hg] Dr. Spenser Sanchez MD Work Phone: [facility] 04-11-2024 17:00-0500 Heart rate 72 /min Dr. Spenser Sanchez MD Work Phone: [facility] 04-11-2024 17:00-0500 Respiratory rate 15 /min Dr. Spenser Sanchez MD Work Phone: [facility] 04-11-2024 17:00-0500 SaO2% (BldA) [Mass fraction] 98 % Dr. Spenser Sanchez MD Work Phone: [facility] 04-11-2024 17:00-0500 Systolic blood pressure 145 mm[Hg] Dr. Spenser Sanchez MD Work Phone: [facility] 04-11-2024 13:28-0500 Body mass index (BMI) [Ratio] 21.7 kg/m2 Dr. Spenser Sanchez MD Work Phone: [facility] 04-11-2024 13:28-0500 Body weight 62.[address] Spenser Sanchez MD Work Phone: [facility] 03-21-2024 13:40-0500 Body temperature 98.6 [degF] Dr. Spenser Sanchez MD Work Phone: [facility] 03-21-2024 13:40-0500 Body weight 62.[address] Spenser Sanchez MD Work Phone: [facility] 03-21-2024 13:40-0500 Diastolic blood pressure 74 mm[Hg] Dr. Spenser Sanchez MD Work Phone: [facility] 03-21-2024 13:40-0500 Heart rate 98 /min Dr. Spenser Sanchez MD Work Phone: [facility] 03-21-2024 13:40-0500 Respiratory rate 18 /min Dr. Spenesr Sanchez MD Work Phone: [facility] 03-21-2024 13:40-0500 SaO2% (BldA) [Mass fraction] 95 % Dr. Spenser Sanchez MD Work Phone: [facility] 03-21-2024 13:40-0500 Systolic blood pressure 132 mm[Hg] Dr. Spenser Sanchez MD Work Phone: [facility] 08-03-2023 13:57-0400 Body height 170.[address] Spenser Sanchez Work Phone: [facility] 08-03-2023 13:57-0400 Body mass index (BMI) [Ratio] 23 kg/m2 Dr. Spenser Sanchez Work Phone: [facility] 08-03-2023 13:57-0400 Body weight 66.[address] Spenser Sanchez Work Phone: [facility] 08-03-2023 13:57-0400 Diastolic blood pressure 69 mm[Hg] Dr. Spenser Sanchez Work Phone: [facility] 08-03-2023 13:57-0400 Heart rate 93 /min Dr. Spenser Sanchez Work Phone: [facility] 08-03-2023 13:57-0400 Respiratory rate 18 /min Dr. Spenser Sanchez Work Phone: [facility] 08-03-2023 13:57-0400 SaO2% (BldA) [Mass fraction] 94 % Dr. Spenser Sanchez Work Phone: [facility] 08-03-2023 13:57-0400 Systolic blood pressure 106 mm[Hg] Dr. Spenser Sanchez Work Phone: [facility] 05-12-2023 08:17-0500 Body height 170.[address] Spenser Sanchez Work Phone: [facility] 05-12-2023 08:17-0500 Body mass index (BMI) [Ratio] 22.7 kg/m2 Dr. Spenser Sanchez Work Phone: [facility] 05-12-2023 08:17-0500 Body temperature 94.2 [degF] Dr. Spenser Sanchez Work Phone: [facility] 05-12-2023 08:17-0500 Body weight 65.[address] Spenser Sanchez Work Phone: [facility] 05-12-2023 08:17-0500 Diastolic blood pressure 78 mm[Hg] Dr. Spenser Sanchez Work Phone: [facility] 05-12-2023 08:17-0500 Heart rate 86 /min Dr. Spenser Sanchez Work Phone: [facility] 05-12-2023 08:17-0500 Respiratory rate 18 /min Dr. Spenser Sanchez Work Phone: [facility] 05-12-2023 08:17-0500 SaO2% (BldA) [Mass fraction] 96 % Dr. Spenser Sanchez Work Phone: [facility] 05-12-2023 08:17-0500 Systolic blood pressure 137 mm[Hg] Dr. Spenser Sanchez Work Phone: [facility] 05-10-2023 09:35-0500 Body height 170.[address] Spenser Sanchez Work Phone: [facility] 05-10-2023 09:35-0500 Body mass index (BMI) [Ratio] 23.4 kg/m2 Dr. Spenser Sanchez Work Phone: [facility] 05-10-2023 09:35-0500 Body temperature 96 [degF] Dr. Spenser Sanchez Work Phone: [facility] 05-10-2023 09:35-0500 Body weight 67.[address] Spenser Sanchez Work Phone: [facility] 05-10-2023 09:35-0500 Diastolic blood pressure 75 mm[Hg] Dr. Spenser Sanchez Work Phone: [facility] 05-10-2023 09:35-0500 Heart rate 87 /min Dr. Spenser Sanchez Work Phone: [facility] 05-10-2023 09:35-0500 Respiratory rate 20 /min Dr. Spenser Sanchez Work Phone: [facility] 05-10-2023 09:35-0500 SaO2% (BldA) [Mass fraction] 91 % Dr. Spenser Sanchez Work Phone: [facility] 05-10-2023 09:35-0500 Systolic blood pressure 149 mm[Hg] Dr. Spenser Sanchez Work Phone: [facility] 04-19-2023 13:04-0500 Body height 170.[address] Spenser Sanchez Work Phone: [facility] 04-19-2023 13:04-0500 Body mass index (BMI) [Ratio] 22.8 kg/m2 Dr. Spenser Sanchez Work Phone: [facility] 04-19-2023 13:04-0500 Body temperature 97.9 [degF] Dr. Spenser Sanchez Work Phone: [facility] 04-19-2023 13:04-0500 Body weight 66.[address] Spenser Sanchez Work Phone: [facility] 04-19-2023 13:04-0500 Diastolic blood pressure 70 mm[Hg] Dr. Spenser Sanchez Work Phone: [facility] 04-19-2023 13:04-0500 Heart rate 86 /min Dr. Spenser Sanchez Work Phone: [facility] 04-19-2023 13:04-0500 Respiratory rate 14 /min Dr. Spenser Sanchez Work Phone: [facility] 04-19-2023 13:04-0500 SaO2% (BldA) [Mass fraction] 96 % Dr. Spenser Sanchez Work Phone: [facility] 04-19-2023 13:04-0500 Systolic blood pressure 120 mm[Hg] Dr. Spenser Sanchez Work Phone: [facility] 04-13-2023 13:33-0500 Body mass index (BMI) [Ratio] 23.3 kg/m2 Dr. Spenser Sanchez Work Phone: [facility] 04-13-2023 13:33-0500 Body temperature 97.2 [degF] Dr. Spenser Sanchez Work Phone: [facility] 04-13-2023 13:33-0500 Body weight 67.[address] Spenser Sanchez Work Phone: [facility] 04-13-2023 13:33-0500 Diastolic blood pressure 78 mm[Hg] Dr. Spenser Sanchez Work Phone: [facility] 04-13-2023 13:33-0500 Heart rate 81 /min Dr. Spenser Sanchez Work Phone: [facility] 04-13-2023 13:33-0500 Respiratory rate 16 /min Dr. Spenser Sanchez Work Phone: [facility] 04-13-2023 13:33-0500 SaO2% (BldA) [Mass fraction] 93 % Dr. Spenser Sanchez Work Phone: [facility] 04-13-2023 13:33-0500 Systolic blood pressure 144 mm[Hg] Dr. Spenser Sanchez Work Phone: [facility] 03-16-2023 14:54-0500 Body mass index (BMI) [Ratio] 23 kg/m2 Dr. Spenser Sanchez Work Phone: [facility] 03-16-2023 14:54-0500 Body temperature 97 [degF] Dr. Spenser Sanchez Work Phone: [facility] 03-16-2023 14:54-0500 Body weight 66.[address] Spenser Sanchez Work Phone: [facility] 03-16-2023 14:54-0500 Diastolic blood pressure 73 mm[Hg] Dr. Spenser Sanchez Work Phone: [facility] 03-16-2023 14:54-0500 Heart rate 77 /min Dr. Spenser Sanchez Work Phone: [facility] 03-16-2023 14:54-0500 Respiratory rate 16 /min Dr. Spenser Sanchez Work Phone: [facility] 03-16-2023 14:54-0500 SaO2% (BldA) [Mass fraction] 93 % Dr. Spenser Sanchez Work Phone: [facility] 03-16-2023 14:54-0500 Systolic blood pressure 169 mm[Hg] Dr. Spenser Sanchez Work Phone: [facility] 03-09-2023 14:54-0500 Body mass index (BMI) [Ratio] 23.2 kg/m2 Dr. Spenser Sanchez Work Phone: [facility] 03-09-2023 14:54-0500 Body temperature 97.2 [degF] Dr. Spenser Sanchez Work Phone: [facility] 03-09-2023 14:54-0500 Body weight 67.[address] Spenser Sanchez Work Phone: [facility] 03-09-2023 14:54-0500 Diastolic blood pressure 82 mm[Hg] Dr. Spenser Sanchez Work Phone: [facility] 03-09-2023 14:54-0500 Heart rate 73 /min Dr. Spenser Sanchez Work Phone: [facility] 03-09-2023 14:54-0500 Respiratory rate 16 /min Dr. Spenser Sanchez Work Phone: [facility] 03-09-2023 14:54-0500 SaO2% (BldA) [Mass fraction] 95 % Dr. Spenser Sanchez Work Phone: [facility] 03-09-2023 14:54-0500 Systolic blood pressure 139 mm[Hg] Dr. Spenser Sanchez Work Phone: [facility] 03-02-2023 14:57-0400 Body mass index (BMI) [Ratio] 23.2 kg/m2 Dr. Spenser Sanchez Work Phone: [facility] 03-02-2023 14:57-0400 Body temperature 97.4 [degF] Dr. Spenser Sanchez Work Phone: [facility] 03-02-2023 14:57-0400 Body weight 67.[address] Spenser Sanchez Work Phone: [facility] 03-02-2023 14:57-0400 Diastolic blood pressure 79 mm[Hg] Dr. Spenser Sanchez Work Phone: [facility] 03-02-2023 14:57-0400 Heart rate 88 /min Dr. Spenser Sanchez Work Phone: [facility] 03-02-2023 14:57-0400 Respiratory rate 18 /min Dr. Spenser Sanchez Work Phone: [facility] 03-02-2023 14:57-0400 SaO2% (BldA) [Mass fraction] 95 % Dr. Spenser Sanchez Work Phone: [facility] 03-02-2023 14:57-0400 Systolic blood pressure 172 mm[Hg] Dr. Spenser Sanchez Work Phone: [facility] 02-23-2023 14:56-0400 Body mass index (BMI) [Ratio] 22.7 kg/m2 Dr. Spenser Sanchez Work Phone: [facility] 02-23-2023 14:56-0400 Body temperature 97.2 [degF] Dr. Spenser Sanchez Work Phone: [facility] 02-23-2023 14:56-0400 Body weight 65.[address] Spenser Sanchez Work Phone: [facility] 02-23-2023 14:56-0400 Diastolic blood pressure 83 mm[Hg] Dr. Spenser Sanchez Work Phone: [facility] 02-23-2023 14:56-0400 Heart rate 72 /min Dr. Spenser Sanchez Work Phone: [facility] 02-23-2023 14:56-0400 Respiratory rate 16 /min Dr. Spenser Sanchez Work Phone: [facility] 02-23-2023 14:56-0400 SaO2% (BldA) [Mass fraction] 94 % Dr. Spenser Sanchez Work Phone: [facility] 02-23-2023 14:56-0400 Systolic blood pressure 171 mm[Hg] Dr. Spenser Sanchez Work Phone: [facility] 02-16-2023 12:08-0400 Body height 170.[address] Spenser Sanchez Work Phone: [facility] 02-16-2023 12:08-0400 Body mass index (BMI) [Ratio] 22.7 kg/m2 Dr. Spenser Sanchez Work Phone: [facility] 02-16-2023 12:08-0400 Body temperature 97.8 [degF] Dr. Spenser Sanchez Work Phone: [facility] 02-16-2023 12:08-0400 Body weight 65.[address] Spenser Sanchez Work Phone: [facility] 02-16-2023 12:08-0400 Diastolic blood pressure 71 mm[Hg] Dr. Spenser Sanchez Work Phone: [facility] 02-16-2023 12:08-0400 Heart rate 95 /min Dr. Spenser Sanchez Work Phone: [facility] 02-16-2023 12:08-0400 Respiratory rate 20 /min Dr. Spenser Sanchez Work Phone: [facility] 02-16-2023 12:08-0400 SaO2% (BldA) [Mass fraction] 91 % Dr. Spenser Sanchez Work Phone: [facility] 02-16-2023 12:08-0400 Systolic blood pressure 147 mm[Hg] Dr. Spenser Sanchez Work Phone: [facility] 01-12-2023 14:24-0400 Body mass index (BMI) [Ratio] 23.1 kg/m2 Dr. Spenser Sanchez Work Phone: [facility] 01-12-2023 14:24-0400 Body weight 67.[address] Spenser Sanchez Work Phone: [facility] 01-12-2023 14:24-0400 Diastolic blood pressure 73 mm[Hg] Dr. Spenser Sanchez Work Phone: [facility] 01-12-2023 14:24-0400 Heart rate 83 /min Dr. Spenser Sanchez Work Phone: [facility] 01-12-2023 14:24-0400 Respiratory rate 20 /min Dr. Spenser Sanchez Work Phone: [facility] 01-12-2023 14:24-0400 Systolic blood pressure 139 mm[Hg] Dr. Spenser Sanchez Work Phone: [facility] 12-22-2022 13:33-0400 Body mass index (BMI) [Ratio] 22.8 kg/m2 Dr. Spenser Sanchez Work Phone: [facility] 12-22-2022 13:33-0400 Body temperature 97 [degF] Dr. Spenser Sanchez Work Phone: [facility] 12-22-2022 13:33-0400 Body weight 66.[address] Spenser Sanchez Work Phone: [facility] 12-22-2022 13:33-0400 Diastolic blood pressure 78 mm[Hg] Dr. Spenser Sanchez Work Phone: [facility] 12-22-2022 13:33-0400 Heart rate 90 /min Dr. Spenser Sanchez Work Phone: [facility] 12-22-2022 13:33-0400 Respiratory rate 18 /min Dr. Spenser Sanchez Work Phone: [facility] 12-22-2022 13:33-0400 SaO2% (BldA) [Mass fraction] 93 % Dr. Spenser Sanchez Work Phone: [facility] 12-22-2022 13:33-0400 Systolic blood pressure 143 mm[Hg] Dr. Spenser Sanchez Work Phone: [facility] 12-18-2022 08:29-0400 Body height 170.[address] Spenser Sanchez Work Phone: [facility] 12-18-2022 08:29-0400 Body mass index (BMI) [Ratio] 23 kg/m2 Dr. Spenser Sanchez Work Phone: [facility] 12-18-2022 08:29-0400 Body weight 66.[address] Spenser Sanchez Work Phone: [facility] 12-18-2022 08:29-0400 Diastolic blood pressure 78 mm[Hg] Dr. Spenser Sanchez Work Phone: [facility] 12-18-2022 08:29-0400 Heart rate 86 /min Dr. Spenser Sanchez Work Phone: [facility] 12-18-2022 08:29-0400 Respiratory rate 18 /min Dr. Spenser Sanchez Work Phone: [facility] 12-18-2022 08:29-0400 SaO2% (BldA) [Mass fraction] 96 % Dr. Spenser Sanchez Work Phone: [facility] 12-18-2022 08:29-0400 Systolic blood pressure 138 mm[Hg] Dr. Spenser Sanchez Work Phone: [facility] 12-07-2022 14:23-0400 Body mass index (BMI) [Ratio] 22.7 kg/m2 Dr. Spenser Sanchez Work Phone: [facility] 12-07-2022 14:23-0400 Body temperature 97 [degF] Dr. Spenser Sanchez Work Phone: [facility] 12-07-2022 14:23-0400 Body weight 65.[address] Spenser Sanchez Work Phone: [facility] 12-07-2022 14:23-0400 Diastolic blood pressure 74 mm[Hg] Dr. Spenser Sanchez Work Phone: [facility] 12-07-2022 14:23-0400 Heart rate 84 /min Dr. Spenser aSnchez Work Phone: [facility] 12-07-2022 14:23-0400 Respiratory rate 18 /min Dr. Spenser Sanchez Work Phone: [facility] 12-07-2022 14:23-0400 SaO2% (BldA) [Mass fraction] 92 % Dr. Spenser Sanchez Work Phone: [facility] 12-07-2022 14:23-0400 Systolic blood pressure 135 mm[Hg] Dr. Spenser Sanchez Work Phone: [facility] 11-30-2022 15:40-0400 Heart rate 89 /min Dr. Spenser Sanchez Work Phone: [facility] 11-30-2022 15:40-0400 Respiratory rate 21 /min Dr. Spenser Sanchez Work Phone: [facility] 11-30-2022 15:30-0400 Diastolic blood pressure 92 mm[Hg] Dr. Spenser Sanchez Work Phone: [facility] 11-30-2022 15:30-0400 Systolic blood pressure 151 mm[Hg] Dr. Spenser Sanchez Work Phone: [facility] 11-30-2022 11:32-0400 Diastolic blood pressure 85 mm[Hg] Dr. Spenser Sanchez Work Phone: [facility] 11-30-2022 11:32-0400 Heart rate 88 /min Dr. Spenser Sanchez Work Phone: [facility] 11-30-2022 11:32-0400 Respiratory rate 18 /min Dr. Spenser Sanchez Work Phone: [facility] 11-30-2022 11:32-0400 SaO2% (BldA) [Mass fraction] 96 % Dr. Spenser Sanchez Work Phone: [facility] 11-30-2022 11:32-0400 Systolic blood pressure 154 mm[Hg] Dr. Spenser Sanchez Work Phone: [facility] 11-30-2022 11:21-0400 Body height 170.[address] Spenser Sanchez Work Phone: [facility] 11-30-2022 11:21-0400 Body mass index (BMI) [Ratio] 23 kg/m2 Dr. Spenser Sanchez Work Phone: [facility] 11-30-2022 11:21-0400 Body temperature 97 [degF] Dr. Spenser Sanchez Work Phone: [facility] 11-30-2022 11:21-0400 Body weight 66.[address] Spenser Sanchez Work Phone: [facility] 11-27-2022 07:48-0400 Body height 172.[address] Spenser Sanchez Work Phone: [facility] 11-27-2022 07:48-0400 Body weight 66.[address] Spenser Sanchez Work Phone: [facility] 11-26-2022 07:36-0400 Body mass index (BMI) [Ratio] 22.3 kg/m2 Dr. Spenser Sanchez Work Phone: [facility] 11-20-2022 08:26-0400 Body mass index (BMI) [Ratio] 21.7 kg/m2 Dr. Spenser Sanchez Work Phone: [facility] 11-20-2022 08:26-0400 Body weight 66.[address] Spenser Sanchez Work Phone: [facility] 11-20-2022 08:26-0400 Diastolic blood pressure 54 mm[Hg] Dr. Spenser Sanchez Work Phone: [facility] 11-20-2022 08:26-0400 Heart rate 82 /min Dr. Spenser Sanchez Work Phone: [facility] 11-20-2022 08:26-0400 Respiratory rate 16 /min Dr. Spenser Sanchez Work Phone: [facility] 11-20-2022 08:26-0400 Systolic blood pressure 135 mm[Hg] Dr. Spenser Sanchez Work Phone: [facility] 11-16-2022 10:59-0400 Body temperature 98.1 [degF] Dr. Spenser Sanchez Work Phone: [facility] 11-16-2022 10:59-0400 Diastolic blood pressure 78 mm[Hg] Dr. Spenser Sanchez Work Phone: [facility] 11-16-2022 10:59-0400 Heart rate 81 /min Dr. Spenser Sanchez Work Phone: [facility] 11-16-2022 10:59-0400 Respiratory rate 18 /min Dr. Spenser Sanchez Work Phone: [facility] 11-16-2022 10:59-0400 SaO2% (BldA) [Mass fraction] 98 % Dr. Spenser Sanchez Work Phone: [facility] 11-16-2022 10:59-0400 Systolic blood pressure 122 mm[Hg] Dr. Spenser Sanchez Work Phone: [facility] 11-16-2022 05:34-0400 Body mass index (BMI) [Ratio] 21.5 kg/m2 Dr. Spenser Sanchez Work Phone: [facility] 11-16-2022 05:34-0400 Body weight [address] Spenser Sanchez Work Phone: [facility] 11-14-2022 06:29-0400 Body height 175.[address] Spenser Sanchez Work Phone: [facility] 11-14-2022 05:35-0400 Body temperature 97.9 [degF] Dr. Spenser Sanchez Work Phone: [facility] 11-14-2022 05:35-0400 Diastolic blood pressure 69 mm[Hg] Dr. Spenser Sanchez Work Phone: [facility] 11-14-2022 05:35-0400 Heart rate 65 /min Dr. Spenser Sanchez Work Phone: [facility] 11-14-2022 05:35-0400 Respiratory rate 14 /min Dr. Spenser Sanchez Work Phone: [facility] 11-14-2022 05:35-0400 SaO2% (BldA) [Mass fraction] 95 % Dr. Spenser Sanchez Work Phone: [facility] 11-14-2022 05:35-0400 Systolic blood pressure 143 mm[Hg] Dr. Spenser Sanchez Work Phone: [facility] 11-14-2022 02:07-0400 Body height 170.[address] Spenser Sanchez Work Phone: [facility] 11-14-2022 02:07-0400 Body mass index (BMI) [Ratio] 24 kg/m2 Dr. Spenser Sanchez Work Phone: [facility] 11-14-2022 02:07-0400 Body weight 69.[address] Spenser Sanchez Work Phone: [facility] 11-10-2022 06:14-0400 Body mass index (BMI) [Ratio] 23.5 kg/m2 Dr. Spenser Sanchez Work Phone: [facility] 11-10-2022 06:14-0400 Body temperature 97.2 [degF] Dr. Spenser Sanchez Work Phone: [facility] 11-10-2022 06:14-0400 Body weight 68.[address] Spenser Sanchez Work Phone: [facility] 11-10-2022 06:14-0400 Diastolic blood pressure 76 mm[Hg] Dr. Spenser Sanchez Work Phone: [facility] 11-10-2022 06:14-0400 Heart rate 91 /min Dr. Spenser Sanchez Work Phone: [facility] 11-10-2022 06:14-0400 Respiratory rate 18 /min Dr. Spenser Sanchez Work Phone: [facility] 11-10-2022 06:14-0400 SaO2% (BldA) [Mass fraction] 95 % Dr. Spenser Sanchez Work Phone: [facility] 11-10-2022 06:14-0400 Systolic blood pressure 137 mm[Hg] Dr. Spenser Sanchez Work Phone: [facility] 11-01-2022 13:42-0400 Diastolic blood pressure 98 mm[Hg] Dr. Spenser Sanchez Work Phone: [facility] 11-01-2022 13:42-0400 Heart rate 80 /min Dr. Spenser Sanchez Work Phone: [facility] 11-01-2022 13:42-0400 Respiratory rate 18 /min Dr. Spenser Sanchez Work Phone: [facility] 11-01-2022 13:42-0400 SaO2% (BldA) [Mass fraction] 98 % Dr. Spenser Sanchez Work Phone: [facility] 11-01-2022 13:42-0400 Systolic blood pressure 171 mm[Hg] Dr. Spenser Sanchez Work Phone: [facility] 11-01-2022 08:10-0400 Body height 170.[address] Spenser Sanchez Work Phone: [facility] 11-01-2022 08:10-0400 Body mass index (BMI) [Ratio] 23.5 kg/m2 Dr. Spenser Sanchez Work Phone: [facility] 11-01-2022 08:10-0400 Body temperature 97.8 [degF] Dr. Spenser Sanchez Work Phone: [facility] 11-01-2022 08:10-0400 Body weight 68.[address] Spenser Sanchez Work Phone: [facility] 10-26-2022 13:52-0400 Body mass index (BMI) [Ratio] 23.8 kg/m2 Dr. Spenser Sanchez Work Phone: [facility] 10-26-2022 13:52-0400 Body weight 68.[address] Spenser Sanchez Work Phone: [facility] 10-13-2022 16:50-0400 Respiratory rate 18 /min Dr. Spenser Sanchez Work Phone: [facility] 10-13-2022 14:41-0400 Body mass index (BMI) [Ratio] 23.5 kg/m2 Dr. Spenser Sanchez Work Phone: [facility] 10-13-2022 14:41-0400 Body temperature 96.8 [degF] Dr. Spenser Sanchez Work Phone: [facility] 10-13-2022 14:41-0400 Body weight 68.[address] Spenser Sanchez Work Phone: [facility] 10-13-2022 14:41-0400 Diastolic blood pressure 93 mm[Hg] Dr. Spenser Sanchez Work Phone: [facility] 10-13-2022 14:41-0400 Heart rate 89 /min Dr. Spenser Sanchez Work Phone: [facility] 10-13-2022 14:41-0400 SaO2% (BldA) [Mass fraction] 95 % Dr. Spenser Sanchez Work Phone: [facility] 10-13-2022 14:41-0400 Systolic blood pressure 177 mm[Hg] Dr. Spenser Sanchez Work Phone: [facility] 10-07-2022 13:24-0400 Body mass index (BMI) [Ratio] 23.6 kg/m2 Dr. Spenser Sanchez Work Phone: [facility] 10-07-2022 13:24-0400 Body temperature 97.8 [degF] Dr. Spenser Sanchez Work Phone: [facility] 10-07-2022 13:24-0400 Body weight 68.[address] Spenser Sanchez Work Phone: [facility] 10-07-2022 13:24-0400 Diastolic blood pressure 72 mm[Hg] Dr. Spenser Sanchez Work Phone: [facility] 10-07-2022 13:24-0400 Heart rate 81 /min Dr. Spenser Sanchez Work Phone: [facility] 10-07-2022 13:24-0400 Respiratory rate 16 /min Dr. Spenser Sanchez Work Phone: [facility] 10-07-2022 13:24-0400 SaO2% (BldA) [Mass fraction] 97 % Dr. Spenser Sanchez Work Phone: [facility] 10-07-2022 13:24-0400 Systolic blood pressure 138 mm[Hg] Dr. Spenser Sanchez Work Phone: [facility] 08-08-2022 18:09-0400 Heart rate 92 /min Dr. Spenser Sanchez Work Phone: [facility] 08-08-2022 18:09-0400 Respiratory rate 18 /min Dr. Spenser Sanchez Work Phone: [facility] 08-08-2022 18:09-0400 SaO2% (BldA) [Mass fraction] 95 % Dr. Spenser Sanchez Work Phone: [facility] 08-08-2022 17:00-0400 Body temperature 100 [degF] Dr. Spenser Sanchez Work Phone: [facility] 08-08-2022 17:00-0400 Diastolic blood pressure 80 mm[Hg] Dr. Spenser Sanchez Work Phone: [facility] 08-08-2022 17:00-0400 Systolic blood pressure 127 mm[Hg] Dr. Spenser Sanchez Work Phone: [facility] 08-08-2022 14:41-0400 Body height 170.[address] Spenser Sanchez Work Phone: [facility] 08-08-2022 14:41-0400 Body mass index (BMI) [Ratio] 23.2 kg/m2 Dr. Spenser Sanchez Work Phone: [facility] 08-08-2022 14:41-0400 Body weight 67.[address] Spenser Sanchez Work Phone: [facility] 07-31-2022 17:03-0400 Body temperature 97.8 [degF] Dr. Spenser Sanchez Work Phone: [facility] 07-31-2022 17:03-0400 Diastolic blood pressure 78 mm[Hg] Dr. Spenser Sanchez Work Phone: [facility] 07-31-2022 17:03-0400 Heart rate 78 /min Dr. Spenser Sanchez Work Phone: [facility] 07-31-2022 17:03-0400 Respiratory rate 16 /min Dr. Spenser Sanchez Work Phone: [facility] 07-31-2022 17:03-0400 SaO2% (BldA) [Mass fraction] 99 % Dr. Spenser Sanchez Work Phone: [facility] 07-31-2022 17:03-0400 Systolic blood pressure 126 mm[Hg] Dr. Spenser Sanchez Work Phone: [facility] 07-31-2022 16:16-0400 Body height 170.[address] Spenser Sanchez Work Phone: [facility] 07-31-2022 16:16-0400 Body mass index (BMI) [Ratio] 23.6 kg/m2 Dr. Spenser Sanchez Work Phone: [facility] 07-31-2022 16:16-0400 Body weight 68.[address] Spenser Sanchez Work Phone: [facility] 07-26-2022 13:17-0400 Heart rate 82 /min Dr. Spenser Sanchez Work Phone: [facility] 07-26-2022 13:17-0400 Respiratory rate 20 /min Dr. Spenser Sanchez Work Phone: [facility] 07-26-2022 11:32-0400 Body temperature 98.5 [degF] Dr. Spenser Sanchez Work Phone: [facility] 07-26-2022 11:32-0400 Diastolic blood pressure 81 mm[Hg] Dr. Spenser Sanchez Work Phone: [facility] 07-26-2022 11:32-0400 SaO2% (BldA) [Mass fraction] 94 % Dr. Spenser Sanchez Work Phone: [facility] 07-26-2022 11:32-0400 Systolic blood pressure 143 mm[Hg] Dr. Spenser Sanchez Work Phone: [facility] 07-26-2022 08:31-0400 Inhaled oxygen flow rate 3 L/min Dr. Spenser Sanchez Work Phone: [facility] 07-25-2022 13:06-0400 Body height 170.[address] Spenser Sanchez Work Phone: [facility] 07-25-2022 13:06-0400 Body mass index (BMI) [Ratio] 23.4 kg/m2 Dr. Spenser Sanchez Work Phone: [facility] 07-25-2022 13:06-0400 Body weight 67.[address] Spenser Sanchez Work Phone: [facility] 07-25-2022 12:40-0400 Body temperature 98 [degF] Dr. Spenser Sanchez Work Phone: [facility] 07-25-2022 12:40-0400 Diastolic blood pressure 78 mm[Hg] Dr. Spenser Sanchez Work Phone: [facility] 07-25-2022 12:40-0400 Heart rate 81 /min Dr. Spenser Sanchez Work Phone: [facility] 07-25-2022 12:40-0400 Respiratory rate 14 /min Dr. Spenser Sanchez Work Phone: [facility] 07-25-2022 12:40-0400 SaO2% (BldA) [Mass fraction] 92 % Dr. Spenser Sanchez Work Phone: [facility] 07-25-2022 12:40-0400 Systolic blood pressure 143 mm[Hg] Dr. Spenser Sanchez Work Phone: [facility] 07-25-2022 07:16-0400 Body height 170.[address] Spenser Sanchez Work Phone: [facility] 07-25-2022 07:16-0400 Body mass index (BMI) [Ratio] 21.7 kg/m2 Dr. Spenser Sanchez Work Phone: [facility] 07-25-2022 07:16-0400 Body weight 63.[address] Spenser Sanchez Work Phone: [facility] 07-10-2022 14:26-0500 Body height 170.2 cm Uriah Mcarthur PA-C Work Phone: [facility] 07-10-2022 14:26-0500 Body weight 68.04 kg Uriah Mcarthur PA-C Work Phone: [facility] 07-10-2022 14:26-0500 Diastolic blood pressure 84 mm[Hg] Uriah Mcarthur PA-C Work Phone: [facility] 07-10-2022 14:26-0500 Heart rate 99 /min Uriah Mcarthur PA-C Work Phone: [facility] 07-10-2022 14:26-0500 SaO2% (BldA) [Mass fraction] 97 % Uriah Mcarthur PA-C Work Phone: [facility] 07-10-2022 14:26-0500 Systolic blood pressure 138 mm[Hg] Uriah Mcarthur PA-C Work Phone: [facility] 07-06-2022 13:23-0500 Body height 170.[address] Spenser Sanchez Work Phone: [facility] 07-06-2022 13:23-0500 Body mass index (BMI) [Ratio] 23.1 kg/m2 Dr. Spenser Sanchez Work Phone: [facility] 07-06-2022 13:23-0500 Body temperature 97.2 [degF] Dr. Spenser Sanchez Work Phone: [facility] 07-06-2022 13:23-0500 Body weight 67.[address] Spenser Sanchez Work Phone: [facility] 07-06-2022 13:23-0500 Diastolic blood pressure 88 mm[Hg] Dr. Spenser Sanchez Work Phone: [facility] 07-06-2022 13:23-0500 Heart rate 91 /min Dr. Spenser Sanchez Work Phone: [facility] 07-06-2022 13:23-0500 Respiratory rate 14 /min Dr. Spenser Sanchez Work Phone: [facility] 07-06-2022 13:23-0500 SaO2% (BldA) [Mass fraction] 95 % Dr. Spenser Sanchez Work Phone: [facility] 07-06-2022 13:23-0500 Systolic blood pressure 162 mm[Hg] Dr. Spenser Sanchez Work Phone: [facility] 06-30-2022 14:00-0500 Body mass index (BMI) [Ratio] 23.5 kg/m2 Dr. Spenser Sanchez Work Phone: [facility] 06-30-2022 14:00-0500 Body weight 68.[address] Spenser Sanchez Work Phone: [facility] 06-30-2022 14:00-0500 Diastolic blood pressure 82 mm[Hg] Dr. Spenser Sanchez Work Phone: [facility] 06-30-2022 14:00-0500 Heart rate 81 /min Dr. Spenser Sanchez Work Phone: [facility] 06-30-2022 14:00-0500 Respiratory rate 18 /min Dr. Spenser Sanchez Work Phone: [facility] 06-30-2022 14:00-0500 SaO2% (BldA) [Mass fraction] 94 % Dr. Spenser Sanchez Work Phone: [facility] 06-30-2022 14:00-0500 Systolic blood pressure 148 mm[Hg] Dr. Spenser Sanchez Work Phone: [facility] 06-17-2022 13:20-0500 Body mass index (BMI) [Ratio] 23 kg/m2 Dr. Spenser Sanchez Work Phone: [facility] 06-17-2022 13:20-0500 Body temperature 97.6 [degF] Dr. Spenser Sanchez Work Phone: [facility] 06-17-2022 13:20-0500 Body weight 66.[address] Spenser Sanchez Work Phone: [facility] 06-17-2022 13:20-0500 Diastolic blood pressure 80 mm[Hg] Dr. Spenser Sanchez Work Phone: [facility] 06-17-2022 13:20-0500 Heart rate 75 /min Dr. Spenser Sanchez Work Phone: [facility] 06-17-2022 13:20-0500 Respiratory rate 16 /min Dr. Spenser Sanchez Work Phone: [facility] 06-17-2022 13:20-0500 SaO2% (BldA) [Mass fraction] 97 % Dr. Spenser Sanchez Work Phone: [facility] 06-17-2022 13:20-0500 Systolic blood pressure 142 mm[Hg] Dr. Spenser Sanchez Work Phone: [facility] 05-20-2022 07:08-0500 Body height 170.[address] Spenser Sanchez Work Phone: [facility] 05-20-2022 07:08-0500 Body mass index (BMI) [Ratio] 23.3 kg/m2 Dr. Spenser Sanchez Work Phone: [facility] 05-20-2022 07:08-0500 Body temperature 97.5 [degF] Dr. Spenser Sanchez Work Phone: [facility] 05-20-2022 07:08-0500 Body weight 67.[address] Spenser Sanchez Work Phone: [facility] 05-20-2022 07:08-0500 Diastolic blood pressure 80 mm[Hg] Dr. Spenser Sanchez Work Phone: [facility] 05-20-2022 07:08-0500 Heart rate 79 /min Dr. Spenser Sanchez Work Phone: [facility] 05-20-2022 07:08-0500 Respiratory rate 18 /min Dr. Spenser Sanchez Work Phone: [facility] 05-20-2022 07:08-0500 SaO2% (BldA) [Mass fraction] 97 % Dr. Spenser Sanchez Work Phone: [facility] 05-20-2022 07:08-0500 Systolic blood pressure 145 mm[Hg] Dr. Spenser Sanchez Work Phone: [facility] 04-30-2022 14:10-0500 Body height 170.[address] Spenser Sanchez Work Phone: [facility] Work Phone: 04-30-2022 14:10-0500 Body mass index (BMI) [Ratio] 23.3 kg/m2 Dr. Spenser Sanchez Work Phone: [facility] 04-30-2022 14:10-0500 Body temperature 97.7 [degF] Dr. Spenser Sanchez Work Phone: [facility] 04-30-2022 14:10-0500 Body weight 67.[address] Spenser Sanchez Work Phone: [facility] 04-30-2022 14:10-0500 Diastolic blood pressure 62 mm[Hg] Dr. Spenser Sanchez Work Phone: [facility] 04-30-2022 14:10-0500 Heart rate 77 /min Dr. Spenser Sanchez Work Phone: [facility] 04-30-2022 14:10-0500 Respiratory rate 16 /min Dr. Spenser Sanchez Work Phone: [facility] 04-30-2022 14:10-0500 SaO2% (BldA) [Mass fraction] 97 % Dr. Spenser Sanchez Work Phone: [facility] 04-30-2022 14:10-0500 Systolic blood pressure 122 mm[Hg] [facility]. Spenser Sanchez Work Phone: [facility] [facility] 03-25-2022 15:38-0500 Body height 170.[address] Spenser Sanchez Work Phone: [facility] Work Phone: 03-25-2022 15:38-0500 Body mass index (BMI) [Ratio] 23.3 kg/m2 Dr. Spenser Sanchez Work Phone: [facility] 03-25-2022 15:38-0500 Body temperature 96.6 [degF] Dr. Spenser Sanchez Work Phone: [facility] 03-25-2022 15:38-0500 Body weight 67.[address] Spenser Sanchez Work Phone: [facility] 03-25-2022 15:38-0500 Diastolic blood pressure 60 mm[Hg] Dr. Spenser Sanchez Work Phone: [facility] 03-25-2022 15:38-0500 Heart rate 84 /min Dr. Spenser Sanchez Work Phone: [facility] 03-25-2022 15:38-0500 Respiratory rate 16 /min Dr. Spenser Sanchez Work Phone: [facility] 03-25-2022 15:38-0500 SaO2% (BldA) [Mass fraction] 96 % Dr. Spenser Sanchez Work Phone: [facility] 03-25-2022 15:38-0500 Systolic blood pressure 130 mm[Hg] Dr. Spenser Sanchez Work Phone: [facility] 12-29-2021 14:35-0400 Body height 170.[address] Spenser Sanchez Work Phone: [facility] Work Phone: 12-29-2021 14:35-0400 Body mass index (BMI) [Ratio] 23.1 kg/m2 Dr. Spenser Sanchez Work Phone: [facility] Work Phone: 12-29-2021 14:35-0400 Body weight 67.[address] Spenser Sanchez Work Phone: [facility] Work Phone: 12-29-2021 14:35-0400 Diastolic blood pressure 57 mm[Hg] Dr. Spenser Sanchez Work Phone: [facility] Work Phone: 12-29-2021 14:35-0400 Heart rate 74 /min Dr. Spenser Sanchez Work Phone: [facility] Work Phone: 12-29-2021 14:35-0400 Respiratory rate 16 /min Dr. Spenser Sanchez Work Phone: [facility] Work Phone: 12-29-2021 14:35-0400 Systolic blood pressure 102 mm[Hg] Dr. Spenser Sanchez Work Phone: [facility] Work Phone: 12-29-2021 13:33-0400 Body mass index (BMI) [Ratio] 23.1 kg/m2 Dr. Spenser Sanchez Work Phone: [facility] Work Phone: 12-29-2021 13:33-0400 Body temperature 96.8 [degF] Dr. Spenser Sanchez Work Phone: [facility] Work Phone: 12-29-2021 13:33-0400 Body weight 67.[address] Spenser Sanchez Work Phone: [facility] Work Phone: 12-29-2021 13:33-0400 Diastolic blood pressure 62 mm[Hg] Dr. Spenser Snachez Work Phone: [facility] Work Phone: 12-29-2021 13:33-0400 Heart rate 94 /min Dr. Spenser Sanchez Work Phone: [facility] Work Phone: 12-29-2021 13:33-0400 Respiratory rate 16 /min Dr. Spenser aSnchez Work Phone: [facility] Work Phone: 12-29-2021 13:33-0400 SaO2% (BldA) [Mass fraction] 95 % Dr. Spenser Sanchez Work Phone: [facility] Work Phone: 12-29-2021 13:33-0400 Systolic blood pressure 132 mm[Hg] Dr. Spenser Sanchez Work Phone: [facility] Work Phone: 11-11-2021 13:04-0400 Body mass index (BMI) [Ratio] 22.8 kg/m2 Dr. Spenser Sanchez Work Phone: [facility] Work Phone: 11-11-2021 13:04-0400 Body temperature 98.6 [degF] Dr. Spenser Sanchez Work Phone: [facility] Work Phone: 11-11-2021 13:04-0400 Body weight 66.[address] Spenser Sanchez Work Phone: [facility] Work Phone: 11-11-2021 13:04-0400 Diastolic blood pressure 56 mm[Hg] Dr. Spenser Sanchez Work Phone: [facility] Work Phone: 11-11-2021 13:04-0400 Heart rate 64 /min Dr. Spenser Sanchez Work Phone: [facility] Work Phone: 11-11-2021 13:04-0400 Respiratory rate 17 /min Dr. Spenser Sanchez Work Phone: [facility] Work Phone: 11-11-2021 13:04-0400 SaO2% (BldA) [Mass fraction] 97 % Dr. Spenser Sanchez Work Phone: [facility] Work Phone: 11-11-2021 13:04-0400 Systolic blood pressure 124 mm[Hg] Dr. Spenser Sanchez Work Phone: [facility] Work Phone: 09-24-2021 13:31-0400 Body temperature 97.3 [degF] Dr. Spenser Sanchez Work Phone: [facility] Work Phone: 09-24-2021 13:31-0400 Body weight 67.[address] Spenser Sanchez Work Phone: [facility] Work Phone: 09-24-2021 13:31-0400 Diastolic blood pressure 70 mm[Hg] Dr. Spenser Sanchez Work Phone: [facility] Work Phone: 09-24-2021 13:31-0400 Heart rate 79 /min Dr. Spenser Sanchez Work Phone: [facility] Work Phone: 09-24-2021 13:31-0400 Respiratory rate 16 /min Dr. Spenser Sanchez Work Phone: [facility] Work Phone: 09-24-2021 13:31-0400 SaO2% (BldA) [Mass fraction] 96 % Dr. Spenser Sanchez Work Phone: [facility] Work Phone: 09-24-2021 13:31-0400 Systolic blood pressure 113 mm[Hg] Dr. Spenser Sanchez Work Phone: [facility] Work Phone: 06-07-2020 15:00-0500 Pulse (Heart Rate) 73 /min [facility] 06-07-2020 15:00-0500 Respiratory Rate 18 /min [facility] 06-07-2020 14:00-0500 BP Diastolic 73 mm[Hg] [facility] [place] 06-07-2020 14:00-0500 BP Systolic 132 mm[Hg] [facility] [place] 06-07-2020 13:30-0500 Pulse Oximetry 95 % [facility] [place] 06-07-2020 09:56-0500 Body Temperature 97.5 [degF] [facility] 06-07-2020 07:46-0500 BMI (Body Mass Index) 25.53 kg/m2 [facility] 06-07-2020 07:46-0500 Body weight 73.94 kg [facility] [place] 06-07-2020 07:46-0500 Height 170.2 cm [facility] [place] 12-16-2016 05:50-0400 BMI (Body Mass Index) 25.47 kg/m2 Lanny Tariqho BACTERIOLOGIST [facility] Work Phone: 12-16-2016 05:50-0400 Body Temperature 97.4 [degF] Lanny Davidnsho BACTERIOLOGIST [facility] Work Phone: 12-16-2016 05:50-0400 BP Diastolic 83 mm[Hg] Lanny Yensho BACTERIOLOGIST [facility] Work Phone: 12-16-2016 05:50-0400 BP Systolic 137 mm[Hg] Lanny Davidnsho BACTERIOLOGIST [facility] Work Phone: 12-16-2016 05:50-0400 Height 173.99 cm Lanny Tariqho BACTERIOLOGIST [facility] Work Phone: 12-16-2016 05:50-0400 Pulse (Heart Rate) 73 /min Lanny Davidnsho BACTERIOLOGIST [facility] Work Phone: 12-16-2016 05:50-0400 Respiratory Rate 18 /min Lanny Davidnsho BACTERIOLOGIST [facility] Work Phone: 12-16-2016 05:50-0400 Weight 77.11 kg Lanny Davidnsho BACTERIOLOGIST [facility] Work Phone: 08-28-2016 14:09-0400 BMI (Body Mass Index) 26.07 kg/m2 Angie Leigh [facility] Work Phone: 08-28-2016 14:09-0400 Body Temperature 97.4 [degF] Angie Leigh [facility] Work Phone: 08-28-2016 14:09-0400 BP Diastolic 90 mm[Hg] Angie Reese [facility] Work Phone: 08-28-2016 14:09-0400 BP Systolic 152 mm[Hg] Angie Reese [facility] Work Phone: 08-28-2016 14:09-0400 Height 173.99 cm Angie Reese [facility] Work Phone: 08-28-2016 14:09-0400 Pulse (Heart Rate) 79 /min Angie Leigh [facility] Work Phone: 08-28-2016 14:09-0400 Pulse Oximetry 97 % Angie Reese [facility] Work Phone: 08-28-2016 14:09-0400 Respiratory Rate 18 /min Angie Reese [facility] Work Phone: 08-28-2016 14:09-0400 Weight 78.93 kg Angie Reese [facility] Work Phone: 06-10-2016 11:39-0500 Body Temperature 96.98 [degF] Angie Reese [facility] Work Phone: 06-10-2016 11:39-0500 BSA (Body Surface Area) 1.96 m2 Angie Leigh [facility] Phone: 06-10-2016 11:39-0500 Height 173.99 cm Angie Reese [facility] Work Phone: 06-10-2016 11:39-0500 Weight 80.91 kg Angie Reese [facility] Work Phone: Encounters Encounter Date Encounter Type Care Provider Facility Start: 03-06-2025 ambulatory Radha Bobbying Facili ty:[facility] Start: 02-27-2025 End: 02-27-2025 ambulatory Jeremiah Mckeon [facility] Facility:[facility] Start: 02-26-2025 ambulatory Jeremiah Mckeon [facility] Facility :[facility] Start: 02-21-2025 End: 02-21-2025 ambulatory Jeremiah Mckeon C Facility:[facility] Start: 02-20-2025 End: 02-20-2025 [facility] Facility:[facility] Start: 01-12-2025 End: 01-12-2025 ambulatory Jeremiah Mckeon MEDICATION CARE MANAGER-C Work Phone: -Laboratory Start: 01-12-2025 End: 01-12-2025 Patient encounter procedure Zejosh Beam MEDICATION CARE MANAGER-C -Laboratory Work Phone: Start: 01-12-2025 End: 01-12-2025 ambulatory [facility] Facility:[facility] Start: 01-08-2025 End: 01-08-2025 Patient encounter procedure Phi Baez [facility] Work Phone: Start: 01-08-2025 End: 01-08-2025 ambulatory Jeremiah Mckeon MEDICATION CARE MANAGER-C Work Phone: [facility] Start: 01-07-2025 End: 01-07-2025 Emergency department patient visit Jeremiah Mckeon MEDICATION CARE MANAGER-C Work Phone: -Emergency Department Work Phone: Start: 01-06-2025 End: 01-06-2025 Emergency department patient visit Jeremiah Mckeon MEDICATION CARE MANAGER-C Work Phone: -Emergency Department Work Phone: Start: 10-18-2024 ambulatory Faraz Gonzáles Facility :[facility] Start: 09-27-2024 End: 09-27-2024 Patient encounter procedure Monalisa Lyon MEDICATION CARE MANAGER-C -[facility] Work Phone: Start: 09-27-2024 End: 09-27-2024 Monalisa Lyon MEDICATION CARE MANAGER-C -[facility] Work Phone: Start: 09-27-2024 End: 09-27-2024 ambulatory Tiffanie Carr MEDICATION CARE MANAGER-C Work Phone: [facility] Work Phone: Start: 08-31-2024 End: 08-31-[address] Spenser Sanchez MD Work Phone: [facility] Work Phone: Start: 08-31-2024 End: 08-31-2024 Monalisa Lyon NP-C -[facility], [facility] Work Phone: Start: 08-31-2024 End: 08-31-2024 ambulatory [facility] Facility:[facility] Start: 08-11-2024 Dr. Tiki Saldivar MD -[facility] Work Phone: Start: 08-10-2024 ambulatory Rhys Fontana Fac ility:[facility] Start: 08-10-2024 End: 08-11-2024 Evaluation and management of inpatient Dr. Spenser Sanchez MD Work Phone: [facility] Work Phone: Start: 08-10-2024 End: 08-11-2024 Dr. Tiki Saldivar MD -Medical Surgical 3 Work Phone: Start: 08-10-[address] [facility] Start: 08-10-2024 End: 08-10-2024 ambulatory [facility] [place] Start: 08-10-2024 End: 08-10-2024 Dr. Christiano Steinberg MD -[facility] Work Phone: Start: 08-09-[address] DO [facility] Start: 08-09-2024 Dr. Rhys Fontana MD -[facility] Work Phone: Start: 08-09-2024 ambulatory Rhys Fontana Fac ility:[facility] Start: 08-09-[address] Quincy Sanchez MD Work Phone: [facility] Work Phone: Start: 08-09-2024 Dr. Rhys Fontana MD -Medical Surgical 3 Work Phone: Start: 08-03-2024 End: 08-03-2024 Addy Luciano NP-C -Laboratory, Kylah Francesfranky Start: 08-02-2024 End: 08-02-2024 Nanette Macdonald NP-C -[facility] Work Phone: Start: 08-02-2024 End: 08-03-2024 ambulatory Jeremiah Mckeon [facility] Facility:[facility] Start: 08-02-2024 End: 08-02-2024 ambulatory Nanette Macdonald Facility:[facility] Start: 07-28-2024 Dr. Rhsy Fontana MD -[facility] Work Phone: Start: 07-27-2024 End: 07-28-2024 ambulatory Rhys Fontana Facility:[facility] Start: 07-27-2024 End: 07-28-[address] Spenser Sanchez MD Work Phone: [facility] Work Phone: Start: 07-27-2024 End: 07-28-2024 Dr. Tiki Saldivar MD -Pro[facility] Work Phone: Start: 07-26-2024 End: 07-26-[address] Spenser Sanchez MD Work Phone: [facility] Work Phone: Start: 07-26-2024 End: 07-26-2024 Nanette Macdonald NP-C -Laboratory, [place] Start: 07-26-2024 End: 07-26-2024 ambulatory Nanette Macdonald Facility:[facility] Start: 07-18-2024 ambulatory Faraz Gonzáles Facility :[facility] Start: 07-18-2024 Faraz Gonzáles [facility] Start: 07-18-2024 End: 07-18-[address] Spenser Sanchez MD Work Phone: [facility] Work Phone: Start: 07-18-2024 End: 07-18-2024 Faraz Gonzáles DO -Endoscopy Work Phone: Start: 06-14-2024 End: 06-14-2024 Monalisa Lyon MEDICATION CARE MANAGER-C -[facility] Work Phone: Start: 06-14-2024 End: 06-14-2024 ambulatory [facility] Facility:[facility] Start: 06-06-2024 End: 06-06-2024 [facility]ISHA [facility] Work Phone: Start: 06-06-2024 End: 06-06-2024 ambulatory Jeremiah Mckeon [facility] Facility:[facility] Start: 05-11-2024 End: 05-11-2024 Tracy Klein [place] -[facility] Work Phone: Start: 05-11-2024 End: 05-11-2024 ambulatory [facility] Start: 05-04-2024 ambulatory Tracy Klein [facility] Start: 05-04-2024 End: 05-04-2024 Dr. Heri Williamson [facility] Start: 05-04-2024 End: 05-04-2024 ambulatory [facility] Facility:[facility] Start: 04-30-2024 End: 04-30-2024 Dr. Faizan Dotson DO -Emergency Department Work Phone: Start: 04-30-2024 End: 04-30-2024 Emergency department patient visit [facility] Facility:[facility] Start: 04-21-2024 End: 04-21-2024 AISHA Carr -[facility] Work Phone: Start: 04-21-2024 End: 04-21-2024 ambulatory [facility] Facility:[facility] Start: 04-19-2024 End: 04-19-2024 Dr. Spenser Sanchez MD -[facility] Work Phone: Start: 04-19-2024 End: 04-19-2024 ambulatory [facility] [place] Start: 04-19-2024 End: 04-19-2024 ambulatory [facility] Facility:[facility] Start: 04-11-2024 End: 04-11-2024 Dr. Xavi Almonte MD -Emergency [facility] Work Phone: Start: 04-11-2024 End: 04-11-2024 Emergency department patient visit [facility] Facility:[facility] Start: 03-23-2024 End: 03-23-2024 Nanette Macdonald MEDICATION CARE MANAGER-C -Laboratory, [place] Start: 03-23-2024 End: 03-23-2024 ambulatory Nanette Macdonald Facility:[facility] Start: 03-21-2024 End: 03-21-2024 Nanette Macdonald MEDICATION CARE MANAGER-C -[facility] Work Phone: Start: 03-21-2024 End: 03-21-2024 ambulatory Nanette Macdonald [place] Start: 08-10-2023 End: 08-10-[address] Spenser Sanchez Work Phone: [facility] Work Phone: Start: 08-10-2023 End: 08-10-[address] Spenser Sanchez Work Phone: [facility]-Laboratory Work Phone: Start: 08-03-2023 End: 08-03-[address] Spenser Sanchez Work Phone: [facility] Work Phone: Start: 05-19-2023 End: 05-19-[address] Spenser Sanchez Work Phone: [facility] Work Phone: Start: 05-17-2023 Non-patient / Non-visit Dr. Spenser Sanchez Work Phone: [facility] Start: 05-17-2023 End: 05-17-[address] Spenser Sanchez Work Phone: [facility] Work Phone: Start: 05-17-2023 End: 05-17-[address] [facility] Start: 05-12-2023 End: 05-12-[address] Spenser Sanchez Work Phone: [facility]-P[facility] Work Phone: Start: 05-10-2023 End: 05-10-[address] Spenser Sanchez Work Phone: [facility] Work Phone: Start: 05-05-2023 Non-patient / Non-visit Dr. Spenser Sanchez Work Phone: [facility] Start: 05-05-2023 End: 05-05-[address] Spenser Sanchez Work Phone: [facility] Work Phone: Start: 05-05-2023 End: 05-05-[address] [facility]enser Sanchez [facility] Start: 04-21-2023 End: 04-21-[address] Spenser Sanchez Work Phone: [facility] Work Phone: Start: 04-21-2023 End: 04-21-[address] Spenser Sanchez Work Phone: [facility]-Laboratory Work Phone: Start: 04-19-[address] Spenser Sanchez Work Phone: [facility] Start: 04-19-2023 End: 04-19-2023 Emergency department patient visit Dr. Spenser Sanchez Work Phone: [facility] Start: 04-19-2023 End: 04-19-[address] Spenser Sanchez Work Phone: [facility] Work Phone: Start: 2023 End: [address] Spenser Sanchez Work Phone: [facility] Work Phone: Start: 2023 End: [address] Spenser Sanchez Work Phone: [facility]-Laboratory Work Phone: Start: 04-14-2023 End: 04-14-[address] Spenser Sanchez Work Phone: [facility] Work Phone: Start: 04-13-2023 End: 04-13-[address] Spenser Sanchez Work Phone: [facility] Work Phone: Start: 03-19-[address] Surya Sanchez Work Phone: [facility]-Radiation Oncology Start: 03-19-2023 Non-patient / Non-visit Dr. Spenser Sanchez Work Phone: [facility] Work Phone: Start: 03-16-2023 End: 03-16-[address] Spenser Sanchez Work Phone: [facility] Work Phone: Start: 03-09-2023 End: 03-09-[address] Spenser Sanchez Work Phone: [facility] Work Phone: Start: 03-02-2023 End: 03-02-[address] Spenser Sanchez Work Phone: [facility] Work Phone: Start: 02-23-2023 End: 02-23-[address] Spenser Sanchez Work Phone: [facility] Work Phone: Start: 02-19-2023 Non-patient / Non-visit Dr. Spenser Sanchez Work Phone: [facility] Start: 02-16-2023 End: 02-16-[address] Spenser Sanchez Work Phone: [facility] Work Phone: Start: 02-11-2023 Non-patient / Non-visit Dr. Spenser Sanchez Work Phone: [facility] Start: 02-11-[address] Surya Sanchez Work Phone: [facility]-Radiation Oncology Start: 02-11-2023 End: 02-11-[address] Spenser Sanchez Work Phone: [facility] Work Phone: Start: 02-11-2023 End: 02-11-[address] Spenser Sanchez Work Phone: [facility] Work Phone: Start: 01-12-2023 End: 01-12-[address] Spenser Sanchez Work Phone: [facility] Work Phone: Start: 12-22-2022 End: 12-22-[address] Spenser Sanchez Work Phone: [facility] Work Phone: Start: 12-18-2022 End: 12-18-[address] Spenser Sanchez Work Phone: [facility] Work Phone: Start: 12-14-2022 End: 12-14-[address] Spenser Sanchez Work Phone: [facility] Work Phone: Start: 12-14-2022 End: 12-14-[address] Spenser Sanchez Work Phone: [facility]-Laboratory Work Phone: Start: 12-07-2022 End: 12-07-[address] Spenser Sanchez Work Phone: [facility] Work Phone: Start: 12-02-2022 Non-patient / Non-visit Dr. Spenser Sanchez Work Phone: [facility] Work Phone: Start: 12-01-2022 Non-patient / Non-visit Dr. Spenser Sanchez Work Phone: [facility] Start: 11-30-2022 End: 11-30-2022 Emergency department patient visit Dr. Spenser Sanchez Work Phone: [facility]-Emergency Department Work Phone: Start: 11-27-2022 End: 11-27-2022 Admission to same day surgery center Dr. Spenser Sanchez Work Phone: [facility]-Dye Mixer/Special Procedures Work Phone: Start: 11-27-2022 End: 11-27-[address] Spenser Sanchez Work Phone: [facility] Work Phone: Start: 11-24-2022 End: 11-24-[address] Spenser Sanchez Work Phone: [facility] Work Phone: Start: 11-24-2022 End: 11-24-[address] Spenser Sanchez Work Phone: [facility]-Laboratory Work Phone: Start: 11-20-2022 End: 11-20-[address] Spenser Sanchez Work Phone: [facility] Work Phone: Start: 11-16-2022 Non-patient / Non-visit Dr. Spenser Sanchez Work Phone: [facility] Work Phone: Start: 11-16-2022 Dr. Spenser Sanchez Work Phone: [facility] Work Phone: Start: 11-16-2022 End: 11-16-2022 Non-patient / Non-visit Dr. Spenser Sanchez Work Phone: [facility] Work Phone: Start: 11-15-2022 Non-patient / Non-visit Dr. Spenser Sanchez Work Phone: [facility] Start: 11-15-2022 Dr. Spenser Sanchez Work Phone: [facility] Start: 11-15-2022 Non-patient / Non-visit Dr. Spenser Sancehz Work Phone: [facility] Work Phone: Start: 11-15-2022 Dr. Spenser Sanchez Work Phone: [facility] Work Phone: Start: 11-14-2022 Non-patient / Non-visit Dr. Spenser Sanchez Work Phone: [facility] Start: 11-14-2022 Dr. Spenser Sanchez Work Phone: [facility] Start: 11-14-2022 End: 11-16-2022 Evaluation and management of inpatient Dr[facility] Spenser Sanchez [facility] Work [facility] Start: 11-14-2022 End: 11-16-2022 Dr. Spenser Sanchez [facility] Work [facility] Start: 11-10-2022 End: 11-10-[address] Spenser Sanchez Work Phone: [facility] [facility] Work Phone: Start: 11-10-2022 End: 11-10-2022 Dr. Spenser Sanchez Work Phone: [facility] Work Phone: Start: 11-01-2022 End: 11-01-2022 Emergency department patient visit Dr. Spenser Sanchez Work Phone: [facility]-Emergency Department Work Phone: Start: 11-01-2022 End: 11-01-2022 Dr. Spenser Sanchez Work Phone: [facility]-Emergency Department Work Phone: Start: 10-26-2022 End: 10-26-[address] Spenser Sanchez Work Phone: [facility] Work Phone: Start: 10-26-2022 End: 10-26-2022 Dr. Spenser Sanchez Work Phone: [facility] Work Phone: Start: 10-20-2022 End: 10-20-[address] Spenser Sanchez Work Phone: [facility] Start: 10-20-2022 End: 10-20-2022 Dr. Spenser Sanchez Work Phone: [facility] Start: 10-13-2022 End: 10-13-2022 Emergency department patient visit Dr. Spenser Sanchez Work Phone: [facility]-Emergency Department Work Phone: Start: 10-13-2022 End: 10-13-2022 Dr. Spenser Sanchez Work Phone: [facility]-Emergency Department Work Phone: Start: 10-07-2022 End: 10-07-[address] Spenser Sanchez Work Phone: [facility] Medicine Work Phone: Start: 10-07-2022 End: 10-07-2022 Dr. Spenser Sanchez Work Phone: [facility] Work Phone: Start: 08-26-2022 End: 08-26-[address] Spenser Sanchez Work Phone: [facility] Work Phone: Start: 08-26-2022 End: 08-26-[address] Spenser Sanchez Work Phone: [facility] Start: 08-26-2022 End: 08-26-2022 Dr. Spenser Sanchez Work Phone: [facility] Work Phone: Start: 08-18-2022 End: 08-18-[address] Spenser Sanchez Work Phone: [facility] Work Phone: Start: 08-18-2022 End: 08-18-[address] Spenser Sanchez Work Phone: [facility] Start: 08-18-2022 End: 08-18-2022 Dr. Spenser Sanchez Work Phone: [facility] Work Phone: Start: 08-13-2022 End: 08-13-[address] Spenser Sanchez Work Phone: [facility] Work Phone: Start: 08-13-2022 End: 08-13-[address] Spenser Sanchez Work Phone: [facility]-Laboratory, Specimen Start: 08-13-2022 End: 08-13-2022 Dr. [facility] Work [facility] Start: 08-08-2022 End: 08-08-2022 Emergency department patient visit Dr. Spenser Sanchez Work Phone: [facility]-Emergency Department Start: 08-08-2022 End: 08-08-2022 Dr. Spenser Sanchez Work Phone: [facility]-Emergency Department Work Phone: Start: 07-31-2022 End: 07-31-2022 Emergency department patient visit Dr. Spenser Sanchez Work Phone: [facility]-Emergency Department Start: 07-31-2022 End: 07-31-2022 Dr. Spenser Sanchez Work Phone: [facility]-Emergency Department Work Phone: Start: 07-26-2022 Non-patient / Non-visit Dr. Spenser Sanchez Work Phone: [facility] Start: 07-26-2022 Dr. Spenser Sanchez Work Phone: [facility] Work Phone: Start: 07-25-2022 End: 07-26-2022 Evaluation and management of inpatient Dr[facility] Spenser Sanchez [facility] Start: 07-25-2022 End: 07-26-2022 Dr. Spenser Sanchez Work Phone: [facility] Surgical 3 Work Phone: Start: 07-25-2022 Non-patient / Non-visit Dr. Spenser Sanchez Work Phone: [facility] Start: 07-25-2022 Dr. Spenser Sanchez Work Phone: [facility] Work Phone: Start: 07-25-2022 End: 07-26-2022 Evaluation and management of inpatient Dr. 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 Spenser Sanchez Work Phone: [facility] Work Phone: Start: 07-06-2022 End: 07-06-[address] Spenser Sanchez Work Phone: [facility] Start: 06-30-2022 End: 06-30-[address] Spenser Sanchez Work Phone: [facility] Start: 06-17-2022 End: 06-17-[address] Spenser Sanchez Work Phone: [facility] Start: 05-20-2022 End: 05-20-[address] [facility]ens[facility] Sanchez [facility] Start: 05-19-2022 End: 05-19-[address] Spenser Sanchez Work Phone: [facility] Work Phone: Start: 05-19-2022 End: 05-19-[address] Spenser Sanchez Work Phone: [facility] Start: 05-06-2022 Non-patient / Non-visit Dr. Spenser Sanchez Work Phone: [facility] Start: 05-06-2022 End: 05-06-[address] Spenser Sanchez Work Phone: [facility] Work Phone: Start: 05-06-2022 End: 05-06-[address] [facility]ens[facility] Sanchez [facility] Start: 05-05-2022 End: 05-05-[address] Spenser Sanchez Work Phone: [facility] Start: 05-01-2022 Non-patient / Non-visit Dr. Spenser Sanchez Work Phone: [facility] Start: 05-01-2022 End: 05-01-[address] Spenser Sanchez Work Phone: [facility] Work Phone: Start: 05-01-2022 End: 05-01-[address] [facility]ens[facility] Sanchez [facility] Start: 04-30-2022 End: 04-30-[address] Spenser Sanchez Work Phone: [facility] Start: 04-21-2022 End: 04-21-[address] Spenser Sanchez Work Phone: [facility] Start: 03-25-2022 End: 03-25-[address] Spenser Sanchez Work Phone: [facility] Work Phone: Start: 03-25-2022 End: 03-25-[address] Spenser Sanchez Work Phone: [facility] Start: 03-06-2022 End: 03-06-[address] Spenser Sanchez Work Phone: [facility] Start: 12-29-2021 End: 12-29-[address] Spenser Sanchez Work Phone: [facility] Start: 12-29-2021 End: 12-29-[address] Spenser Sanchez Work Phone: [facility] Work Phone: Start: 12-29-2021 End: 12-29-[address] Spenser Sanchez Work Phone: [facility] Start: 11-11-2021 End: 11-11-[address] Spenser Sanchez Work Phone: [facility] Start: 09-24-2021 End: 09-24-[address] 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); 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 Procedures Date Procedure Procedure Detail Performing Clinician Start: 01-12-2025 Antibody to centrome re measurement Jeremiah Mckeon MEDICATION CARE MANAGER-C Work Phone: Comment on above: Previous reported re sult: TNP AIEdited by: DELGADO on 01/15/25:1608 AMENDED REPORT 01/15/25 1608 ANTI-CENT B previously reported as: Test not performed Start: 01-12-2025 Antibody to extracta ble nuclear antigen measurement Jeremiah Mckeon MEDICATION CARE MANAGER-C Work Phone: Comment on above: Previous reported re sult: TNP AIEdited by: DELGADO on 01/15/25:1608 AMENDED REPORT 01/15/25 1608 KOCH Ab previously reported as: Test not performed Start: 01-12-2025 Antibody to MATT-1 measurement Jeremiah Mckeon MEDICATION CARE MANAGER-C Work Phone: Comment on above: Previous reported re sult: TNP AIEdited by: INFCE on 01/15/25:1608 AMENDED REPORT 01/15/25 1608 ANTI-MATT previously reported as: Test not performed Start: 01-12-2025 Antibody to lupus La protein measurement Jeremiah Mckeon MEDICATION CARE MANAGER-C Work Phone: Start: 01-12-2025 Antibody to SS-A measurement Jeremiah Mckeon MEDICATION CARE MANAGER-C Work Phone: Start: 01-12-2025 Autoantibody measurement Jeremiah Mckeon MEDICATION CARE MANAGER-C Work Phone: Comment on above: Previous reported re sult: TNP AIEdited by: DELGADO on 01/15/25:1608 AMENDED REPORT 01/15/25 1608 ANTICHROMATIN previously reported as: Test not performed Start: 01-12-2025 [employer] antibody measurement Jeremiah Mckeon MEDICATION CARE MANAGER-C Work Phone: Comment on above: Previous reported re sult: TNP AIEdited by: DANACE on 01/15/25:1608 AMENDED REPORT 01/15/25 1608 [employer]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 Spenser Sanchez MD Work [...] and 2.75 x 23 mm Cypher Stent, JIM-Prox LCx w/ 3.5 x 13 mm Cypher Stent and POBA-OM1 05/30/2007; TDI-Stot-ZBW w/ 3.0 x 18 mm, JIM-Mid LCx w/ 3.5 x 18 mm, and LCx Posterior lateral extension w/ 2.75 x 15 mm Xience Payal Stents; JIM-ISR-Mid LAD w/ 2.75 x 33 mm and 2.5 x 12 mm Xience Payal Stents 06/07/20;JIM-Resolute Jber [id number] to proximal LAD -11/27/2022. Start: 11-14-2022 Plain [...] dip stick/tabl et rgnt auto w/o microscopy Uriah HINES-C Work Phone: Start: 05-19-2022 CT of abdominal [...] 06-07-2020 End: 06-07-2020 Coagulation time activated Denis Vincent Jamel sheng Work Phone: Start: 06-07-2020 Catheterization and angiography procedure details panel Denis Rodriguez Work Phone: Start: 06-07-2020 Basic metabolic pane l calcium total Denis Rodriguez Work Phone: Start: 01-29-2016 End: 01-30-2016 Referral to respiratory physician Darryn Kessler Work Phone: Start: 09-10-2015 End: 12-11-2015 Follow Up Appt 3 months Monalisa Cardona er [employer] Work Phone: Start: 09-01-2015 End: 12-10-2015 Pulmonary Function Test - complete Darryn Kessler Work Phone: Start: 09-01-2015 End: 12-10-2015 Pulmonary stress test/simple Darryn Kessler Work Phone: Start: 08-05-2015 End: 08-07-2015 Bacteria sputum culture Monalisa hernandes [employer] Work Phone: Start: 03-12-2015 End: 03-12-2015 Documentation [...] - Td) DTaP/Tdap/Td vaccine (3 - Td) [place], [place] Start: 01-07-[address] [facility] Start: 08-11-2024 Patient discharge [facility] Start: 08-10-2024 Admission procedure [facility] Start: 08-09-2024 Following clinical p athway protocol [facility] Start: 08-09-2024 Ambulation without limitation [facility] Start: 08-09-2024 Assessment of risk o f venous thromboembolism [facility] Start: 08-09-2024 Inhalation therapy procedure [facility] Start: 08-09-2024 Insertion of cathete r into peripheral vein [facility] Start: 08-09-2024 Providing care accor ding to [facility] Start: 08-09-2024 Referral to gastroen terology service [facility] Start: 08-09-[address] [facility] Start: 08-09-2024 Verification routine [facility] Start: 08-09-2024 Admission procedure [facility] Start: 08-09-2024 Hospital admission, emergency, from emergency room, medical nature [facility] Start: 08-09-[address] [facility] Start: 08-09-2024 Patient referral to dietitian [facility] Start: 08-09-[address] [facility] Start: 07-28-2024 Patient discharge [facility] Start: 07-28-2024 Oxygen therapy [facility] Start: 07-27-2024 End: 07-27-2024 [facility] Start: 07-27-2024 Care regimes management [facility] Start: 07-27-2024 Notification of physician [facility] Start: 07-27-2024 Application of inter mittent pneumatic compression device [facility] Start: 07-27-2024 Following clinical p athway protocol [facility] Start: 07-27-2024 Assessment of risk o f venous thromboembolism [facility] Start: 07-27-2024 Incentive spirometry [facility] Start: 07-27-2024 Insertion of cathete r into peripheral vein [facility] Start: 07-27-2024 Measuring intake and output [facility] Start: 07-27-2024 Providing care accor ding to [facility] Start: 07-27-2024 Provision of activit y privileges [facility] Start: 07-27-2024 Referral to service [facility] Start: 07-27-[address] [facility] Start: 07-27-2024 Verification routine [facility] Start: 07-27-2024 Admission procedure [facility] Start: 07-27-2024 Hospital admission, emergency, from emergency room, medical nature [facility] Start: 07-27-2024 Gas panel - Venous blood [facility] Start: 07-27-[address] [facility] Start: 07-27-2024 Inhalation therapy procedure [facility] Start: 07-27-2024 Patient referral to dietitian [facility] Start: 07-18-2024 Colonoscopy w/biopsy single/multiple [facility] Start: 07-18-2024 Electrocardiographic procedure [facility] Start: 07-18-2024 Patient discharge [facility] Start: 04-30-[address] [facility] Start: 04-11-[address] [facility] Start: 12-01-2022 Patient referral [facility] Work Phone: Start: 11-30-2022 End: 11-30-2022 Electrocardiographic procedure [facility] Start: 11-30-2022 Plain chest X-ray Chest 1 View (Portable) [facility] Start: 11-30-[address] [facility] Start: 11-30-2022 Blood chemistry [facility] Start: 11-30-2022 Brain natriuretic pe ptide measurement [facility] Start: 11-30-[address] [facility] Start: 11-27-2022 Cardiac rehabilitati on - phase 1 [facility] Start: 11-27-2022 Cardiac rehabilitati on - phase 2 [facility] Start: 11-27-2022 Patient discharge [facility] Start: 11-17-2022 Blood chemistry [facility] Start: 11-16-2022 Patient discharge [facility] Start: 11-16-2022 Catheterization of left heart [facility] Start: 11-15-[address] [facility] Start: 11-15-[address] [facility] Start: 11-14-2022 Referral to solar site assessment specialist [facility] Start: 11-14-2022 Following clinical p athway protocol [facility] Start: 11-14-2022 Assessment of risk o f venous thromboembolism [facility] Start: 11-14-2022 Incentive spirometry [facility] Start: 11-14-2022 Inhalation therapy procedure [facility] Start: 11-14-2022 Insertion of cathete r into peripheral vein [facility] Start: 11-14-2022 Introduction of urin festus catheter [facility] Start: 11-14-2022 Measuring intake and output [facility] Start: 11-14-2022 Providing care accor ding to standard [facility] Start: 11-14-2022 Provision of activit y privileges [facility] Start: 11-14-2022 Referral to second vp hr assessment [facility] Start: 11-14-2022 Referral to service [facility] Start: 11-14-2022 Tobacco use cessatio n education [facility] Start: 11-14-[address] [facility] Start: 11-14-2022 Verification routine [facility] Start: 11-14-2022 Electrocardiographic procedure [facility] Start: 11-14-2022 Admission procedure [facility] Start: 11-14-[address] [facility] Start: 11-01-[address] [facility] Start: 08-08-2022 End: 08-08-2022 Blood culture [facility] Start: 08-08-2022 End: 08-08-2022 [facility] Start: 08-03-2022 Blood chemistry [facility] Start: 08-02-2022 Blood chemistry [facility] Start: 08-01-2022 Blood chemistry [facility] Start: 07-31-2022 Simple repair scalp/neck/ax/genit/trunk 2.5cm/< [facility] Start: 07-31-2022 Blood chemistry [facility] Start: 07-30-2022 Blood chemistry [facility] Start: 07-30-[address] [facility] Start: 07-29-2022 Blood chemistry [facility] Start: 07-29-[address] [facility] Start: 07-28-2022 Blood chemistry [facility] Start: 07-28-[address] [facility] Start: 07-27-2022 Blood chemistry [facility] Start: 07-27-[address] [facility] Start: 07-26-2022 Patient discharge [facility] Start: 07-26-[address] [facility] Start: 07-25-2022 Admission procedure [facility] Start: 07-25-2022 Incentive spirometry [facility] Start: 07-25-2022 Assessment of risk o f venous thromboembolism [facility] Start: 07-25-2022 Catheterization of vein [facility] Start: 07-25-2022 Insertion of cathete r into peripheral vein [facility] Start: 07-25-2022 Providing care accor ding to standard [facility] Start: 07-25-2022 Referral to service [facility] Start: 07-25-2022 End: 07-25-2022 [facility] Start: 07-25-2022 Following clinical p athway protocol [facility] Start: 07-25-2022 Inhalation therapy procedure [facility] Start: 05-03-2022 ADVANCE DIRECTIVE DISCUSSION A DVANCE DIRECTIVE DISCUSSION [facility] Start: 05-03-2022 DEPRESSION ASSESSMENT DEPRESSION ASS ESSMENT [facility] Start: 03-03-2022 DIABETES SCREEN DIABETES SCREEN [facility] Start: 06-07-2021 Creatinine measurement Creatinine mo nitoring [place], [place] Start: 06-07-2021 Potassium monitoring Potassium monit oring [place], [place] Start: 12-24-2020 COVID-19 VACCINE (5 - Booster for Moderna series) COVID-19 VACCINE (5 - Booster for Moderna series) [facility] Start: 06-17-2020 End: 06-17-2020 Office Visit 06/17/2020 Office Visit Cardiology Zulma Martini, CENTRAL STERILE TECHNICIAN - [employer] [address] [place] [address] [phone] [facility] Start: 06-07-2020 End: 06-07-2021 Basic metabolic 2000 panel Basic Metabolic Panel Lab Routine S/P drug eluting coronary stent placement 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 Expected: 06/07/2020, Expires: 06/07/2021 [place] Comment on above: Expected: 06/07/2020 , Expires: 06/07/2021 Start: 04-29-2020 Shingles Vaccine (2 of 2) Mari gles Vaccine (2 of 2) [place], [place] Start: 01-23-2018 Urine microalbumin profile DTA P,TDAP,TD (3 - Tdap) [facility] Start: 07-01-2017 End: 12-16-2016 Pulmonary Function Test - complete Pulmonary Function Test - complete [facility] Work Phone: Start: 07-01-2017 End: 12-16-2016 Pulmonary stress test/simple Pulmonary stress testing; simple (eg, 6-minute walk) [facility] Work Phone: Start: 06-21-2017 End: 06-21-2017 Appointment [facility] Work Phone: Start: 12-16-2016 End: 12-16-2016 Appointment Appointment [facility] Work Phone: Start: 12-16-2016 End: 12-16-2016 [facility] Work Phone: Start: 12-16-2016 End: 12-16-2016 Follow Up Appt 6 months Follow Up Appt 6 months [facility] Work Phone: Start: 08-28-2016 End: 08-28-2016 Appointment Appointment [facility] Work Phone: Start: 06-10-2016 End: 06-10-2016 LAYNE TILLMAN [facility] Work Phone: Start: 06-10-2016 End: 06-10-2016 Follow Up Appt 6 months Follow Up Appt 6 months [facility] Work Phone: Start: 04-09-2016 Hepatitis B surface antibody level LDL CHOLESTEROL [facility] Start: 01-29-2016 End: 02-03-2016 Pulmonary Rehab Pulmonary [facility], [address], [place], [address] [facility] Work Phone: Start: 12-11-2015 End: 12-11-2015 [facility] Work Phone: Start: 12-11-2015 End: 12-11-2015 Follow Up Appt 6 months Follow Up Appt 6 months [facility] Phone: Start: 09-10-2015 End: 12-11-2015 Follow Up Appt 3 months Follow Up Appt 3 months [facility] Phone: Start: 09-01-2015 End: 12-10-2015 Pulmonary Function Test - complete Pulmonary Function Test - complete [facility] Phone: Start: 09-01-2015 End: 12-10-2015 Pulmonary stress test/simple Pulmonary stress testing; simple (eg, 6-minute walk) [facility] Phone: Start: 08-05-2015 End: 08-07-2015 Bacteria sputum culture *CUSP - Culture Sputum [facility] Phone: Start: 03-12-2015 End: 12-10-2015 Follow Up Appt 6 months Follow Up Appt 6 months [facility] Phone: Start: 09-11-2014 End: 12-10-2015 Follow Up Appt 6 months Follow Up Appt 6 months [facility] Phone: Start: 06-12-2014 End: 12-10-2015 Follow Up Appt 3 months Follow Up Appt 3 months [facility] Phone: Start: 06-12-2014 End: 12-10-2015 Pulmonary Fuction Test - complete Pulmonary Fuction Test - complete [facility] Phone: Start: 06-12-2014 End: 12-10-2015 Pulmonary stress test/simple Pulmonary stress testing; simple (eg, 6-minute walk) [facility] Phone: Start: 05-10-2014 End: 05-10-2014 Diagnostic colonoscopy Colonoscopy [facility] Phone: Start: 08-03-2010 PNEUMOCOCCAL: 65+ (2 - PCV) PN EUMOCOCCAL: 65+ (2 - PCV) [facility] Start: 1994 SHINGRIX VACCINE (1 of 2) MARI GRIX VACCINE (1 of 2) [facility] Start: 1962 ANNUAL PCP TEAM CISCO ADMINISTRATOR BROCK DISEASE VISIT ANNUAL PCP TEAM CHRONIC DISEASE VISIT [facility] Start: 1962 BP CONTROLLED (<130/80) BP CON TROLLED (<130/80) [facility] Start: 1962 HEPATITIS C SCREENING HEPATITIS C SC ANATOLIY [facility] Start: 1962 SPIROMETRY SPIROMETRY [facility] Start: 1960 COVID-19 Vaccine (1 of 2) COVI D-19 Vaccine (1 of 2) [facility], [place] Start: 1944 Hepatitis C screening Hepatitis C sc basilio [place], [place] Anion gap in Serum or Plasma [facility] Anion gap measurement [facility] Bacteria identified in Blood by Culture Blood Culture [facility] Bacteria identified in Urine by Culture Urine Culture [facility] Blood chemistry [facility] BUN/Creatinine ratio [facility] BUN/Creatinine ratio [facility] Calcium [Mass/volume ] in Serum or Plasma [facility] Calcium [Mass/volume ] in Serum or Plasma [facility] Carbon dioxide, tota l [Moles/volume] in Central venous blood [facility] Carbon dioxide, tota l [Moles/volume] in Serum or Plasma [facility] Chloride [Moles/volu me] in Serum or Plasma [facility] Colonoscopy [facility] Continuous pulse oximetry [facility] Creatinine [Mass/vol ume] in Serum or Plasma [facility] Creatinine [Moles/vo lume] in Serum or Plasma [facility] CT Chest WO contrast [facility] CTA Abdominal vessel s WO and W contrast IV [facility] Work Phone: Doppler ultrasonogra phy of aorta [facility] Doppler ultrasonogra phy of aorta [facility] EKG 12 lead [facility] [place] [facility] [place] Comment on above: Daily until disconti nued starting 06/07/2020, 1 completed Glucose [Mass/volume ] in Serum or Plasma [facility] Glucose [Mass/volume ] in Serum or Plasma [facility] Measurement of renal function [facility] Measurement of renal function [facility] Oxygen therapy [[facility] Data Set] Initiate Oxygen Therapy Protocol Respiratory Care Routine Daily until discontinued starting 06/07/2020 [facility] [place] Comment on above: Daily until disconti nued starting 06/07/2020 Patient Education [facility] Work Phone: Patient referral [facility] Work Phone: Potassium [Moles/vol ume] in Serum or Plasma [facility] Potassium measurement [facility] Procedure [facility] Work Phone: Serum chloride measurement [facility] Sodium [Moles/volume ] in Serum or Plasma [facility] Sodium measurement [facility] Urea nitrogen [Mass/ volume] in Serum or Plasma [facility] Urea nitrogen [Mass/ volume] in Serum or Plasma [facility] US Carotid arteries [facility] Immunizations Immunization Date Immunization Notes Care Provider [facility] 07-31-2022 tetanus toxoid, redu debora diphtheria toxoid, and acellular pertussis vaccine, adsorbed Dr. Spenser Sanchez Work Phone: [facility] 03-06-2022 influenza, injectabl e, quadrivalent, preservative free Dr. Spenser Sanchez Work Phone: [facility] 03-06-2022 influenza, seasonal, injectable Dr. Spenser Sanchez Work Phone: [facility] 03-25-2021 influenza, injectabl e, quadrivalent, preservative free Dr. Spenser Sanchez MD Work Phone: [facility] 03-25-[address] Spenser Sanchez MD Work Phone: [facility] 10-29-2020 Covid (Moderna) Dr. Jodi Sanchez Work Phone: [facility] 10-01-2020 Covid (Moderna) Dr. Jodi Sanchez Work Phone: [facility] 09-11-2020 Covid (Moderna) Dr. Jodi Sanchez MD Work Phone: [facility] 08-14-2020 Covid (Moderna) Dr. Jodi Sanchez MD Work Phone: [facility] 04-02-[address] Spenser Sanchez Work Phone: [facility] 03-04-2020 Influenza, injectabl e, Madin Ariadna Canine Kidney, preservative free, quadrivalent Dr. Spenser Sanchez MD Work Phone: [facility] 03-04-[address] Spenser Sanchez MD Work Phone: [facility] 03-13-2019 influenza, injectabl e, quadrivalent, preservative free Dr. Spenser Sanchez Work Phone: [facility] 03-13-2019 influenza, seasonal, injectable Dr. Spenser Sanchez Work Phone: [facility] 03-07-2019 Influenza, injectabl e, Madin Ariadna Canine Kidney, preservative free, quadrivalent Dr. Spenser Sanchez MD Work Phone: [facility] 01-30-2019 pneumococcal polysaccharide vaccine, [address] Spenser Sanchez MD Work Phone: [facility] 01-30-2019 tetanus toxoid, redu debora diphtheria toxoid, and acellular pertussis vaccine, adsorbed Dr. Spenser Sanchez MD Work Phone: [facility] 03-20-2015 influenza, injectabl e, quadrivalent, preservative free Dr. Spenser Sanchez MD Work Phone: [facility] 02-05-2015 pneumococcal conjuga te vaccine, [address] Spenser Sanchez MD Work Phone: [facility] 03-06-2014 influenza, injectabl e, quadrivalent, preservative free Dr. Spenser Sanchez MD Work Phone: [facility] 05-05-2013 influenza virus vacc ine, unspecified formulation Uriah Mcarthur PA-C Work Phone: [facility] 02-05-2013 pneumococcal conjuga te vaccine, [address] Spenser Sanchez MD Work Phone: [facility] 03-29-2012 influenza virus vacc ine, unspecified formulation Uriah Mcarthur PA-C Work Phone: [facility] Work Phone: 04-30-2011 influenza virus vacc ine, unspecified formulation Uriah Mcarthur PA-C Work Phone: [facility] 03-25-2010 influenza virus vacc ine, unspecified formulation Uriah Mcarthur PA-C Work Phone: [facility] Work Phone: 08-03-2009 pneumococcal polysaccharide vaccine, 23 valent Uriah Mcarthur PA-C Work Phone: [facility] 02-08-2009 influenza virus vacc ine, unspecified formulation Uriah Mcarthur PA-C Work Phone: [facility] Work Phone: 03-09-2008 influenza virus vacc ine, unspecified formulation Uriah Mcarthur PA-C Work Phone: [facility] Work Phone: 01-24-2008 tetanus and diphther ia toxoids, adsorbed, preservative free, for adult use (2 Lf of tetanus toxoid and 2 Lf of diphtheria toxoid) Uriah Mcarthur PA-C Work Phone: [facility] 04-04-2007 influenza virus vacc ine, unspecified formulation Uriah Mcarthur PA-C Work Phone: [facility] Work Phone: 03-01-2006 influenza virus vacc ine, unspecified formulation Uriah Mcarthur PA-C Work Phone: [facility] 03-12-2005 influenza virus vacc ine, unspecified formulation Uriah Mcarthur PA-C Work Phone: [facility] Work Phone: 02-01-2003 pneumococcal polysaccharide vaccine, 23 valent Uriah Calvomili HINES-Agapito Work Phone: [facility] Work Phone: 05-07-1997 diphtheria and tetan us toxoids, adsorbed for pediatric use Uriah Calvomili HINES-Agapito Work Phone: [facility] Work Phone: Payers Date Payer Category Payer Self-pay [id number] 2015 Private Health Insurance [id number] 2015 Private Health Insurance HUMANA HUMANA MEDICARE SUPPLEMENT [id number] 2015-Present [phone] [address] [address] [place] [address] Indemnity [id number] 2009 Medicare [id number] 2009 Medicare MEDICARE MEDICAR E A AND B [id number] 2009-Present [phone] [address] [address] [place] [address] Medicare [id number] Unknown [id number] 2.16.840.1.730482.3.579 .2.462 Unknown [id number] 2.16.840.1.181077.3.579 .2.462 Unknown [id number] 2.16.840.1.400792.3.579 .2.462 Unknown [id number] 2.16.840.1.134554.3.579 .2.462 Unknown [id number] 2.16.840.1.683312.3.579 .2.462 Unknown [id number] 2.16.840.1.714745.3.579 .2.462 Unknown [id number] 2.16.840.1.040452.3.579 .2.462 Unknown [id number] 2.16.840.1.208995.3.579 .2.462 Unknown [id number] 2.16.840.1.511144.3.579 .2.462 Unknown [id number] 2.16.840.1.355519.3.579 .2.462 Unknown [id number] 2.16.840.1.490076.3.579 .2.462 Unknown [id number] 2.16.840.1.067675.3.579 .2.462 Unknown [id number] 2.16.840.1.703955.3.579 .2.462 Unknown [id number] 2.16.840.1.490872.3.579 .2.462 Unknown [id number] 2.16.840.1.721528.3.579 .2.462 Unknown [id number] 2.16.840.1.744452.3.579 .2.462 Unknown [id number] 2.16.840.1.930672.3.579 .2.462 Unknown [id number] 2.16.840.1.120656.3.579 .2.462 Unknown [id number] 2.16.840.1.275858.3.579 .2.462 Unknown [id number] 2.16.840.1.952606.3.579 .2.462 Unknown [id number] 2.16.840.1.050034.3.579 .2.462 Unknown [id number] 2.16.840.1.628317.3.579 .2.462 Unknown [id number] 2.16.840.1.179282.3.579 .2.462 Unknown [id number] 2.16.840.1.967586.3.579 .2.462 Unknown [id number] 2.16.840.1.736503.3.579 .2.462 Unknown [id number] 2.16.840.1.146469.3.579 .2.462 Unknown [id number] 2.16840.1.393441.3.579 .2.462 Unknown [id number] 2.16.840.1.760372.3.579 .2.462 Unknown [id number] 2.840.1.976404.3.579 .2.462 Unknown [id number] 2.840.1.075791.3.579 .2.462 Unknown [id number] 2.840.1.230782.3.579 .2.462 Unknown [id number] 2.840.1.545695.3.579 .2.462 Unknown [id number] 2.840.1.626687.3.579 .2.462 Unknown [id number] 2.840.1.621574.3.579 .2.462 Unknown [id number] 2.840.1.737210.3.579 .2.462 Unknown [id number] 2.840.1.554082.3.579 .2.462 Unknown [id number] 2.840.1.978458.3.579 .2.462 Unknown [id number] 2.840.1.688528.3.579 .2.462 Unknown [id number] 2.16.840.1.301017.3.579 .2.462 Unknown [id number] 2.840.1.115041.3.579 .2.462 Unknown [id number] 2.840.1.055572.3.579 .2.462 Unknown [id number] 2.16.840.1.743351.3.579 .2.462 Unknown [id number] 2.16.840.1.274814.3.579 .2.462 Unknown [id number] 2.16.840.1.372521.3.579 .2.462 Social History Date Type Detail Facility Start: 05-31-2020 End: 01-07-2025 Tobacco smoking status NHIS Former smoker [facility] Work Phone: End: 01-27-2001 History of tobacco use Current smoker [place], [place] Start: 05-31-2020 End: 07-10-2022 Cigarettes smoked current (pack per day) - Reported [place], [place] Start: 05-31-2020 End: 07-10-2022 Tobacco use and exposure Never used [place], [place] Start: 05-31-2020 Alcohol intake Ex-drinker (finding) [place] Start: 05-27-2020 History SDOH Alcohol Frequency 1 [place] Start: 05-31-2020 History SDOH Alcohol Std Drinks 99 [place], [place] Start: 1945 Sex Assigned At Not on file [place] Exposure to SARS-CoV -2 (event) Not sure [place] Start: 12-29-2021 End: 08-03-2023 Tobacco smoking status OHIS Unknown if ever smoked [facility] Start: 08-31-[address] [facility] Start: 08-31-[address] [facility] Start: 06-29-2019 Spouse/ Signif icant Other [facility] Start: 08-31-2020 Non-smoker [facility] Start: 1945 Sex Assigned At Male [facility] End: 01-27-2001 History of tobacco use Cigarette Smoker [facility] Work Phone: Start: 07-10-2022 Alcohol intake Current drinke r of alcohol (finding) [facility] Start: 03-03-2019 Alcohol Comment 1 shot at nigh t before bed [facility] Start: 07-18-2024 End: 08-11-2024 Sex Male (finding) [facility] Sex Male [facility] Medical Equipment Procedure Code Equipment Code Equipment Origin al Text Equipment Identifier Dates Repair, hernia, inguinal, with mesh insertion ([id number]) [id number] FDA Start: 06-19-2021 Wire Felicity .045in Stainless Steel 5.5in Fixation Trocar Smooth Guide - [id number] Start: 04-07-2019 [id number] FDA Start: 11-27-2022 Goals Date Patient Goal Desired Activity /State Functional Status Date Assessment Result Facility 08-11-2024 Functional status Up ad teri [facility] Work Phone: 07-28-2024 Functional status Standby Assist [facility] Work Phone: 11-16-2022 Functional status Up ad teri [facility] Work Phone: 07-26-2022 Functional status Ambulates;Bathroom Priv ilege [facility] Work Phone: Mental Status Date Assessment Result Facility 01-07-2025 Cognitive function Level Of Cons ciousness Awake;Alert;Appropriate;Follow s Commands [facility] Work Phone: 08-11-2024 Cognitive function Voice/Name [facility] Work Phone: 07-28-2024 Cognitive function Voice/Name [facility] Work Phone: 07-18-2024 Cognitive function Awake;Alert;Appropriat e [facility] Work Phone: 07-18-2024 Cognitive function Voice/Name [facility] Work Phone: 11-30-2022 Cognitive function Level Of Cons ciousness Awake;Alert;Appropriate [facility] Work Phone: 11-16-2022 Cognitive function Appropriate;Cooperativ e [facility] Work Phone: 11-15-2022 Cognitive function Voice/Name [facility] Work Phone: 11-14-2022 Cognitive function Voice/Name [facility] Work Phone: 11-01-2022 Cognitive function Awake;Alert;[facility] Work Phone: 08-08-2022 Cognitive function Awake;Alert;[facility] Work Phone: 07-26-2022 Cognitive function Appropriate;Cooperativ [facility] Work Phone: Clinical Notes 09-09-2015 to 01-08-2025 Note Date & Type Note Facility 01-08-2025 Evaluation note Diagnosis Onset Date Resolution Burn of finger of left hand, second degree acute January 08, 025 3:33pm [facility] Work Phone: 1(459) 962-263909-08-2025 [facility] [address] , [address] [place] [address] OFFICE VISIT Date of Service: 01/08/25 MR#: [id number] Acct: [id number] Name: BETTE CLEMENTS Rep #: [id number] : 1945 Provider: FLORA Becerril Age/Sex: 79/M Location[place] [facility] Status: Signed Intake Vital Signs 01/07/25 09:34 01/08/25 15:38 Height 5 ft 7 in 5 ft 7 in Weight: 136 lb BMI 21.2 BP 152/70 H Blood Pressure Location Lt brachial Position Sitting Pulse 99 Pulse Source Monitor Temp 97.7 F L Temp Source Oral Pulse Oximetry (%) 98 Oxygen Delivery Method room air Intake Visit Reasons: BURN ON L MIDDLE FINGER Chief Complaint: Burn on finger Accompanied by: Self Allergies aspirin Allergy (Verified 01/07/25 09:36) Shortness of breath adhesive Adverse Reaction (Verified 01/07/25 09:36) Rash amoxicillin trihydrate (From Augmentin) Adverse Reaction (Verified 01/07/25 09:36) Other atorvastatin calcium (From Lipitor) Adverse Reaction (Verified 01/07/25 09:36) leg cramps isopropyl alcohol Adverse Reaction (Verified 01/07/25 09:36) Rash metoprolol succinate (From Toprol XL) Adverse Reaction (Verified 01/07/25 09:36) Rash naproxen (From Naprosyn) Adverse Reaction (Verified 01/07/25 09:36) Shortness of breath paroxetine HCl (From Paxil) Adverse Reaction (Verified 01/07/25 09:36) Unknown potassium clavulanate (From Augmentin) Adverse Reaction (Verified 01/07/25 09:36) tingling all over propoxyphene HCl (From Darvon) Adverse Reaction (Verified 01/07/25 09:36) Unknown sertraline HCl (From Zoloft) Adverse Reaction (Verified 01/07/25 09:36) Unknown simvastatin (From Zocor) Adverse Reaction (Verified 01/07/25 09:36) Unknown tiotropium bromide (From Spiriva with HandiHaler) Adverse Reaction (Verified 01/07/25 09:36) Other Medications ?Medication ?Instructions ?Recorded ?Confirmed ?Type Disability Placard #1 ea 02/11/23 09/27/24 Rx furosemide 40 mg tablet 40 mg PO DAILY PRN edema #30 tabs 12/13/23 01/08/25 Rx clopidogrel 75 mg tablet 75 mg PO DAILY anti platelet #90 02/10/24 01/08/25 Rx tabs verapamil 240 mg tablet,extended 240 mg PO QHS heart # 90 tabs 05/05/24 01/08/25 Rx release tamsulosin 0.4 mg capsule 0.4 mg PO BID prostate #180 caps 05/22/24 01/08/25 Rx budesonide 0.5 mg/2 mL suspension 0.5 mg inhalation Q1 2H PRN 10/16/24 01/08/25 History for nebulization breathing isosorbide mononitrate 30 mg 30 mg PO QHS heart 01/08/25 History tablet,extended release 24 hr formoterol fumarate 20 mcg/2 mL 2 ml inhalation Q12H # 120 mL 10/26/24 01/08/25 Rx solution for nebulization (Perforomist) prednisone 10 mg tablet 10 mg PO DAILY #58 TABLETS 0 01/07/25 01/08/25 Rx doxycycline monohydrate 100 mg 100 mg PO BID #20 caps 01/08/25 01/08/25 Rx capsule Have you fallen in the past year?: No Nurse's Note: Making white and eggs a couple days ago, left middle finger touched grease, now burned. 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 Stopped 2021 substance use type: marijuana caffeine: Yes Type: coffee Number of servings: 4 what type of physical activity do you participate in: weight training and otherdetails: pulmonary rehab frequency: 3-4 times per week additional social history: Has had blood transfusion HPI HPI Chief Complaint: Burn on finger Details: BETTE CLEMENTS, is a 79 M who presents to the office today for evaluation of dorsalleft middle finger partial-thickness burn with hot grease while cooking breakfast the morning of 01/06/2025. Patient noted putting Neosporin ointment andBand-Aids over the top though the blister has since popped and localized erythema and warmth and tenderness appreciated by patient. No complaints of fever, chills, sweats, lightheadedness/dizziness, nausea/vomiting. [id number]. PMH NC. Tdap today so states. No other associated symptoms and no other alleviating/aggravating factors. ROS Const Constitutional: No other (As above) Exam Const General: cooperative, healthy appearing and no acute distress Nutritional Appearance: average body habitus Orientation: alert and awake Resp Effort & Inspection: normal respiratory effort and able to speak in complete sentences Cardio Rate: regular rate Pulses: radial pulses present Skin General: no rashes or lesions noted Other: Dorsal LMF approximately 2 cm diameter dermal depth burn with erythematous base (blister skin debrided by patient he so admits). FAROM DIPJ, PIPJ, and MCPJ same with positive cap refill distally intact and unguarded director of enterprise applications strength. Neuro General: patient alert and patient awake Cognition: normal cognition Speech: speech normal Extrem General: normal to inspection Psych Appearance: grossly normal Mental Status: mental status grossly normal Mood: congruent mood Affect: normal affect Speech and Movement: speech and movement normal Attitude: cooperative Coding Level of Care Code Off vis,est,level 3 Diagnoses Burn of finger of left hand, second degree T23.222A Assessment and Plan Assessment and Plan (1) Burn of finger of left hand, second degree: Status: Acute Plan: Doxycycline as prescribed today. Supportive measures/skin care measures as instructed today. Follow-up with PCP in 3 to 5 days should symptoms not improved, sooner should symptoms only worsen or any other concerns develop. Patient states acknowledging understanding all the above. This note was generated with [employer] dictation software. It may contain incorrectwords, spelling, and punctuation that were not noted in checking the note beforesigning. Medications: New doxycycline monohydrate 100 mg PO BID 20 caps 0RF Clinical Quality Measures Falls Risk Screening/Assistive Devices Have you fallen in the past year?: No 01/08/25 1618 s FLORA HINES> Date _ Phi HINES Cosigner Signature: Date (if applicable) CC: ~ [facility]09-08-2025 Progress note Author Phi Baez [facility] Services Note Date/Time January 08, 2025 4:18pm [facility] [address], [address] [place] [address] OFFICE VISIT Date of Service: 01/08/25 MR#: [id number] Acct: [id number] Name: BETTE CLEMENTS Rep #: [id number] : 1945 Provider: FLORA Becerril Age/Sex: 79/M Location[place] [facility] Status: Signed Intake Vital Signs 01/07/25 09:34 01/08/25 15:38 Height 5 ft 7 in 5 ft 7 in Weight: 136 lb BMI 21.2 BP 152/70 H Blood Pressure Location Lt brachial Position Sitting Pulse 99 Pulse Source Monitor Temp 97.7 F L Temp Source Oral Pulse Oximetry (%) 98 Oxygen Delivery Method room air Intake Visit Reasons: BURN ON L MIDDLE FINGER Chief Complaint: Burn on finger Accompanied by: Self Allergies aspirin Allergy (Verified 01/07/25 09:36) Shortness of breath adhesive Adverse Reaction (Verified 01/07/25 09:36) Rash amoxicillin trihydrate (From Augmentin) Adverse Reaction (Verified 01/07/25 09:36) Other atorvastatin calcium (From Lipitor) Adverse Reaction (Verified 01/07/25 09:36) leg cramps isopropyl alcohol Adverse Reaction (Verified 01/07/25 09:36) Rash metoprolol succinate (From Toprol XL) Adverse Reaction (Verified 01/07/25 09:36) Rash naproxen (From Naprosyn) Adverse Reaction (Verified 01/07/25 09:36) Shortness of breath paroxetine HCl (From Paxil) Adverse Reaction (Verified 01/07/25 09:36) Unknown potassium clavulanate (From Augmentin) Adverse Reaction (Verified 01/07/25 09:36) tingling all over propoxyphene HCl (From Darvon) Adverse Reaction (Verified 01/07/25 09:36) Unknown sertraline HCl (From Zoloft) Adverse Reaction (Verified 01/07/25 09:36) Unknown simvastatin (From Zocor) Adverse Reaction (Verified 01/07/25 09:36) Unknown tiotropium bromide (From Spiriva with HandiHaler) Adverse Reaction (Verified 01/07/25 09:36) Other Medications ?Medication ?Instructions ?Recorded ?Confirmed ?Type Disability Placard #1 ea 02/11/23 09/27/24 Rx furosemide 40 mg tablet 40 mg PO DAILY PRN edema #30 tabs 12/13/23 01/08/25 Rx clopidogrel 75 mg tablet 75 mg PO DAILY anti platelet #90 02/10/24 01/08/25 Rx tabs verapamil 240 mg tablet,extended 240 mg PO QHS heart # 90 tabs 05/05/24 01/08/25 Rx release tamsulosin 0.4 mg capsule 0.4 mg PO BID prostate #180 caps 05/22/24 01/08/25 Rx budesonide 0.5 mg/2 mL suspension 0.5 mg inhalation Q1 2H PRN 10/16/24 01/08/25 History for nebulization breathing isosorbide mononitrate 30 mg 30 mg PO QHS heart 01/08/25 History tablet,extended release 24 hr formoterol fumarate 20 mcg/2 mL 2 ml inhalation Q12H # 120 mL 10/26/24 01/08/25 Rx solution for nebulization (Perforomist) prednisone 10 mg tablet 10 mg PO DAILY #58 TABLETS 0 01/07/25 01/08/25 Rx doxycycline monohydrate 100 mg 100 mg PO BID #20 caps 01/08/25 01/08/25 Rx capsule Have you fallen in the past year?: No Nurse's Note: Making white and eggs a couple days ago, left middle finger touched grease, now burned. 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 Stopped 2021 substance use type: marijuana caffeine: Yes Type: coffee Number of servings: 4 what type of physical activity do you participate in: weight training and otherdetails: pulmonary rehab frequency: 3-4 times per week additional social history: Has had blood transfusion HPI HPI Chief Complaint: Burn on finger Details: BETTE CLEMENTS, is a 79 M who presents to the office today for evaluation of dorsalleft middle finger partial-thickness burn with hot grease while cooking breakfast the morning of 01/06/2025. Patient noted putting Neosporin ointment andBand-Aids over the top though the blister has since popped and localized erythema and warmth and tenderness appreciated by patient. No complaints of fever, chills, sweats, lightheadedness/dizziness, nausea/vomiting. [id number]. PMH NC. Tdap today so states. No other associated symptoms and no other alleviating/aggravating factors. ROS Const Constitutional: No other (As above) Exam Const General: cooperative, healthy appearing and no acute distress Nutritional Appearance: average body habitus Orientation: alert and awake Resp Effort & Inspection: normal respiratory effort and able to speak in complete sentences Cardio Rate: regular rate Pulses: radial pulses present Skin General: no rashes or lesions noted Other: Dorsal LMF approximately 2 cm diameter dermal depth burn with erythematous base (blister skin debrided by patient he so admits). FAROM DIPJ, PIPJ, and MCPJ same with positive cap refill distally intact and unguarded director of enterprise applications strength. Neuro General: patient alert and patient awake Cognition: normal cognition Speech: speech normal Extrem General: normal to inspection Psych Appearance: grossly normal Mental Status: mental status grossly normal Mood: congruent mood Affect: normal affect Speech and Movement: speech and movement normal Attitude: cooperative Coding Level of Care Code Off vis,est,level 3 Diagnoses Burn of finger of left hand, second degree T23.222A Assessment and Plan Assessment and Plan (1) Burn of finger of left hand, second degree: Status: Acute Plan: Doxycycline as prescribed today. Supportive measures/skin care measures as instructed today. Follow-up with PCP in 3 to 5 days should symptoms not improved, sooner should symptoms only worsen or any other concerns develop. Patient states acknowledging understanding all the above. This note was generated with [employer] software. It may contain incorrectwords, spelling, and punctuation that were not noted in checking the note beforesigning. Medications: New doxycycline monohydrate 100 mg PO BID 20 caps 0RF Clinical Quality Measures Falls Risk Screening/Assistive Devices Have you fallen in the past year?: No 01/08/25 1618 <Electronically signed by Phi HINES> Date _ Phi HINES Cosigner Signature: Date (if applicable) CC: ~ [place] [employer] Work Phone: 1(313) 220-730409-07-2025 Discharge summary [facility] Medical Records Department [address] [place] [address] Emergency Department Summary 01/07/25 MR#: [id number] Acct: [id number] Name: BETTE CLEMENTS Rep #:[id number] : 1945 79 From: Barney Eli MD PCP: CODY Burk Status:PRE ER Location: ED HPI History of Present Illness Chief Complaint: Other, Pain/Inj Detail of Chief Complaint: Arthralgias Informant: patient Narrative Narrative: 79-year-old male has a longstanding history of polyarthritis, he states has beenworse for the past 3 weeks or so, he states his PCP put him on a prednisone taper that worked really well until he ran out 2 days ago now he is in a lot of severe pain again. The most affected joints are as follows: Left shoulder, right wrist, right hip, both knees, both ankles. He denies any systemic symptomssuch as fevers, chills, redness, warmth, swelling, or dyspnea. He has a historyof COPD, that has been stablerecently. He denies injury. He states it is muchworse in the mornings, and much better in the evening even if he is not on the prednisone. 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 Old inferior [...] Disability Placard #1 ea 02/11/23 Unknown Rx furosemide 40 mg tablet 40 mg PO [...] budesonide 0.5 mg/2 mL suspension 0.5 mg inhalation Q1 2H PRN 10/16/24 Unknown History for nebulization breathing isosorbide mononitrate 30 mg 30 mg PO QHS heart Unknown History tablet,extended release 24 hr formoterol fumarate 20 mcg/2 mL 2 ml inhalation Q12H # 120 mL 10/26/24 Unknown Rx solution for nebulization (Perforomist) tiotropium 2.5 mcg-olodaterol 2.5 2 inh inhalation GLENIS LY #4 grams 11/08/24 Unknown Rx mcg/actuation mist for inhalation (Stiolto Respimat) meloxicam 7.5 mg tablet 7.5 mg PO DAILY PRN pain #4 tabs 01/07/25 Unknown Rx prednisone 10 mg tablet 10 mg PO DAILY #58 TABLETS 0 01/07/25 Unknown Rx Allergy/AdvReac Type Severity Reaction Status Date / Time aspirin Allergy Shortness Verified 01/07/25 09:36 of breath adhesive AdvReac Rash Verified 01/07/25 09:36 amoxicillin trihydrate (From AdvReac Other Verified 01/07/25 09:36 Augmentin) atorvastatin calcium (From AdvReac leg cramps Verified 01/07/25 09:36 Lipitor) isopropyl alcohol AdvReac Rash Verified 01/07/25 09:36 metoprolol succinate (From AdvReac Rash Verified 01/07/25 09:36 Toprol XL) naproxen (From Naprosyn) AdvReac Shortness Verified 01/07/25 09:36 of breath paroxetine HCl (From Paxil) AdvReac Unknown Verified 01/07/25 09:36 potassium clavulanate (From AdvReac tingling Verified 01/07/25 09:36 Augmentin) all over propoxyphene HCl (From AdvReac Unknown Verified 01/07/25 09:36 Darvon) sertraline HCl (From Zoloft) AdvReac Unknown Verified 01/07/25 09:36 simvastatin (From Zocor) AdvReac Unknown Verified 01/07/25 09:36 tiotropium bromide (From AdvReac Other Verified 01/07/25 09:36 Spiriva with HandiHaler) Family History Father Heart disease Hypertension High cholesterol CVA (cerebral vascular accident) Mother Dementia Surgical History (Reviewed 09/27/24 @ 14:19 by Monalisa Lyon MEDICATION CARE MANAGER, MEDICATION CARE MANAGER-C) History of coronary artery stent placement H/O [...] hernia repair History of tonsillectomy Social History housing: house Smoking Status: Former smoker pack-years: 67 second [...] Denies chest pain or palpitations Respiratory/Chest Respiratory/Chest: Denies cough or dyspnea Gastrointestinal Gastrointestinal: Denies abdominal pain, diarrhea, nausea or vomiting Genitourinary Genitourinary ED: Denies dysuria or hematuria Musculoskeletal Musculoskeletal: Reports arthralgias and back pain; Denies neck pain Integumentary Denies abscess or rash Neurologic Neurologic: Denies headache(s), paresthesias or weakness Psychiatric Psychiatric: Denies anxiety or suicidal thoughts EXAM Physical Exam Const Vital Signs: 01/07/25 09:34 01/07/25 09:47 Temperature 97 F L Temperature Source Temporal Pulse Rate 73 Respiratory Rate 16 Respiratory Effort Normal Non-Labored Respiratory Pattern Normal Blood Pressure 174/76 H Blood Pressure Mean 108 Pulse Ox 99 Oxygen Delivery Method Room Air Positive well nourished and well developed General Appearance ED: well developed and NAD HEENT Reports moist mucous membranes normocephalic and atraumatic Eyes PERRL and EOMs intact bilaterally Neck full ROM and supple Resp normal respiratory effort and clear to auscultation bilaterally Cardio regular rate, regular rhythm and no murmurs GI non-distended Back/Spine no CVA tenderness General Back: other FROM Extremity normal to inspection Extremity Narrative: Limited range of motion of affected joints due to pain. Left shoulder seems to be the most painful for him to move even when I move it passively with internal/external rotation patient was wincing inpain. There is no excessive warmth or erythema over the joint or deformity. I can passively range all joints of both lower extremities without any significant difficulty. He has a Velcro splint on his right wrist. He is neurovascular intact distally throughout all 4 extremities and is able to walk but with pain. General Extremety ED: Negative for edema, pulses abnormal or tenderness General Extremity: Negative for edema or pulses abnormal Neuro oriented x3, CN's II-XII intact bilaterally and no sensory deficits noted Sensorium / Orientation: awake and alert Motor Exam: strength 5/5 throughout Skin no rashes or lesions noted and no wounds MDM MDM MDM Narrative Medical decision making narrative: This patient symptoms are concerning for rheumatoid arthritis. He just finisheda 2-week plus prednisone taper 2 days ago and he states he is scheduled to see his primary care provider 2 days from nowwhen he expects to get a lot of testing. I advised him it would be better for him to wait until after the testing is performed to start the prednisone, in the meantime I offered prescription analgesics, he does not want anything narcotic including tramadol, I am going to put him on just several days worth of meloxicam since he has a history of some mild renal insufficiency according to old labs, for pain. I am also giving him a prescription for prednisone and encouraged him to try to wait untilafter he sees his primary care provider to start it. Discharge Plan Triage Chief Complaint: Other, Pain/Inj ED Provider: Barney Eli Dx/Rx/DC Orders Clinical Impression: Polyarthritis Instructions: Polyarthritis, ED Rheumatoid Arthritis Prescriptions: New prednisone 10 mg tablet 10 mg PO DAILY Qty: 58 0RF Rx Instructions: 4 po qd x 7 days, 3 po qd x 4d, 2 po qd x 3 days, 1 po qd x 3 days meloxicam 7.5 mg tablet 7.5 mg PO DAILY PRN (Reason: pain) Qty: 4 0RF No Action isosorbide mononitrate 30 mg tablet extended release 24 hr 30 mg PO QHS budesonide 0.5 mg/2 mL suspension for nebulization 0.5 mg inhalation Q12H PRN (Reason: breathing) (DME) Disability Placard See Rx Instructions .ROUTE .MEDSUPPLY Qty: 1 0RF Rx Instructions: [id number] furosemide 40 mg tablet 40 mg PO DAILY PRN (Reason: edema) Qty: 30 6RF clopidogrel 75 mg tablet 75 mg PO DAILY Qty: 90 3RF verapamil 240 mg tablet extended release 240 mg PO QHS Qty: 90 3RF tamsulosin 0.4 mg capsule 0.4 mg PO BID Qty: 180 1RF Rx Instructions: take one tab PO bid formoterol fumarate [Perforomist] 20 mcg/2 mL solution for nebulization 2 ml inhalation Q12H Qty: 120 11RF Stiolto Respimat 2.5-2.5 mcg/actuation mist 2 inh inhalation DAILY Qty: 4 2RF Primary Care Provider: Jeremiah Mckeon Referrals: Jeremiah Mckeon, MEDICATION CARE MANAGERMichelle [Primary Care Provider] - Keep Brittney appointment Print Language: Kazakh Disposition Disposition: Home, Self Care What to do if you have Problems For any increased pain, shortness of breath, bleeding, nausea or vomiting, chestpain, or any unexpected problems, contact your Primary Care Provider. Call [facility] ([phone]) or report tothe closest Emergency Room. Call 911 if necessary. 01/07/25 0905 Cosigner Signature (if applicable): CC: CODY Mckeon ~ Signed [facility]05-28-2025 Evaluation note* Diagnosis Onset Date Resolution Status Admit Date Hypoxia chronic September 27, 2024 2:06pm Multiple nodules of lung chronic September 27, 2024 2:06pm Stage 2 moderate COPD by GOL D classification chronic September 27, 2024 2 :06pm [facility] Work Phone: 1(639) 951-831305-28-2025 Evaluation note* Diagnosis Onset Date Resolution Status Admit Date Hypoxia chronic September 27, 2024 2:06pm Multiple nodules of lung chronic September 27, 2024 2:06pm Stage 2 moderate COPD by GOL D classification chronic September 27, 2024 2 :06pm Burn of finger of left hand, second degree acute January 08, 2 025 3:33pm [place] [employer] Work Phone: 1(932) 630-696405-02-2025 Radiology Diagnostic study [facility]04-11-2025 [facility]04-10-2025 Consult note Author Saroj Richards [facility] Note Date/Time August 11, 2024 12: 51pm [facility] Medical Records Department [address] [place] [address] Anesthesia Postop Eval II 08/10/241915 MR#: [id number] Acct: [id number] Name: BETTE CLEMENTS Rep #:[id number] : 1945 79 From: Saroj Richards MD PCP: CODY Burk Status:ADM IN Y Race: C Location: [place] [address] Anesthesia Postop Eval I Sum Postop Eval [...] No Vomiting: No Complications Anesthesia Complication: No 04/10/25 1916 <Electronically signed by Saroj anguiano MD> Date _ Saroj Richards MD Cosigner Signature: Date CC: ~ Signed [facility] Work Phone: 1(118) 680-150404-10-2025 Progress note Author Tiki Saldivar [facility] Note Date/Time August 10, 2024 5:1 2pm [facility] Medical Records Department [address] [place] [address] Progress Note - Hospitalist 08/10/24 1708 MR#: [id number] Acct: [id number] Name: BETTE CLEMENTS Rep #:[id number] : 1945 79 From: Tiki Saldivar MD PCP: Jeremiah Mckeon NP-C Status:ADM KISHORE Location: [place] [address] Reason for Visit Reason for Visit: Diagnoses [...] 08/10/24 13:37 RMA (Rec: 08/10/24 13:37 RMA [id number]) Nutrition Malnutrition Evidence of Yes Malnutrition Exists [...] 74.9 H, Lymph % (Auto) 11.4 L, [place] % (Auto) 7.6, Eos % (Auto) 4.8, [...] 79.5 H, Lymph % (Auto) 8.1 L, [place] % (Auto) 6.8, Eos % (Auto) 4.4, [...] documentation, 36Minutes Charges/Coding Visit Charges Inpatient E&M: 91971 Subs Hosp L2 08/10/241711 <Electronically signed by Tiki Saldivar MD> Cosigner Signature (if applicable): CC: ~ Signed [facility] Work Phone: 1(773) 908-412304-10-2025 Consult note Author Ryan Islas [facility] Note Date/Time August 10, 2024 3:3 2pm [facility] Medical Records Department [address] [place] [address] Anesthesia Postop Eval I 08/10/24 1531 MR#: [id number] Acct: [id number] Name: BETTE CLEMENTS Rep #:[id number] : 1945 79 From: Ryan Islas PCP: Jeremiah Mckeon NP-C Status:ADM KISHORE Y Race: C Location: [place] [address] Anesthesia: Postop Eval I Current Vital Signs [...] document: Postop Eval 1 completed: Yes 08/10/24 1532 <Electronically signed by Ryan Islas > Date _ Ryan Amezquita Signature: Date CC: ~ Signed [facility] Work Phone: 1(355) 967-165404-10-2025 Progress note Author Faraz Friend [facility] Note Date/Time August 10, 2024 2:5 3pm [facility] Medical Records Department [address] [place] [address] Progress Note 08/10/24 1452 MR#: [id number] Acct: [id number] Name: BETTE CLEMENTS Rep #:[id number] : 1945 79 From: Faraz Gonzáles DO PCP: CODY Burk Status:ADM KISHORE Location: [place] [address] Progress Note Patient did have some bleeding [...] of his rectum. Visit Charges Inpatient E&M: 17484 Subs Hosp L3 08/10/24 1217 <Electronically signed by Faraz Gonzáles DO> Faraz Gonzáles DO Cosigner Signature (if applicable): CC: ~ Signed [facility] Work Phone: 1(878) 102-455104-10-2025 Consult note Author Saroj Richards [facility] Note Date/Time August 10, 2024 2:1 6pm [facility] Medical Records Department [address] [place] [address] Pre-Anesthesia Evaluation 08/10/24 1407 MR#: [id number] Acct: [id number] Name: BETTE CLEMENTS Rep #:[id number] : 1945 79 From: Saroj Richards MD PCP: CODY Burk Status:ADM KISHORE Y Race: C Location: [place] [address] ASA Classification* ASA Classification ASA Classification: 3 [...] of bleeding. 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: Anesthesia History - venetian blind installer Hx Hospitalization No 07/17/24 13:20 Any Problems [...] sips of water?: No PONV PONV - venetian blind installer: PONV - venetian blind installer Female HX of Motion Sickness HX of N/V After Surgery Non-Smoker Duration of Surgery greater than 60 minutes Number of Risk Factors PONV Score Height & Weight Height & Weight: Anesthesia: Height & Weight Height 5 ft 7 in 08/10/24 13:17 Weight: 60.9 kg 08/10/24 13:17 Body Mass Index (BMI) 21.0 08/09/24 19:50 Respiratory Assessment Respiratory Assessment - venetian blind installer: Respiratory Tract Infection Hx - venetian blind installer Hx Respiratory Tract Infection No 08/10/24 02:22 STOP Sleep Apnea STOP Sleep Apnea - venetian blind installer: STOP Sleep Apnea - venetian blind installer Hx Hypertension Yes 08/09/24 19:50 Hx Sleep [...] Tobacco Use History Tobacco Use History - venetian blind installer: Tobacco Use History - venetian blind installer Tobacco Use Non-smoker 02/28/24 10:04 Smoking Status Former smoker 08/09/24 19:50 Hx Tobacco Use No 08/09/24 19:50 Years Smoking Packs Smoked per Day Smoking Cessation Date was No - quit smoking greater 08/09/24 19:50 within the last 15 years than 15 years ago Hx Smoking Cessation Date 05/03/00 08/09/24 19:50 Hx Smoking Cessation Counseling Hematologic Medial History Hematologic Hx - venetian blind installer: Hematologic 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 INHALATION 0.5 mg BID.RT BRITTNEY Administration Fluticasone Propionate 1 spray 08/10/24 02:02 08/10/24 02:18 Fluticasone 0.05% 1 [place] Nasal.Sry NASAL 1 spray BID PRN PRN Administration CONGESTION Furosemide 40 mg 08/09/24 19:57 Furosemide 40 Mg Tablet PO DAILY PRN edema Protocol Hydrocortisone Acetate 25 mg 08/09/24 22:00 08/09/24 20:42 Hydrocortisone 25 Mg Suppository RC 25 mg QHS BRITTNEY Administration Sodium Chloride 100 mls @ 15 mls/hr 08/09/24 20:02 IV .Q6H40M PRN Saline Flush Sodium Chloride 100 mls @ 15 mls/hr 08/09/24 20:02 IV .Q6H40M PRN Additional IVPB Infusion Isosorbide Mononitrate 30 mg 08/10/24 10:00 Isosorbide Mononitrate 30 Mg Tablet PO DAILY [facility] Protocol Sodium Chloride 10 - 40 ml 08/09/24 20:02 08/10/24 13:59 0.9% Saline Lock 10 Ml Syringe IV 10 ml UD PRN Administration SALINE FLUSH Tamsulosin HCl 0.4 mg 08/09/24 22:00 08/10/24 09:59 Tamsulosin Hcl 0.4 Mg Capsule PO Not Given BID [facility] Verapamil HCl 240 mg 08/09/24 22:00 08/09/24 20:42 Verapamil Sr 240 Mg Tablet PO 240 mg QHS [facility] Administration Protocol [facility] Medical History GI bleed Marijuana use [...] (primary) hypertension Hyperlipidemia 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 Old inferior [...] mL hydrocortisone acetate 25 mg 25 mg TX QHS proctitis #1 2 ea 08/02/24 08/08/24 [...] MD Cosigner Signature: Date CC: ~ Signed [facility] Work Phone: 1(607) 634-505004-10-2025 Procedure [facility] 08-10-2024 Procedure [facility]04-10-2025 Discharge summary Author Viral Gutiérrez [facility] Note Date/Time August 09, 2024 11:0 3pm [facility] Medical Records Department [address] [place] [address] Emergency Department Summary 08/09/24 MR#: [id number] Acct: [id number] Name: BETTE CLEMENTS Rep #:[id number] : 1945 79 From: Viral Garcia PCP: Jeremiah Mckeon NP-C Status:ADM KISHORE Location: [place] [address] HPI HPI - GI History of Present [...] a call back. 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 I discussed with GI Dr. Friend, would like admission to medicine with bowel prep. He will likely plan recolonoscopy with intervention as needed. [place] score is 14. I discussed with hospitalist Dr. Fontana for admission to the medical floor. Re-evaluation: stable Disposition discussed with patient/family/significant other: Patient Case discussed with consulting clinician: N/A This note was generated with [employer] dictation software. It may contain incorrectwords, spelling, [...] 74.9 H Lymph % (Auto) 11.4 L [place] % (Auto) 7.6 Eos % (Auto) 4.8 [...] of colon Disposition Disposition: Acute Care [facility] Discharge Date/Time: 08/09/24 18:54 What to do if you have Problems For any increased pain, shortness of breath, bleeding, nausea or vomiting, chestpain, or any unexpected problems, contact your Primary Care Provider. Call [facility] ([phone]) or report to the closest Emergency Room. Call 911 if necessary. 08/09/242302 <Electronically signed by Viral Garcia> Cosigner Signature (if applicable): CC: CODY Mckeon ~ Signed [facility] Work Phone: 1(630) 456-825704-09-2025 Consult note Author Faraz Gonzáles [facility] Note Date/Time August 09, 2024 8:38 pm [facility] Medical Records Department [address] [place], [place] [address] Consultation - GI 08/09/242033 MR#: [id number] Acct: [id number] Name: BETTE CLEMENTS Rep #:[id number] : 1945 79 From: Faraz Gonzáles DO PCP: CODY Burk Status:ADM KISHORE Location: [place] [address] HPI Consult Data Date of Consult: 08/09/24 [...] the last few days. No lightheaded symptoms. 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 Charges/Coding Visit Charges Inpatient E&M: 97265 Init Hosp L3 08/09/242037 <Electronically signed by Faraz Friend DO> Cosigner Signature (if applicable): CC: CODY Mckeon~ Signed [facility] Work Phone: 1(137) 179-741604-09-2025 History and physical note Author Rhys Fontana [facility] Note Date/Time August 09, 2024 7:10 pm [facility] Medical Records Department [address] [place] [address] H&P Exam - Hospitalist 08/09/24 1903 MR#: [id number] Acct: [id number] Name: BETTE CLEMENTS Rep #:[id number] : 1945 79 From: Rhys fallon MD PCP: CODY Burk Status:ADM KISHORE Location: [place] [id number] HPI - General General Date of Admission: [...] gastroenterology who recommended admission for colonoscopy tomorrow. 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 Rhys Fontana MD~ Signed [facility] Work Phone: 1(502) 296-405703-28-2025 Discharge summary Author Rhys Fontana [facility] Note Date/Time July 28, 2024 12: 59pm [facility] Medical Records Department [address] [place] [address] Instructions for Home/Discharge Instructions 07/28/24 1257 MR#: [id number] Acct: [id number] Name: BETTE CLEMENTS Rep #:[id number] : 1945 79 From: Rhys fallon MD [...] .ROUTE .MEDSUPPLY Qty: 1 0RF Rx Instructions: [id number]/12/2028 formoterol fumarate [Perforomist] 20 mcg/2 mL solution [...] Prof] - 08/02/24 10:00 am Jeremiah Mckeon, KAIC [Primary Care Provider] - Within 1 Week Disposition Disposition (needs filled in before D/C Order can be placed): Home, Self Care 07/28/24 1300<Electronically signed by Rhys Fontana MD>Rhys Fontana MD CC: MEDICATION CARE MANAGER-C Jeremiah Mckeon; Dr. Tiki Saldivar MD ~ Signed [facility] Work Phone: 1([phone]) 272-517303-28-2025 [facility]03-27-2025 Discharge summary Author Devon Reagan [facility] Note Date/Time July 27, 2024 5:1 5pm [facility] Medical Records Department [address] [place] [address] Emergency Department Summary 07/27/24 MR#: [id number] Acct: [id number] Name: BETTE CLEMENTS Rep #:[id number] : 1945 79 From: Devon huff DO PCP: CODY Burk Status:ADM KISHORE Location: [place] [address] HPI History of Present Illness Chief Complaint: [...] intact Psych: Cooperative, appropriate mood and affect [facility] Medical History Marijuana use Prostate disease [...] (primary) hypertension Hyperlipidemia 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 Reading Location: [place] Discharge Plan Disposition Disposition: Acute Care [facility] Discharge Date/Time: 07/27/24 16:35 What to do if you have Problems For any increased pain, shortness of breath, bleeding, nausea or vomiting, chestpain, or any unexpected problems, contact your Primary Care Provider. Call [facility] ([phone]) or report to the closest Emergency Room. Call 911 if necessary. 07/27/245 <Electronically signed by Devon Reagan DO> Cosigner Signature (if applicable): CC: CODY Mckeon ~ Signed [facility] Work Phone: 1([phone]) 257-947803-27-2025 History and physical note Author Tiki Saldivar [facility] Note Date/Time July 27, 2024 4:3 5pm [facility] Medical Records Department [address] [place], [place] [address] [address] H&P Exam - Hospitalist 07/27/24 1608 MR#: [id number] Acct: [id number] Name: BETTE CLEMENTS Rep #:[id number] : 1945 79 From: Tiki Saldivar MD PCP: CODY Burk Status:ADM KISHORE Location: [place] [address] HPI - General General Date of Admission: 07/27/24 Date of Service: 07/27/24 Chief Complaint: Diarrhea and blood in stool HPI Narrative BETTE CLEMENTS, is a 79M with history of coronary artery disease status post PCI onPlavix, prostate cancer status post radiation and current hormonal therapy with Dr. Montaño, previous colon cancer status post colon resection, previous GI bleedpresented to [facility] ED 07/27/2024 for evaluation of repeat GIbleed. [...] no nausea or vomiting, no urinary symptoms. 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 Tiki Saldivar MD~ Signed [facility] Work Phone: 1([phone]) 496-671303-27-2025 Radiology Diagnostic study [facility]03-18-2025 Procedure [facility]03-18-2025 Procedure [facility]03-18-2025 Consult note Author Sinan Parmar [facility] Note Date/Time July 18, 2024 12: 40pm [facility] Medical Records Department [address] [place] [address] Pre-Anesthesia Evaluation 07/18/24 1236 MR#: [id number] Acct: [id number] Name: BETTE CLEMENTS Rep #:[id number] : 1945 79 From: Sinan Parmar MD PCP: Jeremiah Mckeon MEDICATION CARE MANAGERAnshulC Status:REG SDC Y Race: C Location: [place] [address] ASA Classification* ASA Classification ASA Classification: 3 [...] Procedure(s): CSCOPE 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: Anesthesia History - venetian blind installer Hx Hospitalization No 07/17/24 13:20 Any Problems [...] take am of surgery PONV PONV - venetian blind installer: PONV - venetian blind installer Female No 07/17/24 13:20 HX of Motion [...] 07/18/24 12:21 Respiratory Assessment Respiratory Assessment - venetian blind installer: Respiratory Tract Infection Hx - venetian blind installer Hx Respiratory Tract Infection No 07/17/24 13:20 STOP Sleep Apnea STOP Sleep Apnea - venetian blind installer: STOP Sleep Apnea - venetian blind installer Hx Hypertension Yes 07/17/24 13:20 Hx Sleep [...] Tobacco Use History Tobacco Use History - venetian blind installer: Tobacco Use History - venetian blind installer Tobacco Use Non-smoker 02/28/24 10:04 Smoking Status Former smoker 07/17/24 13:20 Hx Tobacco Use No 07/17/24 13:20 Years Smoking Packs Smoked per Day Smoking Cessation Date was No - quit smoking greater 07/17/24 13:20 within the last 15 years than 15 years ago Hx Smoking Cessation Date 05/03/00 07/17/24 13:20 Hx Smoking Cessation Counseling Hematologic Medial History Hematologic Hx - venetian blind installer: Hematologic 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 Hx of Blood Transfusion Yes 07/17/24 13:20 [...] confused, unrespo /Reproduction History /Reproductive History - venetian blind installer: /Reproductive Hx- venetian blind installer Hx Now No 07/17/24 13:20 Gestational Age (in weeks): EDC: Hx Hx Para Hx Section SAB No 07/17/24 13:20 [facility] Medical History (Updated 07/17/24 @ 13:30 by [...] (primary) hypertension Hyperlipidemia 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 Old inferior [...] Surgical History (Updated 07/17/24 @ 13:30 by Blacna Adrian) H/O hernia repair History of left [...] MD Cosigner Signature: Date CC: ~ Signed [facility] Work Phone: 1(462) 623-372203-18-2025 [facility]02-12-2025 Evaluation note* Diagnosis Onset Date Resolution [...] 2024 5:09pm Rectal bleeding inactive August 5:09pm [facility] Work Phone: 1(373) 379-210001-09-2025 Evaluation note* Diagnosis Onset Date Resolution Status [...] 2024 5:09pm Rectal bleeding inactive August 5:09pm [facility] Work Phone: 1(288) 578-772112-18-2024 Evaluation note* Diagnosis Onset Date Resolution Status Admit Date BPH (benign prostatic hyperplasia) chronic April 19, 2 024 12:55pm COPD (chronic obstructive pulmonary disease) chronic April 12:55pm Hypertension chronic April 12:55pm Insomnia chronic April 19, 2024 12:55pm Hypokalemia resolved April 12:55pm Carotid stenosis, left acute Ja nuary 2024 [...] acid level acute July 27, 2024 4:08pm [facility] Work Phone: 1(729) 265-679512-18-2024 Evaluation note* Diagnosis Onset Date Resolution Status Admit Date BPH (benign prostatic hyperplasia) chronic April 19, 2 024 12:55pm COPD (chronic obstructive pulmonary disease) chronic April 12:55pm Hypertension chronic April 12:55pm Insomnia chronic April 19, 2024 12:55pm Hypokalemia resolved April 12:55pm Carotid stenosis, left acute Ja [facility] 2024 10:53am History of endovascular [...] Rectal bleeding acute July 11:49am Dehydration acute March 27th, 2 025 4:08pm Elevated lactic acid level resolved July 27, 2024 4:08pm Abnormal abdominal CT scan acute August 02, 2024 9:53am Radiation proctitis acute August 02, 2024 9:53am Rectal bleeding acute August 9:53am [facility] Work Phone: 1(689) 433-717312-18-2024 Evaluation note* Diagnosis Onset Date Resolution Status Admit Date BPH (benign prostatic hyperplasia) chronic April 19, 2 024 12:55pm COPD (chronic obstructive pulmonary disease) chronic April 12:55pm Hypertension chronic April 12:55pm Insomnia chronic April 19, 2024 12:55pm Hypokalemia resolved April 12:55pm Carotid stenosis, left acute Ja [facility] 2024 10:53am History of endovascular sten t graft for abdominal aortic aneurysm acute May 11 10:53am Multiple nodules of lung acute June 14, 2024 1:41pm Hypoxia chronic June 14, 2024 1:41pm Stage 2 moderate COPD by GOL D classification chronic June 14 2 025 1:41pm Personal history of other malignant neoplasm of large intestine acute July 18, 2024 11:49am Rectal bleeding acute July 11:49am Dehydration acute July 27, 2 025 4:08pm Elevated lactic acid level resolved July 27, 2024 4:08pm Abnormal abdominal CT scan acute August 02, 2024 9:53am Radiation proctitis acute August 02, 2024 9:53am Rectal bleeding acute August 9:53am Angiodysplasia of colon acute A pri2024 5:09pm Personal history of other malignant neoplasm of large intestine acute August 10, 2024 5:09pm Rectal bleeding acute August 5:09pm [facility] Work Phone: 1([phone]) 647-802612-15-2024 Consult note Author Sinan Parmar [facility] Note Date/Time July 18, 2024 3:5 7pm [facility] Medical Records Department [address] [place] [address] Anesthesia Postop Eval II 07/18/24 1523 MR#: [id number] Acct: [id number] Name: BETTE CLEMENTS Rep #:[id number] : 1945 79 From: Sinan Parmar MD PCP: KAI BurkC Status:REG SDC Y Race: C Location: [address] Anesthesia Postop Eval I Sum Postop Eval Completion status Anesthesia document: Postop Eval 1 completed: Yes Anesthesia Postop Eval I Summary Anesthesia Postop Eval I Summary: Anesthesia Postop Eval I: Assessment Summary Airway patent Yes 07/18/24 15:02 PACKER INSULATION.HBARR Spontaneous unlabored Yes 07/18/24 15:02 PACKER INSULATION.HBARR respirations Mental status Awake 07/18/24 15:02 PACKER INSULATION.HBARR nausea No 07/18/24 15:02 PACKER INSULATION.HBARR Vomiting No 07/18/24 15:02 PACKER INSULATION.HBARR Anesthesia Postop Eval I: Fluid Summary Crystalloid volume administer 10 07/18/24 15:02 PACKER INSULATION.HBARR (ml) Colloids volume administered ( ml) Blood Product volume administered (ml) Total IV fluid infused 10 07/18/24 15:02 PACKER INSULATION.HBARR Anesthesia Postop Eval I: Summary Notes Anesthesia Complication No 07/18/24 15:02 PACKER INSULATION.HBARR Anesthesia Complication Comment: Post-operative progress note Anesthesia: Postop Eval II Evaluation Mental status: Awake Pain Level: 0 nausea: No Vomiting: No Complications Anesthesia Complication: No 07/18/24 1523 <Electronically signed by Snian Parmar MD> Date _ Sinan Parmar MD Cosigner Signature: Date CC: ~ Signed [facility] Work Phone: 1(186) 685-915311-19-2024 Evaluation note* Diagnosis Onset Date Resolution Status [...] April 12:55pm Carotid stenosis, left acute Ja nuary 2024 [...] 2024 11:49am Rectal bleeding acute July 11:49am [facility] Work Phone: 1(773) 827-830207-17-2023 Progress note Author Heri Ewing [facility] November 16, 2022 10:55am Note Date/Time November 16, 2022 7:57 am [facility] Medical Records Department [address] [place] [address] Progress Note - Hospitalist 11/16/22 0756 MR#: [id number] Acct: [id number] Name: BETTE CLEMENTS Rep #:[id number] : 1945 77 From: Heri Ewing DO PCP: Dr. 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 (11/14/22) Old [...] Clarity Clear, Urine pH 6.5, Ur Specific [place] 1.010, Urine Protein Negative, Urine Glucose (UA) [...] Cosigner Signature (if applicable): CC: ~ Signed [facility] Work Phone: 1(565) 776-147207-16-2023 Progress note Author Good Mensah tr [facility] November 15, 2022 7:56pm Note Date/Time November 15, 2022 7:43 pm [facility] Medical Records Department [address] [place] [address] Progress Note - Nephrology 11/15/221938 MR#: [id number] Acct: [id number] Name: BETTE CLEMENTS Rep #:[id number] : 1945 77 From: Good barfield MD PCP: Dr. Spenser Sanchez MD Status:A DM IN Location: [place] [address] Subjective Subjective Following for CKD. The patient [...] (Auto) 69.1, Lymph % (Auto) 13.7 L, [place] % (Auto) 6.3, Eos % (Auto) 9.4 [...] Clarity Clear, Urine pH 6.5, Ur Specific [place] 1.010, Urine Protein Negative, Urine Glucose (UA) [...] monitored by PCP. He has not seen solar site assessment specialist in the past. Renal function has been [...] Cosigner Signature (if applicable): CC: ~ Signed [facility] Work Phone: 1([phone]) 254-946107-16-2023 Progress note Author Heri Ewing [facility] November 15, 2022 12:33pm Note Date/Time November 15, 2022 8:26 am [facility] Medical Records Department [address] [place] [address] Progress Note - Hospitalist 11/15/22 0824 MR#: [id number] Acct: [id number] Name: BETTE CLEMENTS Rep #:[id number] : 1945 77 From: Heri Ewing DO PCP: Dr. 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 (11/14/22) Old [...] (Auto) 69.1, Lymph % (Auto) 13.7 L, [place] % (Auto) 6.3, Eos % (Auto) 9.4 [...] Performed By: Laila Turner RDCS Physical Exam Const alert and no apparent [...] * heparin gtt * tentative plan for [facility] on 11/16 PLAN: Plan Chronic conditions: * [...] no intubation Charges/Coding Visit Charges Inpatient E&M: 49013 Subs Hosp L2 11/15/22 1233 <Electronically signed by Heri Ewing DO> Cosigner Signature (if applicable): CC: ~ Signed [facility] Work Phone: 1([phone]) 386-168107-16-2023 Progress note Author Bethel Gallegos [facility] November 15, 2022 12:20pm Note Date/Time November 15, 2022 11:3 8am [facility] Medical Records Department [address] [place] [address] Progress Note - Cardiology 11/15/22 1131 MR#: [id number] Acct: [id number] Name: BETTE CLEMENTS Rep #:[id number] : 1945 77 From: Bethel Gallegos MD PCP: Dr. Spenser Sanchez MD Status:A DM IN Location: [place] [address] Subjective Subjective Symptoms reported today No events noted from last night. 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 Patient also had CKD, seen by solar site assessment specialist on this admission Cardiac care plan recommendation We will plan for cardiac catheterization tomorrow if renal function is stable By his primary second vp hr assessment Dr. Steinberg With minimal contrast no left ventriculogram If significant coronary atherosclerosis identified Will stage for elective PCI. Minimize risk of contrast-induced nephropathy We will continue current medical treatment. Also will start on rehydration overnight Plan of cardiac catheterization discussed with the patient and nursing staff. 11/15/22 1220 <Electronically signed by Bethel Gallegos MD> Cosigner Signature (if applicable): CC: ~ Signed [facility] Work Phone: 1([phone]) 114-917007-15-2023 Consult note Author Good olmedo [facility] November 14, 2022 7:31pm Note Date/Time November 14, 2022 6:05 pm [facility] Medical Records Department [address] [place] [address] Consultation - Nephrology 11/14/22 1756 MR#: [id number] Acct: [id number] Name: BETTE CLEMENTS Rep #:[id number] : 1945 77 From: Good barfield MD PCP: Dr. Spenser Sanchez MD Status:A DM IN Location: [place] [address] Assessment & Plan Assessment/Plan (1) Chronic kidney [...] monitored by PCP. He has not seen solar site assessment specialist in the past. Renal function has been [...] MRA. He was not onscheduled diuretic either. 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 Back pain [...] for nebulization 0.5 mg (2 mL) inhalation M26Qmzym #180 mL 03/25/22 [Rx Last Taken 07/23/22] [...] calcium 325 mg-vit D3 12.5 mcg-zinc 2.75 vl-nyohcm-xsmhryxzs tablet (Citracal-Z8Qzvlauk Plus) 2 tab PO BID bone deficiency [...] % (Auto) 63.8, Lymph % (Auto) 19.2, [place] % (Auto) 7.4, Eos % (Auto) 8.5 [...] Bethel Gallegos MD; Dr.Natthavat Mini MD~ Signed [facility] Work Phone: 1([phone]) 464-659607-15-2023 Consult note Author Bethel Gallegos [facility] November 14, 2022 12:18pm Note Date/Time November 14, 2022 12:1 0pm [facility] Medical Records Department [address] [place] [address] Consultation - Cardiology 11/14/22 1158 MR#: [id number] Acct: [id number] Name: BETTE CLEMENTS Rep #:[id number] : 1945 77 From: Bethel Gallegos MD PCP: Dr. 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 Steinberg I requested the solar site assessment specialist consultation the patient IV hydration with the planof repeating the BMP and cardiac markers. Explained the need of cardiac catheterization in detail to the patient and family and nursing staff. 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 Back pain [...] for nebulization 0.5 mg (2 mL) inhalation K79Ejbmm #180 mL 03/25/22 [Rx Last Taken 07/23/22] [...] calcium 325 mg-vit D3 12.5 mcg-zinc 2.75 gu-whmhrd-efjscetvo tablet (Citracal-P2Aoxblvn Plus) 2 tab PO BID bone deficiency [...] denied symptoms of chest pain/chest pain resolved library monitor normal sinus rhythm Cardiac exam S1-S2 [...] % (Auto) 63.8, Lymph % (Auto) 19.2, [place] % (Auto) 7.4, Eos % (Auto) 8.5 [...] Neut % (Auto) 63.8,Lymph % (Auto) 19.2, [place] % (Auto) 7.4, Eos % (Auto) 8.5 [...] Brannon Degroot DO at 2:44 EDT , 11/14/22 1218 <Electronically signed by Bethel Gallegos MD> Cosigner Signature (if applicable): CC: Dr. Delma Gonsalves MD; Dr. Spenser Sanchez MD; Dr. 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 acute NSTEMI, initial episode of care acute History of endovascular sten t graft for abdominal aortic aneurysm (AAA) June 25, 2020 resolved Hypokalemia resolved Acute non-ST elevation myoca rdial infarction (NSTEMI) November 14, 2022 acute 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 acute History of endovascular sten t graft for abdominal aortic aneurysm (AAA) June 25, 2020 resolved [id number] acute Acute non-ST elevation myoca rdial infarction (NSTEMI) November 14, 2022 acute 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 acute SOB (shortness of breath) ac picayune History of endovascular sten t graft for abdominal aortic aneurysm (AAA) June 25, 2020 resolved [facility] Work Phone: 1(269) 129-580307-15-2023 Evaluation note* Diagnosis Onset Date Resolution Status Trigger finger acute Acute non-ST elevation myoca rdial infarction (NSTEMI) November 14, 2022 acute 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 acute NSTEMI, initial episode of care acute History of endovascular sten t graft for abdominal aortic aneurysm (AAA) June 25, 2020 resolved Hypokalemia resolved Acute non-ST elevation myoca rdial infarction (NSTEMI) November 14, 2022 acute 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 acute History of endovascular sten t graft for abdominal aortic aneurysm (AAA) June 25, 2020 resolved [id number] acute 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 acute HFrEF (heart failure with re duced ejection fraction) acute SOB (shortness of breath) ac picayune History of endovascular sten t graft for abdominal aortic aneurysm (AAA) June 25, 2020 resolved [id number] acute 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 acute HFrEF (heart failure with re duced ejection fraction) acute SOB (shortness of breath) ac picayune History of endovascular sten t graft for abdominal aortic aneurysm (AAA) June 25, 2020 resolved Asthmatic bronchitis with exacerbation acute [facility] Work Phone: 1(524) 427-602107-15-2023 Progress note Author Heri Ewing [facility] November 14, 2022 11:48am Note Date/Time November 14, 2022 8:45 am [facility] Medical Records Department [address] [place] [address] Progress Note - Hospitalist 11/14/22 0839 MR#: [id number] Acct: [id number] Name: BETTE CLEMENTS Rep #:[id number] : 1945 77 From: Heri Ewing DO PCP: Dr. Spenser Sanchez MD Status:A DM IN Location: [place] [address] Reason for Visit Reason for Visit: Diagnoses [...] % (Auto) 63.8, Lymph % (Auto) 19.2, [place] % (Auto) 7.4, Eos % (Auto) 8.5 [...] Brannon Degroot DO at 2:44 EDT , Physical Exam [...] * heparin gtt * tentative plan for [facility] on 11/16 PLAN: Plan Chronic conditions: * [...] no intubation Charges/Coding Visit Charges Inpatient E&M: 88804 Subs Hosp L2 11/14/22 114 <Electronically signed by Heri Ewing DO> Cosigner Signature (if applicable): CC: ~ Signed [facility] Work Phone: 1(312) 578-441407-15-2023 Discharge summary Author Rafa Hernandez [facility] November 14, 2022 7:09am Note Date/Time November 14, 2022 5:13 am [facility] Medical Records Department [address] [place] [address] Emergency Department Summary 11/14/22 MR#: [id number] Acct: [id number] Name: BETTE CLEMENTS Rep #:[id number] : 1945 77 From: Rafa David PCP: Dr. Spenser Sanchez MD Status:A DM IN Location: [address] History of Present Illness Chief Complaint: [...] to bring the patient in for evaluation. 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 Back pain [...] for nebulization 0.5 mg (2 mL) inhalation W45Magoy #180 mL 03/25/22 [Rx Last Taken 07/23/22] [...] % (Auto) 63.8 Lymph % (Auto) 19.2 [place] % (Auto) 7.4 Eos % (Auto) 8.5 [...] (Auto) Neut % (Auto) Lymph % (Auto) [place] % (Auto) Eos % (Auto) Baso % [...] Brannon Degroot DO at 2:44 EDT , Chest x-rays interpreted by the emergency medicine physician reveals no acute infiltrate pneumothorax or pleural effusion Management Discussion w/another healthcare provider: Hospitalist and Commercial Marketing Specialist Discharge Plan Dx/Rx/DC Orders Clinical Impression: Acute non-ST elevation myocardial infarction (NSTEMI), Essential (primary) hypertension, Hyperlipidemia, 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 classification Disposition Disposition: Acute Care Hospital [facility] Discharge Date/Time: 11/14/22 06:18 What to do if you have Problems For any increased pain, shortness of breath, bleeding, nausea or vomiting, chestpain, or any unexpected problems, contact your Primary Care Provider. Call [facility] ([phone]) or report to the closest Emergency Room. Call 911 if necessary. 11/14/22 0709 <Electronically signed by Rafa Hernandez DO> Cosigner Signature (if applicable): CC: Dr. Spenser Sanchez MD ~ Signed [facility] Work Phone: 1(401) 539-282107-15-2023 History and physical note Author Delma Gonsalves [facility] November 14, 2022 6:15am Note Date/Time November 14, 2022 5:15 am [facility] Medical Records Department [address] [place] [address] H&P Exam - Hospitalist 11/14/22 0512 MR#: [id number] Acct: [id number] Name: BETTE CLEMENTS Rep #:[id number] : 1945 77 From: Delma Gonsalevs MD PCP: Dr. Spenser Sanchez MD Status:A DM IN Location: [place] [address] HPI - General General Date of Admission: [...] with Dr. Steinberg who presents to the [facility] ED on 11/14/22 with history of [...] case was discussed per ED physician with second vp hr assessment Dr. Henson noted possible catheterization Wednesday if remain chest pain-free. 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 Steinberg who presents to the [facility] ED on 11/14/22 with history of [...] CODE status: Patient ROXANA is his son Rob and living will is currently in place. [...] 60 minutes. Charges/Coding Visit Charges Inpatient E&M: 79042 Init Hosp L2 Procedures Hospitalists Procedures: 09676 Advncd Care Plan 30 Min 11/14/22 0614 [...] MD; Dr. Spenser Sanchez MD ~* Signed [facility] Work Phone: 1(109) 903-146807-02-2023 Discharge summary Author Thomas Oropeza [facility] November 01, 2022 1:22pm Note Date/Time November 01, 2022 8:27a m [facility] Medical Records Department [address] [place] [address] Emergency Department Summary 11/01/22 MR#: [id number] Acct: [id number] Name: BETTE CLEMENTS Rep #:[id number] : 1945 77 From: Thomas Oropeza MD PCP: Dr. Spenser Sanchez MD Status:R EG ER Location: ED HPI History of Present Illness Chief Complaint: Hypertension Detail of Chief Complaint: Intermittent nonexertional chest pain Informant: patient Onset/Context/Timing Onset: Days Context: Gradual Onset Timing: Intermittent Current Severity: Gone Maximum Severity: Mild Narrative Narrative: 77-year-old male extensive past medical history of prior MN in 2007 he is a cardiac stents [...] similar symptoms: No Recent Illness/Hospitalization: No PFSH 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 Christiano Steinberg to see if they [...] 71.8 H Lymph % (Auto) 16.9 L [place] % (Auto) 8.6 Eos % (Auto) 1.6 [...] rate of 78 no acute signs of MN or ischemia. Discharge Plan Triage Chief Complaint: [...] your Primary Care Provider. Call [facility] ([phone]) or report to the closest Emergency Room. Call 911 if necessary. 11/01/22 1322 <Electronically signed by Thomas Oropeza MD> Cosigner Signature (if applicable): CC: Dr. Spenser Sanchez MD ~ Signed [facility] Work Phone: 1(378) 470-642003-26-[address] Zarate [facility] July 26, 2022 10:57am Note Date/Time July 26, 2022 10: 43am [facility] Medical Records Department [address] [place] [address] Progress Note - Surgery 07/26/22 1043 MR#: [id number] Acct: [id number] Name: BETTE CLEMENTS Rep #:[id number] : 1945 77 From: Marcela Zarate MD PCP: Dr. Spenser Sanchez MD Status:A DM IN Location: [place] [id number] Subjective Subjective patient feeling much improved denies [...] 72.1 H, Lymph % (Auto) 12.2 L, [place] % (Auto) 8.1, Eos % (Auto) 6.3 [...] Cosigner Signature (if applicable): CC: ~ Signed [facility] Work Phone: 1(477) 905-547103-26-[address] Zarate [facility] July 26, 2022 10:44am Note Date/Time July 26, 2022 10: 44am [facility] Medical Records Department [address] [place] [address] Instructions for Home/Discharge Instructions 07/26/22 1043 MR#: [id number] Acct: [id number] Name: BETTE CLEMENTS Rep #:[id number] : 1945 77 From: Marcela Zarate MD [...] MD; Dr. Robel Figueredo MD ~ Signed [facility] Work Phone: 1(292) 757-579503-25-[address] Eli [facility] July 25, 2022 5:24pm Note Date/Time July 25, 2022 7:2 4am [facility] Medical Records Department [address] [place] [address] Emergency Department Summary 07/25/22 MR#: [id number] Acct: [id number] Name: BETTE CLEMENTS Rep #:[id number] : 1945 77 From: Barney Eli MD PCP: Dr. Spenser Sanchez MD Status:A DM IN Location: [place] [address] HPI HPI - GI History of Present [...] acutely, last bowel movement was sometime yesterday. [facility] Medical History (Updated 07/25/22 @ 10:[address] 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 Call [facility] ([phone]) or report to the closest Emergency Room. Call 911 if necessary. 07/25/22 1724 <Electronically signed by Barney Eli MD> Cosigner Signature (if applicable): CC: Dr. Spenser Sanchez MD ~ Signed [facility] Work Phone: 1(268) 965-393803-25-2023 History and physical note Author Nick Maguire [facility] July 25, 2022 5:06pm Note Date/Time July 25, 2022 5:0 6pm [facility] Medical Records Department [address] [place] [address] H&P Exam - Hospitalist 07/25/22 1654 MR#: [id number] Acct: [id number] Name: BETTE CLEMENTS Rep #:[id number] : 1945 77 From: Nick Maguire MD PCP: Dr. Spenser Sanchez MD Status:A DM IN [place] [facility] [place] HPI - General General Date of Admission: [...] mid teens. He is not a smoker. [facility] Medical History (Updated 07/25/22 @ 17:[address] 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 Charges/Coding Visit Charges Inpatient E&M: 96485 Init Hosp L2 03/25/23 1706 <Electronically signed by Nick Maguire MD> Cosigner Signature (if applicable): CC: Dr. Spenser Sanchez MD; Nick Maguire MD~ Signed [facility] Work Phone: [phone]) 869-551803-25-[address] Zarate [facility] July 25, 2022 2:57pm Note Date/Time July 25, 2022 2:5 5pm [facility] Medical Records Department [address] [place] [address] Consultation - Surgical 07/25/22 1444 MR#: [id number] Acct: [id number] Name: BETTE CLEMENTS Rep #:[id number] : 1945 77 From: Marcela Zarate MD PCP: Dr. Spenser Sanchez MD Status:A DM IN Location: [place] [address] Assessment & Plan Assessment/Plan (1) Complete small [...] and abdominla pain. CT scan findings from [facility] ED reveals bowel obstruction. However, patient [...] PSA, evaluation by Dr. 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 Spenser Sanchez MD~ Signed [facility] Work Phone: 1(224) 780-119203-10-2023 History of Present illness Narrative* Uriah Mcarthur PA-C - 07/10/2022 3:10 PM EST Images from the original note were not included. [facility] NEW PATIENT CLINIC NOTE [...] (FLONASE) 50 mcg/actuation nasal spray Use 1 [place]uster in each nostril once daily. verapamil SR [...] needed. (Patient not taking: Reported on 07/10/2022) Tpdcjcpoulg-Zygloewfw-Mhp C-Mn (GLUCOSAMINE CHONDROITIN MAXSTR) 500-400 mg cap [...] DX W/COLLJ SPEC WHEN PFRMD 08/14/09 Colonoscopy [facility] inpt COLONOSCOPY W/BIOPSY SINGLE/MULTIPLE 09/21/07 EGD TRANSORAL [...] CABG X4 Diabetes Father Heart Paternal Grandfather MN'S Diabetes Paternal Grandmother Emphysema Maternal Grandfather Heart [...] or procedures, and care coordination. NATALY Farley, [place], CECILIA * Charla Perez - 07/10/2022 2:20 PM EST PSA,Total - Annual Screen on 07-06-2022 PSA,TOT SCREEN 158.00 ng/mL High 0.00-4.00 [facility] Comment on above: Result Comment: This test was performed using the TPSAassay method for the smsPREP chemistry system. Values obtained with different assay methods cannot be used interchangably. When changing PSA assays in the course of monitoring a patient, additional sequential testing should be carried out to confirm baseline values. Performed By: #### L501.9910, L500.4050, L100.0100 ####[facility] [address] 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 chronic Essential (primary) hypertension chronic Hyperlipidemia chronic History of endovascular sten t graft for abdominal aortic aneurysm (AAA) June 25, 2020 resolved BPH (benign prostatic hyperplasia) chronic Essential (primary) hypertension chronic Insomnia chronic Complete small bowel obstruction acute [facility] Work Phone: 1(339) 290-558502-23-2021 Evaluation note* Diagnosis Onset Date Resolution Status Insomnia chronic Carotid stenosis, left acute History of left inguinal hernia repair acute History of endovascular sten t graft for abdominal aortic aneurysm (AAA) June 25, 2020 resolved Asthma chronic 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 Insomnia chronic 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 chronic Essential (primary) hypertension chronic Hyperlipidemia chronic History of endovascular sten t graft for abdominal aortic aneurysm (AAA) June 25, 2020 resolved BPH (benign prostatic hyperplasia) chronic Essential (primary) hypertension chronic Insomnia chronic Partial bowel obstruction ac picayune AAA (abdominal aortic aneurysm) chronic Asthma chronic BPH (benign prostatic hyperplasia) chronic Coronary artery disease 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 radiant analyst brock History of colon cancer 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 radiant analyst brock Insomnia chronic [facility] Work Phone: 1(532) 482-620702-23-2021 Evaluation note* Diagnosis Onset Date Resolution Status Carotid stenosis, left acute History of left inguinal hernia repair acute History of endovascular sten t graft for abdominal aortic aneurysm (AAA) June 25, 2020 resolved 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 chronic Essential (primary) hypertension chronic Hyperlipidemia chronic History of endovascular sten t graft for abdominal aortic aneurysm (AAA) June 25, 2020 resolved Essential (primary) hypertension chronic [facility] Work Phone: 1(910) 225-902812-15-2019 Consult note Author Amrita Novak [facility] Note Date/Time July 18, 2024 3:0 2pm [facility] Medical Records Department [address] [place] [address] Anesthesia Postop Eval I 07/18/24 1459 MR#: [id number] Acct: [id number] Name: BETTE CLEMENTS Rep #:[id number] : 1945 79 From: Amrita Novak CRNA PCP: KAI BurkC Status:REG SDC Y Race: C Location: [place] [address] Anesthesia: Postop Eval I Current Vital Signs [...] document: Postop Eval 1 completed: Yes 07/18/24 8678 <Electronically signed by Amrita MILLAN NA> Date _ Amrita Novak CRNA Cosigner Signature: Date CC: ~ Signed [facility] Work Phone: 1([phone]) 206-921505-09-2016 History of Past illness Narrative* Problem Noted Date Resolved Date Skin lesion 09/09/2015 03/03/2019 Other affections of shoulder region, not elsewhere classified 03/05/2009 06/15/2011 Renal failure, unspecified 12/06/200706/15 Abdominal pain, right lower quadrant 08/09/2007 12/10/2009 Unspecified hypertrophic and atrophic condition of skin 02/27/2006 06/12/2010 Reflux esophagitis 06/12/2010 documented as of this encounter (statuses as of 07/22/2022) [facility] Allison Mckeon [facility] November 16, 2022 11:37am Note Date/Time November 16, 2022 11:3 7am [facility] Medical Records Department [address] [place] [address] Counseling Note - Pharmacy 11/16/22 1136 MR#: [id number] Acct: [id number] Name: BETTE CLEMENTS Rep #:[id number] : 1945 77 From: Allison Mckeon PCP: Dr. Spenser Sanchez MD Status:A DM IN Y Location: [place] [address] [place] Med Reconciliation Pharmacy Service has performed discharge medication reconciliation for this patient. care aid, Niraj, attempted to halfway house counselor. However, patient said he has had [...] for nebulization 0.5 mg (2 mL) inhalation Z53Xtvwm #180 mL 03/25/22 verapamil 240 mg tablet,extended [...] calcium 325 mg-vit D3 12.5 mcg-zinc 2.75 zr-fxeojf-zdeypchoh tablet (Citracal-H6Allpppe Plus) 2 tab PO BID bone deficiency 11/14/22 nitroglycerin 0.4 mg sublingual tablet 0.4 mg sublingual Q5M PRN Cardiac/Chest Pain #20 tabs 11/16/22 11/16/22 1137 <Electronically signed by Allison Mckeon> Date _ Allison Mckeon Cosigner Signature (if applicable): Date CC: ~ Signed [facility] Work Phone: Discharge summary Author Dr. Saldivar [facility] July 26, 2022 12:53pm Note Date/Time July 26, 2022 12: 52pm [facility] Medical Records Department [address] [place] [address] Instructions for Home/Discharge Instructions 07/26/22 1251 MR#: [id number] Acct: [id number] Name: BETTE CLEMENTS Rep #:[id number] : 1945 77 From: Tiki Saldivar MD [...] can be placed): Home, Self Care 07/26/22 1253<Electronically signed by Tiki Saldivar MD>Tiki Saldivar MD CC: Dr. Spenser Sanchez MD; Dr. Robel Figueredo MD ~ Signed [facility] Work Phone: Discharge summary Author Heri Ewing [facility] November 16, 2022 11:00am Note Date/Time November 16, 2022 10:5 7am [facility] Medical Records Department [address] [place] [address] Instructions for Home/Discharge Instructions 11/16/22 1055 MR#: [id number] Acct: [id number] Name: BETTE CLEMENTS Rep #:[id number] : 1945 77 From: Heri Ewing DO [...] nostril multivitamin Tablet 2 tab PO DAILY twimtlk-N9-lchv-copper-odalys [Citracal-D3 Maximum Plus] 325 mg-12.5 mcg -2.75mg [...] Weeks Sara Fabian PA [Med Staff - [facility]] - 11/20/22 8:30 am Disposition Disposition (needs filled in before D/C Order can be placed): Home, Self Care 11/16/22 1100<Electronically signed by Heri Ewing DO>Heri Ewing DO CC: Dr. Delma Gonsalves MD; Dr. Spenser Sanchez MD; Dr. Bethel Gallegos MD; Dr.Natthavat Mini MD ~ Signed [facility] Work Phone: Discharge summary Author [facility] November 16, 2022 11:01am Note Date/Time November 16, 2022 11:0 1am [facility] Medical Records Department [address] [place] [address] Discharge Summary 11/16/22 1100 MR#: [id number] Acct: [id number] Name: BETTE CLEMENTS Rep #:[id number] : 1945 77 From: Heri Ewing DO PCP: Dr. Spenser Sanchez MD Status:A DM IN Location: [place] [address] Providers Date of Admission: 11/14/22 Primary Care [...] for nebulization 0.5 mg (2 mL) inhalation A65Omgrg #180 mL 03/25/22 verapamil 240 mg tablet,extended [...] calcium 325 mg-vit D3 12.5 mcg-zinc 2.75 mn-qqtheq-nnjuvkmbv tablet (Citracal-W1Mfpnjnr Plus) 2 tab PO BID bone deficiency [...] Clarity Clear, Urine pH 6.5, Ur Specific [place] 1.010, Urine Protein Negative, Urine Glucose (UA) [...] Kimberley not ordered:: Allergy Done w/ Acute [place] measure.: Yes Documented LVEF (%): 45 Discharge [...] nostril multivitamin Tablet 2 tab PO DAILY isqdnzz-F1-znlc-copper-odalys [Citracal-D3 Maximum Plus] 325 mg-12.5 mcg -2.75mg [...] Weeks Sara Fabian PA [Med Staff - [facility]] - 11/20/22 8:30 am Disposition Disposition (needs filled in before D/C Order can be placed): Home, Self Care Charges/Coding Visit Charges Inpatient E&M: 04943 Disch Hosp >30min 11/16/22 1101 <Electronically signed by eHri Ewing DO> Cosigner Signature (if applicable): CC: Dr. Spenser Sanchez MD; Dr. Heri Ewing DO~ Signed [facility] Work Phone: Discharge summary Author Rhys Fontana [facility] Note Date/Time July 28, 2024 2:1 2pm [facility] Medical Records Department [address] [place] [address] Discharge Summary 07/28/24 1359 MR#: [id number] Acct: [id number] Name: BETTE CLEMENTS Rep #:[id number] : 1945 79 From: Rhys fallon MD PCP: CODY Burk Status:ADM KISHORE Location: [place] [address] Providers Date of Admission: 07/27/24 Primary Care [...] for nebulization 0.5 mg (2 mL) inhalation C99Tkrkibiltd #180 mL 06/14/24 Hospital Course Operations None Procedures None Summary of Care Provided Minutes Spent on Discharge: 38 Hospital Course: Per HPI: BETTE CLEMENTS, is a 79M with history of coronary artery disease status post PCI on Plavix, prostate cancer status post radiation and current hormonal therapy with Dr. Montaño, previous colon cancer status post colon resection, previous GI bleed presented to [facility] ED 07/27/2024 for evaluation of repeat GI [...] 70.4 H, Lymph % (Auto) 12.7 L, [place] % (Auto) 8.7, Eos % (Auto) 6.6 [...] .ROUTE .MEDSUPPLY Qty: 1 0RF Rx Instructions: oszfqxr3402/12/2028 formoterol fumarate [Perforomist] 20 mcg/2 mL solution [...] Up: Marian Rodriguez PA [Med Staff - [facility]] - 08/02/24 10:00 am Jeremiah Mckeon, MEDICATION CARE MANAGER-C [Primary Care Provider] - Within 1 Week Disposition Disposition (needs filled in before D/C Order can be placed): Home, Self Care Charges/Coding Visit Charges Inpatient E&M: 27218 Disch Hosp >30min 07/28/24 1412 <Electronically signed by Rhys Fontana MD> Cosigner Signature (if applicable): CC: MEDICATION CARE MANAGER-C Jeremiah Mckeon; Dr. Rhys Fontana MD~ Signed [facility] Work Phone: Discharge summary Author Tiki Saldivar [facility] Note Date/Time August 11, 2024 12: 36pm [facility] Medical Records Department [address] [place] [address] Instructions for Home/Discharge Instructions 08/11/24 1232 MR#: [id number] Acct: [id number] Name: BETTE CLEMENTS Rep #:[id number] : 1945 79 From: Tiki Saldivar MD [...] Provider: Tiki Saldivar Primary Care Provider: Jeremiah Mckeno Consulting Providers: Rhys Fontana Instructions Patient Instructions: ED Fall Prevention Additional Instructions / Restrictions: DISCHARGE INSTRUCTIONS PLEASE READ *Please take this with you to your next doctors appointment* -You will need to follow-up with Dr. Gonzáles with GI in his office upon discharge. Please call his office to schedule an appointment (ph. [phone]) -You will need a repeat colonoscopy in [...] .ROUTE .MEDSUPPLY Qty: 1 0RF Rx Instructions: [id number]/12/2028 formoterol fumarate [Perforomist] 20 mcg/2 mL solution [...] Referrals / Follow Up: Faraz Gonzáles DO [[facility] Staff - Active Staff] - ( -You will need to follow-up with Dr. Gonzáles with GI in his office upon discharge. Please call his office to schedule an appointment (ph. [phone])) Jeremiah Mckeon, MEDICATION CARE MANAGER-C [Primary Care Provider] - In 1 Week Disposition Disposition (needs filled in before D/C Order can be placed): Home, Self Care 08/11/24 1236<Electronically signed by Tiki Saldivar MD>Tiki Saldivar MD CC: MEDICATION CARE MANAGER-C Jeremiah Mckeon; Dr. Rhys Fontana MD ~ Signed [facility] Work Phone: Discharge summary Author Tiki Saldivar [facility] Note Date/Time August 11, 2024 12: 38pm [facility] Medical Records Department [address] [place] [address] Instructions for Home/Discharge Instructions 08/11/24 1237 MR#: [id number] Acct: [id number] Name: BETTE CLEMENTS Rep #:[id number] : 1945 79 From: Tiki Saldivar MD PCP: Jeremiah Mckeon, MEDICATION CARE MANAGER-C Status:ADM IN Discharge Instructions Diet Discharge Diet: [...] Tiki Saldivar Primary Care Provider: Jeremiah Mckeon [facility] Consulting Providers: Rhys Fontana Instructions Patient Instructions: [...] call his office to schedule an appointment (. [phone]) -You will need a repeat colonoscopy in [...] .ROUTE .MEDSUPPLY Qty: 1 0RF Rx Instructions: miyisib3302/12/2028 formoterol fumarate [Perforomist] 20 mcg/2 mL solution [...] his office to schedule an appointment (ph. [phone])) Jeremiah Mckeon, MEDICATION CARE MANAGER-C [Primary Care Provider] - In 1 Week Disposition Disposition (needs filled in before D/C Order can be placed): Home, Self Care 08/11/24 1238<Electronically signed by Tiki Saldivar MD>Tiki Saldivar MD CC: MEDICATION CARE MANAGER-C Jeremiah Mckeon; Dr. Rhys Fontana MD ~ Signed [facility] Work Phone: Discharge summary Author Barney Eli [facility] Note Date/Time January 07, 2025 9:55am [facility] Medical Records Department [address] [place] [address] Emergency Department Summary 01/07/25 MR#: [id number] Acct: [id number] Name: BETTE CLEMENTS Destiny Rep #:[id number] : 1945 79 From: Barney Eli MD PCP: CODY Burk Status:PRE ER Location: ED HPI History of Present Illness Chief Complaint: Other, Pain/Inj Detail of Chief Complaint: Arthralgias Informant: patient Narrative Narrative: 79-year-old male has a longstanding history of polyarthritis, he states has beenworse for the past 3 weeks or so, he states his PCP put him on a prednisone taper that worked really well until he ran out 2 days ago now he is in a lot of severe pain again. The most affected joints are as follows: Left shoulder, right wrist, right hip, both knees, both ankles. He denies any systemic symptomssuch as fevers, chills, redness, warmth, swelling, or dyspnea. He has a historyof COPD, that has been stable recently. He denies injury. He states it is muchworse in the mornings, and much better in the evening even if he is not on the prednisone. 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 Old inferior [...] Disability Placard #1 ea 02/11/23 Unknown Rx furosemide 40 mg tablet 40 mg PO [...] budesonide 0.5 mg/2 mL suspension 0.5 mg inhalation Q1 2H PRN 10/16/24 Unknown History for nebulization breathing isosorbide mononitrate 30 mg 30 mg PO QHS heart Unknown History tablet,extended release 24 hr formoterol fumarate 20 mcg/2 mL 2 ml inhalation Q12H # 120 mL 10/26/24 Unknown Rx solution for nebulization (Perforomist) tiotropium 2.5 mcg-olodaterol 2.5 2 inh inhalation GLENIS LY #4 grams 11/08/24 Unknown Rx mcg/actuation mist for inhalation (Stiolto Respimat) meloxicam 7.5 mg tablet 7.5 mg PO DAILY PRN pain #4 tabs 01/07/25 Unknown Rx prednisone 10 mg tablet 10 mg PO DAILY #58 TABLETS 0 01/07/25 Unknown Rx Allergy/AdvReac Type Severity Reaction Status Date / Time aspirin Allergy Shortness Verified 01/07/25 09:36 of breath adhesive AdvReac Rash Verified 01/07/25 09:36 amoxicillin trihydrate (From AdvReac Other Verified 01/07/25 09:36 Augmentin) atorvastatin calcium (From AdvReac leg cramps Verified 01/07/25 09:36 Lipitor) isopropyl alcohol AdvReac Rash Verified 01/07/25 09:36 metoprolol succinate (From AdvReac Rash Verified 01/07/25 09:36 Toprol XL) naproxen (From Naprosyn) AdvReac Shortness Verified 01/07/25 09:36 of breath paroxetine HCl (From Paxil) AdvReac Unknown Verified 01/07/25 09:36 potassium clavulanate (From AdvReac tingling Verified 01/07/25 09:36 Augmentin) all over propoxyphene HCl (From AdvReac Unknown Verified 01/07/25 09:36 Darvon) sertraline HCl (From Zoloft) AdvReac Unknown Verified 01/07/25 09:36 simvastatin (From Zocor) AdvReac Unknown Verified 01/07/25 09:36 tiotropium bromide (From AdvReac Other Verified 01/07/25 09:36 Spiriva with HandiHaler) Family History Father Heart disease Hypertension High cholesterol CVA (cerebral vascular accident) Mother Dementia Surgical History (Reviewed 09/27/24 @ 14:19 by Monalisa Lyon MEDICATION CARE MANAGER, MEDICATION CARE MANAGER-C) History of coronary artery stent placement H/O [...] hernia repair History of tonsillectomy Social History housing: [place] Smoking Status: Former smoker pack-years: 67 second [...] Denies chest pain or palpitations Respiratory/Chest Respiratory/Chest: Denies cough or dyspnea Gastrointestinal Gastrointestinal: Denies abdominal pain, diarrhea, nausea or vomiting Genitourinary Genitourinary ED: Denies dysuria or hematuria Musculoskeletal Musculoskeletal: Reports arthralgias and back pain; Denies neck pain Integumentary Denies abscess or rash Neurologic Neurologic: Denies headache(s), paresthesias or weakness Psychiatric Psychiatric: Denies anxiety or suicidal thoughts EXAM Physical Exam Const Vital Signs: 01/07/25 09:34 01/07/25 09:47 Temperature 97 F L Temperature Source Temporal Pulse Rate 73 Respiratory Rate 16 Respiratory Effort Normal Non-Labored Respiratory Pattern Normal Blood Pressure 174/76 H Blood Pressure Mean 108 Pulse Ox 99 Oxygen Delivery Method Room Air Positive well nourished and well developed General Appearance ED: well developed and NAD HEENT Reports moist mucous membranes normocephalic and atraumatic Eyes PERRL and EOMs intact bilaterally Neck full ROM and supple Resp normal respiratory effort and clear to auscultation bilaterally Cardio regular rate, regular rhythm and no murmurs GI non-distended Back/Spine no CVA tenderness General Back: other FROM Extremity normal to inspection Extremity Narrative: Limited range of motion of affected joints due to pain. Left shoulder seems to be the most painful for him to move even when I move it passively with internal/external rotation patient was wincing in pain. There is no excessive warmth or erythema over the joint or deformity. I can passively range all joints of both lower extremities without any significant difficulty. He has a Velcro splint on his right wrist. He is neurovascular intact distally throughout all 4 extremities and is able to walk but with pain. General Extremety ED: Negative for edema, pulses abnormal or tenderness General Extremity: Negative for edema or pulses abnormal Neuro oriented x3, CN's II-XII intact bilaterally and no sensory deficits noted Sensorium / Orientation: awake and alert Motor Exam: strength 5/5 throughout Skin no rashes or lesions noted and no wounds MDM MDM MDM Narrative Medical decision making narrative: This patient symptoms are concerning for rheumatoid arthritis. He just finisheda 2-week plus prednisone taper 2 days ago and he states he is scheduled to see his primary care provider 2 days from now when he expects to get a lot of testing. I advised him it would be better for him to wait until after the testing is performed to start the prednisone, in the meantime I offered prescription analgesics, he does not want anything narcotic including tramadol, I am going to put him on just several days worth of meloxicam since he has a history of some mild renal insufficiency according to old labs, for pain. I am also giving him a prescription for prednisone and encouraged him to try to wait until after he sees his primary care provider to start it. Discharge Plan Triage Chief Complaint: Other, Pain/Inj ED Provider: Barney Eli Dx/Rx/DC Orders Clinical Impression: Polyarthritis Instructions: Polyarthritis, ED Rheumatoid Arthritis Prescriptions: New prednisone 10 mg tablet 10 mg PO DAILY Qty: 58 0RF Rx Instructions: 4 po qd x 7 days, 3 po qd x 4d, 2 po qd x 3 days, 1 po qd x 3 days meloxicam 7.5 mg tablet 7.5 mg PO DAILY PRN (Reason: pain) Qty: 4 0RF No Action isosorbide mononitrate 30 mg tablet extended release 24 hr 30 mg PO QHS budesonide 0.5 mg/2 mL suspension for nebulization 0.5 mg inhalation Q12H PRN (Reason: breathing) (DME) Disability Placard See Rx Instructions .ROUTE .MEDSUPPLY Qty: 1 0RF Rx Instructions: [id number]/12/2028 furosemide 40 mg tablet 40 mg PO DAILY PRN (Reason: edema) Qty: 30 6RF clopidogrel 75 mg tablet 75 mg PO DAILY Qty: 90 3RF verapamil 240 mg tablet extended release 240 mg PO QHS Qty: 90 3RF tamsulosin 0.4 mg capsule 0.4 mg PO BID Qty: 180 1RF Rx Instructions: take one tab PO bid formoterol fumarate [Perforomist] 20 mcg/2 mL solution for nebulization 2 ml inhalation Q12H Qty: 120 11RF Stiolto Respimat 2.5-2.5 mcg/actuation mist 2 inh inhalation DAILY Qty: 4 2RF Primary Care Provider: Jeremiah cMkeon Referrals: Jeremiah Mckeon, CODY [Primary Care Provider] - Keep Brittney appointment Print Language: Kazakh Disposition Disposition: Home, Self Care What to do if you have Problems For any increased pain, shortness of breath, bleeding, nausea or vomiting, chestpain, or any unexpected problems, contact your Primary Care Provider. Call [facility] ([phone]) or report to the closest Emergency Room. Call 911 if necessary. 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 radiant analyst brock Essential (primary) hypertension chronic Insomnia chronic Asthma chronic 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 Asthma chronic Essential (primary) hypertension chronic Insomnia chronic 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 chronic Essential (primary) hypertension chronic Hyperlipidemia chronic History of endovascular sten t graft for abdominal aortic aneurysm (AAA) June 25, 2020 resolved [facility] Work Phone: Evaluation note* Diagnosis Onset Date Resolution Status Asthma chronic Essential (primary) hypertension chronic Insomnia chronic 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 chronic Essential (primary) hypertension chronic Hyperlipidemia chronic History of endovascular sten t graft for abdominal aortic aneurysm (AAA) June 25, 2020 resolved Therapeutic drug monitoring acute Essential (primary) hypertension chronic Insomnia chronic [facility] Work Phone: evaluation note* Diagnosis Onset Date Resolution Status Therapeutic drug monitoring acute Essential (primary) hypertension chronic Insomnia chronic Insomnia chronic Carotid stenosis, left acute History of left inguinal hernia repair acute History of endovascular sten t graft for abdominal aortic aneurysm (AAA) June 25, 2020 resolved [facility] Work Phone: evaluation note* Diagnosis Onset Date Resolution Status Therapeutic drug monitoring acute Essential (primary) hypertension chronic Insomnia chronic Insomnia chronic Carotid stenosis, left acute History of left inguinal hernia repair acute History of endovascular sten t graft for abdominal aortic aneurysm (AAA) June 25, 2020 resolved Asthma chronic 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 [facility] Work Phone: evaluation note* Diagnosis Onset Date Resolution Status Therapeutic drug monitoring acute Essential (primary) hypertension chronic Insomnia chronic Insomnia chronic Carotid stenosis, left acute History of left inguinal hernia repair acute History of endovascular sten t graft for abdominal aortic aneurysm (AAA) June 25, 2020 resolved Asthma chronic 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 Insomnia chronic 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 chronic Essential (primary) hypertension chronic Hyperlipidemia chronic History of endovascular sten t graft for abdominal aortic aneurysm (AAA) June 25, 2020 resolved BPH (benign prostatic hyperplasia) chronic Essential (primary) hypertension chronic Insomnia [facility] Work Phone: evaluation note* Diagnosis Elevated prostate specific antigen (PSA)- Primary Atherosclerosis of coronary artery of quechan heart without angina pectoris, unspecified vessel or lesion type Personal history of rectal cancer Personal history of malignant neoplasm of rectum, rectosigmoid junction, and anus Chronic obstructive pulmonary disease, unspecified COPD type (HCC) [facility] Diagnosis Onset Date Resolution Status Essential (primary) hypertension chronic Insomnia chronic Insomnia chronic Essential (primary) hypertension chronic Insomnia chronic Prostate CA chronic Trigger finger acute [facility] Work Phone: evaluation note* Diagnosis Onset Date Resolution Status Insomnia chronic Essential (primary) hypertension chronic Insomnia chronic Prostate CA chronic Trigger finger acute 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 NSTEMI, initial episode of care acute [facility] Work Phone: evaluation note* Diagnosis Onset Date Resolution Status Insomnia chronic Essential (primary) hypertension chronic Insomnia chronic Prostate CA chronic Trigger finger acute 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 Acute non-ST elevation myoca rdial infarction (NSTEMI) acute Chronic kidney disease, stage 3b acute Hypokalemia acute NSTEMI, initial episode of care acute 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 chronic Essential (primary) hypertension chronic History of coronary artery stent placement June chronic Hyperlipidemia chronic 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, 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 Prostate CA chronic 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 History of endovascular sten t graft for abdominal aortic aneurysm (AAA) June 25, 2020 resolved [facility] Work Phone: evaluation note* Diagnosis Onset Date Resolution Status Insomnia [...] aortic aneurysm (AAA) June 25, 2020 resolved [facility] Work Phone: Evaluation note* Diagnosis Onset Date Resolution Status 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 acute HFrEF (heart failure with re duced ejection fraction) acute SOB (shortness of breath) ac picayune History of endovascular sten t graft for abdominal aortic aneurysm (AAA) June 25, 2020 resolved Asthmatic bronchitis with exacerbation acute [id number] acute [id number]-[id number] acute ZDT-[id number] acute RPZ-QCVR-[id number] acute MEZ-[id number] acute Trigger finger, right middle finger acute Trigger finger, right ring finger acute Preoperative evaluation to r ule out surgical contraindication acute Prostate CA acute Hypertension chronic Insomnia chronic [facility] Work Phone: Evaluation note* Diagnosis Onset Date Resolution Status 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 acute HFrEF (heart failure with re duced ejection fraction) acute SOB (shortness of breath) ac picayune History of endovascular sten t graft for abdominal aortic aneurysm (AAA) June 25, 2020 resolved Asthmatic bronchitis with exacerbation acute [id number] acute [id number] acute QZD-[id number] acute UPN-AFSV-[id number] acute NFK-IUDU-[id number] acute Trigger finger, right middle finger acute Trigger finger, right ring finger acute Preoperative evaluation to r ule out surgical contraindication acute Prostate CA acute Hypertension chronic Insomnia chronic Carotid stenosis, left acute History of endovascular sten t graft for abdominal aortic aneurysm acute [facility] Work Phone: Evaluation note* Diagnosis Onset Date Resolution Status Asthmatic bronchitis with exacerbation acute [id number] acute KMD-[id number] acute KPK-[id number] acute JPH-[id number] acute HSC-TLWJ-[id number] acute Trigger finger, right middle finger acute Trigger finger, right ring finger acute Preoperative evaluation to r ule out surgical contraindication acute Prostate CA acute Hypertension chronic Insomnia chronic Carotid stenosis, left acute History of endovascular sten t graft for abdominal aortic aneurysm acute Bronchiectasis chronic Trigger finger, right middle finger acute Trigger finger, right ring finger acute [facility] Work Phone: Evaluation note* Diagnosis Onset Date Resolution Status Preoperative evaluation to r ule out surgical contraindication acute Prostate CA acute Hypertension chronic Insomnia chronic Carotid stenosis, left acute History of endovascular sten t graft for abdominal aortic aneurysm acute Bronchiectasis chronic Trigger finger, right middle finger acute Trigger finger, right ring finger acute 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 acute HFrEF (heart failure with re duced ejection fraction) acute History of endovascular sten t graft for abdominal aortic aneurysm (AAA) June 25, 2020 resolved [facility] Work Phone: History and physical note Author Delma Gonsalves [facility] November 14, 2022 6:15am Note Date/Time November 14, 2022 5:15 am [facility] Medical Records Department [address] [place] [address] H&P Exam - Hospitalist 11/14/22511 MR#: [id number] Acct: [id number] Name: BETTE CLEMENTS Rep #:[id number] : 1945 77 From: Delma Gonsalves MD PCP: Dr. Spenser Sanchez MD Status:A DM IN [facility] - General General Date of [...] with Dr. Steinberg who presents [facility] ED on 11/14/22 with history of [...] case was discussed per ED physician with second vp hr assessment Dr. Henson noted possible catheterization Wednesday if remain chest pain-free. 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 Back pain [...] for nebulization 0.5 mg (2 mL) inhalation G65Hhrjz #180 mL 03/25/22 [Rx Last Taken 07/23/22] [...] % (Auto) 63.8, Lymph % (Auto) 19.2, [place] % (Auto) 7.4, Eos % (Auto) 8.5 [...] with Dr. Steinberg who presents to the [facility] ED on 11/14/22 with history of [...] CODE status: Patient ROXANA is his son Rob and living will is currently in place. [...] 60 minutes. Charges/Coding Visit Charges Inpatient E&M: 66489 Init Hosp L2 Procedures Hospitalists Procedures: 19951 Advncd Care Plan 30 Min 11/14/22 0614 [...] MD; Dr. Spenser Sanchez MD ~* Signed [facility] Work Phone: History and physical note Author Faraz Gonzáles [facility] Note Date/Time July 18, 2024 2:2 6pm [facility] Medical Records Department [address] [place] [address] History & Physical Exam 07/18/24 1423 MR#: [id number] Acct: [id number] Name: BETTE CLEMENTS Rep #:[id number] : 1945 79 From: Faraz Gonzáles DO PCP: CODY Burk Status:[facility] Location: [place] [address] HPI - General General Date of Admission: [...] on hormone injections for prostate CA PLAVIX [facility] Medical History Marijuana use Prostate disease [...] (primary) hypertension Hyperlipidemia 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 Old inferior [...] tablet 75 mg PO DAILY #90 tabs 10 024 07/12/24 Rx verapamil 240 mg tablet,extended [...] Today Medications: New hydrocortisone 2.5% 1 applic TX QD-BID PRN 30 grams 0RF rectal bleeding [...] Gonzáles DO> Cosigner Signature (if applicable): CC: MEDICATION CARE MANAGERAnshulC Jeremiah Mckeon; Faraz Gonzáles DO~ Signed [facility] Work Phone: History and physical note Author Tiki Saldivar [facility] Note Date/Time July 27, 2024 4:3 5pm [facility] Medical Records Department [address] [place] [address] H&P Exam - Hospitalist 07/27/24 1608 MR#: [id number] Acct: [id number] Name: BETTE CLEMENTS Rep #:[id number] : 1945 79 From: Tiki Saldivar MD PCP: CODY Burk Status:ADM [place] Location: [place] [address] HPI - General General Date of Admission: 07/27/24 Date of Service: 07/27/24 Chief Complaint: Diarrhea and blood in stool HPI Narrative BETTE CLEMENTS, is a 79M with history of coronary artery disease status post PCI onPlavix, prostate cancer status post radiation and current hormonal therapy with Dr. Montaño, previous colon cancer status post colon resection, previous GI bleedpresented to [facility] ED 07/27/2024 for evaluation of repeat GIbleed. [...] no nausea or vomiting, no urinary symptoms. 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 Tiki Saldivar MD~ Signed [facility] Work Phone: Hospital Discharge instructions Additional Instructions The skin glue will dissolve itself, return for any signs of infection.[facility] Work Phone: Hospital Discharge instructions Additional Instructions Log your blood pressure daily and follow-up with either Dr. Christiano Steinberg or Dr Sanchez to determine if they want to start you on a blood pressure medication.[facility] Work Phone: Progress note Author Nano Long [facility] November 16, 2022 11:07am Note Date/Time November 16, 2022 11:0 7am [facility] Medical Records Department [address] [place] [address] Progress Note - Nephrology 11/16/22 1101 MR#: [id number] Acct: [id number] Name: BETTE CLEMENTS Rep #:[id number] : 1945 77 From: Nano dominguez MEDICATION CARE MANAGER-C PCP: Dr. Spenser Sanchez MD Status:A DM IN Location: [place] [address] Subjective Subjective Following for a DOMENICA on [...] Clarity Clear, Urine pH 6.5, Ur Specific [place] 1.010, Urine Protein Negative, Urine Glucose (UA) [...] postponed till tomorrow due to unavailability of second vp hr assessment. Patient has decided to be discharged to home today (he cares for his demented ) and will follow-up with cardiology. -We will arrange for hospital follow-up 11/16/22 1107 <Electronically signed by Nano ROSS> Cosigner Signature (if applicable): CC: ~ Signed [facility] Work Phone: Reason for referral (narrative)No reason for referral information availableWSelect Medical [facility] Work Phone: Summary Purpose Family History No Family History Records Found Relationship Condition Age at Onset Recorded Date/T bull father Cardiac disease Unknown Hypertension Unknown High blood cholesterol Unknown Cerebrovascular accident (CVA) Unknown mother Dementia Unknown Advance Directives No Advanced Directives Records FoundDocuments on File Type Date Recorded 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 ACP-Advance Directive 06/07/2020 12:00 AM ACP-Power of Service Center Specialist 05/31/2020 12:44 PM Latest Code Status on File Code Status Date Activated Date Inactivated Comments Full Code 06/07/2020 10:20 AM Full Code 06/07/2020 7:37 AM 06/07/2020 10:20 AM Advance Directive Response Recorded Date/ Time Advance Directives Yes June 12:42pm Living Will Yes June 12 11:55am Power of Service Center Specialist Yes June 12, 2021 11:55am Advance Directive Response Recorded Date/ Time Advance Directives Yes June 11:42am Living Will Yes June 12 10:55am Power of Service Center Specialist Yes June 12, 2021 10:55am Advance Directive Response Recorded Date/ Time Name of Medical Power of Service Center Specialist belkis clements July 25, 2022 7:21am Advance Directives Yes June 12:42pm Living Will Yes July 25, 2022 7:21am Power of Service Center Specialist Yes July 25 7:21am Advance Directive Response Recorded Date/ Time Name of Medical Power of Service Center Specialist Rob Balderas July 25, 2022 1:07pm Advance Directives Yes June 12:42pm Living Will Yes July 25, 2022 1:07pm Power of Service Center Specialist Yes July 25 1:07pm Advance Directive Response Recorded Date/ Time Name of Medical Power of Service Center Specialist Rob Balderas July 25, 2022 1:07pm Advance Directives Yes June 12:42pm Living Will No July 31, 2022 4:24pm Power of Service Center Specialist No July 31 4:24pm Advance Directive Response Recorded Date/ Time Name of Medical Power of Service Center Specialist Rob Balderas July 25, 2022 1:07pm Name of Medical Power of Service Center Specialist milo lucio August 08, 2022 3:03pm Advance Directives Yes June 12:42pm Living Will Yes August 08, 2022 3:03pm Power of Service Center Specialist Yes August 08 3:03pm Advance Directive Response Recorded Date/ Time Name of Medical Power of Service Center Specialist Robhelen Balderas July 25, 2022 1:07pm Name of Medical Power of Service Center Specialist rob, son August 08, 2022 3:03pm Name of Medical Power of Service Center Specialist Rob Clements November 01, 2022 8:13am Advance Directives Yes June 12:42pm Living Will Yes November 01, 2022 8 :13am Power of Service Center Specialist Yes November 01, 2022 8:13am Advance Directive Response Recorded Date/ Time Name of Medical Power of Service Center Specialist Rob Bette July 25, 2022 1:07pm Name of Medical Power of Service Center Specialist rob, son August 08, 2022 3:03pm Name of Medical Power of Service Center Specialist Rob Clements November 01, 2022 8:13am Name of Medical Power of Service Center Specialist ana November 14, 2022 2:11am Advance Directives Yes June 12:42pm Living Will Yes November 14, 2022 2:11am Power of Service Center Specialist Yes November 14 2:11am Advance Directive Response Recorded Date/ Time Name of Medical Power of Service Center Specialist Rob Bette July 25, 2022 1:07pm Name of Medical Power of Service Center Specialist rob, son August 08, 2022 3:03pm Name of Medical Power of Service Center Specialist Rob Clements November 01, 2022 8:13am Name of Medical Power of Service Center Specialist Rob Clements November 14, 2022 6:29am Advance Directives Yes June 12:42pm Living Will Yes November 14, 2022 6:29am Power of Service Center Specialist Yes November 14 6:29am Advance Directive Response Recorded Date/ Time Name of Medical Power of Service Center Specialist rob, son August 08, 2022 3:03pm Name of Medical Power of Service Center Specialist Rob Clements November 01, 2022 8:13am Name of Medical Power of Service Center Specialist Rob Clements November 14, 2022 6:29am Advance Directives on File Yes November 27, 2022 7:48am Name of Medical Power of Service Center Specialist Rob Clements-s on November 27, 2022 7:48am Advance Directives Yes November 27 7:48am Living Will Yes November 27, 2022 7:48am Power of Service Center Specialist Yes November 27 7:48am Advance Directive Response Recorded Date/ Time Name of Medical Power of Service Center Specialist milo lucio August 08, 2022 3:03pm Name of Medical Power of Service Center Specialist Rob Clements November 01, 2022 8:13am Name of Medical Power of Service Center Specialist Rob Clements November 14, 2022 6:29am Advance Directives on File Yes November 27, 2022 7:48am Name of Medical Power of Service Center Specialist Rob Clements-s on November 27, 2022 7:48am Name of Medical Power of Service Center Specialist ROB November 30, 2022 11:31am Advance Directives Yes November 27 7:48am Living Will Yes November 30, 2022 11:31am Power of Service Center Specialist Yes November 30 11:31am Advance Directive Response Recorded Date/ Time Name of Medical Power of Service Center Specialist Rob Clements November 01, 2022 8:13am Name of Medical Power of Service Center Specialist Rob Clements November 14, 2022 6:29am Advance Directives on File Yes November 27, 2022 7:48am Name of Medical Power of Service Center Specialist Rob Clements-s on November 27, 2022 7:48am Name of Medical Power of Service Center Specialist ROB November 30, 2022 11:31am Advance Directives Yes November 27 7:48am Living Will Yes November 30, 2022 11:31am Power of Service Center Specialist Yes November 30 11:31am Advance Directive Response Recorded Date/ Time Advance Directives Yes March 10:01am Living Will Yes March 29 10:01am Power of Service Center Specialist Yes March 29, 2023 10:01am Advance Directive Response Recorded Date/ Time Advance Directives Yes March 11:01am Living Will Yes March 29 11:01am Power of Service Center Specialist Yes March 29, 2023 11:01am Advance Directive Response Recorded Date/ Time Living Will Yes March 29 11:01am Power of Service Center Specialist Yes March 29, 2023 11:01am Living Will Yes February 27 10:04am Power of Service Center Specialist Yes February 28, 2024 10:04am Advance Directives Yes February 28, 2024 10:04am Living Will No April 30 11:11am Power of Service Center Specialist No April 30, 2024 11:11am Living Will Yes July 17, 2024 1:20pm Power of Service Center Specialist Yes July 17 1:20pm Name of Medical Power of Service Center Specialist ON FILE July 17, 2024 1:20pm Living Will Yes April 11 2:38pm Power of Service Center Specialist Yes April 11, 2024 2:38pm Name of Medical Power of Service Center Specialist VIVEK CLEMENTS April 11, 2024 2:38pm Advance Directive Response Recorded Date/ Time Living Will Yes March 29 11:01am Do you have a Healthcare Power of Service Center Specialist? Yes March 29, 2023 11:01am Living Will Yes February 27 10:04am Do you have a Healthcare Power of Service Center Specialist? Yes February 28, 2024 10:04am Advance Directives Yes February 28, 2024 10:04am Living Will No April 30 11:11am Do you have a Healthcare Power of Service Center Specialist? No April 30, 2024 11:11am Living Will Yes July 17, 2024 1:20pm Do you have a Healthcare Power of Service Center Specialist? Yes July 17, 2024 1:20pm Name of Medical Power of Service Center Specialist ON FILE July 17, 2024 1:20pm Living Will Yes April 11 2:38pm Do you have a Healthcare Power of Service Center Specialist? Yes April 11, 2024 2:38pm Name of Medical Power of Service Center Specialist VIVEK CLEMENTS April 11, 2024 2:38pm Living Will No July 27, 2024 9:48am Do you have a Healthcare Power of Service Center Specialist? No July 27, 2024 9:48am Advance Directive Response Recorded Date/ Time Living Will Yes March 29 11:01am Do you have a Healthcare Power of Service Center Specialist? Yes March 29, 2023 11:01am Living Will Yes February 27 10:04am Do you have a Healthcare Power of Service Center Specialist? Yes February 28, 2024 10:04am Advance Directives Yes February 28, 2024 10:04am Living Will No April 30 024 11:11am Do you have a Healthcare Power of Service Center Specialist? No April 30, 2024 11:11am Living Will Yes July 17, 2024 1:20pm Do you have a Healthcare Power of Service Center Specialist? Yes July 17, 2024 1:20pm Name of Medical Power of Service Center Specialist ON FILE July 17, 2024 1:20pm Living Will Yes April 11 024 2:38pm Do you have a Healthcare Power of Service Center Specialist? Yes April 11, 2024 2:38pm Name of Medical Power of Service Center Specialist VIVEK CLEMENTS April 11, 2024 2:38pm Living Will Yes July 27, 2024 5:11pm Do you have a Healthcare Power of Service Center Specialist? Yes July 27, 2024 5:11pm Name of Medical Power of Service Center Specialist Rob Clements July 27, 2024 5:11pm Advance Directive Response Recorded Date/ Time Living Will Yes March 29 023 11:01am Do you have a Healthcare Power of Service Center Specialist? Yes March 29, 2023 11:01am Living Will Yes February 27 10:04am Do you have a Healthcare Power of Service Center Specialist? Yes February 28, 2024 10:04am Advance Directives Yes February 28, 2024 10:04am Living Will No April 30 024 11:11am Do you have a Healthcare Power of Service Center Specialist? No April 30, 2024 11:11am Living Will Yes July 17, 2024 1:20pm Do you have a Healthcare Power of Service Center Specialist? Yes July 17, 2024 1:20pm Name of Medical Power of Service Center Specialist ON FILE July 17, 2024 1:20pm Living Will Yes April 11 024 2:38pm Do you have a Healthcare Power of Service Center Specialist? Yes April 11, 2024 2:38pm Name of Medical Power of Service Center Specialist VIVEK CLEMENTS April 11, 2024 2:38pm Living Will Yes July 27, 2024 5:11pm Do you have a Healthcare Power of Service Center Specialist? Yes July 27, 2024 5:11pm Name of Medical Power of Service Center Specialist Rob Clements July 27, 2024 5:11pm Living Will Yes August 09, 2024 4:36pm Do you have a Healthcare Power of Service Center Specialist? Yes August 09, 2024 4:36pm Name of Medical Power of Service Center Specialist ? August 09, 2024 4:36pm Advance Directive Response Recorded Date/ Time Living Will Yes March 29 11:01am Do you have a Healthcare Power of Service Center Specialist? Yes March 29, 2023 11:01am Living Will Yes February 27 10:04am Do you have a Healthcare Power of Service Center Specialist? Yes February 28, 2024 10:04am Advance Directives Yes February 28, 2024 10:04am Living Will No April 30 11:11am Do you have a Healthcare Power of Service Center Specialist? No April 30, 2024 11:11am Living Will Yes July 17, 2024 1:20pm Do you have a Healthcare Power of Service Center Specialist? Yes July 17, 2024 1:20pm Name of Medical Power of Service Center Specialist ON FILE July 17, 2024 1:20pm Living Will Yes July 27, 2024 5:11pm Do you have a Healthcare Power of Service Center Specialist? Yes July 27, 2024 5:11pm Name of Medical Power of Service Center Specialist Rob Clements July 27, 2024 5:11pm Living Will Yes August 09, 2024 7:50pm Do you have a Healthcare Power of Service Center Specialist? Yes August 09, 2024 7:50pm Name of Medical Power of Service Center Specialist ? August 09, 2024 7:50pm Advance Directive Response Recorded Date/ Time Living Will Yes March 29 11:01am Do you have a Healthcare Power of Service Center Specialist? Yes March 29, 2023 11:01am Living Will Yes February 27 10:04am Do you have a Healthcare Power of Service Center Specialist? Yes February 28, 2024 10:04am Advance Directives Yes February 28, 2024 10:04am Living Will Yes July 17, 2024 1:20pm Do you have a Healthcare Power of Service Center Specialist? Yes July 17, 2024 1:20pm Name of Medical Power of Service Center Specialist ON FILE July 17, 2024 1:20pm Living Will Yes July 27, 2024 5:11pm Do you have a Healthcare Power of Service Center Specialist? Yes July 27, 2024 5:11pm Name of Medical Power of Service Center Specialist Rob Clements July 27, 2024 5:11pm Living Will Yes August 09, 2024 7:50pm Do you have a Healthcare Power of Service Center Specialist? Yes August 09, 2024 7:50pm Name of Medical Power of Service Center Specialist ? August 09, 2024 7:50pm Advance Directive Response Recorded Date/ Time Living Will Yes March 29 11:01am Do you have a Healthcare Power of Service Center Specialist? Yes March 29, 2023 11:01am Living Will Yes July 17, 2024 1:20pm Do you have a Healthcare Power of Service Center Specialist? Yes July 17, 2024 1:20pm Name of Medical Power of Service Center Specialist ON FILE July 17, 2024 1:20pm Living Will Yes July 27, 2024 5:11pm Do you have a Healthcare Power of Service Center Specialist? Yes July 27, 2024 5:11pm Name of Medical Power of Service Center Specialist Rob Clements July 27, 2024 5:11pm Living Will Yes August 09, 2024 7:50pm Do you have a Healthcare Power of Service Center Specialist? Yes August 09, 2024 7:50pm Name of Medical Power of Service Center Specialist ? August 09, 2024 7:50pm Advance Directives Yes February 28, 2024 10:04am Advance Directive Response Recorded Date/ Time Advance Directives Yes February 28, 2024 10:04am Advance Directive Response Recorded Date/ Time Do you have a Healthcare Power of Service Center Specialist? No January 07, 2025 9:47am Advance Directives Yes February 28, 2024 10:04am Reason for Referral Status Reason Specialty Diagnoses / Procedures Referred By Contact Referred To Contact Open Specialty Services Required Cardiac Rehabilitation Diagnoses S/P drug eluting coronary stent placement 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 Zulma Martini APRN - CNP [address] [address] Discharge Instructions * Instructions* Zulma Martini APRN - CNP - 06/07/2020 Call your doctor with any medication questions or if you notice any side effects from your medications. If you are unable to fill your medications, please call your Space Studies Faculty Member immediately. The office number is located with [...] for 24 hours. GIVE PCI PACKET (FROM SOAP MAKER) TO PATIENT Give Coronary Artery Discharge Booklet [...] Cardiac Rehab The Cardiac Rehabilitation Team at [facility] consists of highly skilled healthcare professionals, including [...] regarding this valuable service please call # [phone] Orientation is available on all Wednesdays at 11:30 am location in the [address] documented in this encounter Assessments Diagnosis S/P drug eluting coronary stent placement- Primary 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 Abnormal nuclear stress [...] Complaint and Reason for Visit Chief Complaint Admit Date 3 M FU September 27, 2024 2:06p m pain January 06, 2025 4:08pm pain January 07, 2025 9:33am Reason for Visit Admit Date Hypoxia September 27, 2024 2:06p m Multiple nodules of lung September 27, 2024 2:06pm 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 September 27, 2024 2:06pm Chief Complaint 3 M FU 6 M FU 3 M FU EORDER 6 M FU Reason for Visit Coronary artery dise ase Essential (primary) hypertension Insomnia Asthma 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 classification Asthma Essential (primary) hypertension Insomnia 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 Essential (primary) hypertension Hyperlipidemia History of endovascular stent graft for abdominal aortic aneurysm (AAA) Chief Complaint 3 M FU EORDER 6 M FU injection-Flu 3 M FU Reason for Visit Asthma Essential (primary) hypertension Insomnia 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 Essential (primary) [...] GOLD classification Insomnia 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 Essential (primary) [...] GOLD classification Insomnia 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 Essential (primary) [...] GOLD classification Insomnia 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 Essential (primary) [...] GOLD classification Insomnia 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 Essential (primary) [...] by GOLD classification 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 Essential (primary) [...] by GOLD classification 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 Essential (primary) hypertension Hyperlipidemia History of endovascular stent graft for abdominal aortic aneurysm (AAA) Essential (primary) hypertension Chief Complaint CAROTID US 05/01 Occlusion and stenosis of left carotid artery AAA 6 M FU SLEEPING ISSUES 6 M FU 3 M FU SBO SBO SBO LAC SOB ELEVATED PSA PROSTATE CA Reason for Visit Carotid stenosis, le ft History of left inguinal hernia repair History of endovascular stent graft for abdominal aortic aneurysm (AAA) 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 classification 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 Essential (primary) [...] episode of care 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 Essential (primary) [...] CHEST PAIN, NSTEMI CHEST PAIN, NSTEMI S/P WC NSTEMI 11/16/22 NSTEMI Reason for Visit Insomnia [...] CHEST PAIN, NSTEMI CHEST PAIN, [facility]STEMI [facility] 11/16/22 NSTEMI GENERAL ILLNESS Reason for [...] NSTEMI AM EKG CHEST PAIN, NSTEMI [facility] NSTEMI 11/16/22 NSTEMI GENERAL ILLNESS Amb Documentation CONSULT - PROSTATE EORDER S/P [facility] PCI 11/27/22 Reason for Visit Insomnia Trigger finger Acute non-ST elevation myocardial infarction (NSTEMI) 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 NSTEMI, initial episode of care History of endovascular stent graft for abdominal aortic aneurysm (AAA) Hypokalemia Acute non-ST elevation myocardial infarction (NSTEMI) 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 History of endovascular stent graft for abdominal aortic aneurysm (AAA) [id number] Acute non-ST elevation myocardial infarction (NSTEMI) 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 HFrEF (heart failure with reduced ejection fraction) SOB (shortness of breath) History of endovascular stent graft for abdominal aortic aneurysm (AAA) [id number] 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 HFrEF (heart [...] for Visit Atherosclerotic hear t disease of [place] coronary artery without angina pectoris HFrEF (heart failure with reduced ejection fraction) SOB (shortness of breath) History of endovascular stent graft for abdominal aortic aneurysm (AAA) Asthmatic bronchitis with exacerbation [id number] Trigger finger, right middle finger Trigger finger, [...] for Visit Atherosclerotic hear t disease of [place] coronary artery without angina pectoris HFrEF (heart failure with reduced ejection fraction) SOB (shortness of breath) History of endovascular stent graft for abdominal aortic aneurysm (AAA) Asthmatic bronchitis with exacerbation [id number] Trigger finger, right middle finger Trigger finger, [...] Reason for Visit Asthmatic bronchitis with exacerbation [id number] Trigger finger, right middle finger Trigger finger, [...] right ring finger 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 HFrEF (heart [...] Care, New pt from Dr. Marcos Rasmussen [facility] 2024 10:53am Other nonspecific abnormal finding of [facility] June 06, 2024 1:14pm 5 m fu June 14, 2024 1:41pm PREOP July 18, 2024 12: 30pm LACTIC ACID ELEVATION AND DEHYDRATION [facility] 2024 4:08pm Reason for Visit Admit Date [...] 2024 10:53am Other nonspecific abnormal finding of [facility] June 06, 2024 1:14pm 5 m fu June 14, 2024 1:41pm PREOP July 18, 2024 12: 30pm LACTIC ACID ELEVATION AND DEHYDRATION [facility] 2024 4:08pm LACTIC ACID ELEVATION AND DEHYDRATION [facility] 2024 1:59pm Chief Complaint Admit Date sob April 11, 2024 1:25pm 6 M FU April 19, 2024 12:55pm walk test April 21, 2024 8:56am sob April 30, 2024 10:06am AAA CAROTID STENOSIS May 04, 2024 7 :47am Bety Castano, New pt from Dr. Marcos myles 2024 10:53am Other nonspecific abnormal finding of [facility] June 06, 2024 1:14pm 5 m fu June 14, 2024 1:41pm Rectal bleeding July 18, 2024 7:0 0am PREOP July 18, 2024 12: 30pm LACTIC ACID ELEVATION AND DEHYDRATION [facility] 2024 4:08pm LACTIC ACID ELEVATION AND DEHYDRATION [facility] 2024 1:59pm Hospital FU August 02, 2024 [...] 12: 30pm LACTIC ACID ELEVATION AND DEHYDRATION [facility] 2024 4:08pm LACTIC ACID ELEVATION AND DEHYDRATION [facility] 2024 1:59pm Hospital August 02, 2024 9:53 [...] 2024 10:53am Other nonspecific abnormal finding of [facility] June 06, 2024 1:14pm 5 [facility] June 14, 2024 1:41pm Rectal bleeding July 18, 2024 7:0 0am PREOP July 18, 2024 12: 30pm LACTIC ACID ELEVATION AND DEHYDRATION [facility] 2024 4:08pm LACTIC ACID ELEVATION AND DEHYDRATION [facility] 2024 1:59pm Hospital August 02, 2024 9:53 [...] 12: 36pm Other nonspecific abnormal finding of [facility] August 31, 2024 1:20pm Reason for [...] Admit Date Other nonspecific abnormal finding of [facility] June 06, 2024 1:14pm 5 m June 14, 2024 1:41pm Rectal bleeding July 18, 2024 7:0 0am PREOP July 18, 2024 12: 30pm LACTIC ACID ELEVATION AND DEHYDRATION [facility] 2024 4:08pm LACTIC ACID ELEVATION AND DEHYDRATION [facility] 2024 1:59pm Hospital August 02, 2024 9:53 [...] 12: 36pm Other nonspecific abnormal finding of ng [facility] August 31, 2024 1:20pm 3 M [...] 2:06p m pain January 06, 2025 4:08pm Chief Complaint Admit Date 3 M FU September 27, 2024 2:06p m pain January 06, 2025 4:08pm pain January 07, 2025 9:33am BURN ON L MIDDLE FINGER January 08, 2 025 3:33pm Reason for Visit Admit Date Hypoxia September 27, 2024 2:06p m Multiple nodules of lung September 27, 2024 2:06pm 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 September 27, 2024 2:06pm Burn of finger of left hand, second degr ee January 08, 2025 3:33pm Chief Complaint Admit Date pain January 06, 2025 4:08pm pain January 07, 2025 9:33am BURN ON L MIDDLE FINGER January 08, 2 025 3:33pm NEED ORDER January 12, 2025 9:10am Reason for Visit Admit Date Burn of finger of left hand, second degr ee January 08, 2025 3:33pm Additional Source Comments (unrecognized sect ion and content) No Status Records FoundNo Status Records FoundNo Status Records FoundNo Status Records Found INFORMATION SOURCE (unrecogn ized section and content) DATE CREATED AUTHOR 06/21/2019 [facility] DATE CREATED AUTHOR AUTHOR'S ORGANIZ ATION 06/12/2020 [facility] DATE CREATED AUTHOR AUTHOR'S ORGANIZ ATION 07/14/2022 [facility] DATE CREATED AUTHOR AUTHOR'S ORGANIZ ATION 03/07/2025 [facility] Goals (unrecognized section and content) Goals [...] Status: Active Member Role Status Dates Dr. Alessandro Calabrese MD Family Provider Active Dr. Spenser Sanchez MD Primary Care Provider Active Team Status: Inactive Member Role Status Dates Dr. Spenser Sanchez MD Primary Care Provider, Refer ring Provider Active Monalisa Lyon MEDICATION CARE MANAGER, MEDICATION CARE MANAGER-C Attending Provider Active Team Status: Inactive Member Role Status Dates Dr. Spenser Sanchez MD Primary Care P rovider, Attending Provider, Referring Provider Active Team Status: Inactive Member Role Status Dates Dr. Spenser Sanchez MD Primary Care Provider Active Monalisa Lyon MEDICATION CARE MANAGER, MEDICATION CARE MANAGER-C Attending Provider, Referrin g Provider Active Team [...] Provider, Refer ring Provider Active Cody Espinoza MEDICATION CARE MANAGER, MEDICATION CARE MANAGER-C Attending Provider Active Frame Cleaner Relationship Specialty Start Date End Date Spenser Sanchez MD [id number] [address] PCP - General Internal Medicine 07/10/22 Team [...] Provider, Refer ring Provider Active Amy Morris MEDICATION CARE MANAGER, MEDICATION CARE MANAGER-C Attending Provider Active Team Status: Active Member Role Status Dates Dr. Spenser Sanchez MD Primary Care Provider Active Dr. Christiano Steinberg MD Attending Provider Active Team Status: Inactive Member Role Status Dates Dr. Spenser Sanchez MD Primary Care Provider, Refer ring Provider Active Dr. Marshall Brisceo DO Attending Provider Active Team Status: Active [...] MD Primary Care Provider Active Amy Morris MEDICATION CARE MANAGER, MEDICATION CARE MANAGER-C Attending Provider, Referring P rovider Active Team Status: Active Member Role Status Dates Dr. Spenser Sanchez MD Primary Care Provider Active Amy Morris MEDICATION CARE MANAGER, MEDICATION CARE MANAGER-C Attending Provider, Referring P rovider Active Team Status: Active Member Role Status Dates Jeremiah Mckeon Agapito, MEDICATION CARE MANAGER-C Primary Care Provider Active Team Status: Inactive [...] March 23, 2024 End: March 23, 2024 KAI OrozcoC Attending Provider Active Start: March 23, 2024 End: March 23, 2024 KAI OrozcoC Referring Provider Active Start: March 23, 2024 [...] Inactive Member Role Status Dates Tiffanie Carr MEDICATION CARE MANAGER-C Attending Provider Active Start: June 06, 2024 End: June 06, 2024 Tiffanie Carr MEDICATION CARE MANAGER-C Referring Provider Active Start: June 06, 2024 End: June 06, 2024 Jeremiah DELACRUZ, MEDICATION CARE MANAGER-C Primary Care Provider Active Start: June 06, 2024 End: June 06, 2024 Team Status: Inactive Member Role Status Dates Dr. Spenser Sanchez MD Referring Provider Active Start: June 14, 2024 End: June 14, 2024 Monalisa Lyon NP, MEDICATION CARE MANAGER-C Attending Provider Active Start: June 14, 2024 End: June 14, 2024 Jeremiah DELACRUZ, MEDICATION CARE MANAGER-C Primary Care Provider Active Start: June 14, 2024 End: June 14, 2024 Team Status: Inactive Member Role Status Dates Dr. Faraz Gonzáles DO Attending Provider Active Start: July 18, 2024 End: July 18, 2024 Jeremiah DELACRUZ, MEDICATION CARE MANAGER-C Primary Care Provider Active Start: July 18, 2024 End: July 18, 2024 Jeremiah DELACRUZ, MEDICATION CARE MANAGER-C Referring Provider Active S tart: July 18, 2024 End: July 18, 2024 Team Status: Active Member Role Status Dates Dr. Faraz Gonzáles DO Attending Provider Active Start: July 18, 2024 Dr. Faraz Gonzáles DO Other Provider Active St art: July 18, 2024 Jeremiah Mckeon JHOANC, MEDICATION CARE MANAGER-C Primary Care Provider Active Start: July 18, 2024 Jeremiah STAPLESC, MEDICATION CARE MANAGER-C Referring Provider Active S tart: July 18, 2024 Team Status: Active Member Role Status Dates Jeremiah Mckeon VSC, MEDICATION CARE MANAGER-C Primary Care Provider Active Start: July 18, 2024 End: July 18, 2024 Dr. Christiano Steinberg MD Attending Provider Active S tart: July 18, 2024 End: July 18, 2024 Dr. Christiano Steinberg MD Referring Provider Active S tart: July 18, 2024 End: July 18, 2024 Team Status: Active Member Role Status Dates Jeremiah STAPLESC, MEDICATION CARE MANAGER-C Primary Care Provider Active Start: July 26, 2024 Nanette Macdonald MEDICATION CARE MANAGER-C Attending Provider Active Start: July 26, 2024 Nanette Macdonald MEDICATION CARE MANAGER-C Referring Provider Active Start: July 26, 2024 Team Status: Active Member Role Status Dates Jeremiah STAPLESC, MEDICATION CARE MANAGER-C Primary Care Provider Active Start: July 27, 2024 Dr. Devon Reagan , DO Emergency Provider Activ e Start: July 27, 2024 Dr. Tiki Saldivar MD Admit Provider Active Star t: July 27, 2024 Dr. Tiki Saldivar MD Attending Provider Active Start: July 27, 2024 Team Status: Inactive Member Role Status Dates Jeremiah STAPLESC, MEDICATION CARE MANAGER-C Primary Care Provider Active Start: July 27, [...] Member Role Status Dates Jeremiah Mckeon VSC, MEDICATION CARE MANAGER-C Primary Care Provider Active Start: July 28, [...] Member Role Status Dates Jeremiah Mckeon VSC, MEDICATION CARE MANAGER-C Primary Care Provider Active Start: July 26, 2024 End: July 26, 2024 Nanette Macdonald MEDICATION CARE MANAGER-C Attending Provider Active Start: July 26, 2024 End: July 26, 2024 Nanette Macdonald MEDICATION CARE MANAGER-C Referring Provider Active Start: July 26, 2024 End: July 26, 2024 Team Status: Active Member Role Status Dates Jeremiah Mckeon VSC, MEDICATION CARE MANAGER-C Primary Care Provider Active Start: July 18, 2024 Dr. Yifan Coulter MD Attending Provider Active Start: July 18, 2024 Dr. Yifan Coulter MD Referring Provider Active Start: July 18, 2024 Team Status: Inactive Member Role Status Dates Jeremiah Mckeon VSC, MEDICATION CARE MANAGER-C Primary Care Provider Active Start: August 02, 2024 End: August 02, 2024 Jeremiah Mckeon VSC, MEDICATION CARE MANAGER-C Referring Provider Active S tart: August 02, 2024 End: August 02, 2024 Nanette Macdonald , MEDICATION CARE MANAGER-C Attending Provider Active Start: August 02, 2024 End: August 02, 2024 Team Status: Inactive Member Role Status Dates Jeremiah Mckeon VSC, MEDICATION CARE MANAGER-C Primary Care Provider Active Start: August 02, 2024 End: August 02, 2024 Nanette Macdonald MEDICATION CARE MANAGER-C Attending Provider Active Start: August 02, 2024 End: August 02, 2024 Nanette Macdonald MEDICATION CARE MANAGER-C Referring Provider Active Start: August 02, 2024 End: August 02, 2024 Team Status: Inactive Member Role Status Dates Jeremiah Mckeon VSC, MEDICATION CARE MANAGER-C Primary Care Provider Active Start: August 03, 2024 End: August 03, 2024 Addy Luciano VSC, MEDICATION CARE MANAGER-C Attending Provider Active Start: August 03, 2024 End: August 03, 2024 Team Status: Active Member Role Status Dates Jeremiah Mike VSC, MEDICATION CARE MANAGER-C Primary Care Provider Active Start: August 09, 2024 Dr. Viral Gutiérrez DO Emergency Provider Active Start : August 09, 2024 Dr. Rhys Fontana MD Admit Provider Active Start: August 09, 2024 Dr. Rhys Fontana MD Attending Provider Active Start: August 09, 2024 Team Status: Active Member Role Status Dates Jeremiah Mike VSC, MEDICATION CARE MANAGER-C Primary Care Provider Active Start: August 09, 2024 Dr. Viral Gutiérrez DO Emergency Provider Active Start : August 09, 2024 Dr. Rhys Fontana MD Admit Provider Active Start: August 09, 2024 Dr. Rhys Fontana MD Attending Provider Active Start: August 09, 2024 Dr. Rhys Fontana MD Other Provider Active Start: August 09, 2024 Team Status: Active Member Role Status Dates Jeremiah Mike VSC, MEDICATION CARE MANAGER-C Primary Care Provider Active Start: August 09, 2024 Dr. Viral Gutiérrez DO Emergency Provider Active Start : August 09, 2024 Dr. Rhys Fontana MD Admit Provider Active Start: August 09, 2024 Dr. Rhys Fontana MD Other Provider Active Start: August 09, 2024 Dr. Faraz Gonzáles DO Attending Provider Active Start: August 09, 2024 Team Status: Active Member Role Status Dates Jeremiah Lider VSC, MEDICATION CARE MANAGER-C Primary Care Provider Active Start: August 10, [...] Member Role Status Dates Jeremiah Mike VSC, MEDICATION CARE MANAGER-C Primary Care Provider Active Start: August 10, [...] Member Role Status Dates Jeremiah Mckeon VSC, MEDICATION CARE MANAGER-C Primary Care Provider Active Start: August 10, [...] Member Role Status Dates Jeremiah Mike VSC, MEDICATION CARE MANAGER-C Primary Care Provider Active Start: August 09, [...] Member Role Status Dates Jeremiah Mike VSC, MEDICATION CARE MANAGER-C Primary Care Provider Active Start: August 10, 2024 End: August 10, 2024 Dr. Christiano Steinberg MD Attending Provider Active S tart: August 10, 2024 End: August 10, 2024 Dr. Christiano Steinberg MD Referring Provider Active S tart: August 10, 2024 End: August 10, 2024 Team Status: Active Member Role Status Dates Jeremiah Mike VSC, MEDICATION CARE MANAGER-C Primary Care Provider Active Start: August 10, [...] Status: Active Member Role Status Dates Jeremiah Mckeno VSC, MEDICATION CARE MANAGER-C Primary Care Provider Active Start: August 11, [...] Member Role Status Dates Jeremiah Mckeon VSC, MEDICATION CARE MANAGER-C Primary Care Provider Active Start: August 31, 2024 End: August 31, 2024 Tiffanie Carr NP-C Other Provider Active St art: August 31, 2024 End: August 31, 2024 Monalisa Lyon MEDICATION CARE MANAGER, MEDICATION CARE MANAGER-C Attending Provider Active Start: August 31, 2024 End: August 31, 2024 Monalisa Lyon MEDICATION CARE MANAGER, MEDICATION CARE MANAGER-C Referring Provider Active Start: August 31, 2024 End: August 31, 2024 Dr. Aren Montaño MD Other Provider Active Start: August 31, 2024 End: August 31, 2024 Team Status: Inactive Member Role Status Dates Jeremiah Lider VSC, MEDICATION CARE MANAGER-C Primary Care Provider Active Start: September 27, 2024 End: September 27, 2024 Jeremiah Mckeon VSC, MEDICATION CARE MANAGER-C Referring Provider Active S tart: September 27, 2024 End: September 27, 2024 Monalisa Lyon MEDICATION CARE MANAGER, MEDICATION CARE MANAGER-C Attending Provider Active Start: September 27, 2024 End: September 27, 2024 Team Status: Active Member Role/Relationship Status Dates Jeremiah Lider VSC, MEDICATION CARE MANAGER-C Primary Care Provider Active Team Status: Inactive Member Role/Relationship Status Dates Jeremiah Mckeon VSC, MEDICATION CARE MANAGER-C Primary Care Provider Active Start: September 27, 2024 End: September 27, 2024 Jeremiah STAPLESC, MEDICATION CARE MANAGER-C Referring Provider Active S tart: September 27, 2024 End: September 27, 2024 Monalisa Lyon MEDICATION CARE MANAGER, MEDICATION CARE MANAGER-C Attending Provider Active Start: September 27, 2024 End: September 27, 2024 Team Status: Inactive Member Role/Relationship Status Dates Jeremiah Mckeon VSC, MEDICATION CARE MANAGER-C Primary Care Provider Active Start: January 06, 2025 End: January 06, 2025 Ed Physician Provider Emergency Provider Active Start: January 06, 2025 End: January 06, 2025 Team Status: Inactive Member Role/Relationship Status Dates Jeremiah Mckeon VSC, MEDICATION CARE MANAGER-C Primary Care Provider Active Start: January 07, 2025 End: January 07, 2025 Dr. Barney Eli MD Emergency Provider Active Start: January 07, 2025 End: January 07, 2025 Team Status: Inactive Member Role/Relationship Status Dates Jeremiah Mckeon VSC, MEDICATION CARE MANAGER-C Primary Care Provider Active Start: January 08, 2025 End: January 08, 2025 Jeremiah Mckeon VSC, MEDICATION CARE MANAGER-C Referring Provider Active S tart: January 08, 2025 End: January 08, 2025 Phi Baez PA, PA Attending Provider Active Start: January 08, 2025 End: January 08, 2025 Team Status: Active Member Role/Relationship Status Dates Jeremiah Mckeon VSC, MEDICATION CARE MANAGER-C Primary care physician Active Team Status: Inactive Member Role/Relationship Status Dates Jeremiah Mckeon VSC, MEDICATION CARE MANAGER-C Primary care physician Active Start: January 06, 2025 End: January 06, 2025 Ed Physician Provider Attending physician Active Start: January 06, 2025 End: January 06, 2025 Ed Physician Provider Emergency Departme nt Physician Active Start: January 06, 2025 End: January 06, 2025 Team Status: Inactive Member Role/Relationship Status Dates Jeremiah STAPLESC, MEDICATION CARE MANAGER-C Primary care physician Active Start: January 07, 2025 End: January 07, 2025 Dr. Barney Eli MD Attending physician Active Start: January 07, 2025 End: January 07, 2025 Dr. Barney Eli MD Emergency Depart ment Physician Active Start: January 07, 2025 End: January 07, 2025 Team Status: Inactive Member Role/Relationship Status Dates Jeremiah Mckeon VSC, MEDICATION CARE MANAGER-C Primary care physician Active Start: January 08, 2025 End: January 08, 2025 Jeremiah Lider VSC, MEDICATION CARE MANAGER-C Referring Provider Active S tart: January 08, 2025 End: January 08, 2025 Phi HINES, PA Attending physician Active Start: January 08, 2025 End: January 08, 2025 Team Status: Inactive Member Role/Relationship Status Dates Jeremiah Mckeon VSC, MEDICATION CARE MANAGER-C Primary care physician Active Start: January 12, 2025 End: January 12, 2025 Addy Beam VSC, MEDICATION CARE MANAGER-C Attending physician Active Start: January 12, 2025 End: January 12, 2025 Zebuluvan Beam VSC, MEDICATION CARE MANAGER-C Referring Provider Active Start: January 12, 2025 End: January 12, 2025 Source Comments (unrecognize d section and content) In the event this informatio n is protected by the Federal Confidentiality of Alcohol and Drug Abuse Patient Records regulations: The Federal rules restrict any use of the information to criminally investigate or prosecute any alcohol or drug abuse patient.[facility] Reason for Visit (unrecogniz ed section and [...] BE BASED ON THE PRIMARY CLINICAL RECORDS. [facility]. provides no warranty or guarantee of the accuracy or completeness of information in this document.
== END | disposition home or self-care (01) ==
LOC: VSLAB 14:00
PROVIDERS: PCP Nurse Practitioner Family
DX: I12.0 Hypertensive chronic kidney disease with stage 5 chronic kidney disease or end stage renal disease (principal); N18.9 Chronic kidney disease, unspecified
CPT/HCPCS: 36415; 80048

== ENCOUNTER → 2025-04-16 | Outpatient (CLI) | payer MEDICARE, OTHER, SELFPAY ==
[2024-02-28 10:04] VITALS: BMI 24.3
[2025-04-16 17:36] LABS: AST(SGOT) 14 U/L (<=37); Alanine Aminotransfer ALT/SGPT 6 U/L (<=46); Albumin, Serum 4.0 g/dL (3.4-4.8); Alkaline Phosphatase 57 U/L (40-129); Anion Gap 12 (5-15); BUN 21 mg/dL (4-19); BUN/Creat Ratio 15.0 RATIO (10-20); Calcium,Total 10.0 mg/dL (7.6-11.0); Carbon Dioxide 27.4 mmol/L (21.0-32.0); Chloride 103 mmol/L (98-108); Globulin 2.5 g/dL (2.2-4.2); Glucose 108 mg/dL (70-99); Potassium 4.1 mmol/L (3.3-5.1)
== END | disposition home or self-care (01) ==
LOC: VSLAB 13:18
PROVIDERS: PCP Nurse Practitioner Family
DX: I10 Essential (primary) hypertension (principal)
CPT/HCPCS: 36415; 80053